=== PATIENT | male | born 1945 | race Caucasian/White ===

== ENCOUNTER 2023-03-12 09:55 | Outpatient (OUT) | payer MEDICARE, SELFPAY ==
--- NOTE | 2023-03-12 10:06 | US_ITS ---
The [address] [address] Patient Name: CHIKI FOLEY MRN: [id number] date: 1945 Sex: M Assigned Patient Location: US Current Patient Location: US Accession/Order Number: [id number] Exam Date: 03/12/2023 10:02 Report Date: 03/12/2023 11:59 At the request of: NICOLASA MCKEON Procedure: US renal BI Ultrasound kidneys, bilateral HISTORY: Hematuria R31.29 hematuria for 15 years. COMPARISON: None. TECHNIQUE: Transabdominal ultrasound imaging of both kidneys was performed. FINDINGS: Both kidneys demonstrate normal echotexture and echogenicity. The right kidney measures 9.6 x 4.5 x 5.3 cm. There is no hydronephrosis of right kidney. The left kidney measures 10.5 x 5.0 x 6.7 cm. An echogenic structure with twinkle artifact at the lower pole compatible with a nonobstructing stone measures 1.1 x 0.8 x 0.3 cm. No hydronephrosis of left kidney. The bladder is moderately distended with volume at 213 cc. Ureteral jets not visualized. Prominent prostate gland with large central calcification measuring 1.4 cm. US/US renal BI IMPRESSION: 1. 1.1 cm nonobstructing left lower pole renal stone. Otherwise, normal kidneys for age. Negative for hydronephrosis or structural renal lesion. 2. Normal appearance of bladder. 3. [place] calcification within a prominent prostate gland. Electronically authenticated by: JASMYN ERAZO Date: 03/12/2023 11:59
== END 2023-03-12 09:56 | disposition home or self-care (01) ==
LOC: US 09:55
PROVIDERS: PCP Family Medicine; Visit Provider Urology
DX: R31.29 Other microscopic hematuria (principal); Z85.46 Personal history of malignant neoplasm of prostate; N20.0 Calculus of kidney; N42.89 Other specified disorders of prostate
CPT/HCPCS: 76775

== ENCOUNTER 2023-03-20 12:24 | Outpatient (OUT) | payer MEDICARE, SELFPAY ==
--- NOTE | 2023-03-20 12:36 | XR_ITS ---
The [address] [address] Patient Name: CHIKI FOLEY MRN: [id number] date: 1945 Sex: M Assigned Patient Location: [facility] Current Patient Location: [facility] Accession/Order Number: [id number] Exam Date: 03/20/2023 12:44 Report Date: 03/22/2023 17:16 At the request of: NICOLASA MCKEON Procedure: XR abdomen 1V EXAM: XR abdomen 1V HISTORY: Kidney Stones N20.0 COMPARISON: None. TECHNIQUE: Abdominal X-ray, 1 view FINDINGS: Support devices: None. Bowel: Unremarkable bowel gas pattern. No bowel dilatation. Evidence of constipation. No radiographic evidence of nephrolithiasis or ureterolithiasis. Additional findings: None. XR/XR abdomen 1V IMPRESSION: No radiographic evidence of nephrolithiasis or ureterolithiasis. Evidence of constipation. Electronically authenticated by: ALLIE CLARK Date: 03/22/2023 17:16
== END 2023-03-20 12:25 | disposition home or self-care (01) ==
PROVIDERS: PCP Family Medicine; Visit Provider Urology
DX: N20.0 Calculus of kidney (principal)
CPT/HCPCS: 74018

== ENCOUNTER 2023-04-02 10:13 | Outpatient (OUT) | payer MEDICARE, SELFPAY ==
--- NOTE | 2023-04-02 10:16 | CT_ITS ---
The [address] [address] Patient Name: CHIKI FOLEY MRN: [id number] date: 1945 Sex: M Assigned Patient Location: CT Current Patient Location: CT Accession/Order Number: [id number] Exam Date: 04/02/2023 10:43 Report Date: 04/02/2023 16:16 At the request of: NICOLASA MCKEON Procedure: CT abdomen pelvis wo con CT abdomen pelvis wo con CLINICAL HISTORY: Kidney Stones COMPARISON: 05/20/2019 CT abdomen/pelvis. 03/20/2023 KUB. TECHNIQUE: No IV contrast axial CT scan from lung bases through symphysis pubis. Lack of IV contrast limits evaluation of solid organs. Oral contrast was not administered. Coronal and sagittal reconstructed images generated. Dose reduction techniques were achieved by using automated exposure control and/or adjustment of mA and/or kV according to patient size and/or use of iterative reconstruction technique. FINDINGS: CT ABDOMEN FINDINGS: Normal heart size. Pacemaker leads. Lung bases with slight chronic scarring and no acute process. Liver and spleen normal in size. Multiple tiny calcified splenic greater than hepatic granulomas. Normal-sized adrenal glands. Gallbladder and pancreas unremarkable. No renal the stones or hydronephrosis. Atherosclerotic aorta without aneurysm. Left renal vascular calcifications again seen. GI tract nondilated without obstruction. Moderate to large retained stool throughout most of the colon. No significant inflammatory changes or ascites. Ventral abdominal wall fatty hernia is measuring 7.2 cm greatest axial superiorly and 5.[address] PELVIS FINDINGS: Tiny focus of nonspecific gas in the urinary bladder. Normal-sized prostate. No free fluid in the pelvis. Tiny fatty inguinal hernias. Lumbar spondylosis without acute bony process. CT/CT abdomen pelvis wo con IMPRESSION: No renal stones or hydronephrosis. Small focus of gas in the urinary bladder is nonspecific but possibly related to recent catheterization. Significant retained stool in the colon with no obstruction or free air. Ventral abdominal wall fatty hernia is are relatively similar to prior. Electronically authenticated by: SARITA SIMMONS Date: 04/02/2023 16:16
== END 2023-04-02 10:14 | disposition home or self-care (01) ==
LOC: CT 10:13
PROVIDERS: PCP Family Medicine; Visit Provider Urology
DX: N20.0 Calculus of kidney (principal)
CPT/HCPCS: 74176

== ENCOUNTER 2023-06-09 09:17 | Outpatient (OUT) | payer MEDICARE, SELFPAY ==
--- NOTE | 2023-06-09 09:21 | CT_ITS ---
[address] [address] Patient Name: CHIKI FOLEY MRN: [id number] date: 1945 Sex: M Assigned Patient Location: CT Current Patient Location: Accession/Order Number: [id number] Exam Date: 06/09/2023 09:30 Report Date: 06/10/2023 10:42 At the request of: NON-STAFF PHYSICIAN Procedure: CT chest high res EXAMINATION: CT chest high res HISTORY: Cough, Dyspnea COMPARISON: No relevant comparison available. TECHNIQUE: Axial images were obtained at 10 mm intervals during inspiration and expiration in the supine and prone positions. No IV contrast given. Dose reduction techniques were achieved by using automated exposure control and/or adjustment of mA and/or kV according to patient size and/or use of iterative reconstruction technique. FINDINGS: LUNGS: Mild emphysematous changes and chronic scarring. No acute infiltrates, air trapping, or chronic interstitial changes. PLEURA: No mass, effusion, or pneumothorax. ALEX: Calcified right hilar lymph nodes compatible with chronic granulomatous disease. MEDIASTINUM: No mass or adenopathy. CHEST WALL: Mild bilateral gynecomastia. No axillary mass or adenopathy. LIMITED ABDOMEN: No suspicious findings. Limited images of the upper abdomen. OTHER: Negative. CT/CT chest high res IMPRESSION: 1. No air trapping, fibrosis, or significant chronic interstitial changes. 2. Mild emphysematous changes. No acute infiltrates. Electronically authenticated by: SHAY BERNSTEIN Date: 06/10/2023 10:42
== END 2023-06-09 09:18 | disposition home or self-care (01) ==
LOC: CT 09:17
PROVIDERS: PCP Family Medicine
DX: R06.00 Dyspnea, unspecified (principal); R05.9 Cough, unspecified
CPT/HCPCS: 71250

== ENCOUNTER 2023-07-28 10:17 | Outpatient (OUT) | payer MEDICARE, SELFPAY | END 2023-07-28 10:18 | disposition home or self-care (01) | LOC: LAB 10:19 | PROVIDERS: PCP Family Medicine; Visit Provider Internal Medicine Interventional Cardiology | DX: R06.09 Other forms of dyspnea (principal) | CPT/HCPCS: 36415; 83880 ==

== ENCOUNTER 2023-08-06 10:04 | Outpatient (OUT) | payer MEDICARE, SELFPAY ==
--- OUTSIDE RECORDS SUMMARY | 2023-08-06 10:40 | XMS_ITS | CCD ---
Author Name Unknown Address [address] [facility] [address] [place] [address] Organization [facility] Care Team Providers Care Shoe Cleaner Name Role Phone CHANCECRESCENCIO Referring Unavailable WILL SHERWOOD Primary Care Unavailable MYA BHAKTA Attending Unavailable MYA BHAKTA Admitting Unavailable VT Procedure Practitioner Unavailab CONNOR Herrera Surgeon Unavailable MYA BHAKTA Surgeon Unavailable VT Procedure Practitioner Unavailab WILL Jackson Primary Care Physician Will Sherwood MD Primary Care Provider JARETT, DR WILL Del Toro Attending Unavailable JARETT, DR WILL Del Toro Admitting Unavailable SHERWOOD, DR WILL Del Toro Consulting Unavailable JARETT, DR WILL Del Toro Primary Care Unavailable SHERWOOD, DR WILL Del Toro Attending Unavailable JARETT, DR WILL Del Toro Admitting Unavailable JARETT, DR WILL Del Toro Consulting Unavailable JARETT, DR WILL Del Toro Primary Care Unavailable HAY, DR MORRISON Consulting Unavailable JESERYA Consulting Unavailable JARETT, DR WILL Del Toro Primary Care Unavailable MISC, DR HERRERA Admitting Unavailable MISC, DR HERRERA Attending Unavailable MISC, DR HERRERA Admitting Unavailable MISC, DR HERRERA Attending Unavailable JARETT, DR WILL Del Toro Primary Care Unavailable MISC, DR HERRERA Consulting Unavailable JENICRISTÓBAL Consulting Unavailable JENI, CRISTÓBAL Admitting Unavailable JENICRISTÓBAL Attending Unavailable JARETT, DR WILL Del Toro Primary Care Unavailable SHERWOOD, DR WILL Del Toro Attending Unavailable JARETT, DR WILL Del Toro Primary Care Unavailable SHERWOOD, DR WILL Del Toro Admitting Unavailable JARETT, DR WILL Del Toro Consulting Unavailable REGGIE, DR MORRISON Admitting Unavailable ZIEBER, DR SHAY Sewell Consulting Unavailable REGGIE, DR MORRISON Attending Unavailable JARETT, DR WILL Del Toro Primary Care Unavailable HAY, DR MORRISON Consulting Unavailable MOUKARBEL, DR BREWER Consulting Unavailable SHERWOOD, DR WILL Del Toro Primary Care Unavailable MOUKARBEL, DR BREWER Admitting Unavailable MOUKARBEL, DR BREWER Attending Unavailable SHERWOOD, DR WILL Del Toro Primary Care Unavailable JENI, CRISTÓBAL Consulting Unavailable JENI, CRISTÓBAL Admitting Unavailable JENI, CRISTÓBAL Attending Unavailable SHERWOOD, DR WILL Del Toro Primary Care Unavailable SHERWOOD, DR WILL Del Toro Consulting Unavailable JENI, CRISTÓBAL Admitting Unavailable JENI, CRISTÓBAL Attending Unavailable JENI, CRISTÓBAL Consulting Unavailable MOUKARBEL, DR BREWER Consulting Unavailable MOUKARBEL, DR BREWER Admitting Unavailable SHERWOOD, DR WILL Del Toro Primary Care Unavailable MOUKARBEL, DR BREWER Attending Unavailable SHERWOOD, DR WILL Del Toro Primary Care Unavailable MOUKARBEL, DR BREWER Consulting Unavailable MOUKARBEL, DR BREWER Admitting Unavailable MOUKARBEL, DR BREWER Attending Unavailable SHERWOOD, DR WILL Del Toro Attending Unavailable SHERWOOD, DR WILL Del Toro Admitting Unavailable SHERWOOD, DR WILL Del Toro Consulting Unavailable SHERWOOD, DR WILL Del Toro Primary Care Unavailable SHERWOOD, DR WILL Del Toro Primary Care Unavailable SHERWOOD, DR WILL Del Toro Consulting Unavailable SHERWOOD, DR WILL Del Toro Attending Unavailable SHERWOOD, DR WILL Del Toro Admitting Unavailable SHERWOOD, DR WILL Del Toro Primary Care Unavailable KUNTE, HOSEA Admitting Unavailable KUNTE, HOSEA Attending Unavailable ZIEBER, DR SHAY Sewell Consulting Unavailable KUNTE, HOSEA Consulting Unavailable SHERWOOD, DR WILL Del Toro Primary Care Unavailable ENGELER, DR DANIELLA Nicolas Consulting Unavailable ENGELER, DR BREWER P Admitting Unavailable ENGELER, DR BREWER P Attending Unavailable SHERWOOD, DR WILL Del Toro Primary Care Unavailable MOUKARBEL, DR DANIELLA Wang Unavailable MOUKARBEL, DR BREWER Attending Unavailable MOUKARBEL, DR BREWER Admitting Unavailable MISC, DR HERRERA Admitting Unavailable SHERWOOD, DR WILL Del Toro Primary Care Unavailable MISC, DR HERRERA Attending Unavailable MISC, DR HERRERA Admitting Unavailable SHERWOOD, DR WILL Del Toro Primary Care Unavailable MISC, DR HERRERA Attending Unavailable MISC, DR HERRERA Consulting Unavailable ZIEBER, DR SHAY Sewell Consulting Unavailable SHERWOOD, DR WILL Del Toro Primary Care Unavailable JENI, CRISTÓBAL Consulting Unavailable JENI, CRISTÓBAL Admitting Unavailable JENI, CRISTÓBAL Attending Unavailable FLOREZ, ALLAN Consulting Unavailable PITO PATTERSON Consulting Unavailable PITO PATTERSON Admitting Unavailable PITO PATTERSON Attending Unavailable SHERWOOD, DR WILL Del Toro Primary Care Unavailable Will Sherwood MD Primary Care Provider Pito Patterson. Primary Care Physician [phone] BERT ACEVEDO Attending Unavailable ANASTASIA SINHA Attending Unavailable CONNOR CARRERA Referring Unavailable ANASTASIA SINHA Attending Unavailable CONNOR CARRERA Referring Unavailable DANIELLA EASTON Attending Unavailable PITO PATTERSON Primary Care Unavailable TYLER DRAPER Attending Unavailable PITO PATTERSON Primary Care Unavailable Pito Patterson Attending Unavailable Pito Patterson Attending Unavailable Corwin, Marlys Valles Attending Unavailable MCKEON, Oni R Attending Unavailable MCKEON, Oni R Attending Unavailable MCKEON, Oni R Attending Unavailable MCKEON, Oni R Attending Unavailable MCKEON, Oni R Referring Unavailable MCKEON, Oni R Admitting Unavailable Corwin, Marlys L Attending Unavailable Corwin, Marlys L Admitting Unavailable Corwin, Marlys L Admitting Unavailable Corwin, Marlys L Attending Unavailable MCKEON, Oni R Admitting Unavailable MCKEON, Oni R Attending Unavailable Pito Patterson Attending Unavailable Pito Patterson Attending Unavailable Corwin, Marlys Valles Attending Unavailable Corwin, Marlys Valles Attending Unavailable Pito Patterson Attending Unavailable Corwin, Marlys Valles Attending Unavailable Pito Patterson Attending Unavailable Pito Patterson Attending Unavailable Allergies Allergy Classification Reported Allergen(s) Allergy Type Date of Onset Reaction(s) Facility (6 sources) Spironolactone; Translations: [SPIRONOLACTONE] Drug Allergy 09-18-2021 Other: See Comments [facility] Medications Current Medications Medication Drug Class(es) Dates Sig (Normalized) Sig (Original) Acetaminophen / Codeine (6 sources) Opioid Agonist Start: 02-24-2019 take 1 tablet by mouth every six hours acetaminophen-cod eine #3 tab(s), Oral, q6hr Start Date: 02/24/19 Status: Ordered acetaminophen-co deine (TYLENOL-COD #3) 300-30 mg per tablet acetaminophen 300 mg-codeine 30 mg tablet 0 Active Comment on above: acetaminophen 300 mg -codeine 30 mg tablet albuterol 0.83 mg/ml inhalation solution (13 sources) beta2-Adrenergic Agonist Start: 3 take 2.5 mg by inhalation every four hours albuterol 0.083% Inh Kasie 3 mL 2.5 mg, 3 mL, NEB, q4hr, 300 mL, Refill(s) 3, [facility]/pharmacy #[id number], 162, cm, 10/28/22 15:18:00 EDT, Height/Length Dosing, 99.8, kg, 10/28/22 15:18:00 EDT, Weight Dosing Start Date: 12/17/22 Status: Ordered Start: 12-17-2022 albuterol 0.08 3% Inh Kasie 3 mL See Instructions, 150 mL, Refill(s) 0, INHALE 1 VIAL VIA NEBULIZER EVERY 6 HOURS, [facility] STORE [id number], 162, cm, 10/28/22 15:18:00 EDT, Height/Length Dosing, 99.8, kg, 10/28/22 15:18:00 EDT, Weight Dosing Start Date: 12/17/22 Status: Ordered Start: 02-24-2019 take 1 dose by inhal ation every four hours albuterol (PROVENTIL) 2.5 mg /3 mL (0.083 %) nebulizer solution albuterol sulfate 2.5 mg/3 mL (0.083 %) solution for nebulization INHALE 1 VIAL VIA NEBULIZER EVERY 4 HOURS 0 02/24/2019 Active Start: 02-24-2019 take 1 mg by inhalat ion every six hours albuterol 0.083% Inh Kasie 3 mL mg, mL, NEB, q6hr Start Date: 02/24/19 Status: Ordered Start: 05-22-2016 PROAIR HFA 90 mcg/actuation inhaler Inhale 1 Puff as instructed as needed. 0 05/22/2016 Active Comment on above: Inhale 1 Puff as ins tructed as needed. albuterol sulfate 2. 5 mg/3 mL (0.083 %) solution for nebulization INHALE 1 VIAL VIA NEBULIZER EVERY 4 HOURS budesonide 0.25 mg/ml inhalation suspension (9 sources) Corticosteroid Start: 10-29-19 take 0.5 mg by inhalation twice daily budesonide 0.5 mg/2 mL Inh Susp 0.5 mg = 2 mL, NEB, BID, # 120 mL, Refills(s) 11, Pharmacy: [facility]/pharmacy #[id number], 162, cm, 10/28/22 15:18:00 EDT, Height/Length Dosing, 99.8, kg, 10/28/22 15:18:00 EDT, Weight Dosing Start Date: 10/28/22 Status: Ordered Start: 02-24-2019 take 0.5 mg by inhal ation twice daily budesonide 0.5 mg/2 mL Inh Susp 0.5 mg = 2 mL, NEB, BID, # 120 mL Start Date: 02/24/19 Status: Ordered budesonide (PULM ICORT) 0.5 mg/2 mL nebulizer solution 2 mL. 0 Active Comment on above: 2 mL. Calcium Citrate / Vitamin D (4 sources) Start: 02-24-2019 calcium-vitamin D Start Date: 02/24/19 Status: Ordered furosemide 40 mg oral tablet (8 sources) Loop Diuretic Start: 01-22-2023 take 1 tablet by mouth once daily furosemide 40 mg Tab 40 mg = 1 tab(s), Oral, Daily, Refills(s) 0 Start Date: 01/22/23 Status: Ordered Start: 06-26-2021 furosemide (LA SIX) 20 mg tablet q 24 HR. 0 06/26/2021 Active Comment on above: q 24 HR. gabapentin 300 mg oral capsule (3 sources) Anti-epileptic Agent Start: 03-09-2023 take 1 capsule by mouth once daily at bedtime gabapentin 300 mg Cap 300 mg = 1 cap(s), Oral, Once a day (at bedtime), # 30 cap(s), Refills(s) 0, Pharmacy: [facility]/pharmacy #[id number], 168, cm, 03/09/23 11:04:00 EDT, Height/Length Dosing, 103, kg, 03/09/23 11:04:00 EDT, Weight Dosing Start Date: 03/09/23 Status: Ordered Start: 01-22-2023 take 1 capsule by [facility] once daily at bedtime gabapentin 300 mg Cap 300 mg = 1 cap(s), Oral, Once a day (at bedtime), # 30 cap(s), Refills(s) 0, Pharmacy: [facility]/pharmacy #[id number], 162, cm, 01/22/23 13:19:00 EDT, Height/Length Dosing, 98.3, kg, 01/22/23 13:19:00 EDT, Weight Dosing Start Date: 01/22/23 Status: Ordered ipratropium bromide 0.042 mg/actuat metered dose nasal spray (3 sources) Anticholinergic Start: 03-13-2023 End: 03-07-2024 take 2 spray(s) nasal route twice daily, then take 2 spray(s) nasal route twice daily ipratropium Nasal 0.06% [place] 2 spray(s), Nasal, BID for 90 day(s), 45 mL, Refill(s) 3, PLACE 2 SPRAYS IN EACH NOSTRIL TWO TIMES DAILY., [facility]/pharmacy #[id number], 168, cm, 03/09/23 11:04:00 EDT, Height/Length Dosing, 103, kg, 03/09/23 11:04:00 EDT, Weight Dosing Start Date: 03/13/23 Stop Date: 03/07/24 Status: Ordered Start: 02-20-2023 take 1 dose nasal ro [place] twice daily, then take 2 spray(s) nasal route twice daily ipratropium Nasal 0.06% [place] 2 spray(s), Nasal, BID, 1 EA, Refill(s) 1, PLACE 2 SPRAYS IN EACH NOSTRIL TWO TIMES DAILY., [facility]/pharmacy #[id number], 162, cm, 01/22/23 13:19:00 EDT, Height/Length Dosing, 98.3, kg, 01/22/23 13:19:00 EDT, Weight Dosing Start Date: 02/20/23 Status: Ordered Start: 01-22-2023 take 1 dose nasal ro [place] twice daily, then take 2 spray(s) nasal route twice daily ipratropium Nasal 0.06% [place] 2 spray(s), Nasal, BID, 1 EA, Refill(s) 1, PLACE 2 SPRAYS IN EACH NOSTRIL TWO TIMES DAILY., [facility]/pharmacy #[id number], 162, cm, 01/22/23 13:19:00 EDT, Height/Length Dosing, 98.3, kg, 01/22/23 13:19:00 EDT, Weight Dosing Start Date: 01/22/23 Status: Ordered 24 hr metoprolol succinate 25 mg extended release oral tablet (8 sources) beta-Adrenergic Xochitl Start: 10-28-2022 metopr olol 25 mg ER Tab 12.5 mg = 0.5 tab(s), Oral, Daily, # 30 tab(s), Refills(s) 0 Start Date: 10/28/22 Status: Ordered take 25 mg by mouth once daily M ETOPROLOL SUCCINATE ORAL Take 25 mg by mouth once daily. 0 Active Comment on above: Take 25 mg by mouth once daily. Nebulizer accessory set (3 sources) Start: 01-22-2023 Nebulizer accessory set Nebulizer accessory set, See Instructions, 1 EA, 0, pt to use nebulizer as prescribed for COPD, [facility] Supply, 162, cm, 01/22/23 13:19:00 EDT, Height/Length Dosing, 98.3, kg, 01/22/23 13:19:00 EDT, Weight Dosing Start Date: 01/22/23 Status: Ordered salmeterol (9 sources) beta2-Adrenergic Agonist Start: 05-01-2020 Serevent Diskus 50 mcg inhalation Inhalation, BID, Refills(s) 0 Start Date: 05/01/20 Status: Ordered take 1 puff(s) by inhalation twi ce daily salmeterol (SEREVENT DISKUS) 50 mcg/dose diskus inhaler Inhale 1 Puff as instructed twice daily. 0 Active Comment on above: Inhale 1 Puff as ins tructed twice daily. spironolactone 50 mg oral tablet (6 sources) Aldosterone Antagonist Start: 019 take 1 tablet by mouth once daily spironolactone 50 mg Tab 50 mg = 1 tab(s), Oral, Daily Start Date: 02/24/19 Status: Ordered Comment on above: spironolactone 50 mg tablet vitamin B12 (4 sources) Vitamin B12 Start: 019 Vitamin B12 Start Date: 02/24/19 Status: Ordered Completed/Discontinued Medications Medication Drug Class(es) Dates Sig (Normalized) Sig (Original) albuterol 0.833 mg/ml / ipratropium bromide 0.167 mg/ml inhalation solution (5 sources) Anticholinergic, beta2-Adrenergic Agonist Start: 02-24-2019 take 1 dose by inhalation every six hours as needed ipratropium-albutero l (DUONEB) 0.5 mg-3 mg(2.5 mg base)/3 mL nebu INHALE 1 VIAL VIA NEBULIZER EVERY 6 HOURS NEEDED *DX J44.9* 4 02/24/2019 Active Comment on above: INHALE 1 VIAL VIA NE BULIZER EVERY 6 HOURS NEEDED *DX J44.9* amoxicillin 500 mg oral capsule (5 sources) Penicillin-class Antibacterial Start: 10-05-2020 amoxicillin (POLYMOX, AMOXIL) 500 mg capsule Take 500 mg by mouth. 0 10/05/2020 Active Comment on above: Take 500 mg by mouth . aspirin 81 mg delayed release oral tablet (5 sources) Platelet Aggregation Inhibitor, Nonsteroidal Anti-inflammatory Drug take 1 tablet by mouth once daily aspirin, enteric coated (ASPIRIN, ENTERIC COATED) 81 mg EC tablet Take 81 mg by mouth once daily. 0 Active Comment on above: Take 81 mg by mouth once daily. CALCIUM CITRATE-VITAMIN D3 ORAL (5 sources) CALCIUM CITRATE-VITAMIN D3 ORAL Take by mouth. 0 Active Comment on above: Take by mouth. cephalexin 500 mg oral capsule (5 sources) Cephalosporin Antibacterial Start: 10-31-2020 cephALEXin (KEFLEX) 500 mg capsule Take 500 mg by mouth. 0 10/31/2020 Active Comment on above: Take 500 mg by mouth . cholecalciferol 0.025 mg oral tablet (5 sources) Vitamin D cholecalciferol (VITAMIN D3) 1,000 unit tab tablet Take 1,000 Units by mouth. 0 Active Comment on above: Take 1,000 Units by mouth. ciprofloxacin 500 mg oral tablet (1 source) Quinolone Antimicrobial Start: 03-10-2023 take 1 tablet by mouth once daily Cipro 500 mg Tab 500 mg = 1 tab(s), Oral, Daily, Take 1 tablet the day before the procedure and 1 tablet after the procedure, # 2 tab(s), Refills(s) 0, Pharmacy: [facility]/pharmacy #[id number], 168, cm, 03/09/23 11:04:00 EDT, Height/Length Dosing, 103, kg, 03/09/23 11:04:00 EDT,... Start Date: 03/10/23 Status: Ordered cyanocobalamin, vitamin B-12, (VITAMIN B-12 ORAL) (5 sources) cyanocobalamin, vitamin B-12, (VITAMIN B-12 ORAL) Take by mouth. 0 Active Comment on above: Take by mouth. doxycycline hyclate 100 mg oral capsule (5 sources) Tetracycline-class Drug take 1 capsule by mouth once daily doxycycline hyclate (VIBRAMYCIN) 100 mg capsule Take 100 mg by mouth once daily. 0 Active Comment on above: Take 100 mg by mouth once daily. ferrous sulfate 325 mg oral tablet (5 sources) Start: 05-16-2021 ferrous sulfate 325 mg (65 mg iron) tablet indacaterol (6 sources) Start: 02-24-2019 take 1 capsule by inhalation once daily Arcapta Neohaler 75 mcg inhalation capsule 75 microgram = 1 cap(s), Inhalation, Daily Start Date: 02/24/19 Status: Ordered indacaterol (ARC APTA NEOHALER) 75 mcg CpDv Arcapta Neohaler 75 mcg capsule with inhalation device 0 Active Comment on above: Arcapta Neohaler 75 mcg capsule with inhalation device levothyroxine sodium 0.1 mg oral tablet (9 sources) l-Thyroxine Start: take 1 tablet by mouth once daily levothyroxine 100 mcg (0.1 mg) Tab 100 microgram = 1 tab(s), Oral, Daily Start Date: 02/24/19 Status: Ordered Start: 02-24-2019 take 1 tablet by noe th once daily levothyroxine 100 mcg (0.1 mg) Tab 100 microgram = 1 tab(s), Oral, Daily Start Date: 02/24/19 Status: Ordered Comment on above: Take 100 mcg by mout h daily before breakfast. polyethylene glycol 3350 63733 mg powder for oral solution (5 sources) Osmotic Laxative Start: 08-04-20 polyethylene glycol 3350 (MIRALAX, GLYCOLAX) 17 gram/dose powder MIX 1 TABLESPOONFUL DIRECTED AND DRINK EVERY DAY 3 08/04/2017 Active Comment on above: MIX 1 TABLESPOONFUL DIRECTED AND DRINK EVERY DAY potassium chloride 10 meq oral tablet (8 sources) Start: 01-23-20 take 1 tablet by mouth once daily potassium chloride 10 mEq ER Tab 10 mEq = 1 tab(s), Oral, Daily, Refills(s) 0 Start Date: 01/22/23 Status: Ordered Start: 06-26-2021 potassium chlo ride SR (MICRO-K) 10 mEq CR capsule predniSONE 10 mg oral tablet (5 sources) take 1 tablet by mouth once daily predniSONE (DELTASONE) 10 mg tablet Take 10 mg by mouth once daily. 0 Active Comment on above: Take 10 mg by mouth once daily. tiotropium 0.018 mg inhalation powder (9 sources) Anticholinergic Start: 9 Spiriva 18 mcg Cap 18 microgram = 1 cap(s), Inhalation, Daily, Using only ONE capsule, have the patient inhale twice, # 90 cap(s), Refills(s) 0 Start Date: 02/24/19 Status: Ordered Start: 02-24-2019 Spiriva 18 mcg Cap 18 microgram = 1 cap(s), Inhalation, Daily, Using only ONE capsule, have the patient inhale twice, # 90 cap(s), Refills(s) 0 Start Date: 02/24/19 Status: Ordered tiotropium (SPIR HAILEE WITH HANDIHALER) 18 mcg inhalation capsule 0 Active Problems Active Problems Problem Classification Problem Date Documented Date Episodic/Chronic Abdominal hernia (3 sources) Hernia of anterior abdominal wall 10-28-2022 Episodic Calculus of urinary tract (4 sources) Kidney stone 06-07-2019 Episodic Cancer of prostate (5 sources) Malignant tumor of prostate; Translations: [Malignant neoplasm of prostate] Onset: 01-07-2022 01-05-2020 Chronic Cancer of prostate (6 sources) Personal history of malignant neoplasm of prostate; Translations: [History of malignant neoplasm of prostate] Onset: 11-19-2021 Episodic Chronic obstructive pulmonary disease and bronchiectasis (6 sources) Asthma-chronic obstructive pulmonary disease overlap syndrome; Translations: [Chronic obstructive pulmonary disease, unspecified] Onset: 05-20-2021 02-24-2019 Chronic Conduction disorders (6 sources) Atrioventricular block, complete; Translations: [Presence of cardiac pacemaker] Onset: 05-23-2022 Chronic Congestive heart failure; nonhypertensive (8 sources) Chronic systolic (congestive) heart failure; Translations: [Heart failure, unspecified] Onset: 04-29-2021 Chronic Deficiency and other anemia (1 source) Macrocytic anemia; Translations: [Nutritional anemia, unspecified] Episodic Disorders of lipid metabolism (6 sources) Hyperlipidemia, unspecified; Translations: [Mixed hyperlipidemia] Onset: 02-10-2022 Chronic Genitourinary symptoms and ill-defined conditions (12 sources) Poor stream of urine; Translations: [Poor urinary stream] Onset: 11-19-2021 Episodic Hyperplasia of prostate (10 sources) Benign prostatic hypertrophy with outflow obstruction; Translations: [Benign prostatic hyperplasia with lower urinary tract symptoms] Onset: 04-05-2022 Chronic Immunity disorders (4 sources) Hypergammaglobulinemia , unspecified; Translations: [HYPERGAMMAGLOBULINEMI A UNSPECIFIED] Onset: 09-24-2021 Chronic Neoplasms of unspecified nature or uncertain behavior (2 sources) Monoclonal gammopathy of uncertain significance; Translations: [Monoclonal gammopathy] Chronic Non-Hodgkin`s lymphoma (7 sources) Malignant lymphoma; Translations: [Diffuse non-Hodgkin's lymphoma, large cell (clinical)] Onset: 02-21-2013 02-24-2019 Chronic Non-Hodgkin`s lymphoma (3 sources) History of B-cell lymphoma 10-28-2022 Episodic Nutritional deficiencies (1 source) Vitamin D deficiency, unspecified; Translations: [VITAMIN D DEFICIENCY UNSPECIFIED] Onset: 05-03-2021 Chronic Nutritional deficiencies (9 sources) Cobalamin deficiency; Translations: [Deficiency of other specified B group vitamins] Onset: 07-13-2017 07-13-2017 Episodic Other circulatory disease (7 sources) Personal history of transient ischemic attack (TIA), and cerebral infarction without residual deficits; Translations: [PERS HX TIA AND CI NO RESID DEFICIT] Onset: 09-06-2021 Episodic Other circulatory disease (3 sources) History of cerebrovascular disease 10-28-2022 Episodic Other eye disorders (5 sources) Anisocoria; Translations: [ANISOCORIA] Onset: 05-16-2021 Chronic Other fractures (1 source) Compression fracture of vertebral column 02-24-2019 Episodic Other fractures (3 sources) Wedge fracture of thoracic vertebra 10-28-2022 Episodic Other hereditary and degenerative nervous system conditions (3 sources) Essential tremor 10-28-2022 Chronic Other lower respiratory disease (6 sources) Other forms of dyspnea; Translations: [OTHER FORMS OF DYSPNEA] Onset: 04-16-2022 Episodic Other nervous system disorders (3 sources) 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 Other nutritional; endocrine; and metabolic disorders (1 source) Hypomagnesemia; Translations: [HYPOMAGNESEMIA] Onset: 05-03-2021 Chronic Other nutritional; endocrine; and metabolic disorders (3 sources) Obesity 01-16-2023 Chronic Other screening for suspected conditions (not mental disorders or infectious disease) (6 sources) Raised prostate specific antigen; Translations: [Abnormal findings on diagnostic imaging of heart and coronary circulation] Onset: 05-28-2021 05-23-2019 Episodic Other upper respiratory disease (3 sources) Nasal congestion 01-22-2023 Episodic Residual codes; unclassified (5 sources) Localized edema; Translations: [LOCALIZED EDEMA] Onset: 02-07-2022 Episodic Screening and history of mental health and substance abuse codes (5 sources) Ex-smoker; Translations: [Personal history of nicotine dependence] Onset: 05-28-2021 05-23-2019 Episodic Thyroid disorders (8 sources) Hypothyroidism; Translations: [Hypothyroidism, unspecified] Onset: 05-28-2021 02-24-2019 Chronic Unclassified (1 source) CONTACT W/AND (SUSP) EXPOS COVID-19; Translations: [CONTACT W/AND (SUSP) EXPOS COVID-19] Onset: 05-28-2021 Unclassified (1 source) Other ventricular tachycardia; Translations: [Other ventricular tachycardia] Onset: 11-28-2022 Past or Other Problems Problem Classification Problem Date Documented Da te Episodic/Chronic Aspiration pneumonitis; food/vomitus (1 source) Pneumonitis due to inhalation of food and vomit; Translations: [PNEUMONITIS D/T INHAL FOOD AND VOMIT] Onset: 09-11-2021 Episodic Deficiency and other anemia (5 sources) Anemia, unspecified; Translations: [ANEMIA UNSPECIFIED] Onset: 05-03-2021 Episodic Deficiency and other anemia (1 source) Iron deficiency anemia, unspecified; Translations: [IRON DEFICIENCY ANEMIA UNSPECIFIED] Onset: 05-28-2021 Episodic Fluid and electrolyte disorders (4 sources) Hyperkalemia; Translations: [HYPERKALEMIA] Onset: 05-14-2021 Episodic Immunizations and screening for infectious disease (4 sources) Encounter for immunization; Translations: [ENCOUNTER FOR IMMUNIZATION] Onset: 06-25-2021 Episodic Malaise and fatigue (1 source) Other fatigue; Translations: [OTHER FATIGUE] Onset: 06-14-2021 Episodic Other aftercare (1 source) buttermaker (current) use of aspirin; Translations: [PENITENTIARY CURRENT USE OF ASPIRIN] Onset: 05-28-2021 Episodic Other aftercare (1 source) Other rat exterminator (current) drug therapy; Translations: [OTH VEHICLE RETURN ASSOCIATE CURRENT DRUG THERAPY] Onset: 05-28-2021 Episodic Other bone disease and musculoskeletal deformities (4 sources) Osteolysis, unspecified site; Translations: [OSTEOLYSIS UNSPECIFIED SITE] Onset: 09-10-2021 Episodic Other connective tissue disease (1 source) Muscle weakness (generalized); Translations: [MUSCLE WEAKNESS GENERALIZED] Onset: 05-28-2021 Episodic Other lower respiratory disease (3 sources) Shortness of breath; Translations: [SHORTNESS OF BREATH] Onset: 05-15-2021 Episodic Other lower respiratory disease (1 source) Hypoxemia; Translations: [HYPOXEMIA] Onset: 05-28-2021 Episodic Pneumonia (except that caused by tuberculosis or sexually transmitted disease) (4 sources) Pneumonia, unspecified organism; Translations: [PNEUMONIA UNSPECIFIED ORGANISM] Onset: 09-05-2021 Episodic Unclassified (1 source) Other ventricular tachycardia; Translations: [Other ventricular tachycardia] Onset: 11-28-2022 Results Test Name Value Interpretation Reference Range Facility Consultation Noteon 08-05-20 Consultation Note [id number]#1.00TIFF [facility] Consultation Note [id number]#1.00TIFF [facility] Consultation Noteon 08-04-20 Consultation Note [id number]#1.00TIFF [facility] Physician Referralon 023 Physician Referral [id number]#1.00TIFF [facility] Ambulatory Visit Summaryon 1 10-04-2022 Ambulatory Visit Summary ALTHEAMARY CHIKI Parsons :1945 Visit Date:08/03/2023 Ambulatory Visit Instructions Your Diagnosis Compression fracture of thoracic vertebra with routine healing, unspecified thoracic vertebral level, subsequent encounter COPD with asthma Chronic diastolic heart failure Severe obesity MGUS (monoclonal gammopathy of unknown significance) BMI 33.0-33.9,adult Class 1 obesity due to excess calories in adult Former smoker Your Care Team Attending Physician - Pito Patterson MD Primary Care Physician - Pito Patterson MD This Is Your Medications List Contact prescribing physician if questions or concerns Misc Prescription (Nebulizer accessory set) albuterol (albuterol 0.083% Inh Kasie 3 mL) aspirin (aspirin 81 mg Oral EC Tab) budesonide (budesonide 0.5 mg/2 mL Inh Susp) calcium-vitamin D cyanocobalamin (Vitamin B12) furosemide (furosemide 40 mg Tab) ipratropium nasal (ipratropium Nasal 0.06% Pronghorn) levothyroxine (levothyroxine 100 mcg (0.1 mg) Tab) metoprolol (metoprolol 25 mg ER Tab) potassium chloride (potassium chloride 10 mEq ER Tab) salmeterol (Serevent Diskus 50 mcg inhalation powder) tiotropium (Spiriva 18 mcg Cap) [Image Removed: STOP]Stop taking these medications amoxicillin (amoxicillin 500 mg Cap) gabapentin (gabapentin 300 mg Cap) Procedures Performed Cardiac pacemaker (2019), Transrectal biopsy of prostate using ultrasound (US) guidance (03/10/2019), Cystourethroscopy (03/12/2010), Lymphadenectomy of sentinel lymph node (08/17/2006). Discharge Vitals Heart Rate (Peripheral) 76 Respiratory Rate 18 Blood Pressure 120/78 Height 168 cm Height 66 in Weight 95.8 kg Weight 210.76 lb BMI 33.94 What to do next Scheduled Follow-Up Appointments Thursday 10:30 AM EST With: Navarro VENTURA, Pito Davidson Where: [facility] [place] Invalid Interpretation Code [address] [place] [address]- \.br \ Thursday 11:15 AM EDT \.br\ With: MIKE VENTURA, Oni Sewell\.br\ Where: [facility] Auth for Release of Medical Recordson 08-03-2023 Auth for Release of Medical Records [id number]#1.00TIFF Normal [facility] Family Medicine Office/Clini c Noteon 08-03-2023 Family Medicine Office/Clinic Note HPI Staff Chiki is a 78 year old male presenting for follow up for a motorized wheelchair ELO was to see [facility] to find out what all insurance needs to approve this patient contacted [facility] and was told the dr has to assess him to see if he's qualified, it's a conflict of interest for them to sell it to him and determining a need for it. 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 Will see him in sep and will do the 600 foot walk on him. Dr Easton doubled his lasix for awhile and will see him back shortly to see if it helped. Having and echo this and labs in another week flu: UTD questions/concerns: really feels he's needs antibiotics, currently using ipaptropium nasal spray that Marlys gave him History of Present Illness - Please see staff HPI - Pt is having issues with ambulation. Worsening with hear issues and with COPD. Review of Systems PHQ Score Initial Depression Screen Score: 0 SCORE Physical Exam Vitals & Measurements HR: 76(Peripheral) RR: 18 BP: 120/78 SpO2: 94% HT: 66 in HT: 168 cm WT: 95.8 kg WT: 210.76 lb BMI: 33.94 General: alert, no acute distress ENMT: oral mucosa moist, Cardiovascular: regular rate and rhythm, normal peripheral perfusion Respiratory: Lungs CTA, respirations non labored Extremities: no deformity, no trauma, No pitting edema Neurological: oriented x 4, LOC appropriate for age, CN II-XII intact, motor strength equal & normal bilaterally, speech normal Abdomen: Soft, Nontender, Non-distended, + BS Assessment/Plan 1. Compression fracture of thoracic vertebra with routine healing, unspecified thoracic vertebral level, subsequent encounter (S22.000D: Wedge compression fracture of unspecified thoracic vertebra, subsequent encounter for fracture with routine healing) - Pt is not ambulating well. Only a 100 feet per patient then having to stop to rest. Partial pain and partial breathing issues. - Pt needs help. - Will do a PT evaluation for ambulation. - Pt needs to follow up in 3 weeks. Ordered: Physical Therapy Evaluation - External Facility 2. COPD with asthma (J44.9: Chronic obstructive pulmonary disease, unspecified) - Not doing well. - Needs records from Pulm. - Requested records - Pt needs to follow up. Ordered: Physical Therapy Evaluation - External Facility 3. Chronic diastolic heart failure (I50.32: Chronic diastolic (congestive) heart failure) - Some improvement - Down 10 pounds this week in fluid - Seeing cardiology - Concerned for worsening heart failure Ordered: Physical Therapy Evaluation - External Facility 4. Severe obesity (E66.01: Morbid (severe) obesity due to excess calories) - Diet and exercise if able to Ordered: Physical Therapy Evaluation - External Facility 5. MGUS (monoclonal gammopathy of unknown significance) (D47.2: Monoclonal gammopathy) - Reviewed Oncology notes - Continue to follow up Ordered: Physical Therapy Evaluation - External Facility Total time spent preparing for the encounter, evaluating and assessing the patient, documenting the visit, and ordering appropriate follow-up work was 35 minutes. Follow-up No qualifying data available Patient Education BMI for Adults Problem List/Past Medical History Ongoing B12 deficiency BPH with urinary obstruction Chronic diastolic heart failure Compression fracture of thoracic vertebra with routine healing, unspecified thoracic vertebral level, subsequent encounter COPD with asthma Essential tremor Former smoker Hearing loss History of B-cell lymphoma History of prostate cancer Hx of cerebrovascular disorder Hypothyroid MGUS (monoclonal gammopathy of unknown significance) Microscopic hematuria Nasal congestion Neuropathy, arm Obesity due to excess calories Prostate nodule Pulmonary hypertension Severe obesity Ventral hernia Historical No qualifying data Procedure/Surgical History Cardiac pacemaker (2019), Transrectal biopsy of prostate using ultrasound (US) guidance (03/10/2019), Cystourethroscopy (03/12/2010), Lymphadenectomy of sentinel lymph node (08/17/2006). Medications albuterol 0.083% Inh Kasie 3 mL, See Instructions aspirin 81 mg Oral EC Tab, 81 mg= 1 tab(s), Oral, Daily budesonide 0.5 mg/2 mL Inh Susp, 0.5 mg= 2 mL, NEB, BID, 11 refills calcium-vitamin D furosemide 40 mg Tab, 80 mg= 2 tab(s), Oral, Daily ipratropium Nasal 0.06% Pronghorn, 2 spray(s), Nasal, BID, 3 refills levothyroxine 100 mcg (0.1 mg) Tab, 100 mcg= 1 tab(s), Oral, Daily metoprolol 25 mg ER Tab, 25 mg= 1 tab(s), Oral, Daily Nebulizer accessory set, See Instructions potassium chloride 10 mEq ER Tab, 10 mEq= 1 tab(s), Oral, Daily Serevent Diskus 50 mcg inhalation powder, 50 mcg= 1 EA, Inhalation, q12hr, 3 refills Spiriva 18 mcg Cap, 18 mcg= 1 cap(s), Inhalation, Daily, 1 refills Vitamin B12 Allergies No Known Allergies Social History Alcohol 1 (more content not included)... Normal [facility] Comment on above: Result Comment: Bipin pinzonally Signed By: Navarro VENTURA, Pito Underwood.otf\Date and Time Signed: 08/03/23 14:02 EST Patient Educationon 08-03-20 Patient Education Nutrition BMI for Adults What is BMI? Body mass index (BMI) is a number that is calculated from a person's weight and height. BMI can help estimate how much of a person's weight is composed of fat. BMI does not measure body fat directly. Rather, it is an alternative to procedures that directly measure body fat, which can be difficult and expensive. BMI can help identify people who may be at higher risk for certain medical problems. What are BMI measurements used for? BMI is used as a screening tool to identify possible weight problems. It helps determine whether a person is obese, overweight, a healthy weight, or underweight. BMI is useful for: ? Identifying a weight problem that may be related to a medical condition or may increase the risk for medical problems. ? Promoting changes, such as changes in diet and exercise, to help reach a healthy weight. BMI screening can be repeated to see if these changes are working. How is BMI calculated? BMI involves measuring your weight in relation to your height. Both height and weight are measured, and the BMI is calculated from those numbers. This can be done either in [place] ([place] or metric measurements. Note that charts and online BMI calculators are available to help you find your BMI quickly and easily without having to do these calculations yourself. To calculate your BMI in [place] ([place] measurements: 1. Measure your weight in pounds (lb). 2. Multiply the number of pounds by 703. ? For example, for a person who weighs 180 lb, multiply that number by 703, which equals 126,540. 3. Measure your height in inches. Then multiply that number by itself to get a measurement called inches squared. ? For example, for a person who is 70 inches tall, the inches squared measurement is 70 inches x 70 inches, which equals 4,900 inches squared. 4. Divide the total from step 2 (number of lb x 703) by the total from step 3 (inches squared): 126,540 ? 4,900 = 25.8. This is your BMI. To calculate your BMI in metric measurements: 1. Measure your weight in kilograms (kg). 2. Measure your height in meters (m). Then multiply that number by itself to get a measurement called meters squared. ? For example, for a person who is 1.75 m tall, the meters squared measurement is 1.75 m x 1.75 m, which is equal to 3.1 meters squared. 3. Divide the number of kilograms (your weight) by the meters squared number. In this example: 70 ? 3.1 = 22.6. This is your BMI. What do the results mean? BMI charts are used to identify whether you are underweight, normal weight, overweight, or obese. The following guidelines will be used: ? Underweight: BMI less than 18.5. ? Normal weight: BMI between 18.5 and 24.9. ? Overweight: BMI between 25 and 29.9. ? Obese: BMI of 30 or above. Keep these notes in mind: ? Weight includes both fat and muscle, so someone with a muscular build, such as an athlete, may have a BMI that is higher than 24.9. In cases like these, BMI is not an accurate measure of body fat. ? To determine if excess body fat is the cause of a BMI of 25 or higher, further assessments may need to be done by a health care provider. ? BMI is usually interpreted in the same way for men and women. Where to find more information For more information about BMI, including tools to quickly calculate your BMI, go to these websites: ? Centers for Disease Control and Prevention: www.cdc.gov ? [place] Heart Association: www.heart.org ? National Heart, Lung, and Blood [place]: www.nhlbi.nih.gov Summary ? Body mass index (BMI) is a number that is calculated from a person's weight and height. ? BMI may help estimate how much of a person's weight is composed of fat. BMI can help identify those who may be at higher risk for certain medical problems. ? BMI can be measured using Camb[place]ian measurements or metric measurements. ? BMI charts are used to identify whether you are underweight, normal weight, overweight, or obese. This information is not intended to replace advice given to you by your health care provider. Make sure you discuss any questions you have with your health care provider. Document Revised: 04/25/2020 Document Reviewed: 03/02/2020 [employer] Patient Education ? 2022 [place] CNOVSPon 07-30-2023 CNOVSP Visit (SP) Office ([place]) ----- CHIKI JUAREZ ([id number]) 1945 M Date Time Provider Department 07/30/23 10:45 AM TYLER DRAPER During your visit today, we recorded the following information about you: Temperature Pulse Respiration Blood pressure 97.4 degrees 85/minute 16/minute 143/63 Weight Height 97.9 kg 1.727 m Tyler Draper MD 07/30/2023 7:39 PM Signed PATIENT NAME: Chiki Juarez DATE: 07/30/2023 PRIMARY CARE PHYSICIAN: Dr. Pito Patterson OTHER PHYSICIANS: Dr. Mayra Berg ([facility]) Portions of this encounter note have been copied from my note from 07/21/2022 and has been updated where appropriate, and reflect my current medical decision making from today. CC: This is a 78 year old male with a history of MGUS, seen for scheduled follow-up (prior patient of Dr. Herrera). INTERIM HISTORY: Since the patient's last visit here he has had no significant medical changes. 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 No new neurological symptoms. He has intermittent cough and shortness of breath from bronchitis/bronchiectasis . No fevers, night sweats, or weight loss. No unusual pain. MEDICATIONS: albuterol (PROVENTIL) 2.5 mg /3 mL (0.083 %) nebulizer solution albuterol sulfate 2.5 mg/3 mL (0.083 %) solution for nebulization INHALE 1 VIAL VIA NEBULIZER EVERY 4 HOURS amoxicillin (POLYMOX, AMOXIL) 500 mg capsule Take 500 mg by mouth. (Patient not taking: Reported on 07/31/2022) cephALEXin (KEFLEX) 500 mg capsule Take 500 mg by mouth. potassium chloride SR (MICRO-K) 10 mEq CR capsule furosemide (LASIX) 20 mg tablet q 24 HR. ferrous sulfate 325 mg (65 mg iron) tablet influenza vaccine qs 240 mcg, Patients 65 years and older,, PF, (FLUZONE HIGHDOSE QUAD 20-21 PF) 240 mcg/0.7 mL injection Fluzone High-Dose Quad 2019- (PF) 240 mcg/0.7 mL IM syringe PHARMACY ADMINISTERED cholecalciferol (VITAMIN D3) 1,000 unit tab tablet Take 1,000 Units by mouth. METOPROLOL SUCCINATE ORAL Take 25 mg by mouth once daily. doxycycline hyclate (VIBRAMYCIN) 100 mg capsule Take 100 mg by mouth once daily. salmeterol (SEREVENT DISKUS) 50 mcg/dose diskus inhaler Inhale 1 Puff as instructed twice daily. predniSONE (DELTASONE) 10 mg tablet Take 10 mg by mouth once daily. aspirin, enteric coated (ASPIRIN, ENTERIC COATED) 81 mg EC tablet Take 81 mg by mouth once daily. acetaminophen-codeine (TYLENOL-COD #3) 300-30 mg per tablet acetaminophen 300 mg-codeine 30 mg tablet budesonide (PULMICORT) 0.5 mg/2 mL nebulizer solution 2 mL. indacaterol (ARCAPTA NEOHALER) 75 mcg CpDv Arcapta Neohaler 75 mcg capsule with inhalation device ipratropium-albuterol (DUONEB) 0.5 mg-3 mg(2.5 mg base)/3 mL nebu INHALE 1 VIAL VIA NEBULIZER EVERY 6 HOURS NEEDED *DX J44.9* spironolactone (ALDACTONE) 50 mg tablet spironolactone 50 mg tablet tiotropium (SPIRIVA WITH HANDIHALER) 18 mcg inhalation capsule CALCIUM CITRATE-VITAMIN D3 ORAL Take by mouth. cyanocobalamin, vitamin B-12, (VITAMIN B-12 ORAL) Take by mouth. polyethylene glycol 3350 (MIRALAX, GLYCOLAX) 17 gram/dose powder MIX 1 TABLESPOONFUL DIRECTED AND DRINK EVERY DAY PROAIR HFA 90 mcg/actuation inhaler Inhale 1 Puff as instructed as needed. levothyroxine (SYNTHROID) 100 mcg tablet Take 100 mcg by mouth daily before breakfast. 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 HEENT: Negative for frequent or significant headaches, No changes in hearing or vision, no nose bleeds or other nasal problems RESPIRATORY: Negative for cough, wheezing or shortness of breath. CARDIOVASCULAR: Negative for chest pain, leg swelling or palpitations. GI: Negative for abdominal discomfort, blood in stools or black stools or change in bowel habits : No history of dysuria, frequency or incontinence MUSCULOSKELETAL: Negative for: joint pain or swelling, back pain and muscle pain SKIN: Negative for lesions, rash, and itching. HEMATOLOGY/LYMPHOLOGY: Negative for prolonged bleeding, bruising easily or swollen nodes. NEURO: No history of headaches, syncope, paralysis, seizures or tremors PHYSICAL EXAM: Vitals: BP 143/63 Pulse 85 Temp 36.3 ?C (97.4 ?F) (Temporal) Resp 16 Ht 172.7 cm (5' 7.99 ) Wt 97.9 kg (215 lb (more content not included)... Normal [facility] Office Visiton 07-28-2023 Follow-up visit [id number] Tremaine Juarez 1945 M Date Provider Department Center 07/28/2023 DANIELLA CARDONA [facility] Frannie [facility] Family History Problem Relation Age of Onset Stroke Father Family Status - Relation Status Age at Father Level of Service:29611 [place] OFFICE/OUTPATIENT ESTABLISHED MOD MDM 30-39 MIN Normal [facility] Basic metabolic 2000 panelon 07-23-2023 Anion gap [Moles/Vol] 10 mmol/L Normal 9-18 [facility] Comment on above: Order Comment: Speci men Type: BLOOD SPECIMEN Ordering Facility: [facility] Address: [address] [place] [address] Performed By: #### 2 4321-2 #### [facility] CLIA [id number] [address] [place] [address] Calcium [Mass/Vol] 8.4 mg/dL Low 8.5-10.2 [facility] Comment on above: Order Comment: Speci men Type: BLOOD SPECIMEN Ordering Facility: [facility] Address: [address] [place] [address] Performed By: #### 2 4321-2 #### [facility] CLIA [id number] [address] [place] [address] Chloride [Moles/Vol] 103 mmol/L Normal 97-105 [facility] Comment on above: Order Comment: Speci men Type: BLOOD SPECIMEN Ordering Facility: [facility] Address: [address] [place] [address] Performed By: #### 2 4321-2 #### [facility] CLIA [id number] [address] [place] [address] CO2 [Moles/Vol] 24 mmol/L Normal 22-30 [facility] Comment on above: Order Comment: Speci men Type: BLOOD SPECIMEN Ordering Facility: [facility] Address: [address] [place] [address] Performed By: #### 2 4321-2 #### [facility] CLIA [id number] [address] [place] [address] Creatinine [Mass/Vol] 1.33 mg/dL High 0.73-1.22 [facility] Comment on above: Order Comment: Speci men Type: BLOOD SPECIMEN Ordering Facility: [facility] Address: [address] [place] [address] Performed By: #### 2 4321-2 #### [facility] CLIA [id number] [address] [place] [address] Creatinine and Glomerular filtration rate.predicted panel (S/P/Bld) 55 mL/min/1.73m??? Low >=60 [facility] Comment on above: Order Comment: Speci men Type: BLOOD SPECIMEN Ordering Facility: [facility] Address: [facility] [place] [address] Result Comment: Ary mated Glomerular Filtration Rate (eGFR) is calculated using the 2020 CKD-EPI creatinine equation. This equation utilizes serum creatinine, sex, and age as parameters. The creatinine assay has traceable calibration to isotope dilution-mass spectrometry. Refer to KDIGO guidelines for clinical interpretation. In patients with unstable renal function, e.g. those with acute kidney injury, the eGFR may not accurately reflect actual GFR. Performed By: #### 2 4321-2 #### [facility] CLIA [id number] [address] [place] [address] Glucose [Mass/Vol] 156 mg/dL High 74-99 [facility] Comment on above: Order Comment: Liliya hadley Type: BLOOD SPECIMEN Ordering Facility: [facility] Address: [address] [place] [address] Result Comment: The [place] Diabetes Association (ADA) provides guidance for cutoff values for fasting glucose and random glucose. The ADA defines fasting as no caloric intake for at least 8 hours. Fasting plasma glucose results between 100 to 125 mg/dL indicate increased risk for diabetes (prediabetes). Fasting plasma glucose results greater than or equal to 126 mg/dL meet the criteria for diagnosis of diabetes. In the absence of unequivocal hyperglycemia, results should be confirmed by repeat testing. In a patient with classic symptoms of hyperglycemia or hyperglycemic crisis, random plasma glucose results greater than or equal to 200 mg/dL meet the criteria for diagnosis of diabetes. Reference: Standards of Medical Care in Diabetes 2016, [place] Diabetes Association. Diabetes Care. 2016.39(Suppl 1). Performed By: #### 2 4321-2 #### [facility] CLIA [id number] [address] [place] [address] Potassium [Moles/Vol] 3.7 mmol/L Normal 3.7-5.1 [facility] Comment on above: Order Comment: Liliya hadley Type: BLOOD SPECIMEN Ordering Facility: [facility] Address: [address] [place] [address] Performed By: #### 2 4321-2 #### [facility] CLIA [id number] [address] [place] [address] Sodium [Moles/Vol] 137 mmol/L Normal 136-144 [facility] Comment on above: Order Comment: Speci men Type: BLOOD SPECIMEN Ordering Facility: [facility] Address: [address] [place] [address] Performed By: #### 2 4321-2 #### [facility] CLIA [id number] [address] [place] [address] Urea nitrogen [Mass/Vol] 17 mg/dL Normal 9-24 [facility] Comment on above: Order Comment: Speci men Type: BLOOD SPECIMEN Ordering Facility: [facility] Address: [address] [place] [address] Performed By: #### 2 4321-2 #### [facility] CLIA [id number] [address] [place] [address] CBC W Auto Differential pane l (Bld)on 07-23-2023 Anisocytosis Ql (Bld) Present Normal [facility] Comment on above: Order Comment: Speci men Type: BLOOD SPECIMEN Ordering Facility: [facility] Address: [address] [place] [address] Performed By: #### 5 7021-8 #### [facility] CLIA [id number] [address] [place] [address] LAB CLIA [id number] [address] [place] [address] [place] Basophils (Bld) [#/Vol] 0.00 10*3/uL Normal <0.11 [facility] Comment on above: Order Comment: Speci men Type: BLOOD SPECIMEN Ordering Facility: [facility] Address: [address] [place] [address] Performed By: #### 5 7021-8 #### [facility] CLIA [id number] [address] [place] [address] LAB CLIA [id number] [address] [facility] [place] [address] [place] Basophils/100 WBC (Bld) 0.0 % Normal [facility] Comment on above: Order Comment: Speci men Type: BLOOD SPECIMEN Ordering Facility: [facility] Address: [address] [place] [address] Performed By: #### 5 7021-8 #### [facility] CLIA [id number] [address] [place] [address] LAB CLIA [id number] [address] [place] [address] [place] Differential cell count method Nom (Bld) Manual Normal [facility] Comment on above: Order Comment: Speci men Type: BLOOD SPECIMEN Ordering Facility: [facility] Address: [address] [place] [address] Performed By: #### 5 7021-8 #### [facility] CLIA [id number] [address] [place] [address] LAB CLIA [id number] [address] [place] [address] [place] Eosinophils (Bld) [#/Vol] 0.05 10*3/uL Normal <0.46 [facility] Comment on above: Order Comment: Speci men Type: BLOOD SPECIMEN Ordering Facility: [facility] Address: [address] [place] [address] Performed By: #### 5 7021-8 #### [facility] CLIA [id number] [address] [place] [address] LAB CLIA [id number] [address] [place] [address] [place] Eosinophils/100 WBC (Bld) 0.9 % Normal [facility] Comment on above: Order Comment: Speci men Type: BLOOD SPECIMEN Ordering Facility: [facility] Address: [address] [place] [address] Performed By: #### 5 7021-8 #### [facility] CLIA [id number] [address] [place] [address] LAB CLIA [id number] [address] [place] [address] [place] Erythrocyte distribution width (RBC) [Ratio] 15.8 % High 11.5-15.0 [facility] Comment on above: Order Comment: Speci men Type: BLOOD SPECIMEN Ordering Facility: [facility] Address: [address] [place] [address] Performed By: #### 5 7021-8 #### [facility] CLIA [id number] [address] [place] [address] LAB CLIA [id number] [address] [place] [address] [place] Hematocrit (Bld) [Volume fraction] 31.8 % Low 39.0-51.0 [facility] Comment on above: Order Comment: Speci men Type: BLOOD SPECIMEN Ordering Facility: [facility] Address: [address] [place] [address] Performed By: #### 5 7021-8 #### [facility] CLIA [id number] [address] [place] [address] LAB CLIA [id number] [address] [place] [address] [place] Hemoglobin (Bld) [Mass/Vol] 10.0 g/dL Low 13.0-17.0 [facility] Comment on above: Order Comment: Speci men Type: BLOOD SPECIMEN Ordering Facility: [facility] Address: [address] [place] [address] Performed By: #### 5 7021-8 #### [facility] CLIA [id number] [address] [place] [address] LAB CLIA [id number] [address] [place] [address] [place] Lymphocytes (Bld) [#/Vol] 1.26 10*3/uL Normal 1.00-4.00 [facility] Comment on above: Order Comment: Speci men Type: BLOOD SPECIMEN Ordering Facility: [facility] Address: [address] [place] [address] Performed By: #### 5 7021-8 #### [facility] CLIA [id number] [address] [place] [address] LAB CLIA [id number] [facility] [place] [address] [place] Lymphocytes/100 WBC (Bld) 21.9 % Normal [facility] Comment on above: Order Comment: Speci men Type: BLOOD SPECIMEN Ordering Facility: [facility] Address: [address] [place] [address] Performed By: #### 5 7021-8 #### [facility] CLIA [id number] [address] [place] [address] LAB CLIA [id number] [address] [place] [address] [place] MCH (RBC) [Entitic mass] 33.0 pg Normal 26.0-34.0 [facility] Comment on above: Order Comment: Speci men Type: BLOOD SPECIMEN Ordering Facility: [facility] Address: [address] [place] [address] Performed By: #### 5 7021-8 #### [facility] CLIA [id number] [address] [place] [address] LAB CLIA [id number] [address] [place] [address] [place] MCHC (RBC) [Mass/Vol] 31.4 g/dL Normal 30.5-36.0 [facility] Comment on above: Order Comment: Speci men Type: BLOOD SPECIMEN Ordering Facility: [facility] Address: [address] [place] [address] Performed By: #### 5 7021-8 #### [facility] CLIA [id number] [address] [place] [address] LAB CLIA [id number] [facility] [place] [address] [place] MCV (RBC) [Entitic vol] 105.0 fL High 80.0-100.0 [facility] Comment on above: Order Comment: Speci men Type: BLOOD SPECIMEN Ordering Facility: [facility] Address: [address] [place] [address] Performed By: #### 5 7021-8 #### [facility] CLIA [id number] [address] [place] [address] LAB CLIA [id number] [address] [place] [address] [place] Metamyelocytes/100 WBC (Bld) 0.9 % Normal [facility] Comment on above: Order Comment: Speci men Type: BLOOD SPECIMEN Ordering Facility: [facility] Address: [address] [place] [address] Performed By: #### 5 7021-8 #### [facility] CLIA [id number] [address] [place] [address] LAB CLIA [id number] [address] [place] [address] [place] Monocytes (Bld) [#/Vol] 2.08 10*3/uL High <0.87 [facility] Comment on above: Order Comment: Speci men Type: BLOOD SPECIMEN Ordering Facility: [facility] Address: [address] [place] [address] Performed By: #### 5 7021-8 #### [facility] CLIA [id number] [address] [place] [address] LAB CLIA [id number] [address] [place] [address] [place] Monocytes/100 WBC (Bld) 36.0 % Normal [facility] Comment on above: Order Comment: Speci men Type: BLOOD SPECIMEN Ordering Facility: [facility] Address: [address] [place] [address] Performed By: #### 5 7021-8 #### [facility] CLIA [id number] [address] [place] [address] LAB CLIA [id number] [address] [place] [address] [place] MYELO% 0.9 % Normal [facility] Comment on above: Order Comment: Speci men Type: BLOOD SPECIMEN Ordering Facility: [facility] Address: [address] [place] [address] Performed By: #### 5 7021-8 #### [facility] CLIA [id number] [address] [place] [address] LAB CLIA [id number] [address] [place] [address] [place] Neutrophils (Bld) [#/Vol] 2.27 10*3/uL Normal 1.45-7.50 [facility] Comment on above: Order Comment: Speci men Type: BLOOD SPECIMEN Ordering Facility: [facility] Address: [address] [place] [address] Performed By: #### 5 7021-8 #### [facility] CLIA [id number] [address] [place] [address] LAB CLIA [id number] [address] [place] [address] [place] Neutrophils/100 WBC (Bld) 39.4 % Normal [facility] Comment on above: Order Comment: Speci men Type: BLOOD SPECIMEN Ordering Facility: [facility] Address: [address] [place] [address] Performed By: #### 5 7021-8 #### [facility] CLIA [id number] [address] [place] [address] LAB CLIA [id number] [address] [place] [address] [place] Nucleated RBC (Bld) [#/Vol] 10*3/uL Normal <0.01 [facility] Comment on above: Order Comment: Speci men Type: BLOOD SPECIMEN Ordering Facility: [facility] Address: [address] [place] [address] Performed By: #### 5 7021-8 #### [facility] CLIA [id number] [address] [place] [address] LAB CLIA [id number] [facility] [place] [address] [place] Nucleated RBC/100 WBC (Bld) [Ratio] 0.0 /100 WBC Normal [facility] Comment on above: Order Comment: Speci men Type: BLOOD SPECIMEN Ordering Facility: [facility] Address: [address] [place] [address] Performed By: #### 5 7021-8 #### [facility] CLIA [id number] [address] [place] [address] LAB CLIA [id number] [address] [place] [address] [place] Ovalocytes LM Ql (Bld) Few Normal [facility] Comment on above: Order Comment: Speci men Type: BLOOD SPECIMEN Ordering Facility: [facility] Address: [address] [place] [address] Performed By: #### 5 7021-8 #### [facility] CLIA [id number] [address] [place] [address] LAB CLIA [id number] [address] [place] [address] [place] Platelet mean volume (Bld) [Entitic vol] 10.1 fL Normal 9.0-12.7 [facility] Comment on above: Order Comment: Speci men Type: BLOOD SPECIMEN Ordering Facility: [facility] Address: [address] [place] [address] Performed By: #### 5 7021-8 #### [facility] CLIA [id number] [address] [place] [address] LAB CLIA [id number] [address] [place] [address] [place] Platelets (Bld) [#/Vol] 179 10*3/uL Normal 150-400 [facility] Comment on above: Order Comment: Speci men Type: BLOOD SPECIMEN Ordering Facility: [facility] Address: [address] [place] [address] Performed By: #### 5 7021-8 #### [facility] CLIA [id number] [address] [place] [address] LAB CLIA [id number] [address] [place] [address] [place] Platelets Estimate (Bld) [#/Vol] Adequate Normal [facility] Comment on above: Order Comment: Speci men Type: BLOOD SPECIMEN Ordering Facility: [facility] Address: [address] [place] [address] Performed By: #### 5 7021-8 #### [facility] CLIA [id number] [address] [place] [address] LAB CLIA [id number] [address] [place] [address] [place] Polychromasia LM Ql (Bld) Slight Normal [facility] Comment on above: Order Comment: Speci men Type: BLOOD SPECIMEN Ordering Facility: [facility] Address: [address] [place] [address] Performed By: #### 5 7021-8 #### [facility] CLIA [id number] [address] [place] [address] LAB CLIA [id number] [address] [place] [address] [place] RBC (Bld) [#/Vol] 3.03 10*6/uL Low 4.20-6.00 [facility] Comment on above: Order Comment: Speci men Type: BLOOD SPECIMEN Ordering Facility: [facility] Address: [address] [place] [address] Performed By: #### 5 7021-8 #### [facility] CLIA [id number] [address] [place] [address] LAB CLIA [id number] [address] [place] [address] [place] RED CELL MORPH Reviewed: see result s of individual morphologies Normal [facility] Comment on above: Order Comment: Speci men Type: BLOOD SPECIMEN Ordering Facility: [facility] Address: [address] [place] [address] Performed By: #### 5 7021-8 #### [facility] CLIA [id number] [address] [place] [address] LAB CLIA [id number] [address] [place] [address] [place] WBC (Bld) [#/Vol] 5.77 10*3/uL Normal 3.70-11.00 [facility] Comment on above: Order Comment: Speci men Type: BLOOD SPECIMEN Ordering Facility: [facility] Address: [address] [place] [address] Performed By: #### 5 7021-8 #### [facility] CLIA [id number] [address] [place] [address] LAB CLIA [id number] [address] [place] [address] [place] WBC Left Shift Ql (Bld) Present Normal [facility] Comment on above: Order Comment: Speci men Type: BLOOD SPECIMEN Ordering Facility: [facility] Address: [address] [place] [address] Performed By: #### 5 7021-8 #### [facility] CLIA [id number] [address] [place] [address] LAB CLIA [id number] [address] [place] [address] [place] IMMUNOFIXATION SCREEN, SERUM on 07-23-2023 INTERPRETATION (MPA) Atypical restricted bands are present in the IgG and lambda regions. Consistent with IgG lambda monoclonal gammopathy. Normal [facility] Comment on above: Order Comment: Speci men Type: BLOOD SPECIMEN Ordering Facility: [facility] Address: [address] [place] [address] Performed By: #### I FESC #### [facility] CLIA [id number] [address] [place] MPA RESULT M protein is present. Abnormal No M p rotein is identified. [facility] Comment on above: Order Comment: Speci men Type: BLOOD SPECIMEN Ordering Facility: [facility] Address: [address] [place] [address] Performed By: #### I FES #### [facility] CLIA [id number] [address] [place] [address] [place] STAFF REVIEW ([facility]) Reviewed by Fran Byod MD, Ph.D ([id number]) Normal [facility] Comment on above: Order Comment: Speci men Type: BLOOD SPECIMEN Ordering Facility: [facility] Address: [address] [place] [address] Performed By: #### I FES #### [facility] CLIA [id number] [address] [place] [address] [place] IMMUNOGLOBULINS GAMon 2022 IgA [Mass/Vol] 72 mg/dL Normal 70-400 [facility] Comment on above: Order Comment: Speci men Type: BLOOD SPECIMEN Ordering Facility: [facility] Address: [address] [place] [address] Performed By: #### S ERIMM #### [facility] CLIA [id number] [address] [place] [address] [place] IgG [Mass/Vol] 777 mg/dL Normal 700-1600 [facility] Comment on above: Order Comment: Speci men Type: BLOOD SPECIMEN Ordering Facility: [facility] Address: [address] [place] [address] Performed By: #### S ERIMM #### [facility] CLIA [id number] [address] [place] [address] [place] IgM [Mass/Vol] 64 mg/dL Normal 40-230 [facility] Comment on above: Order Comment: Speci men Type: BLOOD SPECIMEN Ordering Facility: [facility] Address: [address] [place] [address] Performed By: #### S ERIMM #### [facility] CLIA [id number] [facility] [place] [address] [place] KAPPA/ARDON,FREE,SERon 2022 Immunoglobulin light chains.kappa.free (S) [Mass/Vol] 29.6 mg/L High 3.3-19.4 [facility] Comment on above: Order Comment: Speci men Type: BLOOD SPECIMEN Ordering Facility: [facility] Address: [address] [place] [address] Result Comment: Rare ly, increased serum free light chains levels may not be detected or accurately quantified due to prozone phenomenon or in high viscosity samples using this immunoturbidimetric assay. Correlation with other laboratory results and clinical findings is recommended. The Solis Free Light Chain was performed using the Binding Site Optilite immunoturbidimetric method. Result obtained with different assay methods or kits cannot be used interchangeably. Performed By: #### K LFRS #### [facility] CLIA [id number] [address] [place] [address] [place] Immunoglobulin light chains.kappa/Immunog lobulin light chains.lambda (S) [Mass ratio] 1.86 High 0.26-1.65 [facility] Comment on above: Order Comment: Speci men Type: BLOOD SPECIMEN Ordering Facility: [facility] Address: [address] [place] [address] Performed By: #### K LFRS #### [facility] CLIA [id number] [address] [place] [address] [place] Immunoglobulin light chains.lambda.free [Mass/Vol] 15.9 mg/L Normal 5.7-26.3 [facility] Comment on above: Order Comment: Speci men Type: BLOOD SPECIMEN Ordering Facility: [facility] Address: [address] [place] [address] Result Comment: Rare ly, increased serum free light chains levels may not be detected or accurately quantified due to prozone phenomenon or in high viscosity samples using this immunoturbidimetric assay. Correlation with other laboratory results and clinical findings is recommended. The Lambda Free Light Chain was performed using the Binding Site Optilite immunoturbidimetric method. Result obtained with different assay methods or kits cannot be used interchangeably. Performed By: #### K LFRS #### [facility] CLIA [id number] [address] [place] [address] [place] PROTEIN ELECTROPHORESIS SERU M WITH CARSON (P)on 07-23-2023 Albumin [Mass/Vol] 2.67 g/dL Low 3.43-5.41 [facility] Comment on above: Order Comment: Speci men Type: BLOOD SPECIMEN Ordering Facility: [facility] Address: [address] [place] [address] Performed By: #### L [id number] #### [facility] CLIA [id number] [address] [place] [address] [place] Alpha 1 globulin Elph [Mass/Vol] 0.54 g/dL High 0.18-0.43 [facility] Comment on above: Order Comment: Speci men Type: BLOOD SPECIMEN Ordering Facility: [facility] Address: [address] [place] [address] Performed By: #### L [id number] #### [facility] CLIA [id number] [address] [place] [address] [place] Alpha 2 globulin Elph [Mass/Vol] 0.94 g/dL Normal 0.42-0.98 [facility] Comment on above: Order Comment: Speci men Type: BLOOD SPECIMEN Ordering Facility: [facility] Address: [address] [place] [address] Performed By: #### L [id number] #### [facility] CLIA [id number] [address] [place] [address] [place] Beta globulin Elph [Mass/Vol] 0.65 g/dL Normal 0.61-1.17 [facility] Comment on above: Order Comment: Speci men Type: BLOOD SPECIMEN Ordering Facility: [facility] Address: [address] [place] [address] Performed By: #### L [id number] #### [facility] CLIA [id number] [address] [place] [address] [place] COMMENT (SERUM PROT ELECTRO) Monoclonal Protein analysis (immunofixation) is not indicated. Normal [facility] Comment on above: Order Comment: Speci men Type: BLOOD SPECIMEN Ordering Facility: [facility] Address: [address] [place] [address] Performed By: #### L [id number] #### [facility] CLIA [id number] [address] [place] [address] [place] Gamma globulin Elph [Mass/Vol] 0.71 g/dL Normal 0.53-1.51 [facility] Comment on above: Order Comment: Speci men Type: BLOOD SPECIMEN Ordering Facility: [facility] Address: [address] [place] [address] Performed By: #### L [id number] #### [facility] CLIA [id number] [address] [place] [address] [place] INTERPRETATION COMMENT FOR PROTEIN ELECTROPHORESIS See separate immunofixation report for characterization of monoclonal gammopathy. Normal [facility] Comment on above: Order Comment: Speci men Type: BLOOD SPECIMEN Ordering Facility: [facility] Address: [address] [place] [address] Performed By: #### L [id number] #### [facility] CLIA [id number] [address] [place] [address] [place] M-PROTEIN LOCATION Beta Fraction [facility]: Order Comment: Speci men Type: BLOOD SPECIMEN Ordering Facility: [facility] Address: [address] [place] [address] Performed By: #### L [id number] #### [facility] CLIA [id number] [address] [place] [address] [place] Protein Fractions [Interp] An M protein is identified on protein electrophoresis. Abnormal No definitive M protein is identified on protein electrophore sis. [facility] Comment on above: Order Comment: Speci men Type: BLOOD SPECIMEN Ordering Facility: [facility] Address: [address] [place] [address] Performed By: #### L [id number] #### [facility] CLIA [id number] [address] [place] [address] [place] Protein.monoclonal Elph [Mass/Vol] 0.20 g/dL High <=0.00 [facility] Comment on above: Order Comment: Speci men Type: BLOOD SPECIMEN Ordering Facility: [facility] Address: [address] [place] [address] Performed By: #### L [id number] #### [facility] CLIA [id number] [address] [place] [address] [place] SPE STAFF REVIEW Reviewed by Fran Boyd MD, Ph.D ([id number]) Normal [facility] Comment on above: Order Comment: Speci men Type: BLOOD SPECIMEN Ordering Facility: [facility] Address: [address] [place] [address] Performed By: #### L [id number] #### [facility] CLIA [id number] [address] [place] [address] [place] Prot SerPl-mCncon 07-23-2023 Protein [Mass/Vol] 5.5 g/dL Low 6.3-8.0 [facility] Comment on above: Order Comment: Speci men Type: BLOOD SPECIMEN Ordering Facility: [facility] Address: [address] [place] [address] Performed By: #### 2 885-2 #### [facility] CLIA [id number] [address] [place] [address] [place] Immunization Recordson 07-06 Immunization Records [id number]#1.00TIFF [facility] RAD - CT Reporton 06-18-2023 RAD - CT Report [id number]#1.00TIFF [facility] Reminderson 06-09-2023 Reminders - From: Solange Broussard To: EU - Recalls Mckeon; Sent: 06/09/2023 16:03:24 EDT Show up: 01/16/2024 16:03:00 EDT Subject: renal US Due Date/Time: 02/01/2024 16:03:00 EDT Reminder/Recall Patient needs renal US prior to February 2024 appt [facility] Ambulatory Visit Summaryon 1 Ambulatory Visit Summary CHIKI JUAREZ Issa :1945 Visit Date:05/28/2023 Ambulatory Visit Instructions Your Diagnosis Severe obesity Chronic diastolic heart failure Pulmonary hypertension BMI 35.0-35.9,adult Class 1 obesity due to excess calories in adult Your Care Team Attending Physician - Pito Patterson MD Primary Care Physician - Pito Patterson MD This Is Your Medications [place] [facility] [place] (Nebulizer accessory set) albuterol (albuterol 0.083% Inh Kasie 3 mL) albuterol (albuterol 0.083% Inh Kasie 3 mL) amoxicillin (amoxicillin 500 mg Cap) aspirin (aspirin 81 mg Oral EC Tab) budesonide (budesonide 0.5 mg/2 mL Inh Susp) calcium-vitamin D cyanocobalamin (Vitamin B12) furosemide (furosemide 40 mg Tab) gabapentin (gabapentin 300 mg Cap) ipratropium nasal (ipratropium Nasal 0.06% [place]) levothyroxine (levothyroxine 100 mcg (0.1 mg) Tab) metoprolol (metoprolol 25 mg ER Tab) potassium chloride (potassium chloride 10 mEq ER Tab) salmeterol (Serevent Diskus 50 mcg inhalation powder) tiotropium (Spiriva 18 mcg Cap) Procedures Performed Cardiac pacemaker (2019), Transrectal biopsy of prostate using ultrasound (US) guidance (03/10/2019), Cystourethroscopy (03/12/2010), Lymphadenectomy of sentinel lymph node (08/17/2006). Discharge Vitals Temperature (Oral) 36.4 ?C Heart Rate (Peripheral) 82 Respiratory Rate 18 Blood Pressure 128/76 Height 168 cm Height 66 in Weight 98.9 kg Weight 217.58 lb BMI 35.04 What to do next Scheduled Follow-Up Appointments Thursday 1:20 PM EST With: Pito Patterson MD Where: [facility] Invalid Interpretation Code [address] [place] [address]- \.br \ Thursday 11:15 AM EDT \.br\ With: Oni MCKEON MD\.br\ Where: [facility] Ambulatory Visit Summary ALAINA CHIKI Parsons :1945 Visit Date:05/28/2023 Ambulatory Visit Instructions Your Diagnosis Severe obesity Chronic diastolic heart failure Pulmonary hypertension BMI 35.0-35.9,adult Class 1 obesity due to excess calories in adult Your Care Team Attending Physician - Pito Patterson MD Primary Care Physician - Pito Patterson MD This Is Your Medications [place] [facility] [place] (Nebulizer accessory set) albuterol (albuterol 0.083% Inh Kasie 3 mL) albuterol (albuterol 0.083% Inh Kasie 3 mL) amoxicillin (amoxicillin 500 mg Cap) aspirin (aspirin 81 mg Oral EC Tab) budesonide (budesonide 0.5 mg/2 mL Inh Susp) calcium-vitamin D cyanocobalamin (Vitamin B12) furosemide (furosemide 40 mg Tab) gabapentin (gabapentin 300 mg Cap) ipratropium nasal (ipratropium Nasal 0.06% [place]) levothyroxine (levothyroxine 100 mcg (0.1 mg) Tab) metoprolol (metoprolol 25 mg ER Tab) potassium chloride (potassium chloride 10 mEq ER Tab) salmeterol (Serevent Diskus 50 mcg inhalation powder) tiotropium (Spiriva 18 mcg Cap) Procedures Performed Cardiac pacemaker (2019), Transrectal biopsy of prostate using ultrasound (US) guidance (03/10/2019), Cystourethroscopy (03/12/2010), Lymphadenectomy of sentinel lymph node (08/17/2006). Discharge Vitals Temperature (Oral) 36.4 ?C Heart Rate (Peripheral) 82 Respiratory Rate 18 Blood Pressure 128/76 Height 168 cm Height 66 in Weight 98.9 kg Weight 217.58 lb BMI 35.04 What to do next Scheduled Follow-Up Appointments Thursday 1:20 PM EST With: Navarro VENTURA, Pito Davidson Where: [facility] Invalid Interpretation Code [address] [place] [address]- \.br \ Thursday 11:15 AM EDT \.br\ With: Oni MCKEON MD\.br\ Where: [facility] Family Medicine Office/Clini c Noteon 05-28-2023 Family Medicine Office/Clinic Note HPI Staff Chiki is a 78 year old male presenting to discuss getting a motorized wheelchair or scooter Says he cannot breathe to walk, can't go to football games and has grandchildren in sports or the fair or shopping, if the stores have motorized carts he's okay When goes to see piping manager it's about a 1/4 mile to walk once you park and he can't do it. Even has to stop and rest walking to and from his mailbox and it's just not getting any better flu: UTD History of Present Illness Here to discuss a mobility. Wants a motorized wheelchair. States he cannot tolerate walking that far. States he cannot use O2 as its too heavy for him. He is looking for help. Review of Systems PHQ Score Initial Depression Screen Score: 0 Physical Exam Vitals & Measurements T: 36.4 ?C(Oral) HR: 82(Peripheral) RR: 18 BP: 128/76 SpO2: 90% HT: 66 in HT: 168 cm WT: 98.9 kg WT: 217.58 lb BMI: 35.04 General: alert, no acute distress ENMT: oral mucosa moist, Cardiovascular: regular rate and rhythm, normal peripheral perfusion Respiratory: Lungs CTA, respirations non labored, Diminished Extremities: no deformity, no trauma Neurological: oriented x 4, LOC appropriate for age, CN II-XII intact, motor strength equal & normal bilaterally, speech normal Abdomen: Soft, Nontender, Non-distended, + BS Assessment/Plan Pt will need to see stride right to see what is needed for his insurance. Pt will need to see me after starting with stride right. 1. Severe obesity (E66.01: Morbid (severe) obesity due to excess calories) - Contributing to not able to ambulate well. - Diet and exercise advised. Ordered: Body Mass Index (BMI) documented 3008F Current tobacco non-user 1036F Depression Screening Negative 3352F Influenza immunization administered or previously received 4274F Most recent diastolic blood pressure <80 mm Hg 3078F Patient screen for fall risk: no falls in last year or 1 fall with no injury in last year 1101F Systolic BP <130 mm Hg (Most Recent) 3074F 2. Chronic diastolic heart failure (I50.32: Chronic diastolic (congestive) heart failure) - NO HF seen today. Ordered: Body Mass Index (BMI) documented 3008F Current tobacco non-user 1036F Depression Screening Negative 3352F Influenza immunization administered or previously received 4274F Most recent diastolic blood pressure <80 mm Hg 3078F Patient screen for fall risk: no falls in last year or 1 fall with no injury in last year 1101F Systolic BP <130 mm Hg (Most Recent) 3074F 3. Pulmonary hypertension (I27.20: Pulmonary hypertension, unspecified) - Seeing Pulm - Recommend them discussing this mobility issue with Pulm as well Ordered: Body Mass Index (BMI) documented 3008F Current tobacco non-user 1036F Depression Screening Negative 3352F Influenza immunization administered or previously received 4274F Most recent diastolic blood pressure <80 mm Hg 3078F Patient screen for fall risk: no falls in last year or 1 fall with no injury in last year 1101F Systolic BP <130 mm Hg (Most Recent) 3074F 4. BMI 35.0-35.9,adult (Z68.35: Body mass index [BMI] 35.0-35.9, adult) - BMI education given Ordered: Body Mass Index (BMI) documented 3008F Current tobacco non-user 1036F Depression Screening Negative 3352F Influenza immunization administered or previously received 4274F Most recent diastolic blood pressure <80 mm Hg 3078F Patient screen for fall risk: no falls in last year or 1 fall with no injury in last year 1101F Systolic BP <130 mm Hg (Most Recent) 3074F 5. Class 1 obesity due to excess calories in adult (E66.09: Other obesity due to excess calories) - Diet and exercise advised. Ordered: Body Mass Index (BMI) documented 3008F Current tobacco non-user 1036F Depression Screening Negative 3352F Influenza immunization administered or previously received 4274F Most recent diastolic blood pressure <80 mm Hg 3078F Patient screen for fall risk: no falls in last year or 1 fall with no injury in last year 1101F Systolic BP <130 mm Hg (Most Recent) 3074F 6. Compression fracture of thoracic vertebra with routine healing, unspecified thoracic vertebral level, subsequent encounter (S22.000D: Wedge compression fracture of unspecified thoracic vertebra, subsequent encounter for fracture with routine healing) Follow-up No qualifying data available Patient Education BMI for Adults Problem List/Past Medical History Ongoing B12 deficiency BPH with urinary obstruction Chronic diastolic heart failure Compression fracture of thoracic vertebra with routine healing, unspecified thoracic vertebral level, subsequent encounter COPD with asthma Essential tremor Former smoker Hearing loss History of B-cell lymphoma History of prostate cancer Hx of cerebrovascular disorder Hypothyroid Microscopic hematuria Nasal congestion Neuropathy, arm Obesity due to excess calories Prostate nodule Pulmonary hypertension Severe o (more content not included)... Normal [facility] Comment on above: Result Comment: Elec tronically Signed By: Navarro VENTURA, Pito Davidson\.br\Date and Time Signed: 05/28/23 16:46 EDT Patient Educationon 05-28-20 Patient Education Nutrition BMI for Adults What is BMI? Body mass index (BMI) is a number that is calculated from a person's weight and height. BMI can help estimate how much of a person's weight is composed of fat. BMI does not measure body fat directly. Rather, it is an alternative to procedures that directly measure body fat, which can be difficult and expensive. BMI can help identify people who may be at higher risk for certain medical problems. What are BMI measurements used for? BMI is used as a screening tool to identify possible weight problems. It helps determine whether a person is obese, overweight, a healthy weight, or underweight. BMI is useful for: ? Identifying a weight problem that may be related to a medical condition or may increase the risk for medical problems. ? Promoting changes, such as changes in diet and exercise, to help reach a healthy weight. BMI screening can be repeated to see if these changes are working. How is BMI calculated? BMI involves measuring your weight in relation to your height. Both height and weight are measured, and the BMI is calculated from those numbers. This can be done either in [place] ([place] or metric measurements. Note that charts and online BMI calculators are available to help you find your BMI quickly and easily without having to do these calculations yourself. To calculate your BMI in [place] ([place] measurements: 1. Measure your weight in pounds (lb). 2. Multiply the number of pounds by 703. ? For example, for a person who weighs 180 lb, multiply that number by 703, which equals 126,540. 3. Measure your height in inches. Then multiply that number by itself to get a measurement called inches squared. ? For example, for a person who is 70 inches tall, the inches squared measurement is 70 inches x 70 inches, which equals 4,900 inches squared. 4. Divide the total from step 2 (number of lb x 703) by the total from step 3 (inches squared): 126,540 ? 4,900 = 25.8. This is your BMI. To calculate your BMI in metric measurements: 1. Measure your weight in kilograms (kg). 2. Measure your height in meters (m). Then multiply that number by itself to get a measurement called meters squared. ? For example, for a person who is 1.75 m tall, the meters squared measurement is 1.75 m x 1.75 m, which is equal to 3.1 meters squared. 3. Divide the number of kilograms (your weight) by the meters squared number. In this example: 70 ? 3.1 = 22.6. This is your BMI. What do the results mean? BMI charts are used to identify whether you are underweight, normal weight, overweight, or obese. The following guidelines will be used: ? Underweight: BMI less than 18.5. ? Normal weight: BMI between 18.5 and 24.9. ? Overweight: BMI between 25 and 29.9. ? Obese: BMI of 30 or above. Keep these notes in mind: ? Weight includes both fat and muscle, so someone with a muscular build, such as an athlete, may have a BMI that is higher than 24.9. In cases like these, BMI is not an accurate measure of body fat. ? To determine if excess body fat is the cause of a BMI of 25 or higher, further assessments may need to be done by a health care provider. ? BMI is usually interpreted in the same way for men and women. Where to find more information For more information about BMI, including tools to quickly calculate your BMI, go to these websites: ? Centers for Disease Control and Prevention: www.cdc.gov ? [place] [employer] Association: www.heart.org ? National Heart, Lung, and Blood [place]: www.nhlbi.nih.gov Summary ? Body mass index (BMI) is a number that is calculated from a person's weight and height. ? BMI may help estimate how much of a person's weight is composed of fat. BMI can help identify those who may be at higher risk for certain medical problems. ? BMI can be measured using [place]ian measurements or metric measurements. ? BMI charts are used to identify whether you are underweight, normal weight, overweight, or obese. This information is not intended to replace advice given to you by your health care provider. Make sure you discuss any questions you have with your health care provider. Document Revised: 04/25/2020 Document Reviewed: 03/02/2020 [employer] Patient Education ? 2022 [place]. [facility] Consultation Noteon 05-25-20 23 Consultation Note [id number]#1.00TIFF [facility] Office Visiton 05-21-2023 Follow-up visit [id number] Tremaine Juarez 1945 M Date Provider Department Center 05/21/2023 [facility] Family History Problem Relation Age of Onset Stroke Father Family Status - Relation Status Age at Father Level of Service:18720 [place] OFFICE/OUTPATIENT ESTABLISHED LOW MDM 20-29 MIN Reason for Visit and Comments: Congestive Heart Failure [127] NSVT [Other] - AV block s/p PPM [Other] Normal [facility] Auth for Release of Medical Recordson 05-12-2023 Auth for Release of Medical Records [id number]#1.00CD:12 7 Normal [facility] Consent for Flu Vaccineon Consent for Flu Vaccine [id number]#1.00CD:127 Normal [facility] Ambulatory Visit Summaryon 0 05-11-2023 Ambulatory Visit Summary CHIKI JUAREZ :1945 Visit Date:05/11/2023 Ambulatory Visit Instructions Your Diagnosis 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 B12 deficiency Hypothyroid Former smoker Neuropathy, arm BMI 35.0-35.9,adult Class 1 obesity due to excess calories in adult Encounter for immunization Your Care Team Attending Physician - Pito Patterson MD Primary Care Physician - Pito Patterson MD This Is Your Medications List amoxicillin (amoxicillin 500 mg Cap) gabapentin (gabapentin 300 mg Cap) Contact prescribing physician if questions or concerns Misc Prescription (Nebulizer accessory set) albuterol (albuterol 0.083% Inh Kasie 3 mL) albuterol (albuterol 0.083% Inh Kasie 3 mL) aspirin (aspirin 81 mg Oral EC Tab) budesonide (budesonide 0.5 mg/2 mL Inh Susp) calcium-vitamin D cyanocobalamin (Vitamin B12) furosemide (furosemide 40 mg Tab) ipratropium nasal (ipratropium Nasal 0.06% [place]) levothyroxine (levothyroxine 100 mcg (0.1 mg) Tab) metoprolol (metoprolol 25 mg ER Tab) potassium chloride (potassium chloride 10 mEq ER Tab) salmeterol (Serevent Diskus 50 mcg inhalation powder) tiotropium (Spiriva 18 mcg Cap) Procedures Performed Cardiac pacemaker (2019), Transrectal biopsy of prostate using ultrasound (US) guidance (03/10/2019), Cystourethroscopy (03/12/2010), Lymphadenectomy of sentinel lymph node (08/17/2006). Discharge Vitals Temperature (Temporal Artery) 36.7 ?C Heart Rate (Peripheral) 84 Respiratory Rate 24 Blood Pressure 100/52 Height 168 cm Height 66 in Weight 99.5 kg Weight 218.9 lb BMI 35.25 What to do next Scheduled Follow-Up Appointments Thursday 1:20 PM EST With: Navarro VENTURA, Pito Davidson Where: [facility] Invalid Interpretation Code [address] [place] [address]- \.br \ Thursday 11:15 AM EDT \.br\ With: MIKE VENTURA, Oni Sewell\.br\ Where: [facility] Auth for Release of Medical Recordson 05-11-2023 Auth for Release of Medical Records [id number]#1.00CD:12 7 Normal [facility] Family Medicine Office/Clini c Noteon 05-11-2023 Family Medicine Office/Clinic Note HPI Staff Kwaku is a 78 year old male presenting for antibiotics for sinusese Acute: has the start of a sinus infection and Dr Sherwood always put him on an antb until spring, he would rotate every other month with cephalexin 500 and amoxil 500 _Respiratory C/O: Duration: a month but not real bad yet Body aches: yes which is normal for him from his back issues Chest congestion: no Chills: no Cough: yes occasionally Ear complaints: has tinnitus always has a sound in his ears, left ear, hearing is bad will be seeing ENT in Jun for this Eye itching/watering: yes when he mows or works outside Fever: no Headache: yes from his back and neck not from sickness Nasal congestion: yes Nasal discharge: yes Poor appetite: no Reduced activity: yes due to his breathing Sinus pain/pressure: no Sneezing: no Sputum production: yes clear and not as bad as it was Wheezing: yes Ill contacts: no Remedies tried: some benadryl after mowing as eyes get itchy and watery _ flu: will take today if clears him with his illness questions/concerns: none he didn't take the cipro you rxed him at his last visit due to the insert and contraindications History of Present Illness Here for follow up. Breathing is a little worse. Needs pulm visit end of Sep. Pt needs to have Pulm take care of his meds Has a pacer for bradycardia No other issues. Gabapentin is working for his pain. Review of Systems PHQ Score Initial Depression Screen Score: 0 Physical Exam Vitals & Measurements T: 36.7 ?C(Temporal Artery) HR: 84(Peripheral) RR: 24 BP: 100/52 SpO2: 92% HT: 66 in HT: 168 cm WT: 99.5 kg WT: 218.9 lb BMI: 35.25 General: alert, no acute distress ENMT: oral mucosa moist, Cardiovascular: regular rate and rhythm, normal peripheral perfusion Respiratory: Lungs CTA, respirations non labored Extremities: no deformity, no trauma Neurological: oriented x 4, LOC appropriate for age, CN II-XII intact, motor strength equal & normal bilaterally, speech normal Abdomen: Soft, Nontender, Non-distended, + BS Assessment/Plan Total time spent preparing for the encounter, evaluating and assessing the patient, documenting the visit, and ordering appropriate follow-up work was 40 minutes. 1. 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 BPH with urinary obstruction (N40.1: Benign prostatic hyperplasia with lower urinary tract symptoms) - No issues today. - Follow up with urology 3. B12 deficiency (E53.8: Deficiency of other specified B group vitamins) - Will check at next lab drawl 4. Hypothyroid (E03.9: Hypothyroidism, unspecified) - Will order labs. - Follow up at next visit Ordered: gabapentin, 300 mg = 1 cap(s), Oral, Once a day (at bedtime), # 90 cap(s), Refills(s) 1, Pharmacy: [facility]/pharmacy #[id number], 168, cm, 05/11/23 13:29:00 EDT, Height/Length Dosing, 99.5, kg, 05/11/23 13:29:00 EDT, Weight Dosing 5. Former smoker (Z87.891: Personal history of nicotine dependence) - Please continue not to smoke 6. 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/pharmacy #[id number], 168, cm, 05/11/23 13:29:00 EDT, Height/Length Dosing, 99.5, kg, 05/11/23 13:29:00 EDT, Weight Dosing Orders: amoxicillin, 500 mg = 1 cap(s), Oral, Daily, TAKE 1 CAPSULE BY MOUTH EVERY DAY, # 30 cap(s), Refills(s) 0, Pharmacy: [facility]/pharmacy #[id number], 168, cm, 05/11/23 13:29:00 EDT, Height/Length Dosing, 99.5, kg, 05/11/23 13:29:00 EDT, Weight Dosing - Follow-up No qualifying data available Patient Education Hypothyroidism Chronic Obstructive Pulmonary Disease Problem List/Past Medical History Ongoing B12 deficiency BPH with urinary obstruction Compression fracture of thoracic vertebra with routine healing, unspecified thoracic vertebral level, subsequent encounter COPD with asthma Essential tremor Former smoker Hearing loss History of B-cell lymphoma History of prostate cancer Hx of cerebrovascular disorder Hypothyroid Microscopic hematuria Nasal congestion Neuropathy, arm Obesity due to excess calories Prostate nodule Ventral hernia Historical No qualifying data Procedure/Surgical History Cardiac pacemaker (2019), Transrectal biopsy of prostate using ultrasound (US) guidance (03/10/2019), Cystourethroscopy (03/12/2010), Lymphadenectomy of sentinel lymph node (08/17/2006). Medications albuterol 0.083% Inh Kasie 3 mL, 2.5 mg= 3 mL, NEB, q4hr, 3 refills albuterol 0.083% Inh Kasie 3 mL, See Instructions amoxicillin 500 mg Cap, 500 mg= 1 cap(s), Oral, Daily aspirin 81 mg Oral EC Tab, 81 mg= 1 tab(s), Oral, Daily budesonide 0.5 mg/2 mL Inh Susp, 0.5 mg= 2 mL, NEB (more content not included)... Normal [facility] Comment on above: Result Comment: Elec tronically Signed By: Navarro VENTURA, Pito Underwood.br\Date and Time Signed: 05/11/23 14:05 EDT Patient Educationon 05-11-20 Patient Education Endocrinology Hypothyroidism Hypothyroidism is when the thyroid gland does not make enough of certain hormones. This is called an underactive thyroid. The thyroid gland is a small gland located in the lower front part of the neck, just in front of the windpipe (trachea). This gland makes hormones that help control how the body uses food for energy (metabolism) as well as how the heart and brain function. These hormones also play a role in keeping your bones strong. When the thyroid is underactive, it produces too little of the hormones thyroxine (T4) and triiodothyronine (T3). What are the causes? This condition may be caused by: ? Alisha's disease. This is a disease in which the body's disease-fighting system (immune system) attacks the thyroid gland. This is the most common cause. ? Viral infections. ? . ? Certain medicines. ? defects. ? Problems with a gland in the center of the brain (pituitary gland). ? Lack of enough iodine in the diet. Other causes may include: ? Past radiation treatments to the head or neck for cancer. ? Past treatment with radioactive iodine. ? Past exposure to radiation in the environment. ? Past surgical removal of part or all of the thyroid. What increases the risk? You are more likely to develop this condition if: ? You are female. ? You have a family history of thyroid conditions. ? You use a medicine called lithium. ? You take medicines that affect the immune system (immunosuppressants). What are the signs or symptoms? Common symptoms of this condition include: ? Not being able to tolerate cold. ? Feeling as though you have no energy (lethargy). ? Lack of appetite. ? Constipation. ? Sadness or depression. ? Weight gain that is not explained by a change in diet or exercise habits. ? Menstrual irregularity. ? Dry skin, coarse hair, or brittle nails. Other symptoms may include: ? Muscle pain. ? Slowing of thought processes. ? Poor memory. How is this diagnosed? This condition may be diagnosed based on: ? Your symptoms, your medical history, and a physical exam. ? Blood tests. You may also have imaging tests, such as an ultrasound or MRI. How is this treated? This condition is treated with medicine that replaces the thyroid hormones that your body does not make. After you begin treatment, it may take several weeks for symptoms to go away. Follow these instructions at home: ? Take dcuo-cjv-ressqwy and prescription medicines only as told by your health care provider. ? If you start taking any new medicines, tell your health care provider. ? Keep all follow-up visits as told by your health care provider. This is important. ? As your condition improves, your dosage of thyroid hormone medicine may change. ? You will need to have blood tests regularly so that your health care provider can monitor your condition. Contact a health care provider if: ? Your symptoms do not get better with treatment. ? You are taking thyroid hormone replacement medicine and you: ? Sweat a lot. ? Have tremors. ? Feel anxious. ? Lose weight rapidly. ? Cannot tolerate heat. ? Have emotional swings. ? Have diarrhea. ? Feel weak. Get help right away if: ? You have chest pain. ? You have an irregular heartbeat. ? You have a rapid heartbeat. ? You have difficulty breathing. These symptoms may be an emergency. Get help right away. Call 911. ? Do not wait to see if the symptoms will go away. ? Do not drive yourself to the hospital. Summary ? Hypothyroidism is when the thyroid gland does not make enough of certain hormones (it is underactive). ? When the thyroid is underactive, it produces too little of the hormones thyroxine (T4) and triiodothyronine (T3). ? The most common cause is Alisha's disease, a disease in which the body's disease-fighting system (immune system) attacks the thyroid gland. The condition can also be caused by viral infections, medicine, , or past radiation treatment to the head or neck. ? Symptoms may include weight gain, dry skin, constipation, feeling as though you do not have energy, and not being able to tolerate cold. ? This condition is treated with medicine to replace the thyroid hormones that your body does not make. This information is not intended to replace advice given to you by your health care provider. Make sure you discuss any questions you have with your health care provider. Document Revised: 08/05/2022 Document Reviewed: 08/05/2022 [employer] Patient Education ? 2022 [place]. Pulmonary Medicine Chronic Obstructive Pulmonary Disease Chronic obstructive pulmonary disease (COPD) is a long-term (chronic) condition that affects the lungs. COPD is a general term that can be used to describe many different lung problems that cause lung inflammation and limit airflow, including chronic bronchitis and emphysema. If you h (more content not included)... Normal [facility] Physician Referralon 023 Physician Referral [id number]#1.00CD:1 27 [facility] RAD - CT Reporton 04-03-2023 RAD - CT Report [id number]#1.00CD:12 7 [facility] RAD - CT Report [id number]#1.00CD:12 7 [facility] Consent for Procedure/Surger yon 03-31-2023 Consent for Procedure/Surgery [id number]#1.00CD:1 27 [facility] Consent for Treatmenton 03-17 Consent for Treatment [id number]#1.00CD:12 7 [facility] IntraOperative Documentson 0 03-31-2023 IntraOperative Documents [id number]#1.00CD:1 27 [facility] Main OR Intraoperative Recor don 03-31-2023 Main OR Intraoperative Record IntraOp Document Type FTURO Summary Primary Physician: Oni MCKEON MD Finalized Date/Time: 03/31/23 11:56:20 Pt. Name: CHIKI JUAREZ/Sex: 1945 Male Med Rec #: [id number] Physician: Oni MCKEON MD Financial #: [id number] Pt. Type: O Room/Bed: / Admit/Disch: 03/31/23 10:36:36 - Institution: Case Times FTURO Entry 1 Patient Times In Room 03/31/23 11:52:00 Out Room 03/31/23 12:00:00 Procedure Times Start 03/31/23 11:53:00 Stop 03/31/23 11:56:00 Anesthesia Times Last Modified By: Niki Bradford RN 03/31/23 11:56:15 Case Attendance FTURO Entry 1 Entry 2 Entry 3 Case Attendee MIKE VENTURA, Oni Bradford RN, Niki Toney CST, Maria Elena Kemp Role Performed Surgeon - Primary Outbound Sales Executive - Primary Scrub - Primary Time In 03/31/23 11:52:00 03/31/23 11:52:00 03/31/23 11:52:00 Time Out 03/31/23 12:00:00 03/31/23 12:00:00 03/31/23 12:00:00 Procedure CYSTOSCOPY LOCAL(.) CYSTOSCOPY LOCAL(.) CYSTOSCOPY LOCAL(.) Comments Last Modified By: Niki Bradford RN, RN, Niki Campos RN 03/31/23 11:56:17 03/31/23 11:56:17 03/31/23 11:56:17 Surgical Procedures FTURO Entry 1 Procedure Description Procedure CYSTOSCOPY LOCAL Modifiers . Surgeon Description CYSTOSCOPY Primary Procedure Yes Primary Surgeon Oni MCKEON MD Start 03/31/23 11:53:00 Stop 03/31/23 11:56:00 Anesthesia Type Local Surgical Service Urology Wound Class 2 - Clean-Contaminated Last Modified By: Niki Bradford RN 03/31/23 11:56:08 General Case Data FTURO Pre-Care Text: Classifies surgical wound, implements aseptic technique, initiates traffic control Entry 1 Case Information OR URO 1 FT Case Level None Wound Class 2 - Clean-Contaminated Specialty Urology Preop Diagnosis HISTORY OF PROSTATE Postop Same As Preop No CANCER Postop Diagnosis HISTORY OF PROSTATE Outcomes Met? Yes CANCER, NORMAL CYSTOSCOPY Last Modified By: Niki Bradford RN 03/31/23 11:55:04 Post-Care Text: The patient is free from signs and symptoms of infection EU IntraOp - FTURO Pre-Care Text: Implements protective measures prior to operative or invasive procedure, confirms identity before the operative or invasive procedure, verifies operative procedure, surgical site, and laterality Entry 1 EU Perioperative Protocols Procedure(s) CYSTOSCOPY LOCAL(.) Patient Identity Birthday, ID Band Verified (select at Check, Patient least 2): Participation Consents / H and P HandP, Surgery/Procedure Operative Site N/A Verified Consent Marking Verified Surgical Site Yes Laterality Verified n/a Verified Procedure Verified Yes Correct Patient Yes Position Verified Availability Equipment, Medication Time Out Oni MCKEON MD, Verified (If Participants Niki Bradford RN, Applicable) Toney CST, Maria Elena Justo Time Out Complete 03/31/23 11:53:00 Allergies Reviewed? Yes Allergies Reviewed Self/Patient With Body Position Supine Prep Area PENIS Prep Agents Betadine Solution Skin. Condition Intact, [place], Warm, and Dry Additional None Specimens Collected Vitals - EU Blood Pressure 106/67 Pulse 77 bpm Respirations 14 br/min SPO2 90 % EBL 0 IandO - EU Total Intake 0 mL Total Output 0 mL Outcomes Met? Yes Last Modified By: Niki Bradford RN 03/31/23 11:53:50 Post-Care Text: The patient is free from signs and symptoms of injury caused by extraneous objects Sign Out FTURO Entry 1 Before Patient Leaves OR Nurse verbally Yes Nurse verbally n/a confirms with the confirms with the team the name of team that the procedure(s) instrument, sponge, recorded and needle counts are correct (or N/A) Nurse verbally n/a Nurse verbally n/a confirms with the confirms with the team how the team whether there specimen is labeled are any equipment (including patient problems to be name), if applicable addressed Sign Out Complete 03/31/23 11:56:00 Last Modified By: Niki Bradford RN 03/31/23 11:56:02 Case Comments Finalized By: Niki Bradford RN Document Signatures Signed By: Niki Bradford RN 03/31/23 11:56 Normal [facility] Main OR Preoperative Recordo n 03-31-2023 Main OR Preoperative Record Holding Area Document Type FTURO Summary Primary Physician: Oni MCKEON MD Finalized Date/Time: 03/31/23 11:20:59 Pt. Name: CHIKI JUAREZ/Sex: 1945 Male Med Rec #: [id number] Physician: Oni MCKEON MD Financial #: [id number] Pt. Type: O Room/Bed: / Admit/Disch: 03/31/23 10:36:36 - Institution: Case Times Holding FTURO Pre-Care Text: Verifies consent for planned procedure, identifies individual values and wishes concerning care, includes family members in perioperative teaching Secures patient's records' belongings, and valuables, maintains patient's dignity and privacy, and maintains patient confidentiality Entry 1 In Holding 03/31/23 11:17:00 Outcomes Met? Yes Last Modified By: SHALINI Koo RN, Ruthann 03/31/23 11:17:25 Post-Care Text: The patient participates in decisions affecting his or her perioperative plan of care The patient's right to privacy is maintained Surgery Checklist FTURO Entry 1 Patient Birthday, ID Band Procedure History and Physical, Identification: Check, Patient Verification: Surgical Consent, With Participation Patient NPO after Midnight: n/a Personal Items: Glasses, Pacemaker Personal Items clothes Complaints of Pain: n/a Comment: Skin Integrity Unable to Visualize Vitals - EU Blood Pressure 106/67 Pulse 77 bpm Respirations 16 br/min SPO2 90 % Additional None RN Reviewed Yes Specimens Collected Last Modified By: SHALINI Koo RN, Ruthann 03/31/23 11:20:57 Finalized By: SHALINI Koo RN, Ruthann Document Signatures Signed By: SHALINI Koo RN, Ruthann 03/31/23 11:20 Normal [facility] Operative Reporton Operative Report Patient: BRENDA JUAREZ Age: 78 years Sex: Male : 1945 Associated Diagnoses: None Author: Oni MCKEON MD Procedure Operative Information Details: Date/ Time: 03/31/2023 11:59:00. Pre-Op Dx: Micro Hematuria - Asymptomatic - R31.21, BPH w/ LUTS - N40.1. Post-Op Dx: Same. Anesthesia Type: Local. Procedure: Local Cystoscopy. Complications: None. Risks/Benefits/Informed Consent: Surgical risks, benefits, details of the procedure have been explained to the patient, Full informed consent has been obtained. Intraoperative Information Prepped: Patient is brought back to the endoscopy suite, Patient is placed in supine position, Patient prepped in the usual fashion with Betadine solution, 2% Xylocaine Jelly is placed per Urethra, After waiting several minutes the Cystoscope is introduced. The Urethra is: Normal. The Prostatic Urethra is: Obstructed, Short bilobar obstruction. The Bladder is: Trabeculated (Moderate (2), No bladder tumors. No stones.). The ureteral orifices: Show efflux of clear urine. Devices Implanted: None. Removal: Cystoscope is removed, The patient tolerated it well. Postoperative Information Discharge: Patient is discharged home with antibiotic coverage, Follow up arranged. Normal [facility] Comment on above: Result Comment: Elec tronically Signed By: MIKE VENTURA, Oni Cruz.otf\Date and Time Signed: 03/31/23 12:00 EDT Outpatient Surgery Discharge Instructionon 03-31-2023 Outpatient Surgery Discharge Instruction [id number]:1 27 Normal [facility] RAD - MISCon 03-30-2023 RAD - MISC [id number]#1.00CD:12 7 [facility] RAD - MISCon 03-24-2023 RAD - MISC [id number]#1.00CD:12 7 [facility] RAD - Ultrasound Reporton RAD - Ultrasound Report [id number]:12 7 [facility] RAD - Ultrasound Reporton RAD - Ultrasound Report [id number]#1.00CD:12 7 [facility] RAD - Ultrasound Report [id number]#1.00CD:12 7 [facility] Insurance Correspondenceon 03-13-2023 Insurance Correspondence [id number]:1 27 [facility] Urine Cytology ([facility])on 03-12-2023 Urine Cytology Diagnosis Info Invalid Interpretation Code [facility] Comment on above: Result Comment: A:Ur ine,Urine:Voided Interpretation - MicroScopic Description - Adequacy - Gross Description Site ID:A color V. Light Yellow fixative Alcohol Specimen designated Urine received in alcohol preservative and labeled with the patient?s name, consists of 90ml clear v. light yellow fluid. Electronically signed by : on: 03/12/2023 13:24:22 Performed By: #### 1 [id number] ####[facility] [address] [place] [address] Ambulatory Visit Summaryon 0 03-09-2023 Ambulatory Visit Summary CHIKI JUAREZ :1945 Visit Date:03/09/2023 Ambulatory Visit Instructions Your Diagnosis History of prostate cancer BPH with urinary obstruction Weak urine stream Microscopic hematuria Tests Performed Urnls Dip Stick Auto w/o Microscopy POC 56801 US Renal -- Results Pending -- Please visit your patient portal for your results or contact your primary care physician. Your Care Team Attending Physician - MIKE VENTURA, Oni Sewell Primary Care Physician - Navarro VENTURA, Pito Davidson This Is Your Medications List Contact prescribing physician if questions or concerns Misc Prescription (Nebulizer accessory set) albuterol (albuterol 0.083% Inh Kasie 3 mL) albuterol (albuterol 0.083% Inh Kasie 3 mL) budesonide (budesonide 0.5 mg/2 mL Inh Susp) calcium-vitamin D cyanocobalamin (Vitamin B12) furosemide (furosemide 40 mg Tab) gabapentin (gabapentin 300 mg Cap) ipratropium nasal (ipratropium Nasal 0.06% [place]) levothyroxine (levothyroxine 100 mcg (0.1 mg) Tab) metoprolol (metoprolol 25 mg ER Tab) potassium chloride (potassium chloride 10 mEq ER Tab) salmeterol (Serevent Diskus 50 mcg inhalation) tiotropium (Spiriva 18 mcg Cap) Procedures Performed Cardiac pacemaker (2019), Transrectal biopsy of prostate using ultrasound (US) guidance (03/10/2019), Cystourethroscopy (03/12/2010), Lymphadenectomy of sentinel lymph node (08/17/2006). Discharge Vitals Heart Rate (Peripheral) 71 Respiratory Rate 16 Blood Pressure 109/70 Height 168 cm Height 66 in Weight 103 kg Weight 226.6 lb BMI 36.49 What to do next Scheduled Follow-Up Appointments Thursday 11:00 AM EDT Where: [facility] Patient Educationon 03-09-20 23 Patient Education Urology Benign Prostatic Hyperplasia Benign prostatic hyperplasia (BPH) is an enlarged prostate gland that is caused by the normal aging process. The prostate may get bigger as a man gets older. The condition is not caused by cancer. The prostate is a walnut-sized gland that is involved in the production of semen. It is located in front of the rectum and below the bladder. The bladder stores urine. The urethra carries stored urine out of the body. An enlarged prostate can press on the urethra. This can make it harder to pass urine. The buildup of urine in the bladder can cause infection. Back pressure and infection may progress to bladder damage and kidney (renal) failure. What are the causes? This condition is part of the normal aging process. However, not all men develop problems from this condition. If the prostate enlarges away from the urethra, urine flow will not be blocked. If it enlarges toward the urethra and compresses it, there will be problems passing urine. What increases the risk? This condition is more likely to develop in men older than 50 years. What are the signs or symptoms? Symptoms of this condition include: ? Getting up often during the night to urinate. ? Needing to urinate frequently during the day. ? Difficulty starting urine flow. ? Decrease in size and strength of your urine stream. ? Leaking (dribbling) after urinating. ? Inability to pass urine. This needs immediate treatment. ? Inability to completely empty your bladder. ? Pain when you pass urine. This is more common if there is also an infection. ? Urinary tract infection (UTI). How is this diagnosed? This condition is diagnosed based on your medical history, a physical exam, and your symptoms. Tests will also be done, such as: ? A post-void bladder scan. This measures any amount of urine that may remain in your bladder after you finish urinating. ? A digital rectal exam. In a rectal exam, your health care provider checks your prostate by putting a lubricated, gloved finger into your rectum to feel the back of your prostate gland. This exam detects the size of your gland and any abnormal lumps or growths. ? An exam of your urine (urinalysis). ? A prostate specific antigen (PSA) screening. This is a blood test used to screen for prostate cancer. ? An ultrasound. This test uses sound waves to electronically produce a picture of your prostate gland. Your health care provider may refer you to a specialist in kidney and prostate diseases (urologist). How is this treated? Once symptoms begin, your health care provider will monitor your condition (active surveillance or watchful waiting). Treatment for this condition will depend on the severity of your condition. Treatment may include: ? Observation and yearly exams. This may be the only treatment needed if your condition and symptoms are mild. ? Medicines to relieve your symptoms, including: ? Medicines to shrink the prostate. ? Medicines to relax the muscle of the prostate. ? Surgery in severe cases. Surgery may include: ? Prostatectomy. In this procedure, the prostate tissue is removed completely through an open incision or with a laparoscope or robotics. ? Transurethral resection of the prostate (TURP). In this procedure, a tool is inserted through the opening at the tip of the penis (urethra). It is used to cut away tissue of the inner core of the prostate. The pieces are removed through the same opening of the penis. This removes the blockage. ? Transurethral incision (TUIP). In this procedure, small cuts are made in the prostate. This lessens the prostate's pressure on the urethra. ? Transurethral microwave thermotherapy (TUMT). This procedure uses microwaves to create heat. The heat destroys and removes a small amount of prostate tissue. ? Transurethral needle ablation (TUNA). This procedure uses radio frequencies to destroy and remove a small amount of prostate tissue. ? Interstitial laser coagulation (ILC). This procedure uses a laser to destroy and remove a small amount of prostate tissue. ? Transurethral electrovaporization (TUVP). This procedure uses electrodes to destroy and remove a small amount of prostate tissue. ? Prostatic urethral lift. This procedure inserts an implant to push the lobes of the prostate away from the urethra. Follow these instructions at home: ? Take qevx-ehm-tnrwgyb and prescription medicines only as told by your health care provider. ? Monitor your symptoms for any changes. Contact your health care provider with any changes. ? Avoid drinking large amounts of liquid before going to bed or out in public. ? Avoid or reduce how much caffeine or alcohol you drink. ? Give yourself time when you urinate. ? Keep all follow-up visits. This is important. Contact a health care provider if: ? You have unexplained back pain. ? Your symptoms do not get better with treatment. ? You develop side effects from the medicine (more content not included)... Normal [facility] Urine Cytology ([facility])on 03-09-2023 Method of Extraction Voided Normal [facility] Comment on above: Performed By: #### 1 [id number] ####[facility] [address] [place] [address] Number of Jars 1 Invalid Interpretation Code [facility] Comment on above: Performed By: #### 1 [id number] ####[facility] [address] [place] [address] Specimen Urine Normal [facility] Comment on above: Performed By: #### 1 [id number] ####[facility] [address] [place] [address] Type of Service Technical Only Normal [facility] Comment on above: Performed By: #### 1 [id number] ####[facility] [address] [place] [address] Urology Office/Clinic Noteon 03-09-2023 Urology Office/Clinic Note Chief Complaint 1 year f/u HPI Staff 1 year f/u. Previous dx of hx prostate cancer (EBRT 06/2019), BPH with urinary obstruction, microhematuria and weak stream. Current PSA done 01/26/23 is 0.3 and previous done 09/23/21 was 0.47. Dysuria: no Incomplete bladder emptying: no Hematuria: no Frequency: no Urgency: no Nocturia: pt does not always have to get up Stream: good steady no straining Leaking: no Post void dripping: no Wearing pads/ Depends: no Urge incontinence: no Stress incontinence: no Incontinence without Sensory Awareness: no Abdominal pain: no Flank pain: no Sexual complaints: no History of Present Illness Tests reviewed: reviewed UA I have reviewed the previous health record information and history for this patient from Dr. Mckeon. I have reviewed and verified the staff HPI to be accurate for this encounter. There have been no associated fever, chills, flank pain, or blood in the urine. Denies any urinary infections since last encounter. Review of Systems PHQ Score Initial Depression Screen Score: 0 ROS - Provider Constitutional: denies weight loss, denies hot flashes. Eyes: denies eye problems. Gastrointestinal: denies nausea, denies vomiting. Cardiovascular: denies chest pain or angina. Integumentary: no dryness Musculoskeletal: denies musculoskeletal symptoms. ENMT: denies otolaryngeal symptoms. Respiratory: no shortness of breath. Heme/Lymph: denies easy bleeding tendency, denies easy bruising tendency. Psychiatric: no confusion, no anxiety. Genitourinary: See HPI. Physical Exam Vitals & Measurements HR: 71(Peripheral) RR: 16 BP: 109/70 HT: 66 in HT: 168 cm WT: 103 kg WT: 226.6 lb BMI: 36.49 General Appearance: alert, no distress, well nourished, well developed male. Genitourinary: normal scrotum, normal testes, normal urethra, normal epididymis, normal vas deferens/spermatic cord. Flank Pain: none. Bladder: nonpalpable. Assessment/Plan Former Dr. Vidal pt. 1. History of prostate cancer (Z85.46: Personal history of malignant neoplasm of prostate) S/p EBRT 06/2019. Pt had a [place] of 4+3=7. Pt had radiation therapy through [facility]. Most recent PSA done 01/26/23 is 0.3, previously 09/23/21 was 0.47. Pt no longer needs to see Dr. Sousa with [facility]. Pt to follow up yearly with PSA. Follow up in 1 year with PSA or sooner if needed. All questions/concerns were discussed. Pt to call the office if he encounters any issues prior. Pt acknowledges understanding. 2. BPH with urinary obstruction (N40.1: Benign prostatic hyperplasia with lower urinary tract symptoms) Pt is not currently taking any BPH medications at this time, doing well with urination. 3. Weak urine stream (R39.12: Poor urinary stream) Intermittent. This is a chronic finding. He is able to control his void. [1] BMP done 01/26/23 showed 1.5 (normal range 0.5-1.3) Cr and 48 eGFR (normal range >=59). Advised pt to continue to monitor levels and to follow up with nephrology if levels were to worsen. 4. Microscopic hematuria (R31.29: Other microscopic hematuria) Intermittent. UA today negative for blood and infection. Will schedule cystoscopy and Renal US. The risks and benefits for cystoscopy have been discussed. The risks include bleeding, infection, and irritation of the bladder and urinary channel, among others. The patient, after being informed of procedural details and after questions have been answered, wishes to proceed. Full informed consent has been obtained. Will order Local anesthesia. Follow-up With When Contact Information MIKE VENTURA, Oni Sewell, [facility] [address], [place] [address] [phone] Additional Instructions: schedule cysto and renal US 1 yr w/ PSA Patient Education Benign Prostatic Hyperplasia INettie, personally scribed for Dr. Mckeon on 03/09/2023 12:06:57. . Documentation recorded by the scribe, Nettie Wolff, accurately reflects the services(s) I performed and decisions made by me. Authenticated by Dr. Mckeon on 03/09/2023 12:08:11. Problem List/Past Medical History Ongoing B12 deficiency BPH with urinary obstruction Compression fracture of thoracic vertebra with routine healing, unspecified thoracic vertebral level, subsequent encounter COPD with asthma Essential tremor Former smoker History of B-cell lymphoma History of prostate cancer Hx of cerebrovascular disorder Hypothyroid Hypothyroidism Kidney stone Microscopic hematuria Nasal congestion Neuropathy, arm Obesity due to excess calories Prostate nodule Ventral hernia Weak urine stream Historical No qualifying data Procedure/Surgical History Cardiac pacemaker (2019), Transrectal biopsy of prostate using ultrasound (US) guidance (03/10/2019), Cystourethroscopy (03/12/2010), Lymphadenectomy of sentinel lymph node (08/17/2006). Medications albuterol 0.083% Inh Kasie 3 mL, 2.5 mg= 3 mL, NEB, q4hr, (more content not included)... Normal [facility] Comment on above: Result Comment: Elec tronically Signed By: Oni MCKEON MD\.br\Date and Time Signed: 03/09/23 12:08 EDT\.br\Electronically Co-Signed By: Nettie Wolff\.otf\Date and Time Co-Signed: 03/09/23 12:07 EDT Retail - Clinical Noteon Retail - Clinical Note [id number]:12 7 Normal [facility] T3 Freeon 01-28-2023 Free T3 [Mass/Vol] 2.0 pg/mL Invalid Interpretation Code 2.0-4.4 [facility] Comment on above: Result Comment: Perf ormed at: [facility] [address] [id number] PhD Sahra Robledo Performed By: #### 2 [id number], [id number], [id number], [id number], 5228814, [id number], 0440572, 3976059 ####[facility] [address] [place] [address] Auto Diffon 01-26-2023 Basophils/100 WBC (Bld) 0.3 % Normal 0.0-2.0 [facility] Comment on above: Order Comment: Order Added by Discern Expert. Performed By: #### 2 [id number], [id number], [id number], 3644813, 7225038, 3242913, [id number], 0622068, 3134185 ####[facility] [address] [place] [address] Basophils/Leukocytes Auto (Bld) [Pure # fraction] 0.0 E9/L Normal 0.0-0.2 [facility] Comment on above: Order Comment: Order Added by Discern Expert. Performed By: #### 2 [id number], [id number], [id number], 1702838, 1537321, 1153819, [id number], 7321161, 0871130 ####[facility] [address] [place] [address] Eosinophils/100 WBC (Bld) 1.0 % Normal 0.0-8.0 [facility] Comment on above: Order Comment: Order Added by Discern Expert. Performed By: #### 2 [id number], [id number], [id number], 3003683, 3531622, 6303391, [id number], 9444364, 2371823 ####[facility] [address] [place] [address] Eosinophils/Leukocyt es Auto (Bld) [Pure # fraction] 0.0 E9/L Normal 0.0-0.5 [facility] Comment on above: Order Comment: Order Added by Discern Expert. Performed By: #### 2 [id number], [id number], 25115108, 4083816, 0711255, 2071997, [id number], 0249838, 8979727 ####[facility] [address] [place] [address] Lymphocytes/100 WBC (Bld) 19.4 % Normal 14.0-50.0 [facility] Comment on above: Order Comment: Order Added by Discern Expert. Performed By: #### 2 [id number], [id number], 14267322, 6318500, 2843803, 8242832, [id number], 2709178, 3094065 ####[facility] [address] [place] [address] Lymphocytes/Leukocyt es Auto (Bld) [Pure # fraction] 0.8 E9/L Low 1.0-4.0 [facility] Comment on above: Order Comment: Order Added by Discern Expert. Performed By: #### 2 [id number], [id number], 71623888, 1164105, 0783958, 8378486, [id number], 5896924, 1166212 ####[facility] [address] [place] [address] Monocytes/100 WBC (Bld) 34.7 % High 4.0-14.0 [facility] Comment on above: Order Comment: Order Added by Discern Expert. Performed By: #### 2 293913, 73724315, 20456977, 4133941, 0334730, 1928888, [id number], 4413628, 3066235 ####[facility] [address] [place] [address] Monocytes/Leukocytes Auto (Bld) [Pure # fraction] 1.4 E9/L High 0.2-1.0 [facility] Comment on above: Order Comment: Order Added by Discern Expert. Performed By: #### 2 058638, 44955653, 61841833, 3463838, 8139496, 2654414, 755817388, 9500609, 1880636 ####[facility] [address] [place] [address] Neutrophils/100 WBC (Bld) 44.6 % Normal 36.0-75.0 [facility] Comment on above: Order Comment: Order Added by Discern Expert. Performed By: #### 2 990733, 67670911, 85618492, 1965842, 7298479, 2225807, 619889710, 3772612, 4723036 ####[facility] [address] [place] [address] Neutrophils/Leukocyt es Auto (Bld) [Pure # fraction] 1.7 E9/L Low 2.0-7.5 [facility] Comment on above: Order Comment: Order Added by Discern Expert. Performed By: #### 2 651947, 81413252, 99408060, 3809019, 4968855, 9509817, 284410518, 3722392, 6072301 ####[facility] [address] [place] [address] CBC w/ Auto Diffon 3 Erythrocyte distribution width (RBC) [Ratio] 15.8 % High 10.9-14.2 [facility] Comment on above: Performed By: #### 2 471385, 06709256, 89157913, 5480963, 4128727, 3388969, 719738915, 0915090, 0220053 ####[address] [place] [address] Hematocrit (Bld) [Volume fraction] 33.9 % Low 37.7-49.0 [facility] Comment on above: Performed By: #### 2 869619, 81887393, 67716327, 3887455, 8710470, 7291185, 039388027, 0825806, 1212196 ####[facility] [address] [place] [address] Hemoglobin (Bld) [Mass/Vol] 11.1 g/dL Low 13.5-17.5 [facility] Comment on above: Performed By: #### 2 779733, 43176997, 81010037, 1399014, 2489394, 2397978, 791454589, 2801646, 0286003 ####[address] [place] [address] MCH (RBC) [Entitic mass] 33.2 pg Normal 27.0-34.0 [facility] Comment on above: Performed By: #### 2 002933, 90219866, 86727517, 2716603, 2407383, 5066976, 593968208, 3893977, 5550520 ####[facility] [address] [place] [address] MCHC (RBC) [Mass/Vol] 32.7 g/dL Normal 31.4-36.0 [facility] Comment on above: Performed By: #### 2 389316, 92688829, 45050668, 7880344, 8252695, 2663183, 017273246, 1727358, 3072329 ####[address] [place] [address] MCV (RBC) [Entitic vol] 101.5 fL High 80.0-100.0 [facility] Comment on above: Performed By: #### 2 790630, 85300012, 09934263, 4413756, 1155513, 0004425, 901932432, 3195904, 2495812 ####[facility] [address] [place] [address] Platelet mean volume (Bld) [Entitic vol] 9.2 fL Normal 6.4-10.8 [facility] Comment on above: Performed By: #### 2 306395, 55800921, 88224802, 6703195, 9440470, 0627602, 850373115, 2460431, 2566762 ####[facility] [address] [place] [address] Platelets (Bld) [#/Vol] 225.0 E9/L Normal 150.0-500.0 [facility] Comment on above: Performed By: #### 2 023484, 32827749, 41293729, 5044732, 0097653, 7502695, 411879831, 8063870, 8788115 ####[facility] [address] [place] [address] RBC (Bld) [#/Vol] 3.3 E12/L Low 4.3-5.9 [facility] Comment on above: Performed By: #### 2 129016, 22231757, 52194194, 5553637, 4763853, 8926877, 903699091, 0920003, 0884635 ####[facility] [address] [place] [address] WBC corrected for nucl RBC Auto (Bld) [#/Vol] 3.9 E9/L Low 4.0-11.0 [facility] Comment on above: Result Comment: Slid e reviewed by ts . Performed By: #### 2 958584, 92152667, 63511400, 9110033, 1022958, 9610295, 802479075, 9483355, 5084223 ####[facility] [address] [place] [address] CHEMISTRYOrdered By: SYSTEM SYSTEM on 01-26-2023 25-hydroxyvitamin D3 [Mass/Vol] 69.4 ng/mL Normal 30.0 - 100.0 ng/mL [facility] Remisol Albumin [Mass/Vol] 3.4 g/dL Normal 3.3 - 5.0 gm/dL [facility] Remisol Albumin/Globulin [Mass ratio] 0.9 {ratio} Low 1.1 - 2.2 [facility] Remisol ALP [Catalytic activity/Vol] 93 [iU]/d Normal 21 - 98 Int._Unit/L [facility] Remisol ALT No additional P-5'-P [Catalytic activity/Vol] 18 [iU]/d Normal 6 - 46 Int._Unit/L [facility] Remisol Anion gap [Moles/Vol] 12 mmol/L Normal 6 - 16 mEq/L [facility] Remisol AST [Catalytic activity/Vol] 15 [iU]/d Normal 5 - 43 Int._Unit/L [facility] Remisol Bilirubin [Mass/Vol] 0.3 mg/dL Normal 0.0 - 1 .1 mg/dL [facility] Remisol Calcium [Mass/Vol] 8.6 mg/dL Low 8.9 - 11. 1 mg/dL [facility] Chloride [Moles/Vol] 107 mmol/L Normal 101 - 1 11 mmol/L [facility] CO2 [Moles/Vol] 27 mmol/L Normal 21 - 31 mmol/L [facility] Remisol Creatinine [Mass/Vol] 1.5 mg/dL High 0.5 - 1.3 mg/dL [facility] Remisol Free T4 [Mass/Vol] 1.10 ng/dL Normal 0.58 - 1. 64 ng/dL [facility] Remisol GFR/1.73 sq M.predicted among non-blacks MDRD (S/P/Bld) [Vol rate/Area] 48 mL/min/1.73 m2 Low >=59mL/min/1 .73 m2 FT Chem S Globulin (S) [Mass/Vol] 3.7 g/dL Normal 1.4 - 4.0 gm/dL [facility] Remisol Glucose [Mass/Vol] 138 mg/dL Normal 55 - 199 mg/dL [facility] Remisol Potassium [Moles/Vol] 4.3 mmol/L Normal 3.5 - 5.3 mmol/L [facility] Remisol Prostate specific Ag [Mass/Vol] 0.3 ng/mL Normal 0.1 - 3.5 ng/mL [facility] Remisol Protein [Mass/Vol] 7.1 g/dL Normal 6.0 - 7.8 gm/dL [facility] Remisol Sodium [Moles/Vol] 142 mmol/L Normal 135 - 145 mmol/L [facility] Remisol TSH Qn 3.71 m[IU]/L Normal 0.34 - 5.60 mcIU/mL [facility] Remisol Urea nitrogen [Mass/Vol] 20 mg/dL Normal 5 - 21 mg/dL [facility] Remisol Urea nitrogen/Creatinine [Mass ratio] 13 mg/mg Normal 10 - 20 FT Remisol CMPon 01-26-2023 Albumin [Mass/Vol] 3.4 g/dL Normal 3.3-5.0 [facility] Comment on above: Performed By: #### 2 962677, 50030032, 81695209, 9453898, 6915292, 9966271, 889331413, 2859185, 0747859 ####[facility] [address] [place] [address] Albumin/Globulin (S) [Mass conc ratio] 0.9 Low 1.1-2.2 [facility] Comment on above: Performed By: #### 2 061695, 97048229, 28688148, 3384934, 5539456, 5796057, 470253376, 5455634, 4142097 ####[facility] [address] [place] [address] ALP [Catalytic activity/Vol] 93 Int._Unit/L Normal 21-98 [facility] Comment on above: Performed By: #### 2 546834, 60115987, 49480432, 9758234, 8393098, 5419678, 601954917, 6194121, 6611427 ####[facility] [address] [place] [address] ALT No additional P-5'-P [Catalytic activity/Vol] 18 Int._Unit/L Normal 6-46 [facility] Comment on above: Performed By: #### 2 489645, 68267198, 62973658, 0456389, 1219900, 6173109, 696684049, 6576082, 2476560 ####[facility] [address] [place] [address] Anion gap [Moles/Vol] 12 mmol/L Normal 6-16 [facility] Comment on above: Performed By: #### 2 554275, 45075206, 87180110, 4789186, 2998198, 2179720, 758217419, 1517354, 4789348 ####[facility] [address] [place] [address] AST [Catalytic activity/Vol] 15 Int._Unit/L Normal 5-43 [facility] Comment on above: Performed By: #### 2 860271, 09144797, 26950250, 1566785, 6298183, 3787627, 454919600, 0081604, 2021786 ####[facility] [address] [place] [address] Bilirubin [Mass/Vol] 0.3 mg/dL Normal 0.0-1.1 [facility] Comment on above: Performed By: #### 2 595473, 02867839, 35314086, 1810891, 9398573, 7185309, 277372358, 9187215, 4119399 ####[facility] [address] [place] [address] Calcium [Mass/Vol] 8.6 mg/dL Low 8.9-11.1 [facility] Comment on above: Performed By: #### 2 839511, 15597939, 44509730, 4501915, 2061975, 2276094, 097899283, 7275611, 1971568 ####[facility] [address] [place] [address] Chloride [Moles/Vol] 107 mmol/L Normal 101-111 [facility] Comment on above: Performed By: #### 2 791626, 84082760, 46512909, 5264705, 4585532, 7596028, 846373717, 7335733, 8365336 ####[facility] [address] [place] [address] CO2 [Moles/Vol] 27 mmol/L Normal 21-31 [facility] Comment on above: Performed By: #### 2 416337, 48746393, 34511189, 4989012, 6130999, 7837010, 166710854, 2288814, 0576833 ####[facility] [address] [place] [address] Creatinine [Mass/Vol] 1.5 mg/dL High 0.5-1.3 [facility] Comment on above: Performed By: #### 2 091643, 57193435, 28185635, 9827674, 0507625, 1527653, 364247094, 4921734, 1653118 ####[facility] [address] [place] [address] Globulin (S) [Mass/Vol] 3.7 g/dL Normal 1.4-4.0 [facility] Comment on above: Performed By: #### 2 712655, 88931861, 22876503, 7101678, 9711566, 9544482, 869692783, 2420322, 5969444 ####[facility] [address] [place] [address] Glucose [Mass/Vol] 138 mg/dL Normal 55-199 [facility] Comment on above: Result Comment: If t his glucose result represents a fasting glucose, interpretation should refer to the following reference range: 55-99 mg/dL Performed By: #### 2 598250, 35173112, 49196517, 6623973, 3299662, 2467331, 748868199, 7120962, 6906800 ####[facility] [address] [place] [address] Potassium [Moles/Vol] 4.3 mmol/L Normal 3.5-5.3 [facility] Comment on above: Performed By: #### 2 833901, 76258528, 36175618, 3523336, 5078680, 0711591, 042247133, 0119447, 5447421 ####[facility] [address] [place] [address] Protein [Mass/Vol] 7.1 g/dL Normal 6.0-7.8 [facility] Comment on above: Performed By: #### 2 178503, 90683689, 91791240, 0434314, 3755036, 0001392, 826194935, 2548791, 2193313 ####[facility] [address] [place] [address] Sodium [Moles/Vol] 142 mmol/L Normal 135-145 [facility] Comment on above: Performed By: #### 2 664435, 12830795, 47457780, 6749500, 8479604, 7980935, 914287380, 2659682, 6062667 ####[facility] [address] [place] [address] Urea nitrogen [Mass/Vol] 20 mg/dL Normal 5-21 [facility] Comment on above: Performed By: #### 2 604992, 93275688, 65175971, 6828612, 4743298, 2182131, 778341152, 3907465, 8304463 ####[facility] [address] [place] [address] Urea nitrogen/Creatinine [Mass ratio] 13 No Units Normal 10-20 [facility] Comment on above: Performed By: #### 2 838858, 37462021, 69570223, 0534364, 5843982, 5872302, 344287169, 8970927, 2462257 ####[facility] [address] [place] [address] Free T4on 01-26-2023 Free T4 [Mass/Vol] 1.10 ng/dL Normal 0.58-1.64 [facility] Comment on above: Performed By: #### 2 548083, 86709063, 59678985, 9283116, 8476409, 0753909, 500181868, 5737155, 7997003 ####[facility] [address] [place] [address] HEMATOLOGYOrdered By: SYSTEM SYSTEM on 01-26-2023 Basophils/100 WBC (Bld) 0.3 % Normal 0.0 - 2.0 % [facility] HemeAutoSS Basophils/Leukocytes Auto (Bld) [Pure # fraction] 0.0 E9/L Normal 0.0 - 0.2 E9/L [facility] HemeAutoSS Eosinophils/100 WBC (Bld) 1.0 % Normal 0.0 - 8.0 % [facility] HemeAutoSS Eosinophils/Leukocyt es Auto (Bld) [Pure # fraction] 0.0 E9/L Normal 0.0 - 0.5 E9/L [facility] HemeAutoSS Lymphocytes/100 WBC (Bld) 19.4 % Normal 14.0 - 50.0 % [facility] HemeAutoSS Lymphocytes/Leukocyt es Auto (Bld) [Pure # fraction] 0.8 E9/L Low 1.0 - 4.0 E9/L [facility] HemeAutoSS Monocytes/100 WBC (Bld) 34.7 % High 4.0 - 14.0 % [facility] HemeAutoSS Monocytes/Leukocytes Auto (Bld) [Pure # fraction] 1.4 E9/L High 0.2 - 1.0 E9/L [facility] HemeAutoSS Neutrophils/100 WBC (Bld) 44.6 % Normal 36.0 - 75.0 % [facility] HemeAutoSS Neutrophils/Leukocyt es Auto (Bld) [Pure # fraction] 1.7 E9/L Low 2.0 - 7.5 E9/L [facility] HemeAutoSS HEMATOLOGYOrdered By: Ning Wolfe on 01-26-2023 Erythrocyte distribution width (RBC) [Ratio] 15.8 % High 10.9 - 14.2 % [facility] HemeAutoSS Hematocrit (Bld) [Volume fraction] 33.9 % Low 37.7 - 49.0 % [facility] HemeAutoSS Hemoglobin (Bld) [Mass/Vol] 11.1 g/dL Low 13.5 - 17.5 gm/dL [facility] HemeAutoSS MCH (RBC) [Entitic mass] 33.2 pg Normal 27.0 - 34.0 pg [facility] HemeAutoSS MCHC (RBC) [Mass/Vol] 32.7 g/dL Normal 31.4 - 36.0 gm/dL [facility] HemeAutoSS MCV (RBC) [Entitic vol] 101.5 fL High 80.0 - 100.0 fL [facility] HemeAutoSS Platelet mean volume (Bld) [Entitic vol] 9.2 fL Normal 6.4 - 10.8 fL [facility] HemeAutoSS Platelets (Bld) [#/Vol] 225.0 E9/L Normal 150.0 - 500.0 E9/L [facility] HemeAutoSS RBC (Bld) [#/Vol] 3.3 E12/L Low 4.3 - 5.9 E12/L [facility] HemeAutoSS WBC corrected for nucl RBC Auto (Bld) [#/Vol] 3.9 E9/L Low 4.0 - 11.0 E9/L [facility] HemeAutoSS Comment on above: Result Comment: Slid e reviewed by ts . 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) Prostate nodule (N40.2: Nodular prostate without lower urinary tract symptoms) Medications albuterol 0.083% Inh Kasie 3 mL, 2.5 mg= 3 mL, NEB, q4hr, 3 refills albuterol 0.083% Inh Kasie 3 mL, See Instructions budesonide 0.5 mg/2 mL Inh Susp, 0.5 mg= 2 mL, NEB, BID, 11 refills calcium-vitamin D furosemide 40 mg Tab, 40 mg= 1 tab(s), Oral, Daily gabapentin 300 mg Cap, 300 mg= 1 cap(s), Oral, Once a day (at bedtime) ipratropium Nasal 0.06% [place], 2 spray(s), Nasal, BID, 1 refills levothyroxine 100 mcg (0.1 mg) Tab, 100 mcg= 1 tab(s), Oral, Daily metoprolol 25 mg ER Tab, 12.5 mg= 0.5 tab(s), Oral, Daily Nebulizer accessory set, See Instructions potassium chloride 10 mEq ER Tab, 10 mEq= 1 tab(s), Oral, Daily Serevent Diskus 50 mcg inhalation, Inhalation, BID Spiriva 18 mcg Cap, 18 mcg= 1 cap(s), Inhalation, Daily Vitamin B12 Allergies No Known Allergies Immunizations Vaccine Date Status SARSCoV2 mRNA(dzgwfnzvb-yscu-xoebv s) vac 03/11/2022 Recorded SARS-CoV-2 (COVID-19) mRNA BNT-162b2 vax 06/25/2021 Recorded influenza virus vaccine, inactivated 05/24/2021 Recorded SARS-CoV-2 (COVID-19) mRNA BNT-162b2 vax 11/13/2020 Recorded SARS-CoV-2 (COVID-19) mRNA BNT-162b2 vax 10/22/2020 Recorded zoster vaccine, inactivated 07/24/2020 Recorded zoster vaccine, inactivated 05/09/2020 Recorded diphtheria/pertussis, acel/tetanus adult 05/09/2020 Recorded influenza virus vaccine, inactivated 05/09/2020 Recorded influenza virus vaccine, inactivated 04/16/2019 Recorded pneumococcal 23-valent vaccine 05/25/2018 Recorded influenza virus vaccine, inactivated 05/25/2018 Recorded pneumococcal 23-valent vaccine 04/26/2018 Recorded influenza virus vaccine, inactivated 04/26/2018 Recorded pneumococcal 13-valent vaccine 08/04/2017 Recorded influenza virus vaccine, inactivated 08/04/2017 Recorded Normal [facility] PSA Screen, Totalon 01-27-20 Prostate specific Ag [Mass/Vol] 0.3 ng/mL Normal 0.1-3.5 [facility] Comment on above: Result Comment: The concentration of PSA determined by different manufacturers can vary due to differences in assay methods and reagent specificity. Values obtained from different assay methods cannot be used interchangeably. The methodology used for this result was chemiluminescence using [employer] Access Hybrite[employer] PSA reagent. Performed By: #### 2 042847, 26646694, 06781181, 4213167, 5051013, 8150727, 555238594, 8901965, 0634529 #### [facility] [address] [place] [address] TSHon 01-26-2023 TSH Qn 3.71 m[IU]/L Normal 0.34-5.60 [facility] Comment on above: Performed By: #### 2 006124, 48597799, 13603895, 7066369, 8096767, 0062609, 691487519, 9966775, 5106061 ####[facility] [address] [place] [address] Vitamin D 25 Hydroxyon 01-26 25-hydroxyvitamin D3 [Mass/Vol] 69.4 ng/mL Normal 30.0-100.0 [facility] Comment on above: Result Comment: Vit gordon D deficiency has been defined as a level of serum 25-OH vitamin D less than 20 ng/mL (1,2) by the [place] of [employer] and an Endocrine Society practice guideline. The Endocrine Society further defined vitamin D insufficiency as a level between 21 and 29 ng/mL (2). 1. IOM ([place] of [employer]). 2010. Dietary reference intakes for calcium and D. [place]: The National Academies Press. 2. Fuad MF, Thien MARTINO, Lisa HEIN, et al. Evaluation, treatment, and prevention of vitamin D deficiency: an Endocrine Society clinical practice guideline. JCEM. 2010; 96 (7):1911-30. Performed By: #### 2 248193, 91433136, 85014287, 8066291, 1756310, 8278054, 048875767, 9067478, 1179581 ####[facility] [address] [place] [address] eGFRon 01-26-2023 GFR/1.73 sq M.predicted among non-blacks MDRD (S/P/Bld) [Vol rate/Area] 48 mL/min/1.73 m2 Low >=59 [facility] Comment on above: Order Comment: Order added by Discern Expert. 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 Kidney failure is indicated at less than 15 mL/min/1.73m2. Performed By: #### 2 108294, 63988818, 29023481, 9907822, 7122667, 7987677, 708531037, 9992053, 2526232 ####[facility] [address] [place] [address] Family Medicine Office/Clini c Noteon 01-22-2023 Family Medicine Office/Clinic Note Chief Complaint pt herer for lab work and medication review HPI Staff Chiki is at 77 year old Male presenting today to Medication Re check, Lab work Patient is here for follow up on Thyroid Disease. Do you have any of the following symptoms? Change in energy level? no Weight change? no Heat/cold intolerance? no Hair/skin/nail changes? no Change in bowels? no Last TSH: unknown Concerns: needs new Rx for nebulizer for [place] [place] for new supplies History of Present Illness pt presents today for follow up and labs Review of Systems PHQ Score Initial Depression Screen Score: 0 ROS - Provider Constitutional: no fever, no chills, no sweats, no fatigue Respiratory: no shortness of breath, no cough, no orthopnea, no wheezing. Cardiovascular: no chest pain, no palpitations, no edema. Neurologic: no headache, no dizziness, no numbness, no weakness. EENT: nasal congestion/pressure Physical Exam Vitals & Measurements HR: 80(Peripheral) BP: 110/62 SpO2: 94% HT: 64 in HT: 162 cm WT: 98.3 kg WT: 216.26 lb BMI: 37.46 General: alert, no acute distress ENMT: oral mucosa moist, no pharyngeal erythema or exudate, nasal pressure Cardiovascular: regular rate and rhythm, normal peripheral perfusion Respiratory: Lungs CTA, respirations non labored Extremities: no deformity, no trauma Neurological: oriented x 4, LOC appropriate for age, CN II-XII intact, motor strength equal & normal bilaterally, speech normal Assessment/Plan 1. Hypothyroid (E03.9: Hypothyroidism, unspecified) pt presents today for follow up and is need to have thyroid level checked. TSH ordered in office today. Ordered: gabapentin, 300 mg = 1 cap(s), Oral, Once a day (at bedtime), # 30 cap(s), Refills(s) 0, Pharmacy: [id number], 162, cm, 01/22/23 13:19:00 EDT, Height/Length Dosing, 98.3, kg, 01/22/23 13:19:00 EDT, Weight Dosing Misc Prescription, Nebulizer accessory set, See Instructions, 1 EA, 0, pt to use nebulizer as prescribed for COPD, [facility] ([email or web address] Supply, 162, cm, 01/22/23 13:19:00 EDT, Height/Length Dosing, 98.3, kg, 01/22/23 13:19:00 EDT, Weight Dosing CBC w/ Auto Diff PSA Screen, Total 2. Prostate nodule (N40.2: Nodular prostate without lower urinary tract symptoms) psa ordered. unable to draw in office today. pt to return as a nurse visit after he rehydrates on Thursday Ordered: gabapentin, 300 mg = 1 cap(s), Oral, Once a day (at bedtime), # 30 cap(s), Refills(s) 0, Pharmacy: [id number], 162, cm, 01/22/23 13:19:00 EDT, Height/Length Dosing, 98.3, kg, 01/22/23 13:19:00 EDT, Weight Dosing Misc Prescription, Nebulizer accessory set, See Instructions, 1 EA, 0, pt to use nebulizer as prescribed for COPD, [facility] ([facility] ), Supply, 162, cm, 01/22/23 13:19:00 EDT, Height/Length Dosing, 98.3, kg, 01/22/23 13:19:00 EDT, Weight Dosing CBC w/ Auto Diff PSA Screen, Total 3. 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 pt has spinal nerve damage and was told that because of his lung disease a surgeon will not touch him. pt takes tylenol twice a day. but states the pain is really bad especially at night. will order gabapentin Ordered: gabapentin, 300 mg = 1 cap(s), Oral, Once a day (at bedtime), # 30 cap(s), Refills(s) 0, Pharmacy: [id number], 162, cm, 01/22/23 13:19:00 EDT, Height/Length Dosing, 98.3, kg, 01/22/23 13:19:00 EDT, Weight Dosing Misc Prescription, Nebulizer accessory set, See Instructions, 1 EA, 0, pt to use nebulizer as prescribed for COPD, [facility] ([facility] Supply, 162, cm, 01/22/23 13:19:00 EDT, Height/Length Dosing, 98.3, kg, 01/22/23 13:19:00 EDT, Weight Dosing 4. 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 Nasal congestion (R09.81: Nasal congestion) pt had URI during [facility] visit and was prescribed zpak. he got diarrhea from it but was able to finish it. he states he was previously prescribed a nasal spray by dr. Berg. refills of that was sent to [facility] Orders: ipratropium nasal, 2 spray(s), Nasal, BID, 1 EA, Refill(s) 1, PLACE 2 SPRAYS IN EACH NOSTRIL TWO TIMES DAILY., [id number], 162, cm, 01/22/23 13:19:00 EDT, Height/Length Dosing, 98.3, kg, 01/22/23 13:19:00 EDT, Weight Dosing Follow-up No qualifying data available Problem List/Past Medical History Ongoing B12 deficiency BPH with urinary obstruction Compression fracture of thoracic vertebra with routine healing, unspecified thoracic vertebral level, subsequent encounter COPD with asthma Essential tremor Former smoker History (more content not included)... Normal [facility] Comment on above: Result Comment: Elec tronically Signed By: Marlys Carcamo\.br\Date and Time Signed: 01/22/23 14:31 EDT Family Medicine Office/Clini c Noteon 01-19-2023 Family Medicine Office/Clinic Note Chief Complaint Subsequent Medicare Wellness Visit Review of Systems PHQ Score Initial Depression Screen Score: 0 Physical Exam Vitals & Measurements HR: 73(Peripheral) BP: 120/70 SpO2: 92% HT: 162 cm HT: 64 in WT: 100.4 kg WT: 220.88 lb BMI: 38.26 Assessment/Plan 1. Annual visit for general adult medical examination without abnormal findings (Z00.00: Encounter for general adult medical examination without abnormal findings) The patient was given a customized and personalized print out of all the current AHRQ USPSTF?s recommendations for preventative services and all current CDC recommended immunizations, relevant risk recommendations and the following patient brochures were given. Reviewed Medicare preventative services checklist. CDC-Falls Prevention and home safety screening reviewed. Patient denies any falls in last 12 months, voices no worry about falling, exhibits no problems with sitting, standing, or ambulation. Pt voices understanding with keeping walk way area free of clutter to prevent tripping and/or falling. Patient denies any problems with ADL?s and Instrumental ADL?s. Cognitive screening completed with memory and clock face drawing, no deficits noted. Immunization Record reviewed with the patient. Shingrix vaccine is up to date. COVID vaccines have been administered, with 2 boosters. Immunization record is up to date. Allergies and medications reviewed and up to date. Patient denies concerns with taking medication as prescribed, reviewed OTC medications with patient, medication list up to date. Blood tests were reviewed: Discussed what tests need to be updated. Labs were ordered, will have completed at next visit, 01/22/2023 Colonoscopy, patient does not wish to schedule at this time. Reviewed pain symptoms with patient: patient states chronic neck and back pain. Takes Tylenol and ibuprofen OTC as needed as well as heat therapy. Declines need for PT at this time. Reviewed all outside providers that patient follows. Last visit summary notes available in chart and/or have been requested. Follow up scheduled, 01/22/2023 AWV has been scheduled, 01/22/2024 Medicare provides yearly screening for alcohol and depression concerns. This is completed during our Medicare Wellness visit for those who do not have a current diagnosis of depression or concerns with alcohol use. I spent a total of 17 minutes on this date of service which included preparing to see the patient, face to face patient care, completing clinical documentation, obtaining and/or reviewing separately obtained history, counseling and educating the patient with handouts. Explanations were provided with reviewing questionnaires. AUDIT risk assessment screening completed, risk score 1 with patient denying concerns with use. Completed PHQ-2 risk assessment for depression with risk score 0, negative findings. Patient has been reminded to notify the provider if there would be a change or concerns with symptoms with fear, unable to sleep, worrying too much or feeling down and/or sad with lost of interest with daily activities. Will continue to monitor with screening yearly during Medicare wellness visits. 2. Advanced directives, counseling/discussion (Z71.89: Other specified counseling) An explanation and discussion of ADVANCED CARE PLANNING for end of life discussed. Face to face 16 minutes: discussion included if patient has a POA/LW completed, documents provided to patient. Patient will review documents and complete with family. Organ Donation status to be decided, form to be filled out and mailed to license bureau, address provided. Patient aware may have documents notarized upon completion, or 2 witnesses in office, prior to scanning to chart. 3. Obesity due to excess calories (E66.09: Other obesity due to excess calories) A combination of diet and exercise can help you lose the weight. Discussed weight loss benefits to dietary management and overall health with increased cardiovascular risks associated with waist measurement > 40 inches in males. Reminded pt importance to work on lowering current body weight with healthy dietary intake choices with understanding of portion control. Reviewed goals and patient's readiness with needing to make a healthier lifestyle change. Will work on increasing daily activity and prevent further weight gain. Will follow up with PCP during office visits for progress The standard range for ages 18 and older is >=18.5 and < 25 kg/m2. Your BMI 38.26 today, is above this range, this falls in the morbid obese category and there are medical benefits to weight loss. BMI monitoring is helpful with identifying a weight problem that may be related to a medical condition, or may increase the risk for medical problems. Your BMI and weight management will be followed at subsequent visits with your provider and monitored for progress. Patient will continue to follow with PCP as needed. 4. 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 Normal [facility] Comment on above: Result Comment: Elec tronically Signed By: Marlys Carcamo\.br\Date and Time Signed: 01/19/23 15:49 EDT\.br\Electronically Co-Signed By: Tres Queen.otf\Date and Time Co-Signed: 01/16/23 14:05 EDT [place] 01-19-2023 Screens [id number] [facility] Patient Educationon 01-17-20 23 Patient Education Caregiving Fall Prevention in the Home, Adult Falls can cause injuries and affect people of all ages. There are many simple things that you can do to make your home safe and to help prevent falls. Ask for help when making these changes, if needed. What actions can I take to prevent falls? General instructions ? Use good lighting in all rooms. Replace any light bulbs that burn out, turn on lights if it is dark, and use night-lights. ? Place frequently used items in [id number]-si-uljps places. Lower the shelves around your home if necessary. ? Set up furniture so that there are clear paths around it. Avoid moving your furniture around. ? Remove throw rugs and other tripping hazards from the floor. ? Avoid walking on wet floors. ? Fix any uneven floor surfaces. ? Add color or contrast paint or tape to grab bars and handrails in your home. Place contrasting color strips on the first and last steps of staircases. ? When you use a stepladder, make sure that it is completely opened and that the sides and supports are firmly locked. Have someone hold the ladder while you are using it. Do not climb a closed stepladder. ? Know where your pets are when moving through your home. What can I do in the bathroom? ? Keep the floor dry. Immediately clean up any water that is on the floor. ? Remove soap buildup in the tub or shower regularly. ? Use nonskid mats or decals on the floor of the tub or shower. ? Attach bath mats securely with double-sided, nonslip rug tape. ? If you need to sit down while you are in the shower, use a plastic, nonslip stool. ? Install grab bars by the toilet and in the tub and shower. Do not use towel bars as grab bars. What can I do in the bedroom? ? Make sure that a bedside light is easy to reach. ? Do not use oversized bedding that reaches the floor. ? Have a firm chair that has side arms to use for getting dressed. What can I do in the kitchen? ? Clean up any spills right away. ? If you need to reach for something above you, use a sturdy step stool that has a grab bar. ? Keep electrical cables out of the way. ? Do not use floor tajik or wax that makes floors slippery. If you must use wax, make sure that it is non-skid floor wax. What can I do with my stairs? ? Do not leave any items on the stairs. ? Make sure that you have a light switch at the top and the bottom of the stairs. Have them installed if you do not have them. ? Make sure that there are handrails on both sides of the stairs. Fix handrails that are broken or loose. Make sure that handrails are as long as the staircases. ? Install non-slip stair treads on all stairs in your home. ? Avoid having throw rugs at the top or bottom of stairs, or secure the rugs with carpet tape to prevent them from moving. ? Choose a carpet design that does not hide the edge of steps on the stairs. ? Check any carpeting to make sure that it is firmly attached to the stairs. Fix any carpet that is loose or worn. What can I do on the outside of my home? ? Use bright outdoor lighting. ? Regularly repair the edges of walkways and driveways and fix any cracks. ? Remove high doorway thresholds. ? Trim any shrubbery on the main path into your home. ? Regularly check that handrails are securely fastened and in good repair. Both sides of all steps should have handrails. ? Install guardrails along the edges of any raised decks or porches. ? Clear walkways of debris and clutter, including tools and rocks. ? Have leaves, snow, and ice cleared regularly. ? Use sand or salt on walkways during winter months. ? In the garage, clean up any spills right away, including grease or oil spills. What other actions can I take? ? Wear closed-toe shoes that fit well and support your feet. Wear shoes that have rubber soles or low heels. ? Use mobility aids as needed, such as canes, walkers, scooters, and crutches. ? Review your medicines with your health care provider. Some medicines can cause dizziness or changes in blood pressure, which increase your risk of falling. Talk with your health care provider about other ways that you can decrease your risk of falls. This may include working with a physical therapist or associate trainer to improve your strength, balance, and endurance. Where to find more information ? Centers for Disease Control and Prevention, [place]: www.cdc.gov ? National [place] on Aging: www.yasmin.nih.gov Contact a health care provider if: ? You are afraid of falling at home. ? You feel weak, drowsy, or dizzy at home. ? You fall at home. Summary ? There are many simple things that you can do to make your home safe and to help prevent falls. ? Ways to make your home safe include removing tripping hazards and installing grab bars in the bathroom. ? Ask for help when making these changes in your home. This information is not intended to replace advice given to you by your health ca (more content not included)... Normal [facility] Office Visiton 11-28-2022 Follow-up visit [id number] Tremaine Juarez [address] [facility] Provider Department Center 11/28/2022 [facility]NAST[facility] Family History Problem Relation Age of Onset Stroke Father Family Status - Relation Status Age at Father Level of Service:45674 [place] OFFICE/OUTPATIENT ESTABLISHED LOW MDM 20-29 MIN Reason for Visit and Comments: Hyperlipidemia [182] Shortness of Breath [969662] Normal [facility] Family Medicine Office/Clini c Noteon 10-29-2022 Family Medicine Office/Clinic Note Chief Complaint sinusitis HPI Staff Patient is here to establish care Establish Care: History: Any previous diagnosis: htn,thyroid History of seeing any specialist:pulmonary When was your last doctors visit: Last provider:Dr. Sherwood Any recent labs:07/17/23 in [place] Acute: Current issues/complaints: sinus infection Health Maintenance UTD: PSA:Due AMW:Due History of Present Illness Chiki is a 77-year-old male who presents today for an evaluation of sinusitis. Chiki has a history of B-cell lymphoma, hypothyroidism, asthma, COPD, vitamin B12 deficiency, tremors, stroke, and a fracture of the thoracic spine. He also has a ventral hernia with no strangulation. The patient explains that Dr. Sherwood found cancer in him twice. The patient does not have cystic fibrosis, but is symptomatic of it. He has one of the two markers for cystic fibrosis. Chiki reports that his piping manager, Dr. Berg from the [facility] told him that he is symptomatic. He has phlegm and congestion. Today, he does not have any congestion. He has really bad sinus issues and if he starts draining, he chokes and gags. Chiki reports that he gets hiccups and it seems like it pumps everything out of his lungs up to his throat. He feels like he cannot spit it out or swallow it back. He sometimes experiences heavy and sticky phlegm, but it is not constant. Chiki reports that he has had x-rays of his throat and they think it is from the damage in his throat area from the stroke. The patient did not have a speech problem before the stroke. He does not want his current sinus problems to worsen. The patient denies trying Mucinex. Chiki reports that he has a machine that he can breathe through to help bring up mucus. He can use the machine for days and no mucus will come up. The patient reports that sometimes when he is eating, he will gag a little bit and have to bring up mucus. The patient has not seen Dr. Sherwood for some time and he does not like to be here when he does not have to be. Chiki reports that his urologist, Dr. Romeo Vidal, has retired. He was supposed to see him next month for his prostate cancer. He has since made a new appointment with another provider from Dr. Romeo Vidal's office. It has been 2 years since he has seen him. The patient notes that his PSA was last approximately 0.28 ng/mL. Chiki notes that he needs a refill on his budesonide. Budesonide is not stocked at his drug store and it needs to be ordered. The patient states he has about 2 weeks left of budesonide. He usually takes a recurrent antibiotic May through December each year. Last year, the patient reports that Dr. Berg prescribed Claritin for him to take all year long. Dr. Berg believes some of his reactions are from his allergies. The patient states that he had a lump in his throat in 2006. It started out with a sore throat that he thought was just an abscess. He saw Dr. Sherwood for this and was told to go to the hospital. He was then diagnosed with lymphoma. He was told that he would live 3 to 6 months, and if he made it to 6 months, 3 months were not going to be good without treatments. The patient was also told that if the treatments work, he might make it for 30 more years. He states that it seems like the treatments worked. He reports that when his insurance changed, he ended up with 9 rescue inhalers. He notes that he has a growth on his head and fungus on his toenails. Review of Systems PHQ Score Initial Depression Screen Score: 0 Physical Exam Vitals & Measurements HR: 83(Peripheral) BP: 124/60 SpO2: 90% HT: 64 in HT: 162 cm WT: 99.8 kg WT: 219.56 lb BMI: 38.03 General: alert, no acute distress Cardiovascular: regular rate and rhythm, normal peripheral perfusion Respiratory: Diminished breath sounds but clear diffusely. Extremities: no deformity, no trauma Neurological: oriented x 4, LOC appropriate for age, CN II-XII intact, motor strength equal & normal bilaterally, speech normal Assessment/Plan 1. Acute recurrent frontal sinusitis (J01.11: Acute recurrent frontal sinusitis) Given the patient has already been on other antibiotics, we will try Cipro 500 mg twice daily. We will try to get documentation from his piping manager about this lung condition that he needs the recurrent antibiotic for during the winter. This way we can help him next year through this. Patient has been made aware and we discussed use of Mucinex to also help with the thick mucus production. Patient will follow up in a few months for Medicare wellness visit and to be seen by us again. Hopefully at that time, we can also get lab work. 2. History of prostate cancer (Z85.46: Personal history of malignant neoplasm of prostate) No issues at this time. Follows with urology. 3. History of B-cell lymphoma (Z85.72: Personal history of non-Hodgkin lymphomas) This has been many years since he has had this. No recurrence at this time. 4. Compression fracture of thoracic vertebra (more content not included)... Normal [facility] Comment on above: Result Comment: Elec tronically Signed By: Pito Patterson MD\.br\Date and Time Signed: 10/29/22 13:24 EDT\.br\Electronically Co-Signed By: Shelly Liang\Date and Time Co-Signed: 10/28/22 19:22 EDT Ambulatory Visit Summaryon 0 10-28-2022 Ambulatory Visit Summary CHIKI JUAREZ :1945 Visit Date:10/28/2022 Ambulatory Visit Instructions Your Diagnosis Acute recurrent frontal sinusitis History of prostate cancer History of B-cell lymphoma Compression fracture of thoracic vertebra with routine healing, unspecified thoracic vertebral level, subsequent encounter COPD with asthma Hypothyroid Hx of cerebrovascular disorder B12 deficiency Essential tremor Ventral hernia Your Care Team Attending Physician - Navarro VENTURA, Pito Del Toro. Primary Care Physician - JARETT VENTURA, WILL Del Toro This Is Your Medications List albuterol (albuterol 0.083% Inh Kasie 3 mL) budesonide (budesonide 0.5 mg/2 mL Inh Susp) ciprofloxacin (Cipro 500 mg Tab) Contact prescribing physician if questions or concerns amoxicillin (amoxicillin 500 mg Cap) calcium-vitamin D cephalexin (cephalexin 500 mg Cap) cyanocobalamin (Vitamin B12) doxycycline (doxycycline hyclate 100 mg Tab) indacaterol (Arcapta Neohaler 75 mcg inhalation capsule) levothyroxine (levothyroxine 100 mcg (0.1 mg) Tab) metoprolol (metoprolol 25 mg ER Tab) salmeterol (Serevent Diskus 50 mcg inhalation) spironolactone (spironolactone 50 mg Tab) tiotropium (Spiriva 18 mcg Cap) [Image Removed: STOP]Stop taking these medications acetaminophen-codeine (acetaminophen-codeine #3) Procedures Performed Transrectal biopsy of prostate using ultrasound (US) guidance (03/10/2019), Cystourethroscopy (03/12/2010), Lymphadenectomy of sentinel lymph node (08/17/2006). Discharge Vitals Heart Rate (Peripheral) 83 Blood Pressure 124/60 Height 162 cm Height 64 in Weight 99.8 kg Weight 219.56 lb BMI 38.03 What to do next Scheduled Follow-Up Appointments Thursday 9:30 AM EDT With: MIKE VENTURA, Oni Sewell Where: [facility] ----- CHIKI JUAREZ ([id number]) 1945 M Date Time Provider Department 08/05/22 LYNSEY DIAZ During your visit today, we recorded the following information about you: Lynsey Diaz RN 08/05/2022 1:45 PM Signed ----- Message from Tyler Draper MD sent at 08/04/2022 12:29 PM EST ----- Please inform the patient that his PSA is stable at 0.26. We will continue as planned. Thanks, BRM Lynsey Diaz RN 08/05/2022 1:46 PM Signed Informed pt of Dr Draper's message. Pt verbalized understanding and denies further needs at this time. Lynsey Diaz RN Allergies As of Date: 08/05/2022 Noted Allergy Reaction SPIRONOLACTONE 09/18/2021 14 - Other: See Comments Comments: Leg cramps, Hyperkalemia Date Reviewed: 07/31/2022 Reviewed by: Sanna Turner MA - Fully Assessed Reason for Visit: Results [95] Prescriptions as of 08/05/2022 - albuterol (PROVENTIL) 2.5 mg /3 mL (0.083 %) nebulizer solution albuterol sulfate 2.5 mg/3 mL (0.083 %) solution for nebulization INHALE 1 VIAL VIA NEBULIZER EVERY 4 HOURS - amoxicillin (POLYMOX, AMOXIL) 500 mg capsule Take 500 mg by mouth. - cephALEXin (KEFLEX) 500 mg capsule Take 500 mg by mouth. - potassium chloride SR (MICRO-K) 10 mEq CR capsule - furosemide (LASIX) 20 mg tablet q 24 HR. - ferrous sulfate 325 mg (65 mg iron) tablet - influenza vaccine qs 240 mcg, Patients 65 years and older,, PF, (FLUZONE HIGHDOSE QUAD - PF) 240 mcg/0.7 mL injection Fluzone High-Dose Quad 2020-21 (PF) 240 mcg/0.7 mL IM syringe PHARMACY ADMINISTERED - cholecalciferol (VITAMIN D3) 1,000 unit tab tablet Take 1,000 Units by mouth. - METOPROLOL SUCCINATE ORAL Take 25 mg by mouth once daily. - doxycycline hyclate (VIBRAMYCIN) 100 mg capsule Take 100 mg by mouth once daily. - salmeterol (SEREVENT DISKUS) 50 mcg/dose diskus inhaler Inhale 1 Puff as instructed twice daily. - predniSONE (DELTASONE) 10 mg tablet Take 10 mg by mouth once daily. - aspirin, enteric coated (ASPIRIN, ENTERIC COATED) 81 mg EC tablet Take 81 mg by mouth once daily. - acetaminophen-codeine (TYLENOL-COD #3) 300-30 mg per tablet acetaminophen 300 mg-codeine 30 mg tablet - budesonide (PULMICORT) 0.5 mg/2 mL nebulizer solution 2 mL. - indacaterol (ARCAPTA NEOHALER) 75 mcg CpDv Arcapta Neohaler 75 mcg capsule with inhalation device - ipratropium-albuterol (DUONEB) 0.5 mg-3 mg(2.5 mg base)/3 mL nebu INHALE 1 VIAL VIA NEBULIZER EVERY 6 HOURS NEEDED *DX J44.9* - spironolactone (ALDACTONE) 50 mg tablet spironolactone 50 mg tablet - tiotropium (SPIRIVA WITH HANDIHALER) 18 mcg inhalation capsule - CALCIUM CITRATE-VITAMIN D3 ORAL Take by mouth. - cyanocobalamin, vitamin B-12, (VITAMIN B-12 ORAL) Take by mouth. - polyethylene glycol 3350 (MIRALAX, GLYCOLAX) 17 gram/dose powder MIX 1 TABLESPOONFUL DIRECTED AND DRINK EVERY DAY - PROAIR HFA 90 mcg/actuation inhaler Inhale 1 Puff as instructed as needed. - levothyroxine (SYNTHROID) 100 mcg tablet Take 100 mcg by mouth daily before breakfast. 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 Trevor Nichols Calcium [Mass/Vol] 8.8 mg/dL Normal 8.5-10.1 [facility] Comment on above: Performed By: #### B MP ####[facility] [address] [place], [place] [address]Dr. Trevor Nichols Chloride [Moles/Vol] 104 mmol/L Normal 98-107 [facility] Comment on above: Performed By: #### B MP ####[facility] [address] [place], [place] [address]Dr. Trevor Nichols CO2 [Moles/Vol] 26.0 mmol/L Normal 21.0-32.0 [facility] Comment on above: Performed By: #### B MP ####[facility] [address] [place], [place] [address]Dr. Trevor Nichols Creatinine [Mass/Vol] 1.49 mg/dL Critically high 0.70-1.30 [facility] Comment on above: Performed By: #### B MP ####[facility] [address] [place], [place] [address]Dr. Trevor Nichols EGFR-AF BURMESE 56 mL/min/1.73m2 Critically low >=60 [facility] Comment on above: Performed By: #### B MP ####[facility] [address] [place], [place] [address]Dr. Trevor Nichols EGFR-NON AF BURMESE 46 mL/min/1.73m2 Critically low >=60 [facility] Comment on above: Performed By: #### B MP ####[facility] [address] [place], [place] [address]Dr. Trevor Nichols Glucose [Mass/Vol] 115 mg/dL Critically high 74-106 [facility] Comment on above: Performed By: #### B MP ####[facility] [address] [place], [place] [address]Dr. Trevor Nichols Potassium [Moles/Vol] 4.0 mmol/L Normal 3.5-5.1 [facility] Comment on above: Performed By: #### B MP ####[facility] [address] [place] [id number]. Trevor Nichols Sodium [Moles/Vol] 140 mmol/L Normal 136-145 [facility] Comment on above: Performed By: #### B MP ####[facility] [address] [place] [id number]. Trevor Nichols Urea nitrogen [Mass/Vol] 22.0 mg/dL Critically high 7.0-18.0 [facility] Comment on above: Performed By: #### B MP ####[facility] [address] [place] [address]Dr. Trevor Nichols Urea nitrogen/Creatinine [Mass ratio] 14.8 mg/mg Normal [facility] Comment on above: Performed By: #### B MP ####[facility] [address] [place] [id number]. Trevor Nichols NM STRESS/REST MULTIon 04-16 NM STRESS/REST MULTI Patient: JANNETH JUAREZ Exam Date: 04/16/2022 : 1945 Gender:M Ordering : DR DANIELLA EASTON M.D. Admission #: [id number] Family : DR WILL SHERWOOD . Order #: [id number] CLICK HERE TO VIEW EXAM RADIOLOGY REPORT PROCEDURE: RADIONUCLIDE IMAGING STRESS/REST MULTI COMPARISON: None. INDICATIONS: Dyspnea TECHNIQUE: Exam Description: Stress/Rest two day protocol gated SPECT Rest Imagin.2 mCi Tc-99m Cardiolite IV on 04/14/2022 Stress Imaging 26.9 mCi Tc-99m Cardiolite IV on 04/16/2022 Exercise Protocol: 0.4 mg Lexiscan given IV Heart Rate (bpm): Rest: 76 Max: 86 PMHR: 59 Blood Pressure: Rest: 112/66 Max: 112/66 Symptoms: Rest and peak stress ECG findings were normal and the exercise portion of the study was normal per attending physician Dr. Sherwood . For more details please see separate cardiac stress test report. FINDINGS: QUALITY OF STUDY: Good. PERFUSION DEFECT: LOCATION: Basal inferoseptal. Basal inferior. SIZE: Small (1-2 segments). SEVERITY: Mild. TYPE: Persistent. WALL MOTION: Normal. LV SIZE: Normal. mL. TID / TCD: None; LVEF: Normal. Calculated EF %. SUMMARY: Myocardial perfusion imaging study has ABNORMAL findings. CONCLUSION: 1. Small fixed defect inferior wall possibly diaphragmatic attenuation artifact 2. No reversible ischemia 3. Normal exercise test Dictated by: Aleta Beatty MD on 04/16/2022 at 10:19 Approved by: Aleta Beatty MD on 04/16/2022 at 10:23 Normal [facility] ECHOCARDIO M/2D COMPLETEon 0 02-19-2022 ECHOCARDIO M/2D COMPLETE Patient: CHIKI JUAREZ Exam Date: 02/19/2022 : 1945 Gender:M Ordering : CRISTÓBAL DouglasJeffery JENI Admission #: [id number] Family : DR WILL SHERWOOD . Order #: [id number] CLICK HERE TO VIEW EXAM ECHOCARDIOGRAM REPORT PROCEDURE: CARDIO PULMONARY ECHOCARDIO M/2D COMP INDICATIONS: Systolic heart failure, Asthma, Emphysema COMPARISON: None. DESCRIPTION: COMPLETE ECHOCARDIOGRAM Real-time transthoracic echocardiography with 2D, M-mode, spectral and color flow Doppler performed. QUALITY: Technical quality was limited because of lung artifact. 64 220# 118/58 HR 81 LEFT VENTRICLE: Normal chamber size. Mild concentric left ventricular hypertrophy. Limited acoustic windows due to significant lung interference. Global left ventricular systolic function is difficult to assess by appears preserved. Unable to rule out regional wall motion abnormality. LV EF: Left ventricular ejection fraction is estimated at 50 to 55%. DIASTOLIC: ATRIAL SEPTUM: LEFT ATRIUM: Mild dilatation. RIGHT ATRIUM: Mild dilatation. RIGHT VENTRICLE: Mild dilatation. Normal right ventricular systolic function. Pacer wire present. TRICUSPID VALVE: Normal mobility and thickness. No stenosis with trivial regurgitation. Doppler studies reveal mildly (35-45) elevated right sided pressures. RVSP 41 mmHg MITRAL VALVE: No evidence of mitral valve stenosis. Moderate mitral annular calcification. No significant mitral regurgitation noted. AORTIC VALVE: Normal trileaflet appearance. Mildly calcified aortic valve. No evidence of aortic valve stenosis. Trivial aortic regurgitation. AORTIC ROOT: Mildly dilated. Ascending aorta is mildly dilated. PULMONIC VALVE: Normal thickness and mobility. No stenosis. Trivial regurgitation. PERICARDIUM: No evidence of pericardial effusion. IVC: Collapses with inspirations. IVC is normal in size. PLEURA: CONCLUSION: 1. Left ventricular systolic function is difficult to assess but appears preserved. LVEF is estimated at 50 to 55%. 2. Mildly dilated right ventricle with normal systolic function. 3. No significant valvular dysfunction. 4. Mildly elevated right-sided pressures. 5. No pericardial effusion. Adult Echocardiography Procedure Report Left Ventricle Left Atrium Mitral Valve Right Ventricle Aorta Aortic Valve Peak Velocity (Antegrade Flow): 1.39 m/s, 1.31 m/s AoV Area (Peak Sherif): 2.25 cm2, 2.25 cm2 Peak Velocity(Antegrade Flow): 1.39 m/s Peak Gradient(Antegrade Flow): 7.74 mm[Hg] Tricuspid Valve Peak Velocity (Regurgitant Flow): 3.08 m/s Peak Velocity: 0.48 m/s, 0.48 m/s Pulmonic Valve PV Max Sherif (0.6 - 0.9 m per sec): 1.06 m/s PV Max Gradient: 4.53 mm[Hg] Right Atrium Dictated by: Daniella Easton M.D. on 02/19/2022 at 19:15 Approved by: Daniella Easton M.D. on 02/19/2022 at 19:53 Normal [facility] LIPID PROFILEon 02-10-2022 CHOL-HDL RATIO NORM SEE BELOW Normal [facility] Comment on above: Result Comment: 3.3 - 4.4 LOW RISK 4.4 - 7.1 AVERAGE RISK 7.1 - 11.0 MODERATE RISK >11.0 HIGH RISK Performed By: #### L IPID #### [facility] [address] [place] [address] Dr. Trevor Nichols Cholesterol [Mass/Vol] 171 mg/dL Normal <=200 [facility] Comment on above: Performed By: #### L IPID #### [facility] [address] [address] [address] Trevor Nichols Cholesterol in HDL [Mass/Vol] 40 mg/dL Normal 40-60 [facility] Comment on above: Performed By: #### L IPID #### [facility] [address] [address] [address] Trevor Nichols Cholesterol in LDL [Mass/Vol] 114.0 mg/dL Normal [facility] Comment on above: Performed By: #### L IPID #### [facility] [address] [place] [address] Dr. Trevor Nichols Cholesterol.total/Ch olesterol in HDL [Mass ratio] 4.3 {ratio} Normal [facility] Comment on above: Performed By: #### L IPID #### [facility] [address] [address] [address] Trevor Nichols HDL NORMAL > or = 60 mg/dl - LO W CARDIOVASCULAR RISK <40 mg/dl - HIGH CARDIOVASCULAR RISK Normal [facility] Comment on above: Performed By: #### L IPID #### [facility] [address] [place] [address] Dr. Trevor Nichols LDL CALC NORMAL SEE BELOW Normal [facility] Comment on above: Result Comment: <100 mg/dl OPTIMAL 100 - 129 mg/dl NEAR OR ABOVE OPTIMAL 130 - 159 mg/dl BORDERLINE HIGH 160 - 189 mg/dl HIGH >190 mg/dl VERY HIGH Performed By: #### L IPID #### [facility] [address] [place] [address] Dr. Trevor Nichols Triglyceride [Mass/Vol] 85 mg/dL Normal <=150 [facility] Comment on above: Performed By: #### L IPID #### [facility] [address] [place] [address] Dr. Trevor Nichols VLDL CALC 17.0 mg/dL Normal [facility] Comment on above: Performed By: #### L IPID #### [facility] [address] [place] [address] Dr. Trevor Nichols BNPon 02-05-2022 Natriuretic peptide B (Bld) [Mass/Vol] 231.0 pg/mL Normal <=900.0 [facility] Comment on above: Performed By: #### H STROPN, BNP, BMP #### [facility] [address] [place] [address] Dr. Trevor Nichols CBC W MANUAL DIFFon 02-06-20 ANISOCYTOSIS 1+ Normal [facility] Comment on above: Performed By: #### C BCNADIA #### [facility] [address] [address] [address] Trevor Nichols ATYPICAL LYMPH # Normal [facility] Comment on above: Performed By: #### C JOBY #### [facility] [address] [address] [address] Trevor Nichols ATYPICAL LYMPH % Normal [facility] Comment on above: Performed By: #### C BCNADIA #### [facility] [address] [address] [address] Trevor Nichols BAND # 0.3 103/ul Normal 0.0-0.3 [facility] Comment on above: Performed By: #### C JOBY #### [facility] [address] [place] [address] Dr. Trevor Nichols BAND % 6 % Critically high 0-5 [facility] Comment on above: Performed By: #### C JOBY #### [facility] [address] [place] [address] Dr. Trevor Nichols BASOM # 0.00 103/ul Normal 0.00-0.10 [facility] Comment on above: Performed By: #### C JOBY #### [facility] [address] [place] [address] Dr. Trevor Nichols BASOM % 0.0 % Critically low 0.2-2.0 [facility] Comment on above: Performed By: #### C JOBY #### [facility] [address] [place] [address] Dr. Trevor Nichols BLAST # Normal [facility] Comment on above: Performed By: #### C JOBY #### [facility] [address] [place] [address] Dr. Trevor Nichols BLAST % Normal [facility] Comment on above: Performed By: #### C JOBY #### [facility] [address] [place] [address] Dr. Trevor Nichols CORRECTED WBC Normal 4.0-11.0 [facility] Comment on above: Performed By: #### C JOBY #### [facility] [address] [address] [address] Trevor Nichols EOS # 0.04 103/ul Normal 0.00-0.70 [facility] Comment on above: Performed By: #### C JOBY #### [facility] [address] [place] [address] Dr. Trevor Nichols EOS% 1.0 % Normal 0.9-7.0 [facility] Comment on above: Performed By: #### C JOBY #### [facility] [address] [address] [address] Trevor Nichols HCT 36.4 % Critically low 42.0-54.0 [facility] Comment on above: Performed By: #### C OJBY #### [facility] [address] [place] [address] Dr. Trevor Nichols HGB 11.4 g/dl Critically low 14.0-18.0 [facility] Comment on above: Performed By: #### C JOBY #### [facility] [address] [place] [address] Dr. Trevor Nichols HYPOCHROMASIA SLIGHT Normal [facility] Comment on above: Performed By: #### C JOBY #### [facility] [address] [place] [address] Dr. Trevor iNchols LYMPHM # 1.19 103/ul Critically low 1.20-3.80 [facility] Comment on above: Performed By: #### C JOBY #### [facility] [address] [place] [address] Dr. Trevor Nichols LYMPHM% 27.0 % Normal 20.5-60.0 [facility] Comment on above: Performed By: #### C JOBY #### [facility] [address] [place] [address] Dr. Trevor Nichols MCH 32.5 pg Normal 25.9-34.0 [facility] Comment on above: Performed By: #### C JOBY #### [facility] [address] [place] [address] Dr. Trevor Nichols MCHC 31.3 g/dl Normal 29.9-35.2 [facility] Comment on above: Performed By: #### C JOBY #### [facility] [address] [address] [address] Trevor Nichols MCV 103.7 fL Critically high 80.0-94.0 [facility] Comment on above: Performed By: #### C JOBY #### [facility] [address] [place] [address] Dr. Trevor Nichols METAMYELOCYTE # Normal [facility] Comment on above: Performed By: #### C JOBY #### [facility] [address] [place] [address] Dr. Trevor Nichols METAMYELOCYTE % Normal [facility] Comment on above: Performed By: #### C JOBY #### [facility] [address] [place] [address] Dr. Trevor Nichols MONOM# 1.28 103/ul Critically high 0.30-0.80 [facility] Comment on above: Performed By: #### C JOBY #### [facility] [address] [place] [address] Dr. Trevor Nichols MONOM% 29.0 % Critically high 1.7-12.0 [facility] Comment on above: Performed By: #### C JOBY #### [facility] [address] [place] [address] Dr. Trevor Nichols MPV 10.5 fL Normal 9.5-13.5 [facility] Comment on above: Performed By: #### C JOBY #### [facility] [address] [place] [address] Dr. Trevor Nichols MYELOCYTE # Normal [facility] Comment on above: Performed By: #### C JOBY #### [facility] [address] [place] [address] Dr. Trevor Nichols MYELOCYTE % Normal [facility] Comment on above: Performed By: #### C JOBY #### [facility] [address] [place] [address] Dr. Trevor Nichols NRBC Normal [facility] Comment on above: Performed By: #### C JOBY #### [facility] [address] [address] [address] Trevor Nichols PLT 161 103/ul Normal 150-450 [facility] Comment on above: Performed By: #### C JOBY #### [facility] [address] [address] [address] Trevor Nichols RBC 3.51 106/ul Critically low 4.70-6.10 [facility] Comment on above: Performed By: #### C JOBY #### [facility] [address] [address] [address] Trevor Nichols RDW 16.0 % Critically high 11.0-15.0 [facility] Comment on above: Performed By: #### Brodie HEMPHILL #### [facility] [address] [address] [address] Trevor Nichols SEG # 1.63 103/ul Normal 1.40-6.50 [facility] Comment on above: Performed By: #### Brodie HEMPHILL #### [facility] [address] [address] [address] Trevor Nichols SEG % 37.0 % Critically low 43.0-75.0 [facility] Comment on above: Performed By: #### Brodie HEMPHILL #### [facility] [address] [address] [address] Trevor Nichols WBC 4.4 103/ul Normal 4.0-11.0 [facility] Comment on above: Performed By: #### Brodie HEMPHILL #### [facility] [address] [address] [address] Trevor Nichols PROF 14(COMP METB)on 022 Albumin [Mass/Vol] 3.4 g/dL Normal 3.4-5.0 [facility] Comment on above: Performed By: #### H STROPN, BNP, BMP #### [facility] [address] [address] [address] Trevor Nichols Albumin/Globulin [Mass ratio] 0.9 {ratio} Normal [facility] Comment on above: Performed By: #### H STROPN, BNP, BMP #### [facility] [address] [address] [address] Trevor Nichols ALP [Catalytic activity/Vol] 99 U/L Normal 46-116 [facility] Comment on above: Performed By: #### H STROPN, BNP, BMP #### [facility] [address] [address] [address] Trevor Nichols ALT [Catalytic activity/Vol] 18 U/L Normal 16-63 [facility] Comment on above: Performed By: #### H STROPN, BNP, BMP #### [facility] [address] [address] [address] Trevor Nichols Anion gap [Moles/Vol] 13.5 mmol/L Normal [facility] Comment on above: Performed By: #### H STROPN, BNP, BMP #### [facility] [address] [address] [address] Trevor Nichols AST [Catalytic activity/Vol] 10 U/L Critically low 15-37 [facility] Comment on above: Performed By: #### H STROPN, BNP, BMP #### [facility] [address] [address] [address] Trevor Nichols Bilirubin [Mass/Vol] 0.5 mg/dL Normal 0.2-1.0 [facility] Comment on above: Performed By: #### H STROPN, BNP, BMP #### [facility] [address] [address] [address] Trevor Nichols Calcium [Mass/Vol] 8.8 mg/dL Normal 8.5-10.1 [facility] Comment on above: Performed By: #### H STROPN, BNP, BMP #### [facility] [address] [address] [address] Trevor Nichols Chloride [Moles/Vol] 106 mmol/L Normal 98-107 [facility] Comment on above: Performed By: #### H STROPN, BNP, BMP #### [facility] [address] [address] [address] Trevor Nichols CO2 [Moles/Vol] 24.3 mmol/L Normal 21.0-32.0 [facility] Comment on above: Performed By: #### H STROPN, BNP, BMP #### [facility] [address] [address] [address] Trevor Nichols Creatinine [Mass/Vol] 1.35 mg/dL Critically high 0.70-1.30 [facility] Comment on above: Performed By: #### H STROPN, BNP, BMP #### [facility] [address] [address] [address] Trevor Nichols EGFR-AF BURMESE >60 Normal >=60 [facility] Comment on above: Performed By: #### H STROPN, BNP, BMP #### [facility] [address] [address] [address] Trevor Nichols EGFR-NON AF BURMESE 52 mL/min/1.73m2 Critically low >=60 [facility] Comment on above: Performed By: #### H STROPN, BNP, BMP #### [facility] [address] [place] [address] Dr. Trevor Nichols Globulin (S) [Mass/Vol] 3.8 g/dL Normal [facility] Comment on above: Performed By: #### H STROPN, BNP, BMP #### [facility] [address] [place] [address] Dr. Trevor Nichols Glucose [Mass/Vol] 103 mg/dL Normal 74-106 [facility] Comment on above: Performed By: #### H STROPN, BNP, BMP #### [facility] [address] [place] [address] Dr. Trevor Nichols Potassium [Moles/Vol] 3.8 mmol/L Normal 3.5-5.1 [facility] Comment on above: Performed By: #### H STROPN, BNP, BMP #### [facility] [address] [place] [address] Dr. Trevor Nichols Protein [Mass/Vol] 7.2 g/dL Normal 6.4-8.2 [facility] Comment on above: Performed By: #### H STROPN, BNP, BMP #### [facility] [address] [place] [address] Dr. Trevor Nichols Sodium [Moles/Vol] 140 mmol/L Normal 136-145 [facility] Comment on above: Performed By: #### H STROPN, BNP, BMP #### [facility] [address] [address] [address] Trevor Nichols Urea nitrogen [Mass/Vol] 22.0 mg/dL Critically high 7.0-18.0 [facility] Comment on above: Performed By: #### H STROPN, BNP, BMP #### [facility] [address] [address] [address] Trevor Nichols Urea nitrogen/Creatinine [Mass ratio] 16.3 mg/mg Normal [facility] Comment on above: Performed By: #### H STROKALEN, BNP, BMP #### [facility] [address] [place] [address] Dr. Trevor Nichols TSHon 02-05-2022 TSH 3.360 uIU/mL Normal 0.358-3.740 [facility] Comment on above: Performed By: #### H STROPN, BNP, BMP #### [facility] [address] [place] [address] Dr. Trevor Nichols XR CHEST 2 Von 02-05-2022 XR CHEST 2 V EXAM: XR CHEST 2 V HISTORY: Abnormal findings diagnostic imaging heart+coronary circulat Clinical Indication: Abnormal findings diagnostic imaging heart+coronary circulat; Comparison: September 10, 2020 FINDINGS: The cardiomediastinal silhouette is enlarged, and there is a cardiac pacemaker. No significant pleural effusions are seen. The bony structures are intact. No evidence for pneumothorax. IMPRESSION: 1. No acute cardiopulmonary disease Electronically authenticated by: ALLAN FLOREZ Date: 2022-02-05 17:03 Normal [facility] XR BONE SURVEYon 09-25-2021 XR BONE SURVEY EXAMINATION: XR BONE SURVEY HISTORY: Hypergammaglobulinemia COMPARISON: XR chest 09/10/2020, CTA chest 05/15/2021 TECHNIQUE: Two lateral projections of the skull. A lateral projection of the C-spine, T-spine and L-spine. Single view of the chest and pelvis. Single view of each humerus, forearm, femur, and tibia-fibula. FINDINGS: SKULL: No lytic lesion, periosteal reaction/thickening, fracture, or dislocation. C-SPINE: C5-6 moderate degenerative disc disease and multilevel mild degenerative facet arthropathy. No lytic lesion, periosteal reaction/thickening, fracture, or dislocation. T-SPINE: Stable T5 marked compression fracture with complete loss of vertebral body height. No lytic lesion, periosteal reaction/thickening, acute fracture, or dislocation. L-SPINE: No lytic lesion, periosteal reaction/thickening, fracture, or dislocation. CHEST: No expansile lesion, lytic lesion, or fracture. Chronic calcified granulomas within the upper lung regions. PELVIS: No lytic lesion, periosteal reaction/thickening, fracture, or dislocation. R HUMERUS: No lytic lesion, periosteal reaction/thickening, fracture, or dislocation. R FOREARM: No lytic lesion, periosteal reaction/thickening, fracture, or dislocation. L HUMERUS: No lytic lesion, periosteal reaction/thickening, fracture, or dislocation. L FOREARM: No lytic lesion, periosteal reaction/thickening, fracture, or dislocation. R FEMUR: No lytic lesion, periosteal reaction/thickening, fracture, or dislocation. R TIB/FIB: No lytic lesion, periosteal reaction/thickening, fracture, or dislocation. L FEMUR: No lytic lesion, periosteal reaction/thickening, fracture, or dislocation. L TIB/FIB: No lytic lesion, periosteal reaction/thickening, fracture, or dislocation. SOFT TISSUES: No swelling, nodules, visible mass, or radiopaque foreign body. IMPRESSION: 1. No lytic lesions suggestive of monoclonal gammopathy. Electronically authenticated by: SHAY BERNSTEIN Date: 2021-09-25 07:30 Normal [facility] PROTEIN ELECTROPHERESISon Albumin [Mass/Vol] 3.2 g/dL Normal 2.9-4.4 [facility] Comment on above: Performed By: #### P RTELEC ####[facility] [address] [address]DrJeffery Nichols Albumin/Globulin [Mass ratio] 1.1 {ratio} Normal 0.7-1.7 [facility] Comment on above: Performed By: #### P RTELEC ####[facility] [address] [address]DrJeffery Nichols Qxgcf-8-Ftcicsyz 0.3 g/dL Normal 0.0-0.4 [facility] Comment on above: Performed By: #### P RTELEC ####[facility] [address] [address]Dr. Trevor Nichols Bhdot-0-Fezmdibd 0.8 g/dL Normal 0.4-1.0 [facility] Comment on above: Performed By: #### P RTELEC ####[facility] [address] [place], [place] [address]Dr. Trevor Nichols Beta Globulin 1.0 g/dL Normal 0.7-1.3 [facility] Comment on above: Performed By: #### P RTELEC ####[facility] [address] [place], [place] [address]Dr. Trevor Nichols Gamma Globulin 0.8 g/dL Normal 0.4-1.8 [facility] Comment on above: Performed By: #### P RTELEC ####[facility] [address] [place], [place] [address]Dr. Trevor Nichols Globulin (S) [Mass/Vol] 2.9 g/dL Normal 2.2-3.9 [facility] Comment on above: Performed By: #### P RTELEC ####[facility] [address] [place], [place] [address]Dr. Trevor Nichols M-Jorge 0.1 g/dL Critically high Not Observed [facility] Comment on above: Performed By: #### P RTELEC ####[facility] [address] [place], [place] [address]DrJeffery Nichols PDF . Normal [facility] Comment on above: Performed By: #### P RTELEC ####[facility] [address] [place], [place] [address]DrJeffery Nichols Please note: Comment Normal [facility] Comment on above: Result Comment: Prot ein electrophoresis scan will follow via computer, mail, or professional shopper delivery. Performed By: #### P RTELEC ####[facility] [address] [place], [place] [address]DrJeffery Nichols Protein [Mass/Vol] 6.1 g/dL Normal 6.0-8.5 [facility] Comment on above: Performed By: #### P RTELEC ####[facility] [address] [address]Dr[address] Trevor Nichols PROF CHEM 8 (BAS METB)on Anion gap [Moles/Vol] 16.3 mmol/L Normal [facility] Comment on above: Performed By: #### H STROPN, BNP, BMP #### [facility] [address] [address] [address] Trevor Nichols Calcium [Mass/Vol] 9.1 mg/dL Normal 8.4-10.2 [facility] Comment on above: Performed By: #### H STROPN, BNP, BMP #### [facility] [address] [place] [address] Dr. Trevor Nichols Chloride [Moles/Vol] 104 mmol/L Normal 98-107 [facility] Comment on above: Performed By: #### H STROPN, BNP, BMP #### [facility] [address] [address] [address] Trevor Nichols CO2 [Moles/Vol] 23.3 mmol/L Normal 22.0-30.0 [facility] Comment on above: Performed By: #### H STROPN, BNP, BMP #### [facility] [address] [address] [address] Trevor Nichols Creatinine [Mass/Vol] 1.28 mg/dL Critically high 0.66-1.25 [facility] Comment on above: Performed By: #### H STROPN, BNP, BMP #### [facility] [address] [address] [address] Trevor Nichols EGFR-AF BURMESE >60 Normal >=60 [facility] Comment on above: Performed By: #### H STROPN, BNP, BMP #### [facility] [address] [address] [address] Trevor Nichols EGFR-NON AF BURMESE 55 mL/min/1.73m2 Critically low >=60 [facility] Comment on above: Performed By: #### H STROPN, BNP, BMP #### [facility] [address] [address] [address] Trevor Nichols Glucose [Mass/Vol] 98 mg/dL Normal 74-106 [facility] Comment on above: Performed By: #### H STROPN, BNP, BMP #### [facility] [address] [address] [address] Trevor Nichols Potassium [Moles/Vol] 3.6 mmol/L Normal 3.4-5.0 [facility] Comment on above: Performed By: #### H STROPN, BNP, BMP #### [facility] [address] [address] [address] Trevor Nichols Sodium [Moles/Vol] 140 mmol/L Normal 137-145 [facility] Comment on above: Performed By: #### H STROPN, BNP, BMP #### [facility] [address] [address] [address] Trevor Nichols Urea nitrogen [Mass/Vol] 25.0 mg/dL Critically high 9.0-20.0 [facility] Comment on above: Performed By: #### H STROPN, BNP, BMP #### [facility] [address] [address] [address] Trevor Nichols Urea nitrogen/Creatinine [Mass ratio] 19.5 mg/mg Normal [facility] Comment on above: Performed By: #### H STROPN, BNP, BMP #### [facility] [address] [address] [address] Trevor Nichols XR MODIFIED BARIUM SWALLOWon 09-05-2021 XR MODIFIED BARIUM SWALLOW EXAMINATION: XR MODIFIED BARIUM SWALLOW HISTORY: Pneumonia COMPARISON: No relevant comparison available. TECHNIQUE: A swallowing evaluation was performed with fluoroscopy in the usual manner. Standard level fluoroscopic mode of operation utilized. FINDINGS: ORAL PHASE: Normal deglutition. PHARYNGEAL PHASE: Slight spillage of solids over back of tongue during chewing. Normal swallowing of liquids. ASPIRATION: None. Mild flash penetration when swallowing thin liquid with a straw. STRUCTURE: Normal. No visible obstruction, stricture, or dilatation. OTHER: Negative. IMPRESSION: 1. Spillage of a small amount of solids over back of tongue during chewing which could lead to aspiration, however, the patient describes coughing episodes typically occur when not eating. 2. Relatively normal handling and swallowing of thin liquid except for occasional flash penetration. 3. Please see speech pathologist report for additional findings and recommendations. Electronically authenticated by: SHAY BERNSTEIN Date: 2021-09-05 10:40 Normal [facility] CULTURE SPUTUMon 08-01-2021 CULTURE SPUTUM Isolate 1 Klebsiella pneumoniae Light growth of ORGANISM 1 Klebsiella pneumoniae ANTIBIOTIC M.I.C RX STATUS Ampicillin 16 R F Ampicillin/Sulbactam 4 S F Piperacillin/Tazobactam <=4 S F Cefazolin <=4 S F Ceftazidime <=1 S F Ceftriaxone <=1 S F Ertapenem <=0.5 S F Imipenem <=0.25 S F Amikacin <=2 S F Gentamicin <=1 S F Tobramycin <=1 S F Ciprofloxacin <=0.25 S F Levofloxacin <=0.12 S F Trimethoprim/Sulfamethoxa zole <=20 S F Normal [facility] Comment on above: Performed By: #### H STROPN, BNP, BMP #### [facility] [address] [address] [address] Trevor Nichols SPUTUM GRAM STAINon 07-30-20 21 COMMENTS Normal [facility] Comment on above: Performed By: #### S PUTGS ####[facility] [address] [address]Dr. Trevor Nichols DIPHTHEROIDS Normal [facility] Comment on above: Performed By: #### S PUTGS ####[facility] [address] [address]Dr. Trevor Nichols EPITHELIALS >25 Normal [facility] Comment on above: Performed By: #### S PUTGS ####[facility] [address] [address]Dr. Trevor Nichols FUNGAL ELEMENTS Normal [facility] Comment on above: Performed By: #### S PUTGS ####[facility] [address] [id number]. Trevor Nichols GRAM NEG BACILLI RARE Normal [facility] Comment on above: Performed By: #### S PUTGS ####[facility] [address] [place], [place] [address]Kg. Trevor Nichols GRAM NEG DIPPLOCOCCI Normal [facility] Comment on above: Performed By: #### S PUTGS ####[facility] [address] [place], [place] [address]Ar. Trevor Nichols GRAM POS BACILLI MANY Normal [facility] Comment on above: Performed By: #### S PUTGS ####[facility] [address] [id number]. Trevor Simone GRAM POSITIVE COCCI MANY Normal [facility] Comment on above: Performed By: #### S PUTGS ####[facility] [address] [id number]. Trevor Simone WBC (Bld) [#/Vol] 10*3/uL Normal [facility] Comment on above: Performed By: #### S PUTGS ####[facility] [address] [id number]. Trevor Nichols ECHOCARDIO M/2D COMPLETEon 1 09-24-2020 ECHOCARDIO M/2D COMPLETE Patient: CHIKI JUAREZ Exam Date: 07/24/2021 : 1945 Gender:M Ordering : [employer] Admission #: [id number] Family : DR WILL SHERWOOD . Order #: [id number] CLICK HERE TO VIEW EXAM ECHOCARDIOGRAM REPORT PROCEDURE: CARDIO PULMONARY ECHOCARDIO M/2D COMP INDICATIONS: Dyspnea on exertion, COPD, Edema, H/O Lymphoma AND Prostate CA, H/O Radiation AND Chemo therapy COMPARISON: None. DESCRIPTION: COMPLETE ECHOCARDIOGRAM Real-time transthoracic echocardiography with 2D, M-mode, spectral and color flow Doppler performed. QUALITY: Technical quality was limited. Poor sound transmission in apical views due to lung interference. Apical views off axis. Suggest contrast agent to enhance image quality. 64 216# 118/71 HR 90 LEFT VENTRICLE: Normal chamber size. Mild concentric left ventricular hypertrophy. The interventricular septal motion is abnormal, likely due to bundle branch block. LV EF: Normal left ventricular ejection fraction, (>55%). DIASTOLIC: Grade I diastolic dysfunction. ATRIAL SEPTUM: LEFT ATRIUM: Mild dilatation. RIGHT ATRIUM: Mild dilatation. RIGHT VENTRICLE: Mild dilatation. Normal right ventricular systolic function. Pacer wire present. TRICUSPID VALVE: Normal mobility and thickness. No stenosis with mild regurgitation. Doppler studies reveal mildly (35-45) elevated right sided pressures. RVSP 37 mmHg MITRAL VALVE: Normal mobility and thickness. No evidence of mitral valve stenosis. Mild mitral annular calcification. No mitral regurgitation. AORTIC VALVE: Normal trileaflet appearance. No evidence of aortic valve stenosis. Mild focal sclerosis of the right coronary cusp. Trivial aortic regurgitation. AORTIC ROOT: The aortic root is mildly enlarged (4.0 cm). The ascending aorta is mildly enlarged (3.7 cm). The aortic arch appears normal in size. PULMONIC VALVE: Normal thickness and mobility. No stenosis. Trivial regurgitation. PERICARDIUM: No evidence of pericardial effusion. Fat pad is noted. IVC: Collapses with inspirations. IVC is normal in size. PLEURA: CONCLUSION: 1. Normal ventricular systolic function. 2. Mild diastolic dysfunction. 3. No significant valvular dysfunction. 4. Mildly elevated right sided pressures. 5. Mildly dilated aortic root and ascending aorta. 6. Technically difficult study. Dictated by: Daniella Easton M.D. on 07/24/2021 at 20:02 Approved by: Daniella Easton M.D. on 07/24/2021 at 20:08 Normal [facility] CBC W MANUAL DIFFon 10-22-20 21 ATYPICAL LYMPH # Normal [facility] Comment on above: Performed By: #### H STROPN, BNP, BMP #### [facility] [address] [place] [address] Dr. Trevor Nichols ATYPICAL LYMPH % Normal [facility] Comment on above: Performed By: #### H STROPN, BNP, BMP #### [facility] [address] [place] [address] Dr. Trevor Nichols BAND # 0.1 103/ul Normal 0.0-0.3 [facility] Comment on above: Performed By: #### H STROPN, BNP, BMP #### [facility] [address] [place] [address] Dr. Trevor Nichols BAND % 2 % Normal 0-5 [facility] Comment on above: Performed By: #### H STROPN, BNP, BMP #### [facility] [address] [place] [address] Dr. Trevor Nichols BASOM # 0.00 103/ul Normal 0.00-0.10 [facility] Comment on above: Performed By: #### H STROPN, BNP, BMP #### [facility] [address] [place] [address] Dr. Trevor Nichols BASOM % 0.0 % Critically low 0.2-2.0 [facility] Comment on above: Performed By: #### H STROPN, BNP, BMP #### [facility] [address] [place] [address] Dr. Trevor Nichols BLAST # Normal [facility] Comment on above: Performed By: #### H STROPN, BNP, BMP #### [facility] [address] [place] [address] Dr. Trevor Nichols BLAST % Normal [facility] Comment on above: Performed By: #### H STROPN, BNP, BMP #### [facility] [address] [place] [address] Dr. Trevor Nichols CORRECTED WBC Normal 4.0-11.0 [facility] Comment on above: Performed By: #### H STROPN, BNP, BMP #### [facility] [address] [place] [address] Dr. Trevor Nichols EOS # 0.06 103/ul Normal 0.00-0.70 [facility] Comment on above: Performed By: #### H STROPN, BNP, BMP #### [facility] [address] [place] [address] Dr. Trevor Nichols EOS% 1.0 % Normal 0.9-7.0 [facility] Comment on above: Performed By: #### H STROPN, BNP, BMP #### [facility] [address] [place] [address] Dr. Trevor Nichols HCT 31.6 % Critically low 42.0-54.0 [facility] Comment on above: Performed By: #### H STROPN, BNP, BMP #### [facility] [address] [place] [address] Dr. Trevor Nichols HGB 9.7 g/dl Critically low 14.0-18.0 [facility] Comment on above: Performed By: #### H STROPN, BNP, BMP #### [facility] [address] [address] [address] Trevor Nichols LYMPHM # 0.46 103/ul Critically low 1.20-3.80 [facility] Comment on above: Performed By: #### H STROPN, BNP, BMP #### [facility] [address] [address] [address] Trevor Nichols LYMPHM% 8.0 % Critically low 20.5-60.0 [facility] Comment on above: Performed By: #### H STROPN, BNP, BMP #### [facility] [address] [address] [address] Trevor Nichols MACROCYTOSIS 1+ Normal [facility] Comment on above: Performed By: #### H STROPN, BNP, BMP #### [facility] [address] [address] [address] Trevor Nichols MCH 33.6 pg Normal 25.9-34.0 [facility] Comment on above: Performed By: #### H STROPN, BNP, BMP #### [facility] [address] [address] [address] Trevor Nichols MCHC 30.7 g/dl Normal 29.9-35.2 [facility] Comment on above: Performed By: #### H STROPN, BNP, BMP #### [facility] [address] [address] [address] Trevor Nichols MCV 109.3 fL Critically high 80.0-94.0 [facility] Comment on above: Performed By: #### H STROPN, BNP, BMP #### [facility] [address] [address] [address] Trevor Nichols METAMYELOCYTE # 0.1 103/ul Normal [facility] Comment on above: Performed By: #### H STROPN, BNP, BMP #### [facility] [address] [address] [address] Trevor Nichols METAMYELOCYTE % 2 % Normal [facility] Comment on above: Performed By: #### H STROPN, BNP, BMP #### [facility] [address] [address] [address] Trevor Nichols MONOM# 2.22 103/ul Critically high 0.30-0.80 [facility] Comment on above: Performed By: #### H STROPN, BNP, BMP #### [facility] [address] [address] [address] Trevor Nichols MONOM% 39.0 % Critically high 1.7-12.0 [facility] Comment on above: Performed By: #### H STROPN, BNP, BMP #### [facility] [address] [place] [address] Dr. Trevor Nichols MPV 9.4 fL Critically low 9.5-13.5 [facility] Comment on above: Performed By: #### H STROPN, BNP, BMP #### [facility] [address] [place] [address] Dr. Trevor Nichols MYELOCYTE # 0.3 103/ul Normal [facility] Comment on above: Performed By: #### H STROPN, BNP, BMP #### [facility] [address] [place] [address] Dr. Trevor Nichols MYELOCYTE % 6 % Normal [facility] Comment on above: Performed By: #### H STROPN, BNP, BMP #### [facility] [address] [address] [address] Trevor Nichols NRBC Normal [facility] Comment on above: Performed By: #### H STROPN, BNP, BMP #### [facility] [address] [address] [address] Trevor Nichols PLT 202 103/ul Normal 150-450 [facility] Comment on above: Performed By: #### H STROPN, BNP, BMP #### [facility] [address] [place] [address] Dr. Trevor Nichols RBC 2.89 106/ul Critically low 4.70-6.10 [facility] Comment on above: Performed By: #### H STROPN, BNP, BMP #### [facility] [address] [address] [address] Trevor Nichols RDW 15.4 % Critically high 11.0-15.0 [facility] Comment on above: Performed By: #### H STROPN, BNP, BMP #### [facility] [address] [address] [address] Trevor Nichols SEG # 2.39 103/ul Normal 1.40-6.50 [facility] Comment on above: Performed By: #### H STROPN, BNP, BMP #### [facility] [address] [address] [address] Trevor Nichols SEG % 42.0 % Critically low 43.0-75.0 [facility] Comment on above: Performed By: #### H STROPN, BNP, BMP #### [facility] [address] [address] [address] Trevor Nichols WBC 5.7 103/ul Normal 4.0-11.0 [facility] Comment on above: Performed By: #### H STROPN, BNP, BMP #### [facility] [address] [address] [address] Trevor Nichols PROF CHEM 8 (BAS METB)on Anion gap [Moles/Vol] 13.1 mmol/L Normal [facility] Comment on above: Performed By: #### B MP ####[facility] [address] [address]Dr. Trevor Nichols Calcium [Mass/Vol] 8.8 mg/dL Normal 8.4-10.2 [facility] Comment on above: Performed By: #### B MP ####[facility] [address] [place] [id number]. Trevor Nichols Chloride [Moles/Vol] 104 mmol/L Normal 98-107 [facility] Comment on above: Performed By: #### B MP ####[facility] [address] [address]Dr. Trevor Nichols CO2 [Moles/Vol] 24.1 mmol/L Normal 22.0-30.0 [facility] Comment on above: Performed By: #### B MP ####[facility] [address] [place] [id number]. Trevor Nichols Creatinine [Mass/Vol] 1.26 mg/dL Critically high 0.66-1.25 [facility] Comment on above: Performed By: #### B MP ####[facility] [address] [place] [id number]. Vivifrancie Simone EGFR-AF BURMESE >60 Normal >=60 [facility] Comment on above: Performed By: #### B MP ####[facility] [address] [place] [id number]. Trevor Nichols EGFR-NON AF BURMESE 56 mL/min/1.73m2 Critically low >=60 [facility] Comment on above: Performed By: #### B MP ####[facility] [address] [place], [place] [address]Dr. Trevor Nichols Glucose [Mass/Vol] 98 mg/dL Normal 74-106 [facility] Comment on above: Performed By: #### B MP ####[facility] [address] [place] [id number]. Trevor Nichols Potassium [Moles/Vol] 4.2 mmol/L Normal 3.4-5.0 [facility] Comment on above: Performed By: #### B MP ####[facility] [address] [address]Dr. Trevor Nichols Sodium [Moles/Vol] 137 mmol/L Normal 137-145 [facility] Comment on above: Performed By: #### B MP ####[facility] [address] [place] [id number]. Trevor Nichols Urea nitrogen [Mass/Vol] 20.0 mg/dL Normal 9.0-20.0 [facility] Comment on above: Performed By: #### B MP ####[facility] [address] [place] [id number]. Trevor Nichols Urea nitrogen/Creatinine [Mass ratio] 15.9 mg/mg Normal [facility] Comment on above: Performed By: #### B MP ####[facility] [address] [address]Dr. Trevor Simone CBC AUTO DIFFon 05-16-2021 BASO # 0.0 103/ul Normal 0.0-0.1 [facility] Comment on above: Performed By: #### C BC ####[facility] [address] [place], [place] [address]Dr. Trevor Nichols Basophils/100 WBC (Bld) 0.2 % Normal 0.2-2.0 [facility] Comment on above: Performed By: #### C BC ####[facility] [address] [place], [place] [address]Dr. Trevor Nichols EO # 0.0 103/ul Normal 0.0-0.7 [facility] Comment on above: Performed By: #### C BC ####[facility] [address] [place], [place] [address]Dr. Trevor Nichols Eosinophils/100 WBC (Bld) 0.0 % Critically low 0.9-7.0 [facility] Comment on above: Performed By: #### C BC ####[facility] [address] [place], [place] [address]Dr. Trevor Nichols Erythrocyte distribution width (RBC) [Ratio] 15.1 % Critically high 11.0-15.0 [facility] Comment on above: Performed By: #### C BC ####[facility] [address] [place], [place] [address]Dr. Trevor Nichols Hematocrit (Bld) [Volume fraction] 32.9 % Critically low 42.0-54.0 [facility] Comment on above: Performed By: #### C BC ####[facility] [address] [place], [place] [address]Dr. Trevor Nichols Hemoglobin (Bld) [Mass/Vol] 10.5 g/dL Critically low 14.0-18.0 [facility] Comment on above: Performed By: #### C BC ####[facility] [address] [place], [place] [address]Dr. Trevor Nichols IG # 0.29 10e3/ul Critically high 0.00-0.03 [facility] [place] Comment on above: Performed By: #### C BC ####[facility] [address] [place] [address]Dr. Trevor Nichols IG % 6.5 % Critically high 0.0-0.5 [facility] Comment on above: Performed By: #### C BC ####[facility] [address] [place] [address]DrJeffery Nichols LYMPH # 0.2 103/ul Critically low 1.2-3.8 [facility] Comment on above: Performed By: #### C BC ####[facility] [address] [place] [address]DrJeffery Nichols Lymphocytes/100 WBC (Bld) 5.4 % Critically low 20.5-60.0 [facility] Comment on above: Performed By: #### C BC ####[facility] [address] [place] [address]Dr. Trevor Nichols MANUAL DIFF REQ NO Normal [facility] Comment on above: Performed By: #### C BC ####[facility] [address] [address]Dr. Trevor Nichols MCH (RBC) [Entitic mass] 33.8 pg Normal 25.9-34.0 [facility] Comment on above: Performed By: #### C BC ####[facility] [address] [address]Dr. Trevor Nichols MCHC (RBC) [Mass/Vol] 31.9 g/dL Normal 29.9-35.2 [facility] Comment on above: Performed By: #### C BC ####[facility] [address] [place] [address]DrJeffery Nichols MCV (RBC) [Entitic vol] 105.8 fL Critically high 80.0-94.0 [facility] Comment on above: Performed By: #### C BC ####[facility] [address] [place], [place] [address]DrJeffery Nichols MONO # 0.3 103/ul Normal 0.3-0.8 [facility] Comment on above: Performed By: #### C BC ####[facility] [address] [place] [address]Dr. Trevor Nichols Monocytes/100 WBC (Bld) 7.6 % Normal 1.7-12.0 [facility] Comment on above: Performed By: #### C BC ####[facility] [address] [place] [address]Dr. Trevor Nichols NEUT # 3.6 103/ul Normal 1.4-6.5 [facility] Comment on above: Performed By: #### C BC ####[facility] [address] [place] [address]Dr. Trevor Nichols Neutrophils/100 WBC (Bld) 80.3 % Critically high 43.0-75.0 [facility] Comment on above: Performed By: #### C BC ####[facility] [address] [place], [place] [address]Dr. Trevor Nichols Platelet mean volume (Bld) [Entitic vol] 10.2 fL Normal 9.5-13.5 [facility] Comment on above: Performed By: #### C BC ####[facility] [address] [address]Dr. Trevor Nichols PLT 192 103/ul Normal 150-450 [facility] Comment on above: Performed By: #### C BC ####[facility] [address] [place] [address]Dr. Trevor Nichols RBC 3.11 106/ul Critically low 4.70-6.10 [facility] Comment on above: Performed By: #### C BC ####[facility] [address] [place] [id number]. Trevor Nichols WBC 4.5 103/ul Normal 4.0-11.0 [facility] Comment on above: Performed By: #### C BC ####[facility] [address] [place] [id number] Trevor Nichols CT STROKE HEAD WOon 05-16-[address] STROKE HEAD WO EXAMINATION: CT STRO KE HEAD WO, 05/16/2021 2:16 PM EDT HISTORY: Anisocoria ; headache, left pupil larger than right COMPARISON: CT head 06/25/2020 TECHNIQUE: CT scan of the head was performed without IV contrast. CT dose reduction technique was used, including Automated Exposure Control. 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 No edema, hemorrhage, mass, acute infarction, or inappropriate atrophy. CSF SPACES: No hydrocephalus, subarachnoid hemorrhage, or mass. Appropriate for age. SKULL: No fracture, mass, or other significant visible lesion. SINUSES: No significant mucosal thickening or fluid on the limited views. ORBITS: No appreciable abnormality on the limited views. OTHER: Negative IMPRESSION: 1. No intracranial hemorrhage or appreciable acute abnormality. Findings discussed with Muriel in the emergency department via telephone, to be relayed to Dr. Paredes. 2. Stable old lacune infarction within the right basal ganglia. 3. Stable age-related chronic changes. Electronically authenticated by: SHAY BERNSTEIN Date: 2021-05-16 14:45 Normal [facility] CTA NECK WO W CONon 05-16-20 CTA NECK WO W CON EXAMINATION: CTA HEA D WO W CON, CTA NECK WO W CON HISTORY: Anisocoria COMPARISON: No relevant comparison available. TECHNIQUE: Axial, Coronal, and Sagittal CT images with IV contrast. Multi-planar/3-D imaging to optimize visualization of vascular anatomy. Percent stenosis is based on NASCET criteria. Dose reduction techniques were achieved by using automated exposure control and/or adjustment of mA and/or kV according to patient size and/or use of iterative reconstruction technique. FINDINGS: HEAD: VASCULATURE: Mild-moderate atherosclerotic narrowing of the suprasellar carotid arteries bilaterally. Unremarkable anterior, middle, and posterior cerebral arteries. VENTRICLES: Normal for age. No enlargement or displacement. CEREBRUM: Old lacunar infarction within the right basal ganglia.. No excessive atrophy, mass, or hemorrhage, or abnormal enhancement. CEREBELLUM: Normal for age. No excessive atrophy, mass, or hemorrhage, or abnormal enhancement. BRAINSTEM: Normal for age. No excessive atrophy, mass, or hemorrhage, or abnormal enhancement. BASAL CISTERNS: Normal. No subarachnoid hemorrhage or effacement. SKULL: Negative. NECK: RIGHT INTERNAL CAROTID: No hemodynamically significant stenosis or dissection. EXTERNAL CAROTID: No hemodynamically significant stenosis or dissection. COMMON CAROTID: No hemodynamically significant stenosis or dissection. VERTEBRAL: No hemodynamically significant stenosis or dissection. LEFT INTERNAL CAROTID: No hemodynamically significant stenosis or dissection. EXTERNAL CAROTID: No hemodynamically significant stenosis or dissection. COMMON CAROTID: No hemodynamically significant stenosis or dissection. VERTEBRAL: Mild atherosclerotic narrowing at base of skull. 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 IMPRESSION: 1. 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 No suspicious findings to account for patient's symptoms. 2. Mild atherosclerotic narrowing of the left vertebral artery. Electronically authenticated by: SHAY BERNSTEIN Date: 2021-05-16 16:53 Normal [facility] IRON AND TIBCon 05-16-2021 % SATURATION 16.2 % Normal [facility] Comment on above: Performed By: #### F ETIBC, B12FOL #### [facility] [address] [place] [address] Dr. Trevor Nichols Iron [Mass/Vol] 32.0 ug/dL Critically low 49.0-181.0 [facility] Comment on above: Performed By: #### F ETIBC, B12FOL #### [facility] [address] [place] [address] Dr. Trevor Nichols TIBC DIRECT 198.0 ug/dL Critically low 261.0-497.0 [facility] [place] Comment on above: Performed By: #### F ETIBC, B12FOL #### [facility] [address] [place] [address] Dr. Trevor Nichols PROF CHEM 8 (BAS METB)on Anion gap [Moles/Vol] 14.9 mmol/L Normal [facility] Comment on above: Performed By: #### B MP #### [facility] [address] [place] [address] Dr. Trevor Nichols Calcium [Mass/Vol] 9.2 mg/dL Normal 8.4-10.2 [facility] Comment on above: Performed By: #### B MP #### [facility] [address] [place] [address] Dr. Trevor Nichols Chloride [Moles/Vol] 105 mmol/L Normal 98-107 [facility] Comment on above: Performed By: #### B MP #### [facility] [address] [address] [address] Trevor Nichols CO2 [Moles/Vol] 21.6 mmol/L Critically low 22.0-30.0 [facility] Comment on above: Performed By: #### B MP #### [facility] [address] [address] [address] Trevor Nichols Creatinine [Mass/Vol] 1.36 mg/dL Critically high 0.66-1.25 [facility] [facility] Comment on above: Performed By: #### B MP #### [facility] [address] [place] [address] Dr. Trevor Nichols EGFR-AF BURMESE >60 Normal >=60 [facility] Comment on above: Performed By: #### B MP #### [facility] [address] [place] [address] Dr. Trevor Nichols EGFR-NON AF BURMESE 51 mL/min/1.73m2 Critically low >=60 [facility] Comment on above: Performed By: #### B MP #### [facility] [address] [place] [address] Dr. Trevor Nichols Glucose [Mass/Vol] 206 mg/dL Critically high 74-106 [facility] Comment on above: Performed By: #### B MP #### [facility] [address] [place] [address] Dr. Trevor Nichols Potassium [Moles/Vol] 4.5 mmol/L Normal 3.4-5.0 [facility] Comment on above: Performed By: #### B MP #### [facility] [address] [address] [address] Trevor Nichols Sodium [Moles/Vol] 137 mmol/L Normal 137-145 [facility] Comment on above: Performed By: #### B MP #### [facility] [address] [address] [address] Trevor Nichols Urea nitrogen [Mass/Vol] 26.0 mg/dL Critically high 9.0-20.0 [facility] Comment on above: Performed By: #### B MP #### [facility] [address] [place] [address] Dr. Trevor Nichols Urea nitrogen/Creatinine [Mass ratio] 19.1 mg/mg Normal [facility] Comment on above: Performed By: #### B MP #### [facility] [address] [place] [address] Dr. Trevor Nichols VIT B12 AND FOLATEon 021 Cobalamin (Vitamin B12) [Mass/Vol] pg/mL Critically high 239.0-931.0 [facility] Comment on above: Performed By: #### F ETIBC, B12FOL #### [facility] [address] [place] [address] Dr. Trevor Nichols FOLATE 15.40 ng/mL Normal >=2.76 [facility] Comment on above: Performed By: #### F ETIBC, B12FOL #### [facility] [address] [place] [address] Dr. Trevor Nichols BNPon 05-15-2021 Natriuretic peptide B (Bld) [Mass/Vol] 379.0 pg/mL Normal <=900.0 [facility] Comment on above: Performed By: #### H STROPN, BNP, BMP #### [facility] [address] [place] [address] Dr. Trevor Nichols CBC W MANUAL DIFFon 05-15-20 21 ATYPICAL LYMPH # Normal [facility] Comment on above: Performed By: #### H STROPN, BNP, BMP #### [facility] [address] [place] [address] Dr. Trevor Nichols ATYPICAL LYMPH % Normal [facility] Comment on above: Performed By: #### H STROPN, BNP, BMP #### [facility] [address] [place] [address] Dr. Trevor Nichols BAND # 0.0 103/ul Normal 0.0-0.3 [facility] Comment on above: Performed By: #### H STROPN, BNP, BMP #### [facility] [address] [address] [address] Trevor Nichols BAND % 1 % Normal 0-5 [facility] Comment on above: Performed By: #### H STROPN, BNP, BMP #### [facility] [address] [address] [address] Trevor Nichols BASOM # 0.00 103/ul Normal 0.00-0.10 [facility] Comment on above: Performed By: #### H STROPN, BNP, BMP #### [facility] [address] [place] [address] Dr. Trevor Nichols BASOM % 0.0 % Critically low 0.2-2.0 [facility] Comment on above: Performed By: #### H STROPN, BNP, BMP #### [facility] [address] [place] [address] Dr. Trevor Nichols BLAST # Normal [facility] Comment on above: Performed By: #### H STROPN, BNP, BMP #### [facility] [address] [place] [address] Dr. Trevor Nichols BLAST % Normal [facility] Comment on above: Performed By: #### H STROPN, BNP, BMP #### [facility] [address] [place] [address] Dr. Trevor Nichols BRENDA CELLS SLIGHT Normal [facility] Comment on above: Performed By: #### H STROPN, BNP, BMP #### [facility] [address] [place] [address] Dr. Trevor Nichols CORRECTED WBC Normal 4.0-11.0 [facility] Comment on above: Performed By: #### H STROPN, BNP, BMP #### [facility] [address] [place] [address] Dr. Trevor Nichols EOS # 0.05 103/ul Normal 0.00-0.70 [facility] Comment on above: Performed By: #### H STROPN, BNP, BMP #### [facility] [address] [place] [address] Dr. Trevor Nichols EOS% 1.0 % Normal 0.9-7.0 [facility] Comment on above: Performed By: #### H STROPN, BNP, BMP #### [facility] [address] [address] [address] Trevor Nichols HCT 32.5 % Critically low 42.0-54.0 [facility] Comment on above: Performed By: #### H STROPN, BNP, BMP #### [facility] [address] [address] [address] Trevor Nichols HGB 10.5 g/dl Critically low 14.0-18.0 [facility] Comment on above: Performed By: #### H STROPN, BNP, BMP #### [facility] [address] [address] [address] Trevor Nichols HYPOCHROMASIA 2+ Normal [facility] Comment on above: Performed By: #### H STROPN, BNP, BMP #### [facility] [address] [address] [address] Trevor Nichols LYMPHM # 1.03 103/ul Critically low 1.20-3.80 [facility] Comment on above: Performed By: #### H STROPN, BNP, BMP #### [facility] [address] [address] [address] Trevor Nichols LYMPHM% 22.0 % Normal 20.5-60.0 [facility] Comment on above: Performed By: #### H STROPN, BNP, BMP #### [facility] [address] [address] [address] Trevor Nichols MACROCYTOSIS 2+ Normal [facility] Comment on above: Performed By: #### H STROPN, BNP, BMP #### [facility] [address] [address] [address] Trevor Nichols MCH 34.5 pg Critically high 25.9-34.0 [facility] Comment on above: Performed By: #### H STROPN, BNP, BMP #### [facility] [address] [address] [address] Trevor Nichols MCHC 32.3 g/dl Normal 29.9-35.2 [facility] Comment on above: Performed By: #### H STROPN, BNP, BMP #### [facility] [address] [address] [address] Trevor Nichols MCV 106.9 fL Critically high 80.0-94.0 [facility] Comment on above: Performed By: #### H STROPN, BNP, BMP #### [facility] [address] [address] [address] Trevor Nichols METAMYELOCYTE # Normal [facility] Comment on above: Performed By: #### H STROPN, BNP, BMP #### [facility] [address] [address] [address] Trevor Nichols METAMYELOCYTE % Normal [facility] Comment on above: Performed By: #### H STROPN, BNP, BMP #### [facility] [address] [place] [address] Dr. Trevor Nichols MONOM# 1.74 103/ul Critically high 0.30-0.80 [facility] Comment on above: Performed By: #### H STROPN, BNP, BMP #### [facility] [address] [place] [address] Dr. Trevor Nichols MONOM% 37.0 % Critically high 1.7-12.0 [facility] Comment on above: Performed By: #### H STROPN, BNP, BMP #### [facility] [address] [place] [address] Dr. Trevor Nichols MPV 10.8 fL Normal 9.5-13.5 [facility] Comment on above: Performed By: #### H STROPN, BNP, BMP #### [facility] [address] [place] [address] Dr. Trevor Nichols MYELOCYTE # Normal [facility] Comment on above: Performed By: #### H STROPN, BNP, BMP #### [facility] [address] [place] [address] Dr. Trevor Nichols MYELOCYTE % Normal [facility] Comment on above: Performed By: #### H STROPN, BNP, BMP #### [facility] [address] [place] [address] Dr. Trevor Nichols NRBC Normal [facility] Comment on above: Performed By: #### H STROPN, BNP, BMP #### [facility] [address] [address] [address] Trevor Nichols PLT 222 103/ul Normal 150-450 [facility] Comment on above: Performed By: #### H STROPN, BNP, BMP #### [facility] [address] [address] [address] Trevor Nichols POIKILOCYTOSIS 2+ Normal [facility] Comment on above: Performed By: #### H STROPN, BNP, BMP #### [facility] [address] [address] [address] Trevor Nichols RBC 3.04 106/ul Critically low 4.70-6.10 [facility] Comment on above: Performed By: #### H STROPN, BNP, BMP #### [facility] [address] [place] [address] Dr. Trevor Nichols RDW 15.6 % Critically high 11.0-15.0 [facility] Comment on above: Performed By: #### H STROPN, BNP, BMP #### [facility] [address] [address] [address] Trevor Nichols SEG # 1.83 103/ul Normal 1.40-6.50 [facility] Comment on above: Performed By: #### H STROPN, BNP, BMP #### [facility] [address] [address] [address] Trevor Nichols SEG % 39.0 % Critically low 43.0-75.0 [facility] Comment on above: Performed By: #### H STROPN, BNP, BMP #### [facility] [address] [address] [address] Trevor Nichols TARGET CELLS 1+ Normal [facility] Comment on above: Performed By: #### H STROPN, BNP, BMP #### [facility] [address] [address] [address] Trevor Nichols TEAR DROP CELLS SLIGHT Normal [facility] Comment on above: Performed By: #### H STROPN, BNP, BMP #### [facility] [address] [place], [place] [address] Dr. Trevor Nichols WBC 4.7 103/ul Normal 4.0-11.0 [facility] Comment on above: Performed By: #### H STROPN, BNP, BMP #### [facility] [address] [place], [place] [address] Dr. Trevor Nichols CTA CHEST WO W CONon 021 CTA CHEST WO W CON EXAMINATION: CTA VIBHA ST WO W CON HISTORY: Chronic shortness of breath, worsening in the past 2 weeks. COMPARISON: None. TECHNIQUE: CT angiography of the pulmonary arteries following the administration of intravenous contrast. Coronal and sagittal MIP (maximum intensity projection) images were performed. Dose reduction techniques were achieved by using automated exposure control and/or adjustment of mA and/or kV according to patient size and/or use of iterative reconstruction technique. FINDINGS: The timing of bolus is acceptable. There is breathing motion artifact. There are no filling defects in the more central vessels to suggest pulmonary embolism. The smaller peripheral vessels cannot be reliably evaluated. The heart is normal in size. Central pulmonary vessels are marginally distended. Calcified and noncalcified plaque is seen in the aorta. There is no mass or pathologic adenopathy mediastinum or bar. The lungs are well-inflated and show scattered chronic fibrotic changes. There are also scattered areas of groundglass attenuation. No pleural effusions are seen. No endobronchial or endotracheal lesions are seen. Limited evaluation of the upper abdomen is unremarkable. No suspicious or destructive bone lesions are seen. IMPRESSION: No evidence of pulmonary embolism, although the smaller peripheral vessels cannot be reliably evaluated. There are chronic changes in both lungs. There is no definite evidence of an acute process in the lungs, although evaluation of lungs is limited due to breathing motion artifact. Atherosclerotic changes. Electronically authenticated by: RAY SAWANT Date: 2021-05-15 11:15 Normal [facility] CULTURE BLOODon 05-15-2021 Microscopic examination of blood, culture Culture Observations: No growth at 5 days. Normal [facility] Comment on above: Performed By: #### H STROPN, BNP, BMP #### [facility] [address] [place], [place] [address] Dr. Trevor Nichols Covid-19 PCR (CVDTBH)on 04-18 SARS-CoV-2 (COVID-19) RNA DEVIN+probe Ql (Unsp spec) Not detected Normal NOT DETECTED [facility] Comment on above: Result Comment: When diagnostic testing is negative, the possibility of a false negative should be considered in the context of a patient's recent exposures and the presence of clinical signs and symptoms consistent with SARS-CoV-2. This test is not yet approved or cleared by the [place] Food and Drug Administration (FDA). This test was developed by [employer], [place], [place]. The performance characteristics of this test were validated by [facility]. The results are not intended to be used as the sole means for clinical diagnosis or patient management decisions. [facility] is authorized under Clinical Laboratory Improvement Amendments (CLIA) to perform high- complexity testing. Performed By: #### H STROPN, BNP, BMP #### [facility] [address], [place] [address] Dr. Trevor Nichols FREE T3on 05-15-2021 FREE T3 1.66 pg/mlL Critically low 2.77-5.27 [facility] Comment on above: Performed By: #### T SH, FT3 ####[facility] [address] [address]Dr. Trevor Nichols FREE T4on 05-15-2021 Free T4 [Mass/Vol] 1.06 ng/dL Normal 0.78-2.19 [facility] Comment on above: Performed By: #### F T4 ####[facility] [address] [place], [place] [address]Dr. Trevor Nichols LACTATE/LACTIC ACIDon 2020 Lactate [Moles/Vol] 1.2 mmol/L Normal 0.7-2.0 [facility] Comment on above: Performed By: #### L ACT ####[facility] [address] [address]Dr. Trevor Nichols Lactate [Moles/Vol] 1.5 mmol/L Normal 0.7-2.0 [facility] Comment on above: Performed By: #### L ACT ####[facility] [address] [address]Dr. Trevor Nichols PROF CHEM 8 (BAS METB)on Anion gap [Moles/Vol] 12.5 mmol/L Normal [facility] Comment on above: Performed By: #### H STROPN, BNP, BMP #### [facility] [address] [address] [address] Trevor Nichols Calcium [Mass/Vol] 8.4 mg/dL Normal 8.4-10.2 [facility] Comment on above: Performed By: #### H STROPN, BNP, BMP #### [facility] [address] [address] [address] Trevor Nichols Chloride [Moles/Vol] 106 mmol/L Normal 98-107 [facility] Comment on above: Performed By: #### H STROPN, BNP, BMP #### [facility] [address] [address] [address] Trevor Nichols CO2 [Moles/Vol] 24.8 mmol/L Normal 22.0-30.0 [facility] Comment on above: Performed By: #### H STROPN, BNP, BMP #### [facility] [address] [address] [address] Trevor Nichols Creatinine [Mass/Vol] 1.37 mg/dL Critically high 0.66-1.25 [facility] Comment on above: Performed By: #### H STROPN, BNP, BMP #### [facility] [address] [address] [address] Trevor Nichols EGFR-AF BURMESE >60 Normal >=60 [facility] Comment on above: Performed By: #### H STROPN, BNP, BMP #### [facility] [address] [address] [address] Trevor Nichols EGFR-NON AF BURMESE 51 mL/min/1.73m2 Critically low >=60 [facility] Comment on above: Performed By: #### H STROPN, BNP, BMP #### [facility] [address] [address] [address] Trevor Nichols Glucose [Mass/Vol] 114 mg/dL Critically high 74-106 [facility] Comment on above: Performed By: #### H STROPN, BNP, BMP #### [facility] [address] [place] [address] Dr. Trevor Nichols Potassium [Moles/Vol] 4.4 mmol/L Normal 3.4-5.0 [facility] Comment on above: Performed By: #### H STROPN, BNP, BMP #### [facility] [address] [place] [address] Dr. Trevor Nichols Sodium [Moles/Vol] 139 mmol/L Normal 137-145 [facility] Comment on above: Performed By: #### H STROPN, BNP, BMP #### [facility] [address] [place] [address] Dr. Trevor Nichols Urea nitrogen [Mass/Vol] 20.0 mg/dL Normal 9.0-20.0 [facility] Comment on above: Performed By: #### H STROPN, BNP, BMP #### [facility] [address] [place] [address] Dr. Trevor Nichols Urea nitrogen/Creatinine [Mass ratio] 14.6 mg/mg Normal [facility] Comment on above: Performed By: #### H STROPN, BNP, BMP #### [facility] [address] [place] [address] Dr. Trevor Nichols TROPONIN, HIGH SENSITIVITYon 05-15-2021 HSTROP 7.1 pg/mL Normal 4.0-42.2 [facility] Comment on above: Result Comment: CUT- OFF POINTS HAVE BEEN ESTABLISHED BASED ON THE FOURTH UNIVERSAL DEFINITIONS OF MYOCARDIAL INFARCTION. THE UPPER REFERENCE LIMIT (URL) OF TROPONIN, DEFINED THE 99TH PERCENTILE OF cTnI DISTRIBUTION IN A REFERENCE POPULATION, HAS BEEN CONFIRMED THE DECISION THRESHOLD FOR LA DIAGNOSIS. Performed By: #### H STROPN, BNP, BMP #### [facility] [address] [place] [address] Dr. Trevor Nichols TSHon 05-15-2021 TSH 1.972 uIU/mL Normal 0.470-4.680 [facility] Comment on above: Performed By: #### T SH, FT3 ####[facility] [address] [id number] Trevor Nichols TSH RANGE SEE BELOW Normal [facility] Comment on above: Result Comment: <0.3 4 UIU/ml HYPERTHYROID 0.34-5.60 UIU/ml EUTHYROID >5.60 UIU/ml HYPOTHYROID Performed By: #### T SH, FT3 ####[facility] [address] [id number]. Trevor Nichols D-DIMERon 05-14-2021 D-DIMER 0.76 mg/L FEU Critically high 0.19-0.50 [facility] Comment on above: Performed By: #### H STROPN, BNP, BMP #### [facility] [address] [address] [address] Trevor Nichols D-DIMER COMMENTS SEE BELOW Normal [facility] Comment on above: Result Comment: Incr eases in D-Dimer concentration observed with thromboembolic events can be variable due to localization, size, and age of the thrombus. Therefore, a thromboembolic event cannot be diagnosed with certainty on the basis of the reference range. D-Dimers may also be elevated for a variety of disorders including: advanced age, , coronary disease, cancer, liver disease, infection, inflammation, hematoma, DIC, trauma, post-surgery, diabetes, thrombolytic or anticoagulant therapy, stress, and generalized hospitalization. Performed By: #### H STROPN, BNP, BMP #### [facility] [address] [address] [address] Trevor Nichols PROF CHEM 8 (BAS METB)on Anion gap [Moles/Vol] 12.0 mmol/L Normal [facility] Comment on above: Performed By: #### H STROPN, BNP, BMP #### [facility] [address] [address] [address] Trevor Nichols Calcium [Mass/Vol] 8.5 mg/dL Normal 8.4-10.2 [facility] Comment on above: Performed By: #### H STROPN, BNP, BMP #### [facility] [address] [address] [address] Trevor Nichols Chloride [Moles/Vol] 106 mmol/L Normal 98-107 [facility] Comment on above: Performed By: #### H STROPN, BNP, BMP #### [facility] [address] [address] [address] Trevor Nichols CO2 [Moles/Vol] 25.0 mmol/L Normal 22.0-30.0 [facility] Comment on above: Performed By: #### H STROPN, BNP, BMP #### [facility] [address] [address] [address] Trevor Nichols Creatinine [Mass/Vol] 1.61 mg/dL Critically high 0.66-1.25 [facility] Comment on above: Performed By: #### H STROPN, BNP, BMP #### [facility] [address] [place] [address] Dr. Trevor Nichols EGFR-AF BURMESE 51 mL/min/1.73m2 Critically low >=60 [facility] Comment on above: Performed By: #### H STROPN, BNP, BMP #### [facility] [address] [place] [address] Dr. Trevor Nichols EGFR-NON AF BURMESE 42 mL/min/1.73m2 Critically low >=60 [facility] Comment on above: Performed By: #### H STROPN, BNP, BMP #### [facility] [address] [place] [address] Dr. Trevor Nichols Glucose [Mass/Vol] 115 mg/dL Critically high 74-106 [facility] Comment on above: Performed By: #### H STROPN, BNP, BMP #### [facility] [address] [place] [address] Dr. Trevor Nichols Potassium [Moles/Vol] 4.0 mmol/L Normal 3.4-5.0 [facility] Comment on above: Performed By: #### H STROPN, BNP, BMP #### [facility] [address] [place] [address] Dr. Trevor Nichols Sodium [Moles/Vol] 139 mmol/L Normal 137-145 [facility] Comment on above: Performed By: #### H STROPN, BNP, BMP #### [facility] [address] [place], [place] [address] Dr. Trevor Nichols Urea nitrogen [Mass/Vol] 20.0 mg/dL Normal 9.0-20.0 [facility] Comment on above: Performed By: #### H STROPN, BNP, BMP #### [facility] [address] [address] [address] Trevor Nichols Urea nitrogen/Creatinine [Mass ratio] 12.4 mg/mg Normal [facility] Comment on above: Performed By: #### H STROPN, BNP, BMP #### [facility] [address] [address] [address] Trevor Nichols PROF CHEM 8 (BAS METB)on Anion gap [Moles/Vol] 19.5 mmol/L Normal [facility] Comment on above: Performed By: #### B MP ####[facility] [address] [address]Dr. Trevor Nichols Calcium [Mass/Vol] 9.1 mg/dL Normal 8.4-10.2 [facility] Comment on above: Performed By: #### B MP ####[facility] [address] [address]Dr. Trevor Nichols Chloride [Moles/Vol] 104 mmol/L Normal 98-107 [facility] Comment on above: Performed By: #### B MP ####[facility] [address] [address]Dr. Trevor Nichols CO2 [Moles/Vol] 19.6 mmol/L Critically low 22.0-30.0 [facility] Comment on above: Performed By: #### B MP ####[facility] [address] [address]DrJeffery Nichols Creatinine [Mass/Vol] 1.69 mg/dL Critically high 0.66-1.25 [facility] Comment on above: Performed By: #### B MP ####[facility] [address] [address]DrJeffery Nichols EGFR-AF BURMESE 48 mL/min/1.73m2 Critically low >=60 [facility] Comment on above: Performed By: #### B MP ####[facility] [address] [address]Dr. Trevor Nichols EGFR-NON AF BURMESE 40 mL/min/1.73m2 Critically low >=60 [facility] Comment on above: Performed By: #### B MP ####[facility] [address] [address]Dr. Trevor Nichols Glucose [Mass/Vol] 95 mg/dL Normal 74-106 [facility] Comment on above: Performed By: #### B MP ####[facility] [address] [place], [place] [address]Dr. Trevor Nichols Potassium [Moles/Vol] 5.4 mmol/L Critically high 3.4-5.0 [facility] Comment on above: Performed By: #### B MP ####[facility] [address] [place], [place] [address]Dr. Trevor Nichols Sodium [Moles/Vol] 138 mmol/L Normal 137-145 [facility] Comment on above: Performed By: #### B MP ####[facility] [address] [place], [place] [address]Dr. Trevor Nichols Urea nitrogen [Mass/Vol] 26.0 mg/dL Critically high 9.0-20.0 [facility] Comment on above: Performed By: #### B MP ####[facility] [address] [place], [place] [address]Dr. Trevor Nichols Urea nitrogen/Creatinine [Mass ratio] 15.4 mg/mg Normal [facility] Comment on above: Performed By: #### B MP ####[facility] [address] [place], [place] [address]Dr. Trevor Nichols BNPon 04-29-2021 Natriuretic peptide B (Bld) [Mass/Vol] 421.0 pg/mL Normal <=900.0 [facility] Comment on above: Performed By: #### B HEADING AND PRIMING OPERATOR, MG ####[facility] [address] [place], [place] [address]Gerken Rose Marie CBC W MANUAL DIFFon 04-29-20 21 ATYPICAL LYMPH # 0.19 103/ul Normal [facility] [place] Comment on above: Performed By: #### C JOBY ####[facility] Mmphssktud[address] [place], [place] [address]Gerken [place]#### PERSMR ####[facility] Bjhiesepyp[address] [place] [address]Dr. Yilan Nichols ATYPICAL LYMPH % 4 % Normal The [facility] Comment on above: Performed By: #### C JOBY ####[facility] Vvmj[address]cvs[address] [place] [address] Rose Marie#### PERSMR ####[facility] Vmkgivikci9[address] [place], [place] [address]Dr. Yilan Nichols BAND # 0.2 103/ul Normal 0.0-0.3 [facility] Comment on above: Performed By: #### Brodie HEMPHILL ####[facility] Cgrrubrpfu[address] [place] [address] [place] Marie#### PERSMR ####[facility] Gdfhjtlkmt340[address] [place], [place] [address]Dr. Yilan Nichols BAND % 5 % Normal 0-5 [facility] Comment on above: Performed By: #### Brodie HEMPHILL ####[facility] Nddvlertdd[address] [place] [address] Rose Marie#### PERSMR ####[facility] Dsebbmpijv5460[address] [place], [place] [address]Dr. Yilan Nichols BASOM # 0.05 103/ul Normal 0.00-0.10 [facility] Comment on above: Performed By: #### C JOBY ####[facility] Havbktkcuf[address] [place] [address] Rose Marie#### PERSMR ####[facility] Sietocwrnj857[address] [place], [place] [address]Dr. Yilan Nichols BASOM % 1.0 % Normal 0.2-2.0 [facility] Comment on above: Performed By: #### C JOBY ####[facility] Ocvoeyyfeq[address] [place] [address] Rose Marie#### PERSMR ####[facility] Arhqzcwkux25[address] [place] [id number]. Trevor Nichols BLAST # Normal [facility] Comment on above: Performed By: #### C JOBY ####[facility] Gpccibkmuy[address] [place] [address] Rose Marie#### PERSMR ####[facility] Cpaanfsqhe55[address] [place] [address]Dr. Trevor Nichols BLAST % Normal [facility] Comment on above: Performed By: #### C JOBY ####[facility] Avqcojdbpf[address] [place] [address] Rose Marie#### PERSMR ####[facility] Iothzbaegh8968[address] [place], [place] [address]Dr. Trevor Nichols CORRECTED WBC Normal 4.0-11.0 The [facility] Comment on above: Performed By: #### Brodie HEMPHILL ####[facility] Ebijhqcjbs99[address] [place] [address] Rose Marie#### PERSMR ####[facility] Forwqegsuh808[address] [place], [place] [address]Dr. Trevor Nichols EOS # 0.00 103/ul Normal 0.00-0.70 [facility] Comment on above: Performed By: #### Brodie HEMPHILL ####[facility] Liedncxuyc[address] [place] [address] Rose Marie#### PERSMR ####[facility] Wwbkfshtje[address] [place], [place] [address]Dr. Trevor Nichols EOS% 0.0 % Critically low 0.9-7.0 The [facility] Comment on above: Performed By: #### Brodie HEMPHILL ####[facility] Fpwytmnqub[address] [place] [address] Rose Marie#### PERSMR ####[facility] Kzsmcvgvsj1778[address] [place], [place] [address]Dr. Trevor Nichols HCT 35.7 % Critically low 42.0-54.0 [facility] Comment on above: Performed By: #### C JOBY ####[facility] Btnprrpiqd[address] [place] [address] Rose Marie#### PERSMR ####[facility] Raetrzplyv4587[address] [place], [place] [address]Dr. Trevor Nichols HGB 11.7 g/dl Critically low 14.0-18.0 The [facility] Comment on above: Performed By: #### Brodie HEMPHILL ####[facility] Lgejostglm[address] [place] [address] Rose Marie#### PERSMR ####[facility] Ytvdfznsom[address] [place], [place] [address]Dr. Trevor Nichols LYMPHM # 0.72 103/ul Critically low 1.20-3.80 The [facility] Comment on above: Performed By: #### Brodie HEMPHILL ####[facility] Aokxmpdmtp84[address] [place] [address] Rose Marie#### PERSMR ####[facility] Auzhlnigqx101[address] [place], [place] [address]Dr. Trevor Nichols LYMPHM% 15.0 % Critically low 20.5-60.0 The [facility] Comment on above: Performed By: #### Brodie HEMPHILL ####[facility] Cinftkbcpo[address] [place] [address] Rose Marie#### PERSMR ####[facility] Fxnedpfndm2830[address] [place], [place] [address]Dr. Trevor Nichols MCH 34.4 pg Critically high 25.9-34.0 The [facility] Comment on above: Performed By: #### Brodie HEMPHILL ####[facility] Uemqdqntoy[address] [place] [address] Rose Marie#### PERSMR ####[facility] Zfxmivknsc6704[address] [place], [place] [address]Dr. Trevor Nichols MCHC 32.8 g/dl Normal 29.9-35.2 [facility] Comment on above: Performed By: #### Brodie HEMPHILL ####[facility] Btkwsqlynf9[address] [place] [address] Rose Marie#### PERSMR ####[facility] Qdqgvihauo66[address] [place] [address]Dr. Trevor Nichols MCV 105.0 fL Critically high 80.0-94.0 The [facility] Comment on above: Performed By: #### C JOBY ####[facility] Axmuibzdh[address] [place] [address] Rose Marie#### PERSMR ####[facility] Tizhfinahf38[address] [place] [address]Dr. Trevor Nichols METAMYELOCYTE # Normal [facility] Comment on above: Performed By: #### C JOBY ####[facility] Dhtekequdn[address] [place] [address] Rose Marie#### PERSMR ####[facility] Kcthyjurue4826[address] [place], [place] [address]Dr. Trevor Nichols METAMYELOCYTE % Normal [facility] Comment on above: Performed By: #### Brodie HEMPHILL ####[facility] Odvmscntkg[address] [place] [address] Rose Marie#### PERSMR ####[facility] Lhldtiyjxr5875[address] [place], [place] [address]Dr. Trevor Nichols MONOM# 1.25 103/ul Critically high 0.30-0.80 [facility] Comment on above: Performed By: #### Brodie HEMPHILL ####[facility] Ucbugvqzif[address] [place] [address] Rose Marie#### PERSMR ####[facility] Oasjipbicl9[address] [place], [place] [address]Dr. Trevor Nichols MONOM% 26.0 % Critically high 1.7-12.0 [facility] Comment on above: Performed By: #### C JOBY ####[facility] Kdrwyostgn[address] [place] [address] Rose Marie#### PERSMR ####[facility] Ldvtwnvqgr525[address] [place], [place] [address]Dr. Trevor Nichols MPV 10.5 fL Normal 9.5-13.5 [facility] Comment on above: Performed By: #### C JOBY ####[facility] Leeflhmcri0142 [address] Rose [place]#### PERSMR ####[facility] Yxsmynqhbr1332 [place] [address]Dr. Trevor Nichols MYELOCYTE # Normal [facility] Comment on above: Performed By: #### Brodie HEMPHILL ####[facility] Kdtpvwphnn6994 [place] [address]Gerken [place] Marie#### PERSMR ####[facility] Jqgwrulmzs4884 [place] [address]Dr. Trevor Nichols MYELOCYTE % Normal [facility] Comment on above: Performed By: #### Brodie HEMPHILL ####[facility] Yqzsegzlzj8942 [address] [place]#### PERSMR ####[facility] Tomiekbuzh4[address] [place] [address]Dr. Trevor Nichols NRBC Normal [facility] Comment on above: Performed By: #### Brodie HEMPHILL ####[facility] Fhryahzzxd7274 [address] Rose Marie#### PERSMR ####[facility] Cbnkxedlln4836 [place] [address]Dr. Trevor Nichols PATH REVIEW INDICATED Normal [facility] Comment on above: Performed By: #### Brodie HEMPHILL ####[facility] Rzldajpbxm4777 [address] Rose [place]#### PERSMR ####[facility] Tzirlippom2[address] [place] [address]Dr. Trevor Nichols PLT 158 103/ul Normal 150-450 [facility] Comment on above: Performed By: #### Brodie HEMPHILL ####[facility] Ssscnhlrmj1938 [address] [place]#### PERSMR ####[facility] Spmkutxdja2255 [place] [address]Dr. Trevor Nichols RBC 3.40 106/ul Critically low 4.70-6.10 [facility] Comment on above: Performed By: #### Brodie HEMPHILL ####[facility] Fbioobcats8867 [address] [place]#### PERSMR ####[facility] Wenwrxeypy4743 [place] [address]Dr. Trevor Nichols RDW 15.6 % Critically high 11.0-15.0 [facility] Comment on above: Performed By: #### C JOBY ####[facility] Aqsuvgwbic[address] [place] [address] Rose Marie#### PERSMR ####[facility] Xohhzfyuco3212 [place] [address]Dr. Trevor Nichols SEG # 2.35 103/ul Normal 1.40-6.50 [facility] Comment on above: Performed By: #### C JOBY ####[facility] Yojlmmbbwt[address] [place] [address] Rose Marie#### PERSMR ####[facility] Wuufcdqeqr[address] [place], [place] [address]Dr. Trevor Nichols SEG % 49.0 % Normal 43.0-75.0 [facility] Comment on above: Performed By: #### C JOBY ####[facility] Mfscgwvesp[address] [place] [address] Rose Marie#### PERSMR ####[facility] Ezohsrskys84[address] [place], [place] [address]Dr. Trevor Nichols WBC 4.8 103/ul Normal 4.0-11.0 [facility] Comment on above: Performed By: #### C FAVIOMAN ####[facility] Jjdifpsswe[address] [place] [address] Rose Marie#### PERSMR ####[facility] Ybbnbnongp6185 [place] [address]Dr. Trevor Nichols MAGNESIUMon 04-29-2021 Magnesium [Mass/Vol] 2.4 mg/dL Critically high 1.6-2.3 [facility] Comment on above: Performed By: #### B HEADING AND PRIMING OPERATOR, MG ####[facility] Dwbfcoxcim70[address] [place], [place] [address]Gerken [place] Marie PERIPHERAL SMEARon Pathologist Cyto stain Nom (Cvx/Vag) [ID] DR. BHARTI PARDO Normal The [facility] Comment on above: Result Comment: Kate pheral blood smear reveals isolated monocytosis with unremarkable morphology. The neutrophils and platelets are morphologically unremarkable. No atypical lymphocytes or blasts are noted. A reactive process is favored. Clinical correlation is suggested. Dr Bharti Pardo 05/01/2021 Performed By: #### C BCMAN ####[facility] Fdqavobthi[address] [place] [address] Rose Marie#### PERSMR ####[facility] Mzeluwrueu1014 [place] [address]DrJeffery Nichols VITAMIN D 25 OHon 04-29-2021 VIT D 25-OH 71.4 ng/mL Normal [facility] Comment on above: Performed By: #### V ITAD ####[facility] [address] [place] [address] VIT D RANGES SEE BELOW Normal [facility] Comment on above: Result Comment: <20 ng/mL Vit D deficient 20 - <30 ng/mL Vit D insufficient 30 - 100 ng/mL Vit D sufficient >100 ng/mL Potential Toxicity Performed By: #### V ITAD ####[facility] Myturncado[address] [place] [address] Rose Marie POC GLUCOSE LABon 06-30-2020 Glucose [Mass/Vol] 108 mg/dL High 70-100 The [facility] Comment on above: Performed By: #### 4 1000, 90695 #### [facility] [address] [place] [address], [facility] Glucose [Mass/Vol] 165 mg/dL High 70-100 The [facility] Comment on above: Performed By: #### 4 1000, 20047 #### [facility] [address] [place] [address], [place] C REACTIVE PROTEINon 020 CRP [Mass/Vol] 27.8 mg/L High 0.0-7.0 [facility] Comment on above: Order Comment: No: D o not add to previous draw Performed By: #### 4 1000, 55285, 53580 #### [facility] [address] [place] [address], [facility] CBC COMPLETE BLOOD COUNTon 08-29-2019 Erythrocyte distribution width (RBC) [Ratio] 14.3 % Normal 11.5-15.0 The [facility] Comment on above: Order Comment: No: D o not add to previous draw Performed By: #### 4 1000, 97456 #### [facility] [address] [place] [address], [facility] Hematocrit (Bld) [Volume fraction] 34.7 % Low 39.0-50.0 The [facility] Comment on above: Order Comment: No: D o not add to previous draw Performed By: #### 4 1000, 08642 #### [facility] [address] [place] [address], [facility] Hemoglobin (Bld) [Mass/Vol] 11.6 g/dL Low 13.0-17.0 [facility] Comment on above: Order Comment: No: D o not add to previous draw Performed By: #### 4 1000, 82506 #### [facility] [address] [place] [address], [facility] MCH (RBC) [Entitic mass] 35.5 pg High 27.0-33.0 [facility] Comment on above: Order Comment: No: D o not add to previous draw Performed By: #### 4 1000, 49023 #### [facility] [address] [place] [address], [facility] MCHC (RBC) [Mass/Vol] 33.4 g/dL Normal 32.0-35.0 [facility] Comment on above: Order Comment: No: D o not add to previous draw Performed By: #### 4 1000, 57967 #### [facility] [address] [place] [address], [place] MCV (RBC) [Entitic vol] 106.1 fL High 82.0-98.0 [facility] Comment on above: Order Comment: No: D o not add to previous draw Performed By: #### 4 1000, 91333 #### [facility] [address] [place] [address], [place] Nucleated RBC/100 WBC (Bld) [Ratio] 0 % Normal 0-0 [facility] Comment on above: Order Comment: No: D o not add to previous draw Performed By: #### 4 1000, 35862 #### [facility] [address] [place] [address], [place] PLAT CNT 150 10*3/uL Normal 150-400 [facility] Comment on above: Order Comment: No: D o not add to previous draw Performed By: #### 4 1000, 72267 #### [facility] [address] [place] [address], [place] RBC (Bld) [#/Vol] 3.27 10*6/uL Low 4.20-5.70 [facility] Comment on above: Order Comment: No: D o not add to previous draw Performed By: #### 4 1000, 92051 #### [facility] [address] [place] [address], [place] WBC (Bld) [#/Vol] 5.86 10*3/uL Normal 4.00-10.60 [facility] Comment on above: Order Comment: No: D o not add to previous draw Performed By: #### 4 1000, 65466 #### [facility] [address] [place] [address], [facility] CPKon 06-29-2020 CK [Catalytic activity/Vol] 45 U/L Normal 30-223 [facility] Comment on above: Order Comment: Unkno wn Performed By: #### 9 9909, 63297, 43972, 07900 #### [facility] [address] [place] [address], [facility] CT BRAIN WO CONTRASTon 06-29 CT BRAIN WO CONTRAST [facility] Department of Radiology [address] [place] [id number] Patient Name: CHIKI JUAREZ : 1945 Sex: M Age: Race: White Pt. Location: [id number] Patient Status: I Ordered Date: 06/29/2020 9:20:00 AM Completed Date: 06/29/2020 07:10 PM Requesting Provider: MARIA ELENA LEDESMA Attending Provider: MYA BHAKTA Report Copy To: Signs & Symptoms: Stroke(CVA) History: See Comments Comments: CVA Exam: CT BRAIN WO CONTRAST CT BRAIN WO CONTRAST 06/29/2020 7:10 PM CLINICAL INDICATIONS: Stroke(CVA) TECHNOLOGIST COMMENTS: Stroke(CVA) QUESTION FOR THE RADIOLOGIST: CVA PROTOCOL: Axial CT images of the head were obtained without IV contrast. TECHNIQUE: Multidetector CT axial slices of the brain without IV contrast. Multiplanar reformats were performed and viewed on a separate workstation and reviewed to further define anatomy and possible pathology. All CT scans at this facility use dose modulation, iterative reconstruction, and/or weight based dosing when appropriate to reduce radiation dose to as low as reasonably achievable COMPARISON: None. FINDINGS: There is a wedge-shaped hypodense area in the left posterior parietal region consistent with an acute to subacute infarct. No associated hemorrhage is seen. No midline shift is demonstrated. No other areas of abnormal density are seen. 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 Electronically signed: Aleta Armas. Transcribed by: [email or web address], User Resident: Electronically Signed by: ALETA ARMAS @ 06/29/2020 07:16 PM Normal [facility] Comment on above: Order Comment: No: D o not add to previous draw D DIMER TESTon 06-29-2020 D-DIMER TEST 1.44 mcg/mL FEU High 0.27-0.49 [facility] Comment on above: Order Comment: No: D o not add to previous draw Result Comment: D-Di fide values of less than 0.50 ug/ml (FEU) are considered to be a negative predictor of thrombosis. However, the D-Dimer result should be used in conjunction with pretest probability and should not be used alone to diagnose a thrombotic event. Performed By: #### 4 1000, 46595, 11692 #### [facility] [address] [place] [address], [facility] FERRITINon 06-29-2020 Ferritin [Mass/Vol] 271 ng/mL Normal 24-336 [facility] Comment on above: Order Comment: Unkno wn Performed By: #### 9 9909, 03770, 00584, 15624 #### [facility] [address] [place] [id number], [facility] LDH BLOODon 06-29-2020 LDH 148 Units/L Normal 140-271 [facility] Comment on above: Order Comment: Unkno wn Performed By: #### 9 9909, 24644, 46083, 18254 #### [facility] [address] [place] [address], [facility] LIPID PROFILEon 06-29-2020 Cholesterol [Mass/Vol] 176 mg/dL Normal 120-200 [facility] Comment on above: Order Comment: No: D o not add to previous draw Result Comment: CHOL ESTEROL REFERENCE RANGE: 20 YEARS AND OLDER CARDIOVASCULAR RISK Less than 200 mg/dl Low Risk 200 to 239 mg/dl Borderline Risk 240 mg/dl and greater High Risk Performed By: #### 4 1000, 16950, 92800 #### [facility] [address] [place] [address], [place] Cholesterol in HDL [Mass/Vol] 39 mg/dL Normal 23-92 [facility] Comment on above: Order Comment: No: D o not add to previous draw Result Comment: Slig ht variation in normal range could be due to gender and/or age. HDL CHOLESTEROL REFERENCE RANGE: 20 years and older Cardiovascular Risk > or =60 mg/dL Desirable 40 TO 59 mg/dL Low Risk <40 mg/dL High Risk Performed By: #### 4 1000, , 79280 #### [facility] [address] [place] [address], [facility] Cholesterol in LDL [Mass/Vol] 100 mg/dL Normal 0-130 [facility] Comment on above: Order Comment: No: D o not add to previous draw Result Comment: LDL IS A CALCULATION LDL IS ONLY VALID IF THE TRIG IS LESS THAN 400. Performed By: #### 4 1000, , 62939 #### [facility] [address] [place] [address], [facility] Cholesterol.total/Ch olesterol in HDL [Mass ratio] 4.5 {ratio} Normal 0.0-4.5 [facility] Comment on above: Order Comment: No: D o not add to previous draw Performed By: #### 4 1000, , 35773 #### [facility] [address] [place] [address], [place] NON-HDL CHOLESTEROL 137 mg/dL Normal [facility] Comment on above: Order Comment: No: D o not add to previous draw Performed By: #### 4 1000, , 90148 #### [facility] [address] [place] [address], [place] Triglyceride [Mass/Vol] 187 mg/dL High 40-149 [facility] Comment on above: Order Comment: No: D o not add to previous draw Result Comment: TRIG LYCERIDE REFERENCE RANGE: 20 YEARS AND OLDER CARDIOVASCULAR RISK LESS THAN 150 mg/dl LOW RISK 150 TO 199 mg/dl BORDERLINE RISK 200 mg/dl AND GREATER HIGH RISK Performed By: #### 4 1000, , 68399 #### [facility] [address] [place] [address], [facility] VLDL CHOL 37 mg/dL Normal 0-40 [facility] Comment on above: Order Comment: No: D o not add to previous draw Performed By: #### 4 1000, 03885, 00683 #### [facility] [address] [place] [address], [place] LIVER BATTERYon 06-29-2020 Albumin [Mass/Vol] 3.4 g/dL Low 3.5-5.7 [facility] Comment on above: Order Comment: Unkno wn Performed By: #### 9 9909, 26008, 04199, 32234 #### [facility] [address] [place] [address], [facility] ALKALINE PHOSPH 60 IU/L Normal 34-104 [facility] Comment on above: Order Comment: Unkno wn Performed By: #### 9 9909, 36117, 38535, 13334 #### [facility] [address] [place] [address], [place] ALT [Catalytic activity/Vol] 8 U/L Normal 7-52 [facility] Comment on above: Order Comment: Unkno wn Performed By: #### 9 9909, 31701, 96451, 97139 #### [facility] [address] [place] [address], [place] AST [Catalytic activity/Vol] 11 U/L Low 13-39 [facility] Comment on above: Order Comment: Unkno wn Performed By: #### 9 9909, 30232, 24217, 26379 #### [facility] [address] [place] [address], [place] Bilirubin [Mass/Vol] 0.5 mg/dL Normal 0.3-1.0 [facility] Comment on above: Order Comment: Unkno wn Performed By: #### 9 9909, 80653, 16012, 65212 #### [facility] [address] [place] [address], [facility] Bilirubin.direct [Mass/Vol] 0.1 mg/dL Normal 0.0-0.2 [facility] Comment on above: Order Comment: Unkno wn Performed By: #### 9 9909, 19293, 43103, 86089 #### [facility] [address] [place] [address], [facility] Protein [Mass/Vol] 5.8 g/dL Low 6.0-8.3 [facility] Comment on above: Order Comment: Unkno wn Performed By: #### 9 9909, 11496, 07490, 75134 #### [facility] [address] [place] [address], [facility] POC GLUCOSE LABon 06-29-2020 Glucose [Mass/Vol] 112 mg/dL High 70-100 [facility] Comment on above: Performed By: #### 4 1000, 93106 #### [facility] [address] [place] [address], [facility] Glucose [Mass/Vol] 105 mg/dL High 70-100 [facility] Comment on above: Performed By: #### 4 1000, 03368 #### [facility] [address] [place] [address], [place] Glucose [Mass/Vol] 94 mg/dL Normal 70-100 [facility] Comment on above: Performed By: #### 4 1000, 54290, 55741 #### [facility] [address] [place] [address], [place] Glucose [Mass/Vol] 121 mg/dL High 70-100 [facility] Comment on above: Performed By: #### 4 1000, 69966 #### [facility] [address] [place] [address], [place] PORTABLE CHEST 1 VIEWon 06-17 PORTABLE CHEST 1 VIEW [facility] Department of Radiology [address] [place] [id number] Patient Name: CHIKI JUAREZ : 1945 Sex: M Age: Race: White Pt. Location: [id number] Patient Status: I Ordered Date: 06/29/2020 5:45:00 PM Completed Date: 06/29/2020 07:48 PM Requesting Provider: DAVIE HAMMOND Attending Provider: MYA BHAKTA Report Copy To: Signs & Symptoms: Post OP History: Comments: Check Pacemaker/AICD Lead Position Exam: PORTABLE CHEST 1 VIEW PORTABLE CHEST 1 VIEW 06/29/2020 7:48 PM CLINICAL INDICATIONS: Post OP TECHNOLOGIST COMMENTS: Post OP, Check Pacemaker QUESTION FOR THE RADIOLOGIST: Check Pacemaker/AICD Lead Position PROTOCOL: AP(PA) view was obtained. COMPARISON: 03/09/2019 FINDINGS: There has been interval placement of a dual lead cardiac pacemaker projecting from the left. Its leads appear intact in good position. No pneumothorax is seen. There is no evidence for active cardiovascular pulmonary disease. IMPRESSION: Normal chest status post uncomplicated cardiac pacemaker placement. Electronically signed: Aleta Armas. Transcribed by: [email or web address], User Resident: Electronically Signed by: ALETA ARMAS @ 06/29/2020 08:15 PM Normal [facility] Comment on above: Order Comment: No: D o not add to previous draw BASIC METABOLIC PANELon 06-17 Calcium [Mass/Vol] 8.8 mg/dL Normal 8.6-10.3 [facility] Comment on above: Order Comment: No: D o not add to previous draw Performed By: #### 4 1000, 51070, 79054 #### [facility] [address] [place] [address], [place] Chloride [Moles/Vol] 102 mmol/L Normal 98-107 [facility] Comment on above: Order Comment: No: D o not add to previous draw Performed By: #### 4 1000, 80847, 15108 #### [facility] [address] [place] [address], [place] CO2 [Moles/Vol] 24 mmol/L Normal 21-31 [facility] Comment on above: Order Comment: No: D o not add to previous draw Performed By: #### 4 1000, 04982, 81094 #### [facility] [address] [place] [address], [place] Creatinine [Mass/Vol] 1.31 mg/dL High 0.70-1.30 [facility] Comment on above: Order Comment: No: D o not add to previous draw Performed By: #### 4 1000, 77567, 73021 #### [facility] [address] [place] [address], [place] GFR/1.73 sq M predicted among blacks MDRD (S/P/Bld) [Vol rate/Area] mL/min/{1.73_m2} Normal >60 [facility] Comment on above: Order Comment: No: D o not add to previous draw Result Comment: Calc ulation may not be valid for patients over 70 years Performed By: #### 4 1000, 52170, 38543 #### [facility] [address] [place] [address], [place] GFR/1.73 sq M predicted among non-blacks MDRD (S/P/Bld) [Vol rate/Area] 54 ml/min/1.73sq m Abnormal >60 [facility] Comment on above: Order Comment: No: D o not add to previous draw Result Comment: Calc ulation may not be valid for patients over 70 years Performed By: #### 4 1000, 24748, 72983 #### [facility] [address] [place] [address], [place] Glucose [Mass/Vol] 96 mg/dL Normal 70-100 [facility] Comment on above: Order Comment: No: D o not add to previous draw Performed By: #### 4 1000, , 74360 #### [facility] [address] [place] [address], [place] Potassium [Moles/Vol] 4.3 mmol/L Normal 3.5-5.1 [facility] Comment on above: Order Comment: No: D o not add to previous draw Performed By: #### 4 1000, , 64013 #### [facility] [address] [place] [address], [place] Sodium [Moles/Vol] 133 mmol/L Low 136-145 [facility] Comment on above: Order Comment: No: D o not add to previous draw Performed By: #### 4 1000, , 57050 #### [facility] [address] [place] [address], [place] Urea nitrogen [Mass/Vol] 26 mg/dL High 7-25 [facility] Comment on above: Order Comment: No: D o not add to previous draw Performed By: #### 4 1000, , 18538 #### [facility] [address] [place] [address], [place] CBC COMPLETE BLOOD COUNTon 08-28-2019 Erythrocyte distribution width (RBC) [Ratio] 14.4 % Normal 11.5-15.0 [facility] Comment on above: Order Comment: No: D o not add to previous draw Performed By: #### 4 1000, , 90342 #### [facility] [address] [place] [address], [place] Hematocrit (Bld) [Volume fraction] 35.2 % Low 39.0-50.0 [facility] Comment on above: Order Comment: No: D o not add to previous draw Performed By: #### 4 1000, , 07476 #### [facility] [address] [facility] [place] [address], [facility] Hemoglobin (Bld) [Mass/Vol] 11.8 g/dL Low 13.0-17.0 [facility] Comment on above: Order Comment: No: D o not add to previous draw Performed By: #### 4 1000, , 86684 #### [facility] [address] [place] [address], [facility] MCH (RBC) [Entitic mass] 35.5 pg High 27.0-33.0 [facility] Comment on above: Order Comment: No: D o not add to previous draw Performed By: #### 4 1000, , #### [facility] [address] [facility] [address] MCHC (RBC) [Mass/Vol] 33.5 g/dL Normal 32.0-35.0 [facility] Comment on above: Order Comment: No: D o not add to previous draw Performed By: #### 4 999, , 25305 #### [facility] [address] [facility] [place] [address], [facility] MCV (RBC) [Entitic vol] 106.0 fL High 82.0-98.0 [facility] Comment on above: Order Comment: No: D o not add to previous draw Performed By: #### 4 1000, , 70382 #### [facility] [address] [facility]. [address] Nucleated RBC/100 WBC (Bld) [Ratio] 0 % Normal 0-0 [facility] Comment on above: Order Comment: No: D o not add to previous draw Performed By: #### 4 1000, , 42515 #### [facility] [address] [facility] [place] [address], [facility] PLAT CNT 158 10*3/uL Normal 150-400 [facility] Comment on above: Order Comment: No: D o not add to previous draw Performed By: #### 4 1000, 92824, 35445 #### [facility] [address] [facility] [place] [address], [facility] RBC (Bld) [#/Vol] 3.32 10*6/uL Low 4.20-5.70 [facility] Comment on above: Order Comment: No: D o not add to previous draw Performed By: #### 4 1000, 27994, 57937 #### [facility] [address] [place] [address], [facility] WBC (Bld) [#/Vol] 7.25 10*3/uL Normal 4.00-10.60 [facility] Comment on above: Order Comment: No: D o not add to previous draw Performed By: #### 4 1000, 84406, 03156 #### [facility] [address] Cardiovascular Lab Reporton 06-28-2020 Cardiovascular Lab Report [facility] Patient Name: Chiki Juarez [facility] MR #: [id number] Physician: Connor Carrera MD Department of Service Date: 06/28/2020 Medicine Birthdate: 1945 Division of Room #: 3CD 832221 Cardiology Adult Cardiovascular Services [place] [address] Cardiovascular Laboratory Report DUAL CHAMBER PACEMAKER IMPLANT PROCEDURE NOTE DATE OF PROCEDURE: 06/28/2020 PERFORMING PHYSICIAN: Dr. Connor Carrera CONSENT: Patient LOCATION: EP Lab PROCEDURE PERFORMED: 1. Implantation of pacemaker ([employer]) 2. Ultrasound guided venous access INDICATIONS: 1. 3rd degree AV block 2. COVID + PROCEDURAL SEDATION: Versed and Fentanyl. Moderate sedation was administered by the sedation nurse under my supervision and noted in the CVL log. Intraprocedural face to face sedation time: 70min. Monitoring: Cardiac telemetry, Blood pressure, continuous pulse oxymetry. FLUOROSCOPY TIME: 2min 15s/16mGray PREPARATION: Patient was brought to the EP lab in the post absorptive state. A procedural pause was performed identifying the patient, the procedure to be performed and the site of implant. The left chest was prepped and draped in the usual sterile fashion. Preoperative antibiotics IV Ancef was administered.. PROCEDURAL DETAILS: Patient was placed in trendelenberg position and ultrasound was used to evaluate the patency of left axillary vein and for venous access. Left axillary venous access was obtained using modified seldinger technique using a 5 Khmer micro-puncture needle on two occasions and 0.24 wires were placed. Local infiltration of 1% Lidocaine was performed, and an incision was created in the left upper chest. Dissection was then performed using cautery down to the fascial plane above the muscle. Lidocaine was injected subcutaneously, and gentle dissection was performed down to the fascial plane above the pectoralis muscle. A small pocket was made enough for the device. 6 Khmer Safesheaths were placed over the wire. An active fixation [employer] pacing lead was then delivered through the 6Fsheath to the right ventricle. After confirmation of lead position on orthogonal views (PARK and TONGAN) to confirm septal position, the screw was activated, and the lead was placed in the right ventricular mid cavity towards the septum. After confirmation of good sensing parameters, injury pattern and pacing thresholds, 10V pacing was done and no diaphragmatic stimulation was noted. It was then secured in the pocket using three 1-0 Silk sutures. Then an active fixation [employer] lead was delivered through the 6Fsheath to the right atrial appendage. After confirmation of lead position on orthogonal views (PARK and TONGAN), the screw was activated. After confirmation of good sensing parameters, injury pattern and pacing thresholds, the lead was then tested using Lambert's maneuver. 10V pacing was done and no diaphragmatic stimulation was noted. It was then secured in the pocket using three 1-0 Silk sutures. Pocket hemostasis was secured, and it was then copiously and vigorously irrigated with antibiotic solution. The leads were attached to the generator and then wrapped under the device and the device was tacked to underlying muscle and placed in the pocket. The pocket was closed in layers: subcutaneous layer using 2-0 Vicryl and skin using 3-0 absorbable monofilament suture. Glue was applied and Tegaderm dressing was placed on top. Lead parameters were then rechecked through the device as noted below. The patient was returned to the short stay room for post procedural observation. No immediate procedural complications were noted. Device info: Fondu Accolade MRI EL Model# L331 Serial# [id number] RA lead: Model# INGEVITY 7740 (45cms) Serial# [id number] Sensin.7mV Threshold: 0.9V@0.4ms Impedance: 666Ohms RV lead: Model# INGEVITY [id number](52cms) Serial# [id number] Sensin.1mV Threshold: 0.4V@0.4ms Impedance: 746Ohms POST PROCEDURE EXAM: Patient was hemodynamically stable. COMPLICATIONS: None. ESTIMATED BLOOD LOSS: 5cc IMPRESSION: 1. Successful dual chamber pacemaker with excellent pacing and sensing parameters. RECOMMENDATIONS: 1 Occlusive dressing to be removed after 2 weeks. 2. Do not wet the incision for 7 days. 3. No lifting heavy weights using arm on the same side x 3weeks 4. Do not lift elbow above the shoulder on the same side for 4-6 weeks. 5. No driving for 1 month. 6. F/u in device clinic 1 week from discharge or sooner for any concerns. Connor Carrera MD Cardiac Electrophysiology Electronically Signed by: Connor Carrera MD 06/28/2020 05:25 P Connor Carrera MD Date Dict: 06/28/2020/03:28 P/Connor Carrera MD Date Trans: 06/28/2020 03:33 P/alondra [id number] cc: Will Sherwood M.D. [address] [place] [id number] Normal [facility] MAGNESIUM BLOODon 06-28-2020 Magnesium [Mass/Vol] 2.1 mg/dL Normal 1.9-2.7 [facility] Comment on above: Order Comment: No: D o not add to previous draw Performed By: #### 4 1000, 44500, 99960 #### [facility] [address] [place] [address], [facility] PHOSPHORUS BLOODon 0 Phosphate [Mass/Vol] 3.7 mg/dL Normal 2.5-5.0 [facility] Comment on above: Order Comment: No: D o not add to previous draw Performed By: #### 4 1000, 57698, 02210 #### [facility] [address] [place] [address], [place] POC GLUCOSE LABon 06-28-2020 Glucose [Mass/Vol] 93 mg/dL Normal 70-100 [facility] Comment on above: Performed By: #### 4 1000, 40690 #### [facility] [address] [place] [address], [place] Glucose [Mass/Vol] 90 mg/dL Normal 70-100 [facility] Comment on above: Performed By: #### 4 1000, 14060 #### [facility] [address] [place] [address], [place] Glucose [Mass/Vol] 97 mg/dL Normal 70-100 [facility] Comment on above: Performed By: #### 4 1000, 49630 #### [facility] [address] [place] [address], [place] Glucose [Mass/Vol] 99 mg/dL Normal 70-100 [facility] Comment on above: Performed By: #### 4 1000, 26503 #### [facility] [address] [place] [address], [facility] APTTon 06-27-2020 aPTT Coag (Bld) [Time] 34.8 s Normal 25.0-35.0 [facility] Comment on above: Order Comment: No: D o not add to previous draw Result Comment: ALL RESULTS MUST BE INTERPRETED WITH RESPECT TO BLOOD DRAWING ARTIFACT OR DILUTION ERROR OF ANTICOAGULANT AT THE TIME OF SAMPLING. THE APTT SHOULD NOT BE USED TO MONITOR UNFRACTIONATED HEPARIN THERAPY, THIS LABORATORY NO LONGER HAS AN ESTABLISHED THERAPEUTIC RANGE BASED ON THE APTT. IT IS RECOMMENDED THAT THE [facility] - HEPARIN ASSAY (ANTI-XA ACTIVITY) BE USED FOR THIS PURPOSE. Performed By: #### 4 1000, 91175 #### [facility] [address] [place] [address], [place] BASIC METABOLIC PANELon 11-1 Calcium [Mass/Vol] 9.1 mg/dL Normal 8.6-10.3 [facility] Comment on above: Order Comment: No: D o not add to previous draw Performed By: #### 4 1000, 78122, 28941 #### [facility] [address] [place] [address], [place] Chloride [Moles/Vol] 104 mmol/L Normal 98-107 [facility] Comment on above: Order Comment: No: D o not add to previous draw Performed By: #### 4 1000, 30296, 46464 #### [facility] [address] [place] [address], [place] CO2 [Moles/Vol] 23 mmol/L Normal 21-31 [facility] Comment on above: Order Comment: No: D o not add to previous draw Performed By: #### 4 1000, 93112, 85853 #### [facility] [address] [place] [address], [place] Creatinine [Mass/Vol] 1.21 mg/dL Normal 0.70-1.30 [facility] Comment on above: Order Comment: No: D o not add to previous draw Performed By: #### 4 1000, 91538, 19709 #### [facility] [address] [place] [address], [place] GFR/1.73 sq M predicted among blacks MDRD (S/P/Bld) [Vol rate/Area] mL/min/{1.73_m2} Normal >60 [facility] Comment on above: Order Comment: No: D o not add to previous draw Result Comment: Calc ulation may not be valid for patients over 70 years Performed By: #### 4 1000, 55350, 49247 #### [facility] [address] [place] [address], [place] GFR/1.73 sq M predicted among non-blacks MDRD (S/P/Bld) [Vol rate/Area] 59 ml/min/1.73sq m Abnormal >60 [facility] Comment on above: Order Comment: No: D o not add to previous draw Result Comment: Calc ulation may not be valid for patients over 70 years Performed By: #### 4 1000, 49456, 61899 #### [facility] [address] [place] [address], [place] Glucose [Mass/Vol] 132 mg/dL High 70-100 [facility] Comment on above: Order Comment: No: D o not add to previous draw Performed By: #### 4 1000, 55862, 24390 #### [facility] [address] [place] [address], [place] Potassium [Moles/Vol] 5.2 mmol/L High 3.5-5.1 [facility] Comment on above: Order Comment: No: D o not add to previous draw Performed By: #### 4 1000, 30167, 98575 #### [facility] [address] [place] [address], [place] Sodium [Moles/Vol] 135 mmol/L Low 136-145 [facility] Comment on above: Order Comment: No: D o not add to previous draw Performed By: #### 4 1000, 87625, 61556 #### [facility] [address] [place] [address], [place] Urea nitrogen [Mass/Vol] 21 mg/dL Normal 7-25 [facility] Comment on above: Order Comment: No: D o not add to previous draw Performed By: #### 4 1000, 88395, 59792 #### [facility] [address] [place] [address], [place] C REACTIVE PROTEINon -11-2 020 CRP [Mass/Vol] 40.5 mg/L High 0.0-7.0 [facility] Comment on above: Order Comment: No: D o not add to previous draw Performed By: #### 4 1000, 77528, 29465 #### [facility] [address] [place] [address], [facility] CBC W/DIFFon 06-27-2020 ABS BASOPHILS 0.0 10*3/uL Normal 0.0-0.2 [facility] Comment on above: Order Comment: No: D o not add to previous draw Performed By: #### 4 1000, 77912 #### [facility] [address] [facility] [place] [address], [facility] ABS NEUTROPHILS 4.5 10*3/uL Normal 1.6-7.6 [facility] Comment on above: Order Comment: No: D o not add to previous draw Performed By: #### 4 1000, 61204 #### [facility] [address] [place] [address], [facility] Basophils/100 WBC (Bld) 0.0 % Normal 0.0-1.0 [facility] Comment on above: Order Comment: No: D o not add to previous draw Performed By: #### 4 1000, 89552 #### [facility] [address] [facility] [address], [facility] Eosinophils (Bld) [#/Vol] 0.0 10*3/uL Normal 0.0-0.5 [facility] Comment on above: Order Comment: No: D o not add to previous draw Performed By: #### 4 1000, 67019 #### [facility] [address] [facility] [place] [id number], [facility] Eosinophils/100 WBC (Bld) 0.0 % Normal 0.0-6.0 [facility] Comment on above: Order Comment: No: D o not add to previous draw Performed By: #### 4 1000, 94718 #### [facility] [address] [place] [address], [facility] Erythrocyte distribution width (RBC) [Ratio] 14.1 % Normal 11.5-15.0 [facility] Comment on above: Order Comment: No: D o not add to previous draw Performed By: #### 4 1000, 55691 #### [facility] [address] [place] [address], [facility] GIANT PLATELETS Present Normal [facility] Comment on above: Order Comment: No: D o not add to previous draw Performed By: #### 4 1000, 33251 #### [facility] [address] [place] [id number], [facility] Hematocrit (Bld) [Volume fraction] 36.0 % Low 39.0-50.0 [facility] Comment on above: Order Comment: No: D o not add to previous draw Performed By: #### 4 1000, 49788 #### [facility] [address] [place] [address], [facility] Hemoglobin (Bld) [Mass/Vol] 11.8 g/dL Low 13.0-17.0 [facility] Comment on above: Order Comment: No: D o not add to previous draw Performed By: #### 4 1000, 05728 #### [facility] [address] [facility] [place] [address], [facility] Lymphocytes (Bld) [#/Vol] 0.5 10*3/uL Low 1.2-4.0 [facility] Comment on above: Order Comment: No: D o not add to previous draw Performed By: #### 4 1000, 45244 #### [facility] [address] [facility] [place] [address], [facility] Lymphocytes/100 WBC (Bld) 8.2 % Low 20.0-45.0 [facility] Comment on above: Order Comment: No: D o not add to previous draw Performed By: #### 4 1000, 27693 #### [facility] [address] [place] [address], [facility] MCH (RBC) [Entitic mass] 35.2 pg High 27.0-33.0 [facility] Comment on above: Order Comment: No: D o not add to previous draw Performed By: #### 4 1000, 79701 #### [facility] [address] [place] [address], [facility] MCHC (RBC) [Mass/Vol] 32.8 g/dL Normal 32.0-35.0 [facility] Comment on above: Order Comment: No: D o not add to previous draw Performed By: #### 4 1000, 65319 #### [facility] [address] [place] [address], [facility] MCV (RBC) [Entitic vol] 107.5 fL High 82.0-98.0 [facility] Comment on above: Order Comment: No: D o not add to previous draw Performed By: #### 4 1000, 46104 #### [facility] [address] [facility]. [address] METAMYELO 3.7 % High 0.0-0.0 [facility] Comment on above: Order Comment: No: D o not add to previous draw Performed By: #### 4 1000, 07537 #### [facility] [address] [facility] [address], [facility] Monocytes (Bld) [#/Vol] 0.5 10*3/uL Normal 0.1-1.0 [facility] Comment on above: Order Comment: No: D o not add to previous draw Performed By: #### 4 1000, 24383 #### [facility] [address] [facility] [place] [address], [facility] MONOS 9.2 % Normal 5.0-12.0 [facility] Comment on above: Order Comment: No: D o not add to previous draw Performed By: #### 4 1000, 16269 #### [facility] [address] [place] [address], [facility] MYELOS 3.7 % High 0.0-0.0 [facility] Comment on above: Order Comment: No: D o not add to previous draw Performed By: #### 4 1000, 10986 #### [facility] [address] [place] [address], [place] Neutrophils/100 WBC (Bld) 75.2 % High 40.0-72.0 [facility] Comment on above: Order Comment: No: D o not add to previous draw Performed By: #### 4 1000, 76717 #### [facility] [address] [place] [address], [place] NRBC SCAN Present Normal [facility] Comment on above: Order Comment: No: D o not add to previous draw Performed By: #### 4 1000, 52276 #### [facility] [address] [place] [address], [place] Nucleated RBC/100 WBC (Bld) [Ratio] 0 % Normal 0-0 [facility] Comment on above: Order Comment: No: D o not add to previous draw Performed By: #### 4 1000, 68946 #### [facility] [address] [place] [address], [place] PLAT CNT 153 10*3/uL Normal 150-400 [facility] Comment on above: Order Comment: No: D o not add to previous draw Performed By: #### 4 1000, 81999 #### [facility] [address] [place] [address], [place] RBC (Bld) [#/Vol] 3.35 10*6/uL Low 4.20-5.70 [facility] Comment on above: Order Comment: No: D o not add to previous draw Performed By: #### 4 1000, 01403 #### [facility] [address] [place] [address], [place] WBC (Bld) [#/Vol] 5.92 10*3/uL Normal 4.00-10.60 [facility] Comment on above: Order Comment: No: D o not add to previous draw Performed By: #### 4 1000, 88654 #### [facility] [address] [facility] [place], [place] [id number] [place] [address] CPKon 06-27-2020 CK [Catalytic activity/Vol] 90 U/L Normal 30-223 [facility] Comment on above: Order Comment: No: D o not add to previous draw Performed By: #### 4 1000, 56428, 12283 #### [facility] [address] [place] [address], [facility] CTA HEADon 06-27-2020 CTA HEAD [facility] Department of Radiology [address] [place] [id number] Patient Name: CHIKI JURAEZ : 1945 Sex: M Age: Race: White Pt. Location: [id number] Patient Status: I Ordered Date: 06/27/2020 9:05:00 AM Completed Date: 06/27/2020 10:53 AM Requesting Provider: MARIA ELENA LEDESMA Attending Provider: MYA BHAKTA Report Copy To: Signs & Symptoms: Stroke(CVA) History: See Comments Comments: CVA Exam: CTA HEAD CTA HEAD 06/27/2020 10:53 AM CLINICAL INDICATIONS: Stroke(CVA) TECHNOLOGIST COMMENTS: Difficulty Swallowing QUESTION FOR RADIOLOGIST: CVA PROTOCOL: Contrast: Contrast enhanced CT of the brain obtained study reformatted into multiplanar images and maximal intensity projection images on a separate workstation. 100 mL Omnipaque 300 COMPARISON: No prior FINDINGS: Internal carotid arteries and carotid canals are normal. Intracavernous portions of both internal carotid arteries demonstrate atherosclerotic calcification but no definite focal stenosis M1 segment right middle cerebral artery and M2 and distal branches are normal. M1 segment left middle cerebral artery and M2 branches are normal. Anterior cerebral arteries are patent. Vertebral arteries patent at the skull base slightly dominant left vertebral artery. Some atherosclerotic calcification V4 segment left vertebral artery. Posterior inferior cerebellar arteries are patent. Superior cerebellar arteries are normal. Absent P1 segment of the right posterior cerebral artery. Large right posterior communicating artery supplies the right posterior cerebral artery which is widely patent there is a normal left posterior cerebral artery. No aneurysm or vascular malformation noted Oval subcutaneous low-density cyst in the posterior right neck most consistent with sebaceous cyst measuring 2.1 x 1.3 cm IMPRESSION: No focal stenosis or occlusion in the intracranial circulation. No aneurysm or vascular malformation All CT scans at this facility use dose modulation iterative reconstruction and or weight balanced dosing when appropriate to reduce radiation dose to as low as reasonably achievable Electronically signed: Ashu García. Transcribed by: [email or web address], User Resident: Electronically Signed by: ASHU GARCÍA @ 06/27/2020 01:12 PM Normal [facility] Comment on above: Order Comment: No: D o not add to previous draw CTA NECKon 06-27-2020 CTA NECK [facility] Department of Radiology [address] [place] [id number] Patient Name: CHIKI JUAREZ : 1945 Sex: M Age: Race: White Pt. Location: [id number] Patient Status: I Ordered Date: 06/27/2020 9:05:00 AM Completed Date: 06/27/2020 10:53 AM Requesting Provider: MARIA ELENA LEDESMA Attending Provider: MYA BHAKTA Report Copy To: Signs & Symptoms: Difficulty Swallowing History: See Comments Comments: Exam: CTA NECK CTA NECK 06/27/2020 10:53 AM CLINICAL INDICATIONS: Difficulty Swallowing TECHNOLOGIST COMMENTS: Difficulty Swallowing QUESTION FOR THE RADIOLOGIST: PROTOCOL: Axial CT angiography images were obtained with IV contrast. CONTRAST: Contrast: OMNIPAQUE 350 (LOCM), 100 milliliter, Intravenous TECHNIQUE: Multi-detector CT angiography axial slices of the neck were obtained during intravenous administration of IV contrast material. Sagittal, coronal, and 3-D reconstructions were performed and viewed on a separate workstation. The [place] Symptomatic Carotid Endarterectomy Trial (NASCET) method for calculating the degree of stenosis was utilized for stenosis measurements. COMPARISON: No prior studies FINDINGS: 2 vessel aortic arch with atherosclerotic calcifications. Atherosclerotic changes within the aortic arch. No aneurysmal dilatation. Common carotid arteries are patent bilaterally. Mild atherosclerotic calcification in the carotid bulbs. Proximal mid and distal portions of the internal carotid arteries are patent to the skull base. Vertebral artery origins are normal. Proximal mid and distal portions of both vertebral arteries are patent to the skull base. Centrilobular emphysematous changes in both upper lobes. No upper mediastinal adenopathy. Upper lobe scarring. No suspicious adenopathy. Degenerative changes in the lower cervical spine IMPRESSION: No significant stenosis in the carotid or vertebral circulation in the neck All CT scans at this facility use dose modulation, iterative reconstruction, and/or weight based dosing when appropriate to reduce radiation dose to as low as reasonably achievable Electronically signed: Ashu García. Transcribed by: [email or web address], User Resident: Electronically Signed by: ASHU GARCÍA @ 06/27/2020 01:08 PM Normal [facility] D DIMER TESTon 06-27-2020 D-DIMER TEST 0.39 mcg/mL FEU Normal 0.27-0.49 [facility] Comment on above: Order Comment: No: D o not add to previous draw Result Comment: D-Di fide values of less than 0.50 ug/ml (FEU) are considered to be a negative predictor of thrombosis. However, the D-Dimer result should be used in conjunction with pretest probability and should not be used alone to diagnose a thrombotic event. Performed By: #### 4 1000, [id number] #### [facility] [address] [place] [address], [facility] FERRITINon 06-27-2020 Ferritin [Mass/Vol] 250 ng/mL Normal 24-336 [facility] Comment on above: Order Comment: No: D o not add to previous draw Performed By: #### 4 1000, , [id number] #### [facility] [address] [place] [address], [facility] HEMOGLOBIN A1Con 06-27-2020 HbA1c (Bld) [Mass fraction] 134 mmol/L Normal [facility] Comment on above: Order Comment: No: D o not add to previous draw Performed By: #### 4 1000, , [id number] #### [facility] [address] [place] [address], [facility] HbA1c (Bld) [Mass fraction] 6.3 % High 4.0-6.0 [facility] Comment on above: Order Comment: No: D o not add to previous draw Performed By: #### 4 1000, , [id number] #### [facility] [address] [place] [address], [facility] LDH BLOODon 06-27-2020 LDH 213 Units/L Normal 140-271 [facility] Comment on above: Order Comment: No: D o not add to previous draw Performed By: #### 4 1000, 10705, 10852 #### [facility] [address] [place] [address], [facility] LIVER BATTERYon 06-27-2020 Albumin [Mass/Vol] 3.5 g/dL Normal 3.5-5.7 [facility] Comment on above: Order Comment: No: D o not add to previous draw Performed By: #### 4 1000, [id number], 06099 #### [facility] [address] [place] [address], [place] ALKALINE PHOSPH 62 IU/L Normal 34-104 [facility] Comment on above: Order Comment: No: D o not add to previous draw Performed By: #### 4 1000, , [id number] #### [facility] [address] [place] [address], [place] ALT [Catalytic activity/Vol] 11 U/L Normal 7-52 [facility] Comment on above: Order Comment: No: D o not add to previous draw Performed By: #### 4 1000, , [id number] #### [facility] [address] [place] [address], [place] AST [Catalytic activity/Vol] 10 U/L Low 13-39 [facility] Comment on above: Order Comment: No: D o not add to previous draw Performed By: #### 4 1000, , 22549 #### [facility] [address] [place] [address], [place] Bilirubin [Mass/Vol] 0.5 mg/dL Normal 0.3-1.0 [facility] Comment on above: Order Comment: No: D o not add to previous draw Performed By: #### 4 1000, , [id number] #### [facility] [address] [place] [address], [place] Bilirubin.direct [Mass/Vol] 0.2 mg/dL Normal 0.0-0.2 [facility] Comment on above: Order Comment: No: D o not add to previous draw Performed By: #### 4 1000, , 59713 #### [facility] [address] [place] [address], [place] Protein [Mass/Vol] 6.0 g/dL Normal 6.0-8.3 [facility] Comment on above: Order Comment: No: D o not add to previous draw Performed By: #### 4 1000, , 39812 #### [facility] [address] [place] [address], [place] MAGNESIUM BLOODon 06-27-2020 Magnesium [Mass/Vol] 2.3 mg/dL Normal 1.9-2.7 [facility] Comment on above: Order Comment: No: D o not add to previous draw Performed By: #### 4 1000, 03521, 45906 #### [facility] [address] [place] [address], [facility] POC GLUCOSE LABon 06-27-2020 Glucose [Mass/Vol] 103 mg/dL High 70-100 [facility] Comment on above: Performed By: #### 4 1000, 78544 #### [facility] [address] [place] [address], [facility] Glucose [Mass/Vol] 100 mg/dL Normal 70-100 [facility] Comment on above: Performed By: #### 4 1000, [id number] #### [facility] [address] [place] [address], [facility] POTASSIUM BLOODon 06-27-2020 Potassium [Moles/Vol] 4.5 mmol/L Normal 3.5-5.1 [facility] Comment on above: Order Comment: No: D o not add to previous draw Performed By: #### 4 1406 #### [facility] [address] [place] [address], [facility] PROTHROMBIN TIMEon 0 INR Coag (PPP) [Relative time] 1.05 {INR} Normal 0.91-1.16 [facility] Comment on above: Order Comment: No: D o not add to previous draw Result Comment: ACCC P RECOMMENDED INR FOR WARFARIN THERAPY ------- ------- CONDITION INR PROPHYLAXIS OF VENOUS THROMBOSIS 2-3 (HIGH-RISK SURGERY) TREATMENT OF VENOUS THROMBOSIS 2-3 TREATMENT OF PULMONARY EMBOLISM 2-3 PREVENTION OF SYSTEMIC EMBOLISM: 2-3 ACUTE MYOCARDIAL INFARCTION TISSUE HEART VALVES VALVULAR HEART DISEASE ATRIAL FIBRILLATION RECURRENT SYSTEMIC EMBOLISM MECHANICAL HEART VALVE 2.5-3.5 FROM: ORAL ANTICOAGULANTS. MECHANISM OF ACTION, CLINICAL EFFECTIVENESS, AND OPTIMAL THERAPEUTIC RANGE. CHEST 1995;108:231S-246S. Performed By: #### 4 1000, [id number] #### [facility] [address] PT Coag (PPP) [Time] 13.7 s Normal 12.3-14.8 [facility] Comment on above: Order Comment: No: D o not add to previous draw Result Comment: ALL RESULTS MUST BE INTERPRETED WITH RESPECT TO BLOOD DRAWING ARTIFACT OR DILUTION ERROR OF ANTICOAGULANT AT THE TIME OF SAMPLING. Performed By: #### 4 1000, 89869 #### [facility] [address] TSH3 WITH REFLEX FT4on 06-27 TSH 3RD GENERATION 0.86 uIU/mL Normal 0.34-5.60 [facility] Comment on above: Performed By: #### 4 1000, 39775, 29317 #### [facility] [address] VITAMIN B12on 06-27-2020 Cobalamin (Vitamin B12) [Mass/Vol] 3006 pg/mL High 180-914 [facility] Comment on above: Result Comment: REFE RENCE RANGES: 180-914 pg/mL Normal 145-179 pg/mL Indeterminate <145 pg/mL Deficient Performed By: #### 4 1000, 78399, 05241 #### [facility] [address] PHOSPHORUS BLOODon 0 Phosphate [Mass/Vol] 3.2 mg/dL Normal 2.5-5.0 [facility] Comment on above: Order Comment: No: D o not add to previous draw Performed By: #### 4 1000, [id number] #### [facility] [address] [place] [address], [facility] TROPONIN-Ion 06-26-2020 Troponin I.cardiac [Mass/Vol] 0.01 ng/mL Normal 0.00-0.04 [facility] Comment on above: Order Comment: No: D o not add to previous draw Result Comment: REFE RENCE RANGES: 0.00 - 0.04 ng/ml NORMAL 0.05 - 0.50 ng/ml INDETERMINATE > 0.50 ng/ml CONSISTENT WITH AN M.I. Performed By: #### 4 1000, 61144 #### [facility] [address] [employer] [address] Vital Signs Date Time Vital Sign Value Performing Clinician Facility 03-09-2023 10:50-0400 Blood Pressure Location Oni MCKEON [facility] 03-09-2023 10:50-0400 Diastolic blood pressure 70 mm[Hg] Oni MCKEON [facility] 03-09-2023 10:50-0400 Heart rate 71 /min Oni MCKEON [facility] 03-09-2023 10:50-0400 Respiratory rate 16 /min Oni MCKEON [facility] 03-09-2023 10:50-0400 Systolic blood pressure 109 mm[Hg] nOi MCKEON [facility] 01-09-2022 13:00-0400 Body height 172.7 cm Hosea Herrera MD Work Phone: [facility] 01-09-2022 13:00-0400 Body temperature 97.81 [degF] Hosea Herrera MD Work Phone: [facility] 01-09-2022 13:00-0400 Body weight 100.61 kg Hosea Herrera MD Work Phone: [facility] 01-09-2022 13:00-0400 Diastolic blood pressure 68 mm[Hg] Hosea Herrera MD Work Phone: [facility] 01-09-2022 13:00-0400 Heart rate 93 /min Hosea Herrera MD Work Phone: [facility] 01-09-2022 13:00-0400 Respiratory rate 18 /min Hosea Herrera MD Work Phone: [facility] 01-09-2022 13:00-0400 SaO2% (BldA) [Mass fraction] 93 % Hosea Herrera MD Work Phone: [facility] 01-09-2022 13:00-0400 Systolic blood pressure 95 mm[Hg] Hosea Herrera MD Work Phone: [facility] 11-19-2021 10:19-0400 Blood Pressure Location Romeo Vidal Jr. [facility] 11-19-2021 10:19-0400 Diastolic blood pressure 60 mm[Hg] Romeo Vidal Jr. [facility] 11-19-2021 10:19-0400 Heart rate 80 /min Romeo Vidal Jr. [facility] 11-19-2021 10:19-0400 Respiratory rate 16 /min Romeo Vidal Jr. [facility] 11-19-2021 10:19-0400 Systolic blood pressure 113 mm[Hg] Romeo Vidal Jr. [facility] [place] Encounters Encounter Date Encounter Type Care Provider Facility Start: 03-14-2024 ambulatory Oni Salasi ty:[facility] [place] Start: 01-22-2024 ambulatory Marlys Olivia Facility: [facility] Start: 08-24-2023 ambulatory Pito Patterson Facility :[facility] Start: 08-03-2023 End: 08-04-2023 ambulatory Pito Patterson Facility:[facility] Start: 07-30-2023 End: 07-30-2023 ambulatory PITO PATTERSON Facility:[facility] Start: 07-28-2023 End: 07-28-2023 ambulatory [facility] Start: 07-23-2023 End: 07-23-2023 ambulatory PITO PATTERSON Facility:[facility] Start: 07-16-2023 End: 07-16-2023 ambulatory BERT ACEVEDO Not Available Start: 05-28-2023 End: 05-29-2023 ambulatory Pito Patterson Facility:[facility] Start: 05-21-2023 End: 05-21-2023 ambulatory ANASTASIA [facility] Start: 05-11-2023 End: 05-12-2023 ambulatory Pito Patterson Facility:[facility] Start: 03-31-2023 End: 03-31-2023 ambulatory [facility] Start: 03-31-2023 End: 04-01-2023 ambulatory Oni MCKEON Facility:[facility] Start: 03-31-2023 End: 03-31-2023 Patient encounter procedure Oni MCKEON [facility] Start: 03-09-2023 End: 03-10-2023 ambulatory Oni MCKEON Facility:[facility] Start: 03-09-2023 End: 03-10-2023 ambulatory Oni MCKEON Facility:[facility] Start: 03-09-2023 End: 03-09-2023 Patient encounter procedure Oni MCKEON [facility] [place] Start: 01-26-2023 End: 01-27-2023 ambulatory Marlys L Corwin Facility:[facility] Start: 01-26-2023 End: 01-26-2023 Lab Drop off Marlys L Corwin [facility] Start: 01-22-2023 End: 01-23-2023 ambulatory Marlys L Corwin Facility:[facility] Start: 01-22-2023 End: 01-23-2023 ambulatory Marlys L Corwin Facility:[facility] Start: 01-16-2023 End: 01-17-2023 ambulatory Pito Patterson Facility:[facility] Start: 01-09-2023 ambulatory Oni MCKEON Facili ty: [facility] Start: 11-28-2022 End: 11-28-2022 ambulatory [facility] Start: 10-28-2022 End: 10-29-2022 ambulatory Pito Patterson Facility:[facility] [place] Start: 10-24-2022 ambulatory Pito Patterson Facility :[facility] Start: 10-14-2022 End: 10-14-2022 ambulatory [facility] Start: 08-05-2022 Telephone encounter Lynsey Diaz RN Hematology/Oncology Comment on above: Results Start: 07-24-2022 Telephone encounter Tyler cadena MD Work Phone: [facility] Comment on above: Appointment Start: 04-22-2022 End: 04-23-[address] WILL SEHRWOOD Facility:[facility] Start: 04-16-2022 End: 04-17-[address] DANIELLA EASTON Facility:[facility] Start: 04-14-2022 End: 04-15-[address] DANIELLA EASTON Facility:[facility] Start: 02-19-2022 End: 02-20-[address] WILL SHERWOOD Facility:[facility] Start: 02-10-2022 End: 02-11-[address] WILL SHERWOOD Facility:[facility] Start: 02-05-2022 End: 02-06-[address] WILL SHERWOOD Facility:[facility] Start: 01-16-2022 End: 01-16-2022 ambulatory Hosea Herrera MD Work Phone: Hematology/Oncology Comment on above: 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); Macrocytic anemia Start: 01-16-2022 End: 01-16-2022 Telemedicine consultation with patient Hosea Herrera MD Work Phone: [facility] Start: 01-09-2022 End: 01-09-2022 ambulatory Hosea Herrera MD Work Phone: Hematology/Oncology Comment on above: 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) Start: 01-09-2022 End: 01-09-2022 Patient encounter procedure Hosea Herrera MD Work Phone: [facility] Start: 01-07-2022 Telephone encounter Hosea Herrera MD Work Phone: Hematology/Oncology Comment on above: Lab Orders Start: 01-07-2022 End: 01-08-[address] WILL SHERWOOD Facility:[facility] Start: 11-19-2021 End: 11-19-2021 Patient encounter procedure Romeo Vidal Jr. [facility] Start: 09-24-2021 End: 09-25-[address] WILL SHERWOOD Facility:[facility] Start: 09-10-2021 End: 09-11-[address] WILL SHERWOOD Facility:[facility] Start: 09-09-2021 End: 09-10-[address] WILL SHERWOOD Facility:[facility] Start: 09-06-2021 End: 10-10-[address] WILL SHERWOOD Facility:[facility] Start: 09-05-2021 End: 09-06-[address] HERRERA [facility] Facility:[facility] Start: 07-30-2021 End: 07-31-[address] DOCTOR SANCHES Facility:[facility] Start: 07-30-2021 End: 08-16-[address] DOCTOR SANCHES Facility:[facility] Start: 07-24-2021 End: 07-25-2021 ambulatory CRISTÓBAL NGO Facility:[facility] Start: 06-25-2021 End: 06-26-2021 ambulatory PITO PATTERSON Facility:[facility] Start: 06-07-2021 End: 06-08-[address] WILL SHERWOOD Facility:[facility] Start: 05-16-2021 End: 05-16-[address] TAMIKO PAREDES Facility:[facility] Start: 05-15-2021 End: 05-16-[address] WILL SHERWOOD Facility:[facility] Start: 05-14-2021 End: 05-15-[address] WILL SHERWOOD Facility:[facility] Start: 04-29-2021 End: 04-30-[address] WILL SHERWOOD Facility:[facility] Start: 06-26-2020 End: 06-30-2020 Evaluation and management of inpatient CRESCENCIO FLETCHER Facility:[facility] Procedures Date Procedure Procedure Detail Performing Clinician Start: 01-09-2022 Adult depression scr eening assessment Hosea Herrera MD Work Phone: Start: 01-07-[address] WILL LINDA Comment on above: Performed By: #### P SAD ####[place] [id number] [place] [id number]. Trevor Nichols Start: 06-28-2020 INSERT PACE. DUAL CH AM IN CHEST SUBCU/FASCIA, OPEN CONNOR CARRERA Start: 06-28-2020 INSERTION OF PACEMAK ER LEAD INTO R VENTRICLE, PERC APPROACH CONNOR CARRERA Start: 06-28-2020 INSERTION OF PACEMAK ER LEAD INTO RIGHT ATRIUM, PERC APPROACH CONNOR CARRERA Start: 06-27-2020 INTRODUCTION OF OTHE R GAS INTO RESP TRACT, VIA OPENING MYA BHAKTA Start: 08-17-2019 Cardiac pacemaker, d evice (physical object) Oni MCKEON Start: 03-10-2019 Transrectal biopsy o f prostate using ultrasound guidance Romeo Vidal Jr. Start: 03-12-2010 Transurethral cystoscopy Romeo Vidal Jr. Start: 08-17-2006 Excision of sentinel lymph node Romeo Vidal Jr. Plan of Treatment Date Care Activity Detail Author Start: 07-18-2025 DIABETES SCREEN DIABETES SCREEN [facility] Start: 01-09-2025 DIABETES SCREEN DIABETES SCREEN [facility] Start: 01-09-2023 Adult depression screening assessment DEPRESSION SCREENING [facility] Start: 07-18-2022 End: 09-17-2022 CBC panel - Blood by Automated count CBC Lab Routine MGUS (monoclonal gammopathy of unknown significance) Expected: 07/18/2022 (Approximate), Expires: 09/17/2022 [facility] Work Phone: Comment on above: Expected: 07/18/2022 (Approximate), Expires: 09/17/2022 Start: 07-18-2022 End: 09-17-2022 Comprehensive metabolic 2000 panel - Serum or Plasma COMP METABOLIC PANEL Lab Routine MGUS (monoclonal gammopathy of unknown significance) Expected: 07/18/2022 (Approximate), Expires: 09/17/2022 [facility] Work Phone: Comment on above: Expected: 07/18/2022 (Approximate), Expires: 09/17/2022 Start: 07-18-2022 End: 09-17-2022 MONOCLONAL PROTEIN, SERUM (BLOOD) MONOCLONAL PROTEIN, SERUM (BLOOD) Lab Routine MGUS (monoclonal gammopathy of unknown significance) Expected: 07/18/2022 (Approximate), Expires: 09/17/2022 [facility] Work Phone: Comment on above: Expected: 07/18/2022 (Approximate), Expires: 09/17/2022 Start: 07-18-2022 End: 09-17-2022 PROTEIN ELECTROPHORESIS SERUM W/INTERP PROTEIN ELECTROPHORESIS SERUM W/INTERP Lab Routine MGUS (monoclonal gammopathy of unknown significance) Expected: 07/18/2022 (Approximate), Expires: 09/17/2022 [facility] Work Phone: Comment on above: Expected: 07/18/2022 (Approximate), Expires: 09/17/2022 Start: 05-06-2022 COVID-19 VACCINE (5 - Booster for Pfizer series) COVID-19 VACCINE (5 - Booster for Pfizer series) [facility] Start: 04-17-2022 Influenza vaccination INFLUENZA (#1) [facility] Start: 09-25-2021 COVID-19 VACCINE (4 - Booster for Pfizer series) COVID-19 VACCINE (4 - Booster for Pfizer series) [facility] Start: 08-17-2021 ADVANCE DIRECTIVE DISCUSSION ADVANCE DIRECTIVE DISCUSSION [facility] Start: 08-17-2021 DEPRESSION ASSESSMENT DEPRESSION ASS ESSMENT [facility] Start: 1997 SHINGRIX VACCINE (1 of 2) [place] GRIX VACCINE (1 of 2) [facility] Start: 1992 COLOGUARD (FIT-DNA) COLOGUARD (FIT-D NA) [facility] Start: 1992 Colonoscopy COLONOSCOPY [facility] Start: 1992 COLORECTAL CANCER SCREENING COLORECTAL CANCER SCREENING [facility] Start: [address] COLONOGRAPHY [facility] Start: 1992 FECAL OCCULT BLOOD FECAL OCCULT BLOO D [facility] Start: 1992 SIGMOIDOSCOPY SIGMOIDOSCOPY [facility] Start: 1982 LIPID SCREEN LIPID SCREEN [facility] Start: 1966 SHINGRIX VACCINE (1 of 2) [place] GRIX VACCINE (1 of 2) [facility] Start: 1966 Urine microalbumin profile DTAP,TDAP,TD (1 - Tdap) [facility] Start: 1965 HEPATITIS C SCREENING HEPATITIS C SC REENING [facility] Start: 1947 ABDOMINAL AORTIC ANE URYSM SCREENING ABDOMINAL AORTIC ANEURYSM SCREENING [facility] CBC W Auto Different ial panel - Blood CBC + DIFF Lab Routine B12 deficiency Diffuse large B-cell lymphoma, unspecified body region (HCC) 01/09/2022 1:40 PM EDT [facility] Work Phone: [facility] Immunizations Immunization Date Immunization Notes Care Provider Eric garcia 03-11-2022 SARS-CoV-2 mRNA ([id number] e) vaccine Marlys Olivia [facility] 06-25-2021 SARS-CoV-2 (COVID-19 ) mRNA BNT-162b2 vax Marlys Corwin [facility] 05-24-2021 influenza virus vacc ine, unspecified formulation Marlys Corwin [facility] 11-13-2020 COVID-19 vaccine, ag e 12+ yr (PFIZER-[facility]ION[employer] - [facility]) Hosea Herrera MD Work Phone: [facility] 10-22-2020 COVID-19 vaccine, ag e 12+ yr ([facility]-[employer] - [facility]) Hosea Herrera MD Work Phone: [facility] 07-24-2020 zoster vaccine recombinant Marlys Corwin [facility] 05-09-2020 influenza virus vacc ine, unspecified formulation Marlys Corwin [facility] 05-09-2020 tetanus toxoid, redu juvencio diphtheria toxoid, and acellular pertussis vaccine, adsorbed Marlys Corwin [facility] 05-09-2020 zoster vaccine recombinant Marlys Corwin [facility] 04-16-2019 influenza virus vacc ine, unspecified formulation Marlys Corwin [facility] 05-25-2018 influenza virus vacc ine, unspecified formulation Marlys Corwin [facility] 05-25-2018 influenza, injectabl e, quadrivalent, preservative free Hosea Herrera MD Work Phone: [facility] 05-25-2018 pneumococcal polysaccharide vaccine, 23 valent Hosea Herrera MD Work Phone: [facility] 04-26-2018 influenza virus vacc ine, unspecified formulation Malrys Corwin [facility] 04-26-2018 influenza, high dose seasonal, preservative-free Hosea Herrera MD Work Phone: [facility] 04-26-2018 pneumococcal polysaccharide vaccine, 23 valent Hosea Herrera MD Work Phone: [facility] 08-04-2017 influenza virus vacc ine, unspecified formulation Marlys Corwin [facility] 08-04-2017 influenza, high dose seasonal, preservative-free Hosea Herrera MD Work Phone: [facility] 08-04-2017 pneumococcal conjuga te vaccine, 13 valent Hosea Herrera MD Work Phone: [facility] influenza vaccine qs 240 mcg, Patients 65 years and older,, PF, (FLUZONE HIGHDOSE QUAD 20-21 PF) 240 mcg/0.7 mL injection Hosea Herrera MD Work Phone: [facility] Comment on above: Fluzone High-Dose Qu ad 2020-21 (PF) 240 mcg/0.7 mL IM syringe PHARMACY ADMINISTERED influenza vaccine qs 240 mcg, Patients 65 years and older,, PF, (FLUZONE HIGHDOSE QUAD 20-21 PF) 240 mcg/0.7 mL injection Tyler Draper MD Work Phone: [facility] Comment on above: Fluzone High-Dose Qu ad 2020-21 (PF) 240 mcg/0.7 mL IM syringe PHARMACY ADMINISTERED Payers Date Payer Category Payer Medicare [id number] 2022 Private Health Insurance [id number] 2014 Medicare AETNA MEDICARE A ETNA MEDICARE PPO [id number] 2014-Present [phone] [address] [place] [address] PPO [id number] 2014 Medicare AETNA MEDICARE A ETNA MEDICARE PPO [id number] 2014-Present [phone] [address] [place] [address] PPO [id number] 1959 Medicare [id number] 1959 Private Health Insurance [facility] [id number] 1959 Self-pay 1947 Unknown [id number] 2.16.840.1.785059.3.579.2.6 47 1947 Unknown [id number] 2.16.840.1.672532.3.579.2.5 93 1947 Unknown [id number] 2.16.840.1.924126.3.579.2.5 93 1947 Unknown [id number] 2.16.840.1.797677.3.579.2.5 93 1947 Unknown [id number] 2.16.840.1.328523.3.579.2.5 93 1947 Unknown [id number] 2.16.840.1.033572.3.579.2.5 93 1947 Unknown [id number] 2.16.840.1.352376.3.579.2.5 93 1947 Unknown [id number] 2.16.840.1.909641.3.579.2.5 93 1947 Unknown [id number] 2.16.840.1.037788.3.579.2.5 93 1947 Unknown [id number] 2.16.840.1.674259.3.579.2.5 93 1947 Unknown [id number] 2.16.840.1.225248.3.579.2.5 93 1947 Unknown [id number] 2.16.840.1.689341.3.579.2.5 93 1947 Unknown [id number] 2.16.840.1.370655.3.579.2.5 93 1947 Unknown [id number] 2.16.840.1.025247.3.579.2.5 93 1947 Unknown [id number] 2.16.840.1.884733.3.579.2.5 93 1947 Unknown [id number] 2.16.840.1.928455.3.579.2.5 93 1947 Unknown [id number] 2.16.840.1.829848.3.579.2.5 93 1947 Unknown [id number] 2.16.840.1.823084.3.579.2.5 93 1947 Unknown [id number] 2.16.840.1.803038.3.579.2.5 93 1947 Unknown [id number] 2.16.840.1.532061.3.579.2.5 93 1947 Unknown [id number] 2.16.840.1.561709.3.579.2.5 93 1947 Unknown [id number] 2.16.840.1.307207.3.579.2.1 259 1947 Unknown [id number] 2.16.840.1.216904.3.579.2.7 27 1947 Unknown [id number] 2.16.840.1.630059.3.579.2.7 27 1947 Unknown [id number] 2.16.840.1.165483.3.579.2.7 27 1947 Unknown [id number] 2.16.840.1.152481.3.579.2.7 27 1947 Unknown [id number] 2.16.840.1.170093.3.579.2.7 27 1947 Unknown [id number] 2.16.840.1.394781.3.579.2.7 27 1947 Unknown [id number] 2.16.840.1.176357.3.579.2.7 27 1947 Unknown [id number] 2.16.840.1.663380.3.579.2.7 27 1947 Unknown [id number] 2.16.840.1.073767.3.579.2.7 27 1947 Unknown [id number] 2.16.840.1.942873.3.579.2.7 27 1947 Unknown [id number] 2.16.840.1.647232.3.579.2.7 27 1947 Unknown [id number] 2.16.840.1.449193.3.579.2.7 27 1947 Unknown [id number] 2.16.840.1.292531.3.579.2.7 27 1947 Unknown [id number] 2.16.840.1.531706.3.579.2.7 27 1947 Unknown [id number] 2.16.840.1.067202.3.579.2.7 1947 Unknown [id number] 2.16.840.1.098254.3.579.2.7 27 1947 Unknown [id number] 2.16.840.1.944098.3.579.2.7 27 Unknown [id number] 2.16.840.1.333237.3.579.2.5 93 Social History Date Type Detail Facility Start: 11-19-2021 End: 01-22-2023 Tobacco smoking status Ex-smoker (finding) [facility] Sex Assigned At Male [facility] End: 09-06-1988 History of tobacco use Current smoker [facility] Start: 09-06-2012 End: 07-31-2022 Cigarettes smoked current (pack per day) - Reported 1 [facility] Start: 09-06-2012 End: 07-31-2022 Tobacco use and exposure Smokeless tobacco non-user [facility] Start: 01-09-2022 End: 07-31-2022 Alcohol intake Current drinker of alcohol (finding) [facility] Start: 04-05-2019 History SDOH Alcohol Comment rare [facility] Start: 1945 Sex Assigned At Not on file [facility] Start: 12-30-2021 End: 01-09-2022 Exposure to SARS-CoV-2 (event) Not sure [facility] End: 09-06-1988 History of tobacco use Cigarette Smoker [facility] History of tobacco use Passive smoker [facility] Functional Status Date Assessment Result Facility 03-09-2023 Functional Status N/A [facility] Clinical Notes 11-19-2021 to 07-30-2023 Telephone Encounter - Lynsey Diaz RN - 08/05/2022 1:46 PM ESTTelephone Encounter - Lynsey Diaz RN - 08/05/2022 1:45 PM ESTTelephone Encounter - Kavitha Trevino - 07/25/2022 11:25 AM EST Note Date & Type Note Facility 07-30-2023 Note HNO ID: [id number] Author: Tyelr Draper MD Service: ? Author Type: Physician Type: Progress Notes Filed: 07/30/2023 7:39 PM Note Text: PATIENT NAME: Chiki Juarez DATE: 07/30/2023 PRIMARY CARE PHYSICIAN: Dr. Pito Patterson OTHER PHYSICIANS: Dr. Mayra Berg ([facility]) Portions of this encounter note have been copied from my note from 07/21/2022 and has been updated where appropriate, and reflect my current medical decision making from today. CC: This is a 78 year old male with a history of MGUS, seen for scheduled follow-up (prior patient of Dr. Herrera). INTERIM HISTORY: Since the patient's last visit here he has had no significant medical changes. 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 No new neurological symptoms. He has intermittent cough and shortness of breath from bronchitis/bronchiectasis. No fevers, night sweats, or weight loss. No unusual pain. MEDICATIONS: albuterol (PROVENTIL) 2.5 mg /3 mL (0.083 %) nebulizer solution albuterol sulfate 2.5 mg/3 mL (0.083 %) solution for nebulization INHALE 1 VIAL VIA NEBULIZER EVERY 4 HOURS amoxicillin (POLYMOX, AMOXIL) 500 mg capsule Take 500 mg by mouth. (Patient not taking: Reported on 07/31/2022) cephALEXin (KEFLEX) 500 mg capsule Take 500 mg by mouth. potassium chloride SR (MICRO-K) 10 mEq CR capsule furosemide (LASIX) 20 mg tablet q 24 HR. ferrous sulfate 325 mg (65 mg iron) tablet influenza vaccine qs 240 mcg, Patients 65 years and older,, PF, (FLUZONE HIGHDOSE QUAD 20-21 PF) 240 mcg/0.7 mL injection Fluzone High-Dose Quad 2019-21 (PF) 240 mcg/0.7 mL IM syringe PHARMACY ADMINISTERED cholecalciferol (VITAMIN D3) 1,000 unit tab tablet Take 1,000 Units by mouth. METOPROLOL SUCCINATE ORAL Take 25 mg by mouth once daily. doxycycline hyclate (VIBRAMYCIN) 100 mg capsule Take 100 mg by mouth once daily. salmeterol (SEREVENT DISKUS) 50 mcg/dose diskus inhaler Inhale 1 Puff as instructed twice daily. predniSONE (DELTASONE) 10 mg tablet Take 10 mg by mouth once daily. aspirin, enteric coated (ASPIRIN, ENTERIC COATED) 81 mg EC tablet Take 81 mg by mouth once daily. acetaminophen-codeine (TYLENOL-COD #3) 300-30 mg per tablet acetaminophen 300 mg-codeine 30 mg tablet budesonide (PULMICORT) 0.5 mg/2 mL nebulizer solution 2 mL. indacaterol (ARCAPTA NEOHALER) 75 mcg CpDv Arcapta Neohaler 75 mcg capsule with inhalation device ipratropium-albuterol (DUONEB) 0.5 mg-3 mg(2.5 mg base)/3 mL nebu INHALE 1 VIAL VIA NEBULIZER EVERY 6 HOURS NEEDED *DX J44.9* spironolactone (ALDACTONE) 50 mg tablet spironolactone 50 mg tablet tiotropium (SPIRIVA WITH HANDIHALER) 18 mcg inhalation capsule CALCIUM CITRATE-VITAMIN D3 ORAL Take by mouth. cyanocobalamin, vitamin B-12, (VITAMIN B-12 ORAL) Take by mouth. polyethylene glycol 3350 (MIRALAX, GLYCOLAX) 17 gram/dose powder MIX 1 TABLESPOONFUL DIRECTED AND DRINK EVERY DAY PROAIR HFA 90 mcg/actuation inhaler Inhale 1 Puff as instructed as needed. levothyroxine (SYNTHROID) 100 mcg tablet Take 100 mcg by mouth daily before breakfast. 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 HEENT: Negative for frequent or significant headaches, No changes in hearing or vision, no nose bleeds or other nasal problems RESPIRATORY: Negative for cough, wheezing or shortness of breath. CARDIOVASCULAR: Negative for chest pain, leg swelling or palpitations. GI: Negative for abdominal discomfort, blood in stools or black stools or change in bowel habits : No history of dysuria, frequency or incontinence MUSCULOSKELETAL: Negative for: joint pain or swelling, back pain and muscle pain SKIN: Negative for lesions, rash, and itching. HEMATOLOGY/LYMPHOLOGY: Negative for prolonged bleeding, bruising easily or swollen nodes. NEURO: No history of headaches, syncope, paralysis, seizures or tremors PHYSICAL EXAM: Vitals: BP 143/63 Pulse 85 Temp 36.3 ?C (97.4 ?F) (Temporal) Resp 16 Ht 172.7 cm (5' 7.99 ) Wt 97.9 kg (215 lb 13.3 oz) SpO2 90% BMI 32.82 kg/m? General appearance: well appearing, alert, in no acute distress, well-hydrated, well nourished Skin: skin color, texture, turgor normal, no suspicious rashes or lesions Head: normal Eyes: Anicteric sclera. Pupils are equally round and reactive to light. Extraocul (more content not included)... [facility] 07-28-2023 Note [place] Cardiology - [facility] Subjective Chiki Issa Juarez is a 78 y.o. year old male patient being seen per Dr. Mayra Berg of pulmonary medicine at [facility] to discuss possible increase in diuretic. says his breathing has been very labored lately. He was on steroids for awhile, and those helped, but once course was finished he was very SOB again. Denies chest pain and palpitations. SOB is much worse from previous few months he says. Patient Active Problem List Diagnosis Complete AV block (CMS/HCC) History of cerebrovascular accident Cardiac pacemaker in situ Mixed hyperglyceridemia B12 deficiency Benign essential tremor Benign prostatic hyperplasia with urinary obstruction Bilateral leg edema Cerebrovascular accident (CVA) (CMS/HCC) Compression fracture of vertebra (CMS/HCC) Cough Diffuse large B cell lymphoma (CMS/HCC) Dyspnea Former smoker Hearing loss High prostate specific antigen (PSA) History of malignant neoplasm of prostate History of B-cell lymphoma Hypothyroidism COPD with asthma Kidney stone Left temporal lobe infarction (CMS/HCC) Lymphoma (CMS/HCC) Malignant neoplasm of prostate (CMS/HCC) Microscopic hematuria Nasal congestion Neuropathy, arm Severe obesity (BMI 35.0-39.9) with comorbidity (CMS/HCC) Poor urinary stream Ventral hernia Recurrent pneumonia Prostate nodule Abnormal CT scan Chronic diastolic heart failure (CMS/HCC) Chronic sinusitis Edema of both upper arms Pulmonary hypertension (CMS/HCC) 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CMS/HCC) Wheezing Family History Problem Relation Name Age of Onset Stroke Father Social History Tobacco Use Smoking status: Former Types: Cigarettes Substance Use Topics Alcohol use: Never GILDA Chiki is seen in follow-up. He is a 78-year-old man with prior history of COPD and is currently followed at [facility]. He takes multiple inhalers. In June 2020 he was admitted with COVID-19 infection and had a cerebrovascular accident with resultant difficulty speaking. At that time he was also found to have complete heart block and underwent dual-chamber pacemaker implantation. He also had COVID again in 09/2020. In January 2022 he was evaluated in our office and was instructed to increase his Lasix to twice daily for 3 days and then back to once daily. He reports that his lower extremity swelling has improved a little bit with this maneuver. Of note that his BMP was normal. I saw him on 02/10/2022. I checked an echocardiogram due to his shortness of breath. This showed mildly elevated right-sided pressures. At last visit of 04/07/2022 I checked a stress test to investigate his shortness of breath on exertion and increased his furosemide to 40 mg daily. his stress test was negative for ischemia. He does have lower extremity edema and worsening shortness of breath. He recently was seen at [facility] pulmonary and was recommended to follow-up with cardiology as a potential etiology of his shortness of breath and to possibly increase the diuretic regimen. Today he denies chest pain. He has shortness of breath on exertion, NYHA class III-IV. His lower extremity is about the same and appears that it has been chronic. Review of Systems Cardiovascular: Positive for dyspnea on exertion (worsening) and leg swelling. Respiratory: Positive for cough and shortness of breath. Hematologic/Lymphatic: Bruises/bleeds easily. Neurological: Positive for headaches and light-headedness (with coughing spells). All other systems reviewed and are negative. Objective Visit Vitals BP 116/63 (BP Location: Left arm, Patient Position: Sitting) Pulse 92 Ht 1.626 m (5' 4 ) Wt 98.4 kg (217 lb) SpO2 91% BMI 37.25 kg/m??? Smoking Status Former BSA 2.11 m??? Physical Exam Constitutional: Appearance: He is well-developed. He is obese. He is not ill-appearing. HENT: Head: Normocephalic and atraumatic. Nose: Nose normal. Eyes: General: No scleral icterus. Pupils: Pupils are equal, round, and reactive to light. Neck: Thyroid: No thyromegaly. Vascular: No JVD. Cardiovascular: Rate and Rhythm: Normal rate and regular rhythm. Heart sounds: Normal heart sounds. No murmur heard. No friction rub. No gallop. Pulmonary: Effort: Pulmonary effort is normal. No respiratory distress. Breath sounds: Normal breath sounds. Decreased air movement present. No wheezing or rales. Chest: Chest wall: No tenderness. Abdominal: General: Bowel sounds are normal. There is no distension. Palpations: Abdomen is soft. Tenderness: There is no abdominal tenderness. Musculoskeletal: General: No swelling. Cervical back: Neck supple. Right lower le+ Pitting Edema present. Left lower le+ Pitting Edema present. Skin: General: Skin is warm and dry. Neurological: General: No focal deficit present. Mental Status: He is alert and (more content not included)... [facility] 05-21-2023 Note Cardiovascular Medic [facility] SUBJECTIVE Chief Complaint Patient presents with Congestive Heart Failure NSVT AV block s/p PPM Chiki Juarez is a 78 y.o. male here for routine follow-up. HPI PMHx: NSVT, chronic diastolic heart failure, pulmonary hypertension, and complete AV block, CVA, COPD (follows with [facility]). 05/21/2023 He denies any changes since last seen. At his last visit we had increased his Torprol due to NSVT noted on his device check. He has tolerated this without issues. He gets some leg swelling during the day that improves by the AM. He denies any CP, orthopnea, PND, palpitations, dizziness/LH, syncope. Patient Active Problem List Diagnosis Complete AV block (CMS/HCC) History of cerebrovascular accident Cardiac pacemaker in situ Mixed hyperglyceridemia B12 deficiency Benign essential tremor Benign prostatic hyperplasia with urinary obstruction Bilateral leg edema Cerebrovascular accident (CVA) (CMS/HCC) Compression fracture of vertebra (CMS/HCC) Cough Diffuse large B cell lymphoma (CMS/HCC) Dyspnea Former smoker Hearing loss High prostate specific antigen (PSA) History of malignant neoplasm of prostate History of B-cell lymphoma Hypothyroidism COPD with asthma Kidney stone Left temporal lobe infarction (CMS/HCC) Lymphoma (CMS/HCC) Malignant neoplasm of prostate (CMS/HCC) Microscopic hematuria Nasal congestion Neuropathy, arm Severe obesity (BMI 35.0-39.9) with comorbidity (CMS/HCC) Poor urinary stream Ventral hernia Recurrent pneumonia Prostate nodule Past Medical History: Diagnosis Date Abnormal ECG Hyperlipidemia Stroke (CMS/HCC) Family History Problem Relation Name Age of Onset Stroke Father Social History Tobacco Use Smoking status: Former Types: Cigarettes Substance Use Topics Alcohol use: Never No Known Allergies ROS Cardiovascular: Positive for dyspnea on exertion and leg swelling (resolves by morning). Respiratory: Positive for shortness of breath. Hematologic/Lymphatic: Bruises/bleeds easily. Neurological: Positive for headaches and light-headedness (positional). All other systems reviewed and are negative. OBJECTIVE Visit Vitals BP 117/68 (BP Location: Left arm, Patient Position: Sitting) Pulse 78 Ht 1.626 m (5' 4 ) Wt 97.5 kg (215 lb) SpO2 93% BMI 36.90 kg/m??? Smoking Status Former BSA 2.1 m??? Medications: Current Outpatient Medications: albuterol 90 mcg/actuation inhaler, ProAir HFA 90 mcg/actuation aerosol inhaler Inhale 2 puffs every 4 hours by inhalation route., Disp: , Rfl: aspirin 81 mg chewable tablet, in the morning., Disp: , Rfl: budesonide (Pulmicort) 0.5 mg/2 mL nebulizer solution, budesonide 0.5 mg/2 mL suspension for nebulization, Disp: , Rfl: cholecalciferol (Vitamin D-3) 25 MCG (1000 UT) tablet, Take 1,000 Units by mouth in the morning., Disp: , Rfl: furosemide (Lasix) 40 mg tablet, Take 1 tablet (40 mg) by mouth in the morning., Disp: 90 tablet, Rfl: 3 levothyroxine (Synthroid, Levoxyl) 100 mcg tablet, Synthroid 100 mcg tablet Take 1 tablet every day by oral route., Disp: , Rfl: metoprolol succinate XL (Toprol-XL) 25 mg 24 hr tablet, Take 1 tablet (25 mg) by mouth at bedtime. Do not crush or chew., Disp: 90 tablet, Rfl: 3 potassium chloride ER (Micro-K) 10 mEq ER capsule, potassium chloride ER 10 mEq capsule,extended release TAKE 1 TABLET BY MOUTH DAILY WITH FUROSEMIDE, Disp: , Rfl: salmeterol (Serevent Diskus) 50 mcg/dose diskus inhaler, Serevent Diskus 50 mcg/dose powder for inhalation, Disp: , Rfl: tiotropium (Spiriva with HandiHaler) 18 mcg inhalation capsule, Spiriva with HandiHaler 18 mcg and inhalation capsules, Disp: , Rfl: Physical Exam Constitutional: Appearance: Normal appearance. He is obese. HENT: Head: Normocephalic and atraumatic. Right Ear: External ear normal. Left Ear: External ear normal. Eyes: Extraocular Movements: Extraocular movements intact. Pupils: Pupils are equal, round, and reactive to light. Neck: Vascular: No carotid bruit. Cardiovascular: Rate and Rhythm: Normal rate and regular rhythm. Pulses: Normal pulses. Heart sounds: Normal heart sounds. Pulmonary: Effort: Pulmonary effort is normal. Breath sounds: Normal breath sounds. Abdominal: General: Bowel sounds are normal. Palpations: Abdomen is soft. Musculoskeletal: General: Normal range of motion. Cervical back: Neck supple. Right lower leg: Edema present. Left lower leg: Edema present. Comments: Trace BLE edema Skin: General: Skin is warm and dry. Neurological: General: No focal deficit present. Mental Status: He is alert and oriented to person, place, and time. Psychiatric: Mood and Affect: Mood normal. Behavior: Behavior normal. Thought Content: Thought content normal. Judgment: Judgment normal. Labs: Blood testing 04/22/2022: Potassium 4.0, BUN 22, creatinine 1.49, EGFR 46. Legacy Enc (more content not included)... [facility] 05-21-2023 Note Patient here for 6 m o follow up NSVT, chronic diastolic heart failure, pulmonary hypertension, and complete AV block. Device was routinely interrogated in Mar 2023. Denies chest pain and palpitations. Sees Dr. Berg at [facility] for pulmonology. Doing well from cardiac standpoint. Review of Systems Cardiovascular: Positive for dyspnea on exertion and leg swelling (resolves by morning). Respiratory: Positive for shortness of breath. Hematologic/Lymphatic: Bruises/bleeds easily. Neurological: Positive for headaches and light-headedness (positional). All other systems reviewed and are negative. [facility] 03-31-2023 Note [id number] [facility] 03-31-2023 Hospital Discharge instructions Patient Education 03/31/2023 11:58:22 [facility] - Cystoscopy Discharge Instructions (CUSTOM) Cystoscopy Voiding after the procedure: there may be some pain, burning, urgency, frequency and blood tinged urine following the procedure. These symptoms usually resolve within 2-5 days. Drink the amount of fluid it takes to keep the urine pink to yellow or clear in color. Drinking enough water and fluids will help to ease any discomfort after your procedure. If you are having problems that seem out of the ordinary, please call. If unable to contact your physician and you feel it is an emergency, go to the nearest emergency room or call 911 Diet you may resume your normal diet. Activity you may resume your normal activities Call if you have a fever over 100 degrees. Follow Up Care 03/09/2023 12:24:55 With:Oni MCKEON Address: [facility] [address] [place] [address]- Business (1) When:03/31/2024 11:58:05 Comments:With a renal ultrasound [facility] 03-31-2023 Note Custom Cystoscopy ? Voiding after the procedure: there may be some pain, burning, urgency, frequency and blood tinged urine following the procedure. These symptoms usually resolve within 2-5 days. Drink the amount of fluid it takes to keep the urine pink to yellow or clear in color. Drinking enough water and fluids will help to ease any discomfort after your procedure. ? If you are having problems that seem out of the ordinary, please call. ? If unable to contact your physician and you feel it is an emergency, go to the nearest emergency room or call 911 ? Diet ? you may resume your normal diet. ? Activity ? you may resume your normal activities ? Call if you have a fever over 100 degrees. [facility] 03-09-2023 Hospital Discharge instructions Patient Education 03/09/2023 11:45:48 Benign Prostatic Hyperplasia Benign Prostatic Hyperplasia Benign prostatic hyperplasia (BPH) is an enlarged prostate gland that is caused by the normal aging process. The prostate may get bigger as a man gets older. The condition is not caused by cancer. The prostate is a walnut-sized gland that is involved in the production of semen. It is located in front of the rectum and below the bladder. The bladder stores urine. The urethra carries stored urine out of the body. An enlarged prostate can press on the urethra. This can make it harder to pass urine. The buildup of urine in the bladder can cause infection. Back pressure and infection may progress to bladder damage and kidney (renal) failure. What are the causes? This condition is part of the normal aging process. However, not all men develop problems from this condition. If the prostate enlarges away from the urethra, urine flow will not be blocked. If it enlarges toward the urethra and compresses it, there will be problems passing urine. What increases the risk? This condition is more likely to develop in men older than 50 years. What are the signs or symptoms? Symptoms of this condition include: Getting up often during the night to urinate. Needing to urinate frequently during the day. Difficulty starting urine flow. Decrease in size and strength of your urine stream. Leaking (dribbling) after urinating. Inability to pass urine. This needs immediate treatment. Inability to completely empty your bladder. Pain when you pass urine. This is more common if there is also an infection. Urinary tract infection (UTI). How is this diagnosed? This condition is diagnosed based on your medical history, a physical exam, and your symptoms. Tests will also be done, such as: A post-void bladder scan. This measures any amount of urine that may remain in your bladder after you finish urinating. A digital rectal exam. In a rectal exam, your health care provider checks your prostate by putting a lubricated, gloved finger into your rectum to feel the back of your prostate gland. This exam detects the size of your gland and any abnormal lumps or growths. An exam of your urine (urinalysis). A prostate specific antigen (PSA) screening. This is a blood test used to screen for prostate cancer. An ultrasound. This test uses sound waves to electronically produce a picture of your prostate gland. Your health care provider may refer you to a specialist in kidney and prostate diseases (urologist). How is this treated? Once symptoms begin, your health care provider will monitor your condition (active surveillance or watchful waiting). Treatment for this condition will depend on the severity of your condition. Treatment may include: Observation and yearly exams. This may be the only treatment needed if your condition and symptoms are mild. Medicines to relieve your symptoms, including: ?Medicines to shrink the prostate. ?Medicines to relax the muscle of the prostate. Surgery in severe cases. Surgery may include: ?Prostatectomy. In this procedure, the prostate tissue is removed completely through an open incision or with a laparoscope or robotics. ?Transurethral resection of the prostate (TURP). In this procedure, a tool is inserted through the opening at the tip of the penis (urethra). It is used to cut away tissue of the inner core of the prostate. The pieces are removed through the same opening of the penis. This removes the blockage. ?Transurethral incision (TUIP). In this procedure, small cuts are made in the prostate. This lessens the prostate's pressure on the urethra. ?Transurethral microwave thermotherapy (TUMT). This procedure uses microwaves to create heat. The heat destroys and removes a small amount of prostate tissue. ?Transurethral needle ablation (TUNA). This procedure uses radio frequencies to destroy and remove a small amount of prostate tissue. ?Interstitial laser coagulation (ILC). This procedure uses a laser to destroy and remove a small amount of prostate tissue. ?Transurethral electrovaporization (TUVP). This procedure uses electrodes to destroy and remove a small amount of prostate tissue. ?Prostatic urethral lift. This procedure inserts an implant to push the lobes of the prostate away from the urethra. Follow these instructions at home: Take [id number] and prescription medicines only as told by your health care provider. Monitor your symptoms for any changes. Contact your health care provider with any changes. Avoid drinking large amounts of liquid before going to bed or out in public. Avoid or reduce how much caffeine or alcohol you drink. Give yourself time when you urinate. Keep all follow-up visits. This is important. Contact a health care provider if: You have unexplained back pain. Your symptoms do not get better with treatment. You develop side effects from the medicine you are taking. Your urine becomes very dark or has a bad smell. Your lower abdomen becomes distended and you have trouble passing urine. Get help right away if: You have a fever or chills. You suddenly cannot urinate. You feel light-headed or very dizzy, or you faint. There are large amounts of blood or clots in your urine. Your urinary problems become hard to manage. You develop moderate to severe low back or flank pain. The flank is the side of your body between the ribs and the hip. These symptoms may be an emergency. Get help right away. Call 911. Do not wait to see if the symptoms will go away. Do not drive yourself to the hospital. Summary Benign prostatic hyperplasia (BPH) is an enlarged prostate that is caused by the normal aging process. It is not caused by cancer. An enlarged prostate can press on the urethra. This can make it hard to pass urine. This condition is more likely to develop in men older than 50 years. Get help right away if you suddenly cannot urinate. This information is not intended to replace advice given to you by your health care provider. Make sure you discuss any questions you have with your health care provider. Document Revised: 02/19/2022 Document Reviewed: 02/19/2022 [employer] Patient Education 2022 [place]. Follow Up Care 02/13/2023 11:39:29 With:MIKE VENTURA, Oni Sewell, URL Address: [facility] [address] [place] [id number]- [phone] When: Unknown Comments:schedule cysto and renal US1 yr w/ PSA [facility] 11-28-2022 Note Cardiovascular Medic in[facility] SUBJECTIVE Chief Complaint Patient presents with Hyperlipidemia Shortness of Breath Chiki Juarez is a 77 y.o. male here for follow-up on his pacemaker which was placed for complete heart block. HPI Last HPI per Dr. Easton: Chiki is seen in follow-up. He is a 77-year-old man with prior history of COPD and is currently followed at [facility]. He takes multiple inhalers. In June 2020 he was admitted with COVID-19 infection and had a cerebrovascular accident with resultant difficulty speaking. At that time he was also found to have complete heart block and underwent dual-chamber pacemaker implantation. He does have lower extremity edema and worsening shortness of breath. He recently was seen at [facility] pulmonary and was recommended to follow-up with cardiology as a potential etiology of his shortness of breath. He also had COVID again in 09/2020. In January 2022 he was evaluated in our office and was instructed to increase his Lasix to twice daily for 3 days and then back to once daily. He reports that his lower extremity swelling has improved a little bit with this maneuver. Of note that his BMP was normal. I saw him on 02/10/2022. I checked an echocardiogram due to his shortness of breath. At last visit of 04/07/2022 I checked a stress test to investigate his shortness of breath on exertion and increased his furosemide to 40 mg daily. Today he denies chest pain. He has shortness of breath on exertion, NYHA class II-III. His lower extremity is about the same and appears that it has been chronic. He is using compression stockings. -------- 11/28/2022 He has been feeling well overall since last seen. He has CANO which is unchanged from his last visit. LE swelling is stable. He denies any CP, orthopnea, PND, palpitations, dizziness/LH, syncope. Patient Active Problem List Diagnosis Complete AV block (CMS/HCC) History of cerebrovascular accident Cardiac pacemaker in situ Mixed hyperglyceridemia Past Medical History: Diagnosis Date Abnormal ECG Hyperlipidemia Stroke (CMS/HCC) Family History Problem Relation Name Age of Onset Stroke Father Social History Tobacco Use Smoking status: Former Types: Cigarettes Substance Use Topics Alcohol use: Never No Known Allergies ROS Cardiovascular: Positive for dyspnea on exertion. Respiratory: Positive for shortness of breath. Hematologic/Lymphatic: Bruises/bleeds easily. Neurological: Positive for headaches and light-headedness. All other systems reviewed and are negative. OBJECTIVE Visit Vitals BP 118/66 (BP Location: Right arm, Patient Position: Sitting) Pulse 84 Ht 1.626 m (5' 4 ) Wt 98.4 kg (217 lb) SpO2 95% BMI 37.25 kg/m??? Smoking Status Former BSA 2.11 m??? Medications: Current Outpatient Medications: albuterol 90 mcg/actuation inhaler, ProAir HFA 90 mcg/actuation aerosol inhaler Inhale 2 puffs every 4 hours by inhalation route., Disp: , Rfl: aspirin 81 mg chewable tablet, in the morning., Disp: , Rfl: budesonide (Pulmicort) 0.5 mg/2 mL nebulizer solution, budesonide 0.5 mg/2 mL suspension for nebulization, Disp: , Rfl: cholecalciferol (Vitamin D-3) 25 MCG (1000 UT) tablet, Take 1,000 Units by mouth in the morning., Disp: , Rfl: furosemide (Lasix) 40 mg tablet, Take 1 tablet (40 mg) by mouth in the morning., Disp: 90 tablet, Rfl: 3 levothyroxine (Synthroid, Levoxyl) 100 mcg tablet, Synthroid 100 mcg tablet Take 1 tablet every day by oral route., Disp: , Rfl: potassium chloride ER (Micro-K) 10 mEq ER capsule, potassium chloride ER 10 mEq capsule,extended release TAKE 1 TABLET BY MOUTH DAILY WITH FUROSEMIDE, Disp: , Rfl: salmeterol (Serevent Diskus) 50 mcg/dose diskus inhaler, Serevent Diskus 50 mcg/dose powder for inhalation, Disp: , Rfl: tiotropium (Spiriva with HandiHaler) 18 mcg inhalation capsule, Spiriva with HandiHaler 18 mcg and inhalation capsules, Disp: , Rfl: metoprolol succinate XL (Toprol-XL) 25 mg 24 hr tablet, Take 1 tablet (25 mg) by mouth at bedtime. Do not crush or chew., Disp: 90 tablet, Rfl: 3 Physical Exam Constitutional: Appearance: Normal appearance. He is obese. HENT: Head: Normocephalic and atraumatic. Right Ear: External ear normal. Left Ear: External ear normal. Eyes: Extraocular Movements: Extraocular movements intact. Pupils: Pupils are equal, round, and reactive to light. Neck: Vascular: No carotid bruit. Cardiovascular: Rate and Rhythm: Normal rate and regular rhythm. Pulses: Normal pulses. Heart sounds: Normal heart sounds. Pulmonary: Effort: Pulmonary effort is normal. Breath sounds: Normal breath sounds. Abdominal: General: Bowel sounds are normal. Palpations: Abdomen is soft. Musculoskeletal: General: Normal range of motion. Cervical back: Neck supple. Right lower leg: Edema present. Left low (more content not included)... [facility] 11-28-2022 Note Patient here for 6 m o follow up hyperlipidemia, CANO, and complete AV block. Denies chest pain. SOB is no more than usual. Had labs in Jul 2022. Review of Systems Cardiovascular: Positive for dyspnea on exertion. Respiratory: Positive for shortness of breath. Hematologic/Lymphatic: Bruises/bleeds easily. Neurological: Positive for headaches and light-headedness. All other systems reviewed and are negative. [facility] 08-05-2022 Miscellaneous Notes Informed pt of Dr Draper's message. Pt verbalized understanding and denies further needs at this time. Lynsey Diaz RN ----- Message from Tyler Draper MD sent at 08/04/2022 12:29 PM EST ----- Please inform the patient that his PSA is stable at 0.26. We will continue as planned. 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 Draper because there is nothing until after the first of the year. Patient came in today thought his appt was today, he is olamide with Tyler there are no openings for awhile please advise documented in this encounter [facility] 01-16-2022 History of Present illness Narrative HEMATOLOGIC ONCOLOGY FOLLOW UP TELEPHONE ENCOUNTER Elements in this clinic note that are critical to medical decision making have been carefully reviewed and included from my prior clinic note dated: September 26, 2021 January 16, 2022 PCP and other physicians involved in care: Will Sherwood (PCP), Issa Sousa DIAGNOSIS: Multiple myeloma ONCOLOGIC HISTORY AND TREATMENT DETAILS: Diagnosed with diffuse large B-cell lymphoma in 2008 (based on cervical node FNA) at the age of 73. Bone marrow biopsy negative for involvement. Cytogenetics normal male 46 XY [20]. And treated with four cycles of R-CHOP and radiation. PET scan with a complete metabolic response. January 2019 PSA 10.9 March 16, 2019 random TRUS prostate biopsies with prostate adenocarcinoma, [place] 4+3, 3 cores involved out of 9, cribriform pattern present. Bone scan with a T5 compression fracture. No evidence of other lesions on bone scan or CT abdomen. April 01, 2019 bone biopsy of T5 compression fracture negative for malignancy April 25 June 28, 2019 treated with EBRT to prostate and pelvis (Dr. Sousa); 79.2 Horan in 44 fractions; PSA yina 0.14 in December 20202020, he had multiple infections including COVID-19 x2 and pneumonia, following pulmonology team at [facility]. He has a family history significant for cystic fibrosis and is being worked up for that. There is a concern for underlying bronchiectasis. May 15, 2021 CT chest done for shortness of breath negative for pulmonary embolism; small lytic lesions noted in bilateral ribs unchanged since July 2019; diffuse osteopenia with chronic T5 compression deformity; one new and several healed bilateral rib fractures August 2021 serum immunoelectrophoresis showed an M spike of 0.1 g/dL. Given his lytic lesions, anemia and M spike, he was referred to hematology for paraproteinemia evaluation September 2021 serum immunoelectrophoresis showed an M spike of 0.1 g/dL, stable. Immunofixation showed restriction IgG lambda lanes. Hemoglobin 11.3 g/dL, stable since 2018. Creatinine 1.3, stable. Calcium 8.7 and albumin 4.1. Bone survey negative for lytic lesions December 2021, PSA 0.3, IgG lambda M protein 0.08 g/dL and hemoglobin 11.7 g/dL (stable) INTERVAL HISTORY: I spoke with Chiki regarding his lab results. He reports no new symptoms. He continues to have chronic shortness of breath secondary to his underlying lung issues. Fatigue is stable. ROS is negative except that mentioned in HPI PAST MEDICAL SURGICAL FAMILY AND SOCIAL HISTORY: He has a history of Hypothyroidism Prostate Cancer, localized, [place] 7, treated with EBRT (Dr. Sousa) in 2018 Chronic obstructive lung disease, on home oxygen Cerebrovascular accident, 2019, residual dysarthria COVID-19 in 2019, 2 episodes, on home oxygen Lymphoma, large B cell treated with R-CHOP x 4 and radiation in 2007 with PET CR ?Bronchiectasis, follows pulmonology at [facility] Possible cystic fibrosis, follows pulmonology at [facility], genetic testing pending Previous surgeries include a pacemaker in 2019. No family history of hematologic or oncologic issues but significant for cystic fibrosis in brother and nephew; granddaughter is a carrier of cystic fibrosis. Patient lives in [place], [place] with his , Nicolasa. He has 4 children. He has a [id number] smoking history and quit in 1986. 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 MEDICATIONS AND ALLERGIES: Reviewed PHYSICAL EXAM NA LABORATORY, IMAGING AND PATHOLOGY December 2021 M spike 0.08 g/dL, IgG lambda, ratio 1.6 Bone Imagin05-15-21 CT scans with lytic lesions in the ribs unchanged since 2019 04-07 bone survey negative Bone Marrow Biopsy: NA ASSESSMENT AND RECOMMENDATIONS 76 male with lytic lesions, macrocytic anemia and MGUS M spike from December 2021 measures 0.08 g/dL, that is stable. His macrocytic anemia dates back to at least 2014 and is likely as a result of previous treatments for lymphoma and prostate cancer. The lytic lesions are limited to bilateral ribs and stable since 2019 per scan reports. The T5 compression deformity is chronic and suggests an underlying diagnosis of osteoporosis. Given his significant pulmonary issues, recurrent pneumonias and bouts of coughing, the rib lesions may be traumatic in nature. The CT scans not report of any lytic lesions outside the ribs. Bone survey was unremarkable. Serum calcium and creatinine are stable. Repeat testing in 6 months. With a history of previous chemotherapy and radiation, the macrocytic anemia could be as a result of myelodysplastic syndrome. Diagnosis is typically established by bone marrow biopsy and cytogenetics. Even if this were the case, the treatment would still remain monitoring CBC every 3 to 6 months. Thus, a bone marrow biopsy would not telephone exchange operator and it is okay to hold off for now. PSA stable at 0.30. He will follow up with Dr. Sousa for his history of prostate cancer. Hosea Herrera MD I spent a total of 10 minutes on the date of the service which included preparing to see the patient, completing clinical documentation, obtaining and/or reviewing separately obtained history, counseling and educating the patient/family/caregiver, ordering medications, tests, or procedures, independently interpreting results (not separately reported) and communicating results to the patient/family/caregiver. CC: Will Sherwood documented in this encounter [facility] 01-09-2022 History of Present illness Narrative HEMATOLOGIC ONCOLOGY FOLLOW UP Elements in this clinic note that are critical to medical decision making have been carefully reviewed and included from my prior clinic note dated: September 23, 2021 September 26, 2021 PCP and other physicians involved in care: Will Sherwood (PCP), Issa Sousa DIAGNOSIS: Multiple myeloma ONCOLOGIC HISTORY AND TREATMENT DETAILS: Diagnosed with diffuse large B-cell lymphoma in 2008 (based on cervical node FNA) at the age of 73. Bone marrow biopsy negative for involvement. Cytogenetics normal male 46 XY [20]. And treated with four cycles of R-CHOP and radiation. PET scan with a complete metabolic response. January 2019 PSA 10.9 March 16, 2019 random TRUS prostate biopsies with prostate adenocarcinoma, [place] 4+3, 3 cores involved out of 9, cribriform pattern present. Bone scan with a T5 compression fracture. No evidence of other lesions on bone scan or CT abdomen. April 01, 2019 bone biopsy of T5 compression fracture negative for malignancy April 25 June 28, 2019 treated with EBRT to prostate and pelvis (Dr. Sousa); 79.2 Horan in 44 fractions; PSA yina 0.14 in December 20202020, he had multiple infections including COVID-19 x2 and pneumonia, following pulmonology team at [facility]. He has a family history significant for cystic fibrosis and is being worked up for that. There is a concern for underlying bronchiectasis. May 15, 2021 CT chest done for shortness of breath negative for pulmonary embolism; small lytic lesions noted in bilateral ribs unchanged since July 2019; diffuse osteopenia with chronic T5 compression deformity; one new and several healed bilateral rib fractures August 2021 serum immunoelectrophoresis showed an M spike of 0.1 g/dL. Given his lytic lesions, anemia and M spike, he was referred to hematology for paraproteinemia evaluation September 2021 serum immunoelectrophoresis showed an M spike of 0.1 g/dL, stable. Immunofixation showed restriction IgG lambda lanes. Hemoglobin 11.3 g/dL, stable since 2018. Creatinine 1.3, stable. Calcium 8.7 and albumin 4.1. Bone survey negative for lytic lesions December 2021, PSA 0.3, rest labs in process INTERVAL HISTORY: Since last visit, Chiki reports no new symptoms. He continues to have chronic shortness of breath secondary to his underlying lung issues. Fatigue is stable. ROS is negative except that mentioned in HPI PAST MEDICAL SURGICAL FAMILY AND SOCIAL HISTORY: He has a history of Hypothyroidism Prostate Cancer, localized, [place] 7, treated with EBRT (Dr. Sousa) in 2018 Chronic obstructive lung disease, on home oxygen Cerebrovascular accident, 2019, residual dysarthria COVID-19 in 2019, 2 episodes, on home oxygen Lymphoma, large B cell treated with R-CHOP x 4 and radiation in 2007 with PET CR ?Bronchiectasis, follows pulmonology at [facility] Possible cystic fibrosis, follows pulmonology at [facility], genetic testing pending Previous surgeries include a pacemaker in 2020. No family history of hematologic or oncologic issues but significant for cystic fibrosis in brother and nephew; granddaughter is a carrier of cystic fibrosis. Patient lives in [place], [place] with his , Nicolasa. He has 4 children. He has a [id number] smoking history and quit in 1986. 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 MEDICATIONS AND ALLERGIES: Reviewed PHYSICAL EXAM BP 95/68 Pulse 93 Temp 36.6 C (97.8 F) (Temporal) Resp 18 Ht 172.7 cm (5' 7.99 ) Wt 100.6 kg (221 lb 12.8 oz) SpO2 93% BMI 33.73 kg/m PS - 0, Head atraumatic, no pallor, icterus or lymphadenopathy, lungs clear to auscultation, heart sounds regular, abdomen soft without distension or organomegaly, neuro grossly non-focal, skin without rash, extremities without swelling LABORATORY, IMAGING AND PATHOLOGY M spike 0.1 g/dL, IgG lambda, ratio 1.64 Bone Imagin05-15-21 CT scans with lytic lesions in the ribs unchanged since 2019 2 04-07 bone survey report pending Bone Marrow Biopsy: NA ASSESSMENT AND RECOMMENDATIONS 76 male with lytic lesions, macrocytic anemia and MGUS M spike from August and September 2021 measures 0.1 g/dL that is stable. His macrocytic anemia dates back to at least 2014 and is likely as a result of previous treatments for lymphoma and prostate cancer. The lytic lesions are limited to bilateral ribs and stable since 2019 for scan reports. The T5 compression deformity is chronic and suggests an underlying diagnosis of osteoporosis. Given his significant pulmonary issues, recurrent pneumonias and bouts of coughing, the rib lesions may be traumatic in nature. The CT scans not report of any lytic lesions outside the ribs. Bone survey was unremarkable. Serum calcium and creatinine are stable. Labs from today are in process and if M protein is stable, will bring him back in 6-12 months for a recheck. With a history of previous chemotherapy and radiation, the macrocytic anemia could be as a result of myelodysplastic syndrome, Diagnosis is typically established by bone marrow biopsy and cytogenetics. Even if this were the case, the treatment would still remain monitoring CBC every 3 to 6 months. Thus, a bone marrow biopsy would not telephone exchange operator and it is okay to hold off for now. PSA stable at 0.30. He will follow up with Dr. Sousa for his history of prostate cancer. Hosea Herrera MD I spent a total of 20 minutes on the date of the service which included preparing to see the patient, [id number] patient care, completing clinical documentation, obtaining and/or reviewing separately obtained history, performing a medically appropriate examination, counseling and educating the patient/family/caregiver, ordering medications, tests, or procedures, independently interpreting results (not separately reported) and communicating results to the patient/family/caregiver. CC: Will Sherwood documented in this encounter [facility] 11-19-2021 Hospital Discharge instructions Patient Education 11/19/2021 10:56:38 Prostate Cancer Prostate Cancer The prostate is a walnut-sized gland that is involved in the production of semen. It is located below a man's bladder, in front of the rectum. Prostate cancer is the abnormal growth of cells in the prostate gland. What are the causes? The exact cause of this condition is not known. What increases the risk? This condition is more likely to develop in men who: Are older than age 65. Are -[place]. Are obese. Have a family history of prostate cancer. Have a family history of breast cancer. What are the signs or symptoms? Symptoms of this condition include: A need to urinate often. Weak or interrupted flow of urine. Trouble starting or stopping urination. Inability to urinate. Pain or burning during urination. Painful ejaculation. Blood in urine or semen. Persistent pain or discomfort in the lower back, lower abdomen, hips, or upper thighs. Trouble getting an erection. Trouble emptying the bladder all the way. How is this diagnosed? This condition can be diagnosed with: A digital rectal exam. For this exam, a health care provider inserts a gloved finger into the rectum to feel the prostate gland. A blood test called a prostate-specific antigen (PSA) test. An imaging test called transrectal ultrasonography. A procedure in which a sample of tissue is taken from the prostate and examined under a microscope (prostate biopsy). Once the condition is diagnosed, tests will be done to determine how far the cancer has spread. This is called staging the cancer. Staging may involve imaging tests, such as: A bone scan. A CT scan. A PET scan. An MRI. The stages of prostate cancer are as follows: Stage I. At this stage, the cancer is found in the prostate only. The cancer is not visible on imaging tests and it is usually found by accident, such as during a prostate surgery. Stage II. At this stage, the cancer is more advanced than it is in stage I, but the cancer has not spread outside the prostate. Stage III. At this stage, the cancer has spread beyond the outer layer of the prostate to nearby tissues. The cancer may be found in the seminal vesicles, which are near the bladder and the prostate. Stage IV. At this stage, the cancer has spread other parts of the body, such as the lymph nodes, bones, bladder, rectum, liver, or lungs. How is this treated? Treatment for this condition depends on several factors, including the stage of the cancer, your age, personal preferences, and your overall health. Talk with your health care provider about treatment options that are recommended for you. Common treatments include: Observation for early stage prostate cancer (active surveillance). This involves having exams, blood tests, and in some cases, more biopsies. For some men, this is the only treatment needed. Surgery. Types of surgeries include: ?Open surgery. In this surgery, a larger incision is made to remove the prostate. ?A laparoscopic prostatectomy. This is a surgery to remove the prostate and lymph nodes through several, small incisions. It is often referred to as a minimally invasive surgery. ?A robotic prostatectomy. This is a surgery to remove the prostate and lymph nodes with the help of a robotic arm that is controlled by a computer. ?Orchiectomy. This is a surgery to remove the testicles. ?Cryosurgery. This is a surgery to freeze and destroy cancer cells. Radiation treatment. Types of radiation treatment include: ?External beam radiation. This type aims beams of radiation from outside the body at the prostate to destroy cancerous cells. ?Brachytherapy. This type uses radioactive needles, seeds, wires, or tubes that are implanted into the prostate gland. Like external beam radiation, brachytherapy destroys cancerous cells. An advantage is that this type of radiation limits the damage to surrounding tissue and has fewer side effects. High-intensity, focused ultrasonography. This treatment destroys cancer cells by delivering high-energy ultrasound waves to the cancerous cells. Chemotherapy medicines. This treatment kills cancer cells or stops them from multiplying. Hormone treatment. This treatment involves taking medicines that act on one of the male hormones (testosterone): ?By stopping your body from producing testosterone. ?By blocking testosterone from reaching cancer cells. Follow these instructions at home: Take [id number] and prescription medicines only as told by your health care provider. Maintain a healthy diet. Get plenty of sleep. Consider joining a support group for men who have prostate cancer. Meeting with a support group may help you learn to cope with the stress of having cancer. Keep all follow-up visits as told by your health care provider. This is important. If you have to go to the hospital, notify your cancer specialist (oncologist). Treatment for prostate cancer may affect sexual function. Continue to have intimate moments with your partner. This may include touching, holding, hugging, and caressing. Contact a health care provider if: You have trouble urinating. You have blood in your urine. You have pain in your hips, back, or chest. Get help right away if: You have weakness or numbness in your legs. You cannot control urination or your bowel movements (incontinence). You have trouble breathing. You have sudden chest pain. You have chills or a fever. Summary The prostate is a walnut-sized gland that is involved in the production of semen. It is located below a man's bladder, in front of the rectum. Prostate cancer is the abnormal growth of cells in the prostate gland. Treatment for this condition depends on several factors, including the stage of the cancer, your age, personal preferences, and your overall health. Talk with your health care provider about treatment options that are recommended for you. Consider joining a support group for men who have prostate cancer. Meeting with a support group may help you learn to cope with the stress of having cancer. This information is not intended to replace advice given to you by your health care provider. Make sure you discuss any questions you have with your health care provider. Document Released: 08/03/2006 Document Revised: 07/16/2018 Document Reviewed: 04/13/2017 [employer] Patient Education 2020 [employer]. Follow Up Care 10/30/2020 10:17:46 With:Young Manriquez MD, Romeo Valles, URO Address: [facility] [address] , [place] [address]- [phone] When: Unknown [facility] Evaluation + Plan note Future Appointments Appointment Date:11/25/2022 10:15:00 AM Scheduled Provider:Romeo Vidal Jr., MD Location:[facility] Appointment Type:URO Office Visit [facility] Evaluation + Plan note Future Appointments Appointment Date:01/22/2024 11:00:00 AM Scheduled Provider: Location:[facility] Appointment Type:FM Medicare Wellness Subsequent Diagnostic Tests PendingT3 Free 01/26/23 [facility] Evaluation + Plan note Future Appointments Appointment Date:03/24/2023 10:00:00 AM Scheduled Provider: Location:[facility] Appointment Type:Urology CALL PAT FT Appointment Date:03/31/2023 11:15:00 AM Scheduled Provider: Location:[facility] Appointment Type:Urology FT Appointment Date:01/22/2024 11:00:00 AM Scheduled Provider: Location:[facility] Appointment Type:FM Medicare Wellness Subsequent Appointment Date:03/14/2024 11:15:00 AM Scheduled Provider:Oni MCKEON MD Location:[facility] Appointment Type:URO Office Visit Diagnostic Tests PendingPSA Total 03/09/23 [facility] Evaluation + Plan note Future Appointments Appointment Date:01/22/2024 11:00:00 AM Scheduled Provider: Location:[facility] Appointment Type:FM Medicare Wellness Subsequent Appointment Date:03/14/2024 11:15:00 AM Scheduled Provider:Oni MCKEON MD Location:[facility] Appointment Type:URO Office Visit [facility] Evaluation note Diagnosis MGUS (monoclonal gammopathy of unknown significance)- Primary Monoclonal paraproteinemia documented in this encounter [facility] note* Diagnosis B12 deficiency- Primary Other B-complex deficiencies Diffuse large B-cell lymphoma, unspecified body region (HCC) documented in this encounter [facility] note* Diagnosis MGUS (monoclonal gammopathy of unknown significance)- Primary Monoclonal paraproteinemia Macrocytic anemia Unspecified deficiency anemia [facility]ative No data available for this section [facility] Discharge instructions No data available for this section [facility] No data available for this section [facility] Summary Purpose Family History No Family History Records FoundNo Family History Records FoundNo Family History Records FoundNo Family History Records FoundNo Family History Records FoundNo Family History Records Found Advance Directives No Advanced Directives Records FoundNo Advanced Directives Records FoundNo Advanced Directives Records FoundNo Advanced Directives Records FoundNo Advanced Directives Records FoundNo Advanced Directives Records Found Hospital Course Note MR#: [id number] [facility] Pt. Name: Chiki Juarez Admitted: 06/26/2020 Discharged: 06/30/2020 Date of : 1945 Physician: Davie Hammond MD DISCHARGE SUMMARY PRIMARY DIAGNOSES: 1. COVID-19 infection. 2. Stroke-like symptoms including dysarthria, expressive aphasic. Underwent CTA of neck and head. No focal stenosis or occlusion noted. No aneurysm or vascular malformation. No stenosis in the carotid or vertebral circulation noted. Stroke Team evaluated the patient. They recommend to continue aspirin and Plavix. The patient could not get MRI because of the COVID-19 status. 3. Complete heart block, status post pacemaker in place by the Cardiology Team. From their standpoint, the patient is okay to discharge. CONSULTATIONS: 1. Cardiology. 2. Infectious Disease. 3. Stroke Team. HOSPITAL COURSE: The patient is a 75-year-old male with significant past medical history of asthma, lymphoma, and hypothyroidism, who transferred to [facility] for evaluation of poss (more content not included)... Additional Source Comments (unrecognized sect ion and content) No Status Records FoundNo Status Records FoundNo Status Records FoundNo Status Records FoundNo Status Records FoundNo Status Records Found INFORMATION SOURCE (unrecogn ized section and content) DATE CREATED AUTHOR 07/16/2020 [facility] DATE CREATED AUTHOR AUTHOR'S ORGANIZ ATION 04/26/2022 [facility] DATE CREATED AUTHOR AUTHOR'S ORGANIZ ATION 07/19/2023 [facility] dical [facility] DATE CREATED AUTHOR AUTHOR'S ORGANIZ ATION 07/30/2023 [facility] DATE CREATED AUTHOR AUTHOR'S ORGANIZ ATION 08/01/2023 [facility] DATE CREATED AUTHOR AUTHOR'S ORGANIZ ATION 08/06/2023 [facility] Source Comments (unrecognize d section and content) In the event this informatio n is protected by the Federal Confidentiality of Alcohol and Drug Abuse Patient Records regulations: The Federal rules restrict any use of the information to criminally investigate or prosecute any alcohol or drug abuse patient.[facility] the event this information is protected by the Federal Confidentiality of Alcohol and Drug Abuse Patient Records regulations: The Federal rules restrict any use of the information to criminally investigate or prosecute any alcohol or drug abuse patient.[facility] the event this information is protected by the Federal Confidentiality of Alcohol and Drug Abuse Patient Records regulations: The Federal rules restrict any use of the information to criminally investigate or prosecute any alcohol or drug abuse patient.[facility] the event this information is protected by the [facility] Confidentiality of Alcohol and Drug Abuse Patient Records regulations: The Federal rules restrict any use of the information to criminally investigate or prosecute any alcohol or drug abuse patient.[facility] the event this information is protected by the Federal Confidentiality of Alcohol and Drug Abuse Patient Records regulations: The Federal rules restrict any use of the information to criminally investigate or prosecute any alcohol or drug abuse patient.[facility] Reason for Visit (unrecogniz ed section and content) Reason Comments Prostate Cancer Reason Comments Lab Orders Reason Comments Results Reason Comments Appointment Care Teams (unrecognized sec tion and content) Shoe Cleaner Relationship Specialty Start Date End Date Will Sherwood MD [address] [place] [id number] PCP - General 08/01/05 Shoe Cleaner Relationship Specialty Start Date End Date Will Sherwood MD [address] [place] [address] PCP - General 08/01/05 Shoe Cleaner Relationship Specialty Start Date End Date Will Sherwood MD [address] [place] [address] PCP - General 08/01/05 Shoe Cleaner Relationship Specialty Start Date End Date Will Sherwood MD [address] [place] [address] PCP - General 08/01/05 FOR RECORDS PERTAINING TO PATIENTS WHO ARE OR HAVE BEEN ENROLLED IN A CHEMICAL DEPENDENCY/SUBSTANCEABUSE PROGRAM, SOME INFORMATION MAY BE OMITTED. This clinical summary was aggregated from multiple sources. Caution should be exercised in using it in the provision of clinical care. This summary normalizes information from multiple sources, and as a consequence, information in this document may materially change the coding, format and clinical context of patient data. In addition, data may be omitted in some cases. CLINICAL DECISIONS SHOULD BE BASED ON THE PRIMARY CLINICAL RECORDS. [facility]. provides no warranty or guarantee of the accuracy or completeness of information in this document.
--- NOTE | 2023-08-06 11:45 | CA_ITS ---
Patient Name: CHIKI FOLEY MR#: [id number] : 1945 Exam Date: 08/06/2023 Ordering Doctor: DR DANIELLA TUCKER M.D. ECHOCARDIOGRAM REPORT PROCEDURE: CA ECHO DOPPLER COMPLETE INDICATIONS: CANO COMPARISON: None. DESCRIPTION: COMPLETE ECHOCARDIOGRAM Real-time transthoracic echocardiography with 2D, M-mode, spectral and color flow Doppler performed. QUALITY: Technical quality was limited. LEFT VENTRICLE: Normal chamber size. Mild concentric left ventricular hypertrophy. LV EF: Global left ventricular systolic function is difficult to assess due to rhythm but appears preserved; visually estimated ejection fraction is 50 to 55%. Unable to assess regional wall motion abnormalities; consider contrast study for better delineation of endocardial borders. DIASTOLIC: Grade I diastolic dysfunction. ATRIAL SEPTUM: Inadequately seen. LEFT ATRIUM: Mild dilatation. RIGHT ATRIUM: Mild dilatation. RIGHT VENTRICLE: Normal chamber size. Right ventricular systolic function appears reduced. A pacer wire is seen. TRICUSPID VALVE: Normal mobility and thickness. Trivial regurgitation. Mild pulmonary hypertension. RVSP 39mmHg MITRAL VALVE: Normal mobility and thickness. No evidence of mitral valve stenosis. Mild mitral annular calcification. No mitral regurgitation. AORTIC VALVE: Normal trileaflet appearance. Mildly calcified aortic valve. Normal leaflet mobility. No evidence of aortic valve stenosis. Trivial aortic regurgitation. AORTIC ROOT: Normal diameter and appearance. PULMONIC VALVE: Normal thickness and mobility. No stenosis. Mild regurgitation. PERICARDIUM: Anterior free space; trivial effusion versus fat pad. IVC: Collapses with inspirations. Normal size. CONCLUSION: 1. Global left ventricular systolic function is difficult to assess but appears preserved; visually estimated ejection fraction is 50 to 55% 2. The right ventricle appears normal in size with reduced systolic function 3. Mildly increased left ventricular wall thickness 4. Biatrial enlargement 5. Grade 1 diastolic dysfunction 6. Mildly elevated right ventricular systolic pressure; RVSP 39 mmHg 7. Mild pulmonic regurgitation 8. Anterior free space; trivial effusion versus fat pad Adult Echocardiography Procedure Report Left Ventricle LVEDD (3.7 - 5.6 cm): 4.67 cm LVESD (2.2 - 4.0 cm): 3.51 cm LVIVS thickness (0.6 - 1.2 cm): 1.10 cm LVPW thickness (0.5 - 1.0 cm): 1.12 cm e': 0.05 m/s E - e': 12.31 LVOT Max Gradient: 2.42 mm[Hg] LVOT Area (cm2): 0.78 m/s Peak Velocity (LVOT): 0.78 m/s Mean Velocity (LVOT): 0.50 m/s LVOT Diameter 2.31 cm Left Atrium Left Atrium Systolic Dimension: 2.83 cm Mitral Valve MV E to A Ratio: 0.65 Mitral Valve A-Wave Peak Velocity: 0.92 m/s Mitral Valve E-Wave Peak Velocity: 0.60 m/s Right Ventricle RV Internal Diastolic Dimension: 3.91 cm Aorta AO Root Diam: 3.62 cm Ascending Ao Diam: 3.37 cm Aortic Valve AoV Area (Peak Sherif): 2.27 cm2, 2.27 cm2 AoV Area (VTI): 2.22 cm2, 2.22 cm2 Peak Velocity(Antegrade Flow): 1.43 m/s Peak Gradient(Antegrade Flow): 8.18 mm[Hg] Mean Velocity(Antegrade Flow): 0.94 m/s Mean Gradient(Antegrade Flow): 4.08 mm[Hg] Velocity Time Integral: 27.77 cm Tricuspid Valve Peak Velocity (Regurgitant Flow): 2.93 m/s, 2.99 m/s, 2.99 m/s Pulmonic Valve Mean Gradient: 2.51 mm[Hg], 2.71 mm[Hg] Mean Velocity: 0.73 m/s, 0.80 m/s Peak Velocity: 1.05 m/s, 1.08 m/s Peak Gradient: 4.71 mm[Hg], 4.11 mm[Hg], 4.63 mm[Hg] Right Atrium Right Atrium Systolic Pressure: 62.26 ml, 62.26 ml Dictated by: Sapna Bull M.D. on 08/07/2023 at 13:22 Approved by: Sapna Bull M.D. on 08/07/2023 at 13:29
== END 2023-08-06 10:05 | disposition home or self-care (01) ==
LOC: CARD 10:04
PROVIDERS: PCP Family Medicine; Visit Provider Internal Medicine Interventional Cardiology
DX: R06.09 Other forms of dyspnea (principal)
CPT/HCPCS: 93306

== ENCOUNTER 2023-08-13 12:09 | Outpatient (OUT) | payer MEDICARE, SELFPAY ==
--- OUTSIDE RECORDS SUMMARY | 2023-08-13 12:14 | XMS_ITS | CCD ---
Author Name Unknown Address [address] [facility] [address] [place] [address] Organization [facility] Care Team Providers Care Server Developer Name Role Phone CHANCECRESCENCIO Referring Unavailable WILL SHERWOOD Primary Care Unavailable MYA BHAKTA Attending Unavailable MYA BHAKTA Admitting Unavailable [place] Procedure Practitioner Unavailab CONNOR Herrera Surgeon Unavailable MYA BHAKTA Surgeon Unavailable [place] Procedure Practitioner Unavailab WILL Jackson Primary Care Physician [phone] Will Sherwood MD Primary Care Provider [phone] JARETT, DR WILL Del Toro Attending Unavailable JARETT, DR WILL Del Toro Admitting Unavailable SHERWOOD, DR WILL Del Toro Consulting Unavailable JARETT, DR WILL Del Toro Primary Care Unavailable SHERWOOD, DR WILL Del Toro Attending Unavailable JARETT, DR WILL Del Toro Admitting Unavailable JARETT, DR WILL Del Toro Consulting Unavailable JARETT, DR WILL Del Toro Primary Care Unavailable HAY, DR MORRISON Consulting Unavailable JESERAY Consulting Unavailable JARETT, DR WILL Del Toro Primary Care Unavailable MISC, DR HERRERA Admitting Unavailable MISC, DR HERRERA Attending Unavailable MISC, DR HERRERA Admitting Unavailable MISC, DR HERRERA Attending Unavailable JARETT, DR WILL eDl Toro Primary Care Unavailable MISC, DR HERRERA Consulting Unavailable JENICRISTÓBAL Consulting Unavailable JENI, CRISTÓBAL Admitting Unavailable JENICRISTÓBAL Attending Unavailable JARETT, DR WILL Del Toro Primary Care Unavailable SHERWOOD, DR WILL Del Toro Attending Unavailable JARETT, DR WILL Del Toro Primary Care Unavailable SHERWOOD, DR WILL Del Toro Admitting Unavailable SHERWOOD, DR WILL Del Toro Consulting Unavailable REGGIE, [...] Care Provider Pito Patterson. Primary Care Physician BERT ACEVEDO Attending Unavailable ANASTASIA SINHA Attending Unavailable CONNOR CARRERA Referring Unavailable ANASTASIA SINHA Attending Unavailable CONNOR CARRERA Referring Unavailable DANIELLA EASTON Attending Unavailable PITO PATTERSON Primary Care Unavailable TYLER DRAPER Attending Unavailable PITO PATTERSON Primary Care Unavailable Pito Patterson Attending Unavailable Pito Patterson Attending Unavailable Corwin, Marlys Valles Attending Unavailable MCKEON, Oni R Attending Unavailable MCKEON, Oni R Attending Unavailable MCKEON, Noi R Attending Unavailable MCKEON, Oni R Attending [...] [SPIRONOLACTONE] Drug Allergy 09-18-2021 Other: See Comments [facility] Medications Current Medications Medication Drug Class(es) Dates [...] mL, NEB, q4hr, 300 mL, Refill(s) 3, [facility]/pharmacy #[id number], 162, cm, 10/28/22 15:18:00 EDT, Height/Length Dosing, 99.8, kg, 10/28/22 15:18:00 EDT, Weight Dosing Start Date: 12/17/22 Status: Ordered Start: 12-17-2022 albuterol 0.08 3% Inh Kasie 3 mL See Instructions, 150 mL, Refill(s) 0, INHALE 1 VIAL VIA NEBULIZER EVERY 6 HOURS, [facility], 162, cm, 10/28/22 15:18:00 EDT, Height/Length Dosing, [...] BID, # 120 mL, Refills(s) 11, Pharmacy: [facility]/pharmacy #[id number], 162, cm, 10/28/22 15:18:00 EDT, Height/Length [...] bedtime), # 30 cap(s), Refills(s) 0, Pharmacy: [facility]/pharmacy #[id number], 168, cm, 03/09/23 11:04:00 EDT, Height/Length Dosing, 103, kg, 03/09/23 11:04:00 EDT, Weight Dosing Start Date: 03/09/23 Status: Ordered Start: 01-22-2023 take 1 capsule by [facility] once daily at bedtime gabapentin 300 mg Cap 300 mg = 1 cap(s), Oral, Once a day (at bedtime), # 30 cap(s), Refills(s) 0, Pharmacy: [facility]/pharmacy #[id number], 162, cm, 01/22/23 13:19:00 EDT, Height/Length Dosing, 98.3, kg, 01/22/23 13:19:00 EDT, Weight Dosing Start Date: 01/22/23 Status: Ordered ipratropium bromide 0.042 mg/actuat metered dose nasal spray (3 sources) Anticholinergic Start: 03-13-2023 End: 03-07-2024 take 2 spray(s) nasal route twice daily, then take 2 spray(s) nasal route twice daily ipratropium Nasal 0.06% Ohlman 2 spray(s), Nasal, BID for 90 day(s), 45 mL, Refill(s) 3, PLACE 2 SPRAYS IN EACH NOSTRIL TWO TIMES DAILY., [facility]/pharmacy #[id number], 168, cm, 03/09/23 11:04:00 EDT, Height/Length Dosing, 103, kg, 03/09/23 11:04:00 EDT, Weight Dosing Start Date: 03/13/23 Stop Date: 03/07/24 Status: Ordered Start: 02-20-2023 take 1 dose nasal ro [place] twice daily, then take 2 spray(s) nasal route twice daily ipratropium Nasal 0.06% Ohlman 2 spray(s), Nasal, BID, 1 EA, Refill(s) 1, PLACE 2 SPRAYS IN EACH NOSTRIL TWO TIMES DAILY., [facility]/pharmacy #[id number], 162, cm, 01/22/23 13:19:00 EDT, Height/Length Dosing, 98.3, kg, 01/22/23 13:19:00 EDT, Weight Dosing Start Date: 02/20/23 Status: Ordered Start: 01-22-2023 take 1 dose nasal ro [place] twice daily, then take 2 spray(s) nasal route twice daily ipratropium Nasal 0.06% Ohlman 2 spray(s), Nasal, BID, 1 EA, Refill(s) 1, PLACE 2 SPRAYS IN EACH NOSTRIL TWO TIMES DAILY., [facility]/pharmacy #[id number], 162, cm, 01/22/23 13:19:00 EDT, Height/Length [...] as prescribed for COPD, [facility] ([facility] ), Supply, 162, cm, 01/22/23 [...] procedure, # 2 tab(s), Refills(s) 0, Pharmacy: [facility]/pharmacy #[id number], 168, cm, 03/09/23 11:04:00 EDT, Height/Length [...] h daily before breakfast. 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; Translations: [OTH GUYLINE OPERATOR CURRENT DRUG THERAPY] Onset: 05-28-2021 Episodic Other [...] Range Facility Consultation Noteon 08-05-20 Consultation Note [id number]#1.00TIFF [facility] Consultation Note [id number]#1.00TIFF [facility] Consultation Noteon 08-04-20 Consultation Note [id number]#1.00TIFF [facility] Physician Referralon 023 Physician Referral [id number]#1.00TIFF [facility] Ambulatory Visit Summaryon 1 10-04-2022 Ambulatory Visit [...] mg Tab) ipratropium nasal (ipratropium Nasal 0.06% Ohlman) levothyroxine (levothyroxine 100 mcg (0.1 mg) Tab) [...] EST With: Navarro VENTURA, Pito Davidson Where: [facility] [place] Invalid Interpretation Code [address] [place] [address]- \.br \ Thursday 11:15 AM EDT \.br\ With: MIKE VENTURA, Oni Sewell\.br\ Where: [facility] Auth for Release of Medical Recordson 08-03-2023 Auth for Release of Medical Records [id number]#1.00TIFF Normal [facility] Family Medicine Office/Clini c Noteon 08-03-2023 [...] not 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 Will see him in [...] 2 tab(s), Oral, Daily ipratropium Nasal 0.06% Ohlman, 2 spray(s), Nasal, BID, 3 refills levothyroxine [...] Alcohol 1 (more content not included)... Normal [facility] Comment on above: Result Comment: Bipin [...] numbers. This can be done either in [place] or metric measurements. Note that charts and online BMI calculators are available to help you find your BMI quickly and easily without having to do these calculations yourself. To calculate your BMI in [place] ([place] measurements: 1. Measure your weight in [...] for Disease Control and Prevention: www.cdc.gov ? Canadian Heart Association: www.heart.org ? National Heart, Lung, and Blood [place]: www.nhlbi.nih.gov Summary ? Body mass index (BMI) is a number that is calculated from a person's weight and height. ? BMI may help estimate how much of a person's weight is composed of fat. BMI can help identify those who may be at higher risk for certain medical problems. ? BMI can be measured using [place]z measurements or metric measurements. ? BMI charts are used to identify whether you are underweight, normal weight, overweight, or obese. This information is not intended to replace advice given to you by your health care provider. Make sure you discuss any questions you have with your health care provider. Document Revised: 04/25/2020 Document Reviewed: 03/02/2020 [employer] Patient Education ? 2022 [employer]. [facility] CNOVSPon 07-30-2023 CNOVSP Visit (SP) Office ([place]) ----- CHIKI JUAREZ ([id number]) 1945 M Date Time Provider Department 07/30/23 [...] (215 lb (more content not included)... Normal [facility] Office Visiton 07-28-2023 Follow-up visit [id number] Tremaine Juarez 1945 M Date Provider Department Center 07/28/2023 DANIELLA CARDONA [facility] Frannie [facility] Family History Problem Relation Age of Onset Stroke Father Family Status - Relation Status Age at Father Level of Service:51237 [place] OFFICE/OUTPATIENT ESTABLISHED MOD MDM 30-39 MIN Normal [facility] Basic metabolic 2000 panelon 07-23-2023 Anion gap [Moles/Vol] 10 mmol/L Normal 9-18 [facility] Comment on above: Order Comment: Speci men Type: BLOOD SPECIMEN Ordering Facility: [facility] Address: [address] [place] [address] Performed By: #### 2 4321-2 #### [facility] CLIA [id number] [address] [place] [address] Calcium [Mass/Vol] 8.4 mg/dL Low 8.5-10.2 [facility] Comment on above: Order Comment: Speci men Type: BLOOD SPECIMEN Ordering Facility: [facility] Address: [address] [place] [address] Performed By: #### 2 4321-2 #### [facility] CLIA [id number] [address] [place] [address] Chloride [Moles/Vol] 103 mmol/L Normal 97-105 [facility] Comment on above: Order Comment: Speci men Type: BLOOD SPECIMEN Ordering Facility: [facility] Address: [address] [place] [address] Performed By: #### 2 4321-2 #### [facility] CLIA [id number] [address] [place] [address]302 CO2 [Moles/Vol] 24 mmol/L Normal 22-30 [facility] Comment on above: Order Comment: Speci men Type: BLOOD SPECIMEN Ordering Facility: [facility] Address: [address] [place] [address] Performed By: #### 2 4321-2 #### [facility] CLIA [id number] [address] [place] [address] Creatinine [Mass/Vol] 1.33 mg/dL High 0.73-1.22 [facility] Comment on above: Order Comment: Speci men Type: BLOOD SPECIMEN Ordering Facility: [facility] Address: [address] [place] [address] Performed By: #### 2 4321-2 #### [facility] CLIA [id number] [address] [place] [address] Creatinine and Glomerular filtration rate.predicted panel (S/P/Bld) 55 mL/min/1.73m??? Low >=60 [facility] Comment on above: Order Comment: Speci men Type: BLOOD SPECIMEN Ordering Facility: [facility] Address: [facility]note 3] [place] [address] Result Comment: Ary mated Glomerular Filtration Rate [...] GFR. Performed By: #### 2 4321-2 #### [facility] CLIA [id number] [address] [place] [address]07 Glucose [Mass/Vol] 156 mg/dL High 74-99 [facility] Comment on above: Order Comment: Liliya hadley Type: BLOOD SPECIMEN Ordering Facility: [facility] Address: [address] [place] [address] Result Comment: The Canadian Diabetes Association (ADA) provides guidance for cutoff [...] Standards of Medical Care in Diabetes 2016, Canadian Diabetes Association. Diabetes Care. 2016.39(Suppl 1). Performed By: #### 2 4321-2 #### [facility] CLIA [id number] [address] [place] [address] Potassium [Moles/Vol] 3.7 mmol/L Normal 3.7-5.1 [facility] Comment on above: Order Comment: Liliya hadley Type: BLOOD SPECIMEN Ordering Facility: [facility] Address: [address] [place] [address] Performed By: #### 2 4321-2 #### [facility] CLIA [id number] [address] [place] [address]37 Sodium [Moles/Vol] 137 mmol/L Normal 136-144 [facility] Comment on above: Order Comment: Speci men Type: BLOOD SPECIMEN Ordering Facility: [facility] Address: [address] [place] [address] Performed By: #### 2 4321-2 #### [facility] CLIA [id number] [address] [place] [address] Urea nitrogen [Mass/Vol] 17 mg/dL Normal 9-24 [facility] Comment on above: Order Comment: Speci men Type: BLOOD SPECIMEN Ordering Facility: [facility] Address: [address] [place] [address] Performed By: #### 2 4321-2 #### [facility] CLIA [id number] [address] [place] [address] CBC W Auto Differential pane l (Bld)on 07-23-2023 Anisocytosis Ql (Bld) Present Normal [facility] Comment on above: Order Comment: Speci men Type: BLOOD SPECIMEN Ordering Facility: [facility] Address: [address] [place] [address] Performed By: #### 5 7021-8 #### [facility] CLIA [id number] [address] [place] [address] LAB CLIA [id number] [address] [place] [address] [place] Basophils (Bld) [#/Vol] 0.00 10*3/uL Normal <0.11 [facility] Comment on above: Order Comment: Speci men Type: BLOOD SPECIMEN Ordering Facility: [facility] Address: [address] [place] [address] Performed By: #### 5 7021-8 #### [facility] CLIA [id number] [address] [place] [address] LAB CLIA [id number] [address] [facility] [place] [address] [place] Basophils/100 WBC (Bld) 0.0 % Normal [facility] Comment on above: Order Comment: Speci men Type: BLOOD SPECIMEN Ordering Facility: [facility] Address: [address] [place] [address] Performed By: #### 5 7021-8 #### ABDIRAHMAN [facility] CLIA [id number] [address] [place] [address] LAB CLIA [id number] [address] [place] [address] [place] Differential cell count method Nom (Bld) Manual Normal [facility] Comment on above: Order Comment: Speci men Type: BLOOD SPECIMEN Ordering Facility: [facility] Address: [address] [place] [address] Performed By: #### 5 7021-8 #### [facility] CLIA [id number] [address] [place] [address] LAB CLIA [id number] [address] [place] [address] [place] Eosinophils (Bld) [#/Vol] 0.05 10*3/uL Normal <0.46 [facility] Comment on above: Order Comment: Speci men Type: BLOOD SPECIMEN Ordering Facility: [facility] Address: [address] [place] [address] Performed By: #### 5 7021-8 #### MADIHAMSJOSÉ ANTONIO [facility] CLIA [id number] [address] [place] [address] LAB CLIA [id number] [address] [place] [address] [place] Eosinophils/100 WBC (Bld) 0.9 % Normal [facility] Comment on above: Order Comment: Speci men Type: BLOOD SPECIMEN Ordering Facility: [facility] Address: [address] [place] [address] Performed By: #### 5 7021-8 #### [facility] CLIA [id number] [address] [place] [address] LAB CLIA [id number] [address] [place] [address] [place] Erythrocyte distribution width (RBC) [Ratio] 15.8 % High 11.5-15.0 [facility] Comment on above: Order Comment: Speci men Type: BLOOD SPECIMEN Ordering Facility: [facility] Address: [address] [place] [address] Performed By: #### 5 7021-8 #### [facility] CLIA [id number] [address] [place] [address] LAB CLIA [id number] [address] [place] [address] [place] Hematocrit (Bld) [Volume fraction] 31.8 % Low 39.0-51.0 [facility] Comment on above: Order Comment: Speci men Type: BLOOD SPECIMEN Ordering Facility: [facility] Address: [address] [place] [address] Performed By: #### 5 7021-8 #### [facility] CLIA [id number] [address] [place] [address] LAB CLIA [id number] [address] [place] [address] [place] Hemoglobin (Bld) [Mass/Vol] 10.0 g/dL Low 13.0-17.0 [facility] Comment on above: Order Comment: Speci men Type: BLOOD SPECIMEN Ordering Facility: [facility] Address: [address] [place] [address] Performed By: #### 5 7021-8 #### [facility] CLIA [id number] [address] [place] [address] LAB CLIA [id number] [address] [place] [address] [place] Lymphocytes (Bld) [#/Vol] 1.26 10*3/uL Normal 1.00-4.00 [facility] Comment on above: Order Comment: Speci men Type: BLOOD SPECIMEN Ordering Facility: [facility] Address: [address] [place] [address] Performed By: #### 5 7021-8 #### ABDIRAHMAN [facility] CLIA [id number] [address] [place] [address] LAB CLIA [id number] [facility] [place] [address] [place] Lymphocytes/100 WBC (Bld) 21.9 % Normal [facility] Comment on above: Order Comment: Speci men Type: BLOOD SPECIMEN Ordering Facility: [facility] Address: [address] [place] [address] Performed By: #### 5 7021-8 #### ABDIRAHMAN [facility] CLIA [id number] [address] [place] [address] LAB CLIA [id number] [address] [place] [address] [place] MCH (RBC) [Entitic mass] 33.0 pg Normal 26.0-34.0 [facility] Comment on above: Order Comment: Speci men Type: BLOOD SPECIMEN Ordering Facility: [facility] Address: [address] [place] [address] Performed By: #### 5 7021-8 #### MADIHAMSJOSÉ ANTONIO [facility] CLIA [id number] [address] [place] [address] LAB CLIA [id number] [address] [place] [address] [place] MCHC (RBC) [Mass/Vol] 31.4 g/dL Normal 30.5-36.0 [facility] Comment on above: Order Comment: Speci men Type: BLOOD SPECIMEN Ordering Facility: [facility] Address: [address] [place] [address] Performed By: #### 5 7021-8 #### MADIHAMSJOSÉ ANTONIO [facility] CLIA [id number] [address] [place] [address] LAB CLIA [id number] [facility] [place] [address] [place] MCV (RBC) [Entitic vol] 105.0 fL High 80.0-100.0 [facility] Comment on above: Order Comment: Speci men Type: BLOOD SPECIMEN Ordering Facility: [facility] Address: [address] [place] [address] Performed By: #### 5 7021-8 #### [facility] CLIA [id number] [address] [place] [address] LAB CLIA [id number] [address] [place] [address] [place] Metamyelocytes/100 WBC (Bld) 0.9 % Normal [facility] Comment on above: Order Comment: Speci men Type: BLOOD SPECIMEN Ordering Facility: [facility] Address: [address] [place] [address] Performed By: #### 5 7021-8 #### [facility] CLIA [id number] [address] [place] [address] LAB CLIA [id number] [address] [place] [address] [place] Monocytes (Bld) [#/Vol] 2.08 10*3/uL High <0.87 [facility] Comment on above: Order Comment: Speci men Type: BLOOD SPECIMEN Ordering Facility: [facility] Address: [address] [place] [address] Performed By: #### 5 7021-8 #### [facility] CLIA [id number] [address] [place] [address] LAB CLIA [id number] [address] [place] [address] [place] Monocytes/100 WBC (Bld) 36.0 % Normal [facility] Comment on above: Order Comment: Speci men Type: BLOOD SPECIMEN Ordering Facility: [facility] Address: [address] [place] [address] Performed By: #### 5 7021-8 #### ABDIRAHMAN [facility] CLIA [id number] [address] [place] [address] LAB CLIA [id number] [address] [place] [address] [place] MYELO% 0.9 % Normal [facility] Comment on above: Order Comment: Speci men Type: BLOOD SPECIMEN Ordering Facility: [facility] Address: [address] [place] [address] Performed By: #### 5 7021-8 #### [facility] CLIA [id number] [address] [place] [address] LAB CLIA [id number] [address] [place] [address] [place] Neutrophils (Bld) [#/Vol] 2.27 10*3/uL Normal 1.45-7.50 [facility] Comment on above: Order Comment: Speci men Type: BLOOD SPECIMEN Ordering Facility: [facility] Address: [address] [place] [address] Performed By: #### 5 7021-8 #### [facility] CLIA [id number] [address] [place] [address] LAB CLIA [id number] [address] [place] [address] [place] Neutrophils/100 WBC (Bld) 39.4 % Normal [facility] Comment on above: Order Comment: Speci men Type: BLOOD SPECIMEN Ordering Facility: [facility] Address: [address] [place] [address] Performed By: #### 5 7021-8 #### [facility] CLIA [id number] [address] [place] [address] LAB CLIA [id number] [address] [place] [address] [place] Nucleated RBC (Bld) [#/Vol] 10*3/uL Normal <0.01 [facility] Comment on above: Order Comment: Speci men Type: BLOOD SPECIMEN Ordering Facility: [facility] Address: [address] [place] [address] Performed By: #### 5 7021-8 #### ABDIRAHMAN [facility] CLIA [id number] [address] [place] [address] LAB CLIA [id number] [facility] [place] [address] [place] Nucleated RBC/100 WBC (Bld) [Ratio] 0.0 /100 WBC Normal [facility] Comment on above: Order Comment: Speci men Type: BLOOD SPECIMEN Ordering Facility: [facility] Address: [address] [place] [address] Performed By: #### 5 7021-8 #### [facility] CLIA [id number] [address] [place] [address] LAB CLIA [id number] [address] [place] [address] [place] Ovalocytes LM Ql (Bld) Few Normal [facility] Comment on above: Order Comment: Speci men Type: BLOOD SPECIMEN Ordering Facility: [facility] Address: [address] [place] [address] Performed By: #### 5 7021-8 #### [facility]AMSJ[facility]É ANTONIO [facility] CLIA [id number] [address] [place] [address] LAB CLIA [id number] [address] [place] [address] [place] Platelet mean volume (Bld) [Entitic vol] 10.1 fL Normal 9.0-12.7 [facility] Comment on above: Order Comment: Speci men Type: BLOOD SPECIMEN Ordering Facility: [facility] Address: [address] [place] [address] Performed By: #### 5 7021-8 #### [facility] CLIA [id number] [address] [place] [address] LAB CLIA [id number] [address] [place] [address] [place] Platelets (Bld) [#/Vol] 179 10*3/uL Normal 150-400 [facility] Comment on above: Order Comment: Speci men Type: BLOOD SPECIMEN Ordering Facility: [facility] Address: [address] [place] [address] Performed By: #### 5 7021-8 #### [facility] CLIA [id number] [address] [place] [address] LAB CLIA [id number] [address] [place] [address] [place] Platelets Estimate (Bld) [#/Vol] Adequate Normal [facility] Comment on above: Order Comment: Speci men Type: BLOOD SPECIMEN Ordering Facility: [facility] Address: [address] [place] [address] Performed By: #### 5 7021-8 #### [facility] CLIA [id number] [address] [place] [address] LAB CLIA [id number] [address] [place] [address] [place] Polychromasia LM Ql (Bld) Slight Normal [facility] Comment on above: Order Comment: Speci men Type: BLOOD SPECIMEN Ordering Facility: [facility] Address: [address] [place] [address] Performed By: #### 5 7021-8 #### [facility] CLIA [id number] [address] [place] [address] LAB CLIA [id number] [address] [place] [address] [place] RBC (Bld) [#/Vol] 3.03 10*6/uL Low 4.20-6.00 [facility] Comment on above: Order Comment: Speci men Type: BLOOD SPECIMEN Ordering Facility: [facility] Address: [address] [place] [address] Performed By: #### 5 7021-8 #### [facility] CLIA [id number] [address] [place] [address] LAB CLIA [id number] [address] [place] [address] [place] RED CELL MORPH Reviewed: see result s of individual morphologies Normal [facility] Comment on above: Order Comment: Speci men Type: BLOOD SPECIMEN Ordering Facility: [facility] Address: [address] [place] [address] Performed By: #### 5 7021-8 #### [facility] CLIA [id number] [address] [place] [address] LAB CLIA [id number] [address] [place] [address] [place] WBC (Bld) [#/Vol] 5.77 10*3/uL Normal 3.70-11.00 [facility] Comment on above: Order Comment: Speci men Type: BLOOD SPECIMEN Ordering Facility: [facility] Address: [address] [place] [address] Performed By: #### 5 7021-8 #### [facility] CLIA [id number] [address] [place] [address] LAB CLIA [id number] [address] [place] [address] [place] WBC Left Shift Ql (Bld) Present Normal [facility] Comment on above: Order Comment: Speci men Type: BLOOD SPECIMEN Ordering Facility: [facility] Address: [address] [place] [address] Performed By: #### 5 7021-8 #### [facility] CLIA [id number] [address] [place] [address] LAB CLIA [id number] [address] [place] [address] [place] IMMUNOFIXATION SCREEN, SERUM on 07-23-2023 INTERPRETATION (MPA) Atypical restricted bands are present in the IgG and lambda regions. Consistent with IgG lambda monoclonal gammopathy. Normal [facility] Comment on above: Order Comment: Speci men Type: BLOOD SPECIMEN Ordering Facility: [facility] Address: [address] [place] [address] Performed By: #### I FESC #### [facility] CLIA [id number] [address] [place] MPA RESULT M protein is present. Abnormal No M p rotein is identified. [facility] Comment on above: Order Comment: Speci men Type: BLOOD SPECIMEN Ordering Facility: [facility] Address: [address] [place] [address] Performed By: #### I FES #### [facility] CLIA [id number] [address] [place] [address] [place] STAFF REVIEW ([facility]) Reviewed by Fran Boyd MD, Ph.D ([id number]) Normal [facility] Comment on above: Order Comment: Speci men Type: BLOOD SPECIMEN Ordering Facility: [facility] Address: [address] [place] [address] Performed By: #### I FES #### [facility] CLIA [id number] [address] [place] [address] [place] IMMUNOGLOBULINS GAMon 2022 IgA [Mass/Vol] 72 mg/dL Normal 70-400 [facility] Comment on above: Order Comment: Speci men Type: BLOOD SPECIMEN Ordering Facility: [facility] Address: [address] [place] [address] Performed By: #### S ERIMM #### [facility] CLIA [id number] [address] [place] [address] [place] IgG [Mass/Vol] 777 mg/dL Normal 700-1600 [facility] Comment on above: Order Comment: Speci men Type: BLOOD SPECIMEN Ordering Facility: [facility] Address: [address] [place] [address] Performed By: #### S ERIMM #### [facility] CLIA [id number] [address] [place] [address] [place] IgM [Mass/Vol] 64 mg/dL Normal 40-230 [facility] Comment on above: Order Comment: Speci men Type: BLOOD SPECIMEN Ordering Facility: [facility] Address: [address] [place] [address] Performed By: #### S ERIMM #### [facility] CLIA [id number] [facility] [place] [address] [place] KAPPA/ARDON,FREE,SERon 2022 Immunoglobulin light chains.kappa.free (S) [Mass/Vol] 29.6 mg/L High 3.3-19.4 [facility] Comment on above: Order Comment: Speci men Type: BLOOD SPECIMEN Ordering Facility: [facility] Address: [address] [place] [address] Result Comment: Rare ly, increased serum free light chains levels may not be detected or accurately quantified due to prozone phenomenon or in high viscosity samples using this immunoturbidimetric assay. Correlation with other laboratory results and clinical findings is recommended. The Triana Free Light Chain was performed using the Binding Site Optilite immunoturbidimetric method. Result obtained with different assay methods or kits cannot be used interchangeably. Performed By: #### K LFRS #### [facility] CLIA [id number] [address] [place] [address] [place] Immunoglobulin light chains.kappa/Immunog lobulin light chains.lambda (S) [Mass ratio] 1.86 High 0.26-1.65 [facility] Comment on above: Order Comment: Speci men Type: BLOOD SPECIMEN Ordering Facility: [facility] Address: [address] [place] [address] Performed By: #### K LFRS #### [facility] CLIA [id number] [address] [place] [address] [place] Immunoglobulin light chains.lambda.free [Mass/Vol] 15.9 mg/L Normal 5.7-26.3 [facility] Comment on above: Order Comment: Speci men Type: BLOOD SPECIMEN Ordering Facility: [facility] Address: [address] [place] [address] Result Comment: Rare ly, increased serum free [...] interchangeably. Performed By: #### K LFRS #### [facility] CLIA [id number] [address] [place] [address] [place] PROTEIN ELECTROPHORESIS SERU M WITH CARSON (P)on 07-23-2023 Albumin [Mass/Vol] 2.67 g/dL Low 3.43-5.41 [facility] Comment on above: Order Comment: Speci men Type: BLOOD SPECIMEN Ordering Facility: [facility] Address: [address] [place] [address] Performed By: #### L [id number] #### [facility] CLIA [id number] [address] [place] [address] [place] Alpha 1 globulin Elph [Mass/Vol] 0.54 g/dL High 0.18-0.43 [facility] Comment on above: Order Comment: Speci men Type: BLOOD SPECIMEN Ordering Facility: [facility] Address: [address] [place] [address] Performed By: #### L [id number] #### [facility] CLIA [id number] [address] [place] [address] [place] Alpha 2 globulin Elph [Mass/Vol] 0.94 g/dL Normal 0.42-0.98 [facility] Comment on above: Order Comment: Speci men Type: BLOOD SPECIMEN Ordering Facility: [facility] Address: [address] [place] [address] Performed By: #### L [id number] #### [facility] CLIA [id number] [address] [place] [address] [place] Beta globulin Elph [Mass/Vol] 0.65 g/dL Normal 0.61-1.17 [facility] Comment on above: Order Comment: Speci men Type: BLOOD SPECIMEN Ordering Facility: [facility] Address: [address] [place] [address] Performed By: #### L [id number] #### [facility] CLIA [id number] [address] [place] [address] [place] COMMENT (SERUM PROT ELECTRO) Monoclonal Protein analysis (immunofixation) is not indicated. Normal [facility] Comment on above: Order Comment: Speci men Type: BLOOD SPECIMEN Ordering Facility: [facility] Address: [address] [place] [address] Performed By: #### L [id number] #### [facility] CLIA [id number] [address] [place] [address] [place] Gamma globulin Elph [Mass/Vol] 0.71 g/dL Normal 0.53-1.51 [facility] Comment on above: Order Comment: Speci men Type: BLOOD SPECIMEN Ordering Facility: [facility] Address: [address] [place] [address] Performed By: #### L [id number] #### [facility] CLIA [id number] [address] [place] [address] [place] INTERPRETATION COMMENT FOR PROTEIN ELECTROPHORESIS See separate immunofixation report for characterization of monoclonal gammopathy. Normal [facility] Comment on above: Order Comment: Speci men Type: BLOOD SPECIMEN Ordering Facility: [facility] Address: [address] [place] [address] Performed By: #### L [id number] #### [facility] CLIA [id number] [address] [place] [address] [place] M-PROTEIN LOCATION Beta Fraction 1 Normal C levelPending sale to [facility] Comment on above: Order Comment: Speci men Type: BLOOD SPECIMEN Ordering Facility: [facility] Address: [address] [place] [address] Performed By: #### L [id number] #### [facility] CLIA [id number] [address] [place] [address] [place] Protein Fractions [Interp] An M protein is identified on protein electrophoresis. Abnormal No definitive M protein is identified on protein electrophore sis. [facility] Comment on above: Order Comment: Speci men Type: BLOOD SPECIMEN Ordering Facility: [facility] Address: [address] [place] [address] Performed By: #### L [id number] #### [facility] CLIA [id number] [address] [place] [address] [place] Protein.monoclonal Elph [Mass/Vol] 0.20 g/dL High <=0.00 [facility] Comment on above: Order Comment: Speci men Type: BLOOD SPECIMEN Ordering Facility: [facility] Address: [address] [place] [address] Performed By: #### L [id number] #### [facility] CLIA [id number] [address] [place] [address] [place] SPE STAFF REVIEW Reviewed by Fran Boyd MD, Ph.D ([id number]) Normal [facility] Comment on above: Order Comment: Speci men Type: BLOOD SPECIMEN Ordering Facility: [facility] Address: [address] [place] [address] Performed By: #### L [id number] #### [facility] CLIA [id number] [address] [place] [address] [place] Prot SerPl-mCncon 07-23-2023 Protein [Mass/Vol] 5.5 g/dL Low 6.3-8.0 [facility] Comment on above: Order Comment: Speci men Type: BLOOD SPECIMEN Ordering Facility: [facility] Address: [address] [place] [address] Performed By: #### 2 885-2 #### [facility] CLIA [id number] [address] [place] [address] [place] Immunization Recordson 07-06 Immunization Records [id number]#1.00TIFF [facility] RAD - CT Reporton 06-18-[address] RAD - CT Report [id number]#1.00TIFF [facility] Reminderson 06-09-2023 Reminders - From: Solange Broussard To: EU - Recalls Mckeon; Sent: 06/09/2023 16:03:24 EDT Show up: 01/16/2024 16:03:00 EDT Subject: renal US Due Date/Time: 02/01/2024 16:03:00 EDT Reminder/Recall Patient needs renal US prior to February 2024 appt [facility] Ambulatory Visit Summaryon 1 Ambulatory Visit Summary CHIKI JUAREZ Issa :1945 Visit Date:05/28/2023 Ambulatory Visit Instructions Your Diagnosis Severe obesity Chronic diastolic heart failure Pulmonary hypertension BMI 35.0-35.9,adult Class 1 obesity due to excess calories in adult Your Care Team Attending Physician - Pito Patterson MD Primary Care Physician - Pito Patterson MD This Is Your Medications List [facility] Prescription (Nebulizer accessory set) albuterol (albuterol 0.083% Inh Kasie 3 mL) albuterol (albuterol 0.083% Inh Kasie 3 mL) amoxicillin (amoxicillin 500 mg Cap) aspirin (aspirin 81 mg Oral EC Tab) budesonide (budesonide 0.5 mg/2 mL Inh Susp) calcium-vitamin D cyanocobalamin (Vitamin B12) furosemide (furosemide 40 mg Tab) gabapentin (gabapentin 300 mg Cap) ipratropium nasal (ipratropium Nasal 0.06% Ohlman) levothyroxine (levothyroxine 100 mcg (0.1 mg) Tab) [...] PM EST With: Pito Patterson MD Where: [facility] Invalid Interpretation Code [address] [place] [address]- \.br \ Thursday 11:15 AM EDT \.br\ With: Oni MCKEON MD\.br\ Where: [facility] Ambulatory Visit Summary ALAINA CHIKI Parsons :1945 Visit Date:05/28/2023 Ambulatory Visit Instructions Your Diagnosis Severe obesity Chronic diastolic heart failure Pulmonary hypertension BMI 35.0-35.9,adult Class 1 obesity due to excess calories in adult Your Care Team Attending Physician - Pito Patterson MD Primary Care Physician - Pito Patterson MD This Is Your Medications List [facility] Prescription (Nebulizer accessory set) albuterol (albuterol 0.083% Inh Kasie 3 mL) albuterol (albuterol 0.083% Inh Kasie 3 mL) amoxicillin (amoxicillin 500 mg Cap) aspirin (aspirin 81 mg Oral EC Tab) budesonide (budesonide 0.5 mg/2 mL Inh Susp) calcium-vitamin D cyanocobalamin (Vitamin B12) furosemide (furosemide 40 mg Tab) gabapentin (gabapentin 300 mg Cap) ipratropium nasal (ipratropium Nasal 0.06% Ohlman) levothyroxine (levothyroxine 100 mcg (0.1 mg) Tab) [...] EST With: Navarro VENTURA, Pito Davidson Where: [facility] Invalid Interpretation Code [address] [place] [address]- \.br \ Thursday 11:15 AM EDT \.br\ With: Oni MCKEON MD\.br\ Where: [facility] Family Medicine Office/Clini c Noteon 05-28-2023 Family Medicine Office/Clinic Note HPI Staff Chiki is a 78 year old male presenting to discuss getting a motorized wheelchair or scooter Says he cannot breathe to walk, can't go to football games and has grandchildren in sports or the fair or shopping, if the stores have motorized carts he's okay When goes to see director of sports performance it'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 Normal [facility] Comment on above: Result Comment: Elec [...] numbers. This can be done either in [place] or metric measurements. Note that charts and online BMI calculators are available to help you find your BMI quickly and easily without having to do these calculations yourself. To calculate your BMI in [place] measurements: 1. Measure your weight in [...] for Disease Control and Prevention: www.cdc.gov ? Canadian Heart Association: www.heart.org ? National Heart, Lung, and Blood [place]: www.nhlbi.nih.gov Summary ? Body mass index (BMI) is a number that is calculated from a person's weight and height. ? BMI may help estimate how much of a person's weight is composed of fat. BMI can help identify those who may be at higher risk for certain medical problems. ? BMI can be measured using [place]z measurements or metric measurements. ? BMI charts are used to identify whether you are underweight, normal weight, overweight, or obese. This information is not intended to replace advice given to you by your health care provider. Make sure you discuss any questions you have with your health care provider. Document Revised: 04/25/2020 Document Reviewed: 03/02/2020 [employer] Patient Education ? 2022 [employer]. [facility] Consultation Noteon 05-25-20 23 Consultation Note [id number]#1.00TIFF [facility] Office Visiton 05-21-2023 Follow-up visit [id number] Tremaine Juarez 1945 M Date Provider Department Center 05/21/2023 [facility] Family History Problem Relation Age of Onset Stroke Father Family Status - Relation Status Age at Father Level of Service:61759 [place] OFFICE/OUTPATIENT ESTABLISHED LOW MDM 20-29 MIN Reason for Visit and Comments: Congestive Heart Failure [127] NSVT [Other] - AV block s/p PPM [Other] Normal [facility] Auth for Release of Medical Recordson 05-12-2023 Auth for Release of Medical Records [id number]#1.00CD:12 7 Normal [facility] Consent for Flu Vaccineon Consent for Flu Vaccine [id number]#1.00CD:127 Normal [facility] Ambulatory Visit Summaryon 0 05-11-2023 Ambulatory [...] mg Tab) ipratropium nasal (ipratropium Nasal 0.06% Ohlman) levothyroxine (levothyroxine 100 mcg (0.1 mg) Tab) [...] EST With: Navarro VENTURA, Pito Davidson Where: [facility] Invalid Interpretation Code [address] [place] [address]- \.br \ Thursday 11:15 AM EDT \.br\ With: MIKE VENTURA, Oni Sewell\.br\ Where: [facility] Auth for Release of Medical Recordson 05-11-2023 Auth for Release of Medical Records [id number]#1.00CD:12 7 Normal [facility] Family Medicine Office/Clini c Noteon 05-11-2023 [...] bedtime), # 90 cap(s), Refills(s) 1, Pharmacy: [facility]/pharmacy #[id number], 168, cm, 05/11/23 13:29:00 EDT, Height/Length [...] bedtime), # 90 cap(s), Refills(s) 1, Pharmacy: [facility]/pharmacy #[id number], 168, cm, 05/11/23 13:29:00 EDT, Height/Length Dosing, 99.5, kg, 05/11/23 13:29:00 EDT, Weight Dosing Orders: amoxicillin, 500 mg = 1 cap(s), Oral, Daily, TAKE 1 CAPSULE BY MOUTH EVERY DAY, # 30 cap(s), Refills(s) 0, Pharmacy: [facility]/pharmacy #[id number], 168, cm, 05/11/23 13:29:00 EDT, Height/Length [...] mL, NEB (more content not included)... Normal [facility] Comment on above: Result Comment: Elec [...] Follow these instructions at home: ? Take wrsp-suy-zwseciz and prescription medicines only as told by [...] provider. Document Revised: 08/05/2022 Document Reviewed: 08/05/2022 [employer] Patient Education ? 2022 [employer]. Pulmonary Medicine Chronic Obstructive Pulmonary Disease Chronic obstructive pulmonary disease (COPD) is a long-term (chronic) condition that affects the lungs. COPD is a general term that can be used to describe many different lung problems that cause lung inflammation and limit airflow, including chronic bronchitis and emphysema. If you h (more content not included)... Normal [facility] Physician Referralon 023 Physician Referral [id number]#1.00CD:1 27 [facility] RAD - CT Reporton 04-03-2023 RAD - CT Report [id number]#1.00CD:12 7 [facility] RAD - CT Report [id number]#1.00CD:12 7 [facility] Consent for Procedure/Surger yon 03-31-2023 Consent for Procedure/Surgery [id number]#1.00CD:1 27 [facility] Consent for Treatmenton 03-17 Consent for Treatment [id number]#1.00CD:12 7 [facility] IntraOperative Documentson 0 03-31-2023 IntraOperative Documents [id number]#1.00CD:1 27 [facility] Main OR Intraoperative Recor don 03-31-2023 Main OR Intraoperative Record IntraOp Document Type FTURO Summary Primary Physician: Oni MCKEON MD Finalized Date/Time: 03/31/23 11:56:20 Pt. Name: CHIKI JUAREZ/Sex: 1945 Male Med Rec #: [id number] Physician: Oni MCKEON MD Financial #: [id number] Pt. Type: O Room/Bed: / Admit/Disch: 03/31/23 [...] Elena Kemp Role Performed Surgeon - Primary Mixer Tender - Primary Scrub - Primary Time In [...] Prep Agents Betadine Solution Skin. Condition Intact, Tula, Warm, and Dry Additional None Specimens Collected [...] By: Niki Bradford RN 03/31/23 11:56 Normal [facility] Main OR Preoperative Recordo n 03-31-2023 Main OR Preoperative Record Holding Area Document Type FTURO Summary Primary Physician: Oni MCKEON MD Finalized Date/Time: 03/31/23 11:20:59 Pt. Name: CHIKI JUAREZ/Sex: 1945 Male Med Rec #: [id number] Physician: Oni MCKEON MD Financial #: [id number] Pt. Type: O Room/Bed: / Admit/Disch: 03/31/23 [...] SHALINI Koo RN, Ruthann 03/31/23 11:20 Normal [facility] Operative Reporton Operative Report Patient: BRENDA [...] with antibiotic coverage, Follow up arranged. Normal [facility] Comment on above: Result Comment: Elec tronically Signed By: MIKE VENTURA, Oni Cruz.otf\Date and Time Signed: 03/31/23 12:00 EDT Outpatient Surgery Discharge Instructionon 03-31-2023 Outpatient Surgery Discharge Instruction [id number]#1.00CD:1 27 Normal [facility] RAD - MISCon 03-30-2023 RAD - MISC [id number]#1.00CD:12 7 [facility] RAD - MISCon 03-24-2023 RAD - MISC [id number]#1.00CD:12 7 [facility] RAD - Ultrasound Reporton RAD - Ultrasound Report [id number]#1.00CD:12 7 [facility] RAD - Ultrasound Reporton RAD - Ultrasound Report [id number]#1.00CD:12 7 [facility] RAD - Ultrasound Report [id number]#1.00CD:12 7 [facility] Insurance Correspondenceon 03-13-2023 Insurance Correspondence [id number]#1.00CD:1 27 [facility] Urine Cytology ([facility])on 03-12-2023 Urine Cytology Diagnosis Info Invalid Interpretation Code [facility] Comment on above: Result Comment: A:Ur ine,Urine:Voided Interpretation - MicroScopic Description - Adequacy - Gross Description Site ID:A color V. Light Yellow fixative Alcohol Specimen designated Urine received in alcohol preservative and labeled with the patient?s name, consists of 90ml clear v. light yellow fluid. Electronically signed by : on: 03/12/2023 13:24:22 Performed By: #### 1 [id number] ####[facility] [id number] [place] [address] Ambulatory Visit Summaryon 0 03-09-2023 Ambulatory Visit Summary CHIKI JUAREZ :1945 Visit Date:03/09/2023 Ambulatory Visit Instructions Your Diagnosis History of prostate cancer BPH with urinary obstruction Weak urine stream Microscopic hematuria Tests Performed Urnls Dip Stick Auto w/o Microscopy POC 58549 US Renal -- Results Pending -- Please [...] mg Cap) ipratropium nasal (ipratropium Nasal 0.06% Ohlman) levothyroxine (levothyroxine 100 mcg (0.1 mg) Tab) [...] Follow-Up Appointments Thursday 11:00 AM EDT Where: [facility] Patient Educationon 03-09-20 23 Patient Education [...] Follow these instructions at home: ? Take eeyh-uao-sdxojso and prescription medicines only as told by [...] the medicine (more content not included)... Normal [facility] Urine Cytology ([facility])on 03-09-2023 Method of Extraction Voided Normal [facility] Comment on above: Performed By: #### 1 [id number] ####[facility] [id number] [place] [address] Number of Jars 1 Invalid Interpretation Code [facility] Comment on above: Performed By: #### 1 [id number] ####[facility] [address] [place] [address] Specimen Urine Normal [facility] Comment on above: Performed By: #### 1 [id number] ####[facility] [address] [place] [address] Type of Service Technical Only Normal Fi [facility] Comment on above: Performed By: #### 1 [id number] ####[facility] [address] [place] [address] Urology Office/Clinic Noteon 03-09-2023 Urology Office/Clinic Note [...] prostate) S/p EBRT 06/2019. Pt had a Sutton of 4+3=7. Pt had radiation therapy through [...] [facility] [address], [place] [phone] Additional Instructions: schedule cysto and renal US [...] NEB, q4hr, (more content not included)... Normal [facility] Comment on above: Result Comment: Elec tronically Signed By: Oni MCKEON MD\.br\Date and Time Signed: 03/09/23 12:08 EDT\.br\Electronically Co-Signed By: Nettie Wolff\.otf\Date and Time Co-Signed: 03/09/23 12:07 EDT Retail - Clinical Noteon Retail - Clinical Note [id number]:12 7 Normal [facility] T3 Freeon 01-28-2023 Free T3 [Mass/Vol] 2.0 pg/mL Invalid Interpretation Code 2.0-4.4 [facility] Comment on above: Result Comment: Perf ormed at: [facility] [address] [id number] PhD Sahra Robledo Performed By: #### 2 819664, 17332938, 44223876, 4069790, 7862899, 6634918, 111543114, 5001414, 2804219 ####[facility] [address] [place] [address] Auto Diffon 01-26-2023 Basophils/100 WBC (Bld) 0.3 % Normal 0.0-2.0 [facility] Comment on above: Order Comment: Order Added by Discern Expert. Performed By: #### 2 131877, 48400533, 69544475, 4417878, 9789768, 2528640, 864183206, 2321438, 2879305 ####[facility] [address] [place] [address] Basophils/Leukocytes Auto (Bld) [Pure # fraction] 0.0 E9/L Normal 0.0-0.2 [facility] Comment on above: Order Comment: Order Added by Discern Expert. Performed By: #### 2 947590, 73516008, 47815561, 9756916, 3166821, 5453962, 963508914, 4763596, 6797269 ####[facility] [address] [place] [address] Eosinophils/100 WBC (Bld) 1.0 % Normal 0.0-8.0 [facility] Comment on above: Order Comment: Order Added by Discern Expert. Performed By: #### 2 511322, 44779620, 06802457, 4607551, 9838783, 6683497, 216545833, 6431419, 8488054 ####[facility] [address] [place] [address] Eosinophils/Leukocyt es Auto (Bld) [Pure # fraction] 0.0 E9/L Normal 0.0-0.5 [facility] Comment on above: Order Comment: Order Added by Discern Expert. Performed By: #### 2 772604, 96370265, 07793985, 0385080, 2691152, 8133324, 639546473, 9318261, 3258003 ####[facility] [address] [place] [address] Lymphocytes/100 WBC (Bld) 19.4 % Normal 14.0-50.0 [facility] Comment on above: Order Comment: Order Added by Discern Expert. Performed By: #### 2 053174, 25816080, 16461567, 7738139, 2555742, 8625034, 580906714, 6060424, 2542297 ####[facility] [address] [place] [address] Lymphocytes/Leukocyt es Auto (Bld) [Pure # fraction] 0.8 E9/L Low 1.0-4.0 [facility] Comment on above: Order Comment: Order Added by Discern Expert. Performed By: #### 2 621359, 86289254, 06269719, 5074075, 4407417, 0315536, 164515694, 1118394, 3901390 ####[facility] [address] [place] [address] Monocytes/100 WBC (Bld) 34.7 % High 4.0-14.0 [facility] Comment on above: Order Comment: Order Added by Discern Expert. Performed By: #### 2 462155, 09603744, 96775470, 8447091, 8958514, 7019314, 157254151, 4308630, 5787606 ####[facility] [address] [place] [address] Monocytes/Leukocytes Auto (Bld) [Pure # fraction] 1.4 E9/L High 0.2-1.0 [facility] Comment on above: Order Comment: Order Added by Discern Expert. Performed By: #### 2 323113, 76611904, 55603782, 1963197, 2005299, 2773099, 564795425, 8524625, 1736701 ####[facility] [address] [place] [address] Neutrophils/100 WBC (Bld) 44.6 % Normal 36.0-75.0 [facility] Comment on above: Order Comment: Order Added by Discern Expert. Performed By: #### 2 749669, 46625789, 28561316, 0804110, 7808534, 8029579, 134614249, 8594541, 3116525 ####[facility] [address] [place] [address] Neutrophils/Leukocyt es Auto (Bld) [Pure # fraction] 1.7 E9/L Low 2.0-7.5 [facility] Comment on above: Order Comment: Order Added by Discern Expert. Performed By: #### 2 141608, 54498658, 39260951, 3751415, 5357493, 8400878, 694443431, 9363420, 8322052 ####[facility] [address] [place] [address] CBC w/ Auto Diffon 3 Erythrocyte distribution width (RBC) [Ratio] 15.8 % High 10.9-14.2 [facility] Comment on above: Performed By: #### 2 137469, 71988666, 18110773, 6211393, 3397398, 5511895, 234896712, 6656652, 1963364 ####[address] [place] [address] Hematocrit (Bld) [Volume fraction] 33.9 % Low 37.7-49.0 [facility] Comment on above: Performed By: #### 2 466176, 52114377, 83497680, 1429106, 1269842, 4719082, 084255346, 8850812, 7321785 ####[facility] [address] [place] [address] Hemoglobin (Bld) [Mass/Vol] 11.1 g/dL Low 13.5-17.5 [facility] Comment on above: Performed By: #### 2 719839, 43608708, 35773242, 2237656, 3840117, 6035102, 926825246, 8979968, 1845859 ####[address] [place] [address] MCH (RBC) [Entitic mass] 33.2 pg Normal 27.0-34.0 [facility] Comment on above: Performed By: #### 2 204821, 62873759, 70103843, 0927513, 7207799, 1608966, 856192333, 6075328, 3890936 ####[facility] [address] [place] [address] MCHC (RBC) [Mass/Vol] 32.7 g/dL Normal 31.4-36.0 [facility] Comment on above: Performed By: #### 2 392673, 27433141, 22543831, 6788277, 3187078, 4075827, 114709532, 3740817, 4676892 ####[address] [place] [address] MCV (RBC) [Entitic vol] 101.5 fL High 80.0-100.0 [facility] Comment on above: Performed By: #### 2 108978, 65447689, 02686841, 0111648, 1122349, 1072219, 582647072, 9792206, 2597695 ####[facility] [address] [place] [address] Platelet mean volume (Bld) [Entitic vol] 9.2 fL Normal 6.4-10.8 [facility] Comment on above: Performed By: #### 2 170991, 96390595, 09447998, 6974700, 1250876, 7885304, 333524874, 2616008, 1509735 ####[facility] [address] [place] [address] Platelets (Bld) [#/Vol] 225.0 E9/L Normal 150.0-500.0 [facility] Comment on above: Performed By: #### 2 774995, 11065672, 40995558, 9116281, 4449907, 4862869, 725433307, 3745170, 2725462 ####[facility] [address] [place] [address] RBC (Bld) [#/Vol] 3.3 E12/L Low 4.3-5.9 [facility] Comment on above: Performed By: #### 2 919641, 26008237, 05221164, 3489926, 1214164, 6057850, 667251977, 5702771, 6486228 ####[facility] [address] [place] [address] WBC corrected for nucl RBC Auto (Bld) [#/Vol] 3.9 E9/L Low 4.0-11.0 [facility] Comment on above: Result Comment: Slid e reviewed by ts . Performed By: #### 2 247155, 61507793, 09316856, 5855217, 3850790, 4645847, 395068098, 5060291, 6397780 ####[facility] [address] [place] [address] CHEMISTRYOrdered By: SYSTEM SYSTEM on 01-26-2023 25-hydroxyvitamin [...] 142 mmol/L Normal 135 - 145 mmol/L [facility] Remisol TSH Qn 3.71 m[IU]/L Normal 0.34 - 5.60 mcIU/mL FT Remisol Urea nitrogen [Mass/Vol] 20 mg/dL Normal 5 - 21 mg/dL [facility] Remisol Urea nitrogen/Creatinine [Mass ratio] 13 mg/mg Normal 10 - 20 FT Remisol CMPon 01-26-2023 Albumin [Mass/Vol] 3.4 g/dL Normal 3.3-5.0 [facility] Comment on above: Performed By: #### 2 478372, 21401723, 74215509, 3082470, 2545286, 3996228, 832080394, 4802855, 3225624 ####[facility] [address] [place] [address] Albumin/Globulin (S) [Mass conc ratio] 0.9 Low 1.1-2.2 [facility] Comment on above: Performed By: #### 2 032605, 38462014, 56603205, 8841829, 3706715, 1132351, 853070920, 7821204, 1628469 ####[facility] [address] [place] [address] ALP [Catalytic activity/Vol] 93 Int._Unit/L Normal 21-98 [facility] Comment on above: Performed By: #### 2 174773, 15575918, 50337055, 7317449, 0557392, 1372849, 668889632, 2699209, 3697935 ####[facility] [address] [place] [address] ALT No additional P-5'-P [Catalytic activity/Vol] 18 Int._Unit/L Normal 6-46 [facility] Comment on above: Performed By: #### 2 778988, 57909872, 81952900, 9648523, 5715584, 2577412, 220408015, 2087843, 1086583 ####[facility] [address] [place] [address] Anion gap [Moles/Vol] 12 mmol/L Normal 6-16 [facility] Comment on above: Performed By: #### 2 570624, 05200472, 71198597, 5309980, 4996657, 9014885, 682655615, 8742125, 2783273 ####[facility] [address] [place] [address] AST [Catalytic activity/Vol] 15 Int._Unit/L Normal 5-43 [facility] Comment on above: Performed By: #### 2 841549, 81578886, 93103310, 2992534, 1380725, 0450330, 398848411, 6096957, 2705930 ####[facility] [address] [place] [address] Bilirubin [Mass/Vol] 0.3 mg/dL Normal 0.0-1.1 [facility] Comment on above: Performed By: #### 2 110573, 38781577, 81215803, 2254412, 3242991, 4930631, 848103146, 3367890, 7829082 ####[facility] [address] [place] [address] Calcium [Mass/Vol] 8.6 mg/dL Low 8.9-11.1 [facility] Comment on above: Performed By: #### 2 315590, 95893607, 83673071, 5663517, 4822492, 6059583, 669083377, 5033340, 6778205 ####[facility] [address] [place] [address] Chloride [Moles/Vol] 107 mmol/L Normal 101-111 [facility] Comment on above: Performed By: #### 2 769896, 17583683, 30560173, 6166837, 2992272, 8476362, 345338042, 6553070, 0974116 ####[facility] [address] [place] [address] CO2 [Moles/Vol] 27 mmol/L Normal 21-31 [facility] Comment on above: Performed By: #### 2 842588, 83978195, 69415604, 8753187, 2773926, 2690642, 285694077, 4916375, 1002835 ####[facility] [address] [place] [address] Creatinine [Mass/Vol] 1.5 mg/dL High 0.5-1.3 [facility] Comment on above: Performed By: #### 2 615820, 33250021, 03140917, 0799142, 5162807, 9588226, 922719900, 9785160, 5177198 ####[facility] [address] [place] [address] Globulin (S) [Mass/Vol] 3.7 g/dL Normal 1.4-4.0 [facility] Comment on above: Performed By: #### 2 426379, 58300443, 79967488, 2610160, 5235680, 8057424, 459631825, 0691522, 7188195 ####[facility] [address] [place] [address] Glucose [Mass/Vol] 138 mg/dL Normal 55-199 [facility] Comment on above: Result Comment: If t his glucose result represents a fasting glucose, interpretation should refer to the following reference range: 55-99 mg/dL Performed By: #### 2 800226, 50454498, 89560596, 7641644, 7076962, 8657772, 680207063, 1342996, 7910374 ####[facility] [address] [place] [address] Potassium [Moles/Vol] 4.3 mmol/L Normal 3.5-5.3 [facility] Comment on above: Performed By: #### 2 946502, 50510499, 34550616, 1014457, 9417433, 1644890, 643247499, 0213743, 9863648 ####[facility] [address] [place] [address] Protein [Mass/Vol] 7.1 g/dL Normal 6.0-7.8 [facility] Comment on above: Performed By: #### 2 143069, 38974188, 59041113, 6176377, 8217891, 8502632, 311879787, 2758191, 6075750 ####[facility] [address] [place] [address] Sodium [Moles/Vol] 142 mmol/L Normal 135-145 [facility] Comment on above: Performed By: #### 2 046032, 08380049, 57233292, 2461951, 6944226, 6927549, 528391775, 2347399, 0597077 ####[facility] [address] [place] [address] Urea nitrogen [Mass/Vol] 20 mg/dL Normal 5-21 [facility] Comment on above: Performed By: #### 2 341668, 00668354, 63706806, 3641663, 3088638, 4224586, 424894797, 1403779, 9206919 ####[facility] [address] [place] [address] Urea nitrogen/Creatinine [Mass ratio] 13 No Units Normal 10-20 [facility] Comment on above: Performed By: #### 2 092852, 36189753, 52912698, 7739863, 0397265, 3454485, 390421319, 7433658, 7238250 ####[facility] [address] [place] [address] Free T4on 01-26-2023 Free T4 [Mass/Vol] 1.10 ng/dL Normal 0.58-1.64 [facility] Comment on above: Performed By: #### 2 502561, 78309455, 94566771, 6092385, 3219212, 5915946, 137327267, 1071445, 3897590 ####[facility] [address] [place] [address] HEMATOLOGYOrdered By: SYSTEM SYSTEM on 01-26-2023 Basophils/100 [...] a day (at bedtime) ipratropium Nasal 0.06% [place], 2 spray(s), Nasal, BID, 1 refills levothyroxine [...] Known Allergies Immunizations Vaccine Date Status SARSCoV2 mRNA(pntcjzwlz-fpxs-qjuun s) vac 03/11/2022 Recorded SARS-CoV-2 (COVID-19) mRNA [...] influenza virus vaccine, inactivated 08/04/2017 Recorded Normal [facility] PSA Screen, Totalon 01-27-20 Prostate specific Ag [Mass/Vol] 0.3 ng/mL Normal 0.1-3.5 [facility] Comment on above: Result Comment: The concentration of PSA determined by different manufacturers can vary due to differences in assay methods and reagent specificity. Values obtained from different assay methods cannot be used interchangeably. The methodology used for this result was chemiluminescence using [employer]'s Access Hybritech PSA reagent. Performed By: #### 2 142373, 67796943, 11674416, 5686483, 3537825, 7754000, 902709633, 9901118, 7824648 #### [facility] [address] [place] [address] TSHon 01-26-2023 TSH Qn 3.71 m[IU]/L Normal 0.34-5.60 [facility] Comment on above: Performed By: #### 2 696545, 35244219, 27281886, 5015093, 8154099, 7143401, 722939316, 5680905, 5774108 ####[facility] [address] [place] [address] Vitamin D 25 Hydroxyon 01-26 25-hydroxyvitamin D3 [Mass/Vol] 69.4 ng/mL Normal 30.0-100.0 [facility] Comment on above: Result Comment: Vit gordon D deficiency has been defined as a level of serum 25-OH vitamin D less than 20 ng/mL (1,2) by the [place] of [employer] and an Endocrine Society practice guideline. The Endocrine Society further defined vitamin D insufficiency as a level between 21 and 29 ng/mL (2). 1. IOM ([place] of [employer]). 2010. Dietary reference intakes for calcium and D. [place]: The National Academies Press. 2. Fuad MF, Thien MARTINO, Lisa HEIN, et al. Evaluation, treatment, and prevention of vitamin D deficiency: an Endocrine Society clinical practice guideline. JCEM. 2010; 96 (7):1911-30. Performed By: #### 2 712695, 10911511, 32915298, 2253992, 4135998, 9163304, 077587182, 8030533, 0317161 ####[facility] [address] [place] [address] eGFRon 01-26-2023 GFR/1.73 sq M.predicted among non-blacks MDRD (S/P/Bld) [Vol rate/Area] 48 mL/min/1.73 m2 Low >=59 [facility] Comment on above: Order Comment: Order added by Discern Expert. Result Comment: Medical Technical Writer monica kidney disease could be indicated at eGFR's of less than 60 mL/min/1.73m2. Kidney failure is indicated at less than 15 mL/min/1.73m2. Performed By: #### 2 445999, 88494607, 43236242, 8331237, 3914255, 0879183, 167079735, 1179975, 4145204 ####[facility] [address] [place] [address] Family Medicine Office/Clini c Noteon 01-22-2023 Family [...] as prescribed for COPD, [facility] ([facility] Supply, 162, cm, 01/22/23 [...] bedtime), # 30 cap(s), Refills(s) 0, Pharmacy: [facility]/pharmacy #[id number], 162, cm, 01/22/23 13:19:00 EDT, Height/Length Dosing, 98.3, kg, 01/22/23 13:19:00 EDT, Weight Dosing Misc Prescription, Nebulizer accessory set, See Instructions, 1 EA, 0, pt to use nebulizer as prescribed for COPD, [facility] ([facility] ), Supply, 162, cm, 01/22/23 [...] bedtime), # 30 cap(s), Refills(s) 0, Pharmacy: [facility]/pharmacy #[id number], 162, cm, 01/22/23 13:19:00 EDT, Height/Length Dosing, 98.3, kg, 01/22/23 13:19:00 EDT, Weight Dosing Misc Prescription, Nebulizer accessory set, See Instructions, 1 EA, 0, pt to use nebulizer as prescribed for COPD, [facility] ([facility] ), Supply, 162, cm, 01/22/23 13:19:00 EDT, Height/Length Dosing, 98.3, kg, 01/22/23 13:19:00 EDT, Weight Dosing 4. 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 Nasal congestion (R09.81: Nasal congestion) pt had URI during [facility] visit and was prescribed zpak. he got diarrhea from it but was able to finish it. he states he was previously prescribed a nasal spray by dr. Berg. refills of that was sent to [facility] Orders: ipratropium nasal, 2 spray(s), Nasal, BID, 1 EA, Refill(s) 1, PLACE 2 SPRAYS IN EACH NOSTRIL TWO TIMES DAILY., [facility]/pharmacy #[id number], 162, cm, 01/22/23 13:19:00 EDT, Height/Length Dosing, 98.3, kg, 01/22/23 13:19:00 EDT, Weight Dosing Follow-up No qualifying data available Problem List/Past Medical History Ongoing B12 deficiency BPH with urinary obstruction Compression fracture of thoracic vertebra with routine healing, unspecified thoracic vertebral level, subsequent encounter COPD with asthma Essential tremor Former smoker History (more content not included)... Normal [facility] Comment on above: Result Comment: Elec [...] disease, unspecified (more content not included)... Normal [facility] Comment on above: Result Comment: Elec tronically Signed By: Marlys Carcamo\.br\Date and Time Signed: 01/19/23 15:49 EDT\.br\Electronically Co-Signed By: Tres Queen.otf\Date and Time Co-Signed: 01/16/23 14:05 EDT [place] 01-19-2023 Screens [id number]:12 7 Normal [facility] Patient Educationon 01-17-20 23 Patient Education Caregiving [...] night-lights. ? Place frequently used items in infn-cm-klqct places. Lower the shelves around your home [...] the way. ? Do not use floor italian or wax that makes floors slippery. If [...] include working with a physical therapist or service dog trainer to improve your strength, balance, and endurance. Where to find more information ? Centers for Disease Control and Prevention, [place]: www.cdc.gov ? National [place] on Aging: www.yasmin.nih.gov Contact a health care [...] health ca (more content not included)... Normal [facility] Office Visiton 11-28-2022 Follow-up visit [id number] Tremaine Juarez 1945 [facility] Provider Department Center 11/28/2022 [facility]NAST[facility]IA [facility] Family History Problem Relation Age of Onset Stroke Father Family Status - Relation Status Age at Father Level of Service:14990 [place] OFFICE/OUTPATIENT ESTABLISHED LOW MDM 20-29 MIN Reason for Visit and Comments: Hyperlipidemia [182] Shortness of Breath [187329] Normal [facility] Family Medicine Office/Clini c Noteon 10-29-2022 Family Medicine Office/Clinic Note Chief Complaint sinusitis HPI Staff Patient is here to establish care Establish Care: History: Any previous diagnosis: htn,thyroid History of seeing any specialist:pulmonary When was your last doctors visit: Last provider:Dr. Sherwood Any recent labs:07/17/23 in [place] Acute: Current issues/complaints: sinus infection Health Maintenance [...] for cystic fibrosis. Chiki reports that his director of sports performance, Dr. Berg from the [facility] told him that he is symptomatic. [...] will try to get documentation from his director of sports performance about this lung condition that he needs [...] thoracic vertebra (more content not included)... Normal [facility] Comment on above: Result Comment: Elec [...] VENTURA, Oni Sewell Where: [facility] ----- CHIKI JUAREZ ([id number]) 1945 M Date Time Provider Department 08/05/22 [...] Status:Closed by LYNSEY DIAZ on 08/05/22 Normal [facility] PROF CHEM 8 (BAS METB)on Anion gap [Moles/Vol] 14.0 mmol/L Normal [facility] Comment on above: Performed By: #### B MP ####[facility] [address] [place], [place] [address]Dr. Trevor Nichols Calcium [Mass/Vol] 8.8 mg/dL Normal 8.5-10.1 [facility] Comment on above: Performed By: #### B MP ####[facility] [address] [place], [place] [address]Dr. Trevor Nichols Chloride [Moles/Vol] 104 mmol/L Normal 98-107 [facility] Comment on above: Performed By: #### B MP ####[facility] [address] [place], [place] [address]Dr. Trevor Nichols CO2 [Moles/Vol] 26.0 mmol/L Normal 21.0-32.0 [facility] Comment on above: Performed By: #### B MP ####[facility] [address] [place], [place] [address]Dr. Trevor Nichols Creatinine [Mass/Vol] 1.49 mg/dL Critically high 0.70-1.30 [facility] Comment on above: Performed By: #### B MP ####[facility] [address] [place], [place] [address]Dr. Trevor Nichols EGFR-AF LIBERIAN 56 mL/min/1.73m2 Critically low >=60 [facility] Comment on above: Performed By: #### B MP ####[facility] [address] [place], [place] [address]Dr. Trevor Nichols EGFR-NON AF LIBERIAN 46 mL/min/1.73m2 Critically low >=60 [facility] Comment on above: Performed By: #### B MP ####[facility] [address] [place], [place] [address]Dr. Trevor Nichols Glucose [Mass/Vol] 115 mg/dL Critically high 74-106 [facility] Comment on above: Performed By: #### B MP ####[facility] [address] [place], [place] [address]Dr. Trevor Nichols Potassium [Moles/Vol] 4.0 mmol/L Normal 3.5-5.1 [facility] Comment on above: Performed By: #### B MP ####[facility] [address] [place] [address]Dr. Trevor Nichols Sodium [Moles/Vol] 140 mmol/L Normal 136-145 [facility] Comment on above: Performed By: #### B MP ####[facility] [address] [place] [address]Dr. Trevor Nichols Urea nitrogen [Mass/Vol] 22.0 mg/dL Critically high 7.0-18.0 [facility] Comment on above: Performed By: #### B MP ####[facility] [address] [place] [address]Dr. Trevor Nichols Urea nitrogen/Creatinine [Mass ratio] 14.8 mg/mg Normal [facility] Comment on above: Performed By: #### B MP ####[facility] [address] [place] [address]Dr. Trevor Nichols NM STRESS/REST MULTIon 04-16 NM STRESS/REST MULTI Patient: JANNETH JUAREZ Exam Date: 04/16/2022 : 1945 Gender:M Ordering : DR DANIELLA EASTON M.D. Admission #: [id number] Family : DR WILL SHERWOOD . Order #: [id number] CLICK HERE TO VIEW EXAM RADIOLOGY REPORT [...] Beatty MD on 04/16/2022 at 10:23 Normal [facility] ECHOCARDIO M/2D COMPLETEon 0 02-19-2022 ECHOCARDIO M/2D COMPLETE Patient: CHIKI JUAREZ Exam Date: 02/19/2022 : 1945 Gender:M Ordering : CRISTÓBAL DouglasJeffery JENI Admission #: [id number] Family : DR WILL SHERWOOD . Order #: [id number] CLICK HERE TO VIEW EXAM ECHOCARDIOGRAM REPORT [...] Easton M.D. on 02/19/2022 at 19:53 Normal [facility] LIPID PROFILEon 02-10-2022 CHOL-HDL RATIO NORM SEE BELOW Normal [facility] Comment on above: Result Comment: 3.3 - 4.4 LOW RISK 4.4 - 7.1 AVERAGE RISK 7.1 - 11.0 MODERATE RISK >11.0 HIGH RISK Performed By: #### L IPID #### [facility] [address] [place] [address] Dr. Trevor Nichols Cholesterol [Mass/Vol] 171 mg/dL Normal <=200 [facility] Comment on above: Performed By: #### L IPID #### [facility] [address] [address] [address] Trevor Nichols Cholesterol in HDL [Mass/Vol] 40 mg/dL Normal 40-60 [facility] [place] [facility] Comment on above: Performed By: #### L IPID #### [facility] [address] [address] [address] rTevor Nichols Cholesterol in LDL [Mass/Vol] 114.0 mg/dL Normal [facility] [place] [facility] Comment on above: Performed By: #### L IPID #### [facility] [address] [place] [address] Dr. Trevor Nichols Cholesterol.total/Ch olesterol in HDL [Mass ratio] 4.3 {ratio} Normal [facility] [place] [facility] Comment on above: Performed By: #### L IPID #### [facility] [address] [address] [address] Trevor Nichlos HDL NORMAL > or = 60 mg/dl - LO W CARDIOVASCULAR RISK <40 mg/dl - HIGH CARDIOVASCULAR RISK Normal [facility] [place] [facility] Comment on above: Performed By: #### L IPID #### [facility] [address] [place] [address] Dr. Trevor Nichols LDL CALC NORMAL SEE BELOW Normal [facility] Comment on above: Result Comment: <100 mg/dl OPTIMAL 100 - 129 mg/dl NEAR OR ABOVE OPTIMAL 130 - 159 mg/dl BORDERLINE HIGH 160 - 189 mg/dl HIGH >190 mg/dl VERY HIGH Performed By: #### L IPID #### [facility] [address] [place] [address] Dr. Trevor Nichols Triglyceride [Mass/Vol] 85 mg/dL Normal <=150 [facility] [place] [facility] Comment on above: Performed By: #### L IPID #### [facility] [address] [place] [address] Dr. Trevor Nichols VLDL CALC 17.0 mg/dL Normal [facility] [place] [facility] Comment on above: Performed By: #### L IPID #### [facility] [address] [place] [address] Dr. Trevor Nichols BNPon 02-05-2022 Natriuretic peptide B (Bld) [Mass/Vol] 231.0 pg/mL Normal <=900.0 [facility] [place] [facility] Comment on above: Performed By: #### H STROPN, BNP, BMP #### [facility] [address] [place] [address] Dr. Trevor Nichols CBC W MANUAL DIFFon 02-06-20 ANISOCYTOSIS 1+ Normal [facility] [place] [facility] Comment on above: Performed By: #### C BCNADIA #### [facility] [address] [address] [address] Trevor Nichols ATYPICAL LYMPH # Normal [facility] Comment on above: Performed By: #### C JOBY #### [facility] [address] [address] [address] Trevor Nichols ATYPICAL LYMPH % Normal [facility] Comment on above: Performed By: #### C BCNADIA #### [facility] [address] [address] [address] Trevor Nichols BAND # 0.3 103/ul Normal 0.0-0.3 [facility] [place] [facility] Comment on above: Performed By: #### C JOBY #### [facility] [address] [place] [address] Dr. Trevor Nichols BAND % 6 % Critically high 0-5 [facility] Comment on above: Performed By: #### C JOBY #### [facility] [address] [place] [address] Dr. Trevor Nichols BASOM # 0.00 103/ul Normal 0.00-0.10 [facility] [place] [facility] Comment on above: Performed By: #### C JOBY #### [facility] [address] [place] [address] Dr. Trevor Nichols BASOM % 0.0 % Critically low 0.2-2.0 [facility] Comment on above: Performed By: #### C JOBY #### [facility] [address] [place] [address] Dr. Trevor Nichols BLAST # Normal [facility] [place] [facility] Comment on above: Performed By: #### C JOBY #### [facility] [address] [place] [address] Dr. Trevor Nichols BLAST % Normal [facility] [place] [facility] Comment on above: Performed By: #### C JOBY #### [facility] [address] [place] [address] Dr. Trevor Nichols CORRECTED WBC Normal 4.0-11.0 [facility] Comment on above: Performed By: #### C JOBY #### [facility] [address] [address] [address] Trevor Nichols EOS # 0.04 103/ul Normal 0.00-0.70 [facility] [place] [facility] Comment on above: Performed By: #### C JOBY #### [facility] [address] [place] [address] Dr. Trevor Nichols EOS% 1.0 % Normal 0.9-7.0 [facility] [place] [facility] Comment on above: Performed By: #### C JOBY #### [facility] [address] [address] [address] Trevor Nichols HCT 36.4 % Critically low 42.0-54.0 [facility] Comment on above: Performed By: #### C JOBY #### [facility] [address] [place] [address] Dr. Trevor Nichols HGB 11.4 g/dl Critically low 14.0-18.0 [facility] Comment on above: Performed By: #### C JOBY #### [facility] [address] [place] [address] Dr. Trevor Nichols HYPOCHROMASIA SLIGHT Normal [facility] Comment on above: Performed By: #### C JOBY #### [facility] [address] [place] [address] Dr. Trevor Nichols LYMPHM # 1.19 103/ul Critically low 1.20-3.80 [facility] Comment on above: Performed By: #### C JOBY #### [facility] [address] [place] [address] Dr. Trevor Nichols LYMPHM% 27.0 % Normal 20.5-60.0 [facility] Comment on above: Performed By: #### C JOBY #### [facility] [address] [place] [address] Dr. Trevor Nichols MCH 32.5 pg Normal 25.9-34.0 [facility] Comment on above: Performed By: #### C JOBY #### [facility] [address] [place] [address] Dr. Trevor Nichols MCHC 31.3 g/dl Normal 29.9-35.2 [facility] Comment on above: Performed By: #### C JOBY #### [facility] [address] [address] [address] Trevor Nichols MCV 103.7 fL Critically high 80.0-94.0 [facility] Comment on above: Performed By: #### C JOBY #### [facility] [address] [place] [address] Dr. Trevor Nichols METAMYELOCYTE # Normal [facility] Comment on above: Performed By: #### C JOBY #### [facility] [address] [place] [address] Dr. Trevor Nichols METAMYELOCYTE % Normal [facility] Comment on above: Performed By: #### C JOBY #### [facility] [address] [place] [address] Dr. Trevor Nichols MONOM# 1.28 103/ul Critically high 0.30-0.80 [facility] Comment on above: Performed By: #### C JOBY #### [facility] [address] [place] [address] Dr. Trevor Nichols MONOM% 29.0 % Critically high 1.7-12.0 [facility] Comment on above: Performed By: #### C JOBY #### [facility] [address] [place] [address] Dr. Trevor Nichols MPV 10.5 fL Normal 9.5-13.5 [facility] [place] [facility] Comment on above: Performed By: #### C JOBY #### [facility] [address] [place] [address] Dr. Trevor Nichols MYELOCYTE # Normal [facility] Comment on above: Performed By: #### C JOBY #### [facility] [address] [place] [address] Dr. Trevor Nichols MYELOCYTE % Normal [facility] Comment on above: Performed By: #### C JOBY #### [facility] [address] [place] [address] Dr. Trevor Nichols NRBC Normal [facility] Comment on above: Performed By: #### C JOBY #### [facility] [address] [address] [address] Trevor Nichols PLT 161 103/ul Normal 150-450 [facility] Comment on above: Performed By: #### C JOBY #### [facility] [address] [address] [address] Trevor Nichols RBC 3.51 106/ul Critically low 4.70-6.10 [facility] Comment on above: Performed By: #### C JOBY #### [facility] [address] [address] [address] Trevor Nichols RDW 16.0 % Critically high 11.0-15.0 [facility] Comment on above: Performed By: #### Brodie HEMPHILL #### [facility] [address] [address] [address] Trevor Nichols SEG # 1.63 103/ul Normal 1.40-6.50 [facility] [place] [facility] Comment on above: Performed By: #### Brodie HEMPHILL #### [facility] [address] [address] [address] Trevor Nichols SEG % 37.0 % Critically low 43.0-75.0 [facility] Comment on above: Performed By: #### Brodie HEMPHILL #### [facility] [address] [address] [address] Trevor Nichols WBC 4.4 103/ul Normal 4.0-11.0 [facility] [place] [facility] Comment on above: Performed By: #### Brodie HEMPHILL #### [facility] [address] [address] [address] Trevor Nichols PROF 14(COMP METB)on 022 Albumin [Mass/Vol] 3.4 g/dL Normal 3.4-5.0 [facility] Comment on above: Performed By: #### H STROPN, BNP, BMP #### [facility] [address] [address] [address] Trevor Nichols Albumin/Globulin [Mass ratio] 0.9 {ratio} Normal [facility] [place] [facility] Comment on above: Performed By: #### H STROPN, BNP, BMP #### [facility] [address] [address] [address] Trevor Nichols ALP [Catalytic activity/Vol] 99 U/L Normal 46-116 [facility] [place] [facility] Comment on above: Performed By: #### H STROPN, BNP, BMP #### [facility] [address] [address] [address] Trevor Nichols ALT [Catalytic activity/Vol] 18 U/L Normal 16-63 [facility] Comment on above: Performed By: #### H STROPN, BNP, BMP #### [facility] [address] [address] [address] Trevor Nichols Anion gap [Moles/Vol] 13.5 mmol/L Normal [facility] [place] [facility] Comment on above: Performed By: #### H STROPN, BNP, BMP #### [facility] [address] [address] [address] Trevor Nichols AST [Catalytic activity/Vol] 10 U/L Critically low 15-37 [facility] [place] [facility] Comment on above: Performed By: #### H STROPN, BNP, BMP #### [facility] [address] [address] [address] Trevor Nichols Bilirubin [Mass/Vol] 0.5 mg/dL Normal 0.2-1.0 [facility] [place] [facility] Comment on above: Performed By: #### H STROPN, BNP, BMP #### [facility] [address] [address] [address] Trevor Nichols Calcium [Mass/Vol] 8.8 mg/dL Normal 8.5-10.1 [facility] Comment on above: Performed By: #### H STROPN, BNP, BMP #### [facility] [address] [address] [address] Trevor Nichols Chloride [Moles/Vol] 106 mmol/L Normal 98-107 [facility] [place] [facility] Comment on above: Performed By: #### H STROPN, BNP, BMP #### [facility] [address] [address] [address] Trevor Nichols CO2 [Moles/Vol] 24.3 mmol/L Normal 21.0-32.0 [facility] Comment on above: Performed By: #### H STROPN, BNP, BMP #### [facility] [address] [address] [address] Trevor Nichols Creatinine [Mass/Vol] 1.35 mg/dL Critically high 0.70-1.30 [facility] [place] [facility] Comment on above: Performed By: #### H STROPN, BNP, BMP #### [facility] [address] [address] [address] Trevor Nichols EGFR-AF LIBERIAN >60 Normal >=60 [facility] Comment on above: Performed By: #### H STROPN, BNP, BMP #### [facility] [address] [address] [address] Trevor Nichols EGFR-NON AF LIBERIAN 52 mL/min/1.73m2 Critically low >=60 [facility] [place] [facility] Comment on above: Performed By: #### H STROPN, BNP, BMP #### [facility] [address] [place] [address] Dr. Trevor Nichols Globulin (S) [Mass/Vol] 3.8 g/dL Normal [facility] [place] [facility] Comment on above: Performed By: #### H STROPN, BNP, BMP #### [facility] [address] [place] [address] Dr. Trevor Nichols Glucose [Mass/Vol] 103 mg/dL Normal 74-106 [facility] Comment on above: Performed By: #### H STROPN, BNP, BMP #### [facility] [address] [place] [address] Dr. Trevor Nichols Potassium [Moles/Vol] 3.8 mmol/L Normal 3.5-5.1 [facility] Comment on above: Performed By: #### H STROPN, BNP, BMP #### [facility] [address] [place] [address] Dr. Trevor Nichols Protein [Mass/Vol] 7.2 g/dL Normal 6.4-8.2 [facility] Comment on above: Performed By: #### H STROPN, BNP, BMP #### [facility] [address] [place] [address] Dr. Trevor Nichols Sodium [Moles/Vol] 140 mmol/L Normal 136-145 [facility] Comment on above: Performed By: #### H STROPN, BNP, BMP #### [facility] [address] [address] [address] Trevor Nichols Urea nitrogen [Mass/Vol] 22.0 mg/dL Critically high 7.0-18.0 [facility] [place] [facility] Comment on above: Performed By: #### H STROPN, BNP, BMP #### [facility] [address] [address] [address] Trevor Nichols Urea nitrogen/Creatinine [Mass ratio] 16.3 mg/mg Normal [facility] [place] [facility] Comment on above: Performed By: #### H STROKALEN, BNP, BMP #### [facility] [address] [place] [address] Dr. Trevor Nichols TSHon 02-05-2022 TSH 3.360 uIU/mL Normal 0.358-3.740 [facility] Comment on above: Performed By: #### H STROPN, BNP, BMP #### [facility] [address] [place] [address] Dr. Trevor Nichols XR CHEST 2 Von [...] by: ALLAN FLOREZ Date: 2022-02-05 17:03 Normal [facility] [place] [facility] XR BONE SURVEYon 09-25-2021 XR BONE SURVEY [...] SHAY BERNSTEIN Date: 2021-09-25 07:30 Normal [facility] PROTEIN ELECTROPHERESISon Albumin [Mass/Vol] 3.2 g/dL Normal 2.9-4.4 [facility] Comment on above: Performed By: #### P RTELEC ####[facility] [address] [address]DrJeffery Nichols Albumin/Globulin [Mass ratio] 1.1 {ratio} Normal 0.7-1.7 [facility] [place] [facility] Comment on above: Performed By: #### P RTELEC ####[facility] [address] [address]DrJeffery Nichols Wavrm-4-Hkmfwkgr 0.3 g/dL Normal 0.0-0.4 [facility] Comment on above: Performed By: #### P RTELEC ####[facility] [address] [address]Dr. Trevor Nichols Yhket-6-Lhpipybw 0.8 g/dL Normal 0.4-1.0 [facility] Comment on above: Performed By: #### P RTELEC ####[facility] [address] [place], [place] [address]Dr. Trevor Nichols Beta Globulin 1.0 g/dL Normal 0.7-1.3 [facility] Comment on above: Performed By: #### P RTELEC ####[facility] [address] [place], [place] [address]Dr. Trevor Nichols Gamma Globulin 0.8 g/dL Normal 0.4-1.8 [facility] Comment on above: Performed By: #### P RTELEC ####[facility] [address] [place], [place] [address]Dr. Trevor Nichols Globulin (S) [Mass/Vol] 2.9 g/dL Normal 2.2-3.9 [facility] Comment on above: Performed By: #### P RTELEC ####[facility] [address] [place], [place] [address]Dr. Trevor Nichols M-Jorge 0.1 g/dL Critically high Not Observed [facility] Comment on above: Performed By: #### P RTELEC ####[facility] [address] [place], [place] [address]DrJeffery Nichols PDF . Normal [facility] Comment on above: Performed By: #### P RTELEC ####[facility] [address] [place], [place] [address]DrJeffery Nichols Please note: Comment Normal [facility] [place] [facility] Comment on above: Result Comment: Prot ein electrophoresis scan will follow via computer, mail, or electrophysiologist delivery. Performed By: #### P RTELEC ####[facility] [address] [place], [place] [address]DrJeffery Nichols Protein [Mass/Vol] 6.1 g/dL Normal 6.0-8.5 [facility] Comment on above: Performed By: #### P RTELEC ####[facility] [address] [address]Dr. Trevor Nichols PROF CHEM 8 (BAS METB)on Anion gap [Moles/Vol] 16.3 mmol/L Normal [facility] Comment on above: Performed By: #### H STROPN, BNP, BMP #### [facility] [address] [address] [address] Trevor Nichols Calcium [Mass/Vol] 9.1 mg/dL Normal 8.4-10.2 [facility] Comment on above: Performed By: #### H STROPN, BNP, BMP #### [facility] [address] [place] [address] Dr. Trevor Nichols Chloride [Moles/Vol] 104 mmol/L Normal 98-107 [facility] Comment on above: Performed By: #### H STROPN, BNP, BMP #### [facility] [address] [address] [address] Trevor Nichols CO2 [Moles/Vol] 23.3 mmol/L Normal 22.0-30.0 [facility] Comment on above: Performed By: #### H STROPN, BNP, BMP #### [facility] [address] [address] [address] Trevor Nichols Creatinine [Mass/Vol] 1.28 mg/dL Critically high 0.66-1.25 [facility] Comment on above: Performed By: #### H STROPN, BNP, BMP #### [facility] [address] [address] [address] Trevor Nichols EGFR-AF LIBERIAN >60 Normal >=60 [facility] Comment on above: Performed By: #### H STROPN, BNP, BMP #### [facility] [address] [address] [address] Trevor Nichols EGFR-NON AF LIBERIAN 55 mL/min/1.73m2 Critically low >=60 [facility] Comment on above: Performed By: #### H STROPN, BNP, BMP #### [facility] [address] [address] [address] Trevor Nichols Glucose [Mass/Vol] 98 mg/dL Normal 74-106 [facility] Comment on above: Performed By: #### H STROPN, BNP, BMP #### [facility] [address] [address] [address] Trevor Nichols Potassium [Moles/Vol] 3.6 mmol/L Normal 3.4-5.0 [facility] Comment on above: Performed By: #### H STROPN, BNP, BMP #### [facility] [address] [address] [address] Trevor Nichols Sodium [Moles/Vol] 140 mmol/L Normal 137-145 [facility] Comment on above: Performed By: #### H STROPN, BNP, BMP #### [facility] [address] [address] [address] Trevor iNchols Urea nitrogen [Mass/Vol] 25.0 mg/dL Critically high 9.0-20.0 [facility] Comment on above: Performed By: #### H STROPN, BNP, BMP #### [facility] [address] [address] [address] Trevor Nichols Urea nitrogen/Creatinine [Mass ratio] 19.5 mg/mg Normal [facility] Comment on above: Performed By: #### H STROPN, BNP, BMP #### [facility] [address] [address] [address] Trevor Nichols XR MODIFIED BARIUM SWALLOWon [...] by: SHAY BERNSTEIN Date: 2021-09-05 10:40 Normal [facility] CULTURE SPUTUMon 08-01-2021 CULTURE SPUTUM Isolate 1 [...] F Trimethoprim/Sulfamethoxa zole <=20 S F Normal [facility] Comment on above: Performed By: #### H STROPN, BNP, BMP #### [facility] [address] [address] [address] Trevor Nichols SPUTUM GRAM STAINon 07-30-20 21 COMMENTS Normal [facility] Comment on above: Performed By: #### S PUTGS ####[facility] [address] [address]Dr[address] Trevor Nichols DIPHTHEROIDS Normal [facility] Comment on above: Performed By: #### S PUTGS ####[facility] [address] [address]Dr. Trevor Nichols EPITHELIALS >25 Normal [facility] Comment on above: Performed By: #### S PUTGS ####[facility] [address] [address]Dr. Trevor Nichols FUNGAL ELEMENTS Normal [facility] Comment on above: Performed By: #### S PUTGS ####[facility] [address] [id number][address] Trevor Nichols GRAM NEG BACILLI RARE Normal [facility] Comment on above: Performed By: #### S PUTGS ####[facility] [address] [place], [place] [address]Zd. Trevor Nichols GRAM NEG DIPPLOCOCCI Normal [facility] Comment on above: Performed By: #### S PUTGS ####[facility] [address] [place], [place] [address]Rm. Trevor Nichols GRAM POS BACILLI MANY Normal [facility] Comment on above: Performed By: #### S PUTGS ####[facility] [address] [id number]. Trevor Simone GRAM POSITIVE COCCI MANY Normal [facility] Comment on above: Performed By: #### S PUTGS ####[facility] [address] [address]Dr[address] Trevor Simone WBC (Bld) [#/Vol] 10*3/uL Normal [facility] Comment on above: Performed By: #### S PUTGS ####[facility] [address] [address]Dr[address] Trevor Nichols ECHOCARDIO M/2D COMPLETEon 1 09-24-2020 ECHOCARDIO M/2D COMPLETE Patient: CHIKI JUAREZ Exam Date: 07/24/2021 : 1945 Gender:M Ordering : [employer] Admission #: [id number] Family : DR WILL SHERWOOD . Order #: [id number] CLICK HERE TO VIEW EXAM ECHOCARDIOGRAM REPORT [...] M.D. on 07/24/2021 at 20:08 Normal [facility] CBC W MANUAL DIFFon 10-22-20 21 ATYPICAL LYMPH # Normal [facility] Comment on above: Performed By: #### H STROPN, BNP, BMP #### [facility] [address] [place] [address] Dr. Trevor Nichols ATYPICAL LYMPH % Normal [facility] Comment on above: Performed By: #### H STROPN, BNP, BMP #### [facility] [address] [place] [address] Dr. Trevor Nichols BAND # 0.1 103/ul Normal 0.0-0.3 [facility] Comment on above: Performed By: #### H STROPN, BNP, BMP #### [facility] [address] [place] [address] Dr. Trevor Nichols BAND % 2 % Normal 0-5 [facility] Comment on above: Performed By: #### H STROPN, BNP, BMP #### [facility] [address] [place] [address] Dr. Trevor Nichols BASOM # 0.00 103/ul Normal 0.00-0.10 [facility] [place] [facility] Comment on above: Performed By: #### H STROPN, BNP, BMP #### [facility] [address] [place] [address] Dr. Trevor Nichols BASOM % 0.0 % Critically low 0.2-2.0 [facility] Comment on above: Performed By: #### H STROPN, BNP, BMP #### [facility] [address] [place] [address] Dr. Trevor Nichols BLAST # Normal [facility] [place] [facility] Comment on above: Performed By: #### H STROPN, BNP, BMP #### [facility] [facility] [address] [place] [address] Dr. Trevor Nichols BLAST % Normal [facility] Comment on above: Performed By: #### H STROPN, BNP, BMP #### [facility] [address] [place] [address] Dr. Trevor Nichols CORRECTED WBC Normal 4.0-11.0 [facility] Comment on above: Performed By: #### H STROPN, BNP, BMP #### [facility] [address] [place] [address] Dr. Trevor Nichols EOS # 0.06 103/ul Normal 0.00-0.70 [facility] Comment on above: Performed By: #### H STROPN, BNP, BMP #### [facility] [address] [place] [address] Dr. Trevor Nichols EOS% 1.0 % Normal 0.9-7.0 [facility] Comment on above: Performed By: #### H STROPN, BNP, BMP #### [facility] [address] [place] [address] Dr. Trevor Nichols HCT 31.6 % Critically low 42.0-54.0 [facility] Comment on above: Performed By: #### H STROPN, BNP, BMP #### [facility] [address] [place] [address] Dr. Trevor Nichols HGB 9.7 g/dl Critically low 14.0-18.0 [facility] Comment on above: Performed By: #### H STROPN, BNP, BMP #### [facility] [address] [address] [address] Trevor Nichols LYMPHM # 0.46 103/ul Critically low 1.20-3.80 [facility] Comment on above: Performed By: #### H STROPN, BNP, BMP #### [facility] [address] [address] [address] Trevor Nichols LYMPHM% 8.0 % Critically low 20.5-60.0 [facility] Comment on above: Performed By: #### H STROPN, BNP, BMP #### [facility] [address] [address] [address] Trevor Nichols MACROCYTOSIS 1+ Normal [facility] Comment on above: Performed By: #### H STROPN, BNP, BMP #### [facility] [address] [address] [address] Trevor Nichols MCH 33.6 pg Normal 25.9-34.0 [facility] Comment on above: Performed By: #### H STROPN, BNP, BMP #### [facility] [address] [address] [address] Trevor Nichols MCHC 30.7 g/dl Normal 29.9-35.2 [facility] Comment on above: Performed By: #### H STROPN, BNP, BMP #### [facility] [address] [address] [address] Trevor Nichols MCV 109.3 fL Critically high 80.0-94.0 [facility] Comment on above: Performed By: #### H STROPN, BNP, BMP #### [facility] [address] [address] [address] Trevor Nichols METAMYELOCYTE # 0.1 103/ul Normal [facility] Comment on above: Performed By: #### H STROPN, BNP, BMP #### [facility] [address] [address] [address] Trevor Nichols METAMYELOCYTE % 2 % Normal [facility] Comment on above: Performed By: #### H STROPN, BNP, BMP #### [facility] [address] [address] [address] Trevor Nichols MONOM# 2.22 103/ul Critically high 0.30-0.80 [facility] Comment on above: Performed By: #### H STROPN, BNP, BMP #### [facility] [address] [address] [address] Trevor Nichols MONOM% 39.0 % Critically high 1.7-12.0 [facility] Comment on above: Performed By: #### H STROPN, BNP, BMP #### [facility] [address] [place] [address] Dr. Trevor Nichols MPV 9.4 fL Critically low 9.5-13.5 [facility] Comment on above: Performed By: #### H STROPN, BNP, BMP #### [facility] [address] [place] [address] Dr. Trevor Nichols MYELOCYTE # 0.3 103/ul Normal [facility] Comment on above: Performed By: #### H STROPN, BNP, BMP #### [facility] [address] [place] [address] Dr. Trevor Nichols MYELOCYTE % 6 % Normal [facility] Comment on above: Performed By: #### H STROPN, BNP, BMP #### [facility] [address] [address] [address] Trevor Nichols NRBC Normal [facility] Comment on above: Performed By: #### H STROPN, BNP, BMP #### [facility] [address] [address] [address] Trevor Nichols PLT 202 103/ul Normal 150-450 [facility] Comment on above: Performed By: #### H STROPN, BNP, BMP #### [facility] [address] [place] [address] Dr. Trevor Nichols RBC 2.89 106/ul Critically low 4.70-6.10 [facility] Comment on above: Performed By: #### H STROPN, BNP, BMP #### [facility] [address] [address] [address] Trevor Nichols RDW 15.4 % Critically high 11.0-15.0 [facility] Comment on above: Performed By: #### H STROPN, BNP, BMP #### [facility] [address] [address] [address] Trevor Nichols SEG # 2.39 103/ul Normal 1.40-6.50 [facility] Comment on above: Performed By: #### H STROPN, BNP, BMP #### [facility] [address] [address] [address] Trevor Nichols SEG % 42.0 % Critically low 43.0-75.0 [facility] Comment on above: Performed By: #### H STROPN, BNP, BMP #### [facility] [address] [address] [address] Trevor Nichols WBC 5.7 103/ul Normal 4.0-11.0 [facility] Comment on above: Performed By: #### H STROPN, BNP, BMP #### [facility] [address] [address] [address] Trevor Nichols PROF CHEM 8 (BAS METB)on Anion gap [Moles/Vol] 13.1 mmol/L Normal [facility] Comment on above: Performed By: #### B MP ####[facility] [address] [address]Dr. Trevor Nichols Calcium [Mass/Vol] 8.8 mg/dL Normal 8.4-10.2 [facility] Comment on above: Performed By: #### B MP ####[facility] [address] [address]Dr. Trevor Nichols Chloride [Moles/Vol] 104 mmol/L Normal 98-107 [facility] Comment on above: Performed By: #### B MP ####[facility] [address] [address]Dr. Trevor Nichols CO2 [Moles/Vol] 24.1 mmol/L Normal 22.0-30.0 [facility] Comment on above: Performed By: #### B MP ####[facility] [address] [address]Dr. Trevor Nichols Creatinine [Mass/Vol] 1.26 mg/dL Critically high 0.66-1.25 [facility] Comment on above: Performed By: #### B MP ####[facility] [address] [address]Dr. Vivifrancie Simone EGFR-AF LIBERIAN >60 Normal >=60 [facility] Comment on above: Performed By: #### B MP ####[facility] [address] [address]Dr. Trevor Nichols EGFR-NON AF LIBERIAN 56 mL/min/1.73m2 Critically low >=60 [facility] Comment on above: Performed By: #### B MP ####[facility] [address] [place], [place] [address]Dr. Trevor Nichols Glucose [Mass/Vol] 98 mg/dL Normal 74-106 [facility] Comment on above: Performed By: #### B MP ####[facility] [address] [address]Dr. Trevor Nichols Potassium [Moles/Vol] 4.2 mmol/L Normal 3.4-5.0 [facility] Comment on above: Performed By: #### B MP ####[facility] [address] [address]Dr. Trevor Nichols Sodium [Moles/Vol] 137 mmol/L Normal 137-145 [facility] Comment on above: Performed By: #### B MP ####[facility] [address] [address]Dr. Trevor Nichols Urea nitrogen [Mass/Vol] 20.0 mg/dL Normal 9.0-20.0 [facility] Comment on above: Performed By: #### B MP ####[facility] [address] [address]Dr. Trevor Nichols Urea nitrogen/Creatinine [Mass ratio] 15.9 mg/mg Normal [facility] Comment on above: Performed By: #### B MP ####[facility] [address] [address]Dr. Trevor Simone CBC AUTO DIFFon 05-16-2021 BASO # 0.0 103/ul Normal 0.0-0.1 [facility] Comment on above: Performed By: #### C BC ####[facility] [address] [place], [place] [address]Dr. Trevor Nichols Basophils/100 WBC (Bld) 0.2 % Normal 0.2-2.0 [facility] Comment on above: Performed By: #### C BC ####[facility] [address] [place], [place] [address]Dr. Trevor Nichols EO # 0.0 103/ul Normal 0.0-0.7 [facility] Comment on above: Performed By: #### C BC ####[facility] [address] [place], [place] [address]Dr. Trevor Nichols Eosinophils/100 WBC (Bld) 0.0 % Critically low 0.9-7.0 [facility] Comment on above: Performed By: #### C BC ####[facility] [address] [place], [place] [address]Dr. Trevor Nichols Erythrocyte distribution width (RBC) [Ratio] 15.1 % Critically high 11.0-15.0 [facility] Comment on above: Performed By: #### C BC ####[facility] [address] [place], [place] [address]Dr. Trevor Nichols Hematocrit (Bld) [Volume fraction] 32.9 % Critically low 42.0-54.0 [facility] Comment on above: Performed By: #### C BC ####[facility] [address] [place], [place] [address]Dr. Trevor Nichols Hemoglobin (Bld) [Mass/Vol] 10.5 g/dL Critically low 14.0-18.0 [facility] Comment on above: Performed By: #### C BC ####[facility] [address] [place], [place] [address]Dr. Trevor Nichols IG # 0.29 10e3/ul Critically high 0.00-0.03 [facility] Comment on above: Performed By: #### C BC ####[facility] [address] [address]Dr. Trevor Nichols IG % 6.5 % Critically high 0.0-0.5 [facility] Comment on above: Performed By: #### C BC ####[facility] [address] [address]DrJeffery Nichols LYMPH # 0.2 103/ul Critically low 1.2-3.8 [facility] Comment on above: Performed By: #### C BC ####[facility] [address] [address]DrJeffery Nichols Lymphocytes/100 WBC (Bld) 5.4 % Critically low 20.5-60.0 [facility] Comment on above: Performed By: #### C BC ####[facility] [address] [address]Dr. Trevor Nichols MANUAL DIFF REQ NO Normal [facility] Comment on above: Performed By: #### C BC ####[facility] [address] [address]Dr. Trevor Nichols MCH (RBC) [Entitic mass] 33.8 pg Normal 25.9-34.0 [facility] Comment on above: Performed By: #### C BC ####[facility] [address] [address]Dr. Trevor Nichols MCHC (RBC) [Mass/Vol] 31.9 g/dL Normal 29.9-35.2 [facility] Comment on above: Performed By: #### C BC ####[facility] [address] [address]DrJeffery Nichols MCV (RBC) [Entitic vol] 105.8 fL Critically high 80.0-94.0 [facility] Comment on above: Performed By: #### C BC ####[facility] [address] [place], [place] [address]DrJeffery Nichols MONO # 0.3 103/ul Normal 0.3-0.8 [facility] Comment on above: Performed By: #### C BC ####[facility] [address] [address]Dr. Trevor Nichols Monocytes/100 WBC (Bld) 7.6 % Normal 1.7-12.0 [facility] Comment on above: Performed By: #### C BC ####[facility] [address] [address]Dr. Trevor Nichols NEUT # 3.6 103/ul Normal 1.4-6.5 [facility] Comment on above: Performed By: #### C BC ####[facility] [address] [address]Dr. Trevor Nichols Neutrophils/100 WBC (Bld) 80.3 % Critically high 43.0-75.0 [facility] Comment on above: Performed By: #### C BC ####[facility] [address] [place], [place] [address]Dr. Trevor Nichols Platelet mean volume (Bld) [Entitic vol] 10.2 fL Normal 9.5-13.5 [facility] Comment on above: Performed By: #### C BC ####[facility] [address] [address]Dr. Trevor Nichols PLT 192 103/ul Normal 150-450 [facility] Comment on above: Performed By: #### C BC ####[facility] [address] [address]Dr. Trevor Nichols RBC 3.11 106/ul Critically low 4.70-6.10 [facility] Comment on above: Performed By: #### C BC ####[facility] [address] [address]Dr. Trevor Nichols WBC 4.5 103/ul Normal 4.0-11.0 [facility] Comment on above: Performed By: #### C BC ####[facility] [address] [address]Dr[address] Trevor Nichols CT STROKE HEAD WOon 05-16-20 [...] by: SHAY BERNSTEIN Date: 2021-05-16 14:45 Normal [facility] CTA NECK WO W CONon 05-16-20 CTA [...] SHAY BERNSTEIN Date: 2021-05-16 16:53 Normal [facility] IRON AND TIBCon 05-16-2021 % SATURATION 16.2 % Normal [facility] Comment on above: Performed By: #### F ETIBC, B12FOL #### [facility] [address] [place] [address] Dr. Trevor Nichols Iron [Mass/Vol] 32.0 ug/dL Critically low 49.0-181.0 [facility] Comment on above: Performed By: #### F ETIBC, B12FOL #### [facility] [address] [place] [address] Dr. Trevor Nichols TIBC DIRECT 198.0 ug/dL Critically low 261.0-497.0 [facility] Comment on above: Performed By: #### F ETIBC, B12FOL #### [facility] [address] [place] [address] Dr. Trevor Nichols PROF CHEM 8 (BAS METB)on Anion gap [Moles/Vol] 14.9 mmol/L Normal [facility] Comment on above: Performed By: #### B MP #### [facility] [address] [place] [address] Dr. Trevor Nichols Calcium [Mass/Vol] 9.2 mg/dL Normal 8.4-10.2 [facility] Comment on above: Performed By: #### B MP #### [facility] [address] [place] [address] Dr. Trevor Nichols Chloride [Moles/Vol] 105 mmol/L Normal 98-107 [facility] Comment on above: Performed By: #### B MP #### [facility] [address] [address] [address] Trevor Nichols CO2 [Moles/Vol] 21.6 mmol/L Critically low 22.0-30.0 [facility] Comment on above: Performed By: #### B MP #### [facility] [address] [address] [address] Trevor Nichols Creatinine [Mass/Vol] 1.36 mg/dL Critically high 0.66-1.25 [facility] Comment on above: Performed By: #### B MP #### [facility] [address] [place] [address] Dr. Trevor Nichols EGFR-AF LIBERIAN >60 Normal >=60 [facility] Comment on above: Performed By: #### B MP #### [facility] [address] [place] [address] Dr. Trevor Nichols EGFR-NON AF LIBERIAN 51 mL/min/1.73m2 Critically low >=60 [facility] Comment on above: Performed By: #### B MP #### [facility] [address] [place] [address] Dr. Trevor Nichols Glucose [Mass/Vol] 206 mg/dL Critically high 74-106 [facility] Comment on above: Performed By: #### B MP #### [facility] [address] [place] [address] Dr. Trevor Nichols Potassium [Moles/Vol] 4.5 mmol/L Normal 3.4-5.0 [facility] Comment on above: Performed By: #### B MP #### [facility] [address] [address] [address] Trevor Nichols Sodium [Moles/Vol] 137 mmol/L Normal 137-145 [facility] Comment on above: Performed By: #### B MP #### [facility] [address] [address] [address] Trevor Nichols Urea nitrogen [Mass/Vol] 26.0 mg/dL Critically high 9.0-20.0 [facility] Comment on above: Performed By: #### B MP #### [facility] [address] [place] [address] Dr. Trevor Nichols Urea nitrogen/Creatinine [Mass ratio] 19.1 mg/mg Normal [facility] Comment on above: Performed By: #### B MP #### [facility] [address] [place] [address] Dr. Trevor Nichols VIT B12 AND FOLATEon 021 Cobalamin (Vitamin B12) [Mass/Vol] pg/mL Critically high 239.0-931.0 [facility] Comment on above: Performed By: #### F ETIBC, B12FOL #### [facility] [address] [place] [address] Dr. Trevor Nichols FOLATE 15.40 ng/mL Normal >=2.76 [facility] Comment on above: Performed By: #### F ETIBC, B12FOL #### [facility] [address] [place] [address] Dr. Trevor Nichols BNPon 05-15-2021 Natriuretic peptide B (Bld) [Mass/Vol] 379.0 pg/mL Normal <=900.0 [facility] Comment on above: Performed By: #### H STROPN, BNP, BMP #### [facility] [address] [place] [address] Dr. Trevor Nichols CBC W MANUAL DIFFon 05-15-20 21 ATYPICAL LYMPH # Normal [facility] Comment on above: Performed By: #### H STROPN, BNP, BMP #### [facility] [address] [place] [address] Dr. Trevor Nichols ATYPICAL LYMPH % Normal [facility] Comment on above: Performed By: #### H STROPN, BNP, BMP #### [facility] [address] [place] [address] Dr. Trevor Nichols BAND # 0.0 103/ul Normal 0.0-0.3 [facility] Comment on above: Performed By: #### H STROPN, BNP, BMP #### [facility] [address] [address] [address] Trevor Nichols BAND % 1 % Normal 0-5 [facility] Comment on above: Performed By: #### H STROPN, BNP, BMP #### [facility] [address] [address] [address] Trevor Nichols BASOM # 0.00 103/ul Normal 0.00-0.10 [facility] Comment on above: Performed By: #### H STROPN, BNP, BMP #### [facility] [address] [place] [address] Dr. Trevor Nichols BASOM % 0.0 % Critically low 0.2-2.0 [facility] Comment on above: Performed By: #### H STROPN, BNP, BMP #### [facility] [address] [place] [address] Dr. Trevor Nichols BLAST # Normal [facility] Comment on above: Performed By: #### H STROPN, BNP, BMP #### [facility] [address] [place] [address] Dr. Trevor Nichols BLAST % Normal [facility] Comment on above: Performed By: #### H STROPN, BNP, BMP #### [facility] [address] [place] [address] Dr. Trevor Nichols BRENDA CELLS SLIGHT Normal [facility] Comment on above: Performed By: #### H STROPN, BNP, BMP #### [facility] [address] [place] [address] Dr. Trevor Nichols CORRECTED WBC Normal 4.0-11.0 [facility] Comment on above: Performed By: #### H STROPN, BNP, BMP #### [facility] [address] [place] [address] Dr. Trevor Nichols EOS # 0.05 103/ul Normal 0.00-0.70 [facility] Comment on above: Performed By: #### H STROPN, BNP, BMP #### [facility] [address] [place] [address] Dr. Trevor Nichols EOS% 1.0 % Normal 0.9-7.0 [facility] Comment on above: Performed By: #### H STROPN, BNP, BMP #### [facility] [address] [address] [address] Trevor Nichols HCT 32.5 % Critically low 42.0-54.0 [facility] Comment on above: Performed By: #### H STROPN, BNP, BMP #### [facility] [address] [address] [address] Trevor Nichols HGB 10.5 g/dl Critically low 14.0-18.0 [facility] Comment on above: Performed By: #### H STROPN, BNP, BMP #### [facility] [address] [address] [address] Trevor Nichols HYPOCHROMASIA 2+ Normal [facility] Comment on above: Performed By: #### H STROPN, BNP, BMP #### [facility] [address] [address] [address] Trevor Nichols LYMPHM # 1.03 103/ul Critically low 1.20-3.80 [facility] Comment on above: Performed By: #### H STROPN, BNP, BMP #### [facility] [address] [address] [address] Trevor Nichols LYMPHM% 22.0 % Normal 20.5-60.0 [facility] Comment on above: Performed By: #### H STROPN, BNP, BMP #### [facility] [address] [address] [address] Trevor Nichols MACROCYTOSIS 2+ Normal [facility] Comment on above: Performed By: #### H STROPN, BNP, BMP #### [facility] [address] [address] [address] Trevor Nichols MCH 34.5 pg Critically high 25.9-34.0 [facility] Comment on above: Performed By: #### H STROPN, BNP, BMP #### [facility] [address] [address] [address] Trevor Nichols MCHC 32.3 g/dl Normal 29.9-35.2 [facility] Comment on above: Performed By: #### H STROPN, BNP, BMP #### [facility] [address] [address] [address] Trevor Nichols MCV 106.9 fL Critically high 80.0-94.0 [facility] Comment on above: Performed By: #### H STROPN, BNP, BMP #### [facility] [address] [address] [address] Trevor Nichols METAMYELOCYTE # Normal [facility] Comment on above: Performed By: #### H STROPN, BNP, BMP #### [facility] [address] [address] [address] Trevor Nichols METAMYELOCYTE % Normal [facility] Comment on above: Performed By: #### H STROPN, BNP, BMP #### [facility] [address] [place] [address] Dr. Trevor Nichols MONOM# 1.74 103/ul Critically high 0.30-0.80 [facility] Comment on above: Performed By: #### H STROPN, BNP, BMP #### [facility] [address] [place] [address] Dr. Trevor Nichols MONOM% 37.0 % Critically high 1.7-12.0 [facility] Comment on above: Performed By: #### H STROPN, BNP, BMP #### [facility] [address] [place] [address] Dr. Trevor Nichols MPV 10.8 fL Normal 9.5-13.5 [facility] Comment on above: Performed By: #### H STROPN, BNP, BMP #### [facility] [address] [place] [address] Dr. Trevor Nichols MYELOCYTE # Normal [facility] Comment on above: Performed By: #### H STROPN, BNP, BMP #### [facility] [facility] [address] [place] [address] Dr. Trevor Nichols MYELOCYTE % Normal [facility] Comment on above: Performed By: #### H STROPN, BNP, BMP #### [facility] [address] [place] [address] Dr. Trevor Nichols NRBC Normal [facility] [place] [facility] Comment on above: Performed By: #### H STROPN, BNP, BMP #### [facility] [address] [address] [address] Trevor Nichols PLT 222 103/ul Normal 150-450 [facility] [place] [facility] Comment on above: Performed By: #### H STROPN, BNP, BMP #### [facility] [address] [address] [address] Trevor Nichols POIKILOCYTOSIS 2+ Normal [facility] Comment on above: Performed By: #### H STROPN, BNP, BMP #### [facility] [address] [address] [address] Trevor Nichols RBC 3.04 106/ul Critically low 4.70-6.10 [facility] Comment on above: Performed By: #### H STROPN, BNP, BMP #### [facility] [address] [place] [address] Dr. Trevor Nichols RDW 15.6 % Critically high 11.0-15.0 [facility] Comment on above: Performed By: #### H STROPN, BNP, BMP #### [facility] [address] [address] [address] Trevor Nichols SEG # 1.83 103/ul Normal 1.40-6.50 [facility] [place] [facility] Comment on above: Performed By: #### H STROPN, BNP, BMP #### [facility] [address] [address] [address] Trevor Nichols SEG % 39.0 % Critically low 43.0-75.0 [facility] Comment on above: Performed By: #### H STROPN, BNP, BMP #### [facility] [address] [address] [address] Trevor Nichols TARGET CELLS 1+ Normal [facility] [place] [facility] Comment on above: Performed By: #### H STROPN, BNP, BMP #### [facility] [address] [address] [address] Trevor Nichols TEAR DROP CELLS SLIGHT Normal [facility] Comment on above: Performed By: #### H STROPN, BNP, BMP #### [facility] [address] [place], [place] [address] Dr. Trevor Nichols WBC 4.7 103/ul Normal 4.0-11.0 [facility] [place] [facility] Comment on above: Performed By: #### H STROPN, BNP, BMP #### [facility] [address] [place], [place] [address] Dr. Trevor Nichols CTA CHEST WO W [...] RAY SAWANT Date: 2021-05-15 11:15 Normal [facility] CULTURE BLOODon 05-15-2021 Microscopic examination of blood, culture Culture Observations: No growth at 5 days. Normal [facility] [place] [facility] Comment on above: Performed By: #### H STROPN, BNP, BMP #### [facility] [address] [place], [place] [address] Dr. Trevor Nichols Covid-19 PCR (CVDTBH)on 04-18 SARS-CoV-2 (COVID-19) RNA DEVIN+probe Ql (Unsp spec) Not detected Normal NOT DETECTED [facility] Comment on above: Result Comment: When diagnostic testing is negative, the possibility of a false negative should be considered in the context of a patient's recent exposures and the presence of clinical signs and symptoms consistent with SARS-CoV-2. This test is not yet approved or cleared by the [place] Food and Drug Administration (FDA). This test was developed by [employer], [place], [place]. The performance characteristics of this test were validated by [facility]. The results are not intended to be used as the sole means for clinical diagnosis or patient management decisions. [facility] is authorized under Clinical Laboratory Improvement Amendments (CLIA) to perform high- complexity testing. Performed By: #### H STROPN, BNP, BMP #### [facility] [address] [place], [place] [address] Dr. Trevor Nichols FREE T3on 05-15-2021 FREE T3 1.66 pg/mlL Critically low 2.77-5.27 [facility] Comment on above: Performed By: #### T SH, FT3 ####[facility] [address] [address]Dr. Trevor Nichols FREE T4on 05-15-2021 Free T4 [Mass/Vol] 1.06 ng/dL Normal 0.78-2.19 [facility] Comment on above: Performed By: #### F T4 ####[facility] [address] [place], [place] [address]Dr. Trevor Nichols LACTATE/LACTIC ACIDon 2020 Lactate [Moles/Vol] 1.2 mmol/L Normal 0.7-2.0 [facility] Comment on above: Performed By: #### L ACT ####[facility] [address] [address]Dr. Trevor Nichols Lactate [Moles/Vol] 1.5 mmol/L Normal 0.7-2.0 [facility] Comment on above: Performed By: #### L ACT ####[facility] [address] [address]Dr. Trevor Nichols PROF CHEM 8 (BAS METB)on Anion gap [Moles/Vol] 12.5 mmol/L Normal [facility] [place] [facility] Comment on above: Performed By: #### H STROPN, BNP, BMP #### [facility] [address] [address] [address] Trevor Nichols Calcium [Mass/Vol] 8.4 mg/dL Normal 8.4-10.2 [facility] Comment on above: Performed By: #### H STROPN, BNP, BMP #### [facility] [address] [address] [address] Trevor Nichols Chloride [Moles/Vol] 106 mmol/L Normal 98-107 [facility] [place] [facility] Comment on above: Performed By: #### H STROPN, BNP, BMP #### [facility] [address] [address] [address] Trevor Nichols CO2 [Moles/Vol] 24.8 mmol/L Normal 22.0-30.0 [facility] Comment on above: Performed By: #### H STROPN, BNP, BMP #### [facility] [address] [address] [address] Trevor Nichols Creatinine [Mass/Vol] 1.37 mg/dL Critically high 0.66-1.25 [facility] [place] [facility] Comment on above: Performed By: #### H STROPN, BNP, BMP #### [facility] [address] [address] [address] Trevor Nichols EGFR-AF LIBERIAN >60 Normal >=60 [facility] Comment on above: Performed By: #### H STROPN, BNP, BMP #### [facility] [address] [address] [address] Trevor Nichols EGFR-NON AF LIBERIAN 51 mL/min/1.73m2 Critically low >=60 [facility] [place] [facility] Comment on above: Performed By: #### H STROPN, BNP, BMP #### [facility] [address] [address] [address] Trevor Nichols Glucose [Mass/Vol] 114 mg/dL Critically high 74-106 T [facility] Comment on above: Performed By: #### H STROPN, BNP, BMP #### [facility] [address] [place] [address] Dr. Trevor Nichols Potassium [Moles/Vol] 4.4 mmol/L Normal 3.4-5.0 [facility] [place] [facility] Comment on above: Performed By: #### H STROPN, BNP, BMP #### [facility] [address] [place] [address] Dr. Trevor Nichols Sodium [Moles/Vol] 139 mmol/L Normal 137-145 [facility] Comment on above: Performed By: #### H STROPN, BNP, BMP #### [facility] [address] [place] [address] Dr. Trevor Nichols Urea nitrogen [Mass/Vol] 20.0 mg/dL Normal 9.0-20.0 [facility] [place] [facility] Comment on above: Performed By: #### H STROPN, BNP, BMP #### [facility] [address] [place] [address] Dr. Trevor Nichols Urea nitrogen/Creatinine [Mass ratio] 14.6 mg/mg Normal [facility] [place] [facility] Comment on above: Performed By: #### H STROPN, BNP, BMP #### [facility] [address] [place] [address] Dr. Trevor Nichols TROPONIN, HIGH SENSITIVITYon 05-15-2021 HSTROP 7.1 pg/mL Normal 4.0-42.2 [facility] [place] [facility] Comment on above: Result Comment: CUT- OFF POINTS HAVE BEEN ESTABLISHED BASED ON THE FOURTH UNIVERSAL DEFINITIONS OF MYOCARDIAL INFARCTION. THE UPPER REFERENCE LIMIT (URL) OF TROPONIN, DEFINED THE 99TH PERCENTILE OF cTnI DISTRIBUTION IN A REFERENCE POPULATION, HAS BEEN CONFIRMED THE DECISION THRESHOLD FOR ID DIAGNOSIS. Performed By: #### H STROPN, BNP, BMP #### [facility] [address] [place] [address] Dr. Trevor Nichols TSHon 05-15-2021 TSH 1.972 uIU/mL Normal 0.470-4.680 [facility] Comment on above: Performed By: #### T SH, FT3 ####[facility] [address] [address]Dr. Trevor Nichols TSH RANGE SEE BELOW Normal [facility] Comment on above: Result Comment: <0.3 4 UIU/ml HYPERTHYROID 0.34-5.60 UIU/ml EUTHYROID >5.60 UIU/ml HYPOTHYROID Performed By: #### T SH, FT3 ####[facility] [address] [address]Dr. Trevor Nichols D-DIMERon 05-14-2021 D-DIMER 0.76 mg/L FEU Critically high 0.19-0.50 [facility] Comment on above: Performed By: #### H STROPN, BNP, BMP #### [facility] [address] [address] [address] Trevor Nichols D-DIMER COMMENTS SEE BELOW Normal [facility] Comment on above: Result Comment: Incr [...] By: #### H STROPN, BNP, BMP #### [facility] [address] [address] [address] Trevor Nichols PROF CHEM 8 (BAS METB)on Anion gap [Moles/Vol] 12.0 mmol/L Normal [facility] [place] [facility] Comment on above: Performed By: #### H STROPN, BNP, BMP #### [facility] [address] [address] [address] Trevor Nichols Calcium [Mass/Vol] 8.5 mg/dL Normal 8.4-10.2 [facility] Comment on above: Performed By: #### H STROPN, BNP, BMP #### [facility] [address] [address] [address] Trevor Nichols Chloride [Moles/Vol] 106 mmol/L Normal 98-107 [facility] [place] [facility] Comment on above: Performed By: #### H STROPN, BNP, BMP #### [facility] [address] [address] [address] Trevor Nichols CO2 [Moles/Vol] 25.0 mmol/L Normal 22.0-30.0 [facility] Comment on above: Performed By: #### H STROPN, BNP, BMP #### [facility] [address] [address] [address] Trevor Nichols Creatinine [Mass/Vol] 1.61 mg/dL Critically high 0.66-1.25 [facility] [place] [facility] Comment on above: Performed By: #### H STROPN, BNP, BMP #### [facility] [address] [place] [address] Dr. Trevor Nichols EGFR-AF LIBERIAN 51 mL/min/1.73m2 Critically low >=60 [facility] [place] [facility] Comment on above: Performed By: #### H STROPN, BNP, BMP #### [facility] [address] [place] [address] Dr. Trevor Nichols EGFR-NON AF LIBERIAN 42 mL/min/1.73m2 Critically low >=60 [facility] [place] [facility] Comment on above: Performed By: #### H STROPN, BNP, BMP #### [facility] [address] [place] [address] Dr. Trevor Nichols Glucose [Mass/Vol] 115 mg/dL Critically high 74-106 [facility] Comment on above: Performed By: #### H STROPN, BNP, BMP #### [facility] [address] [place] [address] Dr. Trevor Nichols Potassium [Moles/Vol] 4.0 mmol/L Normal 3.4-5.0 [facility] [place] [facility] Comment on above: Performed By: #### H STROPN, BNP, BMP #### [facility] [address] [place] [address] Dr. Trevor Nichols Sodium [Moles/Vol] 139 mmol/L Normal 137-145 [facility] Comment on above: Performed By: #### H STROPN, BNP, BMP #### [facility] [address] [place], [place] [address] Dr[address] Trevor Nichols Urea nitrogen [Mass/Vol] 20.0 mg/dL Normal 9.0-20.0 [facility] [place] [facility] Comment on above: Performed By: #### H STROPN, BNP, BMP #### [facility] [address] [address] [address] Trevor Nichols Urea nitrogen/Creatinine [Mass ratio] 12.4 mg/mg Normal [facility] [place] [facility] Comment on above: Performed By: #### H STROPN, BNP, BMP #### [facility] [address] [address] [address] Trevor Nichols PROF CHEM 8 (BAS METB)on Anion gap [Moles/Vol] 19.5 mmol/L Normal [facility] [place] [facility] Comment on above: Performed By: #### B MP ####[facility] [address] [address]Dr. Trevor Nichols Calcium [Mass/Vol] 9.1 mg/dL Normal 8.4-10.2 [facility] Comment on above: Performed By: #### B MP ####[facility] [address] [address]Dr. Trevor Nichols Chloride [Moles/Vol] 104 mmol/L Normal 98-107 [facility] [place] [facility] Comment on above: Performed By: #### B MP ####[facility] [address] [address]Dr. Trevor Nichols CO2 [Moles/Vol] 19.6 mmol/L Critically low 22.0-30.0 [facility] Comment on above: Performed By: #### B MP ####[facility] [address] [address]DrJeffery Nichols Creatinine [Mass/Vol] 1.69 mg/dL Critically high 0.66-1.25 [facility] [place] [facility] Comment on above: Performed By: #### B MP ####[facility] [address] [address]DrJeffery Nichols EGFR-AF LIBERIAN 48 mL/min/1.73m2 Critically low >=60 [facility] [place] [facility] Comment on above: Performed By: #### B MP ####[facility] [address] [address]Dr. Trevor Nichols EGFR-NON AF LIBERIAN 40 mL/min/1.73m2 Critically low >=60 [facility] [place] [facility] Comment on above: Performed By: #### B MP ####[facility] [address] [address]Dr. Trevor Nichols Glucose [Mass/Vol] 95 mg/dL Normal 74-106 [facility] Comment on above: Performed By: #### B MP ####[facility] [address] [place], [place] [address]Dr. Trevor Nichols Potassium [Moles/Vol] 5.4 mmol/L Critically high 3.4-5.0 [facility] [place] [facility] Comment on above: Performed By: #### B MP ####[facility] [address] [place], [place] [address]Dr. Trevor Nichols Sodium [Moles/Vol] 138 mmol/L Normal 137-145 [facility] Comment on above: Performed By: #### B MP ####[facility] [address] [place], [place] [address]Dr. Trevor Nichols Urea nitrogen [Mass/Vol] 26.0 mg/dL Critically high 9.0-20.0 [facility] [place] [facility] Comment on above: Performed By: #### B MP ####[facility] [address] [place], [place] [address]Dr. Trevor Nichols Urea nitrogen/Creatinine [Mass ratio] 15.4 mg/mg Normal [facility] [place] [facility] Comment on above: Performed By: #### B MP ####[facility] [address] [place], [place] [address]Dr. Trevor Nichols BNPon 04-29-2021 Natriuretic peptide B (Bld) [Mass/Vol] 421.0 pg/mL Normal <=900.0 [facility] [place] [facility] Comment on above: Performed By: #### B FLEET MANAGER/DISPATCH, MG ####[facility] [address] [place], [place] [address]Gerken Rose Marie CBC W MANUAL DIFFon 04-29-20 21 ATYPICAL LYMPH # 0.19 103/ul Normal [facility] Comment on above: Performed By: #### C JOBY ####[facility] [address] [place], [place] [address]Gerken Rose Marie#### PERSMR ####[facility] [address] [address]Dr. Yilan Nichols ATYPICAL LYMPH % 4 % Normal [facility] Comment on above: Performed By: #### C JOBY ####[facility] [address] [place] [address] Rose Marie#### PERSMR ####[facility] [address] [place], [place] [address]Dr. Yilan Nichols BAND # 0.2 103/ul Normal 0.0-0.3 [facility] Comment on above: Performed By: #### Brodie HEMPHILL ####[facility] [address] [place] [address] Rose [place]#### PERSMR ####[facility] [address] [place], [place] [address]Dr. Yilan Nichols BAND % 5 % Normal 0-5 [facility] Comment on above: Performed By: #### Brodie HEMPHILL ####[facility] [address] [place] [address] Rose [place]#### PERSMR ####[facility] [address] [place], [place] [address]Dr. Yilan Nichols BASOM # 0.05 103/ul Normal 0.00-0.10 [facility] Comment on above: Performed By: #### C JOBY ####[facility] [address] [place] [address] Rose Marie#### PERSMR ####[facility] [address] [place], [place] [address]Dr. Yilan Nichols BASOM % 1.0 % Normal 0.2-2.0 [facility] Comment on above: Performed By: #### C JOBY ####[facility] [address] [place] [address] Rose [place]#### PERSMR ####[facility] [address] [address]Dr. Trevor Nichols BLAST # Normal [facility] Comment on above: Performed By: #### C JOBY ####[facility] [address] [place] [address] Rose Marie#### PERSMR ####[facility] [address] [address]Dr. Tervor Nichols BLAST % Normal [facility] Comment on above: Performed By: #### C JOBY ####[facility] [address] [place] [address] Rose Marie#### PERSMR ####[facility] Y[address] [place], [place] [address]Dr. Trevor Nichols CORRECTED WBC Normal 4.0-11.0 [facility] Comment on above: Performed By: #### Brodie HEMPHILL ####[facility] [address] [place] [address] Rose Marie#### PERSMR ####[facility] [address] [place], [place] [address]Dr. Trevor Nichols EOS # 0.00 103/ul Normal 0.00-0.70 [facility] [place] [facility] Comment on above: Performed By: #### Brodie HEMPHILL ####[facility] [address] [place] [address] [place]#### PERSMR ####[facility] U[address] [place], [place] [address]Dr. Trevor Nichols EOS% 0.0 % Critically low 0.9-7.0 [facility] Comment on above: Performed By: #### Brodie HEMPHILL ####[facility] [address] [place] [address] Rose Marie#### PERSMR ####[facility] Anyvsaz[address] [place], [place] [address]Dr. Trevor Nichols HCT 35.7 % Critically low 42.0-54.0 [facility] Comment on above: Performed By: #### C JOBY ####[facility] [address] [place] [address] [place]#### PERSMR ####[facility] [address] [place], [place] [address]Dr. Trevor Nichols HGB 11.7 g/dl Critically low 14.0-18.0 [facility] Comment on above: Performed By: #### Brodie HEMPHILL ####[facility] [address] [place] [address] [place]#### PERSMR ####[facility] [address] [place], [place] [address]Dr. Trevor Nichols LYMPHM # 0.72 103/ul Critically low 1.20-3.80 [facility] Comment on above: Performed By: #### Brodie HEMPHILL ####[facility] [address] [place] [address] Rose Marie#### PERSMR ####[facility] [address] [place], [place] [address]Dr. Trevor Nichols LYMPHM% 15.0 % Critically low 20.5-60.0 [facility] Comment on above: Performed By: #### Brodie HEMPHILL ####[facility] [address] [place] [address] Rose Marie#### PERSMR ####[facility] [address]tr[address] [place], [place] [address]Dr. Trevor Nichols MCH 34.4 pg Critically high 25.9-34.0 [facility] Comment on above: Performed By: #### Brodie HEMPHILL ####[facility] [address] [place] [address] [place] Marie#### PERSMR ####[facility] Emb[address]bs[address] [place], [place] [address]Dr. Trevor Nichols MCHC 32.8 g/dl Normal 29.9-35.2 [facility] Comment on above: Performed By: #### Brodie HEMPHILL ####[facility] [address] [place] [address] [place]#### PERSMR ####[facility] [address] [address]Dr. Trevor Nichols MCV 105.0 fL Critically high 80.0-94.0 [facility] Comment on above: Performed By: #### C JOBY ####[facility] [address] [place] [address] Rose Marie#### PERSMR ####[facility] [address] [address]Dr. Trevor Nichols METAMYELOCYTE # Normal [facility] Comment on above: Performed By: #### C JOBY ####[facility] [address] [place] [address] Rose Marie#### PERSMR ####[facility] C[address] [place], [place] [address]Dr. Trevor Nichols METAMYELOCYTE % Normal [facility] Comment on above: Performed By: #### Brodie HEMPHILL ####[facility] [address] [place] [address] Rose Marie#### PERSMR ####[facility] E[address]yesjt[address] [place], [place] [address]Dr. Trevor Nichols MONOM# 1.25 103/ul Critically high 0.30-0.80 [facility] Comment on above: Performed By: #### Brodie HEMPHILL ####[facility] [address] [place] [address] Rose Marie#### PERSMR ####[facility] [address] [place], [place] [address]Dr. Trevor Nichols MONOM% 26.0 % Critically high 1.7-12.0 [facility] Comment on above: Performed By: #### C JOBY ####[facility] [address] [place] [address] Rose Marie#### PERSMR ####[facility] [address]ax[address]pi[address] [place], [place] [address]Dr. Trevor Nichols MPV 10.5 fL Normal 9.5-13.5 [facility] Comment on above: Performed By: #### C JOBY ####[facility] J[address]oy[address] [place]#### PERSMR ####[facility] [address] [address]Dr. Trevor Nichols MYELOCYTE # Normal [facility] Comment on above: Performed By: #### Brodie HEMPHILL ####[facility] [address] [address]Gerken [place]#### PERSMR ####[facility] [address] [address]Dr. Trevor Nichols MYELOCYTE % Normal [facility] Comment on above: Performed By: #### Brodie HEMPHILL ####[facility] J[address]wrxah[address] [place]#### PERSMR ####[facility] [address] [address]Dr. Trevor Nichols NRBC Normal [facility] Comment on above: Performed By: #### Brodie HEMPHILL ####[facility] Cmfeff[address]fr[address] [place]#### PERSMR ####[facility] [address] [address]Dr. Trevor Nichols PATH REVIEW INDICATED Normal [facility] [place] [facility] Comment on above: Performed By: #### Brodie HEMPHILL ####[facility] Jffqsdkghv[address] [place]#### PERSMR ####[facility] Ednfdemhdz7140 [place] [address]Dr. Trevor Nichols PLT 158 103/ul Normal 150-450 [facility] Comment on above: Performed By: #### Brodie HEMPHILL ####[facility] Ppywwpvypv9091 [address] [place]#### PERSMR ####[facility] Jmvcdoigvi2849 [place] [address]Dr. Trevor Nichols RBC 3.40 106/ul Critically low 4.70-6.10 The [facility] Comment on above: Performed By: #### Brodie HEMPHILL ####[facility] Rwqrzkqigc6435 [address] [place]#### PERSMR ####[facility] Ypqlavtbcj9355 [place] [id number]. Trevor Nichols RDW 15.6 % Critically high 11.0-15.0 The [facility] Comment on above: Performed By: #### C JOBY ####[facility] [address] [place] [address] [place]#### PERSMR ####[facility] Yqzffikqot1992 [place] [address]Dr. Trevor Nichols SEG # 2.35 103/ul Normal 1.40-6.50 [facility] Comment on above: Performed By: #### C JOBY ####[facility] Paaveisunq[address] [place] [address] [place]#### PERSMR ####[facility] [address] [place], [place] [id number]. Trevor Nichols SEG % 49.0 % Normal 43.0-75.0 [facility] Comment on above: Performed By: #### C JOBY ####[facility] [address] [place] [address] [place]#### PERSMR ####[facility] Ifvkaycpty[address] [place], [place] [address]Dr. Trevor Nichols WBC 4.8 103/ul Normal 4.0-11.0 [facility] Comment on above: Performed By: #### C FAVIOMAN ####[facility] [address] [place] [address] [place]#### PERSMR ####[facility] Emxzynpwqm5208 [place] [address]Dr. Trevor Nichols MAGNESIUMon 04-29-2021 Magnesium [Mass/Vol] 2.4 mg/dL Critically high 1.6-2.3 [facility] Comment on above: Performed By: #### B FLEET MANAGER/DISPATCH, MG ####[facility] [address] [place], [place] [address]Gerken [place] PERIPHERAL SMEARon Pathologist Cyto stain Nom (Cvx/Vag) [ID] DR. BHARTI PARDO Normal [facility] Comment on above: Result Comment: Kate pheral blood smear reveals isolated monocytosis with unremarkable morphology. The neutrophils and platelets are morphologically unremarkable. No atypical lymphocytes or blasts are noted. A reactive process is favored. Clinical correlation is suggested. Dr Bharti Pardo 05/01/2021 Performed By: #### C BCMAN ####[facility] A[address] [place] [address] [place]#### PERSMR ####[facility] Yjheipxidd5758 [place] [address]DrJeffery Nichols VITAMIN D 25 OHon 04-29-2021 VIT D 25-OH 71.4 ng/mL Normal [facility] Comment on above: Performed By: #### V ITAD ####[facility] [address] [place] [address] VIT D RANGES SEE BELOW Normal [facility] Comment on above: Result Comment: <20 ng/mL Vit D deficient 20 - <30 ng/mL Vit D insufficient 30 - 100 ng/mL Vit D sufficient >100 ng/mL Potential Toxicity Performed By: #### V ITAD ####[facility] [address] [place] [address] [place] POC GLUCOSE LABon 06-30-2020 Glucose [Mass/Vol] 108 mg/dL High 70-100 The [facility] Comment on above: Performed By: #### 4 1000, 79650 #### [facility] [address] [facility] [place] [address], [facility] Glucose [Mass/Vol] 165 mg/dL High 70-100 [facility] Comment on above: Performed By: #### 4 1000, 32519 #### [facility] [address] [facility] [place] [address], [place] C REACTIVE PROTEINon 020 CRP [Mass/Vol] 27.8 mg/L High 0.0-7.0 [facility] Comment on above: Order Comment: No: D o not add to previous draw Performed By: #### 4 1000, 19273, 50347 #### [facility] [address] [place] [address], [facility] CBC COMPLETE BLOOD COUNTon 08-29-2019 Erythrocyte distribution width (RBC) [Ratio] 14.3 % Normal 11.5-15.0 [facility] Comment on above: Order Comment: No: D o not add to previous draw Performed By: #### 4 1000, 20584 #### [facility] [address] [place] [id number], [facility] Hematocrit (Bld) [Volume fraction] 34.7 % Low 39.0-50.0 [facility] Comment on above: Order Comment: No: D o not add to previous draw Performed By: #### 4 1000, 97555 #### [facility] [address] [place] [address], [facility] Hemoglobin (Bld) [Mass/Vol] 11.6 g/dL Low 13.0-17.0 [facility] Comment on above: Order Comment: No: D o not add to previous draw Performed By: #### 4 1000, 11784 #### [facility] [address] [facility] [place] [address], [facility] MCH (RBC) [Entitic mass] 35.5 pg High 27.0-33.0 [facility] Comment on above: Order Comment: No: D o not add to previous draw Performed By: #### 4 1000, 09581 #### [facility] [address] [place] [address], [facility] MCHC (RBC) [Mass/Vol] 33.4 g/dL Normal 32.0-35.0 [facility] Comment on above: Order Comment: No: D o not add to previous draw Performed By: #### 4 1000, 53786 #### [facility] [address] [place] [address], [place] MCV (RBC) [Entitic vol] 106.1 fL High 82.0-98.0 [facility] Comment on above: Order Comment: No: D o not add to previous draw Performed By: #### 4 1000, 09215 #### [facility] [address] [place] [address], [place] Nucleated RBC/100 WBC (Bld) [Ratio] 0 % Normal 0-0 [facility] Comment on above: Order Comment: No: D o not add to previous draw Performed By: #### 4 1000, 29555 #### [facility] [address] [place] [address], [place] PLAT CNT 150 10*3/uL Normal 150-400 [facility] Comment on above: Order Comment: No: D o not add to previous draw Performed By: #### 4 1000, 63372 #### [facility] [address] [place] [address], [place] RBC (Bld) [#/Vol] 3.27 10*6/uL Low 4.20-5.70 [facility] Comment on above: Order Comment: No: D o not add to previous draw Performed By: #### 4 1000, 75368 #### [facility] [address] [place] [address], [place] WBC (Bld) [#/Vol] 5.86 10*3/uL Normal 4.00-10.60 [facility] Comment on above: Order Comment: No: D o not add to previous draw Performed By: #### 4 1000, 54384 #### [facility] [address] [place] [address], [facility] CPKon 06-29-2020 CK [Catalytic activity/Vol] 45 U/L Normal 30-223 [facility] Comment on above: Order Comment: Unkno wn Performed By: #### 9 9909, 67821, 18534, 08699 #### [facility] [address] [place] [address], [facility] CT BRAIN WO CONTRASTon 06-29 CT BRAIN WO CONTRAST [facility] Department of Radiology [address] [place] [id number] Patient Name: CHIKI JUAREZ : 1945 Sex: M Age: Race: White Pt. Location: [id number] Patient Status: I Ordered Date: 06/29/2020 9:20:00 [...] region. Electronically signed: Aleta Armas. Transcribed by: [email or web address], User Resident: Electronically Signed by: ALETA ARMAS @ 06/29/2020 07:16 PM Normal [facility] Comment on above: Order Comment: No: D o not add to previous draw D DIMER TESTon 06-29-2020 D-DIMER TEST 1.44 mcg/mL FEU High 0.27-0.49 [facility] Comment on above: Order Comment: No: D o not add to previous draw Result Comment: D-Di fide values of less than 0.50 ug/ml (FEU) are considered to be a negative predictor of thrombosis. However, the D-Dimer result should be used in conjunction with pretest probability and should not be used alone to diagnose a thrombotic event. Performed By: #### 4 1000, 85371, 14501 #### [facility] [address] [place] [address], [facility] FERRITINon 06-29-2020 Ferritin [Mass/Vol] 271 ng/mL Normal 24-336 [facility] Comment on above: Order Comment: Unkno wn Performed By: #### 9 9909, 84611, 18808, 75189 #### [facility] [address] [place] [id number], [facility] LDH BLOODon 06-29-2020 LDH 148 Units/L Normal 140-271 [facility] Comment on above: Order Comment: Unkno wn Performed By: #### 9 9909, 35178, 28495, 51100 #### [facility] [address] [place] [address], [facility] LIPID PROFILEon 06-29-2020 Cholesterol [Mass/Vol] 176 mg/dL Normal 120-200 [facility] Comment on above: Order Comment: No: D o not add to previous draw Result Comment: CHOL ESTEROL REFERENCE RANGE: 20 YEARS AND OLDER CARDIOVASCULAR RISK Less than 200 mg/dl Low Risk 200 to 239 mg/dl Borderline Risk 240 mg/dl and greater High Risk Performed By: #### 4 1000, 54482, 86631 #### [facility] [address] [place] [address], [place] Cholesterol in HDL [Mass/Vol] 39 mg/dL Normal 23-92 [facility] Comment on above: Order Comment: No: D o not add to previous draw Result Comment: Slig ht variation in normal range could be due to gender and/or age. HDL CHOLESTEROL REFERENCE RANGE: 20 years and older Cardiovascular Risk > or =60 mg/dL Desirable 40 TO 59 mg/dL Low Risk <40 mg/dL High Risk Performed By: #### 4 1000, , 52764 #### [facility] [address] [place] [address], [facility] Cholesterol in LDL [Mass/Vol] 100 mg/dL Normal 0-130 [facility] Comment on above: Order Comment: No: D o not add to previous draw Result Comment: LDL IS A CALCULATION LDL IS ONLY VALID IF THE TRIG IS LESS THAN 400. Performed By: #### 4 1000, , 43591 #### [facility] [address] [place] [address], [facility] Cholesterol.total/Ch olesterol in HDL [Mass ratio] 4.5 {ratio} Normal 0.0-4.5 [facility] Comment on above: Order Comment: No: D o not add to previous draw Performed By: #### 4 1000, , 97966 #### [facility] [address] [place] [address], [place] NON-HDL CHOLESTEROL 137 mg/dL Normal [facility] Comment on above: Order Comment: No: D o not add to previous draw Performed By: #### 4 1000, , 02683 #### [facility] [address] [place] [address], [place] Triglyceride [Mass/Vol] 187 mg/dL High 40-149 [facility] Comment on above: Order Comment: No: D o not add to previous draw Result Comment: TRIG LYCERIDE REFERENCE RANGE: 20 YEARS AND OLDER CARDIOVASCULAR RISK LESS THAN 150 mg/dl LOW RISK 150 TO 199 mg/dl BORDERLINE RISK 200 mg/dl AND GREATER HIGH RISK Performed By: #### 4 1000, , 42836 #### [facility] [address] [place] [address], [facility] VLDL CHOL 37 mg/dL Normal 0-40 [facility] Comment on above: Order Comment: No: D o not add to previous draw Performed By: #### 4 1000, 26461, 24186 #### [facility] [address] [place] [address], [place] LIVER BATTERYon 06-29-2020 Albumin [Mass/Vol] 3.4 g/dL Low 3.5-5.7 [facility] Comment on above: Order Comment: Unkno wn Performed By: #### 9 9909, 56950, 77755, 12517 #### [facility] [address] [place] [address], [facility] ALKALINE PHOSPH 60 IU/L Normal 34-104 [facility] Comment on above: Order Comment: Unkno wn Performed By: #### 9 9909, 20864, 43090, 06208 #### [facility] [address] [place] [address], [place] ALT [Catalytic activity/Vol] 8 U/L Normal 7-52 [facility] Comment on above: Order Comment: Unkno wn Performed By: #### 9 9909, 06530, 80676, 03348 #### [facility] [address] [place] [address], [place] AST [Catalytic activity/Vol] 11 U/L Low 13-39 [facility] Comment on above: Order Comment: Unkno wn Performed By: #### 9 9909, 56940, 19637, 36272 #### [facility] [address] [place] [address], [place] Bilirubin [Mass/Vol] 0.5 mg/dL Normal 0.3-1.0 [facility] Comment on above: Order Comment: Unkno wn Performed By: #### 9 9909, 93340, 07425, 61343 #### [facility] [address] [place] [address], [facility] Bilirubin.direct [Mass/Vol] 0.1 mg/dL Normal 0.0-0.2 [facility] Comment on above: Order Comment: Unkno wn Performed By: #### 9 9909, 92975, 41824, 67446 #### [facility] [address] [facility] [place] [address], [facility] Protein [Mass/Vol] 5.8 g/dL Low 6.0-8.3 [facility] Comment on above: Order Comment: Unkno wn Performed By: #### 9 9909, 46055, 06820, 49892 #### [facility] [address] [facility] [place] [address], [facility] POC GLUCOSE LABon 06-29-2020 Glucose [Mass/Vol] 112 mg/dL High 70-100 [facility] Comment on above: Performed By: #### 4 1000, 62072 #### [facility] [address] [facility] [place] [address], [facility] Glucose [Mass/Vol] 105 mg/dL High 70-100 [facility] Comment on above: Performed By: #### 4 1000, 72180 #### [facility] [address] [facility] [place] [address], [place] Glucose [Mass/Vol] 94 mg/dL Normal 70-100 [facility] Comment on above: Performed By: #### 4 1000, 05111, 56731 #### [facility] [address] [place] [address], [place] Glucose [Mass/Vol] 121 mg/dL High 70-100 [facility] Comment on above: Performed By: #### 4 1000, 95430 #### [facility] [address] [facility] [place] [address], [place] PORTABLE CHEST 1 VIEWon 06-17 PORTABLE CHEST 1 VIEW [facility] Department of Radiology [address] [place] [id number] Patient Name: CHIKI JUAREZ : 1945 Sex: M Age: Race: White Pt. Location: [id number] Patient Status: I Ordered Date: 06/29/2020 5:45:00 [...] placement. Electronically signed: Aleta Armas. Transcribed by: [email or web address], User Resident: Electronically Signed by: ALETA ARMAS @ 06/29/2020 08:15 PM Normal [facility] Comment on above: Order Comment: No: D o not add to previous draw BASIC METABOLIC PANELon 06-17 Calcium [Mass/Vol] 8.8 mg/dL Normal 8.6-10.3 [facility] Comment on above: Order Comment: No: D o not add to previous draw Performed By: #### 4 1000, 56360, 21135 #### [facility] [address] [place] [address], [place] Chloride [Moles/Vol] 102 mmol/L Normal 98-107 [facility] Comment on above: Order Comment: No: D o not add to previous draw Performed By: #### 4 1000, 43813, 19319 #### [facility] [address] [place] [address], [place] CO2 [Moles/Vol] 24 mmol/L Normal 21-31 [facility] Comment on above: Order Comment: No: D o not add to previous draw Performed By: #### 4 1000, 86289, 86315 #### [facility] [address] [place] [address], [place] Creatinine [Mass/Vol] 1.31 mg/dL High 0.70-1.30 [facility] Comment on above: Order Comment: No: D o not add to previous draw Performed By: #### 4 1000, 21804, 62261 #### [facility] [address] [place] [address], [place] GFR/1.73 sq M predicted among blacks MDRD (S/P/Bld) [Vol rate/Area] mL/min/{1.73_m2} Normal >60 [facility] Comment on above: Order Comment: No: D o not add to previous draw Result Comment: Calc ulation may not be valid for patients over 70 years Performed By: #### 4 1000, 42102, 16409 #### [facility] [address] [place] [address], [place] GFR/1.73 sq M predicted among non-blacks MDRD (S/P/Bld) [Vol rate/Area] 54 ml/min/1.73sq m Abnormal >60 [facility] Comment on above: Order Comment: No: D o not add to previous draw Result Comment: Calc ulation may not be valid for patients over 70 years Performed By: #### 4 1000, 51622, 80307 #### [facility] [address] [place] [address], [place] Glucose [Mass/Vol] 96 mg/dL Normal 70-100 [facility] Comment on above: Order Comment: No: D o not add to previous draw Performed By: #### 4 1000, , 27143 #### [facility] [address] [place] [address], [place] Potassium [Moles/Vol] 4.3 mmol/L Normal 3.5-5.1 [facility] Comment on above: Order Comment: No: D o not add to previous draw Performed By: #### 4 1000, , 10800 #### [facility] [address] [place] [address], [place] Sodium [Moles/Vol] 133 mmol/L Low 136-145 [facility] Comment on above: Order Comment: No: D o not add to previous draw Performed By: #### 4 1000, , 25764 #### [facility] [address] [place] [address], [place] Urea nitrogen [Mass/Vol] 26 mg/dL High 7-25 [facility] Comment on above: Order Comment: No: D o not add to previous draw Performed By: #### 4 1000, , 29342 #### [facility] [address] [place] [address], [place] CBC COMPLETE BLOOD COUNTon 08-28-2019 Erythrocyte distribution width (RBC) [Ratio] 14.4 % Normal 11.5-15.0 [facility] Comment on above: Order Comment: No: D o not add to previous draw Performed By: #### 4 1000, , 88821 #### [facility] [address] [place] [address], [place] Hematocrit (Bld) [Volume fraction] 35.2 % Low 39.0-50.0 [facility] Comment on above: Order Comment: No: D o not add to previous draw Performed By: #### 4 1000, , 66557 #### [facility] [address] [facility] [place] [address], [facility] Hemoglobin (Bld) [Mass/Vol] 11.8 g/dL Low 13.0-17.0 [facility] Comment on above: Order Comment: No: D o not add to previous draw Performed By: #### 4 1000, , 65652 #### [facility] [address] [place] [address], [facility] MCH (RBC) [Entitic mass] 35.5 pg High 27.0-33.0 [facility] Comment on above: Order Comment: No: D o not add to previous draw Performed By: #### 4 1000, , #### [facility] [address] [facility] [address] MCHC (RBC) [Mass/Vol] 33.5 g/dL Normal 32.0-35.0 [facility] Comment on above: Order Comment: No: D o not add to previous draw Performed By: #### 4 999, , 23210 #### [facility] [address] [facility] [place] [address], [facility] MCV (RBC) [Entitic vol] 106.0 fL High 82.0-98.0 [facility] Comment on above: Order Comment: No: D o not add to previous draw Performed By: #### 4 1000, , 30734 #### [facility] [address] [facility]. [address] Nucleated RBC/100 WBC (Bld) [Ratio] 0 % Normal 0-0 [facility] Comment on above: Order Comment: No: D o not add to previous draw Performed By: #### 4 1000, , 54286 #### [facility] [address] [facility] [place] [address], [facility] PLAT CNT 158 10*3/uL Normal 150-400 [facility] Comment on above: Order Comment: No: D o not add to previous draw Performed By: #### 4 1000, 55186, 34106 #### [facility] [address] [facility] [place] [address], [facility] RBC (Bld) [#/Vol] 3.32 10*6/uL Low 4.20-5.70 [facility] Comment on above: Order Comment: No: D o not add to previous draw Performed By: #### 4 1000, 86839, 28871 #### [facility] [address] [facility] [place] [address], [facility] WBC (Bld) [#/Vol] 7.25 10*3/uL Normal 4.00-10.60 [facility] Comment on above: Order Comment: No: D o not add to previous draw Performed By: #### 4 1000, 73021, 85039 #### [facility] [address] Cardiovascular Lab Reporton 06-28-2020 Cardiovascular Lab Report [facility] Patient Name: Chiki Ju[facility] MR #: [id number] Physician: Connor Carrera MD Department of Service Date: 06/28/2020 Medicine Birthdate: 1945 Division of Room #: 3CD 657486 Cardiology Adult Cardiovascular Services [place] [address] Cardiovascular Laboratory Report DUAL CHAMBER PACEMAKER IMPLANT PROCEDURE NOTE DATE OF PROCEDURE: 06/28/2020 PERFORMING PHYSICIAN: Dr. Connor Carrera CONSENT: Patient LOCATION: EP Lab PROCEDURE PERFORMED: 1. Implantation of pacemaker ([employer]) 2. Ultrasound guided venous access INDICATIONS: [...] using modified seldinger technique using a 5 Arabic micro-puncture needle on two occasions and 0.24 [...] was made enough for the device. 6 Arabic Safesheaths were placed over the wire. An active fixation [employer] pacing lead was then delivered through the 6Fsheath to the right ventricle. After confirmation of lead position on orthogonal views (PARK and LITHUANIAN) to confirm septal position, the screw was activated, and the lead was placed in the right ventricular mid cavity towards the septum. After confirmation of good sensing parameters, injury pattern and pacing thresholds, 10V pacing was done and no diaphragmatic stimulation was noted. It was then secured in the pocket using three 1-0 Silk sutures. Then an active fixation [employer] lead was delivered through the 6Fsheath to the right atrial appendage. After confirmation of lead position on orthogonal views (PARK and LITHUANIAN), the screw was activated. After confirmation of [...] immediate procedural complications were noted. Device info: [employer] Accolade MRI EL Model# L331 Serial# [id number] RA lead: Model# INGEVITY 7740 (45cms) Serial# [id number] Sensin.7mV Threshold: 0.9V@0.4ms Impedance: 666Ohms RV lead: Model# INGEVITY [id number](52cms) Serial# [id number] Sensin.1mV Threshold: 0.4V@0.4ms Impedance: 746Ohms POST PROCEDURE [...] Carrera MD Date Trans: 06/28/2020 03:33 P/alondra [id number] cc: Will Sherwood M.D. [address] [place] [phone] Normal [facility] MAGNESIUM BLOODon 06-28-2020 Magnesium [Mass/Vol] 2.1 mg/dL Normal 1.9-2.7 [facility] Comment on above: Order Comment: No: D o not add to previous draw Performed By: #### 4 1000, 95707, 86692 #### [facility] [address] [place] [address], [facility] PHOSPHORUS BLOODon 0 Phosphate [Mass/Vol] 3.7 mg/dL Normal 2.5-5.0 [facility] Comment on above: Order Comment: No: D o not add to previous draw Performed By: #### 4 1000, 71456, 70619 #### [facility] [address] [place] [address], [place] POC GLUCOSE LABon 06-28-2020 Glucose [Mass/Vol] 93 mg/dL Normal 70-100 [facility] Comment on above: Performed By: #### 4 1000, 46541 #### [facility] [address] [place] [address], [place] Glucose [Mass/Vol] 90 mg/dL Normal 70-100 [facility] Comment on above: Performed By: #### 4 1000, 57190 #### [facility] [address] [place] [address], [place] Glucose [Mass/Vol] 97 mg/dL Normal 70-100 [facility] Comment on above: Performed By: #### 4 1000, 86010 #### [facility] [address] [place] [address], [place] Glucose [Mass/Vol] 99 mg/dL Normal 70-100 [facility] Comment on above: Performed By: #### 4 1000, 12946 #### [facility] [address] [place] [address], [facility] APTTon 06-27-2020 aPTT Coag (Bld) [Time] 34.8 s Normal 25.0-35.0 [facility] Comment on above: Order Comment: No: D [...] THIS PURPOSE. Performed By: #### 4 1000, 60807 #### [facility] [address] [place] [address], [place] BASIC METABOLIC PANELon 11-1 Calcium [Mass/Vol] 9.1 mg/dL Normal 8.6-10.3 [facility] Comment on above: Order Comment: No: D o not add to previous draw Performed By: #### 4 1000, 43864, 61882 #### [facility] [address] [place] [address], [place] Chloride [Moles/Vol] 104 mmol/L Normal 98-107 [facility] Comment on above: Order Comment: No: D o not add to previous draw Performed By: #### 4 1000, 13716, 02579 #### [facility] [address] [place] [address], [place] CO2 [Moles/Vol] 23 mmol/L Normal 21-31 [facility] Comment on above: Order Comment: No: D o not add to previous draw Performed By: #### 4 1000, 97136, 86295 #### [facility] [address] [place] [address], [place] Creatinine [Mass/Vol] 1.21 mg/dL Normal 0.70-1.30 [facility] Comment on above: Order Comment: No: D o not add to previous draw Performed By: #### 4 1000, 41508, 46272 #### [facility] [address] [place] [address], [place] GFR/1.73 sq M predicted among blacks MDRD (S/P/Bld) [Vol rate/Area] mL/min/{1.73_m2} Normal >60 [facility] Comment on above: Order Comment: No: D o not add to previous draw Result Comment: Calc ulation may not be valid for patients over 70 years Performed By: #### 4 1000, 33773, 94706 #### [facility] [address] [place] [address], [place] GFR/1.73 sq M predicted among non-blacks MDRD (S/P/Bld) [Vol rate/Area] 59 ml/min/1.73sq m Abnormal >60 [facility] Comment on above: Order Comment: No: D o not add to previous draw Result Comment: Calc ulation may not be valid for patients over 70 years Performed By: #### 4 1000, 67672, 05422 #### [facility] [address] [place] [address], [place] Glucose [Mass/Vol] 132 mg/dL High 70-100 [facility] Comment on above: Order Comment: No: D o not add to previous draw Performed By: #### 4 1000, 65860, 89350 #### [facility] [address] [place] [address], [place] Potassium [Moles/Vol] 5.2 mmol/L High 3.5-5.1 [facility] Comment on above: Order Comment: No: D o not add to previous draw Performed By: #### 4 1000, 40773, 65236 #### [facility] [address] [place] [address], [place] Sodium [Moles/Vol] 135 mmol/L Low 136-145 [facility] Comment on above: Order Comment: No: D o not add to previous draw Performed By: #### 4 1000, 85955, 69934 #### [facility] [address] [place] [address], [place] Urea nitrogen [Mass/Vol] 21 mg/dL Normal 7-25 [facility] Comment on above: Order Comment: No: D o not add to previous draw Performed By: #### 4 1000, 64437, 87402 #### [facility] [address] [place] [address], [place] C REACTIVE PROTEINon -11-2 020 CRP [Mass/Vol] 40.5 mg/L High 0.0-7.0 [facility] Comment on above: Order Comment: No: D o not add to previous draw Performed By: #### 4 1000, 22849, 51970 #### [facility] [address] [place] [address], [facility] CBC W/DIFFon 06-27-2020 ABS BASOPHILS 0.0 10*3/uL Normal 0.0-0.2 [facility] Comment on above: Order Comment: No: D o not add to previous draw Performed By: #### 4 1000, 29764 #### [facility] [address] [facility] [place] [address], [facility] ABS NEUTROPHILS 4.5 10*3/uL Normal 1.6-7.6 [facility] Comment on above: Order Comment: No: D o not add to previous draw Performed By: #### 4 1000, 00486 #### [facility] [address] [place] [address], [facility] Basophils/100 WBC (Bld) 0.0 % Normal 0.0-1.0 [facility] Comment on above: Order Comment: No: D o not add to previous draw Performed By: #### 4 1000, 31707 #### [facility] [address] [facility] [place] [address], [facility] Eosinophils (Bld) [#/Vol] 0.0 10*3/uL Normal 0.0-0.5 [facility] Comment on above: Order Comment: No: D o not add to previous draw Performed By: #### 4 1000, 54116 #### [facility] [address] [facility] [address] [address] [place] [id number], [facility] Eosinophils/100 WBC (Bld) 0.0 % Normal 0.0-6.0 [facility] Comment on above: Order Comment: No: D o not add to previous draw Performed By: #### 4 1000, 90346 #### [facility] [address] [place] [address], [facility] Erythrocyte distribution width (RBC) [Ratio] 14.1 % Normal 11.5-15.0 [facility] Comment on above: Order Comment: No: D o not add to previous draw Performed By: #### 4 1000, 35028 #### [facility] [address] [place] [address], [facility] GIANT PLATELETS Present Normal [facility] Comment on above: Order Comment: No: D o not add to previous draw Performed By: #### 4 1000, 36954 #### [facility] [address] [place] [id number], [facility] Hematocrit (Bld) [Volume fraction] 36.0 % Low 39.0-50.0 [facility] Comment on above: Order Comment: No: D o not add to previous draw Performed By: #### 4 1000, 27745 #### [facility] [address] [place] [address], [facility] Hemoglobin (Bld) [Mass/Vol] 11.8 g/dL Low 13.0-17.0 [facility] Comment on above: Order Comment: No: D o not add to previous draw Performed By: #### 4 1000, 43433 #### [facility] [address] [facility] [place] [address], [facility] Lymphocytes (Bld) [#/Vol] 0.5 10*3/uL Low 1.2-4.0 [facility] Comment on above: Order Comment: No: D o not add to previous draw Performed By: #### 4 1000, 34400 #### [facility] [address] [facility] [place] [address], [facility] Lymphocytes/100 WBC (Bld) 8.2 % Low 20.0-45.0 [facility] Comment on above: Order Comment: No: D o not add to previous draw Performed By: #### 4 1000, 40496 #### [facility] [address] [place] [address], [facility] MCH (RBC) [Entitic mass] 35.2 pg High 27.0-33.0 [facility] Comment on above: Order Comment: No: D o not add to previous draw Performed By: #### 4 1000, 71046 #### [facility] [address] [place] [address], [facility] MCHC (RBC) [Mass/Vol] 32.8 g/dL Normal 32.0-35.0 [facility] Comment on above: Order Comment: No: D o not add to previous draw Performed By: #### 4 1000, 84518 #### [facility] [address] [place] [address], [facility] MCV (RBC) [Entitic vol] 107.5 fL High 82.0-98.0 [facility] Comment on above: Order Comment: No: D o not add to previous draw Performed By: #### 4 1000, 15295 #### [facility] [address] [facility]. [address] METAMYELO 3.7 % High 0.0-0.0 [facility] Comment on above: Order Comment: No: D o not add to previous draw Performed By: #### 4 1000, 53725 #### [facility] [address] [facility] [place] [address], [facility] Monocytes (Bld) [#/Vol] 0.5 10*3/uL Normal 0.1-1.0 [facility] Comment on above: Order Comment: No: D o not add to previous draw Performed By: #### 4 1000, 84558 #### [facility] [address] [facility] [place] [address], [facility] MONOS 9.2 % Normal 5.0-12.0 [facility] Comment on above: Order Comment: No: D o not add to previous draw Performed By: #### 4 1000, 72420 #### [facility] [address] [place] [address], [facility] MYELOS 3.7 % High 0.0-0.0 [facility] Comment on above: Order Comment: No: D o not add to previous draw Performed By: #### 4 1000, 41602 #### [facility] [address] [place] [address], [place] Neutrophils/100 WBC (Bld) 75.2 % High 40.0-72.0 [facility] Comment on above: Order Comment: No: D o not add to previous draw Performed By: #### 4 1000, 59974 #### [facility] [address] [place] [address], [place] NRBC SCAN Present Normal [facility] Comment on above: Order Comment: No: D o not add to previous draw Performed By: #### 4 1000, 24290 #### [facility] [address] [place] [address], [place] Nucleated RBC/100 WBC (Bld) [Ratio] 0 % Normal 0-0 [facility] Comment on above: Order Comment: No: D o not add to previous draw Performed By: #### 4 1000, 38863 #### [facility] [address] [place] [address], [place] PLAT CNT 153 10*3/uL Normal 150-400 [facility] Comment on above: Order Comment: No: D o not add to previous draw Performed By: #### 4 1000, 76974 #### [facility] [address] [place] [address], [place] RBC (Bld) [#/Vol] 3.35 10*6/uL Low 4.20-5.70 [facility] Comment on above: Order Comment: No: D o not add to previous draw Performed By: #### 4 1000, 72537 #### [facility] [address] [place] [address], [place] WBC (Bld) [#/Vol] 5.92 10*3/uL Normal 4.00-10.60 [facility] Comment on above: Order Comment: No: D o not add to previous draw Performed By: #### 4 1000, 00919 #### [facility] [address] [facility] [place], [place] [id number] [place] [address] CPKon 06-27-2020 CK [Catalytic activity/Vol] 90 U/L Normal 30-223 [facility] Comment on above: Order Comment: No: D o not add to previous draw Performed By: #### 4 1000, 02425, 68752 #### [facility] [address] [facility] [place] [address], [facility] CTA HEADon 06-27-2020 CTA HEAD [facility] of Radiology [address] [place] [id number] Patient Name: CHIKI JUAREZ : 1945 Sex: M Age: Race: White Pt. Location: [id number] Patient Status: I Ordered Date: 06/27/2020 9:05:00 [...] achievable Electronically signed: Ashu García. Transcribed by: [email or web address], User Resident: Electronically Signed by: ASHU GARCÍA @ 06/27/2020 01:12 PM Normal [facility] Comment on above: Order Comment: No: D o not add to previous draw CTA NECKon 06-27-2020 CTA NECK [facility] Department of Radiology [address] [place] [id number] Patient Name: CHIKI JUAREZ : 1945 Sex: M Age: Race: White Pt. Location: [id number] Patient Status: I Ordered Date: 06/27/2020 9:05:00 [...] viewed on a separate workstation. The [place] Symptomatic Carotid Endarterectomy Trial (NASCET) method for [...] achievable Electronically signed: Ashu García. Transcribed by: [email or web address], User Resident: Electronically Signed by: ASHU GARCÍA @ 06/27/2020 01:08 PM Normal [facility] D DIMER TESTon 06-27-2020 D-DIMER TEST 0.39 mcg/mL FEU Normal 0.27-0.49 [facility] Comment on above: Order Comment: No: D o not add to previous draw Result Comment: D-Di fide values of less than 0.50 ug/ml (FEU) are considered to be a negative predictor of thrombosis. However, the D-Dimer result should be used in conjunction with pretest probability and should not be used alone to diagnose a thrombotic event. Performed By: #### 4 1000, 72415 #### [facility] [address] [place] [address], [facility] FERRITINon 06-27-2020 Ferritin [Mass/Vol] 250 ng/mL Normal 24-336 [facility] Comment on above: Order Comment: No: D o not add to previous draw Performed By: #### 4 1000, , 75661 #### [facility] [address] [place] [address], [facility] HEMOGLOBIN A1Con 06-27-2020 HbA1c (Bld) [Mass fraction] 134 mmol/L Normal [facility] Comment on above: Order Comment: No: D o not add to previous draw Performed By: #### 4 1000, , 22229 #### [facility] [address] [place] [address], [facility] HbA1c (Bld) [Mass fraction] 6.3 % High 4.0-6.0 [facility] Comment on above: Order Comment: No: D o not add to previous draw Performed By: #### 4 1000, , 34479 #### [facility] [address] [place] [address], [facility] LDH BLOODon 06-27-2020 LDH 213 Units/L Normal 140-271 [facility] Comment on above: Order Comment: No: D o not add to previous draw Performed By: #### 4 1000, 14300, 41006 #### [facility] [address] [place] [address], [facility] LIVER BATTERYon 06-27-2020 Albumin [Mass/Vol] 3.5 g/dL Normal 3.5-5.7 [facility] Comment on above: Order Comment: No: D o not add to previous draw Performed By: #### 4 1000, 74835, 62371 #### [facility] [address] [place] [address], [place] ALKALINE PHOSPH 62 IU/L Normal 34-104 [facility] Comment on above: Order Comment: No: D o not add to previous draw Performed By: #### 4 1000, , 67521 #### [facility] [address] [place] [address], [place] ALT [Catalytic activity/Vol] 11 U/L Normal 7-52 [facility] Comment on above: Order Comment: No: D o not add to previous draw Performed By: #### 4 1000, , 50649 #### [facility] [address] [place] [address], [place] AST [Catalytic activity/Vol] 10 U/L Low 13-39 [facility] Comment on above: Order Comment: No: D o not add to previous draw Performed By: #### 4 1000, , 93757 #### [facility] [address] [place] [address], [place] Bilirubin [Mass/Vol] 0.5 mg/dL Normal 0.3-1.0 [facility] Comment on above: Order Comment: No: D o not add to previous draw Performed By: #### 4 1000, , 03958 #### [facility] [address] [place] [address], [place] Bilirubin.direct [Mass/Vol] 0.2 mg/dL Normal 0.0-0.2 [facility] Comment on above: Order Comment: No: D o not add to previous draw Performed By: #### 4 1000, , 77432 #### [facility] [address] [place] [address], [place] Protein [Mass/Vol] 6.0 g/dL Normal 6.0-8.3 [facility] Comment on above: Order Comment: No: D o not add to previous draw Performed By: #### 4 1000, , 14963 #### [facility] [address] [place] [address], [place] MAGNESIUM BLOODon 06-27-2020 Magnesium [Mass/Vol] 2.3 mg/dL Normal 1.9-2.7 [facility] Comment on above: Order Comment: No: D o not add to previous draw Performed By: #### 4 1000, 42382, 06610 #### [facility] [address] [place] [address], [facility] POC GLUCOSE LABon 06-27-2020 Glucose [Mass/Vol] 103 mg/dL High 70-100 [facility] Comment on above: Performed By: #### 4 1000, 25406 #### [facility] [address] [place] [address], [facility] Glucose [Mass/Vol] 100 mg/dL Normal 70-100 [facility] Comment on above: Performed By: #### 4 1000, 06963 #### [facility] [address] [place] [address], [facility] POTASSIUM BLOODon 06-27-2020 Potassium [Moles/Vol] 4.5 mmol/L Normal 3.5-5.1 [facility] Comment on above: Order Comment: No: D o not add to previous draw Performed By: #### 4 1406 #### [facility] [address] [place] [address], [facility] PROTHROMBIN TIMEon 0 INR Coag (PPP) [Relative time] 1.05 {INR} Normal 0.91-1.16 [facility] Comment on above: Order Comment: No: D [...] CHEST 1995;[id number]. Performed By: #### 4 1000, 74532 #### [facility] [address] PT Coag (PPP) [Time] 13.7 s Normal 12.3-14.8 [facility] Comment on above: Order Comment: No: D o not add to previous draw Result Comment: ALL RESULTS MUST BE INTERPRETED WITH RESPECT TO BLOOD DRAWING ARTIFACT OR DILUTION ERROR OF ANTICOAGULANT AT THE TIME OF SAMPLING. Performed By: #### 4 1000, 17883 #### [facility] [address] TSH3 WITH REFLEX FT4on 06-27 TSH 3RD GENERATION 0.86 uIU/mL Normal 0.34-5.60 [facility] Comment on above: Performed By: #### 4 1000, 99502, 21340 #### [facility] [address] VITAMIN B12on 06-27-2020 Cobalamin (Vitamin B12) [Mass/Vol] 3006 pg/mL High 180-914 [facility] Comment on above: Result Comment: REFE RENCE RANGES: 180-914 pg/mL Normal 145-179 pg/mL Indeterminate <145 pg/mL Deficient Performed By: #### 4 1000, 89749, 64370 #### [facility] [address] PHOSPHORUS BLOODon 0 Phosphate [Mass/Vol] 3.2 mg/dL Normal 2.5-5.0 [facility] Comment on above: Order Comment: No: D o not add to previous draw Performed By: #### 4 1000, 18150 #### [facility] [address] [place] [address], [facility] TROPONIN-Ion 06-26-2020 Troponin I.cardiac [Mass/Vol] 0.01 ng/mL Normal 0.00-0.04 [facility] Comment on above: Order Comment: No: D o not add to previous draw Result Comment: REFE RENCE RANGES: 0.00 - 0.04 ng/ml NORMAL 0.05 - 0.50 ng/ml INDETERMINATE > 0.50 ng/ml CONSISTENT WITH AN M.I. Performed By: #### 4 1000, 00374 #### [facility] [address] Vital Signs Date Time Vital Sign Value Performing Clinician Facility 03-09-2023 10:50-0400 Blood Pressure Location Oni MCKEON [facility] 03-09-2023 10:50-0400 Diastolic blood pressure 70 mm[Hg] Oni MCKEON [facility] 03-09-2023 10:50-0400 Heart rate 71 /min Oni MCKEON [facility] 03-09-2023 10:50-0400 Respiratory rate 16 /min Oni MCKEON [facility] 03-09-2023 10:50-0400 Systolic blood pressure 109 mm[Hg] Oni MCKEON [facility] 01-09-2022 13:00-0400 Body height 172.7 cm Hosea Herrera MD Work Phone: [facility] 01-09-2022 13:00-0400 Body temperature 97.81 [degF] Hosea Herrera MD Work Phone: [facility] 01-09-2022 13:00-0400 Body weight 100.61 kg Hosea Herrera MD Work Phone: [facility] 01-09-2022 13:00-0400 Diastolic blood pressure 68 mm[Hg] Hosea Herrera MD Work Phone: [facility] 01-09-2022 13:00-0400 Heart rate 93 /min Hosea Herrera MD Work Phone: [facility] 01-09-2022 13:00-0400 Respiratory rate 18 /min Hosea Herrera MD Work Phone: [facility] 01-09-2022 13:00-0400 SaO2% (BldA) [Mass fraction] 93 % Hosea Herrera MD Work Phone: [facility] 01-09-2022 13:00-0400 Systolic blood pressure 95 mm[Hg] Hosea Herrera MD Work Phone: [facility] 11-19-2021 10:19-0400 Blood Pressure Location Romeo Vidal Jr. [facility] 11-19-2021 10:19-0400 Diastolic blood pressure 60 mm[Hg] Romeo Vidal Jr. [facility] 11-19-2021 10:19-0400 Heart rate 80 /min Romeo Vidal Jr. [facility] 11-19-2021 10:19-0400 Respiratory rate 16 /min Romeo Vidal Jr. [facility] 11-19-2021 10:19-0400 Systolic blood pressure 113 mm[Hg] Romeo Vidal Jr. [facility] [place] Encounters Encounter Date Encounter Type Care Provider Facility Start: 03-14-2024 ambulatory Oni Salasi ty:[facility] [place] Start: 01-22-2024 ambulatory Marlys Olivia Facility: [facility] Start: 08-24-2023 ambulatory Pito Patterson Facility :[facility] Start: 08-03-2023 End: 08-04-2023 ambulatory Pito Patterson Facility:[facility] Start: 07-30-2023 End: 07-30-2023 ambulatory PITO PATTERSON Facility:[facility] Start: 07-28-2023 End: 07-28-[address] [facility] Start: 07-23-2023 End: 07-23-2023 ambulatory PITO PATTERSON Facility:[facility] Start: 07-16-2023 End: 07-16-2023 ambulatory BERT ACEVEDO Not Available Start: 05-28-2023 End: 05-29-2023 ambulatory Pito Patterson Facility:[facility] Start: 05-21-2023 End: 05-21-2023 ambulatory ANASTASIA [facility] Start: 05-11-2023 End: 05-12-2023 ambulatory Pito Patterson Facility:[facility] Start: 03-31-2023 End: 03-31-2023 ambulatory [facility] Start: 03-31-2023 End: 04-01-2023 ambulatory Oni MCKEON Facility:[facility] Start: 03-31-2023 End: 03-31-2023 Patient encounter procedure Oni MCKEON [facility] Start: 03-09-2023 End: 03-10-2023 ambulatory Oni MCKEON Facility:[facility] Start: 03-09-2023 End: 03-10-2023 ambulatory Oni MCKEON Facility:[facility] Start: 03-09-2023 End: 03-09-2023 Patient encounter procedure Oni MCKEON [facility] [place] Start: 01-26-2023 End: 01-27-2023 ambulatory Marlys L Corwin Facility:[facility] Start: 01-26-2023 End: 01-26-2023 Lab Drop off Marlys L Corwin [facility] Start: 01-22-2023 End: 01-23-2023 ambulatory Marlys L Corwin Facility:[facility] Start: 01-22-2023 End: 01-23-2023 ambulatory Marlys L Corwin Facility:[facility] Start: 01-16-2023 End: 01-17-2023 ambulatory Pito Patterson Facility:[facility] Start: 01-09-2023 ambulatory Oni MCKEON Facili ty: [facility] Start: 11-28-2022 End: 11-28-2022 ambulatory [facility] Start: 10-28-2022 End: 10-29-2022 ambulatory Pito Patterson Facility:[facility] [place] Start: 10-24-2022 ambulatory [facility] Start: 10-14-2022 End: 10-14-2022 ambulatory [facility] Start: 08-05-2022 Telephone encounter Lynsey Diaz RN Hematology/Oncology Comment on above: Results Start: 07-24-2022 Telephone encounter Tyler cadena MD Work Phone: [facility] Comment on above: Appointment Start: 04-22-2022 End: 04-23-[address] WILL SHERWOOD Facility:[facility] Start: 04-16-2022 End: 04-17-[address] [...] procedure Romeo Vidal Jr. [facility] Start: 09-24-2021 End: 09-25-[address] WILL SHERWOOD Facility:[facility] Start: 09-10-2021 End: 09-11-[address] WILL SHERWOOD Facility:[facility] Start: 09-09-2021 End: 09-10-[address] WILL SHERWOOD Facility:[facility] Start: 09-06-2021 End: 10-10-[address] WILL SHERWOOD Facility:[facility] Start: 09-05-2021 End: 09-06-[address] [facility] Facility:[facility] Start: 07-30-2021 End: 07-31-[address] [...] Evaluation and management of inpatient CRESCENCIO FLETCHER Facility:[facility] Procedures Date Procedure Procedure Detail Performing Clinician Start: 01-09-2022 Adult depression scr eening assessment Hosea Herrera MD Work Phone: Start: 01-07-[address] WILL LINDA Comment on above: Performed By: #### P SAD ####[place] [id number] [place] [id number]. Trevor Nichols Start: 06-28-2020 INSERT PACE. DUAL [...] Author Start: 07-18-2025 DIABETES SCREEN DIABETES SCREEN [facility] Start: 01-09-2025 DIABETES SCREEN DIABETES SCREEN [facility] Start: 01-09-2023 Adult depression screening assessment DEPRESSION SCREENING [facility] Start: 07-18-2022 End: 09-17-2022 CBC panel - Blood by Automated count CBC Lab Routine MGUS (monoclonal gammopathy of unknown significance) Expected: 07/18/2022 (Approximate), Expires: 09/17/2022 [facility] Work Phone: Comment on above: Expected: 07/18/2022 (Approximate), Expires: 09/17/2022 Start: 07-18-2022 End: 09-17-2022 Comprehensive metabolic 2000 panel - Serum or Plasma COMP METABOLIC PANEL Lab Routine MGUS (monoclonal gammopathy of unknown significance) Expected: 07/18/2022 (Approximate), Expires: 09/17/2022 [facility] Work Phone: Comment on above: Expected: 07/18/2022 (Approximate), Expires: 09/17/2022 Start: 07-18-2022 End: 09-17-2022 MONOCLONAL PROTEIN, SERUM (BLOOD) MONOCLONAL PROTEIN, SERUM (BLOOD) Lab Routine MGUS (monoclonal gammopathy of unknown significance) Expected: 07/18/2022 (Approximate), Expires: 09/17/2022 [facility] Work Phone: Comment on above: Expected: 07/18/2022 (Approximate), Expires: 09/17/2022 Start: 07-18-2022 End: 09-17-2022 PROTEIN ELECTROPHORESIS SERUM W/INTERP PROTEIN ELECTROPHORESIS SERUM W/INTERP Lab Routine MGUS (monoclonal gammopathy of unknown significance) Expected: 07/18/2022 (Approximate), Expires: 09/17/2022 [facility] Work Phone: Comment on above: Expected: 07/18/2022 (Approximate), Expires: 09/17/2022 Start: 05-06-2022 COVID-19 VACCINE (5 - Booster for Pfizer series) COVID-19 VACCINE (5 - Booster for Pfizer series) [facility] Start: 04-17-2022 Influenza vaccination INFLUENZA (#1) [facility] Start: 09-25-2021 COVID-19 VACCINE (4 - Booster for Pfizer series) COVID-19 VACCINE (4 - Booster for Pfizer series) [facility] Start: 08-17-2021 ADVANCE DIRECTIVE DISCUSSION ADVANCE DIRECTIVE DISCUSSION [facility] Start: 08-17-2021 DEPRESSION ASSESSMENT DEPRESSION ASS ESSMENT [facility] Start: 1997 SHINGRIX VACCINE (1 of 2) [place] GRIX VACCINE (1 of 2) [facility] Start: 1992 COLOGUARD (FIT-DNA) COLOGUARD (FIT-D NA) [facility] Start: 1992 Colonoscopy COLONOSCOPY [facility] Start: 1992 COLORECTAL CANCER SCREENING COLORECTAL CANCER SCREENING [facility] Start: [address] COLONOGRAPHY [facility] Start: 1992 FECAL OCCULT BLOOD FECAL OCCULT BLOO D [facility] Start: 1992 SIGMOIDOSCOPY SIGMOIDOSCOPY [facility] Start: 1982 LIPID SCREEN LIPID SCREEN [facility] Start: 1966 SHINGRIX VACCINE (1 of 2) [place] GRIX VACCINE (1 of 2) [facility] Start: 1966 Urine microalbumin profile DTAP,TDAP,TD (1 - Tdap) [facility] Start: 1965 HEPATITIS C SCREENING HEPATITIS C SC REENING [facility] Start: 1947 ABDOMINAL AORTIC ANE URYSM SCREENING ABDOMINAL AORTIC ANEURYSM SCREENING [facility] CBC W Auto Different ial panel - Blood CBC + DIFF Lab Routine B12 deficiency Diffuse large B-cell lymphoma, unspecified body region (HCC) 01/09/2022 1:40 PM EDT [facility] Work Phone: [facility] Immunizations Immunization Date Immunization Notes Care Provider Eric garcia 03-11-2022 SARS-CoV-2 mRNA (pottrfykzjb-wwcy-fbdxdd e) vaccine Marlys Olivia [facility] 06-25-2021 SARS-CoV-2 (COVID-19 ) mRNA BNT-162b2 vax Marlys Corwin [facility] 05-24-2021 influenza virus vacc ine, unspecified formulation Marlys Corwin [facility] 11-13-2020 COVID-19 vaccine, ag e 12+ yr ([facility] - [facility]) Hosea Herrera MD Work Phone: [facility] 10-22-2020 COVID-19 vaccine, ag e 12+ yr ([facility] - [facility]) Hosea Herrera MD Work Phone: [facility] 07-24-2020 zoster vaccine recombinant Marlys Corwin [facility] 05-09-2020 influenza virus vacc ine, unspecified formulation Marlys Corwin [facility] 05-09-2020 tetanus toxoid, redu juvencio diphtheria toxoid, and acellular pertussis vaccine, adsorbed Marlys Corwin [facility] 05-09-2020 zoster vaccine recombinant Marlys Corwin [facility] 04-16-2019 influenza virus vacc ine, unspecified formulation Marlys Corwin [facility] 05-25-2018 influenza virus vacc ine, unspecified formulation Marlys Corwin [facility] 05-25-2018 influenza, injectabl e, quadrivalent, preservative free Hosea Herrera MD Work Phone: [facility] 05-25-2018 pneumococcal polysaccharide vaccine, 23 valent Hosea Herrera MD Work Phone: [facility] 04-26-2018 influenza virus vacc ine, unspecified formulation Marlys Corwin [facility] 04-26-2018 influenza, high dose seasonal, preservative-free Hosea Herrera MD Work Phone: [facility] 04-26-2018 pneumococcal polysaccharide vaccine, 23 valent Hosea Herrera MD Work Phone: [facility] 08-04-2017 influenza virus vacc ine, unspecified formulation Marlys Corwin [facility] 08-04-2017 influenza, high dose seasonal, preservative-free Hosea Herrera MD Work Phone: [facility] 08-04-2017 pneumococcal conjuga te vaccine, 13 valent Hosea Herrera MD Work Phone: [facility] influenza vaccine qs 240 mcg, Patients 65 years and older,, PF, (FLUZONE HIGHDOSE QUAD 20-21 PF) 240 mcg/0.7 mL injection Hosea Herrera MD Work Phone: [facility] Comment on above: Fluzone High-Dose Qu ad 2020-21 (PF) 240 mcg/0.7 mL IM syringe PHARMACY ADMINISTERED influenza vaccine qs 240 mcg, Patients 65 years and older,, PF, (FLUZONE HIGHDOSE QUAD 20-21 PF) 240 mcg/0.7 mL injection Tyler Draper MD Work Phone: [facility] Comment on above: Fluzone High-Dose Qu ad 2020-21 (PF) 240 mcg/0.7 mL IM syringe PHARMACY ADMINISTERED Payers Date Payer Category Payer Medicare [id number] 2022 Private Health Insurance [id number] 2014 Medicare AETNA MEDICARE A ETNA MEDICARE PPO [id number] 2014-Present [phone] [address] [place] [address] PPO [id number] 2014 Medicare AETNA MEDICARE A ETNA MEDICARE PPO [id number] 2014-Present [phone] [address] [place] [address] PPO [id number] 1959 Medicare [id number] 1959 Private Health Insurance [facility] [id number] 1959 Self-pay 1947 Unknown [id number] 2.16.840.1.868432.3.579.2.6 47 1947 Unknown [id number] 2.16.840.1.278339.3.579.2.5 93 1947 Unknown [id number] 2.16.840.1.270062.3.579.2.5 93 1947 Unknown [id number] 2.16.840.1.527695.3.579.2.5 93 1947 Unknown [id number] 2.16.840.1.190870.3.579.2.5 93 1947 Unknown [id number] 2.16.840.1.825078.3.579.2.5 93 1947 Unknown [id number] 2.16.840.1.532026.3.579.2.5 93 1947 Unknown [id number] 2.16.840.1.614729.3.579.2.5 93 1947 Unknown [id number] 2.16.840.1.200990.3.579.2.5 93 1947 Unknown [id number] 2.16.840.1.337815.3.579.2.5 93 1947 Unknown [id number] 2.16.840.1.116950.3.579.2.5 93 1947 Unknown [id number] 2.16.840.1.364948.3.579.2.5 93 1947 Unknown [id number] 2.16.840.1.228398.3.579.2.5 93 1947 Unknown [id number] 2.16.840.1.961402.3.579.2.5 93 1947 Unknown [id number] 2.16.840.1.780285.3.579.2.5 93 1947 Unknown [id number] 2.16.840.1.587980.3.579.2.5 93 1947 Unknown [id number] 2.16.840.1.230025.3.579.2.5 93 1947 Unknown [id number] 2.16.840.1.827068.3.579.2.5 93 1947 Unknown [id number] 2.16.840.1.054467.3.579.2.5 93 1947 Unknown [id number] 2.16.840.1.384149.3.579.2.5 93 1947 Unknown [id number] 2.16.840.1.987374.3.579.2.5 93 1947 Unknown [id number] 2.16.840.1.007728.3.579.2.1 259 1947 Unknown [id number] 2.16.840.1.109860.3.579.2.7 27 1947 Unknown [id number] 2.16.840.1.757843.3.579.2.7 27 1947 Unknown [id number] 2.16.840.1.206880.3.579.2.7 27 1947 Unknown [id number] 2.16.840.1.237367.3.579.2.7 27 1947 Unknown [id number] 2.16.840.1.160229.3.579.2.7 27 1947 Unknown [id number] 2.16.840.1.172867.3.579.2.7 27 1947 Unknown [id number] 2.16.840.1.650123.3.579.2.7 27 1947 Unknown [id number] 2.16.840.1.433502.3.579.2.7 27 1947 Unknown [id number] 2.16.840.1.097283.3.579.2.7 27 1947 Unknown [id number] 2.16.840.1.611282.3.579.2.7 27 1947 Unknown [id number] 2.16.840.1.757617.3.579.2.7 27 1947 Unknown [id number] 2.16.840.1.116806.3.579.2.7 27 1947 Unknown [id number] 2.16.840.1.399278.3.579.2.7 27 1947 Unknown [id number] 2.16.840.1.805956.3.579.2.7 27 1947 Unknown [id number] 2.16.840.1.252819.3.579.2.7 1947 Unknown [id number] 2.16.840.1.983578.3.579.2.7 27 1947 Unknown [id number] 2.16.840.1.718929.3.579.2.7 27 Unknown [id number] 2.16.840.1.401050.3.579.2.5 93 Social History Date Type Detail Facility Start: 11-19-2021 End: 01-22-2023 Tobacco smoking status Ex-smoker (finding) [facility] Sex Assigned At Male [facility] End: 09-06-1988 History of tobacco use Current smoker [facility] Start: 09-06-2012 End: 07-31-2022 Cigarettes smoked current (pack per day) - Reported 1 [facility] Start: 09-06-2012 End: 07-31-2022 Tobacco use and exposure Smokeless tobacco non-user [facility] Start: 01-09-2022 End: 07-31-2022 Alcohol intake Current drinker of alcohol (finding) [facility] Start: 04-05-2019 History SDOH Alcohol Comment rare [facility] Start: 1945 Sex Assigned At Not on file C [facility] Start: 12-30-2021 End: 01-09-2022 Exposure to SARS-CoV-2 (event) Not sure [facility] End: 09-06-1988 History of tobacco use Cigarette Smoker [facility] History of tobacco use Passive smoker [facility] Functional Status Date Assessment Result Facility 03-09-2023 Functional Status N/A [facility] Clinical Notes 11-19-2021 to 07-30-2023 Telephone Encounter - Lynsey Diaz RN - 08/05/2022 1:46 PM ESTTelephone Encounter - Lynsey Diaz RN - 08/05/2022 1:45 PM ESTTelephone Encounter - Kavitha Trevino - 07/25/2022 11:25 AM EST Note Date & Type Note Facility 07-30-2023 Note HNO ID: [id number] Author: Tyler Draper MD Service: ? Author Type: Physician [...] to light. Extraocul (more content not included)... [facility] 07-28-2023 Note [place] [facility] Subjective Chiki Issa Juarez is a 78 y.o. year old male patient being seen per Dr. Mayra Berg of pulmonary medicine at [facility] to discuss possible increase in diuretic. says [...] of COPD and is currently followed at [facility]. He takes multiple inhalers. In June 2020 [...] of breath. He recently was seen at [facility] pulmonary and was recommended to follow-up with [...] is alert and (more content not included)... [facility] 05-21-2023 Note Cardiovascular Medic [facility] SUBJECTIVE Chief Complaint Patient presents with [...] 46. [employer] (more content not included)... [facility] 05-21-2023 Note Patient here for 6 m o follow up NSVT, chronic diastolic heart failure, pulmonary hypertension, and complete AV block. Device was routinely interrogated in Mar 2023. Denies chest pain and palpitations. Sees Dr. Berg at [facility] for pulmonology. Doing well from cardiac standpoint. Review of Systems Cardiovascular: Positive for dyspnea on exertion and leg swelling (resolves by morning). Respiratory: Positive for shortness of breath. Hematologic/Lymphatic: Bruises/bleeds easily. Neurological: Positive for headaches and light-headedness (positional). All other systems reviewed and are negative. [facility] 03-31-2023 Note [id number] [facility] 03-31-2023 Hospital Discharge instructions Patient Education [...] Address: [facility] [address] [place] [address]- Business (1) When:03/31/2024 11:58:05 Comments:With a renal ultrasound [facility] 03-31-2023 Note Custom Cystoscopy ? Voiding after [...] you have a fever over 100 degrees. [facility] 03-09-2023 Hospital Discharge instructions Patient Education [...] urethra. Follow these instructions at home: Take tqdx-gzf-eljhyjf and prescription medicines only as told by [...] provider. Document Revised: 02/19/2022 Document Reviewed: 02/19/2022 [employer] Patient Education 2022 [employer]. Follow Up Care 02/13/2023 11:39:29 With:MIKE VENTURA, Oni Sewell, URL Address: [facility] [address] [place] [address]- [phone] When: Unknown Comments:schedule cysto and renal US1 yr w/ PSA [facility] 11-28-2022 Note Cardiovascular Medic [facility] SUBJECTIVE Chief Complaint Patient presents with Hyperlipidemia Shortness of Breath Chiki Juarez is a 77 y.o. male here for follow-up on his pacemaker which was placed for complete heart block. HPI Last HPI per Dr. Easton: Chiki is seen in follow-up. He is a 77-year-old man with prior history of COPD and is currently followed at [facility]. He takes multiple inhalers. In June 2020 he was admitted with COVID-19 infection and had a cerebrovascular accident with resultant difficulty speaking. At that time he was also found to have complete heart block and underwent dual-chamber pacemaker implantation. He does have lower extremity edema and worsening shortness of breath. He recently was seen at [facility] pulmonary and was recommended to follow-up with [...] present. Left low (more content not included)... [facility] 11-28-2022 Note Patient here for 6 m o follow up hyperlipidemia, CANO, and complete AV block. Denies chest pain. SOB is no more than usual. Had labs in Jul 2022. Review of Systems Cardiovascular: Positive for dyspnea on exertion. Respiratory: Positive for shortness of breath. Hematologic/Lymphatic: Bruises/bleeds easily. Neurological: Positive for headaches and light-headedness. All other systems reviewed and are negative. [facility] 08-05-2022 Miscellaneous Notes Informed pt of Dr Draper's message. Pt verbalized understanding and denies further needs at this time. Lynsey Diaz RN ----- Message from Tyler Draper MD sent at 08/04/2022 12:29 PM EST ----- Please inform the patient that his PSA is stable at 0.26. We will continue as planned. 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 He has a family history significant for [...] a history of Hypothyroidism Prostate Cancer, localized, Sutton 7, treated with EBRT (Dr. 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 No family history of hematologic or oncologic issues but significant for cystic fibrosis in brother and nephew; granddaughter is a carrier of cystic fibrosis. Patient lives in [place], [place] with his , Nicolasa. He has 4 children. He has a 20-xqoz-yetd smoking history and quit in 1986. 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 He has a family history significant for [...] with PET CR ?Bronchiectasis, follows pulmonology at [facility] Possible cystic fibrosis, follows pulmonology at [facility], genetic testing pending Previous surgeries include a pacemaker in 2020. No family history of hematologic or oncologic issues but significant for cystic fibrosis in brother and nephew; granddaughter is a carrier of cystic fibrosis. Patient lives in [place] with his , Nicolasa. He has 4 children. He has a 22-knbw-yfxx smoking history and quit in 1986. He [...] Thus, a bone marrow biopsy would not global director air and climate change and it is okay to hold off for now. PSA stable at 0.30. He will follow up with Dr. Sousa for his history of prostate cancer. Hosea Herrera MD I spent a total of 20 minutes on the date of the service which included preparing to see the patient, pklo-tk-lgxi patient care, completing clinical documentation, obtaining and/or reviewing separately obtained history, performing a medically appropriate examination, counseling and educating the patient/family/caregiver, ordering medications, tests, or procedures, independently interpreting results (not separately reported) and communicating results to the patient/family/caregiver. CC: Will Sherwood documented in this encounter [facility] 11-19-2021 Hospital Discharge instructions Patient Education 11/19/2021 [...] who: Are older than age 65. Are -Canadian. Are obese. Have a family history of [...] cells. Follow these instructions at home: Take xnoh-xhj-dgskcyg and prescription medicines only as told by [...] 08/03/2006 Document Revised: 07/16/2018 Document Reviewed: 04/13/2017 [employer] Patient Education 2020 [employer]. Follow Up Care 10/30/2020 10:17:46 With:Young Manriquez MD, Romeo Valles, URO Address: [facility] [address] [place] [address]- [phone] When: Unknown [facility] Evaluation + Plan note Future Appointments Appointment Date:11/25/2022 10:15:00 AM Scheduled Provider:Romeo Vidal Jr., MD Location:[facility] Appointment Type:URO Office Visit [facility] Evaluation + Plan note Future Appointments Appointment Date:01/22/2024 11:00:00 AM Scheduled Provider: Location:[facility] Appointment Type:FM Medicare Wellness Subsequent Diagnostic Tests PendingT3 Free 01/26/23 [facility] Evaluation + Plan note Future Appointments Appointment Date:03/24/2023 10:00:00 AM Scheduled Provider: Location:[facility] Appointment Type:Urology CALL PAT FT Appointment Date:03/31/2023 11:15:00 AM Scheduled Provider: Location:[facility] Appointment Type:Urology FT Appointment Date:01/22/2024 11:00:00 AM Scheduled Provider: Location:[facility] Appointment Type:FM Medicare Wellness Subsequent Appointment Date:03/14/2024 11:15:00 AM Scheduled Provider:Oni MCKEON MD Location:[facility] Appointment Type:URO Office Visit Diagnostic Tests PendingPSA Total 03/09/[address] [facility] Evaluation + Plan note Future Appointments Appointment Date:01/22/2024 11:00:00 AM Scheduled Provider: Location:[facility] Appointment Type:FM Medicare Wellness Subsequent Appointment Date:03/14/2024 11:15:00 AM Scheduled Provider:Oni MCKEON MD Location:[facility] Appointment Type:URO Office Visit [facility] Evaluation note Diagnosis MGUS (monoclonal gammopathy of unknown significance)- Primary Monoclonal paraproteinemia documented in this encounter [facility] note* Diagnosis B12 deficiency- Primary Other B-complex deficiencies Diffuse large B-cell lymphoma, unspecified body region (HCC) documented in this encounter [facility] note* Diagnosis MGUS (monoclonal gammopathy of unknown significance)- Primary Monoclonal paraproteinemia Macrocytic anemia Unspecified deficiency anemia [facility] Narrative No data available for this section [facility] [place] [facility] Discharge instructions No data available for this section [facility] No data available for this section [facility] Summary Purpose Family History No Family History Records FoundNo Family History Records FoundNo Family History Records FoundNo Family History Records FoundNo Family History Records FoundNo Family History Records Found Advance Directives No Advanced Directives Records FoundNo Advanced Directives Records FoundNo Advanced Directives Records FoundNo Advanced Directives Records FoundNo Advanced Directives Records FoundNo Advanced Directives Records Found Hospital Course Note MR#: [id number] I [facility] Pt. Name: Chiki Juarez Admitted: 06/26/2020 [...] asthma, lymphoma, and hypothyroidism, who transferred to [facility] for evaluation of poss (more content not included)... Additional Source Comments (unrecognized sect ion and content) No Status Records FoundNo Status Records FoundNo Status Records FoundNo Status Records FoundNo Status Records FoundNo Status Records Found INFORMATION SOURCE (unrecogn ized section and content) DATE CREATED AUTHOR 07/16/2020 [facility] DATE CREATED AUTHOR AUTHOR'S ORGANIZ ATION 04/26/2022 [facility] DATE CREATED AUTHOR AUTHOR'S ORGANIZ ATION 07/19/2023 [facility] DATE CREATED AUTHOR AUTHOR'S ORGANIZ ATION 07/30/2023 [facility] DATE CREATED AUTHOR AUTHOR'S ORGANIZ ATION 08/01/2023 [facility] DATE CREATED AUTHOR AUTHOR'S ORGANIZ ATION 08/06/2023 [facility] Source Comments (unrecognize d section and content) In the event this informatio n is protected by the Federal Confidentiality of Alcohol and Drug Abuse Patient Records regulations: The Federal rules restrict any use of the information to criminally investigate or prosecute any alcohol or drug abuse patient.[facility] the event this information is protected by the Federal Confidentiality of Alcohol and Drug Abuse Patient Records regulations: The Federal rules restrict any use of the information to criminally investigate or prosecute any alcohol or drug abuse patient.[facility] the event this information is protected by the Federal Confidentiality of Alcohol and Drug Abuse Patient Records regulations: The Federal rules restrict any use of the information to criminally investigate or prosecute any alcohol or drug abuse patient.[facility] Hospital[facility] the event this information is protected by the [facility] Confidentiality of Alcohol and Drug Abuse Patient Records regulations: The Federal rules restrict any use of the information to criminally investigate or prosecute any alcohol or drug abuse patient.[facility] the event this information is protected by the Federal Confidentiality of Alcohol and Drug Abuse Patient Records regulations: The Federal rules restrict any use of the information to criminally investigate or prosecute any alcohol or drug abuse patient.[facility] Reason for Visit (unrecogniz ed section and content) Reason Comments Prostate Cancer Reason Comments Lab Orders Reason Comments Results Reason Comments Appointment Care Teams (unrecognized sec tion and content) Server Developer Relationship Specialty Start Date End Date Will Sherwood MD [address] [place] [id number] PCP - General 08/01/05 Server Developer Relationship Specialty Start Date End Date Will Sherwood MD [address] [place] [address] PCP - General 08/01/05 Server Developer Relationship Specialty Start Date End Date Will Sherwood MD [address] [place] [address] PCP - General 08/01/05 Server Developer Relationship Specialty Start Date End Date Will Sherwood MD [address] [place] [address] PCP - General 08/01/05 FOR RECORDS PERTAINING [...] BE BASED ON THE PRIMARY CLINICAL RECORDS. [facility] [employer] [facility]. provides no warranty or guarantee of the accuracy or completeness of information in this document.
[2023-08-13 12:53] LABS: Anion Gap 15.1; BUN Creatinine Ratio 13.7; Carbon Dioxide 28.5 mmol/L (21.0-32.0); Chloride 103 mmol/L (98-107); Estimated GFR (African America 54 (>=60); Estimated GFR (Non-African Ame 44 (>=60); Glucose 157 mg/dL (74-106); Potassium 3.6 mmol/L (3.5-5.1); Sodium 143 mmol/L (136-145)
== END 2023-08-13 12:10 | disposition home or self-care (01) ==
LOC: LAB 12:10
PROVIDERS: PCP Family Medicine; Visit Provider Internal Medicine Interventional Cardiology
DX: R06.09 Other forms of dyspnea (principal)
CPT/HCPCS: 36415; 80048

== ENCOUNTER 2023-09-14 13:07 | Outpatient (OUT) | payer MEDICARE, SELFPAY ==
--- OUTSIDE RECORDS SUMMARY | 2023-09-14 13:12 | XMS_ITS | CCD ---
Author Name Unknown Address [address] [place] [address] Organization [facility] Care Team Providers Care Decorator Mannequin Name Role Phone CHANCE CRESCENCIO Referring Unavailable WILL SHERWOOD Primary Care Unavailable MYA BHAKTA Attending Unavailable MYA BHAKAT Admitting Unavailable OK Procedure Practitioner Unavailab CONNOR Herrera Surgeon Unavailable MYA BHAKTA Surgeon Unavailable OK Procedure Practitioner Unavailab WILL Jackson Primary Care [...] MISC, DR HERRERA Admitting Unavailable MISC, DR HRERERA Attending Unavailable MISC, DR HERRERA Admitting Unavailable MISC, DR HERRERA Attending Unavailable JARETT, DR WILL Del Toro Primary Care Unavailable MISC, DR HERRERA Consulting Unavailable JENICRISTÓBAL Consulting Unavailable JENICRISTÓBAL Admitting Unavailable JENICRISTÓBAL Attending Unavailable JARETT, DR WILL Del Toro Primary Care Unavailable SHERWOOD, DR WILL Del Toro Attending Unavailable JARETT, DR WILL Del Toro Primary Care Unavailable JARETT, DR WILL Del Toro Admitting Unavailable JARETT, DR WILL Del Toro Consulting Unavailable REGGIE, DR MORRISON Admitting Unavailable ZIEBER, DR SHAY Sewell Consulting Unavailable REGGIE, DR MORRISON Attending Unavailable JARETT, DR WILL Del Toro Primary Care Unavailable HAY, DR MORRISON Consulting Unavailable MOUKARBEL, DR BREWER Consulting Unavailable JARETT, DR WILL Del Toro [...] Primary Care Physician BERT ACEVEDO Attending Unavailable PITO PATTERSON Primary Care Unavailable TYLER DRAPER Attending Unavailable PITO PATTERSON Primary Care Unavailable Pito Patterson Attending Unavailable Pito Patterson Attending Unavailable MCKEON, Oni R Attending Unavailable MCKEON, Oni R Attending Unavailable MCKEON, Oni R Attending Unavailable MCKEON, Oni R Attending Unavailable MCKEON, Oni R Referring Unavailable MCKEON, Oni R Admitting Unavailable MCKEON, Oni R Admitting Unavailable MCKEON, Oni R Attending Unavailable Corwin, Marlys Valles Attending Unavailable Corwin, Marlys L Admitting Unavailable Corwin, Marlys L Admitting Unavailable Corwin, Marlys Valles Attending Unavailable Pito Patterson Attending Unavailable Corwin, Marlys Valles Attending Unavailable Corwin, Marlys Valles Attending Unavailable Pito Patterson Attending Unavailable Corwin, Marlys Valles Attending Unavailable Pito Patterson Attending Unavailable Pito Patterson Attending Unavailable Pito Patterson Attending Unavailable Pito Patterson Attending Unavailable Corwin, Marlys Valles Attending Unavailable CONNOR CARRERA Referring Unavailable ANASTASIA SINHA Attending Unavailable CONNOR CARRERA Referring Unavailable DANIELLA EASTON Attending Unavailable DANIELLA EASTON Attending Unavailable ANASTASIA SINHA Attending Unavailable Allergies Allergy Classification Reported Allergen(s) Allergy Type Date of Onset Reaction(s) Facility (6 sources) Spironolactone; Translations: [SPIRONOLACTONE] Drug Allergy 09-18-2021 Other: See Comments [facility] Medications Current Medications Medication Drug [...] q4hr, 300 mL, Refill(s) 3, [facility]/pharmacy #[id number], 162, cm, 10/28/22 15:18:00 EDT, Height/Length Dosing, 99.8, kg, 10/28/22 15:18:00 EDT, Weight Dosing Start Date: 12/17/22 Status: Ordered Start: 12-17-2022 albuterol 0.08 3% Inh Kasie 3 mL See Instructions, 150 mL, Refill(s) 0, INHALE 1 VIAL VIA NEBULIZER EVERY 6 HOURS, [facility] STORE [id number], 162, cm, 10/28/22 15:18:00 EDT, Height/Length Dosing, [...] 120 mL, Refills(s) 11, Pharmacy: [facility]/pharmacy #[id number], 162, cm, 10/28/22 15:18:00 EDT, Height/Length [...] 30 cap(s), Refills(s) 0, Pharmacy: [facility]/pharmacy #[id number], 168, cm, 03/09/23 11:04:00 EDT, Height/Length Dosing, 103, kg, 03/09/23 11:04:00 EDT, Weight Dosing Start Date: 03/09/23 Status: Ordered Start: 01-22-2023 take 1 capsule by [facility] once daily at bedtime gabapentin 300 mg Cap 300 mg = 1 cap(s), Oral, Once a day (at bedtime), # 30 cap(s), Refills(s) 0, Pharmacy: [facility]/pharmacy #[id number], 162, cm, 01/22/23 13:19:00 EDT, Height/Length Dosing, 98.3, kg, 01/22/23 13:19:00 EDT, Weight Dosing Start Date: 01/22/23 Status: Ordered ipratropium bromide 0.042 mg/actuat metered dose nasal spray (3 sources) Anticholinergic Start: 03-13-2023 End: 03-07-2024 take 2 spray(s) nasal route twice daily, then take 2 spray(s) nasal route twice daily ipratropium Nasal 0.06% [place] 2 spray(s), Nasal, BID for 90 day(s), 45 mL, Refill(s) 3, PLACE 2 SPRAYS IN EACH NOSTRIL TWO TIMES DAILY., [facility]/pharmacy #[id number], 168, cm, 03/09/23 11:04:00 EDT, Height/Length Dosing, 103, kg, 03/09/23 11:04:00 EDT, Weight Dosing Start Date: 03/13/23 Stop Date: 03/07/24 Status: Ordered Start: 02-20-2023 take 1 dose nasal ro kathryn twice daily, then take 2 spray(s) nasal route twice daily ipratropium Nasal 0.06% [place] 2 spray(s), Nasal, BID, 1 EA, Refill(s) 1, PLACE 2 SPRAYS IN EACH NOSTRIL TWO TIMES DAILY., [facility]/pharmacy #[id number], 162, cm, 01/22/23 13:19:00 EDT, Height/Length Dosing, 98.3, kg, 01/22/23 13:19:00 EDT, Weight Dosing Start Date: 02/20/23 Status: Ordered Start: 01-22-2023 take 1 dose nasal ro kathryn twice daily, then take 2 spray(s) nasal route twice daily ipratropium Nasal 0.06% [place] 2 spray(s), Nasal, BID, 1 EA, Refill(s) 1, PLACE 2 SPRAYS IN EACH NOSTRIL TWO TIMES DAILY., [facility]/pharmacy #[id number], 162, cm, 01/22/23 13:19:00 EDT, Height/Length [...] as prescribed for COPD, [facility] Supply, 162, cm, 01/22/23 [...] 2 tab(s), Refills(s) 0, Pharmacy: [facility]/pharmacy #[id number], 168, cm, 03/09/23 11:04:00 EDT, Height/Length [...] h daily before breakfast. 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 CURRENT USE OF ASPIRIN] Onset: 05-28-2021 Episodic Other aftercare (1 source) 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; Translations: [OTH EXECUTIVE DIRECTOR GLOBAL BRAND MARKETING CURRENT DRUG THERAPY] Onset: 05-28-2021 Episodic Other [...] Test Name Value Interpretation Reference Range Facility Office Visiton 09-09-2023 Follow-up visit [id number] Tremaine Juarez 1945 M Date Provider Department Center 09/09/2023 DANIELLA CARDONA [facility] Family History Problem Relation Age of Onset Stroke Father Family Status - Relation Status Age at Father Level of Service:70581 OK OFFICE/OUTPATIENT ESTABLISHED MOD MDM 30 MIN Normal [facility] Ambulatory Visit Summaryon 0 08-24-2023 Ambulatory Visit Summary CHIKI JUAREZ :1945 Visit Date:08/24/2023 Ambulatory Visit Instructions Your Diagnosis Class 1 obesity due to excess calories in adult Former smoker Chronic diastolic heart failure Pulmonary hypertension Severe obesity MGUS (monoclonal gammopathy of unknown significance) COPD with asthma BMI 34.0-34.9,adult Your Care Team Attending Physician - Pito Patterson MD Primary Care Physician - Pito Patterson MD This Is Your Medications List Misc Prescription (Nebulizer accessory set) albuterol (albuterol 0.083% Inh Kasie 3 mL) aspirin (aspirin 81 mg Oral EC Tab) budesonide (budesonide 0.5 mg/2 mL Inh Susp) calcium-vitamin D cyanocobalamin (Vitamin B12) furosemide (furosemide 40 mg Tab) ipratropium nasal (ipratropium Nasal 0.06% [place]) levothyroxine (levothyroxine 100 mcg (0.1 mg) Tab) metoprolol (metoprolol 25 mg ER Tab) potassium chloride (potassium chloride 10 mEq ER Tab) salmeterol (Serevent Diskus 50 mcg inhalation powder) tiotropium (Spiriva 18 mcg Cap) Procedures Performed Cardiac pacemaker (2019), Transrectal biopsy of prostate using ultrasound (US) guidance (03/10/2019), Cystourethroscopy (03/12/2010), Lymphadenectomy of sentinel lymph node (08/17/2006). Discharge Vitals Temperature (Temporal Artery) 36.4 ?C Heart Rate (Peripheral) 92 Respiratory Rate 22 Blood Pressure 136/84 Height 168 cm Height 66 in Weight 97.4 kg Weight 214.28 lb BMI 34.51 What to do next Scheduled Follow-Up Appointments Thursday 8:00 AM EST With: Yesenia VENTURA, Pito Davidson Where: [facility] [place] Invalid Interpretation Code [address] [place] [address]- \.br \ Thursday 11:15 AM EDT \.br\ With: Oni MCKEON MD\.br\ Where: [facility] Family Medicine Office/Clini c Noteon 08-24-2023 Family Medicine Office/Clinic Note HPI Staff Chiki is a 78 year old male presenting for follow up for motorized wheelchair ELO to do PT eval for ambulation. Patient says he was never contacted for the PT evaluation, order was sent 08/03/23. Seems like he's getting pushed away from getting this done Some days he has trouble going from bedroom to the bathroom and has to stop and rest. Says it's about 50-55 steps from his bedroom to the bathroom. Today it's not too bad of a day. Has a hospital bed in his living room which has become his formal bedroom as he cannot sleep upstairs and can't lie flat to sleep questions/concerns: needs his K+ refilled to [facility]. Then he needs his nebulizer supplies and cpap supplies [facility] in [place] will need printed and faxed to [phone] History of Present Illness Chiki Juarez, a 78-year-old male, is here for a three-week follow-up evaluation. He reports that he has not been contacted by the physical therapy department and would like to reissue the referral for physical therapy. The patient requests a refill of his CPAP supplies, which are typically replaced every 3 months. The original prescription was issued by either Dr. Sherwood or Dr. Gibbons. He has a scheduled appointment with his harpsichord maker on 10/04/2023. He also has an upcoming appointment with his cognos tm1 developer on either 09/08/2023 or 09/09/2023. He is under the care of Dr. Draper for his [facility] and had a consultation with Dr. Draper 2 weeks ago. He reports increased difficulty with his speech, which he believes is a consequence of his stroke. He notes that his speech, swallowing, and possibly his left ear function have been affected. He had no pre-existing swallowing issues prior to the stroke. A swallow study was conducted, and he was informed that both sides were pooling. His ability to spit has been compromised since the stroke, and he occasionally experiences abnormal sensations on the right side of his lip. His speech was relatively clear yesterday. He reports a deterioration in his breathing but denies any congestion. He believes that the nasal spray is effectively managing his sinus condition. He typically contracts an infection around this time in winter. The patient also requests a refill of his potassium supplement. Review of Systems PHQ Score Initial Depression Screen Score: 0 SCORE Physical Exam Vitals & Measurements T: 36.4 ?C(Temporal Artery) HR: 92(Peripheral) RR: 22 BP: 136/84 SpO2: 94% HT: 66 in HT: 168 cm WT: 97.4 kg WT: 214.28 lb BMI: 34.51 General: alert, no acute distress ENMT: oral mucosa moist, no pharyngeal erythema or exudate Cardiovascular: regular rate and rhythm, normal peripheral perfusion Respiratory: diminished breath sounds Extremities: no deformity, no trauma Neurological: difficulty with ambulation; however, patient is not using any ambulation assistance. Assessment/Plan 1. Decreased ambulation status (Z74.09: Other reduced mobility) Patient is going to get referred again to another PT since he did not get called from them the first time that has been placed and we will continue to monitor. 2. Chronic diastolic heart failure (I50.32: Chronic diastolic (congestive) heart failure) Patient is seeing cardiology later this month. No concerns at this time. 3. Pulmonary hypertension (I27.20: Pulmonary hypertension, unspecified) Patient is being seen by pulmonary in [place]. We will continue to monitor. We will reach out to his DME supplier to see which supplies he needs and we will write that prescription. 4. Severe obesity (E66.01: Morbid (severe) obesity due to excess calories) 5. MGUS (monoclonal gammopathy of unknown significance) (D47.2: Monoclonal gammopathy) Patient is seen by Dr. Draper. We will continue to monitor. Reviewed oncology notes. 6. 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 We will continue to monitor. We will call in a COPD rescue pack as needed. 7. BMI 34.0-34.9,adult (Z68.34: Body mass index [BMI] 34.0-34.9, adult) BMI education given. 8. Class 1 obesity due to excess calories in adult (E66.09: Other obesity due to excess calories) Diet and exercise advised. 9. Former smoker (Z87.891: Personal history of nicotine dependence) I encouraged the patient to continue not to smoke. Portions of this record may have been created with voice recognition artificial intelligence software, specifically [employer], [employer] and or [employer]. Substitutions may have occurred due to the inherent limitations of voice recognition and artificial intelligence software. ATTESTATION: Documentation services were performed after patient or guardian consented to allow [employer] to record this visit. JASMINA intranet specialist and provider reviewed before signing. JASMINA: Prachi Mesa. Follow-up No qualifying (more content not included)... Normal [facility] Comment on above: Result Comment: Elec tronically Signed By: Pito Patterson MD\.br\Date and Time Signed: 08/24/23 18:07 EST\.br\Electronically Co-Signed By: Prachi Mesa H\.br\Date and Time Co-Signed: 08/24/23 13:25 EST Physician Orderon 08-24-2023 Physician Order [id number]#1.00TIFF [facility] Echocardiographyon Echocardiography [id number]#1.00TIF F [facility] Consultation Noteon 08-05-20 Consultation Note [id number]#1.00TIF F [facility] Consultation Note [id number]#1.00TIF F [facility] Consultation Noteon 08-04-20 Consultation Note [id number]#1.00TIF F [facility] Physician Referralon 023 Physician Referral [id number]#1.00TI FF [facility] Ambulatory Visit Summaryon 1 10-04-2022 Ambulatory Visit Summary CHIKI JUAREZ Issa :1945 Visit Date:08/03/2023 Ambulatory Visit Instructions Your [...] mg Tab) ipratropium nasal (ipratropium Nasal 0.06% [place]) levothyroxine (levothyroxine 100 mcg (0.1 mg) Tab) [...] Follow-Up Appointments Thursday 10:30 AM EST With: Yesenia VENTURA, Pito Davidson Where: [facility] Invalid Interpretation Code [address] [place] [address]- \.br \ Thursday 11:15 AM EDT \.br\ With: MIKE VENTURA, Oni Sewell\.br\ Where: [facility] Auth for Release of Medical Recordson 08-03-2023 Auth for Release of Medical Records [id number]#1.00TIF F Normal [facility] Family Medicine Office/Clini c Noteon 08-03-2023 [...] not any of his specialists so his harpsichord maker can't do it. Will see him in sep and will do the 600 [address] walk on him. Dr Moukarbel doubled his lasix for awhile and will [...] 2 tab(s), Oral, Daily ipratropium Nasal 0.06% [place], 2 spray(s), Nasal, BID, 3 refills levothyroxine [...] Alcohol 1 (more content not included)... Normal [facility] Comment on above: Result Comment: Elec tronically Signed By: Yesenia VENTURA, Pito Underwood.br\Date and Time Signed: 08/03/23 14:02 EST Patient Educationon 08-03-20 23 Patient Education Nutrition BMI for Adults What [...] numbers. This can be done either in [place] or metric measurements. Note that charts and online BMI calculators are available to help you find your BMI quickly and easily without having to do these calculations yourself. To calculate your BMI in [place] ([place] measurements: 1. Measure your weight in [...] for Disease Control and Prevention: www.cdc.gov ? [place] Heart Association: www.heart.org ? National Heart, Lung, and Blood [place]: www.nhlbi.nih.gov Summary ? Body mass index (BMI) is a number that is calculated from a person's weight and height. ? BMI may help estimate how much of a person's weight is composed of fat. BMI can help identify those who may be at higher risk for certain medical problems. ? BMI can be measured using [place] measurements or metric measurements. ? BMI charts are used to identify whether you are underweight, normal weight, overweight, or obese. This information is not intended to replace advice given to you by your health care provider. Make sure you discuss any questions you have with your health care provider. Document Revised: 04/25/2020 Document Reviewed: 03/02/2020 Playroom Patient Education ? 2022 [employer]. [facility] CNOVSPon 07-30-2023 CNOVSP Visit (SP) Office ([facility]) -------- CHIKI JUAREZ ([id number]) 1945 M Date Time Provider Department 07/30/23 [...] intermittent cough and shortness of breath from bronchitis/bronchiectasi s. No fevers, night sweats, or weight loss. [...] (215 lb (more content not included)... Normal [facility] Office Visiton 07-28-2023 Follow-up visit [id number] Tremaine Juarez 1945 M Date Provider Department Center 07/28/2023 DANIELLA CARDONA [facility] [place] Family History Problem Relation Age of Onset Stroke Father Family Status - Relation Status Age at Father Level of Service:47026 OK OFFICE/OUTPATIENT ESTABLISHED MOD MDM 30-39 MIN Normal [facility] Basic metabolic 2000 panelon 07-23-2023 Anion gap [Moles/Vol] 10 mmol/L Normal 9-18 [facility] Comment on above: Order Comment: Speci men Type: BLOOD SPECIMEN Ordering Facility: [facility] Address: [address] [place] [address] Performed By: #### 2 4321-2 #### [facility] CLIA [id number] [address] [place] [address] Calcium [Mass/Vol] 8.4 mg/dL Low 8.5-10.[address] [facility] Comment on above: Order Comment: Speci men Type: BLOOD SPECIMEN Ordering Facility: [facility] Address: [address] [place] [address] Performed By: #### 2 4321-2 #### [facility] CLIA [id number] [address] [place] [address] Chloride [Moles/Vol] 103 mmol/L Normal 97-105 [facility] Comment on above: Order Comment: Speci men Type: BLOOD SPECIMEN Ordering Facility: [facility] Address: [address] [place] [address] Performed By: #### 2 4321-2 #### [facility] CLIA [id number] [address] [place] [address] CO2 [Moles/Vol] 24 mmol/L Normal 22-30 [facility] Comment on above: Order Comment: Speci men Type: BLOOD SPECIMEN Ordering Facility: [facility] Address: [address] [place] [address] Performed By: #### 2 4321-2 #### [facility] CLIA [id number] [address] [place] [address]51 Creatinine [Mass/Vol] 1.33 mg/dL High 0.73-1.22 [facility] Comment on above: Order Comment: Speci men Type: BLOOD SPECIMEN Ordering Facility: [facility] Address: [address] [place] [address] Performed By: #### 2 4321-2 #### [facility] CLIA [id number] [address] [place] [address] Creatinine and Glomerular filtration rate.predicted panel (S/P/Bld) 55 mL/min/1.73m??? Low >=60 [facility] Comment on above: Order Comment: Speci men Type: BLOOD SPECIMEN Ordering Facility: [facility] Address: [address] [place] [address] Result Comment: Ary mated Glomerular Filtration Rate [...] GFR. Performed By: #### 2 4321-2 #### [facility] CLIA [id number] [address] [place] [address] Glucose [Mass/Vol] 156 mg/dL High 74-[address] [facility] Comment on above: Order Comment: Speceugenia men Type: BLOOD SPECIMEN Ordering Facility: [facility] Address: [address] [place] [address] Result Comment: The [place] Diabetes Association (ADA) provides guidance for cutoff [...] Standards of Medical Care in Diabetes 2016, [place] Diabetes Association. Diabetes Care. 2016.39(Suppl 1). Performed By: #### 2 4321-2 #### [facility] CLIA [id number] [address] [place] [address]191 Potassium [Moles/Vol] 3.7 mmol/L Normal 3.7-5.1 [facility] Comment on above: Order Comment: Liliya hadley Type: BLOOD SPECIMEN Ordering Facility: [facility] Address: [address] [place] [address] Performed By: #### 2 4321-2 #### [facility] CLIA [id number] [address] [place] [address]74 Sodium [Moles/Vol] 137 mmol/L Normal 136-[address] [facility] Comment on above: Order Comment: Liliya hadley Type: BLOOD SPECIMEN Ordering Facility: [facility] Address: [address] [place] [address] Performed By: #### 2 4321-2 #### [facility] CLIA [id number] [address] [place], [place] [address] Urea nitrogen [Mass/Vol] 17 mg/dL Normal 9-24 [facility] Comment on above: Order Comment: Speci men Type: BLOOD SPECIMEN Ordering Facility: [facility] Address: [address] [place] [address] Performed By: #### 2 4321-2 #### [facility] CLIA [id number] [address] [place], [place] [address] CBC W Auto Differential pane l (Bld)on 07-23-2023 Anisocytosis Ql (Bld) Present Normal [facility] Comment on above: Order Comment: Speci men Type: BLOOD SPECIMEN Ordering Facility: [facility] Address: [address] [place] [address] Performed By: #### 5 7021-8 #### [facility] CLIA [id number] [address] [place] [address] LAB CLIA [id number] [address] [place] [address] [place] Basophils (Bld) [#/Vol] 0.00 10*3/uL Normal <0.11 [facility] Comment on above: Order Comment: Speci men Type: BLOOD SPECIMEN Ordering Facility: [facility] Address: [address] [place] [address] Performed By: #### 5 7021-8 #### [facility] CLIA [id number] [address] [place] [address] LAB CLIA [id number] [address] [place] [address] [place] Basophils/100 WBC (Bld) 0.0 % Normal [facility] Comment on above: Order Comment: Speci men Type: BLOOD SPECIMEN Ordering Facility: [facility] Address: [address] [place] [address] Performed By: #### 5 7021-8 #### [facility] CLIA [id number] [address] [place] [address] LAB CLIA [id number] [address] [place] [address] [place] Differential cell count method Nom (Bld) Manual Normal [facility] Comment on above: Order Comment: Speci men Type: BLOOD SPECIMEN Ordering Facility: [facility] Address: [address] [place] [address] Performed By: #### 5 7021-8 #### [facility] CLIA [id number] [address] [place] [address] LAB CLIA [id number] [address] [place] [address] [place] Eosinophils (Bld) [#/Vol] 0.05 10*3/uL Normal <0.46 [facility] Comment on above: Order Comment: Speci men Type: BLOOD SPECIMEN Ordering Facility: [facility] Address: [address] [place] [address] Performed By: #### 5 7021-8 #### [facility] CLIA [id number] [address] [place] [address] LAB CLIA [id number] [address] [place] [address] [place] Eosinophils/100 WBC (Bld) 0.9 % Normal [facility] Comment on above: Order Comment: Speci men Type: BLOOD SPECIMEN Ordering Facility: [facility] Address: [address] [place] [address] Performed By: #### 5 7021-8 #### [facility] CLIA [id number] [address] [place] [address] LAB CLIA [id number] [address] [place] [address] [place] Erythrocyte distribution width (RBC) [Ratio] 15.8 % High 11.5-15.0 [facility] Comment on above: Order Comment: Speci men Type: BLOOD SPECIMEN Ordering Facility: [facility] Address: [address] [place] [address] Performed By: #### 5 7021-8 #### [facility] CLIA [id number] [address] [place] [address] LAB CLIA [id number] [address] [place] [address] [place] Hematocrit (Bld) [Volume fraction] 31.8 % Low 39.0-51.0 [facility] Comment on above: Order Comment: Speci men Type: BLOOD SPECIMEN Ordering Facility: [facility] Address: [address] [place] [address] Performed By: #### 5 7021-8 #### [facility] CLIA [id number] [address] [place] [address] LAB CLIA [id number] [address] [place] [address] [place] Hemoglobin (Bld) [Mass/Vol] 10.0 g/dL Low 13.0-17.0 [facility] Comment on above: Order Comment: Speci men Type: BLOOD SPECIMEN Ordering Facility: [facility] Address: [address] [place] [address] Performed By: #### 5 7021-8 #### [facility] CLIA [id number] [address] [place] [address] LAB CLIA [id number] [address] [place] [address] [place] Lymphocytes (Bld) [#/Vol] 1.26 10*3/uL Normal 1.00-4.00 [facility] Comment on above: Order Comment: Speci men Type: BLOOD SPECIMEN Ordering Facility: [facility] Address: [address] [place] [address] Performed By: #### 5 7021-8 #### [facility] CLIA [id number] [address] LAB CLIA [id number] [address] [place] [address] [place] Lymphocytes/100 WBC (Bld) 21.9 % Normal [facility] Comment on above: Order Comment: Speci men Type: BLOOD SPECIMEN Ordering Facility: [facility] Address: [address] [place] [address] Performed By: #### 5 7021-8 #### [facility] CLIA [id number] [address] [place] [address] LAB CLIA [id number] [address] [place] [address] [place] MCH (RBC) [Entitic mass] 33.0 pg Normal 26.0-34.0 [facility] Comment on above: Order Comment: Speci men Type: BLOOD SPECIMEN Ordering Facility: [facility] Address: [address] [place] [address] Performed By: #### 5 7021-8 #### [facility] CLIA [id number] [address] [place] [address] LAB CLIA [id number] [address] [place] [address] [place] MCHC (RBC) [Mass/Vol] 31.4 g/dL Normal 30.5-36.0 [facility] Comment on above: Order Comment: Speci men Type: BLOOD SPECIMEN Ordering Facility: [facility] Address: [address] [place] [address] Performed By: #### 5 7021-8 #### [facility] CLIA [id number] [address] [place] [address] LAB CLIA [id number] [address] [place] [address] [place] MCV (RBC) [Entitic vol] 105.0 fL High 80.0-100.0 [facility] Comment on above: Order Comment: Speci men Type: BLOOD SPECIMEN Ordering Facility: [facility] Address: [address] [place], [place] [address] [place] [id number] Performed By: #### 5 7021-8 #### [facility] CLIA [id number] [address] [place] [address] LAB CLIA [id number] [facility] [place] [id number] [place] Metamyelocytes/100 WBC (Bld) 0.9 % Normal [facility] Comment on above: Order Comment: Speci men Type: BLOOD SPECIMEN Ordering Facility: [facility] Address: [address] [place] [address] Performed By: #### 5 7021-8 #### [facility] CLIA [id number] [address] [place] [address] LAB CLIA [id number] [address] [place] [address] [place] Monocytes (Bld) [#/Vol] 2.08 10*3/uL High <0.87 [facility] Comment on above: Order Comment: Speci men Type: BLOOD SPECIMEN Ordering Facility: [facility] Address: [address] [place] [address] Performed By: #### 5 7021-8 #### [facility] CLIA [id number] [address] [place] [address] LAB CLIA [id number] [address] [place], [place] [address] [place] Monocytes/100 WBC (Bld) 36.0 % Normal [facility] Comment on above: Order Comment: Speci men Type: BLOOD SPECIMEN Ordering Facility: [facility] Address: [address] [place] [address] Performed By: #### 5 7021-8 #### [facility] CLIA [id number] [address] [place] [address] LAB CLIA [id number] [address] [place], [place] [address] [place] MYELO% 0.9 % Normal [facility] Comment on above: Order Comment: Speci men Type: BLOOD SPECIMEN Ordering Facility: [facility] Address: [address] [place] [address] Performed By: #### 5 7021-8 #### [facility]BDIRAHMAN [facility] CLIA [id number] [address] [place] [address] LAB CLIA [id number] [address] [place] [address] [place] Neutrophils (Bld) [#/Vol] 2.27 10*3/uL Normal 1.45-7.50 [facility] Comment on above: Order Comment: Speci men Type: BLOOD SPECIMEN Ordering Facility: [facility] Address: [address] [place] [address] Performed By: #### 5 7021-8 #### [facility] CLIA [id number] [address] [place] [address] LAB CLIA [id number] [address] [place] [address] [place] Neutrophils/100 WBC (Bld) 39.4 % Normal [facility] Comment on above: Order Comment: Speci men Type: BLOOD SPECIMEN Ordering Facility: [facility] Address: [address] [place] [address] Performed By: #### 5 7021-8 #### [facility] CLIA [id number] [address] [place] [address] LAB CLIA [id number] [address] [place] [address] [place] Nucleated RBC (Bld) [#/Vol] 10*3/uL Normal <0.01 [facility] Comment on above: Order Comment: Speci men Type: BLOOD SPECIMEN Ordering Facility: [facility] Address: [address] [place] [address] Performed By: #### 5 7021-8 #### [facility] CLIA [id number] [address] [place] [address] LAB CLIA [id number] [address] [place] [address] [place] Nucleated RBC/100 WBC (Bld) [Ratio] 0.0 /100 WBC Normal [facility] Comment on above: Order Comment: Speci men Type: BLOOD SPECIMEN Ordering Facility: [facility] Address: [address] [place] [address] Performed By: #### 5 7021-8 #### [facility] CLIA [id number] [address] [place] [address] LAB CLIA [id number] [address] [place] [address] [place] Ovalocytes LM Ql (Bld) Few Normal [facility] Comment on above: Order Comment: Speci men Type: BLOOD SPECIMEN Ordering Facility: [facility] Address: [address] [place] [address] Performed By: #### 5 7021-8 #### [facility] CLIA [id number] [address] [place] [address] LAB CLIA [id number] [address] [place] [address] [place] Platelet mean volume (Bld) [Entitic vol] 10.1 fL Normal 9.0-12.7 [facility] Comment on above: Order Comment: Speci men Type: BLOOD SPECIMEN Ordering Facility: [facility] Address: [address] [place] [address] Performed By: #### 5 7021-8 #### [facility] CLIA [id number] [address] [place] [address] LAB CLIA [id number] [address] [place] [address] [place] Platelets (Bld) [#/Vol] 179 10*3/uL Normal 150-400 [facility] Comment on above: Order Comment: Speci men Type: BLOOD SPECIMEN Ordering Facility: [facility] Address: [address] [place] [address] Performed By: #### 5 7021-8 #### [facility] CLIA [id number] [address] [place] [address] LAB CLIA [id number] [address] [place] [address] [place] Platelets Estimate (Bld) [#/Vol] Adequate Normal [facility] Comment on above: Order Comment: Speci men Type: BLOOD SPECIMEN Ordering Facility: [facility] Address: [address] [place] [address] Performed By: #### 5 7021-8 #### [facility] CLIA [id number] [address] [place] [address] LAB CLIA [id number] [address] [place] [address] [place] Polychromasia LM Ql (Bld) Slight Normal [facility] Comment on above: Order Comment: Speci men Type: BLOOD SPECIMEN Ordering Facility: [facility] Address: [address] [place] [address] Performed By: #### 5 7021-8 #### [facility] CLIA [id number] [address] [place] [address] LAB CLIA [id number] [address] [place] [address] [place] RBC (Bld) [#/Vol] 3.03 10*6/uL Low 4.20-6.00 [facility] Comment on above: Order Comment: Speci men Type: BLOOD SPECIMEN Ordering Facility: [facility] Address: [address] [place] [address] Performed By: #### 5 7021-8 #### [facility] CLIA [id number] [address] [place] [address] LAB CLIA [id number] [address] [place] [address] [place] RED CELL MORPH Reviewed: see result s of individual morphologies Normal [facility] Comment on above: Order Comment: Speci men Type: BLOOD SPECIMEN Ordering Facility: [facility] Address: [address] [place] [address] Performed By: #### 5 7021-8 #### [facility] CLIA [id number] [address] [place] [address] LAB CLIA [id number] [address] [place] [address] [place] WBC (Bld) [#/Vol] 5.77 10*3/uL Normal 3.70-11.00 [facility] Comment on above: Order Comment: Speci men Type: BLOOD SPECIMEN Ordering Facility: [facility] Address: [address] [place] [address] Performed By: #### 5 7021-8 #### [facility] CLIA [id number] [address] [place] [address] LAB CLIA [id number] [address] [place] [address] [place] WBC Left Shift Ql (Bld) Present Normal [facility] Comment on above: Order Comment: Speci men Type: BLOOD SPECIMEN Ordering Facility: [facility] Address: [address] [place] [address] Performed By: #### 5 7021-8 #### [facility] CLIA [id number] [address] [place] [address] LAB CLIA [id number] [address] [place] [address] [place] IMMUNOFIXATION SCREEN, SERUM on 07-23-2023 INTERPRETATION (MPA) Atypical restricted bands are present in the IgG and lambda regions. Consistent with IgG lambda monoclonal gammopathy. Normal [facility] Comment on above: Order Comment: Speci men Type: BLOOD SPECIMEN Ordering Facility: [facility] Address: [address] [place] [address] Performed By: #### I [facility] #### [facility] CLIA [id number] [address] [place] [address] [place] MPA RESULT M protein is present. Abnormal No M p rotein is identified. [facility] Comment on above: Order Comment: Speci men Type: BLOOD SPECIMEN Ordering Facility: [facility] Address: [address] [place] [address] Performed By: #### I FESC #### [facility] CLIA [id number] [facility] [address] [place] STAFF REVIEW (MPA) Reviewed by Fran Boyd MD, Ph.D ([id number]) Normal [facility] Comment on above: Order Comment: Speci men Type: BLOOD SPECIMEN Ordering Facility: [facility] Address: [address] [place] [address] Performed By: #### I FESC #### [facility] CLIA [id number] [address] [place] [address] [place] IMMUNOGLOBULINS GAMon 2022 IgA [Mass/Vol] 72 mg/dL Normal 70-400 [facility] Comment on above: Order Comment: Speci men Type: BLOOD SPECIMEN Ordering Facility: [facility] Address: [address] [place] [address] Performed By: #### S ERIMM #### [facility] CLIA [id number] [address] [place] [address] [place] IgG [Mass/Vol] 777 mg/dL Normal 700-1600 [facility] Comment on above: Order Comment: Speci men Type: BLOOD SPECIMEN Ordering Facility: [facility] Address: [address] [place] [address] Performed By: #### S ERIMM #### [facility] CLIA [id number] [address] [place] [address] [place] IgM [Mass/Vol] 64 mg/dL Normal 40-230 [facility] Comment on above: Order Comment: Speci men Type: BLOOD SPECIMEN Ordering Facility: [facility] Address: [address] [place] [address] Performed By: #### S ERIMM #### [facility] CLIA [id number] [address] [place] [address] [place] KAPPA/ARDON,FREE,SERon 2022 Immunoglobulin light chains.kappa.free (S) [Mass/Vol] 29.6 mg/L High 3.3-19.4 [facility] Comment on above: Order Comment: [facility] Type: BLOOD SPECIMEN Ordering Facility: [facility] Address: [address] [place] [address] Result Comment: Rare ly, increased serum free light chains levels may not be detected or accurately quantified due to prozone phenomenon or in high viscosity samples using this immunoturbidimetric assay. Correlation with other laboratory results and clinical findings is recommended. The [place] Free Light Chain was performed using the Binding Site Optilite immunoturbidimetric method. Result obtained with different assay methods or kits cannot be used interchangeably. Performed By: #### K LFRS #### [facility] CLIA [id number] [address] [place] [address] [place] Immunoglobulin light chains.kappa/Immunogl obulin light chains.lambda (S) [Mass ratio] 1.86 High 0.26-1.65 [facility] Comment on above: Order Comment: Speci men Type: BLOOD SPECIMEN Ordering Facility: [facility] Address: [address] [place] [address] Performed By: #### K LFRS #### [facility] CLIA [id number] [address] [place] [address] [place] Immunoglobulin light chains.lambda.free [Mass/Vol] 15.9 mg/L Normal 5.7-26.3 [facility] Comment on above: Order Comment: Speci men Type: BLOOD SPECIMEN Ordering Facility: [facility] Address: [address] [place] [address] Result Comment: Rare ly, increased serum free [...] interchangeably. Performed By: #### K LFRS #### [facility] CLIA [id number] [facility] [place] [address] [place] PROTEIN ELECTROPHORESIS SERU M WITH CARSON (P)on 07-23-2023 Albumin [Mass/Vol] 2.67 g/dL Low 3.43-5.[address] [facility] Comment on above: Order Comment: Speci men Type: BLOOD SPECIMEN Ordering Facility: [facility] Address: [address] [place] [address] Performed By: #### L [id number] #### [facility] CLIA [id number] [address] [place] [address] [place] Alpha 1 globulin Elph [Mass/Vol] 0.54 g/dL High 0.18-0.43 [facility] Comment on above: Order Comment: Speci men Type: BLOOD SPECIMEN Ordering Facility: [facility] Address: [address] [place] [address] Performed By: #### L [id number] #### [facility] CLIA [id number] [address] [place] [address] [place] Alpha 2 globulin Elph [Mass/Vol] 0.94 g/dL Normal 0.42-0.98 [facility] Comment on above: Order Comment: Speci men Type: BLOOD SPECIMEN Ordering Facility: [facility] Address: [address] [place] [address] Performed By: #### L [id number] #### [facility] CLIA [id number] [address] [place] [address] [place] Beta globulin Elph [Mass/Vol] 0.65 g/dL Normal 0.61-1.17 [facility] Comment on above: Order Comment: Speci men Type: BLOOD SPECIMEN Ordering Facility: [facility] Address: [address] [place] [address] Performed By: #### L [id number] #### [facility] CLIA [id number] [facility] [place] [address] [place] COMMENT (SERUM PROT ELECTRO) Monoclonal Protein analysis (immunofixation) is not indicated. Normal [facility] Comment on above: Order Comment: Speci men Type: BLOOD SPECIMEN Ordering Facility: [facility] Address: [address] [place] [address] Performed By: #### L [id number] #### [facility] CLIA [id number] [address] [place] [address] [place] Gamma globulin Elph [Mass/Vol] 0.71 g/dL Normal 0.53-1.51 [facility] Comment on above: Order Comment: Speci men Type: BLOOD SPECIMEN Ordering Facility: [facility] Address: [address] [place] [address] Performed By: #### L [id number] #### [facility] CLIA [id number] [address] [place] [address] [place] INTERPRETATION COMMENT FOR PROTEIN ELECTROPHORESIS See separate immunofixation report for characterization of monoclonal gammopathy. Normal [facility] Comment on above: Order Comment: Speci men Type: BLOOD SPECIMEN Ordering Facility: [facility] Address: [address] [place] [address] Performed By: #### L [id number] #### [facility] CLIA [id number] [facility] [place] [address] [place] M-PROTEIN LOCATION Beta Fraction 1 [facility] Comment on above: Order Comment: Speci men Type: BLOOD SPECIMEN Ordering Facility: [facility] Address: [address] [place] [address] Performed By: #### L [id number] #### [facility] CLIA [id number] [address] [place] [address] [place] Protein Fractions [Interp] An M protein is identified on protein electrophoresis. Abnormal No definitive M protein is identified on protein electrophore sis. [facility] Comment on above: Order Comment: Speci men Type: BLOOD SPECIMEN Ordering Facility: [facility] Address: [address] [place] [address] Performed By: #### L [id number] #### [facility] CLIA [id number] [address] [place] [address] [place] Protein.monoclonal Elph [Mass/Vol] 0.20 g/dL High <=0.00 [facility] Comment on above: Order Comment: Speci men Type: BLOOD SPECIMEN Ordering Facility: [facility] Address: [address] [place] [address] Performed By: #### L [id number] #### [facility] CLIA [id number] [address] [place] [address] [place] SPE STAFF REVIEW Reviewed by Fran Boyd MD, Ph.D ([id number]) Normal [facility] Comment on above: Order Comment: Speci men Type: BLOOD SPECIMEN Ordering Facility: [facility] Address: [address] [place] [address] Performed By: #### L [id number] #### [facility] CLIA [id number] [address] [place] [address] [place] Prot SerPl-mCncon 07-23-2023 Protein [Mass/Vol] 5.5 g/dL Low 6.3-8.[address] [facility] Comment on above: Order Comment: Speci men Type: BLOOD SPECIMEN Ordering Facility: [facility] Address: [address] [place] [address] Performed By: #### 2 885-2 #### [facility] CLIA [id number] [address] [place] [address] [place] Immunization Recordson 07-06 Immunization Records [id number] [facility] RAD - CT Reporton 06-18-2023 RAD - CT Report [id number]#[id number] F Normal [facility] Reminderson 06-09-2023 Reminders - From: Solange Broussard To: EU - Recalls Mckeon; Sent: 06/09/2023 16:03:24 EDT Show up: 01/16/2024 16:03:00 EDT Subject: renal US Due Date/Time: 02/01/2024 16:03:00 EDT Reminder/Recall Patient needs renal US prior to February 2024 appt [facility] Ambulatory Visit Summaryon 1 Ambulatory Visit Summary ALAINA CHIKI Parsons :1945 Visit Date:05/28/2023 Ambulatory Visit Instructions Your Diagnosis Severe obesity Chronic diastolic heart failure Pulmonary hypertension BMI 35.0-35.9,adult Class 1 obesity due to excess calories in adult Your Care Team Attending Physician - Pito Patterson MD. Primary Care Physician - Pito Patterson MD. This Is Your Medications List Misc Prescription (Nebulizer accessory set) albuterol (albuterol 0.083% Inh Kasie 3 mL) albuterol (albuterol 0.083% Inh Kasie 3 mL) amoxicillin (amoxicillin 500 mg Cap) aspirin (aspirin 81 mg Oral EC Tab) budesonide (budesonide 0.5 mg/2 mL Inh Susp) calcium-vitamin D cyanocobalamin (Vitamin B12) furosemide (furosemide 40 mg Tab) gabapentin (gabapentin 300 mg Cap) ipratropium nasal (ipratropium Nasal 0.06% [place]) levothyroxine (levothyroxine 100 mcg (0.1 mg) Tab) [...] PM EST With: Pito Patterson MD Where: [facility] Invalid Interpretation Code [address] [place] [address]- \.br \ Thursday 11:15 AM EDT \.br\ With: Oni MCKEON MD\.br\ Where: [facility] Ambulatory Visit Summary ALAINA CHIKI Parsons :1945 Visit Date:05/28/2023 Ambulatory Visit Instructions Your Diagnosis Severe obesity Chronic diastolic heart failure Pulmonary hypertension BMI 35.0-35.9,adult Class 1 obesity due to excess calories in adult Your Care Team Attending Physician - Pito Patterson MD Primary Care Physician - Pito Patterson MD This Is Your Medications List [facility] Prescription (Nebulizer accessory set) albuterol (albuterol 0.083% Inh Kasie 3 mL) albuterol (albuterol 0.083% Inh Kasie 3 mL) amoxicillin (amoxicillin 500 mg Cap) aspirin (aspirin 81 mg Oral EC Tab) budesonide (budesonide 0.5 mg/2 mL Inh Susp) calcium-vitamin D cyanocobalamin (Vitamin B12) furosemide (furosemide 40 mg Tab) gabapentin (gabapentin 300 mg Cap) ipratropium nasal (ipratropium Nasal 0.06% [place]) levothyroxine (levothyroxine 100 mcg (0.1 mg) Tab) [...] Follow-Up Appointments Thursday 1:20 PM EST With: Yesenia VENTURA, Pito Davidson Where: [facility] Invalid Interpretation Code [address] [place] [address]- \.br \ Thursday 11:15 AM EDT \.br\ With: Oni MCKEON MD\.br\ Where: [facility] Medicine Office/Clini c Noteon 05-28-2023 Family Medicine Office/Clinic Note HPI Staff Chiki is a 78 year old male presenting to discuss getting a motorized wheelchair or scooter Says he cannot breathe to walk, can't go to football games and has grandchildren in sports or the fair or shopping, if the stores have motorized carts he's okay 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 Normal [facility] Comment on above: Result Comment: Elec tronically Signed By: Yesenia VENTURA, Pito Davidson\.br\Date and Time Signed: 05/28/23 [...] numbers. This can be done either in [place] or metric measurements. Note that charts and online BMI calculators are available to help you find your BMI quickly and easily without having to do these calculations yourself. To calculate your BMI in [place] measurements: 1. Measure your weight in [...] for Disease Control and Prevention: www.cdc.gov ? [place] Heart Association: www.heart.org ? National Heart, Lung, and Blood [place]: www.nhlbi.nih.gov Summary ? Body mass index (BMI) is a number that is calculated from a person's weight and height. ? BMI may help estimate how much of a person's weight is composed of fat. BMI can help identify those who may be at higher risk for certain medical problems. ? BMI can be measured using [place] measurements or metric measurements. ? BMI charts are used to identify whether you are underweight, normal weight, overweight, or obese. This information is not intended to replace advice given to you by your health care provider. Make sure you discuss any questions you have with your health care provider. Document Revised: 04/25/2020 Document Reviewed: 03/02/2020 [employer] Patient Education ? 2022 [employer]. [facility] Consultation Noteon 05-25-20 23 Consultation Note [id number] FF [facility] Office Visiton 05-21-2023 Follow-up visit [id number] Tremaine Juarez 1945 M Date Provider Department Center 05/21/2023 [facility] Family History Problem Relation Age of Onset Stroke Father Family Status - Relation Status Age at Father Level of Service:40684 OK OFFICE/OUTPATIENT ESTABLISHED LOW MDM 20-29 MIN Reason for Visit and Comments: Congestive Heart Failure [127] NSVT [Other] - AV block s/p PPM [Other] Normal [facility] Auth for Release of Medical Recordson 05-12-2023 Auth for Release of Medical Records [id number]#1.00CD: 127 Normal [facility] Consent for Flu Vaccineon Consent for Flu Vaccine [id number]#1.00CD:1 27 Normal [facility] Ambulatory Visit Summaryon 0 05-11-2023 Ambulatory [...] mg Tab) ipratropium nasal (ipratropium Nasal 0.06% [place]) levothyroxine (levothyroxine 100 mcg (0.1 mg) Tab) [...] Follow-Up Appointments Thursday 1:20 PM EST With: Yesenia VENTURA, Pito Davidson Where: [facility] Invalid Interpretation Code [address] [place] [address]- \.br \ Thursday 11:15 AM EDT \.br\ With: MIKE VENTURA, Oni Sewell\.br\ Where: [facility] Auth for Release of Medical Recordson 05-11-2023 Auth for Release of Medical Records [id number]#1.00CD: 127 Normal [facility] Medicine Office/Clini c Noteon 05-11-2023 Family Medicine [...] is bad will be seeing ENT in [facility] for this Eye itching/watering: yes when he [...] 90 cap(s), Refills(s) 1, Pharmacy: [facility]/pharmacy #[id number], 168, cm, 05/11/23 13:29:00 EDT, Height/Length [...] 90 cap(s), Refills(s) 1, Pharmacy: [facility]/pharmacy #[id number], 168, cm, 05/11/23 13:29:00 EDT, Height/Length Dosing, 99.5, kg, 05/11/23 13:29:00 EDT, Weight Dosing Orders: amoxicillin, 500 mg = 1 cap(s), Oral, Daily, TAKE 1 CAPSULE BY MOUTH EVERY DAY, # 30 cap(s), Refills(s) 0, Pharmacy: [facility]/pharmacy #[id number], 168, cm, 05/11/23 13:29:00 EDT, Height/Length [...] mL, NEB (more content not included)... Normal [facility] Comment on above: Result Comment: Elec tronically Signed By: Yesenia VENTURA, Pito Davidson\.br\Date and Time Signed: 05/11/23 14:05 EDT Patient [...] Follow these instructions at home: ? Take crnu-mpu-midgfau and prescription medicines only as told by [...] provider. Document Revised: 08/05/2022 Document Reviewed: 08/05/2022 [employer] Patient Education ? 2022 [employer] Pulmonary Medicine Chronic Obstructive Pulmonary Disease Chronic obstructive pulmonary disease (COPD) is a long-term (chronic) condition that affects the lungs. COPD is a general term that can be used to describe many different lung problems that cause lung inflammation and limit airflow, including chronic bronchitis and emphysema. If you h (more content not included)... [facility] Physician Referralon 023 Physician Referral [id number]#1.00CD :127 [facility] RAD - CT Reporton 04-03-[address] RAD - CT Report [id number]#1.00CD: 127 [facility] RAD - CT Report [id number]#1.00CD: 127 [facility] Consent for Procedure/Surger yon 03-31-2023 Consent for Procedure/Surgery [id number] :127 [facility] Consent for Treatmenton 03-17 Consent for Treatment [id number]#1.00CD: 127 [facility] IntraOperative Documentson 0 03-31-2023 IntraOperative Documents [id number]#1.00CD :127 [facility] Main OR Intraoperative Recor don 03-31-2023 Main OR Intraoperative Record IntraOp Document Type FTURO Summary Primary Physician: Oni MCKEON MD Finalized Date/Time: 03/31/23 11:56:20 Pt. Name: CHIKI JUAREZ/Sex: 1945 Male Med Rec #: [id number] Physician: Oni MCKEON MD Financial #: [id number] Pt. Type: O Room/Bed: / Admit/Disch: 03/31/23 10:36:36 - Institution: Case Times FTURO Entry 1 Patient Times In Room 03/31/23 11:52:00 Out Room 03/31/23 12:00:00 Procedure Times Start 03/31/23 11:53:00 Stop 03/31/23 11:56:00 Anesthesia Times Last Modified By: Sanchez HANCOCK, Niki Monk 03/31/23 11:56:15 Case Attendance FTURO Entry 1 Entry 2 Entry 3 Case Attendee MIKE VENTURA, Oni Bradford RN, Niki Toney CST, Maria Elena Kemp Role Performed Surgeon - Primary Helmet Hat Sweatband Puncher - Primary Scrub - Primary Time In 03/31/23 11:52:00 03/31/23 11:52:00 03/31/23 11:52:00 Time Out 03/31/23 12:00:00 03/31/23 12:00:00 03/31/23 12:00:00 Procedure CYSTOSCOPY LOCAL(.) CYSTOSCOPY LOCAL(.) CYSTOSCOPY LOCAL(.) Comments Last Modified By: Sanchez HANCOCK, Niki Bradford RN, Niki Bradford RN, Niki Monk 03/31/23 11:56:17 03/31/23 11:56:17 03/31/23 11:56:17 Surgical [...] (If Participants Niki Bradford RN, Applicable) Toney JOHNNYMaria Elena Time Out Complete 03/31/23 11:53:00 Allergies Reviewed? Yes Allergies Reviewed Self/Patient With Body Position Supine Prep Area PENIS Prep Agents Betadine Solution Skin. Condition Intact, Ocean, Warm, and Dry Additional None Specimens Collected [...] By: Niki Bradford RN 03/31/23 11:56 Normal [facility] Main OR Preoperative Recordo n 03-31-2023 Main OR Preoperative Record Holding Area Document Type FTURO Summary Primary Physician: Oni MCKEON MD Finalized Date/Time: 03/31/23 11:20:59 Pt. Name: CHIKI JUAREZ/Sex: 1945 Male Med Rec #: [id number] Physician: Oni MCKEON MD Financial #: [id number] Pt. Type: O Room/Bed: / Admit/Disch: 03/31/23 [...] SHALINI Koo RN, Ruthann 03/31/23 11:20 Normal [facility] Operative Reporton Operative Report Patient: BRENDA [...] with antibiotic coverage, Follow up arranged. Normal [facility] Comment on above: Result Comment: Elec tronically Signed By: MIKE VENTURA, Oni HdezDate and Time Signed: 03/31/23 12:00 EDT Outpatient Surgery Discharge Instructionon 03-31-2023 Outpatient Surgery Discharge Instruction [id number]#1.00CD :127 Normal [facility] RAD - MISCon 03-30-2023 RAD - MISC [id number]#1.00CD: 127 Normal [facility] RAD - MISCon 03-24-2023 RAD - MISC [id number]: 127 Normal [facility] RAD - Ultrasound Reporton RAD - Ultrasound Report [id number]#1.00CD: 127 [facility] RAD - Ultrasound Reporton RAD - Ultrasound Report [id number]#1.00CD: 127 [facility] RAD - Ultrasound Report [id number]: 127 Normal [facility] Insurance Correspondenceon 0 03-13-2023 Insurance Correspondence [id number] :127 [facility] Urine Cytology ([facility])on 03-12-2023 Urine Cytology Diagnosis Info Invalid Interpretation Code [facility] Comment on above: Result Comment: A:Ur ine,Urine:Voided Interpretation - MicroScopic Description - Adequacy - Gross Description Site ID:A color V. Light Yellow fixative Alcohol Specimen designated Urine received in alcohol preservative and labeled with the patient?s name, consists of 90ml clear v. light yellow fluid. Electronically signed by : on: 03/12/2023 13:24:22 Performed By: #### 1 [id number] ####[facility] [address] [place] [address] Ambulatory Visit Summaryon 0 03-09-2023 Ambulatory Visit Summary CHIKI JUAREZ :1945 Visit Date:03/09/2023 Ambulatory Visit Instructions Your Diagnosis History of prostate cancer BPH with urinary obstruction Weak urine stream Microscopic hematuria Tests Performed Urnls Dip Stick Auto w/o Microscopy POC 86750 US Renal -- Results Pending -- Please visit your patient portal for your results or contact your primary care physician. Your Care Team Attending Physician - MIKE VENTURA, Oni Sewell Primary Care Physician - Yesenia VENTURA, Pito Davidson This Is Your Medications List Contact prescribing physician if questions or concerns Misc Prescription (Nebulizer accessory set) albuterol (albuterol 0.083% Inh Kasie 3 mL) albuterol (albuterol 0.083% Inh Kasie 3 mL) budesonide (budesonide 0.5 mg/2 mL Inh Susp) calcium-vitamin D cyanocobalamin (Vitamin B12) furosemide (furosemide 40 mg Tab) gabapentin (gabapentin 300 mg Cap) ipratropium nasal (ipratropium Nasal 0.06% [place]) levothyroxine (levothyroxine 100 mcg (0.1 mg) Tab) [...] Follow-Up Appointments Thursday 11:00 AM EDT Where: [facility] Patient Educationon 03-09-20 23 Patient Education Urology [...] Follow these instructions at home: ? Take xbpp-gyw-fdjrljk and prescription medicines only as told by [...] the medicine (more content not included)... Normal [facility] Urine Cytology ([facility])on 0 03-09-2023 Method of Extraction Voided Normal [facility] Comment on above: Performed By: #### 1 [id number] ####[facility] [address] [place] [address] Number of Jars 1 Invalid Interpretation Code [facility] Comment on above: Performed By: #### 1 [id number] ####[facility] [address] [place] [address] Specimen Urine Normal [facility] Comment on above: Performed By: #### 1 [id number] ####[facility] [address] [place] [address] Type of Service Technical Only Normal Fi [facility] Comment on above: Performed By: #### 1 [id number] ####[facility] [address] [place] [address] Urology Office/Clinic Noteon 03-09-2023 Urology Office/Clinic Note [...] prostate) S/p EBRT 06/2019. Pt had a [place] of 4+3=7. Pt had radiation therapy through [...] Local anesthesia. Follow-up With When Contact Information Oni MCKEON MD, URL [facility] [address], [place] [address]- [phone] Additional Instructions: schedule cysto and renal US 1 yr w/ PSA Patient Education Benign Prostatic Hyperplasia I, Nettie Wolff, personally scribed for Dr. Mckeon on 03/09/2023 12:06:57. . Documentation recorded by the scribe, Nettie oWlff, accurately reflects the services(s) I performed and [...] NEB, q4hr, (more content not included)... Normal [facility] Comment on above: Result Comment: Elec tronically Signed By: Oni MCKEON MD\.br\Date and Time Signed: 03/09/23 12:08 EDT\.br\Electronically Co-Signed By: Nettie Wolff\.br\Date and Time Co-Signed: 03/09/23 12:07 EDT Retail - Clinical Noteon Retail - Clinical Note [id number]: 127 Normal [facility] T3 Freeon 01-28-2023 Free T3 [Mass/Vol] 2.0 pg/mL Invalid Interpretation Code 2.0-4.4 [facility] Comment on above: Result Comment: Perf ormed at: [facility] [address] [id number] PhD Sahra Robledo Performed By: #### 2 780729, 02319968, 87550940, 5275895, 7943458, 4492001, 077083427, 5597493, 3731422 ####[facility] [address] [place] [address] Auto Diffon 01-26-2023 Basophils/100 WBC (Bld) 0.3 % Normal 0.0-2.0 [facility] Comment on above: Order Comment: Order Added by Discern Expert. Performed By: #### 2 375391, 79147859, 26794560, 2880748, 4183266, 8800652, 405814086, 1262543, 6554144 ####[facility] [address] [place] [address] Basophils/Leukocytes Auto (Bld) [Pure # fraction] 0.0 E9/L Normal 0.0-0.2 [facility] Comment on above: Order Comment: Order Added by Discern Expert. Performed By: #### 2 179338, 12618791, 32350310, 5207954, 7045180, 7966454, 784730862, 4812077, 4550593 ####[facility] [address] [place] [address] Eosinophils/100 WBC (Bld) 1.0 % Normal 0.0-8.0 [facility] Comment on above: Order Comment: Order Added by Discern Expert. Performed By: #### 2 662206, 69172125, 22335113, 9626728, 3799067, 3241447, 415934541, 0174149, 8594301 ####[facility] [address] [place] [address] Eosinophils/Leukocyte s Auto (Bld) [Pure # fraction] 0.0 E9/L Normal 0.0-0.5 [facility] Comment on above: Order Comment: Order Added by Discern Expert. Performed By: #### 2 047990, 17602895, 22093777, 2802466, 5748148, 4344510, 851515809, 4500074, 6704940 ####[address] [place] [address] Lymphocytes/100 WBC (Bld) 19.4 % Normal 14.0-50.0 [facility] Comment on above: Order Comment: Order Added by Discern Expert. Performed By: #### 2 573308, 31010125, 62453430, 6370420, 5530560, 7779343, 559357478, 0541201, 4916784 ####[address] [place] [address] Lymphocytes/Leukocyte s Auto (Bld) [Pure # fraction] 0.8 E9/L Low 1.0-4.0 [facility] Comment on above: Order Comment: Order Added by Discern Expert. Performed By: #### 2 901204, 30792036, 80632368, 6959084, 8123590, 2780602, 847932078, 9340478, 2546770 ####[address] [place] [address] Monocytes/100 WBC (Bld) 34.7 % High 4.0-14.0 [facility] Comment on above: Order Comment: Order Added by Discern Expert. Performed By: #### 2 964803, 99108563, 62696073, 9423688, 1195450, 4172492, 375087548, 1334369, 8591240 ####[address] [place] [address] Monocytes/Leukocytes Auto (Bld) [Pure # fraction] 1.4 E9/L High 0.2-1.0 [facility] Comment on above: Order Comment: Order Added by Discern Expert. Performed By: #### 2 350547, 54755879, 96259420, 0387661, 1680924, 0341951, 179726060, 7095495, 3746545 ####[facility] [address] [place] [address] Neutrophils/100 WBC (Bld) 44.6 % Normal 36.0-75.0 [facility] Comment on above: Order Comment: Order Added by Discern Expert. Performed By: #### 2 099666, 68575873, 98310630, 2865126, 4441654, 0153004, 438966804, 3473424, 8672781 ####[facility] [address] [place] [address] Neutrophils/Leukocyte s Auto (Bld) [Pure # fraction] 1.7 E9/L Low 2.0-7.5 [facility] Comment on above: Order Comment: Order Added by Discern Expert. Performed By: #### 2 046287, 58985682, 90946493, 9322897, 4160795, 8732867, 364267023, 0838791, 9646858 ####[address] [place] [address] CBC w/ Auto Diffon 3 Erythrocyte distribution width (RBC) [Ratio] 15.8 % High 10.9-14.2 [facility] Comment on above: Performed By: #### 2 042335, 23365357, 33046929, 3366714, 7680810, 4469129, 708342663, 1506277, 6383354 ####[facility] [address] [place] [address] Hematocrit (Bld) [Volume fraction] 33.9 % Low 37.7-49.0 [facility] Comment on above: Performed By: #### 2 536441, 20847083, 88855960, 0392650, 0895251, 1039183, 612680377, 2749793, 3978957 ####[facility] [address] [place] [address] Hemoglobin (Bld) [Mass/Vol] 11.1 g/dL Low 13.5-17.5 [facility] Comment on above: Performed By: #### 2 126663, 26634248, 91265394, 7130885, 9843766, 3640662, 105115907, 3962431, 8842139 ####[facility] [address] [place] [address] MCH (RBC) [Entitic mass] 33.2 pg Normal 27.0-34.0 [facility] Comment on above: Performed By: #### 2 486424, 71304648, 18339030, 6799509, 6786154, 4462635, 094497774, 2446102, 9850274 ####[address] [address] MCHC (RBC) [Mass/Vol] 32.7 g/dL Normal 31.4-36.0 [facility] Comment on above: Performed By: #### 2 357773, 09589382, 55658470, 0281382, 7479947, 8659333, 359391291, 7377971, 5506581 ####[address] [place] [address] MCV (RBC) [Entitic vol] 101.5 fL High 80.0-100.0 [facility] Comment on above: Performed By: #### 2 019815, 64467093, 59855750, 2694583, 1856301, 3398025, 729533770, 1062199, 0596288 ####[address] [place] [address] Platelet mean volume (Bld) [Entitic vol] 9.2 fL Normal 6.4-10.8 [facility] Comment on above: Performed By: #### 2 696630, 22100237, 07453180, 1028860, 7670599, 0572550, 233903563, 9090416, 0614745 ####[facility] [address] [place] [address] Platelets (Bld) [#/Vol] 225.0 E9/L Normal 150.0-500.0 [facility] Comment on above: Performed By: #### 2 062363, 90035482, 33516171, 0924302, 4319541, 1435771, 098525548, 8363258, 0796880 ####[facility] [address] [place] [address] RBC (Bld) [#/Vol] 3.3 E12/L Low 4.3-5.9 [facility] Comment on above: Performed By: #### 2 955388, 45482206, 08160773, 0293373, 1298269, 8879231, 132086018, 2376383, 1371819 ####[facility] [address] [place] [address] WBC corrected for nucl RBC Auto (Bld) [#/Vol] 3.9 E9/L Low 4.0-11.0 [facility] Comment on above: Result Comment: Slid e reviewed by ts . Performed By: #### 2 548122, 04550284, 54115046, 3937745, 1015903, 1972966, 926456768, 1192369, 8248692 ####[facility] [address] [place] [address] CHEMISTRYOrdered By: SYSTEM SYSTEM on 01-26-2023 25-hydroxyvitamin [...] 12 mmol/L Normal 6 - 16 mEq/L [facility] Remisol AST [Catalytic activity/Vol] 15 [iU]/d Normal [...] 48 mL/min/1.73 m2 Low >=59mL/min/1 .73 m2 [facility] Chem S Globulin (S) [Mass/Vol] 3.7 g/dL [...] 142 mmol/L Normal 135 - 145 mmol/L [facility] Remisol TSH Qn 3.71 m[IU]/L Normal 0.34 - 5.60 mcIU/mL [facility] Remisol Urea nitrogen [Mass/Vol] 20 mg/dL Normal 5 - 21 mg/dL [facility] Remisol Urea nitrogen/Creatinine [Mass ratio] 13 mg/mg Normal 10 - 20 [facility] Remisol CMPon 01-26-2023 Albumin [Mass/Vol] 3.4 g/dL Normal 3.3-5.0 [facility] Comment on above: Performed By: #### 2 120592, 24092946, 08427077, 3375194, 8622440, 5414156, 704923448, 0163473, 9308974 ####[facility] [address] [place] [address] Albumin/Globulin (S) [Mass conc ratio] 0.9 Low 1.1-2.2 [facility] Comment on above: Performed By: #### 2 508436, 30769776, 25230124, 0115665, 6261834, 8625785, 788103563, 7173021, 9974798 ####[facility] [address] [place] [address] ALP [Catalytic activity/Vol] 93 Int._Unit/L Normal 21-98 [facility] Comment on above: Performed By: #### 2 931307, 91115962, 14035874, 6633872, 6115623, 8131550, 507091515, 5355070, 1215425 ####[facility] [address] [place] [address] ALT No additional P-5'-P [Catalytic activity/Vol] 18 Int._Unit/L Normal 6-46 [facility] Comment on above: Performed By: #### 2 326171, 22891256, 28239968, 0603376, 2306655, 7018939, 728814866, 0163522, 2519188 ####[facility] [address] [place] [address] Anion gap [Moles/Vol] 12 mmol/L Normal 6-16 [facility] Comment on above: Performed By: #### 2 517534, 95813209, 44027378, 9170623, 2797959, 5945799, 666911361, 8346050, 4565771 ####[facility] [address] [place] [address] AST [Catalytic activity/Vol] 15 Int._Unit/L Normal 5-43 [facility] Comment on above: Performed By: #### 2 648036, 70842260, 86346315, 3052168, 6705108, 3681693, 983996316, 9079381, 2589381 ####[facility] [address] [place] [address] Bilirubin [Mass/Vol] 0.3 mg/dL Normal 0.0-1.1 [facility] Comment on above: Performed By: #### 2 340661, 13288533, 99251600, 8905879, 0098622, 0751680, 970643789, 1020098, 0556495 ####[facility] [address] [place] [address] Calcium [Mass/Vol] 8.6 mg/dL Low 8.9-11.1 [facility] Comment on above: Performed By: #### 2 350963, 28378142, 11326654, 8658385, 3329416, 7253017, 630147443, 7345226, 2965532 ####[facility] [address] [place] [address] Chloride [Moles/Vol] 107 mmol/L Normal 101-111 [facility] Comment on above: Performed By: #### 2 228874, 42943684, 03147465, 5564203, 4541378, 2473514, 299289470, 0452941, 5730865 ####[facility] [address] [place] [address] CO2 [Moles/Vol] 27 mmol/L Normal 21-31 [facility] Comment on above: Performed By: #### 2 246981, 55576067, 67287387, 9883530, 4770993, 9588107, 632054114, 5171483, 3054268 ####[facility] [address] [place] [address] Creatinine [Mass/Vol] 1.5 mg/dL High 0.5-1.3 [facility] Comment on above: Performed By: #### 2 365995, 39616925, 54648099, 5549474, 8307450, 2929226, 011029622, 6924703, 8908790 ####[facility] [address] [place] [address] Globulin (S) [Mass/Vol] 3.7 g/dL Normal 1.4-4.0 [facility] Comment on above: Performed By: #### 2 418523, [id number], 73185208, 7020472, 3557102, 1077958, 493959058, 5409300, 1481157 ####[facility] [address] [place] [address] Glucose [Mass/Vol] 138 mg/dL Normal 55-199 [facility] Comment on above: Result Comment: If t his glucose result represents a fasting glucose, interpretation should refer to the following reference range: 55-99 mg/dL Performed By: #### 2 414760, 61071015, 02517380, 9195612, 0082059, 3462629, 396133673, 1722702, 0218804 ####[facility] [address] [place] [address] Potassium [Moles/Vol] 4.3 mmol/L Normal 3.5-5.3 [facility] Comment on above: Performed By: #### 2 530264, 22971207, 69826852, 4165760, 8036025, 6880727, 667550282, 3050143, 9475230 ####[facility] [address] [place] [address] Protein [Mass/Vol] 7.1 g/dL Normal 6.0-7.8 [facility] Comment on above: Performed By: #### 2 712524, 96512197, 88978013, 3541895, 9952307, 2652306, 291256146, 4156668, 7085033 ####[facility] [address] [place] [address] Sodium [Moles/Vol] 142 mmol/L Normal 135-145 [facility] Comment on above: Performed By: #### 2 965047, 20735659, 56341035, 3613224, 1909394, 5552430, 178934861, 0547603, 1756990 ####[facility] [address] [place] [address] Urea nitrogen [Mass/Vol] 20 mg/dL Normal 5-21 [facility] Comment on above: Performed By: #### 2 553243, 43172390, 29212934, 8682468, 4834867, 4816076, 517536660, 1253448, 4743984 ####[facility] [address] [place] [address] Urea nitrogen/Creatinine [Mass ratio] 13 No Units Normal 10-20 [facility] Comment on above: Performed By: #### 2 994736, 87086131, 40000105, 2263770, 3849108, 1155245, 368254550, 1985208, 5973224 ####[facility] [address] [place] [address] Free T4on 01-26-2023 Free T4 [Mass/Vol] 1.10 ng/dL Normal 0.58-1.64 [facility] Comment on above: Performed By: #### 2 256552, 06148841, 94791165, 6990376, 8543523, 4325995, 992822710, 9721139, 3132313 ####[facility] [address] [place] [address] HEMATOLOGYOrdered By: SYSTEM SYSTEM on 01-26-2023 Basophils/100 WBC (Bld) 0.3 % Normal 0.0 - 2.0 % [facility] Basophils/Leukocytes Auto (Bld) [Pure # fraction] 0.0 E9/L Normal 0.0 - 0.2 E9/L [facility] Eosinophils/100 WBC (Bld) 1.0 % Normal 0.0 - 8.0 % [facility] Eosinophils/Leukocyte s Auto (Bld) [Pure # fraction] 0.0 E9/L Normal 0.0 - 0.5 E9/L [facility] Lymphocytes/100 WBC (Bld) 19.4 % Normal 14.0 - 50.0 % [facility] Lymphocytes/Leukocyte s Auto (Bld) [Pure # fraction] 0.8 E9/L Low 1.0 - 4.0 E9/L [facility] Monocytes/100 WBC (Bld) 34.7 % High 4.0 - 14.0 % [facility] Monocytes/Leukocytes Auto (Bld) [Pure # fraction] 1.4 E9/L High 0.2 - 1.0 E9/L [facility] Neutrophils/100 WBC (Bld) 44.6 % Normal 36.0 - 75.0 % [facility] Neutrophils/Leukocyte s Auto (Bld) [Pure # fraction] 1.7 E9/L [...] 9.2 fL Normal 6.4 - 10.8 fL [facility] Platelets (Bld) [#/Vol] 225.0 E9/L Normal 150.0 - 500.0 E9/L [facility] RBC (Bld) [#/Vol] 3.3 E12/L Low 4.3 - 5.9 E12/L [facility] WBC corrected for nucl RBC Auto (Bld) [#/Vol] 3.9 E9/L Low 4.0 - 11.0 E9/L [facility] Comment on above: Result Comment: Casandra e reviewed by ts . Nurse Consultation [...] a day (at bedtime) ipratropium Nasal 0.06% [place], 2 spray(s), Nasal, BID, 1 refills levothyroxine [...] Known Allergies Immunizations Vaccine Date Status SARSCoV2 mRNA(ettcgyevz-xodj-uhfw os) vac 03/11/2022 Recorded SARS-CoV-2 (COVID-19) mRNA BNT-162b2 [...] influenza virus vaccine, inactivated 08/04/2017 Recorded Normal [facility] PSA Screen, Total01-27-20 Prostate specific Ag [Mass/Vol] 0.3 ng/mL Normal 0.1-3.5 [facility] Comment on above: Result Comment: The concentration of PSA determined by different manufacturers can vary due to differences in assay methods and reagent specificity. Values obtained from different assay methods cannot be used interchangeably. The methodology used for this result was chemiluminescence using [employer] Access Hybritech PSA reagent. Performed By: #### 2 797682, 26057747, 51611361, 5766091, 4699665, 9685442, 759396987, 5403705, 4366973 #### [facility] [address] [place] [address] TSHon 01-26-2023 TSH Qn 3.71 m[IU]/L Normal 0.34-5.60 [facility] Comment on above: Performed By: #### 2 201930, 28132760, 40837304, 9362461, 6254928, 9489594, 582615012, 2981945, 2134812 ####[facility] [address] [place] [address] Vitamin D 25 Hydroxyon 01-26 25-hydroxyvitamin D3 [Mass/Vol] 69.4 ng/mL Normal 30.0-100.0 [facility] Comment on above: Result Comment: Vit gordon D deficiency has been defined as a level of serum 25-OH vitamin D less than 20 ng/mL (1,2) by the [place] of Medicine and an Endocrine Society practice guideline. The Endocrine Society further defined vitamin D insufficiency as a level between 21 and 29 ng/mL (2). 1. IOM ([place] of Medicine). 2010. Dietary reference intakes for calcium and D. [place]: The National Academies Press. 2. Fuad MF, Thien MARTINO, Lisa HEIN, et al. Evaluation, treatment, and prevention of vitamin D deficiency: an Endocrine Society clinical practice guideline. JCEM. 2010; 96 (7):1911-30. Performed By: #### 2 902748, 58198681, 48635855, 5420874, 7919150, 0640445, 528251267, 3926099, 9906042 ####[facility] [address] [place] [address] eGFRon 01-26-2023 GFR/1.73 sq M.predicted among non-blacks MDRD (S/P/Bld) [Vol rate/Area] 48 mL/min/1.73 m2 Low >=59 [facility] Comment on above: Order Comment: Order added by Discern Expert. Result Comment: [place] monica kidney disease could be indicated at eGFR's of less than 60 mL/min/1.73m2. Kidney failure is indicated at less than 15 mL/min/1.73m2. Performed By: #### 2 284860, 17170741, 45287896, 5418599, 9552750, 6016135, 411087165, 0607198, 1047605 ####[facility] [address] [place] [address] Family Medicine Office/Clini c Noteon 01-22-2023 Family [...] 30 cap(s), Refills(s) 0, Pharmacy: [facility]/pharmacy #[id number], 162, cm, 01/22/23 13:19:00 EDT, Height/Length Dosing, 98.3, kg, 01/22/23 13:19:00 EDT, Weight Dosing Misc Prescription, Nebulizer accessory set, See Instructions, 1 EA, 0, pt to use nebulizer as prescribed for COPD, [facility] ([facility] Supply, 162, cm, 01/22/23 [...] 30 cap(s), Refills(s) 0, Pharmacy: [facility]/pharmacy #[id number], 162, cm, 01/22/23 13:19:00 EDT, Height/Length Dosing, 98.3, kg, 01/22/23 13:19:00 EDT, Weight Dosing Misc Prescription, Nebulizer accessory set, See Instructions, 1 EA, 0, pt to use nebulizer as prescribed for COPD, [facility] ([facility] ), Supply, 162, cm, 01/22/23 [...] 30 cap(s), Refills(s) 0, Pharmacy: [facility]/pharmacy #[id number], 162, cm, 01/22/23 13:19:00 EDT, Height/Length Dosing, 98.3, kg, 01/22/23 13:19:00 EDT, Weight Dosing Misc Prescription, Nebulizer accessory set, See Instructions, 1 EA, 0, pt to use nebulizer as prescribed for COPD, [facility] ([facility] ), Supply, 162, cm, 01/22/23 13:19:00 EDT, Height/Length Dosing, 98.3, kg, 01/22/23 13:19:00 EDT, Weight Dosing 4. 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 Orders: ipratropium nasal, 2 spray(s), Nasal, BID, 1 EA, Refill(s) 1, PLACE 2 SPRAYS IN EACH NOSTRIL TWO TIMES DAILY., [facility]/pharmacy #[id number], 162, cm, 01/22/23 13:19:00 EDT, Height/Length Dosing, 98.3, kg, 01/22/23 13:19:00 EDT, Weight Dosing Follow-up No qualifying data available Problem List/Past Medical History Ongoing B12 deficiency BPH with urinary obstruction Compression fracture of thoracic vertebra with routine healing, unspecified thoracic vertebral level, subsequent encounter COPD with asthma Essential tremor Former smoker History (more content not included)... Normal [facility] Comment on above: Result Comment: Elec [...] pulmonary disease, unspecified (more content not included)... [facility] Comment on above: Result Comment: Elec tronically Signed By: Marlys Carcamo\.br\Date and Time Signed: 01/19/23 15:49 EDT\.br\Electronically Co-Signed By: Tres Queen\.br\Date and Time Co-Signed: 01/16/23 14:05 EDT [place] 01-19-2023 Screens [id number]: 127 [facility] Patient Educationon 01-17-20 Patient Education Caregiving Fall Prevention in the [...] night-lights. ? Place frequently used items in uxhn-yg-studz places. Lower the shelves around your home [...] the way. ? Do not use floor romanian or wax that makes floors slippery. If [...] include working with a physical therapist or pet trainer to improve your strength, balance, and endurance. Where to find more information ? Centers for Disease Control and Prevention, [place]: www.cdc.gov ? National [place] on Aging: www.yasmin.nih.gov Contact a health care [...] health ca (more content not included)... Normal [facility] Office Visiton 11-28-2022 Follow-up visit [id number] Tremaine Juarez 1945 M Date Provider Department Center 11/28/2022 ANASTASIA LOVE Family History Problem Relation Age of Onset Stroke Father Family Status - Relation Status Age at Father Level of Service:06026 OK OFFICE/OUTPATIENT ESTABLISHED LOW MDM 20-29 MIN Reason for Visit and Comments: Hyperlipidemia [182] Shortness of Breath [142810] Normal [facility] Family Medicine Office/Clini c Noteon 10-29-2022 Family Medicine Office/Clinic Note Chief Complaint sinusitis HPI Staff Patient is here to establish care Establish Care: History: Any previous diagnosis: htn,thyroid History of seeing any specialist:pulmonary When was your last doctors visit: Last provider:Dr. Sherwood Any recent labs:07/17/23 in [place] Acute: Current issues/complaints: sinus infection Health Maintenance [...] for cystic fibrosis. Chiki reports that his harpsichord maker, Dr. Berg from the [facility] told him that he is [...] will try to get documentation from his harpsichord maker about this lung condition that he needs [...] thoracic vertebra (more content not included)... Normal [facility] Comment on above: Result Comment: Elec tronically Signed By: Pito Patterson MD\.br\Date and Time Signed: 10/29/22 13:24 EDT\.br\Electronically Co-Signed By: Shelly Liang.br\Date and Time Co-Signed: 10/28/22 19:22 EDT Ambulatory [...] hernia Your Care Team Attending Physician - Yesenia VENTURA, Pito Davidson Primary Care Physician - JARETT VENTURA, WILL Del Troo This Is Your Medications List albuterol (albuterol [...] VENTURA, Oni Sewell Where: [facility]-05-[facility]22 RAINA Telephone ([employer]exus) -------- ALTHEACHIKI HERNANDEZ ([id number]) 1945 M Date Time Provider Department 08/05/22 [...] 240 mcg/0.7 mL injection Fluzone High-Dose Quad (PF) 240 mcg/0.7 mL IM syringe PHARMACY [...] Status:Closed by LYNSEY DIAZ on 08/05/22 Normal [facility] PROF CHEM 8 (BAS METB)on Anion gap [Moles/Vol] 14.0 mmol/L Normal [facility] Comment on above: Performed By: #### B ####[facility] [address] [place] [address]DrJeffery Nichols Calcium [Mass/Vol] 8.8 mg/dL Normal 8.5-10.1 [facility] Comment on above: Performed By: #### B MP ####[facility] [address] [place] [address]Dr. Trevor Simone Chloride [Moles/Vol] 104 mmol/L Normal 98-107 [facility] Comment on above: Performed By: #### B MP ####[facility] [address] [place] [address]Dr. iVvifrancie Simone CO2 [Moles/Vol] 26.0 mmol/L Normal 21.0-32.0 [facility] Comment on above: Performed By: #### B MP ####[facility] [address] [place], [place] [address]Dr. Trevor Simone Creatinine [Mass/Vol] 1.49 mg/dL Critically high 0.70-1.30 [facility] Comment on above: Performed By: #### B MP ####[facility] [address] [place], [place] [address]Dr. Vivifrancie Simone EGFR-AF DJIBOUTIAN 56 mL/min/1.73m2 Critically low >=60 [facility] Comment on above: Performed By: #### B MP ####[facility] [address] [place], [place] [address]Dr. Vivifrancie Simone EGFR-NON AF DJIBOUTIAN 46 mL/min/1.73m2 Critically low >=60 [facility] Comment on above: Performed By: #### B MP ####[facility] [address] [place], [place] [address]Dr. Vivifrancie Simone Glucose [Mass/Vol] 115 mg/dL Critically high 74-106 [facility] Comment on above: Performed By: #### B MP ####[facility] [address] [place], [place] [address]Dr. Trevor Nichols Potassium [Moles/Vol] 4.0 mmol/L Normal 3.5-5.1 [facility] Comment on above: Performed By: #### B MP ####[facility] [address] [place], [place] [address]Dr. Trevor Nichols Sodium [Moles/Vol] 140 mmol/L Normal 136-145 [facility] Comment on above: Performed By: #### B MP ####[facility] [address] [place], [place] [address]Rh. Trevor Nichols Urea nitrogen [Mass/Vol] 22.0 mg/dL Critically high 7.0-18.0 [facility] Comment on above: Performed By: #### B MP ####[facility] [address] [place], [place] [address]Rn. Trevor Nichols Urea nitrogen/Creatinine [Mass ratio] 14.8 mg/mg Normal [facility] Comment on above: Performed By: #### B MP ####[facility] [address] [place], [place] [address]Pl. Trevor Nichols NM STRESS/REST MULTIon 04-16 NM STRESS/REST MULTI Patient: JANNETH JUAREZ Exam Date: 04/16/2022 : 1945 Gender:M Ordering : DR DANIELLA EASTON M.D. Admission #: [id number] Family : DR WILL SHERWOOD . Order #: [id number] CLICK HERE TO VIEW EXAM RADIOLOGY REPORT [...] Beatty MD on 04/16/2022 at 10:23 Normal [facility] ECHOCARDIO M/2D COMPLETEon 0 02-19-2022 ECHOCARDIO M/2D COMPLETE Patient: CHIKI JUAREZ Exam Date: 02/19/2022 : 1945 Gender:M Ordering : CRISTÓBAL StellaJeffery JENI Admission #: [id number] Family : DR WILL SHERWOOD . Order #: [id number] CLICK HERE TO VIEW EXAM ECHOCARDIOGRAM REPORT [...] Easton M.D. on 02/19/2022 at 19:53 Normal [facility] LIPID PROFILEon 02-10-2022 CHOL-HDL RATIO NORM SEE BELOW Normal [facility] Comment on above: Result Comment: 3.3 - 4.4 LOW RISK 4.4 - 7.1 AVERAGE RISK 7.1 - 11.0 MODERATE RISK >11.0 HIGH RISK Performed By: #### L IPID #### [facility] [address] [place] [address] Dr. Trevor Nichols Cholesterol [Mass/Vol] 171 mg/dL Normal <=200 [facility] Comment on above: Performed By: #### L IPID #### [facility] [address] [address] [address] Trevor Nichols Cholesterol in HDL [Mass/Vol] 40 mg/dL Normal 40-60 [facility] Comment on above: Performed By: #### L IPID #### [facility] [address] [address] [address] Trevor Nichols Cholesterol in LDL [Mass/Vol] 114.0 mg/dL Normal [facility] Comment on above: Performed By: #### L IPID #### [facility] [address] [address] [address] Trevor Nichols Cholesterol.total/Cho lesterol in HDL [Mass ratio] 4.3 {ratio} Normal [facility] Comment on above: Performed By: #### L IPID #### [facility] [address] [address] [address] Trevor Nichols HDL NORMAL > or = 60 mg/dl - LO W CARDIOVASCULAR RISK <40 mg/dl - HIGH CARDIOVASCULAR RISK Normal [facility] Comment on above: Performed By: #### L IPID #### [facility] [address] [address] [address] Trevor Nichols LDL CALC NORMAL SEE BELOW Normal [facility] Comment on above: Result Comment: <100 mg/dl OPTIMAL 100 - 129 mg/dl NEAR OR ABOVE OPTIMAL 130 - 159 mg/dl BORDERLINE HIGH 160 - 189 mg/dl HIGH >190 mg/dl VERY HIGH Performed By: #### L IPID #### [facility] [address] [place] [address] Dr. Trevor Nichols Triglyceride [Mass/Vol] 85 mg/dL Normal <=150 [facility] Comment on above: Performed By: #### L IPID #### [facility] [address] [place] [address] Dr. Trevor Nichols VLDL CALC 17.0 mg/dL Normal [facility] Comment on above: Performed By: #### L IPID #### [facility] [address] [place] [address] Dr. Trevor Nichols BNPon 02-05-2022 Natriuretic peptide B (Bld) [Mass/Vol] 231.0 pg/mL Normal <=900.0 [facility] Comment on above: Performed By: #### H STROPN, BNP, BMP #### [facility] [address] [place] [address] Dr. Trevor Nichols CBC W MANUAL DIFFon 02-06-20 ANISOCYTOSIS 1+ Normal [facility] Comment on above: Performed By: #### C BCMAN #### [facility] [address] [place] [address] Dr. Trevor Nichols ATYPICAL LYMPH # Normal [facility] Comment on above: Performed By: #### C JOBY #### [facility] [address] [place] [address] Dr. Trevor Nichols ATYPICAL LYMPH % Normal [facility] Comment on above: Performed By: #### C BCMAN #### [facility] [address] [place] [address] Dr. Trevor Nichols BAND # 0.3 103/ul Normal 0.0-0.3 [facility] Comment on above: Performed By: #### C BCMAN #### [facility] [address] [place] [address] Dr. Trevor Nichols BAND % 6 % Critically high 0-5 [facility] Comment on above: Performed By: #### C BCMAN #### [facility] [address] [place] [address] Dr. Trevor Nichols BASOM # 0.00 103/ul Normal 0.00-0.10 [facility] Comment on above: Performed By: #### C BCMAN #### [facility] [address] [place] [address] Dr. Trevor Nichols BASOM % 0.0 % Critically low 0.2-2.0 [facility] Comment on above: Performed By: #### C BCMAN #### [facility] [address] [place] [address] Dr. Trevor Nichols BLAST # Normal [facility] Comment on above: Performed By: #### C BCNADIA #### [facility] [address] [place] [address] Dr. Trevor Nichols BLAST % Normal [facility] Comment on above: Performed By: #### C BCMAN #### [facility] [address] [place] [address] Dr. Trevor Nichols CORRECTED WBC Normal 4.0-11.0 [facility] Comment on above: Performed By: #### C BCMAN #### [facility] [address] [place] [address] Dr. Trevor Nichols EOS # 0.04 103/ul Normal 0.00-0.70 [facility] Comment on above: Performed By: #### C BCMAN #### [facility] [address] [place] [address] Dr. Trevor Nichols EOS% 1.0 % Normal 0.9-7.0 [facility] Comment on above: Performed By: #### C JOBY #### [facility] [address] [place] [address] Dr. Trevor Nichols HCT 36.4 % Critically low 42.0-54.0 [facility] Comment on above: Performed By: #### C JOBY #### [facility] [address] [address] [address] Trevor Nichols HGB 11.4 g/dl Critically low 14.0-18.0 [facility] Comment on above: Performed By: #### C JOBY #### [facility] [address] [place] [address] Dr. Trevor Nichols HYPOCHROMASIA SLIGHT Normal [facility] Comment on above: Performed By: #### C JOBY #### [facility] [address] [place] [address] Dr. Trevor Nichols LYMPHM # 1.19 103/ul Critically low 1.20-3.80 [facility] Comment on above: Performed By: #### C JOBY #### [facility] [address] [place] [address] Dr. Trevor Nichols LYMPHM% 27.0 % Normal 20.5-60.0 [facility] Comment on above: Performed By: #### C JOBY #### [facility] [address] [place] [address] Dr. Trevor Nichols MCH 32.5 pg Normal 25.9-34.0 [facility] Comment on above: Performed By: #### C JOBY #### [facility] [address] [place] [address] Dr. Trevor Nichols MCHC 31.3 g/dl Normal 29.9-35.2 [facility] Comment on above: Performed By: #### C JOBY #### [facility] [address] [place] [address] Dr. Trevor Nichols MCV 103.7 fL Critically high 80.0-94.0 [facility] Comment on above: Performed By: #### C JOBY #### [facility] [address] [place] [address] Dr. Trevor Nichols METAMYELOCYTE # Normal [facility] Comment on above: Performed By: #### C JOBY #### [facility] [address] [place] [address] Dr. Trevor Nichols METAMYELOCYTE % Normal [facility] Comment on above: Performed By: #### C JOBY #### [facility] [address] [address] [address] Trevor Nichols MONOM# 1.28 103/ul Critically high 0.30-0.80 [facility] Comment on above: Performed By: #### C JOBY #### [facility] [address] [place] [address] Dr. Trevor Nichols MONOM% 29.0 % Critically high 1.7-12.0 [facility] Comment on above: Performed By: #### C JOBY #### [facility] [address] [place] [address] Dr. Trevor iNchols MPV 10.5 fL Normal 9.5-13.5 [facility] Comment on above: Performed By: #### Brodie HEMPHILL #### [facility] [address] [place] [address] Dr. Trevor Nichols MYELOCYTE # Normal [facility] Comment on above: Performed By: #### C JOBY #### [facility] [address] [place] [address] Dr. Trevor Nichols MYELOCYTE % Normal [facility] Comment on above: Performed By: #### C JOBY #### [facility] [address] [place] [address] Dr. Trevor Nichols NRBC Normal [facility] Comment on above: Performed By: #### C JOBY #### [facility] [address] [place] [address] Dr. Trevor Nichols PLT 161 103/ul Normal 150-450 [facility] Comment on above: Performed By: #### C JOBY #### [facility] [address] [place] [address] Dr. Trevor Nichols RBC 3.51 106/ul Critically low 4.70-6.10 [facility] Comment on above: Performed By: #### C JOBY #### [facility] [address] [place] [address] Dr. Trevor Nichols RDW 16.0 % Critically high 11.0-15.0 [facility] Comment on above: Performed By: #### Brodie HEMPHILL #### [facility] [address] [address] [address] Trevor Nichols SEG # 1.63 103/ul Normal 1.40-6.50 [facility] Comment on above: Performed By: #### C JOBY #### [facility] [address] [place] [address] Dr. Trevor Nichols SEG % 37.0 % Critically low 43.0-75.0 [facility] Comment on above: Performed By: #### Brodie HEMPHILL #### [facility] [address] [place] [address] Dr. Trevor Nichols WBC 4.4 103/ul Normal 4.0-11.0 [facility] Comment on above: Performed By: #### Brodie HEMPHILL #### [facility] [address] [place] [address] Dr. Trevor Nichols PROF 14(COMP METB)on 022 Albumin [Mass/Vol] 3.4 g/dL Normal 3.4-5.0 [facility] Comment on above: Performed By: #### H STROPN, BNP, BMP #### [facility] [address] [place] [address] Dr. Trevor Nichols Albumin/Globulin [Mass ratio] 0.9 {ratio} Normal [facility] Comment on above: Performed By: #### H STROPN, BNP, BMP #### [facility] [address] [place] [address] Dr. Trevor Nichols ALP [Catalytic activity/Vol] 99 U/L Normal 46-116 [facility] Comment on above: Performed By: #### H STROPN, BNP, BMP #### [facility] [address] [address] [address] Trevor Nichols ALT [Catalytic activity/Vol] 18 U/L Normal 16-63 [facility] Comment on above: Performed By: #### H STROPN, BNP, BMP #### [facility] [address] [place] [address] Dr. Trevor Nichols Anion gap [Moles/Vol] 13.5 mmol/L Normal [facility] Comment on above: Performed By: #### H STROPN, BNP, BMP #### [facility] [address] [place] [address] Dr. Trevor Nichols AST [Catalytic activity/Vol] 10 U/L Critically low 15-37 [facility] Comment on above: Performed By: #### H STROPN, BNP, BMP #### [facility] [address] [place] [address] Dr. Trevor Nichols Bilirubin [Mass/Vol] 0.5 mg/dL Normal 0.2-1.0 [facility] Comment on above: Performed By: #### H STROPN, BNP, BMP #### [facility] [address] [place] [address] Dr. Trevor Nichols Calcium [Mass/Vol] 8.8 mg/dL Normal 8.5-10.1 [facility] Comment on above: Performed By: #### H STROPN, BNP, BMP #### [facility] [address] [place] [address] Dr. Trevor Nichols Chloride [Moles/Vol] 106 mmol/L Normal 98-107 [facility] Comment on above: Performed By: #### H STROPN, BNP, BMP #### [facility] [address] [place] [address] Dr. Trevor Nichols CO2 [Moles/Vol] 24.3 mmol/L Normal 21.0-32.0 [facility] Comment on above: Performed By: #### H STROPN, BNP, BMP #### [facility] [address] [place] [address] Dr. Trevor Nichols Creatinine [Mass/Vol] 1.35 mg/dL Critically high 0.70-1.30 [facility] Comment on above: Performed By: #### H STROPN, BNP, BMP #### [facility] [address] [address] [address] Trevor Nichols EGFR-AF DJIBOUTIAN >60 Normal >=60 [facility] Comment on above: Performed By: #### H STROPN, BNP, BMP #### [facility] [address] [place] [address] Dr. Trevor Nichols EGFR-NON AF DJIBOUTIAN 52 mL/min/1.73m2 Critically low >=60 [facility] Comment on above: Performed By: #### H STROPN, BNP, BMP #### [facility] [address] [address] [address] Trevor Nichols Globulin (S) [Mass/Vol] 3.8 g/dL Normal [facility] Comment on above: Performed By: #### H STROPN, BNP, BMP #### [facility] [address] [place] [address] Dr. Trevor Nichols Glucose [Mass/Vol] 103 mg/dL Normal 74-106 [facility] Comment on above: Performed By: #### H STROPN, BNP, BMP #### [facility] [address] [address] [address] Trevor Nichols Potassium [Moles/Vol] 3.8 mmol/L Normal 3.5-5.1 [facility] Comment on above: Performed By: #### H STROPN, BNP, BMP #### [facility] [address] [place] [address] Dr. Trevor Nichols Protein [Mass/Vol] 7.2 g/dL Normal 6.4-8.2 [facility] Comment on above: Performed By: #### H STROPN, BNP, BMP #### [facility] [address] [place] [address] Dr. Trevor Nichols Sodium [Moles/Vol] 140 mmol/L Normal 136-145 [facility] Comment on above: Performed By: #### H STROPN, BNP, BMP #### [facility] [address] [place] [address] Dr. Trevor Nichols Urea nitrogen [Mass/Vol] 22.0 mg/dL Critically high 7.0-18.0 [facility] Comment on above: Performed By: #### H STROPN, BNP, BMP #### [facility] [address] [address] [address] Trevor Nichols Urea nitrogen/Creatinine [Mass ratio] 16.3 mg/mg Normal [facility] Comment on above: Performed By: #### H STROPN, BNP, BMP #### [facility] [address] [address] [address] Trevor Nichols TSHon 02-05-2022 TSH 3.360 uIU/mL Normal 0.358-3.740 [facility] Comment on above: Performed By: #### H STROPN, BNP, BMP #### [facility] [address] [address] [address] Trevor Nichols XR CHEST 2 Von [...] by: ALLAN FLOREZ Date: 2022-02-05 17:03 Normal [facility] XR BONE SURVEYon 09-25-2021 XR BONE [...] suggestive of monoclonal gammopathy. Electronically authenticated by: HSAY BERNSTEIN Date: 2021-09-25 07:30 Normal [facility] PROTEIN ELECTROPHERESISon Albumin [Mass/Vol] 3.2 g/dL Normal 2.9-4.4 [facility] Comment on above: Performed By: #### P RTELEC ####[facility] [address] [address]Dr. Trevor Nichols Albumin/Globulin [Mass ratio] 1.1 {ratio} Normal 0.7-1.7 [facility] Comment on above: Performed By: #### P RTELEC ####[facility] [address] [address]Dr. Trevor Nichols Uybdp-0-Rqidotfh 0.3 g/dL Normal 0.0-0.4 [facility] Comment on above: Performed By: #### P RTELEC ####[facility] [address] [address]Dr. Trevor Nichols Tvhmk-7-Giebasjp 0.8 g/dL Normal 0.4-1.0 [facility] Comment on above: Performed By: #### P RTELEC ####[facility] [address] [address]Dr. Trevor Nichols Beta Globulin 1.0 g/dL Normal 0.7-1.3 [facility] Comment on above: Performed By: #### P RTELEC ####[facility] [address] [address]Dr. Trevor Nichols Gamma Globulin 0.8 g/dL Normal 0.4-1.8 [facility] Comment on above: Performed By: #### P RTELEC ####[facility] [address] [address]Dr. Trevor Nichols Globulin (S) [Mass/Vol] 2.9 g/dL Normal 2.2-3.9 [facility] Comment on above: Performed By: #### P RTELEC ####[facility] [address] [place], [place] [address]Dr. Trevor Nichols M-Jorge 0.1 g/dL Critically high Not Observed [facility] Comment on above: Performed By: #### P RTELEC ####[facility] [address] [address]Dr. Trevor Nichols PDF . Normal [facility] Comment on above: Performed By: #### P RTELEC ####[facility] [address] [place], [place] [address]Dr. Trevor Nichols Please note: Comment Normal [facility] Comment on above: Result Comment: Prot ein electrophoresis scan will follow via computer, mail, or job recruiter delivery. Performed By: #### P RTELEC ####[facility] [address] [address]Dr. Trevor Nichols Protein [Mass/Vol] 6.1 g/dL Normal 6.0-8.5 [facility] Comment on above: Performed By: #### P RTELEC ####[facility] [address] [address]Dr. Trevor Nichols PROF CHEM 8 (BAS METB)on Anion gap [Moles/Vol] 16.3 mmol/L Normal [facility] Comment on above: Performed By: #### H STROPN, BNP, BMP #### [facility] [address] [address] [address] Trevor Nichols Calcium [Mass/Vol] 9.1 mg/dL Normal 8.4-10.2 [facility] Comment on above: Performed By: #### H STROPN, BNP, BMP #### [facility] [address] [address] [address] Trevor Nichols Chloride [Moles/Vol] 104 mmol/L Normal 98-107 [facility] Comment on above: Performed By: #### H STROPN, BNP, BMP #### [facility] [address] [address] [address] Trevor Nichols CO2 [Moles/Vol] 23.3 mmol/L Normal 22.0-30.0 [facility] Comment on above: Performed By: #### H STROPN, BNP, BMP #### [facility] [address] [place] [address] Dr. Trevor Nichols Creatinine [Mass/Vol] 1.28 mg/dL Critically high 0.66-1.25 [facility] Comment on above: Performed By: #### H STROPN, BNP, BMP #### [facility] [address] [place] [address] Dr. Trevor Nichols EGFR-AF DJIBOUTIAN >60 Normal >=60 [facility] Comment on above: Performed By: #### H STROPN, BNP, BMP #### [facility] [address] [place] [address] Dr. Trevor Nichols EGFR-NON AF DJIBOUTIAN 55 mL/min/1.73m2 Critically low >=60 [facility] Comment on above: Performed By: #### H STROPN, BNP, BMP #### [facility] [address] [place] [address] Dr. Trevor Nichols Glucose [Mass/Vol] 98 mg/dL Normal 74-106 [facility] Comment on above: Performed By: #### H STROPN, BNP, BMP #### [facility] [address] [address] [address] Trevor Nichols Potassium [Moles/Vol] 3.6 mmol/L Normal 3.4-5.0 [facility] Comment on above: Performed By: #### H STROPN, BNP, BMP #### [facility] [address] [place], [place] [address] Dr. Trevor Nichols Sodium [Moles/Vol] 140 mmol/L Normal 137-145 [facility] Comment on above: Performed By: #### H STROPN, BNP, BMP #### [facility] [address] [address] [address] Trevor Nichols Urea nitrogen [Mass/Vol] 25.0 mg/dL Critically high 9.0-20.0 [facility] Comment on above: Performed By: #### H STROPN, BNP, BMP #### [facility] [address] [address] [address] Trevor Nichols Urea nitrogen/Creatinine [Mass ratio] 19.5 mg/mg Normal [facility] Comment on above: Performed By: #### H STROPN, BNP, BMP #### [facility] [address] [address] [address] Trevor Nichols XR MODIFIED BARIUM SWALLOWon [...] by: SHAY BERNSTEIN Date: 2021-09-05 10:40 Normal [facility] CULTURE SPUTUMon 08-01-2021 CULTURE SPUTUM Isolate [...] <=0.25 S F Levofloxacin <=0.12 S F Trimethoprim/Sulfamethox azole <=20 S F Normal [facility] Comment on above: Performed By: #### H STROPN, BNP, BMP #### [facility] [address] [address] [address] Trevor Nichols SPUTUM GRAM STAINon 07-30-20 COMMENTS Normal [facility] Comment on above: Performed By: #### S PUTGS ####[facility] [address] [address]Dr. Trevor Nichols DIPHTHEROIDS Normal [facility] Comment on above: Performed By: #### S PUTGS ####[facility] [address] [address]Dr. Trevor Nichols EPITHELIALS >25 Normal [facility] Comment on above: Performed By: #### S PUTGS ####[facility] [address] [address]Dr. Trevor Nichols FUNGAL ELEMENTS Normal [facility] Comment on above: Performed By: #### S PUTGS ####[facility] [address] [address]Dr. Trevor Nichols GRAM NEG BACILLI RARE Normal [facility] Comment on above: Performed By: #### S PUTGS ####[facility] [address] [address]Dr. Trevor Nichols GRAM NEG DIPPLOCOCCI Normal [facility] Comment on above: Performed By: #### S PUTGS ####[facility] [address] [address]Dr. Trevor Nichols GRAM POS BACILLI MANY Normal [facility] Comment on above: Performed By: #### S PUTGS ####[facility] [address] [place], [place] [address]Ia. Trevor Nichols GRAM POSITIVE COCCI MANY Normal [facility] Comment on above: Performed By: #### S PUTGS ####[facility] [address] [place], [place] [address]Ur. Trevor Nichols WBC (Bld) [#/Vol] 10*3/uL Normal [facility] Comment on above: Performed By: #### S PUTGS ####[facility] [address] [place], [place] [address]Ua. Trevor Nichols ECHOCARDIO M/2D COMPLETEon 1 09-24-2020 ECHOCARDIO M/2D COMPLETE Patient: CHIKI JUAREZ Exam Date: 07/24/2021 : 1945 Gender:M Ordering : [employer] Admission #: [id number] Family : DR WILL SHERWOOD . Order #: [id number] CLICK HERE TO VIEW EXAM ECHOCARDIOGRAM REPORT [...] M.D. on 07/24/2021 at 20:08 Normal [facility] CBC W MANUAL DIFFon 10-22-20 21 ATYPICAL LYMPH # Normal [facility] Comment on above: Performed By: #### H STROPN, BNP, BMP #### [facility] [address] [place] [address] Dr. Trevor Nichols ATYPICAL LYMPH % Normal [facility] Comment on above: Performed By: #### H STROPN, BNP, BMP #### [facility] [address] [place] [address] Dr. Trevor Nichols BAND # 0.1 103/ul Normal 0.0-0.3 [facility] Comment on above: Performed By: #### H STROPN, BNP, BMP #### [facility] [address] [place] [address] Dr. Trevor Nichols BAND % 2 % Normal 0-5 [facility] Comment on above: Performed By: #### H STROPN, BNP, BMP #### [facility] [address] [place] [address] Dr. Trevor Nichols BASOM # 0.00 103/ul Normal 0.00-0.10 [facility] Comment on above: Performed By: #### H STROPN, BNP, BMP #### [facility] [address] [place] [address] Dr. Trevor Nichols BASOM % 0.0 % Critically low 0.2-2.0 [facility] Comment on above: Performed By: #### H STROPN, BNP, BMP #### [facility] [address] [address] [address] Trevor Nichols BLAST # Normal [facility] Comment on above: Performed By: #### H STROPN, BNP, BMP #### [facility] [address] [address] [address] Trevor Nichols BLAST % Normal [facility] Comment on above: Performed By: #### H STROPN, BNP, BMP #### [facility] [address] [address] [address] Trevor Nichols CORRECTED WBC Normal 4.0-11.0 [facility] Comment on above: Performed By: #### H STROPN, BNP, BMP #### [facility] [address] [address] [address] Trevor Nichols EOS # 0.06 103/ul Normal 0.00-0.70 [facility] Comment on above: Performed By: #### H STROPN, BNP, BMP #### [facility] [address] [address] [address] Trevor Nichols EOS% 1.0 % Normal 0.9-7.0 [facility] Comment on above: Performed By: #### H STROPN, BNP, BMP #### [facility] [address] [address] [address] Trevor Nichols HCT 31.6 % Critically low 42.0-54.0 [facility] Comment on above: Performed By: #### H STROPN, BNP, BMP #### [facility] [address] [address] [address] Trevor Nichols HGB 9.7 g/dl Critically low 14.0-18.0 [facility] Comment on above: Performed By: #### H STROPN, BNP, BMP #### [facility] [address] [address] [address] Trevor Nichols LYMPHM # 0.46 103/ul Critically low 1.20-3.80 [facility] Comment on above: Performed By: #### H STROPN, BNP, BMP #### [facility] [address] [address] [address] Trevor Nichols LYMPHM% 8.0 % Critically low 20.5-60.0 [facility] Comment on above: Performed By: #### H STROPN, BNP, BMP #### [facility] [address] [address] [address] Trevor Nichols MACROCYTOSIS 1+ Normal [facility] Comment on above: Performed By: #### H STROPN, BNP, BMP #### [facility] [address] [address] [address] Trevor Nichols MCH 33.6 pg Normal 25.9-34.0 [facility] Comment on above: Performed By: #### H STROPN, BNP, BMP #### [facility] [address] [address] [address] Trevor Nichols MCHC 30.7 g/dl Normal 29.9-35.2 [facility] Comment on above: Performed By: #### H STROPN, BNP, BMP #### [facility] [address] [address] [address] Trevor Nichols MCV 109.3 fL Critically high 80.0-94.0 [facility] Comment on above: Performed By: #### H STROPN, BNP, BMP #### [facility] [address] [address] [address] Trevor Nichols METAMYELOCYTE # 0.1 103/ul Normal [facility] Comment on above: Performed By: #### H STROPN, BNP, BMP #### [facility] [address] [address] [address] Trevor Nichols METAMYELOCYTE % 2 % Normal [facility] Comment on above: Performed By: #### H STROPN, BNP, BMP #### [facility] [address] [address] [address] Trevor Nichols MONOM# 2.22 103/ul Critically high 0.30-0.80 [facility] Comment on above: Performed By: #### H STROPN, BNP, BMP #### [facility] [address] [address] [address] Trevor Nichols MONOM% 39.0 % Critically high 1.7-12.0 [facility] Comment on above: Performed By: #### H STROPN, BNP, BMP #### [facility] [address] [address] [address] Trevor Nichols MPV 9.4 fL Critically low 9.5-13.5 [facility] Comment on above: Performed By: #### H STROPN, BNP, BMP #### [facility] [address] [address] [address] Trevor Nichols MYELOCYTE # 0.3 103/ul Normal [facility] Comment on above: Performed By: #### H STROPN, BNP, BMP #### [facility] [address] [address] [address] Trevor Nichols MYELOCYTE % 6 % Normal [facility] Comment on above: Performed By: #### H STROPN, BNP, BMP #### [facility] [address] [address] [address] Trevor Nichols NRBC Normal [facility] Comment on above: Performed By: #### H STROPN, BNP, BMP #### [facility] [address] [address] [address] Trevor Nichols PLT 202 103/ul Normal 150-450 [facility] Comment on above: Performed By: #### H STROPN, BNP, BMP #### [facility] [address] [address] [address] Trevor Nichols RBC 2.89 106/ul Critically low 4.70-6.10 [facility] Comment on above: Performed By: #### H STROPN, BNP, BMP #### [facility] [address] [address] [address] Trevor Nichols RDW 15.4 % Critically high 11.0-15.0 [facility] Comment on above: Performed By: #### H STROPN, BNP, BMP #### [facility] [address] [address] [address] Trevor Nichols SEG # 2.39 103/ul Normal 1.40-6.50 [facility] Comment on above: Performed By: #### H STROPN, BNP, BMP #### [facility] [address] [address] [address] Trevor Nichols SEG % 42.0 % Critically low 43.0-75.0 [facility] Comment on above: Performed By: #### H STROPN, BNP, BMP #### [facility] [address] [address] [address] Trevor Nichols WBC 5.7 103/ul Normal 4.0-11.0 [facility] Comment on above: Performed By: #### H STROKALEN, BNP, BMP #### [facility] [address] [address] [address] Trevor Nichols PROF CHEM 8 (BAS METB)on Anion gap [Moles/Vol] 13.1 mmol/L Normal [facility] Comment on above: Performed By: #### B MP ####[facility] [address] [address]DrJeffery Nichols Calcium [Mass/Vol] 8.8 mg/dL Normal 8.4-10.2 [facility] Comment on above: Performed By: #### B MP ####[facility] [address] [address]DrJeffery Nichols Chloride [Moles/Vol] 104 mmol/L Normal 98-107 [facility] Comment on above: Performed By: #### B MP ####[facility] [address] [address]DrJeffery Nichols CO2 [Moles/Vol] 24.1 mmol/L Normal 22.0-30.0 [facility] Comment on above: Performed By: #### B MP ####[facility] [address] [address]DrJeffery Nichols Creatinine [Mass/Vol] 1.26 mg/dL Critically high 0.66-1.25 [facility] Comment on above: Performed By: #### B MP ####[facility] [address] [address]Dr. Vivifrancie Simone EGFR-AF DJIBOUTIAN >60 Normal >=60 [facility] Comment on above: Performed By: #### B MP ####[facility] [address] [address]Dr. Trevor Nichols EGFR-NON AF DJIBOUTIAN 56 mL/min/1.73m2 Critically low >=60 [facility] Comment on above: Performed By: #### B MP ####[facility] [address] [address]Dr. Trevor Nichols Glucose [Mass/Vol] 98 mg/dL Normal 74-106 [facility] Comment on above: Performed By: #### B MP ####[facility] [address] [place], [place] [address]Dr. Trevor Nichols Potassium [Moles/Vol] 4.2 mmol/L Normal 3.4-5.0 [facility] Comment on above: Performed By: #### B MP ####[facility] [address] [place], [place] [address]Dr. Trevor Nichols Sodium [Moles/Vol] 137 mmol/L Normal 137-145 [facility] Comment on above: Performed By: #### B MP ####[facility] [address] [place], [place] [address]Dr. Trevor Nichols Urea nitrogen [Mass/Vol] 20.0 mg/dL Normal 9.0-20.0 [facility] Comment on above: Performed By: #### B MP ####[facility] [address] [place], [place] [address]Dr. Trevor Nichols Urea nitrogen/Creatinine [Mass ratio] 15.9 mg/mg Normal [facility] Comment on above: Performed By: #### B MP ####[facility] [address] [place], [place] [address]Dr. Trevor Nichols CBC AUTO DIFFon 05-16-2021 BASO # 0.0 103/ul Normal 0.0-0.1 [facility] Comment on above: Performed By: #### C BC ####[facility] [address] [address]Dr. Trevor Nichols Basophils/100 WBC (Bld) 0.2 % Normal 0.2-2.0 [facility] Comment on above: Performed By: #### C BC ####[facility] [address] [address]Dr. Trevor Nichols EO # 0.0 103/ul Normal 0.0-0.7 [facility] Comment on above: Performed By: #### C BC ####[facility] [address] [address]Dr. Trevor Nichols Eosinophils/100 WBC (Bld) 0.0 % Critically low 0.9-7.0 [facility] Comment on above: Performed By: #### C BC ####[facility] [address] [place], [place] [address]Dr. Trevor Ncihols Erythrocyte distribution width (RBC) [Ratio] 15.1 % Critically high 11.0-15.0 [facility] Comment on above: Performed By: #### C BC ####[facility] [address] [place], [place] [address]Dr. Trevor Nichols Hematocrit (Bld) [Volume fraction] 32.9 % Critically low 42.0-54.0 [facility] Comment on above: Performed By: #### C BC ####[facility] [address] [place], [place] [address]Dr. Trevor Nichols Hemoglobin (Bld) [Mass/Vol] 10.5 g/dL Critically low 14.0-18.0 [facility] Comment on above: Performed By: #### C BC ####[facility] [address] [place], [place] [address]Dr. Trevor Nichols IG # 0.29 10e3/ul Critically high 0.00-0.03 [facility] Comment on above: Performed By: #### C BC ####[facility] [address] [place], [place] [id number]. Trevor Nichols IG % 6.5 % Critically high 0.0-0.5 [facility] Comment on above: Performed By: #### C BC ####[facility] [address] [address]DrJeffery Nichols LYMPH # 0.2 103/ul Critically low 1.2-3.8 [facility] Comment on above: Performed By: #### C BC ####[facility] [address] [id number] Nichols Lymphocytes/100 WBC (Bld) 5.4 % Critically low 20.5-60.0 [facility] Comment on above: Performed By: #### C BC ####[facility] [address] [place] [address]DrJeffery Nichols MANUAL DIFF REQ NO Normal [facility] Comment on above: Performed By: #### C BC ####[facility] [address] [place] [address]DrJeffery Nichols MCH (RBC) [Entitic mass] 33.8 pg Normal 25.9-34.0 [facility] Comment on above: Performed By: #### C BC ####[facility] [address] [place] [address]Dr. Trevor Nichols MCHC (RBC) [Mass/Vol] 31.9 g/dL Normal 29.9-35.2 [facility] Comment on above: Performed By: #### C BC ####[facility] [address]fr[address]ps[address] [place] [address]DrJeffery Nichols MCV (RBC) [Entitic vol] 105.8 fL Critically high 80.0-94.0 [facility] Comment on above: Performed By: #### C BC ####[facility] [address] [place] [address]DrJeffery Nichols MONO # 0.3 103/ul Normal 0.3-0.8 [facility] Comment on above: Performed By: #### C BC ####[facility] [address] [place] [id number] Nichols Monocytes/100 WBC (Bld) 7.6 % Normal 1.7-12.0 [facility] Comment on above: Performed By: #### C BC ####[facility] [address] [place] [id number]. Trevor Nichols NEUT # 3.6 103/ul Normal 1.4-6.5 [facility] Comment on above: Performed By: #### C BC ####[facility] [address] [place] [id number]. Trevor Nichols Neutrophils/100 WBC (Bld) 80.3 % Critically high 43.0-75.0 [facility] Comment on above: Performed By: #### C BC ####[facility] [address] [place] [address]Dr. Trevor Nichols Platelet mean volume (Bld) [Entitic vol] 10.2 fL Normal 9.5-13.5 [facility] Comment on above: Performed By: #### C BC ####[facility] [address] [place] [address]Dr. Trevor Nichols PLT 192 103/ul Normal 150-450 [facility] Comment on above: Performed By: #### C BC ####[facility] [address] [place] [id number]. Trevor Nichols RBC 3.11 106/ul Critically low 4.70-6.10 [facility] Comment on above: Performed By: #### C BC ####[facility] [address] [place] [id number]. Trevor Nichols WBC 4.5 103/ul Normal 4.0-11.0 [facility] Comment on above: Performed By: #### C BC ####[facility] [address] [place] [id number]. Trevor Nichols CT STROKE HEAD WOon 05-16-20 CT STROKE HEAD WO EXAMINATION: CT STRO [...] by: SHAY BERNSTEIN Date: 2021-05-16 14:45 Normal [facility] CTA NECK WO W CONon 05-16-20 21 CTA NECK WO W CON EXAMINATION: CTA [...] SHAY BERNSTEIN Date: 2021-05-16 16:53 Normal [facility] IRON AND TIBCon 05-16-2021 % SATURATION 16.2 % Normal [facility] Comment on above: Performed By: #### F ETIBC, B12FOL #### [facility] [address] [place] [address] Dr. Trevor Nichols Iron [Mass/Vol] 32.0 ug/dL Critically low 49.0-181.0 [facility] Comment on above: Performed By: #### F ETIBC, B12FOL #### [facility] [address] [place] [address] Dr. Trevor Nichols TIBC DIRECT 198.0 ug/dL Critically low 261.0-497.0 [facility] Comment on above: Performed By: #### F ETIBC, B12FOL #### [facility] [address] [place] [address] Dr. Trevor Nichols PROF CHEM 8 (BAS METB)on Anion gap [Moles/Vol] 14.9 mmol/L Normal [facility] Comment on above: Performed By: #### B MP #### [facility] [address] [place] [address] Dr. Trevor Nichols Calcium [Mass/Vol] 9.2 mg/dL Normal 8.4-10.2 [facility] Comment on above: Performed By: #### B MP #### [facility] [address] [place] [address] Dr. Trevor Nichols Chloride [Moles/Vol] 105 mmol/L Normal 98-107 [facility] Comment on above: Performed By: #### B MP #### [facility] [address] [place] [address] Dr. Trevor Nichols CO2 [Moles/Vol] 21.6 mmol/L Critically low 22.0-30.0 [facility] Comment on above: Performed By: #### B MP #### [facility] [address] [place] [address] [address] Trevor Nichols Creatinine [Mass/Vol] 1.36 mg/dL Critically high 0.66-1.25 [facility] Comment on above: Performed By: #### B MP #### [facility] [address] [place] [address] [address] Trevor Nichols EGFR-AF DJIBOUTIAN >60 Normal >=60 [facility] Comment on above: Performed By: #### B MP #### [facility] [address] [place] [address] [address] Trevor Nichols EGFR-NON AF DJIBOUTIAN 51 mL/min/1.73m2 Critically low >=60 [facility] Comment on above: Performed By: #### B MP #### [facility] [address] [place] [address] [address] Trevor Nichols Glucose [Mass/Vol] 206 mg/dL Critically high 74-106 [facility] Comment on above: Performed By: #### B MP #### [facility] [address] [place] [address] [address] Trevor Nichols Potassium [Moles/Vol] 4.5 mmol/L Normal 3.4-5.0 [facility] Comment on above: Performed By: #### B MP #### [facility] [address] [place] [address] [address] Trevor Nichols Sodium [Moles/Vol] 137 mmol/L Normal 137-145 [facility] Comment on above: Performed By: #### B MP #### [facility] [address] [place] [address] [address] Trevor Nichols Urea nitrogen [Mass/Vol] 26.0 mg/dL Critically high 9.0-20.0 [facility] Comment on above: Performed By: #### B MP #### [facility] [address] [place] [address] [address] Trevor Nichols Urea nitrogen/Creatinine [Mass ratio] 19.1 mg/mg Normal [facility] Comment on above: Performed By: #### B MP #### [facility] [address] [place] [address] Dr. Trevor Nichols VIT B12 AND FOLATEon 021 Cobalamin (Vitamin B12) [Mass/Vol] pg/mL Critically high 239.0-931.0 [facility] Comment on above: Performed By: #### F ETIBC, B12FOL #### [facility] [address] [place] [address] Dr. Trevor Nichols FOLATE 15.40 ng/mL Normal >=2.76 [facility] Comment on above: Performed By: #### F ETIBC, B12FOL #### [facility] [address] [place] [address] Dr. Trevor Nichols BNPon 05-15-2021 Natriuretic peptide B (Bld) [Mass/Vol] 379.0 pg/mL Normal <=900.0 [facility] Comment on above: Performed By: #### H STROPN, BNP, BMP #### [facility] [address] [place] [address] Dr. Trevor Nichols CBC W MANUAL DIFFon 05-15-20 21 ATYPICAL LYMPH # Normal [facility] Comment on above: Performed By: #### H STROPN, BNP, BMP #### [facility] [address] [place] [address] Dr. Trevor Nichols ATYPICAL LYMPH % Normal [facility] Comment on above: Performed By: #### H STROPN, BNP, BMP #### [facility] [address] [place] [address] Dr. Trevor Nichols BAND # 0.0 103/ul Normal 0.0-0.3 [facility] Comment on above: Performed By: #### H STROPN, BNP, BMP #### [facility] [address] [place] [address] Dr. Trevor Nichols BAND % 1 % Normal 0-5 [facility] Comment on above: Performed By: #### H STROPN, BNP, BMP #### [facility] [address] [place] [address] Dr. Trevor Nichols BASOM # 0.00 103/ul Normal 0.00-0.10 [facility] Comment on above: Performed By: #### H STROPN, BNP, BMP #### [facility] [address] [place] [address] [address] Trevor Nichols BASOM % 0.0 % Critically low 0.2-2.0 [facility] Comment on above: Performed By: #### H STROPN, BNP, BMP #### [facility] [address] [place] [address] [address] Trevor Nichols BLAST # Normal [facility] Comment on above: Performed By: #### H STROPN, BNP, BMP #### [facility] [address] [place] [address] Dr. Trevor Nichols BLAST % Normal [facility] Comment on above: Performed By: #### H STROPN, BNP, BMP #### [facility] [address] [place] [address] Dr. Trevor Nichols BRENDA CELLS SLIGHT Normal [facility] Comment on above: Performed By: #### H STROPN, BNP, BMP #### [facility] [address] [place] [address] Dr. Trevor Nichols CORRECTED WBC Normal 4.0-11.0 [facility] Comment on above: Performed By: #### H STROPN, BNP, BMP #### [facility] [address] [place] [address] Dr. Trevor Nichols EOS # 0.05 103/ul Normal 0.00-0.70 [facility] Comment on above: Performed By: #### H STROPN, BNP, BMP #### [facility] [address] [place] [address] Dr. Trevor Nichols EOS% 1.0 % Normal 0.9-7.0 [facility] Comment on above: Performed By: #### H STROPN, BNP, BMP #### [facility] [address] [place] [address] [address] Trevor Nichols HCT 32.5 % Critically low 42.0-54.0 [facility] Comment on above: Performed By: #### H STROPN, BNP, BMP #### [facility] [address] [place] [address] [address] Trevor Nichols HGB 10.5 g/dl Critically low 14.0-18.0 [facility] Comment on above: Performed By: #### H STROPN, BNP, BMP #### [facility] [address] [place] [address] [address] Trevor Nichols HYPOCHROMASIA 2+ Normal [facility] Comment on above: Performed By: #### H STROPN, BNP, BMP #### [facility] [address] [place] [address] [address] Trevor Nichols LYMPHM # 1.03 103/ul Critically low 1.20-3.80 [facility] Comment on above: Performed By: #### H STROPN, BNP, BMP #### [facility] [address] [place] [address] Dr. Trevor Nichols LYMPHM% 22.0 % Normal 20.5-60.0 [facility] Comment on above: Performed By: #### H STROPN, BNP, BMP #### [facility] [address] [place] [address] [address] Trevor Nichols MACROCYTOSIS 2+ Normal [facility] Comment on above: Performed By: #### H STROPN, BNP, BMP #### [facility] [address] [place] [address] [address] Trevor Nichols MCH 34.5 pg Critically high 25.9-34.0 [facility] Comment on above: Performed By: #### H STROPN, BNP, BMP #### [facility] [address] [place] [address] [address] Trevor Nichols MCHC 32.3 g/dl Normal 29.9-35.2 [facility] Comment on above: Performed By: #### H STROPN, BNP, BMP #### [facility] [address] [place] [address] [address] Trevor Nichols MCV 106.9 fL Critically high 80.0-94.0 [facility] Comment on above: Performed By: #### H STROPN, BNP, BMP #### [facility] [address] [place] [address] [address] Trevor Nichols METAMYELOCYTE # Normal [facility] Comment on above: Performed By: #### H STROPN, BNP, BMP #### [facility] [address] [place] [address] [address] Trevor Nichols METAMYELOCYTE % Normal [facility] Comment on above: Performed By: #### H STROPN, BNP, BMP #### [facility] [address] [place] [address] [address] Trevor Nichols MONOM# 1.74 103/ul Critically high 0.30-0.80 [facility] Comment on above: Performed By: #### H STROPN, BNP, BMP #### [facility] [address] [place] [address] Dr. Trevor Nichols MONOM% 37.0 % Critically high 1.7-12.0 [facility] Comment on above: Performed By: #### H STROPN, BNP, BMP #### [facility] [address] [place] [address] [address] Trevor Nichols MPV 10.8 fL Normal 9.5-13.5 [facility] Comment on above: Performed By: #### H STROPN, BNP, BMP #### [facility] [address] [place] [address] Dr. Trevor Nichols MYELOCYTE # Normal [facility] Comment on above: Performed By: #### H STROPN, BNP, BMP #### [facility] [address] [place] [address] [address] Trevor Nichols MYELOCYTE % Normal [facility] Comment on above: Performed By: #### H STROPN, BNP, BMP #### [facility] [address] [place] [address] [address] Trevor Nichols NRBC Normal [facility] Comment on above: Performed By: #### H STROPN, BNP, BMP #### [facility] [address] [place] [address] [address] Trevor Nichols PLT 222 103/ul Normal 150-450 [facility] Comment on above: Performed By: #### H STROPN, BNP, BMP #### [facility] [address] [place] [address] [address] Trevor Nichols POIKILOCYTOSIS 2+ Normal [facility] Comment on above: Performed By: #### H STROPN, BNP, BMP #### [facility] [address] [place] [address] [address] Trevor Nichols RBC 3.04 106/ul Critically low 4.70-6.10 [facility] Comment on above: Performed By: #### H STROPN, BNP, BMP #### [facility] [address] [place] [address] [address] Trevor Nichols RDW 15.6 % Critically high 11.0-15.0 [facility] Comment on above: Performed By: #### H STROPN, BNP, BMP #### [facility] [address] [place] [address] [address] Trevor Nichols SEG # 1.83 103/ul Normal 1.40-6.50 [facility] Comment on above: Performed By: #### H STROPN, BNP, BMP #### [facility] [address] [place] [address] [address] Trevor Nichols SEG % 39.0 % Critically low 43.0-75.0 [facility] Comment on above: Performed By: #### H STROPN, BNP, BMP #### [facility] [address] [place] [address] [address] Trevor Nichols TARGET CELLS 1+ Normal [facility] Comment on above: Performed By: #### H STROPN, BNP, BMP #### [facility] [address] [place] [address] [address] Trevor Nichols TEAR DROP CELLS SLIGHT Normal [facility] Comment on above: Performed By: #### H STROPN, BNP, BMP #### [facility] [address] [place] [address] [address] Trevor Nichols WBC 4.7 103/ul Normal 4.0-11.0 [facility] Comment on above: Performed By: #### H STROPN, BNP, BMP #### [facility] [address] [place], [place] [address] Dr. Trevor Nichols CTA CHEST WO W [...] RAY SAWANT Date: 2021-05-15 11:15 Normal [facility] CULTURE BLOODon 05-15-2021 Microscopic examination of blood, culture Culture Observations: No growth at 5 days. Normal [facility] Comment on above: Performed By: #### H STROPN, BNP, BMP #### [facility] [address] [place], [place] [address] Dr. Trevor Nichols [facility]-18 SARS-CoV-2 (COVID-19) RNA DEVIN+probe Ql (Unsp spec) Not detected Normal NOT DETECTED [facility] Comment on above: Result Comment: When diagnostic testing is negative, the possibility of a false negative should be considered in the context of a patient's recent exposures and the presence of clinical signs and symptoms consistent with SARS-CoV-2. This test is not yet approved or cleared by the [place] Food and Drug Administration (FDA). This test was developed by [employer], [place], [place]. The performance characteristics of this test were validated by [facility]. The results are not intended to be used as the sole means for clinical diagnosis or patient management decisions. [facility] is authorized under Clinical Laboratory Improvement Amendments (CLIA) to perform high- complexity testing. Performed By: #### H STROPN, BNP, BMP #### [facility] [address] [place] [address] [address] Trevor Nichols FREE T3on 05-15-2021 FREE T3 1.66 pg/mlL Critically low 2.77-5.27 [facility] Comment on above: Performed By: #### T SH, FT3 ####[facility] [address] [place] [address]DrJeffery Nichols FREE T4on 05-15-2021 Free T4 [Mass/Vol] 1.06 ng/dL Normal 0.78-2.19 [facility] Comment on above: Performed By: #### F T4 ####[facility] [address] [place] [address]DrJeffery Nichols LACTATE/LACTIC ACIDon 2020 Lactate [Moles/Vol] 1.2 mmol/L Normal 0.7-2.0 [facility] Comment on above: Performed By: #### L ACT ####[facility] [address] [place] [address]DrJeffery Nichols Lactate [Moles/Vol] 1.5 mmol/L Normal 0.7-2.0 [facility] Comment on above: Performed By: #### L ACT ####[facility] [address] [place] [address]DrJeffery Nichols PROF CHEM 8 (BAS METB)on Anion gap [Moles/Vol] 12.5 mmol/L Normal [facility] Comment on above: Performed By: #### H STROPN, BNP, BMP #### [facility] [address] [place] [address] [address] Trevor Nichols Calcium [Mass/Vol] 8.4 mg/dL Normal 8.4-10.2 [facility] Comment on above: Performed By: #### H STROPN, BNP, BMP #### [facility] [address] [place] [address] [address] Trevor Nichols Chloride [Moles/Vol] 106 mmol/L Normal 98-107 [facility] Comment on above: Performed By: #### H STROPN, BNP, BMP #### [facility] [address] [place] [address] [address] Trevor Nichols CO2 [Moles/Vol] 24.8 mmol/L Normal 22.0-30.0 [facility] Comment on above: Performed By: #### H STROPN, BNP, BMP #### [facility] [address] [place] [address] Dr. Trevor Nichols Creatinine [Mass/Vol] 1.37 mg/dL Critically high 0.66-1.25 [facility] Comment on above: Performed By: #### H STROPN, BNP, BMP #### [facility] [address] [place] [address] [address] Trevor Nichols EGFR-AF DJIBOUTIAN >60 Normal >=60 [facility] Comment on above: Performed By: #### H STROPN, BNP, BMP #### [facility] [address] [place] [address] [address] Trevor Nichols EGFR-NON AF DJIBOUTIAN 51 mL/min/1.73m2 Critically low >=60 [facility] Comment on above: Performed By: #### H STROPN, BNP, BMP #### [facility] [address] [place] [address] [address] Trevor Nichols Glucose [Mass/Vol] 114 mg/dL Critically high 74-106 [facility] Comment on above: Performed By: #### H STROPN, BNP, BMP #### [facility] [address] [place] [address] [address] Trevor Nichols Potassium [Moles/Vol] 4.4 mmol/L Normal 3.4-5.0 [facility] Comment on above: Performed By: #### H STROPN, BNP, BMP #### [facility] [address] [place] [address] [address] Trevor Nichols Sodium [Moles/Vol] 139 mmol/L Normal 137-145 [facility] Comment on above: Performed By: #### H STROPN, BNP, BMP #### [facility] [address] [place] [address] [address] Trevor Nichols Urea nitrogen [Mass/Vol] 20.0 mg/dL Normal 9.0-20.0 [facility] Comment on above: Performed By: #### H STROPN, BNP, BMP #### [facility] [address] [place] [address] [address] Trevor Nichols Urea nitrogen/Creatinine [Mass ratio] 14.6 mg/mg Normal [facility] Comment on above: Performed By: #### H STROPN, BNP, BMP #### [facility] [address] [place] [address] [address] Trevor Nichols TROPONIN, HIGH SENSITIVITYon 05-15-2021 HSTROP 7.1 pg/mL Normal 4.0-42.2 [facility] Comment on above: Result Comment: CUT- OFF POINTS HAVE BEEN ESTABLISHED BASED ON THE FOURTH UNIVERSAL DEFINITIONS OF MYOCARDIAL INFARCTION. THE UPPER REFERENCE LIMIT (URL) OF TROPONIN, DEFINED THE 99TH PERCENTILE OF cTnI DISTRIBUTION IN A REFERENCE POPULATION, HAS BEEN CONFIRMED THE DECISION THRESHOLD FOR [place] DIAGNOSIS. Performed By: #### H STROPN, BNP, BMP #### [facility] [address] [address] [address] Trevor Nichols TSHon 05-15-2021 TSH 1.972 uIU/mL Normal 0.470-4.680 [facility] Comment on above: Performed By: #### T SH, FT3 ####[facility] [address] [place] [address]Dr. Trevor Nichols TSH RANGE SEE BELOW Normal [facility] Comment on above: Result Comment: <0.3 4 UIU/ml HYPERTHYROID 0.34-5.60 UIU/ml EUTHYROID >5.60 UIU/ml HYPOTHYROID Performed By: #### T SH, FT3 ####[facility] [address] [place] [address]Dr. Trevor Nichols D-DIMERon 05-14-2021 D-DIMER 0.76 mg/L FEU Critically high 0.19-0.50 [facility] Comment on above: Performed By: #### H STROPN, BNP, BMP #### [facility] [address] [place] [address] [address] Trevor Nichols D-DIMER COMMENTS SEE BELOW Normal [facility] Comment on above: Result Comment: Incr eases [...] By: #### H STROPN, BNP, BMP #### [facility] [address] [place] [address] Dr. Trevor Nichols PROF CHEM 8 (BAS METB)on Anion gap [Moles/Vol] 12.0 mmol/L Normal [facility] Comment on above: Performed By: #### H STROPN, BNP, BMP #### [facility] [address] [place] [address] [address] Trevor Nichols Calcium [Mass/Vol] 8.5 mg/dL Normal 8.4-10.2 [facility] Comment on above: Performed By: #### H STROPN, BNP, BMP #### [facility] [address] [place] [address] [address] Trevor Nichols Chloride [Moles/Vol] 106 mmol/L Normal 98-107 [facility] Comment on above: Performed By: #### H STROPN, BNP, BMP #### [facility] [address] [place] [address] [address] Trevor Nichols CO2 [Moles/Vol] 25.0 mmol/L Normal 22.0-30.0 [facility] Comment on above: Performed By: #### H STROPN, BNP, BMP #### [facility] [address] [place] [address] Dr. Trevor Nichols Creatinine [Mass/Vol] 1.61 mg/dL Critically high 0.66-1.25 [facility] Comment on above: Performed By: #### H STROPN, BNP, BMP #### [facility] [address] [place] [address] Dr. Trevor Nichols EGFR-AF DJIBOUTIAN 51 mL/min/1.73m2 Critically low >=60 [facility] Comment on above: Performed By: #### H STROPN, BNP, BMP #### [facility] [address] [place] [address] Dr. Trevor Nichols EGFR-NON AF DJIBOUTIAN 42 mL/min/1.73m2 Critically low >=60 [facility] Comment on above: Performed By: #### H STROPN, BNP, BMP #### [facility] [address] [place] [address] Dr. Trevor Nichols Glucose [Mass/Vol] 115 mg/dL Critically high 74-106 [facility] Comment on above: Performed By: #### H STROPN, BNP, BMP #### [facility] [address] [place] [address] Dr. Trevor Nichols Potassium [Moles/Vol] 4.0 mmol/L Normal 3.4-5.0 [facility] Comment on above: Performed By: #### H STROPN, BNP, BMP #### [facility] [address] [place] [address] Dr. Trevor Nichols Sodium [Moles/Vol] 139 mmol/L Normal 137-145 [facility] Comment on above: Performed By: #### H STROPN, BNP, BMP #### [facility] [address] [place] [address] Dr. Trevor Nichols Urea nitrogen [Mass/Vol] 20.0 mg/dL Normal 9.0-20.0 [facility] Comment on above: Performed By: #### H STROPN, BNP, BMP #### [facility] [address] [place], [place] [address] Dr. Trevor Nichols Urea nitrogen/Creatinine [Mass ratio] 12.4 mg/mg Normal [facility] Comment on above: Performed By: #### H STROPN, BNP, BMP #### [facility] [address] [place], [place] [address] Dr. Trevor Nichols PROF CHEM 8 (BAS METB)on Anion gap [Moles/Vol] 19.5 mmol/L Normal [facility] Comment on above: Performed By: #### B MP ####[facility] [address] [place] [address]Dr. Trevor Nichols Calcium [Mass/Vol] 9.1 mg/dL Normal 8.4-10.2 [facility] Comment on above: Performed By: #### B MP ####[facility] [address] [place] [address]Dr. Trevor Nichols Chloride [Moles/Vol] 104 mmol/L Normal 98-107 [facility] Comment on above: Performed By: #### B MP ####[facility] Qvfjingvdx1382 [place] [id number]. Trevor Nichols CO2 [Moles/Vol] 19.6 mmol/L Critically low 22.0-30.0 [facility] Comment on above: Performed By: #### B MP ####[facility] Nhszjtgxab1317 [place] [address]DrJeffery Nichols Creatinine [Mass/Vol] 1.69 mg/dL Critically high 0.66-1.25 [facility] Comment on above: Performed By: #### B MP ####[facility] Hekyuhiasy7472 [place] [address]DrJeffery Nichols EGFR-AF DJIBOUTIAN 48 mL/min/1.73m2 Critically low >=60 [facility] Comment on above: Performed By: #### B MP ####[facility] Nynaueimze2651 [place] [address]DrJeffery Nichols EGFR-NON AF DJIBOUTIAN 40 mL/min/1.73m2 Critically low >=60 [facility] Comment on above: Performed By: #### B MP ####[facility] Gnljjklinp1459 [place] [address]Dr. Trevor Nichols Glucose [Mass/Vol] 95 mg/dL Normal 74-106 [facility] Comment on above: Performed By: #### B MP ####[facility] Zqxbgfygij5205 [place] [address]Dr. Trevor Nichols Potassium [Moles/Vol] 5.4 mmol/L Critically high 3.4-5.0 [facility] Comment on above: Performed By: #### B MP ####[facility] Hlauzfgvps5613 [place] [address]Dr. Trevor Nichols Sodium [Moles/Vol] 138 mmol/L Normal 137-145 [facility] Comment on above: Performed By: #### B MP ####[facility] Yaijiojxdj5763 [place] [address]Dr. Trevor Nichols Urea nitrogen [Mass/Vol] 26.0 mg/dL Critically high 9.0-20.0 [facility] Comment on above: Performed By: #### B MP ####[facility] Wqgviwcgeb[address] [place], [place] [address]Dr. Trevor Nichols Urea nitrogen/Creatinine [Mass ratio] 15.4 mg/mg Normal [facility] Comment on above: Performed By: #### B MP ####[facility] Apbosigeck38[address] [place], [place] [address]Dr. Trevor Nichols BNPon 04-29-2021 Natriuretic peptide B (Bld) [Mass/Vol] 421.0 pg/mL Normal <=900.0 [facility] Comment on above: Performed By: #### B ORTHOPHOTO TECH/DRAFTSMAN, MG ####[facility] Njxywlyquq[address] [place], [place] [address]elzbieta Trotter CBC W MANUAL DIFFon 04-29-20 21 ATYPICAL LYMPH # 0.19 103/ul Normal [facility] Comment on above: Performed By: #### C JOBY ####[facility] Wugsattmvh[address] [place], [place] [address]Dick Trotter#### PERSMR ####[facility] Quzvcirowr2716 [place] [address]Dr. Yilan Nichols ATYPICAL LYMPH % 4 % Normal [facility] Comment on above: Performed By: #### C JOBY ####[facility] Gmboynqjtn2299 [place] [address]Gerken [place]#### PERSMR ####[facility] Stcihyesta6463 [place] [address]Dr. Yilan Nichols BAND # 0.2 103/ul Normal 0.0-0.3 [facility] Comment on above: Performed By: #### C JOBY ####[facility] [address]msrs[address] [place] [address] [place]#### PERSMR ####[facility] Qffexldeyf387[address] [place], [place] [address]Dr. Yilan Nichols BAND % 5 % Normal 0-5 [facility] Comment on above: Performed By: #### C JOBY ####[facility] Hwlusaacsv[address] [place] [address] [place]#### PERSMR ####[facility] Nnheklwnkq8[address] [place], [place] [address]Dr. Yilan Nichols BASOM # 0.05 103/ul Normal 0.00-0.10 [facility] Comment on above: Performed By: #### Brodie HEMPHILL ####[facility] [address]vzfhutisw[address] [place] [address] Rose Marei#### PERSMR ####[facility] Oqgvmdttrd9[address] [place], [place] [address]Dr. Yilan Nichols BASOM % 1.0 % Normal 0.2-2.0 [facility] Comment on above: Performed By: #### C JOBY ####[facility] Cudlmcnejm[address] [place] [address] [place]#### PERSMR ####[facility] Vxioztfysv32[address] [place], [place] [address]Dr. Yilan Nichols BLAST # Normal [facility] Comment on above: Performed By: #### C JOBY ####[facility] Rwudwczsqi7443 [address] [place]#### PERSMR ####[facility] Liamvzxvia9438 [place] [address]Dr. Trevor Nichols BLAST % Normal [facility] Comment on above: Performed By: #### C JOYB ####[facility] Nlxssqmsnv8153 [place] [address]Gerken [place]#### PERSMR ####[facility] Ftepvysvaw0276 [place] [address]Dr. Trevor Nichols CORRECTED WBC Normal 4.0-11.0 [facility] Comment on above: Performed By: #### C JOBY ####[facility] [address]szvzyblrf[address] [place] [address] [place]#### PERSMR ####[facility] Bckovyoqrw904[address] [place], [place] [address]Dr. Trevor Nichols EOS # 0.00 103/ul Normal 0.00-0.70 [facility] Comment on above: Performed By: #### Brodie HEMPHILL ####[facility] Gyycnmppzq[address] [place] [address] [place]#### PERSMR ####[facility] Ssoujcdglj516[address] [place], [place] [address]Dr. Trevor Nichols EOS% 0.0 % Critically low 0.9-7.0 [facility] Comment on above: Performed By: #### Brodie HEMPHILL ####[facility] Ufnokykqvn762[address] [place] [address] [place]#### PERSMR ####[facility] Tfhnoeampc0745 [place] [address]Dr. Trevor Nichols HCT 35.7 % Critically low 42.0-54.0 [facility] Comment on above: Performed By: #### C JOBY ####[facility] Fjhawyumnf00[address] [place] [address] [place]#### PERSMR ####[facility] Jhwffdtiaz25[address] [place], [place] [address]Dr. Trevor Nichols HGB 11.7 g/dl Critically low 14.0-18.0 [facility] Comment on above: Performed By: #### Brodie HEMPHILL ####[facility] Oemwgyyzza8738 [address] [place]#### PERSMR ####[facility] Noxucrokvd7566 [place] [address]Dr. Trevor Nichols LYMPHM # 0.72 103/ul Critically low 1.20-3.80 [facility] Comment on above: Performed By: #### C JOBY ####[facility] Fftzfeqaxa9[address] [place] [address] [place]#### PERSMR ####[facility] Txcloalzdd3625[address] [place], [place] [address]Dr. Trevor Nichols LYMPHM% 15.0 % Critically low 20.5-60.0 [facility] Comment on above: Performed By: #### Brodie HEMPHILL ####[facility] Cmsdfnjigo16[address] [place] [address] [place]#### PERSMR ####[facility] Vkmrqfounh8[address] [place], [place] [address]Dr. Trevor Nichols MCH 34.4 pg Critically high 25.9-34.0 [facility] Comment on above: Performed By: #### Brodie EHMPHILL ####[facility] Fsdpjxkzvd[address] [place] [address] [place]#### PERSMR ####[facility] Mcuheuyczy737[address] [place], [place] [address]Dr. Trevor Nichols MCHC 32.8 g/dl Normal 29.9-35.2 [facility] Comment on above: Performed By: #### C JOBY ####[facility] Rthqjbcaxh8[address] [place] [address] [place]#### PERSMR ####[facility] Jemsjralto29[address] [place], [place] [address]Dr. Trevor Nichols MCV 105.0 fL Critically high 80.0-94.0 [facility] Comment on above: Performed By: #### Brodie HEMPHILL ####[facility] Ctmfjaevjc4270 [place] [address]Gerken [place]#### PERSMR ####[facility] Xbnuordeow0678 [place] [address]Dr. Trevor Nichols METAMYELOCYTE # Normal [facility] Comment on above: Performed By: #### Brodie HEMPHILL ####[facility] Rjlpmqejhk1185 [place] [address]Gerken [place]#### PERSMR ####[facility] Ujcryrvnry1411 [place] [address]Dr. Trevor Nichols METAMYELOCYTE % Normal [facility] Comment on above: Performed By: #### Brodie HEMPHILL ####[facility] Wzutqpweur[address] [place] [address] [place]#### PERSMR ####[facility] Ffdnxaacsq2224[address] [place], [place] [address]Dr. Trevor Nichols MONOM# 1.25 103/ul Critically high 0.30-0.80 [facility] Comment on above: Performed By: #### Brodie HEMPHILL ####[facility] Lkbeuvxnlj45[address] [place] [address] [place]#### PERSMR ####[facility] Iiznxddkft148[address] [place], [place] [address]Dr. Trevor Nichols MONOM% 26.0 % Critically high 1.7-12.0 [facility] Comment on above: Performed By: #### Brodie HEMPHILL ####[facility] Znytftiofd9932[address] [place] [address] [place]#### PERSMR ####[facility] Uqxcomuqft46[address] [place], [place] [address]Dr. Trevor Nichols MPV 10.5 fL Normal 9.5-13.5 [facility] Comment on above: Performed By: #### Brodie HEMPHILL ####[facility] Azunyknmyt4237 [address] [place]#### PERSMR ####[facility] Uoihwgafkj1020[address] [place], [place] [address]Dr. Trevor Nichols MYELOCYTE # Normal [facility] Comment on above: Performed By: #### Brodie HEMPHILL ####[facility] Bsvykccchj5488 [address] [place]#### PERSMR ####[facility] Drpkafoweb0750 [place] [address]Dr. Trevor Nichols MYELOCYTE % Normal [facility] Comment on above: Performed By: #### Brodie HEMPHILL ####[facility] Defsrnjmvi4874 [address] [place]#### PERSMR ####[facility] Ethvbsghum9823 [place] [address]Dr. Trevor Nichols NRBC Normal [facility] Comment on above: Performed By: #### C JOBY ####[facility] Sfsuwopwyb7116 [address] [place]#### PERSMR ####[facility] Uwvoudzubk345[address] [place], [place] [address]Dr. Trevor Nichols PATH REVIEW INDICATED Normal [facility] Comment on above: Performed By: #### Brodie HEMPHILL ####[facility] Vzbbrzvwph[address] [place] [address] [place]#### PERSMR ####[facility] Xqedmmnsna6[address] [place], [place] [address]Dr. Trevor Nichols PLT 158 103/ul Normal 150-450 [facility] Comment on above: Performed By: #### Brodie HEMPHLIL ####[facility] Qaaspunidv1788 [address] [place]#### PERSMR ####[facility] Odyotqoiyq3941 [place] [address]Dr. Trevor Nichols RBC 3.40 106/ul Critically low 4.70-6.10 [facility] Comment on above: Performed By: #### Brodie HEMPHILL ####[facility] Xyutomzmnf3551 [address] [place]#### PERSMR ####[facility] Nxxlazxjyf2856 [place] [address]Dr. Trevor Nichols RDW 15.6 % Critically high 11.0-15.0 [facility] Comment on above: Performed By: #### C JOBY ####[facility] Auspfzfhcd88[address] [place] [address] [place]#### PERSMR ####[facility] Muqxdthpxj9965 [place] [address]Dr. Trevor Nichols SEG # 2.35 103/ul Normal 1.40-6.50 [facility] Comment on above: Performed By: #### C JOBY ####[facility] Ocfrbilkev2[address] [place] [address] [place]#### PERSMR ####[facility] Qoawsqccnt13[address] [place], [place] [address]Dr. Trevor Nichols SEG % 49.0 % Normal 43.0-75.0 [facility] Comment on above: Performed By: #### C JOBY ####[facility] Wqlbfzgqqm65[address] [place] [address] [place]#### PERSMR ####[facility] Qvadhylapn55[address] [place], [place] [address]Dr. Trevor Nichols WBC 4.8 103/ul Normal 4.0-11.0 [facility] Comment on above: Performed By: #### Brodie HEMPHILL ####[facility] Ftalgmiydt19[address] [place] [address] [place]#### PERSMR ####[facility] Scjlemfoee5[address] [place], [place] [address]Dr. Trevor Nichols MAGNESIUMon 04-29-2021 Magnesium [Mass/Vol] 2.4 mg/dL Critically high 1.6-2.3 [facility] Comment on above: Performed By: #### B ORTHOPHOTO TECH/DRAFTSMAN, MG ####[facility] Xhejsqlaoe54[address] [place] [address] [place] PERIPHERAL SMEARon Pathologist Cyto stain Nom (Cvx/Vag) [ID] DR. BHARTI PARDO Normal [facility] Comment on above: Result Comment: Kate pheral blood smear reveals isolated monocytosis with unremarkable morphology. The neutrophils and platelets are morphologically unremarkable. No atypical lymphocytes or blasts are noted. A reactive process is favored. Clinical correlation is suggested. Dr Bharti Pardo 05/01/2021 Performed By: #### Brodie HEMPHILL ####[facility] Gvfuysymdn1258 [address] [place]#### PERSMR ####[facility] Khphdhdntm0385 [place], [place] [address]OfJeffery Nichols VITAMIN D 25 OHon 04-29-2021 VIT D 25-OH 71.4 ng/mL Normal [facility] Comment on above: Performed By: #### V ITAD ####[facility] Fpnqreibjd6625 [place] [address]Gerken [place] VIT D RANGES SEE BELOW Normal [facility] Comment on above: Result Comment: <20 ng/mL Vit D deficient 20 - <30 ng/mL Vit D insufficient 30 - 100 ng/mL Vit D sufficient >100 ng/mL Potential Toxicity Performed By: #### V ITAD ####[facility] Czqgllvevc4373 [address] [place] POC GLUCOSE LABon 06-30-2020 Glucose [Mass/Vol] 108 mg/dL High 70-100 [facility] Comment on above: Performed By: #### 4 1000, 81377 #### [facility] [address] [facility] [place] [address], [facility] Glucose [Mass/Vol] 165 mg/dL High 70-100 [facility] Comment on above: Performed By: #### 4 1000, 81349 #### [facility] [address] [facility] [place] [address], [facility] C REACTIVE PROTEINon 020 CRP [Mass/Vol] 27.8 mg/L High 0.0-7.0 [facility] Comment on above: Order Comment: No: D o not add to previous draw Performed By: #### 4 1000, 24509, 45414 #### [facility] [address] [place] [address], [facility] CBC COMPLETE BLOOD COUNTon 08-29-2019 Erythrocyte distribution width (RBC) [Ratio] 14.3 % Normal 11.5-15.0 [facility] Comment on above: Order Comment: No: D o not add to previous draw Performed By: #### 4 1000, 49858 #### [facility] [address] [place] [id number], [facility] Hematocrit (Bld) [Volume fraction] 34.7 % Low 39.0-50.0 [facility] Comment on above: Order Comment: No: D o not add to previous draw Performed By: #### 4 1000, 32799 #### [facility] [address] [place] [address], [facility] Hemoglobin (Bld) [Mass/Vol] 11.6 g/dL Low 13.0-17.0 [facility] Comment on above: Order Comment: No: D o not add to previous draw Performed By: #### 4 1000, 42302 #### [facility] [address] [place] [address], [facility] MCH (RBC) [Entitic mass] 35.5 pg High 27.0-33.0 [facility] Comment on above: Order Comment: No: D o not add to previous draw Performed By: #### 4 1000, 32936 #### [facility] [address] [facility] [place] [id number], [facility] MCHC (RBC) [Mass/Vol] 33.4 g/dL Normal 32.0-35.0 [facility] Comment on above: Order Comment: No: D o not add to previous draw Performed By: #### 4 1000, 60742 #### [facility] [address] [place] [address], [facility] MCV (RBC) [Entitic vol] 106.1 fL High 82.0-98.0 [facility] Comment on above: Order Comment: No: D o not add to previous draw Performed By: #### 4 1000, 05947 #### [facility] [address] [place] [address], [facility] Nucleated RBC/100 WBC (Bld) [Ratio] 0 % Normal 0-0 [facility] Comment on above: Order Comment: No: D o not add to previous draw Performed By: #### 4 1000, 10254 #### [facility] [address] [facility] [place] [address], [facility] PLAT CNT 150 10*3/uL Normal 150-400 [facility] Comment on above: Order Comment: No: D o not add to previous draw Performed By: #### 4 1000, 44828 #### [facility] [address] [facility] [place] [address], [facility] RBC (Bld) [#/Vol] 3.27 10*6/uL Low 4.20-5.70 [facility] Comment on above: Order Comment: No: D o not add to previous draw Performed By: #### 4 1000, 99019 #### [facility] [address] [facility] [place] [address], [facility] WBC (Bld) [#/Vol] 5.86 10*3/uL Normal 4.00-10.60 [facility] Comment on above: Order Comment: No: D o not add to previous draw Performed By: #### 4 1000, 98867 #### [facility] [address] [facility] [place] [address], [facility] CPKon 06-29-2020 CK [Catalytic activity/Vol] 45 U/L Normal 30-223 [facility] Comment on above: Order Comment: Unkno wn Performed By: #### 9 9909, 50923, 82552, 82983 #### [facility] [address] BRAIN WO CONTRASTon 06-29 CT BRAIN WO CONTRAST [facility] Department of Radiology [address] [place] [id number] == Patient Name: CHIKI JUAREZ : 1945 Sex: M Age: Race: White Pt. Location: [id number] Patient Status: I Ordered Date: 06/29/2020 9:20:00 AM Completed Date: 06/29/2020 07:10 PM Requesting Provider: MARIA ELENA LEDESMA Attending Provider: MYA BHAKTA Report Copy To: Signs & Symptoms: Stroke(CVA) History: See Comments Comments: CVA Exam: CT BRAIN WO CONTRAST == CT BRAIN WO CONTRAST 06/29/2020 7:10 PM [...] region. Electronically signed: Aleta Armas. Transcribed by: [id number], User Resident: Electronically Signed by: ALETA ARMAS @ 06/29/2020 07:16 PM Normal [facility] Comment on above: Order Comment: No: D o not add to previous draw D DIMER TESTon 06-29-2020 D-DIMER TEST 1.44 mcg/mL FEU High 0.27-0.49 [facility] Comment on above: Order Comment: No: D o not add to previous draw Result Comment: D-Di fide values of less than 0.50 ug/ml (FEU) are considered to be a negative predictor of thrombosis. However, the D-Dimer result should be used in conjunction with pretest probability and should not be used alone to diagnose a thrombotic event. Performed By: #### 4 1000, 66157, 16069 #### [facility] [address] [place] [address], [facility] FERRITINon 06-29-2020 Ferritin [Mass/Vol] 271 ng/mL Normal 24-336 [facility] Comment on above: Order Comment: Unkno wn Performed By: #### 9 9909, 95361, 35209, 94872 #### [facility] [address] [place] [address], [facility] LDH BLOODon 06-29-2020 LDH 148 Units/L Normal 140-271 [facility] Comment on above: Order Comment: Unkno wn Performed By: #### 9 9909, 61782, 74479, 59441 #### [facility] [address] [place] [address], [facility] LIPID PROFILEon 06-29-2020 Cholesterol [Mass/Vol] 176 mg/dL Normal 120-200 [facility] Comment on above: Order Comment: No: D o not add to previous draw Result Comment: CHOL ESTEROL REFERENCE RANGE: 20 YEARS AND OLDER CARDIOVASCULAR RISK Less than 200 mg/dl Low Risk 200 to 239 mg/dl Borderline Risk 240 mg/dl and greater High Risk Performed By: #### 4 1000, 97011, 51850 #### [facility] [address] [place] [address], [facility] Cholesterol in HDL [Mass/Vol] 39 mg/dL Normal 23-92 [facility] Comment on above: Order Comment: No: D o not add to previous draw Result Comment: Slig ht variation in normal range could be due to gender and/or age. HDL CHOLESTEROL REFERENCE RANGE: 20 years and older Cardiovascular Risk > or =60 mg/dL Desirable 40 TO 59 mg/dL Low Risk <40 mg/dL High Risk Performed By: #### 4 1000, , 86165 #### [facility] [address] [place] [address], [facility] Cholesterol in LDL [Mass/Vol] 100 mg/dL Normal 0-130 [facility] Comment on above: Order Comment: No: D o not add to previous draw Result Comment: LDL IS A CALCULATION LDL IS ONLY VALID IF THE TRIG IS LESS THAN 400. Performed By: #### 4 1000, , 19613 #### [facility] [address] [place] [address], [facility] Cholesterol.total/Cho lesterol in HDL [Mass ratio] 4.5 {ratio} Normal 0.0-4.5 [facility] Comment on above: Order Comment: No: D o not add to previous draw Performed By: #### 4 1000, , 89820 #### [facility] [address] [place] [address], [facility] NON-HDL CHOLESTEROL 137 mg/dL Normal [facility] Comment on above: Order Comment: No: D o not add to previous draw Performed By: #### 4 1000, , 28192 #### [facility] [address] [place] [address], [facility] Triglyceride [Mass/Vol] 187 mg/dL High 40-149 [facility] Comment on above: Order Comment: No: D o not add to previous draw Result Comment: TRIG LYCERIDE REFERENCE RANGE: 20 YEARS AND OLDER CARDIOVASCULAR RISK LESS THAN 150 mg/dl LOW RISK 150 TO 199 mg/dl BORDERLINE RISK 200 mg/dl AND GREATER HIGH RISK Performed By: #### 4 1000, , 77584 #### [facility] [address] [place] [address], [place] VLDL CHOL 37 mg/dL Normal 0-40 [facility] Comment on above: Order Comment: No: D o not add to previous draw Performed By: #### 4 1000, , 55667 #### [facility] [address] [place] [address], [facility] LIVER BATTERYon 06-29-2020 Albumin [Mass/Vol] 3.4 g/dL Low 3.5-5.7 [facility] Comment on above: Order Comment: Unkno wn Performed By: #### 9 9909, 88946, 41988, 17752 #### [facility] [address] [place] [address], [facility] ALKALINE PHOSPH 60 IU/L Normal 34-104 [facility] Comment on above: Order Comment: Unkno wn Performed By: #### 9 9909, 13512, 01100, 14770 #### [facility] [address] [place] [address], [facility] ALT [Catalytic activity/Vol] 8 U/L Normal 7-52 [facility] Comment on above: Order Comment: Unkno wn Performed By: #### 9 9909, 54442, 34072, 88790 #### [facility] [address] [place] [address], [facility] AST [Catalytic activity/Vol] 11 U/L Low 13-39 [facility] Comment on above: Order Comment: Unkno wn Performed By: #### 9 9909, 96603, 54356, 80671 #### [facility] [address] [place] [address], [place] Bilirubin [Mass/Vol] 0.5 mg/dL Normal 0.3-1.0 [facility] Comment on above: Order Comment: Unkno wn Performed By: #### 9 9909, 53168, 12357, 10314 #### [facility] [address] [place] [address], [place] Bilirubin.direct [Mass/Vol] 0.1 mg/dL Normal 0.0-0.2 [facility] Comment on above: Order Comment: Unkno wn Performed By: #### 9 9909, 83399, 33940, 03028 #### [facility] [address] [facility] [place] [address], [facility] Protein [Mass/Vol] 5.8 g/dL Low 6.0-8.3 [facility] Comment on above: Order Comment: Unkno wn Performed By: #### 9 9909, 77262, 42531, 89267 #### [facility] [address] [facility] [address], [place] POC GLUCOSE LABon 06-29-2020 Glucose [Mass/Vol] 112 mg/dL High 70-100 [facility] Comment on above: Performed By: #### 4 1000, 68911 #### [facility] [address] [facility] [place] [address], [place] Glucose [Mass/Vol] 105 mg/dL High 70-100 [facility] Comment on above: Performed By: #### 4 1000, 81954 #### [facility] [address] [facility] [place] [address], [facility] Glucose [Mass/Vol] 94 mg/dL Normal 70-100 [facility] Comment on above: Performed By: #### 4 1000, 12669, 16678 #### [facility] [address] [facility] [place] [address], [place] Glucose [Mass/Vol] 121 mg/dL High 70-100 [facility] Comment on above: Performed By: #### 4 1000, [id number] #### [facility] [address] [facility] [place] [address], [facility] PORTABLE CHEST 1 VIEWon 06-17 PORTABLE CHEST 1 VIEW [facility] Department of Radiology [address] [place] [address] == Patient Name: CHIKI JUAREZ : 1945 Sex: M Age: Race: White Pt. Location: [id number] Patient Status: I Ordered Date: 06/29/2020 5:45:00 PM Completed Date: 06/29/2020 07:48 PM Requesting Provider: DAVIE HAMMOND Attending Provider: MYA BHAKTA Report Copy To: Signs & Symptoms: Post OP History: Comments: Check Pacemaker/AICD Lead Position Exam: PORTABLE CHEST 1 VIEW == PORTABLE CHEST 1 VIEW 06/29/2020 7:48 PM [...] placement. Electronically signed: Aleta Armas. Transcribed by: [email or web address], User Resident: Electronically Signed by: ALETA ARMAS @ 06/29/2020 08:15 PM Normal [facility] Comment on above: Order Comment: No: D o not add to previous draw BASIC METABOLIC PANELon 06-17 Calcium [Mass/Vol] 8.8 mg/dL Normal 8.6-10.3 [facility] Comment on above: Order Comment: No: D o not add to previous draw Performed By: #### 4 1000, 28675, 85964 #### [facility] [address] [place] [address], [facility] Chloride [Moles/Vol] 102 mmol/L Normal 98-107 [facility] Comment on above: Order Comment: No: D o not add to previous draw Performed By: #### 4 1000, 21790, 28021 #### [facility] [address] [place] [address], [place] CO2 [Moles/Vol] 24 mmol/L Normal 21-31 [facility] Comment on above: Order Comment: No: D o not add to previous draw Performed By: #### 4 1000, , 34370 #### [facility] [address] [place] [address], [place] Creatinine [Mass/Vol] 1.31 mg/dL High 0.70-1.30 [facility] Comment on above: Order Comment: No: D o not add to previous draw Performed By: #### 4 1000, , 32691 #### [facility] [address] [place] [address], [place] GFR/1.73 sq M predicted among blacks MDRD (S/P/Bld) [Vol rate/Area] mL/min/{1.73_m2} Normal >60 [facility] Comment on above: Order Comment: No: D o not add to previous draw Result Comment: Calc ulation may not be valid for patients over 70 years Performed By: #### 4 1000, , 95523 #### [facility] [address] [place] [address], [place] GFR/1.73 sq M predicted among non-blacks MDRD (S/P/Bld) [Vol rate/Area] 54 ml/min/1.73sq m Abnormal >60 [facility] Comment on above: Order Comment: No: D o not add to previous draw Result Comment: Calc ulation may not be valid for patients over 70 years Performed By: #### 4 1000, , 81543 #### [facility] [address] [place] [address], [place] Glucose [Mass/Vol] 96 mg/dL Normal 70-100 [facility] Comment on above: Order Comment: No: D o not add to previous draw Performed By: #### 4 1000, , 29997 #### [facility] [address] [place] [address], [place] Potassium [Moles/Vol] 4.3 mmol/L Normal 3.5-5.1 [facility] Comment on above: Order Comment: No: D o not add to previous draw Performed By: #### 4 1000, , 03970 #### [facility] [address] [place] [address], [place] Sodium [Moles/Vol] 133 mmol/L Low 136-145 [facility] Comment on above: Order Comment: No: D o not add to previous draw Performed By: #### 4 1000, , #### [facility] [address] [place] [address], [place] Urea nitrogen [Mass/Vol] 26 mg/dL High 7-25 [facility] Comment on above: Order Comment: No: D o not add to previous draw Performed By: #### 4 1000, , 87175 #### [facility] [address] [place] [id number], [facility] CBC COMPLETE BLOOD COUNTon 08-28-2019 Erythrocyte distribution width (RBC) [Ratio] 14.4 % Normal 11.5-15.0 [facility] Comment on above: Order Comment: No: D o not add to previous draw Performed By: #### 4 1000, , 90051 #### [facility] [address] [place] [address], [place] Hematocrit (Bld) [Volume fraction] 35.2 % Low 39.0-50.0 [facility] Comment on above: Order Comment: No: D o not add to previous draw Performed By: #### 4 1000, , 05059 #### [facility] [address] [place] [address], [place] Hemoglobin (Bld) [Mass/Vol] 11.8 g/dL Low 13.0-17.0 [facility] Comment on above: Order Comment: No: D o not add to previous draw Performed By: #### 4 1000, , 80458 #### [facility] [address] [facility]. [address] MCH (RBC) [Entitic mass] 35.5 pg High 27.0-33.0 [facility] Comment on above: Order Comment: No: D o not add to previous draw Performed By: #### 4 1000, , 32187 #### [facility] [address] [facility] [place] [address], [facility] MCHC (RBC) [Mass/Vol] 33.5 g/dL Normal 32.0-35.0 [facility] Comment on above: Order Comment: No: D o not add to previous draw Performed By: #### 4 1000, , #### [facility] [address] [facility]. [address] MCV (RBC) [Entitic vol] 106.0 fL High 82.0-98.0 [facility] Comment on above: Order Comment: No: D o not add to previous draw Performed By: #### 4 999, , 00211 #### [facility] [address] [facility]. [address] Nucleated RBC/100 WBC (Bld) [Ratio] 0 % Normal 0-0 [facility] Comment on above: Order Comment: No: D o not add to previous draw Performed By: #### 4 1000, , 26587 #### [facility] [address] [facility] [place] [address], [facility] PLAT CNT 158 10*3/uL Normal 150-400 [facility] Comment on above: Order Comment: No: D o not add to previous draw Performed By: #### 4 1000, , 92350 #### [facility] [address] [facility] [place] [address], [place] RBC (Bld) [#/Vol] 3.32 10*6/uL Low 4.20-5.70 [facility] Comment on above: Order Comment: No: D o not add to previous draw Performed By: #### 4 1000, 88464, 35524 #### [facility] [address] [place] [address], [facility] WBC (Bld) [#/Vol] 7.25 10*3/uL Normal 4.00-10.60 [facility] Comment on above: Order Comment: No: D o not add to previous draw Performed By: #### 4 1000, 91996, 18774 #### [facility] [address] [place], [place] [id number] [place] [address] Cardiovascular Lab Reporton 06-28-2020 Cardiovascular Lab Report [facility] Patient Name: Chiki Juarez [facility] MR #: [id number] Physician: Connor Carrera MD Department of Service Date: 06/28/2020 Medicine Birthdate: 1945 Division of Room #: 3CD 189837 Cardiology Adult Cardiovascular Services [place] [address] Cardiovascular Laboratory Report DUAL CHAMBER PACEMAKER IMPLANT PROCEDURE NOTE DATE OF PROCEDURE: 06/28/2020 PERFORMING PHYSICIAN: Dr. Connor Carrera CONSENT: Patient LOCATION: EP Lab PROCEDURE PERFORMED: 1. Implantation of pacemaker ([employer]) 2. Ultrasound guided venous access INDICATIONS: [...] using modified seldinger technique using a 5 Ghanaian micro-puncture needle on two occasions and 0.24 [...] was made enough for the device. 6 [place]ian Safesheaths were placed over the wire. An active fixation [employer] pacing lead was then delivered through the 6Fsheath to the right ventricle. After confirmation of lead position on orthogonal views (PARK and PARAGUAYAN) to confirm septal position, the screw was activated, and the lead was placed in the right ventricular mid cavity towards the septum. After confirmation of good sensing parameters, injury pattern and pacing thresholds, 10V pacing was done and no diaphragmatic stimulation was noted. It was then secured in the pocket using three 1-0 Silk sutures. Then an active fixation [employer] lead was delivered through the 6Fsheath to the right atrial appendage. After confirmation of lead position on orthogonal views (PARK and PARAGUAYAN), the screw was activated. After confirmation of [...] immediate procedural complications were noted. Device info: [employer] Accolade MRI EL Model# L331 Serial# [id number] RA lead: Model# [id number] (45cms) Serial# [id number] Sensin.7mV Threshold: 0.9V@0.4ms Impedance: 666Ohms RV lead: Model# [id number](52cms) Serial# [id number] Sensin.1mV Threshold: 0.4V@0.4ms Impedance: 746Ohms POST PROCEDURE [...] Carrera MD Date Trans: 06/28/2020 03:33 P/alondra [id number] cc: Will Sherwood M.D. [address] [place] [id number] Normal [facility] MAGNESIUM BLOODon 06-28-2020 Magnesium [Mass/Vol] 2.1 mg/dL Normal 1.9-2.7 [facility] Comment on above: Order Comment: No: D o not add to previous draw Performed By: #### 4 1000, 92724, 13262 #### [facility] [address] PHOSPHORUS BLOODon 0 Phosphate [Mass/Vol] 3.7 mg/dL Normal 2.5-5.0 [facility] Comment on above: Order Comment: No: D o not add to previous draw Performed By: #### 4 1000, 13414, 90371 #### [facility] [address] [place] [address], [facility] POC GLUCOSE LABon 06-28-2020 Glucose [Mass/Vol] 93 mg/dL Normal 70-100 [facility] Comment on above: Performed By: #### 4 1000, 09264 #### [facility] [address] [place] [address], [facility] Glucose [Mass/Vol] 90 mg/dL Normal 70-100 [facility] Comment on above: Performed By: #### 4 1000, 36598 #### [facility] [address] [place] [address], [place] Glucose [Mass/Vol] 97 mg/dL Normal 70-100 [facility] Comment on above: Performed By: #### 4 1000, 19651 #### [facility] [address] [place] [address], [facility] Glucose [Mass/Vol] 99 mg/dL Normal 70-100 [facility] Comment on above: Performed By: #### 4 1000, 36408 #### [facility] [address] [facility] [place] [address], [facility] APTTon 06-27-2020 aPTT Coag (Bld) [Time] 34.8 s Normal 25.0-35.0 [facility] Comment on above: Order Comment: No: D [...] THIS PURPOSE. Performed By: #### 4 1000, 49844 #### [facility] [address] [place] [address], [facility] BASIC METABOLIC PANELon 06-17 Calcium [Mass/Vol] 9.1 mg/dL Normal 8.6-10.3 [facility] Comment on above: Order Comment: No: D o not add to previous draw Performed By: #### 4 1000, 67945, 61030 #### [facility] [address] [place] [address], [place] Chloride [Moles/Vol] 104 mmol/L Normal 98-107 [facility] Comment on above: Order Comment: No: D o not add to previous draw Performed By: #### 4 1000, 62633, 69578 #### [facility] [address] [place] [address], [place] CO2 [Moles/Vol] 23 mmol/L Normal 21-31 [facility] Comment on above: Order Comment: No: D o not add to previous draw Performed By: #### 4 1000, 06389, 47711 #### [facility] [address] [place] [address], [place] Creatinine [Mass/Vol] 1.21 mg/dL Normal 0.70-1.30 [facility] Comment on above: Order Comment: No: D o not add to previous draw Performed By: #### 4 1000, 00134, 18489 #### [facility] [address] [place] [address], [place] GFR/1.73 sq M predicted among blacks MDRD (S/P/Bld) [Vol rate/Area] mL/min/{1.73_m2} Normal >60 [facility] Comment on above: Order Comment: No: D o not add to previous draw Result Comment: Calc ulation may not be valid for patients over 70 years Performed By: #### 4 1000, 47708, 30410 #### [facility] [address] [place] [address], [place] GFR/1.73 sq M predicted among non-blacks MDRD (S/P/Bld) [Vol rate/Area] 59 ml/min/1.73sq m Abnormal >60 [facility] Comment on above: Order Comment: No: D o not add to previous draw Result Comment: Calc ulation may not be valid for patients over 70 years Performed By: #### 4 1000, , 14183 #### [facility] [address] [place] [address], [facility] Glucose [Mass/Vol] 132 mg/dL High 70-100 [facility] Comment on above: Order Comment: No: D o not add to previous draw Performed By: #### 4 1000, , 23009 #### [facility] [address] [place] [address], [facility] Potassium [Moles/Vol] 5.2 mmol/L High 3.5-5.1 [facility] Comment on above: Order Comment: No: D o not add to previous draw Performed By: #### 4 1000, , 31753 #### [facility] [address] [place] [address], [facility] Sodium [Moles/Vol] 135 mmol/L Low 136-145 [facility] Comment on above: Order Comment: No: D o not add to previous draw Performed By: #### 4 1000, , 31186 #### [facility] [address] [facility] [place] [address], [facility] Urea nitrogen [Mass/Vol] 21 mg/dL Normal 7-25 [facility] Comment on above: Order Comment: No: D o not add to previous draw Performed By: #### 4 1000, , 83535 #### [facility] [address] C REACTIVE PROTEINon 020 CRP [Mass/Vol] 40.5 mg/L High 0.0-7.0 [facility] Comment on above: Order Comment: No: D o not add to previous draw Performed By: #### 4 1000, , 31022 #### [facility] [address] [place] [address], [facility] CBC W/DIFFon 06-27-2020 ABS BASOPHILS 0.0 10*3/uL Normal 0.0-0.2 [facility] Comment on above: Order Comment: No: D o not add to previous draw Performed By: #### 4 1000, 65204 #### [facility] [address] [place] [address], [place] ABS NEUTROPHILS 4.5 10*3/uL Normal 1.6-7.6 [facility] Comment on above: Order Comment: No: D o not add to previous draw Performed By: #### 4 1000, 46325 #### [facility] [address] [place] [address], [place] Basophils/100 WBC (Bld) 0.0 % Normal 0.0-1.0 [facility] Comment on above: Order Comment: No: D o not add to previous draw Performed By: #### 4 1000, 31631 #### [facility] [address] [place] [address], [place] Eosinophils (Bld) [#/Vol] 0.0 10*3/uL Normal 0.0-0.5 [facility] Comment on above: Order Comment: No: D o not add to previous draw Performed By: #### 4 1000, 80475 #### [facility] [address] [place] [address], [place] Eosinophils/100 WBC (Bld) 0.0 % Normal 0.0-6.0 [facility] Comment on above: Order Comment: No: D o not add to previous draw Performed By: #### 4 1000, 62790 #### [facility] [address] [place] [address], [place] Erythrocyte distribution width (RBC) [Ratio] 14.1 % Normal 11.5-15.0 [facility] Comment on above: Order Comment: No: D o not add to previous draw Performed By: #### 4 1000, 54692 #### [facility] [address] [place] [address], [place] GIANT PLATELETS Present Normal [facility] Comment on above: Order Comment: No: D o not add to previous draw Performed By: #### 4 1000, 69362 #### [facility] [address] [place] [id number], [facility] Hematocrit (Bld) [Volume fraction] 36.0 % Low 39.0-50.0 [facility] Comment on above: Order Comment: No: D o not add to previous draw Performed By: #### 4 1000, 35105 #### [facility] [address] [place] [address], [facility] Hemoglobin (Bld) [Mass/Vol] 11.8 g/dL Low 13.0-17.0 [facility] Comment on above: Order Comment: No: D o not add to previous draw Performed By: #### 4 1000, 77026 #### [facility] [address] [place] [address], [facility] Lymphocytes (Bld) [#/Vol] 0.5 10*3/uL Low 1.2-4.0 [facility] Comment on above: Order Comment: No: D o not add to previous draw Performed By: #### 4 1000, 35216 #### [facility] [address] [facility] [place] [address], [facility] Lymphocytes/100 WBC (Bld) 8.2 % Low 20.0-45.0 [facility] Comment on above: Order Comment: No: D o not add to previous draw Performed By: #### 4 1000, 71732 #### [facility] [address] [place] [address], [place] MCH (RBC) [Entitic mass] 35.2 pg High 27.0-33.0 [facility] Comment on above: Order Comment: No: D o not add to previous draw Performed By: #### 4 1000, 35258 #### [facility] [address] [place] [address], [place] MCHC (RBC) [Mass/Vol] 32.8 g/dL Normal 32.0-35.0 [facility] Comment on above: Order Comment: No: D o not add to previous draw Performed By: #### 4 1000, 84309 #### [facility] [address] [place] [address], [facility] MCV (RBC) [Entitic vol] 107.5 fL High 82.0-98.0 [facility] Comment on above: Order Comment: No: D o not add to previous draw Performed By: #### 4 1000, 43275 #### [facility] [address] [place] [address], [facility] METAMYELO 3.7 % High 0.0-0.0 [facility] Comment on above: Order Comment: No: D o not add to previous draw Performed By: #### 4 1000, 45500 #### [facility] [address] [facility] [place] [address], [facility] Monocytes (Bld) [#/Vol] 0.5 10*3/uL Normal 0.1-1.0 [facility] Comment on above: Order Comment: No: D o not add to previous draw Performed By: #### 4 1000, 50305 #### [facility] [address] [facility] [place] [address], [facility] MONOS 9.2 % Normal 5.0-12.0 [facility] Comment on above: Order Comment: No: D o not add to previous draw Performed By: #### 4 1000, 15884 #### [facility] [address] [facility] [place] [address], [facility] MYELOS 3.7 % High 0.0-0.0 [facility] Comment on above: Order Comment: No: D o not add to previous draw Performed By: #### 4 1000, 07150 #### [facility] [address] [place] [address], [facility] Neutrophils/100 WBC (Bld) 75.2 % High 40.0-72.0 [facility] Comment on above: Order Comment: No: D o not add to previous draw Performed By: #### 4 1000, 85191 #### [facility] [address] [place] [address], [facility] NRBC SCAN Present Normal [facility] Comment on above: Order Comment: No: D o not add to previous draw Performed By: #### 4 1000, 91243 #### [facility] [address] [place] [address], [facility] Nucleated RBC/100 WBC (Bld) [Ratio] 0 % Normal 0-0 [facility] Comment on above: Order Comment: No: D o not add to previous draw Performed By: #### 4 1000, 05748 #### [facility] [address] [place] [id number], [facility] PLAT CNT 153 10*3/uL Normal 150-400 [facility] Comment on above: Order Comment: No: D o not add to previous draw Performed By: #### 4 1000, 07025 #### [facility] [address] [place] [address], [facility] RBC (Bld) [#/Vol] 3.35 10*6/uL Low 4.20-5.70 [facility] Comment on above: Order Comment: No: D o not add to previous draw Performed By: #### 4 1000, 10516 #### [facility] [address] [place] [id number], [facility] WBC (Bld) [#/Vol] 5.92 10*3/uL Normal 4.00-10.60 [facility] Comment on above: Order Comment: No: D o not add to previous draw Performed By: #### 4 1000, 04194 #### [facility] [address] [place] [id number], [facility] CPKon 06-27-2020 CK [Catalytic activity/Vol] 90 U/L Normal 30-223 [facility] Comment on above: Order Comment: No: D o not add to previous draw Performed By: #### 4 1000, 34576, 19772 #### [address] CTA HEADon 06-27-2020 CTA HEAD [facility] Department of Radiology [address] [place] [address] == Patient Name: CHIKI JUAREZ : 1945 Sex: M Age: Race: White Pt. Location: [id number] Patient Status: I Ordered Date: 06/27/2020 9:05:00 AM Completed Date: 06/27/2020 10:53 AM Requesting Provider: MARIA ELENA LEDESMA Attending Provider: MYA BHAKTA Report Copy To: Signs & Symptoms: Stroke(CVA) History: See Comments Comments: CVA Exam: CTA HEAD == CTA HEAD 06/27/2020 10:53 AM CLINICAL INDICATIONS: [...] achievable Electronically signed: Ashu García. Transcribed by: [email or web address], User Resident: Electronically Signed by: ASHU GARCÍA @ 06/27/2020 01:12 PM Normal [facility] Comment on above: Order Comment: No: D o not add to previous draw CTA NECKon 06-27-2020 CTA NECK [facility] Department of Radiology [address] [place] [id number] == Patient Name: CHIKI JUAREZ : 1945 Sex: M Age: Race: White Pt. Location: [id number] Patient Status: I Ordered Date: 06/27/2020 9:05:00 AM Completed Date: 06/27/2020 10:53 AM Requesting Provider: MARIA ELENA LEDESMA Attending Provider: MYA BHAKTA Report Copy To: Signs & Symptoms: Difficulty Swallowing History: See Comments Comments: Exam: CTA NECK == CTA NECK 06/27/2020 10:53 AM CLINICAL INDICATIONS: [...] viewed on a separate workstation. The [place] Symptomatic Carotid Endarterectomy Trial (NASCET) method for [...] achievable Electronically signed: Ashu García. Transcribed by: [email or web address], User Resident: Electronically Signed by: ASHU GARCÍA @ 06/27/2020 01:08 PM Normal [facility] D DIMER TESTon 06-27-2020 D-DIMER TEST 0.39 mcg/mL FEU Normal 0.27-0.49 [facility] Comment on above: Order Comment: No: D o not add to previous draw Result Comment: D-Di fide values of less than 0.50 ug/ml (FEU) are considered to be a negative predictor of thrombosis. However, the D-Dimer result should be used in conjunction with pretest probability and should not be used alone to diagnose a thrombotic event. Performed By: #### 4 1000, 13469 #### [facility] [address] [place] [address], [facility] FERRITINon 06-27-2020 Ferritin [Mass/Vol] 250 ng/mL Normal 24-336 [facility] Comment on above: Order Comment: No: D o not add to previous draw Performed By: #### 4 1000, , 30953 #### [facility] [address] [place] [address], [facility] HEMOGLOBIN A1Con 06-27-2020 HbA1c (Bld) [Mass fraction] 134 mmol/L Normal [facility] Comment on above: Order Comment: No: D o not add to previous draw Performed By: #### 4 1000, , 91845 #### [facility] [address] [place] [address], [facility] HbA1c (Bld) [Mass fraction] 6.3 % High 4.0-6.0 [facility] Comment on above: Order Comment: No: D o not add to previous draw Performed By: #### 4 1000, , 81167 #### [facility] [address] [place] [address], [facility] LDH BLOODon 06-27-2020 LDH 213 Units/L Normal 140-271 [facility] Comment on above: Order Comment: No: D o not add to previous draw Performed By: #### 4 1000, , 87115 #### [facility] [address] [place] [address], [facility] LIVER BATTERYon 06-27-2020 Albumin [Mass/Vol] 3.5 g/dL Normal 3.5-5.7 [facility] Comment on above: Order Comment: No: D o not add to previous draw Performed By: #### 4 1000, , 61500 #### [facility] [address] [place] [address], [facility] ALKALINE PHOSPH 62 IU/L Normal 34-104 [facility] Comment on above: Order Comment: No: D o not add to previous draw Performed By: #### 4 1000, , [id number] #### [facility] [address] [place] [address], [facility] ALT [Catalytic activity/Vol] 11 U/L Normal 7-52 [facility] Comment on above: Order Comment: No: D o not add to previous draw Performed By: #### 4 1000, , [id number] #### [facility] [address] [place] [address], [place] AST [Catalytic activity/Vol] 10 U/L Low 13-39 [facility] Comment on above: Order Comment: No: D o not add to previous draw Performed By: #### 4 1000, , [id number] #### [facility] [address] [place] [address], [place] Bilirubin [Mass/Vol] 0.5 mg/dL Normal 0.3-1.0 [facility] Comment on above: Order Comment: No: D o not add to previous draw Performed By: #### 4 1000, , [id number] #### [facility] [address] [place] [id number], [place] Bilirubin.direct [Mass/Vol] 0.2 mg/dL Normal 0.0-0.2 [facility] Comment on above: Order Comment: No: D o not add to previous draw Performed By: #### 4 1000, , 89515 #### [facility] [address] [place] [address], [place] Protein [Mass/Vol] 6.0 g/dL Normal 6.0-8.3 [facility] Comment on above: Order Comment: No: D o not add to previous draw Performed By: #### 4 1000, , 99399 #### [facility] [address] [place] [address], [place] MAGNESIUM BLOODon 06-27-2020 Magnesium [Mass/Vol] 2.3 mg/dL Normal 1.9-2.7 [facility] Comment on above: Order Comment: No: D o not add to previous draw Performed By: #### 4 1000, , [id number] #### [facility] [address] [place] [address], [facility] POC GLUCOSE LABon 06-27-2020 Glucose [Mass/Vol] 103 mg/dL High 70-100 [facility] Comment on above: Performed By: #### 4 1000, 90680 #### [facility] [address] [place] [address], [facility] Glucose [Mass/Vol] 100 mg/dL Normal 70-100 [facility] Comment on above: Performed By: #### 4 1000, [id number] #### [facility] [address] [place] [address], [facility] POTASSIUM BLOODon 06-27-2020 Potassium [Moles/Vol] 4.5 mmol/L Normal 3.5-5.1 [facility] Comment on above: Order Comment: No: D o not add to previous draw Performed By: #### 4 1406 #### [facility] [address] [facility] [place] [address], [facility] PROTHROMBIN TIMEon 0 INR Coag (PPP) [Relative time] 1.05 {INR} Normal 0.91-1.16 [facility] Comment on above: Order Comment: No: D o not add to previous draw Result Comment: ACCC P RECOMMENDED INR FOR WARFARIN THERAPY -------- ------- CONDITION INR PROPHYLAXIS OF VENOUS THROMBOSIS 2-3 (HIGH-RISK SURGERY) TREATMENT OF VENOUS THROMBOSIS 2-3 TREATMENT OF PULMONARY EMBOLISM 2-3 PREVENTION OF SYSTEMIC EMBOLISM: 2-3 ACUTE MYOCARDIAL INFARCTION TISSUE HEART VALVES VALVULAR HEART DISEASE ATRIAL FIBRILLATION RECURRENT SYSTEMIC EMBOLISM MECHANICAL HEART VALVE 2.5-3.5 FROM: ORAL ANTICOAGULANTS. MECHANISM OF ACTION, CLINICAL EFFECTIVENESS, AND OPTIMAL THERAPEUTIC RANGE. CHEST 1995;108:231S-246S. Performed By: #### 4 1000, [id number] #### [facility] [address] [facility]. [address] PT Coag (PPP) [Time] 13.7 s Normal 12.3-14.8 [facility] Comment on above: Order Comment: No: D o not add to previous draw Result Comment: ALL RESULTS MUST BE INTERPRETED WITH RESPECT TO BLOOD DRAWING ARTIFACT OR DILUTION ERROR OF ANTICOAGULANT AT THE TIME OF SAMPLING. Performed By: #### 4 1000, 55734 #### [facility] [address] TSH3 WITH REFLEX FT4on 06-27 TSH 3RD GENERATION 0.86 uIU/mL Normal 0.34-5.60 [facility] Comment on above: Performed By: #### 4 1000, 16911, 30628 #### [facility] [address] VITAMIN B12on 06-27-2020 Cobalamin (Vitamin B12) [Mass/Vol] 3006 pg/mL High 180-914 [facility] Comment on above: Result Comment: REFE RENCE RANGES: 180-914 pg/mL Normal 145-179 pg/mL Indeterminate <145 pg/mL Deficient Performed By: #### 4 1000, 24651, 72740 #### [facility] [address] [facility]. [address] PHOSPHORUS BLOODon 0 Phosphate [Mass/Vol] 3.2 mg/dL Normal 2.5-5.0 [facility] Comment on above: Order Comment: No: D o not add to previous draw Performed By: #### 4 1000, 71686 #### [facility] [address] [place] [address], [facility] TROPONIN-Ion 06-26-2020 Troponin I.cardiac [Mass/Vol] 0.01 ng/mL Normal 0.00-0.04 [facility] Comment on above: Order Comment: No: D o not add to previous draw Result Comment: FABBY MILLER RANGES: 0.00 - 0.04 ng/ml NORMAL 0.05 - 0.50 ng/ml INDETERMINATE > 0.50 ng/ml CONSISTENT WITH AN M.I. Performed By: #### 4 1000, 04999 #### [facility] [address] Vital Signs Date Time Vital Sign Value Performing Clinician Facility 03-09-2023 10:50-0400 Blood Pressure Location Oni MCKEON [facility] 03-09-2023 10:50-0400 Diastolic blood pressure 70 mm[Hg] Oni MCKEON [facility] 03-09-2023 10:50-0400 Heart rate 71 /min Oni MCKEON [facility] 03-09-2023 10:50-0400 Respiratory rate 16 /min Oni MCKEON [facility] 03-09-2023 10:50-0400 Systolic blood pressure 109 mm[Hg] Oni MCKEON [facility] 01-09-2022 13:00-0400 Body height 172.7 cm Hosea Herrera MD Work Phone: [facility] 01-09-2022 13:00-0400 Body temperature 97.81 [degF] Hosea Herrera MD Work Phone: [facility] 01-09-2022 13:00-0400 Body weight 100.61 kg Hosea Herrera MD Work Phone: [facility] 01-09-2022 13:00-0400 Diastolic blood pressure 68 mm[Hg] Hosea Herrera MD Work Phone: [facility] 01-09-2022 13:00-0400 Heart rate 93 /min Hosea Herrera MD Work Phone: [facility] 01-09-2022 13:00-0400 Respiratory rate 18 /min Hosea Herrera MD Work Phone: [facility] 01-09-2022 13:00-0400 SaO2% (BldA) [Mass fraction] 93 % Hosea Herrera MD Work Phone: [facility] 01-09-2022 13:00-0400 Systolic blood pressure 95 mm[Hg] Hosea Herrera MD Work Phone: [facility] 11-19-2021 10:19-0400 Blood Pressure Location Romeo Vidal Jr. [facility] 11-19-2021 10:19-0400 Diastolic blood pressure 60 mm[Hg] Romeo Vidal Jr. [facility] 11-19-2021 10:19-0400 Heart rate 80 /min Romeo Vidal Jr. [facility] 11-19-2021 10:19-0400 Respiratory rate 16 /min Romeo Vidal Jr. [facility] 11-19-2021 10:19-0400 Systolic blood pressure 113 mm[Hg] Romeo Vidal Jr. [facility] Encounters Encounter Date Encounter Type Care Provider Facility Start: 03-14-2024 ambulatory Oni Victor ty:NILDA Kathleen Start: 01-22-2024 ambulatory Marlys Olivia Facility: [facility] Start: 10-19-2023 ambulatory Pito Patterson Facility :[facility] [place] Start: 09-09-2023 End: 09-09-2023 ambulatory [facility] Start: 08-24-2023 End: 08-25-2023 ambulatory Pito Patterson Facility:[facility] [place] Start: 08-03-2023 End: 08-04-2023 ambulatory Pito Patterson Facility:[facility] [place] Start: 07-30-2023 End: 07-30-2023 ambulatory PITO PATTERSON Facility:[facility] Start: 07-28-2023 End: 07-28-2023 ambulatory [facility] Start: 07-23-2023 End: 07-23-2023 ambulatory PITO PATTERSON Facility:[facility] Start: 07-16-2023 End: 07-16-2023 ambulatory BERT ACEVEDO Not Available Start: 05-28-2023 End: 05-29-2023 ambulatory Pito Patterson Facility:[facility] [place] Start: 05-21-2023 End: 05-21-2023 ambulatory [facility] Start: 05-11-2023 End: 05-12-2023 ambulatory Pito Patterson Facility:[facility] [place] Start: 03-31-2023 End: 03-31-2023 ambulatory [facility] Start: 03-31-2023 End: 04-01-2023 ambulatory Oni MCKEON Facility:[facility] Start: 03-31-2023 End: 03-31-2023 Patient encounter procedure Oni MCKEON [facility] Start: 03-09-2023 End: 03-10-2023 ambulatory Oni MCKEON Facility:[facility] Start: 03-09-2023 End: 03-10-2023 ambulatory Oni MCKEON Facility:[facility] Start: 03-09-2023 End: 03-09-2023 Patient encounter procedure Oni MCKEON [facility] [place] Start: 01-26-2023 End: 01-27-2023 ambulatory Marlys L Corwin Facility:[facility] Start: 01-26-2023 End: 01-26-2023 Lab Drop off Marlys L Corwin [facility] Start: 01-22-2023 End: 01-23-2023 ambulatory Marlys L Corwin Facility:[facility] Start: 01-22-2023 End: 01-23-2023 ambulatory [facility]s L Corwin [facility] Start: 01-16-2023 End: 01-17-2023 ambulatory Pito Patterson Facility:[facility] [place] Start: 01-09-2023 ambulatory Oni Victor ty:[facility] Start: 11-28-2022 End: 11-28-2022 ambulatory [facility] Start: 10-28-2022 End: 10-29-2022 ambulatory Pito Patterson Facility:[facility] [place] Start: 10-24-2022 ambulatory [facility] Start: 10-14-2022 End: 10-14-2022 ambulatory [facility] Start: 08-05-2022 Telephone encounter Lynsey Diaz RN Hematology/Oncology Comment on above: Results Start: 07-24-2022 Telephone encounter Tyler cadena MD Work Phone: [facility] Comment on above: Appointment Start: 04-22-2022 End: [...] procedure Romeo Vidal Jr. [facility] Start: 09-24-2021 End: 09-25-[address] WILL SHERWOOD Facility:[facility] Start: 09-10-2021 End: 09-11-[address] WILL SHERWOOD Facility:[facility] Start: 09-09-2021 End: 09-10-[address] WILL SHERWOOD Facility:[facility] Start: 09-06-2021 End: 10-10-[address] WILL SHERWOOD Facility:[facility] Start: 09-05-2021 End: 09-06-[address] DOCTOR SANCHES Facility:[facility] Start: 07-30-2021 End: 07-31-[address] DOCTOR SANCHES Facility:[facility] Start: 07-30-2021 End: 08-16-[address] DOCTOR SANCHES Facility:[facility] Start: 07-24-2021 End: 07-25-2021 ambulatory CRISTÓBAL NGO Facility:[facility] Start: 06-25-2021 End: 06-26-2021 ambulatory PITO REEDER YESENIA Facility:[facility] Start: 06-07-2021 End: 06-08-[address] WILL SHERWOOD Facility:[facility] Start: 05-16-2021 End: 05-16-[address] TAMIKO PAREDES Facility:[facility] Start: 05-15-2021 End: 05-16-[address] WILL SHERWOOD Facility:[facility] Start: 05-14-2021 End: 05-15-[address] WILL SHERWOOD Facility:[facility] Start: 04-29-2021 End: 04-30-[address] WILL SHERWOOD Facility:[facility] Start: 06-26-2020 End: 06-30-2020 Evaluation and management of inpatient CRESCENCIO FLETCHER Facility:[facility] Procedures Date Procedure Procedure Detail Performing Clinician Start: 01-09-2022 Adult depression scr eening assessment Hosea Herrera MD Work Phone: Start: 01-07-[address] WILL LINDA Comment on above: Performed By: #### P SAD ####[facility] [id number] [place] [address]DrJeffery Nichols Start: 06-28-2020 INSERT PACE. DUAL CH AM IN CHEST SUBCU/FASCIA, OPEN CONNOR CARRERA Start: 06-28-2020 INSERTION OF PACEMAK ER LEAD INTO R VENTRICLE, PERC APPROACH CONNOR CARRERA Start: 06-28-2020 INSERTION OF PACEMAK ER LEAD INTO RIGHT ATRIUM, PERC APPROACH CONNOR CARRERA Start: 06-27-2020 INTRODUCTION OF OTHE R GAS INTO RESP TRACT, VIA OPENING MYA MATTHEWSUR Start: 08-17-2019 Cardiac pacemaker, stacy booker (physical object) Oni MCKEON Start: 03-10-2019 Transrectal biopsy o f prostate using ultrasound guidance Romeo Vidal Jr. Start: 03-12-2010 Transurethral cystoscopy Romeo Vidal Jr. Start: 08-17-2006 Excision of sentinel lymph node Romeo Young Manriquez Plan of Treatment Date Care Activity Detail Author Start: 07-18-2025 DIABETES SCREEN DIABETES SCREEN [facility] Start: 01-09-2025 DIABETES SCREEN DIABETES SCREEN [facility] Start: 01-09-2023 Adult depression screening assessment DEPRESSION SCREENING [facility] Start: 07-18-2022 End: 09-17-2022 CBC panel - Blood by Automated count CBC Lab Routine MGUS (monoclonal gammopathy of unknown significance) Expected: 07/18/2022 (Approximate), Expires: 09/17/2022 [facility] Work Phone: Comment on above: Expected: 07/18/2022 (Approximate), Expires: 09/17/2022 Start: 07-18-2022 End: 09-17-2022 Comprehensive metabolic 2000 panel - Serum or Plasma COMP METABOLIC PANEL Lab Routine MGUS (monoclonal gammopathy of unknown significance) Expected: 07/18/2022 (Approximate), Expires: 09/17/2022 [facility] Work Phone: Comment on above: Expected: 07/18/2022 (Approximate), Expires: 09/17/2022 Start: 07-18-2022 End: 09-17-2022 MONOCLONAL PROTEIN, SERUM (BLOOD) MONOCLONAL PROTEIN, SERUM (BLOOD) Lab Routine MGUS (monoclonal gammopathy of unknown significance) Expected: 07/18/2022 (Approximate), Expires: 09/17/2022 [facility] Work Phone: Comment on above: Expected: 07/18/2022 (Approximate), Expires: 09/17/2022 Start: 07-18-2022 End: 09-17-2022 PROTEIN ELECTROPHORESIS SERUM W/INTERP PROTEIN ELECTROPHORESIS SERUM W/INTERP Lab Routine MGUS (monoclonal gammopathy of unknown significance) Expected: 07/18/2022 (Approximate), Expires: 09/17/2022 [facility] Work Phone: Comment on above: Expected: 07/18/2022 (Approximate), Expires: 09/17/2022 Start: 05-06-2022 COVID-19 VACCINE (5 - Booster for Pfizer series) COVID-19 VACCINE (5 - Booster for Pfizer series) [facility] Start: 04-17-2022 Influenza vaccination INFLUENZA (#1) [facility] Start: 09-25-2021 COVID-19 VACCINE (4 - Booster for Pfizer series) COVID-19 VACCINE (4 - Booster for Pfizer series) [facility] Start: 08-17-2021 ADVANCE DIRECTIVE DISCUSSION ADVANCE DIRECTIVE DISCUSSION [facility] Start: 08-17-2021 DEPRESSION ASSESSMENT DEPRESSION ASS ESSMENT [facility] Start: 1997 SHINGRIX VACCINE (1 of 2) [place] GRIX VACCINE (1 of 2) [facility] Start: 1992 COLOGUARD (FIT-DNA) COLOGUARD (FIT-D NA) [facility] Start: 1992 Colonoscopy COLONOSCOPY [facility] Start: 1992 COLORECTAL CANCER SCREENING COLORECTAL CANCER SCREENING [facility] Start: [address] COLONOGRAPHY [facility] Start: 1992 FECAL OCCULT BLOOD FECAL OCCULT BLOO D [facility] Start: [address] [facility] Start: 1982 LIPID SCREEN LIPID SCREEN [facility] Start: 1966 SHINGRIX VACCINE (1 of 2) [place] GRIX VACCINE (1 of 2) [facility] Start: 1966 Urine microalbumin profile DTAP,TDAP,TD (1 - Tdap) [facility] Start: 1965 HEPATITIS C SCREENING HEPATITIS C SC REENING [facility] Start: 1947 ABDOMINAL AORTIC ANE URYSM SCREENING ABDOMINAL AORTIC ANEURYSM SCREENING [facility] CBC W Auto Different ial panel - Blood CBC + DIFF Lab Routine B12 deficiency Diffuse large B-cell lymphoma, unspecified body region (HCC) 01/09/2022 1:40 PM EDT [facility] Work Phone: [facility] Immunizations Immunization Date Immunization Notes Care Provider Eric garcia 03-11-2022 SARS-CoV-2 mRNA (zxalqnaskte-qhxp-kofnhs e) vaccine Marlys Olivia [facility] 06-25-2021 SARS-CoV-2 (COVID-19 ) mRNA BNT-162b2 vax Marlys Corwin [facility] 05-24-2021 influenza virus vacc ine, unspecified formulation Marlys Corwin [facility] 11-13-2020 COVID-19 vaccine, ag e 12+ yr (PFIZER-BIONTECH - [facility]) Hosea Herrera MD Work Phone: [facility] 10-22-2020 COVID-19 vaccine, ag e 12+ yr (PFIZER-BIONTECH - PURPLE TOP) Hosea Herrera MD Work Phone: [facility] 07-24-2020 zoster vaccine recombinant Marlys Corwin [facility] 05-09-2020 influenza virus vacc ine, unspecified formulation Marlys Corwin [facility] 05-09-2020 tetanus toxoid, redu juvencio diphtheria toxoid, and acellular pertussis vaccine, adsorbed Marlys Corwin [facility] 05-09-2020 zoster vaccine recombinant Marlys Corwin [facility] 04-16-2019 influenza virus vacc ine, unspecified formulation Marlys Corwin [facility] 05-25-2018 influenza virus vacc ine, unspecified formulation Marlys Corwin [facility] 05-25-2018 influenza, injectabl e, quadrivalent, preservative free Hosea Herrera MD Work Phone: [facility] 05-25-2018 pneumococcal polysaccharide vaccine, 23 valent Hosea Herrera MD Work Phone: [facility] 04-26-2018 influenza virus vacc ine, unspecified formulation Marlys Corwin [facility] 04-26-2018 influenza, high dose seasonal, preservative-free Hosea Herrera MD Work Phone: [facility] 04-26-2018 pneumococcal polysaccharide vaccine, 23 valdmitriy Herrera MD Work Phone: [facility] 08-04-2017 influenza virus vacc ine, unspecified formulation Marlys Olivia [facility] 08-04-2017 influenza, high dose seasonal, preservative-free Hosea Herrera MD Work Phone: [facility] 08-04-2017 pneumococcal conjuga te vaccine, 13 valent Hosea Herrera MD Work Phone: [facility] influenza vaccine qs 240 mcg, Patients 65 years and older,, PF, (FLUZONE HIGHDOSE QUAD 20-21 PF) 240 mcg/0.7 mL injection Hosea Herrera MD Work Phone: [facility] Comment on above: Fluzone High-Dose Qu ad 2020-21 (PF) 240 mcg/0.7 mL IM syringe PHARMACY ADMINISTERED influenza vaccine qs 240 mcg, Patients 65 years and older,, PF, (FLUZONE HIGHDOSE QUAD 20-21 PF) 240 mcg/0.7 mL injection Tyler Draper MD Work Phone: [facility] Comment on above: Fluzone High-Dose Qu ad 2020-21 (PF) 240 mcg/0.7 mL IM syringe PHARMACY ADMINISTERED Payers Date Payer Category Payer Medicare [id number] 2022 Private Health Insurance [id number] 2014 Medicare AETNA MEDICARE A ETNA MEDICARE PPO [id number] 2014-Present [phone] [address] [place] [address] O [id number] 2014 Medicare AETNA MEDICARE A ETNA MEDICARE PPO [id number] 2014-Present [phone] [address] [place] [address] PPO [id number] 1959 Medicare [id number] 1959 Private Health Insurance [facility] [id number] Self-pay 1947 Unknown [id number] 2.16.840.1.281693.3.579.2.6 47 1947 Unknown [id number] 2.16.840.1.909339.3.579.2.5 93 1947 Unknown [id number] 2.16.840.1.616343.3.579.2.5 93 1947 Unknown [id number] 2.16.840.1.049877.3.579.2.5 93 1947 Unknown [id number] 2.16.840.1.880057.3.579.2.5 93 1947 Unknown [id number] 2.16.840.1.719040.3.579.2.5 93 1947 Unknown [id number] 2.16.840.1.202055.3.579.2.5 93 1947 Unknown [id number] 2.16.840.1.817846.3.579.2.5 93 1947 Unknown [id number] 2.16.840.1.030605.3.579.2.5 93 1947 Unknown [id number] 2.16.840.1.744323.3.579.2.5 93 1947 Unknown [id number] 2.16.840.1.930527.3.579.2.5 93 1947 Unknown [id number] 2.16.840.1.080042.3.579.2.5 93 1947 Unknown [id number] 2.16.840.1.524330.3.579.2.5 93 1947 Unknown [id number] 2.16.840.1.984101.3.579.2.5 93 1947 Unknown [id number] 2.16.840.1.882316.3.579.2.5 93 1947 Unknown [id number] 2.16.840.1.002146.3.579.2.5 93 1947 Unknown [id number] 2.16.840.1.841981.3.579.2.5 93 1947 Unknown [id number] 2.16.840.1.865924.3.579.2.5 93 1947 Unknown [id number] 2.16.840.1.348619.3.579.2.5 93 1947 Unknown [id number] 2.16.840.1.591121.3.579.2.5 93 1947 Unknown [id number] 2.16.840.1.530086.3.579.2.5 93 1947 Unknown [id number] 2.16.840.1.914583.3.579.2.1 259 1947 Unknown [id number] 2.16.840.1.352578.3.579.2.7 27 1947 Unknown [id number] 2.16.840.1.191165.3.579.2.7 27 1947 Unknown [id number] 2.16.840.1.745601.3.579.2.7 27 1947 Unknown [id number] 2.16.840.1.308583.3.579.2.7 27 1947 Unknown [id number] 2.16.840.1.667342.3.579.2.7 27 1947 Unknown [id number] 2.16.840.1.156285.3.579.2.7 27 1947 Unknown [id number] 2.16.840.1.775586.3.579.2.7 27 1947 Unknown [id number] 2.16.840.1.563260.3.579.2.7 27 1947 Unknown [id number] 2.16.840.1.788525.3.579.2.7 1947 Unknown [id number] 2.16.840.1.067719.3.579.2.7 27 1947 Unknown [id number] 2.16.840.1.106107.3.579.2.7 1947 Unknown [id number] 2.16.840.1.921842.3.579.2.7 27 1947 Unknown [id number] 2.16.840.1.179491.3.579.2.7 1947 Unknown [id number] 2.16.840.1.037598.3.579.2.7 1947 Unknown [id number] 2.16.840.1.980385.3.579.2.7 1947 Unknown [id number] 2.16.840.1.464373.3.579.2.7 1947 Unknown [id number] 2.16.840.1.918424.3.579.2.7 1947 Unknown [id number] 2.16.840.1.935205.3.579.2.7 Unknown [id number] 2.16.840.1.178229.3.579.2.5 93 Social History Date Type Detail Facility Start: 11-19-2021 End: 01-22-2023 Tobacco smoking status Ex-smoker (finding) [facility] Sex Assigned At Male [facility] End: 09-06-1988 History of tobacco use Current smoker [facility] Start: 09-06-2012 End: 07-31-2022 Cigarettes smoked current (pack per day) - Reported 1 [facility] Start: 09-06-2012 End: 07-31-2022 Tobacco use and exposure Smokeless tobacco non-user [facility] Start: 01-09-2022 End: 07-31-2022 Alcohol intake Current drinker of alcohol (finding) [facility] Start: 04-05-2019 History SDOH Alcohol Comment rare [facility] Start: 1945 Sex Assigned At Not on file [facility] Start: 12-30-2021 End: 01-09-2022 Exposure to SARS-CoV-2 (event) Not sure [facility] End: 09-06-1988 History of tobacco use Cigarette Smoker [facility] History of tobacco use Passive smoker [facility] Functional Status Date Assessment Result Facility 03-09-2023 Functional Status N/A [facility] Clinical Notes 11-19-2021 to 09-09-2023 Telephone Encounter - Lynsey Diaz RN - 08/05/2022 1:46 PM ESTTelephone Encounter - Lynsey Diaz RN - 08/05/2022 1:45 PM ESTTelephone Encounter - Kavitha Trevino - 07/25/2022 11:25 AM EST Note Date & Type Note Facility 09-09-2023 Note [place] [facility] Subjective Chiki Juarez is a 78 y.o. year old male patient being seen for labs and echo done last month. Patient Active Problem List Diagnosis Complete AV [...] (CMS/HCC) 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CMS/HCC) Wheezing Decreased ambulation status MGUS (monoclonal gammopathy of unknown significance) Family History Problem Relation Name Age of Onset Stroke Father Social History Tobacco Use Smoking status: Former Types: Cigarettes Substance Use Topics Alcohol use: Never GILDA Chiki is seen in follow-up. He is a 78-year-old man with prior history of COPD and is currently followed at [facility]. He takes multiple inhalers. In June [...] breath. He recently was seen at [facility] pulmonary and was recommended to follow-up with cardiology as a potential etiology of his shortness of breath and to possibly increase the diuretic regimen. After last visit of 08/05/2023 I increased his Lasix to 40 mg twice daily. I also checked his BNP which was within normal limits and an echocardiogram that showed mild elevation of right-sided pressures with an RVSP of 39 mmHg. A follow-up BMP showed that the kidney function is right around baseline. Today he reports that increasing the Lasix helped with lower extremity edema but his shortness of breath is still the same and has not responded. He denies chest pain. He is in NYHA class III-IV symptoms. Review of Systems Cardiovascular: Positive for dyspnea on exertion and leg swelling. Respiratory: Positive for cough and shortness of breath. Hematologic/Lymphatic: Bruises/bleeds easily. Neurological: Positive for headaches and light-headedness (with coughing spells). All other systems reviewed and are negative. Objective Visit Vitals BP 104/66 (BP Location: Left arm, Patient Position: Sitting) Pulse 81 Ht 1.626 m (5' 4 ) Wt 98.4 kg (217 lb) SpO2 93% BMI 37.25 kg/m??? Smoking Status Former BSA [...] Pitting Edema present. Skin: General: Skin is w (more content not included)... [facility] 07-30-2023 Note HNO ID: [id number] Author: Tyler Draper MD Service: ? Author [...] to light. Extraocul (more content not included)... [facility] 07-28-2023 Note [place] [facility] - [facility] Subjective Chiki Juarez is a 78 y.o. year old male patient being seen per Dr. Mayra Berg of pulmonary medicine at [facility] to discuss possible increase in diuretic. [...] Cigarettes Substance Use Topics Alcohol use: Never HPI Chiki is seen in follow-up. He is a 78-year-old man with prior history of COPD and is currently followed at [facility]. He takes multiple inhalers. In June [...] breath. He recently was seen at [facility] pulmonary and was recommended to follow-up [...] is alert and (more content not included)... [facility] 05-21-2023 Note Cardiovascular Medic [facility] SUBJECTIVE Chief Complaint Patient presents [...] 46. Legacy Enc (more content not included)... [facility] 05-21-2023 Note Patient here for 6 m o follow up NSVT, chronic diastolic heart failure, pulmonary hypertension, and complete AV block. Device was routinely interrogated in Mar 2023. Denies chest pain and palpitations. Sees Dr. Berg at [facility] for pulmonology. Doing well from cardiac standpoint. Review of Systems Cardiovascular: Positive for dyspnea on exertion and leg swelling (resolves by morning). Respiratory: Positive for shortness of breath. Hematologic/Lymphatic: Bruises/bleeds easily. Neurological: Positive for headaches and light-headedness (positional). All other systems reviewed and are negative. [facility] 03-31-2023 Note [id number] [facility] 03-31-2023 Hospital Discharge instructions Patient Education [...] With:Oni MCKEON Address: [facility] [address] [place] [address]- Business (1) When:03/31/2024 11:58:05 Comments:With a renal ultrasound [facility] 03-31-2023 Note Custom Cystoscopy ? [...] you have a fever over 100 degrees. [facility] 03-09-2023 Hospital Discharge instructions Patient Education [...] urethra. Follow these instructions at home: Take rmab-gat-gcaihnd and prescription medicines only as told by [...] provider. Document Revised: 02/19/2022 Document Reviewed: 02/19/2022 Playroom Patient Education 2022 [employer]. Follow Up Care 02/13/2023 11:39:29 With:MIKE VENTURA, Oni Sewell, URL Address: [facility] [address], [place] [address]- [phone] When: Unknown Comments:schedule cysto and renal US1 yr w/ PSA [facility] 11-28-2022 Note Cardiovascular Medic [facility] SUBJECTIVE Chief Complaint Patient presents with Hyperlipidemia Shortness of Breath Chiki Juarez is a 77 y.o. male here for follow-up on his pacemaker which was placed for complete heart block. HPI Last HPI per Dr. Easton: Chiki is seen in follow-up. He is a 77-year-old man with prior history of COPD and is currently followed at [facility]. He takes multiple inhalers. In June 2020 he was admitted with COVID-19 infection and had a cerebrovascular accident with resultant difficulty speaking. At that time he was also found to have complete heart block and underwent dual-chamber pacemaker implantation. He does have lower extremity edema and worsening shortness of breath. He recently was seen at [facility] pulmonary and was recommended to follow-up [...] present. Left low (more content not included)... [facility] 11-28-2022 Note Patient here for 6 m o follow up hyperlipidemia, CANO, and complete AV block. Denies chest pain. SOB is no more than usual. Had labs in Jul 2022. Review of Systems Cardiovascular: Positive for dyspnea on exertion. Respiratory: Positive for shortness of breath. Hematologic/Lymphatic: Bruises/bleeds easily. Neurological: Positive for headaches and light-headedness. All other systems reviewed and are negative. [facility] 08-05-2022 Miscellaneous Notes Informed pt of Dr Draper's message. Pt verbalized understanding and denies further needs at this time. Lynsey Diaz RN ----- Message from Tyler Draper MD sent at 08/04/2022 12:29 PM EST ----- Please inform the patient that his PSA is stable at 0.26. We will continue as planned. Thanks, BRM documented in this encounter [facility] 07-25-2022 Miscellaneous Notes Spoke to [...] awhile please advise documented in this encounter [facility] 01-16-2022 History of Present illness [...] random TRUS prostate biopsies with prostate adenocarcinoma, [place] 4+3, 3 cores involved out of 9, [...] and pneumonia, following pulmonology team at [facility]. He has a family history significant [...] with R-CHOP x 4 and radiation in 2008 with PET CR ?Bronchiectasis, follows pulmonology at [facility] Possible cystic fibrosis, follows pulmonology at [facility], genetic testing pending Previous surgeries include a pacemaker in 2019. No family history of hematologic or oncologic issues but significant for cystic fibrosis in brother and nephew; granddaughter is a carrier of cystic fibrosis. Patient lives in [place], [place] with his , Nicolasa. He has 4 children. He has a 92-gvlm-bsuj smoking history and quit in 1986. 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 MEDICATIONS AND ALLERGIES: Reviewed PHYSICAL EXAM NA LABORATORY, IMAGING AND PATHOLOGY December 2021 M spike 0.08 g/dL, IgG lambda, ratio 1.6 Bone Imagin05-15-21 CT scans with lytic lesions in the ribs unchanged since 04-07 bone survey negative Bone Marrow Biopsy: [...] Thus, a bone marrow biopsy would not business change manager and it is okay to hold off [...] CC: Will Sherwood documented in this encounter [facility] 01-09-2022 History of Present illness [...] random TRUS prostate biopsies with prostate adenocarcinoma, [place] 4+3, 3 cores involved out of 9, [...] and pneumonia, following pulmonology team at [facility]. He has a family history significant [...] lambda lanes. Hemoglobin 11.3 g/dL, stable since 2019. Creatinine 1.3, stable. Calcium 8.7 and albumin [...] a history of Hypothyroidism Prostate Cancer, localized, [place] 7, treated with EBRT (Dr. Sousa) in 2018 Chronic obstructive lung disease, on home oxygen Cerebrovascular accident, 2020, residual dysarthria COVID-19 in 2020, 2 episodes, on home oxygen Lymphoma, large B cell treated with R-CHOP x 4 and radiation in 2007 with PET CR ?Bronchiectasis, follows pulmonology at [facility] Possible cystic fibrosis, follows pulmonology at [facility], genetic testing pending Previous surgeries include a pacemaker in 2020. No family history of hematologic or oncologic issues but significant for cystic fibrosis in brother and nephew; granddaughter is a carrier of cystic fibrosis. Patient lives in [place], [place] with his , Nicolasa. He has 4 children. He has a 08-gqlj-tquz smoking history and quit in 1986. He [...] ribs unchanged since 2019 04-07 bone survey report pending Bone Marrow Biopsy: NA ASSESSMENT AND RECOMMENDATIONS 76 male with lytic lesions, macrocytic anemia and MGUS M spike from August and September 2021 measures 0.1 g/dL that is stable. His macrocytic anemia dates back to at least 2015 and is likely as a result of [...] Thus, a bone marrow biopsy would not business change manager and it is okay to hold off for now. PSA stable at 0.30. He will follow up with Dr. Sousa for his history of prostate cancer. Hosea Herrera MD I spent a total of 20 minutes on the date of the service which included preparing to see the patient, gnzi-ys-kcuy patient care, completing clinical documentation, obtaining and/or reviewing separately obtained history, performing a medically appropriate examination, counseling and educating the patient/family/caregiver, ordering medications, tests, or procedures, independently interpreting results (not separately reported) and communicating results to the patient/family/caregiver. CC: Will Sherwood documented in this encounter [facility] 11-19-2021 Hospital Discharge instructions Patient [...] who: Are older than age 65. Are -Filipino. Are obese. Have a family history of [...] cells. Follow these instructions at home: Take rscj-zgw-qnzdnap and prescription medicines only as told by [...] 08/03/2006 Document Revised: 07/16/2018 Document Reviewed: 04/13/2017 Playroom Patient Education 2020 [employer]. Follow Up Care 10/30/2020 10:17:46 With:Romeo Vidal Jr., MD, URO Address: [facility] [address] [place] [address]- [phone] When: Unknown [facility] Evaluation + Plan note Future Appointments Appointment Date:11/25/2022 10:15:00 AM Scheduled Provider:Romeo Vidal Jr., MD Location:[facility] Appointment Type:URO Office Visit [facility] Evaluation + Plan note Future Appointments Appointment Date:01/22/2024 11:00:00 AM Scheduled Provider: [facility] Type:FM Medicare Wellness Subsequent Diagnostic Tests PendingT3 Free 01/26/23 [facility] Evaluation + Plan note Future Appointments Appointment Date:03/24/2023 10:00:00 AM Scheduled Provider: Location:[facility] Surgical Services Appointment Type:Urology CALL PAT FT Appointment Date:03/31/2023 11:15:00 AM Scheduled Provider: Location:[facility] Services Appointment Type:Urology FT Appointment Date:01/22/2024 11:00:00 AM Scheduled Provider: [facility] Appointment Type:FM Medicare Wellness Subsequent Appointment Date:03/14/2024 11:15:00 AM Scheduled Provider:Oni [facility]KEON MD [facility] Type:[facility]O Office Visit Diagnostic Tests PendingPSA Total 03/09/23 [facility] Evaluation + Plan note Future Appointments Appointment Date:01/22/2024 11:00:00 AM Scheduled Provider: Location:[facility] [place] Appointment Type:FM Medicare Wellness Subsequent Appointment Date:03/14/2024 11:15:00 AM Scheduled Provider:Oni MCKEON MD [facility] Appoint[facility] Type:URO Office Visit [facility] Evaluation note Diagnosis MGUS (monoclonal gammopathy of unknown significance)- Primary Monoclonal paraproteinemia [facility] B12 deficiency- Primary Other B-complex deficiencies Diffuse large B-cell lymphoma, unspecified body region (HCC) [facility] Diagnosis MGUS (monoclonal gammopathy of unknown significance)- Primary Monoclonal paraproteinemia Macrocytic anemia Unspecified deficiency anemia documented in this encounter [facility] course Narrative No data available for this section [facility] [place] [facility] Discharge instructions No data available for this section [facility] No data available for this section [facility] Summary Purpose Family History No Family History Records FoundNo Family History Records FoundNo Family History Records FoundNo Family History Records FoundNo Family History Records FoundNo Family History Records Found Advance Directives No Advanced Directives Records FoundNo Advanced Directives Records FoundNo Advanced Directives Records FoundNo Advanced Directives Records FoundNo Advanced Directives Records FoundNo Advanced Directives Records Found Hospital Course Note MR#: [id number] [facility] Pt. Name: Chiki Juarez Admitted: 06/26/2020 Discharged: [...] asthma, lymphoma, and hypothyroidism, who transferred to [facility] for evaluation of poss (more content not included)... Additional Source Comments (unrecognized sect ion and content) No Status Records FoundNo Status Records FoundNo Status Records FoundNo Status Records FoundNo Status Records FoundNo Status Records Found INFORMATION SOURCE (unrecogn ized section and content) DATE CREATED AUTHOR 07/16/2020 [facility] DATE CREATED AUTHOR AUTHOR'S ORGANIZ ATION 04/26/2022 [facility] [facility] DATE CREATED AUTHOR AUTHOR'S ORGANIZ ATION 07/19/2023 [facility] DATE CREATED AUTHOR AUTHOR'S ORGANIZ ATION 08/01/2023 [facility] DATE CREATED AUTHOR AUTHOR'S ORGANIZ ATION 08/25/2023 [facility] DATE CREATED AUTHOR AUTHOR'S ORGANIZ ATION 09/10/2023 [facility] Source Comments (unrecognize d section and content) In the event this informatio n is protected by the Federal Confidentiality of Alcohol and Drug Abuse Patient Records regulations: The Federal rules restrict any use of the information to criminally investigate or prosecute any alcohol or drug abuse patient.[facility] the event this information is protected by the Federal Confidentiality of Alcohol and Drug Abuse Patient Records regulations: The Federal rules restrict any use of the information to criminally investigate or prosecute any alcohol or drug abuse patient.[facility] the event this information is protected by the Federal Confidentiality of Alcohol and Drug Abuse Patient Records regulations: The Federal rules restrict any use of the information to criminally investigate or prosecute any alcohol or drug abuse patient.[facility] the event this information is protected by the Federal Confidentiality of Alcohol and Drug Abuse Patient Records regulations: The Federal rules restrict any use of the information to criminally investigate or prosecute any alcohol or drug abuse patient.[facility] the event this information is protected by the Federal Confidentiality of Alcohol and Drug Abuse Patient Records regulations: The Federal rules restrict any use of the information to criminally investigate or prosecute any alcohol or drug abuse patient.[facility] Reason for Visit (unrecogniz ed section and content) Reason Comments Prostate Cancer Reason Comments Lab Orders Reason Comments Results Reason Comments Appointment Care Teams (unrecognized sec tion and content) Decorator Mannequin Relationship Specialty Start Date End Date Will Sherwood MD [address] [place] [address] PCP - General 08/01/05 Decorator Mannequin Relationship Specialty Start Date End Date Will Sherwood MD [address] [place] [address] PCP - General 08/01/05 Decorator Mannequin Relationship Specialty Start Date End Date Will Sherwood MD [address] [place] [address] PCP - General 08/01/05 Decorator Mannequin Relationship Specialty Start Date End Date Will Sherwood MD [address] [place] [address] PCP - General 08/01/05 FOR RECORDS PERTAINING [...] BE BASED ON THE PRIMARY CLINICAL RECORDS. [facility]. provides no warranty or guarantee of the accuracy or completeness of information in this document.
[2023-09-14 13:46] LABS: Hematocrit 37.8 % (42.0-54.0); Hemoglobin 11.8 g/dL (14.0-18.0); Mean Corpuscular HGB Conc 31.2 g/dL (29.9-35.2); Mean Corpuscular Hemoglobin 33.4 pg (25.9-34.0); Mean Corpuscular Volume 107.1 fL (80.0-94.0); Mean Platelet Volume 10.7 fL (9.5-13.5); Platelet Count 148 10^3/uL (150-450); Red Blood Count 3.53 10^6/uL (4.70-6.10); Red Cell Distribution Width 15.6 % (11.0-15.0); White Blood Count 5.3 10^3/uL (4.0-11.0)
[2023-09-14 14:32] LABS: Anion Gap 14.4; Calcium 8.4 mg/dL (8.5-10.1); Carbon Dioxide 27.5 mmol/L (21.0-32.0); Chloride 104 mmol/L (98-107); Estimated GFR (African America 49 (>=60); Estimated GFR (Non-African Ame 40 (>=60); Glucose 111 mg/dL (74-106); Potassium 3.9 mmol/L (3.5-5.1); Sodium 142 mmol/L (136-145)
[2023-09-14 14:46] LABS: Band Neutrophils Absolute 0.3 10^3/uL (0.0-0.3); Lymphocytes Absolute Manual 2.27 10^3/uL (1.20-3.80); Monocytes Absolute Manual 0.79 10^3/uL (0.30-0.80)
== END 2023-09-14 13:08 | disposition home or self-care (01) ==
LOC: LAB 13:08
PROVIDERS: PCP Family Medicine; Visit Provider Internal Medicine Interventional Cardiology
DX: R06.09 Other forms of dyspnea (principal); I27.20 Pulmonary hypertension, unspecified
CPT/HCPCS: 36415; 80048; 85007; 85027

== ENCOUNTER 2024-03-03 08:56 | Outpatient (OUT) | payer MEDICARE, SELFPAY ==
--- NOTE | 2024-03-03 08:59 | US_ITS ---
The [address] [address] Patient Name: CHIKI FOLEY MRN: [id number] date: 1945 Sex: M Assigned Patient Location: US Current Patient Location: US Accession/Order Number: [id number] Exam Date: 03/03/2024 09:00 Report Date: 03/03/2024 11:15 At the request of: NICOLASA MCKEON Procedure: US renal BI EXAMINATION: US renal BI HISTORY: Microscopic Hematuria R31.29 COMPARISON: Ultrasound renal bilateral 03/12/2023 TECHNIQUE: Ultrasound examination was performed of the kidneys and urinary bladder. FINDINGS: RIGHT KIDNEY: No evidence of pelvocaliectasis, mass, or calculi. Slight cortical thinning. Normal renal cortical parenchymal echogenicity. Color Doppler demonstrates blood flow within the kidney. Kidney: 8.2 x 5.9 x 6.4 cm LEFT KIDNEY: No evidence of pelvocaliectasis, mass, or calculi. Slight cortical thinning. Normal renal cortical parenchymal echogenicity. Color Doppler demonstrates blood flow within the kidney. Kidney: 9.6 x 5.6 x 5.3 cm BLADDER: No visible wall thickening, mass, or calculi. US/US renal BI IMPRESSION: 1. No suspicious findings to account for patient's symptoms. Electronically authenticated by: SHAY BERNSTEIN Date: 03/03/2024 11:15
--- OUTSIDE RECORDS SUMMARY | 2024-03-03 09:06 | XMS_ITS | CCD ---
Author Organization [facility] Inform ion Partnership [facility] Care Team Providers Care 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 Name Role Phone CRESCENCIO FLETCHER Referring WILL Aguilar Primary Care Unavailable MYA BHAKTA Attending Unavailable MYA BHAKTA Admitting Unavailable ME Procedure Practitioner Unavailab CONNOR Herrera Surgeon Unavailable MYA BHAKTA Surgeon Unavailable ME Procedure Practitioner Unavailab WILL Jackson Primary Care Physician Will Sherwood MD Primary Care Provider JARETT, DR WILL Del Toro Attending Unavailable SHERWOOD, [...] Care Unavailable MISC, DR HERRERA Consulting Unavailable JENINANDINI Consulting Unavailable JENI, NANDINI Admitting Unavailable JENI, NANDINI Attending Unavailable JARETT, DR WILL Del Toro Primary Care Unavailable JARETT, DR WILL Del Toro Attending Unavailable SHERWOOD, DR WILL Del Toro Primary Care Unavailable JARETT, DR WILL Del Toro Admitting Unavailable JARETT, DR WILL Del Toro Consulting Unavailable REGGIE, DR MORRISON Admitting Unavailable ZIEBER, DR SHAY Sewell Consulting Unavailable HAY, DR MORRISON Attending Unavailable SHERWOOD, DR WILL Del Toro Primary Care Unavailable HAY, DR MORRISON Consulting Unavailable MOUKARBEL, DR BREWER Consulting Unavailable JARETT, DR WILL Del Toro Primary Care Unavailable MOUKARBEL, DR BREWER Admitting Unavailable MOUKARBEL, DR BREWER Attending Unavailable SHERWOOD, DR WILL Del Toro Primary Care Unavailable JENI, NANDINI Consulting Unavailable JENI, NANDINI Admitting Unavailable JENI, NANDINI Attending Unavailable SHERWOOD, DR WILL Del Toro Primary Care Unavailable SHERWOOD, DR WILL Del Toro Consulting Unavailable JENI, NANDINI Admitting Unavailable JENI, NANDINI Attending Unavailable JENI, NANDINI Consulting Unavailable MOUKARBEL, DR BREWER Consulting Unavailable [...] DR DANIELLA Nicolas Consulting Unavailable ENGELER, DR DANIELLA Nicolas Admitting Unavailable ENGELER, DR DANIELLA Nicolas Attending Unavailable SHERWOOD, DR WILL Del Toro Primary Care Unavailable MOUKARBEL, DR BREWER Consulting Unavailable MOUKARBEL, DR BREWER Attending Unavailable MOUKARBEL, [...] WILL Del Toro Primary Care Unavailable JENI, NANDINI Consulting Unavailable JENI, NANDINI Admitting Unavailable JENI, NANDINI Attending Unavailable FLOREZ, ALLAN Consulting Unavailable PITO PATTERSON Consulting Unavailable PITO PATTERSON Admitting Unavailable PITO PATTERSON Attending Unavailable SHERWOOD, DR WILL Del Toro Primary Care Unavailable Will Sherwood MD Primary Care Provider Pito Patterson. Primary Care Physician BERT ACEVEDO Attending Unavailable MOUKARBEL, DANIELLA Attending Unavailable DANIELLA EASTON Attending Unavailable ANASTASIA SINHA Attending Unavailable DANIELLA EASTON Admitting Unavailable DANIELLA EASTON Attending Unavailable CONNOR CARRERA Referring Unavailable ANASTASIA SINHA Attending Unavailable DANIELLA EASTON Attending Unavailable Pito Patterson MD Primary Care Provider PITO PATTERSON Primary Care Unavailable PITO PATTERSON Primary Care Unavailable TYLER DRAPER Attending Unavailable PITO PATTERSON Primary Care Unavailable Pito Patterson Attending Unavailable Pito Patterson Attending Unavailable Pito Patterson Attending Unavailable Pito Patterson Attending Unavailable Pito Patterson Attending Unavailable Marlys Olivia Attending Unavailable Oni MCKEON Attending Unavailable Oni MCKEON Attending Unavailable Oni MCKEON Admitting Unavailable Oni MCKEON Attending Unavailable Oni MCKEON Referring Unavailable Oni MCKEON Admitting Unavailable Oni MCKEON Attending Unavailable Pito Patterson Admitting Unavailable Pito Patterson Attending Unavailable Pito Patterson Attending Unavailable Pito Patterson Attending Unavailable Pito Patterson Attending Unavailable Pito Patterson Attending Unavailable Allergies Allergy Classification Reported Allergen(s) Allergy Type Date of Onset Reaction(s) Facility (7 sources) Spironolactone; Translations: [SPIRONOLACTONE] Drug Allergy 09-18-2021 Other: See Comments [facility] Medications Current Medications Medication Drug Class(es) Dates Sig (Normalized) Sig (Original) Acetaminophen / Codeine (7 sources) Opioid Agonist Start: 02-24-2019 take 1 tablet by mouth every six hours acetaminophen-cod eine #3 tab(s), Oral, q6hr Start Date: 02/24/19 Status: Ordered acetaminophen-co deine (TYLENOL-COD #3) 300-30 mg per tablet acetaminophen 300 mg-codeine 30 mg tablet 0 Active Comment on above: acetaminophen 300 mg -codeine 30 mg tablet albuterol 0.833 mg/ml / ipratropium bromide 0.167 mg/ml inhalation solution (6 sources) Anticholinergic, beta2-Adrenergic Agonist Start: 02-25-20 19 take 1 dose by inhalation every six hours as needed ipratropium-albute rol (DUONEB) 0.5 mg-3 mg(2.5 mg base)/3 mL nebu INHALE 1 VIAL VIA NEBULIZER EVERY 6 HOURS NEEDED *DX J44.9* 4 02/24/2019 Active Comment on above: INHALE 1 VIAL VIA NE BULIZER EVERY 6 HOURS NEEDED *DX J44.9* amoxicillin 500 mg oral capsule (6 sources) Penicillin-class Antibacterial Start: 10-05-19 amoxicillin (POLYMOX, AMOXIL) 500 mg capsule Take 500 mg by mouth. 0 10/05/2020 Active Comment on above: Take 500 mg by mouth . aspirin 81 mg delayed release oral tablet (7 sources) Platelet Aggregation Inhibitor, Nonsteroidal Anti-inflammatory Drug Start: 05-11-20 take 1 tablet by mouth once daily aspirin 81 mg Oral EC Tab 81 mg = 1 tab(s), Oral, Daily, Refills(s) 0 Start Date: 05/11/23 Status: Ordered Comment on above: Take 81 mg by mouth once daily. budesonide 0.25 mg/ml inhalation suspension (11 sources) Corticosteroid Start: 09-30-19 24 take 0.5 mg by inhalation twice daily budesonide 0.5 mg/2 mL Inh Susp 0.5 mg = 2 mL, NEB, BID, # 120 mL, Refills(s) 11, Pharmacy: [facility], 168, cm, 08/24/23 10:28:00 EST, Height/Length Dosing, 97.4, kg, 08/24/23 10:28:00 EST, Weight Dosing Start Date: 09/30/23 Status: Ordered Start: 10-28-2022 take 0.5 mg by inhal ation twice daily budesonide 0.5 mg/2 mL Inh Susp 0.5 mg = 2 mL, NEB, BID, # 120 mL, Refills(s) 11, Pharmacy: [facility]/pharmacy #[id number], 162, cm, 10/28/22 15:18:00 EDT, [...] 2 mL. Calcium Citrate / Vitamin D (5 sources) Start: 019 calcium-vitamin D Start Date: 02/24/19 Status: Ordered CALCIUM CITRATE-VITAMIN D3 ORAL (6 sources) CALCIUM CITRATE-VITAMIN D3 ORAL Take by mouth. 0 Active Comment on above: Take by mouth. cephalexin 500 mg oral capsule (6 sources) Cephalosporin Antibacterial Start: 021 cephALEXin (KEFLEX) 500 mg capsule Take 500 mg by mouth. 0 10/31/2020 Active Comment on above: Take 500 mg by mouth . cholecalciferol 0.025 mg oral tablet (6 sources) Vitamin D cholecalciferol (VITAMIN D3) 1,000 unit tab tablet Take 1,000 Units by mouth. 0 Active Comment on above: Take 1,000 Units by mouth. cyanocobalamin, vitamin B-12, (VITAMIN B-12 ORAL) (6 sources) cyanocobalamin, vitamin B-12, (VITAMIN B-12 ORAL) Take by mouth. 0 Active Comment on above: Take by mouth. doxycycline hyclate 100 mg oral capsule (6 sources) Tetracycline-class Drug take 1 capsule by mouth once daily doxycycline hyclate (VIBRAMYCIN) 100 mg capsule Take 100 mg by mouth once daily. 0 Active Comment on above: Take 100 mg by mouth once daily. ferrous sulfate 325 mg oral tablet (6 sources) Start: 021 ferrous sulfate 325 mg (65 mg iron) tablet furosemide 40 mg oral tablet (10 sources) Loop Diuretic Start: 023 take 1 tablet by mouth once daily furosemide 40 mg Tab 40 mg = 1 tab(s), Oral, Daily, Refills(s) 0 Start Date: 01/22/23 Status: Ordered Start: 06-26-2021 furosemide (LA SIX) 20 mg tablet q 24 HR. 0 06/26/2021 Active Comment on above: q 24 HR. gabapentin 300 mg oral capsule (4 sources) Anti-epileptic Agent Start: 10-19-2023 take 1 capsule by mouth once daily gabapentin 300 mg Cap 300 mg = 1 cap(s), Oral, Daily, Refills(s) 0 Start Date: 10/19/23 Status: Ordered Start: 03-09-2023 take 1 capsule by [facility] once daily at bedtime gabapentin 300 mg Cap 300 mg = 1 cap(s), Oral, Once a day (at bedtime), # 30 cap(s), Refills(s) 0, Pharmacy: [facility]/pharmacy #[id number], 168, cm, 03/09/23 11:04:00 EDT, Height/Length Dosing, 103, kg, 03/09/23 11:04:00 EDT, Weight Dosing Start Date: 03/09/23 Status: Ordered Start: 01-22-2023 take 1 capsule by [facility] once daily at bedtime gabapentin 300 mg Cap 300 mg = 1 cap(s), Oral, Once a day (at bedtime), # 30 cap(s), Refills(s) 0, Pharmacy: [facility]/pharmacy #[id number], 162, cm, 01/22/23 13:19:00 EDT, Height/Length Dosing, 98.3, kg, 01/22/23 13:19:00 EDT, Weight Dosing Start Date: 01/22/23 Status: Ordered Handicap Placard, 5 years. (1 source) Start: 10-19-[address], 5 years. Handicap Placard, 5 years., See Instructions, 1 EA, 0, Handicap Placard, 5 years., Supply Start Date: 10/19/23 Status: Ordered ipratropium bromide 0.042 mg/actuat metered dose nasal spray (4 sources) Anticholinergic Start: 03-13-2023 End: 03-07-2024 take 2 spray(s) nasal route twice daily, then take 2 spray(s) nasal route twice daily ipratropium Nasal 0.06% [place] 2 spray(s), Nasal, BID for 90 day(s), 45 mL, Refill(s) 3, PLACE 2 SPRAYS IN EACH NOSTRIL TWO TIMES DAILY., [facility]/pharmacy #[id number], 168, cm, 03/09/23 11:04:00 EDT, Height/Length Dosing, 103, kg, 03/09/23 11:04:00 EDT, Weight Dosing Start Date: 03/13/23 Stop Date: 03/07/24 Status: Ordered Start: 02-20-2023 take 1 dose nasal ro kathryn twice daily, then take 2 spray(s) nasal route twice daily ipratropium Nasal 0.06% [place] 2 spray(s), Nasal, BID, 1 EA, Refill(s) 1, PLACE 2 SPRAYS IN EACH NOSTRIL TWO TIMES DAILY., [facility]/pharmacy #[id number], 162, cm, 01/22/23 13:19:00 EDT, Height/Length Dosing, 98.3, kg, 01/22/23 13:19:00 EDT, Weight Dosing Start Date: 02/20/23 Status: Ordered Start: 01-22-2023 take 1 dose nasal ro kathryn twice daily, then take 2 spray(s) nasal route twice daily ipratropium Nasal 0.06% [place] 2 spray(s), Nasal, BID, 1 EA, Refill(s) 1, PLACE 2 SPRAYS IN EACH NOSTRIL TWO TIMES DAILY., [facility]/pharmacy #[id number], 162, cm, 01/22/23 13:19:00 EDT, Height/Length Dosing, 98.3, kg, 01/22/23 13:19:00 EDT, Weight Dosing Start Date: 01/22/23 Status: Ordered levothyroxine sodium 0.1 mg oral tablet (11 sources) l-Thyroxine Start: 10-19-2023 take 1 tablet by mouth once daily levothyroxine 100 mcg (0.1 mg) Tab 100 mcg = 1 tab(s), Oral, Daily, # 90 tab(s), Refills(s) 0, [id number], cm, 10/19/23 8:08:00 EST, Height/Length Dosing, 101.5, kg, 10/19/23 8:08:00 EST, Weight Dosing Start Date: 10/19/23 Status: Ordered Start: 02-24-2019 take 1 tablet [...] mcg by mout h daily before breakfast. 24 hr metoprolol succinate 25 mg extended release oral tablet (10 sources) beta-Adrenergic Xochitl Start: 10-28-2022 take 1 tablet by mouth once daily metoprolol 25 mg ER Tab 25 mg = 1 tab(s), Oral, Daily, # 30 tab(s), Refills(s) 0 Start Date: 10/28/22 Status: Ordered Start: 10-28-2022 metoprolol 25 mg ER Tab 12.5 mg = 0.5 tab(s), Oral, Daily, # 30 tab(s), Refills(s) 0 Start Date: 10/28/22 Status: Ordered take 25 mg by mouth once daily M ETOPROLOL SUCCINATE ORAL Take 25 mg by mouth once daily. 0 Active Comment on above: Take 25 mg by mouth once daily. Nebulizer accessory set (4 sources) Start: 01-23-20 Nebulizer accessory set Nebulizer accessory set, See Instructions, 1 EA, 0, pt to use nebulizer as prescribed for COPD, [facility] ([facility] Supply, 162, cm, 01/22/23 13:19:00 EDT, Height/Length Dosing, 98.3, kg, 01/22/23 13:19:00 EDT, Weight Dosing Start Date: 01/22/23 Status: Ordered polyethylene glycol 3350 80368 mg powder for oral solution (6 sources) Osmotic Laxative Start: 08-04-20 polyethylene glycol 3350 (MIRALAX, GLYCOLAX) 17 gram/dose powder MIX 1 TABLESPOONFUL DIRECTED AND DRINK EVERY DAY 3 08/04/2017 Active Comment on above: MIX 1 TABLESPOONFUL DIRECTED AND DRINK EVERY DAY predniSONE 10 mg oral tablet (6 sources) take 1 tablet by mouth once daily predniSONE (DELTASONE) 10 mg tablet Take 10 mg by mouth once daily. 0 Active Comment on above: Take 10 mg by mouth once daily. salmeterol (11 sources) beta2-Adrenergic Agonist Start: 04-17-20 Serevent Diskus 50 mcg inhalation powder 50 mcg, 1 EA, Inhalation, q12hr, 3 EA, Refill(s) 3, [facility] ([facility]), 168, cm, 03/09/23 11:04:00 EDT, Height/Length Dosing, 103, kg, 03/09/23 11:04:00 EDT, Weight Dosing Start Date: 04/17/23 Status: Ordered Start: 05-01-2020 Serevent Disku s 50 mcg inhalation Inhalation, BID, Refills(s) 0 Start Date: 05/01/20 Status: Ordered take 1 puff(s) by in halation twice daily salmeterol (SEREVENT DISKUS) 50 mcg/dose diskus inhaler Inhale 1 Puff as instructed twice daily. 0 Active Comment on above: Inhale 1 Puff as ins tructed twice daily. spironolactone 50 mg oral tablet (7 sources) Aldosterone Antagonist Start: take 1 tablet by mouth once daily spironolactone 50 mg Tab 50 mg = 1 tab(s), Oral, Daily Start Date: 02/24/19 Status: Ordered Comment on above: spironolactone 50 mg tablet vitamin B12 (5 sources) Vitamin B12 Start: Vitamin B12 Start Date: 02/24/19 Status: Ordered Completed/Discontinued Medications Medication Drug Class(es) Dates Sig (Normalized) Sig (Original) albuterol 0.83 mg/ml inhalation solution (16 sources) beta2-Adrenergic Agonist Start: 10-19-2023 take 1 dose by inhalation every four hours albuterol 0.083% Inh Kasie 3 mL See Instructions, 300 mL, Refill(s) 3, INHALE 1 VIAL VIA NEBULIZER EVERY 4 HOURS, [facility]/pharmacy #[id number], 168, cm, 10/19/23 8:08:00 EST, Height/Length Dosing, 101.5, kg, 10/19/23 8:08:00 EST, Weight Dosing Start Date: 10/19/23 Status: Ordered Start: 12-17-2022 take 2.5 mg by inhal ation every four hours albuterol 0.083% Inh Kasie 3 mL 2.5 mg, 3 mL, NEB, q4hr, 300 mL, Refill(s) 3, [id number], 162, cm, 10/28/22 15:18:00 EDT, Height/Length Dosing, 99.8, kg, 10/28/22 15:18:00 EDT, Weight Dosing Start Date: 12/17/22 Status: Ordered Start: 12-17-2022 albuterol 0.08 3% Inh Kasie 3 mL See Instructions, 150 mL, Refill(s) 0, INHALE 1 VIAL VIA NEBULIZER EVERY 6 HOURS, [id number], 162, cm, 10/28/22 15:18:00 EDT, Height/Length Dosing, [...] 1 VIAL VIA NEBULIZER EVERY 4 HOURS ciprofloxacin 500 mg oral tablet (1 source) Quinolone Antimicrobial Start: 03-10-20 take 1 tablet by mouth once daily Cipro 500 mg Tab 500 mg = 1 tab(s), Oral, Daily, Take 1 tablet the day before the procedure and 1 tablet after the procedure, # 2 tab(s), Refills(s) 0, Pharmacy: [facility]/pharmacy #[id number], 168, cm, 03/09/23 11:04:00 EDT, Height/Length Dosing, 103, kg, 03/09/23 11:04:00 EDT,... Start Date: 03/10/23 Status: Ordered Electric scooter (1 source) Start: 09-03-19 Electric scooter Electric scooter, See Instructions, 1 EA, 0, Pt would like an electric scooter, Supply Start Date: 09/03/23 Status: Ordered indacaterol (7 sources) Start: 02-25-20 take 1 capsule by inhalation once daily Arcapta Neohaler 75 mcg inhalation capsule 75 microgram = 1 cap(s), Inhalation, Daily Start Date: 02/24/19 Status: Ordered indacaterol (ARC APTA NEOHALER) 75 mcg CpDv Arcapta Neohaler 75 mcg capsule with inhalation device 0 Active Comment on above: Arcapta Neohaler 75 mcg capsule with inhalation device potassium chloride 10 meq oral tablet (10 sources) Start: 08-24-2023 take 1 tablet by mouth once daily potassium chloride 10 mEq ER Tab 10 mEq = 1 tab(s), Oral, Daily, # 90 tab(s), Refills(s) 1, Pharmacy: [facility], 168, cm, 08/24/23 10:28:00 EST, Height/Length Dosing, 97.4, kg, 08/24/23 10:28:00 EST, Weight Dosing Start Date: 08/24/23 Status: Ordered Start: 01-22-2023 take 1 tablet by noe th once daily potassium chloride 10 mEq ER Tab 10 mEq = 1 tab(s), Oral, Daily, Refills(s) 0 Start Date: 01/22/23 Status: Ordered Start: 06-26-2021 potassium chlo ride SR (MICRO-K) 10 mEq CR capsule tiotropium 0.018 mg inhalation powder (11 sources) Anticholinergic Start: 06-01-2023 Spiriva 18 mcg Cap 18 mcg = 1 cap(s), Inhalation, Daily, Using only ONE capsule, have the patient inhale twice, # 90 cap(s), Refills(s) 1, Pharmacy: [facility], 168, cm, 05/28/23 15:16:00 EDT, Height/Length Dosing, 98.9, kg, 05/28/23 15:24:00 EDT, Weight Dosing Start Date: 06/01/23 Status: Ordered Start: 02-24-2019 Spiriva 18 mcg [...] Problem Date Documented Date Episodic/Chronic Abdominal hernia (4 sources) Hernia of anterior abdominal wall 10-28-2022 Episodic Calculus of urinary tract (4 sources) Kidney stone 06-07-2019 Episodic Cancer of prostate (5 sources) Malignant tumor of prostate; Translations: [Malignant neoplasm of prostate] Onset: 01-07-2022 01-05-2020 Chronic Cancer of prostate (7 sources) Personal history of malignant neoplasm of prostate; Translations: [History of malignant neoplasm of prostate] Onset: 11-19-2021 Episodic Chronic kidney disease (1 source) Chronic kidney disease stage 3A 10-19-2023 Chronic Chronic obstructive pulmonary disease and bronchiectasis (7 sources) Asthma-chronic obstructive pulmonary disease overlap syndrome; Translations: [Chronic obstructive pulmonary disease, unspecified] Onset: 05-20-2021 02-24-2019 Chronic Conduction disorders (7 sources) Atrioventricular block, complete; Translations: [Presence of cardiac pacemaker] Onset: 05-23-2022 Chronic Comment on above: noted in 07/28/2023 Cardiology Consult Note page 1. added per OP [facility] policy. Congestive heart failure; nonhypertensive (9 sources) Chronic systolic (congestive) heart failure; Translations: [Heart failure, unspecified] Onset: 04-29-2021 Chronic Comment on above: Noted in 05/21/2023 U T page 1, added per outpatient [facility]I policy. Deficiency and other anemia (2 sources) Macrocytic anemia; Translations: [Nutritional anemia, unspecified] Episodic Comment on above: noted in 07/21/2023 Cardiology Consult Note page 4. added per OP [facility] policy. Disorders of lipid metabolism (6 sources) Hyperlipidemia, unspecified; Translations: [Mixed hyperlipidemia] Onset: 02-10-2022 Chronic Genitourinary symptoms and ill-defined conditions (12 sources) Poor stream of urine; Translations: [Poor urinary stream] Onset: 11-19-2021 Episodic Hyperplasia of prostate (12 sources) Benign prostatic hypertrophy with outflow obstruction; Translations: [Benign prostatic hyperplasia with lower urinary tract symptoms] Onset: 11-19-2021 Chronic Immunity disorders (4 sources) Hypergammaglobulinemia , unspecified; Translations: [HYPERGAMMAGLOBULINEMI A UNSPECIFIED] Onset: 09-24-2021 Chronic Neoplasms of unspecified nature or uncertain behavior (3 sources) Monoclonal gammopathy of uncertain significance; Translations: [Monoclonal gammopathy] Chronic Non-Hodgkin`s lymphoma (8 sources) Malignant lymphoma; Translations: [Diffuse non-Hodgkin's lymphoma, large cell (clinical)] Onset: 02-21-2013 02-24-2019 Chronic Non-Hodgkin`s lymphoma (4 sources) History of B-cell lymphoma 10-28-2022 Episodic Nutritional deficiencies (1 source) Vitamin D deficiency, unspecified; Translations: [VITAMIN D DEFICIENCY UNSPECIFIED] Onset: 05-03-2021 Chronic Other circulatory disease (7 sources) Personal history of transient ischemic attack (TIA), and cerebral infarction without residual deficits; Translations: [PERS HX TIA AND CI NO RESID DEFICIT] Onset: 09-06-2021 Episodic Other circulatory disease (4 sources) History of cerebrovascular disease 10-28-2022 Episodic Other ear and sense organ disorders (1 source) Hearing loss 04-07-2023 Chronic Other eye disorders (5 sources) Anisocoria; Translations: [ANISOCORIA] Onset: 05-16-2021 Chronic Other fractures (1 source) Compression fracture of vertebral column 02-24-2019 Episodic Other fractures (4 sources) Wedge fracture of thoracic vertebra 10-28-2022 Episodic Other hereditary and degenerative nervous system conditions (4 sources) Essential tremor 10-28-2022 Chronic Other lower respiratory disease (6 sources) Other forms of dyspnea; Translations: [OTHER FORMS OF DYSPNEA] Onset: 04-16-2022 Episodic Other nervous system disorders (4 sources) 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 Other nervous system disorders (1 source) Walking disability 08-24-2023 Chronic Other nutritional; endocrine; and metabolic disorders (1 source) Hypomagnesemia; Translations: [HYPOMAGNESEMIA] Onset: 05-03-2021 Chronic Other nutritional; endocrine; and metabolic disorders (3 sources) Obesity 01-16-2023 Chronic Other nutritional; endocrine; and metabolic disorders (1 source) Obesity caused by energy imbalance 10-16-2023 Chronic Other nutritional; endocrine; and metabolic disorders (1 source) Severe obesity 05-27-2023 Chronic Comment on above: Noted in 05/21/2023 U T page 1 note, added per outpatient [facility] policy. Other screening for suspected conditions (not mental disorders or infectious disease) (6 sources) Raised prostate specific antigen; Translations: [Abnormal findings on diagnostic imaging of heart and coronary circulation] Onset: 05-28-2021 05-23-2019 Episodic Other upper respiratory disease (3 sources) Nasal congestion 01-22-2023 Episodic Pulmonary heart disease (3 sources) Pulmonary hypertension, unspecified; Translations: [Pulmonary hypertension] Onset: 09-09-2023 Chronic Comment on above: Noted in 05/21/2023 U T page 1, added per outpatient [facility]I policy. Residual codes; unclassified (1 source) Obstructive sleep apnea syndrome 10-16-2023 Chronic Residual codes; unclassified (5 sources) Localized edema; Translations: [LOCALIZED EDEMA] Onset: 02-07-2022 Episodic Respiratory failure; insufficiency; arrest (adult) (1 source) Chronic hypoxemic respiratory failure 10-19-2023 Chronic Screening and history of mental health and substance abuse codes (6 sources) Ex-smoker; Translations: [Personal history of nicotine dependence] Onset: 05-28-2021 05-23-2019 Episodic Thyroid disorders (9 sources) Hypothyroidism; Translations: [Hypothyroidism, unspecified] Onset: 05-28-2021 02-24-2019 Chronic Unclassified (1 source) CONTACT W/AND (SUSP) EXPOS COVID-19; Translations: [CONTACT W/AND (SUSP) EXPOS COVID-19] Onset: 05-28-2021 Unclassified (1 source) Other ventricular tachycardia; Translations: [Other ventricular tachycardia] Onset: 09-09-2023 Past or Other Problems Problem Classification Problem [...] fatigue; Translations: [OTHER FATIGUE] Onset: 06-14-2021 Episodic Nutritional deficiencies (11 sources) Cobalamin deficiency; Translations: [Deficiency of other specified B group vitamins] Onset: 07-13-2017 07-13-2017 Episodic Other aftercare (1 source) 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; Translations: [MANUFACTURING AREA MANAGER CURRENT USE OF ASPIRIN] Onset: 05-28-2021 Episodic Other aftercare (1 source) Other prison (current) drug therapy; Translations: [OTH MANUFACTURING AREA MANAGER CURRENT DRUG THERAPY] Onset: 05-28-2021 Episodic Other [...] ventricular tachycardia; Translations: [Other ventricular tachycardia] Onset: 09-09-2023 Results Test Name Value Interpretation Reference Range Facility [facility]inderson 02-26-2024 Reminders Reminders From: Solange Broussard To: EU - Recalls Mike; Sent: 06/09/2023 16:03:24 EDT Show up: 01/16/2024 16:03:00 EDT Subject: renal US Due Date/Time: 02/01/2024 16:03:00 EDT Reminder/Recall Patient needs renal US prior to February 2024 appt f/u scheduled 03/14/24 LM on pt's VM notifying him that order for ZAMZAM has been faxed to [facility]. They should be reaching out to get him scheduled. If he does not hear from them w/in 1wk he is to call our office. F/U schedule dw/PRW 03/14/24 to review results. ZAMZAM scheduled 03/03/24. F/U schedule dw/PRW 03/14/24 to review results. Normal [facility] Ambulatory Visit Summaryon 0 02-15-2024 Ambulatory Visit Summary Ambulatory Visit Summary CHIKI JUAREZ :1945 Visit Date:02/15/2024 Ambulatory Visit Instructions Your Diagnosis COPD with asthma Chronic diastolic heart failure Chronic hypoxic respiratory failure Chronic kidney disease, stage 3a BMI 36.0-36.9,adult Class 1 obesity due to excess calories in adult Former smoker JUANA (obstructive sleep apnea) Neuropathy, arm Mass of leg Back pain Your Care Team Attending Physician - Pito Patterson MD Primary Care Physician - Pito Patterson MD. This Is Your Medications List acetaminophen-codeine (Tylenol with Codeine #3 oral tablet) Contact prescribing physician if questions or concerns Misc Prescription (Electric scooter) Misc Prescription (Lissa Macias, 5 years.) Misc Prescription (Nebulizer accessory set) Oxygen (Oxygen - for Home) albuterol (albuterol 0.083% Inh Kasie 3 mL) aspirin (aspirin 81 mg Oral EC Tab) budesonide (budesonide 0.5 mg/2 mL Inh Susp) calcium-vitamin D cyanocobalamin (Vitamin B12) furosemide (furosemide 40 mg Tab) gabapentin (gabapentin 300 mg Cap) ipratropium nasal (ipratropium Nasal 0.06% [place]) levothyroxine (levothyroxine 100 mcg (0.1 mg) Tab) metoprolol (metoprolol 25 mg ER Tab) potassium chloride (potassium chloride 10 mEq ER Tab) salmeterol (Serevent Diskus 50 mcg inhalation powder) sodium chloride (Hyper-Flaco 3.5% inhalation solution) tezepelumab (Tezspire Pre-filled Pen 210 mg/1.91 mL subcutaneous solution) tiotropium (tiotropium 18 mcg Inh Cap) Procedures Performed Cardiac pacemaker (2019), Transrectal biopsy of prostate using ultrasound (US) guidance (03/10/2019), Cystourethroscopy (03/12/2010), Lymphadenectomy of sentinel lymph node (08/17/2006). What to do next Scheduled Follow-Up Appointments Thursday 11:15 AM EDT With: MIKE VENTURA, Oni Sewell Where: [facility] Invalid Interpretation Code [address] [place] [address]- \.br \ Thursday 8:00 AM EDT \.br\ With:\.br\ Where: [facility] Medicine Office/Clini c Noteon 02-15-2024 Family Medicine Office/Clinic Note Family Medicine Office/Clinic Note HPI Staff Chiki is a 78 year old male presenting for 3 month follow up chronic conditions COPD, chf, hypoxic respiratory failure, CKD Patient is here for follow up on COPD: Feeling controlled on medication: as much as he can be Need medication refilled: Do you use O2? yes increased to 4 liters questions/concerns: cpap, nebulizer and oxygen concentrator and portable concentrator all needs refilled to [facility]. ( [facility]) Needs his gabapentin refilled to [facility] History of Present Illness - Pt here for follow up. - Reviewed records from pulm - Pt states he wants a script for Tylenol 3 as he works hard. This causes his back pain to flare up. Physical Exam General: alert, no acute distress ENMT: oral mucosa moist, Cardiovascular: regular rate and rhythm, normal peripheral perfusion, Respiratory: Lungs CTA, respirations non labored, Minimally Diminished Extremities: no deformity, no trauma, Trace pitting edema Neurological: oriented x 4, LOC appropriate for age, CN II-XII intact, motor strength equal & normal bilaterally, speech normal Abdomen: Soft, Nontender, Non-distended, + BS Assessment/Plan 1. 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 - I have never seen him on O2. - Pt states he wears it at night Ordered: Medicare Subsequent Visit G0439 2. Chronic diastolic heart failure (I50.32: Chronic diastolic (congestive) heart failure) - Sees Cardiology. Ordered: Medicare Subsequent Visit G043 3. Chronic hypoxic respiratory failure (J96.11: Chronic respiratory failure with hypoxia) - Per number 1. Ordered: Medicare Subsequent Visit G0439 4. Chronic kidney disease, stage 3a (N18.31: Chronic kidney disease, stage 3a) - Stable - Reviewed labs Ordered: Medicare Subsequent Visit G043 5. BMI 36.0-36.9,adult (Z68.36: Body mass index [BMI] 36.0-36.9, adult) - BMI education added 6. Class 1 obesity due to excess calories in adult (E66.09: Other obesity due to excess calories) - Diet and exercise advised 7. Former smoker (Z87.891: Personal history of nicotine dependence) - Please continue to not smoke. Ordered: Medicare Subsequent Visit G043 8. JUANA (obstructive sleep apnea) (G47.33: Obstructive sleep apnea (adult) (pediatric)) - Uses the CPAP everyday - Bleeds in Oxygen - This helps control his symptoms Ordered: Medicare Subsequent Visit G0439 9. 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 10. Mass of leg (R22.40: Localized swelling, mass and lump, unspecified lower limb) - Will try and get records from [facility] - Will work up base off imaging. 11. Back pain (M54.9: Dorsalgia, unspecified) Will do Tylenol three and patient states he barely uses them. Ordered: acetaminophen-codeine, 1 tab(s), Oral, q4hr for pain for 7 day(s), 20 tab(s), Refill(s) 0, [id number], 161, cm, 02/15/24 10:32:00 EDT, Height/Length Dosing, 102, kg, 02/15/24 10:32:00 EDT, Weight Dosing Orders: 1126F Pain severity quantified; no pain present Advance care planning discussion documented in the medical record 1158F Annual alcohol misuse screening, 15 min G0442 Annual Depression Screening 15 min G0444 Body Mass Index (BMI) documented 3008F Current tobacco non-user 1036F Depression Screening Negative 3352F Functional status assessed 1170F Influenza immunization administered or previously received 4274F Medication list documented in medical record 1159F Most recent diastolic blood pressure <80 mm Hg 3078F Patient screen for fall risk: no falls in last year or 1 fall with no injury in last year 1101F Pneumonia Vax administered or previously received 4040F Review of all meds by a prescribing practitioner or clinical pharmacist documented in EHR 1160F Systolic BP <130 mm Hg (Most Recent) 3074F Follow-up No qualifying data available Problem List/Past Medical History Ongoing B12 deficiency BPH with urinary obstruction Cardiac pacemaker in situ Chronic diastolic heart failure Chronic hypoxic respiratory failure Chronic kidney disease, stage 3a Compression fracture of thoracic vertebra with routine healing, unspecified thoracic vertebral level, subsequent encounter COPD with asthma Decreased ambulation status Essential tremor Former smoker Hearing loss History of B-cell lymphoma History of prostate cancer Hx of cerebrovascular disorder Hypothyroid Macrocytic anemia Mass of leg MGUS (monoclonal gammopathy of unknown significance) Neuropathy, arm Obesity due to excess calories JUANA (obstructive sleep apnea) Prostate nodule Pulmonary hypertension Severe obesity Ventral hernia Historical No qualifying data Procedure/Surgical History Cardiac pacemaker (2019), Transr (more content not included)... Normal [facility] Comment on above: Result Comment: Elec tronically Signed By: Navarro VENTURA, Pito Davidson\.br\Date and Time Signed: 02/15/24 12:59 EDT Physician Orderon 02-09-2024 Physician Order [id number] [facility] Oswaldo 02-02-2024 LIDAN Telephone (DONITA) -- CHIKI JUAREZ ([id number]) 1945 M Date Time Provider Department 02/02/24 VALERIE MAYES During your visit today, we recorded the following information about you: Valerie Mayes RN 02/02/2024 10:27 AM Signed ----- Message from Tyler Draper MD sent at 02/02/2024 8:08 AM EDT ----- Please inform the patient that his labs are stable. We will continue observation and see him back as scheduled. Valerie Mayes RN 02/02/2024 10:28 AM Signed Pt informed of BRM message and denies any questions, needs or concerns at this time. Appointment verified. Valerie Mayes RN Allergies As of Date: 02/02/2024 Noted Allergy Reaction SPIRONOLACTONE 09/18/2021 14 - Other: See Comments Comments: Leg cramps, Hyperkalemia Date Reviewed: 07/31/2022 Reviewed by: Sanna Turner MA - Fully Assessed Reason for Visit: Results [95] Prescriptions as of 02/02/2024 - albuterol (PROVENTIL) 2.5 mg /3 mL [...] before breakfast. 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] 02/21/2013 B12 deficiency [E53.8] 07/13/2017 Encounter Status:Closed by VALERIE MAYES on 02/02/24 Normal [facility] Basic metabolic 2000 panelon 01-21-2024 Anion gap [Moles/Vol] 7 mmol/L Low 8-15 [facility] Comment on above: Order Comment: Speci men Type: BLOOD SPECIMEN Ordering Facility: [facility] Address: [address] [place] [address] Performed By: #### 5 7021-8 #### [facility] CLIA [id number] [address] [address] Calcium [Mass/Vol] 9.3 mg/dL Normal 8.5-10.2 [facility] Comment on above: Order Comment: Speci men Type: BLOOD SPECIMEN Ordering Facility: [facility] Address: [address] [place] [id number] Performed By: #### 5 7021-8 #### [facility] CLIA [id number] [address] [place] [address] Chloride [Moles/Vol] 109 mmol/L High 98-107 [facility] Comment on above: Order Comment: Speci men Type: BLOOD SPECIMEN Ordering Facility: [facility] Address: [address] [place] [address] Performed By: #### 5 7021-8 #### [facility] CLIA [id number] [address] [address] 13660 CO2 [Moles/Vol] 26 mmol/L Normal 22-30 [facility] Comment on above: Order Comment: Speci men Type: BLOOD SPECIMEN Ordering Facility: [facility] Address: [address] [place] [address] Performed By: #### 5 7021-8 #### [facility] CLIA [id number] [address] [address] Creatinine [Mass/Vol] 1.31 mg/dL High 0.73-1.22 [facility] Comment on above: Order Comment: Speci men Type: BLOOD SPECIMEN Ordering Facility: [facility] Address: [address] [place] [address] Performed By: #### 5 7021-8 #### [facility] CLIA [id number] [address] [address] Creatinine and Glomerular filtration rate.predicted panel (S/P/Bld) 56 mL/min/1.73m??? Low >=60 [facility] Comment on above: Order Comment: Speci men Type: BLOOD SPECIMEN Ordering Facility: [facility] Address: [address] [place], [place] [id number] Result Comment: Ary mated Glomerular Filtration Rate [...] accurately reflect actual GFR. Performed By: #### 5 7021-8 #### [facility] CLIA [id number] [address] [place] [address] Glucose [Mass/Vol] 121 mg/dL High 74-99 [facility] Comment on above: Order Comment: Speci men Type: BLOOD SPECIMEN Ordering Facility: [facility] Address: [address] [place] [address] Result Comment: The [place] Diabetes Association (ADA) provides guidance for cutoff [...] Standards of Medical Care in Diabetes 2016, [place] Diabetes Association. Diabetes Care. 2016.39(Suppl 1). Performed By: #### 5 7021-8 #### [facility] CLIA [id number] [address] [address]13 Potassium [Moles/Vol] 4.1 mmol/L Normal 3.7-5.1 [facility] Comment on above: Order Comment: Sonyi jomar Type: BLOOD SPECIMEN Ordering Facility: [facility] Address: [address] [place] [address] Performed By: #### 5 7021-8 #### [facility] CLIA [id number] [address] [place] [address] Sodium [Moles/Vol] 142 mmol/L Normal 136-144 [facility] Comment on above: Order Comment: Speci men Type: BLOOD SPECIMEN Ordering Facility: [facility] Address: [address] [place] [id number] Performed By: #### 5 7021-8 #### [facility] CLIA [id number] [address] [address] Urea nitrogen [Mass/Vol] 17 mg/dL Normal 9-24 [facility] Comment on above: Order Comment: Speci men Type: BLOOD SPECIMEN Ordering Facility: [facility] Address: [address] [place] [address] Performed By: #### 5 7021-8 #### [facility] CLIA [id number] [address] [address] 73873 CBC W Auto Differential pane l (Bld)on 01-21-2024 Basophils (Bld) [#/Vol] 10*3/uL Normal <0.11 [facility] Comment on above: Order Comment: Speci men Type: BLOOD SPECIMEN Ordering Facility: [facility] Address: [address] [place] [address] Performed By: #### 5 7021-8 #### [facility] CLIA [id number] [address] [address]40 Basophils/100 WBC (Bld) 0.3 % Normal [facility] Comment on above: Order Comment: Speci men Type: BLOOD SPECIMEN Ordering Facility: [facility] Address: [address] [place] [address] Performed By: #### 5 7021-8 #### [facility] CLIA [id number] [address] [address] 31215 Differential cell count method Nom (Bld) Auto Normal [facility] Comment on above: Order Comment: Speci men Type: BLOOD SPECIMEN Ordering Facility: [facility] Address: [address] [place] [address] Performed By: #### 5 7021-8 #### [facility] CLIA [id number] [address] [address]69 Eosinophils (Bld) [#/Vol] 10*3/uL Normal <0.46 [facility] Comment on above: Order Comment: Speci men Type: BLOOD SPECIMEN Ordering Facility: [facility] Address: [address] [place] [address] Performed By: #### 5 7021-8 #### [facility] CLIA [id number] [address] [place] [address] Eosinophils/100 WBC (Bld) 0.3 % Normal [facility] Comment on above: Order Comment: Speci men Type: BLOOD SPECIMEN Ordering Facility: [facility] Address: [address] [place] [address] Performed By: #### 5 7021-8 #### [facility] CLIA [id number] [address] [address]24 Erythrocyte distribution width (RBC) [Ratio] 14.6 % Normal 11.5-15.0 [facility] Comment on above: Order Comment: Speci men Type: BLOOD SPECIMEN Ordering Facility: [facility] Address: [address] [place] [address] Performed By: #### 5 7021-8 #### [facility] CLIA [id number] [address] [address] Hematocrit (Bld) [Volume fraction] 35.7 % Low 39.0-51.0 [facility] Comment on above: Order Comment: Speci men Type: BLOOD SPECIMEN Ordering Facility: [facility] Address: [address] [place] [address] Performed By: #### 5 7021-8 #### [facility] CLIA [id number] [address] [address] Hemoglobin (Bld) [Mass/Vol] 11.4 g/dL Low 13.0-17.0 [facility] Comment on above: Order Comment: Speci men Type: BLOOD SPECIMEN Ordering Facility: [facility] Address: [address] [place] [address] Performed By: #### 5 7021-8 #### [facility] CLIA [id number] [address] [place] [address] Immature granulocytes (Bld) [#/Vol] 0.08 10*3/uL Normal <0.10 [facility] Comment on above: Order Comment: Speci men Type: BLOOD SPECIMEN Ordering Facility: [facility] Address: [address] [place] [address] Performed By: #### 5 7021-8 #### [facility] CLIA [id number] [address] [address]226 Immature granulocytes/100 WBC (Bld) 2.2 % Normal [facility] Comment on above: Order Comment: Speci men Type: BLOOD SPECIMEN Ordering Facility: [facility] Address: [address] [place] [address] Performed By: #### 5 7021-8 #### [facility] CLIA [id number] [address] [address] 68568 Lymphocytes (Bld) [#/Vol] 0.92 10*3/uL Low 1.00-4.00 [facility] Comment on above: Order Comment: Speci men Type: BLOOD SPECIMEN Ordering Facility: [facility] Address: [address] [place] [address] Performed By: #### 5 7021-8 #### [facility] CLIA [id number] [address] [address] 8[address]59 Lymphocytes/100 WBC (Bld) 25.2 % Normal [facility] Comment on above: Order Comment: Speci men Type: BLOOD SPECIMEN Ordering Facility: [facility] Address: [address] [place] [address] Performed By: #### 5 7021-8 #### [facility] CLIA [id number] [address] [address] 62471 MCH (RBC) [Entitic mass] 33.8 pg Normal 26.0-34.0 [facility] Comment on above: Order Comment: Speci men Type: BLOOD SPECIMEN Ordering Facility: [facility] Address: [address] [place] [address] Performed By: #### 5 7021-8 #### [facility] CLIA [id number] [address] [place] [address] MCHC (RBC) [Mass/Vol] 31.9 g/dL Normal 30.5-36.0 [facility] Comment on above: Order Comment: Speci men Type: BLOOD SPECIMEN Ordering Facility: [facility] Address: [address] [place] [address] Performed By: #### 5 7021-8 #### [facility] CLIA [id number] [address] [address] 26894 MCV (RBC) [Entitic vol] 105.9 fL High 80.0-100.0 [facility] Comment on above: Order Comment: Speci men Type: BLOOD SPECIMEN Ordering Facility: [facility] Address: [address] [place] [address] Performed By: #### 5 7021-8 #### [facility] CLIA [id number] [address] [address]23 Monocytes (Bld) [#/Vol] 1.38 10*3/uL High <0.87 [facility] Comment on above: Order Comment: Speci men Type: BLOOD SPECIMEN Ordering Facility: [facility] Address: [address] [place] [address] Performed By: #### 5 7021-8 #### [facility] CLIA [id number] [address] [address] 29780 Monocytes/100 WBC (Bld) 37.8 % Normal [facility] Comment on above: Order Comment: Speci men Type: BLOOD SPECIMEN Ordering Facility: [facility] Address: [address] [place] [address] Performed By: #### 5 7021-8 #### [facility] CLIA [id number] [address] [address] 96720 Neutrophils (Bld) [#/Vol] 1.25 10*3/uL Low 1.45-7.50 [facility] Comment on above: Order Comment: Speci men Type: BLOOD SPECIMEN Ordering Facility: [facility] Address: [address] [place] [address] Performed By: #### 5 7021-8 #### [facility] CLIA [id number] [address] [address] 9[address]99 Neutrophils/100 WBC (Bld) 34.2 % Normal [facility] Comment on above: Order Comment: Speci men Type: BLOOD SPECIMEN Ordering Facility: [facility] Address: [address] [place] [address] Performed By: #### 5 7021-8 #### [facility] CLIA [id number] [address] [address] 99119 Nucleated RBC (Bld) [#/Vol] 10*3/uL Normal <0.01 [facility] Comment on above: Order Comment: Speci men Type: BLOOD SPECIMEN Ordering Facility: [facility] Address: [address] [place] [address] Performed By: #### 5 7021-8 #### [facility] CLIA [id number] [address] [address] 10332 Nucleated RBC/100 WBC (Bld) [Ratio] 0.0 /100 WBC Normal [facility] Comment on above: Order Comment: Speci men Type: BLOOD SPECIMEN Ordering Facility: [facility] Address: [address] [place] [address] Performed By: #### 5 7021-8 #### [facility] CLIA [id number] [address] [address] 6[address]31 Platelet mean volume (Bld) [Entitic vol] 9.6 fL Normal 9.0-12.7 [facility] Comment on above: Order Comment: Speci men Type: BLOOD SPECIMEN Ordering Facility: [facility] Address: [address] [place] [address] Performed By: #### 5 7021-8 #### [facility] CLIA [id number] [address] [address] 42790 Platelets (Bld) [#/Vol] 151 10*3/uL Normal 150-400 [facility] Comment on above: Order Comment: Speci men Type: BLOOD SPECIMEN Ordering Facility: [facility] Address: [address] [place] [address] Performed By: #### 5 7021-8 #### [facility] CLIA [id number] [address] [address] 23367 RBC (Bld) [#/Vol] 3.37 10*6/uL Low 4.20-6.00 [facility] Comment on above: Order Comment: Speci men Type: BLOOD SPECIMEN Ordering Facility: [facility] Address: [address] [place] [address] Performed By: #### 5 7021-8 #### [facility] CLIA [id number] [address] [address] 52363 WBC (Bld) [#/Vol] 3.65 10*3/uL Low 3.70-11.00 [facility] Comment on above: Order Comment: Speci men Type: BLOOD SPECIMEN Ordering Facility: [facility] Address: [address] [place] [address] Performed By: #### 5 7021-8 #### [facility] CLIA [id number] [address] [place] [address] 29518 IMMUNOFIXATION SCREEN, SERUM on 01-21-2024 INTERPRETATION (MPA) Atypical restricted band is present in the lambda region. Consistent with lambda containing monoclonal gammopathy. IgD and IgE negative by immunofixation. Performed at [facility], [place], [place]. Normal [facility] Comment on above: Order Comment: Speci men Type: BLOOD SPECIMEN Ordering Facility: [facility] Address: [address] [place] [address] Performed By: #### 5 7021-8 #### [facility] CLIA [id number] [address] [address] 94099 MPA RESULT M protein is present. Abnormal No M p rotein is identified. [facility] Comment on above: Order Comment: Speci men Type: BLOOD SPECIMEN Ordering Facility: [facility] Address: [address] [place] [address] Performed By: #### 5 7021-8 #### [facility] CLIA [id number] [address] [address]162 STAFF REVIEW ([facility]) Reviewed by Dr. Rowan Ibarra MD [facility] Comment on above: Order Comment: Speci men Type: BLOOD SPECIMEN Ordering Facility: [facility] Address: [address] [place] [address] Performed By: #### 5 7021-8 #### [facility] CLIA [id number] [address] [address] 58247 IMMUNOGLOBULINS,IGG,IGA,IGMo n 01-21-2024 IgA [Mass/Vol] 110 mg/dL Normal 70-400 [facility] Comment on above: Order Comment: Speci men Type: BLOOD SPECIMEN Ordering Facility: [facility] Address: [address] [place] [address] Performed By: #### S ERIMM #### [facility] CLIA [id number] [address] [place] [address] [place] IgG [Mass/Vol] 1011 mg/dL Normal 700-1600 [facility] Comment on above: Order Comment: Speci men Type: BLOOD SPECIMEN Ordering Facility: [facility] Address: [address] [place] [address] Performed By: #### S ERIMM #### [facility] CLIA [id number] [address] [place] [address] [place] IgM [Mass/Vol] 64 mg/dL Normal 40-230 [facility] Comment on above: Order Comment: Speci men Type: BLOOD SPECIMEN Ordering Facility: [facility] Address: [address] [place] [address] Performed By: #### S ERIMM #### [facility] CLIA [id number] [address] [place] [address] [place] KAPPA/ARDON,FREE,SERon 2023 Immunoglobulin light chains.kappa.free (S) [Mass/Vol] 30.8 mg/L High 3.3-19.4 [facility] Comment on above: Order Comment: Speci men Type: BLOOD SPECIMEN Ordering Facility: [facility] Address: [address] [place] [address] Result Comment: Rare ly, increased serum free light chains levels may not be detected or accurately quantified due to prozone phenomenon or in high viscosity samples using this immunoturbidimetric assay. Correlation with other laboratory results and clinical findings is recommended. The [place] Free Light Chain was performed using the Binding Site Optilite immunoturbidimetric method. Result obtained with different assay methods or kits cannot be used interchangeably. Performed By: #### K LFRS #### [facility] CLIA [id number] [address] [place] [address] [place] [place] Immunoglobulin light chains.kappa/Immunog lobulin light chains.lambda (S) [Mass ratio] 1.77 High 0.26-1.65 [facility] Comment on above: Order Comment: Speci men Type: BLOOD SPECIMEN Ordering Facility: [facility] Address: [address] [place] [address] Performed By: #### K LFRS #### [facility] CLIA [id number] [address] [place] [address] [place] Immunoglobulin light chains.lambda.free [Mass/Vol] 17.4 mg/L Normal 5.7-26.3 [facility] Comment on above: Order Comment: Speci men Type: BLOOD SPECIMEN Ordering Facility: [facility] Address: [address] [place] [address] Result Comment: Rare ly, increased serum free [...] interchangeably. Performed By: #### K LFRS #### [facility] CLIA [id number] [address] [place] [address] [place] PROTEIN ELECTROPHORESIS SERU M WITH CARSON (P)on 01-21-2024 Albumin [Mass/Vol] 3.53 g/dL Normal 3.43-5.41 [facility] Comment on above: Order Comment: Speci men Type: BLOOD SPECIMEN Ordering Facility: [facility] Address: [address] [place] [address] Performed By: #### L [id number] #### [facility] CLIA [id number] [address] [place] [address] [place] Alpha 1 globulin Elph [Mass/Vol] 0.36 g/dL Normal 0.18-0.43 [facility] Comment on above: Order Comment: Speci men Type: BLOOD SPECIMEN Ordering Facility: [facility] Address: [address] [place] [address] Performed By: #### L [id number] #### [facility] CLIA [id number] [address] [place] [address] [place] Alpha 2 globulin Elph [Mass/Vol] 0.73 g/dL Normal 0.42-0.98 [facility] Comment on above: Order Comment: Speci men Type: BLOOD SPECIMEN Ordering Facility: [facility] Address: [address] [place] [address] Performed By: #### L [id number] #### [facility] CLIA [id number] [address] [place] [address] [place] Beta globulin Elph [Mass/Vol] 0.74 g/dL Normal 0.61-1.17 [facility] Comment on above: Order Comment: Speci men Type: BLOOD SPECIMEN Ordering Facility: [facility] Address: [address] [place] [address] Performed By: #### L [id number] #### [facility] CLIA [id number] [address] [place] [address] [place] COMMENT (SERUM PROT ELECTRO) Monoclonal Protein analysis (immunofixation) is not indicated. Normal [facility] Comment on above: Order Comment: Speci men Type: BLOOD SPECIMEN Ordering Facility: [facility] Address: [address] [place] [address] Performed By: #### L [id number] #### [facility] CLIA [id number] [address] [place] [address] [place] Gamma globulin Elph [Mass/Vol] 0.84 g/dL Normal 0.53-1.51 [facility] Comment on above: Order Comment: Speci men Type: BLOOD SPECIMEN Ordering Facility: [facility] Address: [address] [place] [address] Performed By: #### L [id number] #### [facility] CLIA [id number] [address] [place] [address] [place] INTERPRETATION COMMENT FOR PROTEIN ELECTROPHORESIS See separate immunofixation report for characterization of monoclonal gammopathy. Normal [facility] Comment on above: Order Comment: Speci men Type: BLOOD SPECIMEN Ordering Facility: [facility] Address: [address] [place] [address] Performed By: #### L [id number] #### [facility] CLIA [id number] [address] [place] [address] [place] M-PROTEIN LOCATION Gamma Fraction 1 Normal [facility] Comment on above: Order Comment: Speci men Type: BLOOD SPECIMEN Ordering Facility: [facility] Address: [address] [place] [address] Performed By: #### L [id number] #### [facility] CLIA [id number] [address] [place] [address] [place] Protein Fractions [Interp] An M protein is identified on protein electrophoresis. Abnormal No definitive M protein is identified on protein electrophore sis. [facility] Comment on above: Order Comment: Speci men Type: BLOOD SPECIMEN Ordering Facility: [facility] Address: [address] [place] [address] Performed By: #### L [id number] #### [facility] CLIA [id number] [address] [place] [address] [place] Protein.monoclonal Elph [Mass/Vol] 0.10 g/dL High <=0.00 [facility] Comment on above: Order Comment: Speci men Type: BLOOD SPECIMEN Ordering Facility: [facility] Address: [address] [place] [address] Performed By: #### L [id number] #### [facility] CLIA [id number] [address] [place] [address] [place] SPE STAFF REVIEW Reviewed by Fran Boyd MD, Ph.D ([id number]) Normal [facility] Comment on above: Order Comment: Speci men Type: BLOOD SPECIMEN Ordering Facility: [facility] Address: [address] [place] [address] Performed By: #### L [id number] #### [facility] CLIA [id number] [address] [place] [address] [place] PSA SerPl-mCncon 01-21-2024 Prostate specific Ag [Mass/Vol] 0.23 ng/mL Normal <2.60 [facility] Comment on above: Order Comment: Speci men Type: BLOOD SPECIMEN Ordering Facility: [facility] Address: [address] [place] [address] Result Comment: Tota l PSA test methodology used is the Electrochemiluminescence Immunoassay by [employer]. Total PSA values by differing methodologies cannot be interchanged. Performed By: #### 2 [id number] #### [facility] CLIA [id number] [address] [place] [address] [place] Prot SerPl-mCncon 01-21-2024 Protein [Mass/Vol] 6.2 g/dL Low 6.3-8.0 [facility] Comment on above: Order Comment: Speci men Type: BLOOD SPECIMEN Ordering Facility: [facility] Address: [address] [place] [address] Performed By: #### 5 [id number] #### [facility] CLIA [id number] [address] [place] [address] Retail - Clinical Noteon Retail - Clinical Note [id number]#1.00TIFF Normal [facility] Consultation Noteon 01-12-20 Consultation Note [id number]#1.00TIFF Normal [facility] Consultation Noteon 01-06-20 Consultation Note [id number]#1.00TIFF Normal [facility] Retail - Clinical Noteon Retail - Clinical Note [id number]#1.00TIFF Normal [facility] Family Medicine Office/Clini c Noteon 12-01-2023 Family Medicine Office/Clinic Note HPI Staff Chiki is a 78 year old male presenting to discuss Stride right mobility and necessity for a motorized wheelchair questions/concerns: History of Present Illness Patient presents again to discuss a motorized wheelchair. Discussed with the patient that my concern is that he only would qualify for decreased mobility secondary to his oxygen saturations. Patient satting at room air at 92%. Patient states he has oxygen at home but he cannot carry it is too much. Patient does not ambulate with a walker or with a cane. Patient states that his only need for the motorized wheelchair is because of the pulmonary status. Patient's defensive line coach has not written for any mobility devices. I understand the base of the patient's request is to be around his family and feel better. Explained to the patient that weight loss is significant to him feeling better and to be more active. Discussed how having the oxygen will allow him to be able to move and breathe better. But again patient states he is unable to carry 5 pounds at all. Discussed having him use a carrier and wheeling it around and patient states he has done that in the past. Review of Systems PHQ Score Initial Depression Screen Score: 0 SCORE Physical Exam Vitals & Measurements T: 36.5 ?C(Temporal Artery) HR: 84(Peripheral) RR: 20 BP: 116/68 SpO2: 92% HT: 66 in HT: 168 cm WT: 103 kg WT: 226.6 lb BMI: 36.49 General: alert, no acute distress ENMT: oral mucosa moist, Cardiovascular: regular rate and rhythm, normal peripheral perfusion, Very diminished breath sounds. Respiratory: Lungs CTA, respirations non labored Extremities: no deformity, no trauma Neurological: oriented x 4, LOC appropriate for age, CN II-XII intact, motor strength equal & normal bilaterally, speech normal Abdomen: Soft, Nontender, Non-distended, + BS Assessment/Plan 1. Chronic hypoxic respiratory failure (J96.11: Chronic respiratory failure with hypoxia) I again explained to the patient that I do not see how his insurance will pay for a stride right given his hypoxia is the reason for his need for a motorized wheelchair. Patient can reach out to his insurance company to find out more but patient should be using his oxygen. Patient is not using his oxygen today not using a walker or a wheelchair. Patient states that he can go up to 50 yards without having to stop to be short of breath. Encouraged the patient to look for a second opinion if he still believes that he qualifies or have his defensive line coach help get this accomplished. We will see the patient after he sees his defensive line coach at the end of January 2. Compression fracture of thoracic vertebra with routine healing, unspecified thoracic vertebral level, subsequent encounter (S22.000D: Wedge compression fracture of unspecified thoracic vertebra, subsequent encounter for fracture with routine healing) Patient states that he is having issues with holding his oxygen tank secondary to the compression fraction of the thoracic vertebrae. Encouraged the patient to find ways to have his oxygen ready for his use. 3. BMI 36.0-36.9,adult (Z68.36: Body mass index [BMI] 36.0-36.9, adult) BMI education uploaded to the chart. Ordered: Body Mass Index (BMI) documented 3008F Current tobacco non-user 1036F Depression Screening Negative 3352F Influenza immunization administered or previously received 4274F Most recent diastolic blood pressure <80 mm Hg 3078F Patient screen for fall risk: no falls in last year or 1 fall with no injury in last year 1101F Systolic BP <130 mm Hg (Most Recent) 3074F 4. Class 1 obesity due to excess calories in adult (E66.09: Other obesity due to excess calories) Diet and exercise advised. Discussed in detail with the patient that losing weight is the only way that he will feel better substantially. Patient does not believe this is an attainable goal. Ordered: Body Mass Index (BMI) documented 3008F Current tobacco non-user 1036F Depression Screening Negative 3352F Influenza immunization administered or previously received 4274F Most recent diastolic blood pressure <80 mm Hg 3078F Patient screen for fall risk: no falls in last year or 1 fall with no injury in last year 1101F Systolic BP <130 mm Hg (Most Recent) 3074F 5. Former smoker (Z87.891: Personal history of nicotine dependence) Please continue not smoke. Ordered: Body Mass Index (BMI) documented 3008F Current tobacco non-user 1036F Depression Screening Negative 3352F Influenza immunization administered or previously received 4274F Most recent diastolic blood pressure <80 mm Hg 3078F Patient screen for fall risk: no falls in last year or 1 fall with no injury in last year 1101F Systolic BP <130 mm Hg (Most Recent) 3074F Total time spent preparing for the encounter, evaluating and assessing the patient, documenting the visit, and ordering appropriate follow-up work was 40 minutes. Follow-up No qualifying data available Problem List/Past Medical History (more content not included)... Normal [facility] Comment on above: Result Comment: Elec tronically Signed By: Navarro VENTURA, Pito Davidson\.br\Date and Time Signed: 12/01/23 14:50 EDT Family Medicine Office/Clini c Noteon 10-20-2023 Family Medicine Office/Clinic Note HPI Staff Chiki is a 78 year old male presenting for follow up after seeing defensive line coach Had appt @ [facility] w/ defensive line coach and had walking test w/ pulse ox brought results w/ him hoping this helps with getting the power scooter Patient is here for follow up on COPD: Feeling controlled on medication: he's the same as he has been, some days hard to breathe, other days a little better Need medication refilled: yes albuterol Do you use O2? yes 2L uses to sleep and then as needed during the day if he needs it flu: UTD 05/11/23 questions/concerns: Needs his abuterol solution refilled and a rx for a handicapp placard History of Present Illness Chiki Juarez is a 78-year-old male who presents for recheck after seeing defensive line coach. The patient consulted with his defensive line coach at the [facility]. He is awaiting approval from his insurance for a new medication. Additionally, he is having trouble obtaining another medication through [facility], although they are expected to have it available on 10/19/2023, or 10/20/2023. His treatment plan includes azelastine, prednisone, and sodium chloride. He is scheduled for a spirometry test on 11/07/2023. The patient's oxygenation results indicate that he is stable at rest, but his oxygen saturation levels decrease when engaged in physical activity. He requires supplemental oxygen when sleeping, typically 2 liters, which he also uses during the day as needed. Upon assessment, he was advised to evaluate his capabilities in a manual wheelchair, which he finds too physically demanding. His oxygen levels decrease significantly when he attempts to walk or run, necessitating a slowdown to prevent a further drop in oxygenation. His home layout, with the front room converted into a bedroom and the bathroom situated on the opposite side of the house, involves navigating 53 to 54 steps, which sometimes requires him to pause and catch his breath before continuing. At other times, he manages to walk without difficulty. His window shade estimator, Dr. Easton, has concluded that his symptoms are not indicative of cardiac issues but rather related to his respiratory system. Blood work was not conducted during his last visit to [place], and he has an appointment with Dr. Easton, later today. Review of Systems PHQ Score Initial Depression Screen Score: 0 SCORE Physical Exam Vitals & Measurements T: 36.3 ?C(Temporal Artery) HR: 68(Peripheral) RR: 20 BP: 128/66 SpO2: 98% HT: 66 in HT: 168 cm WT: 101.50 kg WT: 223.3 lb BMI: 35.96 General: alert, no acute distress ENMT: oral mucosa moist, no pharyngeal erythema or exudate Cardiovascular: regular rate and rhythm, normal peripheral perfusion Respiratory: Diminished breath sounds in the anterior lung arredondo, better in the posterior. The patient does have some crackles at the bases of both lungs. 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 His condition is identified as hypoxia, accompanied by symptoms of anxiety. The result of a 6-minute walk test is being scanned into the chart. I advised the patient to utilize oxygen not only during rest but also during any physical activity to manage his condition effectively. 2. Pulmonary hypertension (I27.20: Pulmonary hypertension, unspecified) As per # 1. 3. Macrocytic anemia (D53.9: Nutritional anemia, unspecified) The patient has been diagnosed with MGUS and is currently under the care of Dr. Draper. To monitor the patient's condition and ensure that there is no further deterioration in her anemia, we will conduct a CBC, CMP, and TSH today. 4. Cardiac pacemaker in situ (Z95.0: Presence of cardiac pacemaker) No issues today. 5. Chronic hypoxic respiratory failure (J96.11: Chronic respiratory failure with hypoxia) The patient has been newly diagnosed with this, a condition characterized by a decrease in oxygen levels during physical activity, necessitating the use of 4 liters of supplemental oxygen. We will maintain ongoing surveillance of this condition. 6. Hypothyroid (E03.9: Hypothyroidism, unspecified) I will check the patient's TSH levels today. 7. Decreased ambulation status (Z74.09: Other reduced mobility) The patient is scheduled for a follow-up visit in 1 month, during which we will assess the necessity for a motorized wheelchair. 8. BMI 35.0-35.9,adult (Z68.35: Body mass index [BMI] 35.0-35.9, adult) BMI education has been added to the patient's medical record. 9. Class 1 obesity due to excess calories in adult (E66.09: Other obesity due to excess calories) Recommended dietary modification and physical have been provided. 10. Former smoker (Z87.891: Personal history of nicotine dependence) I encouraged the patient to maintain abstinence fro (more content not included)... Normal [facility] Comment on above: Result Comment: Elec tronically Signed By: Pito Patterson MD\.br\Date and Time Signed: 10/20/23 18:17 EST\.br\Electronically Co-Signed By: Prachi Mesa\.br\Date and Time Co-Signed: 10/19/23 10:11 EST Ambulatory Visit Summaryon 0 10-19-2023 Ambulatory Visit Summary CHIKI JUAREZ :1945 Visit Date:10/19/2023 Ambulatory Visit Instructions Your Diagnosis COPD with asthma Pulmonary hypertension Macrocytic anemia Cardiac pacemaker in situ Chronic hypoxic respiratory failure Hypothyroid Decreased ambulation status BMI 35.0-35.9,adult Class 1 obesity due to excess calories in adult Former smoker Your Care Team Attending Physician - Pito Patterson MD Primary Care Physician - Pito Patterson MD This Is Your Medications List albuterol (albuterol 0.083% Inh Kasie 3 mL) levothyroxine (levothyroxine 100 mcg (0.1 mg) Tab) Contact prescribing physician if questions or concerns Misc Prescription (Electric scooter) Misc Prescription (Nebulizer accessory set) aspirin (aspirin 81 mg Oral EC Tab) budesonide (budesonide 0.5 mg/2 mL Inh Susp) calcium-vitamin D cyanocobalamin (Vitamin B12) furosemide (furosemide 40 mg Tab) gabapentin (gabapentin 300 mg Cap) ipratropium nasal (ipratropium Nasal 0.06% [place]) metoprolol (metoprolol 25 mg ER Tab) potassium chloride (potassium chloride 10 mEq ER Tab) salmeterol (Serevent Diskus 50 mcg inhalation powder) tiotropium (Spiriva 18 mcg Cap) Procedures Performed Cardiac pacemaker (2019), Transrectal biopsy of prostate using ultrasound (US) guidance (03/10/2019), Cystourethroscopy (03/12/2010), Lymphadenectomy of sentinel lymph node (08/17/2006). Discharge Vitals Temperature (Temporal Artery) 36.3 ?C Heart Rate (Peripheral) 68 Respiratory Rate 20 Blood Pressure 128/66 Height 168 cm Height 66 in Weight 101.50 kg Weight 223.3 lb BMI 35.96 What to do next Scheduled Follow-Up Appointments Thursday 1:00 PM EDT With: Pito Patterson MD Where: [facility] Invalid Interpretation Code [address] [id number] \.br \ Thursday 11:00 AM EDT \.br\ With:\.br\ Where: [facility] CBC w/ Auto Diffon 4 Basophils/100 WBC (Bld) 0.4 % Normal 0.0-2.0 [facility] Comment on above: Performed By: #### 1 [id number], [id number], 1102287, [id number] ####[address] [address] Basophils/Leukocytes Auto (Bld) [Pure # fraction] 0.0 E9/L Normal 0.0-0.2 [facility] Comment on above: Performed By: #### 1 [id number], 02291877, 6103983, 5441914 ####[address] [address] Eosinophils (Bld) [#/Vol] 0.0 E9/L Normal 0.0-0.5 [facility] Comment on above: Performed By: #### 1 7251691, 53107844, 4278870, 1645484 ####[address] [address] Eosinophils/100 WBC (Bld) 0.3 % Normal 0.0-8.0 [facility] Comment on above: Performed By: #### 1 3187785, 99971676, 3923218, 7451222 ####[address] [address] Erythrocyte distribution width (RBC) [Ratio] 17.1 % High 10.9-14.2 [facility] Comment on above: Performed By: #### 1 4651738, 93717643, 1195176, 1402543 ####[address] [address] Hematocrit (Bld) [Volume fraction] 37.0 % Low 37.7-49.0 [facility] Comment on above: Performed By: #### 1 8907275, 21121349, 4441678, 7262619 ####[address] [address] Hemoglobin (Bld) [Mass/Vol] 11.8 g/dL Low 13.5-17.5 [facility] Comment on above: Performed By: #### 1 0330880, 49009215, 7388868, 4305854 ####[place] [id number] Lymphocytes (Bld) [#/Vol] 0.8 E9/L Low 1.0-4.0 [facility] Comment on above: Performed By: #### 1 7223297, 97993611, 9116152, 4671189 ####[place] [address] Lymphocytes/100 WBC (Bld) 14.1 % Normal 14.0-50.0 [facility] Comment on above: Performed By: #### 1 7952928, 21320677, 0929764, 1046238 ####[place] [address]457 MCH (RBC) [Entitic mass] 33.6 pg Normal 27.0-34.0 [facility] Comment on above: Performed By: #### 1 7033077, 76554857, 8997937, 2503002 ####[place] [address]457 MCHC (RBC) [Mass/Vol] 32.0 g/dL Normal 31.4-36.0 [facility] Comment on above: Performed By: #### 1 3349418, 74016237, 8971936, 7762010 ####[address] [address] MCV (RBC) [Entitic vol] 105.2 fL High 80.0-100.0 [facility] Comment on above: Performed By: #### 1 5041722, 03423291, 8663054, 0897224 ####[facility] [address] [place] [address] Monocytes (Bld) [#/Vol] 1.9 E9/L High 0.2-1.0 [facility] Comment on above: Performed By: #### 1 7427536, 57828199, 0157560, 3993062 ####[address] [address] Neutrophils (Bld) [#/Vol] 3.3 E9/L Normal 2.0-7.5 [facility] Comment on above: Performed By: #### 1 0912933, 09373165, 3203262, 1289124 ####[address] [address] Neutrophils/100 WBC (Bld) 54.2 % Normal 36.0-75.0 [facility] Comment on above: Performed By: #### 1 5363092, 74040132, 7048020, 6236358 ####[address] [address] Platelet mean volume (Bld) [Entitic vol] 9.5 fL Normal 6.4-10.8 [facility] Comment on above: Performed By: #### 1 5126920, 58283903, 0959461, 6333472 ####[address] [address] Platelets (Bld) [#/Vol] 131.0 E9/L Low 150.0-500.0 [facility] Comment on above: Performed By: #### 1 8628761, 07935860, 5243717, 2458437 ####[address] [address] RBC (Bld) [#/Vol] 3.5 E12/L Low 4.3-5.9 [facility] Comment on above: Performed By: #### 1 8948006, 07930552, 8285095, 8286983 ####[address] [address] WBC corrected for nucl RBC Auto (Bld) [#/Vol] 6.0 E9/L Normal 4.0-11.0 [facility] Comment on above: Performed By: #### 1 1742461, 00751936, 3954008, 3946483 ####[facility] [address] [place] [address] CHEMISTRYOrdered By: SYSTEM SYSTEM on 10-19-2023 Albumin [Mass/Vol] 3.8 g/dL Normal 3.3 - 5.0 gm/dL Rem[facility] Chem Albumin/Globulin [Mass ratio] 1.7 {ratio} Normal 1.1 - 2.2 [facility] ALP [Catalytic activity/Vol] 67 [iU]/d Normal 21 - 98 Int._Unit/L [facility] ALT No additional P-5'-P [Catalytic activity/Vol] 11 [iU]/d Normal 6 - 46 Int._Unit/L [facility] Anion gap [Moles/Vol] 15 mmol/L Normal 6 - 16 mEq/L [facility] AST [Catalytic activity/Vol] 13 [iU]/d Normal 5 - 43 Int._Unit/L [facility] Bilirubin [Mass/Vol] 0.5 mg/dL Normal 0.0 - 1 .1 mg/dL [facility] Calcium [Mass/Vol] 9.3 mg/dL Normal 8.9 - 11. 1 mg/dL [facility] Chloride [Moles/Vol] 103 mmol/L Normal 101 - 1 11 mmol/L [facility] CO2 [Moles/Vol] 26 mmol/L Normal 21 - 31 mmol/L [facility] Creatinine [Mass/Vol] 1.4 mg/dL High 0.5 - 1.3 mg/dL [facility] eGFR 52 mL/min/1.73 m2 Low >=59mL/min /1 .73 m2 [facility] Globulin (S) [Mass/Vol] 2.3 g/dL Normal 1.4 - 4.0 gm/dL [facility] Glucose [Mass/Vol] 136 mg/dL Normal 55 - 199 mg/dL [facility] Potassium [Moles/Vol] 4.2 mmol/L Normal 3.5 - 5.3 mmol/L [facility] Protein [Mass/Vol] 6.1 g/dL Normal 6.0 - 7.8 gm/dL [facility] Sodium [Moles/Vol] 140 mmol/L Normal 135 - 145 mmol/L [facility] TSH Qn 4.77 m[IU]/L Normal 0.34 - 5.60 mcIU/mL [facility] Urea nitrogen [Mass/Vol] 35 mg/dL High 5 - 21 mg/dL [facility] Urea nitrogen/Creatinine [Mass ratio] 25 mg/mg High 10 - 20 [facility] CMPon 10-19-2023 Albumin [Mass/Vol] 3.8 g/dL Normal 3.3-5.0 [facility] Comment on above: Performed By: #### 1 [id number], 84706536, 6085133, 6807048 ####[facility] [address] [place] [address] Albumin/Globulin (S) [Mass conc ratio] 1.7 Normal 1.1-2.2 [facility] Comment on above: Performed By: #### 1 8433075, 85236902, 0249409, 7213473 ####[facility] [address] [place] [address] ALP [Catalytic activity/Vol] 67 Int._Unit/L Normal 21-98 [facility] Comment on above: Performed By: #### 1 4291091, 76136072, 1122984, 5289725 ####[facility] [address] [place] [address] ALT No additional P-5'-P [Catalytic activity/Vol] 11 Int._Unit/L Normal 6-46 [facility] Comment on above: Performed By: #### 1 8576358, 71294014, 7550305, 9295014 ####[facility] [address] [place] [address] Anion gap [Moles/Vol] 15 mmol/L Normal 6-16 [facility] Comment on above: Performed By: #### 1 3205421, 77249771, 5912361, 1042764 ####[facility] [address] [place] [address] AST [Catalytic activity/Vol] 13 Int._Unit/L Normal 5-43 [facility] Comment on above: Performed By: #### 1 3766115, 16481641, 2877306, 5580473 ####[facility] [address] [place] [address] Bilirubin [Mass/Vol] 0.5 mg/dL Normal 0.0-1.1 [facility] Comment on above: Performed By: #### 1 7915701, 23361019, 4418855, 9968818 ####[facility] [address] [place] [address] Calcium [Mass/Vol] 9.3 mg/dL Normal 8.9-11.1 [facility] Comment on above: Performed By: #### 1 8811097, 79288133, 6365752, 6973098 ####[address] [place] [address] Chloride [Moles/Vol] 103 mmol/L Normal 101-111 [facility] Comment on above: Performed By: #### 1 2767987, 44247176, 1206832, 9154128 ####[address] [place] [address] CO2 [Moles/Vol] 26 mmol/L Normal 21-31 [facility] Comment on above: Performed By: #### 1 6290094, 09254428, 8410579, 7685473 ####[facility] [address] [place] [address] Creatinine [Mass/Vol] 1.4 mg/dL High 0.5-1.3 [facility] Comment on above: Performed By: #### 1 1666564, 16165167, 7397340, 2419738 ####[address] [place] [address] Globulin (S) [Mass/Vol] 2.3 g/dL Normal 1.4-4.0 [facility] Comment on above: Performed By: #### 1 6903430, 96885966, 8579724, 0706823 ####[facility] [address] [place] [address] Glucose [Mass/Vol] 136 mg/dL Normal 55-199 [facility] Comment on above: Performed By: #### 1 1137091, 88906885, 6187715, 5495849 ####[facility] [address] [place] [address] Potassium [Moles/Vol] 4.2 mmol/L Normal 3.5-5.3 [facility] Comment on above: Performed By: #### 1 4863619, 08135785, 2038831, 9594129 ####[address] [address] Protein [Mass/Vol] 6.1 g/dL Normal 6.0-7.8 [facility] Comment on above: Performed By: #### 1 2982283, 07227851, 0801083, 9846738 ####[address] [address] Sodium [Moles/Vol] 140 mmol/L Normal 135-145 [facility] Comment on above: Performed By: #### 1 1303042, 88816908, 4380426, 1162665 ####[address] [address] Urea nitrogen [Mass/Vol] 35 mg/dL High 5-21 [facility] Comment on above: Performed By: #### 1 9063549, 61342169, 1274097, 1078909 ####[address] [place] [address] Urea nitrogen/Creatinine [Mass ratio] 25 No Units High 10-20 [facility] Comment on above: Performed By: #### 1 4370384, 16642346, 7300931, 3328185 ####[address] [address] HEMATOLOGYOrdered By: SYSTEM SYSTEM on 10-19-2023 Basophils/100 WBC (Bld) 0.4 % Normal 0.0 - 2.0 % [facility] Basophils/Leukocytes Auto (Bld) [Pure # fraction] 0.0 E9/L Normal 0.0 - 0.2 E9/L [facility] Eosinophils (Bld) [#/Vol] 0.0 E9/L Normal 0.0 - 0.5 E9/L [facility] Eosinophils/100 WBC (Bld) 0.3 % Normal 0.0 - 8.0 % [facility] Erythrocyte distribution width (RBC) [Ratio] 17.1 % High 10.9 - 14.2 % [facility] Hematocrit (Bld) [Volume fraction] 37.0 % Low 37.7 - 49.0 % [facility] Hemoglobin (Bld) [Mass/Vol] 11.8 g/dL Low 13.5 - 17.5 gm/dL [facility] Lymphocytes (Bld) [#/Vol] 0.8 E9/L Low 1.0 - 4.0 E9/L [facility] Lymphocytes/100 WBC (Bld) 14.1 % Normal 14.0 - 50.0 % [facility] MCH (RBC) [Entitic mass] 33.6 pg Normal 27.0 - 34.0 pg [facility] MCHC (RBC) [Mass/Vol] 32.0 g/dL Normal 31.4 - 36.0 gm/dL [facility] MCV (RBC) [Entitic vol] 105.2 fL High 80.0 - 100.0 fL [facility] Monocytes (Bld) [#/Vol] 1.9 E9/L High 0.2 - 1.0 E9/L [facility] Monocytes/100 WBC (Bld) 31.0 % High 4.0 - 14.0 % [facility] Neutrophils (Bld) [#/Vol] 3.3 E9/L Normal 2.0 - 7.5 E9/L [facility] Neutrophils/100 WBC (Bld) 54.2 % Normal 36.0 - 75.0 % [facility] Platelet mean volume (Bld) [Entitic vol] 9.5 fL Normal 6.4 - 10.8 fL [facility] Platelets (Bld) [#/Vol] 131.0 E9/L Low 150.0 - 500.0 E9/L [facility] RBC (Bld) [#/Vol] 3.5 E12/L Low 4.3 - 5.9 E12/L [facility] WBC corrected for nucl RBC Auto (Bld) [#/Vol] 6.0 E9/L Normal 4.0 - 11.0 E9/L [facility] Office Visiton 10-19-2023 Follow-up visit [id number] Tremaine Juarez 1945 M Date Provider Department Center 10/19/2023 LauraHectorDANIELLA EASTON CARD [facility] Family History Problem Relation Age of Onset Stroke Father Family Status - Relation Status Age at Father Level of Service:92698 ME OFFICE/OUTPATIENT ESTABLISHED LOW MDM 20 MIN Normal [facility] Patient Educationon 10-19-19 Patient Education Nutrition BMI for Adults What [...] numbers. This can be done either in Vincentian (U.S.) or metric measurements. Note that charts and online BMI calculators are available to help you find your BMI quickly and easily without having to do these calculations yourself. To calculate your BMI in Vincentian ([place].S.) measurements: 1. Measure your weight in [...] for Disease Control and Prevention: www.cdc.gov ? [place] Heart Association: www.heart.org ? National Heart, Lung, and Blood Presto: www.nhlbi.nih.gov Summary ? Body mass index (BMI) is a number that is calculated from a person's weight and height. ? BMI may help estimate how much of a person's weight is composed of fat. BMI can help identify those who may be at higher risk for certain medical problems. ? BMI can be measured using Vincentian measurements or metric measurements. ? BMI charts are used to identify whether you are underweight, normal weight, overweight, or obese. This information is not intended to replace advice given to you by your health care provider. Make sure you discuss any questions you have with your health care provider. Document Revised: 04/25/2020 Document Reviewed: 03/02/2020 [employer] Patient Education ? 2022 Yhat. [facility] Patient Logson 10-19-2023 Patient Logs [id number]#1.00TIFF [facility] Pre-Visit Planningon 024 Pre-Visit Planning - From: Nandini Romero To: Pito Patterson MD; Sent: 10/16/2023 12:58:06 EST Subject: Pre-Visit Planning Due Date/Time: 10/16/2023 12:58:00 EST Caller Name: CHIKI JUAREZ; Caller Number: H , Mt Dr. Patterson. During a pre-visit planning chart review, I noted the following documentation in the medical record: ? Glomerular filtration rate (GFR): =55 on 07/23/2023, =46 on 04/22/2022, and=59 on 02/09/2019. Based on your medical judgment, can you please clarify which, if any, of the following conditions are present? I can update the Chronic Problem List with your response if you would like. -Chronic Kidney Disease Stage 3a (GFR 45-59) -Chronic Kidney Disease Stage 3, unspecified (GFR 30-59) -Other (please specify): In responding to this request, please exercise your independent professional judgment. The fact that a question is asked does not imply that any particular answer is desired or expected. If you have any questions, please feel free to contact me at extension [phone]. Thank you! Nandini Romero LPN From: Pito Patterson MD To: Nandini Romero; Sent: 10/19/2023 13:10:52 EST Subject: RE: Pre-Visit Planning Caller Name: CHIKI JUAREZ; Caller Number: Tyler , M -Chronic Kidney Disease Stage 3a (GFR 45-59) Normal [address] [place] [address] Pre-Visit Planning - From: Nandini Romero To: Pito Patterson MD; Sent: 10/16/2023 12:38:28 EST Subject: Pre-Visit Planning Due Date/Time: 10/16/2023 12:38:00 EST Caller Name: CHIKI JUAREZ; Caller Number: Tyler , Romie Mt Dr. Patterson. During a pre-visit planning chart review, I noted the following documentation in the medical record: Current Problem List: COPD with asthma, Pulmonary hypertension, Chronic diastolic heart failure, Decreased ambulation status, Former smoker, JUANA, and Severe obesity. Current Medication List: albuterol, aspirin, budesonide, furosemide, ipratropium nasal, metoprolol, salmeterol, and tiotropium. 10/08/2023 Pulmonology Consult Note (page 1): Based on your medical judgment, can you please clarify which, if any, of the following conditions are present? I can update the Chronic Problem List with your response if you would like. -Chronic respiratory failure with hypoxia -Chronic respiratory failure with hypercapnia -Chronic respiratory failure unspecified -Other (please specify): In responding to this request, please exercise your independent professional judgment. The fact that a question is asked does not imply that any particular answer is desired or expected. If you have any questions, please feel free to contact me at extension [phone]. Thank you! Nandini Romero LPN From: Pito Patterson MD To: Nandini Romero; Sent: 10/19/2023 13:10:24 EST Subject: RE: Pre-Visit Planning Caller Name: CHIKI JUAREZ; Caller Number: H , M I saw this after. Please remind me again at his next visit. I diagnosed with his Chronic Respiratory Failure. Normal [address] [facility] TSH With T4fr Reflexon 10-18 TSH Qn 4.77 m[IU]/L Normal 0.34-5.60 [facility] Comment on above: Performed By: #### 1 8947147, 57749819, 5268442, 0275174 #### [facility] [address] [place] [address] eGFRon 10-19-2023 eGFR 52 mL/min/1.73 m2 Low >=59 [facility] Comment on above: Order Comment: Order added by Discern Expert. Performed By: #### 1 4781567, 53509547, 1409731, 4632689 ####[facility] [address] [place] [address] Consultation Noteon 10-15-19 Consultation Note [id number]#1.00TIFF Normal [facility] Cardiac Catherterization-Taylor gnosticon 09-23-2023 Cardiac Catherterization-Taylor gnostic [id number]#1.00TIFF Normal [facility] HPon 09-17-2023 H&P reviewed. The pa tient was examined and there are no changes to the H&P. Patient is undergoing RHC in setting of elevated RVSP and worsening SOB. [facility] NURSNOTEon 09-17-2023 NURSNOTE RN educated pt on d/ c instructions. RN encouraged pt to voice any questions or concerns. Pt verbalizes no questions or concerns at this time. Pt was wheeled off of unit with all of belongings. [facility] HPon 09-09-2023 [facility] Cardiology - [facility] Subjective Chiki Juarez is a 78 y.o. [...] Substance Use Topics Alcohol use: Never GILDA Alarcon is seen in follow-up. He is a 78-year-old man with prior history of COPD and is currently followed at [facility]. He takes multiple inhalers. In June [...] of breath. He recently was seen at [facility] pulmonary and was recommended to follow-up [...] Skin is w (more content not included)... Normal [facility] Office Visiton 09-09-2023 Follow-up visit [id number] Tremaine Juarez 1945 M Date Provider Department Center 09/09/2023 DANIELLA CARDONA KRISTEN [facility] Family History Problem Relation Age of Onset Stroke Father Family Status - Relation Status Age at Father Level of Service:17232 ME OFFICE/OUTPATIENT ESTABLISHED MOD MDM 30 MIN Normal [facility] Retail - Clinical Noteon Retail - Clinical Note [id number]#1.00TIFF Normal [facility] Ambulatory Visit Summaryon 0 08-24-2023 Ambulatory Visit Summary CHIKI JUAREZ :1945 Visit Date:08/24/2023 Ambulatory Visit Instructions Your Diagnosis Class 1 obesity due to excess calories in adult Former smoker Chronic diastolic heart failure Pulmonary hypertension Severe obesity 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 Primary Care Physician - Pito Patterson MD This Is Your Medications List [facility] Prescription (Nebulizer accessory set) albuterol (albuterol 0.083% Inh Kasie 3 mL) aspirin (aspirin 81 mg Oral EC Tab) budesonide (budesonide 0.5 mg/2 mL Inh Susp) calcium-vitamin D cyanocobalamin (Vitamin B12) furosemide (furosemide 40 mg Tab) ipratropium nasal (ipratropium Nasal 0.06% [place]) levothyroxine (levothyroxine 100 mcg (0.1 mg) Tab) [...] Follow-Up Appointments Thursday 8:00 AM EST With: Navarro VENTURA, Pito Davidson Where: [facility] Invalid Interpretation Code [address] [place] [address]- \.br \ Thursday 11:15 AM EDT \.br\ With: Oni MCKEON MD\.br\ Where: [facility] Family Medicine Office/Clini c Noteon 08-24-2023 Family [...] supplies ref[facility] in [place] will need printed and faxed to [phone] History of Present Illness Chiki Juarez, a [...] 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 He is under the care of Dr. Draper for his MGUS and had a consultation with Dr. Draper [...] Patient is being seen by pulmonary in [place]. We will continue to monitor. We will [...] with voice recognition artificial intelligence software, specifically [employer], [employer] and or [employer]. Substitutions may have occurred due to the inherent limitations of voice recognition and artificial intelligence software. ATTESTATION: Documentation services were performed after patient or guardian consented to allow [employer] to record this visit. JASMINA intranet specialist and provider reviewed before signing. JASMINA: Prachi Mesa. Follow-up No qualifying (more content not included)... [facility] Comment on above: Result Comment: Elec tronically Signed By: Pito Patterson MD\.br\Date and Time Signed: 08/24/23 18:07 EST\.br\Electronically Co-Signed By: Prachi Mesa\.br\Date and Time Co-Signed: 08/24/23 13:25 EST Physician Orderon 08-24-2023 Physician Order [id number]#1.00TIFF [facility] Echocardiographyon Echocardiography [id number]#1.00TIFF [facility] Consultation Noteon 08-05-20 Consultation Note [id number]#1.00TIFF [facility] Consultation Note [id number]#1.00TIFF [facility] Consultation Noteon 08-04-20 Consultation Note [id number]#1.00TIFF Normal [facility] Physician Referralon 023 Physician Referral [id number]#1.00TIFF Normal [facility] Ambulatory Visit Summaryon 1 10-04-2022 Ambulatory Visit Summary CHIKI JUAREZ :1945 Visit Date:08/03/2023 Ambulatory Visit Instructions Your [...] mg Tab) ipratropium nasal (ipratropium Nasal 0.06% [place]) levothyroxine (levothyroxine 100 mcg (0.1 mg) Tab) [...] EST With: Navarro VENTURA, Pito Davidson Where: [facility] Invalid Interpretation Code [address] [place] [address]- \.br \ Thursday 11:15 AM EDT \.br\ With: Oni MCKEON MD\.br\ Where: [facility] Auth for Release of Medical Recordson 08-03-2023 Auth for Release of Medical Records [id number]#1.00TIFF Normal [facility] Family Medicine Office/Clini c Noteon 08-03-2023 [...] not any of his specialists so his defensive line coach can't do it. Will see him in [...] 2 tab(s), Oral, Daily ipratropium Nasal 0.06% [place], 2 spray(s), Nasal, BID, 3 refills levothyroxine [...] Alcohol 1 (more content not included)... Normal [facility] Comment on above: Result Comment: Elec tronically Signed By: Navarro VENTURA, Pito Davidson\.br\Date and Time Signed: 08/03/23 14:02 EST Patient [...] numbers. This can be done either in Vincentian (U.S.) or metric measurements. Note that charts and online BMI calculators are available to help you find your BMI quickly and easily without having to do these calculations yourself. To calculate your BMI in Vincentian (U.S.) measurements: 1. Measure your weight in [...] for Disease Control and Prevention: www.cdc.gov ? [place] Heart Association: www.heart.org ? National Heart, Lung, and Blood Presto: www.nhlbi.nih.gov Summary ? Body mass index (BMI) is a number that is calculated from a person's weight and height. ? BMI may help estimate how much of a person's weight is composed of fat. BMI can help identify those who may be at higher risk for certain medical problems. ? BMI can be measured using Vincentian measurements or metric measurements. ? BMI charts are used to identify whether you are underweight, normal weight, overweight, or obese. This information is not intended to replace advice given to you by your health care provider. Make sure you discuss any questions you have with your health care provider. Document Revised: 04/25/2020 Document Reviewed: 03/02/2020 [employer] Patient Education ? 2022 Yhat. [facility] CNOVSPon 07-30-2023 CNOVSP Visit (SP) Office (H EMASA) -- CHIKI JUAREZ Issa ([id number]) 1945 M Date Time Provider Department 07/30/23 [...] (215 lb (more content not included)... Normal [facility] Office Visiton 07-28-2023 Follow-up visit [id number] Tremaine Juarez 1945 M Date Provider Department Center 07/28/2023 DANIELLA CARDONA KRISTEN [facility] Family History Problem Relation Age of Onset Stroke Father Family Status - Relation Status Age at Father Level of Service:07667 ME OFFICE/OUTPATIENT ESTABLISHED MOD MDM 30-39 MIN Normal [facility] Basic metabolic 2000 panelon 07-23-2023 Anion gap [Moles/Vol] 10 mmol/L Normal 9-18 [facility] Comment on above: Order Comment: Speci men Type: BLOOD SPECIMEN Ordering Facility: [facility] Address: [address] [place] [address] Performed By: #### 2 4321-2 #### [facility] CLIA [id number] [address] [address] Calcium [Mass/Vol] 8.4 mg/dL Low 8.5-10.2 [facility] Comment on above: Order Comment: Speci men Type: BLOOD SPECIMEN Ordering Facility: [facility] Address: [address] [place] [address] Performed By: #### 2 4321-2 #### [facility] CLIA [id number] [address] [address] Chloride [Moles/Vol] 103 mmol/L Normal 97-105 [facility] Comment on above: Order Comment: Speci men Type: BLOOD SPECIMEN Ordering Facility: [facility] Address: [address] [place] [address] Performed By: #### 2 4321-2 #### [facility] CLIA [id number] [address] [address] CO2 [Moles/Vol] 24 mmol/L Normal 22-30 [facility] Comment on above: Order Comment: Speci men Type: BLOOD SPECIMEN Ordering Facility: [facility] Address: [address] [place] [address] Performed By: #### 2 4321-2 #### [facility] CLIA [id number] [address] [address] Creatinine [Mass/Vol] 1.33 mg/dL High 0.73-1.22 [facility] Comment on above: Order Comment: Liliya men Type: BLOOD SPECIMEN Ordering Facility: [facility] Address: [address] [place] [address] Performed By: #### 2 4321-2 #### [facility] CLIA [id number] [address] [address] Creatinine and Glomerular filtration rate.predicted panel (S/P/Bld) 55 mL/min/1.73m??? Low >=60 [facility] Comment on above: Order Comment: Liliya jomar Type: BLOOD SPECIMEN Ordering Facility: [facility] Address: [address] [place] [address] Result Comment: Ary mated Glomerular Filtration Rate [...] GFR. Performed By: #### 2 4321-2 #### [facility] CLIA [id number] [address] [address] Glucose [Mass/Vol] 156 mg/dL High 74-99 [facility] Comment on above: Order Comment: Liliya jomar Type: BLOOD SPECIMEN Ordering Facility: [facility] Address: [address] [place] [address] Result Comment: The [place] Diabetes Association (ADA) provides guidance for cutoff [...] Standards of Medical Care in Diabetes 2016, [place] Diabetes Association. Diabetes Care. 2016.39(Suppl 1). Performed By: #### 2 4321-2 #### [facility] CLIA [id number] [address] [address] Potassium [Moles/Vol] 3.7 mmol/L Normal 3.7-5.1 [facility] Comment on above: Order Comment: Speci men Type: BLOOD SPECIMEN Ordering Facility: [facility] Address: [address] [place] [address] Performed By: #### 2 4321-2 #### [facility] CLIA [id number] [address] [address] Sodium [Moles/Vol] 137 mmol/L Normal 136-144 [facility] Comment on above: Order Comment: Speci men Type: BLOOD SPECIMEN Ordering Facility: [facility] Address: [address] [place] [address] Performed By: #### 2 4321-2 #### [facility] CLIA [id number] [address] [address] Urea nitrogen [Mass/Vol] 17 mg/dL Normal 9-24 [facility] Comment on above: Order Comment: Speci men Type: BLOOD SPECIMEN Ordering Facility: [facility] Address: [address] [place] [address] Performed By: #### 2 4321-2 #### [facility] CLIA [id number] [address] [address] CBC W Auto Differential pane l (Bld)on 07-23-2023 Anisocytosis Ql (Bld) Present Normal [facility] Comment on above: Order Comment: Speci men Type: BLOOD SPECIMEN Ordering Facility: [facility] Address: [address] [place] [address] Performed By: #### 5 7021-8 #### [facility] CLIA [id number] [address] [address] Basophils (Bld) [#/Vol] 0.00 10*3/uL Normal <0.11 [facility] Comment on above: Order Comment: Speci men Type: BLOOD SPECIMEN Ordering Facility: [facility] Address: [address] [place] [address] Performed By: #### 5 7021-8 #### [facility] CLIA [id number] [address] [address] Basophils/100 WBC (Bld) 0.0 % Normal [facility] Comment on above: Order Comment: Speci men Type: BLOOD SPECIMEN Ordering Facility: [facility] Address: [address] [place] [address] Performed By: #### 5 7021-8 #### [facility] CLIA [id number] [address] [address]25 Differential cell count method Nom (Bld) Manual Normal [facility] Comment on above: Order Comment: Speci men Type: BLOOD SPECIMEN Ordering Facility: [facility] Address: [address] [place] [address] Performed By: #### 5 7021-8 #### [facility] CLIA [id number] [address] [address] [address] Eosinophils (Bld) [#/Vol] 0.05 10*3/uL Normal <0.46 [facility] Comment on above: Order Comment: Speci men Type: BLOOD SPECIMEN Ordering Facility: [facility] Address: [address] [place] [address] Performed By: #### 5 7021-8 #### [facility] CLIA [id number] [address] [address] 58038 Eosinophils/100 WBC (Bld) 0.9 % Normal [facility] Comment on above: Order Comment: Speci men Type: BLOOD SPECIMEN Ordering Facility: [facility] Address: [address] [place] [address] Performed By: #### 5 7021-8 #### [facility] CLIA [id number] [address] [address] 82322 Erythrocyte distribution width (RBC) [Ratio] 15.8 % High 11.5-15.0 [facility] Comment on above: Order Comment: Speci men Type: BLOOD SPECIMEN Ordering Facility: [facility] Address: [address] [place] [address] Performed By: #### 5 7021-8 #### [facility] CLIA [id number] [address] [address] 70721 Hematocrit (Bld) [Volume fraction] 31.8 % Low 39.0-51.0 [facility] Comment on above: Order Comment: Speci men Type: BLOOD SPECIMEN Ordering Facility: [facility] Address: [address] [place] [address] Performed By: #### 5 7021-8 #### [facility] CLIA [id number] [address] [address] 59362 Hemoglobin (Bld) [Mass/Vol] 10.0 g/dL Low 13.0-17.0 [facility] Comment on above: Order Comment: Speci men Type: BLOOD SPECIMEN Ordering Facility: [facility] Address: [address] [place] [address] Performed By: #### 5 7021-8 #### [facility] CLIA [id number] [address] [place] [address] 32495 Lymphocytes (Bld) [#/Vol] 1.26 10*3/uL Normal 1.00-4.00 [facility] Comment on above: Order Comment: Speci men Type: BLOOD SPECIMEN Ordering Facility: [facility] Address: [address] [place] [address] Performed By: #### 5 7021-8 #### [facility] CLIA [id number] [address] [address] 23391 Lymphocytes/100 WBC (Bld) 21.9 % Normal [facility] Comment on above: Order Comment: Speci men Type: BLOOD SPECIMEN Ordering Facility: [facility] Address: [address] [place] [address] Performed By: #### 5 7021-8 #### [facility] CLIA [id number] [address] [address] 49587 MCH (RBC) [Entitic mass] 33.0 pg Normal 26.0-34.0 [facility] Comment on above: Order Comment: Speci men Type: BLOOD SPECIMEN Ordering Facility: [facility] Address: [address] [place] [address]41 Performed By: #### 5 7021-8 #### [facility] CLIA [id number] [address] [address] 67755 MCHC (RBC) [Mass/Vol] 31.4 g/dL Normal 30.5-36.0 [facility] Comment on above: Order Comment: Speci men Type: BLOOD SPECIMEN Ordering Facility: [facility] Address: [address] [place] [address] 60568 Performed By: #### 5 7021-8 #### [facility] CLIA [id number] [address] [address] 48769 MCV (RBC) [Entitic vol] 105.0 fL High 80.0-100.0 [facility] Comment on above: Order Comment: Speci men Type: BLOOD SPECIMEN Ordering Facility: [facility] Address: [address] [place] [address] Performed By: #### 5 7021-8 #### [facility] CLIA [id number] [address] [address] 66741 Metamyelocytes/100 WBC (Bld) 0.9 % Normal [facility] Comment on above: Order Comment: Speci men Type: BLOOD SPECIMEN Ordering Facility: [facility] Address: [address] [place] [address] 89246 Performed By: #### 5 7021-8 #### [facility] CLIA [id number] [address] [address] 93419 Monocytes (Bld) [#/Vol] 2.08 10*3/uL High <0.87 [facility] Comment on above: Order Comment: Speci men Type: BLOOD SPECIMEN Ordering Facility: [facility] Address: [address] [place] [address] Performed By: #### 5 7021-8 #### [facility] CLIA [id number] [address] [address] 96699 Monocytes/100 WBC (Bld) 36.0 % Normal [facility] Comment on above: Order Comment: Speci men Type: BLOOD SPECIMEN Ordering Facility: [facility] Address: [address] [place] [address] Performed By: #### 5 7021-8 #### [facility] CLIA [id number] [address] [address] 28911 MYELO% 0.9 % Normal [facility] Comment on above: Order Comment: Speci men Type: BLOOD SPECIMEN Ordering Facility: [facility] Address: [address] [place] [address] Performed By: #### 5 7021-8 #### [facility] CLIA [id number] [address] [address] 77784 Neutrophils (Bld) [#/Vol] 2.27 10*3/uL Normal 1.45-7.50 [facility] Comment on above: Order Comment: Speci men Type: BLOOD SPECIMEN Ordering Facility: [facility] Address: [address] [place], [place] [address] Performed By: #### 5 7021-8 #### [facility] CLIA [id number] [address] [address] 04999 Neutrophils/100 WBC (Bld) 39.4 % Normal [facility] Comment on above: Order Comment: Speci men Type: BLOOD SPECIMEN Ordering Facility: [facility] Address: [address] [place] [address] Performed By: #### 5 7021-8 #### [facility] CLIA [id number] [address] [place] [address] Nucleated RBC (Bld) [#/Vol] 10*3/uL Normal <0.01 [facility] Comment on above: Order Comment: Speci men Type: BLOOD SPECIMEN Ordering Facility: [facility] Address: [address] [place] [address] Performed By: #### 5 7021-8 #### [facility] CLIA [id number] [address] [place] [address] Nucleated RBC/100 WBC (Bld) [Ratio] 0.0 /100 WBC Normal [facility] Comment on above: Order Comment: Speci men Type: BLOOD SPECIMEN Ordering Facility: [facility] Address: [address] [place] [address] Performed By: #### 5 7021-8 #### [facility] CLIA [id number] [address] [address] 54684 Ovalocytes LM Ql (Bld) Few Normal [facility] Comment on above: Order Comment: Speci men Type: BLOOD SPECIMEN Ordering Facility: [facility] Address: [address] [place] [address] Performed By: #### 5 7021-8 #### [facility] CLIA [id number] [address] [address] 01693 Platelet mean volume (Bld) [Entitic vol] 10.1 fL Normal 9.0-12.7 [facility] Comment on above: Order Comment: Speci men Type: BLOOD SPECIMEN Ordering Facility: [facility] Address: [address] [place] [address] Performed By: #### 5 7021-8 #### [facility] CLIA [id number] [address] [address] 26628 Platelets (Bld) [#/Vol] 179 10*3/uL Normal 150-400 [facility] Comment on above: Order Comment: Speci men Type: BLOOD SPECIMEN Ordering Facility: [facility] Address: [address] [place] [address] Performed By: #### 5 7021-8 #### [facility] CLIA [id number] [address] [place] [address] Platelets Estimate (Bld) [#/Vol] Adequate Normal [facility] Comment on above: Order Comment: Speci men Type: BLOOD SPECIMEN Ordering Facility: [facility] Address: [address] [place] [address] Performed By: #### 5 7021-8 #### [facility] CLIA [id number] [address] [address] 45426 Polychromasia LM Ql (Bld) Slight Normal [facility] Comment on above: Order Comment: Speci men Type: BLOOD SPECIMEN Ordering Facility: [facility] Address: [address] [place] [address] Performed By: #### 5 7021-8 #### [facility] CLIA [id number] [address] [address] 41094 RBC (Bld) [#/Vol] 3.03 10*6/uL Low 4.20-6.00 [facility] Comment on above: Order Comment: Speci men Type: BLOOD SPECIMEN Ordering Facility: [facility] Address: [address] [place] [address] Performed By: #### 5 7021-8 #### [facility] CLIA [id number] [address] [address] 62708 RED CELL MORPH Reviewed: see result s of individual morphologies Normal [facility] Comment on above: Order Comment: Speci men Type: BLOOD SPECIMEN Ordering Facility: [facility] Address: [address] [place] [address] Performed By: #### 5 7021-8 #### [facility] CLIA [id number] [address] [address] 45075 WBC (Bld) [#/Vol] 5.77 10*3/uL Normal 3.70-11.00 [facility] Comment on above: Order Comment: Speci men Type: BLOOD SPECIMEN Ordering Facility: [facility] Address: [address] [place], [place] [address] Performed By: #### 5 7021-8 #### [facility] CLIA [id number] [address] [address] 60142 WBC Left Shift Ql (Bld) Present Normal [facility] Comment on above: Order Comment: Speci men Type: BLOOD SPECIMEN Ordering Facility: [facility] Address: [address] [place] [address] Performed By: #### 5 7021-8 #### [facility] CLIA [id number] [address] [address] 50110 IMMUNOFIXATION SCREEN, SERUM on 07-23-2023 INTERPRETATION (MPA) Atypical restricted bands are present in the IgG and lambda regions. Consistent with IgG lambda monoclonal gammopathy. Normal [facility] Comment on above: Order Comment: Speci men Type: BLOOD SPECIMEN Ordering Facility: [facility] Address: [address] [place] [address] Performed By: #### 5 7021-8 #### [facility] CLIA [id number] [address] [address] 00002 MPA RESULT M protein is present. Abnormal No M p rotein is identified. [facility] Comment on above: Order Comment: Speci men Type: BLOOD SPECIMEN Ordering Facility: [facility] Address: [address] [place] [address] Performed By: #### 5 7021-8 #### [facility] CLIA [id number] [address] [address] 37751 STAFF REVIEW (MPA) Reviewed by Fran Boyd MD, Ph.D ([id number]) Normal [facility] Comment on above: Order Comment: Speci men Type: BLOOD SPECIMEN Ordering Facility: [facility] Address: [address] [place], [place] [address] Performed By: #### 5 7021-8 #### [facility] CLIA [id number] [address] [place] [address] IMMUNOGLOBULINS GAMon 2022 IgA [Mass/Vol] 72 mg/dL Normal 70-400 [facility] Comment on above: Order Comment: Speci men Type: BLOOD SPECIMEN Ordering Facility: [facility] Address: [address] [place] [id number] Performed By: #### 5 7021-8 #### [facility] CLIA [id number] [address] [place] [address] IgG [Mass/Vol] 777 mg/dL Normal 700-1600 [facility] Comment on above: Order Comment: Speci men Type: BLOOD SPECIMEN Ordering Facility: [facility] Address: [address] [place] [address] Performed By: #### 5 7021-8 #### [facility] CLIA [id number] [address] [place] [address] IgM [Mass/Vol] 64 mg/dL Normal 40-230 [facility] Comment on above: Order Comment: Speci men Type: BLOOD SPECIMEN Ordering Facility: [facility] Address: [address] [place] [address] Performed By: #### 5 7021-8 #### [facility] CLIA [id number] [address] [place] [address] KAPPA/ARDON,FREE,SERon 2022 Immunoglobulin light chains.kappa.free (S) [Mass/Vol] 29.6 mg/L High 3.3-19.4 [facility] Comment on above: Order Comment: Speci men Type: BLOOD SPECIMEN Ordering Facility: [facility] Address: [address] [place] [id number] Result Comment: Rare ly, increased serum free light chains levels may not be detected or accurately quantified due to prozone phenomenon or in high viscosity samples using this immunoturbidimetric assay. Correlation with other laboratory results and clinical findings is recommended. The [place] Free Light Chain was performed using the Binding Site Optilite immunoturbidimetric method. Result obtained with different assay methods or kits cannot be used interchangeably. Performed By: #### K LFRS #### [facility] CLIA [id number] [address] [place] [address] [place] Immunoglobulin light chains.kappa/Immunog lobulin light chains.lambda (S) [Mass ratio] 1.86 High 0.26-1.65 [facility] Comment on above: Order Comment: Speci men Type: BLOOD SPECIMEN Ordering Facility: [facility] Address: [address] [place] [address] Performed By: #### K LFRS #### [facility] CLIA [id number] [address] [place] [address] [place] Immunoglobulin light chains.lambda.free [Mass/Vol] 15.9 mg/L Normal 5.7-26.3 [facility] Comment on above: Order Comment: Speci men Type: BLOOD SPECIMEN Ordering Facility: [facility] Address: [address] [place] [address] Result Comment: Rare ly, increased serum free [...] interchangeably. Performed By: #### K LFRS #### [facility] CLIA [id number] [address] [place] [address] [place] PROTEIN ELECTROPHORESIS SERU M WITH CARSON (P)on 07-23-2023 Albumin [Mass/Vol] 2.67 g/dL Low 3.43-5.41 [facility] Comment on above: Order Comment: Speci men Type: BLOOD SPECIMEN Ordering Facility: [facility] Address: [address] [place] [address] Performed By: #### L [id number] #### [facility] CLIA [id number] [address] [place] [address] [place] Alpha 1 globulin Elph [Mass/Vol] 0.54 g/dL High 0.18-0.43 [facility] Comment on above: Order Comment: Speci men Type: BLOOD SPECIMEN Ordering Facility: [facility] Address: [address] [place] [address] Performed By: #### L [id number] #### [facility] CLIA [id number] [address] [place] [address] [place] Alpha 2 globulin Elph [Mass/Vol] 0.94 g/dL Normal 0.42-0.98 [facility] Comment on above: Order Comment: Speci men Type: BLOOD SPECIMEN Ordering Facility: [facility] Address: [address] [place] [address] Performed By: #### L [id number] #### [facility] CLIA [id number] [address] [place] [address] [place] Beta globulin Elph [Mass/Vol] 0.65 g/dL Normal 0.61-1.17 [facility] Comment on above: Order Comment: Speci men Type: BLOOD SPECIMEN Ordering Facility: [facility] Address: [address] [place] [address] Performed By: #### L [id number] #### [facility] CLIA [id number] [address] [place] [address] [place] COMMENT (SERUM PROT ELECTRO) Monoclonal Protein analysis (immunofixation) is not indicated. Normal [facility] Comment on above: Order Comment: Speci men Type: BLOOD SPECIMEN Ordering Facility: [facility] Address: [address] [place] [address] Performed By: #### L [id number] #### [facility] CLIA [id number] [address] [place] [address] [place] Gamma globulin Elph [Mass/Vol] 0.71 g/dL Normal 0.53-1.51 [facility] Comment on above: Order Comment: Speci men Type: BLOOD SPECIMEN Ordering Facility: [facility] Address: [address] [place] [address] Performed By: #### L [id number] #### [facility] CLIA [id number] [facility] [place] [address] [place] INTERPRETATION COMMENT FOR PROTEIN ELECTROPHORESIS See separate immunofixation report for characterization of monoclonal gammopathy. Normal [facility] Comment on above: Order Comment: Speci men Type: BLOOD SPECIMEN Ordering Facility: [facility] Address: [address] [place] [address] Performed By: #### L [id number] #### [facility] CLIA [id number] [address] [place] [address] [place] M-PROTEIN LOCATION Beta Fraction [facility] on above: Order Comment: Speci men Type: BLOOD SPECIMEN Ordering Facility: [facility] Address: [address] [place] [address] Performed By: #### L [id number] #### [facility] CLIA [id number] [address] [place] [address] [place] Protein Fractions [Interp] An M protein is identified on protein electrophoresis. Abnormal No definitive M protein is identified on protein electrophore sis. [facility] Comment on above: Order Comment: Speci men Type: BLOOD SPECIMEN Ordering Facility: [facility] Address: [address] [place] [address] Performed By: #### L [id number] #### [facility] CLIA [id number] [address] [place] [address] [place] Protein.monoclonal Elph [Mass/Vol] 0.20 g/dL High <=0.00 [facility] Comment on above: Order Comment: Speci men Type: BLOOD SPECIMEN Ordering Facility: [facility] Address: [address] [place] [address] Performed By: #### L [id number] #### [facility] CLIA [id number] [address] [place] [address] [place] SPE STAFF REVIEW Reviewed by Fran Boyd MD, Ph.D ([id number]) Normal [facility] Comment on above: Order Comment: Speci men Type: BLOOD SPECIMEN Ordering Facility: [facility] Address: [address] [place] [address] Performed By: #### L [id number] #### [facility] CLIA [id number] [address] [facility] [place] [address] [place] Prot SerPl-mCncon 07-23-2023 Protein [Mass/Vol] 5.5 g/dL Low 6.3-8.0 [facility] Comment on above: Order Comment: Speci men Type: BLOOD SPECIMEN Ordering Facility: [facility] Address: [address] [place] [address] Performed By: #### 2 885-2 #### [facility] CLIA [id number] [address] [place] [address] [place] Immunization Recordson 07-06 Immunization Records [id number]#1.00TIFF Normal [facility] RAD - CT Reporton 06-18-[address] RAD - CT Report [id number]#1.00TIFF Normal [facility] Ambulatory Visit Summaryon 1 Ambulatory Visit Summary CHIKI JUAREZ :1945 Visit Date:05/28/2023 Ambulatory Visit Instructions Your Diagnosis Severe obesity Chronic diastolic heart failure Pulmonary hypertension BMI 35.0-35.9,adult Class 1 obesity due to excess calories in adult Your Care Team Attending Physician - Pito Patterson MD Primary Care Physician - Pito Patterson MD This Is Your Medications List [facility] [place] Prescription (Nebulizer accessory set) albuterol (albuterol 0.083% Inh Kasie 3 mL) albuterol (albuterol 0.083% Inh Kasie 3 mL) amoxicillin (amoxicillin 500 mg Cap) aspirin (aspirin 81 mg Oral EC Tab) budesonide (budesonide 0.5 mg/2 mL Inh Susp) calcium-vitamin D cyanocobalamin (Vitamin B12) furosemide (furosemide 40 mg Tab) gabapentin (gabapentin 300 mg Cap) ipratropium nasal (ipratropium Nasal 0.06% [place]) levothyroxine (levothyroxine 100 mcg (0.1 mg) Tab) [...] PM EST With: Pito Patterson MD Where: [facility] Invalid Interpretation Code [address] [place] [address]- \.br \ Thursday 11:15 AM EDT \.br\ With: Oni MCKEON MD\.br\ Where: [facility] Ambulatory Visit Summary CHIKI JUAREZ :1945 Visit Date:05/28/2023 Ambulatory Visit Instructions Your Diagnosis Severe obesity Chronic diastolic heart failure Pulmonary hypertension BMI 35.0-35.9,adult Class 1 obesity due to excess calories in adult Your Care Team Attending Physician - Pito Patterson MD Primary Care Physician - Pito Patterson MD This Is Your Medications List [facility] [place] Prescription (Nebulizer accessory set) albuterol (albuterol 0.083% Inh Kasie 3 mL) albuterol (albuterol 0.083% Inh Kasie 3 mL) amoxicillin (amoxicillin 500 mg Cap) aspirin (aspirin 81 mg Oral EC Tab) budesonide (budesonide 0.5 mg/2 mL Inh Susp) calcium-vitamin D cyanocobalamin (Vitamin B12) furosemide (furosemide 40 mg Tab) gabapentin (gabapentin 300 mg Cap) ipratropium nasal (ipratropium Nasal 0.06% [place]) levothyroxine (levothyroxine 100 mcg (0.1 mg) Tab) [...] EST With: Navarro VENTURA, Pito Davidson Where: [facility] Invalid Interpretation Code [address] [place] [address]- \.br \ Thursday 11:15 AM EDT \.br\ With: Oni MCKEON MD\.br\ Where: [facility] Medicine Office/Clini c Noteon 05-28-2023 Family Medicine Office/Clinic Note HPI Staff Chiki is a 78 year old male presenting to discuss getting a motorized wheelchair or scooter Says he cannot breathe to walk, can't go to football games and has grandchildren in sports or the fair or shopping, if the stores have motorized carts he's okay 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 Normal [facility] Comment on above: Result Comment: Elec [...] numbers. This can be done either in [place]ian ([place] or metric measurements. Note that charts and online BMI calculators are available to help you find your BMI quickly and easily without having to do these calculations yourself. To calculate your BMI in [place]ian [place] measurements: 1. Measure your weight in [...] for Disease Control and Prevention: www.cdc.gov ? [place] Heart Association: www.heart.org ? National Heart, Lung, and Blood Presto: www.nhlbi.nih.gov Summary ? Body mass index (BMI) is a number that is calculated from a person's weight and height. ? BMI may help estimate how much of a person's weight is composed of fat. BMI can help identify those who may be at higher risk for certain medical problems. ? BMI can be measured using Vincentian measurements or metric measurements. ? BMI charts are used to identify whether you are underweight, normal weight, overweight, or obese. This information is not intended to replace advice given to you by your health care provider. Make sure you discuss any questions you have with your health care provider. Document Revised: 04/25/2020 Document Reviewed: 03/02/2020 [employer] Patient Education ? 2022 [place]. [facility] Consultation Noteon 05-25-20 23 Consultation Note [id number]#[id number] [facility] Office Visiton 05-21-2023 Follow-up visit [id number] Tremaine Juarez 1945 M Date Provider Department Center 05/21/2023 Osmel-ANASTASIA SINHA [facility] Family History Problem Relation Age of Onset Stroke Father Family Status - Relation Status Age at Father Level of Service:02945 ME OFFICE/OUTPATIENT ESTABLISHED LOW MDM 20-29 MIN Reason for Visit and Comments: Congestive Heart Failure [127] NSVT [Other] - AV block s/p PPM [Other] Normal [facility] Auth for Release of Medical Recordson 05-12-2023 Auth for Release of Medical Records [id number]#1.00CD:127 Normal [facility] Consent for Flu Vaccineon Consent for Flu Vaccine [id number]#1.00CD:127 Normal [facility] Ambulatory Visit Summaryon 0 05-11-2023 Ambulatory Visit Summary ALTHEACHIKI HERNANDEZ :1945 Visit Date:05/11/2023 Ambulatory Visit Instructions Your [...] mg Tab) ipratropium nasal (ipratropium Nasal 0.06% [place]) levothyroxine (levothyroxine 100 mcg (0.1 mg) Tab) [...] EST With: Navarro VENTURA, Pito Davidson Where: [facility] Invalid Interpretation Code [address] [place] [address]- \.br \ Thursday 11:15 AM EDT \.br\ With: MIKE VENTURA, Oni Sewell\.br\ Where: [facility] Auth for Release of Medical Recordson 05-11-2023 Auth for Release of Medical Records [id number]#1.00CD:127 Normal [facility] Family Medicine Office/Clini c Noteon 05-11-2023 [...] bedtime), # 90 cap(s), Refills(s) 1, Pharmacy: [id number], 168, cm, 05/11/23 13:29:00 EDT, Height/Length Dosing, [...] bedtime), # 90 cap(s), Refills(s) 1, [id number] 168, cm, 05/11/23 13:29:00 EDT, Height/Length Dosing, 99.5, kg, 05/11/23 13:29:00 EDT, Weight Dosing Orders: amoxicillin, 500 mg = 1 cap(s), Oral, Daily, TAKE 1 CAPSULE BY MOUTH EVERY DAY, # 30 cap(s), Refills(s) 0, [id number] 168, cm, 05/11/23 13:29:00 EDT, Height/Length [...] mL, NEB (more content not included)... Normal [facility] Comment on above: Result Comment: Elec [...] Follow these instructions at home: ? Take hbie-pdy-tviqqxw and prescription medicines only as told by [...] provider. Document Revised: 08/05/2022 Document Reviewed: 08/05/2022 [employer] Patient Education ? 2022 Yhat. Pulmonary Medicine Chronic Obstructive Pulmonary Disease Chronic obstructive pulmonary disease (COPD) is a long-term (chronic) condition that affects the lungs. COPD is a general term that can be used to describe many different lung problems that cause lung inflammation and limit airflow, including chronic bronchitis and emphysema. If you h (more content not included)... Normal [facility] Physician Referralon 023 Physician Referral [id number]#1.00CD:127 [facility] RAD - CT Reporton 04-03-2023 RAD - CT Report [id number]#1.00CD:127 [facility] RAD - CT Report [id number]#1.00CD:127 [facility] Consent for Procedure/Surger yon 03-31-2023 Consent for Procedure/Surgery [id number]#1.00CD:127 [facility] Consent for Treatmenton 03-17 Consent for Treatment [id number]#1.00CD:127 [facility] IntraOperative Documentson 0 03-31-2023 IntraOperative Documents [id number]#1.00CD:127 [facility] Main OR Intraoperative Recor don 03-31-2023 Main OR Intraoperative Record IntraOp Document Type FTURO Summary Primary Physician: Oni MCKEON MD Finalized Date/Time: 03/31/23 11:56:20 Pt. Name: CHIKI JUAREZ/Sex: 1945 Male Med Rec #: [id number] Physician: Oni MCKEON MD Financial #: [id number] Pt. Type: O Room/Bed: / Admit/Disch: 03/31/23 [...] Elena Kemp Role Performed Surgeon - Primary Room Service Bell[place] - Primary Scrub - Primary Time In [...] Verified (If Participants Niki Bradford RN, Applicable) Maria Elena Toney CST Time Out Complete 03/31/23 11:53:00 Allergies Reviewed? Yes Allergies Reviewed Self/Patient With Body Position Supine Prep Area PENIS Prep Agents Betadine Solution Skin. Condition Intact, [place], Warm, and Dry Additional None Specimens Collected [...] By: Niki Bradford RN 03/31/23 11:56 Normal [facility] Main OR Preoperative Recordo n 03-31-2023 Main OR Preoperative Record Holding Area Document Type FTURO Summary Primary Physician: Oin MCKEON MD Finalized Date/Time: 03/31/23 11:20:59 Pt. Name: CHIKI JUAREZ /Sex: 1945 Male Med Rec #: [id number] Physician: Oni MCKEON MD Financial #: [id number] Pt. Type: O Room/Bed: / Admit/Disch: 03/31/23 [...] SHALINI Koo RN, Ruthann 03/31/23 11:20 Normal [facility] Operative Reporton Operative Report Patient: BRENDA [...] home with antibiotic coverage, Follow up arranged. [facility] Comment on above: Result Comment: Elec tronically Signed By: MIKE VENTURA, Oni Cruz.br\Date and Time Signed: 03/31/23 12:00 EDT Outpatient Surgery Discharge Instructionon 03-31-2023 Outpatient Surgery Discharge Instruction [id number]#1.00CD:127 [facility] RAD - MISCon 03-29-2023 RAD - MISC [id number]#1.00CD:127 [facility] RAD - MISCon 03-24-2023 RAD - MISC [id number]#1.00CD:127 [facility] RAD - Ultrasound Reporton RAD - Ultrasound Report [id number]#1.00CD:127 [facility] RAD - Ultrasound Reporton RAD - Ultrasound Report [id number]#1.00CD:127 [facility] RAD - Ultrasound Reporton RAD - Ultrasound Report [id number]#1.00CD:127 [facility] Insurance Correspondenceon 0 2023 Insurance Correspondence [id number]#1.00CD:127 Normal [facility] Urine Cytology ([facility])on 03-12-2023 Urine Cytology Diagnosis Info Invalid Interpretation Code [facility] Comment on above: Result Comment: A:Ur ine,Urine:Voided Interpretation - MicroScopic Description - Adequacy - Gross Description Site ID:A color V. Light Yellow fixative Alcohol Specimen designated Urine received in alcohol preservative and labeled with the patient?s name, consists of 90ml clear v. light yellow fluid. Electronically signed by : on: 03/12/2023 13:24:22 Performed By: #### 1 [id number] ####[facility] [address] [place] [address] Ambulatory Visit Summaryon 0 03-09-2023 Ambulatory Visit Summary CHIKI JUAREZ :1945 Visit Date:03/09/2023 Ambulatory Visit Instructions Your Diagnosis History of prostate cancer BPH with urinary obstruction Weak urine stream Microscopic hematuria Tests Performed Urnls Dip Stick Auto w/o Microscopy POC 00951 US Renal -- Results Pending -- Please [...] mg Cap) ipratropium nasal (ipratropium Nasal 0.06% [place]) levothyroxine (levothyroxine 100 mcg (0.1 mg) Tab) [...] Follow-Up Appointments Thursday 11:00 AM EDT Where: [facility] Patient Educationon 03-09-20 Patient Education Urology Benign Prostatic Hyperplasia Benign [...] Follow these instructions at home: ? Take figf-ehw-tvoxwtt and prescription medicines only as told by [...] the medicine (more content not included)... Normal [facility] Urine Cytology ([facility])on 03-09-2023 Method of Extraction Voided Normal [facility] Comment on above: Performed By: #### 1 [id number] ####[facility] [address] [place] [address] Number of Jars 1 Invalid Interpretation Code [facility] Comment on above: Performed By: #### 1 [id number] ####[facility] [address] [place] [address] Specimen Urine Normal [facility] Comment on above: Performed By: #### 1 [id number] ####[facility] [address] [place] [address] Type of Service Technical Only Normal [facility] Comment on above: Performed By: #### 1 [id number] ####[facility] [address] [facility] [address] Urology Office/Clinic Noteon 03-09-2023 Urology Office/Clinic Note [...] prostate) S/p EBRT 06/2019. Pt had a Aquiles of 4+3=7. Pt had radiation therapy through [facility]. Most recent PSA done 01/26/23 is 0.3, previously 09/23/21 was 0.47. Pt no longer needs to see Dr. oSusa with [facility]. Pt to follow up yearly [...] When Contact Information MIKE VENTURA, Oni Sewell, PENDING SALE TO [facility] [address], [place] [address] [phone] Additional Instructions: schedule cysto and renal US 1 yr w/ PSA Patient Education Benign Prostatic Hyperplasia Nettie Murphy, personally scribed for Dr. Mckeon on 03/09/2023 12:06:57. . Documentation recorded by the scribeNettie, accurately reflects the services(s) I performed and [...] NEB, q4hr, (more content not included)... Normal [facility] Comment on above: Result Comment: Elec tronically Signed By: Oni MCKEON MD\.br\Date and Time Signed: 03/09/23 12:08 EDT\.br\Electronically Co-Signed By: Nettie Wolff\.br\Date and Time Co-Signed: 03/09/23 12:07 EDT CHEMISTRYOrdered By: SYSTEM SYSTEM on 01-26-2023 25-hydroxyvitamin [...] ratio] 13 mg/mg Normal 10 - 20 [facility] Remisol HEMATOLOGYOrdered By: SYSTEM SYSTEM on 01-26-2023 Basophils/100 [...] 3.3 E12/L Low 4.3 - 5.9 E12/L [facility] HemeAutoSS WBC corrected for nucl RBC Auto (Bld) [#/Vol] 3.9 E9/L Low 4.0 - 11.0 E9/L [facility] HemeAutoSS Comment on above: Result Comment: Casandra del toro reviewed by ts . Office Visiton 11-28-2022 Follow-up visit [id number] Tremaine Juarez 1945 M Date Provider Department Center 11/28/2022 ANASTASIA LOVE [facility] Family History Problem Relation Age of Onset Stroke Father Family Status - Relation Status Age at Father Level of Service:44762 ME OFFICE/OUTPATIENT ESTABLISHED LOW MDM 20-29 MIN Reason for Visit and Comments: Hyperlipidemia [182] Shortness of Breath [] Normal [facility] PROF CHEM 8 (BAS METB)on Anion gap [Moles/Vol] 14.0 mmol/L Normal [facility] Comment on above: Performed By: #### B MP ####[facility] [address] [address]Dr. Trevor Nichols Calcium [Mass/Vol] 8.8 mg/dL Normal 8.5-10.1 [facility] Comment on above: Performed By: #### B MP ####[facility] [address] [place], [place] [address]Dr. Trevor Nichols Chloride [Moles/Vol] 104 mmol/L Normal 98-107 [facility] Comment on above: Performed By: #### B MP ####[facility] [address] [place], [place] [address]Dr. Trevor Nichols CO2 [Moles/Vol] 26.0 mmol/L Normal 21.0-32.0 [facility] Comment on above: Performed By: #### B MP ####[facility] [address] [place], [place] [address]Dr. Trevor Nichols Creatinine [Mass/Vol] 1.49 mg/dL Critically high 0.70-1.30 [facility] Comment on above: Performed By: #### B MP ####[facility] [address] [place], [place] [address]Dr. Trevor Nichols EGFR-AF FIJIAN 56 mL/min/1.73m2 Critically low >=60 [facility] Comment on above: Performed By: #### B MP ####[facility] [address] [place], [place] [address]Dr. Trevor Nichols EGFR-NON AF FIJIAN 46 mL/min/1.73m2 Critically low >=60 [facility] Comment on above: Performed By: #### B MP ####[facility] [address] [place], [place] [address]Dr. Trevor Nichols Glucose [Mass/Vol] 115 mg/dL Critically high 74-106 [facility] Comment on above: Performed By: #### B MP ####[facility] [address] [address]Dr. Trevor Nichols Potassium [Moles/Vol] 4.0 mmol/L Normal 3.5-5.1 [facility] Comment on above: Performed By: #### B MP ####[facility] [address] [address]Dr. Vivifrancie Simone Sodium [Moles/Vol] 140 mmol/L Normal 136-145 [facility] Comment on above: Performed By: #### B MP ####[facility] [address] [place] [address]Dr. Trevor Nichols Urea nitrogen [Mass/Vol] 22.0 mg/dL Critically high 7.0-18.0 [facility] Comment on above: Performed By: #### B MP ####[facility] [address] [place], [place] [address]Dr. Vivifrancie Simone Urea nitrogen/Creatinine [Mass ratio] 14.8 mg/mg Normal [facility] Comment on above: Performed By: #### B MP ####[facility] [address] [place], [place] [address]Dr. Vivifrancie Simone NM STRESS/REST MULTIon 04-16 NM STRESS/REST MULTI Patient: JANNETH JUAREZ Exam Date: 04/16/2022 : 1945 Gender:M Ordering : DR DANIELLA EASTON M.D. Admission #: [id number] Family : DR WILL SHERWOOD . Order #: [id number] CLICK HERE TO VIEW EXAM RADIOLOGY REPORT [...] Beatty MD on 04/16/2022 at 10:23 Normal [facility] ECHOCARDIO M/2D COMPLETEon 0 02-19-2022 ECHOCARDIO M/2D COMPLETE Patient: CHIKI JUAREZ Exam Date: 02/19/2022 : 1945 Gender:M Ordering : NANDINI [employer] Admission #: [id number] Family : DR WILL SHERWOOD . Order #: [id number] CLICK HERE TO VIEW EXAM ECHOCARDIOGRAM REPORT [...] Easton M.D. on 02/19/2022 at 19:53 Normal [facility] LIPID PROFILEon 02-10-2022 CHOL-HDL RATIO NORM SEE BELOW Normal [facility] Comment on above: Result Comment: 3.3 - 4.4 LOW RISK 4.4 - 7.1 AVERAGE RISK 7.1 - 11.0 MODERATE RISK >11.0 HIGH RISK Performed By: #### L IPID #### [facility] [address] [place] [address] Dr. Trevor Nichols Cholesterol [Mass/Vol] 171 mg/dL Normal <=200 [facility] Comment on above: Performed By: #### L IPID #### [facility] [address] [address] [address] Trevor Nichols Cholesterol in HDL [Mass/Vol] 40 mg/dL Normal 40-60 [facility] Comment on above: Performed By: #### L IPID #### [facility] [address] [address] [address] Trevor Nichols Cholesterol in LDL [Mass/Vol] 114.0 mg/dL Normal [facility] Comment on above: Performed By: #### L IPID #### [facility] [address] [address] [address] Trevor Nichols Cholesterol.total/Ch olesterol in HDL [Mass ratio] 4.3 {ratio} Normal [facility] Comment on above: Performed By: #### L IPID #### [facility] [address] [address] [address] Trevor Nichols HDL NORMAL > or = 60 mg/dl - LO W CARDIOVASCULAR RISK <40 mg/dl - HIGH CARDIOVASCULAR RISK Normal [facility] Comment on above: Performed By: #### L IPID #### [facility] [address] [address] [address] Trevor Nichols LDL CALC NORMAL SEE BELOW Normal [facility] Comment on above: Result Comment: <100 mg/dl OPTIMAL 100 - 129 mg/dl NEAR OR ABOVE OPTIMAL 130 - 159 mg/dl BORDERLINE HIGH 160 - 189 mg/dl HIGH >190 mg/dl VERY HIGH Performed By: #### L IPID #### [facility] [address] [address] [address] Trevor Nichols Triglyceride [Mass/Vol] 85 mg/dL Normal <=150 [facility] Comment on above: Performed By: #### L IPID #### [facility] [address] [address] [address] Trevor Nichols VLDL CALC 17.0 mg/dL Normal [facility] Comment on above: Performed By: #### L IPID #### [facility] [address] [address] [address] Trevor Nichols BNPon 02-05-2022 Natriuretic peptide B (Bld) [Mass/Vol] 231.0 pg/mL Normal <=900.0 [facility] Comment on above: Performed By: #### H STROPN, BNP, BMP #### [facility] [address] [place] [address] Dr. Trevor Nichols CBC W MANUAL DIFFon 02-06-20 22 ANISOCYTOSIS 1+ Normal [facility] Comment on above: Performed By: #### C JOBY #### [facility] [address] [place] [address] Dr. Trevor Nichols ATYPICAL LYMPH # Normal [facility] Comment on above: Performed By: #### C BCNADIA #### [facility] [address] [place] [address] Dr. Trevor Nichols ATYPICAL LYMPH % Normal [facility] Comment on above: Performed By: #### C JOBY #### [facility] [address] [place] [address] Dr. Trevor Nichols BAND # 0.3 103/ul Normal 0.0-0.3 [facility] Comment on above: Performed By: #### C JOBY #### [facility] [address] [place] [address] Dr. Trevor Nichols BAND % 6 % Critically high 0-5 [facility] Comment on above: Performed By: #### C JOBY #### [facility] [address] [place] [address] Dr. Trevor Nichols BASOM # 0.00 103/ul Normal 0.00-0.10 [facility] Comment on above: Performed By: #### C JOBY #### [facility] [address] [place] [address] Dr. Trevor Nichols BASOM % 0.0 % Critically low 0.2-2.0 [facility] Comment on above: Performed By: #### C JOYB #### [facility] [address] [place] [address] Dr. Trevor Nichols BLAST # Normal [facility] Comment on above: Performed By: #### C JOBY #### [facility] [address] [place] [address] Dr. Trevor Nichols BLAST % Normal [facility] Comment on above: Performed By: #### C JOBY #### [facility] [address] [place] [address] Dr. Trevor Nichols CORRECTED WBC Normal 4.0-11.0 [facility] Comment on above: Performed By: #### C JOBY #### [facility] [address] [place] [address] Dr. Trevor Nichols EOS # 0.04 103/ul Normal 0.00-0.70 [facility] Comment on above: Performed By: #### C JOBY #### [facility] [address] [place] [address] Dr. Trevor Nichols EOS% 1.0 % Normal 0.9-7.0 [facility] Comment on above: Performed By: #### C JOBY #### [facility] [address] [place] [address] Dr. Trevor Nichols HCT 36.4 % Critically low 42.0-54.0 [facility] Comment on above: Performed By: #### C JOBY #### [facility] [address] [place] [address] Dr. Trevor Nichols HGB 11.4 g/dl Critically low 14.0-18.0 [facility] Comment on above: Performed By: #### C JOBY #### [facility] [address] [place] [address] Dr. Trevor Nichols HYPOCHROMASIA SLIGHT Normal [facility] Comment on above: Performed By: #### C JOBY #### [facility] [address] [place] [address] Dr. Trevor Nichols LYMPHM # 1.19 103/ul Critically low 1.20-3.80 [facility] Comment on above: Performed By: #### C JOBY #### [facility] [address] [place] [address] Dr. Trevor Nichols LYMPHM% 27.0 % Normal 20.5-60.0 [facility] Comment on above: Performed By: #### C JOBY #### [facility] [address] [place] [address] Dr. Trevor Nichols MCH 32.5 pg Normal 25.9-34.0 [facility] Comment on above: Performed By: #### C JOBY #### [facility] [address] [address] [address] Trevor Nichols MCHC 31.3 g/dl Normal 29.9-35.2 [facility] Comment on above: Performed By: #### C JOBY #### [facility] [address] [address] [address] Trevor Nichols MCV 103.7 fL Critically high 80.0-94.0 [facility] Comment on above: Performed By: #### C BCNADIA #### [facility] [address] [place] [address] Dr. Trevor Nichols METAMYELOCYTE # Normal [facility] Comment on above: Performed By: #### C JOBY #### [facility] [address] [place] [address] Dr. Trevor Nichols METAMYELOCYTE % Normal [facility] Comment on above: Performed By: #### C JOBY #### [facility] [address] [place] [address] Dr. Trevor Nichols MONOM# 1.28 103/ul Critically high 0.30-0.80 [facility] Comment on above: Performed By: #### C JOBY #### [facility] [address] [place] [address] Dr. Trevor Nichols MONOM% 29.0 % Critically high 1.7-12.0 [facility] Comment on above: Performed By: #### C JBOY #### [facility] [address] [place] [address] Dr. Trevor Nichols MPV 10.5 fL Normal 9.5-13.5 [facility] Comment on above: Performed By: #### C JOBY #### [facility] [address] [place] [address] Dr. Trevor Nichols MYELOCYTE # Normal [facility] Comment on above: Performed By: #### C JOBY #### [facility] [address] [place] [address] Dr. Trevor Nichols MYELOCYTE % Normal [facility] Comment on above: Performed By: #### C JOBY #### [facility] [address] [address] [address] Trevor Nichols NR Normal [facility] Comment on above: Performed By: #### C JOBY #### [facility] [address] [address] [address] Trevor Nichols PLT 161 103/ul Normal 150-450 [facility] Comment on above: Performed By: #### C JOBY #### [facility] [address] [place] [address] Dr. Trevor Nichols RBC 3.51 106/ul Critically low 4.70-6.10 [facility] Comment on above: Performed By: #### C JOBY #### [facility] [address] [place] [address] Dr. Trevor Nichols RDW 16.0 % Critically high 11.0-15.0 [facility] Comment on above: Performed By: #### Brodie HEMPHILL #### [facility] [address] [place] [address] Dr. Trevor Nichols SEG # 1.63 103/ul Normal 1.40-6.50 [facility] Comment on above: Performed By: #### Brodie HEMPHILL #### [facility] [address] [place] [address] Dr. Trevor Nichols SEG % 37.0 % Critically low 43.0-75.0 [facility] Comment on above: Performed By: #### Brodie HEMPHILL #### [facility] [address] [place] [address] Dr. Trevor Nichols WBC 4.4 103/ul Normal 4.0-11.0 [facility] Comment on above: Performed By: #### Brodie HEMPHILL #### [facility] [address] [place] [address] Dr. Trevor Nichols PROF 14(COMP METB)on 022 Albumin [Mass/Vol] 3.4 g/dL Normal 3.4-5.0 [facility] Comment on above: Performed By: #### H STROPN, BNP, BMP #### [facility] [address] [address] [address] Trevor Nichols Albumin/Globulin [Mass ratio] 0.9 {ratio} Normal [facility] Comment on above: Performed By: #### H STROPN, BNP, BMP #### [facility] [address] [address] [address] Trevor Nichols ALP [Catalytic activity/Vol] 99 U/L Normal 46-116 [facility] Comment on above: Performed By: #### H STROPN, BNP, BMP #### [facility] [address] [address] [address] Trevor Nichols ALT [Catalytic activity/Vol] 18 U/L Normal 16-63 [facility] Comment on above: Performed By: #### H STROPN, BNP, BMP #### [facility] [address] [address] [address] Trevor Nichols Anion gap [Moles/Vol] 13.5 mmol/L Normal [facility] Comment on above: Performed By: #### H STROPN, BNP, BMP #### [facility] [address] [address] [address] Trevor Nichols AST [Catalytic activity/Vol] 10 U/L Critically low 15-37 [facility] Comment on above: Performed By: #### H STROPN, BNP, BMP #### [facility] [address] [place] [address] Dr. Trevor Nichols Bilirubin [Mass/Vol] 0.5 mg/dL Normal 0.2-1.0 [facility] Comment on above: Performed By: #### H STROPN, BNP, BMP #### [facility] [address] [address] [address] Trevor Nichols Calcium [Mass/Vol] 8.8 mg/dL Normal 8.5-10.1 [facility] Comment on above: Performed By: #### H STROPN, BNP, BMP #### [facility] [address] [address] [address] Trevor Nichols Chloride [Moles/Vol] 106 mmol/L Normal 98-107 [facility] Comment on above: Performed By: #### H STROPN, BNP, BMP #### [facility] [address] [address] [address] Trevor Nichols CO2 [Moles/Vol] 24.3 mmol/L Normal 21.0-32.0 [facility] Comment on above: Performed By: #### H STROPN, BNP, BMP #### [facility] [address] [address] [address] Trevor Nichols Creatinine [Mass/Vol] 1.35 mg/dL Critically high 0.70-1.30 [facility] Comment on above: Performed By: #### H STROPN, BNP, BMP #### [facility] [address] [address] [address] Trevor Nichols EGFR-AF FIJIAN >60 Normal >=60 [facility] Comment on above: Performed By: #### H STROPN, BNP, BMP #### [facility] [address] [place] [address] Dr. Trevor Nichols EGFR-NON AF FIJIAN 52 mL/min/1.73m2 Critically low >=60 [facility] Comment on above: Performed By: #### H STROPN, BNP, BMP #### [facility] [address] [address] [address] Trevor Nichols Globulin (S) [Mass/Vol] 3.8 g/dL Normal [facility] Comment on above: Performed By: #### H STROPN, BNP, BMP #### [facility] [address] [address] [address] Trevor Nichols Glucose [Mass/Vol] 103 mg/dL Normal 74-106 [facility] Comment on above: Performed By: #### H STROPN, BNP, BMP #### [facility] [address] [address] [address] Trevor Nichols Potassium [Moles/Vol] 3.8 mmol/L Normal 3.5-5.1 [facility] Comment on above: Performed By: #### H STROPN, BNP, BMP #### [facility] [address] [address] [address] Trevor Nichols Protein [Mass/Vol] 7.2 g/dL Normal 6.4-8.2 [facility] Comment on above: Performed By: #### H STROPN, BNP, BMP #### [facility] [address] [address] [address] Trevor Nichols Sodium [Moles/Vol] 140 mmol/L Normal 136-145 [facility] Comment on above: Performed By: #### H STROPN, BNP, BMP #### [facility] [address] [address] [address] Trevor Nichols Urea nitrogen [Mass/Vol] 22.0 mg/dL Critically high 7.0-18.0 [facility] Comment on above: Performed By: #### H STROPN, BNP, BMP #### [facility] [address] [place] [address] Dr. Trevor Nichols Urea nitrogen/Creatinine [Mass ratio] 16.3 mg/mg Normal [facility] Comment on above: Performed By: #### H STROPN, BNP, BMP #### [facility] [address] [place] [address] Dr. Trevor Nichols TSHon 02-05-2022 TSH 3.360 uIU/mL Normal 0.358-3.740 [facility] Comment on above: Performed By: #### H STROPN, BNP, BMP #### [facility] [address] [place] [address] Dr. Trevor Nichols XR CHEST 2 Von [...] by: ALLAN FLOREZ Date: 2022-02-05 17:03 Normal [facility] XR BONE SURVEYon 09-25-2021 XR BONE [...] SHAY BERNSTEIN Date: 2021-09-25 07:30 Normal [facility] PROTEIN ELECTROPHERESISon Albumin [Mass/Vol] 3.2 g/dL Normal 2.9-4.4 [facility] Comment on above: Performed By: #### P RTELEC ####[facility] [address] [place], [place] [address]KsJeffery Trevor Simone Albumin/Globulin [Mass ratio] 1.1 {ratio} Normal 0.7-1.7 [facility] Comment on above: Performed By: #### P RTELEC ####[facility] [address] [address]Dr. Trevor Simone Isoif-2-Epqinbds 0.3 g/dL Normal 0.0-0.4 [facility] Comment on above: Performed By: #### P RTELEC ####[facility] [address] [place], [place] [address]Dr. Vivifrancie Nichols Gtkvx-4-Elmzarek 0.8 g/dL Normal 0.4-1.0 [facility] Comment on above: Performed By: #### P RTELEC ####[facility] [address] [place], [place] [address]Dr. Vivifrancie Nichols Beta Globulin 1.0 g/dL Normal 0.7-1.3 [facility] Comment on above: Performed By: #### P RTELEC ####[facility] [address] [place], [place] [address]Dr. Trevor Nichols Gamma Globulin 0.8 g/dL Normal 0.4-1.8 [facility] Comment on above: Performed By: #### P RTELEC ####[facility] [address] [place], [place] [address]Dr. Vivifrancie Nichols Globulin (S) [Mass/Vol] 2.9 g/dL Normal 2.2-3.9 [facility] Comment on above: Performed By: #### P RTELEC ####[facility] [address] [place], [place] [address]Dr. Trevor Nichols M-Jorge 0.1 g/dL Critically high Not Observed [facility] Comment on above: Performed By: #### P RTELEC ####[facility] [address] [place], [place] [address]Dr. Trevor Nichols PDF . Normal [facility] Comment on above: Performed By: #### P RTELEC ####[facility] [address] [place], [place] [address]Dr. Trevor Nichols Please note: Comment Normal [facility] Comment on above: Result Comment: Prot ein electrophoresis scan will follow via computer, mail, or weight count operator delivery. Performed By: #### P RTELEC ####[facility] [address] [address]Dr. Trevor Nichols Protein [Mass/Vol] 6.1 g/dL Normal 6.0-8.5 [facility] Comment on above: Performed By: #### P RTELEC ####[facility] [address] [address]Dr. Trevor Nichols PROF CHEM 8 (BAS METB)on Anion gap [Moles/Vol] 16.3 mmol/L Normal [facility] Comment on above: Performed By: #### H STROPN, BNP, BMP #### [facility] [address] [address] [address] Trevor Nichols Calcium [Mass/Vol] 9.1 mg/dL Normal 8.4-10.2 [facility] Comment on above: Performed By: #### H STROPN, BNP, BMP #### [facility] [address] [address] [address] Trevor Nichols Chloride [Moles/Vol] 104 mmol/L Normal 98-107 [facility] Comment on above: Performed By: #### H STROPN, BNP, BMP #### [facility] [address] [address] [address] Trevor Nichols CO2 [Moles/Vol] 23.3 mmol/L Normal 22.0-30.0 [facility] Comment on above: Performed By: #### H STROPN, BNP, BMP #### [facility] [address] [address] [address] Trevor Nichols Creatinine [Mass/Vol] 1.28 mg/dL Critically high 0.66-1.25 [facility] Comment on above: Performed By: #### H STROPN, BNP, BMP #### [facility] [address] [address] [address] Trevor Nichols EGFR-AF FIJIAN >60 Normal >=60 [facility] Comment on above: Performed By: #### H STROPN, BNP, BMP #### [facility] [address] [address] [address] Trevor Nichols EGFR-NON AF FIJIAN 55 mL/min/1.73m2 Critically low >=60 [facility] Comment on above: Performed By: #### H STROPN, BNP, BMP #### [facility] [address] [address] [address] Trevor Nichols Glucose [Mass/Vol] 98 mg/dL Normal 74-106 [facility] Comment on above: Performed By: #### H STROPN, BNP, BMP #### [facility] [address] [address] [address] Trevor Nichols Potassium [Moles/Vol] 3.6 mmol/L Normal 3.4-5.0 [facility] Comment on above: Performed By: #### H STROPN, BNP, BMP #### [facility] [address] [place] [address] Dr. Trevor Nichols Sodium [Moles/Vol] 140 mmol/L Normal 137-145 [facility] Comment on above: Performed By: #### H STROPN, BNP, BMP #### [facility] [address] [place] [address] Dr. Trevor Nichols Urea nitrogen [Mass/Vol] 25.0 mg/dL Critically high 9.0-20.0 [facility] Comment on above: Performed By: #### H STROPN, BNP, BMP #### [facility] [address] [place] [address] Dr. Trevor Nichols Urea nitrogen/Creatinine [Mass ratio] 19.5 mg/mg Normal [facility] Comment on above: Performed By: #### H STROPN, BNP, BMP #### [facility] [address] [place] [address] Dr. Trevor Nichols XR MODIFIED BARIUM SWALLOWon [...] by: SHAY BERNSTEIN Date: 2021-09-05 10:40 Normal [facility] CULTURE SPUTUMon 08-01-2021 CULTURE SPUTUM Isolate [...] <=0.25 S F Levofloxacin <=0.12 S F Trimethoprim/Sulfamethoxaz ole <=20 S F Normal [facility] Comment on above: Performed By: #### H STROPN, BNP, BMP #### [facility] [address] [address] [address] Trevor Nichols SPUTUM GRAM STAINon 07-30-20 21 COMMENTS Normal [facility] Comment on above: Performed By: #### S PUTGS ####[facility] [address] [address]Dr. Trevor Nichols DIPHTHEROIDS Normal [facility] Comment on above: Performed By: #### S PUTGS ####[facility] [address] [address]Dr. Trevor Nichols EPITHELIALS >25 Normal [facility] Comment on above: Performed By: #### S PUTGS ####[facility] [address] [address]Dr. Trevor Nichols FUNGAL ELEMENTS Normal [facility] Comment on above: Performed By: #### S PUTGS ####[facility] [address] [address]. Trevor Nichols GRAM NEG BACILLI RARE Normal [facility] Comment on above: Performed By: #### S PUTGS ####[facility] [address] [address]Dr. Trevor Nichols GRAM NEG DIPPLOCOCCI Normal [facility] Comment on above: Performed By: #### S PUTGS ####[facility] [address] [address]Dr. Trevor Nichols GRAM POS BACILLI MANY Normal [facility] Comment on above: Performed By: #### S PUTGS ####[facility] [address] [address]Dr. Trevor Nichols GRAM POSITIVE COCCI MANY Normal [facility] Comment on above: Performed By: #### S PUTGS ####[facility] [address] [address]Dr. Trevor Nichols WBC (Bld) [#/Vol] 10*3/uL Normal [facility] Comment on above: Performed By: #### S PUTGS ####[facility] [address] [address]. Trevor Nichols ECHOCARDIO M/2D COMPLETEon 1 09-24-2020 ECHOCARDIO M/2D COMPLETE Patient: CHIKI JUAREZ Exam Date: 07/24/2021 : 1945 Gender:M Ordering : NANDINI NGO Admission #: [id number] Family : DR WILL SHERWOOD . Order #: [id number] CLICK HERE TO VIEW EXAM ECHOCARDIOGRAM REPORT [...] Easton M.D. on 07/24/2021 at 20:08 Normal [facility] CBC W MANUAL DIFFon 10-22-20 21 ATYPICAL LYMPH # Normal [facility] Comment on above: Performed By: #### H STROPN, BNP, BMP #### [facility] [address] [place] [address] Dr. Trevor Nichols ATYPICAL LYMPH % Normal [facility] Comment on above: Performed By: #### H STROPN, BNP, BMP #### [facility] [address] [address] [address] Trevor Nichols BAND # 0.1 103/ul Normal 0.0-0.3 [facility] Comment on above: Performed By: #### H STROPN, BNP, BMP #### [facility] [address] [address] [address] Trevor Nichols BAND % 2 % Normal 0-5 [facility] Comment on above: Performed By: #### H STROPN, BNP, BMP #### [facility] [address] [place] [address] Dr. Trevor Nichols BASOM # 0.00 103/ul Normal 0.00-0.10 [facility] Comment on above: Performed By: #### H STROPN, BNP, BMP #### [facility] [address] [place] [address] Dr. Trevor Nichols BASOM % 0.0 % Critically low 0.2-2.0 [facility] Comment on above: Performed By: #### H STROPN, BNP, BMP #### [facility] [address] [place] [address] Dr. Trevor Nichols BLAST # Normal [facility] Comment on above: Performed By: #### H STROPN, BNP, BMP #### [facility] [address] [place] [address] Dr. Trevor Nichols BLAST % Normal [facility] Comment on above: Performed By: #### H STROPN, BNP, BMP #### [facility] [address] [place] [address] Dr. Trevor Nichols CORRECTED WBC Normal 4.0-11.0 [facility] Comment on above: Performed By: #### H STROPN, BNP, BMP #### [facility] [address] [place] [address] Dr. Trevor Nichols EOS # 0.06 103/ul Normal 0.00-0.70 [facility] Comment on above: Performed By: #### H STROPN, BNP, BMP #### [facility] [address] [place] [address] Dr. Trevor Nichols EOS% 1.0 % Normal 0.9-7.0 [facility] Comment on above: Performed By: #### H STROPN, BNP, BMP #### [facility] [address] [place] [address] Dr. Trevor Nichols HCT 31.6 % Critically low 42.0-54.0 [facility] Comment on above: Performed By: #### H STROPN, BNP, BMP #### [facility] [address] [address] [address] Trevor Nichols HGB 9.7 g/dl Critically low 14.0-18.0 [facility] Comment on above: Performed By: #### H STROPN, BNP, BMP #### [facility] [address] [address] [address] Trevor Nichols LYMPHM # 0.46 103/ul Critically low 1.20-3.80 [facility] Comment on above: Performed By: #### H STROPN, BNP, BMP #### [facility] [address] [address] [address] Trevor Nichols LYMPHM% 8.0 % Critically low 20.5-60.0 [facility] Comment on above: Performed By: #### H STROPN, BNP, BMP #### [facility] [address] [place] [address] Dr. Trevor Nichols MACROCYTOSIS 1+ Normal [facility] Comment on above: Performed By: #### H STROPN, BNP, BMP #### [facility] [address] [address] [address] Trevor Nichols MCH 33.6 pg Normal 25.9-34.0 [facility] Comment on above: Performed By: #### H STROPN, BNP, BMP #### [facility] [address] [address] [address] Trevor Nichols MCHC 30.7 g/dl Normal 29.9-35.2 [facility] Comment on above: Performed By: #### H STROPN, BNP, BMP #### [facility] [address] [address] [address] Trevor Nichols MCV 109.3 fL Critically high 80.0-94.0 [facility] Comment on above: Performed By: #### H STROPN, BNP, BMP #### [facility] [address] [address] [address] Trevor Nichols METAMYELOCYTE # 0.1 103/ul Normal [facility] Comment on above: Performed By: #### H STROPN, BNP, BMP #### [facility] [address] [address] [address] Trevor Nichols METAMYELOCYTE % 2 % Normal [facility] Comment on above: Performed By: #### H STROPN, BNP, BMP #### [facility] [address] [address] [address] Trevor Nichols MONOM# 2.22 103/ul Critically high 0.30-0.80 [facility] Comment on above: Performed By: #### H STROPN, BNP, BMP #### [facility] [address] [address] [address] Trevor Nichols MONOM% 39.0 % Critically high 1.7-12.0 [facility] Comment on above: Performed By: #### H STROPN, BNP, BMP #### [facility] [address] [place] [address] Dr. Trevor Nichols MPV 9.4 fL Critically low 9.5-13.5 [facility] Comment on above: Performed By: #### H STROPN, BNP, BMP #### [facility] [address] [address] [address] Trevor Nichols MYELOCYTE # 0.3 103/ul Normal [facility] Comment on above: Performed By: #### H STROPN, BNP, BMP #### [facility] [address] [address] [address] Trevor Nichols MYELOCYTE % 6 % Normal [facility] Comment on above: Performed By: #### H STROPN, BNP, BMP #### [facility] [address] [address] [address] Trevor Nichols NRBC Normal [facility] Comment on above: Performed By: #### H STROPN, BNP, BMP #### [facility] [address] [place] [address] Dr. Trevor Nichols PLT 202 103/ul Normal 150-450 [facility] Comment on above: Performed By: #### H STROPN, BNP, BMP #### [facility] [address] [address] [address] Trevor Nichols RBC 2.89 106/ul Critically low 4.70-6.10 [facility] Comment on above: Performed By: #### H STROPN, BNP, BMP #### [facility] [address] [address] [address] Trevor Nichols RDW 15.4 % Critically high 11.0-15.0 [facility] Comment on above: Performed By: #### H STROPN, BNP, BMP #### [facility] [address] [address] [address] Trevor Nichols SEG # 2.39 103/ul Normal 1.40-6.50 [facility] Comment on above: Performed By: #### H STROPN, BNP, BMP #### [facility] [address] [place] [address] Dr. Trevor Nichols SEG % 42.0 % Critically low 43.0-75.0 [facility] Comment on above: Performed By: #### H STROPN, BNP, BMP #### [facility] [address] [address] [address] Trevor Nichols WBC 5.7 103/ul Normal 4.0-11.0 [facility] Comment on above: Performed By: #### H STROPN, BNP, BMP #### [facility] [address] [place] [address] Dr. Trevor Nichols PROF CHEM 8 (BAS METB)on Anion gap [Moles/Vol] 13.1 mmol/L Normal [facility] Comment on above: Performed By: #### B MP ####[facility] [address] [address]Dr. Trevor Nichols Calcium [Mass/Vol] 8.8 mg/dL Normal 8.4-10.2 [facility] Comment on above: Performed By: #### B MP ####[facility] [address] [address]Dr. Trevor Nichols Chloride [Moles/Vol] 104 mmol/L Normal 98-107 [facility] Comment on above: Performed By: #### B MP ####[facility] [address] [address]Dr. Trevor Nichols CO2 [Moles/Vol] 24.1 mmol/L Normal 22.0-30.0 [facility] Comment on above: Performed By: #### B MP ####[facility] [address] [address]Dr. Trevor Nichols Creatinine [Mass/Vol] 1.26 mg/dL Critically high 0.66-1.25 [facility] Comment on above: Performed By: #### B MP ####[facility] [address] [place], [place] [address]Dr. Trevor Nichols EGFR-AF FIJIAN >60 Normal >=60 [facility] Comment on above: Performed By: #### B MP ####[facility] [address] [place], [place] [address]Dr. Trevor Nichols EGFR-NON AF FIJIAN 56 mL/min/1.73m2 Critically low >=60 [facility] Comment on above: Performed By: #### B MP ####[facility] [address] [place], [place] [address]Dr. Trevor Nichols Glucose [Mass/Vol] 98 mg/dL Normal 74-106 [facility] Comment on above: Performed By: #### B MP ####[facility] [address] [place], [place] [address]Dr. Trevor Nichols Potassium [Moles/Vol] 4.2 mmol/L Normal 3.4-5.0 [facility] Comment on above: Performed By: #### B MP ####[facility] [address] [place], [place] [address]Dr. Trevor Nichols Sodium [Moles/Vol] 137 mmol/L Normal 137-145 [facility] Comment on above: Performed By: #### B MP ####[facility] [address] [place], [place] [address]Dr. Trevor Nichols Urea nitrogen [Mass/Vol] 20.0 mg/dL Normal 9.0-20.0 [facility] Comment on above: Performed By: #### B MP ####[facility] [address] [place], [place] [address]Dr. Trevor Nichols Urea nitrogen/Creatinine [Mass ratio] 15.9 mg/mg Normal [facility] Comment on above: Performed By: #### B MP ####[facility] [address] [place], [place] [address]Dr. Trevor Nichols CBC AUTO DIFFon 05-16-2021 BASO # 0.0 103/ul Normal 0.0-0.1 [facility] Comment on above: Performed By: #### C BC ####[facility] [address] [place], [place] [address]Dr. Trevor Nichols Basophils/100 WBC (Bld) 0.2 % Normal 0.2-2.0 [facility] Comment on above: Performed By: #### C BC ####[facility] [address] [place], [place] [address]Dr. Trevor Nichols EO # 0.0 103/ul Normal 0.0-0.7 [facility] Comment on above: Performed By: #### C BC ####[facility] [address] [place], [place] [address]Dr. Trevor Nichols Eosinophils/100 WBC (Bld) 0.0 % Critically low 0.9-7.0 [facility] Comment on above: Performed By: #### C BC ####[facility] [address] [place], [place] [address]Dr. Trevor Nichols Erythrocyte distribution width (RBC) [Ratio] 15.1 % Critically high 11.0-15.0 [facility] Comment on above: Performed By: #### C BC ####[facility] [address] [place], [place] [address]Dr. Trevor Nichols Hematocrit (Bld) [Volume fraction] 32.9 % Critically low 42.0-54.0 [facility] Comment on above: Performed By: #### C BC ####[facility] [address] [place], [place] [address]Dr. Trevor Nichols Hemoglobin (Bld) [Mass/Vol] 10.5 g/dL Critically low 14.0-18.0 [facility] Comment on above: Performed By: #### C BC ####[facility] [address] [id number]. Trevor Nichols IG # 0.29 10e3/ul Critically high 0.00-0.03 [facility] Comment on above: Performed By: #### C BC ####[facility] [address] [address]Dr. Trevor Nichols IG % 6.5 % Critically high 0.0-0.5 [facility] Comment on above: Performed By: #### C BC ####[facility] [address] [address]Dr. Trevor Nichols LYMPH # 0.2 103/ul Critically low 1.2-3.8 [facility] Comment on above: Performed By: #### C BC ####[facility] [address] [address]Dr. Trevor Nichols Lymphocytes/100 WBC (Bld) 5.4 % Critically low 20.5-60.0 [facility] Comment on above: Performed By: #### C BC ####[facility] [address] [place], [place] [address]Dr. Vivifrancie Nichols MANUAL DIFF REQ NO Normal [facility] Comment on above: Performed By: #### C BC ####[facility] [address] [address]Dr. Vivifrancie Nichols MCH (RBC) [Entitic mass] 33.8 pg Normal 25.9-34.0 [facility] Comment on above: Performed By: #### C BC ####[facility] [address] [address]Dr. Trevor Simone MCHC (RBC) [Mass/Vol] 31.9 g/dL Normal 29.9-35.2 [facility] Comment on above: Performed By: #### C BC ####[facility] [address] [address]Dr. Vivifrancie Nichols MCV (RBC) [Entitic vol] 105.8 fL Critically high 80.0-94.0 [facility] Comment on above: Performed By: #### C BC ####[facility] [address] [id number]. Trevor Nichols MONO # 0.3 103/ul Normal 0.3-0.8 [facility] Comment on above: Performed By: #### C BC ####[facility] [address] [id number]. Trevor Nichols Monocytes/100 WBC (Bld) 7.6 % Normal 1.7-12.0 [facility] Comment on above: Performed By: #### C BC ####[facility] [address] [id number]. Trevor Nichols NEUT # 3.6 103/ul Normal 1.4-6.5 [facility] Comment on above: Performed By: #### C BC ####[facility] [facility] [id number] [place] [id number]. Trevor Nichols Neutrophils/100 WBC (Bld) 80.3 % Critically high 43.0-75.0 [facility] Comment on above: Performed By: #### C BC ####[facility] [address] [place] [id number]. Trevor Nichols Platelet mean volume (Bld) [Entitic vol] 10.2 fL Normal 9.5-13.5 [facility] Comment on above: Performed By: #### C BC ####[facility] [address] [place] [id number]. Trevor Nichols PLT 192 103/ul Normal 150-450 [facility] Comment on above: Performed By: #### C BC ####[facility] [address] [place] [id number]. Trevor Nichols RBC 3.11 106/ul Critically low 4.70-6.10 [facility] Comment on above: Performed By: #### C BC ####[facility] [address] [place] [id number]. Trevor Nichols WBC 4.5 103/ul Normal 4.0-11.0 [facility] Comment on above: Performed By: #### C BC ####[facility] [address] [place] [id number]. Vivifrancie Nichols CT STROKE HEAD WOon 05-16-20 21 [...] by: SHAY BERNSTEIN Date: 2021-05-16 14:45 Normal [facility] CTA NECK WO W CONon 05-16-20 [...] SHAY BERNSTEIN Date: 2021-05-16 16:53 Normal [facility] IRON AND TIBCon 05-16-2021 % SATURATION 16.2 % Normal [facility] Comment on above: Performed By: #### F ETIBC, B12FOL #### [facility] [address] [place] [address] Dr. Trevor Nichols Iron [Mass/Vol] 32.0 ug/dL Critically low 49.0-181.0 [facility] Comment on above: Performed By: #### F ETIBC, B12FOL #### [facility] [address] [place] [address] Dr. Trevor Nichols TIBC DIRECT 198.0 ug/dL Critically low 261.0-497.0 [facility] Comment on above: Performed By: #### F ETIBC, B12FOL #### [facility] [address] [place] [address] Dr. Trevor Nichols PROF CHEM 8 (BAS METB)on Anion gap [Moles/Vol] 14.9 mmol/L Normal [facility] Comment on above: Performed By: #### B MP #### [facility] [address] [place] [address] Dr. Trevor Nichols Calcium [Mass/Vol] 9.2 mg/dL Normal 8.4-10.2 [facility] Comment on above: Performed By: #### B MP #### [facility] [address] [address] [address] Trevor Nichols Chloride [Moles/Vol] 105 mmol/L Normal 98-107 [facility] Comment on above: Performed By: #### B MP #### [facility] [address] [address] [address] Trevor Nichols CO2 [Moles/Vol] 21.6 mmol/L Critically low 22.0-30.0 [facility] Comment on above: Performed By: #### B MP #### [facility] [address] [address] [address] Trevor Nichols Creatinine [Mass/Vol] 1.36 mg/dL Critically high 0.66-1.25 [facility] Comment on above: Performed By: #### B MP #### [facility] [address] [place] [address] Dr. Trevor Nichols EGFR-AF FIJIAN >60 Normal >=60 [facility] Comment on above: Performed By: #### B MP #### [facility] [address] [place] [address] Dr. Trevor Nichols EGFR-NON AF FIJIAN 51 mL/min/1.73m2 Critically low >=60 [facility] Comment on above: Performed By: #### B MP #### [facility] [address] [place] [address] Dr. Trevor Nichols Glucose [Mass/Vol] 206 mg/dL Critically high 74-106 [facility] Comment on above: Performed By: #### B MP #### [facility] [address] [place] [address] Dr. Trevor Nichols Potassium [Moles/Vol] 4.5 mmol/L Normal 3.4-5.0 [facility] Comment on above: Performed By: #### B MP #### [facility] [address] [place] [address] Dr. Trevor Nichols Sodium [Moles/Vol] 137 mmol/L Normal 137-145 [facility] Comment on above: Performed By: #### B MP #### [facility] [address] [place] [address] Dr. Trevor Nichols Urea nitrogen [Mass/Vol] 26.0 mg/dL Critically high 9.0-20.0 [facility] Comment on above: Performed By: #### B MP #### [facility] [address] [place] [address] Dr. Trevor Nichols Urea nitrogen/Creatinine [Mass ratio] 19.1 mg/mg Normal [facility] Comment on above: Performed By: #### B MP #### [facility] [address] [place] [address] Dr. Trevor Nichols VIT B12 AND FOLATEon 021 Cobalamin (Vitamin B12) [Mass/Vol] pg/mL Critically high 239.0-931.0 [facility] Comment on above: Performed By: #### F ETIBC, B12FOL #### [facility] [address] [place] [address] Dr. Trevor Nichols FOLATE 15.40 ng/mL Normal >=2.76 [facility] Comment on above: Performed By: #### F ETIBC, B12FOL #### [facility] [address] [place] [address] Dr. Trevor Nichols BNPon 05-15-2021 Natriuretic peptide B (Bld) [Mass/Vol] 379.0 pg/mL Normal <=900.0 [facility] Comment on above: Performed By: #### H STROPN, BNP, BMP #### [facility] [address] [place] [address] Dr. Trevor Nichols CBC W MANUAL DIFFon 05-15-20 21 ATYPICAL LYMPH # Normal [facility] Comment on above: Performed By: #### H STROPN, BNP, BMP #### [facility] [address] [place] [address] Dr. Trevor Nichols ATYPICAL LYMPH % Normal [facility] Comment on above: Performed By: #### H STROPN, BNP, BMP #### [facility] [address] [place] [address] Dr. Trevor Nichols BAND # 0.0 103/ul Normal 0.0-0.3 [facility] Comment on above: Performed By: #### H STROPN, BNP, BMP #### [facility] [address] [address] [address] Trevor Nichols BAND % 1 % Normal 0-5 [facility] Comment on above: Performed By: #### H STROPN, BNP, BMP #### [facility] [address] [address] [address] Trevor Nichols BASOM # 0.00 103/ul Normal 0.00-0.10 [facility] Comment on above: Performed By: #### H STROPN, BNP, BMP #### [facility] [address] [address] [address] Trevor Nichols BASOM % 0.0 % Critically low 0.2-2.0 [facility] Comment on above: Performed By: #### H STROPN, BNP, BMP #### [facility] [address] [place] [address] Dr. Trevor Nichols BLAST # Normal [facility] Comment on above: Performed By: #### H STROPN, BNP, BMP #### [facility] [address] [place] [address] Dr. Trevor Nichols BLAST % Normal [facility] Comment on above: Performed By: #### H STROPN, BNP, BMP #### [facility] [address] [place] [address] Dr. Trevor Nichols BRENDA CELLS SLIGHT Normal [facility] Comment on above: Performed By: #### H STROPN, BNP, BMP #### [facility] [address] [place] [address] Dr. Trevor Nichols CORRECTED WBC Normal 4.0-11.0 [facility] Comment on above: Performed By: #### H STROPN, BNP, BMP #### [facility] [address] [place] [address] Dr. Trevor Nichols EOS # 0.05 103/ul Normal 0.00-0.70 [facility] Comment on above: Performed By: #### H STROPN, BNP, BMP #### [facility] [address] [address] [address] Trevor Nichols EOS% 1.0 % Normal 0.9-7.0 [facility] Comment on above: Performed By: #### H STROPN, BNP, BMP #### [facility] [address] [address] [address] Trevor Nichols HCT 32.5 % Critically low 42.0-54.0 [facility] Comment on above: Performed By: #### H STROPN, BNP, BMP #### [facility] [address] [address] [address] Trevor Nichols HGB 10.5 g/dl Critically low 14.0-18.0 [facility] Comment on above: Performed By: #### H STROPN, BNP, BMP #### [facility] [address] [place] [address] Dr. Trevor Nichols HYPOCHROMASIA 2+ Normal [facility] Comment on above: Performed By: #### H STROPN, BNP, BMP #### [facility] [address] [place] [address] Dr. Trevor Nichols LYMPHM # 1.03 103/ul Critically low 1.20-3.80 [facility] Comment on above: Performed By: #### H STROPN, BNP, BMP #### [facility] [address] [place] [address] Dr. Trevor Nichols LYMPHM% 22.0 % Normal 20.5-60.0 [facility] Comment on above: Performed By: #### H STROPN, BNP, BMP #### [facility] [address] [place] [address] Dr. Trevro Nichols MACROCYTOSIS 2+ Normal [facility] Comment on above: Performed By: #### H STROPN, BNP, BMP #### [facility] [address] [address] [address] Trevor Nichols MCH 34.5 pg Critically high 25.9-34.0 [facility] Comment on above: Performed By: #### H STROPN, BNP, BMP #### [facility] [address] [address] [address] Trevor Nichols MCHC 32.3 g/dl Normal 29.9-35.2 [facility] Comment on above: Performed By: #### H STROPN, BNP, BMP #### [facility] [address] [address] [address] Trevor Nichols MCV 106.9 fL Critically high 80.0-94.0 [facility] Comment on above: Performed By: #### H STROPN, BNP, BMP #### [facility] [address] [address] [address] Trevor Nichols METAMYELOCYTE # Normal [facility] Comment on above: Performed By: #### H STROPN, BNP, BMP #### [facility] [address] [address] [address] Trevor Nichols METAMYELOCYTE % Normal [facility] Comment on above: Performed By: #### H STROPN, BNP, BMP #### [facility] [address] [place] [address] Dr. Trevor Nichols MONOM# 1.74 103/ul Critically high 0.30-0.80 [facility] Comment on above: Performed By: #### H STROPN, BNP, BMP #### [facility] [address] [place] [address] Dr. Trevor Nichols MONOM% 37.0 % Critically high 1.7-12.0 [facility] Comment on above: Performed By: #### H STROPN, BNP, BMP #### [facility] [address] [place] [address] Dr. Trevor Nichols MPV 10.8 fL Normal 9.5-13.5 [facility] Comment on above: Performed By: #### H STROPN, BNP, BMP #### [facility] [address] [place] [address] Dr. Trevor Nichols MYELOCYTE # Normal [facility] Comment on above: Performed By: #### H STROPN, BNP, BMP #### [facility] [address] [place] [address] Dr. Trevor Nichols MYELOCYTE % Normal [facility] Comment on above: Performed By: #### H STROPN, BNP, BMP #### [facility] [address] [place] [address] Dr. Trevor Nichols NRBC Normal [facility] Comment on above: Performed By: #### H STROPN, BNP, BMP #### [facility] [address] [place] [address] Dr. Trevor Nichols PLT 222 103/ul Normal 150-450 [facility] Comment on above: Performed By: #### H STROPN, BNP, BMP #### [facility] [address] [place] [address] Dr. Trevor Nichols POIKILOCYTOSIS 2+ Normal [facility] Comment on above: Performed By: #### H STROPN, BNP, BMP #### [facility] [address] [place] [address] Dr. Trevor Nichols RBC 3.04 106/ul Critically low 4.70-6.10 [facility] Comment on above: Performed By: #### H STROPN, BNP, BMP #### [facility] [address] [place] [address] Dr. Trevor Nichols RDW 15.6 % Critically high 11.0-15.0 [facility] Comment on above: Performed By: #### H STROPN, BNP, BMP #### [facility] [address] [place] [address] Dr. Trevor Nichols SEG # 1.83 103/ul Normal 1.40-6.50 [facility] Comment on above: Performed By: #### H STROPN, BNP, BMP #### [facility] [address] [place] [address] Dr. Trevor Nichols SEG % 39.0 % Critically low 43.0-75.0 [facility] Comment on above: Performed By: #### H STROPN, BNP, BMP #### [facility] [address] [place] [address] Dr. Trevor Nichols TARGET CELLS 1+ Normal [facility] Comment on above: Performed By: #### H STROPN, BNP, BMP #### [facility] [address] [place] [address] Dr. Trevor Nichols TEAR DROP CELLS SLIGHT Normal [facility] Comment on above: Performed By: #### H STROPN, BNP, BMP #### [facility] [address] [place], [place] [address] Dr. Trevor Nichols WBC 4.7 103/ul Normal 4.0-11.0 [facility] Comment on above: Performed By: #### H STROPN, BNP, BMP #### [facility] [address], [place] [address] Dr. Trevor Nichols CTA CHEST WO W [...] RAY SAWANT Date: 2021-05-15 11:15 Normal [facility] CULTURE BLOODon 05-15-2021 Microscopic examination of blood, culture Culture Observations: No growth at 5 days. Normal [facility] Comment on above: Performed By: #### H STROPN, BNP, BMP #### [facility] [address] [place], [place] [address] Dr. Trevor Nichols Covid-19 PCR (CVDTBH)on 04-18 SARS-CoV-2 (COVID-19) RNA DEVIN+probe Ql (Unsp spec) Not detected Normal NOT DETECTED [facility] Comment on above: Result Comment: When diagnostic testing is negative, the possibility of a false negative should be considered in the context of a patient's recent exposures and the presence of clinical signs and symptoms consistent with SARS-CoV-2. This test is not yet approved or cleared by the [place] Food and Drug Administration (FDA). This test was developed by [employer], [place], [place]. The performance characteristics of this test were validated by [facility]. The results are not intended to be used as the sole means for clinical diagnosis or patient management decisions. [facility] is authorized under Clinical Laboratory Improvement Amendments (CLIA) to perform high- complexity testing. Performed By: #### H STROPN, BNP, BMP #### [facility] [address] [address] [address] Trevor Nichols FREE T3on 05-15-2021 FREE T3 1.66 pg/mlL Critically low 2.77-5.27 [facility] Comment on above: Performed By: #### T SH, FT3 ####[facility] [address] [place], [place] [address]Dr. Trevor Nichols FREE T4on 05-15-2021 Free T4 [Mass/Vol] 1.06 ng/dL Normal 0.78-2.19 [facility] Comment on above: Performed By: #### F T4 ####[facility] [address] [place], [place] [address]Dr. Trevor Nichols LACTATE/LACTIC ACIDon 2020 Lactate [Moles/Vol] 1.2 mmol/L Normal 0.7-2.0 [facility] Comment on above: Performed By: #### L ACT ####[facility] [address] [place], [place] [address]Dr. Trevor Nichols Lactate [Moles/Vol] 1.5 mmol/L Normal 0.7-2.0 [facility] Comment on above: Performed By: #### L ACT ####[facility] [address] [place], [place] [id number]. Trevor Nichols PROF CHEM 8 (BAS METB)on Anion gap [Moles/Vol] 12.5 mmol/L Normal [facility] Comment on above: Performed By: #### H STROPN, BNP, BMP #### [facility] [address] [address] [address] Trevor Nichols Calcium [Mass/Vol] 8.4 mg/dL Normal 8.4-10.2 [facility] Comment on above: Performed By: #### H STROPN, BNP, BMP #### [facility] [address] [address] [address] Trevor Nichols Chloride [Moles/Vol] 106 mmol/L Normal 98-107 [facility] Comment on above: Performed By: #### H STROPN, BNP, BMP #### [facility] [address] [place] [address] Dr. Trevor Nichols CO2 [Moles/Vol] 24.8 mmol/L Normal 22.0-30.0 [facility] Comment on above: Performed By: #### H STROPN, BNP, BMP #### [facility] [address] [address] [address] Trevor Nichols Creatinine [Mass/Vol] 1.37 mg/dL Critically high 0.66-1.25 [facility] Comment on above: Performed By: #### H STROPN, BNP, BMP #### [facility] [address] [address] [address] Trevor Nichols EGFR-AF FIJIAN >60 Normal >=60 [facility] Comment on above: Performed By: #### H STROPN, BNP, BMP #### [facility] [address] [address] [address] Trevor Nichols EGFR-NON AF FIJIAN 51 mL/min/1.73m2 Critically low >=60 [facility] Comment on above: Performed By: #### H STROPN, BNP, BMP #### [facility] [address] [address] [address] Trevor Nichols Glucose [Mass/Vol] 114 mg/dL Critically high 74-106 [facility] Comment on above: Performed By: #### H STROPN, BNP, BMP #### [facility] [address] [address] [address] Trevor Nichols Potassium [Moles/Vol] 4.4 mmol/L Normal 3.4-5.0 [facility] Comment on above: Performed By: #### H STROPN, BNP, BMP #### [facility] [address] [address] [address] Trevor Nichols Sodium [Moles/Vol] 139 mmol/L Normal 137-145 [facility] Comment on above: Performed By: #### H STROPN, BNP, BMP #### [facility] [address] [place] [address] Dr. Trevor Nichols Urea nitrogen [Mass/Vol] 20.0 mg/dL Normal 9.0-20.0 [facility] Comment on above: Performed By: #### H STROPN, BNP, BMP #### [facility] [address] [place] [address] Dr. Trevor Nichols Urea nitrogen/Creatinine [Mass ratio] 14.6 mg/mg Normal [facility] Comment on above: Performed By: #### H STROPN, BNP, BMP #### [facility] [address] [place] [address] Dr. Trevor Nichols TROPONIN, HIGH SENSITIVITYon 05-15-2021 HSTROP 7.1 pg/mL Normal 4.0-42.2 [facility] Comment on above: Result Comment: CUT- OFF POINTS HAVE BEEN ESTABLISHED BASED ON THE FOURTH UNIVERSAL DEFINITIONS OF MYOCARDIAL INFARCTION. THE UPPER REFERENCE LIMIT (URL) OF TROPONIN, DEFINED THE 99TH PERCENTILE OF cTnI DISTRIBUTION IN A REFERENCE POPULATION, HAS BEEN CONFIRMED THE DECISION THRESHOLD FOR ID DIAGNOSIS. Performed By: #### H STROPN, BNP, BMP #### [facility] [address] [place] [address] Dr. Trevor Nichols TSHon 05-15-2021 TSH 1.972 uIU/mL Normal 0.470-4.680 [facility] Comment on above: Performed By: #### T SH, FT3 ####[facility] [address] [place] [id number]. Trevor Nichols TSH RANGE SEE BELOW Normal [facility] Comment on above: Result Comment: <0.3 4 UIU/ml HYPERTHYROID 0.34-5.60 UIU/ml EUTHYROID >5.60 UIU/ml HYPOTHYROID Performed By: #### T SH, FT3 ####[facility] [address] [place], [place] [address]Dr. Trevor Nichols D-DIMERon 05-14-2021 D-DIMER 0.76 mg/L FEU Critically high 0.19-0.50 [facility] Comment on above: Performed By: #### H STROPN, BNP, BMP #### [facility] [address] [address] [address] Trevor Nichols D-DIMER COMMENTS SEE BELOW Normal [facility] Comment on above: Result Comment: Incr [...] By: #### H STROPN, BNP, BMP #### [facility] [address] [address] [address] Trevor Nichols PROF CHEM 8 (BAS METB)on Anion gap [Moles/Vol] 12.0 mmol/L Normal [facility] Comment on above: Performed By: #### H STROPN, BNP, BMP #### [facility] [address] [address] [address] Trevor Nichols Calcium [Mass/Vol] 8.5 mg/dL Normal 8.4-10.2 [facility] Comment on above: Performed By: #### H STROPN, BNP, BMP #### [facility] [address] [place] [address] [address] Trevor Nichols Chloride [Moles/Vol] 106 mmol/L Normal 98-107 [facility] Comment on above: Performed By: #### H STROPN, BNP, BMP #### [facility] [address] [place] [address] Dr. Trevor Nichols CO2 [Moles/Vol] 25.0 mmol/L Normal 22.0-30.0 [facility] Comment on above: Performed By: #### H STROPN, BNP, BMP #### [facility] [address] [place] [address] Dr. Trevor Nichols Creatinine [Mass/Vol] 1.61 mg/dL Critically high 0.66-1.25 [facility] Comment on above: Performed By: #### H STROPN, BNP, BMP #### [facility] [address] [place] [address] Dr. Trevor Nichols EGFR-AF FIJIAN 51 mL/min/1.73m2 Critically low >=60 [facility] Comment on above: Performed By: #### H STROPN, BNP, BMP #### [facility] [address] [place] [address] Dr. Trevor Nichols EGFR-NON AF FIJIAN 42 mL/min/1.73m2 Critically low >=60 [facility] Comment on above: Performed By: #### H STROPN, BNP, BMP #### [facility] [address] [place] [address] Dr. Trevor Nichols Glucose [Mass/Vol] 115 mg/dL Critically high 74-106 [facility] Comment on above: Performed By: #### H STROPN, BNP, BMP #### [facility] [address] [place] [address] Dr. Trevor Nichols Potassium [Moles/Vol] 4.0 mmol/L Normal 3.4-5.0 [facility] Comment on above: Performed By: #### H STROPN, BNP, BMP #### [facility] [address] [place] [address] Dr. Trevor Nichols Sodium [Moles/Vol] 139 mmol/L Normal 137-145 [facility] Comment on above: Performed By: #### H STROPN, BNP, BMP #### [facility] [address] [address] [address] Trevor Nichols Urea nitrogen [Mass/Vol] 20.0 mg/dL Normal 9.0-20.0 [facility] Comment on above: Performed By: #### H STROPN, BNP, BMP #### [facility] [address] [place] [address] [address] Trevor Nichols Urea nitrogen/Creatinine [Mass ratio] 12.4 mg/mg Normal [facility] Comment on above: Performed By: #### H STROKALEN, BNP, BMP #### [facility] [address] [address] [address] Trevor Nichols PROF CHEM 8 (BAS METB)on Anion gap [Moles/Vol] 19.5 mmol/L Normal [facility] Comment on above: Performed By: #### B MP ####[facility] [address] [place] [address]Dr. Trevor Nichols Calcium [Mass/Vol] 9.1 mg/dL Normal 8.4-10.2 [facility] Comment on above: Performed By: #### B MP ####[facility] [address] [place] [address]Dr. Trevor Nichols Chloride [Moles/Vol] 104 mmol/L Normal 98-107 [facility] Comment on above: Performed By: #### B MP ####[facility] [address] [place] [address]Dr. Trevor Nichols CO2 [Moles/Vol] 19.6 mmol/L Critically low 22.0-30.0 [facility] Comment on above: Performed By: #### B MP ####[facility] [address] [place] [address]DrJeffery Nichols Creatinine [Mass/Vol] 1.69 mg/dL Critically high 0.66-1.25 [facility] Comment on above: Performed By: #### B MP ####[facility] [address] [place] [address]DrJeffery Nichols EGFR-AF FIJIAN 48 mL/min/1.73m2 Critically low >=60 [facility] Comment on above: Performed By: #### B MP ####[facility] Hhanqqvkfj[address] [place] [id number]. Trevor Nichols EGFR-NON AF FIJIAN 40 mL/min/1.73m2 Critically low >=60 [facility] Comment on above: Performed By: #### B MP ####[facility] Lbmyqfouut[address] [place] [phone]. Trevor Nichols Glucose [Mass/Vol] 95 mg/dL Normal 74-106 [facility] Comment on above: Performed By: #### B MP ####[facility] Hqjkjgurrk[address] [place] [address]Dr. Trevor Nichols Potassium [Moles/Vol] 5.4 mmol/L Critically high 3.4-5.0 [facility] Comment on above: Performed By: #### B MP ####[facility] Cyuzconolz[address] [place] [address]Dr. Trevor Nichols Sodium [Moles/Vol] 138 mmol/L Normal 137-145 [facility] Comment on above: Performed By: #### B MP ####[facility] Jnxnxrfltv9[address] [place] [address]Dr. Trevor Nichols Urea nitrogen [Mass/Vol] 26.0 mg/dL Critically high 9.0-20.0 [facility] Comment on above: Performed By: #### B MP ####[facility] Zruzhvblyo34[address] [place] [address]Dr. Trevor Nichols Urea nitrogen/Creatinine [Mass ratio] 15.4 mg/mg Normal [facility] Comment on above: Performed By: #### B MP ####[facility] Izbmylmdrf[address] [place] [address]Dr. Trevor Nichols BNPon 04-29-2021 Natriuretic peptide B (Bld) [Mass/Vol] 421.0 pg/mL Normal <=900.0 [facility] Comment on above: Performed By: #### B PACKAGING LINE ATTENDANT, MG ####[facility] Oithouzbdr9[address] [place] [phone] Trotter CBC W MANUAL DIFFon 09-13-20 21 ATYPICAL LYMPH # 0.19 103/ul Normal [facility] Comment on above: Performed By: #### Brodie HEMPHILL ####[facility] X[address] [place] [address] [place]#### PERSMR ####[facility] Lywxcdfbtf[address] [place], [place] [address]Dr. Yifrancie Nichols ATYPICAL LYMPH % 4 % Normal [facility] Comment on above: Performed By: #### C JOBY ####[facility] Fcmsxywooq[address] [place] [address] [place]#### PERSMR ####[facility] Chfdtghder[address] [place], [place] [address]Dr. Yilan Nichols BAND # 0.2 103/ul Normal 0.0-0.3 [facility] Comment on above: Performed By: #### C JOBY ####[facility] Ldehvkevsv[address] [place] [address] [place]#### PERSMR ####[facility] Zptjomqwrq[address] [place], [place] [address]Dr. Yilan Nichols BAND % 5 % Normal 0-5 [facility] Comment on above: Performed By: #### Brodie HEMPHILL ####[facility] Ckmlxejuqo[address] [place] [address] [place]#### PERSMR ####[facility] Mdetvqbcdq[address] [place], [place] [address]Dr. Yilan Nichols BASOM # 0.05 103/ul Normal 0.00-0.10 [facility] Comment on above: Performed By: #### Brodie HEMPHILL ####[facility] Cwgmdubyvf[address] [place] [address] [place]#### PERSMR ####[facility] Ryagsfrlom[address] [place], [place] [address]Dr. Yilan Nichols BASOM % 1.0 % Normal 0.2-2.0 [facility] Comment on above: Performed By: #### Brodie HEMPHILL ####[facility] Uzehrkzvak[address] [place] [address] [place]#### PERSMR ####[facility] Ynejyqmguo30[address] [place] [address]Dr. Trevor Nichols BLAST # Normal [facility] Comment on above: Performed By: #### C FAVIOMAN ####[facility] Jwaxsalcrg[address] [place], [place] [address]Gerken [place]#### PERSMR ####[facility] Mirtweqjsv5[address] [place] [address]Dr. Trevor Nichols BLAST % Normal [facility] Comment on above: Performed By: #### C JOBY ####[facility] Zzzyordyub[address] [place] [address] [place]#### PERSMR ####[facility] Zshldopdyq50[address] [place], [place] [address]Dr. Trevor Nichols CORRECTED WBC Normal 4.0-11.0 [facility] Comment on above: Performed By: #### C JOBY ####[facility] Stimlrjxjp[address] [place] [address] [place]#### PERSMR ####[facility] Axxxkhszgy47[address] [place], [place] [address]Dr. Trevor Nichols EOS # 0.00 103/ul Normal 0.00-0.70 [facility] Comment on above: Performed By: #### C JOBY ####[facility] Pcmyhhztxn[address] [place] [address] [place]#### PERSMR ####[facility] Gppkpryrua[address] [place], [place] [address]Dr. Trevor Nichols EOS% 0.0 % Critically low 0.9-7.0 [facility] Comment on above: Performed By: #### C JOBY ####[facility] Zhtsrsajxp[address] [place] [address] [place]#### PERSMR ####[facility] Xridmlfkjt[address] [place], [place] [address]Dr. Trevor Nichols HCT 35.7 % Critically low 42.0-54.0 [facility] Comment on above: Performed By: #### C JOBY ####[facility] Ecovlqoeho4508 [address] [place]#### PERSMR ####[facility] Yhsmvtzrpd7890 [place] [phone]. Tervor Nichols HGB 11.7 g/dl Critically low 14.0-18.0 [facility] Comment on above: Performed By: #### Brodie HEMPHILL ####[facility] Lhcmgkuxzq[address] [place] [address] [place]#### PERSMR ####[facility] Nctdufxwwd80[address] [place] [phone]. Trevor Nichols LYMPHM # 0.72 103/ul Critically low 1.20-3.80 [facility] Comment on above: Performed By: #### Brodie HEMPHILL ####[facility] Gofsradlzo[address] [place] [address] [place]#### PERSMR ####[facility] Umovxogjbw5[address] [place], [place] [address]Dr. Trevor Nichols LYMPHM% 15.0 % Critically low 20.5-60.0 [facility] Comment on above: Performed By: #### Brodie HEMPHILL ####[facility] Vvhxqnzzou[address] [place] [address] [place]#### PERSMR ####[facility] Qmhcymzjvz56[address] [place], [place] [address]Dr. Trevor Nichols MCH 34.4 pg Critically high 25.9-34.0 [facility] Comment on above: Performed By: #### Brodie HEMPHILL ####[facility] Zuiblfiljz[address] [place] [address] [place]#### PERSMR ####[facility] Agpwfxzwtl7104 [place] [address]Dr. Trevor Nichols MCHC 32.8 g/dl Normal 29.9-35.2 [facility] Comment on above: Performed By: #### Brodie HEMPHILL ####[facility] Ppidyixjav[address] [place] [address] [place]#### PERSMR ####[facility] Gejskxgmpe[address] [place], [place] [address]Dr. Trevor Nichols MCV 105.0 fL Critically high 80.0-94.0 [facility] Comment on above: Performed By: #### Brodie HEMPHILL ####[facility] Ibcbgtubrv[address] [place] [address] [place]#### PERSMR ####[facility] Dneisvkuoi4[address] [place] [address]Dr. Trevor Nichols METAMYELOCYTE # Normal [facility] Comment on above: Performed By: #### Brodie HEMPHILL ####[facility] Tpyaqxzewk[address] [place] [address] [place]#### PERSMR ####[facility] Unfxfiqvpk[address] [place], [place] [address]Dr. Trevor Nichols METAMYELOCYTE % Normal [facility] Comment on above: Performed By: #### Brodie HEMPHILL ####[facility] Wbnwzevieu[address] [place] [address] [place]#### PERSMR ####[facility] Rnqzxrgheb3[address] [place], [place] [address]Dr. Trevor Nichols MONOM# 1.25 103/ul Critically high 0.30-0.80 [facility] Comment on above: Performed By: #### Brodie HEMPHILL ####[facility] Lhondozgga[address] [place] [address] [place]#### PERSMR ####[facility] Sxwatpffyn[address] [place], [place] [address]Dr. Trevor Nichols MONOM% 26.0 % Critically high 1.7-12.0 [facility] Comment on above: Performed By: #### Brodie HEMPHILL ####[facility] Mfxfrhxxco[address] [place] [address] [place]#### PERSMR ####[facility] Mqzwvtgvea0[address] [place], [place] [address]Dr. Trevor Nichols MPV 10.5 fL Normal 9.5-13.5 [facility] Comment on above: Performed By: #### Brodie HEMPHILL ####[facility] Krqejulmsm[address] [place] [address] [place]#### PERSMR ####[facility] Yxqrahvuuc4464 [place], [place] [address]Mm. Trevor Nichols MYELOCYTE # Normal [facility] Comment on above: Performed By: #### Brodie HEMPHILL ####[facility] Zcxbqowewm76[address] [place] [address]Gerken [place]#### PERSMR ####[facility] Mufxbfzaaz8179 [place] [phone]. Trevor Nichols MYELOCYTE % Normal [facility] Comment on above: Performed By: #### Brodie HEMPHILL ####[facility] Hxumrgswae2164 [address] [place]#### PERSMR ####[facility] Cpzsaevtmx9949 [place] [phone]. Trevor Nichols NRBC Normal [facility] Comment on above: Performed By: #### Brodie HEMPHILL ####[facility] Jshjluenwe0550 [address] [place]#### PERSMR ####[facility] Wxzvadrbhz1347 [place] [phone]. Trevor Nichols PATH REVIEW INDICATED Normal [facility] Comment on above: Performed By: #### Brodie HEMPHILL ####[facility] Yoblqoxplf8397 [address] [place]#### PERSMR ####[facility] Cdwzonfbso7364 [place] [phone]. Trevro Nichols PLT 158 103/ul Normal 150-450 [facility] Comment on above: Performed By: #### Brodie HEMPHILL ####[facility] Tpyeliiork8146 [place] [address]Gerken [place]#### PERSMR ####[facility] Skpainlcnk6[address] [place] [address]Dr. Trevor Nichols RBC 3.40 106/ul Critically low 4.70-6.10 [facility] Comment on above: Performed By: #### Brodie HEMPHILL ####[facility] Jgwarhpdnw0069 [place] [address]Gerken [place]#### PERSMR ####[facility] Tyeddqyvxa6546 [place] [phone]. Trevor Nichols RDW 15.6 % Critically high 11.0-15.0 [facility] Comment on above: Performed By: #### C FAVIOMAN ####[facility] Nwonzkcbxn1466 [address] [place]#### PERSMR ####[facility] Vntdmpdygg8541 [place] [address]Dr. Trevor Nichols SEG # 2.35 103/ul Normal 1.40-6.50 [facility] Comment on above: Performed By: #### C JOBY ####[facility] Ommtdpcrq[address] [place] [address] [place]#### PERSMR ####[facility] Aekiucrxiq[address] [place], [place] [address]Dr. Trevor Nichols SEG % 49.0 % Normal 43.0-75.0 [facility] Comment on above: Performed By: #### C BCMAN ####[facility] Fxjxyhvcws[address] [place] [address] [place]#### PERSMR ####[facility] Mjbjdscgwc[address] [place], [place] [address]Dr. Trevor Nichols WBC 4.8 103/ul Normal 4.0-11.0 [facility] Comment on above: Performed By: #### C FAVIOMAN ####[facility] Abutmfepdz[address] [place] [address] [place]#### PERSMR ####[facility] Boeukniqia44[address] [place], [place] [address]Dr. Trevor Nichols MAGNESIUMon 04-29-2021 Magnesium [Mass/Vol] 2.4 mg/dL Critically high 1.6-2.3 [facility] Comment on above: Performed By: #### B PACKAGING LINE ATTENDANT, MG ####[facility] Aypuqylegj[address] [place] [address] [place] PERIPHERAL SMEARon Pathologist Cyto stain Nom (Cvx/Vag) [ID] DR. BHARTI PARDO [place] [facility] Comment on above: Result Comment: Kate pheral blood smear reveals isolated monocytosis with unremarkable morphology. The neutrophils and platelets are morphologically unremarkable. No atypical lymphocytes or blasts are noted. A reactive process is favored. Clinical correlation is suggested. Dr Bharti Pardo 05/01/2021 Performed By: #### Brodie HEMPHILL ####[facility] Ocrbislzay2439 [address] [place]#### PERSMR ####[facility] Qhdevrmdnc1609 [place] [address]DrJeffery Nichols VITAMIN D 25 OHon 04-29-2021 VIT D 25-OH 71.4 ng/mL Normal [facility] Comment on above: Performed By: #### V ITAD ####[facility] Knrmxrknkf[address] [place] [address] [place] VIT D RANGES SEE BELOW Normal [facility] Comment on above: Result Comment: <20 ng/mL Vit D deficient 20 - <30 ng/mL Vit D insufficient 30 - 100 ng/mL Vit D sufficient >100 ng/mL Potential Toxicity Performed By: #### V ITAD ####[facility] Tfnagbsujy[address] [place] [address] [place] POC GLUCOSE LABon 06-30-2020 Glucose [Mass/Vol] 108 mg/dL High 70-100 [facility] Comment on above: Performed By: #### 4 1000, 21123 #### [facility] [address] [facility] [place] [address], [facility] Glucose [Mass/Vol] 165 mg/dL High 70-100 [facility] Comment on above: Performed By: #### 4 1000, 15620 #### [facility] [address] [place] [address], [place] C REACTIVE PROTEINon 020 CRP [Mass/Vol] 27.8 mg/L High 0.0-7.0 [facility] Comment on above: Order Comment: No: D o not add to previous draw Performed By: #### 4 1000, 19976, 99557 #### [facility] [address] [facility]. [address] CBC COMPLETE BLOOD COUNTon 08-29-2019 Erythrocyte distribution width (RBC) [Ratio] 14.3 % Normal 11.5-15.0 [facility] Comment on above: Order Comment: No: D o not add to previous draw Performed By: #### 4 1000, 19005 #### [facility] [address] [facility] [place] [address], [facility] Hematocrit (Bld) [Volume fraction] 34.7 % Low 39.0-50.0 [facility] Comment on above: Order Comment: No: D o not add to previous draw Performed By: #### 4 1000, 86113 #### [facility] [address] [place] [address], [facility] Hemoglobin (Bld) [Mass/Vol] 11.6 g/dL Low 13.0-17.0 [facility] Comment on above: Order Comment: No: D o not add to previous draw Performed By: #### 4 1000, 01454 #### [facility] [address] [facility] [place] [place] [address], [facility] MCH (RBC) [Entitic mass] 35.5 pg High 27.0-33.0 [facility] Comment on above: Order Comment: No: D o not add to previous draw Performed By: #### 4 1000, 05686 #### [facility] [address] [facility] [place] [address], [facility] MCHC (RBC) [Mass/Vol] 33.4 g/dL Normal 32.0-35.0 [facility] Comment on above: Order Comment: No: D o not add to previous draw Performed By: #### 4 1000, 99444 #### [facility] [address] [facility] [place] [place] [address], [facility] MCV (RBC) [Entitic vol] 106.1 fL High 82.0-98.0 [facility] Comment on above: Order Comment: No: D o not add to previous draw Performed By: #### 4 1000, 27222 #### [facility] [address] [facility] [place] [address], [facility] Nucleated RBC/100 WBC (Bld) [Ratio] 0 % Normal 0-0 [facility] Comment on above: Order Comment: No: D o not add to previous draw Performed By: #### 4 1000, 05840 #### [facility] [address] [facility] [place] [address], [facility] PLAT CNT 150 10*3/uL Normal 150-400 [facility] Comment on above: Order Comment: No: D o not add to previous draw Performed By: #### 4 1000, 65452 #### [facility] [address] [place] [address], [facility] RBC (Bld) [#/Vol] 3.27 10*6/uL Low 4.20-5.70 [facility] Comment on above: Order Comment: No: D o not add to previous draw Performed By: #### 4 1000, 31421 #### [facility] [address] [facility] [place] [address], [facility] WBC (Bld) [#/Vol] 5.86 10*3/uL Normal 4.00-10.60 [facility] Comment on above: Order Comment: No: D o not add to previous draw Performed By: #### 4 1000, 58245 #### [facility] [address] [place] [address], [facility] CPKon 06-29-2020 CK [Catalytic activity/Vol] 45 U/L Normal 30-223 [facility] Comment on above: Order Comment: Unkno wn Performed By: #### 9 9909, 48872, 81637, 79592 #### [facility] [address] [place] [address], [facility] CT BRAIN WO CONTRASTon 06-29 CT BRAIN WO CONTRAST [facility] Department of Radiology [address] [place] [address] [phone] Patient Name: CHIKI JUAREZ : 1945 Sex: M Age: Race: White Pt. Location: [id number] Patient Status: I Ordered Date: 06/29/2020 9:20:00 [...] region. Electronically signed: Aleta Armas. Transcribed by: [email or web address], User Resident: Electronically Signed by: ALETA ARMAS @ 06/29/2020 07:16 PM Normal [facility] Comment on above: Order Comment: No: D o not add to previous draw D DIMER TESTon 06-29-2020 D-DIMER TEST 1.44 mcg/mL FEU High 0.27-0.49 [facility] Comment on above: Order Comment: No: D o not add to previous draw Result Comment: D-Di fide values of less than 0.50 ug/ml (FEU) are considered to be a negative predictor of thrombosis. However, the D-Dimer result should be used in conjunction with pretest probability and should not be used alone to diagnose a thrombotic event. Performed By: #### 4 1000, 24229, 68381 #### [facility] [address] [place] [address], [facility] FERRITINon 06-29-2020 Ferritin [Mass/Vol] 271 ng/mL Normal 24-336 [facility] Comment on above: Order Comment: Unkno wn Performed By: #### 9 9909, 61324, 49633, 98590 #### [facility] [address] [place] [address], [facility] LDH BLOODon 06-29-2020 LDH 148 Units/L Normal 140-271 [facility] Comment on above: Order Comment: Unkno wn Performed By: #### 9 9909, 91936, 21146, 31656 #### [facility] [address] [place] [address], [facility] LIPID PROFILEon 06-29-2020 Cholesterol [Mass/Vol] 176 mg/dL Normal 120-200 [facility] Comment on above: Order Comment: No: D o not add to previous draw Result Comment: CHOL ESTEROL REFERENCE RANGE: 20 YEARS AND OLDER CARDIOVASCULAR RISK Less than 200 mg/dl Low Risk 200 to 239 mg/dl Borderline Risk 240 mg/dl and greater High Risk Performed By: #### 4 1000, 89944, 87996 #### [facility] [address] [place] [address], [facility] Cholesterol in HDL [Mass/Vol] 39 mg/dL Normal 23-92 [facility] Comment on above: Order Comment: No: D o not add to previous draw Result Comment: Slig ht variation in normal range could be due to gender and/or age. HDL CHOLESTEROL REFERENCE RANGE: 20 years and older Cardiovascular Risk > or =60 mg/dL Desirable 40 TO 59 mg/dL Low Risk <40 mg/dL High Risk Performed By: #### 4 1000, 50075, 43988 #### [facility] [address] [place] [address], [facility] Cholesterol in LDL [Mass/Vol] 100 mg/dL Normal 0-130 [facility] Comment on above: Order Comment: No: D o not add to previous draw Result Comment: LDL IS A CALCULATION LDL IS ONLY VALID IF THE TRIG IS LESS THAN 400. Performed By: #### 4 1000, , 37751 #### [facility] [address] [place] [address], [facility] Cholesterol.total/Ch olesterol in HDL [Mass ratio] 4.5 {ratio} Normal 0.0-4.5 [facility] Comment on above: Order Comment: No: D o not add to previous draw Performed By: #### 4 1000, , 70741 #### [facility] [address] [facility] [place] [address], [facility] NON-HDL CHOLESTEROL 137 mg/dL Normal [facility] Comment on above: Order Comment: No: D o not add to previous draw Performed By: #### 4 1000, , 35408 #### [facility] [address] [place] [address], [facility] Triglyceride [Mass/Vol] 187 mg/dL High 40-149 [facility] Comment on above: Order Comment: No: D o not add to previous draw Result Comment: TRIG LYCERIDE REFERENCE RANGE: 20 YEARS AND OLDER CARDIOVASCULAR RISK LESS THAN 150 mg/dl LOW RISK 150 TO 199 mg/dl BORDERLINE RISK 200 mg/dl AND GREATER HIGH RISK Performed By: #### 4 1000, 25638, 43206 #### [facility] [address] [place] [address], [place] VLDL CHOL 37 mg/dL Normal 0-40 [facility] Comment on above: Order Comment: No: D o not add to previous draw Performed By: #### 4 1000, 45683, 43045 #### [facility] [address] [place] [address], [place] LIVER BATTERYon 06-29-2020 Albumin [Mass/Vol] 3.4 g/dL Low 3.5-5.7 [facility] Comment on above: Order Comment: Unkno wn Performed By: #### 9 9909, 38990, 10683, 21691 #### [facility] [address] [place] [address], [facility] ALKALINE PHOSPH 60 IU/L Normal 34-104 [facility] Comment on above: Order Comment: Unkno wn Performed By: #### 9 9909, 18813, 26932, 72961 #### [facility] [address] [place] [address], [facility] ALT [Catalytic activity/Vol] 8 U/L Normal 7-52 [facility] Comment on above: Order Comment: Unkno wn Performed By: #### 9 9909, 43075, 44854, 06149 #### [facility] [address] [place] [address], [place] AST [Catalytic activity/Vol] 11 U/L Low 13-39 [facility] Comment on above: Order Comment: Unkno wn Performed By: #### 9 9909, 97034, 51780, 73869 #### [facility] [address] [place] [address], [place] Bilirubin [Mass/Vol] 0.5 mg/dL Normal 0.3-1.0 [facility] Comment on above: Order Comment: Unkno wn Performed By: #### 9 9909, 50266, 20126, 23879 #### [facility] [address] [place] [address], [place] Bilirubin.direct [Mass/Vol] 0.1 mg/dL Normal 0.0-0.2 [facility] Comment on above: Order Comment: Unkno wn Performed By: #### 9 9909, 65671, 47165, 43574 #### [facility] [address] [facility] [place] [address], [facility] Protein [Mass/Vol] 5.8 g/dL Low 6.0-8.3 [facility] Comment on above: Order Comment: Unkno wn Performed By: #### 9 9909, 00493, 09764, 82836 #### [facility] [address] [facility] [place] [address], [place] POC GLUCOSE LABon 06-29-2020 Glucose [Mass/Vol] 112 mg/dL High 70-100 [facility] Comment on above: Performed By: #### 4 1000, 18690 #### [facility] [address] [facility] [place] [address], [place] Glucose [Mass/Vol] 105 mg/dL High 70-100 [facility] Comment on above: Performed By: #### 4 1000, 48729 #### [facility] [address] [facility] [place] [place] [address], [place] Glucose [Mass/Vol] 94 mg/dL Normal 70-100 [facility] Comment on above: Performed By: #### 4 1000, 94005, 34334 #### [facility] [address] [facility] [place] [address], [place] Glucose [Mass/Vol] 121 mg/dL High 70-100 [facility] Comment on above: Performed By: #### 4 1000, 16733 #### [facility] [address] [facility] [place] [place] [address], [place] PORTABLE CHEST 1 VIEWon 06-17 PORTABLE CHEST 1 VIEW [facility] Department of Radiology [address] [place] [phone] Patient Name: CHIKI JUAREZ : 1945 Sex: M Age: Race: White Pt. Location: [id number] Patient Status: I Ordered Date: 06/29/2020 5:45:00 [...] placement. Electronically signed: Aleta Armas. Transcribed by: [id number], User Resident: Electronically Signed by: ALETA ARMAS @ 06/29/2020 08:15 PM Normal [facility] Comment on above: Order Comment: No: D o not add to previous draw BASIC METABOLIC PANELon 06-17 Calcium [Mass/Vol] 8.8 mg/dL Normal 8.6-10.3 [facility] Comment on above: Order Comment: No: D o not add to previous draw Performed By: #### 4 1000, 69924, 91310 #### [facility] [address] [place] [address], [place] Chloride [Moles/Vol] 102 mmol/L Normal 98-107 [facility] Comment on above: Order Comment: No: D o not add to previous draw Performed By: #### 4 1000, 68467, 72087 #### [facility] [address] [place] [address], [place] CO2 [Moles/Vol] 24 mmol/L Normal 21-31 [facility] Comment on above: Order Comment: No: D o not add to previous draw Performed By: #### 4 1000, 94547, 26374 #### [facility] [address] [place] [address], [place] Creatinine [Mass/Vol] 1.31 mg/dL High 0.70-1.30 [facility] Comment on above: Order Comment: No: D o not add to previous draw Performed By: #### 4 1000, , 56671 #### [facility] [address] [place] [address], [place] GFR/1.73 sq M predicted among blacks MDRD (S/P/Bld) [Vol rate/Area] mL/min/{1.73_m2} Normal >60 [facility] Comment on above: Order Comment: No: D o not add to previous draw Result Comment: Calc ulation may not be valid for patients over 70 years Performed By: #### 4 1000, , 33653 #### [facility] [address] [place] [address], [place] GFR/1.73 sq M predicted among non-blacks MDRD (S/P/Bld) [Vol rate/Area] 54 ml/min/1.73sq m Abnormal >60 [facility] Comment on above: Order Comment: No: D o not add to previous draw Result Comment: Calc ulation may not be valid for patients over 70 years Performed By: #### 4 1000, , 91354 #### [facility] [address] [place] [id number], [facility] Glucose [Mass/Vol] 96 mg/dL Normal 70-100 [facility] Comment on above: Order Comment: No: D o not add to previous draw Performed By: #### 4 1000, , 32791 #### [facility] [address] [place] [address], [facility] Potassium [Moles/Vol] 4.3 mmol/L Normal 3.5-5.1 [facility] Comment on above: Order Comment: No: D o not add to previous draw Performed By: #### 4 1000, , 83130 #### [facility] [address] [place] [address], [facility] Sodium [Moles/Vol] 133 mmol/L Low 136-145 [facility] Comment on above: Order Comment: No: D o not add to previous draw Performed By: #### 4 1000, , 12657 #### [facility] [address] [place] [address], [facility] Urea nitrogen [Mass/Vol] 26 mg/dL High 7-25 [facility] Comment on above: Order Comment: No: D o not add to previous draw Performed By: #### 4 1000, , 85435 #### [facility] [address] [facility] [place] [address], [facility] CBC COMPLETE BLOOD COUNT08-28-2019 Erythrocyte distribution width (RBC) [Ratio] 14.4 % Normal 11.5-15.0 [facility] Comment on above: Order Comment: No: D o not add to previous draw Performed By: #### 4 1000, , 69055 #### [facility] [address] [place] [address], [facility] Hematocrit (Bld) [Volume fraction] 35.2 % Low 39.0-50.0 [facility] Comment on above: Order Comment: No: D o not add to previous draw Performed By: #### 4 1000, , 56991 #### [facility] [address] [facility] [place] [address], [facility] Hemoglobin (Bld) [Mass/Vol] 11.8 g/dL Low 13.0-17.0 [facility] Comment on above: Order Comment: No: D o not add to previous draw Performed By: #### 4 1000, , 29461 #### [facility] [address] [facility] [place] [address], [facility] MCH (RBC) [Entitic mass] 35.5 pg High 27.0-33.0 [facility] Comment on above: Order Comment: No: D o not add to previous draw Performed By: #### 4 1000, , 50923 #### [facility] [address] [facility] [address] MCHC (RBC) [Mass/Vol] 33.5 g/dL Normal 32.0-35.0 [facility] Comment on above: Order Comment: No: D o not add to previous draw Performed By: #### 4 999, , 28454 #### [facility] [address] [facility]. [address] MCV (RBC) [Entitic vol] 106.0 fL High 82.0-98.0 [facility] Comment on above: Order Comment: No: D o not add to previous draw Performed By: #### 4 999, , 20581 #### [facility] [address] [facility]. [address] Nucleated RBC/100 WBC (Bld) [Ratio] 0 % Normal 0-0 [facility] Comment on above: Order Comment: No: D o not add to previous draw Performed By: #### 4 1000, , 82986 #### [facility] [address] [facility] [place] [address], [facility] PLAT CNT 158 10*3/uL Normal 150-400 [facility] Comment on above: Order Comment: No: D o not add to previous draw Performed By: #### 4 1000, 20627, 48699 #### [facility] [address] [facility] [place] [address], [facility] RBC (Bld) [#/Vol] 3.32 10*6/uL Low 4.20-5.70 [facility] Comment on above: Order Comment: No: D o not add to previous draw Performed By: #### 4 1000, 62572, 66605 #### [facility] [address] [facility] [place] [address], [facility] WBC (Bld) [#/Vol] 7.25 10*3/uL Normal 4.00-10.60 [facility] Comment on above: Order Comment: No: D o not add to previous draw Performed By: #### 4 1000, 59172, 07568 #### [facility] [address] Cardiovascular Lab Reporton 06-28-2020 Cardiovascular Lab Report [facility] Patient Name: Chiki Juarez [facility] MR #: [id number] Physician: Connor Carrera MD Department of Service Date: 06/28/2020 Medicine Birthdate: 1945 Division of Room #: 3CD 253468 Cardiology Adult Cardiovascular Services [place] [address] Cardiovascular Laboratory Report DUAL CHAMBER PACEMAKER IMPLANT PROCEDURE NOTE DATE OF PROCEDURE: 06/28/2020 PERFORMING PHYSICIAN: Dr. Cnonor Carrera CONSENT: Patient LOCATION: EP Lab PROCEDURE PERFORMED: 1. Implantation of pacemaker ([employer]) 2. Ultrasound guided venous access INDICATIONS: [...] using modified seldinger technique using a 5 English micro-puncture needle on two occasions and 0.24 [...] was made enough for the device. 6 English Safesheaths were placed over the wire. An active fixation [employer] pacing lead was then delivered through the 6Fsheath to the right ventricle. After confirmation of lead position on orthogonal views (PARK and BAHAMIAN) to confirm septal position, the screw was activated, and the lead was placed in the right ventricular mid cavity towards the septum. After confirmation of good sensing parameters, injury pattern and pacing thresholds, 10V pacing was done and no diaphragmatic stimulation was noted. It was then secured in the pocket using three 1-0 Silk sutures. Then an active fixation [employer] lead was delivered through the 6Fsheath to the right atrial appendage. After confirmation of lead position on orthogonal views (PARK and BAHAMIAN), the screw was activated. After confirmation of [...] immediate procedural complications were noted. Device info: [employer] Accolade MRI EL Model# L331 Serial# [id number] RA lead: Model# INGLISSETTEITY 7740 (45cms) Serial# [id number] Sensin.7mV Threshold: 0.9V@0.4ms Impedance: 666Ohms RV lead: Model# INGLISSETTEITY 7841(52cms) Serial# [id number] Sensin.1mV Threshold: 0.4V@0.4ms Impedance: 746Ohms POST PROCEDURE [...] Carrera MD Date Trans: 06/28/2020 03:33 P/alondra [id number] cc: Will Sherwood M.D. [address] [place] [phone] Normal [facility] MAGNESIUM BLOODon 06-28-2020 Magnesium [Mass/Vol] 2.1 mg/dL Normal 1.9-2.7 [facility] Comment on above: Order Comment: No: D o not add to previous draw Performed By: #### 4 1000, 72730, 78897 #### [facility] [address] [address], [facility] PHOSPHORUS BLOODon 0 Phosphate [Mass/Vol] 3.7 mg/dL Normal 2.5-5.0 [facility] Comment on above: Order Comment: No: D o not add to previous draw Performed By: #### 4 1000, 62140, 81795 #### [facility] [address] [place] [address], [facility] POC GLUCOSE LABon 06-28-2020 Glucose [Mass/Vol] 93 mg/dL Normal 70-100 [facility] Comment on above: Performed By: #### 4 1000, 33080 #### [facility] [address] [place] [address], [place] Glucose [Mass/Vol] 90 mg/dL Normal 70-100 [facility] Comment on above: Performed By: #### 4 1000, 47712 #### [facility] [address] [place] [address], [place] Glucose [Mass/Vol] 97 mg/dL Normal 70-100 [facility] Comment on above: Performed By: #### 4 1000, 89453 #### [facility] [address] [place] [address], [place] Glucose [Mass/Vol] 99 mg/dL Normal 70-100 [facility] Comment on above: Performed By: #### 4 1000, 80876 #### [facility] [address] [place] [address], [facility] APTTon 06-27-2020 aPTT Coag (Bld) [Time] 34.8 s Normal 25.0-35.0 [facility] Comment on above: Order Comment: No: [...] THIS PURPOSE. Performed By: #### 4 1000, 89985 #### [facility] [address] [place] [address], [facility] BASIC METABOLIC PANELon 11- Calcium [Mass/Vol] 9.1 mg/dL Normal 8.6-10.3 [facility] Comment on above: Order Comment: No: D o not add to previous draw Performed By: #### 4 1000, 99266, 30312 #### [facility] [address] [place] [address], [place] Chloride [Moles/Vol] 104 mmol/L Normal 98-107 [facility] Comment on above: Order Comment: No: D o not add to previous draw Performed By: #### 4 1000, 33098, 64210 #### [facility] [address] [place] [address], [place] CO2 [Moles/Vol] 23 mmol/L Normal 21-31 [facility] Comment on above: Order Comment: No: D o not add to previous draw Performed By: #### 4 1000, 49339, 53230 #### [facility] [address] [place] [address], [place] Creatinine [Mass/Vol] 1.21 mg/dL Normal 0.70-1.30 [facility] Comment on above: Order Comment: No: D o not add to previous draw Performed By: #### 4 1000, 30550, 76486 #### [facility] [address] [place] [address], [place] GFR/1.73 sq M predicted among blacks MDRD (S/P/Bld) [Vol rate/Area] mL/min/{1.73_m2} Normal >60 [facility] Comment on above: Order Comment: No: D o not add to previous draw Result Comment: Calc ulation may not be valid for patients over 70 years Performed By: #### 4 1000, 59392, 31996 #### [facility] [address] [place] [address], [place] GFR/1.73 sq M predicted among non-blacks MDRD (S/P/Bld) [Vol rate/Area] 59 ml/min/1.73sq m Abnormal >60 [facility] Comment on above: Order Comment: No: D o not add to previous draw Result Comment: Calc ulation may not be valid for patients over 70 years Performed By: #### 4 1000, , 01810 #### [facility] [address] [place] [address], [place] Glucose [Mass/Vol] 132 mg/dL High 70-100 [facility] Comment on above: Order Comment: No: D o not add to previous draw Performed By: #### 4 1000, , 62459 #### [facility] [address] [place] [address], [place] Potassium [Moles/Vol] 5.2 mmol/L High 3.5-5.1 [facility] Comment on above: Order Comment: No: D o not add to previous draw Performed By: #### 4 1000, , 34667 #### [facility] [address] [place] [address], [place] Sodium [Moles/Vol] 135 mmol/L Low 136-145 [facility] Comment on above: Order Comment: No: D o not add to previous draw Performed By: #### 4 1000, , 38602 #### [facility] [address] [place] [address], [place] Urea nitrogen [Mass/Vol] 21 mg/dL Normal 7-25 [facility] Comment on above: Order Comment: No: D o not add to previous draw Performed By: #### 4 1000, , 66902 #### [facility] [address] [place] [address], [place] C REACTIVE PROTEINon 11-11-2 020 CRP [Mass/Vol] 40.5 mg/L High 0.0-7.0 [facility] Comment on above: Order Comment: No: D o not add to previous draw Performed By: #### 4 1000, , 73576 #### [facility] [address] CBC W/DIFFon 06-27-2020 ABS BASOPHILS 0.0 10*3/uL Normal 0.0-0.2 [facility] Comment on above: Order Comment: No: D o not add to previous draw Performed By: #### 4 1000, 30487 #### [facility] [address] [place] [address], [facility] ABS NEUTROPHILS 4.5 10*3/uL Normal 1.6-7.6 [facility] Comment on above: Order Comment: No: D o not add to previous draw Performed By: #### 4 1000, 76870 #### [facility] [address] [place] [address], [facility] Basophils/100 WBC (Bld) 0.0 % Normal 0.0-1.0 [facility] Comment on above: Order Comment: No: D o not add to previous draw Performed By: #### 4 1000, 26005 #### [facility] [address] [place] [address], [facility] Eosinophils (Bld) [#/Vol] 0.0 10*3/uL Normal 0.0-0.5 [facility] Comment on above: Order Comment: No: D o not add to previous draw Performed By: #### 4 1000, 09248 #### [facility] [address] [place] [address], [facility] Eosinophils/100 WBC (Bld) 0.0 % Normal 0.0-6.0 [facility] Comment on above: Order Comment: No: D o not add to previous draw Performed By: #### 4 1000, 92769 #### [facility] [address] [place] [address], [facility] Erythrocyte distribution width (RBC) [Ratio] 14.1 % Normal 11.5-15.0 [facility] Comment on above: Order Comment: No: D o not add to previous draw Performed By: #### 4 1000, 92446 #### [facility] [address] [place] [address], [facility] GIANT PLATELETS Present Normal [facility] Comment on above: Order Comment: No: D o not add to previous draw Performed By: #### 4 1000, 65623 #### [facility] [address] [place] [address], [place] Hematocrit (Bld) [Volume fraction] 36.0 % Low 39.0-50.0 [facility] Comment on above: Order Comment: No: D o not add to previous draw Performed By: #### 4 1000, 42182 #### [facility] [address] [place] [address], [place] Hemoglobin (Bld) [Mass/Vol] 11.8 g/dL Low 13.0-17.0 [facility] Comment on above: Order Comment: No: D o not add to previous draw Performed By: #### 4 1000, 10990 #### [facility] [address] [place] [address], [facility] Lymphocytes (Bld) [#/Vol] 0.5 10*3/uL Low 1.2-4.0 [facility] Comment on above: Order Comment: No: D o not add to previous draw Performed By: #### 4 1000, 34350 #### [facility] [address] [place] [address], [place] Lymphocytes/100 WBC (Bld) 8.2 % Low 20.0-45.0 [facility] Comment on above: Order Comment: No: D o not add to previous draw Performed By: #### 4 1000, 75576 #### [facility] [address] [place] [address], [place] MCH (RBC) [Entitic mass] 35.2 pg High 27.0-33.0 [facility] Comment on above: Order Comment: No: D o not add to previous draw Performed By: #### 4 1000, 79377 #### [facility] [address] MCHC (RBC) [Mass/Vol] 32.8 g/dL Normal 32.0-35.0 [facility] Comment on above: Order Comment: No: D o not add to previous draw Performed By: #### 4 1000, 73586 #### [facility] [address] [place] [address], [facility] MCV (RBC) [Entitic vol] 107.5 fL High 82.0-98.0 [facility] Comment on above: Order Comment: No: D o not add to previous draw Performed By: #### 4 1000, 89852 #### [facility] [address] [facility]. [address] METAMYELO 3.7 % High 0.0-0.0 [facility] Comment on above: Order Comment: No: D o not add to previous draw Performed By: #### 4 1000, 38230 #### [facility] [address] [facility] [place] [address], [facility] Monocytes (Bld) [#/Vol] 0.5 10*3/uL Normal 0.1-1.0 [facility] Comment on above: Order Comment: No: D o not add to previous draw Performed By: #### 4 1000, 43073 #### [facility] [address] [facility] [place] [address], [facility] MONOS 9.2 % Normal 5.0-12.0 [facility] Comment on above: Order Comment: No: D o not add to previous draw Performed By: #### 4 1000, 15306 #### [facility] [address] [facility] [place] [address], [facility] MYELOS 3.7 % High 0.0-0.0 [facility] Comment on above: Order Comment: No: D o not add to previous draw Performed By: #### 4 1000, 26952 #### [facility] [address] [facility] [place] [address], [facility] Neutrophils/100 WBC (Bld) 75.2 % High 40.0-72.0 [facility] Comment on above: Order Comment: No: D o not add to previous draw Performed By: #### 4 1000, 21871 #### [facility] [address] [place] [address], [place] NRBC SCAN Present Normal [facility] Comment on above: Order Comment: No: D o not add to previous draw Performed By: #### 4 1000, 24510 #### [facility] [address] [place] [address], [facility] Nucleated RBC/100 WBC (Bld) [Ratio] 0 % Normal 0-0 [facility] Comment on above: Order Comment: No: D o not add to previous draw Performed By: #### 4 1000, 32229 #### [facility] [address] [place] [address], [place] PLAT CNT 153 10*3/uL Normal 150-400 [facility] Comment on above: Order Comment: No: D o not add to previous draw Performed By: #### 4 1000, 58167 #### [facility] [address] [place] [address], [place] RBC (Bld) [#/Vol] 3.35 10*6/uL Low 4.20-5.70 [facility] Comment on above: Order Comment: No: D o not add to previous draw Performed By: #### 4 1000, 47000 #### [facility] [address] [place] [address], [place] WBC (Bld) [#/Vol] 5.92 10*3/uL Normal 4.00-10.60 [facility] Comment on above: Order Comment: No: D o not add to previous draw Performed By: #### 4 1000, 45457 #### [facility] [address] [place] [address], [place] CPKon 06-27-2020 CK [Catalytic activity/Vol] 90 U/L Normal 30-223 [facility] Comment on above: Order Comment: No: D o not add to previous draw Performed By: #### 4 1000, 50599, 19678 #### [address] [address], [facility] CTA HEADon 06-27-2020 CTA HEAD [facility] Department of Radiology [address] [place] [phone] Patient Name: CHIKI JUAREZ : 1945 Sex: M Age: Race: White Pt. Location: [id number] Patient Status: I Ordered Date: 06/27/2020 9:05:00 [...] achievable Electronically signed: Ashu García. Transcribed by: [email or web address], User Resident: Electronically Signed by: ASHU GARCÍA @ 06/27/2020 01:12 PM Normal [facility] Comment on above: Order Comment: No: D o not add to previous draw CTA NECKon 06-27-2020 CTA NECK [facility] Department of Radiology [address] [place] [id number] Patient Name: CHIKI JUAREZ : 1945 Sex: M Age: Race: White Pt. Location: [id number] Patient Status: I Ordered Date: 06/27/2020 9:05:00 [...] viewed on a separate workstation. The [place] Symptomatic Carotid Endarterectomy Trial (NASCET) method for [...] achievable Electronically signed: Ashu García. Transcribed by: [email or web address], User Resident: Electronically Signed by: ASHU GARCÍA @ 06/27/2020 01:08 PM Normal [facility] D DIMER TESTon 06-27-2020 D-DIMER TEST 0.39 mcg/mL FEU Normal 0.27-0.49 [facility] Comment on above: Order Comment: No: D o not add to previous draw Result Comment: D-Di fide values of less than 0.50 ug/ml (FEU) are considered to be a negative predictor of thrombosis. However, the D-Dimer result should be used in conjunction with pretest probability and should not be used alone to diagnose a thrombotic event. Performed By: #### 4 1000, 40000 #### [facility] [address] [place] [address], [facility] FERRITINon 06-27-2020 Ferritin [Mass/Vol] 250 ng/mL Normal 24-336 [facility] Comment on above: Order Comment: No: D o not add to previous draw Performed By: #### 4 1000, , 96246 #### [facility] [address] [place] [address], [facility] HEMOGLOBIN A1Con 06-27-2020 HbA1c (Bld) [Mass fraction] 134 mmol/L Normal [facility] Comment on above: Order Comment: No: D o not add to previous draw Performed By: #### 4 1000, , 39502 #### [facility] [address] [place] [address], [facility] HbA1c (Bld) [Mass fraction] 6.3 % High 4.0-6.0 [facility] Comment on above: Order Comment: No: D o not add to previous draw Performed By: #### 4 1000, , 70778 #### [facility] [address] [place] [address], [facility] LDH BLOODon 06-27-2020 LDH 213 Units/L Normal 140-271 [facility] Comment on above: Order Comment: No: D o not add to previous draw Performed By: #### 4 1000, , 82545 #### [facility] [address] [place] [address], [facility] LIVER BATTERYon 06-27-2020 Albumin [Mass/Vol] 3.5 g/dL Normal 3.5-5.7 [facility] Comment on above: Order Comment: No: D o not add to previous draw Performed By: #### 4 1000, 62809, 41672 #### [facility] [address] [place] [address], [place] ALKALINE PHOSPH 62 IU/L Normal 34-104 [facility] Comment on above: Order Comment: No: D o not add to previous draw Performed By: #### 4 1000, , 97784 #### [facility] [address] [place] [address], [place] ALT [Catalytic activity/Vol] 11 U/L Normal 7-52 [facility] Comment on above: Order Comment: No: D o not add to previous draw Performed By: #### 4 1000, , 27140 #### [facility] [address] [place] [address], [place] AST [Catalytic activity/Vol] 10 U/L Low 13-39 [facility] Comment on above: Order Comment: No: D o not add to previous draw Performed By: #### 4 1000, , 70549 #### [facility] [address] [place] [address], [place] Bilirubin [Mass/Vol] 0.5 mg/dL Normal 0.3-1.0 [facility] Comment on above: Order Comment: No: D o not add to previous draw Performed By: #### 4 1000, , 11402 #### [facility] [address] [place] [address], [place] Bilirubin.direct [Mass/Vol] 0.2 mg/dL Normal 0.0-0.2 [facility] Comment on above: Order Comment: No: D o not add to previous draw Performed By: #### 4 1000, , 82962 #### [facility] [address] [place] [address], [place] Protein [Mass/Vol] 6.0 g/dL Normal 6.0-8.3 [facility] Comment on above: Order Comment: No: D o not add to previous draw Performed By: #### 4 1000, , 28267 #### [facility] [address] [place] [address], [place] MAGNESIUM BLOODon 06-27-2020 Magnesium [Mass/Vol] 2.3 mg/dL Normal 1.9-2.7 [facility] Comment on above: Order Comment: No: D o not add to previous draw Performed By: #### 4 1000, 12662, 51043 #### [facility] [address] [place] [address], [facility] POC GLUCOSE LABon 06-27-2020 Glucose [Mass/Vol] 103 mg/dL High 70-100 [facility] Comment on above: Performed By: #### 4 1000, 75552 #### [facility] [address] [place] [address], [facility] Glucose [Mass/Vol] 100 mg/dL Normal 70-100 [facility] Comment on above: Performed By: #### 4 1000, [id number] #### [facility] [address] [place] [address], [facility] POTASSIUM BLOODon 06-27-2020 Potassium [Moles/Vol] 4.5 mmol/L Normal 3.5-5.1 [facility] Comment on above: Order Comment: No: D o not add to previous draw Performed By: #### 4 1406 #### [facility] [address] [place] [address], [facility] PROTHROMBIN TIMEon 0 INR Coag (PPP) [Relative time] 1.05 {INR} Normal 0.91-1.16 [facility] Comment on above: Order Comment: No: [...] CHEST 1995;108:[id number]. Performed By: #### 4 1000, [id number] #### [facility] [address] [facility]. [address] PT Coag (PPP) [Time] 13.7 s Normal 12.3-14.8 [facility] Comment on above: Order Comment: No: D o not add to previous draw Result Comment: ALL RESULTS MUST BE INTERPRETED WITH RESPECT TO BLOOD DRAWING ARTIFACT OR DILUTION ERROR OF ANTICOAGULANT AT THE TIME OF SAMPLING. Performed By: #### 4 1000, [id number] #### [facility] [address] [facility]. [address] TSH3 WITH REFLEX FT4on 06-27 TSH 3RD GENERATION 0.86 uIU/mL Normal 0.34-5.60 [facility] Comment on above: Performed By: #### 4 1000, [id number], [id number] #### [facility] [address] [facility]. [address] VITAMIN B12on 06-27-2020 Cobalamin (Vitamin B12) [Mass/Vol] 3006 pg/mL High 180-914 [facility] Comment on above: Result Comment: REFE RENCE RANGES: 180-914 pg/mL Normal 145-179 pg/mL Indeterminate <145 pg/mL Deficient Performed By: #### 4 1000, [id number], [id number] #### [facility] [address] [facility]. [address] PHOSPHORUS BLOODon 0 Phosphate [Mass/Vol] 3.2 mg/dL Normal 2.5-5.0 [facility] Comment on above: Order Comment: No: D o not add to previous draw Performed By: #### 4 1000, [id number] #### [facility] [address] [place] [address], [facility] TROPONIN-Ion 06-26-2020 Troponin I.cardiac [Mass/Vol] 0.01 ng/mL Normal 0.00-0.04 [facility] Comment on above: Order Comment: No: D o not add to previous draw Result Comment: REFE RENCE RANGES: 0.00 - 0.04 ng/ml NORMAL 0.05 - 0.50 ng/ml INDETERMINATE > 0.50 ng/ml CONSISTENT WITH AN M.I. Performed By: #### 4 1000, [id number] #### [facility] [address] [place] [address], [facility] Vital Signs Date Time Vital Sign Value Performing Clinician Facility 03-09-2023 10:50-0400 Blood Pressure Location Oni MCKEON [facility] 03-09-2023 10:50-0400 Diastolic blood pressure 70 mm[Hg] Oni MCKEON [facility] 03-09-2023 10:50-0400 Heart rate 71 /min Oni MCKEON [facility] 03-09-2023 10:50-0400 Respiratory rate 16 /min Oni MCKEON [facility] 03-09-2023 10:50-0400 Systolic blood pressure 109 mm[Hg] Oni MCKEON [facility] 01-09-2022 13:00-0400 Body height 172.7 cm Hosea Herrera MD Work Phone: [facility] 01-09-2022 13:00-0400 Body temperature 97.81 [degF] Hosea Herrera MD Work Phone: [facility] 01-09-2022 13:00-0400 Body weight 100.61 kg Hosea Herrera MD Work Phone: [facility] 01-09-2022 13:00-0400 Diastolic blood pressure 68 mm[Hg] Hosea Herrera MD Work Phone: [facility] 01-09-2022 13:00-0400 Heart rate 93 /min Hosea Herrera MD Work Phone: [facility] 01-09-2022 13:00-0400 Respiratory rate 18 /min Hosea Herrera MD Work Phone: [facility] 01-09-2022 13:00-0400 SaO2% (BldA) [Mass fraction] 93 % Hosea Herrera MD Work Phone: [facility] 01-09-2022 13:00-0400 Systolic blood pressure 95 mm[Hg] Hosea Herrera MD Work Phone: [facility] 11-19-2021 10:19-0400 Blood Pressure Location Romeo Vidal Jr. [facility] 11-19-2021 10:19-0400 Diastolic blood pressure 60 mm[Hg] Romeo Vidal Jr. [facility] 11-19-2021 10:19-0400 Heart rate 80 /min Romeo Vidal Jr. [facility] 11-19-2021 10:19-0400 Respiratory rate 16 /min Romeo Vidal Jr. [facility] 11-19-2021 10:19-0400 Systolic blood pressure 113 mm[Hg] Romeo Vidal Jr. [facility] Encounters Encounter Date Encounter Type Care Provider Facility Start: 02-14-2025 ambulatory Pito Patterson Facility :[facility] Start: 05-17-2024 ambulatory Pito Patterson Facility :[facility] Start: 03-14-2024 ambulatory Oni Sewell MIKE Victor ty: Frannie Start: 02-15-2024 End: 02-15-2024 ambulatory [facility] Start: 02-02-2024 Telephone encounter Valerie Wallace Hematology/Oncology Comment on above: Results Start: 01-21-2024 End: 01-21-2024 ambulatory PITO PATTERSON Facility:[facility] Start: 12-01-2023 End: 12-01-2023 ambulatory Pito Patterson Facility:[facility] Start: 10-19-2023 End: 10-19-2023 ambulatory [facility] Start: 10-19-2023 End: 10-19-2023 Lab Drop off Pito Patterson [facility] Start: 10-19-2023 End: 10-19-2023 ambulatory Pito Patterson Facility:[facility] Start: 09-17-2023 End: 09-17-2023 ambulatory [facility] Start: 09-09-2023 End: 09-09-2023 ambulatory [facility] Start: 08-24-2023 End: 08-24-2023 ambulatory Pito Patterson Facility:[facility] Start: 08-03-2023 End: 08-03-2023 ambulatory Pito Patterson Facility:[facility] Start: 07-30-2023 End: 07-30-2023 ambulatory PITO PATTERSON Facility:[facility] Start: 07-28-2023 End: 07-28-2023 ambulatory [facility] Start: 07-23-2023 End: 07-23-2023 ambulatory PITO PATTERSON Facility:[facility] Start: 07-16-2023 End: 07-16-2023 ambulatory BERT ACEVEDO Not Available Start: 05-28-2023 End: 05-28-2023 ambulatory Pito Patterson Facility:[facility] Start: 05-21-2023 End: 05-21-2023 ambulatory [facility] Start: 05-11-2023 End: 05-11-2023 ambulatory Pito Patterson Facility:[facility] Start: 03-31-2023 End: 03-31-2023 ambulatory [facility] Start: 03-31-2023 End: 03-31-2023 ambulatory Oni MCKEON Facility:[facility] Start: 03-31-2023 End: 03-31-2023 Patient encounter procedure Oni MCKE[facility] Start: 03-09-2023 End: 03-09-2023 ambulatory Oni MCKEON Facility:[facility] Start: 03-09-2023 End: 03-09-2023 ambulatory Oni CMKEON Facility:[facility] Start: 03-09-2023 End: 03-09-2023 Patient encounter procedure Oni MCKEON [facility] Start: 01-26-2023 End: 01-26-2023 Lab Drop off [facility] Start: 11-28-2022 End: 11-28-2022 ambulatory [facility] Start: 08-05-2022 Telephone encounter Aby Hernandez RN Hematology/Oncology Comment on above: Results Start: 07-24-2022 Telephone encounter Tyler cadena MD Work Phone: [facility] Comment on above: Appointment Start: 04-22-2022 End: 04-23-[address] WILL SHERWOOD Facility: Start: 04-16-2022 End: 04-17-[address] DANIELLA [...] procedure Romeo Vidal Jr. [facility] Start: 09-24-2021 End: 09-25-[address] WILL SHERWOOD Facility:[facility] Start: 09-10-2021 End: 09-11-[address] WILL SHERWOOD Facility:[facility] Start: 09-09-2021 End: 01-25-[address] WILL SHERWOOD Facility:[facility] Start: 09-06-2021 End: 10-10-[address] WILL SHERWOOD Facility:[facility] Start: 09-05-2021 End: 09-06-[address] DOCTOR SANCHES Facility:[facility] Start: 07-30-2021 End: 07-31-[address] DOCTOR SANCHES Facility:[facility] Start: 07-30-2021 End: 08-16-[address] DOCTOR SANCHES Facility:[facility] Start: 07-24-2021 End: 07-25-2021 ambulatory NANDINI NGO Facility:[facility] Start: 06-25-2021 End: 06-26-2021 ambulatory PITO LILLI PATTERSON Facility:[facility] Start: 06-07-2021 End: 06-08-[address] WILL SHERWOOD Facility:[facility] Start: 05-16-2021 End: 05-16-[address] TAMIKO PAREDES Facility:[facility] Start: 05-15-2021 End: 05-16-[address] WILL SHERWOOD Facility:[facility] Start: 05-14-2021 End: 05-15-[address] WILL SHERWOOD Facility:[facility] Start: 04-29-2021 End: 04-30-[address] WILL SHERWOOD Facility:[facility] Start: 06-26-2020 End: 06-30-2020 Evaluation and management of inpatient CRESCENCIO FLETCHER Facility:[facility] Procedures Date Procedure Procedure Detail Performing Clinician Start: 01-09-2022 Adult depression scr eening assessment Hosea Herrera MD Work Phone: Start: 01-07-[address] WILL LINDA Comment on above: Performed By: #### P SAD ####[id number] [place], [place] [address]YcJeffery Nichols Start: 06-28-2020 INSERT PACE. DUAL CH [...] Treatment Date Care Activity Detail Author Start: 05-09-2030 Urine microalbumin profile DTaP,Tdap,Td Vaccine (2 - Td or Tdap) [facility] Start: 01-20-2027 Diabetes Screening Diabetes Screenin g [facility] Start: 07-18-2025 DIABETES SCREEN DIABETES SCREEN [facility] Start: 01-09-2025 DIABETES SCREEN DIABETES SCREEN [facility] Start: 04-19-2024 End: 04-19-2024 ambulatory 04/19/2024 2:30 PM EDT Visit (SP) Office Hematology/Oncology [address] [place] [address] Tyler Draper MD [address] [place] [address] 6 month lab Hematology/Oncology Comment on above: 6 month lab Start: 04-19-2024 End: 04-19-2024 Patient encounter procedure 04/19/2024 2:15 PM EDT Office Visit [facility] [address] [place] [address] 6 month lab [facility] Comment on above: 6 month lab Start: 08-27-2023 Covid-19 Vaccine () Covid-19 Vaccine () [facility] Start: 08-17-2023 Advance Directive Discussion Advance Directive Discussion [facility] Start: 08-17-2023 Behavioral Health Screening Behavioral Health Screening [facility] Start: 01-09-2023 Adult depression screening assessment DEPRESSION SCREENING [facility] Start: 07-18-2022 End: 09-17-2022 CBC panel - Blood by Automated count CBC Lab Routine MGUS (monoclonal gammopathy of unknown significance) Expected: 07/18/2022 (Approximate), Expires: 09/17/2022 [facility] Work Phone: Comment on above: Expected: 07/18/2022 (Approximate), Expires: 09/17/2022 Start: 07-18-2022 End: 09-17-2022 Comprehensive metabolic 2000 panel - Serum or Plasma COMP METABOLIC PANEL Lab Routine MGUS (monoclonal gammopathy of unknown significance) Expected: 07/18/2022 (Approximate), Expires: 09/17/2022 [facility] Work Phone: Comment on above: Expected: 07/18/2022 (Approximate), Expires: 09/17/2022 Start: 07-18-2022 End: 09-17-2022 MONOCLONAL PROTEIN, SERUM (BLOOD) MONOCLONAL PROTEIN, SERUM (BLOOD) Lab Routine MGUS (monoclonal gammopathy of unknown significance) Expected: 07/18/2022 (Approximate), Expires: 09/17/2022 [facility] Work Phone: Comment on above: Expected: 07/18/2022 (Approximate), Expires: 09/17/2022 Start: 07-18-2022 End: 09-17-2022 PROTEIN ELECTROPHORESIS SERUM W/INTERP PROTEIN ELECTROPHORESIS SERUM W/INTERP Lab Routine MGUS (monoclonal gammopathy of unknown significance) Expected: 07/18/2022 (Approximate), Expires: 09/17/2022 [facility] Work Phone: Comment on above: Expected: 07/18/2022 (Approximate), Expires: 09/17/2022 Start: 05-06-2022 COVID-19 VACCINE (5 - Booster for Pfizer series) COVID-19 VACCINE (5 - Booster for Pfizer series) [facility] Start: 04-17-2022 Influenza vaccination INFLUENZA (#1) [facility] Start: 09-25-2021 COVID-19 VACCINE (4 - Booster for Pfizer series) COVID-19 VACCINE (4 - Booster for Pfizer series) [facility] Start: 08-17-2021 ADVANCE DIRECTIVE DISCUSSION ADVANCE DIRECTIVE DISCUSSION [facility] Start: 08-17-2021 DEPRESSION ASSESSMENT DEPRESSION ASS ESSMENT [facility] Start: 2007 RSV Vaccine (1 - 1-d ose 60+ series) RSV Vaccine (1 - 1-dose 60+ series) [facility] Start: 1997 SHINGRIX VACCINE (1 of 2) [place] GRIX VACCINE (1 of 2) [facility] Start: 1992 COLOGUARD (FIT-DNA) COLOGUARD (FIT-D NA) [facility] Start: 1992 Colonoscopy COLONOSCOPY [facility] Start: 1992 COLORECTAL CANCER SCREENING COLORECTAL CANCER SCREENING [facility] Start: [address] COLONOGRAPHY [facility] Start: 1992 FECAL OCCULT BLOOD FECAL OCCULT BLOO D [facility] Start: 1992 SIGMOIDOSCOPY SIGMOIDOSCOPY [facility] Start: 1982 LIPID SCREEN LIPID SCREEN [facility] Start: 1966 SHINGRIX VACCINE (1 of 2) [place] GRIX VACCINE (1 of 2) [facility] Start: 1966 Urine microalbumin profile DTAP,TDAP,TD (1 - Tdap) [facility] Start: 1965 HEPATITIS C SCREENING HEPATITIS C [facility] Start: 1965 Hepatitis C screening Hepatitis C [facility] Start: 1947 ABDOMINAL AORTIC ANE URYSM SCREENING ABDOMINAL AORTIC ANEURYSM SCREENING [facility] CBC W Auto Different ial panel - Blood CBC + DIFF Lab Routine B12 deficiency Diffuse large B-cell lymphoma, unspecified body region (HCC) 01/09/2022 1:[address] [facility] Work Phone: [facility] Immunizations Immunization Date Immunization Notes Care Provider Fa jose 07-02-2023 SARS-CoV-2 mRNA (tozinameran 5y-11y) vaccine Pito Patterson [facility] Comment on above: Result Comment: covi d 19 eneida sucrose pfizer 05-11-2023 influenza, high dose seasonal, preservative-free Pito Patterson [facility] 03-11-2022 SARS-CoV-2 mRNA (imvmbkccnvb-blip-brzfho e) vaccine Marlys Corwin [facility] 06-25-2021 SARS-CoV-2 (COVID-19 ) mRNA BNT-162b2 vax Marlys Corwin [facility] 05-24-2021 influenza virus vacc ine, unspecified formulation Marlys Corwin [facility] 11-13-2020 COVID-19 vaccine, ag e 12+ yr (PFIZER-BIONTECH - PURPLE TOP) Hosea Herrera MD Work Phone: [facility] 10-22-2020 COVID-19 vaccine, ag e 12+ yr (PFIZER-BIONTECH - PURPLE TOP) Hosea Herrera MD Work Phone: [facility] 07-24-2020 zoster vaccine recombinant Marlys Corwin [facility] 05-09-2020 influenza virus vacc ine, unspecified formulation Mralys Corwin [facility] 05-09-2020 tetanus toxoid, redu juvencio diphtheria toxoid, and acellular pertussis vaccine, adsorbed Marlys Corwin [facility] 05-09-2020 zoster vaccine recombinant Marlys Corwin [facility] 04-16-2019 influenza virus vacc ine, unspecified formulation Marlys Corwin [facility] 05-25-2018 influenza virus vacc ine, unspecified formulation Marlys Corwin [facility] 05-25-2018 influenza, injectabl e, quadrivalent, preservative free Hosea Herrear MD Work Phone: [facility] 05-25-2018 pneumococcal polysaccharide vaccine, 23 valent Hosea Herrera MD Work Phone: [facility] 04-26-2018 influenza virus vacc ine, unspecified formulation Marlys Corwin [facility] 04-26-2018 influenza, high dose seasonal, preservative-free Hosea Herrera MD Work Phone: [facility] 04-26-2018 pneumococcal polysaccharide vaccine, 23 valent Hosea Herrera MD Work Phone: [facility] 08-04-2017 influenza virus vacc ine, unspecified formulation Marlys Corwin [facility] 08-04-2017 influenza, high dose seasonal, preservative-free Hosea Herrera MD Work Phone: [facility] 08-04-2017 pneumococcal conjuga te vaccine, 13 valent Hosea Herrera MD Work Phone: [facility] influenza vaccine qs 240 mcg, Patients 65 years and older,, PF, (FLUZONE HIGHDOSE QUAD 20-21 PF) 240 mcg/0.7 mL injection Hosea Herrera MD Work Phone: [facility] Comment on above: Fluzone High-Dose Qu ad 2020-21 (PF) 240 mcg/0.7 mL IM syringe PHARMACY ADMINISTERED influenza vaccine qs 240 mcg, Patients 65 years and older,, PF, (FLUZONE HIGHDOSE QUAD 20-21 PF) 240 mcg/0.7 mL injection Tyler Draper MD Work Phone: [facility] Comment on above: Fluzone High-Dose Qu ad 2020-21 (PF) 240 mcg/0.7 mL IM syringe PHARMACY ADMINISTERED influenza vaccine qs 240 mcg, Patients 65 years and older,, PF, (FLUZONE HIGHDOSE QUAD 20-21 PF) 240 mcg/0.7 mL injection Valerie Mayes RN [facility] Payers Date Payer Category Payer Medicare [id number] 2014 Medicare AETNA MEDICARE A ETNA MEDICARE PPO [id number] 2014-Present [phone] [facility] [id number] [place] [address] [facility] [id number] 2014 Medicare [id number] 1959 Medicare [id number] 1959 Private Health Insurance [facility] [id number] Self-pay 1947 Unknown [id number] 2.16.840.1.150351.3.579.2.6 47 1947 Unknown [id number] 2.16.840.1.908597.3.579.2.5 93 1947 Unknown [id number] 2.16.840.1.138113.3.579.2.5 93 1947 Unknown [id number] 2.16.840.1.872038.3.579.2.5 93 1947 Unknown [id number] 2.16.840.1.132963.3.579.2.5 93 1947 Unknown [id number] 2.16.840.1.150655.3.579.2.5 93 1947 Unknown [id number] 2.16.840.1.627745.3.579.2.5 93 1947 Unknown [id number] 2.16.840.1.204739.3.579.2.5 93 1947 Unknown [id number] 2.16.840.1.368830.3.579.2.5 93 1947 Unknown [id number] 2.16.840.1.617421.3.579.2.5 93 1947 Unknown [id number] 2.16.840.1.673647.3.579.2.5 93 1947 Unknown [id number] 2.16.840.1.029949.3.579.2.5 93 1947 Unknown [id number] 2.16.840.1.492451.3.579.2.5 93 1947 Unknown [id number] 2.16.840.1.569009.3.579.2.5 93 1947 Unknown [id number] 2.16.840.1.323706.3.579.2.5 93 1947 Unknown [id number] 2.16.840.1.777345.3.579.2.5 93 1947 Unknown [id number] 2.16.840.1.074100.3.579.2.5 93 1947 Unknown [id number] 2.16.840.1.489833.3.579.2.5 93 1947 Unknown [id number] 2.16.840.1.644281.3.579.2.5 93 1947 Unknown [id number] 2.16.840.1.630190.3.579.2.5 93 1947 Unknown [id number] 2.16.840.1.915611.3.579.2.5 93 1947 Unknown [id number] 2.16.840.1.007739.3.579.2.1 259 1947 Unknown [id number] 2.16.840.1.509301.3.579.2.7 27 1947 Unknown [id number] 2.16.840.1.193133.3.579.2.7 27 1947 Unknown [id number] 2.16.840.1.279644.3.579.2.7 27 1947 Unknown [id number] 2.16.840.1.233286.3.579.2.7 27 1947 Unknown [id number] 2.16.840.1.006509.3.579.2.7 27 1947 Unknown [id number] 2.16.840.1.694485.3.579.2.7 27 1947 Unknown [id number] 2.16.840.1.678554.3.579.2.7 27 1947 Unknown [id number] 2.16.840.1.016594.3.579.2.7 27 1947 Unknown [id number] 2.16.840.1.894646.3.579.2.7 27 1947 Unknown [id number] 2.16.840.1.567962.3.579.2.7 27 1947 Unknown [id number] 2.16.840.1.630216.3.579.2.7 27 1947 Unknown [id number] 2.16.840.1.670169.3.579.2.7 27 1947 Unknown [id number] 2.16.840.1.722596.3.579.2.7 27 1947 Unknown [id number] 2.16.840.1.858349.3.579.2.7 27 1947 Unknown [id number] 2.16.840.1.275434.3.579.2.7 27 Unknown [id number] 2.16.840.1.802480.3.579.2.5 93 Social History Date Type Detail Facility Start: 11-19-2021 End: 07-31-2022 Tobacco smoking status Ex-smoker (finding) [facility] Start: 07-22-2020 End: 07-30-2023 Sex Assigned At Male [facility] End: 09-06-1988 History of tobacco use Current smoker [facility] Start: 09-06-2012 End: 07-22-2020 Cigarettes smoked current (pack per day) - Reported 1 [facility] Start: 09-06-2012 End: 07-31-2022 Tobacco use and exposure Smokeless tobacco non-user [facility] Start: 01-09-2022 End: 07-30-2023 Alcohol intake Current drinker of alcohol (finding) [facility] Start: 04-05-2019 History SDOH Alcohol Comment rare [facility] Start: 1945 Sex Assigned At Not on file C [facility] Start: 12-30-2021 End: 01-09-2022 Exposure to SARS-CoV-2 (event) Not sure [facility] End: 09-06-1988 History of tobacco use Cigarette Smoker [facility] History of tobacco use Passive smoker [facility] Tobacco smoking status Never [facility] Functional Status Date Assessment Result Facility 03-09-2023 Functional Status N/A [facility] Clinical Notes 11-19-2021 to 02-15-2024 Telephone Encounter - Valerie Mayes RN - 02/02/2024 10:28 AM EDTTelephone Encounter - Valerie Mayes RN - 02/02/2024 10:28 AM EDTTelephone Encounter - Aby Hernandez RN - 08/05/2022 1:46 PM EST Note Date & Type Note Facility 02-15-2024 Note Patient Education Nephrology Food Basics for Chronic Kidney Disease Chronic kidney disease (CKD) is when your kidneys are not working well. They cannot remove waste, fluids, and other substances from your blood the way they should. These substances can build up, which can worsen kidney damage and affect how your body works. Eating certain foods can lead to a buildup of these substances. Changing your diet can help prevent more kidney damage. Diet changes may also delay dialysis or even keep you from needing it. What nutrients should I limit? Work with your treatment team and a food expert (dietitian) to make a meal plan that's right for you. Foods you can eat and foods you should limit or avoid will depend on the stage of your kidney disease and any other health conditions you have. The items listed below are not a complete list. Talk with your dietitian to learn what is best for you. Potassium Potassium affects how steadily your heart beats. Too much potassium in your blood can cause an irregular heartbeat or even a heart attack. You may need to limit foods that are high in potassium, such as: ? Liquid milk and soy milk. ? Salt substitutes that contain potassium. ? Fruits like bananas, apricots, nectarines, melon, prunes, raisins, kiwi, and oranges. ? Vegetables, such as potatoes, sweet potatoes, yams, tomatoes, leafy greens, beets, avocado, pumpkin, and winter squash. ? Beans, like montanez beans. ? Nuts. Phosphorus Phosphorus is a mineral found in your bones. You need a balance between calcium and phosphorus to build and maintain healthy bones. Too much added phosphorus from the foods you eat can pull calcium from your bones. Losing calcium can make your bones weak and more likely to break. Too much phosphorus can also make your skin itch. You may need to limit foods that are high in phosphorus or that have added phosphorus, such as: ? Liquid milk and dairy products. ? Dark-colored sodas or soft drinks. ? Bran cereals and oatmeal. Protein Protein helps you make and keep muscle. Protein also helps to repair your body's cells and tissues. One of the natural breakdown products of protein is a waste product called urea. When your kidneys are not working well, they cannot remove types of waste like urea. Reducing protein in your diet can help keep urea from building up in your blood. Depending on your stage of kidney disease, you may need to eat smaller portions of foods that are high in protein. Sources of animal protein include: ? Meat (all types). ? Fish and seafood. ? Poultry. ? Eggs. ? Dairy. Other protein foods include: ? Beans and legumes. ? Nuts and nut butter. ? Soy, like tofu. Sodium Salt (sodium) helps to keep a healthy balance of fluids in your body. Too much salt can increase your blood pressure, which can harm your heart and lungs. Extra salt can also cause your body to keep too much fluid, making your kidneys work harder. You may need to limit or avoid foods that are high in salt, such as: ? Salt seasonings. ? Soy and teriyaki sauce. ? Packaged, precooked, cured, or processed meats, such as sausages or meat loaves. Sardines. ? Salted crackers and snack foods. ? Fast food. ? Canned soups and most canned foods. ? Pickled foods. ? Vegetable juice. ? Boxed mixes or gvjmr-ju-ery boxed meals and side dishes. ? Bottled dressings, sauces, and marinades. Talk with your dietitian about how much potassium, phosphorus, protein, and salt you may have each day. Helpful tips Read food labels ? Check the amount of salt in foods. Limit foods that have salt or sodium listed among the first five ingredients. Try to eat low-salt foods. ? Check the ingredient list for added phosphorus or potassium. Phos in an ingredient is a sign that phosphorus has been added. ? Do not buy foods that are calcium-enriched or that have calcium added to them (are fortified). ? Buy canned vegetables and beans that say no salt added and rinse them before eating. Lifestyle ? Limit the amount of protein you eat from animal sources each day. Focus on protein from plant sources, like tofu and dried beans, peas, and lentils. ? Do not add salt to food when cooking or before eating. ? Do not eat star fruit. It can be toxic for people with kidney problems. ? Talk with your health care provider before taking any vitamin or mineral supplements. ? If told by your health care provider, track how much liquid you drink so you can avoid drinking too much. You may need to include foods you eat that are made mostly from water, like gelatin, ice cream, soups, and juicy fruits and vegetables. If you have diabetes: If you have diabetes (diabetes mellitus) and CKD, you need to keep your blood sugar (glucose) in the target range recommended by your health care provider. Follow your diabetes management plan. This may include: ? Checking your blood glucose regula (more content not included)... [facility] 02-02-2024 Telephone encounter Note Pt informed of BRM message and denies any questions, needs or concerns at this time. Appointment verified. Valerie Mayes RN [facility] 02-02-2024 Miscellaneous Notes Pt informed of BRM message and denies any questions, needs or concerns at this time. Appointment verified. Valerie Mayes RN ----- Message from Tyler Draper MD sent at 02/02/2024 8:08 AM EDT ----- Please inform the patient that his labs are stable. We will continue observation and see him back as scheduled. documented in this encounter [facility] 02-02-2024 Telephone encounter Note ----- Message from Tyler Draper MD sent at 02/02/2024 8:08 AM EDT ----- Please inform the patient that his labs are stable. We will continue observation and see him back as scheduled. [facility] 10-19-2023 Note [place] [facility] Subjective Chiki Juarez is a 78 y.o. year old male patient being seen for follow up right heart cath performed on 09/17/2023. He's taking lasix once daily and says his LE edema is better. [facility]. Denies chest pain, palpitations, and lightheadedness. Patient Active Problem List Diagnosis Complete AV [...] of COPD and is currently followed at [facility]. He takes multiple inhalers. In June [...] of breath. He recently was seen at [facility] pulmonary and was recommended to follow-up with cardiology as a potential etiology of his shortness of breath and to possibly increase the diuretic regimen. After visit of 08/05/2023 I increased his Lasix to 40 mg twice daily. I also checked his BNP which was within normal limits and an echocardiogram that showed mild elevation of right-sided pressures with an RVSP of 39 mmHg. A follow-up BMP showed that the kidney function is right around baseline. After last visit with me of 09/09/2023 I proceeded with right heart catheterization on 09/17/2023 to further investigate his shortness of breath and mildly elevated right-sided pressures on echocardiography. This showed low normal left filling pressures and normal pulmonary arterial pressures. His furosemide was reduced to once daily. He was seen by cardiology at [facility] who also agreed that the shortness of breath is not of a cardiac etiology. 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 He also underwent walk test in September 2023 during which his oxygen dropped significantly. Today he reports that decreasing the Lasix helped with his dry mouth. He denies chest pain. He is in NYHA class III-IV symptoms. He has mild leg edema. This is improving. Review of Systems Cardiovascular: Positive for dyspnea on exertion and leg swelling (improving). Respiratory: Positive for cough and shortness of breath. Hematologic/Lymphatic: Bruises/bleeds easily. Neurological: Positive for headaches. All other systems reviewed and are negative. Objective Visit Vitals BP 122/62 (BP Location: Right arm, Patient Position: Sitting) Pulse 60 Ht 1.626 m (5' 4 ) Wt 97.1 kg (214 lb) SpO2 92% BMI 36.73 kg/m??? Smoking Status Former BSA 2.09 m??? Physical Exam Constitutional: Appearance: He is well-developed. He is obese. He is not ill-appearing. HENT: Head: Normocephalic and atraumatic. Nose: Nose normal. Eyes: General: No scleral icterus. Pupils: Pupils are equal, round, and reactive to light. Neck: Thyroid: (more content not included)... [facility] 09-17-2023 Note Patient: Chiki Whyte iger Procedure Information Date/Time: 09/17/23 1100 Procedure: Right heart cath Location: [facility] IMPLEMENTATION ANALYST 2 BIPLANE / [facility] (Cath) Providers: Daniella Easton MD Clinical information reviewed: Allergies Meds Physical Exam Airway Mallampati: III Neck ROM: full Cardiovascular Rhythm: regular Rate: normal Dental Pulmonary - normal exam Abdominal - normal exam Abdomen: soft Anesthesia Plan ASA 3 other (Conscious sedation) Anesthetic plan and risks discussed with patient. Use of blood products discussed with patient who consented to blood products. Plan discussed with fellow. Additional Equipment Requests [facility] 09-09-2023 Note [place] [facility] Subjective Chiki Juarez is a [...] of COPD and is currently followed at [facility]. He takes multiple inhalers. In June [...] of breath. He recently was seen at [facility] pulmonary and was recommended to follow-up [...] Skin is w (more content not included)... [facility] 07-30-2023 Note HNO ID: [id number] Author: Tyler Draper MD Service: ? Author [...] to light. Extraocul (more content not included)... [facility] 07-28-2023 Note [place] [facility] Subjective Chiki Juarez is a 78 y.o. year old male patient being seen per Dr. Mayra Berg of pulmonary medicine at [facility] to discuss possible increase in diuretic. [...] of COPD and is currently followed at [facility]. He takes multiple inhalers. In June [...] of breath. He recently was seen at [facility] pulmonary and was recommended to follow-up [...] is alert and (more content not included)... [facility] 05-21-2023 Note Cardiovascular Medic [facility] SUBJECTIVE Chief Complaint Patient presents with [...] 46. Legacy Enc (more content not included)... [facility] 05-21-2023 Note Patient here for 6 m o follow up NSVT, chronic diastolic heart failure, pulmonary hypertension, and complete AV block. Device was routinely interrogated in Mar 2023. Denies chest pain and palpitations. Sees Dr. Berg at [facility] for pulmonology. Doing well from cardiac standpoint. Review of Systems Cardiovascular: Positive for dyspnea on exertion and leg swelling (resolves by morning). Respiratory: Positive for shortness of breath. Hematologic/Lymphatic: Bruises/bleeds easily. Neurological: Positive for headaches and light-headedness (positional). All other systems reviewed and are negative. [facility] 03-31-2023 Hospital Discharge instructions Patient Education [...] MCKEON Address: [facility] [address] [place] [address]- Business (1) When:03/31/2024 11:58:05 Comments:With a renal ultrasound [facility] 03-31-2023 Note [id number]:[id number] [facility] 03-31-2023 Note Custom Cystoscopy ? Voiding [...] you have a fever over 100 degrees. [facility] 03-09-2023 Hospital Discharge instructions Patient Education [...] urethra. Follow these instructions at home: Take rrft-ggm-vgdmdwe and prescription medicines only as told by [...] provider. Document Revised: 02/19/2022 Document Reviewed: 02/19/2022 [employer] Patient Education 2022 Yhat. Follow Up Care 02/13/2023 11:39:29 With:MIKE VENTURA, Oni Sewell, URL Address: [facility] [address] , [place] [address]- [phone] When: Unknown Comments:schedule cysto and renal US1 yr w/ PSA [facility] 11-28-2022 Note Patient here for 6 m o follow up hyperlipidemia, CANO, and complete AV block. Denies chest pain. SOB is no more than usual. Had labs in Jul 2022. Review of Systems Cardiovascular: Positive for dyspnea on exertion. Respiratory: Positive for shortness of breath. Hematologic/Lymphatic: Bruises/bleeds easily. Neurological: Positive for headaches and light-headedness. All other systems reviewed and are negative. [facility] 11-28-2022 Note Cardiovascular Medic [facility] SUBJECTIVE Chief Complaint Patient presents with Hyperlipidemia Shortness of Breath Chiki Juarez is a 77 y.o. male here for follow-up on his pacemaker which was placed for complete heart block. HPI Last HPI per Dr. Easton: Chiki is seen in follow-up. He is a 77-year-old man with prior history of COPD and is currently followed at [facility]. He takes multiple inhalers. In June 2020 he was admitted with COVID-19 infection and had a cerebrovascular accident with resultant difficulty speaking. At that time he was also found to have complete heart block and underwent dual-chamber pacemaker implantation. He does have lower extremity edema and worsening shortness of breath. He recently was seen at [facility] pulmonary and was recommended to follow-up [...] present. Left low (more content not included)... [facility] 08-05-2022 Miscellaneous Notes Informed pt of Dr Draper's message. Pt verbalized understanding and denies further needs at this time. Aby Hernandez RN ----- Message from Tyler Draper MD sent at 08/04/2022 12:29 PM EST ----- Please inform the patient that his PSA is stable at 0.26. We will continue as planned. Alysha, BRRomie documented in this encounter [facility] 07-25-2022 Miscellaneous Notes Spoke to patient [...] awhile please advise documented in this encounter [facility] 01-16-2022 History of Present illness Narrative HEMATOLOGIC ONCOLOGY FOLLOW UP TELEPHONE ENCOUNTER Elements in this clinic note that are critical to medical decision making have been carefully reviewed and included from my prior clinic note dated: September 26, 2021 January 16, 2022 PCP and other physicians involved in care: Will Sherwood (PCP)Issa DIAGNOSIS: Multiple myeloma ONCOLOGIC HISTORY AND TREATMENT [...] random TRUS prostate biopsies with prostate adenocarcinoma, [place] 4+3, 3 cores involved out of 9, [...] x2 and pneumonia, following pulmonology team at [facility]. He has a family history significant [...] with PET CR ?Bronchiectasis, follows pulmonology at [facility] Possible cystic fibrosis, follows pulmonology at [facility], genetic testing pending Previous surgeries include a pacemaker in 2020. No family history of hematologic or oncologic issues but significant for cystic fibrosis in brother and nephew; granddaughter is a carrier of cystic fibrosis. Patient lives in [place], [place] with his , Nicolasa. He has 4 children. He has a 70-ddsw-lvyc smoking history and quit in 1986. He [...] Thus, a bone marrow biopsy would not slip box changer and it is okay to hold off [...] CC: Will Sherwood documented in this encounter [facility] 01-09-2022 History of Present illness Narrative [...] random TRUS prostate biopsies with prostate adenocarcinoma, [place] 4+3, 3 cores involved out of 9, cribriform pattern present. Bone scan with a T5 compression fracture. No evidence of other lesions on bone scan or CT abdomen. April 01, 2019 bone biopsy of T5 compression fracture negative for malignancy April 25 June 28, 2019 treated with EBRT to prostate and pelvis (Dr. Sosua); 79.2 Horan in 44 fractions; PSA yina 0.14 in December 20202020, he had multiple infections including COVID-19 x2 and pneumonia, following pulmonology team at [facility]. He has a family history significant [...] 7, treated with EBRT (Dr. 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 No family history of hematologic or oncologic issues but significant for cystic fibrosis in brother and nephew; granddaughter is a carrier of cystic fibrosis. Patient lives in [place], [place] with his , Nicolasa. He has 4 children. He has a 11-xhkn-hxwy smoking history and quit in 1986. He [...] Thus, a bone marrow biopsy would not slip box changer and it is okay to hold off for now. PSA stable at 0.30. He will follow up with Dr. Sousa for his history of prostate cancer. Hosea Herrera MD I spent a total of 20 minutes on the date of the service which included preparing to see the patient, pyfm-is-mntp patient care, completing clinical documentation, obtaining and/or reviewing separately obtained history, performing a medically appropriate examination, counseling and educating the patient/family/caregiver, ordering medications, tests, or procedures, independently interpreting results (not separately reported) and communicating results to the patient/family/caregiver. CC: Will Sherwood documented in this encounter [facility] 11-19-2021 Hospital Discharge instructions Patient Education [...] who: Are older than age 65. Are -Norwegian. Are obese. Have a family history of [...] cells. Follow these instructions at home: Take ixew-ytj-gmwxlqt and prescription medicines only as told by [...] 08/03/2006 Document Revised: 07/16/2018 Document Reviewed: 04/13/2017 [employer] Patient Education 2020 Yhat. Follow Up Care 10/30/2020 10:17:46 With:Young Manriquez MD, Romeo Valles, URO Address: [facility] [address], [place] [address]- [phone] When: Unknown [facility] Evaluation + Plan note Future Appointments Appointment Date:11/25/2022 10:15:00 AM Scheduled Provider:Romeo Vidal Jr., MD Location:[facility] Appointment Type:URO Office Visit [facility] Evaluation + Plan note Future Appointments Appointment Date:01/22/2024 11:00:00 AM Scheduled Provider: Location:[facility] Appointment Type:FM Medicare Wellness Subsequent Diagnostic Tests PendingT3 Free 01/26/23 [facility] Evaluation + Plan note Future Appointments Appointment Date:03/24/2023 10:00:00 AM Scheduled Provider: Location:[facility] Appointment Type:Urology CALL PAT FT Appointment Date:03/31/2023 11:15:00 AM Scheduled Provider: Location:[facility] Appointment Type:Urology FT Appointment Date:01/22/2024 11:00:00 AM Scheduled Provider: Location:[facility] Appointment Type:FM Medicare Wellness Subsequent Appointment Date:03/14/2024 11:15:00 AM Scheduled Provider:Oni MCKEON MD Location:[facility] Appointment Type:URO Office Visit Diagnostic Tests PendingPSA Total 03/09/23 [facility] Evaluation + Plan note Future Appointments Appointment Date:01/22/2024 11:00:00 AM Scheduled Provider: Location:[facility] Appointment Type:FM Medicare Wellness Subsequent Appointment Date:03/14/2024 11:15:00 AM Scheduled Provider:Oni [facility]KEON MD [facility] Evaluation + Plan note Future Appointments Appointment Date:12/02/2023 01:00:00 PM Scheduled Provider:Pito Patterson MD [facility] Type:FM Open Appointment Date:01/18/2024 01:00:00 PM Scheduled Provider:Pito Patterson MD [facility] Appoint[facility] Type:FM Open Appointment Date:01/22/2024 11:00:00 AM Scheduled Provider: [facility] Appoint[facility] Type:FM Medicare Wellness Subsequent Appointment Date:03/14/2024 11:15:00 AM Scheduled Provider:Oni MCKEON MD [facility] Type:URO [facility] Evaluation note Diagnosis MGUS (monoclonal gammopathy of unknown significance)- Primary Monoclonal paraproteinemia [facility] Diagnosis B12 deficiency- Primary Other B-complex deficiencies Diffuse large B-cell lymphoma, unspecified body region (HCC) [facility] Diagnosis MGUS (monoclonal gammopathy of unknown significance)- Primary Monoclonal paraproteinemia Macrocytic anemia Unspecified deficiency anemia [facility] in [facility] Narrative No data available for this section [facility] Hospital Discharge instructions No data available for this section [facility] No data available for this section [facility] Summary Purpose Family History No Family History Records FoundNo Family History Records FoundNo Family History Records FoundNo Family History Records Found No data available for this section No Family History Records FoundNo Family History Records Found Advance Directives No Advanced Directives Records FoundNo Advanced Directives Records FoundNo Advanced Directives Records FoundNo Advanced Directives Records FoundNo Advanced Directives Records FoundNo Advanced Directives Records Found Hospital Course Note MR#: [id number] [facility] Pt. Name: Chiki Juarez Admitted: 06/26/2020 Discharged: [...] asthma, lymphoma, and hypothyroidism, who transferred to [facility] for evaluation of poss (more content not included)... Additional Source Comments (unrecognized sect ion and content) No Status Records FoundNo Status Records FoundNo Status Records FoundNo Status Records FoundNo Status Records FoundNo Status Records Found INFORMATION SOURCE (unrecogn ized section and content) DATE CREATED AUTHOR 07/16/2020 [facility] DATE CREATED AUTHOR AUTHOR'S ORGANIZ ATION 04/26/2022 [facility] DATE CREATED AUTHOR AUTHOR'S ORGANIZ ATION 07/19/2023 [facility] DATE CREATED AUTHOR AUTHOR'S ORGANIZ ATION 10/19/2023 [facility] DATE CREATED AUTHOR AUTHOR'S ORGANIZ ATION 02/03/2024 [facility] DATE CREATED AUTHOR AUTHOR'S ORGANIZ ATION 03/02/2024 [facility] Source Comments (unrecognize d section and content) In the event this informatio n is protected by the Federal Confidentiality of Alcohol and Drug Abuse Patient Records regulations: The Federal rules restrict any use of the information to criminally investigate or prosecute any alcohol or drug abuse patient.[facility] the event this information is protected by the Federal Confidentiality of Alcohol and Drug Abuse Patient Records regulations: The Federal rules restrict any use of the information to criminally investigate or prosecute any alcohol or drug abuse patient.[facility] the event this information is protected by the Federal Confidentiality of Alcohol and Drug Abuse Patient Records regulations: The Federal rules restrict any use of the information to criminally investigate or prosecute any alcohol or drug abuse patient.[facility] the event this information is protected by the Federal Confidentiality of Alcohol and Drug Abuse Patient Records regulations: The Federal rules restrict any use of the information to criminally investigate or prosecute any alcohol or drug abuse patient.[facility] the event this information is protected by the Federal Confidentiality of Alcohol and Drug Abuse Patient Records regulations: The Federal rules restrict any use of the information to criminally investigate or prosecute any alcohol or drug abuse patient.[facility] the event this information is protected by the Federal Confidentiality of Alcohol and Drug Abuse Patient Records regulations: The Federal rules restrict any use of the information to criminally investigate or prosecute any alcohol or drug abuse patient.[facility] Reason for Visit (unrecogniz ed section and content) Reason Comments Prostate Cancer Reason Comments Lab Orders Reason Comments Results Reason Comments Appointment Care Teams (unrecognized sec tion and content) 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 Relationship Specialty Start Date End Date Will Sherwood MD [address] [place], [place] [id number] PCP - General 08/01/05 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 [facility] [employer] [facility] provides no warranty or guarantee of the accuracy or completeness of information in this document.
[2024-03-03 11:33] LABS: Prostate Specific Antigen Dx 0.33 ng/mL (<=4.00)
== END 2024-03-03 08:57 | disposition home or self-care (01) ==
LOC: US 08:56
PROVIDERS: PCP Family Medicine; Visit Provider Urology
DX: R31.29 Other microscopic hematuria (principal); Z85.46 Personal history of malignant neoplasm of prostate
CPT/HCPCS: 36415; 76775; 84153

== ENCOUNTER 2024-05-04 06:56 | Outpatient (RCR) | payer MEDICARE, SELFPAY ==
--- NOTE | 2024-01-13 15:40 | CR1_ITS ---
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
--- NOTE | 2024-01-15 | CR1_ITS ---
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
--- NOTE | 2024-02-12 07:26 | CR1_ITS ---
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
--- NOTE | 2024-02-24 11:18 | PC.NURSE ---
patient has been absent from cardiac rehab. called to outreach patient. patient plans to come on thursday
--- NOTE | 2024-03-11 08:47 | CR1_ITS ---
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
--- NOTE | 2024-04-13 08:00 | CR1_ITS ---
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
--- NOTE | 2024-05-04 11:27 | CR1_ITS ---
The 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
== END 2024-05-04 11:28 | disposition home or self-care (01) ==
LOC: CR 06:56
PROVIDERS: PCP Family Medicine; Visit Provider Obstetrics & Gynecology Gynecologic Oncology
DX: J44.89 Other specified chronic obstructive pulmonary disease (principal)
CPT/HCPCS: 93798; 94625

== ENCOUNTER 2024-10-11 10:02 | Inpatient (IN) | payer MEDICARE, SELFPAY ==
[2024-10-11] VITALS (106 sets, daily range): BP systolic 105–183; BP diastolic 49–88; PULSE 76–125; RESP 12; TEMP 37.1–37.7; O2SAT 85–97; BMI 38.6
--- NOTE | 2024-10-11 10:17 | ECG_ITS ---
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
[2024-10-11 10:29] LABS: Hemoglobin 13.1 g/dL (14.0-18.0); Mean Corpuscular HGB Conc 32.8 g/dL (29.9-35.2); Mean Corpuscular Hemoglobin 34.6 pg (25.9-34.0); Mean Corpuscular Volume 105.5 fL (80.0-94.0); Mean Platelet Volume 11.1 fL (9.5-13.5); Platelet Count 125 10^3/uL (150-450); Red Blood Count 3.79 10^6/uL (4.70-6.10); Red Cell Distribution Width 15.6 % (11.0-15.0); White Blood Count 6.7 10^3/uL (4.0-11.0)
--- OUTSIDE RECORDS SUMMARY | 2024-10-11 10:31 | XMS_ITS | CCD ---
Author Organization [facility] Inform ion Partnership [facility] Care Team Providers Care Mis Specialist Name Role Phone CHANCECRESCENCIO Referring Unavailable WILL SHERWOOD Primary Care Unavailable MYA BHAKTA Attending Unavailable MYA BHAKTA Admitting Unavailable [place] Procedure Practitioner Unavailab CONNOR Herrera Surgeon Unavailable MYA BHAKTA Surgeon Unavailable [place] Procedure Practitioner Unavailab WILL Jackson Primary Care [...] Care Unavailable HAY, DR MORRISON Consulting Unavailable MOUKARBLEONARD, DR BREWER Consulting Unavailable JARETT, DR WILL [...] DR BREWER P Admitting Unavailable ENGELER, DR DANIELLA Nicolas Attending [...] Care Provider Pito Patterson. Primary Care Physician [phone] Pito Patterson MD Primary Care Provider DANIELLA EASTON Attending Unavailable ANASTASIA SINHA Attending Unavailable DANIELLA EATSON Attending Unavailable DANIELLA EASTON Admitting Unavailable DANIELLA EASTON Attending Unavailable CONNOR CARRERA Referring Unavailable DANIELLA EASTON Attending Unavailable DANIELLA EASTON Attending Unavailable Unallocated Mohit VENTURA Provider Primary Care Provi preet [facility], Crys Unavailable [phone] Connor Crawley DO Unavailable [phone] Pito Patterson MD Primary Care Provider DO Connor Crawley Attending Provider MD Pito Patterson Primary Care Provider [phone] KAYLA PATTERSONUEL E Primary Care Unavailable ROSS, PITO E Primary Care Unavailable TYLER DRAPER Attending Unavailable ROSS, PITO E Primary Care Unavailable ROSS, PITO E Primary Care Unavailable TYLER DRAPER Attending Unavailable TYLER DRAPER Referring Unavailable ROSS, PITO E Primary Care Unavailable TYLER DRAPER Referring Unavailable ROSS, PITO E Primary Care Unavailable TYLER DRAPER Referring Unavailable ROSS, PITO E Primary Care Unavailable TYLER DRAPER Attending Unavailable TYLER DRAPER Referring Unavailable ROSS, PITO E Primary Care Unavailable Cononr Crawley Attending Unavailable Connor Crawley Admitting Unavailable Ross, Pito E Primary Care Unavailable Unallocated Mohit VENTURA Provider Primary Care Provi preet CRYS TAYLOR Attending Unavailable TYLER DRAPER Referring Unavailable CONNOR CRAWLEY S Attending Unavailable CRYS TAYLOR Referring Unavailable CONNOR CRAWLEY S Attending Unavailable CONNOR CRAWLEY S Attending Unavailable CRYS TAYLOR Attending Unavailable Pito Patterson E. Attending Unavailable Pito Patterson E. Attending Unavailable Pito Patterson E. Attending Unavailable Pito Patterson E. Attending Unavailable Pito Patterson E. Attending Unavailable MARKUS CERNA Attending Unavailable Marlys Oliiva Attending Unavailable Pito Patterson E. Attending Unavailable Pito Patterson E. Attending Unavailable Oni MCKEON Attending Unavailable MCKEON, Oni R Attending Unavailable Pito Patterson Admitting Unavailable Pito Patterson Attending Unavailable Allergies Allergy Classification Reported Allergen(s) Allergy Type Date of Onset Reaction(s) Facility (12 sources) Spironolactone; Translations: [SPIRONOLACTONE] Drug Allergy 09-18-2021 Other: See Comments [facility] Medications Current Medications Medication Drug Class(es) Dates Sig (Normalized) Sig (Original) 1.91 ML tezepelumab-ekko 110 MG/ML Auto-Injector [Tezspire] (1 source) Start: 02-15-2024 Tezspire Pre-filled Pen 210 mg/1.91 mL subcutaneous solution 210 mg, SubCutaneous, q4wk, patient not sure of dose, Refills(s) 0 Start Date: 02/15/24 Status: Ordered Acetaminophen / Codeine (20 sources) Opioid Agonist Start: 02-24-2019 take 1 tablet by mouth every six hours acetaminophen-codei ne #3 tab(s), Oral, q6hr Start Date: 02/24/19 Status: Ordered acetaminophen-co deine (Tylenol w/ Codeine #3) 300-30 MG tablet acetaminophen 300 mg-codeine 30 mg tablet Active Comment on above: acetaminophen 300 mg -codeine 30 mg tablet albuterol 0.83 mg/ml inhalation solution (20 sources) beta2-Adrenergic Agonist Start: 06-01-20 take 2.5 mg by inhalation four times daily Albuterol Sulfate Active 2.5 MG INHALATION Four times daily June 01, 2024 12:00am Start: 02-22-2024 albuterol 0.08 3% Inh Kasie 3 mL See Instructions, 300 mL, Refill(s) 3, INHALE 1 VIAL VIA NEBULIZER EVERY 4 HOURS, [id number], 161, cm, 02/15/24 10:32:00 EDT, Height/Length Dosing, 102, kg, 02/15/24 10:32:00 EDT, Weight Dosing Start Date: 02/22/24 Status: Ordered Start: 10-19-2023 take 1 dose by inhal ation every four hours albuterol 0.083% Inh Kasie 3 mL See Instructions, 300 mL, Refill(s) 3, INHALE 1 VIAL VIA NEBULIZER EVERY 4 HOURS, [facility]/pharmacy #[id number], 168, cm, 10/19/23 8:08:00 EST, Height/Length Dosing, 101.5, kg, 10/19/23 8:08:00 EST, Weight Dosing Start Date: 10/19/23 Status: Ordered Start: 10-08-2023 take 2 puff(s) by in halation once daily as needed albuterol HFA 90 mcg/act inhaler Inhale 2 puffs Daily as needed 10/08/2023 Active Start: 12-17-2022 take 2.5 mg by inhal ation every four hours albuterol 0.083% Inh Kasie 3 mL 2.5 mg, 3 mL, NEB, q4hr, 300 mL, Refill(s) 3, [facility]/pharmacy #[id number], 162, cm, 10/28/22 15:18:00 EDT, Height/Length Dosing, 99.8, kg, 10/28/22 15:18:00 EDT, Weight Dosing Start Date: 12/17/22 Status: Ordered Start: 12-17-2022 albuterol 0.08 3% Inh Kasie 3 mL See Instructions, 150 mL, Refill(s) 0, INHALE 1 VIAL VIA NEBULIZER EVERY 6 HOURS, [id number], 162, cm, 10/28/22 15:18:00 EDT, Height/Length Dosing, 99.8, kg, 10/28/22 15:18:00 EDT, Weight Dosing Start Date: 12/17/22 Status: Ordered Start: 02-24-2019 take 1 dose by inhal ation every four hours albuterol (PROVENTIL) 2.5 mg /3 mL (0.083 %) nebulizer solution albuterol sulfate 2.5 mg/3 mL (0.083 %) solution for nebulization INHALE 1 VIAL VIA NEBULIZER EVERY 4 HOURS 02/24/2019 Active Start: 02-24-2019 take 1 mg by inhalat ion every six hours albuterol 0.083% Inh Kasie 3 mL mg, mL, NEB, q6hr Start Date: 02/24/19 Status: Ordered Start: 05-22-2016 PROAIR HFA 90 mcg/actuation inhaler Inhale 1 Puff as instructed as needed. 05/22/2016 Active Comment on above: Inhale 1 Puff as ins tructed as needed. albuterol sulfate 2. 5 mg/3 mL (0.083 %) solution for nebulization INHALE 1 VIAL VIA NEBULIZER EVERY 4 HOURS albuterol 0.833 mg/ml / ipratropium bromide 0.167 mg/ml inhalation solution (20 sources) Anticholinergic, beta2-Adrenergic Agonist Start: 02-25-20 19 take 1 dose by inhalation every six hours as needed ipratropium-albute rol (DUONEB) 0.5 mg-3 mg(2.5 mg base)/3 mL nebu INHALE 1 VIAL VIA NEBULIZER EVERY 6 HOURS NEEDED *DX J44.9* 4 02/24/2019 Active Comment on above: INHALE 1 VIAL VIA NE BULIZER EVERY 6 HOURS NEEDED *DX J44.9* aspirin 81 mg delayed release oral tablet (20 sources) Platelet Aggregation Inhibitor, Nonsteroidal Anti-inflammatory Drug Start: 05-11-20 take 1 tablet by mouth once daily aspirin 81 mg Oral EC Tab 81 mg = 1 tab(s), Oral, Daily, Refills(s) 0 Start Date: 05/11/23 Status: Ordered Comment on above: Take 81 mg by mouth once daily. azelastine hydrochloride 0.137 mg/actuat metered dose nasal spray (14 sources) Histamine-1 Receptor Antagonist Start: 06-01-20 Azelastine Active 1 SPRAY INTRANASAL Twice daily June 01, 2024 12:00am Start: 04-21-2024 take 1 spray(s) nasa l route in the morning azelastine (Astelin) 0.1 % nasal spray Administer 1 spray into affected nostril(s) in the morning and 1 spray in the evening. 04/21/2024 Active budesonide 0.5 mg/ml inhalation suspension (20 sources) Corticosteroid Start: 12-31-2023 budesonide (Pu lmicort) 1 MG/2ML nebulizer solution 2 mL 12/31/2023 Active Start: 10-26-2023 take 0.5 mg by inhal ation twice daily budesonide 0.5 mg/2 mL Inh Susp 0.5 mg = 2 mL, NEB, BID, # 120 mL, Refills(s) 11, Pharmacy: [facility]/pharmacy #[id number], 168, cm, 10/19/23 8:08:00 EST, Height/Length Dosing, 101.5, kg, 10/19/23 8:08:00 EST, Weight Dosing Start Date: 10/26/23 Status: Ordered Start: 09-30-2023 take 0.5 mg by inhal ation twice [...] BID, # 120 mL, Refills(s) 11, Pharmacy: [facility]/pharmacy #[id number], 162, cm, 10/28/22 15:18:00 EDT, Height/Length Dosing, 99.8, kg, 10/28/22 15:18:00 EDT, Weight Dosing Start Date: 10/28/22 Status: Ordered Start: 02-24-2019 take 0.5 mg by inhal ation twice daily budesonide 0.5 mg/2 mL Inh Susp 0.5 mg = 2 mL, NEB, BID, # 120 mL Start Date: 02/24/19 Status: Ordered budesonide (Pulm icort) 0.5 MG/2ML nebulizer solution USE 1 VIAL VIA NEBULIZER TWICE A DAY Active budesonide (PULM ICORT) 0.5 mg/2 mL nebulizer solution 2 mL. 0 Active Comment on above: 2 mL. calcium carbonate 1500 mg or al tablet (13 sources) calcium carbonat e 1500 (600 Ca) MG tablet every 12 (twelve) hours Active Calcium Citrate / Vitamin D (6 sources) Start: 02-24-2019 calcium-vitami n D Start Date: 02/24/19 Status: Ordered CALCIUM CITRATE-VITAMIN D3 ORAL (11 sources) CALCIUM CITRATE- VITAMIN D3 ORAL Take by mouth. Active CALCIUM CITRATE- VITAMIN D3 ORAL Take by mouth. 0 Active Comment on above: Take by mouth. cefadroxil 500 mg oral capsule (2 sources) Cephalosporin Antibacterial Start: 10- End: take 1 capsule by mouth in the morning, then take 1 capsule by mouth in the evening, then take 1 capsule by mouth at bedtime cefadroxil (Duricef) 500 MG capsule Indications: Squamous cell carcinoma of scalp Take 1 capsule (500 mg) by mouth in the morning and 1 capsule (500 mg) in the evening and 1 capsule (500 mg) before bedtime. Do all this for 10 days. 30 capsule 06/09/2024 06/19/2024 Active cholecalciferol 0.025 mg oral tablet (20 sources) Vitamin D cholecalciferol (Vitamin D-[address]) 25 MCG (1000 UT) tablet Take 1,000 Units by mouth Active cholecalciferol (VITAMIN D3) 1,000 unit tab tablet Take 1,000 Units by mouth. Active Comment on above: Take 1,000 Units by mouth. cyanocobalamin, vitamin B-12, (VITAMIN B-12 ORAL) (11 sources) cyanocobalamin, vitamin B-12, (VITAMIN B-12 ORAL) Take by mouth. Active cyanocobalamin, vitamin B-12, (VITAMIN B-12 ORAL) Take by mouth. 0 Active Comment on above: Take by mouth. doxycycline hyclate 100 mg oral capsule (20 sources) Tetracycline-class Drug take 1 capsule by mouth in the morning doxycycline (Vibramycin) 100 MG capsule Take 100 mg by mouth in the morning. Active Comment on above: Take 100 mg by mouth once daily. ferrous sulfate 325 mg oral tablet (11 sources) Start: 05-16-2021 ferrous sulfate 325 mg (65 mg iron) tablet 05/16/2021 Active furosemide 40 mg oral tablet (20 sources) Loop Diuretic Start: 01-22-2023 take 40 mg by mouth once daily Furosemide Active 40 MG PO Daily June 01, 2024 12:00am Start: 06-26-2021 furosemide (LA SIX) 20 mg tablet q 24 HR. 06/26/2021 Active Comment on above: q 24 HR. gabapentin 300 mg oral capsule (18 sources) Anti-epileptic Agent Start: 05-11-2023 take 1 capsule by mouth at bedtime gabapentin (Neurontin) 300 MG capsule Take 300 mg by mouth at bedtime 05/11/2023 Active Start: 03-09-2023 take 1 capsule by tn ut once daily at bedtime gabapentin 300 mg Cap 300 mg = 1 cap(s), Oral, Once a day (at bedtime), # 30 cap(s), Refills(s) 0, [id number] 168, cm, 03/09/23 11:04:00 EDT, Height/Length Dosing, 103, kg, 03/09/23 11:04:00 EDT, Weight Dosing Start Date: 03/09/23 Status: Ordered Start: 01-22-2023 take 1 capsule by [facility] once daily at bedtime gabapentin 300 mg Cap 300 mg = 1 cap(s), Oral, Once a day (at bedtime), # 30 cap(s), Refills(s) 0, Pharmacy: [facility]/pharmacy #[id number], 162, cm, 01/22/23 13:19:00 EDT, Height/Length Dosing, 98.3, kg, 01/22/23 13:19:00 EDT, Weight Dosing Start Date: 01/22/23 Status: Ordered Handicap Placard, 5 years. (2 sources) Start: 10-19-[address], 5 years. Handicap Placard, 5 years., See Instructions, 1 EA, 0, Handicap Placard, 5 years., Supply Start Date: 10/19/23 Status: Ordered ipratropium bromide 0.042 mg/actuat metered dose nasal spray (17 sources) Anticholinergic Start: 04-21-2024 take 2 spray(s) nasal route in the morning ipratropium (Atrovent) 0.06 % nasal spray Administer 2 sprays into affected nostril(s) in the morning and 2 sprays in the evening. 04/21/2024 Active Start: 03-13-2023 End: 03-07-2024 take 2 spray(s) nasal route twice daily, then take 2 spray(s) nasal route twice daily ipratropium Nasal 0.06% Baggs 2 spray(s), Nasal, BID for 90 day(s), 45 mL, Refill(s) 3, PLACE 2 SPRAYS IN EACH NOSTRIL TWO TIMES DAILY., [facility]/pharmacy #[id number], 168, cm, 03/09/23 11:04:00 EDT, Height/Length Dosing, 103, kg, 03/09/23 11:04:00 EDT, Weight Dosing Start Date: 03/13/23 Stop Date: 03/07/24 Status: Ordered Start: 02-20-2023 take 1 dose nasal ro pamunkey twice daily, then take 2 spray(s) nasal route twice daily ipratropium Nasal 0.06% Baggs 2 spray(s), Nasal, BID, 1 EA, Refill(s) 1, PLACE 2 SPRAYS IN EACH NOSTRIL TWO TIMES DAILY., [facility]/pharmacy #[id number], 162, cm, 01/22/23 13:19:00 EDT, Height/Length Dosing, 98.3, kg, 01/22/23 13:19:00 EDT, Weight Dosing Start Date: 02/20/23 Status: Ordered Start: 01-22-2023 take 1 dose nasal ro pamunkey twice daily, then take 2 spray(s) nasal route twice daily ipratropium Nasal 0.06% Baggs 2 spray(s), Nasal, BID, 1 EA, Refill(s) 1, PLACE 2 SPRAYS IN EACH NOSTRIL TWO TIMES DAILY., [facility]/pharmacy #[id number], 162, cm, 01/22/23 13:19:00 EDT, Height/Length Dosing, 98.3, kg, 01/22/23 13:19:00 EDT, Weight Dosing Start Date: 01/22/23 Status: Ordered levothyroxine sodium 0.1 mg oral tablet (20 sources) l-Thyroxine Start: 04-22-2024 take 1 tablet by mouth once daily levothyroxine 100 mcg (0.1 mg) Tab See Instructions, TAKE 1 TABLET BY MOUTH EVERY DAY, # 90 tab(s), Refills(s) 0, Pharmacy: [id number], 161, cm, 02/15/24 10:32:00 EDT, Height/Length Dosing, 102, kg, 02/15/24 10:32:00 EDT, Weight Dosing Start Date: 04/22/24 Status: Ordered Start: 10-19-2023 take 1 tablet by noe th once daily levothyroxine 100 mcg (0.1 mg) Tab 100 mcg = 1 tab(s), Oral, Daily, # 90 tab(s), Refills(s) 0, Pharmacy: [facility]/pharmacy #[id number], 168, cm, 10/19/23 8:08:00 EST, Height/Length Dosing, 101.5, kg, 10/19/23 8:08:00 EST, Weight Dosing Start Date: 10/19/23 Status: Ordered Start: 02-24-2019 take 100 ug by mouth once daily Levothyroxine Active 100 MCG PO Daily June 01, 2024 12:00am Start: 02-24-2019 take 1 tablet by noe th once daily levothyroxine 100 mcg (0.1 mg) Tab 100 microgram = 1 tab(s), Oral, Daily Start Date: 02/24/19 Status: Ordered Comment on above: Take 100 mcg by mout h daily before breakfast. loratadine 10 mg oral tablet (13 sources) take 1 tablet by mouth once daily loratadine (Claritin) 10 MG tablet Take 1 tablet by mouth Daily Active 24 hr metoprolol succinate 25 mg extended release oral tablet (20 sources) beta-Adrenergic Xochitl Start: 06-01-2024 take 25 mg by mouth once daily Metoprolol Succinate Active 25 MG PO Daily June 01, 2024 12:00am Start: 07-28-2023 End: 07-27-2024 take 1 tablet by mouth every twenty-four hours at bedtime metoprolol succinate XL (Toprol-XL) 25 MG 24 hr tablet Take 25 mg by mouth at bedtime 07/28/2023 Active Start: 10-28-2022 take 1 tablet by mouth once da adal metoprolol 25 mg ER Tab 25 mg [...] Take 25 mg by mouth once daily. Active Comment on above: Take 25 mg by mouth once daily. montelukast 10 mg oral tablet (15 sources) Leukotriene Receptor Antagonist Start: 04-22-20 take 10 mg by mouth once daily Montelukast Active 10 MG PO Daily June 01, 2024 12:00am Nebulizer accessory set (5 sources) Start: 01-23-20 Nebulizer accessory set Nebulizer accessory set, See Instructions, 1 EA, 0, pt to use nebulizer as prescribed for COPD, [facility] ([facility] Supply, 162, cm, 01/22/23 13:19:00 EDT, Height/Length Dosing, 98.3, kg, 01/22/23 13:19:00 EDT, Weight Dosing Start Date: 01/22/23 Status: Ordered Oxygen - for Home (1 source) Start: 02-15-20 Oxygen - for Home 4 L/min, Daily, Refill(s) 0, Oxygen - patient states his shot polisher just increased this to 4LPM Start Date: 02/15/24 Status: Ordered polyethylene glycol 3350 75223 mg powder for oral solution (11 sources) Osmotic Laxative Start: 08-04-20 polyethylene glycol 3350 (MIRALAX, GLYCOLAX) 17 gram/dose powder MIX 1 TABLESPOONFUL DIRECTED AND DRINK EVERY DAY 3 08/04/2017 Active Comment on above: MIX 1 TABLESPOONFUL DIRECTED AND DRINK EVERY DAY potassium chloride 10 meq extended release oral capsule (20 sources) Start: 08-24-19 take 1 tablet by mouth once daily [...] Status: Ordered Start: 06-26-2021 potassium chlo ride ER (Micro-K) 10 MEQ ER capsule Take 10 mEq by mouth 07/28/2023 Active predniSONE 10 mg oral tablet (20 sources) take 1 tablet by mouth in the morning predniSONE (Deltasone) 10 MG tablet Take 10 mg by mouth in the morning. Active Comment on above: Take 10 mg by mouth once daily. Salmeterol (20 sources) beta2-Adrenergic Agonist Start: 4 take 50 ug by inhalation twice daily Salmeterol (Serevent Diskus) 50 mcg/dose blister with device Active 2 INH INHALATION Twice daily June 01, 2024 12:00am Start: 01-27-2024 Serevent Disku s 50 mcg inhalation powder 50 mcg, 1 EA, Inhalation, q12hr, 3 EA, Refill(s) 3, [facility], 168, cm, 12/01/23 14:24:00 EDT, Height/Length Dosing, 103, kg, 12/01/23 14:24:00 EDT, Weight Dosing Start Date: 01/27/24 Status: Ordered Start: 04-17-2023 Serevent Disku s 50 mcg inhalation powder 50 mcg, 1 EA, Inhalation, q12hr, 3 EA, Refill(s) 3, [facility] ([email or web address]), 168, cm, 03/09/23 11:04:00 EDT, Height/Length Dosing, 103, kg, 03/09/23 11:04:00 EDT, Weight Dosing Start Date: 04/17/23 Status: Ordered Start: 05-01-2020 Serevent Disku s 50 mcg inhalation Inhalation, BID, Refills(s) 0 Start Date: 05/01/20 Status: Ordered take 1 puff(s) by in halation in the morning Serevent Diskus 50 MCG/ACT aerosol powder Inhale 1 puff in the morning and 1 puff in the evening. Active take 1 puff(s) by in halation twice daily salmeterol (SEREVENT DISKUS) 50 mcg/dose diskus inhaler Inhale 1 Puff as instructed twice daily. Active Comment on above: Inhale 1 Puff as ins tructed twice daily. salmon calcitonin 200 unt/actuat nasal spray (13 sources) Calcitonin calcitonin, salmon, (Miacalcin) 200 UNIT/ACT nasal spray 1 spray 1 (one) time each day at the same time Active sodium chloride 35 mg/ml inhalation solution (20 sources) Start: 4 take 4 mL by inhalation in the morning HyperSal 3.5 % nebulizer solution nebulizer solution Inhale 4 mL in the morning and 4 mL in the evening. 04/21/2024 Active Start: 02-15-2024 Hyper-Flaco 3.5% inhalation solution See Instructions, Refill(s) 0, per neulizer BID, skip one dose with increased swelling in feet- per patient Start Date: 02/15/24 Status: Ordered Start: 11-17-2023 take 4 mL by inhalat ion twice daily sodium chloride 7 % nebulizer solution nebulizer solution INHALE 4 ML VIA NEBULIZER TWO TIMES DAILY 11/17/2023 Active spironolactone 50 mg oral tablet (20 sources) Aldosterone Antagonist Start: 02-24-2019 take 1 tablet by mouth once daily spironolactone 50 mg Tab 50 mg = 1 tab(s), Oral, Daily Start Date: 02/24/19 Status: Ordered Comment on above: spironolactone 50 mg tablet Tezepelumab-Ekko (1 source) Start: 06-01-2024 Tezepelumab-Ekko (Tezspire) 210 mg/1.91 mL (110 mg/mL) pen injector Active 210 MG SUBCUT .monthly June 01, 2024 12:00am Tezepelumab-ekko (Tezspire) 210 MG/1.91ML solution auto-injector (13 sources) Start: 11-09-2023 End: 02-01-2025 Tezepelumab-ekko (Tezspire) 210 MG/1.91ML solution auto-injector Inject 210 mg under the skin every 28 (twenty-eight) days 11/09/2023 02/01/2025 Active TEZSPIRE 210 mg/1.91 mL (110 mg/mL) injection (5 sources) Start: 04-05-2024 TEZSPIRE 210 mg/1.91 mL (110 mg/mL) injection 04/05/2024 Active Tezspire 210 MG/1.91ML solution auto-injector (13 sources) Start: 04-05-2024 Tezspire 210 MG/1.91ML solution auto-injector 04/05/2024 Active tiotropium (20 sources) Anticholinergic Start: 06-01-2024 take 1 capsule by inhalation once daily Tiotropium [place] Active 1 CAP INHALATION Daily June 01, 2024 12:00am Start: 11-16-2023 tiotropium 18 mcg Inh Cap See Instructions, INHALE 2 INHALATIONS FROM THE CONTENTS OF 1 CAPSULE BY MOUTH VIA INHALATION DEVICE ONCE DAILY, # 90 cap(s), Refills(s) 3, Pharmacy: [facility], 168, cm, 10/19/23 8:08:00 EST, Height/Length Dosing, 101.5, kg, 10/19/23 8:08:00 EST, Weight Dosing Start Date: 11/16/23 Status: Ordered Start: 06-01-2023 Spiriva 18 mcg Cap 18 [...] Refills(s) 0 Start Date: 02/24/19 Status: Ordered Spiriva HandiHal er 18 MCG inhalation capsule Active vitamin B12 (20 sources) Vitamin B12 Start: 02-24-[address] art Date: 02/24/19 Status: Ordered Cyanocobalamin ( Vitamin B 12) 100 MCG lozenge Active take 1 tablet by mouth in the mo rning cyanocobalamin (Vitamin B-12) 1000 MCG tablet Take 1,000 mcg by mouth in the morning. Active Completed/Discontinued Medications Medication Drug Class(es) Dates Sig (Normalized) Sig (Original) amoxicillin 500 mg oral capsule (7 sources) Penicillin-class Antibacterial Start: 10-05-2020 End: 04-19-2024 amoxicillin (POLYMOX, AMOXIL) 500 mg capsule Take 500 mg by mouth. 10/05/2020 04/19/2024 Discontinued (Course of therapy completed) Comment on above: Take 500 mg by mouth . cephalexin 500 mg oral capsule (7 sources) Cephalosporin Antibacterial Start: 10-31-2020 End: 04-19-2024 cephALEXin (KEFLEX) 500 mg capsule Take 500 mg by mouth. 10/31/2020 04/19/2024 Discontinued (Course of therapy completed) Comment on above: Take 500 mg by mouth . ciprofloxacin 500 mg oral tablet (1 source) Quinolone Antimicrobial Start: 03-10-2023 take 1 tablet by mouth once daily Cipro 500 mg Tab 500 mg = 1 tab(s), Oral, Daily, Take 1 tablet the day before the procedure and 1 tablet after the procedure, # 2 tab(s), Refills(s) 0, Pharmacy: [facility]/pharmacy #[id number], 168, cm, 03/09/23 11:04:00 EDT, Height/Length Dosing, 103, kg, 03/09/23 11:04:00 EDT,... Start Date: 03/10/23 Status: Ordered Electric scooter (2 sources) Start: 09-03-2023 Electric scooter Electric scooter, See Instructions, 1 EA, 0, Pt would like an electric scooter, Supply Start Date: 09/03/23 Status: Ordered indacaterol (8 sources) Start: 02-24-2019 take 1 capsule by inhalation once daily Arcapta Neohaler 75 mcg inhalation capsule 75 microgram = 1 cap(s), Inhalation, Daily Start Date: 02/24/19 Status: Ordered End: 04-19-2024 indacaterol (ARCAPTA NEOHALE R) 75 mcg CpDv Arcapta Neohaler 75 mcg capsule with inhalation device 04/19/2024 Discontinued (Discontinued by another Health Care Provider) Comment on above: Arcapta Neohaler 75 mcg capsule with inhalation device iv contrast (will be provided with radiology test) (1 source) Start: 06-10-2024 End: 06-11-2024 iv contrast (will be provided with radiology test) CT Chest W -Inject, intravenously, once for 1 dose.No IV access, insert saline lock prior to the beginning of sedation, infusion, injection of imaging exam. Discontinue saline lock post exam. If Pt. has a central line or IVAD, may access for administration according to line specific nursing protocol. Once exam is complete flush line and de-access according to line specific nursing protocol in the CT contrast administration guidelines link. 1 Each 06/10/2024 06/11/2024 Problems Active Problems Problem Classification Problem Date Documented Date Episodic/Chronic Chronic kidney disease (12 sources) Chronic kidney disease stage 3A ; Translations: [Chronic kidney disease, stage 3a (HCC)] Onset: 04-15-2024 Resolved: 05-31-2024 10-19-2023 Chronic Chronic obstructive pulmonary disease and bronchiectasis (18 sources) Asthma-chronic obstructive pulmonary disease overlap syndrome; Translations: [Chronic obstructive pulmonary disease, unspecified] Onset: 05-20-2021 Resolved: 05-31-2024 02-24-2019 Chronic Congestive heart failure; nonhypertensive (20 sources) Chronic systolic (congestive) heart failure; Translations: [Heart failure, unspecified] Onset: 04-29-2021 Resolved: 05-31-2024 Chronic Comment on above: Noted in 05/21/2023 U T page 1, added per outpatient CDI policy. Immunity disorders (4 sources) Hypergammaglobulinemi a, unspecified; Translations: [HYPERGAMMAGLOBULINEM IA UNSPECIFIED] Onset: 09-24-2021 Chronic Lymphadenitis (3 sources) Lymphadenopathy; Translations: [Enlarged lymph nodes, unspecified] 04-19-2024 Episodic Neoplasms of unspecified nature or uncertain behavior (2 sources) Neoplastic disease; Translations: [Neoplasm of unspecified behavior of bone, soft tissue, and skin] 05-03-2024 Episodic Nutritional deficiencies (1 source) Vitamin D deficiency, unspecified; Translations: [VITAMIN D DEFICIENCY UNSPECIFIED] Onset: 05-03-2021 Chronic Other and unspecified benign neoplasm (2 sources) Hemangioma of skin and subcutaneous tissue; Translations: [Hemangioma of skin and subcutaneous tissue] 05-03-2024 Episodic Other and unspecified benign neoplasm (2 sources) Melanocytic nevus of trunk; Translations: [Melanocytic nevi of trunk] 08-04-2024 Episodic Other circulatory disease (5 sources) History of cerebrovascular disease 10-28-2022 Episodic Other circulatory disease (2 sources) Spider nevus; Translations: [Nevus, non-neoplastic] 08-04-2024 Episodic Other eye disorders (5 sources) Anisocoria; Translations: [ANISOCORIA] Onset: 05-16-2021 Chronic Other fractures (1 source) Compression fracture of vertebral column 02-24-2019 Episodic Other fractures (5 sources) Wedge fracture of thoracic vertebra 10-28-2022 Episodic Other injuries and conditions due to external causes (4 sources) Local infection of wound; Translations: [Other injury of unspecified body region, initial encounter] 06-09-2024 Episodic Other lower respiratory disease (6 sources) Other forms of dyspnea; Translations: [OTHER FORMS OF DYSPNEA] Onset: 04-16-2022 Episodic Other nervous system disorders (2 sources) Walking disability 08-24-2023 Chronic Other nervous system disorders (10 sources) Chronic pain; Translations: [Other chronic pain] Onset: 05-31-2024 Resolved: 05-31-2024 05-31-2024 Chronic Other non-epithelial cancer of skin (11 sources) 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; Translations: [Squamous cell carcinoma of skin of other parts of face] Onset: 06-01-2024 05-31-2024 Episodic Other nutritional; endocrine; and metabolic disorders (1 source) Hypomagnesemia; Translations: [HYPOMAGNESEMIA] Onset: 05-03-2021 Chronic Other nutritional; endocrine; and metabolic disorders (3 sources) Obesity 01-16-2023 Chronic Other skin disorders (2 sources) Lesion of skin of face; Translations: [Disorder of the skin and subcutaneous tissue, unspecified] 04-19-2024 Episodic Other skin disorders (4 sources) Seborrheic keratosis; Translations: [Other seborrheic keratosis] 05-03-2024 Episodic Other skin disorders (4 sources) Actinic keratosis; Translations: [Actinic keratosis] 05-03-2024 Episodic Other skin disorders (2 sources) Lentigo simplex; Translations: [Other melanin hyperpigmentation] 08-04-2024 Episodic Other upper respiratory infections (10 sources) Chronic sinusitis; Translations: [Chronic sinusitis, unspecified] Onset: 07-02-2023 Resolved: 05-31-2024 05-31-2024 Chronic Residual codes; unclassified (5 sources) Localized edema; Translations: [LOCALIZED EDEMA] Onset: 02-07-2022 Episodic Respiratory failure; insufficiency; arrest (adult) (12 sources) Chronic hypoxemic respiratory failure; Translations: [Chronic respiratory failure with hypoxia] Onset: 04-15-2024 Resolved: 05-31-2024 10-19-2023 Chronic Unclassified (1 source) CONTACT W/AND (SUSP) EXPOS COVID-19; Translations: [CONTACT W/AND (SUSP) EXPOS COVID-19] Onset: 05-28-2021 Unclassified (1 source) Asymptomatic microscopic hematuria 04-22-2024 Unclassified (1 source) Other ventricular tachycardia; Translations: [Other ventricular tachycardia] Onset: 07-28-2023 Past or Other Problems Problem Classification Problem Date Documented Date Episodic/Chronic Abdominal hernia (15 sources) Hernia of anterior abdominal wall; Translations: [Ventral hernia without obstruction or gangrene] Onset: 05-21-2023 Resolved: 05-31-2024 10-28-2022 Episodic Acute cerebrovascular disease (20 sources) Cerebrovascular accident; Translations: [Cerebral infarction, unspecified] Onset: 08-03-2020 Resolved: 05-31-2024 05-31-2024 Chronic Administrative/social admission (10 sources) Walking disability; Translations: [Other reduced mobility] Onset: 09-09-2023 Resolved: 05-31-2024 05-31-2024 Episodic Aspiration pneumonitis; food/vomitus (1 source) Pneumonitis due to inhalation of food and vomit; Translations: [PNEUMONITIS D/T INHAL FOOD AND VOMIT] Onset: 09-11-2021 Episodic Asthma (10 sources) Uncomplicated moderate persistent asthma; Translations: [Moderate persistent asthma, uncomplicated] Onset: 05-31-2024 Resolved: 05-31-2024 05-31-2024 Chronic Calculus of urinary tract (14 sources) Kidney stone; Translations: [Calculus of kidney] Onset: 05-21-2023 Resolved: 05-31-2024 06-07-2019 Episodic Cancer of prostate (15 sources) Malignant tumor of prostate; Translations: [Malignant neoplasm of prostate] Onset: 01-07-2022 Resolved: 05-31-2024 01-05-2020 Chronic Cancer of prostate (20 sources) Personal history of malignant neoplasm of prostate; Translations: [History of malignant neoplasm of prostate] Onset: 11-19-2021 Resolved: 05-31-2024 Episodic Conduction disorders (20 sources) Cardiac pacemaker in situ; Translations: [Encounter for adjustment and management of automatic implantable cardiac defibrillator] Onset: 08-03-2020 Resolved: 05-31-2024 10-16-2023 Chronic Comment on above: noted in 07/28/2023 Cardiology Consult Note page 1. added per OP [facility] policy. Deficiency and other anemia (13 sources) Macrocytic anemia; Translations: [Nutritional anemia, unspecified] Onset: 05-31-2024 Resolved: 05-31-2024 Episodic Comment on above: noted in 07/21/2023 Cardiology Consult Note page 4. added per OP [facility] policy. Deficiency and other anemia (5 sources) Anemia, unspecified; Translations: [ANEMIA UNSPECIFIED] Onset: 05-03-2021 Episodic Deficiency and other anemia (1 source) Iron deficiency anemia, unspecified; Translations: [IRON DEFICIENCY ANEMIA UNSPECIFIED] Onset: 05-28-2021 Episodic Diabetes mellitus without complication (10 sources) Hyperglycemia; Translations: [Hyperglycemia, unspecified] Onset: 05-31-2024 Resolved: 05-31-2024 05-31-2024 Episodic Disorders of lipid metabolism (16 sources) Hyperlipidemia, unspecified; Translations: [Mixed hyperlipidemia] Onset: 02-10-2022 Resolved: 05-31-2024 Chronic Fluid and electrolyte disorders (4 sources) Hyperkalemia; Translations: [HYPERKALEMIA] Onset: 05-14-2021 Episodic Genitourinary symptoms and ill-defined conditions (20 sources) Poor stream of urine; Translations: [Poor urinary stream] Onset: 11-19-2021 Resolved: 05-31-2024 Episodic Hyperplasia of prostate (20 sources) Benign prostatic hypertrophy with outflow obstruction; Translations: [Benign prostatic hyperplasia with lower urinary tract symptoms] Onset: 11-19-2021 Resolved: 05-31-2024 Chronic Immunizations and screening for infectious disease (4 sources) Encounter for immunization; Translations: [ENCOUNTER FOR IMMUNIZATION] Onset: 06-25-2021 Episodic Lung disease due to external agents (10 sources) 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; Translations: [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] Onset: 07-02-2023 Resolved: 05-31-2024 05-31-2024 Chronic Malaise and fatigue (1 source) Other fatigue; Translations: [OTHER FATIGUE] Onset: 06-14-2021 Episodic Neoplasms of unspecified nature or uncertain behavior (17 sources) Monoclonal gammopathy of uncertain significance; Translations: [Monoclonal gammopathy] Onset: 09-09-2023 Resolved: 05-31-2024 Chronic Non-Hodgkin`s lymphoma (20 sources) Malignant lymphoma; Translations: [Diffuse non-Hodgkin's lymphoma, large cell (clinical)] Onset: 02-21-2013 Resolved: 05-31-2024 02-24-2019 Chronic Non-Hodgkin`s lymphoma (20 sources) History of B-cell lymphoma; Translations: [History of malignant lymphoma] Onset: 05-21-2023 Resolved: 05-31-2024 10-28-2022 Episodic Nutritional deficiencies (20 sources) Cobalamin deficiency; Translations: [Deficiency of other specified B group vitamins] Onset: 07-13-2017 Resolved: 05-31-2024 07-13-2017 Episodic Other aftercare (1 source) 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; Translations: [M[facility] CURRENT USE OF ASPIRIN] Onset: 05-28-2021 Episodic Other aftercare (1 source) Other supervisor long goods (current) drug therapy; Translations: [OTH [facility] CURRENT DRUG THERAPY] Onset: 05-28-2021 Episodic Other bone disease and musculoskeletal deformities (4 sources) Osteolysis, unspecified site; Translations: [OSTEOLYSIS UNSPECIFIED SITE] Onset: 09-10-2021 Episodic Other circulatory disease (7 sources) Personal history of transient ischemic attack (TIA), and cerebral infarction without residual deficits; Translations: [PERS HX TIA AND CI NO RESID DEFICIT] Onset: 09-06-2021 Episodic Other circulatory disease (10 sources) History of cerebrovascular accident; Translations: [Personal history of transient ischemic attack (TIA), and cerebral infarction without residual deficits] Onset: 05-23-2022 Resolved: 05-31-2024 05-31-2024 Episodic Other connective tissue disease (1 source) Muscle weakness (generalized); Translations: [MUSCLE WEAKNESS GENERALIZED] Onset: 05-28-2021 Episodic Other ear and sense organ disorders (12 sources) Hearing loss; Translations: [Unspecified hearing loss, unspecified ear] Onset: 05-21-2023 Resolved: 05-31-2024 04-07-2023 Chronic Other fractures (10 sources) Compression fracture of thoracic spine; Translations: [Wedge compression fracture of unspecified thoracic vertebra, subsequent encounter for fracture with routine healing] Onset: 05-31-2024 Resolved: 05-31-2024 05-31-2024 Episodic Other hereditary and degenerative nervous system conditions (15 sources) Essential tremor; Translations: [Essential tremor] Onset: 07-31-2021 Resolved: 05-31-2024 10-28-2022 Chronic Other lower respiratory disease (3 sources) Shortness of breath; Translations: [SHORTNESS OF BREATH] Onset: 05-15-2021 Episodic Other lower respiratory disease (1 source) Hypoxemia; Translations: [HYPOXEMIA] Onset: 05-28-2021 Episodic Other lower respiratory disease (10 sources) Cough; Translations: [Cough] Onset: 07-17-2021 Resolved: 05-31-2024 05-31-2024 Episodic Other lower respiratory disease (10 sources) Dyspnea; Translations: [Dyspnea, unspecified] Onset: 07-17-2021 Resolved: 05-31-2024 05-31-2024 Episodic Other lower respiratory disease (10 sources) Hypoxia; Translations: [Hypoxemia] Onset: 11-23-2018 Resolved: 05-31-2024 05-31-2024 Episodic Other lower respiratory disease (10 sources) Wheezing; Translations: [Wheezing] Onset: 07-02-2023 Resolved: 05-31-2024 05-31-2024 Episodic Other nervous system disorders (15 sources) Neuropathy of upper limb; Translations: [Unspecified mononeuropathy of unspecified upper limb] Onset: 05-21-2023 Resolved: 05-31-2024 01-22-2023 Chronic Other nutritional; endocrine; and metabolic disorders (12 sources) Obesity caused by energy imbalance; Translations: [Other obesity due to excess calories] Onset: 05-31-2024 Resolved: 05-31-2024 10-16-2023 Chronic Other nutritional; endocrine; and metabolic disorders (12 sources) Severe obesity; Translations: [Morbid (severe) obesity due to excess calories] Onset: 08-03-2020 Resolved: 05-31-2024 05-27-2023 Chronic Comment on above: Noted in 05/21/2023 U T page 1 note, added per outpatient CDI policy. Other screening for suspected conditions (not mental disorders or infectious disease) (10 sources) Computed tomography result abnormal; Translations: [Abnormal findings on diagnostic imaging of other specified body structures] Onset: 07-02-2023 Resolved: 05-31-2024 05-31-2024 Chronic Other screening for suspected conditions (not mental disorders or infectious disease) (16 sources) Raised prostate specific antigen; Translations: [Abnormal findings on diagnostic imaging of heart and coronary circulation] Onset: 05-28-2021 Resolved: 05-31-2024 05-23-2019 Episodic Other skin disorders (11 sources) Mass of lower limb; Translations: [Localized swelling, mass and lump, unspecified lower limb] Onset: 04-15-2024 Resolved: 05-31-2024 02-15-2024 Episodic Other upper respiratory disease (13 sources) Nasal congestion; Translations: [Nasal congestion] Onset: 05-21-2023 Resolved: 05-31-2024 01-22-2023 Episodic Pneumonia (except that caused by tuberculosis or sexually transmitted disease) (14 sources) Pneumonia, unspecified organism; Translations: [Recurrent pneumonia] Onset: 07-17-2021 Resolved: 05-31-2024 Episodic Pulmonary heart disease (14 sources) Pulmonary hypertension; Translations: [Pulmonary hypertension, unspecified] Onset: 07-02-2023 Resolved: 05-31-2024 05-27-2023 Chronic Comment on above: Noted in 05/21/2023 U T page 1, added per outpatient CDI policy. Residual codes; unclassified (12 sources) Obstructive sleep apnea syndrome; Translations: [Obstructive sleep apnea (adult) (pediatric)] Onset: 04-15-2024 Resolved: 05-31-2024 10-16-2023 Chronic Residual codes; unclassified (10 sources) Bilateral lower limb edema; Translations: [Localized edema] Onset: 08-06-2022 Resolved: 05-31-2024 05-31-2024 Episodic Residual codes; unclassified (10 sources) Bilateral upper arm edema; Translations: [Localized edema] Onset: 07-02-2023 Resolved: 05-31-2024 05-31-2024 Episodic Screening and history of mental health and substance abuse codes (17 sources) Ex-smoker; Translations: [Personal history of nicotine dependence] Onset: 05-28-2021 Resolved: 05-31-2024 05-23-2019 Episodic Thyroid disorders (20 sources) Hypothyroidism; Translations: [Hypothyroidism, unspecified] Onset: 11-23-2018 Resolved: 05-31-2024 02-24-2019 Chronic Unclassified (1 source) Other ventricular tachycardia; Translations: [Other ventricular tachycardia] Onset: 07-28-2023 Results Test Name Value Interpretation Reference Range Facil ity Ambulatory Visit Summaryon 0 08-25-2024 Ambulatory Visit Summary Ambulatory Visit Summary CHIKI JUAREZ :1945 Visit Date:08/25/2024 Ambulatory Visit Instructions Your Diagnosis BMI 35.0-35.9,adult Obesity (BMI 35.0-39.9 without comorbidity) COPD with asthma Chronic diastolic heart failure Chronic hypoxic respiratory failure Chronic kidney disease, stage 3a Former smoker Your Care Team Attending Physician - Pito Patterson MD Primary Care Physician - Pito Patterson MD This Is Your Medications List Misc Prescription (Electric scooter) Misc Prescription (Lissa Macias, 5 years.) Misc Prescription (Nebulizer accessory set) Oxygen (Oxygen - for Home) albuterol (albuterol 0.083% Inh Kasie 3 mL) aspirin (aspirin 81 mg Oral EC Tab) budesonide (budesonide 0.5 mg/2 mL Inh Susp) calcium-vitamin D cyanocobalamin (Vitamin B12) furosemide (furosemide 40 mg Tab) levothyroxine (levothyroxine 100 mcg (0.1 mg) Tab) metoprolol (metoprolol 25 mg ER Tab) montelukast (montelukast 10 mg Tab) potassium chloride (potassium chloride 10 mEq Cap-ER) sodium chloride (Hyper-Flaco 3.5% inhalation solution) tezepelumab (Tezspire Pre-filled Pen 210 mg/1.91 mL subcutaneous solution) tiotropium (tiotropium 18 mcg Inh Cap) Procedures Performed Cystoscopy (03/31/2023), Cardiac pacemaker (2019), Transrectal biopsy of prostate using ultrasound (US) guidance (03/10/2019), Cystourethroscopy (03/12/2010), Lymphadenectomy of sentinel lymph node (08/17/2006), Cancer of skin, Skin cancer. Discharge Vitals Heart Rate (Peripheral) 60 Respiratory Rate 18 Blood Pressure 138/82 Height 168 cm Height 66 in Weight 101.3 kg Weight 223.328 lb BMI 35.89 What to do next Scheduled Follow-Up Appointments 2024 1:15 PM EDT With: Navarro VENTURA, Pito Davidson Where: [address] [address]- Thursday 8:00 AM EDT With: Where: [address] [address]- Thursday 9:45 AM EDT With: MIKE VENTURA, Oni Sewell Where: [facility] [address] [place] [address]- Medications What How Much When Why Instructions Unchanged albuterol (albuterol 0.083% Inh Kasie 3 mL) See instructions INHALE 1 VIAL VIA NEBULIZER EVERY 4 HOURS Unchanged aspirin (aspirin 81 mg Oral EC Tab) 1 Tablets By Mouth Every day Unchanged budesonide (budesonide 0.5 mg/ 2 mL Inh Susp) See instructions USE 1 VIAL VIA NEBULIZER TWICE A DAY Unchanged calcium-vitamin D Unchanged cyanocobalamin (Vitamin B12) Unchanged furosemide (furosemide 40 mg Tab) 1 Tablets By Mouth Every day Unchanged levothyroxine (levothyroxine 100 mcg (0.1 mg) Tab) See instructions TAKE 1 TABLET BY MOUTH EVERY DAY Unchanged metoprolol (metoprolol 25 mg ER Tab) 1 Tablets By Mouth Every day Unchanged Misc Prescription (Electric scooter) See instructions Hearing loss For Debility Unchanged Misc Prescription (Handicap Gilberto, 5 years.) See instructions COPD with asthma Pulmonary hypertension Macrocytic anemia Cardiac pacemaker in situ Chronic hypoxic respiratory failure Hypothyroid Decreased ambulation status BMI 35.0-35.9,adult Class 1 obesity due to excess calories in adult Former smoker Handicap Gilberto, 5 years. Unchanged Misc Prescription (Nebulizer accessory set) See instructions Hypothyroid Prostate nodule Neuropathy, arm COPD with asthma pt to use nebulizer as prescribed for COPD Unchanged montelukast (montelukast 10 mg Tab) Unchanged Oxygen (Oxygen - for Home) 4 Liter/minute Every day Oxygen - patient states his shot polisher just increased this to 4LPM Unchanged potassium chloride (potassium chloride 10 mEq Cap-ER) 1 Capsules By Mouth Every day Unchanged sodium chloride (Hyper-Flaco 3.5% inhalation solution) See instructions per neulizer BID, skip one dose with increased swelling in feet- per patient Unchanged tezepelumab (Tezspire Pre-filled Pen 210 mg/ 1.91 mL subcutaneous solution) 210 Milligram Subcutaneous Every 4 weeks patient not sure of dose Unchanged tiotropium (tiotropium 18 mcg Inh Cap) See instructions INHALE 2 INHALATIONS FROM THE CONTENTS OF 1 CAPSULE BY MOUTH VIA INHALATION DEVICE ONCE DAILY Allergies No Known Allergies Problems Ongoing - Any problem that you are currently receiving treatment for. Asymptomatic microscopic hematuria B12 deficiency BMI 35.0-35.9,adult BPH with urinary obstruction Cardiac pacemaker in situ Chronic diastolic heart failure Chronic hypoxic respiratory failure Chronic kidney disease, stage 3a Compression fracture of thoracic vertebra with routine healing, unspecified thoracic vertebral level, subsequent encounter COPD with asthma Decreased ambulation status Essential tremor Former smoker Hearing loss History of B-cell lymphoma History of prostate cance (more content not included)... Normal [facility] Family Medicine Office/Clini c Noteon 08-25-2024 Family Medicine Office/Clinic Note Family Medicine Office/Clinic Note Chief Complaint 3m follow up Congestion not fully resolved with current treatment regimen. HPI Staff 3m med follow up to CHF, COPD, CKD & hypoxic resp failure Patient is here for follow up on COPD: Feeling controlled on medication: yes Need medication refilled: no Do you use O2? yes 4L per minute eGFR: 52 mL/min/1.73 m2 Low (10/19/23 08:50:00) Creatinine: 1.4 mg/dL High (10/19/23 08:50:00) Concerns: Sinus Congestion History of Present Illness The patient is a 79-year-old male presenting with respiratory symptoms, primarily congestion, which has fluctuated in severity. The patient reports that treatment with antibiotics and choroxetan initially alleviated these symptoms, though the congestion returned in a less severe form. No chronic regimen of Zyrtec has been administered previously, and the patient is open to trialing Zyrtec for congestion relief. The shot polisher, overseeing ongoing respiratory management, is scheduled for a follow-up visit next week. The patient has a history of COPD with asthma, exacerbated in colder months, traditionally treated with antibiotics. However, concerns were raised about antibiotic resistance and the standard of care. Chronic diastolic heart failure, chronic hypoxic respiratory failure, chronic kidney disease stage 3a, and obesity with a BMI of 35.0-35.9, contribute to the complexity of the patient's care. The patient also has a history of monoclonal gammopathy of undetermined significance (MGUS) and past B-cell lymphoma, currently not requiring active oncology follow-up. Former smoking history was noted. Blood sugars were checked approximately three to four months ago, with recorded hemoglobin A1c at 6.1%. Review of Systems PHQ Score Initial Depression Screen Score: 1 SCORE Physical Exam Vitals & Measurements HR: 60(Peripheral) RR: 18 BP: 138/82 SpO2: 98% HT: 66 in HT: 168 cm WT: 101.3 kg WT: 223.328 lb BMI: 35.89 General: alert, no acute distress ENMT: oral mucosa moist Cardiovascular: Regular rate and rhythm, normal peripheral perfusion Respiratory: Lungs clear to auscultation, respirations non labored Extremities: no deformity, no trauma Neurological: oriented x 4, level of consciousness appropriate for age, CN II-XII intact, motor strength equal & normal bilaterally, speech normal Abdomen: Soft, Non-tender, Non-distended, + Bowel sounds Assessment/Plan 1. BMI 35.0-35.9,adult (Z68.35: Body mass index [BMI] 35.0-35.9, adult) BMI education added 2. Obesity (BMI 35.0-39.9 without comorbidity) (E66.9: Obesity, unspecified) Address weight management per current guidelines. 3. COPD with asthma (J44.9: Chronic obstructive pulmonary disease, unspecified) Monitor exacerbation pattern and consult shot polisher regarding chronic antibiotic therapy approval. Explore potential for chronic Zyrtec use for congestion relief upon shot polisher's input. 4. Chronic diastolic heart failure (I50.32: Chronic diastolic (congestive) heart failure) Continue with current management; stable noted. 5. Chronic hypoxic respiratory failure (J96.11: Chronic respiratory failure with hypoxia) Maintain current respiratory support measures, acknowledging complexity with COPD and asthma. 6. Chronic kidney disease, stage 3a (N18.31: Chronic kidney disease, stage 3a) Continue monitoring renal function; maintain treatment regimen addressing co-existing conditions. 7. Former smoker (Z87.891: Personal history of nicotine dependence) Please continue to not smoke. 8. Nasal congestion (R09.81) Initiate trial of Zyrtec for symptomatic relief. Monitor symptom progress and consider consultation based on response. 9. Personal history of non-Hodgkin lymphomas (Z85.72) No active oncology follow-up indicated currently. 10. Monoclonal gammopathy (D47.2) Follow-up scheduled for November with hematology review underway. Orders: cetirizine, 10 mg = 1 tab(s), Oral, Daily, # 90 tab(s), Refills(s) 0, Pharmacy: [facility], 168, cm, 08/25/24 11:21:00 EST, Height/Length Dosing, 101.3, kg, 08/25/24 11:21:00 EST, Weight Dosing salmeterol, 50 mcg, 1 EA, Inhalation, q12hr, 3 EA, Refill(s) 3, [facility], 168, cm, 12/01/23 14:24:00 EDT, Height/Length Dosing, 103, kg, 12/01/23 14:24:00 EDT, Weight Dosing 79-year-old male with a history of COPD with asthma, chronic diastolic heart failure, chronic hypoxic respiratory failure, and obesity, presenting with nasal congestion. The respiratory symptoms have been inconsistently managed with current treatment but overall clinical stability is noted. The chronicity and complexity of existing conditions are acknowledged, and potential alterations in management were discussed, notably the consideration of Zyrtec to relieve nasal symptoms. Follow-up No qualifying data available Problem List/Past Medical History Ongoing Asymptomatic microscopic hematuria B12 deficiency BMI 35.0-35.9,adult BPH with urinary obstruction Card (more content not included)... Normal [facility] Comment on above: Result Comment: Elec tronically Signed By: Navarro VENTURA, Pito Underwood.br\Date and Time Signed: 08/25/24 12:44 EST No Panel InformationOrdered By: Malou Wynne on 08-04-[address] [facility] Ambulatory Visit Summaryon 1 09-12-2023 Ambulatory Visit Summary Ambulatory Visit Summary CHIKI JUAREZ :1945 Visit Date:07/13/2024 Ambulatory Visit Instructions Your Diagnosis Sinus complaint BMI 36.0-36.9,adult Exogenous obesity Former smoker Your Care Team Attending Physician - MARKUS CERNA CNP Primary Care Physician - Pito Patterson MD This Is Your Medications List Misc Prescription (Electric scooter) Misc Prescription (Lissa Macias, 5 years.) Misc Prescription (Nebulizer accessory set) Oxygen (Oxygen - for Home) albuterol (albuterol 0.083% Inh Kasie 3 mL) aspirin (aspirin 81 mg Oral EC Tab) budesonide (budesonide 0.5 mg/2 mL Inh Susp) calcium-vitamin D cyanocobalamin (Vitamin B12) furosemide (furosemide 40 mg Tab) levothyroxine (levothyroxine 100 mcg (0.1 mg) Tab) metoprolol (metoprolol 25 mg ER Tab) montelukast (montelukast 10 mg Tab) potassium chloride (potassium chloride 10 mEq Cap-ER) salmeterol (Serevent Diskus 50 mcg inhalation powder) sodium chloride (Hyper-Flaco 3.5% inhalation solution) tezepelumab (Tezspire Pre-filled Pen 210 mg/1.91 mL subcutaneous solution) tiotropium (tiotropium 18 mcg Inh Cap) Procedures Performed Cystoscopy (03/31/2023), Cardiac pacemaker (2019), Transrectal biopsy of prostate using ultrasound (US) guidance (03/10/2019), Cystourethroscopy (03/12/2010), Lymphadenectomy of sentinel lymph node (08/17/2006), Cancer of skin. Discharge Vitals Temperature (Oral) 36.4 ???C Heart Rate (Peripheral) 68 Respiratory Rate 20 Blood Pressure 116/70 Height 168 cm Height 66 in Weight 101.9 kg Weight 224.651 lb BMI 36.1 What to do next Scheduled Follow-Up Appointments Thursday 1:00 PM EST With: Pito Patterson MD Where: [address] [phone]- Thursday 8:00 AM EDT With: Where: [address] [address]- Thursday 9:45 AM EDT With: MIKE VENTURA, Oni Sewell Where: [facility] [address] [address]- Medications What How Much When Why Instructions Unchanged albuterol (albuterol 0.083% Inh Kasie 3 mL) See instructions INHALE 1 VIAL VIA NEBULIZER EVERY 4 HOURS Unchanged aspirin (aspirin 81 mg Oral EC Tab) 1 Tablets By Mouth Every day Unchanged budesonide (budesonide 0.5 mg/ 2 mL Inh Susp) See instructions USE 1 VIAL VIA NEBULIZER TWICE A DAY Unchanged calcium-vitamin D Unchanged cyanocobalamin (Vitamin B12) Unchanged furosemide (furosemide 40 mg Tab) 1 Tablets By Mouth Every day Unchanged levothyroxine (levothyroxine 100 mcg (0.1 mg) Tab) See instructions TAKE 1 TABLET BY MOUTH EVERY DAY Unchanged metoprolol (metoprolol 25 mg ER Tab) 1 Tablets By Mouth Every day Unchanged Misc Prescription (Electric scooter) See instructions Hearing loss For Debility Unchanged Misc Prescription (Handicap Gilberto, 5 years.) See instructions COPD with asthma Pulmonary hypertension Macrocytic anemia Cardiac pacemaker in situ Chronic hypoxic respiratory failure Hypothyroid Decreased ambulation status BMI 35.0-35.9,adult Class 1 obesity due to excess calories in adult Former smoker Handicap Gilberto, 5 years. Unchanged Misc Prescription (Nebulizer accessory set) See instructions Hypothyroid Prostate nodule Neuropathy, arm COPD with asthma pt to use nebulizer as prescribed for COPD Unchanged montelukast (montelukast 10 mg Tab) Unchanged Oxygen (Oxygen - for Home) 4 Liter/minute Every day Oxygen - patient states his shot polisher just increased this to 4LPM Unchanged potassium chloride (potassium chloride 10 mEq Cap-ER) 1 Capsules By Mouth Every day Unchanged salmeterol (Serevent Diskus 50 mcg inhalation powder) 1 Each Inhalation Every 12 hours Unchanged sodium chloride (Hyper-Flaco 3.5% inhalation solution) See instructions per neulizer BID, skip one dose with increased swelling in feet- per patient Unchanged tezepelumab (Tezspire Pre-filled Pen 210 mg/ 1.91 mL subcutaneous solution) 210 Milligram Subcutaneous Every 4 weeks patient not sure of dose Unchanged tiotropium (tiotropium 18 mcg Inh Cap) See instructions INHALE 2 INHALATIONS FROM THE CONTENTS OF 1 CAPSULE BY MOUTH VIA INHALATION DEVICE ONCE DAILY Allergies No Known Allergies Problems Ongoing - Any problem that you are currently receiving treatment for. Asymptomatic microscopic hematuria B12 deficiency BPH with urinary obstruction Cardiac pacemaker in situ Chronic diastolic heart failure Chronic hypoxic respiratory failure Chronic kidney disease, stage 3a Compression fracture of thoracic vertebra with routine healing, unspecified thoracic vertebral level, subsequent encounter COPD with asthma Decreased ambulation status Essential tremor Former smoker Hearing loss History of B-cell lymphoma Histor (more content not included)... Normal [facility] Family Medicine Office/Clini c Noteon 07-13-2024 Family Medicine Office/Clinic Note Family Medicine Office/Clinic Note HPI Staff Chiki is a 79 year old female presenting with possible sinus infection Onset: yesterday morning Headache- yes Earache- no Sinus Congestion- yes very bad Rhinorrhea- yes mostly clear Sore Throat- no Cough- yes but has this all the time wheezing- no Dyspnea on exertion- yes but normal for him with his health issues ( Has O2 at home) Orthopnea- Trouble laying flat/breathing through nose: yes Lung Hx (asthma, recurring bronchitis/chest colds, COPD)- no Fevers/chills- no GI symptoms- no Has tried coricidin [facility] I have reviewed and verified the staff HPI to be accurate for this encounter. History of Present Illness 79 [address] patient of Dr. Patterson presents today for evaluation of sinus pressure. He has a hx of COPD & CKD.He reports his symptoms started yesterday. He reports a headache , sinus pain & pressure, and some slight shortness of breath. He reports he took some OTC coricidin with no improvement. He reports the last time he had these symptoms, he ended up with pneumonia and does not want to have this happen again. Review of Systems PHQ Score Initial Depression Screen Score: 0 SCORE Constitutional: no fever, no chills, no sweats, no weakness Skin: no Jaundice, no rash, no lesions, nopetechiae ENMT: no ear pain, no sore throat, no congestion, no hoarseness Respiratory: no shortness of breath, no cough, no orthopnea, no wheezing Cardiovascular: no chest pain, no palpitations, no edema Musculoskeletal: no back pain, no trauma Neurologic: no headache, no dizziness, no numbness, no weakness Psychiatric: no sleeping problems, no irritability, no mood swings/depression. Additional ROS info: Except as noted in the above Review of Systems and in the History of Present Illness all other systems have been reviewed and are negative or noncontributory. Physical Exam Vitals & Measurements T: 36.4 ???C(Oral) HR: 68(Peripheral) RR: 20 BP: 116/70 SpO2: 96% HT: 66 in HT: 168 cm WT: 101.9 kg WT: 224.651 lb BMI: 36.1 General: alert, no acute distress ENMT: TM's clear, oral mucosa moist, yes pharyngeal erythema or exudate; uvula edematous; positive maxillary tenderness Cardiovascular: regular rate and rhythm, normal peripheral perfusion Respiratory: Lungs CTA, respirations non labored Extremities: no deformity, no trauma Neurological: oriented x 4, LOC appropriate for age speech normal Assessment/Plan 1. Sinus complaint (R09.89: Other specified symptoms and signs involving the circulatory and respiratory systems) Ordered: azithromycin, = 1 packet(s), Oral, As Directed, as directed on package labeling, X 5 day(s), # 6 tab(s), Refills(s) 0, Pharmacy: [facility]/pharmacy #[id number], 168, cm, 07/13/24 10:34:00 EST, Height/Length Dosing, 101.9, kg, 07/13/24 10:34:00 EST, Weight Dosing methylPREDNISolone, = 1 packet(s), Oral, As Directed, as directed on package labeling, X 6 day(s), # 21 tab(s), Refills(s) 0, Pharmacy: [facility]/pharmacy #[id number], 168, cm, 07/13/24 10:34:00 EST, Height/Length Dosing, 101.9, kg, 07/13/24 10:34:00 EST, Weight Dosing 2. BMI 36.0-36.9,adult (Z68.36: Body mass index [BMI] 36.0-36.9, adult) The standard range for ages 18 and older is >=18.5 and < 25 kg/m2. Your BMI today was above this range, this falls in the overweight to obese category and there are medical benefits to weight loss. We can offer counselling, referral, and/or medical support in addressing this problem. Your BMI and weight management will be followed at subsequent visits. 3. Exogenous obesity (E66.09: Other obesity due to excess calories) The standard range for ages 18 and older is >=18.5 and < 25 kg/m2. Your BMI today was above this range, this falls in the overweight to obese category and there are medical benefits to weight loss. We can offer counselling, referral, and/or medical support in addressing this problem. Your BMI and weight management will be followed at subsequent visits. 4. Former smoker (Z87.891: Personal history of nicotine dependence) Encouraged to continue is a non-smoker Follow-up No qualifying data available Problem List/Past Medical History Ongoing Asymptomatic microscopic hematuria B12 deficiency BPH with urinary obstruction Cardiac pacemaker in situ Chronic diastolic heart failure Chronic hypoxic respiratory failure Chronic kidney disease, stage 3a Compression fracture of thoracic vertebra with routine healing, unspecified thoracic vertebral level, subsequent encounter COPD with asthma Decreased ambulation status Essential tremor Former smoker Hearing loss History of B-cell lymphoma History of prostate cancer Hx of cerebrovascular disorder Hyperglycemia Hypothyroid Macrocytic anemia Mass of leg MGUS (monoclonal gammopathy of unknown significance) Neuropathy, arm Obesity due to excess calories JUANA (obstructive sleep apnea) Prostate nodule Pulmonary hypertension Severe obesity Ventral hernia Historical No qual (more content not included)... Normal [facility] Comment on above: Result Comment: Elec tronically Signed By: MARKUS CERNA CNP\.otf\Date and Time Signed: 07/13/24 10:55 EST Oswaldo 06-10-2024 RAINA Telephone (DONITA) CHIKI JUAREZ ([id number]) 1945 M Date Time Provider Department 06/10/24 VALERIE MAYES During your visit today, we recorded the following information about you: Valerie Mayes, SANTI 06/10/2024 8:[address] Mayra Berg, [facility] called and spoke with [facility]M yesterday with concerns of PET results: CHEST: * AP window/left hilar mildly avid 0.7 cm lymph node is favored to be reactive, lymphomatous involvement less likely, not entirely excluded. No prior study available for comparison. BRM reviewed and will repeat CT Chest in 6 months. Called and spoke with Dr Berg's office and they will update. Call back number provided with any additional needs or concerns. BRM CT Chest pended for review and sign PSS: Please call to schedule prior to return visit 11/21/24 SANTI Rojas, [facility] 06/10/2024 10:55 AM Signed A voicemail was left on Chiki's phone to return our call to schedule a CT for November. Shea Kolb PSS Valerie Mayes RN 06/13/2024 9:36 AM Signed notified and transferred to PSS to schedule CT as recommended prior to return visit with BRM. SANTI Rojas, [facility] 06/13/2024 10:38 AM Signed Patient is scheduled 11/15/24 at 1:30 PM Shea Kolb PSS Allergies As of Date: 06/10/2024 Noted Allergy Reaction SPIRONOLACTONE 09/18/2021 14 - Other: See Comments Comments: Leg cramps, Hyperkalemia Date Reviewed: 06/06/2024 Reviewed by: Jodi Montague MA - Fully Assessed Reason for Visit: Pet results [Other] Primary Visit Diagnosis:Localized enlarged lymph nodes [R59.0] Order(s):CT CHEST W IVCON [[id number]] Order #: [id number] FUTURE [] iv contrast (will be provided with radiology test)CT Chest W -Inject, intravenously, once for 1 dose.No IV access, insert saline lock prior to the beginning of sedation, infusion, injection of imaging exam. Discontinue saline lock post exam. If Pt. has a central line or IVAD, may access for administration according to line specific nursing protocol. Once exam is complete flush line and de-access according to line specific nursing protocol in the CT contrast administration guidelines link.Disp: 1 EachRfl: 0 Prescriptions as of 06/13/2024 - TEZSPIRE 210 mg/1.91 mL (110 mg/mL) injection - albuterol (PROVENTIL) 2.5 mg /3 mL (0.083 %) nebulizer solution albuterol sulfate 2.5 mg/3 mL (0.083 %) solution for nebulization INHALE 1 VIAL VIA NEBULIZER EVERY 4 HOURS - potassium chloride SR (MICRO-K) 10 mEq [...] mg-codeine 30 mg tablet - budesonide (PULMICORT) 1 mg/2 mL nebulizer solution 2 mL. - ipratropium-albuterol (DUONEB) 0.5 mg-3 mg(2.5 mg [...] before breakfast. Problem List As Of Date 06/10/2024 Noted Resolved Diffuse large B cell lymphoma [C83.30] 02/21/2013 B12 deficiency [E53.8] 07/13/2017 Prescriptions ordered this encounter Disp Refills Start End IV CONTRAST (RADIOLOGY PROCEDURE) 1 Ea* 0 06/10/2024 06/11/2024 Class: In Office Sig: CT Chest W -Inject, intravenously, once for 1 dose.No IV access, insert saline lock prior to the beginning of sedation, infusion, injection of imaging exam. Discontinue saline lock post exam. If Pt. has a central line or IVAD, may access for administration according to line specific nursing protocol. Once exam is complete flush line and de-access according to line spec (more content not included)... Normal [facility] CNOVSPon 06-06-2024 CNOVSP Visit (SP) Office (HEMAS[place]) CHIKI JUAREZ ([id number]) 1945 M Date Time Provider Department 06/06/24 1:45 PM TYLER DRAPER During your visit today, we recorded the following information about you: Temperature Pulse Respiration Blood pressure 97 degrees 74/minute 18/minute 109/59 Weight 100.9 kg Tyler Draper MD 06/08/2024 5:29 AM Addendum PATIENT NAME: Chiki Juarez DATE: 06/06/2024 PRIMARY CARE PHYSICIAN: Dr. Pito Patterson OTHER PHYSICIANS: Dr. Mayra Berg (Pulmonary [facility]), Dr. Crawley Portions of this encounter note have been copied from my note from 04/19/2024 and has been updated where appropriate, and reflect my current medical decision making from today. 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 Herrera). INTERIM HISTORY: At the patient's last visit here he had recent radiographic evidence of possible inguinal lymphadenopathy contributing to leg swelling. For this reason a PET scan was done which showed no pathologic lymphadenopathy or other evidence of lymphoma. At his last visit he complained of a skin lesion over his left cheek and was referred to dermatology. 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 He underwent surgical resection per ENT on 06/01/2024. He has had no other significant medical changes. Other than the above he feels well. MEDICATIONS: TEZSPIRE 210 mg/1.91 mL (110 mg/mL) injection albuterol (PROVENTIL) 2.5 mg /3 mL (0.083 %) nebulizer solution albuterol sulfate 2.5 mg/3 mL (0.083 %) solution for nebulization INHALE 1 VIAL VIA NEBULIZER EVERY 4 HOURS potassium chloride SR (MICRO-K) 10 mEq CR [...] 300 mg-codeine 30 mg tablet budesonide (PULMICORT) 1 mg/2 mL nebulizer solution 2 mL. ipratropium-albuterol (DUONEB) 0.5 mg-3 mg(2.5 mg base)/3 [...] intracerebral hemorrhage Hypothyroidism Hypoxemia Multiple myeloma (HCC) Pulmonary edema Stroke (HCC) Thyroid disease aquired due to [...] seizures or tremors PHYSICAL EXAM: Vitals: BP 109/59 Pulse 74 Temp 3 (more content not included)... Normal [facility] 06-01-2024 L Specimen: [id number] Received: 06/01/24 Status: GABBY Giron Num: [id number] Spec Type: Surgical Subm Dr: Connor Crawley,DO Tissues: A Skin-Other than Cyst, tag, debridement or plastic repair (L CHEEK LESION) B Skin-Other than Cyst, tag, debridement or plastic repair (SCALP LESION) Procedures: HE/8, Gross/Micro L4/2, FS HE/8 Age/ Patient Sex Location Account Attending Physician Chiki Juarez 79/M [place] [id number] Connor Crawley, SPEC NUM: [id number] RECD: 06/01/24 STATUS: GABBY GIRON NUM: [id number] MARIAN: 06/01/[address] [facility] [address]: Connor Crawley DO ENTERED: 06/01/[address] [facility] DR: JOSE TYPE: Surgical DEPT: S ENTERED BY: [id number] RECV BY: [id number] ORDERED: HE/8, Gross/Micro L4/2, FS HE/8 ORDERED: HE/8, Gross/Micro L4/2, FS HE/8 Pathological Diagnosis A. Skin lesion from left cheek: Recent biopsy site with scarring chronic inflammation and fibrosis with focal intraepidermal squamous dysplasia. All margins are free. B. Skin lesion from scalp: Squamous cell carcinoma. Surgical margins are free. Clinical Information Skin cancer Gross Description Part a received fresh in container for frozen with the correct patient's name and left cheek lesion and consists of an oriented marlow-pink ellipse of skin measuring 2.6 cm from the 12:00 to 6:00, 1.2 cm from the 3:00 to 9:00, and excised to a depth of 0.5 cm. The specimen is oriented with 2 black sutures designated as short 12:00, long 3:00. The specimen is inked 12:00 to 3:00 blue, 3:00 to 6:00 orange, 6:00 to 9:00 green, 9:00 to 12:00 red, and the deep is inked black. The specimen is serially sectioned from the 12:00 to the 6:00 into 7 sections. The specimen is entirely submitted for frozen in cassettes A1-A2. A1 tips trisected A2 mid sections Part B received fresh in container for frozen with the correct patient's name and scalp Specimen: [id number] Received: 06/01/24 Status: GABBY Giron Num: [id number] Spec Type: Surgical Subm Dr: Connor Crawley DO Tissues: A Skin-Other than Cyst, tag, debridement or plastic repair (L CHEEK LESION) B Skin-Other than Cyst, tag, debridement or plastic repair (SCALP LESION) Procedures: HE/8, Gross/Micro L4/2, FS Patient: BerylstefanoChiki [id number] (Continued) Specimen: [id number] Received: 06/01/24 (Continued) Gross Description (Continued) Signed (signature on file) Randy Tillman MD 06/03/24 1151 Specimen: [id number] Received: 06/01/24 Status: GABBY Giron Num: [id number] Spec Type: Surgical Subm Dr: Connor Crawley DO Tissues: A Skin-Other than Cyst, tag, debridement or plastic repair (L CHEEK LESION) B Skin-Other than Cyst, tag, debridement or plastic repair (SCALP LESION) Procedures: HE, Gross/Micro L4/2, FS Patient: AnnChiki [id number] (Continued) Specimen: [id number] Received: 06/01/24-4265 (Continued) Gross Description (Continued) lesion and consists of a oriented marlow-pink skin excision measuring 2.0 cm from the 3:00 tip to the 9:00 tip, 1.0 cm from the 12:00 to the 6:00, and excised to a depth of 0.5 cm. The specimen is oriented with 2 black sutures designated as short 12:00, long 9:00. The specimen is inked 12:00 to 3:00 blue, 3:00 to 6:00 orange, 6:00 to 9:00 green,9:00 to 12:00 red, and the deep is inked black. The skin surface is marlow-pink with a centrally located lesion measuring 0.6 x 0.5 cm. The specimen is serially sectioned from the 3:00 tip to the 9:00 tip into 6 sections. The specimen is entirely submitted for frozen in cassettes B1-B2. B1 tips bisected B2 mid sections Intraoperative Diagnosis A. Skin lesion from left cheek: ; Biopsy site with marked chronic inflammation and intraepidermal focal dysplasia. Surgical margins are free . B. Skin lesion from scalp: Squamous cell carcinoma surgical margins are free. Frozen section performed by Dr. Nichols CPT Codes 88 305 x 2 [phone] x 2 Specimen: [id number] Received: 06/01/24 Status: GABBY Katerine Num: [id number] Spec Type: Surgical Subm Dr: Connor Crawley, Tissues: A Skin-Other than Cyst, tag, debridement or plastic repair (L CHEEK L (more content not included)... Normal [facility] Provider Letteron 06-01-2024 Provider Letter Provider Letter June 01, 2024 CHIKI JUAREZ [address] [place] [id number] : 1945 Dear Kwaku, We have been trying to reach you with no success. It is important that you return our call regarding your mobility scooter upon receiving this letter. Also, at the time of your call, please provide us with your current information. Thank you for your prompt attention to this matter. 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 Localized enlarged lymph nodes Personal history of non-Hodgkin lymphomas Hearing loss Your Care Team Attending Physician - Pito Patterson MD Primary Care Physician - Pito Patterson MD This Is Your Medications List Misc Prescription (Electric scooter) Contact prescribing physician if questions or concerns Misc Prescription (Handpham Macias, 5 years.) Misc Prescription (Nebulizer accessory set) Oxygen (Oxygen - for Home) albuterol (albuterol 0.083% Inh Kasie 3 mL) aspirin (aspirin 81 mg Oral EC Tab) budesonide (budesonide 0.5 mg/2 mL Inh Susp) calcium-vitamin D cyanocobalamin (Vitamin B12) furosemide (furosemide 40 mg Tab) levothyroxine (levothyroxine 100 mcg (0.1 mg) Tab) metoprolol (metoprolol 25 mg ER Tab) montelukast (montelukast 10 mg Tab) potassium chloride (potassium chloride 10 mEq Cap-ER) salmeterol (Serevent Diskus 50 mcg inhalation powder) sodium chloride (Hyper-Flaco 3.5% inhalation solution) tezepelumab (Tezspire Pre-filled Pen 210 mg/1.91 mL subcutaneous solution) tiotropium (tiotropium 18 mcg Inh Cap) [Image Removed: STOP]Stop taking these medications gabapentin (gabapentin 300 mg Cap) Procedures Performed Cystoscopy (03/31/2023), Cardiac pacemaker (2019), Transrectal biopsy of prostate using ultrasound (US) guidance (03/10/2019), Cystourethroscopy (03/12/2010), Lymphadenectomy of sentinel lymph node (08/17/2006). Discharge Vitals Temperature (Oral) 36.6 ?C Heart Rate (Peripheral) 76 Respiratory Rate 20 Blood Pressure 102/60 Height 168 cm Height 66 in Weight 100.0 kg Weight 220 lb BMI 35.43 What to do next Scheduled Follow-Up Appointments Thursday 1:00 PM EST With: Pito Patterson MD Where: [address] [address]- Thursday 8:00 AM EDT With: Where: [address] [address]- Thursday 9:45 AM EDT With: MIKE VENTURA, Oni Sewell Where: [facility] [address] [place] [address]- Medications What How Much When Why Instructions Changed Misc Prescription (Electric scooter) See instructions Hearing loss For Debility Printed Prescription Unchanged albuterol (albuterol 0.083% Inh Kasie 3 mL) See instructions INHALE 1 VIAL VIA NEBULIZER EVERY 4 HOURS Contact prescribing physician if questions or concerns Unchanged aspirin (aspirin 81 mg Oral EC Tab) 1 Tablets By Mouth Every day Contact prescribing physician if questions or concerns Unchanged budesonide (budesonide 0.5 mg/ 2 mL Inh Susp) See instructions USE 1 VIAL VIA NEBULIZER TWICE A DAY Contact prescribing physician if questions or concerns Unchanged calcium-vitamin D Contact prescribing physician if questions or concerns Unchanged cyanocobalamin (Vitamin B12) Contact prescribing physician if questions or concerns Unchanged furosemide (furosemide 40 mg Tab) 1 Tablets By Mouth Every day Contact prescribing physician if questions or concerns Unchanged levothyroxine (levothyroxine 100 mcg (0.1 mg) Tab) See instructions TAKE 1 TABLET BY MOUTH EVERY DAY Contact prescribing physician if questions or concerns Unchanged metoprolol (metoprolol 25 mg ER Tab) 1 Tablets By Mouth Every day Contact prescribing physician if questions or concerns Unchanged Misc Prescription (Handicap Placard, 5 years.) See instructions COPD with asthma Pulmonary hypertension Macrocytic anemia Cardiac pacemaker in situ Chronic hypoxic respiratory failure Hypothyroid Decreased ambulation status BMI 35.0-35.9,adult Class 1 obesity due to excess calories in adult Former smoker Handicap Placard, 5 years. Contact prescribing physician if questions or concerns Unchanged Misc Prescription (Nebulizer accessory set) See instructions Hypothyroid Prostate nodule Neuropathy, arm COPD with asthma pt to use nebulizer as prescribed for COPD Contact prescribing physician if questions or concerns Unchanged montelukast (montelukast 10 mg Tab) Contact prescribing physician if questions or concerns Unchanged Oxygen (Oxygen - for Home) 4 Liter/minute Every day Oxygen - patient states his shot polisher just increased this to 4LPM Contact prescribing physician if questions or concerns Unchanged potassium chloride (potassium chl (more content not included)... Normal [facility] Medicine Office/Clini c Noteon 05-17-2024 Family Medicine Office/Clinic Note Family Medicine Office/Clinic Note Chief Complaint Management of breathing difficulties, heart issues, and skin lesions. HPI Staff Chiki is a 79 year old male presenting for 3 month follow up copd, heart failure, CKD, and hypoxic resp failure Patient is here for follow up on COPD: Feeling controlled on medication: better than it has been but was told he'll be on them lifetime and can have some good life with the meds Need medication refilled: no Do you use O2? yes 4Liters flu: done @ [facility] 05/12/24 questions/concerns: saw dampener recently has at least 2 skin cancers ( head and cheek) and will be checked for more. c/o of a little bit of sinus congestions Some inconsistencies in his lab work meliza has on her phone but not a copy paper and they weren't sent here but should have been Had a PET scan done mid apr. no results here ( lump in groin) doesn't understand why we aren't getting results History of Present Illness The patient is a 79-year-old male presenting with concerns regarding multiple chronic conditions. The primary issues involve respiratory, cardiac, renal, and dermatological health. The patient has a history of Chronic Obstructive Pulmonary Disease (COPD), significantly impacting his airway functions, exacerbated by asthma and pulmonary hypertension. Pulmonary rehabilitation was completed recently, with modest improvement noted in breathing tests from prior evaluations. He experiences frequent dyspnea, exacerbated by physical exertion and deconditioning. The patient has chronic diastolic heart failure, requiring annual cardiologic review, with recent assurance of stable condition from the automatic driller and reamer. Chronic kidney disease stage 3a is managed concurrently, with past labs indicating renal function variability. Obstructive Sleep Apnea (JUANA) is actively managed, and there is a history of former nicotine dependence. 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 Contributing to the difficulty in breathing are repeated historical instances of pneumonia. Dermatologically, the patient is undergoing evaluation for a suspected skin cancer lesion on the head, with planned Mohs procedure pending. A past mass in the groin region suggests possible lymph node involvement, currently investigated with PET scan, with results pending. There is no mention of melanoma concerns. Additionally, there has been hyperglycemia reported, with associated minor wounds on the legs showing delayed healing. Historical treatments have included varied medications and interventions, with documented variability in lab parameters such as hemoglobin post-chemotherapy and creatinine, indicating active chronic disease management. Lifestyle factors include a history of excess caloric consumption leading to Class 1 obesity. The patient maintains adherence to therapeutic regimens, including the timely execution of breathing treatments. His active use of oxygen therapy at 4 liters reflects severe and ongoing respiratory insufficiency, yet insurance limitations complicate extended pulmonary rehab access. Review of Systems PHQ Score Initial Depression Screen Score: 0 SCORE Physical Exam Vitals & Measurements T: 36.6 ?C(Oral) HR: 76(Peripheral) RR: 20 BP: 102/60 SpO2: 95% HT: 66 in HT: 168 cm WT: 100.0 kg WT: 220 lb BMI: 35.43 General: alert, no acute distress ENMT: oral mucosa moist Cardiovascular: Regular rate and rhythm, normal peripheral perfusion Respiratory: Lungs with diminished breath sounds and crackles, respirations non labored Extremities: no deformity, no trauma, blood flow good, presence of black eschar on legs Neurological: oriented x 4, level of consciousness appropriate for age, CN II-XII intact, motor strength equal & normal bilaterally, speech normal Abdomen: Soft, Non-tender, Non-distended, + Bowel sounds Assessment/Plan 1. Chronic diastolic heart failure (I50.32: Chronic diastolic (congestive) heart failure) Annual cardiology evaluations are advised, with medication adjustments as needed based on longitudinal heart function studies. Monitoring and management of fluid status and medication adherence is essential. Ordered: Body Mass Index (BMI) documented 3008F Current tobacco non-user 1036F Depression Screening Negative 3352F Influenza immunization administered or previously received 4274F Most recent diastolic blood pressure <80 mm Hg 3078F Patient screen for fall risk: no falls in last year or 1 fall with no injury in last year 1101F Systolic BP <130 mm Hg (Most Recent) 3074F 2. Chronic hypoxic respiratory failure (J96.11: Chronic respiratory failure with hypoxia) Patient follows with Dr. Berg. Will put in a order for motorized scooter. Unsure if this will be qualified by insurance but will try. Ordered: Body Mass Index (BMI) documented 3008F Current tobacco non-user 1036F Depression Screening Negative 3352F Influ (more content not included)... Normal [facility] [place] Comment on above: Result Comment: Elec tronically Signed By: Navarro VENTURA, Pito Davidson\.otf\Date and Time Signed: 05/17/24 11:03 EDT Office Visiton 05-13-2024 Follow-up visit [id number] Tremaine Juarez 1945 M Date Provider Department Center 05/13/2024 DANIELLA CARDONA CARD [facility] Family History Problem Relation Age of Onset Stroke Father Family Status - Relation Status Age at Father Level of Service:85674 [place] OFFICE/OUTPATIENT ESTABLISHED LOW MDM 20 MIN Normal [facility] No Panel Informationon 05-03 [facility] Healthcare Type of biopsy: tangential Informed consent: discussed and consent obtained Informed consent comment: The risks and benefits of the biopsy were discussed. Risks include but are not limited to bleeding, infection, scarring, pain, and nerve damage. An opportunity to ask questions prior to the procedure was permitted and all questions were answered. Patient was prepped and draped in usual sterile fashion: area cleansed with alcohol. Anesthesia: the lesion was anesthetized in a standard fashion Anesthetic: 1% lidocaine w/ epinephrine 1-100,000 buffered w/ 8.4% NaHCO3 Instrument used: DermaBlade Hemostasis achieved with: electrodesiccation Outcome: patient tolerated procedure well Outcome comment: The specimen was placed in a prelabeled formalin container to be sent for pathology Post-procedure details: sterile dressing applied and wound care instructions given Post-procedure details comment: Emphasized need to contact clinic for any signs of infection, uncontrollable bleeding, or complications. Dressing type: bandage Additional details: Photo taken Amount of lidocaine used: 1.0 cc [facility] Type of biopsy: tangential Informed consent: discussed and consent obtained Informed consent comment: The risks and benefits of the biopsy were discussed. Risks include but are not limited to bleeding, infection, scarring, pain, and nerve damage. An opportunity to ask questions prior to the procedure was permitted and all questions were answered. Patient was prepped and draped in usual sterile fashion: area cleansed with alcohol. Anesthesia: the lesion was anesthetized in a standard fashion Anesthetic: 1% lidocaine w/ epinephrine 1-100,000 buffered w/ 8.4% NaHCO3 Instrument used: DermaBlade Hemostasis achieved with: electrodesiccation Outcome: patient tolerated procedure well Outcome comment: The specimen was placed in a prelabeled formalin container to be sent for pathology Post-procedure details: sterile dressing applied and wound care instructions given Post-procedure details comment: Emphasized need to contact clinic for any signs of infection, uncontrollable bleeding, or complications. Dressing type: bandage Additional details: Photo taken Amount of lidocaine used: 1.0 cc [email or web address] Type of biopsy: tangential Informed consent: discussed and consent obtained Informed consent comment: The risks and benefits of the biopsy were discussed. Risks include but are not limited to bleeding, infection, scarring, pain, and nerve damage. An opportunity to ask questions prior to the procedure was permitted and all questions were answered. Patient was prepped and draped in usual sterile fashion: area cleansed with alcohol. Anesthesia: the lesion was anesthetized in a standard fashion Anesthetic: 1% lidocaine w/ epinephrine 1-100,000 buffered w/ 8.4% NaHCO3 Instrument used: DermaBlade Hemostasis achieved with: electrodesiccation Outcome: patient tolerated procedure well Outcome comment: The specimen was placed in a prelabeled formalin container to be sent for pathology Post-procedure details: sterile dressing applied and wound care instructions given Post-procedure details comment: Emphasized need to contact clinic for any signs of infection, uncontrollable bleeding, or complications. Dressing type: bandage Additional details: Photo taken Amount of lidocaine used: 2.0 cc [employer] GLUCOSE, BLOOD (POC)on 04-29 Glucose [Mass/Vol] 98 mg/dL 74 - 99 mg/dL [facility] Comment on above: Location:[facility], [address] [place] [address] , [place], [place], [address] The Accu-Chek Inform II glucose meter has not been approved for testing on patients receiving intensive medical intervention or therapy and results from this point of care glucose test should not be used for patient management decisions in these cases. Inaccurate results may also occur from other interfering factors, such as N-acetylcysteine (blood concentrations of greater than 5mg/dL), galactose, extremes of hematocrit (<10 or >65), or high doses of ascorbic acid (vitamin C) greater than 3mg/dL. Consider alternate testing mechanisms (e.g. core lab, blood gas instrument) in the above situations. [facility] PET/CT SKULL-THIGH SUBQon 04-29-2024 FL PET/CT SKULL-THIGH SUBQ * * *Final Report* * * DATE OF EXAM: Apr 29 2024 3:28PM NRN [id number] - FL PET/CT SKULL-THIGH SUBQ / PROCEDURE REASON: multiple diagnoses * * * * Physician Interpretation * * * * RESULT: EXAMINATION: BODY FDG PET-CT CLINICAL HISTORY: MGUS. DLBCL s/p R-CHOP x 4 and radiation therapy (2008), prostrate cancer s/p radiation therapy (2019). EXAM CATEGORY: Subsequent treatment strategy. TECHNIQUE: Radiopharmaceutical was administered intravenously followed by PET imaging from the eyes to thighs. Free breathing, low dose CT of the same body region was acquired without IV contrast for attenuation correction and anatomic localization. Unenhanced imaging is limited for the evaluation of some pathology and the acquired CT was not designed to produce diagnostic CT scan quality. Physiologic/non-patholo gic uptake in some body regions could confound or obscure some pathology. * CT Dose-Length Product (DLP): 280 mGy*cm * CT Dose Reduction Employed: Yes * Blood glucose: 98 mg/dL * Injected activity: 14.0 mCi * Uptake Time: 45 minutes * Radiopharmaceutical: M68-Dtlyfytwanegtrhuqt (FDG) COMPARISON: No previous FDG PET/CT available CORRELATION: 05/15/[address] RESULT: REFERENCES: FDG uptake is used as a surrogate marker for glucose metabolism. All reported standardized uptake values represent maximum SUV (SUVmax) per body weight, unless otherwise specified. SUV reference values, as follows: * Blood Pool (Descending Aorta): SUVmax 2.9 * Background Liver: SUVmax 3.6; SUVmean 2.6 Localizer Images: No additional findings. HEAD AND NECK: Head: No radiotracer avid lesion or mass effect in the imaged intracranial compartment. Aerodigestive Tract: No radiotracer avid lesion. Lymph Nodes: No radiotracer avid lymphadenopathy. Neck Soft Tissues: Left cheek approximately 1.0 cm uptake with max SUV 2.8, 7:29, with mild underlying skin thickening. Diffuse bilateral thyroid uptake, max SUV 6.0. CHEST: Lungs and Pleura: Similar morphologic appearance of the pulmonary parenchyma compared to prior chest CT, given the differences in technique, no definite focal abnormal uptake. No pleural effusion. Lymph Nodes: No radiotracer avid lymphadenopathy. Mediastinum: Left hilar/AP window uptake, max SUV 2.9, approximately 0.7 cm short axis, 7:92. Cardiovascular: Left upper chest pacemaker/AICD. Blood pool activity. No pericardial effusion. Normal heart size. Chest Wall: No radiotracer avid soft tissue lesion. ABDOMEN AND PELVIS: Hepatobiliary: No radiotracer avid lesion. No measurable mass. Spleen: No radiotracer avid lesion. No splenomegaly. Calcified granulomata. Pancreas: No radiotracer avid lesion. Adrenals: No radiotracer avid nodule. Urinary Tract: Physiologic radiotracer excretion in the renal collecting systems and urinary bladder. No hydronephrosis. GI Tract: No radiotracer avid lesion. No bowel dilation. Peritoneum: No radiotracer avid lesion. No ascites. Lymph Nodes: No radiotracer avid lymphadenopathy. Vasculature: Blood pool activity. Vascular calcifications without an abdominal aortic aneurysm. Pelvic Organs: No radiotracer avid lesion. MUSCULOSKELETAL: Bones: No radiotracer avid lesion. Lucent appearance of the osseous structures may be secondary to demineralization and/or small lytic lesions. Soft Tissues: Fat-containing inguinal hernia, approximately 4.0 cm, no abnormal uptake.. IMPRESSION: HEAD/NECK: * Left cheek slight skin thickening and uptake. Recommend correlation with clinical exam findings. * Diffuse thyroid uptake, often secondary to thyroiditis. Serologic evaluation, as indicated. CHEST: * AP window/left hilar mildly avid 0.7 cm lymph node is favored to be reactive, lymphomatous involvement less likely, not entirely excluded. No prior study available for comparison. ABDOMEN/PELVIS: * No metabolically active disease or splenomegaly. MUSCULOSKELETAL: * No metabolically active disease. Deauville score: X/4 (AP window/left hilar) - score 1 : no uptake - score 2 : uptake <= mediastinum - score 3 : uptake > mediastinum, but <= liver - score 4 : uptake moderately higher than liver - score 5 : uptake markedly higher than liver and/or new lesions - score X : new areas of uptake unlikely to be related to lymphoma Transcribe Date/Time: May 01 2024 1:17P Dictated by: FRANCESCO MCCARTHY MD This examination was interpreted and the report reviewed and electronically signed by: FRANCESCO MCCARTHY MD on May 01 2024 8:49PM EST Thank you for allowing us to participate in the care of your patient. Should there be any questions regarding this interpretation, please call [phone]. If you are unable to reach us at the number above, please feel free to contact [facility] at [phone]. [id number] Normal [facility] Urology Office/Clinic Noteon 04-22-2024 Urology Office/Clinic Note Urology Office/Clinic Note Chief Complaint hx of prostate cancer HPI Staff 1 year f/u w/ PSA. Previous dx: hx prostate cancer (EBRT 06/2019), BPH with urinary obstruction, microhematuria and weak stream. *No urologic meds S/p Cysto 03/31/23. Neg CT AP wo con 04/02/23 [facility]. PSA 01/26/23 - 0.3 03/03/24 - 0.[address] Draper 04/19/24. Dysuria: denies Incomplete bladder emptying: denies Hematuria: denies Frequency: denies Urgency: denies Nocturia: 0-1x Wearing pads/ Depends: denies Urge incontinence: denies Stress incontinence: denies Incontinence without Sensory Awareness: denies Abdominal pain: denies Flank pain: denies Sexual complaints: denies History of Present Illness Tests reviewed: reviewed UA, PSA, operative report, CT scan, ZAMZAM I have reviewed the previous health record information and history for this patient from Dr. Draper and Dr. Mckeon. I have reviewed and verified the staff HPI to be accurate for this encounter. Review of Systems PHQ Score Initial Depression Screen Score: 0 SCORE ROS - Provider Constitutional: denies weight loss, denies hot flashes. Eyes: denies eye problems. Gastrointestinal: denies nausea, denies vomiting. Cardiovascular: denies chest pain or angina. Integumentary: no dryness Musculoskeletal: denies musculoskeletal symptoms. ENMT: denies otolaryngeal symptoms. Respiratory: no shortness of breath. Heme/Lymph: denies easy bleeding tendency, denies easy bruising tendency. Psychiatric: no confusion, no anxiety. Genitourinary: See HPI. Physical Exam Vitals & Measurements T: 37 ?C(Temporal Artery) HR: 59(Peripheral) RR: 16 BP: 102/52 HT: 66 in HT: 168 cm WT: 101.4 kg WT: 223.08 lb BMI: 35.93 General Appearance: alert, no distress, well nourished, well developed male. Assessment/Plan 1. History of prostate cancer (Z85.46: Personal history of malignant neoplasm of prostate) [place] 7 (4+3) S/p EBRT 06/2019. PSA 09/23/21 - 0.47 01/26/23 - 0.3 03/03/24 - 0.33 PSA remains stable. Shares he has not seen oncology in 2 yrs. Advised pt there is no indication for this given stability. -PSA in 1 year 2. 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 Moderate bladder trabeculations. Not taking any BPH meds. Feels he empties. Denies pain/burning with urination. No bother with urination at this time. -Cont sx monitoring 3. Asymptomatic microscopic hematuria (R31.21: Asymptomatic microscopic hematuria) Neg cytology 03/09/23. S/p Cysto 03/31/23 - No bladder tumors or stones. CT AP wo con 04/02/23 [facility] - No renal stones or hydro. ZAMZAM 03/03/24 [facility] - No stones or masses. Intermittent. UA today trace-intact blood, neg on prior UA. Denies gross hematuria. -Cont routine UAs and sx monitoring. Pt knows to notify the office if he were to experience gross hematuria or clots. Follow-up With When Contact Information MIKE VENTURA, Oni Sewell, [facility] [address] , [place] [address]- [phone] Additional Instructions: 1 yr w/ PSA Patient Education Prostate Cancer Screening I, Nettie Wolff, personally scribed for Dr. Mckeon on 04/22/2024 10:36:14. . Documentation recorded by the scribe, Nettie Wolff, accurately reflects the services(s) I performed and decisions made by me. Authenticated by Dr. Mckeon on 04/22/2024 10:37:41. Problem List/Past Medical History Ongoing Asymptomatic microscopic hematuria B12 deficiency BPH with urinary obstruction Cardiac [...] hernia Historical No qualifying data Procedure/Surgical History Cystoscopy (03/31/2023), Cardiac pacemaker (2019), Transrectal biopsy of prostate using ultrasound (US) guidance (03/10/2019), Cystourethroscopy (03/12/2010), Lymphadenectomy of sentinel lymph node (08/17/2006). Medications albuterol 0.083% Inh Kasie 3 mL, See Instructions aspirin 81 mg Oral EC Tab, 81 mg= 1 tab(s), Oral, Daily budesonide 0.5 mg/2 mL Inh Susp, 0.5 mg= 2 mL, NEB, BID, 11 refills calcium-vitamin D Electric scooter, See Instructions, Not taking: doesn't have this yet furosemide 40 mg Tab, 40 mg= 1 tab(s), Oral, Daily gabapentin 300 mg Cap, 300 (more content not included)... Normal [facility] [place] Comment on above: Result Comment: Elec tronically Signed By: Oni MCKEON MD\.br\Date and Time Signed: 04/22/24 10:37 EDT\.br\Electronically Co-Signed By: Nettie Wolff.br\Date and Time Co-Signed: 04/22/24 10:36 EDT CBC W Auto Differential pane l (Bld)on 04-20-2024 Anisocytosis Ql (Bld) Present [facility] Basophils (Bld) [#/Vol] 0.00 10*3/uL [facility] Basophils/100 WBC (Bld) 0.0 % [facility] Differential cell count method Nom (Bld) Manual [facility] Eosinophils (Bld) [#/Vol] 0.00 10*3/uL [facility] Eosinophils/100 WBC (Bld) 0.0 % [facility] Erythrocyte distribution width (RBC) [Ratio] 15.2 % High 11.5 - 15.0 % [facility] Hematocrit (Bld) [Volume fraction] 37.6 % Low 39.0 - 51.0 % [facility] Hemoglobin (Bld) [Mass/Vol] 12.3 g/dL Low 13.0 - 17.0 g/dL [facility] Interpretation and review of laboratory results Abnormal [facility] Lymphocytes (Bld) [#/Vol] 0.75 10*3/uL Low [facility] Lymphocytes/100 WBC (Bld) 17.0 % [facility] MCH (RBC) [Entitic mass] 34.2 pg High 26.0 - 34.0 pg [facility] MCHC (RBC) [Mass/Vol] 32.7 g/dL 30.5 - 36.0 g/dL [facility] MCV (RBC) [Entitic vol] 104.4 fL High 80.0 - 100.0 fL [facility] Story % 1.0 % [facility] Monocytes (Bld) [#/Vol] 1.73 10*3/uL High [facility] Monocytes/100 WBC (Bld) 39.0 % [facility] Neutrophils (Bld) [#/Vol] 1.91 10*3/uL [facility] Neutrophils/100 WBC (Bld) 43.0 % [facility] Nucleated RBC (Bld) [#/Vol] [facility] Nucleated RBC/100 WBC (Bld) [Ratio] 0.0 % /100 WBC [facility] Ovalocytes LM Ql (Bld) Few [facility] Platelet mean volume (Bld) [Entitic vol] 10.0 fL 9.0 - 12.7 fL [facility] Platelets (Bld) [#/Vol] 136 10*3/uL Low [facility] Platelets Estimate (Bld) [#/Vol] Adequate [facility] Polychromasia LM Ql (Bld) Slight [facility] RBC (Bld) [#/Vol] 3.60 10*6/uL Low 4.20 - 6.00 m/uL [facility] Red Cell Morph Reviewed: see result s of individual morphologies [facility] WBC (Bld) [#/Vol] 4.44 10*3/uL [facility] WBC Left Shift Ql (Bld) Present [facility] ANC=1.55 The followi ng results were reported as preliminary values due to instrument flagging. Interpret with caution. Final results may vary.Results requested and read back by: [email or web address] @[id number] ' GAY This is an appended report. These results have been appended to a previously verified report. [facility] Basic metabolic 2000 panelon 04-19-2024 Anion gap [Moles/Vol] 15 mmol/L 8 - 15 mmol/L [facility] Calcium [Mass/Vol] 9.2 mg/dL 8.5 - 10.2 mg/dL [facility] Comment on above: Corrected result: Pr eviously reported as 9.6 mg/dL on 04/19/2024 at 2:41 PM EDT. Chloride [Moles/Vol] 105 mmol/L 98 - 107 mmol/L [facility] CO2 [Moles/Vol] 25 mmol/L 22 - 30 mmol/L [facility] Comment on above: Corrected result: Pr eviously reported as 27 mmol/L on 04/19/2024 at 2:41 PM EDT. Creatinine [Mass/Vol] 1.37 mg/dL High 0.73 - 1.22 mg/dL [facility] Comment on above: Corrected result: Pr eviously reported as 1.36 mg/dL on 04/19/2024 at 2:41 PM EDT. GFR/1.73 sq M.predicted among non-blacks MDRD (S/P/Bld) [Vol rate/Area] 53 mL/min/{1.73_m2} Low - PINF [facility] Comment on above: Estimated Glomerular Filtration Rate (eGFR) is calculated using the 2020 CKD-EPI creatinine equation. This equation utilizes serum creatinine, sex, and age as parameters. The creatinine assay has traceable calibration to isotope dilution-mass spectrometry. Refer to KDIGO guidelines for clinical interpretation. In patients with unstable renal function, e.g. those with acute kidney injury, the eGFR may not accurately reflect actual GFR. Corrected result: Previously reported as 54 mL/min/1.73m on 04/19/2024 at 2:41 PM EDT. Glucose [Mass/Vol] 120 mg/dL High 74 - 99 mg/dL [facility] Comment on above: The [place] Diab[employer] Association (ADA) provides guidance for cutoff values [...] Standards of Medical Care in Diabetes 2016, [place] Diabetes Association. Diabetes Care. 2016.39(Suppl 1). Corrected result: Previously reported as 126 mg/dL on 04/19/2024 at 2:41 PM EDT. Interpretation and review of laboratory results Abnormal [facility] Potassium [Moles/Vol] 4.4 mmol/L 3.7 - 5.1 mmol/L [facility] Sodium [Moles/Vol] 145 mmol/L High 136 - 144 mmol/L [facility] Urea nitrogen [Mass/Vol] 20 mg/dL 9 - 24 mg/dL [facility] Comment on above: Corrected result: Pr eviously reported as 21 mg/dL on 04/19/2024 at 2:41 PM EDT. [facility] Anion gap [Moles/Vol] 15 mmol/L Normal 8-15 [facility] Comment on above: Order Comment: Speci men Type: BLOOD SPECIMENOrdering Facility: [facility] Address: [address] [place] [address] Performed By: #### 2 4321-2 ####[facility] LABCLIA [id number] [facility] [id number] [id number] [place] Calcium [Mass/Vol] 9.2 mg/dL Normal 8.5-10.2 [facility] Comment on above: Order Comment: Speci men Type: BLOOD SPECIMENOrdering Facility: [facility] Address: [address] [place] [address] Result Comment: Enmanuel ected result: Previously reported as 9.6 mg/dL on 04/19/2024 at 2:41 PM EDT. Performed By: #### 2 4321-2 ####[facility] LABCLIA [id number] [place] [address] [place] Chloride [Moles/Vol] 105 mmol/L Normal 98-107 [facility] Comment on above: Order Comment: Speci men Type: BLOOD SPECIMENOrdering Facility: [facility] Address: [address] [place] [address] Performed By: #### 2 4321-2 ####[facility] LABCLIA [id number] [place] [address] [place] CO2 [Moles/Vol] 25 mmol/L Normal 22-30 [facility] Comment on above: Order Comment: Speci men Type: BLOOD SPECIMENOrdering Facility: [facility] Address: [address] [place] [address] Result Comment: Enmanuel ected result: Previously reported as 27 mmol/L on 04/19/2024 at 2:41 PM EDT. Performed By: #### 2 4321-2 ####[facility] LABCLIA [id number] [place] [address] [place] Creatinine [Mass/Vol] 1.37 mg/dL High 0.73-1.22 [facility] Comment on above: Order Comment: Speci men Type: BLOOD SPECIMENOrdering Facility: [facility] Address: [address] [place] [address] Result Comment: Enmanuel ected result: Previously reported as 1.36 mg/dL on 04/19/2024 at 2:41 PM EDT. Performed By: #### 2 4321-2 ####[facility] LABCLIA [id number] [place] [address] [place] Creatinine and Glomerular filtration rate.predicted panel (S/P/Bld) 53 mL/min/1.73m??? Low >=60 [facility] Comment on above: Order Comment: Speci men Type: BLOOD SPECIMENOrdering Facility: [facility] Address: [address] [place] [address] Result Comment: Ary mated Glomerular Filtration Rate (eGFR) is calculated using the 2020 CKD-EPI creatinine equation. This equation utilizes serum creatinine, sex, and age as parameters. The creatinine assay has traceable calibration to isotope dilution-mass spectrometry. Refer to KDIGO guidelines for clinical interpretation. In patients with unstable renal function, e.g. those with acute kidney injury, the eGFR may not accurately reflect actual GFR. Corrected result: Previously reported as 54 mL/min/1.73m??? on 04/19/2024 at 2:41 PM EDT. Performed By: #### 2 4321-2 ####[facility] LABCLIA [id number] [place] [address] [place] Glucose [Mass/Vol] 120 mg/dL High 74-99 [facility] Comment on above: Order Comment: Liliya hadley Type: BLOOD SPECIMENOrdering Facility: [facility] Address: [address] [place] [address] Result Comment: The [place] Diabetes Association (ADA) provides guidance for cutoff [...] Standards of Medical Care in Diabetes 2016, [place] Diabetes Association. Diabetes Care. 2016.39(Suppl 1). Corrected result: Previously reported as 126 mg/dL on 04/19/2024 at 2:41 PM EDT. Performed By: #### 2 4321-2 ####[facility] LABCLIA [id number] [place] [address] [place] Potassium [Moles/Vol] 4.4 mmol/L Normal 3.7-5.1 [facility] Comment on above: Order Comment: Speci men Type: BLOOD SPECIMENOrdering Facility: [facility] Address: [address] [place] [address] Performed By: #### 2 4321-2 ####[facility] LABCLIA [id number] [place] [address] [place] Sodium [Moles/Vol] 145 mmol/L High 136-144 [facility] Comment on above: Order Comment: Speci men Type: BLOOD SPECIMENOrdering Facility: [facility] Address: [address] [place] [address] Performed By: #### 2 4321-2 ####[facility] LABCLIA [id number] [place] [address] [place] Urea nitrogen [Mass/Vol] 20 mg/dL Normal 9-24 [facility] Comment on above: Order Comment: Speci men Type: BLOOD SPECIMENOrdering Facility: [facility] Address: [address] [place] [address] Result Comment: Enmanuel ected result: Previously reported as 21 mg/dL on 04/19/2024 at 2:41 PM EDT. Performed By: #### 2 4321-2 ####[facility] LABCLIA [id number] [place] [address] [place] CBC W Auto Differential pane l (Bld)on 04-19-2024 Anisocytosis Ql (Bld) Present Normal [facility] Comment on above: Order Comment: Speci men Type: BLOOD SPECIMENOrdering Facility: [facility] Address: [address] [place] [address] Performed By: #### 5 7021-8 ####[facility] LABCLIA [id number] [place] [id number] LABCLIA [id number] [place] [address] [place] Basophils (Bld) [#/Vol] 0.00 10*3/uL Normal <0.11 [facility] Comment on above: Order Comment: Speci men Type: BLOOD SPECIMENOrdering Facility: [facility] Address: [address] [place] [address] Performed By: #### 5 7021-8 ####[facility] LABCLIA [id number] [address] LABCLIA [id number] [place] [address] [place] Basophils/100 WBC (Bld) 0.0 % Normal [facility] Comment on above: Order Comment: Speci men Type: BLOOD SPECIMENOrdering Facility: [facility] Address: [address] [place] [address] Performed By: #### 5 7021-8 ####[facility] LABCLIA [id number] [address] LABCLIA [id number] [place] [address] [place] Differential cell count method Nom (Bld) Manual Normal [facility] Comment on above: Order Comment: Speci men Type: BLOOD SPECIMENOrdering Facility: [facility] Address: [address] [place] [address] Performed By: #### 5 7021-8 ####[facility] LABCLIA [id number] [address] LABCLIA [id number] [place] [address] [place] Eosinophils (Bld) [#/Vol] 0.00 10*3/uL Normal <0.46 [facility] Comment on above: Order Comment: Speci men Type: BLOOD SPECIMENOrdering Facility: [facility] Address: [address] [place] [address] Performed By: #### 5 7021-8 ####[facility] LABCLIA [id number] [address] LABCLIA [id number] [place] [address] [place] Eosinophils/100 WBC (Bld) 0.0 % Normal [facility] Comment on above: Order Comment: Speci men Type: BLOOD SPECIMENOrdering Facility: [facility] Address: [address] [place] [address] Performed By: #### 5 7021-8 ####[facility] LABCLIA [id number] [address] LABCLIA [id number] [place] [address] [place] Erythrocyte distribution width (RBC) [Ratio] 15.2 % High 11.5-15.0 [facility] Comment on above: Order Comment: Speci men Type: BLOOD SPECIMENOrdering Facility: [facility] Address: [address] [place] [address] Performed By: #### 5 7021-8 ####[facility] LABCLIA [id number] [address] LABCLIA [id number] [place] [address] [place] Hematocrit (Bld) [Volume fraction] 37.6 % Low 39.0-51.0 [facility] Comment on above: Order Comment: Speci men Type: BLOOD SPECIMENOrdering Facility: [facility] Address: [address] [place] [address] Performed By: #### 5 7021-8 ####[facility] LABCLIA [id number] [address] LABCLIA [id number] [place] [address] [place] Hemoglobin (Bld) [Mass/Vol] 12.3 g/dL Low 13.0-17.0 [facility] Comment on above: Order Comment: Speci men Type: BLOOD SPECIMENOrdering Facility: [facility] Address: [address] [place] [address] Performed By: #### 5 7021-8 ####[facility] LABCLIA [id number] [address] LABCLIA [id number] [place] [address] [place] Lymphocytes (Bld) [#/Vol] 0.75 10*3/uL Low 1.00-4.00 [facility] Comment on above: Order Comment: Speci men Type: BLOOD SPECIMENOrdering Facility: [facility] Address: [address] [place] [address] Performed By: #### 5 7021-8 ####[facility] LABCLIA [id number] [address] LABCLIA [id number] [place] [address] [place] Lymphocytes/100 WBC (Bld) 17.0 % Normal [facility] Comment on above: Order Comment: Speci men Type: BLOOD SPECIMENOrdering Facility: [facility] Address: [address] [place] [address] Performed By: #### 5 7021-8 ####[facility] LABCLIA [id number] [address] LABCLIA [id number] [place] [address] [place] MCH (RBC) [Entitic mass] 34.2 pg High 26.0-34.0 [facility] Comment on above: Order Comment: Speci men Type: BLOOD SPECIMENOrdering Facility: [facility] Address: [address] [place] [address] Performed By: #### 5 7021-8 ####[facility] LABCLIA [id number] [address] LABCLIA [id number] [place] [address] [place] MCHC (RBC) [Mass/Vol] 32.7 g/dL Normal 30.5-36.0 [facility] Comment on above: Order Comment: Speci men Type: BLOOD SPECIMENOrdering Facility: [facility] Address: [address] [place] [address] Performed By: #### 5 7021-8 ####[facility] LABCLIA [id number] [address] LABCLIA [id number] [place] [address] [place] MCV (RBC) [Entitic vol] 104.4 fL High 80.0-100.0 [facility] Comment on above: Order Comment: Speci men Type: BLOOD SPECIMENOrdering Facility: [facility] Address: [address] [place] [address] Performed By: #### 5 7021-8 ####[facility] LABCLIA [id number] [address] LABCLIA [id number] [place] [address] [place] Metamyelocytes/100 WBC (Bld) 1.0 % Normal [facility] Comment on above: Order Comment: Speci men Type: BLOOD SPECIMENOrdering Facility: [facility] Address: [address] [place] [address] Performed By: #### 5 7021-8 ####[facility] LABCLIA [id number] [address] LABCLIA [id number] [place] [address] [place] Monocytes (Bld) [#/Vol] 1.73 10*3/uL High <0.87 [facility] Comment on above: Order Comment: Speci men Type: BLOOD SPECIMENOrdering Facility: [facility] Address: [address] [place] [address] Performed By: #### 5 7021-8 ####[facility] LABCLIA [id number] [place] [id number] LABCLIA [id number] [place] [address] [place] Monocytes/100 WBC (Bld) 39.0 % Normal [facility] Comment on above: Order Comment: Speci men Type: BLOOD SPECIMENOrdering Facility: [facility] Address: [address] [place] [address] Performed By: #### 5 7021-8 ####[facility] LABCLIA [id number] [address] LABCLIA [id number] [place] [address] [place] Neutrophils (Bld) [#/Vol] 1.91 10*3/uL Normal 1.45-7.50 [facility] Comment on above: Order Comment: Speci men Type: BLOOD SPECIMENOrdering Facility: [facility] Address: [address] [place] [address] Performed By: #### 5 7021-8 ####[facility] LABCLIA [id number] [address] LABCLIA [id number] [place] [address] [place] Neutrophils/100 WBC (Bld) 43.0 % Normal [facility] Comment on above: Order Comment: Speci men Type: BLOOD SPECIMENOrdering Facility: [facility] Address: [address] [place] [address] Performed By: #### 5 7021-8 ####[facility] LABCLIA [id number] [address] LABCLIA [id number] [place] [address] [place] Nucleated RBC (Bld) [#/Vol] 10*3/uL Normal <0.01 [facility] Comment on above: Order Comment: Speci men Type: BLOOD SPECIMENOrdering Facility: [facility] Address: [address] [place] [address] Performed By: #### 5 7021-8 ####[facility] LABCLIA [id number] [address] LABCLIA [id number] [place] [address] [place] Nucleated RBC/100 WBC (Bld) [Ratio] 0.0 /100 WBC Normal [facility] Comment on above: Order Comment: Speci men Type: BLOOD SPECIMENOrdering Facility: [facility] Address: [address] [place] [address] Performed By: #### 5 7021-8 ####[facility] LABCLIA [id number] [address] LABCLIA [id number] [place] [address] [place] Ovalocytes LM Ql (Bld) Few Normal [facility] Comment on above: Order Comment: Speci men Type: BLOOD SPECIMENOrdering Facility: [facility] Address: [address] [place] [address] Performed By: #### 5 7021-8 ####[facility] LABCLIA [id number] [address] LABCLIA [id number] [place] [address] [place] Platelet mean volume (Bld) [Entitic vol] 10.0 fL Normal 9.0-12.7 [facility] Comment on above: Order Comment: Speci men Type: BLOOD SPECIMENOrdering Facility: [facility] Address: [address] [place] [address] Performed By: #### 5 7021-8 ####[facility] LABCLIA [id number] [place] [id number] LABCLIA [id number] [place] [address] [place] Platelets (Bld) [#/Vol] 136 10*3/uL Low 150-400 [facility] Comment on above: Order Comment: Speci men Type: BLOOD SPECIMENOrdering Facility: [facility] Address: [address] [place] [address] Performed By: #### 5 7021-8 ####[facility] LABCLIA [id number] [address] LABCLIA [id number] [place] [address] [place] Platelets Estimate (Bld) [#/Vol] Adequate Normal [facility] Comment on above: Order Comment: Speci men Type: BLOOD SPECIMENOrdering Facility: [facility] Address: [address] [place] [address] Performed By: #### 5 7021-8 ####[facility] LABCLIA [id number] [address] LABCLIA [id number] [place] [address] [place] Polychromasia LM Ql (Bld) Slight Normal [facility] Comment on above: Order Comment: Speci men Type: BLOOD SPECIMENOrdering Facility: [facility] Address: [address] [place] [address] Performed By: #### 5 7021-8 ####[facility] LABCLIA [id number] [address] LABCLIA [id number] [place] [address] [place] RBC (Bld) [#/Vol] 3.60 10*6/uL Low 4.20-6.00 [facility] Comment on above: Order Comment: Speci men Type: BLOOD SPECIMENOrdering Facility: [facility] Address: [address] [place] [address] Performed By: #### 5 7021-8 ####[facility] LABCLIA [id number] [place] [id number] LABCLIA [id number] [place] [address] [place] RED CELL MORPH Reviewed: see result s of individual morphologies Normal [facility] Comment on above: Order Comment: Speci men Type: BLOOD SPECIMENOrdering Facility: [facility] Address: [address] [place] [address] Performed By: #### 5 7021-8 ####[facility] LABCLIA [id number] [address] LABCLIA [id number] [place] [address] [place] WBC (Bld) [#/Vol] 4.44 10*3/uL Normal 3.70-11.00 [facility] Comment on above: Order Comment: Speci men Type: BLOOD SPECIMENOrdering Facility: [facility] Address: [address] [place] [address] Performed By: #### 5 7021-8 ####[facility] LABCLIA [id number] [place] [id number] LABCLIA [id number] [place] [address] [place] WBC Left Shift Ql (Bld) Present Normal [facility] Comment on above: Order Comment: Speci men Type: BLOOD SPECIMENOrdering Facility: [facility] Address: [address] [place] [address] Performed By: #### 5 7021-8 ####[facility] LABCLIA [id number] [place] [id number] LABCLIA [id number] [address] [place] [address] [place] CNOVSPon 04-19-2024 CNOVSP Visit (SP) Office ([facility]) CHIKI JUAREZ ([id number]) 1945 M Date Time Provider Department 04/19/24 2:30 PM TYLER DRAPER During your visit today, we recorded the following information about you: Temperature Pulse Respiration Blood pressure 96.8 degrees 85/minute 20/minute 120/66 Weight Height 98.9 kg 1.727 m Tyler Draper MD 04/20/2024 9:45 AM Signed PATIENT NAME: Chiki Juarez DATE: 04/19/2024 PRIMARY CARE PHYSICIAN: Dr. Pito Patterson OTHER PHYSICIANS: Dr. Mayra Berg (Pulmonary [facility]) Portions of this encounter note have been copied from my note from 07/30/2023 and has been updated where appropriate, and reflect my current medical decision making from today. CC: This is a 78 year old male with a history of MGUS, seen for scheduled follow-up (prior patient of Dr. Herrera). INTERIM HISTORY: Since the patient's last visit here he followed up with his shot polisher at [facility] for 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 For evaluation of chronic leg swelling he underwent bilateral lower extremity Doppler scans on 02/01/2024 which revealed no evidence of DVT, but non-vascularized masses in both inguinal areas (suspected lymph nodes). With supportive measures his leg swelling has improved slightly. He denies any pain in the area or evidence of recent infection. His only other complaint today is a nonhealing ulcer over his left cheek area. He believes he may have cut the area while shaving but it has not healed over the past several months. He has not been evaluated by dermatology. Otherwise no significant clinical changes. No recent fevers, night sweats or weight loss. MEDICATIONS: albuterol (PROVENTIL) 2.5 mg /3 mL [...] Spironolactone PAST MEDICAL HISTORY: PAST MEDICAL HISTORY No date: Acute maxillary sinusitis No date: Cancer (HCC) Comment: Lymphoma No date: Chronic bronchitis with emphysema No date: COPD (chronic obstructive pulmonary disease) ([facility]) No date: COVID No date: Cystic fibrosis gene carrier No date: Dysarthria following nontraumatic intracerebral hemorrhage No date: Hypothyroidism No date: Hypoxemia No date: Multiple myeloma (HCC) No date: Pulmonary edema No date: Stroke ([facility]) No date: 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 HEENT: Negative for frequent or significant headaches, No changes in hearing or vision, no nose bleeds or other nasal problems RESPIRATORY: Negative for cough, wheezing or shortness of breath. CARDIOVASCULAR: Negative for chest pain, leg swelling or palpitati (more content not included)... Normal [facility] 04-19-2024 [facility] Telephone ([facility]) CHIKI JUAREZ ([id number]) 1945 Date Time Provider Department 04/19/24 TYLER DRAPER During your visit today, we recorded the following information about you: Mechelle Allred 04/19/2024 3:08 PM Signed Please ref patient to [facility]. Dx Skin Lesion blaise facial area. Their office to call the patient to schedule/ Rhona, Please fax records Julius, Please follow up on this appt. Jennie Ye 04/20/2024 9:34 AM Signed Rhona: Information ready for you. Jennie Flores Su L 04/20/2024 10:41 AM Signed Records faxed to [facility]. Alhajilourdes FloresSu Aurelia 04/26/2024 10:35 AM Signed Patient is scheduled with MARY Simmons on 05/03/24 @ 11:00. Allergies As of Date: 04/19/2024 Noted Allergy Reaction SPIRONOLACTONE 09/18/2021 14 - Other: See Comments Comments: Leg cramps, Hyperkalemia Date Reviewed: 04/19/2024 Reviewed by: Jenna Vidal, MA - Fully Assessed Reason for Visit: Future Appointment [256] Prescriptions as of 04/26/2024 - TEZSPIRE 210 mg/1.91 mL (110 mg/mL) injection - albuterol (PROVENTIL) 2.5 mg /3 mL (0.083 %) nebulizer solution albuterol sulfate 2.5 mg/3 mL (0.083 %) solution for nebulization INHALE 1 VIAL VIA NEBULIZER EVERY 4 HOURS - potassium chloride SR (MICRO-K) 10 mEq [...] mg-codeine 30 mg tablet - budesonide (PULMICORT) 1 mg/2 mL nebulizer solution 2 mL. - ipratropium-albuterol (DUONEB) 0.5 mg-3 mg(2.5 mg [...] before breakfast. 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 Consistent with IgG lambda monoclonal gammopathy. Normal [facility] Comment on above: Order Comment: Speci men Type: BLOOD SPECIMENOrdering Facility: [facility] Address: [address] [place] [address] Performed By: #### I FESC ####[facility] LABCLIA [id number] [place] [address] [place] MPA RESULT M protein is present. Abnormal No M p rotein is identified. [facility] Comment on above: Order Comment: Speci men Type: BLOOD SPECIMENOrdering Facility: [facility] Address: [address] [place] [address] Performed By: #### I FESC ####[facility] LABCLIA [id number] [place] [address] [place] STAFF REVIEW (MPA) Reviewed by Alison Langford MD Normal [facility] Comment on above: Order Comment: Speci men Type: BLOOD SPECIMENOrdering Facility: [facility] Address: [address] [place] [address] Performed By: #### I FES ####[facility] LABIA [id number] [place] [address] [place] IMMUNOGLOBULINS,IGG,IGA,IGMo n 04-19-2024 IgA [Mass/Vol] 124 mg/dL Normal 70-400 [facility] Comment on above: Order Comment: Speci men Type: BLOOD SPECIMENOrdering Facility: [facility] Address: [address] [place] [address] Performed By: #### S ERIMM ####[facility] [id number] [place] [address] [place] IgG [Mass/Vol] 1147 mg/dL Normal 700-1600 [facility] Comment on above: Order Comment: Speci men Type: BLOOD SPECIMENOrdering Facility: [facility] Address: [address] [place] [address] Performed By: #### S ERIMM ####[facility] [id number] [place] [address] [place] IgM [Mass/Vol] 75 mg/dL Normal 40-230 [facility] Comment on above: Order Comment: Speci men Type: BLOOD SPECIMENOrdering Facility: [facility] Address: [address] [place] [address] Performed By: #### S ERIMM ####[facility] LABIA [id number] [place] [address] [place] KAPPA/ARDON,FREE,SERon 2023 Immunoglobulin light chains.kappa.free (S) [Mass/Vol] 34.6 mg/L High 3.3-19.4 [facility] Comment on above: Order Comment: Speci men Type: BLOOD SPECIMEN Ordering Facility: [facility] Address: [address] [place] [address] Result Comment: Rare ly, increased serum free light chains levels may not be detected or accurately quantified due to prozone phenomenon or in high viscosity samples using this immunoturbidimetric assay. Correlation with other laboratory results and clinical findings is recommended. The [place] Free Light Chain was performed using the Binding Site Optilite immunoturbidimetric method. Result obtained with different assay methods or kits cannot be used interchangeably. Performed By: #### S ERIMM #### [facility] CLIA [id number] [address] [place] [address] [place] Immunoglobulin light chains.kappa/Immuno globulin light chains.lambda (S) [Mass ratio] 1.90 High 0.26-1.65 [facility] Comment on above: Order Comment: Speci jomar Type: BLOOD SPECIMEN Ordering Facility: [facility] Address: [address] [place] [address] Performed By: #### S ERIMM #### [facility] CLIA [id number] [address] [place] [address] [place] Immunoglobulin light chains.lambda.free [Mass/Vol] 18.2 mg/L Normal 5.7-26.3 [facility] Comment on above: Order Comment: Speci jomar Type: BLOOD SPECIMEN Ordering Facility: [facility] Address: [address] [place] [address] Result Comment: Rare ly, increased serum free [...] cannot be used interchangeably. Performed By: #### S ERIMM #### [facility] CLIA [id number] [address] [place] [address] [place] PROTEIN ELECTROPHORESIS SERU M WITH CARSON (P)on 04-19-2024 Albumin [Mass/Vol] 3.82 g/dL Normal 3.43-5.41 [facility] Comment on above: Order Comment: Speci men Type: BLOOD SPECIMEN [facility] Facility: [facility] Address: [address] [place] [address] Performed By: #### S ERIMM #### [facility] CLIA [id number] [address] [place] [address] [place] Alpha 1 globulin Elph [Mass/Vol] 0.33 g/dL Normal 0.18-0.43 [facility] Comment on above: Order Comment: Speci men Type: BLOOD SPECIMEN [facility]ing Facility: [facility] Address: [address] [place] [address] Performed By: #### S ERIMM #### [facility] CLIA [id number] [address] [place] [address] [place] Alpha 2 globulin Elph [Mass/Vol] 0.69 g/dL Normal 0.42-0.98 [facility] Comment on above: Order Comment: Speci men Type: BLOOD SPECIMEN Ordering Facility: [facility] Address: [address] [place] [address] Performed By: #### S ERIMM #### [facility] CLIA [id number] [address] [place] [address] [place] Beta globulin Elph [Mass/Vol] 0.80 g/dL Normal 0.61-1.17 [facility] Comment on above: Order Comment: Speci men Type: BLOOD SPECIMEN [facility]ing Facility: [facility] Address: [address] [place] [address] Performed By: #### S ERIMM #### [facility] CLIA [id number] [address] [place] [address] [place] COMMENT (SERUM PROT ELECTRO) Monoclonal Protein analysis (immunofixation) is not indicated. Normal [facility] Comment on above: Order Comment: Speci men Type: BLOOD SPECIMEN [facility] Address: [address] [place] [address] Performed By: #### S ERIMM #### [facility] CLIA [id number] [address] [place] [address] [place] Gamma globulin Elph [Mass/Vol] 0.95 g/dL Normal 0.53-1.51 [facility] Comment on above: Order Comment: Speci men Type: BLOOD SPECIMEN [facility] Address: [address] [place] [address] Performed By: #### S ERIMM #### [facility] CLIA [id number] [address] [place] [address] [place] INTERPRETATION COMMENT FOR PROTEIN ELECTROPHORESIS The atypical region is relatively poorly defined and may represent an unusual presentation of polyclonal immunoglobulins, but cannot rule out the presence of a low level M protein. If clinically indicated, monoclonal protein analysis and serum free light chain analysis are suggested to evaluate further for monoclonal gammopathy. Normal [facility] Comment on above: Order Comment: Speci men Type: BLOOD SPECIMEN [facility]: [facility] Address: [address] [place] [address] Performed By: #### S ERIMM #### [facility] CLIA [id number] [address] [place] [address] [place] M-PROTEIN LOCATION Normal [facility] Comment on above: Order Comment: Speci men Type: BLOOD SPECIMEN [facility] Facility[facility] Address: [address] [place] [address] Result Comment: Not Applicable. Performed By: #### S ERIMM #### [facility] CLIA [id number] [address] [place] [address] [place] Protein Fractions [Interp] An atypical region of restricted mobility is identified on protein electrophoresis. Abnormal No definitive M protein is identified on protein electrophoresis. [facility] Comment on above: Order Comment: Speci men Type: BLOOD SPECIMEN [facility] Address: [address] [place] [address] Performed By: #### S ERIMM #### [facility] CLIA [id number] [address] [place] [address] [place] Protein.monoclonal Elph [Mass/Vol] 0.00 g/dL Normal <=0.00 [facility] Comment on above: Order Comment: Speci men Type: BLOOD SPECIMEN [facility] Address: [address] [place] [address] Performed By: #### S ERIMM #### [facility] CLIA [id number] [address] [place] [address] [place] SPE STAFF REVIEW Reviewed by Alison Langford MD [facility] Comment on above: Order Comment: Speci men Type: BLOOD SPECIMEN [facility] Facility[facility] Address: [address] [place] [address] Performed By: #### S ERIMM #### [facility] CLIA [id number] [address] [place] [address] [place] Prot SerPl-mCncon 04-19-2024 Protein [Mass/Vol] 6.6 g/dL Normal 6.3-8.0 [facility] Comment on above: Order Comment: Speci men Type: BLOOD SPECIMENOrdering Facility: [facility] Address: [address] [place] [address] Performed By: #### 2 [id number] ####[facility] LABCLIA [id number] [place] [address] [place] Family Medicine Office/Clini c Noteon 03-06-2024 Family Medicine Office/Clinic Note Family Medicine Office/Clinic Note Chief Complaint Medicare Wellness Visit Subsequent History of Present Illness Covid-19, MERS, Ebola Screen *Contact With Person With Highly Contagious Disease Like Ebola/MERS/COVID-19 AND Have One or More of the Symptoms Below : No *Travel to a Country With Wide-Spread Ebola/MERS/COVID-19 in the Past 21 Days AND Have One or More of the Symptoms Below : No Patient Reported Covid-19 Testing : No *Verify Droplet, Contact Precautions for Ebola (Reference for CDC) : N/A *Verify Airborne, Droplet Precautions for MERS/COVID-19 : N/A Nisha Ellis LPN - 02/15/2024 9:23 EDT Medicare/Medicaid Summary Systolic Blood Pressure : 118 mmHg Diastolic Blood Pressure : 58 mmHg (LOW) Peripheral Pulse Rate : 75 bpm Respiratory Rate : 20 br/min SpO2 : 91 % Numeric Rating Pain Score : 6 Nisha Ellis LPN - 02/15/2024 10:13 EDT Height/Length Measured : 161 cm(Converted to: 5 ft 3 in, 63.39 in) Weight Measured : 102 kg(Converted to: 224 lb 14 Ounces, 224.872 lb) Body Mass Index Measured : 39.35 kg/m2 Height in Inches : 63 in Weight in Pounds : 224.4 lb Nisha Ellis LPN - 02/15/2024 9:32 EDT Chief Complaint : Medicare Wellness Visit Subsequent Patient Counseled : Nutrition, Physical activity, Elevated BMI Blood Pressure Location : Right arm Blood Pressure Position : Sitting O2 Sat Resting/Exertion Alpha : Resting Pain Present : No actual or suspected pain Nisha Ellis LPN 02/15/2024 9:23 EDT Hearing and Vision Screening FT Vision Screen Comments : Wears corrective lenses, sees [facility] for eye exams. FT Whisper Test Comments : No deficits noted. 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 Patient Wishes to Receive Further Information on Advance Directives : No Organ Donation Consent : Yes Advance Directive : Yes Nisha Ellis LPN Hector 02/15/2024 9:32 EDT Procedures / Surgeries FT - Procedure History (As Of: 02/15/2024 10:32:11 EDT) Procedure Dt/Tm: 03/12/2010 ; Provider: Young Manriquez MD, Romeo Valles; Anesthesia Minutes: 0 ; Procedure Name: Cystourethroscopy ; Procedure Minutes: 0 ; Last Reviewed Dt/Tm: 02/15/2024 09:49:59 EDT Procedure Dt/Tm: 08/17/2006 ; Anesthesia Minutes: 0 ; Procedure Name: Lymphadenectomy of sentinel lymph node ; Procedure Minutes: 0 ; Last Reviewed Dt/Tm: 02/15/2024 09:49:59 EDT Procedure Dt/Tm: 03/10/2019 ; Provider: Romeo Vidal Jr., MD; Anesthesia Minutes: 0 ; Procedure Name: Transrectal biopsy of prostate using ultrasound (US) guidance ; Procedure Minutes: 0 ; Last Reviewed Dt/Tm: 02/15/2024 09:49:59 EDT Procedure Dt/Tm: 2019 ; Anesthesia Minutes: 0 ; Procedure Name: Cardiac pacemaker ; Procedure Minutes: 0 ; Last Reviewed Dt/Tm: 02/15/2024 09:49:59 EDT Family History Family History (As Of: 02/15/2024 10:32:11 EDT) Father: Relation: Father ; Gender: Male ; Nomenclature: Stroke ; Value: Positive Medicare/Medicaid Social History FT Social History (As Of: 02/15/2024 10:32:11 EDT) Alcohol: Low Risk Current, Beer, 1-2 times per year, 1 drinks/episode average. 1.00 drinks/episode maximum. Alcohol use interferes with work or home: No. Drinks more than intended: No. Others hurt by drinking: No. Ready to change: No. Household alcohol concerns: No. Comments: 02/15/2024 9:50 - Nisha Ellis LPN: Patient states he drinks 1 beer once or twice a year. (Last Updated: 02/15/2024 09:50:26 EDT by Nisha Ellis LPN) Tobacco: Denies Tobacco Use Former smoker, quit more than 30 days ago Tobacco Use:. Never Smokeless Tobacco Use:. Cigarettes, 1 per day. 20 year(s). Total pack years: 1. Started age 20.0 Years. Stopped age 42 Years. Household tobacco concerns: No. Comments: 02/15/2024 9:51 - Nisha Ellis LPN: Patient states he smoked cigarettes, 1 PPD from about 22 years old until about 42 years old. (Last Updated: 02/15/2024 09:51:10 EDT by Nisha Ellis LPN) Substance Abuse: Denies Substance Abuse (Last Updated: 02/15/2024 09:50:30 EDT by Nisha Ellis LPN ) Health Risk Assessment FT Primary Pain Location : Back Numeric Rating Pain Scale : 6 Numeric Rating Pain Score : 6 Overall mood for past four weeks : Pretty well General health rating : Fair Someone avail. to help if needed? : Yes, quite a bit Phys. & emotional health limit social act? : Slightly Nisha Ellis LPN - 02/15/2024 10:13 EDT Misc Health Risks Grid Sexual problems : Always Trouble eating well : Never Teeth or denture problems : Never Problems using the telephone : Never Nisha Ellis LPN - 02/15/2024 10:13 EDT Confident you control health problems : Somewhat confident Difficulties driving your car? : No Seatbelts : I always fasten my seat belt Nisha Ellis LPN - 02/15/2024 10:13 EDT HRA little interest or pleasure? : No HRA down, depressed, or hopeless? : No Hazards in your house? : No Fall Risk Past Year : No Worrie (more content not included)... Normal [facility] Comment on above: Result Comment: Elec tronically Signed By: Pito Patterson MD\.br\Date and Time Signed: 03/06/24 13:48 EDT\.br\Electronically Co-Signed By: Nisha Ellis LPN\.br\Date and Time Co-Signed: 02/15/24 10:48 EDT Reminderson 03-03-2024 Reminders Reminders From: Solange Broussard To: EU - Recalls Mike; Sent: 06/09/2023 16:03:24 EDT Show up: 01/16/2024 16:03:00 EDT Subject: renal US Due Date/Time: 02/01/2024 16:03:00 EDT Reminder/Recall Patient needs renal US prior to February 2024 appt f/u scheduled 03/14/24 LM on pt's VM notifying him that order for ZAMZAM has been faxed to [facility]. They should be reaching out to get him scheduled. If he does not hear from them w/in 1wk he is to call our office. F/U schedule dw/PRW 03/14/24 to review results. ZAMZAM scheduled 03/03/24. F/U schedule dw/PRW 03/14/24 to review results. Completed Normal [facility] Ambulatory Visit Summaryon 0 02-15-2024 Ambulatory Visit Summary Ambulatory Visit Summary CHIKI JUAERZ :1945 Visit Date:02/15/2024 Ambulatory Visit Instructions Your [...] Patterson MD This Is Your Medications List acetaminophen-codeine (Tylenol [...] mg Cap) ipratropium nasal (ipratropium Nasal 0.06% Baggs) levothyroxine (levothyroxine 100 mcg (0.1 mg) Tab) [...] Follow-Up Appointments Thursday 11:15 AM EDT With: Oni MCKEON MD Where: [facility] Invalid Interpretation Code [address] [place] [address]- \.br\ Thursday 8:00 AM EDT \.br\ With:\.br\ Where: [facility] Ambulatory Visit Summary Ambulatory Visit Summary CHIKI JUAREZ :1945 Visit Date:02/15/2024 Ambulatory Visit Instructions Your Diagnosis Annual visit for general adult medical examination without abnormal findings COPD with asthma Chronic hypoxic respiratory failure JUANA (obstructive sleep apnea) Chronic diastolic heart failure Pulmonary hypertension Chronic kidney disease, stage 3a Severe obesity Hypothyroid Former smoker Screening for hepatitis C declined Your Care Team Attending Physician - Marlys Carcamo Primary Care Physician - Pito Patterson MD This Is Your Medications List Misc Prescription (Electric scooter) Misc Prescription (Lissa Macias, 5 years.) Misc Prescription (Nebulizer accessory set) Oxygen (Oxygen - for Home) albuterol (albuterol 0.083% Inh Kasei 3 mL) aspirin (aspirin 81 mg Oral EC Tab) budesonide (budesonide 0.5 mg/2 mL Inh Susp) calcium-vitamin D cyanocobalamin (Vitamin B12) furosemide (furosemide 40 mg Tab) gabapentin (gabapentin 300 mg Cap) ipratropium nasal (ipratropium Nasal 0.06% Baggs) levothyroxine (levothyroxine 100 mcg (0.1 mg) Tab) [...] node (08/17/2006). Discharge Vitals Heart Rate (Peripheral) 75 Respiratory Rate 20 Blood Pressure 118/58 Height 161 cm Height 63 in Weight 102 kg Weight 224.4 lb BMI 39.35 What to do next Scheduled Follow-Up Appointments Thursday 11:15 AM EDT With: MIKE VENTURA, Oni Sewell Where: [facility] [place] [id number] \.br\ Medications\.br\ What How Much When Why Instructions\.br\ Unchanged albuterol (albuterol 0.083% Inh Kasie 3 mL) See instructions INHALE 1 VIAL VIA NEBULIZER EVERY 4 HOURS \.br\ Unchanged aspirin (aspirin 81 mg Oral EC Tab) 1 Tablets By Mouth Every day\.br\ Unchanged budesonide (budesonide 0.5 mg/ 2 mL Inh Susp) 2 Milliliter Nebulized inhalation (aerosol) 2 times a day\.br\ Unchanged calcium-vitamin D\.br\ Unchanged cyanocobalamin (Vitamin B12)\.br\ Unchanged furosemide (furosemide 40 mg Tab) 1 Tablets By Mouth Every day\.br\ Unchanged gabapentin (gabapentin 300 mg Cap) 1 Capsules By Mouth Every day\.br\ Unchanged ipratropium nasal (ipratropium Nasal 0.06% Baggs) 2 Sprays Nasal Inhalation 2 times a day Duration: [address] 2 SPRAYS IN EACH NOSTRIL TWO TIMES DAILY. \.br\ Unchanged levothyroxine (levothyroxine 100 mcg (0.1 mg) Tab) See instructions TAKE 1 TABLET BY MOUTH EVERY DAY \.br\ Unchanged metoprolol (metoprolol 25 mg ER Tab) 1 Tablets By Mouth Every day\.br\ Unchanged Misc Prescription (Electric scooter) See instructions Hearing loss Pt would like an electric scooter \.br\ Unchanged Misc Prescription (Handicap Placard, 5 years.) See instructions COPD with asthma Pulmonary hypertension Macrocytic anemia Cardiac pacemaker in situ Chronic hypoxic respiratory failure Hypothyroid Decreased ambulation status BMI 35.0-35.9,adult Class 1 obesity due to excess calories in adult Former smoker Handicap Placard, 5 years. 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 \.br\ Unchanged potassium chloride (potassium chloride 10 mEq ER Tab) 1 Tablets By Mouth Every day\.br\ Unchanged salmeterol (Serevent Diskus 50 mcg inhalation powder) 1 Each Inhalation Every 12 hours\.br\ Unchanged sodium chloride (Hyper-Flaco 3.5% inhalation solution) See instructions per neulizer BID, skip one dose with increased swelling in feet- per patient \.br\ Unchanged tezepelumab (Tezspire Pre-filled Pen 210 mg/ 1.91 mL subcutaneous solution) 210 Milligram Subcutaneous Every 4 weeks patient not sure of dose \.br\ Unchanged tiotropium (tiotropium 18 mcg Inh Cap) See instructions INHALE 2 INHALATIONS FROM THE CONTENTS OF 1 CAPSULE BY MOUTH VIA INHALATION DEVICE ONCE DAILY \.br\ Allergies\.br\ No Known Allergies\.br\ Problems\.br\ Ongoing - Any problem that you are currently receiving treatment for.\.br\ B12 deficiency\.br\ BPH with urinary obstruction\.br\ Cardiac pacemaker in situ\.br\ Chronic diastolic heart failure\.br\ Chronic hypoxic respiratory failure\.br\ Chronic kidney disease, stage 3a\.br\ Compression fracture of thoracic vertebra with routine healing, unspecified thoracic vertebral level, subsequent encounter\.br\ COPD with asthma\.br\ Decreased ambulation status\.br\ Essential tremor\.br\ Former smoker\.br\ Hearing loss\.br\ History of B-cell lymphoma\.br\ History of prostate cancer\.br\ Hx of cerebrovascular disorder\.br\ Hypothyroid\.br\ Macrocytic anemia\.br\ MGUS (monoclonal gammopathy of unknown significance)\.br \ Neuropathy, arm\.br\ Obesity due to excess calories\.br\ JUANA (obstructive sleep apnea)\.br\ Prostate nodule\.br\ Pulmonary hypertension\.br\ Severe obesity\.br\ Ventral hernia\.br\ Patient Survey\.br\ You may receive a survey via text or e-mail asking about your office visit. Please share your experience with us by completing your survey. We appreciate your feedback and thank you for choosing us for your care.\.br\ Education Materials\.br\ Preventive Care 65 Years and Older, Male\.br\ Preventive care refers to lifestyle choices and visits with your health care provider that can promote health and wellness. Preventive care visits are also called wellness exams.\.br\ What can I expect for my preventive care visit?\.br\ Counseling\.br\ During your preventive care visit, your health care provider may ask about your:\.br\ ? \.br\ Medical history, including:\.br\ ? \.br\ Past medical problems.\.br\ ? \.br\ Family medical history.\.br\ ? \.br\ History of falls.\.br\ ? \.br\ Current health, including:\.br\ ? \.br\ Emotional well-being.\.br\ ? \.br\ Home life and relationship well-being.\.br\ ? \.br\ Sexual activity.\.br\ ? \.br\ Memory and ability to understand (cognition).\.br\ ? \.br\ Lifestyle, including:\.br\ ? \.br\ Alcohol, nicotine or tobacco, and drug use.\.br\ ? \.br\ Access to firearms.\.br\ ? \.br\ Diet, exercise, and sleep habits.\.br\ ? \.br\ Work and work environment.\.br\ ? \.br\ Sunscreen use.\.br\ ? \.br\ Safety issues such as seatbelt and bike helmet use.\.br\ Physical exam\.br\ Your health care provider will check your:\.br\ ? \.br\ Height and weight. These may be used to calculate your BMI (body mass index). BMI is a measurement that tells if you are at a healthy weight.\.br\ ? \.br\ Waist circumference. This measures the distance around your waistline. This measurement also tells if you are at a healthy weight and may help predict your risk of certain diseases, such as type 2 diabetes and high blood pressure.\.br\ ? \.br\ Heart rate and blood pressure.\.br\ ? \.br\ Body temperature.\.br\ ? \.br\ Skin for abnormal spots.\.br\ What immunizations do I need?\.br\ \.br\ Vaccines are usually given at various ages, according to a schedule. Your health care provider will recommend vaccines for you based on your age, medical history, and lifestyle or other factors, such as travel or where you work.\.br\ What tests do I need?\.br\ Screening\.br\ Your health care provider may recommend screening tests for certain conditions. This may include:\.br\ ? \.br\ Lipid and cholesterol levels.\.br\ ? \.br\ Diabetes screening. This is done by checking your blood sugar (glucose) after you have not eaten for a while (fasting).\.br\ ? \.br\ Hepatitis C test.\.br\ ? \.br\ Hepatitis B test.\.br\ ? \.br\ HIV (human immunodeficiency virus) test.\.br\ ? \.br\ STI (sexually transmitted infection) testing, if you are at risk.\.br\ ? \.br\ Lung cancer screening.\.br\ ? \.br\ Colorectal cancer screening.\.br\ ? \.br\ Prostate cancer screening.\.br\ ? \.br\ Abdominal aortic aneurysm (AAA) screening. You may need this if you are a current or former smoker.\.br\ Talk with your health care provider about your test results, treatment options, and if necessary, the need for more tests.\.br\ Follow these instructions at home:\.br\ Eating and drinking\.br\ \.br\ ? \.br\ Eat a diet that includes fresh fruits and vegetables, whole grains, lean protein, and low-fat dairy products. Limit your intake of foods with high amounts of sugar, saturated fats, and salt.\.br\ ? \.br\ Take vitamin and mineral supplements as recommended by your health care provider.\.br\ ? \.br\ Do not drink alcohol if your health care provider tells you not to drink.\.br\ ? \.br\ If you drink alcohol:\.br\ ? \.br\ Limit how much you have to 0?2 drinks a day.\.br\ ? \.br\ Know how much alcohol is in your drink. In the [place] one drink equals one 12 oz bottle of beer (355 mL), one 5 oz glass of wine (148 mL), or one 1? Castellanos [facility] Family Medicine Office/Clini c Noteon 02-15-2024 [...] refilled to [facility]. ( [facility]) [facility] [...] - Sees Cardiology. Ordered: Medicare Subsequent Visit G0439 3. Chronic hypoxic respiratory failure (J96.11: Chronic respiratory failure with hypoxia) - Per number 1. Ordered: Medicare Subsequent Visit G0439 4. Chronic kidney disease, stage 3a (N18.31: Chronic kidney disease, stage 3a) - Stable - Reviewed labs Ordered: Medicare Subsequent Visit G0439 5. BMI 36.0-36.9,adult (Z68.36: Body mass index [BMI] 36.0-36.9, adult) - BMI education added 6. Class 1 obesity due to excess calories in adult (E66.09: Other obesity due to excess calories) - Diet and exercise advised 7. Former smoker (Z87.891: Personal history of nicotine dependence) - Please continue to not smoke. Ordered: Medicare Subsequent Visit G0439 8. JUANA (obstructive sleep apnea) (G47.33: Obstructive [...] - Will try and get records from [facility] - Will work up base off [...] (2019), Transr (more content not included)... Normal [facility] Comment on above: Result Comment: Elec tronically Signed By: Navarro VENTURA, Pito Davidson\.br\Date and Time Signed: 02/15/24 12:59 EDT Physician Orderon 02-09-2024 Physician Order [id number] FF [facility] CNPShantel 02-02-2024 CNPN Telephone (HEMASA) CHIKI JUAREZ ([id number]) 1945 M Date Time Provider Department 02/02/24 VALERIE MAYES HEMASA During your visit today, we recorded the [...] Status:Closed by VALERIE MAYES on 02/02/24 Normal [facility] Basic metabolic 2000 panelon 01-21-2024 Anion gap [Moles/Vol] 7 mmol/L Low 8-15 [facility] Comment on above: Order Comment: Speci men Type: BLOOD SPECIMENOrdering Facility: [facility] Address: [address] [place] [address] Performed By: #### 2 4321-2 ####[facility] LABCLIA [id number] [place] [address] Calcium [Mass/Vol] 9.3 mg/dL Normal 8.5-10.2 [facility] Comment on above: Order Comment: Speci men Type: BLOOD SPECIMENOrdering Facility: [facility] Address: [address] [place] [address] Performed By: #### 2 4321-2 ####[facility] LABCLIA [id number] [place] [address] Chloride [Moles/Vol] 109 mmol/L High 98-107 [facility] Comment on above: Order Comment: Speci men Type: BLOOD SPECIMENOrdering Facility: [facility] Address: [address] [place] [address] Performed By: #### 2 4321-2 ####[facility] LABCLIA [id number] [place] [address] CO2 [Moles/Vol] 26 mmol/L Normal 22-30 [facility] Comment on above: Order Comment: Speci men Type: BLOOD SPECIMENOrdering Facility: [facility] Address: [address] [place] [address] Performed By: #### 2 4321-2 ####[facility] LABCLIA [id number] [place] [address] Creatinine [Mass/Vol] 1.31 mg/dL High 0.73-1.22 [facility] Comment on above: Order Comment: Speci men Type: BLOOD SPECIMENOrdering Facility: [facility] Address: [address] [place] [address] Performed By: #### 2 4321-2 ####[facility] LABCLIA [id number] [place] [address] Creatinine and Glomerular filtration rate.predicted panel (S/P/Bld) 56 mL/min/1.73m??? Low >=60 [facility] Comment on above: Order Comment: Speci men Type: BLOOD SPECIMENOrdering Facility: [facility] Address: [address] [place] [address] Result Comment: Ary mated Glomerular Filtration Rate [...] actual GFR. Performed By: #### 2 4321-2 ####[facility] LABCLIA [id number] [place] [address] Glucose [Mass/Vol] 121 mg/dL High 74-99 [facility] Comment on above: Order Comment: Speci men Type: BLOOD SPECIMENOrdering Facility: [facility] Address: [address] [place] [id number] Result Comment: The [place] Diabetes Association (ADA) provides guidance for cutoff [...] Standards of Medical Care in Diabetes 2016, [place] [employer]. Diabetes Care. 2016.39(Suppl 1). Performed By: #### 2 4321-2 ####[facility] LABCLIA [id number] [place] [address] Potassium [Moles/Vol] 4.1 mmol/L Normal 3.7-5.1 [facility] Comment on above: Order Comment: Josei men Type: BLOOD SPECIMENOrdering Facility: [facility] Address: [address] [place], [place] [address] Performed By: #### 2 4321-2 ####[facility] LABCLIA [id number] [place] [address] Sodium [Moles/Vol] 142 mmol/L Normal 136-144 [facility] Comment on above: Order Comment: Speci men Type: BLOOD SPECIMENOrdering Facility: [facility] Address: [address] [place] [address] Performed By: #### 2 4321-2 ####[facility] LABCLIA [id number] [place] [address] Urea nitrogen [Mass/Vol] 17 mg/dL Normal 9-24 [facility] Comment on above: Order Comment: Speci men Type: BLOOD SPECIMENOrdering Facility: [facility] Address: [address] [place] [address] Performed By: #### 2 4321-2 ####[facility] LABCLIA [id number] [place] [address] CBC W Auto Differential pane l (Bld)on 01-21-2024 Basophils (Bld) [#/Vol] 10*3/uL Normal <0.11 [facility] Comment on above: Order Comment: Speci men Type: BLOOD SPECIMENOrdering Facility: [facility] Address: [address] [place] [address] Performed By: #### 5 7021-8 ####[facility] LABCLIA [id number] [place] [address] Basophils/100 WBC (Bld) 0.3 % Normal [facility] Comment on above: Order Comment: Speci men Type: BLOOD SPECIMENOrdering Facility: [facility] Address: [address] [place] [address] Performed By: #### 5 7021-8 ####[facility] LABCLIA [id number] [place] [address] Differential cell count method Nom (Bld) Auto Normal [facility] Comment on above: Order Comment: Speci men Type: BLOOD SPECIMENOrdering Facility: [facility] Address: [address] [place] [address] Performed By: #### 5 7021-8 ####[facility] LABCLIA [id number] [place] [address] Eosinophils (Bld) [#/Vol] 10*3/uL Normal <0.46 [facility] Comment on above: Order Comment: Speci men Type: BLOOD SPECIMENOrdering Facility: [facility] Address: [address] [place] [address] Performed By: #### 5 7021-8 ####[facility] LABCLIA [id number] [place] [address] Eosinophils/100 WBC (Bld) 0.3 % Normal [facility] Comment on above: Order Comment: Speci men Type: BLOOD SPECIMENOrdering Facility: [facility] Address: [address] [place] [address] Performed By: #### 5 7021-8 ####[facility] LABCLIA [id number] [place] [address] Erythrocyte distribution width (RBC) [Ratio] 14.6 % Normal 11.5-15.0 [facility] Comment on above: Order Comment: Speci men Type: BLOOD SPECIMENOrdering Facility: [facility] Address: [address] [place] [address] Performed By: #### 5 7021-8 ####[facility] LABCLIA [id number] [place] [address] Hematocrit (Bld) [Volume fraction] 35.7 % Low 39.0-51.0 [facility] Comment on above: Order Comment: Speci men Type: BLOOD SPECIMENOrdering Facility: [facility] Address: [address] [place] [address] Performed By: #### 5 7021-8 ####[facility] LABCLIA [id number] [place] [address] Hemoglobin (Bld) [Mass/Vol] 11.4 g/dL Low 13.0-17.0 [facility] Comment on above: Order Comment: Speci men Type: BLOOD SPECIMENOrdering Facility: [facility] Address: [address] [place] [address] Performed By: #### 5 7021-8 ####[facility] LABCLIA [id number] [place] [address] Immature granulocytes (Bld) [#/Vol] 0.08 10*3/uL Normal <0.10 [facility] Comment on above: Order Comment: Speci men Type: BLOOD SPECIMENOrdering Facility: [facility] Address: [address] [place] [address] Performed By: #### 5 7021-8 ####[facility] LABCLIA [id number] [place] [address] Immature granulocytes/100 WBC (Bld) 2.2 % Normal [facility] Comment on above: Order Comment: Speci men Type: BLOOD SPECIMENOrdering Facility: [facility] Address: [address] [place] [address] Performed By: #### 5 7021-8 ####[facility] LABCLIA [id number] [place] [address] Lymphocytes (Bld) [#/Vol] 0.92 10*3/uL Low 1.00-4.00 [facility] Comment on above: Order Comment: Speci men Type: BLOOD SPECIMENOrdering Facility: [facility] Address: [address] [place] [address] Performed By: #### 5 7021-8 ####[facility] LABCLIA [id number] [place] [address] Lymphocytes/100 WBC (Bld) 25.2 % Normal [facility] Comment on above: Order Comment: Speci men Type: BLOOD SPECIMENOrdering Facility: [facility] Address: [address] [place] [address] Performed By: #### 5 7021-8 ####[facility] LABCLIA [id number] [place] [address] MCH (RBC) [Entitic mass] 33.8 pg Normal 26.0-34.0 [facility] Comment on above: Order Comment: Speci men Type: BLOOD SPECIMENOrdering Facility: [facility] Address: [address] [place] [address] Performed By: #### 5 7021-8 ####[facility] LABIA [id number] [place] [address] MCHC (RBC) [Mass/Vol] 31.9 g/dL Normal 30.5-36.0 [facility] Comment on above: Order Comment: Speci men Type: BLOOD SPECIMENOrdering Facility: [facility] Address: [address] [place] [address] Performed By: #### 5 7021-8 ####[facility] LABCLIA [id number] [place] [address] MCV (RBC) [Entitic vol] 105.9 fL High 80.0-100.0 [facility] Comment on above: Order Comment: Speci men Type: BLOOD SPECIMENOrdering Facility: [facility] Address: [address] [place] [address] Performed By: #### 5 7021-8 ####[facility] LABCLIA [id number] [place] [address] Monocytes (Bld) [#/Vol] 1.38 10*3/uL High <0.87 [facility] Comment on above: Order Comment: Speci men Type: BLOOD SPECIMENOrdering Facility: [facility] Address: [address] [place] [address] Performed By: #### 5 7021-8 ####[facility] LABCLIA [id number] [place] [address] Monocytes/100 WBC (Bld) 37.8 % Normal [facility] Comment on above: Order Comment: Speci men Type: BLOOD SPECIMENOrdering Facility: [facility] Address: [address] [place] [address] Performed By: #### 5 7021-8 ####[facility] LABCLIA [id number] [place] [address] Neutrophils (Bld) [#/Vol] 1.25 10*3/uL Low 1.45-7.50 [facility] Comment on above: Order Comment: Speci men Type: BLOOD SPECIMENOrdering Facility: [facility] Address: [address] [place] [address] Performed By: #### 5 7021-8 ####[facility] LABCLIA [id number] [place] [address] Neutrophils/100 WBC (Bld) 34.2 % Normal [facility] Comment on above: Order Comment: Speci men Type: BLOOD SPECIMENOrdering Facility: [facility] Address: [address] [place] [address] Performed By: #### 5 7021-8 ####[facility] LABCLIA [id number] [place] [address] Nucleated RBC (Bld) [#/Vol] 10*3/uL Normal <0.01 [facility] Comment on above: Order Comment: Speci men Type: BLOOD SPECIMENOrdering Facility: [facility] Address: [address] [place] [address] Performed By: #### 5 7021-8 ####[facility] LABCLIA [id number] [place] [address] Nucleated RBC/100 WBC (Bld) [Ratio] 0.0 /100 WBC Normal [facility] Comment on above: Order Comment: Speci men Type: BLOOD SPECIMENOrdering Facility: [facility] Address: [address] [place] [address] Performed By: #### 5 7021-8 ####[facility] LABCLIA [id number] [place] [address] Platelet mean volume (Bld) [Entitic vol] 9.6 fL Normal 9.0-12.7 [facility] Comment on above: Order Comment: Speci men Type: BLOOD SPECIMENOrdering Facility: [facility] Address: [address] [place] [address] Performed By: #### 5 7021-8 ####[facility] LABIA [id number] [place] [address] Platelets (Bld) [#/Vol] 151 10*3/uL Normal 150-400 [facility] Comment on above: Order Comment: Speci men Type: BLOOD SPECIMENOrdering Facility: [facility] Address: [address] [place] [address] Performed By: #### 5 7021-8 ####[facility] LABCLIA [id number] [place] [address] RBC (Bld) [#/Vol] 3.37 10*6/uL Low 4.20-6.00 [facility] Comment on above: Order Comment: Speci men Type: BLOOD SPECIMENOrdering Facility: [facility] Address: [address] [place] [address] Performed By: #### 5 7021-8 ####[facility] LABCLIA [id number] [place] [address] WBC (Bld) [#/Vol] 3.65 10*3/uL Low 3.70-11.00 [facility] Comment on above: Order Comment: Speci men Type: BLOOD SPECIMENOrdering Facility: [facility] Address: [address] [place] [address] Performed By: #### 5 7021-8 ####[facility] LABCLIA [id number] [place] [address] IMMUNOFIXATION SCREEN, SERUM on 01-21-2024 INTERPRETATION (MPA) Atypical restricted band is present in the lambda region. Consistent with lambda containing monoclonal gammopathy. IgD and IgE negative by immunofixation. Performed at [facility], [place], [place]. Normal [facility] Comment on above: Order Comment: Speci men Type: BLOOD SPECIMEN [facility] Address: [address] [place] [address] Performed By: #### S ERIMM #### [facility] CLIA [id number] [address] [place] [address] [place] [address] [place] MPA RESULT M protein is present. Abnormal No M p rotein is identified. [facility] Comment on above: Order Comment: Speci men Type: BLOOD SPECIMEN [facility] Address: [address] [place] [address] Performed By: #### S ERIMM #### [facility] CLIA [id number] [address] [place] [address] [place] STAFF REVIEW (MPA) Reviewed by Dr. Rowan Ibarra MD [facility] Comment on above: Order Comment: Speci men Type: BLOOD SPECIMEN [facility] Address: [address] [place] [address] Performed By: #### S ERIMM #### [facility] CLIA [id number] [address] [place] [address] [place] IMMUNOGLOBULINS,IGG,IGA,IGMo n 01-21-2024 IgA [Mass/Vol] 110 mg/dL Normal 70-400 [facility] Comment on above: Order Comment: Speci men Type: BLOOD SPECIMEN [facility] Address: [address] [place] [address] Performed By: #### S ERIMM #### [facility] CLIA [id number] [address] [place] [address] [place] IgG [Mass/Vol] 1011 mg/dL Normal 700-1600 [facility] Comment on above: Order Comment: Speci men Type: BLOOD SPECIMEN [facility] Address: [address] [place] [address] Performed By: #### S ERIMM #### [facility] IA [id number] [address] [place] [address] [place] IgM [Mass/Vol] 64 mg/dL Normal 40-230 [facility] Comment on above: Order Comment: Speci men Type: BLOOD SPECIMEN [facility] Address: [address] [place] [address] Performed By: #### S ERIMM #### [facility] CLIA [id number] [address] [place] [address] [place] KAPPA/ARDON,FREE,SERon 2023 Immunoglobulin light chains.kappa.free (S) [Mass/Vol] 30.8 mg/L High 3.3-19.4 [facility] Comment on above: Order Comment: Speci men Type: BLOOD SPECIMEN [facility] Address: [address] [place] [address] Result Comment: Rare ly, increased serum free light chains levels may not be detected or accurately quantified due to prozone phenomenon or in high viscosity samples using this immunoturbidimetric assay. Correlation with other laboratory results and clinical findings is recommended. The [place] Free Light Chain was performed using the Binding Site Optilite immunoturbidimetric method. Result obtained with different assay methods or kits cannot be used interchangeably. Performed By: #### S ERIMM #### [facility] CLIA [id number] [address] [place] [address] [place] Immunoglobulin light chains.kappa/Immuno globulin light chains.lambda (S) [Mass ratio] 1.77 High 0.26-1.65 [facility] Comment on above: Order Comment: Speci jomar Type: BLOOD SPECIMEN [facility] Address: [address] [place] [address] Performed By: #### S ERIMM #### [facility] CLIA [id number] [address] [place] [address] [place] Immunoglobulin light chains.lambda.free [Mass/Vol] 17.4 mg/L Normal 5.7-26.3 [facility] Comment on above: Order Comment: Speci jomar Type: BLOOD SPECIMEN [facility] Address: [address] [place] [address] Result Comment: Rare ly, increased serum free [...] cannot be used interchangeably. Performed By: #### S ERIMM #### [facility] CLIA [id number] [address] [place] [address] [place] PROTEIN ELECTROPHORESIS SERU M WITH CARSON (P)on 01-21-2024 Albumin [Mass/Vol] 3.53 g/dL Normal 3.43-5.41 [facility] Comment on above: Order Comment: Speci men Type: BLOOD SPECIMENOrdering Facility: [facility] Address: [address] [place] [address] Performed By: #### L [id number] ####[facility] LABIA [id number] [place] [address] [place] Alpha 1 globulin Elph [Mass/Vol] 0.36 g/dL Normal 0.18-0.43 [facility] Comment on above: Order Comment: Speci men Type: BLOOD SPECIMENOrdering Facility: [facility] Address: [address] [place] [address] Performed By: #### L [id number] ####[facility] [id number] [address] [place] Alpha 2 globulin Elph [Mass/Vol] 0.73 g/dL Normal 0.42-0.98 [facility] Comment on above: Order Comment: Speci men Type: BLOOD SPECIMENOrdering Facility: [facility] Address: [address] [place] [address] Performed By: #### L [id number] ####[facility] [id number] [place] [address] [place] Beta globulin Elph [Mass/Vol] 0.74 g/dL Normal 0.61-1.17 [facility] Comment on above: Order Comment: Speci men Type: BLOOD SPECIMENOrdering Facility: [facility] Address: [address] [place] [address] Performed By: #### L [id number] ####[facility] LABIA [id number] [place] [address] [place] COMMENT (SERUM PROT ELECTRO) Monoclonal Protein analysis (immunofixation) is not indicated. Normal [facility] Comment on above: Order Comment: Speci men Type: BLOOD SPECIMENOrdering Facility: [facility] Address: [address] [place] [address] Performed By: #### L [id number] ####[facility] LABCLIA [id number] [address] [address] [place] Gamma globulin Elph [Mass/Vol] 0.84 g/dL Normal 0.53-1.51 [facility] Comment on above: Order Comment: Speci men Type: BLOOD SPECIMENOrdering Facility: [facility] Address: [address] [place] [address] Performed By: #### L [id number] ####[facility] LABIA [id number] [place] [address] [place] INTERPRETATION COMMENT FOR PROTEIN ELECTROPHORESIS See separate immunofixation report for characterization of monoclonal gammopathy. Normal [facility] Comment on above: Order Comment: Speci men Type: BLOOD SPECIMENOrdering Facility: [facility] Address: [address] [place] [address] Performed By: #### L [id number] ####[facility] LABIA [id number] [address] [place] M-PROTEIN LOCATION Gamma Fraction 1 Normal [facility] Comment on above: Order Comment: Speci men Type: BLOOD SPECIMENOrdering Facility: [facility] Address: [address] [place] [address] Performed By: #### L [id number] ####[facility] LABCLIA [id number] [place] [id number] [place] Protein Fractions [Interp] An M protein is identified on protein electrophoresis. Abnormal No definitive M protein is identified on protein electrophoresis. [facility] Comment on above: Order Comment: Speci men Type: BLOOD SPECIMENOrdering Facility: [facility] Address: [address] [place], [place] [address] Performed By: #### L [id number] ####[facility] [id number] [place] [address] [place] Protein.monoclonal Elph [Mass/Vol] 0.10 g/dL High <=0.00 [facility] Comment on above: Order Comment: Speci men Type: BLOOD SPECIMENOrdering Facility: [facility] Address: [address] [place] [address] Performed By: #### L [id number] ####[facility] [id number] [place] [address] [place] SPE STAFF REVIEW Reviewed by Fran Boyd MD, Ph.D ([id number]) Normal [facility] Comment on above: Order Comment: Speci men Type: BLOOD SPECIMENOrdering Facility: [facility] Address: [address] [place] [address] Performed By: #### L [id number] ####[facility] [id number] [place] [address] [place] PSA SerPl-mCncon 01-21-2024 Prostate specific Ag [Mass/Vol] 0.23 ng/mL Normal <2.60 [facility] Comment on above: Order Comment: Speci men Type: BLOOD SPECIMENOrdering Facility: [facility] Address: [address] [place] [address] Result Comment: Tota l PSA test methodology used is the Electrochemiluminescence Immunoassay by [employer]. Total PSA values by differing methodologies cannot be interchanged. Performed By: #### 2 857-1 ####[facility] [id number] [place] [address] [place] Prot SerPl-mCncon 01-21-2024 Protein [Mass/Vol] 6.2 g/dL Low 6.3-8.0 [facility] Comment on above: Order Comment: Speci men Type: BLOOD SPECIMEN [facility] Address: [address] [place] [address] Performed By: #### S ERIMM #### [facility] CLIA [id number] [address] [place] [address] [place] Retail - Clinical Noteon Retail - Clinical Note [id number]#1.00T IFF Normal [facility] Consultation Noteon 01-12-20 Consultation Note [id number]#1.00T IFF Normal [facility] Consultation Noteon 01-06-20 Consultation Note [id number]#1.00TI FF Normal [facility] Retail - Clinical Noteon Retail - Clinical Note [id number]#1.00T IFF Normal [facility] Family Medicine Office/Clini c Noteon 12-01-2023 Family [...] is because of the pulmonary status. Patient's shot polisher has not written for any mobility devices. [...] believes that he qualifies or have his shot polisher help get this accomplished. We will see the patient after he sees his shot polisher at the end of January 2. Compression [...] Medical History (more content not included)... Normal [facility] Comment on above: Result Comment: Elec tronically Signed By: Navarro VENTURA, Pito Davidson\.br\Date and Time Signed: 12/01/23 14:50 EDT Family Medicine Office/Clini c Noteon 10-20-2023 Family Medicine Office/Clinic Note HPI Staff Chiki is a 78 year old male presenting for follow up after seeing shot polisher Had appt @ [facility] w/ shot polisher and had walking test w/ pulse ox [...] male who presents for recheck after seeing shot polisher. The patient consulted with his shot polisher at the [facility]. He is awaiting approval from his insurance [...] he manages to walk without difficulty. His automatic driller and reamer, Dr. Easton, has concluded that his symptoms are not indicative of cardiac issues but rather related to his respiratory system. Blood work was not conducted during his last visit to [place], and he has an appointment with Dr. [...] abstinence fro (more content not included)... Normal [facility] Comment on above: Result Comment: Elec tronically Signed By: Navarro VENTURA, Pito Davidson\.br\Date and Time Signed: 10/20/23 18:17 EST\.br\Electronically Co-Signed [...] mg Cap) ipratropium nasal (ipratropium Nasal 0.06% Baggs) metoprolol (metoprolol 25 mg ER Tab) potassium [...] PM EDT With: Pito Patterson MD [facility] [facility] Invalid Interpretation Code [address] [place] [address]- \.br\ Thursday 11:00 AM EDT \.br\ With:\.br\ Where: [facility] CBC w/ Auto Diffon 4 Basophils/100 WBC (Bld) 0.4 % Normal 0.0-2.0 [facility] Comment on above: Performed By: #### 1 [id number], 69384997, 8569269, 8149852 ####[address] [address] Basophils/Leukocyte s Auto (Bld) [Pure # fraction] 0.0 E9/L Normal 0.0-0.2 [facility] Comment on above: Performed By: #### 1 4371304, 51151554, 2098771, 6899975 ####[place] [address]557 Eosinophils (Bld) [#/Vol] 0.0 E9/L Normal 0.0-0.5 [facility] Comment on above: Performed By: #### 1 4460351, 95043367, 1611031, 1033235 ####[address] [address] Eosinophils/100 WBC (Bld) 0.3 % Normal 0.0-8.0 [facility] Comment on above: Performed By: #### 1 3540667, 06049594, 7000090, 2028454 ####[place] [address]557 Erythrocyte distribution width (RBC) [Ratio] 17.1 % High 10.9-14.2 [facility] Comment on above: Performed By: #### 1 8397249, 77148201, 8130272, 8354020 ####[address] [address] Hematocrit (Bld) [Volume fraction] 37.0 % Low 37.7-49.0 [facility] Comment on above: Performed By: #### 1 1498733, 10631456, 0138216, 9637739 ####[facility] [address] [place] [address] Hemoglobin (Bld) [Mass/Vol] 11.8 g/dL Low 13.5-17.5 [facility] Comment on above: Performed By: #### 1 0907914, 46391752, 3191910, 6933169 ####[address] [address] Lymphocytes (Bld) [#/Vol] 0.8 E9/L Low 1.0-4.0 [facility] Comment on above: Performed By: #### 1 8816147, 08561039, 5922937, 2479892 ####[address] [address] Lymphocytes/100 WBC (Bld) 14.1 % Normal 14.0-50.0 [facility] Comment on above: Performed By: #### 1 6048895, 67583990, 1572679, 0206356 ####[address] [address] MCH (RBC) [Entitic mass] 33.6 pg Normal 27.0-34.0 [facility] Comment on above: Performed By: #### 1 1028398, 57812241, 4997944, 3946932 ####[address] [address] MCHC (RBC) [Mass/Vol] 32.0 g/dL Normal 31.4-36.0 [facility] Comment on above: Performed By: #### 1 9226319, 28551128, 8278826, 2951483 ####[address] [address] MCV (RBC) [Entitic vol] 105.2 fL High 80.0-100.0 [facility] Comment on above: Performed By: #### 1 4877810, 05193459, 7339033, 8660593 ####[address] [address] Monocytes (Bld) [#/Vol] 1.9 E9/L High 0.2-1.0 [facility] Comment on above: Performed By: #### 1 3931760, 81056809, 9774402, 2686417 ####[facility] [address] [place] [address] Neutrophils (Bld) [#/Vol] 3.3 E9/L Normal 2.0-7.5 [facility] Comment on above: Performed By: #### 1 5889138, 56018506, 1448677, 5995536 ####[address] [address] Neutrophils/100 WBC (Bld) 54.2 % Normal 36.0-75.0 [facility] Comment on above: Performed By: #### 1 4504421, 10186442, 0424181, 0799303 ####[address] [address] Platelet mean volume (Bld) [Entitic vol] 9.5 fL Normal 6.4-10.8 [facility] Comment on above: Performed By: #### 1 0543843, 36515074, 6436202, 6832250 ####[address] [address] Platelets (Bld) [#/Vol] 131.0 E9/L Low 150.0-500.0 [facility] Comment on above: Performed By: #### 1 8809607, 60847978, 5257385, 5199405 ####[address] [address] RBC (Bld) [#/Vol] 3.5 E12/L Low 4.3-5.9 [facility] Comment on above: Performed By: #### 1 6787055, 53968581, 4906789, 3028670 ####[address] [address] WBC corrected for nucl RBC Auto (Bld) [#/Vol] 6.0 E9/L Normal 4.0-11.0 [facility] Comment on above: Performed By: #### 1 5416360, 45998596, 1757252, 6910048 ####[facility] [address] [place] [address] CHEMISTRYOrdered By: SYSTEM SYSTEM on 10-19-2023 Albumin [Mass/Vol] 3.8 g/dL Normal 3.3 - 5.0 gm/dL R emisol Chem Albumin/Globulin [Mass ratio] 1.7 {ratio} Normal [...] Bilirubin [Mass/Vol] 0.5 mg/dL Normal 0.0 - 1.1 mg/dL Remisol Chem Calcium [Mass/Vol] 9.3 mg/dL Normal 8.9 - 11.1 mg/dL Remisol Chem Chloride [Moles/Vol] 103 mmol/L Normal 101 - 111 mmol/L Remisol Chem CO2 [Moles/Vol] 26 mmol/L Normal 21 - 31 mmol/L Remis ol Chem Creatinine [Mass/Vol] 1.4 mg/dL High 0.5 - 1.3 mg/dL Remisol Chem eGFR 52 mL/min/1.73 m2 Low >=59mL/min /1.73 m2 Remisol Chem Globulin (S) [Mass/Vol] 2.3 g/dL Normal 1.4 - 4.0 gm/dL Remisol Chem Glucose [Mass/Vol] 136 mg/dL Normal 55 - 199 mg/dL Re misol Chem Potassium [Moles/Vol] 4.2 mmol/L Normal 3.5 - 5.3 mmol/L Remisol Chem Protein [Mass/Vol] 6.1 g/dL Normal 6.0 - 7.8 gm/dL R emisol Chem Sodium [Moles/Vol] 140 mmol/L Normal 135 - 145 mmol/L Remisol Chem TSH Qn 4.77 m[IU]/L Normal 0.34 - 5.60 mcIU/mL Remisol Chem Urea nitrogen [Mass/Vol] 35 mg/dL High 5 - 21 mg/dL Remisol Chem Urea nitrogen/Creatinine [Mass ratio] 25 mg/mg High 10 - 20 Remisol Chem CMPon 10-19-2023 Albumin [Mass/Vol] 3.8 g/dL Normal 3.3-5.0 [facility] Comment on above: Performed By: #### 1 3161118, 30262972, 9570267, 9431062 ####[facility] [address] [place] [address] Albumin/Globulin (S) [Mass conc ratio] 1.7 Normal 1.1-2.2 [facility] Comment on above: Performed By: #### 1 0074505, 74752904, 9428319, 4159342 ####[facility] [address] [place] [address] ALP [Catalytic activity/Vol] 67 Int._Unit/L Normal 21-98 [facility] Comment on above: Performed By: #### 1 8614631, 35791955, 9873451, 5404454 ####[facility] [address] [place] [address] ALT No additional P-5'-P [Catalytic activity/Vol] 11 Int._Unit/L Normal 6-46 [facility] Comment on above: Performed By: #### 1 8222838, 00733127, 9997220, 0769691 ####[facility] [address] [place] [address] Anion gap [Moles/Vol] 15 mmol/L Normal 6-16 [facility] Comment on above: Performed By: #### 1 4167213, 36724336, 9076762, 3170565 ####[facility] [address] [place] [address] AST [Catalytic activity/Vol] 13 Int._Unit/L Normal 5-43 [facility] Comment on above: Performed By: #### 1 6574329, 90559287, 0029497, 3744567 ####[facility] [address] [place] [address] Bilirubin [Mass/Vol] 0.5 mg/dL Normal 0.0-1.1 [facility] Comment on above: Performed By: #### 1 7772694, 74552932, 5474691, 3135069 ####[facility] [address] [place] [address] Calcium [Mass/Vol] 9.3 mg/dL Normal 8.9-11.1 [facility] Comment on above: Performed By: #### 1 1461972, 20926810, 8329262, 8051869 ####[facility] [address] [place] [address] Chloride [Moles/Vol] 103 mmol/L Normal 101-111 [facility] Comment on above: Performed By: #### 1 6519420, 63923310, 3525006, 8928299 ####[facility] [address] [place] [address] CO2 [Moles/Vol] 26 mmol/L Normal 21-31 [facility] Comment on above: Performed By: #### 1 7225718, 44504999, 5625099, 1111016 ####[facility] [address] [place] [address] Creatinine [Mass/Vol] 1.4 mg/dL High 0.5-1.3 [facility] Comment on above: Performed By: #### 1 1143926, 87213758, 7560156, 8937472 ####[facility] [address] [place] [address] Globulin (S) [Mass/Vol] 2.3 g/dL Normal 1.4-4.0 [facility] Comment on above: Performed By: #### 1 6347706, 86362486, 1322070, 7106194 ####[facility] [address] [place] [address] Glucose [Mass/Vol] 136 mg/dL Normal 55-199 [facility] Comment on above: Performed By: #### 1 9012464, 03643238, 1421953, 9996323 ####[facility] [address] [place] [address] Potassium [Moles/Vol] 4.2 mmol/L Normal 3.5-5.3 [facility] Comment on above: Performed By: #### 1 6734245, 69843457, 0516560, 1726016 ####[facility] [address] [place] [address] Protein [Mass/Vol] 6.1 g/dL Normal 6.0-7.8 [facility] Comment on above: Performed By: #### 1 8114970, 27941475, 0100161, 6208448 ####[address] [address] Sodium [Moles/Vol] 140 mmol/L Normal 135-145 [facility] Comment on above: Performed By: #### 1 9794221, 84511991, 8408944, 3573854 ####[facility] [address] [place] [address] Urea nitrogen [Mass/Vol] 35 mg/dL High 5-21 [facility] Comment on above: Performed By: #### 1 1049245, 89384241, 2202748, 1812138 ####[facility] [address] [place] [address] Urea nitrogen/Creatinine [Mass ratio] 25 No Units High 10-20 [facility] Comment on above: Performed By: #### 1 4585611, 88754101, 3883602, 2632436 ####[facility] [address] [place] [address] HEMATOLOGYOrdered By: SYSTEM SYSTEM on 10-19-2023 Basophils/100 WBC (Bld) 0.4 % Normal 0.0 - 2.0 % Remisol Heme Basophils/Leukocyte s Auto (Bld) [Pure # fraction] 0.0 [...] 3.5 E12/L Low 4.3 - 5.9 E12/L Re misol Heme WBC corrected for nucl RBC Auto (Bld) [#/Vol] 6.0 E9/L Normal 4.0 - 11.0 E9/L Remisol Heme Office Visiton 03-04-2024 Follow-up visit [id number] Tremaine Juarez 1945 M Date Provider Department Center 10/19/2023 DANIELLA CARDONA KRISTEN [facility] Family History Problem Relation Age of Onset Stroke Father Family Status - Relation Status Age at Father Level of Service:[address] [place] OFFICE/OUTPATIENT ESTABLISHED LOW MDM 20 MIN Normal [facility] Patient Educationon 10-19-19 Patient Education Nutrition [...] for Disease Control and Prevention: www.cdc.gov ? [place] Heart Association: www.heart.org ? National Heart, Lung, and Blood [place]: www.nhlbi.nih.gov Summary ? Body mass index (BMI) [...] provider. Document Revised: 04/25/2020 Document Reviewed: 03/02/2020 [employer] Patient Education ? 2022 [employer]Line. [facility] Patient Logson 10-19-2023 Patient Logs [id number]#1.00T IFF [facility] Pre-Visit Planningon 024 Pre-Visit Planning - From: Nandini Romero To: Pito Patterson MD; Sent: 10/16/2023 12:58:06 EST Subject: Pre-Visit Planning Due Date/Time: 10/16/2023 12:58:00 EST Caller Name: CHIKI JUAREZ; Caller Number: H , M Mo Dr. Patterson. During a pre-visit planning chart [...] feel free to contact me at extension [phone]. Thank you! Nandini Romero LPN From: Pito Patterson MD To: Nandini Romero; Sent: 10/19/2023 13:10:52 EST Subject: RE: Pre-Visit Planning Caller Name: CHIKI JUAREZ; Caller Number: Tyler , M -Chronic Kidney Disease Stage 3a (GFR 45-59) Normal 272 [facility] Pre-Visit Planning - From: Nandini Romero To: Pito Patterson MD; Sent: 10/16/2023 12:38:28 EST Subject: Pre-Visit Planning Due Date/Time: 10/16/2023 12:38:00 EST Caller Name: CHIKI JUAREZ; Caller Number: Tyler , M Mo Dr. Patterson. During a pre-visit planning chart [...] feel free to contact me at extension [phone]. Thank you! Nandini Romero LPN From: Pito Patterson MD To: Nandini Romero; Sent: 10/19/2023 13:10:24 EST Subject: RE: Pre-Visit Planning Caller Name: CHIKI JUAREZ; Caller Number: H , M I saw this after. Please remind me again at his next visit. I diagnosed with his Chronic Respiratory Failure. Normal [address] [facility] TSH With T4fr Reflexon 10-18 TSH Qn 4.77 m[IU]/L Normal 0.34-5.60 [facility] Comment on above: Performed By: #### 1 8285652, 40922663, 3360316, 9786159 ####[facility] [address] [place] [address] eGFRon 10-19-2023 eGFR 52 mL/min/1.73 m2 Low >=59 [facility] Comment on above: Order Comment: Order added by Discern Expert. Performed By: #### 1 1908993, 58483719, 1925204, 8875274 ####[facility] [address] [place] [address] Consultation Noteon 10-15-19 Consultation Note [id number]#1.00T IFF Normal [facility] Cardiac Catherterization-Taylor gnosticon 09-23-2023 Cardiac Catherterization-Di agnostic [id number]#1.00T IFF Normal [facility] HPon 09-17-2023 H&P reviewed. The patient was examined and there are no changes to the H&P. Patient is undergoing RHC in setting of elevated RVSP and worsening SOB. [facility] NURSNOTEon 09-17-2023 NURSNOTE RN educated pt on d/ c instructions. RN encouraged pt to voice any questions or concerns. Pt verbalizes no questions or concerns at this time. Pt was wheeled off of unit with all of belongings. [facility] HPon 09-09-2023 [facility] Cardiology - [facility] Subjective Chiki Juarez is a 78 [...] of COPD and is currently followed at [facility]. He takes multiple inhalers. In June [...] of breath. He recently was seen at [facility] pulmonary and was recommended to follow-up [...] is w (more content not included)... Normal [facility] Office Visiton 09-09-2023 Follow-up visit [id number] Tremaine Juarez 1945 M Date Provider Department Center 09/09/[address] [facility] Family History Problem Relation Age of Onset Stroke Father Family Status - Relation Status Age at Father Level of Service:90429 [place] OFFICE/OUTPATIENT ESTABLISHED MOD MDM 30 MIN Normal [facility] CNOVSPon 07-30-2023 CNOVSP Visit (SP) Office ([facility]) CHIKI JUAREZ ([id number]) 1945 M Date Time Provider Department 07/30/23 [...] intermittent cough and shortness of breath from bronchitis/bronchiectas is. No fevers, night sweats, or weight loss. [...] (215 lb (more content not included)... Normal [facility] Office Visiton 07-28-2023 Follow-up visit [id number] Tremaine Juarez 1945 M Date Provider Department Center 07/28/2023 DANIELLA CARDONA KRISTEN [place] Family History Problem Relation Age of Onset Stroke Father Family Status - Relation Status Age at Father Level of Service:86744 [place] OFFICE/OUTPATIENT ESTABLISHED MOD MDM 30-39 MIN Normal [facility] Basic metabolic 2000 panelon 07-23-2023 Anion gap [Moles/Vol] 10 mmol/L Normal 9-18 [facility] Comment on above: Order Comment: Speci men Type: BLOOD SPECIMENOrdering Facility: [facility] Address: [address] [place] [address] Performed By: #### 2 4321-2 ####[facility] LABCLIA [id number] [place] [address] Calcium [Mass/Vol] 8.4 mg/dL Low 8.5-10.2 [facility] Comment on above: Order Comment: Speci men Type: BLOOD SPECIMENOrdering Facility: [facility] Address: [address] [place] [address] Performed By: #### 2 4321-2 ####[facility] LABCLIA [id number] [place] [address] Chloride [Moles/Vol] 103 mmol/L Normal 97-105 [facility] Comment on above: Order Comment: Speci men Type: BLOOD SPECIMENOrdering Facility: [facility] Address: [address] [place] [address] Performed By: #### 2 4321-2 ####[facility] LABCLIA [id number] [place] [address] CO2 [Moles/Vol] 24 mmol/L Normal 22-30 [facility] Comment on above: Order Comment: Speci men Type: BLOOD SPECIMENOrdering Facility: [facility] Address: [address] [place] [address] Performed By: #### 2 4321-2 ####[facility] LABCLIA [id number] [place] [address] Creatinine [Mass/Vol] 1.33 mg/dL High 0.73-1.22 [facility] Comment on above: Order Comment: Speci men Type: BLOOD SPECIMENOrdering Facility: [facility] Address: [address] [place] [address] Performed By: #### 2 4321-2 ####[facility] LABIA [id number] [place] [address] Creatinine and Glomerular filtration rate.predicted panel (S/P/Bld) 55 mL/min/1.73m??? Low >=60 [facility] Comment on above: Order Comment: Speci men Type: BLOOD SPECIMENOrdering Facility: [facility] Address: [facility] [place] [address] Result Comment: Ary mated Glomerular Filtration Rate [...] actual GFR. Performed By: #### 2 4321-2 ####[facility] LABCLIA [id number] [place] [address] Glucose [Mass/Vol] 156 mg/dL High 74-99 [facility] Comment on above: Order Comment: Liliya hadley Type: BLOOD SPECIMENOrdering Facility: [facility] Address: [address] [place] [address] Result Comment: The [place] Diabetes Association (ADA) provides guidance for cutoff [...] Standards of Medical Care in Diabetes 2016, [place] Diabetes Association. Diabetes Care. 2016.39(Suppl 1). Performed By: #### 2 4321-2 ####[facility] LABCLIA [id number] [place] [address] Potassium [Moles/Vol] 3.7 mmol/L Normal 3.7-5.1 [facility] Comment on above: Order Comment: Liliya hadley Type: BLOOD SPECIMENOrdering Facility: [facility] Address: [address] [place] [address] Performed By: #### 2 4321-2 ####[facility] LABCLIA [id number] [place] [address] Sodium [Moles/Vol] 137 mmol/L Normal 136-144 [facility] Comment on above: Order Comment: Speci men Type: BLOOD SPECIMENOrdering Facility: [facility] Address: [address] [place] [address] Performed By: #### 2 4321-2 ####[facility] LABCLIA [id number] [place] [id number] Urea nitrogen [Mass/Vol] 17 mg/dL Normal 9-24 [facility] Comment on above: Order Comment: Speci men Type: BLOOD SPECIMENOrdering Facility: [facility] Address: [address] [place] [address] Performed By: #### 2 4321-2 ####[facility] LABCLIA [id number] [place] [address] CBC W Auto Differential pane l (Bld)on 07-23-2023 Anisocytosis Ql (Bld) Present Normal [facility] Comment on above: Order Comment: Speci men Type: BLOOD SPECIMEN [facility]ing Facility: [facility] Address: [address] [place] [address] Performed By: #### S ERIMM #### [facility] CLIA [id number] [address] [place] [address] [place] Basophils (Bld) [#/Vol] 0.00 10*3/uL Normal <0.11 [facility] Comment on above: Order Comment: Speci men Type: BLOOD SPECIMEN Ordering Facility: [facility] Address: [address] [place] [address] Performed By: #### S ERIMM #### [facility] CLIA [id number] [address] [place] [address] [place] Basophils/100 WBC (Bld) 0.0 % Normal [facility] Comment on above: Order Comment: Speci men Type: BLOOD SPECIMEN [facility]ing Facility: [facility] Address: [address] [place] [address] Performed By: #### S ERIMM #### [facility] CLIA [id number] [address] [place] [address] [place] Differential cell count method Nom (Bld) Manual Normal [facility] Comment on above: Order Comment: Speci men Type: BLOOD SPECIMEN Ordering Facility: [facility] Address: [address] [place] [address] Performed By: #### S ERIMM #### [facility] CLIA [id number] [address] [place] [address] [place] Eosinophils (Bld) [#/Vol] 0.05 10*3/uL Normal <0.46 [facility] Comment on above: Order Comment: Speci men Type: BLOOD SPECIMEN [facility] Facility: [facility] Address: [address] [place] [address] Performed By: #### S ERIMM #### [facility] CLIA [id number] [address] [place] [address] [place] Eosinophils/100 WBC (Bld) 0.9 % Normal [facility] Comment on above: Order Comment: Speci men Type: BLOOD SPECIMEN [facility] Address: [address] [place] [address] Performed By: #### S ERIMM #### [facility] CLIA [id number] [address] [place] [address] [place] Erythrocyte distribution width (RBC) [Ratio] 15.8 % High 11.5-15.0 [facility] Comment on above: Order Comment: Speci men Type: BLOOD SPECIMEN [facility] Facility[facility] Address: [address] [place] [address] Performed By: #### S ERIMM #### [facility] CLIA [id number] [address] [place] [address] [place] Hematocrit (Bld) [Volume fraction] 31.8 % Low 39.0-51.0 [facility] Comment on above: Order Comment: Speci men Type: BLOOD SPECIMEN [facility] Facility: [facility] Address: [address] [place] [address] Performed By: #### S ERIMM #### [facility] CLIA [id number] [address] [place] [address] [place] Hemoglobin (Bld) [Mass/Vol] 10.0 g/dL Low 13.0-17.0 [facility] Comment on above: Order Comment: Speci men Type: BLOOD SPECIMEN [facility] Address: [address] [place] [address] Performed By: #### S ERIMM #### [facility] CLIA [id number] [address] [place] [address] [place] Lymphocytes (Bld) [#/Vol] 1.26 10*3/uL Normal 1.00-4.00 [facility] Comment on above: Order Comment: Speci men Type: BLOOD SPECIMEN [facility] Address: [address] [place] [address] Performed By: #### S ERIMM #### [facility] CLIA [id number] [address] [place] [address] [place] Lymphocytes/100 WBC (Bld) 21.9 % Normal [facility] Comment on above: Order Comment: Speci men Type: BLOOD SPECIMEN [facility] Address: [address] [place] [address] Performed By: #### S ERIMM #### [facility] CLIA [id number] [address] [place] [address] [place] MCH (RBC) [Entitic mass] 33.0 pg Normal 26.0-34.0 [facility] Comment on above: Order Comment: Speci men Type: BLOOD SPECIMEN [facility] Facility: [facility] Address: [address] [place] [address] Performed By: #### S ERIMM #### [facility] CLIA [id number] [address] [place] [address] [place] MCHC (RBC) [Mass/Vol] 31.4 g/dL Normal 30.5-36.0 [facility] Comment on above: Order Comment: Speci men Type: BLOOD SPECIMEN [facility] Address: [address] [place] [address] Performed By: #### S ERIMM #### [facility] CLIA [id number] [address] [place] [address] [place] [place] MCV (RBC) [Entitic vol] 105.0 fL High 80.0-100.0 [facility] Comment on above: Order Comment: Speci men Type: BLOOD SPECIMEN Ordering Facility: [facility] Address: [address] [place] [address] Performed By: #### S ERIMM #### [facility] CLIA [id number] [address] [place] [address] [place] Metamyelocytes/100 WBC (Bld) 0.9 % Normal [facility] Comment on above: Order Comment: Speci men Type: BLOOD SPECIMEN Ordering Facility: [facility] Address: [address] [place] [address] Performed By: #### S ERIMM #### [facility] CLIA [id number] [address] [place] [address] [place] Monocytes (Bld) [#/Vol] 2.08 10*3/uL High <0.87 [facility] Comment on above: Order Comment: Speci men Type: BLOOD SPECIMEN Ordering Facility: [facility] Address: [address] [place] [address] Performed By: #### S ERIMM #### [facility] CLIA [id number] [address] [place] [address] [place] Monocytes/100 WBC (Bld) 36.0 % Normal [facility] Comment on above: Order Comment: Speci men Type: BLOOD SPECIMEN Ordering Facility: [facility] Address: [address] [place] [address] Performed By: #### S ERIMM #### [facility] CLIA [id number] [address] [place] [address] [place] MYELO% 0.9 % Normal [facility] Comment on above: Order Comment: Speci men Type: BLOOD SPECIMEN Ordering Facility: [facility] Address: [address] [place] [address] Performed By: #### S ERIMM #### [facility] CLIA [id number] [address] [place] [address] [place] Neutrophils (Bld) [#/Vol] 2.27 10*3/uL Normal 1.45-7.50 [facility] Comment on above: Order Comment: Speci men Type: BLOOD SPECIMEN Ordering Facility: [facility] Address: [address] [place] [address] Performed By: #### S ERIMM #### [facility] CLIA [id number] [address] [place] [address] [place] Neutrophils/100 WBC (Bld) 39.4 % Normal [facility] Comment on above: Order Comment: Speci men Type: BLOOD SPECIMEN Ordering Facility: [facility] Address: [address] [place] [address] Performed By: #### S ERIMM #### [facility] CLIA [id number] [address] [place] [address] [place] Nucleated RBC (Bld) [#/Vol] 10*3/uL Normal <0.01 [facility] Comment on above: Order Comment: Speci men Type: BLOOD SPECIMEN Ordering Facility: [facility] Address: [address] [place] [address] Performed By: #### S ERIMM #### [facility] CLIA [id number] [address] [place] [address] [place] Nucleated RBC/100 WBC (Bld) [Ratio] 0.0 /100 WBC Normal [facility] Comment on above: Order Comment: Speci men Type: BLOOD SPECIMEN Ordering Facility: [facility] Address: [address] [place] [address] Performed By: #### S ERIMM #### [facility] CLIA [id number] [address] [place] [address] [place] Ovalocytes LM Ql (Bld) Few Normal [facility] Comment on above: Order Comment: Speci men Type: BLOOD SPECIMEN Ordering Facility: [facility] Address: [address] [place] [address] Performed By: #### S ERIMM #### [facility] CLIA [id number] [address] [place] [address] [place] Platelet mean volume (Bld) [Entitic vol] 10.1 fL Normal 9.0-12.7 [facility] Comment on above: Order Comment: Speci men Type: BLOOD SPECIMEN Ordering Facility: [facility] Address: [address] [place] [address] Performed By: #### S ERIMM #### [facility] CLIA [id number] [address] [place] [address] [place] Platelets (Bld) [#/Vol] 179 10*3/uL Normal 150-400 [facility] Comment on above: Order Comment: Speci men Type: BLOOD SPECIMEN Ordering Facility: [facility] Address: [address] [place] [address] Performed By: #### S ERIMM #### [facility] CLIA [id number] [address] [place] [address] [place] Platelets Estimate (Bld) [#/Vol] Adequate Normal [facility] Comment on above: Order Comment: Speci men Type: BLOOD SPECIMEN Ordering Facility: [facility] Address: [address] [place] [address] Performed By: #### S ERIMM #### [facility] CLIA [id number] [address] [place] [address] [place] Polychromasia LM Ql (Bld) Slight Normal [facility] Comment on above: Order Comment: Speci men Type: BLOOD SPECIMEN Ordering Facility: [facility] Address: [address] [place] [address] Performed By: #### S ERIMM #### [facility] CLIA [id number] [address] [place] [address] [place] RBC (Bld) [#/Vol] 3.03 10*6/uL Low 4.20-6.00 [facility] Comment on above: Order Comment: Speci men Type: BLOOD SPECIMEN Ordering Facility: [facility] Address: [address] [place] [address] Performed By: #### S ERIMM #### [facility] CLIA [id number] [address] [place] [address] [place] RED CELL MORPH Reviewed: see result s of individual morphologies Normal [facility] Comment on above: Order Comment: Speci men Type: BLOOD SPECIMEN Ordering Facility: [facility] Address: [address] [place] [address] Performed By: #### S ERIMM #### [facility] CLIA [id number] [address] [place] [address] [place] WBC (Bld) [#/Vol] 5.77 10*3/uL Normal 3.70-11.00 [facility] Comment on above: Order Comment: Speci men Type: BLOOD SPECIMEN Ordering Facility: [facility] Address: [address] [place] [address] Performed By: #### S ERIMM #### [facility] CLIA [id number] [address] [place] [address] [place] WBC Left Shift Ql (Bld) Present Normal [facility] Comment on above: Order Comment: Speci men Type: BLOOD SPECIMEN Ordering Facility: [facility] Address: [address] [place] [address] Performed By: #### S ERIMM #### [facility] CLIA [id number] [address] [place] [address] [place] IMMUNOFIXATION SCREEN, SERUM on 07-23-2023 INTERPRETATION (MPA) Atypical restricted bands are present in the IgG and lambda regions. Consistent with IgG lambda monoclonal gammopathy. Normal [facility] Comment on above: Order Comment: Speci men Type: BLOOD SPECIMENOrdering Facility: [facility] Address: [address] [place] [address] Performed By: #### I FESC ####[facility] [id number] [place] [address] [place] MPA RESULT M protein is present. Abnormal No M p rotein is identified. [facility] Comment on above: Order Comment: Speci men Type: BLOOD SPECIMENOrdering Facility: [facility] Address: [address] [place] [address] Performed By: #### I FESC ####[facility] [id number] [place] [address] [place] STAFF REVIEW ([facility]) Reviewed by Fran Boyd MD, Ph.D ([id number]) Normal [facility] Comment on above: Order Comment: Speci men Type: BLOOD SPECIMENOrdering Facility: [facility] Address: [address] [place] [address] Performed By: #### I FESC ####[facility] [id number] [place] [address] [place] IMMUNOGLOBULINS GAMon 2022 IgA [Mass/Vol] 72 mg/dL Normal 70-400 [facility] Comment on above: Order Comment: Speci men Type: BLOOD SPECIMEN Ordering Facility: [facility] Address: [address] [place] [address] Performed By: #### S ERIMM #### [facility] CLIA [id number] [address] [place] [address] [place] IgG [Mass/Vol] 777 mg/dL Normal 700-1600 [facility] Comment on above: Order Comment: Speci men Type: BLOOD SPECIMEN Ordering Facility: [facility] Address: [address] [place] [address] Performed By: #### S ERIMM #### [facility] CLIA [id number] [address] [place] [address] [place] IgM [Mass/Vol] 64 mg/dL Normal 40-230 [facility] Comment on above: Order Comment: Speci men Type: BLOOD SPECIMEN Ordering Facility: [facility] Address: [address] [place] [address] Performed By: #### S ERIMM #### [facility] CLIA [id number] [address] [place] [address] [place] KAPPA/ARDON,FREE,SERon 2022 Immunoglobulin light chains.kappa.free (S) [Mass/Vol] 29.6 mg/L High 3.3-19.4 [facility] Comment on above: Order Comment: Speci men Type: BLOOD SPECIMENOrdering Facility: [facility] Address: [address] [place] [address] Result Comment: Rare ly, increased serum free light chains levels may not be detected or accurately quantified due to prozone phenomenon or in high viscosity samples using this immunoturbidimetric assay. Correlation with other laboratory results and clinical findings is recommended. The [place] Free Light Chain was performed using the Binding Site Optilite immunoturbidimetric method. Result obtained with different assay methods or kits cannot be used interchangeably. Performed By: #### K LFRS ####[facility] [id number] [place] [address] [place] Immunoglobulin light chains.kappa/Immuno globulin light chains.lambda (S) [Mass ratio] 1.86 High 0.26-1.65 [facility] Comment on above: Order Comment: Speci men Type: BLOOD SPECIMENOrdering Facility: [facility] Address: [address] [place] [address] Performed By: #### K LFRS ####[facility] [id number] [place] [address] [place] Immunoglobulin light chains.lambda.free [Mass/Vol] 15.9 mg/L Normal 5.7-26.3 [facility] Comment on above: Order Comment: Speci men Type: BLOOD SPECIMENOrdering Facility: [facility] Address: [address] [place] [address] Result Comment: Rare ly, increased serum free [...] used interchangeably. Performed By: #### K LFRS ####[facility] [id number] [place] [address] [place] PROTEIN ELECTROPHORESIS SERU M WITH CARSON (P)on 07-23-2023 Albumin [Mass/Vol] 2.67 g/dL Low 3.43-5.41 [facility] Comment on above: Order Comment: Speci men Type: BLOOD SPECIMENOrdering Facility: [facility] Address: [address] [place] [address] Performed By: #### L [id number] ####[facility] [id number] [place] [address] [place] Alpha 1 globulin Elph [Mass/Vol] 0.54 g/dL High 0.18-0.43 [facility] Comment on above: Order Comment: Speci men Type: BLOOD SPECIMENOrdering Facility: [facility] Address: [address] [place] [address] Performed By: #### L [id number] ####[facility] [id number] [place] [address] [place] Alpha 2 globulin Elph [Mass/Vol] 0.94 g/dL Normal 0.42-0.98 [facility] Comment on above: Order Comment: Speci men Type: BLOOD SPECIMENOrdering Facility: [facility] Address: [address] [place] [address] Performed By: #### L [id number] ####[facility]IA [id number] [place] [address] [place] Beta globulin Elph [Mass/Vol] 0.65 g/dL Normal 0.61-1.17 [facility] Comment on above: Order Comment: Speci men Type: BLOOD SPECIMENOrdering Facility: [facility] Address: [address] [place] [address] Performed By: #### L [id number] ####[facility] [id number] [place] [address] [place] COMMENT (SERUM PROT ELECTRO) Monoclonal Protein analysis (immunofixation) is not indicated. Normal [facility] Comment on above: Order Comment: Speci men Type: BLOOD SPECIMENOrdering Facility: [facility] Address: [address] [place] [address] Performed By: #### L [id number] ####[facility] [id number] [place] [address] [place] Gamma globulin Elph [Mass/Vol] 0.71 g/dL Normal 0.53-1.51 [facility] Comment on above: Order Comment: Speci men Type: BLOOD SPECIMENOrdering Facility: [facility] Address: [address] [place] [address] Performed By: #### L [id number] ####[facility] [id number] [address] [place] INTERPRETATION COMMENT FOR PROTEIN ELECTROPHORESIS See separate immunofixation report for characterization of monoclonal gammopathy. Normal [facility] Comment on above: Order Comment: Speci men Type: BLOOD SPECIMENOrdering Facility: [facility] Address: [address] [place] [address] Performed By: #### L [id number] ####[facility]IA [id number] [address] [place] M-PROTEIN LOCATION Beta Fraction 1 [facility] Comment on above: Order Comment: Speci men Type: BLOOD SPECIMENOrdering Facility: [facility] Address: [address] [place] [address] Performed By: #### L [id number] ####[facility]IA [id number] [address] [place] Protein Fractions [Interp] An M protein is identified on protein electrophoresis. Abnormal No definitive M protein is identified on protein electrophoresis. [facility] Comment on above: Order Comment: Speci men Type: BLOOD SPECIMENOrdering Facility: [facility] Address: [address] [place] [address] Performed By: #### L [id number] ####[facility] [id number] [address] [place] Protein.monoclonal Elph [Mass/Vol] 0.20 g/dL High <=0.00 [facility] Comment on above: Order Comment: Speci men Type: BLOOD SPECIMENOrdering Facility: [facility] Address: [address] [place] [address] Performed By: #### L [id number] ####[facility]IA [id number] [place] [address] [place] SPE STAFF REVIEW Reviewed by Fran Boyd MD, Ph.D ([id number]) Normal [facility] Comment on above: Order Comment: Speci men Type: BLOOD SPECIMENOrdering Facility: [facility] Address: [address] [place] [address] Performed By: #### L [id number] ####[facility]IA [id number] [facility] [place] [address] [place] Prot SerPl-mCncon 07-23-2023 Protein [Mass/Vol] 5.5 g/dL Low 6.3-8.0 [facility] Comment on above: Order Comment: Speci men Type: BLOOD SPECIMEN Ordering Facility: [facility] Address: [address] [place] [address] Performed By: #### S ERIMM #### [facility] CLIA [id number] [address] [place] [address] [place] Office Visiton 05-21-2023 Follow-up visit [id number] Tremaine Juarez 1945 M Date Provider Department Center 05/21/2023 ANASTASIA LOVE Family History Problem Relation Age of Onset Stroke Father Family Status - Relation Status Age at Father Level of Service:93386 [place] OFFICE/OUTPATIENT ESTABLISHED LOW MDM 20-29 MIN Reason for Visit and Comments: Congestive Heart Failure [127] NSVT [Other] - AV block s/p PPM [Other] Normal [facility] CHEMISTRYOrdered By: SYSTEM SYSTEM on 01-26-2023 25-hydroxyvitamin D3 [Mass/Vol] 69.4 ng/mL Normal 30.0 - 100.0 ng/mL [facility] Remisol Albumin [Mass/Vol] 3.4 g/dL Normal 3.3 - 5.0 gm/dL [facility] Remisol Albumin/Globulin [Mass ratio] 0.9 {ratio} Low [...] Bilirubin [Mass/Vol] 0.3 mg/dL Normal 0.0 - 1.1 mg/dL [facility] Remisol Calcium [Mass/Vol] 8.6 mg/dL Low 8.9 - 11.1 mg/dL [facility] Chloride [Moles/Vol] 107 mmol/L Normal 101 - 111 mmol/L [facility] Remisol CO2 [Moles/Vol] 27 mmol/L Normal 21 - 31 mmol/L [facility] Remisol Creatinine [Mass/Vol] 1.5 mg/dL High 0.5 - 1.3 mg/dL [facility] Remisol Free T4 [Mass/Vol] 1.10 ng/dL Normal 0.58 - 1.64 ng/dL [facility] Remisol GFR/1.73 sq M.predicted among non-blacks MDRD (S/P/Bld) [Vol rate/Area] 48 mL/min/1.73 m2 Low >=59mL/min/1.73 m2 [facility] Chem S Globulin (S) [Mass/Vol] 3.7 g/dL Normal 1.4 - 4.0 gm/dL [facility] Remisol Glucose [Mass/Vol] 138 mg/dL Normal 55 - 199 mg/dL [facility] Potassium [Moles/Vol] 4.3 mmol/L Normal 3.5 - 5.3 mmol/L [facility] Remisol Prostate specific Ag [Mass/Vol] 0.3 ng/mL Normal 0.1 - 3.5 ng/mL [facility] Remisol Protein [Mass/Vol] 7.1 g/dL Normal 6.0 - 7.8 gm/dL [facility] Remisol Sodium [Moles/Vol] 142 mmol/L Normal 135 [...] Normal 0.0 - 2.0 % [facility] HemeAutoSS Basophils/Leukocyte s Auto (Bld) [Pure # fraction] 0.0 E9/L Normal 0.0 - 0.2 E9/L [facility] HemeAutoSS Eosinophils/100 WBC (Bld) 1.0 % Normal 0.0 - 8.0 % [facility] HemeAutoSS Eosinophils/Leukocy [place] Auto (Bld) [Pure # fraction] 0.0 E9/L Normal 0.0 - 0.5 E9/L [facility] HemeAutoSS Lymphocytes/100 WBC (Bld) 19.4 % Normal 14.0 - 50.0 % [facility] HemeAutoSS Lymphocytes/Leukocy [place] Auto (Bld) [Pure # fraction] 0.8 E9/L Low 1.0 - 4.0 E9/L [facility] HemeAutoSS Monocytes/100 WBC (Bld) 34.7 % High 4.0 - 14.0 % [facility] HemeAutoSS Monocytes/Leukocyte s Auto (Bld) [Pure # fraction] 1.4 E9/L High 0.2 - 1.0 E9/L [facility] HemeAutoSS Neutrophils/100 WBC (Bld) 44.6 % Normal 36.0 - 75.0 % [facility] HemeAutoSS Neutrophils/Leukocy [place] Auto (Bld) [Pure # fraction] 1.7 E9/L [...] 9.2 fL Normal 6.4 - 10.8 fL [facility] HemeAutoSS Platelets (Bld) [#/Vol] 225.0 E9/L Normal 150.0 - 500.0 E9/L [facility] HemeAutoSS RBC (Bld) [#/Vol] 3.3 E12/L Low 4.3 - 5.9 E12/L [facility] HemeAutoSS WBC corrected for nucl RBC Auto (Bld) [#/Vol] 3.9 E9/L Low 4.0 - 11.0 E9/L [facility] Comment on above: Result Comment: Slid e reviewed by ts . PROF CHEM 8 ([facility] MET)on Anion gap [Moles/Vol] 14.0 mmol/L Normal [facility] Comment on above: Performed By: #### B MP ####[facility] [address] [place], [place] [address]Dr. Trevor Nichols Calcium [Mass/Vol] 8.8 mg/dL Normal 8.5-10.1 [facility] Comment on above: Performed By: #### B MP ####[facility] [address] [place] [address]Dr. Trevor Nichols Chloride [Moles/Vol] 104 mmol/L Normal 98-107 [facility] Comment on above: Performed By: #### B MP ####[facility] [address] [place], [place] [address]Dr. Trevor Nichols CO2 [Moles/Vol] 26.0 mmol/L Normal 21.0-32.0 [facility] Comment on above: Performed By: #### B MP ####[facility] [address] [place], [place] [address]Dr. Trevor Nichols Creatinine [Mass/Vol] 1.49 mg/dL Critically high 0.70-1.30 [facility] Comment on above: Performed By: #### B MP ####[facility] [address] [place], [place] [address]Dr. Trevor Nichols EGFR-AF YEMENI 56 mL/min/1.73m2 Critically low >=60 [facility] Comment on above: Performed By: #### B MP ####[facility] [address] [place] [id number]. Trevor Nichols EGFR-NON AF YEMENI 46 mL/min/1.73m2 Critically low >=60 [facility] Comment on above: Performed By: #### B MP ####[facility] [address] [place] [id number]. Trevor Nichols Glucose [Mass/Vol] 115 mg/dL Critically high 74-106 [facility] Comment on above: Performed By: #### B MP ####[facility] [address] [place] [id number]. Trevor Nichols Potassium [Moles/Vol] 4.0 mmol/L Normal 3.5-5.1 [facility] Comment on above: Performed By: #### B MP ####[facility] [address] [place] [address]Dr. Trevor Nichols Sodium [Moles/Vol] 140 mmol/L Normal 136-145 [facility] Comment on above: Performed By: #### B MP ####[facility] [address] [place] [id number]. Vivifrancie Nichols Urea nitrogen [Mass/Vol] 22.0 mg/dL Critically high 7.0-18.0 [facility] Comment on above: Performed By: #### B MP ####[facility] [address] [place] [address]Dr. Trevor Nichols Urea nitrogen/Creatinine [Mass ratio] 14.8 mg/mg Normal [facility] Comment on above: Performed By: #### B MP ####[facility] [address] [place] [id number]. Trevor Nichols NM STRESS/REST MULTIon 04-16 NM STRESS/REST MULTI Patient: CHIKI JUAREZ Exam Date: 04/16/2022 : 1945 Gender:M Ordering : DR DANIELLA EASTON M.D. Admission #: [id number] Family : DR WILL SHERWOOD . Order #: [id number] CLICK HERE TO VIEW EXAM RADIOLOGY REPORT [...] Beatty MD on 04/16/2022 at 10:23 Normal [facility] ECHOCARDIO M/2D COMPLETEon 0 02-19-2022 ECHOCARDIO M/2D COMPLETE Patient: CHIKI JUAREZ Exam Date: 02/19/2022 : 1945 Gender:M Ordering : NANDINI NGO Admission #: [id number] Family : DR WILL SHERWOOD . Order #: [id number] CLICK HERE TO VIEW EXAM ECHOCARDIOGRAM REPORT [...] Easton M.D. on 02/19/2022 at 19:53 Normal [facility] LIPID PROFILEon 02-10-2022 CHOL-HDL RATIO NORM SEE BELOW Normal [facility] Comment on above: Result Comment: 3.3 - 4.4 LOW RISK 4.4 - 7.1 AVERAGE RISK 7.1 - 11.0 MODERATE RISK >11.0 HIGH RISK Performed By: #### L IPID #### [facility] [address] [place] [address] [address] Trevor Nichols Cholesterol [Mass/Vol] 171 mg/dL Normal <=200 [facility] Comment on above: Performed By: #### L IPID #### [facility] [address] [place], [place] [address] Dr. Trevor Nichols Cholesterol in HDL [Mass/Vol] 40 mg/dL Normal 40-60 [facility] Comment on above: Performed By: #### L IPID #### [facility] [address] [place] [address] [address] Trevor Nichols Cholesterol in LDL [Mass/Vol] 114.0 mg/dL Normal [facility] Comment on above: Performed By: #### L IPID #### [facility] [address] [place] [address] [address] Trevor Nichols Cholesterol.total/C holesterol in HDL [Mass ratio] 4.3 {ratio} Normal [facility] Comment on above: Performed By: #### L IPID #### [facility] [address] [place] [address] [address] Trevor Nichols HDL NORMAL > or = 60 mg/dl - LO W CARDIOVASCULAR RISK <40 mg/dl - HIGH CARDIOVASCULAR RISK Normal [facility] Comment on above: Performed By: #### L IPID #### [facility] [address] [place] [address] [address] Trevor Nichols LDL CALC NORMAL SEE BELOW Normal [facility] Comment on above: Result Comment: <100 mg/dl OPTIMAL 100 - 129 mg/dl NEAR OR ABOVE OPTIMAL 130 - 159 mg/dl BORDERLINE HIGH 160 - 189 mg/dl HIGH >190 mg/dl VERY HIGH Performed By: #### L IPID #### [facility] [address] [place] [address] [address] Trevor Nichols Triglyceride [Mass/Vol] 85 mg/dL Normal <=150 [facility] Comment on above: Performed By: #### L IPID #### [facility] [address] [place] [address] [address] Trevor Nichols VLDL CALC 17.0 mg/dL Normal [facility] Comment on above: Performed By: #### L IPID #### [facility] [address] [place] [address] Dr. Trevor Nichols BNPon 02-05-2022 Natriuretic peptide B (Bld) [Mass/Vol] 231.0 pg/mL Normal <=900.0 [facility] Comment on above: Performed By: #### H STROPN, BNP, BMP #### [facility] [address] [place] [address] Dr. Trevor Nichols CBC W MANUAL DIFFon 02-06-20 ANISOCYTOSIS 1+ Normal [facility] Comment on above: Performed By: #### C JOBY #### [facility] [address] [place] [address] Dr. Trevor Nichols ATYPICAL LYMPH # Normal [facility] Comment on above: Performed By: #### C JOBY #### [facility] [address] [place] [address] Dr. Trevor Nichols ATYPICAL LYMPH % Normal [facility] Comment on above: Performed By: #### C JOBY #### [facility] [address] [place] [address] Dr. Trevor Nichols BAND # 0.3 103/ul Normal 0.0-0.3 [facility] Comment on above: Performed By: #### C JOBY #### [facility] [address] [place] [address] Dr. Trevor Nichols BAND % 6 % Critically high 0-5 [facility] Comment on above: Performed By: #### C JOBY #### [facility] [address] [place] [address] Dr. Trevor Nichols BASOM # 0.00 103/ul Normal 0.00-0.10 [facility] Comment on above: Performed By: #### C JOBY #### [facility] [address] [place] [address] Dr. Trevor Nichols BASOM % 0.0 % Critically low 0.2-2.0 [facility] Comment on above: Performed By: #### C JOBY #### [facility] [address] [place], [place] [id number] Dr. Trevor Nichols BLAST # Normal [facility] Comment on above: Performed By: #### C JOBY #### [facility] [address] [place] [address] Dr. Trevor Nichols BLAST % Normal [facility] Comment on above: Performed By: #### C BCNADIA #### [facility] [address] [place] [address] Dr. Trevor Nichols CORRECTED WBC Normal 4.0-11.0 [facility] Comment on above: Performed By: #### C BCNADIA #### [facility] [address] [place] [address] Dr. Trevor Nichols EOS # 0.04 103/ul Normal 0.00-0.70 [facility] Comment on above: Performed By: #### C JOBY #### [facility] [address] [place] [address] Dr. Trevor Nichols EOS% 1.0 % Normal 0.9-7.0 [facility] Comment on above: Performed By: #### C JOBY #### [facility] [address] [place] [address] Dr. Trevor Nichols HCT 36.4 % Critically low 42.0-54.0 [facility] Comment on above: Performed By: #### C JOBY #### [facility] [address] [place] [address] Dr. Trevor Nichols HGB 11.4 g/dl Critically low 14.0-18.0 [facility] Comment on above: Performed By: #### C BCNADIA #### [facility] [address] [place] [address] Dr. Trevor Nichols HYPOCHROMASIA SLIGHT Normal [facility] Comment on above: Performed By: #### C BCNADIA #### [facility] [address] [place] [address] Dr. Trevor Nichols LYMPHM # 1.19 103/ul Critically low 1.20-3.80 [facility] Comment on above: Performed By: #### C JOBY #### [facility] [address] [place] [address] Dr. Trevor Nichols LYMPHM% 27.0 % Normal 20.5-60.0 [facility] Comment on above: Performed By: #### C JOBY #### [facility] [address] [address] [address] Trevor Nichols MCH 32.5 pg Normal 25.9-34.0 [facility] Comment on above: Performed By: #### C JOBY #### [facility] [address] [place] [address] Dr. Trevor Nichols MCHC 31.3 g/dl Normal 29.9-35.2 [facility] Comment on above: Performed By: #### C JOBY #### [facility] [address] [place] [address] Dr. Trevor Nichols MCV 103.7 fL Critically high 80.0-94.0 [facility] Comment on above: Performed By: #### C JOBY #### [facility] [address] [place] [address] Dr. Trevor Nichols METAMYELOCYTE # Normal [facility] Comment on above: Performed By: #### C JOBY #### [facility] [address] [place] [address] Dr. Trevor Nichols METAMYELOCYTE % Normal [facility] Comment on above: Performed By: #### C JOBY #### [facility] [address] [place] [address] Dr. Trevor Nichols MONOM# 1.28 103/ul Critically high 0.30-0.80 [facility] Comment on above: Performed By: #### C JOBY #### [facility] [address] [place] [address] Dr. Trevor Nichols MONOM% 29.0 % Critically high 1.7-12.0 [facility] Comment on above: Performed By: #### C JOBY #### [facility] [address] [place] [address] Dr. Trevor Nichols MPV 10.5 fL Normal 9.5-13.5 [facility] Comment on above: Performed By: #### C JOBY #### [facility] [address] [address] [address] Trevor Nichols MYELOCYTE # Normal [facility] Comment on above: Performed By: #### C BCNADIA #### [facility] [address] [address] [address] Trevor Nichols MYELOCYTE % Normal [facility] Comment on above: Performed By: #### C JOBY #### [facility] [address] [place] [address] Dr. Trevor Nichols NRBC Normal [facility] Comment on above: Performed By: #### C JOBY #### [facility] [address] [place] [address] Dr. Trevor Nichols PLT 161 103/ul Normal 150-450 [facility] Comment on above: Performed By: #### C JOBY #### [facility] [address] [place] [address] Dr. Trevor Nichols RBC 3.51 106/ul Critically low 4.70-6.10 [facility] Comment on above: Performed By: #### C JOBY #### [facility] [address] [place] [address] Dr. Trevor Nichols RDW 16.0 % Critically high 11.0-15.0 [facility] Comment on above: Performed By: #### C JOBY #### [facility] [address] [place] [address] Dr. Trevor Nichols SEG # 1.63 103/ul Normal 1.40-6.50 [facility] Comment on above: Performed By: #### C BCNADIA #### [facility] [address] [place] [address] Dr. Trevor Nichols SEG % 37.0 % Critically low 43.0-75.0 [facility] Comment on above: Performed By: #### C JOBY #### [facility] [address] [place] [address] Dr. Trevor Nichols WBC 4.4 103/ul Normal 4.0-11.0 [facility] Comment on above: Performed By: #### C BCNADIA #### [facility] [address] [address] [address] Trevor Nichols PROF 14(COMP METB)on 022 Albumin [Mass/Vol] 3.4 g/dL Normal 3.4-5.0 [facility] Comment on above: Performed By: #### H STROPN, BNP, BMP #### [facility] [address] [address] [address] Trevor Nichols Albumin/Globulin [Mass ratio] 0.9 {ratio} Normal [facility] Comment on above: Performed By: #### H STROPN, BNP, BMP #### [facility] [address] [address] [address] Trevor Nichols ALP [Catalytic activity/Vol] 99 U/L Normal 46-116 [facility] Comment on above: Performed By: #### H STROPN, BNP, BMP #### [facility] [address] [place] [address] Dr. Trevor Nichols ALT [Catalytic activity/Vol] 18 U/L Normal 16-63 [facility] Comment on above: Performed By: #### H STROPN, BNP, BMP #### [facility] [address] [address] [address] Trevor Nichols Anion gap [Moles/Vol] 13.5 mmol/L Normal [facility] Comment on above: Performed By: #### H STROPN, BNP, BMP #### [facility] [address] [place] [address] Dr. Trevor Nichols AST [Catalytic activity/Vol] 10 U/L Critically low 15-37 [facility] Comment on above: Performed By: #### H STROPN, BNP, BMP #### [facility] [address] [address] [address] Trevor Nichols Bilirubin [Mass/Vol] 0.5 mg/dL Normal 0.2-1.0 [facility] Comment on above: Performed By: #### H STROPN, BNP, BMP #### [facility] [address] [address] [address] Trevor Nichols Calcium [Mass/Vol] 8.8 mg/dL Normal 8.5-10.1 [facility] Comment on above: Performed By: #### H STROPN, BNP, BMP #### [facility] [address] [address] [address] Trevor Nichols Chloride [Moles/Vol] 106 mmol/L Normal 98-107 [facility] Comment on above: Performed By: #### H STROPN, BNP, BMP #### [facility] [address] [place] [address] Dr. Trevor Nichols CO2 [Moles/Vol] 24.3 mmol/L Normal 21.0-32.0 [facility] Comment on above: Performed By: #### H STROPN, BNP, BMP #### [facility] [address] [place] [address] Dr. Trevor Nichols Creatinine [Mass/Vol] 1.35 mg/dL Critically high 0.70-1.30 [facility] Comment on above: Performed By: #### H STROPN, BNP, BMP #### [facility] [address] [place] [address] Dr. Trevor Nichols EGFR-AF YEMENI >60 Normal >=60 [facility] Comment on above: Performed By: #### H STROPN, BNP, BMP #### [facility] [address] [place] [address] Dr. Trevor Nichols EGFR-NON AF YEMENI 52 mL/min/1.73m2 Critically low >=60 [facility] Comment on above: Performed By: #### H STROPN, BNP, BMP #### [facility] [address] [place] [address] Dr. Trevor Nichols Globulin (S) [Mass/Vol] 3.8 g/dL Normal [facility] Comment on above: Performed By: #### H STROPN, BNP, BMP #### [facility] [address] [place] [address] Dr. Trevor Nichols Glucose [Mass/Vol] 103 mg/dL Normal 74-106 [facility] Comment on above: Performed By: #### H STROPN, BNP, BMP #### [facility] [address] [place] [address] Dr. Trevor Nichols Potassium [Moles/Vol] 3.8 mmol/L Normal 3.5-5.1 [facility] Comment on above: Performed By: #### H STROPN, BNP, BMP #### [facility] [address] [address] [address] Trevor Nichols Protein [Mass/Vol] 7.2 g/dL Normal 6.4-8.2 [facility] Comment on above: Performed By: #### H STROPN, BNP, BMP #### [facility] [address] [address] [address] Trevor Nichols Sodium [Moles/Vol] 140 mmol/L Normal 136-145 [facility] Comment on above: Performed By: #### H STROPN, BNP, BMP #### [facility] [address] [place] [address] Dr. Trevor Nichols Urea nitrogen [Mass/Vol] 22.0 mg/dL Critically high 7.0-18.0 [facility] Comment on above: Performed By: #### H STROPN, BNP, BMP #### [facility] [address] [place] [address] Dr. Trevor Nichols Urea nitrogen/Creatinine [Mass ratio] 16.3 mg/mg Normal [facility] Comment on above: Performed By: #### H STROKALEN, BNP, BMP #### [facility] [address] [place] [address] Dr. Trevor Nichols TSHon 02-05-2022 TSH 3.360 uIU/mL Normal 0.358-3.740 [facility] Comment on above: Performed By: #### H STROPN, BNP, BMP #### [facility] [address] [place] [address] Dr. Trevor Nichols XR CHEST 2 Von [...] by: ALLAN FLOREZ Date: 2022-02-05 17:03 Normal [facility] XR BONE SURVEYon 09-25-2021 XR BONE [...] by: SHAY BERNSTEIN Date: 2021-09-25 07:30 Normal [facility] PROTEIN ELECTROPHERESISon Albumin [Mass/Vol] 3.2 g/dL Normal 2.9-4.4 [facility] Comment on above: Performed By: #### P RTELEC ####[facility] [address] [place], [place] [address]Dr. Trevor Nichols Albumin/Globulin [Mass ratio] 1.1 {ratio} Normal 0.7-1.7 [facility] Comment on above: Performed By: #### P RTELEC ####[facility] [address] [place], [place] [address]Dr. Trevor Nichols Xrtkm-4-Qrlaniui 0.3 g/dL Normal 0.0-0.4 [facility] Comment on above: Performed By: #### P RTELEC ####[facility] [address] [place], [place] [address]Dr. Trevor Nichols Kyats-4-Jlgrxvmk 0.8 g/dL Normal 0.4-1.0 [facility] Comment on above: Performed By: #### P RTELEC ####[facility] [address] [place], [place] [address]Dr. Trevor Nichols Beta Globulin 1.0 g/dL Normal 0.7-1.3 [facility] Comment on above: Performed By: #### P RTELEC ####[facility] [address] [place], [place] [address]Dr. Trevor Nichols Gamma Globulin 0.8 g/dL Normal 0.4-1.8 [facility] Comment on above: Performed By: #### P RTELEC ####[facility] [address] [place], [place] [address]Dr. Trevor Nichols Globulin (S) [Mass/Vol] 2.9 g/dL Normal 2.2-3.9 [facility] Comment on above: Performed By: #### P RTELEC ####[facility] [address] [place], [place] [address]Dr. Trevor Nichols M-Jorge 0.1 g/dL Critically high Not Observed [facility] Comment on above: Performed By: #### P RTELEC ####[facility] [address] [place], [place] [address]Dr. Trevor Nichols PDF . Normal [facility] Comment on above: Performed By: #### P RTELEC ####[facility] [address] [address]Dr. Trevor Nichols Please note: Comment Normal [facility] Comment on above: Result Comment: Prot ein electrophoresis scan will follow via computer, mail, or packaging assembler delivery. Performed By: #### P RTELEC ####[facility] [address] [address]Dr. Trevor Nichols Protein [Mass/Vol] 6.1 g/dL Normal 6.0-8.5 [facility] Comment on above: Performed By: #### P RTELEC ####[facility] [address] [address]Dr. Trevor Nichols PROF CHEM 8 (BAS METB)on Anion gap [Moles/Vol] 16.3 mmol/L Normal [facility] Comment on above: Performed By: #### H STROPN, BNP, BMP #### [facility] [address] [address] [address] Trevor Nichols Calcium [Mass/Vol] 9.1 mg/dL Normal 8.4-10.2 [facility] Comment on above: Performed By: #### H STROPN, BNP, BMP #### [facility] [address] [place] [address] Dr. Trevor Nichols Chloride [Moles/Vol] 104 mmol/L Normal 98-107 [facility] Comment on above: Performed By: #### H STROPN, BNP, BMP #### [facility] [address] [address] [address] Trevor Nichols CO2 [Moles/Vol] 23.3 mmol/L Normal 22.0-30.0 [facility] Comment on above: Performed By: #### H STROPN, BNP, BMP #### [facility] [address] [address] [address] Trevor Nichols Creatinine [Mass/Vol] 1.28 mg/dL Critically high 0.66-1.25 [facility] Comment on above: Performed By: #### H STROPN, BNP, BMP #### [facility] [address] [address] [address] Trevor Nichols EGFR-AF YEMENI >60 Normal >=60 [facility] Comment on above: Performed By: #### H STROPN, BNP, BMP #### [facility] [address] [address] [address] Trevor Nichols EGFR-NON AF YEMENI 55 mL/min/1.73m2 Critically low >=60 [facility] Comment on above: Performed By: #### H STROPN, BNP, BMP #### [facility] [address] [address] [address] Trevor Nichols Glucose [Mass/Vol] 98 mg/dL Normal 74-106 [facility] Comment on above: Performed By: #### H STROPN, BNP, BMP #### [facility] [address] [address] [address] Trevor Nichols Potassium [Moles/Vol] 3.6 mmol/L Normal 3.4-5.0 [facility] Comment on above: Performed By: #### H STROPN, BNP, BMP #### [facility] [address] [address] [address] Trevor Nichols Sodium [Moles/Vol] 140 mmol/L Normal 137-145 [facility] Comment on above: Performed By: #### H STROPN, BNP, BMP #### [facility] [address] [place] [address] Dr. Trevor Nichols Urea nitrogen [Mass/Vol] 25.0 mg/dL Critically high 9.0-20.0 [facility] Comment on above: Performed By: #### H STROPN, BNP, BMP #### [facility] [address] [place] [address] Dr. Trevor Nichols Urea nitrogen/Creatinine [Mass ratio] 19.5 mg/mg Normal [facility] Comment on above: Performed By: #### H STROPN, BNP, BMP #### [facility] [address] [address] [address] Trevor Nichols XR MODIFIED BARIUM SWALLOWon [...] by: SHAY BERNSTEIN Date: 2021-09-05 10:40 Normal [facility] CULTURE SPUTUMon 08-01-2021 CULTURE SPUTUM Isolate [...] <=0.25 S F Levofloxacin <=0.12 S F Trimethoprim/Sulfametho xazole <=20 S F Normal [facility] Comment on above: Performed By: #### H STROPN, BNP, BMP #### [facility] [address] [address] [address] Trevor Nichols SPUTUM GRAM STAINon 07-30-20 21 COMMENTS Normal [facility] Comment on above: Performed By: #### S PUTGS ####[facility] [address] [address]DrJeffery Nichols DIPHTHEROIDS Normal [facility] Comment on above: Performed By: #### S PUTGS ####[facility] [address] [address]DrJeffery Nichols EPITHELIALS >25 Normal [facility] Comment on above: Performed By: #### S PUTGS ####[facility] [address] [address]Dr. Trevor Nichols FUNGAL ELEMENTS Normal [facility] Comment on above: Performed By: #### S PUTGS ####[facility] [address] [address]Dr. Trevor Nichols GRAM NEG BACILLI RARE Normal [facility] Comment on above: Performed By: #### S PUTGS ####[facility] [address] [address]Dr. Trevor Nichols GRAM NEG DIPPLOCOCCI Normal [facility] Comment on above: Performed By: #### S PUTGS ####[facility] [address] [place], [place] [address]Dr. Trevor Nichols GRAM POS BACILLI MANY Normal [facility] Comment on above: Performed By: #### S PUTGS ####[facility] [address] [address]Dr. Trevor Nichols GRAM POSITIVE COCCI MANY Normal [facility] Comment on above: Performed By: #### S PUTGS ####[facility] [address] [place], [place] [address]Dr. Trevor Nichols WBC (Bld) [#/Vol] 10*3/uL Normal [facility] Comment on above: Performed By: #### S PUTGS ####[facility] [address] [place], [place] [address]Dr. Trevor Nichols ECHOCARDIO M/2D COMPLETEon 1 09-24-2020 ECHOCARDIO M/2D COMPLETE Patient: CHIKI JUAREZ Exam Date: 07/24/2021 : 1945 Gender:M Ordering : NANDINI [employer] Admission #: [id number] Family : DR WILL SHERWOOD . Order #: [id number] CLICK HERE TO VIEW EXAM ECHOCARDIOGRAM REPORT [...] M.D. on 07/24/2021 at 20:08 Normal [facility] CBC W MANUAL DIFFon 10-22-20 21 ATYPICAL LYMPH # Normal [facility] Comment on above: Performed By: #### H STROPN, BNP, BMP #### [facility] [address] [address] [address] Trevor Nichols ATYPICAL LYMPH % Normal [facility] Comment on above: Performed By: #### H STROPN, BNP, BMP #### [facility] [address] [address] [address] Trevor Nichols BAND # 0.1 103/ul Normal 0.0-0.3 [facility] Comment on above: Performed By: #### H STROPN, BNP, BMP #### [facility] [address] [place] [address] Dr. Trevor Nichols BAND % 2 % Normal 0-5 [facility] Comment on above: Performed By: #### H STROPN, BNP, BMP #### [facility] [address] [place] [address] Dr. Trevor Nichols BASOM # 0.00 103/ul Normal 0.00-0.10 [facility] Comment on above: Performed By: #### H STROPN, BNP, BMP #### [facility] [address] [place] [address] Dr. Trevor Nichols BASOM % 0.0 % Critically low 0.2-2.0 [facility] Comment on above: Performed By: #### H STROPN, BNP, BMP #### [facility] [address] [place] [address] Dr. Trevor Nichols BLAST # Normal [facility] Comment on above: Performed By: #### H STROPN, BNP, BMP #### [facility] [address] [place] [address] Dr. Trevor Nichols BLAST % Normal [facility] Comment on above: Performed By: #### H STROPN, BNP, BMP #### [facility] [address] [place] [address] Dr. Trevor Nichols CORRECTED WBC Normal 4.0-11.0 [facility] Comment on above: Performed By: #### H STROPN, BNP, BMP #### [facility] [address] [place] [address] Dr. Trevor Nichols EOS # 0.06 103/ul Normal 0.00-0.70 [facility] Comment on above: Performed By: #### H STROPN, BNP, BMP #### [facility] [address] [place] [address] Dr. Trevor Nichols EOS% 1.0 % Normal 0.9-7.0 [facility] Comment on above: Performed By: #### H STROPN, BNP, BMP #### [facility] [address] [address] [address] Trevor Nichols HCT 31.6 % Critically low 42.0-54.0 [facility] Comment on above: Performed By: #### H STROPN, BNP, BMP #### [facility] [address] [address] [address] Trevor Nichols HGB 9.7 g/dl Critically low 14.0-18.0 [facility] Comment on above: Performed By: #### H STROPN, BNP, BMP #### [facility] [address] [address] [address] Trevor Nichols LYMPHM # 0.46 103/ul Critically low 1.20-3.80 [facility] Comment on above: Performed By: #### H STROPN, BNP, BMP #### [facility] [address] [address] [address] Trevor Nichols LYMPHM% 8.0 % Critically low 20.5-60.0 [facility] Comment on above: Performed By: #### H STROPN, BNP, BMP #### [facility] [address] [address] [address] Trevor Nichols MACROCYTOSIS 1+ Normal [facility] Comment on above: Performed By: #### H STROPN, BNP, BMP #### [facility] [address] [address] [address] Trevor Nichols MCH 33.6 pg Normal 25.9-34.0 [facility] Comment on above: Performed By: #### H STROPN, BNP, BMP #### [facility] [address] [address] [address] Trevor Nichols MCHC 30.7 g/dl Normal 29.9-35.2 [facility] Comment on above: Performed By: #### H STROPN, BNP, BMP #### [facility] [address] [address] [address] Trevor Nichols MCV 109.3 fL Critically high 80.0-94.0 [facility] Comment on above: Performed By: #### H STROPN, BNP, BMP #### [facility] [address] [address] [address] Trevor Nichols METAMYELOCYTE # 0.1 103/ul Normal [facility] Comment on above: Performed By: #### H STROPN, BNP, BMP #### [facility] [address] [address] [address] Trevor Nichols METAMYELOCYTE % 2 % Normal [facility] Comment on above: Performed By: #### H STROPN, BNP, BMP #### [facility] [address] [address] [address] Trevor Nichols MONOM# 2.22 103/ul Critically high 0.30-0.80 [facility] Comment on above: Performed By: #### H STROPN, BNP, BMP #### [facility] [address] [address] [address] Trevor Nichols MONOM% 39.0 % Critically high 1.7-12.0 [facility] Comment on above: Performed By: #### H STROPN, BNP, BMP #### [facility] [address] [address] [address] Trevor Nichols MPV 9.4 fL Critically low 9.5-13.5 [facility] Comment on above: Performed By: #### H STROPN, BNP, BMP #### [facility] [address] [address] [address] Trevor Nichols MYELOCYTE # 0.3 103/ul Normal [facility] Comment on above: Performed By: #### H STROPN, BNP, BMP #### [facility] [address] [address] [address] Trevor Nichols MYELOCYTE % 6 % Normal [facility] Comment on above: Performed By: #### H STROPN, BNP, BMP #### [facility] [address] [address] [address] Trevor Nichols NRBC Normal [facility] Comment on above: Performed By: #### H STROPN, BNP, BMP #### [facility] [address] [address] [address] Trevor Nichols PLT 202 103/ul Normal 150-450 [facility] Comment on above: Performed By: #### H STROPN, BNP, BMP #### [facility] [address] [address] [address] Trevor Nichols RBC 2.89 106/ul Critically low 4.70-6.10 [facility] Comment on above: Performed By: #### H STROPN, BNP, BMP #### [facility] [address] [address] [address] Trevor Nichols RDW 15.4 % Critically high 11.0-15.0 [facility] Comment on above: Performed By: #### H STROPN, BNP, BMP #### [facility] [address] [address] [address] Trevor Nichols SEG # 2.39 103/ul Normal 1.40-6.50 [facility] Comment on above: Performed By: #### H STROPN, BNP, BMP #### [facility] [address] [address] [address] Trevor Nichols SEG % 42.0 % Critically low 43.0-75.0 [facility] Comment on above: Performed By: #### H STROPN, BNP, BMP #### [facility] [address] [address] [address] Trevor Nichols WBC 5.7 103/ul Normal 4.0-11.0 [facility] Comment on above: Performed By: #### H STROPN, BNP, BMP #### [facility] [address] [address] [address] Trevor Nichols PROF CHEM 8 (BAS METB)on Anion gap [Moles/Vol] 13.1 mmol/L Normal [facility] Comment on above: Performed By: #### B MP ####[facility] [address] [address]Dr. Trevor Nichols Calcium [Mass/Vol] 8.8 mg/dL Normal 8.4-10.2 [facility] Comment on above: Performed By: #### B MP ####[facility] [address] [id number]. Trevor Nichols Chloride [Moles/Vol] 104 mmol/L Normal 98-107 [facility] Comment on above: Performed By: #### B MP ####[facility] [address] [id number]. Trevor Nichols CO2 [Moles/Vol] 24.1 mmol/L Normal 22.0-30.0 [facility] Comment on above: Performed By: #### B MP ####[facility] [address] [id number]. Trevor Nichols Creatinine [Mass/Vol] 1.26 mg/dL Critically high 0.66-1.25 [facility] Comment on above: Performed By: #### B MP ####[facility] [address] [address]Dr. Trevor Simone EGFR-AF YEMENI >60 Normal >=60 [facility] Comment on above: Performed By: #### B MP ####[facility] [address] [place], [place] [id number]. Trevor Nichols EGFR-NON AF YEMENI 56 mL/min/1.73m2 Critically low >=60 [facility] Comment on above: Performed By: #### B MP ####[facility] [address] [place], [place] [address]Dr. Trevor Nichols Glucose [Mass/Vol] 98 mg/dL Normal 74-106 [facility] Comment on above: Performed By: #### B MP ####[facility] [address] [place], [place] [address]Dr. Trevor Nichols Potassium [Moles/Vol] 4.2 mmol/L Normal 3.4-5.0 [facility] Comment on above: Performed By: #### B MP ####[facility] [address] [place], [place] [address]Dr. Trevor Nichols Sodium [Moles/Vol] 137 mmol/L Normal 137-145 [facility] Comment on above: Performed By: #### B MP ####[facility] [address] [address]Dr. Trevor Nichols Urea nitrogen [Mass/Vol] 20.0 mg/dL Normal 9.0-20.0 [facility] Comment on above: Performed By: #### B MP ####[facility] [address] [place], [place] [address]Dr. Trevor Nichols Urea nitrogen/Creatinine [Mass ratio] 15.9 mg/mg Normal [facility] Comment on above: Performed By: #### B MP ####[facility] [address] [place], [place] [address]Dr. Trevor Nichols CBC AUTO DIFFon 05-16-2021 BASO # 0.0 103/ul Normal 0.0-0.1 [facility] Comment on above: Performed By: #### C BC ####[facility] [address] [place], [place] [address]Dr. Trevor Simone Basophils/100 WBC (Bld) 0.2 % Normal 0.2-2.0 [facility] Comment on above: Performed By: #### C BC ####[facility] [address] [place], [place] [address]Dr. Trevor Nichols EO # 0.0 103/ul Normal 0.0-0.7 [facility] Comment on above: Performed By: #### C BC ####[facility] [address] [place], [place] [address]Dr. Trevor Simone Eosinophils/100 WBC (Bld) 0.0 % Critically low 0.9-7.0 [facility] Comment on above: Performed By: #### C BC ####[facility] [address] [place], [place] [address]Dr. Trevor Nichols Erythrocyte distribution width (RBC) [Ratio] 15.1 % Critically high 11.0-15.0 [facility] Comment on above: Performed By: #### C BC ####[facility] [address] [place], [place] [address]Dr. Trevor Nichols Hematocrit (Bld) [Volume fraction] 32.9 % Critically low 42.0-54.0 [facility] Comment on above: Performed By: #### C BC ####[facility] [address] [address]Dr. Trevor Nichols Hemoglobin (Bld) [Mass/Vol] 10.5 g/dL Critically low 14.0-18.0 [facility] Comment on above: Performed By: #### C BC ####[facility] [address] [address]Dr. Trevor Nichols IG # 0.29 10e3/ul Critically high 0.00-0.03 [facility] Comment on above: Performed By: #### C BC ####[facility] [address] [address]Dr. Trevor Nichols IG % 6.5 % Critically high 0.0-0.5 [facility] Comment on above: Performed By: #### C BC ####[facility] [address] [place], [place] [address]Dr. Trevor Nichols LYMPH # 0.2 103/ul Critically low 1.2-3.8 [facility] Comment on above: Performed By: #### C BC ####[facility] [address] [address]Dr. Trevor Nichols Lymphocytes/100 WBC (Bld) 5.4 % Critically low 20.5-60.0 [facility] Comment on above: Performed By: #### C BC ####[facility] [address] [address]Dr. Trevor Nichols MANUAL DIFF REQ NO Normal [facility] Comment on above: Performed By: #### C BC ####[facility] [address] [place], [place] [address]Dr. Trevor Nichols MCH (RBC) [Entitic mass] 33.8 pg Normal 25.9-34.0 [facility] Comment on above: Performed By: #### C BC ####[facility] [address] [place], [place] [address]Dr. Trevor Nichols MCHC (RBC) [Mass/Vol] 31.9 g/dL Normal 29.9-35.2 [facility] Comment on above: Performed By: #### C BC ####[facility] [address] [id number]. Trevor Nichols MCV (RBC) [Entitic vol] 105.8 fL Critically high 80.0-94.0 [facility] Comment on above: Performed By: #### C BC ####[facility] [address] [id number]. Trevor Nichols MONO # 0.3 103/ul Normal 0.3-0.8 [facility] Comment on above: Performed By: #### C BC ####[facility] [address] [place], [place] [address]Dr. Trevor Nichols Monocytes/100 WBC (Bld) 7.6 % Normal 1.7-12.0 [facility] Comment on above: Performed By: #### C BC ####[facility] [address] [place], [place] [address]Dr. Trevor Nichols NEUT # 3.6 103/ul Normal 1.4-6.5 [facility] Comment on above: Performed By: #### C BC ####[facility] [address] [place], [place] [address]Dr. Trevor Nichols Neutrophils/100 WBC (Bld) 80.3 % Critically high 43.0-75.0 [facility] Comment on above: Performed By: #### C BC ####[facility] [address] [place], [place] [address]Dr. Trevor Nichols Platelet mean volume (Bld) [Entitic vol] 10.2 fL Normal 9.5-13.5 [facility] Comment on above: Performed By: #### C BC ####[facility] [address] [place], [place] [address]Dr. Trevor Nichols PLT 192 103/ul Normal 150-450 [facility] Comment on above: Performed By: #### C BC ####[facility] [address] [place], [place] [id number]. Trevor Nichols RBC 3.11 106/ul Critically low 4.70-6.10 [facility] Comment on above: Performed By: #### C BC ####[facility] [address] [place], [place] [address]JaJeffery Nichols WBC 4.5 103/ul Normal 4.0-11.0 [facility] Comment on above: Performed By: #### C ####[facility] [address] [place], [place] [address] STROKE HEAD WOon 05-16-20 21 [...] SHAY BERNSTEIN Date: 2021-05-16 14:45 Normal [facility] CTA NECK WO W CONon 05-16-20 21 [...] SHAY BERNSTEIN Date: 2021-05-16 16:53 Normal [facility] IRON AND TIBCon 05-16-2021 % SATURATION 16.2 % Normal [facility] Comment on above: Performed By: #### F ETIBC, B12FOL #### [facility] [address] [address] [address] Trevor Nichols Iron [Mass/Vol] 32.0 ug/dL Critically low 49.0-181.0 [facility] Comment on above: Performed By: #### F ETIBC, B12FOL #### [facility] [address] [address] [address] Trevor Nichols TIBC DIRECT 198.0 ug/dL Critically low 261.0-497.0 [facility] Comment on above: Performed By: #### F [place], B12FOL #### [facility] [address] [address] [address] Trevor Nichols PROF CHEM 8 (BAS METB)on Anion gap [Moles/Vol] 14.9 mmol/L Normal [facility] Comment on above: Performed By: #### B MP #### [facility] [address] [address] [address] Trevor Nichols Calcium [Mass/Vol] 9.2 mg/dL Normal 8.4-10.2 [facility] Comment on above: Performed By: #### B MP #### [facility] [address] [address] [address] Trevor Nichols Chloride [Moles/Vol] 105 mmol/L Normal 98-107 [facility] Comment on above: Performed By: #### B MP #### [facility] [address] [address] [address] Trevor Nichols CO2 [Moles/Vol] 21.6 mmol/L Critically low 22.0-30.0 [facility] Comment on above: Performed By: #### B MP #### [facility] [address] [address] [address] Trevor Nichols Creatinine [Mass/Vol] 1.36 mg/dL Critically high 0.66-1.25 [facility] Comment on above: Performed By: #### B MP #### [facility] [address] [address] [address] Trevor Nichols EGFR-AF YEMENI >60 Normal >=60 [facility] Comment on above: Performed By: #### B MP #### [facility] [address] [address] [address] Trevor Nichols EGFR-NON AF YEMENI 51 mL/min/1.73m2 Critically low >=60 [facility] Comment on above: Performed By: #### B MP #### [facility] [address] [address] [address] Trevor Nichols Glucose [Mass/Vol] 206 mg/dL Critically high 74-106 [facility] Comment on above: Performed By: #### B MP #### [facility] [address] [address] [address] Trevor Nichols Potassium [Moles/Vol] 4.5 mmol/L Normal 3.4-5.0 [facility] Comment on above: Performed By: #### B MP #### [facility] [address] [address] [address] Trevor Nichols Sodium [Moles/Vol] 137 mmol/L Normal 137-145 [facility] Comment on above: Performed By: #### B MP #### [facility] [address] [place] [address] Dr. Trevor Nichols Urea nitrogen [Mass/Vol] 26.0 mg/dL Critically high 9.0-20.0 [facility] Comment on above: Performed By: #### B MP #### [facility] [address] [place] [address] Dr. Trevor Nichols Urea nitrogen/Creatinine [Mass ratio] 19.1 mg/mg Normal [facility] Comment on above: Performed By: #### B MP #### [facility] [address] [place] [address] Dr. Trevor Nichols VIT B12 AND FOLATEon 021 Cobalamin (Vitamin B12) [Mass/Vol] pg/mL Critically high 239.0-931.0 [facility] Comment on above: Performed By: #### F ETIBC, B12FOL #### [facility] [address] [place] [address] Dr. Trevor Nichols FOLATE 15.40 ng/mL Normal >=2.76 [facility] Comment on above: Performed By: #### F ETIBC, B12FOL #### [facility] [address] [place] [address] Dr. Trevor Nichols BNPon 05-15-2021 Natriuretic peptide B (Bld) [Mass/Vol] 379.0 pg/mL Normal <=900.0 [facility] Comment on above: Performed By: #### H STROPN, BNP, BMP #### [facility] [address] [place] [address] Dr. Trevro Nichols CBC W MANUAL DIFFon 05-15-20 21 ATYPICAL LYMPH # Normal [facility] Comment on above: Performed By: #### H STROPN, BNP, BMP #### [facility] [address] [place] [address] Dr. Trevor Nichols ATYPICAL LYMPH % Normal [facility] Comment on above: Performed By: #### H STROPN, BNP, BMP #### [facility] [address] [address] [address] Trevor Nichols BAND # 0.0 103/ul Normal 0.0-0.3 [facility] Comment on above: Performed By: #### H STROPN, BNP, BMP #### [facility] [address] [address] [address] Trevor Nichols BAND % 1 % Normal 0-5 [facility] Comment on above: Performed By: #### H STROPN, BNP, BMP #### [facility] [address] [address] [address] Trevor Nichols BASOM # 0.00 103/ul Normal 0.00-0.10 [facility] Comment on above: Performed By: #### H STROPN, BNP, BMP #### [facility] [address] [place] [address] Dr. Trevor Nichols BASOM % 0.0 % Critically low 0.2-2.0 [facility] Comment on above: Performed By: #### H STROPN, BNP, BMP #### [facility] [address] [address] [address] Trevor Nichols BLAST # Normal [facility] Comment on above: Performed By: #### H STROPN, BNP, BMP #### [facility] [address] [place] [address] Dr. Trevor Nichols BLAST % Normal [facility] Comment on above: Performed By: #### H STROPN, BNP, BMP #### [facility] [address] [place] [address] Dr. Trevor Nichols BRENDA CELLS SLIGHT Normal [facility] Comment on above: Performed By: #### H STROPN, BNP, BMP #### [facility] [address] [place] [address] Dr. Trevor Nichols CORRECTED WBC Normal 4.0-11.0 [facility] Comment on above: Performed By: #### H STROPN, BNP, BMP #### [facility] [address] [place] [address] Dr. Trevor Nichols EOS # 0.05 103/ul Normal 0.00-0.70 [facility] Comment on above: Performed By: #### H STROPN, BNP, BMP #### [facility] [address] [address] [address] Trevor Nichols EOS% 1.0 % Normal 0.9-7.0 [facility] Comment on above: Performed By: #### H STROPN, BNP, BMP #### [facility] [address] [address] [address] Trevor Nichols HCT 32.5 % Critically low 42.0-54.0 [facility] Comment on above: Performed By: #### H STROPN, BNP, BMP #### [facility] [address] [address] [address] Trevor Nichols HGB 10.5 g/dl Critically low 14.0-18.0 [facility] Comment on above: Performed By: #### H STROPN, BNP, BMP #### [facility] [address] [place] [address] Dr. Trevor Nichols HYPOCHROMASIA 2+ Normal [facility] Comment on above: Performed By: #### H STROPN, BNP, BMP #### [facility] [address] [address] [address] Trevor Nichols LYMPHM # 1.03 103/ul Critically low 1.20-3.80 [facility] Comment on above: Performed By: #### H STROPN, BNP, BMP #### [facility] [address] [address] [address] Trevor Nichols LYMPHM% 22.0 % Normal 20.5-60.0 [facility] Comment on above: Performed By: #### H STROPN, BNP, BMP #### [facility] [address] [place] [address] Dr. Trevor Nichols MACROCYTOSIS 2+ Normal [facility] Comment on above: Performed By: #### H STROPN, BNP, BMP #### [facility] [address] [place] [address] Dr. Trevor Nichols MCH 34.5 pg Critically high 25.9-34.0 [facility] Comment on above: Performed By: #### H STROPN, BNP, BMP #### [facility] [address] [address] [address] Trevor Nichols MCHC 32.3 g/dl Normal 29.9-35.2 [facility] Comment on above: Performed By: #### H STROPN, BNP, BMP #### [facility] [address] [address] [address] Trevor Nichols MCV 106.9 fL Critically high 80.0-94.0 [facility] Comment on above: Performed By: #### H STROPN, BNP, BMP #### [facility] [address] [place] [address] Dr. Trevor Nichols METAMYELOCYTE # Normal [facility] Comment on above: Performed By: #### H STROPN, BNP, BMP #### [facility] [address] [place] [address] Dr. Trevor Nichols METAMYELOCYTE % Normal [facility] Comment on above: Performed By: #### H STROPN, BNP, BMP #### [facility] [address] [place] [address] Dr. Trevor Nichols MONOM# 1.74 103/ul Critically high 0.30-0.80 [facility] Comment on above: Performed By: #### H STROPN, BNP, BMP #### [facility] [address] [place] [address] Dr. Trevor Nichols MONOM% 37.0 % Critically high 1.7-12.0 [facility] Comment on above: Performed By: #### H STROPN, BNP, BMP #### [facility] [address] [place] [address] Dr. Trevor Nichols MPV 10.8 fL Normal 9.5-13.5 [facility] Comment on above: Performed By: #### H STROPN, BNP, BMP #### [facility] [address] [place] [address] Dr. Trevor Nichols MYELOCYTE # Normal [facility] Comment on above: Performed By: #### H STROPN, BNP, BMP #### [facility] [address] [address] [address] Trevor Nichols MYELOCYTE % Normal [facility] Comment on above: Performed By: #### H STROPN, BNP, BMP #### [facility] [address] [address] [address] Trevor Nichols NRBC Normal [facility] Comment on above: Performed By: #### H STROPN, BNP, BMP #### [facility] [address] [address] [address] Trevor Nichols PLT 222 103/ul Normal 150-450 [facility] Comment on above: Performed By: #### H STROPN, BNP, BMP #### [facility] [address] [place] [address] Dr. Trevor Nichols POIKILOCYTOSIS 2+ Normal [facility] Comment on above: Performed By: #### H STROPN, BNP, BMP #### [facility] [address] [address] [address] Trevor Nichols RBC 3.04 106/ul Critically low 4.70-6.10 [facility] Comment on above: Performed By: #### H STROPN, BNP, BMP #### [facility] [address] [place] [address] Dr. Trevor Nichols RDW 15.6 % Critically high 11.0-15.0 [facility] Comment on above: Performed By: #### H STROPN, BNP, BMP #### [facility] [address] [place] [address] Dr. Trevor Nichols SEG # 1.83 103/ul Normal 1.40-6.50 [facility] Comment on above: Performed By: #### H STROPN, BNP, BMP #### [facility] [address] [place] [address] Dr. Trevor Nichols SEG % 39.0 % Critically low 43.0-75.0 [facility] Comment on above: Performed By: #### H STROPN, BNP, BMP #### [facility] [address] [place] [address] Dr. Trevor Nichols TARGET CELLS 1+ Normal [facility] Comment on above: Performed By: #### H STROPN, BNP, BMP #### [facility] [address] [address] [address] Trevor Nichols TEAR DROP CELLS SLIGHT Normal [facility] Comment on above: Performed By: #### H STROPN, BNP, BMP #### [facility] [address] [address] [address] Trevor Nichols WBC 4.7 103/ul Normal 4.0-11.0 [facility] Comment on above: Performed By: #### H STROPN, BNP, BMP #### [facility] [address] [address] [address] Trevor Nichols CTA CHEST WO W [...] RAY SAWANT Date: 2021-05-15 11:15 Normal [facility] CULTURE BLOODon 05-15-2021 Microscopic examination of blood, culture Culture Observations: No growth at 5 days. Normal [facility] Comment on above: Performed By: #### H CHASITY BNP, BMP #### [facility] [address] [address] [address] Trevor Nichols Covid-19 PCR (CVDTB)on 04-18 SARS-CoV-2 (COVID-19) RNA DEVIN+probe Ql (Unsp spec) Not detected Normal NOT DETECTED [facility] Comment on above: Result Comment: When diagnostic testing is negative, the possibility of a false negative should be considered in the context of a patient's recent exposures and the presence of clinical signs and symptoms consistent with SARS-CoV-2. This test is not yet approved or cleared by the [place] Food and Drug Administration (FDA). This test was developed by [employer], [place], [place]. The performance characteristics of this test were validated by The [facility]. The results are not intended to be used as the sole means for clinical diagnosis or patient management decisions. The [facility] is authorized under Clinical Laboratory Improvement Amendments (CLIA) to perform high- complexity testing. Performed By: #### H CHASITY BNP, BMP #### [facility] [address] [place] [address] Dr. Trevor Nichols FREE T3on 05-15-2021 FREE T3 1.66 pg/mlL Critically low 2.77-5.27 [facility] Comment on above: Performed By: #### T SH, FT3 ####[facility] [address] [address]Dr. Trevor Nichols FREE T4on 05-15-2021 Free T4 [Mass/Vol] 1.06 ng/dL Normal 0.78-2.19 [facility] Comment on above: Performed By: #### F T4 ####[facility] [address] [address]DrJeffery Nichols LACTATE/LACTIC ACIDon 2020 Lactate [Moles/Vol] 1.2 mmol/L Normal 0.7-2.0 [facility] Comment on above: Performed By: #### L ACT ####[facility] [address] [address]Dr. Trevor Nichols Lactate [Moles/Vol] 1.5 mmol/L Normal 0.7-2.0 [facility] Comment on above: Performed By: #### L ACT ####[facility] [address] [address]Dr. Trevor Nichols PROF CHEM 8 (BAS METB)on Anion gap [Moles/Vol] 12.5 mmol/L Normal [facility] Comment on above: Performed By: #### H STROPN, BNP, BMP #### [facility] [address] [address] [address] Trevor Nichols Calcium [Mass/Vol] 8.4 mg/dL Normal 8.4-10.2 [facility] Comment on above: Performed By: #### H STROPN, BNP, BMP #### [facility] [address] [address] [address] rTevor Nichols Chloride [Moles/Vol] 106 mmol/L Normal 98-107 [facility] Comment on above: Performed By: #### H STROPN, BNP, BMP #### [facility] [address] [address] [address] Trevor Nichols CO2 [Moles/Vol] 24.8 mmol/L Normal 22.0-30.0 [facility] Comment on above: Performed By: #### H STROPN, BNP, BMP #### [facility] [address] [address] [address] Trevor Nichols Creatinine [Mass/Vol] 1.37 mg/dL Critically high 0.66-1.25 [facility] Comment on above: Performed By: #### H STROPN, BNP, BMP #### [facility] [address] [address] [address] Trevor Nichols EGFR-AF YEMENI >60 Normal >=60 [facility] Comment on above: Performed By: #### H STROPN, BNP, BMP #### [facility] [address] [address] [address] Trevor Nichols EGFR-NON AF YEMENI 51 mL/min/1.73m2 Critically low >=60 [facility] Comment on above: Performed By: #### H STROPN, BNP, BMP #### [facility] [address] [place] [address] Dr. Trevor Nichols Glucose [Mass/Vol] 114 mg/dL Critically high 74-106 [facility] Comment on above: Performed By: #### H STROPN, BNP, BMP #### [facility] [address] [address] [address] Trevor Nichols Potassium [Moles/Vol] 4.4 mmol/L Normal 3.4-5.0 [facility] Comment on above: Performed By: #### H STROPN, BNP, BMP #### [facility] [address] [place] [address] Dr. Trevor Nichols Sodium [Moles/Vol] 139 mmol/L Normal 137-145 [facility] Comment on above: Performed By: #### H STROPN, BNP, BMP #### [facility] [address] [place] [address] Dr. Trevor Nichols Urea nitrogen [Mass/Vol] 20.0 mg/dL Normal 9.0-20.0 [facility] Comment on above: Performed By: #### H STROPN, BNP, BMP #### [facility] [address] [place] [address] Dr. Trevor Nichols Urea nitrogen/Creatinine [Mass ratio] 14.6 mg/mg Normal [facility] Comment on above: Performed By: #### H STROPN, BNP, BMP #### [facility] [address] [place] [address] Dr. Trevor Nichols TROPONIN, HIGH SENSITIVITYon 05-15-2021 HSTROP 7.1 pg/mL Normal 4.0-42.2 [facility] Comment on above: Result Comment: CUT- OFF POINTS HAVE BEEN ESTABLISHED BASED ON THE FOURTH UNIVERSAL DEFINITIONS OF MYOCARDIAL INFARCTION. THE UPPER REFERENCE LIMIT (URL) OF TROPONIN, DEFINED THE 99TH PERCENTILE OF cTnI DISTRIBUTION IN A REFERENCE POPULATION, HAS BEEN CONFIRMED THE DECISION THRESHOLD FOR [place] DIAGNOSIS. Performed By: #### H STROPN, BNP, BMP #### [facility] [address] [address] [address] Trevor Nichols TSHon 05-15-2021 TSH 1.972 uIU/mL Normal 0.470-4.680 [facility] Comment on above: Performed By: #### T SH, FT3 ####[facility] [address] [id number]. Trevor Nichols TSH RANGE SEE BELOW Normal [facility] Comment on above: Result Comment: <0.3 4 UIU/ml HYPERTHYROID 0.34-5.60 UIU/ml EUTHYROID >5.60 UIU/ml HYPOTHYROID Performed By: #### T SH, FT3 ####[facility] [address] [address]Dr. Trevor Nichols D-DIMERon 05-14-2021 D-DIMER 0.76 mg/L FEU Critically high 0.19-0.50 [facility] Comment on above: Performed By: #### H STROPN, BNP, BMP #### [facility] [address] [place] [address] Dr. Trevor Nichols D-DIMER COMMENTS SEE BELOW Normal [facility] Comment on above: Result Comment: Incr eases [...] By: #### H STROPN, BNP, BMP #### [facility] [address] [address] [address] Trevor Nichols PROF CHEM 8 (BAS METB)on Anion gap [Moles/Vol] 12.0 mmol/L Normal [facility] Comment on above: Performed By: #### H STROPN, BNP, BMP #### [facility] [address] [place] [address] Dr. Trevor Nichols Calcium [Mass/Vol] 8.5 mg/dL Normal 8.4-10.2 [facility] Comment on above: Performed By: #### H STROPN, BNP, BMP #### [facility] [address] [address] [address] Trevor Nichols Chloride [Moles/Vol] 106 mmol/L Normal 98-107 [facility] Comment on above: Performed By: #### H STROPN, BNP, BMP #### [facility] [address] [address] [address] Trevor Nichols CO2 [Moles/Vol] 25.0 mmol/L Normal 22.0-30.0 [facility] Comment on above: Performed By: #### H STROPN, BNP, BMP #### [facility] [address] [place] [address] Dr. Trevor Nichols Creatinine [Mass/Vol] 1.61 mg/dL Critically high 0.66-1.25 [facility] Comment on above: Performed By: #### H STROPN, BNP, BMP #### [facility] [address] [place] [address] Dr. Trevor Nichols EGFR-AF YEMENI 51 mL/min/1.73m2 Critically low >=60 [facility] Comment on above: Performed By: #### H STROPN, BNP, BMP #### [facility] [address] [place] [address] Dr. Trevor Nichols EGFR-NON AF YEMENI 42 mL/min/1.73m2 Critically low >=60 [facility] Comment on above: Performed By: #### H STROPN, BNP, BMP #### [facility] [address] [place] [address] Dr. Trevor Nichols Glucose [Mass/Vol] 115 mg/dL Critically high 74-106 [facility] Comment on above: Performed By: #### H STROPN, BNP, BMP #### [facility] [address] [place] [address] Dr. Trevor Nichols Potassium [Moles/Vol] 4.0 mmol/L Normal 3.4-5.0 [facility] Comment on above: Performed By: #### H STROPN, BNP, BMP #### [facility] [address] [address] [address] Trevor Nichols Sodium [Moles/Vol] 139 mmol/L Normal 137-145 [facility] Comment on above: Performed By: #### H STROPN, BNP, BMP #### [facility] [address] [address] [address] Trevor Nichols Urea nitrogen [Mass/Vol] 20.0 mg/dL Normal 9.0-20.0 [facility] Comment on above: Performed By: #### H STROPN, BNP, BMP #### [facility] [address] [address] [address] Trevor Nichols Urea nitrogen/Creatinine [Mass ratio] 12.4 mg/mg Normal [facility] Comment on above: Performed By: #### H STROPN, BNP, BMP #### [facility] [address] [address] [address] Trevor Nichols PROF CHEM 8 (BAS METB)on Anion gap [Moles/Vol] 19.5 mmol/L Normal [facility] Comment on above: Performed By: #### B MP ####[facility] [address] [address]Dr. Trevor Nichols Calcium [Mass/Vol] 9.1 mg/dL Normal 8.4-10.2 [facility] Comment on above: Performed By: #### B MP ####[facility] [address] [address]DrJeffery Nichols Chloride [Moles/Vol] 104 mmol/L Normal 98-107 [facility] Comment on above: Performed By: #### B MP ####[facility] [address] [id number]. Trevor Nichols CO2 [Moles/Vol] 19.6 mmol/L Critically low 22.0-30.0 [facility] Comment on above: Performed By: #### B MP ####[facility] [address] [address]DrJeffery Nichols Creatinine [Mass/Vol] 1.69 mg/dL Critically high 0.66-1.25 [facility] Comment on above: Performed By: #### B MP ####[facility] [address] [address]Dr. Trevor Nichols EGFR-AF YEMENI 48 mL/min/1.73m2 Critically low >=60 [facility] Comment on above: Performed By: #### B MP ####[facility] [address] [place], [place] [address]Dr. Trevor Nichols EGFR-NON AF YEMENI 40 mL/min/1.73m2 Critically low >=60 [facility] Comment on above: Performed By: #### B MP ####[facility] [address] [place], [place] [address]Dr. Trevor Nichols Glucose [Mass/Vol] 95 mg/dL Normal 74-106 [facility] Comment on above: Performed By: #### B MP ####[facility] [address] [place], [place] [address]Dr. Trevor Nichols Potassium [Moles/Vol] 5.4 mmol/L Critically high 3.4-5.0 [facility] Comment on above: Performed By: #### B MP ####[facility] [address] [place], [place] [address]Dr. Trevor Nichols Sodium [Moles/Vol] 138 mmol/L Normal 137-145 [facility] Comment on above: Performed By: #### B MP ####[facility] [address] [place], [place] [address]Dr. Trevor Nichols Urea nitrogen [Mass/Vol] 26.0 mg/dL Critically high 9.0-20.0 [facility] Comment on above: Performed By: #### B MP ####[facility] [address] [place], [place] [address]Dr. Trevor Nichols Urea nitrogen/Creatinine [Mass ratio] 15.4 mg/mg Normal [facility] Comment on above: Performed By: #### B MP ####[facility] [address] [place], [place] [address]Dr. Trevor Nichols BNPon 09-13-2021 Natriuretic peptide B (Bld) [Mass/Vol] 421.0 pg/mL Normal <=900.0 [facility] Comment on above: Performed By: #### B ROLLED HAM LACER, MG ####[facility] [address] [place] [address] Rose Marie CBC W MANUAL DIFFon 04-29-20 21 ATYPICAL LYMPH # 0.19 103/ul Normal [facility] Comment on above: Performed By: #### Brodie HEMPHILL ####[facility] [address] [place] [address] Rose Marie#### PERSMR ####[facility] [address] [place], [place] [address]Dr. Yilan Nichols ATYPICAL LYMPH % 4 % Normal [facility] Comment on above: Performed By: #### Brodie HEMPHILL ####[facility] X[address] [place] [address] Rose Marie#### PERSMR ####[facility] [address] [place], [place] [address]Dr. Yilan Nichols BAND # 0.2 103/ul Normal 0.0-0.3 [facility] Comment on above: Performed By: #### Brodie HEMPHILL ####[facility] [address] [place] [address] Rose Marie#### PERSMR ####[facility] [address] [place], [place] [address]Dr. Yilan Nichols BAND % 5 % Normal 0-5 [facility] Comment on above: Performed By: #### Brodie HEMPHILL ####[facility] [address] [place] [address] Rose Marie#### PERSMR ####[facility] R[address] [place], [place] [address]Dr. Yilan Nichols BASOM # 0.05 103/ul Normal 0.00-0.10 [facility] Comment on above: Performed By: #### Brodie HEMPHILL ####[facility] [address] [place] [address] Rose Marie#### PERSMR ####[facility] [address] [address]Dr. Trevor Nichols BASOM % 1.0 % Normal 0.2-2.0 [facility] Comment on above: Performed By: #### C JOBY ####[facility] [address] [place] [address] Rose Marie#### PERSMR ####[facility] [address] [place], [place] [address]Dr. Trevor Nichols BLAST # Normal [facility] Comment on above: Performed By: #### C JOBY ####[facility] [address] [place] [address] Rose Marie#### PERSMR ####[facility] Jrqbfmsubt[address] [place], [place] [address]Dr. Trevor Nichols BLAST % Normal [facility] Comment on above: Performed By: #### Brodie HEMPHILL ####[facility] [address] [place] [address] Rose Marie#### PERSMR ####[facility] [address]zed[address]scx[address] [place], [place] [address]Dr. Trevor Nichols CORRECTED WBC Normal 4.0-11.0 [facility] Comment on above: Performed By: #### Brodie HEMPHILL ####[facility] [address] [place] [address] Rose Marie#### PERSMR ####[facility] [address] [place], [place] [address]Dr. Trevor Nichols EOS # 0.00 103/ul Normal 0.00-0.70 [facility] Comment on above: Performed By: #### C JOBY ####[facility] [address] [place] [address] Rose Marie#### PERSMR ####[facility] [address]su[address]edr[address] [place], [place] [address]Dr. Trevor Nichols EOS% 0.0 % Critically low 0.9-7.0 [facility] Comment on above: Performed By: #### Brodie HEMPHILL ####[facility] [address] [place] [address] Rose Marie#### PERSMR ####[facility] [address] [id number]. Trevor Nichols HCT 35.7 % Critically low 42.0-54.0 [facility] Comment on above: Performed By: #### Brodie HEMPHILL ####[facility] [address] [address]Gerken Rose Marie#### PERSMR ####[facility] [address] [id number]. Trevor Nichols HGB 11.7 g/dl Critically low 14.0-18.0 [facility] Comment on above: Performed By: #### Brodie HEMPHILL ####[facility] [address] [place] [address] Rose Marie#### PERSMR ####[facility] [address] [place], [place] [address]Dr. Trevor Nichols LYMPHM # 0.72 103/ul Critically low 1.20-3.80 [facility] Comment on above: Performed By: #### Brodie HEMPHILL ####[facility] Or[address] [place] [address] Rose Marie#### PERSMR ####[facility] [address] [place], [place] [address]Dr. Trevor Nichols LYMPHM% 15.0 % Critically low 20.5-60.0 [facility] Comment on above: Performed By: #### Brodie HEMPHILL ####[facility] [address]uns[address]cp[address] [place] [address] Rose Marie#### PERSMR ####[facility] [address] [place], [place] [address]Dr. Trevor Nichols MCH 34.4 pg Critically high 25.9-34.0 [facility] Comment on above: Performed By: #### C JOBY ####[facility] [address] [place], [place] [address] Rose Marie#### PERSMR ####[facility] [address]be[address] [place], [place] [address]Dr. Trevor Nichols MCHC 32.8 g/dl Normal 29.9-35.2 [facility] Comment on above: Performed By: #### Brodie HEMPHILL ####[facility] [address] [place] [address] Rose Marie#### PERSMR ####[facility] [address] [address]Dr. Trevor Nichols MCV 105.0 fL Critically high 80.0-94.0 [facility] Comment on above: Performed By: #### Brodie HEMPHILL ####[facility] [address] [place] [address] Rose Marie#### PERSMR ####[facility] [address] [place], [place] [address]Dr. Trevor Nichols METAMYELOCYTE # Normal [facility] Comment on above: Performed By: #### Brodie HEMPHILL ####[facility] Rd[address]clum[address] [place] [address] Rose Marie#### PERSMR ####[facility] [address] [place], [place] [address]Dr. Trevor Nichols METAMYELOCYTE % Normal [facility] Comment on above: Performed By: #### Brodie HEMPHILL ####[facility] [address] [place] [address] Rose Marie#### PERSMR ####[facility] [address] [place], [place] [address]Dr. Trevor Nichols MONOM# 1.25 103/ul Critically high 0.30-0.80 [facility] Comment on above: Performed By: #### Brodie HEMPHILL ####[facility] [address] [place] [address] Rose Marie#### PERSMR ####[facility] [address] [place], [place] [address]Dr. Trevor Nichols MONOM% 26.0 % Critically high 1.7-12.0 [facility] Comment on above: Performed By: #### Brodie HEMPHILL ####[facility] [address]xy[address] [place] [address] Rose Marie#### PERSMR ####[facility] [address] [id number]. Trevor Nichols MPV 10.5 fL Normal 9.5-13.5 [facility] Comment on above: Performed By: #### Brodie HEMPHILL ####[facility] [address] [address]Gerken Rose Marie#### PERSMR ####[facility] [address] [id number]. Trevor Nichols MYELOCYTE # Normal [facility] Comment on above: Performed By: #### Brodie HEMPHILL ####[facility] Cjaztlwkqa80[address] [place] [address]Gerken [place]#### PERSMR ####[facility] Qqvnorzvrv[address] [place], [place] [id number]. Trevor Nichols MYELOCYTE % Normal [facility] Comment on above: Performed By: #### Brodie HEMPHILL ####[facility] Nygjhhwxkb9442 [address] [place]#### PERSMR ####[facility] Hxwhpsbodh[address] [place], [place] [id number]. Trevor Nichols NRBC Normal [facility] Comment on above: Performed By: #### Brodie HEMPHILL ####[facility] Xsktqymfjc9353 [address] [place]#### PERSMR ####[facility] Vplzytwzkv8913 [place] [id number]. Trevor Nichols PATH REVIEW INDICATED Normal [facility] Comment on above: Performed By: #### Brodie HEMPHILL ####[facility] Strjhyoziq68[address] [place] [address]Gerken [place]#### PERSMR ####[facility] Uwatyiemwx5602 [place] [address]Dr. Trevor Nichols PLT 158 103/ul Normal 150-450 [facility] Comment on above: Performed By: #### Brodie HEMPHILL ####[facility] Cnmxlhmaqw5605 [place] [address]Gerken [place]#### PERSMR ####[facility] Nhnxcvugls1681 [place] [address]Dr. Trevor Nichols RBC 3.40 106/ul Critically low 4.70-6.10 [facility] Comment on above: Performed By: #### Brodie HEMPHILL ####[facility] Qhgrzhsoiv14[address] [place]#### PERSMR ####[facility] Fwpkvrbkxg0680 [place] [address]Dr. Trevor Nichols RDW 15.6 % Critically high 11.0-15.0 [facility] Comment on above: Performed By: #### C JOBY ####[facility] Thjefq[address] [place] [address] [place]#### PERSMR ####[facility] Nehwncdvpg[address] [place], [place] [address]Dr. Trevor Nichols SEG # 2.35 103/ul Normal 1.40-6.50 [facility] Comment on above: Performed By: #### Brodie HEMPHILL ####[facility] Ydxocswsmz[address] [place] [address] [place]#### PERSMR ####[facility] Sachgziyrx[address] [place], [place] [address]Dr. Trevor Nichols SEG % 49.0 % Normal 43.0-75.0 [facility] Comment on above: Performed By: #### Brodie HEMPHILL ####[facility] X[address]ebet[address] [place] [address] [place]#### PERSMR ####[facility] Yyfupawsqn[address] [place], [place] [address]Dr. Trevor Nichols WBC 4.8 103/ul Normal 4.0-11.0 [facility] Comment on above: Performed By: #### C JOBY ####[facility] Zlph[address]dlc[address] [place] [address] [place]#### PERSMR ####[facility] Z[address]ch[address] [place], [place] [address]Dr. Trevor Nichols MAGNESIUMon 04-29-2021 Magnesium [Mass/Vol] 2.4 mg/dL Critically high 1.6-2.3 [facility] Comment on above: Performed By: #### B ROLLED HAM LACER, MG ####[facility] Drnieullxl5703 [address] [place] PERIPHERAL SMEARon Pathologist Cyto stain Nom (Cvx/Vag) [ID] DR. BHARTI PARDO Normal [facility] Comment on above: Result Comment: Kate pheral blood smear reveals isolated monocytosis with unremarkable morphology. The neutrophils and platelets are morphologically unremarkable. No atypical lymphocytes or blasts are noted. A reactive process is favored. Clinical correlation is suggested. Dr Bharti Pardo 05/01/2021 Performed By: #### C JOBY ####[facility] Ok[address] [place] [address] [place]#### PERSMR ####[facility] Qybnqhv[address] [place], [place] [address]DrJeffery Nichols VITAMIN D 25 OHon 04-29-2021 VIT D 25-OH 71.4 ng/mL Normal [facility] Comment on above: Performed By: #### V ITAD ####[facility] D[address] [place] [address] [place] VIT D RANGES SEE BELOW Normal [facility] Comment on above: Result Comment: <20 ng/mL Vit D deficient 20 - <30 ng/mL Vit D insufficient 30 - 100 ng/mL Vit D sufficient >100 ng/mL Potential Toxicity Performed By: #### V ITAD ####[facility] Zyq[address] [place] [address] [place] POC GLUCOSE LABon 06-30-2020 Glucose [Mass/Vol] 108 mg/dL High 70-100 The [facility] Comment on above: Performed By: #### 4 1000, 26650 #### [facility] [address] [place] [address], [place] Glucose [Mass/Vol] 165 mg/dL High 70-100 The [facility] Comment on above: Performed By: #### 4 1000, 34649 #### [facility] [address] [place] [address], [place] C REACTIVE PROTEINon 020 CRP [Mass/Vol] 27.8 mg/L High 0.0-7.0 The [facility] Comment on above: Order Comment: No: D o not add to previous draw Performed By: #### 4 1000, 42339, 91175 #### [facility] [address] CBC COMPLETE BLOOD COUNTon 08-29-2019 Erythrocyte distribution width (RBC) [Ratio] 14.3 % Normal 11.5-15.0 The [facility] Comment on above: Order Comment: No: D o not add to previous draw Performed By: #### 4 1000, 85371 #### [facility] [address] [place] [address], [facility] Hematocrit (Bld) [Volume fraction] 34.7 % Low 39.0-50.0 The [facility] Comment on above: Order Comment: No: D o not add to previous draw Performed By: #### 4 1000, 45532 #### [facility] [address] [place] [address], [facility] Hemoglobin (Bld) [Mass/Vol] 11.6 g/dL Low 13.0-17.0 The [facility] Comment on above: Order Comment: No: D o not add to previous draw Performed By: #### 4 1000, 82546 #### [facility] [address] [place] [address], [facility] MCH (RBC) [Entitic mass] 35.5 pg High 27.0-33.0 The [facility] Comment on above: Order Comment: No: D o not add to previous draw Performed By: #### 4 1000, 13407 #### [facility] [address] [place] [address], [facility] MCHC (RBC) [Mass/Vol] 33.4 g/dL Normal 32.0-35.0 The [facility] Comment on above: Order Comment: No: D o not add to previous draw Performed By: #### 4 1000, 65461 #### [facility] [address] [place] [address], [facility] MCV (RBC) [Entitic vol] 106.1 fL High 82.0-98.0 The [facility] Comment on above: Order Comment: No: D o not add to previous draw Performed By: #### 4 1000, 35604 #### [facility] [address] [place] [address], [facility] Nucleated RBC/100 WBC (Bld) [Ratio] 0 % Normal 0-0 The [facility] Comment on above: Order Comment: No: D o not add to previous draw Performed By: #### 4 1000, 36327 #### [facility] [address] [facility] [address], [facility] PLAT CNT 150 10*3/uL Normal 150-400 The [facility] Comment on above: Order Comment: No: D o not add to previous draw Performed By: #### 4 1000, 01457 #### [facility] [address] [facility] [address], [facility] RBC (Bld) [#/Vol] 3.27 10*6/uL Low 4.20-5.70 The [facility] Comment on above: Order Comment: No: D o not add to previous draw Performed By: #### 4 1000, 26888 #### [facility] [address] [place] [address], [facility] WBC (Bld) [#/Vol] 5.86 10*3/uL Normal 4.00-10.60 The [facility] Comment on above: Order Comment: No: D o not add to previous draw Performed By: #### 4 1000, 96081 #### [facility] [address] [facility]. [address] CPKon 06-29-2020 CK [Catalytic activity/Vol] 45 U/L Normal 30-223 The [facility] Comment on above: Order Comment: Unkno wn Performed By: #### 9 9909, 07517, 42897, 54842 #### [place] [address], [facility] CT BRAIN WO CONTRASTon 06-29 CT BRAIN WO CONTRAST [facility] Department of Radiology [address] [place] [id number] ===== Patient Name: CHIKI JUAREZ : 1945 Sex: M Age: Race: White Pt. Location: [id number] Patient Status: I Ordered Date: 06/29/2020 9:20:00 AM Completed Date: 06/29/2020 07:10 PM Requesting Provider: RAYSA LEDESMA Attending Provider: MYA BHAKTA Report Copy To: Signs & Symptoms: Stroke(CVA) History: See Comments Comments: CVA Exam: CT BRAIN WO CONTRAST ===== CT BRAIN WO CONTRAST 06/29/2020 7:10 PM [...] region. Electronically signed: Aleta Armas. Transcribed by: [email or web address], User Resident: Electronically Signed by: ALETA ARMAS @ 06/29/2020 07:16 PM Normal [facility] Comment on above: Order Comment: No: D o not add to previous draw D DIMER TESTon 06-29-2020 D-DIMER TEST 1.44 mcg/mL FEU High 0.27-0.49 The [facility] Comment on above: Order Comment: No: D o not add to previous draw Result Comment: D-Di fide values of less than 0.50 ug/ml (FEU) are considered to be a negative predictor of thrombosis. However, the D-Dimer result should be used in conjunction with pretest probability and should not be used alone to diagnose a thrombotic event. Performed By: #### 4 1000, 24407, 43309 #### [facility] [address] FERRITINon 06-29-2020 Ferritin [Mass/Vol] 271 ng/mL Normal 24-336 The [facility] Comment on above: Order Comment: Unkno wn Performed By: #### 9 9909, 23263, 30803, 45834 #### [facility] [address] [place] [address], [facility] LDH BLOODon 06-29-2020 LDH 148 Units/L Normal 140-271 The [facility] Comment on above: Order Comment: Unkno wn Performed By: #### 9 9909, 29679, 43896, 25268 #### [facility] [address] [facility]. [address] LIPID PROFILEon 06-29-2020 Cholesterol [Mass/Vol] 176 mg/dL Normal 120-200 The [facility] Comment on above: Order Comment: No: D o not add to previous draw Result Comment: CHOL ESTEROL REFERENCE RANGE: 20 YEARS AND OLDER CARDIOVASCULAR RISK Less than 200 mg/dl Low Risk 200 to 239 mg/dl Borderline Risk 240 mg/dl and greater High Risk Performed By: #### 4 1000, 89157, 96575 #### [facility] [address] [place] [address], [facility] Cholesterol in HDL [Mass/Vol] 39 mg/dL Normal 23-92 The [facility] Comment on above: Order Comment: No: D o not add to previous draw Result Comment: Slig ht variation in normal range could be due to gender and/or age. HDL CHOLESTEROL REFERENCE RANGE: 20 years and older Cardiovascular Risk > or =60 mg/dL Desirable 40 TO 59 mg/dL Low Risk <40 mg/dL High Risk Performed By: #### 4 1000, 47698, 64456 #### [facility] [address] [place] [address], [facility] Cholesterol in LDL [Mass/Vol] 100 mg/dL Normal 0-130 The [facility] Comment on above: Order Comment: No: D o not add to previous draw Result Comment: LDL IS A CALCULATION LDL IS ONLY VALID IF THE TRIG IS LESS THAN 400. Performed By: #### 4 1000, 24093, 53965 #### [facility] [address] [place] [address], [facility] Cholesterol.total/C holesterol in HDL [Mass ratio] 4.5 {ratio} Normal 0.0-4.5 The [facility] Comment on above: Order Comment: No: D o not add to previous draw Performed By: #### 4 1000, 98938, 72281 #### [facility] [address] [facility] [place] [address], [facility] NON-HDL CHOLESTEROL 137 mg/dL Normal The [facility] Comment on above: Order Comment: No: D o not add to previous draw Performed By: #### 4 1000, 75602, 13792 #### [facility] [address] [place] [address], [place] Triglyceride [Mass/Vol] 187 mg/dL High 40-149 The [facility] Comment on above: Order Comment: No: D o not add to previous draw Result Comment: TRIG LYCERIDE REFERENCE RANGE: 20 YEARS AND OLDER CARDIOVASCULAR RISK LESS THAN 150 mg/dl LOW RISK 150 TO 199 mg/dl BORDERLINE RISK 200 mg/dl AND GREATER HIGH RISK Performed By: #### 4 1000, 06212, 17458 #### [facility] [address] [place] [address], [facility] VLDL CHOL 37 mg/dL Normal 0-40 The [facility] Comment on above: Order Comment: No: D o not add to previous draw Performed By: #### 4 1000, 91719, 82015 #### [facility] [address] [place] [address], [facility] LIVER BATTERYon 06-29-2020 Albumin [Mass/Vol] 3.4 g/dL Low 3.5-5.7 The [facility] Comment on above: Order Comment: Unkno wn Performed By: #### 9 9909, 47486, 31662, 22735 #### [facility] [address] [facility] [place] [address], [facility] ALKALINE PHOSPH 60 IU/L Normal 34-104 The [facility] Comment on above: Order Comment: Unkno wn Performed By: #### 9 9909, 85869, 21589, 39143 #### [facility] [address] [place] [address], [facility] ALT [Catalytic activity/Vol] 8 U/L Normal 7-52 The [facility] Comment on above: Order Comment: Unkno wn Performed By: #### 9 9909, 72549, 94561, 42974 #### [facility] [address] [place] [address], [place] AST [Catalytic activity/Vol] 11 U/L Low 13-39 The [facility] Comment on above: Order Comment: Unkno wn Performed By: #### 9 9909, 41002, 49005, 56140 #### [facility] [address] [place] [address], [place] Bilirubin [Mass/Vol] 0.5 mg/dL Normal 0.3-1.0 The [facility] Comment on above: Order Comment: Unkno wn Performed By: #### 9 9909, 67227, 99988, 14228 #### [facility] [address] [place] [address], [place] Bilirubin.direct [Mass/Vol] 0.1 mg/dL Normal 0.0-0.2 The [facility] Comment on above: Order Comment: Unkno wn Performed By: #### 9 9909, 33978, 39626, 74258 #### [facility] [address] [place] [address], [place] Protein [Mass/Vol] 5.8 g/dL Low 6.0-8.3 The [facility] Comment on above: Order Comment: Unkno wn Performed By: #### 9 9909, 99725, 12004, 26064 #### [facility] [address] [place] [address], [place] POC GLUCOSE LABon 06-29-2020 Glucose [Mass/Vol] 112 mg/dL High 70-100 The [facility] Comment on above: Performed By: #### 4 1000, 26397 #### [facility] [address] [place] [address], [place] Glucose [Mass/Vol] 105 mg/dL High 70-100 The [facility] Comment on above: Performed By: #### 4 1000, 15593 #### [facility] [address] [place] [address], [place] Glucose [Mass/Vol] 94 mg/dL Normal 70-100 The [facility] Comment on above: Performed By: #### 4 1000, 55137, 29492 #### [facility] [address] [place] [address], [place] Glucose [Mass/Vol] 121 mg/dL High 70-100 The [facility] Comment on above: Performed By: #### 4 1000, 84392 #### [facility] [address] PORTABLE CHEST 1 VIEWon 06-17 PORTABLE CHEST 1 VIEW [facility] Department of Radiology [address] [place] [address] ===== Patient Name: CHIKI JUAREZ : 1945 Sex: M Age: Race: White Pt. Location: [id number] Patient Status: I Ordered Date: 06/29/2020 5:45:00 PM Completed Date: 06/29/2020 07:48 PM Requesting Provider: DAVIE HAMMOND Attending Provider: MYA BHAKTA Report Copy To: Signs & Symptoms: Post OP History: Comments: Check Pacemaker/AICD Lead Position Exam: PORTABLE CHEST 1 VIEW ===== PORTABLE CHEST 1 VIEW 06/29/2020 7:48 PM [...] placement. Electronically signed: Aleta Armas. Transcribed by: [email or web address], User Resident: Electronically Signed by: ALETA ARMAS @ 06/29/2020 08:15 PM Normal The [facility] Comment on above: Order Comment: No: D o not add to previous draw BASIC METABOLIC PANELon 11- Calcium [Mass/Vol] 8.8 mg/dL Normal 8.6-10.3 The [facility] Comment on above: Order Comment: No: D o not add to previous draw Performed By: #### 4 1000, 67880, 55036 #### [facility] [address] [place] [address], [place] Chloride [Moles/Vol] 102 mmol/L Normal 98-107 The [facility] Comment on above: Order Comment: No: D o not add to previous draw Performed By: #### 4 1000, 83979, 53668 #### [facility] [address] [place] [address], [place] CO2 [Moles/Vol] 24 mmol/L Normal 21-31 The [facility] Comment on above: Order Comment: No: D o not add to previous draw Performed By: #### 4 1000, , 82447 #### [facility] [address] [place] [address], [place] Creatinine [Mass/Vol] 1.31 mg/dL High 0.70-1.30 The [facility] Comment on above: Order Comment: No: D o not add to previous draw Performed By: #### 4 1000, 02726, 80923 #### [facility] [address] [place] [address], [place] GFR/1.73 sq M predicted among blacks MDRD (S/P/Bld) [Vol rate/Area] mL/min/{1.73_m2} Normal >60 The [facility] Comment on above: Order Comment: No: D o not add to previous draw Result Comment: Calc ulation may not be valid for patients over 70 years Performed By: #### 4 1000, 01228, 45354 #### [facility] [address] [place] [address], [place] GFR/1.73 sq M predicted among non-blacks MDRD (S/P/Bld) [Vol rate/Area] 54 ml/min/1.73sq m Abnormal >60 The [facility] Comment on above: Order Comment: No: D o not add to previous draw Result Comment: Calc ulation may not be valid for patients over 70 years Performed By: #### 4 1000, , 60648 #### [facility] [address] [place] [address], [place] Glucose [Mass/Vol] 96 mg/dL Normal 70-100 The [facility] Comment on above: Order Comment: No: D o not add to previous draw Performed By: #### 4 1000, , 08977 #### [facility] [address] [place] [address], [place] Potassium [Moles/Vol] 4.3 mmol/L Normal 3.5-5.1 The [facility] Comment on above: Order Comment: No: D o not add to previous draw Performed By: #### 4 1000, , 40838 #### [facility] [address] [place] [address], [place] Sodium [Moles/Vol] 133 mmol/L Low 136-145 The [facility] Comment on above: Order Comment: No: D o not add to previous draw Performed By: #### 4 1000, , 31093 #### [facility] [address] [place] [address], [place] Urea nitrogen [Mass/Vol] 26 mg/dL High 7-25 The [facility] Comment on above: Order Comment: No: D o not add to previous draw Performed By: #### 4 1000, , 81804 #### [facility] [address] [place] [address], [place] CBC COMPLETE BLOOD COUNTon 08-28-2019 Erythrocyte distribution width (RBC) [Ratio] 14.4 % Normal 11.5-15.0 The [facility] Comment on above: Order Comment: No: D o not add to previous draw Performed By: #### 4 1000, , 09584 #### [facility] [address] [place] [address], [place] Hematocrit (Bld) [Volume fraction] 35.2 % Low 39.0-50.0 The [facility] Comment on above: Order Comment: No: D o not add to previous draw Performed By: #### 4 1000, , 81470 #### [facility] [address] [place] [address], [facility] Hemoglobin (Bld) [Mass/Vol] 11.8 g/dL Low 13.0-17.0 The [facility] Comment on above: Order Comment: No: D o not add to previous draw Performed By: #### 4 1000, , 06681 #### [facility] [address] [place] [address], [facility] MCH (RBC) [Entitic mass] 35.5 pg High 27.0-33.0 The [facility] Comment on above: Order Comment: No: D o not add to previous draw Performed By: #### 4 1000, , 59351 #### [facility] [address] [facility] [place] [address], [facility] MCHC (RBC) [Mass/Vol] 33.5 g/dL Normal 32.0-35.0 The [facility] Comment on above: Order Comment: No: D o not add to previous draw Performed By: #### 4 1000, , 08835 #### [facility] [address] [facility] [facility] [place] [address], [facility] MCV (RBC) [Entitic vol] 106.0 fL High 82.0-98.0 The [facility] Comment on above: Order Comment: No: D o not add to previous draw Performed By: #### 4 1000, , 61581 #### [facility] [address] [place] [address], [facility] Nucleated RBC/100 WBC (Bld) [Ratio] 0 % Normal 0-0 The [facility] Comment on above: Order Comment: No: D o not add to previous draw Performed By: #### 4 1000, 43604, 55413 #### [facility] [address] [facility] [place] [address], [facility] PLAT CNT 158 10*3/uL Normal 150-400 The [facility] Comment on above: Order Comment: No: D o not add to previous draw Performed By: #### 4 1000, 52135, 03060 #### [facility] [address] [facility] [facility] [place] [address], [facility] RBC (Bld) [#/Vol] 3.32 10*6/uL Low 4.20-5.70 The [facility] Comment on above: Order Comment: No: D o not add to previous draw Performed By: #### 4 1000, 02334, 37204 #### [facility] [address] [facility] [place] [address], [facility] WBC (Bld) [#/Vol] 7.25 10*3/uL Normal 4.00-10.60 The [facility] Comment on above: Order Comment: No: D o not add to previous draw Performed By: #### 4 1000, 49323, 63647 #### [facility] [address] [facility] Cardiovascular Lab Reporton 06-28-2020 Cardiovascular Lab Report [facility] Patient Name: Chiki Juarez [facility] MR #: [id number] Physician: Connor Carrera MD Department of Service Date: 06/28/2020 Medicine Birthdate: 1945 Division of Room #: 3CD 820029 Cardiology Adult Cardiovascular Services [place] [address] Cardiovascular Laboratory Report DUAL CHAMBER PACEMAKER IMPLANT PROCEDURE NOTE DATE OF PROCEDURE: 06/28/2020 PERFORMING PHYSICIAN: Dr. Connor Carrera CONSENT: Patient LOCATION: EP Lab PROCEDURE PERFORMED: 1. Implantation of pacemaker ([employer]) 2. Ultrasound guided venous access INDICATIONS: [...] using modified seldinger technique using a 5 Finnish micro-puncture needle on two occasions and 0.24 [...] was made enough for the device. 6 [place] Safesheaths were placed over the wire. An active fixation [employer] pacing lead was then delivered through the 6Fsheath to the right ventricle. After confirmation of lead position on orthogonal views (PARK and AZERBAIJANI) to confirm septal position, the screw was activated, and the lead was placed in the right ventricular mid cavity towards the septum. After confirmation of good sensing parameters, injury pattern and pacing thresholds, 10V pacing was done and no diaphragmatic stimulation was noted. It was then secured in the pocket using three 1-0 Silk sutures. Then an active fixation [employer] lead was delivered through the 6Fsheath to the right atrial appendage. After confirmation of lead position on orthogonal views (PARK and AZERBAIJANI), the screw was activated. After confirmation of [...] immediate procedural complications were noted. Device info: Volusion Accolade MRI EL Model# L331 Serial# [id number] RA lead: Model# INGEVITY 7740 (45cms) Serial# [id number] Sensin.7mV Threshold: 0.9V@0.4ms Impedance: 666Ohms RV lead: Model# INGEVITY 7841(52cms) Serial# [id number] Sensin.1mV Threshold: 0.4V@0.4ms Impedance: 746Ohms POST PROCEDURE [...] Carrera MD Date Trans: 06/28/2020 03:33 P/alondra [id number] cc: Will Sherwood M.D. [address] [place] [id number] Normal [facility] MAGNESIUM BLOODon 06-28-2020 Magnesium [Mass/Vol] 2.1 mg/dL Normal 1.9-2.7 [facility] Comment on above: Order Comment: No: D o not add to previous draw Performed By: #### 4 1000, 44860, 93136 #### [facility] [address] [place] [address], [place] PHOSPHORUS BLOODon 0 Phosphate [Mass/Vol] 3.7 mg/dL Normal 2.5-5.0 [facility] Comment on above: Order Comment: No: D o not add to previous draw Performed By: #### 4 1000, 07590, 79156 #### [facility] [address] [place] [address], [place] POC GLUCOSE LABon 06-28-2020 Glucose [Mass/Vol] 93 mg/dL Normal 70-100 [facility] Comment on above: Performed By: #### 4 1000, 72603 #### [facility] [address] [place] [address], [place] Glucose [Mass/Vol] 90 mg/dL Normal 70-100 [facility] Comment on above: Performed By: #### 4 1000, 01735 #### [facility] [address] [place] [address], [place] Glucose [Mass/Vol] 97 mg/dL Normal 70-100 [facility] Comment on above: Performed By: #### 4 1000, 48790 #### [facility] [address] [place] [address], [place] Glucose [Mass/Vol] 99 mg/dL Normal 70-100 [facility] Comment on above: Performed By: #### 4 1000, 91707 #### [facility] [address] [place] [address], [place] APTTon 06-27-2020 aPTT Coag (Bld) [Time] 34.8 s Normal 25.0-35.0 [facility] Comment on above: Order Comment: No: [...] THIS PURPOSE. Performed By: #### 4 1000, 44504 #### [facility] [address] [place] [address], [facility] BASIC METABOLIC PANELon 11-1 Calcium [Mass/Vol] 9.1 mg/dL Normal 8.6-10.3 [facility] Comment on above: Order Comment: No: D o not add to previous draw Performed By: #### 4 1000, 59143, 88828 #### [facility] [address] [place] [id number], [facility] Chloride [Moles/Vol] 104 mmol/L Normal 98-107 [facility] Comment on above: Order Comment: No: D o not add to previous draw Performed By: #### 4 1000, 61873, 44236 #### [facility] [address] [place] [address], [facility] CO2 [Moles/Vol] 23 mmol/L Normal 21-31 [facility] Comment on above: Order Comment: No: D o not add to previous draw Performed By: #### 4 1000, 52968, 70102 #### [facility] [address] [place] [address], [facility] Creatinine [Mass/Vol] 1.21 mg/dL Normal 0.70-1.30 [facility] Comment on above: Order Comment: No: D o not add to previous draw Performed By: #### 4 1000, 97204, 97736 #### [facility] [address] [place] [address], [facility] GFR/1.73 sq M predicted among blacks MDRD (S/P/Bld) [Vol rate/Area] mL/min/{1.73_m2} Normal >60 [facility] Comment on above: Order Comment: No: D o not add to previous draw Result Comment: Calc ulation may not be valid for patients over 70 years Performed By: #### 4 1000, , 24080 #### [facility] [address] [place] [address], [place] GFR/1.73 sq M predicted among non-blacks MDRD (S/P/Bld) [Vol rate/Area] 59 ml/min/1.73sq m Abnormal >60 [facility] Comment on above: Order Comment: No: D o not add to previous draw Result Comment: Calc ulation may not be valid for patients over 70 years Performed By: #### 4 1000, , 66579 #### [facility] [address] [place] [address], [place] Glucose [Mass/Vol] 132 mg/dL High 70-100 [facility] Comment on above: Order Comment: No: D o not add to previous draw Performed By: #### 4 1000, , 08624 #### [facility] [address] [place] [address], [place] Potassium [Moles/Vol] 5.2 mmol/L High 3.5-5.1 [facility] Comment on above: Order Comment: No: D o not add to previous draw Performed By: #### 4 1000, , 38487 #### [facility] [address] [place] [address], [place] Sodium [Moles/Vol] 135 mmol/L Low 136-145 [facility] Comment on above: Order Comment: No: D o not add to previous draw Performed By: #### 4 1000, , 43008 #### [facility] [address] [place] [address], [place] Urea nitrogen [Mass/Vol] 21 mg/dL Normal 7-25 [facility] Comment on above: Order Comment: No: D o not add to previous draw Performed By: #### 4 1000, , 03335 #### [facility] [address] [place] [address], [place] C REACTIVE PROTEINon 020 CRP [Mass/Vol] 40.5 mg/L High 0.0-7.0 [facility] Comment on above: Order Comment: No: D o not add to previous draw Performed By: #### 4 1000, 43435, 93139 #### [facility] [address] [facility] [facility] [place] [address], [facility] CBC W/DIFFon 06-27-2020 ABS BASOPHILS 0.0 10*3/uL Normal 0.0-0.2 [facility] Comment on above: Order Comment: No: D o not add to previous draw Performed By: #### 4 1000, 34885 #### [facility] [address] [place] [address], [facility] ABS NEUTROPHILS 4.5 10*3/uL Normal 1.6-7.6 [facility] Comment on above: Order Comment: No: D o not add to previous draw Performed By: #### 4 1000, 05114 #### [facility] [address] [facility] [facility] [place] [address], [facility] Basophils/100 WBC (Bld) 0.0 % Normal 0.0-1.0 [facility] Comment on above: Order Comment: No: D o not add to previous draw Performed By: #### 4 1000, 64180 #### [facility] [address] [facility] [facility] [place] [address], [facility] Eosinophils (Bld) [#/Vol] 0.0 10*3/uL Normal 0.0-0.5 [facility] Comment on above: Order Comment: No: D o not add to previous draw Performed By: #### 4 1000, 45236 #### [facility] [address] [facility] [facility] [place] [address], [facility] Eosinophils/100 WBC (Bld) 0.0 % Normal 0.0-6.0 [facility] Comment on above: Order Comment: No: D o not add to previous draw Performed By: #### 4 1000, 15540 #### [facility] [address] [place] [address], [facility] Erythrocyte distribution width (RBC) [Ratio] 14.1 % Normal 11.5-15.0 [facility] Comment on above: Order Comment: No: D o not add to previous draw Performed By: #### 4 1000, 76825 #### [facility] [address] [place] [address], [facility] GIANT PLATELETS Present Normal [facility] Comment on above: Order Comment: No: D o not add to previous draw Performed By: #### 4 1000, 37443 #### [facility] [address] [place] [address], [facility] Hematocrit (Bld) [Volume fraction] 36.0 % Low 39.0-50.0 [facility] Comment on above: Order Comment: No: D o not add to previous draw Performed By: #### 4 1000, 62771 #### [facility] [address] [place] [id number], [facility] Hemoglobin (Bld) [Mass/Vol] 11.8 g/dL Low 13.0-17.0 [facility] Comment on above: Order Comment: No: D o not add to previous draw Performed By: #### 4 1000, 32193 #### [facility] [address] [place] [address], [facility] Lymphocytes (Bld) [#/Vol] 0.5 10*3/uL Low 1.2-4.0 [facility] Comment on above: Order Comment: No: D o not add to previous draw Performed By: #### 4 1000, 07115 #### [facility] [address] [place] [address], [facility] Lymphocytes/100 WBC (Bld) 8.2 % Low 20.0-45.0 [facility] Comment on above: Order Comment: No: D o not add to previous draw Performed By: #### 4 1000, 78962 #### [facility] [address] [place] [address], [facility] MCH (RBC) [Entitic mass] 35.2 pg High 27.0-33.0 [facility] Comment on above: Order Comment: No: D o not add to previous draw Performed By: #### 4 1000, 45591 #### [facility] [address] [place] [address], [facility] MCHC (RBC) [Mass/Vol] 32.8 g/dL Normal 32.0-35.0 [facility] Comment on above: Order Comment: No: D o not add to previous draw Performed By: #### 4 1000, 21180 #### [facility] [address] [facility] [facility] [place] [address], [facility] MCV (RBC) [Entitic vol] 107.5 fL High 82.0-98.0 [facility] Comment on above: Order Comment: No: D o not add to previous draw Performed By: #### 4 1000, 47888 #### [facility] [address] [facility] [facility] [place] [address], [facility] METAMYELO 3.7 % High 0.0-0.0 [facility] Comment on above: Order Comment: No: D o not add to previous draw Performed By: #### 4 1000, 06344 #### [facility] [address] [facility] [facility] [place] [address], [facility] Monocytes (Bld) [#/Vol] 0.5 10*3/uL Normal 0.1-1.0 [facility] Comment on above: Order Comment: No: D o not add to previous draw Performed By: #### 4 1000, 76692 #### [facility] [address] [facility] [place] [id number], [facility] MONOS 9.2 % Normal 5.0-12.0 [facility] Comment on above: Order Comment: No: D o not add to previous draw Performed By: #### 4 1000, 58082 #### [facility] [address] [facility] [facility] [place] [id number], [facility] MYELOS 3.7 % High 0.0-0.0 [facility] Comment on above: Order Comment: No: D o not add to previous draw Performed By: #### 4 1000, 52900 #### [facility] [address] [place] [address], [place] Neutrophils/100 WBC (Bld) 75.2 % High 40.0-72.0 [facility] Comment on above: Order Comment: No: D o not add to previous draw Performed By: #### 4 1000, 58344 #### [facility] [address] [place] [address], [place] NRBC SCAN Present Normal [facility] Comment on above: Order Comment: No: D o not add to previous draw Performed By: #### 4 1000, 10430 #### [facility] [address] [place] [address], [place] Nucleated RBC/100 WBC (Bld) [Ratio] 0 % Normal 0-0 [facility] Comment on above: Order Comment: No: D o not add to previous draw Performed By: #### 4 1000, 88687 #### [facility] [address] [place] [address], [place] PLAT CNT 153 10*3/uL Normal 150-400 [facility] Comment on above: Order Comment: No: D o not add to previous draw Performed By: #### 4 1000, 40545 #### [facility] [address] [place] [address], [place] RBC (Bld) [#/Vol] 3.35 10*6/uL Low 4.20-5.70 [facility] Comment on above: Order Comment: No: D o not add to previous draw Performed By: #### 4 1000, 05703 #### [facility] [address] [place] [address], [place] WBC (Bld) [#/Vol] 5.92 10*3/uL Normal 4.00-10.60 [facility] Comment on above: Order Comment: No: D o not add to previous draw Performed By: #### 4 1000, 89214 #### [facility] [address] [place] [address], [facility] CPKon 06-27-2020 CK [Catalytic activity/Vol] 90 U/L Normal 30-223 [facility] Comment on above: Order Comment: No: D o not add to previous draw Performed By: #### 4 1000, 07784, 97263 #### [facility] [address] [place] [address], [facility] CTA HEADon 06-27-2020 CTA HEAD [facility] Department of Radiology [address] [place], [place] [id number] ===== Patient Name: CHIKI JUAREZ : 1945 Sex: M Age: Race: White Pt. Location: [id number] Patient Status: I Ordered Date: 06/27/2020 9:05:00 AM Completed Date: 06/27/2020 10:53 AM Requesting Provider: RAYSA LEDESMA Attending Provider: MYA BHAKTA Report Copy To: Signs & Symptoms: Stroke(CVA) History: See Comments Comments: CVA Exam: CTA HEAD ===== CTA HEAD 06/27/2020 10:53 AM CLINICAL INDICATIONS: [...] achievable Electronically signed: Ashu García. Transcribed by: [email or web address], User Resident: Electronically Signed by: ASHU GARCÍA @ 06/27/2020 01:12 PM Normal [facility] Comment on above: Order Comment: No: D o not add to previous draw CTA NECKon 06-27-2020 CTA NECK [facility] Department of Radiology [address] [place] [id number] ===== Patient Name: CHIKI JUAREZ : 1945 Sex: M Age: Race: White Pt. Location: [id number] Patient Status: I Ordered Date: 06/27/2020 9:05:00 AM Completed Date: 06/27/2020 10:53 AM Requesting Provider: RAYSA LEDESMA Attending Provider: MYA BHAKTA Report Copy To: Signs & Symptoms: Difficulty Swallowing History: See Comments Comments: Exam: CTA NECK ===== CTA NECK 06/27/2020 10:53 AM CLINICAL INDICATIONS: [...] viewed on a separate workstation. The [place] Symptomatic Carotid Endarterectomy Trial (NASCET) method for [...] achievable Electronically signed: Ashu García. Transcribed by: [email or web address], User Resident: Electronically Signed by: ASHU GARCÍA @ 06/27/2020 01:08 PM Normal [facility] D DIMER TESTon 06-27-2020 D-DIMER TEST 0.39 mcg/mL FEU Normal 0.27-0.49 [facility] Comment on above: Order Comment: No: D o not add to previous draw Result Comment: D-Di fide values of less than 0.50 ug/ml (FEU) are considered to be a negative predictor of thrombosis. However, the D-Dimer result should be used in conjunction with pretest probability and should not be used alone to diagnose a thrombotic event. Performed By: #### 4 1000, 61009 #### [facility] [address] [place] [address], [facility] FERRITINon 06-27-2020 Ferritin [Mass/Vol] 250 ng/mL Normal 24-336 [facility] Comment on above: Order Comment: No: D o not add to previous draw Performed By: #### 4 1000, 29687, 66332 #### [facility] [address] [facility] [place] [address], [facility] HEMOGLOBIN A1Con 06-27-2020 HbA1c (Bld) [Mass fraction] 134 mmol/L Normal [facility] Comment on above: Order Comment: No: D o not add to previous draw Performed By: #### 4 1000, 61749, 51873 #### [facility] [address] [facility] HbA1c (Bld) [Mass fraction] 6.3 % High 4.0-6.0 [facility] Comment on above: Order Comment: No: D o not add to previous draw Performed By: #### 4 1000, 75016, 71254 #### [facility] [address] [facility] [place] [address], [facility] LDH BLOODon 06-27-2020 LDH 213 Units/L Normal 140-271 [facility] Comment on above: Order Comment: No: D o not add to previous draw Performed By: #### 4 1000, 44948, 33732 #### [facility] [address] [place] [address], [facility] LIVER BATTERYon 06-27-2020 Albumin [Mass/Vol] 3.5 g/dL Normal 3.5-5.7 [facility] Comment on above: Order Comment: No: D o not add to previous draw Performed By: #### 4 1000, 04733, 76283 #### [facility] [address] [place] [address], [place] ALKALINE PHOSPH 62 IU/L Normal 34-104 [facility] Comment on above: Order Comment: No: D o not add to previous draw Performed By: #### 4 1000, , 47951 #### [facility] [address] [place] [address], [place] ALT [Catalytic activity/Vol] 11 U/L Normal 7-52 [facility] Comment on above: Order Comment: No: D o not add to previous draw Performed By: #### 4 1000, , 83823 #### [facility] [address] [place] [address], [place] AST [Catalytic activity/Vol] 10 U/L Low 13-39 [facility] Comment on above: Order Comment: No: D o not add to previous draw Performed By: #### 4 1000, , 83680 #### [facility] [address] [place] [address], [place] Bilirubin [Mass/Vol] 0.5 mg/dL Normal 0.3-1.0 [facility] Comment on above: Order Comment: No: D o not add to previous draw Performed By: #### 4 1000, , 56149 #### [facility] [address] [place] [address], [place] Bilirubin.direct [Mass/Vol] 0.2 mg/dL Normal 0.0-0.2 [facility] Comment on above: Order Comment: No: D o not add to previous draw Performed By: #### 4 1000, 13831, 16040 #### [facility] [address] [place] [address], [place] Protein [Mass/Vol] 6.0 g/dL Normal 6.0-8.3 [facility] Comment on above: Order Comment: No: D o not add to previous draw Performed By: #### 4 1000, 04810, 63889 #### [facility] [address] [place] [address], [facility] MAGNESIUM BLOODon 06-27-2020 Magnesium [Mass/Vol] 2.3 mg/dL Normal 1.9-2.7 [facility] Comment on above: Order Comment: No: D o not add to previous draw Performed By: #### 4 1000, 01742, 72927 #### [facility] [address] [place] [address], [facility] POC GLUCOSE LABon 06-27-2020 Glucose [Mass/Vol] 103 mg/dL High 70-100 [facility] Comment on above: Performed By: #### 4 1000, 38582 #### [facility] [address] [place] [address], [facility] Glucose [Mass/Vol] 100 mg/dL Normal 70-100 [facility] Comment on above: Performed By: #### 4 1000, 06419 #### [facility] [address] [place] [address], [facility] POTASSIUM BLOODon 06-27-2020 Potassium [Moles/Vol] 4.5 mmol/L Normal 3.5-5.1 [facility] Comment on above: Order Comment: No: D o not add to previous draw Performed By: #### 4 1406 #### [facility] [address] [facility] [place] [address], [facility] PROTHROMBIN TIMEon 0 INR Coag (PPP) [Relative time] 1.05 {INR} Normal 0.91-1.16 [facility] Comment on above: Order Comment: No: D o not add to previous draw Result Comment: ACCC P RECOMMENDED INR FOR WARFARIN THERAPY ------ ------- CONDITION INR PROPHYLAXIS OF VENOUS THROMBOSIS 2-3 (HIGH-RISK SURGERY) TREATMENT OF VENOUS THROMBOSIS 2-3 TREATMENT OF PULMONARY EMBOLISM 2-3 PREVENTION OF SYSTEMIC EMBOLISM: 2-3 ACUTE MYOCARDIAL INFARCTION TISSUE HEART VALVES VALVULAR HEART DISEASE ATRIAL FIBRILLATION RECURRENT SYSTEMIC EMBOLISM MECHANICAL HEART VALVE 2.5-3.5 FROM: ORAL ANTICOAGULANTS. MECHANISM OF ACTION, CLINICAL EFFECTIVENESS, AND OPTIMAL THERAPEUTIC RANGE. CHEST 1995;108:231S-246S. Performed By: #### 4 1000, 16523 #### [facility] [address] PT Coag (PPP) [Time] 13.7 s Normal 12.3-14.8 [facility] Comment on above: Order Comment: No: D o not add to previous draw Result Comment: ALL RESULTS MUST BE INTERPRETED WITH RESPECT TO BLOOD DRAWING ARTIFACT OR DILUTION ERROR OF ANTICOAGULANT AT THE TIME OF SAMPLING. Performed By: #### 4 1000, 65319 #### [facility] [address] TSH3 WITH REFLEX FT4on 06-27 TSH 3RD GENERATION 0.86 uIU/mL Normal 0.34-5.60 [facility] Comment on above: Performed By: #### 4 1000, 04451, 08325 #### [facility] [address] VITAMIN B12on 06-27-2020 Cobalamin (Vitamin B12) [Mass/Vol] 3006 pg/mL High 180-914 [facility] Comment on above: Result Comment: REFE RENCE RANGES: 180-914 pg/mL Normal 145-179 pg/mL Indeterminate <145 pg/mL Deficient Performed By: #### 4 1000, 75822, 20949 #### [facility] [address] PHOSPHORUS BLOODon 0 Phosphate [Mass/Vol] 3.2 mg/dL Normal 2.5-5.0 [facility] Comment on above: Order Comment: No: D o not add to previous draw Performed By: #### 4 1000, 43717 #### [facility] [address] TROPONIN-Ion 06-26-2020 Troponin I.cardiac [Mass/Vol] 0.01 ng/mL Normal 0.00-0.04 [facility] Comment on above: Order Comment: No: D o not add to previous draw Result Comment: REFE RENCE RANGES: 0.00 - 0.04 ng/ml NORMAL 0.05 - 0.50 ng/ml INDETERMINATE > 0.50 ng/ml CONSISTENT WITH AN M.I. Performed By: #### 4 1000, 41807 #### [facility] [address] [facility] Vital Signs Date Time Vital Sign Value Performing Clinician Facility 06-20-2024 08:42-0500 Body height 162.6 cm The [employer] DO Work Phone: [facility] 06-20-2024 08:42-0500 Body mass index (BMI) [Ratio] 37.76 kg/m2 The [employer] DO Work Phone: [facility] 06-20-2024 08:42-0500 Body weight 99.79 kg The [employer] DO Work Phone: [facility] 06-09-2024 09:43-0400 Body height 162.6 cm [employer] DO Work Phone: [facility] 06-09-2024 09:43-0400 Body mass index (BMI) [Ratio] 37.76 kg/m2 [employer] DO Work Phone: [facility] 06-09-2024 09:43-0400 Body weight 99.79 kg [employer] DO Work Phone: [facility] 06-06-2024 13:36-0400 Body mass index (BMI) [Ratio] 33.83 kg/m2 Tyler Draper MD Work Phone: [facility] 06-06-2024 13:36-0400 Body temperature 97 [degF] Tyler Draper MD Work Phone: [facility] 06-06-2024 13:36-0400 Body weight 100.9 kg Tyler Draper MD Work Phone: [facility] 06-06-2024 13:36-0400 Diastolic blood pressure 59 mm[Hg] Tyler Draper MD Work Phone: [facility] 06-06-2024 13:36-0400 Heart rate 74 /min Tyler Draper MD Work Phone: [facility] 06-06-2024 13:36-0400 Respiratory rate 18 /min Tyler Draper MD Work Phone: [facility] 06-06-2024 13:36-0400 SaO2% (BldA) [Mass fraction] 90 % Tyler Draper MD Work Phone: [facility] 06-06-2024 13:36-0400 Systolic blood pressure 109 mm[Hg] Tyler Draper MD Work Phone: [facility] 06-01-2024 16:00-0400 Diastolic blood pressure 64 mm[Hg] MD Pito Patterson Work Phone: [facility] 06-01-2024 16:00-0400 Heart rate 75 /min MD Pito Patterson Work Phone: [facility] 06-01-2024 16:00-0400 Inhaled oxygen concentration 4 % MD Pito Patterson Work Phone: [facility] 06-01-2024 16:00-0400 Respiratory rate 20 /min MD Pito Patterson Work Phone: [facility] 06-01-2024 16:00-0400 SaO2% (BldA) [Mass fraction] 99 % MD Pito Patterson Work Phone: [facility] 06-01-2024 16:00-0400 Systolic blood pressure 121 mm[Hg] MD Pito Patterson Work Phone: [facility] 06-01-2024 13:16-0400 Inhaled oxygen flow rate 4 L/min MD Pito Pattersno Work Phone: [facility] 06-01-2024 13:02-0400 Body height 162.56 cm MD Pito Patterson Work Phone: [facility] 06-01-2024 13:02-0400 Body temperature 97.5 [degF] MD Pito Patterson Work Phone: [facility] 06-01-2024 13:02-0400 Body weight 98.88 kg MD Pito Patterson Work Phone: [facility] 05-31-2024 14:31-0400 Body height 162.6 cm Connor Crawley DO Work Phone: [facility] 05-31-2024 14:31-0400 Body mass index (BMI) [Ratio] 37.76 kg/m2 Connor Walkerjoni DO Work Phone: [facility] 05-31-2024 14:31-0400 Body weight 99.79 kg Connor Walkerjoni DO Work Phone: [facility] 04-22-2024 09:41-0400 Blood Pressure Location Oni MCKEON [facility] 04-22-2024 09:41-0400 Body temperature 98.6 [degF] Oni MCKEON [facility] 04-22-2024 09:41-0400 Diastolic blood pressure 52 mm[Hg] Oni MCKEON [facility] 04-22-2024 09:41-0400 Heart rate 59 /min Oni MCKEON [facility] 04-22-2024 09:41-0400 Respiratory rate 16 /min Oni MCKEON [facility] 04-22-2024 09:41-0400 Systolic blood pressure 102 mm[Hg] Oni MCKEON [facility] 04-19-2024 14:18-0400 Body height 172.7 cm Tyler Draper MD Work Phone: [facility] 04-19-2024 14:18-0400 Body mass index (BMI) [Ratio] 33.16 kg/m2 Tyler Draper MD Work Phone: [facility] 04-19-2024 14:18-0400 Body temperature 96.8 [degF] Tyler Draper MD Work Phone: [facility] 04-19-2024 14:18-0400 Body weight 98.9 kg Tyler Draper MD Work Phone: [facility] 04-19-2024 14:18-0400 Diastolic blood pressure 66 mm[Hg] Tyler Draper MD Work Phone: [facility] 04-19-2024 14:18-0400 Heart rate 85 /min Tyler Draper MD Work Phone: [facility] 04-19-2024 14:18-0400 Respiratory rate 20 /min Tyler Draper MD Work Phone: [facility] 04-19-2024 14:18-0400 SaO2% (BldA) [Mass fraction] 92 % Tyler Draper MD Work Phone: [facility] 04-19-2024 14:18-0400 Systolic blood pressure 120 mm[Hg] Tyler Draper MD Work Phone: [facility] 03-09-2023 10:50-0400 Blood Pressure Location Oni MCKEON [facility] 03-09-2023 10:50-0400 Diastolic blood pressure 70 mm[Hg] Oni MCKEON [facility] 03-09-2023 10:50-0400 Heart rate 71 /min Oni MCKEON [facility] 03-09-2023 10:50-0400 Respiratory rate 16 /min Oni MCKEON [facility] 03-09-2023 10:50-0400 Systolic blood pressure 109 mm[Hg] Oni MCKEON [facility] 01-09-2022 13:00-0400 Body height 172.7 cm Hosea Herrera MD Work Phone: [facility] 01-09-2022 13:00-0400 Body temperature 97.81 [degF] Hosea Herrera MD Work Phone: [facility] 01-09-2022 13:00-0400 Body weight 100.61 kg Hosea Herrera MD Work Phone: [facility] 01-09-2022 13:00-0400 Diastolic blood pressure 68 mm[Hg] Hosea Herrera MD Work Phone: [facility] 01-09-2022 13:00-0400 Heart rate 93 /min Hosea Herrera MD Work Phone: [facility] 01-09-2022 13:00-0400 Respiratory rate 18 /min Hosea Herrera MD Work Phone: [facility] 01-09-2022 13:00-0400 SaO2% (BldA) [Mass fraction] 93 % Hosea Herrera MD Work Phone: [facility] 01-09-2022 13:00-0400 Systolic blood pressure 95 mm[Hg] Hosea Herrera MD Work Phone: [facility] 11-19-2021 10:19-0400 Blood Pressure Location Romeo Vidal Jr. [facility] 11-19-2021 10:19-0400 Diastolic blood pressure 60 mm[Hg] Romeo Vidal Jr. [facility] 11-19-2021 10:19-0400 Heart rate 80 /min Romeo Vidal Jr. [facility] 11-19-2021 10:19-0400 Respiratory rate 16 /min Romeo Vidal Jr. [facility] 11-19-2021 10:19-0400 Systolic blood pressure 113 mm[Hg] Romeo Vidal Jr. [facility] Encounters Encounter Date Encounter Type Care Provider Facility Start: 04-24-2025 ambulatory Oni Victor ty:[facility] Start: 02-14-2025 ambulatory Pito Patterson Facility :[facility] Frannie Start: 11-24-2024 ambulatory Pito Patterson Facility :[facility] Bonnie Start: 08-25-2024 End: 08-25-2024 ambulatory [facility]ito [facility] Start: 08-04-2024 End: 08-04-2024 ambulatory CRYS TAYLOR Not Available Start: 08-04-2024 End: 08-04-2024 Office outpatient visit 15 minutes Crys HERNANDEZ Work Phone: [facility] Comment on above: Capillary angioma (P rimary Dx); Melanocytic nevus of trunk; Seborrheic keratosis; Actinic keratosis; History of SCC (squamous cell carcinoma) of skin; Lentigo simplex Start: 07-13-2024 End: 07-13-2024 ambulatory MARKUS CERNA Facility:[facility] Frannie Start: 06-20-2024 End: 06-20-2024 Bamboo flowsheet Connor Crawley DO Work Phone: [facility] [place] Start: 06-20-2024 End: 06-20-2024 Bamboo flowsheet Connor Crawley DO Work Phone: [facility] [place] Start: 06-20-2024 End: 06-20-2024 Office outpatient visit 15 minutes Connor Crawley DO Work Phone: [facility] [place] Comment on above: 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); Wound infection; Thyroid nodule (CMS/HCC) Start: 06-20-2024 End: 06-20-2024 ambulatory CONNOR CRAWLEY Not Available Start: 06-10-2024 End: 06-13-2024 Telephone encounter Valerie Mayes RN Hematology/Oncology Comment on above: Pet results Start: 06-09-2024 End: 06-09-2024 Bamboo flowsheet Connor Crawley DO Work Phone: [facility] [place] Start: 06-09-2024 End: 06-09-2024 Bamboo flowsheet Connor Crawley DO Work Phone: [facility] [place] Start: 06-09-2024 End: 06-09-2024 Postop follow up visit related to original px Connor Crawley DO Work Phone: [facility] [place] Comment on above: Wound infection (Lydia apurva Dx); Squamous cell carcinoma of scalp Start: 06-09-2024 End: 06-09-2024 ambulatory CONNOR CRAWLEY Not Available Start: 06-06-2024 End: 06-06-2024 Patient encounter procedure Tyler Draper MD Work Phone: Hematology/Oncology Start: 06-06-2024 End: 06-06-2024 ambulatory Tyler Draper MD Work Phone: Hematology/Oncology Comment on above: 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); History of lymphoma; History of prostate cancer; Skin lesion of face Start: 06-01-2024 End: 06-01-2024 Admission to same day surgery center MD Pito Patterson Work Phone: [facility] Start: 06-01-2024 End: 06-01-2024 ambulatory MD Pito Patterson Work Phone: [facility] Work Phone: Start: 05-31-2024 End: 05-31-2024 Office outpatient new 60 minutes Connor Crawley DO [facility] Comment on above: 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); 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 Start: 05-31-2024 End: 05-31-2024 ambulatory CONNOR CRAWLEY Not Available Start: 05-31-2024 End: 05-31-2024 Bamboo flowsheet Connor Crawley DO Work Phone: [facility] NICA CURRAN Start: 05-31-2024 End: 05-31-2024 Bamboo flowsheet Connor Crawley DO Work Phone: [facility] NICA CURRAN Start: 05-17-2024 End: 05-17-2024 ambulatory Pito Patterson Facility:[facility] Start: 05-13-2024 End: 05-13-2024 ambulatory [facility] Start: 05-03-2024 End: 05-03-2024 Bamboo flowsheet Crys Vivar PA Work Phone: [facility] Start: 05-03-2024 End: 05-03-2024 Bamboo flowsheet [facility] Work Phone: [facility] Start: 05-03-2024 End: 05-03-2024 Office outpatient new 20 minutes Crys Northosiris PA Work Phone: [facility] Comment on above: Hemangioma of skin a nd subcutaneous tissue (Primary Dx); Neoplasm of unspecified behavior of bone, soft tissue, and skin; Seborrheic keratosis; Actinic keratosis Start: 05-03-2024 End: 05-03-2024 ambulatory CRYS TAYLOR Not Available Start: 04-29-2024 End: 04-29-2024 ambulatory TYLER DRAPER Facility:[facility] Start: 04-29-2024 End: 04-29-2024 Subsequent hospital visit by physician Arrival Time Radiology Work Phone: Radiology Pet CT Comment on above: History of lymphoma [Z85.72] Start: 04-26-2024 End: 04-26-2024 ambulatory CONNOR DEBI [facility] Start: 04-22-2024 End: 04-22-2024 ambulatory Oni MCKEON Facility:[facility] Start: 04-22-2024 End: 04-22-2024 Patient encounter procedure Oni MCKEON [facility] Start: 04-19-2024 End: 04-19-2024 Patient encounter procedure Tyler Draper MD Work Phone: Hematology/Oncology Start: 04-19-2024 End: 04-19-2024 ambulatory Tyler Draper MD Work Phone: Hematology/Oncology Comment on above: 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); History of lymphoma; Lymph node enlargement; Skin lesion of face Start: 04-19-2024 End: 04-26-2024 Telephone encounter Tyler Draper MD Work Phone: [facility] Comment on above: Future Appointment Start: 02-15-2024 End: 02-15-2024 ambulatory Pito Patterson Facility:[facility] Start: 02-02-2024 Telephone encounter Valerie Wallace Hematology/Oncology Comment on above: Results Start: 01-21-2024 End: 01-21-2024 ambulatory PITO PATTERSON Facility:[facility] Start: 12-01-2023 End: 12-01-2023 ambulatory Pito Patterson Facility:[facility] Start: 10-19-2023 End: 10-19-2023 ambulatory [facility] Start: 10-19-2023 End: 10-19-2023 Lab Drop off Pito Patterson [facility] Start: 10-19-2023 End: 10-19-2023 ambulatory Pito Patterson Facility:[facility] Start: 09-17-2023 End: 09-17-2023 ambulatory [facility] Start: 09-09-2023 End: 09-09-2023 ambulatory [facility] Start: 07-30-2023 End: 07-30-2023 ambulatory TYLER DRAPER Facility:[facility] Start: 07-28-2023 End: 07-28-2023 ambulatory [facility] Start: 07-23-2023 End: 07-23-2023 ambulatory PITO PATTERSON Facility:[facility] Start: 05-21-2023 End: 05-21-2023 [facility] Start: 03-31-2023 End: 03-31-2023 Patient encounter procedure Oni MCKEON [facility] Start: 03-09-2023 End: 03-09-2023 Patient encounter procedure Oni MCKEON [facility] Frannie Start: 01-26-2023 End: 01-26-2023 Lab Drop off Marlys Olivia [facility] Start: 08-05-2022 Telephone encounter Aby Hernandez RN Hematology/Oncology Comment on above: Results Start: 07-24-2022 Telephone encounter Tyler cadena MD Work Phone: [facility] Comment on above: Appointment Start: 04-22-2022 End: [...] procedure Romeo Vidal Jr. [facility] Start: 09-24-2021 End: 09-25-[address] WILL [...] 06-30-2020 Evaluation and management of inpatient CRESCENCIO CHANCE Facility:[facility] Procedures Date Procedure Procedure Detail Performing Clinician Start: 08-04-2024 CRYOTHERAPY SKIN LESION Crys Claudia HERNANDEZ Work Phone: Start: 06-01-2024 Excision of lesion of cheek MD Pito Patterson Work Phone: Start: 05-03-2024 CRYOTHERAPY SKIN LESION [employer] Gonzalezosiris HERNANDEZ Work Phone: Start: 05-03-2024 End: 05-03-2024 SKIN / NAIL BIOPSY Crys HERNANDEZ Work Phone: Start: 04-29-2024 Gluc bld gluc mntr d ev cleared fda spec home use [facility] Provider Start: 03-31-2023 Cystoscopy Oni DURAN Start: 01-09-2022 Adult depression scr eening assessment Hosea Herrera MD Work Phone: Start: 01-07-[address] WILL BOLDEN IGHT Comment on above: Performed By: #### P SAD ####[facility] [id number] [place] [id number]. Trevor Simone Start: 06-28-2020 INSERT PACE. DUAL CH AM IN CHEST SUBCU/FASCIA, OPEN CONNOR CARRERA Start: 06-28-2020 INSERTION OF PACEMAK ER LEAD INTO R VENTRICLE, PERC APPROACH CONNOR CARRERA Start: 06-28-2020 INSERTION OF PACEMAK ER LEAD INTO RIGHT ATRIUM, PERC APPROACH CONNOR CARRERA Start: 06-27-2020 INTRODUCTION OF OTHE R GAS INTO RESP TRACT, VIA OPENING MYA LIVIA Start: 08-17-2019 Cardiac pacemaker, d evice (physical object) Oni MIKE Start: 03-10-2019 Transrectal biopsy o f prostate using ultrasound guidance Romeo Vidal Jr. Start: 03-12-2010 Transurethral cystoscopy Romeo Vidal Jr. Start: 08-17-2006 Excision of sentinel lymph node Romeo Vidal Jr. Plan of Treatment Date Care Activity Detail Author Start: 05-09-2030 Urine microalbumin profile DTaP,Tdap,Td Vaccine (2 - Td or Tdap) [facility] Start: 04-19-2027 Diabetes Screening Diabetes Screening [facility] Start: 01-20-2027 Diabetes Screening Diabetes Screening [facility] Start: 07-18-2025 DIABETES SCREEN DIABETES SCREEN [facility] Start: 02-02-2025 End: 02-02-2025 Patient encounter procedure 02/02/2025 1:10 PM EDT Office Visit [facility] [address] [place] [address] Crys Taylor PA [address] [place] [address] [facility] Start: 01-09-2025 DIABETES SCREEN DIABETES SCREEN [facility] Start: 11-21-2024 End: 11-21-2024 Follow-up encounter 11/21/2024 3:20 PM EDT Visit (SP) Office Hematology/Oncology [address] [place] [address] Tyler Draper MD [address] [place] [address] 6 Month follow up with lab Hematology/Oncology Comment on above: 6 Month follow up with lab Start: 11-21-2024 End: 11-21-2024 Patient encounter procedure 11/21/2024 3:00 PM EDT Office Visit [facility] [address] [place] [address] 6 Month follow up with lab [facility] Comment on above: 6 Month follow up with lab Start: 11-15-2024 End: 07-10-2025 CT Chest W contrast IV CT CHEST W IVCON Radiology Routine Localized enlarged lymph nodes Expected: 11/15/2024, Expires: 07/10/2025 [facility] Work Phone: Comment on above: Expected: 11/15/2024, Expires: Start: 11-15-2024 End: 11-15-2024 Patient encounter procedure 11/15/2024 1:15 PM EDT Appointment Radiology Pet CT [address] [place] [address] CT Chest with IVC Radiology Pet CT Comment on above: CT Chest with IVC Start: 08-04-2024 End: 08-04-2024 Patient encounter procedure 08/04/2024 1:00 PM EST Office Visit [facility] [address] [place] [address] Crys Taylor PA [address] [place] [address] [facility] Start: 07-07-2024 Covid-19 Vaccine ( season) Covid-19 Vaccine ( season) [facility] Start: 06-28-2024 End: 06-28-2024 Patient encounter procedure 06/28/2024 1:00 PM EST Office Visit [facility] [address] [place] [address] Chiki Malone MD [address] [place] [address] [facility] Start: 06-20-2024 End: 06-20-2024 Patient encounter procedure 06/20/2024 8:45 AM EST Office Visit [facility] [place] [address] [place] [id number] Connor Crawley DO [address] [place] [address] Arrived [facility] [place] Comment on above: Arrived Start: 06-17-2024 End: 06-17-2024 Patient encounter procedure 06/17/2024 1:15 PM EDT Office Visit [facility] [place] [address] [place] [id number] Connor Crawley DO [address] [place] [address] [facility] [place] Start: 06-09-2024 End: 06-09-2024 Patient encounter procedure [facility] [place] Comment on above: Arrived Start: 06-06-2024 End: 06-06-2024 Follow-up encounter 06/06/2024 1:45 PM EDT Visit (SP) Office Hematology/Oncology [address] [place] [address] Tyler Draper MD [address] [place] [address] 6 week follow up Hematology/Oncology Comment on above: 6 week follow up Start: 06-06-2024 End: 06-06-2024 Patient encounter procedure 06/06/2024 1:30 PM EDT Office Visit [facility] [address] [address] 6 week follow up [facility] Comment on above: 6 week follow up Start: 06-01-2024 [facility] Start: 05-31-2024 End: 05-31-2024 Patient encounter procedure 05/31/2024 2:30 PM EDT Office Visit [facility] [address] [place] [address] Connor Crawley, DO [address] [place] [address] 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 [facility] Comment on above: Squamous cell cancer of skin of left vibha ek Start: 05-03-2024 End: 05-03-2024 Patient encounter procedure 05/03/2024 11:00 AM EDT Office Visit [facility] [address] [place] [address] Crys Taylor PA [address] [place] [address] Arrived [facility] Comment on above: Arrived Start: 04-29-2024 End: 04-29-2024 Patient encounter procedure 04/29/2024 1:30 PM EDT Appointment Radiology Pet CT [address] [place] [address] Comment on above: Pet scan Start: 04-19-2024 End: 04-19-2024 ambulatory 04/19/2024 2:30 PM EDT Visit (SP) Office Hematology/Oncology [address] [place] [address] Tyler Draper MD [address] [place] [address] 6 month lab Hematology/Oncology Comment on above: 6 month lab Start: 04-19-2024 End: 04-19-2024 Patient encounter procedure 04/19/2024 2:15 PM EDT Office Visit [facility] [address] [place] [address] 6 month lab [facility] Comment on above: 6 month lab Start: 04-19-2024 End: 07-19-2024 MONOCLONAL PROTEIN, SERUM (BLOOD) [facility] Comment on above: Expected: 04/19/2024, Expires: Start: 04-19-2024 End: 07-19-2024 PROT ELECT SERUM WITH CARSON AND INTERP [facility] Work Phone: Comment on above: Expected: 04/19/2024, Expires: Start: 04-17-2024 Covid-19 Vaccine ( season) Covid-19 Vaccine () [facility] Start: 04-17-2024 Influenza vaccination Influenza Vaccine (#1) [facility] Start: 08-27-2023 Covid-19 Vaccine ( season) Covid-19 Vaccine ( season) [facility] Start: 08-17-2023 Advance Directive Discussion Advance Directive Discussion [facility] Start: 08-17-2023 Behavioral Health Screening Behavioral Health Screening [facility] Start: 01-09-2023 Adult depression screening assessment DEPRESSION SCREENING [facility] Start: 07-18-2022 End: 09-17-2022 CBC panel - Blood by Automated count CBC Lab Routine MGUS (monoclonal gammopathy of unknown significance) Expected: 07/18/2022 (Approximate), Expires: 09/17/2022 [facility] Work Phone: Comment on above: Expected: 07/18/2022 (Approximate), Expi res: 09/17/2022 Start: 07-18-2022 End: 09-17-2022 Comprehensive metabolic 2000 panel - Serum or Plasma COMP METABOLIC PANEL Lab Routine MGUS (monoclonal gammopathy of unknown significance) Expected: 07/18/2022 (Approximate), Expires: 09/17/2022 [facility] Work Phone: Comment on above: Expected: 07/18/2022 (Approximate), Expi res: 09/17/2022 Start: 07-18-2022 End: 09-17-2022 MONOCLONAL PROTEIN, SERUM (BLOOD) MONOCLONAL PROTEIN, SERUM (BLOOD) Lab Routine MGUS (monoclonal gammopathy of unknown significance) Expected: 07/18/2022 (Approximate), Expires: 09/17/2022 [facility] Work Phone: Comment on above: Expected: 07/18/2022 (Approximate), Expi res: 09/17/2022 Start: 07-18-2022 End: 09-17-2022 PROTEIN ELECTROPHORESIS SERUM W/INTERP PROTEIN ELECTROPHORESIS SERUM W/INTERP Lab Routine MGUS (monoclonal gammopathy of unknown significance) Expected: 07/18/2022 (Approximate), Expires: 09/17/2022 [facility] Work Phone: Comment on above: Expected: 07/18/2022 (Approximate), Expi res: 09/17/2022 Start: 05-06-2022 COVID-19 VACCINE (5 - Booster for Pfizer series) COVID-19 VACCINE (5 - Booster for Pfizer series) [facility] Start: 04-17-2022 Influenza vaccination INFLUENZA (#1) [facility] Start: 09-25-2021 COVID-19 VACCINE (4 - Booster for Pfizer series) COVID-19 VACCINE (4 - Booster for Pfizer series) [facility] Start: 08-17-2021 ADVANCE DIRECTIVE DISCUSSION ADVANCE DIRECTIVE DISCUSSION [facility] Start: 08-17-2021 DEPRESSION ASSESSMENT DEPRESSION ASSESSMENT [facility] Start: 2007 RSV Vaccine (1 - 1-dose 60+ series) RSV Vaccine (1 - 1-dose 60+ series) [facility] Start: 1997 SHINGRIX VACCINE (1 of 2) SHINGRIX VACCINE (1 of 2) [facility] Start: 1992 COLOGUARD (FIT-DNA) COLOGUARD (FIT-DNA) [facility] Start: 1992 Colonoscopy COLONOSCOPY [facility] Start: 1992 COLORECTAL CANCER SCREENING COLORECTAL CANCER SCREENING [facility] Start: [address] COLONOGRAPHY [facility] Start: 1992 FECAL OCCULT BLOOD FECAL OCCULT BLOOD [facility] Start: 1992 SIGMOIDOSCOPY SIGMOIDOSCOPY [facility] Start: 1982 LIPID SCREEN LIPID SCREEN [facility] Start: 1966 SHINGRIX VACCINE (1 of 2) SHINGRIX VACCINE (1 of 2) [facility] Start: 1966 Urine microalbumin profile DTAP,TDAP,TD (1 - Tdap) [facility] Start: 1965 Anxiety Screening Anxiety Screening [facility] [facility] Start: 1965 Depression Screening Depression Screening [facility] Start: 1965 HEPATITIS C SCREENING HEPATITIS C SCREENING [facility] Start: 1965 Hepatitis C screening Hepatitis C Screening [facility] Start: 1945 ABDOMINAL AORTIC ANEURYSM SCREENING ABDOMINAL AORTIC ANEURYSM SCREENING [facility] Start: 1945 Medicare Annual Wellness (AWV) Medicare Annual Wellness (AWV) [facility] CBC W Auto Different ial panel - Blood CBC + DIFF Lab Routine B12 deficiency Diffuse large B-cell lymphoma, unspecified body region (HCC) 01/09/2022 1:40 PM EDT [facility] Work Phone: Dermatopathology exam Dermatopat hology exam Pathology and Cytology Timed Neoplasm of unspecified behavior of bone, soft tissue, and skin Release Upon Ordering for 1 Occurrences starting 05/03/2024 [employer] Work Phone: Comment on above: Release Upon Ordering for 1 Occurrences starting 05/03/2024 Patient Education Know your Meds [facility] Work Phone: Patient referral [facility] Work Phone: End: 05-19-2025 PET+CT Guidance for localization of tumor of Skull base to mid-thigh-- W 18F-FDG IV NM PET/CT SKULL-THIGH SUBSEQUENT Radiology Routine History of lymphoma Lymph node enlargement 1 Occurrences starting 04/19/2024 until 05/19/2025 [facility] Comment on above: 1 Occurrences starting 04/19/2024 until 05/19/2025 PET+CT Guidance for localization of tumor of Skull base to mid-thigh-- W 18F-FDG IV NM PET/CT SKULL-THIGH SUBSEQUENT Radiology Routine History of lymphoma Lymph node enlargement 04/29/2024 3:28 PM EDT [facility] Work Phone: [facility] Immunizations Immunization Date Immunization Notes Care Provider Fa cili 05-12-2024 influenza, high dose seasonal, preservative-free Connor Crawley DO Work Phone: [facility] 05-12-2024 influenza virus vaccine, unspecified formulation Connor Crawley DO Work Phone: [facility] 03-21-2024 canakinumab Oni MCKEON [facility] Comment on above: Result Comment: RSV 03-21-2024 respiratory syncytia l virus (RSV) vaccine, adjuvanted (AREXVY) Tyler Draper MD Work Phone: [facility] 07-02-2023 SARS-CoV-2 mRNA (tozinameran 5y-11y) vaccine Pito Patterson [facility] Comment on above: Result Comment: covi d 19 eneida sucrose pfizer 05-11-2023 influenza, high dose seasonal, preservative-free Pito Patterson [facility] 05-11-2023 influenza virus vaccine, unspecified formulation Tyler Draper MD Work Phone: [facility] 03-11-2022 SARS-CoV-2 mRNA (xhhlczjgydr-hppb-tfjqs se) vaccine Marlys Olivia [facility] 06-25-2021 SARS-CoV-2 (COVID-19 ) mRNA BNT-162b2 vax Marlys Corwin [facility] 05-24-2021 influenza (HD-IIV4) vaccine, age 65+ yr, high dose, quadrivalent, PF (FLUZONE HIGH-DOSE) Tyler Draper MD Work Phone: [facility] 05-24-2021 influenza virus vaccine, unspecified formulation Marlys Corwin [facility] 11-13-2020 COVID-19 vaccine, ag e 12+ yr (PFIZER-BIONTECH - PURPLE TOP) Hosea Herrera MD Work Phone: [facility] 10-22-2020 COVID-19 vaccine, ag e 12+ yr (PFIZER-BIONTECH - PURPLE TOP) Hosea Herrera MD Work Phone: [facility] 07-24-2020 zoster vaccine recombinant Marlys Corwin [facility] 07-22-2020 zoster vaccine recombinant Tyler Draper MD Work Phone: [facility] 05-09-2020 influenza (HD-IIV4) vaccine, age 65+ yr, high dose, quadrivalent, PF (FLUZONE HIGH-DOSE) Tyler Draper MD Work Phone: [facility] 05-09-2020 influenza virus vaccine, unspecified formulation Marlys Corwin [facility] 05-09-2020 tetanus toxoid, redu juvencio diphtheria toxoid, and acellular pertussis vaccine, adsorbed Marlys Corwin [facility] 05-09-2020 zoster vaccine recombinant Marlys Corwin [facility] 04-16-2019 influenza virus vaccine, unspecified formulation Marlys Corwin [facility] 04-16-2019 Seasonal trivalent influenza vaccine, adjuvanted, preservative free Tyler Draper MD Work Phone: [facility] 05-25-2018 influenza nasal, unspecified formulation Tyler Draper MD Work Phone: [facility] 05-25-2018 influenza virus vaccine, unspecified formulation Marlys Corwin [facility] 05-25-2018 influenza, injectabl e, quadrivalent, preservative free Hosea Herrera MD Work Phone: [facility] 05-25-2018 pneumococcal polysaccharide vaccine, 23 valent Hosea Herrera MD Work Phone: [facility] 04-26-2018 influenza nasal, unspecified formulation Tyler Draper MD Work Phone: [facility] 04-26-2018 influenza virus vaccine, unspecified formulation Marlys Corwin [facility] 04-26-2018 influenza, high dose seasonal, preservative-free Hosea Herrera MD Work Phone: [facility] 04-26-2018 pneumococcal polysaccharide vaccine, 23 valent Hosea Herrera MD Work Phone: [facility] 08-04-2017 influenza nasal, unspecified formulation Tyler Draper MD Work Phone: [facility] 08-04-2017 influenza virus vaccine, unspecified formulation Marlys Corwin [facility] 08-04-2017 influenza, high dose seasonal, preservative-free Hosea Herrera MD Work Phone: [facility] 08-04-2017 pneumococcal conjuga te vaccine, 13 valent Hosea Herrera MD Work Phone: [facility] influenza vaccine qs 240 mcg, Patients 65 years and older,, PF, (FLUZONE HIGHDOSE QUAD 20-21 PF) 240 mcg/0.7 mL injection Hosea Herrera MD Work Phone: [facility] Comment on above: Fluzone High-Dose Qu ad 2020-21 (PF) 240 mcg/0.7 mL IM syringe PHARMACY ADMINISTERED influenza vaccine qs 240 mcg, Patients 65 years and older,, PF, (FLUZONE HIGHDOSE QUAD 20-21 PF) 240 mcg/0.7 mL injection Tyler Draper MD Work Phone: [facility] Comment on above: Fluzone High-Dose Qu ad 2020-21 (PF) 240 mcg/0.7 mL IM syringe PHARMACY ADMINISTERED influenza vaccine qs 240 mcg, Patients 65 years and older,, PF, (FLUZONE HIGHDOSE QUAD 20-21 PF) 240 mcg/0.7 mL injection Valerie Mayes RN [facility] influenza vaccine qs 240 mcg, Patients 65 years and older,, PF, (FLUZONE HIGHDOSE QUAD 20-21 PF) 240 mcg/0.7 mL injection Tyler Draper MD Work Phone: [facility] influenza vaccine qs 240 mcg, Patients 65 years and older,, PF, (FLUZONE HIGHDOSE QUAD 20-21 PF) 240 mcg/0.7 mL injection Tyler Draper MD Work Phone: [facility] Payers Date Payer Category Payer Medicare (Managed Care) [facility] MEDIC[facility] [id number] 2022 Medicare [id number] 2014 Medicare [employer] MEDICARE A ETNA MEDICARE PPO [id number] 2014-Present [phone] [address] [place] [address] PPO [id number] 2012 Medicare [id number] 2012 Medicare [id number] 1959 Medicare [id number] 1959 Private Health Insurance [facility] [id number] 1959 Self-pay 1945 Unknown [id number] 2.16.840.1.027769.3.579.2. 647 1947 Unknown [id number] 2.16.840.1.165203.3.579.2. 593 1947 Unknown [id number] 2.16.840.1.635435.3.579.2. 593 1947 Unknown [id number] 2.16.840.1.345768.3.579.2. 593 1947 Unknown [id number] 2.16840.1.472086.3.579.2. 593 1947 Unknown [id number] 2.16.840.1.615909.3.579.2. 593 1947 Unknown [id number] 2.16.840.1.279201.3.579.2. 593 1947 Unknown [id number] 2.16840.1.867199.3.579.2. 593 1947 Unknown [id number] 2.16.840.1.912930.3.579.2. 593 1947 Unknown [id number] 2.16.840.1.970485.3.579.2. 593 1947 Unknown [id number] 2.16.840.1.107679.3.579.2. 593 1947 Unknown [id number] 2.16.840.1.337006.3.579.2. 593 1947 Unknown [id number] 2.16.840.1.390201.3.579.2. 593 1947 Unknown [id number] 2.16.840.1.252049.3.579.2. 593 1947 Unknown [id number] 2.16.840.1.595610.3.579.2. 593 1947 Unknown [id number] 2.16840.1.543168.3.579.2. 593 1947 Unknown [id number] 2.840.1.485053.3.579.2. 593 1947 Unknown [id number] 2.840.1.994605.3.579.2. 593 1947 Unknown [id number] 2.840.1.326627.3.579.2. 593 1947 Unknown [id number] 2.840.1.698945.3.579.2. 593 1947 Unknown [id number] 2.840.1.237489.3.579.2. 593 1947 Unknown [id number] .840.1.581629.3.579.2. 1259 1947 Unknown [id number] .840.1.446727.3.579.2. 1259 1947 Unknown [id number] .840.1.449786.3.579.2. 1259 1947 Unknown [id number] .840.1.937553.3.579.2. 1259 1947 Unknown [id number] .840.1.400032.3.579.2. 1259 1947 Unknown [id number] 2.840.1.107421.3.579.2. 727 1947 Unknown [id number] 2.840.1.634073.3.579.2. 727 1947 Unknown [id number] 2.16.840.1.630932.3.579.2. 727 1947 Unknown [id number] 2.16.840.1.020535.3.579.2. 727 1947 Unknown [id number] 2.16.840.1.668955.3.579.2. 72 1947 Unknown [id number] 2.16.840.1.718422.3.579.2. 72 1947 Unknown [id number] 2.16.840.1.028565.3.579.2. 1947 Unknown [id number] 2.16.840.1.904424.3.579.2. 7 1947 Unknown [id number] 2.16.840.1.522698.3.579.2. 1947 Unknown [id number] 2.16.840.1.585212.3.579.2. 72 1947 Unknown [id number] 2.16.840.1.865314.3.579.2. 72 1947 Unknown [id number] 2.16.840.1.880744.3.579.2. 727 Medicare Medicare Outpatient [id number] [id number] Unknown [id number] 2.16840.1.688583.3.579.2. 593 Unknown [place] BC/BS [id number] Unknown [id number] 2.16840.1.535859.3.579.2. 531 Social History Date Type Detail Facility Start: 11-19-2021 End: 05-03-2024 Tobacco smoking status Ex-smoker (finding) [facility] Comment on above: Patient states he sm oked cigarettes, 1 PPD from about 22 years old until about 42 years old. Start: 07-30-2023 End: 08-04-2024 Sex Assigned At Male [facility] Start: 09-06-1968 End: 09-06-1988 History of tobacco use Current smoker [facility] Start: 09-06-2012 End: 08-04-2024 Cigarettes smoked current (pack per day) - Reported 1 [facility] Start: 09-06-2012 End: 05-03-2024 Tobacco use and exposure Smokeless tobacco non-user [facility] Start: 01-09-2022 End: 06-06-2024 Alcohol intake Current drinker of alcohol (finding) [facility] Start: 04-05-2019 History SDOH Alcohol Comment rare [facility] Start: 1945 Sex Assigned At Not on file [facility] Start: 12-30-2021 End: 01-09-2022 Exposure to SARS-CoV-2 (event) Not sure [facility] Start: 09-06-1968 End: 09-06-1988 History of tobacco use Cigarette Smoker [facility] History of tobacco use Passive smoker [facility] Tobacco smoking status Never [facility] Comment on above: Patient states he sm oked cigarettes, 1 PPD from about 22 years old until about 42 years old. Start: 05-03-2024 End: 08-04-2024 Alcoholic beverage intake Defer [facility] Start: 1945 Sex Assigned At Male F [facility] Tobacco smoking status NHIS Tobacco smoking consumption unknown [facility] NEGATED: Highlighted rowStart: NINF History of tobacco use Passive smoker [facility] Goals Date Patient Goal Desired Activity /State Functional Status Date Assessment Result Facility 04-22-2024 Functional Status N/A [facility] 03-09-2023 Functional Status N/A [facility] Clinical Notes 11-19-2021 to 08-04-2024 MARY Simmons - 08/04/2024 1:00 PM Ericka Crawley DO - 06/20/2024 8:45 AM ESTTelephone Encounter - Shea Kolb - 06/13/2024 10:37 AM EDTPauaurelia Ernie Crawley DO - 06/09/2024 9:45 AM EDT Note Date & Type Note Facility 08-04-2024 History of Present illness Narrative Skin Check Location: Patient requests a skin examination from the waist up Dermatologic history: history of Actinic Keratosis, history of Squamous Cell Carcinoma Last visit: 05/03/2024 Established patient All pertinent medical history, medications, and allergies were reviewed. General Exam: alert, oriented to person, place, and time, normal affect, well appearing Accompanied by spouse A complete skin exam was offered, pt declined. Areas not examined despite medical recommendation: From the waist down Scalp, Examined , exam limited by hair Head, Face Examined , Exam limited by peres and mustache Neck Examined Chest Examined Back Examined Abdomen Examined Right arm Examined Left arm Examined Hands Examined Digits,nails: Examined Lymphatics: Not examined 1. Capillary angioma Trunk Scattered karimi-red papule(s). The patient was informed that angiomas are benign growths on the the skin. No treatment is necessary. 2. Melanocytic nevus of trunk Trunk Scattered benign appearing, regular brown to light brown melanocytic papules and macules with similar morphology Counseled regarding these benign growths. Rarely, a nevus can develop into malignant melanoma, so any changing nevi should be promptly re-evaluated. 3. Seborrheic keratosis Scalp Stuck on verrucous, marlow-brown papules and plaques. Patient was counseled regarding these benign growths. Removal is normally not necessary, but they may be removed if they are symptomatic or for cosmetic reasons. 4. Actinic keratosis (13) Mid Frontal Scalp, Mid Parietal Scalp (11), Right Forearm - Anterior Erythematous scaly papules Patient was counseled regarding these sun-induced growths that can develop into squamous cell carcinoma if left untreated. Discussed treatment with cryotherapy. It was emphasized that any treated lesions that fail to resolve should be re-evaluated. Cryotherapy performed today; see procedure note Diagnosis: Actinic keratosis Indication: Precancerous Location: see skin exam Consent: Verbal consent was obtained and risks were discussed, including, but not limited to risks of scarring, darker or global president pigmentary changes, recurrence, incomplete removal and infection. Method: Liquid nitrogen was used to treat the lesion(s) with two 5-10 second freeze-thaw cycles. Number of lesions treated: 13 Post-procedure instructions: Instructions were given orally and in writing. The office will be contacted if the lesion fails to resolve despite treatment, or if a side effect develops such as abnormal crusting, scabbing, redness or tenderness Cryotherapy, skin lesion - Mid Frontal Scalp, Mid Parietal Scalp (11), Right Forearm - Anterior 5. History of SCC (squamous cell carcinoma) of skin (2) Left Cheek, Right Frontal Scalp No evidence of recurrence at SCC scar. The patient was counseled that scars from excisional sites of nonmelanoma skin cancers should be monitored closely for recurrence. The patient was instructed to contact the office for any new, changing, or symptomatic moles. The patient was also instructed to contact the office for any new lesions that develop within or around the previous surgery scar. 6. Lentigo simplex (2) Left Shoulder - Anterior, Right Shoulder - Anterior Scattered marlow macules in sun-exposed areas. The patient was informed that lentigines are benign pigmented lesions that occur on sun-exposed and sun-damaged skin. No treatment is necessary. Recommended regular use of broad spectrum sunscreen SPF 30 or higher Next Visit: 6 months, skin check documented in this encounter [facility] 06-20-2024 History of Present illness Narrative Subjective Patient ID: Chiki Juarez is a 79 y.o. male who presents for Post-op HPI This patient presents for recheck of wound infection of the left cheek. Does describe interval improvement of his condition. No longer having any drainage from this region. Patient has undergone prior PET scan revealing evidence of increased activity in the area of his thyroid gland. Review of Systems Patient does describe some induration of the left cheek with no pain or drainage at this time. He is currently finishing off a course of antibiotic. Does continue using topical antibiotic ointment. With voice or swallow. The rest of his review of systems is negative Allergies as of 06/20/2024 (No Known Allergies) Past Medical History: Diagnosis Date Abnormal CT scan 07/02/2023 Asthma-chronic obstructive pulmonary disease overlap syndrome (CMS/HCC) 05/21/2023 B-cell lymphoma (CMS/HCC) 11/23/2018 B12 deficiency 07/13/2017 Benign essential tremor 07/31/2021 Benign prostatic hyperplasia with urinary obstruction 05/21/2023 Bilateral leg edema 08/06/2022 Cancer (CMS/HCC) Cardiac pacemaker in situ 05/23/2022 noted in 07/28/2023 Cardiology Consult Note page 1. added per OP CDI policy. Cerebrovascular accident (CVA) (CMS/HCC) 08/03/2020 Chronic diastolic heart failure (CMS/HCC) 07/28/2023 Noted in 05/21/2023 [place] page 1, added per outpatient CDI policy. Chronic hypoxic respiratory failure (CMS/HCC) 04/15/2024 Chronic kidney disease, stage 3a (HCC) (CMS/HCC) 04/15/2024 Chronic sinusitis 07/02/2023 Complete atrioventricular block (CMS/HCC) 08/03/2020 Compression fracture of thoracic vertebra with routine healing 05/31/2024 Cough 07/17/2021 Decreased ambulation status 09/09/2023 Diffuse large B cell lymphoma (CMS/HCC) 02/21/2013 Dyspnea 07/17/2021 Edema of both upper arms 07/02/2023 Former smoker 05/21/2023 Hearing loss 05/21/2023 High prostate specific antigen (PSA) 05/21/2023 History of B-cell lymphoma 05/21/2023 History of cerebrovascular accident 05/23/2022 History of lymphoma 05/31/2024 History of malignant neoplasm of prostate 05/21/2023 Hyperglycemia 05/31/2024 Hypothyroidism (CMS/HCC) 11/23/2018 Hypoxia 11/23/2018 Kidney stone 05/21/2023 Left temporal lobe infarction (CMS/HCC) 08/03/2020 Lymphoma (CMS/HCC) 05/21/2023 Macrocytic anemia 05/31/2024 noted in 07/21/2023 Cardiology Consult Note page 4. added per OP CDI policy. Malignant neoplasm of prostate (CMS/HCC) 05/21/2023 Mass of leg 04/15/2024 MGUS (monoclonal gammopathy of unknown significance) 09/09/2023 Microscopic hematuria 05/21/2023 Mixed hyperglyceridemia (CMS/HCC) 05/23/2022 Moderate persistent asthma without complication (CMS/HCC) 05/31/2024 Nasal congestion 05/21/2023 Neuropathy, arm 05/21/2023 Obesity due to excess calories 05/31/2024 JUANA (obstructive sleep apnea) 04/15/2024 Other chronic pain 05/31/2024 Poor urinary stream 05/21/2023 Prostate nodule 05/21/2023 Pulmonary hypertension ([facility]) 07/02/2023 Noted in 05/21/2023 [place] page 1, added per outpatient CDI policy. 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[facility]) 07/02/2023 Recurrent pneumonia 07/17/2021 Severe obesity (BMI 35.0-39.9) with comorbidity ([facility]) 08/03/2020 Ventral hernia 05/21/2023 Wheezing 07/02/2023 Current Outpatient Medications: acetaminophen-codeine (Tylenol w/ Codeine #3) 300-30 MG tablet, acetaminophen 300 mg-codeine 30 mg tablet, Disp: , Rfl: albuterol (2.5 MG/3ML) 0.083% nebulizer solution, INHALE 1 VIAL VIA NEBULIZER EVERY 4 HOURS, Disp: , Rfl: albuterol HFA 90 mcg/act inhaler, Inhale 2 puffs Daily as needed, Disp: , Rfl: aspirin 81 MG EC tablet, Take 81 mg by mouth in the morning., Disp: , Rfl: azelastine (Astelin) 0.1 % nasal spray, Administer 1 spray into affected nostril(s) in the morning and 1 spray in the evening., Disp: , Rfl: budesonide (Pulmicort) 0.5 MG/2ML nebulizer solution, USE 1 VIAL VIA NEBULIZER TWICE A DAY, Disp: , Rfl: budesonide (Pulmicort) 1 MG/2ML nebulizer solution, 2 mL, Disp: , Rfl: calcitonin, salmon, (Miacalcin) 200 UNIT/ACT nasal spray, 1 spray 1 (one) time each day at the same time, Disp: , Rfl: calcium carbonate 1500 (600 Ca) MG tablet, every 12 (twelve) hours, Disp: , Rfl: cholecalciferol (Vitamin D-[address]) 25 MCG (1000 UT) tablet, Take 1,000 Units by mouth, Disp: , Rfl: Cyanocobalamin (Vitamin B 12) 100 MCG lozenge, , Disp: , Rfl: cyanocobalamin (Vitamin B-12) 1000 MCG tablet, Take 1,000 mcg by mouth in the morning., Disp: , Rfl: doxycycline (Vibramycin) 100 MG capsule, Take 100 mg by mouth in the morning., Disp: , Rfl: furosemide (Lasix) 40 MG tablet, Take 1 tablet by mouth Daily, Disp: , Rfl: gabapentin (Neurontin) 300 MG capsule, Take 300 mg by mouth at bedtime, Disp: , Rfl: HyperSal 3.5 % nebulizer solution nebulizer solution, Inhale 4 mL in the morning and 4 mL in the evening., Disp: , Rfl: ipratropium (Atrovent) 0.06 % nasal spray, Administer 2 sprays into affected nostril(s) in the morning and 2 sprays in the evening., Disp: , Rfl: ipratropium-albuterol (Duo-Neb) 0.5-2.5 mg/3 mL nebulizer solution, every 6 (six) hours, Disp: , Rfl: levothyroxine (Synthroid, Levoxyl) 100 MCG tablet, Take 100 mcg by mouth Daily, Disp: , Rfl: loratadine (Claritin) 10 MG tablet, Take 1 tablet by mouth Daily, Disp: , Rfl: metoprolol succinate XL (Toprol-XL) 25 MG 24 hr tablet, Take 25 mg by mouth at bedtime, Disp: , Rfl: montelukast (Singulair) 10 MG tablet, Take 10 mg by mouth Daily, Disp: , Rfl: potassium chloride ER (Micro-K) 10 MEQ ER capsule, Take 10 mEq by mouth, Disp: , Rfl: predniSONE (Deltasone) 10 MG tablet, Take 10 mg by mouth in the morning., Disp: , Rfl: Serevent Diskus 50 MCG/ACT aerosol powder , Inhale 1 puff in the morning and 1 puff in the evening., Disp: , Rfl: sodium chloride 7 % nebulizer solution nebulizer solution, INHALE 4 ML VIA NEBULIZER TWO TIMES DAILY, Disp: , Rfl: Spiriva HandiHaler 18 MCG inhalation capsule, , Disp: , Rfl: spironolactone (Aldactone) 50 MG tablet, spironolactone 50 mg tablet, Disp: , Rfl: Tezepelumab-ekko (Tezspire) 210 MG/1.91ML solution auto-injector, Inject 210 mg under the skin every 28 (twenty-eight) days, Disp: , Rfl: Tezspire 210 MG/1.91ML solution auto-injector, , Disp: , Rfl: Past Surgical History: Procedure Laterality Date CT ANGIO HEAD 06/27/[address] ANGIOGRAM NECK 06/27/[address] GUIDED PERCUTANEOUS BIOPSY BONE DEEP 04/01/2019 CT GUIDED PERCUTANEOUS BIOPSY BONE DEEP Social History Socioeconomic History Marital status: Spouse name: Not on file Number of children: Not on file Years of education: Not on file Highest education level: Not on file Occupational History Not on file Tobacco Use Smoking status: Former Types: Cigarettes Passive exposure: Never Smokeless tobacco: Never Vaping Use Vaping status: Never Used Substance and Sexual Activity Alcohol use: Defer Drug use: Defer Sexual activity: Defer Other Topics Concern Not on file Social History Narrative Not on file Social Drivers of Health Financial Resource Strain: Not on file Food Insecurity: Not on file Transportation Needs: Not on file Physical Activity: Not on file Stress: Not on file Social Connections: Not on file Intimate Partner Violence: Unknown (10/08/2023) Received from [facility] [place] Safety & Environment Fear of Current or Ex-Partner: Not on file Emotionally Abused: Not on file Physically Abused: Not on file Sexually Abused: Not on file Physically or Sexually Abused: Not on file Housing Stability: Not on file Objective ENT Physical Exam General Examination: General overview: Normal, age-appropriate, no evidence of distress Head: Normocephalic, area scalp resection healing very nicely. The left cheek is healing well. Residual sutures removed. No evidence of drainage. Eyes: Pupils are equally round and reactive to light and accommodation, extraocular muscles are intact Ears: External ear architecture within normal limits, ear canals are patent, tympanic membranes are intact. Nose: External nose unremarkable, nares patent, septum intact, no evidence of congestion. Oral cavity: Mucosa moist, no evidence of ulcer, mass, or lesion Throat: Clear Neck/thyroid: Neck supple, full range of motion, no cervical lymphadenopathy, no evidence of thyromegaly Thyroid ultrasound: Indication: Thyroid goiter /thyroid nodule(s) Consent: Proper consent is obtained. The procedure risks are explained in detail. Questions were encouraged and answered Anesthesia: No anesthesia given Preparation: The patient was placed in proper position. Patient is prepped in standard fashion. Findings: Ultrasound is completed of the thyroid gland. Gross examination of the thyroid gland reveals no obvious evidence of dominant nodule. Mild thickening of the isthmus. Significant extension to the area below the clavicles is noted. Disposition: The patient tolerated the procedure extremely well. Patient is fully instructed on postprocedure care and follow-up in this office. Lymph nodes: No cervical lymphadenopathy Skin: Warm and dry, no evidence of suspicious lesions, no rash Heart: No jugular venous distention, point of maximal impulse normal Lungs: Good air movement, no audible wheezing, no shortness of breath Chest: Normal shape and expansion Abdomen: Normal, soft, nontender, nondistended Musculoskeletal: Cervical spine normal, full range of motion Extremities: No clubbing, cyanosis, or edema Peripheral pulses: 2+ radial, 2+ carotid Neurologic: Alert and oriented, cranial nerves 2-12 are grossly intact Psych: Alert and oriented, normal affect, no evidence of distress Assessment/Plan documented in this encounter [facility] 06-13-2024 Telephone encounter Note Patient is scheduled 11/15/24 at 1:30 PM Shea Kolb PSS [facility] 06-13-2024 Miscellaneous Notes Patient is scheduled 11/15/24 at 1:30 PM Shea Kolb PSS notified and transferred to [facility] to schedule CT as recommended prior to return visit with [facility]M. Valerie Mayes RN A voicemail was left on Chiki's phone to return our call to schedule a CT for November. Shea Kolb PSS Dr Mayra Berg [facility] called and spoke with BRM yesterday with concerns of PET results: CHEST: * AP window/left hilar mildly avid 0.7 cm lymph node is favored to be reactive, lymphomatous involvement less likely, not entirely excluded. No prior study available for comparison. BRM reviewed and will repeat CT Chest in 6 months. Called and spoke with Dr Berg's office and they will update. Call back number provided with any additional needs or concerns. BRM CT Chest pended for review and sign PSS: Please call to schedule prior to return visit 11/21/24 Valerie Mayes RN documented in this encounter [facility] 06-13-2024 Telephone encounter Note notified and transferred to PSS to schedule CT as recommended prior to return visit with BRM. Valerie Mayes RN [facility] 06-10-2024 Telephone encounter Note A voicemail was left on Chiki's phone to return our call to schedule a CT for November. Shea Kolb PSS [facility] 06-10-[address] Mayra Berg, [facility] called and spoke with BRM yesterday with concerns of PET results: CHEST: * AP window/left hilar mildly avid 0.7 cm lymph node is favored to be reactive, lymphomatous involvement less likely, not entirely excluded. No prior study available for comparison. BRM reviewed and will repeat CT Chest in 6 months. Called and spoke with Dr Berg's office and they will update. Call back number provided with any additional needs or concerns. BRM CT Chest pended for review and sign PSS: Please call to schedule prior to return visit 11/21/24 Valerie Mayes RN [facility] 10-24-2024 History of Present illness Narrative Subjective Patient ID: Chiki Juarez is a 79 y.o. male who presents for Post-op (Post op exc SCC scalp) HPI This patient presents postop excision of scalp lesion and left cheek lesion. Believes his left cheek wound has become infected with purulent drainage and discomfort. Review of Systems Patient has not noticed any fever. Does noticed mild tenderness and drainage from the left cheek wound. Not currently taking any antibiotic. No difficulties from the scalp. Objective ENT Physical Exam The scalp incision is healing quite nicely. Sutures are removed without difficulty. The left cheek does show evidence of significant hyperemia and some mild drainage. The lateral aspect sutures are removed. Assessment/Plan Diagnoses and all orders for this visit: Wound infection Comments: Will start this patient on oral antibiotics. Will continue topical antibiotics. We will see him back in 7-10 days Squamous cell carcinoma of scalp Comments: Healing well, we will see this back as needed Orders: - cefadroxil (Duricef) 500 MG capsule; Take 1 capsule (500 mg) by mouth in the morning and 1 capsule (500 mg) in the evening and 1 capsule (500 mg) before bedtime. Do all this for 10 days. documented in this encounter [facility] 06-05-2024 Note HNO ID: [id number] Author: TYLER DRAPER MD Service: ? Author Type: Physician Type: Progress Notes Filed: 06/08/2024 05:29 Note Text: PATIENT NAME: Chiki Juarez DATE: 06/06/2024 PRIMARY CARE PHYSICIAN: Dr. Pito Patterson OTHER PHYSICIANS: Dr. Mayra Berg ([facility]), Dr. Crawley Portions of this encounter note have been copied from my note from 04/19/2024 and has been updated where appropriate, and reflect my current medical decision making from today. 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 Herrera). INTERIM HISTORY: At the patient's last visit here he had recent radiographic evidence of possible inguinal lymphadenopathy contributing to leg swelling. For this reason a PET scan was done which showed no pathologic lymphadenopathy or other evidence of lymphoma. At his last visit he complained of a skin lesion over his left cheek and was referred to dermatology. 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 He underwent surgical resection per ENT on 06/01/2024. He has had no other significant medical changes. Other than the above he feels well. MEDICATIONS: TEZSPIRE 210 mg/1.91 mL (110 mg/mL) injection albuterol (PROVENTIL) 2.5 mg /3 mL (0.083 %) nebulizer solution albuterol sulfate 2.5 mg/3 mL (0.083 %) solution for nebulization INHALE 1 VIAL VIA NEBULIZER EVERY 4 HOURS potassium chloride SR (MICRO-K) 10 mEq CR [...] 300 mg-codeine 30 mg tablet budesonide (PULMICORT) 1 mg/2 mL nebulizer solution 2 mL. ipratropium-albuterol (DUONEB) 0.5 mg-3 mg(2.5 mg base)/3 [...] intracerebral hemorrhage Hypothyroidism Hypoxemia Multiple myeloma (HCC) Pulmonary edema Stroke (HCC) Thyroid disease aquired due to [...] seizures or tremors PHYSICAL EXAM: Vitals: BP 109/59 Pulse 74 Temp 36.1 ?C (97 ?F) (Temporal) Resp 18 Wt 100.9 kg (222 lb 7.1 oz) SpO2 90% BMI 33.83 kg/m? General appearance: well appearing, alert, in no acute distress, well-hydrated, well nourished Skin: 0.5 cm crusted skin lesion over the left facial area. No evidence of surrounding infection Head: normal (more content not included)... [facility] 06-05-2024 History of Present illness Narrative PATIENT NAME: Chiki Juarez DATE: 06/06/2024 PRIMARY CARE PHYSICIAN: Dr. Pito Patterson OTHER PHYSICIANS: Dr. Mayra Berg ([facility]), Dr. Crawley Portions of this encounter note have been copied from my note from 04/19/2024 and has been updated where appropriate, and reflect my current medical decision making from today. 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 Herrera). INTERIM HISTORY: At the patient's last visit here he had recent radiographic evidence of possible inguinal lymphadenopathy contributing to leg swelling. For this reason a PET scan was done which showed no pathologic lymphadenopathy or other evidence of lymphoma. At his last visit he complained of a skin lesion over his left cheek and was referred to dermatology. 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 He underwent surgical resection per ENT on 06/01/2024. He has had no other significant medical changes. Other than the above he feels well. MEDICATIONS: TEZSPIRE 210 mg/1.91 mL (110 mg/mL) injection albuterol (PROVENTIL) 2.5 mg /3 mL (0.083 %) nebulizer solution albuterol sulfate 2.5 mg/3 mL (0.083 %) solution for nebulization INHALE 1 VIAL VIA NEBULIZER EVERY 4 HOURS potassium chloride SR (MICRO-K) 10 mEq CR [...] 300 mg-codeine 30 mg tablet budesonide (PULMICORT) 1 mg/2 mL nebulizer solution 2 mL. ipratropium-albuterol (DUONEB) 0.5 mg-3 mg(2.5 mg base)/3 [...] intracerebral hemorrhage Hypothyroidism Hypoxemia Multiple myeloma (HCC) Pulmonary edema Stroke (HCC) Thyroid disease aquired due to [...] seizures or tremors PHYSICAL EXAM: Vitals: BP 109/59 Pulse 74 Temp 36.1 C (97 F) (Temporal) Resp 18 Wt 100.9 kg (222 lb 7.1 oz) SpO2 90% BMI 33.83 kg/m General appearance: well appearing, alert, in no acute distress, well-hydrated, well nourished Skin: 0.5 cm crusted skin lesion over the left facial area. No evidence of surrounding infection Head: normal Eyes: Anicteric sclera. Pupils are equally round and reactive to light. Extraocular movements are intact. Ears: negative findings: external ears normal to inspection and palpation Oropharynx: negative Neck: Supple, no adenopathy; thyroid symmetric, normal size Lymph Nodes: No Submandibular, cervical, supraclavicular, axillary, or inguinal lymphadenopathy present Breast: NL Symmetry, No Masses/Tenderness/Discharge, No Skin Changes Back: no tenderness to palpation Lungs: clear to auscultation, no wheezing or rhonchi Heart: Negative. RRR without murmur, gallop, or rubs. No ectopy. Abdomen: Normal abdominal exam, Abdomen soft, non-tender. Bowel sounds normal. No masses, organomegaly Rectal: Not done Extremities: Extremities normal. No deformities, edema, or skin discoloration. Good capillary refill. Musculoskeletal: No joint swelling, deformity, or tenderness. Peripheral pulses: Normal Lymph nodes: No palpable nodes in the supra regular, axillary, or inguinal regions. LABORATORY DATA: Hemoglobin (g/dL) Date Value 04/19/2024 12.3 09/23/2021 11.3 Hematocrit (%) Date Value 04/19/2024 37.6 09/23/2021 36.2 WBC (k/uL) Date Value 04/19/2024 4.44 09/23/2021 3.99 Platelet Count (k/uL) Date Value 04/19/2024 136 09/23/2021 184 RADIOLOGY/OTHER STUDIES: 04/29/2024 PET scan IMPRESSION: HEAD/NECK: * Left cheek slight skin thickening and uptake. Recommend correlation with clinical exam findings. * Diffuse thyroid uptake, often secondary to thyroiditis. Serologic evaluation, as indicated. CHEST: * AP window/left hilar mildly avid 0.7 cm lymph node is favored to be reactive, lymphomatous involvement less likely, not entirely excluded. No prior study available for comparison. ABDOMEN/PELVIS: * No metabolically active disease or splenomegaly. MUSCULOSKELETAL: * No metabolically active disease. 02/01/2024 Bilateral lower extremity Doppscan ([facility]) The RIGHT lower extremity was imaged, assessed by Doppler, and appears patent with no evidence of DVT within the imaged veins. There is evidence of a non-vascularized mass located in the right groin area, measurin.9 cm AP x 3.18 cm Trans x 2.46 cm Sagittal. The LEFT lower extremity was imaged, assessed by Doppler, and appears patent with no evidence of DVT within the imaged veins. There is evidence of a non-vascularized mass located in the left groin area, measurin.9 cm AP x 3 cm Trans x 2.56 cm Sagittal. 12/31/2023 CXR ([facility]) IMPRESSION: 1. No significant interval change and no new or worsening airspace disease. No pleural effusion or pneumothorax. 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 2. Stable cardiomediastinal silhouette. 3. Left chest wall CIED with leads in the right atrium and right ventricle. 4. Unchanged compression deformity in the mid thoracic spine. 09/24/2021 Skeletal bone survey ([facility]) No lytic lesions suggestive of multiple myeloma ASSESSMENT/PLAN: 1. MGUS (monoclonal gammopathy of unknown significance) - ICD9: 273.1, ICD10: D47.2 (primary diagnosis) April 2021 the patient underwent a chest CT for evaluation of shortness of breath, and the scan revealed a T5 compression deformity plus other bony abnormalities suspicious for lytic lesions. For evaluation of myeloma the patient underwent SPEP August 2021 which revealed a low level IgG lambda monoclonal protein. The patient was seen in September 2021 for hematologic evaluation. 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 Repeat SPEP 07/18/2022 revealed resolution of the M protein. Most recent SPEP 04/19/2024 stable with an M protein of 0.00. At this time will continue routine observation. Return in 6 months with repeat labs. Will further evaluate (bone marrow biopsy) as indicated if labs worsen. 2. Macrocytic anemia - ICD9: 281.9, ICD10: D53.9 Since completing chemotherapy for lymphoma the patient has had mild macrocytic anemia and intermittent thrombocytopenia. Differential diagnosis includes prolonged effect of chemotherapy versus MDS versus other systemic disorder. Bone marrow biopsy was considered but the patient declined. Will monitor CBC and further evaluate as indicated if labs worsen. 3. History of malignant neoplasm of prostate (HCC) - ICD9: 185, ICD10: C61 Presenting PSA January 2019 elevated at 10.9. March 16, 2019 random TRUS prostate biopsies with prostate adenocarcinoma, [place] 4+3, 3 cores involved out of 9, cribriform pattern present. Bone scan with a T5 compression fracture. No evidence of other lesions on bone scan or CT abdomen. April 01, 2019 bone biopsy of T5 compression fracture negative for malignancy, April 25-June 28, 2019 treated with EBRT to prostate and pelvis (Dr. Sousa); 79.2 Horan in 44 fractions; PSA yina 0.14 in December 2020. At this time the patient has no evidence of disease. Will monitor PSA and evaluate as indicated if any signs of recurrence. 4. History of diffuse large B-cell lymphoma (HCC) - ICD9: 202.80, ICD10: C83.30 Diagnosed with diffuse large B-cell lymphoma in 2008 (based on cervical node FNA) at the age of 73. Bone marrow biopsy negative for involvement. Cytogenetics normal male 46 XY [20]. The patient received treatment with four cycles of R-CHOP followed by involved field radiation. End of treatment PET scan consistent with complete metabolic response. Due to the suspicion of pathologic inguinal lymphadenopathy the patient underwent a PET scan on 04/29/2024 which was essentially negative. Currently no evidence of disease. Will continue to monitor clinically and restage as indicated if suspicious signs or symptoms develop. 5. COPD, suspected bronchiectasis The patient has a long history of pulmonary symptoms from COPD and possible bronchiectasis. Continue management per PCP and pulmonary (Dr. Mayra Berg at [facility]). 6. History of hypothyroidism Continue management per PCP. 7. Cerebrovascular disease Status post CVA 2019. The patient has residual dysarthria. Continue management per PCP/neurology. 8. Squamous cell skin cancer April 2024 the patient presented with a nonhealing ulcer over the left cheek area. Diagnosed squamous cell skin cancer per dermatology. Status post surgical resection 06/01/2024 per ENT. Currently no evidence of disease. Continue management per dermatology/ENT. Tyler Draper MD CC: Dr. Mayra Berg, Critical Care Rn at [facility] documented in this encounter [facility] 05-31-2024 History of Present illness Narrative Subjective Patient ID: Chiki Juarez is a 79 y.o. male who presents for Suspicious Skin Lesion (New patient : SCC left cheek / right scalp) HPI 79-year-old white male presents today for consultation regarding resection repair of squamous cell carcinoma of the right scalp and left cheek. Tangential biopsies completed confirming squamous cell carcinoma with positive margin. Some discomfort in the area of the right scalp. Review of Systems Patient denies any active bleeding from either area. Does describe some discomfort of the right scalp. Denies any associated fever. Does have a significant history of very poor pulmonary condition. The rest of his review of systems is negative Allergies as of 05/31/2024 (No Known Allergies) Past Medical History: Diagnosis Date Abnormal CT scan 07/02/2023 Asthma-chronic obstructive pulmonary disease overlap syndrome (CMS/HCC) 05/21/2023 B-cell lymphoma (CMS/HCC) 11/23/2018 B12 deficiency 07/13/2017 Benign essential tremor 07/31/2021 Benign prostatic hyperplasia with urinary obstruction 05/21/2023 Bilateral leg edema 08/06/2022 Cancer (CMS/HCC) Cardiac pacemaker in situ 05/23/2022 noted in 07/28/2023 Cardiology Consult Note page 1. added per OP CDI policy. Cerebrovascular accident (CVA) (CMS/HCC) 08/03/2020 Chronic diastolic heart failure (CMS/HCC) 07/28/2023 Noted in 05/21/2023 [place] page 1, added per outpatient CDI policy. Chronic hypoxic respiratory failure (CMS/HCC) 04/15/2024 Chronic kidney disease, stage 3a (HCC) (CMS/HCC) 04/15/2024 Chronic sinusitis 07/02/2023 Complete atrioventricular block (CMS/HCC) 08/03/2020 Compression fracture of thoracic vertebra with routine healing 05/31/2024 Cough 07/17/2021 Decreased ambulation status 09/09/2023 Diffuse large B cell lymphoma (CMS/HCC) 02/21/2013 Dyspnea 07/17/2021 Edema of both upper arms 07/02/2023 Former smoker 05/21/2023 Hearing loss 05/21/2023 High prostate specific antigen (PSA) 05/21/2023 History of B-cell lymphoma 05/21/2023 History of cerebrovascular accident 05/23/2022 History of lymphoma 05/31/2024 History of malignant neoplasm of prostate 05/21/2023 Hyperglycemia 05/31/2024 Hypothyroidism (CMS/HCC) 11/23/2018 Hypoxia 11/23/2018 Kidney stone 05/21/2023 Left temporal lobe infarction (CMS/HCC) 08/03/2020 Lymphoma (CMS/HCC) 05/21/2023 Macrocytic anemia 05/31/2024 noted in 07/21/2023 Cardiology Consult Note page 4. added per OP CDI policy. Malignant neoplasm of prostate (CMS/HCC) 05/21/2023 Mass of leg 04/15/2024 MGUS (monoclonal gammopathy of unknown significance) 09/09/2023 Microscopic hematuria 05/21/2023 Mixed hyperglyceridemia (CMS/HCC) 05/23/2022 Moderate persistent asthma without complication (CMS/HCC) 05/31/2024 Nasal congestion 05/21/2023 Neuropathy, arm 05/21/2023 Obesity due to excess calories 05/31/2024 JUANA (obstructive sleep apnea) 04/15/2024 Other chronic pain 05/31/2024 Poor urinary stream 05/21/2023 Prostate nodule 05/21/2023 Pulmonary hypertension (CMS/HCC) 07/02/2023 Noted in 05/21/2023 [place] page 1, added per outpatient CDI policy. 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CMS/HCC) 07/02/2023 Recurrent pneumonia 07/17/2021 Severe obesity (BMI 35.0-39.9) with comorbidity ([facility]/HCC) 08/03/2020 Ventral hernia 05/21/2023 Wheezing 07/02/2023 Current Outpatient Medications: acetaminophen-codeine (Tylenol w/ Codeine #3) 300-30 MG tablet, acetaminophen 300 mg-codeine 30 mg tablet, Disp: , Rfl: albuterol (2.5 MG/3ML) 0.083% nebulizer solution, INHALE 1 VIAL VIA NEBULIZER EVERY 4 HOURS, Disp: , Rfl: albuterol HFA 90 mcg/act inhaler, Inhale 2 puffs Daily as needed, Disp: , Rfl: aspirin 81 MG EC tablet, Take 81 mg by mouth in the morning., Disp: , Rfl: azelastine (Astelin) 0.1 % nasal spray, Administer 1 spray into affected nostril(s) in the morning and 1 spray in the evening., Disp: , Rfl: budesonide (Pulmicort) 0.5 MG/2ML nebulizer solution, USE 1 VIAL VIA NEBULIZER TWICE A DAY, Disp: , Rfl: budesonide (Pulmicort) 1 MG/2ML nebulizer solution, 2 mL, Disp: , Rfl: calcitonin, salmon, (Miacalcin) 200 UNIT/ACT nasal spray, 1 spray 1 (one) time each day at the same time, Disp: , Rfl: calcium carbonate 1500 (600 Ca) MG tablet, every 12 (twelve) hours, Disp: , Rfl: cholecalciferol (Vitamin D-[address]) 25 MCG (1000 UT) tablet, Take 1,000 Units by mouth, Disp: , Rfl: Cyanocobalamin (Vitamin B 12) 100 MCG lozenge, , Disp: , Rfl: cyanocobalamin (Vitamin B-12) 1000 MCG tablet, Take 1,000 mcg by mouth in the morning., Disp: , Rfl: doxycycline (Vibramycin) 100 MG capsule, Take 100 mg by mouth in the morning., Disp: , Rfl: furosemide (Lasix) 40 MG tablet, Take 1 tablet by mouth Daily, Disp: , Rfl: gabapentin (Neurontin) 300 MG capsule, Take 300 mg by mouth at bedtime, Disp: , Rfl: HyperSal 3.5 % nebulizer solution nebulizer solution, Inhale 4 mL in the morning and 4 mL in the evening., Disp: , Rfl: ipratropium (Atrovent) 0.06 % nasal spray, Administer 2 sprays into affected nostril(s) in the morning and 2 sprays in the evening., Disp: , Rfl: ipratropium-albuterol (Duo-Neb) 0.5-2.5 mg/3 mL nebulizer solution, every 6 (six) hours, Disp: , Rfl: levothyroxine (Synthroid, Levoxyl) 100 MCG tablet, Take 100 mcg by mouth Daily, Disp: , Rfl: loratadine (Claritin) 10 MG tablet, Take 1 tablet by mouth Daily, Disp: , Rfl: metoprolol succinate XL (Toprol-XL) 25 MG 24 hr tablet, Take 25 mg by mouth at bedtime, Disp: , Rfl: montelukast (Singulair) 10 MG tablet, Take 10 mg by mouth Daily, Disp: , Rfl: potassium chloride ER (Micro-K) 10 MEQ ER capsule, Take 10 mEq by mouth, Disp: , Rfl: predniSONE (Deltasone) 10 MG tablet, Take 10 mg by mouth in the morning., Disp: , Rfl: Serevent Diskus 50 MCG/ACT aerosol powder , Inhale 1 puff in the morning and 1 puff in the evening., Disp: , Rfl: sodium chloride 7 % nebulizer solution nebulizer solution, INHALE 4 ML VIA NEBULIZER TWO TIMES DAILY, Disp: , Rfl: Spiriva HandiHaler 18 MCG inhalation capsule, , Disp: , Rfl: spironolactone (Aldactone) 50 MG tablet, spironolactone 50 mg tablet, Disp: , Rfl: Tezepelumab-ekko (Tezspire) 210 MG/1.91ML solution auto-injector, Inject 210 mg under the skin every 28 (twenty-eight) days, Disp: , Rfl: Tezspire 210 MG/1.91ML solution auto-injector, , Disp: , Rfl: Past Surgical History: Procedure Laterality Date CT ANGIO HEAD 06/27/[address] ANGIOGRAM NECK 06/27/[address] GUIDED PERCUTANEOUS BIOPSY BONE DEEP 04/01/2019 CT GUIDED PERCUTANEOUS BIOPSY BONE DEEP Social History Socioeconomic History Marital status: Spouse name: Not on file Number of children: Not on file Years of education: Not on file Highest education level: Not on file Occupational History Not on file Tobacco Use Smoking status: Former Types: Cigarettes Passive exposure: Never Smokeless tobacco: Never Vaping Use Vaping status: Never Used Substance and Sexual Activity Alcohol use: Defer Drug use: Defer Sexual activity: Defer Other Topics Concern Not on file Social History Narrative Not on file Social Drivers of Health Financial Resource Strain: Not on file Food Insecurity: Not on file Transportation Needs: Not on file Physical Activity: Not on file Stress: Not on file Social Connections: Not on file Intimate Partner Violence: Unknown (10/08/2023) Received from [facility] Safety & Environment Fear of Current or Ex-Partner: Not on file Emotionally Abused: Not on file Physically Abused: Not on file Sexually Abused: Not on file Physically or Sexually Abused: Not on file Housing Stability: Not on file Objective ENT Physical Exam General Examination: General overview: Normal, age-appropriate, no evidence of distress, overweight Head: Normocephalic, obvious evidence of biopsy in the region of the right scalp. Biopsy site of the left cheek is also noted. Right scalp measuring 1.5 cm. Left cheek measuring 3 cm in greatest dimension. Eyes: Pupils are equally round and reactive to light and accommodation, extraocular muscles are intact Ears: External ear architecture within normal limits, ear canals are patent, tympanic membranes are intact. Nose: External nose unremarkable, nares patent, septum intact, no evidence of congestion. Oral cavity: Mucosa moist, no evidence of ulcer, mass, or lesion Throat: Clear Neck/thyroid: Neck supple, full range of motion, no cervical lymphadenopathy, no evidence of thyromegaly Lymph nodes: No cervical lymphadenopathy Skin: Warm and dry, evidence of recent biopsy in the region of the right scalp and left cheek Heart: No jugular venous distention, point of maximal impulse normal Lungs: Good air movement, no audible wheezing, no shortness of breath Chest: Normal shape and expansion Abdomen: Normal, soft, nontender, nondistended Musculoskeletal: Cervical spine normal, full range of motion Extremities: No clubbing, cyanosis, or edema Peripheral pulses: 2+ radial, 2+ carotid Neurologic: Alert and oriented, cranial nerves 2-12 are grossly intact Psych: Alert and oriented, normal affect, no evidence of distress Assessment/Plan Diagnoses and all orders for this visit: Squamous cell carcinoma of scalp Comments: Recommend wide excision with frozen section and flap reconstruction 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 Comments: Recommend wide excision with frozen section and complex repair, possible flap Orders: - Ambulatory referral to ENT At this time, I do recommend wide excision of lesions with frozen section and with reconstruction utilizing flap and/or skin graft methods. All of the options, risks, and aspects are discussed in depth. The risks include but are not limited to bleeding, infection, poor wound healing, need for further surgery, nerve injury, serous disability, and Surgery to be completed under local anesthetic as result of his very poor pulmonary status. Patient is at a higher rate of potential for complications as result of his poor medical condition. He fully understands. documented in this encounter [facility] 05-17-2024 Note Patient Education Nutrition BMI for Adults Body mass index (BMI) is a number found using a person's weight and height. BMI can help tell how much of a person's weight is made up of fat. BMI does not measure body fat directly. It is used instead of tests that directly measure body fat, which can be difficult and expensive. What are BMI measurements used for? BMI is useful to: ? Find out if your weight puts you at higher risk for medical problems. ? Help recommend changes, such as in diet and exercise. This can help you reach a healthy weight. BMI screening can be done again to see if these changes are working. How is BMI calculated? Your height and weight are measured. The BMI is found from those numbers. This can be done with U.S. or metric measurements. Note that charts and online BMI calculators are available to help you find your BMI quickly and easily without doing these calculations. To calculate your BMI in U.S. measurements: 1. Measure your weight in pounds (lb). 2. Multiply the number of pounds by 703. ? So, for an adult who weighs 150 lb, multiply that number by 703: 150 x 703, which equals 105,450. 3. Measure your height in inches. Then multiply that number by itself to get a measurement called inches squared. ? So, for an adult who is 70 inches tall, the inches squared measurement is 70 inches x 70 inches, which equals 4,900 inches squared. 4. Divide the total from step 2 (number of lb x 703) by the total from step 3 (inches squared): 105,450 ? 4,900 = 21.5. This is your BMI. To calculate your BMI in metric measurements: 1. Measure your weight in kilograms (kg). ? For this example, the weight is 70 kg. 2. Measure your height in meters (m). Then multiply that number by itself to get a measurement called meters squared. ? So, for an adult who is 1.75 m tall, the meters squared measurement is 1.75 m x 1.75 m, which equals 3.1 meters squared. 3. Divide the number of kilograms (your weight) by the meters squared number. In this example: 70 ? 3.1 = 22.6. This is your BMI. What do the results mean? BMI charts are used to see if you are underweight, normal weight, overweight, or obese. The following guidelines will be used: ? Underweight: BMI less than 18.5. ? Normal weight: BMI between 18.5 and 24.9. ? Overweight: BMI between 25 and 29.9. ? Obese: BMI of 30 or above. BMI is a tool and cannot diagnose a condition. Talk with your health care provider about what your BMI means for you. Keep these notes in mind: ? Weight includes fat and muscle. Someone with a muscular build, such as an athlete, may have a BMI that is higher than 24.9. In cases like these, BMI is not a correct measure of body fat. ? If you have a BMI of 25 or higher, your provider may need to do more testing to find out if excess body fat is the cause. ? BMI is measured the same way for males and females. Females usually have more body fat than males of the same height and weight. Where to find more information For more information about BMI, including tools to quickly find your BMI, go to: ? Centers for Disease Control and Prevention: cdc.gov ? [place] Heart Association: heart.org ? National Heart, Lung, and Blood [place]: nhlbi.nih.gov This information is not intended to replace advice given to you by your health care provider. Make sure you discuss any questions you have with your health care provider. Document Revised: 04/23/2023 Document Reviewed: 04/16/2023 [employer] Patient Education ? 2023 vLine. [facility] 05-13-2024 Note [place] [facility] - [facility] Subjective Chiki Juarez is a 79 y.o. year old male patient being seen for 6 mo follow up c,CANO, hyperlipidemia, and complete AV block s/p PPM. His device was interrogated a few weeks ago in the office. He has completed pulmonary rehab. Says his SOB has slightly improved since last visit in October 2023. His shot polisher at [facility] told him his PFT's had slightly improved also. Patient Active Problem List Diagnosis Complete AV [...] of B-cell lymphoma Hypothyroidism COPD with asthma (CMS/HCC) Kidney stone Left temporal lobe infarction (CMS/HCC) [...] status MGUS (monoclonal gammopathy of unknown significance) Chronic hypoxic respiratory failure (CMS/HCC) Chronic kidney disease, stage 3a (CMS/HCC) Macrocytic anemia Mass of leg JUANA (obstructive sleep apnea) Family History Problem Relation Name Age of Onset Stroke Father Social History Tobacco Use Smoking status: Former Types: Cigarettes Substance Use Topics Alcohol use: Never GILDA Chiki is seen in follow-up. He is a 79-year-old man with prior history of COPD and is currently followed at [facility]. He takes multiple inhalers. In June [...] of breath. He recently was seen at [facility] pulmonary and was recommended to follow-up [...] daily. He was seen by cardiology at [facility] who also agreed that the shortness of breath is not of a cardiac etiology. His shot polisher was treating him with steroids. He also underwent walk test in September 2023 during which his oxygen dropped significantly. He recently underwent further evaluation at [facility] pulmonology and his follow-up PFTs showed improvement. He also had upper and lower extremity duplex venous ultrasounds and VQ scan of the lungs in January 2024 which were negative. Today he reports that he is about the same. He denies chest pain. He is in NYHA class III-IV symptoms. He has mild leg edema. This is improving. Review of Systems Cardiovascular: Positive for dyspnea on exertion and leg swelling (improving). Respiratory: Positive for cough and shortness of breath. Hematologic/Lymphatic: Bruises/bleeds easily. Neurological: Positive for headaches. All other systems reviewed and are negative. Objective Visit Vitals (more content not included)... [facility] 05-03-2024 History of Present illness Narrative Images from the original note were not included. Lesions: Location: Left cheek Duration: 2-3 months Quality: Tender, feels pokey , vega Modifying factors: Non-healing. Does shave the area with a peres juliann. States it looked like an ingrown hair initially, and now looks like this. Never came to a head. History of Lymphoma. Has had radiation on the jaw in the past Associated symptoms: Rough, red bump Treatments: Neosporin, ATB given for another condition- neither helped lesion resolve New patient, referred by Dr. Tyler Draper MD All pertinent medical history, medications, and allergies were reviewed. General Exam: alert , oriented to person, place, and time , normal affect, well appearing, Accompanied by spouse , slightly SOB A focused exam completed based on patient reported problems, see below: 1. Seborrheic keratosis Scalp Stuck on verrucous, marlow-brown papules and plaques. Patient was counseled regarding these benign growths. Removal is normally not necessary, but they may be removed if they are symptomatic or for cosmetic reasons. 2. Neoplasm of unspecified behavior of bone, soft tissue, and skin (3) Left Cheek Erythematous, crusted papule Lesion biopsy Type of biopsy: tangential Informed consent: discussed and consent obtained Informed consent comment: The risks and benefits of the biopsy were discussed. Risks include but are not limited to bleeding, infection, scarring, pain, and nerve damage. An opportunity to ask questions prior to the procedure was permitted and all questions were answered. Patient was prepped and draped in usual sterile fashion: area cleansed with alcohol. Anesthesia: the lesion was anesthetized in a standard fashion Anesthetic: 1% lidocaine w/ epinephrine 1-100,000 buffered w/ 8.4% NaHCO3 Instrument used: DermaBlade Hemostasis achieved with: electrodesiccation Outcome: patient tolerated procedure well Outcome comment: The specimen was placed in a prelabeled formalin container to be sent for pathology Post-procedure details: sterile dressing applied and wound care instructions given Post-procedure details comment: Emphasized need to contact clinic for any signs of infection, uncontrollable bleeding, or complications. Dressing type: bandage Additional details: Photo taken Amount of lidocaine used: 2.0 cc Specimen A - Dermatopathology exam Differential Diagnosis: SCC vs. BCC Check Margins: No Size of lesion: 1.5 x 1.1 cm Right frontal scalp Erythematous papule Lesion biopsy Type of biopsy: tangential Informed consent: discussed and consent obtained Informed consent comment: The risks and benefits of the biopsy were discussed. Risks include but are not limited to bleeding, infection, scarring, pain, and nerve damage. An opportunity to ask questions prior to the procedure was permitted and all questions were answered. Patient was prepped and draped in usual sterile fashion: area cleansed with alcohol. Anesthesia: the lesion was anesthetized in a standard fashion Anesthetic: 1% lidocaine w/ epinephrine 1-100,000 buffered w/ 8.4% NaHCO3 Instrument used: DermaBlade Hemostasis achieved with: electrodesiccation Outcome: patient tolerated procedure well Outcome comment: The specimen was placed in a prelabeled formalin container to be sent for pathology Post-procedure details: sterile dressing applied and wound care instructions given Post-procedure details comment: Emphasized need to contact clinic for any signs of infection, uncontrollable bleeding, or complications. Dressing type: bandage Additional details: Photo taken Amount of lidocaine used: 1.0 cc Specimen B - Dermatopathology exam Differential Diagnosis: BCC vs. SCC Check Margins: No Size of lesion: 1.0 x 1.0 cm Left parietal scalp Heavily pigmented papule Lesion biopsy Type of biopsy: tangential Informed consent: discussed and consent obtained Informed consent comment: The risks and benefits of the biopsy were discussed. Risks include but are not limited to bleeding, infection, scarring, pain, and nerve damage. An opportunity to ask questions prior to the procedure was permitted and all questions were answered. Patient was prepped and draped in usual sterile fashion: area cleansed with alcohol. Anesthesia: the lesion was anesthetized in a standard fashion Anesthetic: 1% lidocaine w/ epinephrine 1-100,000 buffered w/ 8.4% NaHCO3 Instrument used: DermaBlade Hemostasis achieved with: electrodesiccation Outcome: patient tolerated procedure well Outcome comment: The specimen was placed in a prelabeled formalin container to be sent for pathology Post-procedure details: sterile dressing applied and wound care instructions given Post-procedure details comment: Emphasized need to contact clinic for any signs of infection, uncontrollable bleeding, or complications. Dressing type: bandage Additional details: Photo taken Amount of lidocaine used: 1.0 cc Specimen C - Dermatopathology exam Differential Diagnosis: Melanoma vs. Atypical nevus Check Margins: No Size of lesion: 0.3 x 0.3 cm Biopsy today, see procedure note. 3. Hemangioma of skin and subcutaneous tissue Left Lower Vermilion Lip Violaceous papule(s). The patient was informed that angiomas are benign growths on the the skin. No treatment is necessary. 4. Actinic keratosis (3) Mid Parietal Scalp (3) Erythematous scaly papules Patient was counseled regarding these sun-induced growths that can develop into squamous cell carcinoma if left untreated. Discussed treatment with cryotherapy. It was emphasized that any treated lesions that fail to resolve should be re-evaluated. Cryotherapy performed today; see procedure note Diagnosis: Actinic keratosis Indication: Precancerous Location: see skin exam Consent: Verbal consent was obtained and risks were discussed, including, but not limited to risks of scarring, darker or global president pigmentary changes, recurrence, incomplete removal and infection. Method: Liquid nitrogen was used to treat the lesion(s) with two 5-10 second freeze-thaw cycles. Number of lesions treated: 3 Post-procedure instructions: Instructions were given orally and in writing. The office will be contacted if the lesion fails to resolve despite treatment, or if a side effect develops such as abnormal crusting, scabbing, redness or tenderness Cryotherapy, skin lesion - Mid Parietal Scalp (3) Next Visit: pending biopsy results, 2-3 mo th FBSE documented in this encounter [facility] 04-29-2024 History of Present illness Narrative Radiology Service Progress Note DATE OF SERVICE: April 29, 2024 TIME: 1:35 PM PATIENT IDENTITY VERIFICATION COMPLETED USING TWO (2) STANDARD IDENTIFIERS: Name and Date of confirmed by patient verbally. FALL SCREENING: Has the patient had 2 falls in the last year or 1 fall with injury or currently using an Ambulatory Assistive Device (Walker, Cane, Wheelchair, Crutches, etc.)? No PATIENT GENDER DATA: Male EXAM: CT -CONTRAST INDUCED NEPHROPATHY RISK FACTORS: Not applicable CREATININE: Creatinine Date Value Ref Range Status 04/19/2024 1.37 (H) 0.73 - 1.22 mg/dL Final Comment: Corrected result: Previously reported as 1.36 mg/dL on 04/19/2024 at 2:41 PM EDT. 01/21/2024 1.31 (H) 0.73 - 1.22 mg/dL Final 07/23/2023 1.33 (H) 0.73 - 1.22 mg/dL Final Estimated Glomerular Filtration Rate Date Value Ref Range Status 04/19/2024 53 (L) >=60 mL/min/1.73m Final Comment: Estimated Glomerular Filtration Rate (eGFR) is calculated using the 2020 CKD-EPI creatinine equation. This equation utilizes serum creatinine, sex, and age as parameters. The creatinine assay has traceable calibration to isotope dilution-mass spectrometry. Refer to KDIGO guidelines for clinical interpretation. In patients with unstable renal function, e.g. those with acute kidney injury, the eGFR may not accurately reflect actual GFR. Corrected result: Previously reported as 54 mL/min/1.73m on 04/19/2024 at 2:41 PM EDT. eGFR- Date Value Ref Range Status 09/23/2021 >60 Final P.O.C.T. RESULTS: N/A April 29, 2024 TREATMENT: N/A IV SITE: Ambulatory: A peripheral IV was started in the Left antecubital site with a Angio cath: 22 gauge. IV SITE APPEARANCE: Clean,Dry and Intact SIGNATURE: Gloria Weinberg RN PATIENT NAME: Chiki Juarez DATE: April 29, 2024 TIME: 1:35 PM RADIOLOGY SERVICE PROGRESS NOTE SERVICE DATE: 04/29/2024 SERVICE TIME: 1:44 PM PATIENT IDENTITY VERIFICATION COMPLETED USING TWO (2) STANDARD IDENTIFIERS: Name and Date of confirmed by patient verbally POST EXAM PIV STATUS: Discontinued PROCEDURE TYPE: NM INJECT: PET/CT BODY SCAN. 14.0 mCi F18 FDG. No other medications given.. ADMINISTRATION TIME: 1333 PATIENT DISCHARGED TO: Ambulatory patient, left [place] department area. A Diagnostic radioactive procedure has taken place, with no further precautions necessary other than routine body substance precautions. More information regarding radiation safety can be found using this link: [email or web address] [email or web address] [email or web address] SIGNATURE: RT Sonya(Melodie) PATIENT NAME: Chiki Juarez DATE: April 29, 2024 TIME: 1:44 PM PAGER/CONTACT #: documented in this encounter [facility] 04-29-2024 Note HNO ID: [id number] Author: GLORIA WEINBERG RN Service: ? Author Type: Registered Nurse Type: Progress Notes Filed: 04/29/2024 13:35 Note Text: Radiology Service Progress Note DATE OF SERVICE: April 29, 2024 TIME: 1:35 PM PATIENT IDENTITY VERIFICATION COMPLETED USING TWO (2) STANDARD IDENTIFIERS: Name and Date of confirmed by patient verbally. FALL SCREENING: Has the patient had 2 falls in the last year or 1 fall with injury or currently using an Ambulatory Assistive Device (Walker, Cane, Wheelchair, Crutches, etc.)? No PATIENT GENDER DATA: Male EXAM: CT -CONTRAST INDUCED NEPHROPATHY RISK FACTORS: Not applicable CREATININE: Creatinine Date Value Ref Range Status 04/19/2024 1.37 (H) 0.73 - 1.22 mg/dL Final Comment: Corrected result: Previously reported as 1.36 mg/dL on 04/19/2024 at 2:41 PM EDT. 01/21/2024 1.31 (H) 0.73 - 1.22 mg/dL Final 07/23/2023 1.33 (H) 0.73 - 1.22 mg/dL Final Estimated Glomerular Filtration Rate Date Value Ref Range Status 04/19/2024 53 (L) >=60 mL/min/1.73m? Final Comment: Estimated Glomerular Filtration Rate (eGFR) is calculated using the 2020 CKD-EPI creatinine equation. This equation utilizes serum creatinine, sex, and age as parameters. The creatinine assay has traceable calibration to isotope dilution-mass spectrometry. Refer to KDIGO guidelines for clinical interpretation. In patients with unstable renal function, e.g. those with acute kidney injury, the eGFR may not accurately reflect actual GFR. Corrected result: Previously reported as 54 mL/min/1.73m? on 04/19/2024 at 2:41 PM EDT. eGFR- Date Value Ref Range Status 09/23/2021 >60 Final P.O.C.T. RESULTS: N/A April 29, 2024 TREATMENT: N/A IV SITE: Ambulatory: A peripheral IV was started in the Left antecubital site with a Angio cath: 22 gauge. IV SITE APPEARANCE: Clean,Dry and Intact SIGNATURE: Gloria Weinberg RN PATIENT NAME: Chiki Juarez DATE: April 29, 2024 TIME: 1:35 PM [facility] 04-29-2024 Note HNO ID: [id number] Author: COREY DONALDSON RT(R) Service: ? Author Type: Technologist Type: Progress Notes Filed: 04/29/2024 13:44 Note Text: RADIOLOGY SERVICE PROGRESS NOTE SERVICE DATE: 04/29/2024 SERVICE TIME: 1:44 PM PATIENT IDENTITY VERIFICATION COMPLETED USING TWO (2) STANDARD IDENTIFIERS: Name and Date of confirmed by patient verbally POST EXAM PIV STATUS: Discontinued PROCEDURE TYPE: NM INJECT: PET/CT BODY SCAN. 14.0 mCi F18 FDG. No other medications given.. ADMINISTRATION TIME: 1333 PATIENT DISCHARGED TO: Ambulatory patient, left [place] department area. A Diagnostic radioactive procedure has taken place, with no further precautions necessary other than routine body substance precautions. More information regarding radiation safety can be found using this link: [email or web address] [email or web address] 20Diagnostic%20Nuclear%[email or web address] [email or web address] SIGNATURE: RT Sonya(R) PATIENT NAME: Chiki Juarez DATE: April 29, 2024 TIME: 1:44 PM PAGER/CONTACT #: [facility] 04-26-2024 Telephone encounter Note Patient is scheduled with MARY Simmons on 05/03/24 @ 11:00. [facility] 04-26-2024 Miscellaneous Notes Patient is scheduled with MARY Simmons on 05/03/24 @ 11:00. Records faxed to [facility] D[facility]. Rhona: Information ready for you. Jennie Velasquez Please ref patient to [facility]. Dx Skin Lesion blaise facial area. Their office to call the patient to schedule/ Rhona, Please fax records Julius, Please follow up on this appt. documented in this encounter [facility] 04-22-2024 Hospital Discharge instructions Patient Education 04/22/2024 10:35:50 Prostate Cancer Screening Prostate Cancer Screening Prostate cancer screening is testing that is done to check for the presence of prostate cancer in men. The prostate gland is a walnut-sized gland that is located below the bladder and in front of the rectum in males. The function of the prostate is to add fluid to semen during ejaculation. Prostate cancer is one of the most common types of cancer in men. Who should have prostate cancer screening? Screening recommendations vary based on age and other risk factors, as well as between the professional organizations who make the recommendations. In general, screening is recommended if: You are age 50 to 70 and have an average risk for prostate cancer. You should talk with your health care provider about your need for screening and how often screening should be done. Because most prostate cancers are slow growing and will not cause , screening in this age group is generally reserved for men who have a 10- to 15-year life expectancy. You are younger than age 50, and you have these risk factors: ?Having a father, brother, or uncle who has been diagnosed with prostate cancer. The risk is higher if your family member's cancer occurred at an early age or if you have multiple family members with prostate cancer at an early age. ?Being a male who is Black or is of [place] or sub-Saharan descent. In general, screening is not recommended if: You are younger than age 40. You are between the ages of 40 and 49 and you have no risk factors. You are 70 years of age or older. At this age, the risks that screening can cause are greater than the benefits that it may provide. If you are at high risk for prostate cancer, your health care provider may recommend that you have screenings more often or that you start screening at a younger age. How is screening for prostate cancer done? The recommended prostate cancer screening test is a blood test called the prostate-specific antigen (PSA) test. PSA is a protein that is made in the prostate. As you age, your prostate naturally produces more PSA. Abnormally high PSA levels may be caused by: Prostate cancer. An enlarged prostate that is not caused by cancer (benign prostatic hyperplasia, or BPH). This condition is very common in older men. A prostate gland infection (prostatitis) or urinary tract infection. Certain medicines such as male hormones (like testosterone) or other medicines that raise testosterone levels. A rectal exam may be done as part of prostate cancer screening to help provide information about the size of your prostate gland. When a rectal exam is performed, it should be done after the PSA level is drawn to avoid any effect on the results. Depending on the PSA results, you may need more tests, such as: A physical exam to check the size of your prostate gland, if not done as part of screening. Blood and imaging tests. A procedure to remove tissue samples from your prostate gland for testing (biopsy). This is the only way to know for certain if you have prostate cancer. What are the benefits of prostate cancer screening? Screening can help to identify cancer at an early stage, before symptoms start and when the cancer can be treated more easily. There is a small chance that screening may lower your risk of dying from prostate cancer. The chance is small because prostate cancer is a slow-growing cancer, and most men with prostate cancer from a different cause. What are the risks of prostate cancer screening? The main risk of prostate cancer screening is diagnosing and treating prostate cancer that would never have caused any symptoms or problems. This is called overdiagnosisand overtreatment. PSA screening cannot tell you if your PSA is high due to cancer or a different cause. A prostate biopsy is the only procedure to diagnose prostate cancer. Even the results of a biopsy may not tell you if your cancer needs to be treated. Slow-growing prostate cancer may not need any treatment other than monitoring, so diagnosing and treating it may cause unnecessary stress or other side effects. Questions to ask your health care provider When should I start prostate cancer screening? What is my risk for prostate cancer? How often do I need screening? What type of screening tests do I need? How do I get my test results? What do my results mean? Do I need treatment? Where to find more information The [place] [employer]: www.cancer.org [place] [employer]: www.auanet.org Contact a health care provider if: You have difficulty urinating. You have pain when you urinate or ejaculate. You have blood in your urine or semen. You have pain in your back or in the area of your prostate. Summary Prostate cancer is a common type of cancer in men. The prostate gland is located below the bladder and in front of the rectum. This gland adds fluid to semen during ejaculation. Prostate cancer screening may identify cancer at an early stage, when the cancer can be treated more easily and is less likely to have spread to other areas of the body. The prostate-specific antigen (PSA) test is the recommended screening test for prostate cancer, but it has associated risks. Discuss the risks and benefits of prostate cancer screening with your health care provider. If you are age 70 or older, the risks that screening can cause are greater than the benefits that it may provide. This information is not intended to replace advice given to you by your health care provider. Make sure you discuss any questions you have with your health care provider. Document Revised: 01/27/2022 Document Reviewed: 01/27/2022 [employer] Patient Education 2023 vLine. Follow Up Care 03/09/2023 12:17:11 With:MIKE VENTURA, Oni Sewell, URL Address: [facility] [address] [place] [address]- [phone] When: Unknown [facility] 04-22-2024 Note Patient Education Oncology Prostate Cancer Screening Prostate cancer screening is testing that is done to check for the presence of prostate cancer in men. The prostate gland is a walnut-sized gland that is located below the bladder and in front of the rectum in males. The function of the prostate is to add fluid to semen during ejaculation. Prostate cancer is one of the most common types of cancer in men. Who should have prostate cancer screening? Screening recommendations vary based on age and other risk factors, as well as between the professional organizations who make the recommendations. In general, screening is recommended if: ? You are age 50 to 70 and have an average risk for prostate cancer. You should talk with your health care provider about your need for screening and how often screening should be done. Because most prostate cancers are slow growing and will not cause , screening in this age group is generally reserved for men who have a 10- to 15-year life expectancy. ? You are younger than age 50, and you have these risk factors: ? Having a father, brother, or uncle who has been diagnosed with prostate cancer. The risk is higher if your family member's cancer occurred at an early age or if you have multiple family members with prostate cancer at an early age. ? Being a male who is Black or is of [place] or sub-Saharan descent. In general, screening is not recommended if: ? You are younger than age 40. ? You are between the ages of 40 and 49 and you have no risk factors. ? You are 70 years of age or older. At this age, the risks that screening can cause are greater than the benefits that it may provide. If you are at high risk for prostate cancer, your health care provider may recommend that you have screenings more often or that you start screening at a younger age. How is screening for prostate cancer done? The recommended prostate cancer screening test is a blood test called the prostate-specific antigen (PSA) test. PSA is a protein that is made in the prostate. As you age, your prostate naturally produces more PSA. Abnormally high PSA levels may be caused by: ? Prostate cancer. ? An enlarged prostate that is not caused by cancer (benign prostatic hyperplasia, or BPH). This condition is very common in older men. ? A prostate gland infection (prostatitis) or urinary tract infection. ? Certain medicines such as male hormones (like testosterone) or other medicines that raise testosterone levels. A rectal exam may be done as part of prostate cancer screening to help provide information about the size of your prostate gland. When a rectal exam is performed, it should be done after the PSA level is drawn to avoid any effect on the results. Depending on the PSA results, you may need more tests, such as: ? A physical exam to check the size of your prostate gland, if not done as part of screening. ? Blood and imaging tests. ? A procedure to remove tissue samples from your prostate gland for testing (biopsy). This is the only way to know for certain if you have prostate cancer. What are the benefits of prostate cancer screening? ? Screening can help to identify cancer at an early stage, before symptoms start and when the cancer can be treated more easily. ? There is a small chance that screening may lower your risk of dying from prostate cancer. The chance is small because prostate cancer is a slow-growing cancer, and most men with prostate cancer from a different cause. What are the risks of prostate cancer screening? The main risk of prostate cancer screening is diagnosing and treating prostate cancer that would never have caused any symptoms or problems. This is called overdiagnosisand overtreatment. PSA screening cannot tell you if your PSA is high due to cancer or a different cause. A prostate biopsy is the only procedure to diagnose prostate cancer. Even the results of a biopsy may not tell you if your cancer needs to be treated. Slow-growing prostate cancer may not need any treatment other than monitoring, so diagnosing and treating it may cause unnecessary stress or other side effects. Questions to ask your health care provider ? When should I start prostate cancer screening? ? What is my risk for prostate cancer? ? How often do I need screening? ? What type of screening tests do I need? ? How do I get my test results? ? What do my results mean? ? Do I need treatment? Where to find more information ? The [place] Cancer Society: www.cancer.org ? [place] [employer]: www.auanet.org Contact a health care provider if: ? You have difficulty urinating. ? You have pain when you urinate or ejaculate. ? You have blood in your urine or semen. ? You have pain in your back or in the area of your prostate. Summary ? Prostate cancer is a common type of cancer in men. The prostate gland is located below the bladder and in front of the rectum. (more content not included)... [facility] 04-20-2024 Telephone encounter Note Records faxed to [facility] Dermatology. [facility] 04-20-2024 Telephone encounter Note Rhona: Information ready for you. Jennie Velasquez [facility] 04-19-2024 Telephone encounter Note Please ref patient to [facility] Dermatology. Dx Skin Lesion blaise facial area. Their office to call the patient to schedule/ Rhona, Please fax records Julius, Please follow up on this appt. [facility] 04-18-2024 Note HNO ID: [id number] Author: TYLER DRAPER MD Service: ? Author Type: Physician Type: Progress Notes Filed: 04/20/2024 09:45 Note Text: PATIENT NAME: Chiki Juarez DATE: 04/19/2024 PRIMARY CARE PHYSICIAN: Dr. Pito Patterson OTHER PHYSICIANS: Dr. Mayra Berg ([facility]) Portions of this encounter note have been copied from my note from 07/30/2023 and has been updated where appropriate, and reflect my current medical decision making from today. CC: This is a 78 year old male with a history of MGUS, seen for scheduled follow-up (prior patient of Dr. Herrera). INTERIM HISTORY: Since the patient's last visit here he followed up with his shot polisher at [facility] for 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 For evaluation of chronic leg swelling he underwent bilateral lower extremity Doppler scans on 02/01/2024 which revealed no evidence of DVT, but non-vascularized masses in both inguinal areas (suspected lymph nodes). With supportive measures his leg swelling has improved slightly. He denies any pain in the area or evidence of recent infection. His only other complaint today is a nonhealing ulcer over his left cheek area. He believes he may have cut the area while shaving but it has not healed over the past several months. He has not been evaluated by dermatology. Otherwise no significant clinical changes. No recent fevers, night sweats or weight loss. 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 HEMATOLOGY/LYMPHOLOGY: Neg (more content not included)... [facility] 04-18-2024 History of Present illness Narrative PATIENT NAME: Chiki Juarez DATE: 04/19/2024 PRIMARY CARE PHYSICIAN: Dr. Pito Patterson OTHER PHYSICIANS: Dr. Mayra Berg ([facility]) Portions of this encounter note have been copied from my note from 07/30/2023 and has been updated where appropriate, and reflect my current medical decision making from today. CC: This is a 78 year old male with a history of MGUS, seen for scheduled follow-up (prior patient of Dr. Herrera). INTERIM HISTORY: Since the patient's last visit here he followed up with his shot polisher at [facility] for 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 For evaluation of chronic leg swelling he underwent bilateral lower extremity Doppler scans on 02/01/2024 which revealed no evidence of DVT, but non-vascularized masses in both inguinal areas (suspected lymph nodes). With supportive measures his leg swelling has improved slightly. He denies any pain in the area or evidence of recent infection. His only other complaint today is a nonhealing ulcer over his left cheek area. He believes he may have cut the area while shaving but it has not healed over the past several months. He has not been evaluated by dermatology. Otherwise no significant clinical changes. No recent fevers, night sweats or weight loss. MEDICATIONS: albuterol (PROVENTIL) 2.5 mg /3 mL [...] Spironolactone PAST MEDICAL HISTORY: PAST MEDICAL HISTORY No date: Acute maxillary sinusitis No date: Cancer ([facility]) Comment: Lymphoma No date: Chronic bronchitis with emphysema No date: COPD (chronic obstructive pulmonary disease) ([facility]) No date: COVID No date: Cystic fibrosis gene carrier No date: Dysarthria following nontraumatic intracerebral hemorrhage No date: Hypothyroidism No date: Hypoxemia No date: Multiple myeloma ([facility]) No date: Pulmonary edema No date: Stroke ([facility]) No date: Thyroid disease 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 No evidence of surrounding infection Head: normal Eyes: Anicteric sclera. Pupils are equally round and reactive to light. Extraocular movements are intact. Ears: negative findings: external ears normal to inspection and palpation Oropharynx: negative Neck: Supple, no adenopathy; thyroid symmetric, normal size Lymph Nodes: No Submandibular, cervical, supraclavicular, axillary, or inguinal lymphadenopathy present Breast: NL Symmetry, No Masses/Tenderness/Discharge, No Skin Changes Back: no tenderness to palpation Lungs: clear to auscultation, no wheezing or rhonchi Heart: Negative. RRR without murmur, gallop, or rubs. No ectopy. Abdomen: Normal abdominal exam, Abdomen soft, non-tender. Bowel sounds normal. No masses, organomegaly Rectal: Not done Extremities: Extremities normal. No deformities, edema, or skin discoloration. Good capillary refill. Musculoskeletal: No joint swelling, deformity, or tenderness. Peripheral pulses: Normal Lymph nodes: No palpable nodes in the supra regular, axillary, or inguinal regions. LABORATORY DATA: Hemoglobin (g/dL) Date Value 01/21/2024 11.4 09/23/2021 11.3 Hematocrit (%) Date Value 01/21/2024 35.7 09/23/2021 36.2 WBC (k/uL) Date Value 01/21/2024 3.65 09/23/2021 3.99 Platelet Count (k/uL) Date Value 01/21/2024 151 09/23/2021 184 RADIOLOGY/OTHER STUDIES: 02/01/2024 Bilateral lower extremity Doppscan ([facility]) The RIGHT lower extremity was imaged, assessed by Doppler, and appears patent with no evidence of DVT within the imaged veins. There is evidence of a non-vascularized mass located in the right groin area, measurin.9 cm AP x 3.18 cm Trans x 2.46 cm Sagittal. The LEFT lower extremity was imaged, assessed by Doppler, and appears patent with no evidence of DVT within the imaged veins. There is evidence of a non-vascularized mass located in the left groin area, measurin.9 cm AP x 3 cm Trans x 2.56 cm Sagittal. 12/31/2023 CXR ([facility]) IMPRESSION: 1. No significant interval change and no new or worsening airspace disease. No pleural effusion or pneumothorax. 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 2. Stable cardiomediastinal silhouette. 3. Left chest wall CIED with leads in the right atrium and right ventricle. 4. Unchanged compression deformity in the mid thoracic spine. 09/24/2021 Skeletal bone survey ([facility]) No lytic lesions suggestive of multiple myeloma ASSESSMENT/PLAN: 1. MGUS (monoclonal gammopathy of unknown significance) - ICD9: 273.1, ICD10: D47.2 (primary diagnosis) April 2021 the patient underwent a chest CT for evaluation of shortness of breath, and the scan revealed a T5 compression deformity plus other bony abnormalities suspicious for lytic lesions. For evaluation of myeloma the patient underwent SPEP August 2021 which revealed a low level IgG lambda monoclonal protein. The patient was seen in September 2021 for hematologic evaluation. 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 Repeat SPEP 07/18/2022 revealed resolution of the M protein. Most recent SPEP 01/21/2024 revealed a low level M protein at 0.10. Currently the patient is clinically stable. Given his relatively stable SPEP we will continue observation. Repeat labs today. Will further evaluate (bone marrow biopsy) as indicated if labs worsen. 2. Macrocytic anemia - ICD9: 281.9, ICD10: D53.9 Since completing chemotherapy for lymphoma the patient has had mild macrocytic anemia and intermittent thrombocytopenia. Differential diagnosis includes prolonged effect of chemotherapy versus MDS versus other systemic disorder. Bone marrow biopsy was considered but the patient declined. Will monitor CBC and further evaluate as indicated if labs worsen. 3. History of malignant neoplasm of prostate (HCC) - ICD9: 185, ICD10: C61 Presenting PSA January 2019 elevated at 10.9. March 16, 2019 random TRUS prostate biopsies with prostate adenocarcinoma, Aquiles 4+3, 3 cores involved out of 9, cribriform pattern present. Bone scan with a T5 compression fracture. No evidence of other lesions on bone scan or CT abdomen. April 01, 2019 bone biopsy of T5 compression fracture negative for malignancy, April 25-June 28, 2019 treated with EBRT to prostate and pelvis (Dr. Sousa); 79.2 Horan in 44 fractions; PSA yina 0.14 in December 2020. At this time the patient has no evidence of disease. Will monitor PSA, and evaluate as indicated if any signs of recurrence. 4. History of diffuse large B-cell lymphoma (HCC) - ICD9: 202.80, ICD10: C83.30 Diagnosed with diffuse large B-cell lymphoma in 2007 (based on cervical node FNA) at the age of 73. Bone marrow biopsy negative for involvement. Cytogenetics normal male 46 XY [20]. The patient received treatment with four cycles of R-CHOP followed by involved field radiation. End of treatment PET scan consistent with complete metabolic response. Will monitor clinically, and evaluate as indicated if suspicious signs or symptoms develop. 5. COPD, suspected bronchiectasis The patient has a long history of pulmonary symptoms from COPD and possible bronchiectasis. Continue management per PCP and pulmonary (Dr. Mayra Berg at [facility]). 6. History of hypothyroidism Continue management per PCP. 7. Cerebrovascular disease Status post CVA 2019. The patient has residual dysarthria. Continue management per PCP/neurology. 8. Skin lesion on face Nonhealing ulcer over the left cheek area. Differential diagnosis includes low-grade skin cancer. Will refer to dermatology for evaluation and management. 9. Lymphadenopathy For evaluation of chronic leg swelling the patient underwent bilateral lower extremity Doppler scans on 02/01/2024 which revealed no evidence of DVT, but non-vascularized masses in both inguinal areas (suspected lymph nodes). Given the patient's history of lymphoma and prostate cancer differential diagnosis includes recurrent lymphoma metastatic carcinoma, and reactive lymphadenopathy. Will further evaluate with a PET scan. Temporary return visit here in 6 weeks for follow-up and continue management. Tyler Draper MD CC: Dr. Mayra Berg, Critical Care Rn at [facility] documented in this encounter [facility] 02-15-2024 Note Patient Education Nephrology Food Basics [...] ? Vegetable juice. ? Boxed mixes or [id number] boxed meals and side dishes. ? Bottled [...] blood glucose regula (more content not included)... [facility] 02-02-2024 Telephone encounter Note Pt informed of BRM message and denies any questions, needs or concerns at this time. Appointment verified. Valerie Mayes RN [facility] 02-02-2024 Miscellaneous Notes Pt informed of BRM message and denies any questions, needs or concerns at this time. Appointment verified. Valerie Mayes RN ----- Message from Tyler Draper MD sent at 02/02/2024 8:08 AM EDT ----- Please inform the patient that his labs are stable. We will continue observation and see him back as scheduled. documented in this encounter [facility] 02-02-2024 Telephone encounter Note ----- Message from Tyler Draper MD sent at 02/02/2024 8:08 AM EDT ----- Please inform the patient that his labs are stable. We will continue observation and see him back as scheduled. [facility] 10-19-2023 Note [facility] Subjective Chiki Juarez is a 78 y.o. year old male patient being seen for follow up right heart cath performed on 09/17/2023. He's taking lasix once daily and says his LE edema is better. Saw cardiology at [facility] shortly after [facility]. Denies chest pain, palpitations, [...] of COPD and is currently followed at [facility]. He takes multiple inhalers. In June [...] of breath. He recently was seen at [facility] pulmonary and was recommended to follow-up [...] daily. He was seen by cardiology at [facility] who also agreed that the shortness of breath is not of a cardiac etiology. His shot polisher is currently treating him with steroids. He [...] light. Neck: Thyroid: (more content not included)... [facility] 09-17-2023 Note Patient: Chiki Whyte iger Procedure Information Date/Time: 09/17/23 1100 Procedure: Right heart cath Location: [facility]EIGN L[facility]U[employer] STENOGRAPHER 2 BIPLANE / [facility] (Cath) Providers: Daniella Easton MD [...] Plan discussed with fellow. Additional Equipment Requests [facility] 09-09-2023 Note [facility] Subjective Chiki Juarez is a [...] of COPD and is currently followed at [facility]. He takes multiple inhalers. In June [...] of breath. He recently was seen at [facility] pulmonary and was recommended to follow-up [...] Skin is w (more content not included)... [facility] 07-30-2023 Note HNO ID: [id number] Author: Tyler Draper MD Service: ? Author [...] to light. Extraocul (more content not included)... [facility] 07-28-2023 Note [place] [facility] Subjective Chiki Juarez is a 78 y.o. year old male patient being seen per Dr. Mayra Berg of pulmonary medicine at [facility] to discuss possible increase in diuretic. [...] of COPD and is currently followed at [facility]. He takes multiple inhalers. In June [...] of breath. He recently was seen at [facility] pulmonary and was recommended to follow-up [...] is alert and (more content not included)... [facility] 05-21-2023 Note Cardiovascular Medic [facility] SUBJECTIVE Chief Complaint Patient presents [...] 46. [employer] (more content not included)... [facility] 05-21-2023 Note Patient here for 6 m o follow up NSVT, chronic diastolic heart failure, pulmonary hypertension, and complete AV block. Device was routinely interrogated in Mar 2023. Denies chest pain and palpitations. Sees Dr. Berg at [facility] for pulmonology. Doing well from cardiac standpoint. Review of Systems Cardiovascular: Positive for dyspnea on exertion and leg swelling (resolves by morning). Respiratory: Positive for shortness of breath. Hematologic/Lymphatic: Bruises/bleeds easily. Neurological: Positive for headaches and light-headedness (positional). All other systems reviewed and are negative. [facility] 03-31-2023 Hospital Discharge instructions Patient Education [...] With:Oni MCKEON Address: [facility] [address] [place] [address] Business (1) When:03/31/2024 11:58:05 Comments:With a renal ultrasound [facility] 03-09-2023 Hospital Discharge instructions Patient Education 03/09/2023 [...] urethra. Follow these instructions at home: Take rokw-tax-nuvnzjs and prescription medicines only as told by [...] provider. Document Revised: 02/19/2022 Document Reviewed: 02/19/2022 [employer] Patient Education 2022 vLine. Follow Up Care 02/13/2023 11:39:29 With:MIKE VENTURA, Oni Sewell, URL Address: [facility] [address], [place] [phone] When: Unknown Comments:schedule cysto and renal US1 yr w/ PSA [facility] 08-05-2022 Miscellaneous Notes Informed pt of Dr Draper's message. Pt verbalized understanding and denies further needs at this time. Aby Hernandez RN ----- Message from Tyler Draper MD sent at 08/04/2022 12:29 PM EST ----- Please inform the patient that his PSA is stable at 0.26. We will continue as planned. ORESTES Encarnacion documented in this encounter [facility] 07-25-2022 Miscellaneous Notes Spoke to patient [...] awhile please advise documented in this encounter [facility] 01-16-2022 History of Present illness Narrative [...] x2 and pneumonia, following pulmonology team at [facility]. He has a family history significant [...] Cerebrovascular accident, 2019, residual dysarthria COVID-19 in 2020, 2 episodes, on home oxygen Lymphoma, large B cell treated with R-CHOP x 4 and radiation in 2007 with PET CR ?Bronchiectasis, follows pulmonology at [facility] Possible cystic fibrosis, follows pulmonology at [facility], genetic testing pending Previous surgeries include a pacemaker in 2019. No family history of hematologic or oncologic issues but significant for cystic fibrosis in brother and nephew; granddaughter is a carrier of cystic fibrosis. Patient lives in [place], [place] with his , Nicolasa. He has 4 children. He has a 52-vhmq-izwj smoking history and quit in 1986. 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 MEDICATIONS AND ALLERGIES: Reviewed PHYSICAL EXAM NA LABORATORY, IMAGING AND PATHOLOGY December 2021 M spike 0.08 g/dL, IgG lambda, ratio 1.6 Bone Imagin05-15-21 CT scans with lytic lesions in the ribs unchanged since 2018 2 04-07 bone survey negative Bone Marrow Biopsy: [...] Thus, a bone marrow biopsy would not cell changer and it is okay to hold [...] CC: Will Sherwood documented in this encounter [facility] 01-09-2022 History of Present illness Narrative [...] x2 and pneumonia, following pulmonology team at [facility]. He has a family history significant [...] with PET CR ?Bronchiectasis, follows pulmonology at [facility] Possible cystic fibrosis, follows pulmonology at [facility], genetic testing pending Previous surgeries include a pacemaker in 2019. No family history of hematologic or oncologic issues but significant for cystic fibrosis in brother and nephew; granddaughter is a carrier of cystic fibrosis. Patient lives in [place], [place] with his , Nicolasa. He has 4 children. He has a 46-keat-njyz smoking history and quit in 1986. He [...] the ribs unchanged since 04-07 bone survey report pending Bone Marrow [...] Thus, a bone marrow biopsy would not cell changer and it is okay to hold off for now. PSA stable at 0.30. He will follow up with Dr. Sousa for his history of prostate cancer. Hosea Herrera MD I spent a total of 20 minutes on the date of the service which included preparing to see the patient, tpwl-kq-hhry patient care, completing clinical documentation, obtaining and/or reviewing separately obtained history, performing a medically appropriate examination, counseling and educating the patient/family/caregiver, ordering medications, tests, or procedures, independently interpreting results (not separately reported) and communicating results to the patient/family/caregiver. CC: Will Sherwood documented in this encounter [facility] 11-19-2021 Hospital Discharge instructions Patient Education [...] who: Are older than age 65. Are -Niuean. Are obese. Have a family history of [...] cells. Follow these instructions at home: Take gkay-vnx-taggqlq and prescription medicines only as told by [...] 08/03/2006 Document Revised: 07/16/2018 Document Reviewed: 04/13/2017 [employer] Patient Education 2020 vLine. Follow Up Care 10/30/2020 10:17:46 With:Young Manriquez MD, Romeo Valles, URO Address: [facility] [address], [place] [phone] When: Unknown [facility] Evaluation + Plan note Future Appointments Appointment Date:11/25/2022 10:15:00 AM Scheduled Provider:Romeo Vidal Jr., MD Location:[place] Appointment Type:URO Office Visit [facility] Evaluation + Plan note Future Appointments Appointment Date:01/22/2024 11:00:00 AM Scheduled Provider: Location:[facility] Appointment Type: Medicare Wellness Subsequent Diagnostic Tests PendingT3 Free 01/26/23 [facility] Evaluation + Plan note Future Appointments Appointment Date:03/24/2023 10:00:00 AM Scheduled Provider: Location:[facility] Appointment Type:Urology CALL PAT FT Appointment Date:03/31/2023 11:15:00 AM Scheduled Provider: Location:[facility] Appointment Type:Urology FT Appointment Date:01/22/2024 11:00:00 AM Scheduled Provider: [facility] Appointment Type: Medicare Wellness Subsequent Appointment Date:03/14/2024 11:15:00 AM Scheduled Provider:Oni MCKEON MD Location:[facility] [place] Appointment Type:URO Office Visit Diagnostic Tests PendingPSA Total 03/09/23 [facility] Evaluation + Plan note Future Appointments Appointment Date:01/22/2024 11:00:00 AM Scheduled Provider: Location:[facility] [place] Appointment Type: Medicare Wellness Subsequent Appointment Date:03/14/2024 11:15:00 AM Scheduled Provider:Oni MCKEON MD [facility] Appointment Type:URO Office Visit [facility] Evaluation + Plan note Future Appointments Appointment Date:12/02/2023 01:00:00 PM Scheduled Provider:Pito Patterson MD [facility] Appointment Type: Open Appointment Date:01/18/2024 01:00:00 PM Scheduled Provider:Pito Patterson MD [facility] Appointment Type: Open Appointment Date:01/22/2024 11:00:00 AM Scheduled Provider: [facility] Appointment Type: Medicare Wellness Subsequent Appointment Date:03/14/2024 11:15:00 AM Scheduled Provider:Oni MCKEON MD Location:[facility] [place] Appointment Type:URO Office Visit [facility] Evaluation + Plan note Future Appointments Appointment Date:05/17/2024 10:00:00 AM Scheduled Provider:Pito Patterson MD [facility] Appointment Type:FM Open Appointment Date:02/14/2025 08:00:00 AM Scheduled Provider: [facility] Appointment Type: Medicare Wellness Subsequent Appointment Date:04/24/2025 09:45:00 AM Scheduled Provider:Oni MCKEON MD Location:[facility] [place] Appointment Type:URO Office Visit Diagnostic Tests PendingPSA Total 04/22/24 [facility] [place] Evaluation note Diagnosis MGUS (monoclonal gammopathy of unknown significance)- Primary Monoclonal paraproteinemia [facility] B12 deficiency- Primary Other B-complex deficiencies Diffuse large B-cell lymphoma, unspecified body region (HCC) [facility] Diagnosis MGUS (monoclonal gammopathy of unknown significance)- Primary Monoclonal paraproteinemia Macrocytic anemia Unspecified deficiency anemia [facility] Diagnosis MGUS (monoclonal gammopathy of unknown significance)- Primary Monoclonal paraproteinemia History of lymphoma Personal history of other lymphatic and hematopoietic neoplasm Lymph node enlargement Enlargement of lymph nodes Skin lesion of face Unspecified disorder of skin and subcutaneous tissue [facility] History of lymphoma Personal history of other lymphatic and hematopoietic neoplasm Lymph node enlargement Enlargement of lymph nodes [facility] Diagnosis Squamous cell carcinoma of scalp- Primary Other malignant neoplasm of scalp and skin of neck 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 [facility] Work Phone: Evaluation note* Diagnosis MGUS (monoclonal gammopathy of unknown significance)- Primary Monoclonal paraproteinemia History of lymphoma Personal history of other lymphatic and hematopoietic neoplasm History of prostate cancer Personal history of malignant neoplasm of prostate Skin lesion of face Unspecified disorder of skin and subcutaneous tissue [facility] Diagnosis Wound infection- Primary Posttraumatic wound infection not elsewhere classified Squamous cell carcinoma of scalp Other malignant neoplasm of scalp and skin of neck [facility] Diagnosis Localized enlarged lymph nodes- Primary Enlargement of lymph nodes [facility] Diagnosis Squamous cell carcinoma of scalp- Primary Other malignant neoplasm of scalp and skin of neck Wound infection Posttraumatic wound infection not elsewhere classified Thyroid nodule (CMS/HCC) Nontoxic uninodular goiter documented in this encounter [facility] HealthcareEvaluation note* Diagnosis Hemangioma of skin and subcutaneous tissue- Primary Neoplasm of unspecified behavior of bone, soft tissue, and skin Seborrheic keratosis Actinic keratosis documented in this encounter [facility] HealthcareEvaluation note* Diagnosis Capillary angioma- Primary Nevus, non-neoplastic Melanocytic nevus of trunk Benign neoplasm of skin of trunk, except scrotum Seborrheic keratosis Actinic keratosis History of SCC (squamous cell carcinoma) of skin Personal history of other malignant neoplasm of skin Lentigo simplex Other dyschromia documented in this encounter [facility] HealthcareHospital course Narrative No data available for this section [facility] Hospital Discharge instructions No data available for this section [facility] Additional Instructions No exertional activity Antibiotic ointment to wound 3 times per day Alternate Tylenol and Motrin for pain, call the office if not helping May shower in 24 hours, blot the wounds dry and apply antibiotic ointment Apply ice to incisions for 20-minute intervals for pain and swelling. Call the office for any questions or concerns Follow-up in the office [facility] Work Phone: Progress note No data available for this section [facility] Summary Purpose Family History No Family History Records Found Relationship Condition Age at Onset Recorded Date/T ruma mother Malignant neoplasm of lung Unknown Unknown Advance Directives No Advanced Directives Records Found Advance Directive Response Recorded Date/ Time Advance Directives No June 01, 2024 10:37am Hospital Course Note MR#: [id number] [facility] Pt. Name: Chiki Juarez Admitted: 06/26/2020 [...] asthma, lymphoma, and hypothyroidism, who transferred to [facility] for evaluation of poss (more content not included)... Reason for Referral Specialty Diagnoses / Procedures Referred By Chelsie simon Referred To Contact CT IMAGING Diagnoses Localized enlarged lymph nodes Procedures CT CHEST W IVCON DIAGNOSTIC COMPUTED TOMOGRAPHY THORAX W/CONTRAST Tyler Draper MD [address] [place] [address] [place] [address] Ct [facility] [place] [address] Referral ID Status Reason Start Date Expiration Date Visits Requested Visits Authorized [id number] Authorized Auto-Generat ed Referral 11/15/2024 07/10/2025 1 1 Specialty Diagnoses / Procedures Referred By Chelsie simon Referred To Contact Dermatology Diagnoses Skin lesion of face Procedures CONSULT TO DERMATOLOGY OFFICE/OUTPATIENT [facility] 60 MINUTES Tyler Draper MD [address] [place] [address] [place] [address] Referral ID Status Reason Start Date Expiration Date Visits Requested Visits Authorized [id number] Authorized PCP Requested Referral 04/19/2024 04/19/2025 1 1 Specialty Diagnoses / Procedures Referred By Chelsie simon Referred To Contact MOLECULAR & FUNCTIONAL IMAGING Diagnoses History of lymphoma Lymph node enlargement Procedures NM PET/CT SKULL-THIGH SUBSEQUENT PET IMAGING CT ATTENUATION SKULL BASE MID-THIGH Tyler Draper MD [address] [place] [address] [place] [address] Molecular & Functional Imaging [address] [place] [address] Referral ID Status Reason Start Date Expiration Date Visits Requested Visits Authorized [id number] Authorized Auto-Generat ed Referral 04/19/2024 05/19/2025 1 1 Chief Complaint and Reason for Visit Chief Complaint Skin cancer Additional Source Comments (unrecognized sect ion and content) No Status Records FoundNo Status Records FoundNo Status Records FoundNo Status Records FoundNo Status Records FoundNo Status Records FoundNo Status Records Found INFORMATION SOURCE (unrecogn ized section and content) DATE CREATED AUTHOR 07/16/2020 [facility] DATE CREATED AUTHOR AUTHOR'S ORGANIZ ATION 04/26/2022 [facility] [place] [facility] DATE CREATED AUTHOR AUTHOR'S ORGANIZ ATION 05/14/2024 [facility] DATE CREATED AUTHOR AUTHOR'S ORGANIZ ATION 06/13/2024 [facility] DATE CREATED AUTHOR AUTHOR'S ORGANIZ ATION 06/16/2024 [facility] DATE CREATED AUTHOR AUTHOR'S ORGANIZ ATION 08/07/2024 [facility] dical [facility] DATE CREATED AUTHOR AUTHOR'S ORGANIZ ATION 08/31/2024 [facility] Source Comments (unrecognize d section and content) In the event this informatio n is protected by the Federal Confidentiality of Alcohol and Drug Abuse Patient Records regulations: The Federal rules restrict any use of the information to criminally investigate or prosecute any alcohol or drug abuse patient.[facility] the event this information is protected by the Federal Confidentiality of Alcohol and Drug Abuse Patient Records regulations: The Federal rules restrict any use of the information to criminally investigate or prosecute any alcohol or drug abuse patient.[facility] the event this information is protected by the Federal Confidentiality of Alcohol and Drug Abuse Patient Records regulations: The Federal rules restrict any use of the information to criminally investigate or prosecute any alcohol or drug abuse patient.[facility] the event this information is protected by the Federal Confidentiality of Alcohol and Drug Abuse Patient Records regulations: The Federal rules restrict any use of the information to criminally investigate or prosecute any alcohol or drug abuse patient.[facility] the event this information is protected by the Federal Confidentiality of Alcohol and Drug Abuse Patient Records regulations: The Federal rules restrict any use of the information to criminally investigate or prosecute any alcohol or drug abuse patient.[facility] the event this information is protected by the Federal Confidentiality of Alcohol and Drug Abuse Patient Records regulations: The Federal rules restrict any use of the information to criminally investigate or prosecute any alcohol or drug abuse patient.[facility] the event this information is protected by the Federal Confidentiality of Alcohol and Drug Abuse Patient Records regulations: The Federal rules restrict any use of the information to criminally investigate or prosecute any alcohol or drug abuse patient.[facility] the event this information is protected by the Federal Confidentiality of Alcohol and Drug Abuse Patient Records regulations: The Federal rules restrict any use of the information to criminally investigate or prosecute any alcohol or drug abuse patient.[facility] the event this information is protected by the Federal Confidentiality of Alcohol and Drug Abuse Patient Records regulations: The Federal rules restrict any use of the information to criminally investigate or prosecute any alcohol or drug abuse patient.[facility] the event this information is protected by the Federal Confidentiality of Alcohol and Drug Abuse Patient Records regulations: The Federal rules restrict any use of the information to criminally investigate or prosecute any alcohol or drug abuse patient.[facility] the event this information is protected by the Federal Confidentiality of Alcohol and Drug Abuse Patient Records regulations: The Federal rules restrict any use of the information to criminally investigate or prosecute any alcohol or drug abuse patient.[facility] Reason for Visit (unrecogniz ed section and content) Reason Comments Prostate Cancer Reason Comments Lab Orders Reason Comments Results Reason Comments Appointment Reason Comments MGUS Follow up Reason Comments Future Appointment Reason Comments Radiology NM Specialty Diagnoses / Procedures Referred By Chelsie simon Referred To Contact MOLECULAR & FUNCTIONAL IMAGING Diagnoses History of lymphoma Lymph node enlargement Procedures NM PET/CT SKULL-THIGH SUBSEQUENT PET IMAGING CT ATTENUATION SKULL BASE MID-THIGH Tyler Draper MD [address] [place] [address] [place] [address] Molecular & Functional Imaging [address] [place] [address] Referral ID Status Reason Start Date Expiration Date V isits Requested Visits Authorized [id number] Closed Auto-Generate d Referral 04/19/2024 05/19/2025 1 1 Reason Comments Suspicious Skin Lesion New patient : SCC left cheek / right scalp Specialty Diagnoses / Procedures Referred By Chelsie simon Referred To Contact Otolaryngology Diagnoses 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 Procedures [place] OFFICE/OUTPATIENT NEW HIGH MDM 60 MINUTES Crys Taylor PA [address] [place] [address] Phone: tel: fax: Connor Crawley, DO [address] [facility] [place] [address] Phone: tel: fax: Referral ID Status Reason Start Date Expiration Date V isits Requested Visits Authorized [id number] Closed Specialty Services Required 05/09/2024 11/05/2024 1 1 Reason Comments 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) Reason Comments Post-op Post op exc SCC scal p Reason Comments Pet results Reason Comments Post-op Specialty Diagnoses / Procedures Referred By Contac t Referred To Contact Dermatology Diagnoses skin lesion of face Procedures office visit Tyler Draper MD [address] [place] [address] [place] [address] Lucie Tompkins MD [address] [address] Referral ID Status Reason Start Date Expiration Date Visits Re quested Visits Authorized [id number] Closed 04/21/2024 10/18/2024 1 1 Reason Comments Skin Check Care Teams (unrecognized sec tion and content) Mis Specialist Relationship Specialty Start Date End Date Will Sherwood MD [address] [place] [address] PCP - General 08/01/05 Mis Specialist Relationship Specialty Start Date End Date Will Sherwood MD [address] [place] [address] PCP - General 08/01/05 Mis Specialist Relationship Specialty Start Date End Date Will Sherwood MD [address] [place] [address] PCP - General 08/01/05 Mis Specialist Relationship Specialty Start Date End Date Will Sherwood MD [address] [place] [address] PCP - General 08/01/05 Mis Specialist Relationship Specialty Start Date End Date Pito Patterson MD [address] [place] [id number] PCP - General Family Medicine 07/23/23 Mis Specialist Relationship Specialty Start Date End Date Pito Patterson MD [address] [place] [id number] PCP - General Family Medicine 07/23/23 Mis Specialist Relationship Specialty Start Date End Date Pito Patterson MD [address] [place], [place] [id number] PCP - General Family Medicine 07/23/23 Mis Specialist Relationship Specialty Start Date End Date Pito Patterson MD [address] [place], [place] [id number] PCP - General Family Medicine 07/23/23 Mis Specialist Relationship Specialty Start Date End Date Unallocated, Noms Provider, [address] [place], [place] [id number] PCP - General Family Medicine 04/08/23 Crys Taylor PA [address] [place] [address] Physician Charm Filter Operator Helper Dermatology 05/31/24 Connor Crawley, [address] [place] [address] Otolaryngology 05/31/24 Mis Specialist Relationship Specialty Start Date End Date Pito Patterson MD [address] [place] [address] PCP - General Family Medicine 05/31/24 Crys Taylor PA [address] [place] [address] Physician Charm Filter Operator Helper Dermatology 05/31/24 Connor Crawley, [address] [place] [address] Otolaryngology 05/31/24 Team Status: Active Member Role Status Dates Pito Patterson MD Primary Care Provider Active Team Status: Inactive Member Role Status Dates Connor Crawley DO Attending Provider Active S tart: June 01, 2024 End: June 01, 2024 Pito Patterson MD Primary Care Provider Active Start: June 01, 2024 End: June 01, 2024 Mis Specialist Relationship Specialty Start Date End Date Pito Patterson MD [address] [place] [address] PCP - General Family Medicine 05/31/24 Crys Taylor PA [address] [place] [address] Physician Charm Filter Operator Helper Dermatology 05/31/24 Connor Crawley DO [address] [place] [address] Otolaryngology 05/31/24 Mis Specialist Relationship Specialty Start Date End Date Pito Patterson MD [address] [place] [address] PCP - General Family Medicine 07/23/23 Mis Specialist Relationship Specialty Start Date End Date Pito Patterson MD [address] [place] [phone] PCP - General Family Medicine 05/31/24 Crys Taylor PA [address] [place] [address] Physician Charm Filter Operator Helper Dermatology 05/31/24 Connor Crawley DO [address] [place] [address] Otolaryngology 05/31/24 Mis Specialist Relationship Specialty Start Date End Date Unallocated, Mohit Galvan MD [address] [place] [address] PCP - General Family Medicine 04/08/23 Mis Specialist Relationship Specialty Start Date End Date Unallocated, Noms MD Cole [address] [place] [address] PCP - General Family Medicine 04/08/23 Mis Specialist Relationship Specialty Start Date End Date Pito Patterson MD [address] [place] [address] PCP - General Family Medicine 05/31/24 Crys Taylor PA [address] [place] [address] Physician Charm Filter Operator Helper Dermatology 05/31/24 Connor Crawley DO [address] [place] [address] Otolaryngology 05/31/24 FOR RECORDS PERTAINING TO PATIENTS WHO ARE [...] PRIMARY CLINICAL RECORDS. [facility] [employer] provides no warranty or guarantee of the accuracy or completeness of information in this document.
[2024-10-11 10:41] LABS: Influenza Virus A Antigen Positive; Influenza Virus B Antigen Negative; Internal Control Within Normal Limits; SARS-CoV-2 Ag NEGATIVE (NEGATIVE)
[2024-10-11] MEDS: METHYLPREDNISOLONE SOD SUCC PF 125 MG/2 ML VIAL IVP (10:46)
[2024-10-11 10:47] LABS: INR 1.06; Prothrombin Time 11.2 sec (9.0-11.6)
[2024-10-11] MEDS: IPRATROPIUM/ALBUTEROL SULFATE 3 ML AMPUL.NEB IH ×3 (10:51→16:53)
[2024-10-11 10:53] LABS: Lymphocytes Absolute Manual 1.27 10^3/uL (1.20-3.80); Monocytes Absolute Manual 4.48 10^3/uL (0.30-0.80)
[2024-10-11 10:54] LABS: Basophils Abs Manual 0.06 10^3/uL (0.00-0.10); Eosinophils Absolute Manual 0.06 10^3/uL (0.00-0.70); Macrocytosis 1+
[2024-10-11 10:56] LABS: Alanine Aminotransferase 17 U/L (16-63); Albumin Globulin Ratio 0.9; Albumin Level 3.4 g/dL (3.4-5.0); Alkaline Phosphatase 96 U/L (46-116); Aspartate Amino Transferase 17 U/L (15-37); BUN Creatinine Ratio 10.9; Bilirubin Total 0.8 mg/dL (0.2-1.0); Calcium 8.3 mg/dL (8.5-10.1); Carbon Dioxide 23.9 mmol/L (21.0-32.0); Chloride 104 mmol/L (98-107); Estimated GFR (African America 43 (>=60 mL/min/1.73m^2); Estimated GFR (Non-African Ame 36 (>=60 mL/min/1.73m^2); Globulin 3.8 g/dL; Glucose 114 mg/dL (74-106); Potassium 3.9 mmol/L (3.5-5.1); Sodium 139 mmol/L (136-145); Total Protein 7.2 g/dL (6.4-8.2); Troponin I High Sensitivity 11.7 pg/mL (4.0-76.1)
[2024-10-11 12:15] LABS: ABG PCO2 33.6 mmHg (35.0-45.0); Allen Test POSITIVE (POSITIVE); Base Excess ABG -1.6 mmol/L (-2.0-2.0); Fractionated Inspired Oxygen 35 %; HCO3 ABG 22.6 mmol/L (22.0-26.0); O2 Mode BIPAP; Oxygen Saturation ABG 95.5 %; PO2 ABG 78.5 mmHg (80.0-100.0); Puncture Site L RAD; Vent Mode ST; pH ABG 7.436 (7.350-7.450)
[2024-10-11 12:16] LABS: Pressure Support 6; Rate 12
--- NOTE | 2024-10-11 12:25 | ECG_ITS ---
[facility] Test Date: 2024-10-11 Pat Name: CHIKI FOLEY Department: Room: [facility] Gender: Male Professor Of Voice: : 1945 Requested By: PITO PATTERSON Order Number: [id number] Reading MD: KENDALL JORDAN Measurements Intervals Dickens Rate: 103 P: -18 ND: 248 QRS: 256 QRSD: 130 T: 90 QT: 386 QTc: 446 Interpretive Statements 1108 Marked sinus arrhythmia 1120 Sinus tachycardia 3234 Anteroseptal myocardial infarction, age undetermined 9150 abnormal ECG Electronically Signed On 10-11-2024 19:53:47 EST by KENDALL JORDAN
[2024-10-11] MEDS: AZITHROMYCIN 500 MG in 0.9 % SODIUM CHLORIDE 250 ML 250 MG IV (13:17)
--- NOTE | 2024-10-11 13:26 | ED_ITS ---
HPI - SOB/Dyspnea General Chief Complaint: Shortness of Breath/Dyspnea Stated Complaint: SOB Time Seen by Provider: 10/11/24 10:17 Source: patient Mode of arrival: Wheelchair Limitations: no limitations History of Present Illness HPI Narrative: Patient have history of COPD he does not use any oxygen at home but he does use CPAP, coming to the ER after he has been having 3 to 4 days history of cough associated shortness of breath and decreased p.o. intake, also associated with diarrhea The patient woke up this morning with more shortness of breath and he was brought to us because of that, upon arrival the patient is speaking in one-word sentences and he is tachypneic and wheezing audibly Related Data Home Medications ?Medication ?Instructions ?Recorded ?Confirmed albuterol sulfate 2.5 mg/3 mL 2.5 mg inhalation Q4H PRN 10/11/24 10/11/24 (0.083 %) solution for nebulization shortness of breath or wheezing amoxicillin 500 mg capsule 500 mg PO DAILY 10/11/24 10/11/24 aspirin 81 mg capsule 81 mg PO DAILY 10/11/24 10/11/24 azelastine 137 mcg (0.1 %) nasal 1 spray intranasal Q12H 10/11/24 10/11/24 spray budesonide 0.5 mg/2 mL suspension 0.5 mg inhalation Q12H 10/11/24 10/11/24 for nebulization calcium 1,200 mg PO DAILY 10/11/24 10/11/24 cholecalciferol (vitamin D3) 25 25 mcg PO DAILY 10/11/24 10/11/24 mcg (1,000 unit) capsule (Vitamin D3) cyanocobalamin (vitamin B-12) 5,000 mcg sublingual DAILY 10/11/24 10/11/24 5,000 mcg sublingual tablet (Vitamin B-12) fluticasone 500 mcg-salmeterol 50 1 inh inhalation BID 10/11/24 10/11/24 mcg/dose blistr powdr for inhalation (Advair Diskus) furosemide 20 mg tablet 20 mg PO DAILY 10/11/24 10/11/24 levothyroxine 100 mcg tablet 100 mcg PO DAILY 10/11/24 10/11/24 potassium chloride 10 mEq 10 meq PO DAILY 10/11/24 10/11/24 tablet,extended release (Klor-Con) sodium chloride 3.5 % for 4 ml inhalation BID 10/11/24 10/11/24 nebulization (Hyper-Flaco) Allergies Allergy/AdvReac Type Severity Reaction Status Date / Time No Known Drug Allergies Allergy Verified 10/11/24 10:13 Review of Systems ROS Status of ROS 10 or more systems reviewed and unremark able except as noted in history and below PFSH PFSH Social History Little interest or pleasure in doing things: not at all Feeling down, depressed, or hopeless: not at all Exam Narrative Exam Narrative: Nurses notes and vital signs reviewed and patient is not hypoxic. General: Well-appearing and in no apparent distress. Skin: Warm, dry, no pallor noted. No rash. Head: Normocephalic, atraumatic. Neck: Supple, non-tender. Eye: Pupils are equal, round and EOMI. No scleral icterus. Ears, Nose, Mouth, and Throat: TM are clear, no nasal mucosal hypertrophy. Oral mucosa is moist, no posterior oropharynx erythema, uvula is mid-line Cardiovascular: Regular Rate and Rhythm without murmur, gallop or rub. Respiratory: The patient is sitting up using accessory muscle his tachypneic and speaking 1 word sentence with audible wheezing bilaterally Musculoskeletal: normal ROM, no calf or popliteal tenderness, no lower extremity edema/swelling GI: Abdomen is soft, non-distended. Normal bowel sounds. No masses appreciated. No tenderness to palpation. No rebound, guarding, or rigidity noted. Neurological: A&O x4. No cranial nerve dysfunction observed. No truncal ataxia. Moves all extremities. Sensation intact. Psychiatric: Cooperative and interactive. Normal mood and affect. Constitutional Vital Signs, click to edit/add: Last Vital Signs Temp 99.8 F 10/11/24 10:08 Pulse 108 H 10/11/24 12:50 Resp 28 H 10/11/24 11:10 BP 119/51 10/11/24 11:00 Pulse Ox 93 L 10/11/24 12:50 O2 Del Method Nasal Cannula 10/11/24 12:50 O2 Flow Rate 4 10/11/24 12:50 FiO2 35 10/11/24 11:45 Course Vital Signs Vital signs: Vital Signs Temperature 99.8 F 10/11/24 10:08 Pulse Rate 125 H 10/11/24 10:08 Respiratory Rate 32 H 10/11/24 10:08 Blood Pressure 183/88 H 10/11/24 10:08 Pulse Oximetry 92 L 10/11/24 10:08 Oxygen Delivery Method Nasal Cannula 10/11/24 10:08 Oxygen Delivery Flow Rate 4 10/11/24 10:08 Temperature 99.8 F 10/11/24 10:08 Pulse Rate 108 H 10/11/24 12:50 Respiratory Rate 28 H 10/11/24 11:10 Blood Pressure 119/51 10/11/24 11:00 Pulse Oximetry 93 L 10/11/24 12:50 Oxygen Delivery Method Nasal Cannula 10/11/24 12:50 Oxygen Delivery Flow Rate 4 10/11/24 12:50 Fraction of Inspired Oxygen 35 10/11/24 11:45 MDM - SOB/Dyspnea MDM Narrative Medical decision making narrative: The patient presented to us with a mostly viral illness causing him to have COPD exacerbation upon arrival the patient was placed on the BiPAP machine, It was noted that the patient was tachycardic with multiple PVCs and it was read as A-fib but it is mostly only sinus arrhythmia The patient also provided with breathing treatment at least twice and methylprednisone CBC shows no leukocytosis the chemistry showing no acute pathology Flu test is positive for influenza A The patient had ABGs also do showing hypoxemia with no CO2 tension and the BiPAP was replaced by nasal cannula at 4 L and the patient is saturating 92% The patient was admitted for COPD exacerbation and hypoxemia mostly secondary to influenza he also was treated with azithromycin Patient case was discussed with Dr. Yap and she agreed with above-mentioned plan Lab Data Labs: Lab Results 10/11/24 10/11/24 10/11/24 Range/Units 10:17 10:20 12:08 WBC 6.7 (4.0-11.0) 10^3/uL RBC 3.79 L (4.70-6.10) 10^6/uL Hgb 13.1 L (14.0-18.0) g/dL Hct 40.0 L (42.0-54.0) % MCV 105.5 H (80.0-94.0) fL MCH 34.6 H (25.9-34.0) pg MCHC 32.8 (29.9-35.2) g/dL RDW 15.6 H (11.0-15.0) % Plt Count 125 L (150-450) 10^3/uL MPV 11.1 (9.5-13.5) fL Seg Neuts % (Manual) 12.0 L (43.0-75.0) Lymphocytes % (Manual) 19.0 L (20.5-60.0) % Monocytes % (Manual) 67.0 H (1.7-12.0) % Eosinophils % (Manual) 1.0 (0.9-7.0) % Basophils % (Manual) 1.0 (0.2-2.0) % Neutrophils # (Manual) 0.80 L (1.4-6.5) 10^3/uL Lymphocytes # (Manual) 1.27 (1.20-3.80) 10^3/uL Monocytes # (Manual) 4.48 H (0.30-0.80) 10^3/uL Eosinophils # (Manual) 0.06 (0.00-0.70) 10^3/uL Basophils # (Manual) 0.06 (0.00-0.10) 10^3/uL Macrocytosis 1+ PT 11.2 (9.0-11.6) sec INR 1.06 Puncture Site L rad ABG pH 7.436 (7.350-7.450) ABG pCO2 33.6 L (35.0-45.0) mmHg ABG pO2 78.5 L (80.0-100.0) mmHg ABG HCO3 22.6 (22.0-26.0) mmol/L ABG O2 Saturation 95.5 % ABG Base Excess -1.6 (-2.0-2.0) mmol/L Gomez Test Positive (POSITIVE) Vent Mode St FiO2 35 % Pressure Support 6 BiPAP 12/6 Sodium 139 (136-145) mmol/L Potassium 3.9 (3.5-5.1) mmol/L Chloride 104 (98-107) mmol/L Carbon Dioxide 23.9 (21.0-32.0) mmol/L Anion Gap 15.0 BUN 20.0 H (7.0-18.0) mg/dL Creatinine 1.84 H (0.70-1.30) mg/dL Est GFR ( Amer) 43 L (>=60 mL/min/1.73m^2) Est GFR (Non-Af Amer) 36 L (>=60 mL/min/1.73m^2) BUN/Creatinine Ratio 10.9 Glucose 114 H (74-106) mg/dL Calcium 8.3 L (8.5-10.1) mg/dL Total Bilirubin 0.8 (0.2-1.0) mg/dL AST 17 (15-37) U/L ALT 17 (16-63) U/L Alkaline Phosphatase 96 (46-116) U/L Troponin I High Sens 11.7 (4.0-76.1) pg/mL NT-Pro-B Natriuret Pep 836.0 (<=1800.0) pg/mL Total Protein 7.2 (6.4-8.2) g/dL Albumin 3.4 (3.4-5.0) g/dL Globulin 3.8 g/dL Albumin/Globulin Ratio 0.9 Influenza Type A Ag Positive A Influenza Type B Ag Negative SARS-CoV-2 Ag (CV2AG) Negative (NEGATIVE) Discharge Plan Discharge Chief Complaint: Shortness of Breath/Dyspnea Clinical Impression: Asthma exacerbation in COPD, Hypoxemia, Flu Patient Disposition: Admitted As Inpatient Time of Disposition Decision: 13:25 Condition: Good
--- NOTE | 2024-10-11 14:37 | PC.NURSE ---
admitted to icu from er. bedside report obtained. ambulated to chair from stretcher with steady gait. sob with activity. pt wears cpap at home with 4lnc bleed in. pt chio, stutters, stated this is from his stroke in 2019. oriented to room and call light.
--- NOTE | 2024-10-11 15:23 | PM.HP ---
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 According to who is at bedside, He started feeling bad on thursday. He has tried to wait through it but without improvement, shortness of breath became worse today. In the ER oxygen saturations were 80's and patient was placed on BIPAP and then transitioned to 4L NC. Patient wears a CPAP at night time with 4L oxygen but nothing during the day. 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 Patient tested positive for Influenza A and was admitted for acute respiratory failure, Copd exacerbation. There was question that his EKG showed Afib, but i do see P waves, Dr. [place] or cardiology also reviewed and agrees this was not afib. Opioid HPI Opioid Management Most Recent Pain and Opioid Data: Last Pain Assessment 10/11/24 15:59 Last ORT Total Score 0 10/11/24 14:11 10/11/24 Last ORT Risk Category Low Risk 10/11/24 14:11 10/11/24 Review of Systems ROS Narrative ROS: a complete review of systems were reviewed with patient and are positive as below or listed in History of Chief Complaint. General: fever, chills, night sweats Head: no headache, trauma, visual changes, nausea or vomiting Skin: no reported rashes, itching or sores Eyes: no blurriness of vision Ears: no reported hearing loss, vertigo, earache, or tinnitus Throat: no sore throat, hoarseness, swelling of neck, or tongue pain Heart: no chest pain Lungs: shortness of breath and cough GI: diarrhea and vomiting/nausea Urinary: no urinary urgency, frequency or pain Neuro: no numbness or tingling HEM: no bleeding issues or bruising ENDO: thyroid problems Psych: no anxiety or depression PFSH PFS Medical History (Updated 10/11/24 @ 17:18 by Erin Yap DO) Hypothyroidism (acquired) ?E03.9 - Hypothyroidism, unspecified (ICD-10) Sleep apnea treated with continuous positive airway pressure (CPAP) ?G47.30 - Sleep apnea, unspecified (ICD-10) Lymphoma ?C85.90 - Non-Hodgkin lymphoma, unspecified, unspecified site (ICD-10) Pacemaker ?Z95.0 - Presence of cardiac pacemaker (ICD-10) CVA (cerebral vascular accident) ?I63.9 - Cerebral infarction, unspecified (ICD-10) Social History Within the past year, how often did you have a drink containing alcohol: never Score interpretation: A score less than 4 is consistent with normal alcohol consumption. Smoking status: Former smoker Highest level of school completed/degree received: 12th grade, no diploma Little interest or pleasure in doing things: not at all Feeling down, depressed, or hopeless: not at all Meds Home Medications and Allergies Home Medications ?Medication ?Instructions ?Recorded ?Confirmed ?Type albuterol sulfate 2.5 mg/3 mL 2.5 mg inhalation Q4H PRN 10/11/24 10/11/24 History (0.083 %) solution for nebulization shortness of breath or wheezing amoxicillin 500 mg capsule 500 mg PO DAILY 10/11/24 10/11/24 History aspirin 81 mg capsule 81 mg PO DAILY 10/11/24 10/11/24 History azelastine 137 mcg (0.1 %) nasal 1 spray intranasal Q12H 10/11/24 10/11/24 History spray budesonide 0.5 mg/2 mL suspension 0.5 mg inhalation Q12H 10/11/24 10/11/24 History for nebulization calcium 1,200 mg PO DAILY 10/11/24 10/11/24 History cholecalciferol (vitamin D3) 25 25 mcg PO DAILY 10/11/24 10/11/24 History mcg (1,000 unit) capsule (Vitamin D3) cyanocobalamin (vitamin B-12) 5,000 mcg sublingual DAILY 10/11/24 10/11/24 History 5,000 mcg sublingual tablet (Vitamin B-12) fluticasone 500 mcg-salmeterol 50 1 inh inhalation BID 10/11/24 10/11/24 History mcg/dose blistr powdr for inhalation (Advair Diskus) furosemide 20 mg tablet 20 mg PO DAILY 10/11/24 10/11/24 History levothyroxine 100 mcg tablet 100 mcg PO DAILY 10/11/24 10/11/24 History potassium chloride 10 mEq 10 meq PO DAILY 10/11/24 10/11/24 History tablet,extended release (Klor-Con) sodium chloride 3.5 % for 4 ml inhalation BID 10/11/24 10/11/24 History nebulization (Hyper-Flaco) Allergies Allergy/AdvReac Type Severity Reaction Status Date / Time No Known Drug Allergies Allergy Verified 10/11/24 10:13 Exam Narrative Exam Narrative: General: Patient is alert, and oriented to person, place and time with normal affect, proper hygiene, short of breath with conversing Skin: no visible rashes, or ulcers Head: atraumatic, acephalic Eyes: PERRLA, no nystagmus present, conjunctiva clear, no scleral icterus Ears: normal gross auditory acuity Heart: Normal rate and rhythm, no murmurs/rubs/gallops Lungs: audible wheezes, rhales and diminished breath sounds all lung arredondo Abdomen: Normal audible bowel sounds, no distension, No palpable masses, no organomegaly, no rebound/guarding/ or rigidity Musculoskeletal: muscle atrophy noted, ROM is limited due to being in hospital bed, no swelling bilateral lower extremities Neuro: CN II-X grossly intact, normal sensation upper and lower extremities Constitutional Vital Signs, click to edit/add: Last Vital Signs Temp 99.8 F 10/11/24 10:08 Pulse 80 10/11/24 14:10 Resp 31 H 10/11/24 14:10 BP 115/70 10/11/24 14:09 Pulse Ox 91 L 10/11/24 13:45 O2 Del Method Nasal Cannula 10/11/24 14:11 O2 Flow Rate 4 10/11/24 14:11 FiO2 35 10/11/24 11:45 Results Labs Labs: Short CBC 10/11/24 Range/Units 10:20 WBC 6.7 (4.0-11.0) 10^3/uL Hgb 13.1 L (14.0-18.0) g/dL Hct 40.0 L (42.0-54.0) % Plt Count 125 L (150-450) 10^3/uL BMP 10/11/24 10:20 Sodium 139 Potassium 3.9 Chloride 104 Carbon Dioxide 23.9 BUN 20.0 H Creatinine 1.84 H Glucose 114 H Calcium 8.3 L Liver Function 10/11/24 Range/Units 10:20 Total Bilirubin 0.8 (0.2-1.0) mg/dL AST 17 (15-37) U/L ALT 17 (16-63) U/L Alkaline Phosphatase 96 (46-116) U/L Albumin 3.4 (3.4-5.0) g/dL ABG ABG results: 10/11/24 12:08 ABG pH 7.436 ABG pCO2 33.6 L ABG pO2 78.5 L ABG HCO3 22.6 ABG O2 Saturation 95.5 ABG Base Excess -1.6 Assessment and Plan Assessment and Plan (1) COPD with acute exacerbation: Assessment and Plan: start Solumedrol, opep, doxycycline IV daily, and rocephin, duonebs and PRN albuterol and pulmicort. will get Pulmonary consult. (2) Acute respiratory failure with hypoxia: Assessment and Plan: Patient required BIPAP, ABG's showed normal PH but PO2 of 78. Currently on 4 L of NC oxygen but possibility of rapid decompensation, will monitor closely in the ICU. (3) Sepsis: Assessment and Plan: continue doxycycline and rocephin, Gentle hydration, Tachycardia, Tachypnea, hypoxia with OMAR and acute respiratory failure. Qualifiers: Acute respiratory failure type: with hypoxia Sepsis acute organ dysfunction status: with acute organ dysfunction Sepsis type: sepsis due to unspecified organism Severe sepsis acute organ dysfunction type: acute respiratory failure Severe sepsis shock status: without septic shock Qualified Code(s): A41.9 - Sepsis, unspecified organism; R65.20 - Severe sepsis without septic shock; J96.01 - Acute respiratory failure with hypoxia (4) Influenza A: Assessment and Plan: start Tamiflu 30mg BID x 5 days (5) OMAR (acute kidney injury): Assessment and Plan: likely secondary to dehydration, will given gentle hydration with LR a 50cc/hr (6) Sleep apnea treated with continuous positive airway pressure (CPAP): Assessment and Plan: may wear home CPAP once respiratory status improves (7) Hypothyroidism (acquired): Assessment and Plan: continue levothyroxine (8) Pacemaker: Assessment and Plan: continue aspirin and lasix (9) Pulmonary hypertension: (10) PVCs (premature ventricular contractions): Assessment and Plan: as seen on EKG and telemetry, given home Metoprolol now. Cardiology consult in the morning. Plan Patient is a full code Continue Heparin for DVT prophylaxis patient in inpatient status and expected to cross 2 midnights for treatment of his Acute influenza/copd and sepsis
[2024-10-11] MEDS: HEPARIN SODIUM (PORCINE) 5,000 UNIT/ML VIAL 5000 UNIT SUBQ (17:05)
[2024-10-11] MEDS: METHYLPREDNISOLONE SOD SUCC PF 40 MG/ML VIAL IVP (17:05)
[2024-10-11] MEDS: LACTATED RINGER'S SOLUTION 1,000 ML 50 ML IV (17:05)
[2024-10-11] MEDS: OSELTAMIVIR PHOSPHATE 30 MG CAPSULE PO (17:08)
[2024-10-11] MEDS: DOXYCYCLINE HYCLATE 100 MG in 0.9 % SODIUM CHLORIDE 100 ML IV (17:18)
[2024-10-11] MEDS: AZELASTINE HCL 0.1% NASAL SPRAY 1 SPRAY NS (17:18)
[2024-10-11] MEDS: METOPROLOL SUCCINATE 25 MG TAB.ER.24H PO (17:21)
[2024-10-11] MEDS: CEFTRIAXONE 1,000 MG in 0.9 % SODIUM CHLORIDE 50 ML 100 MG IV (21:06)
[2024-10-11] MEDS: MONTELUKAST SODIUM 10 MG TABLET PO (21:06)
[2024-10-11] MEDS: BUDESONIDE 0.5 MG/2 ML AMPULE NEB IH (22:42)
[2024-10-11] MEDS: SODIUM CHLORIDE 3% INHALATION 15 ML NEB 4 ML IH (22:43)
[2024-10-11] MEDS: ALBUTEROL SULFATE 2.5 MG/3 ML VIAL NEB IH (22:43)
--- NOTE | 2024-10-11 23:24 | PC.NURSE ---
Pt up to the bathroom to void. Pt very short of breath with exertion. Sats on 4L 85-86%. Pt returns to bed and after resting for a few minutes, resp less labored and sat slowly increases to 94% RT in to place pt on bipap
[2024-10-12] VITALS (155 sets, daily range): BP systolic 102–130; BP diastolic 59–77; PULSE 77–102; TEMP 36.4–36.9; O2SAT 89–97
[2024-10-12] MEDS: METHYLPREDNISOLONE SOD SUCC PF 40 MG/ML VIAL IVP ×3 (01:39→17:21)
[2024-10-12] MEDS: ALBUTEROL SULFATE 2.5 MG/3 ML VIAL NEB IH ×4 (05:01→20:25)
[2024-10-12 05:26] LABS: Hematocrit 35.7 % (42.0-54.0); Hemoglobin 11.7 g/dL (14.0-18.0); Mean Corpuscular HGB Conc 32.8 g/dL (29.9-35.2); Mean Corpuscular Volume 103.8 fL (80.0-94.0); Mean Platelet Volume 11.5 fL (9.5-13.5); Platelet Count 103 10^3/uL (150-450); Red Blood Count 3.44 10^6/uL (4.70-6.10); Red Cell Distribution Width 15.2 % (11.0-15.0); White Blood Count 10.8 10^3/uL (4.0-11.0)
[2024-10-12 05:44] LABS: Alanine Aminotransferase 12 U/L (16-63); Albumin Globulin Ratio 0.7; Albumin Level 2.8 g/dL (3.4-5.0); Alkaline Phosphatase 78 U/L (46-116); Anion Gap 14.5; Aspartate Amino Transferase 20 U/L (15-37); BUN Creatinine Ratio 15.6; Bilirubin Total 0.5 mg/dL (0.2-1.0); Calcium 8.1 mg/dL (8.5-10.1); Carbon Dioxide 21.6 mmol/L (21.0-32.0); Chloride 104 mmol/L (98-107); Estimated GFR (African America 56 (>=60 mL/min/1.73m^2); Estimated GFR (Non-African Ame 46 (>=60 mL/min/1.73m^2); Globulin 3.8 g/dL; Glucose 187 mg/dL (74-106); Magnesium 2.3 mg/dL (1.8-2.4); Potassium 4.1 mmol/L (3.5-5.1); Sodium 136 mmol/L (136-145); Total Protein 6.6 g/dL (6.4-8.2)
[2024-10-12] MEDS: HEPARIN SODIUM (PORCINE) 5,000 UNIT/ML VIAL 5000 UNIT SUBQ ×2 (06:01→17:21)
[2024-10-12] MEDS: LEVOTHYROXINE SODIUM 100 MCG TABLET PO (06:02)
[2024-10-12] MEDS: DOXYCYCLINE HYCLATE 100 MG in 0.9 % SODIUM CHLORIDE 100 ML IV ×2 (06:05→17:21)
[2024-10-12] MEDS: AZELASTINE HCL 0.1% NASAL SPRAY 1 SPRAY NS ×2 (06:08→18:11)
[2024-10-12] MEDS: OSELTAMIVIR PHOSPHATE 30 MG CAPSULE PO (08:05)
[2024-10-12] MEDS: ASPIRIN 81 MG TAB.CHEW PO (08:05)
[2024-10-12] MEDS: CHOLECALCIFEROL (VITAMIN D3) 25 MCG/1,000 UNITS TABLET PO (08:05)
[2024-10-12] MEDS: METOPROLOL SUCCINATE 25 MG TAB.ER.24H PO (08:05)
[2024-10-12] MEDS: POTASSIUM CHLORIDE 10 MEQ ER TABLET PO (08:05)
[2024-10-12] MEDS: CALCIUM CARBONATE 600 MG TABLET 1200 MG PO (08:05)
[2024-10-12] MEDS: FUROSEMIDE 20 MG TABLET PO (08:05)
[2024-10-12] MEDS: CYANOCOBALAMIN 5000 MCG SL (08:08)
[2024-10-12] MEDS: [UNRECOGNIZED DRUG - OTHER] SL (08:08)
--- NOTE | 2024-10-12 08:09 | CM.NOTE ---
Important Message From Medicare discussed with pt, pt verbalizes understanding and signs paper. Original given to pt and copy placed on pt's chart.
--- NOTE | 2024-10-12 08:11 | CM.NOTE ---
Talked with pt regarding underlying COPD and preventative care. Pt does have cloth printing inspector, Dr. Berg. Pt very compliant with visits. Pt has done pulmonary rehab and cardiac rehab, insurance at this time will not cover anymore visits. Pt does wear 4L NC home oxygen for the past 5 years. Pt denies any needs for HH services. PT will evaluate pt. Pt also active with [facility] cardiology at this time.
--- NOTE | 2024-10-12 09:00 | CM.NOTE ---
Rounds made with Dr. Yap, pt continues with oxygen @4L NC. Pt also having increased work of breathing but verbalizes he is better than yesterday. No discharge today. PT and OT will evaluate pt today for discharge planning.
--- NOTE | 2024-10-12 09:03 | PM.PN ---
Progress Note: Subjective Subjective Interval history: Patient is sitting up in chair, Still short of breath with conversing and productive cough but appears more comfortable than on admission. He denies any fevers or chills. I discussed findings of chest X-ray from the ER that showed bibasilar infiltrates and started doxycycline and rocephin in the setting of superimposed bacterial pneumonia from his Influenza A. He has history of prolonged QT so avoiding prolonging agents. He had some issues with our CPAP mask fitting appropriately last night but finally worked he said about 5:30am. No other issues or complaints. He is currently on 4L NC oxygen. Exam Narrative Exam Narrative: General: Patient is alert, and oriented to person, place and time with normal affect, proper hygiene, short of breath with conversing Skin: no visible rashes, or ulcers but multiple ecchymosis over bilateral forearms Head: atraumatic, acephalic Eyes: PERRLA, no nystagmus present, conjunctiva clear, no scleral icterus Ears: normal gross auditory acuity Heart: Normal rate and rhythm, no murmurs/rubs/gallops Lungs: audible wheezes, rhales and diminished breath sounds all lung arredondo Abdomen: Normal audible bowel sounds, no distension, No palpable masses, no organomegaly, no rebound/guarding/ or rigidity Musculoskeletal: muscle atrophy noted, ROM is limited due to being in hospital bed, no swelling bilateral lower extremities Neuro: CN II-X grossly intact, normal sensation upper and lower extremities Constitutional Vital Signs, click to edit/add: Last Vital Signs Temp 97.8 F 10/12/24 07:36 Pulse 88 10/12/24 07:30 Resp 18 10/12/24 07:30 BP 103/69 10/12/24 07:13 Pulse Ox 91 L 10/12/24 07:30 O2 Del Method CPAP 10/12/24 05:01 O2 Flow Rate 4 10/12/24 07:36 FiO2 35 10/12/24 05:11 Progress Note: Objective Labs Labs: Short CBC 10/11/24 10/12/24 Range/Units 10:20 05:07 WBC 6.7 10.8 (4.0-11.0) 10^3/uL Hgb 13.1 L 11.7 L (14.0-18.0) g/dL Hct 40.0 L 35.7 L (42.0-54.0) % Plt Count 125 L 103 L (150-450) 10^3/uL BMP 10/11/24 10/12/24 10:20 05:07 Sodium 139 136 Potassium 3.9 4.1 Chloride 104 104 Carbon Dioxide 23.9 21.6 BUN 20.0 H 23.0 H Creatinine 1.84 H 1.47 H Glucose 114 H 187 H Calcium 8.3 L 8.1 L Liver Function 10/11/24 10/12/24 Range/Units 10:20 05:07 Total Bilirubin 0.8 0.5 (0.2-1.0) mg/dL AST 17 20 (15-37) U/L ALT 17 12 L (16-63) U/L Alkaline Phosphatase 96 78 (46-116) U/L Albumin 3.4 2.8 L (3.4-5.0) g/dL Progress Note: A&P Assessment and Plan (1) COPD with acute exacerbation: Assessment and Plan: Solu-medrol, opep, doxycycline IV daily, and rocephin, duonebs and PRN albuterol and pulmicort. will get Pulmonary consult. continue home neb regimen (2) Acute respiratory failure with hypoxia: Assessment and Plan: Patient required BIPAP in the ER, ABG's showed normal PH but PO2 of 78. Currently on 4 L of NC oxygen but possibility of rapid decompensation, will continue to monitor closely in the ICU. (3) Sepsis: Assessment and Plan: continue doxycycline and rocephin, Gentle hydration, Tachycardia, Tachypnea, hypoxia with OMAR and acute respiratory failure. Qualifiers: Acute respiratory failure type: with hypoxia Sepsis acute organ dysfunction status: with acute organ dysfunction Sepsis type: sepsis due to unspecified organism Severe sepsis acute organ dysfunction type: acute respiratory failure Severe sepsis shock status: without septic shock Qualified Code(s): A41.9 - Sepsis, unspecified organism; R65.20 - Severe sepsis without septic shock; J96.01 - Acute respiratory failure with hypoxia (4) Influenza A: Assessment and Plan: Tamiflu 30mg BID x 5 days (5) OMAR (acute kidney injury): Assessment and Plan: likely secondary to dehydration, stop fluids, Cr 1.47 (6) Sleep apnea treated with continuous positive airway pressure (CPAP): Assessment and Plan: continue home CPAP at night time or while sleeping (7) Hypothyroidism (acquired): Assessment and Plan: continue levothyroxine (8) Pacemaker: Assessment and Plan: continue aspirin and lasix (9) Pulmonary hypertension: (10) PVCs (premature ventricular contractions): Assessment and Plan: improved with home metoprolol, monitor electrolytes Plan Patient is a full code Continue Heparin for DVT prophylaxis
--- NOTE | 2024-10-12 10:02 | SWNOTE1 ---
SW called [employer] [facility] and pt's most script for home oxygen is 4 liters nasal canula with exertion. SW notified case management and nurse.
--- NOTE | 2024-10-12 10:06 | SWNOTE1 ---
02 prescription was from October of 20[address] Mayra Berg.
[2024-10-12] MEDS: SODIUM CHLORIDE 3% INHALATION 15 ML NEB 4 ML IH ×2 (10:35→23:18)
[2024-10-12] MEDS: BUDESONIDE 0.5 MG/2 ML AMPULE NEB IH ×2 (10:36→20:25)
[2024-10-12] MEDS: [UNRECOGNIZED DRUG - MIXTURE] 1 EACH IH ×2 (10:59→20:32)
[2024-10-12] MEDS: Tiotropium Bromide [Spiriva Respimat] 2.5 mcg/actuation mist 2 EACH IH (11:00)
[2024-10-12] MEDS: LACTATED RINGER'S SOLUTION 1,000 ML 50 ML IV (11:13)
--- NOTE | 2024-10-12 14:53 | SWNOTE1 ---
SW reviewed PT note and no skilled needs identified.
--- NOTE | 2024-10-12 17:13 | P.PLCN_ITS ---
History of Present Illness History of Present Illness Consult date: 10/12/24 Requesting physician: Erin Yap Chief complaint: SOB, COPD EXACERBATION, HYPOXEMIA Narrative: 79yo male presented to [facility] with dyspnea. Was found to have influenza A. In distress on presentation, but now improved. @ baseline O2 flow @ 4L/min. Has JUANA, on CPAP with O2 bleed-in. 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 Mayra Berg, previously saw Dr. Gibbons locally. Also has albuterol & Pulmicort nebs, Serevent, Spiriva HandiHaler, and Tezspire. Additionally on 3% saline nebs - previously on 7%, but it caused hypernatremia adverse effects (e.g. edema). Review of Systems ROS Narrative Feels better today than on presentation. Overall pulmonary status declining. Has daily thick sputum, difficulty expectorating. Status of ROS 10 or more systems reviewed and unremark able except as noted in history and below [facility] Medical History (Updated 10/11/24 @ 17:18 by Erin Yap, DO) Hypothyroidism (acquired) ?E03.9 - Hypothyroidism, unspecified (ICD-10) Sleep apnea treated with continuous positive airway pressure (CPAP) ?G47.30 - Sleep apnea, unspecified (ICD-10) Lymphoma ?C85.90 - Non-Hodgkin lymphoma, unspecified, unspecified site (ICD-10) Pacemaker ?Z95.0 - Presence of cardiac pacemaker (ICD-10) CVA (cerebral vascular accident) ?I63.9 - Cerebral infarction, unspecified (ICD-10) Social History (Updated 10/11/24 @ 20:29 by Lidya Mars) Within the past year, how often did you have a drink containing alcohol: never Score interpretation: A score less than 4 is consistent with normal alcohol consumption. Smoking status: Former smoker Non-prescribed substance use: denies use Highest level of school completed/degree received: 12th grade, no diploma Little interest or pleasure in doing things: not at all Feeling down, depressed, or hopeless: not at all Meds Home Medications and Allergies Home Medications ?Medication ?Instructions ?Recorded ?Confirmed ?Type albuterol sulfate 2.5 mg/3 mL 2.5 mg inhalation Q4H PRN 10/11/24 10/11/24 History (0.083 %) solution for nebulization shortness of breath or wheezing amoxicillin 500 mg capsule 500 mg PO DAILY 10/11/24 10/11/24 History aspirin 81 mg capsule 81 mg PO DAILY 10/11/24 10/11/24 History azelastine 137 mcg (0.1 %) nasal 1 spray intranasal Q12H 10/11/24 10/11/24 History spray budesonide 0.5 mg/2 mL suspension 0.5 mg inhalation Q12H 10/11/24 10/11/24 History for nebulization calcium 1,200 mg PO DAILY 10/11/24 10/11/24 History cholecalciferol (vitamin D3) 25 25 mcg PO DAILY 10/11/24 10/11/24 History mcg (1,000 unit) capsule (Vitamin D3) cyanocobalamin (vitamin B-12) 5,000 mcg sublingual DAILY 10/11/24 10/11/24 History 5,000 mcg sublingual tablet (Vitamin B-12) fluticasone 500 mcg-salmeterol 50 1 inh inhalation BID 10/11/24 10/11/24 History mcg/dose blistr powdr for inhalation (Advair Diskus) furosemide 20 mg tablet 20 mg PO DAILY 10/11/24 10/11/24 History levothyroxine 100 mcg tablet 100 mcg PO DAILY 10/11/24 10/11/24 History potassium chloride 10 mEq 10 meq PO DAILY 10/11/24 10/11/24 History tablet,extended release (Klor-Con) salmeterol 50 mcg/dose blister 1 inh inhalation BID 10/11/24 10/11/24 History powder for inhalation (Serevent Diskus) sodium chloride 3.5 % for 4 ml inhalation BID 10/11/24 10/11/24 History nebulization (Hyper-Flaco) tiotropium bromide 2.5 2 inh inhalation DAILY 10/11/24 10/11/24 History mcg/actuation mist for inhalation (Spiriva Respimat) Allergies Allergy/AdvReac Type Severity Reaction Status Date / Time No Known Drug Allergies Allergy Verified 10/11/24 10:13 Exam Constitutional Vital Signs, click to edit/add: Last Vital Signs Temp 97.8 F 10/12/24 07:36 Pulse 85 10/12/24 16:30 Resp 2 L 10/12/24 16:30 BP 102/61 10/12/24 16:42 Pulse Ox 91 L 10/12/24 16:50 O2 Del Method Nasal Cannula 10/12/24 10:42 O2 Flow Rate 4 10/12/24 10:42 FiO2 35 10/12/24 05:11 Documenting provider has reviewed patient's vital signs: yes Common normals: no apparent distress General appearance: cooperative HENMT Other: Wearing nasal cannula Respiratory Other: Very diminished breath sounds, a few scattered fine crackles, faint expiratory wheezes in bases. Cardio Other: RRR Extremity Other: Trace BLE edema Neuro Other: No fasciculations Psych Attitude: calm and engaged Results Laboratory Findings ABG, PT/INR, D-dimer: ABG ABG pH 7.436 (7.350-7.450) 10/11/24 12:08 ABG pCO2 33.6 mmHg (35.0-45.0) L 10/11/24 12:08 ABG pO2 78.5 mmHg (80.0-100.0) L 10/11/24 12:08 ABG O2 Saturation 95.5 % 10/11/24 12:08 PT/INR, D-dimer PT 11.2 sec (9.0-11.6) 10/11/24 10:20 INR 1.06 10/11/24 10:20 Abnormal lab findings: Abnormal Labs 10/11/24 10/11/24 10/11/24 10:17 10:20 12:08 RBC 3.79 L Hgb 13.1 L Hct 40.0 L MCV 105.5 H MCH 34.6 H RDW 15.6 H Plt Count 125 L Seg Neuts % (Manual) 12.0 L Lymphocytes % (Manual) 19.0 L Monocytes % (Manual) 67.0 H Neutrophils # (Manual) 0.80 L Monocytes # (Manual) 4.48 H ABG pCO2 33.6 L ABG pO2 78.5 L BUN 20.0 H Creatinine 1.84 H Est GFR ( Amer) 43 L Est GFR (Non-Af Amer) 36 L Glucose 114 H Calcium 8.3 L ALT Albumin Influenza Type A Ag Positive A 10/12/24 05:07 RBC 3.44 L Hgb 11.7 L Hct 35.7 L MCV 103.8 H MCH RDW 15.2 H Plt Count 103 L Seg Neuts % (Manual) Lymphocytes % (Manual) Monocytes % (Manual) Neutrophils # (Manual) Monocytes # (Manual) ABG pCO2 ABG pO2 BUN 23.0 H Creatinine 1.47 H Est GFR ( Amer) 56 L Est GFR (Non-Af Amer) 46 L Glucose 187 H Calcium 8.1 L ALT 12 L Albumin 2.8 L Influenza Type A Ag Assessment and Plan Assessment and Plan (1) Influenza A: Assessment and Plan: 1. Acute viral pneumonia secondary to influenza A. Cannot R/O secondary bacterial infection (though no neutrophilia on differential). He is currently on Tamiflu for influenza, and Rocephin + doxycycline for presumptive secondary bacterial pneumonia. He seems to be improving, so I would continue current treatment plan. 2. Acute exacerbation of severe persistent asthma. On Tezspire @ home. Continue inhaled bronchodilators, Pulmicort, SoluMedrol. 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 Now having clinical manifestations with daily cough of thick, tenacious secretions. Continue with hypertonic saline, PEP. Discussed pulmonary toilet. Recommended using saline nebs prior to other inhaled treatment to facilitate cough and prevent inhaled medications from adhering to mucus which would be then coughed out subsequent to saline nebs. 4. Centrilobular emphysema. Noted on HRCT on record here @ [facility]. History of tobacco abuse. 5. Chronic hypoxic respiratory failure. Baseline flow is 4L/min ATC. 6. JUANA. Continue using CPAP with O2 bleed-in. 7. Obesity. BMI 38.9. Weight loss recommended.
[2024-10-12] MEDS: MONTELUKAST SODIUM 10 MG TABLET PO (21:06)
[2024-10-12] MEDS: CEFTRIAXONE 1,000 MG in 0.9 % SODIUM CHLORIDE 50 ML 100 MG IV (21:06)
[2024-10-13] VITALS (66 sets, daily range): BP systolic 112–167; BP diastolic 63–80; PULSE 71–104; TEMP 36.4–37.1; O2SAT 91–97
[2024-10-13] MEDS: ACETAMINOPHEN 325 MG TABLET 650 MG PO (00:58)
[2024-10-13] MEDS: METHYLPREDNISOLONE SOD SUCC PF 125 MG/2 ML VIAL 40 MG IVP ×3 (02:23→18:07)
[2024-10-13] MEDS: ALBUTEROL SULFATE 2.5 MG/3 ML VIAL NEB IH ×4 (04:18→20:46)
[2024-10-13 05:12] LABS: Mean Corpuscular HGB Conc 32.4 g/dL (29.9-35.2); Mean Corpuscular Hemoglobin 34.3 pg (25.9-34.0); Mean Corpuscular Volume 105.7 fL (80.0-94.0); Mean Platelet Volume 11.6 fL (9.5-13.5); Platelet Count 110 10^3/uL (150-450); Red Cell Distribution Width 15.2 % (11.0-15.0); White Blood Count 15.5 10^3/uL (4.0-11.0)
[2024-10-13 05:28] LABS: Alanine Aminotransferase 19 U/L (16-63); Albumin Globulin Ratio 0.8; Albumin Level 2.8 g/dL (3.4-5.0); Alkaline Phosphatase 81 U/L (46-116); Anion Gap 14.4; Aspartate Amino Transferase 32 U/L (15-37); BUN Creatinine Ratio 17.3; Bilirubin Total 0.2 mg/dL (0.2-1.0); Carbon Dioxide 25.6 mmol/L (21.0-32.0); Chloride 105 mmol/L (98-107); Estimated GFR (African America 53 (>=60 mL/min/1.73m^2); Estimated GFR (Non-African Ame 43 (>=60 mL/min/1.73m^2); Globulin 3.7 g/dL; Glucose 184 mg/dL (74-106); Sodium 140 mmol/L (136-145); Total Protein 6.5 g/dL (6.4-8.2)
[2024-10-13] MEDS: HEPARIN SODIUM (PORCINE) 5,000 UNIT/ML VIAL 5000 UNIT SUBQ ×2 (06:19→18:07)
[2024-10-13] MEDS: LEVOTHYROXINE SODIUM 100 MCG TABLET PO (06:19)
[2024-10-13] MEDS: DOXYCYCLINE HYCLATE 100 MG in 0.9 % SODIUM CHLORIDE 100 ML IV ×2 (06:19→18:06)
[2024-10-13] MEDS: AZELASTINE HCL 0.1% NASAL SPRAY 1 SPRAY NS ×2 (06:20→18:07)
[2024-10-13 06:42] LABS: Band Neutrophils Absolute 1.4 10^3/uL (0.0-0.3); Lymphocytes Absolute Manual 0.62 10^3/uL (1.20-3.80); Monocytes Absolute Manual 3.72 10^3/uL (0.30-0.80); Segmented Neut Absolute Manual 9.76 10^3/uL (1.4-6.5)
[2024-10-13 06:43] LABS: Anisocytosis 1+; Macrocytosis 1+
--- NOTE | 2024-10-13 07:16 | PM.PLPN ---
Progress Note: A&P Assessment and Plan (1) Influenza A: Assessment and Plan: 1. Acute viral pneumonia secondary to influenza A. Cannot R/O secondary bacterial infection. Continue current treatment plan. 2. Acute exacerbation of severe persistent asthma. Continue current treatment plan. 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 Pulmonary toilet. 4. Centrilobular emphysema. Asthma-COPD overlap. 5. Chronic hypoxic respiratory failure. @ baseline 4L/min ATC. 6. JUANA. CPAP with O2 bleed-in @ HS & naps. 7. Obesity. BMI 38.9. Weight loss recommended. Plan Patient seems to be slowly improving. Baseline pulmonary status is poor. Patient voiced he wishes to establish with me for local pulmonary care, while still seeing [facility] Dr. Mayra Berg for the cystic fibrosis carrier management - I am okay with this. He may F/U with me outpatient in 1-2 months to establish outpatient care. Subjective Subjective Interval history: Patient states he is doing about the same this morning - not any worse, perhaps slightly better. Denies any new pulmonary complaints. Still feels weak. No new culture results, etc. Exam Constitutional Vital Signs, click to edit/add: Last Vital Signs Temp 97.7 F 10/12/24 23:45 Pulse 77 10/13/24 06:00 Resp 18 10/13/24 04:30 BP 126/70 10/12/24 23:45 Pulse Ox 96 10/13/24 04:30 O2 Del Method CPAP 10/13/24 04:30 O2 Flow Rate 4 10/13/24 04:00 FiO2 35 10/13/24 04:30 Documenting provider has reviewed patient's vital signs: yes Common normals: no apparent distress General appearance: cooperative HENMT Other: Wearing nasal cannula No oral candidiasis Respiratory Other: Continues to have very diminished breath sounds. Mild wheezes, R > L in bases Cardio Other: RRR Extremity Other: Trace BLE edema Neuro Other: No fasciculations Psych Activity/motor behavior: appropriate eye contact
--- NOTE | 2024-10-13 07:44 | PM.PN ---
Progress Note: Subjective Subjective Interval history: Patient is sitting up in chair, Still short of breath with conversing and productive cough. He denies any fevers or chills. No other issues or complaints. He is currently on 4L NC oxygen which is his baseline. Patient is making progress but slowly, not surprising given his poor lung reserve. Exam Narrative Exam Narrative: General: Patient is alert, and oriented to person, place and time with normal affect, proper hygiene, short of breath with conversing, but less than yesterday Skin: no visible rashes, or ulcers but multiple ecchymosis over bilateral forearms Head: atraumatic, acephalic Eyes: PERRLA, no nystagmus present, conjunctiva clear, no scleral icterus Ears: normal gross auditory acuity Heart: Normal rate and rhythm, no murmurs/rubs/gallops Lungs: audible wheezes, rales and diminished breath sounds all lung arredondo Abdomen: Normal audible bowel sounds, no distension, No palpable masses, no organomegaly, no rebound/guarding/ or rigidity Musculoskeletal: muscle atrophy noted, ROM is limited due to being in hospital bed, no swelling bilateral lower extremities Neuro: CN II-X grossly intact, normal sensation upper and lower extremities Constitutional Vital Signs, click to edit/add: Last Vital Signs Temp 97.7 F 10/12/24 23:45 Pulse 77 10/13/24 06:00 Resp 18 10/13/24 04:30 BP 126/70 10/12/24 23:45 Pulse Ox 96 10/13/24 04:30 O2 Del Method CPAP 10/13/24 04:30 O2 Flow Rate 4 10/13/24 04:00 FiO2 35 10/13/24 04:30 Progress Note: Objective Labs Labs: Short CBC 10/13/24 Range/Units 04:50 WBC 15.5 H (4.0-11.0) 10^3/uL Hgb 12.0 L (14.0-18.0) g/dL Hct 37.0 L (42.0-54.0) % Plt Count 110 L (150-450) 10^3/uL BMP 10/13/24 04:50 Sodium 140 Potassium 5.0 Chloride 105 Carbon Dioxide 25.6 BUN 27.0 H Creatinine 1.56 H Glucose 184 H Calcium 9.0 Liver Function 10/13/24 Range/Units 04:50 Total Bilirubin 0.2 (0.2-1.0) mg/dL AST 32 (15-37) U/L ALT 19 (16-63) U/L Alkaline Phosphatase 81 (46-116) U/L Albumin 2.8 L (3.4-5.0) g/dL Progress Note: A&P Assessment and Plan (1) COPD with acute exacerbation: Assessment and Plan: continue Solu-medrol, opep, doxycycline IV daily, and rocephin, duonebs and PRN albuterol and pulmicort. continue home neb regimen (2) Asthma exacerbation in COPD: Assessment and Plan: see #1 (3) Influenza A: Assessment and Plan: continue Tamiflu (4) Acute respiratory failure with hypoxia: Assessment and Plan: Currently on 4 L of NC oxygen but possibility of rapid decompensation, monitor closely (5) Bacterial pneumonia: Assessment and Plan: treating for superimposed bacterial pneumonia based on bilateral lower lobe infiltrates seen on Chest X-ray, continue Doxy and Rocephin. Cultures still pending. (6) Pulmonary hypertension: Assessment and Plan: continue home meds (7) Hypothyroidism (acquired): Assessment and Plan: continue levothyroxine (8) Pacemaker: Assessment and Plan: continue aspirin and lasix (9) CVA (cerebral vascular accident): Assessment and Plan: chronic, continue aspirin Qualifiers: CVA mechanism: unspecified Qualified Code(s): I63.9 - Cerebral infarction, unspecified (10) Sleep apnea treated with continuous positive airway pressure (CPAP): Assessment and Plan: wearing home CPAP Plan Patient is a full code Continue Heparin for DVT prophylaxis I have reviewed Pulmonary note and appreciate the input, Patient is improving, slowly, Hopeful discharge home tomorrow with appropriate follow up's
[2024-10-13] MEDS: CHOLECALCIFEROL (VITAMIN D3) 25 MCG/1,000 UNITS TABLET PO (08:56)
[2024-10-13] MEDS: METOPROLOL SUCCINATE 25 MG TAB.ER.24H PO (08:57)
[2024-10-13] MEDS: CYANOCOBALAMIN 5000 MCG SL (08:57)
[2024-10-13] MEDS: ASPIRIN 81 MG TAB.CHEW PO (08:57)
[2024-10-13] MEDS: [UNRECOGNIZED DRUG - OTHER] SL (08:57)
[2024-10-13] MEDS: OSELTAMIVIR PHOSPHATE 30 MG CAPSULE PO (08:57)
[2024-10-13] MEDS: CALCIUM CARBONATE 600 MG TABLET 1200 MG PO (08:57)
[2024-10-13] MEDS: FUROSEMIDE 20 MG TABLET PO (08:57)
[2024-10-13] MEDS: SODIUM CHLORIDE 3% INHALATION 15 ML NEB 4 ML IH ×2 (10:28→23:10)
[2024-10-13] MEDS: BUDESONIDE 0.5 MG/2 ML AMPULE NEB IH ×2 (10:28→20:46)
[2024-10-13] MEDS: [UNRECOGNIZED DRUG - MIXTURE] 1 EACH IH ×2 (10:36→20:49)
[2024-10-13] MEDS: Tiotropium Bromide [Spiriva Respimat] 2.5 mcg/actuation mist 2 EACH IH (10:37)
--- NOTE | 2024-10-13 11:49 | CM.NOTE ---
Rounds made with Dr. Yap. Dr. Yap reviews plan of care with Mr. Juarez. No plan for discharge today.
--- NOTE | 2024-10-13 14:40 | PC.NURSE ---
taken to room 229 via wheelchair. belongings and meds sent with pt and . report given to rosanna jamil
[2024-10-13] MEDS: 0.9 % SODIUM CHLORIDE 250 ML 10 ML IV (18:07)
[2024-10-13] MEDS: CEFTRIAXONE 1,000 MG in 0.9 % SODIUM CHLORIDE 50 ML 100 MG IV (21:47)
[2024-10-13] MEDS: MONTELUKAST SODIUM 10 MG TABLET PO (21:48)
[2024-10-13] MEDS: TRAZODONE HCL 50 MG TABLET 25 MG PO (23:21)
--- NOTE | 2024-10-13 23:37 | RESP.RT ---
Pt placed on CPAP 15 for the night.
[2024-10-14 02:00] VITALS: PULSE 78
[2024-10-14] MEDS: METHYLPREDNISOLONE SOD SUCC PF 125 MG/2 ML VIAL 40 MG IVP (02:55)
[2024-10-14 03:56] VITALS: PULSE 77
--- NOTE | 2024-10-14 04:55 | PC.NURSE ---
Family called and spoke with this nurse, about pt's son. Son is in ICU at another hospital and is going to pass away. Family asked if they could come to see pt. Family and this nurse into room to explain to pt siltation and options. Pt would like to leave to go and see his son before leaving. This nurse contacted BEVERAGE DIST[employer]ER Nanette Bradford about siltation. BEVERAGE [employer]ER stated to this nurse that pt would need to sign out AMA and come back and be readmitted. Nurse into room to explain to family and pt options. Pt signs AMA forms. This nurse assist pt in getting ready for discharge. Home medications given to family. Pt is taken via wheelchair to car with family. [employer]ER notified
--- NOTE | 2024-10-14 09:13 | CM.NOTE ---
Pt returned hospital oxygen tank from discharge.
--- NOTE | 2024-10-14 09:44 | P.DS_ITS ---
DS: Providers Provider Date of admission: 10/11/24 14:00 Primary care physician: PITO PATTERSON Attending physician on admission: Erin Yap Consults: 10/11/24 Consult to Cardiology Routine Reason for consultation: hx pacemaker, poss afib Has provider been notified: Yes 10/11/24 17:06 Consult to Pulmonology Routine Consulting Provider: Chester Ferro Reason for consultation: COPD/Asthma exacerbation and influenza Has provider been notified: Yes 10/12/24 Occupational Therapy Eval and Treat Routine Reason for consultation: weakness Physical Therapy Eval and Treat Routine Reason for consultation: weakness Discharging clinician: Erin Yap DS: Diagnosis Discharge Diagnosis (1) COPD with acute exacerbation: (2) Asthma exacerbation in COPD: (3) Influenza A: (4) Acute respiratory failure with hypoxia: (5) Bacterial pneumonia: (6) Pulmonary hypertension: (7) Hypothyroidism (acquired): (8) Pacemaker: (9) CVA (cerebral vascular accident): Qualifiers: CVA mechanism: unspecified Qualified Code(s): I63.9 - Cerebral infarction, unspecified (10) Sleep apnea treated with continuous positive airway pressure (CPAP): DS: Summary Hospital Course Hospital Course: Patient had to leave abruptly last night as his son at another local hospital. I have spoke with patient and family this morning. I have sent medications to [facility] to include doxycycline 100mg BID x 10 days, prednisone 40mg daily x 7 days, Tamiflu 30mg daily x 5 days. He will resume his home respiratory regimen and other home medications. He is on his home 4L NC oxygen continuous and this is set up at home. He has close follow up with Dr. Ferro and Dr. Vitale. He will return to the ER with any worsening signs or symptoms. Patient prefers to go home due to the recent passing of their son. Status at Discharge Functional status at discharge: independent ambulation Overall status at discharge: patient is progressing back to baseline Time Spent with Patient Time attestation: Total time spent providing and/or coordinating discharge services: Time spent: greater than 30 minutes Exam Narrative Exam Narrative: Patient left prior to exam being able to be performed. Constitutional Vital Signs, click to edit/add: Last Vital Signs Temp 97.7 F 10/13/24 23:29 Pulse 77 10/14/24 03:56 Resp 20 10/13/24 23:31 BP 147/80 H 10/13/24 23:29 Pulse Ox 97 10/13/24 23:35 O2 Del Method Nasal Cannula 10/13/24 23:25 O2 Flow Rate 4 10/13/24 23:29 FiO2 35 10/13/24 23:35 Discharge Plan Discharge Disposition: Home, Self-Care Condition: Good Discharge Medications: New dextromethorphan-guaifenesin 10-100 mg/5 mL Syrup 10 ml PO Q6H PRN (Reason: Cough) 7 Days Qty: 240 0RF metoprolol succinate 25 mg Tablet Extended Release 24 Hr 25 mg PO QD Qty: 30 0RF oseltamivir 30 mg Capsule 30 mg PO QD 5 Days Qty: 5 0RF prednisone 20 mg tablet 20 mg PO BID 7 Days Qty: 14 0RF doxycycline hyclate 100 mg tablet 100 mg PO BID 10 Days Qty: 20 0RF Continued albuterol sulfate 2.5 mg /3 mL (0.083 %) solution for nebulization 2.5 mg inhalation Q4H PRN (Reason: shortness of breath or wheezing) budesonide 0.5 mg/2 mL suspension for nebulization 0.5 mg inhalation Q12H fluticasone propion-salmeterol [Advair Diskus] 500-50 mcg/dose blister with device 1 inh inhalation BID furosemide 20 mg tablet 20 mg PO DAILY potassium chloride [Klor-Con 10] 10 mEq tablet extended release 10 meq PO DAILY levothyroxine 100 mcg tablet 100 mcg PO DAILY calcium tablet 1,200 mg PO DAILY cyanocobalamin (vitamin B-12) [Vitamin B-12] 5,000 mcg tablet, sublingual 5,000 mcg sublingual DAILY cholecalciferol (vitamin D3) [Vitamin D3] 25 mcg (1,000 unit) capsule 25 mcg PO DAILY aspirin 81 mg capsule 81 mg PO DAILY azelastine 137 mcg (0.1 %) spray,non-aerosol 1 spray INTRANASAL Q12H Hyper-Flaco 3.5 % solution for nebulization 4 ml INHALATION BID Spiriva Respimat 2.5 mcg/actuation mist 2 inh inhalation DAILY Serevent Diskus 50 mcg/dose blister with device 1 inh inhalation BID Discontinued amoxicillin 500 mg capsule 500 mg PO DAILY Activity: increase activity as tolerated and wear oxygen at all times Activity Detail: 4L NC continuous Diet: advance to your usual diet Print Language: Georgian Follow Up Appointments: Dr Easton, [facility] cardiology [place] Office, October 21, 2024 at 11:15, Dr Ferro, Saturday November 02, 2024 at 2:00, Discharge Date/Time: 10/14/24 04:50 Discharge location: Home
--- NOTE | 2024-10-17 13:38 | CM.DCFOLLOWU ---
1st attempt 10/17/24, no answer
--- NOTE | 2024-10-19 14:42 | CM.DCFOLLOWU ---
3rd attempt 10/19/24, no answer
== END 2024-10-14 04:50 | disposition home or self-care (01) | DRG 871 ==
LOC: ER 13:25 → ICU 14:07 → MS 10-13 14:37
PROVIDERS: Admitting Provider Family Medicine; Emergency Provider Emergency Medicine; PCP Family Medicine; Visit Provider Family Medicine
DX: A41.9 Sepsis, unspecified organism (principal); J10.08 Influenza due to other identified influenza virus with other specified pneumonia; J96.21 Acute and chronic respiratory failure with hypoxia; J15.9 Unspecified bacterial pneumonia; C85.90 Non-Hodgkin lymphoma, unspecified, unspecified site; N17.9 Acute kidney failure, unspecified; J45.51 Severe persistent asthma with (acute) exacerbation; R65.20 Severe sepsis without septic shock; Z14.1 Cystic fibrosis carrier; J43.2 Centrilobular emphysema; Z87.891 Personal history of nicotine dependence; G47.33 Obstructive sleep apnea (adult) (pediatric); Z68.38 Body mass index [BMI] 38.0-38.9, adult; E03.9 Hypothyroidism, unspecified; Z79.899 Other long term (current) drug therapy; Z79.82 Long term (current) use of aspirin; Z79.890 Hormone replacement therapy; Z95.0 Presence of cardiac pacemaker; Z86.73 Personal history of transient ischemic attack (TIA), and cerebral infarction without residual deficits; I27.20 Pulmonary hypertension, unspecified; E86.0 Dehydration; I49.3 Ventricular premature depolarization; Z99.81 Dependence on supplemental oxygen; Z53.29 Procedure and treatment not carried out because of patient's decision for other reasons; E66.9 Obesity, unspecified
CPT/HCPCS: 36415; 36600; 71045; 80053; 82805; 83735; 83880; 84484; 85007; 85025; 85027; 85610; 87804; 87811; 93005; 94640; 94660; 94667; 94668; 94761; 96365; 96375; 99291; 99292; J0456; J0696; J1644; J2919

== ENCOUNTER 2024-11-04 09:57 | Outpatient (OUT) | payer MEDICARE, SELFPAY ==
--- NOTE | 2024-11-04 10:00 | CA_ITS ---
Patient Name: CHIKI FOLEY MR#: [id number] : 1945 Exam Date: 11/04/2024 Ordering Doctor: DR DANIELLA EASTON M.D. ECHOCARDIOGRAM REPORT PROCEDURE: CA ECHO DOPPLER COMPLETE INDICATIONS: Dyspnea, pacemaker COMPARISON: None. DESCRIPTION: COMPLETE ECHOCARDIOGRAM Real-time transthoracic echocardiography with 2D, M-mode, spectral and color flow Doppler performed. QUALITY: Technically difficult due to patients condition. LEFT VENTRICLE: Normal chamber size. Mild concentric left ventricular hypertrophy. Systolic function is at the lower limits of normal. Unable to assess regional wall motion abnormalities; consider contrast study for better delineation of endocardial borders. LV EF: Lower limits of normal left ventricular ejection fraction, (50-55%). DIASTOLIC: ATRIAL SEPTUM: Visually appears intact. LEFT ATRIUM: Mild dilatation. RIGHT ATRIUM: Mild dilatation. RIGHT VENTRICLE: Normal chamber size. Normal systolic function. Pacer wire present. TRICUSPID VALVE: Normal mobility and thickness. No stenosis with mild regurgitation. Doppler studies reveal mildly (35-45) elevated right sided pressures. RVSP 44 mmHg MITRAL VALVE: Mildly thickened with normal mobility. No evidence of mitral valve stenosis. There is no mitral annular calcification. No mitral regurgitation. AORTIC VALVE: Normal trileaflet appearance. Mildly calcified aortic valve. Mildly diminished mobility. No evidence of aortic valve stenosis. Mild aortic regurgitation. AORTIC ROOT: Normal diameter and appearance. Ascending aorta is normal in size. PULMONIC VALVE: Normal thickness and mobility. No stenosis. Mild to moderate regurgitation. PERICARDIUM: No evidence of pericardial effusion. IVC: IVC is normal in size, does not collapse. PLEURA: CONCLUSION: 1. Mild concentric low ventricular hypertrophy with low normal systolic function. LVEF is estimated at 50 to 55%. 2. Normal right ventricular size and systolic function. 3. Mild biatrial dilatation. 4. Mild aortic and tricuspid regurgitation. 5. Mild to moderate pulmonic regurgitation. 6. Mildly elevated right-sided pressures. RVSP is 44 mmHg. Adult Echocardiography Procedure Report Left Ventricle LVEDD (3.7 - 5.6 cm): 4.23 cm LVESD (2.2 - 4.0 cm): 3.10 cm LVIVS thickness (0.6 - 1.2 cm): 1.23 cm LVPW thickness (0.5 - 1.0 cm): 1.29 cm e': 0.08 m/s E - e': 4.52 LVOT Max Gradient: 2.02 mm[Hg] LVOT Area (cm2): 0.71 m/s Peak Velocity (LVOT): 0.71 m/s Mean Velocity (LVOT): 0.48 m/s LVOT Diameter 2.52 cm Left Atrium Left Atrium Systolic Dimension: 3.71 cm Mitral Valve MV E to A Ratio: 0.51 Mitral Valve A-Wave Peak Velocity: 0.67 m/s Mitral Valve E-Wave Peak Velocity: 0.34 m/s Right Ventricle Aorta AO Root Diam: 3.46 cm Ascending Ao Diam: 3.11 cm Aortic Valve AoV Area (Peak Sherif): 3.04 cm2, 3.04 cm2 AoV Area (VTI): 2.99 cm2, 2.99 cm2 Peak Velocity(Antegrade Flow): 1.16 m/s Peak Gradient(Antegrade Flow): 5.42 mm[Hg] Mean Velocity(Antegrade Flow): 0.75 m/s Mean Gradient(Antegrade Flow): 2.62 mm[Hg] Velocity Time Integral: 25.54 cm Tricuspid Valve Peak Velocity (Regurgitant Flow): 2.60 m/s, 3.02 m/s Pulmonic Valve Mean Gradient: 1.95 mm[Hg] Mean Velocity: 0.65 m/s Peak Velocity: 1.02 m/s, 0.90 m/s Peak Gradient: 3.21 mm[Hg], 4.20 mm[Hg] Right Atrium Right Atrium Systolic Pressure: 62.53 ml, 62.53 ml Dictated by: Daniella Easton M.D. on 11/05/2024 at 14:18 Approved by: Daniella Easton M.D. on 11/05/2024 at 14:22
== END 2024-11-04 09:58 | disposition home or self-care (01) ==
LOC: CARD 09:58
PROVIDERS: PCP Family Medicine; Visit Provider Internal Medicine Interventional Cardiology
DX: R06.09 Other forms of dyspnea (principal)
CPT/HCPCS: 93306

== ENCOUNTER 2025-03-02 12:50 | Inpatient (IN) | payer MEDICARE, SELFPAY ==
--- OUTSIDE RECORDS SUMMARY | 2024-10-13 07:44 | XMS_ITS ---
Author Organization [facility] [place] Address [address] [place] [address] Care Team Providers Care Display Carver Name Role Phone Marshall Briceño MD Primary Care Provider Chester Bañuelos [phone] REASON FOR VISIT [id number] F/U Encounters Encounter Location Date Provider Diagnosis Pulmonary Medicine [place] [address] [place] [address] 10/13/2024 Chester Ferro Plan Of Treatment No Information Progress Notes * Dorian JUAREZ GDOB:[birth year] (79 yo M)Acc No.[id number]:10/13/2024 Patient: Ernie Dorain EVANS :1945 A ge:79 Y S ex:Male Address:[address] [place] [address], [id number] * true * Date: Generated for Brandon escobar/Loren/eTransmitting on: 0 03/06/2025 06:52 AM EDT
--- OUTSIDE RECORDS SUMMARY | 2024-10-13 07:44 | XMS_ITS ---
Author Organization [facility] in [place] Address [address] [place] [address] Care Team Providers Care Wood Turner Name Role Phone Marshall Briceño MD Primary Care Provider Chester Bañuelos [phone] REASON FOR VISIT [id number] F/U Encounters Encounter Location Date Provider Diagnosis Pulmonary Medicine [place] [address] [place] [address] 10/13/2024 Chester Ferro Plan Of Treatment No Information Progress Notes * Dorian JUAREZ GDOB:[birth year] (79 yo M)Acc No.[id number]:10/13/2024 Patient: Ernie Dorian EVANS :1945 A ge:79 Y S ex:Male Address:[address] [place] [address], [id number] * true * Date: Generated for Brandon escobar/Loren/eTransmitting on: 0 03/03/2025 06:39 AM EDT
--- OUTSIDE RECORDS SUMMARY | 2024-11-02 10:00 | XMS_ITS ---
Author Organization [facility] in [place] Address [address] [place] [address] Care Team Providers Care Hotel Attendant Name Role Phone Marshall Briceño MD Primary Care Provider Chester Bañuelos [phone] Allergies Allergen (clinical drug ingredient) Drug/Non Drug Allergy documented on EMR Reaction Allergy Type Onset Date Status Latex Latex (uncoded) rash Allergy Acti ve REASON FOR VISIT HOSP F/U-[facility] [facility] Medications Medication SIG (Take, Route, Frequency, Duration) Notes Start Date End Date Status Fluticasone-Salmeterol 500-50 MCG/ACT 1 puff Inhalation Twice a day Not-Taking Tezspire 210 MG/1.91ML as directed Subcutaneous Active Spiriva Respimat 2.5 MCG/ACT 2 puffs Inhalation Once a day 11/02/2024 Active Serevent Diskus 50 MCG/ACT 1 puff Inhalation Twice a day Active Potassium Chloride ER 10 MEQ 1 tablet with food Orally Twice a day Active Budesonide 0.5 MG/2ML USE 1 VIAL VIA NEBULIZER TWICE A DAY Inhalation for 90 Days Active Furosemide 20 MG 1 tablet Orally Once a day for 30 day(s) 11/02/2024 Active HyperSal 3.5 % INHALE 4 ML VIA NEBULIZER TWO TIMES DAILY. Inhalation for 30 Days Active Levothyroxine Sodium 100 MCG TAKE 1 TABLET BY MOUTH EVERY DAY Oral for 90 Days Active Montelukast Sodium 10 MG TAKE 1 TABLET B Y MOUTH EVERY DAY Oral for 90 Days Active Albuterol Sulfate (2.5 MG/3ML) 0.083% INHALE 1 VIAL VIA NEBULIZER EVERY 4 HOURS Inhalation for 17 Days Active Aspirin 81 MG 1 tablet Orally Once a day for 30 day(s) 11/02/2024 Active Azelastine HCl 137 MCG/SPRAY SPRAY 1 SPRAY INTO EACH NOSTRIL TWICE A DAY Nasal for 50 Days Active Social History Tobacco Use: Social History Observation Description Date Details (start date - stop date) Former Smoker NA - NA Tobacco Control (Standard) Question Answer Notes Tobacco use: Former smoker How long has it been since y ou last smoked? 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) Active confirmed Problem Prolonged QT interval (712431549) Prolonged QT interval (R94.31) Active confirmed Problem 689445350 nursing home (current) use of inhaled steroids (Z79.51) Active confirmed Problem Obesity (460601910) Obesity (E66.9) Active confirmed Problem Chronic respiratory failure (95192276) Chronic respiratory failure with hypoxia (J96.11) Active confirmed Problem 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) Active confirmed Problem Uncomplicated severe persistent asthma (202274912) Severe persistent asthma, uncomplicated (J45.50) Active confirmed Problem Obstructive sleep apnea syndrome (40110202) JUANA (obstructive sleep apnea) (G47.33) Active confirmed Vital Signs Weight 216.0 lbs 11/02/2024 Height 63 in 11/02/2024 Blood pressure systolic 114 mm Hg 11/03/19 25 Blood pressure diastolic 71 mm Hg 025 Temperature 97.1 degrees Fahrenheit 11/03/19 25 Heart Rate 88 /min 11/02/2024 BMI 38.26 kg/m2 11/02/2024 Oximetry 93 % 11/02/2024 Encounters Encounter Location Date Provider Diagnosis Pulmonary Medicine [place] [address] [place] [address] 11/02/2024 Chester Ferro Severe persistent asthma, uncomplicated J45.50 ; Centrilobular emphysema J43.2 ; Chronic respiratory failure with hypoxia J96.11 ; JUANA (obstructive sleep apnea) G47.33 ; Cystic fibrosis carrier Z14.1 ; Prolonged QT interval R94.31 ; Radiation fibrosis of lung J70.1 ; Other secondary pulmonary hypertension I27.29 ; History of tobacco abuse Z87.891 ; 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 Remains symptomatic at baseline. Has multiple co-morbid conditions contributing to dyspnea. Explained options are somewhat limited - changing triple inhaled therapy around would simply be a lateral move - he does not complain of difficult with inspiration (i.e. decreased NIF). Has not tried theophylline. Avoiding chronic systemic steroid therapy. Already on biologic (Tezspire); does not appear to have T2 inflammation, so other biologics less likely to be effective. Explained to patient that I do not have full records and I don't want to reinvent the wheel by reordering tests, etc. Additionally, he is already being managed by Dr. Berg and his control seems to be decent. Discussed the option of adding Ohtuvayre (ensifentine), the new PDE3/PDE4 inhibitor, but that is currently approved only for COPD (which could be prescribed for him given emphysematous changes noted on chest CT imaging). As he is recovering from influenza/hospital ization, will see how he does over the next several months. He is scheduled to see Dr. Berg before then. 11/02/2024 Centrilobular emphysema (ICD-10 - J43.2) Asthma-COPD overlap Patient is unsure if he were tested for alpha-1 antitrypsin (AAT) deficiency. Seeing he had multiple genetic tests for questionable cystic fibrosis gene, I assume he was tested for this as well. I did not perform any testing at this time for AAT deficiency. Patient's HCO3- on admission 10/12/2024 was 21.6. There is no evidence for metabolic compensation of respiratory acidosis. 11/02/2024 Chronic respiratory failure with hypoxia (ICD-10 - J96.11) Qozu-cp-fksz encounter performed with the patient to document continued need for supplemental oxygen (O2). -Flow & directions: 4L/min ATC, including bleed-in to CPAP -Patient voices adherence to recommended usage: Yes -Symptom control on O2: Improvement of dyspnea -Counseled patient not begin, restart, or continue smoking, around the O2 due to risk of fire which could result in damage to the O2 tanks & lines, smoke inhalation and flame damage to the airway, significant vega, potential , property damage, and potential harm & to bystanders. Additionally, counseled it is not yung to begin, restart, or continue smoking given the underlying pulmonary disease that led to the point of requiring O2. -Recommendations: Continue O2 as prescribed 11/02/2024 JUANA (obstructive sleep apnea) (ICD-10 - G47.33) Zkvv-td-hzcm encounter performed with the patient to document continued need for PAP therapy. -Current DME: [facility] -PS12/14/2018; Initial AHI: 59 (3% criteria), 45 (4% criteria) -Last PAP titration: 12/28/2018 @ [facility] -CPAP set-up: 01/11/2019 -No compliance available -Mask/harness fitting: No issues -Sleep quality: I can't sleep without it! I won't nap without wearing it. -Daytime hypersomnolence: Improved with CPAP use -Recommendations: I do not have any compliance data. His CPAP is nearly 6 years old and is unable to transmit data via 5G network. He states it is making sounds and he believes it is not functioning appropriately. He states he has no one to write orders for his CPAP and supplies. I can assume management of the CPAP and certify his use. He needs a new CPAP, so I will prescribe one (along with supplies). Resting HCO3- is not elevated - I do not see any evidence to suggest underlying hypercapnia, so it is unlikely he has obesity-hypoventil ation syndrome (OHS) and I do not feel he requires a repeat PAP titration at this point. I explained to him Medicare can be finicky and may demand he has a sleep study or split-night at a minimum to recertify. He voiced understanding. If/when he gets the new CPAP, explained he will need to be seen within 30-90 days to document compliance. In the meantime, he was reminded to continue to wear the PAP @ bedtime and with any naps. -Note: This trdn-yf-qygd visit comes with my authorization that the patient's DME may request to renew, reorder, and/or replace tubing, supplies, mask, and/or PAP device (if applicable). 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 Mayra Berg. Continue pulmonary toilet (hypertonic saline ~3%, PEP). Hypertonic saline 7% resulted in hypernatremia contributing to edema. Patient is asking me to prescribe him cyclical antibiotics during the winter. I do not see any history of bronchiectasis or airway colonization (e.g. Pseudomonas). He does not know if he has had an immunodeficiency w/up nor evaluation for chronic sinusitis. I explained that I do not prescribe long-term antibiotics without some other supporting diagnosis. 11/02/2024 Prolonged QT interval (ICD-10 - R94.31) He has history of prolonged QT. Because of this, chronic azithromycin therapy (for anti-inflammatory properties, not for antibiotic use) for suppression of asthma/COPD exacerbations is not recommended. Patient does not recall discussing Daliresp as an option. 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 11/02/2024 Other secondary pulmonary hypertension (ICD-10 - I27.29) Reviewed [facility] notes - felt predominantly group 2 (cardiac), with likely contribution from COPD/hypoxia (group 3). Unclear exactly if he has rheumatoid arthritis or elevated rheumatoid factor with questionable connective-tissue disease associated fibrosis? V/Q did not show any evidence of peripheral emboli to suggest chronic thromboembolic pulmonary hypertension (CTEPH - Group 4 pulmonary hypertension). Treatment in this case is typically treating the underlying disorder(s). 11/02/2024 History of tobacco abuse (ICD-10 - Z87.891) 1ppd x 15 years, quit ~1987 This patient does not meet current LDCT criteria (e.g. age, time from cessation, # pack-years). 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 11/02/2024 Obesity (ICD-10 - E66.9) Patient's weight is inducing a restrictive pulmonary physiology. Weight loss indicated: Decrease calories, increase activity. Plan Of Treatment Treatment Notes Assessment Notes Severe persistent asthma, uncomplicated Prior treatment: Tezspire; Budesonide 0.5 nebs + Spiriva 2.5 + Serevent Diskus Moderate obstruction based off most recent spirometry 04/21/2024 @ [facility], on triple inhaled therapy + Tezspire. Remains symptomatic at baseline. Has multiple co-morbid conditions contributing to dyspnea. Explained options are somewhat limited - changing triple inhaled therapy around would simply be a lateral move - he does not complain of difficult with inspiration (i.e. decreased NIF). Has not tried theophylline. Avoiding chronic systemic steroid therapy. Already on biologic (Tezspire); does not appear to have T2 inflammation, so other biologics less likely to be effective. Explained to patient that I do not have full records and I don't want to reinvent the wheel by reordering tests, etc. Additionally, he is already being managed by Dr. Berg and his control seems to be decent. Discussed the option of adding Ohtuvayre (ensifentine), the new PDE3/PDE4 inhibitor, but that is currently approved only for COPD (which could be prescribed for him given emphysematous changes noted on chest CT imaging). As he is recovering from influenza/hospitalization, will see how he does over the next several months. He is scheduled to see Dr. Berg before then. Centrilobular emphysema Asthma-COPD overlap Patient is unsure if he were tested for alpha-1 antitrypsin (AAT) deficiency. Seeing he had multiple genetic tests for questionable cystic fibrosis gene, I assume he was tested for this as well. I did not perform any testing at this time for AAT deficiency. Patient's HCO3- on admission 10/12/2024 was 21.6. There is no evidence for metabolic compensation of respiratory acidosis. Chronic respiratory failure with hypoxia Xfmy-yz-jzza encounter performed with the patient to document continued need for supplemental oxygen (O2). -Flow & directions: 4L/min ATC, including bleed-in to CPAP -Patient voices adherence to recommended usage: Yes -Symptom control on O2: Improvement of dyspnea -Counseled patient not begin, restart, or continue smoking, around the O2 due to risk of fire which could result in damage to the O2 tanks & lines, smoke inhalation and flame damage to the airway, significant vega, potential , property damage, and potential harm & to bystanders. Additionally, counseled it is not yung to begin, restart, or continue smoking given the underlying pulmonary disease that led to the point of requiring O2. -Recommendations: Continue O2 as prescribed JUANA (obstructive sleep apnea) Viuv-mh-tdaa encounter performed with the patient to document continued need for PAP therapy. -Current DME: [facility] -PS12/14/2018; Initial AHI: 59 (3% criteria), 45 (4% criteria) -Last PAP titration: 12/28/2018 @ 01[facility] -CPAP set-up: 01/11/2019 -No compliance available -Mask/harness fitting: No issues -Sleep quality: I can't sleep without it! I won't nap without wearing it. -Daytime hypersomnolence: Improved with CPAP use -Recommendations: I do not have any compliance data. His CPAP is nearly 6 years old and is unable to transmit data via 5G network. He states it is making sounds and he believes it is not functioning appropriately. He states he has no one to write orders for his CPAP and supplies. I can assume management of the CPAP and certify his use. He needs a new CPAP, so I will prescribe one (along with supplies). Resting HCO3- is not elevated - I do not see any evidence to suggest underlying hypercapnia, so it is unlikely he has obesity-hypoventilation syndrome (OHS) and I do not feel he requires a repeat PAP titration at this point. I explained to him Medicare can be finicky and may demand he has a sleep study or split-night at a minimum to recertify. He voiced understanding. If/when he gets the new CPAP, explained he will need to be seen within 30-90 days to document compliance. In the meantime, he was reminded to continue to wear the PAP @ bedtime and with any naps. -Note: This rnmj-ql-eilq visit comes with my authorization that the patient's DME may request to renew, reorder, and/or replace tubing, supplies, mask, and/or PAP device (if applicable). Cystic fibrosis carrier Evaluted at [facility] under Dr. Mayra Berg. Continue pulmonary toilet (hypertonic saline ~3%, PEP). Hypertonic saline 7% resulted in hypernatremia contributing to edema. Patient is asking me to prescribe him cyclical antibiotics during the winter. I do not see any history of bronchiectasis or airway colonization (e.g. Pseudomonas). He does not know if he has had an immunodeficiency w/up nor evaluation for chronic sinusitis. I explained that I do not prescribe long-term antibiotics without some other supporting diagnosis. Prolonged QT interval He has history of prolonged QT. Because of this, chronic azithromycin therapy (for anti-inflammatory properties, not for antibiotic use) for suppression of asthma/COPD exacerbations is not recommended. Patient does not recall discussing Daliresp as an option. 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 Other secondary pulmonary hypertension Reviewed [facility] notes - felt predominantly group 2 (cardiac), with likely contribution from COPD/hypoxia (group 3). Unclear exactly if he has rheumatoid arthritis or elevated rheumatoid factor with questionable connective-tissue disease associated fibrosis? V/Q did not show any evidence of peripheral emboli to suggest chronic thromboembolic pulmonary hypertension (CTEPH - Group 4 pulmonary hypertension). Treatment in this case is typically treating the underlying disorder(s). History of tobacco abuse 1ppd x 15 years, quit ~1987 This patient does not meet current LDCT criteria (e.g. age, time from cessation, # pack-years). nursing home (current) use of i nhaled steroids Patient was counseled to rinse & gargle with water after inhaled corticosteroid use. Obesity Patient's weight is inducing a restrictive pulmonary physiology. Weight loss indicated: Decrease calories, increase activity. Next Appt Details Follow Up: 3 Months, Reason: PAP compliance Procedure Notes * Category Sub-Category Detail Notes PFT Data: [facility]1/FVC: 62%-FEV1: 54%-FVC: 67%-HIJ44-61%: 32%-No lung volumes performed-DLCO: 56% Progress Notes * Dorian JUAREZ GDOB:[birth year] (79 yo M)Acc No.[id number]:11/02/2024 Progress Note Patient: S Dorian EVANS G Provider: Rodrigo Ferro DO :1945 A ge:79 Y S ex:Male Date:11/02/2024 Address:[address] [place], [place] [address] Pcp:Marshall Briceño MD Check In:02:01 PM ESTCheck O ut:03:25 PM EST Subjective: * Chief Complaints: * H OSP F/U-[facility] * HPI: G eneral: HOSPITAL F/U Patient was seen by me during hospital admission to [facility] on 10/12/2024. He was admitted for acute viral pneumonia secondary to influenza A contributing to an a cute exacerbation of asthma. He states he is feeling better than at discharge, with the acute cough slowly improving - sputum is clear. He has a very complicated pulmonary history. He previously was established with Dr. Gibbons and subsequently referred to [facility] pulmonary program who have been treating him as a presumptive cystic fibrosis carrier. He is currently under Dr. Mayra Berg's care there.? He has a pulmonary toilet including hypertonic saline and PEP device. He is also being treated for asthma-COPD overlap, currrently on nebulized budesonide, Spiriva, and Serevent Diskus.? He also has been on Tezspire with documented improvement. He complains of ongoing dyspnea and wants to know why? I reviewed that he has multiple medical conditions that are contributing to dyspnea. I reviewed notes from Dr. Gibbons from [address] Berg from most recent visit 04/21/2024. He is asking about starting cyclical antibiotics for chronic sinusitis? I asked if he was evaluated by ENT or had an immunodeficiency w/up? - He did not recall being seen by ENT or had those specific labs drawn. Reviewed JUANA. He has a CPAP he received from [facility] with setup date 01/11/2019. Current CPAP settings are [id number] with 4L/min O2 bleed-in. MA Intake Comments:. Patient presents for a follow-up after a recent hospitalization. Patient complains of SOB & Cough. Patient reports back & rib pain from the coughing. Patient reports his cough to be productive with clear mucus. Patient is currently on 4L O2 at home. DME: [facility]. Patient states his breathing slowly improved. Patient is under the care of [facility], [facility] & Dr.Sarah Berg (Pulmonary). Patient requested to establish with local Pulmonary due to distance. Patient will continue to follow up with . * ROS: G eneral/Constitutional: Fever or sweats d enies. C hange of appetite d enies. C hills d enies. W eight Change d enies. H EENT: Dry mouth d enies. S ore throat d enies. O ral Ulcers d enies. P ost Nasal Drip D enies. C ongestion c hronic sinusitis. H oarseness D enies. C ardiovascular: Tachycardia d enies. E alyssa a dmits. C hest pain d enies. P alpitations d enies. R espiratory: Chest tightness d enies. P leurisy D enies. D yspnea a dmits. C ough c hronic. H emoptysis d enies. W heezing d enies. G astrointestinal: Acid Reflux/GERD/Heartburn d enies. D ysphagia e sophageal dysmotility. M usculoskeletal: Arthralgias/joint pain D enies. S kin: Easy bruising d enies. R redd d enies. ? N eurologic: Seizures d enies. S troke l ingering dysarthria. T remor d enies. H ematology: Abnormal Bleeding d enies. P sychiatric: Anxiety d enies. 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, uncomplicated Modified On:11/02/2024/U Status:confirmed J96.11 Chronic respiratory failure with hypoxia Modified On:11/02/2024/U Status:confirmed Z14.1 Cystic fibrosis patiño ier Modified On:11/02/2024/U Status:confirmed E66.9 Obesity Modified On:11/02/2024/U Status:confirmed G47.33 JUANA (obstructive sle ep apnea) Modified On:11/02/2024/U Status:confirmed Z87.891 History of tobacco a buse Modified On:11/02/2024/U Status:confirmed J70.1 Radiation fibrosis o f lung Modified On:11/02/2024/U Status:confirmed R94.31 Prolonged QT interva l Modified On:11/02/2024U Status:confirmed I27.29 Other secondary pulm onary hypertension Modified On:11/02/2024U Status:confirmed J43.2 Centrilobular emphys vihs Modified On:10/13/2024/U Status:confirmed Z79.51 nursing home (current) use of inhaled steroids Modified On:11/02/2024/U Status:confirmed * Medical History: * Surgical History: m elanoma excision lymph node resection Cardiac Catheterization cardiac pacemeker * Hospitalization/Major Diagno stic Procedure: C OPD Exacerbation-TBH 10/11/2024 * Family History: F ather: black lung, stroke. M other: Lung cancer, diagnosed with Unspecified heart disease. B gildardo(s): Cystic Fibrosis, COPD, diagnosed with Colon cancer. S esther(s): diagnosed with Unspecified heart disease. * Social History: T obacco Use: T obacco Control (Standard) T obacco use: F ormer smoker H ow long has it been since you last smoked??Greater than 10 years A dditional Findings: Tobacco non-user E x-moderate cigarette smoker (10-19/day) Electronic Cigarette use C urrent user N o LM: Additional Tobacco Questions N umber of Years Pt Smoked: 1 5 N umber of Packs per Day: 1 When did you stop smokin years ago.. M iscellaneous: O ccupation O ccupation: R etired Maintenance Pets: none. D rugs/Alcohol: D rugs H ave you used drugs other than those for medical reasons in the past 12 months? N o D oes the Patient have a History of Drug Abuse in the Past? N o Caffeine I ntake: 1 -2 cups per day Coffee Do you drink alcohol?: Yes, Socially. Do you smoke marijuana?: Denies. * Medications: T akingAlbuterol Sulfate (2.5 MG/3ML) 0.083% Nebulization Solution INHALE 1 VIAL VIA NEBULIZER EVERY 4 HOURS Inhalation Aspirin 81 MG Tablet Delayed Release 1 tablet Orally Once a day Azelastine HCl 137 MCG/SPRAY Solution SPRAY 1 SPRAY INTO EACH NOSTRIL TWICE A DAY Nasal Budesonide 0.5 MG/2ML Suspension USE 1 VIAL VIA NEBULIZER TWICE A DAY Inhalation Furosemide 20 MG Tablet 1 tablet Orally Once a day HyperSal(Sodium Chloride) 3.5 % Nebulization Solution INHALE 4 ML VIA NEBULIZER TWO TIMES DAILY. Inhalation Levothyroxine Sodium 100 MCG Tablet TAKE 1 TABLET BY MOUTH EVERY DAY Oral Montelukast Sodium 10 MG Tablet TAKE 1 TABLET BY MOUTH EVERY DAY Oral Potassium Chloride ER 10 MEQ Tablet Extended Release 1 tablet with food Orally Twice a day Serevent Diskus(Salmeterol Xinafoate) 50 MCG/ACT Aerosol Powder Breath Activated 1 puff Inhalation Twice a day Spiriva Respimat(Tiotropium Shannon Monohydrate) 2.5 MCG/ACT Aerosol Solution 2 puffs Inhalation Once a day Tezspire(Tezepelumab-ekko) 210 MG/1.91ML Solution Auto-injector as directed Subcutaneous Taking Albuterol Sulfate (2.5 MG/3ML) 0.083% Nebulization Solution INHALE 1 VIAL VIA NEBULIZER EVERY 4 HOURS Inhalation Taking Aspirin 81 MG Tablet Delayed Release 1 tablet Orally Once a day Taking Azelastine HCl 137 MCG/SPRAY Solution SPRAY 1 SPRAY INTO EACH NOSTRIL TWICE A DAY Nasal Taking Budesonide 0.5 MG/2ML Suspension USE 1 VIAL VIA NEBULIZER TWICE A DAY Inhalation Taking Furosemide 20 MG Tablet 1 tablet Orally Once a day Taking HyperSal(Sodium Chloride) 3.5 % Nebulization Solution INHALE 4 ML VIA NEBULIZER TWO TIMES DAILY. Inhalation Taking Levothyroxine Sodium 100 MCG Tablet TAKE 1 TABLET BY MOUTH EVERY DAY Oral Taking Montelukast Sodium 10 MG Tablet TAKE 1 TABLET BY MOUTH EVERY DAY Oral Taking Potassium Chloride ER 10 MEQ Tablet Extended Release 1 tablet with food Orally Twice a day Taking Serevent Diskus(Salmeterol Xinafoate) 50 MCG/ACT Aerosol Powder Breath Activated 1 puff Inhalation Twice a day Taking Spiriva Respimat(Tiotropium [place] Monohydrate) 2.5 MCG/ACT Aerosol Solution 2 puffs Inhalation Once a day Taking Tezspire(Tezepelumab-ekko) 210 MG/1.91ML Solution Auto-injector as directed Subcutaneous Not-Taking/PRNFluticasone-Salmeterol 500-50 MCG/ACT Aerosol Powder Breath Activated 1 puff Inhalation Twice a day Medication List reviewed and reconciled with the patientNot-Taking/PRN Fluticasone-Salmeterol 500-50 MCG/ACT Aerosol Powder Breath Activated 1 puff Inhalation Twice a day Medication List reviewed and reconciled with the patient * Allergies: L atex: rash - Allergyno[Allergies Verified] Objective: * Vitals: W t:216.0lbs, Ht:63in, BP:sittin/71mm Hg, Temp:Forehead:97.1F, HR: 90 /min,88/min, BMI:38.26Index, Oxygen sat %: Oxygen 2l:88 %,Oxygen 4l:93%, Ht-cm: 160.02 cm, Wt-k.98 kg. * Examination: E xam: GENERAL APPEARANCE: A ppears stated age. Skin N ormal. Nose W earing nasal cannula. Mouth P ink and moist. Oropharynx M allampati Class III. Trachea M idline. Chest N ormal. Respiratory Normal M ovements, E ffort N ormal. Auscultation D iminished breath sounds. No expiratory wheezes. Mildly coarse in bases. Cardiac R egular rate and rhythm. Gastrointestinal N ormal. Vascular T race lower extremity edema. Musculoskeletal N ormal posture. Neurological M ild slurring/stuttering of speech. Psychiatric A lert and oriented x3. Mentation/Cognition N ormal. Assessment: * Assessment: 1. S evere persistent asthma, uncomplicated - J45.50 (Primary) 2 . C entrilobular emphysema - J43.2 3 . C hronic respiratory failure with hypoxia - J96.11? 4. O SA (obstructive sleep apnea) - G47.33 5 . C ystic fibrosis carrier - Z14.1 6 . 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 O ther secondary pulmonary hypertension - I27.29 9 . H istory of tobacco abuse - Z87.891 1 0. L madelaine term (current) use of inhaled steroids - Z79.51 1 1. O besity - E66.9 ? Plan: * Treatment: 2. C entrilobular emphysema Notes: Asthma-COPD overlap Patient is unsure if he were tested for alpha-1 antitrypsin (AAT) deficiency. Seeing he had multiple genetic tests for questionable cystic fibrosis gene, I assume he was tested for this as well. I did not perform any testing at this time for AAT deficiency. Patient's HCO3- on admission 10/12/2024 was 21.6. There is no evidence for metabolic compensation of respiratory acidosis. 3. C hronic respiratory failure with hypoxia Notes: Fejp-mu-zxjy encounter performed with the patient to document continued need for supplemental oxygen (O2). -Flow & directions: 4L/min ATC, including bleed-in to CPAP -Patient voices adherence to recommended usage: Yes -Symptom control on O2: Improvement of dyspnea -Counseled patient not begin, restart, or continue smoking, around the O2 due to risk of fire which could result in damage to the O2 tanks & lines, smoke inhalation and flame damage to the airway, significant vega, potential , property damage, and potential harm & to bystanders. Additionally, counseled it is not yung to begin, restart, or continue smoking given the underlying pulmonary disease that led to the point of requiring O2. -Recommendations: Continue O2 as prescribed 4. O SA (obstructive sleep apnea) Notes: Chkh-on-qtas encounter performed with the patient to document continued need for PAP therapy. -Current DME: [facility] -PS12/14/2018; Initial AHI: 59 (3% criteria), 45 (4% criteria) -Last PAP titration: 12/28/2018 @ [id number] -CPAP set-up: 01/11/2019 -No compliance available -Mask/harness fitting: No issues -Sleep quality: I can't sleep without it! I won't nap without wearing it. -Daytime hypersomnolence: Improved with CPAP use -Recommendations: I do not have any compliance data. His CPAP is nearly 6 years old and is unable to transmit data via 5G network. He states it is making sounds and he believes it is not functioning appropriately. He states he has no one to write orders for his CPAP and supplies. I can assume management of the CPAP and certify his use. He needs a new CPAP, so I will prescribe one (along with supplies). Resting HCO3- is not elevated - I do not see any evidence to suggest underlying hypercapnia, so it is unlikely he has obesity-hypoventilation syndrome (OHS) and I do not feel he requires a repeat PAP titration at this point. I explained to him Medicare can be finicky and may demand he has a sleep study or split-night at a minimum to recertify. He voiced understanding. If/when he gets the new CPAP, explained he will need to be seen within 30-90 days to document compliance. In the meantime, he was reminded to continue to wear the PAP @ bedtime and with any naps. -Note: This kkio-ol-goyn visit comes with my authorization that the patient's DME may request to renew, reorder, and/or replace tubing, supplies, mask, and/or PAP device (if applicable). 5. C ystic fibrosis carrier Notes: Evaluted at [facility] under Dr. Mayra Berg. Continue pulmonary toilet (hypertonic saline ~3%, PEP). Hypertonic saline 7% resulted in hypernatremia contributing to edema. Patient is asking me to prescribe him cyclical antibiotics during the winter. I do not see any history of bronchiectasis or airway colonization (e.g. Pseudomonas). He does not know if he has had an immunodeficiency w/up nor evaluation for chronic sinusitis. I explained that I do not prescribe long-term antibiotics without some other supporting diagnosis. 6. P rolonged QT interval Notes: He has history of prolonged QT. Because of this, chronic azithromycin therapy (for anti-inflammatory properties,notfor antibiotic use) for suppression of asthma/COPD exacerbations is not recommended. Patient does not recall discussing Daliresp as an option. 7. 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 8. O ther secondary pulmonary hypertension Notes: Reviewed [facility] notes - felt predominantly group 2 (cardiac), with likely contribution from COPD/hypoxia (group 3). Unclear exactly if he has rheumatoid arthritis or elevated rheumatoid factor with questionable connective-tissue disease associated fibrosis? V/Q did not show any evidence of peripheral emboli to suggest chronic thromboembolic pulmonary hypertension (CTEPH - Group 4 pulmonary hypertension). Treatment in this case is typically treating the underlying disorder(s). 9. H istory of tobacco abuse Notes: 1ppd x 15 years, quit ~1987 This patient does not meet current LDCT criteria (e.g. age, time from cessation, # pack-years).? 10. L madelaine term (current) use of inhaled steroids Notes: Patient was counseled to rinse & gargle with water after inhaled corticosteroid use. 11. O besity Notes: Patient's weight is inducing a restrictive pulmonary physiology. Weight loss indicated: Decrease calories, increase activity. * Procedures: P FT: Data: - [facility] -FEV1/FVC: 62% -FEV1: 54% -FVC: 67% -WVC56-42%: 32% -No lung volumes performed -DLCO: 56%. * Procedure Codes: * Preventive Medicine: COVID Vaccination: H as patient had COVID Vaccination? COVID Vaccination Y es 05/12/2024 Immunization Status: P neumovacc p neumovacc 23-05/25/2018. I nfluenza 0 05/12/2024. Z ostivax 1 09/24/2019. B oostrix 0 05/09/2020. Screenings/Counseling: F ALL RISK SCREENING Fall Risk Assessment: N o falls in the past year Are you afraid of falling? N o T [place] ACTION PLAN Patient counselled on the dangers of tobacco use and urged to quit. 0 11/02/2024 Former Education on smoking effects provided?11/02/2024 Former B [place] ACTION PLAN Above Normal BMI Follow-up D ietary management education, guidance, and counseling * Disposition & Communication: A ttestation: Over 40 minutes spent with patient today reviewing multiple complex pulmonary issues. * Follow Up: 3 Months (Reason: PAP compliance) * * Sign off status: Completed Visit Status: C HK (Check Out) true * Provider: Rodrigo Ferro DO Date: 11/02/2024 Generated for Brandon escobar/Loren/Travitting on: 0 03/03/2025 06:39 AM EDT History and Physical Notes * HPI (History of Present Illness) Category Sub-Category Detail Notes Category Not es General Patient present s for a follow-up after a recent hospitalization. Patient complains of SOB & Cough. Patient reports back & rib pain from the coughing. Patient reports his cough to be productive with clear mucus. Patient is currently on 4L O2 at home. DME: [facility]. Patient states his breathing slowly improved. Patient is under the care of [facility], [facility] Card[facility] & Dr.Sarah Berg (Pulmonary). Patient requested to establish with local Pulmonary due to distance. Patient will continue to follow up with . Examination Category Sub-Category Detail Notes Category Not es Exam GENERAL APPEARANCE: Appears stated age Skin Normal Eyes Ears Nose Wearing nasal cannul a Mouth [place] and moist Trachea Midline Chest Normal Respiratory Normal Movements, Ef fort Normal Auscultation Diminished breath so unds. No expiratory wheezes. Mildly coarse in bases Cardiac Regular rate and rhy thm Gastrointestinal Normal Vascular Trace lower extremit y edema Musculoskeletal Normal posture Neurological Mild slurring/stutte ring of speech Psychiatric Alert and oriented x 3 Mentation/Cognition Normal Oropharynx Mallampati Class III
--- OUTSIDE RECORDS SUMMARY | 2024-11-02 10:00 | XMS_ITS ---
Author Organization [facility] in [place] Address [address] [place] [address] Care Team Providers Care Senior Account Manager Name Role Phone Marshall Briceño MD Primary Care Provider Chester Bañuelos [phone] Allergies Allergen (clinical drug ingredient) Drug/Non Drug Allergy documented on EMR Reaction Allergy Type Onset Date Status Latex Latex (uncoded) rash Allergy Acti ve REASON FOR VISIT HOSP F/U-[facility] Medications Medication SIG (Take, Route, Frequency, [...] Problem Status W/U Status Risk Notes Problem Obstructive sleep apnea syndrome (28590846) JUANA (obstructive sleep apnea) (G47.33) Active confirmed Problem Uncomplicated severe persistent asthma (289202171) Severe persistent asthma, uncomplicated (J45.50) Active confirmed Problem Carrier of cystic fibrosis gene mutation (851302086) Cystic fibrosis carrier (Z14.1) Active confirmed Problem Chronic respiratory failure (62373282) Chronic respiratory failure with hypoxia (J96.11) Active confirmed Problem Obesity (203050841) Obesity (E66.9) Active confirmed Problem 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77572254) 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) Active confirmed Problem Secondary pulmonary hypertension (54952300) Other secondary pulmonary hypertension (I27.29) Active confirmed Problem Ex-tobacco user (finding) (522917807) History of tobacco abuse (Z87.891) Active confirmed Problem 227533049 detention (current) use of inhaled steroids (Z79.51) Active confirmed Problem Prolonged QT interval (825285286) Prolonged QT interval (R94.31) Active confirmed Vital Signs Weight 216.0 lbs 11/02/2024 Height 63 in 11/02/2024 Blood pressure systolic 114 mm Hg 11/03/19 25 Blood pressure diastolic 71 mm Hg 025 Temperature 97.1 degrees Fahrenheit 11/03/19 25 Heart Rate 88 /min 11/02/2024 BMI 38.26 kg/m2 11/02/2024 Oximetry 93 % 11/02/2024 Encounters Encounter Location Date Provider Diagnosis Pulmonary Medicine [place] [address] [place] [address] 11/02/2024 Chester Ferro Severe persistent asthma, uncomplicated J45.50 ; Centrilobular emphysema J43.2 ; Chronic respiratory failure with hypoxia J96.11 ; JUANA (obstructive sleep apnea) G47.33 ; Cystic fibrosis carrier Z14.1 ; Prolonged QT interval R94.31 ; Radiation fibrosis of lung J70.1 ; Other secondary pulmonary hypertension I27.29 ; History of tobacco abuse Z87.891 ; 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 -Current DME: [facility] -PS12/14/2018; Initial AHI: 59 (3% criteria), 45 (4% criteria) -Last PAP titration: 12/28/2018 @ [id number] -CPAP set-up: 01/11/2019 -No compliance available -Mask/harness [...] bedtime and with any naps. -Note: This erwk-ts-yawd visit comes with my authorization that the patient's DME may request to renew, reorder, and/or replace tubing, supplies, mask, and/or PAP device (if applicable). 11/02/2024 Cystic fibrosis carrier (ICD-10 - Z14.1) [facility]. Continue pulmonary toilet [...] secondary pulmonary hypertension (ICD-10 - I27.29) [facility]ed [facility] - felt predominantly group 2 (cardiac), [...] age, time from cessation, # pack-years). 11/02/2024 terminal clerk (current) use of inhaled steroids (ICD-10 - [...] respiratory acidosis. Chronic respiratory failure with hypoxia Zisg-vu-cjpv encounter performed with the patient to document [...] O2 as prescribed JUANA (obstructive sleep apnea) Pwvc-wd-oobe encounter performed with the patient to document continued need for PAP therapy. -Current DME: [facility] -PS12/14/2018; Initial AHI: 59 (3% criteria), 45 (4% criteria) -Last PAP titration: 12/28/2018 @ [id number] -CPAP set-up: 01/11/2019 -No compliance available -Mask/harness [...] bedtime and with any naps. -Note: This mwsu-vh-oyld visit comes with my authorization that the patient's DME may request to renew, reorder, and/or replace tubing, supplies, mask, and/or PAP device (if applicable). Cystic fibrosis carrier [facility] Mayra Berg. Continue pulmonary toilet [...] non-Hodgkin lymphoma. Other secondary pulmonary hypertension Reviewed [facility] - felt predominantly group 2 (cardiac), [...] (e.g. age, time from cessation, # pack-years). detention (current) use of i nhaled steroids Patient was counseled to rinse & gargle with water after inhaled corticosteroid use. Obesity Patient's weight is inducing a restrictive pulmonary physiology. Weight loss indicated: Decrease calories, increase activity. Next Appt Details Follow Up: 3 Months, Reason: PAP compliance Procedure Notes * Category Sub-Category Detail Notes PFT Data: 04/21/2024 - [facility] [facility]FEV1/FVC: 62%-FEV1: 54%-FVC: 67%-RSB63-39%: 32%-No lung volumes performed-DLCO: 56% Progress Notes * Dorian JUAREZ GDOB:[birth year] (79 yo M)Acc No.[id number]:11/02/2024 Progress Note Patient: S Dorian EVANS G Provider: Rodrigo Ferro DO :1945 A ge:79 Y S ex:Male Date:11/02/2024 Address:[address] [place], [place] [id number] Pcp:Marshall Briceño MD Check In:02:01 PM ESTCheck O ut:03:25 PM EST Subjective: * Chief Complaints: * H OSP F/U-[facility] * HPI: G eneral: HOSPITAL F/U Patient was seen by me during hospital admission to [facility] on 10/12/2024. He was admitted for acute viral pneumonia secondary to influenza A contributing to an a cute exacerbation of asthma. He states he is feeling better than at discharge, with the acute cough slowly improving - sputum is clear. He has a very complicated pulmonary history. He previously was established with Dr. Gibbons and subsequently referred to [facility] pulmonary program who have been treating [...] He has a CPAP he received from [facility] with setup date 01/11/2019. Current CPAP settings are [id number] with 4L/min O2 bleed-in. MA Intake Comments:. Patient presents for a follow-up after a recent hospitalization. Patient complains of SOB & Cough. Patient reports back & rib pain from the coughing. Patient reports his cough to be productive with clear mucus. Patient is currently on 4L O2 at home. DME: [facility]. Patient states his breathing slowly improved. [facility], [facility] Cardiology & Dr.Sarah Berg (Pulmonary). Patient requested [...] hypertension Modified On:11/02/2024U Status:confirmed J43.2 Centrilobular emphys vish Modified On:10/13/2024/U Status:confirmed Z79.51 detention (current) use of inhaled steroids Modified On:11/02/2024/U [...] puff Inhalation Twice a day Spiriva Respimat(Tiotropium [place] Monohydrate) 2.5 MCG/ACT Aerosol Solution 2 puffs [...] Inhalation Twice a day Taking Spiriva Respimat(Tiotropium [place] Monohydrate) 2.5 MCG/ACT Aerosol Solution 2 puffs [...] C hronic respiratory failure with hypoxia Notes: Axxn-av-vwyg encounter performed with the patient to document [...] 4. O SA (obstructive sleep apnea) Notes: Miha-rb-zjqm encounter performed with the patient to document continued need for PAP therapy. -Current DME: [facility] -PS12/14/2018; Initial AHI: 59 (3% criteria), 45 (4% criteria) -Last PAP titration: 12/28/2018 @ 56hsQ4K -CPAP set-up: 01/11/2019 -No compliance available -Mask/harness [...] bedtime and with any naps. -Note: This rndl-xo-sfqq visit comes with my authorization that the patient's DME may request to renew, reorder, and/or replace tubing, supplies, mask, and/or PAP device (if applicable). 5. C ystic fibrosis carrier Notes: [facility] Mayra Berg. Continue pulmonary toilet [...] O ther secondary pulmonary hypertension Notes: Reviewed [facility] - felt predominantly group 2 (cardiac), [...] activity. * Procedures: P FT: Data: - [facility] -FEV1/FVC: 62% -FEV1: 54% -FVC: 67% -OFD95-01%: 32% -No lung volumes performed -DLCO: 56%. [...] Education on smoking effects provided?11/02/2024 Former B [place] [employer] [place]AN Above Normal BMI Follow-up D [...] 11/02/2024 Generated for Brandon escobar/Loren/Travitting on: 0 03/06/2025 06:52 AM EDT History and Physical Notes * [...] is under the care of [facility], [facility] Cardiology & Dr.Sarah Berg (Pulmonary). Patient requested to establish with local Pulmonary due to distance. Patient will continue to follow up with . Examination Category Sub-Category Detail Notes Category Not es Exam GENERAL APPEARANCE: Appears stated age Skin Normal Eyes Ears Nose Wearing nasal cannul a Mouth [place] and moist Trachea Midline Chest Normal Respiratory [...]
--- OUTSIDE RECORDS SUMMARY | 2025-02-01 11:30 | XMS_ITS ---
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 Inhalation for 30 Days Active Levothyroxine Sodium 100 MCG TAKE 1 TABLET BY MOUTH EVERY DAY Oral for 90 Days Active Montelukast Sodium 10 MG TAKE 1 TABLET B Y MOUTH EVERY DAY Oral for 90 Days Active Potassium Chloride ER 10 MEQ 1 tablet with food Orally Twice a day Active Serevent Diskus 50 MCG/ACT 1 puff Inhalation Twice a day Active Furosemide 20 MG 1 tablet Orally Once a day for 30 day(s) 11/02/2024 Active Albuterol Sulfate (2.5 MG/3ML) 0.083% INHALE 1 VIAL VIA NEBULIZER EVERY 4 HOURS Inhalation for 17 Days Active Aspirin 81 MG 1 tablet Orally Once a day for 30 day(s) 11/02/2024 Active Azelastine HCl 137 MCG/SPRAY SPRAY 1 SPRAY INTO EACH NOSTRIL TWICE A DAY Nasal for 50 Days Active Budesonide 0.5 MG/2ML USE 1 VIAL VIA NEBULIZER TWICE A DAY Inhalation for 90 Days Active Spiriva Respimat 2.5 MCG/ACT 2 puffs Inhalation Once a day 11/02/2024 Active Tezspire 210 MG/1.91ML as directed Subcutaneous Active Fluticasone-Salmeterol 500-50 MCG/ACT 1 puff Inhalation Twice a day Not-Taking Social History Tobacco Use: Social History Observation Description Date Details (start date - stop date) Former Smoker NA - NA Tobacco Control (Standard) Question Answer Notes Tobacco use: Former smoker How long has it been since y ou last smoked? Greater than 10 years Additional Findings: Tobacco non-user Ex -moderate cigarette smoker (10-19/day) Vital Signs Weight 217.2 lbs 02/01/2025 Height 63 in 02/01/2025 Blood pressure systolic 138 mm Hg 02/02/20 25 Blood pressure diastolic 68 mm Hg 025 Temperature 97.0 degrees Fahrenheit 02/02/20 25 Heart Rate 81 /min 02/01/2025 Respiratory Rate 20 /min 02/01/2025 BMI 38.47 kg/m2 02/01/2025 Oximetry 92 % 02/01/2025 RA Activity/Resting Encounters Encounter Location Date Provider Diagnosis Pulmonary Medicine [address] [address] 02/01/2025 Chester Ferro Severe persistent asthma, uncomplicated J45.50 ; Centrilobular emphysema J43.2 ; Chronic respiratory failure with hypoxia J96.11 ; JUANA (obstructive sleep apnea) G47.33 ; 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 1% placebo in package insert. I personally have not encountered this side effect in the other patients I have on it. He states it was quite severe. He states it is aggravated during the times he uses Tezspire. Would expect a new medication to cause or contribute to a side effect opposed to one he has been on for years. He finally admitted some benefit with Ohtuvayre. At this point, patient needs to pick his poison : continue with Othvayre and deal with potential ongoing back pain while having improved breathing, or stop Ohtuvayre and see if the back pain goes away while risking worsening dyspnea. Patient elected to stop Ohtuvayre beginning with tonights dose. He will see if back pain improves and monitor his breathing. He said he has an appointment with Dr. Berg next month. 02/01/2025 Centrilobular emphysema (ICD-10 - J43.2) Asthma-COPD overlap 02/01/2025 Chronic respiratory failure with hypoxia (ICD-10 - J96.11) Glcx-bb-gliy encounter performed with the patient to document continued need for supplemental oxygen (O2). -Flow & directions: 4L/min ATC, including bleed-in to CPAP -Patient voices adherence to recommended usage: NO -Symptom control on O2: Improvement of dyspnea [...] to the point of requiring O2. -Recommendations: He brought his O2 into the office, but is not wearing it - consequentially, his SpO2 was 82% on RA. I pointed out his O2 is on the floor and not running. He left the office without wearing the O2 either. Continue O2 as prescribed 02/01/2025 JUANA (obstructive sleep apnea) (ICD-10 - G47.33) Mdnj-we-tujc encounter performed with the patient to document continued need for PAP therapy. -Current DME: [facility] -PS12/14/2018; Initial AHI: 59 (3% criteria), 45 (4% criteria) -Last PAP titration: 12/28/2018 @ [id number] -Compliance reviewed 01/02/2025 - 01/31/2025 -Overall use: 30/30 (100%) days ->4 hour use: 29/30 (97%) days -Settings: AirSense 11 AutoSet CPAP [id number] -Residual AHI: 2.3 -Air leak (median): 15.7L/min -Mask/harness fitting: Leak present but more tolerable than tightening the straps -Sleep quality: Once again explains I can't sleep without it! -Daytime hypersomnolence: Improved with CPAP use -Recommendations: He is doing well with the new machine; settings have not changed. He is doing well without any voiced issues. Continue to wear the PAP @ bedtime and with any naps. -Note: This dbht-nx-tmjo visit comes with my authorization that the patient's DME may request to renew, reorder, and/or replace tubing, supplies, mask, and/or PAP device (if applicable). 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 Mayra Berg. Continue pulmonary toilet (hypertonic saline ~3%, PEP). Hypertonic saline 7% resulted in hypernatremia contributing to edema. Continue F/U with Dr. Berg. 02/01/2025 Prolonged QT interval (ICD-10 - R94.31) He has history of prolonged QT. Because of this, chronic azithromycin therapy (for anti-inflammatory properties, not for antibiotic use) for suppression of asthma/COPD exacerbations is not recommended. Patient does not recall discussing Daliresp as an option. 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 02/01/2025 Other secondary pulmonary hypertension (ICD-10 - I27.29) Reviewed U notes - felt predominantly group 2 (cardiac), with likely contribution from COPD/hypoxia (group 3). Unclear exactly if he has rheumatoid arthritis or elevated rheumatoid factor with questionable connective-tissue disease associated fibrosis? V/Q did not show any evidence of peripheral emboli to suggest chronic thromboembolic pulmonary hypertension (CTEPH - Group 4 pulmonary hypertension). Treatment in this case is typically treating the underlying disorder(s). 02/01/2025 History of tobacco abuse (ICD-10 - Z87.891) 1ppd x 15 years, quit ~1987 This patient does not meet current LDCT criteria (e.g. age, time from cessation, # pack-years). 02/01/2025 assisted (current) use of inhaled steroids (ICD-10 - Z79.51) Patient was counseled to rinse & gargle with water after inhaled corticosteroid use. 02/01/2025 Obesity (ICD-10 - E66.9) Patient's weight is inducing a restrictive pulmonary physiology. Weight loss indicated: Decrease calories, increase activity. Plan Of Treatment Treatment Notes Assessment Notes Severe persistent asthma, uncomplicated Prior treatment: Tezspire; Budesonide 0.5 nebs + Spiriva 2.5 + Serevent Diskus Ohtuvaytre added on top of his regimen and now is complaining of back pain, listed 1.8% incidence vs. 1% placebo in package insert. I personally have not encountered this side effect in the other patients I have on it. He states it was quite severe. He states it is aggravated during the times he uses Tezspire. Would expect a new medication to cause or contribute to a side effect opposed to one he has been on for years. He finally admitted some benefit with Ohtuvayre. At this point, patient needs to pick his poison : continue with Othvayre and deal with potential ongoing back pain while having improved breathing, or stop Ohtuvayre and see if the back pain goes away while risking worsening dyspnea. Patient elected to stop Ohtuvayre beginning with tonights dose. He will see if back pain improves and monitor his breathing. He said he has an appointment with Dr. Berg next month. Centrilobular emphysema Asthma-COPD overlap Chronic respiratory failure with hypoxia Bjkd-ic-qfxm encounter performed with the patient to document continued need for supplemental oxygen (O2). -Flow & directions: 4L/min ATC, including bleed-in to CPAP -Patient voices adherence to recommended usage: NO -Symptom control on O2: Improvement of dyspnea [...] to the point of requiring O2. -Recommendations: He brought his O2 into the office, but is not wearing it - consequentially, his SpO2 was 82% on RA. I pointed out his O2 is on the floor and not running. He left the office without wearing the O2 either. Continue O2 as prescribed JUANA (obstructive sleep apnea) Ztef-dw-eowe encounter performed with the patient to document continued need for PAP therapy. -Current DME: [facility] -PS12/14/2018; Initial AHI: 59 (3% criteria), 45 (4% criteria) -Last PAP titration: 12/28/2018 @ [id number] -Compliance reviewed 01/02/2025 - 01/31/2025 -Overall use: 30/30 (100%) days ->4 hour use: 29/30 (97%) days -Settings: AirSense 11 AutoSet CPAP [id number] -Residual AHI: 2.3 -Air leak (median): 15.7L/min -Mask/harness fitting: Leak present but more tolerable than tightening the straps -Sleep quality: Once again explains I can't sleep without it! -Daytime hypersomnolence: Improved with CPAP use -Recommendations: He is doing well with the new machine; settings have not changed. He is doing well without any voiced issues. Continue to wear the PAP @ bedtime and with any naps. -Note: This lyjv-on-xbal visit comes with my authorization that the patient's DME may request to renew, reorder, and/or replace tubing, supplies, mask, and/or PAP device (if applicable). Cystic fibrosis carrier Evaluted at [facility] under Dr. Mayra Berg. Continue pulmonary toilet (hypertonic saline ~3%, PEP). Hypertonic saline 7% resulted in hypernatremia contributing to edema. Continue F/U with Dr. Berg. Prolonged QT interval He has history of prolonged QT. Because of this, chronic azithromycin therapy (for anti-inflammatory properties, not for antibiotic use) for suppression of asthma/COPD exacerbations is not recommended. Patient does not recall discussing Daliresp as an option. 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 Other secondary pulmonary hypertension Reviewed U notes - felt predominantly group 2 (cardiac), [...] (e.g. age, time from cessation, # pack-years). watermaster (current) use of i nhaled steroids Patient was counseled to rinse & gargle with water after inhaled corticosteroid use. Obesity Patient's weight is inducing a restrictive pulmonary physiology. Weight loss indicated: Decrease calories, increase activity. Next Appt Details Follow Up: 6 Months, Reason: Asthma, JUANA Procedure Notes * Category Sub-Category Detail Notes PFT Data: 04/21/2024 - Unive rsity of [place]-FEV1/FVC: 62%-FEV1: 54%-FVC: 67%-OOL31-39%: 32%-No lung volumes performed-DLCO: 56% Progress Notes * Dorian JUAREZ GDOB:[birth year] (79 yo M)Acc No.[id number]:02/01/2025 Follow Up Patient: Dorian HOGUE Provider: Rodrigo Ferro DO :1945 A ge:79 Y S ex:Male Date:02/01/2025 Address:[address] [place], [place] [id number] Pcp:Marshall Briceño MD Check In:03:19 PM ESTCheck O ut:03:54 PM EST Subjective: * Chief Complaints: * 3 m F/U - Asthma/COPD, JUANA * HPI: G eneral: Patient got a new CPAP. He is doing well with it, has excellent compliance. It was set up with same settings as before. Mild leak, but he said he tolerates that better than tightening the straps. He was started on Ohtuvayre through Dr. Berg. States he now has low back pain, worse with Tezspire, but never had that before. Unspecified back pain is listed as a side effect with Ohtuvayre 1.8% patients in package insert vs. 1% on placebo - I personally have not encountered anyone with this specific complaint. Asked him several times if Ohtuvayre were helping - initially he was unclear but then he said he believed it was having improvement. He entered and left the office carrying his O2, not wearing it. SpO2 was 82% on initial check on RA. MA Intake Comments:. Patient presents for a follow-up for Asthma/JUANA. Patient is currently under the care of in [place] (Pulmonary). Patient wears 4L O2/PAP Therapy at home. DME:[facility]. Patient is not wearing his O2 today. Patient states his breathing is unchanged since his last visit with our office. Patient denies any complaints or concerns with his new PAP machine. Patient states he received his new machine 2 months ago. Patient is under the care of [facility] oncology. E pworth Sleepiness Scale: [place] Sleepiness Scale C rell of dozing while sitting and reading:?1 - Slight Chance C rell of dozing while watching TV: 1 - Slight Chance C rell of dozing while sitting in a public place: 0 - Never C rell of dozing as a passenger in a car for an hour without a break: 0 - Never C rell of dozing while lying down in the afternoon to rest: 1 - Slight Chance C rell of dozing while sitting and talking to someone: 0 - Never C rell of dozing while sitting quietly after lunch: 0 - Never C rell of dozing in a stopped car for a few minutes in traffic: 0 - Never T OTAL SCORE: 2 * ROS: G eneral/Constitutional: Fever or sweats [...] J45.50 Severe persistent as thma, uncomplicated Modified On:11/02/2024U Status:confirmed J96.11 Chronic respiratory failure with hypoxia Modified On:11/02/2024 Status:confirmed Z14.1 Cystic fibrosis patiño ier Modified On:11/02/2024 Status:confirmed G47.33 JUANA (obstructive sle ep apnea) Modified On:11/02/2024 Status:confirmed Z87.891 History of tobacco a buse Modified On:11/02/2024 Status:confirmed J70.1 Radiation fibrosis o f lung Modified On:11/02/2024 Status:confirmed R94.31 Prolonged QT interva l Modified On:11/02/2024 Status:confirmed I27.29 Other secondary pulm onary hypertension Modified On:11/02/2024 Status:confirmed E66.9 Obesity Modified On:11/02/2024 Status:confirmed J43.2 Centrilobular emphys vish Modified On:10/13/2024 Status:confirmed Z79.51 assisted (current) use of inhaled steroids Modified On:11/02/2024U Status:confirmed G47.30 Sleep apnea Modified On:11/22/2024 Status:confirmed E03.9 Hypothyroidism Modified On:11/22/2024 Status:confirmed I27.20 Pulmonary hypertensi on Modified On:11/22/2024 Status:confirmed * Medical History: * Surgical History: m elanoma excision lymph node resection Cardiac Catheterization cardiac pacemeker * Hospitalization/Major Diagno stic Procedure: C OPD Exacerbation-TBH 10/11/2024 * Family History: F ather: black lung, stroke. M other: Lung cancer, diagnosed with Unspecified heart disease. B rother(s): Cystic Fibrosis, COPD, diagnosed with Colon cancer. S ister(s): diagnosed with Unspecified heart disease. * Social [...] puff Inhalation Twice a day Spiriva Respimat(Tiotropium Earth Monohydrate) 2.5 MCG/ACT Aerosol Solution 2 puffs [...] Inhalation Twice a day Taking Spiriva Respimat(Tiotropium Earth Monohydrate) 2.5 MCG/ACT Aerosol Solution 2 puffs [...] - Allergyno[Allergies Verified] Objective: * Vitals: W t:217.2lbs, Ht: 63 in, BP:sittin/68mm Hg, Temp:Forehead:97.0F, HR: 86 /min,81/min, RR:20/min, BMI:38.47Index, Oxygen sat %: Room Air:82 %,Room Air:92%, Ht-cm: 160.02 cm, Wt-k.52 kg. RA Activity/Resting. * Examination: E xam: GENERAL APPEARANCE: A ppears stated age. Skin N ormal. Nose N ot wearing nasal cannula today. Mouth P ink and moist. Oropharynx M allampati Class III. Trachea M idline. Chest N ormal. Respiratory Normal M ovements, E ffort N ormal. Auscultation C ontinues to have diminished breath sounds, coarse in the bases. Cardiac R egular rate and rhythm. [...] 2. C entrilobular emphysema Notes: Asthma-COPD overlap 3. C hronic respiratory failure with hypoxia Notes: Zbrp-dl-vqoe encounter performed with the patient to document continued need for supplemental oxygen (O2). -Flow & directions: 4L/min ATC, including bleed-in to CPAP -Patient voices adherence to recommended usage:NO -Symptom control on O2: Improvement of dyspnea [...] to the point of requiring O2. -Recommendations: He brought his O2 into the office, but is not wearing it - consequentially, his SpO2 was 82% on RA. I pointed out his O2 is on the floor and not running. He left the office without wearing the O2 either. Continue O2 as prescribed 4. O SA (obstructive sleep apnea) Notes: Cixe-gn-uexn encounter performed with the patient to document continued need for PAP therapy. -Current DME: [facility] -PS12/14/2018; Initial AHI: 59 (3% criteria), 45 (4% criteria) -Last PAP titration: 12/28/2018 @ [id number] -Compliance reviewed 01/02/2025 - 01/31/2025 -Overall use: 30/30 (100%) days ->4 hour use: 29/30 (97%) days -Settings: AirSense 11 AutoSet CPAP [id number] -Residual AHI: 2.3 -Air leak (median): 15.7L/min -Mask/harness fitting: Leak present but more tolerable than tightening the straps -Sleep quality: Once again explains I can't sleep without it! -Daytime hypersomnolence: Improved with CPAP use -Recommendations: He is doing well with the new machine; settings have not changed. He is doing well without any voiced issues. Continue to wear the PAP @ bedtime and with any naps. -Note: This pjdu-iy-aqeo visit comes with my authorization that the patient's DME may request to renew, reorder, and/or replace tubing, supplies, mask, and/or PAP device (if applicable). 5. C ystic fibrosis carrier Notes: Evaluted at [facility] under Dr. Mayra Berg. Continue pulmonary toilet (hypertonic saline ~3%, PEP). Hypertonic saline 7% resulted in hypernatremia contributing to edema. Continue F/U with Dr. Berg. ? 6. P rolonged QT interval Notes: He has history of prolonged QT. Because of this, chronic azithromycin therapy (for anti-inflammatory properties,notfor antibiotic use) for suppression of asthma/COPD exacerbations is not recommended. Patient does not recall discussing Daliresp as an option. 7. 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 8. O ther secondary pulmonary hypertension Notes: Reviewed U notes - felt predominantly group 2 (cardiac), [...] activity. * Procedures: P FT: Data: - [facility] -FEV1/FVC: 62% -FEV1: 54% -FVC: 67% -BDZ49-40%: 32% -No lung volumes performed -DLCO: 56%. [...] tobacco use and urged to quit. 0 02/01/2025 Former Education on smoking effects provided?02/01/2025 Former B NM ACTION PLAN Above Normal BMI Follow-up D ietary management education, guidance, and counseling * Follow Up: 6 Months (Reason: Asthma, JUANA) * * Sign off status: Completed Visit Status: C HK (Check Out) true * Provider: Rodrigo Ferro DO Date: 0 02/01/2025 Generated for Brandon escobar/Loren/Travitting on: 0 03/03/2025 06:39 AM EDT History and Physical Notes * HPI (History of Present Illness) Category Sub-Category Detail Notes Category Not es General Patient present s for a follow-up for Asthma/JUANA. Patient is currently under the care of in [place] (Pulmonary). Patient wears 4L O2/PAP Therapy at home. DME:[facility]. Patient is not wearing his O2 today. Patient states his breathing is unchanged since his last visit with our office. Patient denies any complaints or concerns with his new PAP machine. Patient states he received his new machine 2 months ago. Patient is under the care of [facility] oncology. [place] Sleepiness Scale [place] Sleepiness Scale Chance of dozing while sitting and reading:: 1 - Slight Chance Chance of dozing while watching TV:: 1 - Slight Chance Chance of dozing while sitting in a publ ic place:: 0 - Never Chance of dozing as a passen stefano in a car for an hour without a break:: 0 - Never Chance of dozing while lying down in the afternoon to rest:: 1 - Slight Chance Chance of dozing while sitting and talki ng to someone:: 0 - Never Chance of dozing while sitting quietly a fter lunch:: 0 - Never Chance of dozing in a stopped car for a few minutes in traffic:: 0 - Never TOTAL SCORE:: 2 Examination Category Sub-Category Detail Notes Category Not es Exam GENERAL APPEARANCE: Appears stated age Skin Normal Eyes Ears Nose Not wearing nasal ca nnula today Mouth [place] and moist Trachea Midline Chest Normal Respiratory Normal Movements, Ef fort Normal Auscultation Continues to have di minished breath sounds, coarse in the bases Cardiac Regular rate and rhy thm Gastrointestinal Normal Vascular Trace lower extremit y edema Musculoskeletal Normal posture Neurological Mild slurring/stutte ring of speech Psychiatric Alert and oriented x 3 Mentation/Cognition Normal Oropharynx Mallampati Class III
--- OUTSIDE RECORDS SUMMARY | 2025-02-01 11:30 | XMS_ITS ---
Author Organization 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 -Current DME: [facility] -PS12/14/2018; Initial AHI: 59 (3% criteria), 45 (4% criteria) -Last PAP titration: 12/28/2018 @ [id number] -Compliance reviewed 01/02/2025 - 01/31/2025 -Overall use: 30/30 (100%) days ->4 hour use: 29/30 (97%) days -Settings: AirSense 11 AutoSet CPAP [id number] -Residual AHI: 2.3 -Air leak (median): 15.7L/min [...] bedtime and with any naps. -Note: This ghrc-eb-rleu visit comes with my authorization that the patient's DME may request to renew, reorder, and/or replace tubing, supplies, mask, and/or PAP device (if applicable). 02/01/2025 Cystic fibrosis carrier (ICD-10 - Z14.1) Evaluted at [facility] under Dr. Mayra Berg. Continue pulmonary [...] age, time from cessation, # pack-years). 02/01/2025 snf (current) use of inhaled steroids (ICD-10 - [...] Asthma-COPD overlap Chronic respiratory failure with hypoxia Lxkt-in-pcal encounter performed with the patient to document [...] O2 as prescribed JUANA (obstructive sleep apnea) Lods-wh-ejxk encounter performed with the patient to document continued need for PAP therapy. -Current DME: [facility] -PS12/14/2018; Initial AHI: 59 (3% criteria), 45 (4% criteria) -Last PAP titration: 12/28/2018 @ [id number] -Compliance reviewed 01/02/2025 - 01/31/2025 -Overall use: 30/30 (100%) days ->4 hour use: 29/30 (97%) days -Settings: AirSense 11 AutoSet CPAP [id number] -Residual AHI: 2.3 -Air leak (median): 15.7L/min [...] bedtime and with any naps. -Note: This xssj-jv-kvlh visit comes with my authorization that the patient's DME may request to renew, reorder, and/or replace tubing, supplies, mask, and/or PAP device (if applicable). Cystic fibrosis carrier Evaluted at [facility] under Dr. Mayra Berg. Continue pulmonary [...] (e.g. age, time from cessation, # pack-years). manager long term care (current) use of i nhaled steroids Patient was counseled to rinse & gargle with water after inhaled corticosteroid use. Obesity Patient's weight is inducing a restrictive pulmonary physiology. Weight loss indicated: Decrease calories, increase activity. Next Appt Details Follow Up: 6 Months, Reason: Asthma, JUANA Procedure Notes * Category Sub-Category Detail Notes PFT Data: 04/21/2024 - Unive rsity of [place]-FEV1/FVC: 62%-FEV1: 54%-FVC: 67%-HFJ29-42%: 32%-No lung volumes performed-DLCO: 56% Progress Notes * Dorian JUAREZ GDOB:[birth year] (79 yo M)Acc No.[id number]:02/01/2025 Follow Up Patient: Dorian HOGUE Provider: Rodrigo Ferro DO :1945 A ge:79 Y S ex:Male Date:02/01/2025 Address:[address] [place], [place] [id number] Pcp:Marshall Briceño MD Check In:03:19 PM ESTCheck [...] is currently under the care of in [place] (Pulmonary). Patient wears 4L O2/PAP Therapy at home. DME:[facility]. Patient is not wearing his O2 today. Patient states his breathing is unchanged since his last visit with our office. Patient denies any complaints or concerns with his new PAP machine. Patient states he received his new machine 2 months ago. Patient is under the care of [facility] oncology. E pworth Sleepiness Scale: Dawson Sleepiness Scale C rell of dozing while [...] Centrilobular emphys vish Modified On:10/13/2024 Status:confirmed Z79.51 snf (current) use of inhaled steroids Modified On:11/02/2024U [...] puff Inhalation Twice a day Spiriva Respimat(Tiotropium [place] Monohydrate) 2.5 MCG/ACT Aerosol Solution 2 puffs [...] Inhalation Twice a day Taking Spiriva Respimat(Tiotropium [place] Monohydrate) 2.5 MCG/ACT Aerosol Solution 2 puffs [...] C hronic respiratory failure with hypoxia Notes: Qdet-tb-ulte encounter performed with the patient to document [...] 4. O SA (obstructive sleep apnea) Notes: Nzfj-bw-dasb encounter performed with the patient to document continued need for PAP therapy. -Current DME: [facility] -PS12/14/2018; Initial AHI: 59 (3% criteria), 45 (4% criteria) -Last PAP titration: 12/28/2018 @ [id number] -Compliance reviewed 01/02/2025 - 01/31/2025 -Overall use: 30/30 (100%) days ->4 hour use: 29/30 (97%) days -Settings: AirSense 11 AutoSet CPAP [id number] -Residual AHI: 2.3 -Air leak (median): 15.7L/min [...] bedtime and with any naps. -Note: This rkwt-wq-xtpf visit comes with my authorization that the patient's DME may request to renew, reorder, and/or replace tubing, supplies, mask, and/or PAP device (if applicable). 5. C ystic fibrosis carrier Notes: Evaluted at [facility] under Dr. Mayra Berg. Continue pulmonary [...] activity. * Procedures: P FT: Data: - [facility] -FEV1/FVC: 62% -FEV1: 54% -FVC: 67% -ECE57-58%: 32% -No lung volumes performed -DLCO: 56%. [...] Education on smoking effects provided?02/01/2025 Former B [employer] Above Normal BMI Follow-up D ietary management education, guidance, and counseling * Follow Up: 6 Months (Reason: Asthma, JUANA) * * Sign off status: Completed Visit Status: C HK (Check Out) true * Provider: Rodrigo Ferro DO Date: 0 02/01/2025 Generated for Brandon escobar/Loren/Travitting on: 0 03/06/2025 06:54 AM EDT History and Physical Notes * HPI (History of Present Illness) Category Sub-Category Detail Notes Category Not es General Patient present s for a follow-up for Asthma/JUANA. Patient is currently under the care of in [place] (Pulmonary). Patient wears 4L O2/PAP Therapy at home. DME:[facility]. Patient is not wearing his O2 today. Patient states his breathing is unchanged since his last visit with our office. Patient denies any complaints or concerns with his new PAP machine. Patient states he received his new machine 2 months ago. Patient is under the care of [facility] oncology. Dawson Sleepiness Scale Dawson Sleepiness Scale Chance of dozing while sitting [...] Not wearing nasal ca nnula today [place] and moist Trachea Midline Chest Normal Respiratory [...]
--- OUTSIDE RECORDS SUMMARY | 2025-02-15 23:59 | XMS_ITS | Continuity of Care Document ---
Author Organization [facility] Address [address] [place] [address] Care Team Providers [facility] Manager Name Role Phone Marlys Olivia Primary Care Physician [phone] Encounter FT_[email or web address] [id number] Date(s): 02/15/25 - 02/15/[address] [address]- Encounter Diagnosis Chronic kidney disease, stage 3a(Discharge Diagnosis) - 02/15/25 COPD with asthma(Discharge Diagnosis) - 02/15/25 Chronic diastolic heart failure(Discharge Diagnosis) - 02/15/25 Encounter for hepatitis C screening test for low risk patient(Discharge Diagnosis) - 02/15/25 Screening for ischemic heart disease (IHD)(Discharge Diagnosis) - 02/15/25 Hypothyroid(Discharge Diagnosis) - 02/15/25 Obesity due to excess calories(Discharge Diagnosis) - 02/15/25 Hyperglycemia(Discharge Diagnosis) - 02/15/25 Diabetes mellitus screening(Discharge Diagnosis) - 02/15/25 Pulmonary hypertension(Discharge Diagnosis) - 02/15/25 Encounter for Medicare annual examination with abnormal findings(Discharge Diagnosis) - 02/15/25 Chronic hypoxic respiratory failure(Discharge Diagnosis) - 02/15/25 Discharge Disposition: Home (Routine DC) Attending Physician: Marshall Briceño MD Encounter Type: Clinic Allergies, Adverse Reactions, Alerts No Known Allergies Assessment and Plan Future Appointments Appointment Date:02/16/2025 11:00:00 AM Scheduled Provider: Location:[facility] Appointment Type: Lab Draw Appointment Date:04/24/2025 09:45:00 AM Scheduled Provider:Oni MCKEON MD Location:[facility] [place] Appointment Type:URO Office Visit Appointment Date:02/15/2026 09:30:00 AM Scheduled Provider: Location:[facility] Appointment Type: Medicare Wellness Subsequent Future Scheduled Tests Laboratory* HgbA1c 02/15/25 * HCV Antibody RFX to Quant PCR 02/15/25 * Comprehensive Metabolic Panel 02/15/25 * Lipid Panel 02/15/25 * Thyroid Stimulating Hormone 02/15/25 Immunizations Given and Recorded Vaccine Date Status Refusal Reason SARS-CoV-2 mRNA (tozinameran 5y-11y) vac 1 05/12/24 Recorded SARS-CoV-2 mRNA (tozinameran 5y-11y) vac 2 07/02/23 Recorded influenza virus vaccine, inactivated 05/12/24 Ranjit rded influenza virus vaccine, inactivated 05/11/23 Give n influenza virus vaccine, inactivated 05/11/23 Give n influenza virus vaccine, inactivated 05/24/21 Ranjit rded influenza virus vaccine, inactivated 05/09/20 Ranjit rded influenza virus vaccine, inactivated 04/16/19 Ranjit rded influenza virus vaccine, inactivated 05/25/18 Ranjit rded influenza virus vaccine, inactivated 04/26/18 Ranjit rded influenza virus vaccine, inactivated 08/04/17 Ranjit rded canakinumab 3 03/21/24 Recorded RSV vaccine preF3, recombinant 03/21/24 Recorded SARSCoV2 mRNA(qcjotkrwq-zfro-bcolqc) vac 03/11/22 Recorded SARS-CoV-2 (COVID-19) mRNA BNT-162b2 vax 06/25/21 Recorded SARS-CoV-2 (COVID-19) mRNA BNT-162b2 vax 11/13/20 Recorded SARS-CoV-2 (COVID-19) mRNA BNT-162b2 vax 10/22/20 Recorded zoster vaccine, inactivated 07/24/20 Recorded zoster vaccine, inactivated 05/09/20 Recorded diphtheria/pertussis, acel/tetanus adult 05/09/20 Recorded pneumococcal 23-valent vaccine 05/25/18 Recorded pneumococcal 23-valent vaccine 04/26/18 Recorded pneumococcal 13-valent vaccine 08/04/17 Recorded 1Result Comment: COvid 19 mRNA, [address]-S pfizer trus sucrose 2Result Comment: covid 19 eneida sucrose pfizer 3Result Comment: RSV Medications albuterol 0.083% Inh Kasie 3 mL See Instructions, 300 mL, Refill(s) 3, INHALE 1 VIAL VIA NEBULIZER EVERY 4 HOURS, [id number], 168, cm, 08/25/24 11:21:00 EST, Height/Length Dosing, 101.3, kg, 08/25/24 11:21:00 EST, Weight Dosing Start Date: 11/01/24 Status: Ordered Quantity: 300.0 Unit: mL Repeat number: 1 aspirin 81 mg Oral EC Tab 81 mg = 1 tab(s), Oral, Daily, Refills(s) 0 Start Date: 05/11/23 Status: Ordered Repeat number: 1 budesonide 0.5 mg/2 mL Inh Susp See Instructions, USE 1 VIAL VIA NEBULIZER TWICE A DAY, # 360 mL, Refills(s) 3, Pharmacy: [id number], 168, cm, 04/22/24 10:00:00 EDT, Height/Length Dosing, 101.4, kg, 04/22/24 10:00:00 EDT, Weight Dosing Start Date: 04/29/24 Status: Ordered Quantity: 360.0 Unit: mL Repeat number: 1 calcium-vitamin D Start Date: 02/24/19 Status: Ordered Repeat number: 1 cetirizine 10 mg Tab 10 mg = 1 tab(s), Oral, Daily, # 90 tab(s), Refills(s) 0, Pharmacy: [facility], 168, cm, 11/24/24 13:08:00 EDT, Height/Length Dosing, 100.3, kg, 11/24/24 13:08:00 EDT, Weight Dosing Start Date: 11/24/24 Status: Ordered Quantity: 90.0 Unit: tab(s) Repeat number: 1 Electric scooter Electric scooter, See Instructions, 1 EA, 0, For Debility, Supply Start Date: 05/17/24 Status: Ordered Quantity: 1.0 Unit: EA Repeat number: 1 Indications: Unspecified hearing loss, unspecified ear; furosemide 40 mg Tab 40 mg = 1 tab(s), Oral, Daily, Refills(s) 0 Start Date: 01/22/23 Status: Ordered Repeat number: 1 Handicap Placard, 5 years. Handicap Placard, 5 years., See Instructions, 1 EA, 0, Handicap Placard, 5 years., Supply Start Date: 10/19/23 Status: Ordered Quantity: 1.0 Unit: EA Repeat number: 1 Indications: Nutritional anemia, unspecified; Pulmonary hypertension, unspecified; Other reduced mobility; Personal history of nicotine dependence; Hypothyroidism, unspecified; Chronic obstructive pulmonary disease, unspecified; Chronic respiratory failure with hypoxia; Other obesity due to excess calories; Presence of cardiac pacemaker; Body mass index [BMI] 35.0-35.9, adult; Hyper-Flaco 3.5% inhalation solution See Instructions, Refill(s) 0, per neulizer BID, skip one dose with increased swelling in feet- perpatient Start Date: 02/15/24 Status: Ordered Repeat number: 1 levothyroxine 100 mcg (0.1 mg) Tab See Instructions, TAKE 1 TABLET BY MOUTH EVERY DAY, # 90 tab(s), Refills(s) 0, Pharmacy: [id number], 168, cm, 11/24/24 13:08:00 EDT, Height/Length Dosing, 100.3, kg, 11/24/24 13:08:00 EDT, Weight Dosing Start Date: 01/31/25 Status: Ordered Quantity: 90.0 Unit: tab(s) Repeat number: 1 metoprolol 25 mg ER Tab 25 mg = 1 tab(s), Oral, Daily, # 30 tab(s), Refills(s) 0 Start Date: 10/28/22 Status: Ordered Quantity: 30.0 Unit: tab(s) Repeat number: 1 montelukast 10 mg Tab Refills(s) 0 Start Date: 04/22/24 Status: Ordered Repeat number: 1 Nebulizer accessory set Nebulizer accessory set, See Instructions, 1 EA, 0, pt to use nebulizer as prescribed for COPD, [facility] ([facility] Supply, 162, cm, 01/22/23 13:19:00 EDT, Height/Length Dosing, 98.3, kg, 01/22/23 13:19:00 EDT, Weight Dosing Start Date: 01/22/23 Status: Ordered Quantity: 1.0 Unit: EA Repeat number: 1 Indications: Unspecified mononeuropathy of unspecified upper limb; Nodular prostate without lower urinary tract symptoms; Chronic obstructive pulmonary disease, unspecified; Hypothyroidism, unspecified; Oxygen - for Home 4 L/min, Daily, Refill(s) 0, Oxygen - patient states his laser beam cutter just increased this to 4LPM Start Date: 02/15/24 Status: Ordered Repeat number: 1 potassium chloride 10 mEq Cap-ER 10 mEq = 1 cap(s), Oral, Daily, # 90 cap(s), Refills(s) 4, Pharmacy: [facility], 168, cm, 04/22/24 10:00:00 EDT, Height/Length Dosing, 101.4, kg, 04/22/24 10:00:00 EDT, Weight Dosing Start Date: 05/02/24 Status: Ordered Quantity: 90.0 Unit: cap(s) Repeat number: 5 Tezspire Pre-filled Pen 210 mg/1.91 mL subcutaneous solution 210 mg, SubCutaneous, q4wk, patient not sure of dose, Refills(s) 0 Start Date: 02/15/24 Status: Ordered Repeat number: 1 tiotropium 18 mcg Inh Cap See Instructions, INHALE 2 INHALATIONS FROM THE CONTENTS OF 1 CAPSULE BY MOUTH VIA INHALATION DEVICE ONCE DAILY, # 90 cap(s), Refills(s) 3, Pharmacy: [facility], 168, cm, 08/25/24 11:21:00 EST, Height/Length Dosing, 101.3, kg, 08/25/24 11:21:00 EST, Weight Dosing Start Date: 10/27/24 Status: Ordered Quantity: 90.0 Unit: cap(s) Repeat number: 1 Vitamin B12 Start Date: 02/24/19 Status: Ordered Repeat number: 1 Problem List Condition Confirmation Course Effective Dates Status Health Status Informant COPD with asthma Confirmed Active Asymptomatic microscopic hematuria Confirmed Active Back pain Confirmed Active BPH with urinary obstruction Confirmed Active BMI 34.0-34.9,adult Confirmed Active Cardiac pacemaker in situ 1 Confirmed Active Chronic diastolic heart failure 2 Confirmed Active Chronic hypoxic respiratory failure Confirmed Active Chronic kidney disease, stage 3a Confirmed Active B12 deficiency Confirmed Active Essential tremor Confirmed Active Former smoker Confirmed Active Hearing loss Confirmed Active Ventral hernia Confirmed Active History of B-cell lymphoma Confirmed Active Hx of cerebrovascular disorder Confirmed Active History of prostate cancer Confirmed Active Hyperglycemia Confirmed Active Hypothyroid Confirmed Active Macrocytic anemia 3 Confirmed Active Mass of leg Confirmed Active MGUS (monoclonal gammopathy of unknown significance) Confirmed Active Neuropathy, arm Confirmed Active JUANA (obstructive sleep apnea) Confirmed Active Prostate nodule Confirmed Active Pulmonary hypertension 4 Confirmed Active Severe obesity 5 Confirmed Resolved Decreased ambulation status Confirmed Active Compression fracture of thoracic vertebra with routine healing, unspecified thoracic vertebral level, subsequent encounter Confirmed Active 1noted in 07/28/2023 Cardiology Consult Note page 1. added per OP [facility] policy. 2Noted in 05/21/2023 [place] page 1, added per outpatient CDI policy. 3noted in 07/21/2023 Cardiology Consult Note page 4. added per OP [facility]I policy. 4Noted in 05/21/2023 [place] page 1, added per outpatient CDI policy. 5Noted in 05/21/2023 [place] page 1 note, added per outpatient CDI policy. Procedures Procedure Date Related Diagnosis Body Site Status Cystoscopy 03/31/23 Completed Cardiac pacemaker 2019 Complet ed Transrectal biopsy of prosta te using ultrasound (US) guidance 03/10/19 Complet ed Cystourethroscopy 03/12/10 Complet ed Lymphadenectomy of sentinel lymph node 08/17/06 Completed Cancer of skin, head and left cheek Completed Skin cancer Completed Social History Social History Type Response Smoking Status Former smoker, quit more than 30 days ago;Never; Concerns about tobacco use in household: No; Smoking Cessation Yes 1, 2 entered on: 02/15/25 Sex Male Sex Representation Male (finding) 1denies use. Former smoker. Quit 1987. 2Patient states he smoked cigarettes, 1 PPD from about 22 years old until about 42 years old. Hospital Discharge Instructions Patient Education 02/15/2025 11:31:16 BMI for Adults BMI for Adults Body mass index (BMI) [...] measurements used for? BMI is useful to: ??? Find out if your weight puts you at higher risk for medical problems. ??? Help recommend changes, such as in diet and exercise. This can help you reach a healthy weight.BMI screening can be done again to see if these changes are working. How is BMI calculated? Your height and weight are measured. The BMI is found from those numbers. This can be done with U.S. or metric measurements. Note that charts and online BMI calculators are available to help you findyour BMI quickly and easily without doing these calculations. To calculate your BMI in U.S. measurements: 1. Measure your weight in pounds (lb). 2. Multiply the number of pounds by 703. ??? So, for an adult who weighs 150 lb, multiply that number by 703: 150 x 703, which equals 105,450. 3. Measure your height in inches. Then multiply that number by itself to get a measurement called inches squared. ??? So, for an adult who is 70 inches tall, the inches squared measurement is 70 inches x 70 inches, which equals 4,900 inches squared. 4. Divide the total from step 2 (number of lb x 703) by the total from step 3 (inches squared): 105,450 ?? 4,900 = 21.5. This is your BMI. To calculate your BMI in metric measurements: 1. Measure your weight in kilograms (kg). ??? For this example, the weight is 70 kg. 2. Measure your height in meters (m). Then multiply that number by itself to get a measurement called meters squared. ??? So, for an adult who is 1.75 m tall, the meters squared measurement is 1.75 m x 1.75 m, whichequals 3.1 meters squared. 3. Divide the number of kilograms (your weight) by the meters squared number. In this example: 70 ?? 3.1 = 22.6. This is your BMI. What do the results mean? BMI charts are used to see if you are underweight, normal weight, overweight, or obese. The following guidelines will be used: ??? Underweight: BMI less than 18.5. ??? Normal weight: BMI between 18.5 and 24.9. ??? Overweight: BMI between 25 and 29.9. ??? Obese: BMI of 30 or above. BMI is a tool and cannot diagnose a condition. Talk with your health care provider about what your BMI means for you. Keep these notes in mind: ??? Weight includes fat and muscle. Someone with a muscular build, such as an athlete, may have a BMI that is higher than 24.9. In cases like these, BMI is not a correct measure of body fat. ??? If you have a BMI of 25 or higher, your provider may need to do more testing to find out if excess body fat is the cause. ??? BMI is measured the same way for males and females. Females usually have more body fat than males of the same height and weight. Where to find more information For more information about BMI, including tools to quickly find your BMI, go to: ??? Centers for Disease Control and Prevention: cdc.gov ??? [place] Heart Association: heart.org ??? National Heart, Lung, and Blood [place]: nhlbi.nih.gov This information is not intended to replace advice given to you by your health care provider. Make sure you discuss any questions you have with your health care provider. Document Revised: 04/23/2023 Document Reviewed: 04/16/2023 [place] Patient Education ?? 2023 [employer]. 02/15/2025 11:30:50 Hypothyroidism Hypothyroidism Hypothyroidism is when the thyroid gland does not make enough of certain hormones. This is called an underactive thyroid. The thyroid gland is a small gland located in the lower front part of the neck, just in front of the windpipe (trachea). This gland makes hormones that help control how the bodyuses food for energy (metabolism) as well as how the heart and brain function. These hormones also play a role in keeping your bones strong. When the thyroid is underactive, it produces too little ofthe hormones thyroxine (T4) and triiodothyronine (T3). What are the causes? This condition may be caused by: ??? Alisha's disease. This is a disease in which the body's disease-fighting system (immune system) attacks the thyroid gland. This is the most common cause. ??? Viral infections. ??? . ??? Certain medicines. ??? defects. ??? Problems with a gland in the center of the brain (pituitary gland). ??? Lack of enough iodine in the diet. Other causes may include: ??? Past radiation treatments to the head or neck for cancer. ??? Past treatment with radioactive iodine. ??? Past exposure to radiation in the environment. ??? Past surgical removal of part or all of the thyroid. What increases the risk? You are more likely to develop this condition if: ??? You are female. ??? You have a family history of thyroid conditions. ??? You use a medicine called lithium. ??? You take medicines that affect the immune system (immunosuppressants). What are the signs or symptoms? Common symptoms of this condition include: ??? Not being able to tolerate cold. ??? Feeling as though you have no energy (lethargy). ??? Lack of appetite. ??? Constipation. ??? Sadness or depression. ??? Weight gain that is not explained by a change in diet or exercise habits. ??? Menstrual irregularity. ??? Dry skin, coarse hair, or brittle nails. Other symptoms may include: ??? Muscle pain. ??? Slowing of thought processes. ??? Poor memory. How is this diagnosed? This condition may be diagnosed based on: ??? Your symptoms, your medical history, and a physical exam. ??? Blood tests. You may also have imaging tests, such as an ultrasound or MRI. How is this treated? This condition is treated with medicine that replaces the thyroid hormones that your body does not make. After you begin treatment, it may take several weeks for symptoms to go away. Follow these instructions at home: ??? Take cedi-mqb-jgcyiym and prescription medicines only as told by your health care provider. ??? If you start taking any new medicines, tell your health care provider. ??? Keep all follow-up visits as told by your health care provider. This is important. ??? As your condition improves, your dosage of thyroid hormone medicine may change. ??? You will need to have blood tests regularly so that your health care provider can monitor your condition. Contact a health care provider if: ??? Your symptoms do not get better with treatment. ??? You are taking thyroid hormone replacement medicine and you: ??? Sweat a lot. ??? Have tremors. ??? Feel anxious. ??? Lose weight rapidly. ??? Cannot tolerate heat. ??? Have emotional swings. ??? Have diarrhea. ??? Feel weak. Get help right away if: ??? You have chest pain. ??? You have an irregular heartbeat. ??? You have a rapid heartbeat. ??? You have difficulty breathing. These symptoms may be an emergency. Get help right away. Call 911. ??? Do not wait to see if the symptoms will go away. ??? Do not drive yourself to the hospital. Summary ??? Hypothyroidism is when the thyroid gland does not make enough of certain hormones (it is underactive). ??? When the thyroid is underactive, it produces too little of the hormones thyroxine (T4) and triiodothyronine (T3). ??? The most common cause is Alisha's disease, a disease in which the body's disease-fighting system (immune system) attacks the thyroid gland. The condition can also be caused by viral infections, medicine, , or past radiation treatment to the head or neck. ??? Symptoms may include weight gain, dry skin, constipation, feeling as though you do not have energy, and not being able to tolerate cold. ??? This condition is treated with medicine to replace the thyroid hormones that your body does notmake. This information is not intended to replace advice given to you by your health care provider. Make sure you discuss any questions you have with your health care provider. Document Revised: 08/05/2022 Document Reviewed: 08/05/2022 [place] Patient Education ?? 2023 [employer]. 02/15/2025 11:30:40 Screening for Type 2 Diabetes Screening for Type 2 Diabetes A screening test for type 2 diabetes (type 2 diabetes mellitus) is a blood test to measure your blood sugar (glucose) level. This test is done to check for early signs of diabetes, before you developsymptoms. Type 2 diabetes is a long-term (chronic) disease. In type 2 diabetes, one or both of these problemsmay be present: ??? The pancreas does not make enough of a hormone called insulin. ??? Cells in the body do not respond properly to insulin that the body makes (insulin resistance). Normally, insulin allows blood sugar (glucose) to enter cells in the body. The cells use glucose for energy. Insulin resistance or lack of insulin causes excess glucose to build up in the blood instead of going into cells. This results in high blood glucose levels (hyperglycemia), which can cause many complications. You may be screened for type 2 diabetes as part of your regular health care, especially if you havea high risk for diabetes. Screening can help to identify type 2 diabetes at its early stage (prediabetes). Identifying and treating prediabetes may delay or prevent the development of type 2 diabetes. Tell a health care provider about: ??? All medicines you are taking, including vitamins, herbs, eye drops, creams, and pfud-tzh-gmdxapr medicines. ??? Any bleeding problems you have. ??? Any medical conditions you have. ??? Whether you are or may be . Who should be screened for type 2 diabetes? Adults ??? Adults age 35 and older. These adults should be screened once every three years. ??? Adults who are any age, are overweight, and have one other risk factor. These adults should be screened once every three years. ??? Adults who have normal blood glucose levels and two or more risk factors. These adults may be screened once every year (annually). ??? Women who have had gestational diabetes in the past. These women should be screened once every three years. ??? women who have risk factors. These women should be screened at their first visit and again between weeks 24 and 28 of . Children and adolescents ??? Children and adolescents should be screened for type 2 diabetes if they are overweight and haveany of the following risk factors: ??? A family history of type 2 diabetes. ??? Being a member of a high-risk ethnic group. ??? Signs of insulin resistance or conditions that are associated with insulin resistance. ??? A mother who had gestational diabetes while . ??? Screening should be done at least once every three years, starting at age 10 or at the onset ofpuberty, whichever comes first. Your health care provider or your child's health care provider may recommend having a screening more or less often. What are the risk factors for type 2 diabetes? The following are factors that may make you more likely to develop type 2 diabetes and can be modified: ??? Not getting enough exercise. ??? Having high blood pressure. ??? Having low levels of good cholesterol (HDL-C) or high levels of blood fats (triglycerides). ??? Having high blood glucose in a previous blood test. ??? Being overweight or obese. The following are factors that may make you more likely to develop type 2 diabetes and can not be modified: ??? Having a parent or sibling (first-degree relative) who has diabetes. ??? Being of [place], [place], /, , or descent. ??? Being older than age 45. ??? Having a history of diabetes during (gestational diabetes). ??? Having certain diseases or conditions that may be caused by insulin resistance, including: ??? Acanthosis nigricans. This is a condition that causes dark skin on the neck, armpits, and groin. ??? Polycystic ovary syndrome (PCOS). ??? Cardiovascular heart disease. What happens during screening? During screening, your health care provider may ask questions about: ??? Your health and your risk factors, including your activity level and any medical conditions that you have. ??? The health of your first-degree relatives. ??? Past pregnancies, if this applies. Your health care provider will also do a physical exam, including a blood pressure measurement and blood tests. There are four blood tests that can be used to screen for type 2 diabetes. You may haveone or more of the following: ??? A fasting blood glucose (FBG) test. You will not be allowed to eat (you will fast) for 8 hours or more before a blood sample is taken. ??? A random blood glucose test. This test checks your blood glucose at any time of the day regardless of when you ate. ??? An oral glucose tolerance test (OGTT). This test measures your blood glucose at two times: ??? After you have not eaten (have fasted) overnight. This is your baseline glucose level. ??? Two hours after you drink a glucose-containing beverage. ??? An A1C (hemoglobin A1C) blood test. This test provides information about blood glucose control over the previous 2???3 months. What do the results mean? Your test results are a measurement of how much glucose is in your blood. Normal blood glucose levels mean that you do not have diabetes or prediabetes. High blood glucose levels may mean that you have prediabetes or diabetes. Depending on the results, other tests may be needed to confirm the diagnosis. You may be diagnosed with type 2 diabetes if: ??? Your FBG level is 126 mg/dL (7.0 mmol/L) or higher. ??? Your random blood glucose level is 200 mg/dL (11.1 mmol/L) or higher. ??? Your A1C level is 6.5% or higher. ??? Your OGTT result is higher than 200 mg/dL (11.1 mmol/L). These blood tests may be repeated to confirm your diagnosis. Talk with your health care provider about what your results mean. Summary ??? A screening test for type 2 diabetes (type 2 diabetes mellitus) is a blood test to measure yourblood sugar (glucose) level. ??? Know what your risk factors are for developing type 2 diabetes. ??? If you are at risk, get screening tests as often as told by your health care provider. ??? Screening may help you identify type 2 diabetes at its early stage (prediabetes). Identifying and treating prediabetes may delay or prevent the development of type 2 diabetes. This information is not intended to replace advice given to you by your health care provider. Make sure you discuss any questions you have with your health care provider. Document Revised: 10/28/2021 Document Reviewed: 10/28/2021 [place] Patient Education ?? 2023 [employer]. 02/15/2025 11:30:19 Living With COPD Living with COPD Being diagnosed with chronic obstructive pulmonary disease (COPD) changes your life physically and emotionally. Having COPD can affect your ability to work and do things you enjoy. COPD is not the same for everyone, and it may private branch exchange operator time. Your health care providers can helpyou come up with the COPD management plan that works best for you. How to manage lifestyle changes Treatment plan ??? Work closely with your health care providers. ??? Follow your COPD management plan. This plan includes: ??? Instructions about activities, exercises, diet, medicines, what to do when COPD flares up, and when to call your health care provider. ??? A pulmonary rehabilitation program. In pulmonary rehab, you will learn about COPD, do exercisesfor fitness and breathing, and get support from health care providers and other people who have COPD. Managing emotions and stress Living with a chronic disease means you may also struggle with stressful emotions, such as sadness,fear, and worry. Here are some ways to manage these emotions: ??? Talk to someone about your fear, anxiety, depression, or stress. ??? Learn strategies to avoid or reduce stress and ask for help if you are struggling with depression or anxiety. ??? Consider joining a COPD support group, online or in person. Adjusting to changes COPD may limit the things you can do, but you can make certain changes to help you cope with the diagnosis. ??? Ask for help when you need it. Getting support from friends, family, and your health care team is an important part of managing the condition. ??? Try to get regular exercise as prescribed by a health care provider or pulmonary rehab team. Exercising can help COPD, even if you are a bit short of breath. ??? Take steps to prevent infection and protect your lungs: ??? Wash your hands often and avoid being in crowds. ??? Stay away from friends and family members who are sick. ??? Check your local air quality each day, and stay out of areas where air pollution is likely. How to recognize changes in your condition Recognizing changes in your COPD COPD is a progressive disease. It is important to let the health care team know if your COPD is getting worse. Your treatment plan may need to change. Watch for: ??? Increased shortness of breath, wheezing, cough, or fatigue. ??? Loss of ability to exercise or perform daily activities, like climbing stairs. ??? More frequent symptom flares. ??? Signs of depression or anxiety. Recognizing stress It is normal to have additional stress when you have COPD. However, prolonged stress and anxiety can make COPD worse and lead to depression. Recognize the warning signs, which include: ??? Feeling sad or worried more often or most of the time. ??? Having less energy and losing interest in pleasurable activities. ??? Changes in your appetite or sleeping patterns. ??? Being easily angered or irritated. ??? Having unexplained aches and pains, digestive problems, or headaches. Follow these instructions at home: Eating and drinking ??? Eat foods that are high in fiber, such as fresh fruits and vegetables, whole grains, and beans.Limit foods that are high in fat and processed sugars, such as fried or sweet foods. ??? Follow a balanced diet and maintain a healthy weight. Being overweight or underweight can make COPD worse. You may work with a dietitian as part of your pulmonary rehab program. ??? Drink enough fluid to keep your urine pale yellow. ??? If you drink alcohol: ??? Limit how much you have to: ??? 0???1 drink a day for women who are not . ??? 0???2 drinks a day for men. ??? Know how much alcohol is in your drink. In the [place] one drink equals one 12 oz bottle of beer (355 mL), one 5 oz glass of wine (148 mL), or one 1?? oz glass of hard liquor (44 mL). Lifestyle ??? If you smoke, the most important thing that you can do is to stop smoking. Continuing to smoke will cause the disease to progress faster. ??? Do not use any products that contain nicotine or tobacco. These products include cigarettes, chewing tobacco, and vaping devices, such as e-cigarettes. If you need help quitting, ask your health care provider. ??? Avoid exposure to things that irritate your lungs, such as smoke, chemicals, and fumes. Activity ??? Balance exercise and rest. Take short walks every 1???2 hours. This is important to improve blood flow and breathing. Ask for help if you feel weak or unsteady. ??? Do exercises that include controlled breathing with body movement, such as abbie chi. General instructions ??? Take rgdv-yia-makfzsz and prescription medicines only as told by your health care provider. ??? Take vitamin and protein supplements as told by your health care provider or dietitian. ??? Practice good oral hygiene and see your dental care provider regularly. An oral infection can also spread to your lungs. ??? Make sure you receive all the vaccines that your health care provider recommends. ??? Keep all follow-up visits. This is important. Contact a health care provider if you: ??? Are struggling to manage your COPD. ??? Have emotional stress that interferes with your ability to cope with COPD. Get help right away if you: ??? Have thoughts of suicide, , or hurting yourself or others. If you ever feel like you may hurt yourself or others, or have thoughts about taking your own life,get help right away. Go to your nearest emergency department or: ??? Call your local emergency services (691 in the [place] ??? Call a suicide crisis helpline, such as the National Suicide Prevention Lifeline at or 628 in the [place] This is open 24 hours a day in the [place] ??? Text the Crisis Text Line at 346321 (in the [place] Summary ??? Being diagnosed with chronic obstructive pulmonary disease (COPD) changes your life physically and emotionally. ??? Work with your health care providers and follow your COPD management plan. ??? A pulmonary rehabilitation program is an important part of COPD management. ??? Prolonged stress, anxiety, and depression can make COPD worse. ??? Let your health care provider know if emotional stress interferes with your ability to cope with and manage COPD. This information is not intended to replace advice given to you by your health care provider. Make sure you discuss any questions you have with your health care provider. Document Revised: 02/26/2022 Document Reviewed: 08/21/2021 [place] Patient Education ?? 2023 [employer]. 02/15/2025 11:29:45 Pulmonary Hypertension Pulmonary Hypertension Pulmonary hypertension is a long-term (chronic) condition in which there is high blood pressure in the blood vessels of the lungs (pulmonary arteries). This condition occurs when pulmonary arteries become narrow and tight, making it harder for blood to flow through the lungs. This in turn makes theheart work harder to pump blood through the lungs, making it harder for you to breathe. Over time, pulmonary hypertension can weaken and damage the heart muscle, specifically the right side of the heart. Pulmonary hypertension is a serious condition that can be life-threatening. What are the causes? This condition may be caused by different medical conditions. It can be categorized by cause into five groups: ??? Group 1: Pulmonary hypertension that is caused when the arteries in the lungs become narrowed, thickened, or stiff (pulmonary arterial hypertension). This may happen with no known cause, or it may be: ??? Passed from parent to child (hereditary). ??? Caused by another disease, such as a connective tissue disease (including lupus or scleroderma), congenital heart disease, liver disease, or HIV (human immunodeficiency virus). ??? Caused by certain medicines or poisons. ??? Group 2: Pulmonary hypertension that is caused by weakness of the left chamber of the heart (left ventricle) or heart valve disease. ??? Group 3: Pulmonary hypertension that is caused by chronic lung disease or low oxygen levels. Causes in this group include: ??? Emphysema or chronic obstructive pulmonary disease (COPD). ??? Untreated sleep apnea. ??? Pulmonary fibrosis. ??? Long-term exposure to high altitudes in certain people who may already be at higher risk for pulmonary hypertension. ??? Group 4: Pulmonary hypertension that is caused by blood clots in the lungs. ??? Group 5: Other causes of pulmonary hypertension, such as sickle cell anemia, sarcoidosis, abnormal growths of tissue (tumors) pressing on the pulmonary arteries, and various other diseases. What are the signs or symptoms? Symptoms of this condition include: ??? Shortness of breath. You may notice shortness of breath with: ??? Activity, such as walking. ??? Minimal activity, such as getting dressed. ??? No activity, like when you are sitting still. ??? A cough. Sometimes, bloody mucus from the lungs may be coughed up. ??? Tiredness. ??? Dizziness, light-headedness, or fainting, especially with physical activity. ??? Rapid heartbeat, or feeling your heart flutter or skip a beat (palpitations). ??? Veins in the neck getting larger. ??? Swelling of the lower legs, abdomen, or both. ??? Bluish color of the lips and fingertips. ??? Chest pain or tightness. ??? Abdominal pain, especially in the upper abdomen. How is this diagnosed? This condition may be diagnosed based on one or more of the following tests: ??? Blood tests. ??? Imaging tests, such as: ??? Chest X-ray. ??? CT scan. ??? Echocardiogram. This test uses sound waves (ultrasound) to produce an image of the heart. ??? Ventilation???perfusion scan. This test uses radioactive material to test how well air moves and blood flows in and out of the lungs. ??? Pulmonary function test. This test measures how much air your lungs can hold. It also tests howwell air moves in and out of your lungs. ??? 6-minute walk test. This tests how severe your condition is in relation to your activity levels. ??? ECG (electrocardiogram). This test records the electrical impulses of the heart. ??? Cardiac catheterization. This is a procedure in which a thin tube (catheter) is passed into thepulmonary artery and used to test the pressure in your pulmonary artery and the right side of your heart. ??? Lung biopsy. This involves having a procedure to remove a small sample of lung tissue for testing. This may help determine an underlying cause of your pulmonary hypertension. How is this treated? There is no cure for this condition, but treatment can help to relieve symptoms and slow the progress of the condition. Treatment may include: ??? Cardiac rehabilitation. This is a treatment program that includes exercise training, education,and counseling to help you get stronger and return to an active lifestyle. ??? Oxygen therapy. ??? Medicines that: ??? Lower blood pressure. ??? Relax (dilate) the pulmonary blood vessels. ??? Help the heart beat more efficiently and pump more blood. ??? Help the body get rid of extra fluid. ??? Thin the blood in order to prevent blood clots in the lungs. ??? Lung surgery to relieve pressure on the heart. This may be needed for severe cases that do not respond to medical treatment. ??? Heart???lung transplant, or lung transplant. This may be done in very severe cases. Follow these instructions at home: Eating and drinking ??? Eat a healthy diet that includes plenty of fresh fruits and vegetables, whole grains, and beans. ??? Limit your salt (sodium) intake to less than 2,300 mg a day. Activity ??? Get plenty of rest. ??? Exercise as directed. Talk with your health care provider about what type of exercise is safe for you. ??? Avoid sitting in hot tubs or saunas for long periods of time. ??? Avoid high altitudes. Lifestyle ??? Do not use any products that contain nicotine or tobacco. These products include cigarettes, chewing tobacco, and vaping devices, such as e-cigarettes. If you need help quitting, ask your health care provider. ??? Avoid secondhand smoke. General instructions ??? Take cpdn-tbp-dpvuwmc and prescription medicines only as told by your health care provider. Do not change or stop medicines without checking with your health care provider. ??? Stay up to date on your vaccines, especially yearly flu (influenza) and pneumonia vaccines. ??? If you are a woman of child-bearing age, avoid becoming . Talk with your health care provider about control. ??? Consider ways to get support for the anxiety and stress of living with pulmonary hypertension. Talk with your health care provider about support groups and online resources. ??? Use oxygen therapy at home as directed. ??? Keep track of your weight. Weight gain could be a sign that your condition is getting worse. ??? Keep all follow-up visits. This is important. Contact a health care provider if: ??? Your cough gets worse. ??? You have more shortness of breath than usual, or you start to have trouble doing activities that you could do before. ??? You need to use medicines or oxygen more frequently or in higher dosages than usual. Get help right away if: ??? You have severe shortness of breath. ??? You have chest pain or pressure. ??? You cough up blood. ??? You have swelling of your feet or legs that gets worse. ??? You have rapid weight gain over a period of 1???2 days. ??? Your medicines or oxygen do not provide relief. These symptoms may represent a serious problem that is an emergency. Do not wait to see if the symptoms will go away. Get medical help right away. Call your local emergency services (911 in the [place] Do not drive yourself to the hospital. Summary ??? Pulmonary hypertension is a long-term (chronic) condition in which there is high blood pressurein the blood vessels of the lungs (pulmonary arteries). ??? Pulmonary hypertension is a serious condition that can be life-threatening. It can be caused bya variety of illnesses. ??? Treatment may involve taking medicines and using oxygen therapy. Severe cases may require surgery or a transplant. This information is not intended to replace advice given to you by your health care provider. Make sure you discuss any questions you have with your health care provider. Document Revised: 06/17/2021 Document Reviewed: 06/17/2021 [employer] Patient Education ?? 2023 [employer]. Patient Care team information Care Team Personnel Name: Tres Queen Position: FT Burning Machine Operator - Self Assign Member Role: Ends Breakage Clerk Name: Marlys Carcamo Position: FT Ambulatory - Primary Care - HEIDI Member Role: Primary Care Physician Address: [address] [place] [address]- Telecom: Care Team Related Persons Name: FRANSISCO FOLEY Name: FRANSISCO FOLEY Insurance Providers Guarantor name: CHIKI Parsons [facility] [employer] Plan Information #: 1 Payer: [place] Payer Identifier: [id number] Member Number: [id number] Group Number: [id number] Subscriber Identifier: [id number] Relationship to Subscriber: Self Coverage Type: MEDICARE Coverage Verification Date: 25 Telecom: CHIOMA Address: NA
--- OUTSIDE RECORDS SUMMARY | 2025-02-16 23:59 | XMS_ITS | Continuity of Care Document ---
Author Organization [facility] Address [address] [place] [address] Care Team Providers Care Store Operations Manager Name Role Phone Marlys Olivia Primary Care Physician Encounter FT_GONZALO [id number] Date(s): 02/16/25 - 02/16/25 [facility] [address] [place] [id number]- Discharge Disposition: Home (Routine DC) Attending Physician: Marlys Carcamo Encounter Type: Clinic Allergies, Adverse Reactions, Alerts No Known Allergies Assessment and Plan Future Appointments Appointment Date:04/24/2025 09:45:00 AM Scheduled Provider:Oni MCKEON MD Location:[facility] Appointment Type:URO Office Visit Appointment Date:02/15/2026 09:30:00 AM Scheduled Provider: Location:[facility] Appointment Type:FM Medicare Wellness Subsequent Immunizations Given and Recorded Vaccine Date Status [...] RSV vaccine preF3, recombinant 03/21/24 Recorded SARSCoV2 mRNA(xkziyzhzs-whed-hrcfcz) vac 03/11/22 Recorded SARS-CoV-2 (COVID-19) mRNA BNT-162b2 [...] 1 VIAL VIA NEBULIZER EVERY 4 HOURS, [id number], 168, cm, 08/25/24 11:21:00 EST, Height/Length Dosing, [...] DAY, # 360 mL, Refills(s) 3, Pharmacy: [facility] [id number], 168, cm, 04/22/24 10:00:00 EDT, Height/Length Dosing, [...] DAY, # 90 tab(s), Refills(s) 0, Pharmacy: [id number], 168, cm, 11/24/24 13:08:00 EDT, Height/Length Dosing, [...] to use nebulizer as prescribed for COPD, [facility] ([facility] ), Supply, 162, cm, [...] Refill(s) 0, Oxygen - 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 Patient Care team information Care Team Personnel Name: Tres Queen Position: FT Manager Bar - Self Assign Member Role: Assistant Professor Of Psychology Name: Marlys Carcamo Position: FT Ambulatory - Primary Care - HEIDI Member Role: Primary Care Physician Address: [address] [place] [address]- Telecom: Care Team Related Persons Name: FRANSISCO FOLEY Name: FRANSISCO FOLEY Insurance Providers Guarantor name: [facility]IKI Parsons [facility] [employer] Plan Information #: 1 Payer: NA Payer Identifier: [id number] Member Number: [id number] Group Number: [id number] Subscriber Identifier: [id number] Relationship to Subscriber: Self Coverage Type: MEDICARE Coverage Verification Date: 25 Telecom: CHIOMA Address:
--- OUTSIDE RECORDS SUMMARY | 2025-02-16 23:59 | XMS_ITS | Continuity of Care Document ---
Author Organization [facility] Address Unknown Care Team Providers Care Computer Network Engineer Name Role Phone Marlys Olivia Primary Care Physician [phone] Encounter FT_[facility] [id number] Date(s): 02/16/25 - 02/16/[address] [address]- Discharge Disposition: Home (Routine DC) Attending Physician: Marlys Carcamo Admitting Physician: Marlys Carcamo Encounter Type: Lab Drop off Allergies, Adverse Reactions, Alerts No Known Allergies Assessment and Plan Future Appointments Appointment Date:04/24/2025 09:45:00 AM Scheduled Provider:Oni MCKEON MD Location:[facility] Appointment Type:URO Office Visit Appointment Date:02/15/2026 09:30:00 AM Scheduled Provider: Location:[facility] Appointment Type:FM Medicare Wellness Subsequent Diagnostic Tests Pending * HCV Antibody RFX to Quant PCR 02/16/25 Immunizations Given and Recorded Vaccine Date Status [...] RSV vaccine preF3, recombinant 03/21/24 Recorded SARSCoV2 mRNA(gnqpidkyy-guar-xzsgnd) vac 03/11/22 Recorded SARS-CoV-2 (COVID-19) mRNA BNT-162b2 [...] 1 VIAL VIA NEBULIZER EVERY 4 HOURS, [facility] 565[facility], 168, cm, 08/25/24 11:21:00 EST, Height/Length Dosing, [...] DAY, # 360 mL, Refills(s) 3, Pharmacy: [facility] [id number], 168, cm, 04/22/24 10:00:00 EDT, Height/Length Dosing, [...] DAY, # 90 tab(s), Refills(s) 0, Pharmacy: [facility] 538[facility], 168, cm, 11/24/24 13:08:00 EDT, Height/Length Dosing, [...] to use nebulizer as prescribed for COPD, [facility] ([facility] ), Supply, 162, cm, 01/22/23 [...] Refill(s) 0, 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 - 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 Start Date: 02/15/24 Status: Ordered Repeat number: 1 potassium chloride 10 mEq Cap-ER 10 mEq = 1 cap(s), Oral, Daily, # 90 cap(s), Refills(s) 4, Pharmacy: [facility], 168, cm, 04/22/24 10:00:00 EDT, [...] and left cheek Completed Skin cancer Completed Results Laboratory List Name Date Comprehensive Metabolic Panel (CMP) HgbA1c (Hemoglobin A1c) 02/16/25 Lipid Panel 02/16/25 Thyroid Stimulating Hormone (TSH) 02/16/25 eGFR 02/16/25 Most recent to oldest [Reference Range]: 1 A/G Ratio [1.1-2.2] 1.5 (02/16/25 11:18 AM) BUN/Creat Ratio [10-20] 17 (02/16/25 11:18 AM) AGAP [6-16 mEq/L] 11 mEq/L (02/16/25 11:18 AM) Albumin Lvl [3.3-5.0 gm/dL] 3.8 gm/dL (02/16/25 11:18 AM) Alk Phos [21-98 Int._Unit/L] 81 Int._Uni t/L (02/16/25 11:18 AM) ALT [6-46 Int._Unit/L] 8 Int._Unit/L (02/16/25 11:18 AM) AST [5-43 Int._Unit/L] 11 Int._Unit/L (02/16/25 11:18 AM) Bili Total [0.0-1.1 mg/dL] 0.5 mg/dL (02/16/25 11:18 AM) Chol [120-200 mg/dL] 166 mg/dL (02/16/25 11:18 AM) CO2 [21-31 mmol/L] 26 mmol/L (02/16/25 11:18 AM) Glucose Lvl [55-199 mg/dL] 104 mg/dL (02/16/25 11:18 AM) HDL 35 mg/dL 1 *NA* (02/16/25 11:18 AM) Sodium Lvl [135-145 mmol/L] 137 mmol/L (02/16/25 11:18 AM) Total Protein [6.0-7.8 gm/dL] 6.4 gm/dL (02/16/25 11:18 AM) Trig [<=149 mg/dL] 119 mg/dL (02/16/25 11:18 AM) TSH [0.34-5.60 mcIU/mL] 9.04 mcIU/mL *HI* (02/16/25 11:18 AM) BUN [5-21 mg/dL] 20 mg/dL (02/16/25 11:18 AM) Calcium Lvl [8.9-11.1 mg/dL] 8.8 mg/dL *LOW* (02/16/25 11:18 AM) Potassium Lvl [3.5-5.3 mmol/L] 4.2 mmol/ L (02/16/25 11:18 AM) LDL Direct [<=129 mg/dL] 113 mg/dL (02/16/25 11:18 AM) Chloride [101-111 mmol/L] 104 mmol/L (02/16/25 11:18 AM) eGFR [>=59 mL/min/1.73 m2] 62 mL/min/1.7 3 m2 (02/16/25 11:18 AM) Hgb A1C % [<=5.9 %] 6.0 % *HI* (02/16/25 11:18 AM) Globulin [1.4-4.0 gm/dL] 2.6 gm/dL (02/16/25 11:18 AM) VLDL [7-40 mg/dL] 24 mg/dL (02/16/25 11:18 AM) Creatinine [0.5-1.3 mg/dL] 1.2 mg/dL (02/16/25 11:18 AM) 1Result Comment: '>= 60 LOW RISK' '<= 40 HIGH RISK' Social History Social History Type Response Smoking [...] Team Personnel Name: Tres Queen Position: FT Rest Room Maid - Self Assign Member Role: Pitch Gatherer Name: Marlys Carcamo Position: FT Ambulatory - Primary Care - HEIDI Member Role: Primary Care Physician Address: [address] [place] [id number]- Telecom: Care Team Related Persons Name: FRANSISCO FOLEY Name: FRANSISCO FOLEY Insurance Providers Guarantor name: CHIKI Parsons [employer] Plan Information #: 1 Payer: NA Payer Identifier: [id number] Member Number: [id number] Group Number: [id number] Subscriber Identifier: [id number] Relationship to Subscriber: Self Coverage Type: MEDICARE Coverage Verification Date: [place] Telecom: [employer]IOMA Address: NA
[2025-03-02] VITALS (23 sets, daily range): BP systolic 105–136; BP diastolic 52–90; PULSE 80–95; TEMP 36.6–37; O2SAT 92–95; BMI 38.3; BMI 36.9
--- OUTSIDE RECORDS SUMMARY | 2025-03-02 13:01 | XMS_ITS | Clinical Summary ---
Author Organization [facility] Address [address] [place] [address] Care Team Providers Care Cement Tile Maker Name Role Phone Marshall Briceño MD Primary Care Provider [phone] Allergies Active Allergy Reactions Criticality Noted Date Comments Spironolactone Other: See Comments 09/18/2021 Leg cramps, Hyperkalemia Medications levothyroxine (SYNTHROID) 100 mcg tablet Take 100 mcg by mouth daily before breakfast. Active PROAIR HFA 90 mcg/actuation inhaler Inhale 1 Puff as instructed as needed. 6 Active polyethylene glycol 3350 (MIRALAX, GLYCOLAX) 17 gram/dose powder MIX 1 TABLESPOONFUL DIRECTED AND DRINK EVERY DAY 3 7 Active acetaminophen- codeine (TYLENOL-COD #3) 300-30 mg per tablet acetaminophen 300 mg-codeine 30 mg tablet Active budesonide (PULMICORT) 1 mg/2 mL nebulizer solution 2 mL. Active ipratropium-al buterol (DUONEB) 0.5 mg-3 mg(2.5 mg base)/3 mL nebu INHALE 1 VIAL VIA NEBULIZER EVERY 6 HOURS NEEDED *DX J44.9* 4 9 Active spironolactone (ALDACTONE) 50 mg tablet spironolactone 50 mg tablet Active tiotropium (SPIRIVA WITH HANDIHALER) 18 mcg inhalation capsule Active CALCIUM CITRATE-VITAMI N D3 ORAL Take by mouth. Activ e cyanocobalamin , vitamin B-12, (VITAMIN B-12 ORAL) Take by mouth. Active potassium chloride SR (MICRO-K) 10 mEq CR capsule 1 Active furosemide (LASIX) 20 mg tablet q 24 HR. 1 Active ferrous sulfate 325 mg (65 mg iron) tablet 1 Active influenza vaccine qs 240 mcg, Patients 65 years and older,, PF, (FLUZONE HIGHDOSE QUAD - PF) 240 mcg/0.7 mL injection Fluzone High-Dose Quad (PF) 240 mcg/0.7 mL IM syringe PHARMACY ADMINISTERED Active cholecalcifero l (VITAMIN D3) 1,000 unit tab tablet Take 1,000 Units by mouth. Active METOPROLOL SUCCINATE ORAL Take 25 mg by mouth once daily. Active doxycycline hyclate (VIBRAMYCIN) 100 mg capsule Take 100 mg by mouth once daily. Active salmeterol (SEREVENT DISKUS) 50 mcg/dose diskus inhaler Inhale 1 Puff as instructed twice daily. Active predniSONE (DELTASONE) 10 mg tablet Take 10 mg by mouth once daily. Active aspirin, enteric coated (ASPIRIN, ENTERIC COATED) 81 mg EC tablet Take 81 mg by mouth once daily. Active albuterol (PROVENTIL) 2.5 mg /3 mL (0.083 %) nebulizer solution albuterol sulfate 2.5 mg/3 mL (0.083 %) solution for nebulization INHALE 1 VIAL VIA NEBULIZER EVERY 4 HOURS 9 Active TEZSPIRE 210 mg/1.91 mL (110 mg/mL) injection 4 Active Active Problems Problem Noted Date Diagnosed Date B12 deficiency 07/13/2017 Diffuse large B cell lymphoma 02/21/2013 Immunizations Immunization Administration Dates Next Due COVID-19 original vaccine, a ge 12+ yr, monovalent (AT Internet - PURPLE TOP) 11/13/2020,10/22/2020 influenza (HD-IIV3) vaccine, age 65+ yr, high dose, trivalent, PF (FLUZONE HIGH-DOSE) 05/11/2023,04/26/2018,08/04/2017 influenza (HD-IIV4) vaccine, age 65+ yr, high dose, quadrivalent, PF (FLUZONE HIGH-DOSE) 05/24/2021,05/09/2020 influenza (IIV4) vaccine, ag e 6 mo - 64 yr, quadrivalent, PF (AFLURIA, FLUARIX, FLULAVAL, FLUZONE) 05/25/2018 influenza (LAIV) vaccine, na rickey, unspecified formulation 05/25/2018,04/26/2018,08/04/2017 influenza (aIIV3) vaccine, a ge 65+ yr, trivalent, PF (FLUAD) 04/16/2019 pneumococcal conjugate (PCV1 3) vaccine, 13 valent (PREVNAR 13) 08/04/2017 pneumococcal polysaccharide (PPV23) vaccine, 23 valent (PNEUMOVAX 23) 05/25/2018,04/26/2018 respiratory syncytial virus (RSV) vaccine, adjuvanted (AREXVY) 03/21/2024 tetanus diphtheria pertussis (Tdap) vaccine, age 7+ yr (ADACEL, BOOSTRIX) 05/09/2020 zoster (RZV) vaccine, recomb inant (SHINGRIX) 07/24/2020,07/22/2020,05/09/2020 Family History Medical History Relation Comments Cystic Fibrosis Brother Cancer Mother Relation Status Comments Brother Mother Social History Tobacco Use Types Packs/Day Years Used Date Smoking Tobacco: Former Cigarettes 1 20 0 09/06/1968 - 09/06/1988 Passive Smoke Exposure: Past Smokeless Tobacco: Never Tobacco Cessation:Counseling Given: Not Answered Alcohol Use Standard Drinks/Week Comments Yes 0 (1 standard drink = 0.6 oz pur e alcohol) rare PHQ-2 Answer Date Recorded PHQ-2 score 0 04/19/2024 Area Deprivation Index Answer Date Ranjit rded National Score (1-100), lower number is lower ri sk 87 06/06/2024 State Score (1-10), lower number is lower risk 8 06/06/2024 Data from: https://www.neighborhoodatlas.medicine.[facility].edu/. Last address used for calculation [address] [place] [address] [address] 06/06/2024 Sex and Gender Information Value Date Recorded Sex Assigned at Not on file Legal Sex Male 7:34 AM EST Gender Identity Not on file Sexual Orientation Not on file Last Filed Vital Signs Vital Sign Reading Time Taken Comments Blood Pressure 122/65 11/21/2024 3:05 PM EDT Pulse 83 11/21/2024 3:05 PM EDT Temperature 36.5 C (97.7 F) 11/21/2024 3:05 PM EDT Respiratory Rate 24 11/21/2024 3:05 PM EDT Oxygen Saturation 90% 11/21/2024 3:05 PM EDT Inhaled Oxygen Concentration - - Weight 97 kg (213 lb 13.5 oz) 11/21/2024 3:05 PM EDT Height 172.7 cm (5' 7.99 ) 04/19/2024 2:18 PM ED T Body Mass Index 32.52 04/19/2024 2:18 PM EDT Plan of Treatment Upcoming Encounters Date Type Department Care Team (Latest Contact Info) Description 05/22/2025 3:30 PM EDT Office Visit [facility] [address] [place] [address] [place] [address] 6 month lab 05/26/2025 3:00 PM EDT Visit (SP) Office Hematology/Oncology [address] [place] [address] [place] [address] Ginger Bean, ART INSTALLER.HAND SPLITTER [address] [place] [address] 6 month follow up / BRM pt Health Maintenance Due Date Last Done Comments Anxiety Screening 1963 Depression Screening 1963 Hepatitis C Screening 1963 Advance Directive Discussion 08/17/2024 Medicare Advantage Annual We llness Visit 08/17/2024 Covid-19 Vaccine (7 - Pfizer risk 2023- season) 2024 05/12/2024, 07/02/2023, 06/09/2023, Additional history exists Influenza Vaccine (#1) 2025 , 05/11/2023, 05/24/2021, Additional history exists Diabetes Screening 11/16/2027 11/15/2024, 0 04/19/2024, 01/21/2024, Additional history exists DTaP,Tdap,Td Vaccine (2 - Td or Tdap) 05/09/2030 05/09/2020 Pneumococcal Vaccine: 50+ Completed 2017, 04/26/2018, 08/04/2017 Shingrix Vaccine Completed 07/24/2020, 01/2020, 05/09/2020 RSV Vaccine Completed 03/21/2024 Procedures Procedure Name Priority Date/Time Associated Diagnosis Comments COMPREHENSIVE METABOLIC PANEL Routine 11/15/2024 1:39 PM EDT Diffuse large B-cell lymphoma, unspecified body region (HCC) from Last 3 Months or Most Recently Relevant to Health Maintenance Results * (ABNORMAL) COMPREHENSIVE METABOLIC PANEL (11/15/2024 1:39 PM EDT) Pathologist [facility] Protein, Total 6.8 6.3 - 8.0 g/dL 11/15/2024 2:43 PM EDT [facility] Albumin 3.8(L) 3.9 - 4.9 g/dL 11/15/2024 2:43 PM EDT [facility] Calcium, Total 9.3 8.5 - 10.2 mg/dL 11/15/2024 2:43 PM EDT [facility] Bilirubin, Total 0.4 0.2 - 1.3 mg/dL 11/15/2024 2:43 PM EDT [facility] Alkaline Phosphatase 83 38 - 113 U/L 11/15/2024 2:43 PM EDT [facility] AST 14 14 - 40 U/L 11/15/2024 2:43 PM EDT [facility] ALT 9(L) 10 - 54 U/L 11/15/2024 2:43 PM EDT [facility] Glucose 110(H) 74 - 99 mg/dL 11/15/2024 2:43 PM EDT [facility] Comment: The [place] Diabetes Association (ADA) provides guidance for cutoff [...] Standards of Medical Care in Diabetes 2016, [place] [employer] Association. Diabetes Care. 2016.39(Suppl 1). BUN 21 9 - 24 mg/dL 11/15/2024 2:43 PM EDT [facility] Creatinine 1.27(H) 0.73 - 1.22 mg/dL 11/15/2024 2:43 PM EDT [facility] Sodium 140 136 - 144 mmol/L 11/15/2024 2:43 PM EDT [facility] Potassium 4.0 3.7 - 5.1 mmol/L 11/15/2024 2:43 PM EDT [facility] Chloride 104 98 - 107 mmol/L 11/15/2024 2:43 PM EDT [facility] CO2 24 22 - 30 mmol/L 11/15/2024 2:43 PM EDT [facility] Anion Gap 12 8 - 15 mmol/L 11/15/2024 2:43 PM EDT [facility] Estimated Glomerular Filtration Rate 58(L) >=60 mL/min/1. 73m 11/15/2024 2:43 PM EDT [facility] Comment:Estimated Glomerular Filtration Rate (eGFR) is calculated using the 2020 CKD-EPI creatinine equation. This equation utilizes serum creatinine, sex, and age as parameters. The creatinine assay has traceable calibration to isotope dilution- mass spectrometry. Refer to KDIGO guidelines for clinical interpretation. In patients with unstable renal function, e.g. those with acute kidney injury, the eGFR may not accurately reflect actual GFR. Blood BLOOD SPECIMEN / Unknown Venipuncture / Unknown 11/15/2024 1:39 PM EDT 11/15/2024 1:58 PM EDT us Arabella Gayle ART INSTALLER.HAND SPLITTER LABORATORY Final Resul t [facility] [address] [place] [address] from Last 3 Months or Most Recently Relevant to Health Maintenance Insurance [facility] MEDICARE ADVANTAGE PPO Member Subscriber Plan / Payer (Ef fective 2023-Present) Name:Dorian Juarez Relation to Subscriber:Self Name:Dorian Juarez Payer ID:[id number] (NAIC) Type:PPO Address: [place] [id number] Care Teams Cement Tile Maker Relationship Specialty Start Date End Date Marshall Briceño MD [address] [place] [address] PCP - General Family Medicine 07/23/23
--- OUTSIDE RECORDS SUMMARY | 2025-03-02 13:01 | XMS_ITS | Clinical Summary ---
Author Organization [facility] Address [id number] [address] [place] [address] Care Team Providers Care Screw Driver Operator Name Role Phone Nanette Sherwood MD Primary Care Provider [phone] Allergies No known active allergies Medications CALCIUM CITRATE-VITAMIN D3 ORAL Take by mouth. Activ e cyanocobalamin, vitamin B-12, 1,000 mcg/mL drops Take by mouth. Activ e acetaminophen-c odeine (TYLENOL #3) 300-30 mg per tablet as needed. Active albuterol (PROVENTIL,VENT MARIA T) 2.5 mg /3 mL (0.083 %) nebulizer solution INHALE 1 VIAL VIA NEBULIZER EVERY 4 HOURS 06/18/20 20 Active albuterol (PROVENTIL,VENT MRAIA T) 2.5 mg /3 mL (0.083 %) nebulizer solution albuterol sulfate 2.5 mg/3 mL (0.083 %) solution for nebulization Active albuterol (PROAIR HFA) 90 mcg/actuation inhaler every 4 (four) hours. Active calcitonin, salmon, (MIACALCIN) 200 unit/actuation nasal spray as needed. Active budesonide (PULMICORT) 0.5 mg/2 mL nebulizer solution budesonide 0.5 mg/2 mL suspension for nebulization Active levoFLOXacin (LEVAQUIN) 500 mg tablet Take 500 mg by mouth daily with breakfast. 06/08/20 20 Active salmeteroL (SEREVENT) 50 mcg/dose diskus inhaler Inhale 1 puff 2 (two) times a day. Active tiotropium (SPIRIVA WITH HANDIHALER) 18 mcg per inhalation capsule Place 1 capsule into inhaler and inhale once daily. Active spironolactone (ALDACTONE) 50 mg tablet spironolactone 50 mg tablet TAKE 1 TABLET BY MOUTH DAILY WITH BREAKFAST AND 1 TABLET DAILY WITH LUNCH Active aspirin 81 mgIndications:C erebrovascular accident (CVA), unspecified mechanism (CMS-HCC) Take 1 tablet (81 mg total) by mouth daily. 30 tablet 5 08/03/20 Active amoxicillin (AMOXIL) 500 mg capsule Take 500 mg by mouth daily. 10/05/19 Active azithromycin (ZITHROMAX) 250 mg tablet Take 500 mg by mouth daily. 09/11/19 Active CEPHalexin (KEFLEX) 500 mg capsule Take 500 mg by mouth daily. 11/01/19 Active dexAMETHasone (DECADRON) 6 mg tablet Take 6 mg by mouth daily. 08/29/19 Active SYNTHROID 100 mcg tablet Take 100 mcg by mouth daily. 11/11/19 Active calcium carbonate (OS-RENETTA) 500 mg calcium (1,250 mg) tablet Take 1,250 mg by mouth daily. Active cholecalciferol (VITAMIN D3) 1,000 units tablet Take 1,000 Units by mouth daily. Active ferrous sulfate 325 (65 FE) mg tablet 05/16/20 Active furosemide (LASIX) 20 mg tablet daily. 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 complete 08/03/2020 Pulmonary emphysema 08/03/2020 Severe obesity (BMI 35.0-39.9) with comorbidity 08/03/2020 Family History Medical History Relation Name Comments Stroke Father Cancer Mother Relation Name Status Comments Father Mother Social History Tobacco Use Types Packs/Day Years Used Date Smoking Tobacco: Former Cigarettes Q uit: 07/17/1988 Smokeless Tobacco: Never Alcohol Use Standard Drinks/Week Comments Not Currently 0 (1 standard drink = 0.6 oz pur e alcohol) PHQ-2 Answer Date Recorded Total Score 3 08/03/2020 Childcare Answer Date Recorded Childcare Unknown 10/06/2019 Employment Answer Date Recorded Employment Unknown 10/06/2019 Purpose - Life Answer Date Recorded Purpose and direction in life Unknown Sex and Gender Information Value Date Recorded Sex Assigned at Not on file Legal Sex Male 8:14 AM EST Gender Identity Not on file Sexual Orientation Not on file Last Filed Vital Signs Vital Sign Reading Time Taken Comments Blood Pressure 136/60 07/31/2021 1:59 PM EST Pulse 81 07/31/2021 1:59 PM EST Temperature - - Respiratory Rate - - Oxygen Saturation - - Inhaled Oxygen Concentration - - Weight 98.4 kg (217 lb) 07/31/2021 1:59 PM EST Height 162.6 cm (5' 4 ) 07/31/2021 1:59 PM EST Body Mass Index 37.25 07/31/2021 1:59 PM EST Plan of Treatment Health Maintenance Due Date Last Done Comments Depression Screening 1957 Tobacco Screening 1957 Abdominal Aortic Aneurysm (A AA) Screen 2012 Fall Risk Screening 2012 COVID-19 Vaccine (2023-2 5 season) 2024 06/25/2021, 11/13/2020, 10/22/2020 Influenza Vaccine 04/17/2025 05/24/2021, , 04/16/2019, Additional history exists DTaP,Tdap and Td Vaccines (2 - Td or Tdap) 05/09/2030 05/09/2020 Zoster (Shingles) Vaccine Completed 07/24/2020, Medical Devices Not on file Insurance [employer] MEDICARE Care Teams Screw Driver Operator Relationship Specialty Start Date End Date Nanette Sherwood MD PCP - General Family Medicine 10/06/19
--- OUTSIDE RECORDS SUMMARY | 2025-03-02 13:01 | XMS_ITS ---
Author Organization [facility] Address [address] [place], [place] [id number] Care Team Providers Care Microfilm Operator Name Role Phone Marshall Briceño MD Primary Care Provider [phone] Active Problems Problem Noted Date Diagnosed Date B12 deficiency 07/13/2017 Diffuse large B cell lymphoma 02/21/2013 Current Treatment and Therapy Plans No current plan information found. Past Treatment and Therapy Plans
--- OUTSIDE RECORDS SUMMARY | 2025-03-02 13:02 | XMS_ITS | Encounter Summary ---
Author Organization [facility] Address [address] [place] [id number] Care Team Providers Care Sanitation Truck Cleaner Name Role Phone Nanette Sherwood MD Primary Care Provider [phone] Marshall Briceño MD Primary Care Provider [phone] Source Comments In the event this information is protected by the Federal Confidentiality of Alcohol and Drug AbusePatient Records regulations: The Federal rules restrict any use of the information to criminally investigate or prosecute any alcohol or drug abuse patient.[facility] Encounter Details Date Type Department Care Team (Latest Contact Info) Description 03/10/2019 H&P External-NonCCF Provider, External, JAY Do not enter address information under generic External Provider. Social History Tobacco Use Types Packs/Day Years Used Date Smoking Tobacco: Former Cigarettes Q uit: 09/06/1988 Smokeless Tobacco: Never Alcohol Use Standard Drinks/Week Comments No 0 (1 standard drink = 0.6 oz pur e alcohol) Sex and Gender Information Value Date Recorded Sex Assigned at Not on file Legal Sex Male 7:34 AM EST Gender Identity Not on file Sexual Orientation Not on file documented as of this encounter Functional Status * Are you deaf or do you have serious difficulty hearing? Answer Date of Assessment Author No 02/19/2015 11:13 AM Diae * Are you blind or do you have serious difficulty seeing, even when wearing glasses? Answer Date of Assessment Author No 02/19/2015 11:13 AM EDT Love * Do you have serious difficulty walking or climbing stairs? Answer Date of Assessment Author No 02/19/2015 11:13 AM EDT Love * Do you have difficulty dressing or bathing? Answer Date of Assessment Author Yes 02/19/2015 11:13 AM EDT Love * Because of a physical, mental, or emotional condition, do you have difficulty doing errands alone such as visiting a doctor's office or shopping? Answer Date of Assessment Author No 02/20/2014 11:24 AM Reynolds documented as of this encounter Mental Status * Because of a physical, mental, or emotional condition, do you have serious difficulty concentrating, remembering, or making decisions? Answer Entry Date Author No 02/19/2015 11:13 AM Reynolds documented in this encounter Plan of Treatment Upcoming Encounters Date Type Department Care Team (Latest Contact Info) Description 05/22/2025 3:30 PM EDT Office Visit [facility] [address] [place] [address] 6 month lab 05/26/2025 3:00 PM EDT Visit (SP) Office Hematology/Oncology [address] [place] [address] Ginger Bean APRN.CLINICAL LABORATORY TECHNOLOGIST [address] [place] [address] 6 month follow up / BRM pt documented as of this encounter Visit Diagnoses Not on filedocumented in this encounter Care Teams Sanitation Truck Cleaner Relationship Specialty Start Date End Date Nanette Sherwood MD [address] [place] [address] PCP - General 08/01/05 07/22/23 Marshall Briceño MD [address] [place] [address] PCP - General Family Medicine 07/23/23 documented as of this encounter
--- OUTSIDE RECORDS SUMMARY | 2025-03-02 13:02 | XMS_ITS | Clinical Summary ---
Author Organization [facility] Address [address] [place] [address] Care Team Providers Care Blanker Press Operator Name Role Phone Edwige Taylor PA Unavailable [phone] Connor Muñoz DO Unavailable [phone] Marshall Briceño MD Primary Care Provider [phone] Allergies Active Allergy Reactions Criticality Noted Date Comments Latex Rash Low 02/02/2025 Medications Spiriva HandiHaler 18 MCG inhalation capsule Active Tezspire 210 MG/1.91ML solution auto-injector 4 Active spironolactone (Aldactone) 50 MG tablet Active sodium chloride 7 % nebulizer solution nebulizer solution 4 Active HyperSal 3.5 % nebulizer solution nebulizer solution Inhale 4 mL in the morning and 4 mL in the evening. 4 Active Serevent Diskus 50 MCG/ACT aerosol powder Inhale 1 puff in the morning and 1 puff in the evening. Active predniSONE (Deltasone) 10 MG tablet Take 10 mg by mouth in the morning. Active potassium chloride ER (Micro-K) 10 MEQ ER capsule Take 10 mEq by mouth 3 Active montelukast (Singulair) 10 MG tablet Take 10 mg by mouth Daily Active metoprolol succinate XL (Toprol-XL) 25 MG 24 hr tablet Take 25 mg by mouth at bedtime 3 Active loratadine (Claritin) 10 MG tablet Take 1 tablet by mouth Daily Active levothyroxine (Synthroid, Levoxyl) 100 MCG tablet Take 100 mcg by mouth Daily Active ipratropium-alb uterol (Duo-Neb) 0.5-2.5 mg/3 mL nebulizer solution every 6 (six) hours Active ipratropium (Atrovent) 0.06 % nasal spray Administer 2 sprays into affected nostril(s) in the morning and 2 sprays in the evening. 4 Active gabapentin (Neurontin) 300 MG capsule Take 300 mg by mouth at bedtime 3 Active furosemide (Lasix) 40 MG tablet Take 1 tablet by mouth Daily Active doxycycline (Vibramycin) 100 MG capsule Take 100 mg by mouth in the morning. Active Cyanocobalamin (Vitamin B 12) 100 MCG lozenge Acti ve cyanocobalamin (Vitamin B-12) 1000 MCG tablet Take 1,000 mcg by mouth in the morning. Active cholecalciferol (Vitamin D-[address]) 25 MCG (1000 UT) tablet Take 1,000 Units by mouth Active calcium carbonate 1500 (600 Ca) MG tablet every 12 (twelve) hours Active calcitonin, salmon, (Miacalcin) 200 UNIT/ACT nasal spray 1 spray 1 (one) time each day at the same time Active budesonide (Pulmicort) 0.5 MG/2ML nebulizer solution Active budesonide (Pulmicort) 1 MG/2ML nebulizer solution 2 mL 4 Active azelastine (Astelin) 0.1 % nasal spray Administer 1 spray into affected nostril(s) in the morning and 1 spray in the evening. 4 Active aspirin 81 MG EC tablet Take 81 mg by mouth in the morning. Active albuterol HFA 90 mcg/act inhaler Inhale 2 puffs Daily as needed 4 Active albuterol (2.5 MG/3ML) 0.083% nebulizer solution Active acetaminophen-c odeine (Tylenol w/ Codeine #3) 300-30 MG tablet Active Fluticasone-Flaco meterol 500-50 MCG/ACT aerosol powder 1 puff every 12 (twelve) hours Active Ciclopirox 1 % shampooIndicati ons:Other seborrheic dermatitis Lather on wet hair, leave on 5 min, rinse 2-3 x week, 30 day supply 120 mL 11 5 Active Tezepelumab-ekk o (Tezspire) 210 MG/1.91ML solution auto-injector Inject 210 mg under the skin every 28 (twenty-eight) days 4 02/02/20 25 Active Problems No known active problems Resolved Problems Problem Noted Date Diagnosed Date Resolved Date History of lymphoma 05/31/2024 05/31/20 24 Hyperglycemia 05/31/2024 05/31/2024 Macrocytic anemia 05/31/2024 05/31/2024 Overview (05/31/2024): noted in 07/21/2023 Cardiology Consult Note page 4. added per OP CDI policy. Moderate persistent asthma w ithout complication 05/31/2024 05/31/2024 Other chronic pain 05/31/2024 Compression fracture of thor acic vertebra with routine healing 05/31/2024 05/31/2024 Obesity due to excess calories 05/31/2024 05/31/2024 Chronic hypoxic respiratory failure 04/15/2024 05/31/2024 Chronic kidney disease, stage 3a 04/15/2024 05/31/2024 Mass of leg 04/15/2024 05/31/2024 JUANA (obstructive sleep apnea) 04/15/2024 05/31/2024 Decreased ambulation status 09/09/2023 05/31/2024 MGUS (monoclonal gammopathy of unknown significance) 09/09/2023 05/31/2024 Chronic diastolic heart failure 07/28/2023 05/31/2024 Overview (05/31/2024): Noted in 05/21/2023 UT page 1, added per outpatient CDI policy. Abnormal CT scan 07/02/2023 05/31/2024 Chronic sinusitis 07/02/2023 05/31/2024 Edema of both upper arms 07/02/2023 Pulmonary hypertension 07/02/202305/31 Overview (05/31/2024): Noted in 05/21/2023 UT page 1, added per outpatient CDI policy. 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 05/21/2023 05/31/2024 Benign prostatic hyperplasia with urinary obstruction 05/21/2023 05/31/2024 Former smoker 05/21/2023 05/31/2024 Hearing loss 05/21/2023 05/31/2024 High prostate specific antigen (PSA) 05/21/2023 05/31/2024 History of B-cell lymphoma 05/21/2023 1 History of malignant neoplasm of prostate 05/21/2023 05/31/2024 Kidney stone 05/21/2023 05/31/2024 Lymphoma 05/21/2023 05/31/2024 Malignant neoplasm of prostate 05/21/2023 05/31/2024 Microscopic hematuria 05/21/20232023 Nasal congestion 05/21/2023 05/31/2024 Neuropathy, arm 05/21/2023 05/31/2024 Poor urinary stream 05/21/2023 05/31/20 Prostate nodule 05/21/2023 05/31/2024 Ventral hernia 05/21/2023 05/31/2024 Bilateral leg edema 08/06/2022 05/31/20 24 Cardiac pacemaker in situ 05/23/2022 Overview (05/31/2024): noted in 07/28/2023 Cardiology Consult Note page 1. added per OP CDI policy. History of cerebrovascular accident 05/23/2022 05/31/2024 Mixed hyperglyceridemia 05/23/202205/17 Benign essential tremor 07/31/202105/17 Cough 07/17/2021 05/31/2024 Dyspnea 07/17/2021 05/31/2024 Recurrent pneumonia 07/17/2021 05/31/20 24 Cerebrovascular accident (CVA) 08/03/2020 05/31/2024 Complete atrioventricular block 08/03/2020 05/31/2024 Left temporal lobe infarction 08/03/2020 05/31/2024 Severe obesity (BMI 35.0-39. 9) with comorbidity 08/03/2020 05/31/2024 B-cell lymphoma 11/23/2018 05/31/2024 Hypoxia 11/23/2018 05/31/2024 Hypothyroidism 11/23/2018 05/31/2024 B12 deficiency 07/13/2017 05/31/2024 Diffuse large B cell lymphoma 02/21/2013 05/31/2024 Encounters Date Type Department Care Team Description 02/02/2025 1:20 PM EDT Office Visit [facility] [address] [place] [address] Edwige Taylor PA Melanocytic nevus of trunk (Primary Dx); History of SCC (squamous cell carcinoma) of skin; Seborrheic keratosis; Actinic keratosis; Cárdenas angioma; Other seborrheic dermatitis 02/02/2025 Bamboo flowsheet [facility] [address] [place] [address] Edwige Taylor PA 02/02/2025 Travel from Last 3 Months Immunizations Immunization Administration Dates Next Due Influenza, High Dose Seasona l, Preservative Free 05/12/2024,05/11/2023,04/26/2018 Influenza, High-dose Seasona l, Quadrivalent, Preservative Free 05/24/2021,05/09/2020 Influenza, Unspecified 08/04/2017 Influenza, injectable, quadr ivalent, preservative free 05/25/2018 Influenza, trivalent, adjuvanted 04/16/2019 Pneumococcal Conjugate PCV 13 08/04/2017 Pneumococcal Polysaccharide PPSV23 05/25/2018, RSV, recombinant, protein fountain bunit RSVpreF, adjuvant reconstitu, 120mcg/0.5mL, PF (Arexvy) 03/21/2024 Tdap 05/09/2020 Zoster, Recombinant 07/24/2020,07/22/2020,2019 Social History Tobacco Use Types Packs/Day Years Used Date Smoking Tobacco: Former Cigarettes Passive Smoke Exposure: Never Smokeless Tobacco: Never Tobacco Cessation:Counseling Given: Not Answered Alcohol Use Standard Drinks/Week Comments Defer 0 (1 standard drink = 0.6 oz pur e alcohol) Sex and Gender Information Value Date Recorded Sex Assigned at Not on file Legal Sex Male 8:35 PM EDT Gender Identity Not on file Sexual Orientation Not on file Last Filed Vital Signs Vital Sign Reading Time Taken Comments Blood Pressure 162/70 09/09/2018 12:00 PM EST Pulse - - Temperature - - Respiratory Rate - - Oxygen Saturation - - Inhaled Oxygen Concentration - - Weight 99.8 kg (220 lb) 06/20/2024 8:42 AM EST Height 162.6 cm (5' 4 ) 06/20/2024 8:42 AM EST Body Mass Index 37.76 06/20/2024 8:42 AM EST Plan of Treatment Upcoming Encounters Date Type Department Care Team (Late st Contact Info) Description 08/03/2025 1:10 PM EST Office Visit [facility] [address] [place] [address] Edwige Taylor PA [address] [place] [address] Health Maintenance Due Date Last Done Comments Influenza Vaccine (#1) 2025 , 05/11/2023, 05/24/2021, Additional history exists Pneumococcal Vaccine: 65+ Years Completed 05/25/2018, 04/26/2018, 08/04/2017 Procedures Procedure Name Priority Date/Time Associated Diagnosis Comments CRYOTHERAPY SKIN LESION Routine 02/02/2025 1:49 P M EDT Actinic keratosis from Last 3 Months Results * Cryotherapy, skin lesion (02/02/2025 1:49 PM EDT) [facility] PROCEDURE ORDERABLES Soledad l Result from Last [address] [place] [address] [employer] MED[employer]ARE Care Teams Blanker Press Operator Relationship Specialty Start Date End Date Marshall Briceño MD [address] [place] [address] PCP - General Family Medicine 05/31/24 Edwige Taylor PA [address] [id number] Physician Flame Degreaser Dermatology 05/31/24 Connor Muñoz DO [address] [place] [address] Otolaryngology 05/31/24
--- OUTSIDE RECORDS SUMMARY | 2025-03-02 13:02 | XMS_ITS | Encounter Summary ---
Author Organization [facility] Address [address] [place] [address] Care Team Providers Care Senior Ux Developer Name Role Phone Marshall Briceño MD Primary Care Provider Encounter Details Date Type Department Care Team (Late st Contact Info) Description 01/28/2025 Orders Only [facility] [address] [place] [address] Connor Roberts MD [address] [place] [address] Social History Tobacco Use Types Packs/Day Years Used Date Smoking Tobacco: Former Cigarettes Alcohol Use Standard Drinks/Week Comments Never 0 (1 standard drink = 0.6 oz pur e alcohol) [place] Safety & Environment Answer Date Rec orded Fear of Current or Ex-Partner Not on file Emotionally Abused Not on file 10/08/2023 Physically Abused Not on file 10/08/2023 Sexually Abused Not on file 10/08/2023 Physically or Sexually Abused Not on file Sex and Gender Information Value Date Recorded Sex Assigned at Not on file Legal Sex Male 11:54 PM EDT Gender Identity Not on file Sexual Orientation Not on file documented as of this encounter Plan of Treatment Not on file documented as of this encounter Procedures Procedure Name Priority Date/Time Associated Diagnosis Comments CARDIAC DEVICE CHECK - REMOTE - PACEMAKER Routine 01/28/2025 12:00 AM EDT documented in this encounter Results * Cardiac device check - Remote pacemaker (01/28/2025 12:00 AM EDT) Anatomical Region Laterality Modality Other 01/28/2025 Connor Roberts MD CV IMPLANTABLE CARDIAC DEVICE [place] OCEDURES Final Result documented in this encounter Visit Diagnoses Not on filedocumented in this encounter Care Teams Senior Ux Developer Relationship Specialty Start Date End Date Marshall Briceño MD [address] [place] [address] PCP - General Family Medicine 05/21/23 documented as of this encounter
--- OUTSIDE RECORDS SUMMARY | 2025-03-02 13:02 | XMS_ITS | Encounter Summary ---
Author Organization [facility] Address [address] [place] [address] Care Team Providers Care Food Service Tray Attendant Name Role Phone Nanette Sherwood MD Primary Care Provider [phone] Marshall Briceño MD Primary Care Provider [phone] Source Comments In the event this information is protected by the Federal Confidentiality of Alcohol and Drug AbusePatient Records regulations: The Federal rules restrict any use of the information to criminally investigate or prosecute any alcohol or drug abuse patient.[facility] Encounter Details Date Type Department Care Team (Latest Contact Info) Description 09/17/2021 H&P External-NonCCF Provider, External, PAHectorC Do not enter address information under generic External Provider. Social History Tobacco Use Types Packs/Day Years Used Date Smoking Tobacco: Former Cigarettes 1 20 0 09/06/1968 - 09/06/1988 Smokeless Tobacco: Never Alcohol Use Standard Drinks/Week Comments Yes 0 (1 standard drink = 0.6 oz pur e alcohol) rare PHQ-2 Answer Date Recorded PHQ-2 score 0 01/31/2020 Area Deprivation Index Answer Date Ranjit rded National Score (1-100), lower number is lower ri sk Not on file 07/22/2020 State Score (1-10), lower number is lower risk N ot on file 07/22/2020 Data from: https://www.neighborhoodatlas.[facility]/. Last address used for calculation Not on file 07/22/2020 Sex and Gender Information Value Date Recorded Sex Assigned at Not on file Legal Sex Male 7:34 AM EST Gender Identity Not on file Sexual Orientation Not on file documented as of this encounter Functional Status * Are you deaf or do you have serious difficulty hearing? Answer Date of Assessment Author No 02/19/2015 11:13 AM Reynolds * Are you blind or do you have serious difficulty seeing, even when wearing glasses? Answer Date of Assessment Author No 02/19/2015 11:13 AM BENNYT Love * Do you have serious difficulty walking or climbing stairs? Answer Date of Assessment Author No 02/19/2015 11:13 AM Reynolds * Do you have difficulty dressing or bathing? Answer Date of Assessment Author Yes 02/19/2015 11:13 AM BENNYT Love * Because of a physical, mental, [...] Description 05/22/2025 3:30 PM EDT Office Visit [facility] [address] [place] [address] 6 month lab 05/26/2025 3:00 PM EDT Visit (SP) Office Hematology/Oncology [address] [place] [address] Ginger Bean APRN.SUPERVISOR [employer] [address] [place] [address] 6 month follow up / BRM pt documented as of this encounter Visit Diagnoses Not on filedocumented in this encounter Care Teams Food Service Tray Attendant Relationship Specialty Start Date End Date Nanette Sherwood MD [address] [place] [address] PCP - General 08/01/05 07/22/23 Marshall Briceño MD [address] [place] [address] PCP - General Family Medicine 07/23/23 documented as of this encounter
--- OUTSIDE RECORDS SUMMARY | 2025-03-02 13:02 | XMS_ITS | Clinical Summary ---
Author Organization [facility] Address [address] [place] [address] Phone Care Team Providers Care Sheet Rock Installation Helper Name Role Phone Unavailable Primary Care Provider Unavailabl e Social History Tobacco Use Types Packs/Day Years Used Date Smoking Tobacco: Never Assessed Sex and Gender Information Value Date Recorded Sex Assigned at Not on file Legal Sex Male 3:56 PM EST Gender Identity Not on file Sexual Orientation Not on file Plan of Treatment Not on file
--- OUTSIDE RECORDS SUMMARY | 2025-03-02 13:02 | XMS_ITS ---
Author Organization [facility] Address [address] [place] [address] Care Team Providers Care Undertaker Assistant Name Role Phone Marshall Briceño MD Primary Care Provider [phone] Active Problems Problem Noted Date Diagnosed Date Hyperglycemia 10/21/2024 Chronic hypoxic respiratory failure 04/15/2024 Chronic kidney disease, stage 3a 04/15/2024 Macrocytic anemia 04/15/2024 Overview (04/15/2024): noted in 07/21/2023 Cardiology Consult Note page 4. added per OP CDI policy. Mass of leg 04/15/2024 JUANA (obstructive sleep apnea) 04/15/2024 Decreased ambulation status 09/09/202308/18 MGUS (monoclonal gammopathy of unknown significa nce) 09/09/2023 09/09/2023 Chronic diastolic heart failure 07/28/2023 07/28/2023 Overview (07/28/2023): Noted in 05/21/2023 UT page 1, added per outpatient CDI policy. Abnormal CT scan 07/02/2023 07/28/2023 Chronic sinusitis 07/02/2023 07/28/2023 Edema of both upper arms 07/02/2023 023 Pulmonary hypertension 07/02/2023 Overview (07/28/2023): Noted in 05/21/2023 UT page 1, added per outpatient CDI policy. Radiation fibrosis of lung 07/02/202307/28 Wheezing 07/02/2023 07/28/2023 Benign prostatic hyperplasia with urinary obstru ction 05/21/2023 05/21/2023 Compression fracture of vertebra 05/21/2023 05/21/2023 Former smoker 05/21/2023 05/21/2023 Hearing loss 05/21/2023 05/21/2023 High prostate specific antigen (PSA) 05/21/2023 05/21/2023 History of malignant neoplasm of prostate 202205/21/2023 History of B-cell lymphoma 05/21/202305/21 COPD with asthma 05/21/2023 05/21/2023 Kidney stone 05/21/2023 05/21/2023 Lymphoma 05/21/2023 05/21/2023 Malignant neoplasm of prostate 05/21/2023 1 Microscopic hematuria 05/21/2023 05/21/2023 Nasal congestion 05/21/2023 05/21/2023 Neuropathy, arm 05/21/2023 05/21/2023 Poor urinary stream 05/21/2023 05/21/2023 Ventral hernia 05/21/2023 05/21/2023 Prostate nodule 05/21/2023 05/21/2023 Bilateral leg edema 08/06/2022 05/21/[address] block 05/23/2022 History of cerebrovascular accident 05/23/2022 Cardiac pacemaker in situ 05/23/2022 Mixed hyperglyceridemia 05/23/2022 Benign essential tremor 07/31/2021 05/21/20 23 Cough 07/17/2021 05/21/2023 Dyspnea 07/17/2021 Recurrent pneumonia 07/17/2021 05/21/2023 Cerebrovascular accident (CVA) 08/03/2020 1 Left temporal lobe infarction 08/03/2020 Severe obesity (BMI 35.0-39.9) with comorbidity 08/03/2020 05/21/2023 Hypothyroidism 11/23/2018 05/21/2023 B12 deficiency 07/13/2017 05/21/2023 Diffuse large B cell lymphoma 02/21/2013 Current Treatment and Therapy Plans No current plan information found. Past Treatment and Therapy Plans No past plan information found. Lifetime Dose Tracking * Chemical Lifetime Dose Automatic Entry Manual Entr y Fluoro Time 2 minutes 0 minutes 2 minutes Air Kerma 15 mGy 0 mGy 15 mGy
--- OUTSIDE RECORDS SUMMARY | 2025-03-02 13:02 | XMS_ITS | Clinical Summary ---
Author Organization [facility] Address [address] [address] Care Team Providers Care Remote Encoding Center Manager Name Role Phone Marshall Briceño MD Primary Care Provider [phone] Allergies No known active allergies Medications aspirin 81 mg chewable tablet in the morning. Active budesonide (Pulmicort) 0.5 mg/2 mL nebulizer solution budesonide 0.5 mg/2 mL suspension for nebulization 9 Active cholecalciferol (Vitamin D-3) 25 MCG (1000 UT) tablet Take 1,000 Units by mouth in the morning. Active levothyroxine (Synthroid, Levoxyl) 100 mcg tablet Synthroid 100 mcg tablet Take 1 tablet every day by oral route. 9 Active tiotropium (Spiriva with HandiHaler) 18 mcg inhalation capsule Spiriva with HandiHaler 18 mcg and inhalation capsules 9 Active salmeterol (Serevent Diskus) 50 mcg/dose diskus inhaler Serevent Diskus 50 mcg/dose powder for inhalation 1 Active albuterol 90 mcg/actuation inhaler ProAir HFA 90 mcg/actuation aerosol inhaler Inhale 2 puffs every 4 hours by inhalation route. 6 Active gabapentin (Neurontin) 300 mg capsule Take 300 mg by mouth at bedtime. 3 Active montelukast (Singulair) 10 mg tablet Take 10 mg by mouth in the morning. 3 Active potassium chloride ER (Micro-K) 10 mEq ER capsuleIndicati ons:NSVT (nonsustained ventricular tachycardia) (CMS/HCC) Take 1 capsule (10 mEq) by mouth once daily as directed. Do not crush or chew. 90 capsule 3 12/12/202 3 Active metoprolol succinate XL (Toprol-XL) 25 mg 24 hr tabletIndicatio ns:NSVT (nonsustained ventricular tachycardia) (CMS/HCC) TAKE 1 TABLET BY MOUTH AT BEDTIME (DO NOT CRUSH OR CHEW) 90 tablet 3 4 Active furosemide (Lasix) 40 mg tabletIndicatio ns:Dyspnea on exertion Take 1 tablet (40 mg) by mouth in the morning. 90 tablet 3 4 06/30/20 Active Active Problems Problem Noted Date Diagnosed [...] 05/21/2023 Diffuse large B cell lymphoma 02/21/2013 Encounters Date Type Department Care Team Description 01/30/2025 10:35 AM EDT Ancillary Procedure [facility] [address] [place] [address] Adjustment and management of cardiac pacemaker 01/28/2025 Orders Only [facility] [address] [place] [address] Connor Roberts MD from Last 3 Months Family History Medical History Relation Name Comments Stroke Father Relation Name Status Comments Father Social History Tobacco Use Types Packs/Day Years Used Date Smoking Tobacco: Former Cigarettes Tobacco Cessation:Counseling Given: Not Answered Alcohol Use Standard Drinks/Week Comments Never 0 [...] Sign Reading Time Taken Comments Blood Pressure 136/74 10/21/2024 11:49 AM EST Pulse 79 10/21/2024 11:49 AM EST Temperature - - Respiratory Rate 17 09/17/2023 11:45 AM EST Oxygen Saturation 94% 10/21/2024 11:49 AM EST on 4L O2 Inhaled Oxygen Concentration - - Weight 97.1 kg (214 lb) 10/21/2024 11:49 AM EST Height 162.6 cm (5' 4 ) 10/21/2024 11:49 AM EST Body Mass Index 36.73 10/21/2024 11:49 AM EST Plan of Treatment Health Maintenance Due Date Last Done Comments Medicare Annual Wellness (AWV) 1945 Depression Screening 1959 Fall Risk Screening 2012 COVID-19 Vaccine ( season) 2024 05/12/2024, 05/12/2024, 07/02/2023, Additional history exists Influenza Vaccine (#1) 2025 , 05/11/2023, 05/24/2021, Additional history exists Adult Tetanus 05/09/2030 05/09/2020 Pneumococcal Vaccine: 50+ Years Completed 05/25/2018, 04/26/2018, 08/04/2017 Zoster Vaccines Completed 07/24/2020, 01/2020, 05/09/2020 HIB Vaccines Aged Out No longer eligi ble based on patient's age to complete this topic HPV Vaccines Aged Out No longer eligi ble based on patient's age to complete this topic IPV Vaccines Aged Out No longer eligi ble based on patient's age to complete this topic Meningococcal B Vaccine Aged Out No l onger eligible based on patient's age to complete this topic Meningococcal Vaccine Aged Out No tay stefano eligible based on patient's age to complete this topic Rotavirus Vaccines Aged Out No longer eligible based on patient's age to complete this topic Procedures Procedure Name Priority Date/Time Associated Diagnosis Comments CARDIAC DEVICE CHECK CHECK - REMOTE Routine 02/27/2025 1:40 PM EDT Adjustment and management of cardiac pacemaker CARDIAC DEVICE CHECK - REMOTE - PACEMAKER Routine 01/28/2025 12:00 AM EDT CARDIAC DEVICE CHECK CHECK - REMOTE Routine 12/21/2024 12:20 PM EDT Adjustment and management of cardiac pacemaker from Last 3 Months Results * CARDIAC DEVICE CHECK - REMOTE - PACEMAKER (02/27/2025 1:40 PM EDT) Only the most recent of2 resultswithin the time period is included. Connor Roberts MD CV IMPLANTABLE CARDIAC DEVICE MS OCEDURES Final Result CPACS * Cardiac device check - Remote pacemaker (01/28/2025 12:00 AM EDT) Anatomical Region Laterality Modality Other 01/28/2025 Connor Rboerts MD CV IMPLANTABLE CARDIAC DEVICE [place] OCEDURES Final Result from Last [address] [place] [id number] [employer] MEDICARE Care Teams Remote Encoding Center Manager Relationship Specialty Start Date End Date Marshall Briceño MD [address] [place] [phone] PCP - General Family Medicine 05/21/23
--- NOTE | 2025-03-02 13:03 | ECG_ITS ---
[facility] Test Date: 2025-03-02 Pat Name: CHIKI FOLEY Department: Room: - Gender: Male Rouge Miller: : 1945 Requested By: [id number] Order Number: [id number] Reading MD: BENJAMIN LEROY Measurements Intervals [place] Rate: 86 P: 64 MD: 164 QRS: -49 QRSD: 144 T: 66 QT: 432 QTc: 476 Interpretive Statements 1100 Sinus rhythm 1973 with frequent ectopic premature complexes ANTEROSEPTAL INFARCT, AGE INDETERMINATE 2330 Nonspecific intraventricular conduction block 7200 Abnormal left axis deviation 9150 abnormal ECG Compared to ECG 10/11/2024 12:24:12 Left-axis deviation now present Sinus arrhythmia no longer present Sinus tachycardia no longer present Electronically Signed On 03-03-2025 10:01:34 EDT by BENJAMIN LEROY
--- NOTE | 2025-03-02 13:04 | XR_ITS ---
[place] [id number] Patient Name: CHIKI FOLEY MRN: [id number] date: 1945 Sex: M Assigned Patient Location: ED.MAIN Current Patient Location: ED.MAIN Accession/Order Number: [id number] Exam Date: 03/02/2025 13:49 Report Date: 03/02/2025 13:52 At the request of: NIURKA PULIDO NP Procedure: XR chest 1V Plain film chest Single view HISTORY: Increasing shortness of breath COMPARISON: 10/11/2024 FINDINGS: SUPPORT DEVICES: None POSTSURGICAL CHANGES: Cardiac device remains intact HEART: Similar cardiomegaly PULMONARY ALEX: Similar hilar congestion MEDIASTINUM: Unremarkable LUNGS AND PLEURA: No acute lung process, pleural effusion or pneumothorax identified. Mild interstitial changes BONY STRUCTURES: Intact ADDITIONAL FINDINGS None XR/XR chest 1V IMPRESSION: Mild CHF findings Impression dictated by: Farshad Sands M.D. 03/02/2025 1:52 PM Dictation Location: [place] [address] Electronically authenticated by: [id number] Y Date: 03/02/2025 13:52
--- NOTE | 2025-03-02 13:06 | ED.GENADUL1 ---
HPI HPI - General Adult General Chief complaint: Back Pain/Injury Stated complaint: SOB, FEVER Time Seen by Provider: 03/02/25 12:56 History of Present Illness HPI narrative: The patient is a 79-year-old male who presents to the emergency room today for evaluation concerns for shortness of breath. Patient with significant medical history of adult onset cystic fibrosis, COPD, chronic hypoxic respiratory failure on 4 LNC, and CHF who endorses over the past 2 days he has had worsening shortness of breath. He is concerned he may have fevers as he did have an episode of feeling diaphoretic overnight. He denies any chest pain. No abdominal pain or nausea/vomiting. He took a DuoNeb an hour prior to arrival and states this did help some. He endorses 2 days ago he took an extra dose of Lasix due to some increased swelling in his left arm and leg. He feels that extra dose of Lasix did help with this. PMH per chart review: COPD/ Asthma, radiation fibrosis, CF (follows with [facility]), chronic hypoxic respiratory failure on NC, CHF, nonhodgkins lymphoma (follows [facility]), s/p PPM, TIA Related Data Home Medications ?Medication ?Instructions ?Recorded ?Confirmed albuterol sulfate 2.5 mg/3 mL 2.5 mg inhalation Q4H PRN 10/11/24 03/02/25 (0.083 %) solution for nebulization shortness of breath or wheezing aspirin 81 mg capsule 81 mg PO DAILY 10/11/24 03/02/25 budesonide 0.5 mg/2 mL suspension 0.5 mg inhalation Q12H 10/11/24 03/02/25 for nebulization calcium 1,200 mg PO DAILY 10/11/24 03/02/25 cholecalciferol (vitamin D3) 25 25 mcg PO DAILY 10/11/24 03/02/25 mcg (1,000 unit) capsule (Vitamin D3) cyanocobalamin (vitamin B-12) 5,000 mcg sublingual DAILY 10/11/24 03/02/25 5,000 mcg sublingual tablet (Vitamin B-12) fluticasone 500 mcg-salmeterol 50 1 inh inhalation BID 10/11/24 03/02/25 mcg/dose blistr powdr for inhalation (Advair Diskus) furosemide 20 mg tablet 20 mg PO DAILY 10/11/24 03/02/25 levothyroxine 100 mcg tablet 112 mcg PO DAILY 10/11/24 03/02/25 potassium chloride 10 mEq 10 meq PO DAILY 10/11/24 03/02/25 tablet,extended release (Klor-Con) salmeterol 50 mcg/dose blister 1 inh inhalation BID 10/11/24 03/02/25 powder for inhalation (Serevent Diskus) sodium chloride 3.5 % for 4 ml inhalation BID 10/11/24 03/02/25 nebulization (Hyper-Flaco) tiotropium bromide 2.5 2 inh inhalation DAILY 10/11/24 03/02/25 mcg/actuation mist for inhalation (Spiriva Respimat) ensifentrine 3 mg/2.5 mL 3 mg inhalation BID 03/02/25 03/02/25 suspension for nebulization (Ohtuvayre) Held on 03/02/25. Instructions: Doctor's Order montelukast 10 mg tablet 10 mg PO DAILY 03/02/25 03/02/25 tezepelumab-ekko 210 mg/1.91 mL 210 mg subcut .qmonthly 03/02/25 03/02/25 (110 mg/mL) subcutaneous pen injector (Tezspire) tiotropium bromide 18 mcg capsule 1 cap inhalation DAILY 03/02/25 03/02/25 with inhalation device Previous Rx's ?Medication ?Instructions ?Recorded metoprolol succinate 25 mg 25 mg PO QD #30 tabs 10/14/24 tablet,extended release 24 hr Allergies Allergy/AdvReac Type Severity Reaction Status Date / Time No Known Drug Allergies Allergy Verified 03/02/25 13:07 Opioid HPI Opioid Management Most Recent Opioid Data: Last Pain Scale 7 Today, 13:07 Last ORT Total Score 0 10/11/24, 14:11 Last ORT Risk Category Low Risk 10/11/24, 14:11 Review of Systems ROS Status of ROS 10 or more systems reviewed and unremarkable except as noted in history and below [facility] Medical History (Updated 03/02/25 @ 15:04 by Cici Mcgill NP) Hypothyroidism (acquired) ?E03.9 - Hypothyroidism, unspecified (ICD-10) Sleep apnea treated with continuous positive airway pressure (CPAP) ?G47.30 - Sleep apnea, unspecified (ICD-10) Lymphoma ?C85.90 - Non-Hodgkin lymphoma, unspecified, unspecified site (ICD-10) Pacemaker ?Z95.0 - Presence of cardiac pacemaker (ICD-10) CVA (cerebral vascular accident) ?I63.9 - Cerebral infarction, unspecified (ICD-10) Social History (Updated 10/11/24 @ 20:29 by Lidya Mars) Within the past year, how often did you have a drink containing alcohol: never Score interpretation: A score less than 4 is consistent with normal alcohol consumption. Smoking status: Former smoker Non-prescribed substance use: denies use Highest level of school completed/degree received: 12th grade, no diploma Little interest or pleasure in doing things: not at all Feeling down, depressed, or hopeless: not at all Exam Narrative Exam Narrative: Constituational: Awake/ alert, +short of breath with single sentences, + obese HENMT: normocephalic, external ears normal, moist oral mucous membranes and oropharynx normal Eyes: EOMI and conjunctivae normal Neck: ROM intact Chest: inspection of chest normal Respiratory: clear to auscultation bilaterally with good/fair aeration throughout, + tachypnea RR 22, mild pursed lip breathing Cardio: regular rate and regular rhythm GI: soft to palpation and non-tender Back: nontender MSK: +2edema b/l LE, ROM intact, +NVI Skin: no rashes or petechiae Neuro: no focal deficits Psych: mental status grossly normal Constitutional Vital Signs, click to edit/add: Last Vital Signs Temp 98.6 F 03/02/25 13:07 Pulse 81 03/02/25 14:40 Resp 27 H 03/02/25 14:40 BP 105/84 03/02/25 14:00 Pulse Ox 94 L 03/02/25 14:40 O2 Del Method Nasal Cannula 03/02/25 13:43 O2 Flow Rate 4 03/02/25 13:43 Course Vital Signs Vital signs: Vital Signs Temperature 98.6 F 03/02/25 13:07 Pulse Rate 89 03/02/25 13:07 Respiratory Rate 22 H 03/02/25 13:07 Blood Pressure 130/90 03/02/25 13:07 Pulse Oximetry 95 03/02/25 13:07 Oxygen Delivery Method Nasal Cannula 03/02/25 13:07 Oxygen Delivery Flow Rate 4 03/02/25 13:07 Temperature 98.6 F 03/02/25 13:07 Pulse Rate 81 03/02/25 14:40 Respiratory Rate 27 H 03/02/25 14:40 Blood Pressure 105/84 03/02/25 14:00 Pulse Oximetry 94 L 03/02/25 14:40 Oxygen Delivery Method Nasal Cannula 03/02/25 13:43 Oxygen Delivery Flow Rate 4 03/02/25 13:43 Medical Decision Making [facility] Narrative Medical decision making narrative: The patient is a chronically ill-appearing 79-year-old male who presented to the emergency department today for evaluation of concerns for worsening shortness of breath with symptoms of orthopnea and reported peripheral edema. Initial examination patient noted to be mildly tachypneic however is on his baseline oxygen use of 4 L nasal cannula. He is not in any significant respiratory distress however he is short of breath conversationally. Volume status is somewhat difficult to appreciate due to body habitus he does appear somewhat volume expanded as evidenced by peripheral edema. Historically patient has endorsed some acute on chronic pain to his lower back and has been taking NSAIDs over the past few days including Aleve and ibuprofen. Historically he endorsed taking an extra dose of Lasix 2 days ago due to peripheral edema however stopped due to concerns for hypokalemia. He otherwise does not appear to be exhibiting any ischemic symptoms. There was some concern for possible infectious etiology as there were concerns for tactile temperatures by the family and patient did have an episode of nocturnal diaphoresis. Patient does have a history of adult onset cystic fibrosis and thought the symptoms may be related to that. Lactic was 1.6. Viral testing is negative for influenza and COVID. Chest x-ray without evidence of pneumonia however does show some mild pulmonary vascular congestion. BNP is slightly up trended at 1100 from prior. Negative x 1 and EKG is without acute changes. Patient did receive supportive measures of a single dose of IVP Lasix 40 mg. Otherwise showed no significant leukocytosis, anemia, thrombocytopenia. Electrolytes including hepatic function stable. Creatinine is noted elevated at 1.6 however this is overall stable per prior trends. UA is neg for UTI, however he was noted to have some occult blood present. Patient and his family did mention he has some acute on chronic back pain. Low clinical suspicion for kidney stones as this is over the para vertebral region of the lower lumbar spine. He has no CVA discomfort and no acute abdominal findings or colicky pain in addition to complaints of nausea or vomiting. He was offered medication for his back pain however declined this. Patient endorses he has degenerative changes in mostly his upper and thoracic back and family is requesting imaging of his low back due to reported acute on chronic pain to the lumbar region. He has no concerning neurovascular or motor findings on exam. CT imaging ordered of the back however patient is unsure if he would be able to lay flat due to orthopnea in addition pain. Clinical impression CHF exacerbation. Did discuss patient's condition, labs, image results, treatments provided by the emergency department with the hospitalist Dr. Riya Goelp-> the patient is excepted for admission. Discussed the above findings and recommendations with the patient and the family who was present at the bedside. All agreeable to plan to be mated for further care of the above. Medical Records Medical records reviewed: Yes I reviewed the patient's medical records Lab Data Lab results reviewed: Yes I reviewed the patient's lab results Labs: Lab Results 03/02/25 03/02/25 03/02/25 Range/Units 13:25 14:04 14:14 WBC 12.9 H (4.0-11.0) 10^3/uL RBC 3.09 L (4.70-6.10) 10^6/uL Hgb 10.6 L (14.0-18.0) g/dL Hct 32.8 L (42.0-54.0) % MCV 106.1 H (80.0-94.0) fL MCH 34.3 H (25.9-34.0) pg MCHC 32.3 (29.9-35.2) g/dL RDW 15.8 H (11.0-15.0) % Plt Count 125 L (150-450) 10^3/uL MPV 11.8 (9.5-13.5) fL Seg Neuts % (Manual) 64.0 (43.0-75.0) Band Neutrophils % 4.0 (0-5) % Lymphocytes % (Manual) 8.0 L (20.5-60.0) % Monocytes % (Manual) 24.0 H (1.7-12.0) % Eosinophils % (Manual) 0.0 L (0.9-7.0) % Basophils % (Manual) 0.0 L (0.2-2.0) % Neutrophils # (Manual) 8.25 H (1.4-6.5) 10^3/uL Band Neutrophils # 0.5 H (0.0-0.3) 10^3/uL Lymphocytes # (Manual) 1.03 L (1.20-3.80) 10^3/uL Monocytes # (Manual) 3.09 H (0.30-0.80) 10^3/uL Eosinophils # (Manual) 0.00 (0.00-0.70) 10^3/uL Basophils # (Manual) 0.00 (0.00-0.10) 10^3/uL Anisocytosis 1+ Macrocytosis 1+ Sodium 142 (136-145) mmol/L Potassium 3.8 (3.5-5.1) mmol/L Chloride 108 H (98-107) mmol/L Carbon Dioxide 26.1 (21.0-32.0) mmol/L Anion Gap 11.7 BUN 23.0 H (7.0-18.0) mg/dL Creatinine 1.66 H (0.70-1.30) mg/dL Est GFR ( Amer) 49 L (>=60 mL/min/1.73m^2) Est GFR (Non-Af Amer) 40 L (>=60 mL/min/1.73m^2) BUN/Creatinine Ratio 13.9 Glucose 115 H (74-106) mg/dL Lactate 1.6 (0.4-2.0) mmol/L Calcium 8.8 (8.5-10.1) mg/dL Total Bilirubin 0.6 (0.2-1.0) mg/dL AST 22 (15-37) U/L ALT 23 (16-63) U/L Alkaline Phosphatase 132 H (46-116) U/L Troponin I High Sens 10.2 (4.0-76.1) pg/mL NT-Pro-B Natriuret Pep 1124.0 (<=1800.0) pg/mL Total Protein 6.8 (6.4-8.2) g/dL Albumin 2.8 L (3.4-5.0) g/dL Globulin 4.0 g/dL Albumin/Globulin Ratio 0.7 Urine Color Lt. yellow (YELLOW) Urine Clarity Clear (CLEAR) Urine pH 6.0 (5.0-9.0) Ur Specific [place] 1.010 (1.005-1.025) Urine Protein Negative (NEG/TRACE) mg/dL Urine Glucose (UA) Negative (NEGATIVE) mg/dL Urine Ketones Negative (NEGATIVE) mg/dL Urine Occult Blood Small A (NEGATIVE) Urine Nitrite Negative (NEGATIVE) Urine Bilirubin Negative (NEGATIVE) Urine Urobilinogen 0.2 (0.2-1.0) EU/dL Ur Leukocyte Esterase Negative (NEGATIVE) Urine RBC 2-5 A (0-2) #/HPF Urine WBC None seen (NONE SEEN) #/HPF Ur Squamous Epith Cells Rare (NONE/RARE) #/LPF Urine Crystals None seen (None Seen) #/HPF Urine Bacteria Trace A (NONE SEEN) #/HPF Urine Casts None seen (NONE SEEN) #/LPF Urine Mucus None seen (NONE SEEN) Ur Culture Indicated? No Influenza Type A Ag Negative Influenza Type B Ag Negative SARS-CoV-2 Ag (CV2AG) Negative (NEGATIVE) Imaging Data Chest x-ray: Attestation: I have reviewed the pertinent imaging results. Radiologist's impression: ITS Impressions Chest X-Ray 03/02/25 13:04 IMPRESSION: Mild CHF findings Impression dictated by: Farshad Sands M.D. 03/02/2025 1:52 PM Dictation Location: [place] [address] Electronically authenticated by: [id number] Y Date: 03/02/2025 13:52 ECG Data Attestation: I personally reviewed and interpreted this ECG as follows: (SR with HR 86, occasional paced beats ) Discharge Plan Discharge Patient Disposition: Still a Patient
[2025-03-02 14:01] LABS: Hematocrit 32.8 % (42.0-54.0); Hemoglobin 10.6 g/dL (14.0-18.0); Mean Corpuscular HGB Conc 32.3 g/dL (29.9-35.2); Mean Corpuscular Hemoglobin 34.3 pg (25.9-34.0); Mean Corpuscular Volume 106.1 fL (80.0-94.0); Platelet Count 125 10^3/uL (150-450); Red Blood Count 3.09 10^6/uL (4.70-6.10); White Blood Count 12.9 10^3/uL (4.0-11.0)
[2025-03-02 14:17] LABS: Alanine Aminotransferase 23 U/L (16-63); Albumin Globulin Ratio 0.7; Albumin Level 2.8 g/dL (3.4-5.0); Alkaline Phosphatase 132 U/L (46-116); Anion Gap 11.7; Aspartate Amino Transferase 22 U/L (15-37); Blood Urea Nitrogen 23.0 mg/dL (7.0-18.0); Calcium 8.8 mg/dL (8.5-10.1); Carbon Dioxide 26.1 mmol/L (21.0-32.0); Chloride 108 mmol/L (98-107); Estimated GFR (African America 49 (>=60 mL/min/1.73m^2); Estimated GFR (Non-African Ame 40 (>=60 mL/min/1.73m^2); Globulin 4.0 g/dL; Glucose 115 mg/dL (74-106); Potassium 3.8 mmol/L (3.5-5.1); Sodium 142 mmol/L (136-145); Total Protein 6.8 g/dL (6.4-8.2)
[2025-03-02 14:20] LABS: Lactate/Lactic Acid 1.6 mmol/L (0.4-2.0)
[2025-03-02 14:21] LABS: Band Neutrophils Absolute 0.5 10^3/uL (0.0-0.3); Lymphocytes Absolute Manual 1.03 10^3/uL (1.20-3.80); Lymphocytes Percent Manual 8.0 % (20.5-60.0); Monocytes Absolute Manual 3.09 10^3/uL (0.30-0.80); Monocytes Percent Manual 24.0 % (1.7-12.0); Segmented Neut Absolute Manual 8.25 10^3/uL (1.4-6.5); Segmented Neutrophils % Manual 64.0 (43.0-75.0)
[2025-03-02 14:22] LABS: Basophils Abs Manual 0.00 10^3/uL (0.00-0.10); Basophils Percent Manual 0.0 % (0.2-2.0); Eosinophils Absolute Manual 0.00 10^3/uL (0.00-0.70); Eosinophils Percent Manual 0.0 % (0.9-7.0)
[2025-03-02 14:23] LABS: Anisocytosis 1+; Macrocytosis 1+
[2025-03-02 14:28] LABS: SARS-CoV-2 Ag NEGATIVE (NEGATIVE)
[2025-03-02 14:30] LABS: Glucose Urine UA NEGATIVE (NEGATIVE)
[2025-03-02 14:34] LABS: NT Pro B Type Natriuretic Pept 1124.0 pg/mL (<=1800.0)
[2025-03-02 14:40] LABS: Cast Seen? NONE SEEN #/LPF (NONE SEEN); Crystals Seen? None Seen #/HPF (None Seen); Urine Culture Indicated NO
--- NOTE | 2025-03-02 14:57 | CT_ITS ---
The [address] [address] Patient Name: CHIKI FOLEY MRN: [id number] date: 1945 Sex: M Assigned Patient Location: ED.MAIN Current Patient Location: MS Accession/Order Number: [id number] Exam Date: 03/02/2025 16:25 Report Date: 03/02/2025 16:30 At the request of: NIURKA PULIDO NP Procedure: CT lumbar spine wo con CT lumbar spine wo con 03/02/2025 3:30 PM History:Low back pain, shortness of breath TECHNIQUE: Multi detector CT axial slices of the lumbar spine were obtained without IV contrast. Volumetric acquisition sagittal, coronal, and 3-D reconstructions were performed and reviewed on a separate workstation. CT was performed with one or more of the following dose reduction techniques: Automated exposure control, adjustment of the mA and/or kV according to patient size, or use of iterative reconstruction technique. COMPARISON: 04/02/2023 FINDINGS: There is a compression fracture involving the L3 vertebral body which is new when compared to the 2022 exam. There is 50% loss of vertebral body height. No significant retropulsion into the spinal canal. There is a compression deformity of the inferior endplate of the L1 vertebral body which is also new when compared to the 2022 exam. There is 30% loss of vertebral body height without retropulsion into the spinal canal. There is mild vertebral disc height loss at L4-L5. Mild facet degenerative changes are present throughout. Degenerative changes are noted in the sacroiliac joints. The alignment of the lumbar spine is normal. The paraspinous soft tissues are within normal limits. Airspace opacities are noted in the right lung base. These are only partly visualized. Atherosclerotic changes are noted in the abdominal aorta and its branches. CT/CT lumbar spine wo con IMPRESSION: There is a compression fracture involving the L3 vertebral body which is new when compared to the 2022 exam. There is 50% loss of vertebral body height. No significant retropulsion into the spinal canal. There is a compression deformity of the inferior endplate of the L1 vertebral body which is also new when compared to the 2022 exam. There is 30% loss of vertebral body height without retropulsion into the spinal canal. Additional degenerative changes are noted as above. Airspace opacities are noted in the right lung base. These are only partly visualized. Impression dictated by: Mani Ag M.D. 03/02/2025 4:30 PM Dictation Location: [place] [address] Electronically authenticated by: [id number] Y Date: 03/02/2025 16:30
[2025-03-02] MEDS: FUROSEMIDE 40 MG/4 ML VIAL IVP (15:40)
--- NOTE | 2025-03-02 16:24 | CT_ITS ---
The [address] [address] Patient Name: CHIKI FOLEY MRN: [id number] date: 1945 Sex: M Assigned Patient Location: MS Current Patient Location: Accession/Order Number: [id number] Exam Date: 03/02/2025 18:19 Report Date: 03/02/2025 18:28 At the request of: RAJANI AGUIRRE MD Procedure: CT chest wo con CT chest wo con 03/02/2025 5:09 PM SIGN AND SYMPTOMS: Increasing shortness of breath, congestive heart failure TECHNIQUE: Multidetector CT axial slices of the chest were obtained without IV contrast. Multiplanar reformats were performed and viewed on a separate workstation and reviewed to further define anatomy and possible pathology. CT was performed with one or more of the following dose reduction techniques: Automated exposure control, adjustment of the mA and/or kV according to patient size, or use of iterative reconstruction technique. COMPARISON: 1020 11/24/2022.. FINDINGS: Lower neck: Thyroid gland within normal limits, no supraclavicle adenopathy. Vessels: Atherosclerotic changes are noted in the thoracic aorta, origins of the great vessels, and within the coronary arteries. Mediastinum and [place]: Within normal limits. Heart: Normal size. No pericardial effusion. Airways: Within normal limits Lungs: There is scarring in the right upper lobe with dependent airspace opacity in the right lower lobe. There is chronic-appearing interstitial prominence. There is an 8 mm calcified granuloma anteriorly in the right upper lobe. Pleura: There is a small right-sided pleural effusion. Chest Wall: Within normal limits. Upper Abdomen: Calcified granulomas are noted in the spleen. Bones: Degenerative changes are noted in the thoracic spine. There is a compression deformity of the T5 vertebral body with complete loss of vertebral body height. CT/CT chest wo con IMPRESSION: Scarring is noted in the lung apex with focal consolidation in the right lower lobe possibly representing atelectasis or pneumonia. There is a small right-sided pleural effusion. Impression dictated by: Mani Ag M.D. 03/02/2025 6:28 PM Dictation Location: [place] [address] Electronically authenticated by: [id number] Y Date: 03/02/2025 18:28
[2025-03-02] MEDS: ACETAMINOPHEN 325 MG TABLET 650 MG PO ×2 (17:36→21:04)
[2025-03-02] MEDS: DEXAMETHASONE SOD PHOS 10 MG/ML VIAL IV (17:36)
[2025-03-02] MEDS: IPRATROPIUM/ALBUTEROL SULFATE 3 ML AMPUL.NEB IH (19:07)
[2025-03-02] MEDS: BUDESONIDE 0.5 MG/2 ML AMPULE NEB IH (19:07)
[2025-03-02] MEDS: ENOXAPARIN SODIUM 40 MG/0.4 ML SYRINGE SUBQ (21:03)
[2025-03-02] MEDS: DOXYCYCLINE HYCLATE 100 MG in 0.9 % SODIUM CHLORIDE 100 ML IV (21:04)
[2025-03-03] VITALS (22 sets, daily range): BP systolic 108–170; BP diastolic 43–88; PULSE 83–105; TEMP 36.4–36.7; O2SAT 91–94
[2025-03-03] MEDS: LEVOTHYROXINE SODIUM 100 MCG TABLET 112 MCG PO (05:55)
[2025-03-03 06:07] LABS: Hematocrit 32.1 % (42.0-54.0); Hemoglobin 10.2 g/dL (14.0-18.0); Mean Corpuscular HGB Conc 31.8 g/dL (29.9-35.2); Mean Corpuscular Hemoglobin 33.7 pg (25.9-34.0); Mean Corpuscular Volume 105.9 fL (80.0-94.0); Platelet Count 123 10^3/uL (150-450); Red Blood Count 3.03 10^6/uL (4.70-6.10); White Blood Count 7.6 10^3/uL (4.0-11.0)
[2025-03-03 06:16] LABS: Alanine Aminotransferase 20 U/L (16-63); Albumin Globulin Ratio 0.7; Albumin Level 2.7 g/dL (3.4-5.0); Alkaline Phosphatase 121 U/L (46-116); Anion Gap 17.4; Aspartate Amino Transferase 14 U/L (15-37); Blood Urea Nitrogen 30.0 mg/dL (7.0-18.0); Calcium 8.7 mg/dL (8.5-10.1); Carbon Dioxide 23.8 mmol/L (21.0-32.0); Chloride 108 mmol/L (98-107); Cholesterol 128 mg/dL (<=200); Estimated GFR (African America 48 (>=60 mL/min/1.73m^2); Estimated GFR (Non-African Ame 40 (>=60 mL/min/1.73m^2); Globulin 3.8 g/dL; Glucose 157 mg/dL (74-106); HDL Cholesterol 38 mg/dL (40-60); Magnesium 2.3 mg/dL (1.8-2.4); Potassium 4.2 mmol/L (3.5-5.1); Sodium 145 mmol/L (136-145); Total Protein 6.5 g/dL (6.4-8.2); Triglycerides 84 mg/dL (<=150); VLDL CHOLESTEROL 16.8 mg/dL
[2025-03-03 06:39] LABS: Band Neutrophils Absolute 0.6 10^3/uL (0.0-0.3); Basophils Abs Manual 0.00 10^3/uL (0.00-0.10); Basophils Percent Manual 0.0 % (0.2-2.0); Eosinophils Absolute Manual 0.00 10^3/uL (0.00-0.70); Eosinophils Percent Manual 0.0 % (0.9-7.0); Lymphocytes Absolute Manual 0.45 10^3/uL (1.20-3.80); Lymphocytes Percent Manual 6.0 % (20.5-60.0); Metamyelocytes Absolute Manual 0.15; Monocytes Absolute Manual 0.45 10^3/uL (0.30-0.80); Monocytes Percent Manual 6.0 % (1.7-12.0); Segmented Neut Absolute Manual 5.92 10^3/uL (1.4-6.5); Segmented Neutrophils % Manual 78.0 (43.0-75.0)
--- OUTSIDE RECORDS SUMMARY | 2025-03-03 06:39 | XMS_ITS ---
Author Organization [facility] Address [address] [place] [address] Care Team Providers Care Therapeutic Dietitian Name Role Phone Marshall Briceño MD Primary Care Provider [phone] Active Problems Problem Noted Date Diagnosed Date [...]
--- OUTSIDE RECORDS SUMMARY | 2025-03-03 06:39 | XMS_ITS | Clinical Summary ---
Author Organization [facility] Address [address] [place] [address] Care Team Providers Care Clothing Supervisor Name Role Phone Marshall Briceño MD Primary Care Provider [phone] Allergies Active Allergy Reactions Criticality Noted Date [...] original vaccine, a ge 12+ yr, monovalent ([employer] - PURPLE TOP) 11/13/2020,10/22/2020 influenza (HD-IIV3) vaccine, [...] is lower risk 8 06/06/2024 Data from: https://www.neighborhoodatlas.medicine.[facility].edu/. Last address used for calculation [address] [place] [address] [address] 06/06/2024 Sex and Gender Information [...] Description 05/22/2025 3:30 PM EDT Office Visit [facility] [address] [place] [address] [place] [address] 6 month lab 05/26/2025 3:00 PM EDT Visit (SP) Office Hematology/Oncology [address] [place] [address] [place] [address] Ginger Bean, [employer] [address] [place] [address] 6 month follow up / BRM pt [...] - 8.0 g/dL 11/15/2024 2:43 PM EDT [facility] Albumin 3.8(L) 3.9 - 4.9 g/dL 11/15/2024 2:43 PM EDT [facility] Calcium, Total 9.3 8.5 - 10.2 mg/dL 11/15/2024 2:43 PM EDT [facility] Bilirubin, Total 0.4 0.2 - 1.3 mg/dL 11/15/2024 2:43 PM EDT [facility] Alkaline Phosphatase 83 38 - 113 U/L 11/15/2024 2:43 PM EDT [facility] AST 14 14 - 40 U/L 11/15/2024 2:43 PM EDT [facility] ALT 9(L) 10 - 54 U/L 11/15/2024 2:43 PM EDT [facility] Glucose 110(H) 74 - 99 mg/dL 11/15/2024 2:43 PM EDT [facility] Comment: The [place] Diabetes [employer] (ADA) provides guidance for cutoff [...] Standards of Medical Care in Diabetes 2016, [place] [employer]. Diabetes Care. 2016.39(Suppl 1). BUN 21 9 - 24 mg/dL 11/15/2024 2:43 PM EDT [facility] Creatinine 1.27(H) 0.73 - 1.22 mg/dL 11/15/2024 2:43 PM EDT [facility] Sodium 140 136 - 144 mmol/L 11/15/2024 2:43 PM EDT [facility] Potassium 4.0 3.7 - 5.1 mmol/L 11/15/2024 2:43 PM EDT [facility] Chloride 104 98 - 107 mmol/L 11/15/2024 2:43 PM EDT [facility] CO2 24 22 - 30 mmol/L 11/15/2024 2:43 PM EDT [facility] Anion Gap 12 8 - 15 mmol/L 11/15/2024 2:43 PM EDT [facility] Estimated Glomerular Filtration Rate 58(L) >=60 mL/min/1. 73m 11/15/2024 2:43 PM EDT [facility] Comment:Estimated Glomerular Filtration Rate (eGFR) is [...] 11/15/2024 1:58 PM EDT us Arabella Gayle [employer] LABORATORY Final Resul t [facility] [address] [place] [address] from Last 3 Months or Most Recently Relevant to Health Maintenance Insurance [facility] MEDICARE ADVANTAGE PPO Member Subscriber Plan / Payer (Ef fective 2023-Present) Name:Dorian Juarez Relation to Subscriber:Self Name:Dorian Juarez Payer ID:[id number] (NAIC) Type:PPO Address: [place] [id number] Care Teams Clothing Supervisor Relationship Specialty Start Date End Date Marshall Briceño MD [address] [place] [address] PCP - General Family Medicine 07/23/23
--- OUTSIDE RECORDS SUMMARY | 2025-03-03 06:39 | XMS_ITS | Encounter Summary ---
Author Organization [facility] Address [address] [place] [address] Care Team Providers Care Access Rn Name Role Phone Marshall Briceño MD Primary Care Provider [phone] Encounter Details Date Type Department Care Team (Late st Contact Info) Description 01/28/2025 Orders Only [facility] [address] [place] [address] Connor Roberts MD [address] [place] [address] Social History Tobacco Use Types [...] Connor Roberts MD CV IMPLANTABLE CARDIAC DEVICE IA OCEDURES Final Result documented in this encounter Visit Diagnoses Not on filedocumented in this encounter Care Teams Access Rn Relationship Specialty Start Date End Date Marshall Briceño MD [address] [place] [address] PCP - General Family Medicine 05/21/23 documented as of this encounter
--- OUTSIDE RECORDS SUMMARY | 2025-03-03 06:39 | XMS_ITS | Encounter Summary ---
Author Organization [facility] Address [address] [place] [address] Care Team Providers Care Printed Circuit Boards Pinner Name Role Phone Nanette Sherwood MD Primary Care Provider [phone] Marshall Briceño MD Primary Care Provider [phone] Source Comments In the event this information is protected by the Federal Confidentiality of Alcohol and Drug AbusePatient Records regulations: The Federal rules restrict any use of the information to criminally investigate or prosecute any alcohol or drug abuse patient.[facility] Encounter Details Date Type Department Care Team [...] N ot on file 07/22/2020 Data from: [email or web address] Last address used for calculation Not on [...] 3:30 PM EDT Office Visit [facility] [address] [address] 6 month lab 05/26/2025 3:00 PM EDT Visit (SP) Office Hematology/Oncology [address] [place] [address] Ginger Bean APRN.RAND BUTTING MACHINE OPERATOR [address] [place] [address] 6 month follow up / BRM pt documented as of this encounter Visit Diagnoses Not on filedocumented in this encounter Care Teams Printed Circuit Boards Pinner Relationship Specialty Start Date End Date Nanette Sherwood MD [address] [place] [address] PCP - General 08/01/05 07/22/23 Marshall Briceño MD [address] [place] [address] PCP - General Family Medicine 07/23/23 documented as of this encounter
--- OUTSIDE RECORDS SUMMARY | 2025-03-03 06:39 | XMS_ITS | Clinical Summary ---
Author Organization [facility] Address [address] [address] Care Team Providers Care Warp Tying Machine Knotter Name Role Phone Marshall Briceño MD Primary Care Provider [phone] Allergies No known active allergies Medications aspirin [...] Description 01/30/2025 10:35 AM EDT Ancillary Procedure [facility] [address] [place] [address] Adjustment and management of cardiac pacemaker 01/28/2025 Orders Only [facility] [address] [place] [address] Connor Roberts MD from Last 3 Months [...] Connor Roberts MD CV IMPLANTABLE CARDIAC DEVICE AK OCEDURES Final Result CPACS * Cardiac device check - Remote pacemaker (01/28/2025 12:00 AM EDT) Anatomical Region Laterality Modality Other 01/28/2025 Connor Roberts MD CV IMPLANTABLE CARDIAC DEVICE AK OCEDURES Final Result from Last [address] [place] [id number] [employer] MEDICARE Care Teams Warp Tying Machine Knotter Relationship Specialty Start Date End Date Marshall Briceño MD [address] [place] [address] PCP - General Family Medicine 05/21/23
--- OUTSIDE RECORDS SUMMARY | 2025-03-03 06:39 | XMS_ITS | Clinical Summary ---
Author Organization [facility] Address [id number] [address] [place] [address] Care Team Providers Care Correctional Case Records Supervisor Name Role Phone Nanette Sherwood MD Primary Care Provider [phone] Allergies No known active allergies Medications CALCIUM CITRATE-VITAMIN D3 ORAL Take by mouth. Activ e cyanocobalamin, vitamin B-12, 1,000 mcg/mL drops Take by mouth. Activ e acetaminophen-c odeine (TYLENOL #3) 300-30 mg per tablet as needed. Active albuterol (PROVENTIL,VENT MARIA T) 2.5 mg /3 mL (0.083 %) nebulizer solution INHALE 1 VIAL VIA NEBULIZER EVERY 4 HOURS 06/18/20 20 Active albuterol (PROVENTIL,VENT MARIA T) 2.5 mg [...] on file Insurance [employer] MEDICARE Care Teams Correctional Case Records Supervisor Relationship Specialty Start Date End Date Nanette Sherwood MD PCP - General Family Medicine 10/06/19
--- OUTSIDE RECORDS SUMMARY | 2025-03-03 06:39 | XMS_ITS ---
Author Organization [facility] Address [address] [place], [place] [id number] Care Team Providers Care Master Coastal Waters Name Role Phone Marshall Briceño MD Primary Care Provider [phone] Active Problems Problem Noted Date Diagnosed Date B12 deficiency 07/13/2017 Diffuse large B cell lymphoma 02/21/2013 Current Treatment and Therapy Plans No current plan information found. Past Treatment and Therapy Plans
--- OUTSIDE RECORDS SUMMARY | 2025-03-03 06:40 | XMS_ITS | Clinical Summary ---
Author Organization [facility] Address [address] [place] [address] Care Team Providers Care Application Security Specialist Name Role Phone Edwige Tyalor PA Unavailable [phone] Connor Muñoz DO Unavailable [phone] Marshall Briceño MD Primary Care Provider [phone] Allergies Active Allergy Reactions Criticality Noted Date [...] outpatient CDI policy. 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[facility]) 07/02/2023 05/31/2024 Wheezing 07/02/2023 05/31/2024 Asthma-chronic obstructive [...] 02/02/2025 1:20 PM EDT Office Visit [facility] [address] [place] [address] Edwige Taylor PA Melanocytic nevus of trunk (Primary Dx); History of SCC (squamous cell carcinoma) of skin; Seborrheic keratosis; Actinic keratosis; Cárdenas angioma; Other seborrheic dermatitis 02/02/2025 Bamboo flowsheet [facility] [address] [place] [address] Edwige Taylor PA 02/02/2025 Travel from Last [...] [facility] [address] [place] [address] Edwige Taylor PA [address] [place] [address] Health Maintenance Due Date Last [...] from Last [address] [place] [address] [place] [address] Care Teams Application Security Specialist Relationship Specialty Start Date End Date Marshall Briceño MD [address] [place] [address] PCP - General Family Medicine 05/31/24 Edwige Taylor PA [address] [id number] Physician Bindery Machine Tender Dermatology 05/31/24 Connor Muñoz DO [address] [place] [address] Otolaryngology 05/31/24
--- OUTSIDE RECORDS SUMMARY | 2025-03-03 06:40 | XMS_ITS | Encounter Summary ---
Author Organization [facility] Address [address] [place] [address] Care Team Providers Care Front End Technician Name Role Phone Nanette Sherwood MD Primary Care Provider [phone] Marshall Briceño MD Primary Care Provider [phone] Source Comments In the event this information is protected by the Federal Confidentiality of Alcohol and Drug AbusePatient Records regulations: The Federal rules restrict any use of the information to criminally investigate or prosecute any alcohol or drug abuse patient.[facility] Encounter Details Date Type Department Care [...] Description 05/22/2025 3:30 PM EDT Office Visit [facility] [address] [place] [address] 6 month lab 05/26/2025 3:00 PM EDT Visit (SP) Office Hematology/Oncology [address] [place] [address] Ginger Bean APRN.DREDGE WORKER [address] [place] [address] 6 month follow up / BRM pt documented as of this encounter Visit Diagnoses Not on filedocumented in this encounter Care Teams Front End Technician Relationship Specialty Start Date End Date Nanette Sherwood MD [address] [place] [address] PCP - General 08/01/05 07/22/23 Marshall Briceño MD [address] [place] [address] PCP - General Family Medicine 07/23/23 documented as of this encounter
--- OUTSIDE RECORDS SUMMARY | 2025-03-03 06:40 | XMS_ITS | Clinical Summary ---
Author Organization [facility] Address [address] [place] [address] Phone Care Team Providers Care Highway Design Engineer Name Role Phone Unavailable Primary Care Provider [...]
--- OUTSIDE RECORDS SUMMARY | 2025-03-03 06:40 | XMS_ITS | Patient Health Record ---
Author Organization [facility] Address [address] [place] [address] Care Team Providers Care Mounter Sousaphones Name Role Phone Marshall Briceño MD Primary Care Provider Chester Bañuelos [phone] Allergies Allergen (clinical drug ingredient) Drug/Non Drug Allergy documented on EMR Reaction Allergy Type Onset Date Status Latex Latex (uncoded) rash Allergy Acti ve Reason For Referral No Information Medications Medication SIG (Take, Route, Frequency, Duration) Notes Start Date End Date Status Azelastine HCl 137 MCG/SPRAY SPRAY 1 SPRAY [...] 1 puff Inhalation Twice a day Active Spiriva Respimat 2.5 MCG/ACT 2 puffs Inhalation Once a day 11/02/2024 Active Albuterol Sulfate (2.5 MG/3ML) 0.083% INHALE 1 VIAL VIA NEBULIZER EVERY 4 HOURS Inhalation for 17 Days Active Tezspire 210 MG/1.91ML as directed Subcutaneous Active Aspirin 81 MG 1 tablet Orally Once a day for 30 day(s) 11/02/2024 Active Fluticasone-Salmeterol 500-50 MCG/ACT 1 puff Inhalation Twice a day Not-Taking Immunizations Vaccine Route Administration Date Status Comme nts Arexvy Unknown 03/21/2024 Administered Comirnatalexandr Sol Voltaics Syringe Pre -Filled 30 mcg/0.3 mL Unknown 05/12/2024 Administered Flu, Fluad (42354) 65 yrs + High Dose Seasonal (6609-1828) Unknown 05/12/2024 Administered Pneumococcal (Pneumovax 23) Unknown 05/25/2018 Administ ered Tdap (Boostrix) Unknown 05/09/2020 Administered ZOSTER (SHINGLES) VACCINE (HZV) Unknown 07/24/2020 Admi nistered Social History Tobacco Use: Social History Observation [...] Problem Status W/U Status Risk Notes Problem 31920645 Centrilobular emphysema (J43.2) Active confirmed Problem Uncomplicated severe persistent asthma (728337692) Severe persistent asthma, uncomplicated (J45.50) Active confirmed Problem Chronic respiratory failure (98852684) Chronic respiratory failure with hypoxia (J96.11) Active confirmed Problem 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 Problem 207877301 retirement (current) use of inhaled steroids (Z79.51) Active confirmed Problem Hypothyroidism (35399046) Hypothyroidism (E03.9) Active confirmed Problem Obesity (187841442) Obesity (E66.9) Active confirmed Problem Sleep apnea (54146154) Sleep apnea (G47.30) Active confirmed Problem Obstructive sleep apnea syndrome (48588741) JUANA (obstructive sleep apnea) (G47.33) Active confirmed Problem Ex-tobacco user (finding) (116237727) History of tobacco abuse (Z87.891) Active confirmed Problem 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33186050) 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) Active confirmed Problem Prolonged QT interval (984705901) Prolonged QT interval (R94.31) Active confirmed Problem Secondary pulmonary hypertension (42209806) Other secondary pulmonary hypertension (I27.29) Active confirmed Problem Pulmonary hypertension (83572608) Pulmonary hypertension (I27.20) Active confirmed Vital Signs Heart Rate 81 /min 02/01/2025 RA Activity/Res ting Temperature 97.0 degrees Fahrenheit 02/01/2025 RA A ctivity/Resting Respiratory Rate 20 /min 02/01/2025 RA Activity /Resting Blood pressure diastolic 68 mm Hg 02/01/2025 RA Activity/Resting Oximetry 92 % 02/01/2025 RA Activity/Res ting Height 63 in 02/01/2025 RA Activity/Res ting Blood pressure systolic 138 mm Hg 02/01/2025 RA A ctivity/Resting Weight 217.2 lbs 02/01/2025 RA Activity/Res ting BMI 38.47 kg/m2 02/01/2025 RA Activity/Res ting Encounters Encounter Location Date Provider Diagnosis [facility] [place] [address] [place] [address] 10/13/2024 [facility] [place] [address] [place] [address] 02/01/2025 [facility] Severe persistent asthma, uncomplicated J45.50 ; Centrilobular emphysema J43.2 ; Chronic respiratory failure with hypoxia J96.11 ; JUANA (obstructive sleep apnea) G47.33 ; Cystic fibrosis carrier Z14.1 ; Prolonged QT interval R94.31 ; Radiation fibrosis of lung J70.1 ; Other secondary pulmonary hypertension I27.29 ; History of tobacco abuse Z87.891 ; long term care administrator (current) use of inhaled steroids Z79.51 and Obesity E66.9 [facility] [place] [address] [place] [address] 11/02/2024 [facility] Severe persistent asthma, uncomplicated J45.50 ; Centrilobular emphysema J43.2 ; Chronic respiratory failure with hypoxia J96.11 ; JUANA (obstructive sleep apnea) G47.33 ; Cystic fibrosis carrier Z14.1 ; Prolonged QT interval R94.31 ; Radiation fibrosis of lung J70.1 ; Other secondary pulmonary hypertension I27.29 ; History of tobacco abuse Z87.891 ; retirement (current) use of inhaled steroids Z79.51 and [...] evidence for metabolic compensation of respiratory acidosis. 02/01/2025 Severe persistent asthma, uncomplicated (ICD-10 - [...] Centrilobular emphysema (ICD-10 - J43.2) Asthma-COPD overlap 11/02/2024 Chronic respiratory failure with hypoxia (ICD-10 - J96.11) Phdw-mh-fucb encounter performed with the patient to document [...] JUANA (obstructive sleep apnea) (ICD-10 - G47.33) Zvso-ji-ypwz encounter performed with the patient to document continued need for PAP therapy. -Current DME: B[facility] -PS12/14/2018; Initial AHI: 59 (3% criteria), 45 (4% criteria) -Last PAP titration: 12/28/2018 @ [id number] -CPAP set-up: 01/11/2019 -No compliance available -Mask/harness [...] bedtime and with any naps. -Note: This xjzx-ym-zjxf visit comes with my authorization that the patient's DME may request to renew, reorder, and/or replace tubing, supplies, mask, and/or PAP device (if applicable). 02/01/2025 Chronic respiratory failure with hypoxia (ICD-10 - J96.11) Vlam-ez-qpih encounter performed with the patient to document [...] JUANA (obstructive sleep apnea) (ICD-10 - G47.33) Xvzn-lp-btna encounter performed with the patient to document continued need for PAP therapy. -Current DME: [facility] -PS12/14/2018; Initial AHI: 59 (3% criteria), 45 (4% criteria) -Last PAP titration: 12/28/2018 @ [id number] -Compliance reviewed 01/02/2025 - 01/31/2025 -Overall use: 30/30 (100%) days ->4 hour use: 29/30 (97%) days -Settings: AirSense 11 AutoSet CPAP [id number] -Residual AHI: 2.3 -Air leak (median): 15.7L/min [...] bedtime and with any naps. -Note: This upaq-qr-wwim visit comes with my authorization that the patient's DME may request to renew, reorder, and/or replace tubing, supplies, mask, and/or PAP device (if applicable). 11/02/2024 Cystic fibrosis carrier (ICD-10 - Z14.1) Evaluted at [facility] under Dr. Mayra Berg. Continue pulmonary toilet [...] recall discussing Daliresp as an option. 02/01/2025 Cystic fibrosis carrier (ICD-10 - Z14.1) Evaluted [facility] under [facility] Mayra Berg. Continue pulmonary toilet [...] is typically treating the underlying disorder(s). 02/01/2025 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ICD-10 - [...] age, time from cessation, # pack-years). 11/02/2024 long term care administrator (current) use of inhaled steroids (ICD-10 - Z79.51) Patient was counseled to rinse & gargle with water after inhaled corticosteroid use. 02/01/2025 History of tobacco abuse (ICD-10 - Z87.891) 1ppd x 15 years, quit ~1987 This patient does not meet current LDCT criteria (e.g. age, time from cessation, # pack-years). 02/01/2025 retirement (current) use of inhaled steroids (ICD-10 - Z79.51) Patient was counseled to rinse & gargle with water after inhaled corticosteroid use. 11/02/2024 Obesity (ICD-10 - E66.9) Patient's weight is inducing a restrictive pulmonary physiology. Weight loss indicated: Decrease calories, increase activity. 02/01/2025 Obesity (ICD-10 - E66.9) Patient's weight is inducing a restrictive pulmonary physiology. Weight loss indicated: Decrease calories, increase activity. Plan Of Treatment No Information Insurance Providers Payer Name Payer Address Payer Phone Subscriber Number Group Number Insured Name Patient Relationship to Insured Coverage Start Date Coverage End Date [facility] [employer] [address] [address] [place] [address] [id number] Berylstefano Dorian Self - patient is the insured Medical (General) History Medical History History ICD Code JUANA (obstructive sleep apnea) G47.33 Severe persistent asthma, uncomplicated J45.50 Centrilobular emphysema J43.2 Cystic fibrosis carrier Z14.1 Chronic respiratory failure with hypoxia J96.11 Obesity E66.9 Non-Hodgkin lymphoma C85.90 Hypothyroidism E03.9 Radiation fibrosis of lung J70.1 Esophageal dysmotility K22.4 Other secondary pulmonary hypertension I 27.29 Chronic sinusitis J32.9 Prolonged QT interval R94.31 History of stroke Z86.73 History of prostate cancer Z85.46 History of tobacco abuse Z87.891 Surgical History Surgery Date(Month/Year) cardiac pacemeker Cardiac Catheterization lymph node resection melanoma excision Hospitalization History Reason Date(Month/Year) COPD Exacerbation-[facility] 10/11/2024
--- OUTSIDE RECORDS SUMMARY | 2025-03-03 06:41 | XMS_ITS | CCD ---
Author Organization [facility] Care Team Providers Care Chief Informatics Officer Name Role Phone CHANCECRESCENCIO Referring WILL Aguilar Primary Care Unavailable MYA BHAKTA Attending Unavailable MYA BHAKTA Admitting Unavailable CT Procedure Practitioner Unavailab CONNOR Herrera Surgeon Unavailable MYA BHAKTA Surgeon Unavailable CT Procedure Practitioner Unavailab WILL Jackson Primary Care Physician [phone] Will Sherwood MD Primary Care Provider JARETT, [...] JENICRISTÓBAL Consulting Unavailable JENI, CRISTÓBAL Admitting Unavailable JENI, CRISTÓBAL Attending Unavailable JARETT, DR WILL Del Toro [...] Care Provider Pito Patterson. Primary Care Physician Pito Patterosn MD Primary Care Provider [phone] Unallocated Mohit VENTURA Provider Primary Care Provi preet Crys Liu Unavailable Connor Crawley DO Unavailable [phone] Pito Patterson MD Primary Care Provider [phone] DO Connor Crawley Attending Provider MD Pito Patterson Primary Care Provider Unallocated Mohit VENTURA Provider Primary Care Provi preet Connor Crawley Admitting Unavailable Connor Crawley Attending Unavailable Ross, Pito E Primary Care Unavailable TYLER DRAPER Referring [...] Unavailable ROSS, PITO E Primary Care Unavailable GEOFF TAYLORE Attending Unavailable CRYS TAYLOR Attending Unavailable TYLER DRAPER Referring Unavailable CONNOR CRAWLEY Attending Unavailable CRYS TAYLOR Referring Unavailable CONNOR CRAWLEY Attending Unavailable CONNOR CRAWLEY Attending Unavailable CRYS TAYLOR Attending Unavailable Marlys Olivia Primary Care Physician Marlys Olivia Admitting Unavailable CorwinMarlys Attending Unavailable Pito Patterson Attending Unavailable CorwinMarlys Attending Unavailable CorwinMarlys Attending Unavailable CorwinMarlys Attending Unavailable Pito Patterson EJeffery Attending Unavailable Navarro, Pito EJeffery Attending Unavailable Navarro, Pito E. Attending Unavailable Oni MCKEON Attending Unavailable Oni MCKEON Attending Unavailable CorwinMarlys min Admitting Unavailable CorwinMarlys Attending Unavailable CorwinMarlys Admitting Unavailable Corwin Marlys L Attending Unavailable Pito Patterson Admitting Unavailable MARKUS CERNA Attending Unavailable Pito Patterson Attending Unavailable DANIELLA EASTON Attending Unavailable DANIELLA EASTON Attending Unavailable CONNOR CARRERA Referring Unavailable CONNOR CARRERA Referring Unavailable CONNOR CARRERA Referring Unavailable Allergies Allergy Classification Reported Allergen(s) Allergy Type Date of Onset Reaction(s) Facility (16 sources) Spironolactone; Translations: [SPIRONOLACTONE ] Drug Allergy 2 Other: See Comments [facility] (2 sources) Latex Propensity to adverse reactions 5 Rash [facility] Medications Current Medications Medication Drug Class(es) Dates Sig (Normalized) Sig (Original) 1.91 ML tezepelumab-ekko 110 MG/ML Auto-Injector [Tezspire] (2 sources) Start: 02-15-2024 Tezspire Pre-filled Pen 210 mg/1.91 mL subcutaneous solution 210 mg, SubCutaneous, q4wk, patient not sure of dose, Refills(s) 0 Start Date: 02/15/24 Status: Ordered Repeat number: 1 Start: 02-15-2024 Tezspire Pre-f illed Pen 210 mg/1.91 mL subcutaneous solution 210 mg, SubCutaneous, q4wk, patient not sure of dose, Refills(s) 0 Start Date: 02/15/24 Status: Ordered Acetaminophen / Codeine (20 sources) Opioid Agonist Start: 02-24-2019 take 1 tablet by mouth every six hours acetaminophen-codeine #3 tab(s), Oral, q6hr Start Date: 02/24/19 Status: Ordered acetaminophen-co deine (Tylenol w/ Codeine #3) 300-30 MG tablet Active Comment on above: acetaminophen 300 mg -codeine 30 mg tablet albuterol 0.83 mg/ml inhalation solution (20 sources) beta2-Adrenergic Agonist Start: 11-01-2024 albuterol 0.083% Inh Kasie 3 mL See Instructions, 300 mL, Refill(s) 3, INHALE 1 VIAL VIA NEBULIZER EVERY 4 HOURS, [id number], 168, cm, 08/25/24 11:21:00 EST, Height/Length Dosing, 101.3, kg, 08/25/24 11:21:00 EST, Weight Dosing Start Date: 11/01/24 Status: Ordered Quantity: 300.0 Unit: mL Repeat number: 1 Start: 06-01-2024 take 2.5 mg by inhal ation four times daily Albuterol Sulfate Active 2.5 MG INHALATION Four times daily June 01, 2024 12:00am Start: 02-22-2024 albuterol 0.08 3% Inh Kasie 3 mL See Instructions, 300 mL, Refill(s) 3, INHALE 1 VIAL VIA NEBULIZER EVERY 4 HOURS, [id number], 161, cm, 02/15/24 10:32:00 EDT, Height/Length Dosing, 102, kg, 02/15/24 10:32:00 EDT, Weight Dosing Start Date: 02/22/24 Status: Ordered Start: 10-19-2023 take 1 dose by inhal ation every four hours albuterol 0.083% Inh Kasie 3 mL See Instructions, 300 mL, Refill(s) 3, INHALE 1 VIAL VIA NEBULIZER EVERY 4 HOURS, [facility]/pharmacy #[id number], 168, cm, 10/19/23 8:08:00 EST, Height/Length [...] 1 VIAL VIA NEBULIZER EVERY 6 HOURS, [id number], 162, cm, 10/28/22 15:18:00 EDT, Height/Length Dosing, [...] (20 sources) Anticholinergic, beta2-Adrenergic Agonist Start: 02-25-20 take 1 dose by inhalation every six [...] Date: 05/11/23 Status: Ordered Repeat number: 1 Comment on above: Take 81 mg by mouth once daily. azelastine hydrochloride 0.137 mg/actuat metered dose nasal spray (17 sources) Histamine-1 Receptor Antagonist Start: 06-01-20 Azelastine Active 1 SPRAY INTRANASAL Twice daily June 01, 2024 12:00am Start: 04-21-2024 take 1 spray(s) nasa l route in the morning azelastine (Astelin) 0.1 % nasal spray Administer 1 spray into affected nostril(s) in the morning and 1 spray in the evening. 04/21/2024 Active budesonide 0.25 mg/ml inhalation suspension (20 sources) Corticosteroid Start: 04-29-2024 take 1 dose by inhalation twice daily budesonide 0.5 mg/2 mL Inh Susp See Instructions, USE 1 VIAL VIA NEBULIZER TWICE A DAY, # 360 mL, Refills(s) 3, Pharmacy: [id number], 168, cm, 04/22/24 10:00:00 EDT, Height/Length Dosing, 101.4, kg, 04/22/24 10:00:00 EDT, Weight Dosing Start Date: 04/29/24 Status: Ordered Quantity: 360.0 Unit: mL Repeat number: 1 Start: 12-31-2023 budesonide (Pu lmicort) 1 MG/2ML nebulizer solution 2 mL 12/31/2023 Active Start: 10-26-2023 take 0.5 mg by inhal ation twice daily budesonide 0.5 mg/2 mL Inh Susp 0.5 mg = 2 mL, NEB, BID, # 120 mL, Refills(s) 11, Pharmacy: [facility]/pharmacy #[id number], 168, cm, 10/19/23 8:08:00 EST, Height/Length [...] BID, # 120 mL, Refills(s) 11, Pharmacy: [facility]/pharmacy #[id number], 162, cm, 10/28/22 15:18:00 EDT, Height/Length Dosing, 99.8, kg, 10/28/22 15:18:00 EDT, Weight Dosing Start Date: 10/28/22 Status: Ordered Start: 02-24-2019 take 0.5 mg by inhal ation twice daily budesonide 0.5 mg/2 mL Inh Susp 0.5 mg = 2 mL, NEB, BID, # 120 mL Start Date: 02/24/19 Status: Ordered budesonide (Pulm icort) 0.5 MG/2ML nebulizer solution Active budesonide (Pulm icort) 0.5 MG/2ML nebulizer solution USE 1 VIAL VIA NEBULIZER TWICE A DAY Active Comment on above: 2 mL. calcium carbonate 1500 mg or al tablet (16 sources) calcium carbonat e 1500 (600 Ca) MG tablet every 12 (twelve) hours Active Calcium Citrate / Vitamin D (7 sources) Start: 02-24-2019 calcium-vitami n D Start Date: 02/24/19 Status: Ordered Repeat number: 1 Start: 02-24-2019 calcium-vitami n D Start Date: 02/24/19 Status: Ordered CALCIUM CITRATE-VITAMIN D3 O RAL (15 sources) CALCIUM CITRATE- VITAMIN D3 ORAL Take by mouth. Active CALCIUM CITRATE- VITAMIN D3 ORAL Take by mouth. 0 Active Comment on above: Take by mouth. cefadroxil 500 mg oral capsule (2 sources) Cephalosporin Antibacterial Start: End: take 1 capsule by mouth in [...] 10 days. 30 capsule 06/09/2024 06/19/2024 Active cetirizine hydrochloride 10 mg oral tablet (1 source) Histamine-1 Receptor Antagonist Start: take 1 tablet by mouth once daily cetirizine 10 mg Tab 10 mg = 1 tab(s), Oral, Daily, # 90 tab(s), Refills(s) 0, Pharmacy: [facility], 168, cm, 11/24/24 13:08:00 EDT, Height/Length Dosing, 100.3, kg, 11/24/24 13:08:00 EDT, Weight Dosing Start Date: 11/24/24 Status: Ordered Quantity: 90.0 Unit: tab(s) Repeat number: 1 cholecalciferol 0.025 mg oral tablet (20 sources) Vitamin D cholecalciferol (Vitamin D-[address]) 25 MCG (1000 UT) tablet Take 1,000 Units by mouth Active cholecalciferol (VITAMIN D3) 1,000 unit tab tablet Take 1,000 Units by mouth. Active Comment on above: Take 1,000 Units by mouth. ciclopirox 10 mg/ml medicated shampoo (2 sources) Start: 02-02-2025 Ciclopirox 1 % shampoo Indications: Other seborrheic dermatitis Lather on wet hair, leave on 5 min, rinse 2-3 x week, 30 day supply 120 mL 02/02/2025 Active cyanocobalamin, vitamin B-12, (VITAMIN B-12 ORAL) (15 sources) cyanocobalamin, vitamin B-12, (VITAMIN B-12 ORAL) Take by mouth. Active cyanocobalamin, vitamin B-12, (VITAMIN B-12 ORAL) Take by mouth. 0 Active Comment on above: Take by mouth. doxycycline hyclate 100 mg oral capsule (20 sources) Tetracycline-cla ss Drug take 1 capsule by mouth in the morning doxycycline (Vibramycin) 100 MG capsule Take 100 mg by mouth in the morning. Active Comment on above: Take 100 mg by mouth once daily. Electric scooter (3 sources) Start: 05-17-2024 Electric scooter Electric scooter, See Instructions, 1 EA, 0, For Debility, Supply Start Date: 05/17/24 Status: Ordered Quantity: 1.0 Unit: EA Repeat number: 1 Indications: Unspecified hearing loss, unspecified ear; Start: 09-03-2023 Electric scoot er Electric scooter, See Instructions, 1 EA, 0, Pt would like an electric scooter, Supply Start Date: 09/03/23 Status: Ordered ferrous sulfate 325 mg oral tablet (15 sources) Start: 05-16-2021 ferrous sulfat e 325 mg (65 mg iron) tablet 05/16/2021 Active 60 actuat fluticasone propionate 0.5 mg/actuat / salmeterol 0.05 mg/actuat dry powder inhaler (2 sources) Corticosteroid, beta2-Adrenergic Agonist Fluticasone-Salmet rowan 500-50 MCG/ACT aerosol powder 1 puff every 12 (twelve) hours Active furosemide 40 mg oral tablet (20 sources) Loop Diuretic Start: 01-22-2023 take 1 tablet by mouth once daily furosemide 40 mg Tab 40 mg = 1 tab(s), Oral, Daily, Refills(s) 0 Start Date: 01/22/23 Status: Ordered Repeat number: 1 Start: 06-26-2021 furosemide (LA SIX) 20 mg tablet q 24 HR. 06/26/2021 Active Comment on above: q 24 HR. gabapentin 300 mg oral capsule (20 sources) Anti-epileptic Agent Start: 05-11-2023 take 1 capsule by mouth at bedtime gabapentin (Neurontin) 300 MG capsule Take 300 mg by mouth at bedtime 05/11/2023 Active Start: 03-09-2023 take 1 capsule by [facility] once daily at bedtime gabapentin 300 mg Cap 300 mg = 1 cap(s), Oral, Once a day (at bedtime), # 30 cap(s), Refills(s) 0, Pharmacy: [facility]/pharmacy #[id number], 168, cm, 03/09/23 11:04:00 EDT, Height/Length Dosing, 103, kg, 03/09/23 11:04:00 EDT, Weight Dosing Start Date: 03/09/23 Status: Ordered Start: 01-22-2023 take 1 capsule by [facility] once daily at bedtime gabapentin 300 mg Cap 300 mg = 1 cap(s), Oral, Once a day (at bedtime), # 30 cap(s), Refills(s) 0, Pharmacy: [facility]/pharmacy #[id number], 162, cm, 01/22/23 13:19:00 EDT, Height/Length Dosing, 98.3, kg, 01/22/23 13:19:00 EDT, Weight Dosing Start Date: 01/22/23 Status: Ordered Handicap Placard, 5 years. (3 sources) Start: 10-19-[address], 5 [...] pacemaker; Body mass index [BMI] 35.0-35.9, adult; Start: 10-19-[address], 5 years. Handicap Placard, 5 years., See Instructions, 1 EA, 0, Handicap Placard, 5 years., Supply Start Date: 10/19/23 Status: Ordered ipratropium bromide 0.042 mg/actuat metered dose nasal spray (20 sources) Anticholinergic Start: 04-21-2024 take 2 spray(s) nasal route in the morning ipratropium (Atrovent) 0.06 % nasal spray Administer 2 sprays into affected nostril(s) in the morning and 2 sprays in the evening. 04/21/2024 Active Start: 03-13-2023 End: 03-07-2024 take 2 spray(s) nasal route twice daily, then take 2 spray(s) nasal route twice daily ipratropium Nasal 0.06% [place] 2 spray(s), Nasal, BID for 90 day(s), 45 mL, Refill(s) 3, PLACE 2 SPRAYS IN EACH NOSTRIL TWO TIMES DAILY., [facility]/pharmacy #[id number], 168, cm, 03/09/23 11:04:00 EDT, Height/Length Dosing, 103, kg, 03/09/23 11:04:00 EDT, Weight Dosing Start Date: 03/13/23 Stop Date: 03/07/24 Status: Ordered Start: 02-20-2023 take 1 dose nasal ro peoria twice daily, then take 2 spray(s) nasal route twice daily ipratropium Nasal 0.06% [place] 2 spray(s), Nasal, BID, 1 EA, Refill(s) 1, PLACE 2 SPRAYS IN EACH NOSTRIL TWO TIMES DAILY., [facility]/pharmacy #[id number], 162, cm, 01/22/23 13:19:00 EDT, Height/Length Dosing, 98.3, kg, 01/22/23 13:19:00 EDT, Weight Dosing Start Date: 02/20/23 Status: Ordered Start: 01-22-2023 take 1 dose nasal ro peoria twice daily, then take 2 spray(s) nasal route twice daily ipratropium Nasal 0.06% [place] 2 spray(s), Nasal, BID, 1 EA, Refill(s) 1, PLACE 2 SPRAYS IN EACH NOSTRIL TWO TIMES DAILY., [id number], [facility], 01/22/23 13:19:00 EDT, Height/Length Dosing, 98.3, kg, 01/22/23 13:19:00 EDT, Weight Dosing Start Date: 01/22/23 Status: Ordered levothyroxine sodium 0.1 mg oral tablet (20 sources) l-Thyroxine Start: 01-31-2025 take 1 tablet by mouth once daily levothyroxine 100 mcg (0.1 mg) Tab See Instructions, TAKE 1 TABLET BY MOUTH EVERY DAY, # 90 tab(s), Refills(s) 0, Pharmacy: [id number], 168, cm, 11/24/24 13:08:00 EDT, Height/Length Dosing, 100.3, kg, 11/24/24 13:08:00 EDT, Weight Dosing Start Date: 01/31/25 Status: Ordered Quantity: 90.0 Unit: tab(s) Repeat number: 1 Start: 04-22-2024 take 1 tablet by noe th once daily levothyroxine 100 mcg (0.1 mg) Tab See Instructions, TAKE 1 TABLET BY MOUTH EVERY DAY, # 90 tab(s), Refills(s) 0, Pharmacy: [id number], 161, cm, 02/15/24 10:32:00 EDT, Height/Length Dosing, 102, kg, 02/15/24 10:32:00 EDT, Weight Dosing Start Date: 04/22/24 Status: Ordered Start: 10-19-2023 take 1 tablet by noe th once daily levothyroxine 100 mcg (0.1 mg) Tab 100 mcg = 1 tab(s), Oral, Daily, # 90 tab(s), Refills(s) 0, Pharmacy: [facility]/pharmacy #[id number], 168, cm, 10/19/23 8:08:00 EST, Height/Length [...] before breakfast. loratadine 10 mg oral tablet (16 sources) take 1 tablet by mouth once daily loratadine (Claritin) 10 MG tablet Take 1 tablet by mouth Daily Active 24 hr metoprolol succinate 25 mg extended release oral tablet (20 sources) beta-Adrenergic Xochitl Start: 07-28-2023 End: 07-27-2024 take 1 tablet by mouth every twenty-four hours at bedtime metoprolol succinate XL (Toprol-XL) 25 MG 24 hr tablet Take 25 mg by mouth at bedtime 07/28/2023 Active Start: 10-28-2022 take 25 mg by mouth once daily Metoprolol Succinate Active 25 MG PO Daily June 01, 2024 12:00am Start: 10-28-2022 metoprolol 25 mg ER Tab 12.5 mg = 0.5 tab(s), Oral, Daily, # 30 tab(s), Refills(s) 0 Start Date: 10/28/22 Status: Ordered take 25 mg by mouth once daily M ETOPROLOL SUCCINATE ORAL Take 25 mg by mouth once daily. Active Comment on above: Take 25 mg by mouth once daily. montelukast 10 mg oral tablet (19 sources) Leukotriene Receptor Antagonist Start: 04-22-2024 montelukast 10 mg Tab Refills(s) 0 Start Date: 04/22/24 Status: Ordered Repeat number: 1 Nebulizer accessory set (6 sources) Start: 01-22-2023 Nebulizer accessory set Nebulizer [...] Chronic obstructive pulmonary disease, unspecified; Hypothyroidism, unspecified; Start: 01-22-2023 Nebulizer acce ssory set Nebulizer accessory set, See Instructions, 1 EA, 0, pt to use nebulizer as prescribed for COPD, [facility] ([facility] Supply, 162, cm, 01/22/23 13:19:00 EDT, Height/Length Dosing, 98.3, kg, 01/22/23 13:19:00 EDT, Weight Dosing Start Date: 01/22/23 Status: Ordered Oxygen - for Home (2 sources) Start: 02-15-2024 Oxygen - for H ome 4 L/min, Daily, Refill(s) 0, Oxygen - patient states his drop tester just increased this to 4LPM Start Date: 02/15/24 Status: Ordered Repeat number: 1 Start: 02-15-2024 Oxygen - for H ome 4 L/min, Daily, Refill(s) 0, Oxygen - patient states his drop tester just increased this to 4LPM Start Date: 02/15/24 Status: Ordered polyethylene glycol 3350 51580 mg powder for oral solution (15 sources) Osmotic Laxative Start: 08-04-2017 polyethylene glycol 3350 (MIRALAX, GLYCOLAX) 17 gram/dose powder MIX 1 TABLESPOONFUL DIRECTED AND DRINK EVERY DAY 3 08/04/2017 Active Comment on above: MIX 1 TABLESPOONFUL DIRECTED AND DRINK EVERY DAY predniSONE 10 mg oral tablet (20 sources) take 1 tablet by mouth in the morning predniSONE (Deltasone) 10 MG tablet Take 10 mg by mouth in the morning. Active Comment on above: Take 10 mg by mouth once daily. Salmeterol (20 sources) beta2-Adrenergic Agonist Start: 06-01-2024 take 50 ug by inhalation twice daily [...] 3 EA, Refill(s) 3, [facility] ([facility]), 168, cm, 03/09/23 11:04:00 EDT, [...] daily. salmon calcitonin 200 unt/actuat nasal spray (16 sources) Calcitonin calcitonin, salmon, (Miacalcin) 200 UNIT/ACT nasal spray 1 spray 1 (one) time each day at the same time Active sodium chloride 35 mg/ml inhalation solution (20 sources) Start: take 4 mL by inhalation in the morning HyperSal 3.5 % nebulizer solution nebulizer solution Inhale 4 mL in the morning and 4 mL in the evening. 04/21/2024 Active Start: 02-15-2024 Hyper-Flaco 3.5% inhalation solution See Instructions, Refill(s) 0, per neulizer BID, skip one dose with increased swelling in feet- per patient Start Date: 02/15/24 Status: Ordered Repeat number: 1 Start: 11-17-2023 sodium chlorid e 7 % nebulizer solution nebulizer solution 11/17/2023 Active Start: 11-17-2023 take 4 mL by inhalat [...] TEZSPIRE 210 mg/1.91 mL (110 mg/mL) injection (9 sources) Start: 04-05-2024 TEZSPIRE 210 mg/1.91 mL (110 mg/mL) injection 04/05/2024 Active Tezspire 210 MG/1.91ML solution auto-injector (16 sources) Start: 04-05-2024 Tezspire 210 MG/1.91ML solution auto-injector 04/05/2024 Active tiotropium 0.018 mg inhalation powder (20 sources) Anticholinergic Start: 10-27-2024 tiotropium 18 mcg Inh Cap See Instructions, INHALE 2 INHALATIONS FROM THE CONTENTS OF 1 CAPSULE BY MOUTH VIA INHALATION DEVICE ONCE DAILY, # 90 cap(s), Refills(s) 3, Pharmacy: [facility], 168, cm, 08/25/24 11:21:00 EST, Height/Length Dosing, 101.3, kg, 08/25/24 11:21:00 EST, Weight Dosing Start Date: 10/27/24 Status: Ordered Quantity: 90.0 Unit: cap(s) Repeat number: 1 Start: 06-01-2024 take 1 capsule by in halation once daily Tiotropium Nuevo Active 1 CAP INHALATION Daily June 01, [...] B12 St art Date: 02/24/19 Status: Ordered Repeat number: 1 Start: 02-24-[address] art Date: 02/24/19 Status: Ordered Cyanocobalamin ( Vitamin B 12) 100 MCG lozenge Active take 1 tablet by noe th in the morning cyanocobalamin (Vitamin B-12) 1000 MCG tablet Take [...] procedure, # 2 tab(s), Refills(s) 0, Pharmacy: [facility]/pharmacy #[id number], 168, cm, 03/09/23 11:04:00 EDT, Height/Length Dosing, 103, kg, 03/09/23 11:04:00 EDT,... Start Date: 03/10/23 Status: Ordered indacaterol (8 sources) Start: 02-24-2019 [...] provided with radiology test) (1 source) Start: End: iv contrast (will be provided with radiology [...] administration guidelines link. 1 Each 06/10/2024 06/11/2024 potassium chloride 10 meq extended release oral capsule (20 sources) Start: 4 take 1 tablet by mouth once daily potassium chloride 10 mEq ER Tab 10 mEq = 1 tab(s), Oral, Daily, # 90 tab(s), Refills(s) 1, Pharmacy: [facility], 168, cm, 08/24/23 10:28:00 EST, Height/Length Dosing, 97.4, kg, 08/24/23 10:28:00 EST, Weight Dosing Start Date: 08/24/23 Status: Ordered Start: 01-22-2023 take 1 tablet by [facility] once daily potassium chloride 10 mEq ER Tab 10 mEq = 1 tab(s), Oral, Daily, Refills(s) 0 Start Date: 01/22/23 Status: Ordered Start: 06-26-2021 take 1 capsule by [facility] once daily potassium chloride 10 mEq Cap-ER 10 mEq = 1 cap(s), Oral, Daily, # 90 cap(s), Refills(s) 4, Pharmacy: [facility], 168, cm, 04/22/24 10:00:00 EDT, Height/Length Dosing, 101.4, kg, 04/22/24 10:00:00 EDT, Weight Dosing Start Date: 05/02/24 Status: Ordered Quantity: 90.0 Unit: cap(s) Repeat number: 5 Problems Active Problems Problem Classification Problem Date Documented Date Episodic/Chronic Abdominal hernia (19 sources) Hernia of anterior abdominal wall; Translations: [Ventral hernia without obstruction or gangrene] Onset: 05-21-2023 Resolved: 05-31-2024 10-28-2022 Episodic Cancer of prostate (20 sources) Personal history of malignant neoplasm of prostate; Translations: [History of malignant neoplasm of prostate] Onset: 11-19-2021 Resolved: 05-31-2024 Episodic Chronic kidney disease (16 sources) Chronic kidney disease stage 3A ; Translations: [Chronic kidney disease, stage 3a (HCC)] Onset: 04-15-2024 Resolved: 05-31-2024 10-19-2023 Chronic Chronic obstructive pulmonary disease and bronchiectasis (20 sources) Asthma-chronic obstructive pulmonary disease overlap syndrome; Translations: [Chronic obstructive pulmonary disease, unspecified] Onset: 05-20-2021 Resolved: 05-31-2024 02-24-2019 Chronic Conduction disorders (20 sources) Cardiac pacemaker in situ; Translations: [Presence of cardiac pacemaker] Onset: 08-03-2020 Resolved: 05-31-2024 10-16-2023 Chronic Comment on above: noted in 07/28/2023 Cardiology Consult Note page 1. added per [facility]I policy. Congestive heart failure; nonhypertensive (20 sources) Chronic systolic (congestive) heart failure; Translations: [Heart failure, unspecified] Onset: 04-29-2021 Resolved: 05-31-2024 Chronic Comment on above: Noted in 05/21/2023 U T page 1, added per outpatient CDI policy. Deficiency and other anemia (17 sources) Macrocytic anemia; Translations: [Nutritional anemia, unspecified] Onset: 05-31-2024 Resolved: 05-31-2024 Episodic Comment on above: noted in 07/21/2023 Cardiology Consult Note page 4. added per [facility]I policy. Diabetes mellitus without complication (14 sources) Hyperglycemia; Translations: [Hyperglycemia, unspecified] Onset: 05-31-2024 Resolved: 05-31-2024 05-31-2024 Episodic Disorders of lipid metabolism (19 sources) Hyperlipidemia, unspecified; Translations: [Hypertriglyceridemia ] Onset: 02-10-2022 Resolved: 05-31-2024 Chronic Hyperplasia of prostate (20 sources) Benign prostatic hypertrophy with outflow obstruction; Translations: [Benign prostatic hyperplasia with lower urinary tract symptoms] Onset: 11-19-2021 Resolved: 05-31-2024 Chronic Immunity disorders (4 sources) Hypergammaglobulinemi a, unspecified; Translations: [HYPERGAMMAGLOBULINEM IA UNSPECIFIED] Onset: 09-24-2021 Chronic Lymphadenitis (6 sources) Lymphadenopathy; Translations: [Enlarged lymph nodes, unspecified] Onset: 11-15-2024 04-19-2024 Episodic Neoplasms of unspecified nature or uncertain behavior (20 sources) Monoclonal gammopathy of uncertain significance; Translations: [Monoclonal gammopathy] Onset: 09-09-2023 Resolved: 05-31-2024 Chronic Neoplasms of unspecified nature or uncertain behavior (2 sources) Neoplastic disease; Translations: [Neoplasm of unspecified behavior of bone, soft tissue, and skin] 05-03-2024 Episodic Non-Hodgkin`s lymphoma (20 sources) History of B-cell lymphoma; Translations: [History of malignant lymphoma] Onset: 05-21-2023 Resolved: 05-31-2024 10-28-2022 Episodic Nutritional deficiencies (1 source) Vitamin D deficiency, unspecified; Translations: [VITAMIN D DEFICIENCY UNSPECIFIED] Onset: 05-03-2021 Chronic Nutritional deficiencies (20 sources) Cobalamin deficiency; Translations: [Deficiency of other specified B group vitamins] Onset: 07-13-2017 Resolved: 05-31-2024 07-13-2017 Episodic Other and unspecified benign neoplasm (2 sources) Hemangioma of skin and subcutaneous tissue; Translations: [Hemangioma of skin and subcutaneous tissue] 05-03-2024 Episodic Other and unspecified benign neoplasm (4 sources) Melanocytic nevus of trunk; Translations: [Melanocytic nevi of trunk] 08-04-2024 Episodic Other and unspecified benign neoplasm (2 sources) Senile angioma; Translations: [Hemangioma of skin and subcutaneous tissue] 02-02-2025 Episodic Other circulatory disease (6 sources) History of cerebrovascular disease 10-28-2022 Episodic Other circulatory disease (2 sources) Spider nevus; Translations: [Nevus, non-neoplastic] 08-04-2024 Episodic Other ear and sense organ disorders (16 sources) Hearing loss; Translations: [Unspecified hearing loss, unspecified ear] Onset: 05-21-2023 Resolved: 05-31-2024 04-07-2023 Chronic Other eye disorders (5 sources) Anisocoria; Translations: [ANISOCORIA] Onset: 05-16-2021 Chronic Other fractures (1 source) Compression fracture of vertebral column 02-24-2019 Episodic Other fractures (6 sources) Wedge fracture of thoracic vertebra 10-28-2022 Episodic Other hereditary and degenerative nervous system conditions (19 sources) Essential tremor; Translations: [Essential tremor] Onset: 07-31-2021 Resolved: 05-31-2024 10-28-2022 Chronic Other inflammatory condition of skin (2 sources) Seborrheic dermatitis; Translations: [Other seborrheic dermatitis] 02-02-2025 Episodic Other injuries and conditions due to external causes (4 sources) Local infection of wound; Translations: [Other injury of unspecified body region, initial encounter] 06-09-2024 Episodic Other nervous system disorders (19 sources) Neuropathy of upper limb; Translations: [Unspecified mononeuropathy of unspecified upper limb] Onset: 05-21-2023 Resolved: 05-31-2024 01-22-2023 Chronic Other nervous system disorders (3 sources) Walking disability 08-24-2023 Chronic Other nervous system disorders (13 sources) Chronic pain; Translations: [Other chronic pain] Onset: 05-31-2024 Resolved: 05-31-2024 05-31-2024 Chronic Other non-epithelial cancer of skin (13 sources) 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; Translations: [Squamous cell carcinoma of skin of other parts of face] Onset: 06-01-2024 05-31-2024 Episodic Other nutritional; endocrine; and metabolic disorders (1 source) Hypomagnesemia; Translations: [HYPOMAGNESEMIA] Onset: 05-03-2021 Chronic Other nutritional; endocrine; and metabolic disorders (3 sources) Obesity 01-16-2023 Chronic Other nutritional; endocrine; and metabolic disorders (16 sources) Severe obesity; Translations: [Morbid (severe) obesity due to excess calories] Onset: 08-03-2020 Resolved: 05-31-2024 05-27-2023 Chronic Comment on above: Noted in 05/21/2023 U T page 1 note, added per outpatient [facility] policy. Other nutritional; endocrine; and metabolic disorders (1 source) Body mass index 30+ - obesity 02-15-2025 Chronic Other skin disorders (2 sources) Lesion of skin of face; Translations: [Disorder of the skin and subcutaneous tissue, unspecified] 04-19-2024 Episodic Other skin disorders (15 sources) Mass of lower limb; Translations: [Localized swelling, mass and lump, unspecified lower limb] Onset: 04-15-2024 Resolved: 05-31-2024 02-15-2024 Episodic Other skin disorders (6 sources) Seborrheic keratosis; Translations: [Other seborrheic keratosis] 05-03-2024 Episodic Other skin disorders (6 sources) Actinic keratosis; Translations: [Actinic keratosis] 05-03-2024 Episodic Other skin disorders (2 sources) Lentigo simplex; Translations: [Other melanin hyperpigmentation] 08-04-2024 Episodic Other upper respiratory infections (13 sources) Chronic sinusitis; Translations: [Chronic sinusitis, unspecified] Onset: 07-02-2023 Resolved: 05-31-2024 05-31-2024 Chronic Pulmonary heart disease (16 sources) Pulmonary hypertension; Translations: [Pulmonary hypertension, unspecified] Onset: 07-02-2023 Resolved: 05-31-2024 05-27-2023 Chronic Comment on above: Noted in 05/21/2023 U T page 1, added per outpatient [facility]I policy. Residual codes; unclassified (16 sources) Obstructive sleep apnea syndrome; Translations: [Obstructive sleep apnea (adult) (pediatric)] Onset: 04-15-2024 Resolved: 05-31-2024 10-16-2023 Chronic Residual codes; unclassified (5 sources) Localized edema; Translations: [LOCALIZED EDEMA] Onset: 02-07-2022 Episodic Respiratory failure; insufficiency; arrest (adult) (16 sources) Chronic hypoxemic respiratory failure; Translations: [Chronic respiratory failure with hypoxia] Onset: 04-15-2024 Resolved: 05-31-2024 10-19-2023 Chronic Screening and history of mental health and substance abuse codes (20 sources) Ex-smoker; Translations: [Personal history of nicotine dependence] Onset: 05-28-2021 Resolved: 05-31-2024 05-23-2019 Episodic Spondylosis; intervertebral disc disorders; other back problems (1 source) Backache 02-15-2025 Episodic Thyroid disorders (20 sources) Hypothyroidism; Translations: [Hypothyroidism, unspecified] Onset: 11-23-2018 Resolved: 05-31-2024 02-24-2019 Chronic Unclassified (1 source) CONTACT W/AND (SUSP) EXPOS COVID-19; Translations: [CONTACT W/AND (SUSP) EXPOS COVID-19] Onset: 05-28-2021 Unclassified (2 sources) Asymptomatic microscopic hematuria 04-22-2024 Past or Other Problems Problem Classification Problem Date Documented Date Episodic/Chronic Acute cerebrovascular disease (20 sources) Cerebrovascular accident; Translations: [Cerebral infarction, unspecified] Onset: 08-03-2020 Resolved: 05-31-2024 05-31-2024 Chronic Administrative/social admission (13 sources) Walking disability; Translations: [Other reduced mobility] Onset: 09-09-2023 Resolved: 05-31-2024 05-31-2024 Episodic Aspiration pneumonitis; food/vomitus (1 source) Pneumonitis due to inhalation of food and vomit; Translations: [PNEUMONITIS D/T INHAL FOOD AND VOMIT] Onset: 09-11-2021 Episodic Asthma (13 sources) Uncomplicated moderate persistent asthma; Translations: [Moderate persistent asthma, uncomplicated] Onset: 05-31-2024 Resolved: 05-31-2024 05-31-2024 Chronic Calculus of urinary tract (17 sources) Kidney stone; Translations: [Calculus of kidney] Onset: 05-21-2023 Resolved: 05-31-2024 06-07-2019 Episodic Cancer of prostate (18 sources) Malignant tumor of prostate; Translations: [Malignant neoplasm of prostate] Onset: 01-07-2022 Resolved: 05-31-2024 01-05-2020 Chronic Deficiency and other anemia (5 sources) Anemia, [...] urinary stream] Onset: 11-19-2021 Resolved: 05-31-2024 Episodic Immunizations and screening for infectious disease (4 sources) Encounter for immunization; Translations: [ENCOUNTER FOR IMMUNIZATION] Onset: 06-25-2021 Episodic Lung disease due to external agents (13 sources) 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; Translations: [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] Onset: 07-02-2023 Resolved: 05-31-2024 05-31-2024 Chronic Malaise and fatigue (1 source) Other fatigue; Translations: [OTHER FATIGUE] Onset: 06-14-2021 Episodic Non-Hodgkin`s lymphoma (20 sources) Malignant lymphoma; Translations: [Diffuse non-Hodgkin's lymphoma, large cell (clinical)] Onset: 02-21-2013 Resolved: 05-31-2024 02-24-2019 Chronic Other aftercare (1 source) 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; Translations: [SENIOR CARE CURRENT USE OF ASPIRIN] Onset: 05-28-2021 Episodic Other aftercare (1 source) 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; Translations: [OTH CHEMIST BIOLOGICAL CURRENT DRUG THERAPY] Onset: 05-28-2021 Episodic Other bone disease and musculoskeletal deformities (4 sources) Osteolysis, unspecified site; Translations: [OSTEOLYSIS UNSPECIFIED SITE] Onset: 09-10-2021 Episodic Other circulatory disease (7 sources) Personal history of transient ischemic attack (TIA), and cerebral infarction without residual deficits; Translations: [PERS HX TIA AND CI NO RESID DEFICIT] Onset: 09-06-2021 Episodic Other circulatory disease (13 sources) History of cerebrovascular accident; Translations: [Personal history of transient ischemic attack (TIA), and cerebral infarction without residual deficits] Onset: 05-23-2022 Resolved: 05-31-2024 05-31-2024 Episodic Other connective tissue disease (1 source) Muscle weakness (generalized); Translations: [MUSCLE WEAKNESS GENERALIZED] Onset: 05-28-2021 Episodic Other fractures (13 sources) Compression fracture of thoracic spine; Translations: [Wedge compression fracture of unspecified thoracic vertebra, subsequent encounter for fracture with routine healing] Onset: 05-31-2024 Resolved: 05-31-2024 05-31-2024 Episodic Other lower respiratory disease (6 sources) Other forms of dyspnea; Translations: [OTHER FORMS OF DYSPNEA] Onset: 04-16-2022 Episodic Other lower respiratory disease (3 sources) Shortness of breath; Translations: [SHORTNESS OF BREATH] Onset: 05-15-2021 Episodic Other lower respiratory disease (1 source) Hypoxemia; Translations: [HYPOXEMIA] Onset: 05-28-2021 Episodic Other lower respiratory disease (13 sources) Cough; Translations: [Cough] Onset: 07-17-2021 Resolved: 05-31-2024 05-31-2024 Episodic Other lower respiratory disease (13 sources) Dyspnea; Translations: [Dyspnea, unspecified] Onset: 07-17-2021 Resolved: 05-31-2024 05-31-2024 Episodic Other lower respiratory disease (13 sources) Hypoxia; Translations: [Hypoxemia] Onset: 11-23-2018 Resolved: 05-31-2024 05-31-2024 Episodic Other lower respiratory disease (13 sources) Wheezing; Translations: [Wheezing] Onset: 07-02-2023 Resolved: 05-31-2024 05-31-2024 Episodic Other nutritional; endocrine; and metabolic disorders (15 sources) Obesity caused by energy imbalance; Translations: [Other obesity due to excess calories] Onset: 05-31-2024 Resolved: 05-31-2024 10-16-2023 Chronic Other screening for suspected conditions (not mental disorders or infectious disease) (13 sources) Computed tomography result abnormal; Translations: [Abnormal findings on diagnostic imaging of other specified body structures] Onset: 07-02-2023 Resolved: 05-31-2024 05-31-2024 Chronic Other screening for suspected conditions (not mental disorders or infectious disease) (19 sources) Raised prostate specific antigen; Translations: [Abnormal findings on diagnostic imaging of heart and coronary circulation] Onset: 05-28-2021 Resolved: 05-31-2024 05-23-2019 Episodic Other upper respiratory disease (16 sources) Nasal congestion; Translations: [Nasal congestion] Onset: 05-21-2023 Resolved: 05-31-2024 01-22-2023 Episodic Pneumonia (except that caused by tuberculosis or sexually transmitted disease) (17 sources) Pneumonia, unspecified organism; Translations: [Recurrent pneumonia] Onset: 07-17-2021 Resolved: 05-31-2024 Episodic Residual codes; unclassified (13 sources) Bilateral lower limb edema; Translations: [Localized edema] Onset: 08-06-2022 Resolved: 05-31-2024 05-31-2024 Episodic Residual codes; unclassified (13 sources) Bilateral upper arm edema; Translations: [Localized edema] Onset: 07-02-2023 Resolved: 05-31-2024 05-31-2024 Episodic Results Test Name Value Interpretation Reference Range Facility Reminderson 02-23-2025 Reminders Reminders From: Marlys Carcamo To: B - Clinical; Sent: 02/20/2025 17:37:17 EDT Show up: 02/20/2025 17:36:00 EDT Subject: Ambulatory Reminder Due Date/Time: 02/21/2025 17:35:00 EDT His TSh is elevated. I need to adjust his dose of synthroid. will need to recheck that lab in 6-8 weeks. Also his HGBA1C (diabetes screen) results is 6. this is considered pre diabetes. he should make dietary changes. decrease foods and drinks with high sugar. also limit breads, pastas, starches. we will recheck that lab in 3 months. schedule both lab draws as nurse visits please Results: Date Result Name Ind Value Ref Range 02/16/2025 11:18 Glucose Lvl 104 mg/dL (55 - 199) 02/16/2025 11:18 BUN 20 mg/dL (5 - 21) 02/16/2025 11:18 Creatinine 1.2 mg/dL (0.5 - 1.3) 02/16/2025 11:18 eGFR 62 mL/min/1.73 m2 (>=59 - ) 02/16/2025 11:18 BUN/Creat Ratio 17 (10 - 20) 02/16/2025 11:18 Sodium Lvl 137 mmol/L (135 - 145) 02/16/2025 11:18 Potassium Lvl 4.2 mmol/L (3.5 - 5.3) 02/16/2025 11:18 Chloride 104 mmol/L (101 - 111) 02/16/2025 11:18 CO2 26 mmol/L (21 - 31) 02/16/2025 11:18 AGAP 11 mEq/L (6 - 16) 02/16/2025 11:18 Calcium Lvl (L) 8.8 mg/dL (8.9 - 11.1) 02/16/2025 11:18 Alk Phos 81 Int._Unit/L (21 - 98) 02/16/2025 11:18 ALT 8 Int._Unit/L (6 - 46) 02/16/2025 11:18 AST 11 Int._Unit/L (5 - 43) 02/16/2025 11:18 Total Protein 6.4 gm/dL (6.0 - 7.8) 02/16/2025 11:18 Albumin Lvl 3.8 gm/dL (3.3 - 5.0) 02/16/2025 11:18 Globulin 2.6 gm/dL (1.4 - 4.0) 02/16/2025 11:18 A/G Ratio 1.5 (1.1 - 2.2) 02/16/2025 11:18 Bili Total 0.5 mg/dL (0.0 - 1.1) 02/16/2025 11:18 Hgb A1C % (H) 6.0 % ( - <=5.9) 02/16/2025 11:18 Chol 166 mg/dL (120 - 200) 02/16/2025 11:18 Trig 119 mg/dL ( - <=149) 02/16/2025 11:18 HDL 35 mg/dL 02/16/2025 11:18 LDL Direct 113 mg/dL ( - <=129) 02/16/2025 11:18 VLDL 24 mg/dL (7 - 40) 02/16/2025 11:18 TSH (H) 9.04 mcIU/mL (0.34 - 5.60) 02/16/2025 11:18 HCV Ab Non Reactive (Non Reactive - ) 02/16/2025 11:18 Interpretation: Comment LM on VM requesting pt call back for below results. pt notified. Send rx to [facility] From: Rose Marie Sauceda ([facility] - Clinical) To: Marlys Carcamo; Sent: 02/23/2025 14:49:36 EDT Show up: 02/23/2025 14:49:00 EDT Subject: RE: Ambulatory Reminder Normal [facility] .Interpretation:on Interpretation: Comment Invalid Interpretation Code [facility] Comment on above: Result Comment: Not infected with HCV unless early or acute infection is suspected (which may be delayed in an immunocompromised individual), or other evidence exists to indicate HCV infection. Performed at: [facility] [id number] PhD Sahra Robledo Performed By: #### 2 [id number] #### [facility] [address] [place] [address] HCV Antibody RFX to Quant PC Mac 02-19-2025 HCV Ab Non-Reactive Invalid Interpretation Code Non Reactive [facility] Comment on above: Result Comment: Perf ormed at: [facility] [id number] PhD Sahra Robledo Performed By: #### 2 [id number] #### [facility] [address] [place] [address] CHEMISTRYOrdered By: SYSTEM SYSTEM on 02-16-2025 Albumin [Mass/Vol] 3.8 g/dL Normal 3.3 - 5.0 gm/dL Remisol Chem Albumin/Globulin [Mass ratio] 1.5 {ratio} Normal 1.1 - 2.2 Remisol Chem ALP [Catalytic activity/Vol] 81 [iU]/d Normal 21 - 98 Int._Unit/L Remisol Chem ALT No additional P-5'-P [Catalytic activity/Vol] 8 [iU]/d Normal 6 - 46 Int._Unit/L Remisol Chem Anion gap [Moles/Vol] 11 mmol/L Normal 6 - 16 mEq/L [facility] AST [Catalytic activity/Vol] 11 [iU]/d Normal 5 - 43 Int._Unit/L [facility] Bilirubin [Mass/Vol] 0.5 mg/dL Normal 0.0 - 1 .1 mg/dL [facility] Calcium [Mass/Vol] 8.8 mg/dL Low 8.9 - 11. 1 mg/dL [facility] Chloride [Moles/Vol] 104 mmol/L Normal 101 - 1 11 mmol/L [facility] Cholesterol [Mass/Vol] 166 mg/dL Normal 120 - 200 mg/dL [facility] Cholesterol in HDL [Mass/Vol] 35 mg/dL Invalid Interpretation Code [facility] Comment on above: Result Comment: '>= 60 LOW RISK' '<= 40 HIGH RISK' Cholesterol in LDL [Mass/Vol] 113 mg/dL Normal <=129mg/dL Rem[facility] Chem Cholesterol in VLDL [Mass/Vol] 24 mg/dL Normal 7 - 40 mg/dL [facility] CO2 [Moles/Vol] 26 mmol/L Normal 21 - 31 mmol/L [facility] Creatinine [Mass/Vol] 1.2 mg/dL Normal 0.5 - 1.3 mg/dL Rem[facility] Chem GFR/1.73 sq M.predicted MDRD (S/P/Bld) [Vol rate/Area] 62 mL/min/1.73 m2 Normal >=59mL/min/1 .73 m2 Rem[facility] Globulin (S) [Mass/Vol] 2.6 g/dL Normal 1.4 - 4.0 gm/dL [facility] Glucose [Mass/Vol] 104 mg/dL Normal 55 - 199 mg/dL [facility] Potassium [Moles/Vol] 4.2 mmol/L Normal 3.5 - 5.3 mmol/L Rem[facility] Protein [Mass/Vol] 6.4 g/dL Normal 6.0 - 7.8 gm/dL [facility] Sodium [Moles/Vol] 137 mmol/L Normal 135 - 145 mmol/L [facility] Triglyceride [Mass/Vol] 119 mg/dL Normal <=149mg/dL [facility] Chem TSH Qn 9.04 m[IU]/L High 0.34 - 5.60 mcIU/mL Rem[facility] Urea nitrogen [Mass/Vol] 20 mg/dL Normal 5 - 21 mg/dL Remisol Chem Urea nitrogen/Creatinine [Mass ratio] 17 mg/mg Normal 10 - 20 [facility] CHEMISTRYOrdered By: Daniela Luna on 02-16-2025 HbA1c (Bld) [Mass fraction] 6.0 % High <=5.9% [facility] [place] ChemAuto[place] CMPon 02-16-2025 Albumin [Mass/Vol] 3.8 g/dL Normal 3.3-5.0 [facility] Comment on above: Performed By: #### 2 [id number] #### [facility] [address] [place] [address] Albumin/Globulin [Mass ratio] 1.5 {ratio} Normal 1.1-2.2 [facility] Comment on above: Performed By: #### 2 [id number] #### [facility] [address] [place] [address] Alk Phos 81 Int._Unit/L Normal 21-98 [facility] Comment on above: Performed By: #### 2 [id number] #### [facility] [address] [place] [address] ALT 8 Int._Unit/L Normal 6-46 [facility] Comment on above: Performed By: #### 2 [id number] #### [facility] [address] [place] [address] Anion gap [Moles/Vol] 11 mmol/L Normal 6-16 [facility] Comment on above: Performed By: #### 2 [id number] #### [facility] [address] [place] [address] AST 11 Int._Unit/L Normal 5-43 [facility] Comment on above: Performed By: #### 2 [id number] #### [facility] [address] [place] [address] Bili Total 0.5 mg/dL Normal 0.0-1.1 [facility] Comment on above: Performed By: #### 2 [id number] #### [facility] [address] [place] [address] BUN/Creat Ratio 17 No Units Normal 10-20 [facility] Comment on above: Performed By: #### 2 [id number] #### [facility] [address] [place] [address] Calcium [Mass/Vol] 8.8 mg/dL Low 8.9-11.1 [facility] Comment on above: Performed By: #### 2 [id number] #### [facility] [address] [place] [address] Chloride [Moles/Vol] 104 mmol/L Normal 101-111 [facility] Comment on above: Performed By: #### 2 [id number] #### [facility] [address] [place] [address] CO2 [Moles/Vol] 26 mmol/L Normal 21-31 [facility] Comment on above: Performed By: #### 2 [id number] #### [facility] [address] [place] [address] Creatinine [Mass/Vol] 1.2 mg/dL Normal 0.5-1.3 [facility] Comment on above: Performed By: #### 2 [id number] #### [facility] [address] [place] [address] Globulin (S) [Mass/Vol] 2.6 g/dL Normal 1.4-4.0 [facility] Comment on above: Performed By: #### 2 [id number] #### [facility] [address] [place] [address] Glucose [Mass/Vol] 104 mg/dL Normal 55-199 [facility] Comment on above: Performed By: #### 2 [id number] #### [facility] [address] [place] [address] Potassium [Moles/Vol] 4.2 mmol/L Normal 3.5-5.3 [facility] Comment on above: Performed By: #### 2 [id number] #### [facility] [address] [place] [address] Protein [Mass/Vol] 6.4 g/dL Normal 6.0-7.8 [facility] Comment on above: Performed By: #### 2 [id number] #### [facility] [address] [place] [address] Sodium [Moles/Vol] 137 mmol/L Normal 135-145 [facility] Comment on above: Performed By: #### 2 [id number] #### [facility] [address] [place] [address] Urea nitrogen [Mass/Vol] 20 mg/dL Normal 5-21 [facility] Comment on above: Performed By: #### 2 [id number] #### [facility] [address] [place] [address] [id number] 02-16-2025 HbA1c (Bld) [Mass fraction] 6.0 % High <=5.9 [facility] Comment on above: Performed By: #### [id number] #### [facility] [address] [place] [address] Lipid Panelon 02-16-2025 Cholesterol [Mass/Vol] 166 mg/dL Normal 120-200 [facility] Comment on above: Performed By: #### 2 [id number] #### [facility] [address] [place] [address] Cholesterol in HDL [Mass/Vol] 35 mg/dL Invalid Interpretation Code [facility] Comment on above: Result Comment: '>= 60 LOW RISK' '<= 40 HIGH RISK' Performed By: #### 2 [id number] #### [facility] [address] [place] [address] Cholesterol in LDL [Mass/Vol] 113 mg/dL Normal <=129 [facility] Comment on above: Performed By: #### 2 [id number] #### [facility] [address] [place] [address] Cholesterol in VLDL [Mass/Vol] 24 mg/dL Normal 7-40 [facility] Comment on above: Performed By: #### 2 [id number] #### [facility] [address] [place] [address] Triglyceride [Mass/Vol] 119 mg/dL Normal <=149 [facility] Comment on above: Performed By: #### 2 [id number] #### [facility] [address] [place] [address] TSHon 02-16-2025 TSH Qn 9.04 m[IU]/L High 0.34-5.60 [facility] Comment on above: Performed By: #### 2 [id number] #### [facility] [address] [place] [address] eGFRon 02-16-2025 eGFR 62 mL/min/1.73 m2 Normal >=59 [facility] Comment on above: Performed By: #### 1 [id number] #### [facility] [address] [place] [address] Ambulatory Visit Summaryon 0 02-15-2025 Ambulatory Visit Summary Ambulatory Visit Summary CHIKI JUAREZ :1945 Visit Date:02/15/2025 Ambulatory Visit Instructions Your Diagnosis Encounter for Medicare annual examination with abnormal findings Pulmonary hypertension COPD with asthma Chronic diastolic heart failure Chronic hypoxic respiratory failure Chronic kidney disease, stage 3a Encounter for hepatitis C screening test for low risk patient Screening for ischemic heart disease (IHD) Diabetes mellitus screening Hyperglycemia Hypothyroid Obesity due to excess calories Your Care Team Attending Physician - Navarro VENTURA, Pito Davidson Primary Care Physician - Marlys Carcamo This Is Your Medications List Misc Prescription (Electric scooter) Misc Prescription (Lissa Macias, 5 years.) Misc Prescription (Nebulizer accessory set) Oxygen (Oxygen - for Home) albuterol (albuterol 0.083% Inh Kasie 3 mL) aspirin (aspirin 81 mg Oral EC Tab) budesonide (budesonide 0.5 mg/2 mL Inh Susp) calcium-vitamin D cetirizine (cetirizine 10 mg Tab) cyanocobalamin (Vitamin B12) furosemide (furosemide 40 mg [...] Skin cancer. Discharge Vitals Heart Rate (Peripheral) 76 Respiratory Rate 18 Blood Pressure 140/60 Height 168 cm Height 66 in Weight 98.2 kg Weight 216.494 lb BMI 34.79 What to do next Scheduled Follow-Up Appointments 2024 11:00 AM EDT With: Where: [address] [address]- Thursday 9:45 AM EDT With: MIKE VENTURA, Oni Sewell Where: [facility] [address] [place] [address]- 2025 9:30 AM EDT With: Where: [address] [address]- You Need to Complete the Following Comprehensive Metabolic Panel, Blood, Routine collect, 02/15/25, Order for future visit, Lab Collect, Other obesity due to excess calories, Print Label By Order Location HCV Antibody RFX to Quant PCR, Blood, Routine collect, 02/15/25, Order for future visit, Lab Collect, Other obesity due to excess calories, Print Label By Order Location HgbA1c, Blood, Routine collect, 02/15/25, Order for future visit, Lab Collect, Other obesity due to excess calories, Print Label By Order Location Lipid Panel, Blood, Routine collect, 02/15/25, Order for future visit, Lab Collect, Other obesity due to excess calories, Print Label By Order Location Thyroid Stimulating Hormone, Blood, Routine collect, 02/15/25, Order for future visit, Lab Collect, Other obesity due to excess calories, Print Label By Order Location Medications What How Much When Why Instructions Unchanged albuterol (albuterol 0.083% Inh Kasie 3 mL) See instructions INHALE 1 VIAL VIA NEBULIZER EVERY 4 HOURS Unchanged aspirin (aspirin 81 mg Oral EC Tab) 1 Tablets By Mouth Every day Unchanged budesonide (budesonide 0.5 mg/ 2 mL Inh Susp) See instructions USE 1 VIAL VIA NEBULIZER TWICE A DAY Unchanged calcium-vitamin D Unchanged cetirizine (cetirizine 10 mg Tab) 1 Tablets By Mouth Every day Unchanged cyanocobalamin (Vitamin B12) Unchanged furosemide (furosemide 40 mg Tab) 1 Tablets By Mouth Every day Unchanged levothyroxine (levothyroxine 100 mcg (0.1 mg) Tab) See instructions TAKE 1 TABLET BY MOUTH EVERY DAY Unchanged metoprolol (metoprolol 25 mg ER Tab) 1 Tablets By Mouth Every day Unchanged Misc Prescription (Electric scooter) See instructions Hearing loss For Debility Unchanged Misc Prescription (Handicap Placard, 5 years.) See instructions COPD with asthma Pulmonary hypertension Macrocytic anemia Cardiac pacemaker in situ Chronic hypoxic respiratory failure Hypothyroid Decreased ambulation status BMI 35.0-35.9,adult Class 1 obesity due to excess calories in adult Former smoker Handicap Placard, 5 years. Unchanged Misc Prescription (Nebulizer accessory set) See instructions Hypothyroid Prostate nodule Neuropathy, arm COPD with asthma pt to use nebulizer as prescribed for COPD Unchanged montelukast (montelukast 10 mg Tab) Unchanged Oxygen (Oxygen - for Home) 4 Liter/minute Every day Oxygen - patient states his drop tester just increased this to 4LPM Unchanged potassium chloride (potassium chloride 10 (more content not included)... Normal [facility] Ambulatory Visit Summary Ambulatory Visit Summary CHIKI JUAREZ :1945 Visit Date:02/15/2025 Ambulatory Visit Instructions Your Diagnosis Former smoker BMI 34.0-34.9,adult, Body mass index [BMI] 34.0-34.9, adult Class 1 obesity due to excess calories with body mass index (BMI) of 34.0 to 34.9 in adult Other obesity due to excess calories Your Care Team Attending Physician - Marlys Carcamo Primary Care Physician - Marlys Carcamo This Is Your Medications List Misc Prescription (Electric scooter) Misc Prescription (Handicap Placard, 5 years.) Misc Prescription (Nebulizer accessory set) Oxygen (Oxygen - for Home) albuterol (albuterol 0.083% Inh Kasie 3 mL) aspirin (aspirin 81 mg Oral EC Tab) budesonide (budesonide 0.5 mg/2 mL Inh Susp) calcium-vitamin D cetirizine (cetirizine 10 mg Tab) cyanocobalamin (Vitamin B12) furosemide (furosemide 40 mg [...] Skin cancer. Discharge Vitals Heart Rate (Peripheral) 76 Respiratory Rate 18 Blood Pressure 138/82 Height 168 cm Height 66 in Weight 98.2 kg Weight 216.494 lb BMI 34.79 What to do next Scheduled Follow-Up Appointments 2024 11:00 AM EDT With: Where: [address] [address]- Thursday 9:45 AM EDT With: MIKE VENTURA, Oni Sewell Where: [facility] [address] [place], [place] [id number]- 2025 9:30 AM EDT With: Where: [address] [address]- You Need to Complete the Following Comprehensive Metabolic Panel, Blood, Routine collect, 02/15/25, Order for future visit, Lab Collect, Other obesity due to excess calories, Print Label By Order Location HCV Antibody RFX to Quant PCR, Blood, Routine collect, 02/15/25, Order for future visit, Lab Collect, Other obesity due to excess calories, Print Label By Order Location HgbA1c, Blood, Routine collect, 02/15/25, Order for future visit, Lab Collect, Other obesity due to excess calories, Print Label By Order Location Lipid Panel, Blood, Routine collect, 02/15/25, Order for future visit, Lab Collect, Other obesity due to excess calories, Print Label By Order Location Thyroid Stimulating Hormone, Blood, Routine collect, 02/15/25, Order for future visit, Lab Collect, Other obesity due to excess calories, Print Label By Order Location Medications What How Much When Why Instructions Unchanged albuterol (albuterol 0.083% Inh Kasie 3 mL) See instructions INHALE 1 VIAL VIA NEBULIZER EVERY 4 HOURS Unchanged aspirin (aspirin 81 mg Oral EC Tab) 1 Tablets By Mouth Every day Unchanged budesonide (budesonide 0.5 mg/ 2 mL Inh Susp) See instructions USE 1 VIAL VIA NEBULIZER TWICE A DAY Unchanged calcium-vitamin D Unchanged cetirizine (cetirizine 10 mg Tab) 1 Tablets By Mouth Every day Unchanged cyanocobalamin (Vitamin B12) Unchanged furosemide (furosemide 40 mg Tab) 1 Tablets By Mouth Every day Unchanged levothyroxine (levothyroxine 100 mcg (0.1 mg) Tab) See instructions TAKE 1 TABLET BY MOUTH EVERY DAY Unchanged metoprolol (metoprolol 25 mg ER Tab) 1 Tablets By Mouth Every day Unchanged Misc Prescription (Electric scooter) See instructions Hearing loss For Debility Unchanged Misc Prescription (Handicap Placard, 5 years.) See instructions COPD with asthma Pulmonary hypertension Macrocytic anemia Cardiac pacemaker in situ Chronic hypoxic respiratory failure Hypothyroid Decreased ambulation status BMI 35.0-35.9,adult Class 1 obesity due to excess calories in adult Former smoker Handicap Placard, 5 years. Unchanged Misc Prescription (Nebulizer accessory set) See instructions Hypothyroid Prostate nodule Neuropathy, arm COPD with asthma pt to use nebulizer as prescribed for COPD Unchanged montelukast (montelukast 10 mg Tab) Unchanged Oxygen (Oxygen - for Home) 4 Liter/minute Every day Oxygen - patient states his drop tester just increased this to 4LPM Unchanged potassium chloride (potassium chloride 10 mEq Cap-ER) 1 Capsules By Mouth Every day Unchanged sodium chloride (Hyper-Flaco 3.5% inhalation solution) See instructions per neulizer BID, skip one dose with increased swelling in feet- per patient Unchan (more content not included)... Normal [facility] Family Medicine Office/Clini c Noteon 02-15-2025 Family Medicine Office/Clinic Note Family Medicine Office/Clinic Note Chief Complaint Subsequent Medicare Wellness Review of Systems PHQ Score Initial Depression Screen Score: 0 SCORE Physical Exam Vitals & Measurements HR: 76(Peripheral) RR: 18 BP: 140/60 SpO2: 90% HT: 168 cm HT: 66 in WT: 98.2 kg WT: 216.494 lb BMI: 34.79 Assessment/Plan 1. Encounter for Medicare annual examination with abnormal findings (Z00.01: Encounter for general adult medical examination with abnormal findings) Patient in office today for his Medicare Wellness Visit. A customized and personalized print out of all the current AHRQ USPSTF???s recommendations for preventative services and all current CDC recommended immunizations, relevant risk recommendations and the following patient brochures were given. Reviewed What can I expect during my Medicare preventative care visit CDC-Falls Prevention and home safety screening reviewed. Patient denies any falls in last 12 months, voices no worry about falling, exhibits no problems with sitting and standing. Pt voices understanding with keeping walk way area free of clutter to prevent tripping and/or falling. [place] Advance Directives reviewed, at home. Patient encouraged to bring in to have scanned into chart. Patient denies any problems with ADL???s and Instrumental ADL???s. Cognitive screening completed with memory and clock face drawing. Immunization Record reviewed with the patient. 2 COVID vaccines and 4 boosters have been administered. Immunization record is up to date. Allergies and medications reviewed and up to date. Patient denies concerns with taking medication as prescribed, reviewed OTC medications with patient with medication list up to date. Blood tests were reviewed: Discussed what tests need to be updated. Labs were ordered per patient requests, [place] [facility] next [place]CP visit. Colonoscopy screenings no longer performed due to age. Reviewed concerns with bladder control over past 6 months with no concerns. Reviewed pain symptoms with patient: 6/10 back pain. Reviewed all outside providers that patient follows. Last visit summary notes available in chart and/or have been requested. Follow up scheduled: Today after AWV. AWV has been scheduled: 02/15/2026. Abnormal Blood Pressure reading at today's visit: 140/60. Second reading to be done with pcp appointment after AWV. Abnormal Pulse Ox reading at today's visit: 90. Second reading to be done with pcp appointment after AWV. Medicare provides yearly screening for alcohol and depression concerns. This is completed during our Medicare wellness visit for those who do not have a current diagnosis of depression or concerns with alcohol use. I spent a total of( 12) minutes on this date of service which included preparing to see the patient, face to face patient care, completing clinical documentation, obtaining and/or reviewing separately obtained history, counseling and educating the patient with handouts. Explanations were provided with reviewing questionnaires. AUDIT risk assessment screening completed, risk score(1) with patient denying concerns with use. Completed PHQ-2 risk assessment for depression with risk score(0), negative findings. Patient has been reminded to notify the provider if there would be a change or concerns with symptoms with fear, unable to sleep, worrying too much or feeling down and/or sad with lost of interest with daily activities. Will continue to monitor with screening yearly during Medicare wellness visits. 2. Pulmonary hypertension (I27.20: Pulmonary hypertension, unspecified) Patient is taking metoprolol daily as directed. Does not monitor BP pressure at home. HTN stoplight reviewed with BP goal to be <140/90. Reviewed different factors that can alter blood pressure readings. Education handout provided with s/s to monitor for and report to provider. Patient is encouraged to increase portions of fruit, vegetables, fiber and increase exercise as much as tolerable. Reviewed importance with monitoring foods high in salt content and encouraged to limit intake, if unsure encouraged to discuss with their PCP. Encouraged to eat more chicken, fish and lean white meats and limits red meats in diet. Discussed importance with keeping BP under good control to reduce CVA risk factors. Will continue to f/u with PCP and Cardiology during office visits and as needed. CMP ordered. 3. COPD with asthma (J44.9: Chronic obstructive pulmonary disease, unspecified) Patient using inhalers daily as directed with effectiveness and PRN albuterol solution for nebulizer with relief with SOB after exertion. Follows with PCP as directed. Encouraged to remain active, reviewed Pulmonary nutritional recommendations handout during visit. Will continue to monitor for changes and/or concerns with office visits. Pulse ox today was 90% on room air. Patient did not wear oxygen into office reporting that oxygen concentrator runs out very quickly on 4 liters. Patient follows pcp and pulmono (more content not included)... Normal [facility] Comment on above: Result Comment: Elec tronically Signed By: Marlys Carcamo\.br\Date and Time Signed: 02/15/25 16:49 EDT\.br\Electronically Co-Signed By: Mary Espinoza\.br\Date and Time Co-Signed: 02/15/25 11:33 EDT Family Medicine Office/Clinic Note Family Medicine Office/Clinic Note HPI Staff Chiki is a 79 year old male presenting with *Ross patient* Patient is here for follow up on Thyroid Disease. Do you have any of the following symptoms? Change in energy level? this is down Weight change? lost a little bit Heat/cold intolerance? always cold Hair/skin/nail changes? cancer removed from check and forehead 2, precancer on left ear and back of head Change in bowels? no these are the same Last TSH: TSH: 4.77 mcIU/mL (10/19/23 08:50:00) Pulmonology for COPD- ELO was 11/21/24 Oncology for CKD Stage 3- ELO 11/21/24 Is on 4 liters of Oxygen, elevated B/p for Medicare with Mary refills needed for Spiriva, and Tylenol History of Present Illness pt presents today for follow up Review of Systems PHQ Score Initial Depression Screen Score: 0 SCORE Physical Exam Vitals & Measurements HR: 76(Peripheral) RR: 18 BP: 138/82 SpO2: 94% HT: 66 in HT: 168 cm WT: 216.494 lb WT: 98.2 kg BMI: 34.79 General: alert, no acute distress ENMT: oral mucosa moist, no pharyngeal erythema or exudate Cardiovascular: regular rate and rhythm, normal peripheral perfusion Respiratory: Lungs CTA, respirations non labored Extremities: no deformity, no trauma Neurological: oriented x 4, LOC appropriate for age, CN II-XII intact, motor strength equal & normal bilaterally, speech normal Assessment/Plan 1. COPD with asthma (J44.9: Chronic obstructive pulmonary disease, unspecified) needs refill on Spiriva. sees Dr. Ferro and a drop tester in [place] as well. on 4 Liter O2. annual labs ordered. he has not had any water today so he will return for nurse visit. RTC 3 months Ordered: E&M of Est. Patient Low 20-29 Min 51489 2. Back pain (M54.9: Dorsalgia, unspecified) c/o worsening back pain. spine surgeon is not willing to do surgery due to lung condition. will send refill on T3 Ordered: E&M of Est. Patient Low 20-29 Min 42057 3. Former smoker (Z87.891: Personal history of nicotine dependence) continue not smoking Ordered: E&M of Est. Patient Low 20-29 Min 03971 4. BMI 34.0-34.9,adult, (Z68.34: Body mass index [BMI] 34.0-34.9, adult)Body mass index [BMI] 34.0-34.9, adult BMI education Ordered: E&M of Est. Patient Low 20-29 Min 39728 5. Class 1 obesity due to excess calories with body mass index (BMI) of 34.0 to 34.9 in adult (E66.811: Obesity, class 1) see above Ordered: E&M of Est. Patient Low 20-29 Min 36429 Orders: 1125F Pain severity quantified; pain present ADM OF SOC DTR G0136 Advance Care Planning discussed and documented 1123F Annual alcohol misuse screening, 15 min G0442 Annual Depression Screening 15 min G0444 Body Mass Index (BMI) documented 3008F Comprehensive Metabolic Panel Current tobacco non-user 1036F Depression Screening Negative 3352F Functional status assessed 1170F HCV Antibody RFX to Quant PCR HgbA1c Influenza immunization status assessed 1030F Lipid Panel Medicare Subsequent Visit G0439 Medication list documented in medical record 1159F Most recent diastolic blood pressure <80 mm Hg 3078F Most recent systolic blood pressure >= 140 mm Hg 3077F Patient screen for fall risk: no falls in last year or 1 fall with no injury in last year 1101F Pneumococcus immunization status assessed 1022F Review of all meds by a prescribing practitioner or clinical pharmacist documented in EHR 1160F Thyroid Stimulating Hormone Follow-up No qualifying data available Problem List/Past Medical History Ongoing Asymptomatic microscopic hematuria B12 deficiency Back pain BMI 34.0-34.9,adult BPH with urinary obstruction Cardiac pacemaker in [...] (monoclonal gammopathy of unknown significance) Neuropathy, arm JUANA (obstructive sleep apnea) Prostate nodule Pulmonary hypertension Ventral hernia Historical Severe obesity Procedure/Surgical History Cystoscopy (03/31/2023), Cardiac pacemaker (2019), Transrectal biopsy of prostate using ultrasound (US) guidance (03/10/2019), Cystourethroscopy (03/12/2010), Lymphadenectomy of sentinel lymph node (08/17/2006), Cancer of skin, Skin cancer. Medications albuterol 0.083% Inh Kasie 3 mL, See Instructions aspirin 81 mg Oral EC Tab, 81 mg= 1 tab(s), Oral, Daily budesonide 0.5 mg/2 mL Inh Susp, See Instructions calcium-vitamin D cetirizine 10 mg Tab, 10 mg= 1 tab(s), Oral, Daily Electric scooter, See Instructions furosemide 40 mg Tab, 40 mg= 1 tab(s), Oral, Daily Handicap Placard, (more content not included)... Normal [facility] Comment on above: Result Comment: Elec tronically Signed By: Marlys Carcamo\.br\Date and Time Signed: 02/15/25 11:36 EDT No Panel Informationon 02-02 [facility] Ambulatory Visit Summaryon 0 11-24-2024 Ambulatory Visit Summary Ambulatory Visit Summary CHIKI JUAREZ :1945 Visit Date:11/24/2024 Ambulatory Visit Instructions Your Diagnosis Chronic diastolic heart failure Chronic hypoxic respiratory failure Chronic kidney disease, stage 3a COPD with asthma Hyperglycemia Hypothyroid Severe obesity History of B-cell lymphoma Former smoker BMI 35.0-35.9,adult Your Care Team Attending Physician - Pito Patterson MD Primary Care Physician - Pito Patterson MD This Is Your Medications List cetirizine (cetirizine 10 mg Tab) Contact prescribing physician if questions or concerns Misc Prescription (Electric scooter) Misc Prescription (Handicap Placard, 5 years.) Misc Prescription (Nebulizer accessory set) [...] Skin cancer. Discharge Vitals Heart Rate (Peripheral) 102 Respiratory Rate 22 Blood Pressure 136/84 Height 168 cm Height 66 in Weight 100.3 kg Weight 221.123 lb BMI 35.54 What to do next Scheduled Follow-Up Appointments Thursday 8:00 AM EDT With: Where: [address] [address]- Thursday 9:00 AM EDT With: Pito Patterson MD Where: [address] [phone]- Thursday 9:45 AM EDT With: Oni MCKEON MD Where: [facility] [address] [place] [address]- Medications What How Much When Why Instructions Unchanged cetirizine (cetirizine 10 mg Tab) 1 Tablets By Mouth Every day Pickup at [facility] Unchanged albuterol (albuterol 0.083% Inh Kasie 3 [...] if questions or concerns Unchanged Misc Prescription (Electric scooter) See instructions Hearing loss For Debility Contact prescribing physician if questions or concerns Unchanged Misc Prescription (Handicap Gilberto, 5 years.) See instructions COPD with asthma Pulmonary hypertension Macrocytic anemia Cardiac pacemaker in situ Chronic hypoxic respiratory failure Hypothyroid Decreased ambulation status BMI 35.0-35.9,adult Class 1 obesity due to excess calories in adult Former smoker Handicap Gilberto, 5 years. Contact prescribing physician if questions [...] Every day Oxygen - patient states his drop tester just increased this to 4LPM Contact prescribing physician if questions or concerns Unchanged potassium chloride (potassium chloride 10 mEq Cap-ER) 1 Capsules By Mouth Every day Contact prescribing physician if questions or concerns Unchanged sodium chloride (Hyper-Flaco 3.5% inhalation solution) See instructions per nirav BID, skip one dose wi (more content not included)... Normal [facility] Family Medicine Office/Clini c Noteon 11-24-2024 Family Medicine Office/Clinic Note Family Medicine Office/Clinic Note Chief Complaint 3m follow up Concerns about thyroid function and energy levels. HPI Staff 3m follow up to COPD, CHF, Kidney Disease. Last pulmonology consult in chart from 11/16/24. Zyrtec daily started @ time of ELO for nasal congestion. Patient is here for follow up on COPD: Feeling controlled on medication: Need medication refilled: Do you use O2? yes History of Present Illness The patient is a 79-year-old male presenting primarily to discuss thyroid function concerns, specifically hypothyroidism, and its effects on energy levels. He has not had recent thyroid function tests and correlates his decreased energy with potential thyroid issues. He was able to have these concerns addressed with recent lab work. The patient is also maintaining follow-ups with a drop tester for pulmonary hypertension and noted no new concerns with his condition. B-cell lymphoma is also under routine monitoring, with no new issues anticipated before a planned follow-up in six months. Significant bereavement stress is noted after the recent of his son on October 14, impacting his ability to sleep. He reports having family support during this challenging time. Additionally, there was a prescription-related issue where the patient's seasonal allergy medication, Zyrtec, was initially unavailable but has now been resolved through another pharmacy. The patient is receiving ongoing assessments from his chronic care team, with updates on oxygen therapy equipment as needed. - Recent thyroid function evaluation conducted. - Scheduled follow-up with drop tester for pulmonary hypertension. - Upcoming re-evaluation for B-cell lymphoma in six months. - Prescription of Zyrtec for seasonal allergies. - Assessment and adjustment of oxygen therapy equipment. - Support for bereavement with family assistance. Review of Systems PHQ Score Initial Depression Screen Score: 0 SCORE Physical Exam Vitals & Measurements HR: 102(Peripheral) RR: 22 BP: 136/84 SpO2: 97% HT: 66 in HT: 168 cm WT: 221.123 lb WT: 100.3 kg BMI: 35.54 General: alert, no acute distress ENMT: oral mucosa moist Cardiovascular: Regular rate and rhythm, heart rate slightly elevated, normal peripheral perfusion Respiratory: Lungs clear to auscultation, respirations non labored, oxygen saturation 97% Extremities: no deformity, no trauma Neurological: oriented x 4, level of consciousness appropriate for age, CN II-XII intact, motor strength equal & normal bilaterally, speech normal Abdomen: Soft, Non-tender, Non-distended, + Bowel sounds Assessment/Plan 1. Chronic diastolic heart failure (I50.32: Chronic diastolic (congestive) heart failure) Ordered: Body Mass Index (BMI) documented 3008F Current tobacco non-user 1036F Depression Screening Negative 3352F Discharge medications reconciled with current medications in outpatient record 1111F Influenza immunization status assessed 1030F Medication list documented in medical record 1159F Most recent diastolic blood pressure 80-89 mm Hg 3079F Patient screen for fall risk: no falls in last year or 1 fall with no injury in last year 1101F Review of all meds by a prescribing practitioner or clinical pharmacist documented in EHR 1160F Systolic BP 130-139 mm Hg (Most Recent) 3075F 2. Chronic hypoxic respiratory failure (J96.11: Chronic respiratory failure with hypoxia) Continue on 4 L per pulm. 3. Chronic kidney disease, stage 3a (N18.31: Chronic kidney disease, stage 3a) Patient just had labs with oncology. CKD labs were not done. Will see the patient back in 3 months and repeat labs at that time. 4. COPD with asthma (J44.9: Chronic obstructive pulmonary disease, unspecified) Patient continues to see pulm. 5. Hyperglycemia (R73.9: Hyperglycemia, unspecified) Will check at next visit. 6. Hypothyroid (E03.9: Hypothyroidism, unspecified) Recent thyroid testing was performed to evaluate current function and potential adjustments of treatment based on outcomes. 7. Severe obesity (E66.01: Morbid (severe) obesity due to excess calories) Diet and exercise advised 8. History of B-cell lymphoma (Z85.72: Personal history of non-Hodgkin lymphomas) Continue to see oncology. 9. Former smoker (Z87.891: Personal history of nicotine dependence) Please continue not to smoke. 10. BMI 35.0-35.9,adult (Z68.35: Body mass index [BMI] 35.0-35.9, adult) BMI education added. Orders: cetirizine, 10 mg = 1 tab(s), Oral, Daily, # 90 tab(s), Refills(s) 0, Pharmacy: [facility], 168, cm, 11/24/24 13:08:00 EDT, Height/Length Dosing, 100.3, kg, 11/24/24 13:08:00 EDT, Weight Dosing 79-year-old male with a history of hypothyroidism presenting with concerns regarding energy levels potentially due to thyroid issues. Recently evaluated thyroid function tests are pending. Pulmonary hypertension remains stable per routine drop tester follow-ups. B-cell lymphoma continues to be ma (more content not included)... Normal [facility] Comment on above: Result Comment: Elec tronically Signed By: Navarro VENTURA, Pito Davidson\.br\Date and Time Signed: 11/24/24 13:39 EDT No Panel Informationon 11-22 [facility] PROSTATE-SPECIFIC ANTIGEN DI AGNOSTICon 11-22-2024 Prostate specific Ag [Mass/Vol] 0.24 ng/mL NINF - 2.60 ng/mL [facility] Comment on above: Total PSA test metho dology used is the Electrochemiluminescence Immunoassay by [employer]. Total PSA values by differing methodologies cannot be interchanged. Prostate specific Ag [Mass/V ol]on 11-22-2024 Interpretation and review of laboratory results Normal [facility] T4/FTI/T4Uon 11-22-2024 FTI 7 ug/dL 5.3 - 10.8 ug/dL [facility] Interpretation and review of laboratory results Abnormal [facility] T4 [Mass/Vol] 6.1 ug/dL 5.5 - 10.2 ug/dL [facility] T4 uptake [Mass/Vol] 0.87 Low 0.91 - 1.19 [facility] THYROID STIMULATING HORMONEo n 11-22-2024 TSH Qn 2.01 m[IU]/L [facility] TSH Qnon 11-22-2024 Interpretation and review of laboratory results Normal [facility] CNOVSPon 11-21-2024 CNOVS Visit (SP) Office (H EMASA) -- CHIKI JUAREZ ([id number]) 1945 M Date Time Provider Department 11/21/24 3:20 PM [facility]APER During your visit today, we recorded the following information about you: Temperature Pulse Respiration Blood pressure 97.7 degrees 83/minute 24/minute 122/65 Weight 97 kg Tyler Draper MD 11/23/2024 9:37 AM Signed PATIENT NAME: Chiki Juarez DATE: 11/21/2024 PRIMARY CARE PHYSICIAN: Dr. Pito Patterson OTHER PHYSICIANS: Dr. Mayra Berg (Pulmonary [facility]), Dr. Crawley, Dr. Sousa Portions of this encounter note have been copied from my note from 06/06/2024 and has been updated where appropriate, and reflect my current medical decision making from today. 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 Herrera). INTERIM HISTORY: Since the patient's last visit here he developed a severe influenza A infection and was hospitalized at [facility]. Apparently his symptoms were severe enough that he was in the ICU. He was discharged after 4 days. Although he had not completely recovered, his 57-year-old son unexpectedly which prompted the urgent discharge. Fortunately he has since recovered, and currently feels back to baseline. Chronic shortness of breath persists, not severe. No hemoptysis or other pulmonary symptoms. Denies any bone pain or other systemic problems. MEDICATIONS: TEZSPIRE 210 mg/1.91 mL (110 mg/mL) [...] Hypothyroidism Hypoxemia Multiple myeloma (HCC) Pulmonary edema (HCC) Stroke (HCC) Thyroid disease aquired due [...] seizures or tremors PHYSICAL EXAM: Vitals: BP 122/65 Pulse 83 Temp 36.5 ?C (97.7 ?F) (Temporal) Resp 24 (more content not included)... Normal [facility] PSA SerPl-mCncon 11-21-2024 Prostate specific Ag [Mass/Vol] 0.24 ng/mL Normal <2.60 [facility] Comment on above: Order Comment: Speci men Type: BLOOD SPECIMENOrdering Facility: [facility] Address: [address] [place] [address] Result Comment: Tota l PSA test methodology used is the Electrochemiluminescence Immunoassay by [employer]. Total PSA values by differing methodologies cannot be interchanged. Performed By: #### 2 [id number] ####[facility] [id number] [place] [address] [place] T4/FTI/T4Uon 11-21-2024 FTI 7.0 ug/dL Normal 5.3-10.8 [facility] Comment on above: Order Comment: Speci men Type: BLOOD SPECIMEN [facility] Address: [address] [place] [address] Performed By: #### I FESC #### [facility] CLIA [id number] [address] [place] [address] [place] T4 [Mass/Vol] 6.1 ug/dL Normal 5.5-10.2 [facility] Comment on above: Order Comment: Speci men Type: BLOOD SPECIMEN [facility] Address: [address] [place] [address] Performed By: #### I FESC #### [facility] CLIA [id number] [address] [place] [address] [place] T4 uptake [Mass/Vol] 0.87 Low 0.91-1.19 [facility] Comment on above: Order Comment: Speci men Type: BLOOD SPECIMEN [facility] Address: [address] [place] [address] Performed By: #### I FESC #### [facility] CLIA [id number] [address] [place] [address] [place] TSH SerPl-aCncon 11-21-2024 TSH Qn 2.010 m[IU]/L Normal 0.270-4.200 [facility] Comment on above: Order Comment: Speci men Type: BLOOD SPECIMEN [facility] Address: [address] [place] [address] Performed By: #### I FESC #### [facility] CLIA [id number] [address] [place] [address] [place] CBC W Auto Differential pane l (Bld)on 11-16-2024 Anisocytosis Ql (Bld) Present [facility] Basophils (Bld) [#/Vol] 0.05 10*3/uL NINF [facility] Basophils/100 WBC (Bld) 0.9 % [facility] Differential cell count method Nom (Bld) Manual [facility] Eosinophils (Bld) [#/Vol] 0.05 10*3/uL [facility] Eosinophils/100 WBC (Bld) 0.9 % [facility] Erythrocyte distribution width (RBC) [Ratio] 16.2 % High 11.5 - 15.0 % [facility] Hematocrit (Bld) [Volume fraction] 35.7 % Low 39.0 - 51.0 % [facility] Hemoglobin (Bld) [Mass/Vol] 11.5 g/dL Low 13.0 - 17.0 g/dL [facility] Interpretation and review of laboratory results Abnormal [facility] Lymphocytes (Bld) [#/Vol] 1.14 10*3/uL [facility] Lymphocytes/100 WBC (Bld) 20.5 % [facility] MCH (RBC) [Entitic mass] 34.4 pg High 26.0 - 34.0 pg [facility] MCHC (RBC) [Mass/Vol] 32.2 g/dL 30.5 - 36.0 g/dL [facility] MCV (RBC) [Entitic vol] 106.9 fL High 80.0 - 100.0 fL [facility] [place] % 2.6 % [facility] Monocytes (Bld) [#/Vol] 1.85 10*3/uL High NINF [facility] Monocytes/100 WBC (Bld) 33.3 % [facility] Myelo % 6.8 % [facility] Neutrophils (Bld) [#/Vol] 1.94 10*3/uL [facility] Neutrophils/100 WBC (Bld) 35 % [facility] Nucleated RBC (Bld) [#/Vol] NINF [facility] Nucleated RBC/100 WBC (Bld) [Ratio] 0 % /100 WBC [facility] Ovalocytes LM Ql (Bld) Few [facility] Platelet mean volume (Bld) [Entitic vol] 10.9 fL 9.0 - 12.7 fL [facility] Platelets (Bld) [#/Vol] 186 10*3/uL [facility] Platelets Estimate (Bld) [#/Vol] Adequate [facility] Polychromasia LM Ql (Bld) Slight [facility] RBC (Bld) [#/Vol] 3.34 10*6/uL Low 4.20 - 6.0 0 m/uL [facility] Red Cell Morph Reviewed: see result s of individual morphologies [facility] WBC (Bld) [#/Vol] 5.55 10*3/uL [facility] WBC Left Shift Ql (Bld) Present [facility] This is an appended report. These results have been appended to a previously verified report. [facility] PROTEIN, TOTALon 11-16-2024 Protein [Mass/Vol] 6.8 g/dL 6.3 - 8.0 g/dL [facility] Protein [Mass/Vol]on Interpretation and review of laboratory results Normal [facility] CBC W Auto Differential pane l (Bld)on 11-15-2024 Anisocytosis Ql (Bld) Present Normal [facility] Comment on above: Order Comment: Speci men Type: BLOOD SPECIMEN [facility] Address: [address] [place] [address] [place] [id number] Performed By: #### I FESC #### [facility] CLIA [id number] [address] [place] [address] [place] Basophils (Bld) [#/Vol] 0.05 10*3/uL Normal <0.11 [facility] Comment on above: Order Comment: Speci men Type: BLOOD SPECIMEN [facility] Address: [address] [place] [address] Performed By: #### I FESC #### [facility] CLIA [id number] [address] [place] [address] [place] Basophils/100 WBC (Bld) 0.9 % Normal [facility] Comment on above: Order Comment: Speci men Type: BLOOD SPECIMEN [facility] Address: [address] [place] [address] Performed By: #### I FESC #### [facility] CLIA [id number] [address] [place] [address] [place] Differential cell count method Nom (Bld) Manual Normal [facility] Comment on above: Order Comment: Speci men Type: BLOOD SPECIMEN [facility] Address: [address] [place] [address] Performed By: #### I FESC #### [facility] CLIA [id number] [address] [place] [address] [place] Eosinophils (Bld) [#/Vol] 0.05 10*3/uL Normal <0.46 [facility] Comment on above: Order Comment: Speci men Type: BLOOD SPECIMEN [facility] Address: [address] [place] [address] Performed By: #### I FESC #### [facility] CLIA [id number] [address] [place] [address] [place] Eosinophils/100 WBC (Bld) 0.9 % Normal [facility] Comment on above: Order Comment: Speci men Type: BLOOD SPECIMEN [facility] Address: [address] [place] [address] Performed By: #### I FESC #### [facility] CLIA [id number] [address] [place] [address] [place] Erythrocyte distribution width (RBC) [Ratio] 16.2 % High 11.5-15.0 [facility] Comment on above: Order Comment: Speci men Type: BLOOD SPECIMEN [facility] Address: [address] [place] [address] Performed By: #### I FESC #### [facility] CLIA [id number] [address] [place] [address] [place] Hematocrit (Bld) [Volume fraction] 35.7 % Low 39.0-51.0 [facility] Comment on above: Order Comment: Speci men Type: BLOOD SPECIMEN [facility] Address: [address] [place] [address] Performed By: #### I FESC #### [facility] CLIA [id number] [address] [place] [address] [place] Hemoglobin (Bld) [Mass/Vol] 11.5 g/dL Low 13.0-17.0 [facility] Comment on above: Order Comment: Speci men Type: BLOOD SPECIMEN [facility] Address: [address] [place] [address] Performed By: #### I FESC #### [facility] CLIA [id number] [address] [place] [address] [place] Lymphocytes (Bld) [#/Vol] 1.14 10*3/uL Normal 1.00-4.00 [facility] Comment on above: Order Comment: Speci men Type: BLOOD SPECIMEN [facility] Address: [address] [place] [address] Performed By: #### I FESC #### [facility] CLIA [id number] [address] [place] [address] [place] Lymphocytes/100 WBC (Bld) 20.5 % Normal [facility] Comment on above: Order Comment: Speci men Type: BLOOD SPECIMEN [facility] Address: [address] [place] [address] Performed By: #### I FESC #### [facility] CLIA [id number] [address] [place] [address] [place] MCH (RBC) [Entitic mass] 34.4 pg High 26.0-34.0 [facility] Comment on above: Order Comment: Speci men Type: BLOOD SPECIMEN [facility] Address: [address] [place] [address] Performed By: #### I FESC #### [facility] CLIA [id number] [address] [place] [address] [place] MCHC (RBC) [Mass/Vol] 32.2 g/dL Normal 30.5-36.0 [facility] Comment on above: Order Comment: Speci men Type: BLOOD SPECIMEN [facility] Address: [address] [place] [address] Performed By: #### I FESC #### [facility] CLIA [id number] [address] [place] [address] [place] MCV (RBC) [Entitic vol] 106.9 fL High 80.0-100.0 [facility] Comment on above: Order Comment: Speci men Type: BLOOD SPECIMEN [facility] Address: [address] [place] [address] Performed By: #### I FESC #### [facility] CLIA [id number] [address] [place] [address] [place] Metamyelocytes/100 WBC (Bld) 2.6 % Normal [facility] Comment on above: Order Comment: Speci men Type: BLOOD SPECIMEN [facility] Address: [address] [place] [id number] Performed By: #### I FESC #### [facility] CLIA [id number] [address] [place] [address] [place] Monocytes (Bld) [#/Vol] 1.85 10*3/uL High <0.87 [facility] Comment on above: Order Comment: Speci men Type: BLOOD SPECIMEN [facility] Address: [address] [place] [address] Performed By: #### I FESC #### [facility] CLIA [id number] [address] [place] [address] [place] Monocytes/100 WBC (Bld) 33.3 % Normal [facility] Comment on above: Order Comment: Speci men Type: BLOOD SPECIMEN [facility] Address: [address] [place] [address] Performed By: #### I FESC #### [facility] CLIA [id number] [address] [place] [address] [place] MYELO% 6.8 % Normal [facility] Comment on above: Order Comment: Speci men Type: BLOOD SPECIMEN [facility] Address: [address] [place] [address] Performed By: #### I FESC #### [facility] CLIA [id number] [address] [place] [address] [place] Neutrophils (Bld) [#/Vol] 1.94 10*3/uL Normal 1.45-7.50 [facility] Comment on above: Order Comment: Speci men Type: BLOOD SPECIMEN [facility] Address: [address] [place] [address] Performed By: #### I FESC #### [facility] CLIA [id number] [address] [place] [address] [place] Neutrophils/100 WBC (Bld) 35.0 % Normal [facility] Comment on above: Order Comment: Speci men Type: BLOOD SPECIMEN [facility] Address: [address] [place] [address] Performed By: #### I FESC #### [facility] CLIA [id number] [address] [place] [address] [place] Nucleated RBC (Bld) [#/Vol] 10*3/uL Normal <0.01 [facility] Comment on above: Order Comment: Speci men Type: BLOOD SPECIMEN [facility] Address: [address] [place] [address] Performed By: #### I FESC #### [facility] CLIA [id number] [address] [place] [address] [place] Nucleated RBC/100 WBC (Bld) [Ratio] 0.0 /100 WBC Normal [facility] Comment on above: Order Comment: Speci men Type: BLOOD SPECIMEN [facility] Address: [address] [place] [address] Performed By: #### I FESC #### [facility] CLIA [id number] [address] [place] [address] [place] Ovalocytes LM Ql (Bld) Few Normal [facility] Comment on above: Order Comment: Speci men Type: BLOOD SPECIMEN [facility] Address: [address] [place] [address] Performed By: #### I FESC #### [facility] CLIA [id number] [address] [place] [address] [place] Platelet mean volume (Bld) [Entitic vol] 10.9 fL Normal 9.0-12.7 [facility] Comment on above: Order Comment: Speci men Type: BLOOD SPECIMEN [facility] Address: [address] [place] [address] Performed By: #### I FESC #### [facility] CLIA [id number] [address] [place] [address] [place] Platelets (Bld) [#/Vol] 186 10*3/uL Normal 150-400 [facility] Comment on above: Order Comment: Speci men Type: BLOOD SPECIMEN [facility] Address: [address] [place] [address] Performed By: #### I FESC #### [facility] CLIA [id number] [facility] [place] [address] [place] Platelets Estimate (Bld) [#/Vol] Adequate Normal [facility] Comment on above: Order Comment: Speci men Type: BLOOD SPECIMEN [facility] Address: [address] [place] [address] Performed By: #### I FESC #### [facility] CLIA [id number] [address] [place] [address] [place] Polychromasia LM Ql (Bld) Slight Normal [facility] Comment on above: Order Comment: Speci men Type: BLOOD SPECIMEN [facility] Address: [address] [place] [address] Performed By: #### I FESC #### [facility] CLIA [id number] [address] [place] [address] [place] RBC (Bld) [#/Vol] 3.34 10*6/uL Low 4.20-6.00 [facility] Comment on above: Order Comment: Speci men Type: BLOOD SPECIMEN [facility] Address: [address] [place] [address] Performed By: #### I FESC #### [facility] CLIA [id number] [address] [place] [address] [place] RED CELL MORPH Reviewed: see result s of individual morphologies Normal [facility] Comment on above: Order Comment: Speci men Type: BLOOD SPECIMEN [facility] Address: [address] [place] [address] Performed By: #### I FESC #### [facility] CLIA [id number] [address] [place] [address] [place] WBC (Bld) [#/Vol] 5.55 10*3/uL Normal 3.70-11.00 [facility] Comment on above: Order Comment: Speci men Type: BLOOD SPECIMEN [facility] Address: [address] [place] [address] Performed By: #### I FESC #### [facility] CLIA [id number] [address] [place] [address] [place] WBC Left Shift Ql (Bld) Present Normal [facility] Comment on above: Order Comment: Speci men Type: BLOOD SPECIMEN [facility] Address: [address] [place] [address] Performed By: #### I FESC #### [facility] CLIA [id number] [address] [place] [address] [place] [address] CHEST W IVCONon 5 CT CHEST W IVCON * * *Final Report* * * DATE OF EXAM: Nov 15 2024 3:21PM [facility] 0539 - CT CHEST W IVCON / PROCEDURE REASON: Localized enlarged lymph nodes * * * * Physician Interpretation * * * * RESULT: EXAMINATION: CHEST CT WITH CONTRAST CLINICAL HISTORY: Localized enlarged lymph nodes Technique: Spiral CT acquisition of the chest from the thoracic inlet to the upper abdomen following IV contrast. MQ: CTCWR_5 Contrast: 50 mL Omnipaque [address] Dose-Length Product: 328 mGy*cm CT Dose Reduction Employed: Automated exposure control (AEC) Comparison: PET/CT 04/29/2024, outside hospital chest CT 05/15/[address] 10/13/2016 RESULT: Lines, tubes, and devices: Left-sided cardiac device is noted. Lung parenchyma and airways: Trachea and central airways are patent. Biapical pleuroparenchymal scarring. Scattered calcified granulomas. Paramediastinal radiation fibrosis. Linear bands of scarring within the lower lobes right greater than left. Pleural space: No pleural effusion or pneumothorax. Lower neck, lymph nodes, and mediastinum: No axillary, supraclavicular, mediastinal or hilar lymphadenopathy by CT size criteria. Heart, pericardium, and thoracic vessels: The heart is normal in size. No pericardial effusion. The thoracic aorta and main pulmonary artery are normal in caliber. Atherosclerotic calcifications of the thoracic aorta and coronary arteries. Bones/Soft Tissues: T5 compression fracture with vertebral plana deformity. Upper abdomen: Visualized upper abdomen is grossly unremarkable. Parking Attendant (topogram) images: Unremarkable. IMPRESSION: No lymphadenopathy in the chest by size criteria. Transcribe Date/Time: Nov 15 2024 3:21P Dictated by: STEPHON NINA MD This examination was interpreted and the report reviewed and electronically signed by: STEPHON NINA MD on Nov 15 2024 3:45PM EST Thank you for allowing us to participate in the care of your patient. Should there be any questions regarding this interpretation, please call [phone]. If you are unable to reach us at the number above, please feel free to contact [facility] at [phone]. [id number] Normal [facility] CT Chest W contrast Shantel IMPRESSION: No lymphadenopathy in the chest by size criteria. Transcribe Date/Time: Nov 15 2024 3:21P Dictated by: STEPHON NINA MD This examination was interpreted and the report reviewed and electronically signed by: STEPHON NINA MD on Nov 15 2024 3:45PM EST Thank you for allowing us to participate in the care of your patient. Should there be any questions regarding this interpretation, please call [phone]. If you are unable to reach us at the number above, please feel free to contact [facility] at [phone]. DIVISION OF RADIOLOGY * * *Final Report* * * DATE OF EXAM: Nov 15 2024 3:21PM [facility] 0539 - CT CHEST W IVCON / PROCEDURE REASON: Localized enlarged lymph nodes * * * * Physician Interpretation * * * * RESULT: EXAMINATION: CHEST CT WITH CONTRAST CLINICAL HISTORY: Localized enlarged lymph nodes Technique: Spiral CT acquisition of the chest from the thoracic inlet to the upper abdomen following IV contrast. MQ: CTCWR_5 Contrast: 50 mL Omnipaque [address] Dose-Length Product: 328 mGy*cm CT Dose Reduction Employed: Automated exposure control (AEC) Comparison: PET/CT 04/29/2024, outside hospital chest CT 05/15/[address] 10/13/2016 RESULT: Lines, tubes, and devices: Left-sided cardiac device is noted. Lung parenchyma and airways: Trachea and central airways are patent. Biapical pleuroparenchymal scarring. Scattered calcified granulomas. Paramediastinal radiation fibrosis. Linear bands of scarring within the lower lobes right greater than left. Pleural space: No pleural effusion or pneumothorax. Lower neck, lymph nodes, and mediastinum: No axillary, supraclavicular, mediastinal or hilar lymphadenopathy by CT size criteria. Heart, pericardium, and thoracic vessels: The heart is normal in size. No pericardial effusion. The thoracic aorta and main pulmonary artery are normal in caliber. Atherosclerotic calcifications of the thoracic aorta and coronary arteries. Bones/Soft Tissues: T5 compression fracture with vertebral plana deformity. Upper abdomen: Visualized upper abdomen is grossly unremarkable. Parking Attendant (topogram) images: Unremarkable. DIVISION OF RADIOLOGY Provider, [facility] - 11/15/2024 * * *Final Report* * * DATE OF EXAM: Nov 15 2024 3:21PM [facility] 0539 - CT CHEST W IVCON / PROCEDURE REASON: Localized enlarged lymph nodes * * * * Physician Interpretation * * * * RESULT: EXAMINATION: CHEST CT WITH CONTRAST CLINICAL HISTORY: Localized enlarged lymph nodes Technique: Spiral CT acquisition of the chest from the thoracic inlet to the upper abdomen following IV contrast. MQ: CTCWR_5 Contrast: 50 mL Omnipaque [address] Dose-Length Product: 328 mGy*cm CT Dose Reduction Employed: Automated exposure control (AEC) Comparison: PET/CT 04/29/2024, outside hospital chest CT 05/15/[address] 10/13/2016 RESULT: Lines, tubes, and devices: Left-sided cardiac device is noted. Lung parenchyma and airways: Trachea and central airways are patent. Biapical pleuroparenchymal scarring. Scattered calcified granulomas. Paramediastinal radiation fibrosis. Linear bands of scarring within the lower lobes right greater than left. Pleural space: No pleural effusion or pneumothorax. Lower neck, lymph nodes, and mediastinum: No axillary, supraclavicular, mediastinal or hilar lymphadenopathy by CT size criteria. Heart, pericardium, and thoracic vessels: The heart is normal in size. No pericardial effusion. The thoracic aorta and main pulmonary artery are normal in caliber. Atherosclerotic calcifications of the thoracic aorta and coronary arteries. Bones/Soft Tissues: T5 compression fracture with vertebral plana deformity. Upper abdomen: Visualized upper abdomen is grossly unremarkable. Parking Attendant (topogram) images: Unremarkable. IMPRESSION IMPRESSION: No lymphadenopathy in the chest by size criteria. Transcribe Date/Time: Nov 15 2024 3:21P Dictated by: STEPHON NINA MD This examination was interpreted and the report reviewed and electronically signed by: STEPHON NINA MD on Nov 15 2024 3:45PM EST Thank you for allowing us to participate in the care of your patient. Should there be any questions regarding this interpretation, please call [phone]. If you are unable to reach us at the number above, please feel free to contact [facility] eRadiology at [phone]. [facility] Radiology Study observation (narrative) [facility] CT Chest W contrast IVOrdere d By: Ccf Provider on 11-15-2024 [facility] Comp Metab 2000 Pnl SerPlon 11-15-2024 Protein [Mass/Vol] 6.8 g/dL Normal 6.3-8.0 [facility] Comment on above: Order Comment: Speci jomar Type: BLOOD SPECIMEN Ordering Facility: [facility] Address: [address] [place] [address] Performed By: #### I [facility] #### [facility] CLIA [id number] [address] [place], [place] [address] [address] [place] Order Comment: Speci men Type: BLOOD SPECIMENOrdering Facility: [facility] Address: [address] [place] [address] Performed By: #### 2 885-2 ####[facility] LABCLIA [id number] [place] [id number] [facility] [place] Comprehensive metabolic 2000 panelOrdered By: Niki Lynn on 11-15-2024 Albumin [Mass/Vol] 3.8 g/dL Low 3.9 - 4.9 g/dL [facility] ALP [Catalytic activity/Vol] 83 U/L 38 - 113 U/L [facility] ALT [Catalytic activity/Vol] 9 U/L Low 10 - 54 U/L [facility] Anion gap [Moles/Vol] 12 mmol/L 8 - 15 mmol/L [facility] AST [Catalytic activity/Vol] 14 U/L 14 - 40 U/L [facility] Bilirubin [Mass/Vol] 0.4 mg/dL 0.2 - 1 .3 mg/dL [facility] Calcium [Mass/Vol] 9.3 mg/dL 8.5 - 10. 2 mg/dL [facility] Chloride [Moles/Vol] 104 mmol/L 98 - 10 7 mmol/L [facility] CO2 [Moles/Vol] 24 mmol/L 22 - 30 mmol/L [facility] Creatinine [Mass/Vol] 1.27 mg/dL High 0.73 - 1.22 mg/dL [facility] GFR/1.73 sq M.predicted among non-blacks MDRD (S/P/Bld) [Vol rate/Area] 58 mL/min/{1.73_m2} Low - PINF [facility] Comment on above: Estimated Glomerular Filtration [...] eGFR may not accurately reflect actual GFR. Glucose [Mass/Vol] 110 mg/dL High 74 - 99 mg/dL [facility] Comment on above: The [place] Diabete s Association (ADA) provides guidance for [...] Standards of Medical Care in Diabetes 2016, [place] Diabetes Association. Diabetes Care. 2016.39(Suppl 1). Interpretation and review of laboratory results Abnormal [facility] Potassium [Moles/Vol] 4 mmol/L 3.7 - 5.1 mmol/L [facility] Protein [Mass/Vol] 6.8 g/dL 6.3 - 8.0 g/dL [facility] Sodium [Moles/Vol] 140 mmol/L 136 - 144 mmol/L [facility] Urea nitrogen [Mass/Vol] 21 mg/dL 9 - 24 mg/dL [facility] Comprehensive metabolic 2000 panelon 11-15-2024 Albumin [Mass/Vol] 3.8 g/dL Low 3.9-4.9 [facility] Comment on above: Order Comment: Liliya hadley Type: BLOOD SPECIMEN Ordering Facility: [facility] Address: [address] [place] [address] Performed By: #### I [facility] #### [facility] CLIA [id number] [address] [place] [address] [place] ALP [Catalytic activity/Vol] 83 U/L Normal 38-113 [facility] Comment on above: Order Comment: Liliya hadley Type: BLOOD SPECIMEN Ordering Facility: [facility] Address: [address] [place] [address] Performed By: #### I FESC #### [facility] CLIA [id number] [address] [place] [address] [place] ALT [Catalytic activity/Vol] 9 U/L Low 10-54 [facility] Comment on above: Order Comment: Liliya hadley Type: BLOOD SPECIMEN Ordering Facility: [facility] Address: [address] [place] [address] Performed By: #### I FESC #### [facility] CLIA [id number] [address] [place] [address] [place] Anion gap [Moles/Vol] 12 mmol/L Normal 8-15 [facility] Comment on above: Order Comment: Speci men Type: BLOOD SPECIMEN Ordering Facility: [facility] Address: [address] [place] [address] Performed By: #### I FESC #### [facility] CLIA [id number] [address] [place] [address] [place] AST [Catalytic activity/Vol] 14 U/L Normal 14-40 [facility] Comment on above: Order Comment: Speci men Type: BLOOD SPECIMEN Ordering Facility: [facility] Address: [address] [place] [address] Performed By: #### I FESC #### [facility] CLIA [id number] [address] [place] [address] [place] Bilirubin [Mass/Vol] 0.4 mg/dL Normal 0.2-1.3 [facility] Comment on above: Order Comment: Speci men Type: BLOOD SPECIMEN Ordering Facility: [facility] Address: [address] [place] [address] Performed By: #### I FESC #### [facility] CLIA [id number] [address] [place] [address] [place] Calcium [Mass/Vol] 9.3 mg/dL Normal 8.5-10.2 [facility] Comment on above: Order Comment: Speci men Type: BLOOD SPECIMEN Ordering Facility: [facility] Address: [address] [place] [address] Performed By: #### I FESC #### [facility] CLIA [id number] [address] [place] [address] [place] Chloride [Moles/Vol] 104 mmol/L Normal 98-107 [facility] Comment on above: Order Comment: Speci men Type: BLOOD SPECIMEN Ordering Facility: [facility] Address: [address] [place] [address] Performed By: #### I FESC #### [facility] CLIA [id number] [address] [place] [address] [place] CO2 [Moles/Vol] 24 mmol/L Normal 22-30 [facility] Comment on above: Order Comment: Speci men Type: BLOOD SPECIMEN Ordering Facility: [facility] Address: [address] [place] [address] Performed By: #### I FESC #### [facility] CLIA [id number] [address] [place] [address] [place] Creatinine [Mass/Vol] 1.27 mg/dL High 0.73-1.22 [facility] Comment on above: Order Comment: Speci men Type: BLOOD SPECIMEN Ordering Facility: [facility] Address: [address] [place] [address] Performed By: #### I FESC #### [facility] CLIA [id number] [address] [place] [address] [place] Creatinine and Glomerular filtration rate.predicted panel (S/P/Bld) 58 mL/min/1.73m??? Low >=60 [facility] Comment on above: Order Comment: Speci men Type: BLOOD SPECIMEN Ordering Facility: [facility] Address: [address] [place] [address] Result Comment: Ary mated Glomerular Filtration Rate [...] accurately reflect actual GFR. Performed By: #### I FES[facility] #### [facility] CLIA [id number] [address] [place] [address] [place] Glucose [Mass/Vol] 110 mg/dL High 74-99 [facility] Comment on above: Order Comment: Speci men Type: BLOOD SPECIMEN Ordering Facility: [facility] Address: [address] [place] [address] Result Comment: The [place] Diabetes Association (ADA) provides guidance for cutoff [...] Standards of Medical Care in Diabetes 2016, [place] Diabetes Association. Diabetes Care. 2016.39(Suppl 1). Performed By: #### I FESC #### [facility] CLIA [id number] [address] [place] [address] [place] Potassium [Moles/Vol] 4.0 mmol/L Normal 3.7-5.1 [facility] Comment on above: Order Comment: Liliya hadley Type: BLOOD SPECIMEN Order[facility] Facility: [facility] Address: [address] [place] [address] Performed By: #### I FES[facility] #### [facility] CLIA [id number] [address] [place] [address] [place] Sodium [Moles/Vol] 140 mmol/L Normal 136-144 [facility] Comment on above: Order Comment: Liliya hadley Type: BLOOD SPECIMEN Ordering Facility: [facility] Address: [address] [place] [address] Performed By: #### I FESC #### [facility] CLIA [id number] [address] [place] [address] [place] Urea nitrogen [Mass/Vol] 21 mg/dL Normal 9-24 [facility] Comment on above: Order Comment: Liliya hadley Type: BLOOD SPECIMEN Ordering Facility: [facility] Address: [address] [place] [address] Performed By: #### I [facility] #### [facility] CLIA [id number] [address] IMMUNOFIXATION SCREEN, SERUM on 11-15-2024 MPA RESULT No M protein is identified. Normal No M protein is identified. [facility] Comment on above: Order Comment: Speci men Type: BLOOD SPECIMENOrdering Facility: [facility] Address: [address] [place] [address] Performed By: #### I FESC ####[facility] LABCLIA [id number] [address] OF [facility] STAFF REVIEW (MPA) Reviewed by Xiomara powell M.D. Normal [facility] Comment on above: Order Comment: Speci men Type: BLOOD SPECIMENOrdering Facility: [facility] Address: [address] [place] [address] Performed By: #### I FESC ####[facility] LABCLIA [id number] [place] [id number] [place] IMMUNOGLOBULINS,IGG,IGA,IGMo n 11-15-2024 IgA [Mass/Vol] 127 mg/dL Normal 70-400 [facility] Comment on above: Order Comment: Speci men Type: BLOOD SPECIMENOrdering Facility: [facility] Address: [address] [place] [address] Performed By: #### S ERIMM ####[facility] LABCLIA [id number] [address], [facility]95 [place] IgG [Mass/Vol] 1016 mg/dL Normal 700-1600 [facility] Comment on above: Order Comment: Speci men Type: BLOOD SPECIMENOrdering Facility: [facility] Address: [address] [place] [address] Performed By: #### S ERIMM ####[facility] LABIA [id number] [place] [id number] [place] IgM [Mass/Vol] 109 mg/dL Normal 40-230 [facility] Comment on above: Order Comment: Speci men Type: BLOOD SPECIMENOrdering Facility: [facility] Address: [address] [place] [address] Performed By: #### S GIANLUCA ####[facility] LABCLIA [id number] [place] [address] [place] KAPPA/ARDON,FREE,SERon 2024 Immunoglobulin light chains.kappa.free (S) [Mass/Vol] 27.0 mg/L High 3.3-19.4 [facility] Comment on above: Order Comment: Speci men Type: BLOOD SPECIMEN Order[facility] Facility: [facility] Address: [address] [place] [address] Result Comment: Rare ly, increased serum free light chains levels may not be detected or accurately quantified due to prozone phenomenon or in high viscosity samples using this immunoturbidimetric assay. Correlation with other laboratory results and clinical findings is recommended. The [place] Free Light Chain was performed using the Binding Site Optilite immunoturbidimetric method. Result obtained with different assay methods or kits cannot be used interchangeably. Performed By: #### I FESC #### [facility] CLIA [id number] [address] [place] [address] [place] Immunoglobulin light chains.kappa/Immunog lobulin light chains.lambda (S) [Mass ratio] 1.66 High 0.26-1.65 [facility] Comment on above: Order Comment: Speci men Type: BLOOD SPECIMEN Order[facility] Facility: [facility] Address: [address] [place] [address] Performed By: #### I FESC #### [facility] CLIA [id number] [address] [place] [address] [place] Immunoglobulin light chains.lambda.free [Mass/Vol] 16.3 mg/L Normal 5.7-26.3 [facility] Comment on above: Order Comment: Speci men Type: BLOOD SPECIMEN Order[facility] Facility: [facility] Address: [address] [place] [address] Result Comment: Rare ly, increased serum free [...] cannot be used interchangeably. Performed By: #### I FES #### [facility] CLIA [id number] [address] [place] [address] [place] PROTEIN ELECTROPHORESIS SERU M (P)on 11-15-2024 Albumin [Mass/Vol] 3.85 g/dL Normal 3.43-5.41 [facility] Comment on above: Order Comment: Speci men Type: BLOOD SPECIMENOrdering Facility: [facility] Address: [address] [place] [address] Performed By: #### L [id number] ####[facility] LABCLIA [id number] [place] [address] [place] Alpha 1 globulin Elph [Mass/Vol] 0.40 g/dL Normal 0.18-0.43 [facility] Comment on above: Order Comment: Speci men Type: BLOOD SPECIMENOrdering Facility: [facility] Address: [address] [place] [address] Performed By: #### L [id number] ####[facility] LABCLIA [id number] [place] [address] [place] Alpha 2 globulin Elph [Mass/Vol] 0.80 g/dL Normal 0.42-0.98 [facility] Comment on above: Order Comment: Speci men Type: BLOOD SPECIMENOrdering Facility: [facility] Address: [address] [place] [address] Performed By: #### L [id number] ####[facility] LABCLIA [id number] [place] [id number] [place] Beta globulin Elph [Mass/Vol] 0.82 g/dL Normal 0.61-1.17 [facility] Comment on above: Order Comment: Speci men Type: BLOOD SPECIMENOrdering Facility: [facility] Address: [address] [place] [address] Performed By: #### L [id number] ####[facility] LABCLIA [id number] [place] [address] [place] Gamma globulin Elph [Mass/Vol] 0.93 g/dL Normal 0.53-1.51 [facility] Comment on above: Order Comment: Speci men Type: BLOOD SPECIMENOrdering Facility: [facility] Address: [address] [place] [address] Performed By: #### L [id number] ####[facility] LABCLIA [id number] [place] [address] [place] M-PROTEIN LOCATION Normal [facility] Comment on above: Order Comment: Speci men Type: BLOOD SPECIMENOrdering Facility: [facility] Address: [address] [place] [address] Result Comment: Not Applicable. Performed By: #### L [id number] ####[facility] LABCLIA [id number] [place] [address] [place] Protein Fractions [Interp] No definitive M protein is identified on protein electrophoresis. Normal No definitive M protein is identified on protein electrophore sis. [facility] Comment on above: Order Comment: Speci men Type: BLOOD SPECIMENOrdering Facility: [facility] Address: [address] [place], [place] [address] Performed By: #### L [id number] ####[facility] LABCLIA [id number] [place] [id number] [place] Protein.monoclonal Elph [Mass/Vol] 0.00 g/dL Normal <=0.00 [facility] Comment on above: Order Comment: Speci men Type: BLOOD SPECIMENOrdering Facility: [facility] Address: [address] [place] [address] Performed By: #### L [id number] ####[facility] LABCLIA [id number] [address] SPE STAFF REVIEW Reviewed by Xiomara powell M.D. [facility] Comment on above: Order Comment: Speci men Type: BLOOD SPECIMENOrdering Facility: [facility] Address: [address] [place] [address] Performed By: #### L [id number] ####[facility] LABCLIA [id number] [place] [id number] [facility] 36on 11-07-2024 36 Regarding echo resul t from 11/04/2024: MD Mayra Wellington MA His echocardiogram shows stable findings. Follow-up as planned. Patient made aware. 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 Gloria Weinberg RN Allergies As of Date: 10/14/2024 Noted Allergy Reaction SPIRONOLACTONE 09/18/2021 14 - Other: See Comments Comments: Leg cramps, Hyperkalemia Date Reviewed: 06/06/2024 Reviewed by: Yolanda Montague MA - Fully Assessed Reason for Visit: Orders [681] Primary Visit Diagnosis:Diffuse large B-cell lymphoma, unspecified body region (HCC) [C83.30] Order(s):COMPREHENSIVE METABOLIC PANEL [SQCMP] Order #: [id number] FUTURE COMPLETE BLOOD COUNT AND DIFFERENTIAL [SQCBCDIF] Order #: [id number] FUTURE PROTEIN ELECTROPHORESIS SERUM W/INTERP [SQSEPG] Order #: [id number] FUTURE MONOCLONAL PROTEIN, SERUM (BLOOD) [SQSERMPA] Order #: [id number] FUTURE Prescriptions as of 10/14/2024 - TEZSPIRE 210 mg/1.91 mL (110 mg/mL) [...] before breakfast. Problem List As Of Date 10/14/2024 Noted Resolved Diffuse large B cell lymphoma [C83.30] 02/21/2013 B12 deficiency [E53.8] 07/13/2017 Encounter Status:Closed by ARABELLA MANDUJANO on 10/14/24 [facility] Ambulatory Visit Summaryon 0 08-25-2024 Ambulatory Visit [...] Misc Prescription (Electric scooter) Misc Prescription (Lissa Macisa, 5 years.) Misc Prescription (Nebulizer accessory set) [...] EDT With: Navarro VENTURA, Pito Davidson Where: [address] [address]- Thursday 8:00 AM EDT With: Where: [address] [id number]- Thursday 9:45 AM EDT With: MIKE VENTURA, Oni Sewell Where: [facility] [address] [place] [address]- Medications What How Much When Why Instructions [...] loss For Debility Unchanged Misc Prescription (Handicap Placsorin, 5 years.) See instructions COPD with asthma Pulmonary hypertension Macrocytic anemia Cardiac pacemaker in situ Chronic hypoxic respiratory failure Hypothyroid Decreased ambulation status BMI 35.0-35.9,adult Class 1 obesity due to excess calories in adult Former smoker Handicap Placsorin, 5 years. Unchanged Misc Prescription (Nebulizer accessory set) See instructions Hypothyroid Prostate nodule Neuropathy, arm COPD with asthma pt to use nebulizer as prescribed for COPD Unchanged montelukast (montelukast 10 mg Tab) Unchanged Oxygen (Oxygen - for Home) 4 Liter/minute Every day Oxygen - patient states his drop tester just increased this to 4LPM Unchanged potassium [...] prostate cance (more content not included)... Normal [facility] Family Medicine Office/Clini c Noteon 08-25-2024 Family [...] to trialing Zyrtec for congestion relief. The drop tester, overseeing ongoing respiratory management, is scheduled for [...] disease, unspecified) Monitor exacerbation pattern and consult drop tester regarding chronic antibiotic therapy approval. Explore potential for chronic Zyrtec use for congestion relief upon drop tester's input. 4. Chronic diastolic heart failure (I50.32: [...] obstruction Card (more content not included)... Normal [facility] Comment on above: Result Comment: Elec tronically Signed By: Navarro VENTURA, Pito Davidson\.br\Date and Time Signed: 08/25/24 12:44 EST No Panel InformationOrdered By: Malou Wynne on 08-04-2024 [facility] Ambulatory Visit Summaryon 1 09-12-2023 Ambulatory Visit Summary Ambulatory Visit Summary CHIKI JUAREZ :1945 Visit Date:07/13/2024 Ambulatory Visit Instructions Your Diagnosis Sinus complaint BMI 36.0-36.9,adult Exogenous obesity Former smoker Your Care Team Attending Physician - MARKUS CERNA CNP Primary Care Physician - Pito Patterson MD. This Is Your Medications List Misc Prescription (Electric scooter) Misc Prescription (Quinnp Gilberto, 5 years.) Misc Prescription (Nebulizer accessory set) [...] Follow-Up Appointments Thursday 1:00 PM EST With: Navarro VENTURA, Pito Davidson Where: [address] [address]- Thursday 8:00 AM EDT With: Where: [address] [id number]- Thursday 9:45 AM EDT With: MIKE VENTURA, Oni Sewell Where: [facility] [address] [place] [address]- Medications What How Much When Why Instructions [...] loss For Debility Unchanged Misc Prescription (Handicap Placsorin, 5 years.) See instructions COPD with asthma Pulmonary hypertension Macrocytic anemia Cardiac pacemaker in situ Chronic hypoxic respiratory failure Hypothyroid Decreased ambulation status BMI 35.0-35.9,adult Class 1 obesity due to excess calories in adult Former smoker Handicap Placsorin, 5 years. Unchanged Misc Prescription (Nebulizer accessory set) See instructions Hypothyroid Prostate nodule Neuropathy, arm COPD with asthma pt to use nebulizer as prescribed for COPD Unchanged montelukast (montelukast 10 mg Tab) Unchanged Oxygen (Oxygen - for Home) 4 Liter/minute Every day Oxygen - patient states his drop tester just increased this to 4LPM Unchanged potassium [...] lymphoma Histor (more content not included)... Normal [facility] Family Medicine Office/Clini c Noteon 07-13-2024 Family [...] day(s), # 6 tab(s), Refills(s) 0, Pharmacy: [facility]/pharmacy #[id number], 168, cm, 07/13/24 10:34:00 EST, Height/Length Dosing, 101.9, kg, 07/13/24 10:34:00 EST, Weight Dosing methylPREDNISolone, = 1 packet(s), Oral, As Directed, as directed on package labeling, X 6 day(s), # 21 tab(s), Refills(s) 0, Pharmacy: [facility]/pharmacy #[id number], 168, cm, 07/13/24 10:34:00 EST, Height/Length [...] No qual (more content not included)... Normal [facility] Comment on above: Result Comment: Elec tronically Signed By: MARKUS CRENA CNP.otf\Date and Time Signed: 07/13/24 10:55 EST Oswaldo 06-10-2024 LIDAN Telephone (HEMASA) -- CHIKI JUAREZ ([id number]) 1945 M Date Time Provider Department 06/10/24 VALERIE MAYES During your visit today, we recorded the following information about you: Valerie Mayes RN 06/10/2024 8:[address] Mayra Berg, [facility] called and spoke with [facility] yesterday with [...] schedule prior to return visit 11/21/24 SANTI Rojas Shea 06/10/2024 10:55 AM Signed A voicemail was left on Chiki's phone to return our call to schedule a CT for November. Shea Kolb [facility] Valerie Mayes RN 06/13/2024 9:36 AM Signed notified and transferred to [facility] to schedule CT as recommended prior to return visit with [facility]. SANTI Rojas Trisha 06/13/2024 10:38 AM Signed Patient is scheduled 11/15/24 at 1:30 PM Shea Kolb [facility] Allergies As of Date: 06/10/2024 Noted Allergy Reaction SPIRONOLACTONE 09/18/2021 14 - Other: See Comments Comments: Leg cramps, Hyperkalemia Date Reviewed: 06/06/2024 Reviewed by: Yolanda Montague MA - Fully Assessed Reason for Visit: Pet results [Other] Primary Visit Diagnosis:Localized enlarged lymph nodes [R59.0] Order(s):CT CHEST W IVCON [[id number]] Order #: [id number] FUTURE [] iv contrast (will be provided [...] line spec (more content not included)... 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 Pito Ptaterson OTHER PHYSICIANS: Dr. Mayra Berg (Pulmonary [facility]), [...] Temp 3 (more content not included)... Normal [facility] 06-01-2024 L Specimen: [id number] Received: 06/01/24 Status: GABBY Giron Num: [id number] Spec Type: Surgical Subm Dr: Connor Crawley DO Tissues: A Skin-Other than Cyst, tag, debridement or plastic repair (L CHEEK LESION) B Skin-Other than Cyst, tag, debridement or plastic repair (SCALP LESION) Procedures: HE/8, Gross/Micro L4/2, FS HE/8 Age/ Patient Sex Location Account Attending Physician Chiki Juarez 79/M [place] [id number] Connor Crawley DO SPEC NUM: [id number] RECD: 06/01/24 STATUS: GABBY GIRON NUM: [id number] MARIAN: 06/01/[address]: Connor Crawley DO ENTERED: 06/01/[address] [facility] [address]: SPEC TYPE: Surgical DEPT: S ENTERED BY: [id number] RECV BY: [id number] ORDERED: HE/8, Gross/Micro L4/2, FS HE/8 ORDERED: [...] the correct patient's name and scalp Specimen: [id number] Received: 06/01/24 Status: GABBY Giron Num: [id number] Spec Type: Surgical Subm Dr: Connor Crawley DO Tissues: A Skin-Other than Cyst, tag, debridement or plastic repair (L CHEEK LESION) B Skin-Other than Cyst, tag, debridement or plastic repair (SCALP LESION) Procedures: HE/8, Gross/Micro L4/2, FS 8 Patient: Chiki Juarez [id number] (Continued) Specimen: [id number] Received: 06/01/24 (Continued) Gross Description (Continued) Signed (signature on file) Randy Tillman MD 06/03/24 1151 Specimen: [id number] Received: 06/01/24 Status: GABBY Giron Num: [id number] Spec Type: Surgical Subm Dr: Connor Crawley DO Tissues: A Skin-Other than Cyst, tag, debridement or plastic repair (L CHEEK LESION) B Skin-Other than Cyst, tag, debridement or plastic repair (SCALP LESION) Procedures: DHARA/, Gross/Micro L4/2, FS Patient: Chiki Juarez [id number] (Continued) Specimen: [id number] Received: 06/01/24 (Continued) Gross Description (Continued) lesion and consists [...] Nichols CPT Codes 88 305 x 2 47868 x 2 Specimen: [id number] Received: 06/01/24 Status: GABBY Giron Num: [id number] Spec Type: Surgical Subm Dr: Connor Crawley,DO Tissues: A Skin-Other than Cyst, tag, debridement or plastic repair (L CHEEK L (more content not included)... Normal [facility] Provider Letteron 06-01-2024 Provider Letter Provider Letter June 01, 2024 CH[address]I [address]Z [address] [place] [phone] : 1945 Dear Kwaku, We have been trying to reach you with no success. It is important that you return our call regarding your mobility scooter upon receiving this letter. Also, at the time of your call, please provide us with your current information. Thank you for your prompt attention to this matter. Sincerely, Family Medicine [place] [phone] ext [phone] [facility] Ambulatory Visit Summaryon 1 Ambulatory Visit [...] physician if questions or concerns Misc Prescription (Lissa Macias, 5 years.) Misc [...] Follow-Up Appointments Thursday 1:00 PM EST With: Navarro VENTURA, Pito Davidson Where: [address] [address]- Thursday 8:00 AM EDT With: Where: [address] [address]- Thursday 9:45 AM EDT With: Oni MCKEON MD Where: [facility] [address] Suite [place], [place] [id number]- Medications What How Much When Why Instructions [...] Every day Oxygen - patient states his drop tester just increased this to 4LPM Contact prescribing physician if questions or concerns Unchanged potassium chloride (potassium chl (more content not included)... Normal [facility] Family Medicine Office/Clini c Noteon 05-17-2024 Family Medicine [...] flu: done @ [facility] 05/12/24 questions/concerns: saw parent coach recently has at least 2 skin cancers [...] recent assurance of stable condition from the site surveyor. Chronic kidney disease stage 3a is managed [...] 3352F Influ (more content not included)... Normal [facility] Comment on above: Result Comment: Elec tronically Signed By: Navarro VENTURA, Pito Davidson\.br\Date and Time Signed: 05/17/24 11:03 EDT Office Visiton 05-13-2024 Follow-up visit [id number] Tremaine Juarez 1945 M Date Provider Department Center 05/13/2024 DANIELLA CARDONA KRISTEN [facility] Family History Problem Relation Age of Onset Stroke Father Family Status - Relation Status Age at Father Level of Service:00183 CT OFFICE/OUTPATIENT ESTABLISHED LOW MDM 20 MIN Normal [facility] No Panel Informationon 05-03 [facility] Type of biopsy: abernathy ential Informed consent: discussed and consent obtained Informed [...] taken Amount of lidocaine used: 1.0 cc Airstone Type of biopsy: abernathy ential Informed consent: discussed and consent obtained Informed [...] taken Amount of lidocaine used: 1.0 cc Airstone Type of biopsy: abernathy ential Informed consent: discussed and consent obtained Informed [...] taken Amount of lidocaine used: 2.0 cc UpCloo Zuki [facility] Zuki GLUCOSE, BLOOD (POC)on 04-29 Glucose [Mass/Vol] 98 mg/dL 74 - 99 mg/dL [facility] Comment on above: Location:[facility], [address] [place] [address] , [place], [place], [facility] The Accu-Chek Inform II glucose meter has [...] blood gas instrument) in the above situations. [facility] NM PET/CT SKULL-THIGH SUBQon 04-29-2024 NM PET/CT SKULL-THIGH SUBQ * * *Final Report* * * DATE OF EXAM: Apr 29 2024 3:28PM NRN 0063 - [place] PET/CT SKULL-THIGH SUBQ / PROCEDURE REASON: multiple [...] designed to produce diagnostic CT scan quality. Physiologic/non-pathologic uptake in some body regions could confound or obscure some pathology. * CT Dose-Length Product (DLP): 280 mGy*cm * CT Dose Reduction Employed: Yes * Blood glucose: 98 mg/dL * Injected activity: 14.0 mCi * Uptake Time: 45 minutes * Radiopharmaceutical: G51-Iofbdywadgrohtjlxe (FDG) COMPARISON: No previous FDG PET/CT available [...] any questions regarding this interpretation, please call [phone]. If you are unable to reach us at the number above, please feel free to contact [facility] eRadiology at [phone]. [id number] Normal [facility] Urology Office/Clinic Noteon 04-22-2024 Urology Office/Clinic [...] Personal history of malignant neoplasm of prostate) Aquiles 7 (4+3) S/p EBRT 06/2019. PSA 09/23/21 [...] URL [facility] [address], [place] [address] [phone] Additional Instructions: 1 yr w/ PSA Patient [...] Cap, 300 (more content not included)... Normal [facility] Comment on above: Result Comment: Elec tronically Signed By: Oni MCKEON MD\.br\Date and Time Signed: 04/22/24 10:37 EDT\.br\Electronically Co-Signed By: Nettie Wolff\.br\Date and Time Co-Signed: 04/22/24 10:36 EDT CBC W Auto Differential pane l (Bld)on 04-20-2024 Anisocytosis Ql (Bld) Present [facility] Basophils (Bld) [#/Vol] 0.00 10*3/uL NINF [facility] Basophils/100 WBC (Bld) 0.0 % [facility] Differential cell count method Nom (Bld) Manual [facility] Eosinophils (Bld) [#/Vol] 0.00 10*3/uL [facility] Eosinophils/100 WBC (Bld) 0.0 % [facility] Erythrocyte distribution width (RBC) [Ratio] 15.2 % High 11.5 - 15.0 % [facility] Hematocrit (Bld) [Volume fraction] 37.6 % Low 39.0 - 51.0 % [facility] Hemoglobin (Bld) [Mass/Vol] 12.3 g/dL Low 13.0 - 17.0 g/dL [facility] Interpretation and review of laboratory results Abnormal [facility] Lymphocytes (Bld) [#/Vol] 0.75 10*3/uL Low [facility] Lymphocytes/100 WBC (Bld) 17.0 % [facility] MCH (RBC) [Entitic mass] 34.2 pg High 26.0 - 34.0 pg [facility] MCHC (RBC) [Mass/Vol] 32.7 g/dL 30.5 - 36.0 g/dL [facility] MCV (RBC) [Entitic vol] 104.4 fL High 80.0 - 100.0 fL [facility] [place] % 1.0 % [facility] Monocytes (Bld) [#/Vol] 1.73 10*3/uL High NINF [facility] Monocytes/100 WBC (Bld) 39.0 % [facility] Neutrophils (Bld) [#/Vol] 1.91 10*3/uL [facility] Neutrophils/100 WBC (Bld) 43.0 % [facility] Nucleated RBC (Bld) [#/Vol] NINF [facility] Nucleated RBC/100 WBC (Bld) [Ratio] 0.0 % /100 WBC [facility] Ovalocytes LM Ql (Bld) Few [facility] Platelet mean volume (Bld) [Entitic vol] 10.0 fL 9.0 - 12.7 fL [facility] Platelets (Bld) [#/Vol] 136 10*3/uL Low [facility] Platelets Estimate (Bld) [#/Vol] Adequate [facility] Polychromasia LM Ql (Bld) Slight [facility] RBC (Bld) [#/Vol] 3.60 10*6/uL Low 4.20 - 6.0 0 m/uL [facility] Red Cell Morph Reviewed: see result s of individual morphologies [facility] WBC (Bld) [#/Vol] 4.44 10*3/uL [facility] WBC Left Shift Ql (Bld) Present [facility] ANC=1.55 The followi ng results were reported as preliminary values due to instrument flagging. Interpret with caution. Final results may vary.Results requested and read back by: [email or web address] @1418 9'3'24 GAY This is an appended report. These results have been appended to a previously verified report. [facility] Basic metabolic 2000 panelon 04-19-2024 Anion gap [Moles/Vol] 15 mmol/L 8 - 15 mmol/L [facility] Calcium [Mass/Vol] 9.2 mg/dL 8.5 - 10. 2 mg/dL [facility] Comment on above: Corrected result: Pr eviously reported as 9.6 mg/dL on 04/19/2024 at 2:41 PM EDT. Chloride [Moles/Vol] 105 mmol/L 98 - 10 7 mmol/L [facility] CO2 [Moles/Vol] 25 mmol/L 22 - 30 mmol/L [facility] Comment on above: Corrected result: Pr eviously reported as 27 mmol/L on 04/19/2024 at 2:41 PM EDT. Creatinine [Mass/Vol] 1.37 mg/dL High 0.73 - 1.22 mg/dL [facility] Comment on above: Corrected result: Pr eviously reported as 1.36 mg/dL on 04/19/2024 at 2:41 PM EDT. GFR/1.73 sq M.predicted among non-blacks MDRD (S/P/Bld) [Vol rate/Area] 53 mL/min/{1.73_m2} Low - PINF [facility] Comment on above: Estimated Glomerular Filtration [...] 120 mg/dL High 74 - 99 mg/dL [facility] Comment on above: The [place] Diabete s Association (ADA) provides guidance for [...] Standards of Medical Care in Diabetes 2016, [place] Diabetes Association. Diabetes Care. 2016.39(Suppl 1). Corrected result: Previously reported as 126 mg/dL on 04/19/2024 at 2:41 PM EDT. Interpretation and review of laboratory results Abnormal [facility] Potassium [Moles/Vol] 4.4 mmol/L 3.7 - 5.1 mmol/L [facility] Sodium [Moles/Vol] 145 mmol/L High 136 - 144 mmol/L [facility] Urea nitrogen [Mass/Vol] 20 mg/dL 9 - 24 mg/dL [facility] Comment on above: Corrected result: Pr eviously reported as 21 mg/dL on 04/19/2024 at 2:41 PM EDT. [facility] Anion gap [Moles/Vol] 15 mmol/L Normal 8-15 [facility] Comment on above: Order Comment: Speci men Type: BLOOD SPECIMENOrdering Facility: [facility] Address: [address] [place] [address] Performed By: #### 2 4321-2 ####[facility] LABIA [id number] [place] [address] [place] Calcium [Mass/Vol] 9.2 mg/dL Normal 8.5-10.2 [facility] Comment on above: Order Comment: Speci men Type: BLOOD SPECIMENOrdering Facility: [facility] Address: [address] [place] [address] Result Comment: Enmanuel ected result: Previously reported as 9.6 mg/dL on 04/19/2024 at 2:41 PM EDT. Performed By: #### 2 4321-2 ####[facility] LABCLIA [id number] [place] [address] [place] Chloride [Moles/Vol] 105 mmol/L Normal 98-107 [facility] Comment on above: Order Comment: Speci men Type: BLOOD SPECIMENOrdering Facility: [facility] Address: [address] [place] [address] Performed By: #### 2 4321-2 ####[facility] LABIA [id number] [place] [address] [place] CO2 [Moles/Vol] 25 mmol/L Normal 22-30 [facility] Comment on above: Order Comment: Speci men Type: BLOOD SPECIMENOrdering Facility: [facility] Address: [address] [place] [address] Result Comment: Enmanuel ected result: Previously reported as 27 mmol/L on 04/19/2024 at 2:41 PM EDT. Performed By: #### 2 4321-2 ####[facility] LABCLIA [id number] [place] [address] [place] Creatinine [Mass/Vol] 1.37 mg/dL High 0.73-1.22 [facility] Comment on above: Order Comment: Speci men Type: BLOOD SPECIMENOrdering Facility: [facility] Address: [address] [place] [address] Result Comment: Enmanuel ected result: Previously reported as 1.36 mg/dL on 04/19/2024 at 2:41 PM EDT. Performed By: #### 2 4321-2 ####[facility] LABIA [id number] [place] [address] [place] Creatinine and Glomerular filtration rate.predicted panel (S/P/Bld) 53 mL/min/1.73m??? Low >=60 [facility] Comment on above: Order Comment: Speci men Type: BLOOD SPECIMENOrdering Facility: [facility] Address: [address] [place] [address] Result Comment: Ary mated Glomerular Filtration Rate [...] PM EDT. Performed By: #### 2 4321-2 ####[facility] LABIA [id number] [place] [address] [place] Glucose [Mass/Vol] 120 mg/dL High 74-99 [facility] Comment on above: Order Comment: Speci men Type: BLOOD SPECIMENOrdering Facility: [facility] Address: [address] [place] [address] Result Comment: The [place] Diabetes Association (ADA) provides guidance for cutoff [...] Standards of Medical Care in Diabetes 2016, [place] Diabetes Association. Diabetes Care. 2016.39(Suppl 1). Corrected result: Previously reported as 126 mg/dL on 04/19/2024 at 2:41 PM EDT. Performed By: #### 2 4321-2 ####[facility] LABIA [id number] [place] [address] [place] Potassium [Moles/Vol] 4.4 mmol/L Normal 3.7-5.1 [facility] Comment on above: Order Comment: Speci men Type: BLOOD SPECIMENOrdering Facility: [facility] Address: [address] [place] [address] Performed By: #### 2 4321-2 ####[facility] LABIA [id number] [place] [address] [place] Sodium [Moles/Vol] 145 mmol/L High 136-144 [facility] Comment on above: Order Comment: Speci men Type: BLOOD SPECIMENOrdering Facility: [facility] Address: [address] [place] [address] Performed By: #### 2 4321-2 ####[facility] LABIA [id number] [place] [address] [place] Urea nitrogen [Mass/Vol] 20 mg/dL Normal 9-24 [facility] Comment on above: Order Comment: Speci men Type: BLOOD SPECIMENOrdering Facility: [facility] Address: [address] [place] [address] Result Comment: Enmanuel ected result: Previously reported as 21 mg/dL on 04/19/2024 at 2:41 PM EDT. Performed By: #### 2 4321-2 ####[facility] LABCLIA [id number] [place] [address] [place] CBC W Auto Differential pane l (Bld)on 04-19-2024 Anisocytosis Ql (Bld) Present Normal [facility] Comment on above: Order Comment: Speci men Type: BLOOD SPECIMENOrdering Facility: [facility] Address: [address] [place] [address] Performed By: #### 5 7021-8 ####[facility] LABCLIA [id number] [address] LABCLIA [id number] [place] [address] [place] Basophils (Bld) [#/Vol] 0.00 10*3/uL Normal <0.11 [facility] Comment on above: Order Comment: Speci men Type: BLOOD SPECIMENOrdering Facility: [facility] Address: [address] [place] [address] Performed By: #### 5 7021-8 ####[facility] LABCLIA [id number] [address] LABCLIA [id number] [place] [address] [place] Basophils/100 WBC (Bld) 0.0 % Normal [facility] Comment on above: Order Comment: Speci men Type: BLOOD SPECIMENOrdering Facility: [facility] Address: [address] [place] [address] Performed By: #### 5 7021-8 ####[facility] LABCLIA [id number] [address] LABCLIA [id number] [place] [address] [place] Differential cell count method Nom (Bld) Manual Normal [facility] Comment on above: Order Comment: Speci men Type: BLOOD SPECIMENOrdering Facility: [facility] Address: [address] [place] [address] Performed By: #### 5 7021-8 ####[facility] LABCLIA [id number] [address] LABCLIA [id number] [place] [address] [place] Eosinophils (Bld) [#/Vol] 0.00 10*3/uL Normal <0.46 [facility] Comment on above: Order Comment: Speci men Type: BLOOD SPECIMENOrdering Facility: [facility] Address: [address] [place] [address] Performed By: #### 5 7021-8 ####[facility] LABCLIA [id number] [address] LABCLIA [id number] [place] [address] [place] Eosinophils/100 WBC (Bld) 0.0 % Normal [facility] Comment on above: Order Comment: Speci men Type: BLOOD SPECIMENOrdering Facility: [facility] Address: [address] [place] [address] Performed By: #### 5 7021-8 ####[facility] LABCLIA [id number] [address] LABCLIA [id number] [place] [address] [place] Erythrocyte distribution width (RBC) [Ratio] 15.2 % High 11.5-15.0 [facility] Comment on above: Order Comment: Speci men Type: BLOOD SPECIMENOrdering Facility: [facility] Address: [address] [place] [address] Performed By: #### 5 7021-8 ####[facility] LABCLIA [id number] [place] [id number] LABCLIA [id number] [place] [address] [place] Hematocrit (Bld) [Volume fraction] 37.6 % Low 39.0-51.0 [facility] Comment on above: Order Comment: Speci men Type: BLOOD SPECIMENOrdering Facility: [facility] Address: [address] [place] [address] Performed By: #### 5 7021-8 ####[facility] LABCLIA [id number] [address] LABCLIA [id number] [place] [address] [place] Hemoglobin (Bld) [Mass/Vol] 12.3 g/dL Low 13.0-17.0 [facility] Comment on above: Order Comment: Speci men Type: BLOOD SPECIMENOrdering Facility: [facility] Address: [address] [place] [address] Performed By: #### 5 7021-8 ####[facility] LABCLIA [id number] [address] LABCLIA [id number] [place] [address] [place] Lymphocytes (Bld) [#/Vol] 0.75 10*3/uL Low 1.00-4.00 [facility] Comment on above: Order Comment: Speci men Type: BLOOD SPECIMENOrdering Facility: [facility] Address: [address] [place] [address] Performed By: #### 5 7021-8 ####[facility] LABCLIA [id number] [address] LABCLIA [id number] [place] [address] [place] Lymphocytes/100 WBC (Bld) 17.0 % Normal [facility] Comment on above: Order Comment: Speci men Type: BLOOD SPECIMENOrdering Facility: [facility] Address: [address] [place] [address] Performed By: #### 5 7021-8 ####[facility] LABCLIA [id number] [address] LABCLIA [id number] [place] [address] [place] MCH (RBC) [Entitic mass] 34.2 pg High 26.0-34.0 [facility] Comment on above: Order Comment: Speci men Type: BLOOD SPECIMENOrdering Facility: [facility] Address: [address] [place] [address] Performed By: #### 5 7021-8 ####[facility] LABCLIA [id number] [address] LABCLIA [id number] [place] [address] [place] MCHC (RBC) [Mass/Vol] 32.7 g/dL Normal 30.5-36.0 [facility] Comment on above: Order Comment: Speci men Type: BLOOD SPECIMENOrdering Facility: [facility] Address: [address] [place] [address] Performed By: #### 5 7021-8 ####[facility] LABCLIA [id number] [address] LABCLIA [id number] [place] [address] [place] MCV (RBC) [Entitic vol] 104.4 fL High 80.0-100.0 [facility] Comment on above: Order Comment: Speci men Type: BLOOD SPECIMENOrdering Facility: [facility] Address: [address] [place] [address] Performed By: #### 5 7021-8 ####[facility] LABCLIA [id number] [place] [id number] LABCLIA [id number] [place] [address] [place] Metamyelocytes/100 WBC (Bld) 1.0 % Normal [facility] Comment on above: Order Comment: Speci men Type: BLOOD SPECIMENOrdering Facility: [facility] Address: [address] [place] [address] Performed By: #### 5 7021-8 ####[facility] LABCLIA [id number] [address] LABCLIA [id number] [place] [address] [place] Monocytes (Bld) [#/Vol] 1.73 10*3/uL High <0.87 [facility] Comment on above: Order Comment: Speci men Type: BLOOD SPECIMENOrdering Facility: [facility] Address: [address] [place] [address] Performed By: #### 5 7021-8 ####[facility] LABCLIA [id number] [address] LABCLIA [id number] [place] [address] [place] Monocytes/100 WBC (Bld) 39.0 % Normal [facility] Comment on above: Order Comment: Speci men Type: BLOOD SPECIMENOrdering Facility: [facility] Address: [address] [place] [address] Performed By: #### 5 7021-8 ####[facility] LABCLIA [id number] [address] LABCLIA [id number] [place] [address] [place] Neutrophils (Bld) [#/Vol] 1.91 10*3/uL Normal 1.45-7.50 [facility] Comment on above: Order Comment: Speci men Type: BLOOD SPECIMENOrdering Facility: [facility] Address: [address] [place] [address] Performed By: #### 5 7021-8 ####[facility] LABCLIA [id number] [address] LABCLIA [id number] [place] [address] [place] Neutrophils/100 WBC (Bld) 43.0 % Normal [facility] Comment on above: Order Comment: Speci men Type: BLOOD SPECIMENOrdering Facility: [facility] Address: [address] [place] [address] Performed By: #### 5 7021-8 ####[facility] LABCLIA [id number] [address] LABCLIA [id number] [place] [address] [place] Nucleated RBC (Bld) [#/Vol] 10*3/uL Normal <0.01 [facility] Comment on above: Order Comment: Speci men Type: BLOOD SPECIMENOrdering Facility: [facility] Address: [address] [place] [address] Performed By: #### 5 7021-8 ####[facility]TON[facility] LABCLIA [id number] [address] LABCLIA [id number] [place] [address] [place] Nucleated RBC/100 WBC (Bld) [Ratio] 0.0 /100 WBC Normal [facility] Comment on above: Order Comment: Speci men Type: BLOOD SPECIMENOrdering Facility: [facility] Address: [address] [place] [address] Performed By: #### 5 7021-8 ####[facility] CENTERJOSÉ ANTONIO [facility] LABCLIA [id number] [address] LABCLIA [id number] [place] [id number] [place] Ovalocytes LM Ql (Bld) Few Normal [facility] Comment on above: Order Comment: Speci men Type: BLOOD SPECIMENOrdering Facility: [facility] Address: [address] [place] [address] Performed By: #### 5 7021-8 ####[facility] LABCLIA [id number] [address] LABCLIA [id number] [place] [address] [place] Platelet mean volume (Bld) [Entitic vol] 10.0 fL Normal 9.0-12.7 [facility] Comment on above: Order Comment: Speci men Type: BLOOD SPECIMENOrdering Facility: [facility] Address: [address] [place] [address] Performed By: #### 5 7021-8 ####[facility] LABCLIA [id number] [address] LABCLIA [id number] [place] [address] [place] Platelets (Bld) [#/Vol] 136 10*3/uL Low 150-400 [facility] Comment on above: Order Comment: Speci men Type: BLOOD SPECIMENOrdering Facility: [facility] Address: [address] [place] [address] Performed By: #### 5 7021-8 ####[facility] LABCLIA [id number] [address] LABCLIA [id number] [place] [address] [place] Platelets Estimate (Bld) [#/Vol] Adequate Normal [facility] Comment on above: Order Comment: Speci men Type: BLOOD SPECIMENOrdering Facility: [facility] Address: [address] [place], [place] [address] Performed By: #### 5 7021-8 ####[facility] LABCLIA [id number] [address] LABCLIA [id number] [place] [address] [place] Polychromasia LM Ql (Bld) Slight Normal [facility] Comment on above: Order Comment: Speci men Type: BLOOD SPECIMENOrdering Facility: [facility] Address: [address] [place] [address] Performed By: #### 5 7021-8 ####[facility] LABCLIA [id number] [address] LABCLIA [id number] [place] [address] [place] RBC (Bld) [#/Vol] 3.60 10*6/uL Low 4.20-6.00 [facility] Comment on above: Order Comment: Speci men Type: BLOOD SPECIMENOrdering Facility: [facility] Address: [address] [place] [address] Performed By: #### 5 7021-8 ####[facility] LABCLIA [id number] [address] LABCLIA [id number] [place] [address] [place] RED CELL MORPH Reviewed: see result s of individual morphologies Normal [facility] Comment on above: Order Comment: Speci men Type: BLOOD SPECIMENOrdering Facility: [facility] Address: [address] [place] [address] Performed By: #### 5 7021-8 ####[facility] LABCLIA [id number] [address] LABCLIA [id number] [place] [address] [place] WBC (Bld) [#/Vol] 4.44 10*3/uL Normal 3.70-11.00 [facility] Comment on above: Order Comment: Speci men Type: BLOOD SPECIMENOrdering Facility: [facility] Address: [address] [place] [address] Performed By: #### 5 7021-8 ####[facility] LABCLIA [id number] [address] LABIA [id number] [place] [address] [place] WBC Left Shift Ql (Bld) Present Normal [facility] Comment on above: Order Comment: Speci men Type: BLOOD SPECIMENOrdering Facility: [facility] Address: [address] [place] [address] Performed By: #### 5 7021-8 ####[facility] LABCLIA [id number] [address] LABCLIA [id number] [address] [place] CNOVSPon 04-19-2024 CNOVSP Visit (SP) Office (H EMASA) -- CHIKI JUAREZ ([id number]) 1945 M Date Time Provider Department 04/19/24 [...] visit here he followed up with his drop tester at [facility] for 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 Normal [facility] CHIKI JUAREZ ([id number]) 1945 M Date Time Provider Department 04/19/24 [facility] During your visit today, we recorded the following information about you: Mechelle Allred 04/19/2024 3:08 PM Signed Please ref patient to [facility] Dermatology. Dx Skin Lesion blaise facial area. Their office to call the patient to schedule/ Rhona, Please fax records Julius, Please follow up on this appt. Jennie Ye 04/20/2024 9:34 AM Signed Rhona: Information ready for you. Su Hodges 04/20/2024 10:41 AM Signed Records faxed to [facility] Dermatology. Su Pickett 04/26/2024 10:35 AM Signed Patient is scheduled with MARY Simmons on 05/03/24 @ 11:00. Allergies As of Date: 04/19/2024 Noted Allergy Reaction SPIRONOLACTONE 09/18/2021 14 - Other: See Comments Comments: Leg cramps, Hyperkalemia Date Reviewed: 04/19/2024 Reviewed by: Jenna Vidal MA - Fully Assessed Reason for Visit: [...] 240 mcg/0.7 mL injection Fluzone High-Dose Quad 2020- (PF) 240 mcg/0.7 mL IM syringe PHARMACY [...] Status:Closed by SHERON METCALF on 04/26/24 Normal [facility] IMMUNOFIXATION SCREEN, SERUM on 04-19-2024 INTERPRETATION (MPA) Atypical restricted bands are present in the IgG and lambda regions. Consistent with IgG lambda monoclonal gammopathy. Normal [facility] Comment on above: Order Comment: Speci men Type: BLOOD SPECIMENOrdering Facility: [facility] Address: [address] [place] [address] Performed By: #### I FESC ####[facility] LABIA [id number] [address] [place] MPA RESULT M protein is present. Abnormal No M p rotein is identified. [facility] Comment on above: Order Comment: Speci men Type: BLOOD SPECIMENOrdering Facility: [facility] Address: [address] [place] [address] Performed By: #### I FESC ####[facility] LABIA [id number] [address] [place] STAFF REVIEW ([facility]) Reviewed by Alison Langford MD Normal [facility] Comment on above: Order Comment: Speci men Type: BLOOD SPECIMENOrdering Facility: [facility] Address: [address] [place] [address] Performed By: #### I FESC ####[facility] LABCLIA [id number] [place] [id number] [place] IMMUNOGLOBULINS,IGG,IGA,IGMo n 04-19-2024 IgA [Mass/Vol] 124 mg/dL Normal 70-400 [facility] Comment on above: Order Comment: Sonyi men Type: BLOOD SPECIMENOrdering Facility: [facility] Address: [address] [place] [address] Performed By: #### S ERIMM ####[facility] LABCLIA [id number] [place] [address] [place] IgG [Mass/Vol] 1147 mg/dL Normal 700-1600 [facility] Comment on above: Order Comment: Speci men Type: BLOOD SPECIMENOrdering Facility: [facility] Address: [address] [place] [address] Performed By: #### S ERIMM ####[facility] LABCLIA [id number] [place] [address] [place] IgM [Mass/Vol] 75 mg/dL Normal 40-230 [facility] Comment on above: Order Comment: Speci men Type: BLOOD SPECIMENOrdering Facility: [facility] Address: [address] [place] [address] Performed By: #### S ERIMM ####[facility] LABCLIA [id number] [place] [address] [place] KAPPA/ARDON,FREE,SERon 2023 Immunoglobulin light chains.kappa.free (S) [Mass/Vol] 34.6 mg/L High 3.3-19.4 [facility] Comment on above: Order Comment: Speci men Type: BLOOD SPECIMEN [facility] Address: [address] [place] [address] Result Comment: Rare ly, increased serum free light chains levels may not be detected or accurately quantified due to prozone phenomenon or in high viscosity samples using this immunoturbidimetric assay. Correlation with other laboratory results and clinical findings is recommended. The [place] Free Light Chain was performed using the Binding Site Optilite immunoturbidimetric method. Result obtained with different assay methods or kits cannot be used interchangeably. Performed By: #### I FESC #### [facility] LAB CLIA [id number] [address] [place] [address] [place] Immunoglobulin light chains.kappa/Immunog lobulin light chains.lambda (S) [Mass ratio] 1.90 High 0.26-1.65 [facility] Comment on above: Order Comment: Speci men Type: BLOOD SPECIMEN [facility] Address: [address] [place] [address] Performed By: #### I FESC #### [facility] CLIA [id number] [address] [place] [address] [place] Immunoglobulin light chains.lambda.free [Mass/Vol] 18.2 mg/L Normal 5.7-26.3 [facility] Comment on above: Order Comment: Speci men Type: BLOOD SPECIMEN [facility] Address: [address] [place] [address] Result Comment: Rare ly, increased serum free [...] cannot be used interchangeably. Performed By: #### I FES #### [facility] LAB CLIA [id number] [address] [place] [address] [place] PROTEIN ELECTROPHORESIS SERU M WITH CARSON (P)on 04-19-2024 Albumin [Mass/Vol] 3.82 g/dL Normal 3.43-5.41 [facility] Comment on above: Order Comment: Speci men Type: BLOOD SPECIMENOrdering Facility: [facility] Address: [address] [place] [address] Performed By: #### L [id number] ####[facility] LABCLIA [id number] [place] [address] [place] Alpha 1 globulin Elph [Mass/Vol] 0.33 g/dL Normal 0.18-0.43 [facility] Comment on above: Order Comment: Speci men Type: BLOOD SPECIMENOrdering Facility: [facility] Address: [address] [place] [address] Performed By: #### L [id number] ####[facility] LABCLIA [id number] [address] [place] Alpha 2 globulin Elph [Mass/Vol] 0.69 g/dL Normal 0.42-0.98 [facility] Comment on above: Order Comment: Speci men Type: BLOOD SPECIMENOrdering Facility: [facility] Address: [address] [place] [address] Performed By: #### L [id number] ####[facility] LABCLIA [id number] [address] [place] Beta globulin Elph [Mass/Vol] 0.80 g/dL Normal 0.61-1.17 [facility] Comment on above: Order Comment: Speci men Type: BLOOD SPECIMENOrdering Facility: [facility] Address: [address] [place] [address] Performed By: #### L [id number] ####[facility] LABIA [id number] [address] STATES OF [facility] COMMENT (SERUM PROT ELECTRO) Monoclonal Protein analysis (immunofixation) is not indicated. Normal [facility] Comment on above: Order Comment: Speci men Type: BLOOD SPECIMENOrdering Facility: [facility] Address: [address] [place] [address] Performed By: #### L [id number] ####[facility] LABCLIA [id number] [address] [place] Gamma globulin Elph [Mass/Vol] 0.95 g/dL Normal 0.53-1.51 [facility] Comment on above: Order Comment: Speci men Type: BLOOD SPECIMENOrdering Facility: [facility] Address: [address] [place] [address] Performed By: #### L [id number] ####[facility] LABCLIA [id number] [address] [place] INTERPRETATION COMMENT FOR PROTEIN ELECTROPHORESIS The atypical region is relatively poorly defined and may represent an unusual presentation of polyclonal immunoglobulins, but cannot rule out the presence of a low level M protein. If clinically indicated, monoclonal protein analysis and serum free light chain analysis are suggested to evaluate further for monoclonal gammopathy. Normal [facility] Comment on above: Order Comment: Speci men Type: BLOOD SPECIMENOrdering Facility: [facility] Address: [address] [place] [address] Performed By: #### L [id number] ####[facility] LABCLIA [id number] [place] [address] [place] M-PROTEIN LOCATION Normal [facility] Comment on above: Order Comment: Speci men Type: BLOOD SPECIMENOrdering Facility: [facility] Address: [address] [place] [address] Result Comment: Not Applicable. Performed By: #### L [id number] ####[facility] LABCLIA [id number] [place] [address] [place] Protein Fractions [Interp] An atypical region of restricted mobility is identified on protein electrophoresis. Abnormal No definitive M protein is identified on protein electrophore sis. [facility] Comment on above: Order Comment: Speci men Type: BLOOD SPECIMENOrdering Facility: [facility] Address: [address] [place] [address] Performed By: #### L [id number] ####[facility] LABCLIA [id number] [place] [id number] [place] Protein.monoclonal Elph [Mass/Vol] 0.00 g/dL Normal <=0.00 [facility] Comment on above: Order Comment: Speci men Type: BLOOD SPECIMENOrdering Facility: [facility] Address: [address] [place], [place] [address] Performed By: #### L [id number] ####[facility] LABCLIA [id number] [place] [id number] [place] SPE STAFF REVIEW Reviewed by Alison Langford MD Normal [facility] Comment on above: Order Comment: Speci men Type: BLOOD SPECIMENOrdering Facility: [facility] Address: [address] [place] [address] Performed By: #### L [id number] ####[facility] LABCLIA [id number] [place] [address] [place] Prot SerPl-mCncon 04-19-2024 Protein [Mass/Vol] 6.6 g/dL Normal 6.3-8.0 [facility] Comment on above: Order Comment: Speci men Type: BLOOD SPECIMENOrdering Facility: [facility] Address: [address] [place] [address] Performed By: #### 2 885-2 ####[facility] LABCLIA [id number] [place] [address] [place] Reminderson 03-03-2024 Reminders Reminders From: Solange Broussard To: EU - Recalls Mckeon; Sent: 06/09/2023 16:03:24 EDT Show up: 01/16/2024 16:03:00 EDT Subject: renal US Due Date/Time: 02/01/2024 16:03:00 EDT Reminder/Recall Patient needs renal US prior to February 2024 appt f/u scheduled 03/14/24 LM on pt's VM notifying him that order for ZAMZAM has been faxed to [facility]. They should be reaching out to get him scheduled. If he does not hear from them w/in 1wk he is to call our office. F/U schedule dw/PRW 03/14/24 to review results. ZAMZAM scheduled 03/03/24. F/U schedule dw/PRW 03/14/24 to review results. Completed Normal [facility] Oswaldo 02-02-2024 RAINA Telephone (DONITA) -- ALTHEACHIKI HERNANDEZ ([id number]) 1945 M Date Time Provider Department 02/02/24 [...] 02/02/2024 10:28 AM Signed Pt informed of BR message and denies any questions, needs or [...] Status:Closed by VALERIE MAYES on 02/02/24 Normal [facility] Basic metabolic 2000 panelon 01-21-2024 Anion gap [Moles/Vol] 7 mmol/L Low 8-15 [facility] Comment on above: Order Comment: Speci men Type: BLOOD SPECIMENOrdering Facility: [facility] Address: [address] [place] [address] [place] [address] Performed By: #### 2 4321-2 ####[facility] LABCLIA [id number] [place] [address] Calcium [Mass/Vol] 9.3 mg/dL Normal 8.5-10.2 [facility] Comment on above: Order Comment: Speci men Type: BLOOD SPECIMENOrdering Facility: [facility] Address: [address] [place] [address] Performed By: #### 2 4321-2 ####[facility] LABCLIA [id number] [place] [address] Chloride [Moles/Vol] 109 mmol/L High 98-107 [facility] Comment on above: Order Comment: Speci men Type: BLOOD SPECIMENOrdering Facility: [facility] Address: [address] [place] [address] Performed By: #### 2 4321-2 ####[facility] LABCLIA [id number] [place] [address] CO2 [Moles/Vol] 26 mmol/L Normal 22-30 [facility] Comment on above: Order Comment: Speci men Type: BLOOD SPECIMENOrdering Facility: [facility] Address: [address] [place] [address] Performed By: #### 2 4321-2 ####[facility] LABCLIA [id number] [place] [address] Creatinine [Mass/Vol] 1.31 mg/dL High 0.73-1.22 [facility] Comment on above: Order Comment: Speci men Type: BLOOD SPECIMENOrdering Facility: [facility] Address: [address] [place] [address] Performed By: #### 2 4321-2 ####[facility] LABCLIA [id number] [place] [address] Creatinine and Glomerular filtration rate.predicted panel (S/P/Bld) 56 mL/min/1.73m??? Low >=60 [facility] Comment on above: Order Comment: Speci men Type: BLOOD SPECIMENOrdering Facility: [facility] Address: [address] [place] [id number] Result Comment: Ary mated Glomerular Filtration Rate [...] actual GFR. Performed By: #### 2 4321-2 ####ABDIRAHMAN [facility] LABCLIA [id number] [place] [address] Glucose [Mass/Vol] 121 mg/dL High 74-99 [facility] Comment on above: Order Comment: Liliya hadley Type: BLOOD SPECIMENOrdering Facility: [facility] Address: [address] [place] [address] Result Comment: The [place] Diabetes Association (ADA) provides guidance for cutoff [...] Standards of Medical Care in Diabetes 2016, [place] Diabetes Association. Diabetes Care. 2016.39(Suppl 1). Performed By: #### 2 4321-2 ####[facility] LABCLIA [id number] [place] [address] Potassium [Moles/Vol] 4.1 mmol/L Normal 3.7-5.1 [facility] Comment on above: Order Comment: Liliya hadley Type: BLOOD SPECIMENOrdering Facility: [facility] Address: [address] [place] [id number] Performed By: #### 2 4321-2 ####[facility] LABCLIA [id number] [place] [address] Sodium [Moles/Vol] 142 mmol/L Normal 136-144 [facility] Comment on above: Order Comment: Speci men Type: BLOOD SPECIMENOrdering Facility: [facility] Address: [address] [place] [address] Performed By: #### 2 4321-2 ####[facility] LABCLIA [id number] [place] [address] Urea nitrogen [Mass/Vol] 17 mg/dL Normal 9-24 [facility] Comment on above: Order Comment: Speci men Type: BLOOD SPECIMENOrdering Facility: [facility] Address: [address] [place] [address] Performed By: #### 2 4321-2 ####[facility] LABCLIA [id number] [place] [address] CBC W Auto Differential pane l (Bld)on 01-21-2024 Basophils (Bld) [#/Vol] 10*3/uL Normal <0.11 [facility] Comment on above: Order Comment: Speci men Type: BLOOD SPECIMENOrdering Facility: [facility] Address: [address] [place] [address] Performed By: #### 5 7021-8 ####[facility] LABCLIA [id number] [place] [address] Basophils/100 WBC (Bld) 0.3 % Normal [facility] Comment on above: Order Comment: Speci men Type: BLOOD SPECIMENOrdering Facility: [facility] Address: [address] [place] [address] Performed By: #### 5 7021-8 ####[facility] LABCLIA [id number] [place] [address] Differential cell count method Nom (Bld) Auto Normal [facility] Comment on above: Order Comment: Speci men Type: BLOOD SPECIMENOrdering Facility: [facility] Address: [address] [place] [address] Performed By: #### 5 7021-8 ####[facility] LABCLIA [id number] [place] [address] Eosinophils (Bld) [#/Vol] 10*3/uL Normal <0.46 [facility] Comment on above: Order Comment: Speci men Type: BLOOD SPECIMENOrdering Facility: [facility] Address: [address] [place] [address] Performed By: #### 5 7021-8 ####[facility] LABCLIA [id number] [place] [address] Eosinophils/100 WBC (Bld) 0.3 % Normal [facility] Comment on above: Order Comment: Speci men Type: BLOOD SPECIMENOrdering Facility: [facility] Address: [address] [place] [address] Performed By: #### 5 7021-8 ####[facility] LABCLIA [id number] [place] [address] Erythrocyte distribution width (RBC) [Ratio] 14.6 % Normal 11.5-15.0 [facility] Comment on above: Order Comment: Speci men Type: BLOOD SPECIMENOrdering Facility: [facility] Address: [address] [place] [address] Performed By: #### 5 7021-8 ####[facility] LABCLIA [id number] [place] [address] Hematocrit (Bld) [Volume fraction] 35.7 % Low 39.0-51.0 [facility] Comment on above: Order Comment: Speci men Type: BLOOD SPECIMENOrdering Facility: [facility] Address: [address] [place] [address] Performed By: #### 5 7021-8 ####[facility] LABCLIA [id number] [place] [address] Hemoglobin (Bld) [Mass/Vol] 11.4 g/dL Low 13.0-17.0 [facility] Comment on above: Order Comment: Speci men Type: BLOOD SPECIMENOrdering Facility: [facility] Address: [address] [place], [place] [address] Performed By: #### 5 7021-8 ####[facility] LABCLIA [id number] [place] [address] Immature granulocytes (Bld) [#/Vol] 0.08 10*3/uL Normal <0.10 [facility] Comment on above: Order Comment: Speci men Type: BLOOD SPECIMENOrdering Facility: [facility] Address: [address] [place] [address] Performed By: #### 5 7021-8 ####[facility] LABCLIA [id number] [place] [address] Immature granulocytes/100 WBC (Bld) 2.2 % Normal [facility] Comment on above: Order Comment: Speci men Type: BLOOD SPECIMENOrdering Facility: [facility] Address: [address] [place] [address] Performed By: #### 5 7021-8 ####[facility] LABCLIA [id number] [place] [address] Lymphocytes (Bld) [#/Vol] 0.92 10*3/uL Low 1.00-4.00 [facility] Comment on above: Order Comment: Speci men Type: BLOOD SPECIMENOrdering Facility: [facility] Address: [address] [place] [address] Performed By: #### 5 7021-8 ####[facility] LABCLIA [id number] [place] [address] Lymphocytes/100 WBC (Bld) 25.2 % Normal [facility] Comment on above: Order Comment: Speci men Type: BLOOD SPECIMENOrdering Facility: [facility] Address: [address] [place] [address] Performed By: #### 5 7021-8 ####[facility] LABCLIA [id number] [place] [address] MCH (RBC) [Entitic mass] 33.8 pg Normal 26.0-34.0 [facility] Comment on above: Order Comment: Speci men Type: BLOOD SPECIMENOrdering Facility: [facility] Address: [address] [place] [address] Performed By: #### 5 7021-8 ####[facility] LABCLIA [id number] [place] [address] MCHC (RBC) [Mass/Vol] 31.9 g/dL Normal 30.5-36.0 [facility] Comment on above: Order Comment: Speci men Type: BLOOD SPECIMENOrdering Facility: [facility] Address: [address] [place] [address] Performed By: #### 5 7021-8 ####[facility] LABCLIA [id number] [place] [address] MCV (RBC) [Entitic vol] 105.9 fL High 80.0-100.0 [facility] Comment on above: Order Comment: Speci men Type: BLOOD SPECIMENOrdering Facility: [facility] Address: [address] [place] [address] Performed By: #### 5 7021-8 ####[facility] LABCLIA [id number] [place] [address] Monocytes (Bld) [#/Vol] 1.38 10*3/uL High <0.87 [facility] Comment on above: Order Comment: Speci men Type: BLOOD SPECIMENOrdering Facility: [facility] Address: [address] [place] [address] Performed By: #### 5 7021-8 ####[facility] LABCLIA [id number] [place] [address] Monocytes/100 WBC (Bld) 37.8 % Normal [facility] Comment on above: Order Comment: Speci men Type: BLOOD SPECIMENOrdering Facility: [facility] Address: [address] [place] [address] Performed By: #### 5 7021-8 ####[facility] LABCLIA [id number] [place] [address] Neutrophils (Bld) [#/Vol] 1.25 10*3/uL Low 1.45-7.50 [facility] Comment on above: Order Comment: Speci men Type: BLOOD SPECIMENOrdering Facility: [facility] Address: [address] [place] [address] Performed By: #### 5 7021-8 ####[facility] LABCLIA [id number] [place] [address] Neutrophils/100 WBC (Bld) 34.2 % Normal [facility] Comment on above: Order Comment: Speci men Type: BLOOD SPECIMENOrdering Facility: [facility] Address: [address] [place] [address] Performed By: #### 5 7021-8 ####[facility] LABCLIA [id number] [place] [address] Nucleated RBC (Bld) [#/Vol] 10*3/uL Normal <0.01 [facility] Comment on above: Order Comment: Speci men Type: BLOOD SPECIMENOrdering Facility: [facility] Address: [address] [place] [address] Performed By: #### 5 7021-8 ####[facility] LABCLIA [id number] [place] [address] Nucleated RBC/100 WBC (Bld) [Ratio] 0.0 /100 WBC Normal [facility] Comment on above: Order Comment: Speci men Type: BLOOD SPECIMENOrdering Facility: [facility] Address: [address] [place] [address] Performed By: #### 5 7021-8 ####[facility] LABCLIA [id number] [place] [address] Platelet mean volume (Bld) [Entitic vol] 9.6 fL Normal 9.0-12.7 [facility] Comment on above: Order Comment: Speci men Type: BLOOD SPECIMENOrdering Facility: [facility] Address: [address] [place] [address] Performed By: #### 5 7021-8 ####[facility] LABCLIA [id number] [place] [address] Platelets (Bld) [#/Vol] 151 10*3/uL Normal 150-400 [facility] Comment on above: Order Comment: Speci men Type: BLOOD SPECIMENOrdering Facility: [facility] Address: [address] [place] [address] Performed By: #### 5 7021-8 ####[facility] LABIA [id number] [place] [address] RBC (Bld) [#/Vol] 3.37 10*6/uL Low 4.20-6.00 [facility] Comment on above: Order Comment: Speci men Type: BLOOD SPECIMENOrdering Facility: [facility] Address: [address] [place] [address] Performed By: #### 5 7021-8 ####[facility] LABIA [id number] [place] [address] WBC (Bld) [#/Vol] 3.65 10*3/uL Low 3.70-11.00 [facility] Comment on above: Order Comment: Speci men Type: BLOOD SPECIMENOrdering Facility: [facility] Address: [address] [place] [address] Performed By: #### 5 7021-8 ####[facility] LABIA [id number] [place] [address] IMMUNOFIXATION SCREEN, SERUM on 01-21-2024 INTERPRETATION (MPA) Atypical restricted band is present in the lambda region. Consistent with lambda containing monoclonal gammopathy. IgD and IgE negative by immunofixation. [place]formed [place] Normal [facility] Comment on above: Order Comment: Speci men Type: BLOOD SPECIMEN [facility] Address: [address] [place] [address] Performed By: #### I FESC #### [facility] CLIA [id number] [address] [place] [address] [place] MPA RESULT M protein is present. Abnormal No M p rotein is identified. [facility] Comment on above: Order Comment: Speci men Type: BLOOD SPECIMEN [facility] Address: [address] [place] [address] Performed By: #### I FESC #### [facility] CLIA [id number] [address] [place] [address] OF [place] STAFF REVIEW (MPA) Reviewed by Dr. Rowan Ibarra MD [facility] Comment on above: Order Comment: Speci men Type: BLOOD SPECIMEN [facility] Address: [address] [place] [address] Performed By: #### I FESC #### [facility] CLIA [id number] [address] [place] [address] [place] IMMUNOGLOBULINS,IGG,IGA,IGMo n 01-21-2024 IgA [Mass/Vol] 110 mg/dL Normal 70-400 [facility] Comment on above: Order Comment: Speci men Type: BLOOD SPECIMEN [facility] Address: [address] [place] [address] Performed By: #### I FESC #### [facility] CLIA [id number] [address] [place] [address] [place] IgG [Mass/Vol] 1011 mg/dL Normal 700-1600 [facility] Comment on above: Order Comment: Speci men Type: BLOOD SPECIMEN [facility] Address: [address] [place] [address] Performed By: #### I FESC #### [facility] CLIA [id number] [address] [place] [address] [place] IgM [Mass/Vol] 64 mg/dL Normal 40-230 [facility] Comment on above: Order Comment: Speci men Type: BLOOD SPECIMEN [facility] Address: [address] [place] [address] Performed By: #### I FES #### [facility] CLIA [id number] [address] [place] [address] [place] KAPPA/ARDON,FREE,SERon 2023 Immunoglobulin light chains.kappa.free (S) [Mass/Vol] 30.8 mg/L High 3.3-19.4 [facility] Comment on above: Order Comment: Speci men Type: BLOOD SPECIMEN [facility] Address: [address] [place] [address] Result Comment: Rare ly, increased serum free light chains levels may not be detected or accurately quantified due to prozone phenomenon or in high viscosity samples using this immunoturbidimetric assay. Correlation with other laboratory results and clinical findings is recommended. The [place] Free Light Chain was performed using the Binding Site Optilite immunoturbidimetric method. Result obtained with different assay methods or kits cannot be used interchangeably. Performed By: #### K LFRS #### [facility] CLIA [id number] [address] [place] [address] [place] Immunoglobulin light chains.kappa/Immunog lobulin light chains.lambda (S) [Mass ratio] 1.77 High 0.26-1.65 [facility] Comment on above: Order Comment: Speci men Type: BLOOD SPECIMEN [facility] Address: [address] [place] [address] Performed By: #### K LFRS #### [facility] CLIA [id number] [address] [place] [address] [place] Immunoglobulin light chains.lambda.free [Mass/Vol] 17.4 mg/L Normal 5.7-26.3 [facility] Comment on above: Order Comment: Speci men Type: BLOOD SPECIMEN [facility] Address: [address] [place] [address] Result Comment: Rare ly, increased serum free [...] interchangeably. Performed By: #### K LFRS #### [facility] CLIA [id number] [address] [place] [address] [place] PROTEIN ELECTROPHORESIS SERU M WITH CARSON (P)on 01-21-2024 Albumin [Mass/Vol] 3.53 g/dL Normal 3.43-5.41 [facility] Comment on above: Order Comment: Speci men Type: BLOOD SPECIMENOrdering Facility: [facility] Address: [address] [place] [address] Performed By: #### L [id number] ####[facility] LABCLIA [id number] [place] [address] [place] Alpha 1 globulin Elph [Mass/Vol] 0.36 g/dL Normal 0.18-0.43 [facility] Comment on above: Order Comment: Speci men Type: BLOOD SPECIMENOrdering Facility: [facility] Address: [address] [place] [address] Performed By: #### L [id number] ####[facility] LABCLIA [id number] [place] [address] [place] Alpha 2 globulin Elph [Mass/Vol] 0.73 g/dL Normal 0.42-0.98 [facility] Comment on above: Order Comment: Speci men Type: BLOOD SPECIMENOrdering Facility: [facility] Address: [address] [place] [address] Performed By: #### L [id number] ####[facility] LABCLIA [id number] [place] [address] [place] Beta globulin Elph [Mass/Vol] 0.74 g/dL Normal 0.61-1.17 [facility] Comment on above: Order Comment: Speci men Type: BLOOD SPECIMENOrdering Facility: [facility] Address: [address] [place] [address] Performed By: #### L [id number] ####[facility] LABIA [id number] [place] [address] [place] COMMENT (SERUM PROT ELECTRO) Monoclonal Protein analysis (immunofixation) is not indicated. Normal [facility] Comment on above: Order Comment: Speci men Type: BLOOD SPECIMENOrdering Facility: [facility] Address: [address] [place] [address] Performed By: #### L [id number] ####[facility] OHIOIA [id number] [place] [address] [place] Gamma globulin Elph [Mass/Vol] 0.84 g/dL Normal 0.53-1.51 [facility] Comment on above: Order Comment: Speci men Type: BLOOD SPECIMENOrdering Facility: [facility] Address: [address] [place] [address] Performed By: #### L [id number] ####[facility] LABIA [id number] [place] [address] [place] INTERPRETATION COMMENT FOR PROTEIN ELECTROPHORESIS See separate immunofixation report for characterization of monoclonal gammopathy. Normal [facility] Comment on above: Order Comment: Speci men Type: BLOOD SPECIMENOrdering Facility: [facility] Address: [address] [place] [address] Performed By: #### L [id number] ####[facility] LABIA [id number] [place] [address] [place] M-PROTEIN LOCATION Gamma Fraction 1 Normal [facility] Comment on above: Order Comment: Speci men Type: BLOOD SPECIMENOrdering Facility: [facility] Address: [address] [place] [address] Performed By: #### L [id number] ####[facility] LABCLIA [id number] [place] [address] [place] Protein Fractions [Interp] An M protein is identified on protein electrophoresis. Abnormal No definitive M protein is identified on protein electrophore sis. [facility] Comment on above: Order Comment: Speci men Type: BLOOD SPECIMENOrdering Facility: [facility] Address: [address] [place] [address] Performed By: #### L [id number] ####[facility] LABIA [id number] [place] [address] [place] Protein.monoclonal Elph [Mass/Vol] 0.10 g/dL High <=0.00 [facility] Comment on above: Order Comment: Speci men Type: BLOOD SPECIMENOrdering Facility: [facility] Address: [address] [place] [address] Performed By: #### L [id number] ####[facility] LABIA [id number] [place] [address] [place] SPE STAFF REVIEW Reviewed by Fran Boyd MD, Ph.D ([id number]) Normal [facility] Comment on above: Order Comment: Speci men Type: BLOOD SPECIMENOrdering Facility: [facility] Address: [address] [place] [address] Performed By: #### L [id number] ####[facility] LABIA [id number] [place] [address] [place] [facility] Prostate specific Ag [Mass/Vol] 0.23 ng/mL Normal <2.60 [facility] Comment on above: Order Comment: Speci men Type: BLOOD SPECIMENOrdering Facility: [facility] Address: [address] [place] [address] Result Comment: Tota l PSA test methodology used is the Electrochemiluminescence Immunoassay by [employer]. Total PSA values by differing methodologies cannot be interchanged. Performed By: #### 2 857-1 ####[facility] LABCLIA [id number] [facility] [place] [address] [place] Prot SerPl-mCncon 01-21-2024 Protein [Mass/Vol] 6.2 g/dL Low 6.3-8.0 [facility] Comment on above: Order Comment: Speci men Type: BLOOD SPECIMEN [facility] Address: [address] [place] [address] Performed By: #### I [facility] #### [facility] CLIA [id number] [address] [place], [place] [address] [address] [place] CHEMISTRYOrdered By: SYSTEM SYSTEM on 10-19-2023 Albumin [...] mg/mg High 10 - 20 [facility] Chem HEMATOLOGYOrdered By: SYSTEM SYSTEM on 10-19-2023 Basophils/100 [...] Normal 4.0 - 11.0 E9/L Rem[facility] Heme CHEMISTRYOrdered By: SYSTEM SYSTEM on 01-26-2023 25-hydroxyvitamin [...] 7.5 E9/L [facility] HemeAutoSS HEMATOLOGYOrdered By: Ning Wofle on 01-26-2023 Erythrocyte distribution width (RBC) [Ratio] [...] 101.5 fL High 80.0 - 100.0 fL [facility] HemeAutoSS Platelet mean volume (Bld) [Entitic vol] [...] Comment: Casandra e reviewed by ts . PROF CHEM 8 ([facility])on Anion gap [Moles/Vol] 14.0 mmol/L Normal [facility] Comment on above: Performed By: #### B MP ####[facility] [address] [place] [address]Dr. Trevor Nichols Calcium [Mass/Vol] 8.8 mg/dL Normal 8.5-10.1 [facility] Comment on above: Performed By: #### B MP ####[facility] [address] [place] [address]Dr. Trevor Nichols Chloride [Moles/Vol] 104 mmol/L Normal 98-107 [facility] Comment on above: Performed By: #### B MP ####[facility] [address] [place] [address]Dr. Trevor Nichols CO2 [Moles/Vol] 26.0 mmol/L Normal 21.0-32.0 [facility] Comment on above: Performed By: #### B MP ####[facility] [address] [place] [address]Dr. Trevor Nichols Creatinine [Mass/Vol] 1.49 mg/dL Critically high 0.70-1.30 [facility] Comment on above: Performed By: #### B MP ####[facility] [address] [place] [address]Dr. Trevor Nichols EGFR-AF CHINESE 56 mL/min/1.73m2 Critically low >=60 [facility] Comment on above: Performed By: #### B MP ####[facility] [address] [place] [address]Dr. Trevor Nichols EGFR-NON AF CHINESE 46 mL/min/1.73m2 Critically low >=60 [facility] Comment on above: Performed By: #### B MP ####[facility] [address] [place] [address]Dr. Trevor Nichols Glucose [Mass/Vol] 115 mg/dL Critically high 74-106 [facility] Comment on above: Performed By: #### B MP ####[facility] [address] [place] [address]Dr. Trevor Nichols Potassium [Moles/Vol] 4.0 mmol/L Normal 3.5-5.1 [facility] Comment on above: Performed By: #### B MP ####[facility] [address] [place] [address]Dr. Trevor Nichols Sodium [Moles/Vol] 140 mmol/L Normal 136-145 [facility] Comment on above: Performed By: #### B MP ####[facility] [address] [place] [address]Dr. Trevor Nichols Urea nitrogen [Mass/Vol] 22.0 mg/dL Critically high 7.0-18.0 [facility] Comment on above: Performed By: #### B MP ####[facility] [address] [place] [address]Dr. Trevor Nichols Urea nitrogen/Creatinine [Mass ratio] 14.8 mg/mg Normal [facility] Comment on above: Performed By: #### B MP ####[facility] [address] [place] [address]Dr. Trevor Nichols NM STRESS/REST MULTIon 04-16 NM STRESS/REST MULTI Patient: JANNETH JUAREZ Exam Date: 04/16/2022 : 1945 Gender:M Ordering : DR DANIELLA EASTON M.D. Admission #: [id number] Family : DR WILL SHERWOOD . Order #: [id number] CLICK HERE TO VIEW EXAM RADIOLOGY REPORT [...] Beatty MD on 04/16/2022 at 10:23 Normal [facility] ECHOCARDIO M/2D COMPLETEon 0 02-19-2022 ECHOCARDIO M/2D COMPLETE Patient: CHIKI JUAREZ Exam Date: 02/19/2022 : 1945 Gender:M Ordering : [employer] Admission #: [id number] Family : DR WILL SHERWOOD . Order #: [id number] CLICK HERE TO VIEW EXAM ECHOCARDIOGRAM REPORT [...] Easton M.D. on 02/19/2022 at 19:53 Normal [facility] LIPID PROFILEon 02-10-2022 CHOL-HDL RATIO NORM SEE BELOW Normal [facility] Comment on above: Result Comment: 3.3 - 4.4 LOW RISK 4.4 - 7.1 AVERAGE RISK 7.1 - 11.0 MODERATE RISK >11.0 HIGH RISK Performed By: #### L IPID #### [facility] [address] [place] [address] Dr. Trevor Nichols Cholesterol [Mass/Vol] 171 mg/dL Normal <=200 [facility] Comment on above: Performed By: #### L IPID #### [facility] [address] [place] [address] Dr. Trevor Nichols Cholesterol in HDL [Mass/Vol] 40 mg/dL Normal 40-60 [facility] Comment on above: Performed By: #### L IPID #### [facility] [address] [place] [address] Dr. Trevor Nichols Cholesterol in LDL [Mass/Vol] 114.0 mg/dL Normal [facility] Comment on above: Performed By: #### L IPID #### [facility] [address] [place] [address] Dr. rTevor Nichols Cholesterol.total/Ch olesterol in HDL [Mass ratio] 4.3 {ratio} Normal [facility] Comment on above: Performed By: #### L IPID #### [facility] [address] [place] [address] Dr. Trevor Nichols HDL NORMAL > or = 60 mg/dl - LO W CARDIOVASCULAR RISK <40 mg/dl - HIGH CARDIOVASCULAR RISK Normal [facility] Comment on above: Performed By: #### L IPID #### [facility] [address] [place] [address] Dr. Trevor Nichols LDL CALC NORMAL SEE BELOW Normal [facility] Comment on above: Result Comment: <100 mg/dl OPTIMAL 100 - 129 mg/dl NEAR OR ABOVE OPTIMAL 130 - 159 mg/dl BORDERLINE HIGH 160 - 189 mg/dl HIGH >190 mg/dl VERY HIGH Performed By: #### L IPID #### [facility] [address] [place] [address] Dr. Trevor Nichols Triglyceride [Mass/Vol] 85 mg/dL Normal <=150 [facility] Comment on above: Performed By: #### L IPID #### [facility] [address] [place] [address] Dr. Trevor Nichols VLDL CALC 17.0 mg/dL Normal [facility] Comment on above: Performed By: #### L IPID #### [facility] [address] [place] [address] Dr. Trevor Nichols BNPon 02-05-2022 Natriuretic peptide B (Bld) [Mass/Vol] 231.0 pg/mL Normal <=900.0 [facility] Comment on above: Performed By: #### H STROPN, BNP, BMP #### [facility] [address] [place] [address] Dr. Trevor Nichols CBC W MANUAL DIFFon 02-06-20 ANISOCYTOSIS 1+ Normal [facility] Comment on above: Performed By: #### C JOBY #### [facility] [address] [place] [address] Dr. Trevor Nichols ATYPICAL LYMPH # Normal [facility] Comment on above: Performed By: #### C JOBY #### [facility] [address] [place] [address] Dr. Trevor Nichols ATYPICAL LYMPH % Normal [facility] Comment on above: Performed By: #### C JOBY #### [facility] [address] [place] [address] Dr. Trevor Nichols BAND # 0.3 103/ul Normal 0.0-0.3 [facility] Comment on above: Performed By: #### C JOBY #### [facility] [address] [place] [address] Dr. Trevor Nichols BAND % 6 % Critically high 0-5 [facility] Comment on above: Performed By: #### C JOBY #### [facility] [address] [place] [address] Dr. Trevor Nichols BASOM # 0.00 103/ul Normal 0.00-0.10 [facility] Comment on above: Performed By: #### C JOBY #### [facility] [address] [place] [address] Dr. Trevor Nichols BASOM % 0.0 % Critically low 0.2-2.0 [facility] Comment on above: Performed By: #### C JOBY #### [facility] [address] [place] [address] Dr. Trevor Nichols BLAST # Normal [facility] Comment on above: Performed By: #### C BCNADIA #### [facility] [address] [place] [address] Dr. Trevor Nichols BLAST % Normal [facility] Comment on above: Performed By: #### C BCNADIA #### [facility] [address] [place] [address] Dr. Trevor Nichols CORRECTED WBC Normal 4.0-11.0 [facility] Comment on above: Performed By: #### C JOBY #### [facility] [address] [place] [address] Dr. Trevor Nichols EOS # 0.04 103/ul Normal 0.00-0.70 [facility] Comment on above: Performed By: #### C JOBY #### [facility] [address] [place] [address] Dr. Trevor Nichols EOS% 1.0 % Normal 0.9-7.0 [facility] Comment on above: Performed By: #### C JOBY #### [facility] [address] [place] [address] Dr. Trevor Nichols HCT 36.4 % Critically low 42.0-54.0 [facility] Comment on above: Performed By: #### C JOBY #### [facility] [address] [place] [address] Dr. Trevor Nichols HGB 11.4 g/dl Critically low 14.0-18.0 [facility] Comment on above: Performed By: #### C JOBY #### [facility] [address] [place] [address] Dr. Trevor Nichols HYPOCHROMASIA SLIGHT Normal [facility] Comment on above: Performed By: #### C JOBY #### [facility] [address] [place] [address] Dr. Trevor Nichols LYMPHM # 1.19 103/ul Critically low 1.20-3.80 [facility] Comment on above: Performed By: #### C JOBY #### [facility] [address] [address] [address] Trevor Nichols LYMPHM% 27.0 % Normal 20.5-60.0 [facility] Comment on above: Performed By: #### C JOBY #### [facility] [address] [place] [address] Dr. Trevor Nichols MCH 32.5 pg Normal 25.9-34.0 [facility] Comment on above: Performed By: #### C JOBY #### [facility] [address] [address] [address] Trevor Nichols MCHC 31.3 g/dl Normal 29.9-35.2 [facility] Comment on above: Performed By: #### C JOBY #### [facility] [address] [place] [address] Dr. Trevor Nichols MCV 103.7 fL Critically high 80.0-94.0 [facility] Comment on above: Performed By: #### C JOBY #### [facility] [address] [place] [address] Dr. Trevor Nichols METAMYELOCYTE # Normal [facility] Comment on above: Performed By: #### C JOBY #### [facility] [address] [place] [address] Dr. Trevor Nichols METAMYELOCYTE % Normal [facility] Comment on above: Performed By: #### C JOBY #### [facility] [address] [place] [address] Dr. Trevor Nichols MONOM# 1.28 103/ul Critically high 0.30-0.80 [facility] Comment on above: Performed By: #### C JOBY #### [facility] [address] [place] [address] Dr. Trevor Nichols MONOM% 29.0 % Critically high 1.7-12.0 [facility] Comment on above: Performed By: #### C JOBY #### [facility] [address] [place] [address] Dr. Trevor Nichols MPV 10.5 fL Normal 9.5-13.5 [facility] Comment on above: Performed By: #### C BCMAN #### [facility] [address] [address] [address] Trevor Nichols MYELOCYTE # Normal [facility] Comment on above: Performed By: #### C BCNADIA #### [facility] [address] [place] [address] Dr. Trevor Nichols MYELOCYTE % Normal [facility] Comment on above: Performed By: #### C BCNADIA #### [facility] [address] [place] [address] Dr. Trevor Nichols NRBC Normal [facility] Comment on above: Performed By: #### C JOBY #### [facility] [address] [place] [address] Dr. Trevor Nichols PLT 161 103/ul Normal 150-450 [facility] Comment on above: Performed By: #### C JOBY #### [facility] [address] [place] [address] Dr. Trevor Nichols RBC 3.51 106/ul Critically low 4.70-6.10 [facility] Comment on above: Performed By: #### C JOBY #### [facility] [address] [place] [address] Dr. Trevor Nichols RDW 16.0 % Critically high 11.0-15.0 [facility] Comment on above: Performed By: #### C BCNADIA #### [facility] [address] [place] [address] Dr. Trevor Nichols SEG # 1.63 103/ul Normal 1.40-6.50 [facility] Comment on above: Performed By: #### C BCNADIA #### [facility] [address] [place] [address] Dr. Trevor Nichols SEG % 37.0 % Critically low 43.0-75.0 [facility] Comment on above: Performed By: #### C BCNADIA #### [facility] [address] [place] [address] Dr. Trevor Nichols WBC 4.4 103/ul Normal 4.0-11.0 [facility] Comment on above: Performed By: #### C BCMAN #### [facility] [address] [address] [address] Trevor Nichols PROF 14(COMP METB)on 022 Albumin [Mass/Vol] 3.4 g/dL Normal 3.4-5.0 [facility] Comment on above: Performed By: #### H STROPN, BNP, BMP #### [facility] [address] [address] [address] Trevor Nichols Albumin/Globulin [Mass ratio] 0.9 {ratio} Normal [facility] Comment on above: Performed By: #### H STROPN, BNP, BMP #### [facility] [address] [place] [address] Dr. Trevor Nichols ALP [Catalytic activity/Vol] 99 U/L Normal 46-116 [facility] Comment on above: Performed By: #### H STROPN, BNP, BMP #### [facility] [address] [address] [address] Trevor Nichols ALT [Catalytic activity/Vol] 18 U/L Normal 16-63 [facility] Comment on above: Performed By: #### H STROPN, BNP, BMP #### [facility] [address] [place] [address] Dr. Trevor Nichols Anion gap [Moles/Vol] 13.5 mmol/L Normal [facility] Comment on above: Performed By: #### H STROPN, BNP, BMP #### [facility] [address] [address] [address] Trevor Nichols AST [Catalytic activity/Vol] 10 U/L Critically low 15-37 [facility] Comment on above: Performed By: #### H STROPN, BNP, BMP #### [facility] [address] [place] [address] Dr. Trevor Nichols Bilirubin [Mass/Vol] 0.5 mg/dL Normal 0.2-1.0 [facility] Comment on above: Performed By: #### H STROPN, BNP, BMP #### [facility] [address] [place] [address] Dr. Trevor Nichols Calcium [Mass/Vol] 8.8 mg/dL Normal 8.5-10.1 [facility] Comment on above: Performed By: #### H STROPN, BNP, BMP #### [facility] [address] [address] [address] Trevor Nichols Chloride [Moles/Vol] 106 mmol/L Normal 98-107 [facility] Comment on above: Performed By: #### H STROPN, BNP, BMP #### [facility] [address] [address] [address] Trevor Nichols CO2 [Moles/Vol] 24.3 mmol/L Normal 21.0-32.0 [facility] Comment on above: Performed By: #### H STROPN, BNP, BMP #### [facility] [address] [place] [address] Dr. Trevor Nichols Creatinine [Mass/Vol] 1.35 mg/dL Critically high 0.70-1.30 [facility] Comment on above: Performed By: #### H STROPN, BNP, BMP #### [facility] [address] [place] [address] Dr. Trevor Nichols EGFR-AF CHINESE >60 Normal >=60 [facility] Comment on above: Performed By: #### H STROPN, BNP, BMP #### [facility] [address] [place] [address] Dr. Trevor Nichols EGFR-NON AF CHINESE 52 mL/min/1.73m2 Critically low >=60 [facility] Comment on above: Performed By: #### H STROPN, BNP, BMP #### [facility] [address] [address] [address] Trevor Nichols Globulin (S) [Mass/Vol] 3.8 g/dL Normal [facility] Comment on above: Performed By: #### H STROPN, BNP, BMP #### [facility] [address] [address] [address] Trevor Nichols Glucose [Mass/Vol] 103 mg/dL Normal 74-106 [facility] Comment on above: Performed By: #### H STROPN, BNP, BMP #### [facility] [address] [address] [address] Trevor Nichols Potassium [Moles/Vol] 3.8 mmol/L Normal 3.5-5.1 [facility] Comment on above: Performed By: #### H STROPN, BNP, BMP #### [facility] [address] [place] [address] Dr. Trevor Nichols Protein [Mass/Vol] 7.2 g/dL Normal 6.4-8.2 [facility] Comment on above: Performed By: #### H STROPN, BNP, BMP #### [facility] [address] [place] [address] Dr. Trevor Nichols Sodium [Moles/Vol] 140 mmol/L Normal 136-145 [facility] Comment on above: Performed By: #### H STROPN, BNP, BMP #### [facility] [address] [place] [address] Dr. Trevor Nichols Urea nitrogen [Mass/Vol] 22.0 mg/dL Critically high 7.0-18.0 [facility] Comment on above: Performed By: #### H STROPN, BNP, BMP #### [facility] [address] [place] [address] Dr. Trevor Nichols Urea nitrogen/Creatinine [Mass ratio] 16.3 mg/mg Normal [facility] Comment on above: Performed By: #### H STROPN, BNP, BMP #### [facility] [address] [place] [address] Dr. Trevor Nichols TSHon 02-05-2022 TSH 3.360 uIU/mL Normal 0.358-3.740 [facility] Comment on above: Performed By: #### H STROPN, BNP, BMP #### [facility] [address] [place] [address] Dr. Trevor Nichols XR CHEST 2 Von [...] by: ALLAN FLOREZ Date: 2022-02-05 17:03 Normal [facility] XR BONE SURVEYon 09-25-2021 XR BONE [...] by: SHAY BERNSTEIN Date: 2021-09-25 07:30 Normal [facility] PROTEIN ELECTROPHERESISon Albumin [Mass/Vol] 3.2 g/dL Normal 2.9-4.4 [facility] Comment on above: Performed By: #### P RTELEC ####[facility] [address] [address]Dr. Trevor Nichols Albumin/Globulin [Mass ratio] 1.1 {ratio} Normal 0.7-1.7 [facility] Comment on above: Performed By: #### P RTELEC ####[facility] [address] [address]Dr. Trevor Nichols Yflkk-2-Bmeuaeig 0.3 g/dL Normal 0.0-0.4 [facility] Comment on above: Performed By: #### P RTELEC ####[facility] [address] [place], [place] [address]Dr. Trevor Nichols Axaut-8-Zsmdfiqh 0.8 g/dL Normal 0.4-1.0 [facility] Comment on above: Performed By: #### P RTELEC ####[facility] [address] [place], [place] [address]Dr. Trevor Nichols Beta Globulin 1.0 g/dL Normal 0.7-1.3 [facility] Comment on above: Performed By: #### P RTELEC ####[facility] [address] [place], [place] [address]Dr. Trevor Nichols Gamma Globulin 0.8 g/dL Normal 0.4-1.8 [facility] Comment on above: Performed By: #### P RTELEC ####[facility] [address] [address]Dr. Vivilan Nichols Globulin (S) [Mass/Vol] 2.9 g/dL Normal 2.2-3.9 [facility] Comment on above: Performed By: #### P RTELEC ####[facility] [address] [address]Dr. Vivilan Nichols M-Jorge 0.1 g/dL Critically high Not Observed [facility] Comment on above: Performed By: #### P RTELEC ####[facility] [address] [address]DrJeffery Nichols PDF . Normal [facility] Comment on above: Performed By: #### P RTELEC ####[facility] [address] [address]Dr. Trevor Nichols Please note: Comment Normal [facility] Comment on above: Result Comment: Prot ein electrophoresis scan will follow via computer, mail, or manager enrollment delivery. Performed By: #### P RTELEC ####[facility] [address] [address]Dr. Trevor Nichols Protein [Mass/Vol] 6.1 g/dL Normal 6.0-8.5 [facility] Comment on above: Performed By: #### P RTELEC ####[facility] [address] [address]DrJeffery Nichols PROF CHEM 8 (BAS METB)on Anion gap [Moles/Vol] 16.3 mmol/L Normal [facility] Comment on above: Performed By: #### H STROPN, BNP, BMP #### [facility] [address] [address] [address] Trevor Nichols Calcium [Mass/Vol] 9.1 mg/dL Normal 8.4-10.2 [facility] Comment on above: Performed By: #### H STROPN, BNP, BMP #### [facility] [address] [address] [address] Trevor Nichols Chloride [Moles/Vol] 104 mmol/L Normal 98-107 [facility] Comment on above: Performed By: #### H STROPN, BNP, BMP #### [facility] [address] [address] [address] Trevor Nichols CO2 [Moles/Vol] 23.3 mmol/L Normal 22.0-30.0 [facility] Comment on above: Performed By: #### H STROPN, BNP, BMP #### [facility] [address] [address] [address] Trevor Nichols Creatinine [Mass/Vol] 1.28 mg/dL Critically high 0.66-1.25 [facility] Comment on above: Performed By: #### H STROPN, BNP, BMP #### [facility] [address] [address] [address] Trevor Nichols EGFR-AF CHINESE >60 Normal >=60 [facility] Comment on above: Performed By: #### H STROPN, BNP, BMP #### [facility] [address] [place] [address] Dr. Trevor Nichols EGFR-NON AF CHINESE 55 mL/min/1.73m2 Critically low >=60 [facility] Comment on above: Performed By: #### H STROPN, BNP, BMP #### [facility] [address] [place] [address] Dr. Trevor Nichols Glucose [Mass/Vol] 98 mg/dL Normal 74-106 [facility] Comment on above: Performed By: #### H STROPN, BNP, BMP #### [facility] [address] [place] [address] Dr. Trevor Nichols Potassium [Moles/Vol] 3.6 mmol/L Normal 3.4-5.0 [facility] Comment on above: Performed By: #### H STROPN, BNP, BMP #### [facility] [address] [place] [address] Dr. Trevor Nichols Sodium [Moles/Vol] 140 mmol/L Normal 137-145 [facility] Comment on above: Performed By: #### H STROPN, BNP, BMP #### [facility] [address] [place] [address] Dr. Trevor Nichols Urea nitrogen [Mass/Vol] 25.0 mg/dL Critically high 9.0-20.0 [facility] Comment on above: Performed By: #### H STROPN, BNP, BMP #### [facility] [address] [place] [address] Dr. Trevor Nichols Urea nitrogen/Creatinine [Mass ratio] 19.5 mg/mg Normal [facility] Comment on above: Performed By: #### H STROPN, BNP, BMP #### [facility] [address] [place] [address] Dr. Trevor Nichols XR MODIFIED BARIUM SWALLOWon [...] by: SHAY BERNSTEIN Date: 2021-09-05 10:40 Normal [facility] CULTURE SPUTUMon 08-01-2021 CULTURE SPUTUM Isolate [...] Trimethoprim/Sulfamethoxaz ole <=20 S F Normal [facility] Comment on above: Performed By: #### H STROPN, BNP, BMP #### [facility] [address] [place], [place] [address] Dr. Trevor Nichols SPUTUM GRAM STAINon 07-30-20 21 COMMENTS Normal [facility] Comment on above: Performed By: #### S PUTGS ####[facility] [address] [place], [place] [address]MwDr. Trevor Nichols DIPHTHEROIDS Normal [facility] Comment on above: Performed By: #### S PUTGS ####[facility] [address] [address]Dr. Trevor Nichols EPITHELIALS >25 Normal [facility] Comment on above: Performed By: #### S PUTGS ####[facility] [address] [address]Dr. Trevor Nichols FUNGAL ELEMENTS Normal [facility] Comment on above: Performed By: #### S PUTGS ####[facility] [address] [address]Dr. Trevor Nichols GRAM NEG BACILLI RARE Normal [facility] Comment on above: Performed By: #### S PUTGS ####[facility] [address] [place], [place] [address]Dr. Trevor Nichols GRAM NEG DIPPLOCOCCI Normal [facility] Comment on above: Performed By: #### S PUTGS ####[facility] [address] [place], [place] [address]Dr. Trevor Nichols GRAM POS BACILLI MANY Normal [facility] Comment on above: Performed By: #### S PUTGS ####[facility] [address] [place], [place] [address]Dr. Trevor Nichols GRAM POSITIVE COCCI MANY Normal [facility] Comment on above: Performed By: #### S PUTGS ####[facility] [address] [place], [place] [address]Dr. Trevor Nichols WBC (Bld) [#/Vol] 10*3/uL Normal [facility] Comment on above: Performed By: #### S PUTGS ####[facility] [address] [place], [place] [address]Dr. Trevor Nichols ECHOCARDIO M/2D COMPLETEon 1 09-24-2020 ECHOCARDIO M/2D COMPLETE Patient: CHIKI JUAREZ Exam Date: 07/24/2021 : 1945 Gender:M Ordering : [employer] Admission #: [id number] Family : DR WILL SHERWOOD . Order #: [id number] CLICK HERE TO VIEW EXAM ECHOCARDIOGRAM REPORT [...] M.D. on 07/24/2021 at 20:08 Normal [facility] CBC W MANUAL DIFFon -22-20 21 ATYPICAL LYMPH # Normal [facility] Comment on above: Performed By: #### H STROPN, BNP, BMP #### [facility] [address] [place] [address] Dr. Trevor Nichols ATYPICAL LYMPH % Normal [facility] Comment on above: Performed By: #### H STROPN, BNP, BMP #### [facility] [address] [place] [address] Dr. Trevor Nichols BAND # 0.1 103/ul Normal 0.0-0.3 [facility] Comment on above: Performed By: #### H STROPN, BNP, BMP #### [facility] [address] [place] [address] Dr. Trevor Nichols BAND % 2 % Normal 0-5 [facility] Comment on above: Performed By: #### H STROPN, BNP, BMP #### [facility] [address] [place] [address] Dr. Trevor Nichols BASOM # 0.00 103/ul Normal 0.00-0.10 [facility] Comment on above: Performed By: #### H STROPN, BNP, BMP #### [facility] [address] [place] [address] Dr. Trevor Nichols BASOM % 0.0 % Critically low 0.2-2.0 [facility] Comment on above: Performed By: #### H STROPN, BNP, BMP #### [facility] [address] [place] [address] Dr. Trevor Nichols BLAST # Normal [facility] Comment on above: Performed By: #### H STROPN, BNP, BMP #### [facility] [address] [place] [address] Dr. Trevor Nichols BLAST % Normal [facility] Comment on above: Performed By: #### H STROPN, BNP, BMP #### [facility] [address] [place] [address] Dr. Trevor Nichols CORRECTED WBC Normal 4.0-11.0 [facility] Comment on above: Performed By: #### H STROPN, BNP, BMP #### [facility] [address] [place] [address] Dr. Trevor Nichols EOS # 0.06 103/ul Normal 0.00-0.70 [facility] Comment on above: Performed By: #### H STROPN, BNP, BMP #### [facility] [address] [place], [place] [id number] Dr. Trevor Nichols EOS% 1.0 % Normal 0.9-7.0 [facility] Comment on above: Performed By: #### H STROPN, BNP, BMP #### [facility] [address] [address] [address] Trevor Nichols HCT 31.6 % Critically low 42.0-54.0 [facility] Comment on above: Performed By: #### H STROPN, BNP, BMP #### [facility] [address] [address] [address] Trevor Nichols HGB 9.7 g/dl Critically low 14.0-18.0 [facility] Comment on above: Performed By: #### H STROPN, BNP, BMP #### [facility] [address] [place] [address] Dr. Trevor Nichols LYMPHM # 0.46 103/ul Critically low 1.20-3.80 [facility] Comment on above: Performed By: #### H STROPN, BNP, BMP #### [facility] [address] [place] [address] Dr. Trevor Nichols LYMPHM% 8.0 % Critically low 20.5-60.0 [facility] Comment on above: Performed By: #### H STROPN, BNP, BMP #### [facility] [address] [place] [address] Dr. Trevor Nichols MACROCYTOSIS 1+ Normal [facility] Comment on above: Performed By: #### H STROPN, BNP, BMP #### [facility] [address] [place] [address] Dr. Trevor Nichols MCH 33.6 pg Normal 25.9-34.0 [facility] Comment on above: Performed By: #### H STROPN, BNP, BMP #### [facility] [address] [place] [address] Dr. Trevor Nichols MCHC 30.7 g/dl Normal 29.9-35.2 [facility] Comment on above: Performed By: #### H STROPN, BNP, BMP #### [facility] [address] [place] [address] Dr. Trevor Nichols MCV 109.3 fL Critically high 80.0-94.0 [facility] Comment on above: Performed By: #### H STROPN, BNP, BMP #### [facility] [address] [address] [address] Trevor Nichols METAMYELOCYTE # 0.1 103/ul Normal [facility] Comment on above: Performed By: #### H STROPN, BNP, BMP #### [facility] [address] [address] [address] Trevor Nichols METAMYELOCYTE % 2 % Normal [facility] Comment on above: Performed By: #### H STROPN, BNP, BMP #### [facility] [address] [place] [address] Dr. Trevor Nichols MONOM# 2.22 103/ul Critically high 0.30-0.80 [facility] Comment on above: Performed By: #### H STROPN, BNP, BMP #### [facility] [address] [place] [address] Dr. Trevor Nichols MONOM% 39.0 % Critically high 1.7-12.0 [facility] Comment on above: Performed By: #### H STROPN, BNP, BMP #### [facility] [address] [place] [address] Dr. Trevor Nichols MPV 9.4 fL Critically low 9.5-13.5 [facility] Comment on above: Performed By: #### H STROPN, BNP, BMP #### [facility] [address] [place] [address] Dr. Trevor Nichols MYELOCYTE # 0.3 103/ul Normal [facility] Comment on above: Performed By: #### H STROPN, BNP, BMP #### [facility] [address] [place] [address] Dr. Trevor Nichols MYELOCYTE % 6 % Normal [facility] Comment on above: Performed By: #### H STROPN, BNP, BMP #### [facility] [address] [place] [address] Dr. Trevor Nichols NRBC Normal [facility] Comment on above: Performed By: #### H STROPN, BNP, BMP #### [facility] [address] [address] [address] Trevor Nichols PLT 202 103/ul Normal 150-450 [facility] Comment on above: Performed By: #### H STROPN, BNP, BMP #### [facility] [address] [place], [place] [address] Dr. Trevor Nichols RBC 2.89 106/ul Critically low 4.70-6.10 [facility] Comment on above: Performed By: #### H STROPN, BNP, BMP #### [facility] [address] [address] [address] Trevor Nichols RDW 15.4 % Critically high 11.0-15.0 [facility] Comment on above: Performed By: #### H STROPN, BNP, BMP #### [facility] [address] [address] [address] Trevor Nichols SEG # 2.39 103/ul Normal 1.40-6.50 [facility] Comment on above: Performed By: #### H STROPN, BNP, BMP #### [facility] [address] [address] [address] Trevor Nichols SEG % 42.0 % Critically low 43.0-75.0 [facility] Comment on above: Performed By: #### H STROPN, BNP, BMP #### [facility] [address] [address] [address] Trevor Nichols WBC 5.7 103/ul Normal 4.0-11.0 [facility] Comment on above: Performed By: #### H STROPN, BNP, BMP #### [facility] [address] [address] [address] Trevor Nichols PROF CHEM 8 (BAS METB)on Anion gap [Moles/Vol] 13.1 mmol/L Normal [facility] Comment on above: Performed By: #### B MP ####[facility] [address] [address]Dr. Trevor Nichols Calcium [Mass/Vol] 8.8 mg/dL Normal 8.4-10.2 [facility] Comment on above: Performed By: #### B MP ####[facility] [address] [address]Dr. Trevor Simone Chloride [Moles/Vol] 104 mmol/L Normal 98-107 [facility] Comment on above: Performed By: #### B MP ####[facility] [address] [address]Dr. Vivifrancie Simone CO2 [Moles/Vol] 24.1 mmol/L Normal 22.0-30.0 [facility] Comment on above: Performed By: #### B MP ####[facility] [address] [place], [place] [address]Dr. Vivifrancie Simone Creatinine [Mass/Vol] 1.26 mg/dL Critically high 0.66-1.25 [facility] Comment on above: Performed By: #### B MP ####[facility] [address] [place], [place] [address]Dr. Vivifrancie Simone EGFR-AF CHINESE >60 Normal >=60 [facility] Comment on above: Performed By: #### B MP ####[facility] Ib[address]elf[address] [place], [place] [address]Dr. Vivifrancie Simone EGFR-NON AF CHINESE 56 mL/min/1.73m2 Critically low >=60 [facility] Comment on above: Performed By: #### B MP ####[facility] [address] [place], [place] [address]Dr. Trevor Nichols Glucose [Mass/Vol] 98 mg/dL Normal 74-106 [facility] Comment on above: Performed By: #### B MP ####[facility] [address] [place], [place] [address]Dr. Trevor Nichols Potassium [Moles/Vol] 4.2 mmol/L Normal 3.4-5.0 [facility] Comment on above: Performed By: #### B MP ####[facility] [address] [place], [place] [address]Dr. Trevor Nichols Sodium [Moles/Vol] 137 mmol/L Normal 137-145 [facility] Comment on above: Performed By: #### B MP ####[facility] [address] [address]Dr. Trevor Simone Urea nitrogen [Mass/Vol] 20.0 mg/dL Normal 9.0-20.0 [facility] Comment on above: Performed By: #### B MP ####[facility] Qtbereubyi[address] [place], [place] [address]Dr. Trevor Nichols Urea nitrogen/Creatinine [Mass ratio] 15.9 mg/mg Normal [facility] Comment on above: Performed By: #### B MP ####[facility] [address] [place], [place] [address]Dr. Vivifrancie Nichols CBC AUTO DIFFon 05-16-2021 BASO # 0.0 103/ul Normal 0.0-0.1 [facility] Comment on above: Performed By: #### C BC ####[facility] Q[address]py[address] [place], [place] [address]Dr. Trevor Nichols Basophils/100 WBC (Bld) 0.2 % Normal 0.2-2.0 [facility] Comment on above: Performed By: #### C BC ####[facility] E[address]ekaueg[address] [place], [place] [address]Dr. Trevor Nichols EO # 0.0 103/ul Normal 0.0-0.7 [facility] Comment on above: Performed By: #### C BC ####[facility] Igthjyjiol[address] [place], [place] [address]Dr. Trevor Nichols Eosinophils/100 WBC (Bld) 0.0 % Critically low 0.9-7.0 [facility] Comment on above: Performed By: #### C BC ####[facility] [address] [place], [place] [address]Dr. Trevor Nichols Erythrocyte distribution width (RBC) [Ratio] 15.1 % Critically high 11.0-15.0 [facility] Comment on above: Performed By: #### C BC ####[facility] K[address]qran[address] [place], [place] [address]Dr. Trevor Nichols Hematocrit (Bld) [Volume fraction] 32.9 % Critically low 42.0-54.0 [facility] Comment on above: Performed By: #### C BC ####[facility] [address] [address]DrJeffery Nichols Hemoglobin (Bld) [Mass/Vol] 10.5 g/dL Critically low 14.0-18.0 [facility] Comment on above: Performed By: #### C BC ####[facility] [address] [place], [place] [address]DrJeffery Nichols IG # 0.29 10e3/ul Critically high 0.00-0.03 [facility] Comment on above: Performed By: #### C BC ####[facility] [address] [place], [place] [address]DrJeffery Nichols IG % 6.5 % Critically high 0.0-0.5 [facility] Comment on above: Performed By: #### C BC ####[facility] [address] [place], [place] [address]DrJeffery Nichols LYMPH # 0.2 103/ul Critically low 1.2-3.8 [facility] Comment on above: Performed By: #### C BC ####[facility] [address] [place], [place] [address]DrJeffery Nichols Lymphocytes/100 WBC (Bld) 5.4 % Critically low 20.5-60.0 [facility] Comment on above: Performed By: #### C BC ####[facility] [address]ub[address]uy[address] [place], [place] [address]DrJeffery Nichols MANUAL DIFF REQ NO Normal [facility] Comment on above: Performed By: #### C BC ####[facility] [address] [place], [place] [address]DrJeffery Nichols MCH (RBC) [Entitic mass] 33.8 pg Normal 25.9-34.0 [facility] Comment on above: Performed By: #### C BC ####[facility] [address] [place], [place] [address]DrJeffery Nichols MCHC (RBC) [Mass/Vol] 31.9 g/dL Normal 29.9-35.2 [facility] Comment on above: Performed By: #### C BC ####[facility] [address] [address]DrJeffery Nichols MCV (RBC) [Entitic vol] 105.8 fL Critically high 80.0-94.0 [facility] Comment on above: Performed By: #### C BC ####[facility] [address] [place], [place] [address]DrJeffery Nichols MONO # 0.3 103/ul Normal 0.3-0.8 [facility] Comment on above: Performed By: #### C BC ####[facility] [address] [place], [place] [address]DrJeffery Nichols Monocytes/100 WBC (Bld) 7.6 % Normal 1.7-12.0 [facility] Comment on above: Performed By: #### C BC ####[facility] [address] [place], [place] [address]DrJeffery Nichols NEUT # 3.6 103/ul Normal 1.4-6.5 [facility] Comment on above: Performed By: #### C BC ####[facility] [address] [place], [place] [address]DrJeffery Nichols Neutrophils/100 WBC (Bld) 80.3 % Critically high 43.0-75.0 [facility] Comment on above: Performed By: #### C BC ####[facility] [address] [place], [place] [address]DrJeffery Nichols Platelet mean volume (Bld) [Entitic vol] 10.2 fL Normal 9.5-13.5 [facility] Comment on above: Performed By: #### C BC ####[facility] [address] [place], [place] [address]DrJeffery Nichols PLT 192 103/ul Normal 150-450 [facility] Comment on above: Performed By: #### C BC ####[facility] [address] [place], [place] [address]DrJeffery Nichols RBC 3.11 106/ul Critically low 4.70-6.10 [facility] Comment on above: Performed By: #### C BC ####[facility] [address] [place], [place] [address]EqJeffery Nichols WBC 4.5 103/ul Normal 4.0-11.0 [facility] Comment on above: Performed By: #### C BC ####[facility] [address] [place], [place] [address] STROKE HEAD WOon 05-16-20 21 [...] SHAY BERNSTEIN Date: 2021-05-16 14:45 Normal [facility] CTA NECK WO W CONon 05-16-20 [...] SHAY BERNSTEIN Date: 2021-05-16 16:53 Normal [facility] IRON AND TIBCon 05-16-2021 % SATURATION 16.2 % Normal [facility] Comment on above: Performed By: #### F ETIBC, B12FOL #### [facility] [address] [address] [address] Trevor Nichols Iron [Mass/Vol] 32.0 ug/dL Critically low 49.0-181.0 [facility] Comment on above: Performed By: #### F ETIBC, B12FOL #### [facility] [address] [address] [address] Trevor Nichols TIBC DIRECT 198.0 ug/dL Critically low 261.0-497.0 [facility] Comment on above: Performed By: #### F ETIBC, B12FOL #### [facility] [address] [address] [address] Trevor Nichols PROF CHEM 8 (BAS METB)on Anion gap [Moles/Vol] 14.9 mmol/L Normal [facility] Comment on above: Performed By: #### B MP #### [facility] [address] [address] [address] Trevor Nichols Calcium [Mass/Vol] 9.2 mg/dL Normal 8.4-10.2 [facility] Comment on above: Performed By: #### B MP #### [facility] [address] [address] [address] Trevor Nichols Chloride [Moles/Vol] 105 mmol/L Normal 98-107 [facility] Comment on above: Performed By: #### B MP #### [facility] [address] [place] [address] Dr. Trevor Nichols CO2 [Moles/Vol] 21.6 mmol/L Critically low 22.0-30.0 [facility] Comment on above: Performed By: #### B MP #### [facility] [address] [place] [address] Dr. Trevor Nichols Creatinine [Mass/Vol] 1.36 mg/dL Critically high 0.66-1.25 [facility] Comment on above: Performed By: #### B MP #### [facility] [address] [place] [address] Dr. Trevor Nichols EGFR-AF CHINESE >60 Normal >=60 [facility] Comment on above: Performed By: #### B MP #### [facility] [address] [place] [address] Dr. Trevor Nichols EGFR-NON AF CHINESE 51 mL/min/1.73m2 Critically low >=60 [facility] Comment on above: Performed By: #### B MP #### [facility] [address] [address] [address] Trevor Nichols Glucose [Mass/Vol] 206 mg/dL Critically high 74-106 [facility] Comment on above: Performed By: #### B MP #### [facility] [address] [place] [address] Dr. Trevor Nichols Potassium [Moles/Vol] 4.5 mmol/L Normal 3.4-5.0 [facility] Comment on above: Performed By: #### B MP #### [facility] [address] [place] [address] Dr. Trevor Nichols Sodium [Moles/Vol] 137 mmol/L Normal 137-145 [facility] Comment on above: Performed By: #### B MP #### [facility] [address] [place] [address] Dr. Trevor Nichols Urea nitrogen [Mass/Vol] 26.0 mg/dL Critically high 9.0-20.0 [facility] Comment on above: Performed By: #### B MP #### [facility] [address] [place] [address] Dr. Trevor Nichols Urea nitrogen/Creatinine [Mass ratio] 19.1 mg/mg Normal [facility] Comment on above: Performed By: #### B MP #### [facility] [address] [place] [address] Dr. Trevor Nichols VIT B12 AND FOLATEon 021 Cobalamin (Vitamin B12) [Mass/Vol] pg/mL Critically high 239.0-931.0 [facility] Comment on above: Performed By: #### F ETIBC, B12FOL #### [facility] [address] [place] [address] Dr. Trevor Nichols FOLATE 15.40 ng/mL Normal >=2.76 [facility] Comment on above: Performed By: #### F ETIBC, B12FOL #### [facility] [address] [place] [address] Dr. Trevor Nichols BNPon 05-15-2021 Natriuretic peptide B (Bld) [Mass/Vol] 379.0 pg/mL Normal <=900.0 [facility] Comment on above: Performed By: #### H STROPN, BNP, BMP #### [facility] [address] [place] [address] Dr. Trevor Nichols CBC W MANUAL DIFFon 05-15-20 21 ATYPICAL LYMPH # Normal [facility] Comment on above: Performed By: #### H STROPN, BNP, BMP #### [facility] [address] [place] [address] Dr. Trevor Nichols ATYPICAL LYMPH % Normal [facility] Comment on above: Performed By: #### H STROPN, BNP, BMP #### [facility] [address] [address] [address] Trevor Nichols BAND # 0.0 103/ul Normal 0.0-0.3 [facility] Comment on above: Performed By: #### H STROPN, BNP, BMP #### [facility] [address] [address] [address] Trevor Nichols BAND % 1 % Normal 0-5 [facility] Comment on above: Performed By: #### H STROPN, BNP, BMP #### [facility] [address] [place] [address] Dr. Trevor Nichols BASOM # 0.00 103/ul Normal 0.00-0.10 [facility] Comment on above: Performed By: #### H STROPN, BNP, BMP #### [facility] [address] [place] [address] Dr. Trevor Nichols BASOM % 0.0 % Critically low 0.2-2.0 [facility] Comment on above: Performed By: #### H STROPN, BNP, BMP #### [facility] [address] [place] [address] Dr. Trevor Nichols BLAST # Normal [facility] Comment on above: Performed By: #### H STROPN, BNP, BMP #### [facility] [address] [place] [address] Dr. Trevor Nichols BLAST % Normal [facility] Comment on above: Performed By: #### H STROPN, BNP, BMP #### [facility] [address] [place] [address] Dr. Trevor Nichols BRENDA CELLS SLIGHT Normal [facility] Comment on above: Performed By: #### H STROPN, BNP, BMP #### [facility] [address] [place] [address] Dr. Trevor Nichols CORRECTED WBC Normal 4.0-11.0 [facility] Comment on above: Performed By: #### H STROPN, BNP, BMP #### [facility] [address] [address] [address] Trevor Nichols EOS # 0.05 103/ul Normal 0.00-0.70 [facility] Comment on above: Performed By: #### H STROPN, BNP, BMP #### [facility] [address] [address] [address] Trevor Nichols EOS% 1.0 % Normal 0.9-7.0 [facility] Comment on above: Performed By: #### H STROPN, BNP, BMP #### [facility] [address] [address] [address] Trevor Nichols HCT 32.5 % Critically low 42.0-54.0 [facility] Comment on above: Performed By: #### H STROPN, BNP, BMP #### [facility] [address] [address] [address] Trevor Nichols HGB 10.5 g/dl Critically low 14.0-18.0 [facility] Comment on above: Performed By: #### H STROPN, BNP, BMP #### [facility] [address] [address] [address] Trevor Nichols HYPOCHROMASIA 2+ Normal [facility] Comment on above: Performed By: #### H STROPN, BNP, BMP #### [facility] [address] [address] [address] Trevor Nichols LYMPHM # 1.03 103/ul Critically low 1.20-3.80 [facility] Comment on above: Performed By: #### H STROPN, BNP, BMP #### [facility] [address] [address] [address] Trevor Nichols LYMPHM% 22.0 % Normal 20.5-60.0 [facility] Comment on above: Performed By: #### H STROPN, BNP, BMP #### [facility] [address] [address] [address] Trevor Nichols MACROCYTOSIS 2+ Normal [facility] Comment on above: Performed By: #### H STROPN, BNP, BMP #### [facility] [address] [address] [address] Trevor Nichols MCH 34.5 pg Critically high 25.9-34.0 [facility] Comment on above: Performed By: #### H STROPN, BNP, BMP #### [facility] [address] [address] [address] Trevor Nichols MCHC 32.3 g/dl Normal 29.9-35.2 [facility] Comment on above: Performed By: #### H STROPN, BNP, BMP #### [facility] [address] [address] [address] Trevor Nichols MCV 106.9 fL Critically high 80.0-94.0 [facility] Comment on above: Performed By: #### H STROPN, BNP, BMP #### [facility] [address] [address] [address] Trevor Nichols METAMYELOCYTE # Normal [facility] Comment on above: Performed By: #### H STROPN, BNP, BMP #### [facility] [address] [address] [address] Trevor Nichols METAMYELOCYTE % Normal [facility] Comment on above: Performed By: #### H STROPN, BNP, BMP #### [facility] [address] [address] [address] Trevor Nichols MONOM# 1.74 103/ul Critically high 0.30-0.80 [facility] Comment on above: Performed By: #### H STROPN, BNP, BMP #### [facility] [address] [address] [address] Trevor Nichols MONOM% 37.0 % Critically high 1.7-12.0 [facility] Comment on above: Performed By: #### H STROPN, BNP, BMP #### [facility] [address] [address] [address] Trevor Nichols MPV 10.8 fL Normal 9.5-13.5 [facility] Comment on above: Performed By: #### H STROPN, BNP, BMP #### [facility] [address] [address] [address] Trevor Nichols MYELOCYTE # Normal [facility] Comment on above: Performed By: #### H STROPN, BNP, BMP #### [facility] [address] [address] [address] Trevor Nichols MYELOCYTE % Normal [facility] Comment on above: Performed By: #### H STROPN, BNP, BMP #### [facility] [address] [address] [address] Trevor Nichols NRBC Normal [facility] Comment on above: Performed By: #### H STROPN, BNP, BMP #### [facility] [address] [address] [address] Trevor Nichols PLT 222 103/ul Normal 150-450 [facility] Comment on above: Performed By: #### H STROPN, BNP, BMP #### [facility] [address] [place] [address] Dr. Trevor Nichols POIKILOCYTOSIS 2+ Normal [facility] Comment on above: Performed By: #### H STROPN, BNP, BMP #### [facility] [address] [place] [address] Dr. Trevor Nichols RBC 3.04 106/ul Critically low 4.70-6.10 [facility] Comment on above: Performed By: #### H STROPN, BNP, BMP #### [facility] [address] [place] [address] Dr. Trevor Nichols RDW 15.6 % Critically high 11.0-15.0 [facility] Comment on above: Performed By: #### H STROPN, BNP, BMP #### [facility] [address] [place] [address] Dr. Trevor Nichols SEG # 1.83 103/ul Normal 1.40-6.50 [facility] Comment on above: Performed By: #### H STROPN, BNP, BMP #### [facility] [address] [address] [address] Trevor Nichols SEG % 39.0 % Critically low 43.0-75.0 [facility] Comment on above: Performed By: #### H STROPN, BNP, BMP #### [facility] [address] [address] [address] Trevor Nichols TARGET CELLS 1+ Normal [facility] Comment on above: Performed By: #### H STROPN, BNP, BMP #### [facility] [address] [address] [address] Trevor Nichols TEAR DROP CELLS SLIGHT Normal [facility] Comment on above: Performed By: #### H STROPN, BNP, BMP #### [facility] [address] [address] [address] Trevor Nichols WBC 4.7 103/ul Normal 4.0-11.0 [facility] Comment on above: Performed By: #### H STROPN, BNP, BMP #### [facility] [address] [address] [address] Trevor Nichols CTA CHEST WO W CONon 29-2 021 CTA CHEST WO W CON EXAMINATION: [...] RAY SAWANT Date: 2021-05-15 11:15 Normal [facility] CULTURE BLOODon 05-15-2021 Microscopic examination of blood, culture Culture Observations: No growth at 5 days. Normal [facility] Comment on above: Performed By: #### H CHASITY BNP, BMP #### [facility] [address] [address] [address] Trevor Nichols Covid-19 PCR (CVDTB)on 04-18 SARS-CoV-2 (COVID-19) RNA DEVIN+probe Ql (Unsp spec) Not detected Normal NOT DETECTED [facility] Comment on above: Result Comment: When diagnostic testing is negative, the possibility of a false negative should be considered in the context of a patient's recent exposures and the presence of clinical signs and symptoms consistent with SARS-CoV-2. This test is not yet approved or cleared by the [place] Food and Drug Administration (FDA). This test was developed by [employer], [place], [place]. The performance characteristics of this test were validated by [facility]. The results are not intended to be used as the sole means for clinical diagnosis or patient management decisions. [facility] is authorized under Clinical Laboratory Improvement Amendments (CLIA) to perform high- complexity testing. Performed By: #### H CHASITY BNP, BMP #### [facility] [address] [address] [address] Trevor Nichols FREE T3on 05-15-2021 FREE T3 1.66 pg/mlL Critically low 2.77-5.27 [facility] Comment on above: Performed By: #### T SH, FT3 ####[facility] [address] [address]DrJeffery Nichols FREE T4on 05-15-2021 Free T4 [Mass/Vol] 1.06 ng/dL Normal 0.78-2.19 [facility] Comment on above: Performed By: #### F T4 ####[facility] [address] [address]DrJeffery Nichols LACTATE/LACTIC ACIDon 2020 Lactate [Moles/Vol] 1.2 mmol/L Normal 0.7-2.0 [facility] Comment on above: Performed By: #### L ACT ####[facility] [address] [address]Dr. Trevor Nichols Lactate [Moles/Vol] 1.5 mmol/L Normal 0.7-2.0 [facility] Comment on above: Performed By: #### L ACT ####[facility] [address] [address]Dr. Trevor Nichols PROF CHEM 8 (BAS METB)on Anion gap [Moles/Vol] 12.5 mmol/L Normal [facility] Comment on above: Performed By: #### H STROPN, BNP, BMP #### [facility] [address] [address] [address] Trevor Nichols Calcium [Mass/Vol] 8.4 mg/dL Normal 8.4-10.2 [facility] Comment on above: Performed By: #### H STROPN, BNP, BMP #### [facility] [address] [address] [address] Trevor Nichols Chloride [Moles/Vol] 106 mmol/L Normal 98-107 [facility] Comment on above: Performed By: #### H STROPN, BNP, BMP #### [facility] [address] [address] [address] Trevor Nichols CO2 [Moles/Vol] 24.8 mmol/L Normal 22.0-30.0 [facility] Comment on above: Performed By: #### H STROPN, BNP, BMP #### [facility] [address] [address] [address] Trevor Nichols Creatinine [Mass/Vol] 1.37 mg/dL Critically high 0.66-1.25 [facility] Comment on above: Performed By: #### H STROPN, BNP, BMP #### [facility] [address] [address] [address] Trevor Nichols EGFR-AF CHINESE >60 Normal >=60 [facility] Comment on above: Performed By: #### H STROPN, BNP, BMP #### [facility] [address] [address] [address] Trevor Nichols EGFR-NON AF CHINESE 51 mL/min/1.73m2 Critically low >=60 [facility] Comment on above: Performed By: #### H STROPN, BNP, BMP #### [facility] [address] [address] [address] Trevor Nichols Glucose [Mass/Vol] 114 mg/dL Critically high 74-106 [facility] Comment on above: Performed By: #### H STROPN, BNP, BMP #### [facility] [address] [address] [address] Trevor Nichols Potassium [Moles/Vol] 4.4 mmol/L Normal 3.4-5.0 [facility] Comment on above: Performed By: #### H STROPN, BNP, BMP #### [facility] [address] [address] [address] Trevor Nichols Sodium [Moles/Vol] 139 mmol/L Normal 137-145 [facility] Comment on above: Performed By: #### H STROPN, BNP, BMP #### [facility] [address] [address] [address] Trevor Nichols Urea nitrogen [Mass/Vol] 20.0 mg/dL Normal 9.0-20.0 [facility] Comment on above: Performed By: #### H STROPN, BNP, BMP #### [facility] [address] [address] [address] Trevor Nichols Urea nitrogen/Creatinine [Mass ratio] 14.6 mg/mg Normal [facility] Comment on above: Performed By: #### H STROPN, BNP, BMP #### [facility] [address] [address] [address] Trevor Nichols TROPONIN, HIGH SENSITIVITYon 05-15-2021 HSTROP 7.1 pg/mL Normal 4.0-42.2 [facility] Comment on above: Result Comment: CUT- OFF POINTS HAVE BEEN ESTABLISHED BASED ON THE FOURTH UNIVERSAL DEFINITIONS OF MYOCARDIAL INFARCTION. THE UPPER REFERENCE LIMIT (URL) OF TROPONIN, DEFINED THE 99TH PERCENTILE OF cTnI DISTRIBUTION IN A REFERENCE POPULATION, HAS BEEN CONFIRMED THE DECISION THRESHOLD FOR ME DIAGNOSIS. Performed By: #### H STROPN, BNP, BMP #### [facility] [address] [address] [address] Trevor Nichols TSHon 05-15-2021 TSH 1.972 uIU/mL Normal 0.470-4.680 [facility] Comment on above: Performed By: #### T SH, FT3 ####[facility] [address] [id number]. Trevor Nichols TSH RANGE SEE BELOW Normal [facility] Comment on above: Result Comment: <0.3 4 UIU/ml HYPERTHYROID 0.34-5.60 UIU/ml EUTHYROID >5.60 UIU/ml HYPOTHYROID Performed By: #### T SH, FT3 ####[facility] [address] [address]Dr. Trevor Nichols D-DIMERon 05-14-2021 D-DIMER 0.76 mg/L FEU Critically high 0.19-0.50 [facility] Comment on above: Performed By: #### H STROPN, BNP, BMP #### [facility] [address] [address] [address] Trevor Nichols D-DIMER COMMENTS SEE BELOW Normal [facility] Comment on above: Result Comment: Incr [...] By: #### H STROPN, BNP, BMP #### [facility] [address] [address] [address] Trevor Nichols PROF CHEM 8 (BAS METB)on Anion gap [Moles/Vol] 12.0 mmol/L Normal [facility] Comment on above: Performed By: #### H STROPN, BNP, BMP #### [facility] [address] [address] [address] Trevor Nichols Calcium [Mass/Vol] 8.5 mg/dL Normal 8.4-10.2 [facility] Comment on above: Performed By: #### H STROPN, BNP, BMP #### [facility] [address] [address] [address] Trevor Nichols Chloride [Moles/Vol] 106 mmol/L Normal 98-107 [facility] Comment on above: Performed By: #### H STROPN, BNP, BMP #### [facility] [address] [place] [address] Dr. Trevor Nichols CO2 [Moles/Vol] 25.0 mmol/L Normal 22.0-30.0 [facility] Comment on above: Performed By: #### H STROPN, BNP, BMP #### [facility] [address] [place] [address] Dr. Trevor Nichols Creatinine [Mass/Vol] 1.61 mg/dL Critically high 0.66-1.25 [facility] Comment on above: Performed By: #### H STROPN, BNP, BMP #### [facility] [address] [place] [address] Dr. Trevor Nichols EGFR-AF CHINESE 51 mL/min/1.73m2 Critically low >=60 [facility] Comment on above: Performed By: #### H STROPN, BNP, BMP #### [facility] [address] [place] [address] Dr. Trevor Nichols EGFR-NON AF CHINESE 42 mL/min/1.73m2 Critically low >=60 [facility] Comment on above: Performed By: #### H STROPN, BNP, BMP #### [facility] [address] [address] [address] Trevor Nichols Glucose [Mass/Vol] 115 mg/dL Critically high 74-106 [facility] Comment on above: Performed By: #### H STROPN, BNP, BMP #### [facility] [address] [address] [address] Trevor Nichols Potassium [Moles/Vol] 4.0 mmol/L Normal 3.4-5.0 [facility] Comment on above: Performed By: #### H STROPN, BNP, BMP #### [facility] [address] [address] [address] Trevor Nichols Sodium [Moles/Vol] 139 mmol/L Normal 137-145 [facility] Comment on above: Performed By: #### H STROPN, BNP, BMP #### [facility] [address] [address] [address] Trevor Nichols Urea nitrogen [Mass/Vol] 20.0 mg/dL Normal 9.0-20.0 [facility] Comment on above: Performed By: #### H STROPN, BNP, BMP #### [facility] [address] [address] [address] Trevor Nichols Urea nitrogen/Creatinine [Mass ratio] 12.4 mg/mg Normal [facility] Comment on above: Performed By: #### H CHASITY, BNP, BMP #### [facility] [address] [address] [address] Trevor Nichols PROF CHEM 8 (BAS METB)on Anion gap [Moles/Vol] 19.5 mmol/L Normal [facility] Comment on above: Performed By: #### B MP ####[facility] [address] [address]DrJeffery Nichols Calcium [Mass/Vol] 9.1 mg/dL Normal 8.4-10.2 [facility] Comment on above: Performed By: #### B MP ####[facility] [address] [address]Dr. Trevor Nichols Chloride [Moles/Vol] 104 mmol/L Normal 98-107 [facility] Comment on above: Performed By: #### B MP ####[facility] [address] [address]DrJeffery Nichols CO2 [Moles/Vol] 19.6 mmol/L Critically low 22.0-30.0 [facility] Comment on above: Performed By: #### B MP ####[facility] [address] [id number]. Trevor Nichols Creatinine [Mass/Vol] 1.69 mg/dL Critically high 0.66-1.25 [facility] Comment on above: Performed By: #### B MP ####[facility] [address] [id number]. Trevor Nichols EGFR-AF CHINESE 48 mL/min/1.73m2 Critically low >=60 [facility] Comment on above: Performed By: #### B MP ####[facility] [address] [address]Dr. Trevor Nichols EGFR-NON AF CHINESE 40 mL/min/1.73m2 Critically low >=60 [facility] Comment on above: Performed By: #### B MP ####[facility] [address] [place], [place] [address]Dr. Trevor Nichols Glucose [Mass/Vol] 95 mg/dL Normal 74-106 [facility] Comment on above: Performed By: #### B MP ####[facility] [address] [id number]. Trevor Nichols Potassium [Moles/Vol] 5.4 mmol/L Critically high 3.4-5.0 [facility] Comment on above: Performed By: #### B MP ####[facility] [address] [place], [place] [address]Dr. Trevor Nichols Sodium [Moles/Vol] 138 mmol/L Normal 137-145 [facility] Comment on above: Performed By: #### B MP ####[facility] [address] [id number]. Trevor Nichols Urea nitrogen [Mass/Vol] 26.0 mg/dL Critically high 9.0-20.0 [facility] Comment on above: Performed By: #### B MP ####[facility] [address] [place], [place] [address]Dr. Trevor Simone Urea nitrogen/Creatinine [Mass ratio] 15.4 mg/mg Normal [facility] Comment on above: Performed By: #### B MP ####[facility] [address] [place], [place] [address]Dr. Trevor Nichols BNPon 04-29-2021 Natriuretic peptide B (Bld) [Mass/Vol] 421.0 pg/mL Normal <=900.0 [facility] Comment on above: Performed By: #### B SALES MERCHANDISING SPECIALIST, MG ####[facility] Cf[address]ase[address] [place] [address] [place] CBC W MANUAL DIFFon 04-29-20 21 ATYPICAL LYMPH # 0.19 103/ul Normal [facility] Comment on above: Performed By: #### C JOBY ####[facility] [address] [place] [address] [place]#### PERSMR ####[facility] Fmye[address]clap[address] [place], [place] [address]Dr. Trevor Nichols ATYPICAL LYMPH % 4 % Normal [facility] Comment on above: Performed By: #### C JOBY ####[facility] [address] [place] [address] [place]#### PERSMR ####[facility] Ubsph[address]cmx[address] [place], [place] [address]Dr. Trevor Nichols BAND # 0.2 103/ul Normal 0.0-0.3 [facility] Comment on above: Performed By: #### C JOBY ####[facility] [address] [place] [address] [place]#### PERSMR ####[facility] I[address]owvgoal[address] [place], [place] [address]Dr. Yilan Nichols BAND % 5 % Normal 0-5 [facility] Comment on above: Performed By: #### C JOBY ####[facility] [address] [place] [address] [place]#### PERSMR ####[facility] Bwpx[address] [place], [place] [address]Dr. Trevor Nichols BASOM # 0.05 103/ul Normal 0.00-0.10 [facility] Comment on above: Performed By: #### C JOBY ####[facility] C[address]re[address] [place], [place] [address] [place]#### PERSMR ####[facility] [address] [address]Dr. Trevor Nichols BASOM % 1.0 % Normal 0.2-2.0 [facility] Comment on above: Performed By: #### C JOBY ####[facility] [address] [place] [address] [place]#### PERSMR ####[facility] [address] [address]Dr. Trevor Nichols BLAST # Normal [facility] Comment on above: Performed By: #### C JOBY ####[facility] [address] [place] [address] [place]#### PERSMR ####[facility] Hvhcvqwotv[address] [place], [place] [address]Dr. Trevor Nichols BLAST % Normal [facility] Comment on above: Performed By: #### C JOBY ####[facility] [address] [place] [address] [place]#### PERSMR ####[facility] Ojum[address]akwks[address] [place], [place] [address]Dr. Trevor Nichols CORRECTED WBC Normal 4.0-11.0 [facility] Comment on above: Performed By: #### C JOBY ####[facility] [address]swxisixx[address] [place] [address] [place]#### PERSMR ####[facility] Dciybtcbvi[address] [place], [place] [address]Dr. Trevor Nichols EOS # 0.00 103/ul Normal 0.00-0.70 [facility] Comment on above: Performed By: #### C JOBY ####[facility] Rdwufrksnn[address] [place] [address] [place]#### PERSMR ####[facility] Qecmhnrfry[address] [place], [place] [address]Dr. Trevor Nichols EOS% 0.0 % Critically low 0.9-7.0 [facility] Comment on above: Performed By: #### C JOBY ####[facility] [address] [place] [address] [place]#### PERSMR ####[facility] P[address]zs[address] [place], [place] [address]Dr. Trevor Nichols HCT 35.7 % Critically low 42.0-54.0 [facility] Comment on above: Performed By: #### C JOBY ####[facility] [address] [place] [address] [place]#### PERSMR ####[facility] H[address]hw[address]fksg[address] [place], [place] [address]Dr. Trevor Nichols HGB 11.7 g/dl Critically low 14.0-18.0 [facility] Comment on above: Performed By: #### Brodie HEMPHILL ####[facility] [address] [place] [address] [place]#### PERSMR ####[facility] Vduls[address] [place], [place] [address]Dr. Trevor Nichols LYMPHM # 0.72 103/ul Critically low 1.20-3.80 [facility] Comment on above: Performed By: #### Brodie HEMPHILL ####[facility] Oteqczygpf[address] [place] [address] [place]#### PERSMR ####[facility] Xyiuxkcj[address] [place], [place] [address]Dr. Trevor Nichols LYMPHM% 15.0 % Critically low 20.5-60.0 [facility] Comment on above: Performed By: #### Brodie HEMPHILL ####[facility] [address]raywepu[address] [place] [address] [place]#### PERSMR ####[facility] Xwznssbfpa[address] [place], [place] [address]Dr. Trevor Nichols MCH 34.4 pg Critically high 25.9-34.0 [facility] Comment on above: Performed By: #### C JOBY ####[facility] I[address]rg[address] [place] [address] [place]#### PERSMR ####[facility] [address]clc[address] [address]Dr. Trevor Nichols MCHC 32.8 g/dl Normal 29.9-35.2 [facility] Comment on above: Performed By: #### C JOBY ####[facility] I[address]by[address] [place] [address] [place]#### PERSMR ####[facility] Uztxhxrzft[address] [place], [place] [address]Dr. Trevor Nichols MCV 105.0 fL Critically high 80.0-94.0 [facility] Comment on above: Performed By: #### C JOBY ####[facility] Ptucopjjua[address] [place] [address] [place]#### PERSMR ####[facility] Lehzdolxvh[address] [place], [place] [address]Dr. Trevor Nichols METAMYELOCYTE # Normal [facility] Comment on above: Performed By: #### C JOBY ####[facility] [address]lds[address] [place] [address] [place]#### PERSMR ####[facility] Jsjtwstehy[address] [place], [place] [address]Dr. Trevor Nichols METAMYELOCYTE % Normal [facility] Comment on above: Performed By: #### C JOBY ####[facility] T[address]vvkkuk[address] [place] [address] [place]#### PERSMR ####[facility] Tdqvvcowxd[address] [place], [place] [address]Dr. Trevor Nichols MONOM# 1.25 103/ul Critically high 0.30-0.80 [facility] Comment on above: Performed By: #### C JOBY ####[facility] Hgfejppfyu[address] [place] [address] [place]#### PERSMR ####[facility] A[address]dceefcf[address] [place], [place] [address]Dr. Trevor Nichols MONOM% 26.0 % Critically high 1.7-12.0 [facility] Comment on above: Performed By: #### C JOBY ####[facility] [address] [address]Gerken [place]#### PERSMR ####[facility] [address] [id number]. Trevor Nichols MPV 10.5 fL Normal 9.5-13.5 [facility] Comment on above: Performed By: #### Brodie HEMPHILL ####[facility] [address]idz[address] [address]Gerken [place]#### PERSMR ####[facility] [address] [address]Dr. Trevor Nichols MYELOCYTE # Normal [facility] Comment on above: Performed By: #### Brodie HEMPHILL ####[facility] Bywbuhiubs[address] [place] [address] [place]#### PERSMR ####[facility] [address] [address]Dr. Trevor Nichols MYELOCYTE % Normal [facility] Comment on above: Performed By: #### Brodie HEMPHILL ####[facility] Yeecwnxk[address] [place] [address] [place]#### PERSMR ####[facility] Ivvtpxzymo[address] [place], [place] [address]Dr. Trevor Nichols NRBC Normal [facility] Comment on above: Performed By: #### Brodie HEMPHILL ####[facility] [address]zeuawrye[address] [place], [place] [address]Gerken [place]#### PERSMR ####[facility] Nlgidydtef[address] [place], [place] [address]Dr. Trevor Nichols PATH REVIEW INDICATED Normal [facility] Comment on above: Performed By: #### Brodie HEMPHILL ####[facility] Ptv[address] [place] [address] [place]#### PERSMR ####[facility] H[address]ux[address]xwd[address] [place], [place] [address]Dr. Trevor Nichols PLT 158 103/ul Normal 150-450 [facility] Comment on above: Performed By: #### Brodie HEMPHILL ####[facility] N[address] [place]#### PERSMR ####[facility] [address]ct[address] [id number]. Trevor Nichols RBC 3.40 106/ul Critically low 4.70-6.10 [facility] Comment on above: Performed By: #### Brodie HEMPHILL ####[facility] Uwpfqkbaoi[address] [place]#### PERSMR ####[facility] [address] [address]Dr. Trevor Nichols RDW 15.6 % Critically high 11.0-15.0 [facility] Comment on above: Performed By: #### Brodie HEMPHILL ####[facility] Wqotmjtuxu[address] [place]#### PERSMR ####[facility] [address]rkz[address] [address]Dr. Trevor Nichols SEG # 2.35 103/ul Normal 1.40-6.50 [facility] Comment on above: Performed By: #### Brodie HEMPHILL ####[facility] Xpckahzzrl[address] [place] [address] [place]#### PERSMR ####[facility] [address] [address]Dr. Trevor Nichols SEG % 49.0 % Normal 43.0-75.0 [facility] Comment on above: Performed By: #### Brodie HEMPHILL ####[facility] Mjejgdjvrx[address] [place]#### PERSMR ####[facility] [address] [address]Dr. Trevor Nichols WBC 4.8 103/ul Normal 4.0-11.0 [facility] Comment on above: Performed By: #### C JOBY ####[facility] [address] [place] [address] [place]#### PERSMR ####[facility] [address] [address]Dr. Trevor Nichols MAGNESIUMon 04-29-2021 Magnesium [Mass/Vol] 2.4 mg/dL Critically high 1.6-2.3 [facility] Comment on above: Performed By: #### B SALES MERCHANDISING SPECIALIST, MG ####[facility] Vgeripxbqu[address] [place] PERIPHERAL SMEARon Pathologist Cyto stain Nom (Cvx/Vag) [ID] DR. BHARTI PARDO Normal [facility] Comment on above: Result Comment: Kate pheral blood smear reveals isolated monocytosis with unremarkable morphology. The neutrophils and platelets are morphologically unremarkable. No atypical lymphocytes or blasts are noted. A reactive process is favored. Clinical correlation is suggested. Dr Bharti Pardo 05/01/2021 Performed By: #### C JOBY ####[facility] [address] [place] [address] [place]#### PERSMR ####[facility] [address]ch[address]nz[address] [place], [place] [address]DrJeffery Nichols VITAMIN D 25 OHon 04-29-2021 VIT D 25-OH 71.4 ng/mL Normal [facility] Comment on above: Performed By: #### V ITAD ####[facility] [address] [place] [address] [place] Marie VIT D RANGES SEE BELOW Normal [facility] Comment on above: Result Comment: <20 ng/mL Vit D deficient 20 - <30 ng/mL Vit D insufficient 30 - 100 ng/mL Vit D sufficient >100 ng/mL Potential Toxicity Performed By: #### V ITAD ####[facility] [address] [place] [address] Rose Marie POC GLUCOSE LABon 06-30-2020 Glucose [Mass/Vol] 108 mg/dL High 70-100 [facility] Comment on above: Performed By: #### 4 1000, [id number] #### [facility] [address] [facility] [facility] [place] [address], [facility] Glucose [Mass/Vol] 165 mg/dL High 70-100 [facility] Comment on above: Performed By: #### 4 1000, [id number] #### [facility] [address] C REACTIVE PROTEINon 020 CRP [Mass/Vol] 27.8 mg/L High 0.0-7.0 [facility] Comment on above: Order Comment: No: D o not add to previous draw Performed By: #### 4 1000, [id number], [id number] #### [facility] [address] [place] [address], [facility] CBC COMPLETE BLOOD COUNTon 08-29-2019 Erythrocyte distribution width (RBC) [Ratio] 14.3 % Normal 11.5-15.0 The [facility] Comment on above: Order Comment: No: D o not add to previous draw Performed By: #### 4 1000, 24951 #### [facility] [address] [place] [address], [facility] Hematocrit (Bld) [Volume fraction] 34.7 % Low 39.0-50.0 [facility] Comment on above: Order Comment: No: D o not add to previous draw Performed By: #### 4 1000, 47653 #### [facility] [address] [facility] [address], [facility] Hemoglobin (Bld) [Mass/Vol] 11.6 g/dL Low 13.0-17.0 [facility] Comment on above: Order Comment: No: D o not add to previous draw Performed By: #### 4 1000, 94873 #### [facility] [address] [place] [address], [facility] MCH (RBC) [Entitic mass] 35.5 pg High 27.0-33.0 [facility] Comment on above: Order Comment: No: D o not add to previous draw Performed By: #### 4 1000, 58845 #### [facility] [address] [place] [address], [facility] MCHC (RBC) [Mass/Vol] 33.4 g/dL Normal 32.0-35.0 [facility] Comment on above: Order Comment: No: D o not add to previous draw Performed By: #### 4 1000, 83941 #### [facility] [address] [place] [address], [facility] MCV (RBC) [Entitic vol] 106.1 fL High 82.0-98.0 [facility] Comment on above: Order Comment: No: D o not add to previous draw Performed By: #### 4 1000, 94721 #### [facility] [address] [place] [address], [facility] Nucleated RBC/100 WBC (Bld) [Ratio] 0 % Normal 0-0 [facility] Comment on above: Order Comment: No: D o not add to previous draw Performed By: #### 4 1000, 02163 #### [facility] [address] [facility] [place] [place] [address], [facility] PLAT CNT 150 10*3/uL Normal 150-400 [facility] Comment on above: Order Comment: No: D o not add to previous draw Performed By: #### 4 1000, 15807 #### [facility] [address] [facility] [place] [place] [address], [facility] RBC (Bld) [#/Vol] 3.27 10*6/uL Low 4.20-5.70 [facility] Comment on above: Order Comment: No: D o not add to previous draw Performed By: #### 4 1000, 26977 #### [facility] [address] [place] [place] [address], [facility] WBC (Bld) [#/Vol] 5.86 10*3/uL Normal 4.00-10.60 [facility] Comment on above: Order Comment: No: D o not add to previous draw Performed By: #### 4 1000, 89042 #### [facility] [address] CPKon 06-29-2020 CK [Catalytic activity/Vol] 45 U/L Normal 30-223 [facility] Comment on above: Order Comment: Unkno wn Performed By: #### 9 9909, 99489, 65422, 62160 #### [address] BRAIN WO CONTRASTon 06-29 CT BRAIN WO CONTRAST [facility] Department of Radiology [address] [place] [address] Patient Name: CHIKI JUAREZ : 1945 Sex: M Age: Race: White Pt. Location: [id number] Patient Status: I Ordered Date: 06/29/2020 9:20:00 [...] region. Electronically signed: Aleta Armas. Transcribed by: [email or web address], User Resident: Electronically Signed by: ALETA ARMAS @ 06/29/2020 07:16 PM Normal [facility] Comment on above: Order Comment: No: D o not add to previous draw D DIMER TESTon 06-29-2020 D-DIMER TEST 1.44 mcg/mL FEU High 0.27-0.49 [facility] Comment on above: Order Comment: No: D o not add to previous draw Result Comment: D-Di fide values of less than 0.50 ug/ml (FEU) are considered to be a negative predictor of thrombosis. However, the D-Dimer result should be used in conjunction with pretest probability and should not be used alone to diagnose a thrombotic event. Performed By: #### 4 1000, 49596, 57701 #### [facility] [address] [facility]. [address] FERRITINon 06-29-2020 Ferritin [Mass/Vol] 271 ng/mL Normal 24-336 [facility] Comment on above: Order Comment: Unkno wn Performed By: #### 9 9909, 80582, 31764, 40463 #### [facility] [address] [facility] [address] LDH BLOODon 06-29-2020 LDH 148 Units/L Normal 140-271 [facility] Comment on above: Order Comment: Unkno wn Performed By: #### 9 9909, 09938, 62965, 36331 #### [facility] [address] [facility]. [address] LIPID PROFILEon 06-29-2020 Cholesterol [Mass/Vol] 176 mg/dL Normal 120-200 [facility] Comment on above: Order Comment: No: D o not add to previous draw Result Comment: CHOL ESTEROL REFERENCE RANGE: 20 YEARS AND OLDER CARDIOVASCULAR RISK Less than 200 mg/dl Low Risk 200 to 239 mg/dl Borderline Risk 240 mg/dl and greater High Risk Performed By: #### 4 1000, , 88561 #### [facility] [address] [place] [address], [place] Cholesterol in HDL [Mass/Vol] 39 mg/dL Normal 23-92 [facility] Comment on above: Order Comment: No: D o not add to previous draw Result Comment: Slig ht variation in normal range could be due to gender and/or age. HDL CHOLESTEROL REFERENCE RANGE: 20 years and older Cardiovascular Risk > or =60 mg/dL Desirable 40 TO 59 mg/dL Low Risk <40 mg/dL High Risk Performed By: #### 4 1000, , 49705 #### [facility] [address] [place] [address], [place] Cholesterol in LDL [Mass/Vol] 100 mg/dL Normal 0-130 [facility] Comment on above: Order Comment: No: D o not add to previous draw Result Comment: LDL IS A CALCULATION LDL IS ONLY VALID IF THE TRIG IS LESS THAN 400. Performed By: #### 4 1000, , 54807 #### [facility] [address] [facility] [place] [address], [place] Cholesterol.total/Ch olesterol in HDL [Mass ratio] 4.5 {ratio} Normal 0.0-4.5 [facility] Comment on above: Order Comment: No: D o not add to previous draw Performed By: #### 4 1000, , 97423 #### [facility] [address] [place] [address], [place] NON-HDL CHOLESTEROL 137 mg/dL Normal [facility] Comment on above: Order Comment: No: D o not add to previous draw Performed By: #### 4 1000, , 72298 #### [facility] [address] [place] [address], [place] Triglyceride [Mass/Vol] 187 mg/dL High 40-149 [facility] Comment on above: Order Comment: No: D o not add to previous draw Result Comment: TRIG LYCERIDE REFERENCE RANGE: 20 YEARS AND OLDER CARDIOVASCULAR RISK LESS THAN 150 mg/dl LOW RISK 150 TO 199 mg/dl BORDERLINE RISK 200 mg/dl AND GREATER HIGH RISK Performed By: #### 4 1000, 08855, 22067 #### [facility] [address] [place] [address], [facility] VLDL CHOL 37 mg/dL Normal 0-40 [facility] Comment on above: Order Comment: No: D o not add to previous draw Performed By: #### 4 1000, 96808, 81129 #### [facility] [address] [place] [address], [facility] LIVER BATTERYon 06-29-2020 Albumin [Mass/Vol] 3.4 g/dL Low 3.5-5.7 [facility] Comment on above: Order Comment: Unkno wn Performed By: #### 9 9909, 49314, 90963, 30099 #### [facility] [address] [place] [address], [place] ALKALINE PHOSPH 60 IU/L Normal 34-104 [facility] Comment on above: Order Comment: Unkno wn Performed By: #### 9 9909, 32879, 76245, 13436 #### [facility] [address] [place] [address], [place] ALT [Catalytic activity/Vol] 8 U/L Normal 7-52 [facility] Comment on above: Order Comment: Unkno wn Performed By: #### 9 9909, 13532, 47460, 27127 #### [facility] [address] [place] [address], [place] AST [Catalytic activity/Vol] 11 U/L Low 13-39 [facility] Comment on above: Order Comment: Unkno wn Performed By: #### 9 9909, 99730, 50015, 33946 #### [facility] [address] [place] [address], [place] Bilirubin [Mass/Vol] 0.5 mg/dL Normal 0.3-1.0 [facility] Comment on above: Order Comment: Unkno wn Performed By: #### 9 9909, 50076, 80252, 03053 #### [facility] [address] [place] [address], [place] Bilirubin.direct [Mass/Vol] 0.1 mg/dL Normal 0.0-0.2 [facility] Comment on above: Order Comment: Unkno wn Performed By: #### 9 9909, 33738, 65292, 46144 #### [facility] [address] [place] [address], [place] Protein [Mass/Vol] 5.8 g/dL Low 6.0-8.3 [facility] Comment on above: Order Comment: Unkno wn Performed By: #### 9 9909, 71711, 72710, 97414 #### [facility] [address] [place] [address], [place] POC GLUCOSE LABon 06-29-2020 Glucose [Mass/Vol] 112 mg/dL High 70-100 [facility] Comment on above: Performed By: #### 4 1000, 51712 #### [facility] [address] [place] [address], [place] Glucose [Mass/Vol] 105 mg/dL High 70-100 [facility] Comment on above: Performed By: #### 4 1000, 52689 #### [facility] [address] [place] [address], [place] Glucose [Mass/Vol] 94 mg/dL Normal 70-100 [facility] Comment on above: Performed By: #### 4 1000, 58885, 67492 #### [facility] [address] [place] [address], [place] Glucose [Mass/Vol] 121 mg/dL High 70-100 [facility] Comment on above: Performed By: #### 4 1000, 91646 #### [address] PORTABLE CHEST 1 VIEWon 06-17 PORTABLE CHEST 1 VIEW [facility] Department of Radiology [address] [place] [id number] Patient Name: CHIKI JUAREZ : 1945 Sex: M Age: Race: White Pt. Location: [id number] Patient Status: I Ordered Date: 06/29/2020 5:45:00 [...] placement. Electronically signed: Aleta Armas. Transcribed by: [email or web address], User Resident: Electronically Signed by: ALETA ARMAS @ 06/29/2020 08:15 PM Normal [facility] Comment on above: Order Comment: No: D o not add to previous draw BASIC METABOLIC PANELon 11 Calcium [Mass/Vol] 8.8 mg/dL Normal 8.6-10.3 [facility] Comment on above: Order Comment: No: D o not add to previous draw Performed By: #### 4 1000, 12123, 78335 #### [facility] [address] [place] [address], [place] Chloride [Moles/Vol] 102 mmol/L Normal 98-107 [facility] Comment on above: Order Comment: No: D o not add to previous draw Performed By: #### 4 1000, 59047, 21495 #### [facility] [address] [place] [address], [place] CO2 [Moles/Vol] 24 mmol/L Normal 21-31 [facility] Comment on above: Order Comment: No: D o not add to previous draw Performed By: #### 4 1000, 64651, 32867 #### [facility] [address] [place] [address], [place] Creatinine [Mass/Vol] 1.31 mg/dL High 0.70-1.30 [facility] Comment on above: Order Comment: No: D o not add to previous draw Performed By: #### 4 1000, 83892, 51961 #### [facility] [address] [place] [address], [place] GFR/1.73 sq M predicted among blacks MDRD (S/P/Bld) [Vol rate/Area] mL/min/{1.73_m2} Normal >60 [facility] Comment on above: Order Comment: No: D o not add to previous draw Result Comment: Calc ulation may not be valid for patients over 70 years Performed By: #### 4 1000, 10231, 41410 #### [facility] [address] [place] [address], [place] GFR/1.73 sq M predicted among non-blacks MDRD (S/P/Bld) [Vol rate/Area] 54 ml/min/1.73sq m Abnormal >60 [facility] Comment on above: Order Comment: No: D o not add to previous draw Result Comment: Calc ulation may not be valid for patients over 70 years Performed By: #### 4 1000, 08579, 64635 #### [facility] [address] [place] [address], [place] Glucose [Mass/Vol] 96 mg/dL Normal 70-100 [facility] Comment on above: Order Comment: No: D o not add to previous draw Performed By: #### 4 1000, 16765, 52237 #### [facility] [address] [place] [address], [place] Potassium [Moles/Vol] 4.3 mmol/L Normal 3.5-5.1 [facility] Comment on above: Order Comment: No: D o not add to previous draw Performed By: #### 4 1000, 81988, 60755 #### [facility] [address] [place] [address], [place] Sodium [Moles/Vol] 133 mmol/L Low 136-145 [facility] Comment on above: Order Comment: No: D o not add to previous draw Performed By: #### 4 1000, 25916, 26981 #### [facility] [address] [place] [address], [place] Urea nitrogen [Mass/Vol] 26 mg/dL High 7-25 [facility] Comment on above: Order Comment: No: D o not add to previous draw Performed By: #### 4 1000, 29194, 59151 #### [facility] [address] [place] [address], [place] CBC COMPLETE BLOOD COUNTon 08-28-2019 Erythrocyte distribution width (RBC) [Ratio] 14.4 % Normal 11.5-15.0 [facility] Comment on above: Order Comment: No: D o not add to previous draw Performed By: #### 4 1000, , 81658 #### [facility] [address] [place] [address], [facility] Hematocrit (Bld) [Volume fraction] 35.2 % Low 39.0-50.0 [facility] Comment on above: Order Comment: No: D o not add to previous draw Performed By: #### 4 1000, , 14914 #### [facility] [address] [place] [id number], [facility] Hemoglobin (Bld) [Mass/Vol] 11.8 g/dL Low 13.0-17.0 [facility] Comment on above: Order Comment: No: D o not add to previous draw Performed By: #### 4 1000, , #### [facility] [address] [place] [id number], [facility] MCH (RBC) [Entitic mass] 35.5 pg High 27.0-33.0 [facility] Comment on above: Order Comment: No: D o not add to previous draw Performed By: #### 4 1000, , #### [facility] [address] [place] [address], [facility] MCHC (RBC) [Mass/Vol] 33.5 g/dL Normal 32.0-35.0 [facility] Comment on above: Order Comment: No: D o not add to previous draw Performed By: #### 4 1000, , 68052 #### [facility] [address] [place] [id number], [facility] MCV (RBC) [Entitic vol] 106.0 fL High 82.0-98.0 [facility] Comment on above: Order Comment: No: D o not add to previous draw Performed By: #### 4 1000, , 34710 #### [facility] [address] [place] [id number], [facility] Nucleated RBC/100 WBC (Bld) [Ratio] 0 % Normal 0-0 [facility] Comment on above: Order Comment: No: D o not add to previous draw Performed By: #### 4 1000, 41167, 30774 #### [facility] [address] [facility] [place] [address], [facility] PLAT CNT 158 10*3/uL Normal 150-400 [facility] Comment on above: Order Comment: No: D o not add to previous draw Performed By: #### 4 1000, 21897, 38901 #### [facility] [address] [facility] [place] [address], [facility] RBC (Bld) [#/Vol] 3.32 10*6/uL Low 4.20-5.70 [facility] Comment on above: Order Comment: No: D o not add to previous draw Performed By: #### 4 1000, 89715, 68161 #### [facility] [address] [facility] [place] [address], [facility] WBC (Bld) [#/Vol] 7.25 10*3/uL Normal 4.00-10.60 [facility] Comment on above: Order Comment: No: D o not add to previous draw Performed By: #### 4 1000, , 40806 #### [facility] [address] Cardiovascular Lab Reporton 06-28-2020 Cardiovascular Lab Report [facility] Patient Name: Chiki Juarez [facility] MR #: [id number] Physician: Connor Carrera MD Department of Service Date: 06/28/2020 Medicine Birthdate: 1945 Division of Room #: [id number] Cardiology Adult Cardiovascular Services [facility] [address] [place] [address] Cardiovascular Laboratory Report DUAL CHAMBER PACEMAKER IMPLANT PROCEDURE NOTE DATE OF PROCEDURE: 06/28/2020 PERFORMING PHYSICIAN: Dr. Connor Carrera CONSENT: Patient LOCATION: EP Lab PROCEDURE PERFORMED: 1. Implantation of pacemaker ([employer]) 2. Ultrasound guided venous access INDICATIONS: [...] using modified seldinger technique using a 5 [place] micro-puncture needle on two occasions and 0.24 [...] was made enough for the device. 6 [place] Safesheaths were placed over the wire. An active fixation [place] [employer] pacing lead was then delivered through the 6Fsheath to the right ventricle. After confirmation of lead position on orthogonal views ([employer] and [place]) to confirm septal position, the screw was activated, and the lead was placed in the right ventricular mid cavity towards the septum. After confirmation of good sensing parameters, injury pattern and pacing thresholds, 10V pacing was done and no diaphragmatic stimulation was noted. It was then secured in the pocket using three 1-0 Silk sutures. Then an active fixation [employer] lead was delivered through the 6Fsheath to the right atrial appendage. After confirmation of lead position on orthogonal views ([place] and [place]), the screw was activated. After confirmation of [...] immediate procedural complications were noted. Device info: Foodlve Accolade MRI EL Model# L331 Serial# [id number] RA lead: Model# INGEVITY 7740 (45cms) Serial# [id number] Sensin.7mV Threshold: 0.9V@0.4ms Impedance: 666Ohms RV lead: Model# INGEVITY [id number](52cms) Serial# [id number] Sensin.1mV Threshold: 0.4V@0.4ms Impedance: 746Ohms POST PROCEDURE [...] Carrera MD Date Trans: 06/28/2020 03:33 P/alondra [id number] cc: Will Sherwood M.D. [address] [place] [phone] Normal [facility] MAGNESIUM BLOODon 06-28-2020 Magnesium [Mass/Vol] 2.1 mg/dL Normal 1.9-2.7 [facility] Comment on above: Order Comment: No: D o not add to previous draw Performed By: #### 4 1000, 77667, 44574 #### [facility] [address] [place] [address], [place] PHOSPHORUS BLOODon 0 Phosphate [Mass/Vol] 3.7 mg/dL Normal 2.5-5.0 [facility] Comment on above: Order Comment: No: D o not add to previous draw Performed By: #### 4 1000, 51997, 39800 #### [facility] [address] [place] [address], [place] POC GLUCOSE LABon 06-28-2020 Glucose [Mass/Vol] 93 mg/dL Normal 70-100 [facility] Comment on above: Performed By: #### 4 1000, 87494 #### [facility] [address] [place] [address], [place] Glucose [Mass/Vol] 90 mg/dL Normal 70-100 [facility] Comment on above: Performed By: #### 4 1000, 23146 #### [facility] [address] [place] [address], [place] Glucose [Mass/Vol] 97 mg/dL Normal 70-100 [facility] Comment on above: Performed By: #### 4 1000, 84816 #### [facility] [address] [place] [address], [place] Glucose [Mass/Vol] 99 mg/dL Normal 70-100 [facility] Comment on above: Performed By: #### 4 1000, 12825 #### [facility] [address] [place] [address], [place] APTTon 06-27-2020 aPTT Coag (Bld) [Time] 34.8 s Normal 25.0-35.0 [facility] Comment on above: Order Comment: [...] THIS PURPOSE. Performed By: #### 4 1000, 77245 #### [facility] [address] BASIC METABOLIC PANELon 11-1 Calcium [Mass/Vol] 9.1 mg/dL Normal 8.6-10.3 [facility] Comment on above: Order Comment: No: D o not add to previous draw Performed By: #### 4 1000, 47201, 41803 #### [facility] [address] [place] [address], [facility] Chloride [Moles/Vol] 104 mmol/L Normal 98-107 [facility] Comment on above: Order Comment: No: D o not add to previous draw Performed By: #### 4 1000, 84791, 39776 #### [facility] [address] [place] [address], [facility] CO2 [Moles/Vol] 23 mmol/L Normal 21-31 [facility] Comment on above: Order Comment: No: D o not add to previous draw Performed By: #### 4 1000, 82523, 49772 #### [facility] [address] [place] [address], [facility] Creatinine [Mass/Vol] 1.21 mg/dL Normal 0.70-1.30 [facility] Comment on above: Order Comment: No: D o not add to previous draw Performed By: #### 4 1000, 99261, 71536 #### [facility] [address] [place] [address], [facility] GFR/1.73 sq M predicted among blacks MDRD (S/P/Bld) [Vol rate/Area] mL/min/{1.73_m2} Normal >60 [facility] Comment on above: Order Comment: No: D o not add to previous draw Result Comment: Calc ulation may not be valid for patients over 70 years Performed By: #### 4 1000, , 87140 #### [facility] [address] [place] [address], [place] GFR/1.73 sq M predicted among non-blacks MDRD (S/P/Bld) [Vol rate/Area] 59 ml/min/1.73sq m Abnormal >60 [facility] Comment on above: Order Comment: No: D o not add to previous draw Result Comment: Calc ulation may not be valid for patients over 70 years Performed By: #### 4 1000, , 20180 #### [facility] [address] [place] [address], [place] Glucose [Mass/Vol] 132 mg/dL High 70-100 [facility] Comment on above: Order Comment: No: D o not add to previous draw Performed By: #### 4 1000, , 74701 #### [facility] [address] [place] [address], [place] Potassium [Moles/Vol] 5.2 mmol/L High 3.5-5.1 [facility] Comment on above: Order Comment: No: D o not add to previous draw Performed By: #### 4 1000, , 98317 #### [facility] [address] [place] [address], [place] Sodium [Moles/Vol] 135 mmol/L Low 136-145 [facility] Comment on above: Order Comment: No: D o not add to previous draw Performed By: #### 4 1000, , 57381 #### [facility] [address] [place] [address], [place] Urea nitrogen [Mass/Vol] 21 mg/dL Normal 7-25 [facility] Comment on above: Order Comment: No: D o not add to previous draw Performed By: #### 4 1000, , 92278 #### [facility] [address] [place] [address], [facility] C REACTIVE PROTEINon 020 CRP [Mass/Vol] 40.5 mg/L High 0.0-7.0 [facility] Comment on above: Order Comment: No: D o not add to previous draw Performed By: #### 4 1000, 67019, 43881 #### [facility] [address] [place] [address], [facility] CBC W/DIFFon 06-27-2020 ABS BASOPHILS 0.0 10*3/uL Normal 0.0-0.2 [facility] Comment on above: Order Comment: No: D o not add to previous draw Performed By: #### 4 1000, 58561 #### [facility] [address] [place] [address], [facility] ABS NEUTROPHILS 4.5 10*3/uL Normal 1.6-7.6 [facility] Comment on above: Order Comment: No: D o not add to previous draw Performed By: #### 4 1000, 75038 #### [facility] [address] [facility] [place] [address], [facility] Basophils/100 WBC (Bld) 0.0 % Normal 0.0-1.0 [facility] Comment on above: Order Comment: No: D o not add to previous draw Performed By: #### 4 1000, 94022 #### [facility] [address] [facility] [place] [address], [facility] Eosinophils (Bld) [#/Vol] 0.0 10*3/uL Normal 0.0-0.5 [facility] Comment on above: Order Comment: No: D o not add to previous draw Performed By: #### 4 1000, [id number] #### [facility] [address] [place] [address], [facility] Eosinophils/100 WBC (Bld) 0.0 % Normal 0.0-6.0 [facility] Comment on above: Order Comment: No: D o not add to previous draw Performed By: #### 4 1000, 92576 #### [facility] [address] [place] [address], [facility] Erythrocyte distribution width (RBC) [Ratio] 14.1 % Normal 11.5-15.0 [facility] Comment on above: Order Comment: No: D o not add to previous draw Performed By: #### 4 1000, 79223 #### [facility] [address] [place] [address], [facility] GIANT PLATELETS Present Normal [facility] Comment on above: Order Comment: No: D o not add to previous draw Performed By: #### 4 1000, 91278 #### [facility] [address] [place] [address], [facility] Hematocrit (Bld) [Volume fraction] 36.0 % Low 39.0-50.0 [facility] Comment on above: Order Comment: No: D o not add to previous draw Performed By: #### 4 1000, 57496 #### [facility] [address] [place] [address], [facility] Hemoglobin (Bld) [Mass/Vol] 11.8 g/dL Low 13.0-17.0 [facility] Comment on above: Order Comment: No: D o not add to previous draw Performed By: #### 4 1000, 36531 #### [facility] [address] [facility] [place] [address], [facility] Lymphocytes (Bld) [#/Vol] 0.5 10*3/uL Low 1.2-4.0 [facility] Comment on above: Order Comment: No: D o not add to previous draw Performed By: #### 4 1000, 25701 #### [facility] [address] [place] [id number], [facility] Lymphocytes/100 WBC (Bld) 8.2 % Low 20.0-45.0 [facility] Comment on above: Order Comment: No: D o not add to previous draw Performed By: #### 4 1000, 65661 #### [facility] [address] [place] [address], [facility] MCH (RBC) [Entitic mass] 35.2 pg High 27.0-33.0 [facility] Comment on above: Order Comment: No: D o not add to previous draw Performed By: #### 4 1000, 93232 #### [facility] [address] [place] [address], [facility] MCHC (RBC) [Mass/Vol] 32.8 g/dL Normal 32.0-35.0 [facility] Comment on above: Order Comment: No: D o not add to previous draw Performed By: #### 4 1000, 46120 #### [facility] [address] [place] [address], [facility] MCV (RBC) [Entitic vol] 107.5 fL High 82.0-98.0 [facility] Comment on above: Order Comment: No: D o not add to previous draw Performed By: #### 4 1000, 61958 #### [facility] [address] [facility] [place] [address], [facility] METAMYELO 3.7 % High 0.0-0.0 [facility] Comment on above: Order Comment: No: D o not add to previous draw Performed By: #### 4 1000, 20919 #### [facility] [address] [facility] [place] [address], [facility] Monocytes (Bld) [#/Vol] 0.5 10*3/uL Normal 0.1-1.0 [facility] Comment on above: Order Comment: No: D o not add to previous draw Performed By: #### 4 1000, 79171 #### [facility] [address] [place] [address], [facility] MONOS 9.2 % Normal 5.0-12.0 [facility] Comment on above: Order Comment: No: D o not add to previous draw Performed By: #### 4 1000, 58816 #### [facility] [address] [place] [address], [facility] MYELOS 3.7 % High 0.0-0.0 [facility] Comment on above: Order Comment: No: D o not add to previous draw Performed By: #### 4 1000, 38380 #### [facility] [address] [place] [address], [place] Neutrophils/100 WBC (Bld) 75.2 % High 40.0-72.0 [facility] Comment on above: Order Comment: No: D o not add to previous draw Performed By: #### 4 1000, 49027 #### [facility] [address] [place] [address], [place] NRBC SCAN Present Normal [facility] Comment on above: Order Comment: No: D o not add to previous draw Performed By: #### 4 1000, 11787 #### [facility] [address] [place] [address], [place] Nucleated RBC/100 WBC (Bld) [Ratio] 0 % Normal 0-0 [facility] Comment on above: Order Comment: No: D o not add to previous draw Performed By: #### 4 1000, 43736 #### [facility] [address] [place] [address], [place] PLAT CNT 153 10*3/uL Normal 150-400 [facility] Comment on above: Order Comment: No: D o not add to previous draw Performed By: #### 4 1000, 66145 #### [facility] [address] [place] [address], [place] RBC (Bld) [#/Vol] 3.35 10*6/uL Low 4.20-5.70 [facility] Comment on above: Order Comment: No: D o not add to previous draw Performed By: #### 4 1000, 56887 #### [facility] [address] [place] [address], [place] WBC (Bld) [#/Vol] 5.92 10*3/uL Normal 4.00-10.60 [facility] Comment on above: Order Comment: No: D o not add to previous draw Performed By: #### 4 1000, 88307 #### [facility] [address] [place] [address], [facility] CPKon 06-27-2020 CK [Catalytic activity/Vol] 90 U/L Normal 30-223 [facility] Comment on above: Order Comment: No: D o not add to previous draw Performed By: #### 4 1000, 38843, 80907 #### [facility] [address] [place] [address], [facility] CTA HEADon 06-27-2020 CTA HEAD [facility] Department of Radiology [address] [place] [id number] Patient Name: CHIKI JUAREZ : 1945 Sex: M Age: Race: White Pt. Location: [id number] Patient Status: I Ordered Date: 06/27/2020 9:05:00 [...] achievable Electronically signed: Ashu García. Transcribed by: [email or web address], User Resident: Electronically Signed by: ASHU GARCÍA @ 06/27/2020 01:12 PM Normal [facility] Comment on above: Order Comment: No: D o not add to previous draw CTA NECKon 06-27-2020 CTA NECK [facility] Department of Radiology [address] [place] [id number] Patient Name: CHIKI JUAREZ : 1945 Sex: M Age: Race: White Pt. Location: [id number] Patient Status: I Ordered Date: 06/27/2020 9:05:00 [...] viewed on a separate workstation. The [place] Symptomatic Carotid Endarterectomy Trial (NASCET) method for [...] achievable Electronically signed: Ashu García. Transcribed by: [email or web address], User Resident: Electronically Signed by: ASHU GARCÍA @ 06/27/2020 01:08 PM Normal [facility] D DIMER TESTon 06-27-2020 D-DIMER TEST 0.39 mcg/mL FEU Normal 0.27-0.49 [facility] Comment on above: Order Comment: No: D o not add to previous draw Result Comment: D-Di fide values of less than 0.50 ug/ml (FEU) are considered to be a negative predictor of thrombosis. However, the D-Dimer result should be used in conjunction with pretest probability and should not be used alone to diagnose a thrombotic event. Performed By: #### 4 1000, 43702 #### [facility] [address] [place] [address], [facility] FERRITINon 06-27-2020 Ferritin [Mass/Vol] 250 ng/mL Normal 24-336 [facility] Comment on above: Order Comment: No: D o not add to previous draw Performed By: #### 4 1000, 42354, 63655 #### [facility] [address] HEMOGLOBIN A1Con 06-27-2020 HbA1c (Bld) [Mass fraction] 134 mmol/L Normal [facility] Comment on above: Order Comment: No: D o not add to previous draw Performed By: #### 4 1000, 81111, 89687 #### [facility] [address] [place] [address], [facility] HbA1c (Bld) [Mass fraction] 6.3 % High 4.0-6.0 [facility] Comment on above: Order Comment: No: D o not add to previous draw Performed By: #### 4 1000, 32819, 74807 #### [facility] [address] [place] [address], [facility] LDH BLOODon 06-27-2020 LDH 213 Units/L Normal 140-271 [facility] Comment on above: Order Comment: No: D o not add to previous draw Performed By: #### 4 1000, , 06839 #### [facility] [address] [place] [address], [facility] LIVER BATTERYon 06-27-2020 Albumin [Mass/Vol] 3.5 g/dL Normal 3.5-5.7 [facility] Comment on above: Order Comment: No: D o not add to previous draw Performed By: #### 4 1000, , 88907 #### [facility] [address] [place] [address], [place] ALKALINE PHOSPH 62 IU/L Normal 34-104 [facility] Comment on above: Order Comment: No: D o not add to previous draw Performed By: #### 4 1000, , 16815 #### [facility] [address] [place] [address], [place] ALT [Catalytic activity/Vol] 11 U/L Normal 7-52 [facility] Comment on above: Order Comment: No: D o not add to previous draw Performed By: #### 4 1000, , 22474 #### [facility] [address] [place] [address], [place] AST [Catalytic activity/Vol] 10 U/L Low 13-39 [facility] Comment on above: Order Comment: No: D o not add to previous draw Performed By: #### 4 1000, , 81537 #### [facility] [address] [place] [address], [place] Bilirubin [Mass/Vol] 0.5 mg/dL Normal 0.3-1.0 [facility] Comment on above: Order Comment: No: D o not add to previous draw Performed By: #### 4 1000, , 80521 #### [facility] [address] [place] [address], [place] Bilirubin.direct [Mass/Vol] 0.2 mg/dL Normal 0.0-0.2 [facility] Comment on above: Order Comment: No: D o not add to previous draw Performed By: #### 4 1000, , 93938 #### [facility] [address] [place] [address], [place] Protein [Mass/Vol] 6.0 g/dL Normal 6.0-8.3 [facility] Comment on above: Order Comment: No: D o not add to previous draw Performed By: #### 4 1000, 21226, 37700 #### [facility] [address] [place] [address], [facility] MAGNESIUM BLOODon 06-27-2020 Magnesium [Mass/Vol] 2.3 mg/dL Normal 1.9-2.7 [facility] Comment on above: Order Comment: No: D o not add to previous draw Performed By: #### 4 1000, 01004, 58318 #### [facility] [address] [place] [address], [facility] POC GLUCOSE LABon 06-27-2020 Glucose [Mass/Vol] 103 mg/dL High 70-100 [facility] Comment on above: Performed By: #### 4 1000, 98204 #### [facility] [address] [place] [address], [facility] Glucose [Mass/Vol] 100 mg/dL Normal 70-100 [facility] Comment on above: Performed By: #### 4 1000, 00029 #### [facility] [address] [place] [address], [facility] POTASSIUM BLOODon 06-27-2020 Potassium [Moles/Vol] 4.5 mmol/L Normal 3.5-5.1 [facility] Comment on above: Order Comment: No: D o not add to previous draw Performed By: #### 4 1406 #### [facility] [address] [place] [address], [facility] PROTHROMBIN TIMEon 0 INR Coag (PPP) [Relative time] 1.05 {INR} Normal 0.91-1.16 [facility] Comment on above: Order Comment: [...] CHEST 1995;[id number]. Performed By: #### 4 1000, 08709 #### [facility] [address] PT Coag (PPP) [Time] 13.7 s Normal 12.3-14.8 [facility] Comment on above: Order Comment: No: D o not add to previous draw Result Comment: ALL RESULTS MUST BE INTERPRETED WITH RESPECT TO BLOOD DRAWING ARTIFACT OR DILUTION ERROR OF ANTICOAGULANT AT THE TIME OF SAMPLING. Performed By: #### 4 1000, 22753 #### [facility] [address] TSH3 WITH REFLEX FT4on 06-27 TSH 3RD GENERATION 0.86 uIU/mL Normal 0.34-5.60 [facility] Comment on above: Performed By: #### 4 1000, 34129, 20414 #### [facility] [address] [facility]. [address] VITAMIN B12on 06-27-2020 Cobalamin (Vitamin B12) [Mass/Vol] 3006 pg/mL High 180-914 [facility] Comment on above: Result Comment: REFE RENCE RANGES: 180-914 pg/mL Normal 145-179 pg/mL Indeterminate <145 pg/mL Deficient Performed By: #### 4 1000, 65859, 32141 #### [facility] [address] [facility] [place] [address], [facility] PHOSPHORUS BLOODon 0 Phosphate [Mass/Vol] 3.2 mg/dL Normal 2.5-5.0 [facility] Comment on above: Order Comment: No: D o not add to previous draw Performed By: #### 4 1000, 86271 #### [facility] [address] [facility] [place] [address], [facility] TROPONIN-Ion 06-26-2020 Troponin I.cardiac [Mass/Vol] 0.01 ng/mL Normal 0.00-0.04 [facility] Comment on above: Order Comment: No: D o not add to previous draw Result Comment: REFE RENCE RANGES: 0.00 - 0.04 ng/ml NORMAL 0.05 - 0.50 ng/ml INDETERMINATE > 0.50 ng/ml CONSISTENT WITH AN M.I. Performed By: #### 4 1000, 52164 #### [facility] [address] Vital Signs Date Time Vital Sign Value Performing Clinician Facility 11-21-2024 15:05-0400 Body mass index (BMI) [Ratio] 32.52 kg/m2 Tyler Draper MD Work Phone: [facility] 11-21-2024 15:05-0400 Body temperature 97.7 [degF] Tyler Draper MD Work Phone: [facility] 11-21-2024 15:05-0400 Body weight 97 kg Tyler Draper MD Work Phone: [facility] 11-21-2024 15:05-0400 Diastolic blood pressure 65 mm[Hg] Tyler Draper MD Work Phone: [facility] 11-21-2024 15:05-0400 Heart rate 83 /min Tyler Draper MD Work Phone: [facility] 11-21-2024 15:05-0400 Respiratory rate 24 /min Tyler Draper MD Work Phone: [facility] 11-21-2024 15:05-0400 SaO2% (BldA) [Mass fraction] 90 % Tyler Draper MD Work Phone: [facility] 11-21-2024 15:05-0400 Systolic blood pressure 122 mm[Hg] Tyler Draper MD Work Phone: [facility] 06-20-2024 08:42-0500 Body height 162.6 cm Connor Biedenbach DO Work Phone: [facility] 06-20-2024 08:42-0500 Body mass index (BMI) [Ratio] 37.76 kg/m2 Connor Biedenbach DO Work Phone: [facility] 06-20-2024 08:42-0500 Body weight 99.79 kg Connor Biedenbach DO Work Phone: [facility] 06-09-2024 09:43-0400 Body height 162.6 cm Connor Biedenbach DO Work Phone: [facility] 06-09-2024 09:43-0400 Body mass index (BMI) [Ratio] 37.76 kg/m2 Connor Biedenbach DO Work Phone: [facility] 06-09-2024 09:43-0400 Body weight 99.79 kg Connor Biedenbach DO Work Phone: [facility] 06-06-2024 13:36-0400 Body mass index (BMI) [Ratio] 33.83 kg/m2 Tyler Draper MD Work Phone: [facility] 06-06-2024 13:36-0400 Body temperature 97 [degF] Tyler Draper MD Work Phone: [facility] 06-06-2024 13:36-0400 Body weight 100.9 kg Tyler Draper MD Work Phone: [facility] 06-06-2024 13:36-0400 Diastolic blood pressure 59 mm[Hg] Tyler Draper MD Work Phone: [facility] 06-06-2024 13:36-0400 Heart rate 74 /min Tyler Draper MD Work Phone: [facility] 06-06-2024 13:36-0400 Respiratory rate 18 /min Tyler Draper MD Work Phone: [facility] 06-06-2024 13:36-0400 SaO2% (BldA) [Mass fraction] 90 % Tyler Draper MD Work Phone: [facility] 06-06-2024 13:36-0400 Systolic blood pressure 109 mm[Hg] Tyler Draper MD Work Phone: [facility] 06-01-2024 16:00-0400 Diastolic blood pressure 64 mm[Hg] MD Pito Patterson Work Phone: [facility] 06-01-2024 16:00-0400 Heart rate 75 /min MD Pito Patterson Work Phone: [facility] 06-01-2024 16:00-0400 Inhaled oxygen concentration 4 % MD Pito Patterson Work Phone: [facility] 06-01-2024 16:00-0400 Respiratory rate 20 /min MD Pito Patterson Work Phone: [facility] 06-01-2024 16:00-0400 SaO2% (BldA) [Mass fraction] 99 % MD Pito Patterson Work Phone: [facility] 06-01-2024 16:00-0400 Systolic blood pressure 121 mm[Hg] MD Pito Patterson Work Phone: [facility] 06-01-2024 13:16-0400 Inhaled oxygen flow rate 4 L/min MD Pito Patterson Work Phone: [facility] 06-01-2024 13:02-0400 Body height 162.56 cm MD Pito Patterson Work Phone: [facility] 06-01-2024 13:02-0400 Body temperature 97.5 [degF] MD Pito Patterson Work Phone: [facility] 06-01-2024 13:02-0400 Body weight 98.88 kg MD Pito Patterson Work Phone: [facility] 05-31-2024 14:31-0400 Body height 162.6 cm Connor Crawley DO Work Phone: [facility] 05-31-2024 14:31-0400 Body mass index (BMI) [Ratio] 37.76 kg/m2 Connor Bourgeoisencherri DO Work Phone: [facility] 05-31-2024 14:31-0400 Body weight 99.79 kg Connor Crawley DO Work Phone: [facility] 04-22-2024 09:41-0400 Blood Pressure Location Oni MCKEON [facility] 04-22-2024 09:41-0400 Body temperature 98.6 [degF] Oni MCKEON [facility] 04-22-2024 09:41-0400 Diastolic blood pressure 52 mm[Hg] Oni MCKEON [facility] 04-22-2024 09:41-0400 Heart rate 59 /min Oni MCKEON [facility] 04-22-2024 09:41-0400 Respiratory rate 16 /min Oni MCKEON [facility] 04-22-2024 09:41-0400 Systolic blood pressure 102 mm[Hg] Oni MCKEON [facility] 04-19-2024 14:18-0400 Body height 172.7 cm Tyler Draper MD Work Phone: [facility] 04-19-2024 14:18-0400 Body mass index (BMI) [Ratio] 33.16 kg/m2 Tyler Draper MD Work Phone: [facility] 04-19-2024 14:18-0400 Body temperature 96.8 [degF] Tyler Draper MD Work Phone: [facility] 04-19-2024 14:18-0400 Body weight 98.9 kg Tyler Draper MD Work Phone: [facility] 04-19-2024 14:18-0400 Diastolic blood pressure 66 mm[Hg] Tyler Draper MD Work Phone: [facility] 04-19-2024 14:18-0400 Heart rate 85 /min Tyler Draper MD Work Phone: [facility] 04-19-2024 14:18-0400 Respiratory rate 20 /min Tyler Draper MD Work Phone: [facility] 04-19-2024 14:18-0400 SaO2% (BldA) [Mass fraction] 92 % Tyler Draper MD Work Phone: [facility] 04-19-2024 14:18-0400 Systolic blood pressure 120 mm[Hg] Tyler Draper MD Work Phone: [facility] 03-09-2023 10:50-0400 Blood Pressure Location Oni MCKEON [facility] 03-09-2023 10:50-0400 Diastolic blood pressure 70 mm[Hg] Oni MCKEON [facility] 03-09-2023 10:50-0400 Heart rate 71 /min Oni MCKEON [facility] 03-09-2023 10:50-0400 Respiratory rate 16 /min Oni MCKEON [facility] 03-09-2023 10:50-0400 Systolic blood pressure 109 mm[Hg] Oni MCKEON [facility] 01-09-2022 13:00-0400 Body height 172.7 cm Hosea Herrera MD Work Phone: [facility] 01-09-2022 13:00-0400 Body temperature 97.81 [degF] Hosea Herrera MD Work Phone: [facility] 01-09-2022 13:00-0400 Body weight 100.61 kg Hosea Herrera MD Work Phone: [facility] 01-09-2022 13:00-0400 Diastolic blood pressure 68 mm[Hg] Hosea Herrera MD Work Phone: [facility] 01-09-2022 13:00-0400 Heart rate 93 /min Hosea Herrera MD Work Phone: [facility] 01-09-2022 13:00-0400 Respiratory rate 18 /min Hosea Herrera MD Work Phone: [facility] 01-09-2022 13:00-0400 SaO2% (BldA) [Mass fraction] 93 % Hosea Herrera MD Work Phone: [facility] 01-09-2022 13:00-0400 Systolic blood pressure 95 mm[Hg] Hosea Herrera MD Work Phone: [facility] 11-19-2021 10:19-0400 Blood Pressure Location Romeo Vidal Jr. [facility] 11-19-2021 10:19-0400 Diastolic blood pressure 60 mm[Hg] Romeo Vidal Jr. [facility] 11-19-2021 10:19-0400 Heart rate 80 /min Romeo Vidal Jr. [facility] 11-19-2021 10:19-0400 Respiratory rate 16 /min Romeo Vidal Jr. [facility] 11-19-2021 10:19-0400 Systolic blood pressure 113 mm[Hg] Romeo Vidal Jr. [facility] Encounters Encounter Date Encounter Type Care Provider Facility Start: 02-15-2026 ambulatory Marlys L Corwin Facility: [facility] Start: 04-24-2025 ambulatory Oni Victor ty:[facility] Start: 02-27-2025 ambulatory [facility] Start: 02-16-2025 End: 02-16-2025 Lab Drop off Marlys L Corwin [facility] Start: 02-16-2025 End: 02-16-2025 ambulatory Marlys L Corwin [facility] Start: 02-15-2025 End: 02-15-2025 ambulatory Marlys L Corwin Facility:[facility] Start: 02-14-2025 ambulatory Pito Patterson Facility :[facility] Start: 02-02-2025 End: 02-02-2025 Bamboo flowsheet Crys [facility] PA Work Phone: [facility] Start: 02-02-2025 End: 02-02-2025 [facility] Work [facility]: [facility] Start: 02-02-2025 End: 02-02-2025 Office outpatient visit 25 minutes Crys HERNANDEZ Work Phone: [facility] Comment on above: Melanocytic nevus of trunk (Primary Dx); History of SCC (squamous cell carcinoma) of skin; Seborrheic keratosis; Actinic keratosis; Ayala angioma; Other seborrheic dermatitis Start: 02-02-2025 End: 02-02-2025 ambulatory CRYS NORTHEIM Not Available Start: 12-21-2024 ambulatory CONNOR [facility] Start: 11-24-2024 End: 11-24-2024 Follow-up encounter Tyler Draper MD Work Phone: Hematology/Oncology Comment on above: TSH results Start: 11-24-2024 End: 11-24-2024 ambulatory Pito Patterson Facility:[facility] Katerina Start: 11-21-2024 End: 11-21-2024 ambulatory TYLER DRAPER Facility:[facility] Start: 11-21-2024 End: 11-21-2024 Office outpatient visit 25 minutes Tyler Draper MD Work Phone: Hematology/Oncology Comment on above: 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); History of prostate cancer; Acquired hypothyroidism Start: 11-15-2024 End: 11-15-2024 ambulatory TYLER DRAPER Facility:[facility] Start: 11-15-2024 End: 11-15-2024 Subsequent hospital visit by physician Arrival Time Radiology Work Phone: Radiology Pet CT Comment on above: Localized enlarged l ymph nodes [R59.0] Start: 10-21-2024 End: 10-21-2024 ambulatory [facility] Start: 10-17-2024 End: 10-28-2024 ambulatory Pito Patterson Facility:CD:[id number] Start: 10-14-2024 End: 10-14-2024 Telephone encounter Tyler Draper MD Work Phone: Hematology/Oncology Comment on above: Orders Start: 08-25-2024 End: 08-25-2024 ambulatory Pito Patterson Facility:[facility] Katerina Start: 08-04-2024 End: 08-04-2024 ambulatory CRYS NORTHEIM Not Available Start: 08-04-2024 End: 08-04-2024 Office outpatient visit 15 minutes Crys Taylor PA Work Phone: [facility] Comment on above: Capillary angioma (P rimary Dx); Melanocytic nevus of trunk; Seborrheic keratosis; Actinic keratosis; History of SCC (squamous cell carcinoma) of skin; Lentigo simplex Start: 07-13-2024 End: 07-13-2024 ambulatory MARKUS CERNA Facility:[facility] Start: 06-20-2024 End: 06-20-2024 Bamboo flowsheet Connor Crawley DO Work Phone: [facility] [place] Start: 06-20-2024 End: 06-20-2024 Bamboo flowsheet Connor [...] surgery center MD Pito Patterson Work Phone: [facility] Start: 06-01-2024 End: 06-01-2024 ambulatory MD Pito Patterson Work Phone: [facility] Work Phone: Start: 05-31-2024 End: 05-31-2024 Office outpatient new 60 minutes Connor Crawley DO Work Phone: [facility] Comment on above: 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); 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 Start: 05-31-2024 End: 05-31-2024 ambulatory CONNOR CRAWLEY Not Available Start: 05-31-2024 End: 05-31-2024 Bamboo flowsheet Connor Crawley DO Work Phone: [facility] Start: 05-31-2024 End: 05-31-2024 Bamboo flowsheet Connor Crawley DO Work Phone: [facility] Start: 05-17-2024 End: 05-17-2024 ambulatory Pito Patterson Facility:[facility] Start: 05-13-2024 End: 05-13-2024 ambulatory [facility] Start: 05-03-2024 End: 05-03-2024 Bamboo flowsheet Crys HERNANDEZ Work Phone: [facility] Start: 05-03-2024 End: 05-03-2024 Bamboo flowsheet Crys Taylor PA Work Phone: [facility] Start: 05-03-2024 End: 05-03-2024 Office outpatient new 20 minutes Crys Taylor PA Work Phone: [facility] Comment on above: Hemangioma of skin a nd subcutaneous tissue (Primary Dx); Neoplasm of unspecified behavior of bone, soft tissue, and skin; Seborrheic keratosis; Actinic keratosis Start: 05-03-2024 End: 05-03-2024 ambulatory CRYS TAYLOR Not Available Start: 04-29-2024 End: 04-29-2024 ambulatory TYLER DRAPER Facility:[facility] Start: 04-29-2024 End: 04-29-2024 Subsequent hospital visit by physician Arrival Time Radiology Work Phone: Radiology Pet CT Comment on above: History of lymphoma [Z85.72] Start: 04-26-2024 End: 04-26-2024 ambulatory CONNOR [facility] Start: 04-22-2024 End: 04-22-2024 ambulatory Oni MCKEON Facility:[facility] Start: 04-22-2024 End: 04-22-2024 Patient encounter procedure Oni MCKEON [facility] Start: 04-19-2024 End: 04-19-2024 Patient encounter procedure Tyler Draper MD Work Phone: Hematology/Oncology Start: 04-19-2024 End: 04-19-2024 ambulatory Tyler Draper MD Work Phone: Hematology/Oncology Comment on above: 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); History of lymphoma; Lymph node enlargement; Skin lesion of face Start: 04-19-2024 End: 04-26-2024 Telephone encounter Tyler Draper MD [facility] Phone: [facility] Comment on above: Future Appointment Start: 02-02-2024 Telephone encounter Valerie Wallace Hematology/Oncology Comment on above: Results Start: 01-21-2024 End: 01-21-2024 ambulatory PITO PATTERSON Facility:[facility] Start: 10-19-2023 End: 10-19-2023 Lab Drop off Pito Patterson [facility] Start: 03-31-2023 End: 03-31-2023 Patient encounter procedure Oni MCKEON [facility] Start: 03-09-2023 End: 03-09-2023 Patient encounter procedure Oni MCKEON [facility] Start: 01-26-2023 End: 01-26-2023 Lab Drop off Marlys Olivia [facility] Start: 08-05-2022 Telephone encounter Aby Hernandez RN Hematology/Oncology Comment on above: Results Start: 07-24-2022 Telephone encounter Tyler cadena MD Work Phone: [facility] Comment on above: Appointment Start: 04-22-2022 [...] procedure Romeo Vidal Jr. 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.[employer] Work Phone: Start: 08-04-2024 CRYOTHERAPY SKIN LESION Crys Taylor PA Work Phone: Start: 06-01-2024 Excision of lesion of cheek MD Pito Patterson Work Phone: Start: 05-03-2024 CRYOTHERAPY SKIN LESION Crys Taylor PA Work Phone: Start: 05-03-2024 End: 05-03-2024 SKIN / NAIL BIOPSY Crys Taylor PA Work Phone: Start: 04-29-2024 Gluc bld gluc mntr d ev cleared fda spec home use [facility] Provider Start: 03-31-2023 Cystoscopy Oni DURAN Start: 01-09-2022 Adult depression scr eening assessment Hosea Herrera MD Work Phone: Start: 01-07-[address] WILL LINDA Comment on above: Performed By: #### P SAD ####[facility] [id number] [place], [place] [address]Kr. Trevor Nichols Start: 06-28-2020 INSERT PACE. DUAL CH AM IN CHEST SUBCU/FASCIA, OPEN CONNOR CARRERA Start: 06-28-2020 INSERTION OF PACEMAK ER LEAD INTO R VENTRICLE, PERC APPROACH CONNOR DEBI Start: 06-28-2020 INSERTION OF PACEMAK ER LEAD [...] of sentinel lymph node Romeo Vidal Jr. Malignant neoplasm o f skin (disorder) Marlys Olivia Malignant neoplasm o f skin (disorder) Marlys Olivia Plan of Treatment Date Care Activity Detail Author Start: 05-09-2030 Urine microalbumin profile DTaP,Tdap,Td Vaccine (2 - Td or Tdap) [facility] Start: 11-16-2027 Diabetes Screening Diabetes Screening [facility] Start: 04-19-2027 Diabetes Screening Diabetes Screening [facility] Start: 01-20-2027 Diabetes Screening Diabetes Screening [facility] Start: 08-03-2025 End: 08-03-2025 Patient encounter procedure 08/03/2025 1:10 PM EST Office Visit [facility] [address] [place] [address] Crys Taylor PA [address] [place] [address] [facility] Start: 07-18-2025 DIABETES SCREEN DIABETES SCREEN [facility] Start: 05-29-2025 End: 05-29-2025 Follow-up encounter 05/29/2025 3:00 PM EDT Visit (SP) Office Hematology/Oncology [address] [place] [address] Ginger Bean APRN.[employer] [address] [place] [address] 6 month follow up / BRM pt Hematology/Oncology Comment on above: 6 month follow up / BRM pt Start: 05-22-2025 End: 05-22-2025 Patient encounter procedure 05/22/2025 3:30 PM EDT Office Visit [facility] [address] [place] [address] 6 month lab [facility] Comment on above: 6 month lab Start: 02-02-2025 End: 02-02-2025 Patient encounter procedure [facility] Comment on above: Arrived Start: 01-09-2025 DIABETES SCREEN DIABETES SCREEN [facility] Start: 11-21-2024 End: 11-21-2024 Follow-up encounter 11/21/2024 3:20 PM EDT Visit (SP) Office Hematology/Oncology [address] [place] [address] Tyler Draper MD [address] [place] [address] 6 Month follow up with lab Hematology/Oncology Comment on above: 6 Month follow up with lab Start: 11-21-2024 End: 11-21-2024 Patient encounter procedure 11/21/2024 3:00 PM EDT Office Visit [facility] [address] [place] [address] 6 Month follow up with lab [facility] Comment on above: 6 Month follow up with lab Start: 11-15-2024 End: 02-14-2025 CBC W Auto Differential panel - Blood COMPLETE BLOOD COUNT AND DIFFERENTIAL Lab Routine Diffuse large B-cell lymphoma, unspecified body region (HCC) Expected: 11/15/2024 (Approximate), Expires: 02/14/2025 [facility] Comment on above: Expected: 11/15/2024 (Approximate), Expi res: 02/14/2025 Start: 11-15-2024 End: 02-14-2025 Comprehensive metabolic 2000 panel - Serum or Plasma COMPREHENSIVE METABOLIC PANEL Lab Routine Diffuse large B-cell lymphoma, unspecified body region (HCC) Expected: 11/15/2024 (Approximate), Expires: 02/14/2025 [facility] Work Phone: Comment on above: Expected: 11/15/2024 (Approximate), Expi res: 02/14/2025 Start: 11-15-2024 End: 07-10-2025 CT Chest W contrast IV CT CHEST W IVCON Radiology Routine Localized enlarged lymph nodes Expected: 11/15/2024, Expires: 07/10/2025 [facility] Work Phone: Comment on above: Expected: 11/15/2024, Expires: Start: 11-15-2024 End: 02-14-2025 MONOCLONAL PROTEIN, SERUM (BLOOD) [facility] Comment on above: Expected: 11/15/2024 (Approximate), Expi res: 02/14/2025 Start: 11-15-2024 End: 02-14-2025 PROTEIN ELECTROPHORESIS SERUM W/INTERP [facility] Comment on above: Expected: 11/15/2024 (Approximate), Expi res: 02/14/2025 Start: 11-15-2024 End: 11-15-2024 Patient encounter procedure Radiology Pet CT Comment on above: CT Chest with IVC Start: 11-09-2024 Covid-19 Vaccine (7 - Pfizer risk season) Covid-19 Vaccine (7 - Pfizer risk season) [facility] Start: 08-17-2024 Advance Directive Discussion Advance Directive Discussion [facility] Start: 08-04-2024 End: 08-04-2024 Patient encounter procedure 08/04/2024 1:00 PM EST Office Visit [facility] [address] [place] [address] Crys Taylor PA [address] [place] [address] [facility] Start: 07-07-2024 Covid-19 Vaccine ( season) Covid-19 Vaccine ( season) [facility] Start: 06-28-2024 End: 06-28-2024 Patient encounter procedure 06/28/2024 1:00 PM EST Office Visit [facility] [address] [place] [phone] Chiki Malone MD [address] [place] [address] [facility] Start: 06-20-2024 End: 06-20-2024 Patient encounter procedure 06/20/2024 8:45 AM EST Office Visit [facility] [place] [address] [place] [phone] Connor Crawley DO [address] [place] [address] Arrived [facility] [place] Comment on above: Arrived Start: 06-17-2024 End: 06-17-2024 Patient encounter procedure 06/17/2024 1:15 PM EDT Office Visit [facility] [place] [address] [place] [phone] Connor Crawley DO [address] [place] [address] [facility] [place] Start: 06-09-2024 End: 06-09-2024 Patient encounter procedure [facility] [place] Comment on above: Arrived Start: 06-06-2024 End: 06-06-2024 Follow-up encounter 06/06/2024 1:45 PM EDT Visit (SP) Office Hematology/Oncology [address] [place] [address] [place] [address] Tyler Draper MD [address] [place] [address] 6 week follow up Hematology/Oncology Comment on above: 6 week follow up Start: 06-06-2024 End: 06-06-2024 Patient encounter procedure 06/06/2024 1:30 PM EDT Office Visit [facility] [address] [place] [address] 6 week follow up [facility] Comment on above: 6 week follow up Start: 06-01-2024 [facility] Start: 05-31-2024 End: 05-31-2024 Patient encounter procedure 05/31/2024 2:30 PM EDT Office Visit [facility] [address] [place] [phone] Connor Crawley S, DO [address] [place] [address] 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 [facility] Comment on above: Squamous cell cancer of skin of left vibha ek Start: 05-03-2024 End: 05-03-2024 Patient encounter procedure 05/03/2024 11:00 AM EDT Office Visit [facility] [address] [place] [address] Crys Taylor PA [address] [place] [address] Arrived [facility] Comment on above: Arrived Start: 04-29-2024 End: 04-29-2024 Patient encounter procedure 04/29/2024 1:30 PM EDT Appointment Radiology Pet CT [address] [place] [address] Comment on above: Pet scan Start: 04-19-2024 End: 04-19-2024 ambulatory 04/19/2024 2:30 PM EDT Visit (SP) Office Hematology/Oncology [address] [place] [address] Tyler Draper MD [address] [place] [place] [address] 6 month lab Hematology/Oncology Comment on above: 6 month lab Start: 04-19-2024 End: 04-19-2024 Patient encounter procedure 04/19/2024 2:15 PM EDT Office Visit [facility] [address] [place] [address] 6 month lab [facility] Comment on above: 6 month lab Start: 04-19-2024 End: 07-19-2024 MONOCLONAL PROTEIN, SERUM (BLOOD) [facility] Comment on above: Expected: 04/19/2024, Expires: Start: 04-19-2024 End: 07-19-2024 PROT ELECT SERUM WITH CARSON AND INTERP [facility] Work Phone: Comment on above: Expected: 04/19/2024, Expires: Start: 04-17-2024 Covid-19 Vaccine ( season) Covid-19 Vaccine ( season) [facility] Start: 04-17-2024 Influenza vaccination Influenza Vaccine (#1) [facility] Start: 08-27-2023 Covid-19 Vaccine ( season) Covid-19 Vaccine ( season) [facility] Start: 08-17-2023 Advance Directive Discussion Advance Directive Discussion [facility] Start: 08-17-2023 Behavioral Health Screening Behavioral Health Screening [facility] Start: 01-09-2023 Adult depression screening assessment DEPRESSION SCREENING [facility] Start: 07-18-2022 End: 09-17-2022 CBC panel - Blood by Automated count CBC Lab Routine MGUS (monoclonal gammopathy of unknown significance) Expected: 07/18/2022 (Approximate), Expires: 09/17/2022 [facility] Work Phone: Comment on above: Expected: 07/18/2022 (Approximate), Expi res: 09/17/2022 Start: 07-18-2022 End: 09-17-2022 Comprehensive metabolic 2000 panel - Serum or Plasma COMP METABOLIC PANEL Lab Routine MGUS (monoclonal gammopathy of unknown significance) Expected: 07/18/2022 (Approximate), Expires: 09/17/2022 [facility] Work Phone: Comment on above: Expected: 07/18/2022 (Approximate), Expi res: 09/17/2022 Start: 07-18-2022 End: 09-17-2022 MONOCLONAL PROTEIN, SERUM (BLOOD) MONOCLONAL PROTEIN, SERUM (BLOOD) Lab Routine MGUS (monoclonal gammopathy of unknown significance) Expected: 07/18/2022 (Approximate), Expires: 09/17/2022 [facility] Work Phone: Comment on above: Expected: 07/18/2022 (Approximate), Expi res: 09/17/2022 Start: 07-18-2022 End: 09-17-2022 PROTEIN ELECTROPHORESIS SERUM W/INTERP PROTEIN ELECTROPHORESIS SERUM W/INTERP Lab Routine MGUS (monoclonal gammopathy of unknown significance) Expected: 07/18/2022 (Approximate), Expires: 09/17/2022 [facility] Work Phone: Comment on above: Expected: 07/18/2022 (Approximate), Expi res: 09/17/2022 Start: 05-06-2022 COVID-19 VACCINE (5 - Booster for Pfizer series) COVID-19 VACCINE (5 - Booster for Pfizer series) [facility] Start: 04-17-2022 Influenza vaccination INFLUENZA (#1) [facility] Start: 09-25-2021 COVID-19 VACCINE (4 - Booster for Pfizer series) COVID-19 VACCINE (4 - Booster for Pfizer series) [facility] Start: 08-17-2021 ADVANCE DIRECTIVE DISCUSSION ADVANCE DIRECTIVE DISCUSSION [facility] Start: 08-17-2021 DEPRESSION ASSESSMENT DEPRESSION ASSESSMENT [facility] Start: 2007 RSV Vaccine (1 - 1-dose 60+ series) RSV Vaccine (1 - 1-dose 60+ series) [facility] Start: 1997 SHINGRIX VACCINE (1 of 2) SHINGRIX VACCINE (1 of 2) [facility] Start: 1992 COLOGUARD (FIT-DNA) COLOGUARD (FIT-DNA) [facility] Start: 1992 Colonoscopy COLONOSCOPY [facility] Start: 1992 COLORECTAL CANCER SCREENING COLORECTAL CANCER SCREENING [facility] Start: [address] COLONOGRAPHY [facility] Start: 1992 FECAL OCCULT BLOOD FECAL OCCULT BLOOD [facility] Start: 1992 SIGMOIDOSCOPY SIGMOIDOSCOPY [facility] Start: 1982 LIPID SCREEN LIPID SCREEN [facility] Start: 1966 SHINGRIX VACCINE (1 of 2) SHINGRIX VACCINE (1 of 2) [facility] Start: 1966 Urine microalbumin profile DTAP,TDAP,TD (1 - Tdap) [facility] Start: 1965 Anxiety Screening Anxiety Screening [facility] Start: 1965 Depression Screening Depression Screening [facility] Start: 1965 HEPATITIS C SCREENING HEPATITIS C SCREENING [facility] Start: 1965 Hepatitis C screening Hepatitis C Screening [facility] Start: 1947 ABDOMINAL AORTIC ANEURYSM SCREENING ABDOMINAL AORTIC ANEURYSM SCREENING [facility] Start: 1947 Medicare Annual Wellness (AWV) Medicare Annual Wellness (AWV) [facility] CBC W Auto Different ial panel - Blood CBC + DIFF Lab Routine B12 deficiency Diffuse large B-cell lymphoma, unspecified body region (HCC) 01/09/2022 1:40 PM EDT [facility] Work Phone: Dermatopathology exam Dermatopat hology exam Pathology and Cytology Timed Neoplasm of unspecified behavior of bone, soft tissue, and skin Release Upon Ordering for 1 Occurrences starting 05/03/2024 [facility] Work Phone: Comment on above: Release Upon Ordering for 1 Occurrences starting 05/03/2024 End: 11-15-2024 IMMUNOFIXATION SCREEN, SERUM [facility] Comment on above: Once for 1 Occurrences starting 11/16/19 until 11/15/2024 End: 11-15-2024 IMMUNOGLOBULINS,IGG,IGA,I GM [facility] Comment on above: Once for 1 Occurrences starting 11/16/19 until 11/15/2024 End: 11-15-2024 KAPPA/ARDON,FREE,SER [facility] Comment on above: Once for 1 Occurrences starting 11/16/19 until 11/15/2024 Patient Education Know your Meds [facility] Work Phone: Patient referral [facility] Work Phone: End: 05-19-2025 PET+CT Guidance for localization of tumor of Skull base to mid-thigh-- W 18F-FDG IV NM PET/CT SKULL-THIGH SUBSEQUENT Radiology Routine History of lymphoma Lymph node enlargement 1 Occurrences starting 04/19/2024 until 05/19/2025 [facility] Comment on above: 1 Occurrences starting 04/19/2024 until 05/19/2025 PET+CT Guidance for localization of tumor of Skull base to mid-thigh-- W 18F-FDG IV NM PET/CT SKULL-THIGH SUBSEQUENT Radiology Routine History of lymphoma Lymph node enlargement 04/29/2024 3:28 PM EDT [facility] Work Phone: End: 11-15-2024 PROTEIN ELECTROPHORESIS SERUM (P) [facility] Work Phone: Comment on above: Once for 1 Occurrences starting 11/16/19 until 11/15/2024 [facility] Immunizations Immunization Date Immunization Notes Care Provider [facility] 05-12-2024 influenza, high dose seasonal, preservative-free Connor Crawley DO Work Phone: [facility] 05-12-2024 SARS-CoV-2 mRNA (tozinameran 5y-11y) vaccine Marlys Olivia [facility] Comment on above: Result Comment: COvi d 19 mRNA, LN-S pfizer trus sucrose 05-12-2024 influenza virus vaccine, unspecified formulation Connor Crawley DO Work Phone: [facility] 03-21-2024 canakinumab Oni MCKEON [facility] Comment on above: Result Comment: RSV 03-21-2024 respiratory syncytia l virus (RSV) vaccine, adjuvanted (AREXVY) Tyler Draper MD Work Phone: [facility] 03-21-2024 RSV vaccine preF3, recombinant Marlys Corwin [facility] 07-02-2023 SARS-CoV-2 mRNA (tozinameran 5y-11y) vaccine Pito Patterson [facility] Comment on above: Result Comment: covi d 19 eneida sucrose [facility] 05-11-2023 influenza, high dose seasonal, preservative-free Pito Patterson [facility] 05-11-2023 influenza virus vaccine, unspecified formulation Tyler Draper MD Work Phone: [facility] 03-11-2022 SARS-CoV-2 mRNA (vqkwvuxcykg-kowu-erpmm se) vaccine Marlys [facility] 06-25-2021 SARS-CoV-2 (COVID-19 ) mRNA BNT-162b2 vax Marlys [facility] 05-24-2021 influenza (HD-IIV4) vaccine, age 65+ yr, high dose, quadrivalent, PF (FLUZONE HIGH-DOSE) Tyler Draper MD Work Phone: [facility] 05-24-2021 influenza virus vaccine, unspecified formulation Marlys Corwin [facility] 11-13-2020 COVID-19 vaccine, ag e 12+ yr (PFIZER-BIONTECH - PURPLE TOP) Hosea Herrera MD Work Phone: [facility] 10-22-2020 COVID-19 vaccine, ag e 12+ yr (PFIZER-BIONTECH - PURPLE TOP) Hosea Herrera MD Work Phone: [facility] 07-24-2020 zoster vaccine recombinant Marlys [facility] 07-22-2020 zoster vaccine recombinant Tyler Draper MD Work Phone: [facility] 05-09-2020 influenza (HD-IIV4) vaccine, age 65+ yr, high dose, quadrivalent, PF (FLUZONE HIGH-DOSE) Tyler Draper MD Work Phone: [facility] 05-09-2020 influenza virus vaccine, unspecified formulation Marlys Corwin [facility] 05-09-2020 tetanus toxoid, redu juvencio diphtheria toxoid, and acellular pertussis vaccine, adsorbed Marlys Corwin [facility] 05-09-2020 zoster vaccine recombinant Marlys [facility] 04-16-2019 influenza virus vaccine, unspecified formulation Marlys Corwin [facility] 04-16-2019 Seasonal trivalent influenza vaccine, adjuvanted, preservative free Tyler Draper MD Work Phone: [facility] 05-25-2018 influenza nasal, unspecified formulation Tyler Draper MD Work Phone: [facility] 05-25-2018 influenza virus vaccine, unspecified formulation Marlys Corwin [facility] 05-25-2018 influenza, injectabl e, quadrivalent, preservative free Hosea Herrera MD Work Phone: [facility] 05-25-2018 pneumococcal polysaccharide vaccine, 23 valent Hosea Herrera MD Work Phone: [facility] 04-26-2018 influenza nasal, unspecified formulation Tyler Draper MD Work Phone: [facility] 04-26-2018 influenza virus vaccine, unspecified formulation Marlys [facility]win [facility] 04-26-2018 influenza, high dose seasonal, preservative-free Hosea Herrera MD Work Phone: [facility] 04-26-2018 pneumococcal polysaccharide vaccine, 23 valent Hosea Herrera MD Work Phone: [facility] 08-04-2017 influenza nasal, unspecified formulation Tyler Draper MD Work Phone: [facility] 08-04-2017 influenza virus vaccine, unspecified formulation Marlys [facility] 08-04-2017 influenza, high dose seasonal, preservative-free Hosea Herrera MD Work Phone: [facility] 08-04-2017 pneumococcal conjuga te vaccine, 13 valent Hosea Herrera MD Work Phone: [facility] influenza vaccine qs 240 mcg, Patients 65 years and older,, PF, (FLUZONE HIGHDOSE QUAD 20-21 PF) 240 mcg/0.7 mL injection Hosea Herrera MD Work Phone: [facility] Comment on above: Fluzone High-Dose Qu ad 2020-21 (PF) 240 mcg/0.7 mL IM syringe PHARMACY ADMINISTERED influenza vaccine qs 240 mcg, Patients 65 years and older,, PF, (FLUZONE HIGHDOSE QUAD 20-21 PF) 240 mcg/0.7 mL injection Tyler Draper MD Work Phone: [facility] Comment on above: Fluzone High-Dose Qu ad 2020-21 (PF) 240 mcg/0.7 mL IM syringe PHARMACY ADMINISTERED influenza vaccine qs 240 mcg, Patients 65 years and older,, PF, (FLUZONE HIGHDOSE QUAD 20-21 PF) 240 mcg/0.7 mL injection Valerie Mayes RN [facility] influenza vaccine qs 240 mcg, Patients 65 years and older,, PF, (FLUZONE HIGHDOSE QUAD 20-21 PF) 240 mcg/0.7 mL injection Tyler Draper MD Work Phone: [facility] influenza vaccine qs 240 mcg, Patients 65 years and older,, PF, (FLUZONE HIGHDOSE QUAD 20-21 PF) 240 mcg/0.7 mL injection Tyler Draper MD Work Phone: [facility] influenza vaccine qs 240 mcg, Patients 65 years and older,, PF, (FLUZONE HIGHDOSE QUAD 20-21 PF) 240 mcg/0.7 mL injection Arrival Radiology Work Phone: [facility] Payers Date Payer Category Payer Medicare (Managed Care) 1.2. [id number] 2022 Private Health Insurance [id number] 2014 Medicare AETNA MEDICARE A ETNA MEDICARE PPO [id number] 2014-Present [phone] [address] [place] [address] PPO [id number] 2012 Medicare [id number]. [id number] 2012 Medicare [id number] 1959 Medicare [id number] 1959 Private Health Insurance [id number] Self-pay 1947 Unknown [id number] 2.16.840.1.689333.3.579.2. 647 1947 Unknown [id number] 2.16.840.1.124929.3.579.2. 593 1947 Unknown [id number] 2.16.840.1.606905.3.579.2. 593 1947 Unknown [id number] 2.16.840.1.732488.3.579.2. 593 1947 Unknown [id number] 2.16.840.1.339996.3.579.2. 593 1947 Unknown [id number] 2.16.840.1.327044.3.579.2. 593 1947 Unknown [id number] 2.16.840.1.673379.3.579.2. 593 1947 Unknown [id number] 2.16.840.1.217529.3.579.2. 593 1947 Unknown [id number] 2.16.840.1.035537.3.579.2. 593 1947 Unknown [id number] 2.16.840.1.081795.3.579.2. 593 1947 Unknown [id number] 2.16.840.1.615315.3.579.2. 593 1947 Unknown [id number] 2.840.1.931607.3.579.2. 593 1947 Unknown [id number] 2.16840.1.396126.3.579.2. 593 1947 Unknown [id number] 2.16.840.1.430754.3.579.2. 593 1947 Unknown [id number] 2.16840.1.236886.3.579.2. 593 1947 Unknown [id number] 2.840.1.973152.3.579.2. 593 1947 Unknown [id number] 2.16.840.1.771352.3.579.2. 593 1947 Unknown [id number] 2.16.840.1.660640.3.579.2. 593 1947 Unknown [id number] 2.16.840.1.748020.3.579.2. 593 1947 Unknown [id number] 2.16.840.1.090851.3.579.2. 593 1947 Unknown [id number] 2.16.840.1.571637.3.579.2. 593 1947 Unknown [id number] 2.16.840.1.312290.3.579.2. 1259 1947 Unknown [id number] 2.16.840.1.055445.3.579.2. 1259 1947 Unknown [id number] 2.16.840.1.917128.3.579.2. 125 1947 Unknown [id number] 2.16.840.1.785586.3.579.2. 125 1947 Unknown [id number] 2.16.840.1.913974.3.579.2. 125 1947 Unknown [id number] 2.16.840.1.885890.3.579.2. 1258 1947 Unknown [id number] 2.840.1.468222.3.579.2. 1947 Unknown [id number] 2.16.840.1.667161.3.579.2. 1947 Unknown [id number] 2.16.840.1.839937.3.579.2. 1947 Unknown [id number] 2.16840.1.773894.3.579.2. 72 1947 Unknown [id number] 2.16840.1.024105.3.579.2. 72 1947 Unknown [id number] 2.16.840.1.559477.3.579.2. 72 1947 Unknown [id number] 2.16.840.1.019884.3.579.2. 1947 Unknown [id number] 2.16.840.1.867536.3.579.2. 72 1947 Unknown [id number] 2.16840.1.709848.3.579.2. 727 1947 Unknown [id number] 2.16.840.1.769781.3.579.2. 727 1947 Unknown [id number] 2.16.840.1.251960.3.579.2. 727 1947 Unknown [id number] 2.16.840.1.692643.3.579.2. 727 1947 Unknown [id number] 2.16.840.1.724198.3.579.2. 72 Medicare Medicare Outpatient [id number] Unknown [id number] 2.16.840.1.300862.3.579.2. 593 Unknown Karl BC/BS [id number] Unknown [id number] 2.16.840.1.043290.3.579.2. 531 Social History Date Type Detail Facility Start: 11-19-2021 End: 02-15-2025 Tobacco smoking status Ex-smoker (finding) [facility] Comment on above: Patient states he sm oked cigarettes, 1 PPD from about 22 years old until about 42 years old. denies use. Former s moker. Quit 1987. Start: 07-30-2023 End: 08-04-2024 Sex Assigned At Male [facility] Start: 09-06-1968 End: 09-06-1988 History of tobacco use Current smoker [facility] Start: 09-06-2012 End: 08-04-2024 Cigarettes smoked current (pack per day) - Reported 1 [facility] Start: 09-06-2012 End: 05-03-2024 Tobacco use and exposure Smokeless tobacco non-user [facility] Start: 01-09-2022 End: 11-21-2024 Alcohol intake Current drinker of alcohol (finding) [facility] Start: 04-05-2019 History SDOH Alcohol Comment rare [facility] Start: 1945 Sex Assigned At Not on file [facility] Start: 12-30-2021 End: 01-09-2022 Exposure to SARS-CoV-2 (event) Not sure [facility] Start: 09-06-1968 End: 09-06-1988 History of tobacco use Cigarette Smoker [facility] History of tobacco use Passive smoker [facility] Tobacco smoking status Never [facility] Comment on above: Patient states he sm oked cigarettes, 1 PPD from about 22 years old until about 42 years old. denies use. Former s moker. Quit 1987. Start: 05-03-2024 End: 02-02-2025 Alcoholic beverage intake Defer [facility] Start: 1945 Sex Assigned At Male F [facility] smoking consumption unknown [facility] Sexual Orientation [facility] Start: 11-01-2016 Sex Male (finding) [facility] NEGATED: Highlighted rowStart: NINF History of tobacco use Passive smoker [facility] Goals Date Patient Goal Desired Activity /State Functional Status Date Assessment Result Facility 04-22-2024 Functional Status N/A [facility] 03-09-2023 Functional Status N/A [facility] 02-19-2015 Are you deaf, or do you have serious difficulty hearing No 02/19/2015 11:13 AM Otilia Mejía No [facility] 02-19-2015 Are you blind, or do you have serious difficulty seeing, even when wearing glasses No 02/19/2015 11:13 AM Otilia Mejía No [facility] 02-19-2015 Do you have serious difficulty walking or climbing stairs No 02/19/2015 11:13 AM Otilia Mejía No [facility] 02-19-2015 Do you have difficul ty dressing or bathing Yes 02/19/2015 11:13 AM Otilia Mejía Yes [facility] 02-20-2014 Because of a physica l, mental, or emotional condition, do you have difficulty doing errands alone such as visiting a physician's office or shopping No 02/20/2014 11:24 AM EDT Mario Otilia No [facility] Mental Status Date Assessment Result Facility 02-19-2015 Because of a physica l, mental, or emotional condition, do you have serious difficulty concentrating, remembering, or making decisions No 02/19/2015 11:13 AM EDT Mario Otilia No [facility] Clinical Notes 11-19-2021 to 02-15-2025 MARY Simmons - 02/02/2025 1:20 PM EDTTelephone Encounter - Valerie Mayes RN - 11/24/2024 11:51 AM EDTTelephone Encounter - Valerie Mayes RN - 11/24/2024 11:51 AM EDT Note Date & Type Note Facility 02-15-2025 Note Patient Education Endocrinology Hypothyroidism Hypothyroidism is when [...] Follow these instructions at home: ??? Take [id number] and prescription medicines only as told by [...] provider. Document Revised: 08/05/2022 Document Reviewed: 08/05/2022 [employer] Patient Education ? 2023 [employer]. Screening for Type 2 Diabetes A screening test for type 2 diabetes (type 2 diabetes mellitus) is a blood test to measure your blood sugar (glucose) level. This test is done to check for early signs of diabetes, before you develop symptoms (more content not included)... [facility] 02-02-2025 History of Present illness Narrative Skin Check Location: Patient requests a skin examination from the waist up, A full body skin exam was offered, patient declined Dermatologic history: history of Actinic Keratosis, history of Squamous Cell Carcinoma Last visit: 6 months ago Established patient of Crys Taylor PA-C Other Problem: itching Location: scalp Duration: months Current treatment: head and shoulders All pertinent medical history, medications, and allergies were reviewed. General Exam: alert, oriented to person, place, and time, normal affect, well appearing Unaccompanied A complete skin exam was offered, pt declined. Areas not examined despite medical recommendation: From the waist down Scalp, Examined Head, Face Examined Neck Examined Chest Examined Back Examined Abdomen Examined Right arm Examined Left arm Examined Hands Examined Digits,nails: Examined Lymphatics: Skin Exam 1. SEBORRHEIC KERATOSIS (3) Arms, Head - Anterior (Face), Trunk Stuck on verrucous, variably pigmented papules and plaques. Patient was counseled regarding these benign growths. Removal is normally not necessary, but they may be removed if they are symptomatic or for cosmetic reasons. 2. HISTORY OF SCC (SQUAMOUS CELL CARCINOMA) OF SKIN (2) Left Cheek, Right Frontal Scalp No [...] within or around the previous surgery scar. 3. MELANOCYTIC NEVUS OF TRUNK Trunk Scattered benign appearing, regular brown to light brown melanocytic papules and macules with similar morphology Counseled regarding these benign growths. Rarely, a nevus can develop into malignant melanoma, so any changing nevi should be promptly re-evaluated. 4. ACTINIC KERATOSIS (6) Left Antihelix, Mid Parietal Scalp (5) Erythematous scaly papules Patient was counseled regarding [...] limited to risks of scarring, darker or rn gyn pigmentary changes, recurrence, incomplete removal and infection. Method: Liquid nitrogen was used to treat the lesion(s) with two 5-10 second freeze-thaw cycles. Eyes were shielded using cotton pad during procedure Number of lesions treated: 6 Post-procedure instructions: Instructions were given orally and in writing. The office will be contacted if the lesion fails to resolve despite treatment, or if a side effect develops such as abnormal crusting, scabbing, redness or tenderness Cryotherapy, skin lesion - Left Antihelix, Mid Parietal Scalp (5) 5. AYALA ANGIOMA Abdomen (Lower Torso, Anterior) Scattered ayala-red papule(s). The patient was informed that angiomas are benign growths on the the skin. No treatment is necessary. 6. OTHER SEBORRHEIC DERMATITIS Scalp Erythema and scale. Flaring today Discussed that seborrheic dermatitis is a chronic condition that can be controlled but not cured. Start ciclopirox shampoo 2-3 times weekly, leave on 5-10 min, then rinse. Notify office if flaring despite treatment. Ciclopirox 1 % shampoo - Scalp Lather on wet hair, leave on 5 min, rinse 2-3 x week, 30 day supply Next Visit: 6 months documented in this encounter [facility] 11-24-2024 Telephone encounter Note Pt notified of BRM message below. She is agreeable to follow up with PCP, to discuss US. She denies any questions, needs or concerns at this time. Labs faxed to PCP, Dr Navarro Mayes RN [facility] 11-24-2024 Miscellaneous Notes Pt notified of BRM message below. She is agreeable to follow up with PCP, to discuss US. She denies any questions, needs or concerns at this time. Labs faxed to PCP, Dr Navarro Mayes, RN documented in this encounter [facility] 11-21-2024 Note HNO ID: [id number] Author: YOLANDA MONTAGUE MA Service: ? Author Type: Cow Washer Type: Progress Notes Filed: 11/23/2024 09:37 Note Text: Pt very short of breath. Has oxygen at home. But declined using our oxygen.Yolanda Montague MA [facility] 11-21-2024 History of Present illness Narrative Pt very short of breath. Has oxygen at home. But declined using our oxygen.Yolanda Montague MA PATIENT NAME: Chiki FERNANDON: [id number] DATE: 11/21/2024 PRIMARY CARE PHYSICIAN: Dr. Pito Patterson OTHER PHYSICIANS: Dr. Mayra Berg ([facility]), Dr. Crawley, Dr. Sousa Portions of this encounter note have been copied from my note from 06/06/2024 and has been updated where appropriate, and reflect my current medical decision making from today. 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 Herrera). INTERIM HISTORY: Since the patient's last visit here he developed a severe influenza A infection and was hospitalized at [facility]. Apparently his symptoms were severe enough that he was in the ICU. He was discharged after 4 days. Although he had not completely recovered, his 57-year-old son unexpectedly which prompted the urgent discharge. Fortunately he has since recovered, and currently feels back to baseline. Chronic shortness of breath persists, not severe. No hemoptysis or other pulmonary symptoms. Denies any bone pain or other systemic problems. MEDICATIONS: TEZSPIRE 210 mg/1.91 mL (110 mg/mL) [...] Hypothyroidism Hypoxemia Multiple myeloma (HCC) Pulmonary edema (HCC) Stroke (HCC) Thyroid disease aquired due [...] seizures or tremors PHYSICAL EXAM: Vitals: BP 122/65 Pulse 83 Temp 36.5 C (97.7 F) (Temporal) Resp 24 Wt 97 kg (213 lb 13.5 oz) SpO2 90% BMI 32.52 kg/m General appearance: well appearing, alert, in no acute distress, well-hydrated, well nourished Head: normal Eyes: Anicteric sclera. Pupils are [...] the supra regular, axillary, or inguinal regions. PATHOLOGY: 06/01/2024 Skin resection ([facility]) A. Skin lesion from left cheek: Recent biopsy site with scarring and chronic inflammation with fibrosis. Intradermal squamous dysplasia. All margins are free. B. Skin lesion from scalp: Squamous cell carcinoma. Surgical margins are free. LABORATORY DATA: Hemoglobin (g/dL) Date Value 11/15/2024 11.5 09/23/2021 11.3 Hematocrit (%) Date Value 11/15/2024 35.7 09/23/2021 36.2 WBC (k/uL) Date Value 11/15/2024 5.55 09/23/2021 3.99 Platelet Count (k/uL) Date Value 11/15/2024 186 09/23/2021 184 RADIOLOGY/OTHER STUDIES: 11/15/2024 CT chest IMPRESSION: No lymphadenopathy in the chest by size criteria. 04/29/2024 PET scan IMPRESSION: HEAD/NECK: * Left [...] active disease. 02/01/2024 Bilateral lower extremity Doppscan ([facility]) The RIGHT lower extremity was imaged, assessed [...] Trans x 2.56 cm Sagittal. 12/31/2023 CXR ([facility]) IMPRESSION: 1. No significant interval change and no new or worsening airspace disease. No pleural effusion or pneumothorax. 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 2. Stable cardiomediastinal silhouette. 3. Left chest wall CIED with leads in the right atrium and right ventricle. 4. Unchanged compression deformity in the mid thoracic spine. 09/24/2021 Skeletal bone survey ([facility]) No lytic lesions suggestive of multiple myeloma [...] a low level IgG lambda monoclonal protein. He was seen September 2021 for hematologic evaluation. 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 Repeat SPEP 07/18/2022 revealed resolution of the M protein. Most recent SPEP 11/15/2024 stable (M protein 0.00). At this time will continue routine observation. Return in 6 months with repeat labs. Will further evaluate (bone marrow biopsy) if labs worsen. 2. Macrocytic anemia - ICD9: 281.9, ICD10: D53.9 Since completing chemotherapy for lymphoma the patient has had mild macrocytic anemia and intermittent thrombocytopenia. Differential diagnosis includes prolonged effect of chemotherapy versus MDS versus other systemic disorder. Bone marrow biopsy was considered but the patient declined. Will monitor CBC and further evaluate if labs worsen. 3. History of malignant neoplasm of prostate (HCC) - ICD9: 185, ICD10: C61 Presenting PSA January 2019 elevated at 10.9. March 16, 2019 random TRUS prostate biopsies with prostate adenocarcinoma, [place] 4+3, 3 cores involved out of 9, [...] of pathologic inguinal lymphadenopathy the patient underwent PET scan 04/29/2024 which was essentially negative. However, mention made of an AP window/left hilar mildly avid 0.7 cm lymph node favored to be reactive, lymphomatous involvement less likely. Follow-up chest CT/08/2024 negative. Currently no evidence of disease. Will continue to monitor clinically and restage as indicated if suspicious signs or symptoms develop. 5. COPD, suspected bronchiectasis The patient has a long history of pulmonary symptoms from COPD and possible bronchiectasis. Continue management per PCP and pulmonary (Dr. Mayra Berg at [facility]). 6. History of hypothyroidism The patient has a long history of hypothyroidism, currently on Synthroid. PET scan April 2024 revealed diffuse thyroid uptake, most likely secondary to thyroiditis. Will check TFTs today. If within normal limit the patient will follow-up with PCP for further evaluation, most likely to include thyroid ultrasound. 7. Cerebrovascular disease Status post CVA 2019. The patient has residual dysarthria. Continue management per PCP/neurology. 8. Squamous cell skin cancer April 2024 the patient presented with a nonhealing ulcer over the left cheek area. Diagnosed squamous cell skin cancer per dermatology. Status post surgical resection 06/01/2024 per ENT. Currently no evidence of disease. Continue management per dermatology/ENT. Tyler Draper MD CC: Dr. Jb Patterson, PCP Dr. Mayra Berg, Tent[employer]arer at [facility] documented in this encounter [facility] 11-19-2024 Note HNO ID: [id number] Author: TYLER DRAPER MD Service: ? Author Type: Physician Type: Progress Notes Filed: 11/23/2024 09:37 Note Text: PATIENT NAME: Chiki Juarez DATE: 11/21/2024 PRIMARY CARE PHYSICIAN: Dr. Pito Patterson OTHER PHYSICIANS: Dr. Mayra Berg ([facility]), Dr. Crawley, Dr. Sousa Portions of this encounter note have been copied from my note from 06/06/2024 and has been updated where appropriate, and reflect my current medical decision making from today. 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 Herrera). INTERIM HISTORY: Since the patient's last visit here he developed a severe influenza A infection and was hospitalized at [facility]. Apparently his symptoms were severe enough that he was in the ICU. He was discharged after 4 days. Although he had not completely recovered, his 57-year-old son unexpectedly which prompted the urgent discharge. Fortunately he has since recovered, and currently feels back to baseline. Chronic shortness of breath persists, not severe. No hemoptysis or other pulmonary symptoms. Denies any bone pain or other systemic problems. MEDICATIONS: TEZSPIRE 210 mg/1.91 mL (110 mg/mL) [...] Hypothyroidism Hypoxemia Multiple myeloma (HCC) Pulmonary edema (HCC) Stroke (HCC) Thyroid disease aquired due [...] seizures or tremors PHYSICAL EXAM: Vitals: BP 122/65 Pulse 83 Temp 36.5 ?C (97.7 ?F) (Temporal) Resp 24 Wt 97 kg (213 lb 13.5 oz) SpO2 90% BMI 32.52 kg/m? General appearance: well appearing, alert, in no acute distress, well-hydrated, well nourished Head: normal Eyes: Anicteric sclera. Pupils are equally round and reactive to light. Extraocular movements are intact. Ears: negative findings (more content not included)... [facility] 11-15-2024 History of Present illness Narrative Radiology Service Progress Note DATE OF SERVICE: November 15, 2024 TIME: 2:32 PM PATIENT WEIGHT: 211LBS PATIENT IDENTITY VERIFICATION COMPLETED USING TWO (2) STANDARD IDENTIFIERS: Name and Date of confirmed by patient verbally. FALL SCREENING: Has the patient had 2 falls in the last year or 1 fall with injury or currently using an Ambulatory Assistive Device (Walker, Cane, Wheelchair, Crutches, etc.)? No PATIENT GENDER DATA: Assigned male at ALLERGIES: Reviewed and unchanged CONTRAST ALLERGY: No EXAM: CT -CONTRAST INDUCED NEPHROPATHY RISK FACTORS: Patient age > 60 years and Congestive Heart Failure (CHF) CREATININE: Creatinine Date Value Ref Range Status [...] Range Status 09/23/2021 >60 Final P.O.C.T. RESULTS: Outside Creatinine: 1.56 mg/dl, Calculated GFR 53, Date 10/13/24 November 15, 2024 TREATMENT: No Hydration needed. IV SITE: Ambulatory: A peripheral IV was started in the Right hand with a Angio cath: 22 gauge. IV SITE APPEARANCE: Clean,Dry and Intact SIGNATURE: Meg Mcfalrand RN PATIENT NAME: Chiki Juarez DATE: November 15, 2024 TIME: 2:32 PM Radiology Service Progress Note PATIENT NAME: Chiki Juarez DATE OF SERVICE: November 15, 2024 TIME: 3:18 PM PATIENT IDENTITY VERIFICATION COMPLETED USING TWO (2) IDENTIFIERS: Name and Date of confirmed by patient verbally. FALL SCREENING: Has the patient had 2 falls in the last year or 1 fall with injury or currently using an Ambulatory Assistive Device (Walker, Cane, Wheelchair, Crutches, etc.)? No PATIENT GENDER DATA: Assigned male at PATIENT RELEVANT IMPLANT DATA REVIEWED: Not Applicable PATIENT PRESENTS WITH AN IMPLANTABLE OR ATTACHED CHIEF STATION ENGINEER: No RADIOLOGY DEPARTMENT: CT; Exam(s) Completed: Chest PERIPHERAL IV DATA: Site assessment: Clean,Dry and Intact, Site disposition Discontinued SIGNED BY: RT Sonya(R) November 15, 2024 3:18 PM documented in this encounter [facility] 11-15-2024 Note HNO ID: [id number] Author: BROOK DONALDSON RT(R) Service: ? Author Type: Technologist Type: Progress Notes Filed: 11/15/2024 15:18 Note Text: Radiology Service Progress Note PATIENT NAME: Chiki Juarez DATE OF SERVICE: November 15, 2024 TIME: 3:18 PM PATIENT IDENTITY VERIFICATION COMPLETED USING TWO (2) IDENTIFIERS: Name and Date of confirmed by patient verbally. FALL SCREENING: Has the patient had 2 falls in the last year or 1 fall with injury or currently using an Ambulatory Assistive Device (Walker, Cane, Wheelchair, Crutches, etc.)? No PATIENT GENDER DATA: Assigned male at PATIENT RELEVANT IMPLANT DATA REVIEWED: Not Applicable PATIENT PRESENTS WITH AN IMPLANTABLE OR ATTACHED CHIEF STATION ENGINEER: No RADIOLOGY DEPARTMENT: CT; Exam(s) Completed: Chest PERIPHERAL IV DATA: Site assessment: Clean,Dry and Intact, Site disposition Discontinued SIGNED BY: RT Sonya(Melodie) November 15, 2024 3:18 PM [facility] 11-15-2024 Note HNO ID: [id number] Author: MEG MCFARLAND RN Service: ? Author Type: Registered Nurse Type: Progress Notes Filed: 11/15/2024 14:33 Note Text: Radiology Service Progress Note DATE OF SERVICE: November 15, 2024 TIME: 2:32 PM PATIENT WEIGHT: 211LBS PATIENT IDENTITY VERIFICATION COMPLETED USING TWO (2) STANDARD IDENTIFIERS: Name and Date of confirmed by patient verbally. FALL SCREENING: Has the patient had 2 falls in the last year or 1 fall with injury or currently using an Ambulatory Assistive Device (Walker, Cane, Wheelchair, Crutches, etc.)? No PATIENT GENDER DATA: Assigned male at ALLERGIES: Reviewed and unchanged CONTRAST ALLERGY: No EXAM: CT -CONTRAST INDUCED NEPHROPATHY RISK FACTORS: Patient age > 60 years and Congestive Heart Failure (CHF) CREATININE: Creatinine Date Value Ref Range Status [...] Range Status 09/23/2021 >60 Final P.O.C.T. RESULTS: Outside Creatinine: 1.56 mg/dl, Calculated GFR 53, Date 10/13/24 November 15, 2024 TREATMENT: No Hydration needed. IV SITE: Ambulatory: A peripheral IV was started in the Right hand with a Angio cath: 22 gauge. IV SITE APPEARANCE: Clean,Dry and Intact SIGNATURE: Meg Mcfarland RN PATIENT NAME: Chiki Juarez DATE: November 15, 2024 TIME: 2:32 PM [facility] 10-21-2024 Note [place] Cardiology - [facility] Subjective Chiki Juarez is a 79 y.o. year old male patient being seen for follow up [facility]. EKG from the ED was questionable for afib, but Dr. Carrera ruled that out. He says his SOB is improving but still not great. Device interrogation done today in the office. Patient Active Problem List Diagnosis Complete AV [...] Pulmonary hypertension (CMS/HCC) Radiation fibrosis of lung Wheezing Decreased ambulation status MGUS (monoclonal gammopathy of unknown significance) Chronic hypoxic respiratory failure (CMS/HCC) Chronic kidney disease, stage 3a (CMS/HCC) Macrocytic anemia Mass of leg JUANA (obstructive sleep apnea) Hyperglycemia Family History Problem Relation Name Age of Onset Stroke Father Social History Tobacco Use Smoking status: Former Types: Cigarettes Substance Use Topics Alcohol use: Never GILDA Chiki is seen in follow-up. He is a 79-year-old man with prior history of COPD and is currently followed at [facility]. He takes multiple inhalers. In June [...] breath. He recently was seen at [facility] pulmonary and was recommended to follow-up [...] daily. He was seen by cardiology at [facility] who also agreed that the shortness of breath is not of a cardiac etiology. His drop tester was treating him with steroids. He also underwent walk test in September 2023 during which his oxygen dropped significantly. He previously underwent further evaluation at [facility] pulmonology and his follow-up PFTs showed improvement. He also had upper and lower extremity duplex venous ultrasounds and VQ scan of the lungs in January 2024 which were negative. He was admitted to the hospital at [place] on 10/11/2024 due to COPD exacerbation and influenza A. Today he reports that he has been improving after the recent hospitalization. He continues to have shortness of breath on exertion NYHA class III-IV symptoms but this is slightly improving since the hospitalization. He does have lower extremity edema. He is taking furosemide and potassium. He has no chest pain and no palpitations. Review of Systems Cardiovascular: Positive for dyspnea on exertion and leg swelling. Respiratory: Positive for cough and shortnes (more content not included)... [facility] 10-14-2024 Telephone encounter Note Please sign pended labs for 6 month f/u if agreeable-will draw with CT 1 week prior Thank You! Gloria Weinberg, RN [facility] 10-14-2024 Miscellaneous Notes Please sign pended labs for 6 month f/u if agreeable-will draw with CT 1 week prior Thank You! Gloria Weinberg RN documented in this encounter [facility] 08-04-2024 History of Present illness Narrative Skin [...] Not examined 1. Capillary angioma Trunk Scattered ayala-red papule(s). The patient was informed that angiomas [...] limited to risks of scarring, darker or rn gyn pigmentary changes, recurrence, incomplete removal and infection. [...] months, skin check documented in this encounter [facility] 06-20-2024 History of Present illness Narrative Subjective [...] OP CDI policy. Malignant neoplasm of prostate (CMS/[facility]) 05/21/2023 Mass of leg 04/15/2024 MGUS (monoclonal gammopathy of unknown significance) 09/09/2023 Microscopic hematuria 05/21/2023 Mixed hyperglyceridemia ([facility]) 05/23/2022 Moderate persistent asthma without complication ([facility]) 05/31/2024 Nasal congestion 05/21/2023 Neuropathy, arm 05/21/2023 Obesity due to excess calories 05/31/2024 JUANA (obstructive sleep apnea) 04/15/2024 Other chronic pain 05/31/2024 Poor urinary stream 05/21/2023 Prostate nodule 05/21/2023 Pulmonary hypertension ([facility]) 07/02/2023 Noted in 05/21/2023 [place] page 1, added per outpatient CDI policy. 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[facility]) 07/02/2023 Recurrent pneumonia 07/17/2021 Severe obesity (BMI 35.0-39.9) with comorbidity ([facility]) 08/03/2020 Ventral hernia 05/21/2023 Wheezing 07/02/2023 Current [...] Partner Violence: Unknown (10/08/2023) Received from [facility] [place] [facility] Fear of Current [...] of distress Assessment/Plan documented in this encounter [facility] 06-13-2024 Telephone encounter Note Patient is scheduled 11/15/24 at 1:30 PM Shea Kolb PSS [facility] 06-13-2024 Miscellaneous Notes Patient is scheduled 11/15/24 at 1:30 PM Shea Kolb PSS notified and transferred to [facility] to schedule CT as recommended prior to return visit with BRM. Valerie Mayes RN A voicemail was left on Chiki's phone to return our call to schedule a CT for November. Shea Kolb PSS Dr Mayra Berg, [facility] called and spoke with BRM yesterday with [...] Valerie Mayes RN documented in this encounter [facility] 06-13-2024 Telephone encounter Note notified and transferred to PSS to schedule CT as recommended prior to return visit with BRM. Valerie Mayes RN [facility] 06-10-2024 Telephone encounter Note A voicemail was left on Chiki's phone to return our call to schedule a CT for November. Shea Kolb PSS [facility] 06-10-[address] Mayra Berg, [facility] called and spoke with BRM yesterday with [...] to return visit 11/21/24 Valerie Mayes RN [facility] 06-09-2024 History of Present illness Narrative Subjective Patient [...] for 10 days. documented in this encounter [facility] 06-05-2024 Note HNO ID: [id number] Author: TYLER DRAPER MD Service: ? Author [...] infection Head: normal (more content not included)... [facility] 06-05-2024 History of Present illness Narrative [...] active disease. 02/01/2024 Bilateral lower extremity Doppscan ([facility]) The RIGHT lower extremity was imaged, assessed [...] Trans x 2.56 cm Sagittal. 12/31/2023 CXR ([facility]) IMPRESSION: 1. No significant interval change and no new or worsening airspace disease. No pleural effusion or pneumothorax. 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 2. Stable cardiomediastinal silhouette. 3. Left chest wall CIED with leads in the right atrium and right ventricle. 4. Unchanged compression deformity in the mid thoracic spine. 09/24/2021 Skeletal bone survey ([facility]) No lytic lesions suggestive of multiple myeloma [...] random TRUS prostate biopsies with prostate adenocarcinoma, [place] 4+3, 3 cores involved out of 9, [...] PCP and pulmonary (Dr. Mayra Berg at [facility]). 6. History of hypothyroidism Continue management per [...] Tyler Draper MD CC: Dr. Mayra Berg, Tentering Machine Off Bearer at [facility] documented in this encounter [facility] 05-31-2024 History of Present illness Narrative [...] 07/17/2021 Severe obesity (BMI 35.0-39.9) with comorbidity (CMS/HCC) 08/03/2020 Ventral hernia 05/21/2023 Wheezing 07/02/2023 Current [...] Partner Violence: Unknown (10/08/2023) Re[facility] from [facility] Safety & Environment Fear of Current or [...] He fully understands. documented in this encounter [facility] 05-17-2024 Note Patient Education Nutrition BMI for [...] for Disease Control and Prevention: cdc.gov ? [place] Heart Association: heart.org ? National Heart, Lung, and Blood [place]: nhlbi.nih.gov This information is not intended to replace advice given to you by your health care provider. Make sure you discuss any questions you have with your health care provider. Document Revised: 04/23/2023 Document Reviewed: 04/16/2023 [employer] Patient Education ? 2023 [employer]. [facility] 05-13-2024 Note [place] Cardiology - [facility] Subjective Chiki Juarez is a 79 y.o. year old male patient being seen for 6 mo follow up c,CANO, hyperlipidemia, and complete AV block s/p PPM. His device was interrogated a few weeks ago in the office. He has completed pulmonary rehab. Says his SOB has slightly improved since last visit in October 2023. His drop tester at [facility] told him his PFT's had [...] COPD and is currently followed at [facility]. He takes multiple inhalers. In June [...] breath. He recently was seen at [facility] pulmonary and was recommended to follow-up [...] daily. He was seen by cardiology at [facility] who also agreed that the shortness of breath is not of a cardiac etiology. His drop tester was treating him with steroids. He also underwent walk test in September 2023 during which his oxygen dropped significantly. He recently underwent further evaluation at [facility] pulmonology and his follow-up PFTs showed improvement. [...] Objective Visit Vitals (more content not included)... [facility] 05-03-2024 History of Present illness Narrative Images [...] limited to risks of scarring, darker or rn gyn pigmentary changes, recurrence, incomplete removal and infection. [...] mo th FBSE documented in this encounter [facility] 04-29-2024 History of Present illness Narrative Radiology [...] 1333 PATIENT DISCHARGED TO: Ambulatory patient, left [place] department area. A Diagnostic radioactive procedure has taken place, with no further precautions necessary other than routine body substance precautions. More information regarding radiation safety can be found using this link: [email or web address] [email or web address]%20Nuclear%20 [email or web address] SIGNATURE: RT Sonya(R) PATIENT NAME: Chiki Juarez DATE: April 29, 2024 TIME: 1:44 PM PAGER/CONTACT #: documented in this encounter [facility] 04-29-2024 Note HNO ID: [id number] Author: GLORIA WEINBERG RN Service: ? Author [...] DATE: April 29, 2024 TIME: 1:35 PM [facility] 04-29-2024 Note HNO ID: [id number] Author: BROOK DONALDSON RT(R) Service: ? Author Type: Technologist [...] safety can be found using this link: [email or web address] [email or web address] 20Diagnostic%20Nuclear%20Medicine%2 0Procedures.[email or web address] SIGNATURE: RT Sonya(R) PATIENT NAME: Chiki Juarez DATE: April 29, 2024 TIME: 1:44 PM PAGER/CONTACT #: [facility] 04-26-2024 Telephone encounter Note Patient is scheduled with MARY Simmons on 05/03/24 @ 11:00. [facility] 04-26-2024 Miscellaneous Notes Patient is scheduled with MARY Simmons on 05/03/24 @ 11:00. Records faxed to [facility]. Rhona: Information ready for you. Jennie Velasquez Please ref patient to [facility]. Dx Skin Lesion blaise facial area. Their office to call the patient to schedule/ Rhona, Please fax records Julius, Please follow up on this appt. documented in this encounter [facility] 04-22-2024 Hospital Discharge instructions Patient Education [...] treatment? Where to find more information The [place] Cancer Society: www.cancer.org Scottish Urological Association: www.auanet.org Contact a health care [...] provider. Document Revised: 01/27/2022 Document Reviewed: 01/27/2022 [employer] Patient Education 2023 [employer]. Follow Up Care 03/09/2023 12:17:11 With:MIKE VENTURA, Oni Sewell, URL Address: [facility] [address] [place] [address]- [phone] When: Unknown [facility] 04-22-2024 Note Patient Education Oncology Prostate Cancer [...] Where to find more information ? The [place] Cancer Society: www.cancer.org ? [employer] Urological Association: www.auanet.org Contact a health care [...] of the rectum. (more content not included)... [facility] 04-20-2024 Telephone encounter Note Records faxed to [facility]. [facility] 04-20-2024 Telephone encounter Note Rhona: Information ready for you. Jennie Velasquez [facility] 04-19-2024 Telephone encounter Note Please ref patient to [facility]. Dx Skin Lesion blaise facial area. Their office to call the patient to schedule/ Rhona, Please fax records Julius, Please follow up on this appt. [facility] 04-18-2024 Note HNO ID: [id number] Author: TYLER DRAPER MD Service: ? Author [...] visit here he followed up with his drop tester at [facility] for 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 For evaluation [...] years and older,, PF, (FLUZONE HIGHDOSE QUAD 20- PF) 240 mcg/0.7 mL injection Fluzone High-Dose [...] No date: COPD (chronic obstructive pulmonary disease) ([facility]) No date: COVID No date: Cystic fibrosis [...] itching. HEMATOLOGY/LYMPHOLOGY: Neg (more content not included)... [facility] 04-18-2024 History of Present illness Narrative PATIENT NAME: Chiki Juarez DATE: 04/19/2024 PRIMARY CARE PHYSICIAN: Dr. Pito Patterosn OTHER PHYSICIANS: Dr. Mayra Berg ([facility]) [...] visit here he followed up with his drop tester at [facility] for 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 For evaluation [...] date: Acute maxillary sinusitis No date: Cancer ([facility]) Comment: Lymphoma No date: Chronic bronchitis with emphysema No date: COPD (chronic obstructive pulmonary disease) ([facility]) No date: COVID No date: Cystic fibrosis gene carrier No date: Dysarthria following nontraumatic intracerebral hemorrhage No date: Hypothyroidism No date: Hypoxemia No date: Multiple myeloma ([facility]) No date: Pulmonary edema No date: Stroke ([facility]) No date: Thyroid disease Comment: aquired due [...] RADIOLOGY/OTHER STUDIES: 02/01/2024 Bilateral lower extremity Doppscan ([facility]) The RIGHT lower extremity was imaged, assessed [...] Trans x 2.56 cm Sagittal. 12/31/2023 CXR ([facility]) IMPRESSION: 1. No significant interval change and no new or worsening airspace disease. No pleural effusion or pneumothorax. 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 2. Stable cardiomediastinal silhouette. 3. Left chest wall CIED with leads in the right atrium and right ventricle. 4. Unchanged compression deformity in the mid thoracic spine. 09/24/2021 Skeletal bone survey ([facility]) No lytic lesions suggestive of multiple myeloma [...] random TRUS prostate biopsies with prostate adenocarcinoma, [place] 4+3, 3 cores involved out of 9, [...] PCP and pulmonary (Dr. Mayra Berg at [facility]). 6. History of hypothyroidism Continue management per [...] Tyler Draper MD CC: Dr. Mayra Berg, Tentering Machine Off Bearer at [facility] documented in this encounter [facility] 02-02-2024 Telephone encounter Note Pt informed of [employer] message and denies any questions, needs or concerns at this time. Appointment verified. Valerie Mayes RN [facility] 02-02-2024 Miscellaneous Notes Pt informed of BRM message and denies any questions, needs or concerns at this time. Appointment verified. Valerie Mayes RN ----- Message from Tyler Draper MD sent at 02/02/2024 8:08 AM EDT ----- Please inform the patient that his labs are stable. We will continue observation and see him back as scheduled. documented in this encounter [facility] 02-02-2024 Telephone encounter Note ----- Message from Tyler Draper MD sent at 02/02/2024 8:08 AM EDT ----- Please inform the patient that his labs are stable. We will continue observation and see him back as scheduled. [facility] 03-31-2023 Hospital Discharge instructions Patient Education [...] MCKEON Address: [facility] [address] [place] [address]- Business (1) When:03/31/2024 11:58:05 Comments:With a renal ultrasound [facility] 03-09-2023 Hospital Discharge instructions Patient Education 03/09/2023 [...] urethra. Follow these instructions at home: Take vvig-vzx-atrnvpl and prescription medicines only as told by [...] provider. Document Revised: 02/19/2022 Document Reviewed: 02/19/2022 [employer] Patient Education 2022 [employer]. Follow Up Care 02/13/2023 11:39:29 With:MIKE VENTURA, Oni Sewell, URL Address: [facility] [address] [place] [address]- [phone] When: Unknown Comments:schedule cysto and renal US1 yr w/ PSA [facility] [place] 08-05-2022 Miscellaneous Notes Informed pt of Dr Draper's message. Pt verbalized understanding and denies further needs at this time. Aby Hernandez RN ----- Message from Tyler Draper MD sent at 08/04/2022 12:29 PM EST ----- Please inform the patient that his PSA is stable at 0.26. We will continue as planned. Thanks, BRM documented in this encounter [facility] 07-25-2022 Miscellaneous Notes Spoke to patient [...] awhile please advise documented in this encounter [facility] 01-16-2022 History of Present illness Narrative [...] random TRUS prostate biopsies with prostate adenocarcinoma, [place] 4+3, 3 cores involved out of 9, [...] and pneumonia, following pulmonology team at [facility]. He has a family history significant [...] PET CR ?Bronchiectasis, follows pulmonology at [facility] Possible cystic fibrosis, follows pulmonology at [facility], genetic testing pending Previous surgeries include a pacemaker in 2019. No family history of hematologic or oncologic issues but significant for cystic fibrosis in brother and nephew; granddaughter is a carrier of cystic fibrosis. Patient lives in [place], [place] with his , Nicolasa. He has 4 children. He has a 45-bxwc-xfph smoking history and quit in 1986. He [...] Thus, a bone marrow biopsy would not acid changer and it is okay to hold [...] CC: Will Sherwood documented in this encounter [facility] 01-09-2022 History of Present illness Narrative [...] random TRUS prostate biopsies with prostate adenocarcinoma, [place] 4+3, 3 cores involved out of 9, [...] and pneumonia, following pulmonology team at [facility]. He has a family history significant [...] PET CR ?Bronchiectasis, follows pulmonology at [facility] Possible cystic fibrosis, follows pulmonology at [facility], genetic testing pending Previous surgeries include a pacemaker in 2020. No family history of hematologic or oncologic issues but significant for cystic fibrosis in brother and nephew; granddaughter is a carrier of cystic fibrosis. Patient lives in [place], [place] with his , Nicolasa. He has 4 children. He has a 51-enwl-edtk smoking history and quit in 1986. He [...] Thus, a bone marrow biopsy would not acid changer and it is okay to hold off for now. PSA stable at 0.30. He will follow up with Dr. Sousa for his history of prostate cancer. Hosea Herrera MD I spent a total of 20 minutes on the date of the service which included preparing to see the patient, slsx-cs-efwy patient care, completing clinical documentation, obtaining and/or reviewing separately obtained history, performing a medically appropriate examination, counseling and educating the patient/family/caregiver, ordering medications, tests, or procedures, independently interpreting results (not separately reported) and communicating results to the patient/family/caregiver. CC: Will Sherwood documented in this encounter [facility] 11-19-2021 Hospital Discharge instructions Patient Education [...] who: Are older than age 65. Are -Scottish. Are obese. Have a family history of [...] cells. Follow these instructions at home: Take hovv-rmz-wkkhuut and prescription medicines only as told by [...] 08/03/2006 Document Revised: 07/16/2018 Document Reviewed: 04/13/2017 [employer] Patient Education 2020 [employer]. Follow Up Care 10/30/2020 10:17:46 With:Young Manriquez MD, Romeo Valles, URO Address: [facility] [address] [place] [address]- [phone] When: Unknown [facility] Evaluation + Plan note Future Appointments Appointment Date:11/25/2022 10:15:00 AM Scheduled Provider:Romeo Vidal Jr., MD Location:[facility] Appointment Type:URO Office Visit [facility] Evaluation + Plan note Future Appointments Appointment Date:01/22/2024 11:00:00 AM Scheduled Provider: [facility] Type:FM Medicare Wellness Subsequent Diagnostic Tests PendingT3 Free 01/26/23 [facility] Evaluation + Plan note Future Appointments Appointment Date:03/24/2023 10:00:00 AM Scheduled Provider: Location:[facility] Appointment Type:Urology CALL PAT FT Appointment Date:03/31/2023 11:15:00 AM Scheduled Provider: Location:[facility] Appointment Type:Urology FT Appointment Date:01/22/2024 11:00:00 AM Scheduled Provider: Location:[facility] Appointment Type:FM Medicare Wellness Subsequent Appointment Date:03/14/2024 11:15:00 AM Scheduled Provider:Oni MCKEON MD [facility] App[facility] Type:URO Office Visit Diagnostic Tests PendingPSA Total 03/09/23 [facility] Evaluation + Plan note Future Appointments Appointment Date:01/22/2024 11:00:00 AM Scheduled Provider: [facility] Appoint[facility] Type:FM Medicare Wellness Subsequent Appointment Date:03/14/2024 11:15:00 AM Scheduled Provider:Oni MCKEON MD [facility] Appointment Type:URO Office Visit [facility] Evaluation + Plan note Future Appointments Appointment Date:12/02/2023 01:00:00 PM Scheduled Provider:Pito Patterson MD Location:[facility] Appointment Type:FM Open Appointment Date:01/18/2024 01:00:00 PM Scheduled Provider:Pito Patterson MD Location:[facility] Appointment Type:FM Open Appointment Date:01/22/2024 11:00:00 AM Scheduled Provider: Location:[facility] Appointment Type: Medicare Wellness Subsequent Appointment Date:03/14/2024 11:15:00 AM Scheduled Provider:Oni MCKEON MD Location:[facility] Appointment Type:URO Office Visit [facility] Evaluation + Plan note Future Appointments Appointment Date:05/17/2024 10:00:00 AM Scheduled Provider:Pito Patterson MD Location:[facility] Appointment Type: Open Appointment Date:02/14/2025 08:00:00 AM Scheduled Provider: Location:[facility] Appointment Type: Medicare Wellness Subsequent Appointment Date:04/24/2025 09:45:00 AM Scheduled Provider:Oni MCKEON MD Location:[facility] Appointment Type:URO Office Visit Diagnostic Tests PendingPSA Total 04/22/24 [facility] Evaluation + Plan note Future Appointments Appointment Date:04/24/2025 09:45:00 AM Scheduled Provider:Oni MCKEON MD Location:[facility] Appointment Type:URO Office Visit Appointment Date:02/15/2026 09:30:00 AM Scheduled Provider: Location:[facility] Appointment Type: Medicare Wellness Subsequent Diagnostic Tests PendingHCV Antibody RFX to Quant PCR 02/16/25 [facility] Evaluation note Diagnosis MGUS (monoclonal gammopathy of unknown significance)- Primary Monoclonal paraproteinemia [facility] Diagnosis B12 deficiency- Primary Other B-complex deficiencies Diffuse large B-cell lymphoma, unspecified body region (HCC) [facility] Diagnosis MGUS (monoclonal gammopathy of unknown significance)- Primary Monoclonal paraproteinemia Macrocytic anemia Unspecified deficiency anemia [facility] Diagnosis MGUS (monoclonal gammopathy of unknown significance)- Primary Monoclonal paraproteinemia History of lymphoma Personal history of other lymphatic and hematopoietic neoplasm Lymph node enlargement Enlargement of lymph nodes Skin lesion of face Unspecified disorder of skin and subcutaneous tissue [facility] History of lymphoma Personal history of other lymphatic and hematopoietic neoplasm Lymph node enlargement Enlargement of lymph nodes [facility] Diagnosis Squamous cell carcinoma of scalp- Primary Other malignant neoplasm of scalp and skin of neck 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 documented in this encounter [facility] HealthcareEvaluation noteNo assessment information availableSum[facility] Work Phone: Evaluation note* Diagnosis MGUS (monoclonal gammopathy of unknown significance)- Primary Monoclonal paraproteinemia History of lymphoma Personal history of other lymphatic and hematopoietic neoplasm History of prostate cancer Personal history of malignant neoplasm of prostate Skin lesion of face Unspecified disorder of skin and subcutaneous tissue [facility] Diagnosis Wound infection- Primary Posttraumatic wound infection not elsewhere classified Squamous cell carcinoma of scalp Other malignant neoplasm of scalp and skin of neck [facility] Diagnosis Localized enlarged lymph nodes- Primary Enlargement of lymph nodes [facility] Diagnosis Squamous cell carcinoma of scalp- Primary Other malignant neoplasm of scalp and skin of neck Wound infection Posttraumatic wound infection not elsewhere classified Thyroid nodule (CMS/HCC) Nontoxic uninodular goiter [facility] Diagnosis Hemangioma of skin and subcutaneous tissue- Primary Neoplasm of unspecified behavior of bone, soft tissue, and skin Seborrheic keratosis Actinic keratosis documented in this encounter [facility] HealthcareEvaluation note* Diagnosis Capillary angioma- Primary Nevus, non-neoplastic Melanocytic nevus of trunk Benign neoplasm of skin of trunk, except scrotum Seborrheic keratosis Actinic keratosis History of SCC (squamous cell carcinoma) of skin Personal history of other malignant neoplasm of skin Lentigo simplex Other dyschromia [facility] Diagnosis Diffuse large B-cell lymphoma, unspecified body region (HCC)- Primary [facility] Diagnosis Localized enlarged lymph nodes Enlargement of lymph nodes Diffuse large B-cell lymphoma, unspecified body region (HCC) [facility] Diagnosis MGUS (monoclonal gammopathy of unknown significance)- Primary Monoclonal paraproteinemia History of prostate cancer Personal history of malignant neoplasm of prostate Acquired hypothyroidism Unspecified hypothyroidism [facility]* Diagnosis Melanocytic nevus of trunk- Primary Benign neoplasm of skin of trunk, except scrotum History of SCC (squamous cell carcinoma) of skin Personal history of other malignant neoplasm of skin Seborrheic keratosis Actinic keratosis Ayala angioma Other seborrheic dermatitis documented in this encounter [facility] HealthcareHospital course Narrative No data available for this section [facility] Hospital Discharge instructions No data available for this section [facility] Additional Instructions No exertional activity [...] or concerns Follow-up in the office as [facility] Work Phone: Progress note No data available for this section [facility] Summary Purpose Family History No Family History Records Found Relationship Condition Age at Onset Recorded Date/T ruma mother Malignant neoplasm of lung Unknown Unknown Advance Directives No Advanced Directives Records Found Advance Directive Response Recorded Date/ Time Advance Directives No June 01, 2024 10:37am Hospital Course Note MR#: [id number] [facility] Pt. Name: Chiki Juarez Admitted: 06/26/2020 Discharged: [...] asthma, lymphoma, and hypothyroidism, who transferred to [facility] for evaluation of poss (more content not included)... Reason for Referral Specialty Diagnoses / Procedures Referred By Chelsie t Referred To Contact CT IMAGING Diagnoses Localized enlarged lymph nodes Procedures CT CHEST W IVCON DIAGNOSTIC COMPUTED TOMOGRAPHY THORAX W/CONTRAST Tyler Draper MD [address] [place] [address] [place] [address] Ct [facility] [place] [address] Referral ID Status Reason Start Date Expiration Date Visits Requested Visits Authorized [id number] Authorized Auto-Generat ed Referral 11/15/2024 07/10/2025 1 1 Specialty Diagnoses / Procedures Referred By Chelsie t Referred To Contact Dermatology Diagnoses Skin lesion of face Procedures CONSULT TO DERMATOLOGY OFFICE/OUTPATIENT [facility] 60 MINUTES Tyler Draper MD [address] [place] [address] [place] [address] Referral ID Status Reason Start Date Expiration Date Visits Requested Visits Authorized [id number] Authorized PCP Requested Referral 04/19/2024 04/19/2025 1 1 Specialty Diagnoses / Procedures Referred By Chelsie simon Referred To Contact MOLECULAR & FUNCTIONAL IMAGING Diagnoses History of lymphoma Lymph node enlargement Procedures NM PET/CT SKULL-THIGH SUBSEQUENT PET IMAGING CT ATTENUATION SKULL BASE MID-THIGH Tyler Draper MD [address] [place] [address] [place] [address] Molecular & Functional Imaging [address] [place] [address] Referral ID Status Reason Start Date Expiration Date Visits Requested Visits Authorized [id number] Authorized Auto-Generat ed Referral 04/19/2024 05/19/2025 1 [...] and content) DATE CREATED AUTHOR 07/16/2020 [facility] DATE CREATED AUTHOR AUTHOR'S ORGANIZ ATION 04/26/2022 [facility] DATE CREATED AUTHOR AUTHOR'S ORGANIZ ATION 10/16/2024 [facility] DATE CREATED AUTHOR AUTHOR'S ORGANIZ ATION 11/24/2024 [facility] DATE CREATED AUTHOR AUTHOR'S ORGANIZ ATION 02/05/2025 [facility] DATE CREATED AUTHOR AUTHOR'S ORGANIZ ATION 02/19/2025 [facility] DATE CREATED AUTHOR AUTHOR'S ORGANIZ ATION 02/22/2025 [facility] DATE CREATED AUTHOR AUTHOR'S ORGANIZ ATION 02/27/2025 [facility] DATE CREATED AUTHOR AUTHOR'S ORGANIZ ATION 03/03/[address] [facility] Source Comments (unrecognize d section and content) In the event this informatio n is protected by the Federal Confidentiality of Alcohol and Drug Abuse Patient Records regulations: The Federal rules restrict any use of the information to criminally investigate or prosecute any alcohol or drug abuse patient.[facility] the event this information is protected by the Federal Confidentiality of Alcohol and Drug Abuse Patient Records regulations: The Federal rules restrict any use of the information to criminally investigate or prosecute any alcohol or drug abuse patient.[facility] Hospital[facility] the event this information is protected by the Federal Confidentiality of Alcohol and Drug Abuse Patient Records regulations: The Federal rules restrict any use of the information to criminally investigate or prosecute any alcohol or drug abuse patient.[facility] HospitalIn the event this information is protected by the Federal Confidentiality of Alcohol and Drug Abuse Patient Records regulations: The Federal rules restrict any use of the information to criminally investigate or prosecute any alcohol or drug abuse patient.[facility] Hospital[facility] the event this information is protected by the Federal Confidentiality of Alcohol and Drug Abuse Patient Records regulations: The Federal rules restrict any use of the information to criminally investigate or prosecute any alcohol or drug abuse patient.[facility] Hospital[facility] the event this information is protected by the Federal Confidentiality of Alcohol and Drug Abuse Patient Records regulations: The Federal rules restrict any use of the information to criminally investigate or prosecute any alcohol or drug abuse patient.[facility] Hospital[facility] the event this information is protected by the Federal Confidentiality of Alcohol and Drug Abuse Patient Records regulations: The Federal rules restrict any use of the information to criminally investigate or prosecute any alcohol or drug abuse patient.[facility] HospitalIn the event this information is protected by the Federal Confidentiality of Alcohol and Drug Abuse Patient Records regulations: The Federal rules restrict any use of the information to criminally investigate or prosecute any alcohol or drug abuse patient.[facility] HospitalIn the event this information is protected by the Federal Confidentiality of Alcohol and Drug Abuse Patient Records regulations: The Federal rules restrict any use of the information to criminally investigate or prosecute any alcohol or drug abuse patient.[facility] HospitalIn the event this information is protected by the Federal Confidentiality of Alcohol and Drug Abuse Patient Records regulations: The Federal rules restrict any use of the information to criminally investigate or prosecute any alcohol or drug abuse patient.[facility] HospitalIn the event this information is protected by the Federal Confidentiality of Alcohol and Drug Abuse Patient Records regulations: The Federal rules restrict any use of the information to criminally investigate or prosecute any alcohol or drug abuse patient.[facility] HospitalIn the event this information is protected by the Federal Confidentiality of Alcohol and Drug Abuse Patient Records regulations: The Federal rules restrict any use of the information to criminally investigate or prosecute any alcohol or drug abuse patient.[facility] HospitalIn the event this information is protected by the Federal Confidentiality of Alcohol and Drug Abuse Patient Records regulations: The Federal rules restrict any use of the information to criminally investigate or prosecute any alcohol or drug abuse patient.[facility] Hospital[facility] the event this information is protected by the Federal Confidentiality of Alcohol and Drug Abuse Patient Records regulations: The Federal rules restrict any use of the information to criminally investigate or prosecute any alcohol or drug abuse patient.[facility] HospitalIn the event this information is protected by the Federal Confidentiality of Alcohol and Drug Abuse Patient Records regulations: The Federal rules restrict any use of the information to criminally investigate or prosecute any alcohol or drug abuse patient.[facility] Reason for Visit (unrecogniz ed section [...] ATTENUATION SKULL BASE MID-THIGH Tyler Draper MD [address] [place] [address] [place] [address] Molecular & Functional Imaging [address] [place] [address] Referral ID Status Reason Start Date Expiration Date V isits Requested Visits Authorized [id number] Closed Auto-Generate d Referral 04/19/2024 05/19/2025 1 1 Reason Comments Suspicious Skin Lesion New patient : SCC left cheek / right scalp Specialty Diagnoses / Procedures Referred By Chelsie simon Referred To Contact Otolaryngology Diagnoses 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 Procedures CT OFFICE/OUTPATIENT NEW HIGH MDM 60 MINUTES Crys Taylor PA [address] [place] [address] Phone: tel: fax: Connor Crawley, DO [address] [place] [address] Phone: tel: fax: Referral ID Status Reason Start Date Expiration Date V isits Requested Visits Authorized [id number] Closed Specialty Services Required 05/09/2024 11/05/2024 1 1 Reason Comments 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) Reason Comments Post-op Post op exc SCC scal p Reason Comments Pet results Reason Comments Post-op Specialty Diagnoses / Procedures Referred By Contac t Referred To Contact Dermatology Diagnoses skin lesion of face Procedures office visit Tyler Draper MD [address] [place] [address] Lucie Tompkins MD [address] [facility] [address] [place] [address] Referral ID Status Reason Start Date Expiration Date Visits Re quested Visits Authorized [id number] Closed 04/21/2024 10/18/2024 1 1 Reason Comments Skin Check Reason Comments Orders Reason Comments Radiology CT Specialty Diagnoses / Procedures Referred By Contac t Referred To Contact CT IMAGING Diagnoses Localized enlarged lymph nodes Procedures CT CHEST W IVCON DIAGNOSTIC COMPUTED TOMOGRAPHY THORAX W/CONTRAST Tyler Draper MD [address] [place] [address] Phone: tel: fax: [place] [address] Referral ID Status Reason Start Date Expiration Date V isits Requested Visits Authorized [id number] Closed Auto-Generate d Referral 11/15/2024 07/10/2025 1 1 Reason Comments MGUS Reason Onset Date Comments TSH results 11/24/2024 Care Teams (unrecognized sec tion and content) Chief Informatics Officer Relationship Specialty Start Date End Date Will Sherwood MD [address] [place] [address] PCP - General 08/01/05 Chief Informatics Officer Relationship Specialty Start Date End Date Will Sherwood MD [address] [place] [address] PCP - General 08/01/05 Chief Informatics Officer Relationship Specialty Start Date End Date Will Sherwood MD [address] [place] [address] PCP - General 08/01/05 Chief Informatics Officer Relationship Specialty Start Date End Date Will Sherwood MD [address] [place] [address] PCP - General 08/01/05 Chief Informatics Officer Relationship Specialty Start Date End Date Pito Patterson MD [address] [place] [address] PCP - General Family Medicine 07/23/23 Chief Informatics Officer Relationship Specialty Start Date End Date Pito Patterson MD [address] [place] [address] PCP - General Family Medicine 07/23/23 Chief Informatics Officer Relationship Specialty Start Date End Date Pito Patterson MD [address] [place] [address] PCP - General Family Medicine 07/23/23 Chief Informatics Officer Relationship Specialty Start Date End Date Pito Patterson MD [address] [place] [address] PCP - General Family Medicine 07/23/23 Chief Informatics Officer Relationship Specialty Start Date End Date Unallocated, Noms MD [address] [place] [address] PCP - General Family Medicine 04/08/23 Crys Taylor PA [address] [place] [address] Physician Automated [facility] 05/31/24 Connro Crawley DO [address] [place] [address] Otolaryngology 05/31/24 Chief Informatics Officer Relationship Specialty Start Date End Date Pito Patterson MD [address] [place] [address] PCP - General Family Medicine 05/31/24 Crys Taylor PA [address] [place] [address] Physician [facility]ated [facility] 05/31/24 Connor Crawley DO [address] [place] [address] Otolaryngology 05/31/24 Team Status: Active Member Role Status Dates Pito Patterson MD Primary Care Provider Active Team Status: Inactive Member Role Status Dates Connor Crawley DO Attending Provider Active S tart: June 01, 2024 End: June 01, 2024 Pito Patterson MD Primary Care Provider Active Start: June 01, 2024 End: June 01, 2024 Chief Informatics Officer Relationship Specialty Start Date End Date Pito Patterson MD [address] [place] [address] PCP - General Family Medicine 05/31/24 Crys Taylor PA [address] [place] [address] Physician Automated [facility] 05/31/24 Connor Crawley DO [address] [place] [address] Otolaryngology 05/31/24 Chief Informatics Officer Relationship Specialty Start Date End Date Pito Patterson MD [address] [place] [address] PCP - General Family Medicine 07/23/23 Chief Informatics Officer Relationship Specialty Start Date End Date Pito Patterson MD [address] [place] [address] PCP - General Family Medicine 05/31/24 Crys Taylor PA [address] [place] [address] Physician Automated [facility] 05/31/24 Connor Crawley DO [address] [address] Otolaryngology 05/31/24 Chief Informatics Officer Relationship Specialty Start Date End Date Unallocated, Mohit Galvan MD [address] [place] [address] PCP - General Family Medicine 04/08/23 Chief Informatics Officer Relationship Specialty Start Date End Date Unallocated, Mohit Galvan MD [address] [facility] [address] PCP - General Family Medicine 04/08/23 Chief Informatics Officer Relationship Specialty Start Date End Date Pito Patterson MD [address] [place] [phone] PCP - General Family Medicine 05/31/24 Crys Taylor PA [address] [place] [address] Physician Automated [facility] 05/31/24 Connor Crawley DO [address] [place] [address] Otolaryngology 05/31/24 Chief Informatics Officer Relationship Specialty Start Date End Date Pito Patterson MD [address] [place] [address] PCP - General Family Medicine 07/23/23 Chief Informatics Officer Relationship Specialty Start Date End Date Pito Patterson MD [address] [place] [address] PCP - General Family Medicine 07/23/23 Chief Informatics Officer Relationship Specialty Start Date End Date Pito Patterson MD [address] [place] [address] PCP - General Family Medicine 07/23/23 Chief Informatics Officer Relationship Specialty Start Date End Date Pito Patterson MD [address] [place] [address] PCP - General Family Medicine 07/23/23 Chief Informatics Officer Relationship Specialty Start Date End Date Pito Patterson MD [address] [place] [address] PCP - General Family Medicine 05/31/24 Crys Taylor PA [address] [place] [address] Physician Automated [facility] 05/31/24 Connor Crawley DO [address] [place] [address] Otolaryngology 05/31/24 Chief Informatics Officer Relationship Specialty Start Date End Date Pito Patterson MD [address] [place] [address] PCP - General Family Medicine 05/31/24 Crys Taylor PA [address] [place] [address] Physician Automated [facility] 05/31/24 Connor Crawley DO [address] [place] [address] Otolaryngology 05/31/24 FOR RECORDS PERTAINING TO PATIENTS [...] BE BASED ON THE PRIMARY CLINICAL RECORDS. [facility]. provides no warranty or guarantee of the accuracy or completeness of information in this document.
--- NOTE | 2025-03-03 08:00 | ECG_ITS ---
[facility] Test Date: 2025-03-03 Pat Name: CHIKI FOLEY Department: Room: [facility] Gender: Male Ict Teacher: : 1945 Requested By: [id number] Order Number: [id number] [place] MD: BENJAMIN LEROY Measurements Intervals [place] Rate: 85 P: 85 DC: 167 QRS: -71 QRSD: 150 T: 55 QT: 430 QTc: 513 Interpretive Statements ELECTRONIC VENTRICULAR PACEMAKER ABNORMAL RHYTHM ECG Compared to ECG 03/02/2025 13:08:39 Sinus rhythm no longer present Myocardial infarct finding no longer present Left-axis deviation no longer present Electronically Signed On 03-03-2025 10:07:08 EDT by BENJAMIN LEROY
[2025-03-03] MEDS: MONTELUKAST SODIUM 10 MG TABLET PO (08:36)
[2025-03-03] MEDS: ASPIRIN 81 MG TAB.CHEW PO (08:36)
[2025-03-03] MEDS: DOXYCYCLINE MONOHYDRATE 100 MG CAPSULE PO ×2 (08:36→21:01)
[2025-03-03] MEDS: ENOXAPARIN SODIUM 40 MG/0.4 ML SYRINGE SUBQ (08:36)
--- NOTE | 2025-03-03 09:20 | CM.NOTE ---
Rounds made with Dr. Ritter, discussed with pt diagnosis and plan of care. Pt in OBS status discussed with Dr. Ritter, pt will be changed to inpatient status.
[2025-03-03] MEDS: IPRATROPIUM/ALBUTEROL SULFATE 3 ML AMPUL.NEB IH ×3 (09:49→20:39)
[2025-03-03] MEDS: BUDESONIDE 0.5 MG/2 ML AMPULE NEB IH ×2 (09:49→20:39)
--- NOTE | 2025-03-03 11:16 | PM.HP ---
HPI H&P: HPI History of Present Illness Chief complaint: CHF EXACERBATION Narrative: Mr. Juarez is a 79-year-old gentleman with a known diagnosis of chronic hypoxic respiratory failure for which he is on 4 L. Questionable cystic fibrosis versus COPD versus, remission. Patient also is known to have heart disease. Cardiac dysrhythmia status post pacemaker. Patient came in with worsening shortness of breath, cough productive to yellowish sputum. No fever or chills. No chest pain or palpitation. No abdominal pain, nausea or vomiting. Chronic and progressive low back pain. No focal weakness or numbness. No sudden or acute weakness or numbness. Opioid HPI Opioid Management Most Recent Pain and Opioid Data: Last Pain Scale 0 Today, 06:10 Last Pain Assessment 03/02/25, 16:10 Last MAR Pain Assessment 03/02/25, 17:36 Last ORT Total Score 3 03/02/25, 16:10 Last ORT Risk Category Low Risk 03/02/25, 16:10 Review of Systems ROS Status of ROS 10 or more systems reviewed and unremarkable except as noted in history and below [facility] Medical History (Updated 03/03/25 @ 11:18 by Patrick Ritter MD) Lymphoma ?C85.90 - Non-Hodgkin lymphoma, unspecified, unspecified site (ICD-10) Pacemaker ?Z95.0 - Presence of cardiac pacemaker (ICD-10) Family History (Updated 03/02/25 @ 17:00 by Mayra Ríos) Brother Family history of cancer Social History (Updated 03/02/25 @ 17:02 by Mayra Ríos) Within the past year, how often did you have a drink containing alcohol: never Within the past year, how often did you have six or more drinks on one occasion: never Score interpretation: A score less than 4 is consistent with normal alcohol consumption. 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 Known occupational exposures/hazards: No Highest level of school completed/degree received: high school graduate Do you want help with school or training: No Are you now , , , , never or living with a partner: In a typical week, how many times do you talk on the telephone with family, friends, or neighbors: 3 or more times per week How often do you get together with friends or relatives: 3 or more times per week How often do you attend rastafarian or sabianist services: never Do you belong to any clubs or organizations such as rastafarian groups unions, fraternal or athletic groups, or school groups: no Total score: 2 Score interpretation: A score of greater than or equal to 2 indicates the lowest level of social isolation. Little interest or pleasure in doing things: not at all Feeling down, depressed, or hopeless: not at all Feel stressed/tense/nervous/anxious/difficulty sleeping: not at all Due to disability, difficulty making decisions: No Do you think of yourself as: straight/heterosexual Gender Identity: male Meds Home Medications and Allergies Home Medications ?Medication ?Instructions ?Recorded ?Confirmed ?Type albuterol sulfate 2.5 mg/3 mL 2.5 mg inhalation Q4H PRN 10/11/24 03/02/25 History (0.083 %) solution for nebulization shortness of breath or wheezing aspirin 81 mg capsule 81 mg PO DAILY 10/11/24 03/02/25 History calcium 1,200 mg PO DAILY 10/11/24 03/02/25 History cholecalciferol (vitamin D3) 25 25 mcg PO DAILY 10/11/24 03/02/25 History mcg (1,000 unit) capsule (Vitamin D3) cyanocobalamin (vitamin B-12) 5,000 mcg sublingual DAILY 10/11/24 03/02/25 History 5,000 mcg sublingual tablet (Vitamin B-12) salmeterol 50 mcg/dose blister 1 inh inhalation BID 10/11/24 03/02/25 History powder for inhalation (Serevent Diskus) sodium chloride 3.5 % for 4 ml inhalation BID 10/11/24 03/02/25 History nebulization (Hyper-Flaco) metoprolol succinate 25 mg 25 mg PO QD #30 tabs 10/14/24 03/02/25 Rx tablet,extended release 24 hr montelukast 10 mg tablet 10 mg PO DAILY 03/02/25 03/02/25 History tezepelumab-ekko 210 mg/1.91 mL 210 mg subcut .qmonthly 03/02/25 03/02/25 History (110 mg/mL) subcutaneous pen injector (Tezspire) tiotropium bromide 18 mcg capsule 1 cap inhalation DAILY 03/02/25 03/02/25 History with inhalation device budesonide 1 mg/2 mL suspension 1 mg inhalation Q12H 03/03/25 03/03/25 History for nebulization furosemide 40 mg tablet 40 mg PO DAILY 03/03/25 03/03/25 History levothyroxine 112 mcg tablet 112 mcg PO .acb 03/03/25 03/03/25 History potassium chloride 10 mEq 10 meq PO DAILY 03/03/25 03/03/25 History capsule,extended release Allergies Allergy/AdvReac Type Severity Reaction Status Date / Time No Known Drug Allergies Allergy Verified 03/02/25 13:07 Exam Narrative Exam Narrative: Patient is sitting in bed. Tachypneic. Respirate is about 24. Unable to complete sentences. Neck is supple. No JVD. Chest exam revealed fine crackles, expiratory wheezing. Heart is regular. Pacemaker felt in the left upper quadrant of the chest. Abdomen soft, nontender. Lower extremities no edema. Functional impairment. Please refer to physical Occupational Therapy team note for details on his functional status and treatment plan Constitutional Vital Signs, click to edit/add: Last Vital Signs Temp 97.5 F L 03/03/25 08:22 Pulse 99 H 03/03/25 10:00 Resp 16 03/03/25 08:22 BP 108/43 L 03/03/25 08:22 Pulse Ox 94 L 03/03/25 09:56 O2 Del Method Nasal Cannula 03/03/25 09:56 O2 Flow Rate 4 03/03/25 09:56 Results Labs Labs: Short CBC 03/02/25 03/03/25 Range/Units 13:25 05:48 WBC 12.9 H 7.6 (4.0-11.0) 10^3/uL Hgb 10.6 L 10.2 L (14.0-18.0) g/dL Hct 32.8 L 32.1 L (42.0-54.0) % Plt Count 125 L 123 L (150-450) 10^3/uL BMP 03/02/25 03/03/25 13:25 05:48 Sodium 142 145 Potassium 3.8 4.2 Chloride 108 H 108 H Carbon Dioxide 26.1 23.8 BUN 23.0 H 30.0 H Creatinine 1.66 H 1.69 H Glucose 115 H 157 H Calcium 8.8 8.7 Liver Function 03/02/25 03/03/25 Range/Units 13:25 05:48 Total Bilirubin 0.6 0.5 (0.2-1.0) mg/dL AST 22 14 L (15-37) U/L ALT 23 20 (16-63) U/L Alkaline Phosphatase 132 H 121 H (46-116) U/L Albumin 2.8 L 2.7 L (3.4-5.0) g/dL Urine 03/02/25 Range/Units 14:14 Urine Color Lt. yellow (YELLOW) Urine Clarity Clear (CLEAR) Urine pH 6.0 (5.0-9.0) Ur Specific [place] 1.010 (1.005-1.025) Urine Protein Negative (NEG/TRACE) mg/dL Urine Glucose (UA) Negative (NEGATIVE) mg/dL Assessment and Plan Assessment and Plan (1) Bacterial pneumonia: (2) Pulmonary hypertension: (3) COPD with acute exacerbation: (4) CKD (chronic kidney disease): (5) Chronic hypoxic respiratory failure: (6) Scarring of lung: (7) Multifactorial functional impairment: (8) Lumbar compression fracture: Plan Acute shortness of breath, acute on chronic hypoxic respiratory failure. Patient is on 4 L at home Likely multifactorial secondary to developing pneumonia in the right upper lobe (haziness seen on CT chest ) Underlying parenchymal lung disease. Probable COPD versus pulmonary fibrosis versus others. (Patient stated that his service observer mentioned cystic fibrosis ?? ) Pulmonary hypertension Status post radiation and treatment of the lymph node in the chest for lymphoma many years ago. I started the patient on intravenous ceftriaxone and doxycycline. Influenza, RSV and COVID are negative Corticosteroid Albuterol, Atrovent. The patient euvolemic state Patient is to follow-up with his service observer postdischarge Diastolic heart failure, history of cardiac dysrhythmia status post pacemaker Patient is in a near euvolemic state. Continue maintenance Lasix 40 mg daily Continue small dose beta-luis eduardo Patient is not on anticoagulation. He is only on aspirin. CKD stage III, near baseline. Continue maintenance diuretics to keep him in a euvolemic state L1 and L3 compression fracture Unknown duration, probable subacute I suspect the patient has osteoporosis. Recommend DEXA scan in the outpatient setting and initiation of bisphosphonate treatment Check vitamin D level to rule out vitamin D deficiency Anemia, no evidence of acute blood loss. Patient will likely require to have anemia workup to be done in the outpatient setting to be handled by PCP in collaboration with other needed outpatient providers. This may include but not limited to EGD, colonoscopy, referral to see hematology and other needed age-appropriate cancer screening. History of lymphoma status postradiation treatment, history of CVA with residual dysarthria, weakness and functional decline Continue aspirin. PT OT eval and treatment. Chronic medical conditions not listed above, incidental findings seen on labs and imaging. Patient has multi system involvement complexity and follows up with cardiology, pulmonary, medical policy specialist in [place] and in [place]. These would need to be addressed. Could be addressed when time and condition are appropriate. Could be addressed in the outpatient setting by PCP collaboration with other needed outpatient providers.
[2025-03-03] MEDS: METHYLPREDNISOLONE SOD SUCC PF 40 MG/ML VIAL IVP ×2 (11:54→22:39)
[2025-03-03] MEDS: 0.9 % SODIUM CHLORIDE 250 ML 10 ML IV (13:22)
--- NOTE | 2025-03-03 15:21 | SWNOTE1 ---
Important Message from Medicare discussed with pt. Pt verbalized understanding and signed form. Copy placed in pt's chart and original given to pt.
[2025-03-03] MEDS: CODEINE 10 MG/GUAIFENESIN 100 MG 5 ML ORAL SYRINGE 10 ML PO (21:59)
[2025-03-04] VITALS (19 sets, daily range): BP systolic 111–154; BP diastolic 57–81; PULSE 18–93; TEMP 36.5–36.7; O2SAT 91–95
[2025-03-04] MEDS: CODEINE 10 MG/GUAIFENESIN 100 MG 5 ML ORAL SYRINGE 10 ML PO ×3 (05:33→20:28)
[2025-03-04] MEDS: LEVOTHYROXINE SODIUM 112 MCG TABLET PO (05:33)
[2025-03-04 06:13] LABS: Hematocrit 32.1 % (42.0-54.0); Hemoglobin 10.3 g/dL (14.0-18.0); Mean Corpuscular HGB Conc 32.1 g/dL (29.9-35.2); Mean Corpuscular Hemoglobin 34.0 pg (25.9-34.0); Mean Corpuscular Volume 105.9 fL (80.0-94.0); Platelet Count 142 10^3/uL (150-450); White Blood Count 8.6 10^3/uL (4.0-11.0)
[2025-03-04 06:47] LABS: Red Blood Count 3.03 10^6/uL (4.70-6.10)
[2025-03-04 06:48] LABS: Anion Gap 17.0; Blood Urea Nitrogen 39.0 mg/dL (7.0-18.0); Calcium 8.8 mg/dL (8.5-10.1); Carbon Dioxide 25.4 mmol/L (21.0-32.0); Chloride 106 mmol/L (98-107); Estimated GFR (African America 54 (>=60 mL/min/1.73m^2); Estimated GFR (Non-African Ame 45 (>=60 mL/min/1.73m^2); Glucose 169 mg/dL (74-106); Potassium 4.4 mmol/L (3.5-5.1); Sodium 144 mmol/L (136-145); Thyroid Stimulating Hormone 1.965 uIU/mL (0.358-3.740)
[2025-03-04] MEDS: ENOXAPARIN SODIUM 40 MG/0.4 ML SYRINGE SUBQ (09:01)
[2025-03-04] MEDS: METOPROLOL SUCCINATE 25 MG TAB.ER.24H PO (09:01)
[2025-03-04] MEDS: MONTELUKAST SODIUM 10 MG TABLET PO (09:01)
[2025-03-04] MEDS: FUROSEMIDE 40 MG TABLET PO (09:01)
[2025-03-04] MEDS: SENNOSIDES/DOCUSATE SODIUM 1 TAB TABLET PO (09:01)
[2025-03-04] MEDS: DOCUSATE SODIUM 100 MG CAPSULE PO (09:01)
[2025-03-04] MEDS: ASPIRIN 81 MG TAB.CHEW PO (09:01)
[2025-03-04] MEDS: DOXYCYCLINE MONOHYDRATE 100 MG CAPSULE PO ×2 (09:01→20:27)
[2025-03-04] MEDS: IPRATROPIUM/ALBUTEROL SULFATE 3 ML AMPUL.NEB IH ×3 (10:00→20:28)
[2025-03-04] MEDS: BUDESONIDE 0.5 MG/2 ML AMPULE NEB IH ×2 (10:00→20:28)
--- NOTE | 2025-03-04 10:01 | PM.PN ---
Progress Note: Subjective Subjective Interval history: Patient is feeling better. Less cough and congestion. Less shortness of breath. No chest pain. No abdominal pain. Exam Narrative Exam Narrative: Patient is sitting in bed. Tachypneic. Respirate is about 24. Unable to complete sentences. Neck is supple. No JVD. Chest exam revealed fine crackles, expiratory wheezing. Heart is regular. Pacemaker felt in the left upper quadrant of the chest. Abdomen soft, nontender. Lower extremities no edema. Functional impairment. Please refer to physical Occupational Therapy team note for details on his functional status and treatment plan Constitutional Vital Signs, click to edit/add: Last Vital Signs Temp 97.8 F 03/04/25 07:46 Pulse 75 03/04/25 07:55 Resp 18 03/04/25 07:46 BP 138/60 03/04/25 07:46 Pulse Ox 93 L 03/04/25 07:46 O2 Del Method Nasal Cannula 03/04/25 07:46 O2 Flow Rate 4 03/04/25 07:46 Progress Note: Objective Labs Labs: Short CBC 03/04/25 Range/Units 05:45 WBC 8.6 (4.0-11.0) 10^3/uL Hgb 10.3 L (14.0-18.0) g/dL Hct 32.1 L (42.0-54.0) % Plt Count 142 L (150-450) 10^3/uL BMP 03/04/25 05:45 Sodium 144 Potassium 4.4 Chloride 106 Carbon Dioxide 25.4 BUN 39.0 H Creatinine 1.52 H Glucose 169 H Calcium 8.8 Progress Note: A&P Assessment and Plan (1) Bacterial pneumonia: (2) Pulmonary hypertension: (3) COPD with acute exacerbation: (4) CKD (chronic kidney disease): (5) Chronic hypoxic respiratory failure: (6) Scarring of lung: (7) Multifactorial functional impairment: (8) Lumbar compression fracture: Plan Acute shortness of breath, acute on chronic hypoxic respiratory failure. Patient is on 4 L at home Likely multifactorial secondary to developing pneumonia in the right upper lobe (haziness seen on CT chest ), probable right lower lobe Underlying parenchymal lung disease. Probable COPD versus pulmonary fibrosis versus others. (Patient stated that his supervisor mixing mentioned cystic fibrosis ?? ) Pulmonary hypertension Status post radiation and treatment of the lymph node in the chest for lymphoma many years ago. I started the patient on intravenous ceftriaxone and doxycycline. Influenza, RSV and COVID are negative Corticosteroid Albuterol, Atrovent. The patient euvolemic state Patient is feeling better. Continue current treatment plan Patient is to follow-up with his supervisor mixing postdischarge Diastolic heart failure, history of cardiac dysrhythmia status post pacemaker Patient is in a near euvolemic state. Continue maintenance Lasix 40 mg daily Continue small dose beta-luis eduardo Patient is not on anticoagulation. He is only on aspirin. CKD stage III, near baseline. Continue maintenance diuretics to keep him in a euvolemic state L1 and L3 compression fracture Unknown duration, probable subacute I suspect the patient has osteoporosis. Recommend DEXA scan in the outpatient setting and initiation of bisphosphonate treatment Check vitamin D level to rule out vitamin D deficiency Anemia, no evidence of acute blood loss. Patient will likely require to have anemia workup to be done in the outpatient setting to be handled by PCP in collaboration with other needed outpatient providers. This may include but not limited to EGD, colonoscopy, referral to see hematology and other needed age-appropriate cancer screening. History of lymphoma status postradiation treatment, history of CVA with residual dysarthria, weakness and functional decline Continue aspirin. PT OT eval and treatment. Chronic medical conditions not listed above, incidental findings seen on labs and imaging. Patient has multi system involvement complexity and follows up with cardiology, pulmonary, head golf coach in [place] and in [place]. These would need to be addressed. Could be addressed when time and condition are appropriate. Could be addressed in the outpatient setting by PCP collaboration with other needed outpatient providers.
--- NOTE | 2025-03-04 10:52 | PT.DAILY ---
Physical Therapy Daily Note PT Daily Note/Assess Start: 03/03/25 16:43 Freq: Status: Active Protocol: Document 03/04/25 09:35 ALLYN (Rec: 03/04/25 10:52 ALLYN [id number]) Physical Therapy Daily Note/Assessment Time In/Time Out Time In 09:35 Time Out 10:00 Subjective Subjective Patient reports back pain is feeling much better this morning. Agrees to PT RX. Therapeutic Activity Time Therapeutic Activity 25 Minutes (minutes) Therapeutic Activity 2 Units Therapeutic Activity Treatment Bed Mobility Ability Standby Assistance Chair Transfer Modified Independent Ability Therapeutic Activity Patient has hospital bed at home. Education on log Comments rolling techniques and then patient able to demonstrate correct techniques both in and out of bed without increase in pain. Gait 30' without AD supervision. Patient did request to ambulate without AD due to decreased back pain today, distance of ambulation was limited more due to breathing. Patient was on 4 LO2. Total Physical Therapy Time Total Therapy 25 Minutes Total Physical 2 Therapy Units Summary Daily Note Summary Patient demonstrates Ind. with log rolling and safe back techniques with transfers and gait today. Able to ambulate 30' without AD which is improvement from previous date. Overall pain is decreased today allowing improved mobility. Patient is more limited due to poor endurance from breathing. Patient is up in chair with alarm placed, call light in reach and all needs met.
[2025-03-04] MEDS: METHYLPREDNISOLONE SOD SUCC PF 40 MG/ML VIAL IVP ×2 (11:03→23:11)
[2025-03-04] MEDS: 0.9 % SODIUM CHLORIDE 250 ML 10 ML IV (13:26)
[2025-03-05] VITALS (21 sets, daily range): BP systolic 107–132; BP diastolic 63–74; PULSE 70–87; TEMP 36.3–36.8; O2SAT 90–94
[2025-03-05] MEDS: LEVOTHYROXINE SODIUM 112 MCG TABLET PO (05:57)
[2025-03-05] MEDS: CODEINE 10 MG/GUAIFENESIN 100 MG 5 ML ORAL SYRINGE 10 ML PO ×2 (08:04→18:10)
[2025-03-05] MEDS: ENOXAPARIN SODIUM 40 MG/0.4 ML SYRINGE SUBQ (08:36)
[2025-03-05] MEDS: DOXYCYCLINE MONOHYDRATE 100 MG CAPSULE PO ×2 (08:37→22:09)
[2025-03-05] MEDS: MONTELUKAST SODIUM 10 MG TABLET PO (08:37)
[2025-03-05] MEDS: DOCUSATE SODIUM 100 MG CAPSULE PO (08:37)
[2025-03-05] MEDS: FUROSEMIDE 40 MG TABLET PO (08:37)
[2025-03-05] MEDS: SENNOSIDES/DOCUSATE SODIUM 1 TAB TABLET PO (08:37)
[2025-03-05] MEDS: ASPIRIN 81 MG TAB.CHEW PO (08:37)
[2025-03-05] MEDS: METOPROLOL SUCCINATE 25 MG TAB.ER.24H PO (08:37)
--- NOTE | 2025-03-05 09:19 | PM.PN ---
Progress Note: Subjective Subjective Interval history: Patient is feeling better. Less cough and congestion. Less shortness of breath. No chest pain. No abdominal pain. Patient is able to ambulate to the bathroom without significant dyspnea sensation of shortness of breath Exam Narrative Exam Narrative: Patient is sitting in bed. Tachypneic. Respirate is about 24. Unable to complete sentences. Neck is supple. No JVD. Chest exam revealed improvement in the resolution of fine crackles, expiratory wheezing. Heart is regular. Pacemaker felt in the left upper quadrant of the chest. Abdomen soft, nontender. Lower extremities no edema. Functional impairment. Please refer to physical Occupational Therapy team note for details on his functional status and treatment plan Constitutional Vital Signs, click to edit/add: Last Vital Signs Temp 97.7 F 03/05/25 07:56 Pulse 79 03/05/25 08:00 Resp 22 H 03/05/25 07:56 BP 129/74 03/05/25 07:56 Pulse Ox 91 L 03/05/25 07:56 O2 Del Method Nasal Cannula 03/05/25 07:56 O2 Flow Rate 4 03/05/25 07:56 Progress Note: A&P Assessment and Plan (1) Bacterial pneumonia: (2) Pulmonary hypertension: (3) COPD with acute exacerbation: (4) CKD (chronic kidney disease): (5) Chronic hypoxic respiratory failure: (6) Scarring of lung: (7) Multifactorial functional impairment: (8) Lumbar compression fracture: Plan Acute shortness of breath, acute on chronic hypoxic respiratory failure. Patient is on 4 L at home Likely multifactorial secondary to developing pneumonia in the right upper lobe (haziness seen on CT chest ), probable right lower lobe infiltration. Underlying parenchymal lung disease. Probable COPD versus pulmonary fibrosis versus others. (Patient stated that his short story writer mentioned cystic fibrosis ?? ) Pulmonary hypertension Status post radiation and treatment of the lymph node in the chest for lymphoma many years ago. Continue intravenous ceftriaxone and doxycycline. Influenza, RSV and COVID are negative Corticosteroid Albuterol, Atrovent. The patient euvolemic state Patient is feeling better. Continue current treatment plan Patient is to follow-up with his short story writer postdischarge Diastolic heart failure, history of cardiac dysrhythmia status post pacemaker Patient is in a near euvolemic state. Continue maintenance Lasix 40 mg daily Continue small dose beta-luis eduardo Patient is not on anticoagulation. He is only on aspirin. CKD stage III, near baseline. Continue maintenance diuretics to keep him in a euvolemic state L1 and L3 compression fracture Unknown duration, probable subacute I suspect the patient has osteoporosis. Recommend DEXA scan in the outpatient setting and initiation of bisphosphonate treatment Check vitamin D level to rule out vitamin D deficiency Anemia, no evidence of acute blood loss. Patient will likely require to have anemia workup to be done in the outpatient setting to be handled by PCP in collaboration with other needed outpatient providers. This may include but not limited to EGD, colonoscopy, referral to see hematology and other needed age-appropriate cancer screening. History of lymphoma status postradiation treatment, history of CVA with residual dysarthria, weakness and functional decline Continue aspirin. PT OT eval and treatment. Chronic medical conditions not listed above, incidental findings seen on labs and imaging. Patient has multi system involvement complexity and follows up with cardiology, pulmonary, hydraulic lift operator in [place] and in [place]. These would need to be addressed. Could be addressed when time and condition are appropriate. Could be addressed in the outpatient setting by PCP collaboration with other needed outpatient providers.
[2025-03-05] MEDS: BUDESONIDE 0.5 MG/2 ML AMPULE NEB IH ×2 (10:24→21:46)
[2025-03-05] MEDS: ALBUTEROL SULFATE 2.5 MG/3 ML VIAL NEB IH ×2 (10:27→15:26)
[2025-03-05] MEDS: METHYLPREDNISOLONE SOD SUCC PF 40 MG/ML VIAL IVP ×2 (11:01→22:09)
[2025-03-05] MEDS: ACETAMINOPHEN 325 MG TABLET 650 MG PO (18:10)
[2025-03-05] MEDS: IPRATROPIUM/ALBUTEROL SULFATE 3 ML AMPUL.NEB IH (21:46)
[2025-03-06] VITALS (12 sets, daily range): BP systolic 132–155; BP diastolic 53–80; PULSE 67–88; TEMP 36.4–36.6; O2SAT 91–93
[2025-03-06] MEDS: LEVOTHYROXINE SODIUM 112 MCG TABLET PO (05:41)
[2025-03-06 05:49] LABS: Hematocrit 33.0 % (42.0-54.0); Hemoglobin 10.5 g/dL (14.0-18.0); Mean Corpuscular HGB Conc 31.8 g/dL (29.9-35.2); Mean Corpuscular Hemoglobin 33.9 pg (25.9-34.0); Mean Corpuscular Volume 106.5 fL (80.0-94.0); Platelet Count 148 10^3/uL (150-450); Red Blood Count 3.10 10^6/uL (4.70-6.10); White Blood Count 5.7 10^3/uL (4.0-11.0)
[2025-03-06 05:59] LABS: Anion Gap 11.3; Blood Urea Nitrogen 48.0 mg/dL (7.0-18.0); Calcium 8.8 mg/dL (8.5-10.1); Carbon Dioxide 29.3 mmol/L (21.0-32.0); Chloride 106 mmol/L (98-107); Estimated GFR (African America 51 (>=60 mL/min/1.73m^2); Estimated GFR (Non-African Ame 42 (>=60 mL/min/1.73m^2); Glucose 176 mg/dL (74-106); Potassium 4.6 mmol/L (3.5-5.1); Sodium 142 mmol/L (136-145)
--- OUTSIDE RECORDS SUMMARY | 2025-03-06 06:52 | XMS_ITS | Encounter Summary ---
Author Organization [facility] Address [address] [place] [id number] Care Team Providers Care Countersinker Balance Screw Hole Name Role Phone Nanette Sherwood MD Primary Care Provider [phone] Marshall Briceño MD Primary Care Provider [phone] Source Comments In the event this information is protected by the Federal Confidentiality of Alcohol and Drug AbusePatient Records regulations: The Federal rules restrict any use of the information to criminally investigate or prosecute any alcohol or drug abuse patient.[facility] Encounter Details Date Type Department Care Team [...] Description 05/22/2025 3:30 PM EDT Office Visit [facility] [address] [address] 6 month lab 05/26/2025 3:00 PM EDT Visit (SP) Office Hematology/Oncology [address] [place] [address] Ginger Bean APRN.TELECOMMUNICATIONS ADMINISTRATOR [address] [place] [address] 6 month follow up / BRM pt documented as of this encounter Visit Diagnoses Not on filedocumented in this encounter Care Teams Countersinker Balance Screw Hole Relationship Specialty Start Date End Date Nanette Sherwood MD [address] [place] [address] PCP - General 08/01/05 07/22/23 Marshall Briceño MD [address] [place] [address] PCP - General Family Medicine 07/23/23 documented as of this encounter
--- OUTSIDE RECORDS SUMMARY | 2025-03-06 06:52 | XMS_ITS | Clinical Summary ---
Author Organization [employer] tem Address [id number] [address] [place] [address] Care Team Providers Care Social Work Assistant Name Role Phone Nanette Sherwood MD Primary Care Provider [phone] Allergies No known active allergies Medications CALCIUM [...] on file Insurance [employer] MEDICARE Care Teams Social Work Assistant Relationship Specialty Start Date End Date Nanette Sherwood MD PCP - General Family Medicine 10/06/19
--- OUTSIDE RECORDS SUMMARY | 2025-03-06 06:52 | XMS_ITS | Clinical Summary ---
Author Organization [facility] Address [address] [place] [address] Care Team Providers Care Computer Programming Professor Name Role Phone Marshall Briceño MD Primary Care Provider [phone] Allergies No known active allergies Medications aspirin [...] Description 01/30/2025 10:35 AM EDT Ancillary Procedure [facility] [address] [place] [address] Adjustment and management of cardiac pacemaker 01/28/2025 Orders Only [facility] [address] [place] [address] Connor Roberts MD from Last 3 Months [...] Connor Roberts MD CV IMPLANTABLE CARDIAC DEVICE WA OCEDURES Final Result CPACS * Cardiac device check - Remote pacemaker (01/28/2025 12:00 AM EDT) Anatomical Region Laterality Modality Other 01/28/2025 Connor Roberts MD CV IMPLANTABLE CARDIAC DEVICE WA OCEDURES Final Result from Last [address] [place] [id number] [employer] MEDICARE Care Teams Computer Programming Professor Relationship Specialty Start Date End Date Marshall Briceño MD [address] [place] [id number] PCP - General Family Medicine 05/21/23
--- OUTSIDE RECORDS SUMMARY | 2025-03-06 06:52 | XMS_ITS | Encounter Summary ---
Author Organization [facility] Address [address] [address] Care Team Providers Care Metal Engineering Process Worker Name Role Phone Marshall Briceño MD Primary Care Provider Encounter Details Date Type Department Care Team (Late st Contact Info) Description 01/28/2025 Orders Only [facility] [address] [place] [address] Connor Roberts MD [address] [place] [address] Social History Tobacco Use Types [...] Connor Roberts MD CV IMPLANTABLE CARDIAC DEVICE DC OCEDURES Final Result documented in this encounter Visit Diagnoses Not on filedocumented in this encounter Care Teams Metal Engineering Process Worker Relationship Specialty Start Date End Date Marshall Briceño MD [address] [place] [id number] PCP - General Family Medicine 05/21/23 documented as of this encounter
--- OUTSIDE RECORDS SUMMARY | 2025-03-06 06:52 | XMS_ITS | Clinical Summary ---
Author Organization [facility] Address [address] [place] [address] Care Team Providers Care Micro Paleontologist Name Role Phone Marshall Briceño MD Primary Care Provider [phone] Allergies Active Allergy Reactions Criticality Noted Date [...] original vaccine, a ge 12+ yr, monovalent ([employer] - PURPLE TOP) 11/13/2020,10/22/2020 influenza (HD-IIV3) vaccine, [...] is lower risk 8 06/06/2024 Data from: https://www.neighborhoodatlas.medicine.[facility].edu/. Last address used for calculation [address] [place] [address] [address] 06/06/2024 Sex and Gender Information [...] Description 05/22/2025 3:30 PM EDT Office Visit [facility] [address] [place] [address] [place] [address] 6 month lab 05/26/2025 3:00 PM EDT Visit (SP) Office Hematology/Oncology [address] [place] [address] [place] [address] Ginger Bean, BODY TECHNICIAN.MEDICAL SCIENTIST [address] [place] [address] 6 month follow up / BRM pt [...] METABOLIC PANEL (11/15/2024 1:39 PM EDT) Pathologist [facility] Protein, Total 6.8 6.3 - 8.0 g/dL 11/15/2024 2:43 PM EDT [facility] Albumin 3.8(L) 3.9 - 4.9 g/dL 11/15/2024 2:43 PM EDT [facility] Calcium, Total 9.3 8.5 - 10.2 mg/dL 11/15/2024 2:43 PM EDT [facility] Bilirubin, Total 0.4 0.2 - 1.3 mg/dL 11/15/2024 2:43 PM EDT [facility] Alkaline Phosphatase 83 38 - 113 U/L 11/15/2024 2:43 PM EDT [facility] AST 14 14 - 40 U/L 11/15/2024 2:43 PM EDT [facility] ALT 9(L) 10 - 54 U/L 11/15/2024 2:43 PM EDT [facility] Glucose 110(H) 74 - 99 mg/dL 11/15/2024 2:43 PM EDT [facility] Comment: The [place] [employer] (ADA) provides guidance for cutoff [...] Standards of Medical Care in Diabetes 2016, [place] [employer]. Diabetes Care. 2016.39(Suppl 1). BUN 21 9 - 24 mg/dL 11/15/2024 2:43 PM EDT [facility] Creatinine 1.27(H) 0.73 - 1.22 mg/dL 11/15/2024 2:43 PM EDT [facility] Sodium 140 136 - 144 mmol/L 11/15/2024 2:43 PM EDT [facility] Potassium 4.0 3.7 - 5.1 mmol/L 11/15/2024 2:43 PM EDT [facility] Chloride 104 98 - 107 mmol/L 11/15/2024 2:43 PM EDT [facility] CO2 24 22 - 30 mmol/L 11/15/2024 2:43 PM EDT [facility] Anion Gap 12 8 - 15 mmol/L 11/15/2024 2:43 PM EDT [facility] Estimated Glomerular Filtration Rate 58(L) >=60 mL/min/1. 73m 11/15/2024 2:43 PM EDT [facility] Comment:Estimated Glomerular Filtration Rate (eGFR) [...] 11/15/2024 1:58 PM EDT us Arabella Gayle BODY TECHNICIAN.MEDICAL SCIENTIST LABORATORY Final Resul t [facility] [address] [place] [address] from Last 3 Months or Most Recently Relevant to Health Maintenance Insurance [facility] [employer] [employer] PPO Member Subscriber Plan / Payer (Ef fective 2023-Present) Name:Dorian Juarez Relation to Subscriber:Self Name:Dorian Juarez Payer ID:[id number] (NAIC) Type:PPO Address: [place] [id number] Care Teams Micro Paleontologist Relationship Specialty Start Date End Date Marshall Briceño MD [address] [place] [address] PCP - General Family Medicine 07/23/23
--- OUTSIDE RECORDS SUMMARY | 2025-03-06 06:52 | XMS_ITS ---
Author Organization [facility] Address [address] [place], [place] [address] Care Team Providers Care Recreation Leader Name Role Phone Marshall Briceño MD Primary Care Provider [phone] Active Problems Problem Noted Date Diagnosed Date B12 deficiency 07/13/2017 Diffuse large B cell lymphoma 02/21/2013 Current Treatment and Therapy Plans No current plan information found. Past Treatment and Therapy Plans
--- OUTSIDE RECORDS SUMMARY | 2025-03-06 06:52 | XMS_ITS | Encounter Summary ---
Author Organization [facility] Address [address] [place] [address] Care Team Providers Care Blade Boner Name Role Phone Nanette [place]wood MD Primary Care Provider [phone] Marshall Briceño MD Primary Care Provider [phone] Source Comments In the event this information is protected by the Federal Confidentiality of Alcohol and Drug AbusePatient Records regulations: The Federal rules restrict any use of the information to criminally investigate or prosecute any alcohol or drug abuse patient.[facility] Encounter Details Date Type Department [...] N ot on file 07/22/2020 Data from: https://www.neighborhoodatlas.[facility]/. Last address used for calculation Not on [...] Description 05/22/2025 3:30 PM EDT Office Visit [facility] [address] [place] [address] 6 month lab 05/26/2025 3:00 PM EDT Visit (SP) Office Hematology/Oncology [address] [place] [address] Ginger Bean APRN.CASTING PLUG ASSEMBLER [address] [place] [address] 6 month follow up / BRM pt documented as of this encounter Visit Diagnoses Not on filedocumented in this encounter Care Teams Blade Boner Relationship Specialty Start Date End Date Nanette [place] MD [address] [place] [address] PCP - General 08/01/05 07/22/23 Marshall Briceño MD [address] [place] [address] PCP - General Family Medicine 07/23/23 documented as of this encounter
--- OUTSIDE RECORDS SUMMARY | 2025-03-06 06:52 | XMS_ITS | Clinical Summary ---
Author Organization [facility] Address [address] [place] [address] Care Team Providers Care Sales Technician Name Role Phone Marshall Briceño MD Primary Care Provider [phone] Deven Alves MD Unavailable [phone] Tyler Draper MD Unavailable [phone] Allergies Active Allergy Reactions Criticality Noted Date Comments Spironolactone Other (See Comments) 09/18/2021 Leg cramps, Hyperkalemia Medications furosemide (LASIX) 20 mg tablet Take 40 mg by mouth once daily as needed. 1 Active potassium chloride (MICRO-K) 10 mEq CR capsule Take 10 mEq by mouth once daily as needed. Takes when takes lasix 1 Active levothyroxine 100 mcg tablet Take 100 mcg by mouth once daily before a meal. 1 Active cyanocobalamin (VITAMIN B-12) 1,000 mcg tablet Take 1,000 mcg by mouth once daily. Active aspirin (ECOTRIN LOW STRENGTH) 81 mg delayed release tablet Take 81 mg by mouth once daily before a meal. 0 Active calcium carbonate 1,250 mg (500 mg calcium) tablet Take 1,250 mg by mouth once daily. Active cholecalciferol (VITAMIN D3) 25 mcg (1,000 unit) tablet Take 1,000 units by mouth once daily. Active albuterol 90 mcg/actuation HFA inhaler Inhale 2 puffs by mouth as needed. Active calcium carb/vit D3/minerals (CALCIUM-VITAMIN D ORAL) 9 Active METOPROLOL SUCCINATE ORAL Take 25 mg by mouth in the morning. Active cyanocobalamin (vitamin B-12) 1,000 mcg tablet Take 1,000 mcg by mouth once daily. 9 Active ipratropium 42 mcg (0.06 %) nasal spray Place 2 sprays in each nostril two times daily. 15 mL 3 4 Active azelastine 137 mcg (0.1 %) nasal spray Place 1 spray in each nostril two times daily. 30 mL 6 4 Active montelukast 10 mg tablet Take 1 tablet (10 mg) by mouth once daily. 90 tablet 4 5 02/10/20 26 Active SPIRIVA WITH HANDIHALER 18 mcg capsule for inhaler Inhale the contents of 1 capsule (18 mcg) via inhaler once daily. 90 capsule 4 5 Active salmeteroL (SEREVENT DISKUS) 50 mcg/dose disk inhaler Inhale 1 puff by mouth two times daily. 3 each 4 5 Active tezepelumab-ekko (TEZSPIRE PEN) 210 mg/1.91 mL (110 mg/mL) injection pen Inject 210 mg into the skin every four weeks. 1.91 mL 16 5 02/10/20 26 Active sodium chloride (Hyper-Enrique) 3.5 % NEB solution Inhale 4 mL via nebulizer two times daily. 240 mL 5 Active albuterol 2.5 mg/3 mL (0.083 %) NEB solution Inhale 3 mL (2.5 mg) via nebulizer once daily. 270 mL 5 02/10/20 26 Active budesonide (PULMICORT RESPULES) 1 mg/2 mL NEB solution Inhale 2 mL (1 mg) via nebulizer two times daily. 360 mL 5 02/10/20 26 Active ensifentrine (OHTUVAYRE) 3 mg/2.5 mL Suspension for NebulizationIndic ations:Asthma-MATRIX REPAIRER D overlap syndrome (CMS/HCC),Dyspnea , unspecified type,COPD exacerbation (CMS/HCC) Inhale 3 mg via nebulizer two times daily. 150 mL 12 5 Active ensifentrine 3 mg/2.5 mL Suspension for NebulizationIndic ations:Asthma-MATRIX REPAIRER D overlap syndrome (CMS/HCC) Inhale 3 mg by mouth two times daily. 150 mL 12 5 Active Hospital, Clinic, or Other Facility Administered Medication Ordered Dose Route Frequency Start Date End Date Status albuterol (PROAIR HFA) inhaler 4 puffIndications:Asthma-COPD overlap syndrome (CMS/HCC) 4 puff Inhl PRN 10/08/2023 Active Active Problems Patient Care Coordination No te Formatting of this note migh t be different from the original. PCP Marshall Briceño M.D. ph. [phone]. 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 Pulmonary hypertension 07/02/[address] scan 07/02/2023 Edema of both upper arms 07/02/2023 Chronic sinusitis 07/02/2023 Bilateral leg edema 08/06/2022 Cough 07/17/2021 Recurrent pneumonia 07/17/2021 Dyspnea 07/17/2021 Family History Medical History Relation Name Comments Cystic fibrosis Brother Cancer Mother Relation Name Status Comments Brother Mother Social History Tobacco Use Types Packs/Day Years Used Date Smoking Tobacco: Never Smokeless Tobacco: Never Tobacco Cessation:Counseling Given: Not Answered Alcohol Use Standard Drinks/Week Comments Not Currently 1 (1 standard drink = 0.6 oz pur e alcohol) Depression (PHQ-9) Answer Date Recorded Last PHQ-9 Score 4 07/02/2023 Depression Symptoms Severity Score: 4 07/02/2023 Sex and Gender Information Value Date Recorded Sex Assigned at Not on file Legal Sex Male 10:10 AM EDT Gender Identity Not on file Sexual Orientation Not on file Last Filed Vital Signs Vital Sign Reading Time Taken Comments Blood Pressure 113/56 11/16/2024 9:27 AM EDT Pulse 87 11/16/2024 9:27 AM EDT Temperature 36.6 C (97.8 F) 11/16/2024 9:27 AM EDT Respiratory Rate 16 11/16/2024 9:27 AM EDT Oxygen Saturation 91% 11/16/2024 9:27 AM EDT Inhaled Oxygen Concentration - - Weight 95.3 kg (210 lb 1.6 oz) 11/16/2024 9:27 A M EDT Height 161 cm (5' 3.4 ) 11/16/2024 9:27 AM EDT Body Mass Index 36.75 11/16/2024 9:27 AM EDT Plan of Treatment Upcoming Encounters Date Type Department Care Team (Late st Contact Info) Description 03/09/2025 12:30 PM EDT Appointment [facility] Pulmonary Function Lab [facility] Floor [address] [place] [address] 03/09/2025 1:00 PM EDT Office Visit [facility] Pulmonary Clinic [facility] Floor [address] [place] [address] Mayra Berg MD [address] [place] [address] [address] [facility] Floor [address] [place] [address] Health Maintenance Due Date Last Done Comments Hepatitis C Screening 1945 Respiratory Syncytial Virus (RSV) or ages 60 years and older (1 - 1-dose 75+ series) 2022 COVID-19 Vaccine ( - 2023- season) 2024 05/12/2024, 07/02/2023, 06/25/2021, Additional history exists Influenza Vaccine (#1) 2025 4, 05/12/2024, 05/11/2023, Additional history exists DTaP,Tdap,and Td Vaccines (2 - Td or Tdap) 05/09/2030 05/09/2020 Pneumococcal Vaccines 50years + Completed 05/25/2018, 04/26/2018, 08/04/2017 Zoster Recombinant Vaccines Completed 03/2020, 07/22/2020, 05/09/2020 Respiratory Syncytial Virus (RSV) ages 0 thru 19 months Aged Out No longer el igible based on patient's age to complete this topic Additional Health Concerns Infection Onset Date Last Indicated CF or CRMS 02/21/2025 02/21/2025 Insurance [facility] MEDICARE PPO Care Teams Sales Technician Relationship Specialty Start Date End Date Marshall Briceño MD [address] [place] [address] PCP - General Family Medicine 09/25/23 Deven Alves MD [address] [place] [address] [address] [place] [address] Catalyst Operator Cardiology 10/21/23 Tyler Draper MD [address] [place] [address] [address] [place] [phone] Internal Medicine 02/08/24
--- OUTSIDE RECORDS SUMMARY | 2025-03-06 06:53 | XMS_ITS | Clinical Summary ---
Author Organization [facility] Address [address] [place] [address] Phone Care Team Providers Care Beater Out Name Role Phone Unavailable Primary Care Provider [...]
--- OUTSIDE RECORDS SUMMARY | 2025-03-06 06:53 | XMS_ITS | Patient Health Record ---
Author Organization [facility] [place] Address [address] [place] [address] Care Team Providers Care Cops Name Role Phone Marshall Briceño MD Primary Care Provider Chester Bañuelos [phone] Allergies Allergen (clinical drug ingredient) Drug/Non Drug [...] Comme nts Arexvy Unknown 03/21/2024 Administered Comirnatalexandr [employer] Syringe Pre -Filled 30 mcg/0.3 mL Unknown 05/12/2024 Administered Flu, Fluad (55039) 65 yrs + High Dose Seasonal (9078-6579) Unknown 05/12/2024 Administered Pneumococcal (Pneumovax 23) Unknown [...] Problem Status W/U Status Risk Notes Problem 19150277 Centrilobular emphysema (J43.2) Active confirmed Problem Uncomplicated severe persistent asthma (846957296) Severe persistent asthma, uncomplicated (J45.50) Active confirmed Problem Chronic respiratory failure (17335194) Chronic respiratory failure with hypoxia (J96.11) Active confirmed Problem 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 Problem 158223495 half-way (current) use of inhaled steroids (Z79.51) Active confirmed Problem Hypothyroidism (34403875) Hypothyroidism (E03.9) Active confirmed Problem Obesity (679065484) Obesity (E66.9) Active confirmed Problem Sleep apnea (12967764) Sleep apnea (G47.30) Active confirmed Problem Obstructive sleep apnea syndrome (13481605) JUANA (obstructive sleep apnea) (G47.33) Active confirmed Problem Ex-tobacco user (finding) (694387831) History of tobacco abuse (Z87.891) Active confirmed Problem 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39307738) 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) Active confirmed Problem Prolonged QT interval (950284768) Prolonged QT interval (R94.31) Active confirmed Problem Secondary pulmonary hypertension (59663664) Other secondary pulmonary hypertension (I27.29) Active confirmed Problem Pulmonary hypertension (59883867) Pulmonary hypertension (I27.20) Active confirmed Vital Signs Heart Rate 81 /min 02/01/2025 RA Activity/Res ting Temperature 97.0 degrees Fahrenheit 02/01/2025 RA A ctivity/Resting Respiratory Rate 20 /min 02/01/2025 RA Activity /Resting Oximetry 92 % 02/01/2025 RA Activity/Res ting Blood pressure diastolic 68 mm Hg 02/01/2025 RA Activity/Resting Height 63 in 02/01/2025 RA Activity/Res ting Blood pressure systolic 138 mm Hg 02/01/2025 RA A ctivity/Resting Weight 217.2 lbs 02/01/2025 RA Activity/Res ting BMI 38.47 kg/m2 02/01/2025 RA Activity/Res ting Encounters Encounter Location Date Provider Diagnosis Pulmonary Medicine [place] [address] [place] [address] 10/13/2024 [facility] Pulmonary Medicine [place] [address] [place] [address] 02/01/2025 [facility] Severe persistent asthma, uncomplicated J45.50 ; Centrilobular emphysema J43.2 ; Chronic respiratory failure with hypoxia J96.11 ; JUANA (obstructive sleep apnea) G47.33 ; Cystic fibrosis carrier Z14.1 ; Prolonged QT interval R94.31 ; Radiation fibrosis of lung J70.1 ; Other secondary pulmonary hypertension I27.29 ; History of tobacco abuse Z87.891 ; 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 and Obesity E66.9 [facility] [place] [address] [place] [address] 11/02/2024 [facility] Severe persistent asthma, uncomplicated J45.50 ; Centrilobular emphysema J43.2 ; Chronic respiratory failure with hypoxia J96.11 ; JUANA (obstructive sleep apnea) G47.33 ; Cystic fibrosis carrier Z14.1 ; Prolonged QT interval R94.31 ; Radiation fibrosis of lung J70.1 ; Other secondary pulmonary hypertension I27.29 ; History of tobacco abuse Z87.891 ; half-way (current) use of inhaled steroids Z79.51 and [...] respiratory failure with hypoxia (ICD-10 - J96.11) Ytst-vd-tidv encounter performed with the patient to document [...] JUANA (obstructive sleep apnea) (ICD-10 - G47.33) Odto-wx-dgaf encounter performed with the patient to document continued need for PAP therapy. -Current DME: BEN -PS12/14/2018; Initial AHI: 59 (3% criteria), 45 (4% criteria) -Last PAP titration: 12/28/2018 @ 61ygC2H -CPAP set-up: 01/11/2019 -No compliance available -Mask/harness [...] bedtime and with any naps. -Note: This dxyc-wa-reuz visit comes with my authorization that the patient's DME may request to renew, reorder, and/or replace tubing, supplies, mask, and/or PAP device (if applicable). 02/01/2025 Chronic respiratory failure with hypoxia (ICD-10 - J96.11) Lroj-aa-fhos encounter performed with the patient to document [...] JUANA (obstructive sleep apnea) (ICD-10 - G47.33) Ighm-pk-lexj encounter performed with the patient to document continued need for PAP therapy. -Current DME: BEN -PS12/14/2018; Initial AHI: 59 (3% criteria), 45 (4% criteria) -Last PAP titration: 12/28/2018 @ 38mrD0T -Compliance reviewed 01/02/2025 - 01/31/2025 -Overall use: 30/30 (100%) days ->4 hour use: 29/30 (97%) days -Settings: AirSense 11 AutoSet CPAP [id number] -Residual AHI: 2.3 -Air leak (median): 15.7L/min [...] bedtime and with any naps. -Note: This jwgx-bu-imwq visit comes with my authorization that the patient's DME may request to renew, reorder, and/or replace tubing, supplies, mask, and/or PAP device (if applicable). 11/02/2024 Cystic fibrosis carrier (ICD-10 - Z14.1) Evaluted at [facility] under Dr. Mayra Berg. Continue pulmonary [...] age, time from cessation, # pack-years). 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 02/01/2025 History of tobacco abuse (ICD-10 - Z87.891) 1ppd x 15 years, quit ~1987 This patient does not meet current LDCT criteria (e.g. age, time from cessation, # pack-years). 02/01/2025 half-way (current) use of inhaled steroids (ICD-10 - [...] Insured Coverage Start Date Coverage End Date [facility] [employer] [address] [address] [place] [address] [id number] Berylstefano Dorian Self - patient is the [...] tobacco abuse Z87.891 Surgical History Surgery Date(Month/Year) melanoma excision lymph node resection Cardiac Catheterization cardiac pacemeker Hospitalization History Reason Date(Month/Year) COPD Exacerbation-TB 10/11/2024
--- OUTSIDE RECORDS SUMMARY | 2025-03-06 06:53 | XMS_ITS | CCD ---
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 Primary Care Physician Pito Patterson MD Primary Care Provider [phone] Unallocated Mohit VENTURA Provider Primary Care Provi preet Crys Liu Unavailable Connor Crawley DO Unavailable [phone] Pito Patterson MD Primary Care Provider DO Connor Crawley Attending Provider MD Pito Patterson Primary Care Provider [phone] Unallocated Mohit VENTURA Provider Primary Care Provi [...] ] Drug Allergy 2 Other: See Comments [facility] (2 sources) Latex Propensity to adverse reactions [...] 1 VIAL VIA NEBULIZER EVERY 4 HOURS, [facility], 168, cm, 08/25/24 11:21:00 EST, Height/Length Dosing, [...] 1 VIAL VIA NEBULIZER EVERY 4 HOURS, [facility] [address], 161, cm, 02/15/24 10:32:00 EDT, Height/Length Dosing, 102, kg, 02/15/24 10:32:00 EDT, Weight Dosing Start Date: 02/22/24 Status: Ordered Start: 10-19-2023 take 1 dose by inhal ation every four hours albuterol 0.083% Inh Kasie 3 mL See Instructions, 300 mL, Refill(s) 3, INHALE 1 VIAL VIA NEBULIZER EVERY 4 HOURS, [id number], 168, cm, 10/19/23 8:08:00 EST, Height/Length [...] 1 VIAL VIA NEBULIZER EVERY 6 HOURS, [facility], 162, cm, 10/28/22 15:18:00 EDT, Height/Length Dosing, [...] DAY, # 360 mL, Refills(s) 3, Pharmacy: [facility] STORE [facility]001, 168, cm, 04/22/24 10:00:00 EDT, Height/Length Dosing, [id number] 168, cm, 10/19/23 8:08:00 EST, [...] Start: 03-09-2023 take 1 capsule by [facility] once daily at bedtime gabapentin 300 mg Cap 300 mg = 1 cap(s), Oral, Once a day (at bedtime), # 30 cap(s), Refills(s) 0, Pharmacy: [facility]/pharmacy #[id number], 168, cm, 03/09/23 11:04:00 EDT, Height/Length Dosing, 103, kg, 03/09/23 11:04:00 EDT, Weight Dosing Start Date: 03/09/23 Status: Ordered Start: 01-22-2023 take 1 capsule by [facility] once daily at bedtime gabapentin 300 mg [...] nasal route twice daily ipratropium Nasal 0.06% Umapine 2 spray(s), Nasal, BID for 90 day(s), 45 mL, Refill(s) 3, PLACE 2 SPRAYS IN EACH NOSTRIL TWO TIMES DAILY., [facility]/pharmacy #[id number], 168, cm, 03/09/23 11:04:00 EDT, Height/Length Dosing, 103, kg, 03/09/23 11:04:00 EDT, Weight Dosing Start Date: 03/13/23 Stop Date: 03/07/24 Status: Ordered Start: 02-20-2023 take 1 dose nasal ro sen[place]-c[place] twice daily, then take 2 spray(s) nasal route twice daily ipratropium Nasal 0.06% Umapine 2 spray(s), Nasal, BID, 1 EA, Refill(s) 1, PLACE 2 SPRAYS IN EACH NOSTRIL TWO TIMES DAILY., [facility]/pharmacy #[id number], 162, cm, 01/22/23 13:19:00 EDT, Height/Length Dosing, 98.3, kg, 01/22/23 13:19:00 EDT, Weight Dosing Start Date: 02/20/23 Status: Ordered Start: 01-22-2023 take 1 dose nasal ro [place]-c[place] twice daily, then take 2 spray(s) nasal route twice daily ipratropium Nasal 0.06% Umapine 2 spray(s), Nasal, BID, 1 EA, Refill(s) 1, PLACE 2 SPRAYS IN EACH NOSTRIL TWO TIMES DAILY., [id number], cm, 01/22/23 13:19:00 EDT, Height/Length Dosing, 98.3, kg, 01/22/23 13:19:00 EDT, Weight Dosing Start Date: 01/22/23 Status: Ordered levothyroxine sodium 0.1 mg oral tablet (20 sources) l-Thyroxine Start: 01-31-2025 take 1 tablet by mouth once daily levothyroxine 100 mcg (0.1 mg) Tab See Instructions, TAKE 1 TABLET BY MOUTH EVERY DAY, # 90 tab(s), Refills(s) 0, Pharmacy: [id number], 168, cm, 11/24/24 13:08:00 EDT, Height/Length Dosing, 100.3, kg, 11/24/24 13:08:00 EDT, Weight Dosing Start Date: 01/31/25 Status: Ordered Quantity: 90.0 Unit: tab(s) Repeat number: 1 Start: 04-22-2024 take 1 tablet by noe th once daily levothyroxine 100 mcg (0.1 mg) Tab See Instructions, TAKE 1 TABLET BY MOUTH EVERY DAY, # 90 tab(s), Refills(s) 0, Pharmacy: [id number], 161, cm, 02/15/24 10:32:00 EDT, Height/Length Dosing, 102, kg, 02/15/24 10:32:00 EDT, Weight Dosing Start Date: 04/22/24 Status: Ordered Start: 10-19-2023 take 1 tablet by noe th once daily levothyroxine 100 mcg (0.1 mg) Tab 100 mcg = 1 tab(s), Oral, Daily, # 90 tab(s), Refills(s) 0, Pharmacy: [facility]/pharmacy #[id number], 168, cm, 10/19/23 8:08:00 EST, [...] Refill(s) 0, Oxygen - patient states his checker just increased this to 4LPM Start Date: 02/15/24 Status: Ordered Repeat number: 1 Start: 02-15-2024 Oxygen - for H ome 4 L/min, Daily, Refill(s) 0, Oxygen - patient states his checker just increased this to 4LPM Start Date: 02/15/24 Status: Ordered polyethylene glycol 3350 62136 mg powder for oral solution (15 sources) [...] 3 EA, Refill(s) 3, [facility]), 168, cm, 03/09/23 11:04:00 EDT, [...] capsule by in halation once daily Tiotropium [place] Active 1 CAP INHALATION Daily June 01, [...] Ordered Start: 01-22-2023 take 1 tablet by [facility] once daily potassium chloride 10 mEq ER Tab 10 mEq = 1 tab(s), Oral, Daily, Refills(s) 0 Start Date: 01/22/23 Status: Ordered Start: 06-26-2021 take 1 capsule by [facility] once daily potassium chloride 10 mEq Cap-ER [...] 05-31-2024 02-24-2019 Chronic Other aftercare (1 source) 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 pt notified. Send rx to [facility] From: Rose Marie Sauceda ([facility] - Clinical) To: Marlys Carcamo; Sent: 02/23/2025 14:49:36 EDT Show up: 02/23/2025 14:49:00 EDT Subject: RE: Ambulatory Reminder Normal [facility] .Interpretation:on Interpretation: Comment Invalid Interpretation Code [facility] Comment on above: Result Comment: Not infected with HCV unless early or acute infection is suspected (which may be delayed in an immunocompromised individual), or other evidence exists to indicate HCV infection. Performed at: [facility] [id number] PhD Sahra Robledo Performed By: #### 2 [id number] #### [facility] [address] [place] [address] HCV Antibody RFX to Quant PC Mac 02-19-2025 HCV Ab Non-Reactive Invalid Interpretation Code Non Reactive [facility] Comment on above: Result Comment: Perf ormed at: [facility] [id number] PhD Sahra Robledo Performed By: #### 2 [id number] #### [facility] [address] [place] [address] CHEMISTRYOrdered By: SYSTEM SYSTEM on 02-16-2025 Albumin [...] (Bld) [Mass fraction] 6.0 % High <=5.9% [facility] ChemAutoSS CMPon 02-16-2025 Albumin [Mass/Vol] 3.8 g/dL Normal 3.3-5.0 [facility] Comment on above: Performed By: #### 2 [id number] #### [facility] [address] [place] [address] Albumin/Globulin [Mass ratio] 1.5 {ratio} Normal 1.1-2.2 [facility] Comment on above: Performed By: #### 2 [id number] #### [facility] [address] [place] [address] Alk Phos 81 Int._Unit/L Normal 21-98 [facility] Comment on above: Performed By: #### 2 [id number] #### [facility] [address] [place] [address] ALT 8 Int._Unit/L Normal 6-46 [facility] Comment on above: Performed By: #### 2 [id number] #### [facility] [address] [place] [address] Anion gap [Moles/Vol] 11 mmol/L Normal 6-16 [facility] Comment on above: Performed By: #### 2 [id number] #### [facility] [address] [place] [address] AST 11 Int._Unit/L Normal 5-43 [facility] Comment on above: Performed By: #### 2 [id number] #### [facility] [address] [place] [address] Bili Total 0.5 mg/dL Normal 0.0-1.1 [facility] Comment on above: Performed By: #### 2 [id number] #### [facility] [address] [place] [address] BUN/Creat Ratio 17 No Units Normal 10-20 [facility] Comment on above: Performed By: #### 2 [id number] #### [facility] [address] [place] [address] Calcium [Mass/Vol] 8.8 mg/dL Low 8.9-11.1 [facility] Comment on above: Performed By: #### 2 [id number] #### [facility] [address] [place] [address] Chloride [Moles/Vol] 104 mmol/L Normal 101-111 [facility] Comment on above: Performed By: #### 2 [id number] #### [facility] [address] [place] [address] CO2 [Moles/Vol] 26 mmol/L Normal 21-31 [facility] Comment on above: Performed By: #### 2 905338 #### [facility] [address] [place] [address] Creatinine [Mass/Vol] 1.2 mg/dL Normal 0.5-1.3 [facility] Comment on above: Performed By: #### 2 [id number] #### [facility] [address] [place] [address] Globulin (S) [Mass/Vol] 2.6 g/dL Normal 1.4-4.0 [facility] Comment on above: Performed By: #### 2 [id number] #### [facility] [address] [place] [address] Glucose [Mass/Vol] 104 mg/dL Normal 55-199 [facility] Comment on above: Performed By: #### 2 [id number] #### [facility] [address] [place] [address] Potassium [Moles/Vol] 4.2 mmol/L Normal 3.5-5.3 [facility] Comment on above: Performed By: #### 2 [id number] #### [facility] [address] [place] [address] Protein [Mass/Vol] 6.4 g/dL Normal 6.0-7.8 [facility] Comment on above: Performed By: #### 2 815249 #### [facility] [address] [place] [address] Sodium [Moles/Vol] 137 mmol/L Normal 135-145 [facility] Comment on above: Performed By: #### 2 936346 #### [facility] [address] [place] [address] Urea nitrogen [Mass/Vol] 20 mg/dL Normal 5-21 [facility] Comment on above: Performed By: #### 2 [id number] #### [facility] [address] [place] [address] [id number] 02-16-2025 HbA1c (Bld) [Mass fraction] 6.0 % High <=5.9 [facility] Comment on above: Performed By: #### 7 [id number] #### [facility] [address] [place] [address] Lipid Panelon 02-16-2025 Cholesterol [Mass/Vol] 166 mg/dL Normal 120-200 [facility] Comment on above: Performed By: #### 2 [id number] #### [facility] [address] [place] [address] Cholesterol in HDL [Mass/Vol] 35 mg/dL Invalid Interpretation Code [facility] Comment on above: Result Comment: '>= 60 LOW RISK' '<= 40 HIGH RISK' Performed By: #### 2 [id number] #### [facility] [address] [place] [address] Cholesterol in LDL [Mass/Vol] 113 mg/dL Normal <=129 [facility] Comment on above: Performed By: #### 2 [id number] #### [facility] [address] [place] [address] Cholesterol in VLDL [Mass/Vol] 24 mg/dL Normal 7-40 [facility] Comment on above: Performed By: #### 2 [id number] #### [facility] [address] [place] [address] Triglyceride [Mass/Vol] 119 mg/dL Normal <=149 [facility] Comment on above: Performed By: #### 2 [id number] #### [facility] [address] [place] [address] TSHon 02-16-2025 TSH Qn 9.04 m[IU]/L High 0.34-5.60 [facility] Comment on above: Performed By: #### 2 [id number] #### [facility] [address] [place] [address] eGFRon 02-16-2025 eGFR 62 mL/min/1.73 m2 Normal >=59 [facility] Comment on above: Performed By: #### 1 [id number] #### [facility] [address] [place] [address] Ambulatory Visit Summaryon 0 02-15-2025 Ambulatory Visit [...] (potassium chloride 10 mEq Cap-ER) sodium chloride (Hyper-Falco 3.5% inhalation solution) tezepelumab (Tezspire Pre-filled Pen [...] Appointments 2024 11:00 AM EDT With: Where: [address] [address]- Thursday 9:45 AM EDT With: MIKE VENTURA, nOi Sewell Where: [facility] [address] [address]- 2025 9:30 AM EDT With: Where: [address] [address]- You Need to Complete the Following Comprehensive [...] Every day Oxygen - patient states his checker just increased this to 4LPM Unchanged potassium chloride (potassium chloride 10 (more content not included)... Normal [facility] Ambulatory Visit Summary Ambulatory Visit Summary [...] Appointments 2024 11:00 AM EDT With: Where: [address] [address]- Thursday 9:45 AM EDT With: MIKE VENTURA, Oni Sewell Where: [facility] [address] [place], [place] [id number]- 2025 9:30 AM EDT With: Where: [address] [address]- You Need to Complete the [...] Every day Oxygen - patient states his checker just increased this to 4LPM Unchanged potassium chloride (potassium chloride 10 mEq Cap-ER) 1 Capsules By Mouth Every day Unchanged sodium chloride (Hyper-Flaco 3.5% inhalation solution) See instructions per neulizer BID, skip one dose with increased swelling in feet- per patient Unchan (more content not included)... Normal [facility] Family Medicine Office/Clini c Noteon 02-15-2025 Family [...] of clutter to prevent tripping and/or falling. [place] Advance Directives reviewed, at home. Patient encouraged [...] patient requests, he will have completed at [facility] prior to next PCP visit. Colonoscopy screenings [...] and pulmono (more content not included)... Normal [facility] Comment on above: Result Comment: Elec [...] on Spiriva. sees Dr. Ferro and a checker in [place] as well. on 4 Liter O2. annual labs ordered. he has not had any water today so he will return for nurse visit. RTC 3 months Ordered: E&M of Est. Patient Low 20-29 Min 64242 2. Back pain (M54.9: Dorsalgia, unspecified) c/o worsening back pain. spine surgeon is not willing to do surgery due to lung condition. will send refill on T3 Ordered: E&M of Est. Patient Low 20-29 Min 87682 3. Former smoker (Z87.891: Personal history of nicotine dependence) continue not smoking Ordered: E&M of Est. Patient Low 20-29 Min 43109 4. BMI 34.0-34.9,adult, (Z68.34: Body mass index [BMI] 34.0-34.9, adult)Body mass index [BMI] 34.0-34.9, adult BMI education Ordered: E&M of Est. Patient Low 20-29 Min 58244 5. Class 1 obesity due to excess calories with body mass index (BMI) of 34.0 to 34.9 in adult (E66.811: Obesity, class 1) see above Ordered: E&M of Est. Patient Low 20-29 Min 50500 Orders: 1125F Pain severity quantified; pain present [...] Handicap Placard, (more content not included)... Normal [facility] Comment on above: Result Comment: Elec tronically Signed By: Marlys Carcamo\.br\Date and Time Signed: 02/15/25 11:36 EDT No Panel Informationon 02-02 [facility] Ambulatory Visit Summaryon 0 11-24-2024 Ambulatory Visit [...] Appointments Thursday 8:00 AM EDT With: Where: [address] [address]- Thursday 9:00 AM EDT With: Pito Patterson MD Where: [address] [id number]- Thursday 9:45 AM EDT With: Oni MCKEON MD Where: [facility] [address] [place] [address]- Medications What How Much When Why Instructions [...] Every day Oxygen - patient states his checker just increased this to 4LPM Contact prescribing physician if questions or concerns Unchanged potassium chloride (potassium chloride 10 mEq Cap-ER) 1 Capsules By Mouth Every day Contact prescribing physician if questions or concerns Unchanged sodium chloride (Hyper-Flaco 3.5% inhalation solution) See instructions per nirav BID, skip one dose wi (more content not included)... Normal [facility] Family Medicine Office/Clini c Noteon 11-24-2024 [...] patient is also maintaining follow-ups with a checker for pulmonary hypertension and noted no new [...] function evaluation conducted. - Scheduled follow-up with checker for pulmonary hypertension. - Upcoming re-evaluation for [...] pending. Pulmonary hypertension remains stable per routine checker follow-ups. B-cell lymphoma continues to be ma (more content not included)... Normal [facility] Comment on above: Result Comment: Elec tronically Signed By: Navarro VENTURA, Pito Davidson\.br\Date and Time Signed: 11/24/24 13:39 EDT No Panel Informationon 11-22 [facility] PROSTATE-SPECIFIC ANTIGEN DI AGNOSTICon 11-22-2024 Prostate specific Ag [Mass/Vol] 0.24 ng/mL NINF - 2.60 ng/mL [facility] Comment on above: Total PSA test metho dology used is the Electrochemiluminescence Immunoassay by [employer]. Total PSA values by differing methodologies cannot be interchanged. Prostate specific Ag [Mass/V ol]on 11-22-2024 Interpretation and review of laboratory results Normal [facility] T4/FTI/T4Uon 11-22-2024 FTI 7 ug/dL 5.3 - 10.8 ug/dL [facility] Interpretation and review of laboratory results Abnormal [facility] T4 [Mass/Vol] 6.1 ug/dL 5.5 - 10.2 ug/dL [facility] T4 uptake [Mass/Vol] 0.87 Low 0.91 - 1.[address] [facility] THYROID STIMULATING HORMONEo n 11-22-2024 TSH Qn 2.01 m[IU]/L [facility] TSH Qnon 11-22-2024 Interpretation and review of laboratory results Normal [facility] CNOVSPon 11-21-2024 CNOVS Visit (SP) Office (H EMASA) -- CHIKI JUAREZ ([id number]) 1945 M Date Time Provider Department 11/21/24 [...] influenza A infection and was hospitalized at [facility]. Apparently his symptoms were severe enough [...] Resp 24 (more content not included)... Normal [facility] PSA SerPl-mCncon 11-21-2024 Prostate specific Ag [Mass/Vol] 0.24 ng/mL Normal <2.60 [facility] Comment on above: Order Comment: Speci men Type: BLOOD SPECIMENOrdering Facility: [facility] Address: [address] [place] [address] Result Comment: Tota l PSA test methodology used is the Electrochemiluminescence Immunoassay by [employer]. Total PSA values by differing methodologies cannot be interchanged. Performed By: #### 2 [id number] ####[facility] [id number] [place] [address] [place] T4/FTI/T4Uon 11-21-2024 FTI 7.0 ug/dL Normal 5.3-10.8 [facility] Comment on above: Order Comment: Speci men Type: BLOOD SPECIMEN Ordering Facility: [facility] Address: [address] [place] [address] Performed By: #### I FESC #### [facility] CLIA [id number] [address] [place] [address] [place] T4 [Mass/Vol] 6.1 ug/dL Normal 5.5-10.2 [facility] Comment on above: Order Comment: Speci men Type: BLOOD SPECIMEN Ordering Facility: [facility] Address: [address] [place] [address] Performed By: #### I FESC #### [facility] CLIA [id number] [address] [place] [address] [place] T4 uptake [Mass/Vol] 0.87 Low 0.91-1.19 [facility] Comment on above: Order Comment: Speci men Type: BLOOD SPECIMEN Ordering Facility: [facility] Address: [address] [place] [address] Performed By: #### I FESC #### [facility] CLIA [id number] [address] [place] [address] [place] TSH SerPl-aCncon 11-21-2024 TSH Qn 2.010 m[IU]/L Normal 0.270-4.200 [facility] Comment on above: Order Comment: Speci men Type: BLOOD SPECIMEN Ordering Facility: [facility] Address: [address] [place] [address] Performed By: #### I FESC #### [facility] CLIA [id number] [address] [place] [address] [place] CBC W Auto Differential pane l (Bld)on 11-16-2024 Anisocytosis Ql (Bld) Present [facility] Basophils (Bld) [#/Vol] 0.05 10*3/uL NINF [facility] Basophils/100 WBC (Bld) 0.9 % [facility] Differential cell count method Nom (Bld) Manual [facility] Eosinophils (Bld) [#/Vol] 0.05 10*3/uL [facility] Eosinophils/100 WBC (Bld) 0.9 % [facility] Erythrocyte distribution width (RBC) [Ratio] 16.2 % High 11.5 - 15.0 % [facility] Hematocrit (Bld) [Volume fraction] 35.7 % Low 39.0 - 51.0 % [facility] Hemoglobin (Bld) [Mass/Vol] 11.5 g/dL Low 13.0 - 17.0 g/dL [facility] Interpretation and review of laboratory results Abnormal [facility] Lymphocytes (Bld) [#/Vol] 1.14 10*3/uL [facility] Lymphocytes/100 WBC (Bld) 20.5 % [facility] MCH (RBC) [Entitic mass] 34.4 pg High 26.0 - 34.0 pg [facility] MCHC (RBC) [Mass/Vol] 32.2 g/dL 30.5 - 36.0 g/dL [facility] MCV (RBC) [Entitic vol] 106.9 fL High 80.0 - 100.0 fL [facility] [place] % 2.6 % [facility] Monocytes (Bld) [#/Vol] 1.85 10*3/uL High NINF [facility] Monocytes/100 WBC (Bld) 33.3 % [facility] Myelo % 6.8 % [facility] Neutrophils (Bld) [#/Vol] 1.94 10*3/uL [facility] Neutrophils/100 WBC (Bld) 35 % [facility] Nucleated RBC (Bld) [#/Vol] NINF [facility] Nucleated RBC/100 WBC (Bld) [Ratio] 0 % /100 WBC [facility] Ovalocytes LM Ql (Bld) Few [facility] Platelet mean volume (Bld) [Entitic vol] 10.9 fL 9.0 - 12.7 fL [facility] Platelets (Bld) [#/Vol] 186 10*3/uL [facility] Platelets Estimate (Bld) [#/Vol] Adequate [facility] Polychromasia LM Ql (Bld) Slight [facility] RBC (Bld) [#/Vol] 3.34 10*6/uL Low 4.20 - 6.0 0 m/uL [facility] Red Cell Morph Reviewed: see result s of individual morphologies [facility] WBC (Bld) [#/Vol] 5.55 10*3/uL [facility] WBC Left Shift Ql (Bld) Present [facility] This is an appended report. These results have been appended to a previously verified report. [facility] PROTEIN, TOTALon 11-16-2024 Protein [Mass/Vol] 6.8 g/dL 6.3 - 8.0 g/dL [facility] Protein [Mass/Vol]on Interpretation and review of laboratory results Normal [facility] CBC W Auto Differential pane l (Bld)on 11-15-2024 Anisocytosis Ql (Bld) Present Normal [facility] Comment on above: Order Comment: Speci men Type: BLOOD SPECIMEN Ordering Facility: [facility] Address: [address] [place] [address] [place] [id number] Performed By: #### I FESC #### [facility] CLIA [id number] [address] [place] [address] [place] Basophils (Bld) [#/Vol] 0.05 10*3/uL Normal <0.11 [facility] Comment on above: Order Comment: Speci men Type: BLOOD SPECIMEN Ordering Facility: [facility] Address: [address] [place] [address] Performed By: #### I FESC #### [facility] CLIA [id number] [address] [place] [address] [place] Basophils/100 WBC (Bld) 0.9 % Normal [facility] Comment on above: Order Comment: Speci men Type: BLOOD SPECIMEN Ordering Facility: [facility] Address: [address] [place] [address] Performed By: #### I FESC #### [facility] CLIA [id number] [address] [place] [address] [place] Differential cell count method Nom (Bld) Manual Normal [facility] Comment on above: Order Comment: Speci men Type: BLOOD SPECIMEN Ordering Facility: [facility] Address: [address] [place] [address] Performed By: #### I FESC #### [facility] CLIA [id number] [address] [place] [address] [place] Eosinophils (Bld) [#/Vol] 0.05 10*3/uL Normal <0.46 [facility] Comment on above: Order Comment: Speci men Type: BLOOD SPECIMEN Ordering Facility: [facility] Address: [address] [place] [address] Performed By: #### I FESC #### [facility] CLIA [id number] [address] [place] [address] [place] Eosinophils/100 WBC (Bld) 0.9 % Normal [facility] Comment on above: Order Comment: Speci men Type: BLOOD SPECIMEN Ordering Facility: [facility] Address: [address] [place] [address] Performed By: #### I FESC #### [facility] CLIA [id number] [address] [place] [address] [place] Erythrocyte distribution width (RBC) [Ratio] 16.2 % High 11.5-15.0 [facility] Comment on above: Order Comment: Speci men Type: BLOOD SPECIMEN Ordering Facility: [facility] Address: [address] [place] [address] Performed By: #### I FESC #### [facility] CLIA [id number] [address] [place] [address] [place] Hematocrit (Bld) [Volume fraction] 35.7 % Low 39.0-51.0 [facility] Comment on above: Order Comment: Speci men Type: BLOOD SPECIMEN Ordering Facility: [facility] Address: [address] [place] [address] Performed By: #### I FESC #### [facility] CLIA [id number] [address] [place] [address] [place] Hemoglobin (Bld) [Mass/Vol] 11.5 g/dL Low 13.0-17.0 [facility] Comment on above: Order Comment: Speci men Type: BLOOD SPECIMEN Ordering Facility: [facility] Address: [address] [place] [address] Performed By: #### I FESC #### [facility] CLIA [id number] [address] [place] [address] [place] Lymphocytes (Bld) [#/Vol] 1.14 10*3/uL Normal 1.00-4.00 [facility] Comment on above: Order Comment: Speci men Type: BLOOD SPECIMEN Ordering Facility: [facility] Address: [address] [place] [address] Performed By: #### I FESC #### [facility] CLIA [id number] [address] [place] [address] [place] Lymphocytes/100 WBC (Bld) 20.5 % Normal [facility] Comment on above: Order Comment: Speci men Type: BLOOD SPECIMEN Ordering Facility: [facility] Address: [address] [place] [address] Performed By: #### I FESC #### [facility] CLIA [id number] [address] [place] [address] [place] MCH (RBC) [Entitic mass] 34.4 pg High 26.0-34.0 [facility] Comment on above: Order Comment: Speci men Type: BLOOD SPECIMEN Ordering Facility: [facility] Address: [address] [place] [address] Performed By: #### I FESC #### [facility] CLIA [id number] [address] [place] [address] [place] MCHC (RBC) [Mass/Vol] 32.2 g/dL Normal 30.5-36.0 [facility] Comment on above: Order Comment: Speci men Type: BLOOD SPECIMEN Ordering Facility: [facility] Address: [address] [place] [address] Performed By: #### I FESC #### [facility] CLIA [id number] [address] [place] [address] [place] MCV (RBC) [Entitic vol] 106.9 fL High 80.0-100.0 [facility] Comment on above: Order Comment: Speci men Type: BLOOD SPECIMEN Ordering Facility: [facility] Address: [address] [place] [address] Performed By: #### I FESC #### [facility] CLIA [id number] [address] [place] [address] [place] Metamyelocytes/100 WBC (Bld) 2.6 % Normal [facility] Comment on above: Order Comment: Speci men Type: BLOOD SPECIMEN Ordering Facility: [facility] Address: [address] [place] [id number] Performed By: #### I FESC #### [facility] CLIA [id number] [address] [place] [address] [place] Monocytes (Bld) [#/Vol] 1.85 10*3/uL High <0.87 [facility] Comment on above: Order Comment: Speci men Type: BLOOD SPECIMEN Ordering Facility: [facility] Address: [address] [place] [address] Performed By: #### I FESC #### [facility] CLIA [id number] [address] [place] [address] [place] Monocytes/100 WBC (Bld) 33.3 % Normal [facility] Comment on above: Order Comment: Speci men Type: BLOOD SPECIMEN Ordering Facility: [facility] Address: [address] [place] [address] Performed By: #### I FESC #### [facility] CLIA [id number] [address] [place] [address] [place] MYELO% 6.8 % Normal [facility] Comment on above: Order Comment: Speci men Type: BLOOD SPECIMEN Ordering Facility: [facility] Address: [address] [place] [address] Performed By: #### I FESC #### [facility] CLIA [id number] [address] [place] [address] [place] Neutrophils (Bld) [#/Vol] 1.94 10*3/uL Normal 1.45-7.50 [facility] Comment on above: Order Comment: Speci men Type: BLOOD SPECIMEN Ordering Facility: [facility] Address: [address] [place] [address] Performed By: #### I FESC #### [facility] CLIA [id number] [address] [id number] [address] [place] Neutrophils/100 WBC (Bld) 35.0 % Normal [facility] Comment on above: Order Comment: Speci men Type: BLOOD SPECIMEN Ordering Facility: [facility] Address: [address] [place] [address] Performed By: #### I FESC #### [facility] CLIA [id number] [address] [place] [address] [place] Nucleated RBC (Bld) [#/Vol] 10*3/uL Normal <0.01 [facility] Comment on above: Order Comment: Speci men Type: BLOOD SPECIMEN Ordering Facility: [facility] Address: [address] [place] [address] Performed By: #### I FESC #### [facility] CLIA [id number] [address] [place] [address] [place] Nucleated RBC/100 WBC (Bld) [Ratio] 0.0 /100 WBC Normal [facility] Comment on above: Order Comment: Speci men Type: BLOOD SPECIMEN Ordering Facility: [facility] Address: [address] [place] [address] Performed By: #### I FESC #### [facility] CLIA [id number] [address] [place] [address] [place] Ovalocytes LM Ql (Bld) Few Normal [facility] Comment on above: Order Comment: Speci men Type: BLOOD SPECIMEN Ordering Facility: [facility] Address: [address] [place] [address] Performed By: #### I FESC #### [facility] CLIA [id number] [address] [place] [address] [place] Platelet mean volume (Bld) [Entitic vol] 10.9 fL Normal 9.0-12.7 [facility] Comment on above: Order Comment: Speci men Type: BLOOD SPECIMEN Ordering Facility: [facility] Address: [address] [place] [address] Performed By: #### I FESC #### [facility] CLIA [id number] [address] [place] [address] [place] Platelets (Bld) [#/Vol] 186 10*3/uL Normal 150-400 [facility] Comment on above: Order Comment: Speci men Type: BLOOD SPECIMEN Ordering Facility: [facility] Address: [address] [place] [address] Performed By: #### I FESC #### [facility] CLIA [id number] [facility] [place] [address] [place] Platelets Estimate (Bld) [#/Vol] Adequate Normal [facility] Comment on above: Order Comment: Speci men Type: BLOOD SPECIMEN Ordering Facility: [facility] Address: [address] [place] [address] Performed By: #### I FESC #### [facility] CLIA [id number] [address] [place] [address] [place] Polychromasia LM Ql (Bld) Slight Normal [facility] Comment on above: Order Comment: Speci men Type: BLOOD SPECIMEN Ordering Facility: [facility] Address: [address] [place] [address] Performed By: #### I FESC #### [facility] CLIA [id number] [address] [place] [address] [place] RBC (Bld) [#/Vol] 3.34 10*6/uL Low 4.20-6.00 [facility] Comment on above: Order Comment: Speci men Type: BLOOD SPECIMEN Ordering Facility: [facility] Address: [address] [place] [address] Performed By: #### I FESC #### [facility] CLIA [id number] [address] [place] [address] [place] RED CELL MORPH Reviewed: see result s of individual morphologies Normal [facility] Comment on above: Order Comment: Speci men Type: BLOOD SPECIMEN Ordering Facility: [facility] Address: [address] [place] [address] Performed By: #### I FESC #### [facility] CLIA [id number] [address] [place] [address] [place] WBC (Bld) [#/Vol] 5.55 10*3/uL Normal 3.70-11.00 [facility] Comment on above: Order Comment: Speci men Type: BLOOD SPECIMEN Ordering Facility: [facility] Address: [address] [place] [address] Performed By: #### I FESC #### [facility] CLIA [id number] [address] [place] [address] [place] WBC Left Shift Ql (Bld) Present Normal [facility] Comment on above: Order Comment: Speci men Type: BLOOD SPECIMEN Ordering Facility: [facility] Address: [address] [place] [address] Performed By: #### I FESC #### [facility] CLIA [id number] [address] [place] [address] [place] CT CHEST W IVCONon 5 CT CHEST W IVCON * * *Final Report* * * DATE OF EXAM: Nov 15 2024 3:21PM [facility] 0539 - CT CHEST W [...] abdomen: Visualized upper abdomen is grossly unremarkable. [employer] (topogram) images: Unremarkable. IMPRESSION: No lymphadenopathy in [...] any questions regarding this interpretation, please call [phone]. If you are unable to reach us at the number above, please feel free to contact [facility] eRadiology at [phone]. [id number] Normal [facility] CT Chest W contrast Shantel IMPRESSION: No [...] any questions regarding this interpretation, please call [phone]. If you are unable to reach us at the number above, please feel free to contact [facility]Radiology at [phone]. DIVISION OF RADIOLOGY * * *Final Report* * * DATE OF EXAM: Nov 15 2024 3:21PM [facility] 0539 - CT CHEST W [...] abdomen: Visualized upper abdomen is grossly unremarkable. [employer] (topogram) images: Unremarkable. DIVISION OF RADIOLOGY Provider, [facility] - 11/15/2024 * * *Final Report* * * DATE OF EXAM: Nov 15 2024 3:21PM [facility] 0539 - CT CHEST W [...] abdomen: Visualized upper abdomen is grossly unremarkable. [employer] (topogram) images: Unremarkable. IMPRESSION IMPRESSION: No lymphadenopathy [...] any questions regarding this interpretation, please call [phone]. If you are unable to reach us at the number above, please feel free to contact [facility] eRadiology at [phone]. [facility] Radiology Study observation (narrative) [facility] CT Chest W contrast IVOrdere d By: [facility] Provider on 11-15-2024 [facility] Comp Metab 2000 Pnl SerPlon 11-15-2024 Protein [Mass/Vol] 6.8 g/dL Normal 6.3-8.0 [facility] Comment on above: Order Comment: Speci jomar Type: BLOOD SPECIMEN Ordering Facility: [facility] Address: [address] [place] [address] Performed By: #### I [facility] #### [facility] CLIA [id number] [address] [place], [place] [address] [place] [address] [place] Order Comment: Speci men Type: BLOOD SPECIMENOrdering Facility: [facility] Address: [address] [place] [address] Performed By: #### 2 885-2 ####[facility] [id number] [place] [id number] [place] [facility] [place] Comprehensive metabolic 2000 panelOrdered By: Niki Lynn on 11-15-2024 Albumin [Mass/Vol] 3.8 g/dL Low 3.9 - 4.9 g/dL [facility] ALP [Catalytic activity/Vol] 83 U/L 38 - 113 U[facility] ALT [Catalytic activity/Vol] 9 U/L Low 10 - 54 U[facility] Anion gap [Moles/Vol] 12 mmol/L 8 - 15 mmol/L [facility] AST [Catalytic activity/Vol] 14 U/L 14 - 40 U/L [facility] Bilirubin [Mass/Vol] 0.4 mg/dL 0.2 - 1 .3 mg/dL [facility] Calcium [Mass/Vol] 9.3 mg/dL 8.5 - 10. 2 mg/dL [facility] Chloride [Moles/Vol] 104 mmol/L 98 - 10 7 mmol/L [facility] CO2 [Moles/Vol] 24 mmol/L 22 - 30 mmol/L [facility] Creatinine [Mass/Vol] 1.27 mg/dL High 0.73 - 1.22 mg/dL [facility] GFR/1.73 sq M.predicted among non-blacks MDRD (S/P/Bld) [Vol rate/Area] 58 mL/min/{1.73_m2} Low - PINF [facility] Comment on above: Estimated Glomerular Filtration Rate [...] 110 mg/dL High 74 - 99 mg/dL [facility] Comment on above: The [place] Diab[employer] Association (ADA) provides guidance for [...] Standards of Medical Care in Diabetes 2016, [place] [employer]. Diabetes Care. 2016.39(Suppl 1). Interpretation and review of laboratory results Abnormal [facility] Potassium [Moles/Vol] 4 mmol/L 3.7 - 5.1 mmol/L [facility] Protein [Mass/Vol] 6.8 g/dL 6.3 - 8.0 g/dL [facility] Sodium [Moles/Vol] 140 mmol/L 136 - 144 mmol/L [facility] Urea nitrogen [Mass/Vol] 21 mg/dL 9 - 24 mg/dL [facility] Comprehensive metabolic 2000 panelon 11-15-2024 Albumin [Mass/Vol] 3.8 g/dL Low 3.9-4.9 [facility] Comment on above: Order Comment: Liliya hadley Type: BLOOD SPECIMEN Ordering Facility: [facility] Address: [address] [place] [address] Performed By: #### I FESC #### [facility] CLIA [id number] [address] [place] [address] [place] ALP [Catalytic activity/Vol] 83 U/L Normal 38-113 [facility] Comment on above: Order Comment: Liliya hadley Type: BLOOD SPECIMEN Ordering Facility: [facility] Address: [address] [place] [address] Performed By: #### I FESC #### [facility] CLIA [id number] [address] [place] [address] [place] ALT [Catalytic activity/Vol] 9 U/L Low 10-54 [facility] Comment on above: Order Comment: Liliya hadley Type: BLOOD SPECIMEN Ordering Facility: [facility] Address: [address] [place] [address] Performed By: #### I FESC #### [facility] CLIA [id number] [address] [place] [address] [place] Anion gap [Moles/Vol] 12 mmol/L Normal 8-15 [facility] Comment on above: Order Comment: Speci men Type: BLOOD SPECIMEN Ordering Facility: [facility] Address: [address] [place] [address] Performed By: #### I FESC #### [facility] CLIA [id number] [address] [place] [address] [place] AST [Catalytic activity/Vol] 14 U/L Normal 14-40 [facility] Comment on above: Order Comment: Speci men Type: BLOOD SPECIMEN Ordering Facility: [facility] Address: [address] [place] [address] Performed By: #### I FESC #### [facility] CLIA [id number] [address] [place] [address] [place] Bilirubin [Mass/Vol] 0.4 mg/dL Normal 0.2-1.3 [facility] Comment on above: Order Comment: Speci men Type: BLOOD SPECIMEN Ordering Facility: [facility] Address: [address] [place] [address] Performed By: #### I FESC #### [facility] CLIA [id number] [address] [place] [address] [place] Calcium [Mass/Vol] 9.3 mg/dL Normal 8.5-10.2 [facility] Comment on above: Order Comment: Speci men Type: BLOOD SPECIMEN Ordering Facility: [facility] Address: [address] [place] [address] Performed By: #### I FESC #### [facility] CLIA [id number] [address] [place] [address] [place] Chloride [Moles/Vol] 104 mmol/L Normal 98-107 [facility] Comment on above: Order Comment: Speci men Type: BLOOD SPECIMEN Ordering Facility: [facility] Address: [address] [place] [address] Performed By: #### I FESC #### [facility] CLIA [id number] [address] [place] [address] [place] CO2 [Moles/Vol] 24 mmol/L Normal 22-30 [facility] Comment on above: Order Comment: Speci men Type: BLOOD SPECIMEN Ordering Facility: [facility] Address: [address] [place] [address] Performed By: #### I FESC #### [facility] CLIA [id number] [address] [place] [address] [place] Creatinine [Mass/Vol] 1.27 mg/dL High 0.73-1.22 [facility] Comment on above: Order Comment: Speci men Type: BLOOD SPECIMEN Ordering Facility: [facility] Address: [address] [place] [address] Performed By: #### I FESC #### [facility] CLIA [id number] [address] [place] [address] [place] Creatinine and Glomerular filtration rate.predicted panel (S/P/Bld) 58 mL/min/1.73m??? Low >=60 [facility] Comment on above: Order Comment: Speci men Type: BLOOD SPECIMEN Ordering Facility: [facility] Address: [address] [place] [address] Result Comment: Ary mated Glomerular Filtration Rate [...] GFR. Performed By: #### I FESC #### [facility] CLIA [id number] [address] [place] [address] [place] Glucose [Mass/Vol] 110 mg/dL High 74-99 [facility] Comment on above: Order Comment: Speci men Type: BLOOD SPECIMEN Ordering Facility: [facility] Address: [address] [place] [address] Result Comment: The [place] Diabetes Association (ADA) provides guidance for cutoff [...] Standards of Medical Care in Diabetes 2016, [place] [employer]. Diabetes Care. 2016.39(Suppl 1). Performed By: #### I FESC #### [facility] CLIA [id number] [address] [place] [address] [place] Potassium [Moles/Vol] 4.0 mmol/L Normal 3.7-5.1 [facility] Comment on above: Order Comment: Liliya hadley Type: BLOOD SPECIMEN Ordering Facility: [facility] Address: [address] [place] [address] Performed By: #### I FESC #### [facility] CLIA [id number] [address] [place] [address] [place] Sodium [Moles/Vol] 140 mmol/L Normal 136-144 [facility] Comment on above: Order Comment: Liliya hadley Type: BLOOD SPECIMEN Ordering Facility: [facility] Address: [address] [place] [address] Performed By: #### I FESC #### [facility] CLIA [id number] [address] [place] [address] [place] Urea nitrogen [Mass/Vol] 21 mg/dL Normal 9-24 [facility] Comment on above: Order Comment: Liliya hadley Type: BLOOD SPECIMEN Ordering Facility: [facility] Address: [address] [place] [address] Performed By: #### I FESC #### [facility] CLIA [id number] [address] IMMUNOFIXATION SCREEN, SERUM on 11-15-2024 MPA RESULT No M protein is identified. Normal No M protein is identified. [facility] Comment on above: Order Comment: Speci men Type: BLOOD SPECIMENOrdering Facility: [facility] Address: [address] [place] [address] Performed By: #### I FESC ####[facility] [id number] [address] OF [facility] STAFF REVIEW (MPA) Reviewed by Xiomara powell M.D. Normal [facility] Comment on above: Order Comment: Speci men Type: BLOOD SPECIMENOrdering Facility: [facility] Address: [address] [place] [address] Performed By: #### I FESC ####[facility] [id number] [place] [id number] [place] IMMUNOGLOBULINS,IGG,IGA,IGMo n 11-15-2024 IgA [Mass/Vol] 127 mg/dL Normal 70-400 [facility] Comment on above: Order Comment: Speci men Type: BLOOD SPECIMENOrdering Facility: [facility] Address: [address] [place] [address] Performed By: #### S ERIMM ####[facility] [id number] [address], [facility] [place] IgG [Mass/Vol] 1016 mg/dL Normal 700-1600 [facility] Comment on above: Order Comment: Speci men Type: BLOOD SPECIMENOrdering Facility: [facility] Address: [address] [place] [address] Performed By: #### S ERIMM ####[facility] [id number] [place] [id number] [place] IgM [Mass/Vol] 109 mg/dL Normal 40-230 [facility] Comment on above: Order Comment: Speci men Type: BLOOD SPECIMENOrdering Facility: [facility] Address: [address] [place] [address] Performed By: #### S GIANLUCA ####[facility] [id number] [place] [address] [place] KAPPA/ARDON,FREE,SERon 2024 Immunoglobulin light chains.kappa.free (S) [Mass/Vol] 27.0 mg/L High 3.3-19.4 [facility] Comment on above: Order Comment: Speci men Type: BLOOD SPECIMEN Ordering Facility: [facility] Address: [address] [place] [address] Result Comment: Rare ly, increased serum free light chains levels may not be detected or accurately quantified due to prozone phenomenon or in high viscosity samples using this immunoturbidimetric assay. Correlation with other laboratory results and clinical findings is recommended. The [place] Free Light Chain was performed using the Binding Site Optilite immunoturbidimetric method. Result obtained with different assay methods or kits cannot be used interchangeably. Performed By: #### I FESC #### [facility] CLIA [id number] [address] [place] [address] [place] Immunoglobulin light chains.kappa/Immunog lobulin light chains.lambda (S) [Mass ratio] 1.66 High 0.26-1.65 [facility] Comment on above: Order Comment: Speci men Type: BLOOD SPECIMEN Ordering Facility: [facility] Address: [address] [place] [address] Performed By: #### I FESC #### [facility] CLIA [id number] [address] [place] [address] [place] Immunoglobulin light chains.lambda.free [Mass/Vol] 16.3 mg/L Normal 5.7-26.3 [facility] Comment on above: Order Comment: Speci men Type: BLOOD SPECIMEN Ordering Facility: [facility] Address: [address] [place] [address] Result Comment: Rare ly, increased serum free [...] interchangeably. Performed By: #### I FES #### [facility] CLIA [id number] [address] [place] [address] [place] PROTEIN ELECTROPHORESIS SERU M (P)on 11-15-2024 Albumin [Mass/Vol] 3.85 g/dL Normal 3.43-5.41 [facility] Comment on above: Order Comment: Speci men Type: BLOOD SPECIMENOrdering Facility: [facility] Address: [address] [place] [address] Performed By: #### L [id number] ####[facility] [id number] [place] [address] [place] Alpha 1 globulin Elph [Mass/Vol] 0.40 g/dL Normal 0.18-0.43 [facility] Comment on above: Order Comment: Speci men Type: BLOOD SPECIMENOrdering Facility: [facility] Address: [address] [place] [address] Performed By: #### L [id number] ####[facility] [id number] [place] [address] [place] Alpha 2 globulin Elph [Mass/Vol] 0.80 g/dL Normal 0.42-0.98 [facility] Comment on above: Order Comment: Speci men Type: BLOOD SPECIMENOrdering Facility: [facility] Address: [address] [place] [address] Performed By: #### L [id number] ####[facility] [id number] [place] [id number] [place] Beta globulin Elph [Mass/Vol] 0.82 g/dL Normal 0.61-1.17 [facility] Comment on above: Order Comment: Speci men Type: BLOOD SPECIMENOrdering Facility: [facility] Address: [address] [place] [address] Performed By: #### L [id number] ####[facility] [id number] [place] [address] [place] Gamma globulin Elph [Mass/Vol] 0.93 g/dL Normal 0.53-1.51 [facility] Comment on above: Order Comment: Speci men Type: BLOOD SPECIMENOrdering Facility: [facility] Address: [address] [place] [address] Performed By: #### L [id number] ####[facility] [id number] [place] [address] [place] M-PROTEIN LOCATION Normal [facility] Comment on above: Order Comment: Speci men Type: BLOOD SPECIMENOrdering Facility: [facility] Address: [address] [place] [address] Result Comment: Not Applicable. Performed By: #### L [id number] ####[facility] [id number] [place] [address] [place] Protein Fractions [Interp] No definitive M protein is identified on protein electrophoresis. Normal No definitive M protein is identified on protein electrophore sis. [facility] Comment on above: Order Comment: Speci men Type: BLOOD SPECIMENOrdering Facility: [facility] Address: [address] [place], [place] [address] Performed By: #### L [id number] ####[facility] [id number] [place] [id number] [place] Protein.monoclonal Elph [Mass/Vol] 0.00 g/dL Normal <=0.00 [facility] Comment on above: Order Comment: Speci men Type: BLOOD SPECIMENOrdering Facility: [facility] Address: [address] [place] [address] Performed By: #### L [id number] ####[facility] [id number] [address] SPE STAFF REVIEW Reviewed by Xiomara powell M.D. [facility] Comment on above: Order Comment: Speci men Type: BLOOD SPECIMENOrdering Facility: [facility] Address: [address] [place] [address] Performed By: #### L [id number] ####[facility]IA [id number] [place] [id number] [facility] 36on 11-07-2024 36 Regarding echo resul t from 11/04/2024: MD Mayra Wellington MA His echocardiogram shows stable findings. Follow-up as planned. Patient made aware. [facility] Office Visiton 10-21-2024 Follow-up visit [id number] Tremaine Juarez 1945 M Date Provider Department Center 10/21/2024 Laura-DANIELLA EASTON KRISTEN Pulido Family History Problem Relation Age of Onset Stroke Father Family Status - Relation Status Age at Father Level of Service:62614 CT OFFICE/OUTPATIENT ESTABLISHED LOW MDM 20 MIN [facility] Oswaldo 10-14-2024 LIDAN Telephone (CHERRY) -- CHIKI JUAREZ ([id number]) 1945 M Date Time Provider Department 10/14/24 [...] [C83.30] Order(s):COMPREHENSIVE METABOLIC PANEL [SQCMP] Order #: [id number] FUTURE COMPLETE BLOOD COUNT AND DIFFERENTIAL [SQCBCDIF] Order #: [id number] FUTURE PROTEIN ELECTROPHORESIS SERUM W/INTERP [SQSEPG] Order #: [id number] FUTURE MONOCLONAL PROTEIN, SERUM (BLOOD) [SQSERMPA] Order #: [id number] FUTURE Prescriptions as of 10/14/2024 - TEZSPIRE [...] Encounter Status:Closed by ARABELLA MANDUJANO on 10/14/24 [facility] Ambulatory Visit Summaryon 0 08-25-2024 Ambulatory Visit [...] EDT With: Navarro VENTURA, Pito Davidson Where: [address] [address]- Thursday 8:00 AM EDT With: Where: [address] [phone]- Thursday 9:45 AM EDT With: MIKE VENTURA, Oni Sewell Where: [facility] [address] [place] [address]- Medications What How Much When Why Instructions [...] Every day Oxygen - patient states his checker just increased this to 4LPM Unchanged potassium [...] prostate cance (more content not included)... Normal [facility] Medicine Office/Clini c Noteon 08-25-2024 [...] to trialing Zyrtec for congestion relief. The checker, overseeing ongoing respiratory management, is scheduled for [...] disease, unspecified) Monitor exacerbation pattern and consult checker regarding chronic antibiotic therapy approval. Explore potential for chronic Zyrtec use for congestion relief upon checker's input. 4. Chronic diastolic heart failure (I50.32: [...] obstruction Card (more content not included)... Normal [facility] Comment on above: Result Comment: Elec tronically Signed By: Navarro VENTURA, Pito Davidson\.br\Date and Time Signed: 08/25/24 12:44 EST No Panel InformationOrdered By: Malou Wynne on 08-04-2024 [facility] Ambulatory Visit Summaryon 1 09-12-2023 Ambulatory Visit [...] EST With: Navarro VENTURA, Pito Davidson Where: [address] [address]- Thursday 8:00 AM EDT With: Where: [address] [id number]- Thursday 9:45 AM EDT With: MIKE VENTURA, Oni Sewell Where: [facility] [address] [place] [address]- Medications What How Much When Why Instructions [...] Every day Oxygen - patient states his checker just increased this to 4LPM Unchanged potassium [...] lymphoma Histor (more content not included)... Normal [facility] Family Medicine Office/Clini c Noteon 07-13-2024 [...] day(s), # 6 tab(s), Refills(s) 0, Pharmacy: [facility]/pharmacy #[id number], 168, cm, 07/13/24 10:34:00 EST, Height/Length Dosing, 101.9, kg, 07/13/24 10:34:00 EST, Weight Dosing methylPREDNISolone, = 1 packet(s), Oral, As Directed, as directed on package labeling, X 6 day(s), # 21 tab(s), Refills(s) 0, Pharmacy: [facility]/pharmacy #[id number], 168, cm, 07/13/24 10:34:00 EST, [...] qual (more content not included)... Normal [facility] Comment on above: Result Comment: Elec tronically Signed By: MARKUS CERNA CNP.otf\Date and Time Signed: 07/13/24 10:55 EST Oswaldo 06-10-2024 LIDAN Telephone (HEMASA) -- CHIKI JUAREZ ([id number]) 1945 M Date Time Provider Department 06/10/24 VALERIE MAYES During your visit today, we recorded the following information about you: Valerie Mayes RN 06/10/2024 8:[address] Mayra Berg, [facility] called and spoke with BRM yesterday [...] schedule a CT for November. Shea Kolb [facility] Valerie Mayes RN 06/13/2024 9:36 AM Signed notified and transferred to [facility] to schedule CT as recommended prior to return visit with BRM. SANTI Rojas Trisha 06/13/2024 10:38 AM Signed Patient is scheduled 11/15/24 at 1:30 PM Shea Kolb [facility] Allergies As of Date: 06/10/2024 Noted Allergy Reaction SPIRONOLACTONE 09/18/2021 14 - Other: See Comments Comments: Leg cramps, Hyperkalemia Date Reviewed: 06/06/2024 Reviewed by: Yolanda Montague MA - Fully Assessed Reason for Visit: Pet results [Other] Primary Visit Diagnosis:Localized enlarged lymph nodes [R59.0] Order(s):CT CHEST W IVCON [[id number]] Order #: [id number] FUTURE [] iv contrast (will be provided [...] line spec (more content not included)... Normal [facility] CNOVSPon 06-06-2024 CNOVSP Visit (SP) Office (H EMASA) -- CHIKI JUAREZ ([id number]) 1945 M Date Time Provider Department 06/06/24 [...] Temp 3 (more content not included)... Normal [facility] 06-01-2024 L Specimen: [id number] Received: 06/01/24 Status: GABBY Giron Num: [id number] Spec Type: Surgical Subm Dr: Connor Crawley DO Tissues: A Skin-Other than Cyst, tag, debridement or plastic repair (L CHEEK LESION) B Skin-Other than Cyst, tag, debridement or plastic repair (SCALP LESION) Procedures: HE/8, Gross/Micro L4/2, FS HE/8 Age/ Patient Sex Location Account Attending Physician Chiki Juarez 79/M [place] [id number] Connor Crawley DO SPEC NUM: [id number] RECD: 06/01/24 STATUS: GABBY GIRON NUM: [id number] MARIAN: 06/01/[address]: Connor Crawley DO ENTERED: 06/01/[address] [facility] [address]: SPEC TYPE: Surgical DEPT: S ENTERED BY: [id number] RECV BY: [id number] ORDERED: HE/8, Gross/Micro L4/2, FS HE/8 ORDERED: [...] the correct patient's name and scalp Specimen: [id number] Received: 06/01/24 Status: GABBY Giron Num: [id number] Spec Type: Surgical Subm Dr: Connor Crawley DO Tissues: A Skin-Other than Cyst, tag, debridement or plastic repair (L CHEEK LESION) B Skin-Other than Cyst, tag, debridement or plastic repair (SCALP LESION) Procedures: HE/8, Gross/Micro L4/2, FS 8 Patient: Chiki Juarez [id number] (Continued) Specimen: [id number] Received: 06/01/24 (Continued) Gross Description (Continued) Signed (signature on file) Randy Tillman MD 06/03/24 1151 Specimen: [id number] Received: 06/01/24 Status: GABBY Giron Num: [id number] Spec Type: Surgical Subm Dr: Connor Crawley DO Tissues: A Skin-Other than Cyst, tag, debridement or plastic repair (L CHEEK LESION) B Skin-Other than Cyst, tag, debridement or plastic repair (SCALP LESION) Procedures: DHARA/, Gross/Micro L4/2, FS Patient: Chiki Juarez [id number] (Continued) Specimen: [id number] Received: 06/01/24 (Continued) Gross Description (Continued) lesion [...] Nichols CPT Codes 88 305 x 2 92899 x 2 Specimen: [id number] Received: 06/01/24 Status: GABBY Giron Num: [id number] Spec Type: Surgical Subm Dr: Connor Crawley,DO Tissues: A Skin-Other than Cyst, tag, debridement or plastic repair (L CHEEK L (more content not included)... Normal [facility] Provider Letteron 06-01-2024 Provider Letter Provider Letter June 01, 2024 CHIKI JUAREZ [address] [place] [id number] : 1945 Dear Kwaku, We have been trying to reach you with no success. It is important that you return our call regarding your mobility scooter upon receiving this letter. Also, at the time of your call, please provide us with your current information. Thank you for your prompt attention to this matter. Sincerely, Family Medicine [place] [phone] ext [phone] [facility] Ambulatory Visit Summaryon 1 Ambulatory Visit [...] EST With: Navarro VENTURA, Pito Davidson Where: [address] [address]- Thursday 8:00 AM EDT With: Where: [address] [address]- Thursday 9:45 AM EDT With: Oni MCKEON MD Where: [facility] [address] [place], [place] [id number]- Medications What How Much When Why Instructions [...] Every day Oxygen - patient states his checker just increased this to 4LPM Contact prescribing physician if questions or concerns Unchanged potassium chloride (potassium chl (more content not included)... 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 Chronic kidney disease stage 3a is managed [...] 3352F Influ (more content not included)... Normal [facility] Comment on above: Result Comment: Elec tronically Signed By: Navarro VENTURA, Pito Davidson\.br\Date and Time Signed: 05/17/24 11:03 EDT Office Visiton 05-13-2024 Follow-up visit [id number] Tremaine Juarez 1945 M Date Provider Department Center 05/13/2024 DANIELLA CARDONA KRISTEN [facility] Family History Problem Relation Age of Onset Stroke Father Family Status - Relation Status Age at Father Level of Service:12654 CT OFFICE/OUTPATIENT ESTABLISHED LOW MDM 20 MIN Normal [facility] No Panel Informationon 05-03 [facility] Type of biopsy: abernathy ential [...] taken Amount of lidocaine used: 1.0 cc [employer] Type of biopsy: abernathy ential Informed consent: [...] taken Amount of lidocaine used: 1.0 cc [employer] Type of biopsy: abernathy ential Informed consent: [...] taken Amount of lidocaine used: 2.0 cc [employer] [facility] [employer] GLUCOSE, BLOOD (POC)on 04-29 Glucose [Mass/Vol] 98 mg/dL 74 - 99 mg/dL [facility] Comment on above: Location:[facility], [address] [place] [address] , [place], [place], [facility] The Accu-Chek Inform II glucose meter has [...] blood gas instrument) in the above situations. [facility] NM PET/CT SKULL-THIGH SUBQon 04-29-2024 NM PET/CT SKULL-THIGH SUBQ * * *Final Report* * * DATE OF EXAM: Apr 29 2024 3:28PM NRN 0063 - UT PET/CT SKULL-THIGH SUBQ / PROCEDURE REASON: multiple [...] * Uptake Time: 45 minutes * Radiopharmaceutical: V24-Djdkbexdzpfqovmqrf (FDG) COMPARISON: No previous FDG PET/CT available [...] any questions regarding this interpretation, please call [phone]. If you are unable to reach us at the number above, please feel free to contact [facility] eRadiology at [phone]. [id number] Normal [facility] Urology Office/Clinic Noteon 04-22-2024 Urology Office/Clinic Note [...] [facility] [address], [place] [address] [phone] Additional Instructions: 1 yr w/ PSA Patient [...] Cap, 300 (more content not included)... Normal [facility] Comment on above: Result Comment: Elec tronically Signed By: Oni MCKEON MD\.br\Date and Time Signed: 04/22/24 10:37 EDT\.br\Electronically Co-Signed By: Nettie Wolff\.br\Date and Time Co-Signed: 04/22/24 10:36 EDT CBC W Auto Differential pane l (Bld)on 04-20-2024 Anisocytosis Ql (Bld) Present [facility] Basophils (Bld) [#/Vol] 0.00 10*3/uL NINF [facility] Basophils/100 WBC (Bld) 0.0 % [facility] Differential cell count method Nom (Bld) Manual [facility] Eosinophils (Bld) [#/Vol] 0.00 10*3/uL [facility] Eosinophils/100 WBC (Bld) 0.0 % [facility] Erythrocyte distribution width (RBC) [Ratio] 15.2 % High 11.5 - 15.0 % [facility] Hematocrit (Bld) [Volume fraction] 37.6 % Low 39.0 - 51.0 % [facility] Hemoglobin (Bld) [Mass/Vol] 12.3 g/dL Low 13.0 - 17.0 g/dL [facility] Interpretation and review of laboratory results Abnormal [facility] Lymphocytes (Bld) [#/Vol] 0.75 10*3/uL Low [facility] Lymphocytes/100 WBC (Bld) 17.0 % [facility] MCH (RBC) [Entitic mass] 34.2 pg High 26.0 - 34.0 pg [facility] MCHC (RBC) [Mass/Vol] 32.7 g/dL 30.5 - 36.0 g/dL [facility] MCV (RBC) [Entitic vol] 104.4 fL High 80.0 - 100.0 fL [facility] [place] % 1.0 % [facility] Monocytes (Bld) [#/Vol] 1.73 10*3/uL High NINF [facility] Monocytes/100 WBC (Bld) 39.0 % [facility] Neutrophils (Bld) [#/Vol] 1.91 10*3/uL [facility] Neutrophils/100 WBC (Bld) 43.0 % [facility] Nucleated RBC (Bld) [#/Vol] NINF [facility] Nucleated RBC/100 WBC (Bld) [Ratio] 0.0 % /100 WBC [facility] Ovalocytes LM Ql (Bld) Few [facility] Platelet mean volume (Bld) [Entitic vol] 10.0 fL 9.0 - 12.7 fL [facility] Platelets (Bld) [#/Vol] 136 10*3/uL Low [facility] Platelets Estimate (Bld) [#/Vol] Adequate [facility] Polychromasia LM Ql (Bld) Slight [facility] RBC (Bld) [#/Vol] 3.60 10*6/uL Low 4.20 - 6.0 0 m/uL [facility] Red Cell Morph Reviewed: see result s of individual morphologies [facility] WBC (Bld) [#/Vol] 4.44 10*3/uL [facility] WBC Left Shift Ql (Bld) Present [facility] ANC=1.55 The followi ng results were reported as preliminary values due to instrument flagging. Interpret with caution. Final results may vary.Results requested and read back by: [email or web address] @1418 9'3'24 GAY This is an appended report. These results have been appended to a previously verified report. [facility] Basic metabolic 2000 panelon 04-19-2024 Anion gap [Moles/Vol] 15 mmol/L 8 - 15 mmol/L [facility] Calcium [Mass/Vol] 9.2 mg/dL 8.5 - 10. 2 mg/dL [facility] Comment on above: Corrected result: Pr eviously reported as 9.6 mg/dL on 04/19/2024 at 2:41 PM EDT. Chloride [Moles/Vol] 105 mmol/L 98 - 10 7 mmol/L [facility] CO2 [Moles/Vol] 25 mmol/L 22 - 30 mmol/L [facility] Comment on above: Corrected result: Pr eviously reported as 27 mmol/L on 04/19/2024 at 2:41 PM EDT. Creatinine [Mass/Vol] 1.37 mg/dL High 0.73 - 1.22 mg/dL [facility] Comment on above: Corrected result: Pr eviously reported as 1.36 mg/dL on 04/19/2024 at 2:41 PM EDT. GFR/1.73 sq M.predicted among non-blacks MDRD (S/P/Bld) [Vol rate/Area] 53 mL/min/{1.73_m2} Low - PINF [facility] Comment on above: Estimated Glomerular Filtration Rate [...] 120 mg/dL High 74 - 99 mg/dL [facility] Comment on above: The [place] Diab[employer] s Association (ADA) provides guidance for [...] Standards of Medical Care in Diabetes 2016, [place] [employer]. Diabetes Care. 2016.39(Suppl 1). Corrected result: Previously reported as 126 mg/dL on 04/19/2024 at 2:41 PM EDT. Interpretation and review of laboratory results Abnormal [facility] Potassium [Moles/Vol] 4.4 mmol/L 3.7 - 5.1 mmol/L [facility] Sodium [Moles/Vol] 145 mmol/L High 136 - 144 mmol/L [facility] Urea nitrogen [Mass/Vol] 20 mg/dL 9 - 24 mg/dL [facility] Comment on above: Corrected result: Pr eviously reported as 21 mg/dL on 04/19/2024 at 2:41 PM EDT. [facility] Anion gap [Moles/Vol] 15 mmol/L Normal 8-15 [facility] Comment on above: Order Comment: Speci men Type: BLOOD SPECIMENOrdering Facility: [facility] Address: [address] [place] [address] Performed By: #### 2 4321-2 ####[facility] [id number] [place] [address] [place] Calcium [Mass/Vol] 9.2 mg/dL Normal 8.5-10.2 [facility] Comment on above: Order Comment: Speci men Type: BLOOD SPECIMENOrdering Facility: [facility] Address: [address] [place] [address] Result Comment: Enmanuel ected result: Previously reported as 9.6 mg/dL on 04/19/2024 at 2:41 PM EDT. Performed By: #### 2 4321-2 ####[facility]IA [id number] [place] [address] [place] Chloride [Moles/Vol] 105 mmol/L Normal 98-107 [facility] Comment on above: Order Comment: Speci men Type: BLOOD SPECIMENOrdering Facility: [facility] Address: [address] [place] [address] Performed By: #### 2 4321-2 ####[facility] [id number] [place] [address] [place] CO2 [Moles/Vol] 25 mmol/L Normal 22-30 [facility] Comment on above: Order Comment: Speci men Type: BLOOD SPECIMENOrdering Facility: [facility] Address: [address] [place] [address] Result Comment: Enmanuel ected result: Previously reported as 27 mmol/L on 04/19/2024 at 2:41 PM EDT. Performed By: #### 2 4321-2 ####[facility] [id number] [place] [address] [place] Creatinine [Mass/Vol] 1.37 mg/dL High 0.73-1.22 [facility] Comment on above: Order Comment: Speci men Type: BLOOD SPECIMENOrdering Facility: [facility] Address: [address] [place] [address] Result Comment: Enmanuel ected result: Previously reported as 1.36 mg/dL on 04/19/2024 at 2:41 PM EDT. Performed By: #### 2 4321-2 ####[facility] [id number] [place] [address] [place] Creatinine and Glomerular filtration rate.predicted panel (S/P/Bld) 53 mL/min/1.73m??? Low >=60 [facility] Comment on above: Order Comment: Speci men Type: BLOOD SPECIMENOrdering Facility: [facility] Address: [address] [place] [address] Result Comment: Ary mated Glomerular Filtration Rate [...] PM EDT. Performed By: #### 2 4321-2 ####[facility] [id number] [place] [address] [place] Glucose [Mass/Vol] 120 mg/dL High 74-99 [facility] Comment on above: Order Comment: Speci men Type: BLOOD SPECIMENOrdering Facility: [facility] Address: [address] [place] [address] Result Comment: The [place] Diabetes Association (ADA) provides guidance for cutoff [...] Standards of Medical Care in Diabetes 2016, [place] Diabetes Association. Diabetes Care. 2016.39(Suppl 1). Corrected result: Previously reported as 126 mg/dL on 04/19/2024 at 2:41 PM EDT. Performed By: #### 2 4321-2 ####[facility] [id number] [place] [address] [place] Potassium [Moles/Vol] 4.4 mmol/L Normal 3.7-5.1 [facility] Comment on above: Order Comment: Speci men Type: BLOOD SPECIMENOrdering Facility: [facility] Address: [address] [place] [address] Performed By: #### 2 4321-2 ####[facility] LABIA [id number] [place] [address] [place] Sodium [Moles/Vol] 145 mmol/L High 136-144 [facility] Comment on above: Order Comment: Speci men Type: BLOOD SPECIMENOrdering Facility: [facility] Address: [address] [place] [address] Performed By: #### 2 4321-2 ####[facility] LABIA [id number] [place] [address] [place] Urea nitrogen [Mass/Vol] 20 mg/dL Normal 9-24 [facility] Comment on above: Order Comment: Speci men Type: BLOOD SPECIMENOrdering Facility: [facility] Address: [address] [place] [address] Result Comment: Enmanuel ected result: Previously reported as 21 mg/dL on 04/19/2024 at 2:41 PM EDT. Performed By: #### 2 4321-2 ####[facility] LABCLIA [id number] [place] [address] [place] CBC W Auto Differential pane l (Bld)on 04-19-2024 Anisocytosis Ql (Bld) Present Normal [facility] Comment on above: Order Comment: Speci men Type: BLOOD SPECIMENOrdering Facility: [facility] Address: [address] [place] [address] Performed By: #### 5 7021-8 ####[facility] LABCLIA [id number] [address] LABCLIA [id number] [place] [address] [place] Basophils (Bld) [#/Vol] 0.00 10*3/uL Normal <0.11 [facility] Comment on above: Order Comment: Speci men Type: BLOOD SPECIMENOrdering Facility: [facility] Address: [address] [place] [address] Performed By: #### 5 7021-8 ####[facility] LABCLIA [id number] [address] LABCLIA [id number] [place] [address] [place] Basophils/100 WBC (Bld) 0.0 % Normal [facility] Comment on above: Order Comment: Speci men Type: BLOOD SPECIMENOrdering Facility: [facility] Address: [address] [place] [address] Performed By: #### 5 7021-8 ####[facility] LABCLIA [id number] [address] LABCLIA [id number] [place] [address] [place] Differential cell count method Nom (Bld) Manual Normal [facility] Comment on above: Order Comment: Speci men Type: BLOOD SPECIMENOrdering Facility: [facility] Address: [address] [place] [address] Performed By: #### 5 7021-8 ####[facility] LABCLIA [id number] [address] LABCLIA [id number] [place] [address] [place] Eosinophils (Bld) [#/Vol] 0.00 10*3/uL Normal <0.46 [facility] Comment on above: Order Comment: Speci men Type: BLOOD SPECIMENOrdering Facility: [facility] Address: [address] [place] [address] Performed By: #### 5 7021-8 ####[facility] LABCLIA [id number] [address] LABCLIA [id number] [place] [address] [place] Eosinophils/100 WBC (Bld) 0.0 % Normal [facility] Comment on above: Order Comment: Speci men Type: BLOOD SPECIMENOrdering Facility: [facility] Address: [address] [place] [address] Performed By: #### 5 7021-8 ####[facility] LABCLIA [id number] [address] LABCLIA [id number] [place] [address] [place] Erythrocyte distribution width (RBC) [Ratio] 15.2 % High 11.5-15.0 [facility] Comment on above: Order Comment: Speci men Type: BLOOD SPECIMENOrdering Facility: [facility] Address: [address] [place] [address] Performed By: #### 5 7021-8 ####[facility] LABCLIA [id number] [place] [id number] LABCLIA [id number] [place] [address] [place] Hematocrit (Bld) [Volume fraction] 37.6 % Low 39.0-51.0 [facility] Comment on above: Order Comment: Speci men Type: BLOOD SPECIMENOrdering Facility: [facility] Address: [address] [place] [address] Performed By: #### 5 7021-8 ####[facility] LABCLIA [id number] [address] LABCLIA [id number] [place] [address] [place] Hemoglobin (Bld) [Mass/Vol] 12.3 g/dL Low 13.0-17.0 [facility] Comment on above: Order Comment: Speci men Type: BLOOD SPECIMENOrdering Facility: [facility] Address: [address] [place] [address] Performed By: #### 5 7021-8 ####[facility] LABCLIA [id number] [address] LABCLIA [id number] [place] [address] [place] Lymphocytes (Bld) [#/Vol] 0.75 10*3/uL Low 1.00-4.00 [facility] Comment on above: Order Comment: Speci men Type: BLOOD SPECIMENOrdering Facility: [facility] Address: [address] [place] [address] Performed By: #### 5 7021-8 ####[facility] LABCLIA [id number] [address] LABCLIA [id number] [place] [address] [place] Lymphocytes/100 WBC (Bld) 17.0 % Normal [facility] Comment on above: Order Comment: Speci men Type: BLOOD SPECIMENOrdering Facility: [facility] Address: [address] [place] [address] Performed By: #### 5 7021-8 ####[facility] LABCLIA [id number] [address] LABCLIA [id number] [place] [address] [place] MCH (RBC) [Entitic mass] 34.2 pg High 26.0-34.0 [facility] Comment on above: Order Comment: Speci men Type: BLOOD SPECIMENOrdering Facility: [facility] Address: [address] [place] [address] Performed By: #### 5 7021-8 ####[facility] LABCLIA [id number] [address] LABCLIA [id number] [place] [address] [place] MCHC (RBC) [Mass/Vol] 32.7 g/dL Normal 30.5-36.0 [facility] Comment on above: Order Comment: Speci men Type: BLOOD SPECIMENOrdering Facility: [facility] Address: [address] [place] [address] Performed By: #### 5 7021-8 ####[facility] LABCLIA [id number] [address] LABCLIA [id number] [place] [address] [place] MCV (RBC) [Entitic vol] 104.4 fL High 80.0-100.0 [facility] Comment on above: Order Comment: Speci men Type: BLOOD SPECIMENOrdering Facility: [facility] Address: [address] [place] [address] Performed By: #### 5 7021-8 ####[facility] LABCLIA [id number] [place] [id number] LABCLIA [id number] [place] [address] [place] Metamyelocytes/100 WBC (Bld) 1.0 % Normal [facility] Comment on above: Order Comment: Speci men Type: BLOOD SPECIMENOrdering Facility: [facility] Address: [address] [place] [address] Performed By: #### 5 7021-8 ####[facility] LABCLIA [id number] [address] LABCLIA [id number] [place] [address] [place] Monocytes (Bld) [#/Vol] 1.73 10*3/uL High <0.87 [facility] Comment on above: Order Comment: Speci men Type: BLOOD SPECIMENOrdering Facility: [facility] Address: [address] [place] [address] Performed By: #### 5 7021-8 ####[facility] LABCLIA [id number] [address] LABCLIA [id number] [place] [address] [place] Monocytes/100 WBC (Bld) 39.0 % Normal [facility] Comment on above: Order Comment: Speci men Type: BLOOD SPECIMENOrdering Facility: [facility] Address: [address] [place] [address] Performed By: #### 5 7021-8 ####[facility] LABCLIA [id number] [address] LABCLIA [id number] [place] [address] [place] Neutrophils (Bld) [#/Vol] 1.91 10*3/uL Normal 1.45-7.50 [facility] Comment on above: Order Comment: Speci men Type: BLOOD SPECIMENOrdering Facility: [facility] Address: [address] [place] [address] Performed By: #### 5 7021-8 ####ABDIRAHMAN [facility] LABCLIA [id number] [address] LABCLIA [id number] [place] [address] [place] Neutrophils/100 WBC (Bld) 43.0 % Normal [facility] Comment on above: Order Comment: Speci men Type: BLOOD SPECIMENOrdering Facility: [facility] Address: [address] [place] [address] Performed By: #### 5 7021-8 ####SEATTLESOURAV [facility] LABCLIA [id number] [address] LABCLIA [id number] [place] [address] [place] Nucleated RBC (Bld) [#/Vol] 10*3/uL Normal <0.01 [facility] Comment on above: Order Comment: Speci men Type: BLOOD SPECIMENOrdering Facility: [facility] Address: [address] [place] [address] Performed By: #### 5 7021-8 ####[facility]ITAL[facility]TONIO [facility] LABCLIA [id number] [address] LABCLIA [id number] [place] [address] [place] Nucleated RBC/100 WBC (Bld) [Ratio] 0.0 /100 WBC Normal [facility] Comment on above: Order Comment: Speci men Type: BLOOD SPECIMENOrdering Facility: [facility] Address: [address] [place] [address] Performed By: #### 5 7021-8 ####[facility]ITAL[facility]TON[facility] LABCLIA [id number] [address] LABCLIA [id number] [place] [id number] [place] Ovalocytes LM Ql (Bld) Few Normal [facility] Comment on above: Order Comment: Speci men Type: BLOOD SPECIMENOrdering Facility: [facility] Address: [address] [place] [address] Performed By: #### 5 7021-8 ####[facility] LABCLIA [id number] [address] LABCLIA [id number] [place] [address] [place] Platelet mean volume (Bld) [Entitic vol] 10.0 fL Normal 9.0-12.7 [facility] Comment on above: Order Comment: Speci men Type: BLOOD SPECIMENOrdering Facility: [facility] Address: [address] [place] [address] Performed By: #### 5 7021-8 ####[facility] LABCLIA [id number] [address] LABCLIA [id number] [place] [address] [place] Platelets (Bld) [#/Vol] 136 10*3/uL Low 150-400 [facility] Comment on above: Order Comment: Speci men Type: BLOOD SPECIMENOrdering Facility: [facility] Address: [address] [place] [address] Performed By: #### 5 7021-8 ####[facility] LABCLIA [id number] [address] LABCLIA [id number] [place] [address] [place] Platelets Estimate (Bld) [#/Vol] Adequate Normal [facility] Comment on above: Order Comment: Speci men Type: BLOOD SPECIMENOrdering Facility: [facility] Address: [address] [place], [place] [address] Performed By: #### 5 7021-8 ####[facility] LABCLIA [id number] [address] LABCLIA [id number] [place] [address] [place] Polychromasia LM Ql (Bld) Slight Normal [facility] Comment on above: Order Comment: Speci men Type: BLOOD SPECIMENOrdering Facility: [facility] Address: [address] [place] [address] Performed By: #### 5 7021-8 ####[facility] LABCLIA [id number] [address] LABCLIA [id number] [place] [address] [place] RBC (Bld) [#/Vol] 3.60 10*6/uL Low 4.20-6.00 [facility] Comment on above: Order Comment: Speci men Type: BLOOD SPECIMENOrdering Facility: [facility] Address: [address] [place] [address] Performed By: #### 5 7021-8 ####[facility] LABCLIA [id number] [address] LABCLIA [id number] [place] [address] [place] RED CELL MORPH Reviewed: see result s of individual morphologies Normal [facility] Comment on above: Order Comment: Speci men Type: BLOOD SPECIMENOrdering Facility: [facility] Address: [address] [place] [address] Performed By: #### 5 7021-8 ####[facility] LABCLIA [id number] [address] LABCLIA [id number] [place] [address] [place] WBC (Bld) [#/Vol] 4.44 10*3/uL Normal 3.70-11.00 [facility] Comment on above: Order Comment: Speci men Type: BLOOD SPECIMENOrdering Facility: [facility] Address: [address] [place] [address] Performed By: #### 5 7021-8 ####[facility] LABCLIA [id number] [address] LABIA [id number] [place] [address] [place] WBC Left Shift Ql (Bld) Present Normal [facility] Comment on above: Order Comment: Speci men Type: BLOOD SPECIMENOrdering Facility: [facility] Address: [address] [place] [address] Performed By: #### 5 7021-8 ####[facility] LABCLIA [id number] [address] LABCLIA [id number] [address] [place] CNOVSPon 04-19-2024 CNOVSP Visit (SP) Office (H EMASA) -- CHIKI JUAREZ ([id number]) 1945 M Date Time Provider Department 04/19/24 [...] visit here he followed up with his checker at [facility] for 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 For [...] date: Acute maxillary sinusitis No date: Cancer (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) No date: COVID No date: Cystic fibrosis gene carrier No date: Dysarthria following nontraumatic intracerebral hemorrhage No date: Hypothyroidism No date: Hypoxemia No date: Multiple myeloma ([facility]) No date: Pulmonary edema No date: Stroke ([facility]) No date: Thyroid disease Comment: aquired due [...] or palpitati (more content not included)... Normal [facility]Non [facility]20[facility] CHIKI JUAREZ ([id number]) 1945 M Date Time Provider Department 04/19/24 [facility] During your visit today, we recorded the following information about you: Mechelle Allred 04/19/2024 3:08 PM Signed Please ref patient to [facility] Dermatology. Dx Skin Lesion blaise facial area. Their office to call the patient to schedule/ Rhona, Please fax records Julius, Please follow up on this appt. Jennie Ye 04/20/2024 9:34 AM Signed Rhona: Information ready for you. Su Hodges 04/20/2024 10:41 AM Signed Records faxed to [facility] Dermatology. Su Pickett 04/26/2024 10:35 AM Signed [...] Status:Closed by SHERON METCALF on 04/26/24 Normal [facility] IMMUNOFIXATION SCREEN, SERUM on 04-19-2024 INTERPRETATION (MPA) Atypical restricted bands are present in the IgG and lambda regions. Consistent with IgG lambda monoclonal gammopathy. Normal [facility] Comment on above: Order Comment: Speci men Type: BLOOD SPECIMENOrdering Facility: [facility] Address: [address] [place] [address] Performed By: #### I FESC ####[facility] LABIA [id number] [address] [place] MPA RESULT M protein is present. Abnormal No M p rotein is identified. [facility] Comment on above: Order Comment: Speci men Type: BLOOD SPECIMENOrdering Facility: [facility] Address: [address] [place] [address] Performed By: #### I FESC ####[facility] LABIA [id number] [address] [place] STAFF [place]VIEW ([facility]) Reviewed by Alison Langford MD Normal [facility] Comment on above: Order Comment: Speci men Type: BLOOD SPECIMENOrdering Facility: [facility] Address: [address] [place] [address] Performed By: #### I FESC ####[facility] LABCLIA [id number] [place] [id number] [place] IMMUNOGLOBULINS,IGG,IGA,IGMo n 04-19-2024 IgA [Mass/Vol] 124 mg/dL Normal 70-400 [facility] Comment on above: Order Comment: Sonyi men Type: BLOOD SPECIMENOrdering Facility: [facility] Address: [address] [place] [address] Performed By: #### S ERIMM ####[facility] LABCLIA [id number] [place] [address] [place] IgG [Mass/Vol] 1147 mg/dL Normal 700-1600 [facility] Comment on above: Order Comment: Speci men Type: BLOOD SPECIMENOrdering Facility: [facility] Address: [address] [place] [address] Performed By: #### S ERIMM ####[facility] LABCLIA [id number] [place] [address] [place] IgM [Mass/Vol] 75 mg/dL Normal 40-230 [facility] Comment on above: Order Comment: Speci men Type: BLOOD SPECIMENOrdering Facility: [facility] Address: [address] [place] [address] Performed By: #### S ERIMM ####[facility] LABCLIA [id number] [place] [address] [place] KAPPA/ARDON,FREE,SERon 2023 Immunoglobulin light chains.kappa.free (S) [Mass/Vol] 34.6 mg/L High 3.3-19.4 [facility] Comment on above: Order Comment: Speci men Type: BLOOD SPECIMEN [facility]ing [facility]: [facility] Address: [address] [place] [address] Result Comment: Rare ly, increased serum free light chains levels may not be detected or accurately quantified due to prozone phenomenon or in high viscosity samples using this immunoturbidimetric assay. Correlation with other laboratory results and clinical findings is recommended. The [place] Free Light Chain was performed using the Binding Site Optilite immunoturbidimetric method. Result obtained with different assay methods or kits cannot be used interchangeably. Performed By: #### I FESC #### [facility] CLIA [id number] [address] [place] [address] [place] Immunoglobulin light chains.kappa/Immunog lobulin light chains.lambda (S) [Mass ratio] 1.90 High 0.26-1.65 [facility] Comment on above: Order Comment: Speci men Type: BLOOD SPECIMEN [facility] Address: [address] [place] [address] Performed By: #### I FESC #### [facility] CLIA [id number] [address] [place] [address] [place] Immunoglobulin light chains.lambda.free [Mass/Vol] 18.2 mg/L Normal 5.7-26.3 [facility] Comment on above: Order Comment: Speci men Type: BLOOD SPECIMEN Ordering Facility: [facility] Address: [address] [place] [address] Result Comment: Rare ly, increased serum free [...] interchangeably. Performed By: #### I FES #### [facility] CLIA [id number] [address] [place] [address] [place] PROTEIN ELECTROPHORESIS SERU M WITH CARSON (P)on 04-19-2024 Albumin [Mass/Vol] 3.82 g/dL Normal 3.43-5.41 [facility] Comment on above: Order Comment: Speci men Type: BLOOD SPECIMENOrdering Facility: [facility] Address: [address] [place] [address] Performed By: #### L [id number] ####[facility] LABCLIA [id number] [place] [address] [place] Alpha 1 globulin Elph [Mass/Vol] 0.33 g/dL Normal 0.18-0.43 [facility] Comment on above: Order Comment: Speci men Type: BLOOD SPECIMENOrdering Facility: [facility] Address: [address] [place] [address] Performed By: #### L [id number] ####[facility] LABCLIA [id number] [address] [place] Alpha 2 globulin Elph [Mass/Vol] 0.69 g/dL Normal 0.42-0.98 [facility] Comment on above: Order Comment: Speci men Type: BLOOD SPECIMENOrdering Facility: [facility] Address: [address] [place] [address] Performed By: #### L [id number] ####[facility] LABCLIA [id number] [address] [place] Beta globulin Elph [Mass/Vol] 0.80 g/dL Normal 0.61-1.17 [facility] Comment on above: Order Comment: Speci men Type: BLOOD SPECIMENOrdering Facility: [facility] Address: [address] [place] [address] Performed By: #### L [id number] ####[facility] LABIA [id number] [address] STATES OF [facility] COMMENT (SERUM PROT ELECTRO) Monoclonal Protein analysis (immunofixation) is not indicated. Normal [facility] Comment on above: Order Comment: Speci men Type: BLOOD SPECIMENOrdering Facility: [facility] Address: [address] [place] [address] Performed By: #### L [id number] ####[facility] LABCLIA [id number] [address] [place] Gamma globulin Elph [Mass/Vol] 0.95 g/dL Normal 0.53-1.51 [facility] Comment on above: Order Comment: Speci men Type: BLOOD SPECIMENOrdering Facility: [facility] Address: [address] [place] [address] Performed By: #### L [id number] ####[facility] LABCLIA [id number] [address] [place] INTERPRETATION COMMENT FOR PROTEIN ELECTROPHORESIS The atypical region is relatively poorly defined and may represent an unusual presentation of polyclonal immunoglobulins, but cannot rule out the presence of a low level M protein. If clinically indicated, monoclonal protein analysis and serum free light chain analysis are suggested to evaluate further for monoclonal gammopathy. Normal [facility] Comment on above: Order Comment: Speci men Type: BLOOD SPECIMENOrdering Facility: [facility] Address: [address] [place] [address] Performed By: #### L [id number] ####[facility] LABCLIA [id number] [place] [address] [place] M-PROTEIN LOCATION Normal [facility] Comment on above: Order Comment: Speci men Type: BLOOD SPECIMENOrdering Facility: [facility] Address: [address] [place] [address] Result Comment: Not Applicable. Performed By: #### L [id number] ####[facility] LABCLIA [id number] [place] [address] [place] Protein Fractions [Interp] An atypical region of restricted mobility is identified on protein electrophoresis. Abnormal No definitive M protein is identified on protein electrophore sis. [facility] Comment on above: Order Comment: Speci men Type: BLOOD SPECIMENOrdering Facility: [facility] Address: [address] [place] [address] Performed By: #### L [id number] ####[facility] LABCLIA [id number] [place] [id number] [place] Protein.monoclonal Elph [Mass/Vol] 0.00 g/dL Normal <=0.00 [facility] Comment on above: Order Comment: Speci men Type: BLOOD SPECIMENOrdering Facility: [facility] Address: [address] [place], [place] [address] Performed By: #### L [id number] ####[facility] LABCLIA [id number] [place] [id number] [place] SPE STAFF REVIEW Reviewed by Alison Langford MD Normal [facility] Comment on above: Order Comment: Speci men Type: BLOOD SPECIMENOrdering Facility: [facility] Address: [address] [place] [address] Performed By: #### L [id number] ####[facility] LABCLIA [id number] [place] [address] [place] Prot SerPl-mCncon 04-19-2024 Protein [Mass/Vol] 6.6 g/dL Normal 6.3-8.0 [facility] Comment on above: Order Comment: Speci men Type: BLOOD SPECIMENOrdering Facility: [facility] Address: [address] [place] [address] Performed By: #### 2 885-2 ####[facility] LABCLIA [id number] [place] [address] [place] Reminderson 03-03-2024 Reminders Reminders From: Solange Broussard To: [place] - Recalls Mckeon; Sent: 06/09/2023 16:03:24 EDT Show up: 01/16/2024 16:03:00 EDT Subject: renal US Due Date/Time: 02/01/2024 16:03:00 EDT Reminder/Recall Patient needs renal US prior to February 2024 appt f/u scheduled 03/14/24 LM on pt's VM notifying him that order for ZAMZAM has been faxed to [facility]. They should be reaching out to get him scheduled. If he does not hear from them w/in 1wk he is to call our office. F/U schedule dw/PRW 03/14/24 to review results. ZAMZAM scheduled 03/03/24. F/U schedule dw/PRW 03/14/24 to review results. Completed Normal [facility]ell[facility] Oswaldo 02-02-2024 RAINA Telephone (DONITA) -- ALTHEACHIKI HERNANDEZ ([id number]) 1945 M Date Time Provider Department 02/02/24 [...] Status:Closed by VALERIE MAYES on 02/02/24 Normal [facility] Basic metabolic 2000 panelon 01-21-2024 Anion gap [Moles/Vol] 7 mmol/L Low 8-15 [facility] Comment on above: Order Comment: Speci men Type: BLOOD SPECIMENOrdering Facility: [facility] Address: [address] [place] [address] [place] [address] Performed By: #### 2 4321-2 ####[facility] LABCLIA [id number] [place] [address] Calcium [Mass/Vol] 9.3 mg/dL Normal 8.5-10.2 [facility] Comment on above: Order Comment: Speci men Type: BLOOD SPECIMENOrdering Facility: [facility] Address: [address] [place] [address] Performed By: #### 2 4321-2 ####[facility] LABCLIA [id number] [place] [address] Chloride [Moles/Vol] 109 mmol/L High 98-107 [facility] Comment on above: Order Comment: Speci men Type: BLOOD SPECIMENOrdering Facility: [facility] Address: [address] [place] [address] Performed By: #### 2 4321-2 ####[facility] LABCLIA [id number] [place] [address] CO2 [Moles/Vol] 26 mmol/L Normal 22-30 [facility] Comment on above: Order Comment: Speci men Type: BLOOD SPECIMENOrdering Facility: [facility] Address: [address] [place] [address] Performed By: #### 2 4321-2 ####[facility] LABCLIA [id number] [place] [address] Creatinine [Mass/Vol] 1.31 mg/dL High 0.73-1.22 [facility] Comment on above: Order Comment: Speci men Type: BLOOD SPECIMENOrdering Facility: [facility] Address: [address] [place] [address] Performed By: #### 2 4321-2 ####[facility] LABCLIA [id number] [place] [address] Creatinine and Glomerular filtration rate.predicted panel (S/P/Bld) 56 mL/min/1.73m??? Low >=60 [facility] Comment on above: Order Comment: Speci men Type: BLOOD SPECIMENOrdering Facility: [facility] Address: [address] [place] [id number] Result Comment: Ary mated Glomerular Filtration Rate [...] GFR. Performed By: #### 2 4321-2 ####[facility] LABCLIA [id number] [place] [address] Glucose [Mass/Vol] 121 mg/dL High 74-99 [facility] Comment on above: Order Comment: Liliya hadley Type: BLOOD SPECIMENOrdering Facility: [facility] Address: [address] [place] [address] Result Comment: The [place] Diabetes [employer] (ADA) provides guidance for cutoff [...] Standards of Medical Care in Diabetes 2016, [place] [employer]. Diabetes Care. 2016.39(Suppl 1). Performed By: #### 2 4321-2 ####[facility] LABCLIA [id number] [place] [address] Potassium [Moles/Vol] 4.1 mmol/L Normal 3.7-5.1 [facility] Comment on above: Order Comment: Liliya hadley Type: BLOOD SPECIMENOrdering Facility: [facility] Address: [address] [place] [id number] Performed By: #### 2 4321-2 ####[facility] LABCLIA [id number] [place] [address] Sodium [Moles/Vol] 142 mmol/L Normal 136-144 [facility] Comment on above: Order Comment: Speci men Type: BLOOD SPECIMENOrdering Facility: [facility] Address: [address] [place] [address] Performed By: #### 2 4321-2 ####[facility] LABCLIA [id number] [place] [address] Urea nitrogen [Mass/Vol] 17 mg/dL Normal 9-24 [facility] Comment on above: Order Comment: Speci men Type: BLOOD SPECIMENOrdering Facility: [facility] Address: [address] [place] [address] Performed By: #### 2 4321-2 ####[facility] LABCLIA [id number] [place] [address] CBC W Auto Differential pane l (Bld)on 01-21-2024 Basophils (Bld) [#/Vol] 10*3/uL Normal <0.11 [facility] Comment on above: Order Comment: Speci men Type: BLOOD SPECIMENOrdering Facility: [facility] Address: [address] [place] [address] Performed By: #### 5 7021-8 ####[facility] LABCLIA [id number] [place] [address] Basophils/100 WBC (Bld) 0.3 % Normal [facility] Comment on above: Order Comment: Speci men Type: BLOOD SPECIMENOrdering Facility: [facility] Address: [address] [place] [address] Performed By: #### 5 7021-8 ####[facility] LABCLIA [id number] [place] [address] Differential cell count method Nom (Bld) Auto Normal [facility] Comment on above: Order Comment: Speci men Type: BLOOD SPECIMENOrdering Facility: [facility] Address: [address] [place] [address] Performed By: #### 5 7021-8 ####[facility] LABCLIA [id number] [place] [address] Eosinophils (Bld) [#/Vol] 10*3/uL Normal <0.46 [facility] Comment on above: Order Comment: Speci men Type: BLOOD SPECIMENOrdering Facility: [facility] Address: [address] [place] [address] Performed By: #### 5 7021-8 ####[facility] LABCLIA [id number] [place] [address] Eosinophils/100 WBC (Bld) 0.3 % Normal [facility] Comment on above: Order Comment: Speci men Type: BLOOD SPECIMENOrdering Facility: [facility] Address: [address] [place] [address] Performed By: #### 5 7021-8 ####[facility] LABCLIA [id number] [place] [address] Erythrocyte distribution width (RBC) [Ratio] 14.6 % Normal 11.5-15.0 [facility] Comment on above: Order Comment: Speci men Type: BLOOD SPECIMENOrdering Facility: [facility] Address: [address] [place] [address] Performed By: #### 5 7021-8 ####[facility] LABCLIA [id number] [place] [address] Hematocrit (Bld) [Volume fraction] 35.7 % Low 39.0-51.0 [facility] Comment on above: Order Comment: Speci men Type: BLOOD SPECIMENOrdering Facility: [facility] Address: [address] [place] [address] Performed By: #### 5 7021-8 ####[facility] LABCLIA [id number] [place] [address] Hemoglobin (Bld) [Mass/Vol] 11.4 g/dL Low 13.0-17.0 [facility] Comment on above: Order Comment: Speci men Type: BLOOD SPECIMENOrdering Facility: [facility] Address: [address] [place] [address] Performed By: #### 5 7021-8 ####[facility] LABCLIA [id number] [place] [address] Immature granulocytes (Bld) [#/Vol] 0.08 10*3/uL Normal <0.10 [facility] Comment on above: Order Comment: Speci men Type: BLOOD SPECIMENOrdering Facility: [facility] Address: [address] [place] [address] Performed By: #### 5 7021-8 ####[facility] LABCLIA [id number] [place] [address] Immature granulocytes/100 WBC (Bld) 2.2 % Normal [facility] Comment on above: Order Comment: Speci men Type: BLOOD SPECIMENOrdering Facility: [facility] Address: [address] [place] [address] Performed By: #### 5 7021-8 ####[facility] LABCLIA [id number] [place] [address] Lymphocytes (Bld) [#/Vol] 0.92 10*3/uL Low 1.00-4.00 [facility] Comment on above: Order Comment: Speci men Type: BLOOD SPECIMENOrdering Facility: [facility] Address: [address] [place] [address] Performed By: #### 5 7021-8 ####[facility] LABCLIA [id number] [place] [address] Lymphocytes/100 WBC (Bld) 25.2 % Normal [facility] Comment on above: Order Comment: Speci men Type: BLOOD SPECIMENOrdering Facility: [facility] Address: [address] [place] [address] Performed By: #### 5 7021-8 ####[facility] LABCLIA [id number] [place] [address] MCH (RBC) [Entitic mass] 33.8 pg Normal 26.0-34.0 [facility] Comment on above: Order Comment: Speci men Type: BLOOD SPECIMENOrdering Facility: [facility] Address: [address] [place] [address] Performed By: #### 5 7021-8 ####[facility] LABCLIA [id number] [place] [address] MCHC (RBC) [Mass/Vol] 31.9 g/dL Normal 30.5-36.0 [facility] Comment on above: Order Comment: Speci men Type: BLOOD SPECIMENOrdering Facility: [facility] Address: [address] [place] [address] Performed By: #### 5 7021-8 ####[facility] LABCLIA [id number] [place] [address] MCV (RBC) [Entitic vol] 105.9 fL High 80.0-100.0 [facility] Comment on above: Order Comment: Speci men Type: BLOOD SPECIMENOrdering Facility: [facility] Address: [address] [place] [address] Performed By: #### 5 7021-8 ####[facility] LABCLIA [id number] [place] [address] Monocytes (Bld) [#/Vol] 1.38 10*3/uL High <0.87 [facility] Comment on above: Order Comment: Speci men Type: BLOOD SPECIMENOrdering Facility: [facility] Address: [address] [place] [address] Performed By: #### 5 7021-8 ####[facility] LABCLIA [id number] [place] [address] Monocytes/100 WBC (Bld) 37.8 % Normal [facility] Comment on above: Order Comment: Speci men Type: BLOOD SPECIMENOrdering Facility: [facility] Address: [address] [place] [address] Performed By: #### 5 7021-8 ####[facility] LABCLIA [id number] [place] [address] Neutrophils (Bld) [#/Vol] 1.25 10*3/uL Low 1.45-7.50 [facility] Comment on above: Order Comment: Speci men Type: BLOOD SPECIMENOrdering Facility: [facility] Address: [address] [place] [address] Performed By: #### 5 7021-8 ####[facility] LABCLIA [id number] [place] [address] Neutrophils/100 WBC (Bld) 34.2 % Normal [facility] Comment on above: Order Comment: Speci men Type: BLOOD SPECIMENOrdering Facility: [facility] Address: [address] [place] [address] Performed By: #### 5 7021-8 ####[facility] LABCLIA [id number] [place] [address] Nucleated RBC (Bld) [#/Vol] 10*3/uL Normal <0.01 [facility] Comment on above: Order Comment: Speci men Type: BLOOD SPECIMENOrdering Facility: [facility] Address: [address] [place] [address] Performed By: #### 5 7021-8 ####[facility] LABCLIA [id number] [place] [address] Nucleated RBC/100 WBC (Bld) [Ratio] 0.0 /100 WBC Normal [facility] Comment on above: Order Comment: Speci men Type: BLOOD SPECIMENOrdering Facility: [facility] Address: [address] [place] [address] Performed By: #### 5 7021-8 ####[facility] LABCLIA [id number] [place] [address] Platelet mean volume (Bld) [Entitic vol] 9.6 fL Normal 9.0-12.7 [facility] Comment on above: Order Comment: Speci men Type: BLOOD SPECIMENOrdering Facility: [facility] Address: [address] [place] [address] Performed By: #### 5 7021-8 ####[facility] LABCLIA [id number] [place] [address] Platelets (Bld) [#/Vol] 151 10*3/uL Normal 150-400 [facility] Comment on above: Order Comment: Speci men Type: BLOOD SPECIMENOrdering Facility: [facility] Address: [address] [place] [address] Performed By: #### 5 7021-8 ####[facility] LABIA [id number] [place] [address] RBC (Bld) [#/Vol] 3.37 10*6/uL Low 4.20-6.00 [facility] Comment on above: Order Comment: Speci men Type: BLOOD SPECIMENOrdering Facility: [facility] Address: [address] [place] [address] Performed By: #### 5 7021-8 ####[facility] LABIA [id number] [place] [address] WBC (Bld) [#/Vol] 3.65 10*3/uL Low 3.70-11.00 [facility] Comment on above: Order Comment: Speci men Type: BLOOD SPECIMENOrdering Facility: [facility] Address: [address] [place] [address] Performed By: #### 5 7021-8 ####[facility] LABIA [id number] [place] [address] IMMUNOFIXATION SCREEN, SERUM on 01-21-2024 INTERPRETATION (MPA) Atypical restricted band is present in the lambda region. Consistent with lambda containing monoclonal gammopathy. IgD and IgE negative by immunofixation. [place]formed [place] Normal [facility] Comment on above: Order Comment: Speci men Type: BLOOD SPECIMEN [facility] Address: [address] [place] [address] Performed By: #### I FESC #### [facility] CLIA [id number] [address] [place] [address] [place] MPA RESULT M protein is present. Abnormal No M p rotein is identified. [facility] Comment on above: Order Comment: Speci men Type: BLOOD SPECIMEN [facility] Address: [address] [place] [address] Performed By: #### I FESC #### [facility] CLIA [id number] [address] [place] [address] OF [place] STAFF REVIEW (MPA) Reviewed by Dr. Rowan Ibarra MD [facility] Comment on above: Order Comment: Speci men Type: BLOOD SPECIMEN [facility] Address: [address] [place] [address] Performed By: #### I FESC #### [facility] CLIA [id number] [address] [place] [address] [place] IMMUNOGLOBULINS,IGG,IGA,IGMo n 01-21-2024 IgA [Mass/Vol] 110 mg/dL Normal 70-400 [facility] Comment on above: Order Comment: Speci men Type: BLOOD SPECIMEN [facility] Address: [address] [place] [address] Performed By: #### I FESC #### [facility] CLIA [id number] [address] [place] [address] [place] IgG [Mass/Vol] 1011 mg/dL Normal 700-1600 [facility] Comment on above: Order Comment: Speci men Type: BLOOD SPECIMEN [facility] Address: [address] [place] [address] Performed By: #### I FESC #### [facility] CLIA [id number] [address] [place] [address] [place] IgM [Mass/Vol] 64 mg/dL Normal 40-230 [facility] Comment on above: Order Comment: Speci men Type: BLOOD SPECIMEN [facility] Address: [address] [place] [address] Performed By: #### I FES #### [facility] CLIA [id number] [address] [place] [address] [place] KAPPA/ARDON,FREE,SERon 2023 Immunoglobulin light chains.kappa.free (S) [Mass/Vol] 30.8 mg/L High 3.3-19.4 [facility] Comment on above: Order Comment: Speci men Type: BLOOD SPECIMEN [facility] Address: [address] [place] [address] Result Comment: Rare ly, increased serum free light chains levels may not be detected or accurately quantified due to prozone phenomenon or in high viscosity samples using this immunoturbidimetric assay. Correlation with other laboratory results and clinical findings is recommended. The [place] Free Light Chain was performed using the Binding Site Optilite immunoturbidimetric method. Result obtained with different assay methods or kits cannot be used interchangeably. Performed By: #### K LFRS #### [facility] CLIA [id number] [address] [place] [address] [place] Immunoglobulin light chains.kappa/Immunog lobulin light chains.lambda (S) [Mass ratio] 1.77 High 0.26-1.65 [facility] Comment on above: Order Comment: Speci men Type: BLOOD SPECIMEN [facility] Address: [address] [place] [address] Performed By: #### K LFRS #### [facility] CLIA [id number] [address] [place] [address] [place] Immunoglobulin light chains.lambda.free [Mass/Vol] 17.4 mg/L Normal 5.7-26.3 [facility] Comment on above: Order Comment: Speci men Type: BLOOD SPECIMEN [facility] Address: [address] [place] [address] Result Comment: Rare ly, increased serum free [...] interchangeably. Performed By: #### K LFRS #### [facility] CLIA [id number] [address] [place] [address] [place] PROTEIN ELECTROPHORESIS SERU M WITH CARSON (P)on 01-21-2024 Albumin [Mass/Vol] 3.53 g/dL Normal 3.43-5.41 [facility] Comment on above: Order Comment: Speci men Type: BLOOD SPECIMENOrdering Facility: [facility] Address: [address] [place] [address] Performed By: #### L [id number] ####[facility] LABCLIA [id number] [place] [address] [place] Alpha 1 globulin Elph [Mass/Vol] 0.36 g/dL Normal 0.18-0.43 [facility] Comment on above: Order Comment: Speci men Type: BLOOD SPECIMENOrdering Facility: [facility] Address: [address] [place] [address] Performed By: #### L [id number] ####[facility] LABCLIA [id number] [place] [address] [place] Alpha 2 globulin Elph [Mass/Vol] 0.73 g/dL Normal 0.42-0.98 [facility] Comment on above: Order Comment: Speci men Type: BLOOD SPECIMENOrdering Facility: [facility] Address: [address] [place] [address] Performed By: #### L [id number] ####[facility] LABCLIA [id number] [place] [address] [place] Beta globulin Elph [Mass/Vol] 0.74 g/dL Normal 0.61-1.17 [facility] Comment on above: Order Comment: Speci men Type: BLOOD SPECIMENOrdering Facility: [facility] Address: [address] [place] [address] Performed By: #### L [id number] ####[facility] LABIA [id number] [place] [address] [place] COMMENT (SERUM PROT ELECTRO) Monoclonal Protein analysis (immunofixation) is not indicated. Normal [facility] Comment on above: Order Comment: Speci men Type: BLOOD SPECIMENOrdering Facility: [facility] Address: [address] [place] [address] Performed By: #### L [id number] ####[facility] [id number] [place] [address] [place] Gamma globulin Elph [Mass/Vol] 0.84 g/dL Normal 0.53-1.51 [facility] Comment on above: Order Comment: Speci men Type: BLOOD SPECIMENOrdering Facility: [facility] Address: [address] [place] [address] Performed By: #### L [id number] ####[facility] LABIA [id number] [place] [address] [place] INTERPRETATION COMMENT FOR PROTEIN ELECTROPHORESIS See separate immunofixation report for characterization of monoclonal gammopathy. Normal [facility] Comment on above: Order Comment: Speci men Type: BLOOD SPECIMENOrdering Facility: [facility] Address: [address] [place] [address] Performed By: #### L [id number] ####[facility] LABIA [id number] [place] [address] [place] M-PROTEIN LOCATION Gamma Fraction 1 Normal [facility] Comment on above: Order Comment: Speci men Type: BLOOD SPECIMENOrdering Facility: [facility] Address: [address] [place] [address] Performed By: #### L [id number] ####[facility] LABCLIA [id number] [place] [address] [place] Protein Fractions [Interp] An M protein is identified on protein electrophoresis. Abnormal No definitive M protein is identified on protein electrophore sis. [facility] Comment on above: Order Comment: Speci men Type: BLOOD SPECIMENOrdering Facility: [facility] Address: [address] [place] [address] Performed By: #### L [id number] ####[facility] LABIA [id number] [place] [address] [place] Protein.monoclonal Elph [Mass/Vol] 0.10 g/dL High <=0.00 [facility] Comment on above: Order Comment: Speci men Type: BLOOD SPECIMENOrdering Facility: [facility] Address: [address] [place] [address] Performed By: #### L [id number] ####[facility] LABIA [id number] [place] [address] [place] SPE STAFF REVIEW Reviewed by Fran Boyd MD, Ph.D ([id number]) Normal [facility] Comment on above: Order Comment: Speci men Type: BLOOD SPECIMENOrdering Facility: [facility] Address: [address] [place] [address] Performed By: #### L [id number] ####[facility] LABIA [id number] [place] [address] [place] [facility] Prostate specific Ag [Mass/Vol] 0.23 ng/mL Normal <2.60 [facility] Comment on above: Order Comment: Speci men Type: BLOOD SPECIMENOrdering Facility: [facility] Address: [address] [place] [address] Result Comment: Tota l PSA test methodology used is the Electrochemiluminescence Immunoassay by [employer]. Total PSA values by differing methodologies cannot be interchanged. Performed By: #### 2 857-1 ####[facility]CLIA [id number] [facility] [place] [address] [place] Prot SerPl-mCncon 01-21-2024 Protein [Mass/Vol] 6.2 g/dL Low 6.3-8.0 [facility] Comment on above: Order Comment: Speci men Type: BLOOD SPECIMEN Ordering Facility: [facility] Address: [address] [place] [address] Performed By: #### I [facility] #### [facility] CLIA [id number] [address] [place], [place] [address] [address] [place] CHEMISTRYOrdered By: SYSTEM [...] reviewed by ts . PROF CHEM 8 ([facility])on Anion gap [Moles/Vol] 14.0 mmol/L Normal [facility] Comment on above: Performed By: #### B MP ####[facility] [address] [place] [address]Dr. Trevor Nichols Calcium [Mass/Vol] 8.8 mg/dL Normal 8.5-10.1 [facility] Comment on above: Performed By: #### B MP ####[facility] [address] [place] [address]Dr. Trevor Nichols Chloride [Moles/Vol] 104 mmol/L Normal 98-107 [facility] Comment on above: Performed By: #### B MP ####[facility] [address] [place] [address]Dr. Trevor Nichols CO2 [Moles/Vol] 26.0 mmol/L Normal 21.0-32.0 [facility] Comment on above: Performed By: #### B MP ####[facility] [address] [place] [address]Dr. Trevor Nichols Creatinine [Mass/Vol] 1.49 mg/dL Critically high 0.70-1.30 [facility] Comment on above: Performed By: #### B MP ####[facility] [address] [place] [address]Dr. Trevor Nichols EGFR-AF BENINESE 56 mL/min/1.73m2 Critically low >=60 [facility] Comment on above: Performed By: #### B MP ####[facility] [address] [place] [address]Dr. Trevor Nichols EGFR-NON AF BENINESE 46 mL/min/1.73m2 Critically low >=60 [facility] Comment on above: Performed By: #### B MP ####[facility] [address] [place] [address]Dr. Trevor Nichols Glucose [Mass/Vol] 115 mg/dL Critically high 74-106 [facility] Comment on above: Performed By: #### B MP ####[facility] [address] [place] [address]Dr. Trevor Nichols Potassium [Moles/Vol] 4.0 mmol/L Normal 3.5-5.1 [facility] Comment on above: Performed By: #### B MP ####[facility] [address] [place] [address]Dr. Trevor Nichols Sodium [Moles/Vol] 140 mmol/L Normal 136-145 [facility] Comment on above: Performed By: #### B MP ####[facility] [address] [place] [address]Dr. Trevor Nichols Urea nitrogen [Mass/Vol] 22.0 mg/dL Critically high 7.0-18.0 [facility] Comment on above: Performed By: #### B MP ####[facility] [address] [place] [address]Dr. Trevor Nichols Urea nitrogen/Creatinine [Mass ratio] 14.8 mg/mg Normal [facility] Comment on above: Performed By: #### B MP ####[facility] [address] [place] [address]Dr. Trevor Nichols NM STRESS/REST MULTIon 04-16 NM STRESS/REST MULTI Patient: JANNETH JUAREZ Exam Date: 04/16/2022 : 1945 Gender:M Ordering : DR DANIELLA EASTON M.D. Admission #: [id number] Family : DR WILL SHERWOOD . Order #: [id number] CLICK HERE TO VIEW EXAM RADIOLOGY REPORT [...] Beatty MD on 04/16/2022 at 10:23 Normal [facility] ECHOCARDIO M/2D COMPLETEon 0 02-19-2022 ECHOCARDIO M/2D COMPLETE Patient: CHIKI JUAREZ Exam Date: 02/19/2022 : 1945 Gender:M Ordering : [employer] Admission #: [id number] Family : DR WILL SHERWOOD . Order #: [id number] CLICK HERE TO VIEW EXAM ECHOCARDIOGRAM REPORT [...] M.D. on 02/19/2022 at 19:53 Normal [facility] LIPID PROFILEon 02-10-2022 CHOL-HDL RATIO NORM SEE BELOW Normal [facility] Comment on above: Result Comment: 3.3 - 4.4 LOW RISK 4.4 - 7.1 AVERAGE RISK 7.1 - 11.0 MODERATE RISK >11.0 HIGH RISK Performed By: #### L IPID #### [facility] [address] [place] [address] Dr. Trevor Nichols Cholesterol [Mass/Vol] 171 mg/dL Normal <=200 [facility] Comment on above: Performed By: #### L IPID #### [facility] [address] [place] [address] Dr. Trevor Nichols Cholesterol in HDL [Mass/Vol] 40 mg/dL Normal 40-60 [facility] Comment on above: Performed By: #### L IPID #### [facility] [address] [place] [address] Dr. Trevor Nichols Cholesterol in LDL [Mass/Vol] 114.0 mg/dL Normal [facility] Comment on above: Performed By: #### L IPID #### [facility] [address] [place] [address] Dr. Trevor Nichols Cholesterol.total/Ch olesterol in HDL [Mass ratio] 4.3 {ratio} Normal [facility] Comment on above: Performed By: #### L IPID #### [facility] [address] [place] [address] Dr. Trevor Nichols HDL NORMAL > or = 60 mg/dl - LO W CARDIOVASCULAR RISK <40 mg/dl - HIGH CARDIOVASCULAR RISK Normal [facility] Comment on above: Performed By: #### L IPID #### [facility] [address] [place] [address] Dr. Trevor Nichols LDL CALC NORMAL SEE BELOW Normal [facility] Comment on above: Result Comment: <100 mg/dl OPTIMAL 100 - 129 mg/dl NEAR OR ABOVE OPTIMAL 130 - 159 mg/dl BORDERLINE HIGH 160 - 189 mg/dl HIGH >190 mg/dl VERY HIGH Performed By: #### L IPID #### [facility] [address] [place] [address] Dr. Trevor Nichols Triglyceride [Mass/Vol] 85 mg/dL Normal <=150 [facility] Comment on above: Performed By: #### L IPID #### [facility] [address] [place] [address] Dr. Trevor Nichols VLDL CALC 17.0 mg/dL Normal [facility] Comment on above: Performed By: #### L IPID #### [facility] [address] [place] [address] Dr. Trevor Nichols BNPon 02-05-2022 Natriuretic peptide B (Bld) [Mass/Vol] 231.0 pg/mL Normal <=900.0 [facility] Comment on above: Performed By: #### H STROPN, BNP, BMP #### [facility] [address] [place] [address] Dr. Trevor Nichols CBC W MANUAL DIFFon 02-06-20 ANISOCYTOSIS 1+ Normal [facility] Comment on above: Performed By: #### C JOBY #### [facility] [address] [place] [address] Dr. Trevor Nichols ATYPICAL LYMPH # Normal [facility] Comment on above: Performed By: #### C JOBY #### [facility] [address] [place] [address] Dr. Trevor Nichols ATYPICAL LYMPH % Normal [facility] Comment on above: Performed By: #### C JOBY #### [facility] [address] [place] [address] Dr. Trevor Nichols BAND # 0.3 103/ul Normal 0.0-0.3 [facility] Comment on above: Performed By: #### C JOBY #### [facility] [address] [place] [address] Dr. Trevor Nichols BAND % 6 % Critically high 0-5 [facility] Comment on above: Performed By: #### C JOBY #### [facility] [address] [place] [address] Dr. Trevor Nichols BASOM # 0.00 103/ul Normal 0.00-0.10 [facility] Comment on above: Performed By: #### C JOBY #### [facility] [address] [place] [address] Dr. Trevor Nichols BASOM % 0.0 % Critically low 0.2-2.0 [facility] Comment on above: Performed By: #### C JOBY #### [facility] [address] [place] [address] Dr. Trevor Nichols BLAST # Normal [facility] Comment on above: Performed By: #### C BCNADIA #### [facility] [address] [place] [address] Dr. Trevor Nichols BLAST % Normal [facility] Comment on above: Performed By: #### C BCNADIA #### [facility] [address] [place] [address] Dr. Trevor Nichols CORRECTED WBC Normal 4.0-11.0 [facility] Comment on above: Performed By: #### C JOBY #### [facility] [address] [place] [address] Dr. Trevor Nichols EOS # 0.04 103/ul Normal 0.00-0.70 [facility] Comment on above: Performed By: #### C JOBY #### [facility] [address] [place] [address] Dr. Trevor Nichols EOS% 1.0 % Normal 0.9-7.0 [facility] Comment on above: Performed By: #### C JOBY #### [facility] [address] [place] [address] Dr. Trevor Nichols HCT 36.4 % Critically low 42.0-54.0 [facility] Comment on above: Performed By: #### C JOBY #### [facility] [address] [place] [address] Dr. Trevor Nichols HGB 11.4 g/dl Critically low 14.0-18.0 [facility] Comment on above: Performed By: #### C JOBY #### [facility] [address] [place] [address] Dr. Trevor Nichols HYPOCHROMASIA SLIGHT Normal [facility] Comment on above: Performed By: #### C JOBY #### [facility] [address] [place] [address] Dr. Trevor Nichols LYMPHM # 1.19 103/ul Critically low 1.20-3.80 [facility] Comment on above: Performed By: #### C JOBY #### [facility] [address] [address] [address] Trevor Nichols LYMPHM% 27.0 % Normal 20.5-60.0 [facility] Comment on above: Performed By: #### C JOBY #### [facility] [address] [place] [address] Dr. Trevor Nichols MCH 32.5 pg Normal 25.9-34.0 [facility] Comment on above: Performed By: #### C JOBY #### [facility] [address] [address] [address] Trevor Nichols MCHC 31.3 g/dl Normal 29.9-35.2 [facility] Comment on above: Performed By: #### C JOBY #### [facility] [address] [place] [address] Dr. Trevor Nichols MCV 103.7 fL Critically high 80.0-94.0 [facility] Comment on above: Performed By: #### C JOBY #### [facility] [address] [place] [address] Dr. Trevor Nichols METAMYELOCYTE # Normal [facility] Comment on above: Performed By: #### C JOBY #### [facility] [address] [place] [address] Dr. Trevor Nichols METAMYELOCYTE % Normal [facility] Comment on above: Performed By: #### C JOBY #### [facility] [address] [place] [address] Dr. Trevor Nichols MONOM# 1.28 103/ul Critically high 0.30-0.80 [facility] Comment on above: Performed By: #### C JOBY #### [facility] [address] [place] [address] Dr. Trevor Nichols MONOM% 29.0 % Critically high 1.7-12.0 [facility] Comment on above: Performed By: #### C JOBY #### [facility] [address] [place] [address] Dr. Trevor iNchols MPV 10.5 fL Normal 9.5-13.5 [facility] Comment on above: Performed By: #### C BCMAN #### [facility] [address] [address] [address] Trevor Nichols MYELOCYTE # Normal [facility] Comment on above: Performed By: #### C BCNADIA #### [facility] [address] [place] [address] Dr. Trevor Nichols MYELOCYTE % Normal [facility] Comment on above: Performed By: #### C BCNADIA #### [facility] [address] [place] [address] Dr. Trevor Nichols NRBC Normal [facility] Comment on above: Performed By: #### C JOBY #### [facility] [address] [place] [address] Dr. Trevor Nichols PLT 161 103/ul Normal 150-450 [facility] Comment on above: Performed By: #### C JOBY #### [facility] [address] [place] [address] Dr. Trevor Nichols RBC 3.51 106/ul Critically low 4.70-6.10 [facility] Comment on above: Performed By: #### C JOBY #### [facility] [address] [place] [address] Dr. Trevor Nichols RDW 16.0 % Critically high 11.0-15.0 [facility] Comment on above: Performed By: #### C BCNADIA #### [facility] [address] [place] [address] Dr. Trevor Nichols SEG # 1.63 103/ul Normal 1.40-6.50 [facility] Comment on above: Performed By: #### C BCNADIA #### [facility] [address] [place] [address] Dr. Trevor Nichols SEG % 37.0 % Critically low 43.0-75.0 [facility] Comment on above: Performed By: #### C BCNADIA #### [facility] [address] [place] [address] Dr. Trevor Nichols WBC 4.4 103/ul Normal 4.0-11.0 [facility] Comment on above: Performed By: #### C BCMAN #### [facility] [address] [address] [address] Trevor Nichols PROF 14(COMP METB)on 022 Albumin [Mass/Vol] 3.4 g/dL Normal 3.4-5.0 [facility] Comment on above: Performed By: #### H STROPN, BNP, BMP #### [facility] [address] [address] [address] Trevor Nichols Albumin/Globulin [Mass ratio] 0.9 {ratio} Normal [facility] Comment on above: Performed By: #### H STROPN, BNP, BMP #### [facility] [address] [place] [address] Dr. Trevor Nichols ALP [Catalytic activity/Vol] 99 U/L Normal 46-116 [facility] Comment on above: Performed By: #### H STROPN, BNP, BMP #### [facility] [address] [address] [address] Trevor Nichols ALT [Catalytic activity/Vol] 18 U/L Normal 16-63 [facility] Comment on above: Performed By: #### H STROPN, BNP, BMP #### [facility] [address] [place] [address] Dr. Trevor Nichols Anion gap [Moles/Vol] 13.5 mmol/L Normal [facility] Comment on above: Performed By: #### H STROPN, BNP, BMP #### [facility] [address] [address] [address] Trevor Nichols AST [Catalytic activity/Vol] 10 U/L Critically low 15-37 [facility] Comment on above: Performed By: #### H STROPN, BNP, BMP #### [facility] [address] [place] [address] Dr. Trevor Nichols Bilirubin [Mass/Vol] 0.5 mg/dL Normal 0.2-1.0 [facility] Comment on above: Performed By: #### H STROPN, BNP, BMP #### [facility] [address] [place] [address] Dr. Trevor Nichols Calcium [Mass/Vol] 8.8 mg/dL Normal 8.5-10.1 [facility] Comment on above: Performed By: #### H STROPN, BNP, BMP #### [facility] [address] [address] [address] Trevor Nichols Chloride [Moles/Vol] 106 mmol/L Normal 98-107 [facility] Comment on above: Performed By: #### H STROPN, BNP, BMP #### [facility] [address] [address] [address] Trevor Nichols CO2 [Moles/Vol] 24.3 mmol/L Normal 21.0-32.0 [facility] Comment on above: Performed By: #### H STROPN, BNP, BMP #### [facility] [address] [place] [address] Dr. Trevor Nichols Creatinine [Mass/Vol] 1.35 mg/dL Critically high 0.70-1.30 [facility] Comment on above: Performed By: #### H STROPN, BNP, BMP #### [facility] [address] [place] [address] Dr. Trevor Nichols EGFR-AF BENINESE >60 Normal >=60 [facility] Comment on above: Performed By: #### H STROPN, BNP, BMP #### [facility] [address] [place] [address] Dr. Trevor Nichols EGFR-NON AF BENINESE 52 mL/min/1.73m2 Critically low >=60 [facility] Comment on above: Performed By: #### H STROPN, BNP, BMP #### [facility] [address] [address] [address] Trevor Nichols Globulin (S) [Mass/Vol] 3.8 g/dL Normal [facility] Comment on above: Performed By: #### H STROPN, BNP, BMP #### [facility] [address] [address] [address] Trevor Nichols Glucose [Mass/Vol] 103 mg/dL Normal 74-106 [facility] Comment on above: Performed By: #### H STROPN, BNP, BMP #### [facility] [address] [address] [address] Trevor Nichols Potassium [Moles/Vol] 3.8 mmol/L Normal 3.5-5.1 [facility] Comment on above: Performed By: #### H STROPN, BNP, BMP #### [facility] [address] [place] [address] Dr. Trevor Nichols Protein [Mass/Vol] 7.2 g/dL Normal 6.4-8.2 [facility] Comment on above: Performed By: #### H STROPN, BNP, BMP #### [facility] [address] [place] [address] Dr. Trevor Nichols Sodium [Moles/Vol] 140 mmol/L Normal 136-145 [facility] Comment on above: Performed By: #### H STROPN, BNP, BMP #### [facility] [address] [place] [address] Dr. Trevor Nichols Urea nitrogen [Mass/Vol] 22.0 mg/dL Critically high 7.0-18.0 [facility] Comment on above: Performed By: #### H STROPN, BNP, BMP #### [facility] [address] [place] [address] Dr. Trevor Nichols Urea nitrogen/Creatinine [Mass ratio] 16.3 mg/mg Normal [facility] Comment on above: Performed By: #### H STROPN, BNP, BMP #### [facility] [address] [place] [address] Dr. Trevor Nichols TSHon 02-05-2022 TSH 3.360 uIU/mL Normal 0.358-3.740 [facility] Comment on above: Performed By: #### H STROPN, BNP, BMP #### [facility] [address] [place] [address] Dr. Trevor Nichols XR CHEST 2 Von [...] by: ALLAN FLOREZ Date: 2022-02-05 17:03 Normal [facility] XR BONE SURVEYon 09-25-2021 XR BONE [...] by: SHAY BERNSTEIN Date: 2021-09-25 07:30 Normal [facility] PROTEIN ELECTROPHERESISon Albumin [Mass/Vol] 3.2 g/dL Normal 2.9-4.4 [facility] Comment on above: Performed By: #### P RTELEC ####[facility] [address] [place] [address]Dr. Trevor Nichols Albumin/Globulin [Mass ratio] 1.1 {ratio} Normal 0.7-1.7 [facility] Comment on above: Performed By: #### P RTELEC ####[facility] [address] [place] [address]Dr. Trevor Nichols Zxbtk-0-Hxkmwefo 0.3 g/dL Normal 0.0-0.4 [facility] Comment on above: Performed By: #### P RTELEC ####[facility] [address] [place], [place] [address]Dr. Trevor Nichols Avbgh-6-Hptiolxz 0.8 g/dL Normal 0.4-1.0 [facility] Comment on above: Performed By: #### P RTELEC ####[facility] [address] [place], [place] [address]Dr. Trevor Nichols Beta Globulin 1.0 g/dL Normal 0.7-1.3 [facility] Comment on above: Performed By: #### P RTELEC ####[facility] [address] [place], [place] [address]Dr. Trevor Nichols Gamma Globulin 0.8 g/dL Normal 0.4-1.8 [facility] Comment on above: Performed By: #### P RTELEC ####[facility] [address] [place] [address]Dr. Vivilan Nichols Globulin (S) [Mass/Vol] 2.9 g/dL Normal 2.2-3.9 [facility] Comment on above: Performed By: #### P RTELEC ####[facility] [address] [place] [address]Dr. Vivilan Nichols M-Jorge 0.1 g/dL Critically high Not Observed [facility] Comment on above: Performed By: #### P RTELEC ####[facility] [address] [place] [address]DrJeffery Nichols PDF . Normal [facility] Comment on above: Performed By: #### P RTELEC ####[facility] [address] [place] [address]Dr. Trevor Nichols Please note: Comment Normal [facility] Comment on above: Result Comment: Prot ein electrophoresis scan will follow via computer, mail, or show jumping instructor delivery. Performed By: #### P RTELEC ####[facility] [address] [place] [address]Dr. Trevor Nichols Protein [Mass/Vol] 6.1 g/dL Normal 6.0-8.5 [facility] Comment on above: Performed By: #### P RTELEC ####[facility] [address] [place] [address]DrJeffery Nichols PROF CHEM 8 (BAS METB)on Anion gap [Moles/Vol] 16.3 mmol/L Normal [facility] Comment on above: Performed By: #### H STROPN, BNP, BMP #### [facility] [address] [address] [address] Trevor Nichols Calcium [Mass/Vol] 9.1 mg/dL Normal 8.4-10.2 [facility] Comment on above: Performed By: #### H STROPN, BNP, BMP #### [facility] [address] [address] [address] Trevor Nichols Chloride [Moles/Vol] 104 mmol/L Normal 98-107 [facility] Comment on above: Performed By: #### H STROPN, BNP, BMP #### [facility] [address] [address] [address] Trevor Nichols CO2 [Moles/Vol] 23.3 mmol/L Normal 22.0-30.0 [facility] Comment on above: Performed By: #### H STROPN, BNP, BMP #### [facility] [address] [address] [address] Trevor Nichols Creatinine [Mass/Vol] 1.28 mg/dL Critically high 0.66-1.25 [facility] Comment on above: Performed By: #### H STROPN, BNP, BMP #### [facility] [address] [address] [address] Trevor Nichols EGFR-AF BENINESE >60 Normal >=60 [facility] Comment on above: Performed By: #### H STROPN, BNP, BMP #### [facility] [address] [place] [address] Dr. Trevor Nichols EGFR-NON AF BENINESE 55 mL/min/1.73m2 Critically low >=60 [facility] Comment on above: Performed By: #### H STROPN, BNP, BMP #### [facility] [address] [place] [address] Dr. Trevor Nichols Glucose [Mass/Vol] 98 mg/dL Normal 74-106 [facility] Comment on above: Performed By: #### H STROPN, BNP, BMP #### [facility] [address] [place] [address] Dr. Trevor Nichols Potassium [Moles/Vol] 3.6 mmol/L Normal 3.4-5.0 [facility] Comment on above: Performed By: #### H STROPN, BNP, BMP #### [facility] [address] [place] [address] Dr. Trevor Nichols Sodium [Moles/Vol] 140 mmol/L Normal 137-145 [facility] Comment on above: Performed By: #### H STROPN, BNP, BMP #### [facility] [address] [place] [address] Dr. Trevor Nichols Urea nitrogen [Mass/Vol] 25.0 mg/dL Critically high 9.0-20.0 [facility] Comment on above: Performed By: #### H STROPN, BNP, BMP #### [facility] [address] [place] [address] Dr. Trevor Nichols Urea nitrogen/Creatinine [Mass ratio] 19.5 mg/mg Normal [facility] Comment on above: Performed By: #### H STROPN, BNP, BMP #### [facility] [address] [place] [address] Dr. Trevor Nichols XR MODIFIED BARIUM SWALLOWon [...] by: SHAY BERNSTEIN Date: 2021-09-05 10:40 Normal [facility] CULTURE SPUTUMon 08-01-2021 CULTURE SPUTUM Isolate [...] Trimethoprim/Sulfamethoxaz ole <=20 S F Normal [facility] Comment on above: Performed By: #### H STROPN, BNP, BMP #### [facility] [address] [place], [place] [address] Dr. Trevor Nichols SPUTUM GRAM STAINon 07-30-20 21 COMMENTS Normal [facility] Comment on above: Performed By: #### S PUTGS ####[facility] [address] [place], [place] [address]Dr. Trevor Nichols DIPHTHEROIDS Normal [facility] Comment on above: Performed By: #### S PUTGS ####[facility] [address] [address]Dr. Trevor Nichols EPITHELIALS >25 Normal [facility] Comment on above: Performed By: #### S PUTGS ####[facility] [address] [address]Dr. Trevor Nichols FUNGAL ELEMENTS Normal [facility] Comment on above: Performed By: #### S PUTGS ####[facility] [address] [address]Dr. Trevor Nichols GRAM NEG BACILLI RARE Normal [facility] Comment on above: Performed By: #### S PUTGS ####[facility] [address] [place], [place] [address]Dr. Trevor Nichols GRAM NEG DIPPLOCOCCI Normal [facility] Comment on above: Performed By: #### S PUTGS ####[facility] [address] [place], [place] [address]Dr. Trevor Nichols GRAM POS BACILLI MANY Normal [facility] Comment on above: Performed By: #### S PUTGS ####[facility] [address] [place], [place] [address]Dr. Trevor Nichols GRAM POSITIVE COCCI MANY Normal [facility] Comment on above: Performed By: #### S PUTGS ####[facility] [address] [place], [place] [address]Dr. Trevor Nichols WBC (Bld) [#/Vol] 10*3/uL Normal [facility] Comment on above: Performed By: #### S PUTGS ####[facility] [address] [place], [place] [address]Dr. Trevor Nichols ECHOCARDIO M/2D COMPLETEon 1 09-24-2020 ECHOCARDIO M/2D COMPLETE Patient: CHIKI JUAREZ Exam Date: 07/24/2021 : 1945 Gender:M Ordering : [employer] Admission #: [id number] Family : DR WILL SHERWOOD . Order #: [id number] CLICK HERE TO VIEW EXAM ECHOCARDIOGRAM REPORT [...] M.D. on 07/24/2021 at 20:08 Normal [facility] CBC W MANUAL DIFFon -22-20 21 ATYPICAL LYMPH # Normal [facility] Comment on above: Performed By: #### H STROPN, BNP, BMP #### [facility] [address] [place] [address] Dr. Trevor Nichols ATYPICAL LYMPH % Normal [facility] Comment on above: Performed By: #### H STROPN, BNP, BMP #### [facility] [address] [place] [address] Dr. Trevor Nichols BAND # 0.1 103/ul Normal 0.0-0.3 [facility] Comment on above: Performed By: #### H STROPN, BNP, BMP #### [facility] [address] [place] [address] Dr. Trevor Nichols BAND % 2 % Normal 0-5 [facility] Comment on above: Performed By: #### H STROPN, BNP, BMP #### [facility] [address] [place] [address] Dr. Trevor Nichols BASOM # 0.00 103/ul Normal 0.00-0.10 [facility] Comment on above: Performed By: #### H STROPN, BNP, BMP #### [facility] [address] [place] [address] Dr. Trevro Nichols BASOM % 0.0 % Critically low 0.2-2.0 [facility] Comment on above: Performed By: #### H STROPN, BNP, BMP #### [facility] [address] [place] [address] Dr. Trevor Nichols BLAST # Normal [facility] Comment on above: Performed By: #### H STROPN, BNP, BMP #### [facility] [address] [place] [address] Dr. Trevor Nichols BLAST % Normal [facility] Comment on above: Performed By: #### H STROPN, BNP, BMP #### [facility] [address] [place] [address] Dr. Trevor Nichols CORRECTED WBC Normal 4.0-11.0 [facility] Comment on above: Performed By: #### H STROPN, BNP, BMP #### [facility] [address] [place] [address] Dr. Trevor Nichols EOS # 0.06 103/ul Normal 0.00-0.70 [facility] Comment on above: Performed By: #### H STROPN, BNP, BMP #### [facility] [address] [place], [place] [id number] Dr. Trevor Nichols EOS% 1.0 % Normal 0.9-7.0 [facility] Comment on above: Performed By: #### H STROPN, BNP, BMP #### [facility] [address] [address] [address] Trevor Nichols HCT 31.6 % Critically low 42.0-54.0 [facility] Comment on above: Performed By: #### H STROPN, BNP, BMP #### [facility] [address] [address] [address] Trevor Nichols HGB 9.7 g/dl Critically low 14.0-18.0 [facility] Comment on above: Performed By: #### H STROPN, BNP, BMP #### [facility] [address] [place] [address] Dr. Trevor Nichols LYMPHM # 0.46 103/ul Critically low 1.20-3.80 [facility] Comment on above: Performed By: #### H STROPN, BNP, BMP #### [facility] [address] [place] [address] Dr. Trevor Nichols LYMPHM% 8.0 % Critically low 20.5-60.0 [facility] Comment on above: Performed By: #### H STROPN, BNP, BMP #### [facility] [address] [place] [address] Dr. Trevor Nichols MACROCYTOSIS 1+ Normal [facility] Comment on above: Performed By: #### H STROPN, BNP, BMP #### [facility] [address] [place] [address] Dr. Trevor Nichols MCH 33.6 pg Normal 25.9-34.0 [facility] Comment on above: Performed By: #### H STROPN, BNP, BMP #### [facility] [address] [place] [address] Dr. Trevor Nichols MCHC 30.7 g/dl Normal 29.9-35.2 [facility] Comment on above: Performed By: #### H STROPN, BNP, BMP #### [facility] [address] [place] [address] Dr. Trevor Nichols MCV 109.3 fL Critically high 80.0-94.0 [facility] Comment on above: Performed By: #### H STROPN, BNP, BMP #### [facility] [address] [address] [address] Trevor Nichols METAMYELOCYTE # 0.1 103/ul Normal [facility] Comment on above: Performed By: #### H STROPN, BNP, BMP #### [facility] [address] [address] [address] Trevor Nichols METAMYELOCYTE % 2 % Normal [facility] Comment on above: Performed By: #### H STROPN, BNP, BMP #### [facility] [address] [place] [address] Dr. Trevor Nichols MONOM# 2.22 103/ul Critically high 0.30-0.80 [facility] Comment on above: Performed By: #### H STROPN, BNP, BMP #### [facility] [address] [place] [address] Dr. Trevor Nichols MONOM% 39.0 % Critically high 1.7-12.0 [facility] Comment on above: Performed By: #### H STROPN, BNP, BMP #### [facility] [address] [place] [address] Dr. Trevor Nichols MPV 9.4 fL Critically low 9.5-13.5 [facility] Comment on above: Performed By: #### H STROPN, BNP, BMP #### [facility] [address] [place] [address] Dr. Trevor Nichols MYELOCYTE # 0.3 103/ul Normal [facility] Comment on above: Performed By: #### H STROPN, BNP, BMP #### [facility] [address] [place] [address] Dr. Trevor Nichols MYELOCYTE % 6 % Normal [facility] Comment on above: Performed By: #### H STROPN, BNP, BMP #### [facility] [address] [place] [address] Dr. Trevor Nichols NRBC Normal [facility] Comment on above: Performed By: #### H STROPN, BNP, BMP #### [facility] [address] [address] [address] Trevor Nichols PLT 202 103/ul Normal 150-450 [facility] Comment on above: Performed By: #### H STROPN, BNP, BMP #### [facility] [address] [place], [place] [address] Dr. Trevor Nichols RBC 2.89 106/ul Critically low 4.70-6.10 [facility] Comment on above: Performed By: #### H STROPN, BNP, BMP #### [facility] [address] [address] [address] Trevor Nichols RDW 15.4 % Critically high 11.0-15.0 [facility] Comment on above: Performed By: #### H STROPN, BNP, BMP #### [facility] [address] [address] [address] Trevor Nichols SEG # 2.39 103/ul Normal 1.40-6.50 [facility] Comment on above: Performed By: #### H STROPN, BNP, BMP #### [facility] [address] [address] [address] Trevor Nichols SEG % 42.0 % Critically low 43.0-75.0 [facility] Comment on above: Performed By: #### H STROPN, BNP, BMP #### [facility] [address] [address] [address] Trevor Nichols WBC 5.7 103/ul Normal 4.0-11.0 [facility] Comment on above: Performed By: #### H STROPN, BNP, BMP #### [facility] [address] [address] [address] Trevor Nichols PROF CHEM 8 (BAS METB)on Anion gap [Moles/Vol] 13.1 mmol/L Normal [facility] Comment on above: Performed By: #### B MP ####[facility] [address] [address]Dr. Trevor Nichols Calcium [Mass/Vol] 8.8 mg/dL Normal 8.4-10.2 [facility] Comment on above: Performed By: #### B MP ####[facility] [address] [address]Dr. Trevor Simoen Chloride [Moles/Vol] 104 mmol/L Normal 98-107 [facility] Comment on above: Performed By: #### B MP ####[facility] [address] [address]Dr. Vivifrancie Simone CO2 [Moles/Vol] 24.1 mmol/L Normal 22.0-30.0 [facility] Comment on above: Performed By: #### B MP ####[facility] [address] [place], [place] [address]Dr. Vivifrancie Simone Creatinine [Mass/Vol] 1.26 mg/dL Critically high 0.66-1.25 [facility] Comment on above: Performed By: #### B MP ####[facility] [address] [place], [place] [address]Dr. Vivifrancie Simone EGFR-AF BENINESE >60 Normal >=60 [facility] Comment on above: Performed By: #### B MP ####[facility] [address] [place], [place] [address]Dr. Vivifrancie Simone EGFR-NON AF BENINESE 56 mL/min/1.73m2 Critically low >=60 [facility] Comment on above: Performed By: #### B MP ####[facility] [address] [place], [place] [address]Dr. Trevor Nichols Glucose [Mass/Vol] 98 mg/dL Normal 74-106 [facility] Comment on above: Performed By: #### B MP ####[facility] [address] [place], [place] [address]Dr. Trevor Nichols Potassium [Moles/Vol] 4.2 mmol/L Normal 3.4-5.0 [facility] Comment on above: Performed By: #### B MP ####[facility] [address] [place], [place] [address]Dr. Trevor Nichols Sodium [Moles/Vol] 137 mmol/L Normal 137-145 [facility] Comment on above: Performed By: #### B MP ####[facility] [address] [address]Dr. Trevor Simone Urea nitrogen [Mass/Vol] 20.0 mg/dL Normal 9.0-20.0 [facility] Comment on above: Performed By: #### B MP ####[facility] [address] [place], [place] [address]Dr. Trevor Nichols Urea nitrogen/Creatinine [Mass ratio] 15.9 mg/mg Normal [facility] Comment on above: Performed By: #### B MP ####[facility] [address] [place], [place] [address]Dr. Vivifrancie Nichols CBC AUTO DIFFon 05-16-2021 BASO # 0.0 103/ul Normal 0.0-0.1 [facility] Comment on above: Performed By: #### C BC ####[facility] [address] [place], [place] [address]Dr. Trevor Nichols Basophils/100 WBC (Bld) 0.2 % Normal 0.2-2.0 [facility] Comment on above: Performed By: #### C BC ####[facility] [address] [place], [place] [address]Dr. Trevor Nichols EO # 0.0 103/ul Normal 0.0-0.7 [facility] Comment on above: Performed By: #### C BC ####[facility] [address] [place], [place] [address]Dr. Trevor Nichols Eosinophils/100 WBC (Bld) 0.0 % Critically low 0.9-7.0 [facility] Comment on above: Performed By: #### C BC ####[facility] [address] [place], [place] [address]Dr. Trevor Nichols Erythrocyte distribution width (RBC) [Ratio] 15.1 % Critically high 11.0-15.0 [facility] Comment on above: Performed By: #### C BC ####[facility] [address] [place], [place] [address]Dr. Trevor Nichols Hematocrit (Bld) [Volume fraction] 32.9 % Critically low 42.0-54.0 [facility] Comment on above: Performed By: #### C BC ####[facility] [address] [address]DrJeffery Nichols Hemoglobin (Bld) [Mass/Vol] 10.5 g/dL Critically low 14.0-18.0 [facility] Comment on above: Performed By: #### C BC ####[facility] [address] [place], [place] [address]DrJeffery Nichols IG # 0.29 10e3/ul Critically high 0.00-0.03 [facility] Comment on above: Performed By: #### C BC ####[facility] [address] [place], [place] [address]DrJeffery Nichols IG % 6.5 % Critically high 0.0-0.5 [facility] Comment on above: Performed By: #### C BC ####[facility] [address] [place], [place] [address]DrJeffery Nichols LYMPH # 0.2 103/ul Critically low 1.2-3.8 [facility] Comment on above: Performed By: #### C BC ####[facility] [address] [place], [place] [address]DrJeffery Nichols Lymphocytes/100 WBC (Bld) 5.4 % Critically low 20.5-60.0 [facility] Comment on above: Performed By: #### C BC ####[facility] [address] [place], [place] [address]DrJeffery Nichols MANUAL DIFF REQ NO Normal [facility] Comment on above: Performed By: #### C BC ####[facility] [address] [place], [place] [address]DrJeffery Nichols MCH (RBC) [Entitic mass] 33.8 pg Normal 25.9-34.0 [facility] Comment on above: Performed By: #### C BC ####[facility] [address] [place], [place] [address]DrJeffery Nichols MCHC (RBC) [Mass/Vol] 31.9 g/dL Normal 29.9-35.2 [facility] Comment on above: Performed By: #### C BC ####[facility] [address] [address]DrJeffery Nichols MCV (RBC) [Entitic vol] 105.8 fL Critically high 80.0-94.0 [facility] Comment on above: Performed By: #### C BC ####[facility] [address] [place], [place] [address]DrJeffery Nichols MONO # 0.3 103/ul Normal 0.3-0.8 [facility] Comment on above: Performed By: #### C BC ####[facility] [address] [place], [place] [address]DrJeffery Nichols Monocytes/100 WBC (Bld) 7.6 % Normal 1.7-12.0 [facility] Comment on above: Performed By: #### C BC ####[facility] [address] [place], [place] [address]DrJeffery Nichols NEUT # 3.6 103/ul Normal 1.4-6.5 [facility] Comment on above: Performed By: #### C BC ####[facility] [address] [place], [place] [address]DrJeffery Nichols Neutrophils/100 WBC (Bld) 80.3 % Critically high 43.0-75.0 [facility] Comment on above: Performed By: #### C BC ####[facility] [address] [place], [place] [address]DrJeffery Nichols Platelet mean volume (Bld) [Entitic vol] 10.2 fL Normal 9.5-13.5 [facility] Comment on above: Performed By: #### C BC ####[facility] [address] [place], [place] [address]DrJeffery Nichols PLT 192 103/ul Normal 150-450 [facility] Comment on above: Performed By: #### C BC ####[facility] [address] [place], [place] [address]DrJeffery Nichols RBC 3.11 106/ul Critically low 4.70-6.10 [facility] Comment on above: Performed By: #### C BC ####[facility] [address] [place], [place] [address]MaJeffery Nichols WBC 4.5 103/ul Normal 4.0-11.0 [facility] Comment on above: Performed By: #### C BC ####[facility] [address] [place], [place] [address] STROKE HEAD WOon 05-16-20 21 [...] SHAY BERNSTEIN Date: 2021-05-16 14:45 Normal [facility] CTA NECK WO W CONon [...] SHAY BERNSTEIN Date: 2021-05-16 16:53 Normal [facility] IRON AND TIBCon 05-16-2021 % SATURATION 16.2 % Normal [facility] Comment on above: Performed By: #### F ETIBC, B12FOL #### [facility] [address] [address] [address] Trevor Nichols Iron [Mass/Vol] 32.0 ug/dL Critically low 49.0-181.0 [facility] Comment on above: Performed By: #### F ETIBC, B12FOL #### [facility] [address] [address] [address] Trevor Nichols TIBC DIRECT 198.0 ug/dL Critically low 261.0-497.0 [facility] Comment on above: Performed By: #### F ETIBC, B12FOL #### [facility] [address] [address] [address] Trevor Nichols PROF CHEM 8 (BAS METB)on Anion gap [Moles/Vol] 14.9 mmol/L Normal [facility] Comment on above: Performed By: #### B MP #### [facility] [address] [address] [address] Trevor Nichols Calcium [Mass/Vol] 9.2 mg/dL Normal 8.4-10.2 [facility] Comment on above: Performed By: #### B MP #### [facility] [address] [address] [address] Trevor Nichols Chloride [Moles/Vol] 105 mmol/L Normal 98-107 [facility] Comment on above: Performed By: #### B MP #### [facility] [address] [place] [address] Dr. Trevor Nichols CO2 [Moles/Vol] 21.6 mmol/L Critically low 22.0-30.0 [facility] Comment on above: Performed By: #### B MP #### [facility] [address] [place] [address] Dr. Trevor Nichols Creatinine [Mass/Vol] 1.36 mg/dL Critically high 0.66-1.25 [facility] Comment on above: Performed By: #### B MP #### [facility] [address] [place] [address] Dr. Trevor Nichols EGFR-AF BENINESE >60 Normal >=60 [facility] Comment on above: Performed By: #### B MP #### [facility] [address] [place] [address] Dr. Trevor Nichols EGFR-NON AF BENINESE 51 mL/min/1.73m2 Critically low >=60 [facility] Comment on above: Performed By: #### B MP #### [facility] [address] [address] [address] Trevor Nichols Glucose [Mass/Vol] 206 mg/dL Critically high 74-106 [facility] Comment on above: Performed By: #### B MP #### [facility] [address] [place] [address] Dr. Trevor Nichols Potassium [Moles/Vol] 4.5 mmol/L Normal 3.4-5.0 [facility] Comment on above: Performed By: #### B MP #### [facility] [address] [place] [address] Dr. Trevor Nichols Sodium [Moles/Vol] 137 mmol/L Normal 137-145 [facility] Comment on above: Performed By: #### B MP #### [facility] [address] [place] [address] Dr. Trevor Nichols Urea nitrogen [Mass/Vol] 26.0 mg/dL Critically high 9.0-20.0 [facility] Comment on above: Performed By: #### B MP #### [facility] [address] [place] [address] Dr. Trevor Nichols Urea nitrogen/Creatinine [Mass ratio] 19.1 mg/mg Normal [facility] Comment on above: Performed By: #### B MP #### [facility] [address] [place] [address] Dr. Trevor Nichols VIT B12 AND FOLATEon 021 Cobalamin (Vitamin B12) [Mass/Vol] pg/mL Critically high 239.0-931.0 [facility] Comment on above: Performed By: #### F ETIBC, B12FOL #### [facility] [address] [place] [address] Dr. Trevor Nichols FOLATE 15.40 ng/mL Normal >=2.76 [facility] Comment on above: Performed By: #### F ETIBC, B12FOL #### [facility] [address] [place] [address] Dr. Trevor Nichols BNPon 05-15-2021 Natriuretic peptide B (Bld) [Mass/Vol] 379.0 pg/mL Normal <=900.0 [facility] Comment on above: Performed By: #### H STROPN, BNP, BMP #### [facility] [address] [place] [address] Dr. Trevor Nichols CBC W MANUAL DIFFon 05-15-20 21 ATYPICAL LYMPH # Normal [facility] Comment on above: Performed By: #### H STROPN, BNP, BMP #### [facility] [address] [place] [address] Dr. Trevor Nichols ATYPICAL LYMPH % Normal [facility] Comment on above: Performed By: #### H STROPN, BNP, BMP #### [facility] [address] [address] [address] Trevor Nichols BAND # 0.0 103/ul Normal 0.0-0.3 [facility] Comment on above: Performed By: #### H STROPN, BNP, BMP #### [facility] [address] [address] [address] Trevor Nichols BAND % 1 % Normal 0-5 [facility] Comment on above: Performed By: #### H STROPN, BNP, BMP #### [facility] [address] [place] [address] Dr. Trevor Nichols BASOM # 0.00 103/ul Normal 0.00-0.10 [facility] Comment on above: Performed By: #### H STROPN, BNP, BMP #### [facility] [address] [place] [address] Dr. Trevor Nichols BASOM % 0.0 % Critically low 0.2-2.0 [facility] Comment on above: Performed By: #### H STROPN, BNP, BMP #### [facility] [address] [place] [address] Dr. Trevor Nichols BLAST # Normal [facility] Comment on above: Performed By: #### H STROPN, BNP, BMP #### [facility] [address] [place] [address] Dr. Trevor Nichols BLAST % Normal [facility] Comment on above: Performed By: #### H STROPN, BNP, BMP #### [facility] [address] [place] [address] Dr. Trevor Nichols BRENDA CELLS SLIGHT Normal [facility] Comment on above: Performed By: #### H STROPN, BNP, BMP #### [facility] [address] [place] [address] Dr. Trevor Nichols CORRECTED WBC Normal 4.0-11.0 [facility] Comment on above: Performed By: #### H STROPN, BNP, BMP #### [facility] [address] [address] [address] Trevor Nichols EOS # 0.05 103/ul Normal 0.00-0.70 [facility] Comment on above: Performed By: #### H STROPN, BNP, BMP #### [facility] [address] [address] [address] Trevor Nichols EOS% 1.0 % Normal 0.9-7.0 [facility] Comment on above: Performed By: #### H STROPN, BNP, BMP #### [facility] [address] [address] [address] Trevor Nichols HCT 32.5 % Critically low 42.0-54.0 [facility] Comment on above: Performed By: #### H STROPN, BNP, BMP #### [facility] [address] [address] [address] Trevor Nichols HGB 10.5 g/dl Critically low 14.0-18.0 [facility] Comment on above: Performed By: #### H STROPN, BNP, BMP #### [facility] [address] [address] [address] Trevor Nichols HYPOCHROMASIA 2+ Normal [facility] Comment on above: Performed By: #### H STROPN, BNP, BMP #### [facility] [address] [address] [address] Trevor Nichols LYMPHM # 1.03 103/ul Critically low 1.20-3.80 [facility] Comment on above: Performed By: #### H STROPN, BNP, BMP #### [facility] [address] [address] [address] Trevor Nichols LYMPHM% 22.0 % Normal 20.5-60.0 [facility] Comment on above: Performed By: #### H STROPN, BNP, BMP #### [facility] [address] [address] [address] Trevor Nichols MACROCYTOSIS 2+ Normal [facility] Comment on above: Performed By: #### H STROPN, BNP, BMP #### [facility] [address] [address] [address] Trevor Nichols MCH 34.5 pg Critically high 25.9-34.0 [facility] Comment on above: Performed By: #### H STROPN, BNP, BMP #### [facility] [address] [address] [address] Trevor Nichols MCHC 32.3 g/dl Normal 29.9-35.2 [facility] Comment on above: Performed By: #### H STROPN, BNP, BMP #### [facility] [address] [address] [address] Trevor Nichols MCV 106.9 fL Critically high 80.0-94.0 [facility] Comment on above: Performed By: #### H STROPN, BNP, BMP #### [facility] [address] [address] [address] Trevor Nichols METAMYELOCYTE # Normal [facility] Comment on above: Performed By: #### H STROPN, BNP, BMP #### [facility] [address] [address] [address] Trevor Nichols METAMYELOCYTE % Normal [facility] Comment on above: Performed By: #### H STROPN, BNP, BMP #### [facility] [address] [address] [address] Trevor Nichols MONOM# 1.74 103/ul Critically high 0.30-0.80 [facility] Comment on above: Performed By: #### H STROPN, BNP, BMP #### [facility] [address] [address] [address] Trevor Nichols MONOM% 37.0 % Critically high 1.7-12.0 [facility] Comment on above: Performed By: #### H STROPN, BNP, BMP #### [facility] [address] [address] [address] Trevor Nichols MPV 10.8 fL Normal 9.5-13.5 [facility] Comment on above: Performed By: #### H STROPN, BNP, BMP #### [facility] [address] [address] [address] Trevor Nichols MYELOCYTE # Normal [facility] Comment on above: Performed By: #### H STROPN, BNP, BMP #### [facility] [address] [address] [address] Trevor Nichols MYELOCYTE % Normal [facility] Comment on above: Performed By: #### H STROPN, BNP, BMP #### [facility] [address] [address] [address] Trevor Nichols NRBC Normal [facility] Comment on above: Performed By: #### H STROPN, BNP, BMP #### [facility] [address] [address] [address] Trevor Nichols PLT 222 103/ul Normal 150-450 [facility] Comment on above: Performed By: #### H STROPN, BNP, BMP #### [facility] [address] [place] [address] Dr. Trevor Nichols POIKILOCYTOSIS 2+ Normal [facility] Comment on above: Performed By: #### H STROPN, BNP, BMP #### [facility] [address] [place] [address] Dr. Trevor Nichols RBC 3.04 106/ul Critically low 4.70-6.10 [facility] Comment on above: Performed By: #### H STROPN, BNP, BMP #### [facility] [address] [place] [address] Dr. Trevor Nichols RDW 15.6 % Critically high 11.0-15.0 [facility] Comment on above: Performed By: #### H STROPN, BNP, BMP #### [facility] [address] [place] [address] Dr. Trevor Nichols SEG # 1.83 103/ul Normal 1.40-6.50 [facility] Comment on above: Performed By: #### H STROPN, BNP, BMP #### [facility] [address] [address] [address] Trevor Nichols SEG % 39.0 % Critically low 43.0-75.0 [facility] Comment on above: Performed By: #### H STROPN, BNP, BMP #### [facility] [address] [address] [address] Trevor Nichols TARGET CELLS 1+ Normal [facility] Comment on above: Performed By: #### H STROPN, BNP, BMP #### [facility] [address] [address] [address] Trevor Nichols TEAR DROP CELLS SLIGHT Normal [facility] Comment on above: Performed By: #### H STROPN, BNP, BMP #### [facility] [address] [address] [address] Trevor Nichols WBC 4.7 103/ul Normal 4.0-11.0 [facility] Comment on above: Performed By: #### H STROPN, BNP, BMP #### [facility] [address] [address] [address] Trevor Nichols CTA CHEST WO W [...] RAY SAWANT Date: 2021-05-15 11:15 Normal [facility] CULTURE BLOODon 05-15-2021 Microscopic examination of blood, culture Culture Observations: No growth at 5 days. Normal [facility] [facility] Comment [facility]: Performed By: #### H CHASITY BNP, BMP #### [facility] [address] [address] [address] Trevor Nichols Covid-19 PCR (CVDTB)on 04-18 SARS-CoV-2 (COVID-19) RNA DEVIN+probe Ql (Unsp spec) Not detected Normal NOT DETECTED [facility] Comment on above: Result Comment: When diagnostic testing is negative, the possibility of a false negative should be considered in the context of a patient's recent exposures and the presence of clinical signs and symptoms consistent with SARS-CoV-2. This test is not yet approved or cleared by the [place] Food and Drug Administration (FDA). This test was developed by [employer], [place], [place]. The performance characteristics of this test were validated by [facility]. The results are not intended to be used as the sole means for clinical diagnosis or patient management decisions. [facility] is authorized under Clinical Laboratory Improvement Amendments (CLIA) to perform high- complexity testing. Performed By: #### H CHASITY BNP, BMP #### [facility] [address] [address] [address] Trevor Nichols FREE T3on 05-15-2021 FREE T3 1.66 pg/mlL Critically low 2.77-5.27 [facility] Comment on above: Performed By: #### T SH, FT3 ####[facility] [address] [address]DrJeffery Nichols FREE T4on 05-15-2021 Free T4 [Mass/Vol] 1.06 ng/dL Normal 0.78-2.19 [facility] Comment on above: Performed By: #### F T4 ####[facility] [address] [address]DrJeffery Nichols LACTATE/LACTIC ACIDon 2020 Lactate [Moles/Vol] 1.2 mmol/L Normal 0.7-2.0 [facility] Comment on above: Performed By: #### L ACT ####[facility] [address] [address]Dr. Trevor Nichols Lactate [Moles/Vol] 1.5 mmol/L Normal 0.7-2.0 [facility] Comment on above: Performed By: #### L ACT ####[facility] [address] [address]Dr. Trevor Nichols PROF CHEM 8 (BAS METB)on Anion gap [Moles/Vol] 12.5 mmol/L Normal [facility] Comment on above: Performed By: #### H STROPN, BNP, BMP #### [facility] [address] [address] [address] Trevor Nichols Calcium [Mass/Vol] 8.4 mg/dL Normal 8.4-10.2 [facility] Comment on above: Performed By: #### H STROPN, BNP, BMP #### [facility] [address] [address] [address] Trevor Nichols Chloride [Moles/Vol] 106 mmol/L Normal 98-107 [facility] Comment on above: Performed By: #### H STROPN, BNP, BMP #### [facility] [address] [address] [address] Trevor Nichols CO2 [Moles/Vol] 24.8 mmol/L Normal 22.0-30.0 [facility] Comment on above: Performed By: #### H STROPN, BNP, BMP #### [facility] [address] [address] [address] Trevor Nichols Creatinine [Mass/Vol] 1.37 mg/dL Critically high 0.66-1.25 [facility] Comment on above: Performed By: #### H STROPN, BNP, BMP #### [facility] [address] [address] [address] Trevor Nichols EGFR-AF BENINESE >60 Normal >=60 [facility] Comment on above: Performed By: #### H STROPN, BNP, BMP #### [facility] [address] [address] [address] Trevor Nichols EGFR-NON AF BENINESE 51 mL/min/1.73m2 Critically low >=60 [facility] Comment on above: Performed By: #### H STROPN, BNP, BMP #### [facility] [address] [address] [address] Trevor Nichols Glucose [Mass/Vol] 114 mg/dL Critically high 74-106 [facility] Comment on above: Performed By: #### H STROPN, BNP, BMP #### [facility] [address] [address] [address] Trevor Nichols Potassium [Moles/Vol] 4.4 mmol/L Normal 3.4-5.0 [facility] Comment on above: Performed By: #### H STROPN, BNP, BMP #### [facility] [address] [address] [address] Trevor Nichols Sodium [Moles/Vol] 139 mmol/L Normal 137-145 [facility] Comment on above: Performed By: #### H STROPN, BNP, BMP #### [facility] [address] [address] [address] Trevor Nichols Urea nitrogen [Mass/Vol] 20.0 mg/dL Normal 9.0-20.0 [facility] Comment on above: Performed By: #### H STROPN, BNP, BMP #### [facility] [address] [address] [address] Trevor Nichols Urea nitrogen/Creatinine [Mass ratio] 14.6 mg/mg Normal [facility] Comment on above: Performed By: #### H STROPN, BNP, BMP #### [facility] [address] [address] [address] Trevor Nichols TROPONIN, HIGH SENSITIVITYon 05-15-2021 HSTROP 7.1 pg/mL Normal 4.0-42.2 [facility] Comment on above: Result Comment: CUT- OFF POINTS HAVE BEEN ESTABLISHED BASED ON THE FOURTH UNIVERSAL DEFINITIONS OF MYOCARDIAL INFARCTION. THE UPPER REFERENCE LIMIT (URL) OF TROPONIN, DEFINED THE 99TH PERCENTILE OF cTnI DISTRIBUTION IN A REFERENCE POPULATION, HAS BEEN CONFIRMED THE DECISION THRESHOLD FOR [place] DIAGNOSIS. Performed By: #### H STROPN, BNP, BMP #### [facility] [address] [address] [address] Trevor Nichols TSHon 05-15-2021 TSH 1.972 uIU/mL Normal 0.470-4.680 [facility] Comment on above: Performed By: #### T SH, FT3 ####[facility] [address] [id number]. Trevor Nichols TSH RANGE SEE BELOW Normal [facility] Comment on above: Result Comment: <0.3 4 UIU/ml HYPERTHYROID 0.34-5.60 UIU/ml EUTHYROID >5.60 UIU/ml HYPOTHYROID Performed By: #### T SH, FT3 ####[facility] [address] [address]Dr. Trevor Nichols D-DIMERon 05-14-2021 D-DIMER 0.76 mg/L FEU Critically high 0.19-0.50 [facility] Comment on above: Performed By: #### H STROPN, BNP, BMP #### [facility] [address] [address] [address] Trevor Nichols D-DIMER COMMENTS SEE BELOW Normal [facility] Comment on above: Result Comment: Incr [...] By: #### H STROPN, BNP, BMP #### [facility] [address] [address] [address] Trevor Nichols PROF CHEM 8 (BAS METB)on Anion gap [Moles/Vol] 12.0 mmol/L Normal [facility] Comment on above: Performed By: #### H STROPN, BNP, BMP #### [facility] [address] [address] [address] Trevor Nichols Calcium [Mass/Vol] 8.5 mg/dL Normal 8.4-10.2 [facility] Comment on above: Performed By: #### H STROPN, BNP, BMP #### [facility] [address] [address] [address] Trevor Nichols Chloride [Moles/Vol] 106 mmol/L Normal 98-107 [facility] Comment on above: Performed By: #### H STROPN, BNP, BMP #### [facility] [address] [place] [address] Dr. Trevor Nichols CO2 [Moles/Vol] 25.0 mmol/L Normal 22.0-30.0 [facility] Comment on above: Performed By: #### H STROPN, BNP, BMP #### [facility] [address] [place] [address] Dr. Trevor Nichols Creatinine [Mass/Vol] 1.61 mg/dL Critically high 0.66-1.25 [facility] Comment on above: Performed By: #### H STROPN, BNP, BMP #### [facility] [address] [place] [address] Dr. Trevor Nichols EGFR-AF BENINESE 51 mL/min/1.73m2 Critically low >=60 [facility] Comment on above: Performed By: #### H STROPN, BNP, BMP #### [facility] [address] [place] [address] Dr. Trevor Nichols EGFR-NON AF BENINESE 42 mL/min/1.73m2 Critically low >=60 [facility] Comment on above: Performed By: #### H STROPN, BNP, BMP #### [facility] [address] [address] [address] Trevor Nichols Glucose [Mass/Vol] 115 mg/dL Critically high 74-106 [facility] Comment on above: Performed By: #### H STROPN, BNP, BMP #### [facility] [address] [address] [address] Trevor Nichols Potassium [Moles/Vol] 4.0 mmol/L Normal 3.4-5.0 [facility] Comment on above: Performed By: #### H STROPN, BNP, BMP #### [facility] [address] [address] [address] Trevor Nichols Sodium [Moles/Vol] 139 mmol/L Normal 137-145 [facility] Comment on above: Performed By: #### H STROPN, BNP, BMP #### [facility] [address] [address] [address] Trevor Nichols Urea nitrogen [Mass/Vol] 20.0 mg/dL Normal 9.0-20.0 [facility] Comment on above: Performed By: #### H STROPN, BNP, BMP #### [facility] [address] [address] [address] Trevor Nichols Urea nitrogen/Creatinine [Mass ratio] 12.4 mg/mg Normal [facility] Comment on above: Performed By: #### H CHASITY, BNP, BMP #### [facility] [address] [address] [address] Trevor Nichols PROF CHEM 8 (BAS METB)on Anion gap [Moles/Vol] 19.5 mmol/L Normal [facility] Comment on above: Performed By: #### B MP ####[facility] [address] [address]DrJeffery Nichols Calcium [Mass/Vol] 9.1 mg/dL Normal 8.4-10.2 [facility] Comment on above: Performed By: #### B MP ####[facility] [address] [address]Dr. Trevor Nichols Chloride [Moles/Vol] 104 mmol/L Normal 98-107 [facility] Comment on above: Performed By: #### B MP ####[facility] [address] [address]DrJeffery Nichols CO2 [Moles/Vol] 19.6 mmol/L Critically low 22.0-30.0 [facility] Comment on above: Performed By: #### B MP ####[facility] [address] [id number]. Trevor Nichols Creatinine [Mass/Vol] 1.69 mg/dL Critically high 0.66-1.25 [facility] Comment on above: Performed By: #### B MP ####[facility] [address] [address]Dr. Trevor Nichols EGFR-AF BENINESE 48 mL/min/1.73m2 Critically low >=60 [facility] Comment on above: Performed By: #### B MP ####[facility] [address] [address]Dr. Trevor Nichols EGFR-NON AF BENINESE 40 mL/min/1.73m2 Critically low >=60 [facility] Comment on above: Performed By: #### B MP ####[facility] [address] [place], [place] [address]Dr. Trevor Nichols Glucose [Mass/Vol] 95 mg/dL Normal 74-106 [facility] Comment on above: Performed By: #### B MP ####[facility] [address] [id number]. Trevor Nichols Potassium [Moles/Vol] 5.4 mmol/L Critically high 3.4-5.0 [facility] Comment on above: Performed By: #### B MP ####[facility] [address] [place], [place] [address]Dr. Trevor Nichols Sodium [Moles/Vol] 138 mmol/L Normal 137-145 [facility] Comment on above: Performed By: #### B MP ####[facility] [address] [id number]. Trevor Nichols Urea nitrogen [Mass/Vol] 26.0 mg/dL Critically high 9.0-20.0 [facility] Comment on above: Performed By: #### B MP ####[facility] Ent[address] [place], [place] [address]Dr. Trevor Simone Urea nitrogen/Creatinine [Mass ratio] 15.4 mg/mg Normal [facility] Comment on above: Performed By: #### B MP ####[facility] [address]ks[address] [place], [place] [address]Dr. Trevor Nichols BNPon 04-29-2021 Natriuretic peptide B (Bld) [Mass/Vol] 421.0 pg/mL Normal <=900.0 [facility] Comment on above: Performed By: #### B BANQUET SERVER, MG ####[facility] [address] [place] [address] [place] CBC W MANUAL DIFFon 04-29-20 21 ATYPICAL LYMPH # 0.19 103/ul Normal [facility] Comment on above: Performed By: #### C JOBY ####[facility] By[address] [place] [address] [place]#### PERSMR ####[facility] Abjjagxdiz[address] [place], [place] [address]Dr. Trevor Nichols ATYPICAL LYMPH % 4 % Normal [facility] Comment on above: Performed By: #### C JOBY ####[facility] Aqufjhrl[address] [place] [address] [place]#### PERSMR ####[facility] Vateqlruaq[address] [place], [place] [address]Dr. Trevor Nichols BAND # 0.2 103/ul Normal 0.0-0.3 [facility] Comment on above: Performed By: #### C JOBY ####[facility] [address] [place] [address] [place]#### PERSMR ####[facility] Cvbskpmsnr[address] [place], [place] [address]Dr. Yilan Nichols BAND % 5 % Normal 0-5 [facility] Comment on above: Performed By: #### C JOBY ####[facility] [address]fuj[address] [place] [address] [place]#### PERSMR ####[facility] Wixqpekvjq[address] [place], [place] [address]Dr. Trevor Nichols BASOM # 0.05 103/ul Normal 0.00-0.10 [facility] Comment on above: Performed By: #### C JOBY ####[facility] [address] [place], [place] [address] [place]#### PERSMR ####[facility] [address] [address]Dr. Trevor Nichols BASOM % 1.0 % Normal 0.2-2.0 [facility] Comment on above: Performed By: #### C JOBY ####[facility] [address] [place] [address] [place]#### PERSMR ####[facility] [address] [address]Dr. Trevor Nichols BLAST # Normal [facility] Comment on above: Performed By: #### C JOBY ####[facility] V[address] [place] [address] [place]#### PERSMR ####[facility] Wvhdgiiwce[address] [place], [place] [address]Dr. Trevor Nichols BLAST % Normal [facility] Comment on above: Performed By: #### C JOBY ####[facility] [address]dr[address] [place] [address] [place]#### PERSMR ####[facility] T[address]ksvcveq[address] [place], [place] [address]Dr. Trevor Nichols CORRECTED WBC Normal 4.0-11.0 [facility] Comment on above: Performed By: #### C JOBY ####[facility] [address]iilfdag[address] [place] [address] [place]#### PERSMR ####[facility] Y[address]qbvlpoc[address] [place], [place] [address]Dr. Trevor Nichols EOS # 0.00 103/ul Normal 0.00-0.70 [facility] Comment on above: Performed By: #### C JOBY ####[facility] N[address] [place] [address] [place]#### PERSMR ####[facility] Dqsivurdjv[address] [place], [place] [address]Dr. Trevor Nichols EOS% 0.0 % Critically low 0.9-7.0 [facility] Comment on above: Performed By: #### C JOBY ####[facility] [address]ksr[address] [place] [address] [place]#### PERSMR ####[facility] Wcxkbjchah[address] [place], [place] [address]Dr. Trevor Nichols HCT 35.7 % Critically low 42.0-54.0 [facility] Comment on above: Performed By: #### C JOBY ####[facility] [address]sezcaso[address] [place] [address] [place]#### PERSMR ####[facility] K[address]plq[address] [place], [place] [address]Dr. Trevor Nichols HGB 11.7 g/dl Critically low 14.0-18.0 [facility] Comment on above: Performed By: #### Brodie HEMPHILL ####[facility] [address] [place] [address] [place]#### PERSMR ####[facility] R[address]dzspphb[address] [place], [place] [address]Dr. Trevor Nichols LYMPHM # 0.72 103/ul Critically low 1.20-3.80 [facility] Comment on above: Performed By: #### Brodie HEMPHILL ####[facility] Dwcgjnzyjg[address] [place] [address] [place]#### PERSMR ####[facility] Aabhhxpjrk[address] [place], [place] [address]Dr. Trevor Nichols LYMPHM% 15.0 % Critically low 20.5-60.0 [facility] Comment on above: Performed By: #### Brodie HEMPHILL ####[facility] Eklydyphli[address] [place] [address] [place]#### PERSMR ####[facility] Ukssmqzxsp7[address] [place], [place] [address]Dr. Trevor Nichols MCH 34.4 pg Critically high 25.9-34.0 [facility] Comment on above: Performed By: #### C JOBY ####[facility] Oitvfpfvax[address] [place] [address] [place]#### PERSMR ####[facility] [address]rx[address] [address]Dr. Trevor Nichols MCHC 32.8 g/dl Normal 29.9-35.2 [facility] Comment on above: Performed By: #### C JOBY ####[facility] G[address]fyimpvp[address] [place] [address] [place]#### PERSMR ####[facility] Rydlnwumev[address] [place], [place] [address]Dr. Trevor Nichols MCV 105.0 fL Critically high 80.0-94.0 [facility] Comment on above: Performed By: #### C JOBY ####[facility] M[address]kw[address]qpip[address] [place] [address] [place]#### PERSMR ####[facility] Vzmbxowmqc[address] [place], [place] [address]Dr. Trevor Nichols METAMYELOCYTE # Normal [facility] Comment on above: Performed By: #### C JOBY ####[facility] [address]suhd[address] [place] [address] [place]#### PERSMR ####[facility] Ypoaawocxj[address] [place], [place] [address]Dr. Trevor Nichols METAMYELOCYTE % Normal [facility] Comment on above: Performed By: #### C JOBY ####[facility] Sngrsxawar[address] [place] [address] [place]#### PERSMR ####[facility] Tgmuvvljbi[address] [place], [place] [address]Dr. Trevor Nichols MONOM# 1.25 103/ul Critically high 0.30-0.80 [facility] Comment on above: Performed By: #### C JOBY ####[facility] S[address]aytng[address] [place] [address] [place]#### PERSMR ####[facility] Vwlfsuvlod[address] [place], [place] [address]Dr. Trevor Nichols MONOM% 26.0 % Critically high 1.7-12.0 [facility] Comment on above: Performed By: #### C JOBY ####[facility] [address] [address]Gerken [place]#### PERSMR ####[facility] [address]ur[address] [address]Dr. Trevor Nichols MPV 10.5 fL Normal 9.5-13.5 [facility] Comment on above: Performed By: #### Brodie HEMPHILL ####[facility] [address] [address]Gerken [place]#### PERSMR ####[facility] Dr[address]pr[address]fer[address] [id number]. Trevor Nichols MYELOCYTE # Normal [facility] Comment on above: Performed By: #### Brodie HEMPHILL ####[facility] [address] [place] [address] [place]#### PERSMR ####[facility] [address] [address]Dr. Trevor Nichols MYELOCYTE % Normal [facility] Comment on above: Performed By: #### Brodie HEMPHILL ####[facility] F[address]vonjhlez[address] [place] [address] [place]#### PERSMR ####[facility] Tognxrdysl[address] [place], [place] [address]Dr. Trevor Nichols NRBC Normal [facility] Comment on above: Performed By: #### Brodie HEMPHILL ####[facility] Vintq[address]vicf[address] [place], [place] [address]Gerken [place]#### PERSMR ####[facility] Ehffxmqflc[address] [place], [place] [address]Dr. Trevor Nichols PATH REVIEW INDICATED Normal [facility] Comment on above: Performed By: #### Brodie HEMPHILL ####[facility] F[address]nrzzlr[address] [place] [address] [place]#### PERSMR ####[facility] Pr[address]qrsvei[address] [place], [place] [address]Dr. Trevor Nichols PLT 158 103/ul Normal 150-450 [facility] Comment on above: Performed By: #### Brodie HEMPHILL ####[facility] Ulpdnakunn[address] [place]#### PERSMR ####[facility] [address] [id number]. Trevor Nichols RBC 3.40 106/ul Critically low 4.70-6.10 [facility] Comment on above: Performed By: #### Brodie HEMPHILL ####[facility] Oxobiulcpa5003 [address] [place]#### PERSMR ####[facility] [address] [address]Dr. Trevor Nichols RDW 15.6 % Critically high 11.0-15.0 [facility] Comment on above: Performed By: #### Brodie HEMPHILL ####[facility] Kjqqlzfvty4855 [address] [place]#### PERSMR ####[facility] [address] [address]Dr. Trevor Nichols SEG # 2.35 103/ul Normal 1.40-6.50 [facility] Comment on above: Performed By: #### Brodie HEMPHILL ####[facility] Y[address]fafis[address] [place] [address] [place]#### PERSMR ####[facility] [address] [address]Dr. Trevor Nichols SEG % 49.0 % Normal 43.0-75.0 [facility] Comment on above: Performed By: #### Brodei HEMPHILL ####[facility] Usiggaudjf5146 [address] [place]#### PERSMR ####[facility] [address] [address]Dr. Trevor Nichols WBC 4.8 103/ul Normal 4.0-11.0 [facility] Comment on above: Performed By: #### C JOBY ####[facility] X[address]cezu[address] [place] [address] [place]#### PERSMR ####[facility] [address] [address]Dr. Trevor Nichols MAGNESIUMon 04-29-2021 Magnesium [Mass/Vol] 2.4 mg/dL Critically high 1.6-2.3 [facility] Comment on above: Performed By: #### B BANQUET SERVER, MG ####[facility] Uvzezgaech[address]47 [address] [place] PERIPHERAL SMEARon Pathologist Cyto stain Nom (Cvx/Vag) [ID] DR. BHARTI PARDO Normal [facility] Comment on above: Result Comment: Kate pheral blood smear reveals isolated monocytosis with unremarkable morphology. The neutrophils and platelets are morphologically unremarkable. No atypical lymphocytes or blasts are noted. A reactive process is favored. Clinical correlation is suggested. Dr Bharti Pardo 05/01/2021 Performed By: #### C JOBY ####[facility] [address] [place] [address] [place]#### PERSMR ####[facility] Sc[address]gopiwe[address] [place], [place] [address]DrJeffery Nichols VITAMIN D 25 OHon 04-29-2021 VIT D 25-OH 71.4 ng/mL Normal [facility] Comment on above: Performed By: #### V ITAD ####[facility] [address] [place] [address] [place] VIT D RANGES SEE BELOW Normal [facility] Comment on above: Result Comment: <20 ng/mL Vit D deficient 20 - <30 ng/mL Vit D insufficient 30 - 100 ng/mL Vit D sufficient >100 ng/mL Potential Toxicity Performed By: #### V ITAD ####[facility] Xfs[address] [place] [address] [place] POC GLUCOSE LABon 06-30-2020 Glucose [Mass/Vol] 108 mg/dL High 70-100 [facility] Comment on above: Performed By: #### 4 1000, [id number] #### [facility] [address] [facility] [place] [address], [facility] Glucose [Mass/Vol] 165 mg/dL High 70-100 [facility] Comment on above: Performed By: #### 4 1000, [id number] #### [facility] [address] C REACTIVE PROTEINon 020 CRP [Mass/Vol] 27.8 mg/L High 0.0-7.0 [facility] Comment on above: Order Comment: No: D o not add to previous draw Performed By: #### 4 1000, [id number], 01278 #### [facility] [address] [place] [address], [facility] CBC COMPLETE BLOOD COUNTon 08-29-2019 Erythrocyte distribution width (RBC) [Ratio] 14.3 % Normal 11.5-15.0 [facility] Comment on above: Order Comment: No: D o not add to previous draw Performed By: #### 4 1000, [id number] #### [facility] [address] [place] [address], [facility] Hematocrit (Bld) [Volume fraction] 34.7 % Low 39.0-50.0 [facility] Comment on above: Order Comment: No: D o not add to previous draw Performed By: #### 4 1000, [id number] #### [facility] [address] [address], [facility] Hemoglobin (Bld) [Mass/Vol] 11.6 g/dL Low 13.0-17.0 [facility] Comment on above: Order Comment: No: D o not add to previous draw Performed By: #### 4 1000, [id number] #### [facility] [address] [place] [address], [facility] MCH (RBC) [Entitic mass] 35.5 pg High 27.0-33.0 [facility] Comment on above: Order Comment: No: D o not add to previous draw Performed By: #### 4 1000, 81503 #### [facility] [address] [place] [address], [facility] MCHC (RBC) [Mass/Vol] 33.4 g/dL Normal 32.0-35.0 [facility] Comment on above: Order Comment: No: D o not add to previous draw Performed By: #### 4 1000, 04508 #### [facility] [address] [place] [address], [facility] MCV (RBC) [Entitic vol] 106.1 fL High 82.0-98.0 [facility] Comment on above: Order Comment: No: D o not add to previous draw Performed By: #### 4 1000, 19199 #### [facility] [address] [place] [address], [facility] Nucleated RBC/100 WBC (Bld) [Ratio] 0 % Normal 0-0 [facility] Comment on above: Order Comment: No: D o not add to previous draw Performed By: #### 4 1000, 69177 #### [facility] [address] [address], [facility] PLAT CNT 150 10*3/uL Normal 150-400 [facility] Comment on above: Order Comment: No: D o not add to previous draw Performed By: #### 4 1000, 32943 #### [facility] [address] [address], [facility] RBC (Bld) [#/Vol] 3.27 10*6/uL Low 4.20-5.70 [facility] Comment on above: Order Comment: No: D o not add to previous draw Performed By: #### 4 1000, 72885 #### [facility] [address] [address], [facility] WBC (Bld) [#/Vol] 5.86 10*3/uL Normal 4.00-10.60 [facility] Comment on above: Order Comment: No: D o not add to previous draw Performed By: #### 4 1000, 74560 #### [facility] [address] CPKon 06-29-2020 CK [Catalytic activity/Vol] 45 U/L Normal 30-223 [facility] Comment on above: Order Comment: Unkno wn Performed By: #### 9 9909, 15957, 41339, 16119 #### [address] BRAIN WO CONTRASTon 06-29 CT BRAIN WO CONTRAST [facility] Department of Radiology [address] [place] [address] Patient Name: CHIKI JUAREZ : 1945 Sex: M Age: Race: White Pt. Location: [id number] Patient Status: I Ordered Date: 06/29/2020 9:20:00 [...] region. Electronically signed: Aleta Armas. Transcribed by: [email or web address], User Resident: Electronically Signed by: ALETA ARMAS @ 06/29/2020 07:16 PM Normal [facility] Comment on above: Order Comment: No: D o not add to previous draw D DIMER TESTon 06-29-2020 D-DIMER TEST 1.44 mcg/mL FEU High 0.27-0.49 [facility] Comment on above: Order Comment: No: D o not add to previous draw Result Comment: D-Di fide values of less than 0.50 ug/ml (FEU) are considered to be a negative predictor of thrombosis. However, the D-Dimer result should be used in conjunction with pretest probability and should not be used alone to diagnose a thrombotic event. Performed By: #### 4 1000, 21114, 74570 #### [facility] [address] [facility]. [address] FERRITINon 06-29-2020 Ferritin [Mass/Vol] 271 ng/mL Normal 24-336 [facility] Comment on above: Order Comment: Unkno wn Performed By: #### 9 9909, 47042, 21714, 01691 #### [facility] [address] [facility] [address] LDH BLOODon 06-29-2020 LDH 148 Units/L Normal 140-271 [facility] Comment on above: Order Comment: Unkno wn Performed By: #### 9 9909, 53763, 65170, 50394 #### [facility] [address] [facility]. [address] LIPID PROFILEon 06-29-2020 Cholesterol [Mass/Vol] 176 mg/dL Normal 120-200 [facility] Comment on above: Order Comment: No: D o not add to previous draw Result Comment: CHOL ESTEROL REFERENCE RANGE: 20 YEARS AND OLDER CARDIOVASCULAR RISK Less than 200 mg/dl Low Risk 200 to 239 mg/dl Borderline Risk 240 mg/dl and greater High Risk Performed By: #### 4 1000, , 05263 #### [facility] [address] [place] [address], [place] Cholesterol in HDL [Mass/Vol] 39 mg/dL Normal 23-92 [facility] Comment on above: Order Comment: No: D o not add to previous draw Result Comment: Slig ht variation in normal range could be due to gender and/or age. HDL CHOLESTEROL REFERENCE RANGE: 20 years and older Cardiovascular Risk > or =60 mg/dL Desirable 40 TO 59 mg/dL Low Risk <40 mg/dL High Risk Performed By: #### 4 1000, , 38187 #### [facility] [address] [place] [address], [place] Cholesterol in LDL [Mass/Vol] 100 mg/dL Normal 0-130 [facility] Comment on above: Order Comment: No: D o not add to previous draw Result Comment: LDL IS A CALCULATION LDL IS ONLY VALID IF THE TRIG IS LESS THAN 400. Performed By: #### 4 1000, , 31612 #### [facility] [address] [facility] [place] [address], [place] Cholesterol.total/Ch olesterol in HDL [Mass ratio] 4.5 {ratio} Normal 0.0-4.5 [facility] Comment on above: Order Comment: No: D o not add to previous draw Performed By: #### 4 1000, , 84351 #### [facility] [address] [place] [address], [place] NON-HDL CHOLESTEROL 137 mg/dL Normal [facility] Comment on above: Order Comment: No: D o not add to previous draw Performed By: #### 4 1000, , 50293 #### [facility] [address] [place] [address], [place] Triglyceride [Mass/Vol] 187 mg/dL High 40-149 [facility] Comment on above: Order Comment: No: D o not add to previous draw Result Comment: TRIG LYCERIDE REFERENCE RANGE: 20 YEARS AND OLDER CARDIOVASCULAR RISK LESS THAN 150 mg/dl LOW RISK 150 TO 199 mg/dl BORDERLINE RISK 200 mg/dl AND GREATER HIGH RISK Performed By: #### 4 1000, 91805, 44040 #### [facility] [address] [place] [address], [facility] VLDL CHOL 37 mg/dL Normal 0-40 [facility] Comment on above: Order Comment: No: D o not add to previous draw Performed By: #### 4 1000, 24495, 12103 #### [facility] [address] [place] [address], [facility] LIVER BATTERYon 06-29-2020 Albumin [Mass/Vol] 3.4 g/dL Low 3.5-5.7 [facility] Comment on above: Order Comment: Unkno wn Performed By: #### 9 9909, 66446, 07649, 36409 #### [facility] [address] [place] [address], [place] ALKALINE PHOSPH 60 IU/L Normal 34-104 [facility] Comment on above: Order Comment: Unkno wn Performed By: #### 9 9909, 07904, 37189, 70438 #### [facility] [address] [place] [address], [place] ALT [Catalytic activity/Vol] 8 U/L Normal 7-52 [facility] Comment on above: Order Comment: Unkno wn Performed By: #### 9 9909, 12638, 38911, 57867 #### [facility] [address] [place] [address], [place] AST [Catalytic activity/Vol] 11 U/L Low 13-39 [facility] Comment on above: Order Comment: Unkno wn Performed By: #### 9 9909, 04820, 35082, 69858 #### [facility] [address] [place] [address], [place] Bilirubin [Mass/Vol] 0.5 mg/dL Normal 0.3-1.0 [facility] Comment on above: Order Comment: Unkno wn Performed By: #### 9 9909, 08633, 25808, 38655 #### [facility] [address] [place] [address], [place] Bilirubin.direct [Mass/Vol] 0.1 mg/dL Normal 0.0-0.2 [facility] Comment on above: Order Comment: Unkno wn Performed By: #### 9 9909, 74030, 20477, 24676 #### [facility] [address] [place] [address], [place] Protein [Mass/Vol] 5.8 g/dL Low 6.0-8.3 [facility] Comment on above: Order Comment: Unkno wn Performed By: #### 9 9909, 66278, 21399, 64096 #### [facility] [address] [place] [address], [place] POC GLUCOSE LABon 06-29-2020 Glucose [Mass/Vol] 112 mg/dL High 70-100 [facility] Comment on above: Performed By: #### 4 1000, 92220 #### [facility] [address] [place] [address], [place] Glucose [Mass/Vol] 105 mg/dL High 70-100 [facility] Comment on above: Performed By: #### 4 1000, 73051 #### [facility] [address] [place] [address], [place] Glucose [Mass/Vol] 94 mg/dL Normal 70-100 [facility] Comment on above: Performed By: #### 4 1000, 80471, 51976 #### [facility] [address] [place] [address], [place] Glucose [Mass/Vol] 121 mg/dL High 70-100 [facility] Comment on above: Performed By: #### 4 1000, 66376 #### [address] PORTABLE CHEST 1 VIEWon 06-17 PORTABLE CHEST 1 VIEW [facility] Department of Radiology [address] [place] [id number] Patient Name: CHIKI JUAREZ : 1945 Sex: M Age: Race: White Pt. Location: [id number] Patient Status: I Ordered Date: 06/29/2020 5:45:00 [...] placement. Electronically signed: Aleta Armas. Transcribed by: [email or web address], User Resident: Electronically Signed by: ALETA ARMAS @ 06/29/2020 08:15 PM Normal [facility] Comment on above: Order Comment: No: D o not add to previous draw BASIC METABOLIC PANELon 11 Calcium [Mass/Vol] 8.8 mg/dL Normal 8.6-10.3 [facility] Comment on above: Order Comment: No: D o not add to previous draw Performed By: #### 4 1000, 58570, 56013 #### [facility] [address] [place] [address], [place] Chloride [Moles/Vol] 102 mmol/L Normal 98-107 [facility] Comment on above: Order Comment: No: D o not add to previous draw Performed By: #### 4 1000, 31864, 26098 #### [facility] [address] [place] [address], [place] CO2 [Moles/Vol] 24 mmol/L Normal 21-31 [facility] Comment on above: Order Comment: No: D o not add to previous draw Performed By: #### 4 1000, 00231, 03872 #### [facility] [address] [place] [address], [place] Creatinine [Mass/Vol] 1.31 mg/dL High 0.70-1.30 [facility] Comment on above: Order Comment: No: D o not add to previous draw Performed By: #### 4 1000, 93695, 91796 #### [facility] [address] [place] [address], [place] GFR/1.73 sq M predicted among blacks MDRD (S/P/Bld) [Vol rate/Area] mL/min/{1.73_m2} Normal >60 [facility] Comment on above: Order Comment: No: D o not add to previous draw Result Comment: Calc ulation may not be valid for patients over 70 years Performed By: #### 4 1000, 65797, 66058 #### [facility] [address] [place] [address], [place] GFR/1.73 sq M predicted among non-blacks MDRD (S/P/Bld) [Vol rate/Area] 54 ml/min/1.73sq m Abnormal >60 [facility] Comment on above: Order Comment: No: D o not add to previous draw Result Comment: Calc ulation may not be valid for patients over 70 years Performed By: #### 4 1000, 90574, 75046 #### [facility] [address] [place] [address], [place] Glucose [Mass/Vol] 96 mg/dL Normal 70-100 [facility] Comment on above: Order Comment: No: D o not add to previous draw Performed By: #### 4 1000, 57453, 22108 #### [facility] [address] [place] [address], [place] Potassium [Moles/Vol] 4.3 mmol/L Normal 3.5-5.1 [facility] Comment on above: Order Comment: No: D o not add to previous draw Performed By: #### 4 1000, 03200, 70832 #### [facility] [address] [place] [address], [place] Sodium [Moles/Vol] 133 mmol/L Low 136-145 [facility] Comment on above: Order Comment: No: D o not add to previous draw Performed By: #### 4 1000, 90178, 59995 #### [facility] [address] [place] [address], [place] Urea nitrogen [Mass/Vol] 26 mg/dL High 7-25 [facility] Comment on above: Order Comment: No: D o not add to previous draw Performed By: #### 4 1000, 79799, 09488 #### [facility] [address] [place] [address], [place] CBC COMPLETE BLOOD COUNTon 08-28-2019 Erythrocyte distribution width (RBC) [Ratio] 14.4 % Normal 11.5-15.0 [facility] Comment on above: Order Comment: No: D o not add to previous draw Performed By: #### 4 1000, , 05949 #### [facility] [address] [place] [address], [facility] Hematocrit (Bld) [Volume fraction] 35.2 % Low 39.0-50.0 [facility] Comment on above: Order Comment: No: D o not add to previous draw Performed By: #### 4 1000, , 13163 #### [facility] [address] [place] [address], [facility] Hemoglobin (Bld) [Mass/Vol] 11.8 g/dL Low 13.0-17.0 [facility] Comment on above: Order Comment: No: D o not add to previous draw Performed By: #### 4 1000, , #### [facility] [address] [place] [address], [facility] MCH (RBC) [Entitic mass] 35.5 pg High 27.0-33.0 [facility] Comment on above: Order Comment: No: D o not add to previous draw Performed By: #### 4 1000, , #### [facility] [address] [place] [address], [facility] MCHC (RBC) [Mass/Vol] 33.5 g/dL Normal 32.0-35.0 [facility] Comment on above: Order Comment: No: D o not add to previous draw Performed By: #### 4 1000, , 11674 #### [facility] [address] [place] [address], [facility] MCV (RBC) [Entitic vol] 106.0 fL High 82.0-98.0 [facility] Comment on above: Order Comment: No: D o not add to previous draw Performed By: #### 4 1000, , 74511 #### [facility] [address] [place] [address], [facility] Nucleated RBC/100 WBC (Bld) [Ratio] 0 % Normal 0-0 [facility] Comment on above: Order Comment: No: D o not add to previous draw Performed By: #### 4 1000, 35543, 79965 #### [facility] [address] [facility] [address], [facility] PLAT CNT 158 10*3/uL Normal 150-400 [facility] Comment on above: Order Comment: No: D o not add to previous draw Performed By: #### 4 1000, 73078, 84276 #### [facility] [address] [place] [address], [facility] RBC (Bld) [#/Vol] 3.32 10*6/uL Low 4.20-5.70 [facility] Comment on above: Order Comment: No: D o not add to previous draw Performed By: #### 4 1000, 91793, 39267 #### [facility] [address] [place] [address], [facility] WBC (Bld) [#/Vol] 7.25 10*3/uL Normal 4.00-10.60 [facility] Comment on above: Order Comment: No: D o not add to previous draw Performed By: #### 4 1000, , 03605 #### [facility] [address] Cardiovascular Lab Reporton 06-28-2020 Cardiovascular Lab Report [facility] Patient Name: Chiki Juarez [facility] MR #: [id number] Physician: Connor Carrera MD Department of Service Date: 06/28/2020 Medicine Birthdate: 1945 Division of Room #: 3CD 510648 Cardiology Adult Cardiovascular Services [facility] [address] [place] [address] Cardiovascular Laboratory Report DUAL CHAMBER PACEMAKER IMPLANT PROCEDURE NOTE DATE OF PROCEDURE: 06/28/2020 PERFORMING PHYSICIAN: Dr. Connor Carrera CONSENT: Patient LOCATION: EP Lab PROCEDURE PERFORMED: 1. Implantation of pacemaker ([employer]) 2. Ultrasound guided venous access INDICATIONS: [...] using modified seldinger technique using a 5 Togolese micro-puncture needle on two occasions and 0.24 [...] was made enough for the device. 6 [place] Safesheaths were placed over the wire. An active fixation [employer] pacing lead was then delivered through the 6Fsheath to the right ventricle. After confirmation of lead position on orthogonal views (PARK and CYMRO) to confirm septal position, the screw was activated, and the lead was placed in the right ventricular mid cavity towards the septum. After confirmation of good sensing parameters, injury pattern and pacing thresholds, 10V pacing was done and no diaphragmatic stimulation was noted. It was then secured in the pocket using three 1-0 Silk sutures. Then an active fixation [employer] lead was delivered through the 6Fsheath to the right atrial appendage. After confirmation of lead position on orthogonal views (PARK and CYMRO), the screw was activated. After confirmation of [...] immediate procedural complications were noted. Device info: [employer] Accolade MRI EL Model# L331 Serial# [id number] RA lead: Model# INGEVITY 7740 (45cms) Serial# [id number] Sensin.7mV Threshold: 0.9V@0.4ms Impedance: 666Ohms RV lead: Model# INGEVITY [id number](52cms) Serial# [id number] Sensin.1mV Threshold: 0.4V@0.4ms Impedance: 746Ohms POST PROCEDURE [...] Carrera MD Date Trans: 06/28/2020 03:33 P/alondra [id number] cc: Will Sherwood M.D. [address] [place] [phone] Normal [facility] MAGNESIUM BLOODon 06-28-2020 Magnesium [Mass/Vol] 2.1 mg/dL Normal 1.9-2.7 [facility] Comment on above: Order Comment: No: D o not add to previous draw Performed By: #### 4 1000, 42468, 19477 #### [facility] [address] [place] [address], [place] PHOSPHORUS BLOODon 0 Phosphate [Mass/Vol] 3.7 mg/dL Normal 2.5-5.0 [facility] Comment on above: Order Comment: No: D o not add to previous draw Performed By: #### 4 1000, 55443, 46381 #### [facility] [address] [place] [address], [place] POC GLUCOSE LABon 06-28-2020 Glucose [Mass/Vol] 93 mg/dL Normal 70-100 [facility] Comment on above: Performed By: #### 4 1000, 36040 #### [facility] [address] [place] [address], [place] Glucose [Mass/Vol] 90 mg/dL Normal 70-100 [facility] Comment on above: Performed By: #### 4 1000, 79263 #### [facility] [address] [place] [address], [place] Glucose [Mass/Vol] 97 mg/dL Normal 70-100 [facility] Comment on above: Performed By: #### 4 1000, 09420 #### [facility] [address] [place] [address], [place] Glucose [Mass/Vol] 99 mg/dL Normal 70-100 [facility] Comment on above: Performed By: #### 4 1000, 50245 #### [facility] [address] [place] [address], [place] APTTon 06-27-2020 aPTT Coag (Bld) [Time] 34.8 s Normal 25.0-35.0 [facility] Comment on above: Order Comment: No: [...] THIS PURPOSE. Performed By: #### 4 1000, 09113 #### [facility] [address] BASIC METABOLIC PANELon 11-1 Calcium [Mass/Vol] 9.1 mg/dL Normal 8.6-10.3 [facility] Comment on above: Order Comment: No: D o not add to previous draw Performed By: #### 4 1000, 90374, 57651 #### [facility] [address] [place] [address], [facility] Chloride [Moles/Vol] 104 mmol/L Normal 98-107 [facility] Comment on above: Order Comment: No: D o not add to previous draw Performed By: #### 4 1000, 28271, 66880 #### [facility] [address] [place] [address], [facility] CO2 [Moles/Vol] 23 mmol/L Normal 21-31 [facility] Comment on above: Order Comment: No: D o not add to previous draw Performed By: #### 4 1000, 11518, 71951 #### [facility] [address] [place] [address], [facility] Creatinine [Mass/Vol] 1.21 mg/dL Normal 0.70-1.30 [facility] Comment on above: Order Comment: No: D o not add to previous draw Performed By: #### 4 1000, 46222, 01318 #### [facility] [address] [place] [address], [facility] GFR/1.73 sq M predicted among blacks MDRD (S/P/Bld) [Vol rate/Area] mL/min/{1.73_m2} Normal >60 [facility] Comment on above: Order Comment: No: D o not add to previous draw Result Comment: Calc ulation may not be valid for patients over 70 years Performed By: #### 4 1000, , 27216 #### [facility] [address] [place] [address], [place] GFR/1.73 sq M predicted among non-blacks MDRD (S/P/Bld) [Vol rate/Area] 59 ml/min/1.73sq m Abnormal >60 [facility] Comment on above: Order Comment: No: D o not add to previous draw Result Comment: Calc ulation may not be valid for patients over 70 years Performed By: #### 4 1000, , 78941 #### [facility] [address] [place] [address], [place] Glucose [Mass/Vol] 132 mg/dL High 70-100 [facility] Comment on above: Order Comment: No: D o not add to previous draw Performed By: #### 4 1000, , 46891 #### [facility] [address] [place] [address], [place] Potassium [Moles/Vol] 5.2 mmol/L High 3.5-5.1 [facility] Comment on above: Order Comment: No: D o not add to previous draw Performed By: #### 4 1000, , 74469 #### [facility] [address] [place] [address], [place] Sodium [Moles/Vol] 135 mmol/L Low 136-145 [facility] Comment on above: Order Comment: No: D o not add to previous draw Performed By: #### 4 1000, , 52565 #### [facility] [address] [place] [address], [place] Urea nitrogen [Mass/Vol] 21 mg/dL Normal 7-25 [facility] Comment on above: Order Comment: No: D o not add to previous draw Performed By: #### 4 1000, , 60399 #### [facility] [address] [place] [address], [facility] C REACTIVE PROTEINon 020 CRP [Mass/Vol] 40.5 mg/L High 0.0-7.0 [facility] Comment on above: Order Comment: No: D o not add to previous draw Performed By: #### 4 1000, 72068, 85951 #### [facility] [address] [place] [address], [facility] CBC W/DIFFon 06-27-2020 ABS BASOPHILS 0.0 10*3/uL Normal 0.0-0.2 [facility] Comment on above: Order Comment: No: D o not add to previous draw Performed By: #### 4 1000, 36407 #### [facility] [address] [place] [address], [facility] ABS NEUTROPHILS 4.5 10*3/uL Normal 1.6-7.6 [facility] Comment on above: Order Comment: No: D o not add to previous draw Performed By: #### 4 1000, 21939 #### [facility] [address] [facility] [place] [address], [facility] Basophils/100 WBC (Bld) 0.0 % Normal 0.0-1.0 [facility] Comment on above: Order Comment: No: D o not add to previous draw Performed By: #### 4 1000, 95797 #### [facility] [address] [facility] [place] [address], [facility] Eosinophils (Bld) [#/Vol] 0.0 10*3/uL Normal 0.0-0.5 [facility] Comment on above: Order Comment: No: D o not add to previous draw Performed By: #### 4 1000, 05744 #### [facility] [address] [place] [address], [facility] Eosinophils/100 WBC (Bld) 0.0 % Normal 0.0-6.0 [facility] Comment on above: Order Comment: No: D o not add to previous draw Performed By: #### 4 1000, 43447 #### [facility] [address] [place] [address], [facility] Erythrocyte distribution width (RBC) [Ratio] 14.1 % Normal 11.5-15.0 [facility] Comment on above: Order Comment: No: D o not add to previous draw Performed By: #### 4 1000, 89123 #### [facility] [address] [place] [address], [facility] GIANT PLATELETS Present Normal [facility] Comment on above: Order Comment: No: D o not add to previous draw Performed By: #### 4 1000, 14749 #### [facility] [address] [place] [address], [facility] Hematocrit (Bld) [Volume fraction] 36.0 % Low 39.0-50.0 [facility] Comment on above: Order Comment: No: D o not add to previous draw Performed By: #### 4 1000, 30741 #### [facility] [address] [place] [address], [facility] Hemoglobin (Bld) [Mass/Vol] 11.8 g/dL Low 13.0-17.0 [facility] Comment on above: Order Comment: No: D o not add to previous draw Performed By: #### 4 1000, 63035 #### [facility] [address] [facility] [place] [address], [facility] Lymphocytes (Bld) [#/Vol] 0.5 10*3/uL Low 1.2-4.0 [facility] Comment on above: Order Comment: No: D o not add to previous draw Performed By: #### 4 1000, 70645 #### [facility] [address] [place] [id number], [facility] Lymphocytes/100 WBC (Bld) 8.2 % Low 20.0-45.0 [facility] Comment on above: Order Comment: No: D o not add to previous draw Performed By: #### 4 1000, 44089 #### [facility] [address] [place] [address], [facility] MCH (RBC) [Entitic mass] 35.2 pg High 27.0-33.0 [facility] Comment on above: Order Comment: No: D o not add to previous draw Performed By: #### 4 1000, 23724 #### [facility] [address] [place] [address], [facility] MCHC (RBC) [Mass/Vol] 32.8 g/dL Normal 32.0-35.0 [facility] Comment on above: Order Comment: No: D o not add to previous draw Performed By: #### 4 1000, 38195 #### [facility] [address] [place] [address], [facility] MCV (RBC) [Entitic vol] 107.5 fL High 82.0-98.0 [facility] Comment on above: Order Comment: No: D o not add to previous draw Performed By: #### 4 1000, 78693 #### [facility] [address] [facility] [place] [address], [facility] METAMYELO 3.7 % High 0.0-0.0 [facility] Comment on above: Order Comment: No: D o not add to previous draw Performed By: #### 4 1000, [id number] #### [facility] [address] [address], [facility] Monocytes (Bld) [#/Vol] 0.5 10*3/uL Normal 0.1-1.0 [facility] Comment on above: Order Comment: No: D o not add to previous draw Performed By: #### 4 1000, [id number] #### [facility] [address] [place] [address], [facility] MONOS 9.2 % Normal 5.0-12.0 [facility] Comment on above: Order Comment: No: D o not add to previous draw Performed By: #### 4 1000, [id number] #### [facility] [address] [place] [address], [facility] MYELOS 3.7 % High 0.0-0.0 [facility] Comment on above: Order Comment: No: D o not add to previous draw Performed By: #### 4 1000, 06295 #### [facility] [address] [place] [address], [place] Neutrophils/100 WBC (Bld) 75.2 % High 40.0-72.0 [facility] Comment on above: Order Comment: No: D o not add to previous draw Performed By: #### 4 1000, [id number] #### [facility] [address] [place] [address], [place] NRBC SCAN Present Normal [facility] Comment on above: Order Comment: No: D o not add to previous draw Performed By: #### 4 1000, [id number] #### [facility] [address] [place] [address], [place] Nucleated RBC/100 WBC (Bld) [Ratio] 0 % Normal 0-0 [facility] Comment on above: Order Comment: No: D o not add to previous draw Performed By: #### 4 1000, [id number] #### [facility] [address] [place] [address], [place] PLAT CNT 153 10*3/uL Normal 150-400 [facility] Comment on above: Order Comment: No: D o not add to previous draw Performed By: #### 4 1000, 46644 #### [facility] [address] [place] [address], [place] RBC (Bld) [#/Vol] 3.35 10*6/uL Low 4.20-5.70 [facility] Comment on above: Order Comment: No: D o not add to previous draw Performed By: #### 4 1000, 16850 #### [facility] [address] [place] [address], [place] WBC (Bld) [#/Vol] 5.92 10*3/uL Normal 4.00-10.60 [facility] Comment on above: Order Comment: No: D o not add to previous draw Performed By: #### 4 1000, 02210 #### [facility] [address] [place] [address], [facility] CPKon 06-27-2020 CK [Catalytic activity/Vol] 90 U/L Normal 30-223 [facility] Comment on above: Order Comment: No: D o not add to previous draw Performed By: #### 4 1000, 04165, 93048 #### [facility] [address] [place] [address], [facility] CTA HEADon 06-27-2020 CTA HEAD [facility] Department of Radiology [address] [place] [id number] Patient Name: CHIKI JUAREZ : 1945 Sex: M Age: Race: White Pt. Location: [id number] Patient Status: I Ordered Date: 06/27/2020 9:05:00 [...] achievable Electronically signed: Ashu García. Transcribed by: [email or web address], User Resident: Electronically Signed by: ASHU GARCÍA @ 06/27/2020 01:12 PM Normal [facility] Comment on above: Order Comment: No: D o not add to previous draw CTA NECKon 06-27-2020 CTA NECK [facility] Department of Radiology [address] [place] [id number] Patient Name: CHIKI JUAREZ : 1945 Sex: M Age: Race: White Pt. Location: [id number] Patient Status: I Ordered Date: 06/27/2020 9:05:00 [...] viewed on a separate workstation. The [place] Symptomatic Carotid Endarterectomy Trial (NASCET) method for [...] achievable Electronically signed: Ashu García. Transcribed by: [email or web address], User Resident: Electronically Signed by: ASHU GARCÍA @ 06/27/2020 01:08 PM Normal [facility] D DIMER TESTon 06-27-2020 D-DIMER TEST 0.39 mcg/mL FEU Normal 0.27-0.49 [facility] Comment on above: Order Comment: No: D o not add to previous draw Result Comment: D-Di fide values of less than 0.50 ug/ml (FEU) are considered to be a negative predictor of thrombosis. However, the D-Dimer result should be used in conjunction with pretest probability and should not be used alone to diagnose a thrombotic event. Performed By: #### 4 1000, [id number] #### [facility] [address] [place] [address], [facility] FERRITINon 06-27-2020 Ferritin [Mass/Vol] 250 ng/mL Normal 24-336 [facility] Comment on above: Order Comment: No: D o not add to previous draw Performed By: #### 4 1000, 16675, 10378 #### [facility] [address] HEMOGLOBIN A1Con 06-27-2020 HbA1c (Bld) [Mass fraction] 134 mmol/L Normal [facility] Comment on above: Order Comment: No: D o not add to previous draw Performed By: #### 4 1000, 55190, 31363 #### [facility] [address] [place] [address], [facility] HbA1c (Bld) [Mass fraction] 6.3 % High 4.0-6.0 [facility] Comment on above: Order Comment: No: D o not add to previous draw Performed By: #### 4 1000, 59922, 44359 #### [facility] [address] [place] [address], [facility] LDH BLOODon 06-27-2020 LDH 213 Units/L Normal 140-271 [facility] Comment on above: Order Comment: No: D o not add to previous draw Performed By: #### 4 1000, , 22781 #### [facility] [address] [place] [address], [facility] LIVER BATTERYon 06-27-2020 Albumin [Mass/Vol] 3.5 g/dL Normal 3.5-5.7 [facility] Comment on above: Order Comment: No: D o not add to previous draw Performed By: #### 4 1000, , [id number] #### [facility] [address] [place] [address], [place] ALKALINE PHOSPH 62 IU/L Normal 34-104 [facility] Comment on above: Order Comment: No: D o not add to previous draw Performed By: #### 4 1000, , 28005 #### [facility] [address] [place] [address], [place] ALT [Catalytic activity/Vol] 11 U/L Normal 7-52 [facility] Comment on above: Order Comment: No: D o not add to previous draw Performed By: #### 4 1000, , 19616 #### [facility] [address] [place] [address], [place] AST [Catalytic activity/Vol] 10 U/L Low 13-39 [facility] Comment on above: Order Comment: No: D o not add to previous draw Performed By: #### 4 1000, , 16227 #### [facility] [address] [place] [address], [place] Bilirubin [Mass/Vol] 0.5 mg/dL Normal 0.3-1.0 [facility] Comment on above: Order Comment: No: D o not add to previous draw Performed By: #### 4 1000, , 34213 #### [facility] [address] [place] [address], [place] Bilirubin.direct [Mass/Vol] 0.2 mg/dL Normal 0.0-0.2 [facility] Comment on above: Order Comment: No: D o not add to previous draw Performed By: #### 4 1000, , 12564 #### [facility] [address] [place] [address], [place] Protein [Mass/Vol] 6.0 g/dL Normal 6.0-8.3 [facility] Comment on above: Order Comment: No: D o not add to previous draw Performed By: #### 4 1000, 78881, 28076 #### [facility] [address] [place] [address], [facility] MAGNESIUM BLOODon 06-27-2020 Magnesium [Mass/Vol] 2.3 mg/dL Normal 1.9-2.7 [facility] Comment on above: Order Comment: No: D o not add to previous draw Performed By: #### 4 1000, 89568, 90413 #### [facility] [address] [place] [address], [facility] POC GLUCOSE LABon 06-27-2020 Glucose [Mass/Vol] 103 mg/dL High 70-100 [facility] Comment on above: Performed By: #### 4 1000, 76482 #### [facility] [address] [place] [address], [facility] Glucose [Mass/Vol] 100 mg/dL Normal 70-100 [facility] Comment on above: Performed By: #### 4 1000, 17032 #### [facility] [address] [place] [address], [facility] POTASSIUM BLOODon 06-27-2020 Potassium [Moles/Vol] 4.5 mmol/L Normal 3.5-5.1 [facility] Comment on above: Order Comment: No: D o not add to previous draw Performed By: #### 4 1406 #### [facility] [address] [place] [address], [facility] PROTHROMBIN TIMEon 0 INR Coag (PPP) [Relative time] 1.05 {INR} Normal 0.91-1.16 [facility] Comment on above: Order Comment: No: [...] CHEST 1995;108:[id number]. Performed By: #### 4 1000, 68351 #### [facility] [address] PT Coag (PPP) [Time] 13.7 s Normal 12.3-14.8 [facility] Comment on above: Order Comment: No: D o not add to previous draw Result Comment: ALL RESULTS MUST BE INTERPRETED WITH RESPECT TO BLOOD DRAWING ARTIFACT OR DILUTION ERROR OF ANTICOAGULANT AT THE TIME OF SAMPLING. Performed By: #### 4 1000, 15200 #### [facility] [address] TSH3 WITH REFLEX FT4on 06-27 TSH 3RD GENERATION 0.86 uIU/mL Normal 0.34-5.60 [facility] Comment on above: Performed By: #### 4 1000, 24415, 76904 #### [facility] [address] [facility] VITAMIN B12on 06-27-2020 Cobalamin (Vitamin B12) [Mass/Vol] 3006 pg/mL High 180-914 [facility] Comment on above: Result Comment: REFE RENCE RANGES: 180-914 pg/mL Normal 145-179 pg/mL Indeterminate <145 pg/mL Deficient Performed By: #### 4 1000, 36605, 29747 #### [facility] [address] [place] [address], [facility] PHOSPHORUS BLOODon 0 Phosphate [Mass/Vol] 3.2 mg/dL Normal 2.5-5.0 [facility] Comment on above: Order Comment: No: D o not add to previous draw Performed By: #### 4 1000, 79731 #### [facility] [address] [facility] [place] [address], [facility] TROPONIN-Ion 06-26-2020 Troponin I.cardiac [Mass/Vol] 0.01 ng/mL Normal 0.00-0.04 [facility] Comment on above: Order Comment: No: D o not add to previous draw Result Comment: REFE RENCE RANGES: 0.00 - 0.04 ng/ml NORMAL 0.05 - 0.50 ng/ml INDETERMINATE > 0.50 ng/ml CONSISTENT WITH AN M.I. Performed By: #### 4 1000, 64346 #### [facility] [address] Vital Signs Date Time Vital Sign Value Performing Clinician Facility 11-21-2024 15:05-0400 Body mass index (BMI) [Ratio] 32.52 kg/m2 Tyler Draper MD Work Phone: [facility] 11-21-2024 15:05-0400 Body temperature 97.7 [degF] Tyler Draper MD Work Phone: [facility] 11-21-2024 15:05-0400 Body weight 97 kg Tyler Draper MD Work Phone: [facility] 11-21-2024 15:05-0400 Diastolic blood pressure 65 mm[Hg] Tyler Draper MD Work Phone: [facility] 11-21-2024 15:05-0400 Heart rate 83 /min Tyler Draper MD Work Phone: [facility] 11-21-2024 15:05-0400 Respiratory rate 24 /min Tyler Draper MD Work Phone: [facility] 11-21-2024 15:05-0400 SaO2% (BldA) [Mass fraction] 90 % Tyler Draper MD Work Phone: [facility] 11-21-2024 15:05-0400 Systolic blood pressure 122 mm[Hg] Tyler Draper MD Work Phone: [facility] 06-20-2024 08:42-0500 Body height 162.6 cm Connor Biedenbach DO Work Phone: [facility] 06-20-2024 08:42-0500 Body mass index (BMI) [Ratio] 37.76 kg/m2 Connor Biedenbach DO Work Phone: [facility] 06-20-2024 08:42-0500 Body weight 99.79 kg Connor Biedenbach DO Work Phone: [facility] 06-09-2024 09:43-0400 Body height 162.6 cm Connor Biedenbach DO Work Phone: [facility] 06-09-2024 09:43-0400 Body mass index (BMI) [Ratio] 37.76 kg/m2 Connor Biedenbach DO Work Phone: [facility] 06-09-2024 09:43-0400 Body weight 99.79 kg Connor Biedenbach DO Work Phone: [facility] 06-06-2024 13:36-0400 Body mass index (BMI) [Ratio] 33.83 kg/m2 Tyler Draper MD Work Phone: [facility] 06-06-2024 13:36-0400 Body temperature 97 [degF] Tyler Draper MD Work Phone: [facility] 06-06-2024 13:36-0400 Body weight 100.9 kg Tyler Draper MD Work Phone: [facility] 06-06-2024 13:36-0400 Diastolic blood pressure 59 mm[Hg] Tyler Draper MD Work Phone: [facility] 06-06-2024 13:36-0400 Heart rate 74 /min Tyler Draper MD Work Phone: [facility] 06-06-2024 13:36-0400 Respiratory rate 18 /min Tyler Draper MD Work Phone: [facility] 06-06-2024 13:36-0400 SaO2% (BldA) [Mass fraction] 90 % Tyler Draper MD Work Phone: [facility] 06-06-2024 13:36-0400 Systolic blood pressure 109 mm[Hg] Tyler Draper MD Work Phone: [facility] 06-01-2024 16:00-0400 Diastolic blood pressure 64 mm[Hg] MD Pito Patterson Work Phone: [facility] 06-01-2024 16:00-0400 Heart rate 75 /min MD Pito Patterson Work Phone: [facility] 06-01-2024 16:00-0400 Inhaled oxygen concentration 4 % MD Pito Patterson Work Phone: [facility] 06-01-2024 16:00-0400 Respiratory rate 20 /min MD Pito Patterson Work Phone: [facility] 06-01-2024 16:00-0400 SaO2% (BldA) [Mass fraction] 99 % MD Pito Patterson Work Phone: [facility] 06-01-2024 16:00-0400 Systolic blood pressure 121 mm[Hg] MD Pito Patetrson Work Phone: [facility] 06-01-2024 13:16-0400 Inhaled oxygen flow rate 4 L/min MD Pito Patterson Work Phone: [facility] 06-01-2024 13:02-0400 Body height 162.56 cm MD Pito Patterson Work Phone: [facility] 06-01-2024 13:02-0400 Body temperature 97.5 [degF] MD Pito Patterson Work Phone: [facility] 06-01-2024 13:02-0400 Body weight 98.88 kg MD Pito Patterson Work Phone: [facility] 05-31-2024 14:31-0400 Body height 162.6 cm Connor Crawley DO Work Phone: [facility] 05-31-2024 14:31-0400 Body mass index (BMI) [Ratio] 37.76 kg/m2 Connor Bourgeoisencherri DO Work Phone: [facility] 05-31-2024 14:31-0400 Body weight 99.79 kg Connor Crawley DO Work Phone: [facility] 04-22-2024 09:41-0400 Blood Pressure Location Oni MCKEON [facility] 04-22-2024 09:41-0400 Body temperature 98.6 [degF] Oni MCKEON [facility] 04-22-2024 09:41-0400 Diastolic blood pressure 52 mm[Hg] Oni MCKEON [facility] 04-22-2024 09:41-0400 Heart rate 59 /min Oni MCKEON [facility] 04-22-2024 09:41-0400 Respiratory rate 16 /min Oni MCKEON [facility] 04-22-2024 09:41-0400 Systolic blood pressure 102 mm[Hg] Oni MCKEON [facility] 04-19-2024 14:18-0400 Body height 172.7 cm Tyler Draper MD Work Phone: [facility] 04-19-2024 14:18-0400 Body mass index (BMI) [Ratio] 33.16 kg/m2 Tyler Draper MD Work Phone: [facility] 04-19-2024 14:18-0400 Body temperature 96.8 [degF] Tyler Draper MD Work Phone: [facility] 04-19-2024 14:18-0400 Body weight 98.9 kg Tyler Draper MD Work Phone: [facility] 04-19-2024 14:18-0400 Diastolic blood pressure 66 mm[Hg] Tyler Draper MD Work Phone: [facility] 04-19-2024 14:18-0400 Heart rate 85 /min Tyler Draper MD Work Phone: [facility] 04-19-2024 14:18-0400 Respiratory rate 20 /min Tyler Draper MD Work Phone: [facility] 04-19-2024 14:18-0400 SaO2% (BldA) [Mass fraction] 92 % Tyler Draper MD Work Phone: [facility] 04-19-2024 14:18-0400 Systolic blood pressure 120 mm[Hg] Tyler Draper MD Work Phone: [facility] 03-09-2023 10:50-0400 Blood Pressure Location Oni MCKEON [facility] 03-09-2023 10:50-0400 Diastolic blood pressure 70 mm[Hg] Oni MCKEON [facility] 03-09-2023 10:50-0400 Heart rate 71 /min Oni MCKEON [facility] 03-09-2023 10:50-0400 Respiratory rate 16 /min Oni MCKEON [facility] 03-09-2023 10:50-0400 Systolic blood pressure 109 mm[Hg] Oni MCKEON [facility] 01-09-2022 13:00-0400 Body height 172.7 cm Hosea Herrera MD Work Phone: [facility] 01-09-2022 13:00-0400 Body temperature 97.81 [degF] Hosea Herrera MD Work Phone: [facility] 01-09-2022 13:00-0400 Body weight 100.61 kg Hosea Herrera MD Work Phone: [facility] 01-09-2022 13:00-0400 Diastolic blood pressure 68 mm[Hg] Hosea Herrera MD Work Phone: [facility] 01-09-2022 13:00-0400 Heart rate 93 /min Hosea Herrera MD Work Phone: [facility] 01-09-2022 13:00-0400 Respiratory rate 18 /min Hosea Herrera MD Work Phone: [facility] 01-09-2022 13:00-0400 SaO2% (BldA) [Mass fraction] 93 % Hosea Herrera MD Work Phone: [facility] 01-09-2022 13:00-0400 Systolic blood pressure 95 mm[Hg] Hosea Herrera MD Work Phone: [facility] 11-19-2021 10:19-0400 Blood Pressure Location Romeo Vidal Jr. [facility] 11-19-2021 10:19-0400 Diastolic blood pressure 60 mm[Hg] Romeo Vidal Jr. [facility] 11-19-2021 10:19-0400 Heart rate 80 /min Romeo Vidal Jr. [facility] 11-19-2021 10:19-0400 Respiratory rate 16 /min Romeo Vidal Jr. [facility] 11-19-2021 10:19-0400 Systolic blood pressure 113 mm[Hg] Romeo Vidal Jr. [facility] Encounters Encounter Date Encounter Type Care Provider Facility Start: 02-15-2026 ambulatory Marlys L Corwin Facility: [facility] Start: 04-24-2025 ambulatory Oni Victor ty:[facility] Start: 02-27-2025 ambulatory [facility] Start: 02-16-2025 End: 02-16-2025 Lab Drop off Marlys L Corwin [facility] Start: 02-16-2025 End: 02-16-2025 ambulatory Marlys L Corwin Facility:[facility] Start: 02-15-2025 End: 02-15-2025 ambulatory Marlys L Corwin Facility:[facility] Start: 02-14-2025 ambulatory Pito Patterson Facility :[facility] Start: 02-02-2025 End: 02-02-2025 Bamboo flowsheet Crys [facility] PA Work Phone: [facility] Start: 02-02-2025 End: 02-02-2025 Bamboo [facility] Work Phone: [facility] Start: 02-02-2025 End: 02-02-2025 Office outpatient visit 25 minutes Crys HERNANDEZ Work Phone: [facility] Comment on above: Melanocytic nevus of trunk (Primary Dx); History of SCC (squamous cell carcinoma) of skin; Seborrheic keratosis; Actinic keratosis; Ayala angioma; Other seborrheic dermatitis Start: 02-02-2025 End: 02-02-2025 ambulatory CRYS NORTHEIM Not Available Start: 12-21-2024 ambulatory CONNOR [facility] Start: 11-24-2024 End: 11-24-2024 Follow-up encounter Tyler Draper MD Work Phone: Hematology/Oncology Comment on above: TSH results Start: 11-24-2024 End: 11-24-2024 ambulatory Pito Patterson Facility:[facility] Start: 11-21-2024 End: 11-21-2024 ambulatory TYLER DRAPER Facility:[facility] Start: 11-21-2024 End: 11-21-2024 Office outpatient visit 25 minutes Tyler Draper MD Work Phone: Hematology/Oncology Comment on above: 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); History of prostate cancer; Acquired hypothyroidism Start: 11-15-2024 End: 11-15-2024 ambulatory TYLER DRAPER Facility:[facility] Start: 11-15-2024 End: 11-15-2024 Subsequent hospital visit by physician Arrival Time Radiology Work Phone: [facility]iology [facility] Comment on above: Localized enlarged l ymph nodes [R59.0] Start: 10-21-2024 End: 10-21-2024 ambulatory [facility] Start: 10-17-2024 End: 10-28-2024 ambulatory Pito Patterson Facility:[id number] Start: 10-14-2024 End: 10-14-2024 Telephone encounter Tyler Draper MD Work Phone: Hematology/Oncology Comment on above: Orders Start: 08-25-2024 End: 08-25-2024 ambulatory Pito Patterson Facility:[facility] Katerina Start: 08-04-2024 End: 08-04-2024 ambulatory CRYS NORTHEIM Not Available Start: 08-04-2024 End: 08-04-2024 Office outpatient visit 15 minutes Crys Taylor PA Work Phone: [facility] Comment on above: Capillary angioma (P rimary Dx); Melanocytic nevus of trunk; Seborrheic keratosis; Actinic keratosis; History of SCC (squamous cell carcinoma) of skin; Lentigo simplex Start: 07-13-2024 End: 07-13-2024 ambulatory MARKUS CERNA Facility:[facility] Start: 06-20-2024 End: 06-20-2024 Bamboo flowsheet Connor [...] flowsheet Connor Crawley DO Work Phone: [facility] Start: 06-09-2024 End: 06-09-2024 Postop follow up [...] surgery center MD Pito Patterson Work Phone: [facility] [place] Start: 06-01-2024 End: 06-01-2024 ambulatory MD Pito Patterson Work Phone: [facility] Work Phone: Start: 05-31-2024 End: 05-31-2024 Office [...] Start: 05-17-2024 End: 05-17-2024 ambulatory Pito Patterson Facility:[facility] Start: 05-13-2024 End: 05-13-2024 ambulatory [facility] Start: 05-03-2024 End: 05-03-2024 Bamboo flowsheet [...] Start: 04-29-2024 End: 04-29-2024 ambulatory TYLER DRAPER Facility:[facility] Start: 04-29-2024 End: 04-29-2024 Subsequent hospital visit by physician Arrival Time Radiology Work Phone: [facility]iology [facility] Comment on above: History of lymphoma [Z85.72] Start: 04-26-2024 End: 04-26-2024 ambulatory CONNOR [facility] Start: 04-22-2024 End: 04-22-2024 ambulatory Oni MCKEON Facility:[facility] Start: 04-22-2024 End: 04-22-2024 Patient encounter procedure Oni MCKEON [facility] Start: 04-19-2024 End: 04-19-2024 Patient encounter procedure Tyler Draper MD Work Phone: Hematology/Oncology Start: 04-19-2024 End: 04-19-2024 ambulatory Tyler Draper MD Work Phone: Hematology/Oncology Comment on above: 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); History of lymphoma; Lymph node enlargement; Skin lesion of face Start: 04-19-2024 End: 04-26-2024 Telephone encounter [facility] Comment on above: Future Appointment Start: 02-02-2024 Telephone encounter Valerie Wallace Hematology/Oncology Comment on above: Results Start: 01-21-2024 End: 01-21-2024 ambulatory PITO PATTERSON Facility:[facility] Start: 10-19-2023 End: 10-19-2023 Lab Drop off Pito Patterson [facility] Start: 03-31-2023 End: 03-31-2023 Patient encounter procedure Oni MCKEON [facility] Start: 03-09-2023 End: 03-09-2023 Patient encounter procedure Oni MCKEON [facility] Start: 01-26-2023 End: 01-26-2023 Lab Drop off Marlys Olivia [facility] Start: 08-05-2022 Telephone encounter Aby Hernandez RN Hematology/Oncology Comment on above: Results Start: 07-24-2022 Telephone encounter Tyler cadena MD Work Phone: [facility] Comment on above: Appointment Start: [...] procedure Romeo Vidal Jr. [facility] [facility] Start: 09-24-2021 End: 09-25-2021 ambulatory [...] Evaluation and management of inpatient CRESCENCIO FLETCHER Facility:[facility] Procedures Date Procedure Procedure Detail Performing Clinician Start: 02-02-2025 CRYOTHERAPY SKIN LESION Crys Taylor PA Work Phone: Start: 11-15-2024 Ct thorax w/contrast material Tyler Draper MD Work Phone: Start: 11-15-2024 Blood count complete auto&auto difrntl wbc Arabella Nalini ARRANGER ASSEMBLER.ACCOUNT RESOLUTION SPECIALIST Work Phone: Start: 08-04-2024 CRYOTHERAPY SKIN LESION [...] on above: Performed By: #### P SAD ####[facility] [id number] [place], [place] [address]Mm. Trevor Nichols Start: 06-28-2020 INSERT PACE. DUAL [...] DTaP,Tdap,Td Vaccine (2 - Td or Tdap) [facility] Start: 11-16-2027 Diabetes Screening Diabetes Screening [facility] Start: 04-19-2027 Diabetes Screening Diabetes Screening [facility] Start: 01-20-2027 Diabetes Screening Diabetes Screening [facility] Start: 08-03-2025 End: 08-03-2025 Patient encounter procedure 08/03/2025 1:10 PM EST Office Visit [facility] [address] [place] [address] Crys Taylor PA [address] [place] [address] [facility] Start: 07-18-2025 DIABETES SCREEN DIABETES SCREEN [facility] Start: 05-29-2025 End: 05-29-2025 Follow-up encounter 05/29/2025 3:00 PM EDT Visit (SP) Office Hematology/Oncology [address] [place] [address] Ginger Bean APRN.ACCOUNT RESOLUTION SPECIALIST [address] [place] [address] 6 month follow up / BRM pt Hematology/Oncology Comment on above: 6 month follow up / BRM pt Start: 05-22-2025 End: 05-22-2025 Patient encounter procedure 05/22/2025 3:30 PM EDT Office Visit [facility] [address] [place] [address] 6 month lab [facility] Comment on above: 6 month lab Start: 02-02-2025 End: 02-02-2025 Patient encounter procedure [facility] Comment on above: Arrived Start: 01-09-2025 DIABETES SCREEN DIABETES SCREEN [facility] Start: 11-21-2024 End: 11-21-2024 Follow-up encounter 11/21/2024 3:20 PM EDT Visit (SP) Office Hematology/Oncology [address] [place] [address] Tyler Draper MD [address] [place] [address] 6 Month follow up with lab Hematology/Oncology Comment on above: 6 Month follow up with lab Start: 11-21-2024 End: 11-21-2024 Patient encounter procedure 11/21/2024 3:00 PM EDT Office Visit [facility] [address] [place] [address] 6 Month follow up with lab [facility] Comment on above: 6 Month follow up with lab Start: 11-15-2024 End: 02-14-2025 CBC W Auto Differential panel - Blood COMPLETE BLOOD COUNT AND DIFFERENTIAL Lab Routine Diffuse large B-cell lymphoma, unspecified body region (HCC) Expected: 11/15/2024 (Approximate), Expires: 02/14/2025 [facility] Comment on above: Expected: 11/15/2024 (Approximate), Expi res: 02/14/2025 Start: 11-15-2024 End: 02-14-2025 Comprehensive metabolic 2000 panel - Serum or Plasma COMPREHENSIVE METABOLIC PANEL Lab Routine Diffuse large B-cell lymphoma, unspecified body region (HCC) Expected: 11/15/2024 (Approximate), Expires: 02/14/2025 [facility] Work Phone: Comment on above: Expected: 11/15/2024 (Approximate), Expi res: 02/14/2025 Start: 11-15-2024 End: 07-10-2025 CT Chest W contrast IV CT CHEST W IVCON Radiology Routine Localized enlarged lymph nodes Expected: 11/15/2024, Expires: 07/10/2025 [facility] Work Phone: Comment on above: Expected: 11/15/2024, Expires: Start: 11-15-2024 End: 02-14-2025 MONOCLONAL PROTEIN, SERUM (BLOOD) [facility] Comment on above: Expected: 11/15/2024 (Approximate), Expi res: 02/14/2025 Start: 11-15-2024 End: 02-14-2025 PROTEIN ELECTROPHORESIS SERUM W/INTERP [facility] Comment on above: Expected: 11/15/2024 (Approximate), Expi res: 02/14/2025 Start: 11-15-2024 End: 11-15-2024 Patient encounter procedure Radiology Pet CT Comment on above: CT Chest with IVC Start: 11-09-2024 Covid-19 Vaccine (7 - Pfizer risk season) Covid-19 Vaccine (7 - Pfizer risk season) [facility] Start: 08-17-2024 Advance Directive Discussion Advance Directive Discussion [facility] Start: 08-04-2024 End: 08-04-2024 Patient encounter procedure 08/04/2024 1:00 PM EST Office Visit [facility] [address] [place] [address] Crys Taylor PA [address] [place] [address] [facility] Start: 07-07-2024 Covid-19 Vaccine ( season) Covid-19 Vaccine ( season) [facility] Start: 06-28-2024 End: 06-28-2024 Patient encounter procedure 06/28/2024 1:00 PM EST Office Visit [facility] [address] [place] [address] Chiki Malone MD [address] [place] [address] [facility] Start: 06-20-2024 End: 06-20-2024 Patient encounter procedure 06/20/2024 8:45 AM EST Office Visit [facility] [place] [address] [place] [phone] Connor Crawley DO [address] [place] [address] Arrived [facility] [place] Comment on above: Arrived Start: 06-17-2024 End: 06-17-2024 Patient encounter procedure 06/17/2024 1:15 PM EDT Office Visit [facility] [place] [address] [place] [phone] Connor Crawley DO [address] [place] [address] [facility] [place] Start: 06-09-2024 End: 06-09-2024 Patient encounter procedure [facility] [place] Comment on above: Arrived Start: 06-06-2024 End: 06-06-2024 Follow-up encounter 06/06/2024 1:45 PM EDT Visit (SP) Office Hematology/Oncology [address] [place] [address] [place] [address] Tyler Draper MD [address] [place] [address] 6 week follow up Hematology/Oncology Comment on above: 6 week follow up Start: 06-06-2024 End: 06-06-2024 Patient encounter procedure 06/06/2024 1:30 PM EDT Office Visit [facility] [address] [place] [address] 6 week follow up [facility] Comment on above: 6 week follow up Start: 06-01-2024 [facility] Start: 05-31-2024 End: 05-31-2024 Patient encounter procedure 05/31/2024 2:30 PM EDT Office Visit [facility] [address] [place] [phone] Connor Crawley S, DO [address] [place] [address] 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 [facility] Comment on above: Squamous cell cancer of skin of left vibha ek Start: 05-03-2024 End: 05-03-2024 Patient encounter procedure 05/03/2024 11:00 AM EDT Office Visit [facility] [address] [place] [address] Crys Taylor PA [address] [place] [address] Arrived [facility] Comment on above: Arrived Start: 04-29-2024 End: 04-29-2024 Patient encounter procedure 04/29/2024 1:30 PM EDT Appointment Radiology Pet CT [address] [place] [address] Comment on above: Pet scan Start: 04-19-2024 End: 04-19-2024 ambulatory 04/19/2024 2:30 PM EDT Visit (SP) Office Hematology/Oncology [address] [place] [address] Tyler Draper MD [address] [place] [address] 6 month lab Hematology/Oncology Comment on above: 6 month lab Start: 04-19-2024 End: 04-19-2024 Patient encounter procedure 04/19/2024 2:15 PM EDT Office Visit [facility] [address] [place] [address] 6 month lab [facility] Comment on above: 6 month lab Start: 04-19-2024 End: 07-19-2024 MONOCLONAL PROTEIN, SERUM (BLOOD) [facility] Comment on above: Expected: 04/19/2024, Expires: Start: 04-19-2024 End: 07-19-2024 PROT ELECT SERUM WITH CARSON AND INTERP [facility] Work Phone: Comment on above: Expected: 04/19/2024, Expires: Start: 04-17-2024 Covid-19 Vaccine ( season) Covid-19 Vaccine ( season) [facility] Start: 04-17-2024 Influenza vaccination Influenza Vaccine (#1) [facility] Start: 08-27-2023 Covid-19 Vaccine ( season) Covid-19 Vaccine ( season) [facility] Start: 08-17-2023 Advance Directive Discussion Advance Directive Discussion [facility] Start: 08-17-2023 Behavioral Health Screening Behavioral Health Screening [facility] Start: 01-09-2023 Adult depression screening assessment DEPRESSION SCREENING [facility] Start: 07-18-2022 End: 09-17-2022 CBC panel - Blood by Automated count CBC Lab Routine MGUS (monoclonal gammopathy of unknown significance) Expected: 07/18/2022 (Approximate), Expires: 09/17/2022 [facility] Work Phone: Comment on above: Expected: 07/18/2022 (Approximate), Expi res: 09/17/2022 Start: 07-18-2022 End: 09-17-2022 Comprehensive metabolic 2000 panel - Serum or Plasma COMP METABOLIC PANEL Lab Routine MGUS (monoclonal gammopathy of unknown significance) Expected: 07/18/2022 (Approximate), Expires: 09/17/2022 [facility] Work Phone: Comment on above: Expected: 07/18/2022 (Approximate), Expi res: 09/17/2022 Start: 07-18-2022 End: 09-17-2022 MONOCLONAL PROTEIN, SERUM (BLOOD) MONOCLONAL PROTEIN, SERUM (BLOOD) Lab Routine MGUS (monoclonal gammopathy of unknown significance) Expected: 07/18/2022 (Approximate), Expires: 09/17/2022 [facility] Work Phone: Comment on above: Expected: 07/18/2022 (Approximate), Expi res: 09/17/2022 Start: 07-18-2022 End: 09-17-2022 PROTEIN ELECTROPHORESIS SERUM W/INTERP PROTEIN ELECTROPHORESIS SERUM W/INTERP Lab Routine MGUS (monoclonal gammopathy of unknown significance) Expected: 07/18/2022 (Approximate), Expires: 09/17/2022 [facility] Work Phone: Comment on above: Expected: 07/18/2022 (Approximate), Expi res: 09/17/2022 Start: 05-06-2022 COVID-19 VACCINE (5 - Booster for Pfizer series) COVID-19 VACCINE (5 - Booster for Pfizer series) [facility] Start: 04-17-2022 Influenza vaccination INFLUENZA (#1) [facility] Start: 09-25-2021 COVID-19 VACCINE (4 - Booster for Pfizer series) COVID-19 VACCINE (4 - Booster for Pfizer series) [facility] Start: 08-17-2021 ADVANCE DIRECTIVE DISCUSSION ADVANCE DIRECTIVE DISCUSSION [facility] Start: 08-17-2021 DEPRESSION ASSESSMENT DEPRESSION ASSESSMENT [facility] Start: 2007 RSV Vaccine (1 - 1-dose 60+ series) RSV Vaccine (1 - 1-dose 60+ series) [facility] Start: 1997 SHINGRIX VACCINE (1 of 2) SHINGRIX VACCINE (1 of 2) [facility] Start: 1992 COLOGUARD (FIT-DNA) COLOGUARD (FIT-DNA) [facility] Start: 1992 Colonoscopy COLONOSCOPY [facility] Start: 1992 COLORECTAL CANCER SCREENING COLORECTAL CANCER SCREENING [facility] Start: [address] COLONOGRAPHY [facility] Start: 1992 FECAL OCCULT BLOOD FECAL OCCULT BLOOD [facility] Start: 1992 SIGMOIDOSCOPY SIGMOIDOSCOPY [facility] Start: 1982 LIPID SCREEN LIPID SCREEN [facility] Start: 1966 SHINGRIX VACCINE (1 of 2) SHINGRIX VACCINE (1 of 2) [facility] Start: 1966 Urine microalbumin profile DTAP,TDAP,TD (1 - Tdap) [facility] Start: 1965 Anxiety Screening Anxiety Screening [facility] Start: 1965 Depression Screening Depression Screening [facility] Start: 1965 HEPATITIS C SCREENING HEPATITIS C SCREENING [facility] Start: 1965 Hepatitis C screening Hepatitis C Screening [facility] Start: 1947 ABDOMINAL AORTIC ANEURYSM SCREENING ABDOMINAL AORTIC ANEURYSM SCREENING [facility] Start: 1947 Medicare Annual Wellness (AWV) Medicare Annual Wellness (AWV) [facility] CBC W Auto Different ial panel - Blood CBC + DIFF Lab Routine B12 deficiency Diffuse large B-cell lymphoma, unspecified body region (HCC) 01/09/2022 1:40 PM EDT [facility] Work Phone: Dermatopathology exam Dermatopat hology exam Pathology and Cytology Timed Neoplasm of unspecified behavior of bone, soft tissue, and skin Release Upon Ordering for 1 Occurrences starting 05/03/2024 [facility] Work Phone: Comment on above: Release Upon Ordering for 1 Occurrences starting 05/03/2024 End: 11-15-2024 IMMUNOFIXATION SCREEN, SERUM [facility] Comment on above: Once for 1 Occurrences starting 11/16/19 until 11/15/2024 End: 11-15-2024 IMMUNOGLOBULINS,IGG,IGA,I GM [facility] Comment on above: Once for 1 Occurrences starting 11/16/19 until 11/15/2024 End: 11-15-2024 KAPPA/ARDON,FREE,SER [facility] Comment on above: Once for 1 Occurrences starting 11/16/19 until 11/15/2024 Patient Education Know your Meds [facility] Work Phone: Patient referral [facility] Work Phone: End: 05-19-2025 PET+CT Guidance for localization of tumor of Skull base to mid-thigh-- W 18F-FDG IV NM PET/CT SKULL-THIGH SUBSEQUENT Radiology Routine History of lymphoma Lymph node enlargement 1 Occurrences starting 04/19/2024 until 05/19/2025 [facility] Comment on above: 1 Occurrences starting 04/19/2024 until 05/19/2025 PET+CT Guidance for localization of tumor of Skull base to mid-thigh-- W 18F-FDG IV NM PET/CT SKULL-THIGH SUBSEQUENT Radiology Routine History of lymphoma Lymph node enlargement 04/29/2024 3:28 PM EDT [facility] Work Phone: End: 11-15-2024 PROTEIN ELECTROPHORESIS SERUM (P) [facility] Work Phone: Comment on above: Once for 1 Occurrences starting 11/16/19 until 11/15/2024 [facility] Immunizations Immunization Date Immunization Notes Care Provider [facility] 05-12-2024 influenza, high dose seasonal, preservative-free Connor Crawley DO Work Phone: [facility] 05-12-2024 SARS-CoV-2 mRNA (tozinameran 5y-11y) vaccine Marlys Olivia [facility] Comment on above: Result Comment: COvi d 19 mRNA, LN-S pfizer trus sucrose 05-12-2024 influenza virus vaccine, unspecified formulation Connor Crawley DO Work Phone: [facility] 03-21-2024 canakinumab Oni MCKEON [facility] Comment on above: Result Comment: RSV 03-21-2024 respiratory syncytia l virus (RSV) vaccine, adjuvanted (AREXVY) Tyler Draper MD Work Phone: [facility] 03-21-2024 RSV vaccine preF3, recombinant Marlys Corwin [facility] 07-02-2023 SARS-CoV-2 mRNA (tozinameran 5y-11y) vaccine Pito Patterson [facility] Comment on above: Result Comment: covi d 19 eneida sucrose [facility] 05-11-2023 influenza, high dose seasonal, preservative-free Pito Patterson [facility] 05-11-2023 influenza virus vaccine, unspecified formulation Tyler Draper MD Work Phone: [facility] 03-11-2022 SARS-CoV-2 mRNA (imlqwcesqyd-dosi-archa se) vaccine Marlys Corwin [facility] 06-25-2021 SARS-CoV-2 (COVID-19 ) mRNA BNT-162b2 vax Marlys Corwin [facility] 05-24-2021 influenza (HD-IIV4) vaccine, age 65+ yr, high dose, quadrivalent, PF (FLUZONE HIGH-DOSE) Tyler Draper MD Work Phone: [facility] 05-24-2021 influenza virus vaccine, unspecified formulation Marlys Corwin [facility] 11-13-2020 COVID-19 vaccine, ag e 12+ yr (PFIZER-BIONTECH - PURPLE TOP) Hosea Herrera MD Work Phone: [facility] 10-22-2020 COVID-19 vaccine, ag e 12+ yr (PFIZER-BIONTECH - PURPLE TOP) Hosea Herrera MD Work Phone: [facility] 07-24-2020 zoster vaccine recombinant Marlys Corwin [facility] 07-22-2020 zoster vaccine recombinant Tyler Draper MD Work Phone: [facility] 05-09-2020 influenza (HD-IIV4) vaccine, age 65+ yr, high dose, quadrivalent, PF (FLUZONE HIGH-DOSE) Tyler Draper MD Work Phone: [facility] 05-09-2020 influenza virus vaccine, unspecified formulation Marlys Corwin [facility] 05-09-2020 tetanus toxoid, redu juvencio diphtheria toxoid, and acellular pertussis vaccine, adsorbed Marlys Corwin [facility] 05-09-2020 zoster vaccine recombinant Marlys Corwin [facility] 04-16-2019 influenza virus vaccine, unspecified formulation Marlys Corwin [facility] 04-16-2019 Seasonal trivalent influenza vaccine, adjuvanted, preservative free Tyler Draper MD Work Phone: [facility] 05-25-2018 influenza nasal, unspecified formulation Tyler Draper MD Work Phone: [facility] 05-25-2018 influenza virus vaccine, unspecified formulation Marlys Corwin [facility] 05-25-2018 influenza, injectabl e, quadrivalent, preservative free Hosea Herrera MD Work Phone: [facility] 05-25-2018 pneumococcal polysaccharide vaccine, 23 valent Hosea Herrera MD Work Phone: [facility] 04-26-2018 influenza nasal, unspecified formulation Tyler Draper MD Work Phone: [facility] 04-26-2018 influenza virus vaccine, unspecified formulation Marlys Corwin [facility] 04-26-2018 influenza, high dose seasonal, preservative-free Hosea Herrera MD Work Phone: [facility] 04-26-2018 pneumococcal polysaccharide vaccine, 23 valent Hosea Herrera MD Work Phone: [facility] 08-04-2017 influenza nasal, unspecified formulation Tyler Draper MD Work Phone: [facility] 08-04-2017 influenza virus vaccine, unspecified formulation Marlys Appiahab [facility] 08-04-2017 influenza, high dose seasonal, preservative-free Hosea Herrera MD Work Phone: [facility] 08-04-2017 pneumococcal conjuga te vaccine, 13 valent Hosea Herrera MD Work Phone: [facility] influenza vaccine qs 240 mcg, Patients 65 years and older,, PF, (FLUZONE HIGHDOSE QUAD 20-21 PF) 240 mcg/0.7 mL injection Hosea Herrera MD Work Phone: [facility] Comment on above: Fluzone High-Dose Qu ad 2020-21 (PF) 240 mcg/0.7 mL IM syringe PHARMACY ADMINISTERED influenza vaccine qs 240 mcg, Patients 65 years and older,, PF, (FLUZONE HIGHDOSE QUAD 20-21 PF) 240 mcg/0.7 mL injection Tyler Draper MD Work Phone: [facility] Comment on above: Fluzone High-Dose Qu ad 2020-21 (PF) 240 mcg/0.7 mL IM syringe PHARMACY ADMINISTERED influenza vaccine qs 240 mcg, Patients 65 years and older,, PF, (FLUZONE HIGHDOSE QUAD 20-21 PF) 240 mcg/0.7 mL injection Valerie Mayes RN [facility] influenza vaccine qs 240 mcg, Patients 65 years and older,, PF, (FLUZONE HIGHDOSE QUAD 20-21 PF) 240 mcg/0.7 mL injection Tyler Draper MD Work Phone: [facility] influenza vaccine qs 240 mcg, Patients 65 years and older,, PF, (FLUZONE HIGHDOSE QUAD 20-21 PF) 240 mcg/0.7 mL injection Tyler Draper MD Work Phone: [facility] influenza vaccine qs 240 mcg, Patients 65 years and older,, PF, (FLUZONE HIGHDOSE QUAD 20-21 PF) 240 mcg/0.7 mL injection Arrival Radiology Work Phone: [facility] Payers Date Payer Category Payer Medicare (Managed Care) 1.2. [id number] 2022 Private Health Insurance [id number] 2014 Medicare AETNA MEDICARE A ETNA MEDICARE PPO [id number] 2014-Present [phone] [address] [place] [address] PPO [id number] 2012 Medicare [id number]. [id number] 2012 Medicare [id number] 1959 Medicare [id number] 1959 Private Health Insurance [id number] Self-pay 1947 Unknown [id number] 2.16.840.1.594736.3.579.2. 647 1947 Unknown [id number] 2.16.840.1.944253.3.579.2. 593 1947 Unknown [id number] 2.16.840.1.488431.3.579.2. 593 1947 Unknown [id number] 2.16.840.1.287694.3.579.2. 593 1947 Unknown [id number] 2.16.840.1.439533.3.579.2. 593 1947 Unknown [id number] 2.16.840.1.228220.3.579.2. 593 1947 Unknown [id number] 2.16.840.1.505539.3.579.2. 593 1947 Unknown [id number] 2.16.840.1.501134.3.579.2. 593 1947 Unknown [id number] 2.16.840.1.382758.3.579.2. 593 1947 Unknown [id number] 2.16.840.1.930834.3.579.2. 593 1947 Unknown [id number] 2.16.840.1.203829.3.579.2. 593 1947 Unknown [id number] 2.840.1.399747.3.579.2. 593 1947 Unknown [id number] 2.16840.1.982864.3.579.2. 593 1947 Unknown [id number] 2.16.840.1.086896.3.579.2. 593 1947 Unknown [id number] 2.16840.1.940016.3.579.2. 593 1947 Unknown [id number] 2.840.1.500130.3.579.2. 593 1947 Unknown [id number] 2.16.840.1.664886.3.579.2. 593 1947 Unknown [id number] 2.16.840.1.413472.3.579.2. 593 1947 Unknown [id number] 2.16.840.1.235890.3.579.2. 593 1947 Unknown [id number] 2.16.840.1.331456.3.579.2. 593 1947 Unknown [id number] 2.16.840.1.474879.3.579.2. 593 1947 Unknown [id number] 2.16.840.1.170546.3.579.2. 1259 1947 Unknown [id number] 2.16.840.1.958205.3.579.2. 1259 1947 Unknown [id number] 2.16.840.1.950644.3.579.2. 125 1947 Unknown [id number] 2.16.840.1.719399.3.579.2. 125 1947 Unknown [id number] 2.16.840.1.356551.3.579.2. 125 1947 Unknown [id number] 2.16.840.1.599112.3.579.2. 1258 1947 Unknown [id number] 2.840.1.739276.3.579.2. 1947 Unknown [id number] 2.16.840.1.042559.3.579.2. 1947 Unknown [id number] 2.16.840.1.308250.3.579.2. 1947 Unknown [id number] 2.16840.1.376231.3.579.2. 72 1947 Unknown [id number] 2.16840.1.759624.3.579.2. 72 1947 Unknown [id number] 2.16.840.1.246284.3.579.2. 72 1947 Unknown [id number] 2.16.840.1.845780.3.579.2. 1947 Unknown [id number] 2.16.840.1.582226.3.579.2. 72 1947 Unknown [id number] 2.16840.1.324294.3.579.2. 727 1947 Unknown [id number] 2.16.840.1.027988.3.579.2. 727 1947 Unknown [id number] 2.16.840.1.591820.3.579.2. 727 1947 Unknown [id number] 2.16.840.1.649681.3.579.2. 727 1947 Unknown [id number] 2.16.840.1.474347.3.579.2. 72 Medicare Medicare Outpatient [id number] Unknown [id number] 2.16.840.1.796356.3.579.2. 593 Unknown Karl BC/BS [id number] Unknown [id number] 2.16.840.1.455316.3.579.2. 531 Social History Date Type Detail Facility Start: 11-19-2021 End: 02-15-2025 Tobacco smoking status Ex-smoker (finding) [facility] Comment on above: Patient states he sm oked cigarettes, 1 PPD from about 22 years old until about 42 years old. denies use. Former s moker. Quit 1987. Start: 07-30-2023 End: 08-04-2024 Sex Assigned At Male [facility] Start: 09-06-1968 End: 09-06-1988 History of tobacco use Current smoker [facility] Start: 09-06-2012 End: 08-04-2024 Cigarettes smoked current (pack per day) - Reported 1 [facility] Start: 09-06-2012 End: 05-03-2024 Tobacco use and exposure Smokeless tobacco non-user [facility] Start: 01-09-2022 End: 11-21-2024 Alcohol intake Current drinker of alcohol (finding) [facility] Start: 04-05-2019 History SDOH Alcohol Comment rare [facility] Start: 1945 Sex Assigned At Not on file [facility] Start: 12-30-2021 End: 01-09-2022 Exposure to SARS-CoV-2 (event) Not sure [facility] Start: 09-06-1968 End: 09-06-1988 History of tobacco use Cigarette Smoker [facility] History of tobacco use Passive smoker [facility] Tobacco smoking status Never [facility] [place] Comment on above: Patient states he sm oked cigarettes, 1 PPD from about 22 years old until about 42 years old. denies use. Former s moker. Quit 1987. Start: 05-03-2024 End: 02-02-2025 Alcoholic beverage intake Defer [facility] Start: 1945 Sex Assigned At Male F [facility] consumption unknown [facility] Sexual Orientation [facility] Start: 11-01-2016 Sex Male (finding) [facility] NEGATED: Highlighted rowStart: NINF History of tobacco use Passive smoker [facility] Goals Date Patient Goal Desired Activity /State Functional Status Date Assessment Result Facility 04-22-2024 Functional Status N/A [facility] 03-09-2023 Functional Status N/A [facility] 02-19-2015 Are you deaf, or do you have serious difficulty hearing No 02/19/2015 11:13 AM Otilia Mejía No [facility] 02-19-2015 Are you blind, or do you have serious difficulty seeing, even when wearing glasses No 02/19/2015 11:13 AM Otilia Mejía No [facility] 02-19-2015 Do you have serious difficulty walking or climbing stairs No 02/19/2015 11:13 AM Otilia Mejía No [facility] 02-19-2015 Do you have difficul ty dressing or bathing Yes 02/19/2015 11:13 AM Otilia Mejía Yes [facility] 02-20-2014 Because of a physica l, mental, or emotional condition, do you have difficulty doing errands alone such as visiting a physician's office or shopping No 02/20/2014 11:24 AM EDT Mario Otilia No [facility] Mental Status Date Assessment Result Facility 02-19-2015 Because of a physica l, mental, or emotional condition, do you have serious difficulty concentrating, remembering, or making decisions No 02/19/2015 11:13 AM EDT Mario Otilia No [facility] Clinical Notes 11-19-2021 to 02-15-2025 MARY Simmons [...] Follow these instructions at home: ??? Take mduh-vdu-xjrnzra and prescription medicines only as told by [...] provider. Document Revised: 08/05/2022 Document Reviewed: 08/05/2022 College [employer] Patient Education ? 2023 [employer]. Screening for Type 2 Diabetes A screening test for type 2 diabetes (type 2 diabetes mellitus) is a blood test to measure your blood sugar (glucose) level. This test is done to check for early signs of diabetes, before you develop symptoms (more content not included)... [facility] 02-02-2025 History of Present illness Narrative [...] limited to risks of scarring, darker or oil field tester pigmentary changes, recurrence, incomplete removal and infection. [...] Visit: 6 months documented in this encounter [facility] 11-24-2024 Telephone encounter Note Pt notified of BRM message below. She is agreeable to follow up with PCP, to discuss US. She denies any questions, needs or concerns at this time. Labs faxed to PCP, Dr Navarro Mayes RN [facility] 11-24-2024 Miscellaneous Notes Pt notified of BRM message below. She is agreeable to follow up with PCP, to discuss US. She denies any questions, needs or concerns at this time. Labs faxed to PCP, Dr Navarro Mayes, RN documented in this encounter [facility] 11-21-2024 Note HNO ID: [id number] Author: YOLANDA MONTAGUE MA Service: ? Author Type: Advertising Rep Type: Progress Notes Filed: 11/23/2024 09:37 Note Text: Pt very short of breath. Has oxygen at home. But declined using our oxygen.Yolanda Montague MA [facility] 11-21-2024 History of Present illness Narrative Pt very short of breath. Has oxygen at home. But declined using our oxygen.Yolanda Montague MA PATIENT NAME: Chiki FERNANDON: [id number] DATE: 11/21/2024 PRIMARY CARE PHYSICIAN: Dr. Pito [...] influenza A infection and was hospitalized at [facility]. Apparently his symptoms were severe enough [...] or inguinal regions. PATHOLOGY: 06/01/2024 Skin [place] A. Skin lesion from left cheek: Recent [...] active disease. 02/01/2024 Bilateral lower extremity Doppscan ([facility]) The RIGHT lower extremity was imaged, [...] Trans x 2.56 cm Sagittal. 12/31/2023 CXR ([facility]) IMPRESSION: 1. No significant interval change and no new or worsening airspace disease. No pleural effusion or pneumothorax. 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 2. Stable cardiomediastinal silhouette. 3. Left chest wall CIED with leads in the right atrium and right ventricle. 4. Unchanged compression deformity in the mid thoracic spine. 09/24/2021 Skeletal bone survey ([facility]) No lytic lesions suggestive of multiple [...] random TRUS prostate biopsies with prostate adenocarcinoma, [place] 4+3, 3 cores involved out of 9, [...] PCP and pulmonary (Dr. Mayra Berg at [facility]). 6. History of hypothyroidism The patient [...] Dr. Jb Patterson, PCP Dr. Mayra Berg, Delivery Architect at [facility] documented in this encounter [facility] 11-19-2024 Note HNO ID: [id number] Author: TYLER DRAPER MD Service: ? Author [...] influenza A infection and was hospitalized at [facility]. Apparently his symptoms were severe enough [...] Ears: negative findings (more content not included)... [facility] 11-15-2024 History of Present illness Narrative Radiology [...] PATIENT PRESENTS WITH AN IMPLANTABLE OR ATTACHED WEBMETHODS ARCHITECT: No RADIOLOGY DEPARTMENT: CT; Exam(s) Completed: Chest PERIPHERAL IV DATA: Site assessment: Clean,Dry and Intact, Site disposition Discontinued SIGNED BY: RT Sonya(R) November 15, 2024 3:18 PM documented in this encounter [facility] 11-15-2024 Note HNO ID: [id number] Author: BROOK DONALDSON RT(R) Service: ? Author [...] PATIENT PRESENTS WITH AN IMPLANTABLE OR ATTACHED WEBMETHODS ARCHITECT: No RADIOLOGY DEPARTMENT: CT; Exam(s) Completed: Chest PERIPHERAL IV DATA: Site assessment: Clean,Dry and Intact, Site disposition Discontinued SIGNED BY: RT Sonya(Melodie) November 15, 2024 3:18 PM [facility] 11-15-2024 Note HNO ID: [id number] Author: MEG MCFARLAND RN Service: ? Author [...] DATE: November 15, 2024 TIME: 2:32 PM [facility] 10-21-[address] Cardiology - [facility] Subjective Chiki Juarez is a 79 y.o. year old male patient being seen for follow up [facility]. EKG from the ED was [...] of COPD and is currently followed at [facility]. He takes multiple inhalers. In June [...] of breath. He recently was seen at [facility] pulmonary and was recommended to follow-up [...] daily. He was seen by cardiology at [facility] who also agreed that the shortness of breath is not of a cardiac etiology. His checker was treating him with steroids. He also underwent walk test in September 2023 during which his oxygen dropped significantly. He previously underwent further evaluation at [facility] pulmonology and his follow-up PFTs showed improvement. He also had upper and lower extremity duplex venous ultrasounds and VQ scan of the lungs in January 2024 which were negative. He was admitted to the hospital at [place] on 10/11/2024 due to COPD exacerbation and [...] cough and shortnes (more content not included)... [facility] 10-14-2024 Telephone encounter Note Please sign pended labs for 6 month f/u if agreeable-will draw with CT 1 week prior Thank You! Gloria Weinberg, RN [facility] 10-14-2024 Miscellaneous Notes Please sign pended labs for 6 month f/u if agreeable-will draw with CT 1 week prior Thank You! Gloria Weinberg RN documented in this encounter [facility] 08-04-2024 History of Present illness Narrative Skin [...] limited to risks of scarring, darker or oil field tester pigmentary changes, recurrence, incomplete removal and infection. [...] months, skin check documented in this encounter [facility] 06-20-2024 History of Present illness Narrative Subjective [...] OP CDI policy. Malignant neoplasm of prostate ([facility]) 05/21/2023 Mass of leg 04/15/2024 MGUS (monoclonal gammopathy of unknown significance) 09/09/2023 Microscopic hematuria 05/21/2023 Mixed hyperglyceridemia ([facility]) 05/23/2022 Moderate persistent asthma without complication ([facility]) 05/31/2024 Nasal congestion 05/21/2023 Neuropathy, arm 05/21/2023 Obesity due to excess calories 05/31/2024 JUANA (obstructive sleep apnea) 04/15/2024 Other chronic pain 05/31/2024 Poor urinary stream 05/21/2023 Prostate nodule 05/21/2023 Pulmonary hypertension ([facility]) 07/02/2023 Noted in 05/21/2023 [place] page 1, added per outpatient CDI policy. 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[facility]) 07/02/2023 Recurrent pneumonia 07/17/2021 Severe obesity (BMI 35.0-39.9) with comorbidity ([facility]) 08/03/2020 Ventral hernia 05/21/2023 Wheezing 07/02/2023 Current [...] Partner Violence: Unknown (10/08/2023) Received from [facility] [place] [facility] Fear of Current [...] of distress Assessment/Plan documented in this encounter [facility] 06-13-2024 Telephone encounter Note Patient is scheduled 11/15/24 at 1:30 PM Shea Kolb PSS [facility] 06-13-2024 Miscellaneous Notes Patient is scheduled 11/15/24 at 1:30 PM Shea Kolb PSS notified and transferred to [facility] to schedule CT as recommended prior to return visit with BRM. Valerie Mayes RN A voicemail was left on Chiki's phone to return our call to schedule a CT for November. Shea Kolb PSS Dr Mayra Berg, [facility] called and spoke with BRM yesterday [...] Valerie Mayes RN documented in this encounter [facility] 06-13-2024 Telephone encounter Note notified and transferred to PSS to schedule CT as recommended prior to return visit with BRM. Valerie Mayes RN [facility] 06-10-2024 Telephone encounter Note A voicemail was left on Chiki's phone to return our call to schedule a CT for November. Shea Kolb PSS [facility] 06-10-[address] Mayra Berg, [facility] called and spoke with BRM yesterday [...] to return visit 11/21/24 Valerie Mayes RN [facility] 06-09-2024 History of Present illness Narrative Subjective [...] for 10 days. documented in this encounter [facility] 06-05-2024 Note HNO ID: [id number] Author: TYLER DRAPER MD Service: ? Author [...] infection Head: normal (more content not included)... [facility] 06-05-2024 History of Present illness Narrative PATIENT [...] active disease. 02/01/2024 Bilateral lower extremity Doppscan ([facility]) The RIGHT lower extremity was imaged, [...] Trans x 2.56 cm Sagittal. 12/31/2023 CXR ([facility]) IMPRESSION: 1. No significant interval change and no new or worsening airspace disease. No pleural effusion or pneumothorax. 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 2. Stable cardiomediastinal silhouette. 3. Left chest wall CIED with leads in the right atrium and right ventricle. 4. Unchanged compression deformity in the mid thoracic spine. 09/24/2021 Skeletal bone survey ([facility]) No lytic lesions suggestive of multiple [...] random TRUS prostate biopsies with prostate adenocarcinoma, [place] 4+3, 3 cores involved out of 9, [...] PCP and pulmonary (Dr. Mayra Berg at [facility]). 6. History of hypothyroidism Continue management [...] Tyler Draper MD CC: Dr. Mayra Berg, Delivery Architect at [facility] documented in this encounter [facility] 05-31-2024 History of Present illness Narrative Subjective [...] Partner Violence: Unknown (10/08/2023) Received from [facility] Safety & Environment Fear of Current or [...] He fully understands. documented in this encounter [facility] 05-17-2024 Note Patient Education Nutrition BMI for [...] for Disease Control and Prevention: cdc.gov ? [place] [employer]: heart.org ? National Heart, Lung, and Blood [place]: nhlbi.nih.gov This information is not intended to replace advice given to you by your health care provider. Make sure you discuss any questions you have with your health care provider. Document Revised: 04/23/2023 Document Reviewed: 04/16/2023 College Snack Attack Patient Education ? 2023 [employer]. [facility] 05-13-[address] Cardiology - [facility] Subjective Chiki Juarez is a 79 y.o. year old male patient being seen for 6 mo follow up c,CANO, hyperlipidemia, and complete AV block s/p PPM. His device was interrogated a few weeks ago in the office. He has completed pulmonary rehab. Says his SOB has slightly improved since last visit in October 2023. His checker at [facility] told him his PFT's [...] of COPD and is currently followed at [facility]. He takes multiple inhalers. In June [...] of breath. He recently was seen at [facility] pulmonary and was recommended to follow-up [...] daily. He was seen by cardiology at [facility] who also agreed that the shortness of breath is not of a cardiac etiology. His checker was treating him with steroids. He also underwent walk test in September 2023 during which his oxygen dropped significantly. He recently underwent further evaluation at [facility] pulmonology and his follow-up PFTs showed [...] Objective Visit Vitals (more content not included)... [facility] 05-03-2024 History of Present illness Narrative Images [...] limited to risks of scarring, darker or oil field tester pigmentary changes, recurrence, incomplete removal and infection. [...] mo th FBSE documented in this encounter [facility] 04-29-2024 History of Present illness Narrative Radiology [...] 1333 PATIENT DISCHARGED TO: Ambulatory patient, left [place] department area. A Diagnostic radioactive procedure has taken place, with no further precautions necessary other than routine body substance precautions. More information regarding radiation safety can be found using this link: [email or web address] [email or web address] [email or web address] SIGNATURE: RT Sonya(R) PATIENT NAME: Chiki Juarez DATE: April 29, 2024 TIME: 1:44 PM PAGER/CONTACT #: documented in this encounter [facility] 04-29-2024 Note HNO ID: [id number] Author: GLORIA WEINBERG RN Service: ? Author [...] DATE: April 29, 2024 TIME: 1:35 PM [facility] 04-29-2024 Note HNO ID: [id number] Author: BROOK DONALDSON RT(R) Service: ? Author [...] 29, 2024 TIME: 1:44 PM PAGER/CONTACT #: [facility] 04-26-2024 Telephone encounter Note Patient is scheduled with MARY Simmons on 05/03/24 @ 11:00. [facility] 04-26-2024 Miscellaneous Notes Patient is scheduled with MARY Simmons on 05/03/24 @ 11:00. Records faxed to [facility]. Rhona: Information ready for you. Jennie Velasquez Please ref patient to [facility]. Dx Skin Lesion blaise facial area. Their office to call the patient to schedule/ Rhona, Please fax records Julius, Please follow up on this appt. documented in this encounter [facility] 04-22-2024 Hospital Discharge instructions Patient Education 04/22/2024 [...] treatment? Where to find more information The [place] [employer]: www.cancer.org [place] [employer]: www.auanet.org Contact a health care [...] provider. Document Revised: 01/27/2022 Document Reviewed: 01/27/2022 College Snack Attack Patient Education 2023 Be-Bound. Follow Up Care 03/09/2023 12:17:11 With:MIKE VENTURA, Oni Sewell, URL Address: [facility] [address] [place] [phone] When: Unknown [facility] 04-22-2024 Note Patient Education Oncology Prostate Cancer [...] Where to find more information ? The [place] [employer]: www.cancer.org ? [place] [employer]: www.auanet.org Contact a health care [...] of the rectum. (more content not included)... [facility] 04-20-2024 Telephone encounter Note Records faxed to [facility]. [facility] 04-20-2024 Telephone encounter Note Rhona: Information ready for you. Jennie Velasquez [facility] 04-19-2024 Telephone encounter Note Please ref patient to [facility]. Dx Skin Lesion blaise facial area. Their office to call the patient to schedule/ Rhona, Please fax records Julius, Please follow up on this appt. [facility] 04-18-2024 Note HNO ID: [id number] Author: TYLER DRAPER MD Service: ? Author [...] visit here he followed up with his checker at [facility] for 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 For [...] No date: COPD (chronic obstructive pulmonary disease) ([facility]) No date: COVID No date: Cystic fibrosis [...] itching. HEMATOLOGY/LYMPHOLOGY: Neg (more content not included)... [facility] 04-18-2024 History of Present illness Narrative PATIENT [...] visit here he followed up with his checker at [facility] for 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 For [...] date: Acute maxillary sinusitis No date: Cancer (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) No date: COVID No date: Cystic fibrosis gene carrier No date: Dysarthria following nontraumatic intracerebral hemorrhage No date: Hypothyroidism No date: Hypoxemia No date: Multiple myeloma ([facility]) No date: Pulmonary edema No date: Stroke ([facility]) No date: Thyroid disease Comment: aquired due [...] RADIOLOGY/OTHER STUDIES: 02/01/2024 Bilateral lower extremity Doppscan ([facility]) The RIGHT lower extremity was imaged, [...] Trans x 2.56 cm Sagittal. 12/31/2023 CXR ([facility]) IMPRESSION: 1. No significant interval change and no new or worsening airspace disease. No pleural effusion or pneumothorax. 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 2. Stable cardiomediastinal silhouette. 3. Left chest wall CIED with leads in the right atrium and right ventricle. 4. Unchanged compression deformity in the mid thoracic spine. 09/24/2021 Skeletal bone survey ([facility]) No lytic lesions suggestive of multiple [...] random TRUS prostate biopsies with prostate adenocarcinoma, [place] 4+3, 3 cores involved out of 9, [...] PCP and pulmonary (Dr. Mayra Berg at [facility]). 6. History of hypothyroidism Continue management [...] Tyler Draper MD CC: Dr. Mayra Berg, Delivery Architect at [facility] documented in this encounter [facility] 02-02-2024 Telephone encounter Note Pt informed of BRShopetti message and denies any questions, needs or concerns at this time. Appointment verified. Valerie Mayes RN [facility] 02-02-2024 Miscellaneous Notes Pt informed of BRM message and denies any questions, needs or concerns at this time. Appointment verified. Valerie Mayes RN ----- Message from Tyler Draper MD sent at 02/02/2024 8:08 AM EDT ----- Please inform the patient that his labs are stable. We will continue observation and see him back as scheduled. documented in this encounter [facility] 02-02-2024 Telephone encounter Note ----- Message from Tyler Draper MD sent at 02/02/2024 8:08 AM EDT ----- Please inform the patient that his labs are stable. We will continue observation and see him back as scheduled. [facility] 03-31-2023 Hospital Discharge instructions Patient Education 03/31/2023 [...] [facility] [address] [place] [address]- Business (1) When:03/31/2024 11:58:05 Comments:With a renal ultrasound [facility] 03-09-2023 Hospital Discharge instructions Patient Education [...] urethra. Follow these instructions at home: Take hidt-oap-wpjrdnd and prescription medicines only as told by [...] provider. Document Revised: 02/19/2022 Document Reviewed: 02/19/2022 College Snack [employer] Patient Education 2022 [employer]. Follow Up Care 02/13/2023 11:39:29 With:MIKE VENTURA, Oni Sewell, URL Address: [facility] [address] [place] [address]- [phone] When: Unknown Comments:schedule cysto and renal US1 yr w/ PSA [facility] [place] 08-05-2022 Miscellaneous Notes Informed pt of Dr Draper's message. Pt verbalized understanding and denies further needs at this time. Aby Hernandez RN ----- Message from Tyler Draper MD sent at 08/04/2022 12:29 PM EST ----- Please inform the patient that his PSA is stable at 0.26. We will continue as planned. Thanks, BRM documented in this encounter [facility] 07-25-2022 Miscellaneous Notes Spoke to [...] awhile please advise documented in this encounter [facility] 01-16-2022 History of Present illness [...] random TRUS prostate biopsies with prostate adenocarcinoma, [place] 4+3, 3 cores involved out of 9, [...] x2 and pneumonia, following pulmonology team at [facility]. He has a family history significant [...] with PET CR ?Bronchiectasis, follows pulmonology at [facility] Possible cystic fibrosis, follows pulmonology at [facility], genetic testing pending Previous surgeries include a pacemaker in 2019. No family history of hematologic or oncologic issues but significant for cystic fibrosis in brother and nephew; granddaughter is a carrier of cystic fibrosis. Patient lives in [place], [place] with his , Nicolasa. He has 4 children. He has a 10-dpan-pywf smoking history and quit in 1986. He [...] Thus, a bone marrow biopsy would not microsoft exchange administrator and it is okay to hold off [...] CC: Will Sherwood documented in this encounter [facility] 01-09-2022 History of Present illness [...] random TRUS prostate biopsies with prostate adenocarcinoma, [place] 4+3, 3 cores involved out of 9, [...] x2 and pneumonia, following pulmonology team at [facility]. He has a family history significant [...] with PET CR ?Bronchiectasis, follows pulmonology at [facility] Possible cystic fibrosis, follows pulmonology at [facility], genetic testing pending Previous surgeries include a pacemaker in 2020. No family history of hematologic or oncologic issues but significant for cystic fibrosis in brother and nephew; granddaughter is a carrier of cystic fibrosis. Patient lives in [place], [place] with his , Nicolasa. He has 4 children. He has a 18-mjzd-hagg smoking history and quit in 1986. He [...] Thus, a bone marrow biopsy would not microsoft exchange administrator and it is okay to hold off for now. PSA stable at 0.30. He will follow up with Dr. Sousa for his history of prostate cancer. Hosea Herrera MD I spent a total of 20 minutes on the date of the service which included preparing to see the patient, ynog-gn-xrzo patient care, completing clinical documentation, obtaining and/or reviewing separately obtained history, performing a medically appropriate examination, counseling and educating the patient/family/caregiver, ordering medications, tests, or procedures, independently interpreting results (not separately reported) and communicating results to the patient/family/caregiver. CC: Will Sherwood documented in this encounter [facility] 11-19-2021 Hospital Discharge instructions Patient [...] who: Are older than age 65. Are -[place]. Are obese. Have a family history of [...] cells. Follow these instructions at home: Take svwg-pao-svxjrxf and prescription medicines only as told by [...] 08/03/2006 Document Revised: 07/16/2018 Document Reviewed: 04/13/2017 [employer] Patient Education 2020 [employer]. Follow Up Care 10/30/2020 10:17:46 With:Young Manriquez MD, Romeo Valles, URO Address: [facility] [address], [place] [address]- [phone] When: Unknown [facility] Evaluation + Plan note Future Appointments Appointment Date:11/25/2022 10:15:00 AM Scheduled Provider:Romeo Vidal Jr., MD Location:[facility] Appointment Type:URO Office Visit [facility] Evaluation + Plan note Future Appointments Appointment Date:01/22/2024 11:00:00 AM Scheduled Provider: [facility] Type:FM Medicare Wellness Subsequent Diagnostic Tests PendingT3 Free 01/26/23 [facility] Evaluation + Plan note Future Appointments Appointment Date:03/24/2023 10:00:00 AM Scheduled Provider: Location:[facility] Appointment Type:Urology CALL PAT FT Appointment Date:03/31/2023 11:15:00 AM Scheduled Provider: Location:[facility] Appointment Type:Urology FT Appointment Date:01/22/2024 11:00:00 AM Scheduled Provider: Location:[facility] Appointment Type:FM Medicare Wellness Subsequent Appointment Date:03/14/2024 11:15:00 AM Scheduled Provider:Oni MCKEON MD [facility] Type:[facility]O Office Visit Diagnostic Tests PendingPSA Total 03/09/23 [facility] Evaluation + Plan note Future Appointments Appointment Date:01/22/2024 11:00:00 AM Scheduled Provider: [facility] Type:FM Medicare Wellness Subsequent Appointment Date:03/14/2024 11:15:00 AM Scheduled Provider:Oni MCKEON MD [facility] App[facility] Type:URO Office Visit [facility] Evaluation + Plan note Future Appointments Appointment Date:12/02/2023 01:00:00 PM Scheduled Provider:Pito Patterson MD Location:[facility] Appointment Type:FM Open Appointment Date:01/18/2024 01:00:00 PM Scheduled Provider:Pito Patterson MD Location:[facility] Appointment Type:FM Open Appointment Date:01/22/2024 11:00:00 AM Scheduled Provider: Location:[facility] Appointment Type: Medicare Wellness Subsequent Appointment Date:03/14/2024 11:15:00 AM Scheduled Provider:Oni MCKEON MD Location:[facility] Appointment Type:URO Office Visit [facility] Evaluation + Plan note Future Appointments Appointment Date:05/17/2024 10:00:00 AM Scheduled Provider:Pito Patterson MD Location:[facility] Appointment Type: Open Appointment Date:02/14/2025 08:00:00 AM Scheduled Provider: Location:[facility] Appointment Type: Medicare Wellness Subsequent Appointment Date:04/24/2025 09:45:00 AM Scheduled Provider:Oni MCKEON MD Location:[facility] Appointment Type:URO Office Visit Diagnostic Tests PendingPSA Total 04/22/24 [facility] Evaluation + Plan note Future Appointments Appointment Date:04/24/2025 09:45:00 AM Scheduled Provider:Oni MCKEON MD Location:[facility] Appointment Type:URO Office Visit Appointment Date:02/15/2026 09:30:00 AM Scheduled Provider: Location:[facility] Appointment Type: Medicare Wellness Subsequent Diagnostic Tests PendingHCV Antibody RFX to Quant PCR 02/16/25 [facility] Evaluation note Diagnosis MGUS (monoclonal gammopathy of unknown significance)- Primary Monoclonal paraproteinemia [facility] Diagnosis B12 deficiency- Primary Other B-complex deficiencies Diffuse large B-cell lymphoma, unspecified body region (HCC) documented [facility] Diagnosis MGUS (monoclonal gammopathy of unknown significance)- Primary Monoclonal paraproteinemia Macrocytic anemia Unspecified deficiency anemia [facility] Diagnosis MGUS (monoclonal gammopathy of unknown significance)- Primary Monoclonal paraproteinemia History of lymphoma Personal history of other lymphatic and hematopoietic neoplasm Lymph node enlargement Enlargement of lymph nodes Skin lesion of face Unspecified disorder of skin and subcutaneous tissue [facility] Diagnosis History of lymphoma Personal history of other lymphatic and hematopoietic neoplasm Lymph node enlargement Enlargement of lymph nodes [facility]* Diagnosis Squamous cell carcinoma of scalp- Primary Other malignant neoplasm of scalp and skin of neck 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 documented in this encounter [facility] HealthcareEvaluation noteNo assessment information availableUc Health Work Phone: Evaluation note* Diagnosis MGUS (monoclonal gammopathy of unknown significance)- Primary Monoclonal paraproteinemia History of lymphoma Personal history of other lymphatic and hematopoietic neoplasm History of prostate cancer Personal history of malignant neoplasm of prostate Skin lesion of face Unspecified disorder of skin and subcutaneous tissue [facility] Diagnosis Wound infection- Primary Posttraumatic wound infection not elsewhere classified Squamous cell carcinoma of scalp Other malignant neoplasm of scalp and skin of neck [facility] Diagnosis Localized enlarged lymph nodes- Primary Enlargement of lymph nodes documented [facility]* Diagnosis Squamous cell carcinoma of scalp- Primary Other malignant neoplasm of scalp and skin of neck Wound infection Posttraumatic wound infection not elsewhere classified Thyroid nodule (CMS/HCC) Nontoxic uninodular goiter [facility] Diagnosis Hemangioma of skin and subcutaneous tissue- Primary Neoplasm of unspecified behavior of bone, soft tissue, and skin Seborrheic keratosis Actinic keratosis documented in this encounter [facility] HealthcareEvaluation note* Diagnosis Capillary angioma- Primary Nevus, non-neoplastic Melanocytic nevus of trunk Benign neoplasm of skin of trunk, except scrotum Seborrheic keratosis Actinic keratosis History of SCC (squamous cell carcinoma) of skin Personal history of other malignant neoplasm of skin Lentigo simplex Other dyschromia [facility] Diagnosis Diffuse large B-cell lymphoma, unspecified body region (HCC)- Primary [facility] Diagnosis Localized enlarged lymph nodes Enlargement of lymph nodes Diffuse large B-cell lymphoma, unspecified body region (HCC) documented [facility] Diagnosis MGUS (monoclonal gammopathy of unknown significance)- Primary Monoclonal paraproteinemia History of prostate cancer Personal history of malignant neoplasm of prostate Acquired hypothyroidism Unspecified hypothyroidism documented [facility] this [facility] Diagnosis Melanocytic nevus of trunk- Primary Benign neoplasm of skin of trunk, except scrotum History of SCC (squamous cell carcinoma) of skin Personal history of other malignant neoplasm of skin Seborrheic keratosis Actinic keratosis Ayala angioma Other seborrheic dermatitis documented in this encounter [facility] HealthcareHospital course Narrative No data available for this section [facility] Hospital Discharge instructions No data available for this section [facility] Additional Instructions No exertional activity [...] or concerns Follow-up in the office as scheduledUc Health Work Phone: Progress note No data available for this section [facility] Summary Purpose Family History No Family History Records Found Relationship Condition Age at Onset Recorded Date/T ruma mother Malignant neoplasm of lung Unknown Unknown Advance Directives No Advanced Directives Records Found Advance Directive Response Recorded Date/ Time Advance Directives No June 01, 2024 10:37am Hospital Course Note MR#: [id number] [facility] Pt. Name: Chiki Juarez Admitted: 06/26/2020 Discharged: [...] asthma, lymphoma, and hypothyroidism, who transferred to [facility] for evaluation of poss (more content not included)... Reason for Referral Specialty Diagnoses / Procedures Referred By Chelsie t Referred To Contact CT IMAGING Diagnoses Localized enlarged lymph nodes Procedures CT CHEST W IVCON DIAGNOSTIC COMPUTED TOMOGRAPHY THORAX W/CONTRAST Tyler Draper MD [address] [place] [address] [place] [address] Ct Imaging [place] [address] Referral ID Status Reason Start Date Expiration Date Visits Requested Visits Authorized [id number] Authorized Auto-Generat ed Referral 11/15/2024 07/10/2025 1 1 Specialty Diagnoses / Procedures Referred By Chelsie t Referred To Contact Dermatology Diagnoses Skin lesion of face Procedures CONSULT TO DERMATOLOGY OFFICE/OUTPATIENT [facility] 60 MINUTES Tyler Draper MD [address] [place] [address] [place] [address] Referral ID Status Reason Start Date Expiration Date Visits Requested Visits Authorized [id number] Authorized PCP Requested Referral 04/19/2024 04/19/2025 1 1 Specialty Diagnoses / Procedures Referred By Chelsie simon Referred To Contact MOLECULAR & FUNCTIONAL IMAGING Diagnoses History of lymphoma Lymph node enlargement Procedures NM PET/CT SKULL-THIGH SUBSEQUENT PET IMAGING CT ATTENUATION SKULL BASE MID-THIGH Tyler Draper MD [address] [place] [address] [place] [address] Molecular & Functional Imaging [address] [place] [address] Referral ID Status Reason Start Date Expiration Date Visits Requested Visits Authorized [id number] Authorized Auto-Generat ed Referral 04/19/2024 05/19/2025 1 [...] and content) DATE CREATED AUTHOR 07/16/2020 [facility] DATE CREATED AUTHOR AUTHOR'S ORGANIZ ATION 04/26/2022 [facility] DATE CREATED AUTHOR AUTHOR'S ORGANIZ ATION 10/16/2024 [facility] DATE CREATED AUTHOR AUTHOR'S ORGANIZ ATION 11/24/2024 [facility] DATE CREATED AUTHOR AUTHOR'S ORGANIZ ATION 02/05/2025 [facility] EPIC DATE CREATED AUTHOR AUTHOR'S ORGANIZ ATION 02/19/2025 [facility] DATE CREATED AUTHOR AUTHOR'S ORGANIZ ATION 02/22/2025 [facility] DATE CREATED AUTHOR AUTHOR'S ORGANIZ ATION 02/27/2025 [facility] DATE CREATED AUTHOR AUTHOR'S ORGANIZ ATION 03/03/2025 [facility] Source Comments (unrecognize d section and content) In the event this informatio n is protected by the Federal Confidentiality of Alcohol and Drug Abuse Patient Records regulations: The Federal rules restrict any use of the information to criminally investigate or prosecute any alcohol or drug abuse patient.[facility] the event this information is protected by the Federal Confidentiality of Alcohol and Drug Abuse Patient Records regulations: The Federal rules restrict any use of the information to criminally investigate or prosecute any alcohol or drug abuse patient.[facility] the event this information is protected by the Federal Confidentiality of Alcohol and Drug Abuse Patient Records regulations: The Federal rules restrict any use of the information to criminally investigate or prosecute any alcohol or drug abuse patient.[facility] Center[facility] the event this information is protected by the Federal Confidentiality of Alcohol and Drug Abuse Patient Records regulations: The Federal rules restrict any use of the information to criminally investigate or prosecute any alcohol or drug abuse patient.[facility] Center[facility] the event this information is protected by the Federal Confidentiality of Alcohol and Drug Abuse Patient Records regulations: The Federal rules restrict any use of the information to criminally investigate or prosecute any alcohol or drug abuse patient.[facility] Center[facility] the event this information is protected by the Federal Confidentiality of Alcohol and Drug Abuse Patient Records regulations: The Federal rules restrict any use of the information to criminally investigate or prosecute any alcohol or drug abuse patient.[facility] Center[facility] the event this information is protected by the Federal Confidentiality of Alcohol and Drug Abuse Patient Records regulations: The Federal rules restrict any use of the information to criminally investigate or prosecute any alcohol or drug abuse patient.[facility] Center[facility] the event this information is protected by the Federal Confidentiality of Alcohol and Drug Abuse Patient Records regulations: The Federal rules restrict any use of the information to criminally investigate or prosecute any alcohol or drug abuse patient.[facility] Center[facility] the event this information is protected by the Federal Confidentiality of Alcohol and Drug Abuse Patient Records regulations: The Federal rules restrict any use of the information to criminally investigate or prosecute any alcohol or drug abuse patient.[facility] Center[facility] the event this information is protected by the Federal Confidentiality of Alcohol and Drug Abuse Patient Records regulations: The Federal rules restrict any use of the information to criminally investigate or prosecute any alcohol or drug abuse patient.[facility] Center[facility] the event this information is protected by the Federal Confidentiality of Alcohol and Drug Abuse Patient Records regulations: The Federal rules restrict any use of the information to criminally investigate or prosecute any alcohol or drug abuse patient.[facility] Center[facility] the event this information is protected by the Federal Confidentiality of Alcohol and Drug Abuse Patient Records regulations: The Federal rules restrict any use of the information to criminally investigate or prosecute any alcohol or drug abuse patient.[facility] Center[facility] the event this information is protected by the Federal Confidentiality of Alcohol and Drug Abuse Patient Records regulations: The Federal rules restrict any use of the information to criminally investigate or prosecute any alcohol or drug abuse patient.[facility] Center[facility] the event this information is protected by the Federal Confidentiality of Alcohol and Drug Abuse Patient Records regulations: The Federal rules restrict any use of the information to criminally investigate or prosecute any alcohol or drug abuse patient.[facility] Center[facility] the event this information is protected by the Federal Confidentiality of Alcohol and Drug Abuse Patient Records regulations: The Federal rules restrict any use of the information to criminally investigate or prosecute any alcohol or drug abuse patient.[facility] Reason for Visit (unrecogniz ed [...] ATTENUATION SKULL BASE MID-THIGH Tyler Draper MD [address] [place] [address] [place] [address] Molecular & Functional Imaging [address] [place] [address] Referral ID Status Reason Start Date Expiration Date V isits Requested Visits Authorized [id number] Closed Auto-Generate d Referral 04/19/2024 05/19/2025 1 1 Reason Comments Suspicious Skin Lesion New patient : SCC left cheek / right scalp Specialty Diagnoses / Procedures Referred By Chelsie simon Referred To Contact Otolaryngology Diagnoses 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 Procedures CT OFFICE/OUTPATIENT NEW HIGH MDM 60 MINUTES Crys Taylor PA [address] [place] [address] Phone: tel: fax: Connor Crawley, DO [address] [place] [address] Phone: tel: fax: Referral ID Status Reason Start Date Expiration Date V isits Requested Visits Authorized [id number] Closed Specialty Services Required 05/09/2024 11/05/2024 1 1 Reason Comments 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) Reason Comments Post-op Post op exc SCC scal p Reason Comments Pet results Reason Comments Post-op Specialty Diagnoses / Procedures Referred By Contac t Referred To Contact Dermatology Diagnoses skin lesion of face Procedures office visit Tyler Draper MD [address] [place] [address] Lucie Tompkins MD [address] [facility] [address] [place] [address] Referral ID Status Reason Start Date Expiration Date Visits Re quested Visits Authorized [id number] Closed 04/21/2024 10/18/2024 1 1 Reason Comments Skin Check Reason Comments Orders Reason Comments Radiology CT Specialty Diagnoses / Procedures Referred By Contac t Referred To Contact CT IMAGING Diagnoses Localized enlarged lymph nodes Procedures CT CHEST W IVCON DIAGNOSTIC COMPUTED TOMOGRAPHY THORAX W/CONTRAST Tyler Draper MD [address] [place] [address] Phone: tel: fax: [place] [address] Referral ID Status Reason Start Date Expiration Date V isits Requested Visits Authorized [id number] Closed Auto-Generate d Referral 11/15/2024 07/10/2025 1 1 Reason Comments MGUS Reason Onset Date Comments TSH results 11/24/2024 Care Teams (unrecognized sec tion and content) Pomology Teacher Relationship Specialty Start Date End Date Will Sherwood MD [address] [place] [address] PCP - General 08/01/05 Pomology Teacher Relationship Specialty Start Date End Date Will Sherwood MD [address] [place] [address] PCP - General 08/01/05 Pomology Teacher Relationship Specialty Start Date End Date Will Sherwood MD [address] [place] [address] PCP - General 08/01/05 Pomology Teacher Relationship Specialty Start Date End Date Will Sherwood MD [address] [place] [address] PCP - General 08/01/05 Pomology Teacher Relationship Specialty Start Date End Date Pito Patterson MD [address] [place] [address] PCP - General Family Medicine 07/23/23 Pomology Teacher Relationship Specialty Start Date End Date Pito Patterson MD [address] [facility] [place] [address] PCP - General Family Medicine 07/23/23 Pomology Teacher Relationship Specialty Start Date End Date Pito Patterson MD [address] [place] [address] PCP - General Family Medicine 07/23/23 Pomology Teacher Relationship Specialty Start Date End Date Pito Patterson MD [address] [facility] [place] [place] [address] PCP - General Family Medicine 07/23/23 Pomology Teacher Relationship Specialty Start Date End Date Unallocated, Noms MD Cole [address] [place] [address] PCP - General Family Medicine 04/08/23 Crys Taylor PA [address] [place] [id number] Physician [employer] Dermatology 05/31/24 Connor Crawley DO [address] [place] [address] Otolaryngology 05/31/24 Pomology Teacher Relationship Specialty Start Date End Date Pito Patterson MD [address] [place] [address] PCP - General Family Medicine 05/31/24 Crys Taylor PA [address] [place] [address] Physician [employer] Dermatology 05/31/24 Connor Crawley DO [address] [place] [address] Otolaryngology 05/31/24 Team Status: Active Member Role Status Dates Pito Patterson MD Primary Care Provider Active Team Status: Inactive Member Role Status Dates Connor Crawley DO Attending Provider Active S tart: June 01, 2024 End: June 01, 2024 Pito Patterson MD Primary Care Provider Active Start: June 01, 2024 End: June 01, 2024 Pomology Teacher Relationship Specialty Start Date End Date Pito Patterson MD [address] [place] [phone] PCP - General Family Medicine 05/31/24 Crys Taylor PA [address] [place] [address] Physician [employer] Dermatology 05/31/24 Connor Crawley DO [address] [place] [place] [address] Otolaryngology 05/31/24 Pomology Teacher Relationship Specialty Start Date End Date Pito Patterson MD [address] [place] [address] PCP - General Family Medicine 07/23/23 Pomology Teacher Relationship Specialty Start Date End Date Pito Patterson MD [address] [place] [address] PCP - General Family Medicine 05/31/24 Crys Taylor PA [address] [place] [address] Physician [employer] Dermatology 05/31/24 Connor Crawley DO [address] [place] [address] Otolaryngology 05/31/24 Pomology Teacher Relationship Specialty Start Date End Date Unallocated, Mohit Galvan MD [address] [place] [address] PCP - General Family Medicine 04/08/23 Pomology Teacher Relationship Specialty Start Date End Date Unallocated, Mohit Galvan MD [address] [facility] [place] [address] PCP - General Family Medicine 04/08/23 Pomology Teacher Relationship Specialty Start Date End Date Pito Patterson MD [address] [place] [phone] PCP - General Family Medicine 05/31/24 Crys Taylor PA [address] [place] [address] Physician [employer] Dermatology 05/31/24 Connor Crawley DO [address] [place] [address] Otolaryngology 05/31/24 Pomology Teacher Relationship Specialty Start Date End Date Pito Patterson MD [address] [place] [address] PCP - General Family Medicine 07/23/23 Pomology Teacher Relationship Specialty Start Date End Date Pito Patterson MD [address] [place] [address] PCP - General Family Medicine 07/23/23 Pomology Teacher Relationship Specialty Start Date End Date Pito Patterson MD [address] [place] [address] PCP - General Family Medicine 07/23/23 Pomology Teacher Relationship Specialty Start Date End Date Pito Patterson MD [address] [place] [address] PCP - General Family Medicine 07/23/23 Pomology Teacher Relationship Specialty Start Date End Date Pito Patterson MD [address] [place] [address] PCP - General Family Medicine 05/31/24 Crys Taylor PA [address] [place] [address] Physician [employer] D[employer] 05/31/24 Connor Crawley DO [address] [place] [address] Otolaryngology 05/31/24 Pomology Teacher Relationship Specialty Start Date End Date Pito Patterson MD [address] [place] [address] PCP - General Family Medicine 05/31/24 Crys Taylor PA [address] [place] [id number] Physician [employer] D[employer]at[employer] 05/31/24 Connor Crawley DO [address] [place] [address] Otolaryngology 05/31/24 FOR RECORDS PERTAINING TO PATIENTS [...] BE BASED ON THE PRIMARY CLINICAL RECORDS. [employer] [facility]. provides no warranty or guarantee of the accuracy or completeness of information in this document.
--- OUTSIDE RECORDS SUMMARY | 2025-03-06 06:53 | XMS_ITS ---
Author Organization [facility] Address [address] [place] [address] Care Team Providers Care Ground Crew Chief Name Role Phone Marshall Briceño MD Primary Care Provider [phone] Active Problems Problem Noted Date Diagnosed Date [...]
--- OUTSIDE RECORDS SUMMARY | 2025-03-06 06:56 | XMS_ITS | CCD ---
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 Primary Care Physician [phone] Pito Patterson MD Primary Care Provider [phone] Unallocated Mohit VENTURA Provider Primary Care Provi preet Crys Liu Unavailable Connor Crawley DO Unavailable Pito Patterson MD Primary Care Provider [phone] DO Connor Crawley Attending Provider MD Pito [...] ] Drug Allergy 2 Other: See Comments [facility] (2 sources) Latex Propensity to adverse [...] 1 VIAL VIA NEBULIZER EVERY 4 HOURS, [facility], 168, cm, 08/25/24 11:21:00 EST, Height/Length Dosing, [...] 1 VIAL VIA NEBULIZER EVERY 4 HOURS, [facility] ST[facility]8883, 161, cm, 02/15/24 10:32:00 EDT, Height/Length Dosing, 102, kg, 02/15/24 10:32:00 EDT, Weight Dosing Start Date: 02/22/24 Status: Ordered Start: 10-19-2023 take 1 dose by inhal ation every four hours albuterol 0.083% Inh Kasie 3 mL See Instructions, 300 mL, Refill(s) 3, INHALE 1 VIAL VIA NEBULIZER EVERY 4 HOURS, [facility]/pharmacy #[id number], 168, cm, 10/19/23 8:08:00 EST, Height/Length [...] 1 VIAL VIA NEBULIZER EVERY 6 HOURS, [facility] 14913, 162, cm, 10/28/22 15:18:00 EDT, Height/Length Dosing, [...] DAY, # 360 mL, Refills(s) 3, Pharmacy: [facility] STORE [id number], 168, cm, 04/22/24 10:00:00 EDT, Height/Length Dosing, [...] BID, # 120 mL, Refills(s) 11, Pharmacy: [facility]/pharmacy #[id number], 168, cm, 10/19/23 8:08:00 EST, Height/Length [...] BID, # 120 mL, Refills(s) 11, Pharmacy: [facility]/pharmacy #[id number], 162, cm, 10/28/22 15:18:00 EDT, Height/Length [...] Active Start: 03-09-2023 take 1 capsule by [facility] once daily at bedtime gabapentin 300 mg Cap 300 mg = 1 cap(s), Oral, Once a day (at bedtime), # 30 cap(s), Refills(s) 0, Pharmacy: [facility]/pharmacy #[id number], 168, cm, 03/09/23 11:04:00 EDT, Height/Length Dosing, 103, kg, 03/09/23 11:04:00 EDT, Weight Dosing Start Date: 03/09/23 Status: Ordered Start: 01-22-2023 take 1 capsule by [facility] once daily at bedtime gabapentin 300 mg Cap 300 mg = 1 cap(s), Oral, Once a day (at bedtime), # 30 cap(s), Refills(s) 0, Pharmacy: [facility]/pharmacy #[id number], 162, cm, 01/22/23 13:19:00 EDT, Height/Length [...] nasal route twice daily ipratropium Nasal 0.06% [place] 2 spray(s), Nasal, BID for 90 day(s), 45 mL, Refill(s) 3, PLACE 2 SPRAYS IN EACH NOSTRIL TWO TIMES DAILY., [facility]/pharmacy #[id number], 168, cm, 03/09/23 11:04:00 EDT, Height/Length Dosing, 103, kg, 03/09/23 11:04:00 EDT, Weight Dosing Start Date: 03/13/23 Stop Date: 03/07/24 Status: Ordered Start: 02-20-2023 take 1 dose nasal ro [place] twice daily, then take 2 spray(s) nasal route twice daily ipratropium Nasal 0.06% [place] 2 spray(s), Nasal, BID, 1 EA, Refill(s) 1, PLACE 2 SPRAYS IN EACH NOSTRIL TWO TIMES DAILY., [facility]/pharmacy #[id number], 162, cm, 01/22/23 13:19:00 EDT, Height/Length Dosing, 98.3, kg, 01/22/23 13:19:00 EDT, Weight Dosing Start Date: 02/20/23 Status: Ordered Start: 01-22-2023 take 1 dose nasal ro [place] twice daily, then take 2 spray(s) nasal route twice daily ipratropium Nasal 0.06% [place] 2 spray(s), Nasal, BID, 1 EA, Refill(s) [...] DAY, # 90 tab(s), Refills(s) 0, Pharmacy: [facility] [place] [id number], 168, cm, 11/24/24 13:08:00 EDT, Height/Length Dosing, 100.3, kg, 11/24/24 13:08:00 EDT, Weight Dosing Start Date: 01/31/25 Status: Ordered Quantity: 90.0 Unit: tab(s) Repeat number: 1 Start: 04-22-2024 take 1 tablet by noe th once daily levothyroxine 100 mcg (0.1 mg) Tab See Instructions, TAKE 1 TABLET BY MOUTH EVERY DAY, # 90 tab(s), Refills(s) 0, Pharmacy: [facility] [id number], 161, cm, 02/15/24 10:32:00 EDT, Height/Length Dosing, 102, kg, 02/15/24 10:32:00 EDT, Weight Dosing Start Date: 04/22/24 Status: Ordered Start: 10-19-2023 take 1 tablet by noe th once daily levothyroxine 100 mcg (0.1 mg) Tab 100 mcg = 1 tab(s), Oral, Daily, # 90 tab(s), Refills(s) 0, Pharmacy: [facility]/pharmacy #[id number], 168, cm, 10/19/23 8:08:00 EST, Height/Length [...] Refill(s) 0, Oxygen - patient states his health consultant just increased this to 4LPM Start Date: 02/15/24 Status: Ordered Repeat number: 1 Start: 02-15-2024 Oxygen - for H ome 4 L/min, Daily, Refill(s) 0, Oxygen - patient states his health consultant just increased this to 4LPM Start Date: 02/15/24 Status: Ordered polyethylene glycol 3350 46808 mg powder for oral solution (15 sources) [...] 3 EA, Refill(s) 3, [facility] ([facility]), 168, cm, 03/09/23 11:04:00 EDT, [...] capsule by in halation once daily Tiotropium [place] Active 1 CAP INHALATION Daily June 01, [...] procedure, # 2 tab(s), Refills(s) 0, Pharmacy: [facility]/pharmacy #[id number], 168, cm, 03/09/23 11:04:00 EDT, Height/Length [...] Ordered Start: 01-22-2023 take 1 tablet by [facility] once daily potassium chloride 10 mEq ER Tab 10 mEq = 1 tab(s), Oral, Daily, Refills(s) 0 Start Date: 01/22/23 Status: Ordered Start: 06-26-2021 take 1 capsule by mo [facility] once daily potassium chloride 10 mEq Cap-ER [...] 05-31-2024 02-24-2019 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 pt notified. Send rx to [facility] From: Rose Marie Sauceda ([facility] - Clinical) To: Marlys Carcamo; Sent: 02/23/2025 14:49:36 EDT Show up: 02/23/2025 14:49:00 EDT Subject: RE: Ambulatory Reminder Normal [facility] .Interpretation:on Interpretation: Comment Invalid Interpretation Code [facility] Comment on above: Result Comment: Not infected with HCV unless early or acute infection is suspected (which may be delayed in an immunocompromised individual), or other evidence exists to indicate HCV infection. Performed at: [facility] [id number] PhD Sahra Robledo Performed By: #### 2 [id number] #### [facility] [address] [place] [address] HCV Antibody RFX to Quant PC Mac 02-19-2025 HCV Ab Non-Reactive Invalid Interpretation Code Non Reactive [facility] Comment on above: Result Comment: Perf ormed at: [facility] [id number] PhD Sahra Robledo Performed By: #### 2 [id number] #### [facility] [address] [place] [address] CHEMISTRYOrdered By: SYSTEM SYSTEM on 02-16-2025 Albumin [...] (Bld) [Mass fraction] 6.0 % High <=5.9% [facility] ChemAutoSS CMPon 02-16-2025 Albumin [Mass/Vol] 3.8 g/dL Normal 3.3-5.0 [facility] Comment on above: Performed By: #### 2 [id number] #### [facility] [address] [place] [address] Albumin/Globulin [Mass ratio] 1.5 {ratio} Normal 1.1-2.2 [facility] Comment on above: Performed By: #### 2 [id number] #### [facility] [address] [place] [address] Alk Phos 81 Int._Unit/L Normal 21-98 [facility] Comment on above: Performed By: #### 2 [id number] #### [facility] [address] [place] [address] ALT 8 Int._Unit/L Normal 6-46 [facility] Comment on above: Performed By: #### 2 [id number] #### [facility] [address] [place] [address] Anion gap [Moles/Vol] 11 mmol/L Normal 6-16 [facility] Comment on above: Performed By: #### 2 [id number] #### [facility] [address] [place] [address] AST 11 Int._Unit/L Normal 5-43 [facility] Comment on above: Performed By: #### 2 [id number] #### [facility] [address] [place] [address] Bili Total 0.5 mg/dL Normal 0.0-1.1 [facility] Comment on above: Performed By: #### 2 [id number] #### [facility] [address] [place] [address] BUN/Creat Ratio 17 No Units Normal 10-20 [facility] Comment on above: Performed By: #### 2 [id number] #### [facility] [address] [place] [address] Calcium [Mass/Vol] 8.8 mg/dL Low 8.9-11.1 [facility] Comment on above: Performed By: #### 2 [id number] #### [facility] [address] [place] [address] Chloride [Moles/Vol] 104 mmol/L Normal 101-111 [facility] Comment on above: Performed By: #### 2 [id number] #### [facility] [address] [place] [address] CO2 [Moles/Vol] 26 mmol/L Normal 21-31 [facility] Comment on above: Performed By: #### 2 [id number] #### [facility] [address] [place] [address] Creatinine [Mass/Vol] 1.2 mg/dL Normal 0.5-1.3 [facility] Comment on above: Performed By: #### 2 [id number] #### [facility] [address] [place] [address] Globulin (S) [Mass/Vol] 2.6 g/dL Normal 1.4-4.0 [facility] Comment on above: Performed By: #### 2 [id number] #### [facility] [address] [place] [address] Glucose [Mass/Vol] 104 mg/dL Normal 55-199 [facility] Comment on above: Performed By: #### 2 [id number] #### [facility] [address] [place] [address] Potassium [Moles/Vol] 4.2 mmol/L Normal 3.5-5.3 [facility] Comment on above: Performed By: #### 2 [id number] #### [facility] [address] [place] [address] Protein [Mass/Vol] 6.4 g/dL Normal 6.0-7.8 [facility] Comment on above: Performed By: #### 2 [id number] #### [facility] [address] [place] [address] Sodium [Moles/Vol] 137 mmol/L Normal 135-145 [facility] Comment on above: Performed By: #### 2 [id number] #### [facility] [address] [place] [address] Urea nitrogen [Mass/Vol] 20 mg/dL Normal 5-21 [facility] Comment on above: Performed By: #### 2 [id number] #### [facility] [address] [place] [address] [id number] 02-16-2025 HbA1c (Bld) [Mass fraction] 6.0 % High <=5.9 [facility] Comment on above: Performed By: #### 7 [id number] #### [facility] [address] [place] [address] Lipid Panelon 02-16-2025 Cholesterol [Mass/Vol] 166 mg/dL Normal 120-200 [facility] Comment on above: Performed By: #### 2 [id number] #### [facility] [address] [place] [address] Cholesterol in HDL [Mass/Vol] 35 mg/dL Invalid Interpretation Code [facility] Comment on above: Result Comment: '>= 60 LOW RISK' '<= 40 HIGH RISK' Performed By: #### 2 [id number] #### [facility] [address] [place] [address] Cholesterol in LDL [Mass/Vol] 113 mg/dL Normal <=129 [facility] Comment on above: Performed By: #### 2 [id number] #### [facility] [address] [place] [address] Cholesterol in VLDL [Mass/Vol] 24 mg/dL Normal 7-40 [facility] Comment on above: Performed By: #### 2 [id number] #### [facility] [address] [place] [address] Triglyceride [Mass/Vol] 119 mg/dL Normal <=149 [facility] Comment on above: Performed By: #### 2 [id number] #### [facility] [address] [place] [address] TSHon 02-16-2025 TSH Qn 9.04 m[IU]/L High 0.34-5.60 [facility] Comment on above: Performed By: #### 2 [id number] #### [facility] [address] [place] [address] eGFRon 02-16-2025 eGFR 62 mL/min/1.73 m2 Normal >=59 [facility] Comment on above: Performed By: #### 1 [id number] #### [facility] [address] [place] [address] Ambulatory Visit Summaryon 0 02-15-2025 Ambulatory Visit [...] Appointments 2024 11:00 AM EDT With: Where: [address] [address]- Thursday 9:45 AM EDT With: MIKE VENTURA, Oni Sewell Where: [facility] [address] [address]- 2025 9:30 AM EDT With: Where: [address] [address]- You Need to Complete the Following Comprehensive [...] Every day Oxygen - patient states his health consultant just increased this to 4LPM Unchanged potassium chloride (potassium chloride 10 (more content not included)... Normal [facility] Ambulatory Visit Summary Ambulatory Visit [...] Appointments 2024 11:00 AM EDT With: Where: [address] [address]- Thursday 9:45 AM EDT With: MIKE VENTURA, Oni Sewell Where: [facility] [address] [place], [place] [address]- 2025 9:30 AM EDT With: Where: [address] [address]- You Need to Complete the [...] Every day Oxygen - patient states his health consultant just increased this to 4LPM Unchanged potassium chloride (potassium chloride 10 mEq Cap-ER) 1 Capsules By Mouth Every day Unchanged sodium chloride (Hyper-Flaco 3.5% inhalation solution) See instructions per neulizer BID, skip one dose with increased swelling in feet- per patient Unchan (more content not included)... Normal [facility] Family Medicine Office/Clini c Noteon 02-15-2025 [...] of clutter to prevent tripping and/or falling. [place] Advance Directives reviewed, at home. Patient encouraged [...] patient requests, he will have completed at [facility] prior to next PCP visit. Colonoscopy screenings [...] and pulmono (more content not included)... Normal [facility] Comment on above: Result Comment: [...] on Spiriva. sees Dr. Ferro and a health consultant in [place] as well. on 4 Liter O2. annual labs ordered. he has not had any water today so he will return for nurse visit. RTC 3 months Ordered: E&M of Est. Patient Low 20-29 Min 26432 2. Back pain (M54.9: Dorsalgia, unspecified) c/o worsening back pain. spine surgeon is not willing to do surgery due to lung condition. will send refill on T3 Ordered: E&M of Est. Patient Low 20-29 Min 36867 3. Former smoker (Z87.891: Personal history of nicotine dependence) continue not smoking Ordered: E&M of Est. Patient Low 20-29 Min 98013 4. BMI 34.0-34.9,adult, (Z68.34: Body mass index [BMI] 34.0-34.9, adult)Body mass index [BMI] 34.0-34.9, adult BMI education Ordered: E&M of Est. Patient Low 20-29 Min 24473 5. Class 1 obesity due to excess calories with body mass index (BMI) of 34.0 to 34.9 in adult (E66.811: Obesity, class 1) see above Ordered: E&M of Est. Patient Low 20-29 Min 65822 Orders: 1125F Pain severity quantified; pain present [...] Handicap Placard, (more content not included)... Normal [facility] Comment on above: Result Comment: Elec tronically Signed By: Marlys Carcamo\.br\Date and Time Signed: 02/15/25 11:36 EDT No Panel Informationon 02-02 [facility] Ambulatory Visit Summaryon 0 11-24-2024 Ambulatory [...] Appointments Thursday 8:00 AM EDT With: Where: [address] [address]- Thursday 9:00 AM EDT With: Pito Patterson MD Where: [address] [id number]- Thursday 9:45 AM EDT With: Oni MCKEON MD Where: [facility] [address] [place] [address]- Medications What How Much When Why Instructions [...] Every day Oxygen - patient states his health consultant just increased this to 4LPM Contact prescribing physician if questions or concerns Unchanged potassium chloride (potassium chloride 10 mEq Cap-ER) 1 Capsules By Mouth Every day Contact prescribing physician if questions or concerns Unchanged sodium chloride (Hyper-Flaco 3.5% inhalation solution) See instructions per nirav BID, skip one dose wi (more content not included)... Normal [facility] Family Medicine Office/Clini c Noteon 11-24-2024 Family [...] patient is also maintaining follow-ups with a health consultant for pulmonary hypertension and noted no new [...] function evaluation conducted. - Scheduled follow-up with health consultant for pulmonary hypertension. - Upcoming re-evaluation for [...] pending. Pulmonary hypertension remains stable per routine health consultant follow-ups. B-cell lymphoma continues to be ma (more content not included)... Normal [facility] Comment on above: Result Comment: Elec tronically Signed By: Navarro VENTURA, Pito Davidson\.br\Date and Time Signed: 11/24/24 13:39 EDT No Panel Informationon 11-22 [facility] PROSTATE-SPECIFIC ANTIGEN DI AGNOSTICon 11-22-2024 Prostate specific Ag [Mass/Vol] 0.24 ng/mL NINF - 2.60 ng/mL [facility] Comment on above: Total PSA test metho dology used is the Electrochemiluminescence Immunoassay by [employer]. Total PSA values by differing methodologies cannot be interchanged. Prostate specific Ag [Mass/V ol]on 11-22-2024 Interpretation and review of laboratory results Normal [facility] T4/FTI/T4Uon 11-22-2024 FTI 7 ug/dL 5.3 - 10.8 ug/dL [facility] Interpretation and review of laboratory results Abnormal [facility] T4 [Mass/Vol] 6.1 ug/dL 5.5 - 10.2 ug/dL [facility] T4 uptake [Mass/Vol] 0.87 Low 0.91 - 1.19 [facility] THYROID STIMULATING HORMONEo n 11-22-2024 TSH Qn 2.01 m[IU]/L [facility] TSH Qnon 11-22-2024 Interpretation and review of laboratory results Normal [facility] CNOVSPon 11-21-2024 CNOVS Visit (SP) Office (H EMASA) -- CHIKI JUAREZ ([id number]) 1945 M Date Time Provider Department 11/21/24 [...] influenza A infection and was hospitalized at [facility]. Apparently his symptoms were severe enough [...] Resp 24 (more content not included)... Normal [facility] PSA SerPl-mCncon 11-21-2024 Prostate specific Ag [Mass/Vol] 0.24 ng/mL Normal <2.60 [facility] Comment on above: Order Comment: Speci men Type: BLOOD SPECIMENOrdering Facility: [facility] Address: [address] [place] [address] Result Comment: Tota l PSA test methodology used is the Electrochemiluminescence Immunoassay by [employer]. Total PSA values by differing methodologies cannot be interchanged. Performed By: #### 2 [id number] ####[facility] [id number] [place] [address] [place] T4/FTI/T4Uon 11-21-2024 FTI 7.0 ug/dL Normal 5.3-10.8 [facility] Comment on above: Order Comment: Speci men Type: BLOOD SPECIMEN Ordering Facility: [facility] Address: [address] [place] [address] Performed By: #### I FESC #### [facility] CLIA [id number] [address] [place] [address] [place] T4 [Mass/Vol] 6.1 ug/dL Normal 5.5-10.2 [facility] Comment on above: Order Comment: Speci men Type: BLOOD SPECIMEN Ordering Facility: [facility] Address: [address] [place] [address] Performed By: #### I FESC #### [facility] CLIA [id number] [address] [place] [address] [place] T4 uptake [Mass/Vol] 0.87 Low 0.91-1.19 [facility] Comment on above: Order Comment: Speci men Type: BLOOD SPECIMEN Ordering Facility: [facility] Address: [address] [place] [address] Performed By: #### I FESC #### [facility] CLIA [id number] [address] [place] [address] [place] TSH SerPl-aCncon 11-21-2024 TSH Qn 2.010 m[IU]/L Normal 0.270-4.200 [facility] Comment on above: Order Comment: Speci men Type: BLOOD SPECIMEN Ordering Facility: [facility] Address: [address] [place] [address] Performed By: #### I FESC #### [facility] CLIA [id number] [address] [place] [address] [place] CBC W Auto Differential pane l (Bld)on 11-16-2024 Anisocytosis Ql (Bld) Present [facility] Basophils (Bld) [#/Vol] 0.05 10*3/uL NINF [facility] Basophils/100 WBC (Bld) 0.9 % [facility] Differential cell count method Nom (Bld) Manual [facility] Eosinophils (Bld) [#/Vol] 0.05 10*3/uL [facility] Eosinophils/100 WBC (Bld) 0.9 % [facility] Erythrocyte distribution width (RBC) [Ratio] 16.2 % High 11.5 - 15.0 % [facility] Hematocrit (Bld) [Volume fraction] 35.7 % Low 39.0 - 51.0 % [facility] Hemoglobin (Bld) [Mass/Vol] 11.5 g/dL Low 13.0 - 17.0 g/dL [facility] Interpretation and review of laboratory results Abnormal [facility] Lymphocytes (Bld) [#/Vol] 1.14 10*3/uL [facility] Lymphocytes/100 WBC (Bld) 20.5 % [facility] MCH (RBC) [Entitic mass] 34.4 pg High 26.0 - 34.0 pg [facility] MCHC (RBC) [Mass/Vol] 32.2 g/dL 30.5 - 36.0 g/dL [facility] MCV (RBC) [Entitic vol] 106.9 fL High 80.0 - 100.0 fL [facility] Diver[place] % 2.6 % [facility] Monocytes (Bld) [#/Vol] 1.85 10*3/uL High NINF [facility] Monocytes/100 WBC (Bld) 33.3 % [facility] Myelo % 6.8 % [facility] Neutrophils (Bld) [#/Vol] 1.94 10*3/uL [facility] Neutrophils/100 WBC (Bld) 35 % [facility] Nucleated RBC (Bld) [#/Vol] NINF [facility] Nucleated RBC/100 WBC (Bld) [Ratio] 0 % /100 WBC [facility] Ovalocytes LM Ql (Bld) Few [facility] Platelet mean volume (Bld) [Entitic vol] 10.9 fL 9.0 - 12.7 fL [facility] Platelets (Bld) [#/Vol] 186 10*3/uL [facility] Platelets Estimate (Bld) [#/Vol] Adequate [facility] Polychromasia LM Ql (Bld) Slight [facility] RBC (Bld) [#/Vol] 3.34 10*6/uL Low 4.20 - 6.0 0 m/uL [facility] Red Cell Morph Reviewed: see result s of individual morphologies [facility] WBC (Bld) [#/Vol] 5.55 10*3/uL [facility] WBC Left Shift Ql (Bld) Present [facility] This is an appended report. These results have been appended to a previously verified report. [facility] PROTEIN, TOTALon 11-16-2024 Protein [Mass/Vol] 6.8 g/dL 6.3 - 8.0 g/dL [facility] Protein [Mass/Vol]on Interpretation and review of laboratory results Normal [facility] CBC W Auto Differential pane l (Bld)on 11-15-2024 Anisocytosis Ql (Bld) Present Normal [facility] Comment on above: Order Comment: Speci men Type: BLOOD SPECIMEN Ordering Facility: [facility] Address: [address] [place] [address] [place] [id number] Performed By: #### I FESC #### [facility] CLIA [id number] [address] [place] [address] [place] Basophils (Bld) [#/Vol] 0.05 10*3/uL Normal <0.11 [facility] Comment on above: Order Comment: Speci men Type: BLOOD SPECIMEN Ordering Facility: [facility] Address: [address] [place] [address] Performed By: #### I FESC #### [facility] CLIA [id number] [address] [place] [address] [place] Basophils/100 WBC (Bld) 0.9 % Normal [facility] Comment on above: Order Comment: Speci men Type: BLOOD SPECIMEN Ordering Facility: [facility] Address: [address] [place] [address] Performed By: #### I FESC #### [facility] CLIA [id number] [address] [place] [address] [place] Differential cell count method Nom (Bld) Manual Normal [facility] Comment on above: Order Comment: Speci men Type: BLOOD SPECIMEN Ordering Facility: [facility] Address: [address] [place] [address] Performed By: #### I FESC #### [facility] CLIA [id number] [address] [place] [address] [place] Eosinophils (Bld) [#/Vol] 0.05 10*3/uL Normal <0.46 [facility] Comment on above: Order Comment: Speci men Type: BLOOD SPECIMEN Ordering Facility: [facility] Address: [address] [place] [address] Performed By: #### I FESC #### [facility] CLIA [id number] [address] [place] [address] [place] Eosinophils/100 WBC (Bld) 0.9 % Normal [facility] Comment on above: Order Comment: Speci men Type: BLOOD SPECIMEN Ordering Facility: [facility] Address: [address] [place] [address] Performed By: #### I FESC #### [facility] CLIA [id number] [address] [place] [address] [place] Erythrocyte distribution width (RBC) [Ratio] 16.2 % High 11.5-15.0 [facility] Comment on above: Order Comment: Speci men Type: BLOOD SPECIMEN Ordering Facility: [facility] Address: [address] [place] [address] Performed By: #### I FESC #### [facility] CLIA [id number] [address] [place] [address] [place] Hematocrit (Bld) [Volume fraction] 35.7 % Low 39.0-51.0 [facility] Comment on above: Order Comment: Speci men Type: BLOOD SPECIMEN Ordering Facility: [facility] Address: [address] [place] [address] Performed By: #### I FESC #### [facility] CLIA [id number] [address] [place] [address] [place] Hemoglobin (Bld) [Mass/Vol] 11.5 g/dL Low 13.0-17.0 [facility] Comment on above: Order Comment: Speci men Type: BLOOD SPECIMEN Ordering Facility: [facility] Address: [address] [place] [address] Performed By: #### I FESC #### [facility] CLIA [id number] [address] [place] [address] [place] Lymphocytes (Bld) [#/Vol] 1.14 10*3/uL Normal 1.00-4.00 [facility] Comment on above: Order Comment: Speci men Type: BLOOD SPECIMEN Ordering Facility: [facility] Address: [address] [place] [address] Performed By: #### I FESC #### [facility] CLIA [id number] [address] [place] [address] [place] Lymphocytes/100 WBC (Bld) 20.5 % Normal [facility] Comment on above: Order Comment: Speci men Type: BLOOD SPECIMEN Ordering Facility: [facility] Address: [address] [place] [address] Performed By: #### I FESC #### [facility] CLIA [id number] [address] [place] [address] [place] MCH (RBC) [Entitic mass] 34.4 pg High 26.0-34.0 [facility] Comment on above: Order Comment: Speci men Type: BLOOD SPECIMEN Ordering Facility: [facility] Address: [address] [place] [address] Performed By: #### I FESC #### [facility] CLIA [id number] [address] [place] [address] [place] MCHC (RBC) [Mass/Vol] 32.2 g/dL Normal 30.5-36.0 [facility] Comment on above: Order Comment: Speci men Type: BLOOD SPECIMEN Ordering Facility: [facility] Address: [address] [place] [address] Performed By: #### I FESC #### [facility] CLIA [id number] [address] [place] [address] [place] MCV (RBC) [Entitic vol] 106.9 fL High 80.0-100.0 [facility] Comment on above: Order Comment: Speci men Type: BLOOD SPECIMEN Ordering Facility: [facility] Address: [address] [place] [address] Performed By: #### I FESC #### [facility] CLIA [id number] [address] [place] [address] [place] Metamyelocytes/100 WBC (Bld) 2.6 % Normal [facility] Comment on above: Order Comment: Speci men Type: BLOOD SPECIMEN Ordering Facility: [facility] Address: [address] [place] [id number] Performed By: #### I FESC #### [facility] CLIA [id number] [address] [place] [address] [place] Monocytes (Bld) [#/Vol] 1.85 10*3/uL High <0.87 [facility] Comment on above: Order Comment: Speci men Type: BLOOD SPECIMEN Ordering Facility: [facility] Address: [address] [place] [address] Performed By: #### I FESC #### [facility] CLIA [id number] [address] [place] [address] [place] Monocytes/100 WBC (Bld) 33.3 % Normal [facility] Comment on above: Order Comment: Speci men Type: BLOOD SPECIMEN Ordering Facility: [facility] Address: [address] [place] [address] Performed By: #### I FESC #### [facility] CLIA [id number] [address] [place] [address] [place] MYELO% 6.8 % Normal [facility] Comment on above: Order Comment: Speci men Type: BLOOD SPECIMEN Ordering Facility: [facility] Address: [address] [place] [address] Performed By: #### I FESC #### [facility] CLIA [id number] [address] [place] [address] [place] Neutrophils (Bld) [#/Vol] 1.94 10*3/uL Normal 1.45-7.50 [facility] Comment on above: Order Comment: Speci men Type: BLOOD SPECIMEN Ordering Facility: [facility] Address: [address] [place] [address] Performed By: #### I FESC #### [facility] CLIA [id number] [address] [id number] [address] [place] Neutrophils/100 WBC (Bld) 35.0 % Normal [facility] Comment on above: Order Comment: Speci men Type: BLOOD SPECIMEN Ordering Facility: [facility] Address: [address] [place] [address] Performed By: #### I FESC #### [facility] CLIA [id number] [address] [place] [address] [place] Nucleated RBC (Bld) [#/Vol] 10*3/uL Normal <0.01 [facility] Comment on above: Order Comment: Speci men Type: BLOOD SPECIMEN Ordering Facility: [facility] Address: [address] [place] [address] Performed By: #### I FESC #### [facility] CLIA [id number] [address] [place] [address] [place] Nucleated RBC/100 WBC (Bld) [Ratio] 0.0 /100 WBC Normal [facility] Comment on above: Order Comment: Speci men Type: BLOOD SPECIMEN Ordering Facility: [facility] Address: [address] [place] [address] Performed By: #### I FESC #### [facility] CLIA [id number] [address] [place] [address] [place] Ovalocytes LM Ql (Bld) Few Normal [facility] Comment on above: Order Comment: Speci men Type: BLOOD SPECIMEN Ordering Facility: [facility] Address: [address] [place] [address] Performed By: #### I FESC #### [facility] CLIA [id number] [address] [place] [address] [place] Platelet mean volume (Bld) [Entitic vol] 10.9 fL Normal 9.0-12.7 [facility] Comment on above: Order Comment: Speci men Type: BLOOD SPECIMEN Ordering Facility: [facility] Address: [address] [place] [address] Performed By: #### I FESC #### [facility] CLIA [id number] [address] [place] [address] [place] Platelets (Bld) [#/Vol] 186 10*3/uL Normal 150-400 [facility] Comment on above: Order Comment: Speci men Type: BLOOD SPECIMEN Ordering Facility: [facility] Address: [address] [place] [address] Performed By: #### I FESC #### [facility] CLIA [id number] [facility] [place] [address] [place] Platelets Estimate (Bld) [#/Vol] Adequate Normal [facility] Comment on above: Order Comment: Speci men Type: BLOOD SPECIMEN Ordering Facility: [facility] Address: [address] [place] [address] Performed By: #### I FESC #### [facility] CLIA [id number] [address] [place] [address] [place] Polychromasia LM Ql (Bld) Slight Normal [facility] Comment on above: Order Comment: Speci men Type: BLOOD SPECIMEN Ordering Facility: [facility] Address: [address] [place] [address] Performed By: #### I FESC #### [facility] CLIA [id number] [address] [place] [address] [place] RBC (Bld) [#/Vol] 3.34 10*6/uL Low 4.20-6.00 [facility] Comment on above: Order Comment: Speci men Type: BLOOD SPECIMEN Ordering Facility: [facility] Address: [address] [place] [address] Performed By: #### I FESC #### [facility] CLIA [id number] [address] [place] [address] [place] RED CELL MORPH Reviewed: see result s of individual morphologies Normal [facility] Comment on above: Order Comment: Speci men Type: BLOOD SPECIMEN Ordering Facility: [facility] Address: [address] [place] [address] Performed By: #### I FESC #### [facility] CLIA [id number] [address] [place] [address] [place] WBC (Bld) [#/Vol] 5.55 10*3/uL Normal 3.70-11.00 [facility] Comment on above: Order Comment: Speci men Type: BLOOD SPECIMEN Ordering Facility: [facility] Address: [address] [place] [address] Performed By: #### I FESC #### [facility] CLIA [id number] [address] [place] [address] [place] WBC Left Shift Ql (Bld) Present Normal [facility] Comment on above: Order Comment: Speci men Type: BLOOD SPECIMEN Ordering Facility: [facility] Address: [address] [place] [address] Performed By: #### I FESC #### [facility] CLIA [id number] [address] [place] [address] [place] CHEST W IVCONon 5 CT CHEST W IVCON * * *Final Report* * * DATE OF EXAM: Nov 15 2024 3:21PM [facility] 0539 - CT CHEST W IVCON [...] abdomen: Visualized upper abdomen is grossly unremarkable. Mine Superintendent (topogram) images: Unremarkable. IMPRESSION: No lymphadenopathy in [...] any questions regarding this interpretation, please call [phone]. If you are unable to reach us at the number above, please feel free to contact [facility] at [phone]. [id number] Normal [facility] CT Chest W contrast Shantel IMPRESSION: No [...] any questions regarding this interpretation, please call [phone]. If you are unable to reach us at the number above, please feel free to contact [facility] at [phone]. DIVISION OF RADIOLOGY * * *Final Report* * * DATE OF EXAM: Nov 15 2024 3:21PM [facility] 0539 - CT CHEST W IVCON [...] abdomen: Visualized upper abdomen is grossly unremarkable. Mine Superintendent (topogram) images: Unremarkable. DIVISION OF RADIOLOGY Provider, [facility] - 11/15/2024 * * *Final Report* * * DATE OF EXAM: Nov 15 2024 3:21PM [facility] 0539 - CT CHEST W IVCON [...] abdomen: Visualized upper abdomen is grossly unremarkable. Mine Superintendent (topogram) images: Unremarkable. IMPRESSION IMPRESSION: No lymphadenopathy [...] any questions regarding this interpretation, please call [phone]. If you are unable to reach us at the number above, please feel free to contact [facility] at [phone]. [facility] Radiology Study observation (narrative) [facility] CT Chest W contrast IVOrdere d By: [facility] Provider on 11-15-2024 [facility] Comp Metab 2000 Pnl SerPlon 11-15-2024 Protein [Mass/Vol] 6.8 g/dL Normal 6.3-8.0 [facility] Comment on above: Order Comment: Speci jomar Type: BLOOD SPECIMEN Ordering Facility: [facility] Address: [address] [place] [address] Performed By: #### I [facility] #### [facility] CLIA [id number] [address] [place], [place] [address] [place] [address] [place] Order Comment: Speci men Type: BLOOD SPECIMENOrdering Facility: [facility] Address: [address] [place] [address] Performed By: #### 2 885-2 ####[facility] [id number] [place] [id number] [facility] [place] Comprehensive metabolic 2000 panelOrdered By: Niki Lynn on 11-15-2024 Albumin [Mass/Vol] 3.8 g/dL Low 3.9 - 4.9 g/dL [facility] ALP [Catalytic activity/Vol] 83 U/L 38 - 113 U/L [facility] ALT [Catalytic activity/Vol] 9 U/L Low 10 - 54 U/L [facility] Anion gap [Moles/Vol] 12 mmol/L 8 - 15 mmol/L [facility] AST [Catalytic activity/Vol] 14 U/L 14 - 40 U/L [facility] Bilirubin [Mass/Vol] 0.4 mg/dL 0.2 - 1 .3 mg/dL [facility] Calcium [Mass/Vol] 9.3 mg/dL 8.5 - 10. 2 mg/dL [facility] Chloride [Moles/Vol] 104 mmol/L 98 - 10 7 mmol/L [facility] CO2 [Moles/Vol] 24 mmol/L 22 - 30 mmol/L [facility] Creatinine [Mass/Vol] 1.27 mg/dL High 0.73 - 1.22 mg/dL [facility] GFR/1.73 sq M.predicted among non-blacks MDRD (S/P/Bld) [Vol rate/Area] 58 mL/min/{1.73_m2} Low - PINF [facility] Comment on above: Estimated Glomerular Filtration [...] 110 mg/dL High 74 - 99 mg/dL [facility] Comment on above: The [place] Di[employer] Association (ADA) provides guidance for [...] Standards of Medical Care in Diabetes 2016, [place] [employer]. Diabetes Care. 2016.39(Suppl 1). Interpretation and review of laboratory results Abnormal [facility] Potassium [Moles/Vol] 4 mmol/L 3.7 - 5.1 mmol/L [facility] Protein [Mass/Vol] 6.8 g/dL 6.3 - 8.0 g/dL [facility] Sodium [Moles/Vol] 140 mmol/L 136 - 144 mmol/L [facility] Urea nitrogen [Mass/Vol] 21 mg/dL 9 - 24 mg/dL [facility] Comprehensive metabolic 2000 panelon 11-15-2024 Albumin [Mass/Vol] 3.8 g/dL Low 3.9-4.9 [facility] Comment on above: Order Comment: Liliya hadley Type: BLOOD SPECIMEN Ordering Facility: [facility] Address: [address] [place] [address] Performed By: #### I FESC #### [facility] CLIA [id number] [address] [place] [address] [place] ALP [Catalytic activity/Vol] 83 U/L Normal 38-113 [facility] Comment on above: Order Comment: Liliya hadley Type: BLOOD SPECIMEN Ordering Facility: [facility] Address: [address] [place] [address] Performed By: #### I FESC #### [facility] CLIA [id number] [address] [place] [address] [place] ALT [Catalytic activity/Vol] 9 U/L Low 10-54 [facility] Comment on above: Order Comment: Liliya hadley Type: BLOOD SPECIMEN Ordering Facility: [facility] Address: [address] [place] [address] Performed By: #### I FESC #### [facility] CLIA [id number] [address] [place] [address] [place] Anion gap [Moles/Vol] 12 mmol/L Normal 8-15 [facility] Comment on above: Order Comment: Speci men Type: BLOOD SPECIMEN Ordering Facility: [facility] Address: [address] [place] [address] Performed By: #### I FESC #### [facility] CLIA [id number] [address] [place] [address] [place] AST [Catalytic activity/Vol] 14 U/L Normal 14-40 [facility] Comment on above: Order Comment: Speci men Type: BLOOD SPECIMEN Ordering Facility: [facility] Address: [address] [place] [address] Performed By: #### I FESC #### [facility] CLIA [id number] [address] [place] [address] [place] Bilirubin [Mass/Vol] 0.4 mg/dL Normal 0.2-1.3 [facility] Comment on above: Order Comment: Speci men Type: BLOOD SPECIMEN Ordering Facility: [facility] Address: [address] [place] [address] Performed By: #### I FESC #### [facility] CLIA [id number] [address] [place] [address] [place] Calcium [Mass/Vol] 9.3 mg/dL Normal 8.5-10.2 [facility] Comment on above: Order Comment: Speci men Type: BLOOD SPECIMEN Ordering Facility: [facility] Address: [address] [place] [address] Performed By: #### I FESC #### [facility] CLIA [id number] [address] [place] [address] [place] Chloride [Moles/Vol] 104 mmol/L Normal 98-107 [facility] Comment on above: Order Comment: Speci men Type: BLOOD SPECIMEN Ordering Facility: [facility] Address: [address] [place] [address] Performed By: #### I FESC #### [facility] CLIA [id number] [address] [place] [address] [place] CO2 [Moles/Vol] 24 mmol/L Normal 22-30 [facility] Comment on above: Order Comment: Speci men Type: BLOOD SPECIMEN Ordering Facility: [facility] Address: [address] [place] [address] Performed By: #### I FESC #### [facility] CLIA [id number] [address] [place] [address] [place] Creatinine [Mass/Vol] 1.27 mg/dL High 0.73-1.22 [facility] Comment on above: Order Comment: Speci men Type: BLOOD SPECIMEN Ordering Facility: [facility] Address: [address] [place] [address] Performed By: #### I FESC #### [facility] CLIA [id number] [address] [place] [address] [place] Creatinine and Glomerular filtration rate.predicted panel (S/P/Bld) 58 mL/min/1.73m??? Low >=60 [facility] Comment on above: Order Comment: Speci men Type: BLOOD SPECIMEN Ordering Facility: [facility] Address: [address] [place] [address] Result Comment: Ary mated Glomerular Filtration Rate [...] GFR. Performed By: #### I FESC #### [facility] CLIA [id number] [address] [place] [address] [place] Glucose [Mass/Vol] 110 mg/dL High 74-99 [facility] Comment on above: Order Comment: Speci men Type: BLOOD SPECIMEN Ordering Facility: [facility] Address: [address] [place] [address] Result Comment: The [place] Diabetes Association (ADA) provides guidance for cutoff [...] Standards of Medical Care in Diabetes 2016, [place] [employer]. Diabetes Care. 2016.39(Suppl 1). Performed By: #### I FESC #### [facility] CLIA [id number] [address] [place] [address] [place] Potassium [Moles/Vol] 4.0 mmol/L Normal 3.7-5.1 [facility] Comment on above: Order Comment: Liliya hadley Type: BLOOD SPECIMEN Ordering Facility: [facility] Address: [address] [place] [address] Performed By: #### I FESC #### [facility] CLIA [id number] [address] [place] [address] [place] Sodium [Moles/Vol] 140 mmol/L Normal 136-144 [facility] Comment on above: Order Comment: Liliya hadley Type: BLOOD SPECIMEN Ordering Facility: [facility] Address: [address] [place] [address] Performed By: #### I FESC #### [facility] CLIA [id number] [address] [place] [address] [place] Urea nitrogen [Mass/Vol] 21 mg/dL Normal 9-24 [facility] Comment on above: Order Comment: Liliya hadley Type: BLOOD SPECIMEN Ordering Facility: [facility] Address: [address] [place] [address] Performed By: #### I FESC #### [facility] CLIA [id number] [address] IMMUNOFIXATION SCREEN, SERUM on 11-15-2024 MPA RESULT No M protein is identified. Normal No M protein is identified. [facility] Comment on above: Order Comment: Speci men Type: BLOOD SPECIMENOrdering Facility: [facility] Address: [address] [place] [address] Performed By: #### I FESC ####[facility] [id number] [address] OF [facility] STAFF REVIEW (MPA) Reviewed by Xiomara powell M.D. Normal [facility] Comment on above: Order Comment: Speci men Type: BLOOD SPECIMENOrdering Facility: [facility] Address: [address] [place] [address] Performed By: #### I FESC ####[facility] [id number] [place] [id number] [place] IMMUNOGLOBULINS,IGG,IGA,IGMo n 11-15-2024 IgA [Mass/Vol] 127 mg/dL Normal 70-400 [facility] Comment on above: Order Comment: Speci men Type: BLOOD SPECIMENOrdering Facility: [facility] Address: [address] [place] [address] Performed By: #### S ERIMM ####[facility] LABCLIA [id number] [address], [facility]95 [place] IgG [Mass/Vol] 1016 mg/dL Normal 700-1600 [facility] Comment on above: Order Comment: Speci men Type: BLOOD SPECIMENOrdering Facility: [facility] Address: [address] [place] [address] Performed By: #### S ERIMM ####[facility] LABIA [id number] [place] [id number] [place] IgM [Mass/Vol] 109 mg/dL Normal 40-230 [facility] Comment on above: Order Comment: Speci men Type: BLOOD SPECIMENOrdering Facility: [facility] Address: [address] [place] [address] Performed By: #### S GIANLUCA ####[facility] LABCLIA [id number] [place] [address] [place] KAPPA/ARDON,FREE,SERon 2024 Immunoglobulin light chains.kappa.free (S) [Mass/Vol] 27.0 mg/L High 3.3-19.4 [facility] Comment on above: Order Comment: Speci men Type: BLOOD SPECIMEN Ordering Facility: [facility] Address: [address] [place] [address] Result Comment: Rare ly, increased serum free light chains levels may not be detected or accurately quantified due to prozone phenomenon or in high viscosity samples using this immunoturbidimetric assay. Correlation with other laboratory results and clinical findings is recommended. The [place] Free Light Chain was performed using the Binding Site Optilite immunoturbidimetric method. Result obtained with different assay methods or kits cannot be used interchangeably. Performed By: #### I FESC #### [facility] CLIA [id number] [address] [place] [address] [place] Immunoglobulin light chains.kappa/Immunog lobulin light chains.lambda (S) [Mass ratio] 1.66 High 0.26-1.65 [facility] Comment on above: Order Comment: Speci men Type: BLOOD SPECIMEN Ordering Facility: [facility] Address: [address] [place] [address] Performed By: #### I FESC #### [facility] CLIA [id number] [address] [place] [address] [place] Immunoglobulin light chains.lambda.free [Mass/Vol] 16.3 mg/L Normal 5.7-26.3 [facility] Comment on above: Order Comment: Speci men Type: BLOOD SPECIMEN Ordering Facility: [facility] Address: [address] [place] [address] Result Comment: Rare ly, increased serum free [...] interchangeably. Performed By: #### I FES #### [facility] CLIA [id number] [address] [place] [address] [place] PROTEIN ELECTROPHORESIS SERU M (P)on 11-15-2024 Albumin [Mass/Vol] 3.85 g/dL Normal 3.43-5.41 [facility] Comment on above: Order Comment: Speci men Type: BLOOD SPECIMENOrdering Facility: [facility] Address: [address] [place] [address] Performed By: #### L [id number] ####[facility] LABCLIA [id number] [place] [address] [place] Alpha 1 globulin Elph [Mass/Vol] 0.40 g/dL Normal 0.18-0.43 [facility] Comment on above: Order Comment: Speci men Type: BLOOD SPECIMENOrdering Facility: [facility] Address: [address] [place] [address] Performed By: #### L [id number] ####[facility] LABCLIA [id number] [place] [address] [place] Alpha 2 globulin Elph [Mass/Vol] 0.80 g/dL Normal 0.42-0.98 [facility] Comment on above: Order Comment: Speci men Type: BLOOD SPECIMENOrdering Facility: [facility] Address: [address] [place] [address] Performed By: #### L [id number] ####[facility] LABCLIA [id number] [place] [id number] [place] Beta globulin Elph [Mass/Vol] 0.82 g/dL Normal 0.61-1.17 [facility] Comment on above: Order Comment: Speci men Type: BLOOD SPECIMENOrdering Facility: [facility] Address: [address] [place] [address] Performed By: #### L [id number] ####[facility] LABCLIA [id number] [place] [address] [place] Gamma globulin Elph [Mass/Vol] 0.93 g/dL Normal 0.53-1.51 [facility] Comment on above: Order Comment: Speci men Type: BLOOD SPECIMENOrdering Facility: [facility] Address: [address] [place] [address] Performed By: #### L [id number] ####[facility] LABCLIA [id number] [place] [address] [place] M-PROTEIN LOCATION Normal [facility] Comment on above: Order Comment: Speci men Type: BLOOD SPECIMENOrdering Facility: [facility] Address: [address] [place] [address] Result Comment: Not Applicable. Performed By: #### L [id number] ####[facility] LABCLIA [id number] [place] [address] [place] Protein Fractions [Interp] No definitive M protein is identified on protein electrophoresis. Normal No definitive M protein is identified on protein electrophore sis. [facility] Comment on above: Order Comment: Speci men Type: BLOOD SPECIMENOrdering Facility: [facility] Address: [address] [place], [place] [address] Performed By: #### L [id number] ####[facility] LABCLIA [id number] [place] [address] [place] Protein.monoclonal Elph [Mass/Vol] 0.00 g/dL Normal <=0.00 [facility] Comment on above: Order Comment: Speci men Type: BLOOD SPECIMENOrdering Facility: [facility] Address: [address] [place] [address] Performed By: #### L [id number] ####[facility] LABCLIA [id number] [address] SPE STAFF REVIEW Reviewed by Xiomara powell M.D. [facility] Comment on above: Order Comment: Speci men Type: BLOOD SPECIMENOrdering Facility: [facility] Address: [address] [place] [address] Performed By: #### L [id number] ####[facility] LABCLIA [id number] [place] [id number] [facility] 36on 11-07-2024 36 Regarding echo resul t from 11/04/2024: MD Mayra Wellington MA His echocardiogram shows stable findings. Follow-up as planned. Patient made aware. [facility] Office Visiton 10-21-2024 Follow-up visit [id number] Tremaine Juarez 1945 M Date Provider Department Center 10/21/2024 Laura-DANIELLA EASTON KRISTEN Pulido Family History Problem Relation Age of Onset Stroke Father Family Status - Relation Status Age at Father Level of Service:[address] [place] OFFICE/OUTPATIENT ESTABLISHED LOW MDM 20 MIN [facility] Oswaldo 10-14-2024 LIDAN Telephone (CHERRY) -- CHIKI JUAREZ ([id number]) 1945 M Date Time Provider Department 10/14/24 [...] [C83.30] Order(s):COMPREHENSIVE METABOLIC PANEL [SQCMP] Order #: [id number] FUTURE COMPLETE BLOOD COUNT AND DIFFERENTIAL [SQCBCDIF] Order #: [id number] FUTURE PROTEIN ELECTROPHORESIS SERUM W/INTERP [SQSEPG] Order #: [id number] FUTURE MONOCLONAL PROTEIN, SERUM (BLOOD) [SQSERMPA] Order #: [id number] FUTURE Prescriptions as of 10/14/2024 - TEZSPIRE [...] Encounter Status:Closed by ARABELLA MANDUJANO on 10/14/24 [facility] Ambulatory Visit Summaryon 0 08-25-2024 Ambulatory [...] EDT With: Navarro VENTURA, Pito Davidson Where: [address] [address]- Thursday 8:00 AM EDT With: Where: [address] [phone]- Thursday 9:45 AM EDT With: MIKE VENTURA, Oni Sewell Where: [facility] [address] [place] [address]- Medications What How Much When Why Instructions [...] Every day Oxygen - patient states his health consultant just increased this to 4LPM Unchanged potassium [...] prostate cance (more content not included)... Normal [facility] Family Medicine Office/Clini c Noteon 08-25-2024 Family [...] to trialing Zyrtec for congestion relief. The health consultant, overseeing ongoing respiratory management, is scheduled for [...] disease, unspecified) Monitor exacerbation pattern and consult health consultant regarding chronic antibiotic therapy approval. Explore potential for chronic Zyrtec use for congestion relief upon health consultant's input. 4. Chronic diastolic heart failure (I50.32: [...] obstruction Card (more content not included)... Normal [facility] Comment on above: Result Comment: Elec tronically Signed By: Navarro VENTURA, Pito Davidson\.br\Date and Time Signed: 08/25/24 12:44 EST No Panel InformationOrdered By: Malou Wynne on 08-04-2024 [facility] Ambulatory Visit Summaryon 1 09-12-2023 Ambulatory [...] EST With: Navarro VENTURA, Pito Davidson Where: [address] [address]- Thursday 8:00 AM EDT With: Where: [address] [id number]- Thursday 9:45 AM EDT With: MIKE VENTURA, Oni Sewell Where: [facility] [address] [place] [address]- Medications What How Much When Why Instructions [...] Every day Oxygen - patient states his health consultant just increased this to 4LPM Unchanged potassium [...] lymphoma Histor (more content not included)... Normal [facility] Family Medicine Office/Clini c Noteon 07-13-2024 Family [...] day(s), # 6 tab(s), Refills(s) 0, Pharmacy: [facility]/pharmacy #[id number], 168, cm, 07/13/24 10:34:00 EST, Height/Length Dosing, 101.9, kg, 07/13/24 10:34:00 EST, Weight Dosing methylPREDNISolone, = 1 packet(s), Oral, As Directed, as directed on package labeling, X 6 day(s), # 21 tab(s), Refills(s) 0, Pharmacy: [facility]/pharmacy #[id number], 168, cm, 07/13/24 10:34:00 EST, Height/Length [...] qual (more content not included)... Normal [facility] Comment on above: Result Comment: Elec tronically Signed By: MARKUS CERNA CNP.otf\Date and Time Signed: 07/13/24 10:55 EST Oswaldo 06-10-2024 LIDAN Telephone (HEMASA) -- CHIKI JUAREZ ([id number]) 1945 M Date Time Provider Department 06/10/24 VALERIE MAYES During your visit today, we recorded the following information about you: Valerie Mayes RN 06/10/2024 8:[address] Mayra Berg, [facility] called and spoke with BRM yesterday [...] schedule a CT for November. Shea Kolb [facility] Valerie Mayes RN 06/13/2024 9:36 AM Signed notified and transferred to [facility] to schedule CT as recommended prior to return visit with [facility]. SANTI Rojas Trisha 06/13/2024 10:38 AM Signed Patient is scheduled 11/15/24 at 1:30 PM Shea Kolb [facility] Allergies As of Date: 06/10/2024 Noted Allergy Reaction SPIRONOLACTONE 09/18/2021 14 - Other: See Comments Comments: Leg cramps, Hyperkalemia Date Reviewed: 06/06/2024 Reviewed by: Yolanda Montague MA - Fully Assessed Reason for Visit: Pet results [Other] Primary Visit Diagnosis:Localized enlarged lymph nodes [R59.0] Order(s):CT CHEST W IVCON [9651319] Order #: [id number] FUTURE [] iv contrast (will be provided [...] line spec (more content not included)... Normal [facility] CNOVSPon 06-06-2024 CNOVSP Visit (SP) Office (H EMASA) -- CHIKI JUAREZ ([id number]) 1945 M Date Time Provider Department 06/06/24 [...] Temp 3 (more content not included)... Normal [facility] 06-01-2024 L Specimen: [id number] Received: 06/01/24 Status: GABBY Giron Num: [id number] Spec Type: Surgical Subm Dr: Connor Crawley DO Tissues: A Skin-Other than Cyst, tag, debridement or plastic repair (L CHEEK LESION) B Skin-Other than Cyst, tag, debridement or plastic repair (SCALP LESION) Procedures: HE/8, Gross/Micro L4/2, FS HE/8 Age/ Patient Sex Location Account Attending Physician Chiki Juarez 79/M [place] [id number] Connor Crawley DO SPEC NUM: [id number] RECD: 06/01/24 STATUS: GABBY GIRON NUM: [id number] MARIAN: 06/01/[address]: Connor Crawley DO ENTERED: 06/01/24 [facility] DR: SPEC TYPE: Surgical DEPT: S ENTERED BY: [id number] RECV BY: [id number] ORDERED: HE/8, Gross/Micro L4/2, FS HE/8 ORDERED: [...] the correct patient's name and scalp Specimen: [id number] Received: 06/01/24 Status: GABBY Giron Num: [id number] Spec Type: Surgical Subm Dr: Connor Crawley DO Tissues: A Skin-Other than Cyst, tag, debridement or plastic repair (L CHEEK LESION) B Skin-Other than Cyst, tag, debridement or plastic repair (SCALP LESION) Procedures: HE/8, Gross/Micro L4/2, FS 8 Patient: Chiki Juarez [id number] (Continued) Specimen: [id number] Received: 06/01/24 (Continued) Gross Description (Continued) Signed (signature on file) Randy Tillman MD 06/03/24 1151 Specimen: [id number] Received: 06/01/24 Status: GABBY Giron Num: [id number] Spec Type: Surgical Subm Dr: Connor Crawley DO Tissues: A Skin-Other than Cyst, tag, debridement or plastic repair (L CHEEK LESION) B Skin-Other than Cyst, tag, debridement or plastic repair (SCALP LESION) Procedures: DHARA/, Gross/Micro L4/2, FS Patient: Chiki Juarez [id number] (Continued) Specimen: [id number] Received: 06/01/24 (Continued) Gross Description (Continued) lesion [...] Nichols CPT Codes 88 305 x 2 92618 x 2 Specimen: [id number] Received: 06/01/24 Status: GABBY Giron Num: [id number] Spec Type: Surgical Subm Dr: Connor Crawley,DO Tissues: A Skin-Other than Cyst, tag, debridement or plastic repair (L CHEEK L (more content not included)... Normal [facility] Provider Letteron 06-01-2024 Provider Letter Provider Letter June 01, 2024 CHIKI JUAREZ [address] [place] [id number] : 1945 Dear Kwaku, We have been trying to reach you with no success. It is important that you return our call regarding your mobility scooter upon receiving this letter. Also, at the time of your call, please provide us with your current information. Thank you for your prompt attention to this matter. Sincerely, Family Medicine [place] [phone] ext [phone] [facility] Ambulatory Visit Summaryon 1 Ambulatory [...] EST With: Navarro VENTURA, Pito Davidson Where: [address] [address]- Thursday 8:00 AM EDT With: Where: [address] [address]- Thursday 9:45 AM EDT With: Oni MCKEON MD Where: [facility] [address] Suite [place], [place] [id number]- Medications What How Much When Why Instructions [...] Every day Oxygen - patient states his health consultant just increased this to 4LPM Contact prescribing physician if questions or concerns Unchanged potassium chloride (potassium chl (more content not included)... 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 Chronic kidney disease stage 3a is managed [...] 3352F Influ (more content not included)... Normal [facility] Comment on above: Result Comment: Elec tronically Signed By: Navarro VENTURA, Pito Davidson\.br\Date and Time Signed: 05/17/24 11:03 EDT Office Visiton 05-13-2024 Follow-up visit [id number] Tremaine Juarez 1945 M Date Provider Department Center 05/13/2024 DANIELLA CARDONA KRISTEN [facility] Family History Problem Relation Age of Onset Stroke Father Family Status - Relation Status Age at Father Level of Service:16570 [place] OFFICE/OUTPATIENT ESTABLISHED LOW MDM 20 MIN Normal [facility] No Panel Informationon 05-03 [facility] Type of biopsy: abernathy ential [...] taken Amount of lidocaine used: 1.0 cc [employer]Pointe Type of biopsy: abernathy ential Informed consent: [...] taken Amount of lidocaine used: 1.0 cc [employer] Type of biopsy: abernathy ential Informed consent: [...] taken Amount of lidocaine used: 2.0 cc [employer] Powered Tyrogenex [facility] Tyrogenex GLUCOSE, BLOOD (POC)on 04-29 Glucose [Mass/Vol] 98 mg/dL 74 - 99 mg/dL [facility] Comment on above: Location:[facility], [address] [place] [address] , [place], [place], [facility] The Accu-Chek Inform II glucose meter has [...] blood gas instrument) in the above situations. [facility] NM PET/CT SKULL-THIGH SUBQon 04-29-2024 NM PET/CT SKULL-THIGH SUBQ * * *Final Report* * * DATE OF EXAM: Apr 29 2024 3:28PM NRN 0063 - VA PET/CT SKULL-THIGH SUBQ / PROCEDURE REASON: multiple [...] * Uptake Time: 45 minutes * Radiopharmaceutical: W68-Urjzcwzbxvkmuvchoy (FDG) COMPARISON: No previous FDG PET/CT available [...] any questions regarding this interpretation, please call [phone]. If you are unable to reach us at the number above, please feel free to contact [facility] eRadiology at [phone]. [id number] Normal [facility] Urology Office/Clinic Noteon 04-22-2024 Urology Office/Clinic Note [...] [facility] [address], [place] [phone] Additional Instructions: 1 yr w/ PSA Patient [...] Cap, 300 (more content not included)... Normal [facility] Comment on above: Result Comment: Elec tronically Signed By: Oni MCKEON MD\.br\Date and Time Signed: 04/22/24 10:37 EDT\.br\Electronically Co-Signed By: Nettie Wolff\.br\Date and Time Co-Signed: 04/22/24 10:36 EDT CBC W Auto Differential pane l (Bld)on 04-20-2024 Anisocytosis Ql (Bld) Present [facility] Basophils (Bld) [#/Vol] 0.00 10*3/uL NINF [facility] Basophils/100 WBC (Bld) 0.0 % [facility] Differential cell count method Nom (Bld) Manual [facility] Eosinophils (Bld) [#/Vol] 0.00 10*3/uL [facility] Eosinophils/100 WBC (Bld) 0.0 % [facility] Erythrocyte distribution width (RBC) [Ratio] 15.2 % High 11.5 - 15.0 % [facility] Hematocrit (Bld) [Volume fraction] 37.6 % Low 39.0 - 51.0 % [facility] Hemoglobin (Bld) [Mass/Vol] 12.3 g/dL Low 13.0 - 17.0 g/dL [facility] Interpretation and review of laboratory results Abnormal [facility] Lymphocytes (Bld) [#/Vol] 0.75 10*3/uL Low [facility] Lymphocytes/100 WBC (Bld) 17.0 % [facility] MCH (RBC) [Entitic mass] 34.2 pg High 26.0 - 34.0 pg [facility] MCHC (RBC) [Mass/Vol] 32.7 g/dL 30.5 - 36.0 g/dL [facility] MCV (RBC) [Entitic vol] 104.4 fL High 80.0 - 100.0 fL [facility] [place] % 1.0 % [facility] Monocytes (Bld) [#/Vol] 1.73 10*3/uL High NINF [facility] Monocytes/100 WBC (Bld) 39.0 % [facility] Neutrophils (Bld) [#/Vol] 1.91 10*3/uL [facility] Neutrophils/100 WBC (Bld) 43.0 % [facility] Nucleated RBC (Bld) [#/Vol] NINF [facility] Nucleated RBC/100 WBC (Bld) [Ratio] 0.0 % /100 WBC [facility] Ovalocytes LM Ql (Bld) Few [facility] Platelet mean volume (Bld) [Entitic vol] 10.0 fL 9.0 - 12.7 fL [facility] Platelets (Bld) [#/Vol] 136 10*3/uL Low [facility] Platelets Estimate (Bld) [#/Vol] Adequate [facility] Polychromasia LM Ql (Bld) Slight [facility] RBC (Bld) [#/Vol] 3.60 10*6/uL Low 4.20 - 6.0 0 m/uL [facility] Red Cell Morph Reviewed: see result s of individual morphologies [facility] WBC (Bld) [#/Vol] 4.44 10*3/uL [facility] WBC Left Shift Ql (Bld) Present [facility] ANC=1.55 The followi ng results were reported as preliminary values due to instrument flagging. Interpret with caution. Final results may vary.Results requested and read back by: [email or web address] @1418 9'3'24 GAY This is an appended report. These results have been appended to a previously verified report. [facility] Basic metabolic 2000 panelon 04-19-2024 Anion gap [Moles/Vol] 15 mmol/L 8 - 15 mmol/L [facility] Calcium [Mass/Vol] 9.2 mg/dL 8.5 - 10. 2 mg/dL [facility] Comment on above: Corrected result: Pr eviously reported as 9.6 mg/dL on 04/19/2024 at 2:41 PM EDT. Chloride [Moles/Vol] 105 mmol/L 98 - 10 7 mmol/L [facility] CO2 [Moles/Vol] 25 mmol/L 22 - 30 mmol/L [facility] Comment on above: Corrected result: Pr eviously reported as 27 mmol/L on 04/19/2024 at 2:41 PM EDT. Creatinine [Mass/Vol] 1.37 mg/dL High 0.73 - 1.22 mg/dL [facility] Comment on above: Corrected result: Pr eviously reported as 1.36 mg/dL on 04/19/2024 at 2:41 PM EDT. GFR/1.73 sq M.predicted among non-blacks MDRD (S/P/Bld) [Vol rate/Area] 53 mL/min/{1.73_m2} Low - PINF [facility] Comment on above: Estimated Glomerular Filtration [...] 120 mg/dL High 74 - 99 mg/dL [facility] Comment on above: The [place] Diab[employer] Association (ADA) provides guidance for [...] Standards of Medical Care in Diabetes 2016, [place] [employer]. Diabetes Care. 2016.39(Suppl 1). Corrected result: Previously reported as 126 mg/dL on 04/19/2024 at 2:41 PM EDT. Interpretation and review of laboratory results Abnormal [facility] Potassium [Moles/Vol] 4.4 mmol/L 3.7 - 5.1 mmol/L [facility] Sodium [Moles/Vol] 145 mmol/L High 136 - 144 mmol/L [facility] Urea nitrogen [Mass/Vol] 20 mg/dL 9 - 24 mg/dL [facility] Comment on above: Corrected result: Pr eviously reported as 21 mg/dL on 04/19/2024 at 2:41 PM EDT. [facility] Anion gap [Moles/Vol] 15 mmol/L Normal 8-15 [facility] Comment on above: Order Comment: Speci men Type: BLOOD SPECIMENOrdering Facility: [facility] Address: [address] [place] [address] Performed By: #### 2 4321-2 ####[facility] LABIA [id number] [place] [address] [place] Calcium [Mass/Vol] 9.2 mg/dL Normal 8.5-10.2 [facility] Comment on above: Order Comment: Speci men Type: BLOOD SPECIMENOrdering Facility: [facility] Address: [address] [place] [address] Result Comment: Enmanuel ected result: Previously reported as 9.6 mg/dL on 04/19/2024 at 2:41 PM EDT. Performed By: #### 2 4321-2 ####[facility] LABCLIA [id number] [place] [address] [place] Chloride [Moles/Vol] 105 mmol/L Normal 98-107 [facility] Comment on above: Order Comment: Speci men Type: BLOOD SPECIMENOrdering Facility: [facility] Address: [address] [place] [address] Performed By: #### 2 4321-2 ####[facility] LABIA [id number] [place] [address] [place] CO2 [Moles/Vol] 25 mmol/L Normal 22-30 [facility] Comment on above: Order Comment: Speci men Type: BLOOD SPECIMENOrdering Facility: [facility] Address: [address] [place] [address] Result Comment: Enmanuel ected result: Previously reported as 27 mmol/L on 04/19/2024 at 2:41 PM EDT. Performed By: #### 2 4321-2 ####[facility] LABCLIA [id number] [place] [address] [place] Creatinine [Mass/Vol] 1.37 mg/dL High 0.73-1.22 [facility] Comment on above: Order Comment: Speci men Type: BLOOD SPECIMENOrdering Facility: [facility] Address: [address] [place] [address] Result Comment: Enmanuel ected result: Previously reported as 1.36 mg/dL on 04/19/2024 at 2:41 PM EDT. Performed By: #### 2 4321-2 ####[facility] LABIA [id number] [place] [address] [place] Creatinine and Glomerular filtration rate.predicted panel (S/P/Bld) 53 mL/min/1.73m??? Low >=60 [facility] Comment on above: Order Comment: Speci men Type: BLOOD SPECIMENOrdering Facility: [facility] Address: [address] [place] [address] Result Comment: Ary mated Glomerular Filtration Rate [...] PM EDT. Performed By: #### 2 4321-2 ####[facility] LABIA [id number] [place] [address] [place] Glucose [Mass/Vol] 120 mg/dL High 74-99 [facility] Comment on above: Order Comment: Speci men Type: BLOOD SPECIMENOrdering Facility: [facility] Address: [address] [place] [address] Result Comment: The [place] Diabetes Association (ADA) provides guidance for cutoff [...] Standards of Medical Care in Diabetes 2016, [place] [employer]. Diabetes Care. 2016.39(Suppl 1). Corrected result: Previously reported as 126 mg/dL on 04/19/2024 at 2:41 PM EDT. Performed By: #### 2 4321-2 ####[facility] LABIA [id number] [place] [address] [place] Potassium [Moles/Vol] 4.4 mmol/L Normal 3.7-5.1 [facility] Comment on above: Order Comment: Speci men Type: BLOOD SPECIMENOrdering Facility: [facility] Address: [address] [place] [address] Performed By: #### 2 4321-2 ####[facility] LABIA [id number] [place] [address] [place] Sodium [Moles/Vol] 145 mmol/L High 136-144 [facility] Comment on above: Order Comment: Speci men Type: BLOOD SPECIMENOrdering Facility: [facility] Address: [address] [place] [address] Performed By: #### 2 4321-2 ####[facility] LABIA [id number] [place] [address] [place] Urea nitrogen [Mass/Vol] 20 mg/dL Normal 9-24 [facility] Comment on above: Order Comment: Speci men Type: BLOOD SPECIMENOrdering Facility: [facility] Address: [address] [place] [address] Result Comment: Enmanuel ected result: Previously reported as 21 mg/dL on 04/19/2024 at 2:41 PM EDT. Performed By: #### 2 4321-2 ####[facility] LABCLIA [id number] [place] [address] [place] CBC W Auto Differential pane l (Bld)on 04-19-2024 Anisocytosis Ql (Bld) Present Normal [facility] Comment on above: Order Comment: Speci men Type: BLOOD SPECIMENOrdering Facility: [facility] Address: [address] [place] [address] Performed By: #### 5 7021-8 ####[facility] LABCLIA [id number] [address] LABCLIA [id number] [place] [address] [place] Basophils (Bld) [#/Vol] 0.00 10*3/uL Normal <0.11 [facility] Comment on above: Order Comment: Speci men Type: BLOOD SPECIMENOrdering Facility: [facility] Address: [address] [place] [address] Performed By: #### 5 7021-8 ####[facility] LABCLIA [id number] [address] LABCLIA [id number] [place] [address] [place] Basophils/100 WBC (Bld) 0.0 % Normal [facility] Comment on above: Order Comment: Speci men Type: BLOOD SPECIMENOrdering Facility: [facility] Address: [address] [place] [address] Performed By: #### 5 7021-8 ####[facility] LABCLIA [id number] [address] LABCLIA [id number] [place] [address] [place] Differential cell count method Nom (Bld) Manual Normal [facility] Comment on above: Order Comment: Speci men Type: BLOOD SPECIMENOrdering Facility: [facility] Address: [address] [place] [address] Performed By: #### 5 7021-8 ####[facility] LABCLIA [id number] [address] LABCLIA [id number] [place] [address] [place] Eosinophils (Bld) [#/Vol] 0.00 10*3/uL Normal <0.46 [facility] Comment on above: Order Comment: Speci men Type: BLOOD SPECIMENOrdering Facility: [facility] Address: [address] [place] [address] Performed By: #### 5 7021-8 ####[facility] LABCLIA [id number] [address] LABCLIA [id number] [place] [address] [place] Eosinophils/100 WBC (Bld) 0.0 % Normal [facility] Comment on above: Order Comment: Speci men Type: BLOOD SPECIMENOrdering Facility: [facility] Address: [address] [place] [address] Performed By: #### 5 7021-8 ####[facility] LABCLIA [id number] [address] LABCLIA [id number] [place] [address] [place] Erythrocyte distribution width (RBC) [Ratio] 15.2 % High 11.5-15.0 [facility] Comment on above: Order Comment: Speci men Type: BLOOD SPECIMENOrdering Facility: [facility] Address: [address] [place] [address] Performed By: #### 5 7021-8 ####[facility] LABCLIA [id number] [place] [id number] LABCLIA [id number] [place] [address] [place] Hematocrit (Bld) [Volume fraction] 37.6 % Low 39.0-51.0 [facility] Comment on above: Order Comment: Speci men Type: BLOOD SPECIMENOrdering Facility: [facility] Address: [address] [place] [address] Performed By: #### 5 7021-8 ####[facility] LABCLIA [id number] [address] LABCLIA [id number] [place] [address] [place] Hemoglobin (Bld) [Mass/Vol] 12.3 g/dL Low 13.0-17.0 [facility] Comment on above: Order Comment: Speci men Type: BLOOD SPECIMENOrdering Facility: [facility] Address: [address] [place] [address] Performed By: #### 5 7021-8 ####[facility] LABCLIA [id number] [address] LABCLIA [id number] [place] [address] [place] Lymphocytes (Bld) [#/Vol] 0.75 10*3/uL Low 1.00-4.00 [facility] Comment on above: Order Comment: Speci men Type: BLOOD SPECIMENOrdering Facility: [facility] Address: [address] [place] [address] Performed By: #### 5 7021-8 ####[facility] LABCLIA [id number] [address] LABCLIA [id number] [place] [address] [place] Lymphocytes/100 WBC (Bld) 17.0 % Normal [facility] Comment on above: Order Comment: Speci men Type: BLOOD SPECIMENOrdering Facility: [facility] Address: [address] [place] [address] Performed By: #### 5 7021-8 ####[facility] LABCLIA [id number] [address] LABCLIA [id number] [place] [address] [place] MCH (RBC) [Entitic mass] 34.2 pg High 26.0-34.0 [facility] Comment on above: Order Comment: Speci men Type: BLOOD SPECIMENOrdering Facility: [facility] Address: [address] [place] [address] Performed By: #### 5 7021-8 ####[facility] LABCLIA [id number] [address] LABCLIA [id number] [place] [address] [place] MCHC (RBC) [Mass/Vol] 32.7 g/dL Normal 30.5-36.0 [facility] Comment on above: Order Comment: Speci men Type: BLOOD SPECIMENOrdering Facility: [facility] Address: [address] [place] [address] Performed By: #### 5 7021-8 ####[facility] LABCLIA [id number] [address] LABCLIA [id number] [place] [address] [place] MCV (RBC) [Entitic vol] 104.4 fL High 80.0-100.0 [facility] Comment on above: Order Comment: Speci men Type: BLOOD SPECIMENOrdering Facility: [facility] Address: [address] [place] [address] Performed By: #### 5 7021-8 ####[facility] LABCLIA [id number] [place] [id number] LABCLIA [id number] [place] [address] [place] Metamyelocytes/100 WBC (Bld) 1.0 % Normal [facility] Comment on above: Order Comment: Speci men Type: BLOOD SPECIMENOrdering Facility: [facility] Address: [address] [place] [address] Performed By: #### 5 7021-8 ####[facility] LABCLIA [id number] [address] LABCLIA [id number] [place] [address] [place] Monocytes (Bld) [#/Vol] 1.73 10*3/uL High <0.87 [facility] Comment on above: Order Comment: Speci men Type: BLOOD SPECIMENOrdering Facility: [facility] Address: [address] [place] [address] Performed By: #### 5 7021-8 ####[facility] LABCLIA [id number] [address] LABCLIA [id number] [place] [address] [place] Monocytes/100 WBC (Bld) 39.0 % Normal [facility] Comment on above: Order Comment: Speci men Type: BLOOD SPECIMENOrdering Facility: [facility] Address: [address] [place] [address] Performed By: #### 5 7021-8 ####[facility] LABCLIA [id number] [address] LABCLIA [id number] [place] [address] [place] Neutrophils (Bld) [#/Vol] 1.91 10*3/uL Normal 1.45-7.50 [facility] Comment on above: Order Comment: Speci men Type: BLOOD SPECIMENOrdering Facility: [facility] Address: [address] [place] [address] Performed By: #### 5 7021-8 ####ABDIRAHMAN [facility] LABCLIA [id number] [address] LABCLIA [id number] [place] [address] [place] Neutrophils/100 WBC (Bld) 43.0 % Normal [facility] Comment on above: Order Comment: Speci men Type: BLOOD SPECIMENOrdering Facility: [facility] Address: [address] [place] [address] Performed By: #### 5 7021-8 ####VARNEYSOURAV [facility] LABCLIA [id number] [address] LABCLIA [id number] [place] [address] [place] Nucleated RBC (Bld) [#/Vol] 10*3/uL Normal <0.01 [facility] Comment on above: Order Comment: Speci men Type: BLOOD SPECIMENOrdering Facility: [facility] Address: [address] [place] [address] Performed By: #### 5 7021-8 ####[facility] LABCLIA [id number] [address] LABCLIA [id number] [place] [address] [place] Nucleated RBC/100 WBC (Bld) [Ratio] 0.0 /100 WBC Normal [facility] Comment on above: Order Comment: Speci men Type: BLOOD SPECIMENOrdering Facility: [facility] Address: [address] [place] [address] Performed By: #### 5 7021-8 ####[facility] LABCLIA [id number] [address] LABCLIA [id number] [place] [id number] [place] Ovalocytes LM Ql (Bld) Few Normal [facility] Comment on above: Order Comment: Speci men Type: BLOOD SPECIMENOrdering Facility: [facility] Address: [address] [place] [address] Performed By: #### 5 7021-8 ####[facility] LABCLIA [id number] [address] LABCLIA [id number] [place] [address] [place] Platelet mean volume (Bld) [Entitic vol] 10.0 fL Normal 9.0-12.7 [facility] Comment on above: Order Comment: Speci men Type: BLOOD SPECIMENOrdering Facility: [facility] Address: [address] [place] [address] Performed By: #### 5 7021-8 ####[facility] LABCLIA [id number] [address] LABCLIA [id number] [place] [address] [place] Platelets (Bld) [#/Vol] 136 10*3/uL Low 150-400 [facility] Comment on above: Order Comment: Speci men Type: BLOOD SPECIMENOrdering Facility: [facility] Address: [address] [place] [address] Performed By: #### 5 7021-8 ####[facility] LABCLIA [id number] [address] LABCLIA [id number] [place] [address] [place] Platelets Estimate (Bld) [#/Vol] Adequate Normal [facility] Comment on above: Order Comment: Speci men Type: BLOOD SPECIMENOrdering Facility: [facility] Address: [address] [place], [place] [address] Performed By: #### 5 7021-8 ####[facility] LABCLIA [id number] [address] LABCLIA [id number] [place] [address] [place] Polychromasia LM Ql (Bld) Slight Normal [facility] Comment on above: Order Comment: Speci men Type: BLOOD SPECIMENOrdering Facility: [facility] Address: [address] [place] [address] Performed By: #### 5 7021-8 ####[facility] LABCLIA [id number] [address] LABCLIA [id number] [place] [address] [place] RBC (Bld) [#/Vol] 3.60 10*6/uL Low 4.20-6.00 [facility] Comment on above: Order Comment: Speci men Type: BLOOD SPECIMENOrdering Facility: [facility] Address: [address] [place] [address] Performed By: #### 5 7021-8 ####[facility] LABCLIA [id number] [address] LABCLIA [id number] [place] [address] [place] RED CELL MORPH Reviewed: see result s of individual morphologies Normal [facility] Comment on above: Order Comment: Speci men Type: BLOOD SPECIMENOrdering Facility: [facility] Address: [address] [place] [address] Performed By: #### 5 7021-8 ####[facility] LABCLIA [id number] [address] LABCLIA [id number] [place] [address] [place] WBC (Bld) [#/Vol] 4.44 10*3/uL Normal 3.70-11.00 [facility] Comment on above: Order Comment: Speci men Type: BLOOD SPECIMENOrdering Facility: [facility] Address: [address] [place] [address] Performed By: #### 5 7021-8 ####[facility] LABCLIA [id number] [address] LABIA [id number] [place] [address] [place] WBC Left Shift Ql (Bld) Present Normal [facility] Comment on above: Order Comment: Speci men Type: BLOOD SPECIMENOrdering Facility: [facility] Address: [address] [place] [address] Performed By: #### 5 7021-8 ####[facility] LABCLIA [id number] [address] LABCLIA [id number] [address] [place] CNOVSPon 04-19-2024 CNOVSP Visit (SP) Office (H EMASA) -- CHIKI JUAREZ ([id number]) 1945 M Date Time Provider Department 04/19/24 [...] visit here he followed up with his health consultant at [facility] for 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 For [...] or palpitati (more content not included)... Normal [facility] CHIKI JUAREZ ([id number]) 1945 M Date Time Provider Department 04/19/24 [facility] During your visit today, we recorded the following information about you: Mechelle Allred 04/19/2024 3:08 PM Signed Please ref patient to [facility] Dermatology. Dx Skin Lesion blaise facial area. Their office to call the patient to schedule/ Rhona, Please fax records Julius, Please follow up on this appt. Jennie Ye 04/20/2024 9:34 AM Signed Rhona: Information ready for you. Su Hodges 04/20/2024 10:41 AM Signed Records faxed to [facility] Dermatology. Su Pickett 04/26/2024 10:35 AM Signed [...] Status:Closed by SHERON METCALF on 04/26/24 Normal [facility] IMMUNOFIXATION SCREEN, SERUM on 04-19-2024 INTERPRETATION (MPA) Atypical restricted bands are present in the IgG and lambda regions. Consistent with IgG lambda monoclonal gammopathy. Normal [facility] Comment on above: Order Comment: Speci men Type: BLOOD SPECIMENOrdering Facility: [facility] Address: [address] [place] [address] Performed By: #### I FESC ####[facility] LABIA [id number] [address] [place] MPA RESULT M protein is present. Abnormal No M p rotein is identified. [facility] Comment on above: Order Comment: Speci men Type: BLOOD SPECIMENOrdering Facility: [facility] Address: [address] [place] [address] Performed By: #### I FESC ####[facility] LABIA [id number] [address] [place] STAFF REVIEW ([facility]) Reviewed by Alison Langford MD Normal [facility] Comment on above: Order Comment: Speci men Type: BLOOD SPECIMENOrdering Facility: [facility] Address: [address] [place] [address] Performed By: #### I FESC ####[facility] LABCLIA [id number] [place] [id number] [place] IMMUNOGLOBULINS,IGG,IGA,IGMo n 04-19-2024 IgA [Mass/Vol] 124 mg/dL Normal 70-400 [facility] Comment on above: Order Comment: Sonyi men Type: BLOOD SPECIMENOrdering Facility: [facility] Address: [address] [place] [address] Performed By: #### S ERIMM ####[facility] LABCLIA [id number] [place] [address] [place] IgG [Mass/Vol] 1147 mg/dL Normal 700-1600 [facility] Comment on above: Order Comment: Speci men Type: BLOOD SPECIMENOrdering Facility: [facility] Address: [address] [place] [address] Performed By: #### S ERIMM ####[facility] LABCLIA [id number] [place] [address] [place] IgM [Mass/Vol] 75 mg/dL Normal 40-230 [facility] Comment on above: Order Comment: Speci men Type: BLOOD SPECIMENOrdering Facility: [facility] Address: [address] [place] [address] Performed By: #### S ERIMM ####[facility] LABCLIA [id number] [place] [address] [place] KAPPA/ARDON,FREE,SERon 2023 Immunoglobulin light chains.kappa.free (S) [Mass/Vol] 34.6 mg/L High 3.3-19.4 [facility] Comment on above: Order Comment: Speci men Type: BLOOD SPECIMEN Ordering Facility: [facility] Address: [address] [place] [address] Result Comment: Rare ly, increased serum free light chains levels may not be detected or accurately quantified due to prozone phenomenon or in high viscosity samples using this immunoturbidimetric assay. Correlation with other laboratory results and clinical findings is recommended. The [place] Free Light Chain was performed using the Binding Site Optilite immunoturbidimetric method. Result obtained with different assay methods or kits cannot be used interchangeably. Performed By: #### I FESC #### [facility] CLIA [id number] [address] [place] [address] [place] Immunoglobulin light chains.kappa/Immunog lobulin light chains.lambda (S) [Mass ratio] 1.90 High 0.26-1.65 [facility] Comment on above: Order Comment: Speci men Type: BLOOD SPECIMEN [facility]ing Facility: [facility] Address: [address] [place] [address] Performed By: #### I FESC #### [facility] CLIA [id number] [address] [place] [address] [place] Immunoglobulin light chains.lambda.free [Mass/Vol] 18.2 mg/L Normal 5.7-26.3 [facility] Comment on above: Order Comment: Speci men Type: BLOOD SPECIMEN Ordering Facility: [facility] Address: [address] [place] [address] Result Comment: Rare ly, increased serum free [...] interchangeably. Performed By: #### I FES #### [facility] CLIA [id number] [address] [place] [address] [place] PROTEIN ELECTROPHORESIS SERU M WITH CARSON (P)on 04-19-2024 Albumin [Mass/Vol] 3.82 g/dL Normal 3.43-5.41 [facility] Comment on above: Order Comment: Speci men Type: BLOOD SPECIMENOrdering Facility: [facility] Address: [address] [place] [address] Performed By: #### L [id number] ####[facility] LABCLIA [id number] [place] [address] [place] Alpha 1 globulin Elph [Mass/Vol] 0.33 g/dL Normal 0.18-0.43 [facility] Comment on above: Order Comment: Speci men Type: BLOOD SPECIMENOrdering Facility: [facility] Address: [address] [place] [address] Performed By: #### L [id number] ####[facility] LABCLIA [id number] [address] [place] Alpha 2 globulin Elph [Mass/Vol] 0.69 g/dL Normal 0.42-0.98 [facility] Comment on above: Order Comment: Speci men Type: BLOOD SPECIMENOrdering Facility: [facility] Address: [address] [place] [address] Performed By: #### L [id number] ####[facility] LABCLIA [id number] [address] [place] Beta globulin Elph [Mass/Vol] 0.80 g/dL Normal 0.61-1.17 [facility] Comment on above: Order Comment: Speci men Type: BLOOD SPECIMENOrdering Facility: [facility] Address: [address] [place] [address] Performed By: #### L [id number] ####[facility] LABIA [id number] [address] STATES OF [facility] COMMENT (SERUM PROT ELECTRO) Monoclonal Protein analysis (immunofixation) is not indicated. Normal [facility] Comment on above: Order Comment: Speci men Type: BLOOD SPECIMENOrdering Facility: [facility] Address: [address] [place] [address] Performed By: #### L [id number] ####[facility] LABCLIA [id number] [address] [place] Gamma globulin Elph [Mass/Vol] 0.95 g/dL Normal 0.53-1.51 [facility] Comment on above: Order Comment: Speci men Type: BLOOD SPECIMENOrdering Facility: [facility] Address: [address] [place] [address] Performed By: #### L [id number] ####[facility] LABCLIA [id number] [address] [place] INTERPRETATION COMMENT FOR PROTEIN ELECTROPHORESIS The atypical region is relatively poorly defined and may represent an unusual presentation of polyclonal immunoglobulins, but cannot rule out the presence of a low level M protein. If clinically indicated, monoclonal protein analysis and serum free light chain analysis are suggested to evaluate further for monoclonal gammopathy. Normal [facility] Comment on above: Order Comment: Speci men Type: BLOOD SPECIMENOrdering Facility: [facility] Address: [address] [place] [address] Performed By: #### L [id number] ####[facility] LABCLIA [id number] [place] [address] [place] M-PROTEIN LOCATION Normal [facility] Comment on above: Order Comment: Speci men Type: BLOOD SPECIMENOrdering Facility: [facility] Address: [address] [place] [address] Result Comment: Not Applicable. Performed By: #### L [id number] ####[facility] LABCLIA [id number] [place] [address] [place] Protein Fractions [Interp] An atypical region of restricted mobility is identified on protein electrophoresis. Abnormal No definitive M protein is identified on protein electrophore sis. [facility] Comment on above: Order Comment: Speci men Type: BLOOD SPECIMENOrdering Facility: [facility] Address: [address] [place] [address] Performed By: #### L [id number] ####[facility] LABCLIA [id number] [place] [id number] [place] Protein.monoclonal Elph [Mass/Vol] 0.00 g/dL Normal <=0.00 [facility] Comment on above: Order Comment: Speci men Type: BLOOD SPECIMENOrdering Facility: [facility] Address: [address] [place], [place] [address] Performed By: #### L [id number] ####[facility] LABCLIA [id number] [place] [id number] [place] SPE STAFF REVIEW Reviewed by Alison Langford MD Normal [facility] Comment on above: Order Comment: Speci men Type: BLOOD SPECIMENOrdering Facility: [facility] Address: [address] [place] [address] Performed By: #### L [id number] ####[facility] LABCLIA [id number] [place] [address] [place] Prot SerPl-mCncon 04-19-2024 Protein [Mass/Vol] 6.6 g/dL Normal 6.3-8.0 [facility] Comment on above: Order Comment: Speci men Type: BLOOD SPECIMENOrdering Facility: [facility] Address: [address] [place] [address] Performed By: #### 2 885-2 ####[facility] LABCLIA [id number] [place] [address] [place] Reminderson 03-03-2024 Reminders Reminders From: Solange Broussard To: EU - Recalls Mckeon; Sent: 06/09/2023 16:03:24 EDT Show up: 01/16/2024 16:03:00 EDT Subject: renal US Due Date/Time: 02/01/2024 16:03:00 EDT Reminder/Recall Patient needs renal US prior to February 2024 appt f/u scheduled 03/14/24 LM on pt's VM notifying him that order for ZAMZAM has been faxed to [facility]. They should be reaching out to get him scheduled. If he does not hear from them w/in 1wk he is to call our office. F/U schedule dw/PRW 03/14/24 to review results. ZAMZAM scheduled 03/03/24. F/U schedule dw/PRW 03/14/24 to review results. Completed Normal [facility] Oswaldo 02-02-2024 RAINA Telephone (DONITA) -- ALTHEACHIKI HERNANDEZ ([id number]) 1945 M Date Time Provider Department 02/02/24 [...] Status:Closed by VALERIE MAYES on 02/02/24 Normal [facility] Basic metabolic 2000 panelon 01-21-2024 Anion gap [Moles/Vol] 7 mmol/L Low 8-15 [facility] Comment on above: Order Comment: Speci men Type: BLOOD SPECIMENOrdering Facility: [facility] Address: [address] [place] [address] [place] [address] Performed By: #### 2 4321-2 ####[facility] LABCLIA [id number] [place] [address] Calcium [Mass/Vol] 9.3 mg/dL Normal 8.5-10.2 [facility] Comment on above: Order Comment: Speci men Type: BLOOD SPECIMENOrdering Facility: [facility] Address: [address] [place] [address] Performed By: #### 2 4321-2 ####[facility] LABCLIA [id number] [place] [address] Chloride [Moles/Vol] 109 mmol/L High 98-107 [facility] Comment on above: Order Comment: Speci men Type: BLOOD SPECIMENOrdering Facility: [facility] Address: [address] [place] [address] Performed By: #### 2 4321-2 ####[facility] LABCLIA [id number] [place] [address] CO2 [Moles/Vol] 26 mmol/L Normal 22-30 [facility] Comment on above: Order Comment: Speci men Type: BLOOD SPECIMENOrdering Facility: [facility] Address: [address] [place] [address] Performed By: #### 2 4321-2 ####[facility] LABCLIA [id number] [place] [address] Creatinine [Mass/Vol] 1.31 mg/dL High 0.73-1.22 [facility] Comment on above: Order Comment: Speci men Type: BLOOD SPECIMENOrdering Facility: [facility] Address: [address] [place] [address] Performed By: #### 2 4321-2 ####[facility] LABCLIA [id number] [place] [address] Creatinine and Glomerular filtration rate.predicted panel (S/P/Bld) 56 mL/min/1.73m??? Low >=60 [facility] Comment on above: Order Comment: Speci men Type: BLOOD SPECIMENOrdering Facility: [facility] Address: [address] [place] [id number] Result Comment: Ary mated Glomerular Filtration Rate [...] GFR. Performed By: #### 2 4321-2 ####[facility] LABCLIA [id number] [place] [address] Glucose [Mass/Vol] 121 mg/dL High 74-99 [facility] Comment on above: Order Comment: Liliya hadley Type: BLOOD SPECIMENOrdering Facility: [facility] Address: [address] [place] [address] Result Comment: The [place] Diabetes Association (ADA) provides guidance for cutoff [...] Standards of Medical Care in Diabetes 2016, [place] [employer]. Diabetes Care. 2016.39(Suppl 1). Performed By: #### 2 4321-2 ####[facility] LABCLIA [id number] [place] [address] Potassium [Moles/Vol] 4.1 mmol/L Normal 3.7-5.1 [facility] Comment on above: Order Comment: Liliya hadley Type: BLOOD SPECIMENOrdering Facility: [facility] Address: [address] [place] [id number] Performed By: #### 2 4321-2 ####[facility] LABCLIA [id number] [place] [address] Sodium [Moles/Vol] 142 mmol/L Normal 136-144 [facility] Comment on above: Order Comment: Speci men Type: BLOOD SPECIMENOrdering Facility: [facility] Address: [address] [place] [address] Performed By: #### 2 4321-2 ####[facility] LABCLIA [id number] [place] [address] Urea nitrogen [Mass/Vol] 17 mg/dL Normal 9-24 [facility] Comment on above: Order Comment: Speci men Type: BLOOD SPECIMENOrdering Facility: [facility] Address: [address] [place] [address] Performed By: #### 2 4321-2 ####[facility] LABCLIA [id number] [place] [address] CBC W Auto Differential pane l (Bld)on 01-21-2024 Basophils (Bld) [#/Vol] 10*3/uL Normal <0.11 [facility] Comment on above: Order Comment: Speci men Type: BLOOD SPECIMENOrdering Facility: [facility] Address: [address] [place] [address] Performed By: #### 5 7021-8 ####[facility] LABCLIA [id number] [place] [address] Basophils/100 WBC (Bld) 0.3 % Normal [facility] Comment on above: Order Comment: Speci men Type: BLOOD SPECIMENOrdering Facility: [facility] Address: [address] [place] [address] Performed By: #### 5 7021-8 ####[facility] LABCLIA [id number] [place] [address] Differential cell count method Nom (Bld) Auto Normal [facility] Comment on above: Order Comment: Speci men Type: BLOOD SPECIMENOrdering Facility: [facility] Address: [address] [place] [address] Performed By: #### 5 7021-8 ####[facility] LABCLIA [id number] [place] [address] Eosinophils (Bld) [#/Vol] 10*3/uL Normal <0.46 [facility] Comment on above: Order Comment: Speci men Type: BLOOD SPECIMENOrdering Facility: [facility] Address: [address] [place] [address] Performed By: #### 5 7021-8 ####[facility] LABCLIA [id number] [place] [address] Eosinophils/100 WBC (Bld) 0.3 % Normal [facility] Comment on above: Order Comment: Speci men Type: BLOOD SPECIMENOrdering Facility: [facility] Address: [address] [place] [address] Performed By: #### 5 7021-8 ####[facility] LABCLIA [id number] [place] [address] Erythrocyte distribution width (RBC) [Ratio] 14.6 % Normal 11.5-15.0 [facility] Comment on above: Order Comment: Speci men Type: BLOOD SPECIMENOrdering Facility: [facility] Address: [address] [place] [address] Performed By: #### 5 7021-8 ####[facility] LABCLIA [id number] [place] [address] Hematocrit (Bld) [Volume fraction] 35.7 % Low 39.0-51.0 [facility] Comment on above: Order Comment: Speci men Type: BLOOD SPECIMENOrdering Facility: [facility] Address: [address] [place] [address] Performed By: #### 5 7021-8 ####[facility] LABCLIA [id number] [place] [address] Hemoglobin (Bld) [Mass/Vol] 11.4 g/dL Low 13.0-17.0 [facility] Comment on above: Order Comment: Speci men Type: BLOOD SPECIMENOrdering Facility: [facility] Address: [address] [place] [address] Performed By: #### 5 7021-8 ####[facility] LABCLIA [id number] [place] [address] Immature granulocytes (Bld) [#/Vol] 0.08 10*3/uL Normal <0.10 [facility] Comment on above: Order Comment: Speci men Type: BLOOD SPECIMENOrdering Facility: [facility] Address: [address] [place] [address] Performed By: #### 5 7021-8 ####[facility] LABCLIA [id number] [place] [address] Immature granulocytes/100 WBC (Bld) 2.2 % Normal [facility] Comment on above: Order Comment: Speci men Type: BLOOD SPECIMENOrdering Facility: [facility] Address: [address] [place] [address] Performed By: #### 5 7021-8 ####[facility] LABCLIA [id number] [place] [address] Lymphocytes (Bld) [#/Vol] 0.92 10*3/uL Low 1.00-4.00 [facility] Comment on above: Order Comment: Speci men Type: BLOOD SPECIMENOrdering Facility: [facility] Address: [address] [place] [address] Performed By: #### 5 7021-8 ####[facility] LABCLIA [id number] [place] [address] Lymphocytes/100 WBC (Bld) 25.2 % Normal [facility] Comment on above: Order Comment: Speci men Type: BLOOD SPECIMENOrdering Facility: [facility] Address: [address] [place] [address] Performed By: #### 5 7021-8 ####[facility] LABCLIA [id number] [place] [address] MCH (RBC) [Entitic mass] 33.8 pg Normal 26.0-34.0 [facility] Comment on above: Order Comment: Speci men Type: BLOOD SPECIMENOrdering Facility: [facility] Address: [address] [place] [address] Performed By: #### 5 7021-8 ####[facility] LABCLIA [id number] [place] [address] MCHC (RBC) [Mass/Vol] 31.9 g/dL Normal 30.5-36.0 [facility] Comment on above: Order Comment: Speci men Type: BLOOD SPECIMENOrdering Facility: [facility] Address: [address] [place] [address] Performed By: #### 5 7021-8 ####[facility] LABCLIA [id number] [place] [address] MCV (RBC) [Entitic vol] 105.9 fL High 80.0-100.0 [facility] Comment on above: Order Comment: Speci men Type: BLOOD SPECIMENOrdering Facility: [facility] Address: [address] [place] [address] Performed By: #### 5 7021-8 ####[facility] LABCLIA [id number] [place] [address] Monocytes (Bld) [#/Vol] 1.38 10*3/uL High <0.87 [facility] Comment on above: Order Comment: Speci men Type: BLOOD SPECIMENOrdering Facility: [facility] Address: [address] [place] [address] Performed By: #### 5 7021-8 ####[facility] LABCLIA [id number] [place] [address] Monocytes/100 WBC (Bld) 37.8 % Normal [facility] Comment on above: Order Comment: Speci men Type: BLOOD SPECIMENOrdering Facility: [facility] Address: [address] [place] [address] Performed By: #### 5 7021-8 ####[facility] LABCLIA [id number] [place] [address] Neutrophils (Bld) [#/Vol] 1.25 10*3/uL Low 1.45-7.50 [facility] Comment on above: Order Comment: Speci men Type: BLOOD SPECIMENOrdering Facility: [facility] Address: [address] [place] [address] Performed By: #### 5 7021-8 ####[facility] LABCLIA [id number] [place] [address] Neutrophils/100 WBC (Bld) 34.2 % Normal [facility] Comment on above: Order Comment: Speci men Type: BLOOD SPECIMENOrdering Facility: [facility] Address: [address] [place] [address] Performed By: #### 5 7021-8 ####[facility] LABCLIA [id number] [place] [address] Nucleated RBC (Bld) [#/Vol] 10*3/uL Normal <0.01 [facility] Comment on above: Order Comment: Speci men Type: BLOOD SPECIMENOrdering Facility: [facility] Address: [address] [place] [address] Performed By: #### 5 7021-8 ####[facility] LABCLIA [id number] [place] [address] Nucleated RBC/100 WBC (Bld) [Ratio] 0.0 /100 WBC Normal [facility] Comment on above: Order Comment: Speci men Type: BLOOD SPECIMENOrdering Facility: [facility] Address: [address] [place] [address] Performed By: #### 5 7021-8 ####[facility] LABCLIA [id number] [place] [address] Platelet mean volume (Bld) [Entitic vol] 9.6 fL Normal 9.0-12.7 [facility] Comment on above: Order Comment: Speci men Type: BLOOD SPECIMENOrdering Facility: [facility] Address: [address] [place] [address] Performed By: #### 5 7021-8 ####[facility] LABCLIA [id number] [place] [address] Platelets (Bld) [#/Vol] 151 10*3/uL Normal 150-400 [facility] Comment on above: Order Comment: Speci men Type: BLOOD SPECIMENOrdering Facility: [facility] Address: [address] [place] [address] Performed By: #### 5 7021-8 ####[facility] LABIA [id number] [place] [address] RBC (Bld) [#/Vol] 3.37 10*6/uL Low 4.20-6.00 [facility] Comment on above: Order Comment: Speci men Type: BLOOD SPECIMENOrdering Facility: [facility] Address: [address] [place] [address] Performed By: #### 5 7021-8 ####[facility] LABIA [id number] [place] [address] WBC (Bld) [#/Vol] 3.65 10*3/uL Low 3.70-11.00 [facility] Comment on above: Order Comment: Speci men Type: BLOOD SPECIMENOrdering Facility: [facility] Address: [address] [place] [address] Performed By: #### 5 7021-8 ####[facility] LABIA [id number] [place] [address] IMMUNOFIXATION SCREEN, SERUM on 01-21-2024 INTERPRETATION (MPA) Atypical restricted band is present in the lambda region. Consistent with lambda containing monoclonal gammopathy. IgD and IgE negative by immunofixation. [place] Normal [facility] Comment on above: Order Comment: Speci men Type: BLOOD SPECIMEN Ordering Facility: [facility] Address: [address] [place] [address] Performed By: #### I FESC #### [facility] CLIA [id number] [address] [place] [address] [place] MPA RESULT M protein is present. Abnormal No M p rotein is identified. [facility] Comment on above: Order Comment: Speci men Type: BLOOD SPECIMEN [facility]ing Facility: [facility] Address: [address] [place] [address] Performed By: #### I FESC #### [facility] CLIA [id number] [address] [place] [address] OF [place] STAFF REVIEW (MPA) Reviewed by Dr. Rowan Ibarra MD [facility] Comment on above: Order Comment: Speci men Type: BLOOD SPECIMEN Ordering Facility: [facility] Address: [address] [place] [address] Performed By: #### I FESC #### [facility] CLIA [id number] [address] [place] [address] [place] IMMUNOGLOBULINS,IGG,IGA,IGMo n 01-21-2024 IgA [Mass/Vol] 110 mg/dL Normal 70-400 [facility] Comment on above: Order Comment: Speci men Type: BLOOD SPECIMEN [facility]ing Facility: [facility] Address: [address] [place] [address] Performed By: #### I FESC #### [facility] CLIA [id number] [address] [place] [address] [place] IgG [Mass/Vol] 1011 mg/dL Normal 700-1600 [facility] Comment on above: Order Comment: Speci men Type: BLOOD SPECIMEN [facility]ing Facility: [facility] Address: [address] [place] [address] Performed By: #### I FESC #### [facility] CLIA [id number] [address] [place] [address] [place] IgM [Mass/Vol] 64 mg/dL Normal 40-230 [facility] Comment on above: Order Comment: Speci men Type: BLOOD SPECIMEN [facility]ing Facility: [facility] Address: [address] [place] [address] Performed By: #### I FES #### [facility] CLIA [id number] [address] [place] [address] [place] KAPPA/ARDON,FREE,SERon 2023 Immunoglobulin light chains.kappa.free (S) [Mass/Vol] 30.8 mg/L High 3.3-19.4 [facility] Comment on above: Order Comment: Speci men Type: BLOOD SPECIMEN Ordering Facility: [facility] Address: [address] [place] [address] Result Comment: Rare ly, increased serum free light chains levels may not be detected or accurately quantified due to prozone phenomenon or in high viscosity samples using this immunoturbidimetric assay. Correlation with other laboratory results and clinical findings is recommended. The [place] Free Light Chain was performed using the Binding Site Optilite immunoturbidimetric method. Result obtained with different assay methods or kits cannot be used interchangeably. Performed By: #### K LFRS #### [facility] CLIA [id number] [address] [place] [address] [place] Immunoglobulin light chains.kappa/Immunog lobulin light chains.lambda (S) [Mass ratio] 1.77 High 0.26-1.65 [facility] Comment on above: Order Comment: Speci men Type: BLOOD SPECIMEN [facility]ing Facility: [facility] Address: [address] [place] [address] Performed By: #### K LFRS #### [facility] CLIA [id number] [address] [place] [address] [place] Immunoglobulin light chains.lambda.free [Mass/Vol] 17.4 mg/L Normal 5.7-26.3 [facility] Comment on above: Order Comment: Speci men Type: BLOOD SPECIMEN Ordering Facility: [facility] Address: [address] [place] [address] Result Comment: Rare ly, increased serum free [...] interchangeably. Performed By: #### K LFRS #### [facility] CLIA [id number] [address] [place] [address] [place] PROTEIN ELECTROPHORESIS SERU M WITH CARSON (P)on 01-21-2024 Albumin [Mass/Vol] 3.53 g/dL Normal 3.43-5.41 [facility] Comment on above: Order Comment: Speci men Type: BLOOD SPECIMENOrdering Facility: [facility] Address: [address] [place] [address] Performed By: #### L [id number] ####[facility] LABCLIA [id number] [place] [address] [place] Alpha 1 globulin Elph [Mass/Vol] 0.36 g/dL Normal 0.18-0.43 [facility] Comment on above: Order Comment: Speci men Type: BLOOD SPECIMENOrdering Facility: [facility] Address: [address] [place] [address] Performed By: #### L [id number] ####[facility] LABCLIA [id number] [place] [address] [place] Alpha 2 globulin Elph [Mass/Vol] 0.73 g/dL Normal 0.42-0.98 [facility] Comment on above: Order Comment: Speci men Type: BLOOD SPECIMENOrdering Facility: [facility] Address: [address] [place] [address] Performed By: #### L [id number] ####[facility] LABCLIA [id number] [place] [address] [place] Beta globulin Elph [Mass/Vol] 0.74 g/dL Normal 0.61-1.17 [facility] Comment on above: Order Comment: Speci men Type: BLOOD SPECIMENOrdering Facility: [facility] Address: [address] [place] [address] Performed By: #### L [id number] ####[facility] LABIA [id number] [place] [address] [place] COMMENT (SERUM PROT ELECTRO) Monoclonal Protein analysis (immunofixation) is not indicated. Normal [facility] Comment on above: Order Comment: Speci men Type: BLOOD SPECIMENOrdering Facility: [facility] Address: [address] [place] [address] Performed By: #### L [id number] ####[facility] [id number] [place] [address] [place] Gamma globulin Elph [Mass/Vol] 0.84 g/dL Normal 0.53-1.51 [facility] Comment on above: Order Comment: Speci men Type: BLOOD SPECIMENOrdering Facility: [facility] Address: [address] [place] [address] Performed By: #### L [id number] ####[facility] LABIA [id number] [place] [address] [place] INTERPRETATION COMMENT FOR PROTEIN ELECTROPHORESIS See separate immunofixation report for characterization of monoclonal gammopathy. Normal [facility] Comment on above: Order Comment: Speci men Type: BLOOD SPECIMENOrdering Facility: [facility] Address: [address] [place] [address] Performed By: #### L [id number] ####[facility]IA [id number] [place] [address] [place] M-PROTEIN LOCATION Gamma Fraction 1 Normal [facility] Comment on above: Order Comment: Speci men Type: BLOOD SPECIMENOrdering Facility: [facility] Address: [address] [place] [address] Performed By: #### L [id number] ####[facility] LABCLIA [id number] [place] [address] [place] Protein Fractions [Interp] An M protein is identified on protein electrophoresis. Abnormal No definitive M protein is identified on protein electrophore sis. [facility] Comment on above: Order Comment: Speci men Type: BLOOD SPECIMENOrdering Facility: [facility] Address: [address] [place] [address] Performed By: #### L [id number] ####[facility]IA [id number] [place] [address] [place] Protein.monoclonal Elph [Mass/Vol] 0.10 g/dL High <=0.00 [facility] Comment on above: Order Comment: Speci men Type: BLOOD SPECIMENOrdering Facility: [facility] Address: [address] [place] [address] Performed By: #### L [id number] ####[facility] LABIA [id number] [place] [address] [place] SPE STAFF REVIEW Reviewed by Fran Boyd MD, Ph.D ([id number]) Normal [facility] Comment on above: Order Comment: Speci men Type: BLOOD SPECIMENOrdering Facility: [facility] Address: [address] [place] [address] Performed By: #### L [id number] ####[facility] LABIA [id number] [place] [address] [place] [facility] Prostate specific Ag [Mass/Vol] 0.23 ng/mL Normal <2.60 [facility] Comment on above: Order Comment: Speci men Type: BLOOD SPECIMENOrdering Facility: [facility] Address: [address] [place] [address] Result Comment: Tota l PSA test methodology used is the Electrochemiluminescence Immunoassay by [employer]. Total PSA values by differing methodologies cannot be interchanged. Performed By: #### 2 857-1 ####[facility] LABCLIA [id number] [facility] [place] [address] [place] Prot SerPl-mCncon 01-21-2024 Protein [Mass/Vol] 6.2 g/dL Low 6.3-8.0 [facility] Comment on above: Order Comment: Speci men Type: BLOOD SPECIMEN Ordering Facility: [facility] Address: [address] [place] [address] Performed By: #### I [facility] #### [facility] CLIA [id number] [address] [place], [place] [address] [place] [address] [place] CHEMISTRYOrdered By: SYSTEM [...] reviewed by ts . PROF CHEM 8 ([facility])on Anion gap [Moles/Vol] 14.0 mmol/L Normal [facility] Comment on above: Performed By: #### B MP ####[facility] [address] [place] [address]Dr. Trevor Nichols Calcium [Mass/Vol] 8.8 mg/dL Normal 8.5-10.1 [facility] Comment on above: Performed By: #### B MP ####[facility] [address] [place] [address]Dr. Trevor Nichols Chloride [Moles/Vol] 104 mmol/L Normal 98-107 [facility] Comment on above: Performed By: #### B MP ####[facility] [address] [place] [address]Dr. Trevor Nichols CO2 [Moles/Vol] 26.0 mmol/L Normal 21.0-32.0 [facility] Comment on above: Performed By: #### B MP ####[facility] [address] [place] [address]Dr. Trevor Nichols Creatinine [Mass/Vol] 1.49 mg/dL Critically high 0.70-1.30 [facility] Comment on above: Performed By: #### B MP ####[facility] [address] [place] [address]Dr. Trevor Nichols EGFR-AF MALAGASY 56 mL/min/1.73m2 Critically low >=60 [facility] Comment on above: Performed By: #### B MP ####[facility] [address] [place] [address]Dr. Trevor Nichols EGFR-NON AF MALAGASY 46 mL/min/1.73m2 Critically low >=60 [facility] Comment on above: Performed By: #### B MP ####[facility] [address] [place] [address]Dr. Trevor Nichols Glucose [Mass/Vol] 115 mg/dL Critically high 74-106 [facility] Comment on above: Performed By: #### B MP ####[facility] [address] [place] [address]Dr. Trevor Nichols Potassium [Moles/Vol] 4.0 mmol/L Normal 3.5-5.1 [facility] Comment on above: Performed By: #### B MP ####[facility] [address] [place] [address]Dr. Trevor Nichols Sodium [Moles/Vol] 140 mmol/L Normal 136-145 [facility] Comment on above: Performed By: #### B MP ####[facility] [address] [place] [address]Dr. Trevor Nichols Urea nitrogen [Mass/Vol] 22.0 mg/dL Critically high 7.0-18.0 [facility] Comment on above: Performed By: #### B MP ####[facility] [address] [place] [address]Dr. Trevor Nichols Urea nitrogen/Creatinine [Mass ratio] 14.8 mg/mg Normal [facility] Comment on above: Performed By: #### B MP ####[facility] [address] [place] [address]Dr. Trevor Nichols NM STRESS/REST MULTIon 04-16 NM STRESS/REST MULTI Patient: JANNETH JUAREZ Exam Date: 04/16/2022 : 1945 Gender:M Ordering : DR DANIELLA EASTON M.D. Admission #: [id number] Family : DR WILL SHERWOOD . Order #: [id number] CLICK HERE TO VIEW EXAM RADIOLOGY REPORT [...] on 04/16/2022 at 10:23 Normal [facility] ECHOCARDIO M/2D COMPLETEon 0 02-19-2022 ECHOCARDIO M/2D COMPLETE Patient: CHIKI JUAREZ Exam Date: 02/19/2022 : 1945 Gender:M Ordering : [employer] Admission #: [id number] Family : DR WILL SHERWOOD . Order #: [id number] CLICK HERE TO VIEW EXAM ECHOCARDIOGRAM REPORT [...] M.D. on 02/19/2022 at 19:53 Normal [facility] LIPID PROFILEon 02-10-2022 CHOL-HDL RATIO NORM SEE BELOW Normal [facility] Comment on above: Result Comment: 3.3 - 4.4 LOW RISK 4.4 - 7.1 AVERAGE RISK 7.1 - 11.0 MODERATE RISK >11.0 HIGH RISK Performed By: #### L IPID #### [facility] [address] [place] [address] Dr. Trevor Nichols Cholesterol [Mass/Vol] 171 mg/dL Normal <=200 [facility] Comment on above: Performed By: #### L IPID #### [facility] [address] [place] [address] Dr. Trevor Nichols Cholesterol in HDL [Mass/Vol] 40 mg/dL Normal 40-60 [facility] Comment on above: Performed By: #### L IPID #### [facility] [address] [place] [address] Dr. Trevor Nichols Cholesterol in LDL [Mass/Vol] 114.0 mg/dL Normal [facility] Comment on above: Performed By: #### L IPID #### [facility] [address] [place] [address] Dr. Trevor Nichols Cholesterol.total/Ch olesterol in HDL [Mass ratio] 4.3 {ratio} Normal [facility] Comment on above: Performed By: #### L IPID #### [facility] [address] [place] [address] Dr. Trevor Nichols HDL NORMAL > or = 60 mg/dl - LO W CARDIOVASCULAR RISK <40 mg/dl - HIGH CARDIOVASCULAR RISK Normal [facility] Comment on above: Performed By: #### L IPID #### [facility] [address] [place] [address] Dr. Trevor Nichols LDL CALC NORMAL SEE BELOW Normal [facility] Comment on above: Result Comment: <100 mg/dl OPTIMAL 100 - 129 mg/dl NEAR OR ABOVE OPTIMAL 130 - 159 mg/dl BORDERLINE HIGH 160 - 189 mg/dl HIGH >190 mg/dl VERY HIGH Performed By: #### L IPID #### [facility] [address] [place] [address] Dr. Trevor Nichols Triglyceride [Mass/Vol] 85 mg/dL Normal <=150 [facility] Comment on above: Performed By: #### L IPID #### [facility] [address] [place] [address] Dr. Trevor Nichols VLDL CALC 17.0 mg/dL Normal [facility] Comment on above: Performed By: #### L IPID #### [facility] [address] [place] [address] Dr. Trevor Nichols BNPon 02-05-2022 Natriuretic peptide B (Bld) [Mass/Vol] 231.0 pg/mL Normal <=900.0 [facility] Comment on above: Performed By: #### H STROPN, BNP, BMP #### [facility] [address] [place] [address] Dr. Trevor Nichols CBC W MANUAL DIFFon 02-06-20 ANISOCYTOSIS 1+ Normal [facility] Comment on above: Performed By: #### C JOBY #### [facility] [address] [place] [address] Dr. Trevor Nichols ATYPICAL LYMPH # Normal [facility] Comment on above: Performed By: #### C JOBY #### [facility] [address] [place] [address] Dr. Trevor Nichols ATYPICAL LYMPH % Normal [facility] Comment on above: Performed By: #### C JOBY #### [facility] [address] [place] [address] Dr. Trevor Nichols BAND # 0.3 103/ul Normal 0.0-0.3 [facility] Comment on above: Performed By: #### C JOBY #### [facility] [address] [place] [address] Dr. Trevor Nichols BAND % 6 % Critically high 0-5 [facility] Comment on above: Performed By: #### C JOBY #### [facility] [address] [place] [address] Dr. Trevor Nichols BASOM # 0.00 103/ul Normal 0.00-0.10 [facility] Comment on above: Performed By: #### C JOBY #### [facility] [address] [place] [address] Dr. Trevor Nichols BASOM % 0.0 % Critically low 0.2-2.0 [facility] Comment on above: Performed By: #### C JOBY #### [facility] [address] [place] [address] Dr. Trevor Nichols BLAST # Normal [facility] Comment on above: Performed By: #### C BCNADIA #### [facility] [address] [place] [address] Dr. Trevor Nichols BLAST % Normal [facility] Comment on above: Performed By: #### C BCNADIA #### [facility] [address] [place] [address] Dr. Trevor Nichols CORRECTED WBC Normal 4.0-11.0 [facility] Comment on above: Performed By: #### C JOBY #### [facility] [address] [place] [address] Dr. Trevor Nichols EOS # 0.04 103/ul Normal 0.00-0.70 [facility] Comment on above: Performed By: #### C JOBY #### [facility] [address] [place] [address] Dr. Trevor Nichols EOS% 1.0 % Normal 0.9-7.0 [facility] Comment on above: Performed By: #### C JOBY #### [facility] [address] [place] [address] Dr. Trevor Nichols HCT 36.4 % Critically low 42.0-54.0 [facility] Comment on above: Performed By: #### C JOBY #### [facility] [address] [place] [address] Dr. Trevor Nichols HGB 11.4 g/dl Critically low 14.0-18.0 [facility] Comment on above: Performed By: #### C JOBY #### [facility] [address] [place] [address] Dr. Trevor Nichols HYPOCHROMASIA SLIGHT Normal [facility] Comment on above: Performed By: #### C JOBY #### [facility] [address] [place] [address] Dr. Trevor Nichols LYMPHM # 1.19 103/ul Critically low 1.20-3.80 [facility] Comment on above: Performed By: #### C JOBY #### [facility] [address] [address] [address] Trevor Nichols LYMPHM% 27.0 % Normal 20.5-60.0 [facility] Comment on above: Performed By: #### C JOBY #### [facility] [address] [place] [address] Dr. Trevor Nichols MCH 32.5 pg Normal 25.9-34.0 [facility] Comment on above: Performed By: #### C JOBY #### [facility] [address] [address] [address] Trevor Nichols MCHC 31.3 g/dl Normal 29.9-35.2 [facility] Comment on above: Performed By: #### C JOBY #### [facility] [address] [place] [address] Dr. Trevor Nichols MCV 103.7 fL Critically high 80.0-94.0 [facility] Comment on above: Performed By: #### C JOBY #### [facility] [address] [place] [address] Dr. Trevor Nichols METAMYELOCYTE # Normal [facility] Comment on above: Performed By: #### C JOBY #### [facility] [address] [place] [address] Dr. Trevor Nichols METAMYELOCYTE % Normal [facility] Comment on above: Performed By: #### C JOBY #### [facility] [address] [place] [address] Dr. Trevor Nichols MONOM# 1.28 103/ul Critically high 0.30-0.80 [facility] Comment on above: Performed By: #### C JOBY #### [facility] [address] [place] [address] Dr. Trevor Nichols MONOM% 29.0 % Critically high 1.7-12.0 [facility] Comment on above: Performed By: #### C JOBY #### [facility] [address] [place] [address] Dr. Trevor Nichols MPV 10.5 fL Normal 9.5-13.5 [facility] Comment on above: Performed By: #### C BCMAN #### [facility] [address] [address] [address] Trevor Nichols MYELOCYTE # Normal [facility] Comment on above: Performed By: #### C BCNADIA #### [facility] [address] [place] [address] Dr. Trevor Nichols MYELOCYTE % Normal [facility] Comment on above: Performed By: #### C BCNADIA #### [facility] [address] [place] [address] Dr. Trevor Nichols NRBC Normal [facility] Comment on above: Performed By: #### C JOBY #### [facility] [address] [place] [address] Dr. Trevor Nichols PLT 161 103/ul Normal 150-450 [facility] Comment on above: Performed By: #### C JOBY #### [facility] [address] [place] [address] Dr. Trevor Nichols RBC 3.51 106/ul Critically low 4.70-6.10 [facility] Comment on above: Performed By: #### C JOBY #### [facility] [address] [place] [address] Dr. Trevor Nichols RDW 16.0 % Critically high 11.0-15.0 [facility] Comment on above: Performed By: #### C BCNADIA #### [facility] [address] [place] [address] Dr. Trevor Nichols SEG # 1.63 103/ul Normal 1.40-6.50 [facility] Comment on above: Performed By: #### C BCNADIA #### [facility] [address] [place] [address] Dr. Trevor Nichols SEG % 37.0 % Critically low 43.0-75.0 [facility] Comment on above: Performed By: #### C BCNADIA #### [facility] [address] [place] [address] Dr. Trevor Nichols WBC 4.4 103/ul Normal 4.0-11.0 [facility] Comment on above: Performed By: #### C BCMAN #### [facility] [address] [address] [address] Trevor Nichols PROF 14(COMP METB)on 022 Albumin [Mass/Vol] 3.4 g/dL Normal 3.4-5.0 [facility] Comment on above: Performed By: #### H STROPN, BNP, BMP #### [facility] [address] [address] [address] Trevor Nichols Albumin/Globulin [Mass ratio] 0.9 {ratio} Normal [facility] Comment on above: Performed By: #### H STROPN, BNP, BMP #### [facility] [address] [place] [address] Dr. Trevor Nichols ALP [Catalytic activity/Vol] 99 U/L Normal 46-116 [facility] Comment on above: Performed By: #### H STROPN, BNP, BMP #### [facility] [address] [address] [address] Trevor Nichols ALT [Catalytic activity/Vol] 18 U/L Normal 16-63 [facility] Comment on above: Performed By: #### H STROPN, BNP, BMP #### [facility] [address] [place] [address] Dr. Trevor Nichols Anion gap [Moles/Vol] 13.5 mmol/L Normal [facility] Comment on above: Performed By: #### H STROPN, BNP, BMP #### [facility] [address] [address] [address] Trevor Nichols AST [Catalytic activity/Vol] 10 U/L Critically low 15-37 [facility] Comment on above: Performed By: #### H STROPN, BNP, BMP #### [facility] [address] [place] [address] Dr. Trevor Nichols Bilirubin [Mass/Vol] 0.5 mg/dL Normal 0.2-1.0 [facility] Comment on above: Performed By: #### H STROPN, BNP, BMP #### [facility] [address] [place] [address] Dr. Trevor Nichols Calcium [Mass/Vol] 8.8 mg/dL Normal 8.5-10.1 [facility] Comment on above: Performed By: #### H STROPN, BNP, BMP #### [facility] [address] [address] [address] Trevor Nichols Chloride [Moles/Vol] 106 mmol/L Normal 98-107 [facility] Comment on above: Performed By: #### H STROPN, BNP, BMP #### [facility] [address] [address] [address] Trevor Nichols CO2 [Moles/Vol] 24.3 mmol/L Normal 21.0-32.0 [facility] Comment on above: Performed By: #### H STROPN, BNP, BMP #### [facility] [address] [place] [address] Dr. Trevor Nichols Creatinine [Mass/Vol] 1.35 mg/dL Critically high 0.70-1.30 [facility] Comment on above: Performed By: #### H STROPN, BNP, BMP #### [facility] [address] [place] [address] Dr. Trevor Nichols EGFR-AF MALAGASY >60 Normal >=60 [facility] Comment on above: Performed By: #### H STROPN, BNP, BMP #### [facility] [address] [place] [address] Dr. Trevor Nichols EGFR-NON AF MALAGASY 52 mL/min/1.73m2 Critically low >=60 [facility] Comment on above: Performed By: #### H STROPN, BNP, BMP #### [facility] [address] [address] [address] Trevor Nichols Globulin (S) [Mass/Vol] 3.8 g/dL Normal [facility] Comment on above: Performed By: #### H STROPN, BNP, BMP #### [facility] [address] [address] [address] Trevor Nichols Glucose [Mass/Vol] 103 mg/dL Normal 74-106 [facility] Comment on above: Performed By: #### H STROPN, BNP, BMP #### [facility] [address] [address] [address] Trevor Nichols Potassium [Moles/Vol] 3.8 mmol/L Normal 3.5-5.1 [facility] Comment on above: Performed By: #### H STROPN, BNP, BMP #### [facility] [address] [place] [address] Dr. Trevor Nichols Protein [Mass/Vol] 7.2 g/dL Normal 6.4-8.2 [facility] Comment on above: Performed By: #### H STROPN, BNP, BMP #### [facility] [address] [place] [address] Dr. Trevor Nichols Sodium [Moles/Vol] 140 mmol/L Normal 136-145 [facility] Comment on above: Performed By: #### H STROPN, BNP, BMP #### [facility] [address] [place] [address] Dr. Trevor Nichols Urea nitrogen [Mass/Vol] 22.0 mg/dL Critically high 7.0-18.0 [facility] Comment on above: Performed By: #### H STROPN, BNP, BMP #### [facility] [address] [place] [address] Dr. Trevor Nichols Urea nitrogen/Creatinine [Mass ratio] 16.3 mg/mg Normal [facility] Comment on above: Performed By: #### H STROPN, BNP, BMP #### [facility] [address] [place] [address] Dr. Trevor Nichols TSHon 02-05-2022 TSH 3.360 uIU/mL Normal 0.358-3.740 [facility] Comment on above: Performed By: #### H STROPN, BNP, BMP #### [facility] [address] [place] [address] Dr. Trevor Nichols XR CHEST 2 Von [...] FLOREZ Date: 2022-02-05 17:03 Normal [facility] XR BONE SURVEYon 09-25-2021 XR BONE SURVEY [...] by: SHAY BERNSTEIN Date: 2021-09-25 07:30 Normal [facility] PROTEIN ELECTROPHERESISon Albumin [Mass/Vol] 3.2 g/dL Normal 2.9-4.4 [facility] Comment on above: Performed By: #### P RTELEC ####[facility] [address] [place] [address]Dr. Trevor Nichols Albumin/Globulin [Mass ratio] 1.1 {ratio} Normal 0.7-1.7 [facility] Comment on above: Performed By: #### P RTELEC ####[facility] [address] [place] [address]Dr. Trevor Nichols Dexcf-1-Hlzsqylz 0.3 g/dL Normal 0.0-0.4 [facility] Comment on above: Performed By: #### P RTELEC ####[facility] [address] [place], [place] [address]Dr. Trevor Nichols Isyea-0-Jvavqwet 0.8 g/dL Normal 0.4-1.0 [facility] Comment on above: Performed By: #### P RTELEC ####[facility] [address] [place], [place] [address]Dr. Trevor Nichols Beta Globulin 1.0 g/dL Normal 0.7-1.3 [facility] Comment on above: Performed By: #### P RTELEC ####[facility] [address] [place], [place] [address]Dr. Trevor Nichols Gamma Globulin 0.8 g/dL Normal 0.4-1.8 [facility] Comment on above: Performed By: #### P RTELEC ####[facility] [address] [place] [address]Dr. Vivilan Nichols Globulin (S) [Mass/Vol] 2.9 g/dL Normal 2.2-3.9 [facility] Comment on above: Performed By: #### P RTELEC ####[facility] [address] [address]Dr. Vivilan Nichols M-Jorge 0.1 g/dL Critically high Not Observed [facility] Comment on above: Performed By: #### P RTELEC ####[facility] [address] [place] [address]DrJeffery Nichols PDF . Normal [facility] Comment on above: Performed By: #### P RTELEC ####[facility] [address] [place] [address]Dr. Trevor Nichols Please note: Comment Normal [facility] Comment on above: Result Comment: Prot ein electrophoresis scan will follow via computer, mail, or handy worker delivery. Performed By: #### P RTELEC ####[facility] [address] [place] [address]Dr. Trevor Nichols Protein [Mass/Vol] 6.1 g/dL Normal 6.0-8.5 [facility] Comment on above: Performed By: #### P RTELEC ####[facility] [address] [place] [address]DrJeffery Nichols PROF CHEM 8 (BAS METB)on Anion gap [Moles/Vol] 16.3 mmol/L Normal [facility] Comment on above: Performed By: #### H STROPN, BNP, BMP #### [facility] [address] [address] [address] Trevor Nichols Calcium [Mass/Vol] 9.1 mg/dL Normal 8.4-10.2 [facility] Comment on above: Performed By: #### H STROPN, BNP, BMP #### [facility] [address] [address] [address] Trevor Nichols Chloride [Moles/Vol] 104 mmol/L Normal 98-107 [facility] Comment on above: Performed By: #### H STROPN, BNP, BMP #### [facility] [address] [address] [address] Trevor Nichols CO2 [Moles/Vol] 23.3 mmol/L Normal 22.0-30.0 [facility] Comment on above: Performed By: #### H STROPN, BNP, BMP #### [facility] [address] [address] [address] Trevor Nichols Creatinine [Mass/Vol] 1.28 mg/dL Critically high 0.66-1.25 [facility] Comment on above: Performed By: #### H STROPN, BNP, BMP #### [facility] [address] [address] [address] Trevor Nichols EGFR-AF MALAGASY >60 Normal >=60 [facility] Comment on above: Performed By: #### H STROPN, BNP, BMP #### [facility] [address] [place] [address] Dr. Trevor Nichols EGFR-NON AF MALAGASY 55 mL/min/1.73m2 Critically low >=60 [facility] Comment on above: Performed By: #### H STROPN, BNP, BMP #### [facility] [address] [place] [address] Dr. Trevor Nichols Glucose [Mass/Vol] 98 mg/dL Normal 74-106 [facility] Comment on above: Performed By: #### H STROPN, BNP, BMP #### [facility] [address] [place] [address] Dr. Trevor Nichols Potassium [Moles/Vol] 3.6 mmol/L Normal 3.4-5.0 [facility] Comment on above: Performed By: #### H STROPN, BNP, BMP #### [facility] [address] [place] [address] Dr. Trevor Nichols Sodium [Moles/Vol] 140 mmol/L Normal 137-145 [facility] Comment on above: Performed By: #### H STROPN, BNP, BMP #### [facility] [address] [place] [address] Dr. Trevor Nichols Urea nitrogen [Mass/Vol] 25.0 mg/dL Critically high 9.0-20.0 [facility] Comment on above: Performed By: #### H STROPN, BNP, BMP #### [facility] [address] [place] [address] Dr. Trevor Nichols Urea nitrogen/Creatinine [Mass ratio] 19.5 mg/mg Normal [facility] Comment on above: Performed By: #### H STROPN, BNP, BMP #### [facility] [address] [place] [address] Dr. Trevor Nichols XR MODIFIED BARIUM SWALLOWon [...] BERNSTEIN Date: 2021-09-05 10:40 Normal [facility] CULTURE SPUTUMon 08-01-2021 CULTURE SPUTUM Isolate 1 [...] Trimethoprim/Sulfamethoxaz ole <=20 S F Normal [facility] Comment on above: Performed By: #### H STROPN, BNP, BMP #### [facility] [address], [place] [address] Dr. Trevor Nichols SPUTUM GRAM STAINon 07-30-20 21 COMMENTS Normal [facility] Comment on above: Performed By: #### S PUTGS ####[facility] [address] [place], [place] [address]WvDr. Trevor Nichols DIPHTHEROIDS Normal [facility] Comment on above: Performed By: #### S PUTGS ####[facility] [address] [place] [address]Dr. Trevor Nichols EPITHELIALS >25 Normal [facility] Comment on above: Performed By: #### S PUTGS ####[facility] [address] [place] [place] [address]Dr. Trevor Nichols FUNGAL ELEMENTS Normal [facility] Comment on above: Performed By: #### S PUTGS ####[facility] [address] [place] [address]Dr. Trevor Nichols GRAM NEG BACILLI RARE Normal [facility] Comment on above: Performed By: #### S PUTGS ####[facility] [address] [place], [place] [address]Dr. Treovr Nichols GRAM NEG DIPPLOCOCCI Normal [facility] Comment on above: Performed By: #### S PUTGS ####[facility] [address] [place], [place] [address]Dr. Trevor Nichols GRAM POS BACILLI MANY Normal [facility] Comment on above: Performed By: #### S PUTGS ####[facility] Rx[address] [place], [place] [address]Dr. Trevor Nichols GRAM POSITIVE COCCI MANY Normal [facility] Comment on above: Performed By: #### S PUTGS ####[facility] [address] [place], [place] [address]Dr. Trevor Nichlos WBC (Bld) [#/Vol] 10*3/uL Normal [facility] Comment on above: Performed By: #### S PUTGS ####[facility] [address] [place], [place] [address]Dr. Trevor Nichols ECHOCARDIO M/2D COMPLETEon 1 09-24-2020 ECHOCARDIO M/2D COMPLETE Patient: CHIKI JUAREZ Exam Date: 07/24/2021 : 1945 Gender:M Ordering : [employer] Admission #: [id number] Family : DR WILL SHERWOOD . Order #: [id number] CLICK HERE TO VIEW EXAM ECHOCARDIOGRAM REPORT [...] M.D. on 07/24/2021 at 20:08 Normal [facility] CBC W MANUAL DIFFon -22-20 21 ATYPICAL LYMPH # Normal [facility] Comment on above: Performed By: #### H STROPN, BNP, BMP #### [facility] [address] [place] [address] Dr. Trevor Nichols ATYPICAL LYMPH % Normal [facility] Comment on above: Performed By: #### H STROPN, BNP, BMP #### [facility] [address] [place] [address] Dr. Trevor Nichols BAND # 0.1 103/ul Normal 0.0-0.3 [facility] Comment on above: Performed By: #### H STROPN, BNP, BMP #### [facility] [address] [place] [address] Dr. Trevor Nichols BAND % 2 % Normal 0-5 [facility] Comment on above: Performed By: #### H STROPN, BNP, BMP #### [facility] [address] [place] [address] Dr. Trevor Nichols BASOM # 0.00 103/ul Normal 0.00-0.10 [facility] Comment on above: Performed By: #### H STROPN, BNP, BMP #### [facility] [address] [place] [address] Dr. Trevor Nichols BASOM % 0.0 % Critically low 0.2-2.0 [facility] Comment on above: Performed By: #### H STROPN, BNP, BMP #### [facility] [address] [place] [address] Dr. Trevor Nichols BLAST # Normal [facility] Comment on above: Performed By: #### H STROPN, BNP, BMP #### [facility] [address] [place] [address] Dr. Trevor Nichols BLAST % Normal [facility] Comment on above: Performed By: #### H STROPN, BNP, BMP #### [facility] [address] [place] [address] Dr. Trevor Nichols CORRECTED WBC Normal 4.0-11.0 [facility] Comment on above: Performed By: #### H STROPN, BNP, BMP #### [facility] [address] [place] [address] Dr. Trevor Nichols EOS # 0.06 103/ul Normal 0.00-0.70 [facility] Comment on above: Performed By: #### H STROPN, BNP, BMP #### [facility] [address] [place], [place] [address] Dr. Trevor Nichols EOS% 1.0 % Normal 0.9-7.0 [facility] Comment on above: Performed By: #### H STROPN, BNP, BMP #### [facility] [address] [address] [address] Trevor Nichols HCT 31.6 % Critically low 42.0-54.0 [facility] Comment on above: Performed By: #### H STROPN, BNP, BMP #### [facility] [address] [address] [address] Trevor Nichols HGB 9.7 g/dl Critically low 14.0-18.0 [facility] Comment on above: Performed By: #### H STROPN, BNP, BMP #### [facility] [address] [place] [address] Dr. Trevor Nichols LYMPHM # 0.46 103/ul Critically low 1.20-3.80 [facility] Comment on above: Performed By: #### H STROPN, BNP, BMP #### [facility] [address] [place] [address] Dr. Trevor Nichols LYMPHM% 8.0 % Critically low 20.5-60.0 [facility] Comment on above: Performed By: #### H STROPN, BNP, BMP #### [facility] [address] [place] [address] Dr. Trevor Nichols MACROCYTOSIS 1+ Normal [facility] Comment on above: Performed By: #### H STROPN, BNP, BMP #### [facility] [address] [place] [address] Dr. Trevor Nichols MCH 33.6 pg Normal 25.9-34.0 [facility] Comment on above: Performed By: #### H STROPN, BNP, BMP #### [facility] [address] [place] [address] Dr. Trevor Nichols MCHC 30.7 g/dl Normal 29.9-35.2 [facility] Comment on above: Performed By: #### H STROPN, BNP, BMP #### [facility] [address] [place] [address] Dr. Trevor Nichols MCV 109.3 fL Critically high 80.0-94.0 [facility] Comment on above: Performed By: #### H STROPN, BNP, BMP #### [facility] [address] [address] [address] Trevor Nichols METAMYELOCYTE # 0.1 103/ul Normal [facility] Comment on above: Performed By: #### H STROPN, BNP, BMP #### [facility] [address] [address] [address] Trevor Nichols METAMYELOCYTE % 2 % Normal [facility] Comment on above: Performed By: #### H STROPN, BNP, BMP #### [facility] [address] [place] [address] Dr. Trevor Nichols MONOM# 2.22 103/ul Critically high 0.30-0.80 [facility] Comment on above: Performed By: #### H STROPN, BNP, BMP #### [facility] [address] [place] [address] Dr. Trevor Nichols MONOM% 39.0 % Critically high 1.7-12.0 [facility] Comment on above: Performed By: #### H STROPN, BNP, BMP #### [facility] [address] [place] [address] Dr. Trevor Nichols MPV 9.4 fL Critically low 9.5-13.5 [facility] Comment on above: Performed By: #### H STROPN, BNP, BMP #### [facility] [address] [place] [address] Dr. Trevor Nichols MYELOCYTE # 0.3 103/ul Normal [facility] Comment on above: Performed By: #### H STROPN, BNP, BMP #### [facility] [address] [place] [address] Dr. Trevor Nichols MYELOCYTE % 6 % Normal [facility] Comment on above: Performed By: #### H STROPN, BNP, BMP #### [facility] [address] [place] [address] Dr. Trevor Nichols NRBC Normal [facility] Comment on above: Performed By: #### H STROPN, BNP, BMP #### [facility] [address] [address] [address] Trevor Nichols PLT 202 103/ul Normal 150-450 [facility] Comment on above: Performed By: #### H STROPN, BNP, BMP #### [facility] [address] [place], [place] [address] Dr. Trevor Nichols RBC 2.89 106/ul Critically low 4.70-6.10 [facility] Comment on above: Performed By: #### H STROPN, BNP, BMP #### [facility] [address] [address] [address] Trevor Nichols RDW 15.4 % Critically high 11.0-15.0 [facility] Comment on above: Performed By: #### H STROPN, BNP, BMP #### [facility] [address] [address] [address] Trevor Nichols SEG # 2.39 103/ul Normal 1.40-6.50 [facility] Comment on above: Performed By: #### H STROPN, BNP, BMP #### [facility] [address] [address] [address] Trevor Nichols SEG % 42.0 % Critically low 43.0-75.0 [facility] Comment on above: Performed By: #### H STROPN, BNP, BMP #### [facility] [address] [address] [address] Trevor Nichols WBC 5.7 103/ul Normal 4.0-11.0 [facility] Comment on above: Performed By: #### H STROPN, BNP, BMP #### [facility] [address] [address] [address] Trevor Nichols PROF CHEM 8 (BAS METB)on Anion gap [Moles/Vol] 13.1 mmol/L Normal [facility] Comment on above: Performed By: #### B MP ####[facility] [address] [place] [address]Dr. Trevor Nichols Calcium [Mass/Vol] 8.8 mg/dL Normal 8.4-10.2 [facility] Comment on above: Performed By: #### B MP ####[facility] [address] [place] [address]Dr. Trevor Simone Chloride [Moles/Vol] 104 mmol/L Normal 98-107 [facility] Comment on above: Performed By: #### B MP ####[facility] [address] [place] [place] [address]Dr. Vivifrancie Simone CO2 [Moles/Vol] 24.1 mmol/L Normal 22.0-30.0 [facility] Comment on above: Performed By: #### B MP ####[facility] [address] [place], [place] [address]Dr. Vivifrancie Simone Creatinine [Mass/Vol] 1.26 mg/dL Critically high 0.66-1.25 [facility] Comment on above: Performed By: #### B MP ####[facility] [address] [place], [place] [address]Dr. Vivifrancie Simone EGFR-AF MALAGASY >60 Normal >=60 [facility] Comment on above: Performed By: #### B MP ####[facility] [address] [place], [place] [address]Dr. Vivifrancie Simone EGFR-NON AF MALAGASY 56 mL/min/1.73m2 Critically low >=60 [facility] Comment on above: Performed By: #### B MP ####[facility] [address] [place], [place] [address]Dr. Trevor Nichols Glucose [Mass/Vol] 98 mg/dL Normal 74-106 [facility] Comment on above: Performed By: #### B MP ####[facility] [address] [place], [place] [address]Dr. Trevor Nichols Potassium [Moles/Vol] 4.2 mmol/L Normal 3.4-5.0 [facility] Comment on above: Performed By: #### B MP ####[facility] [address] [place], [place] [address]Dr. Trevor Nichols Sodium [Moles/Vol] 137 mmol/L Normal 137-145 [facility] Comment on above: Performed By: #### B MP ####[facility] [address] [place] [address]Dr. Trevor Simone Urea nitrogen [Mass/Vol] 20.0 mg/dL Normal 9.0-20.0 [facility] Comment on above: Performed By: #### B MP ####[facility] [address] [place], [place] [address]Dr. Trevor Nichols Urea nitrogen/Creatinine [Mass ratio] 15.9 mg/mg Normal [facility] Comment on above: Performed By: #### B MP ####[facility] [address] [place], [place] [address]Dr. Vivifrancie Nichols CBC AUTO DIFFon 05-16-2021 BASO # 0.0 103/ul Normal 0.0-0.1 [facility] Comment on above: Performed By: #### C BC ####[facility] [address] [place], [place] [address]Dr. Trevor Nichols Basophils/100 WBC (Bld) 0.2 % Normal 0.2-2.0 [facility] Comment on above: Performed By: #### C BC ####[facility] [address] [place], [place] [address]Dr. Trevor Nichols EO # 0.0 103/ul Normal 0.0-0.7 [facility] Comment on above: Performed By: #### C BC ####[facility] [address] [place], [place] [address]Dr. Trevor Nichols Eosinophils/100 WBC (Bld) 0.0 % Critically low 0.9-7.0 [facility] Comment on above: Performed By: #### C BC ####[facility] [address] [place], [place] [address]Dr. Trevor Nichols Erythrocyte distribution width (RBC) [Ratio] 15.1 % Critically high 11.0-15.0 [facility] Comment on above: Performed By: #### C BC ####[facility] [address] [place], [place] [address]Dr. Trevor Nichols Hematocrit (Bld) [Volume fraction] 32.9 % Critically low 42.0-54.0 [facility] Comment on above: Performed By: #### C BC ####[facility] [address] [place] [address]DrJeffery Nichols Hemoglobin (Bld) [Mass/Vol] 10.5 g/dL Critically low 14.0-18.0 [facility] Comment on above: Performed By: #### C BC ####[facility] Ns[address] [place], [place] [address]DrJeffery Nichols IG # 0.29 10e3/ul Critically high 0.00-0.03 [facility] Comment on above: Performed By: #### C BC ####[facility] [address] [place], [place] [address]DrJeffery Nichols IG % 6.5 % Critically high 0.0-0.5 [facility] Comment on above: Performed By: #### C BC ####[facility] [address] [place], [place] [address]DrJeffery Nichols LYMPH # 0.2 103/ul Critically low 1.2-3.8 [facility] Comment on above: Performed By: #### C BC ####[facility] [address] [place], [place] [address]DrJeffery Nichols Lymphocytes/100 WBC (Bld) 5.4 % Critically low 20.5-60.0 [facility] Comment on above: Performed By: #### C BC ####[facility] X[address]ts[address] [place], [place] [address]DrJeffery Nichols MANUAL DIFF REQ NO Normal [facility] Comment on above: Performed By: #### C BC ####[facility] [address] [place], [place] [address]DrJeffery Nichols MCH (RBC) [Entitic mass] 33.8 pg Normal 25.9-34.0 [facility] Comment on above: Performed By: #### C BC ####[facility] [address] [place], [place] [address]DrJeffery Nichols MCHC (RBC) [Mass/Vol] 31.9 g/dL Normal 29.9-35.2 [facility] Comment on above: Performed By: #### C BC ####[facility] [address] [place] [address]DrJeffery Nichols MCV (RBC) [Entitic vol] 105.8 fL Critically high 80.0-94.0 [facility] Comment on above: Performed By: #### C BC ####[facility] [address] [place], [place] [address]DrJeffery Nichols MONO # 0.3 103/ul Normal 0.3-0.8 [facility] Comment on above: Performed By: #### C BC ####[facility] [address] [place], [place] [address]DrJeffery Nichols Monocytes/100 WBC (Bld) 7.6 % Normal 1.7-12.0 [facility] Comment on above: Performed By: #### C BC ####[facility] [address] [place], [place] [address]DrJeffery Nichols NEUT # 3.6 103/ul Normal 1.4-6.5 [facility] Comment on above: Performed By: #### C BC ####[facility] [address] [place], [place] [address]DrJeffery Nichols Neutrophils/100 WBC (Bld) 80.3 % Critically high 43.0-75.0 [facility] Comment on above: Performed By: #### C BC ####[facility] Y[address] [place], [place] [address]DrJeffery Nichols Platelet mean volume (Bld) [Entitic vol] 10.2 fL Normal 9.5-13.5 [facility] Comment on above: Performed By: #### C BC ####[facility] [address] [place], [place] [address]DrJeffery Nichols PLT 192 103/ul Normal 150-450 [facility] Comment on above: Performed By: #### C BC ####[facility] [address] [place], [place] [address]DrJeffery Nichols RBC 3.11 106/ul Critically low 4.70-6.10 [facility] Comment on above: Performed By: #### C BC ####[facility] [address] [place], [place] [address]SkJeffery Nichols WBC 4.5 103/ul Normal 4.0-11.0 [facility] Comment on above: Performed By: #### C BC ####[facility] [address] [place], [place] [address] STROKE HEAD WOon 05-16-20 21 [...] SHAY BERNSTEIN Date: 2021-05-16 14:45 Normal [facility] CTA NECK WO W CONon 05-16-20 [...] SHAY BERNSTEIN Date: 2021-05-16 16:53 Normal [facility] IRON AND TIBCon 05-16-2021 % SATURATION 16.2 % Normal [facility] Comment on above: Performed By: #### F ETIBC, B12FOL #### [facility] [address] [address] [address] Trevor Nichols Iron [Mass/Vol] 32.0 ug/dL Critically low 49.0-181.0 [facility] Comment on above: Performed By: #### F ETIBC, B12FOL #### [facility] [address] [address] [address] Trevor Nichols TIBC DIRECT 198.0 ug/dL Critically low 261.0-497.0 [facility] Comment on above: Performed By: #### F ETIBC, B12FOL #### [facility] [address] [address] [address] Trevor Nichols PROF CHEM 8 (BAS METB)on Anion gap [Moles/Vol] 14.9 mmol/L Normal [facility] Comment on above: Performed By: #### B MP #### [facility] [address] [address] [address] Trevor Nichols Calcium [Mass/Vol] 9.2 mg/dL Normal 8.4-10.2 [facility] Comment on above: Performed By: #### B MP #### [facility] [address] [address] [address] Trevor Nichols Chloride [Moles/Vol] 105 mmol/L Normal 98-107 [facility] Comment on above: Performed By: #### B MP #### [facility] [address] [place] [address] Dr. Trevor Nichols CO2 [Moles/Vol] 21.6 mmol/L Critically low 22.0-30.0 [facility] Comment on above: Performed By: #### B MP #### [facility] [address] [place] [address] Dr. Trevor Nichols Creatinine [Mass/Vol] 1.36 mg/dL Critically high 0.66-1.25 [facility] Comment on above: Performed By: #### B MP #### [facility] [address] [place] [address] Dr. Trevor Nichols EGFR-AF MALAGASY >60 Normal >=60 [facility] Comment on above: Performed By: #### B MP #### [facility] [address] [place] [address] Dr. Trevor Nichols EGFR-NON AF MALAGASY 51 mL/min/1.73m2 Critically low >=60 [facility] Comment on above: Performed By: #### B MP #### [facility] [address] [address] [address] Trevor Nichols Glucose [Mass/Vol] 206 mg/dL Critically high 74-106 [facility] Comment on above: Performed By: #### B MP #### [facility] [address] [place] [address] Dr. Trevor Nichols Potassium [Moles/Vol] 4.5 mmol/L Normal 3.4-5.0 [facility] Comment on above: Performed By: #### B MP #### [facility] [address] [place] [address] Dr. Trevor Nichols Sodium [Moles/Vol] 137 mmol/L Normal 137-145 [facility] Comment on above: Performed By: #### B MP #### [facility] [address] [place] [address] Dr. Trevor Nichols Urea nitrogen [Mass/Vol] 26.0 mg/dL Critically high 9.0-20.0 [facility] Comment on above: Performed By: #### B MP #### [facility] [address] [place] [address] Dr. Trevor Nichols Urea nitrogen/Creatinine [Mass ratio] 19.1 mg/mg Normal [facility] Comment on above: Performed By: #### B MP #### [facility] [address] [place] [address] Dr. Trevor Nichols VIT B12 AND FOLATEon 021 Cobalamin (Vitamin B12) [Mass/Vol] pg/mL Critically high 239.0-931.0 [facility] Comment on above: Performed By: #### F ETIBC, B12FOL #### [facility] [address] [place] [address] Dr. Trevor Nichols FOLATE 15.40 ng/mL Normal >=2.76 [facility] Comment on above: Performed By: #### F ETIBC, B12FOL #### [facility] [address] [place] [address] Dr. Trevor Nichols BNPon 05-15-2021 Natriuretic peptide B (Bld) [Mass/Vol] 379.0 pg/mL Normal <=900.0 [facility] Comment on above: Performed By: #### H STROPN, BNP, BMP #### [facility] [address] [place] [address] Dr. Trevor Nichols CBC W MANUAL DIFFon 05-15-20 21 ATYPICAL LYMPH # Normal [facility] Comment on above: Performed By: #### H STROPN, BNP, BMP #### [facility] [address] [place] [address] Dr. Trevor Nichols ATYPICAL LYMPH % Normal [facility] Comment on above: Performed By: #### H STROPN, BNP, BMP #### [facility] [address] [address] [address] Trevor Nichols BAND # 0.0 103/ul Normal 0.0-0.3 [facility] Comment on above: Performed By: #### H STROPN, BNP, BMP #### [facility] [address] [address] [address] Trevor Nichols BAND % 1 % Normal 0-5 [facility] Comment on above: Performed By: #### H STROPN, BNP, BMP #### [facility] [address] [place] [address] Dr. Trevor Nichols BASOM # 0.00 103/ul Normal 0.00-0.10 [facility] Comment on above: Performed By: #### H STROPN, BNP, BMP #### [facility] [address] [place] [address] Dr. Trevor Nichols BASOM % 0.0 % Critically low 0.2-2.0 [facility] Comment on above: Performed By: #### H STROPN, BNP, BMP #### [facility] [address] [place] [address] Dr. Trevor Nichols BLAST # Normal [facility] Comment on above: Performed By: #### H STROPN, BNP, BMP #### [facility] [address] [place] [address] Dr. Trevor Nichols BLAST % Normal [facility] Comment on above: Performed By: #### H STROPN, BNP, BMP #### [facility] [address] [place] [address] Dr. Trevor Nichols BRENDA CELLS SLIGHT Normal [facility] Comment on above: Performed By: #### H STROPN, BNP, BMP #### [facility] [address] [place] [address] Dr. Trevor Nichols CORRECTED WBC Normal 4.0-11.0 [facility] Comment on above: Performed By: #### H STROPN, BNP, BMP #### [facility] [address] [address] [address] Trevor Nichols EOS # 0.05 103/ul Normal 0.00-0.70 [facility] Comment on above: Performed By: #### H STROPN, BNP, BMP #### [facility] [address] [address] [address] Trevor Nichols EOS% 1.0 % Normal 0.9-7.0 [facility] Comment on above: Performed By: #### H STROPN, BNP, BMP #### [facility] [address] [address] [address] Trevor Nichols HCT 32.5 % Critically low 42.0-54.0 [facility] Comment on above: Performed By: #### H STROPN, BNP, BMP #### [facility] [address] [address] [address] Trevor Nichols HGB 10.5 g/dl Critically low 14.0-18.0 [facility] Comment on above: Performed By: #### H STROPN, BNP, BMP #### [facility] [address] [address] [address] Trevor Nichols HYPOCHROMASIA 2+ Normal [facility] Comment on above: Performed By: #### H STROPN, BNP, BMP #### [facility] [address] [address] [address] Trevor Nichols LYMPHM # 1.03 103/ul Critically low 1.20-3.80 [facility] Comment on above: Performed By: #### H STROPN, BNP, BMP #### [facility] [address] [address] [address] Trevor Nichols LYMPHM% 22.0 % Normal 20.5-60.0 [facility] Comment on above: Performed By: #### H STROPN, BNP, BMP #### [facility] [address] [address] [address] Trevor Nichols MACROCYTOSIS 2+ Normal [facility] Comment on above: Performed By: #### H STROPN, BNP, BMP #### [facility] [address] [address] [address] Trevor Nichols MCH 34.5 pg Critically high 25.9-34.0 [facility] Comment on above: Performed By: #### H STROPN, BNP, BMP #### [facility] [address] [address] [address] Trevor Nichols MCHC 32.3 g/dl Normal 29.9-35.2 [facility] Comment on above: Performed By: #### H STROPN, BNP, BMP #### [facility] [address] [address] [address] Trevor Nichols MCV 106.9 fL Critically high 80.0-94.0 [facility] Comment on above: Performed By: #### H STROPN, BNP, BMP #### [facility] [address] [address] [address] Trevor Nichols METAMYELOCYTE # Normal [facility] Comment on above: Performed By: #### H STROPN, BNP, BMP #### [facility] [address] [address] [address] Trevor Nichols METAMYELOCYTE % Normal [facility] Comment on above: Performed By: #### H STROPN, BNP, BMP #### [facility] [address] [address] [address] Trevor Nichols MONOM# 1.74 103/ul Critically high 0.30-0.80 [facility] Comment on above: Performed By: #### H STROPN, BNP, BMP #### [facility] [address] [address] [address] Trevor Nichols MONOM% 37.0 % Critically high 1.7-12.0 [facility] Comment on above: Performed By: #### H STROPN, BNP, BMP #### [facility] [address] [address] [address] Trevor Nichols MPV 10.8 fL Normal 9.5-13.5 [facility] Comment on above: Performed By: #### H STROPN, BNP, BMP #### [facility] [address] [address] [address] Trevor Nichols MYELOCYTE # Normal [facility] Comment on above: Performed By: #### H STROPN, BNP, BMP #### [facility] [address] [address] [address] Trevor Nichols MYELOCYTE % Normal [facility] Comment on above: Performed By: #### H STROPN, BNP, BMP #### [facility] [address] [address] [address] Trevor Nichols NRBC Normal [facility] Comment on above: Performed By: #### H STROPN, BNP, BMP #### [facility] [address] [address] [address] Trevor Nichols PLT 222 103/ul Normal 150-450 [facility] Comment on above: Performed By: #### H STROPN, BNP, BMP #### [facility] [address] [place] [address] Dr. Trevor Nichols POIKILOCYTOSIS 2+ Normal [facility] Comment on above: Performed By: #### H STROPN, BNP, BMP #### [facility] [address] [place] [address] Dr. Trevor Nichols RBC 3.04 106/ul Critically low 4.70-6.10 [facility] Comment on above: Performed By: #### H STROPN, BNP, BMP #### [facility] [address] [place] [address] Dr. Trevor Nichols RDW 15.6 % Critically high 11.0-15.0 [facility] Comment on above: Performed By: #### H STROPN, BNP, BMP #### [facility] [address] [place] [address] Dr. Trevor Nichols SEG # 1.83 103/ul Normal 1.40-6.50 [facility] Comment on above: Performed By: #### H STROPN, BNP, BMP #### [facility] [address] [address] [address] Trevor Nichols SEG % 39.0 % Critically low 43.0-75.0 [facility] Comment on above: Performed By: #### H STROPN, BNP, BMP #### [facility] [address] [address] [address] Trevor Nichols TARGET CELLS 1+ Normal [facility] Comment on above: Performed By: #### H STROPN, BNP, BMP #### [facility] [address] [address] [address] Trevor Nichols TEAR DROP CELLS SLIGHT Normal [facility] Comment on above: Performed By: #### H STROPN, BNP, BMP #### [facility] [address] [address] [address] Trevor Nichols WBC 4.7 103/ul Normal 4.0-11.0 [facility] Comment on above: Performed By: #### H STROPN, BNP, BMP #### [facility] [address] [address] [address] Trevor Nichols CTA CHEST WO W [...] RAY SAWANT Date: 2021-05-15 11:15 Normal [facility] CULTURE BLOODon 05-15-2021 Microscopic examination of blood, culture Culture Observations: No growth at 5 days. Normal [facility] Comment on above: Performed By: #### H CHASITY BNP, BMP #### [facility] [address] [address] [address] Trevor Nichols Covid-19 PCR (CVDTB)on 04-18 SARS-CoV-2 (COVID-19) RNA DEVIN+probe Ql (Unsp spec) Not detected Normal NOT DETECTED [facility] Comment on above: Result Comment: When diagnostic testing is negative, the possibility of a false negative should be considered in the context of a patient's recent exposures and the presence of clinical signs and symptoms consistent with SARS-CoV-2. This test is not yet approved or cleared by the [place] Food and Drug Administration (FDA). This test was developed by [employer], [place], [place]. The performance characteristics of this test were validated by [facility]. The results are not intended to be used as the sole means for clinical diagnosis or patient management decisions. [facility] is authorized under Clinical Laboratory Improvement Amendments (CLIA) to perform high- complexity testing. Performed By: #### H CHASITY BNP, BMP #### [facility] [address] [address] [address] Trevor Nichols FREE T3on 05-15-2021 FREE T3 1.66 pg/mlL Critically low 2.77-5.27 [facility] Comment on above: Performed By: #### T SH, FT3 ####[facility] [address] [address]DrJeffery Nichols FREE T4on 05-15-2021 Free T4 [Mass/Vol] 1.06 ng/dL Normal 0.78-2.19 [facility] Comment on above: Performed By: #### F T4 ####[facility] [address] [address]DrJeffery Nichols LACTATE/LACTIC ACIDon 2020 Lactate [Moles/Vol] 1.2 mmol/L Normal 0.7-2.0 [facility] Comment on above: Performed By: #### L ACT ####[facility] [address] [address] Trevor Nichols Lactate [Moles/Vol] 1.5 mmol/L Normal 0.7-2.0 [facility] Comment on above: Performed By: #### L ACT ####[facility] [address] [address] Trevor Nichols PROF CHEM 8 (BAS METB)on Anion gap [Moles/Vol] 12.5 mmol/L Normal [facility] Comment on above: Performed By: #### H STROPN, BNP, BMP #### [facility] [address] [address] [address] Trevor Nichols Calcium [Mass/Vol] 8.4 mg/dL Normal 8.4-10.2 [facility] Comment on above: Performed By: #### H STROPN, BNP, BMP #### [facility] [address] [address] [address] Trevor Nichols Chloride [Moles/Vol] 106 mmol/L Normal 98-107 [facility] Comment on above: Performed By: #### H STROPN, BNP, BMP #### [facility] [address] [address] [address] Trevor Nichols CO2 [Moles/Vol] 24.8 mmol/L Normal 22.0-30.0 [facility] Comment on above: Performed By: #### H STROPN, BNP, BMP #### [facility] [address] [address] [address] Trevor Nichols Creatinine [Mass/Vol] 1.37 mg/dL Critically high 0.66-1.25 [facility] Comment on above: Performed By: #### H STROPN, BNP, BMP #### [facility] [address] [address] [address] Trevor Nichols EGFR-AF MALAGASY >60 Normal >=60 [facility] Comment on above: Performed By: #### H STROPN, BNP, BMP #### [facility] [address] [address] [address] Trevor Nichols EGFR-NON AF MALAGASY 51 mL/min/1.73m2 Critically low >=60 [facility] Comment on above: Performed By: #### H STROPN, BNP, BMP #### [facility] [address] [address] [address] Trevor Nichols Glucose [Mass/Vol] 114 mg/dL Critically high 74-106 [facility] Comment on above: Performed By: #### H STROPN, BNP, BMP #### [facility] [address] [address] [address] Trevor Nichols Potassium [Moles/Vol] 4.4 mmol/L Normal 3.4-5.0 [facility] Comment on above: Performed By: #### H STROPN, BNP, BMP #### [facility] [address] [address] [address] Trevor Nichols Sodium [Moles/Vol] 139 mmol/L Normal 137-145 [facility] Comment on above: Performed By: #### H STROPN, BNP, BMP #### [facility] [address] [address] [address] Trevor Nichols Urea nitrogen [Mass/Vol] 20.0 mg/dL Normal 9.0-20.0 [facility] Comment on above: Performed By: #### H STROPN, BNP, BMP #### [facility] [address] [address] [address] Trevor Nichols Urea nitrogen/Creatinine [Mass ratio] 14.6 mg/mg Normal [facility] Comment on above: Performed By: #### H STROPN, BNP, BMP #### [facility] [address] [address] [address] Trevor Nichols TROPONIN, HIGH SENSITIVITYon 05-15-2021 HSTROP 7.1 pg/mL Normal 4.0-42.2 [facility] Comment on above: Result Comment: CUT- OFF POINTS HAVE BEEN ESTABLISHED BASED ON THE FOURTH UNIVERSAL DEFINITIONS OF MYOCARDIAL INFARCTION. THE UPPER REFERENCE LIMIT (URL) OF TROPONIN, DEFINED THE 99TH PERCENTILE OF cTnI DISTRIBUTION IN A REFERENCE POPULATION, HAS BEEN CONFIRMED THE DECISION THRESHOLD FOR NM DIAGNOSIS. Performed By: #### H STROPN, BNP, BMP #### [facility] [address] [address] [address] Trevor Nichols TSHon 05-15-2021 TSH 1.972 uIU/mL Normal 0.470-4.680 [facility] Comment on above: Performed By: #### T SH, FT3 ####[facility] [address] [id number] Trevor Nichols TSH RANGE SEE BELOW Normal [facility] Comment on above: Result Comment: <0.3 4 UIU/ml HYPERTHYROID 0.34-5.60 UIU/ml EUTHYROID >5.60 UIU/ml HYPOTHYROID Performed By: #### T SH, FT3 ####[facility] [address] [address] Trevor Nichols D-DIMERon 05-14-2021 D-DIMER 0.76 mg/L FEU Critically high 0.19-0.50 [facility] Comment on above: Performed By: #### H STROPN, BNP, BMP #### [facility] [address] [address] [address] Trevor Nichols D-DIMER COMMENTS SEE BELOW Normal [facility] Comment on above: Result Comment: Incr [...] By: #### H STROPN, BNP, BMP #### [facility] [address] [address] [address] Trevor Nichols PROF CHEM 8 (BAS METB)on Anion gap [Moles/Vol] 12.0 mmol/L Normal [facility] Comment on above: Performed By: #### H STROPN, BNP, BMP #### [facility] [address] [address] [address] Trevor Nichols Calcium [Mass/Vol] 8.5 mg/dL Normal 8.4-10.2 [facility] Comment on above: Performed By: #### H STROPN, BNP, BMP #### [facility] [address] [address] [address] Trevor Nichols Chloride [Moles/Vol] 106 mmol/L Normal 98-107 [facility] Comment on above: Performed By: #### H STROPN, BNP, BMP #### [facility] [address] [place] [address] Dr. Trevor Nichols CO2 [Moles/Vol] 25.0 mmol/L Normal 22.0-30.0 [facility] Comment on above: Performed By: #### H STROPN, BNP, BMP #### [facility] [address] [place] [address] Dr. Trevor Nichols Creatinine [Mass/Vol] 1.61 mg/dL Critically high 0.66-1.25 [facility] Comment on above: Performed By: #### H STROPN, BNP, BMP #### [facility] [address] [place] [address] Dr. Trevor Nichols EGFR-AF MALAGASY 51 mL/min/1.73m2 Critically low >=60 [facility] Comment on above: Performed By: #### H STROPN, BNP, BMP #### [facility] [address] [place] [address] Dr. Trevor Nichols EGFR-NON AF MALAGASY 42 mL/min/1.73m2 Critically low >=60 [facility] Comment on above: Performed By: #### H STROPN, BNP, BMP #### [facility] [address] [address] [address] Trevor Nichols Glucose [Mass/Vol] 115 mg/dL Critically high 74-106 [facility] Comment on above: Performed By: #### H STROPN, BNP, BMP #### [facility] [address] [address] [address] Trevor Nichols Potassium [Moles/Vol] 4.0 mmol/L Normal 3.4-5.0 [facility] Comment on above: Performed By: #### H STROPN, BNP, BMP #### [facility] [address] [address] [address] Trevor Nichols Sodium [Moles/Vol] 139 mmol/L Normal 137-145 [facility] Comment on above: Performed By: #### H STROPN, BNP, BMP #### [facility] [address] [address] [address] Trevor Nichols Urea nitrogen [Mass/Vol] 20.0 mg/dL Normal 9.0-20.0 [facility] Comment on above: Performed By: #### H STROPN, BNP, BMP #### [facility] [address] [address] [address] Trevor Nichols Urea nitrogen/Creatinine [Mass ratio] 12.4 mg/mg Normal [facility] Comment on above: Performed By: #### H CHASITY, BNP, BMP #### [facility] [address] [address] [address] Trevor Nichols PROF CHEM 8 (BAS METB)on Anion gap [Moles/Vol] 19.5 mmol/L Normal [facility] Comment on above: Performed By: #### B MP ####[facility] [address] [address]DrJeffery Nichols Calcium [Mass/Vol] 9.1 mg/dL Normal 8.4-10.2 [facility] Comment on above: Performed By: #### B MP ####[facility] [address] [address]Dr[address] Trevor Nichols Chloride [Moles/Vol] 104 mmol/L Normal 98-107 [facility] Comment on above: Performed By: #### B MP ####[facility] [address] [address]DrJeffery Nichols CO2 [Moles/Vol] 19.6 mmol/L Critically low 22.0-30.0 [facility] Comment on above: Performed By: #### B MP ####[facility] [address] [id number]. Trevor Nichols Creatinine [Mass/Vol] 1.69 mg/dL Critically high 0.66-1.25 [facility] Comment on above: Performed By: #### B MP ####[facility] [address] [id number]. Trevor Nichols EGFR-AF MALAGASY 48 mL/min/1.73m2 Critically low >=60 [facility] Comment on above: Performed By: #### B MP ####[facility] [address] [id number]. Trevor Nichols EGFR-NON AF MALAGASY 40 mL/min/1.73m2 Critically low >=60 [facility] Comment on above: Performed By: #### B MP ####[facility] [address] [place], [place] [id number]. Trevor Nichols Glucose [Mass/Vol] 95 mg/dL Normal 74-106 [facility] Comment on above: Performed By: #### B MP ####[facility] [address] [id number]. Trevor Nichols Potassium [Moles/Vol] 5.4 mmol/L Critically high 3.4-5.0 [facility] [facility] Comment on above: Performed By: #### B MP ####[facility] Dxipmzopvr[address] [place], [place] [id number]. Trevor Nichols Sodium [Moles/Vol] 138 mmol/L Normal 137-145 [facility] Comment on above: Performed By: #### B MP ####[facility] Xetywnnacn[address] [place] [id number]. Trevor Nichols Urea nitrogen [Mass/Vol] 26.0 mg/dL Critically high 9.0-20.0 [facility] Comment on above: Performed By: #### B MP ####[facility] Acesqcilfp[address] [place], [place] [id number]. Trevor Simone Urea nitrogen/Creatinine [Mass ratio] 15.4 mg/mg Normal [facility] Comment on above: Performed By: #### B MP ####[facility] Wilhgckyjg4[address] [place], [place] [address]Dr. Trevor Nichols BNPon 04-29-2021 Natriuretic peptide B (Bld) [Mass/Vol] 421.0 pg/mL Normal <=900.0 [facility] Comment on above: Performed By: #### B GLOBAL REGULATORY AFFAIRS MANAGER, MG ####[facility] Xohkvxiv[address] [place] [address] Rose Marie CBC W MANUAL DIFFon 04-29-20 21 ATYPICAL LYMPH # 0.19 103/ul Normal [facility] Comment on above: Performed By: #### C JOBY ####[facility] Xalrjtmnkv[address] [place] [address] [place]#### PERSMR ####[facility] Piaietilhw555[address] [place], [place] [address]Dr. Trevor Nichols ATYPICAL LYMPH % 4 % Normal [facility] Comment on above: Performed By: #### C JOBY ####[facility] Cqpwegiczr[address] [place] [address] [place]#### PERSMR ####[facility] Tklukjauzy14[address] [place], [place] [address]Dr. Trevor Nichols BAND # 0.2 103/ul Normal 0.0-0.3 [facility] Comment on above: Performed By: #### C JOBY ####[facility] Jeszmzepju[address] [place] [address] [place]#### PERSMR ####[facility] Ovxqpjhrmz858[address] [place], [place] [address]Dr. Yilan Nichols BAND % 5 % Normal 0-5 [facility] Comment on above: Performed By: #### C JOBY ####[facility] Suitgwasmv145387 [place] [address] [place]#### PERSMR ####[facility] Vtjmhjcuen9[address] [place], [place] [address]Dr. Trevor Nichols BASOM # 0.05 103/ul Normal 0.00-0.10 [facility] Comment on above: Performed By: #### C JOBY ####[facility] Ytnbbqpjkz[address] [place], [place] [address] Rose Marie#### PERSMR ####[facility] [address]hu[address]rsqm[address] [place] [address]Dr. Trevor Nichols BASOM % 1.0 % Normal 0.2-2.0 [facility] Comment on above: Performed By: #### C JOBY ####[facility] Iwyqejtumh4[address] [place] [address] Rose Marie#### PERSMR ####[facility] Uwnpltrgtn4[address] [place] [address]Dr. Trevor Nichols BLAST # Normal [facility] Comment on above: Performed By: #### C JOBY ####[facility] Vyzxiezzoa[address] [place] [address] [place] Marie#### PERSMR ####[facility] Brvsehnfts4213[address] [place], [place] [address]Dr. Trevor Nichols BLAST % Normal [facility] Comment on above: Performed By: #### C JOBY ####[facility] Kozjztaluz[address] [place] [address] [place] Marie#### PERSMR ####[facility] Ovmvknkpnz99[address] [place], [place] [address]Dr. Trevor Nichols CORRECTED WBC Normal 4.0-11.0 [facility] Comment on above: Performed By: #### C JOBY ####[facility] Xfwmdjbpqh5[address] [place] [address] Rose Marie#### PERSMR ####[facility] Ufcnpkpujf180[address] [place], [place] [address]Dr. Trevor Nichols EOS # 0.00 103/ul Normal 0.00-0.70 [facility] Comment on above: Performed By: #### C JOBY ####[facility] Naxjkvotog[address] [place] [address] Rose Marie#### PERSMR ####[facility] Sihfjtuukn[address] [place], [place] [address]Dr. Trevor Nichols EOS% 0.0 % Critically low 0.9-7.0 [facility] Comment on above: Performed By: #### C JOBY ####[facility] Phoomgcera[address] [place] [address] Rose Marie#### PERSMR ####[facility] Jbbmiwpfgq783[address] [place], [place] [address]Dr. Trevor Nichols HCT 35.7 % Critically low 42.0-54.0 [facility] Comment on above: Performed By: #### C JOBY ####[facility] Lfosemtmnk444[address] [place] [address] [place] Marie#### PERSMR ####[facility] Ieglxflhlc[address] [place], [place] [id number]. Trevor Nichols HGB 11.7 g/dl Critically low 14.0-18.0 [facility] Comment on above: Performed By: #### Brodie HEMPHILL ####[facility] Xxdfnnzwyc[address] [place] [address] [place]#### PERSMR ####[facility] Oyyldwxaiu9715[address] [place], [place] [address]Dr. Trevor Nichols LYMPHM # 0.72 103/ul Critically low 1.20-3.80 [facility] Comment on above: Performed By: #### Brodie HEMPHILL ####[facility] Janmprovnh75[address] [place] [address] [place]#### PERSMR ####[facility] Btsuuwpyom1601[address] [place], [place] [address]Dr. Trevor Nichols LYMPHM% 15.0 % Critically low 20.5-60.0 [facility] Comment on above: Performed By: #### Brodie HEMPHILL ####[facility] Ybcwyluutw[address] [place] [address] Rose Marie#### PERSMR ####[facility] Copcrofewg045[address] [place], [place] [address]Dr. Trevor Nichols MCH 34.4 pg Critically high 25.9-34.0 [facility] Comment on above: Performed By: #### C JOBY ####[facility] Dzmchecuha8[address] [place] [address] Rose Marie#### PERSMR ####[facility] Rrkvuzrnis26[address] [place] [address]Dr. Trevor Nichols MCHC 32.8 g/dl Normal 29.9-35.2 [facility] Comment on above: Performed By: #### C JOBY ####[facility] Crxfvjuwov9[address] [place] [address] Rose Marie#### PERSMR ####[facility] Bcdbpezfsy255[address] [place], [place] [address]Dr. Trevor Nichols MCV 105.0 fL Critically high 80.0-94.0 [facility] Comment on above: Performed By: #### C JOBY ####[facility] Egcxnsmzkv[address] [place] [address] [place] Marie#### PERSMR ####[facility] Nghulxrmiw686[address] [place], [place] [address]Dr. Trevor Nichols METAMYELOCYTE # Normal [facility] Comment on above: Performed By: #### C JOBY ####[facility] Xgdbjbvsrg3239[address] [place] [address] [place] Marie#### PERSMR ####[facility] Uzxobzwpoz05[address] [place], [place] [address]Dr. Trevor Nichols METAMYELOCYTE % Normal [facility] Comment on above: Performed By: #### C JOBY ####[facility] Nqqrbinlaj[address] [place] [address] Rose Marie#### PERSMR ####[facility] Cwqdcyjjas[address] [place], [place] [address]Dr. Trevor Nichols MONOM# 1.25 103/ul Critically high 0.30-0.80 [facility] Comment on above: Performed By: #### C JOBY ####[facility] Rkvjypeulf456[address] [place] [address] Rose Marie#### PERSMR ####[facility] Yhabihlxnc2185[address] [place], [place] [address]Dr. Trevor Nichols MONOM% 26.0 % Critically high 1.7-12.0 [facility] Comment on above: Performed By: #### C JOBY ####[facility] [address]ycwoztgns17[address] [place] [address] Rose Marie#### PERSMR ####[facility] Sfilnibvvs8[address] [place] [address]Dr. Trevor Nichols MPV 10.5 fL Normal 9.5-13.5 [facility] Comment on above: Performed By: #### Brodie HEMPHILL ####[facility] Uikkjctnmw9756 [place] [address] Marie#### PERSMR ####[facility] Ossfrqtvqk6[address] [place] [address]Dr. Trevor Nichols MYELOCYTE # Normal [facility] Comment on above: Performed By: #### Brodie HEMPHILL ####[facility] Sqffopksxp[address] [place] [address] Rose Marie#### PERSMR ####[facility] Retkvhbtdh4[address] [place] [address]Dr. Trevor Nichols MYELOCYTE % Normal [facility] Comment on above: Performed By: #### Brodie HEMPHILL ####[facility] Puktbndjdc[address] [place] [address] [place] Marie#### PERSMR ####[facility] Fgemejbico9526[address] [place], [place] [address]Dr. Trevor Nichols NRBC Normal [facility] Comment on above: Performed By: #### Brodie HEMPHILL ####[facility] Jymhcobswq198[address] [place], [place] [address] [place]#### PERSMR ####[facility] Ssliuqpewd429[address] [place], [place] [address]Dr. Trevor Nichols PATH REVIEW INDICATED Normal [facility] Comment on above: Performed By: #### Brodie HEMPHILL ####[facility] Oaidxdmbps[address] [place] [address] [place] Marie#### PERSMR ####[facility] Zaijzkmhzh564[address] [place], [place] [address]Dr. Trevor Nichols PLT 158 103/ul Normal 150-450 [facility] Comment on above: Performed By: #### Brodie HEMPHILL ####[facility] Kjfjmyiuxu3087 [address] [place]#### PERSMR ####[facility] Ybulidjhlj8998 [place] [address]Dr. Trevor Nichols RBC 3.40 106/ul Critically low 4.70-6.10 [facility] Comment on above: Performed By: #### Brodie HEMPHILL ####[facility] Fdirzmaynn5371 [address] [place]#### PERSMR ####[facility] Msgfhtwiku8[address] [place] [address]Dr. Trevor Nichols RDW 15.6 % Critically high 11.0-15.0 [facility] Comment on above: Performed By: #### Brodie HEMPHILL ####[facility] Prmppjpyfz1627 [address] [place]#### PERSMR ####[facility] Ptesohpyxw9[address] [place] [address]Dr. Trevor Nichols SEG # 2.35 103/ul Normal 1.40-6.50 [facility] Comment on above: Performed By: #### Brodie HEMPHILL ####[facility] Vedjetpmxa[address] [place] [address] [place]#### PERSMR ####[facility] Etlqdrkvrm[address] [place] [address]Dr. Trevor Nichols SEG % 49.0 % Normal 43.0-75.0 [facility] Comment on above: Performed By: #### Brodie HEMPHILL ####[facility] Knpjnyqjlv2033 [address] [place]#### PERSMR ####[facility] Cqagvppopk15[address] [place] [address]Dr. Trevor Nichols WBC 4.8 103/ul Normal 4.0-11.0 [facility] Comment on above: Performed By: #### C JOBY ####[facility] Jrbzxdzbcl18[address] [place] [address] Rose Marie#### PERSMR ####[facility] Jjvnxmwdou44[address] [place] [address]Dr. Trevor Nichols MAGNESIUMon 04-29-2021 Magnesium [Mass/Vol] 2.4 mg/dL Critically high 1.6-2.3 [facility] Comment on above: Performed By: #### B GLOBAL REGULATORY AFFAIRS MANAGER, MG ####[facility] Tknnfmefmj6026 [address] Rose Marie PERIPHERAL SMEARon Pathologist Cyto stain Nom (Cvx/Vag) [ID] DR. BHARTI PARDO Normal [facility] Comment on above: Result Comment: Kate pheral blood smear reveals isolated monocytosis with unremarkable morphology. The neutrophils and platelets are morphologically unremarkable. No atypical lymphocytes or blasts are noted. A reactive process is favored. Clinical correlation is suggested. Dr Bharti Pardo 05/01/2021 Performed By: #### C JOBY ####[facility] Okcosgodcn[address] [place] [address] [place] Marie#### PERSMR ####[facility] Trmffuuzff[address] [place], [place] [address]DrJeffery Nichols VITAMIN D 25 OHon 04-29-2021 VIT D 25-OH 71.4 ng/mL Normal [facility] Comment on above: Performed By: #### V ITAD ####[facility] Duzkrzcsrv[address] [place] [address] Rose Marie VIT D RANGES SEE BELOW Normal [facility] Comment on above: Result Comment: <20 ng/mL Vit D deficient 20 - <30 ng/mL Vit D insufficient 30 - 100 ng/mL Vit D sufficient >100 ng/mL Potential Toxicity Performed By: #### V ITAD ####[facility] Jlkcunznvf[address] [place] [address] Rose Marie POC GLUCOSE LABon 06-30-2020 Glucose [Mass/Vol] 108 mg/dL High 70-100 [facility] Comment on above: Performed By: #### 4 1000, 57556 #### [facility] [address] [facility] [place] [address], [facility] [[email or web address]] Glucose [Mass/Vol] 165 mg/dL High 70-100 [facility] Comment on above: Performed By: #### 4 1000, 79650 #### [facility] [address] C REACTIVE PROTEINon 020 CRP [Mass/Vol] 27.8 mg/L High 0.0-7.0 [facility] Comment on above: Order Comment: No: D o not add to previous draw Performed By: #### 4 1000, 88762, 66833 #### [facility] [address] [place] [address], [facility] [[email or web address]] CBC COMPLETE BLOOD COUNTon 08-29-2019 Erythrocyte distribution width (RBC) [Ratio] 14.3 % Normal 11.5-15.0 [facility] Comment on above: Order Comment: No: D o not add to previous draw Performed By: #### 4 1000, 03153 #### [facility] [address] [place] [address], [facility] [[email or web address]] Hematocrit (Bld) [Volume fraction] 34.7 % Low 39.0-50.0 [facility] Comment on above: Order Comment: No: D o not add to previous draw Performed By: #### 4 1000, 48673 #### [facility] [address] [address], [facility] [[email or web address]] Hemoglobin (Bld) [Mass/Vol] 11.6 g/dL Low 13.0-17.0 [facility] Comment on above: Order Comment: No: D o not add to previous draw Performed By: #### 4 1000, 39596 #### [facility] [address] [place] [address], [facility] [[email or web address]] MCH (RBC) [Entitic mass] 35.5 pg High 27.0-33.0 [facility] Comment on above: Order Comment: No: D o not add to previous draw Performed By: #### 4 1000, 29211 #### [facility] [address] [place] [address], [facility] [[email or web address]] MCHC (RBC) [Mass/Vol] 33.4 g/dL Normal 32.0-35.0 [facility] Comment on above: Order Comment: No: D o not add to previous draw Performed By: #### 4 1000, 67131 #### [facility] [address] [place] [address], [facility] [[email or web address]] MCV (RBC) [Entitic vol] 106.1 fL High 82.0-98.0 [facility] Comment on above: Order Comment: No: D o not add to previous draw Performed By: #### 4 1000, 19453 #### [facility] [address] [place] [address], [facility] [[email or web address]] Nucleated RBC/100 WBC (Bld) [Ratio] 0 % Normal 0-0 [facility] Comment on above: Order Comment: No: D o not add to previous draw Performed By: #### 4 1000, 73701 #### [facility] [address] [place] [address], [facility] [[email or web address]] PLAT CNT 150 10*3/uL Normal 150-400 [facility] Comment on above: Order Comment: No: D o not add to previous draw Performed By: #### 4 1000, 78419 #### [facility] [address] [place] [place] [address], [facility] [[email or web address]] RBC (Bld) [#/Vol] 3.27 10*6/uL Low 4.20-5.70 [facility] Comment on above: Order Comment: No: D o not add to previous draw Performed By: #### 4 1000, 48815 #### [facility] [address] [place] [address], [facility] [[email or web address]] WBC (Bld) [#/Vol] 5.86 10*3/uL Normal 4.00-10.60 [facility] Comment on above: Order Comment: No: D o not add to previous draw Performed By: #### 4 1000, 71578 #### [facility] [address] CPKon 06-29-2020 CK [Catalytic activity/Vol] 45 U/L Normal 30-223 [facility] Comment on above: Order Comment: Unkno wn Performed By: #### 9 9909, 37327, 64774, 09407 #### [address] BRAIN WO CONTRASTon 06-29 CT BRAIN WO CONTRAST [facility] Department of Radiology [address] [place] [address] Patient Name: CHIKI JUAREZ : 1945 Sex: M Age: Race: White Pt. Location: [id number] Patient Status: I Ordered Date: 06/29/2020 9:20:00 [...] region. Electronically signed: Aleta Armas. Transcribed by: [email or web address], User Resident: Electronically Signed by: ALETA ARMAS @ 06/29/2020 07:16 PM Normal [facility] Comment on above: Order Comment: No: D o not add to previous draw D DIMER TESTon 06-29-2020 D-DIMER TEST 1.44 mcg/mL FEU High 0.27-0.49 [facility] Comment on above: Order Comment: No: D o not add to previous draw Result Comment: D-Di fide values of less than 0.50 ug/ml (FEU) are considered to be a negative predictor of thrombosis. However, the D-Dimer result should be used in conjunction with pretest probability and should not be used alone to diagnose a thrombotic event. Performed By: #### 4 1000, 55353, 88736 #### [facility] [address] [facility]. [address] FERRITINon 06-29-2020 Ferritin [Mass/Vol] 271 ng/mL Normal 24-336 [facility] Comment on above: Order Comment: Unkno wn Performed By: #### 9 9909, 79687, 49678, 11299 #### [facility] [address] [facility] LDH BLOODon 06-29-2020 LDH 148 Units/L Normal 140-271 [facility] Comment on above: Order Comment: Unkno wn Performed By: #### 9 9909, 36349, 97537, 81691 #### [facility] [address] [facility]. [address] LIPID PROFILEon 06-29-2020 Cholesterol [Mass/Vol] 176 mg/dL Normal 120-200 [facility] Comment on above: Order Comment: No: D o not add to previous draw Result Comment: CHOL ESTEROL REFERENCE RANGE: 20 YEARS AND OLDER CARDIOVASCULAR RISK Less than 200 mg/dl Low Risk 200 to 239 mg/dl Borderline Risk 240 mg/dl and greater High Risk Performed By: #### 4 1000, , 74662 #### [facility] [address] [place] [address], [place] Cholesterol in HDL [Mass/Vol] 39 mg/dL Normal 23-92 [facility] Comment on above: Order Comment: No: D o not add to previous draw Result Comment: Slig ht variation in normal range could be due to gender and/or age. HDL CHOLESTEROL REFERENCE RANGE: 20 years and older Cardiovascular Risk > or =60 mg/dL Desirable 40 TO 59 mg/dL Low Risk <40 mg/dL High Risk Performed By: #### 4 1000, , 09617 #### [facility] [address] [place] [address], [place] Cholesterol in LDL [Mass/Vol] 100 mg/dL Normal 0-130 [facility] Comment on above: Order Comment: No: D o not add to previous draw Result Comment: LDL IS A CALCULATION LDL IS ONLY VALID IF THE TRIG IS LESS THAN 400. Performed By: #### 4 1000, , 28274 #### [facility] [address] [facility] [place] [address], [place] Cholesterol.total/Ch olesterol in HDL [Mass ratio] 4.5 {ratio} Normal 0.0-4.5 [facility] Comment on above: Order Comment: No: D o not add to previous draw Performed By: #### 4 1000, , 39078 #### [facility] [address] [place] [address], [place] NON-HDL CHOLESTEROL 137 mg/dL Normal [facility] Comment on above: Order Comment: No: D o not add to previous draw Performed By: #### 4 1000, , 10646 #### [facility] [address] [place] [address], [place] Triglyceride [Mass/Vol] 187 mg/dL High 40-149 [facility] Comment on above: Order Comment: No: D o not add to previous draw Result Comment: TRIG LYCERIDE REFERENCE RANGE: 20 YEARS AND OLDER CARDIOVASCULAR RISK LESS THAN 150 mg/dl LOW RISK 150 TO 199 mg/dl BORDERLINE RISK 200 mg/dl AND GREATER HIGH RISK Performed By: #### 4 1000, 18061, 89444 #### [facility] [address] [place] [address], [facility] [[email or web address]] VLDL CHOL 37 mg/dL Normal 0-40 [facility] Comment on above: Order Comment: No: D o not add to previous draw Performed By: #### 4 1000, 01265, 44949 #### [facility] [address] [place] [address], [facility] [[email or web address]] LIVER BATTERYon 06-29-2020 Albumin [Mass/Vol] 3.4 g/dL Low 3.5-5.7 [facility] Comment on above: Order Comment: Unkno wn Performed By: #### 9 9909, 14951, 69028, 16251 #### [facility] [address] [place] [address], [place] ALKALINE PHOSPH 60 IU/L Normal 34-104 [facility] Comment on above: Order Comment: Unkno wn Performed By: #### 9 9909, 24686, 54969, 50788 #### [facility] [address] [place] [address], [place] ALT [Catalytic activity/Vol] 8 U/L Normal 7-52 [facility] Comment on above: Order Comment: Unkno wn Performed By: #### 9 9909, 92857, 07748, 82740 #### [facility] [address] [place] [address], [place] AST [Catalytic activity/Vol] 11 U/L Low 13-39 [facility] Comment on above: Order Comment: Unkno wn Performed By: #### 9 9909, 12527, 65881, 26585 #### [facility] [address] [place] [address], [place] Bilirubin [Mass/Vol] 0.5 mg/dL Normal 0.3-1.0 [facility] Comment on above: Order Comment: Unkno wn Performed By: #### 9 9909, 10809, 00054, 75844 #### [facility] [address] [place] [address], [place] Bilirubin.direct [Mass/Vol] 0.1 mg/dL Normal 0.0-0.2 [facility] Comment on above: Order Comment: Unkno wn Performed By: #### 9 9909, 68691, 09408, 98743 #### [facility] [address] [place] [address], [place] Protein [Mass/Vol] 5.8 g/dL Low 6.0-8.3 [facility] Comment on above: Order Comment: Unkno wn Performed By: #### 9 9909, 53367, 71692, 08855 #### [facility] [address] [place] [address], [place] POC GLUCOSE LABon 06-29-2020 Glucose [Mass/Vol] 112 mg/dL High 70-100 [facility] Comment on above: Performed By: #### 4 1000, 64066 #### [facility] [address] [place] [address], [place] Glucose [Mass/Vol] 105 mg/dL High 70-100 [facility] Comment on above: Performed By: #### 4 1000, 04287 #### [facility] [address] [place] [address], [place] Glucose [Mass/Vol] 94 mg/dL Normal 70-100 [facility] Comment on above: Performed By: #### 4 1000, 19579, 46019 #### [facility] [address] [place] [address], [place] Glucose [Mass/Vol] 121 mg/dL High 70-100 [facility] Comment on above: Performed By: #### 4 1000, 57180 #### [address] PORTABLE CHEST 1 VIEWon 06-17 PORTABLE CHEST 1 VIEW [facility] Department of Radiology 30 [place] [id number] Patient Name: CHIKI JUAREZ : 1945 Sex: M Age: Race: White Pt. Location: [id number] Patient Status: I Ordered Date: 06/29/2020 5:45:00 [...] placement. Electronically signed: Aleta Armas. Transcribed by: [email or web address], User Resident: Electronically Signed by: ALETA ARMAS @ 06/29/2020 08:15 PM Normal [facility] Comment on above: Order Comment: No: D o not add to previous draw BASIC METABOLIC PANELon 11 Calcium [Mass/Vol] 8.8 mg/dL Normal 8.6-10.3 [facility] Comment on above: Order Comment: No: D o not add to previous draw Performed By: #### 4 1000, 89240, 79530 #### [facility] [address] [place] [address], [place] Chloride [Moles/Vol] 102 mmol/L Normal 98-107 [facility] Comment on above: Order Comment: No: D o not add to previous draw Performed By: #### 4 1000, 68478, 16120 #### [facility] [address] [place] [address], [place] CO2 [Moles/Vol] 24 mmol/L Normal 21-31 [facility] Comment on above: Order Comment: No: D o not add to previous draw Performed By: #### 4 1000, 43236, 71076 #### [facility] [address] [place] [address], [place] Creatinine [Mass/Vol] 1.31 mg/dL High 0.70-1.30 [facility] Comment on above: Order Comment: No: D o not add to previous draw Performed By: #### 4 1000, 86045, 97222 #### [facility] [address] [place] [address], [place] GFR/1.73 sq M predicted among blacks MDRD (S/P/Bld) [Vol rate/Area] mL/min/{1.73_m2} Normal >60 [facility] Comment on above: Order Comment: No: D o not add to previous draw Result Comment: Calc ulation may not be valid for patients over 70 years Performed By: #### 4 1000, 92251, 29583 #### [facility] [address] [place] [address], [place] GFR/1.73 sq M predicted among non-blacks MDRD (S/P/Bld) [Vol rate/Area] 54 ml/min/1.73sq m Abnormal >60 [facility] Comment on above: Order Comment: No: D o not add to previous draw Result Comment: Calc ulation may not be valid for patients over 70 years Performed By: #### 4 1000, 44237, 12337 #### [facility] [address] [place] [address], [place] Glucose [Mass/Vol] 96 mg/dL Normal 70-100 [facility] Comment on above: Order Comment: No: D o not add to previous draw Performed By: #### 4 1000, 55855, 20242 #### [facility] [address] [place] [address], [place] Potassium [Moles/Vol] 4.3 mmol/L Normal 3.5-5.1 [facility] Comment on above: Order Comment: No: D o not add to previous draw Performed By: #### 4 1000, 97548, 65266 #### [facility] [address] [place] [address], [place] Sodium [Moles/Vol] 133 mmol/L Low 136-145 [facility] Comment on above: Order Comment: No: D o not add to previous draw Performed By: #### 4 1000, 64178, 06070 #### [facility] [address] [place] [address], [place] Urea nitrogen [Mass/Vol] 26 mg/dL High 7-25 [facility] Comment on above: Order Comment: No: D o not add to previous draw Performed By: #### 4 1000, 75220, 75852 #### [facility] [address] [place] [address], [place] CBC COMPLETE BLOOD COUNTon 08-28-2019 Erythrocyte distribution width (RBC) [Ratio] 14.4 % Normal 11.5-15.0 [facility] Comment on above: Order Comment: No: D o not add to previous draw Performed By: #### 4 1000, , 31042 #### [facility] [address] [place] [address], [facility] [[email or web address]] Hematocrit (Bld) [Volume fraction] 35.2 % Low 39.0-50.0 [facility] Comment on above: Order Comment: No: D o not add to previous draw Performed By: #### 4 1000, , 84309 #### [facility] [address] [place] [id number], [facility] [[email or web address]] Hemoglobin (Bld) [Mass/Vol] 11.8 g/dL Low 13.0-17.0 [facility] Comment on above: Order Comment: No: D o not add to previous draw Performed By: #### 4 1000, , #### [facility] [address] [place] [id number], [facility] [[email or web address]] MCH (RBC) [Entitic mass] 35.5 pg High 27.0-33.0 [facility] Comment on above: Order Comment: No: D o not add to previous draw Performed By: #### 4 1000, , #### [facility] [address] [place] [address], [facility] [[email or web address]] MCHC (RBC) [Mass/Vol] 33.5 g/dL Normal 32.0-35.0 [facility] Comment on above: Order Comment: No: D o not add to previous draw Performed By: #### 4 1000, , 93523 #### [facility] [address] [place] [id number], [facility] [[email or web address]] MCV (RBC) [Entitic vol] 106.0 fL High 82.0-98.0 [facility] Comment on above: Order Comment: No: D o not add to previous draw Performed By: #### 4 1000, , 61701 #### [facility] [address] [place] [id number], [facility] [[email or web address]] Nucleated RBC/100 WBC (Bld) [Ratio] 0 % Normal 0-0 [facility] Comment on above: Order Comment: No: D o not add to previous draw Performed By: #### 4 1000, 83865, 75266 #### [facility] [address] [facility] [place] [address], [facility] [[email or web address]] PLAT CNT 158 10*3/uL Normal 150-400 [facility] Comment on above: Order Comment: No: D o not add to previous draw Performed By: #### 4 1000, 30990, 59633 #### [facility] [address] [facility] [place] [address], [facility] [[email or web address]] RBC (Bld) [#/Vol] 3.32 10*6/uL Low 4.20-5.70 [facility] Comment on above: Order Comment: No: D o not add to previous draw Performed By: #### 4 1000, 43481, 83494 #### [facility] [address] [facility] [place] [address], [facility] [[email or web address]] WBC (Bld) [#/Vol] 7.25 10*3/uL Normal 4.00-10.60 [facility] Comment on above: Order Comment: No: D o not add to previous draw Performed By: #### 4 1000, , 76348 #### [facility] [address] Cardiovascular Lab Reporton 06-28-2020 Cardiovascular Lab Report [facility] Patient Name: Chiki [facility] MR #: [id number] Physician: Connor Carrera MD Department of Service Date: 06/28/2020 Medicine Birthdate: 1945 Division of Room #: 3CD 764503 Cardiology Adult Cardiovascular Services [facility] [address] [place] [address] Cardiovascular Laboratory Report DUAL CHAMBER PACEMAKER IMPLANT PROCEDURE NOTE DATE OF PROCEDURE: 06/28/2020 PERFORMING PHYSICIAN: Dr. Connor Carrera CONSENT: Patient LOCATION: EP Lab PROCEDURE PERFORMED: 1. Implantation of pacemaker ([employer]) 2. Ultrasound guided venous access INDICATIONS: [...] using modified seldinger technique using a 5 Thai micro-puncture needle on two occasions and 0.24 [...] was made enough for the device. 6 Thai Safesheaths were placed over the wire. An active fixation [employer] pacing lead was then delivered through the 6Fsheath to the right ventricle. After confirmation of lead position on orthogonal views (PARK and MOZAMBICAN) to confirm septal position, the screw was activated, and the lead was placed in the right ventricular mid cavity towards the septum. After confirmation of good sensing parameters, injury pattern and pacing thresholds, 10V pacing was done and no diaphragmatic stimulation was noted. It was then secured in the pocket using three 1-0 Silk sutures. Then an active fixation [employer] lead was delivered through the 6Fsheath to the right atrial appendage. After confirmation of lead position on orthogonal views (PARK and MOZAMBICAN), the screw was activated. After confirmation of [...] immediate procedural complications were noted. Device info: The Micro Accolade MRI EL Model# L331 Serial# [id number] RA lead: Model# INGEVITY [id number] (45cms) Serial# [id number] Sensin.7mV Threshold: 0.9V@0.4ms Impedance: 666Ohms RV lead: Model# INGEVITY [id number](52cms) Serial# [id number] Sensin.1mV Threshold: 0.4V@0.4ms Impedance: 746Ohms POST PROCEDURE [...] Carrera MD Date Trans: 06/28/2020 03:33 P/alondra [id number] cc: Will Sherwood M.D. [address] [place] [phone] Normal [facility] MAGNESIUM BLOODon 06-28-2020 Magnesium [Mass/Vol] 2.1 mg/dL Normal 1.9-2.7 [facility] Comment on above: Order Comment: No: D o not add to previous draw Performed By: #### 4 1000, 62245, 67662 #### [facility] [address] [place] [address], [place] PHOSPHORUS BLOODon 0 Phosphate [Mass/Vol] 3.7 mg/dL Normal 2.5-5.0 [facility] Comment on above: Order Comment: No: D o not add to previous draw Performed By: #### 4 1000, 36078, 72687 #### [facility] [address] [place] [address], [place] POC GLUCOSE LABon 06-28-2020 Glucose [Mass/Vol] 93 mg/dL Normal 70-100 [facility] Comment on above: Performed By: #### 4 1000, 73841 #### [facility] [address] [place] [address], [place] Glucose [Mass/Vol] 90 mg/dL Normal 70-100 [facility] Comment on above: Performed By: #### 4 1000, 03302 #### [facility] [address] [place] [address], [place] Glucose [Mass/Vol] 97 mg/dL Normal 70-100 [facility] Comment on above: Performed By: #### 4 1000, 59206 #### [facility] [address] [place] [address], [place] Glucose [Mass/Vol] 99 mg/dL Normal 70-100 [facility] Comment on above: Performed By: #### 4 1000, 61959 #### [facility] [address] [place] [address], [place] APTTon 06-27-2020 aPTT Coag (Bld) [Time] 34.8 s Normal 25.0-35.0 [facility] Comment on above: Order Comment: [...] THIS PURPOSE. Performed By: #### 4 1000, 74252 #### [facility] [address] BASIC METABOLIC PANELon 11-1 Calcium [Mass/Vol] 9.1 mg/dL Normal 8.6-10.3 [facility] Comment on above: Order Comment: No: D o not add to previous draw Performed By: #### 4 1000, 60596, 04611 #### [facility] [address] [place] [address], [facility] [[email or web address]] Chloride [Moles/Vol] 104 mmol/L Normal 98-107 [facility] Comment on above: Order Comment: No: D o not add to previous draw Performed By: #### 4 1000, 73570, 23119 #### [facility] [address] [place] [address], [facility] [[email or web address]] CO2 [Moles/Vol] 23 mmol/L Normal 21-31 [facility] Comment on above: Order Comment: No: D o not add to previous draw Performed By: #### 4 1000, 08215, 00540 #### [facility] [address] [place] [address], [facility] [[email or web address]] Creatinine [Mass/Vol] 1.21 mg/dL Normal 0.70-1.30 [facility] Comment on above: Order Comment: No: D o not add to previous draw Performed By: #### 4 1000, 13469, 87588 #### [facility] [address] [place] [address], [facility] [[email or web address]] GFR/1.73 sq M predicted among blacks MDRD (S/P/Bld) [Vol rate/Area] mL/min/{1.73_m2} Normal >60 [facility] Comment on above: Order Comment: No: D o not add to previous draw Result Comment: Calc ulation may not be valid for patients over 70 years Performed By: #### 4 1000, , 79182 #### [facility] [address] [place] [address], [place] GFR/1.73 sq M predicted among non-blacks MDRD (S/P/Bld) [Vol rate/Area] 59 ml/min/1.73sq m Abnormal >60 [facility] Comment on above: Order Comment: No: D o not add to previous draw Result Comment: Calc ulation may not be valid for patients over 70 years Performed By: #### 4 1000, , 00681 #### [facility] [address] [place] [address], [place] Glucose [Mass/Vol] 132 mg/dL High 70-100 [facility] Comment on above: Order Comment: No: D o not add to previous draw Performed By: #### 4 1000, , 31703 #### [facility] [address] [place] [address], [place] Potassium [Moles/Vol] 5.2 mmol/L High 3.5-5.1 [facility] Comment on above: Order Comment: No: D o not add to previous draw Performed By: #### 4 1000, , 86485 #### [facility] [address] [place] [address], [place] Sodium [Moles/Vol] 135 mmol/L Low 136-145 [facility] Comment on above: Order Comment: No: D o not add to previous draw Performed By: #### 4 1000, , 59502 #### [facility] [address] [place] [address], [place] Urea nitrogen [Mass/Vol] 21 mg/dL Normal 7-25 [facility] Comment on above: Order Comment: No: D o not add to previous draw Performed By: #### 4 1000, , 39849 #### [facility] [address] [place] [address], [facility] [[email or web address]] C REACTIVE PROTEINon 020 CRP [Mass/Vol] 40.5 mg/L High 0.0-7.0 [facility] Comment on above: Order Comment: No: D o not add to previous draw Performed By: #### 4 1000, 98802, 09058 #### [facility] [address] [place] [address], [facility] [[email or web address]] CBC W/DIFFon 06-27-2020 ABS BASOPHILS 0.0 10*3/uL Normal 0.0-0.2 [facility] Comment on above: Order Comment: No: D o not add to previous draw Performed By: #### 4 1000, 26067 #### [facility] [address] [place] [address], [facility] [[email or web address]] ABS NEUTROPHILS 4.5 10*3/uL Normal 1.6-7.6 [facility] Comment on above: Order Comment: No: D o not add to previous draw Performed By: #### 4 1000, 48238 #### [facility] [address] [facility] [address], [facility] [[email or web address]] Basophils/100 WBC (Bld) 0.0 % Normal 0.0-1.0 [facility] Comment on above: Order Comment: No: D o not add to previous draw Performed By: #### 4 1000, 54416 #### [facility] [address] [facility] [place] [address], [facility] [[email or web address]] Eosinophils (Bld) [#/Vol] 0.0 10*3/uL Normal 0.0-0.5 [facility] Comment on above: Order Comment: No: D o not add to previous draw Performed By: #### 4 1000, 60482 #### [facility] [address] [place] [address], [facility] [[email or web address]] Eosinophils/100 WBC (Bld) 0.0 % Normal 0.0-6.0 [facility] Comment on above: Order Comment: No: D o not add to previous draw Performed By: #### 4 1000, 73243 #### [facility] [address] [place] [address], [facility] [[email or web address]] Erythrocyte distribution width (RBC) [Ratio] 14.1 % Normal 11.5-15.0 [facility] Comment on above: Order Comment: No: D o not add to previous draw Performed By: #### 4 1000, 78486 #### [facility] [address] [place] [address], [facility] [[email or web address]] GIANT PLATELETS Present Normal [facility] Comment on above: Order Comment: No: D o not add to previous draw Performed By: #### 4 1000, 00813 #### [facility] [address] [place] [address], [facility] [[email or web address]] Hematocrit (Bld) [Volume fraction] 36.0 % Low 39.0-50.0 [facility] Comment on above: Order Comment: No: D o not add to previous draw Performed By: #### 4 1000, 94188 #### [facility] [address] [place] [address], [facility] [[email or web address]] Hemoglobin (Bld) [Mass/Vol] 11.8 g/dL Low 13.0-17.0 [facility] Comment on above: Order Comment: No: D o not add to previous draw Performed By: #### 4 1000, 66515 #### [facility] [address] [address], [facility] [[email or web address]] Lymphocytes (Bld) [#/Vol] 0.5 10*3/uL Low 1.2-4.0 [facility] Comment on above: Order Comment: No: D o not add to previous draw Performed By: #### 4 1000, 44282 #### [facility] [address] [place] [id number], [facility] [[email or web address]] Lymphocytes/100 WBC (Bld) 8.2 % Low 20.0-45.0 [facility] Comment on above: Order Comment: No: D o not add to previous draw Performed By: #### 4 1000, 98559 #### [facility] [address] [place] [address], [facility] [[email or web address]] MCH (RBC) [Entitic mass] 35.2 pg High 27.0-33.0 [facility] Comment on above: Order Comment: No: D o not add to previous draw Performed By: #### 4 1000, 44432 #### [facility] [address] [place] [address], [facility] [[email or web address]] MCHC (RBC) [Mass/Vol] 32.8 g/dL Normal 32.0-35.0 [facility] Comment on above: Order Comment: No: D o not add to previous draw Performed By: #### 4 1000, 72945 #### [facility] [address] [place] [address], [facility] [[email or web address]] MCV (RBC) [Entitic vol] 107.5 fL High 82.0-98.0 [facility] Comment on above: Order Comment: No: D o not add to previous draw Performed By: #### 4 1000, 51282 #### [facility] [address] [facility] [place] [address], [facility] [[email or web address]] METAMYELO 3.7 % High 0.0-0.0 [facility] Comment on above: Order Comment: No: D o not add to previous draw Performed By: #### 4 1000, 05232 #### [facility] [address] [facility] [place] [address], [facility] [[email or web address]] Monocytes (Bld) [#/Vol] 0.5 10*3/uL Normal 0.1-1.0 [facility] Comment on above: Order Comment: No: D o not add to previous draw Performed By: #### 4 1000, 02321 #### [facility] [address] [place] [address], [facility] [[email or web address]] MONOS 9.2 % Normal 5.0-12.0 [facility] Comment on above: Order Comment: No: D o not add to previous draw Performed By: #### 4 1000, 14679 #### [facility] [address] [place] [address], [facility] [[email or web address]] MYELOS 3.7 % High 0.0-0.0 [facility] Comment on above: Order Comment: No: D o not add to previous draw Performed By: #### 4 1000, 15348 #### [facility] [address] [place] [address], [place] Neutrophils/100 WBC (Bld) 75.2 % High 40.0-72.0 [facility] Comment on above: Order Comment: No: D o not add to previous draw Performed By: #### 4 1000, 52127 #### [facility] [address] [place] [address], [place] NRBC SCAN Present Normal [facility] Comment on above: Order Comment: No: D o not add to previous draw Performed By: #### 4 1000, 88590 #### [facility] [address] [place] [address], [place] Nucleated RBC/100 WBC (Bld) [Ratio] 0 % Normal 0-0 [facility] Comment on above: Order Comment: No: D o not add to previous draw Performed By: #### 4 1000, 50406 #### [facility] [address] [place] [address], [place] PLAT CNT 153 10*3/uL Normal 150-400 [facility] Comment on above: Order Comment: No: D o not add to previous draw Performed By: #### 4 1000, 16315 #### [facility] [address] [place] [address], [place] RBC (Bld) [#/Vol] 3.35 10*6/uL Low 4.20-5.70 [facility] Comment on above: Order Comment: No: D o not add to previous draw Performed By: #### 4 1000, 11338 #### [facility] [address] [place] [address], [place] WBC (Bld) [#/Vol] 5.92 10*3/uL Normal 4.00-10.60 [facility] Comment on above: Order Comment: No: D o not add to previous draw Performed By: #### 4 1000, 60356 #### [facility] [address] [place] [address], [facility] [[email or web address]] CPKon 06-27-2020 CK [Catalytic activity/Vol] 90 U/L Normal 30-223 [facility] Comment on above: Order Comment: No: D o not add to previous draw Performed By: #### 4 1000, 10776, 70859 #### [facility] [address] [place] [address], [facility] [[email or web address]] CTA HEADon 06-27-2020 CTA HEAD [facility] Department of Radiology [address] [place] [id number] Patient Name: CHIKI JUAREZ : 1945 Sex: M Age: Race: White Pt. Location: [id number] Patient Status: I Ordered Date: 06/27/2020 9:05:00 [...] achievable Electronically signed: Ashu García. Transcribed by: [email or web address], User Resident: Electronically Signed by: ASHU GARCÍA @ 06/27/2020 01:12 PM Normal [facility] Comment on above: Order Comment: No: D o not add to previous draw CTA NECKon 06-27-2020 CTA NECK [facility] Department of Radiology [address] [place] [phone] Patient Name: CHIKI JUAREZ : 1945 Sex: M Age: Race: White Pt. Location: [id number] Patient Status: I Ordered Date: 06/27/2020 9:05:00 [...] viewed on a separate workstation. The [place] Symptomatic Carotid Endarterectomy Trial (NASCET) method for [...] achievable Electronically signed: Ashu García. Transcribed by: [email or web address], User Resident: Electronically Signed by: ASHU GARCÍA @ 06/27/2020 01:08 PM Normal [facility] D DIMER TESTon 06-27-2020 D-DIMER TEST 0.39 mcg/mL FEU Normal 0.27-0.49 [facility] Comment on above: Order Comment: No: D o not add to previous draw Result Comment: D-Di fide values of less than 0.50 ug/ml (FEU) are considered to be a negative predictor of thrombosis. However, the D-Dimer result should be used in conjunction with pretest probability and should not be used alone to diagnose a thrombotic event. Performed By: #### 4 1000, 70556 #### [facility] [address] [place] [address], [facility] [[email or web address]] FERRITINon 06-27-2020 Ferritin [Mass/Vol] 250 ng/mL Normal 24-336 [facility] Comment on above: Order Comment: No: D o not add to previous draw Performed By: #### 4 1000, 74883, 55957 #### [facility] [address] HEMOGLOBIN A1Con 06-27-2020 HbA1c (Bld) [Mass fraction] 134 mmol/L Normal [facility] Comment on above: Order Comment: No: D o not add to previous draw Performed By: #### 4 1000, 71744, 79792 #### [facility] [address] [place] [address], [facility] [[email or web address]] HbA1c (Bld) [Mass fraction] 6.3 % High 4.0-6.0 [facility] Comment on above: Order Comment: No: D o not add to previous draw Performed By: #### 4 1000, 80987, 09427 #### [facility] [address] [place] [address], [facility] [[email or web address]] LDH BLOODon 06-27-2020 LDH 213 Units/L Normal 140-271 [facility] [facility] Comment on above: Order Comment: No: D o not add to previous draw Performed By: #### 4 1000, , [id number] #### [facility] [address] [place] [address], [facility] [[email or web address]] LIVER BATTERYon 06-27-2020 Albumin [Mass/Vol] 3.5 g/dL Normal 3.5-5.7 [facility] Comment on above: Order Comment: No: D o not add to previous draw Performed By: #### 4 1000, , [id number] #### [facility] [address] [place] [address], [place] ALKALINE PHOSPH 62 IU/L Normal 34-104 [facility] Comment on above: Order Comment: No: D o not add to previous draw Performed By: #### 4 1000, , [id number] #### [facility] [address] [place] [address], [place] ALT [Catalytic activity/Vol] 11 U/L Normal 7-52 [facility] Comment on above: Order Comment: No: D o not add to previous draw Performed By: #### 4 1000, , [id number] #### [facility] [address] [place] [address], [place] AST [Catalytic activity/Vol] 10 U/L Low 13-39 [facility] Comment on above: Order Comment: No: D o not add to previous draw Performed By: #### 4 1000, , [id number] #### [facility] [address] [place] [address], [place] Bilirubin [Mass/Vol] 0.5 mg/dL Normal 0.3-1.0 [facility] Comment on above: Order Comment: No: D o not add to previous draw Performed By: #### 4 1000, , [id number] #### [facility] [address] [place] [address], [place] Bilirubin.direct [Mass/Vol] 0.2 mg/dL Normal 0.0-0.2 [facility] Comment on above: Order Comment: No: D o not add to previous draw Performed By: #### 4 1000, , [id number] #### [facility] [address] [place] [address], [place] Protein [Mass/Vol] 6.0 g/dL Normal 6.0-8.3 [facility] Comment on above: Order Comment: No: D o not add to previous draw Performed By: #### 4 1000, 51346, [id number] #### [facility] [address] [place] [address], [facility] [[email or web address]] MAGNESIUM BLOODon 06-27-2020 Magnesium [Mass/Vol] 2.3 mg/dL Normal 1.9-2.7 [facility] Comment on above: Order Comment: No: D o not add to previous draw Performed By: #### 4 1000, 40597, 81761 #### [facility] [address] [place] [address], [facility] [[email or web address]] POC GLUCOSE LABon 06-27-2020 Glucose [Mass/Vol] 103 mg/dL High 70-100 [facility] Comment on above: Performed By: #### 4 1000, [id number] #### [facility] [address] [place] [address], [facility] [[email or web address]] Glucose [Mass/Vol] 100 mg/dL Normal 70-100 [facility] Comment on above: Performed By: #### 4 1000, [id number] #### [facility] [address] [place] [address], [facility] [[email or web address]] POTASSIUM BLOODon 06-27-2020 Potassium [Moles/Vol] 4.5 mmol/L Normal 3.5-5.1 [facility] Comment on above: Order Comment: No: D o not add to previous draw Performed By: #### 4 1406 #### [facility] [address] [place] [address], [facility] [[email or web address]] PROTHROMBIN TIMEon 0 INR Coag (PPP) [Relative time] 1.05 {INR} Normal 0.91-1.16 [facility] Comment on above: Order Comment: [...] CHEST 1995;108:[id number]. Performed By: #### 4 1000, [id number] #### [facility] [address] PT Coag (PPP) [Time] 13.7 s Normal 12.3-14.8 [facility] Comment on above: Order Comment: No: D o not add to previous draw Result Comment: ALL RESULTS MUST BE INTERPRETED WITH RESPECT TO BLOOD DRAWING ARTIFACT OR DILUTION ERROR OF ANTICOAGULANT AT THE TIME OF SAMPLING. Performed By: #### 4 1000, [id number] #### [facility] [address] TSH3 WITH REFLEX FT4on 06-27 TSH 3RD GENERATION 0.86 uIU/mL Normal 0.34-5.60 [facility] Comment on above: Performed By: #### 4 1000, 83323, 32216 #### [facility] [address] [facility]. [address] VITAMIN B12on 06-27-2020 Cobalamin (Vitamin B12) [Mass/Vol] 3006 pg/mL High 180-914 [facility] Comment on above: Result Comment: REFE RENCE RANGES: 180-914 pg/mL Normal 145-179 pg/mL Indeterminate <145 pg/mL Deficient Performed By: #### 4 1000, 37299, 96315 #### [facility] [address] [facility] [place] [address], [facility] [[email or web address]] PHOSPHORUS BLOODon 0 Phosphate [Mass/Vol] 3.2 mg/dL Normal 2.5-5.0 [facility] Comment on above: Order Comment: No: D o not add to previous draw Performed By: #### 4 1000, 87520 #### [facility] [address] [facility] [place] [address], [facility] [[email or web address]] TROPONIN-Ion 06-26-2020 Troponin I.cardiac [Mass/Vol] 0.01 ng/mL Normal 0.00-0.04 [facility] Comment on above: Order Comment: No: D o not add to previous draw Result Comment: REFE RENCE RANGES: 0.00 - 0.04 ng/ml NORMAL 0.05 - 0.50 ng/ml INDETERMINATE > 0.50 ng/ml CONSISTENT WITH AN M.I. Performed By: #### 4 1000, 84055 #### [facility] [address] Vital Signs Date Time Vital Sign Value Performing Clinician Facility 11-21-2024 15:05-0400 Body mass index (BMI) [Ratio] 32.52 kg/m2 Tyler Draper MD Work Phone: [facility] 11-21-2024 15:05-0400 Body temperature 97.7 [degF] Tyler Draper MD Work Phone: [facility] 11-21-2024 15:05-0400 Body weight 97 kg Tyler Draper MD Work Phone: [facility] 11-21-2024 15:05-0400 Diastolic blood pressure 65 mm[Hg] Tyler Draper MD Work Phone: [facility] 11-21-2024 15:05-0400 Heart rate 83 /min Tyler Draper MD Work Phone: [facility] 11-21-2024 15:05-0400 Respiratory rate 24 /min Tyler Draper MD Work Phone: [facility] 11-21-2024 15:05-0400 SaO2% (BldA) [Mass fraction] 90 % Tyler Draper MD Work Phone: [facility] 11-21-2024 15:05-0400 Systolic blood pressure 122 mm[Hg] Tyler Draper MD Work Phone: [facility] 06-20-2024 08:42-0500 Body height 162.6 cm Connor Biedenbach DO Work Phone: [facility] 06-20-2024 08:42-0500 Body mass index (BMI) [Ratio] 37.76 kg/m2 Connor Biedenbach DO Work Phone: [facility] 06-20-2024 08:42-0500 Body weight 99.79 kg Connor Biedenbach DO Work Phone: [facility] 06-09-2024 09:43-0400 Body height 162.6 cm Connor Biedenbach DO Work Phone: [facility] 06-09-2024 09:43-0400 Body mass index (BMI) [Ratio] 37.76 kg/m2 Connor Biedenbach DO Work Phone: [facility] 06-09-2024 09:43-0400 Body weight 99.79 kg Connor Biedenbach DO Work Phone: [facility] 06-06-2024 13:36-0400 Body mass index (BMI) [Ratio] 33.83 kg/m2 Tyler Draper MD Work Phone: [facility] 06-06-2024 13:36-0400 Body temperature 97 [degF] Tyler Draper MD Work Phone: [facility] 06-06-2024 13:36-0400 Body weight 100.9 kg Tyler Draper MD Work Phone: [facility] 06-06-2024 13:36-0400 Diastolic blood pressure 59 mm[Hg] Tyler Draper MD Work Phone: [facility] 06-06-2024 13:36-0400 Heart rate 74 /min Tyler Draper MD Work Phone: [facility] 06-06-2024 13:36-0400 Respiratory rate 18 /min Tyler Draper MD Work Phone: [facility] 06-06-2024 13:36-0400 SaO2% (BldA) [Mass fraction] 90 % Tyler Draper MD Work Phone: [facility] 06-06-2024 13:36-0400 Systolic blood pressure 109 mm[Hg] Tyler Draper MD Work Phone: [facility] 06-01-2024 16:00-0400 Diastolic blood pressure 64 mm[Hg] MD Pito Patterson Work Phone: [facility] 06-01-2024 16:00-0400 Heart rate 75 /min MD Pito Patterson Work Phone: [facility] 06-01-2024 16:00-0400 Inhaled oxygen concentration 4 % MD Pito Patterson Work Phone: [facility] 06-01-2024 16:00-0400 Respiratory rate 20 /min MD Pito Patterson Work Phone: [facility] 06-01-2024 16:00-0400 SaO2% (BldA) [Mass fraction] 99 % MD Pito Patterson Work Phone: [facility] 06-01-2024 16:00-0400 Systolic blood pressure 121 mm[Hg] MD Pito Patterson Work Phone: [facility] 06-01-2024 13:16-0400 Inhaled oxygen flow rate 4 L/min MD Pito Patterson Work Phone: [facility] 06-01-2024 13:02-0400 Body height 162.56 cm MD Pito Patterson Work Phone: [facility] 06-01-2024 13:02-0400 Body temperature 97.5 [degF] MD Pito Patterson Work Phone: [facility] 06-01-2024 13:02-0400 Body weight 98.88 kg MD Pito Patterson Work Phone: [facility] 05-31-2024 14:31-0400 Body height 162.6 cm Connor Crawley DO Work Phone: [facility] 05-31-2024 14:31-0400 Body mass index (BMI) [Ratio] 37.76 kg/m2 Connor Bourgeoisencherri DO Work Phone: [facility] 05-31-2024 14:31-0400 Body weight 99.79 kg Connor Crawley DO Work Phone: [facility] 04-22-2024 09:41-0400 Blood Pressure Location Oni MCKEON [facility] 04-22-2024 09:41-0400 Body temperature 98.6 [degF] Oni MCKEON [facility] 04-22-2024 09:41-0400 Diastolic blood pressure 52 mm[Hg] Oni MCKEON [facility] 04-22-2024 09:41-0400 Heart rate 59 /min Oni MCKEON [facility] 04-22-2024 09:41-0400 Respiratory rate 16 /min Oni MCKEON [facility] 04-22-2024 09:41-0400 Systolic blood pressure 102 mm[Hg] Oni MCKEON [facility] 04-19-2024 14:18-0400 Body height 172.7 cm Tyler Draper MD Work Phone: [facility] 04-19-2024 14:18-0400 Body mass index (BMI) [Ratio] 33.16 kg/m2 Tyler Draper MD Work Phone: [facility] 04-19-2024 14:18-0400 Body temperature 96.8 [degF] Tyler Draper MD Work Phone: [facility] 04-19-2024 14:18-0400 Body weight 98.9 kg Tyler Draper MD Work Phone: [facility] 04-19-2024 14:18-0400 Diastolic blood pressure 66 mm[Hg] Tyler Draper MD Work Phone: [facility] 04-19-2024 14:18-0400 Heart rate 85 /min Tyler Draper MD Work Phone: [facility] 04-19-2024 14:18-0400 Respiratory rate 20 /min Tyler Draper MD Work Phone: [facility] 04-19-2024 14:18-0400 SaO2% (BldA) [Mass fraction] 92 % Tyler Draper MD Work Phone: [facility] 04-19-2024 14:18-0400 Systolic blood pressure 120 mm[Hg] Tyler Draper MD Work Phone: [facility] 03-09-2023 10:50-0400 Blood Pressure Location Oni MCKEON [facility] 03-09-2023 10:50-0400 Diastolic blood pressure 70 mm[Hg] Oni MCKEON [facility] 03-09-2023 10:50-0400 Heart rate 71 /min Oni MCKEON [facility] 03-09-2023 10:50-0400 Respiratory rate 16 /min Oni MCKEON [facility] 03-09-2023 10:50-0400 Systolic blood pressure 109 mm[Hg] Oni MCKEON [facility] 01-09-2022 13:00-0400 Body height 172.7 cm Hosea Herrera MD Work Phone: [facility] 01-09-2022 13:00-0400 Body temperature 97.81 [degF] Hosea Herrera MD Work Phone: [facility] 01-09-2022 13:00-0400 Body weight 100.61 kg Hosea Herrera MD Work Phone: [facility] 01-09-2022 13:00-0400 Diastolic blood pressure 68 mm[Hg] Hosea Herrera MD Work Phone: [facility] 01-09-2022 13:00-0400 Heart rate 93 /min Hosea Herrera MD Work Phone: [facility] 01-09-2022 13:00-0400 Respiratory rate 18 /min Hosea Herrera MD Work Phone: [facility] 01-09-2022 13:00-0400 SaO2% (BldA) [Mass fraction] 93 % Hosea Herrera MD Work Phone: [facility] 01-09-2022 13:00-0400 Systolic blood pressure 95 mm[Hg] Hosea Herrera MD Work Phone: [facility] 11-19-2021 10:19-0400 Blood Pressure Location Romeo Vidal Jr. [facility] 11-19-2021 10:19-0400 Diastolic blood pressure 60 mm[Hg] Romeo Vidal Jr. [facility] 11-19-2021 10:19-0400 Heart rate 80 /min Romeo Vidal Jr. [facility] 11-19-2021 10:19-0400 Respiratory rate 16 /min Romeo Vidal Jr. [facility] 11-19-2021 10:19-0400 Systolic blood pressure 113 mm[Hg] Romeo Vidal Jr. [facility] Encounters Encounter Date Encounter Type Care Provider Facility Start: 02-15-2026 ambulatory Marlys L Corwin Facility: [facility] Start: 04-24-2025 ambulatory Oni Victor ty:[facility] Start: 02-27-2025 ambulatory [facility] Start: 02-16-2025 End: 02-16-2025 Lab Drop off Marlys L Corwin [facility] Start: 02-16-2025 End: 02-16-2025 ambulatory Marlys L Corwin Facility:[facility] Start: 02-15-2025 End: 02-15-2025 ambulatory Marlys L Corwin Facility:[facility] Start: 02-14-2025 ambulatory Pito Patterson Facility :[facility] Start: 02-02-2025 End: 02-02-2025 Bamboo flowsheet Crys [facility] PA Work Phone: [facility] Start: 02-02-2025 End: 02-02-2025 Bamboo flowsheet [facility] Work Phone: [facility] Start: 02-02-2025 End: 02-02-2025 Office outpatient visit 25 minutes Crys HERNANDEZ Work Phone: [facility] Comment on above: Melanocytic nevus of trunk (Primary Dx); History of SCC (squamous cell carcinoma) of skin; Seborrheic keratosis; Actinic keratosis; Ayala angioma; Other seborrheic dermatitis Start: 02-02-2025 End: 02-02-2025 ambulatory CRYS NORTHEIM Not Available Start: 12-21-2024 ambulatory CONNOR [facility] Start: 11-24-2024 End: 11-24-2024 Follow-up encounter Tyler Draper MD Work Phone: Hematology/Oncology Comment on above: TSH results Start: 11-24-2024 End: 11-24-2024 ambulatory Pito Patterson Facility:[facility] Katerina Start: 11-21-2024 End: 11-21-2024 ambulatory [...] nodes [R59.0] Start: 10-21-2024 End: 10-21-2024 ambulatory [facility] Start: 10-17-2024 End: 10-28-2024 ambulatory Pito Patterson Facility:[id number] Start: 10-14-2024 End: 10-14-2024 Telephone encounter Tyler Draper MD Work Phone: Hematology/Oncology Comment on above: Orders Start: 08-25-2024 End: 08-25-2024 ambulatory Pito Patterson Facility:[facility] Katerina Start: 08-04-2024 End: 08-04-2024 ambulatory CRYS NORTHEIM Not Available Start: 08-04-2024 End: 08-04-2024 Office outpatient visit 15 minutes Crys Taylor PA Work Phone: [facility] Comment on above: Capillary angioma (P rimary Dx); Melanocytic nevus of trunk; Seborrheic keratosis; Actinic keratosis; History of SCC (squamous cell carcinoma) of skin; Lentigo simplex Start: 07-13-2024 End: 07-13-2024 ambulatory MARKUS CERNA Facility:[facility] Start: 06-20-2024 End: 06-20-2024 Bamboo flowsheet [...] surgery center MD Pito Patterson Work Phone: [facility] [place] Start: 06-01-2024 End: 06-01-2024 ambulatory MD Pito Patterson Work Phone: [facility] Work Phone: Start: 05-31-2024 End: 05-31-2024 [...] Start: 05-17-2024 End: 05-17-2024 ambulatory Pito Patterson Facility:[facility] Start: 05-13-2024 End: 05-13-2024 ambulatory [facility] Start: 05-03-2024 End: 05-03-2024 Bamboo flowsheet [...] [Z85.72] Start: 04-26-2024 End: 04-26-2024 ambulatory CONNOR [facility] Start: 04-22-2024 End: 04-22-2024 ambulatory Oni MCKEON Facility:[facility] Start: 04-22-2024 End: 04-22-2024 Patient encounter procedure Oni MCKEON [facility] Start: 04-19-2024 End: 04-19-2024 Patient encounter procedure Tyler Draper MD Work Phone: Hematology/Oncology Start: 04-19-2024 End: 04-19-2024 ambulatory Tyler Draper MD Work Phone: Hematology/Oncology Comment on above: 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); History of lymphoma; Lymph node enlargement; Skin lesion of face Start: 04-19-2024 End: 04-26-2024 Telephone encounter [facility] Comment on above: Future Appointment Start: 02-02-2024 Telephone encounter Valerie Wallace Hematology/Oncology Comment on above: Results Start: 01-21-2024 End: 01-21-2024 ambulatory PITO PATTERSON Facility:[facility] Start: 10-19-2023 End: 10-19-2023 Lab Drop off Pito Patterson [facility] Start: 03-31-2023 End: 03-31-2023 Patient encounter procedure Oni MCKEON [facility] Start: 03-09-2023 End: 03-09-2023 Patient encounter procedure Oni MCKEON [facility] Start: 01-26-2023 End: 01-26-2023 Lab Drop off Marlys Olivia [facility] Start: 08-05-2022 Telephone encounter Aby Hernandez RN Hematology/Oncology Comment on above: Results Start: 07-24-2022 Telephone encounter Tyler cadena MD Work Phone: [facility] Comment on above: Appointment Start: 04-22-2022 End: [...] procedure Romeo Vidal Jr. [facility] Start: 09-24-2021 End: 09-25-[address] [...] Evaluation and management of inpatient CRESCENCIO FLETCHER Facility:[facility] Procedures Date Procedure Procedure Detail Performing Clinician Start: 02-02-2025 CRYOTHERAPY SKIN LESION Crys Taylor PA Work Phone: Start: 11-15-2024 Ct thorax w/contrast material Tyler Draper MD Work Phone: Start: 11-15-2024 Blood count complete auto&auto difrntl wbc Arabella Nalini PILE DRIVING SUPERVISOR.STUDENT UNION CONSULTANT Work Phone: Start: 08-04-2024 CRYOTHERAPY SKIN LESION [...] on above: Performed By: #### P SAD ####[facility] [id number] [place], [place] [address]De. Trevor Nichols Start: 06-28-2020 INSERT PACE. DUAL [...] DTaP,Tdap,Td Vaccine (2 - Td or Tdap) [facility] Start: 11-16-2027 Diabetes Screening Diabetes Screening [facility] Start: 04-19-2027 Diabetes Screening Diabetes Screening [facility] Start: 01-20-2027 Diabetes Screening Diabetes Screening [facility] Start: 08-03-2025 End: 08-03-2025 Patient encounter procedure 08/03/2025 1:10 PM EST Office Visit [facility] [address] [place] [address] Crys Taylor PA [address] [place] [address] [facility] Start: 07-18-2025 DIABETES SCREEN DIABETES SCREEN [facility] Start: 05-29-2025 End: 05-29-2025 Follow-up encounter 05/29/2025 3:00 PM EDT Visit (SP) Office Hematology/Oncology [address] [place] [address] Ginger Bean APRN.STUDENT UNION CONSULTANT [address] [place] [address] 6 month follow up / BRM pt Hematology/Oncology Comment on above: 6 month follow up / BRM pt Start: 05-22-2025 End: 05-22-2025 Patient encounter procedure 05/22/2025 3:30 PM EDT Office Visit [facility] [address] [facility] [place] [address] [facility] Comment on above: 6 month lab Start: 02-02-2025 End: 02-02-2025 Patient encounter procedure [facility] Comment on above: Arrived Start: 01-09-2025 DIABETES SCREEN DIABETES SCREEN [facility] Start: 11-21-2024 End: 11-21-2024 Follow-up encounter 11/21/2024 3:20 PM EDT Visit (SP) Office Hematology/Oncology [address] [place] [address] Tyler Draper MD [address] [place] [address] 6 Month follow up with lab Hematology/Oncology Comment on above: 6 Month follow up with lab Start: 11-21-2024 End: 11-21-2024 Patient encounter procedure 11/21/2024 3:00 PM EDT Office Visit [facility] [address] [place] [address] 6 Month follow up with lab [facility] Comment on above: 6 Month follow up with lab Start: 11-15-2024 End: 02-14-2025 CBC W Auto Differential panel - Blood COMPLETE BLOOD COUNT AND DIFFERENTIAL Lab Routine Diffuse large B-cell lymphoma, unspecified body region (HCC) Expected: 11/15/2024 (Approximate), Expires: 02/14/2025 [facility] Comment on above: Expected: 11/15/2024 (Approximate), Expi res: 02/14/2025 Start: 11-15-2024 End: 02-14-2025 Comprehensive metabolic 2000 panel - Serum or Plasma COMPREHENSIVE METABOLIC PANEL Lab Routine Diffuse large B-cell lymphoma, unspecified body region (HCC) Expected: 11/15/2024 (Approximate), Expires: 02/14/2025 [facility] Work Phone: Comment on above: Expected: 11/15/2024 (Approximate), Expi res: 02/14/2025 Start: 11-15-2024 End: 07-10-2025 CT Chest W contrast IV CT CHEST W IVCON Radiology Routine Localized enlarged lymph nodes Expected: 11/15/2024, Expires: 07/10/2025 [facility] Work Phone: Comment on above: Expected: 11/15/2024, Expires: Start: 11-15-2024 End: 02-14-2025 MONOCLONAL PROTEIN, SERUM (BLOOD) [facility] Comment on above: Expected: 11/15/2024 (Approximate), Expi res: 02/14/2025 Start: 11-15-2024 End: 02-14-2025 PROTEIN ELECTROPHORESIS SERUM W/INTERP [facility] Comment on above: Expected: 11/15/2024 (Approximate), Expi res: 02/14/2025 Start: 11-15-2024 End: 11-15-2024 Patient encounter procedure Radiology Pet CT Comment on above: CT Chest with IVC Start: 11-09-2024 Covid-19 Vaccine (7 - Pfizer risk season) Covid-19 Vaccine (7 - Pfizer risk season) [facility] Start: 08-17-2024 Advance Directive Discussion Advance Directive Discussion [facility] Start: 08-04-2024 End: 08-04-2024 Patient encounter procedure 08/04/2024 1:00 PM EST Office Visit [facility] [address] [place] [address] Crys Taylor PA [address] [place] [address] [facility] Start: 07-07-2024 Covid-19 Vaccine ( season) Covid-19 Vaccine ( season) [facility] Start: 06-28-2024 End: 06-28-2024 Patient encounter procedure 06/28/2024 1:00 PM EST Office Visit [facility] [address] [place] [phone] Chiki Malone MD [address] [place] [address] [facility] Start: 06-20-2024 End: 06-20-2024 Patient encounter procedure 06/20/2024 8:45 AM EST Office Visit [facility] [place] [address] [place] [phone] Connor Crawley DO [address] [place] [address] Arrived [facility] [place] Comment on above: Arrived Start: 06-17-2024 End: 06-17-2024 Patient encounter procedure 06/17/2024 1:15 PM EDT Office Visit [facility] [place] [address] [place] [phone] Connor Crawley DO [address] [place] [address] [facility] [place] Start: 06-09-2024 End: 06-09-2024 Patient encounter procedure [facility] [place] Comment on above: Arrived Start: 06-06-2024 End: 06-06-2024 Follow-up encounter 06/06/2024 1:45 PM EDT Visit (SP) Office Hematology/Oncology [address] [place] [address] [place] [address] Tyler Draper MD [address] [place] [address] 6 week follow up Hematology/Oncology Comment on above: 6 week follow up Start: 06-06-2024 End: 06-06-2024 Patient encounter procedure 06/06/2024 1:30 PM EDT Office Visit [facility] [address] [place] [address] 6 week follow up 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 [facility] Comment on above: Squamous cell cancer of skin of left vibha ek Start: 05-03-2024 End: 05-03-2024 Patient encounter procedure 05/03/2024 11:00 AM EDT Office Visit [facility] [address] [place] [address] Crys Taylor PA [address] [place] [address] Arrived [facility] Comment on above: Arrived Start: 04-29-2024 End: 04-29-2024 Patient encounter procedure 04/29/2024 1:30 PM EDT Appointment Radiology [address] [place] [address] Comment on above: Pet scan Start: 04-19-2024 End: 04-19-2024 ambulatory 04/19/2024 2:30 PM EDT Visit (SP) Office Hematology/Oncology [address] [place] [address] Tyler Draper MD [address] [place] [address] 6 month lab Hematology/Oncology Comment on above: 6 month lab Start: 04-19-2024 End: 04-19-2024 Patient encounter procedure 04/19/2024 2:15 PM EDT Office Visit [facility] [address] [place] [address] [facility] Comment on above: 6 month lab Start: 04-19-2024 End: 07-19-2024 MONOCLONAL PROTEIN, SERUM (BLOOD) [facility] Comment on above: Expected: 04/19/2024, Expires: Start: 04-19-2024 End: 07-19-2024 PROT ELECT SERUM WITH CARSON AND INTERP [facility] Work Phone: Comment on above: Expected: 04/19/2024, Expires: Start: 04-17-2024 Covid-19 Vaccine ( season) Covid-19 Vaccine ( season) [facility] Start: 04-17-2024 Influenza vaccination Influenza Vaccine (#1) [facility] Start: 08-27-2023 Covid-19 Vaccine ( season) Covid-19 Vaccine ( season) [facility] Start: 08-17-2023 Advance Directive Discussion Advance Directive Discussion [facility] Start: 08-17-2023 Behavioral Health Screening Behavioral Health Screening [facility] Start: 01-09-2023 Adult depression screening assessment DEPRESSION SCREENING [facility] Start: 07-18-2022 End: 09-17-2022 CBC panel - Blood by Automated count CBC Lab Routine MGUS (monoclonal gammopathy of unknown significance) Expected: 07/18/2022 (Approximate), Expires: 09/17/2022 [facility] Work Phone: Comment on above: Expected: 07/18/2022 (Approximate), Expi res: 09/17/2022 Start: 07-18-2022 End: 09-17-2022 Comprehensive metabolic 2000 panel - Serum or Plasma COMP METABOLIC PANEL Lab Routine MGUS (monoclonal gammopathy of unknown significance) Expected: 07/18/2022 (Approximate), Expires: 09/17/2022 [facility] Work Phone: Comment on above: Expected: 07/18/2022 (Approximate), Expi res: 09/17/2022 Start: 07-18-2022 End: 09-17-2022 MONOCLONAL PROTEIN, SERUM (BLOOD) MONOCLONAL PROTEIN, SERUM (BLOOD) Lab Routine MGUS (monoclonal gammopathy of unknown significance) Expected: 07/18/2022 (Approximate), Expires: 09/17/2022 [facility] Work Phone: Comment on above: Expected: 07/18/2022 (Approximate), Expi res: 09/17/2022 Start: 07-18-2022 End: 09-17-2022 PROTEIN ELECTROPHORESIS SERUM W/INTERP PROTEIN ELECTROPHORESIS SERUM W/INTERP Lab Routine MGUS (monoclonal gammopathy of unknown significance) Expected: 07/18/2022 (Approximate), Expires: 09/17/2022 [facility] Work Phone: Comment on above: Expected: 07/18/2022 (Approximate), Expi res: 09/17/2022 Start: 05-06-2022 COVID-19 VACCINE (5 - Booster for Pfizer series) COVID-19 VACCINE (5 - Booster for Pfizer series) [facility] Start: 04-17-2022 Influenza vaccination INFLUENZA (#1) [facility] Start: 09-25-2021 COVID-19 VACCINE (4 - Booster for Pfizer series) COVID-19 VACCINE (4 - Booster for Pfizer series) [facility] Start: 08-17-2021 ADVANCE DIRECTIVE DISCUSSION ADVANCE DIRECTIVE DISCUSSION [facility] Start: 08-17-2021 DEPRESSION ASSESSMENT DEPRESSION ASSESSMENT [facility] Start: 2007 RSV Vaccine (1 - 1-dose 60+ series) RSV Vaccine (1 - 1-dose 60+ series) [facility] Start: 1997 SHINGRIX VACCINE (1 of 2) SHINGRIX VACCINE (1 of 2) [facility] Start: 1992 COLOGUARD (FIT-DNA) COLOGUARD (FIT-DNA) [facility] Start: 1992 Colonoscopy COLONOSCOPY [facility] Start: 1992 COLORECTAL CANCER SCREENING COLORECTAL CANCER SCREENING [facility] Start: [address] COLONOGRAPHY [facility] Start: 1992 FECAL OCCULT BLOOD FECAL OCCULT BLOOD [facility] Start: 1992 SIGMOIDOSCOPY SIGMOIDOSCOPY [facility] Start: 1982 LIPID SCREEN LIPID SCREEN [facility] Start: 1966 SHINGRIX VACCINE (1 of 2) SHINGRIX VACCINE (1 of 2) [facility] Start: 1966 Urine microalbumin profile DTAP,TDAP,TD (1 - Tdap) [facility] Start: 1965 Anxiety Screening Anxiety Screening [facility] Start: 1965 Depression Screening Depression Screening [facility] Start: 1965 HEPATITIS C SCREENING HEPATITIS C SCREENING [facility] Start: 1965 Hepatitis C screening Hepatitis C Screening [facility] Start: 1947 ABDOMINAL AORTIC ANEURYSM SCREENING ABDOMINAL AORTIC ANEURYSM SCREENING [facility] Start: 1945 Medicare Annual Wellness (AWV) Medicare Annual Wellness (AWV) [facility] CBC W Auto Different ial panel - Blood CBC + DIFF Lab Routine B12 deficiency Diffuse large B-cell lymphoma, unspecified body region (HCC) 01/09/2022 1:40 PM EDT [facility] Work Phone: Dermatopathology exam Dermatopat hology exam Pathology and Cytology Timed Neoplasm of unspecified behavior of bone, soft tissue, and skin Release Upon Ordering for 1 Occurrences starting 05/03/2024 [facility] [employer] Work Phone: Comment on above: Release Upon Ordering for 1 Occurrences starting 05/03/2024 End: 11-15-2024 IMMUNOFIXATION SCREEN, SERUM [facility] Comment on above: Once for 1 Occurrences starting 11/16/19 until 11/15/2024 End: 11-15-2024 IMMUNOGLOBULINS,IGG,IGA,I GM [facility] Comment on above: Once for 1 Occurrences starting 11/16/19 until 11/15/2024 End: 11-15-2024 KAPPA/ARDON,FREE,SER [facility] Comment on above: Once for 1 Occurrences starting 11/16/19 until 11/15/2024 Patient Education Know your Meds [facility] Work Phone: Patient referral [facility] Work Phone: End: 05-19-2025 PET+CT Guidance for localization of tumor of Skull base to mid-thigh-- W 18F-FDG IV NM PET/CT SKULL-THIGH SUBSEQUENT Radiology Routine History of lymphoma Lymph node enlargement 1 Occurrences starting 04/19/2024 until 05/19/2025 [facility] Comment on above: 1 Occurrences starting 04/19/2024 until 05/19/2025 PET+CT Guidance for localization of tumor of Skull base to mid-thigh-- W 18F-FDG IV NM PET/CT SKULL-THIGH SUBSEQUENT Radiology Routine History of lymphoma Lymph node enlargement 04/29/2024 3:28 PM EDT [facility] Work Phone: End: 11-15-2024 PROTEIN ELECTROPHORESIS SERUM (P) [facility] Work Phone: Comment on above: Once for 1 Occurrences starting 11/16/19 until 11/15/2024 [facility] Immunizations Immunization Date Immunization Notes Care Provider [facility] 05-12-2024 influenza, high dose seasonal, preservative-free Connor Crawley DO Work Phone: [facility] 05-12-2024 SARS-CoV-2 mRNA (tozinameran 5y-11y) vaccine Marlys Olivia [facility] Comment on above: Result Comment: COvi d 19 mRNA, LN-S pfizer trus sucrose 05-12-2024 influenza virus vaccine, unspecified formulation Connor Crawley DO Work Phone: [facility] 03-21-2024 canakinumab Oni MCKEON [facility] Comment on above: Result Comment: RSV 03-21-2024 respiratory syncytia l virus (RSV) vaccine, adjuvanted (AREXVY) Tyler Draper MD Work Phone: [facility] 03-21-2024 RSV vaccine preF3, recombinant Marlys Corwin [facility] 07-02-2023 SARS-CoV-2 mRNA (tozinameran 5y-11y) vaccine Pito Patterson [facility] Comment on above: Result Comment: covi d 19 eneida sucrose [facility] 05-11-2023 influenza, high dose seasonal, preservative-free Pito Patterson [facility] 05-11-2023 influenza virus vaccine, unspecified formulation Tyler Draper MD Work Phone: [facility] 03-11-2022 SARS-CoV-2 mRNA (bzudiwsoumd-pnxj-bfupe se) vaccine Marlys Corwin [facility] 06-25-2021 SARS-CoV-2 (COVID-19 ) mRNA BNT-162b2 vax Marlys Corwin [facility] 05-24-2021 influenza (HD-IIV4) vaccine, age 65+ yr, high dose, quadrivalent, PF (FLUZONE HIGH-DOSE) Tyler Draper MD Work Phone: [facility] 05-24-2021 influenza virus vaccine, unspecified formulation Marlys Corwin [facility] 11-13-2020 COVID-19 vaccine, ag e 12+ yr (PFIZER-BIONTECH - PURPLE TOP) Hosea Herrera MD Work Phone: [facility] 10-22-2020 COVID-19 vaccine, ag e 12+ yr (PFIZER-BIONTECH - PURPLE TOP) Hosea Herrera MD Work Phone: [facility] 07-24-2020 zoster vaccine recombinant Marlys Corwin [facility] 07-22-2020 zoster vaccine recombinant Tyler Draper MD Work Phone: [facility] 05-09-2020 influenza (HD-IIV4) vaccine, age 65+ yr, high dose, quadrivalent, PF (FLUZONE HIGH-DOSE) Tyler Draper MD Work Phone: [facility] 05-09-2020 influenza virus vaccine, unspecified formulation Marlys Corwin [facility] 05-09-2020 tetanus toxoid, redu juvencio diphtheria toxoid, and acellular pertussis vaccine, adsorbed Marlys Corwin [facility] 05-09-2020 zoster vaccine recombinant Marlys Corwin [facility] 04-16-2019 influenza virus vaccine, unspecified formulation Marlys Corwin [facility] 04-16-2019 Seasonal trivalent influenza vaccine, adjuvanted, preservative free Tyler Draper MD Work Phone: [facility] 05-25-2018 influenza nasal, unspecified formulation Tyler Draper MD Work Phone: [facility] 05-25-2018 influenza virus vaccine, unspecified formulation Marlys Corwin [facility] 05-25-2018 influenza, injectabl e, quadrivalent, preservative free Hosea Herrera MD Work Phone: [facility] 05-25-2018 pneumococcal polysaccharide vaccine, 23 valent Hosea Herrera MD Work Phone: [facility] 04-26-2018 influenza nasal, unspecified formulation Tyler Draper MD Work Phone: [facility] 04-26-2018 influenza virus vaccine, unspecified formulation Marlys Corwin [facility] 04-26-2018 influenza, high dose seasonal, preservative-free Hosea Herrera MD Work Phone: [facility] 04-26-2018 pneumococcal polysaccharide vaccine, 23 valent Hosea Herrera MD Work Phone: [facility] 08-04-2017 influenza nasal, unspecified formulation Tyler Draper MD Work Phone: [facility] 08-04-2017 influenza virus vaccine, unspecified formulation Marlys Appiahab [facility] 08-04-2017 influenza, high dose seasonal, preservative-free Hosea Herrera MD Work Phone: [facility] 08-04-2017 pneumococcal conjuga te vaccine, 13 valent Hosea Herrera MD Work Phone: [facility] influenza vaccine qs 240 mcg, Patients 65 years and older,, PF, (FLUZONE HIGHDOSE QUAD 20-21 PF) 240 mcg/0.7 mL injection Hosea Herrera MD Work Phone: [facility] Comment on above: Fluzone High-Dose Qu ad 2020-21 (PF) 240 mcg/0.7 mL IM syringe PHARMACY ADMINISTERED influenza vaccine qs 240 mcg, Patients 65 years and older,, PF, (FLUZONE HIGHDOSE QUAD 20-21 PF) 240 mcg/0.7 mL injection Tyler Draper MD Work Phone: [facility] Comment on above: Fluzone High-Dose Qu ad 2020-21 (PF) 240 mcg/0.7 mL IM syringe PHARMACY ADMINISTERED influenza vaccine qs 240 mcg, Patients 65 years and older,, PF, (FLUZONE HIGHDOSE QUAD 20-21 PF) 240 mcg/0.7 mL injection Valerie Mayes RN [facility] influenza vaccine qs 240 mcg, Patients 65 years and older,, PF, (FLUZONE HIGHDOSE QUAD 20-21 PF) 240 mcg/0.7 mL injection Tyler Draper MD Work Phone: [facility] influenza vaccine qs 240 mcg, Patients 65 years and older,, PF, (FLUZONE HIGHDOSE QUAD 20-21 PF) 240 mcg/0.7 mL injection Tyler Draper MD Work Phone: [facility] influenza vaccine qs 240 mcg, Patients 65 years and older,, PF, (FLUZONE HIGHDOSE QUAD 20-21 PF) 240 mcg/0.7 mL injection Arrival Radiology Work Phone: [facility] Payers Date Payer Category Payer Medicare (Managed Care) 1.2. [id number] 2022 Private Health Insurance [id number] 2014 Medicare AETNA MEDICARE A ETNA MEDICARE PPO [id number] 2014-Present [phone] [address] [place] [address] PPO [id number] 2012 Medicare [id number] 2012 Medicare [id number] 1959 Medicare [id number] 1959 Private Health Insurance [id number] [id number] Self-pay 1947 Unknown [id number] 2.16.840.1.700296.3.579.2. 647 1947 Unknown [id number] 2.16.840.1.352936.3.579.2. 593 1947 Unknown [id number] 2.16.840.1.903084.3.579.2. 593 1947 Unknown [id number] 2.16.840.1.868289.3.579.2. 593 1947 Unknown [id number] 2.16.840.1.615905.3.579.2. 593 1947 Unknown [id number] 2.16.840.1.535576.3.579.2. 593 1947 Unknown [id number] 2.16.840.1.352395.3.579.2. 593 1947 Unknown [id number] 2.16.840.1.932362.3.579.2. 593 1947 Unknown [id number] 2.16.840.1.624369.3.579.2. 593 1947 Unknown [id number] 2.16.840.1.580871.3.579.2. 593 1947 Unknown [id number] 2.16.840.1.820557.3.579.2. 593 1947 Unknown [id number] 2.840.1.137856.3.579.2. 593 1947 Unknown [id number] 2.16840.1.921063.3.579.2. 593 1947 Unknown [id number] 2.16.840.1.265279.3.579.2. 593 1947 Unknown [id number] 2.16840.1.494228.3.579.2. 593 1947 Unknown [id number] 2.840.1.798834.3.579.2. 593 1947 Unknown [id number] 2.16.840.1.934578.3.579.2. 593 1947 Unknown [id number] 2.16.840.1.675548.3.579.2. 593 1947 Unknown [id number] 2.16.840.1.947302.3.579.2. 593 1947 Unknown [id number] 2.16.840.1.466057.3.579.2. 593 1947 Unknown [id number] 2.16.840.1.745244.3.579.2. 593 1947 Unknown [id number] 2.16.840.1.512279.3.579.2. 1259 1947 Unknown [id number] 2.16.840.1.905929.3.579.2. 1259 1947 Unknown [id number] 2.16.840.1.396838.3.579.2. 125 1947 Unknown [id number] 2.16.840.1.869457.3.579.2. 125 1947 Unknown [id number] 2.16.840.1.982201.3.579.2. 125 1947 Unknown [id number] 2.16.840.1.677009.3.579.2. 1258 1947 Unknown [id number] 2.840.1.776726.3.579.2. 1947 Unknown [id number] 2.16.840.1.046559.3.579.2. 1947 Unknown [id number] 2.16.840.1.351944.3.579.2. 1947 Unknown [id number] 2.16840.1.079667.3.579.2. 72 1947 Unknown [id number] 2.16840.1.090881.3.579.2. 72 1947 Unknown [id number] 2.16.840.1.317116.3.579.2. 72 1947 Unknown [id number] 2.16.840.1.303373.3.579.2. 1947 Unknown [id number] 2.16.840.1.103044.3.579.2. 72 1947 Unknown [id number] 2.16840.1.737854.3.579.2. 727 1947 Unknown [id number] 2.16.840.1.697915.3.579.2. 727 1947 Unknown [id number] 2.16.840.1.479764.3.579.2. 727 1947 Unknown [id number] 2.16.840.1.982294.3.579.2. 727 1947 Unknown [id number] 2.16.840.1.601914.3.579.2. 72 Medicare Medicare Outpatient [id number] [id number] Unknown [id number] 2.16.840.1.708020.3.579.2. 593 Unknown Karl BC/BS [id number] Unknown [id number] 2.16.840.1.297635.3.579.2. 531 Social History Date Type Detail Facility Start: 11-19-2021 End: 02-15-2025 Tobacco smoking status Ex-smoker (finding) [facility] Comment on above: Patient states he sm oked cigarettes, 1 PPD from about 22 years old until about 42 years old. denies use. Former s moker. Quit 1987. Start: 07-30-2023 End: 08-04-2024 Sex Assigned At Male [facility] Start: 09-06-1968 End: 09-06-1988 History of tobacco use Current smoker [facility] Start: 09-06-2012 End: 08-04-2024 Cigarettes smoked current (pack per day) - Reported 1 [facility] Start: 09-06-2012 End: 05-03-2024 Tobacco use and exposure Smokeless tobacco non-user [facility] Start: 01-09-2022 End: 11-21-2024 Alcohol intake Current drinker of alcohol (finding) [facility] Start: 04-05-2019 History SDOH Alcohol Comment rare [facility] Start: 1945 Sex Assigned At Not on file C [facility] Start: 12-30-2021 End: 01-09-2022 Exposure to SARS-CoV-2 (event) Not sure [facility] Start: 09-06-1968 End: 09-06-1988 History of tobacco use Cigarette Smoker [facility] History of tobacco use Passive smoker [facility] Tobacco smoking status Never [facility] Comment on above: Patient states he sm oked cigarettes, 1 PPD from about 22 years old until about 42 years old. denies use. Former s moker. Quit 1987. Start: 05-03-2024 End: 02-02-2025 Alcoholic beverage intake Defer [facility] Start: 1945 Sex Assigned At Male [facility] consumption unknown [facility] Sexual Orientation [facility] Start: 11-01-2016 Sex Male (finding) [facility] NEGATED: Highlighted rowStart: NINF History of tobacco use Passive smoker [facility] Goals Date Patient Goal Desired Activity /State Functional Status Date Assessment Result Facility 04-22-2024 Functional Status N/A [facility] 03-09-2023 Functional Status N/A [facility] 02-19-2015 Are you deaf, or do you have serious difficulty hearing No 02/19/2015 11:13 AM Otilia Mejía No [facility] 02-19-2015 Are you blind, or do you have serious difficulty seeing, even when wearing glasses No 02/19/2015 11:13 AM Otilia Mejía No [facility] 02-19-2015 Do you have serious difficulty walking or climbing stairs No 02/19/2015 11:13 AM Otilia Mejía No [facility] 02-19-2015 Do you have difficul ty dressing or bathing Yes 02/19/2015 11:13 AM Otilia Mejía Yes [facility] 02-20-2014 Because of a physica l, mental, or emotional condition, do you have difficulty doing errands alone such as visiting a physician's office or shopping No 02/20/2014 11:24 AM EDT Mario Otilia No [facility] Mental Status Date Assessment Result Facility 02-19-2015 Because of a physica l, mental, or emotional condition, do you have serious difficulty concentrating, remembering, or making decisions No 02/19/2015 11:13 AM EDT Mario Otilia No [facility] Clinical Notes 11-19-2021 to 02-15-2025 MARY [...] Follow these instructions at home: ??? Take ylfi-mjx-tfoibzh and prescription medicines only as told by [...] provider. Document Revised: 08/05/2022 Document Reviewed: 08/05/2022 flipClass Patient Education ? 2023 [employer]. Screening for Type 2 Diabetes A screening test for type 2 diabetes (type 2 diabetes mellitus) is a blood test to measure your blood sugar (glucose) level. This test is done to check for early signs of diabetes, before you develop symptoms (more content not included)... [facility] 02-02-2025 History of Present illness Narrative Skin [...] limited to risks of scarring, darker or rotary saw operator pigmentary changes, recurrence, incomplete removal and infection. [...] Visit: 6 months documented in this encounter [facility] 11-24-2024 Telephone encounter Note Pt notified of BRM message below. She is agreeable to follow up with PCP, to discuss US. She denies any questions, needs or concerns at this time. Labs faxed to PCP, Dr Navarro Mayes RN [facility] 11-24-2024 Miscellaneous Notes Pt notified of BRM message below. She is agreeable to follow up with PCP, to discuss US. She denies any questions, needs or concerns at this time. Labs faxed to PCP, Dr Navarro Mayes, RN documented in this encounter [facility] 11-21-2024 Note HNO ID: [id number] Author: YOLANDA MONTAGUE MA Service: ? Author Type: Senior Mechanical Project Manager Type: Progress Notes Filed: 11/23/2024 09:37 Note Text: Pt very short of breath. Has oxygen at home. But declined using our oxygen.Yolanda Montague MA [facility] 11-21-2024 History of Present illness Narrative Pt very short of breath. Has oxygen at home. But declined using our oxygen.Yolanda Montague MA PATIENT NAME: Chiki FERNANDON: [id number] DATE: 11/21/2024 PRIMARY CARE PHYSICIAN: Dr. Pito [...] influenza A infection and was hospitalized at [facility]. Apparently his symptoms were severe enough [...] or inguinal regions. PATHOLOGY: 06/01/2024 Skin resection ([facility] A. Skin lesion from left cheek: Recent [...] active disease. 02/01/2024 Bilateral lower extremity Doppscan ([facility]) The RIGHT lower extremity was imaged, [...] Trans x 2.56 cm Sagittal. 12/31/2023 CXR ([facility]) IMPRESSION: 1. No significant interval change and no new or worsening airspace disease. No pleural effusion or pneumothorax. 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 2. Stable cardiomediastinal silhouette. 3. Left chest wall CIED with leads in the right atrium and right ventricle. 4. Unchanged compression deformity in the mid thoracic spine. 09/24/2021 Skeletal bone survey ([facility]) No lytic lesions suggestive of multiple [...] random TRUS prostate biopsies with prostate adenocarcinoma, [place] 4+3, 3 cores involved out of 9, [...] PCP and pulmonary (Dr. Mayra Berg at [facility]). 6. History of hypothyroidism The patient [...] Dr. Jb Patterson, PCP Dr. Mayra Berg, Agriculture Instructor at [facility] documented in this encounter [facility] 11-19-2024 Note HNO ID: [id number] Author: TYLER DRAPER MD Service: ? Author [...] influenza A infection and was hospitalized at [facility]. Apparently his symptoms were severe enough [...] Ears: negative findings (more content not included)... [facility] 11-15-2024 History of Present illness Narrative Radiology [...] PATIENT PRESENTS WITH AN IMPLANTABLE OR ATTACHED TOOL GRINDING TECHNICIAN: No RADIOLOGY DEPARTMENT: CT; Exam(s) Completed: Chest PERIPHERAL IV DATA: Site assessment: Clean,Dry and Intact, Site disposition Discontinued SIGNED BY: RT Sonya(R) November 15, 2024 3:18 PM documented in this encounter [facility] 11-15-2024 Note HNO ID: [id number] Author: BROOK DONALDSON RT(R) Service: ? Author [...] PATIENT PRESENTS WITH AN IMPLANTABLE OR ATTACHED TOOL GRINDING TECHNICIAN: No RADIOLOGY DEPARTMENT: CT; Exam(s) Completed: Chest PERIPHERAL IV DATA: Site assessment: Clean,Dry and Intact, Site disposition Discontinued SIGNED BY: RT Sonya(Melodie) November 15, 2024 3:18 PM [facility] 11-15-2024 Note HNO ID: [id number] Author: MEG MCFARLAND RN Service: ? Author [...] DATE: November 15, 2024 TIME: 2:32 PM [facility] 10-21-2024 Note ID Cardiology - [facility] Subjective Chiki Juarez is a 79 y.o. year old male patient being seen for follow up [facility]. EKG from the ED was questionable for [...] of COPD and is currently followed at [facility]. He takes multiple inhalers. In June [...] of breath. He recently was seen at [facility] pulmonary and was recommended to follow-up [...] daily. He was seen by cardiology at [facility] who also agreed that the shortness of breath is not of a cardiac etiology. His health consultant was treating him with steroids. He also underwent walk test in September 2023 during which his oxygen dropped significantly. He previously underwent further evaluation at [facility] pulmonology and his follow-up PFTs showed improvement. He also had upper and lower extremity duplex venous ultrasounds and VQ scan of the lungs in January 2024 which were negative. He was admitted to the hospital at [place] on 10/11/2024 due to COPD exacerbation and [...] cough and shortnes (more content not included)... [facility] 10-14-2024 Telephone encounter Note Please sign pended labs for 6 month f/u if agreeable-will draw with CT 1 week prior Thank You! Gloria Weinberg, RN [facility] 10-14-2024 Miscellaneous Notes Please sign pended labs for 6 month f/u if agreeable-will draw with CT 1 week prior Thank You! Gloria Weinberg RN documented in this encounter [facility] 08-04-2024 History of Present illness Narrative [...] limited to risks of scarring, darker or rotary saw operator pigmentary changes, recurrence, incomplete removal and infection. [...] months, skin check documented in this encounter [facility] 06-20-2024 History of Present illness Narrative [...] OP CDI policy. Malignant neoplasm of prostate ([facility]) 05/21/2023 Mass of leg 04/15/2024 MGUS (monoclonal gammopathy of unknown significance) 09/09/2023 Microscopic hematuria 05/21/2023 Mixed hyperglyceridemia ([facility]) 05/23/2022 Moderate persistent asthma without complication ([facility]) 05/31/2024 Nasal congestion 05/21/2023 Neuropathy, arm 05/21/2023 Obesity due to excess calories 05/31/2024 JUANA (obstructive sleep apnea) 04/15/2024 Other chronic pain 05/31/2024 Poor urinary stream 05/21/2023 Prostate nodule 05/21/2023 Pulmonary hypertension ([facility]) 07/02/2023 Noted in 05/21/2023 [place] page 1, added per outpatient CDI policy. 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[facility]) 07/02/2023 Recurrent pneumonia 07/17/2021 Severe obesity (BMI 35.0-39.9) with comorbidity ([facility]) 08/03/2020 Ventral hernia 05/21/2023 [...] Partner Violence: Unknown (10/08/2023) Received from [facility] [place] Safety & Environment Fear of [...] of distress Assessment/Plan documented in this encounter [facility] 06-13-2024 Telephone encounter Note Patient is scheduled 11/15/24 at 1:30 PM Shea Kolb PSS [facility] 06-13-2024 Miscellaneous Notes Patient is scheduled 11/15/24 at 1:30 PM Shea Kolb PSS notified and transferred to [facility] to schedule CT as recommended prior to return visit with BRM. Valerie Mayes RN A voicemail was left on Chiki's phone to return our call to schedule a CT for November. Shea Kolb PSS Dr Mayra Berg, [facility] called and spoke with BRM yesterday [...] Valerie Mayes RN documented in this encounter [facility] 06-13-2024 Telephone encounter Note notified and transferred to PSS to schedule CT as recommended prior to return visit with BRM. Valerie Mayes RN [facility] 06-10-2024 Telephone encounter Note A voicemail was left on Chiki's phone to return our call to schedule a CT for November. Shea Kolb PSS [facility] 06-10-[address] Mayra Berg, [facility] called and spoke with BRM yesterday [...] to return visit 11/21/24 Valerie Mayes RN [facility] 06-09-2024 History of Present illness Narrative [...] for 10 days. documented in this encounter [facility] 06-05-2024 Note HNO ID: [id number] Author: TYLER DRAPER MD Service: ? Author [...] infection Head: normal (more content not included)... [facility] 06-05-2024 History of Present illness Narrative PATIENT [...] active disease. 02/01/2024 Bilateral lower extremity Doppscan ([facility]) The RIGHT lower extremity was imaged, [...] Trans x 2.56 cm Sagittal. 12/31/2023 CXR ([facility]) IMPRESSION: 1. No significant interval change and no new or worsening airspace disease. No pleural effusion or pneumothorax. 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 2. Stable cardiomediastinal silhouette. 3. Left chest wall CIED with leads in the right atrium and right ventricle. 4. Unchanged compression deformity in the mid thoracic spine. 09/24/2021 Skeletal bone survey ([facility]) No lytic lesions suggestive of multiple [...] random TRUS prostate biopsies with prostate adenocarcinoma, [place] 4+3, 3 cores involved out of 9, [...] PCP and pulmonary (Dr. Mayra Berg at [facility]). 6. History of hypothyroidism Continue management [...] Tyler Draper MD CC: Dr. Mayra Berg, Agriculture Instructor at [facility] documented in this encounter [facility] 05-31-2024 History of Present illness Narrative [...] Partner Violence: Unknown (10/08/2023) Received from [facility] Safety & Environment Fear of Current or [...] He fully understands. documented in this encounter [facility] 05-17-2024 Note Patient Education Nutrition BMI [...] for Disease Control and Prevention: cdc.gov ? [place] Heart Association: heart.org ? National Heart, Lung, and Blood [place]: nhlbi.nih.gov This information is not intended to replace advice given to you by your health care provider. Make sure you discuss any questions you have with your health care provider. Document Revised: 04/23/2023 Document Reviewed: 04/16/2023 flipClass Patient Education ? 2023 COMS Interactive. [facility] 05-13-2024 Note ID Cardiology - [facility] Subjective Chiki Juraez is a 79 y.o. year old male patient being seen for 6 mo follow up c,CANO, hyperlipidemia, and complete AV block s/p PPM. His device was interrogated a few weeks ago in the office. He has completed pulmonary rehab. Says his SOB has slightly improved since last visit in October 2023. His health consultant at [facility] told him his PFT's had [...] of COPD and is currently followed at [facility]. He takes multiple inhalers. In June [...] of breath. He recently was seen at [facility] pulmonary and was recommended to follow-up [...] daily. He was seen by cardiology at [facility] who also agreed that the shortness of breath is not of a cardiac etiology. His health consultant was treating him with steroids. He also underwent walk test in September 2023 during which his oxygen dropped significantly. He recently underwent further evaluation at [facility] pulmonology and his follow-up PFTs showed [...] Objective Visit Vitals (more content not included)... [facility] 05-03-2024 History of Present illness Narrative [...] limited to risks of scarring, darker or rotary saw operator pigmentary changes, recurrence, incomplete removal and infection. [...] mo th FBSE documented in this encounter [facility] 04-29-2024 History of Present illness Narrative [...] 1333 PATIENT DISCHARGED TO: Ambulatory patient, left [facility]. A Diagnostic radioactive procedure has taken place, with no further precautions necessary other than routine body substance precautions. More information regarding radiation safety can be found using this link: [email or web address] [email or web address] [email or web address] SIGNATURE: RT Sonya(R) PATIENT NAME: Chiki Juarez DATE: April 29, 2024 TIME: 1:44 PM PAGER/CONTACT #: documented in this encounter [facility] 04-29-2024 Note HNO ID: [id number] Author: GLORIA WEINBERG RN Service: ? Author [...] DATE: April 29, 2024 TIME: 1:35 PM [facility] 04-29-2024 Note HNO ID: [id number] Author: BROOK DONALDSON RT(R) Service: ? Author [...] 29, 2024 TIME: 1:44 PM PAGER/CONTACT #: [facility] 04-26-2024 Telephone encounter Note Patient is scheduled with MARY Simmons on 05/03/24 @ 11:00. [facility] 04-26-2024 Miscellaneous Notes Patient is scheduled with MARY Simmons on 05/03/24 @ 11:00. Records faxed to [facility]. Rhona: Information ready for you. Jennie Velasquez Please ref patient to [facility]. Dx Skin Lesion blaise facial area. Their office to call the patient to schedule/ Rhona, Please fax records Julius, Please follow up on this appt. documented in this encounter [facility] 04-22-2024 Hospital Discharge instructions Patient Education [...] treatment? Where to find more information The [place] [employer]: www.cancer.org [place] [employer]: www.auanet.org Contact a health care [...] provider. Document Revised: 01/27/2022 Document Reviewed: 01/27/2022 flipClass Patient Education 2023 COMS Interactive. Follow Up Care 03/09/2023 12:17:11 With:MIKE VENTURA, Oni Sewell, URL Address: [facility] [address] [place] [address] [phone] When: Unknown [facility] 04-22-2024 Note Patient Education Oncology Prostate [...] Where to find more information ? The [place] [employer]: www.cancer.org ? [place] [employer]: www.auanet.org Contact a health care [...] of the rectum. (more content not included)... [facility] 04-20-2024 Telephone encounter Note Records faxed to [facility]. [facility] 04-20-2024 Telephone encounter Note Rhona: Information ready for you. Jennie Velasquez [facility] 04-19-2024 Telephone encounter Note Please ref patient to [facility]. Dx Skin Lesion blaise facial area. Their office to call the patient to schedule/ Rhona, Please fax records Julius, Please follow up on this appt. [facility] 04-18-2024 Note HNO ID: [id number] Author: TYLER DRAPER MD Service: ? Author [...] visit here he followed up with his health consultant at [facility] for 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 For [...] itching. HEMATOLOGY/LYMPHOLOGY: Neg (more content not included)... [facility] 04-18-2024 History of Present illness Narrative PATIENT [...] visit here he followed up with his health consultant at [facility] for 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 For [...] RADIOLOGY/OTHER STUDIES: 02/01/2024 Bilateral lower extremity Doppscan ([facility]) The RIGHT lower extremity was imaged, [...] Trans x 2.56 cm Sagittal. 12/31/2023 CXR ([facility]) IMPRESSION: 1. No significant interval change and no new or worsening airspace disease. No pleural effusion or pneumothorax. 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 2. Stable cardiomediastinal silhouette. 3. Left chest wall CIED with leads in the right atrium and right ventricle. 4. Unchanged compression deformity in the mid thoracic spine. 09/24/2021 Skeletal bone survey ([facility]) No lytic lesions suggestive of multiple [...] random TRUS prostate biopsies with prostate adenocarcinoma, [place] 4+3, 3 cores involved out of 9, [...] PCP and pulmonary (Dr. Mayra Berg at [facility]). 6. History of hypothyroidism Continue management [...] Tyler Draper MD CC: Dr. Mayra Berg, Agriculture Instructor at [facility] documented in this encounter [facility] 02-02-2024 Telephone encounter Note Pt informed of [employer] message and denies any questions, needs or concerns at this time. Appointment verified. Valerie Mayes RN [facility] 02-02-2024 Miscellaneous Notes Pt informed of BRM message and denies any questions, needs or concerns at this time. Appointment verified. Valreie Mayes RN ----- Message from Tyler Draper MD sent at 02/02/2024 8:08 AM EDT ----- Please inform the patient that his labs are stable. We will continue observation and see him back as scheduled. documented in this encounter [facility] 02-02-2024 Telephone encounter Note ----- Message from Tyler Draper MD sent at 02/02/2024 8:08 AM EDT ----- Please inform the patient that his labs are stable. We will continue observation and see him back as scheduled. [facility] 03-31-2023 Hospital Discharge instructions Patient Education [...] [facility]rology [address] [place] [address]- Business (1) When:03/31/2024 11:58:05 Comments:With a renal ultrasound [facility] 03-09-2023 Hospital Discharge instructions Patient Education [...] urethra. Follow these instructions at home: Take kyrx-ghq-chwjlxm and prescription medicines only as told by [...] provider. Document Revised: 02/19/2022 Document Reviewed: 02/19/2022 flipClass Patient Education 2022 COMS Interactive. Follow Up Care 02/13/2023 11:39:29 With:MIKE VENTURA, Oni Sewell, URL Address: [facility] [address] [place] [address]- [phone] When: Unknown Comments:schedule cysto and renal US1 yr w/ PSA [facility] [place] 08-05-2022 Miscellaneous Notes Informed pt of Dr Draper's message. Pt verbalized understanding and denies further needs at this time. Aby Hernandez RN ----- Message from Tyler Draper MD sent at 08/04/2022 12:29 PM EST ----- Please inform the patient that his PSA is stable at 0.26. We will continue as planned. Thanks, BRM documented in this encounter [facility] 07-25-2022 Miscellaneous Notes Spoke to patient [...] awhile please advise documented in this encounter [facility] 01-16-2022 History of Present illness Narrative HEMATOLOGIC ONCOLOGY FOLLOW UP TELEPHONE ENCOUNTER Elements in this clinic note that are critical to medical decision making have been carefully reviewed and included from my prior clinic note dated: September 26, 2021 January 16, 2022 PCP and other physicians involved in care: Will Sherwood (PCP), Isas Sousa DIAGNOSIS: Multiple myeloma ONCOLOGIC HISTORY AND [...] random TRUS prostate biopsies with prostate adenocarcinoma, [place] 4+3, 3 cores involved out of 9, [...] x2 and pneumonia, following pulmonology team at [facility]. He has a family history significant [...] with PET CR ?Bronchiectasis, follows pulmonology at [facility] Possible cystic fibrosis, follows pulmonology at [facility], genetic testing pending Previous surgeries include a pacemaker in 2019. No family history of hematologic or oncologic issues but significant for cystic fibrosis in brother and nephew; granddaughter is a carrier of cystic fibrosis. Patient lives in [place], [place] with his , Nicolasa. He has 4 children. He has a 72-pqsv-bssc smoking history and quit in 1986. He [...] Thus, a bone marrow biopsy would not change room attendant and it is okay to hold off [...] CC: Will Sherwood documented in this encounter [facility] 01-09-2022 History of Present illness Narrative [...] random TRUS prostate biopsies with prostate adenocarcinoma, [place] 4+3, 3 cores involved out of 9, [...] x2 and pneumonia, following pulmonology team at [facility]. He has a family history significant [...] with PET CR ?Bronchiectasis, follows pulmonology at [facility] Possible cystic fibrosis, follows pulmonology at [facility], genetic testing pending Previous surgeries include a pacemaker in 2020. No family history of hematologic or oncologic issues but significant for cystic fibrosis in brother and nephew; granddaughter is a carrier of cystic fibrosis. Patient lives in [place], [place] with his , Nicolasa. He has 4 children. He has a 85-fmko-gygz smoking history and quit in 1986. He [...] Thus, a bone marrow biopsy would not change room attendant and it is okay to hold off for now. PSA stable at 0.30. He will follow up with Dr. Sousa for his history of prostate cancer. Hosea Herrera MD I spent a total of 20 minutes on the date of the service which included preparing to see the patient, memj-aj-titj patient care, completing clinical documentation, obtaining and/or reviewing separately obtained history, performing a medically appropriate examination, counseling and educating the patient/family/caregiver, ordering medications, tests, or procedures, independently interpreting results (not separately reported) and communicating results to the patient/family/caregiver. CC: Will Sherwood documented in this encounter [facility] 11-19-2021 Hospital Discharge instructions Patient Education [...] who: Are older than age 65. Are -[place]. Are obese. Have a family history of [...] cells. Follow these instructions at home: Take blog-jhk-qptkzfb and prescription medicines only as told by [...] 08/03/2006 Document Revised: 07/16/2018 Document Reviewed: 04/13/2017 flipClass Patient Education 2020 COMS Interactive. Follow Up Care 10/30/2020 10:17:46 With:Young Manriquez MD, Romeo Valles, URO Address: [facility] [address] [place] [address]- [phone] When: Unknown [facility] Evaluation + Plan note Future Appointments Appointment Date:11/25/2022 10:15:00 AM Scheduled Provider:Romeo Vidal Jr., MD Location:[facility] Appointment Type:URO Office Visit [facility] Evaluation + Plan note Future Appointments Appointment Date:01/22/2024 11:00:00 AM Scheduled Provider: [facility] Appointment Type:FM Medicare Wellness Subsequent Diagnostic Tests PendingT3 Free 01/26/23 [facility] Evaluation + Plan note Future Appointments Appointment Date:03/24/2023 10:00:00 AM Scheduled Provider: Location:[facility] Appointment Type:Urology CALL PAT FT Appointment Date:03/31/2023 11:15:00 AM Scheduled Provider: Location:[facility] Appointment Type:Urology FT Appointment Date:01/22/2024 11:00:00 AM Scheduled Provider: Location:[facility] Appointment Type:FM Medicare Wellness Subsequent Appointment Date:03/14/2024 11:15:00 AM Scheduled Provider:Oni [facility]KEON MD [facility] Office Visit Diagnostic Tests PendingPSA Total 03/09/23 [facility] Evaluation + Plan note Future Appointments Appointment Date:01/22/2024 11:00:00 AM Scheduled Provider: Location:[facility] Appointment Type:FM Medicare Wellness Subsequent Appointment Date:03/14/2024 11:15:00 AM Scheduled Provider:Oni MCKEON MD [facility] Office Visit [facility] Evaluation + Plan note Future Appointments Appointment Date:12/02/2023 01:00:00 PM Scheduled Provider:Pito Patterson MD Location:[facility] Appointment Type:FM Open Appointment Date:01/18/2024 01:00:00 PM Scheduled Provider:Pito Patterson MD Location:[facility] Appointment Type:FM Open Appointment Date:01/22/2024 11:00:00 AM Scheduled Provider: Location:[facility] Appointment Type: Medicare Wellness Subsequent Appointment Date:03/14/2024 11:15:00 AM Scheduled Provider:Oni MCKEON MD Location:[facility] Appointment Type:URO Office Visit [facility] Evaluation + Plan note Future Appointments Appointment Date:05/17/2024 10:00:00 AM Scheduled Provider:Pito Patterson MD Location:[facility] Appointment Type: Open Appointment Date:02/14/2025 08:00:00 AM Scheduled Provider: Location:[facility] Appointment Type: Medicare Wellness Subsequent Appointment Date:04/24/2025 09:45:00 AM Scheduled Provider:Oni MCKEON MD Location:[facility] Appointment Type:URO Office Visit Diagnostic Tests PendingPSA Total 04/22/24 [facility] Evaluation + Plan note Future Appointments Appointment Date:04/24/2025 09:45:00 AM Scheduled Provider:Oni MCKEON MD Location:[facility] Appointment Type:URO Office Visit Appointment Date:02/15/2026 09:30:00 AM Scheduled Provider: Location:[facility] Appointment Type: Medicare Wellness Subsequent Diagnostic Tests PendingHCV Antibody RFX to Quant PCR 02/16/25 [facility] Evaluation note Diagnosis MGUS (monoclonal gammopathy of unknown significance)- Primary Monoclonal paraproteinemia [facility] Diagnosis B12 deficiency- Primary Other B-complex deficiencies Diffuse large B-cell lymphoma, unspecified body region (HCC) [facility] Diagnosis MGUS (monoclonal gammopathy of unknown significance)- Primary Monoclonal paraproteinemia Macrocytic anemia Unspecified deficiency anemia [facility] Diagnosis MGUS (monoclonal gammopathy of unknown significance)- Primary Monoclonal paraproteinemia History of lymphoma Personal history of other lymphatic and hematopoietic neoplasm Lymph node enlargement Enlargement of lymph nodes Skin lesion of face Unspecified disorder of skin and subcutaneous tissue [facility] History of lymphoma Personal history of other lymphatic and hematopoietic neoplasm Lymph node enlargement Enlargement of lymph nodes [facility] Diagnosis Squamous cell carcinoma of scalp- Primary Other malignant neoplasm of scalp and skin of neck 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 documented in this encounter [facility] HealthcareEvaluation noteNo assessment information availableTwin City Hospital Work Phone: Evaluation note* Diagnosis MGUS (monoclonal gammopathy of unknown significance)- Primary Monoclonal paraproteinemia History of lymphoma Personal history of other lymphatic and hematopoietic neoplasm History of prostate cancer Personal history of malignant neoplasm of prostate Skin lesion of face Unspecified disorder of skin and subcutaneous tissue [facility] Diagnosis Wound infection- Primary Posttraumatic wound infection not elsewhere classified Squamous cell carcinoma of scalp Other malignant neoplasm of scalp and skin of neck [facility] Localized enlarged lymph nodes- Primary Enlargement of lymph nodes [facility] Diagnosis Squamous cell carcinoma of scalp- Primary Other malignant neoplasm of scalp and skin of neck Wound infection Posttraumatic wound infection not elsewhere classified Thyroid nodule (CMS/HCC) Nontoxic uninodular goiter [facility] Diagnosis Hemangioma of skin and subcutaneous tissue- Primary Neoplasm of unspecified behavior of bone, soft tissue, and skin Seborrheic keratosis Actinic keratosis documented in this encounter [facility] HealthcareEvaluation note* Diagnosis Capillary angioma- Primary Nevus, non-neoplastic Melanocytic nevus of trunk Benign neoplasm of skin of trunk, except scrotum Seborrheic keratosis Actinic keratosis History of SCC (squamous cell carcinoma) of skin Personal history of other malignant neoplasm of skin Lentigo simplex Other dyschromia [facility] Diagnosis Diffuse large B-cell lymphoma, unspecified body region (HCC)- Primary [facility] Diagnosis Localized enlarged lymph nodes Enlargement of lymph nodes Diffuse large B-cell lymphoma, unspecified body region (HCC) [facility] MGUS (monoclonal gammopathy of unknown significance)- Primary Monoclonal paraproteinemia History of prostate cancer Personal history of malignant neoplasm of prostate Acquired hypothyroidism Unspecified hypothyroidism [facility] Diagnosis Melanocytic nevus of trunk- Primary Benign neoplasm of skin of trunk, except scrotum History of SCC (squamous cell carcinoma) of skin Personal history of other malignant neoplasm of skin Seborrheic keratosis Actinic keratosis Ayala angioma Other seborrheic dermatitis documented in this encounter [facility] Narrative No data available for this section [facility] Hospital Discharge instructions No data available for this section [facility] Additional Instructions No exertional [...] or concerns [facility] Progress note No data available for this section [facility] Summary Purpose Family History No Family History Records Found Relationship Condition Age at Onset Recorded Date/T ruma mother Malignant neoplasm of lung Unknown Unknown Advance Directives No Advanced Directives Records Found Advance Directive Response Recorded Date/ Time Advance Directives No June 01, 2024 10:37am Hospital Course Note MR#: [id number] [facility] Pt. Name: Chiki Juarez Admitted: 06/26/2020 Discharged: [...] asthma, lymphoma, and hypothyroidism, who transferred to [facility] for evaluation of poss (more content not included)... Reason for Referral Specialty Diagnoses / Procedures Referred By Chelsie t Referred To Contact CT IMAGING Diagnoses Localized enlarged lymph nodes Procedures CT CHEST W IVCON DIAGNOSTIC COMPUTED TOMOGRAPHY THORAX W/CONTRAST Tyler Draper MD [address] [place] [address] [place] [address] [facility] [place] [address] Referral ID Status Reason Start Date Expiration Date Visits Requested Visits Authorized [id number] Authorized Auto-Generat ed Referral 11/15/2024 07/10/2025 1 1 Specialty Diagnoses / Procedures Referred By Chelsie t Referred To Contact Dermatology Diagnoses Skin lesion of face Procedures CONSULT TO DERMATOLOGY OFFICE/OUTPATIENT [facility] 60 MINUTES Tyler Draper MD [address] [place] [address] [place] [address] Referral ID Status Reason Start Date Expiration Date Visits Requested Visits Authorized [id number] Authorized PCP Requested Referral 04/19/2024 04/19/2025 1 1 Specialty Diagnoses / Procedures Referred By Chelsie simon Referred To Contact MOLECULAR & FUNCTIONAL IMAGING Diagnoses History of lymphoma Lymph node enlargement Procedures NM PET/CT SKULL-THIGH SUBSEQUENT PET IMAGING CT ATTENUATION SKULL BASE MID-THIGH Tyler Draper MD [address] [place] [address] [place] [address] Molecular & Functional Imaging [address] [place] [address] Referral ID Status Reason Start Date Expiration Date Visits Requested Visits Authorized [id number] Authorized Auto-Generat ed Referral 04/19/2024 05/19/2025 1 [...] and content) DATE CREATED AUTHOR 07/16/2020 [facility] DATE CREATED AUTHOR AUTHOR'S ORGANIZ ATION 04/26/2022 [facility] DATE CREATED AUTHOR AUTHOR'S ORGANIZ ATION 10/16/2024 [facility] DATE CREATED AUTHOR AUTHOR'S ORGANIZ ATION 11/24/2024 [facility] DATE CREATED AUTHOR AUTHOR'S ORGANIZ ATION 02/05/2025 [facility] EPIC DATE CREATED AUTHOR AUTHOR'S ORGANIZ ATION 02/19/2025 [facility] DATE CREATED AUTHOR AUTHOR'S ORGANIZ ATION 02/22/2025 [facility] DATE CREATED AUTHOR AUTHOR'S ORGANIZ ATION 02/27/2025 [facility] DATE CREATED AUTHOR AUTHOR'S ORGANIZ ATION 03/03/2025 [facility] Source Comments (unrecognize d section and content) In the event this informatio n is protected by the Federal Confidentiality of Alcohol and Drug Abuse Patient Records regulations: The Federal rules restrict any use of the information to criminally investigate or prosecute any alcohol or drug abuse patient.[facility] the event this information is protected by the Federal Confidentiality of Alcohol and Drug Abuse Patient Records regulations: The Federal rules restrict any use of the information to criminally investigate or prosecute any alcohol or drug abuse patient.[facility] the event this information is protected by the Federal Confidentiality of Alcohol and Drug Abuse Patient Records regulations: The Federal rules restrict any use of the information to criminally investigate or prosecute any alcohol or drug abuse patient.[facility] the event this information is protected by the Federal Confidentiality of Alcohol and Drug Abuse Patient Records regulations: The Federal rules restrict any use of the information to criminally investigate or prosecute any alcohol or drug abuse patient.[facility] the event this information is protected by the Federal Confidentiality of Alcohol and Drug Abuse Patient Records regulations: The Federal rules restrict any use of the information to criminally investigate or prosecute any alcohol or drug abuse patient.[facility] the event this information is protected by the Federal Confidentiality of Alcohol and Drug Abuse Patient Records regulations: The Federal rules restrict any use of the information to criminally investigate or prosecute any alcohol or drug abuse patient.[facility] the event this information is protected by the Federal Confidentiality of Alcohol and Drug Abuse Patient Records regulations: The Federal rules restrict any use of the information to criminally investigate or prosecute any alcohol or drug abuse patient.[facility] the event this information is protected by the Federal Confidentiality of Alcohol and Drug Abuse Patient Records regulations: The Federal rules restrict any use of the information to criminally investigate or prosecute any alcohol or drug abuse patient.[facility] the event this information is protected by the Federal Confidentiality of Alcohol and Drug Abuse Patient Records regulations: The Federal rules restrict any use of the information to criminally investigate or prosecute any alcohol or drug abuse patient.[facility]In the event this information is protected by the Federal Confidentiality of Alcohol and Drug Abuse Patient Records regulations: The Federal rules restrict any use of the information to criminally investigate or prosecute any alcohol or drug abuse patient.[facility] the event this information is protected by the Federal Confidentiality of Alcohol and Drug Abuse Patient Records regulations: The Federal rules restrict any use of the information to criminally investigate or prosecute any alcohol or drug abuse patient.[facility] the event this information is protected by the Federal Confidentiality of Alcohol and Drug Abuse Patient Records regulations: The Federal rules restrict any use of the information to criminally investigate or prosecute any alcohol or drug abuse patient.[facility]In the event this information is protected by the Federal Confidentiality of Alcohol and Drug Abuse Patient Records regulations: The Federal rules restrict any use of the information to criminally investigate or prosecute any alcohol or drug abuse patient.[facility] the event this information is protected by the Federal Confidentiality of Alcohol and Drug Abuse Patient Records regulations: The Federal rules restrict any use of the information to criminally investigate or prosecute any alcohol or drug abuse patient.[facility]In the event this information is protected by the Federal Confidentiality of Alcohol and Drug Abuse Patient Records regulations: The Federal rules restrict any use of the information to criminally investigate or prosecute any alcohol or drug abuse patient.[facility] Reason for Visit (unrecogniz ed section [...] ATTENUATION SKULL BASE MID-THIGH Tyler Draper MD [address] [place] [address] [place] [address] Molecular & Functional Imaging [address] [place] [address] Referral ID Status Reason Start Date Expiration Date V isits Requested Visits Authorized [id number] Closed Auto-Generate d Referral 04/19/2024 05/19/2025 1 1 Reason Comments Suspicious Skin Lesion New patient : SCC left cheek / right scalp Specialty Diagnoses / Procedures Referred By Chelsie simon Referred To Contact Otolaryngology Diagnoses 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 Procedures [place] OFFICE/OUTPATIENT NEW HIGH MDM 60 MINUTES Crys Taylor PA [address] [place] [address] Phone: tel: fax: Connor Crawley, DO [address] [place] [address] Phone: tel: fax: Referral ID Status Reason Start Date Expiration Date V isits Requested Visits Authorized [id number] Closed Specialty Services Required 05/09/2024 11/05/2024 1 1 Reason Comments 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) Reason Comments Post-op Post op exc SCC scal p Reason Comments Pet results Reason Comments Post-op Specialty Diagnoses / Procedures Referred By Contac t Referred To Contact Dermatology Diagnoses skin lesion of face Procedures office visit Tyler Draper MD [address] [place] [address] Lucie Tompkins MD [address] [facility] [address] [place] [address] Referral ID Status Reason Start Date Expiration Date Visits Re quested Visits Authorized [id number] Closed 04/21/2024 10/18/2024 1 1 Reason Comments Skin Check Reason Comments Orders Reason Comments Radiology CT Specialty Diagnoses / Procedures Referred By Contac t Referred To Contact CT IMAGING Diagnoses Localized enlarged lymph nodes Procedures CT CHEST W IVCON DIAGNOSTIC COMPUTED TOMOGRAPHY THORAX W/CONTRAST Tyler Draper MD [address] [place] [address] Phone: tel: fax: [place] [address] Referral ID Status Reason Start Date Expiration Date V isits Requested Visits Authorized [id number] Closed Auto-Generate d Referral 11/15/2024 07/10/2025 1 1 Reason Comments MGUS Reason Onset Date Comments TSH results 11/24/2024 Care Teams (unrecognized sec tion and content) Mechanical Test Engineer Relationship Specialty Start Date End Date Will Sherwood MD [address] [place] [address] PCP - General 08/01/05 Mechanical Test Engineer Relationship Specialty Start Date End Date Will Sherwood MD [address] [facility] [place] [address] PCP - General 08/01/05 Mechanical Test Engineer Relationship Specialty Start Date End Date Will Sherwood MD [address] [place] [address] PCP - General 08/01/05 Mechanical Test Engineer Relationship Specialty Start Date End Date Will Sherwood MD [address] [place] [address] PCP - General 08/01/05 Mechanical Test Engineer Relationship Specialty Start Date End Date Pito Patterson MD [address] [place] [address] PCP - General Family Medicine 07/23/23 Mechanical Test Engineer Relationship Specialty Start Date End Date Pito Patterson MD [address] [facility] [place] [address] PCP - General Family Medicine 07/23/23 Mechanical Test Engineer Relationship Specialty Start Date End Date Pito Patterson MD [address] [place] [address] PCP - General Family Medicine 07/23/23 Mechanical Test Engineer Relationship Specialty Start Date End Date Pito Patterson MD [address] [facility] [place] [address] PCP - General Family Medicine 07/23/23 Mechanical Test Engineer Relationship Specialty Start Date End Date Unallocated, Noms MD [address] [place] [address] PCP - General Family Medicine 04/08/23 Crys Taylor PA [address] [place] [address] Physician Joy Loading Machine Operator Dermatology 05/31/24 Connor Crawley DO [address] [place] [address] Otolaryngology 05/31/24 Mechanical Test Engineer Relationship Specialty Start Date End Date Pito Patterson MD [address] [place] [address] PCP - General Family Medicine 05/31/24 Crys Taylor PA [address] [place] [address] Physician Joy Loading Machine Operator Dermatology 05/31/24 Connor Crawley DO [address] [place] [address] Otolaryngology 05/31/24 Team Status: Active Member Role Status Dates Pito Patterson MD Primary Care Provider Active Team Status: Inactive Member Role Status Dates Connor Crawley DO Attending Provider Active S tart: June 01, 2024 End: June 01, 2024 Pito Patterson MD Primary Care Provider Active Start: June 01, 2024 End: June 01, 2024 Mechanical Test Engineer Relationship Specialty Start Date End Date Pito Patterson MD [address] [place] [phone] PCP - General Family Medicine 05/31/24 Crys Taylor PA [address] [place] [address] Physician Joy Loading Machine Operator Dermatology 05/31/24 Connor Crawley DO [address] [place] [address] Otolaryngology 05/31/24 Mechanical Test Engineer Relationship Specialty Start Date End Date Pito Patterson MD [address] [place] [address] PCP - General Family Medicine 07/23/23 Mechanical Test Engineer Relationship Specialty Start Date End Date Pito Patterson MD [address] [place] [address] PCP - General Family Medicine 05/31/24 Crys Taylor PA [address] [place] [address] Physician Joy Loading Machine Operator Dermatology 05/31/24 Connor Crawley DO [address] [place] [address] Otolaryngology 05/31/24 Mechanical Test Engineer Relationship Specialty Start Date End Date Unallocated, Mohit Galvan MD [address] [place] [address] PCP - General Family Medicine 04/08/23 Mechanical Test Engineer Relationship Specialty Start Date End Date Unallocated, Mohit Galvan MD [address] [facility] [place] [address] PCP - General Family Medicine 04/08/23 Mechanical Test Engineer Relationship Specialty Start Date End Date Pito Patterson MD [address] [place] [phone] PCP - General Family Medicine 05/31/24 Crys Taylor PA [address] [place] [address] Physician Joy Loading Machine Operator Dermatology 05/31/24 Connor Crawley DO [address] [place] [address] Otolaryngology 05/31/24 Mechanical Test Engineer Relationship Specialty Start Date End Date Pito Patterson MD [address] [place] [address] PCP - General Family Medicine 07/23/23 Mechanical Test Engineer Relationship Specialty Start Date End Date Pito Patterson MD [address] [place] [address] PCP - General Family Medicine 07/23/23 Mechanical Test Engineer Relationship Specialty Start Date End Date Pito Patterson MD [address] [place] [address] PCP - General Family Medicine 07/23/23 Mechanical Test Engineer Relationship Specialty Start Date End Date Pito Patterson MD [address] [place] [address] PCP - General Family Medicine 07/23/23 Mechanical Test Engineer Relationship Specialty Start Date End Date Pito Patterson MD [address] [place] [address] PCP - General Family Medicine 05/31/24 Crys Taylor PA [address] [place] [address] Physician Joy Loading Machine Operator Dermatology 05/31/24 Connor Crawley DO [address] [place] [address] Otolaryngology 05/31/24 Mechanical Test Engineer Relationship Specialty Start Date End Date Pito Patterson MD [address] [place] [address] PCP - General Family Medicine 05/31/24 Crys Taylor PA [address] [place] [address] Physician Joy Loading Machine Operator Dermatology 05/31/24 Connor Crawley DO [address] [place] [address] Otolaryngology 05/31/24 FOR RECORDS PERTAINING TO PATIENTS [...] BE BASED ON THE PRIMARY CLINICAL RECORDS. [employer] [facility]. provides no warranty or guarantee of the accuracy or completeness of information in this document.
--- OUTSIDE RECORDS SUMMARY | 2025-03-06 06:58 | XMS_ITS | CCD ---
Author Organization [facility] Care Team Providers Care Delivery And Mail Sorter Name Role Phone CHANCECRESCENCIO Referring WILL Aguilar Primary Care Unavailable MYA BHAKTA Attending Unavailable MYA BHAKTA Admitting Unavailable [place] Procedure Practitioner Unavailab CONNOR Herrera Surgeon Unavailable MYA BHAKTA Surgeon Unavailable [place] Procedure Practitioner Unavailab WILL Jackson Primary Care [...] Unavailable Will Sherwood MD Primary Care Provider [phone] Pito Patterson. Primary Care Physician Pito Patterson MD Primary Care Provider [phone] Unallocated Mohit VENTURA Provider Primary Care Provi preet Crys Liu Unavailable Connor Crawley DO Unavailable Pito Patterson MD Primary Care Provider DO [...] Attending Unavailable TYLER DRAPER Referring Unavailable ROSS, PIOT E Primary Care Unavailable TYLER DRAPER Referring [...] ] Drug Allergy 2 Other: See Comments [facility] (2 sources) Latex Propensity to adverse [...] 1 VIAL VIA NEBULIZER EVERY 4 HOURS, [facility], 168, cm, 08/25/24 11:21:00 EST, Height/Length Dosing, [...] 1 VIAL VIA NEBULIZER EVERY 4 HOURS, [facility], 161, cm, 02/15/24 10:32:00 EDT, Height/Length Dosing, 102, kg, 02/15/24 10:32:00 EDT, Weight Dosing Start Date: 02/22/24 Status: Ordered Start: 10-19-2023 take 1 dose by inhal ation every four hours albuterol 0.083% Inh Kasie 3 mL See Instructions, 300 mL, Refill(s) 3, INHALE 1 VIAL VIA NEBULIZER EVERY 4 HOURS, [facility]pharmacy #[id number], 168, cm, 10/19/23 8:08:00 EST, Height/Length [...] 1 VIAL VIA NEBULIZER EVERY 6 HOURS, [facility], 162, cm, 10/28/22 15:18:00 EDT, Height/Length Dosing, [...] DAY, # 360 mL, Refills(s) 3, Pharmacy: [facility] STORE 47158, 168, cm, 04/22/24 10:00:00 EDT, Height/Length Dosing, [...] BID, # 120 mL, Refills(s) 11, Pharmacy: [facility]/pharmacy #[id number], 168, cm, 10/19/23 8:08:00 EST, Height/Length [...] BID, # 120 mL, Refills(s) 11, Pharmacy: [facility]/pharmacy #[id number], 162, cm, 10/28/22 15:18:00 EDT, Height/Length [...] Active Start: 03-09-2023 take 1 capsule by [facility] once daily at bedtime gabapentin 300 mg Cap 300 mg = 1 cap(s), Oral, Once a day (at bedtime), # 30 cap(s), Refills(s) 0, Pharmacy: [facility]/pharmacy #[id number], 168, cm, 03/09/23 11:04:00 EDT, Height/Length Dosing, 103, kg, 03/09/23 11:04:00 EDT, Weight Dosing Start Date: 03/09/23 Status: Ordered Start: 01-22-2023 take 1 capsule by [facility] once daily at bedtime gabapentin 300 mg Cap 300 mg = 1 cap(s), Oral, Once a day (at bedtime), # 30 cap(s), Refills(s) 0, Pharmacy: [facility]/pharmacy #[id number], 162, cm, 01/22/23 13:19:00 EDT, Height/Length [...] nasal route twice daily ipratropium Nasal 0.06% [place] 2 spray(s), Nasal, BID for 90 day(s), 45 mL, Refill(s) 3, PLACE 2 SPRAYS IN EACH NOSTRIL TWO TIMES DAILY., [facility]/pharmacy #[id number], 168, cm, 03/09/23 11:04:00 EDT, Height/Length Dosing, 103, kg, 03/09/23 11:04:00 EDT, Weight Dosing Start Date: 03/13/23 Stop Date: 03/07/24 Status: Ordered Start: 02-20-2023 take 1 dose nasal ro [place] twice daily, then take 2 spray(s) nasal route twice daily ipratropium Nasal 0.06% [place] 2 spray(s), Nasal, BID, 1 EA, Refill(s) 1, PLACE 2 SPRAYS IN EACH NOSTRIL TWO TIMES DAILY., [facility]/pharmacy #[id number], 162, cm, 01/22/23 13:19:00 EDT, Height/Length Dosing, 98.3, kg, 01/22/23 13:19:00 EDT, Weight Dosing Start Date: 02/20/23 Status: Ordered Start: 01-22-2023 take 1 dose nasal ro [place] twice daily, then take 2 spray(s) nasal route twice daily ipratropium Nasal 0.06% [place] 2 spray(s), Nasal, BID, 1 EA, Refill(s) 1, PLACE 2 SPRAYS IN EACH NOSTRIL TWO TIMES DAILY., [id number], cm, 01/22/23 13:19:00 EDT, Height/Length Dosing, 98.3, kg, 01/22/23 13:19:00 EDT, Weight Dosing Start Date: 01/22/23 Status: Ordered levothyroxine sodium 0.1 mg oral tablet (20 sources) l-Thyroxine Start: 01-31-2025 take 1 tablet by mouth once daily levothyroxine 100 mcg (0.1 mg) Tab See Instructions, TAKE 1 TABLET BY MOUTH EVERY DAY, # 90 tab(s), Refills(s) 0, Pharmacy: [id number], 168, cm, 11/24/24 13:08:00 EDT, Height/Length Dosing, 100.3, kg, 11/24/24 13:08:00 EDT, Weight Dosing Start Date: 01/31/25 Status: Ordered Quantity: 90.0 Unit: tab(s) Repeat number: 1 Start: 04-22-2024 take 1 tablet by noe th once daily levothyroxine 100 mcg (0.1 mg) Tab See Instructions, TAKE 1 TABLET BY MOUTH EVERY DAY, # 90 tab(s), Refills(s) 0, Pharmacy: [email or web address] [id number], 161, cm, 02/15/24 10:32:00 EDT, Height/Length Dosing, 102, kg, 02/15/24 10:32:00 EDT, Weight Dosing Start Date: 04/22/24 Status: Ordered Start: 10-19-2023 take 1 tablet by noe th once daily levothyroxine 100 mcg (0.1 mg) Tab 100 mcg = 1 tab(s), Oral, Daily, # 90 tab(s), Refills(s) 0, Pharmacy: [facility]/pharmacy #[id number], 168, cm, 10/19/23 8:08:00 EST, Height/Length [...] Refill(s) 0, Oxygen - 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 4LPM Start Date: 02/15/24 Status: Ordered Repeat number: 1 Start: 02-15-2024 Oxygen - for H ome 4 L/min, Daily, Refill(s) 0, Oxygen - 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 4LPM Start Date: 02/15/24 Status: Ordered polyethylene glycol 3350 20993 mg powder for oral solution (15 sources) [...] 3 EA, Refill(s) 3, [facility]), 168, cm, 03/09/23 11:04:00 EDT, [...] capsule by in halation once daily Tiotropium [place] Active 1 CAP INHALATION Daily June 01, [...] procedure, # 2 tab(s), Refills(s) 0, Pharmacy: [facility]/pharmacy #[id number], 168, cm, 03/09/23 11:04:00 EDT, Height/Length [...] Ordered Start: 01-22-2023 take 1 tablet by [facility] once daily potassium chloride 10 mEq ER Tab 10 mEq = 1 tab(s), Oral, Daily, Refills(s) 0 Start Date: 01/22/23 Status: Ordered Start: 06-26-2021 take 1 capsule by mo [facility] once daily potassium chloride 10 [...] 05-31-2024 02-24-2019 Chronic Other aftercare (1 source) 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 pt notified. Send rx to [facility] From: Rose Marie Sauceda ([facility] - Clinical) To: Marlys Carcamo; Sent: 02/23/2025 14:49:36 EDT Show up: 02/23/2025 14:49:00 EDT Subject: RE: Ambulatory Reminder Normal [facility] .Interpretation:on Interpretation: Comment Invalid Interpretation Code [facility] Comment on above: Result Comment: Not infected with HCV unless early or acute infection is suspected (which may be delayed in an immunocompromised individual), or other evidence exists to indicate HCV infection. Performed at: [facility] [id number] PhD Sahra Robledo Performed By: #### 2 [id number] #### [facility] [address] [place] [address] HCV Antibody RFX to Quant PC Mac 02-19-2025 HCV Ab Non-Reactive Invalid Interpretation Code Non Reactive [facility] Comment on above: Result Comment: Perf ormed at: [facility] [id number] PhD Sahra Robledo Performed By: #### 2 [id number] #### [facility] [address] [place] [address] CHEMISTRYOrdered By: SYSTEM SYSTEM on 02-16-2025 Albumin [...] (Bld) [Mass fraction] 6.0 % High <=5.9% [facility] ChemAutoSS CMPon 02-16-2025 Albumin [Mass/Vol] 3.8 g/dL Normal 3.3-5.0 [facility] Comment on above: Performed By: #### 2 [id number] #### [facility] [address] [place] [address] Albumin/Globulin [Mass ratio] 1.5 {ratio} Normal 1.1-2.2 [facility] Comment on above: Performed By: #### 2 [id number] #### [facility] [address] [place] [address] Alk Phos 81 Int._Unit/L Normal 21-98 [facility] Comment on above: Performed By: #### 2 [id number] #### [facility] [address] [place] [address] ALT 8 Int._Unit/L Normal 6-46 [facility] Comment on above: Performed By: #### 2 [id number] #### [facility] [address] [place] [address] Anion gap [Moles/Vol] 11 mmol/L Normal 6-16 [facility] Comment on above: Performed By: #### 2 [id number] #### [facility] [address] [place] [address] AST 11 Int._Unit/L Normal 5-43 [facility] Comment on above: Performed By: #### 2 [id number] #### [facility] [address] [place] [address] Bili Total 0.5 mg/dL Normal 0.0-1.1 [facility] Comment on above: Performed By: #### 2 [id number] #### [facility] [address] [place] [address] BUN/Creat Ratio 17 No Units Normal 10-20 [facility] Comment on above: Performed By: #### 2 [id number] #### [facility] [address] [place] [address] Calcium [Mass/Vol] 8.8 mg/dL Low 8.9-11.1 [facility] Comment on above: Performed By: #### 2 [id number] #### [facility] [address] [place] [address] Chloride [Moles/Vol] 104 mmol/L Normal 101-111 [facility] Comment on above: Performed By: #### 2 [id number] #### [facility] [address] [place] [address] CO2 [Moles/Vol] 26 mmol/L Normal 21-31 [facility] Comment on above: Performed By: #### 2 [id number] #### [facility] [address] [place] [address] Creatinine [Mass/Vol] 1.2 mg/dL Normal 0.5-1.3 [facility] Comment on above: Performed By: #### 2 [id number] #### [facility] [address] [place] [address] Globulin (S) [Mass/Vol] 2.6 g/dL Normal 1.4-4.0 [facility] Comment on above: Performed By: #### 2 [id number] #### [facility] [address] [place] [address] Glucose [Mass/Vol] 104 mg/dL Normal 55-199 [facility] Comment on above: Performed By: #### 2 [id number] #### [facility] [address] [place] [address] Potassium [Moles/Vol] 4.2 mmol/L Normal 3.5-5.3 [facility] Comment on above: Performed By: #### 2 [id number] #### [facility] [address] [place] [address] Protein [Mass/Vol] 6.4 g/dL Normal 6.0-7.8 [facility] Comment on above: Performed By: #### 2 [id number] #### [facility] [address] [place] [address] Sodium [Moles/Vol] 137 mmol/L Normal 135-145 [facility] Comment on above: Performed By: #### 2 [id number] #### [facility] [address] [place] [address] Urea nitrogen [Mass/Vol] 20 mg/dL Normal 5-21 [facility] Comment on above: Performed By: #### 2 [id number] #### [facility] [address] [place] [address] EotK1rya 02-16-2025 HbA1c (Bld) [Mass fraction] 6.0 % High <=5.9 [facility] Comment on above: Performed By: #### 7 [id number] #### [facility] [address] [place] [address] Lipid Panelon 02-16-2025 Cholesterol [Mass/Vol] 166 mg/dL Normal 120-200 [facility] Comment on above: Performed By: #### 2 [id number] #### [facility] [address] [place] [address] Cholesterol in HDL [Mass/Vol] 35 mg/dL Invalid Interpretation Code [facility] Comment on above: Result Comment: '>= 60 LOW RISK' '<= 40 HIGH RISK' Performed By: #### 2 [id number] #### [facility] [address] [place] [address] Cholesterol in LDL [Mass/Vol] 113 mg/dL Normal <=129 [facility] Comment on above: Performed By: #### 2 [id number] #### [facility] [address] [place] [address] Cholesterol in VLDL [Mass/Vol] 24 mg/dL Normal 7-40 [facility] Comment on above: Performed By: #### 2 [id number] #### [facility] [address] [place] [address] Triglyceride [Mass/Vol] 119 mg/dL Normal <=149 [facility] Comment on above: Performed By: #### 2 [id number] #### [facility] [address] [place] [address] TSHon 02-16-2025 TSH Qn 9.04 m[IU]/L High 0.34-5.60 [facility] Comment on above: Performed By: #### 2 544165 #### [facility] [address] [place] [address] eGFRon 02-16-2025 eGFR 62 mL/min/1.73 m2 Normal >=59 [facility] Comment on above: Performed By: #### 1 [id number] #### [facility] [address] [place] [address] Ambulatory Visit Summaryon 0 02-15-2025 Ambulatory Visit [...] Appointments 2024 11:00 AM EDT With: Where: [address] [address]- Thursday 9:45 AM EDT With: MIKE VENTURA, Oni Sewell Where: [facility] [address] [place] [address]- 2025 9:30 AM EDT With: Where: [address] [address]- You Need to Complete the Following Comprehensive [...] Every day Oxygen - 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 4LPM Unchanged potassium chloride (potassium chloride 10 (more content not included)... Normal [facility] Ambulatory Visit Summary Ambulatory Visit Summary CHIKI JUAREZ :1945 Visit Date:02/15/2025 Ambulatory Visit Instructions Your Diagnosis Former smoker BMI 34.0-34.9,adult, Body mass index [BMI] 34.0-34.9, adult Class 1 obesity due to excess calories with body mass index (BMI) of 34.0 to 34.9 in adult Other obesity due to excess calories Your Care Team Attending Physician - Marlys Carcmao Primary Care Physician - Marlys Carcamo This [...] Appointments 2024 11:00 AM EDT With: Where: [address] [address]- Thursday 9:45 AM EDT With: MIKE VENTURA, Oni Sewell Where: [facility] [address] [place], [place] [id number]- 2025 9:30 AM EDT With: Where: [address] [address]- You Need to Complete the [...] Every day Oxygen - 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 4LPM Unchanged potassium chloride (potassium chloride 10 mEq Cap-ER) 1 Capsules By Mouth Every day Unchanged sodium chloride (Hyper-Flaco 3.5% inhalation solution) See instructions per neulizer BID, skip one dose with increased swelling in feet- per patient Unchan (more content not included)... Normal [facility] Noteon 02-15-2025 Family [...] of clutter to prevent tripping and/or falling. [place] Advance Directives reviewed, at home. Patient encouraged [...] patient requests, he will have completed at [facility] prior to next PCP visit. Colonoscopy screenings [...] and pulmono (more content not included)... Normal [facility] Comment on above: Result Comment: [...] on Spiriva. sees Dr. Ferro and a applied marine physics professor in [place] as well. on 4 Liter O2. annual labs ordered. he has not had any water today so he will return for nurse visit. RTC 3 months Ordered: E&M of Est. Patient Low 20-29 Min 83175 2. Back pain (M54.9: Dorsalgia, unspecified) c/o worsening back pain. spine surgeon is not willing to do surgery due to lung condition. will send refill on T3 Ordered: E&M of Est. Patient Low 20-29 Min 20611 3. Former smoker (Z87.891: Personal history of nicotine dependence) continue not smoking Ordered: E&M of Est. Patient Low 20-29 Min 86543 4. BMI 34.0-34.9,adult, (Z68.34: Body mass index [BMI] 34.0-34.9, adult)Body mass index [BMI] 34.0-34.9, adult BMI education Ordered: E&M of Est. Patient Low 20-29 Min 55574 5. Class 1 obesity due to excess calories with body mass index (BMI) of 34.0 to 34.9 in adult (E66.811: Obesity, class 1) see above Ordered: E&M of Est. Patient Low 20-29 Min 65981 Orders: 1125F Pain severity quantified; pain present [...] Handicap Placard, (more content not included)... Normal [facility] Comment on above: Result Comment: Elec tronically Signed By: Marlys Carcamo\.br\Date and Time Signed: 02/15/25 11:36 EDT No Panel Informationon 02-02 [facility] Ambulatory Visit Summaryon 0 11-24-2024 Ambulatory Visit [...] Appointments Thursday 8:00 AM EDT With: Where: [address] [address]- Thursday 9:00 AM EDT With: Pito Patterson MD Where: [address] [id number]- Thursday 9:45 AM EDT With: Oni MCKEON MD Where: [facility] [address] [place] [address]- Medications What How Much When Why Instructions [...] Every day Oxygen - 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 4LPM Contact prescribing physician if questions or concerns Unchanged potassium chloride (potassium chloride 10 mEq Cap-ER) 1 Capsules By Mouth Every day Contact prescribing physician if questions or concerns Unchanged sodium chloride (Hyper-Flaco 3.5% inhalation solution) See instructions per nirav BID, skip one dose wi (more content not included)... Normal [facility] Noteon 11-24-2024 [...] patient is also maintaining follow-ups with a applied marine physics professor for pulmonary hypertension and noted no new [...] function evaluation conducted. - Scheduled follow-up with applied marine physics professor for pulmonary hypertension. - Upcoming re-evaluation for [...] pending. Pulmonary hypertension remains stable per routine applied marine physics professor follow-ups. B-cell lymphoma continues to be ma (more content not included)... Normal [facility] Comment on above: Result Comment: Elec tronically Signed By: Navarro VENTURA, Pito Davidson\.br\Date and Time Signed: 11/24/24 13:39 EDT No Panel Informationon 11-22 [facility] PROSTATE-SPECIFIC ANTIGEN DI AGNOSTICon 11-22-2024 Prostate specific Ag [Mass/Vol] 0.24 ng/mL NINF - 2.60 ng/mL [facility] Comment on above: Total PSA test metho dology used is the Electrochemiluminescence Immunoassay by [employer]. Total PSA values by differing methodologies cannot be interchanged. Prostate specific Ag [Mass/V ol]on 11-22-2024 Interpretation and review of laboratory results Normal [facility] T4/FTI/T4Uon 11-22-2024 FTI 7 ug/dL 5.3 - 10.8 ug/dL [facility] Interpretation and review of laboratory results Abnormal [facility] T4 [Mass/Vol] 6.1 ug/dL 5.5 - 10.2 ug/dL [facility] T4 uptake [Mass/Vol] 0.87 Low 0.91 - 1.19 [facility] THYROID STIMULATING HORMONEo n 11-22-2024 TSH Qn 2.01 m[IU]/L [facility] TSH Qnon 11-22-2024 Interpretation and review of laboratory results Normal [facility] CNOVSPon 11-21-2024 CNOVS Visit (SP) Office (H EMASA) -- CHIKI JUAREZ ([id number]) 1945 M Date Time Provider Department 11/21/24 [...] influenza A infection and was hospitalized at [facility]. Apparently his symptoms were severe enough [...] Resp 24 (more content not included)... Normal [facility] PSA SerPl-mCncon 11-21-2024 Prostate specific Ag [Mass/Vol] 0.24 ng/mL Normal <2.60 [facility] Comment on above: Order Comment: Speci men Type: BLOOD SPECIMENOrdering Facility: [facility] Address: [address] [place] [address] Result Comment: Tota l PSA test methodology used is the Electrochemiluminescence Immunoassay by [employer]. Total PSA values by differing methodologies cannot be interchanged. Performed By: #### 2 [id number] ####[facility] [id number] [place] [address] [place] T4/FTI/T4Uon 11-21-2024 FTI 7.0 ug/dL Normal 5.3-10.8 [facility] Comment on above: Order Comment: Speci men Type: BLOOD SPECIMEN Ordering Facility: [facility] Address: [address] [place] [address] Performed By: #### I FESC #### [facility] CLIA [id number] [address] [place] [address] [place] T4 [Mass/Vol] 6.1 ug/dL Normal 5.5-10.2 [facility] Comment on above: Order Comment: Speci men Type: BLOOD SPECIMEN Ordering Facility: [facility] Address: [address] [place] [address] Performed By: #### I FESC #### [facility] CLIA [id number] [address] [place] [address] [place] T4 uptake [Mass/Vol] 0.87 Low 0.91-1.19 [facility] Comment on above: Order Comment: Speci men Type: BLOOD SPECIMEN Ordering Facility: [facility] Address: [address] [place] [address] Performed By: #### I FESC #### [facility] CLIA [id number] [address] [place] [address] [place] TSH SerPl-aCncon 11-21-2024 TSH Qn 2.010 m[IU]/L Normal 0.270-4.200 [facility] Comment on above: Order Comment: Speci men Type: BLOOD SPECIMEN Ordering Facility: [facility] Address: [address] [place] [address] Performed By: #### I FESC #### [facility] CLIA [id number] [address] [place] [address] [place] CBC W Auto Differential pane l (Bld)on 11-16-2024 Anisocytosis Ql (Bld) Present [facility] Basophils (Bld) [#/Vol] 0.05 10*3/uL NINF [facility] Basophils/100 WBC (Bld) 0.9 % [facility] Differential cell count method Nom (Bld) Manual [facility] Eosinophils (Bld) [#/Vol] 0.05 10*3/uL [facility] Eosinophils/100 WBC (Bld) 0.9 % [facility] Erythrocyte distribution width (RBC) [Ratio] 16.2 % High 11.5 - 15.0 % [facility] Hematocrit (Bld) [Volume fraction] 35.7 % Low 39.0 - 51.0 % [facility] Hemoglobin (Bld) [Mass/Vol] 11.5 g/dL Low 13.0 - 17.0 g/dL [facility] Interpretation and review of laboratory results Abnormal [facility] Lymphocytes (Bld) [#/Vol] 1.14 10*3/uL [facility] Lymphocytes/100 WBC (Bld) 20.5 % [facility] MCH (RBC) [Entitic mass] 34.4 pg High 26.0 - 34.0 pg [facility] MCHC (RBC) [Mass/Vol] 32.2 g/dL 30.5 - 36.0 g/dL [facility] MCV (RBC) [Entitic vol] 106.9 fL High 80.0 - 100.0 fL [facility] [place] % 2.6 % [facility] Monocytes (Bld) [#/Vol] 1.85 10*3/uL High NINF [facility] Monocytes/100 WBC (Bld) 33.3 % [facility] Myelo % 6.8 % [facility] Neutrophils (Bld) [#/Vol] 1.94 10*3/uL [facility] Neutrophils/100 WBC (Bld) 35 % [facility] Nucleated RBC (Bld) [#/Vol] NINF [facility] Nucleated RBC/100 WBC (Bld) [Ratio] 0 % /100 WBC [facility] Ovalocytes LM Ql (Bld) Few [facility] Platelet mean volume (Bld) [Entitic vol] 10.9 fL 9.0 - 12.7 fL [facility] Platelets (Bld) [#/Vol] 186 10*3/uL [facility] Platelets Estimate (Bld) [#/Vol] Adequate [facility] Polychromasia LM Ql (Bld) Slight [facility] RBC (Bld) [#/Vol] 3.34 10*6/uL Low 4.20 - 6.0 0 m/uL [facility] Red Cell Morph Reviewed: see result s of individual morphologies [facility] WBC (Bld) [#/Vol] 5.55 10*3/uL [facility] WBC Left Shift Ql (Bld) Present [facility] This is an appended report. These results have been appended to a previously verified report. [facility] PROTEIN, TOTALon 11-16-2024 Protein [Mass/Vol] 6.8 g/dL 6.3 - 8.0 g/dL [facility] Protein [Mass/Vol]on Interpretation and review of laboratory results Normal [facility] CBC W Auto Differential pane l (Bld)on 11-15-2024 Anisocytosis Ql (Bld) Present Normal [facility] Comment on above: Order Comment: Speci men Type: BLOOD SPECIMEN Ordering Facility: [facility] Address: [address] [place] [address] [place] [id number] Performed By: #### I FESC #### [facility] CLIA [id number] [address] [place] [address] [place] Basophils (Bld) [#/Vol] 0.05 10*3/uL Normal <0.11 [facility] Comment on above: Order Comment: Speci men Type: BLOOD SPECIMEN Ordering Facility: [facility] Address: [address] [place], [place] [address] Performed By: #### I FESC #### [facility] CLIA [id number] [address] [place] [address] [place] Basophils/100 WBC (Bld) 0.9 % Normal [facility] Comment on above: Order Comment: Speci men Type: BLOOD SPECIMEN Ordering Facility: [facility] Address: [address] [place] [address] Performed By: #### I FESC #### [facility] CLIA [id number] [address] [place] [address] [place] Differential cell count method Nom (Bld) Manual Normal [facility] Comment on above: Order Comment: Speci men Type: BLOOD SPECIMEN Ordering Facility: [facility] Address: [address] [place] [address] Performed By: #### I FESC #### [facility] CLIA [id number] [address] [place] [address] [place] Eosinophils (Bld) [#/Vol] 0.05 10*3/uL Normal <0.46 [facility] Comment on above: Order Comment: Speci men Type: BLOOD SPECIMEN Ordering Facility: [facility] Address: [address] [place] [address] Performed By: #### I FESC #### [facility] CLIA [id number] [address] [place] [address] [place] Eosinophils/100 WBC (Bld) 0.9 % Normal [facility] Comment on above: Order Comment: Speci men Type: BLOOD SPECIMEN Ordering Facility: [facility] Address: [address] [place] [address] Performed By: #### I FESC #### [facility] CLIA [id number] [address] [place] [address] [place] Erythrocyte distribution width (RBC) [Ratio] 16.2 % High 11.5-15.0 [facility] Comment on above: Order Comment: Speci men Type: BLOOD SPECIMEN Ordering Facility: [facility] Address: [address] [place] [address] Performed By: #### I FESC #### [facility] CLIA [id number] [address] [place] [address] [place] Hematocrit (Bld) [Volume fraction] 35.7 % Low 39.0-51.0 [facility] Comment on above: Order Comment: Speci men Type: BLOOD SPECIMEN Ordering Facility: [facility] Address: [address] [place] [address] Performed By: #### I FESC #### [facility] CLIA [id number] [address] [place] [address] [place] Hemoglobin (Bld) [Mass/Vol] 11.5 g/dL Low 13.0-17.0 [facility] Comment on above: Order Comment: Speci men Type: BLOOD SPECIMEN Ordering Facility: [facility] Address: [address] [place] [address] Performed By: #### I FESC #### [facility] CLIA [id number] [address] [place] [address] [place] Lymphocytes (Bld) [#/Vol] 1.14 10*3/uL Normal 1.00-4.00 [facility] Comment on above: Order Comment: Speci men Type: BLOOD SPECIMEN Ordering Facility: [facility] Address: [address] [place] [address] Performed By: #### I FESC #### [facility] CLIA [id number] [address] [place] [address] [place] Lymphocytes/100 WBC (Bld) 20.5 % Normal [facility] Comment on above: Order Comment: Speci men Type: BLOOD SPECIMEN Ordering Facility: [facility] Address: [address] [place] [address] Performed By: #### I FESC #### [facility] CLIA [id number] [address] [place] [address] [place] MCH (RBC) [Entitic mass] 34.4 pg High 26.0-34.0 [facility] Comment on above: Order Comment: Speci men Type: BLOOD SPECIMEN Ordering Facility: [facility] Address: [address] [place] [address] Performed By: #### I FESC #### [facility] CLIA [id number] [address] [place] [address] [place] MCHC (RBC) [Mass/Vol] 32.2 g/dL Normal 30.5-36.0 [facility] Comment on above: Order Comment: Speci men Type: BLOOD SPECIMEN Ordering Facility: [facility] Address: [address] [place] [address] Performed By: #### I FESC #### [facility] CLIA [id number] [address] [place] [address] [place] MCV (RBC) [Entitic vol] 106.9 fL High 80.0-100.0 [facility] Comment on above: Order Comment: Speci men Type: BLOOD SPECIMEN Ordering Facility: [facility] Address: [address] [place] [address] Performed By: #### I FESC #### [facility] CLIA [id number] [address] [place] [address] [place] Metamyelocytes/100 WBC (Bld) 2.6 % Normal [facility] Comment on above: Order Comment: Speci men Type: BLOOD SPECIMEN Ordering Facility: [facility] Address: [address] [id number] Performed By: #### I FESC #### [facility] CLIA [id number] [address] [place] [address] [place] Monocytes (Bld) [#/Vol] 1.85 10*3/uL High <0.87 [facility] Comment on above: Order Comment: Speci men Type: BLOOD SPECIMEN Ordering Facility: [facility] Address: [address] [place] [address] Performed By: #### I FESC #### [facility] CLIA [id number] [address] [place] [address] [place] Monocytes/100 WBC (Bld) 33.3 % Normal [facility] Comment on above: Order Comment: Speci men Type: BLOOD SPECIMEN Ordering Facility: [facility] Address: [address] [place] [address] Performed By: #### I FESC #### [facility] CLIA [id number] [address] [place] [address] [place] MYELO% 6.8 % Normal [facility] Comment on above: Order Comment: Speci men Type: BLOOD SPECIMEN Ordering Facility: [facility] Address: [address] [place] [address] Performed By: #### I FESC #### [facility] CLIA [id number] [address] [place] [address] [place] Neutrophils (Bld) [#/Vol] 1.94 10*3/uL Normal 1.45-7.50 [facility] Comment on above: Order Comment: Speci men Type: BLOOD SPECIMEN Ordering Facility: [facility] Address: [address] [place] [address] Performed By: #### I FESC #### [facility] CLIA [id number] [address] [id number] [address] [place] Neutrophils/100 WBC (Bld) 35.0 % Normal [facility] Comment on above: Order Comment: Speci men Type: BLOOD SPECIMEN Ordering Facility: [facility] Address: [address] [place] [address] Performed By: #### I FESC #### [facility] CLIA [id number] [address] [place] [address] [place] Nucleated RBC (Bld) [#/Vol] 10*3/uL Normal <0.01 [facility] Comment on above: Order Comment: Speci men Type: BLOOD SPECIMEN Ordering Facility: [facility] Address: [address] [place] [address] Performed By: #### I FESC #### [facility] CLIA [id number] [address] [place] [address] [place] Nucleated RBC/100 WBC (Bld) [Ratio] 0.0 /100 WBC Normal [facility] Comment on above: Order Comment: Speci men Type: BLOOD SPECIMEN Ordering Facility: [facility] Address: [address] [place] [address] Performed By: #### I FESC #### [facility] CLIA [id number] [address] [place] [address] [place] Ovalocytes LM Ql (Bld) Few Normal [facility] Comment on above: Order Comment: Speci men Type: BLOOD SPECIMEN Ordering Facility: [facility] Address: [address] [place] [address] Performed By: #### I FESC #### [facility] CLIA [id number] [address] [place] [address] [place] Platelet mean volume (Bld) [Entitic vol] 10.9 fL Normal 9.0-12.7 [facility] Comment on above: Order Comment: Speci men Type: BLOOD SPECIMEN Ordering Facility: [facility] Address: [address] [place] [address] Performed By: #### I FESC #### [facility] CLIA [id number] [address] [place] [address] [place] Platelets (Bld) [#/Vol] 186 10*3/uL Normal 150-400 [facility] Comment on above: Order Comment: Speci men Type: BLOOD SPECIMEN Ordering Facility: [facility] Address: [address] [place] [address] Performed By: #### I FESC #### [facility] CLIA [id number] [facility] [place] [address] [place] Platelets Estimate (Bld) [#/Vol] Adequate Normal [facility] Comment on above: Order Comment: Speci men Type: BLOOD SPECIMEN Ordering Facility: [facility] Address: [address] [place] [address] Performed By: #### I FESC #### [facility] CLIA [id number] [address] [place] [address] [place] Polychromasia LM Ql (Bld) Slight Normal [facility] Comment on above: Order Comment: Speci men Type: BLOOD SPECIMEN Ordering Facility: [facility] Address: [address] [place] [address] Performed By: #### I FESC #### [facility] CLIA [id number] [address] [place] [address] [place] RBC (Bld) [#/Vol] 3.34 10*6/uL Low 4.20-6.00 [facility] Comment on above: Order Comment: Speci men Type: BLOOD SPECIMEN Ordering Facility: [facility] Address: [address] [place] [address] Performed By: #### I FESC #### [facility] CLIA [id number] [address] [place] [address] [place] RED CELL MORPH Reviewed: see result s of individual morphologies Normal [facility] Comment on above: Order Comment: Speci men Type: BLOOD SPECIMEN Ordering Facility: [facility] Address: [address] [place] [address] Performed By: #### I FESC #### [facility] CLIA [id number] [address] [place] [address] [place] WBC (Bld) [#/Vol] 5.55 10*3/uL Normal 3.70-11.00 [facility] Comment on above: Order Comment: Speci men Type: BLOOD SPECIMEN Ordering Facility: [facility] Address: [address] [place] [address] Performed By: #### I FESC #### [facility] CLIA [id number] [address] [place] [address] [place] WBC Left Shift Ql (Bld) Present Normal [facility] Comment on above: Order Comment: Speci men Type: BLOOD SPECIMEN Ordering Facility: [facility] Address: [address] [place] [address] Performed By: #### I FESC #### [facility] CLIA [id number] [address] [place] [address] [place] CHEST W [...] abdomen: Visualized upper abdomen is grossly unremarkable. Environmental Designer (topogram) images: Unremarkable. IMPRESSION: No lymphadenopathy in [...] any questions regarding this interpretation, please call [phone]. If you are unable to reach us at the number above, please feel free to contact [facility] eRadiology at [phone]. [id number] Normal [facility] CT Chest W contrast Shantel IMPRESSION: [...] any questions regarding this interpretation, please call [phone]. If you are unable to reach us at the number above, please feel free to contact [facility]Radiology at [phone]. DIVISION OF RADIOLOGY * * *Final Report* [...] abdomen: Visualized upper abdomen is grossly unremarkable. Environmental Designer (topogram) images: Unremarkable. DIVISION OF RADIOLOGY Provider, [facility] - 11/15/2024 * * *Final Report* [...] abdomen: Visualized upper abdomen is grossly unremarkable. Environmental Designer (topogram) images: Unremarkable. IMPRESSION IMPRESSION: No lymphadenopathy [...] any questions regarding this interpretation, please call [phone]. If you are unable to reach us at the number above, please feel free to contact [facility]iology at [phone]. [facility] Radiology Study observation (narrative) [facility] CT Chest W contrast IVOrdere d By: Ccf Provider on 11-15-2024 [facility] Comp Metab 2000 Pnl SerPlon 11-15-2024 Protein [Mass/Vol] 6.8 g/dL Normal 6.3-8.0 [facility] Comment on above: Order Comment: Speci jomar Type: BLOOD SPECIMEN Ordering Facility: [facility] Address: [address] [place] [address] Performed By: #### I [facility] #### [facility] CLIA [id number] [address] [place], [place] [address] [address] [place] Order Comment: Speci men Type: BLOOD SPECIMENOrdering Facility: [facility] Address: [address] [place] [address] Performed By: #### 2 885-2 ####[facility] [id number] [place] [id number] [place] [facility] [place] Comprehensive metabolic 2000 panelOrdered By: Niki Lynn on 11-15-2024 Albumin [Mass/Vol] 3.8 g/dL Low 3.9 - 4.9 g/dL [facility] ALP [Catalytic activity/Vol] 83 U/L 38 - 113 U/L [facility] ALT [Catalytic activity/Vol] 9 U/L Low 10 - 54 U/L [facility] Anion gap [Moles/Vol] 12 mmol/L 8 - 15 mmol/L [facility] AST [Catalytic activity/Vol] 14 U/L 14 - 40 U/L [facility] Bilirubin [Mass/Vol] 0.4 mg/dL 0.2 - 1 .3 mg/dL [facility] Calcium [Mass/Vol] 9.3 mg/dL 8.5 - 10. 2 mg/dL [facility] Chloride [Moles/Vol] 104 mmol/L 98 - 10 7 mmol/L [facility] CO2 [Moles/Vol] 24 mmol/L 22 - 30 mmol/L [facility] Creatinine [Mass/Vol] 1.27 mg/dL High 0.73 - 1.22 mg/dL [facility] GFR/1.73 sq M.predicted among non-blacks MDRD (S/P/Bld) [Vol rate/Area] 58 mL/min/{1.73_m2} Low - PINF [facility] Comment on above: Estimated Glomerular Filtration [...] 110 mg/dL High 74 - 99 mg/dL [facility] Comment on above: The [place] Diab[employer] s Association (ADA) provides guidance for [...] Standards of Medical Care in Diabetes 2016, [place] [employer]. Diabetes Care. 2016.39(Suppl 1). Interpretation and review of laboratory results Abnormal [facility] Potassium [Moles/Vol] 4 mmol/L 3.7 - 5.1 mmol/L [facility] Protein [Mass/Vol] 6.8 g/dL 6.3 - 8.0 g/dL [facility] Sodium [Moles/Vol] 140 mmol/L 136 - 144 mmol/L [facility] Urea nitrogen [Mass/Vol] 21 mg/dL 9 - 24 mg/dL [facility] Comprehensive metabolic 2000 panelon 11-15-2024 Albumin [Mass/Vol] 3.8 g/dL Low 3.9-4.9 [facility] Comment on above: Order Comment: Liliya hadley Type: BLOOD SPECIMEN Ordering Facility: [facility] Address: [address] [place] [address] Performed By: #### I FESC #### [facility] CLIA [id number] [address] [place] [address] [place] ALP [Catalytic activity/Vol] 83 U/L Normal 38-113 [facility] Comment on above: Order Comment: Liliya hadley Type: BLOOD SPECIMEN Ordering Facility: [facility] Address: [address] [place] [address] Performed By: #### I FESC #### [facility] CLIA [id number] [address] [place] [address] [place] ALT [Catalytic activity/Vol] 9 U/L Low 10-54 [facility] Comment on above: Order Comment: Liliya hadley Type: BLOOD SPECIMEN Ordering Facility: [facility] Address: [address] [place] [address] Performed By: #### I FESC #### [facility] CLIA [id number] [address] [place] [address] [place] Anion gap [Moles/Vol] 12 mmol/L Normal 8-15 [facility] Comment on above: Order Comment: Speci men Type: BLOOD SPECIMEN Ordering Facility: [facility] Address: [address] [place] [address] Performed By: #### I FESC #### [facility] CLIA [id number] [address] [place] [address] [place] AST [Catalytic activity/Vol] 14 U/L Normal 14-40 [facility] Comment on above: Order Comment: Speci men Type: BLOOD SPECIMEN Ordering Facility: [facility] Address: [address] [place] [address] Performed By: #### I FESC #### [facility] CLIA [id number] [address] [place] [address] [place] Bilirubin [Mass/Vol] 0.4 mg/dL Normal 0.2-1.3 [facility] Comment on above: Order Comment: Speci men Type: BLOOD SPECIMEN Ordering Facility: [facility] Address: [address] [place] [address] Performed By: #### I FESC #### [facility] CLIA [id number] [address] [place] [address] [place] Calcium [Mass/Vol] 9.3 mg/dL Normal 8.5-10.2 [facility] Comment on above: Order Comment: Speci men Type: BLOOD SPECIMEN Ordering Facility: [facility] Address: [address] [place] [address] Performed By: #### I FESC #### [facility] CLIA [id number] [address] [place] [address] [place] Chloride [Moles/Vol] 104 mmol/L Normal 98-107 [facility] Comment on above: Order Comment: Speci men Type: BLOOD SPECIMEN Ordering Facility: [facility] Address: [address] [place] [address] Performed By: #### I FESC #### [facility] CLIA [id number] [address] [place] [address] [place] CO2 [Moles/Vol] 24 mmol/L Normal 22-30 [facility] Comment on above: Order Comment: Speci men Type: BLOOD SPECIMEN Ordering Facility: [facility] Address: [address] [place] [address] Performed By: #### I FESC #### [facility] CLIA [id number] [address] [place] [address] [place] Creatinine [Mass/Vol] 1.27 mg/dL High 0.73-1.22 [facility] Comment on above: Order Comment: Speci men Type: BLOOD SPECIMEN Ordering Facility: [facility] Address: [address] [place] [address] Performed By: #### I FESC #### [facility] CLIA [id number] [address] [place] [address] [place] Creatinine and Glomerular filtration rate.predicted panel (S/P/Bld) 58 mL/min/1.73m??? Low >=60 [facility] Comment on above: Order Comment: Speci men Type: BLOOD SPECIMEN Ordering Facility: [facility] Address: [address] [place] [address] Result Comment: Ary mated Glomerular Filtration Rate [...] GFR. Performed By: #### I FESC #### [facility] CLIA [id number] [address] [place] [address] [place] Glucose [Mass/Vol] 110 mg/dL High 74-99 [facility] Comment on above: Order Comment: Speci men Type: BLOOD SPECIMEN Ordering Facility: [facility] Address: [address] [place] [address] Result Comment: The [place] Diabetes Association (ADA) provides guidance for cutoff [...] Standards of Medical Care in Diabetes 2016, [place] Diabetes Association. Diabetes Care. 2016.39(Suppl 1). Performed By: #### I FESC #### [facility] CLIA [id number] [address] [place] [address] [place] Potassium [Moles/Vol] 4.0 mmol/L Normal 3.7-5.1 [facility] Comment on above: Order Comment: Liliya hadley Type: BLOOD SPECIMEN Ordering Facility: [facility] Address: [address] [place] [address] Performed By: #### I FESC #### [facility] CLIA [id number] [address] [place] [address] [place] Sodium [Moles/Vol] 140 mmol/L Normal 136-144 [facility] Comment on above: Order Comment: Liliya hadley Type: BLOOD SPECIMEN Ordering Facility: [facility] Address: [address] [place] [address] Performed By: #### I FESC #### [facility] CLIA [id number] [address] [place] [address] [place] Urea nitrogen [Mass/Vol] 21 mg/dL Normal 9-24 [facility] Comment on above: Order Comment: Liliya hadley Type: BLOOD SPECIMEN Ordering Facility: [facility] Address: [address] [place] [address] Performed By: #### I FESC #### [facility] CLIA [id number] [address] IMMUNOFIXATION SCREEN, SERUM on 11-15-2024 MPA RESULT No M protein is identified. Normal No M protein is identified. [facility] Comment on above: Order Comment: Speci men Type: BLOOD SPECIMENOrdering Facility: [facility] Address: [address] [place] [address] Performed By: #### I FESC ####[facility] [id number] [address] OF [facility] STAFF REVIEW (MPA) Reviewed by Xiomara powell M.D. Normal [facility] Comment on above: Order Comment: Speci men Type: BLOOD SPECIMENOrdering Facility: [facility] Address: [address] [place] [address] Performed By: #### I FESC ####[facility] [id number] [place] [id number] [place] IMMUNOGLOBULINS,IGG,IGA,IGMo n 11-15-2024 IgA [Mass/Vol] 127 mg/dL Normal 70-400 [facility] Comment on above: Order Comment: Speci men Type: BLOOD SPECIMENOrdering Facility: [facility] Address: [address] [place] [address] Performed By: #### S ERIMM ####[facility] [id number] [address], [facility] [place] IgG [Mass/Vol] 1016 mg/dL Normal 700-1600 [facility] Comment on above: Order Comment: Speci men Type: BLOOD SPECIMENOrdering Facility: [facility] Address: [address] [place] [address] Performed By: #### S ERIMM ####[facility] [id number] [place] [id number] [place] IgM [Mass/Vol] 109 mg/dL Normal 40-230 [facility] Comment on above: Order Comment: Speci men Type: BLOOD SPECIMENOrdering Facility: [facility] Address: [address] [place] [address] Performed By: #### S GIANLUCA ####[facility] [id number] [place] [address] [place] KAPPA/ARDON,FREE,SERon 2024 Immunoglobulin light chains.kappa.free (S) [Mass/Vol] 27.0 mg/L High 3.3-19.4 [facility] Comment on above: Order Comment: Speci men Type: BLOOD SPECIMEN Ordering Facility: [facility] Address: [address] [place] [address] Result Comment: Rare ly, increased serum free light chains levels may not be detected or accurately quantified due to prozone phenomenon or in high viscosity samples using this immunoturbidimetric assay. Correlation with other laboratory results and clinical findings is recommended. The [place] Free Light Chain was performed using the Binding Site Optilite immunoturbidimetric method. Result obtained with different assay methods or kits cannot be used interchangeably. Performed By: #### I FESC #### [facility] CLIA [id number] [address] [place] [address] [place] Immunoglobulin light chains.kappa/Immunog lobulin light chains.lambda (S) [Mass ratio] 1.66 High 0.26-1.65 [facility] Comment on above: Order Comment: Speci men Type: BLOOD SPECIMEN Ordering Facility: [facility] Address: [address] [place] [address] Performed By: #### I FESC #### [facility] CLIA [id number] [address] [place] [address] [place] Immunoglobulin light chains.lambda.free [Mass/Vol] 16.3 mg/L Normal 5.7-26.3 [facility] Comment on above: Order Comment: Speci men Type: BLOOD SPECIMEN Ordering Facility: [facility] Address: [address] [place] [address] Result Comment: Rare ly, increased serum free [...] interchangeably. Performed By: #### I FES #### [facility] CLIA [id number] [address] [place] [address] [place] PROTEIN ELECTROPHORESIS SERU M (P)on 11-15-2024 Albumin [Mass/Vol] 3.85 g/dL Normal 3.43-5.41 [facility] Comment on above: Order Comment: Speci men Type: BLOOD SPECIMENOrdering Facility: [facility] Address: [address] [place] [address] Performed By: #### L [id number] ####[facility]IA [id number] [place] [address] [place] Alpha 1 globulin Elph [Mass/Vol] 0.40 g/dL Normal 0.18-0.43 [facility] Comment on above: Order Comment: Speci men Type: BLOOD SPECIMENOrdering Facility: [facility] Address: [address] [place] [address] Performed By: #### L [id number] ####[facility]CLIA [id number] [place] [address] [place] Alpha 2 globulin Elph [Mass/Vol] 0.80 g/dL Normal 0.42-0.98 [facility] Comment on above: Order Comment: Speci men Type: BLOOD SPECIMENOrdering Facility: [facility] Address: [address] [place] [address] Performed By: #### L [id number] ####[facility]CLIA [id number] [place] [id number] [place] Beta globulin Elph [Mass/Vol] 0.82 g/dL Normal 0.61-1.17 [facility] Comment on above: Order Comment: Speci men Type: BLOOD SPECIMENOrdering Facility: [facility] Address: [address] [place] [address] Performed By: #### L [id number] ####[facility] [id number] [place] [address] [place] Gamma globulin Elph [Mass/Vol] 0.93 g/dL Normal 0.53-1.51 [facility] Comment on above: Order Comment: Speci men Type: BLOOD SPECIMENOrdering Facility: [facility] Address: [address] [place] [address] Performed By: #### L [id number] ####[facility]CLIA [id number] [place] [address] [place] M-PROTEIN LOCATION Normal [facility] Comment on above: Order Comment: Speci men Type: BLOOD SPECIMENOrdering Facility: [facility] Address: [address] [place] [address] Result Comment: Not Applicable. Performed By: #### L [id number] ####[facility]CLIA [id number] [place] [address] [place] Protein Fractions [Interp] No definitive M protein is identified on protein electrophoresis. Normal No definitive M protein is identified on protein electrophore sis. [facility] Comment on above: Order Comment: Speci men Type: BLOOD SPECIMENOrdering Facility: [facility] Address: [address] [place], [place] [address] Performed By: #### L [id number] ####[facility]CLIA [id number] [place] [id number] [place] Protein.monoclonal Elph [Mass/Vol] 0.00 g/dL Normal <=0.00 [facility] Comment on above: Order Comment: Speci men Type: BLOOD SPECIMENOrdering Facility: [facility] Address: [address] [place] [address] Performed By: #### L [id number] ####[facility]CLIA [id number] [address] SPE STAFF REVIEW Reviewed by Xiomara powell M.D. [facility] Comment on above: Order Comment: Speci men Type: BLOOD SPECIMENOrdering Facility: [facility] Address: [address] [place] [address] Performed By: #### L [id number] ####[facility]CLIA [id number] [place] [id number] [facility] 36on 11-07-2024 36 Regarding echo resul t from 11/04/2024: MD Mayra Wellington MA His echocardiogram shows stable findings. Follow-up as planned. Patient made aware. [facility] Office Visiton 10-21-2024 Follow-up visit [id number] Tremaine Juarez 1945 M Date Provider Department Center 10/21/2024 Laura-DANIELLA EASTON KRISTEN Pulido Family History Problem Relation Age of Onset Stroke Father Family Status - Relation Status Age at Father Level of Service:27885 [place] OFFICE/OUTPATIENT ESTABLISHED LOW MDM 20 MIN [facility] Oswaldo 10-14-2024 LIDAN Telephone (CHERRY) -- CHIKI JUAREZ ([id number]) 1945 M Date Time Provider Department 10/14/24 [...] [C83.30] Order(s):COMPREHENSIVE METABOLIC PANEL [SQCMP] Order #: [id number] FUTURE COMPLETE BLOOD COUNT AND DIFFERENTIAL [SQCBCDIF] Order #: [id number] FUTURE PROTEIN ELECTROPHORESIS SERUM W/INTERP [SQSEPG] Order #: [id number] FUTURE MONOCLONAL PROTEIN, SERUM (BLOOD) [SQSERMPA] Order #: [id number] FUTURE Prescriptions as of 10/14/2024 - TEZSPIRE [...] Encounter Status:Closed by ARABELLA MANDUJANO on 10/14/24 [facility] Ambulatory Visit Summaryon 0 08-25-2024 Ambulatory [...] EDT With: Navarro VENTURA, Pito Davidson Where: [address] [address]- Thursday 8:00 AM EDT With: Where: [address] [id number]- Thursday 9:45 AM EDT With: MIKE VENTURA, Oni Sewell Where: [facility] [address] [place] [address]- Medications What How Much When Why Instructions [...] Every day Oxygen - 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 4LPM Unchanged potassium [...] prostate cance (more content not included)... Normal [facility] Office/Clini c Noteon 08-25-2024 [...] to trialing Zyrtec for congestion relief. The applied marine physics professor, overseeing ongoing respiratory management, is scheduled for [...] disease, unspecified) Monitor exacerbation pattern and consult applied marine physics professor regarding chronic antibiotic therapy approval. Explore potential for chronic Zyrtec use for congestion relief upon applied marine physics professor's input. 4. Chronic diastolic heart failure (I50.32: [...] obstruction Card (more content not included)... Normal [facility] Comment on above: Result Comment: Elec tronically Signed By: Navarro VENTURA, Pito Davidson\.br\Date and Time Signed: 08/25/24 12:44 EST No Panel InformationOrdered By: Malou Wynne on 08-04-2024 [facility] Ambulatory Visit Summaryon 1 09-12-2023 Ambulatory Visit [...] EST With: Navarro VENTURA, Pito Davidson Where: [address] [address]- Thursday 8:00 AM EDT With: Where: [address] [id number]- Thursday 9:45 AM EDT With: MIKE VENTURA, Oni Sewell Where: [facility] [address] [place] [address]- Medications What How Much When Why Instructions [...] Every day Oxygen - 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 4LPM Unchanged potassium [...] lymphoma Histor (more content not included)... Normal [facility] Office/Clini c Noteon 07-13-2024 [...] day(s), # 6 tab(s), Refills(s) 0, Pharmacy: [facility]/pharmacy #[id number], 168, cm, 07/13/24 10:34:00 EST, Height/Length Dosing, 101.9, kg, 07/13/24 10:34:00 EST, Weight Dosing methylPREDNISolone, = 1 packet(s), Oral, As Directed, as directed on package labeling, X 6 day(s), # 21 tab(s), Refills(s) 0, Pharmacy: [facility]/pharmacy #[id number], 168, cm, 07/13/24 10:34:00 EST, Height/Length [...] qual (more content not included)... Normal [facility] Comment on above: Result Comment: Elec tronically Signed By: MARKUS CERNA CNP.otf\Date and Time Signed: 07/13/24 10:55 EST Oswaldo 06-10-2024 LIDAN Telephone (HEMASA) -- CHIKI JUAREZ ([id number]) 1945 M Date Time Provider Department 06/10/24 [...] schedule a CT for November. Shea Kolb [facility] Valerie Mayes RN 06/13/2024 9:36 AM Signed notified and transferred to [facility] to schedule CT as recommended prior to return visit with [facility] SANTI Rojas Trisha 06/13/2024 10:38 AM Signed Patient is scheduled 11/15/24 at 1:30 PM Shea Kolb [facility] Allergies As of Date: 06/10/2024 Noted Allergy Reaction SPIRONOLACTONE 09/18/2021 14 - Other: See Comments Comments: Leg cramps, Hyperkalemia Date Reviewed: 06/06/2024 Reviewed by: Yolanda Montague MA - Fully Assessed Reason for Visit: Pet results [Other] Primary Visit Diagnosis:Localized enlarged lymph nodes [R59.0] Order(s):CT CHEST W IVCON [[id number]] Order #: [id number] FUTURE [] iv contrast (will be provided [...] line spec (more content not included)... Normal [facility] CNOVSPon 06-06-2024 CNOVSP Visit (SP) Office (H EMASA) -- CHIKI JUAREZ ([id number]) 1945 M Date Time Provider Department 06/06/24 [...] Temp 3 (more content not included)... Normal [facility] 06-01-2024 L Specimen: [id number] Received: 06/01/24 Status: GABBY Giron Num: [id number] Spec Type: Surgical Subm Dr: Connor Crawley DO Tissues: A Skin-Other than Cyst, tag, debridement or plastic repair (L CHEEK LESION) B Skin-Other than Cyst, tag, debridement or plastic repair (SCALP LESION) Procedures: HE/8, Gross/Micro L4/2, FS HE/8 Age/ Patient Sex Location Account Attending Physician Chiki Juarez 79/M [place] [id number] Connor Crawley DO SPEC NUM: [id number] RECD: 06/01/24 STATUS: GABBY GIRON NUM: [id number] MARIAN: 06/01/[address]: Connor Crawley DO ENTERED: 06/01/24 [facility] DR: SPEC TYPE: Surgical DEPT: S ENTERED BY: [id number] RECV BY: [id number] ORDERED: HE/8, Gross/Micro L4/2, FS HE/8 ORDERED: [...] the correct patient's name and scalp Specimen: [id number] Received: 06/01/24 Status: GABBY Giron Num: [id number] Spec Type: Surgical Subm Dr: Connor Crawley DO Tissues: A Skin-Other than Cyst, tag, debridement or plastic repair (L CHEEK LESION) B Skin-Other than Cyst, tag, debridement or plastic repair (SCALP LESION) Procedures: HE/8, Gross/Micro L4/2, FS 8 Patient: Chiki Juarez [id number] (Continued) Specimen: [id number] Received: 06/01/24 (Continued) Gross Description (Continued) Signed (signature on file) Randy Tillman MD 06/03/24 1151 Specimen: [id number] Received: 06/01/24 Status: GABBY Giron Num: [id number] Spec Type: Surgical Subm Dr: Connor Crawley DO Tissues: A Skin-Other than Cyst, tag, debridement or plastic repair (L CHEEK LESION) B Skin-Other than Cyst, tag, debridement or plastic repair (SCALP LESION) Procedures: DHARA/, Gross/Micro L4/2, FS Patient: Chiki Juarez [id number] (Continued) Specimen: [id number] Received: 06/01/24 (Continued) Gross Description (Continued) lesion [...] Nichols CPT Codes 88 305 x 2 59375 x 2 Specimen: [id number] Received: 06/01/24 Status: GABBY Giron Num: [id number] Spec Type: Surgical Subm Dr: Connor Crawley,DO Tissues: A Skin-Other than Cyst, tag, debridement or plastic repair (L CHEEK L (more content not included)... Normal [facility] Provider Letteron 06-01-2024 Provider Letter Provider Letter June 01, 2024 CHIKI JUAREZ [address] [place] [id number] : 1945 Dear Kwaku, We have been trying to reach you with no success. It is important that you return our call regarding your mobility scooter upon receiving this letter. Also, at the time of your call, please provide us with your current information. Thank you for your prompt attention to this matter. 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 Chronic kidney disease stage 3a is managed [...] 3352F Influ (more content not included)... Normal [facility] Comment on above: Result Comment: Elec tronically Signed By: Navarro VENTURA, Pito [place]\.br\Date and Time Signed: 05/17/24 11:03 EDT Office Visiton 05-13-2024 Follow-up visit [id number] Tremaine Juarez 1945 M Date Provider Department Center 05/13/2024 DANIELLA CARDONA KRISTEN [facility] Family History Problem Relation Age of Onset Stroke Father Family Status - Relation Status Age at Father Level of Service:08258 [place] OFFICE/OUTPATIENT ESTABLISHED LOW MDM 20 MIN Normal [facility] No Panel Informationon 05-03 [facility] Type of biopsy: abernathy ential [...] taken Amount of lidocaine used: 1.0 cc [place] Type of biopsy: abernathy ential Informed consent: [...] taken Amount of lidocaine used: 1.0 cc [place] Type of biopsy: abernathy ential Informed consent: [...] taken Amount of lidocaine used: 2.0 cc Nursing Home [facility] [place] [facility] [employer] GLUCOSE, BLOOD (POC)on 04-29 Glucose [Mass/Vol] 98 mg/dL 74 - 99 mg/dL [facility] Comment on above: Location:[facility], [address] [place] [address] , [place], [place], [facility] The Accu-Chek Inform II glucose meter has [...] blood gas instrument) in the above situations. [facility] NM PET/CT SKULL-THIGH SUBQon 04-29-2024 NM PET/CT SKULL-THIGH SUBQ * * *Final Report* * * DATE OF EXAM: Apr 29 2024 3:28PM NRN 0063 - ND PET/CT SKULL-THIGH SUBQ / PROCEDURE REASON: multiple [...] * Uptake Time: 45 minutes * Radiopharmaceutical: G96-Yvalziogmpdkzdinyh (FDG) COMPARISON: No previous FDG PET/CT available [...] any questions regarding this interpretation, please call [phone]. If you are unable to reach us at the number above, please feel free to contact [facility] eRadiology at [phone]. [id number] Normal [facility] Urology Office/Clinic Noteon 04-22-2024 Urology Office/Clinic [...] [facility] [address], [place] [address] [phone] Additional Instructions: 1 yr w/ PSA Patient [...] Cap, 300 (more content not included)... Normal [facility] Comment on above: Result Comment: Elec tronically Signed By: Oni MCKEON MD\.br\Date and Time Signed: 04/22/24 10:37 EDT\.br\Electronically Co-Signed By: Nettie Wolff\.br\Date and Time Co-Signed: 04/22/24 10:36 EDT CBC W Auto Differential pane l (Bld)on 04-20-2024 Anisocytosis Ql (Bld) Present [facility] Basophils (Bld) [#/Vol] 0.00 10*3/uL NINF [facility] Basophils/100 WBC (Bld) 0.0 % [facility] Differential cell count method Nom (Bld) Manual [facility] Eosinophils (Bld) [#/Vol] 0.00 10*3/uL [facility] Eosinophils/100 WBC (Bld) 0.0 % [facility] Erythrocyte distribution width (RBC) [Ratio] 15.2 % High 11.5 - 15.0 % [facility] Hematocrit (Bld) [Volume fraction] 37.6 % Low 39.0 - 51.0 % [facility] Hemoglobin (Bld) [Mass/Vol] 12.3 g/dL Low 13.0 - 17.0 g/dL [facility] Interpretation and review of laboratory results Abnormal [facility] Lymphocytes (Bld) [#/Vol] 0.75 10*3/uL Low [facility] Lymphocytes/100 WBC (Bld) 17.0 % [facility] MCH (RBC) [Entitic mass] 34.2 pg High 26.0 - 34.0 pg [facility] MCHC (RBC) [Mass/Vol] 32.7 g/dL 30.5 - 36.0 g/dL [facility] MCV (RBC) [Entitic vol] 104.4 fL High 80.0 - 100.0 fL [facility] [place] % 1.0 % [facility] Monocytes (Bld) [#/Vol] 1.73 10*3/uL High NINF [facility] Monocytes/100 WBC (Bld) 39.0 % [facility] Neutrophils (Bld) [#/Vol] 1.91 10*3/uL [facility] Neutrophils/100 WBC (Bld) 43.0 % [facility] Nucleated RBC (Bld) [#/Vol] NINF [facility] Nucleated RBC/100 WBC (Bld) [Ratio] 0.0 % /100 WBC [facility] Ovalocytes LM Ql (Bld) Few [facility] Platelet mean volume (Bld) [Entitic vol] 10.0 fL 9.0 - 12.7 fL [facility] Platelets (Bld) [#/Vol] 136 10*3/uL Low [facility] Platelets Estimate (Bld) [#/Vol] Adequate [facility] Polychromasia LM Ql (Bld) Slight [facility] RBC (Bld) [#/Vol] 3.60 10*6/uL Low 4.20 - 6.0 0 m/uL [facility] Red Cell Morph Reviewed: see result s of individual morphologies [facility] WBC (Bld) [#/Vol] 4.44 10*3/uL [facility] WBC Left Shift Ql (Bld) Present [facility] ANC=1.55 The followi ng results were reported as preliminary values due to instrument flagging. Interpret with caution. Final results may vary.Results requested and read back by: [email or web address] @1418 9'3'24 GAY This is an appended report. These results have been appended to a previously verified report. [facility] Basic metabolic 2000 panelon 04-19-2024 Anion gap [Moles/Vol] 15 mmol/L 8 - 15 mmol/L [facility] Calcium [Mass/Vol] 9.2 mg/dL 8.5 - 10. 2 mg/dL [facility] Comment on above: Corrected result: Pr eviously reported as 9.6 mg/dL on 04/19/2024 at 2:41 PM EDT. Chloride [Moles/Vol] 105 mmol/L 98 - 10 7 mmol/L [facility] CO2 [Moles/Vol] 25 mmol/L 22 - 30 mmol/L [facility] Comment on above: Corrected result: Pr eviously reported as 27 mmol/L on 04/19/2024 at 2:41 PM EDT. Creatinine [Mass/Vol] 1.37 mg/dL High 0.73 - 1.22 mg/dL [facility] Comment on above: Corrected result: Pr eviously reported as 1.36 mg/dL on 04/19/2024 at 2:41 PM EDT. GFR/1.73 sq M.predicted among non-blacks MDRD (S/P/Bld) [Vol rate/Area] 53 mL/min/{1.73_m2} Low - PINF [facility] Comment on above: Estimated Glomerular Filtration [...] 120 mg/dL High 74 - 99 mg/dL [facility] Comment on above: The [place] Diabete s Association (ADA) provides guidance for [...] Standards of Medical Care in Diabetes 2016, [place] Diabetes Association. Diabetes Care. 2016.39(Suppl 1). Corrected result: Previously reported as 126 mg/dL on 04/19/2024 at 2:41 PM EDT. Interpretation and review of laboratory results Abnormal [facility] Potassium [Moles/Vol] 4.4 mmol/L 3.7 - 5.1 mmol/L [facility] Sodium [Moles/Vol] 145 mmol/L High 136 - 144 mmol/L [facility] Urea nitrogen [Mass/Vol] 20 mg/dL 9 - 24 mg/dL [facility] Comment on above: Corrected result: Pr eviously reported as 21 mg/dL on 04/19/2024 at 2:41 PM EDT. [facility] Anion gap [Moles/Vol] 15 mmol/L Normal 8-15 [facility] Comment on above: Order Comment: Speci men Type: BLOOD SPECIMENOrdering Facility: [facility] Address: [address] [place] [address] Performed By: #### 2 4321-2 ####[facility] LABIA [id number] [place] [address] [place] Calcium [Mass/Vol] 9.2 mg/dL Normal 8.5-10.2 [facility] Comment on above: Order Comment: Speci men Type: BLOOD SPECIMENOrdering Facility: [facility] Address: [address] [place] [address] Result Comment: Enmanuel ected result: Previously reported as 9.6 mg/dL on 04/19/2024 at 2:41 PM EDT. Performed By: #### 2 4321-2 ####[facility] LABCLIA [id number] [place] [address] [place] Chloride [Moles/Vol] 105 mmol/L Normal 98-107 [facility] Comment on above: Order Comment: Speci men Type: BLOOD SPECIMENOrdering Facility: [facility] Address: [address] [place] [address] Performed By: #### 2 4321-2 ####[facility] LABIA [id number] [place] [address] [place] CO2 [Moles/Vol] 25 mmol/L Normal 22-30 [facility] Comment on above: Order Comment: Speci men Type: BLOOD SPECIMENOrdering Facility: [facility] Address: [address] [place] [address] Result Comment: Enmanuel ected result: Previously reported as 27 mmol/L on 04/19/2024 at 2:41 PM EDT. Performed By: #### 2 4321-2 ####[facility] LABCLIA [id number] [place] [address] [place] Creatinine [Mass/Vol] 1.37 mg/dL High 0.73-1.22 [facility] Comment on above: Order Comment: Speci men Type: BLOOD SPECIMENOrdering Facility: [facility] Address: [address] [place] [address] Result Comment: Enmanuel ected result: Previously reported as 1.36 mg/dL on 04/19/2024 at 2:41 PM EDT. Performed By: #### 2 4321-2 ####[facility] LABIA [id number] [place] [address] [place] Creatinine and Glomerular filtration rate.predicted panel (S/P/Bld) 53 mL/min/1.73m??? Low >=60 [facility] Comment on above: Order Comment: Speci men Type: BLOOD SPECIMENOrdering Facility: [facility] Address: [address] [place] [address] Result Comment: Ary mated Glomerular Filtration Rate [...] PM EDT. Performed By: #### 2 4321-2 ####[facility] LABIA [id number] [place] [address] [place] Glucose [Mass/Vol] 120 mg/dL High 74-99 [facility] Comment on above: Order Comment: Speci men Type: BLOOD SPECIMENOrdering Facility: [facility] Address: [address] [place] [address] Result Comment: The [place] Diabetes Association (ADA) provides guidance for cutoff [...] Standards of Medical Care in Diabetes 2016, [place] Diabetes Association. Diabetes Care. 2016.39(Suppl 1). Corrected result: Previously reported as 126 mg/dL on 04/19/2024 at 2:41 PM EDT. Performed By: #### 2 4321-2 ####[facility] LABIA [id number] [place] [address] [place] Potassium [Moles/Vol] 4.4 mmol/L Normal 3.7-5.1 [facility] Comment on above: Order Comment: Speci men Type: BLOOD SPECIMENOrdering Facility: [facility] Address: [address] [place] [address] Performed By: #### 2 4321-2 ####[facility] LABIA [id number] [place] [address] [place] Sodium [Moles/Vol] 145 mmol/L High 136-144 [facility] Comment on above: Order Comment: Speci men Type: BLOOD SPECIMENOrdering Facility: [facility] Address: [address] [place] [address] Performed By: #### 2 4321-2 ####[facility] LABIA [id number] [place] [address] [place] Urea nitrogen [Mass/Vol] 20 mg/dL Normal 9-24 [facility] Comment on above: Order Comment: Speci men Type: BLOOD SPECIMENOrdering Facility: [facility] Address: [address] [place] [address] Result Comment: Enmanuel ected result: Previously reported as 21 mg/dL on 04/19/2024 at 2:41 PM EDT. Performed By: #### 2 4321-2 ####[facility] LABCLIA [id number] [place] [address] [place] CBC W Auto Differential pane l (Bld)on 04-19-2024 Anisocytosis Ql (Bld) Present Normal [facility] Comment on above: Order Comment: Speci men Type: BLOOD SPECIMENOrdering Facility: [facility] Address: [address] [place] [address] Performed By: #### 5 7021-8 ####[facility] LABCLIA [id number] [address] LABCLIA [id number] [place] [address] [place] Basophils (Bld) [#/Vol] 0.00 10*3/uL Normal <0.11 [facility] Comment on above: Order Comment: Speci men Type: BLOOD SPECIMENOrdering Facility: [facility] Address: [address] [place] [address] Performed By: #### 5 7021-8 ####[facility] LABCLIA [id number] [address] LABCLIA [id number] [place] [address] [place] Basophils/100 WBC (Bld) 0.0 % Normal [facility] Comment on above: Order Comment: Speci men Type: BLOOD SPECIMENOrdering Facility: [facility] Address: [address] [place] [address] Performed By: #### 5 7021-8 ####[facility] LABCLIA [id number] [address] LABCLIA [id number] [place] [address] [place] Differential cell count method Nom (Bld) Manual Normal [facility] Comment on above: Order Comment: Speci men Type: BLOOD SPECIMENOrdering Facility: [facility] Address: [address] [place] [address] Performed By: #### 5 7021-8 ####[facility] LABCLIA [id number] [address] LABCLIA [id number] [place] [address] [place] Eosinophils (Bld) [#/Vol] 0.00 10*3/uL Normal <0.46 [facility] Comment on above: Order Comment: Speci men Type: BLOOD SPECIMENOrdering Facility: [facility] Address: [address] [place] [address] Performed By: #### 5 7021-8 ####[facility] LABCLIA [id number] [address] LABCLIA [id number] [place] [address] [place] Eosinophils/100 WBC (Bld) 0.0 % Normal [facility] Comment on above: Order Comment: Speci men Type: BLOOD SPECIMENOrdering Facility: [facility] Address: [address] [place] [address] Performed By: #### 5 7021-8 ####[facility] LABCLIA [id number] [address] LABCLIA [id number] [place] [address] [place] Erythrocyte distribution width (RBC) [Ratio] 15.2 % High 11.5-15.0 [facility] Comment on above: Order Comment: Speci men Type: BLOOD SPECIMENOrdering Facility: [facility] Address: [address] [place] [address] Performed By: #### 5 7021-8 ####[facility] LABCLIA [id number] [place] [id number] LABCLIA [id number] [place] [address] [place] Hematocrit (Bld) [Volume fraction] 37.6 % Low 39.0-51.0 [facility] Comment on above: Order Comment: Speci men Type: BLOOD SPECIMENOrdering Facility: [facility] Address: [address] [place] [address] Performed By: #### 5 7021-8 ####[facility] LABCLIA [id number] [address] LABCLIA [id number] [place] [address] [place] Hemoglobin (Bld) [Mass/Vol] 12.3 g/dL Low 13.0-17.0 [facility] Comment on above: Order Comment: Speci men Type: BLOOD SPECIMENOrdering Facility: [facility] Address: [address] [place] [address] Performed By: #### 5 7021-8 ####[facility] LABCLIA [id number] [address] LABCLIA [id number] [place] [address] [place] Lymphocytes (Bld) [#/Vol] 0.75 10*3/uL Low 1.00-4.00 [facility] Comment on above: Order Comment: Speci men Type: BLOOD SPECIMENOrdering Facility: [facility] Address: [address] [place] [address] Performed By: #### 5 7021-8 ####[facility] LABCLIA [id number] [address] LABCLIA [id number] [place] [address] [place] Lymphocytes/100 WBC (Bld) 17.0 % Normal [facility] Comment on above: Order Comment: Speci men Type: BLOOD SPECIMENOrdering Facility: [facility] Address: [address] [place] [address] Performed By: #### 5 7021-8 ####[facility] LABCLIA [id number] [address] LABCLIA [id number] [place] [address] [place] MCH (RBC) [Entitic mass] 34.2 pg High 26.0-34.0 [facility] Comment on above: Order Comment: Speci men Type: BLOOD SPECIMENOrdering Facility: [facility] Address: [address] [place] [address] Performed By: #### 5 7021-8 ####[facility] LABCLIA [id number] [address] LABCLIA [id number] [place] [address] [place] MCHC (RBC) [Mass/Vol] 32.7 g/dL Normal 30.5-36.0 [facility] Comment on above: Order Comment: Speci men Type: BLOOD SPECIMENOrdering Facility: [facility] Address: [address] [place] [address] Performed By: #### 5 7021-8 ####[facility] LABCLIA [id number] [address] LABCLIA [id number] [place] [address] [place] MCV (RBC) [Entitic vol] 104.4 fL High 80.0-100.0 [facility] Comment on above: Order Comment: Speci men Type: BLOOD SPECIMENOrdering Facility: [facility] Address: [address] [place] [address] Performed By: #### 5 7021-8 ####[facility] LABCLIA [id number] [place] [id number] LABCLIA [id number] [place] [address] [place] Metamyelocytes/100 WBC (Bld) 1.0 % Normal [facility] Comment on above: Order Comment: Speci men Type: BLOOD SPECIMENOrdering Facility: [facility] Address: [address] [place] [address] Performed By: #### 5 7021-8 ####[facility] LABCLIA [id number] [address] LABCLIA [id number] [place] [address] [place] Monocytes (Bld) [#/Vol] 1.73 10*3/uL High <0.87 [facility] Comment on above: Order Comment: Speci men Type: BLOOD SPECIMENOrdering Facility: [facility] Address: [address] [place] [address] Performed By: #### 5 7021-8 ####[facility] LABCLIA [id number] [address] LABCLIA [id number] [place] [address] [place] Monocytes/100 WBC (Bld) 39.0 % Normal [facility] Comment on above: Order Comment: Speci men Type: BLOOD SPECIMENOrdering Facility: [facility] Address: [address] [place] [address] Performed By: #### 5 7021-8 ####[facility] LABCLIA [id number] [address] LABCLIA [id number] [place] [address] [place] Neutrophils (Bld) [#/Vol] 1.91 10*3/uL Normal 1.45-7.50 [facility] Comment on above: Order Comment: Speci men Type: BLOOD SPECIMENOrdering Facility: [facility] Address: [address] [place] [address] Performed By: #### 5 7021-8 ####ABDIRAHMAN [facility] LABCLIA [id number] [address] LABCLIA [id number] [place] [address] [place] Neutrophils/100 WBC (Bld) 43.0 % Normal [facility] Comment on above: Order Comment: Speci men Type: BLOOD SPECIMENOrdering Facility: [facility] Address: [address] [place] [address] Performed By: #### 5 7021-8 ####OLYMPIASOURAV [facility] LABCLIA [id number] [address] LABCLIA [id number] [place] [address] [place] Nucleated RBC (Bld) [#/Vol] 10*3/uL Normal <0.01 [facility] Comment on above: Order Comment: Speci men Type: BLOOD SPECIMENOrdering Facility: [facility] Address: [address] [place] [address] Performed By: #### 5 7021-8 ####[facility]ENTER[facility]OS[facility] ANTONIO [facility] LABCLIA [id number] [address] LABCLIA [id number] [place] [address] [place] Nucleated RBC/100 WBC (Bld) [Ratio] 0.0 /100 WBC Normal [facility] Comment on above: Order Comment: Speci men Type: BLOOD SPECIMENOrdering Facility: [facility] Address: [address] [place] [address] Performed By: #### 5 7021-8 ####[facility]ENTER[facility] ANTONIO [facility] LABCLIA [id number] [address] LABCLIA [id number] [place] [id number] [place] Ovalocytes LM Ql (Bld) Few Normal [facility] Comment on above: Order Comment: Speci men Type: BLOOD SPECIMENOrdering Facility: [facility] Address: [address] [place] [address] Performed By: #### 5 7021-8 ####[facility] LABCLIA [id number] [address] LABCLIA [id number] [place] [address] [place] Platelet mean volume (Bld) [Entitic vol] 10.0 fL Normal 9.0-12.7 [facility] Comment on above: Order Comment: Speci men Type: BLOOD SPECIMENOrdering Facility: [facility] Address: [address] [place] [address] Performed By: #### 5 7021-8 ####[facility] LABCLIA [id number] [address] LABCLIA [id number] [place] [address] [place] Platelets (Bld) [#/Vol] 136 10*3/uL Low 150-400 [facility] Comment on above: Order Comment: Speci men Type: BLOOD SPECIMENOrdering Facility: [facility] Address: [address] [place] [address] Performed By: #### 5 7021-8 ####[facility] LABCLIA [id number] [address] LABCLIA [id number] [place] [address] [place] Platelets Estimate (Bld) [#/Vol] Adequate Normal [facility] Comment on above: Order Comment: Speci men Type: BLOOD SPECIMENOrdering Facility: [facility] Address: [address] [place], [place] [address] Performed By: #### 5 7021-8 ####[facility] LABCLIA [id number] [address] LABCLIA [id number] [place] [address] [place] Polychromasia LM Ql (Bld) Slight Normal [facility] Comment on above: Order Comment: Speci men Type: BLOOD SPECIMENOrdering Facility: [facility] Address: [address] [place] [address] Performed By: #### 5 7021-8 ####[facility] LABCLIA [id number] [address] LABCLIA [id number] [place] [address] [place] RBC (Bld) [#/Vol] 3.60 10*6/uL Low 4.20-6.00 [facility] Comment on above: Order Comment: Speci men Type: BLOOD SPECIMENOrdering Facility: [facility] Address: [address] [place] [address] Performed By: #### 5 7021-8 ####[facility] LABCLIA [id number] [address] LABCLIA [id number] [place] [address] [place] RED CELL MORPH Reviewed: see result s of individual morphologies Normal [facility] Comment on above: Order Comment: Speci men Type: BLOOD SPECIMENOrdering Facility: [facility] Address: [address] [place] [address] Performed By: #### 5 7021-8 ####[facility] LABCLIA [id number] [address] LABCLIA [id number] [place] [address] [place] WBC (Bld) [#/Vol] 4.44 10*3/uL Normal 3.70-11.00 [facility] Comment on above: Order Comment: Speci men Type: BLOOD SPECIMENOrdering Facility: [facility] Address: [address] [place] [address] Performed By: #### 5 7021-8 ####[facility] LABCLIA [id number] [address] LABIA [id number] [place] [address] [place] WBC Left Shift Ql (Bld) Present Normal [facility] Comment on above: Order Comment: Speci men Type: BLOOD SPECIMENOrdering Facility: [facility] Address: [address] [place] [address] Performed By: #### 5 7021-8 ####[facility] LABCLIA [id number] [address] LABCLIA [id number] [address] [place] CNOVSPon 04-19-2024 CNOVSP Visit (SP) Office (H EMASA) -- CHIKI JUAREZ ([id number]) 1945 M Date Time Provider Department 04/19/24 [...] visit here 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[facility] for his chronic [...] Acute maxillary sinusitis No date: Cancer ([facility]) Comment: Lymphoma 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 Normal [facility] CH[facility] ([id number]) 1945 M Date Time Provider Department 04/19/24 [facility] During your visit today, we recorded the following information about you: Mechelle Allred 04/19/2024 3:08 PM Signed Please ref patient to [facility] Dermatology. Dx Skin Lesion blaise facial area. Their office to call the patient to schedule/ Rhona, Please fax records Julius, Please follow up on this appt. Jennie Ye 04/20/2024 9:34 AM Signed Rhona: Information ready for you. Su Hodges 04/20/2024 10:41 AM Signed Records faxed to [facility] Dermatology. Su Pickett 04/26/2024 10:35 [...] Status:Closed by SHERON METCALF on 04/26/24 Normal [facility] IMMUNOFIXATION SCREEN, SERUM on 04-19-2024 INTERPRETATION (MPA) Atypical restricted bands are present in the IgG and lambda regions. Consistent with IgG lambda monoclonal gammopathy. Normal [facility] Comment on above: Order Comment: Speci men Type: BLOOD SPECIMENOrdering Facility: [facility] Address: [address] [place] [address] Performed By: #### I FESC ####[facility] LABIA [id number] [address] [place] MPA RESULT M protein is present. Abnormal No M p rotein is identified. [facility] Comment on above: Order Comment: Speci men Type: BLOOD SPECIMENOrdering Facility: [facility] Address: [address] [place] [address] Performed By: #### I FESC ####[facility] LABIA [id number] [address] [place] STAFF REVIEW (RUST) Reviewed by Alison Langford MD Normal [facility] Comment on above: Order Comment: Speci men Type: BLOOD SPECIMENOrdering Facility: [facility] Address: [address] [place] [address] Performed By: #### I FESC ####[facility] LABCLIA [id number] [place] [id number] [place] IMMUNOGLOBULINS,IGG,IGA,IGMo n 04-19-2024 IgA [Mass/Vol] 124 mg/dL Normal 70-400 [facility] Comment on above: Order Comment: Sonyi men Type: BLOOD SPECIMENOrdering Facility: [facility] Address: [address] [place] [address] Performed By: #### S ERIMM ####[facility] LABCLIA [id number] [place] [address] [place] IgG [Mass/Vol] 1147 mg/dL Normal 700-1600 [facility] Comment on above: Order Comment: Speci men Type: BLOOD SPECIMENOrdering Facility: [facility] Address: [address] [place] [address] Performed By: #### S ERIMM ####[facility] LABCLIA [id number] [place] [address] [place] IgM [Mass/Vol] 75 mg/dL Normal 40-230 [facility] Comment on above: Order Comment: Speci men Type: BLOOD SPECIMENOrdering Facility: [facility] Address: [address] [place] [address] Performed By: #### S ERIMM ####[facility] LABCLIA [id number] [place] [address] [place] KAPPA/ARDON,FREE,SERon 2023 Immunoglobulin light chains.kappa.free (S) [Mass/Vol] 34.6 mg/L High 3.3-19.4 [facility] Comment on above: Order Comment: Speci men Type: BLOOD SPECIMEN [facility] Address: [address] [place] [address] Result Comment: Rare ly, increased serum free light chains levels may not be detected or accurately quantified due to prozone phenomenon or in high viscosity samples using this immunoturbidimetric assay. Correlation with other laboratory results and clinical findings is recommended. The [place] Free Light Chain was performed using the Binding Site Optilite immunoturbidimetric method. Result obtained with different assay methods or kits cannot be used interchangeably. Performed By: #### I FESC #### [facility] CLIA [id number] [address] [place] [address] [place] Immunoglobulin light chains.kappa/Immunog lobulin light chains.lambda (S) [Mass ratio] 1.90 High 0.26-1.65 [facility] Comment on above: Order Comment: Speci men Type: BLOOD SPECIMEN [facility] Address: [address] [place] [address] Performed By: #### I FESC #### [facility] CLIA [id number] [address] [place] [address] [place] Immunoglobulin light chains.lambda.free [Mass/Vol] 18.2 mg/L Normal 5.7-26.3 [facility] Comment on above: Order Comment: Speci men Type: BLOOD SPECIMEN [facility] Address: [address] [place] [address] Result Comment: Rare ly, increased serum free [...] interchangeably. Performed By: #### I FES #### [facility] CLIA [id number] [address] [place] [address] [place] PROTEIN ELECTROPHORESIS SERU M WITH CARSON (P)on 04-19-2024 Albumin [Mass/Vol] 3.82 g/dL Normal 3.43-5.41 [facility] Comment on above: Order Comment: Speci men Type: BLOOD SPECIMENOrdering Facility: [facility] Address: [address] [place] [address] Performed By: #### L [id number] ####[facility] LABCLIA [id number] [place] [address] [place] Alpha 1 globulin Elph [Mass/Vol] 0.33 g/dL Normal 0.18-0.43 [facility] Comment on above: Order Comment: Speci men Type: BLOOD SPECIMENOrdering Facility: [facility] Address: [address] [place] [address] Performed By: #### L [id number] ####[facility] LABCLIA [id number] [address] [place] Alpha 2 globulin Elph [Mass/Vol] 0.69 g/dL Normal 0.42-0.98 [facility] Comment on above: Order Comment: Speci men Type: BLOOD SPECIMENOrdering Facility: [facility] Address: [address] [place] [address] Performed By: #### L [id number] ####[facility] LABCLIA [id number] [address] [place] Beta globulin Elph [Mass/Vol] 0.80 g/dL Normal 0.61-1.17 [facility] Comment on above: Order Comment: Speci men Type: BLOOD SPECIMENOrdering Facility: [facility] Address: [address] [place] [address] Performed By: #### L [id number] ####[facility] LABIA [id number] [address] STATES OF [facility] COMMENT (SERUM PROT ELECTRO) Monoclonal Protein analysis (immunofixation) is not indicated. Normal [facility] Comment on above: Order Comment: Speci men Type: BLOOD SPECIMENOrdering Facility: [facility] Address: [address] [place] [address] Performed By: #### L [id number] ####[facility] LABCLIA [id number] [address] [place] Gamma globulin Elph [Mass/Vol] 0.95 g/dL Normal 0.53-1.51 [facility] Comment on above: Order Comment: Speci men Type: BLOOD SPECIMENOrdering Facility: [facility] Address: [address] [place] [address] Performed By: #### L [id number] ####[facility] LABCLIA [id number] [address] [place] INTERPRETATION COMMENT FOR PROTEIN ELECTROPHORESIS The atypical region is relatively poorly defined and may represent an unusual presentation of polyclonal immunoglobulins, but cannot rule out the presence of a low level M protein. If clinically indicated, monoclonal protein analysis and serum free light chain analysis are suggested to evaluate further for monoclonal gammopathy. Normal [facility] Comment on above: Order Comment: Speci men Type: BLOOD SPECIMENOrdering Facility: [facility] Address: [address] [place] [address] Performed By: #### L [id number] ####[facility] LABCLIA [id number] [place] [address] [place] M-PROTEIN LOCATION Normal [facility] Comment on above: Order Comment: Speci men Type: BLOOD SPECIMENOrdering Facility: [facility] Address: [address] [place] [address] Result Comment: Not Applicable. Performed By: #### L [id number] ####[facility] LABCLIA [id number] [place] [address] [place] Protein Fractions [Interp] An atypical region of restricted mobility is identified on protein electrophoresis. Abnormal No definitive M protein is identified on protein electrophore sis. [facility] Comment on above: Order Comment: Speci men Type: BLOOD SPECIMENOrdering Facility: [facility] Address: [address] [place] [address] Performed By: #### L [id number] ####[facility] LABCLIA [id number] [place] [id number] [place] Protein.monoclonal Elph [Mass/Vol] 0.00 g/dL Normal <=0.00 [facility] Comment on above: Order Comment: Speci men Type: BLOOD SPECIMENOrdering Facility: [facility] Address: [address] [place], [place] [address] Performed By: #### L [id number] ####[facility] LABCLIA [id number] [place] [id number] [place] SPE STAFF REVIEW Reviewed by Alison Langford MD Normal [facility] Comment on above: Order Comment: Speci men Type: BLOOD SPECIMENOrdering Facility: [facility] Address: [address] [place] [address] Performed By: #### L [id number] ####[facility] LABCLIA [id number] [place] [address] [place] Prot SerPl-mCncon 04-19-2024 Protein [Mass/Vol] 6.6 g/dL Normal 6.3-8.0 [facility] Comment on above: Order Comment: Speci men Type: BLOOD SPECIMENOrdering Facility: [facility] Address: [address] [place] [address] Performed By: #### 2 885-2 ####[facility] LABCLIA [id number] [place] [address] [place] Reminderson 03-03-2024 Reminders Reminders From: Solange Broussard To: EU - Recalls Mckeon; Sent: 06/09/2023 16:03:24 EDT Show up: 01/16/2024 16:03:00 EDT Subject: renal US Due Date/Time: 02/01/2024 16:03:00 EDT Reminder/Recall Patient needs renal US prior to February 2024 appt f/u scheduled 03/14/24 LM on pt's VM notifying him that order for ZAMZAM has been faxed to [facility]. They should be reaching out to get him scheduled. If he does not hear from them w/in 1wk he is to call our office. F/U schedule dw/PRW 03/14/24 to review results. ZAMZAM scheduled 03/03/24. F/U schedule dw/PRW 03/14/24 to review results. Completed Normal [facility] Oswaldo 02-02-2024 [facility] Telephone (DONITA) -- ALTHEACHIKI HERNANDEZ ([id number]) 1945 M Date Time Provider Department 02/02/24 [...] Status:Closed by VALERIE MAYES on 02/02/24 Normal [facility] Basic metabolic 2000 panelon 01-21-2024 Anion gap [Moles/Vol] 7 mmol/L Low 8-15 [facility] Comment on above: Order Comment: Speci men Type: BLOOD SPECIMENOrdering Facility: [facility] Address: [address] [place] [address] [place] [address] Performed By: #### 2 4321-2 ####[facility] LABCLIA [id number] [place] [address] Calcium [Mass/Vol] 9.3 mg/dL Normal 8.5-10.2 [facility] Comment on above: Order Comment: Speci men Type: BLOOD SPECIMENOrdering Facility: [facility] Address: [address] [place] [address] Performed By: #### 2 4321-2 ####[facility] LABCLIA [id number] [place] [address] Chloride [Moles/Vol] 109 mmol/L High 98-107 [facility] Comment on above: Order Comment: Speci men Type: BLOOD SPECIMENOrdering Facility: [facility] Address: [address] [place] [address] Performed By: #### 2 4321-2 ####[facility] LABCLIA [id number] [place] [address] CO2 [Moles/Vol] 26 mmol/L Normal 22-30 [facility] Comment on above: Order Comment: Speci men Type: BLOOD SPECIMENOrdering Facility: [facility] Address: [address] [place] [address] Performed By: #### 2 4321-2 ####[facility] LABCLIA [id number] [place] [address] Creatinine [Mass/Vol] 1.31 mg/dL High 0.73-1.22 [facility] Comment on above: Order Comment: Speci men Type: BLOOD SPECIMENOrdering Facility: [facility] Address: [address] [place] [address] Performed By: #### 2 4321-2 ####[facility] LABCLIA [id number] [place] [address] Creatinine and Glomerular filtration rate.predicted panel (S/P/Bld) 56 mL/min/1.73m??? Low >=60 [facility] Comment on above: Order Comment: Speci men Type: BLOOD SPECIMENOrdering Facility: [facility] Address: [address] [id number] Result Comment: Ary mated Glomerular Filtration Rate [...] Performed By: #### 2 4321-2 ####[facility] LABCLIA [id number] [place] [address] Glucose [Mass/Vol] 121 mg/dL High 74-99 [facility] Comment on above: Order Comment: Liliya hadley Type: BLOOD SPECIMENOrdering Facility: [facility] Address: [address] [place] [address] Result Comment: The [place] Diabetes Association (ADA) provides guidance for cutoff [...] Standards of Medical Care in Diabetes 2016, [place] Diabetes [employer]. Diabetes Care. 2016.39(Suppl 1). Performed By: #### 2 4321-2 ####[facility] LABCLIA [id number] [place] [address] Potassium [Moles/Vol] 4.1 mmol/L Normal 3.7-5.1 [facility] Comment on above: Order Comment: Liliya hadley Type: BLOOD SPECIMENOrdering Facility: [facility] Address: [address] [id number] Performed By: #### 2 4321-2 ####[facility] LABCLIA [id number] [place] [address] Sodium [Moles/Vol] 142 mmol/L Normal 136-144 [facility] Comment on above: Order Comment: Speci men Type: BLOOD SPECIMENOrdering Facility: [facility] Address: [address] [place] [address] Performed By: #### 2 4321-2 ####[facility] LABCLIA [id number] [place] [address] Urea nitrogen [Mass/Vol] 17 mg/dL Normal 9-24 [facility] Comment on above: Order Comment: Speci men Type: BLOOD SPECIMENOrdering Facility: [facility] Address: [address] [place] [address] Performed By: #### 2 4321-2 ####[facility] LABCLIA [id number] [place] [address] CBC W Auto Differential pane l (Bld)on 01-21-2024 Basophils (Bld) [#/Vol] 10*3/uL Normal <0.11 [facility] Comment on above: Order Comment: Speci men Type: BLOOD SPECIMENOrdering Facility: [facility] Address: [address] [place] [address] Performed By: #### 5 7021-8 ####[facility] LABCLIA [id number] [place] [address] Basophils/100 WBC (Bld) 0.3 % Normal [facility] Comment on above: Order Comment: Speci men Type: BLOOD SPECIMENOrdering Facility: [facility] Address: [address] [place] [address] Performed By: #### 5 7021-8 ####[facility] LABCLIA [id number] [place] [address] Differential cell count method Nom (Bld) Auto Normal [facility] Comment on above: Order Comment: Speci men Type: BLOOD SPECIMENOrdering Facility: [facility] Address: [address] [place] [address] Performed By: #### 5 7021-8 ####[facility] LABCLIA [id number] [place] [address] Eosinophils (Bld) [#/Vol] 10*3/uL Normal <0.46 [facility] Comment on above: Order Comment: Speci men Type: BLOOD SPECIMENOrdering Facility: [facility] Address: [address] [place] [address] Performed By: #### 5 7021-8 ####[facility] LABCLIA [id number] [place] [address] Eosinophils/100 WBC (Bld) 0.3 % Normal [facility] Comment on above: Order Comment: Speci men Type: BLOOD SPECIMENOrdering Facility: [facility] Address: [address] [place] [address] Performed By: #### 5 7021-8 ####[facility] LABCLIA [id number] [place] [address] Erythrocyte distribution width (RBC) [Ratio] 14.6 % Normal 11.5-15.0 [facility] Comment on above: Order Comment: Speci men Type: BLOOD SPECIMENOrdering Facility: [facility] Address: [address] [place] [address] Performed By: #### 5 7021-8 ####[facility] LABCLIA [id number] [place] [address] Hematocrit (Bld) [Volume fraction] 35.7 % Low 39.0-51.0 [facility] Comment on above: Order Comment: Speci men Type: BLOOD SPECIMENOrdering Facility: [facility] Address: [address] [place] [address] Performed By: #### 5 7021-8 ####[facility] LABCLIA [id number] [place] [address] Hemoglobin (Bld) [Mass/Vol] 11.4 g/dL Low 13.0-17.0 [facility] Comment on above: Order Comment: Speci men Type: BLOOD SPECIMENOrdering Facility: [facility] Address: [address] [place] [address] Performed By: #### 5 7021-8 ####[facility] LABCLIA [id number] [place] [address] Immature granulocytes (Bld) [#/Vol] 0.08 10*3/uL Normal <0.10 [facility] Comment on above: Order Comment: Speci men Type: BLOOD SPECIMENOrdering Facility: [facility] Address: [address] [place] [address] Performed By: #### 5 7021-8 ####[facility] LABCLIA [id number] [place] [address] Immature granulocytes/100 WBC (Bld) 2.2 % Normal [facility] Comment on above: Order Comment: Speci men Type: BLOOD SPECIMENOrdering Facility: [facility] Address: [address] [place] [address] Performed By: #### 5 7021-8 ####[facility] LABCLIA [id number] [place] [address] Lymphocytes (Bld) [#/Vol] 0.92 10*3/uL Low 1.00-4.00 [facility] Comment on above: Order Comment: Speci men Type: BLOOD SPECIMENOrdering Facility: [facility] Address: [address] [place] [address] Performed By: #### 5 7021-8 ####[facility] LABCLIA [id number] [place] [address] Lymphocytes/100 WBC (Bld) 25.2 % Normal [facility] Comment on above: Order Comment: Speci men Type: BLOOD SPECIMENOrdering Facility: [facility] Address: [address] [place] [address] Performed By: #### 5 7021-8 ####[facility] LABCLIA [id number] [place] [address] MCH (RBC) [Entitic mass] 33.8 pg Normal 26.0-34.0 [facility] Comment on above: Order Comment: Speci men Type: BLOOD SPECIMENOrdering Facility: [facility] Address: [address] [place] [address] Performed By: #### 5 7021-8 ####[facility] LABCLIA [id number] [place] [address] MCHC (RBC) [Mass/Vol] 31.9 g/dL Normal 30.5-36.0 [facility] Comment on above: Order Comment: Speci men Type: BLOOD SPECIMENOrdering Facility: [facility] Address: [address] [place] [address] Performed By: #### 5 7021-8 ####[facility] LABCLIA [id number] [place] [address] MCV (RBC) [Entitic vol] 105.9 fL High 80.0-100.0 [facility] Comment on above: Order Comment: Speci men Type: BLOOD SPECIMENOrdering Facility: [facility] Address: [address] [place] [address] Performed By: #### 5 7021-8 ####[facility] LABCLIA [id number] [place] [address] Monocytes (Bld) [#/Vol] 1.38 10*3/uL High <0.87 [facility] Comment on above: Order Comment: Speci men Type: BLOOD SPECIMENOrdering Facility: [facility] Address: [address] [place] [address] Performed By: #### 5 7021-8 ####[facility] LABCLIA [id number] [place] [address] Monocytes/100 WBC (Bld) 37.8 % Normal [facility] Comment on above: Order Comment: Speci men Type: BLOOD SPECIMENOrdering Facility: [facility] Address: [address] [place] [address] Performed By: #### 5 7021-8 ####[facility] LABCLIA [id number] [place] [address] Neutrophils (Bld) [#/Vol] 1.25 10*3/uL Low 1.45-7.50 [facility] Comment on above: Order Comment: Speci men Type: BLOOD SPECIMENOrdering Facility: [facility] Address: [address] [place] [address] Performed By: #### 5 7021-8 ####[facility] LABCLIA [id number] [place] [address] Neutrophils/100 WBC (Bld) 34.2 % Normal [facility] Comment on above: Order Comment: Speci men Type: BLOOD SPECIMENOrdering Facility: [facility] Address: [address] [place] [address] Performed By: #### 5 7021-8 ####[facility] LABCLIA [id number] [place] [address] Nucleated RBC (Bld) [#/Vol] 10*3/uL Normal <0.01 [facility] Comment on above: Order Comment: Speci men Type: BLOOD SPECIMENOrdering Facility: [facility] Address: [address] [place] [address] Performed By: #### 5 7021-8 ####[facility] LABCLIA [id number] [place] [address] Nucleated RBC/100 WBC (Bld) [Ratio] 0.0 /100 WBC Normal [facility] Comment on above: Order Comment: Speci men Type: BLOOD SPECIMENOrdering Facility: [facility] Address: [address] [place] [address] Performed By: #### 5 7021-8 ####[facility] LABCLIA [id number] [place] [address] Platelet mean volume (Bld) [Entitic vol] 9.6 fL Normal 9.0-12.7 [facility] Comment on above: Order Comment: Speci men Type: BLOOD SPECIMENOrdering Facility: [facility] Address: [address] [place] [address] Performed By: #### 5 7021-8 ####[facility] LABCLIA [id number] [place] [address] Platelets (Bld) [#/Vol] 151 10*3/uL Normal 150-400 [facility] Comment on above: Order Comment: Speci men Type: BLOOD SPECIMENOrdering Facility: [facility] Address: [address] [place] [address] Performed By: #### 5 7021-8 ####[facility] LABIA [id number] [place] [address] RBC (Bld) [#/Vol] 3.37 10*6/uL Low 4.20-6.00 [facility] Comment on above: Order Comment: Speci men Type: BLOOD SPECIMENOrdering Facility: [facility] Address: [address] [place] [address] Performed By: #### 5 7021-8 ####[facility] LABIA [id number] [place] [address] WBC (Bld) [#/Vol] 3.65 10*3/uL Low 3.70-11.00 [facility] Comment on above: Order Comment: Speci men Type: BLOOD SPECIMENOrdering Facility: [facility] Address: [address] [place] [address] Performed By: #### 5 7021-8 ####[facility] LABIA [id number] [place] [address] IMMUNOFIXATION SCREEN, SERUM on 01-21-2024 INTERPRETATION (MPA) Atypical restricted band is present in the lambda region. Consistent with lambda containing monoclonal gammopathy. IgD and IgE negative by immunofixation. Performed at [employer] [facility] [place] Normal [facility] Comment on above: Order Comment: Speci men Type: BLOOD SPECIMEN [facility] Facility: [facility] Address: [address] [place] [address] Performed By: #### I FESC #### [facility] CLIA [id number] [address] [place] [address] [place] MPA RESULT M protein is present. Abnormal No M p rotein is identified. [facility] Comment on above: Order Comment: Speci men Type: BLOOD SPECIMEN Order[facility] Facility: [facility] Address: [address] [place] [address] Performed By: #### I FESC #### [facility] CLIA [id number] [address] [place] [address] [place] STAFF REVIEW (MPA) Reviewed by Dr. Rowan Ibarra MD [facility] Comment on above: Order Comment: Speci men Type: BLOOD SPECIMEN [facility] Facility: [facility] Address: [address] [place] [address] Performed By: #### I FESC #### [facility] CLIA [id number] [address] [place] [address] [place] IMMUNOGLOBULINS,IGG,IGA,IGMo n 01-21-2024 IgA [Mass/Vol] 110 mg/dL Normal 70-400 [facility] Comment on above: Order Comment: Speci men Type: BLOOD SPECIMEN [facility]ing Facility: [facility] Address: [address] [place] [address] Performed By: #### I FESC #### [facility] CLIA [id number] [address] [place] [address] [place] IgG [Mass/Vol] 1011 mg/dL Normal 700-1600 [facility] Comment on above: Order Comment: Speci men Type: BLOOD SPECIMEN [facility]: [facility] Address: [address] [place] [address] Performed By: #### I FESC #### [facility] CLIA [id number] [address] [place] [address] [place] IgM [Mass/Vol] 64 mg/dL Normal 40-230 [facility] Comment on above: Order Comment: Speci men Type: BLOOD SPECIMEN [facility]: [facility] Address: [address] [place] [address] Performed By: #### I FES #### [facility] CLIA [id number] [address] [place] [address] [place] KAPPA/ARDON,FREE,SERon 2023 Immunoglobulin light chains.kappa.free (S) [Mass/Vol] 30.8 mg/L High 3.3-19.4 [facility] Comment on above: Order Comment: Speci men Type: BLOOD SPECIMEN [facility]: [facility] Address: [address] [place] [address] Result Comment: Rare ly, increased serum free light chains levels may not be detected or accurately quantified due to prozone phenomenon or in high viscosity samples using this immunoturbidimetric assay. Correlation with other laboratory results and clinical findings is recommended. The [place] Free Light Chain was performed using the Binding Site Optilite immunoturbidimetric method. Result obtained with different assay methods or kits cannot be used interchangeably. Performed By: #### K LFRS #### [facility] CLIA [id number] [address] [place] [address] [place] Immunoglobulin light chains.kappa/Immunog lobulin light chains.lambda (S) [Mass ratio] 1.77 High 0.26-1.65 [facility] Comment on above: Order Comment: Speci men Type: BLOOD SPECIMEN [facility]: [facility] Address: [address] [place] [address] Performed By: #### K LFRS #### [facility] CLIA [id number] [address] [place] [address] [place] Immunoglobulin light chains.lambda.free [Mass/Vol] 17.4 mg/L Normal 5.7-26.3 [facility] Comment on above: Order Comment: Speci men Type: BLOOD SPECIMEN [facility]ing [facility]: [facility] Address: [address] [place] [address] Result Comment: Rare ly, increased serum free [...] interchangeably. Performed By: #### K LFRS #### [facility] CLIA [id number] [address] [place] [address] [place] PROTEIN ELECTROPHORESIS SERU M WITH CARSON (P)on 01-21-2024 Albumin [Mass/Vol] 3.53 g/dL Normal 3.43-5.41 [facility] Comment on above: Order Comment: Speci men Type: BLOOD SPECIMENOrdering Facility: [facility] Address: [address] [place] [address] Performed By: #### L [id number] ####[facility] LABCLIA [id number] [place] [address] [place] Alpha 1 globulin Elph [Mass/Vol] 0.36 g/dL Normal 0.18-0.43 [facility] Comment on above: Order Comment: Speci men Type: BLOOD SPECIMENOrdering Facility: [facility] Address: [address] [place] [address] Performed By: #### L [id number] ####[facility] LABCLIA [id number] [place] [address] [place] Alpha 2 globulin Elph [Mass/Vol] 0.73 g/dL Normal 0.42-0.98 [facility] Comment on above: Order Comment: Speci men Type: BLOOD SPECIMENOrdering Facility: [facility] Address: [address] [place] [address] Performed By: #### L [id number] ####[facility] LABCLIA [id number] [place] [address] [place] Beta globulin Elph [Mass/Vol] 0.74 g/dL Normal 0.61-1.17 [facility] Comment on above: Order Comment: Speci men Type: BLOOD SPECIMENOrdering Facility: [facility] Address: [address] [place] [address] Performed By: #### L [id number] ####[facility] LABIA [id number] [place] [address] [place] COMMENT (SERUM PROT ELECTRO) Monoclonal Protein analysis (immunofixation) is not indicated. Normal [facility] Comment on above: Order Comment: Speci men Type: BLOOD SPECIMENOrdering Facility: [facility] Address: [address] [place] [address] Performed By: #### L [id number] ####[facility] [id number] [place] [address] [place] Gamma globulin Elph [Mass/Vol] 0.84 g/dL Normal 0.53-1.51 [facility] Comment on above: Order Comment: Speci men Type: BLOOD SPECIMENOrdering Facility: [facility] Address: [address] [place] [address] Performed By: #### L [id number] ####[facility] LABIA [id number] [place] [address] [place] INTERPRETATION COMMENT FOR PROTEIN ELECTROPHORESIS See separate immunofixation report for characterization of monoclonal gammopathy. Normal [facility] Comment on above: Order Comment: Speci men Type: BLOOD SPECIMENOrdering Facility: [facility] Address: [address] [place] [address] Performed By: #### L [id number] ####[facility] LABIA [id number] [place] [address] [place] M-PROTEIN LOCATION Gamma Fraction 1 Normal [facility] Comment on above: Order Comment: Speci men Type: BLOOD SPECIMENOrdering Facility: [facility] Address: [address] [place] [address] Performed By: #### L [id number] ####[facility] LABCLIA [id number] [place] [address] [place] Protein Fractions [Interp] An M protein is identified on protein electrophoresis. Abnormal No definitive M protein is identified on protein electrophore sis. [facility] Comment on above: Order Comment: Speci men Type: BLOOD SPECIMENOrdering Facility: [facility] Address: [address] [place] [address] Performed By: #### L [id number] ####[facility] LABIA [id number] [place] [address] [place] Protein.monoclonal Elph [Mass/Vol] 0.10 g/dL High <=0.00 [facility] Comment on above: Order Comment: Speci men Type: BLOOD SPECIMENOrdering Facility: [facility] Address: [address] [place] [address] Performed By: #### L [id number] ####[facility] LABIA [id number] [place] [address] [place] SPE STAFF REVIEW Reviewed by Fran Boyd MD, Ph.D ([id number]) Normal [facility] Comment on above: Order Comment: Speci men Type: BLOOD SPECIMENOrdering Facility: [facility] Address: [address] [place] [address] Performed By: #### L [id number] ####[facility] LABIA [id number] [place] [address] [place] PSA [facility] 01-21-2024 Prostate specific Ag [Mass/Vol] 0.23 ng/mL Normal <2.60 [facility] Comment on above: Order Comment: Speci men Type: BLOOD SPECIMENOrdering Facility: [facility] Address: [address] [place] [address] Result Comment: Tota l PSA test methodology used is the Electrochemiluminescence Immunoassay by [employer]. Total PSA values by differing methodologies cannot be interchanged. Performed By: #### 2 857-1 ####[facility] LABCLIA [id number] [facility] [place] [address] [place] Prot SerPl-mCncon 01-21-2024 Protein [Mass/Vol] 6.2 g/dL Low 6.3-8.0 [facility] Comment on above: Order Comment: Speci men Type: BLOOD SPECIMEN Ordering Facility: [facility] Address: [address] [place] [address] Performed By: #### I [facility] #### [facility] CLIA [id number] [address] [place], [place] [address] [address] [place] CHEMISTRYOrdered By: SYSTEM [...] reviewed by ts . PROF CHEM 8 ([facility])on Anion gap [Moles/Vol] 14.0 mmol/L Normal [facility] Comment on above: Performed By: #### B MP ####[facility] [address] [address]Dr. Trevor Nichols Calcium [Mass/Vol] 8.8 mg/dL Normal 8.5-10.1 [facility] Comment on above: Performed By: #### B MP ####[facility] [address] [address]Dr. Trevor Nichols Chloride [Moles/Vol] 104 mmol/L Normal 98-107 [facility] Comment on above: Performed By: #### B MP ####[facility] [address] [address]Dr. Trevor Nichols CO2 [Moles/Vol] 26.0 mmol/L Normal 21.0-32.0 [facility] Comment on above: Performed By: #### B MP ####[facility] [address] [address]Dr. Trevor Nichols Creatinine [Mass/Vol] 1.49 mg/dL Critically high 0.70-1.30 [facility] Comment on above: Performed By: #### B MP ####[facility] [address] [address]Dr. Trevor Nichols EGFR-AF ANGOLAN 56 mL/min/1.73m2 Critically low >=60 [facility] Comment on above: Performed By: #### B MP ####[facility] [address] [address]Dr. Trevor Nichols EGFR-NON AF ANGOLAN 46 mL/min/1.73m2 Critically low >=60 [facility] Comment on above: Performed By: #### B MP ####[facility] [address] [address]Dr. Trevor Nichols Glucose [Mass/Vol] 115 mg/dL Critically high 74-106 [facility] Comment on above: Performed By: #### B MP ####[facility] [address] [address]Dr. Trevor Nichols Potassium [Moles/Vol] 4.0 mmol/L Normal 3.5-5.1 [facility] Comment on above: Performed By: #### B MP ####[facility] [address] [address]Dr. Trevor Nichols Sodium [Moles/Vol] 140 mmol/L Normal 136-145 [facility] Comment on above: Performed By: #### B MP ####[facility] [address] [address]Dr. Trevor Nichols Urea nitrogen [Mass/Vol] 22.0 mg/dL Critically high 7.0-18.0 [facility] Comment on above: Performed By: #### B MP ####[facility] [address] [address]Dr. Trevor Nichols Urea nitrogen/Creatinine [Mass ratio] 14.8 mg/mg Normal [facility] Comment on above: Performed By: #### B MP ####[facility] [facility] [id number] [place] [address]Dr. Trevor Nichols NM STRESS/REST MULTIon 04-16 NM STRESS/REST MULTI Patient: JANNETH JUAREZ Exam Date: 04/16/2022 : 1945 Gender:M Ordering : DR DANIELLA EASTON M.D. Admission #: [id number] Family : DR WILL SHERWOOD . Order #: [id number] CLICK HERE TO VIEW EXAM RADIOLOGY REPORT [...] Beatty MD on 04/16/2022 at 10:23 Normal [facility] ECHOCARDIO M/2D COMPLETEon 0 02-19-2022 ECHOCARDIO M/2D COMPLETE Patient: CHIKI JUAREZ Exam Date: 02/19/2022 : 1945 Gender:M Ordering : [employer] Admission #: [id number] Family : DR WILL SHERWOOD . Order #: [id number] CLICK HERE TO VIEW EXAM ECHOCARDIOGRAM REPORT [...] M.D. on 02/19/2022 at 19:53 Normal [facility] LIPID PROFILEon 02-10-2022 CHOL-HDL RATIO NORM SEE BELOW Normal [facility] Comment on above: Result Comment: 3.3 - 4.4 LOW RISK 4.4 - 7.1 AVERAGE RISK 7.1 - 11.0 MODERATE RISK >11.0 HIGH RISK Performed By: #### L IPID #### [facility] [address] [place] [address] Dr. Trevor Nichols Cholesterol [Mass/Vol] 171 mg/dL Normal <=200 [facility] Comment on above: Performed By: #### L IPID #### [facility] [address] [place] [address] Dr. Trevor Nichols Cholesterol in HDL [Mass/Vol] 40 mg/dL Normal 40-60 [facility] Comment on above: Performed By: #### L IPID #### [facility] [address] [place] [address] Dr. Trevor Ncihols Cholesterol in LDL [Mass/Vol] 114.0 mg/dL Normal [facility] Comment on above: Performed By: #### L IPID #### [facility] [address] [place] [address] Dr. Trevor Nichols Cholesterol.total/Ch olesterol in HDL [Mass ratio] 4.3 {ratio} Normal [facility] Comment on above: Performed By: #### L IPID #### [facility] [address] [place] [address] Dr. Trevor Nichols HDL NORMAL > or = 60 mg/dl - LO W CARDIOVASCULAR RISK <40 mg/dl - HIGH CARDIOVASCULAR RISK Normal [facility] Comment on above: Performed By: #### L IPID #### [facility] [address] [place] [address] Dr. Trevor Nichols LDL CALC NORMAL SEE BELOW Normal [facility] Comment on above: Result Comment: <100 mg/dl OPTIMAL 100 - 129 mg/dl NEAR OR ABOVE OPTIMAL 130 - 159 mg/dl BORDERLINE HIGH 160 - 189 mg/dl HIGH >190 mg/dl VERY HIGH Performed By: #### L IPID #### [facility] [address] [place] [address] Dr. Trevor Nichols Triglyceride [Mass/Vol] 85 mg/dL Normal <=150 [facility] Comment on above: Performed By: #### L IPID #### [facility] [address] [place] [address] Dr. Trevor Nichols VLDL CALC 17.0 mg/dL Normal [facility] Comment on above: Performed By: #### L IPID #### [facility] [address] [place] [address] Dr. Trevor Nichols BNPon 02-05-2022 Natriuretic peptide B (Bld) [Mass/Vol] 231.0 pg/mL Normal <=900.0 [facility] Comment on above: Performed By: #### H STROPN, BNP, BMP #### [facility] [address] [place] [address] Dr. Trevor Nichols CBC W MANUAL DIFFon 02-06-20 ANISOCYTOSIS 1+ Normal [facility] Comment on above: Performed By: #### C JOBY #### [facility] [address] [place] [address] Dr. Trevor Nichols ATYPICAL LYMPH # Normal [facility] Comment on above: Performed By: #### C JOBY #### [facility] [address] [place] [address] Dr. Trevor Nichols ATYPICAL LYMPH % Normal [facility] Comment on above: Performed By: #### C JOBY #### [facility] [address] [place] [address] Dr. Trevor Nichols BAND # 0.3 103/ul Normal 0.0-0.3 [facility] Comment on above: Performed By: #### C JOBY #### [facility] [address] [place] [address] Dr. Trevor Nichols BAND % 6 % Critically high 0-5 [facility] Comment on above: Performed By: #### C JOBY #### [facility] [address] [place] [address] Dr. Trevor Nichols BASOM # 0.00 103/ul Normal 0.00-0.10 [facility] Comment on above: Performed By: #### C JOBY #### [facility] [address] [place] [address] Dr. Trevor Nichols BASOM % 0.0 % Critically low 0.2-2.0 [facility] Comment on above: Performed By: #### C JOBY #### [facility] [address] [place] [address] Dr. Trevor Nichols BLAST # Normal [facility] Comment on above: Performed By: #### C BCNADIA #### [facility] [address] [place] [address] Dr. Trevor Nichols BLAST % Normal [facility] Comment on above: Performed By: #### C BCNADIA #### [facility] [address] [place] [address] Dr. Trevor Nichols CORRECTED WBC Normal 4.0-11.0 [facility] Comment on above: Performed By: #### C JOBY #### [facility] [address] [place] [address] Dr. Trevor Nichols EOS # 0.04 103/ul Normal 0.00-0.70 [facility] Comment on above: Performed By: #### C JOBY #### [facility] [address] [place] [address] Dr. Trevor Nichols EOS% 1.0 % Normal 0.9-7.0 [facility] Comment on above: Performed By: #### C JOBY #### [facility] [address] [place] [address] Dr. Trevor Nichols HCT 36.4 % Critically low 42.0-54.0 [facility] Comment on above: Performed By: #### C JOBY #### [facility] [address] [place] [address] Dr. Trevor Nichols HGB 11.4 g/dl Critically low 14.0-18.0 [facility] Comment on above: Performed By: #### C JOBY #### [facility] [address] [place] [address] Dr. Trevor Nichols HYPOCHROMASIA SLIGHT Normal [facility] Comment on above: Performed By: #### C JOBY #### [facility] [address] [place] [address] Dr. Trevor Nichols LYMPHM # 1.19 103/ul Critically low 1.20-3.80 [facility] Comment on above: Performed By: #### C JOBY #### [facility] [address] [address] [address] Trevor Nichols LYMPHM% 27.0 % Normal 20.5-60.0 [facility] Comment on above: Performed By: #### C JOBY #### [facility] [address] [place] [address] Dr. Trevor Nichols MCH 32.5 pg Normal 25.9-34.0 [facility] Comment on above: Performed By: #### C JOBY #### [facility] [address] [address] [address] Trevor Nichols MCHC 31.3 g/dl Normal 29.9-35.2 [facility] Comment on above: Performed By: #### C JOBY #### [facility] [address] [place] [address] Dr. Trevor Nichols MCV 103.7 fL Critically high 80.0-94.0 [facility] Comment on above: Performed By: #### C JOBY #### [facility] [address] [place] [address] Dr. Trevor Nichols METAMYELOCYTE # Normal [facility] Comment on above: Performed By: #### C JOBY #### [facility] [address] [place] [address] Dr. Trevor Nichols METAMYELOCYTE % Normal [facility] Comment on above: Performed By: #### C JOBY #### [facility] [address] [place] [address] Dr. Trevor Nichols MONOM# 1.28 103/ul Critically high 0.30-0.80 [facility] Comment on above: Performed By: #### C JOBY #### [facility] [address] [place] [address] Dr. Trevor Nichols MONOM% 29.0 % Critically high 1.7-12.0 [facility] Comment on above: Performed By: #### C JOBY #### [facility] [address] [place] [address] Dr. Trevor Nichols MPV 10.5 fL Normal 9.5-13.5 [facility] Comment on above: Performed By: #### C BCMAN #### [facility] [address] [address] [address] Trevor Nichols MYELOCYTE # Normal [facility] Comment on above: Performed By: #### C BCNADIA #### [facility] [address] [place] [address] Dr. Trevor Nichols MYELOCYTE % Normal [facility] Comment on above: Performed By: #### C BCNADIA #### [facility] [address] [place] [address] Dr. Trevor Nichols NRBC Normal [facility] Comment on above: Performed By: #### C JOBY #### [facility] [address] [place] [address] Dr. Trevor Nichols PLT 161 103/ul Normal 150-450 [facility] Comment on above: Performed By: #### C JOBY #### [facility] [address] [place] [address] Dr. Trevor Nichols RBC 3.51 106/ul Critically low 4.70-6.10 [facility] Comment on above: Performed By: #### C JOBY #### [facility] [address] [place] [address] Dr. Trevor Nichols RDW 16.0 % Critically high 11.0-15.0 [facility] Comment on above: Performed By: #### C BCNADIA #### [facility] [address] [place] [address] Dr. Trevor Nichols SEG # 1.63 103/ul Normal 1.40-6.50 [facility] Comment on above: Performed By: #### C BCNADIA #### [facility] [address] [place] [address] Dr. Trevor Nichols SEG % 37.0 % Critically low 43.0-75.0 [facility] Comment on above: Performed By: #### C BCNADIA #### [facility] [address] [place] [address] Dr. Trevor Nichols WBC 4.4 103/ul Normal 4.0-11.0 [facility] Comment on above: Performed By: #### C BCMAN #### [facility] [address] [address] [address] Trevor Nichols PROF 14(COMP METB)on 022 Albumin [Mass/Vol] 3.4 g/dL Normal 3.4-5.0 [facility] Comment on above: Performed By: #### H STROPN, BNP, BMP #### [facility] [address] [address] [address] Trevor Nichols Albumin/Globulin [Mass ratio] 0.9 {ratio} Normal [facility] Comment on above: Performed By: #### H STROPN, BNP, BMP #### [facility] [address] [place] [address] Dr. Trevor Nichols ALP [Catalytic activity/Vol] 99 U/L Normal 46-116 [facility] Comment on above: Performed By: #### H STROPN, BNP, BMP #### [facility] [address] [address] [address] Trevor iNchols ALT [Catalytic activity/Vol] 18 U/L Normal 16-63 [facility] Comment on above: Performed By: #### H STROPN, BNP, BMP #### [facility] [address] [place] [address] Dr. Trevor Nichols Anion gap [Moles/Vol] 13.5 mmol/L Normal [facility] Comment on above: Performed By: #### H STROPN, BNP, BMP #### [facility] [address] [address] [address] Trevor Nichols AST [Catalytic activity/Vol] 10 U/L Critically low 15-37 [facility] Comment on above: Performed By: #### H STROPN, BNP, BMP #### [facility] [address] [place] [address] Dr. Trevor Nichols Bilirubin [Mass/Vol] 0.5 mg/dL Normal 0.2-1.0 [facility] Comment on above: Performed By: #### H STROPN, BNP, BMP #### [facility] [address] [place] [address] Dr. Trevor Nichols Calcium [Mass/Vol] 8.8 mg/dL Normal 8.5-10.1 [facility] Comment on above: Performed By: #### H STROPN, BNP, BMP #### [facility] [address] [address] [address] Trevor Nichols Chloride [Moles/Vol] 106 mmol/L Normal 98-107 [facility] Comment on above: Performed By: #### H STROPN, BNP, BMP #### [facility] [address] [address] [address] Trevor Nichols CO2 [Moles/Vol] 24.3 mmol/L Normal 21.0-32.0 [facility] Comment on above: Performed By: #### H STROPN, BNP, BMP #### [facility] [address] [place] [address] Dr. Trevor Nichols Creatinine [Mass/Vol] 1.35 mg/dL Critically high 0.70-1.30 [facility] Comment on above: Performed By: #### H STROPN, BNP, BMP #### [facility] [address] [place] [address] Dr. Trevor Nichols EGFR-AF ANGOLAN >60 Normal >=60 [facility] Comment on above: Performed By: #### H STROPN, BNP, BMP #### [facility] [address] [place] [address] Dr. Trevor Nichols EGFR-NON AF ANGOLAN 52 mL/min/1.73m2 Critically low >=60 [facility] Comment on above: Performed By: #### H STROPN, BNP, BMP #### [facility] [address] [address] [address] Trevor Nichols Globulin (S) [Mass/Vol] 3.8 g/dL Normal [facility] Comment on above: Performed By: #### H STROPN, BNP, BMP #### [facility] [address] [address] [address] Trevor Nichols Glucose [Mass/Vol] 103 mg/dL Normal 74-106 [facility] Comment on above: Performed By: #### H STROPN, BNP, BMP #### [facility] [address] [address] [address] Trevor Nichols Potassium [Moles/Vol] 3.8 mmol/L Normal 3.5-5.1 [facility] Comment on above: Performed By: #### H STROPN, BNP, BMP #### [facility] [address] [place] [address] Dr. Trevor Nichols Protein [Mass/Vol] 7.2 g/dL Normal 6.4-8.2 [facility] Comment on above: Performed By: #### H STROPN, BNP, BMP #### [facility] [address] [place] [address] Dr. Trevor Nichols Sodium [Moles/Vol] 140 mmol/L Normal 136-145 [facility] Comment on above: Performed By: #### H STROPN, BNP, BMP #### [facility] [address] [place] [address] Dr. Trevor Nichols Urea nitrogen [Mass/Vol] 22.0 mg/dL Critically high 7.0-18.0 [facility] Comment on above: Performed By: #### H STROPN, BNP, BMP #### [facility] [address] [place] [address] Dr. Trevor Nichols Urea nitrogen/Creatinine [Mass ratio] 16.3 mg/mg Normal [facility] Comment on above: Performed By: #### H STROPN, BNP, BMP #### [facility] [address] [place] [address] Dr. Trevor Nichols TSHon 02-05-2022 TSH 3.360 uIU/mL Normal 0.358-3.740 [facility] Comment on above: Performed By: #### H STROPN, BNP, BMP #### [facility] [address] [place] [address] Dr. Trevor Nichols XR CHEST 2 Von [...] by: ALLAN FLOREZ Date: 2022-02-05 17:03 Normal [facility] XR BONE SURVEYon 09-25-2021 XR [...] by: SHAY BERNSTEIN Date: 2021-09-25 07:30 Normal [facility] PROTEIN ELECTROPHERESISon Albumin [Mass/Vol] 3.2 g/dL Normal 2.9-4.4 [facility] Comment on above: Performed By: #### P RTELEC ####[facility] [address] [place] [address]Dr. Trevor Nichols Albumin/Globulin [Mass ratio] 1.1 {ratio} Normal 0.7-1.7 [facility] Comment on above: Performed By: #### P RTELEC ####[facility] [address] [address]Dr. Trevor Nichols Yiovz-5-Layysatw 0.3 g/dL Normal 0.0-0.4 [facility] Comment on above: Performed By: #### P RTELEC ####[facility] [address] [place], [place] [address]Dr. Trevor Nichols Odngz-1-Sqxpzwky 0.8 g/dL Normal 0.4-1.0 [facility] Comment on above: Performed By: #### P RTELEC ####[facility] [address] [place], [place] [address]Dr. Trevor Nichols Beta Globulin 1.0 g/dL Normal 0.7-1.3 [facility] Comment on above: Performed By: #### P RTELEC ####[facility] [address] [place], [place] [address]Dr. Trevor Nichols Gamma Globulin 0.8 g/dL Normal 0.4-1.8 [facility] Comment on above: Performed By: #### P RTELEC ####[facility] [address] [address]Dr. Vivilan Nichols Globulin (S) [Mass/Vol] 2.9 g/dL Normal 2.2-3.9 [facility] Comment on above: Performed By: #### P RTELEC ####[facility] [address] [place] [address]Dr. Vivilan Nichols M-Jorge 0.1 g/dL Critically high Not Observed [facility] Comment on above: Performed By: #### P RTELEC ####[facility] [address] [place] [address]DrJeffery Nichols PDF . Normal [facility] Comment on above: Performed By: #### P RTELEC ####[facility] [address] [place] [address]Dr. Trevor Nichols Please note: Comment Normal [facility] Comment on above: Result Comment: Prot ein electrophoresis scan will follow via computer, mail, or door closer mechanic delivery. Performed By: #### P RTELEC ####[facility] [address] [place] [address]Dr. Trevor Nichols Protein [Mass/Vol] 6.1 g/dL Normal 6.0-8.5 [facility] Comment on above: Performed By: #### P RTELEC ####[facility] [address] [place] [address]DrJeffery Nichols PROF CHEM 8 (BAS METB)on Anion gap [Moles/Vol] 16.3 mmol/L Normal [facility] Comment on above: Performed By: #### H STROPN, BNP, BMP #### [facility] [address] [address] [address] Trevor Nichols Calcium [Mass/Vol] 9.1 mg/dL Normal 8.4-10.2 [facility] Comment on above: Performed By: #### H STROPN, BNP, BMP #### [facility] [address] [address] [address] Trevor Nichols Chloride [Moles/Vol] 104 mmol/L Normal 98-107 [facility] Comment on above: Performed By: #### H STROPN, BNP, BMP #### [facility] [address] [address] [address] Trevor Nichols CO2 [Moles/Vol] 23.3 mmol/L Normal 22.0-30.0 [facility] Comment on above: Performed By: #### H STROPN, BNP, BMP #### [facility] [address] [address] [address] Trevor Nichols Creatinine [Mass/Vol] 1.28 mg/dL Critically high 0.66-1.25 [facility] Comment on above: Performed By: #### H STROPN, BNP, BMP #### [facility] [address] [address] [address] Trevor Nichols EGFR-AF ANGOLAN >60 Normal >=60 [facility] Comment on above: Performed By: #### H STROPN, BNP, BMP #### [facility] [address] [place] [address] Dr. Trevor Nichols EGFR-NON AF ANGOLAN 55 mL/min/1.73m2 Critically low >=60 [facility] Comment on above: Performed By: #### H STROPN, BNP, BMP #### [facility] [address] [place] [address] Dr. Trevor Nichols Glucose [Mass/Vol] 98 mg/dL Normal 74-106 [facility] Comment on above: Performed By: #### H STROPN, BNP, BMP #### [facility] [address] [place] [address] Dr. Trevor Nichols Potassium [Moles/Vol] 3.6 mmol/L Normal 3.4-5.0 [facility] Comment on above: Performed By: #### H STROPN, BNP, BMP #### [facility] [address] [place] [address] Dr. Trevor Nichols Sodium [Moles/Vol] 140 mmol/L Normal 137-145 [facility] Comment on above: Performed By: #### H STROPN, BNP, BMP #### [facility] [address] [place] [address] Dr. Trevor Nichols Urea nitrogen [Mass/Vol] 25.0 mg/dL Critically high 9.0-20.0 [facility] Comment on above: Performed By: #### H STROPN, BNP, BMP #### [facility] [address] [place] [address] Dr. Trevor Nichols Urea nitrogen/Creatinine [Mass ratio] 19.5 mg/mg Normal [facility] Comment on above: Performed By: #### H STROPN, BNP, BMP #### [facility] [address] [place] [address] Dr. Trevor Nichols XR MODIFIED BARIUM SWALLOWon [...] by: SHAY BERNSTEIN Date: 2021-09-05 10:40 Normal [facility] CULTURE SPUTUMon 08-01-2021 CULTURE SPUTUM Isolate [...] Trimethoprim/Sulfamethoxaz ole <=20 S F Normal [facility] Comment on above: Performed By: #### H STROPN, BNP, BMP #### [facility] [address] [place], [place] [address] Dr. Trevor Nichols SPUTUM GRAM STAINon 07-30-20 21 COMMENTS Normal [facility] Comment on above: Performed By: #### S PUTGS ####[facility] [address] [place], [place] [address]EbDr. Trevor Nichols DIPHTHEROIDS Normal [facility] Comment on above: Performed By: #### S PUTGS ####[facility] [address] [address]Dr. Trevor Nichols EPITHELIALS >25 Normal [facility] Comment on above: Performed By: #### S PUTGS ####[facility] [address] [address]Dr. Trevor Nichols FUNGAL ELEMENTS Normal [facility] Comment on above: Performed By: #### S PUTGS ####[facility] [address] [address]Dr. Trevor Nichols GRAM NEG BACILLI RARE Normal [facility] Comment on above: Performed By: #### S PUTGS ####[facility] [address] [place], [place] [address]Dr. Trevor Nichols GRAM NEG DIPPLOCOCCI Normal [facility] Comment on above: Performed By: #### S PUTGS ####[facility] [address] [place], [place] [address]Dr. Trevor Nichols GRAM POS BACILLI MANY Normal [facility] Comment on above: Performed By: #### S PUTGS ####[facility] [address] [place], [place] [address]Dr. Trevor Nichols GRAM POSITIVE COCCI MANY Normal [facility] Comment on above: Performed By: #### S PUTGS ####[facility] [address] [place], [place] [address]Dr. Trevor Nichols WBC (Bld) [#/Vol] 10*3/uL Normal [facility] Comment on above: Performed By: #### S PUTGS ####[facility] [address] [place], [place] [address]Dr. Trevor Nichols ECHOCARDIO M/2D COMPLETEon 1 09-24-2020 ECHOCARDIO M/2D COMPLETE Patient: CHIKI JUAREZ Exam Date: 07/24/2021 : 1945 Gender:M Ordering : [employer] Admission #: [id number] Family : DR WILL SHERWOOD . Order #: [id number] CLICK HERE TO VIEW EXAM ECHOCARDIOGRAM REPORT [...] M.D. on 07/24/2021 at 20:08 Normal [facility] CBC W MANUAL DIFFon -22-20 21 ATYPICAL LYMPH # Normal [facility] Comment on above: Performed By: #### H STROPN, BNP, BMP #### [facility] [address] [place] [address] Dr. Trevor Nichols ATYPICAL LYMPH % Normal [facility] Comment on above: Performed By: #### H STROPN, BNP, BMP #### [facility] [address] [place] [address] Dr. Trevor Nichols BAND # 0.1 103/ul Normal 0.0-0.3 [facility] Comment on above: Performed By: #### H STROPN, BNP, BMP #### [facility] [address] [place] [address] Dr. Trevor Nichols BAND % 2 % Normal 0-5 [facility] Comment on above: Performed By: #### H STROPN, BNP, BMP #### [facility] [address] [place] [address] Dr. Trevor Nichols BASOM # 0.00 103/ul Normal 0.00-0.10 [facility] Comment on above: Performed By: #### H STROPN, BNP, BMP #### [facility] [address] [place] [address] Dr. Trevor Nichols BASOM % 0.0 % Critically low 0.2-2.0 [facility] Comment on above: Performed By: #### H STROPN, BNP, BMP #### [facility] [address] [place] [address] Dr. Trevor Nichols BLAST # Normal [facility] Comment on above: Performed By: #### H STROPN, BNP, BMP #### [facility] [address] [place] [address] Dr. Trevor Nichols BLAST % Normal [facility] Comment on above: Performed By: #### H STROPN, BNP, BMP #### [facility] [address] [place] [address] Dr. Trevor Nichols CORRECTED WBC Normal 4.0-11.0 [facility] Comment on above: Performed By: #### H STROPN, BNP, BMP #### [facility] [address] [place] [address] Dr. Trevor Nichols EOS # 0.06 103/ul Normal 0.00-0.70 [facility] Comment on above: Performed By: #### H STROPN, BNP, BMP #### [facility] [address] [place], [place] [id number] Dr. Trevor Nichols EOS% 1.0 % Normal 0.9-7.0 [facility] Comment on above: Performed By: #### H STROPN, BNP, BMP #### [facility] [address] [address] [address] Trevor Nichols HCT 31.6 % Critically low 42.0-54.0 [facility] Comment on above: Performed By: #### H STROPN, BNP, BMP #### [facility] [address] [address] [address] Trevor Nichols HGB 9.7 g/dl Critically low 14.0-18.0 [facility] Comment on above: Performed By: #### H STROPN, BNP, BMP #### [facility] [address] [place] [address] Dr. Trevor Nichols LYMPHM # 0.46 103/ul Critically low 1.20-3.80 [facility] Comment on above: Performed By: #### H STROPN, BNP, BMP #### [facility] [address] [place] [address] Dr. Trevor Nichols LYMPHM% 8.0 % Critically low 20.5-60.0 [facility] Comment on above: Performed By: #### H STROPN, BNP, BMP #### [facility] [address] [place] [address] Dr. Trevor Nichols MACROCYTOSIS 1+ Normal [facility] Comment on above: Performed By: #### H STROPN, BNP, BMP #### [facility] [address] [place] [address] Dr. Trevor Nichols MCH 33.6 pg Normal 25.9-34.0 [facility] Comment on above: Performed By: #### H STROPN, BNP, BMP #### [facility] [address] [place] [address] Dr. Trevor Nichols MCHC 30.7 g/dl Normal 29.9-35.2 [facility] Comment on above: Performed By: #### H STROPN, BNP, BMP #### [facility] [address] [place] [address] Dr. Trevor Nichols MCV 109.3 fL Critically high 80.0-94.0 [facility] Comment on above: Performed By: #### H STROPN, BNP, BMP #### [facility] [address] [address] [address] Trevor Nichols METAMYELOCYTE # 0.1 103/ul Normal [facility] Comment on above: Performed By: #### H STROPN, BNP, BMP #### [facility] [address] [address] [address] Trevor Nichols METAMYELOCYTE % 2 % Normal [facility] Comment on above: Performed By: #### H STROPN, BNP, BMP #### [facility] [address] [place] [address] Dr. Trevor Nichols MONOM# 2.22 103/ul Critically high 0.30-0.80 [facility] Comment on above: Performed By: #### H STROPN, BNP, BMP #### [facility] [address] [place] [address] Dr. Trevor Nichols MONOM% 39.0 % Critically high 1.7-12.0 [facility] Comment on above: Performed By: #### H STROPN, BNP, BMP #### [facility] [address] [place] [address] Dr. Trevor Nichols MPV 9.4 fL Critically low 9.5-13.5 [facility] Comment on above: Performed By: #### H STROPN, BNP, BMP #### [facility] [address] [place] [address] Dr. Trevor Nichols MYELOCYTE # 0.3 103/ul Normal [facility] Comment on above: Performed By: #### H STROPN, BNP, BMP #### [facility] [address] [place] [address] Dr. Trevor Nichols MYELOCYTE % 6 % Normal [facility] Comment on above: Performed By: #### H STROPN, BNP, BMP #### [facility] [address] [place] [address] Dr. Trevor Nichols NRBC Normal [facility] Comment on above: Performed By: #### H STROPN, BNP, BMP #### [facility] [address] [address] [address] Trevor Nichols PLT 202 103/ul Normal 150-450 [facility] Comment on above: Performed By: #### H STROPN, BNP, BMP #### [facility] [address] [place], [place] [address] Dr. Trevor Nichols RBC 2.89 106/ul Critically low 4.70-6.10 [facility] Comment on above: Performed By: #### H STROPN, BNP, BMP #### [facility] [address] [address] [address] Trevor Nichols RDW 15.4 % Critically high 11.0-15.0 [facility] Comment on above: Performed By: #### H STROPN, BNP, BMP #### [facility] [address] [address] [address] Trevor Nichols SEG # 2.39 103/ul Normal 1.40-6.50 [facility] Comment on above: Performed By: #### H STROPN, BNP, BMP #### [facility] [address] [address] [address] Trevor Nichols SEG % 42.0 % Critically low 43.0-75.0 [facility] Comment on above: Performed By: #### H STROPN, BNP, BMP #### [facility] [address] [address] [address] Trevor Nichols WBC 5.7 103/ul Normal 4.0-11.0 [facility] Comment on above: Performed By: #### H STROPN, BNP, BMP #### [facility] [address] [address] [address] Trevor Nichols PROF CHEM 8 (BAS METB)on Anion gap [Moles/Vol] 13.1 mmol/L Normal [facility] Comment on above: Performed By: #### B MP ####[facility] [address] [address]Dr. Trevor Nichols Calcium [Mass/Vol] 8.8 mg/dL Normal 8.4-10.2 [facility] Comment on above: Performed By: #### B MP ####[facility] [address] [address]. Trevor Simone Chloride [Moles/Vol] 104 mmol/L Normal 98-107 [facility] Comment on above: Performed By: #### B MP ####[facility] [address] [address]. Vivifrancie Simone CO2 [Moles/Vol] 24.1 mmol/L Normal 22.0-30.0 [facility] Comment on above: Performed By: #### B MP ####[facility] [address] [place], [place] [address]Dr. Vivifrancie Simone Creatinine [Mass/Vol] 1.26 mg/dL Critically high 0.66-1.25 [facility] Comment on above: Performed By: #### B MP ####[facility] [address] [place], [place] [address]Dr. Vivifrancie Simone EGFR-AF ANGOLAN >60 Normal >=60 [facility] Comment on above: Performed By: #### B MP ####[facility] [address] [place], [place] [address]Dr. Vivifrancie Simone EGFR-NON AF ANGOLAN 56 mL/min/1.73m2 Critically low >=60 [facility] Comment on above: Performed By: #### B MP ####[facility] [address] [place], [place] [address]Dr. Trevor Nichols Glucose [Mass/Vol] 98 mg/dL Normal 74-106 [facility] Comment on above: Performed By: #### B MP ####[facility] [address] [place], [place] [address]Dr. Trevor Nichols Potassium [Moles/Vol] 4.2 mmol/L Normal 3.4-5.0 [facility] Comment on above: Performed By: #### B MP ####[facility] [address] [place], [place] [address]Dr. Trevor Nichols Sodium [Moles/Vol] 137 mmol/L Normal 137-145 [facility] Comment on above: Performed By: #### B MP ####[facility] [address] [address]. Trevor Simone Urea nitrogen [Mass/Vol] 20.0 mg/dL Normal 9.0-20.0 [facility] Comment on above: Performed By: #### B MP ####[facility] [address] [place], [place] [address]Dr. Trevor Nichols Urea nitrogen/Creatinine [Mass ratio] 15.9 mg/mg Normal [facility] Comment on above: Performed By: #### B MP ####[facility] [address] [place], [place] [address]Dr. Vivifrancie Nichols CBC AUTO DIFFon 05-16-2021 BASO # 0.0 103/ul Normal 0.0-0.1 [facility] Comment on above: Performed By: #### C BC ####[facility] [address] [place], [place] [address]Dr. Trevor Nichols Basophils/100 WBC (Bld) 0.2 % Normal 0.2-2.0 [facility] Comment on above: Performed By: #### C BC ####[facility] [address] [place], [place] [address]Dr. Trevor Nichols EO # 0.0 103/ul Normal 0.0-0.7 [facility] Comment on above: Performed By: #### C BC ####[facility] [address] [place], [place] [address]Dr. Trevor Nichols Eosinophils/100 WBC (Bld) 0.0 % Critically low 0.9-7.0 [facility] Comment on above: Performed By: #### C BC ####[facility] [address] [place], [place] [address]Dr. Trevor Nichols Erythrocyte distribution width (RBC) [Ratio] 15.1 % Critically high 11.0-15.0 [facility] Comment on above: Performed By: #### C BC ####[facility] [address] [place], [place] [address]Dr. Trevor Nichols Hematocrit (Bld) [Volume fraction] 32.9 % Critically low 42.0-54.0 [facility] Comment on above: Performed By: #### C BC ####[facility] [address] [address]DrJeffery Nichols Hemoglobin (Bld) [Mass/Vol] 10.5 g/dL Critically low 14.0-18.0 [facility] Comment on above: Performed By: #### C BC ####[facility] [address] [place], [place] [address]DreJffery Nichols IG # 0.29 10e3/ul Critically high 0.00-0.03 [facility] Comment on above: Performed By: #### C BC ####[facility] [address] [place], [place] [address]DrJeffery Nichols IG % 6.5 % Critically high 0.0-0.5 [facility] Comment on above: Performed By: #### C BC ####[facility] [address] [place], [place] [address]DrJeffery Nichols LYMPH # 0.2 103/ul Critically low 1.2-3.8 [facility] Comment on above: Performed By: #### C BC ####[facility] [address] [place], [place] [address]DrJeffery Nichols Lymphocytes/100 WBC (Bld) 5.4 % Critically low 20.5-60.0 [facility] Comment on above: Performed By: #### C BC ####[facility] [address] [place], [place] [address]DrJeffery Nichols MANUAL DIFF REQ NO Normal [facility] Comment on above: Performed By: #### C BC ####[facility] [address] [place], [place] [address]DrJeffery Nichols MCH (RBC) [Entitic mass] 33.8 pg Normal 25.9-34.0 [facility] Comment on above: Performed By: #### C BC ####[facility] [address] [place], [place] [address]DrJeffery Nichols MCHC (RBC) [Mass/Vol] 31.9 g/dL Normal 29.9-35.2 [facility] Comment on above: Performed By: #### C BC ####[facility] [address] [address]DrJeffery Nichols MCV (RBC) [Entitic vol] 105.8 fL Critically high 80.0-94.0 [facility] Comment on above: Performed By: #### C BC ####[facility] [address] [place], [place] [address]DrJeffery Nichols MONO # 0.3 103/ul Normal 0.3-0.8 [facility] Comment on above: Performed By: #### C BC ####[facility] [address] [place], [place] [address]DrJeffery Nichols Monocytes/100 WBC (Bld) 7.6 % Normal 1.7-12.0 [facility] Comment on above: Performed By: #### C BC ####[facility] [address] [place], [place] [address]DrJeffery Nichols NEUT # 3.6 103/ul Normal 1.4-6.5 [facility] Comment on above: Performed By: #### C BC ####[facility] [address] [place], [place] [address]DrJeffery Nichols Neutrophils/100 WBC (Bld) 80.3 % Critically high 43.0-75.0 [facility] Comment on above: Performed By: #### C BC ####[facility] [address] [place], [place] [address]DrJeffery Nichols Platelet mean volume (Bld) [Entitic vol] 10.2 fL Normal 9.5-13.5 [facility] Comment on above: Performed By: #### C BC ####[facility] [address] [place], [place] [address]DrJeffery Nichols PLT 192 103/ul Normal 150-450 [facility] Comment on above: Performed By: #### C BC ####[facility] [address] [place], [place] [address]DrJeffery Nichols RBC 3.11 106/ul Critically low 4.70-6.10 [facility] Comment on above: Performed By: #### C BC ####[facility] [address] [place], [place] [address]DfJeffery Nichols WBC 4.5 103/ul Normal 4.0-11.0 [facility] Comment on above: Performed By: #### C BC ####[facility] [address] [place], [place] [address] STROKE HEAD WOon 05-16-20 21 [...] SHAY BERNSTEIN Date: 2021-05-16 14:45 Normal [facility] CTA NECK WO W CONon 05-16-20 [...] SHAY BERNSTEIN Date: 2021-05-16 16:53 Normal [facility] IRON AND TIBCon 05-16-2021 % SATURATION 16.2 % Normal [facility] Comment on above: Performed By: #### F ETIBC, B12FOL #### [facility] [address] [address] [address] Trevor Nichols Iron [Mass/Vol] 32.0 ug/dL Critically low 49.0-181.0 [facility] Comment on above: Performed By: #### F ETIBC, B12FOL #### [facility] [address] [address] [address] Trevor Nichols TIBC DIRECT 198.0 ug/dL Critically low 261.0-497.0 [facility] Comment on above: Performed By: #### F ETIBC, B12FOL #### [facility] [address] [address] [address] Trevor Nichols PROF CHEM 8 (BAS METB)on Anion gap [Moles/Vol] 14.9 mmol/L Normal [facility] Comment on above: Performed By: #### B MP #### [facility] [address] [address] [address] Trevor Nichols Calcium [Mass/Vol] 9.2 mg/dL Normal 8.4-10.2 [facility] Comment on above: Performed By: #### B MP #### [facility] [address] [address] [address] Trevor Nichols Chloride [Moles/Vol] 105 mmol/L Normal 98-107 [facility] Comment on above: Performed By: #### B MP #### [facility] [address] [place] [address] Dr. Trevor Nichols CO2 [Moles/Vol] 21.6 mmol/L Critically low 22.0-30.0 [facility] Comment on above: Performed By: #### B MP #### [facility] [address] [place] [address] Dr. Treovr Nichols Creatinine [Mass/Vol] 1.36 mg/dL Critically high 0.66-1.25 [facility] Comment on above: Performed By: #### B MP #### [facility] [address] [place] [address] Dr. Trevor Nichols EGFR-AF ANGOLAN >60 Normal >=60 [facility] Comment on above: Performed By: #### B MP #### [facility] [address] [place] [address] Dr. Trevor Nichols EGFR-NON AF ANGOLAN 51 mL/min/1.73m2 Critically low >=60 [facility] Comment on above: Performed By: #### B MP #### [facility] [address] [address] [address] Trevor Nichols Glucose [Mass/Vol] 206 mg/dL Critically high 74-106 [facility] Comment on above: Performed By: #### B MP #### [facility] [address] [place] [address] Dr. Trevor Nichols Potassium [Moles/Vol] 4.5 mmol/L Normal 3.4-5.0 [facility] Comment on above: Performed By: #### B MP #### [facility] [address] [place] [address] Dr. Trevor Nichols Sodium [Moles/Vol] 137 mmol/L Normal 137-145 [facility] Comment on above: Performed By: #### B MP #### [facility] [address] [place] [address] Dr. Trevor Nichols Urea nitrogen [Mass/Vol] 26.0 mg/dL Critically high 9.0-20.0 [facility] Comment on above: Performed By: #### B MP #### [facility] [address] [place] [address] Dr. Trevor Nichols Urea nitrogen/Creatinine [Mass ratio] 19.1 mg/mg Normal [facility] Comment on above: Performed By: #### B MP #### [facility] [address] [place] [address] Dr. Trevor Nichols VIT B12 AND FOLATEon 021 Cobalamin (Vitamin B12) [Mass/Vol] pg/mL Critically high 239.0-931.0 [facility] Comment on above: Performed By: #### F ETIBC, B12FOL #### [facility] [address] [place] [address] Dr. Trevor Nichols FOLATE 15.40 ng/mL Normal >=2.76 [facility] Comment on above: Performed By: #### F ETIBC, B12FOL #### [facility] [address] [place] [address] Dr. Trevor Nichols BNPon 05-15-2021 Natriuretic peptide B (Bld) [Mass/Vol] 379.0 pg/mL Normal <=900.0 [facility] Comment on above: Performed By: #### H STROPN, BNP, BMP #### [facility] [address] [place] [address] Dr. Trevor Nichols CBC W MANUAL DIFFon 05-15-20 21 ATYPICAL LYMPH # Normal [facility] Comment on above: Performed By: #### H STROPN, BNP, BMP #### [facility] [address] [place] [address] Dr. Trevor Nichols ATYPICAL LYMPH % Normal [facility] Comment on above: Performed By: #### H STROPN, BNP, BMP #### [facility] [address] [address] [address] Trevor Nichols BAND # 0.0 103/ul Normal 0.0-0.3 [facility] Comment on above: Performed By: #### H STROPN, BNP, BMP #### [facility] [address] [address] [address] Trevor Nichols BAND % 1 % Normal 0-5 [facility] Comment on above: Performed By: #### H STROPN, BNP, BMP #### [facility] [address] [place] [address] Dr. Trevor Nichols BASOM # 0.00 103/ul Normal 0.00-0.10 [facility] Comment on above: Performed By: #### H STROPN, BNP, BMP #### [facility] [address] [place] [address] Dr. Trevor Nichols BASOM % 0.0 % Critically low 0.2-2.0 [facility] Comment on above: Performed By: #### H STROPN, BNP, BMP #### [facility] [address] [place] [address] Dr. Trevor Nichols BLAST # Normal [facility] Comment on above: Performed By: #### H STROPN, BNP, BMP #### [facility] [address] [place] [address] Dr. Trevor Nichols BLAST % Normal [facility] Comment on above: Performed By: #### H STROPN, BNP, BMP #### [facility] [address] [place] [address] Dr. Trevor Nichols RBENDA CELLS SLIGHT Normal [facility] Comment on above: Performed By: #### H STROPN, BNP, BMP #### [facility] [address] [place] [address] Dr. Trevor Nichols CORRECTED WBC Normal 4.0-11.0 [facility] Comment on above: Performed By: #### H STROPN, BNP, BMP #### [facility] [address] [address] [address] Trevor Nichols EOS # 0.05 103/ul Normal 0.00-0.70 [facility] Comment on above: Performed By: #### H STROPN, BNP, BMP #### [facility] [address] [address] [address] Trevor Nichols EOS% 1.0 % Normal 0.9-7.0 [facility] Comment on above: Performed By: #### H STROPN, BNP, BMP #### [facility] [address] [address] [address] Trevor Nichols HCT 32.5 % Critically low 42.0-54.0 [facility] Comment on above: Performed By: #### H STROPN, BNP, BMP #### [facility] [address] [address] [address] Trevor Nichols HGB 10.5 g/dl Critically low 14.0-18.0 [facility] Comment on above: Performed By: #### H STROPN, BNP, BMP #### [facility] [address] [address] [address] Trevor Nichols HYPOCHROMASIA 2+ Normal [facility] Comment on above: Performed By: #### H STROPN, BNP, BMP #### [facility] [address] [address] [address] Trevor Nichols LYMPHM # 1.03 103/ul Critically low 1.20-3.80 [facility] Comment on above: Performed By: #### H STROPN, BNP, BMP #### [facility] [address] [address] [address] Trevor Nichols LYMPHM% 22.0 % Normal 20.5-60.0 [facility] Comment on above: Performed By: #### H STROPN, BNP, BMP #### [facility] [address] [address] [address] Trevor Nichols MACROCYTOSIS 2+ Normal [facility] Comment on above: Performed By: #### H STROPN, BNP, BMP #### [facility] [address] [address] [address] Trevor Nichols MCH 34.5 pg Critically high 25.9-34.0 [facility] Comment on above: Performed By: #### H STROPN, BNP, BMP #### [facility] [address] [address] [address] Trevor Nichols MCHC 32.3 g/dl Normal 29.9-35.2 [facility] Comment on above: Performed By: #### H STROPN, BNP, BMP #### [facility] [address] [address] [address] Trevor Nichols MCV 106.9 fL Critically high 80.0-94.0 [facility] Comment on above: Performed By: #### H STROPN, BNP, BMP #### [facility] [address] [address] [address] Trevor Nichols METAMYELOCYTE # Normal [facility] Comment on above: Performed By: #### H STROPN, BNP, BMP #### [facility] [address] [address] [address] Trevor Nichols METAMYELOCYTE % Normal [facility] Comment on above: Performed By: #### H STROPN, BNP, BMP #### [facility] [address] [address] [address] Trevor Nichols MONOM# 1.74 103/ul Critically high 0.30-0.80 [facility] Comment on above: Performed By: #### H STROPN, BNP, BMP #### [facility] [address] [address] [address] Trevor Nichols MONOM% 37.0 % Critically high 1.7-12.0 [facility] Comment on above: Performed By: #### H STROPN, BNP, BMP #### [facility] [address] [address] [address] Trevor Nichols MPV 10.8 fL Normal 9.5-13.5 [facility] Comment on above: Performed By: #### H STROPN, BNP, BMP #### [facility] [address] [address] [address] Tervor Nichols MYELOCYTE # Normal [facility] Comment on above: Performed By: #### H STROPN, BNP, BMP #### [facility] [address] [address] [address] Trevor Nichols MYELOCYTE % Normal [facility] Comment on above: Performed By: #### H STROPN, BNP, BMP #### [facility] [address] [address] [address] Trevor Nichols NRBC Normal [facility] Comment on above: Performed By: #### H STROPN, BNP, BMP #### [facility] [address] [address] [address] Trevor Nichols PLT 222 103/ul Normal 150-450 [facility] Comment on above: Performed By: #### H STROPN, BNP, BMP #### [facility] [address] [place] [address] Dr. Trevor Nichols POIKILOCYTOSIS 2+ Normal [facility] Comment on above: Performed By: #### H STROPN, BNP, BMP #### [facility] [address] [place] [address] Dr. Trevor Nichols RBC 3.04 106/ul Critically low 4.70-6.10 [facility] Comment on above: Performed By: #### H STROPN, BNP, BMP #### [facility] [address] [place] [address] Dr. Trevor Nichols RDW 15.6 % Critically high 11.0-15.0 [facility] Comment on above: Performed By: #### H STROPN, BNP, BMP #### [facility] [address] [place] [address] Dr. Trevor Nichols SEG # 1.83 103/ul Normal 1.40-6.50 [facility] Comment on above: Performed By: #### H STROPN, BNP, BMP #### [facility] [address] [address] [address] Trevor Nichols SEG % 39.0 % Critically low 43.0-75.0 [facility] Comment on above: Performed By: #### H STROPN, BNP, BMP #### [facility] [address] [address] [address] Trevor Nichols TARGET CELLS 1+ Normal [facility] Comment on above: Performed By: #### H STROPN, BNP, BMP #### [facility] [address] [address] [address] Trevor Nichols TEAR DROP CELLS SLIGHT Normal [facility] Comment on above: Performed By: #### H STROPN, BNP, BMP #### [facility] [address] [address] [address] Trevor Nichols WBC 4.7 103/ul Normal 4.0-11.0 [facility] Comment on above: Performed By: #### H STROPN, BNP, BMP #### [facility] [address] [address] [address] Trevor Nichols CTA CHEST WO W [...] RAY SAWANT Date: 2021-05-15 11:15 Normal [facility] CULTURE BLOODon 05-15-2021 Microscopic examination of blood, culture Culture Observations: No growth at 5 days. Normal [facility] Comment on above: Performed By: #### H CHASITY BNP, BMP #### [facility] [address] [address] [address] Trevor Nichols Covid-19 PCR (CVDTB)on 04-18 SARS-CoV-2 (COVID-19) RNA DEVIN+probe Ql (Unsp spec) Not detected Normal NOT DETECTED [facility] Comment on above: Result Comment: When diagnostic testing is negative, the possibility of a false negative should be considered in the context of a patient's recent exposures and the presence of clinical signs and symptoms consistent with SARS-CoV-2. This test is not yet approved or cleared by the [place] Food and Drug Administration (FDA). This test was developed by [employer], [place], [place]. The performance characteristics of this test were validated by [facility]. The results are not intended to be used as the sole means for clinical diagnosis or patient management decisions. [facility] is authorized under Clinical Laboratory Improvement Amendments (CLIA) to perform high- complexity testing. Performed By: #### H CHASITY BNP, BMP #### [facility] [address] [address] [address] Trevor Nichols FREE T3on 05-15-2021 FREE T3 1.66 pg/mlL Critically low 2.77-5.27 [facility] Comment on above: Performed By: #### T SH, FT3 ####[facility] [address] [address]DrJeffery Nichols FREE T4on 05-15-2021 Free T4 [Mass/Vol] 1.06 ng/dL Normal 0.78-2.19 [facility] Comment on above: Performed By: #### F T4 ####[facility] [address] [address]DrJeffery Nichols LACTATE/LACTIC ACIDon 2020 Lactate [Moles/Vol] 1.2 mmol/L Normal 0.7-2.0 [facility] Comment on above: Performed By: #### L ACT ####[facility] [address] [address]Dr. Trevor Nichols Lactate [Moles/Vol] 1.5 mmol/L Normal 0.7-2.0 [facility] Comment on above: Performed By: #### L ACT ####[facility] [address] [address]Dr. Trevor Nichols PROF CHEM 8 (BAS METB)on Anion gap [Moles/Vol] 12.5 mmol/L Normal [facility] Comment on above: Performed By: #### H STROPN, BNP, BMP #### [facility] [address] [address] [address] Trevor Nichols Calcium [Mass/Vol] 8.4 mg/dL Normal 8.4-10.2 [facility] Comment on above: Performed By: #### H STROPN, BNP, BMP #### [facility] [address] [address] [address] Trevor Nichols Chloride [Moles/Vol] 106 mmol/L Normal 98-107 [facility] Comment on above: Performed By: #### H STROPN, BNP, BMP #### [facility] [address] [address] [address] Trevor Nichols CO2 [Moles/Vol] 24.8 mmol/L Normal 22.0-30.0 [facility] Comment on above: Performed By: #### H STROPN, BNP, BMP #### [facility] [address] [address] [address] Trevor Nichols Creatinine [Mass/Vol] 1.37 mg/dL Critically high 0.66-1.25 [facility] Comment on above: Performed By: #### H STROPN, BNP, BMP #### [facility] [address] [address] [address] Trevor Nichols EGFR-AF ANGOLAN >60 Normal >=60 [facility] Comment on above: Performed By: #### H STROPN, BNP, BMP #### [facility] [address] [address] [address] Trevor Nichols EGFR-NON AF ANGOLAN 51 mL/min/1.73m2 Critically low >=60 [facility] Comment on above: Performed By: #### H STROPN, BNP, BMP #### [facility] [address] [address] [address] Trevor Nichols Glucose [Mass/Vol] 114 mg/dL Critically high 74-106 [facility] Comment on above: Performed By: #### H STROPN, BNP, BMP #### [facility] [address] [address] [address] Trevor Nichols Potassium [Moles/Vol] 4.4 mmol/L Normal 3.4-5.0 [facility] Comment on above: Performed By: #### H STROPN, BNP, BMP #### [facility] [address] [address] [address] Trevor Nichols Sodium [Moles/Vol] 139 mmol/L Normal 137-145 [facility] Comment on above: Performed By: #### H STROPN, BNP, BMP #### [facility] [address] [address] [address] Trevor Nichols Urea nitrogen [Mass/Vol] 20.0 mg/dL Normal 9.0-20.0 [facility] Comment on above: Performed By: #### H STROPN, BNP, BMP #### [facility] [address] [address] [address] Trevor Nichols Urea nitrogen/Creatinine [Mass ratio] 14.6 mg/mg Normal [facility] Comment on above: Performed By: #### H STROPN, BNP, BMP #### [facility] [address] [address] [address] Trevor Nichols TROPONIN, HIGH SENSITIVITYon 05-15-2021 HSTROP 7.1 pg/mL Normal 4.0-42.2 [facility] Comment on above: Result Comment: CUT- OFF POINTS HAVE BEEN ESTABLISHED BASED ON THE FOURTH UNIVERSAL DEFINITIONS OF MYOCARDIAL INFARCTION. THE UPPER REFERENCE LIMIT (URL) OF TROPONIN, DEFINED THE 99TH PERCENTILE OF cTnI DISTRIBUTION IN A REFERENCE POPULATION, HAS BEEN CONFIRMED THE DECISION THRESHOLD FOR MO DIAGNOSIS. Performed By: #### H STROPN, BNP, BMP #### [facility] [address] [address] [address] Trevor Nichols TSHon 05-15-2021 TSH 1.972 uIU/mL Normal 0.470-4.680 [facility] Comment on above: Performed By: #### T SH, FT3 ####[facility] [address] [id number]. Trevor Nichols TSH RANGE SEE BELOW Normal [facility] Comment on above: Result Comment: <0.3 4 UIU/ml HYPERTHYROID 0.34-5.60 UIU/ml EUTHYROID >5.60 UIU/ml HYPOTHYROID Performed By: #### T SH, FT3 ####[facility] [address] [address]Dr. Trevor Nichols D-DIMERon 05-14-2021 D-DIMER 0.76 mg/L FEU Critically high 0.19-0.50 [facility] Comment on above: Performed By: #### H STROPN, BNP, BMP #### [facility] [address] [address] [address] Trevor Nichols D-DIMER COMMENTS SEE BELOW Normal [facility] Comment on above: Result Comment: Incr [...] By: #### H STROPN, BNP, BMP #### [facility] [address] [address] [address] Trevor Nichols PROF CHEM 8 (BAS METB)on Anion gap [Moles/Vol] 12.0 mmol/L Normal [facility] Comment on above: Performed By: #### H STROPN, BNP, BMP #### [facility] [address] [address] [address] Trevor Nichols Calcium [Mass/Vol] 8.5 mg/dL Normal 8.4-10.2 [facility] Comment on above: Performed By: #### H STROPN, BNP, BMP #### [facility] [address] [address] [address] Trevor Nichols Chloride [Moles/Vol] 106 mmol/L Normal 98-107 [facility] Comment on above: Performed By: #### H STROPN, BNP, BMP #### [facility] [address] [place] [address] Dr. Trevor Nichols CO2 [Moles/Vol] 25.0 mmol/L Normal 22.0-30.0 [facility] Comment on above: Performed By: #### H STROPN, BNP, BMP #### [facility] [address] [place] [address] Dr. Trevor Nichols Creatinine [Mass/Vol] 1.61 mg/dL Critically high 0.66-1.25 [facility] Comment on above: Performed By: #### H STROPN, BNP, BMP #### [facility] [address] [place] [address] Dr. Trevor Nichols EGFR-AF ANGOLAN 51 mL/min/1.73m2 Critically low >=60 [facility] Comment on above: Performed By: #### H STROPN, BNP, BMP #### [facility] [address] [place] [address] Dr. Trevor Nichols EGFR-NON AF ANGOLAN 42 mL/min/1.73m2 Critically low >=60 [facility] Comment on above: Performed By: #### H STROPN, BNP, BMP #### [facility] [address] [address] [address] Trevor Nichols Glucose [Mass/Vol] 115 mg/dL Critically high 74-106 [facility] Comment on above: Performed By: #### H STROPN, BNP, BMP #### [facility] [address] [address] [address] Trevor Nichols Potassium [Moles/Vol] 4.0 mmol/L Normal 3.4-5.0 [facility] Comment on above: Performed By: #### H STROPN, BNP, BMP #### [facility] [address] [address] [address] Trevor Nichols Sodium [Moles/Vol] 139 mmol/L Normal 137-145 [facility] Comment on above: Performed By: #### H STROPN, BNP, BMP #### [facility] [address] [address] [address] Trevor Nichols Urea nitrogen [Mass/Vol] 20.0 mg/dL Normal 9.0-20.0 [facility] Comment on above: Performed By: #### H STROPN, BNP, BMP #### [facility] [address] [address] [address] Trevor Nichols Urea nitrogen/Creatinine [Mass ratio] 12.4 mg/mg Normal [facility] Comment on above: Performed By: #### H CHASITY, BNP, BMP #### [facility] [address] [address] [address] Trevor Nichols PROF CHEM 8 (BAS METB)on Anion gap [Moles/Vol] 19.5 mmol/L Normal [facility] Comment on above: Performed By: #### B MP ####[facility] [address] [address]DrJeffery Nichols Calcium [Mass/Vol] 9.1 mg/dL Normal 8.4-10.2 [facility] Comment on above: Performed By: #### B MP ####[facility] [address] [address]Dr. Trevor Nichosl Chloride [Moles/Vol] 104 mmol/L Normal 98-107 [facility] Comment on above: Performed By: #### B MP ####[facility] [address] [address]DrJeffery Nichols CO2 [Moles/Vol] 19.6 mmol/L Critically low 22.0-30.0 [facility] Comment on above: Performed By: #### B MP ####[facility] [address] [address]Dr. Trevor Nichols Creatinine [Mass/Vol] 1.69 mg/dL Critically high 0.66-1.25 [facility] Comment on above: Performed By: #### B MP ####[facility] [address] [address]Dr. Trevor Nichols EGFR-AF ANGOLAN 48 mL/min/1.73m2 Critically low >=60 [facility] Comment on above: Performed By: #### B MP ####[facility] [address] [address]Dr. Trevor Nichols EGFR-NON AF ANGOLAN 40 mL/min/1.73m2 Critically low >=60 [facility] Comment on above: Performed By: #### B MP ####[facility] [address] [place], [place] [address]Dr. Trevor Nichols Glucose [Mass/Vol] 95 mg/dL Normal 74-106 [facility] Comment on above: Performed By: #### B MP ####[facility] [address] [address]Dr. Trevor Nichols Potassium [Moles/Vol] 5.4 mmol/L Critically high 3.4-5.0 [facility] Comment on above: Performed By: #### B MP ####[facility] [address] [place], [place] [address]Dr. Trevor Nichols Sodium [Moles/Vol] 138 mmol/L Normal 137-145 [facility] Comment on above: Performed By: #### B MP ####[facility] [address] [address]Dr. Trevor Nichols Urea nitrogen [Mass/Vol] 26.0 mg/dL Critically high 9.0-20.0 [facility] Comment on above: Performed By: #### B MP ####[facility] [address] [place], [place] [address]Dr. Trevor Simone Urea nitrogen/Creatinine [Mass ratio] 15.4 mg/mg Normal [facility] Comment on above: Performed By: #### B MP ####[facility] Sm[address] [place], [place] [address]Dr. Trevor Nichols BNPon 04-29-2021 Natriuretic peptide B (Bld) [Mass/Vol] 421.0 pg/mL Normal <=900.0 [facility] Comment on above: Performed By: #### B ROTARY FURNACE TENDER, MG ####[facility] Rytt[address] [place] [address] [place] CBC W MANUAL DIFFon 04-29-20 21 ATYPICAL LYMPH # 0.19 103/ul Normal [facility] Comment on above: Performed By: #### C JOBY ####[facility] [address] [place] [address] [place]#### PERSMR ####[facility] Zowgcusbxs[address] [place], [place] [address]Dr. Trevor Nichols ATYPICAL LYMPH % 4 % Normal [facility] Comment on above: Performed By: #### C JOBY ####[facility] [address] [place] [address] [place]#### PERSMR ####[facility] [address] [place], [place] [address]Dr. Trevor Nichols BAND # 0.2 103/ul Normal 0.0-0.3 [facility] Comment on above: Performed By: #### C JOBY ####[facility] [address] [place] [address] [place]#### PERSMR ####[facility] [address] [place], [place] [address]Dr. Yilan Nichols BAND % 5 % Normal 0-5 [facility] Comment on above: Performed By: #### C JOBY ####[facility] [address]ceph[address] [place] [address] [place]#### PERSMR ####[facility] Euoqbvuelx[address] [place], [place] [address]Dr. Trevor Nichols BASOM # 0.05 103/ul Normal 0.00-0.10 [facility] Comment on above: Performed By: #### C JOBY ####[facility] [address] [place], [place] [address] [place]#### PERSMR ####[facility] [address] [address]Dr. Trevor Nichols BASOM % 1.0 % Normal 0.2-2.0 [facility] Comment on above: Performed By: #### C JOBY ####[facility] [address] [place] [address] [place]#### PERSMR ####[facility] [address] [address]Dr. Trevor Nichols BLAST # Normal [facility] Comment on above: Performed By: #### C JOBY ####[facility] [address]tsfpkiw[address] [place] [address] [place]#### PERSMR ####[facility] Pns[address]lwv[address] [place], [place] [address]Dr. Trevor Nichols BLAST % Normal [facility] Comment on above: Performed By: #### C JOBY ####[facility] [address] [place] [address] [place]#### PERSMR ####[facility] Uff[address] [place], [place] [address]Dr. Trevor Nichols CORRECTED WBC Normal 4.0-11.0 [facility] Comment on above: Performed By: #### C JOBY ####[facility] [address]vhceeav[address] [place] [address] [place]#### PERSMR ####[facility] Qzvhokysmb[address] [place], [place] [address]Dr. Trevor Nichols EOS # 0.00 103/ul Normal 0.00-0.70 [facility] Comment on above: Performed By: #### C JOBY ####[facility] Az[address] [place] [address] [place]#### PERSMR ####[facility] Tinokc[address]as[address] [place], [place] [address]Dr. Trevor Nichols EOS% 0.0 % Critically low 0.9-7.0 [facility] Comment on above: Performed By: #### C JOBY ####[facility] [address] [place] [address] [place]#### PERSMR ####[facility] Cocfzmgzrd[address] [place], [place] [address]Dr. Trevor Nichols HCT 35.7 % Critically low 42.0-54.0 [facility] Comment on above: Performed By: #### C JOBY ####[facility] Lq[address]eglx[address] [place] [address] [place]#### PERSMR ####[facility] H[address] [place], [place] [address]Dr. Trevor Nichols HGB 11.7 g/dl Critically low 14.0-18.0 [facility] Comment on above: Performed By: #### Brodie HEMPHILL ####[facility] Zfc[address]zeys[address] [place] [address] [place]#### PERSMR ####[facility] Kbuqdhlbyd[address] [place], [place] [address]Dr. Trevor Nichols LYMPHM # 0.72 103/ul Critically low 1.20-3.80 [facility] Comment on above: Performed By: #### Brodie HEMPHILL ####[facility] [address]po[address] [place] [address] [place]#### PERSMR ####[facility] U[address]unqyq[address] [place], [place] [address]Dr. Trevor Nichols LYMPHM% 15.0 % Critically low 20.5-60.0 [facility] Comment on above: Performed By: #### Brodie HEMPHILL ####[facility] Rljedutxvb[address] [place] [address] [place]#### PERSMR ####[facility] Rasbwtuucn[address] [place], [place] [address]Dr. Trevor Nichols MCH 34.4 pg Critically high 25.9-34.0 [facility] Comment on above: Performed By: #### C JOBY ####[facility] [address]whnxf[address] [place] [address] [place]#### PERSMR ####[facility] [address] [address]Dr. Trevor Nichols MCHC 32.8 g/dl Normal 29.9-35.2 [facility] Comment on above: Performed By: #### C JOBY ####[facility] Z[address] [place] [address] [place]#### PERSMR ####[facility] Bvokztkfms[address] [place], [place] [address]Dr. Trevor Nichols MCV 105.0 fL Critically high 80.0-94.0 [facility] Comment on above: Performed By: #### C JOBY ####[facility] Y[address] [place] [address] [place]#### PERSMR ####[facility] Rnnrwncf[address] [place], [place] [address]Dr. Trevor Nichols METAMYELOCYTE # Normal [facility] Comment on above: Performed By: #### C JOBY ####[facility] [address] [place] [address] [place]#### PERSMR ####[facility] F[address]vnfjcnv[address] [place], [place] [address]Dr. Trevor Nichols METAMYELOCYTE % Normal [facility] Comment on above: Performed By: #### C JOBY ####[facility] Esotjlvcrq[address] [place] [address] [place]#### PERSMR ####[facility] Mayetmefrx[address] [place], [place] [address]Dr. Trevor Nichols MONOM# 1.25 103/ul Critically high 0.30-0.80 [facility] Comment on above: Performed By: #### C JOBY ####[facility] [address]bxchlb[address] [place] [address] [place]#### PERSMR ####[facility] Retolbiymy[address] [place], [place] [address]Dr. Trevor Nichols MONOM% 26.0 % Critically high 1.7-12.0 [facility] Comment on above: Performed By: #### C JOBY ####[facility] [address] [address]Gerken [place]#### PERSMR ####[facility] [address] [address]Dr. Trevor Nichols MPV 10.5 fL Normal 9.5-13.5 [facility] Comment on above: Performed By: #### Brodie HEMPHILL ####[facility] [address] [address]Gerken [place]#### PERSMR ####[facility] [address]qopa[address] [address]Dr. Trevor Nichols MYELOCYTE # Normal [facility] Comment on above: Performed By: #### Brodie HEMPHILL ####[facility] Y[address]wquey[address] [place] [address] [place]#### PERSMR ####[facility] [address] [address]Dr. Trevor Nichols MYELOCYTE % Normal [facility] Comment on above: Performed By: #### Brdoie HEMPHILL ####[facility] K[address] [place] [address] [place]#### PERSMR ####[facility] Zquxynscrz[address] [place], [place] [address]Dr. Trevor Nichols NRBC Normal [facility] Comment on above: Performed By: #### Brodie HEMPHILL ####[facility] T[address] [place], [place] [address]Gerken [place]#### PERSMR ####[facility] N[address]xiaphj[address] [place], [place] [address]Dr. Trevor Nichols PATH REVIEW INDICATED Normal [facility] Comment on above: Performed By: #### Brodie HEMPHILL ####[facility] Opkscmfu[address] [place] [address] [place]#### PERSMR ####[facility] Tgqjalimaq[address] [place], [place] [address]Dr. Trevor Nichols PLT 158 103/ul Normal 150-450 [facility] Comment on above: Performed By: #### Brodie HEMPHILL ####[facility] [address]weswjhj[address] [place]#### PERSMR ####[facility] [address] [address]Dr. Trevor Nichols RBC 3.40 106/ul Critically low 4.70-6.10 [facility] Comment on above: Performed By: #### Brodie HEMPHILL ####[facility] K[address]woom[address] [place]#### PERSMR ####[facility] [address] [address]Dr. Trevor Nichols RDW 15.6 % Critically high 11.0-15.0 [facility] Comment on above: Performed By: #### Brodie HEMPHILL ####[facility] Laejyxdmlb[address] [place]#### PERSMR ####[facility] [address]kywf[address] [address]Dr. Trevor Nichols SEG # 2.35 103/ul Normal 1.40-6.50 [facility] Comment on above: Performed By: #### Brodie HEMPHILL ####[facility] [address]igtr[address] [place] [address] [place]#### PERSMR ####[facility] Cl[address]qiab[address] [address]Dr. Trevor Nichols SEG % 49.0 % Normal 43.0-75.0 [facility] Comment on above: Performed By: #### Brodie HEMPHILL ####[facility] Wuuodgfmvo6[address] [place]#### PERSMR ####[facility] [address] [address]Dr. Trevor Nichols WBC 4.8 103/ul Normal 4.0-11.0 [facility] Comment on above: Performed By: #### C JOBY ####[facility] [address] [place] [address] [place]#### PERSMR ####[facility] [address] [address]Dr. Trevor Nichols MAGNESIUMon 04-29-2021 Magnesium [Mass/Vol] 2.4 mg/dL Critically high 1.6-2.3 [facility] Comment on above: Performed By: #### B ROTARY FURNACE TENDER, MG ####[facility] Zufch[address]onzf[address] [place] PERIPHERAL SMEARon Pathologist Cyto stain Nom (Cvx/Vag) [ID] DR. BHARTI PARDO Normal [facility] Comment on above: Result Comment: Kate pheral blood smear reveals isolated monocytosis with unremarkable morphology. The neutrophils and platelets are morphologically unremarkable. No atypical lymphocytes or blasts are noted. A reactive process is favored. Clinical correlation is suggested. Dr Bharti Pardo 05/01/2021 Performed By: #### C JOBY ####[facility] [address] [place] [address] [place]#### PERSMR ####[facility] Kr[address]ax[address] [place], [place] [address]DrJeffery Nichols VITAMIN D 25 OHon 04-29-2021 VIT D 25-OH 71.4 ng/mL Normal [facility] Comment on above: Performed By: #### V ITAD ####[facility] [address]ub[address]raqc[address] [place] [address] [place] VIT D RANGES SEE BELOW Normal [facility] Comment on above: Result Comment: <20 ng/mL Vit D deficient 20 - <30 ng/mL Vit D insufficient 30 - 100 ng/mL Vit D sufficient >100 ng/mL Potential Toxicity Performed By: #### V ITAD ####[facility] [address] [place] [address] [place] Marie POC GLUCOSE LABon 06-30-2020 Glucose [Mass/Vol] 108 mg/dL High 70-100 [facility] Comment on above: Performed By: #### 4 1000, [id number] #### [facility] [address] [place] [address], [facility] Glucose [Mass/Vol] 165 mg/dL High 70-100 [facility] Comment on above: Performed By: #### 4 1000, [id number] #### [facility] [address] C REACTIVE PROTEINon 020 CRP [Mass/Vol] 27.8 mg/L High 0.0-7.0 [facility] Comment on above: Order Comment: No: D o not add to previous draw Performed By: #### 4 1000, 54103, 88667 #### [facility] [address] [place] [address], [facility] CBC COMPLETE BLOOD COUNTon 08-29-2019 Erythrocyte distribution width (RBC) [Ratio] 14.3 % Normal 11.5-15.0 [facility] Comment on above: Order Comment: No: D o not add to previous draw Performed By: #### 4 1000, [id number] #### [facility] [address] [place] [address], [facility] Hematocrit (Bld) [Volume fraction] 34.7 % Low 39.0-50.0 [facility] Comment on above: Order Comment: No: D o not add to previous draw Performed By: #### 4 1000, [id number] #### [facility] [address] [place] [address], [facility] Hemoglobin (Bld) [Mass/Vol] 11.6 g/dL Low 13.0-17.0 [facility] Comment on above: Order Comment: No: D o not add to previous draw Performed By: #### 4 1000, [id number] #### [facility] [address] [place] [address], [facility] MCH (RBC) [Entitic mass] 35.5 pg High 27.0-33.0 [facility] Comment on above: Order Comment: No: D o not add to previous draw Performed By: #### 4 1000, 79431 #### [facility] [address] [place] [address], [facility] MCHC (RBC) [Mass/Vol] 33.4 g/dL Normal 32.0-35.0 [facility] Comment on above: Order Comment: No: D o not add to previous draw Performed By: #### 4 1000, 28980 #### [facility] [address] [place] [address], [facility] MCV (RBC) [Entitic vol] 106.1 fL High 82.0-98.0 [facility] Comment on above: Order Comment: No: D o not add to previous draw Performed By: #### 4 1000, 15418 #### [facility] [address] [place] [address], [facility] Nucleated RBC/100 WBC (Bld) [Ratio] 0 % Normal 0-0 [facility] Comment on above: Order Comment: No: D o not add to previous draw Performed By: #### 4 1000, [id number] #### [facility] [facility] [address] [address], [facility] PLAT CNT 150 10*3/uL Normal 150-400 [facility] Comment on above: Order Comment: No: D o not add to previous draw Performed By: #### 4 1000, 46630 #### [facility] [address] [address], [facility] RBC (Bld) [#/Vol] 3.27 10*6/uL Low 4.20-5.70 [facility] Comment on above: Order Comment: No: D o not add to previous draw Performed By: #### 4 1000, 51422 #### [facility] [address] [address], [facility] WBC (Bld) [#/Vol] 5.86 10*3/uL Normal 4.00-10.60 [facility] Comment on above: Order Comment: No: D o not add to previous draw Performed By: #### 4 1000, 07038 #### [facility] [address] CPKon 06-29-2020 CK [Catalytic activity/Vol] 45 U/L Normal 30-223 [facility] Comment on above: Order Comment: Unkno wn Performed By: #### 9 9909, 90411, 01242, 04409 #### [address] BRAIN WO CONTRASTon 06-29 CT BRAIN WO CONTRAST [facility] Department of Radiology [address] [place] [address] Patient Name: CHIKI JUAREZ : 1945 Sex: M Age: Race: White Pt. Location: [id number] Patient Status: I Ordered Date: 06/29/2020 9:20:00 [...] region. Electronically signed: Aleta Armas. Transcribed by: [id number], User Resident: Electronically Signed by: ALETA ARMAS @ 06/29/2020 07:16 PM Normal [facility] Comment on above: Order Comment: No: D o not add to previous draw D DIMER TESTon 06-29-2020 D-DIMER TEST 1.44 mcg/mL FEU High 0.27-0.49 [facility] Comment on above: Order Comment: No: D o not add to previous draw Result Comment: D-Di fide values of less than 0.50 ug/ml (FEU) are considered to be a negative predictor of thrombosis. However, the D-Dimer result should be used in conjunction with pretest probability and should not be used alone to diagnose a thrombotic event. Performed By: #### 4 1000, 39237, 68739 #### [facility] 3000 [facility]. [address] FERRITINon 06-29-2020 Ferritin [Mass/Vol] 271 ng/mL Normal 24-336 [facility] Comment on above: Order Comment: Unkno wn Performed By: #### 9 9909, 25758, 05577, 88381 #### [facility] [address] [facility] [address] LDH BLOODon 06-29-2020 LDH 148 Units/L Normal 140-271 [facility] Comment on above: Order Comment: Unkno wn Performed By: #### 9 9909, 95665, 61410, 99242 #### [facility] 3000 [facility]. [address] LIPID PROFILEon 06-29-2020 Cholesterol [Mass/Vol] 176 mg/dL Normal 120-200 [facility] Comment on above: Order Comment: No: D o not add to previous draw Result Comment: CHOL ESTEROL REFERENCE RANGE: 20 YEARS AND OLDER CARDIOVASCULAR RISK Less than 200 mg/dl Low Risk 200 to 239 mg/dl Borderline Risk 240 mg/dl and greater High Risk Performed By: #### 4 1000, , 01868 #### [facility] [address] [place] [address], [place] Cholesterol in HDL [Mass/Vol] 39 mg/dL Normal 23-92 [facility] Comment on above: Order Comment: No: D o not add to previous draw Result Comment: Slig ht variation in normal range could be due to gender and/or age. HDL CHOLESTEROL REFERENCE RANGE: 20 years and older Cardiovascular Risk > or =60 mg/dL Desirable 40 TO 59 mg/dL Low Risk <40 mg/dL High Risk Performed By: #### 4 1000, , 15895 #### [facility] [address] [place] [address], [place] Cholesterol in LDL [Mass/Vol] 100 mg/dL Normal 0-130 [facility] Comment on above: Order Comment: No: D o not add to previous draw Result Comment: LDL IS A CALCULATION LDL IS ONLY VALID IF THE TRIG IS LESS THAN 400. Performed By: #### 4 1000, , 71607 #### [facility] [address] [facility] [place] [address], [place] Cholesterol.total/Ch olesterol in HDL [Mass ratio] 4.5 {ratio} Normal 0.0-4.5 [facility] Comment on above: Order Comment: No: D o not add to previous draw Performed By: #### 4 1000, , 85441 #### [facility] [address] [place] [address], [place] NON-HDL CHOLESTEROL 137 mg/dL Normal [facility] Comment on above: Order Comment: No: D o not add to previous draw Performed By: #### 4 1000, , 55451 #### [facility] [address] [place] [address], [place] Triglyceride [Mass/Vol] 187 mg/dL High 40-149 [facility] Comment on above: Order Comment: No: D o not add to previous draw Result Comment: TRIG LYCERIDE REFERENCE RANGE: 20 YEARS AND OLDER CARDIOVASCULAR RISK LESS THAN 150 mg/dl LOW RISK 150 TO 199 mg/dl BORDERLINE RISK 200 mg/dl AND GREATER HIGH RISK Performed By: #### 4 1000, 65510, 02384 #### [facility] [address] [place] [address], [facility] VLDL CHOL 37 mg/dL Normal 0-40 [facility] Comment on above: Order Comment: No: D o not add to previous draw Performed By: #### 4 1000, 95385, 81158 #### [facility] [address] [place] [address], [facility] LIVER BATTERYon 06-29-2020 Albumin [Mass/Vol] 3.4 g/dL Low 3.5-5.7 [facility] Comment on above: Order Comment: Unkno wn Performed By: #### 9 9909, 58246, 47162, 09686 #### [facility] [address] [place] [address], [place] ALKALINE PHOSPH 60 IU/L Normal 34-104 [facility] Comment on above: Order Comment: Unkno wn Performed By: #### 9 9909, 37753, 07542, 38590 #### [facility] [address] [place] [address], [place] ALT [Catalytic activity/Vol] 8 U/L Normal 7-52 [facility] Comment on above: Order Comment: Unkno wn Performed By: #### 9 9909, 58524, 53167, 42255 #### [facility] [address] [place] [address], [place] AST [Catalytic activity/Vol] 11 U/L Low 13-39 [facility] Comment on above: Order Comment: Unkno wn Performed By: #### 9 9909, 88068, 13643, 55678 #### [facility] [address] [place] [address], [place] Bilirubin [Mass/Vol] 0.5 mg/dL Normal 0.3-1.0 [facility] Comment on above: Order Comment: Unkno wn Performed By: #### 9 9909, 17373, 30065, 56981 #### [facility] [address] [place] [address], [place] Bilirubin.direct [Mass/Vol] 0.1 mg/dL Normal 0.0-0.2 [facility] Comment on above: Order Comment: Unkno wn Performed By: #### 9 9909, 00682, 96603, 42076 #### [facility] [address] [place] [address], [place] Protein [Mass/Vol] 5.8 g/dL Low 6.0-8.3 [facility] Comment on above: Order Comment: Unkno wn Performed By: #### 9 9909, 31234, 20627, 35505 #### [facility] [address] [place] [address], [place] POC GLUCOSE LABon 06-29-2020 Glucose [Mass/Vol] 112 mg/dL High 70-100 [facility] Comment on above: Performed By: #### 4 1000, 11167 #### [facility] [address] [place] [address], [place] Glucose [Mass/Vol] 105 mg/dL High 70-100 [facility] Comment on above: Performed By: #### 4 1000, 38847 #### [facility] [address] [place] [address], [place] Glucose [Mass/Vol] 94 mg/dL Normal 70-100 [facility] Comment on above: Performed By: #### 4 1000, 65924, 55412 #### [facility] [address] [place] [address], [place] Glucose [Mass/Vol] 121 mg/dL High 70-100 [facility] Comment on above: Performed By: #### 4 1000, 98552 #### [address] PORTABLE CHEST 1 VIEWon 06-17 PORTABLE CHEST 1 VIEW [facility] Department of Radiology [address] [place] [id number] Patient Name: CHIKI JUAREZ : 1945 Sex: M Age: Race: White Pt. Location: [id number] Patient Status: I Ordered Date: 06/29/2020 5:45:00 [...] placement. Electronically signed: Aleta Armas. Transcribed by: [email or web address], User Resident: Electronically Signed by: ALETA ARMAS @ 06/29/2020 08:15 PM Normal [facility] Comment on above: Order Comment: No: D o not add to previous draw BASIC METABOLIC PANELon 11 Calcium [Mass/Vol] 8.8 mg/dL Normal 8.6-10.3 [facility] Comment on above: Order Comment: No: D o not add to previous draw Performed By: #### 4 1000, 71348, 60451 #### [facility] [address] [place] [address], [place] Chloride [Moles/Vol] 102 mmol/L Normal 98-107 [facility] Comment on above: Order Comment: No: D o not add to previous draw Performed By: #### 4 1000, 70090, 60447 #### [facility] [address] [place] [address], [place] CO2 [Moles/Vol] 24 mmol/L Normal 21-31 [facility] Comment on above: Order Comment: No: D o not add to previous draw Performed By: #### 4 1000, 31203, 77948 #### [facility] [address] [place] [address], [place] Creatinine [Mass/Vol] 1.31 mg/dL High 0.70-1.30 [facility] Comment on above: Order Comment: No: D o not add to previous draw Performed By: #### 4 1000, 34399, 79678 #### [facility] [address] [place] [address], [place] GFR/1.73 sq M predicted among blacks MDRD (S/P/Bld) [Vol rate/Area] mL/min/{1.73_m2} Normal >60 [facility] Comment on above: Order Comment: No: D o not add to previous draw Result Comment: Calc ulation may not be valid for patients over 70 years Performed By: #### 4 1000, 90061, 59466 #### [facility] [address] [place] [address], [place] GFR/1.73 sq M predicted among non-blacks MDRD (S/P/Bld) [Vol rate/Area] 54 ml/min/1.73sq m Abnormal >60 [facility] Comment on above: Order Comment: No: D o not add to previous draw Result Comment: Calc ulation may not be valid for patients over 70 years Performed By: #### 4 1000, 57383, 99036 #### [facility] [address] [place] [address], [place] Glucose [Mass/Vol] 96 mg/dL Normal 70-100 [facility] Comment on above: Order Comment: No: D o not add to previous draw Performed By: #### 4 1000, 47873, 54454 #### [facility] [address] [place] [address], [place] Potassium [Moles/Vol] 4.3 mmol/L Normal 3.5-5.1 [facility] Comment on above: Order Comment: No: D o not add to previous draw Performed By: #### 4 1000, 03516, 80016 #### [facility] [address] [place] [address], [place] Sodium [Moles/Vol] 133 mmol/L Low 136-145 [facility] Comment on above: Order Comment: No: D o not add to previous draw Performed By: #### 4 1000, 70574, 48958 #### [facility] [address] [place] [address], [place] Urea nitrogen [Mass/Vol] 26 mg/dL High 7-25 [facility] Comment on above: Order Comment: No: D o not add to previous draw Performed By: #### 4 1000, 64099, 57582 #### [facility] [address] [place] [address], [place] CBC COMPLETE BLOOD COUNTon 08-28-2019 Erythrocyte distribution width (RBC) [Ratio] 14.4 % Normal 11.5-15.0 [facility] Comment on above: Order Comment: No: D o not add to previous draw Performed By: #### 4 1000, , 70424 #### [facility] [address] [place] [address], [facility] Hematocrit (Bld) [Volume fraction] 35.2 % Low 39.0-50.0 [facility] Comment on above: Order Comment: No: D o not add to previous draw Performed By: #### 4 1000, , 67296 #### [facility] [address] [place] [id number], [facility] Hemoglobin (Bld) [Mass/Vol] 11.8 g/dL Low 13.0-17.0 [facility] Comment on above: Order Comment: No: D o not add to previous draw Performed By: #### 4 1000, , #### [facility] [address] [place] [id number], [facility] MCH (RBC) [Entitic mass] 35.5 pg High 27.0-33.0 [facility] Comment on above: Order Comment: No: D o not add to previous draw Performed By: #### 4 1000, , #### [facility] [address] [place] [address], [facility] MCHC (RBC) [Mass/Vol] 33.5 g/dL Normal 32.0-35.0 [facility] Comment on above: Order Comment: No: D o not add to previous draw Performed By: #### 4 1000, , 37489 #### [facility] [address] [place] [id number], [facility] MCV (RBC) [Entitic vol] 106.0 fL High 82.0-98.0 [facility] Comment on above: Order Comment: No: D o not add to previous draw Performed By: #### 4 1000, , 46901 #### [facility] [address] [place] [id number], [facility] Nucleated RBC/100 WBC (Bld) [Ratio] 0 % Normal 0-0 [facility] Comment on above: Order Comment: No: D o not add to previous draw Performed By: #### 4 1000, 42984, 12089 #### [facility] [address] [facility] [place] [address], [facility] PLAT CNT 158 10*3/uL Normal 150-400 [facility] Comment on above: Order Comment: No: D o not add to previous draw Performed By: #### 4 1000, 54898, 58025 #### [facility] [address] [facility] [place] [address], [facility] RBC (Bld) [#/Vol] 3.32 10*6/uL Low 4.20-5.70 [facility] Comment on above: Order Comment: No: D o not add to previous draw Performed By: #### 4 1000, 85609, 13357 #### [facility] [address] [facility] [place] [address], [facility] WBC (Bld) [#/Vol] 7.25 10*3/uL Normal 4.00-10.60 [facility] Comment on above: Order Comment: No: D o not add to previous draw Performed By: #### 4 1000, , 51281 #### [facility] [address] Cardiovascular Lab Reporton 06-28-2020 Cardiovascular Lab Report [facility] Patient Name: Chiki Juarez [facility] MR #: [id number] Physician: Connor Carrera MD Department of Service Date: 06/28/2020 Medicine Birthdate: 1945 Division of Room #: [id number] 733855 Cardiology Adult Cardiovascular Services [facility] [address] [place] [address] Cardiovascular Laboratory Report DUAL CHAMBER PACEMAKER IMPLANT PROCEDURE NOTE DATE OF PROCEDURE: 06/28/2020 PERFORMING PHYSICIAN: Dr. Connor Carrera CONSENT: Patient LOCATION: EP Lab PROCEDURE PERFORMED: 1. Implantation of pacemaker ([employer]) 2. Ultrasound guided venous access INDICATIONS: [...] using modified seldinger technique using a 5 [place] micro-puncture needle on two occasions and 0.24 [...] was made enough for the device. 6 [place] Safesheaths were placed over the wire. An active fixation [employer] pacing lead was then delivered through the 6Fsheath to the right ventricle. After confirmation of lead position on orthogonal views (PARK and MARTINIQUAIS) to confirm septal position, the screw was activated, and the lead was placed in the right ventricular mid cavity towards the septum. After confirmation of good sensing parameters, injury pattern and pacing thresholds, 10V pacing was done and no diaphragmatic stimulation was noted. It was then secured in the pocket using three 1-0 Silk sutures. Then an active fixation [employer] lead was delivered through the 6Fsheath to the right atrial appendage. After confirmation of lead position on orthogonal views (PARK and MARTINIQUAIS), the screw was activated. After confirmation of [...] immediate procedural complications were noted. Device info: [employer] Accolade MRI EL Model# L331 Serial# [id number] RA lead: Model# INGEVITY [id number] (45cms) Serial# [id number] Sensin.7mV Threshold: 0.9V@0.4ms Impedance: 666Ohms RV lead: Model# [id number] [id number](52cms) Serial# [id number] Sensin.1mV Threshold: 0.4V@0.4ms Impedance: 746Ohms POST PROCEDURE [...] Carrera MD Date Trans: 06/28/2020 03:33 P/alondra [id number] cc: Will Sherwood M.D. [address] [place] [id number] Normal [facility] MAGNESIUM BLOODon 06-28-2020 Magnesium [Mass/Vol] 2.1 mg/dL Normal 1.9-2.7 [facility] Comment on above: Order Comment: No: D o not add to previous draw Performed By: #### 4 1000, 61621, 26192 #### [facility] [address] [place] [address], [place] PHOSPHORUS BLOODon 0 Phosphate [Mass/Vol] 3.7 mg/dL Normal 2.5-5.0 [facility] Comment on above: Order Comment: No: D o not add to previous draw Performed By: #### 4 1000, 82069, 28335 #### [facility] [address] [place] [address], [place] POC GLUCOSE LABon 06-28-2020 Glucose [Mass/Vol] 93 mg/dL Normal 70-100 [facility] Comment on above: Performed By: #### 4 1000, 77549 #### [facility] [address] [place] [address], [place] Glucose [Mass/Vol] 90 mg/dL Normal 70-100 [facility] Comment on above: Performed By: #### 4 1000, 47684 #### [facility] [address] [place] [address], [place] Glucose [Mass/Vol] 97 mg/dL Normal 70-100 [facility] Comment on above: Performed By: #### 4 1000, 71815 #### [facility] [address] [place] [address], [place] Glucose [Mass/Vol] 99 mg/dL Normal 70-100 [facility] Comment on above: Performed By: #### 4 1000, 05212 #### [facility] [address] [place] [address], [place] APTTon 06-27-2020 aPTT Coag (Bld) [Time] 34.8 s Normal 25.0-35.0 [facility] Comment on above: Order Comment: [...] THIS PURPOSE. Performed By: #### 4 1000, 55142 #### [facility] [address] BASIC METABOLIC PANELon 11-1 Calcium [Mass/Vol] 9.1 mg/dL Normal 8.6-10.3 [facility] Comment on above: Order Comment: No: D o not add to previous draw Performed By: #### 4 1000, 61008, 36569 #### [facility] [address] [place] [address], [facility] Chloride [Moles/Vol] 104 mmol/L Normal 98-107 [facility] Comment on above: Order Comment: No: D o not add to previous draw Performed By: #### 4 1000, 15391, 38495 #### [facility] [address] [place] [address], [facility] CO2 [Moles/Vol] 23 mmol/L Normal 21-31 [facility] Comment on above: Order Comment: No: D o not add to previous draw Performed By: #### 4 1000, 76285, 35990 #### [facility] [address] [place] [address], [facility] Creatinine [Mass/Vol] 1.21 mg/dL Normal 0.70-1.30 [facility] Comment on above: Order Comment: No: D o not add to previous draw Performed By: #### 4 1000, 67861, 49646 #### [facility] [address] [place] [address], [facility] GFR/1.73 sq M predicted among blacks MDRD (S/P/Bld) [Vol rate/Area] mL/min/{1.73_m2} Normal >60 [facility] Comment on above: Order Comment: No: D o not add to previous draw Result Comment: Calc ulation may not be valid for patients over 70 years Performed By: #### 4 1000, , 57793 #### [facility] [address] [place] [address], [place] GFR/1.73 sq M predicted among non-blacks MDRD (S/P/Bld) [Vol rate/Area] 59 ml/min/1.73sq m Abnormal >60 [facility] Comment on above: Order Comment: No: D o not add to previous draw Result Comment: Calc ulation may not be valid for patients over 70 years Performed By: #### 4 1000, , 16943 #### [facility] [address] [place] [address], [place] Glucose [Mass/Vol] 132 mg/dL High 70-100 [facility] Comment on above: Order Comment: No: D o not add to previous draw Performed By: #### 4 1000, , 08215 #### [facility] [address] [place] [address], [place] Potassium [Moles/Vol] 5.2 mmol/L High 3.5-5.1 [facility] Comment on above: Order Comment: No: D o not add to previous draw Performed By: #### 4 1000, , 56050 #### [facility] [address] [place] [address], [place] Sodium [Moles/Vol] 135 mmol/L Low 136-145 [facility] Comment on above: Order Comment: No: D o not add to previous draw Performed By: #### 4 1000, , 55958 #### [facility] [address] [place] [address], [place] Urea nitrogen [Mass/Vol] 21 mg/dL Normal 7-25 [facility] Comment on above: Order Comment: No: D o not add to previous draw Performed By: #### 4 1000, , 30643 #### [facility] [address] [place] [address], [facility] C REACTIVE PROTEINon 020 CRP [Mass/Vol] 40.5 mg/L High 0.0-7.0 [facility] Comment on above: Order Comment: No: D o not add to previous draw Performed By: #### 4 1000, 82141, 06567 #### [facility] [address] [place] [address], [facility] CBC W/DIFFon 06-27-2020 ABS BASOPHILS 0.0 10*3/uL Normal 0.0-0.2 [facility] Comment on above: Order Comment: No: D o not add to previous draw Performed By: #### 4 1000, 86697 #### [facility] [address] [place] [address], [facility] ABS NEUTROPHILS 4.5 10*3/uL Normal 1.6-7.6 [facility] Comment on above: Order Comment: No: D o not add to previous draw Performed By: #### 4 1000, 43277 #### [facility] [address] [facility] [place] [address], [facility] Basophils/100 WBC (Bld) 0.0 % Normal 0.0-1.0 [facility] Comment on above: Order Comment: No: D o not add to previous draw Performed By: #### 4 1000, 26906 #### [facility] [address] [facility] [place] [address], [facility] Eosinophils (Bld) [#/Vol] 0.0 10*3/uL Normal 0.0-0.5 [facility] Comment on above: Order Comment: No: D o not add to previous draw Performed By: #### 4 1000, [id number] #### [facility] [address] [place] [address], [facility] Eosinophils/100 WBC (Bld) 0.0 % Normal 0.0-6.0 [facility] Comment on above: Order Comment: No: D o not add to previous draw Performed By: #### 4 1000, [id number] #### [facility] [address] [place] [address], [facility] Erythrocyte distribution width (RBC) [Ratio] 14.1 % Normal 11.5-15.0 [facility] Comment on above: Order Comment: No: D o not add to previous draw Performed By: #### 4 1000, [id number] #### [facility] [address] [place] [address], [facility] GIANT PLATELETS Present Normal [facility] Comment on above: Order Comment: No: D o not add to previous draw Performed By: #### 4 1000, 58706 #### [facility] [address] [place] [address], [facility] Hematocrit (Bld) [Volume fraction] 36.0 % Low 39.0-50.0 [facility] Comment on above: Order Comment: No: D o not add to previous draw Performed By: #### 4 1000, [id number] #### [facility] [address] [place] [address], [facility] Hemoglobin (Bld) [Mass/Vol] 11.8 g/dL Low 13.0-17.0 [facility] Comment on above: Order Comment: No: D o not add to previous draw Performed By: #### 4 1000, 36697 #### [facility] [address] [place] [address], [facility] Lymphocytes (Bld) [#/Vol] 0.5 10*3/uL Low 1.2-4.0 [facility] Comment on above: Order Comment: No: D o not add to previous draw Performed By: #### 4 1000, 79466 #### [facility] [address] [place] [id number], [facility] Lymphocytes/100 WBC (Bld) 8.2 % Low 20.0-45.0 [facility] Comment on above: Order Comment: No: D o not add to previous draw Performed By: #### 4 1000, 93630 #### [facility] [address] [place] [address], [facility] MCH (RBC) [Entitic mass] 35.2 pg High 27.0-33.0 [facility] Comment on above: Order Comment: No: D o not add to previous draw Performed By: #### 4 1000, 80048 #### [facility] [address] [place] [address], [facility] MCHC (RBC) [Mass/Vol] 32.8 g/dL Normal 32.0-35.0 [facility] Comment on above: Order Comment: No: D o not add to previous draw Performed By: #### 4 1000, [id number] #### [facility] [address] [place] [address], [facility] MCV (RBC) [Entitic vol] 107.5 fL High 82.0-98.0 [facility] Comment on above: Order Comment: No: D o not add to previous draw Performed By: #### 4 1000, [id number] #### [facility] [address] [facility] [place] [address], [facility] METAMYELO 3.7 % High 0.0-0.0 [facility] Comment on above: Order Comment: No: D o not add to previous draw Performed By: #### 4 1000, [id number] #### [facility] [address] [facility] [place] [address], [facility] Monocytes (Bld) [#/Vol] 0.5 10*3/uL Normal 0.1-1.0 [facility] Comment on above: Order Comment: No: D o not add to previous draw Performed By: #### 4 1000, [id number] #### [facility] [address] [place] [address], [facility] MONOS 9.2 % Normal 5.0-12.0 [facility] Comment on above: Order Comment: No: D o not add to previous draw Performed By: #### 4 1000, 49116 #### [facility] [address] [place] [address], [facility] MYELOS 3.7 % High 0.0-0.0 [facility] Comment on above: Order Comment: No: D o not add to previous draw Performed By: #### 4 1000, 60874 #### [facility] [address] [place] [address], [place] Neutrophils/100 WBC (Bld) 75.2 % High 40.0-72.0 [facility] Comment on above: Order Comment: No: D o not add to previous draw Performed By: #### 4 1000, 78158 #### [facility] [address] [place] [address], [place] NRBC SCAN Present Normal [facility] Comment on above: Order Comment: No: D o not add to previous draw Performed By: #### 4 1000, 89868 #### [facility] [address] [place] [address], [place] Nucleated RBC/100 WBC (Bld) [Ratio] 0 % Normal 0-0 [facility] Comment on above: Order Comment: No: D o not add to previous draw Performed By: #### 4 1000, 80530 #### [facility] [address] [place] [address], [place] PLAT CNT 153 10*3/uL Normal 150-400 [facility] Comment on above: Order Comment: No: D o not add to previous draw Performed By: #### 4 1000, 17295 #### [facility] [address] [place] [address], [place] RBC (Bld) [#/Vol] 3.35 10*6/uL Low 4.20-5.70 [facility] Comment on above: Order Comment: No: D o not add to previous draw Performed By: #### 4 1000, 04569 #### [facility] [address] [place] [address], [place] WBC (Bld) [#/Vol] 5.92 10*3/uL Normal 4.00-10.60 [facility] Comment on above: Order Comment: No: D o not add to previous draw Performed By: #### 4 1000, 38152 #### [facility] [address] [place] [address], [facility] CPKon 06-27-2020 CK [Catalytic activity/Vol] 90 U/L Normal 30-223 [facility] Comment on above: Order Comment: No: D o not add to previous draw Performed By: #### 4 1000, 41321, 81077 #### [facility] [address] [place] [address], [facility] CTA HEADon 06-27-2020 CTA HEAD [facility] Department of Radiology [address] [place] [id number] Patient Name: CHIKI JUAREZ : 1945 Sex: M Age: Race: White Pt. Location: [id number] Patient Status: I Ordered Date: 06/27/2020 9:05:00 [...] achievable Electronically signed: Ashu García. Transcribed by: [email or web address], User Resident: Electronically Signed by: ASHU GARCÍA @ 06/27/2020 01:12 PM Normal [facility] Comment on above: Order Comment: No: D o not add to previous draw CTA NECKon 06-27-2020 CTA NECK [facility] Department of Radiology [address] [place] [id number] Patient Name: CHIKI JUAREZ : 1945 Sex: M Age: Race: White Pt. Location: [id number] Patient Status: I Ordered Date: 06/27/2020 9:05:00 [...] viewed on a separate workstation. The [place] Symptomatic Carotid Endarterectomy Trial (NASCET) method for [...] achievable Electronically signed: Ashu García. Transcribed by: [email or web address], User Resident: Electronically Signed by: ASHU GARCÍA @ 06/27/2020 01:08 PM Normal [facility] D DIMER TESTon 06-27-2020 D-DIMER TEST 0.39 mcg/mL FEU Normal 0.27-0.49 [facility] Comment on above: Order Comment: No: D o not add to previous draw Result Comment: D-Di fide values of less than 0.50 ug/ml (FEU) are considered to be a negative predictor of thrombosis. However, the D-Dimer result should be used in conjunction with pretest probability and should not be used alone to diagnose a thrombotic event. Performed By: #### 4 1000, 05777 #### [facility] [address] [place] [address], [facility] FERRITINon 06-27-2020 Ferritin [Mass/Vol] 250 ng/mL Normal 24-336 [facility] Comment on above: Order Comment: No: D o not add to previous draw Performed By: #### 4 1000, 00791, 20174 #### [facility] [address] HEMOGLOBIN A1Con 06-27-2020 HbA1c (Bld) [Mass fraction] 134 mmol/L Normal [facility] Comment on above: Order Comment: No: D o not add to previous draw Performed By: #### 4 1000, 44171, 26101 #### [facility] [address] [place] [address], [facility] HbA1c (Bld) [Mass fraction] 6.3 % High 4.0-6.0 [facility] Comment on above: Order Comment: No: D o not add to previous draw Performed By: #### 4 1000, 50119, 30468 #### [facility] [address] [place] [address], [facility] LDH BLOODon 06-27-2020 LDH 213 Units/L Normal 140-271 [facility] Comment on above: Order Comment: No: D o not add to previous draw Performed By: #### 4 1000, , 71790 #### [facility] [address] [place] [address], [facility] LIVER BATTERYon 06-27-2020 Albumin [Mass/Vol] 3.5 g/dL Normal 3.5-5.7 [facility] Comment on above: Order Comment: No: D o not add to previous draw Performed By: #### 4 1000, , 08300 #### [facility] [address] [place] [address], [place] ALKALINE PHOSPH 62 IU/L Normal 34-104 [facility] Comment on above: Order Comment: No: D o not add to previous draw Performed By: #### 4 1000, , 10388 #### [facility] [address] [place] [address], [place] ALT [Catalytic activity/Vol] 11 U/L Normal 7-52 [facility] Comment on above: Order Comment: No: D o not add to previous draw Performed By: #### 4 1000, , 71756 #### [facility] [address] [place] [address], [place] AST [Catalytic activity/Vol] 10 U/L Low 13-39 [facility] Comment on above: Order Comment: No: D o not add to previous draw Performed By: #### 4 1000, , 17706 #### [facility] [address] [place] [address], [place] Bilirubin [Mass/Vol] 0.5 mg/dL Normal 0.3-1.0 [facility] Comment on above: Order Comment: No: D o not add to previous draw Performed By: #### 4 1000, , 38350 #### [facility] [address] [place] [address], [place] Bilirubin.direct [Mass/Vol] 0.2 mg/dL Normal 0.0-0.2 [facility] Comment on above: Order Comment: No: D o not add to previous draw Performed By: #### 4 1000, , 62619 #### [facility] [address] [place] [address], [place] Protein [Mass/Vol] 6.0 g/dL Normal 6.0-8.3 [facility] Comment on above: Order Comment: No: D o not add to previous draw Performed By: #### 4 1000, 64828, 41170 #### [facility] [address] [place] [address], [facility] MAGNESIUM BLOODon 06-27-2020 Magnesium [Mass/Vol] 2.3 mg/dL Normal 1.9-2.7 [facility] Comment on above: Order Comment: No: D o not add to previous draw Performed By: #### 4 1000, 44891, 53085 #### [facility] [address] [place] [address], [facility] POC GLUCOSE LABon 06-27-2020 Glucose [Mass/Vol] 103 mg/dL High 70-100 [facility] Comment on above: Performed By: #### 4 1000, 42438 #### [facility] [address] [place] [address], [facility] Glucose [Mass/Vol] 100 mg/dL Normal 70-100 [facility] Comment on above: Performed By: #### 4 1000, 84731 #### [facility] [address] [place] [address], [facility] POTASSIUM BLOODon 06-27-2020 Potassium [Moles/Vol] 4.5 mmol/L Normal 3.5-5.1 [facility] Comment on above: Order Comment: No: D o not add to previous draw Performed By: #### 4 1406 #### [facility] [address] [place] [address], [facility] PROTHROMBIN TIMEon 0 INR Coag (PPP) [Relative time] 1.05 {INR} Normal 0.91-1.16 [facility] Comment on above: Order Comment: [...] CHEST 1995;[id number]. Performed By: #### 4 1000, 43986 #### [facility] [address] PT Coag (PPP) [Time] 13.7 s Normal 12.3-14.8 [facility] Comment on above: Order Comment: No: D o not add to previous draw Result Comment: ALL RESULTS MUST BE INTERPRETED WITH RESPECT TO BLOOD DRAWING ARTIFACT OR DILUTION ERROR OF ANTICOAGULANT AT THE TIME OF SAMPLING. Performed By: #### 4 1000, 40834 #### [facility] [address] TSH3 WITH REFLEX FT4on 06-27 TSH 3RD GENERATION 0.86 uIU/mL Normal 0.34-5.60 [facility] Comment on above: Performed By: #### 4 1000, 34054, 24595 #### [facility] [address] [facility]. [address] VITAMIN B12on 06-27-2020 Cobalamin (Vitamin B12) [Mass/Vol] 3006 pg/mL High 180-914 [facility] Comment on above: Result Comment: REFE RENCE RANGES: 180-914 pg/mL Normal 145-179 pg/mL Indeterminate <145 pg/mL Deficient Performed By: #### 4 1000, 61138, 48874 #### [facility] [address] [facility] [place] [address], [facility] PHOSPHORUS BLOODon 0 Phosphate [Mass/Vol] 3.2 mg/dL Normal 2.5-5.0 [facility] Comment on above: Order Comment: No: D o not add to previous draw Performed By: #### 4 1000, 45467 #### [facility] [address] [facility] [place] [address], [facility] TROPONIN-Ion 06-26-2020 Troponin I.cardiac [Mass/Vol] 0.01 ng/mL Normal 0.00-0.04 [facility] Comment on above: Order Comment: No: D o not add to previous draw Result Comment: REFE RENCE RANGES: 0.00 - 0.04 ng/ml NORMAL 0.05 - 0.50 ng/ml INDETERMINATE > 0.50 ng/ml CONSISTENT WITH AN M.I. Performed By: #### 4 1000, 74982 #### [facility] [address] Vital Signs Date Time Vital Sign Value Performing Clinician Facility 11-21-2024 15:05-0400 Body mass index (BMI) [Ratio] 32.52 kg/m2 Tyler Draper MD Work Phone: [facility] 11-21-2024 15:05-0400 Body temperature 97.7 [degF] Tyler Draper MD Work Phone: [facility] 11-21-2024 15:05-0400 Body weight 97 kg Tyler Draper MD Work Phone: [facility] 11-21-2024 15:05-0400 Diastolic blood pressure 65 mm[Hg] Tyler Draper MD Work Phone: [facility] 11-21-2024 15:05-0400 Heart rate 83 /min Tyler Draper MD Work Phone: [facility] 11-21-2024 15:05-0400 Respiratory rate 24 /min Tyler Draper MD Work Phone: [facility] 11-21-2024 15:05-0400 SaO2% (BldA) [Mass fraction] 90 % Tyler Draper MD Work Phone: [facility] 11-21-2024 15:05-0400 Systolic blood pressure 122 mm[Hg] Tyler Draper MD Work Phone: [facility] 06-20-2024 08:42-0500 Body height 162.6 cm Connor Biedenbach DO Work Phone: [facility] 06-20-2024 08:42-0500 Body mass index (BMI) [Ratio] 37.76 kg/m2 Connor Biedenbach DO Work Phone: [facility] 06-20-2024 08:42-0500 Body weight 99.79 kg Connor Biedenbach DO Work Phone: [facility] 06-09-2024 09:43-0400 Body height 162.6 cm Connor Biedenbach DO Work Phone: [facility] 06-09-2024 09:43-0400 Body mass index (BMI) [Ratio] 37.76 kg/m2 Connor Biedenbach DO Work Phone: [facility] 06-09-2024 09:43-0400 Body weight 99.79 kg Connor Biedenbach DO Work Phone: [facility] 06-06-2024 13:36-0400 Body mass index (BMI) [Ratio] 33.83 kg/m2 Tyler Draper MD Work Phone: [facility] 06-06-2024 13:36-0400 Body temperature 97 [degF] Tyler Draper MD Work Phone: [facility] 06-06-2024 13:36-0400 Body weight 100.9 kg Tyler Draper MD Work Phone: [facility] 06-06-2024 13:36-0400 Diastolic blood pressure 59 mm[Hg] Tyler Draper MD Work Phone: [facility] 06-06-2024 13:36-0400 Heart rate 74 /min Tyler Draper MD Work Phone: [facility] 06-06-2024 13:36-0400 Respiratory rate 18 /min Tyler Draper MD Work Phone: [facility] 06-06-2024 13:36-0400 SaO2% (BldA) [Mass fraction] 90 % Tyler Draper MD Work Phone: [facility] 06-06-2024 13:36-0400 Systolic blood pressure 109 mm[Hg] Tyler Draper MD Work Phone: [facility] 06-01-2024 16:00-0400 Diastolic blood pressure 64 mm[Hg] MD Pito Patterson Work Phone: [facility] 06-01-2024 16:00-0400 Heart rate 75 /min MD Pito Patterson Work Phone: [facility] 06-01-2024 16:00-0400 Inhaled oxygen concentration 4 % MD Pito Patterson Work Phone: [facility] 06-01-2024 16:00-0400 Respiratory rate 20 /min MD Pito Patterson Work Phone: [facility] 06-01-2024 16:00-0400 SaO2% (BldA) [Mass fraction] 99 % MD Pito Patterson Work Phone: [facility] 06-01-2024 16:00-0400 Systolic blood pressure 121 mm[Hg] MD Pito Patterson Work Phone: [facility] 06-01-2024 13:16-0400 Inhaled oxygen flow rate 4 L/min MD Pito Patterson Work Phone: [facility] 06-01-2024 13:02-0400 Body height 162.56 cm MD Pito Patterson Work Phone: [facility] 06-01-2024 13:02-0400 Body temperature 97.5 [degF] MD Pito Patterson Work Phone: [facility] 06-01-2024 13:02-0400 Body weight 98.88 kg MD Pito Patterson Work Phone: [facility] 05-31-2024 14:31-0400 Body height 162.6 cm Connor Crawley DO Work Phone: [facility] 05-31-2024 14:31-0400 Body mass index (BMI) [Ratio] 37.76 kg/m2 Connor Bourgeoisencherri DO Work Phone: [facility] 05-31-2024 14:31-0400 Body weight 99.79 kg Connor Crawley DO Work Phone: [facility] 04-22-2024 09:41-0400 Blood Pressure Location Oni MCKEON [facility] 04-22-2024 09:41-0400 Body temperature 98.6 [degF] Oni MCKEON [facility] 04-22-2024 09:41-0400 Diastolic blood pressure 52 mm[Hg] Oni MCKEON [facility] 04-22-2024 09:41-0400 Heart rate 59 /min Oni MCKEON [facility] 04-22-2024 09:41-0400 Respiratory rate 16 /min Oni MCKEON [facility] 04-22-2024 09:41-0400 Systolic blood pressure 102 mm[Hg] Oni MCKEON [facility] 04-19-2024 14:18-0400 Body height 172.7 cm Tyler Draper MD Work Phone: [facility] 04-19-2024 14:18-0400 Body mass index (BMI) [Ratio] 33.16 kg/m2 Tyler Draper MD Work Phone: [facility] 04-19-2024 14:18-0400 Body temperature 96.8 [degF] Tyler Draper MD Work Phone: [facility] 04-19-2024 14:18-0400 Body weight 98.9 kg Tyler Draper MD Work Phone: [facility] 04-19-2024 14:18-0400 Diastolic blood pressure 66 mm[Hg] Tyler Draper MD Work Phone: [facility] 04-19-2024 14:18-0400 Heart rate 85 /min Tyler Draper MD Work Phone: [facility] 04-19-2024 14:18-0400 Respiratory rate 20 /min Tyler Draper MD Work Phone: [facility] 04-19-2024 14:18-0400 SaO2% (BldA) [Mass fraction] 92 % Tyler Draper MD Work Phone: [facility] 04-19-2024 14:18-0400 Systolic blood pressure 120 mm[Hg] Tyler Draper MD Work Phone: [facility] 03-09-2023 10:50-0400 Blood Pressure Location Oni MCKEON [facility] 03-09-2023 10:50-0400 Diastolic blood pressure 70 mm[Hg] Oni MCKEON [facility] 03-09-2023 10:50-0400 Heart rate 71 /min Oni MCKEON [facility] 03-09-2023 10:50-0400 Respiratory rate 16 /min Oni MCKEON [facility] 03-09-2023 10:50-0400 Systolic blood pressure 109 mm[Hg] Oni MCKEON [facility] 01-09-2022 13:00-0400 Body height 172.7 cm Hosea Herrera MD Work Phone: [facility] 01-09-2022 13:00-0400 Body temperature 97.81 [degF] Hosea Herrera MD Work Phone: [facility] 01-09-2022 13:00-0400 Body weight 100.61 kg Hosea Herrera MD Work Phone: [facility] 01-09-2022 13:00-0400 Diastolic blood pressure 68 mm[Hg] Hosea Herrera MD Work Phone: [facility] 01-09-2022 13:00-0400 Heart rate 93 /min Hosea Herrera MD Work Phone: [facility] 01-09-2022 13:00-0400 Respiratory rate 18 /min Hosea Herrera MD Work Phone: [facility] 01-09-2022 13:00-0400 SaO2% (BldA) [Mass fraction] 93 % Hosea Herrera MD Work Phone: [facility] 01-09-2022 13:00-0400 Systolic blood pressure 95 mm[Hg] Hosea Herrera MD Work Phone: [facility] 11-19-2021 10:19-0400 Blood Pressure Location Romeo Vidal Jr. [facility] 11-19-2021 10:19-0400 Diastolic blood pressure 60 mm[Hg] Romeo Vidal Jr. [facility] 11-19-2021 10:19-0400 Heart rate 80 /min Romeo Vidal Jr. [facility] 11-19-2021 10:19-0400 Respiratory rate 16 /min Romeo Vidal Jr. [facility] 11-19-2021 10:19-0400 Systolic blood pressure 113 mm[Hg] Romeo Vidal Jr. [facility] Encounters Encounter Date Encounter Type Care Provider Facility Start: 02-15-2026 ambulatory Marlys L Corwin Facility: [facility] Start: 04-24-2025 ambulatory Oni Victor ty:[facility] Start: 02-27-2025 ambulatory [facility] Start: 02-16-2025 End: 02-16-2025 Lab Drop off Marlys L Corwin [facility] Start: 02-16-2025 End: 02-16-2025 ambulatory Marlys L Corwin Facility:[facility] Start: 02-15-2025 End: 02-15-2025 ambulatory Marlys L Corwin Facility:[facility] Start: 02-14-2025 ambulatory Pito Patterson Facility :[facility] Start: 02-02-2025 End: 02-02-2025 Bamboo flowsheet [facility]rys [facility] Work Phone: [facility] Start: 02-02-2025 End: 02-02-2025 [facility] Work Phone: [facility] [...] Available Start: 12-21-2024 ambulatory CONNOR [facility] Start: 11-24-2024 End: 11-24-2024 Follow-up encounter Tyler Draper MD Work Phone: Hematology/Oncology Comment on above: TSH results Start: 11-24-2024 End: 11-24-2024 ambulatory Pito Patterson Facility:[facility] Katerina Start: 11-21-2024 End: 11-21-2024 ambulatory TYLER DRAPER Facility:[facility] Start: 11-21-2024 End: 11-21-2024 Office outpatient visit 25 minutes Tyler Draper MD Work Phone: Hematology/Oncology Comment on above: 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); History of prostate cancer; Acquired hypothyroidism Start: 11-15-2024 End: 11-15-2024 ambulatory TYLER DRAPER Facility:[facility] Start: 11-15-2024 End: 11-15-2024 Subsequent hospital visit by physician Arrival Time Radiology Work Phone: Radiology Pet CT Comment on above: Localized enlarged l ymph nodes [R59.0] Start: 10-21-2024 End: 10-21-2024 ambulatory [facility] Start: 10-17-2024 End: 10-28-2024 ambulatory Pito Patterson Facility:CD:[id number] Start: 10-14-2024 End: 10-14-2024 Telephone encounter Tyler Draper MD Work Phone: Hematology/Oncology Comment on above: Orders Start: 08-25-2024 End: 08-25-2024 ambulatory Pito Patterson Facility:[facility] Katerina Start: 08-04-2024 End: 08-04-2024 ambulatory CRYS NORTHEIM Not Available Start: 08-04-2024 End: 08-04-2024 Office outpatient visit 15 minutes Crys Taylor PA Work Phone: [facility] Comment on above: Capillary angioma (P rimary Dx); Melanocytic nevus of trunk; Seborrheic keratosis; Actinic keratosis; History of SCC (squamous cell carcinoma) of skin; Lentigo simplex Start: 07-13-2024 End: 07-13-2024 ambulatory MARKUS CERNA Facility:[facility] Start: 06-20-2024 End: 06-20-2024 Bamboo flowsheet [...] center MD Pito Patterson Work Phone: [facility] [place] Start: 06-01-2024 End: 06-01-2024 ambulatory MD Pito Patterson Work Phone: [facility] Work Phone: Start: 05-31-2024 End: 05-31-2024 [...] Start: 05-17-2024 End: 05-17-2024 ambulatory Pito Patterson Facility:[facility] Start: 05-13-2024 End: 05-13-2024 ambulatory [facility] Start: 05-03-2024 End: 05-03-2024 Bamboo [...] End: 04-29-2024 ambulatory TYLER DRAPER Facility:[facility] Start: 04-29-2024 End: 04-29-2024 Subsequent hospital visit by physician Arrival Time Radiology Work Phone: Radiology Pet CT Comment on above: History of lymphoma [Z85.72] Start: 04-26-2024 End: 04-26-2024 ambulatory CONNOR [facility] Start: 04-22-2024 End: 04-22-2024 ambulatory Oni MCKEON Facility:[facility] Start: 04-22-2024 End: 04-22-2024 Patient encounter procedure Oni MCKEON [facility] Start: 04-19-2024 End: 04-19-2024 Patient encounter procedure Tyler Draper MD Work Phone: Hematology/Oncology Start: 04-19-2024 End: 04-19-2024 ambulatory Tyler Draper MD Work Phone: Hematology/Oncology Comment on above: 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); History of lymphoma; Lymph node enlargement; Skin lesion of face Start: 04-19-2024 End: 04-26-2024 Telephone encounter Tyler Draper MD [facility] Comment on above: Future Appointment Start: 02-02-2024 Telephone encounter Valerie Wallace Hematology/Oncology Comment on above: Results Start: 01-21-2024 End: 01-21-2024 ambulatory PITO PATTERSON Facility:[facility] Start: 10-19-2023 End: 10-19-2023 Lab Drop off Pito Patterson [facility] Start: 03-31-2023 End: 03-31-2023 Patient encounter procedure Oni MCKEON [facility] Start: 03-09-2023 End: 03-09-2023 Patient encounter procedure Oni MCKEON [facility] Start: 01-26-2023 End: 01-26-2023 Lab Drop off Marlys Olivia [facility] Start: 08-05-2022 Telephone encounter Aby Hernandez RN Hematology/Oncology Comment on above: Results Start: 07-24-2022 Telephone encounter Tyler cadena MD Work Phone: Cancer [facility] Comment on above: Appointment Start: 04-22-2022 End: [...] procedure Romeo Vidal Jr. [facility] Start: 09-24-2021 End: 09-25-[address] WILL [...] Evaluation and management of inpatient CRESCENCIO FLETCHER Facility:[facility] Procedures Date Procedure Procedure Detail Performing Clinician Start: 02-02-2025 CRYOTHERAPY SKIN LESION Crys Taylor PA Work Phone: Start: 11-15-2024 Ct thorax w/contrast material Tyler Draper MD Work Phone: Start: 11-15-2024 Blood count complete auto&auto difrntl wbc Arabella Nalini [employer].RECORDS MANAGEMENT MANAGER Work Phone: Start: 08-04-2024 CRYOTHERAPY SKIN LESION [...] on above: Performed By: #### P SAD ####[facility] [id number] [place], [place] [address]Qn. Trevor Nichols Start: 06-28-2020 INSERT PACE. DUAL [...] DTaP,Tdap,Td Vaccine (2 - Td or Tdap) [facility] Start: 11-16-2027 Diabetes Screening Diabetes Screening [facility] Start: 04-19-2027 Diabetes Screening Diabetes Screening [facility] Start: 01-20-2027 Diabetes Screening Diabetes Screening [facility] Start: 08-03-2025 End: 08-03-2025 Patient encounter procedure 08/03/2025 1:10 PM EST Office Visit [facility] [address] [place] [address] Crys Taylor PA [address] [place] [address] [facility] Start: 07-18-2025 DIABETES SCREEN DIABETES SCREEN [facility] Start: 05-29-2025 End: 05-29-2025 Follow-up encounter 05/29/2025 3:00 PM EDT Visit (SP) Office Hematology/Oncology [address] [place] [address] Ginger Bean APRN.RECORDS MANAGEMENT MANAGER [address] [place] [address] 6 month follow up / BRM pt Hematology/Oncology Comment on above: 6 month follow up / BRM pt Start: 05-22-2025 End: 05-22-2025 Patient encounter procedure 05/22/2025 3:30 PM EDT Office Visit [facility] [address] [place] [address] 6 month lab [facility] Comment on above: 6 month lab Start: 02-02-2025 End: 02-02-2025 Patient encounter procedure [facility] Comment on above: Arrived Start: 01-09-2025 DIABETES SCREEN DIABETES SCREEN [facility] Start: 11-21-2024 End: 11-21-2024 Follow-up encounter 11/21/2024 3:20 PM EDT Visit (SP) Office Hematology/Oncology [address] [place] [address] Tyler Draper MD [address] [place] [address] 6 Month follow up with lab Hematology/Oncology Comment on above: 6 Month follow up with lab Start: 11-21-2024 End: 11-21-2024 Patient encounter procedure 11/21/2024 3:00 PM EDT Office Visit [facility] [address] [place] [address] 6 Month follow up with lab [facility] Comment on above: 6 Month follow up with lab Start: 11-15-2024 End: 02-14-2025 CBC W Auto Differential panel - Blood COMPLETE BLOOD COUNT AND DIFFERENTIAL Lab Routine Diffuse large B-cell lymphoma, unspecified body region (HCC) Expected: 11/15/2024 (Approximate), Expires: 02/14/2025 [facility] Comment on above: Expected: 11/15/2024 (Approximate), Expi res: 02/14/2025 Start: 11-15-2024 End: 02-14-2025 Comprehensive metabolic 2000 panel - Serum or Plasma COMPREHENSIVE METABOLIC PANEL Lab Routine Diffuse large B-cell lymphoma, unspecified body region (HCC) Expected: 11/15/2024 (Approximate), Expires: 02/14/2025 [facility] Work Phone: Comment on above: Expected: 11/15/2024 (Approximate), Expi res: 02/14/2025 Start: 11-15-2024 End: 07-10-2025 CT Chest W contrast IV CT CHEST W IVCON Radiology Routine Localized enlarged lymph nodes Expected: 11/15/2024, Expires: 07/10/2025 [facility] Work Phone: Comment on above: Expected: 11/15/2024, Expires: Start: 11-15-2024 End: 02-14-2025 MONOCLONAL PROTEIN, SERUM (BLOOD) [facility] Comment on above: Expected: 11/15/2024 (Approximate), Expi res: 02/14/2025 Start: 11-15-2024 End: 02-14-2025 PROTEIN ELECTROPHORESIS SERUM W/INTERP [facility] Comment on above: Expected: 11/15/2024 (Approximate), Expi res: 02/14/2025 Start: 11-15-2024 End: 11-15-2024 Patient encounter procedure Radiology Pet CT Comment on above: CT Chest with IVC Start: 11-09-2024 Covid-19 Vaccine (7 - Pfizer risk season) Covid-19 Vaccine (7 - Pfizer risk season) [facility] Start: 08-17-2024 Advance Directive Discussion Advance Directive Discussion [facility] Start: 08-04-2024 End: 08-04-2024 Patient encounter procedure 08/04/2024 1:00 PM EST Office Visit [facility] [address] [place] [address] Crys Taylor PA [address] [place] [address] [facility] Start: 07-07-2024 Covid-19 Vaccine ( season) Covid-19 Vaccine ( season) [facility] Start: 06-28-2024 End: 06-28-2024 Patient encounter procedure 06/28/2024 1:00 PM EST Office Visit [facility] [address] [place] [address] Chiki Malone MD [address] [place] [address] [facility] Start: 06-20-2024 End: 06-20-2024 Patient encounter procedure 06/20/2024 8:45 AM EST Office Visit [facility] [place] [address] [place] [id number] Connor Crawley DO [address] [place] [address] Arrived [facility] [place] Comment on above: Arrived Start: 06-17-2024 End: 06-17-2024 Patient encounter procedure 06/17/2024 1:15 PM EDT Office Visit [facility] [place] [address] [place] [id number] Connor Crawley DO [address] [place] [address] [facility] [place] Start: 06-09-2024 End: 06-09-2024 Patient encounter procedure [facility] [place] Comment on above: Arrived Start: 06-06-2024 End: 06-06-2024 Follow-up encounter 06/06/2024 1:45 PM EDT Visit (SP) Office Hematology/Oncology [address] [place] [address] [place] [address] Tyler Draper MD [address] [place] [address] 6 week follow up Hematology/Oncology Comment on above: 6 week follow up Start: 06-06-2024 End: 06-06-2024 Patient encounter procedure 06/06/2024 1:30 PM EDT Office Visit [facility] [address] [place] [address] 6 week follow up [facility] Comment on above: 6 week follow up Start: 06-01-2024 [facility] Start: 05-31-2024 End: 05-31-2024 Patient encounter procedure 05/31/2024 2:30 PM EDT Office Visit [facility] [address] [place] [address] Connor Crawley S, DO [address] [place] [address] 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 [facility] Comment on above: Squamous cell cancer of skin of left vibha ek Start: 05-03-2024 End: 05-03-2024 Patient encounter procedure 05/03/2024 11:00 AM EDT Office Visit [facility] [address] [place] [address] Crys Taylor PA [address] [place] [address] Arrived [facility] Comment on above: Arrived Start: 04-29-2024 End: 04-29-2024 Patient encounter procedure 04/29/2024 1:30 PM EDT Appointment Radiology Pet CT [address] [place] [address] Comment on above: Pet scan Start: 04-19-2024 End: 04-19-2024 ambulatory 04/19/2024 2:30 PM EDT Visit (SP) Office Hematology/Oncology [address] [place] [address] Tyler Draper MD [address] [place] [address] 6 month lab Hematology/Oncology Comment on above: 6 month lab Start: 04-19-2024 End: 04-19-2024 Patient encounter procedure 04/19/2024 2:15 PM EDT Office Visit [facility] [address] [place] [address] 6 month lab [facility] Comment on above: 6 month lab Start: 04-19-2024 End: 07-19-2024 MONOCLONAL PROTEIN, SERUM (BLOOD) [facility] Comment on above: Expected: 04/19/2024, Expires: Start: 04-19-2024 End: 07-19-2024 PROT ELECT SERUM WITH CARSON AND INTERP [facility] Work Phone: Comment on above: Expected: 04/19/2024, Expires: Start: 04-17-2024 Covid-19 Vaccine ( season) Covid-19 Vaccine ( season) [facility] Start: 04-17-2024 Influenza vaccination Influenza Vaccine (#1) [facility] Start: 08-27-2023 Covid-19 Vaccine ( season) Covid-19 Vaccine ( season) [facility] Start: 08-17-2023 Advance Directive Discussion Advance Directive Discussion [facility] Start: 08-17-2023 Behavioral Health Screening Behavioral Health Screening [facility] Start: 01-09-2023 Adult depression screening assessment DEPRESSION SCREENING [facility] Start: 07-18-2022 End: 09-17-2022 CBC panel - Blood by Automated count CBC Lab Routine MGUS (monoclonal gammopathy of unknown significance) Expected: 07/18/2022 (Approximate), Expires: 09/17/2022 [facility] Work Phone: Comment on above: Expected: 07/18/2022 (Approximate), Expi res: 09/17/2022 Start: 07-18-2022 End: 09-17-2022 Comprehensive metabolic 2000 panel - Serum or Plasma COMP METABOLIC PANEL Lab Routine MGUS (monoclonal gammopathy of unknown significance) Expected: 07/18/2022 (Approximate), Expires: 09/17/2022 [facility] Work Phone: Comment on above: Expected: 07/18/2022 (Approximate), Expi res: 09/17/2022 Start: 07-18-2022 End: 09-17-2022 MONOCLONAL PROTEIN, SERUM (BLOOD) MONOCLONAL PROTEIN, SERUM (BLOOD) Lab Routine MGUS (monoclonal gammopathy of unknown significance) Expected: 07/18/2022 (Approximate), Expires: 09/17/2022 [facility] Work Phone: Comment on above: Expected: 07/18/2022 (Approximate), Expi res: 09/17/2022 Start: 07-18-2022 End: 09-17-2022 PROTEIN ELECTROPHORESIS SERUM W/INTERP PROTEIN ELECTROPHORESIS SERUM W/INTERP Lab Routine MGUS (monoclonal gammopathy of unknown significance) Expected: 07/18/2022 (Approximate), Expires: 09/17/2022 [facility] Work Phone: Comment on above: Expected: 07/18/2022 (Approximate), Expi res: 09/17/2022 Start: 05-06-2022 COVID-19 VACCINE (5 - Booster for Pfizer series) COVID-19 VACCINE (5 - Booster for Pfizer series) [facility] Start: 04-17-2022 Influenza vaccination INFLUENZA (#1) [facility] Start: 09-25-2021 COVID-19 VACCINE (4 - Booster for Pfizer series) COVID-19 VACCINE (4 - Booster for Pfizer series) [facility] Start: 08-17-2021 ADVANCE DIRECTIVE DISCUSSION ADVANCE DIRECTIVE DISCUSSION [facility] Start: 08-17-2021 DEPRESSION ASSESSMENT DEPRESSION ASSESSMENT [facility] Start: 2007 RSV Vaccine (1 - 1-dose 60+ series) RSV Vaccine (1 - 1-dose 60+ series) [facility] Start: 1997 SHINGRIX VACCINE (1 of 2) SHINGRIX VACCINE (1 of 2) [facility] Start: 1992 COLOGUARD (FIT-DNA) COLOGUARD (FIT-DNA) [facility] Start: 1992 Colonoscopy COLONOSCOPY [facility] Start: 1992 COLORECTAL CANCER SCREENING COLORECTAL CANCER SCREENING [facility] Start: [address] COLONOGRAPHY [facility] Start: 1992 FECAL OCCULT BLOOD FECAL OCCULT BLOOD [facility] Start: 1992 SIGMOIDOSCOPY SIGMOIDOSCOPY [facility] Start: 1982 LIPID SCREEN LIPID SCREEN [facility] Start: 1966 SHINGRIX VACCINE (1 of 2) SHINGRIX VACCINE (1 of 2) [facility] Start: 1966 Urine microalbumin profile DTAP,TDAP,TD (1 - Tdap) [facility] Start: 1965 Anxiety Screening Anxiety Screening [facility] Start: 1965 Depression Screening Depression Screening [facility] Start: 1965 HEPATITIS C SCREENING HEPATITIS C SCREENING [facility] Start: 1965 Hepatitis C screening Hepatitis C Screening [facility] Start: 1947 ABDOMINAL AORTIC ANEURYSM SCREENING ABDOMINAL AORTIC ANEURYSM SCREENING [facility] Start: 1947 Medicare Annual Wellness (AWV) Medicare Annual Wellness (AWV) [facility] CBC W Auto Different ial panel - Blood CBC + DIFF Lab Routine B12 deficiency Diffuse large B-cell lymphoma, unspecified body region (HCC) 01/09/2022 1:40 PM EDT [facility] Work Phone: Dermatopathology exam Dermatopat hology exam Pathology and Cytology Timed Neoplasm of unspecified behavior of bone, soft tissue, and skin Release Upon Ordering for 1 Occurrences starting 05/03/2024 [facility] Work Phone: Comment on above: Release Upon Ordering for 1 Occurrences starting 05/03/2024 End: 11-15-2024 IMMUNOFIXATION SCREEN, SERUM [facility] Comment on above: Once for 1 Occurrences starting 11/16/19 until 11/15/2024 End: 11-15-2024 IMMUNOGLOBULINS,IGG,IGA,I GM [facility] Comment on above: Once for 1 Occurrences starting 11/16/19 until 11/15/2024 End: 11-15-2024 KAPPA/ARDON,FREE,SER [facility] Comment on above: Once for 1 Occurrences starting 11/16/19 until 11/15/2024 Patient Education Know your Meds [facility] Work Phone: Patient referral [facility] Work Phone: End: 05-19-2025 PET+CT Guidance for localization of tumor of Skull base to mid-thigh-- W 18F-FDG IV NM PET/CT SKULL-THIGH SUBSEQUENT Radiology Routine History of lymphoma Lymph node enlargement 1 Occurrences starting 04/19/2024 until 05/19/2025 [facility] Comment on above: 1 Occurrences starting 04/19/2024 until 05/19/2025 PET+CT Guidance for localization of tumor of Skull base to mid-thigh-- W 18F-FDG IV NM PET/CT SKULL-THIGH SUBSEQUENT Radiology Routine History of lymphoma Lymph node enlargement 04/29/2024 3:28 PM EDT [facility] Work Phone: End: 11-15-2024 PROTEIN ELECTROPHORESIS SERUM (P) [facility] Work Phone: Comment on above: Once for 1 Occurrences starting 11/16/19 until 11/15/2024 [place] Immunizations Immunization Date Immunization Notes Care Provider [facility] 05-12-2024 influenza, high dose seasonal, preservative-free Connor Crawley DO Work Phone: [facility] 05-12-2024 SARS-CoV-2 mRNA (tozinameran 5y-11y) vaccine Marlys Olivia [facility] Comment on above: Result Comment: COvi d 19 mRNA, LN-S pfizer trus sucrose 05-12-2024 influenza virus vaccine, unspecified formulation Connor Crawley DO Work Phone: [facility] 03-21-2024 canakinumab Oni MCKEON [facility] Comment on above: Result Comment: RSV 03-21-2024 respiratory syncytia l virus (RSV) vaccine, adjuvanted (AREXVY) Tyler Draper MD Work Phone: [facility] 03-21-2024 RSV vaccine preF3, recombinant Marlys Corwin [facility] 07-02-2023 SARS-CoV-2 mRNA (tozinameran 5y-11y) vaccine Pito Patterson [facility] Comment on above: Result Comment: covi d 19 eneida sucrose [facility] 05-11-2023 influenza, high dose seasonal, preservative-free Pito Patterson [facility] 05-11-2023 influenza virus vaccine, unspecified formulation Tyler Draper MD Work Phone: [facility] 03-11-2022 SARS-CoV-2 mRNA (jzhjrfzmuyd-dhiy-ziphq se) vaccine Marlys Corwin [facility] 06-25-2021 SARS-CoV-2 (COVID-19 ) mRNA BNT-162b2 vax Marlys Corwin [facility] 05-24-2021 influenza (HD-IIV4) vaccine, age 65+ yr, high dose, quadrivalent, PF (FLUZONE HIGH-DOSE) Tyler Draper MD Work Phone: [facility] 05-24-2021 influenza virus vaccine, unspecified formulation Marlys Corwin [facility] 11-13-2020 COVID-19 vaccine, ag e 12+ yr (PFIZER-BIONTECH - PURPLE TOP) Hosea Herrera MD Work Phone: [facility] 10-22-2020 COVID-19 vaccine, ag e 12+ yr (PFIZER-BIONTECH - PURPLE TOP) Hosea Herrera MD Work Phone: [facility] 07-24-2020 zoster vaccine recombinant Marlys Corwin [facility] 07-22-2020 zoster vaccine recombinant Tyler Draper MD Work Phone: [facility] 05-09-2020 influenza (HD-IIV4) vaccine, age 65+ yr, high dose, quadrivalent, PF (FLUZONE HIGH-DOSE) Tyler Draper MD Work Phone: [facility] 05-09-2020 influenza virus vaccine, unspecified formulation Marlys Corwin [facility] 05-09-2020 tetanus toxoid, redu juvencio diphtheria toxoid, and acellular pertussis vaccine, adsorbed Marlys Corwin [facility] 05-09-2020 zoster vaccine recombinant Marlys Corwin [facility] 04-16-2019 influenza virus vaccine, unspecified formulation Marlys Corwin [facility] 04-16-2019 Seasonal trivalent influenza vaccine, adjuvanted, preservative free Tyler Draper MD Work Phone: [facility] 05-25-2018 influenza nasal, unspecified formulation Tyler Draper MD Work Phone: [facility] 05-25-2018 influenza virus vaccine, unspecified formulation Marlys Corwin [facility] 05-25-2018 influenza, injectabl e, quadrivalent, preservative free Hosea Herrera MD Work Phone: [facility] 05-25-2018 pneumococcal polysaccharide vaccine, 23 valent Hosea Herrera MD Work Phone: [facility] 04-26-2018 influenza nasal, unspecified formulation Tyler Draper MD Work Phone: [facility] 04-26-2018 influenza virus vaccine, unspecified formulation Marlys Corwin [facility] 04-26-2018 influenza, high dose seasonal, preservative-free Hosea Herrera MD Work Phone: [facility] 04-26-2018 pneumococcal polysaccharide vaccine, 23 valent Hosea Herrera MD Work Phone: [facility] 08-04-2017 influenza nasal, unspecified formulation Tyler Draper MD Work Phone: [facility] 08-04-2017 influenza virus vaccine, unspecified formulation Marlys Appiahab [facility] 08-04-2017 influenza, high dose seasonal, preservative-free Hosea Herrera MD Work Phone: [facility] 08-04-2017 pneumococcal conjuga te vaccine, 13 valent Hosea Herrera MD Work Phone: [facility] influenza vaccine qs 240 mcg, Patients 65 years and older,, PF, (FLUZONE HIGHDOSE QUAD 20-21 PF) 240 mcg/0.7 mL injection Hosea Herrera MD Work Phone: [facility] Comment on above: Fluzone High-Dose Qu ad 2020-21 (PF) 240 mcg/0.7 mL IM syringe PHARMACY ADMINISTERED influenza vaccine qs 240 mcg, Patients 65 years and older,, PF, (FLUZONE HIGHDOSE QUAD 20-21 PF) 240 mcg/0.7 mL injection Tyler Draper MD Work Phone: [facility] Comment on above: Fluzone High-Dose Qu ad 2020-21 (PF) 240 mcg/0.7 mL IM syringe PHARMACY ADMINISTERED influenza vaccine qs 240 mcg, Patients 65 years and older,, PF, (FLUZONE HIGHDOSE QUAD 20-21 PF) 240 mcg/0.7 mL injection Valerie Mayes RN [facility] influenza vaccine qs 240 mcg, Patients 65 years and older,, PF, (FLUZONE HIGHDOSE QUAD 20-21 PF) 240 mcg/0.7 mL injection Tyler Draper MD Work Phone: [facility] influenza vaccine qs 240 mcg, Patients 65 years and older,, PF, (FLUZONE HIGHDOSE QUAD 20-21 PF) 240 mcg/0.7 mL injection Tyler Draper MD Work Phone: [facility] influenza vaccine qs 240 mcg, Patients 65 years and older,, PF, (FLUZONE HIGHDOSE QUAD 20-21 PF) 240 mcg/0.7 mL injection Arrival Radiology Work Phone: [facility] Payers Date Payer Category Payer Medicare (Managed Care) [id number]. [id number] 2022 Private Health Insurance [id number] 2014 Medicare A[employer] MEDICARE A ETNA MEDICARE PPO [id number] 2014-Present [phone] [address] [place] [address] PPO [id number] 2012 Medicare [id number] 2012 Medicare [id number] 1959 Medicare [id number] 1959 Private Health Insurance [id number] Self-pay 1945 Unknown [id number] 1947 Unknown [id number] 1947 Unknown [id number] 1947 Unknown [id number] 1947 Unknown [id number] 2.16.840.1.728719.3.579.2. 593 1945 Unknown [id number] 2.16.840.1.260353.3.579.2. 593 1945 Unknown [id number] 2.16.840.1.028464.3.579.2. 593 1945 Unknown [id number] 2.16.840.1.492499.3.579.2. 593 1945 Unknown [id number] 2.16.840.1.228518.3.579.2. 593 1947 Unknown [id number] 2.16.840.1.710754.3.579.2. 593 1947 Unknown [id number] 2.16.840.1.026943.3.579.2. 593 1947 Unknown [id number] 2.840.1.973670.3.579.2. 593 1947 Unknown [id number] 2.16840.1.637216.3.579.2. 593 1947 Unknown [id number] 2.16.840.1.982311.3.579.2. 593 1947 Unknown [id number] 2.16840.1.207244.3.579.2. 593 1947 Unknown [id number] 2.840.1.672762.3.579.2. 593 1947 Unknown [id number] 2.16.840.1.062484.3.579.2. 593 1947 Unknown [id number] 2.16.840.1.671792.3.579.2. 593 1947 Unknown [id number] 2.16.840.1.831219.3.579.2. 593 1947 Unknown [id number] 2.16.840.1.523370.3.579.2. 593 1947 Unknown [id number] 2.16.840.1.577089.3.579.2. 593 1947 Unknown [id number] 2.16.840.1.420692.3.579.2. 1259 1947 Unknown [id number] 2.16.840.1.865508.3.579.2. 1259 1947 Unknown [id number] 2.16.840.1.245934.3.579.2. 125 1947 Unknown [id number] 2.16.840.1.629893.3.579.2. 125 1947 Unknown [id number] 2.16.840.1.969882.3.579.2. 125 1947 Unknown [id number] 2.16.840.1.790498.3.579.2. 1258 1947 Unknown [id number] 2.840.1.398507.3.579.2. 1947 Unknown [id number] 2.16.840.1.754592.3.579.2. 1947 Unknown [id number] 2.16.840.1.595402.3.579.2. 1947 Unknown [id number] 2.16840.1.453225.3.579.2. 72 1947 Unknown [id number] 2.16840.1.267258.3.579.2. 72 1947 Unknown [id number] 2.16.840.1.174343.3.579.2. 72 1947 Unknown [id number] 2.16.840.1.166820.3.579.2. 1947 Unknown [id number] 2.16.840.1.350500.3.579.2. 72 1947 Unknown [id number] 2.16840.1.396235.3.579.2. 727 1947 Unknown [id number] 2.16.840.1.127419.3.579.2. 727 1947 Unknown [id number] 2.16.840.1.698497.3.579.2. 727 1947 Unknown [id number] 2.16.840.1.384827.3.579.2. 727 1947 Unknown [id number] 2.16.840.1.507087.3.579.2. 72 Medicare Medicare Outpatient [id number] Unknown [id number] 2.16.840.1.374044.3.579.2. 593 Unknown Karl BC/BS [id number] Unknown [id number] 2.16.840.1.792900.3.579.2. 531 Social History Date Type Detail Facility Start: 11-19-2021 End: 02-15-2025 Tobacco smoking status Ex-smoker (finding) [facility] Comment on above: Patient states he sm oked cigarettes, 1 PPD from about 22 years old until about 42 years old. denies use. Former s moker. Quit 1987. Start: 07-30-2023 End: 08-04-2024 Sex Assigned At Male [facility] Start: 09-06-1968 End: 09-06-1988 History of tobacco use Current smoker [facility] Start: 09-06-2012 End: 08-04-2024 Cigarettes smoked current (pack per day) - Reported 1 [facility] Start: 09-06-2012 End: 05-03-2024 Tobacco use and exposure Smokeless tobacco non-user [facility] Start: 01-09-2022 End: 11-21-2024 Alcohol intake Current drinker of alcohol (finding) [facility] Start: 04-05-2019 History SDOH Alcohol Comment rare [facility] Start: 1945 Sex Assigned At Not on file [facility] Start: 12-30-2021 End: 01-09-2022 Exposure to SARS-CoV-2 (event) Not sure [facility] Start: 09-06-1968 End: 09-06-1988 History of tobacco use Cigarette Smoker [facility] History of tobacco use Passive smoker [facility] Tobacco smoking status Never [facility] [place] Comment on above: Patient states he sm oked cigarettes, 1 PPD from about 22 years old until about 42 years old. denies use. Former s moker. Quit 1987. Start: 05-03-2024 End: 02-02-2025 Alcoholic beverage intake Defer [facility] Start: 1945 Sex Assigned At Male [place] [facility] consumption unknown [facility] Sexual Orientation [facility] Start: 11-01-2016 Sex Male (finding) [facility] NEGATED: Highlighted rowStart: NINF History of tobacco use Passive smoker [facility] Goals Date Patient Goal Desired Activity /State Functional Status Date Assessment Result Facility 04-22-2024 Functional Status N/A [facility] 03-09-2023 Functional Status N/A [facility] 02-19-2015 Are you deaf, or do you have serious difficulty hearing No 02/19/2015 11:13 AM Otilia Mejía No [facility] 02-19-2015 Are you blind, or do you have serious difficulty seeing, even when wearing glasses No 02/19/2015 11:13 AM Otilia Mejía No [facility] 02-19-2015 Do you have serious difficulty walking or climbing stairs No 02/19/2015 11:13 AM Otilia Mejía No [facility] 02-19-2015 Do you have difficul ty dressing or bathing Yes 02/19/2015 11:13 AM tOilia Mejía Yes [facility] 02-20-2014 Because of a physica l, mental, or emotional condition, do you have difficulty doing errands alone such as visiting a physician's office or shopping No 02/20/2014 11:24 AM EDT Mario Otilia No [facility] Mental Status Date Assessment Result Facility 02-19-2015 Because of a physica l, mental, or emotional condition, do you have serious difficulty concentrating, remembering, or making decisions No 02/19/2015 11:13 AM EDT Mario Otilia No [facility] Clinical Notes 11-19-2021 to 02-15-2025 MARY [...] Follow these instructions at home: ??? Take hcgj-fiu-hsiwulp and prescription medicines only as told by [...] provider. Document Revised: 08/05/2022 Document Reviewed: 08/05/2022 [employer] Patient Education ? 2023 [employer]. Screening for Type 2 Diabetes A screening test for type 2 diabetes (type 2 diabetes mellitus) is a blood test to measure your blood sugar (glucose) level. This test is done to check for early signs of diabetes, before you develop symptoms (more content not included)... [facility] 02-02-2025 History of Present illness Narrative [...] limited to risks of scarring, darker or refresh technician pigmentary changes, recurrence, incomplete removal and infection. [...] Visit: 6 months documented in this encounter [facility] 11-24-2024 Telephone encounter Note Pt notified of BRM message below. She is agreeable to follow up with PCP, to discuss US. She denies any questions, needs or concerns at this time. Labs faxed to PCP, Dr Navarro Mayes RN [facility] 11-24-2024 Miscellaneous Notes Pt notified of BRM message below. She is agreeable to follow up with PCP, to discuss US. She denies any questions, needs or concerns at this time. Labs faxed to PCP, Dr Navarro Mayes, RN documented in this encounter [facility] 11-21-2024 Note HNO ID: [id number] Author: YOLANDA MONTAGUE MA Service: ? Author Type: Driving Instructor Type: Progress Notes Filed: 11/23/2024 09:37 Note Text: Pt very short of breath. Has oxygen at home. But declined using our oxygen.Yolanda Montague MA [facility] 11-21-2024 History of Present illness Narrative Pt very short of breath. Has oxygen at home. But declined using our oxygen.Yolanda Montague MA PATIENT NAME: Chiki FERNANDON: [id number] DATE: 11/21/2024 PRIMARY CARE PHYSICIAN: Dr. Pito [...] influenza A infection and was hospitalized at [facility]. Apparently his symptoms were severe enough [...] or inguinal regions. PATHOLOGY: 06/01/2024 Skin resection ([facility] A. Skin lesion from left cheek: [...] mid thoracic spine. 09/24/2021 Skeletal bone survey ([facility]) No lytic lesions suggestive of multiple [...] random TRUS prostate biopsies with prostate adenocarcinoma, Panora 4+3, 3 cores involved out of 9, [...] Dr. Jb Patterson, PCP Dr. Mayra Berg, Covered Buckle Assembler at [facility] documented in this encounter [facility] 11-19-2024 Note HNO ID: [id number] Author: TYLER DRAPER MD Service: ? Author [...] influenza A infection and was hospitalized at [facility]. Apparently his symptoms were severe enough [...] Ears: negative findings (more content not included)... [facility] 11-15-2024 History of Present illness Narrative [...] PATIENT PRESENTS WITH AN IMPLANTABLE OR ATTACHED PEST CONTROL TECHNICIAN: No RADIOLOGY DEPARTMENT: CT; Exam(s) Completed: Chest PERIPHERAL IV DATA: Site assessment: Clean,Dry and Intact, Site disposition Discontinued SIGNED BY: RT Sonya(R) November 15, 2024 3:18 PM documented in this encounter [facility] 11-15-2024 Note HNO ID: [id number] Author: BROOK DONALDSON RT(R) Service: ? Author [...] PATIENT PRESENTS WITH AN IMPLANTABLE OR ATTACHED PEST CONTROL TECHNICIAN: No RADIOLOGY DEPARTMENT: CT; Exam(s) Completed: Chest PERIPHERAL IV DATA: Site assessment: Clean,Dry and Intact, Site disposition Discontinued SIGNED BY: RT Sonya(Melodie) November 15, 2024 3:18 PM [facility] 11-15-2024 Note HNO ID: [id number] Author: MEG MCFARLAND RN Service: ? Author [...] DATE: November 15, 2024 TIME: 2:32 PM [facility] 10-21-2024 Note [place] [facility] Subjective Chiki Juarez is a 79 y.o. year old male patient being seen for follow up [facility]. EKG from the ED was questionable [...] is not of a cardiac etiology. His applied marine physics professor was treating him with steroids. He also [...] He was admitted to the hospital at [place] on 10/11/2024 due to COPD exacerbation and [...] cough and shortnes (more content not included)... [facility] 10-14-2024 Telephone encounter Note Please sign pended labs for 6 month f/u if agreeable-will draw with CT 1 week prior Thank You! Gloria Weinberg, RN [facility] 10-14-2024 Miscellaneous Notes Please sign pended labs for 6 month f/u if agreeable-will draw with CT 1 week prior Thank You! Gloria Weinberg RN documented in this encounter [facility] 08-04-2024 History of Present illness Narrative [...] limited to risks of scarring, darker or refresh technician pigmentary changes, recurrence, incomplete removal and infection. [...] months, skin check documented in this encounter [facility] 06-20-2024 History of Present illness Narrative Subjective [...] CDI policy. Malignant neoplasm of prostate ([facility]) 05/21/2023 Mass of leg 04/15/2024 MGUS (monoclonal gammopathy of unknown significance) 09/09/2023 Microscopic hematuria 05/21/2023 Mixed hyperglyceridemia ([facility]) 05/23/2022 Moderate persistent asthma without complication ([facility]) 05/31/2024 Nasal congestion 05/21/2023 Neuropathy, arm 05/21/2023 Obesity due to excess calories 05/31/2024 JUANA (obstructive sleep apnea) 04/15/2024 Other chronic pain 05/31/2024 Poor urinary stream 05/21/2023 Prostate nodule 05/21/2023 Pulmonary hypertension ([facility]) 07/02/2023 Noted in 05/21/2023 [place] page 1, added per outpatient CDI policy. 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[facility]) 07/02/2023 Recurrent pneumonia 07/17/2021 Severe obesity (BMI 35.0-39.9) with comorbidity ([facility]) 08/03/2020 Ventral hernia 05/21/2023 Wheezing 07/02/2023 Current [...] Partner Violence: Unknown (10/08/2023) Received from [facility] [place] [facility] Fear of Current [...] of distress Assessment/Plan documented in this encounter [facility] 06-13-2024 Telephone encounter Note Patient is scheduled 11/15/24 at 1:30 PM Shea Kolb PSS [facility] 06-13-2024 Miscellaneous Notes Patient is scheduled 11/15/24 at 1:30 PM Shea Kolb PSS notified and transferred to [facility] to schedule CT as recommended prior to return visit with BRM. Valerie Maeys RN A voicemail was left on Chiki's [...] Valerie Mayes RN documented in this encounter [facility] 06-13-2024 Telephone encounter Note notified and transferred to PSS to schedule CT as recommended prior to return visit with BRM. Valerie Mayes RN [facility] 06-10-2024 Telephone encounter Note A voicemail was left on Chiki's phone to return our call to schedule a CT for November. Shea Kolb PSS [facility] 06-10-[address] Mayra [...] to return visit 11/21/24 Valerie Mayes RN [facility] 06-09-2024 History of Present illness Narrative [...] for 10 days. documented in this encounter [facility] 06-05-2024 Note HNO ID: [id number] Author: TYLER DRAPER MD Service: ? Author [...] infection Head: normal (more content not included)... [facility] 06-05-2024 History of Present illness Narrative [...] mid thoracic spine. 09/24/2021 Skeletal bone survey ([facility]) No lytic lesions suggestive of multiple [...] random TRUS prostate biopsies with prostate adenocarcinoma, Panora 4+3, 3 cores involved out of 9, [...] Tyler Draper MD CC: Dr. Mayra Berg, Covered Buckle Assembler at [facility] documented in this encounter [facility] 05-31-2024 History of Present illness Narrative [...] Partner Violence: Unknown (10/08/2023) Received from [facility] Fear of Current [...] He fully understands. documented in this encounter [facility] 05-17-2024 Note Patient Education Nutrition BMI for [...] for Disease Control and Prevention: cdc.gov ? [place] Heart Association: heart.org ? National Heart, Lung, and Blood [place]: nhlbi.nih.gov This information is not intended to replace advice given to you by your health care provider. Make sure you discuss any questions you have with your health care provider. Document Revised: 04/23/2023 Document Reviewed: 04/16/2023 [employer] Patient Education ? 2023 [employer]. [facility] 05-13-2024 Note [place] [facility] Subjective Chiki Juarez is a 79 y.o. year old male patient being seen for 6 mo follow up c,CANO, hyperlipidemia, and complete AV block s/p PPM. His device was interrogated a few weeks ago in the office. He has completed pulmonary rehab. Says his SOB has slightly improved since last visit in October 2023. His applied marine physics professor at [employer] told him his PFT's had slightly [...] is not of a cardiac etiology. His applied marine physics professor was treating him with steroids. He also [...] Objective Visit Vitals (more content not included)... [facility] 05-03-2024 History of Present illness Narrative Images [...] limited to risks of scarring, darker or refresh technician pigmentary changes, recurrence, incomplete removal and infection. [...] mo th FBSE documented in this encounter [facility] 04-29-2024 History of Present illness Narrative Radiology [...] 1333 PATIENT DISCHARGED TO: Ambulatory patient, left [place] department area. A Diagnostic radioactive procedure has taken place, with no further precautions necessary other than routine body substance precautions. More information regarding radiation safety can be found using this link: [email or web address] [email or web address] [email or web address] SIGNATURE: RT Sonya(R) PATIENT NAME: Chiki Juarez DATE: April 29, 2024 TIME: 1:44 PM PAGER/CONTACT #: documented in this encounter [facility] 04-29-2024 Note HNO ID: [id number] Author: GLORIA WEINBERG RN Service: ? Author [...] DATE: April 29, 2024 TIME: 1:35 PM [facility] 04-29-2024 Note HNO ID: [id number] Author: BROOK DONALDSON RT(R) Service: ? Author [...] 29, 2024 TIME: 1:44 PM PAGER/CONTACT #: [facility] 04-26-2024 Telephone encounter Note Patient is scheduled with MARY Simmons on 05/03/24 @ 11:00. [facility] 04-26-2024 Miscellaneous Notes Patient is scheduled with MARY Simmons on 05/03/24 @ 11:00. Records faxed to [facility]. Rhona: Information ready for you. Jennie Velasquez Please ref patient to [facility]. Dx Skin Lesion blaise facial area. Their office to call the patient to schedule/ Rhona, Please fax records Julius, Please follow up on this appt. documented in this encounter [facility] 04-22-2024 Hospital Discharge instructions Patient Education [...] treatment? Where to find more information The [place] Cancer Society: www.cancer.org [employer] Association: www.auanet.org Contact a health care [...] provider. Document Revised: 01/27/2022 Document Reviewed: 01/27/2022 [employer] Patient Education 2023 [employer]. Follow Up Care 03/09/2023 12:17:11 With:MIKE VENTURA, Oni Sewell, URL Address: [facility] [address] [place] [address]- [phone] When: Unknown [facility] 04-22-2024 Note Patient Education Oncology Prostate Cancer [...] Where to find more information ? The [place] Cancer Society: www.cancer.org ? [employer] Association: www.auanet.org Contact a health care [...] of the rectum. (more content not included)... [facility] 04-20-2024 Telephone encounter Note Records faxed to [facility]. [facility] 04-20-2024 Telephone encounter Note Rhona: Information ready for you. Jennie Velasquez [facility] 04-19-2024 Telephone encounter Note Please ref patient to [facility]. Dx Skin Lesion blaise facial area. Their office to call the patient to schedule/ Rhona, Please fax records Julius, Please follow up on this appt. [facility] 04-18-2024 Note HNO ID: [id number] Author: TYLER DRAPER MD Service: ? Author [...] visit here 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[facility] for his chronic [...] date: COPD (chronic obstructive pulmonary disease) ([facility]) No date: COVID No date: Cystic fibrosis [...] itching. HEMATOLOGY/LYMPHOLOGY: Neg (more content not included)... [facility] 04-18-2024 History of Present illness Narrative [...] visit here 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[facility] for his chronic [...] Acute maxillary sinusitis No date: Cancer ([facility]) Comment: Lymphoma No date: Chronic bronchitis with emphysema No date: COPD (chronic obstructive pulmonary disease) ([facility]) No date: COVID No date: Cystic fibrosis gene carrier No date: Dysarthria following nontraumatic intracerebral hemorrhage No date: Hypothyroidism No date: Hypoxemia No date: Multiple myeloma ([facility]) No date: Pulmonary edema No date: Stroke ([facility]) No date: Thyroid disease Comment: aquired due [...] mid thoracic spine. 09/24/2021 Skeletal bone survey ([facility]) No lytic lesions suggestive of multiple [...] random TRUS prostate biopsies with prostate adenocarcinoma, Panora 4+3, 3 cores involved out of 9, [...] Tyler Draper MD CC: Dr. Mayra Berg, Covered Buckle Assembler at [facility] documented in this encounter [facility] 02-02-2024 Telephone encounter Note Pt informed of BRMy 1% message and denies any questions, needs or concerns at this time. Appointment verified. Valerie Mayes RN [facility] 02-02-2024 Miscellaneous Notes Pt informed of BRM message and denies any questions, needs or concerns at this time. Appointment verified. Valerie Mayes RN ----- Message from Tyler Draper MD sent at 02/02/2024 8:08 AM EDT ----- Please inform the patient that his labs are stable. We will continue observation and see him back as scheduled. documented in this encounter [facility] 02-02-2024 Telephone encounter Note ----- Message from Tyler Draper MD sent at 02/02/2024 8:08 AM EDT ----- Please inform the patient that his labs are stable. We will continue observation and see him back as scheduled. [facility] 03-31-2023 Hospital Discharge instructions Patient Education [...] [facility] [address] [place] [address]- Business (1) When:03/31/2024 11:58:05 Comments:With a renal ultrasound [facility] 03-09-2023 Hospital Discharge instructions Patient [...] urethra. Follow these instructions at home: Take kzjl-shn-hczmplt and prescription medicines only as told by [...] provider. Document Revised: 02/19/2022 Document Reviewed: 02/19/2022 [employer] Patient Education 2022 [employer]. Follow Up Care 02/13/2023 11:39:29 With:MIKE VENTURA, Oni Sewell, URL Address: [facility] [address] [place] [address]- [phone] When: Unknown Comments:schedule cysto and renal US1 yr w/ PSA [facility] [place] 08-05-2022 Miscellaneous Notes Informed pt of Dr Draper's message. Pt verbalized understanding and denies further needs at this time. Aby Hernandez RN ----- Message from Tyler Draper MD sent at 08/04/2022 12:29 PM EST ----- Please inform the patient that his PSA is stable at 0.26. We will continue as planned. Thanks, BRM documented in this encounter [facility] 07-25-2022 Miscellaneous Notes Spoke to patient [...] awhile please advise documented in this encounter [facility] 01-16-2022 History of Present illness Narrative [...] random TRUS prostate biopsies with prostate adenocarcinoma, Panora 4+3, 3 cores involved out of 9, [...] carrier of cystic fibrosis. Patient lives in [place], [place] with his , Nicolasa. He has 4 children. He has a 38-tueo-pith smoking history and quit in 1986. He [...] Thus, a bone marrow biopsy would not record changer assembler and it is okay to hold off [...] CC: Will Sherwood documented in this encounter [facility] 01-09-2022 History of Present illness Narrative [...] random TRUS prostate biopsies with prostate adenocarcinoma, Panora 4+3, 3 cores involved out of 9, [...] carrier of cystic fibrosis. Patient lives in [place], [place] with his , Nicolasa. He has 4 children. He has a 56-gyek-qlqp smoking history and quit in 1986. He [...] Thus, a bone marrow biopsy would not record changer assembler and it is okay to hold off for now. PSA stable at 0.30. He will follow up with Dr. Sousa for his history of prostate cancer. Hosea Herrera MD I spent a total of 20 minutes on the date of the service which included preparing to see the patient, xhcm-rm-wxsm patient care, completing clinical documentation, obtaining and/or reviewing separately obtained history, performing a medically appropriate examination, counseling and educating the patient/family/caregiver, ordering medications, tests, or procedures, independently interpreting results (not separately reported) and communicating results to the patient/family/caregiver. CC: Will Sherwood documented in this encounter [facility] 11-19-2021 Hospital Discharge instructions Patient Education [...] who: Are older than age 65. Are -Wel[place]. Are obese. Have a family history of [...] cells. Follow these instructions at home: Take bdsp-kfx-xzalwco and prescription medicines only as told by [...] 08/03/2006 Document Revised: 07/16/2018 Document Reviewed: 04/13/2017 [employer] Patient Education 2020 [employer]. Follow Up Care 10/30/2020 10:17:46 With:Young Manriquez MD, Romeo Valles, URO Address: [facility] [address] [place] [address]- [phone] When: Unknown [facility] Evaluation + Plan note Future Appointments Appointment Date:11/25/2022 10:15:00 AM Scheduled Provider:Romeo Vidal Jr., MD Location:[facility] Appointment Type:URO Office Visit [facility] Evaluation + Plan note Future Appointments Appointment Date:01/22/2024 11:00:00 AM Scheduled Provider: [facility] Appoint[facility] Type:FM Medicare Wellness Subsequent Diagnostic Tests PendingT3 Free 01/26/23 [facility] Evaluation + Plan note Future Appointments Appointment Date:03/24/2023 10:00:00 AM Scheduled Provider: Location:[facility] Appointment Type:Urology CALL PAT FT Appointment Date:03/31/2023 11:15:00 AM Scheduled Provider: Location:[facility] Appointment Type:Urology FT Appointment Date:01/22/2024 11:00:00 AM Scheduled Provider: Location:[facility] Appointment Type:FM Medicare Wellness Subsequent Appointment Date:03/14/2024 11:15:00 AM Scheduled Provider:Oni MCKEON MD [facility] Type:URO Office Visit Diagnostic Tests PendingPSA Total 03/09/23 [facility] Evaluation + Plan note Future Appointments Appointment Date:01/22/2024 11:00:00 AM Scheduled Provider: Location[facility] Appointment Type:FM Medicare Wellness Subsequent Appointment Date:03/14/2024 11:15:00 AM Scheduled Provider:Oni MCKEON MD [facility] App[facility] Type:URO Office Visit [facility] Evaluation + Plan note Future Appointments Appointment Date:12/02/2023 01:00:00 PM Scheduled Provider:Pito Patterson MD Location:[facility] Appointment Type:FM Open Appointment Date:01/18/2024 01:00:00 PM Scheduled Provider:Pito Patterson MD Location:[facility] Appointment Type:FM Open Appointment Date:01/22/2024 11:00:00 AM Scheduled Provider: Location:[facility] Appointment Type: Medicare Wellness Subsequent Appointment Date:03/14/2024 11:15:00 AM Scheduled Provider:Oni MCKEON MD Location:[facility] Appointment Type:URO Office Visit [facility] Evaluation + Plan note Future Appointments Appointment Date:05/17/2024 10:00:00 AM Scheduled Provider:Pito Patterson MD Location:[facility] Appointment Type: Open Appointment Date:02/14/2025 08:00:00 AM Scheduled Provider: Location:[facility] Appointment Type: Medicare Wellness Subsequent Appointment Date:04/24/2025 09:45:00 AM Scheduled Provider:Oni MCKEON MD Location:[facility] Appointment Type:URO Office Visit Diagnostic Tests PendingPSA Total 04/22/24 [facility] Evaluation + Plan note Future Appointments Appointment Date:04/24/2025 09:45:00 AM Scheduled Provider:Oni MCKEON MD Location:[facility] Appointment Type:URO Office Visit Appointment Date:02/15/2026 09:30:00 AM Scheduled Provider: Location:[facility] Appointment Type: Medicare Wellness Subsequent Diagnostic Tests PendingHCV Antibody RFX to Quant PCR 02/16/25 [facility] Evaluation note Diagnosis MGUS (monoclonal gammopathy of unknown significance)- Primary Monoclonal paraproteinemia [facility] Diagnosis B12 deficiency- Primary Other B-complex deficiencies Diffuse large B-cell lymphoma, unspecified body region (HCC) [facility]* Diagnosis MGUS (monoclonal gammopathy of unknown significance)- Primary Monoclonal paraproteinemia Macrocytic anemia Unspecified deficiency anemia [facility] Diagnosis MGUS (monoclonal gammopathy of unknown significance)- Primary Monoclonal paraproteinemia History of lymphoma Personal history of other lymphatic and hematopoietic neoplasm Lymph node enlargement Enlargement of lymph nodes Skin lesion of face Unspecified disorder of skin and subcutaneous tissue [facility] Diagnosis History of lymphoma Personal history of other lymphatic and hematopoietic neoplasm Lymph node enlargement Enlargement of lymph nodes [facility] Diagnosis Squamous cell carcinoma of scalp- Primary Other malignant neoplasm of scalp and skin of neck 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 documented in this encounter [facility] HealthcareEvaluation noteNo assessment information availableWvumedicine [facility] Work Phone: Evaluation note* Diagnosis MGUS (monoclonal gammopathy of unknown significance)- Primary Monoclonal paraproteinemia History of lymphoma Personal history of other lymphatic and hematopoietic neoplasm History of prostate cancer Personal history of malignant neoplasm of prostate Skin lesion of face Unspecified disorder of skin and subcutaneous tissue [facility] Diagnosis Wound infection- Primary Posttraumatic wound infection not elsewhere classified Squamous cell carcinoma of scalp Other malignant neoplasm of scalp and skin of neck [facility] Localized enlarged lymph nodes- Primary Enlargement of lymph nodes [facility] Diagnosis Squamous cell carcinoma of scalp- Primary Other malignant neoplasm of scalp and skin of neck Wound infection Posttraumatic wound infection not elsewhere classified Thyroid nodule (CMS/HCC) Nontoxic uninodular goiter [facility] Diagnosis Hemangioma of skin and subcutaneous tissue- Primary Neoplasm of unspecified behavior of bone, soft tissue, and skin Seborrheic keratosis Actinic keratosis documented in this encounter [facility] HealthcareEvaluation note* Diagnosis Capillary angioma- Primary Nevus, non-neoplastic Melanocytic nevus of trunk Benign neoplasm of skin of trunk, except scrotum Seborrheic keratosis Actinic keratosis History of SCC (squamous cell carcinoma) of skin Personal history of other malignant neoplasm of skin Lentigo simplex Other dyschromia [facility] Diagnosis Diffuse large B-cell lymphoma, unspecified body region (HCC)- Primary [facility]* Diagnosis Localized enlarged lymph nodes Enlargement of lymph nodes Diffuse large B-cell lymphoma, unspecified body region (HCC) [facility] Diagnosis MGUS (monoclonal gammopathy of unknown significance)- Primary Monoclonal paraproteinemia History of prostate cancer Personal history of malignant neoplasm of prostate Acquired hypothyroidism Unspecified hypothyroidism [facility]* Diagnosis Melanocytic nevus of trunk- Primary Benign neoplasm of skin of trunk, except scrotum History of SCC (squamous cell carcinoma) of skin Personal history of other malignant neoplasm of skin Seborrheic keratosis Actinic keratosis Ayala angioma Other seborrheic dermatitis documented in this encounter [facility] HealthcareHospital course Narrative No data available for this section [facility] Hospital Discharge instructions No data available for this section [facility] Additional Instructions No exertional [...] or concerns Follow-up in the office as scheduledW[facility]umed[facility] Work Phone: Progress note No data available for this section [facility] Summary Purpose Family History No Family History Records Found Relationship Condition Age at Onset Recorded Date/T ruma mother Malignant neoplasm of lung Unknown Unknown Advance Directives No Advanced Directives Records Found Advance Directive Response Recorded Date/ Time Advance Directives No June 01, 2024 10:37am Hospital Course Note MR#: [id number] [facility] Pt. Name: Chiki Juarez Admitted: [...] asthma, lymphoma, and hypothyroidism, who transferred to [facility] for evaluation of poss (more content not included)... Reason for Referral Specialty Diagnoses / Procedures Referred By Chelsie t Referred To Contact CT IMAGING Diagnoses Localized enlarged lymph nodes Procedures CT CHEST W IVCON DIAGNOSTIC COMPUTED TOMOGRAPHY THORAX W/CONTRAST Tyler Draper MD [address] [place] [address] [place] [address] Ct Imaging [place] [address] Referral ID Status Reason Start Date Expiration Date Visits Requested Visits Authorized [id number] Authorized Auto-Generat ed Referral 11/15/2024 07/10/2025 1 1 Specialty Diagnoses / Procedures Referred By Chelsie t Referred To Contact Dermatology Diagnoses Skin lesion of face Procedures CONSULT TO DERMATOLOGY OFFICE/OUTPATIENT [facility] 60 MINUTES Tyler Draper MD [address] [place] [address] [place] [address] Referral ID Status Reason Start Date Expiration Date Visits Requested Visits Authorized [id number] Authorized PCP Requested Referral 04/19/2024 04/19/2025 1 1 Specialty Diagnoses / Procedures Referred By Chelsie simon Referred To Contact MOLECULAR & FUNCTIONAL IMAGING Diagnoses History of lymphoma Lymph node enlargement Procedures NM PET/CT SKULL-THIGH SUBSEQUENT PET IMAGING CT ATTENUATION SKULL BASE MID-THIGH Tyler Draper MD [address] [place] [address] [place] [address] Molecular & Functional Imaging [address] [place] [address] Referral ID Status Reason Start Date Expiration Date Visits Requested Visits Authorized [id number] Authorized Auto-Generat ed Referral 04/19/2024 05/19/2025 1 [...] DATE CREATED AUTHOR 07/16/2020 [facility] DATE CREATED AUTHOR AUTHOR'S ORGANIZ ATION 04/26/2022 [facility] DATE CREATED AUTHOR AUTHOR'S ORGANIZ ATION 10/16/2024 [facility] DATE CREATED AUTHOR AUTHOR'S ORGANIZ ATION 11/24/2024 [facility] DATE CREATED AUTHOR AUTHOR'S ORGANIZ ATION 02/05/2025 [facility] DATE CREATED AUTHOR AUTHOR'S ORGANIZ ATION 02/19/2025 [facility] DATE CREATED AUTHOR AUTHOR'S ORGANIZ ATION 02/22/2025 [facility] DATE CREATED AUTHOR AUTHOR'S ORGANIZ ATION 02/27/2025 [facility] DATE CREATED AUTHOR AUTHOR'S ORGANIZ ATION 03/03/2025 [facility] Source Comments (unrecognize d section and content) In the event this informatio n is protected by the Federal Confidentiality of Alcohol and Drug Abuse Patient Records regulations: The Federal rules restrict any use of the information to criminally investigate or prosecute any alcohol or drug abuse patient.[facility] the event this information is protected by the Federal Confidentiality of Alcohol and Drug Abuse Patient Records regulations: The Federal rules restrict any use of the information to criminally investigate or prosecute any alcohol or drug abuse patient.[facility] Hospital[facility] the event this information is protected by the Federal Confidentiality of Alcohol and Drug Abuse Patient Records regulations: The Federal rules restrict any use of the information to criminally investigate or prosecute any alcohol or drug abuse patient.[facility] HospitalIn the event this information is protected by the Federal Confidentiality of Alcohol and Drug Abuse Patient Records regulations: The Federal rules restrict any use of the information to criminally investigate or prosecute any alcohol or drug abuse patient.[facility] HospitalIn the event this information is protected by the Federal Confidentiality of Alcohol and Drug Abuse Patient Records regulations: The Federal rules restrict any use of the information to criminally investigate or prosecute any alcohol or drug abuse patient.[facility] Hospital[facility] the event this information is protected by the Federal Confidentiality of Alcohol and Drug Abuse Patient Records regulations: The Federal rules restrict any use of the information to criminally investigate or prosecute any alcohol or drug abuse patient.[facility] HospitalIn the event this information is protected by the Federal Confidentiality of Alcohol and Drug Abuse Patient Records regulations: The Federal rules restrict any use of the information to criminally investigate or prosecute any alcohol or drug abuse patient.[facility] HospitalIn the event this information is protected by the Federal Confidentiality of Alcohol and Drug Abuse Patient Records regulations: The Federal rules restrict any use of the information to criminally investigate or prosecute any alcohol or drug abuse patient.[facility] Hospital[facility] the event this information is protected by the Federal Confidentiality of Alcohol and Drug Abuse Patient Records regulations: The Federal rules restrict any use of the information to criminally investigate or prosecute any alcohol or drug abuse patient.[facility] HospitalIn the event this information is protected by the Federal Confidentiality of Alcohol and Drug Abuse Patient Records regulations: The Federal rules restrict any use of the information to criminally investigate or prosecute any alcohol or drug abuse patient.[facility] HospitalIn the event this information is protected by the Federal Confidentiality of Alcohol and Drug Abuse Patient Records regulations: The Federal rules restrict any use of the information to criminally investigate or prosecute any alcohol or drug abuse patient.[facility] HospitalIn the event this information is protected by the Federal Confidentiality of Alcohol and Drug Abuse Patient Records regulations: The Federal rules restrict any use of the information to criminally investigate or prosecute any alcohol or drug abuse patient.[facility] HospitalIn the event this information is protected by the Federal Confidentiality of Alcohol and Drug Abuse Patient Records regulations: The Federal rules restrict any use of the information to criminally investigate or prosecute any alcohol or drug abuse patient.[facility] HospitalIn the event this information is protected by the Federal Confidentiality of Alcohol and Drug Abuse Patient Records regulations: The Federal rules restrict any use of the information to criminally investigate or prosecute any alcohol or drug abuse patient.[facility] HospitalIn the event this information is protected by the Federal Confidentiality of Alcohol and Drug Abuse Patient Records regulations: The Federal rules restrict any use of the information to criminally investigate or prosecute any alcohol or drug abuse patient.[facility] Reason for Visit (unrecogniz ed section [...] ATTENUATION SKULL BASE MID-THIGH Tyler Draper MD [address] [place] [address] [place] [address] Molecular & Functional Imaging [address] [place] [address] Referral ID Status Reason Start Date Expiration Date V isits Requested Visits Authorized [id number] Closed Auto-Generate d Referral 04/19/2024 05/19/2025 1 1 Reason Comments Suspicious Skin Lesion New patient : SCC left cheek / right scalp Specialty Diagnoses / Procedures Referred By Chelsie simon Referred To Contact Otolaryngology Diagnoses 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 Procedures TX OFFICE/OUTPATIENT NEW HIGH MDM 60 MINUTES Crys Taylor PA [address] [place] [address] Phone: tel: fax: Connor Crawley, DO [address] [place] [address] Phone: tel: fax: Referral ID Status Reason Start Date Expiration Date V isits Requested Visits Authorized [id number] Closed Specialty Services Required 05/09/2024 11/05/2024 1 1 Reason Comments 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) Reason Comments Post-op Post op exc SCC scal p Reason Comments Pet results Reason Comments Post-op Specialty Diagnoses / Procedures Referred By Contac t Referred To Contact Dermatology Diagnoses skin lesion of face Procedures office visit Tyler Draper MD [address] [place] [address] Lucie Tompkins MD [address] [facility] [address] [place] [address] Referral ID Status Reason Start Date Expiration Date Visits Re quested Visits Authorized [id number] Closed 04/21/2024 10/18/2024 1 1 Reason Comments Skin Check Reason Comments Orders Reason Comments Radiology CT Specialty Diagnoses / Procedures Referred By Contac t Referred To Contact CT IMAGING Diagnoses Localized enlarged lymph nodes Procedures CT CHEST W IVCON DIAGNOSTIC COMPUTED TOMOGRAPHY THORAX W/CONTRAST Tyler Draper MD [address] [place] [address] Phone: tel: fax: [place] [address] Referral ID Status Reason Start Date Expiration Date V isits Requested Visits Authorized [id number] Closed Auto-Generate d Referral 11/15/2024 07/10/2025 1 1 Reason Comments MGUS Reason Onset Date Comments TSH results 11/24/2024 Care Teams (unrecognized sec tion and content) Delivery And Mail Sorter Relationship Specialty Start Date End Date Will Sherwood MD [address] [place] [address] PCP - General 08/01/05 Delivery And Mail Sorter Relationship Specialty Start Date End Date Will Sherwood MD [address] [facility] [address] PCP - General 08/01/05 Delivery And Mail Sorter Relationship Specialty Start Date End Date Will Sherwood MD [address] [place] [address] PCP - General 08/01/05 Delivery And Mail Sorter Relationship Specialty Start Date End Date Will Sherwood MD [address] [place] [address] PCP - General 08/01/05 Delivery And Mail Sorter Relationship Specialty Start Date End Date Pito Patterson MD [address] [address] PCP - General Family Medicine 07/23/23 Delivery And Mail Sorter Relationship Specialty Start Date End Date Pito Patterson MD [address] [place] [address] PCP - General Family Medicine 07/23/23 Delivery And Mail Sorter Relationship Specialty Start Date End Date Pito Patterson MD [address] [place] [address] PCP - General Family Medicine 07/23/23 Delivery And Mail Sorter Relationship Specialty Start Date End Date Pito Patterson MD [address] [place] [address] PCP - General Family Medicine 07/23/23 Delivery And Mail Sorter Relationship Specialty Start Date End Date Unallocated, Noms MD [address] [place] [address] PCP - General Family Medicine 04/08/23 Crys Taylor PA [address] [place] [address] Physician Product Management Internship Dermatology 05/31/24 Connor Crawley DO [address] [place] [address] Otolaryngology 05/31/24 Delivery And Mail Sorter Relationship Specialty Start Date End Date Pito Patterson MD [address] [place] [address] PCP - General Family Medicine 05/31/24 Crys Taylor PA [address] [place] [address] Physician Product Management Internship Dermatology 05/31/24 Connor Crawley DO [address] [place] [address] Otolaryngology 05/31/24 Team Status: Active Member Role Status Dates Pito Patterson MD Primary Care Provider Active Team Status: Inactive Member Role Status Dates Connor Crawley DO Attending Provider Active S tart: June 01, 2024 End: June 01, 2024 Pito Patterson MD Primary Care Provider Active Start: June 01, 2024 End: June 01, 2024 Delivery And Mail Sorter Relationship Specialty Start Date End Date Pito Patterson MD [address] [place] [address] PCP - General Family Medicine 05/31/24 Crys Taylor PA [address] [place] [address] Physician Product Management Internship Dermatology 05/31/24 Connor Crawley DO [address] [place] [address] Otolaryngology 05/31/24 Delivery And Mail Sorter Relationship Specialty Start Date End Date Pito Patterson MD [address] [place] [address] PCP - General Family Medicine 07/23/23 Delivery And Mail Sorter Relationship Specialty Start Date End Date Pito Patterson MD [address] [place] [address] PCP - General Family Medicine 05/31/24 Crys Taylor PA [address] [place] [address] Physician Product Management Internship Dermatology 05/31/24 Connor Crawley DO [address] [place] [address] Otolaryngology 05/31/24 Delivery And Mail Sorter Relationship Specialty Start Date End Date Unallocated, Mohit Galvan MD [address] [place] [address] PCP - General Family Medicine 04/08/23 Delivery And Mail Sorter Relationship Specialty Start Date End Date Unallocated, Mohit Galvan MD [address] [facility] [place] [address] PCP - General Family Medicine 04/08/23 Delivery And Mail Sorter Relationship Specialty Start Date End Date Pito Patterson MD [address] [place] [phone] PCP - General Family Medicine 05/31/24 Crys Taylor PA [address] [place] [address] Physician Product Management Internship Dermatology 05/31/24 Connro Crawley DO [address] [place] [address] Otolaryngology 05/31/24 Delivery And Mail Sorter Relationship Specialty Start Date End Date Pito Patterson MD [address] [place] [address] PCP - General Family Medicine 07/23/23 Delivery And Mail Sorter Relationship Specialty Start Date End Date Pito Patterson MD [address] [place] [address] PCP - General Family Medicine 07/23/23 Delivery And Mail Sorter Relationship Specialty Start Date End Date Pito Patterson MD [address] [place] [address] PCP - General Family Medicine 07/23/23 Delivery And Mail Sorter Relationship Specialty Start Date End Date Pito Patterson MD [address] [place] [address] PCP - General Family Medicine 07/23/23 Delivery And Mail Sorter Relationship Specialty Start Date End Date Pito Patterson MD [address] [place] [address] PCP - General Family Medicine 05/31/24 Crys Taylor PA [address] [place] [address] Physician Product Management Internship Dermatology 05/31/24 Connor Carwley DO [address] [place] [address] Otolaryngology 05/31/24 Delivery And Mail Sorter Relationship Specialty Start Date End Date Pito Patterson MD [address] [place] [address] PCP - General Family Medicine 05/31/24 Crys Taylor PA [address] [place] [address] Physician Product Management Internship Dermatology 05/31/24 Connor Crawley DO [address] [place] [address] Otolaryngology 05/31/24 FOR RECORDS PERTAINING TO PATIENTS [...] BE BASED ON THE PRIMARY CLINICAL RECORDS. [facility]. provides no warranty or guarantee of the accuracy or completeness of information in this document.
--- OUTSIDE RECORDS SUMMARY | 2025-03-06 07:00 | XMS_ITS | CCD ---
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 (2 sources) Latex Propensity to [...] 1 VIAL VIA NEBULIZER EVERY 4 HOURS, [facility], 168, cm, 08/25/24 11:21:00 EST, Height/Length Dosing, [...] 1 VIAL VIA NEBULIZER EVERY 4 HOURS, [facility], 161, cm, 02/15/24 10:32:00 EDT, Height/Length Dosing, 102, kg, 02/15/24 10:32:00 EDT, Weight Dosing Start Date: 02/22/24 Status: Ordered Start: 10-19-2023 take 1 dose by inhal ation every four hours albuterol 0.083% Inh Kasie 3 mL See Instructions, 300 mL, Refill(s) 3, INHALE 1 VIAL VIA NEBULIZER EVERY 4 HOURS, [facility]pharmacy #[id number], 168, cm, 10/19/23 8:08:00 EST, Height/Length [...] 1 VIAL VIA NEBULIZER EVERY 6 HOURS, [facility] 84[facility], 162, cm, 10/28/22 15:18:00 EDT, Height/Length Dosing, [...] DAY, # 360 mL, Refills(s) 3, Pharmacy: [facility] STORE [id number], 168, cm, 04/22/24 10:00:00 EDT, Height/Length Dosing, [...] BID, # 120 mL, Refills(s) 11, Pharmacy: [facility]/pharmacy #[id number], 168, cm, 10/19/23 8:08:00 [...] BID, # 120 mL, Refills(s) 11, Pharmacy: [facility]/pharmacy #[id number], 162, cm, 10/28/22 15:18:00 [...] 03-09-2023 take 1 capsule by [facility] once daily at bedtime gabapentin 300 mg Cap 300 mg = 1 cap(s), Oral, Once a day (at bedtime), # 30 cap(s), Refills(s) 0, Pharmacy: [facility]/pharmacy #[id number], 168, cm, 03/09/23 11:04:00 EDT, Height/Length Dosing, 103, kg, 03/09/23 11:04:00 EDT, Weight Dosing Start Date: 03/09/23 Status: Ordered Start: 01-22-2023 take 1 capsule by [facility] once daily at bedtime gabapentin 300 mg Cap 300 mg = 1 cap(s), Oral, Once a day (at bedtime), # 30 cap(s), Refills(s) 0, Pharmacy: [facility]/pharmacy #[id number], 162, cm, 01/22/23 13:19:00 [...] nasal route twice daily ipratropium Nasal 0.06% Blakeslee 2 spray(s), Nasal, BID for 90 day(s), 45 mL, Refill(s) 3, PLACE 2 SPRAYS IN EACH NOSTRIL TWO TIMES DAILY., [facility]/pharmacy #[id number], 168, cm, 03/09/23 11:04:00 EDT, Height/Length Dosing, 103, kg, 03/09/23 11:04:00 EDT, Weight Dosing Start Date: 03/13/23 Stop Date: 03/07/24 Status: Ordered Start: 02-20-2023 take 1 dose nasal ro [place] twice daily, then take 2 spray(s) nasal route twice daily ipratropium Nasal 0.06% Blakeslee 2 spray(s), Nasal, BID, 1 EA, Refill(s) 1, PLACE 2 SPRAYS IN EACH NOSTRIL TWO TIMES DAILY., [facility]/pharmacy #[id number], 162, cm, 01/22/23 13:19:00 EDT, Height/Length Dosing, 98.3, kg, 01/22/23 13:19:00 EDT, Weight Dosing Start Date: 02/20/23 Status: Ordered Start: 01-22-2023 take 1 dose nasal ro [place] twice daily, then take 2 spray(s) nasal route twice daily ipratropium Nasal 0.06% Blakeslee 2 spray(s), Nasal, BID, 1 EA, Refill(s) 1, PLACE 2 SPRAYS IN EACH NOSTRIL TWO TIMES DAILY., [id number] 162, cm, 01/22/23 13:19:00 EDT, Height/Length Dosing, 98.3, kg, 01/22/23 13:19:00 EDT, Weight Dosing Start Date: 01/22/23 Status: Ordered levothyroxine sodium 0.1 mg oral tablet (20 sources) l-Thyroxine Start: 01-31-2025 take 1 tablet by mouth once daily levothyroxine 100 mcg (0.1 mg) Tab See Instructions, TAKE 1 TABLET BY MOUTH EVERY DAY, # 90 tab(s), Refills(s) 0, Pharmacy: [facility] [id number], 168, cm, 11/24/24 13:08:00 EDT, Height/Length Dosing, 100.3, kg, 11/24/24 13:08:00 EDT, Weight Dosing Start Date: 01/31/25 Status: Ordered Quantity: 90.0 Unit: tab(s) Repeat number: 1 Start: 04-22-2024 take 1 tablet by noe th once daily levothyroxine 100 mcg (0.1 mg) Tab See Instructions, TAKE 1 TABLET BY MOUTH EVERY DAY, # 90 tab(s), Refills(s) 0, Pharmacy: [facility] [id number], 161, cm, 02/15/24 10:32:00 EDT, Height/Length Dosing, 102, kg, 02/15/24 10:32:00 EDT, Weight Dosing Start Date: 04/22/24 Status: Ordered Start: 10-19-2023 take 1 tablet by noe th once daily levothyroxine 100 mcg (0.1 mg) Tab 100 mcg = 1 tab(s), Oral, Daily, # 90 tab(s), Refills(s) 0, Pharmacy: [facility]/pharmacy #[id number], 168, cm, 10/19/23 8:08:00 [...] Refill(s) 0, Oxygen - 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), 168, cm, 03/09/23 11:04:00 EDT, [...] capsule by in halation once daily Tiotropium Alsen Active 1 CAP INHALATION Daily June 01, [...] procedure, # 2 tab(s), Refills(s) 0, Pharmacy: [facility]/pharmacy #[id number], 168, cm, 03/09/23 11:04:00 [...] Ordered Start: 01-22-2023 take 1 tablet by [facility] once daily potassium chloride 10 mEq ER Tab 10 mEq = 1 tab(s), Oral, Daily, Refills(s) 0 Start Date: 01/22/23 Status: Ordered Start: 06-26-2021 take 1 capsule by mo [facility] once daily potassium chloride 10 mEq [...] 05-31-2024 02-24-2019 Chronic Other aftercare (1 source) 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 pt notified. Send rx to [facility] From: Rose Marie Sauceda ([facility] - Clinical) To: Marlys Carcamo; Sent: 02/23/2025 14:49:36 EDT Show up: 02/23/2025 14:49:00 EDT Subject: RE: Ambulatory Reminder Normal [facility] .Interpretation:on Interpretation: Comment Invalid Interpretation Code [facility] Comment on above: Result Comment: Not infected with HCV unless early or acute infection is suspected (which may be delayed in an immunocompromised individual), or other evidence exists to indicate HCV infection. Performed at: [address] [id number] PhD Sahra Robledo Performed By: #### 2 [id number] #### [facility] [address] [place] [address] HCV Antibody RFX to Quant PC Mac 02-19-2025 HCV Ab Non-Reactive Invalid Interpretation Code Non Reactive [facility] Comment on above: Result Comment: Perf ormed at: [facility] [id number] PhD Sahra Robledo Performed By: #### 2 [id number] #### [facility] [address] [place] [address] CHEMISTRYOrdered By: SYSTEM SYSTEM on 02-16-2025 Albumin [...] (Bld) [Mass fraction] 6.0 % High <=5.9% [facility] ChemAutoSS CMPon 02-16-2025 Albumin [Mass/Vol] 3.8 g/dL Normal 3.3-5.0 [facility] Comment on above: Performed By: #### 2 [id number] #### [facility] [address] [place] [address] Albumin/Globulin [Mass ratio] 1.5 {ratio} Normal 1.1-2.2 [facility] Comment on above: Performed By: #### 2 [id number] #### [facility] [address] [place] [address] Alk Phos 81 Int._Unit/L Normal 21-98 [facility] Comment on above: Performed By: #### 2 [id number] #### [facility] [address] [place] [address] ALT 8 Int._Unit/L Normal 6-46 [facility] Comment on above: Performed By: #### 2 [id number] #### [facility] [address] [place] [address] Anion gap [Moles/Vol] 11 mmol/L Normal 6-16 [facility] Comment on above: Performed By: #### 2 [id number] #### [facility] [address] [place] [address] AST 11 Int._Unit/L Normal 5-43 [facility] Comment on above: Performed By: #### 2 [id number] #### [facility] [address] [place] [address] Bili Total 0.5 mg/dL Normal 0.0-1.1 [facility] Comment on above: Performed By: #### 2 [id number] #### [facility] [address] [place] [address] BUN/Creat Ratio 17 No Units Normal 10-20 [facility] Comment on above: Performed By: #### 2 [id number] #### [facility] [address] [place] [address] Calcium [Mass/Vol] 8.8 mg/dL Low 8.9-11.1 [facility] Comment on above: Performed By: #### 2 [id number] #### [facility] [address] [place] [address] Chloride [Moles/Vol] 104 mmol/L Normal 101-111 [facility] Comment on above: Performed By: #### 2 [id number] #### [facility] [address] [place] [address] CO2 [Moles/Vol] 26 mmol/L Normal 21-31 [facility] Comment on above: Performed By: #### 2 705110 #### [facility] [address] [place] [address] Creatinine [Mass/Vol] 1.2 mg/dL Normal 0.5-1.3 [facility] Comment on above: Performed By: #### 2 [id number] #### [facility] [address] [place] [address] Globulin (S) [Mass/Vol] 2.6 g/dL Normal 1.4-4.0 [facility] Comment on above: Performed By: #### 2 [id number] #### [facility] [address] [place] [address] Glucose [Mass/Vol] 104 mg/dL Normal 55-199 [facility] Comment on above: Performed By: #### 2 [id number] #### [facility] [address] [place] [address] Potassium [Moles/Vol] 4.2 mmol/L Normal 3.5-5.3 [facility] Comment on above: Performed By: #### 2 [id number] #### [facility] [address] [place] [address] Protein [Mass/Vol] 6.4 g/dL Normal 6.0-7.8 [facility] Comment on above: Performed By: #### 2 [id number] #### [facility] [address] [place] [address] Sodium [Moles/Vol] 137 mmol/L Normal 135-145 [facility] Comment on above: Performed By: #### 2 [id number] #### [facility] [address] [place] [address] Urea nitrogen [Mass/Vol] 20 mg/dL Normal 5-21 [facility] Comment on above: Performed By: #### 2 [id number] #### [facility] [address] [place] [address] [id number] 02-16-2025 HbA1c (Bld) [Mass fraction] 6.0 % High <=5.9 [facility] Comment on above: Performed By: #### 7 [id number] #### [facility] [address] [place] [address] Lipid Panelon 02-16-2025 Cholesterol [Mass/Vol] 166 mg/dL Normal 120-200 [facility] Comment on above: Performed By: #### 2 [id number] #### [facility] [address] [place] [address] Cholesterol in HDL [Mass/Vol] 35 mg/dL Invalid Interpretation Code [facility] Comment on above: Result Comment: '>= 60 LOW RISK' '<= 40 HIGH RISK' Performed By: #### 2 [id number] #### [facility] [address] [place] [address] Cholesterol in LDL [Mass/Vol] 113 mg/dL Normal <=129 [facility] Comment on above: Performed By: #### 2 [id number] #### [facility] [address] [place] [address] Cholesterol in VLDL [Mass/Vol] 24 mg/dL Normal 7-40 [facility] Comment on above: Performed By: #### 2 [id number] #### [facility] [address] [place] [address] Triglyceride [Mass/Vol] 119 mg/dL Normal <=149 [facility] Comment on above: Performed By: #### 2 [id number] #### [facility] [address] [place] [address] TSHon 02-16-2025 TSH Qn 9.04 m[IU]/L High 0.34-5.60 [facility] Comment on above: Performed By: #### 2 [id number] #### [facility] [address] [place] [address] eGFRon 02-16-2025 eGFR 62 mL/min/1.73 m2 Normal >=59 [facility] Comment on above: Performed By: #### 1 [id number] #### [facility] [address] [place] [address] Ambulatory Visit Summaryon 0 02-15-2025 Ambulatory Visit [...] Appointments 2024 11:00 AM EDT With: Where: [address] [address]- Thursday 9:45 AM EDT With: MIKE VENTURA, Oni Sewell Where: [facility] [address] [place] [address]- 2025 9:30 AM EDT With: Where: [address] [address]- You Need to Complete the Following Comprehensive [...] Every day Oxygen - 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 Normal [facility] Family Medicine Office/Clini c Noteon 02-15-2025 [...] patient requests, he will have completed at [facility] prior to next PCP visit. Colonoscopy [...] and pulmono (more content not included)... Normal [facility] Comment on above: Result [...] on Spiriva. sees Dr. Ferro and a concrete vibrator operator in [place] as well. on 4 Liter O2. annual labs ordered. he has not had any water today so he will return for nurse visit. RTC 3 months Ordered: E&M of Est. Patient Low 20-29 Min 33761 2. Back pain (M54.9: Dorsalgia, unspecified) c/o worsening back pain. spine surgeon is not willing to do surgery due to lung condition. will send refill on T3 Ordered: E&M of Est. Patient Low 20-29 Min 14442 3. Former smoker (Z87.891: Personal history of nicotine dependence) continue not smoking Ordered: E&M of Est. Patient Low 20-29 Min 69588 4. BMI 34.0-34.9,adult, (Z68.34: Body mass index [BMI] 34.0-34.9, adult)Body mass index [BMI] 34.0-34.9, adult BMI education Ordered: E&M of Est. Patient Low 20-29 Min 28232 5. Class 1 obesity due to excess calories with body mass index (BMI) of 34.0 to 34.9 in adult (E66.811: Obesity, class 1) see above Ordered: E&M of Est. Patient Low 20-29 Min 69113 Orders: 1125F Pain severity quantified; pain present [...] Handicap Placard, (more content not included)... Normal [facility] Comment on above: Result Comment: Elec tronically Signed By: Marlys Carcamo\.br\Date and Time Signed: 02/15/25 11:36 EDT No Panel Informationon 02-02 [facility] Ambulatory Visit Summaryon 0 11-24-2024 Ambulatory [...] Appointments Thursday 8:00 AM EDT With: Where: [address] [address]- Thursday 9:00 AM EDT With: Pito Patterson MD Where: [address] [id number]- Thursday 9:45 AM EDT With: Oni MCKEON MD Where: [facility] [address] [place] [address]- Medications What How Much When Why Instructions [...] Every day Oxygen - 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 Normal [facility] Family Medicine Office/Clini c [...] patient is also maintaining follow-ups with a concrete vibrator operator for pulmonary hypertension and noted no new [...] function evaluation conducted. - Scheduled follow-up with concrete vibrator operator for pulmonary hypertension. - Upcoming re-evaluation for [...] pending. Pulmonary hypertension remains stable per routine concrete vibrator operator follow-ups. B-cell lymphoma continues to be ma (more content not included)... Normal [facility] Comment on above: Result Comment: Elec tronically Signed By: Navarro VENTURA, Pito Davidson\.br\Date and Time Signed: 11/24/24 13:39 EDT No Panel Informationon 11-[address] [facility] PROSTATE-SPECIFIC ANTIGEN DI AGNOSTICon 11-22-2024 Prostate specific Ag [Mass/Vol] 0.24 ng/mL NINF - 2.60 ng/mL [facility] Comment on above: Total PSA test metho dology used is the Electrochemiluminescence Immunoassay by [employer]. Total PSA values by differing methodologies cannot be interchanged. Prostate specific Ag [Mass/V ol]on 11-22-2024 Interpretation and review of laboratory results Normal [facility] T4/FTI/T4Uon 11-22-2024 FTI 7 ug/dL 5.3 - 10.8 ug/dL [facility] Interpretation and review of laboratory results Abnormal [facility] T4 [Mass/Vol] 6.1 ug/dL 5.5 - 10.2 ug/dL [facility] T4 uptake [Mass/Vol] 0.87 Low 0.91 - 1.19 [facility] THYROID STIMULATING HORMONEo n 11-22-2024 TSH Qn 2.01 m[IU]/L [facility] TSH Qnon 11-22-2024 Interpretation and review of laboratory results Normal [facility] CNOVSPon 11-21-2024 CNOVS Visit (SP) Office (H EMASA) -- CHIKI JUAREZ ([id number]) 1945 M Date Time Provider Department 11/21/24 [...] influenza A infection and was hospitalized at [facility]. Apparently his symptoms were severe enough that [...] Comment: Speci men Type: BLOOD SPECIMENOrdering Facility: [facility] Address: [address] [place] [address] Result Comment: Tota l PSA test methodology used is the Electrochemiluminescence Immunoassay by [employer]. Total PSA values by differing methodologies cannot be interchanged. Performed By: #### 2 [id number] ####[facility] [id number] [place] [address] [place] T4/FTI/T4Uon 11-21-2024 FTI 7.0 ug/dL Normal 5.3-10.8 [facility] Comment on above: Order Comment: Speci men Type: BLOOD SPECIMEN Ordering Facility: [facility] Address: [address] [place] [address] Performed By: #### I FESC #### [facility] CLIA [id number] [address] [place] [address] [place] T4 [Mass/Vol] 6.1 ug/dL Normal 5.5-10.2 [facility] Comment on above: Order Comment: Speci men Type: BLOOD SPECIMEN Ordering Facility: [facility] Address: [address] [place] [address] Performed By: #### I FESC #### [facility] CLIA [id number] [address] [place] [address] [place] T4 uptake [Mass/Vol] 0.87 Low 0.91-1.19 [facility] Comment on above: Order Comment: Speci men Type: BLOOD SPECIMEN Ordering Facility: [facility] Address: [address] [place] [address] Performed By: #### I FESC #### [facility] CLIA [id number] [address] [place] [address] [place] TSH SerPl-aCncon 11-21-2024 TSH Qn 2.010 m[IU]/L Normal 0.270-4.200 [facility] Comment on above: Order Comment: Speci men Type: BLOOD SPECIMEN Ordering Facility: [facility] Address: [address] [place] [address] Performed By: #### I FESC #### [facility] CLIA [id number] [address] [place] [address] [place] CBC W Auto Differential pane l (Bld)on 11-16-2024 Anisocytosis Ql (Bld) Present [facility] Basophils (Bld) [#/Vol] 0.05 10*3/uL NINF [facility] Basophils/100 WBC (Bld) 0.9 % [facility] Differential cell count method Nom (Bld) Manual [facility] Eosinophils (Bld) [#/Vol] 0.05 10*3/uL [facility] Eosinophils/100 WBC (Bld) 0.9 % [facility] Erythrocyte distribution width (RBC) [Ratio] 16.2 % High 11.5 - 15.0 % [facility] Hematocrit (Bld) [Volume fraction] 35.7 % Low 39.0 - 51.0 % [facility] Hemoglobin (Bld) [Mass/Vol] 11.5 g/dL Low 13.0 - 17.0 g/dL [facility] Interpretation and review of laboratory results Abnormal [facility] Lymphocytes (Bld) [#/Vol] 1.14 10*3/uL [facility] Lymphocytes/100 WBC (Bld) 20.5 % [facility] MCH (RBC) [Entitic mass] 34.4 pg High 26.0 - 34.[address] [facility] MCHC (RBC) [Mass/Vol] 32.2 g/dL 30.5 - 36.0 g/dL [facility] MCV (RBC) [Entitic vol] 106.9 fL High 80.0 - 100.[address] [facility] [place] % 2.6 % [facility] Monocytes (Bld) [#/Vol] 1.85 10*3/uL High NINF [facility] Monocytes/100 WBC (Bld) 33.3 % [facility] Myelo % 6.8 % [facility] Neutrophils (Bld) [#/Vol] 1.94 10*3/uL [facility] Neutrophils/100 WBC (Bld) 35 % [facility] Nucleated RBC (Bld) [#/Vol] NINF [facility] Nucleated RBC/100 WBC (Bld) [Ratio] 0 % /[address] [facility] Ovalocytes LM Ql (Bld) Few [facility] Platelet mean volume (Bld) [Entitic vol] 10.9 fL 9.0 - 12.[address] [facility] Platelets (Bld) [#/Vol] 186 10*3/uL [facility] Platelets Estimate (Bld) [#/Vol] Adequate [facility] Polychromasia LM Ql (Bld) Slight [facility] RBC (Bld) [#/Vol] 3.34 10*6/uL Low 4.20 - 6.0 0 m/uL [facility] Red Cell Morph Reviewed: see result s of individual morphologies [facility] WBC (Bld) [#/Vol] 5.55 10*3/uL [facility] WBC Left Shift Ql (Bld) Present [facility] This is an appended report. These results have been appended to a previously verified report. [facility] PROTEIN, TOTALon 11-16-2024 Protein [Mass/Vol] 6.8 g/dL 6.3 - 8.0 g/dL [facility] Protein [Mass/Vol]on Interpretation and review of laboratory results Normal [facility] CBC W Auto Differential pane l (Bld)on 11-15-2024 Anisocytosis Ql (Bld) Present Normal [facility] Comment on above: Order Comment: Speci men Type: BLOOD SPECIMEN Ordering Facility: [facility] Address: [address] [place] [address] [place] [id number] Performed By: #### I FESC #### [facility] CLIA [id number] [address] [place] [address] [place] Basophils (Bld) [#/Vol] 0.05 10*3/uL Normal <0.11 [facility] Comment on above: Order Comment: Speci men Type: BLOOD SPECIMEN Ordering Facility: [facility] Address: [address] [place] [address] Performed By: #### I FESC #### [facility] CLIA [id number] [address] [place] [address] [place] Basophils/100 WBC (Bld) 0.9 % Normal [facility] Comment on above: Order Comment: Speci men Type: BLOOD SPECIMEN Ordering Facility: [facility] Address: [address] [place] [address] Performed By: #### I FESC #### [facility] CLIA [id number] [address] [place] [id number] [place] Differential cell count method Nom (Bld) Manual Normal [facility] Comment on above: Order Comment: Speci men Type: BLOOD SPECIMEN Ordering Facility: [facility] Address: [address] [place] [address] Performed By: #### I FESC #### [facility] CLIA [id number] [address] [place] [address] [place] Eosinophils (Bld) [#/Vol] 0.05 10*3/uL Normal <0.46 [facility] Comment on above: Order Comment: Speci men Type: BLOOD SPECIMEN Ordering Facility: [facility] Address: [address] [place] [address] Performed By: #### I FESC #### [facility] CLIA [id number] [address] [place] [address] [place] Eosinophils/100 WBC (Bld) 0.9 % Normal [facility] Comment on above: Order Comment: Speci men Type: BLOOD SPECIMEN Ordering Facility: [facility] Address: [address] [place] [address] Performed By: #### I FESC #### [facility] CLIA [id number] [address] [place] [address] [place] Erythrocyte distribution width (RBC) [Ratio] 16.2 % High 11.5-15.0 [facility] Comment on above: Order Comment: Speci men Type: BLOOD SPECIMEN Ordering Facility: [facility] Address: [address] [place] [address] Performed By: #### I FESC #### [facility] CLIA [id number] [address] [place] [address] [place] Hematocrit (Bld) [Volume fraction] 35.7 % Low 39.0-51.0 [facility] Comment on above: Order Comment: Speci men Type: BLOOD SPECIMEN Ordering Facility: [facility] Address: [address] [place] [address] Performed By: #### I FESC #### [facility] CLIA [id number] [address] [place] [address] [place] Hemoglobin (Bld) [Mass/Vol] 11.5 g/dL Low 13.0-17.0 [facility] Comment on above: Order Comment: Speci men Type: BLOOD SPECIMEN Ordering Facility: [facility] Address: [address] [place] [address] Performed By: #### I FESC #### [facility] CLIA [id number] [address] [place] [address] [place] Lymphocytes (Bld) [#/Vol] 1.14 10*3/uL Normal 1.00-4.00 [facility] Comment on above: Order Comment: Speci men Type: BLOOD SPECIMEN Ordering Facility: [facility] Address: [address] [place] [address] Performed By: #### I FESC #### [facility] CLIA [id number] [address] [place] [address] [place] Lymphocytes/100 WBC (Bld) 20.5 % Normal [facility] Comment on above: Order Comment: Speci men Type: BLOOD SPECIMEN Ordering Facility: [facility] Address: [address] [place] [address] Performed By: #### I FESC #### [facility] CLIA [id number] [address] [place] [address] [place] MCH (RBC) [Entitic mass] 34.4 pg High 26.0-34.0 [facility] Comment on above: Order Comment: Speci men Type: BLOOD SPECIMEN Ordering Facility: [facility] Address: [address] [place] [address] Performed By: #### I FESC #### [facility] CLIA [id number] [address] [place] [address] [place] MCHC (RBC) [Mass/Vol] 32.2 g/dL Normal 30.5-36.0 [facility] Comment on above: Order Comment: Speci men Type: BLOOD SPECIMEN Ordering Facility: [facility] Address: [address] [place] [address] Performed By: #### I FESC #### [facility] CLIA [id number] [address] [place] [address] [place] MCV (RBC) [Entitic vol] 106.9 fL High 80.0-100.0 [facility] Comment on above: Order Comment: Speci men Type: BLOOD SPECIMEN Ordering Facility: [facility] Address: [address] [place] [address] Performed By: #### I FESC #### [facility] CLIA [id number] [address] [place] [address] [place] Metamyelocytes/100 WBC (Bld) 2.6 % Normal [facility] Comment on above: Order Comment: Speci men Type: BLOOD SPECIMEN Ordering Facility: [facility] Address: [address] [id number] Performed By: #### I FESC #### [facility] CLIA [id number] [address] [place] [address] [place] Monocytes (Bld) [#/Vol] 1.85 10*3/uL High <0.87 [facility] Comment on above: Order Comment: Speci men Type: BLOOD SPECIMEN Ordering Facility: [facility] Address: [address] [place] [address] Performed By: #### I FESC #### [facility] CLIA [id number] [address] [place] [address] [place] Monocytes/100 WBC (Bld) 33.3 % Normal [facility] Comment on above: Order Comment: Speci men Type: BLOOD SPECIMEN Ordering Facility: [facility] Address: [address] [place] [address] Performed By: #### I FESC #### [facility] CLIA [id number] [address] [place] [address] [place] MYELO% 6.8 % Normal [facility] Comment on above: Order Comment: Speci men Type: BLOOD SPECIMEN Ordering Facility: [facility] Address: [address] [place] [address] Performed By: #### I FESC #### [facility] CLIA [id number] [address] [place] [address] [place] Neutrophils (Bld) [#/Vol] 1.94 10*3/uL Normal 1.45-7.50 [facility] Comment on above: Order Comment: Speci men Type: BLOOD SPECIMEN Ordering Facility: [facility] Address: [address] [place] [address] Performed By: #### I FESC #### [facility] CLIA [id number] [address] [id number] [address] [place] Neutrophils/100 WBC (Bld) 35.0 % Normal [facility] Comment on above: Order Comment: Speci men Type: BLOOD SPECIMEN Ordering Facility: [facility] Address: [address] [place] [address] Performed By: #### I FESC #### [facility] CLIA [id number] [address] [place] [address] [place] Nucleated RBC (Bld) [#/Vol] 10*3/uL Normal <0.01 [facility] Comment on above: Order Comment: Speci men Type: BLOOD SPECIMEN Ordering Facility: [facility] Address: [address] [place] [address] Performed By: #### I FESC #### [facility] CLIA [id number] [address] [place] [address] [place] Nucleated RBC/100 WBC (Bld) [Ratio] 0.0 /100 WBC Normal [facility] Comment on above: Order Comment: Speci men Type: BLOOD SPECIMEN Ordering Facility: [facility] Address: [address] [place] [address] Performed By: #### I FESC #### [facility] CLIA [id number] [address] [place] [address] [place] Ovalocytes LM Ql (Bld) Few Normal [facility] Comment on above: Order Comment: Speci men Type: BLOOD SPECIMEN Ordering Facility: [facility] Address: [address] [place] [address] Performed By: #### I FESC #### [facility] CLIA [id number] [address] [place] [address] [place] Platelet mean volume (Bld) [Entitic vol] 10.9 fL Normal 9.0-12.7 [facility] Comment on above: Order Comment: Speci men Type: BLOOD SPECIMEN Ordering Facility: [facility] Address: [address] [place] [address] Performed By: #### I FESC #### [facility] CLIA [id number] [address] [place] [address] [place] Platelets (Bld) [#/Vol] 186 10*3/uL Normal 150-400 [facility] Comment on above: Order Comment: Speci men Type: BLOOD SPECIMEN Ordering Facility: [facility] Address: [address] [place] [address] Performed By: #### I FESC #### [facility] CLIA [id number] [facility] [place] [address] [place] Platelets Estimate (Bld) [#/Vol] Adequate Normal [facility] Comment on above: Order Comment: Speci men Type: BLOOD SPECIMEN Ordering Facility: [facility] Address: [address] [place] [address] Performed By: #### I FESC #### [facility] CLIA [id number] [address] [place] [address] [place] Polychromasia LM Ql (Bld) Slight Normal [facility] Comment on above: Order Comment: Speci men Type: BLOOD SPECIMEN Ordering Facility: [facility] Address: [address] [place] [address] Performed By: #### I FESC #### [facility] CLIA [id number] [address] [place] [address] [place] RBC (Bld) [#/Vol] 3.34 10*6/uL Low 4.20-6.00 [facility] Comment on above: Order Comment: Speci men Type: BLOOD SPECIMEN Ordering Facility: [facility] Address: [address] [place] [address] Performed By: #### I FESC #### [facility] CLIA [id number] [address] [place] [address] [place] RED CELL MORPH Reviewed: see result s of individual morphologies Normal [facility] Comment on above: Order Comment: Speci men Type: BLOOD SPECIMEN Ordering Facility: [facility] Address: [address] [place] [address] Performed By: #### I FESC #### [facility] CLIA [id number] [address] [place] [address] [place] WBC (Bld) [#/Vol] 5.55 10*3/uL Normal 3.70-11.00 [facility] Comment on above: Order Comment: Speci men Type: BLOOD SPECIMEN Ordering Facility: [facility] Address: [address] [place] [address] Performed By: #### I FESC #### [facility] CLIA [id number] [address] [place] [address] [place] WBC Left Shift Ql (Bld) Present Normal [facility] Comment on above: Order Comment: Speci men Type: BLOOD SPECIMEN Ordering Facility: [facility] Address: [address] [place] [address] Performed By: #### I FESC #### [facility] CLIA [id number] [address] [place] [address] [place] CT CHEST W IVCONon 5 CT CHEST W IVCON * * *Final Report* * * DATE OF EXAM: Nov 15 2024 3:21PM [facility] 0539 - CT CHEST W IVCON / [...] abdomen: Visualized upper abdomen is grossly unremarkable. Wet Machine Cutter (topogram) images: Unremarkable. IMPRESSION: No lymphadenopathy in [...] any questions regarding this interpretation, please call [phone]. If you are unable to reach us at the number above, please feel free to contact [facility] eRadiology at [phone]. [id number] Normal [facility] CT Chest [...] any questions regarding this interpretation, please call [phone]. If you are unable to reach us at the number above, please feel free to contact [facility] eRadiology at [phone]. DIVISION OF RADIOLOGY * * *Final Report* * * DATE OF EXAM: Nov 15 2024 3:21PM [facility] 0539 - CT CHEST W IVCON / [...] abdomen: Visualized upper abdomen is grossly unremarkable. Wet Machine Cutter (topogram) images: Unremarkable. DIVISION OF RADIOLOGY Provider, [facility] - 11/15/2024 * * *Final Report* * * DATE OF EXAM: Nov 15 2024 3:21PM [facility] 0539 - CT CHEST W IVCON / [...] abdomen: Visualized upper abdomen is grossly unremarkable. Wet Machine Cutter (topogram) images: Unremarkable. IMPRESSION IMPRESSION: No lymphadenopathy [...] any questions regarding this interpretation, please call [phone]. If you are unable to reach us at the number above, please feel free to contact [facility] eRadiology at [phone]. [facility] Radiology Study observation (narrative) [facility] CT Chest W contrast IVOrdere d By: [facility] Provider on 11-15-[address] [facility] Comp Metab 2000 Pnl SerPlon 11-15-2024 Protein [Mass/Vol] 6.8 g/dL Normal 6.3-8.0 [facility] Comment on above: Order Comment: Speci jomar Type: BLOOD SPECIMEN Ordering Facility: [facility] Address: [address] [place] [address] Performed By: #### I [facility] #### [facility] CLIA [id number] [address] [place], [place] [address] [place] [address] [place] Order Comment: Speci men Type: BLOOD SPECIMENOrdering Facility: [facility] Address: [address] [place] [address] Performed By: #### 2 885-2 ####[facility] [id number] [place] [id number] [facility] [place] Comprehensive metabolic 2000 panelOrdered By: Niki Lynn on 11-15-2024 Albumin [Mass/Vol] 3.8 g/dL Low 3.9 - 4.9 g/dL [facility] ALP [Catalytic activity/Vol] 83 U/L 38 - 113 [facility] ALT [Catalytic activity/Vol] 9 U/L Low 10 - 54 [facility] Anion gap [Moles/Vol] 12 mmol/L 8 - 15 mmol/L [facility] AST [Catalytic activity/Vol] 14 U/L 14 - 40 U/L [facility] Bilirubin [Mass/Vol] 0.4 mg/dL 0.2 - 1 .3 mg/dL [facility] Calcium [Mass/Vol] 9.3 mg/dL 8.5 - 10. 2 mg/dL [facility] Chloride [Moles/Vol] 104 mmol/L 98 - 10 7 mmol/L [facility] CO2 [Moles/Vol] 24 mmol/L 22 - 30 mmol/L [facility] Creatinine [Mass/Vol] 1.27 mg/dL High 0.73 - 1.22 mg/dL [facility] GFR/1.73 sq M.predicted among non-blacks MDRD (S/P/Bld) [Vol rate/Area] 58 mL/min/{1.73_m2} Low - PINF [facility] Comment on above: Estimated Glomerular [...] 110 mg/dL High 74 - 99 mg/dL [facility] Comment on above: The [place] Diabete s Association (ADA) provides guidance for [...] Standards of Medical Care in Diabetes 2016, [place] [employer]. Diabetes Care. 2016.39(Suppl 1). Interpretation and review of laboratory results Abnormal [facility] Potassium [Moles/Vol] 4 mmol/L 3.7 - 5.1 mmol/L [facility] Protein [Mass/Vol] 6.8 g/dL 6.3 - 8.0 g/dL [facility] Sodium [Moles/Vol] 140 mmol/L 136 - 144 mmol/L [facility] Urea nitrogen [Mass/Vol] 21 mg/dL 9 - 24 mg/dL [facility] Comprehensive metabolic 2000 panelon 11-15-2024 Albumin [Mass/Vol] 3.8 g/dL Low 3.9-4.9 [facility] Comment on above: Order Comment: Liliya hadley Type: BLOOD SPECIMEN Ordering Facility: [facility] Address: [address] [place] [address] Performed By: #### I FESC #### [facility] CLIA [id number] [address] [place] [address] [place] ALP [Catalytic activity/Vol] 83 U/L Normal 38-113 [facility] Comment on above: Order Comment: Liliya hadley Type: BLOOD SPECIMEN Ordering Facility: [facility] Address: [address] [place] [address] Performed By: #### I FESC #### [facility] CLIA [id number] [address] [place] [address] [place] ALT [Catalytic activity/Vol] 9 U/L Low 10-54 [facility] Comment on above: Order Comment: Liliya hadley Type: BLOOD SPECIMEN Ordering Facility: [facility] Address: [address] [place] [address] Performed By: #### I FESC #### [facility] CLIA [id number] [address] [place] [address] [place] Anion gap [Moles/Vol] 12 mmol/L Normal 8-15 [facility] Comment on above: Order Comment: Speci men Type: BLOOD SPECIMEN Ordering Facility: [facility] Address: [address] [place] [address] Performed By: #### I FESC #### [facility] CLIA [id number] [address] [place] [address] [place] AST [Catalytic activity/Vol] 14 U/L Normal 14-40 [facility] Comment on above: Order Comment: Speci men Type: BLOOD SPECIMEN Ordering Facility: [facility] Address: [address] [place] [address] Performed By: #### I FESC #### [facility] CLIA [id number] [address] [place] [address] [place] Bilirubin [Mass/Vol] 0.4 mg/dL Normal 0.2-1.3 [facility] Comment on above: Order Comment: Speci men Type: BLOOD SPECIMEN Ordering Facility: [facility] Address: [address] [place] [address] Performed By: #### I FESC #### [facility] CLIA [id number] [address] [place] [address] [place] Calcium [Mass/Vol] 9.3 mg/dL Normal 8.5-10.2 [facility] Comment on above: Order Comment: Speci men Type: BLOOD SPECIMEN Ordering Facility: [facility] Address: [address] [place] [address] Performed By: #### I FESC #### [facility] CLIA [id number] [address] [place] [address] [place] Chloride [Moles/Vol] 104 mmol/L Normal 98-107 [facility] Comment on above: Order Comment: Speci men Type: BLOOD SPECIMEN Ordering Facility: [facility] Address: [address] [place] [address] Performed By: #### I FESC #### [facility] CLIA [id number] [address] [place] [address] [place] CO2 [Moles/Vol] 24 mmol/L Normal 22-30 [facility] Comment on above: Order Comment: Speci men Type: BLOOD SPECIMEN Ordering Facility: [facility] Address: [address] [place] [address] Performed By: #### I FESC #### [facility] CLIA [id number] [address] [place] [address] [place] Creatinine [Mass/Vol] 1.27 mg/dL High 0.73-1.22 [facility] Comment on above: Order Comment: Speci men Type: BLOOD SPECIMEN Ordering Facility: [facility] Address: [address] [place] [address] Performed By: #### I FESC #### [facility] CLIA [id number] [address] [place] [address] [place] Creatinine and Glomerular filtration rate.predicted panel (S/P/Bld) 58 mL/min/1.73m??? Low >=60 [facility] Comment on above: Order Comment: Speci men Type: BLOOD SPECIMEN Ordering Facility: [facility] Address: [address] [place] [address] Result Comment: Ary mated Glomerular Filtration Rate [...] GFR. Performed By: #### I FESC #### [facility] CLIA [id number] [address] [place] [address] [place] Glucose [Mass/Vol] 110 mg/dL High 74-99 [facility] Comment on above: Order Comment: Speci men Type: BLOOD SPECIMEN Ordering Facility: [facility] Address: [address] [place] [address] Result Comment: The [place] Diabetes Association (ADA) provides guidance for cutoff [...] Standards of Medical Care in Diabetes 2016, [place] [employer]. Diabetes Care. 2016.39(Suppl 1). Performed By: #### I FESC #### [facility] CLIA [id number] [address] [place] [address] [place] Potassium [Moles/Vol] 4.0 mmol/L Normal 3.7-5.1 [facility] Comment on above: Order Comment: Liliya hadley Type: BLOOD SPECIMEN Ordering Facility: [facility] Address: [address] [place] [address] Performed By: #### I FESC #### [facility] CLIA [id number] [address] [place] [address] [place] Sodium [Moles/Vol] 140 mmol/L Normal 136-144 [facility] Comment on above: Order Comment: Liliya hadley Type: BLOOD SPECIMEN Ordering Facility: [facility] Address: [address] [place] [address] Performed By: #### I FESC #### [facility] CLIA [id number] [address] [place] [address] [place] Urea nitrogen [Mass/Vol] 21 mg/dL Normal 9-24 [facility] Comment on above: Order Comment: Liliya hadley Type: BLOOD SPECIMEN Ordering Facility: [facility] Address: [address] [place] [address] Performed By: #### I FESC #### [facility] CLIA [id number] [address] IMMUNOFIXATION SCREEN, SERUM on 11-15-2024 MPA RESULT No M protein is identified. Normal No M protein is identified. [facility] Comment on above: Order Comment: Speci men Type: BLOOD SPECIMENOrdering Facility: [facility] Address: [address] [place] [address] Performed By: #### I FESC ####[facility] [id number] [address] OF [facility] STAFF REVIEW (MPA) Reviewed by Xiomara powell M.D. Normal [facility] Comment on above: Order Comment: Speci men Type: BLOOD SPECIMENOrdering Facility: [facility] Address: [address] [place] [address] Performed By: #### I FESC ####[facility] [id number] [place] [id number] [place] IMMUNOGLOBULINS,IGG,IGA,IGMo n 11-15-2024 IgA [Mass/Vol] 127 mg/dL Normal 70-400 [facility] Comment on above: Order Comment: Speci men Type: BLOOD SPECIMENOrdering Facility: [facility] Address: [address] [place] [address] Performed By: #### S ERIMM ####[facility] [id number] [address], [facility] [place] IgG [Mass/Vol] 1016 mg/dL Normal 700-1600 [facility] Comment on above: Order Comment: Speci men Type: BLOOD SPECIMENOrdering Facility: [facility] Address: [address] [place] [address] Performed By: #### S ERIMM ####[facility] [id number] [place] [id number] [place] IgM [Mass/Vol] 109 mg/dL Normal 40-230 [facility] Comment on above: Order Comment: Speci men Type: BLOOD SPECIMENOrdering Facility: [facility] Address: [address] [place] [address] Performed By: #### S GIANLUCA ####[facility] [id number] [place] [address] [place] KAPPA/ADRON,FREE,SERon 2024 Immunoglobulin light chains.kappa.free (S) [Mass/Vol] 27.0 mg/L High 3.3-19.4 [facility] Comment on above: Order Comment: Speci men Type: BLOOD SPECIMEN Ordering Facility: [facility] Address: [address] [place] [address] Result Comment: Rare ly, increased serum free light chains levels may not be detected or accurately quantified due to prozone phenomenon or in high viscosity samples using this immunoturbidimetric assay. Correlation with other laboratory results and clinical findings is recommended. The [place] Free Light Chain was performed using the Binding Site Optilite immunoturbidimetric method. Result obtained with different assay methods or kits cannot be used interchangeably. Performed By: #### I FESC #### [facility] CLIA [id number] [address] [place] [address] [place] Immunoglobulin light chains.kappa/Immunog lobulin light chains.lambda (S) [Mass ratio] 1.66 High 0.26-1.65 [facility] Comment on above: Order Comment: Speci men Type: BLOOD SPECIMEN Ordering Facility: [facility] Address: [address] [place] [address] Performed By: #### I FESC #### [facility] CLIA [id number] [address] [place] [address] [place] Immunoglobulin light chains.lambda.free [Mass/Vol] 16.3 mg/L Normal 5.7-26.3 [facility] Comment on above: Order Comment: Speci men Type: BLOOD SPECIMEN Ordering Facility: [facility] Address: [address] [place] [address] Result Comment: Rare ly, increased serum free [...] interchangeably. Performed By: #### I FES #### [facility] CLIA [id number] [address] [place] [address] [place] PROTEIN ELECTROPHORESIS SERU M (P)on 11-15-2024 Albumin [Mass/Vol] 3.85 g/dL Normal 3.43-5.41 [facility] Comment on above: Order Comment: Speci men Type: BLOOD SPECIMENOrdering Facility: [facility] Address: [address] [place] [address] Performed By: #### L [id number] ####[facility] [id number] [place] [address] [place] Alpha 1 globulin Elph [Mass/Vol] 0.40 g/dL Normal 0.18-0.43 [facility] Comment on above: Order Comment: Speci men Type: BLOOD SPECIMENOrdering Facility: [facility] Address: [address] [place] [address] Performed By: #### L [id number] ####[facility] [id number] [place] [address] [place] Alpha 2 globulin Elph [Mass/Vol] 0.80 g/dL Normal 0.42-0.98 [facility] Comment on above: Order Comment: Speci men Type: BLOOD SPECIMENOrdering Facility: [facility] Address: [address] [place] [address] Performed By: #### L [id number] ####[facility] [id number] [place] [id number] [place] Beta globulin Elph [Mass/Vol] 0.82 g/dL Normal 0.61-1.17 [facility] Comment on above: Order Comment: Speci men Type: BLOOD SPECIMENOrdering Facility: [facility] Address: [address] [place] [address] Performed By: #### L [id number] ####[facility] [id number] [place] [address] [place] Gamma globulin Elph [Mass/Vol] 0.93 g/dL Normal 0.53-1.51 [facility] Comment on above: Order Comment: Speci men Type: BLOOD SPECIMENOrdering Facility: [facility] Address: [address] [place] [address] Performed By: #### L [id number] ####[facility] [id number] [place] [address] [place] M-PROTEIN LOCATION Normal [facility] Comment on above: Order Comment: Speci men Type: BLOOD SPECIMENOrdering Facility: [facility] Address: [address] [place] [address] Result Comment: Not Applicable. Performed By: #### L [id number] ####[facility] [id number] [place] [address] [place] Protein Fractions [Interp] No definitive M protein is identified on protein electrophoresis. Normal No definitive M protein is identified on protein electrophore sis. [facility] Comment on above: Order Comment: Speci men Type: BLOOD SPECIMENOrdering Facility: [facility] Address: [address] [place], [place] [address] Performed By: #### L [id number] ####[facility]IA [id number] [place] [id number] [place] Protein.monoclonal Elph [Mass/Vol] 0.00 g/dL Normal <=0.00 [facility] Comment on above: Order Comment: Speci men Type: BLOOD SPECIMENOrdering Facility: [facility] Address: [address] [place] [address] Performed By: #### L [id number] ####[facility]IA [id number] [address] SPE STAFF REVIEW Reviewed by Xiomara powell M.D. [facility] Comment on above: Order Comment: Speci men Type: BLOOD SPECIMENOrdering Facility: [facility] Address: [address] [place] [address] Performed By: #### L [id number] ####[facility]CLIA [id number] [place] [id number] [facility] 36on 11-07-2024 36 Regarding echo resul t from 11/04/2024: MD Mayra Wellington MA His echocardiogram shows stable findings. Follow-up as planned. Patient made aware. [facility] Office Visiton 10-21-2024 Follow-up visit [id number] Tremaine Juarez 1945 M Date Provider Department Center 10/21/2024 Laura-DANIELLA EASTON KRISTEN Pulido Family History Problem Relation Age of Onset Stroke Father Family Status - Relation Status Age at Father Level of Service:16865 ME OFFICE/OUTPATIENT ESTABLISHED LOW MDM [address] [facility] Oswaldo 10-14-2024 LIDAN Telephone (CHERRY) -- CHIKI JUAREZ ([id number]) 1945 M Date Time Provider Department 10/14/24 [...] [C83.30] Order(s):COMPREHENSIVE METABOLIC PANEL [SQCMP] Order #: [id number] FUTURE COMPLETE BLOOD COUNT AND DIFFERENTIAL [SQCBCDIF] Order #: [id number] FUTURE PROTEIN ELECTROPHORESIS SERUM W/INTERP [SQSEPG] Order #: [id number] FUTURE MONOCLONAL PROTEIN, SERUM (BLOOD) [SQSERMPA] Order #: [id number] FUTURE Prescriptions as of 10/14/2024 - TEZSPIRE [...] Encounter Status:Closed by ARABELLA MANDUJANO on 10/14/24 [facility] Ambulatory Visit Summaryon 0 08-25-2024 Ambulatory Visit [...] EDT With: Navarro VENTURA, Pito Davidson Where: [address] [address]- Thursday 8:00 AM EDT With: Where: [address] [id number]- Thursday 9:45 AM EDT With: MIKE VENTURA, Oni Sewell Where: [facility] [address] [place] [address]- Medications What How Much When Why Instructions [...] Every day Oxygen - patient states his concrete vibrator operator just increased this to 4LPM Unchanged potassium [...] prostate cance (more content not included)... Normal [facility] Medicine Office/Clini c [...] to trialing Zyrtec for congestion relief. The concrete vibrator operator, overseeing ongoing respiratory management, is scheduled for [...] disease, unspecified) Monitor exacerbation pattern and consult concrete vibrator operator regarding chronic antibiotic therapy approval. Explore potential for chronic Zyrtec use for congestion relief upon concrete vibrator operator's input. 4. Chronic diastolic heart failure (I50.32: [...] obstruction Card (more content not included)... Normal [facility] Comment on above: Result Comment: Elec tronically Signed By: Navarro VENTURA, Pito Davidson\.br\Date and Time Signed: 08/25/24 12:44 EST No Panel InformationOrdered By: Malou Wynne on 08-04-2024 [facility] Ambulatory Visit Summaryon 1 09-12-2023 Ambulatory [...] EST With: Navarro VENTURA, Pito Davidson Where: [address] [address]- Thursday 8:00 AM EDT With: Where: [address] [id number]- Thursday 9:45 AM EDT With: MIEK VENTURA, Oni Sewell Where: [facility] [address] [place] [address]- Medications What How Much When Why Instructions [...] Every day Oxygen - patient states his concrete vibrator operator just increased this to 4LPM Unchanged potassium [...] lymphoma Histor (more content not included)... Normal [facility] Family Medicine Office/Clini c [...] day(s), # 6 tab(s), Refills(s) 0, Pharmacy: [facility]/pharmacy #[id number], 168, cm, 07/13/24 10:34:00 EST, Height/Length Dosing, 101.9, kg, 07/13/24 10:34:00 EST, Weight Dosing methylPREDNISolone, = 1 packet(s), Oral, As Directed, as directed on package labeling, X 6 day(s), # 21 tab(s), Refills(s) 0, Pharmacy: [facility]/pharmacy #[id number], 168, cm, 07/13/24 10:34:00 [...] qual (more content not included)... Normal [facility] Comment on above: Result Comment: Elec tronically Signed By: MARKUS CERNA CNP.otf\Date and Time Signed: 07/13/24 10:55 EST Oswaldo 06-10-2024 LIDAN Telephone (HEMASA) -- CHIKI JUAREZ ([id number]) 1945 M Date Time Provider Department 06/10/24 VALERIE MAYES During your visit today, we recorded the following information about you: Valerie Mayes RN 06/10/2024 8:[address] Mayra Berg, [facility] called and spoke with BR[facility] yesterday [...] schedule a CT for November. Shea Kolb [facility] Valerie Mayes RN 06/13/2024 9:36 AM Signed notified and transferred to [facility] to schedule CT as recommended prior to return visit with BRM. SANTI Rojas Trisha 06/13/2024 10:38 AM Signed Patient is scheduled 11/15/24 at 1:30 PM Shea Kolb [facility] Allergies As of Date: 06/10/2024 Noted Allergy Reaction SPIRONOLACTONE 09/18/2021 14 - Other: See Comments Comments: Leg cramps, Hyperkalemia Date Reviewed: 06/06/2024 Reviewed by: Yoalnda Montague MA - Fully Assessed Reason for Visit: Pet results [Other] Primary Visit Diagnosis:Localized enlarged lymph nodes [R59.0] Order(s):CT CHEST W IVCON [6115480] Order #: [id number] FUTURE [] iv contrast (will be provided [...] (SP) Office (H EMASA) -- CHIKI JUAREZ ([id number]) 1945 M Date Time Provider Department 06/06/24 [...] Temp 3 (more content not included)... Normal [facility] 06-01-2024 L Specimen: [id number] Received: 06/01/24 Status: GABBY Giron Num: [id number] Spec Type: Surgical Subm Dr: Connor Crawley DO Tissues: A Skin-Other than Cyst, tag, debridement or plastic repair (L CHEEK LESION) B Skin-Other than Cyst, tag, debridement or plastic repair (SCALP LESION) Procedures: HE/8, Gross/Micro L4/2, FS HE/8 Age/ Patient Sex Location Account Attending Physician Chiki Juarez 79/M [place] [id number] Connor Crawley DO SPEC NUM: [id number] RECD: 06/01/24 STATUS: GABBY GIRON NUM: [id number] MARIAN: 06/01/[address]: Connor Crawley DO ENTERED: 06/01/24 [facility] DR: SPEC TYPE: Surgical DEPT: S ENTERED BY: [id number] RECV BY: [id number] ORDERED: HE/8, Gross/Micro L4/2, FS HE/8 ORDERED: [...] the correct patient's name and scalp Specimen: [id number] Received: 06/01/24 Status: GABBY Giron Num: [id number] Spec Type: Surgical Subm Dr: Connor Crawley DO Tissues: A Skin-Other than Cyst, tag, debridement or plastic repair (L CHEEK LESION) B Skin-Other than Cyst, tag, debridement or plastic repair (SCALP LESION) Procedures: HE/8, Gross/Micro L4/2, FS 8 Patient: Chiki Juarez [id number] (Continued) Specimen: [id number] Received: 06/01/24 (Continued) Gross Description (Continued) Signed (signature on file) Randy Tillman MD 06/03/24 1151 Specimen: [id number] Received: 06/01/24 Status: GABBY Giron Num: [id number] Spec Type: Surgical Subm Dr: Connor Crawley DO Tissues: A Skin-Other than Cyst, tag, debridement or plastic repair (L CHEEK LESION) B Skin-Other than Cyst, tag, debridement or plastic repair (SCALP LESION) Procedures: DHARA/, Gross/Micro L4/2, FS Patient: Chiki Juarez [id number] (Continued) Specimen: [id number] Received: 06/01/24 (Continued) Gross Description (Continued) lesion [...] Nichols CPT Codes 88 305 x 2 00818 x 2 Specimen: [id number] Received: 06/01/24 Status: GABBY Giron Num: [id number] Spec Type: Surgical Subm Dr: Connor Crawley,DO Tissues: A Skin-Other than Cyst, tag, debridement or plastic repair (L CHEEK L (more content not included)... Normal [facility] Provider Letteron 06-01-2024 Provider Letter Provider Letter June 01, 2024 CHIKI JUAREZ [address] [place] [id number] : 1945 Dear Kwaku, We have been trying to reach you with no success. It is important that you return our call regarding your mobility scooter upon receiving this letter. Also, at the time of your call, please provide us with your current information. Thank you for your prompt attention to this matter. 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 Chronic kidney disease stage 3a is managed [...] 3352F Influ (more content not included)... Normal [facility] Comment on above: Result Comment: Elec tronically Signed By: Navarro VENTURA, Pito Davidson\.br\Date and Time Signed: 05/17/24 11:03 EDT Office Visiton 05-13-2024 Follow-up visit [id number] Tremaine Juarez 1945 M Date Provider Department Center 05/13/2024 DANIELLA CARDONA KRISTEN [facility] Family History Problem Relation Age of Onset Stroke Father Family Status - Relation Status Age at Father Level of Service:43620 ME OFFICE/OUTPATIENT ESTABLISHED LOW MDM 20 MIN Normal [facility] No Panel Informationon 05-03 [facility] Type of biopsy: abernathy ential Informed [...] taken Amount of lidocaine used: 1.0 cc Believe.in Type of biopsy: abernathy ential Informed consent: [...] taken Amount of lidocaine used: 1.0 cc Believe.in Type of biopsy: abernathy ential Informed consent: [...] taken Amount of lidocaine used: 2.0 cc [employer] [facility] [employer] GLUCOSE, BLOOD (POC)on 04-29 Glucose [Mass/Vol] 98 mg/dL 74 - 99 mg/dL [facility] Comment on above: Location:[facility], [address] [place] [address] , [place], [place], [facility] The Accu-Chek Inform II glucose meter [...] blood gas instrument) in the above situations. [facility] NM PET/CT SKULL-THIGH SUBQon 04-29-2024 [...] * Uptake Time: 45 minutes * Radiopharmaceutical: I17-Cmlhrpigljyzolrxaq (FDG) COMPARISON: No previous FDG PET/CT available [...] any questions regarding this interpretation, please call [phone]. If you are unable to reach us at the number above, please feel free to contact [facility] eRadiology at [phone]. [id number] Normal [facility] Urology Office/Clinic [...] [facility] [address], [place] [address] [phone] Additional Instructions: 1 yr w/ PSA Patient [...] Cap, 300 (more content not included)... Normal [facility] Comment on above: Result Comment: Elec tronically Signed By: Oni MCKEON MD\.br\Date and Time Signed: 04/22/24 10:37 EDT\.br\Electronically Co-Signed By: Nettie Wolff\.br\Date and Time Co-Signed: 04/22/24 10:36 EDT CBC W Auto Differential pane l (Bld)on 04-20-2024 Anisocytosis Ql (Bld) Present [facility] Basophils (Bld) [#/Vol] 0.00 10*3/uL NINF [facility] Basophils/100 WBC (Bld) 0.0 % [facility] Differential cell count method Nom (Bld) Manual [facility] Eosinophils (Bld) [#/Vol] 0.00 10*3/uL [facility] Eosinophils/100 WBC (Bld) 0.0 % [facility] Erythrocyte distribution width (RBC) [Ratio] 15.2 % High 11.5 - 15.0 % [facility] Hematocrit (Bld) [Volume fraction] 37.6 % Low 39.0 - 51.0 % [facility] Hemoglobin (Bld) [Mass/Vol] 12.3 g/dL Low 13.0 - 17.0 g/dL [facility] Interpretation and review of laboratory results Abnormal [facility] Lymphocytes (Bld) [#/Vol] 0.75 10*3/uL Low [facility] Lymphocytes/100 WBC (Bld) 17.0 % [facility] MCH (RBC) [Entitic mass] 34.2 pg High 26.0 - 34.[address] [facility] MCHC (RBC) [Mass/Vol] 32.7 g/dL 30.5 - 36.0 g/dL [facility] MCV (RBC) [Entitic vol] 104.4 fL High 80.0 - 100.[address] [facility] [place] % 1.0 % [facility] Monocytes (Bld) [#/Vol] 1.73 10*3/uL High NINF [facility] Monocytes/100 WBC (Bld) 39.0 % [facility] Neutrophils (Bld) [#/Vol] 1.91 10*3/uL [facility] Neutrophils/100 WBC (Bld) 43.0 % [facility] Nucleated RBC (Bld) [#/Vol] NINF [facility] Nucleated RBC/100 WBC (Bld) [Ratio] 0.0 % /[address] [facility] Ovalocytes LM Ql (Bld) Few [facility] Platelet mean volume (Bld) [Entitic vol] 10.0 fL 9.0 - 12.[address] [facility] Platelets (Bld) [#/Vol] 136 10*3/uL Low [facility] Platelets Estimate (Bld) [#/Vol] Adequate [facility] Polychromasia LM Ql (Bld) Slight [facility] RBC (Bld) [#/Vol] 3.60 10*6/uL Low 4.20 - 6.0 0 m/uL [facility] Red Cell Morph Reviewed: see result s of individual morphologies [facility] WBC (Bld) [#/Vol] 4.44 10*3/uL [facility] WBC Left Shift Ql (Bld) Present [facility] ANC=1.55 The followi ng results were reported as preliminary values due to instrument flagging. Interpret with caution. Final results may vary.Results requested and read back by: [email or web address] @1418 9'3'24 GAY This is an appended report. These results have been appended to a previously verified report. [facility] [place] Basic metabolic 2000 panelon 04-19-2024 Anion gap [Moles/Vol] 15 mmol/L 8 - 15 mmol/L [facility] Calcium [Mass/Vol] 9.2 mg/dL 8.5 - 10. 2 mg/dL [facility] Comment on above: Corrected result: Pr eviously reported as 9.6 mg/dL on 04/19/2024 at 2:41 PM EDT. Chloride [Moles/Vol] 105 mmol/L 98 - 10 7 mmol/L [facility] CO2 [Moles/Vol] 25 mmol/L 22 - 30 mmol/L [facility] Comment on above: Corrected result: Pr eviously reported as 27 mmol/L on 04/19/2024 at 2:41 PM EDT. Creatinine [Mass/Vol] 1.37 mg/dL High 0.73 - 1.22 mg/dL [facility] Comment on above: Corrected result: Pr eviously reported as 1.36 mg/dL on 04/19/2024 at 2:41 PM EDT. GFR/1.73 sq M.predicted among non-blacks MDRD (S/P/Bld) [Vol rate/Area] 53 mL/min/{1.73_m2} Low - PINF [facility] Comment on above: Estimated Glomerular [...] 120 mg/dL High 74 - 99 mg/dL [facility] Comment on above: The [place] Diabete s Association (ADA) provides guidance for [...] Standards of Medical Care in Diabetes 2016, [place] [employer] Association. Diabetes Care. 2016.39(Suppl 1). Corrected result: Previously reported as 126 mg/dL on 04/19/2024 at 2:41 PM EDT. Interpretation and review of laboratory results Abnormal [facility] Potassium [Moles/Vol] 4.4 mmol/L 3.7 - 5.1 mmol/L [facility] Sodium [Moles/Vol] 145 mmol/L High 136 - 144 mmol/L [facility] Urea nitrogen [Mass/Vol] 20 mg/dL 9 - 24 mg/dL [facility] Comment on above: Corrected result: Pr eviously reported as 21 mg/dL on 04/19/2024 at 2:41 PM EDT. [facility] Anion gap [Moles/Vol] 15 mmol/L Normal 8-15 [facility] Comment on above: Order Comment: Speci men Type: BLOOD SPECIMENOrdering Facility: [facility] Address: [address] [place] [address] Performed By: #### 2 4321-2 ####[facility]IA [id number] [place] [address] [place] Calcium [Mass/Vol] 9.2 mg/dL Normal 8.5-10.2 [facility] Comment on above: Order Comment: Speci men Type: BLOOD SPECIMENOrdering Facility: [facility] Address: [address] [place] [address] Result Comment: Enmanuel ected result: Previously reported as 9.6 mg/dL on 04/19/2024 at 2:41 PM EDT. Performed By: #### 2 4321-2 ####[facility]CLIA [id number] [place] [address] [place] Chloride [Moles/Vol] 105 mmol/L Normal 98-107 [facility] Comment on above: Order Comment: Speci men Type: BLOOD SPECIMENOrdering Facility: [facility] Address: [address] [place] [address] Performed By: #### 2 4321-2 ####[facility]IA [id number] [place] [address] [place] CO2 [Moles/Vol] 25 mmol/L Normal 22-30 [facility] Comment on above: Order Comment: Speci men Type: BLOOD SPECIMENOrdering Facility: [facility] Address: [address] [place] [address] Result Comment: Enmanuel ected result: Previously reported as 27 mmol/L on 04/19/2024 at 2:41 PM EDT. Performed By: #### 2 4321-2 ####[facility]CLIA [id number] [place] [address] [place] Creatinine [Mass/Vol] 1.37 mg/dL High 0.73-1.22 [facility] Comment on above: Order Comment: Speci men Type: BLOOD SPECIMENOrdering Facility: [facility] Address: [address] [place] [address] Result Comment: Enmanuel ected result: Previously reported as 1.36 mg/dL on 04/19/2024 at 2:41 PM EDT. Performed By: #### 2 4321-2 ####[facility]IA [id number] [place] [address] [place] Creatinine and Glomerular filtration rate.predicted panel (S/P/Bld) 53 mL/min/1.73m??? Low >=60 [facility] Comment on above: Order Comment: Speci men Type: BLOOD SPECIMENOrdering Facility: [facility] Address: [address] [place] [address] Result Comment: Ary mated Glomerular Filtration Rate [...] PM EDT. Performed By: #### 2 4321-2 ####[facility]IA [id number] [place] [address] [place] Glucose [Mass/Vol] 120 mg/dL High 74-99 [facility] Comment on above: Order Comment: Speci men Type: BLOOD SPECIMENOrdering Facility: [facility] Address: [address] [place] [address] Result Comment: The [place] Diabetes Association (ADA) provides guidance for cutoff [...] Standards of Medical Care in Diabetes 2016, [place] [employer] Association. Diabetes Care. 2016.39(Suppl 1). Corrected result: Previously reported as 126 mg/dL on 04/19/2024 at 2:41 PM EDT. Performed By: #### 2 4321-2 ####[facility] [id number] [place] [address] [place] Potassium [Moles/Vol] 4.4 mmol/L Normal 3.7-5.1 [facility] Comment on above: Order Comment: Speci men Type: BLOOD SPECIMENOrdering Facility: [facility] Address: [address] [place] [address] Performed By: #### 2 4321-2 ####[facility] [id number] [place] [address] [place] Sodium [Moles/Vol] 145 mmol/L High 136-144 [facility] Comment on above: Order Comment: Speci men Type: BLOOD SPECIMENOrdering Facility: [facility] Address: [address] [place] [address] Performed By: #### 2 4321-2 ####[facility] [id number] [place] [address] [place] Urea nitrogen [Mass/Vol] 20 mg/dL Normal 9-24 [facility] [facility] Comment on [facility]: Order Comment: Speci men Type: BLOOD SPECIMENOrdering Facility: [facility] Address: [address] [place] [address] Result Comment: Enmanuel ected result: Previously reported as 21 mg/dL on 04/19/2024 at 2:41 PM EDT. Performed By: #### 2 4321-2 ####[facility] LABCLIA [id number] [place] [address] [place] CBC W Auto Differential pane l (Bld)on 04-19-2024 Anisocytosis Ql (Bld) Present Normal [facility] Comment on above: Order Comment: Speci men Type: BLOOD SPECIMENOrdering Facility: [facility] Address: [address] [place] [address] Performed By: #### 5 7021-8 ####[facility] LABCLIA [id number] [address] LABCLIA [id number] [place] [address] [place] Basophils (Bld) [#/Vol] 0.00 10*3/uL Normal <0.11 [facility] Comment on above: Order Comment: Speci men Type: BLOOD SPECIMENOrdering Facility: [facility] Address: [address] [place] [address] Performed By: #### 5 7021-8 ####[facility] LABCLIA [id number] [address] LABCLIA [id number] [place] [address] [place] Basophils/100 WBC (Bld) 0.0 % Normal [facility] Comment on above: Order Comment: Speci men Type: BLOOD SPECIMENOrdering Facility: [facility] Address: [address] [place] [address] Performed By: #### 5 7021-8 ####[facility] LABCLIA [id number] [address] LABCLIA [id number] [place] [address] [place] Differential cell count method Nom (Bld) Manual Normal [facility] Comment on above: Order Comment: Speci men Type: BLOOD SPECIMENOrdering Facility: [facility] Address: [address] [place] [address] Performed By: #### 5 7021-8 ####[facility] LABCLIA [id number] [address] LABCLIA [id number] [place] [address] [place] Eosinophils (Bld) [#/Vol] 0.00 10*3/uL Normal <0.46 [facility] Comment on above: Order Comment: Speci men Type: BLOOD SPECIMENOrdering Facility: [facility] Address: [address] [place] [address] Performed By: #### 5 7021-8 ####[facility] LABCLIA [id number] [address] LABCLIA [id number] [place] [address] [place] Eosinophils/100 WBC (Bld) 0.0 % Normal [facility] Comment on above: Order Comment: Speci men Type: BLOOD SPECIMENOrdering Facility: [facility] Address: [address] [place] [address] Performed By: #### 5 7021-8 ####[facility] LABCLIA [id number] [address] LABCLIA [id number] [place] [address] [place] Erythrocyte distribution width (RBC) [Ratio] 15.2 % High 11.5-15.0 [facility] Comment on above: Order Comment: Speci men Type: BLOOD SPECIMENOrdering Facility: [facility] Address: [address] [place] [address] Performed By: #### 5 7021-8 ####[facility] LABCLIA [id number] [place] [id number] LABCLIA [id number] [place] [address] [place] Hematocrit (Bld) [Volume fraction] 37.6 % Low 39.0-51.0 [facility] Comment on above: Order Comment: Speci men Type: BLOOD SPECIMENOrdering Facility: [facility] Address: [address] [place] [address] Performed By: #### 5 7021-8 ####[facility] LABCLIA [id number] [address] LABCLIA [id number] [place] [address] [place] Hemoglobin (Bld) [Mass/Vol] 12.3 g/dL Low 13.0-17.0 [facility] Comment on above: Order Comment: Speci men Type: BLOOD SPECIMENOrdering Facility: [facility] Address: [address] [place] [address] Performed By: #### 5 7021-8 ####[facility] LABCLIA [id number] [address] LABCLIA [id number] [place] [address] [place] Lymphocytes (Bld) [#/Vol] 0.75 10*3/uL Low 1.00-4.00 [facility] Comment on above: Order Comment: Speci men Type: BLOOD SPECIMENOrdering Facility: [facility] Address: [address] [place] [address] Performed By: #### 5 7021-8 ####[facility] LABCLIA [id number] [address] LABCLIA [id number] [place] [address] [place] Lymphocytes/100 WBC (Bld) 17.0 % Normal [facility] Comment on above: Order Comment: Speci men Type: BLOOD SPECIMENOrdering Facility: [facility] Address: [address] [place] [address] Performed By: #### 5 7021-8 ####[facility] LABCLIA [id number] [address] LABCLIA [id number] [place] [address] [place] MCH (RBC) [Entitic mass] 34.2 pg High 26.0-34.0 [facility] Comment on above: Order Comment: Speci men Type: BLOOD SPECIMENOrdering Facility: [facility] Address: [address] [place] [address] Performed By: #### 5 7021-8 ####[facility] LABCLIA [id number] [address] LABCLIA [id number] [place] [address] [place] MCHC (RBC) [Mass/Vol] 32.7 g/dL Normal 30.5-36.0 [facility] Comment on above: Order Comment: Speci men Type: BLOOD SPECIMENOrdering Facility: [facility] Address: [address] [place] [address] Performed By: #### 5 7021-8 ####[facility] LABCLIA [id number] [address] LABCLIA [id number] [place] [address] [place] MCV (RBC) [Entitic vol] 104.4 fL High 80.0-100.0 [facility] Comment on above: Order Comment: Speci men Type: BLOOD SPECIMENOrdering Facility: [facility] Address: [address] [place] [address] Performed By: #### 5 7021-8 ####[facility] LABCLIA [id number] [place] [address] LABCLIA [id number] [place] [address] [place] Metamyelocytes/100 WBC (Bld) 1.0 % Normal [facility] Comment on above: Order Comment: Speci men Type: BLOOD SPECIMENOrdering Facility: [facility] Address: [address] [place] [address] Performed By: #### 5 7021-8 ####[facility] LABCLIA [id number] [address] LABCLIA [id number] [place] [address] [place] Monocytes (Bld) [#/Vol] 1.73 10*3/uL High <0.87 [facility] Comment on above: Order Comment: Speci men Type: BLOOD SPECIMENOrdering Facility: [facility] Address: [address] [place] [address] Performed By: #### 5 7021-8 ####[facility] LABCLIA [id number] [address] LABCLIA [id number] [place] [address] [place] Monocytes/100 WBC (Bld) 39.0 % Normal [facility] Comment on above: Order Comment: Speci men Type: BLOOD SPECIMENOrdering Facility: [facility] Address: [address] [place] [address] Performed By: #### 5 7021-8 ####[facility] LABCLIA [id number] [address] LABCLIA [id number] [place] [address] [place] Neutrophils (Bld) [#/Vol] 1.91 10*3/uL Normal 1.45-7.50 [facility] Comment on above: Order Comment: Speci men Type: BLOOD SPECIMENOrdering Facility: [facility] Address: [address] [place] [address] Performed By: #### 5 7021-8 ####[facility] LABCLIA [id number] [address] LABCLIA [id number] [place] [address] [place] Neutrophils/100 WBC (Bld) 43.0 % Normal [facility] Comment on above: Order Comment: Speci men Type: BLOOD SPECIMENOrdering Facility: [facility] Address: [address] [place] [address] Performed By: #### 5 7021-8 ####[facility] LABCLIA [id number] [address] LABCLIA [id number] [place] [address] [place] Nucleated RBC (Bld) [#/Vol] 10*3/uL Normal <0.01 [facility] Comment on above: Order Comment: Speci men Type: BLOOD SPECIMENOrdering Facility: [facility] Address: [address] [place] [address] Performed By: #### 5 7021-8 ####[facility] LABCLIA [id number] [address] LABCLIA [id number] [place] [address] [place] Nucleated RBC/100 WBC (Bld) [Ratio] 0.0 /100 WBC Normal [facility] Comment on above: Order Comment: Speci men Type: BLOOD SPECIMENOrdering Facility: [facility] Address: [address] [place] [address] Performed By: #### 5 7021-8 ####[facility] LABCLIA [id number] [address] LABCLIA [id number] [place] [address] [place] Ovalocytes LM Ql (Bld) Few Normal [facility] Comment on above: Order Comment: Speci men Type: BLOOD SPECIMENOrdering Facility: [facility] Address: [address] [place] [address] Performed By: #### 5 7021-8 ####[facility] LABCLIA [id number] [address] LABCLIA [id number] [place] [address] [place] Platelet mean volume (Bld) [Entitic vol] 10.0 fL Normal 9.0-12.7 [facility] Comment on above: Order Comment: Speci men Type: BLOOD SPECIMENOrdering Facility: [facility] Address: [address] [place] [address] Performed By: #### 5 7021-8 ####[facility] LABCLIA [id number] [address] LABCLIA [id number] [place] [address] [place] Platelets (Bld) [#/Vol] 136 10*3/uL Low 150-400 [facility] Comment on above: Order Comment: Speci men Type: BLOOD SPECIMENOrdering Facility: [facility] Address: [address] [place] [address] Performed By: #### 5 7021-8 ####[facility] LABCLIA [id number] [address] LABCLIA [id number] [place] [address] [place] Platelets Estimate (Bld) [#/Vol] Adequate Normal [facility] Comment on above: Order Comment: Speci men Type: BLOOD SPECIMENOrdering Facility: [facility] Address: [address] [place], [place] [address] Performed By: #### 5 7021-8 ####[facility] LABCLIA [id number] [address] LABCLIA [id number] [place] [address] [place] Polychromasia LM Ql (Bld) Slight Normal [facility] Comment on above: Order Comment: Speci men Type: BLOOD SPECIMENOrdering Facility: [facility] Address: [address] [place] [address] Performed By: #### 5 7021-8 ####[facility] LABCLIA [id number] [address] LABCLIA [id number] [place] [address] [place] RBC (Bld) [#/Vol] 3.60 10*6/uL Low 4.20-6.00 [facility] Comment on above: Order Comment: Speci men Type: BLOOD SPECIMENOrdering Facility: [facility] Address: [address] [place] [address] Performed By: #### 5 7021-8 ####[facility] LABCLIA [id number] [address] LABCLIA [id number] [place] [address] [place] RED CELL MORPH Reviewed: see result s of individual morphologies Normal [facility] Comment on above: Order Comment: Speci men Type: BLOOD SPECIMENOrdering Facility: [facility] Address: [address] [place] [address] Performed By: #### 5 7021-8 ####[facility] LABCLIA [id number] [address] LABCLIA [id number] [place] [address] [place] WBC (Bld) [#/Vol] 4.44 10*3/uL Normal 3.70-11.00 [facility] Comment on above: Order Comment: Speci men Type: BLOOD SPECIMENOrdering Facility: [facility] Address: [address] [place] [address] Performed By: #### 5 7021-8 ####[facility] LABCLIA [id number] [address] LABIA [id number] [place] [address] [place] WBC Left Shift Ql (Bld) Present Normal [facility] Comment on above: Order Comment: Speci men Type: BLOOD SPECIMENOrdering Facility: [facility] Address: [address] [place] [address] Performed By: #### 5 7021-8 ####[facility] LABCLIA [id number] [address] LABCLIA [id number] [address] [place] CNOVSPon 04-19-2024 CNOVSP Visit (SP) Office (H EMASA) -- CHIKI JUAREZ ([id number]) 1945 M Date Time Provider Department 04/19/24 [...] visit here 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 For [...] included)... Normal [facility] CHIKI JUAREZ ([id number]) 1945 M Date Time Provider Department 04/19/[address] [facility] During your visit today, we recorded the following information about you: Mechelle Allred 04/19/2024 3:08 PM Signed Please ref patient to [facility] D[facility]. Dx Skin Lesion blaise facial area. Their office to call the patient to schedule/ Rhona, Please fax records Julius, Please follow up on this appt. Jennie Ye 04/20/2024 9:34 AM Signed Rhona: Information ready for you. Su Hodges 04/20/2024 10:41 AM Signed Records faxed to [facility] Derm[facility]. Su Pickett 04/26/2024 10:35 AM Signed [...] Comment: Speci men Type: BLOOD SPECIMENOrdering Facility: [facility] Address: [address] [place] [address] Performed By: #### I FESC ####[facility] LABIA [id number] [address] [place] MPA RESULT M protein is present. Abnormal No M p rotein is identified. [facility] Comment on above: Order Comment: Speci men Type: BLOOD SPECIMENOrdering Facility: [facility] Address: [address] [place] [address] Performed By: #### I FESC ####[facility] LABIA [id number] [address] [place] STAFF REVIEW ([facility]) Reviewed by Alison Langford MD Normal [facility] Comment on above: Order Comment: Speci men Type: BLOOD SPECIMENOrdering Facility: [facility] Address: [address] [place] [address] Performed By: #### I FESC ####[facility] LABCLIA [id number] [place] [id number] [place] IMMUNOGLOBULINS,IGG,IGA,IGMo n 04-19-2024 IgA [Mass/Vol] 124 mg/dL Normal 70-400 [facility] Comment on above: Order Comment: Sonyi men Type: BLOOD SPECIMENOrdering Facility: [facility] Address: [address] [place] [address] Performed By: #### S ERIMM ####[facility] LABCLIA [id number] [place] [address] [place] IgG [Mass/Vol] 1147 mg/dL Normal 700-1600 [facility] Comment on above: Order Comment: Speci men Type: BLOOD SPECIMENOrdering Facility: [facility] Address: [address] [place] [address] Performed By: #### S ERIMM ####[facility] LABCLIA [id number] [place] [address] [place] IgM [Mass/Vol] 75 mg/dL Normal 40-230 [facility] Comment on above: Order Comment: Speci men Type: BLOOD SPECIMENOrdering Facility: [facility] Address: [address] [place] [address] Performed By: #### S ERIMM ####[facility] LABCLIA [id number] [place] [address] [place] KAPPA/ARDON,FREE,SERon 2023 Immunoglobulin light chains.kappa.free (S) [Mass/Vol] 34.6 mg/L High 3.3-19.4 [facility] Comment on above: Order Comment: Speci men Type: BLOOD SPECIMEN [facility] Address: [address] [place] [address] Result Comment: Rare ly, increased serum free light chains levels may not be detected or accurately quantified due to prozone phenomenon or in high viscosity samples using this immunoturbidimetric assay. Correlation with other laboratory results and clinical findings is recommended. The Baskin Free Light Chain was performed using the Binding Site Optilite immunoturbidimetric method. Result obtained with different assay methods or kits cannot be used interchangeably. Performed By: #### I FESC #### [facility] CLIA [id number] [address] [place] [address] [place] Immunoglobulin light chains.kappa/Immunog lobulin light chains.lambda (S) [Mass ratio] 1.90 High 0.26-1.65 [facility] Comment on above: Order Comment: Speci men Type: BLOOD SPECIMEN [facility] Address: [address] [place] [address] Performed By: #### I FESC #### [facility] CLIA [id number] [address] [place] [address] [place] Immunoglobulin light chains.lambda.free [Mass/Vol] 18.2 mg/L Normal 5.7-26.3 [facility] Comment on above: Order Comment: Speci men Type: BLOOD SPECIMEN [facility] Address: [address] [place] [address] Result Comment: Rare ly, increased serum free [...] interchangeably. Performed By: #### I FES #### [facility] CLIA [id number] [address] [place] [address] [place] PROTEIN ELECTROPHORESIS SERU M WITH CARSON (P)on 04-19-2024 Albumin [Mass/Vol] 3.82 g/dL Normal 3.43-5.41 [facility] Comment on above: Order Comment: Speci men Type: BLOOD SPECIMENOrdering Facility: [facility] Address: [address] [place] [address] Performed By: #### L [id number] ####[facility] LABCLIA [id number] [place] [address] [place] Alpha 1 globulin Elph [Mass/Vol] 0.33 g/dL Normal 0.18-0.43 [facility] Comment on above: Order Comment: Speci men Type: BLOOD SPECIMENOrdering Facility: [facility] Address: [address] [place] [address] Performed By: #### L [id number] ####[facility] LABCLIA [id number] [address] [place] Alpha 2 globulin Elph [Mass/Vol] 0.69 g/dL Normal 0.42-0.98 [facility] Comment on above: Order Comment: Speci men Type: BLOOD SPECIMENOrdering Facility: [facility] Address: [address] [place] [address] Performed By: #### L [id number] ####[facility] LABCLIA [id number] [address] [place] Beta globulin Elph [Mass/Vol] 0.80 g/dL Normal 0.61-1.17 [facility] Comment on above: Order Comment: Speci men Type: BLOOD SPECIMENOrdering Facility: [facility] Address: [address] [place] [address] Performed By: #### L [id number] ####[facility] LABIA [id number] [address] [place] OF [facility] COMMENT (SERUM PROT ELECTRO) Monoclonal Protein analysis (immunofixation) is not indicated. Normal [facility] Comment on above: Order Comment: Speci men Type: BLOOD SPECIMENOrdering Facility: [facility] Address: [address] [place] [address] Performed By: #### L [id number] ####[facility] LABCLIA [id number] [address] [place] Gamma globulin Elph [Mass/Vol] 0.95 g/dL Normal 0.53-1.51 [facility] Comment on above: Order Comment: Speci men Type: BLOOD SPECIMENOrdering Facility: [facility] Address: [address] [place] [address] Performed By: #### L [id number] ####[facility] LABCLIA [id number] [address] [place] INTERPRETATION COMMENT FOR [...] Comment: Speci men Type: BLOOD SPECIMENOrdering Facility: [facility] Address: [address] [place] [address] Performed By: #### L [id number] ####[facility] LABCLIA [id number] [place] [address] [place] M-PROTEIN LOCATION Normal [facility] Comment on above: Order Comment: Speci men Type: BLOOD SPECIMENOrdering Facility: [facility] Address: [address] [place] [address] Result Comment: Not Applicable. Performed By: #### L [id number] ####[facility] LABCLIA [id number] [place] [address] [place] Protein Fractions [Interp] An atypical region of restricted mobility is identified on protein electrophoresis. Abnormal No definitive M protein is identified on protein electrophore sis. [facility] Comment on above: Order Comment: Speci men Type: BLOOD SPECIMENOrdering Facility: [facility] Address: [address] [place] [address] Performed By: #### L [id number] ####[facility] LABCLIA [id number] [place] [id number] [place] Protein.monoclonal Elph [Mass/Vol] 0.00 g/dL Normal <=0.00 [facility] Comment on above: Order Comment: Speci men Type: BLOOD SPECIMENOrdering Facility: [facility] Address: [address] [place], [place] [address] Performed By: #### L [id number] ####[facility] LABCLIA [id number] [place] [id number] [place] SPE STAFF REVIEW Reviewed by Alison Langford MD Normal [facility] Comment on above: Order Comment: Speci men Type: BLOOD SPECIMENOrdering Facility: [facility] Address: [address] [place] [address] Performed By: #### L [id number] ####[facility] LABCLIA [id number] [place] [address] [place] Prot SerPl-mCncon 04-19-2024 Protein [Mass/Vol] 6.6 g/dL Normal 6.3-8.0 [facility] Comment on above: Order Comment: Speci men Type: BLOOD SPECIMENOrdering Facility: [facility] Address: [address] [place] [address] Performed By: #### 2 885-2 ####[facility] LABCLIA [id number] [place] [address] [place] Reminderson 03-03-2024 Reminders Reminders From: Solange Broussard To: EU - Recalls Mckeon; Sent: 06/09/2023 16:03:24 EDT Show up: 01/16/2024 16:03:00 EDT Subject: renal US Due Date/Time: 02/01/2024 16:03:00 EDT Reminder/Recall Patient needs renal US prior to February 2024 appt f/u scheduled 03/14/24 LM on pt's VM notifying him that order for ZAMZAM has been faxed to [facility]. They should be reaching out to get him scheduled. If he does not hear from them w/in 1wk he is to call our office. F/U schedule dw/PRW 03/14/24 to review results. ZAMZAM scheduled 03/03/24. F/U schedule dw/PRW 03/14/24 to review results. Completed Normal [facility] Oswaldo 02-02-2024 RAINA Telephone (DONITA) -- ALTHEACHIKI HERNANDEZ ([id number]) 1945 M Date Time Provider Department 02/02/24 [...] Comment: Speci men Type: BLOOD SPECIMENOrdering Facility: [facility] Address: [address] [place] [address] [place] [address] Performed By: #### 2 4321-2 ####[facility] LABCLIA [id number] [place] [address] Calcium [Mass/Vol] 9.3 mg/dL Normal 8.5-10.2 [facility] Comment on above: Order Comment: Speci men Type: BLOOD SPECIMENOrdering Facility: [facility] Address: [address] [place] [address] Performed By: #### 2 4321-2 ####[facility] LABCLIA [id number] [place] [address] Chloride [Moles/Vol] 109 mmol/L High 98-107 [facility] Comment on above: Order Comment: Speci men Type: BLOOD SPECIMENOrdering Facility: [facility] Address: [address] [place] [address] Performed By: #### 2 4321-2 ####[facility] LABCLIA [id number] [place] [address] CO2 [Moles/Vol] 26 mmol/L Normal 22-30 [facility] Comment on above: Order Comment: Speci men Type: BLOOD SPECIMENOrdering Facility: [facility] Address: [address] [place] [address] Performed By: #### 2 4321-2 ####[facility] LABCLIA [id number] [place] [address] Creatinine [Mass/Vol] 1.31 mg/dL High 0.73-1.22 [facility] Comment on above: Order Comment: Speci men Type: BLOOD SPECIMENOrdering Facility: [facility] Address: [address] [place] [address] Performed By: #### 2 4321-2 ####[facility] LABCLIA [id number] [place] [address] Creatinine and Glomerular filtration rate.predicted panel (S/P/Bld) 56 mL/min/1.73m??? Low >=60 [facility] Comment on above: Order Comment: Speci men Type: BLOOD SPECIMENOrdering Facility: [facility] Address: [address] [id number] Result Comment: Ary mated Glomerular Filtration Rate [...] GFR. Performed By: #### 2 4321-2 ####[facility] LABCLIA [id number] [place] [address] Glucose [Mass/Vol] 121 mg/dL High 74-99 [facility] Comment on above: Order Comment: Liliya hadley Type: BLOOD SPECIMENOrdering Facility: [facility] Address: [address] [place] [address] Result Comment: The [place] [employer] (ADA) provides guidance for cutoff [...] Standards of Medical Care in Diabetes 2016, [place] [employer]. Diabetes Care. 2016.39(Suppl 1). Performed By: #### 2 4321-2 ####[facility] LABCLIA [id number] [place] [address] Potassium [Moles/Vol] 4.1 mmol/L Normal 3.7-5.1 [facility] Comment on above: Order Comment: Liliya hadley Type: BLOOD SPECIMENOrdering Facility: [facility] Address: [address] [id number] Performed By: #### 2 4321-2 ####[facility] LABCLIA [id number] [place] [address] Sodium [Moles/Vol] 142 mmol/L Normal 136-144 [facility] Comment on above: Order Comment: Speci men Type: BLOOD SPECIMENOrdering Facility: [facility] Address: [address] [place] [address] Performed By: #### 2 4321-2 ####[facility] LABCLIA [id number] [place] [address] Urea nitrogen [Mass/Vol] 17 mg/dL Normal 9-24 [facility] Comment on above: Order Comment: Speci men Type: BLOOD SPECIMENOrdering Facility: [facility] Address: [address] [place] [address] Performed By: #### 2 4321-2 ####[facility] LABCLIA [id number] [place] [address] CBC W Auto Differential pane l (Bld)on 01-21-2024 Basophils (Bld) [#/Vol] 10*3/uL Normal <0.11 [facility] Comment on above: Order Comment: Speci men Type: BLOOD SPECIMENOrdering Facility: [facility] Address: [address] [place] [address] Performed By: #### 5 7021-8 ####[facility] LABCLIA [id number] [place] [address] Basophils/100 WBC (Bld) 0.3 % Normal [facility] Comment on above: Order Comment: Speci men Type: BLOOD SPECIMENOrdering Facility: [facility] Address: [address] [place] [address] Performed By: #### 5 7021-8 ####[facility] LABCLIA [id number] [place] [address] Differential cell count method Nom (Bld) Auto Normal [facility] Comment on above: Order Comment: Speci men Type: BLOOD SPECIMENOrdering Facility: [facility] Address: [address] [place] [address] Performed By: #### 5 7021-8 ####[facility] LABCLIA [id number] [place] [address] Eosinophils (Bld) [#/Vol] 10*3/uL Normal <0.46 [facility] Comment on above: Order Comment: Speci men Type: BLOOD SPECIMENOrdering Facility: [facility] Address: [address] [place] [address] Performed By: #### 5 7021-8 ####[facility] LABCLIA [id number] [place] [address] Eosinophils/100 WBC (Bld) 0.3 % Normal [facility] Comment on above: Order Comment: Speci men Type: BLOOD SPECIMENOrdering Facility: [facility] Address: [address] [place] [address] Performed By: #### 5 7021-8 ####[facility] LABCLIA [id number] [place] [address] Erythrocyte distribution width (RBC) [Ratio] 14.6 % Normal 11.5-15.0 [facility] Comment on above: Order Comment: Speci men Type: BLOOD SPECIMENOrdering Facility: [facility] Address: [address] [place] [address] Performed By: #### 5 7021-8 ####[facility] LABCLIA [id number] [place] [address] Hematocrit (Bld) [Volume fraction] 35.7 % Low 39.0-51.0 [facility] Comment on above: Order Comment: Speci men Type: BLOOD SPECIMENOrdering Facility: [facility] Address: [address] [place] [address] Performed By: #### 5 7021-8 ####[facility] LABCLIA [id number] [place] [address] Hemoglobin (Bld) [Mass/Vol] 11.4 g/dL Low 13.0-17.0 [facility] Comment on above: Order Comment: Speci men Type: BLOOD SPECIMENOrdering Facility: [facility] Address: [address] [place] [address] Performed By: #### 5 7021-8 ####[facility] LABCLIA [id number] [place] [address] Immature granulocytes (Bld) [#/Vol] 0.08 10*3/uL Normal <0.10 [facility] Comment on above: Order Comment: Speci men Type: BLOOD SPECIMENOrdering Facility: [facility] Address: [address] [place] [address] Performed By: #### 5 7021-8 ####[facility] LABCLIA [id number] [place] [address] Immature granulocytes/100 WBC (Bld) 2.2 % Normal [facility] Comment on above: Order Comment: Speci men Type: BLOOD SPECIMENOrdering Facility: [facility] Address: [address] [place] [address] Performed By: #### 5 7021-8 ####[facility] LABCLIA [id number] [place] [address] Lymphocytes (Bld) [#/Vol] 0.92 10*3/uL Low 1.00-4.00 [facility] Comment on above: Order Comment: Speci men Type: BLOOD SPECIMENOrdering Facility: [facility] Address: [address] [place] [address] Performed By: #### 5 7021-8 ####[facility] LABCLIA [id number] [place] [address] Lymphocytes/100 WBC (Bld) 25.2 % Normal [facility] Comment on above: Order Comment: Speci men Type: BLOOD SPECIMENOrdering Facility: [facility] Address: [address] [place] [address] Performed By: #### 5 7021-8 ####[facility] LABCLIA [id number] [place] [address] MCH (RBC) [Entitic mass] 33.8 pg Normal 26.0-34.0 [facility] Comment on above: Order Comment: Speci men Type: BLOOD SPECIMENOrdering Facility: [facility] Address: [address] [place] [address] Performed By: #### 5 7021-8 ####[facility] LABCLIA [id number] [place] [address] MCHC (RBC) [Mass/Vol] 31.9 g/dL Normal 30.5-36.0 [facility] Comment on above: Order Comment: Speci men Type: BLOOD SPECIMENOrdering Facility: [facility] Address: [address] [place] [address] Performed By: #### 5 7021-8 ####[facility] LABCLIA [id number] [place] [address] MCV (RBC) [Entitic vol] 105.9 fL High 80.0-100.0 [facility] Comment on above: Order Comment: Speci men Type: BLOOD SPECIMENOrdering Facility: [facility] Address: [address] [place] [address] Performed By: #### 5 7021-8 ####[facility] LABCLIA [id number] [place] [address] Monocytes (Bld) [#/Vol] 1.38 10*3/uL High <0.87 [facility] Comment on above: Order Comment: Speci men Type: BLOOD SPECIMENOrdering Facility: [facility] Address: [address] [place] [address] Performed By: #### 5 7021-8 ####[facility] LABCLIA [id number] [place] [address] Monocytes/100 WBC (Bld) 37.8 % Normal [facility] Comment on above: Order Comment: Speci men Type: BLOOD SPECIMENOrdering Facility: [facility] Address: [address] [place] [address] Performed By: #### 5 7021-8 ####[facility] LABCLIA [id number] [place] [address] Neutrophils (Bld) [#/Vol] 1.25 10*3/uL Low 1.45-7.50 [facility] Comment on above: Order Comment: Speci men Type: BLOOD SPECIMENOrdering Facility: [facility] Address: [address] [place] [address] Performed By: #### 5 7021-8 ####[facility] LABCLIA [id number] [place] [address] Neutrophils/100 WBC (Bld) 34.2 % Normal [facility] Comment on above: Order Comment: Speci men Type: BLOOD SPECIMENOrdering Facility: [facility] Address: [address] [place] [address] Performed By: #### 5 7021-8 ####[facility] LABCLIA [id number] [place] [address] Nucleated RBC (Bld) [#/Vol] 10*3/uL Normal <0.01 [facility] Comment on above: Order Comment: Speci men Type: BLOOD SPECIMENOrdering Facility: [facility] Address: [address] [place] [address] Performed By: #### 5 7021-8 ####[facility] LABCLIA [id number] [place] [address] Nucleated RBC/100 WBC (Bld) [Ratio] 0.0 /100 WBC Normal [facility] Comment on above: Order Comment: Speci men Type: BLOOD SPECIMENOrdering Facility: [facility] Address: [address] [place] [address] Performed By: #### 5 7021-8 ####[facility] LABCLIA [id number] [place] [address] Platelet mean volume (Bld) [Entitic vol] 9.6 fL Normal 9.0-12.7 [facility] Comment on above: Order Comment: Speci men Type: BLOOD SPECIMENOrdering Facility: [facility] Address: [address] [place] [address] Performed By: #### 5 7021-8 ####[facility] LABCLIA [id number] [place] [address] Platelets (Bld) [#/Vol] 151 10*3/uL Normal 150-400 [facility] Comment on above: Order Comment: Speci men Type: BLOOD SPECIMENOrdering Facility: [facility] Address: [address] [place] [address] Performed By: #### 5 7021-8 ####[facility] LABIA [id number] [place] [address] RBC (Bld) [#/Vol] 3.37 10*6/uL Low 4.20-6.00 [facility] Comment on above: Order Comment: Speci men Type: BLOOD SPECIMENOrdering Facility: [facility] Address: [address] [place] [address] Performed By: #### 5 7021-8 ####[facility] LABIA [id number] [place] [address] WBC (Bld) [#/Vol] 3.65 10*3/uL Low 3.70-11.00 [facility] Comment on above: Order Comment: Speci men Type: BLOOD SPECIMENOrdering Facility: [facility] Address: [address] [place] [address] Performed By: #### 5 7021-8 ####[facility] LABIA [id number] [place] [address] IMMUNOFIXATION SCREEN, SERUM on 01-21-2024 INTERPRETATION (MPA) Atypical restricted band is present in the lambda region. Consistent with lambda containing monoclonal gammopathy. IgD and IgE negative by immunofixation. [place] Normal [facility] Comment on above: Order Comment: Speci men Type: BLOOD SPECIMEN [facility] Address: [address] [place] [address] Performed By: #### I FESC #### [facility] CLIA [id number] [address] [place] [address] [place] MPA RESULT M protein is present. Abnormal No M p rotein is identified. [facility] Comment on above: Order Comment: Speci men Type: BLOOD SPECIMEN [facility] Address: [address] [place] [address] Performed By: #### I FESC #### [facility] CLIA [id number] [address] [place] [address] OF [place] STAFF REVIEW (MPA) Reviewed by Dr. Rowan Ibarra MD [facility] Comment on above: Order Comment: Speci men Type: BLOOD SPECIMEN [facility] Address: [address] [place] [address] Performed By: #### I FESC #### [facility] CLIA [id number] [address] [place] [address] [place] IMMUNOGLOBULINS,IGG,IGA,IGMo n 01-21-2024 IgA [Mass/Vol] 110 mg/dL Normal 70-400 [facility] Comment on above: Order Comment: Speci men Type: BLOOD SPECIMEN [facility] Address: [address] [place] [address] Performed By: #### I FESC #### [facility] CLIA [id number] [address] [place] [address] [place] IgG [Mass/Vol] 1011 mg/dL Normal 700-1600 [facility] Comment on above: Order Comment: Speci men Type: BLOOD SPECIMEN [facility] Address: [address] [place] [address] Performed By: #### I FESC #### [facility] CLIA [id number] [address] [place] [address] [place] IgM [Mass/Vol] 64 mg/dL Normal 40-230 [facility] Comment on above: Order Comment: Speci men Type: BLOOD SPECIMEN [facility] Address: [address] [place] [address] Performed By: #### I FES #### [facility] CLIA [id number] [address] [place] [address] [place] KAPPA/ARDON,FREE,SERon 2023 Immunoglobulin light chains.kappa.free (S) [Mass/Vol] 30.8 mg/L High 3.3-19.4 [facility] Comment on above: Order Comment: Speci men Type: BLOOD SPECIMEN [facility] Address: [address] [place] [address] Result Comment: Rare ly, increased serum free light chains levels may not be detected or accurately quantified due to prozone phenomenon or in high viscosity samples using this immunoturbidimetric assay. Correlation with other laboratory results and clinical findings is recommended. The [place]askin Free Light Chain was performed using the Binding Site Optilite immunoturbidimetric method. Result obtained with different assay methods or kits cannot be used interchangeably. Performed By: #### K LFRS #### [facility] CLIA [id number] [address] [place] [address] [place] Immunoglobulin light chains.kappa/Immunog lobulin light chains.lambda (S) [Mass ratio] 1.77 High 0.26-1.65 [facility] Comment on above: Order Comment: Speci men Type: BLOOD SPECIMEN [facility] Address: [address] [place] [address] Performed By: #### K LFRS #### [facility] CLIA [id number] [address] [place] [address] [place] Immunoglobulin light chains.lambda.free [Mass/Vol] 17.4 mg/L Normal 5.7-26.3 [facility] Comment on above: Order Comment: Speci men Type: BLOOD SPECIMEN [facility] Address: [address] [place] [address] Result Comment: Rare ly, increased serum free [...] interchangeably. Performed By: #### K LFRS #### [facility] CLIA [id number] [address] [place] [address] [place] PROTEIN ELECTROPHORESIS SERU M WITH CARSON (P)on 01-21-2024 Albumin [Mass/Vol] 3.53 g/dL Normal 3.43-5.41 [facility] Comment on above: Order Comment: Speci men Type: BLOOD SPECIMENOrdering Facility: [facility] Address: [address] [place] [address] Performed By: #### L [id number] ####[facility] LABCLIA [id number] [place] [address] [place] Alpha 1 globulin Elph [Mass/Vol] 0.36 g/dL Normal 0.18-0.43 [facility] Comment on above: Order Comment: Speci men Type: BLOOD SPECIMENOrdering Facility: [facility] Address: [address] [place] [address] Performed By: #### L [id number] ####[facility] LABCLIA [id number] [place] [address] [place] Alpha 2 globulin Elph [Mass/Vol] 0.73 g/dL Normal 0.42-0.98 [facility] Comment on above: Order Comment: Speci men Type: BLOOD SPECIMENOrdering Facility: [facility] Address: [address] [place] [address] Performed By: #### L [id number] ####[facility] LABCLIA [id number] [place] [address] [place] Beta globulin Elph [Mass/Vol] 0.74 g/dL Normal 0.61-1.17 [facility] Comment on above: Order Comment: Speci men Type: BLOOD SPECIMENOrdering Facility: [facility] Address: [address] [place] [address] Performed By: #### L [id number] ####[facility] LABIA [id number] [place] [address] [place] COMMENT (SERUM PROT ELECTRO) Monoclonal Protein analysis (immunofixation) is not indicated. Normal [facility] Comment on above: Order Comment: Speci men Type: BLOOD SPECIMENOrdering Facility: [facility] Address: [address] [place] [address] Performed By: #### L [id number] ####[facility] [id number] [place] [address] [place] Gamma globulin Elph [Mass/Vol] 0.84 g/dL Normal 0.53-1.51 [facility] Comment on above: Order Comment: Speci men Type: BLOOD SPECIMENOrdering Facility: [facility] Address: [address] [place] [address] Performed By: #### L [id number] ####[facility] LABIA [id number] [place] [address] [place] INTERPRETATION COMMENT FOR PROTEIN ELECTROPHORESIS See separate immunofixation report for characterization of monoclonal gammopathy. Normal [facility] Comment on above: Order Comment: Speci men Type: BLOOD SPECIMENOrdering Facility: [facility] Address: [address] [place] [address] Performed By: #### L [id number] ####[facility] LABIA [id number] [place] [address] [place] M-PROTEIN LOCATION Gamma Fraction 1 Normal [facility] Comment on above: Order Comment: Speci men Type: BLOOD SPECIMENOrdering Facility: [facility] Address: [address] [place] [address] Performed By: #### L [id number] ####[facility] LABCLIA [id number] [place] [address] [place] Protein Fractions [Interp] An M protein is identified on protein electrophoresis. Abnormal No definitive M protein is identified on protein electrophore sis. [facility] Comment on above: Order Comment: Speci men Type: BLOOD SPECIMENOrdering Facility: [facility] Address: [address] [place] [address] Performed By: #### L [id number] ####[facility] LABIA [id number] [place] [address] [place] Protein.monoclonal Elph [Mass/Vol] 0.10 g/dL High <=0.00 [facility] Comment on above: Order Comment: Speci men Type: BLOOD SPECIMENOrdering Facility: [facility] Address: [address] [place] [address] Performed By: #### L [id number] ####[facility] LABIA [id number] [place] [address] [place] SPE STAFF REVIEW Reviewed by Fran Boyd MD, Ph.D ([id number]) Normal [facility] Comment on above: Order Comment: Speci men Type: BLOOD SPECIMENOrdering Facility: [facility] Address: [address] [place] [address] Performed By: #### L [id number] ####[facility] LABIA [id number] [place] [address] [place] [facility] Prostate specific Ag [Mass/Vol] 0.23 ng/mL Normal <2.60 [facility] Comment on above: Order Comment: Speci men Type: BLOOD SPECIMENOrdering Facility: [facility] Address: [address] [place] [address] Result Comment: Tota l PSA test methodology used is the Electrochemiluminescence Immunoassay by [employer]. Total PSA values by differing methodologies cannot be interchanged. Performed By: #### 2 857-1 ####[facility] LABCLIA [id number] [facility] [address] [place] Prot SerPl-mCncon 01-21-2024 Protein [Mass/Vol] 6.2 g/dL Low 6.3-8.0 [facility] Comment on above: Order Comment: Speci men Type: BLOOD SPECIMEN [facility] Address: [address] [place] [address] Performed By: #### I [facility] #### [facility] CLIA [id number] [address] [place], [place] [address] [address] [place] CHEMISTRYOrdered By: SYSTEM [...] reviewed by ts . PROF CHEM 8 ([facility])on Anion gap [Moles/Vol] 14.0 mmol/L Normal [facility] Comment on above: Performed By: #### B MP ####[facility] [id number] [address]Dr. Trevor Nichols Calcium [Mass/Vol] 8.8 mg/dL Normal 8.5-10.1 [facility] Comment on above: Performed By: #### B MP ####[facility] [address] [address]Dr. Trevor Nichols Chloride [Moles/Vol] 104 mmol/L Normal 98-[address] [facility] Comment on above: Performed By: #### B MP ####[facility] [address] [address]Dr. Trevor Nichols CO2 [Moles/Vol] 26.0 mmol/L Normal 21.0-32.[address] [facility] Comment on above: Performed By: #### B MP ####[facility] [address] [place] [address] [address]Dr. Trevor Nichols Creatinine [Mass/Vol] 1.49 mg/dL Critically high 0.70-1.[address] [facility] Comment on above: Performed By: #### B MP ####[facility] [address] [place] [address]Dr. Trevor Nichols EGFR-AF SPANISH 56 mL/min/1.73m2 Critically low >=60 [facility] Comment on above: Performed By: #### B MP ####[facility] [address] [place] [address]Dr. Trevor Nichols EGFR-NON AF SPANISH 46 mL/min/1.73m2 Critically low >=60 [facility] Comment on above: Performed By: #### B MP ####[facility] [address] [place] [address]Dr. Trevor Nichols Glucose [Mass/Vol] 115 mg/dL Critically high 74-106 [facility] Comment on above: Performed By: #### B MP ####[facility] [address] [place] [address]Dr. Trevor Nichols Potassium [Moles/Vol] 4.0 mmol/L Normal 3.5-5.1 [facility] Comment on above: Performed By: #### B MP ####[facility] [address] [place] [address]Dr. Trevor Nichols Sodium [Moles/Vol] 140 mmol/L Normal 136-145 [facility] Comment on above: Performed By: #### B MP ####[facility] [address] [place] [address]Dr. Trevor Nichols Urea nitrogen [Mass/Vol] 22.0 mg/dL Critically high 7.0-18.0 [facility] Comment on above: Performed By: #### B MP ####[facility] [address] [place] [address]Dr. Trevor Nichols Urea nitrogen/Creatinine [Mass ratio] 14.8 mg/mg Normal [facility] Comment on above: Performed By: #### B MP ####[facility] [address] [place] [address]Dr. Trevor Nichols NM STRESS/REST MULTIon 04-16 NM STRESS/REST MULTI Patient: JANNETH JUAREZ Exam Date: 04/16/2022 : 1945 Gender:M Ordering : DR DANIELLA EASTON M.D. Admission #: [id number] Family : DR WILL SHERWOOD . Order #: [id number] CLICK HERE TO VIEW EXAM RADIOLOGY REPORT [...] Beatty MD on 04/16/2022 at 10:23 Normal [facility] ECHOCARDIO M/2D COMPLETEon 0 02-19-2022 ECHOCARDIO M/2D COMPLETE Patient: CHIKI JUAREZ Exam Date: 02/19/2022 : 1945 Gender:M Ordering : [employer] Admission #: [id number] Family : DR WILL SHERWOOD . Order #: [id number] CLICK HERE TO VIEW EXAM ECHOCARDIOGRAM REPORT [...] M.D. on 02/19/2022 at 19:[address] [facility] LIPID PROFILEon 02-10-2022 CHOL-HDL RATIO NORM SEE BELOW Normal [facility] Comment on above: Result Comment: 3.3 - 4.4 LOW RISK 4.4 - 7.1 AVERAGE RISK 7.1 - 11.0 MODERATE RISK >11.0 HIGH RISK Performed By: #### L IPID #### [facility] [address] [place] [address] Dr. Trevor Nichols Cholesterol [Mass/Vol] 171 mg/dL Normal <=200 [facility] Comment on above: Performed By: #### L IPID #### [facility] [address] [place] [address] Dr. Trevor Nichols Cholesterol in HDL [Mass/Vol] 40 mg/dL Normal 40-60 [facility] Comment on above: Performed By: #### L IPID #### [facility] [address] [place] [address] Dr. Trevor Nichols Cholesterol in LDL [Mass/Vol] 114.0 mg/dL Normal [facility] Comment on above: Performed By: #### L IPID #### [facility] [address] [place] [address] Dr. Trevor Nichols Cholesterol.total/Ch olesterol in HDL [Mass ratio] 4.3 {ratio} Normal [facility] Comment on above: Performed By: #### L IPID #### [facility] [address] [place] [address] Dr. Trevor Nichols HDL NORMAL > or = 60 mg/dl - LO W CARDIOVASCULAR RISK <40 mg/dl - HIGH CARDIOVASCULAR RISK Normal [facility] Comment on above: Performed By: #### L IPID #### [facility] [address] [place] [address] Dr. Trevor Nichols LDL CALC NORMAL SEE BELOW Normal [facility] Comment on above: Result Comment: <100 mg/dl OPTIMAL 100 - 129 mg/dl NEAR OR ABOVE OPTIMAL 130 - 159 mg/dl BORDERLINE HIGH 160 - 189 mg/dl HIGH >190 mg/dl VERY HIGH Performed By: #### L IPID #### [facility] [address] [place] [address] Dr. Trevor Nichols Triglyceride [Mass/Vol] 85 mg/dL Normal <=150 [facility] Comment on above: Performed By: #### L IPID #### [facility] [address] [place] [address] Dr. Trevor Nichols VLDL CALC 17.0 mg/dL Normal [facility] Comment on above: Performed By: #### L IPID #### [facility] [address] [place] [address] Dr. Trevor Nichols BNPon 02-05-2022 Natriuretic peptide B (Bld) [Mass/Vol] 231.0 pg/mL Normal <=900.[address] [facility] Comment on above: Performed By: #### H STROPN, BNP, BMP #### [facility] [address] [place] [address] Dr. Trevor Nichols CBC W MANUAL DIFFon 02-06-20 ANISOCYTOSIS 1+ Normal [facility] Comment on above: Performed By: #### C JOBY #### [facility] [address] [place] [address] Dr. Trevor Nichols ATYPICAL LYMPH # Normal [facility] Comment on above: Performed By: #### C JOBY #### [facility] [address] [place] [address] Dr. Trevor Nichols ATYPICAL LYMPH % Normal [facility] Comment on above: Performed By: #### C JOBY #### [facility] [address] [place] [address] Dr. Trevor Nichols BAND # 0.3 103/ul Normal 0.0-0.3 [facility] Comment on above: Performed By: #### C JOBY #### [facility] [address] [place] [address] Dr. Trevor Nichols BAND % 6 % Critically high 0-[address] [facility] Comment on above: Performed By: #### C JOBY #### [facility] [address] [place] [address] Dr. Trevor Nichols BASOM # 0.00 103/ul Normal 0.00-0.[address] [facility] Comment on above: Performed By: #### C JOBY #### [facility] [address] [place] [address] Dr. Trevor Nichols BASOM % 0.0 % Critically low 0.2-2.[address] [facility] Comment on above: Performed By: #### C JOBY #### [facility] [address] [place] [address] Dr. Trevor Nichols BLAST # Normal [facility] Comment on above: Performed By: #### C BCNADIA #### [facility] [address] [place] [address] Dr. Trevor Nichols BLAST % Normal [facility] Comment on above: Performed By: #### C BCNADIA #### [facility] [address] [place] [address] Dr. Trevor Nichols CORRECTED WBC Normal 4.0-11.0 [facility] Comment on above: Performed By: #### C JOBY #### [facility] [address] [place] [address] Dr. Trevor Nichols EOS # 0.04 103/ul Normal 0.00-0.70 [facility] Comment on above: Performed By: #### C JOBY #### [facility] [address] [place] [address] Dr. Trevor Nichols EOS% 1.0 % Normal 0.9-7.0 [facility] Comment on above: Performed By: #### C JBOY #### [facility] [address] [place] [address] Dr. Trevor Nichols HCT 36.4 % Critically low 42.0-54.0 [facility] Comment on above: Performed By: #### C JOBY #### [facility] [address] [place] [address] Dr. Trevor Nichols HGB 11.4 g/dl Critically low 14.0-18.0 [facility] Comment on above: Performed By: #### C JOBY #### [facility] [address] [place] [address] Dr. Trevor Nichols HYPOCHROMASIA SLIGHT Normal [facility] Comment on above: Performed By: #### C JOBY #### [facility] [address] [place] [address] Dr. Trevor Nichols LYMPHM # 1.19 103/ul Critically low 1.20-3.80 [facility] Comment on above: Performed By: #### C JOBY #### [facility] [address] [address] [address] Trevor Nichols LYMPHM% 27.0 % Normal 20.5-60.0 [facility] Comment on above: Performed By: #### C JOBY #### [facility] [address] [place] [address] Dr. Trevor Nichols MCH 32.5 pg Normal 25.9-34.0 [facility] Comment on above: Performed By: #### C JOBY #### [facility] [address] [address] [address] Trevor Nichols MCHC 31.3 g/dl Normal 29.9-35.[address] [facility] Comment on above: Performed By: #### C JOBY #### [facility] [address] [place] [address] Dr. Trevor Nichols MCV 103.7 fL Critically high 80.0-94.0 [facility] Comment on above: Performed By: #### C JOBY #### [facility] [address] [place] [address] Dr. Trevor Nichols METAMYELOCYTE # Normal [facility] Comment on above: Performed By: #### C JOBY #### [facility] [address] [place] [address] Dr. Trevor Nichols METAMYELOCYTE % Normal [facility] Comment on above: Performed By: #### C JOBY #### [facility] [address] [place] [address] Dr. Trevor Nichols MONOM# 1.28 103/ul Critically high 0.30-0.80 [facility] Comment on above: Performed By: #### C JOBY #### [facility] [address] [place] [address] Dr. Trevor Nichols MONOM% 29.0 % Critically high 1.7-12.0 [facility] Comment on above: Performed By: #### C JOBY #### [facility] [address] [place] [address] Dr. Trevor Nichols MPV 10.5 fL Normal 9.5-13.5 [facility] Comment on above: Performed By: #### C BCMAN #### [facility] [address] [address] [address] Trevor Nichols MYELOCYTE # Normal [facility] Comment on above: Performed By: #### C BCNADIA #### [facility] [address] [place] [address] Dr. Trevor Nichols MYELOCYTE % Normal [facility] Comment on above: Performed By: #### C BCNADIA #### [facility] [address] [place] [address] Dr. Trevor Nichols NRBC Normal [facility] Comment on above: Performed By: #### C JOBY #### [facility] [address] [place] [address] Dr. Trevor Nichols PLT 161 103/ul Normal 150-450 [facility] Comment on above: Performed By: #### C JOBY #### [facility] [address] [place] [address] Dr. Trevor Nichols RBC 3.51 106/ul Critically low 4.70-6.10 [facility] Comment on above: Performed By: #### C JOBY #### [facility] [address] [place] [address] Dr. Trevor Nichols RDW 16.0 % Critically high 11.0-15.0 [facility] Comment on above: Performed By: #### C BCNADIA #### [facility] [address] [place] [address] Dr. Trevor Nichols SEG # 1.63 103/ul Normal 1.40-6.50 [facility] Comment on above: Performed By: #### C BCNADIA #### [facility] [address] [place] [address] Dr. Trevor Nichols SEG % 37.0 % Critically low 43.0-75.0 [facility] Comment on above: Performed By: #### C BCNADIA #### [facility] [address] [place] [address] Dr. Trevor Nichols WBC 4.4 103/ul Normal 4.0-11.0 [facility] Comment on above: Performed By: #### C BCMAN #### [facility] [address] [address] [address] Trevor Nichols PROF 14(COMP METB)on 022 Albumin [Mass/Vol] 3.4 g/dL Normal 3.4-5.0 [facility] Comment on above: Performed By: #### H STROPN, BNP, BMP #### [facility] [address] [address] [address] Trevor Nichols Albumin/Globulin [Mass ratio] 0.9 {ratio} Normal [facility] Comment on above: Performed By: #### H STROPN, BNP, BMP #### [facility] [address] [place] [address] Dr. Trevor Nichols ALP [Catalytic activity/Vol] 99 U/L Normal 46-116 [facility] Comment on above: Performed By: #### H STROPN, BNP, BMP #### [facility] [address] [address] [address] Trevor Nichols ALT [Catalytic activity/Vol] 18 U/L Normal 16-[address] [facility] Comment on above: Performed By: #### H STROPN, BNP, BMP #### [facility] [address] [place] [address] Dr. Trevor Nichols Anion gap [Moles/Vol] 13.5 mmol/L Normal [facility] Comment on above: Performed By: #### H STROPN, BNP, BMP #### [facility] [address] [address] [address] Trevor Nichols AST [Catalytic activity/Vol] 10 U/L Critically low 15-[address] [facility] Comment on above: Performed By: #### H STROPN, BNP, BMP #### [facility] [address] [place] [address] Dr. Trevor Nichols Bilirubin [Mass/Vol] 0.5 mg/dL Normal 0.2-1.0 [facility] Comment on above: Performed By: #### H STROPN, BNP, BMP #### [facility] [address] [place] [address] Dr. Trevor Nichols Calcium [Mass/Vol] 8.8 mg/dL Normal 8.5-10.[address] [facility] Comment on above: Performed By: #### H STROPN, BNP, BMP #### [facility] [address] [address] [address] Trevor Nichols Chloride [Moles/Vol] 106 mmol/L Normal 98-[address] [facility] Comment on above: Performed By: #### H STROPN, BNP, BMP #### [facility] [address] [address] [address] Trevor Nichols CO2 [Moles/Vol] 24.3 mmol/L Normal 21.0-32.[address] [facility] Comment on above: Performed By: #### H STROPN, BNP, BMP #### [facility] [address] [place] [address] Dr. Trevor Nichols Creatinine [Mass/Vol] 1.35 mg/dL Critically high 0.70-1.30 [facility] Comment on above: Performed By: #### H STROPN, BNP, BMP #### [facility] [address] [place] [address] Dr. Trevor Nichols EGFR-AF SPANISH >60 Normal >=60 [facility] Comment on above: Performed By: #### H STROPN, BNP, BMP #### [facility] [address] [place] [address] Dr. Trevor Nichols EGFR-NON AF SPANISH 52 mL/min/1.73m2 Critically low >=[address] [facility] Comment on above: Performed By: #### H STROPN, BNP, BMP #### [facility] [address] [address] [address] Trevor Nichols Globulin (S) [Mass/Vol] 3.8 g/dL Normal [facility] Comment on above: Performed By: #### H STROPN, BNP, BMP #### [facility] [address] [address] [address] Trevor Nichols Glucose [Mass/Vol] 103 mg/dL Normal 74-[address] [facility] Comment on above: Performed By: #### H STROPN, BNP, BMP #### [facility] [address] [address] [address] Trevor Nichols Potassium [Moles/Vol] 3.8 mmol/L Normal 3.5-5.1 [facility] Comment on above: Performed By: #### H STROPN, BNP, BMP #### [facility] [address] [place] [address] Dr. Trevor Nichols Protein [Mass/Vol] 7.2 g/dL Normal 6.4-8.2 [facility] Comment on above: Performed By: #### H STROPN, BNP, BMP #### [facility] [address] [place] [address] Dr. Trevor Nichols Sodium [Moles/Vol] 140 mmol/L Normal 136-145 [facility] Comment on above: Performed By: #### H STROPN, BNP, BMP #### [facility] [address] [place] [address] Dr. Trevor Nichols Urea nitrogen [Mass/Vol] 22.0 mg/dL Critically high 7.0-18.0 [facility] Comment on above: Performed By: #### H STROPN, BNP, BMP #### [facility] [address] [place] [address] Dr. Trevor Nichols Urea nitrogen/Creatinine [Mass ratio] 16.3 mg/mg Normal [facility] Comment on above: Performed By: #### H STROPN, BNP, BMP #### [facility] [address] [place] [address] Dr. Trevor Nichols TSHon 02-05-2022 TSH 3.360 uIU/mL Normal 0.358-3.740 [facility] Comment on above: Performed By: #### H STROPN, BNP, BMP #### [facility] [address] [place] [address] Dr. Trevor Nichols XR CHEST 2 Von [...] by: ALLAN FLOREZ Date: 2022-02-05 17:03 Normal [facility] XR BONE SURVEYon 09-25-2021 XR [...] by: SHAY BERNSTEIN Date: 2021-09-25 07:30 Normal [facility] PROTEIN ELECTROPHERESISon Albumin [Mass/Vol] 3.2 g/dL Normal 2.9-4.[address] [facility] Comment on above: Performed By: #### P RTELEC ####[facility] [address] [address]Dr. Trevor Nichols Albumin/Globulin [Mass ratio] 1.1 {ratio} Normal 0.7-1.[address] [facility] Comment on above: Performed By: #### P RTELEC ####[facility] [address] [address]Dr. Trevor Nichols Ojzbj-0-Xhevdvrl 0.3 g/dL Normal 0.0-0.[address] [facility] Comment on above: Performed By: #### P RTELEC ####[facility] [address] [place], [place] [address]Dr. Trevor Nichols Aoyma-8-Faqjmbxt 0.8 g/dL Normal 0.4-1.[address] [facility] Comment on above: Performed By: #### P RTELEC ####[facility] [address] [place], [place] [address]Dr. Trevor Nichols Beta Globulin 1.0 g/dL Normal 0.7-1.[address] [facility] Comment on above: Performed By: #### P RTELEC ####[facility] [address] [place], [place] [address]Dr. Trevor Nichols Gamma Globulin 0.8 g/dL Normal 0.4-1.[address] [facility] Comment on above: Performed By: #### P RTELEC ####[facility] [address] [address]Dr. Vivilan Nichols Globulin (S) [Mass/Vol] 2.9 g/dL Normal 2.2-3.[address] [facility] Comment on above: Performed By: #### P RTELEC ####[facility] [address] [address]Dr. Vivilan Nichols M-Jorge 0.1 g/dL Critically high Not Observed [facility] Comment on above: Performed By: #### P RTELEC ####[facility] [address] [address]DrJeffery Nichols PDF . Normal [facility] Comment on above: Performed By: #### P RTELEC ####[facility] [address] [address]Dr. Trevor Nichols Please note: Comment Normal [facility] Comment on above: Result Comment: Prot ein electrophoresis scan will follow via computer, mail, or valve lapper delivery. Performed By: #### P RTELEC ####[facility] [address] [address]Dr. Trevor Nichols Protein [Mass/Vol] 6.1 g/dL Normal 6.0-8.[address] [facility] Comment on above: Performed By: #### P RTELEC ####[facility] [address] [address]DrJeffery Nichols PROF CHEM 8 (BAS METB)on Anion gap [Moles/Vol] 16.3 mmol/L Normal [facility] Comment on above: Performed By: #### H STROPN, BNP, BMP #### [facility] [address] [address] [address] Trevor Nichols Calcium [Mass/Vol] 9.1 mg/dL Normal 8.4-10.[address] [facility] Comment on above: Performed By: #### H STROPN, BNP, BMP #### [facility] [address] [address] [address] Trevor Nichols Chloride [Moles/Vol] 104 mmol/L Normal 98-[address] [facility] Comment on above: Performed By: #### H STROPN, BNP, BMP #### [facility] [address] [address] [address] Trevor Nichols CO2 [Moles/Vol] 23.3 mmol/L Normal 22.0-30.[address] [facility] Comment on above: Performed By: #### H STROPN, BNP, BMP #### [facility] [address] [address] [address] Trevor Nichols Creatinine [Mass/Vol] 1.28 mg/dL Critically high 0.66-1.25 [facility] Comment on above: Performed By: #### H STROPN, BNP, BMP #### [facility] [address] [address] [address] Trevor Nichols EGFR-AF SPANISH >60 Normal >=60 [facility] Comment on above: Performed By: #### H STROPN, BNP, BMP #### [facility] [address] [place] [address] Dr. Trevor Nichols EGFR-NON AF SPANISH 55 mL/min/1.73m2 Critically low >=60 [facility] Comment on above: Performed By: #### H STROPN, BNP, BMP #### [facility] [address] [place] [address] Dr. Trevor Nichols Glucose [Mass/Vol] 98 mg/dL Normal 74-106 [facility] Comment on above: Performed By: #### H STROPN, BNP, BMP #### [facility] [address] [place] [address] Dr. Trevor Nichols Potassium [Moles/Vol] 3.6 mmol/L Normal 3.4-5.0 [facility] Comment on above: Performed By: #### H STROPN, BNP, BMP #### [facility] [address] [place] [address] Dr. Trevor Nichols Sodium [Moles/Vol] 140 mmol/L Normal 137-145 [facility] Comment on above: Performed By: #### H STROPN, BNP, BMP #### [facility] [address] [place] [address] Dr. Trevor Nichols Urea nitrogen [Mass/Vol] 25.0 mg/dL Critically high 9.0-20.0 [facility] Comment on above: Performed By: #### H STROPN, BNP, BMP #### [facility] [address] [place] [address] Dr. Trevor Nichols Urea nitrogen/Creatinine [Mass ratio] 19.5 mg/mg Normal [facility] Comment on above: Performed By: #### H STROPN, BNP, BMP #### [facility] [address] [place] [address] Dr. Trevor Nichols XR MODIFIED BARIUM SWALLOWon [...] by: SHAY BERNSTEIN Date: 2021-09-05 10:40 Normal [facility] CULTURE SPUTUMon 08-01-2021 CULTURE SPUTUM [...] Trimethoprim/Sulfamethoxaz ole <=[address] S F Normal [facility] Comment on above: Performed By: #### H STROPN, BNP, BMP #### [facility] [address] [place], [place] [address] Dr. Trevro Nichols SPUTUM GRAM STAINon 07-30-20 21 COMMENTS Normal [facility] Comment on above: Performed By: #### S PUTGS ####[facility] [address] [place], [place] [address]BcDr. Trevor Nichols DIPHTHEROIDS Normal [facility] Comment on above: Performed By: #### S PUTGS ####[facility] [address] [address]Dr. Trevor Nichols EPITHELIALS >[address] [facility] Comment on above: Performed By: #### S PUTGS ####[facility] [address] [address]Dr. Trevor Nichols FUNGAL ELEMENTS Normal [facility] Comment on above: Performed By: #### S PUTGS ####[facility] [address] [address]Dr. Trevor Nichols GRAM NEG BACILLI RARE Normal [facility] Comment on above: Performed By: #### S PUTGS ####[facility] [address] [place], [place] [address]Dr. Trevor Nichols GRAM NEG DIPPLOCOCCI Normal [facility] Comment on above: Performed By: #### S PUTGS ####[facility] [address] [place], [place] [address]Dr. Trevor Nichols GRAM POS BACILLI MANY Normal [facility] Comment on above: Performed By: #### S PUTGS ####[facility] [address] [place], [place] [address]Dr. Trevor Nichols GRAM POSITIVE COCCI MANY Normal [facility] Comment on above: Performed By: #### S PUTGS ####[facility] [address] [place], [place] [address]Dr. Trevor Nichols WBC (Bld) [#/Vol] 10*3/uL Normal [facility] Comment on above: Performed By: #### S PUTGS ####[facility] [address] [place], [place] [address]Dr. Trevor Nichols ECHOCARDIO M/2D COMPLETEon 1 09-24-2020 ECHOCARDIO M/2D COMPLETE Patient: CHIKI JUAREZ Exam Date: 07/24/2021 : 1945 Gender:M Ordering : [employer] Admission #: [id number] Family : DR WILL SHERWOOD . Order #: [id number] CLICK HERE TO VIEW EXAM ECHOCARDIOGRAM REPORT [...] M.D. on 07/24/2021 at 20:[address] [facility] CBC W MANUAL DIFFon -22-20 21 ATYPICAL LYMPH # Normal [facility] Comment on above: Performed By: #### H STROPN, BNP, BMP #### [facility] [address] [place] [address] Dr. Trevor Nichols ATYPICAL LYMPH % Normal [facility] Comment on above: Performed By: #### H STROPN, BNP, BMP #### [facility] [address] [place] [address] Dr. Trevor Nichols BAND # 0.1 103/ul Normal 0.0-0.3 [facility] Comment on above: Performed By: #### H STROPN, BNP, BMP #### [facility] [address] [place] [address] Dr. Trevor Nichols BAND % 2 % Normal 0-5 [facility] Comment on above: Performed By: #### H STROPN, BNP, BMP #### [facility] [address] [place] [address] Dr. Trevor Nichols BASOM # 0.00 103/ul Normal 0.00-0.10 [facility] Comment on above: Performed By: #### H STROPN, BNP, BMP #### [facility] [address] [place] [address] Dr. Trevor Nichols BASOM % 0.0 % Critically low 0.2-2.0 [facility] Comment on above: Performed By: #### H STROPN, BNP, BMP #### [facility] [address] [place] [address] Dr. Trevor Nichols BLAST # Normal [facility] Comment on above: Performed By: #### H STROPN, BNP, BMP #### [facility] [address] [place] [address] Dr. Trevor Nichols BLAST % Normal [facility] Comment on above: Performed By: #### H STROPN, BNP, BMP #### [facility] [address] [place] [address] Dr. Trevor Nichols CORRECTED WBC Normal 4.0-11.0 [facility] Comment on above: Performed By: #### H STROPN, BNP, BMP #### [facility] [address] [place] [address] Dr. Trevor Nichols EOS # 0.06 103/ul Normal 0.00-0.70 [facility] Comment on above: Performed By: #### H STROPN, BNP, BMP #### [facility] [address] [place], [place] [id number] Dr. Trevor Nichols EOS% 1.0 % Normal 0.9-7.0 [facility] Comment on above: Performed By: #### H STROPN, BNP, BMP #### [facility] [address] [address] [address] Trevor Nichols HCT 31.6 % Critically low 42.0-54.0 [facility] Comment on above: Performed By: #### H STROPN, BNP, BMP #### [facility] [address] [address] [address] Trevor Nichols HGB 9.7 g/dl Critically low 14.0-18.0 [facility] Comment on above: Performed By: #### H STROPN, BNP, BMP #### [facility] [address] [place] [address] Dr. Trevor Nichols LYMPHM # 0.46 103/ul Critically low 1.20-3.80 [facility] Comment on above: Performed By: #### H STROPN, BNP, BMP #### [facility] [address] [place] [address] Dr. Trevor Nichols LYMPHM% 8.0 % Critically low 20.5-60.0 [facility] Comment on above: Performed By: #### H STROPN, BNP, BMP #### [facility] [address] [place] [address] Dr. Trveor Nichols MACROCYTOSIS 1+ Normal [facility] Comment on above: Performed By: #### H STROPN, BNP, BMP #### [facility] [address] [place] [address] Dr. Trevor Nichols MCH 33.6 pg Normal 25.9-34.[address] [facility] Comment on above: Performed By: #### H STROPN, BNP, BMP #### [facility] [address] [place] [address] Dr. Trevor Nichols MCHC 30.7 g/dl Normal 29.9-35.[address] [facility] Comment on above: Performed By: #### H STROPN, BNP, BMP #### [facility] [address] [place] [address] Dr. Trevor Nichols MCV 109.3 fL Critically high 80.0-94.0 [facility] Comment on above: Performed By: #### H STROPN, BNP, BMP #### [facility] [address] [address] [address] Trevor Nichols METAMYELOCYTE # 0.1 103/ul Normal [facility] Comment on above: Performed By: #### H STROPN, BNP, BMP #### [facility] [address] [address] [address] Trevor Nichols METAMYELOCYTE % 2 % Normal [facility] Comment on above: Performed By: #### H STROPN, BNP, BMP #### [facility] [address] [place] [address] Dr. Trevor Nichols MONOM# 2.22 103/ul Critically high 0.30-0.80 [facility] Comment on above: Performed By: #### H STROPN, BNP, BMP #### [facility] [address] [place] [address] Dr. Trevor Nichols MONOM% 39.0 % Critically high 1.7-12.0 [facility] Comment on above: Performed By: #### H STROPN, BNP, BMP #### [facility] [address] [place] [address] Dr. Trevor Nichols MPV 9.4 fL Critically low 9.5-13.5 [facility] Comment on above: Performed By: #### H STROPN, BNP, BMP #### [facility] [address] [place] [address] Dr. Trevor Nichols MYELOCYTE # 0.3 103/ul Normal [facility] Comment on above: Performed By: #### H STROPN, BNP, BMP #### [facility] [address] [place] [address] Dr. Trevor Nichols MYELOCYTE % 6 % Normal [facility] Comment on above: Performed By: #### H STROPN, BNP, BMP #### [facility] [address] [place] [address] Dr. Trevor Nichols NRBC Normal [facility] Comment on above: Performed By: #### H STROPN, BNP, BMP #### [facility] [address] [address] [address] Trevor Nichols PLT 202 103/ul Normal 150-450 [facility] Comment on above: Performed By: #### H STROPN, BNP, BMP #### [facility] [address] [place], [place] [address] Dr. Trevor Nichols RBC 2.89 106/ul Critically low 4.70-6.10 [facility] Comment on above: Performed By: #### H STROPN, BNP, BMP #### [facility] [address] [address] [address] Trevor Nichols RDW 15.4 % Critically high 11.0-15.0 [facility] Comment on above: Performed By: #### H STROPN, BNP, BMP #### [facility] [address] [address] [address] Trevor Nichols SEG # 2.39 103/ul Normal 1.40-6.50 [facility] Comment on above: Performed By: #### H STROPN, BNP, BMP #### [facility] [address] [address] [address] Trevor Nichols SEG % 42.0 % Critically low 43.0-75.0 [facility] Comment on above: Performed By: #### H STROPN, BNP, BMP #### [facility] [address] [address] [address] Trevor Nichols WBC 5.7 103/ul Normal 4.0-11.0 [facility] Comment on above: Performed By: #### H STROPN, BNP, BMP #### [facility] [address] [address] [address] Trevor Nichols PROF CHEM 8 (BAS METB)on Anion gap [Moles/Vol] 13.1 mmol/L Normal [facility] Comment on above: Performed By: #### B MP ####[facility] [address] [address]Dr. Trevor Nichols Calcium [Mass/Vol] 8.8 mg/dL Normal 8.4-10.[address] [facility] Comment on above: Performed By: #### B MP ####[facility] [address] [address]Dr. Trevor Simone Chloride [Moles/Vol] 104 mmol/L Normal 98-[address] [facility] Comment on above: Performed By: #### B MP ####[facility] [address] [address]Dr. Vivifrancie Simone CO2 [Moles/Vol] 24.1 mmol/L Normal 22.0-30.[address] [facility] Comment on above: Performed By: #### B MP ####[facility] [address] [place], [place] [address]Dr. Vivifrancie Simone Creatinine [Mass/Vol] 1.26 mg/dL Critically high 0.66-1.[address] [facility] Comment on above: Performed By: #### B MP ####[facility] [address] [place], [place] [address]Dr. Vivifrancie Simone EGFR-AF SPANISH >60 Normal >=[address] [facility] Comment on above: Performed By: #### B MP ####[facility] [address] [place], [place] [address]Dr. Vivifrancie Simone EGFR-NON AF SPANISH 56 mL/min/1.73m2 Critically low >=[address] [facility] Comment on above: Performed By: #### B MP ####[facility] [address] [place], [place] [address]Dr. Trevor Nichols Glucose [Mass/Vol] 98 mg/dL Normal 74-[address] [facility] Comment on above: Performed By: #### B MP ####[facility] [address] [place], [place] [address]Dr. Trevor Nichols Potassium [Moles/Vol] 4.2 mmol/L Normal 3.4-5.[address] [facility] Comment on above: Performed By: #### B MP ####[facility] [address] [place], [place] [address]Dr. Trevor Nichols Sodium [Moles/Vol] 137 mmol/L Normal 137-[address] [facility] Comment on above: Performed By: #### B MP ####[facility] [address] [address]Dr. Trevor Simone Urea nitrogen [Mass/Vol] 20.0 mg/dL Normal 9.0-20.0 [facility] Comment on above: Performed By: #### B MP ####[facility] [address] [place], [place] [address]Dr. Trevor Nichols Urea nitrogen/Creatinine [Mass ratio] 15.9 mg/mg Normal [facility] Comment on above: Performed By: #### B MP ####[facility] [address] [place], [place] [address]Dr. Vivifrancie Nichols CBC AUTO DIFFon 05-16-2021 BASO # 0.0 103/ul Normal 0.0-0.1 [facility] Comment on above: Performed By: #### C BC ####[facility] [address] [place], [place] [address]Dr. Trevor Nichols Basophils/100 WBC (Bld) 0.2 % Normal 0.2-2.0 [facility] Comment on above: Performed By: #### C BC ####[facility] [address] [place], [place] [address]Dr. Trevor Nichols EO # 0.0 103/ul Normal 0.0-0.7 [facility] Comment on above: Performed By: #### C BC ####[facility] [address] [place], [place] [address]Dr. Trevor Nichols Eosinophils/100 WBC (Bld) 0.0 % Critically low 0.9-7.[address] [facility] Comment on above: Performed By: #### C BC ####[facility] [address] [place], [place] [address]Dr. Trevor Nichols Erythrocyte distribution width (RBC) [Ratio] 15.1 % Critically high 11.0-15.0 [facility] Comment on above: Performed By: #### C BC ####[facility] [address] [place], [place] [address]Dr. Trevor Nichols Hematocrit (Bld) [Volume fraction] 32.9 % Critically low 42.0-54.0 [facility] Comment on above: Performed By: #### C BC ####[facility] [address] [address]DrJeffery Nichols Hemoglobin (Bld) [Mass/Vol] 10.5 g/dL Critically low 14.0-18.0 [facility] Comment on above: Performed By: #### C BC ####[facility] [address] [place], [place] [address]DrJeffery Nichols IG # 0.29 10e3/ul Critically high 0.00-0.03 [facility] Comment on above: Performed By: #### C BC ####[facility] [address] [place], [place] [address]DrJeffery Nichols IG % 6.5 % Critically high 0.0-0.5 [facility] Comment on above: Performed By: #### C BC ####[facility] [address]bt[address] [place], [place] [address]DrJeffery Nichols LYMPH # 0.2 103/ul Critically low 1.2-3.8 [facility] Comment on above: Performed By: #### C BC ####[facility] [address] [place], [place] [address]DrJeffery Nichols Lymphocytes/100 WBC (Bld) 5.4 % Critically low 20.5-60.0 [facility] Comment on above: Performed By: #### C BC ####[facility] [address] [place], [place] [address]DrJeffery Nichols MANUAL DIFF REQ NO Normal [facility] Comment on above: Performed By: #### C BC ####[facility] [address] [place], [place] [address]DrJeffery Nichols MCH (RBC) [Entitic mass] 33.8 pg Normal 25.9-34.0 [facility] Comment on above: Performed By: #### C BC ####[facility] [address] [place], [place] [address]DrJeffery Nichols MCHC (RBC) [Mass/Vol] 31.9 g/dL Normal 29.9-35.2 [facility] Comment on above: Performed By: #### C BC ####[facility] [address] [address]DrJeffery Nichols MCV (RBC) [Entitic vol] 105.8 fL Critically high 80.0-94.0 [facility] Comment on above: Performed By: #### C BC ####[facility] [address] [place], [place] [address]DrJeffery Nichols MONO # 0.3 103/ul Normal 0.3-0.[address] [facility] Comment on above: Performed By: #### C BC ####[facility] [address] [place], [place] [address]DrJeffery Nichols Monocytes/100 WBC (Bld) 7.6 % Normal 1.7-12.0 [facility] Comment on above: Performed By: #### C BC ####[facility] [address] [place], [place] [address]DrJeffery Nichols NEUT # 3.6 103/ul Normal 1.4-6.[address] [facility] Comment on above: Performed By: #### C BC ####[facility] [address] [place], [place] [address]DrJeffery Nichols Neutrophils/100 WBC (Bld) 80.3 % Critically high 43.0-75.0 [facility] Comment on above: Performed By: #### C BC ####[facility] [address] [place], [place] [address]DrJeffery Nichols Platelet mean volume (Bld) [Entitic vol] 10.2 fL Normal 9.5-13.[address] [facility] Comment on above: Performed By: #### C BC ####[facility] [address] [place], [place] [address]DrJeffery Nichols PLT 192 103/ul Normal 150-[address] [facility] Comment on above: Performed By: #### C BC ####[facility] [address] [place], [place] [address]DrJeffery Nichols RBC 3.11 106/ul Critically low 4.70-6.[address] [facility] Comment on above: Performed By: #### C BC ####[facility] [address] [place], [place] [address]LfJeffery Nichols WBC 4.5 103/ul Normal 4.0-11.0 [facility] Comment on above: Performed By: #### C BC ####[facility] [address] [place], [place] [address] CT STROKE HEAD WOon 05-16-20 21 [...] SHAY BERNSTEIN Date: 2021-05-16 14:[address] [facility] CTA NECK WO W CONon 05-16-20 21 [...] left vertebral artery. Electronically authenticated by: SHAY EBRNSTEIN Date: 2021-05-16 16:[address] [facility] IRON AND TIBCon 05-16-2021 % SATURATION 16.2 % Normal [facility] Comment on above: Performed By: #### F ETIBC, B12FOL #### [facility] [address] [address] [address] Trevor Nichols Iron [Mass/Vol] 32.0 ug/dL Critically low 49.0-181.0 [facility] Comment on above: Performed By: #### F ETIBC, B12FOL #### [facility] [address] [address] [address] Trevor Nichols TIBC DIRECT 198.0 ug/dL Critically low 261.0-497.0 [facility] Comment on above: Performed By: #### F ETIBC, B12FOL #### [facility] [address] [address] [address] Trevor Nichols PROF CHEM 8 (BAS METB)on Anion gap [Moles/Vol] 14.9 mmol/L Normal [facility] Comment on above: Performed By: #### B MP #### [facility] [address] [address] [address] Trevor Nichols Calcium [Mass/Vol] 9.2 mg/dL Normal 8.4-10.2 [facility] Comment on above: Performed By: #### B MP #### [facility] [address] [address] [address] Trevor Ncihols Chloride [Moles/Vol] 105 mmol/L Normal 98-107 [facility] Comment on above: Performed By: #### B MP #### [facility] [address] [place] [address] Dr. Trevor Nichols CO2 [Moles/Vol] 21.6 mmol/L Critically low 22.0-30.0 [facility] Comment on above: Performed By: #### B MP #### [facility] [address] [place] [address] Dr. Trevor Nichols Creatinine [Mass/Vol] 1.36 mg/dL Critically high 0.66-1.25 [facility] Comment on above: Performed By: #### B MP #### [facility] [address] [place] [address] Dr. Trevor Nichols EGFR-AF SPANISH >60 Normal >=60 [facility] Comment on above: Performed By: #### B MP #### [facility] [address] [place] [address] Dr. Trevor Nichols EGFR-NON AF SPANISH 51 mL/min/1.73m2 Critically low >=60 [facility] Comment on above: Performed By: #### B MP #### [facility] [address] [address] [address] Trevor Nichols Glucose [Mass/Vol] 206 mg/dL Critically high 74-106 [facility] Comment on above: Performed By: #### B MP #### [facility] [address] [place] [address] Dr. Trevor Nichols Potassium [Moles/Vol] 4.5 mmol/L Normal 3.4-5.0 [facility] Comment on above: Performed By: #### B MP #### [facility] [address] [place] [address] Dr. Trevor Nichols Sodium [Moles/Vol] 137 mmol/L Normal 137-[address] [facility] Comment on above: Performed By: #### B MP #### [facility] [address] [place] [address] Dr. Trevor Nichols Urea nitrogen [Mass/Vol] 26.0 mg/dL Critically high 9.0-20.0 [facility] Comment on above: Performed By: #### B MP #### [facility] [address] [place] [address] Dr. Trevor Nichols Urea nitrogen/Creatinine [Mass ratio] 19.1 mg/mg Normal [facility] Comment on above: Performed By: #### B MP #### [facility] [address] [place] [address] Dr. Trevor Nichols VIT B12 AND FOLATEon 021 Cobalamin (Vitamin B12) [Mass/Vol] pg/mL Critically high 239.0-931.0 [facility] Comment on above: Performed By: #### F ETIBC, B12FOL #### [facility] [address] [place] [address] Dr. Trevor Ncihols FOLATE 15.40 ng/mL Normal >=2.76 [facility] Comment on above: Performed By: #### F ETIBC, B12FOL #### [facility] [address] [place] [address] Dr. Trevor Nichols BNPon 05-15-2021 Natriuretic peptide B (Bld) [Mass/Vol] 379.0 pg/mL Normal <=900.[address] [facility] Comment on above: Performed By: #### H STROPN, BNP, BMP #### [facility] [address] [place] [address] Dr. Trevor Nichols CBC W MANUAL DIFFon 05-15-20 21 ATYPICAL LYMPH # Normal [facility] Comment on above: Performed By: #### H STROPN, BNP, BMP #### [facility] [address] [place] [address] Dr. Trevor Nichols ATYPICAL LYMPH % Normal [facility] Comment on above: Performed By: #### H STROPN, BNP, BMP #### [facility] [address] [address] [address] Trevor Nichols BAND # 0.0 103/ul Normal 0.0-0.3 [facility] Comment on above: Performed By: #### H STROPN, BNP, BMP #### [facility] [address] [address] [address] Trevor Nichols BAND % 1 % Normal 0-5 [facility] Comment on above: Performed By: #### H STROPN, BNP, BMP #### [facility] [address] [place] [address] Dr. Trevor Nichols BASOM # 0.00 103/ul Normal 0.00-0.10 [facility] Comment on above: Performed By: #### H STROPN, BNP, BMP #### [facility] [address] [place] [address] Dr. Trevor Nichols BASOM % 0.0 % Critically low 0.2-2.0 [facility] Comment on above: Performed By: #### H STROPN, BNP, BMP #### [facility] [address] [place] [address] Dr. Trevor Nichols BLAST # Normal [facility] Comment on above: Performed By: #### H STROPN, BNP, BMP #### [facility] [address] [place] [address] Dr. Trevor Nichols BLAST % Normal [facility] Comment on above: Performed By: #### H STROPN, BNP, BMP #### [facility] [address] [place] [address] Dr. Trevor Nichols BRENDA CELLS SLIGHT Normal [facility] Comment on above: Performed By: #### H STROPN, BNP, BMP #### [facility] [address] [place] [address] Dr. Trevor Nichols CORRECTED WBC Normal 4.0-11.[address] [facility] Comment on above: Performed By: #### H STROPN, BNP, BMP #### [facility] [address] [address] [address] Trevor Nichols EOS # 0.05 103/ul Normal 0.00-0.70 [facility] Comment on above: Performed By: #### H STROPN, BNP, BMP #### [facility] [address] [address] [address] Trevor Nichols EOS% 1.0 % Normal 0.9-7.0 [facility] Comment on above: Performed By: #### H STROPN, BNP, BMP #### [facility] [address] [address] [address] Trevor Nichols HCT 32.5 % Critically low 42.0-54.0 [facility] Comment on above: Performed By: #### H STROPN, BNP, BMP #### [facility] [address] [address] [address] Trevor Nichols HGB 10.5 g/dl Critically low 14.0-18.0 [facility] Comment on above: Performed By: #### H STROPN, BNP, BMP #### [facility] [address] [address] [address] Trevor Nichols HYPOCHROMASIA 2+ Normal [facility] Comment on above: Performed By: #### H STROPN, BNP, BMP #### [facility] [address] [address] [address] Trevor Nichols LYMPHM # 1.03 103/ul Critically low 1.20-3.80 [facility] Comment on above: Performed By: #### H STROPN, BNP, BMP #### [facility] [address] [address] [address] Trevor Nichols LYMPHM% 22.0 % Normal 20.5-60.0 [facility] Comment on above: Performed By: #### H STROPN, BNP, BMP #### [facility] [address] [address] [address] Trevor Nichols MACROCYTOSIS 2+ Normal [facility] Comment on above: Performed By: #### H STROPN, BNP, BMP #### [facility] [address] [address] [address] Trevor Nichols MCH 34.5 pg Critically high 25.9-34.0 [facility] Comment on above: Performed By: #### H STROPN, BNP, BMP #### [facility] [address] [address] [address] Trevor Nichols MCHC 32.3 g/dl Normal 29.9-35.2 [facility] Comment on above: Performed By: #### H STROPN, BNP, BMP #### [facility] [address] [address] [address] Trevor Nichols MCV 106.9 fL Critically high 80.0-94.0 [facility] Comment on above: Performed By: #### H STROPN, BNP, BMP #### [facility] [address] [address] [address] Trevor Nichols METAMYELOCYTE # Normal [facility] Comment on above: Performed By: #### H STROPN, BNP, BMP #### [facility] [address] [address] [address] Trevor Nichols METAMYELOCYTE % Normal [facility] Comment on above: Performed By: #### H STROPN, BNP, BMP #### [facility] [address] [address] [address] Trevor Nichols MONOM# 1.74 103/ul Critically high 0.30-0.80 [facility] Comment on above: Performed By: #### H STROPN, BNP, BMP #### [facility] [address] [address] [address] Trevor Nichols MONOM% 37.0 % Critically high 1.7-12.0 [facility] Comment on above: Performed By: #### H STROPN, BNP, BMP #### [facility] [address] [address] [address] Trevor Nichols MPV 10.8 fL Normal 9.5-13.5 [facility] Comment on above: Performed By: #### H STROPN, BNP, BMP #### [facility] [address] [address] [address] Trevor Nichols MYELOCYTE # Normal [facility] Comment on above: Performed By: #### H STROPN, BNP, BMP #### [facility] [address] [address] [address] Trevor Nichols MYELOCYTE % Normal [facility] Comment on above: Performed By: #### H STROPN, BNP, BMP #### [facility] [address] [address] [address] Trevor Nichols NRBC Normal [facility] Comment on above: Performed By: #### H STROPN, BNP, BMP #### [facility] [address] [address] [address] Trevor Nichols PLT 222 103/ul Normal 150-450 [facility] Comment on above: Performed By: #### H STROPN, BNP, BMP #### [facility] [address] [place] [address] Dr. Trevor Nichols POIKILOCYTOSIS 2+ Normal [facility] Comment on above: Performed By: #### H STROPN, BNP, BMP #### [facility] [address] [place] [address] Dr. Trevor Nichols RBC 3.04 106/ul Critically low 4.70-6.10 [facility] Comment on above: Performed By: #### H STROPN, BNP, BMP #### [facility] [address] [place] [address] Dr. Trevor Nichols RDW 15.6 % Critically high 11.0-15.0 [facility] Comment on above: Performed By: #### H STROPN, BNP, BMP #### [facility] [address] [place] [address] Dr. Trevor Nichols SEG # 1.83 103/ul Normal 1.40-6.50 [facility] Comment on above: Performed By: #### H STROPN, BNP, BMP #### [facility] [address] [address] [address] Trevor Nichols SEG % 39.0 % Critically low 43.0-75.0 [facility] Comment on above: Performed By: #### H STROPN, BNP, BMP #### [facility] [address] [address] [address] Trevor Nichols TARGET CELLS 1+ Normal [facility] Comment on above: Performed By: #### H STROPN, BNP, BMP #### [facility] [address] [address] [address] Trevor Nichols TEAR DROP CELLS SLIGHT Normal [facility] Comment on above: Performed By: #### H STROPN, BNP, BMP #### [facility] [address] [address] [address] Trevor Nichols WBC 4.7 103/ul Normal 4.0-11.0 [facility] Comment on above: Performed By: #### H STROPN, BNP, BMP #### [facility] [address] [address] [address] Trevor Nichols CTA CHEST WO W [...] RAY SAWANT Date: 2021-05-15 11:[address] [facility] CULTURE BLOODon 05-15-2021 Microscopic examination of blood, culture Culture Observations: No growth at [address] [facility] Comment on above: Performed By: #### H CHASITY BNP, BMP #### [facility] [address] [address] [address] Trevor Nichols Covid-19 PCR (CVDTB)on 04-18 SARS-CoV-2 (COVID-19) RNA DEVIN+probe Ql (Unsp spec) Not detected Normal NOT DETECTED [facility] Comment on above: Result Comment: When diagnostic testing is negative, the possibility of a false negative should be considered in the context of a patient's recent exposures and the presence of clinical signs and symptoms consistent with SARS-CoV-2. This test is not yet approved or cleared by the [place] Food and Drug Administration (FDA). This test was developed by [employer], [place], [place]. The performance characteristics of this test were validated by [facility]. The results are not intended to be used as the sole means for clinical diagnosis or patient management decisions. The [facility] is authorized under Clinical Laboratory Improvement Amendments (CLIA) to perform high- complexity testing. Performed By: #### H CHASITY BNP, BMP #### [facility] [address] [address] [address] Trevor Nichols FREE T3on 05-15-2021 FREE T3 1.66 pg/mlL Critically low 2.77-5.[address] [facility] Comment on above: Performed By: #### T SH, FT3 ####[facility] [address] [address]DrJeffery Nichols FREE T4on 05-15-2021 Free T4 [Mass/Vol] 1.06 ng/dL Normal 0.78-2.[address] [facility] Comment on above: Performed By: #### F T4 ####[facility] [address] [address]DrJeffery Nichols LACTATE/LACTIC ACIDon 2020 Lactate [Moles/Vol] 1.2 mmol/L Normal 0.7-2.0 [facility] Comment on above: Performed By: #### L ACT ####[facility] [address] [address]Dr. Trevor Nichols Lactate [Moles/Vol] 1.5 mmol/L Normal 0.7-2.0 [facility] Comment on above: Performed By: #### L ACT ####[facility] [address] [address]Dr. Trevor Nichols PROF CHEM 8 (BAS METB)on Anion gap [Moles/Vol] 12.5 mmol/L Normal [facility] Comment on above: Performed By: #### H STROPN, BNP, BMP #### [facility] [address] [address] [address] Trevor Nichols Calcium [Mass/Vol] 8.4 mg/dL Normal 8.4-10.[address] [facility] Comment on above: Performed By: #### H STROPN, BNP, BMP #### [facility] [address] [address] [address] Trevor Nichols Chloride [Moles/Vol] 106 mmol/L Normal 98-[address] [facility] Comment on above: Performed By: #### H STROPN, BNP, BMP #### [facility] [address] [address] [address] Trevor Nichols CO2 [Moles/Vol] 24.8 mmol/L Normal 22.0-30.[address] [facility] Comment on above: Performed By: #### H STROPN, BNP, BMP #### [facility] [address] [address] [address] Trevor Nichols Creatinine [Mass/Vol] 1.37 mg/dL Critically high 0.66-1.[address] [facility] Comment on above: Performed By: #### H STROPN, BNP, BMP #### [facility] [address] [address] [address] Trevor Nichols EGFR-AF SPANISH >60 Normal >=[address] [facility] Comment on above: Performed By: #### H STROPN, BNP, BMP #### [facility] [address] [address] [address] Trevor Nichols EGFR-NON AF SPANISH 51 mL/min/1.73m2 Critically low >=60 [facility] Comment on above: Performed By: #### H STROPN, BNP, BMP #### [facility] [address] [address] [address] Trevor Nichols Glucose [Mass/Vol] 114 mg/dL Critically high 74-106 [facility] Comment on above: Performed By: #### H STROPN, BNP, BMP #### [facility] [address] [address] [address] Trevor Nichols Potassium [Moles/Vol] 4.4 mmol/L Normal 3.4-5.0 [facility] Comment on above: Performed By: #### H STROPN, BNP, BMP #### [facility] [address] [address] [address] Trevor Nichols Sodium [Moles/Vol] 139 mmol/L Normal 137-145 [facility] Comment on above: Performed By: #### H STROPN, BNP, BMP #### [facility] [address] [address] [address] Trevor Nichols Urea nitrogen [Mass/Vol] 20.0 mg/dL Normal 9.0-20.0 [facility] Comment on above: Performed By: #### H STROPN, BNP, BMP #### [facility] [address] [address] [address] Trevor Nichols Urea nitrogen/Creatinine [Mass ratio] 14.6 mg/mg Normal [facility] Comment on above: Performed By: #### H STROPN, BNP, BMP #### [facility] [address] [address] [address] Trevor Nichols TROPONIN, HIGH SENSITIVITYon 05-15-2021 HSTROP 7.1 pg/mL Normal 4.0-42.2 [facility] Comment on above: Result Comment: CUT- OFF POINTS HAVE BEEN ESTABLISHED BASED ON THE FOURTH UNIVERSAL DEFINITIONS OF MYOCARDIAL INFARCTION. THE UPPER REFERENCE LIMIT (URL) OF TROPONIN, DEFINED THE 99TH PERCENTILE OF cTnI DISTRIBUTION IN A REFERENCE POPULATION, HAS BEEN CONFIRMED THE DECISION THRESHOLD FOR MS DIAGNOSIS. Performed By: #### H STROPN, BNP, BMP #### [facility] [address] [address] [address] Trevor Nichols TSHon 05-15-2021 TSH 1.972 uIU/mL Normal 0.470-4.680 [facility] Comment on above: Performed By: #### T SH, FT3 ####[facility] [address] [id number] Trevor Nichols TSH RANGE SEE BELOW Normal [facility] Comment on above: Result Comment: <0.3 4 UIU/ml HYPERTHYROID 0.34-5.60 UIU/ml EUTHYROID >5.60 UIU/ml HYPOTHYROID Performed By: #### T SH, FT3 ####[facility] [address] [address]Dr. Trevor Nichols D-DIMERon 05-14-2021 D-DIMER 0.76 mg/L FEU Critically high 0.19-0.50 [facility] Comment on above: Performed By: #### H STROPN, BNP, BMP #### [facility] [address] [address] [address] Trevor Nichols D-DIMER COMMENTS SEE BELOW Normal [facility] Comment on above: Result Comment: Incr eases [...] By: #### H STROPN, BNP, BMP #### [facility] [address] [address] [address] Trevor Nichols PROF CHEM 8 (BAS METB)on Anion gap [Moles/Vol] 12.0 mmol/L Normal [facility] Comment on above: Performed By: #### H STROPN, BNP, BMP #### [facility] [address] [address] [address] Trevor Nichols Calcium [Mass/Vol] 8.5 mg/dL Normal 8.4-10.2 [facility] Comment on above: Performed By: #### H STROPN, BNP, BMP #### [facility] [address] [address] [address] Trevor Nichols Chloride [Moles/Vol] 106 mmol/L Normal 98-107 [facility] Comment on above: Performed By: #### H STROPN, BNP, BMP #### [facility] [address] [place] [address] Dr. Trevor Nichols CO2 [Moles/Vol] 25.0 mmol/L Normal 22.0-30.0 [facility] Comment on above: Performed By: #### H STROPN, BNP, BMP #### [facility] [address] [place] [address] Dr. Trevor Nichols Creatinine [Mass/Vol] 1.61 mg/dL Critically high 0.66-1.25 [facility] Comment on above: Performed By: #### H STROPN, BNP, BMP #### [facility] [address] [place] [address] Dr. Trevor Nichols EGFR-AF SPANISH 51 mL/min/1.73m2 Critically low >=60 [facility] Comment on above: Performed By: #### H STROPN, BNP, BMP #### [facility] [address] [place] [address] Dr. Trevor Nichols EGFR-NON AF SPANISH 42 mL/min/1.73m2 Critically low >=60 [facility] Comment on above: Performed By: #### H STROPN, BNP, BMP #### [facility] [address] [address] [address] Trevor Nichols Glucose [Mass/Vol] 115 mg/dL Critically high 74-106 [facility] Comment on above: Performed By: #### H STROPN, BNP, BMP #### [facility] [address] [address] [address] Trevor Nichols Potassium [Moles/Vol] 4.0 mmol/L Normal 3.4-5.[address] [facility] Comment on above: Performed By: #### H STROPN, BNP, BMP #### [facility] [address] [address] [address] Trevor Nichols Sodium [Moles/Vol] 139 mmol/L Normal 137-[address] [facility] Comment on above: Performed By: #### H STROPN, BNP, BMP #### [facility] [address] [address] [address] Trevor Nichols Urea nitrogen [Mass/Vol] 20.0 mg/dL Normal 9.0-20.[address] [facility] Comment on above: Performed By: #### H STROPN, BNP, BMP #### [facility] [address] [address] [address] Trevor Nichols Urea nitrogen/Creatinine [Mass ratio] 12.4 mg/mg Normal [facility] Comment on above: Performed By: #### H CHASITY, BNP, BMP #### [facility] [address] [address] [address] Trevor Nichols PROF CHEM 8 (BAS METB)on Anion gap [Moles/Vol] 19.5 mmol/L Normal [facility] Comment on above: Performed By: #### B MP ####[facility] [address] [address]DrJeffery Nichols Calcium [Mass/Vol] 9.1 mg/dL Normal 8.4-10.[address] [facility] Comment on above: Performed By: #### B MP ####[facility] [address] [address]Dr. Trevor Nichols Chloride [Moles/Vol] 104 mmol/L Normal 98-[address] [facility] Comment on above: Performed By: #### B MP ####[facility] [address] [address]DrJeffery Nichols CO2 [Moles/Vol] 19.6 mmol/L Critically low 22.0-30.[address] [facility] Comment on above: Performed By: #### B MP ####[facility] [address] [address]Dr. Trevor Nichols Creatinine [Mass/Vol] 1.69 mg/dL Critically high 0.66-1.[address] [facility] Comment on above: Performed By: #### B MP ####[facility] [address] [address]Dr. Trevor Nichols EGFR-AF SPANISH 48 mL/min/1.73m2 Critically low >=[address] [facility] Comment on above: Performed By: #### B MP ####[facility] [address] [address]Dr. Trevor Nichols EGFR-NON AF SPANISH 40 mL/min/1.73m2 Critically low >=[address] [facility] Comment on above: Performed By: #### B MP ####[facility] [address] [place], [place] [address]Dr. Trevor Nichols Glucose [Mass/Vol] 95 mg/dL Normal 74-[address] [facility] Comment on above: Performed By: #### B MP ####[facility] [address] [address]Dr. Trevor Nichols Potassium [Moles/Vol] 5.4 mmol/L Critically high 3.4-5.[address] [facility] Comment on above: Performed By: #### B MP ####[facility] [address] [place], [place] [address]Dr. Trevor Nichols Sodium [Moles/Vol] 138 mmol/L Normal 137-[address] [facility] Comment on above: Performed By: #### B MP ####[facility] [address] [address]Dr. Trevor Nichols Urea nitrogen [Mass/Vol] 26.0 mg/dL Critically high 9.0-20.[address] [facility] Comment on above: Performed By: #### B MP ####[facility] [address] [place], [place] [address]Dr. Trevor Simone Urea nitrogen/Creatinine [Mass ratio] 15.4 mg/mg Normal [facility] Comment on above: Performed By: #### B MP ####[facility] [address] [place], [place] [address]Dr. Trevor Nichols BNPon 04-29-2021 Natriuretic peptide B (Bld) [Mass/Vol] 421.0 pg/mL Normal <=900.[address] [facility] Comment on above: Performed By: #### B FLEET OPERATIONS MANAGER, MG ####[facility] [address] [place] [address] Rose Marie CBC W MANUAL DIFFon 04-29-20 21 ATYPICAL LYMPH # 0.19 103/ul Normal [facility] Comment on above: Performed By: #### C JOBY ####[facility] [address] [place] [address] Rose Marie#### PERSMR ####[facility] [address] [place], [place] [address]Dr. Trevor Nichols ATYPICAL LYMPH % 4 % Normal [facility] Comment on above: Performed By: #### C JOBY ####[facility] [address] [place] [address] Rose Marie#### PERSMR ####[facility] [address] [place], [place] [address]Dr. Trevor Nichols BAND # 0.2 103/ul Normal 0.0-0.[address] [facility] Comment on above: Performed By: #### C JOBY ####[facility] [address] [place] [address] Rose Marie#### PERSMR ####[facility] [address] [place], [place] [address]Dr. Yilan Nichols BAND % 5 % Normal 0-[address] [facility] Comment on above: Performed By: #### C JOBY ####[facility] [address] [place] [address] Rose Marie#### PERSMR ####[facility] [address] [place], [place] [address]Dr. Trevor Nichols BASOM # 0.05 103/ul Normal 0.00-0.[address] [facility] Comment on above: Performed By: #### C JOBY ####[facility] [address] [place], [place] [address] Rose Marie#### PERSMR ####[facility] [address] [address]Dr. Trevor Nichols BASOM % 1.0 % Normal 0.2-2.[address] [facility] Comment on above: Performed By: #### C JOBY ####[facility] [address] [place] [address] Rose Marie#### PERSMR ####[facility] [address] [address]Dr. Trevor Nichols BLAST # Normal [facility] Comment on above: Performed By: #### C JOBY ####[facility] [address] [place] [address] Rose Marie#### PERSMR ####[facility] [address] [place], [place] [address]Dr. Trevor Nichols BLAST % Normal [facility] Comment on above: Performed By: #### C JOBY ####[facility] [address] [place] [address] Rose Marie#### PERSMR ####[facility] [address] [place], [place] [address]Dr. Trevor Nichols CORRECTED WBC Normal 4.0-11.[address] [facility] Comment on above: Performed By: #### C JOBY ####[facility] [address] [place] [address] Rose Marie#### PERSMR ####[facility] [address] [place], [place] [address]Dr. Trevor Nichols EOS # 0.00 103/ul Normal 0.00-0.[address] [facility] Comment on above: Performed By: #### C JOBY ####[facility] [address] [place] [address] Rose Marie#### PERSMR ####[facility] [address] [place], [place] [address]Dr. Trevor Nichols EOS% 0.0 % Critically low 0.9-7.[address] [facility] Comment on above: Performed By: #### C JOBY ####[facility] [address] [place] [address] Rose Marie#### PERSMR ####[facility] [address] [place], [place] [address]Dr. Trevor Nichols HCT 35.7 % Critically low 42.0-54.0 [facility] Comment on above: Performed By: #### C JOBY ####[facility] [address] [place] [address] Rose Marie#### PERSMR ####[facility] [address] [place], [place] [address]Dr. Trevor Nichols HGB 11.7 g/dl Critically low 14.0-18.[address] [facility] Comment on above: Performed By: #### Brodie HEMPHILL ####[facility] [address] [place] [address] Rose Marie#### PERSMR ####[facility] [address] [place], [place] [address]Dr. Trevor Nichols LYMPHM # 0.72 103/ul Critically low 1.20-3.80 [facility] Comment on above: Performed By: #### Brodie HEMPHILL ####[facility] [address] [place] [address] Rose Marie#### PERSMR ####[facility] [address] [place], [place] [address]Dr. Trevor Nichols LYMPHM% 15.0 % Critically low 20.5-60.[address] [facility] Comment on above: Performed By: #### Brodie HEMPHLIL ####[facility] [address] [place] [address] Rose Marie#### PERSMR ####[facility] [address]ra[address] [place], [place] [address]Dr. Trevor Nichols MCH 34.4 pg Critically high 25.9-34.[address] [facility] Comment on above: Performed By: #### C JOBY ####[facility] [address] [place] [address] Rose Marie#### PERSMR ####[facility] [address] [address]Dr. Trevor Nichols MCHC 32.8 g/dl Normal 29.9-35.[address] [facility] Comment on above: Performed By: #### C JOBY ####[facility] J[address] [place] [address] Rose Marie#### PERSMR ####[facility] Cvyfnbyoki[address] [place], [place] [address]Dr. Trevor Nichols MCV 105.0 fL Critically high 80.0-94.[address] [facility] Comment on above: Performed By: #### C JOBY ####[facility] [address] [place] [address] [place]#### PERSMR ####[facility] Ufljszdlgt[address] [place], [place] [address]Dr. Trevor Nichols METAMYELOCYTE # Normal [facility] Comment on above: Performed By: #### C JOBY ####[facility] Ws[address]wr[address] [place] [address] [place] Marie#### PERSMR ####[facility] Gyphveatft94[address] [place], [place] [address]Dr. Trevor Nichols METAMYELOCYTE % Normal [facility] Comment on above: Performed By: #### C JOBY ####[facility] Pyendqclxs[address] [place] [address] [place] Marie#### PERSMR ####[facility] Jrgucnedym66[address] [place], [place] [address]Dr. Trevor Nichols MONOM# 1.25 103/ul Critically high 0.30-0.[address] [facility] Comment on above: Performed By: #### C JOBY ####[facility] R[address]eost[address] [place] [address] [place] Marie#### PERSMR ####[facility] Zokjfvbltk[address] [place], [place] [address]Dr. Trevor Nichols MONOM% 26.0 % Critically high 1.7-12.0 [facility] Comment on above: Performed By: #### C JOBY ####[facility] [address] [place] [address]Ger[place] Marie#### PERSMR ####[facility] Emiyvarjfz4527 [place] [id number]. Trevor Nichols MPV 10.5 fL Normal 9.5-13.5 [facility] Comment on above: Performed By: #### Brodie HEMPHILL ####[facility] Ekzcergiqp3483 [place] [address]Ger[place]#### PERSMR ####[facility] Xnxkcojulz2831 [place] [id number]. Trevor Nichols MYELOCYTE # Normal [facility] Comment on above: Performed By: #### Brodie HEMPHILL ####[facility] Xbluihsutc[address] [place] [address] [place] Marie#### PERSMR ####[facility] Ikqgvfuimb8[address] [place] [address]Dr. Trevor Nichols MYELOCYTE % Normal [facility] Comment on above: Performed By: #### Brodie HEMPHILL ####[facility] Aksdvevsjd[address] [place] [address] [place] Marie#### PERSMR ####[facility] Sghtqaeoff[address] [place], [place] [address]Dr. Trevor Nichols NRBC Normal [facility] Comment on above: Performed By: #### Brodie HEMPHILL ####[facility] Xdojvusziq[address] [place], [place] [address]Gerken [place]#### PERSMR ####[facility] Ezijeequko[address] [place], [place] [address]Dr. Trevor Nichols PATH REVIEW INDICATED Normal [facility] Comment on above: Performed By: #### Brodie HEMPHILL ####[facility] Ebtfnkzb[address] [place] [address] [place]#### PERSMR ####[facility] Nsbccyybmg[address] [place], [place] [address]Dr. Trevor Nichols PLT 158 103/ul Normal 150-[address] [facility] Comment on above: Performed By: #### Brodie HEMPHILL ####[facility] Ygqrnspbnf0853 [address] [place]#### PERSMR ####[facility] Csxyhmvoxc1438 [place] [id number]. Trevor Nichols RBC 3.40 106/ul Critically low 4.70-6.[address] [facility] Comment on above: Performed By: #### Brodie HEMPHILL ####[facility] Bggfdhlxkw1571 [address] [place]#### PERSMR ####[facility] Ghklekwkct04[address] [place] [address]Dr. Trevor Nichols RDW 15.6 % Critically high 11.0-15.[address] [facility] Comment on above: Performed By: #### Brodie HEMPHILL ####[facility] Zfocgrbskz9759 [address] [place]#### PERSMR ####[facility] Scvugnkxqz3772 [place] [address]Dr. Trevor Nichols SEG # 2.35 103/ul Normal 1.40-6.[address] [facility] Comment on above: Performed By: #### Brodie HEMPHILL ####[facility] Igktvtaubk[address] [place] [address] [place]#### PERSMR ####[facility] Uxmnzjseqk1840 [place] [address]Dr. Trevor Nichols SEG % 49.0 % Normal 43.0-75.[address] [facility] Comment on above: Performed By: #### Brodie HEMPHILL ####[facility] Pdqmliahrq4625 [address] [place]#### PERSMR ####[facility] Soaepkvcwr0147 [place] [address]Dr. Trevor Nichols WBC 4.8 103/ul Normal 4.0-11.[address] [facility] Comment on above: Performed By: #### C JOBY ####[facility] [address] [place] [address] Rose Marie#### PERSMR ####[facility] Hrimlwkipd20[address] [place] [address]Dr. Trevor Nichols MAGNESIUMon 04-29-2021 Magnesium [Mass/Vol] 2.4 mg/dL Critically high 1.6-2.[address] [facility] Comment on above: Performed By: #### B FLEET OPERATIONS MANAGER, MG ####[facility] Pqxbsiozvm0304 [address] [place] PERIPHERAL SMEARon Pathologist Cyto stain Nom (Cvx/Vag) [ID] DR. BHARTI PARDO Normal [facility] Comment on above: Result Comment: Kate pheral blood smear reveals isolated monocytosis with unremarkable morphology. The neutrophils and platelets are morphologically unremarkable. No atypical lymphocytes or blasts are noted. A reactive process is favored. Clinical correlation is suggested. Dr Bharti Pardo 05/01/2021 Performed By: #### C JOBY ####[facility] Crcjawfr[address] [place] [address] [place]#### PERSMR ####[facility] Axjkavybni[address] [place], [place] [address]DrJeffery Nichols VITAMIN D 25 OHon 04-29-2021 VIT D 25-OH 71.4 ng/mL Normal [facility] Comment on above: Performed By: #### V ITAD ####[facility] Uxhzceovpr[address] [place] [address] Rose Marie VIT D RANGES SEE BELOW Normal [facility] Comment on above: Result Comment: <20 ng/mL Vit D deficient 20 - <30 ng/mL Vit D insufficient 30 - 100 ng/mL Vit D sufficient >100 ng/mL Potential Toxicity Performed By: #### V ITAD ####[facility] Dyhzmvlckg[address] [place] [address] Rose Marie POC GLUCOSE LABon 06-30-2020 Glucose [Mass/Vol] 108 mg/dL High 70-100 [facility] Comment on above: Performed By: #### 4 1000, 81768 #### [facility] [address] [facility] [address], [facility] Glucose [Mass/Vol] 165 mg/dL High 70-100 [facility] Comment on above: Performed By: #### 4 1000, 41649 #### [facility] [address] C REACTIVE PROTEINon 020 CRP [Mass/Vol] 27.8 mg/L High 0.0-7.0 [facility] Comment on above: Order Comment: No: D o not add to previous draw Performed By: #### 4 1000, 25583, 94394 #### [facility] [address] [place] [address], [facility] CBC COMPLETE BLOOD COUNTon 08-29-2019 Erythrocyte distribution width (RBC) [Ratio] 14.3 % Normal 11.5-15.0 [facility] Comment on above: Order Comment: No: D o not add to previous draw Performed By: #### 4 1000, 35332 #### [facility] [address] [place] [address], [facility] Hematocrit (Bld) [Volume fraction] 34.7 % Low 39.0-50.0 [facility] Comment on above: Order Comment: No: D o not add to previous draw Performed By: #### 4 1000, 10652 #### [facility] [address] [facility] [place] [address], [facility] Hemoglobin (Bld) [Mass/Vol] 11.6 g/dL Low 13.0-17.0 [facility] Comment on above: Order Comment: No: D o not add to previous draw Performed By: #### 4 1000, 96304 #### [facility] [address] [place] [address], [facility] MCH (RBC) [Entitic mass] 35.5 pg High 27.0-33.0 [facility] Comment on above: Order Comment: No: D o not add to previous draw Performed By: #### 4 1000, 24037 #### [facility] [address] [place] [address], [facility] MCHC (RBC) [Mass/Vol] 33.4 g/dL Normal 32.0-35.0 [facility] Comment on above: Order Comment: No: D o not add to previous draw Performed By: #### 4 1000, 31844 #### [facility] [address] [place] [address], [facility] MCV (RBC) [Entitic vol] 106.1 fL High 82.0-98.0 [facility] Comment on above: Order Comment: No: D o not add to previous draw Performed By: #### 4 1000, 67019 #### [facility] [address] [place] [address], [facility] Nucleated RBC/100 WBC (Bld) [Ratio] 0 % Normal 0-0 [facility] Comment on above: Order Comment: No: D o not add to previous draw Performed By: #### 4 1000, 31154 #### [facility] [address] [facility] [place] [address], [facility] PLAT CNT 150 10*3/uL Normal 150-400 [facility] Comment on above: Order Comment: No: D o not add to previous draw Performed By: #### 4 1000, 68842 #### [facility] [address] [facility] [place] [address], [facility] RBC (Bld) [#/Vol] 3.27 10*6/uL Low 4.20-5.70 [facility] Comment on above: Order Comment: No: D o not add to previous draw Performed By: #### 4 1000, 79578 #### [facility] [address] [facility] [place] [address], [facility] WBC (Bld) [#/Vol] 5.86 10*3/uL Normal 4.00-10.60 [facility] Comment on above: Order Comment: No: D o not add to previous draw Performed By: #### 4 1000, 32932 #### [facility] [address] CPKon 06-29-2020 CK [Catalytic activity/Vol] 45 U/L Normal 30-223 [facility] Comment on above: Order Comment: Unkno wn Performed By: #### 9 9909, 06002, 30196, 62350 #### [address] BRAIN WO CONTRASTon 06-29 CT BRAIN WO CONTRAST [facility] Department of Radiology [address] [place] [address] Patient Name: CHIKI JUAREZ : 1945 Sex: M Age: Race: White Pt. Location: [id number] Patient Status: I Ordered Date: 06/29/2020 9:20:00 AM Completed Date: 06/29/2020 07:10 PM Requesting Provider: RYASA LEDESMA Attending Provider: MYA BHAKTA Report Copy [...] region. Electronically signed: Aleta Armas. Transcribed by: [email or web address], User Resident: Electronically Signed by: ALETA ARMAS @ 06/29/2020 07:16 PM Normal [facility] Comment on above: Order Comment: No: D o not add to previous draw D DIMER TESTon 06-29-2020 D-DIMER TEST 1.44 mcg/mL FEU High 0.27-0.49 [facility] Comment on above: Order Comment: No: D o not add to previous draw Result Comment: D-Di fide values of less than 0.50 ug/ml (FEU) are considered to be a negative predictor of thrombosis. However, the D-Dimer result should be used in conjunction with pretest probability and should not be used alone to diagnose a thrombotic event. Performed By: #### 4 1000, 66985, 12971 #### [facility] [address] [facility]. [address] FERRITINon 06-29-2020 Ferritin [Mass/Vol] 271 ng/mL Normal 24-336 [facility] Comment on above: Order Comment: Unkno wn Performed By: #### 9 9909, 98200, 89613, 68138 #### [facility] [address] [facility] [facility] LDH BLOODon 06-29-2020 LDH 148 Units/L Normal 140-271 [facility] Comment on above: Order Comment: Unkno wn Performed By: #### 9 9909, 50886, 38917, 39634 #### [facility] [address] [facility]. [address] LIPID PROFILEon 06-29-2020 Cholesterol [Mass/Vol] 176 mg/dL Normal 120-200 [facility] Comment on above: Order Comment: No: D o not add to previous draw Result Comment: CHOL ESTEROL REFERENCE RANGE: 20 YEARS AND OLDER CARDIOVASCULAR RISK Less than 200 mg/dl Low Risk 200 to 239 mg/dl Borderline Risk 240 mg/dl and greater High Risk Performed By: #### 4 1000, , 37459 #### [facility] [address] [place] [address], [place] Cholesterol in HDL [Mass/Vol] 39 mg/dL Normal 23-92 [facility] Comment on above: Order Comment: No: D o not add to previous draw Result Comment: Slig ht variation in normal range could be due to gender and/or age. HDL CHOLESTEROL REFERENCE RANGE: 20 years and older Cardiovascular Risk > or =60 mg/dL Desirable 40 TO 59 mg/dL Low Risk <40 mg/dL High Risk Performed By: #### 4 1000, , 73572 #### [facility] [address] [place] [address], [place] Cholesterol in LDL [Mass/Vol] 100 mg/dL Normal 0-130 [facility] Comment on above: Order Comment: No: D o not add to previous draw Result Comment: LDL IS A CALCULATION LDL IS ONLY VALID IF THE TRIG IS LESS THAN 400. Performed By: #### 4 1000, , 38099 #### [facility] [address] [facility] [place] [address], [place] Cholesterol.total/Ch olesterol in HDL [Mass ratio] 4.5 {ratio} Normal 0.0-4.5 [facility] Comment on above: Order Comment: No: D o not add to previous draw Performed By: #### 4 1000, , 21728 #### [facility] [address] [place] [address], [place] NON-HDL CHOLESTEROL 137 mg/dL Normal [facility] Comment on above: Order Comment: No: D o not add to previous draw Performed By: #### 4 1000, , 96449 #### [facility] [address] [place] [address], [place] Triglyceride [Mass/Vol] 187 mg/dL High 40-149 [facility] Comment on above: Order Comment: No: D o not add to previous draw Result Comment: TRIG LYCERIDE REFERENCE RANGE: 20 YEARS AND OLDER CARDIOVASCULAR RISK LESS THAN 150 mg/dl LOW RISK 150 TO 199 mg/dl BORDERLINE RISK 200 mg/dl AND GREATER HIGH RISK Performed By: #### 4 1000, 38760, 44688 #### [facility] [address] [place] [address], [facility] VLDL CHOL 37 mg/dL Normal 0-40 [facility] Comment on above: Order Comment: No: D o not add to previous draw Performed By: #### 4 1000, 29937, 65414 #### [facility] [address] [place] [address], [facility] LIVER BATTERYon 06-29-2020 Albumin [Mass/Vol] 3.4 g/dL Low 3.5-5.7 [facility] Comment on above: Order Comment: Unkno wn Performed By: #### 9 9909, 41173, 04186, 56780 #### [facility] [address] [place] [address], [place] ALKALINE PHOSPH 60 IU/L Normal 34-104 [facility] Comment on above: Order Comment: Unkno wn Performed By: #### 9 9909, 28378, 25463, 16102 #### [facility] [address] [place] [address], [place] ALT [Catalytic activity/Vol] 8 U/L Normal 7-52 [facility] Comment on above: Order Comment: Unkno wn Performed By: #### 9 9909, 70594, 78301, 91911 #### [facility] [address] [place] [address], [place] AST [Catalytic activity/Vol] 11 U/L Low 13-39 [facility] Comment on above: Order Comment: Unkno wn Performed By: #### 9 9909, 87884, 85036, 93526 #### [facility] [address] [place] [address], [place] Bilirubin [Mass/Vol] 0.5 mg/dL Normal 0.3-1.0 [facility] Comment on above: Order Comment: Unkno wn Performed By: #### 9 9909, 52482, 08512, 42642 #### [facility] [address] [place] [address], [place] Bilirubin.direct [Mass/Vol] 0.1 mg/dL Normal 0.0-0.2 [facility] Comment on above: Order Comment: Unkno wn Performed By: #### 9 9909, 07882, 13688, 06011 #### [facility] [address] [place] [address], [place] Protein [Mass/Vol] 5.8 g/dL Low 6.0-8.3 [facility] Comment on above: Order Comment: Unkno wn Performed By: #### 9 9909, 88562, 80545, 87606 #### [facility] [address] [place] [address], [place] POC GLUCOSE LABon 06-29-2020 Glucose [Mass/Vol] 112 mg/dL High 70-100 [facility] Comment on above: Performed By: #### 4 1000, 27467 #### [facility] [address] [place] [address], [place] Glucose [Mass/Vol] 105 mg/dL High 70-100 [facility] Comment on above: Performed By: #### 4 1000, 91105 #### [facility] [address] [place] [address], [place] Glucose [Mass/Vol] 94 mg/dL Normal 70-100 [facility] Comment on above: Performed By: #### 4 1000, 83487, 93354 #### [facility] [address] [place] [address], [place] Glucose [Mass/Vol] 121 mg/dL High 70-100 [facility] Comment on above: Performed By: #### 4 1000, 62674 #### [address] PORTABLE CHEST 1 VIEWon 06-17 PORTABLE CHEST 1 VIEW [facility] Department of Radiology [address] [place] [id number] Patient Name: CHIKI JUAREZ : 1945 Sex: M Age: Race: White Pt. Location: [id number] Patient Status: I Ordered Date: 06/29/2020 5:45:00 [...] placement. Electronically signed: Aleta Armas. Transcribed by: [email or web address], User Resident: Electronically Signed by: ALETA ARMAS @ 06/29/2020 08:15 PM Normal [facility] Comment on above: Order Comment: No: D o not add to previous draw BASIC METABOLIC PANELon 11 Calcium [Mass/Vol] 8.8 mg/dL Normal 8.6-10.3 [facility] Comment on above: Order Comment: No: D o not add to previous draw Performed By: #### 4 1000, 83358, 51437 #### [facility] [address] [place] [address], [place] Chloride [Moles/Vol] 102 mmol/L Normal 98-107 [facility] Comment on above: Order Comment: No: D o not add to previous draw Performed By: #### 4 1000, 91133, 96547 #### [facility] [address] [place] [address], [place] CO2 [Moles/Vol] 24 mmol/L Normal 21-31 [facility] Comment on above: Order Comment: No: D o not add to previous draw Performed By: #### 4 1000, 83101, 77971 #### [facility] [address] [place] [address], [place] Creatinine [Mass/Vol] 1.31 mg/dL High 0.70-1.30 [facility] Comment on above: Order Comment: No: D o not add to previous draw Performed By: #### 4 1000, 73243, 98766 #### [facility] [address] [place] [address], [place] GFR/1.73 sq M predicted among blacks MDRD (S/P/Bld) [Vol rate/Area] mL/min/{1.73_m2} Normal >60 [facility] Comment on above: Order Comment: No: D o not add to previous draw Result Comment: Calc ulation may not be valid for patients over 70 years Performed By: #### 4 1000, 12589, 52408 #### [facility] [address] [place] [address], [place] GFR/1.73 sq M predicted among non-blacks MDRD (S/P/Bld) [Vol rate/Area] 54 ml/min/1.73sq m Abnormal >60 [facility] Comment on above: Order Comment: No: D o not add to previous draw Result Comment: Calc ulation may not be valid for patients over 70 years Performed By: #### 4 1000, 76877, 09949 #### [facility] [address] [place] [address], [place] Glucose [Mass/Vol] 96 mg/dL Normal 70-100 [facility] Comment on above: Order Comment: No: D o not add to previous draw Performed By: #### 4 1000, 01185, 39887 #### [facility] [address] [place] [address], [place] Potassium [Moles/Vol] 4.3 mmol/L Normal 3.5-5.1 [facility] Comment on above: Order Comment: No: D o not add to previous draw Performed By: #### 4 1000, 42984, 96566 #### [facility] [address] [place] [address], [place] Sodium [Moles/Vol] 133 mmol/L Low 136-145 [facility] Comment on above: Order Comment: No: D o not add to previous draw Performed By: #### 4 1000, 04718, 12635 #### [facility] [address] [place] [address], [place] Urea nitrogen [Mass/Vol] 26 mg/dL High 7-25 [facility] Comment on above: Order Comment: No: D o not add to previous draw Performed By: #### 4 1000, 37309, 23438 #### [facility] [address] [place] [address], [place] CBC COMPLETE BLOOD COUNTon 08-28-2019 Erythrocyte distribution width (RBC) [Ratio] 14.4 % Normal 11.5-15.0 [facility] Comment on above: Order Comment: No: D o not add to previous draw Performed By: #### 4 1000, , 17405 #### [facility] [address] [place] [address], [facility] Hematocrit (Bld) [Volume fraction] 35.2 % Low 39.0-50.0 [facility] Comment on above: Order Comment: No: D o not add to previous draw Performed By: #### 4 1000, , 21026 #### [facility] [address] [place] [id number], [facility] Hemoglobin (Bld) [Mass/Vol] 11.8 g/dL Low 13.0-17.0 [facility] Comment on above: Order Comment: No: D o not add to previous draw Performed By: #### 4 1000, , #### [facility] [address] [place] [id number], [facility] MCH (RBC) [Entitic mass] 35.5 pg High 27.0-33.0 [facility] Comment on above: Order Comment: No: D o not add to previous draw Performed By: #### 4 1000, , #### [facility] [address] [place] [address], [facility] MCHC (RBC) [Mass/Vol] 33.5 g/dL Normal 32.0-35.0 [facility] Comment on above: Order Comment: No: D o not add to previous draw Performed By: #### 4 1000, , 72848 #### [facility] [address] [place] [id number], [facility] MCV (RBC) [Entitic vol] 106.0 fL High 82.0-98.0 [facility] Comment on above: Order Comment: No: D o not add to previous draw Performed By: #### 4 1000, , 81581 #### [facility] [address] [place] [id number], [facility] Nucleated RBC/100 WBC (Bld) [Ratio] 0 % Normal 0-0 [facility] Comment on above: Order Comment: No: D o not add to previous draw Performed By: #### 4 1000, 89974, 98766 #### [facility] [facility] [address] [facility] [place] [address], [facility] PLAT CNT 158 10*3/uL Normal 150-400 [facility] Comment on above: Order Comment: No: D o not add to previous draw Performed By: #### 4 1000, 82264, 89342 #### [facility] [address] [facility] [place] [address], [facility] RBC (Bld) [#/Vol] 3.32 10*6/uL Low 4.20-5.70 [facility] Comment on above: Order Comment: No: D o not add to previous draw Performed By: #### 4 1000, 73982, 73234 #### [facility] [address] [facility] [place] [address], [facility] WBC (Bld) [#/Vol] 7.25 10*3/uL Normal 4.00-10.60 [facility] Comment on above: Order Comment: No: D o not add to previous draw Performed By: #### 4 1000, , 76846 #### [facility] [address] Cardiovascular Lab Reporton 06-28-2020 Cardiovascular Lab Report [facility] Patient Name: Chiki Juarez [facility] MR #: [id number] Physician: Connor Carrera MD Department of Service Date: 06/28/2020 Medicine Birthdate: 1945 Division of Room #: 3CD 419172 Cardiology Adult Cardiovascular Services [facility] [address] [place] [address] Cardiovascular Laboratory Report DUAL CHAMBER PACEMAKER IMPLANT PROCEDURE NOTE DATE OF PROCEDURE: 06/28/2020 PERFORMING PHYSICIAN: Dr. Connor Carrera CONSENT: Patient LOCATION: EP Lab PROCEDURE PERFORMED: 1. Implantation of pacemaker ([employer]) 2. Ultrasound guided venous access INDICATIONS: [...] using modified seldinger technique using a 5 Tajik micro-puncture needle on two occasions and 0.24 [...] was made enough for the device. 6 Tajik Safesheaths were placed over the wire. An active fixation [employer] pacing lead was then delivered through the 6Fsheath to the right ventricle. After confirmation of lead position on orthogonal views (PARK and BURKINAN) to confirm septal position, the screw was activated, and the lead was placed in the right ventricular mid cavity towards the septum. After confirmation of good sensing parameters, injury pattern and pacing thresholds, 10V pacing was done and no diaphragmatic stimulation was noted. It was then secured in the pocket using three 1-0 Silk sutures. Then an active fixation [employer] lead was delivered through the 6Fsheath to the right atrial appendage. After confirmation of lead position on orthogonal views (PARK and BURKINAN), the screw was activated. After confirmation of [...] immediate procedural complications were noted. Device info: [employer] Accolade MRI EL Model# L331 Serial# [id number] RA lead: Model# INGEVITY 7740 (45cms) Serial# [id number] Sensin.7mV Threshold: 0.9V@0.4ms Impedance: 666Ohms RV lead: Model# INGEVITY [id number](52cms) Serial# [id number] Sensin.1mV Threshold: 0.4V@0.4ms Impedance: 746Ohms POST PROCEDURE [...] Carrera MD Date Trans: 06/28/2020 03:33 P/alondra [id number] cc: Will Sherwood M.D. [address] [place] [id number] Normal [facility] MAGNESIUM BLOODon 06-28-2020 Magnesium [Mass/Vol] 2.1 mg/dL Normal 1.9-2.7 [facility] Comment on above: Order Comment: No: D o not add to previous draw Performed By: #### 4 1000, 54451, 50690 #### [facility] [address] [place] [address], [place] PHOSPHORUS BLOODon 0 Phosphate [Mass/Vol] 3.7 mg/dL Normal 2.5-5.0 [facility] Comment on above: Order Comment: No: D o not add to previous draw Performed By: #### 4 1000, 79588, 78197 #### [facility] [address] [place] [address], [place] POC GLUCOSE LABon 06-28-2020 Glucose [Mass/Vol] 93 mg/dL Normal 70-100 [facility] Comment on above: Performed By: #### 4 1000, 09073 #### [facility] [address] [place] [address], [place] Glucose [Mass/Vol] 90 mg/dL Normal 70-100 [facility] Comment on above: Performed By: #### 4 1000, 00197 #### [facility] [address] [place] [address], [place] Glucose [Mass/Vol] 97 mg/dL Normal 70-100 [facility] Comment on above: Performed By: #### 4 1000, 25725 #### [facility] [address] [place] [address], [place] Glucose [Mass/Vol] 99 mg/dL Normal 70-100 [facility] Comment on above: Performed By: #### 4 1000, 69360 #### [facility] [address] [place] [address], [place] APTTon 06-27-2020 aPTT Coag (Bld) [Time] 34.8 s Normal 25.0-35.0 [facility] Comment on above: Order Comment: No: D [...] THIS PURPOSE. Performed By: #### 4 1000, 70483 #### [facility] [address] BASIC METABOLIC PANELon 11-1 Calcium [Mass/Vol] 9.1 mg/dL Normal 8.6-10.3 [facility] Comment on above: Order Comment: No: D o not add to previous draw Performed By: #### 4 1000, 27873, 93620 #### [facility] [address] [place] [address], [facility] Chloride [Moles/Vol] 104 mmol/L Normal 98-107 [facility] Comment on above: Order Comment: No: D o not add to previous draw Performed By: #### 4 1000, 62068, 78700 #### [facility] [address] [place] [address], [facility] CO2 [Moles/Vol] 23 mmol/L Normal 21-31 [facility] Comment on above: Order Comment: No: D o not add to previous draw Performed By: #### 4 1000, 07254, 37039 #### [facility] [address] [place] [address], [facility] Creatinine [Mass/Vol] 1.21 mg/dL Normal 0.70-1.30 [facility] Comment on above: Order Comment: No: D o not add to previous draw Performed By: #### 4 1000, 50562, 89292 #### [facility] [address] [place] [address], [facility] GFR/1.73 sq M predicted among blacks MDRD (S/P/Bld) [Vol rate/Area] mL/min/{1.73_m2} Normal >60 [facility] Comment on above: Order Comment: No: D o not add to previous draw Result Comment: Calc ulation may not be valid for patients over 70 years Performed By: #### 4 1000, , 69001 #### [facility] [address] [place] [address], [place] GFR/1.73 sq M predicted among non-blacks MDRD (S/P/Bld) [Vol rate/Area] 59 ml/min/1.73sq m Abnormal >60 [facility] Comment on above: Order Comment: No: D o not add to previous draw Result Comment: Calc ulation may not be valid for patients over 70 years Performed By: #### 4 1000, , 87621 #### [facility] [address] [place] [address], [place] Glucose [Mass/Vol] 132 mg/dL High 70-100 [facility] Comment on above: Order Comment: No: D o not add to previous draw Performed By: #### 4 1000, , 99372 #### [facility] [address] [place] [address], [place] Potassium [Moles/Vol] 5.2 mmol/L High 3.5-5.1 [facility] Comment on above: Order Comment: No: D o not add to previous draw Performed By: #### 4 1000, , 88530 #### [facility] [address] [place] [address], [place] Sodium [Moles/Vol] 135 mmol/L Low 136-145 [facility] Comment on above: Order Comment: No: D o not add to previous draw Performed By: #### 4 1000, , 79354 #### [facility] [address] [place] [address], [place] Urea nitrogen [Mass/Vol] 21 mg/dL Normal 7-25 [facility] Comment on above: Order Comment: No: D o not add to previous draw Performed By: #### 4 1000, , 07329 #### [facility] [address] [place] [address], [facility] C REACTIVE PROTEINon 020 CRP [Mass/Vol] 40.5 mg/L High 0.0-7.0 [facility] Comment on above: Order Comment: No: D o not add to previous draw Performed By: #### 4 1000, 08188, 03657 #### [facility] [address] [place] [address], [facility] CBC W/DIFFon 06-27-2020 ABS BASOPHILS 0.0 10*3/uL Normal 0.0-0.2 [facility] Comment on above: Order Comment: No: D o not add to previous draw Performed By: #### 4 1000, 71464 #### [facility] [address] [place] [address], [facility] ABS NEUTROPHILS 4.5 10*3/uL Normal 1.6-7.6 [facility] Comment on above: Order Comment: No: D o not add to previous draw Performed By: #### 4 1000, 28324 #### [facility] [address] [facility] [place] [address], [facility] Basophils/100 WBC (Bld) 0.0 % Normal 0.0-1.0 [facility] Comment on above: Order Comment: No: D o not add to previous draw Performed By: #### 4 1000, 05766 #### [facility] [address] [facility] [place] [address], [facility] Eosinophils (Bld) [#/Vol] 0.0 10*3/uL Normal 0.0-0.5 [facility] Comment on above: Order Comment: No: D o not add to previous draw Performed By: #### 4 1000, 79812 #### [facility] [address] [place] [address], [facility] Eosinophils/100 WBC (Bld) 0.0 % Normal 0.0-6.0 [facility] Comment on above: Order Comment: No: D o not add to previous draw Performed By: #### 4 1000, 31700 #### [facility] [address] [place] [address], [facility] Erythrocyte distribution width (RBC) [Ratio] 14.1 % Normal 11.5-15.0 [facility] Comment on above: Order Comment: No: D o not add to previous draw Performed By: #### 4 1000, 63581 #### [facility] [address] [place] [address], [facility] GIANT PLATELETS Present Normal [facility] Comment on above: Order Comment: No: D o not add to previous draw Performed By: #### 4 1000, 38771 #### [facility] [address] [place] [address], [facility] Hematocrit (Bld) [Volume fraction] 36.0 % Low 39.0-50.0 [facility] Comment on above: Order Comment: No: D o not add to previous draw Performed By: #### 4 1000, 67667 #### [facility] [address] [place] [address], [facility] Hemoglobin (Bld) [Mass/Vol] 11.8 g/dL Low 13.0-17.0 [facility] Comment on above: Order Comment: No: D o not add to previous draw Performed By: #### 4 1000, 70841 #### [facility] [address] [facility] [place] [address], [facility] Lymphocytes (Bld) [#/Vol] 0.5 10*3/uL Low 1.2-4.0 [facility] Comment on above: Order Comment: No: D o not add to previous draw Performed By: #### 4 1000, 62849 #### [facility] [address] [place] [id number], [facility] Lymphocytes/100 WBC (Bld) 8.2 % Low 20.0-45.0 [facility] Comment on above: Order Comment: No: D o not add to previous draw Performed By: #### 4 1000, 15510 #### [facility] [address] [place] [address], [facility] MCH (RBC) [Entitic mass] 35.2 pg High 27.0-33.0 [facility] Comment on above: Order Comment: No: D o not add to previous draw Performed By: #### 4 1000, 99957 #### [facility] [address] [place] [address], [facility] MCHC (RBC) [Mass/Vol] 32.8 g/dL Normal 32.0-35.0 [facility] Comment on above: Order Comment: No: D o not add to previous draw Performed By: #### 4 1000, 07341 #### [facility] [address] [place] [address], [facility] MCV (RBC) [Entitic vol] 107.5 fL High 82.0-98.0 [facility] Comment on above: Order Comment: No: D o not add to previous draw Performed By: #### 4 1000, 57230 #### [facility] [address] [facility] [place] [address], [facility] METAMYELO 3.7 % High 0.0-0.0 [facility] Comment on above: Order Comment: No: D o not add to previous draw Performed By: #### 4 1000, 13601 #### [facility] [address] [facility] [place] [address], [facility] Monocytes (Bld) [#/Vol] 0.5 10*3/uL Normal 0.1-1.0 [facility] Comment on above: Order Comment: No: D o not add to previous draw Performed By: #### 4 1000, 27698 #### [facility] [address] [place] [address], [facility] MONOS 9.2 % Normal 5.0-12.0 [facility] Comment on above: Order Comment: No: D o not add to previous draw Performed By: #### 4 1000, 72864 #### [facility] [address] [place] [address], [facility] MYELOS 3.7 % High 0.0-0.0 [facility] Comment on above: Order Comment: No: D o not add to previous draw Performed By: #### 4 1000, 39306 #### [facility] [address] [place] [address], [place] Neutrophils/100 WBC (Bld) 75.2 % High 40.0-72.0 [facility] Comment on above: Order Comment: No: D o not add to previous draw Performed By: #### 4 1000, 26332 #### [facility] [address] [place] [address], [place] NRBC SCAN Present Normal [facility] Comment on above: Order Comment: No: D o not add to previous draw Performed By: #### 4 1000, 90839 #### [facility] [address] [place] [address], [place] Nucleated RBC/100 WBC (Bld) [Ratio] 0 % Normal 0-0 [facility] Comment on above: Order Comment: No: D o not add to previous draw Performed By: #### 4 1000, 90068 #### [facility] [address] [place] [address], [place] PLAT CNT 153 10*3/uL Normal 150-400 [facility] Comment on above: Order Comment: No: D o not add to previous draw Performed By: #### 4 1000, 34175 #### [facility] [address] [place] [address], [place] RBC (Bld) [#/Vol] 3.35 10*6/uL Low 4.20-5.70 [facility] Comment on above: Order Comment: No: D o not add to previous draw Performed By: #### 4 1000, 50245 #### [facility] [address] [place] [address], [place] WBC (Bld) [#/Vol] 5.92 10*3/uL Normal 4.00-10.60 [facility] Comment on above: Order Comment: No: D o not add to previous draw Performed By: #### 4 1000, 56928 #### [facility] [address] [place] [address], [facility] CPKon 06-27-2020 CK [Catalytic activity/Vol] 90 U/L Normal 30-223 [facility] Comment on above: Order Comment: No: D o not add to previous draw Performed By: #### 4 1000, 28512, 63591 #### [facility] [address] [place] [address], [facility] CTA HEADon 06-27-2020 CTA HEAD [facility] Department of Radiology [address] [place] [id number] Patient Name: CHIKI JUAREZ : 1945 Sex: M Age: Race: White Pt. Location: [id number] Patient Status: I Ordered Date: 06/27/2020 9:05:00 [...] achievable Electronically signed: Ashu García. Transcribed by: [email or web address], User Resident: Electronically Signed by: ASHU GARCÍA @ 06/27/2020 01:12 PM Normal [facility] Comment on above: Order Comment: No: D o not add to previous draw CTA NECKon 06-27-2020 CTA NECK [facility] Department of Radiology [address] [place] [id number] Patient Name: CHIKI JUAREZ : 1945 Sex: M Age: Race: White Pt. Location: [id number] Patient Status: I Ordered Date: 06/27/2020 9:05:00 [...] viewed on a separate workstation. The [place] Symptomatic Carotid Endarterectomy Trial (NASCET) method for [...] achievable Electronically signed: Ashu García. Transcribed by: [email or web address], User Resident: Electronically Signed by: ASHU GARCÍA @ 06/27/2020 01:08 PM Normal [facility] D DIMER TESTon 06-27-2020 D-DIMER TEST 0.39 mcg/mL FEU Normal 0.27-0.49 [facility] Comment on above: Order Comment: No: D o not add to previous draw Result Comment: D-Di fide values of less than 0.50 ug/ml (FEU) are considered to be a negative predictor of thrombosis. However, the D-Dimer result should be used in conjunction with pretest probability and should not be used alone to diagnose a thrombotic event. Performed By: #### 4 1000, 41668 #### [facility] [address] [place] [address], [facility] FERRITINon 06-27-2020 Ferritin [Mass/Vol] 250 ng/mL Normal 24-336 [facility] Comment on above: Order Comment: No: D o not add to previous draw Performed By: #### 4 1000, 31629, 92439 #### [facility] [address] HEMOGLOBIN A1Con 06-27-2020 HbA1c (Bld) [Mass fraction] 134 mmol/L Normal [facility] Comment on above: Order Comment: No: D o not add to previous draw Performed By: #### 4 1000, 03382, 75425 #### [facility] [address] [place] [address], [facility] HbA1c (Bld) [Mass fraction] 6.3 % High 4.0-6.0 [facility] Comment on above: Order Comment: No: D o not add to previous draw Performed By: #### 4 1000, 26836, 87331 #### [facility] [address] [place] [address], [facility] LDH BLOODon 06-27-2020 LDH 213 Units/L Normal 140-271 [facility] Comment on above: Order Comment: No: D o not add to previous draw Performed By: #### 4 1000, , 99434 #### [facility] [address] [place] [address], [facility] LIVER BATTERYon 06-27-2020 Albumin [Mass/Vol] 3.5 g/dL Normal 3.5-5.7 [facility] Comment on above: Order Comment: No: D o not add to previous draw Performed By: #### 4 1000, , 77191 #### [facility] [address] [place] [address], [place] ALKALINE PHOSPH 62 IU/L Normal 34-104 [facility] Comment on above: Order Comment: No: D o not add to previous draw Performed By: #### 4 1000, , 01623 #### [facility] [address] [place] [address], [place] ALT [Catalytic activity/Vol] 11 U/L Normal 7-52 [facility] Comment on above: Order Comment: No: D o not add to previous draw Performed By: #### 4 1000, , 14917 #### [facility] [address] [place] [address], [place] AST [Catalytic activity/Vol] 10 U/L Low 13-39 [facility] Comment on above: Order Comment: No: D o not add to previous draw Performed By: #### 4 1000, , 75946 #### [facility] [address] [place] [address], [place] Bilirubin [Mass/Vol] 0.5 mg/dL Normal 0.3-1.0 [facility] Comment on above: Order Comment: No: D o not add to previous draw Performed By: #### 4 1000, , 32099 #### [facility] [address] [place] [address], [place] Bilirubin.direct [Mass/Vol] 0.2 mg/dL Normal 0.0-0.2 [facility] Comment on above: Order Comment: No: D o not add to previous draw Performed By: #### 4 1000, , 16195 #### [facility] [address] [place] [address], [place] Protein [Mass/Vol] 6.0 g/dL Normal 6.0-8.3 [facility] Comment on above: Order Comment: No: D o not add to previous draw Performed By: #### 4 1000, 08819, 88609 #### [facility] [address] [place] [address], [facility] MAGNESIUM BLOODon 06-27-2020 Magnesium [Mass/Vol] 2.3 mg/dL Normal 1.9-2.7 [facility] Comment on above: Order Comment: No: D o not add to previous draw Performed By: #### 4 1000, 30138, 53154 #### [facility] [address] [place] [address], [facility] POC GLUCOSE LABon 06-27-2020 Glucose [Mass/Vol] 103 mg/dL High 70-100 [facility] Comment on above: Performed By: #### 4 1000, 98772 #### [facility] [address] [place] [address], [facility] Glucose [Mass/Vol] 100 mg/dL Normal 70-100 [facility] Comment on above: Performed By: #### 4 1000, 69996 #### [facility] [address] [place] [address], [facility] POTASSIUM BLOODon 06-27-2020 Potassium [Moles/Vol] 4.5 mmol/L Normal 3.5-5.1 [facility] Comment on above: Order Comment: No: D o not add to previous draw Performed By: #### 4 1406 #### [facility] [address] [place] [address], [facility] PROTHROMBIN TIMEon 0 INR Coag (PPP) [Relative time] 1.05 {INR} Normal 0.91-1.16 [facility] Comment on above: Order Comment: No: D [...] CHEST 1995;[id number]. Performed By: #### 4 1000, 37185 #### [facility] [address] PT Coag (PPP) [Time] 13.7 s Normal 12.3-14.8 [facility] Comment on above: Order Comment: No: D o not add to previous draw Result Comment: ALL RESULTS MUST BE INTERPRETED WITH RESPECT TO BLOOD DRAWING ARTIFACT OR DILUTION ERROR OF ANTICOAGULANT AT THE TIME OF SAMPLING. Performed By: #### 4 1000, 44068 #### [facility] [address] TSH3 WITH REFLEX FT4on 06-27 TSH 3RD GENERATION 0.86 uIU/mL Normal 0.34-5.60 [facility] Comment on above: Performed By: #### 4 1000, 36193, 52910 #### [facility] [address] [facility]. [address] VITAMIN B12on 06-27-2020 Cobalamin (Vitamin B12) [Mass/Vol] 3006 pg/mL High 180-914 [facility] Comment on above: Result Comment: REFE RENCE RANGES: 180-914 pg/mL Normal 145-179 pg/mL Indeterminate <145 pg/mL Deficient Performed By: #### 4 1000, 03255, 28060 #### [facility] [address] [facility] [place] [address], [facility] PHOSPHORUS BLOODon 0 Phosphate [Mass/Vol] 3.2 mg/dL Normal 2.5-5.0 [facility] Comment on above: Order Comment: No: D o not add to previous draw Performed By: #### 4 1000, 55247 #### [facility] [address] [facility] [place] [address], [facility] TROPONIN-Ion 06-26-2020 Troponin I.cardiac [Mass/Vol] 0.01 ng/mL Normal 0.00-0.04 [facility] Comment on above: Order Comment: No: D o not add to previous draw Result Comment: REFE RENCE RANGES: 0.00 - 0.04 ng/ml NORMAL 0.05 - 0.50 ng/ml INDETERMINATE > 0.50 ng/ml CONSISTENT WITH AN M.I. Performed By: #### 4 1000, 41640 #### [facility] [address] Vital Signs Date Time Vital Sign Value Performing Clinician Facility 11-21-2024 15:05-0400 Body mass index (BMI) [Ratio] 32.52 kg/m2 Tyler Draper MD Work Phone: [facility] 11-21-2024 15:05-0400 Body temperature 97.7 [degF] Tyler Draper MD Work Phone: [facility] 11-21-2024 15:05-0400 Body weight 97 kg Tyler Draper MD Work Phone: [facility] 11-21-2024 15:05-0400 Diastolic blood pressure 65 mm[Hg] Tyler Draper MD Work Phone: [facility] 11-21-2024 15:05-0400 Heart rate 83 /min Tyler Draper MD Work Phone: [facility] 11-21-2024 15:05-0400 Respiratory rate 24 /min Tyler Draper MD Work Phone: [facility] 11-21-2024 15:05-0400 SaO2% (BldA) [Mass fraction] 90 % Tyler Draper MD Work Phone: [facility] 11-21-2024 15:05-0400 Systolic blood pressure 122 mm[Hg] Tyler Draper MD Work Phone: [facility] 06-20-2024 08:42-0500 Body height 162.6 cm Connor Biedenbach DO Work Phone: [facility] 06-20-2024 08:42-0500 Body mass index (BMI) [Ratio] 37.76 kg/m2 Connor Biedenbach DO Work Phone: [facility] 06-20-2024 08:42-0500 Body weight 99.79 kg Connor Biedenbach DO Work Phone: [facility] 06-09-2024 09:43-0400 Body height 162.6 cm Connor Biedenbach DO Work Phone: [facility] 06-09-2024 09:43-0400 Body mass index (BMI) [Ratio] 37.76 kg/m2 Connor Biedenbach DO Work Phone: [facility] 06-09-2024 09:43-0400 Body weight 99.79 kg Connor Biedenbach DO Work Phone: [facility] 06-06-2024 13:36-0400 Body mass index (BMI) [Ratio] 33.83 kg/m2 Tyler Draper MD Work Phone: [facility] 06-06-2024 13:36-0400 Body temperature 97 [degF] Tyler Draper MD Work Phone: [facility] 06-06-2024 13:36-0400 Body weight 100.9 kg Tyler Draper MD Work Phone: [facility] 06-06-2024 13:36-0400 Diastolic blood pressure 59 mm[Hg] Tyler Draper MD Work Phone: [facility] 06-06-2024 13:36-0400 Heart rate 74 /min Tyler Draper MD Work Phone: [facility] 06-06-2024 13:36-0400 Respiratory rate 18 /min Tyler Draper MD Work Phone: [facility] 06-06-2024 13:36-0400 SaO2% (BldA) [Mass fraction] 90 % Tyler Draper MD Work Phone: [facility] 06-06-2024 13:36-0400 Systolic blood pressure 109 mm[Hg] Tyler Draper MD Work Phone: [facility] 06-01-2024 16:00-0400 Diastolic blood pressure 64 mm[Hg] MD Pito Patterson Work Phone: [facility] 06-01-2024 16:00-0400 Heart rate 75 /min MD Pito Patterson Work Phone: [facility] 06-01-2024 16:00-0400 Inhaled oxygen concentration 4 % MD Pito Patterson Work Phone: [facility] 06-01-2024 16:00-0400 Respiratory rate 20 /min MD Pito Patterson Work Phone: [facility] 06-01-2024 16:00-0400 SaO2% (BldA) [Mass fraction] 99 % MD Pito Patterson Work Phone: [facility] 06-01-2024 16:00-0400 Systolic blood pressure 121 mm[Hg] MD Pito Patterson Work Phone: [facility] 06-01-2024 13:16-0400 Inhaled oxygen flow rate 4 L/min MD Pito Patterson Work Phone: [facility] 06-01-2024 13:02-0400 Body height 162.56 cm MD Pito Patterson Work Phone: [facility] 06-01-2024 13:02-0400 Body temperature 97.5 [degF] MD Pito Patterson Work Phone: [facility] 06-01-2024 13:02-0400 Body weight 98.88 kg MD Pito Patterson Work Phone: [facility] 05-31-2024 14:31-0400 Body height 162.6 cm Connor Crawley DO Work Phone: [facility] 05-31-2024 14:31-0400 Body mass index (BMI) [Ratio] 37.76 kg/m2 Connor Bourgeoisencherri DO Work Phone: [facility] 05-31-2024 14:31-0400 Body weight 99.79 kg Connor Crawley DO Work Phone: [facility] 04-22-2024 09:41-0400 Blood Pressure Location Oni MCKEON [facility] 04-22-2024 09:41-0400 Body temperature 98.6 [degF] Oni MCKEON [facility] 04-22-2024 09:41-0400 Diastolic blood pressure 52 mm[Hg] Oni MCKEON [facility] 04-22-2024 09:41-0400 Heart rate 59 /min Oni MCKEON [facility] 04-22-2024 09:41-0400 Respiratory rate 16 /min Oni MCKEON [facility] 04-22-2024 09:41-0400 Systolic blood pressure 102 mm[Hg] Oni MCKEON [facility] 04-19-2024 14:18-0400 Body height 172.7 cm Tyler Draper MD Work Phone: [facility] 04-19-2024 14:18-0400 Body mass index (BMI) [Ratio] 33.16 kg/m2 Tyler Draper MD Work Phone: [facility] 04-19-2024 14:18-0400 Body temperature 96.8 [degF] Tyler Draper MD Work Phone: [facility] 04-19-2024 14:18-0400 Body weight 98.9 kg Tyler Draper MD Work Phone: [facility] 04-19-2024 14:18-0400 Diastolic blood pressure 66 mm[Hg] Tyler Draper MD Work Phone: [facility] 04-19-2024 14:18-0400 Heart rate 85 /min Tyler Draper MD Work Phone: [facility] 04-19-2024 14:18-0400 Respiratory rate 20 /min Tyler Draper MD Work Phone: [facility] 04-19-2024 14:18-0400 SaO2% (BldA) [Mass fraction] 92 % Tyler Draper MD Work Phone: [facility] 04-19-2024 14:18-0400 Systolic blood pressure 120 mm[Hg] Tyler Draper MD Work Phone: [facility] 03-09-2023 10:50-0400 Blood Pressure Location Oni MCKEON [facility] 03-09-2023 10:50-0400 Diastolic blood pressure 70 mm[Hg] Oni MCKEON [facility] 03-09-2023 10:50-0400 Heart rate 71 /min Oni MCKEON [facility] 03-09-2023 10:50-0400 Respiratory rate 16 /min Oni MCKEON [facility] 03-09-2023 10:50-0400 Systolic blood pressure 109 mm[Hg] Oni MCKEON [facility] 01-09-2022 13:00-0400 Body height 172.7 cm Hosea Herrera MD Work Phone: [facility] 01-09-2022 13:00-0400 Body temperature 97.81 [degF] Hosea Herrera MD Work Phone: [facility] 01-09-2022 13:00-0400 Body weight 100.61 kg Hosea Herrera MD Work Phone: [facility] 01-09-2022 13:00-0400 Diastolic blood pressure 68 mm[Hg] Hosea Herrera MD Work Phone: [facility] 01-09-2022 13:00-0400 Heart rate 93 /min Hosea Herrera MD Work Phone: [facility] 01-09-2022 13:00-0400 Respiratory rate 18 /min Hosea Herrera MD Work Phone: [facility] 01-09-2022 13:00-0400 SaO2% (BldA) [Mass fraction] 93 % Hosea Herrera MD Work Phone: [facility] 01-09-2022 13:00-0400 Systolic blood pressure 95 mm[Hg] Hosea Herrera MD Work Phone: [facility] 11-19-2021 10:19-0400 Blood Pressure Location Romeo Vidal Jr. [facility] 11-19-2021 10:19-0400 Diastolic blood pressure 60 mm[Hg] Romeo Vidal Jr. [facility] 11-19-2021 10:19-0400 Heart rate 80 /min Romeo Vidal Jr. [facility] 11-19-2021 10:19-0400 Respiratory rate 16 /min Romeo Vidal Jr. [facility] 11-19-2021 10:19-0400 Systolic blood pressure 113 mm[Hg] Romeo Vidal Jr. [facility] Encounters Encounter Date Encounter Type Care Provider Facility Start: 02-15-2026 ambulatory Marlys L Corwin Facility: [facility] Start: 04-24-2025 ambulatory Oni Victor ty:[facility] Start: 02-27-2025 ambulatory [facility] Start: 02-16-2025 End: 02-16-2025 Lab Drop off Marlys L Corwin [facility] Start: 02-16-2025 End: 02-16-2025 ambulatory Marlys L Corwin Facility:[facility] Start: 02-15-2025 End: 02-15-2025 ambulatory Marlys L Corwin Facility:[facility] Start: 02-14-2025 ambulatory Pito Patterson Facility :[facility] Start: 02-02-2025 End: 02-02-2025 Bamboo flowsheet Crys [facility] PA Work Phone: [facility] Start: 02-02-2025 End: 02-02-2025 Bamboo flowsheet [facility] Work Phone: [facility] Start: 02-02-2025 End: 02-02-2025 Office outpatient visit 25 minutes Crys HERNANDEZ Work Phone: [facility] Comment on above: Melanocytic nevus of trunk (Primary Dx); History of SCC (squamous cell carcinoma) of skin; Seborrheic keratosis; Actinic keratosis; Ayala angioma; Other seborrheic dermatitis Start: 02-02-2025 End: 02-02-2025 ambulatory CRYS NORTHEIM Not Available Start: 12-21-2024 ambulatory CONNOR [facility] Start: 11-24-2024 End: 11-24-2024 Follow-up encounter Tyler Draper MD Work Phone: Hematology/Oncology Comment on above: TSH results Start: 11-24-2024 End: 11-24-2024 ambulatory Pito Pattersno Facility:[facility] Start: 11-21-2024 End: 11-21-2024 ambulatory TYLER DRAPER Facility:[facility] Start: 11-21-2024 End: 11-21-2024 Office outpatient visit 25 minutes Tyler Draper MD Work Phone: Hematology/Oncology Comment on above: 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); History of prostate cancer; Acquired hypothyroidism Start: 11-15-2024 End: 11-15-2024 ambulatory TYLER DRAPER Facility:[facility] Start: 11-15-2024 End: 11-15-2024 Subsequent hospital visit by physician Arrival Time Radiology Work Phone: Radiology [facility] Comment on above: Localized enlarged l ymph nodes [R59.0] Start: 10-21-2024 End: 10-21-2024 ambulatory [facility] Start: 10-17-2024 End: 10-28-2024 ambulatory Pito Patterson Facility:CD:[id number] Start: 10-14-2024 End: 10-14-2024 Telephone encounter Tyler Draper MD Work Phone: Hematology/Oncology Comment on above: Orders Start: 08-25-2024 End: 08-25-2024 ambulatory Pito Patterson Facility:[facility] Start: 08-04-2024 End: 08-04-2024 ambulatory CRYS NORTHEIM Not Available Start: 08-04-2024 End: 08-04-2024 Office outpatient visit 15 minutes Crys Taylor PA Work Phone: [facility] Comment on above: Capillary angioma (P rimary Dx); Melanocytic nevus of trunk; Seborrheic keratosis; Actinic keratosis; History of SCC (squamous cell carcinoma) of skin; Lentigo simplex Start: 07-13-2024 End: 07-13-2024 ambulatory MARKUS CERNA Facility:[facility] Start: 06-20-2024 End: 06-20-2024 Bamboo flowsheet [...] surgery center MD Pito Patterson Work Phone: [facility] Start: 06-01-2024 End: 06-01-2024 ambulatory MD Pito Patterson Work Phone: [facility] Work Phone: Start: 05-31-2024 End: 05-31-2024 [...] Start: 05-17-2024 End: 05-17-2024 ambulatory Pito Patterson Facility:[facility] Start: 05-13-2024 End: 05-13-2024 ambulatory [facility] Start: 05-03-2024 End: 05-03-2024 Bamboo flowsheet [...] Not Available Start: 04-29-2024 End: 04-29-2024 ambulatory YTLER DRAPER Facility:[facility] Start: 04-29-2024 End: 04-29-2024 Subsequent hospital visit by physician Arrival Time Radiology Work Phone: Radiology [facility] CT Comment on above: History of lymphoma [Z85.72] Start: 04-26-2024 End: 04-26-2024 ambulatory CONNOR [facility] Start: 04-22-2024 End: 04-22-2024 ambulatory Oni MCKEON Facility:[facility] Start: 04-22-2024 End: 04-22-2024 Patient encounter procedure Oni MCKEON [facility] Start: 04-19-2024 End: 04-19-2024 Patient encounter procedure Tyler Draper MD Work Phone: Hematology/Oncology Start: 04-19-2024 End: 04-19-2024 ambulatory Tyler Draper MD Work Phone: Hematology/Oncology Comment on above: 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); History of lymphoma; Lymph node enlargement; Skin lesion of face Start: 04-19-2024 End: 04-26-2024 Telephone encounter Tyler Draper MD [facility] Comment on above: Future Appointment Start: 02-02-2024 Telephone encounter Valerie Wallace Hematology/Oncology Comment on above: Results Start: 01-21-2024 End: 01-21-2024 ambulatory PITO PATTERSON Facility:[facility] Start: 10-19-2023 End: 10-19-2023 Lab Drop off Pito Patterson [facility] Start: 03-31-2023 End: 03-31-2023 Patient encounter procedure Oni MCKEON [facility] Start: 03-09-2023 End: 03-09-2023 Patient encounter procedure Oni MCKEON [facility] Start: 01-26-2023 End: 01-26-2023 Lab Drop off Marlys Olivia [facility] Start: 08-05-2022 Telephone encounter Aby Hernandez RN Hematology/Oncology Comment on above: Results Start: 07-24-2022 Telephone encounter Tyler cadena MD Work Phone: [facility] Comment on above: Appointment Start: 04-22-2022 End: 04-23-[address] WILL SHREWOOD Facility:[facility] Start: 04-16-2022 End: 04-17-[address] [...] Romeo Vidal Jr. [facility] Start: 09-24-2021 End: 09-25-[address] [...] Evaluation and management of inpatient CRESCENCIO FLETCHER Facility:[facility] Procedures Date Procedure Procedure Detail Performing Clinician Start: 02-02-2025 CRYOTHERAPY SKIN LESION Crys Taylor PA Work Phone: Start: 11-15-2024 Ct thorax w/contrast material Tyler Draper MD Work Phone: Start: 11-15-2024 Blood count complete auto&auto difrntl wbc Arabella Nalini RN [facility] Work Phone: Start: 08-04-2024 CRYOTHERAPY SKIN LESION [...] on above: Performed By: #### P SAD ####[facility] [id number] [place], [place] [address]Bu. Trevor Nichols Start: 06-28-2020 INSERT PACE. DUAL [...] DTaP,Tdap,Td Vaccine (2 - Td or Tdap) [facility] Start: 11-16-2027 Diabetes Screening Diabetes Screening [facility] Start: 04-19-2027 Diabetes Screening Diabetes Screening [facility] Start: 01-20-2027 Diabetes Screening Diabetes Screening [facility] Start: 08-03-2025 End: 08-03-2025 Patient encounter procedure 08/03/2025 1:10 PM EST Office Visit [facility] [address] [place] [address] Crys Taylor PA [address] [place] [address] [facility] Start: 07-18-2025 DIABETES SCREEN DIABETES SCREEN [facility] Start: 05-29-2025 End: 05-29-2025 Follow-up encounter 05/29/2025 3:00 PM EDT Visit (SP) Office Hematology/Oncology [address] [place] [address] Ginger Bean APRN.[facility] [employer] [address] [place] [address] 6 month follow up / BRM pt Hematology/Oncology Comment on above: 6 month follow up / BRM pt Start: 05-22-2025 End: 05-22-2025 Patient encounter procedure 05/22/2025 3:30 PM EDT Office Visit [facility] [address] [place] [address] 6 month lab [facility] Comment on above: 6 month lab Start: 02-02-2025 End: 02-02-2025 Patient encounter procedure [facility] Comment on above: Arrived Start: 01-09-2025 DIABETES SCREEN DIABETES SCREEN [facility] Start: 11-21-2024 End: 11-21-2024 Follow-up encounter 11/21/2024 3:20 PM EDT Visit (SP) Office Hematology/Oncology [address] [place] [address] Tyler Draper MD [address] [place] [address] 6 Month follow up with lab Hematology/Oncology Comment on above: 6 Month follow up with lab Start: 11-21-2024 End: 11-21-2024 Patient encounter procedure 11/21/2024 3:00 PM EDT Office Visit [facility] [address] [place] [address] 6 Month follow up with lab [facility] Comment on above: 6 Month follow up with lab Start: 11-15-2024 End: 02-14-2025 CBC W Auto Differential panel - Blood COMPLETE BLOOD COUNT AND DIFFERENTIAL Lab Routine Diffuse large B-cell lymphoma, unspecified body region (HCC) Expected: 11/15/2024 (Approximate), Expires: 02/14/[address] [facility] Comment on above: Expected: 11/15/2024 [...] 11-15-2024 End: 02-14-2025 MONOCLONAL PROTEIN, SERUM (BLOOD) [facility] Comment on above: Expected: 11/15/2024 (Approximate), Expi res: 02/14/2025 Start: 11-15-2024 End: 02-14-2025 PROTEIN ELECTROPHORESIS SERUM W/INTERP [facility] Comment on above: Expected: 11/15/2024 (Approximate), Expi res: 02/14/2025 Start: 11-15-2024 End: 11-15-2024 Patient encounter procedure Radiology Pet CT Comment on above: CT Chest with IVC Start: 11-09-2024 Covid-19 Vaccine (7 - Pfizer risk season) Covid-19 Vaccine (7 - Pfizer risk season) [facility] Start: 08-17-2024 Advance Directive Discussion Advance Directive Discussion [facility] Start: 08-04-2024 End: 08-04-2024 Patient encounter procedure 08/04/2024 1:00 PM EST Office Visit [facility] [address] [place] [address] Crys Taylor PA [address] [place] [address] [facility] Start: 07-07-2024 Covid-19 Vaccine ( season) Covid-19 Vaccine ( season) [facility] Start: 06-28-2024 End: 06-28-2024 Patient encounter procedure 06/28/2024 1:00 PM EST Office Visit [facility] [address] [place] [phone] Chiki Malone MD [address] [place] [address] [facility] Start: 06-20-2024 End: 06-20-2024 Patient encounter procedure 06/20/2024 8:45 AM EST Office Visit [facility] [place] [address] [place] [phone] Connor Crawley DO [address] [place] [address] Arrived [facility] [place] Comment on above: Arrived Start: 06-17-2024 End: 06-17-2024 Patient encounter procedure 06/17/2024 1:15 PM EDT Office Visit [facility] [place] [address] [place] [phone] Connor Crawley DO [address] [place] [address] [facility] [place] Start: 06-09-2024 End: 06-09-2024 Patient encounter procedure [facility] [place] Comment on above: Arrived Start: 06-06-2024 End: 06-06-2024 Follow-up encounter 06/06/2024 1:45 PM EDT Visit (SP) Office Hematology/Oncology [address] [place] [address] [place] [address] Tyler Draper MD [address] [place] [address] 6 week follow up Hematology/Oncology Comment on above: 6 week follow up Start: 06-06-2024 End: 06-06-2024 Patient encounter procedure 06/06/2024 1:30 PM EDT Office Visit [facility] [address] [place] [address] 6 week follow up [facility] Comment on above: 6 week follow up Start: 06-01-2024 [facility] Start: 05-31-2024 End: 05-31-2024 Patient encounter procedure 05/31/2024 2:30 PM EDT Office Visit [facility] [address] [place] [phone] Connor Crawley S, DO [address] [place] [address] 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 [facility] Comment on above: Squamous cell cancer of skin of left vibha ek Start: 05-03-2024 End: 05-03-2024 Patient encounter procedure 05/03/2024 11:00 AM EDT Office Visit [facility] [address] [place] [address] Crys Taylor PA [address] [place] [address] Arrived [facility] Comment on above: Arrived Start: 04-29-2024 End: 04-29-2024 Patient encounter procedure 04/29/2024 1:30 PM EDT Appointment Radiology [facility] [address] [place] [address] Comment on above: Pet scan Start: 04-19-2024 End: 04-19-2024 ambulatory 04/19/2024 2:30 PM EDT Visit (SP) Office Hematology/Oncology [address] [place] [address] Tyler Draper MD [address] [place] [address] 6 month lab Hematology/Oncology Comment on above: 6 month lab Start: 04-19-2024 End: 04-19-2024 Patient encounter procedure 04/19/2024 2:15 PM EDT Office Visit [facility] [address] [place] [address] 6 month lab [facility] Comment on above: 6 month lab Start: 04-19-2024 End: 07-19-2024 MONOCLONAL PROTEIN, SERUM (BLOOD) [facility] Comment on above: Expected: 04/19/2024, Expires: Start: 04-19-2024 End: 07-19-2024 PROT ELECT SERUM WITH CARSON AND INTERP [facility] Work Phone: Comment on above: Expected: 04/19/2024, Expires: Start: 04-17-2024 Covid-19 Vaccine ( season) Covid-19 Vaccine ( season) [facility] Start: 04-17-2024 Influenza vaccination Influenza Vaccine (#1) [facility] Start: 08-27-2023 Covid-19 Vaccine ( season) Covid-19 Vaccine ( season) [facility] Start: 08-17-2023 Advance Directive Discussion Advance Directive Discussion [facility] Start: 08-17-2023 Behavioral Health Screening Behavioral Health Screening [facility] Start: 01-09-2023 Adult depression screening assessment DEPRESSION SCREENING [facility] Start: 07-18-2022 End: 09-17-2022 CBC [...] VACCINE (5 - Booster for Pfizer series) [facility] Start: 04-17-2022 Influenza vaccination INFLUENZA (#1) [facility] Start: 09-25-2021 COVID-19 VACCINE (4 - Booster for Pfizer series) COVID-19 VACCINE (4 - Booster for Pfizer series) [facility] Start: 08-17-2021 ADVANCE DIRECTIVE DISCUSSION ADVANCE DIRECTIVE DISCUSSION [facility] Start: 08-17-2021 DEPRESSION ASSESSMENT DEPRESSION ASSESSMENT [facility] Start: 2007 RSV Vaccine (1 - 1-dose 60+ series) RSV Vaccine (1 - 1-dose 60+ series) [facility] Start: 1997 SHINGRIX VACCINE (1 of 2) SHINGRIX VACCINE (1 of 2) [facility] Start: 1992 COLOGUARD (FIT-DNA) COLOGUARD (FIT-DNA) [facility] Start: 1992 Colonoscopy COLONOSCOPY [facility] Start: 1992 COLORECTAL CANCER SCREENING COLORECTAL CANCER SCREENING [facility] Start: [address] COLONOGRAPHY [facility] Start: 1992 FECAL OCCULT BLOOD FECAL OCCULT BLOOD [facility] Start: 1992 SIGMOIDOSCOPY SIGMOIDOSCOPY [facility] Start: 1982 LIPID SCREEN LIPID SCREEN [facility] Start: 1966 SHINGRIX VACCINE (1 of 2) SHINGRIX VACCINE (1 of 2) [facility] Start: 1966 Urine microalbumin profile DTAP,TDAP,TD (1 - Tdap) [facility] Start: 1965 Anxiety Screening Anxiety Screening [facility] Start: 1965 Depression Screening Depression Screening [facility] Start: 1965 HEPATITIS C SCREENING HEPATITIS C SCREENING [facility] Start: 1965 Hepatitis C screening Hepatitis C Screening [facility] Start: 1947 ABDOMINAL AORTIC ANEURYSM SCREENING ABDOMINAL AORTIC ANEURYSM SCREENING [facility] Start: 1947 Medicare Annual Wellness (AWV) Medicare Annual Wellness (AWV) [facility] CBC W Auto Different ial panel - Blood CBC + DIFF Lab Routine B12 deficiency Diffuse large B-cell lymphoma, unspecified body region (HCC) 01/09/2022 1:40 PM EDT [facility] Work Phone: Dermatopathology exam Dermatopat hology exam Pathology and Cytology Timed Neoplasm of unspecified behavior of bone, soft tissue, and skin Release Upon Ordering for 1 Occurrences starting 05/03/2024 [facility] [employer] Work Phone: Comment on above: Release Upon Ordering for 1 Occurrences starting 05/03/2024 End: 11-15-2024 IMMUNOFIXATION SCREEN, SERUM [facility] Comment on above: Once for 1 Occurrences starting 11/16/19 until 11/15/2024 End: 11-15-2024 IMMUNOGLOBULINS,IGG,IGA,I GM [facility] Comment on above: Once for 1 Occurrences starting 11/16/19 until 11/15/2024 End: 11-15-2024 KAPPA/ARDON,FREE,SER [facility] Comment on above: Once for 1 Occurrences starting 11/16/19 until 11/15/2024 Patient Education Know your Meds [facility] Work Phone: Patient referral [facility] Work Phone: End: 05-19-2025 PET+CT Guidance for localization of tumor of Skull base to mid-thigh-- W 18F-FDG IV NM PET/CT SKULL-THIGH SUBSEQUENT Radiology Routine History of lymphoma Lymph node enlargement 1 Occurrences starting 04/19/2024 until 05/19/[address] [facility] Comment on above: 1 Occurrences [...] for 1 Occurrences starting 11/16/19 until 11/15/2024 [facility] Immunizations Immunization Date Immunization Notes Care Provider [facility] 05-12-2024 influenza, high dose seasonal, preservative-free Connor Crawley DO Work Phone: [facility] 05-12-2024 SARS-CoV-2 mRNA (tozinameran 5y-11y) vaccine Marlys Olivia [facility] Comment on above: Result Comment: COvi d 19 mRNA, LN-S pfizer trus sucrose 05-12-2024 influenza virus vaccine, unspecified formulation Connor Crawley DO Work Phone: [facility] 03-21-2024 canakinumab Oni MCKEON [facility] Comment on above: Result Comment: RSV 03-21-2024 respiratory syncytia l virus (RSV) vaccine, adjuvanted (AREXVY) Tyler Draper MD Work Phone: [facility] 03-21-2024 RSV vaccine preF3, recombinant Marlys Corwin [facility] 07-02-2023 SARS-CoV-2 mRNA (tozinameran 5y-11y) vaccine Pito Patterson [facility] Comment on above: Result Comment: covi d 19 eneida sucrose [facility] 05-11-2023 influenza, high dose seasonal, preservative-free Pito Patterson [facility] 05-11-2023 influenza virus vaccine, unspecified formulation Tyelr Draper MD Work Phone: [facility] 03-11-2022 SARS-CoV-2 mRNA (flxiexjqvnq-mxfv-gqxit se) vaccine Marlys Corwin [facility] 06-25-2021 SARS-CoV-2 (COVID-19 ) mRNA BNT-162b2 vax Marlys Corwin [facility] 05-24-2021 influenza (HD-IIV4) vaccine, age 65+ yr, high dose, quadrivalent, PF (FLUZONE HIGH-DOSE) Tyler Draper MD Work Phone: [facility] 05-24-2021 influenza virus vaccine, unspecified formulation Marlys Corwin [facility] 11-13-2020 COVID-19 vaccine, ag e 12+ yr (PFIZER-BIONTECH - PURPLE TOP) Hosea Herrera MD Work Phone: [facility] 10-22-2020 COVID-19 vaccine, ag e 12+ yr (PFIZER-BIONTECH - PURPLE TOP) Hosea Herrera MD Work Phone: [facility] 07-24-2020 zoster vaccine recombinant Marlys Corwin [facility] 07-22-2020 zoster vaccine recombinant Tyler Draper MD Work Phone: [facility] 05-09-2020 influenza (HD-IIV4) vaccine, age 65+ yr, high dose, quadrivalent, PF (FLUZONE HIGH-DOSE) Tyler Draper MD Work Phone: [facility] 05-09-2020 influenza virus vaccine, unspecified formulation Marlys Corwin [facility] 05-09-2020 tetanus toxoid, redu juvencio diphtheria toxoid, and acellular pertussis vaccine, adsorbed Marlys Corwin [facility] 05-09-2020 zoster vaccine recombinant Marlys Corwin [facility] 04-16-2019 influenza virus vaccine, unspecified formulation Marlys Corwin [facility] 04-16-2019 Seasonal trivalent influenza vaccine, adjuvanted, preservative free Tyler Draper MD Work Phone: [facility] 05-25-2018 influenza nasal, unspecified formulation Tyler Draper MD Work Phone: [facility] 05-25-2018 influenza virus vaccine, unspecified formulation Marlys Corwin [facility] 05-25-2018 influenza, injectabl e, quadrivalent, preservative free Hosea Herrera MD Work Phone: [facility] 05-25-2018 pneumococcal polysaccharide vaccine, 23 valent Hosea Herrera MD Work Phone: [facility] 04-26-2018 influenza nasal, unspecified formulation Tyler Draper MD Work Phone: [facility] 04-26-2018 influenza virus vaccine, unspecified formulation Marlys Corwin [facility] 04-26-2018 influenza, high dose seasonal, preservative-free Hosea Herrera MD Work Phone: [facility] 04-26-2018 pneumococcal polysaccharide vaccine, 23 valent Hosea Herrera MD Work Phone: [facility] 08-04-2017 influenza nasal, unspecified formulation Tyler Draper MD Work Phone: [facility] 08-04-2017 influenza virus vaccine, unspecified formulation Marlys Appiahab [facility] 08-04-2017 influenza, high dose seasonal, preservative-free Hosea Herrera MD Work Phone: [facility] 08-04-2017 pneumococcal conjuga te vaccine, 13 valent Hosea Herrera MD Work Phone: [facility] influenza vaccine qs 240 mcg, Patients 65 years and older,, PF, (FLUZONE HIGHDOSE QUAD 20-21 PF) 240 mcg/0.7 mL injection Hosea Herrera MD Work Phone: [facility] Comment on above: Fluzone High-Dose Qu ad 2020-21 (PF) 240 mcg/0.7 mL IM syringe PHARMACY ADMINISTERED influenza vaccine qs 240 mcg, Patients 65 years and older,, PF, (FLUZONE HIGHDOSE QUAD 20-21 PF) 240 mcg/0.7 mL injection Tyler Draper MD Work Phone: [facility] Comment on above: Fluzone High-Dose Qu ad 2020-21 (PF) 240 mcg/0.7 mL IM syringe PHARMACY ADMINISTERED influenza vaccine qs 240 mcg, Patients 65 years and older,, PF, (FLUZONE HIGHDOSE QUAD 20-21 PF) 240 mcg/0.7 mL injection Valerie Mayes RN [facility] influenza vaccine qs 240 mcg, Patients 65 years and older,, PF, (FLUZONE HIGHDOSE QUAD 20-21 PF) 240 mcg/0.7 mL injection Tyler Draper MD Work Phone: [facility] influenza vaccine qs 240 mcg, Patients 65 years and older,, PF, (FLUZONE HIGHDOSE QUAD 20-21 PF) 240 mcg/0.7 mL injection Tyler Draper MD Work Phone: [facility] influenza vaccine qs 240 mcg, Patients 65 years and older,, PF, (FLUZONE HIGHDOSE QUAD 20-21 PF) 240 mcg/0.7 mL injection [facility] Work Phone: [facility] Payers Date Payer Category Payer Medicare (Managed Care) 1.2. [id number] 2022 Private Health Insurance [id number] 2014 Medicare AETNA MEDICARE A ETNA MEDICARE PPO [id number] 2014-Present [phone] [address] [place] [address] PPO [id number] 2012 Medicare [id number]. [id number] 2012 Medicare [id number] 1959 Medicare [id number] 1959 Private Health Insurance [id number] [id number] Self-pay 1947 Unknown [id number] 2.16.840.1.016669.3.579.2. 647 1947 Unknown [id number] 2.16.840.1.110559.3.579.2. 593 1947 Unknown [id number] 2.16.840.1.637186.3.579.2. 593 1947 Unknown [id number] 2.16.840.1.768040.3.579.2. 593 1947 Unknown [id number] 2.16.840.1.093476.3.579.2. 593 1947 Unknown [id number] 2.16.840.1.881662.3.579.2. 593 1947 Unknown [id number] 2.16.840.1.023591.3.579.2. 593 1947 Unknown [id number] 2.16.840.1.582686.3.579.2. 593 1947 Unknown [id number] 2.16.840.1.638106.3.579.2. 593 1947 Unknown [id number] 2.16.840.1.681249.3.579.2. 593 1947 Unknown [id number] 2.16.840.1.849421.3.579.2. 593 1947 Unknown [id number] 2.840.1.942965.3.579.2. 593 1947 Unknown [id number] 2.16840.1.032270.3.579.2. 593 1947 Unknown [id number] 2.16.840.1.678955.3.579.2. 593 1947 Unknown [id number] 2.16840.1.575154.3.579.2. 593 1947 Unknown [id number] 2.840.1.622452.3.579.2. 593 1947 Unknown [id number] 2.16.840.1.693868.3.579.2. 593 1947 Unknown [id number] 2.16.840.1.041347.3.579.2. 593 1947 Unknown [id number] 2.16.840.1.236403.3.579.2. 593 1947 Unknown [id number] 2.16.840.1.485317.3.579.2. 593 1947 Unknown [id number] 2.16.840.1.254446.3.579.2. 593 1947 Unknown [id number] 2.16.840.1.648114.3.579.2. 1259 1947 Unknown [id number] 2.16.840.1.285672.3.579.2. 1259 1947 Unknown [id number] 2.16.840.1.256091.3.579.2. 125 1947 Unknown [id number] 2.16.840.1.218053.3.579.2. 125 1947 Unknown [id number] 2.16.840.1.247143.3.579.2. 125 1947 Unknown [id number] 2.16.840.1.709614.3.579.2. 1258 1947 Unknown [id number] 2.840.1.350370.3.579.2. 1947 Unknown [id number] 2.16.840.1.591924.3.579.2. 1947 Unknown [id number] 2.16.840.1.745221.3.579.2. 1947 Unknown [id number] 2.16840.1.986168.3.579.2. 72 1947 Unknown [id number] 2.16840.1.866470.3.579.2. 72 1947 Unknown [id number] 2.16.840.1.932639.3.579.2. 72 1947 Unknown [id number] 2.16.840.1.568567.3.579.2. 1947 Unknown [id number] 2.16.840.1.804218.3.579.2. 72 1947 Unknown [id number] 2.16840.1.538052.3.579.2. 727 1947 Unknown [id number] 2.16.840.1.446440.3.579.2. 727 1947 Unknown [id number] 2.16.840.1.396407.3.579.2. 727 1947 Unknown [id number] 2.16.840.1.528141.3.579.2. 727 1947 Unknown [id number] 2.16.840.1.191425.3.579.2. 72 Medicare Medicare Outpatient [id number] Unknown [id number] 2.16.840.1.590122.3.579.2. 593 Unknown Karl BC/BS [id number] Unknown [id number] 2.16.840.1.275841.3.579.2. 531 Social History Date Type Detail Facility Start: 11-19-2021 End: 02-15-2025 Tobacco smoking status Ex-smoker (finding) [facility] Comment on above: Patient states he sm oked cigarettes, 1 PPD from about 22 years old until about 42 years old. denies use. Former s moker. Quit 1987. Start: 07-30-2023 End: 08-04-2024 Sex Assigned At Male [facility] Start: 09-06-1968 End: 09-06-1988 History of tobacco use Current smoker [facility] Start: 09-06-2012 End: 08-04-2024 Cigarettes smoked current (pack per day) - Reported [address] [facility] Start: 09-06-2012 End: 05-03-2024 Tobacco use and exposure Smokeless tobacco non-user [facility] Start: 01-09-2022 End: 11-21-2024 Alcohol intake Current drinker of alcohol (finding) [facility] Start: 04-05-2019 History SDOH Alcohol Comment rare [facility] Start: 1945 Sex Assigned At Not on file C [facility] Start: 12-30-2021 End: 01-09-2022 Exposure to SARS-CoV-2 (event) Not sure [facility] Start: 09-06-1968 End: 09-06-1988 History of tobacco use Cigarette Smoker [facility] History of tobacco use Passive smoker [facility] Tobacco smoking status Never [facility] [place] Comment on above: Patient states he sm oked cigarettes, 1 PPD from about 22 years old until about 42 years old. denies use. Former s moker. Quit 1987. Start: 05-03-2024 End: 02-02-2025 Alcoholic beverage intake Defer [facility] Start: 1945 Sex Assigned At Male F [facility] smoking consumption unknown [facility] Healthcare Sexual Orientation [facility] Start: 11-01-2016 Sex Male (finding) [facility] NEGATED: Highlighted rowStart: NINF History of tobacco use Passive smoker [facility] Goals Date Patient Goal Desired Activity /State Functional Status Date Assessment Result Facility 04-22-2024 Functional Status N/A [facility] 03-09-2023 Functional Status N/A [facility] 02-19-2015 Are you deaf, or do you have serious difficulty hearing No 02/19/2015 11:13 AM Otilia Mejía No [facility] 02-19-2015 Are you blind, or do you have serious difficulty seeing, even when wearing glasses No 02/19/2015 11:13 AM Otilia Mejía No [facility] 02-19-2015 Do you have serious difficulty walking or climbing stairs No 02/19/2015 11:13 AM Otilia Mejía No [facility] 02-19-2015 Do you have difficul ty dressing or bathing Yes 02/19/2015 11:13 AM Otilia Mejía Yes [facility] 02-20-2014 Because of a physica l, mental, or emotional condition, do you have difficulty doing errands alone such as visiting a physician's office or shopping No 02/20/2014 11:24 AM EDT Mario Otilia No [facility] Mental Status Date Assessment Result Facility 02-19-2015 Because of a physica l, mental, or emotional condition, do you have serious difficulty concentrating, remembering, or making decisions No 02/19/2015 11:13 AM EDT Mario Otilia No [facility] Clinical Notes 11-19-2021 to 02-15-2025 [...] Follow these instructions at home: ??? Take [id number]-mem-xaihntn and prescription medicines only as told by [...] provider. Document Revised: 08/05/2022 Document Reviewed: 08/05/2022 [employer] Patient Education ? 2023 [employer]. Screening for Type 2 Diabetes A screening test for type 2 diabetes (type 2 diabetes mellitus) is a blood test to measure your blood sugar (glucose) level. This test is done to check for early signs of diabetes, before you develop symptoms (more content not included)... [facility] 02-02-2025 History of Present illness [...] limited to risks of scarring, darker or motorcycle repairer pigmentary changes, recurrence, incomplete removal and infection. [...] Visit: 6 months documented in this encounter [facility] 11-24-2024 Telephone encounter Note Pt notified of BRM message below. She is agreeable to follow up with PCP, to discuss US. She denies any questions, needs or concerns at this time. Labs faxed to PCP, Dr Navarro Mayes RN [facility] 11-24-2024 Miscellaneous Notes Pt notified of BRM message below. She is agreeable to follow up with PCP, to discuss US. She denies any questions, needs or concerns at this time. Labs faxed to PCP, Dr Navarro Mayes, RN documented in this encounter [facility] 11-21-2024 Note HNO ID: [id number] Author: YOLANDA MONTAGUE MA Service: ? Author Type: Assistant Designer Type: Progress Notes Filed: 11/23/2024 09:37 Note Text: Pt very short of breath. Has oxygen at home. But declined using our oxygen.Yolanda Montague MA [facility] 11-21-2024 History of Present illness Narrative Pt very short of breath. Has oxygen at home. But declined using our oxygen.Yolanda Montague MA PATIENT NAME: Chiki FERNANDON: [id number] DATE: 11/21/2024 PRIMARY CARE PHYSICIAN: Dr. Pito [...] influenza A infection and was hospitalized at [facility]. Apparently his symptoms were severe enough that [...] or inguinal regions. PATHOLOGY: 06/01/2024 Skin resection ([facility] [place] [place] A. Skin lesion from left cheek: Recent [...] active disease. 02/01/2024 Bilateral lower extremity Doppscan ([facility]) The RIGHT lower extremity was imaged, [...] Trans x 2.56 cm Sagittal. 12/31/2023 CXR ([facility]) IMPRESSION: 1. No significant interval change and no new or worsening airspace disease. No pleural effusion or pneumothorax. 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 2. Stable cardiomediastinal silhouette. 3. Left chest wall CIED with leads in the right atrium and right ventricle. 4. Unchanged compression deformity in the mid thoracic spine. 09/24/2021 Skeletal bone survey ([facility]) No lytic lesions suggestive of multiple myeloma [...] random TRUS prostate biopsies with prostate adenocarcinoma, [place] 4+3, 3 cores involved out of 9, [...] PCP and pulmonary (Dr. Mayra Berg at [facility]). 6. History of hypothyroidism The patient [...] Dr. Jb Patterson, PCP Dr. Mayra Berg, Geneticist at [facility] documented in this encounter [facility] 11-19-2024 Note HNO ID: [id number] Author: TYLER DRAPER MD Service: ? Author [...] influenza A infection and was hospitalized at [facility]. Apparently his symptoms were severe enough that [...] PATIENT PRESENTS WITH AN IMPLANTABLE OR ATTACHED FIELD SPECIALIST: No RADIOLOGY DEPARTMENT: CT; Exam(s) Completed: Chest PERIPHERAL IV DATA: Site assessment: Clean,Dry and Intact, Site disposition Discontinued SIGNED BY: RT Sonya(R) November 15, 2024 3:18 PM documented in this encounter [facility] 11-15-2024 Note HNO ID: [id number] Author: BROOK DONALDSON RT(R) Service: ? Author [...] PATIENT PRESENTS WITH AN IMPLANTABLE OR ATTACHED FIELD SPECIALIST: No RADIOLOGY DEPARTMENT: CT; Exam(s) Completed: Chest PERIPHERAL IV DATA: Site assessment: Clean,Dry and Intact, Site disposition Discontinued SIGNED BY: RT Sonya(Melodie) November 15, 2024 3:18 PM [facility] 11-15-2024 Note HNO ID: [id number] Author: MEG MCFARLAND RN Service: ? Author [...] 2:32 PM [facility] 10-21-2024 Note [place] [facility] Subjective Chiki Juarez is a 79 y.o. year old male patient being seen for follow up [facility]. EKG from the ED was questionable for [...] is not of a cardiac etiology. His concrete vibrator operator was treating him with steroids. He also underwent walk test in September 2023 during which his oxygen dropped significantly. He previously underwent further evaluation at [facility] pulmonology and his follow-up PFTs showed improvement. He also had upper and lower extremity duplex venous ultrasounds and VQ scan of the lungs in January 2024 which were negative. He was admitted to the hospital at [place] on 10/11/2024 due to COPD exacerbation and [...] cough and shortnes (more content not included)... [facility] 10-14-2024 Telephone encounter Note Please sign pended labs for 6 month f/u if agreeable-will draw with CT 1 week prior Thank You! Gloria Weinberg, RN [facility] 10-14-2024 Miscellaneous Notes Please sign pended labs for 6 month f/u if agreeable-will draw with CT 1 week prior Thank You! Gloria Weinberg RN documented in this encounter [facility] 08-04-2024 History of Present illness [...] limited to risks of scarring, darker or motorcycle repairer pigmentary changes, recurrence, incomplete removal and infection. [...] months, skin check documented in this encounter [facility] 06-20-2024 History of Present illness Narrative [...] significance) 09/09/2023 Microscopic hematuria 05/21/2023 Mixed hyperglyceridemia ([facility] 05/23/2022 Moderate persistent asthma without complication ([facility]) 05/31/2024 Nasal congestion 05/21/2023 Neuropathy, arm 05/21/2023 Obesity due to excess calories 05/31/2024 JUANA (obstructive sleep apnea) 04/15/2024 Other chronic pain 05/31/2024 Poor urinary stream 05/21/2023 Prostate nodule 05/21/2023 Pulmonary hypertension ([facility]) 07/02/2023 Noted in 05/21/2023 [place] page 1, added per outpatient CDI policy. 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[facility]) 07/02/2023 Recurrent pneumonia 07/17/2021 Severe obesity (BMI 35.0-39.9) with comorbidity ([facility]) 08/03/2020 Ventral [...] Partner Violence: Unknown (10/08/2023) Received from [facility] Fear of [...] of distress Assessment/Plan documented in this encounter [facility] 06-13-2024 Telephone encounter Note Patient is scheduled 11/15/24 at 1:30 PM Shea Kolb PSS [facility] 06-13-2024 Miscellaneous Notes Patient is scheduled 11/15/24 at 1:30 PM Shea Kolb PSS notified and transferred to [facility] to schedule CT as recommended prior to return visit with BRM. Valerie Mayes RN A voicemail was left on Chiki's phone to return our call to schedule a CT for November. Shea Kolb PSS Dr Mayra Berg, [facility] called and spoke with BRM yesterday [...] Valerie Mayes RN documented in this encounter [facility] 06-13-2024 Telephone encounter Note notified and transferred to PSS to schedule CT as recommended prior to return visit with BRM. Valerie Mayes RN [facility] 06-10-2024 Telephone encounter Note A voicemail was left on Chiki's phone to return our call to schedule a CT for November. Shea Kolb PSS [facility] 06-10-[address] Mayra Berg, [facility] called and spoke with BRM yesterday [...] to return visit 11/21/24 Valerie Mayes RN [facility] 06-09-2024 History of Present illness [...] for 10 days. documented in this encounter [facility] 06-05-2024 Note HNO ID: [id number] Author: TYLER DRAPER MD Service: ? Author [...] active disease. 02/01/2024 Bilateral lower extremity Doppscan ([facility]) The RIGHT lower extremity was imaged, [...] Trans x 2.56 cm Sagittal. 12/31/2023 CXR ([facility]) IMPRESSION: 1. No significant interval change and no new or worsening airspace disease. No pleural effusion or pneumothorax. 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 2. Stable cardiomediastinal silhouette. 3. Left chest wall CIED with leads in the right atrium and right ventricle. 4. Unchanged compression deformity in the mid thoracic spine. 09/24/2021 Skeletal bone survey ([facility]) No lytic lesions suggestive of multiple myeloma [...] random TRUS prostate biopsies with prostate adenocarcinoma, [place] 4+3, 3 cores involved out of 9, [...] PCP and pulmonary (Dr. Mayra Berg at [facility]). 6. History of hypothyroidism Continue management [...] Tyler Draper MD CC: Dr. Mayra Berg, Geneticist at [facility] documented in this encounter [facility] 05-31-2024 History of Present illness [...] Partner Violence: Unknown (10/08/2023) Received from [facility] Fear of Current or [...] He fully understands. documented in this encounter [facility] 05-17-2024 Note Patient Education Nutrition BMI [...] for Disease Control and Prevention: cdc.gov ? [place] [employer]: heart.org ? National Heart, Lung, and Blood [place]: nhlbi.nih.gov This information is not intended to replace advice given to you by your health care provider. Make sure you discuss any questions you have with your health care provider. Document Revised: 04/23/2023 Document Reviewed: 04/16/2023 [employer] Patient Education ? 2023 [employer]. [facility] 05-13-2024 Note [place] [facility] Subjective Chiki Juarez is a 79 y.o. year old male patient being seen for 6 mo follow up c,CANO, hyperlipidemia, and complete AV block s/p PPM. His device was interrogated a few weeks ago in the office. He has completed pulmonary rehab. Says his SOB has slightly improved since last visit in October 2023. His concrete vibrator operator at [facility] told him his PFT's had slightly improved [...] is not of a cardiac etiology. His concrete vibrator operator was treating him with steroids. He also underwent walk test in September 2023 during which his oxygen dropped significantly. He recently underwent further evaluation at [facility] pulmonology and his follow-up PFTs showed [...] Objective Visit Vitals (more content not included)... [facility] 05-03-2024 History of Present illness Narrative Images [...] limited to risks of scarring, darker or motorcycle repairer pigmentary changes, recurrence, incomplete removal and infection. [...] mo th FBSE documented in this encounter [facility] 04-29-2024 History of Present illness Narrative [...] PM PAGER/CONTACT #: documented in this encounter [facility] 04-29-2024 Note HNO ID: [id number] Author: GLORIA WEINBERG RN Service: ? Author [...] [facility] 04-29-2024 Note HNO ID: [id number] Author: BROOK DONALDSON RT(R) Service: ? Author [...] with MARY Simmons on 05/03/24 @ 11:00. [facility] 04-26-2024 Miscellaneous Notes Patient is scheduled with MARY Simmons on 05/03/24 @ 11:00. Records faxed to [facility] Derm[facility]ology. Rhona: Information ready for you. Jennie Velasquez Please ref patient to [facility] Dermatology. Dx Skin Lesion blaise facial area. Their office to call the patient to schedule/ Rhona, Please fax records Julius, Please follow up on this appt. documented in this encounter [facility] 04-22-2024 Hospital Discharge instructions Patient [...] treatment? Where to find more information The [place] [employer]: www.cancer.org [place] [employer]: www.auanet.org Contact a health care [...] provider. Document Revised: 01/27/2022 Document Reviewed: 01/27/2022 [employer]eno[employer] Patient Education 2023 [employer]. Follow Up Care 03/09/2023 12:17:11 With:MIKE VENTURA, Oni Sewell, URL Address: [facility] [address] [place] [address]- [phone] When: Unknown [facility] 04-22-2024 Note Patient Education Oncology Prostate [...] Where to find more information ? The [place] [employer]: www.cancer.org ? [place] [employer]: www.auanet.org Contact a health care [...] of the rectum. (more content not included)... [facility] 04-20-2024 Telephone encounter Note Records faxed to [facility]. [facility] 04-20-2024 Telephone encounter Note Rhona: Information ready for you. Jennie Velasquez [facility] 04-19-2024 Telephone encounter Note Please ref patient to [facility]. Dx Skin Lesion blaise facial area. Their office to call the patient to schedule/ Rhona, Please fax records Julius, Please follow up on this appt. [facility] 04-18-2024 Note HNO ID: [id number] Author: TYLER DRAPER MD Service: ? Author Type: Physician Type: Progress Notes Filed: 04/20/2024 09:45 Note Text: PATIENT NAME: Chiki Juarez DATE: 04/19/2024 PRIMARY CARE PHYSICIAN: Dr. Pito Patterson OTHER PHYSICIANS: Dr. Mayra eBrg ([facility]) Portions of this encounter note [...] visit here 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 For [...] visit here 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 For [...] RADIOLOGY/OTHER STUDIES: 02/01/2024 Bilateral lower extremity Doppscan ([facility]) The RIGHT lower extremity was imaged, [...] Trans x 2.56 cm Sagittal. 12/31/2023 CXR ([facility]) IMPRESSION: 1. No significant interval change and no new or worsening airspace disease. No pleural effusion or pneumothorax. 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 2. Stable cardiomediastinal silhouette. 3. Left chest wall CIED with leads in the right atrium and right ventricle. 4. Unchanged compression deformity in the mid thoracic spine. 09/24/2021 Skeletal bone survey ([facility]) No lytic lesions suggestive of multiple myeloma [...] random TRUS prostate biopsies with prostate adenocarcinoma, Charlotte 4+3, 3 cores involved out of 9, [...] PCP and pulmonary (Dr. Mayra Berg at [facility]). 6. History of hypothyroidism Continue management [...] Tyler Draper MD CC: Dr. Mayra Berg, Geneticist at [facility] documented in this encounter [facility] 02-02-2024 Telephone encounter Note Pt informed of [email or web address] Application message and denies any questions, needs or concerns at this time. Appointment verified. Valerie Mayes RN [facility] 02-02-2024 Miscellaneous Notes Pt informed of BRM message and denies any questions, needs or concerns at this time. Appointment verified. Valerie Mayes RN ----- Message from Tyler Draper MD sent at 02/02/2024 8:08 AM EDT ----- Please inform the patient that his labs are stable. We will continue observation and see him back as scheduled. documented in this encounter [facility] 02-02-2024 Telephone encounter Note ----- Message from Tyler Draper MD sent at 02/02/2024 8:08 AM EDT ----- Please inform the patient that his labs are stable. We will continue observation and see him back as scheduled. [facility] 03-31-2023 Hospital Discharge instructions Patient [...] [facility] [address] [place] [address]- Business (1) When:03/31/2024 11:58:05 Comments:With a renal ultrasound [facility] 03-09-2023 Hospital Discharge instructions Patient Education [...] urethra. Follow these instructions at home: Take hxbn-jnr-rtkqvnv and prescription medicines only as told by [...] provider. Document Revised: 02/19/2022 Document Reviewed: 02/19/2022 ZenoLink Patient Education 2022 [employer]. Follow Up Care 02/13/2023 11:39:29 With:MIKE VENTURA, Oni Sewell, URL Address: [facility] [address] [place] [address]- [phone] When: Unknown Comments:schedule cysto and renal US1 yr w/ PSA [facility] [place] 08-05-2022 Miscellaneous Notes Informed pt of Dr Draper's message. Pt verbalized understanding and denies further needs at this time. Aby Hernandez RN ----- Message from Tyler Draper MD sent at 08/04/2022 12:29 PM EST ----- Please inform the patient that his PSA is stable at 0.26. We will continue as planned. Thanks, BRM documented in this encounter [facility] 07-25-2022 Miscellaneous Notes Spoke to [...] awhile please advise documented in this encounter 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 Patient lives in [place], [place] with his , Nicolasa. He has 4 children. He has a 61-lspm-romm smoking history and quit in 1986. He [...] Thus, a bone marrow biopsy would not foreign exchange dealer and it is okay to hold off [...] CC: Will Sherwood documented in this encounter 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 Patient lives in [place], [place] with his , Nicolasa. He has 4 children. He has a 35-jiae-zsra smoking history and quit in 1986. He [...] Thus, a bone marrow biopsy would not foreign exchange dealer and it is okay to hold off for now. PSA stable at 0.30. He will follow up with Dr. Sousa for his history of prostate cancer. Hosea Herrera MD I spent a total of 20 minutes on the date of the service which included preparing to see the patient, boos-tn-ajaz patient care, completing clinical documentation, obtaining and/or reviewing separately obtained history, performing a medically appropriate examination, counseling and educating the patient/family/caregiver, ordering medications, tests, or procedures, independently interpreting results (not separately reported) and communicating results to the patient/family/caregiver. CC: Will Sherwood documented in this encounter [facility] 11-19-2021 Hospital Discharge instructions Patient [...] who: Are older than age 65. Are -[place]ian. Are obese. Have a family history of [...] cells. Follow these instructions at home: Take jidd-cpf-qehejuy and prescription medicines only as told by [...] 08/03/2006 Document Revised: 07/16/2018 Document Reviewed: 04/13/2017 ZenoLink Patient Education 2020 [employer]. Follow Up Care 10/30/2020 10:17:46 With:Young Manriquez MD, Romeo Valles, URO Address: [facility] [address] [place] [address] [phone] When: Unknown [facility] Evaluation + Plan note Future Appointments Appointment Date:11/25/2022 10:15:00 AM Scheduled Provider:Romeo Vidal Jr., MD Location:[facility] Appointment Type:URO Office Visit [facility] Evaluation + Plan note Future Appointments Appointment Date:01/22/2024 11:00:00 AM Scheduled Provider: [facility]FM Medicare Wellness Subsequent Diagnostic Tests PendingT3 Free 01/26/23 [facility] Evaluation + Plan note Future Appointments Appointment Date:03/24/2023 10:00:00 AM Scheduled Provider: Location:[facility] Appointment Type:Urology CALL PAT FT Appointment Date:03/31/2023 11:15:00 AM Scheduled Provider: Location:[facility] Appointment Type:Urology FT Appointment Date:01/22/2024 11:00:00 AM Scheduled Provider: Location:[facility] Appointment Type:FM Medicare Wellness Subsequent Appointment Date:03/14/2024 11:15:00 AM Scheduled Provider:Oni MCKEON MD [facility] Type:URO Office Visit Diagnostic Tests PendingPSA Total 03/09/23 [facility] Evaluation + Plan note Future Appointments Appointment Date:01/22/2024 11:00:00 AM Scheduled Provider: [facility] Type:FM Medicare Wellness Subsequent Appointment Date:03/14/2024 11:15:00 AM Scheduled Provider:Oni MCKEON MD [facility] App[facility] Type:URO Office Visit [facility] Evaluation + Plan note Future Appointments Appointment Date:12/02/2023 01:00:00 PM Scheduled Provider:Pito Patterson MD Location:[facility] Appointment Type:FM Open Appointment Date:01/18/2024 01:00:00 PM Scheduled Provider:Pito Patterson MD Location:[facility] Appointment Type:FM Open Appointment Date:01/22/2024 11:00:00 AM Scheduled Provider: Location:[facility] Appointment Type: Medicare Wellness Subsequent Appointment Date:03/14/2024 11:15:00 AM Scheduled Provider:Oni MCKEON MD Location:[facility] Appointment Type:URO Office Visit [facility] Evaluation + Plan note Future Appointments Appointment Date:05/17/2024 10:00:00 AM Scheduled Provider:Pito Patterson MD Location:[facility] Appointment Type: Open Appointment Date:02/14/2025 08:00:00 AM Scheduled Provider: Location:[facility] Appointment Type: Medicare Wellness Subsequent Appointment Date:04/24/2025 09:45:00 AM Scheduled Provider:Oni MCKEON MD Location:[facility] Appointment Type:URO Office Visit Diagnostic Tests PendingPSA Total 04/22/24 [facility] Evaluation + Plan note Future Appointments Appointment Date:04/24/2025 09:45:00 AM Scheduled Provider:Oni MCKEON MD Location:[facility] Appointment Type:URO Office Visit Appointment Date:02/15/2026 09:30:00 AM Scheduled Provider: Location:[facility] Appointment Type: Medicare Wellness Subsequent Diagnostic Tests PendingHCV Antibody RFX to Quant PCR 02/16/25 [facility] Evaluation note Diagnosis MGUS (monoclonal gammopathy of unknown significance)- Primary Monoclonal paraproteinemia [facility] Diagnosis B12 deficiency- Primary Other B-complex deficiencies Diffuse large B-cell lymphoma, unspecified body region (HCC) [facility] Diagnosis MGUS (monoclonal gammopathy of unknown significance)- Primary Monoclonal paraproteinemia Macrocytic anemia Unspecified deficiency anemia [facility] Diagnosis MGUS (monoclonal gammopathy of unknown significance)- Primary Monoclonal paraproteinemia History of lymphoma Personal history of other lymphatic and hematopoietic neoplasm Lymph node enlargement Enlargement of lymph nodes Skin lesion of face Unspecified disorder of skin and subcutaneous tissue [facility] Diagnosis History of lymphoma Personal history of other lymphatic and hematopoietic neoplasm Lymph node enlargement Enlargement of lymph nodes [facility] Diagnosis Squamous cell carcinoma of scalp- Primary Other malignant neoplasm of scalp and skin of neck 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 documented in this encounter [facility] HealthcareEvaluation noteNo assessment information availableOhio Valley Hospital Work Phone: Evaluation note* Diagnosis MGUS (monoclonal gammopathy of unknown significance)- Primary Monoclonal paraproteinemia History of lymphoma Personal history of other lymphatic and hematopoietic neoplasm History of prostate cancer Personal history of malignant neoplasm of prostate Skin lesion of face Unspecified disorder of skin and subcutaneous tissue [facility] Diagnosis Wound infection- Primary Posttraumatic wound infection not elsewhere classified Squamous cell carcinoma of scalp Other malignant neoplasm of scalp and skin of neck [facility] Localized enlarged lymph nodes- Primary Enlargement of lymph nodes [facility] Diagnosis Squamous cell carcinoma of scalp- Primary Other malignant neoplasm of scalp and skin of neck Wound infection Posttraumatic wound infection not elsewhere classified Thyroid nodule (CMS/HCC) Nontoxic uninodular goiter [facility] Diagnosis Hemangioma of skin and subcutaneous tissue- Primary Neoplasm of unspecified behavior of bone, soft tissue, and skin Seborrheic keratosis Actinic keratosis documented in this encounter [facility] HealthcareEvaluation note* Diagnosis Capillary angioma- Primary Nevus, non-neoplastic Melanocytic nevus of trunk Benign neoplasm of skin of trunk, except scrotum Seborrheic keratosis Actinic keratosis History of SCC (squamous cell carcinoma) of skin Personal history of other malignant neoplasm of skin Lentigo simplex Other dyschromia [facility] Diagnosis Diffuse large B-cell lymphoma, unspecified body region (HCC)- Primary [facility] Diagnosis Localized enlarged lymph nodes Enlargement of lymph nodes Diffuse large B-cell lymphoma, unspecified body region (HCC) [facility] Diagnosis MGUS (monoclonal gammopathy of unknown significance)- Primary Monoclonal paraproteinemia History of prostate cancer Personal history of malignant neoplasm of prostate Acquired hypothyroidism Unspecified hypothyroidism [facility] Diagnosis Melanocytic nevus of trunk- Primary Benign neoplasm of skin of trunk, except scrotum History of SCC (squamous cell carcinoma) of skin Personal history of other malignant neoplasm of skin Seborrheic keratosis Actinic keratosis Ayala angioma Other seborrheic dermatitis documented in this encounter [facility] HealthcareHospital course Narrative No data available for this section [facility] Hospital Discharge instructions No data available for this section [facility] Additional Instructions No exertional [...] or concerns Follow-up in the office as scheduledOhio Valley Hospital Work Phone: Progress note No data available for this section [facility] Summary Purpose Family History No Family History Records Found Relationship Condition Age at Onset Recorded Date/T ruma mother Malignant neoplasm of lung Unknown Unknown Advance Directives No Advanced Directives Records Found Advance Directive Response Recorded Date/ Time Advance Directives No June 01, 2024 10:37am Hospital Course Note MR#: [id number] [facility] Pt. Name: Chiki Juarez Admitted: 06/26/2020 [...] asthma, lymphoma, and hypothyroidism, who transferred to [facility] for evaluation of poss (more content not included)... Reason for Referral Specialty Diagnoses / Procedures Referred By Chelsie t Referred To Contact CT IMAGING Diagnoses Localized enlarged lymph nodes Procedures CT CHEST W IVCON DIAGNOSTIC COMPUTED TOMOGRAPHY THORAX W/CONTRAST Tyler Draper MD [address] [place] [address] [place] [address] Ct [facility] [place] [id number] Referral ID Status Reason Start Date Expiration Date Visits Requested Visits Authorized [id number] Authorized Auto-Generat ed Referral 11/15/2024 07/10/2025 1 1 Specialty Diagnoses / Procedures Referred By Chelsie t Referred To Contact Dermatology Diagnoses Skin lesion of face Procedures CONSULT TO DERMATOLOGY OFFICE/OUTPATIENT [facility] 60 MINUTES Tyler Draper MD [address] [place] [address] [place] [address] Referral ID Status Reason Start Date Expiration Date Visits Requested Visits Authorized [id number] Authorized PCP Requested Referral 04/19/2024 04/19/2025 1 1 Specialty Diagnoses / Procedures Referred By Chelsie simon Referred To Contact MOLECULAR & FUNCTIONAL IMAGING Diagnoses History of lymphoma Lymph node enlargement Procedures NM PET/CT SKULL-THIGH SUBSEQUENT PET IMAGING CT ATTENUATION SKULL BASE MID-THIGH Tyler Draper MD [address] [place] [address] [place] [address] Molecular & Functional Imaging [address] [place] [address] Referral ID Status Reason Start Date Expiration Date Visits Requested Visits Authorized [id number] Authorized Auto-Generat ed Referral 04/19/2024 05/19/2025 1 [...] and content) DATE CREATED AUTHOR 07/16/2020 [facility] DATE CREATED AUTHOR AUTHOR'S ORGANIZ ATION 04/26/2022 [facility] DATE CREATED AUTHOR AUTHOR'S ORGANIZ ATION 10/16/2024 [facility] DATE CREATED AUTHOR AUTHOR'S ORGANIZ ATION 11/24/2024 [facility] DATE CREATED AUTHOR AUTHOR'S ORGANIZ ATION 02/05/2025 [facility] EPIC DATE CREATED AUTHOR AUTHOR'S ORGANIZ ATION 02/19/2025 [facility] DATE CREATED AUTHOR AUTHOR'S ORGANIZ ATION 02/22/2025 [facility] DATE CREATED AUTHOR AUTHOR'S ORGANIZ ATION 02/27/2025 [facility] DATE CREATED AUTHOR AUTHOR'S ORGANIZ ATION 03/03/2025 [facility] Comments (unrecognize d section and content) In the event this informatio n is protected by the Federal Confidentiality of Alcohol and Drug Abuse Patient Records regulations: The Federal rules restrict any use of the information to criminally investigate or prosecute any alcohol or drug abuse patient.[facility] the event this information is protected by the Federal Confidentiality of Alcohol and Drug Abuse Patient Records regulations: The Federal rules restrict any use of the information to criminally investigate or prosecute any alcohol or drug abuse patient.[facility] Center[facility] the event this information is protected by the Federal Confidentiality of Alcohol and Drug Abuse Patient Records regulations: The Federal rules restrict any use of the information to criminally investigate or prosecute any alcohol or drug abuse patient.[facility] Center[facility] the event this information is protected by the Federal Confidentiality of Alcohol and Drug Abuse Patient Records regulations: The Federal rules restrict any use of the information to criminally investigate or prosecute any alcohol or drug abuse patient.[facility] Center[facility] the event this information is protected by the Federal Confidentiality of Alcohol and Drug Abuse Patient Records regulations: The Federal rules restrict any use of the information to criminally investigate or prosecute any alcohol or drug abuse patient.[facility] Center[facility] the event this information is protected by the Federal Confidentiality of Alcohol and Drug Abuse Patient Records regulations: The Federal rules restrict any use of the information to criminally investigate or prosecute any alcohol or drug abuse patient.[facility] CenterIn the event this information is protected by the Federal Confidentiality of Alcohol and Drug Abuse Patient Records regulations: The Federal rules restrict any use of the information to criminally investigate or prosecute any alcohol or drug abuse patient.[facility] Center[facility] the event this information is protected by the Federal Confidentiality of Alcohol and Drug Abuse Patient Records regulations: The Federal rules restrict any use of the information to criminally investigate or prosecute any alcohol or drug abuse patient.[facility] Center[facility] the event this information is protected by the Federal Confidentiality of Alcohol and Drug Abuse Patient Records regulations: The Federal rules restrict any use of the information to criminally investigate or prosecute any alcohol or drug abuse patient.[facility] Center[facility] the event this information is protected by the Federal Confidentiality of Alcohol and Drug Abuse Patient Records regulations: The Federal rules restrict any use of the information to criminally investigate or prosecute any alcohol or drug abuse patient.[facility] CenterIn the event this information is protected by the Federal Confidentiality of Alcohol and Drug Abuse Patient Records regulations: The Federal rules restrict any use of the information to criminally investigate or prosecute any alcohol or drug abuse patient.[facility] CenterIn the event this information is protected by the Federal Confidentiality of Alcohol and Drug Abuse Patient Records regulations: The Federal rules restrict any use of the information to criminally investigate or prosecute any alcohol or drug abuse patient.[facility] CenterIn the event this information is protected by the Federal Confidentiality of Alcohol and Drug Abuse Patient Records regulations: The Federal rules restrict any use of the information to criminally investigate or prosecute any alcohol or drug abuse patient.[facility] Center[facility] the event this information is protected by the Federal Confidentiality of Alcohol and Drug Abuse Patient Records regulations: The Federal rules restrict any use of the information to criminally investigate or prosecute any alcohol or drug abuse patient.[facility] CenterIn the event this information is protected by the Federal Confidentiality of Alcohol and Drug Abuse Patient Records regulations: The Federal rules restrict any use of the information to criminally investigate or prosecute any alcohol or drug abuse patient.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 Procedures ME OFFICE/OUTPATIENT NEW HIGH MDM 60 MINUTES Crys Taylor PA [address] [place] [address] Phone: tel: fax: Connor Crawley, DO [address] [place] [address] Phone: tel: fax: Referral ID Status Reason Start Date Expiration Date V isits Requested Visits Authorized [id number] Closed Specialty Services Required 05/09/2024 11/05/2024 1 1 Reason Comments 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 [place] [address] Lucie Tompkins MD [address] [facility] [address] [place] [address] Referral ID Status Reason Start Date Expiration Date Visits Re quested Visits Authorized [id number] Closed 04/21/2024 10/18/2024 1 1 Reason Comments Skin Check Reason Comments Orders Reason Comments Radiology CT Specialty Diagnoses / Procedures Referred By Contac t Referred To Contact CT IMAGING Diagnoses Localized enlarged lymph nodes Procedures CT CHEST W IVCON DIAGNOSTIC COMPUTED TOMOGRAPHY THORAX W/CONTRAST Tyler Draper MD [address] [place] [address] Phone: tel: fax: [place] [address] Referral ID Status Reason Start Date Expiration Date V isits Requested Visits Authorized [id number] Closed Auto-Generate d Referral 11/15/2024 07/10/2025 1 1 Reason Comments MGUS Reason Onset Date Comments TSH results 11/24/2024 Care Teams (unrecognized sec tion and content) C D Reactor Operator Relationship Specialty Start Date End Date Will Sherwood MD [address] [place] [address] PCP - General 08/01/05 C D Reactor Operator Relationship Specialty Start Date End Date Will Sherwood MD [address] [facility] [place] [address] PCP - General 08/01/05 C D Reactor Operator Relationship Specialty Start Date End Date Will Sherwood MD [address] [place] [address] PCP - General 08/01/05 C D Reactor Operator Relationship Specialty Start Date End Date Will Sherwood MD [address] [place] [address] PCP - General 08/01/05 C D Reactor Operator Relationship Specialty Start Date End Date Pito Patterson MD [address] [address] PCP - General Family Medicine 07/23/23 C D Reactor Operator Relationship Specialty Start Date End Date Pito Patterson MD [address] [place] [address] PCP - General Family Medicine 07/23/23 C D Reactor Operator Relationship Specialty Start Date End Date Pito Patterson MD [address] [place] [address] PCP - General Family Medicine 07/23/23 C D Reactor Operator Relationship Specialty Start Date End Date Pito Patterson MD [address] [place] [address] PCP - General Family Medicine 07/23/23 C D Reactor Operator Relationship Specialty Start Date End Date Unallocated, Noms MD [address] [place] [address] PCP - General Family Medicine 04/08/23 Crys Taylor PA [address] [place] [address] Physician Slug Press Operator Dermatology 05/31/24 Connor Crawley DO [address] [place] [address] Otolaryngology 05/31/24 C D Reactor Operator Relationship Specialty Start Date End Date Pito Patterson MD [address] [place] [address] PCP - General Family Medicine 05/31/24 Crys Taylor PA [address] [place] [address] Physician Slug Press Operator Dermatology 05/31/24 Connor Crawley DO [address] [place] [address] Otolaryngology 05/31/24 Team Status: Active Member Role Status Dates Pito Patterson MD Primary Care Provider Active Team Status: Inactive Member Role Status Dates Connor Crawley DO Attending Provider Active S tart: June 01, 2024 End: June 01, 2024 Pito Patterson MD Primary Care Provider Active Start: June 01, 2024 End: June 01, 2024 C D Reactor Operator Relationship Specialty Start Date End Date Pito Patterson MD [address] [place] [phone] PCP - General Family Medicine 05/31/24 Crys Taylor PA [address] [place] [address] Physician Slug Press Operator Dermatology 05/31/24 Connor Crawley DO [address] [place] [address] Otolaryngology 05/31/24 C D Reactor Operator Relationship Specialty Start Date End Date Pito Patterson MD [address] [place] [address] PCP - General Family Medicine 07/23/23 C D Reactor Operator Relationship Specialty Start Date End Date Pito Patterson MD [address] [place] [address] PCP - General Family Medicine 05/31/24 Crys Taylor PA [address] [place] [address] Physician Slug Press Operator Dermatology 05/31/24 Connor Crawley DO [address] [place] [address] Otolaryngology 05/31/24 C D Reactor Operator Relationship Specialty Start Date End Date Unallocated, Mohit Galvan MD [address] [place] [address] PCP - General Family Medicine 04/08/23 C D Reactor Operator Relationship Specialty Start Date End Date Unallocated, Mohit Galvan MD [address] [facility] [address] PCP - General Family Medicine 04/08/23 C D Reactor Operator Relationship Specialty Start Date End Date Pito Patterson MD [address] [place] [phone] PCP - General Family Medicine 05/31/24 Crys Taylor PA [address] [place] [address] Physician Slug Press Operator Dermatology 05/31/24 Connor Crawley DO [address] [place] [address] Otolaryngology 05/31/24 C D Reactor Operator Relationship Specialty Start Date End Date Pito Patterson MD [address] [place] [address] PCP - General Family Medicine 07/23/23 C D Reactor Operator Relationship Specialty Start Date End Date Pito Patterson MD [address] [place] [address] PCP - General Family Medicine 07/23/23 C D Reactor Operator Relationship Specialty Start Date End Date Pito Patterson MD [address] [place] [address] PCP - General Family Medicine 07/23/23 C D Reactor Operator Relationship Specialty Start Date End Date Pito Patterson MD [address] [place] [address] PCP - General Family Medicine 07/23/23 C D Reactor Operator Relationship Specialty Start Date End Date Pito Patterson MD [address] [place] [address] PCP - General Family Medicine 05/31/24 Crys Taylor PA [address] [place] [address] Physician Slug Press Operator Dermatology 05/31/24 Connor Crawley DO [address] [place] [address] Otolaryngology 05/31/24 C D Reactor Operator Relationship Specialty Start Date End Date Pito Patterson MD [address] [place] [address] PCP - General Family Medicine 05/31/24 Crys Taylor PA [address] [place] [address] Physician Slug Press Operator Dermatology 05/31/24 Connor Crawley DO [address] [place] [address] Otolaryngology 05/31/24 FOR RECORDS PERTAINING TO PATIENTS [...] BE BASED ON THE PRIMARY CLINICAL RECORDS. [employer] [facility]. provides no warranty or guarantee of the accuracy or completeness of information in this document.
[2025-03-06] MEDS: METOPROLOL SUCCINATE 25 MG TAB.ER.24H PO (09:03)
[2025-03-06] MEDS: FUROSEMIDE 40 MG TABLET PO (09:03)
[2025-03-06] MEDS: ACETAMINOPHEN 325 MG TABLET 650 MG PO ×2 (09:03→16:32)
[2025-03-06] MEDS: ENOXAPARIN SODIUM 40 MG/0.4 ML SYRINGE SUBQ (09:03)
[2025-03-06] MEDS: DOXYCYCLINE MONOHYDRATE 100 MG CAPSULE PO (09:03)
[2025-03-06] MEDS: DOCUSATE SODIUM 100 MG CAPSULE PO (09:03)
[2025-03-06] MEDS: SENNOSIDES/DOCUSATE SODIUM 1 TAB TABLET PO (09:03)
[2025-03-06] MEDS: ASPIRIN 81 MG TAB.CHEW PO (09:03)
[2025-03-06] MEDS: MONTELUKAST SODIUM 10 MG TABLET PO (09:04)
[2025-03-06] MEDS: BUDESONIDE 0.5 MG/2 ML AMPULE NEB IH (09:41)
[2025-03-06] MEDS: IPRATROPIUM/ALBUTEROL SULFATE 3 ML AMPUL.NEB IH (09:41)
--- NOTE | 2025-03-06 10:00 | CM.NOTE ---
Important Message From Medicare discussed with pt, pt denies questions or concerns.
--- NOTE | 2025-03-06 10:00 | CM.NOTE ---
Rounds made with Dr. Grigsby, pt will discharge to home today on steroids and antibiotics. Pt verbalizes understanding. Pt concerned about not having PCP now that Dr. Briceño has left practice. Discussed PCP options and pt would like to f/u with Dr. Wing. Med Surg traveling secretary will make f/u appt prior to pt's discharge.
--- NOTE | 2025-03-06 10:13 | PM.DS1 ---
DS: Providers Provider Date of admission: 03/06/25 07:02 Primary care physician: FRANCESCO DASH Consults: 03/03/25 Occupational Therapy Eval and Treat Routine Reason for consultation: weakness Physical Therapy Eval and Treat Routine Reason for consultation: weakness 03/04/25 10:00 Occupational Therapy Eval and Treat Routine Reason for consultation: Weakness Physical Therapy Eval and Treat Routine Reason for consultation: Weakness Discharging clinician: Nadeem Grigsby DS: Diagnosis Discharge Diagnosis (1) Bacterial pneumonia: (2) Pulmonary hypertension: (3) COPD with acute exacerbation: (4) CKD (chronic kidney disease): (5) Chronic hypoxic respiratory failure: (6) Scarring of lung: (7) Multifactorial functional impairment: (8) Lumbar compression fracture: Plan As above DS: Summary Hospital Course Hospital Course: Mr. Juarez is a 79-year-old gentleman with a known diagnosis of chronic hypoxic respiratory failure for which he is on 4 L. Questionable cystic fibrosis versus COPD versus, remission. Patient also is known to have heart disease. Cardiac dysrhythmia status post pacemaker. Patient came in with worsening shortness of breath, cough productive to yellowish sputum. No fever or chills. No chest pain or palpitation. No abdominal pain, nausea or vomiting. Chronic and progressive low back pain. No focal weakness or numbness. No sudden or acute weakness or numbness. Acute shortness of breath, acute on chronic hypoxic respiratory failure. Patient is on 4 L at home Likely multifactorial secondary to developing pneumonia in the right upper lobe (haziness seen on CT chest ), probable right lower lobe infiltration. Underlying parenchymal lung disease. Probable COPD versus pulmonary fibrosis versus others. (Patient stated that his master hearth technician mentioned cystic fibrosis ?? ) Pulmonary hypertension Status post radiation and treatment of the lymph node in the chest for lymphoma many years ago. Continue intravenous ceftriaxone and doxycycline. Influenza, RSV and COVID are negative Corticosteroid Albuterol, Atrovent. The patient euvolemic state Patient is feeling better. Continue current treatment plan Patient is to follow-up with his master hearth technician postdischarge Diastolic heart failure, history of cardiac dysrhythmia status post pacemaker Patient is in a near euvolemic state. Continue maintenance Lasix 40 mg daily Continue small dose beta-luis eduardo Patient is not on anticoagulation. He is only on aspirin. CKD stage III, near baseline. Continue maintenance diuretics to keep him in a euvolemic state L1 and L3 compression fracture Unknown duration, probable subacute I suspect the patient has osteoporosis. Recommend DEXA scan in the outpatient setting and initiation of bisphosphonate treatment Check vitamin D level to rule out vitamin D deficiency Anemia, no evidence of acute blood loss. Patient will likely require to have anemia workup to be done in the outpatient setting to be handled by PCP in collaboration with other needed outpatient providers. This may include but not limited to EGD, colonoscopy, referral to see hematology and other needed age-appropriate cancer screening. History of lymphoma status postradiation treatment, history of CVA with residual dysarthria, weakness and functional decline Continue aspirin. PT OT eval and treatment. Chronic medical conditions not listed above, incidental findings seen on labs and imaging. Patient has multi system involvement complexity and follows up with cardiology, pulmonary, joinery patternmaker in [place] and in [place]. These would need to be addressed. Could be addressed when time and condition are appropriate. Could be addressed in the outpatient setting by PCP collaboration with other needed outpatient providers. 03/06/2025 I took over this patient's care today. He is doing better he is on 2 L nasal cannula today saturate 93%. I explained to him that I would be comfortable keeping him for another day however patient stated that he is eager to leave and go home. He states that he will see his master hearth technician in 2 days in [place]. He mentions that he is on the Tespire shot for his asthma and he will follow-up with his master hearth technician on when and how soon to take it. I will send him on a course of steroids as well as another course of antibiotics until he sees his master hearth technician. I explained to him to come back to the hospital if he has an short of breath worsened than his usual as well as if he needs more oxygen or is having cough that is worse than his usual. He understands agrees assessment management he was very appreciative of our efforts. Patient will be discharged today in a stable manner. Patient seen by PT and they recommended home as disposition. PT needs a PCP to establish care with, which we will help setting him up with one on discharge today, our hospitalist nurse will take care of that Status at Discharge Overall status at discharge: patient is back to baseline Time Spent with Patient Time attestation: Total time spent providing and/or coordinating discharge services: Time spent: greater than 30 minutes Exam Narrative Exam Narrative: Constituational: Awake/ alert, patient is slightly tachypneic when he tries to speak which is around his baseline respiratory status. Not in any distress today. Very pleasant and cooperative HENMT: normocephalic, external ears normal, moist oral mucous membranes and oropharynx normal Eyes: EOMI and conjunctivae normal Neck: ROM intact Chest: inspection of chest normal Respiratory: Decreased bilateral air entry I did not hear any wheezes or crackles. He is slightly And when he tries to speak in full sentences however not using regulatory affairs specialist muscles and not using abdominal muscles with patient is near his baseline respiratory status as he mentions Cardio: regular rate and regular rhythm GI: soft to palpation and non-tender MSK: No pitting edema, intact peripheral pulses bilateral Skin: no rashes or petechiae Neuro: no focal deficits, alert oriented x 3, no focal deficits Constitutional Vital Signs, click to edit/add: Last Vital Signs Temp 97.6 F 03/06/25 08:50 Pulse 73 03/06/25 10:00 Resp 18 03/06/25 08:50 BP 152/80 H 03/06/25 08:50 Pulse Ox 93 L 03/06/25 08:50 O2 Del Method Nasal Cannula 03/06/25 09:44 O2 Flow Rate 4 03/06/25 08:50 DS: Data Data Completed and Pending Labs on day of discharge: Labs from last 24 hours 03/06/25 05:38 WBC 5.7 RBC 3.10 L Hgb 10.5 L Hct 33.0 L MCV 106.5 H MCH 33.9 MCHC 31.8 RDW 15.1 H Plt Count 148 L MPV 11.2 Sodium 142 Potassium 4.6 Chloride 106 Carbon Dioxide 29.3 Anion Gap 11.3 BUN 48.0 H Creatinine 1.61 H Est GFR ( Amer) 51 L Est GFR (Non-Af Amer) 42 L BUN/Creatinine Ratio 29.8 Glucose 176 H Calcium 8.8 Preliminary micro results at discharge 03/02/25 13:45 Blood Culture Result 2 - Preliminary Blood NO GROWTH AT 36-48 HOURS. FINAL TO FOLLOW. 03/02/25 13:38 Blood Culture Result 1 - Preliminary Blood NO GROWTH AT 36-48 HOURS. FINAL TO FOLLOW. Discharge Plan Discharge Disposition: Home, Self-Care Discharge Medications: New sennosides-docusate sodium [Senna Plus] 8.6-50 mg Tablet 1 tab PO QD PRN (Reason: Constipation) 10 Days Qty: 10 0RF doxycycline monohydrate 100 mg Capsule 100 mg PO BID 5 Days Qty: 10 0RF dextromethorphan-guaifenesin [Robitussin Max 12H Cough-Mucus] 60-1,200 mg tablet extended release 12 hr 1 tab PO BID PRN (Reason: cough) Qty: 20 0RF amoxicillin-pot clavulanate [Augmentin] 500-125 mg tablet 1 tab PO BID 5 Days Qty: 10 0RF prednisone 10 mg tablet See Rx Instructions .ROUTE .COMPLEX Qty: 42 0RF Rx Instructions: Take 60 mg (total of 6 tablets) daily for 3 days followed by 40 mg (4 tablets) daily for another 3 days followed by 20 mg (total of 2 tablets) daily fo4 another 3 days followed by 10 mg (1 tablet) daily for another 3 days followed by 5 mg (half a tablet) daily for another 3 days and you will finish this steroid taper Continued albuterol sulfate 2.5 mg /3 mL (0.083 %) solution for nebulization 2.5 mg inhalation Q4H PRN (Reason: shortness of breath or wheezing) calcium tablet 1,200 mg PO DAILY cyanocobalamin (vitamin B-12) [Vitamin B-12] 5,000 mcg tablet, sublingual 5,000 mcg sublingual DAILY cholecalciferol (vitamin D3) [Vitamin D3] 25 mcg (1,000 unit) capsule 25 mcg PO DAILY aspirin 81 mg capsule 81 mg PO DAILY Hyper-Flaco 3.5 % solution for nebulization 4 ml INHALATION BID Serevent Diskus 50 mcg/dose blister with device 1 inh inhalation BID metoprolol succinate 25 mg Tablet Extended Release 24 Hr 25 mg PO QD Qty: 30 0RF montelukast 10 mg tablet 10 mg PO DAILY tiotropium bromide 18 mcg capsule, w/inhalation device 1 cap INHALATION DAILY furosemide 40 mg tablet 40 mg PO DAILY levothyroxine 112 mcg tablet 112 mcg PO .acb budesonide 1 mg/2 mL suspension for nebulization 1 mg inhalation Q12H Held Tezspire 210 mg/1.91 mL (110 mg/mL) pen injector 210 mg SUBCUT .qmonthly Hold Instructions: hold until you call your master hearth technician office and address that Discontinued potassium chloride 10 mEq capsule, extended release 10 meq PO DAILY Print Language: Czech Patient Instructions: Heart Failure (GEN) Forms: Portal Instructions Follow Up Appointments: Keep previously scheduled appt. with Jaycee Berg (pulmonology) for this week. Dr. Wing [phone]
[2025-03-06] MEDS: METHYLPREDNISOLONE SOD SUCC PF 40 MG/ML VIAL IVP ×2 (10:43→17:53)
--- NOTE | 2025-03-06 13:43 | REH.PTDLY ---
Physical Therapy Daily Note PT Daily Note/Assess Start: 03/03/25 16:43 Freq: Status: Active Protocol: Document 03/06/25 13:39 SUZETTE (Rec: 03/06/25 13:43 SUZETTE [id number]) Visit Not Completed Visit Not Completed Other Due to: Other Reason Visit Pt standing in bathroom Ind shaving upon arrival. Pt Not Completed states he plans to shower after this and then is getting an IV antibiotic before being DC to home. Pt is up ad ebony in room walking without AD. Pt declines PT at this time, states he is doing much better. Physical Therapy Daily Note/Assessment Time In 13:35 Time Out 13:39
--- NOTE | 2025-03-07 10:15 | NUTR.NU ---
Pt w/chronic respiratory disease. PO intakes are good and appear adequate at this time. Pt denies h/o DM; high BG levels likely d/t steroid use. He is discharging today; no dietary needs identified.
--- NOTE | 2025-03-08 14:44 | CM.DCFOLLOWU ---
1st attempt 03/08/25, no answer
--- NOTE | 2025-03-09 10:51 | CM.DCFOLLOWU ---
2nd attempt 03/09/25, no answer
== END 2025-03-06 18:10 | disposition home or self-care (01) | DRG 193 ==
LOC: ER 15:40 → MS 03-06 06:24
PROVIDERS: Internal Medicine; Nurse Practitioner; Admitting Provider Student in an Organized Health Care Education/Training Program; Emergency Provider Emergency Medicine; PCP Nurse Practitioner; Visit Provider Student in an Organized Health Care Education/Training Program
DX: J15.9 Unspecified bacterial pneumonia (principal); I50.33 Acute on chronic diastolic (congestive) heart failure; J96.21 Acute and chronic respiratory failure with hypoxia; J44.0 Chronic obstructive pulmonary disease with (acute) lower respiratory infection; J44.1 Chronic obstructive pulmonary disease with (acute) exacerbation; M48.56XA Collapsed vertebra, not elsewhere classified, lumbar region, initial encounter for fracture; I27.20 Pulmonary hypertension, unspecified; Z95.0 Presence of cardiac pacemaker; N18.30 Chronic kidney disease, stage 3 unspecified; D64.9 Anemia, unspecified; Z85.72 Personal history of non-Hodgkin lymphomas; I69.922 Dysarthria following unspecified cerebrovascular disease; R53.1 Weakness; Z74.09 Other reduced mobility; Z92.3 Personal history of irradiation; Z99.81 Dependence on supplemental oxygen; Z87.891 Personal history of nicotine dependence; Z79.82 Long term (current) use of aspirin; Z79.890 Hormone replacement therapy; E03.9 Hypothyroidism, unspecified; J98.4 Other disorders of lung; M81.0 Age-related osteoporosis without current pathological fracture; J84.10 Pulmonary fibrosis, unspecified; G47.30 Sleep apnea, unspecified
CPT/HCPCS: 36415; 71045; 71250; 72131; 80048; 80053; 80061; 81001; 82306; 83605; 83735; 83880; 84443; 84484; 85007; 85027; 87040; 87420; 87804; 87811; 93005; 94640; 94761; 96365; 96372; 96375; 97161; 97165; 97530; 97535; 99285; G0378; J0696; J1100; J1650; J1938; J2919

== ENCOUNTER 2025-03-26 10:43 | Emergency (ER) | payer MEDICARE, SELFPAY ==
--- OUTSIDE RECORDS SUMMARY | 2025-03-13 06:15 | XMS_ITS ---
Author Organization [facility] in [place] Address [address] [place] [address] Care Team Providers Care Hospital Superintendent Name Role Phone Maciej Domenico Primary Care Provider [phone] Patricia Medications Medication SIG (Take, Route, Frequency, Duration) Notes Start Date End Date Status Calcitonin (Hixton) 200 UNIT/ACT 1 spray in 1 nostril, alternating nostrils daily Nasally Once a day DX M48.56XA for 90 days 03/14/2025 Active Encounters Encounter Location Date Provider Diagnosis [facility] [address] [place] [address] 03/13/2025 Domenico Maciej Plan Of Treatment Medication Medication Name Sig Start Date Stop Date Notes Calcitonin (Hixton) 200 UNIT/ACT 1 spray in 1 nostril, alternating nostrils daily Nasally Once a day DX M48.56XA for 90 days 03/14/2025 Next Appt Details Provider Name:Domenico Wing, 10:00:00 AM, [address] [place], [address], Progress Notes * Dorian JUAREZ GDOB:[birth year] (79 yo M)Acc No.[id number]:03/13/2025 Patient: Ernie Dorian EVANS :1945 A ge:79 Y S ex:Male Address:[address] [place] [address], [address] * Refills Start Calcitonin (Hixton) Solution, 200 UNIT/ACT, Nasally, 3 Each, 1 spray in 1 nostril, alternating nostrils daily, Once a day DX M48.56XA, 90 days, Refills=3 * true * Date: Generated for Brandon escobar/Loren/Travitting on: 0 03/26/2025 10:52 AM EDT
--- OUTSIDE RECORDS SUMMARY | 2025-03-22 09:30 | XMS_ITS ---
Author Organization [facility] in [place] Address [address] [place] [address] Care Team Providers Care Journalism Intern Name Role Phone Domenico Wing Primary Care Provider Allergies Allergen (clinical drug ingredient) Drug/Non Drug Allergy documented on EMR Reaction Allergy Type Onset Date Status Latex Latex (uncoded) rash Allergy Acti ve REASON FOR VISIT Coughing, Sinus Drainage, Shortness of Breath, Edema Medications Medication SIG (Take, Route, Frequency, Duration) Notes Start Date End Date Status Azelastine HCl 137 MCG/SPRAY SPRAY 1 SPRAY INTO EACH NOSTRIL TWICE A DAY Nasal for 50 Days Active Tezspire 210 MG/1.91ML as directed Subcutaneous Active Budesonide 0.5 MG/2ML USE 1 VIAL VIA NEB ULIZER TWICE A DAY Inhalation for 90 Days Active Aspirin 81 MG 1 tablet Orally Once a day for 30 day(s) 11/02/2024 Active Albuterol Sulfate (2.5 MG/3ML) 0.083% INHALE 1 VIAL VIA NEBULIZER EVERY 4 HOURS Inhalation for 17 Days Active Serevent Diskus 50 MCG/ACT 1 puff Inhala tion Twice a day Active Spiriva Respimat 2.5 MCG/ACT 2 puffs Inhalation Once a day 11/02/2024 Active Potassium Chloride ER 10 MEQ 1 tablet with food Orally Twice a day ON HOLD Active Levothyroxine Sodium 100 MCG TAKE 1 TABLET BY MOUTH EVERY DAY Oral for 90 Days Active Montelukast Sodium 10 MG TAKE 1 TABLET B Y MOUTH EVERY DAY Oral for 90 Days Active Azithromycin 250 MG 2 tabs today then 1 tab Orally daily for 5 days 03/22/2025 Active Furosemide 20 MG 1 tablet Orally Once a day for 30 day(s) 11/02/2024 Active HyperSal 3.5 % INHALE 4 ML VIA NEBULIZER TWO TIMES DAILY. Inhalation for 30 Days Active Calcitonin ([place]) 200 UNIT/ACT 1 spray in 1 nostril, alternating nostrils daily Nasally Once a day DX M48.56XA for 90 days 03/14/2025 Active Fluticasone-Salmeterol 500-50 MCG/ACT 1 puff Inhalation Twice a day Active Social History Tobacco Use: Social History Observation Description Date Details (start date - stop date) Former Smoker NA - NA Tobacco Control (Standard) Question Answer Notes Tobacco use: Former smoker How long has it been since y ou last smoked? Greater than 10 years Additional Findings: Tobacco non-user Ex -moderate cigarette smoker (10-19/day) AUDIT-C (Standard) Question Answer Notes Did you have a drink containing alcohol in the p ast year? No Points 0 Interpretation Negative Vital Signs Blood pressure systolic 112 mm Hg 03/22/20 25 Blood pressure diastolic 62 mm Hg 025 Height 63 in 03/22/2025 Weight 203 lbs 03/22/2025 BMI 35.96 kg/m2 03/22/2025 Encounters Encounter Location Date Provider Diagnosis [address] [address] 03/22/2025 Domenico Wing Acute bronchitis, unspecified organism J20.9 Assessments Encounter Date Diagnosis (ICD Code) Assessment Notes Treatment Notes Treatment Clinical Notes Section Notes 03/22/2025 Acute bronchitis, unspecified organism (ICD-10 - J20.9) Rest and drink more liquids, especially water. You may use a humidifier or vaporizer to help keep the drainage moist. Aitu-els-ddboudy Nasal Saline may help the stuffy and runny nose. Use Ibuprofen and or Tylenol as needed for fever, chills, body aches or pain. Children 5 years old should not be given vsod-mgt-ostfwkh cough and cold medications such as guaifenesin and dextromethorphan. If you're over age 5, you may try rjft-ukw-bozyftt cold medications such as guaifenesin and dextromethorphan, or multi-symptom cold reliever such as Dayquil to help reduce the symptoms. Antibiotics have been prescribed. You should take these until completed and follow the directions. Antibiotics can sometimes cause upset stomach, and in rare cases, serious allergic reactions or serious gastrointestinal problems. If you start having severe abdominal pain, severe vomiting, or bloody diarrhea, you should be reevaluated by your physician or urgent care immediately. Follow up with your Primary Care Provider or return to clinic if symptoms do not improve within 3-5 days. If you develop severe symptoms such as shortness of breath, repeated vomiting, coughing up blood, or chest pain you should go to the emergency room or call 911 Plan Of Treatment Medication Medication Name Sig Start Date Stop Date Notes Azithromycin 250 MG 2 tabs today then 1 tab Orally daily for 5 days 03/22/2025 Treatment Notes Assessment Notes Acute bronchitis, unspecified organism R est and drink more liquids, especially water. You may use a humidifier or vaporizer to help keep the drainage moist. Ivih-hcf-pegbbuw Nasal Saline may help the stuffy and runny nose. Use Ibuprofen and or Tylenol as needed for fever, chills, body aches or pain. Children 5 years old should not be given hfwy-peu-xdjdpxn cough and cold medications such as guaifenesin and dextromethorphan. If you're over age 5, you may try dwro-wmf-lydzfia cold medications such as guaifenesin and dextromethorphan, or multi-symptom cold reliever such as Dayquil to help reduce the symptoms. Antibiotics have been prescribed. You should take these until completed and follow the directions. Antibiotics can sometimes cause upset stomach, and in rare cases, serious allergic reactions or serious gastrointestinal problems. If you start having severe abdominal pain, severe vomiting, or bloody diarrhea, you should be reevaluated by your physician or urgent care immediately. Follow up with your Primary Care Provider or return to clinic if symptoms do not improve within 3-5 days. If you develop severe symptoms such as shortness of breath, repeated vomiting, coughing up blood, or chest pain you should go to the emergency room or call 911 Next Appt Details Follow Up: 3-5 days if not i mproving, Reason: Provider Name:Domenico Wing, 10:00:00 AM, [address] [facility], [place], [address], Medications Administered Medication Instructions Date of Administration Dosage Notes Dexamethasone, 4mg/mL 03/22/2025 8 mg Progress Notes * Dorian JUAREZ GDOB:[birth year] (79 yo M)Acc No.[id number]:03/22/2025 Progress Note Patient: Dorian HOGUE Provider: Stacy Wing ([facility])MD :1945 A ge:79 Y S ex:Male Date:03/22/2025 Address:[address] [place], [place] [id number] Check In:01:29 PM ESTCheck O ut:02:19 PM EST Subjective: * Chief Complaints: * C oughing, Sinus Drainage, Shortness of BreathEdema * HPI: G eneral: 3 days - cough CANO no fever - + edema - and no change in orthopnea CANO - sig - sweleing much better. B ronchitis: The patient complains of symptoms of bronchitis. The symptoms have been present for 1-2 days. The symptoms are moderate. The patient has not been exposed to sick contacts. Symptomatic treatment has included OTC medication. Associated symptoms include nasal congestion, postnasal drainage, congested ears, cough, fever, chills, body aches. * ROS: E NT: Ear pain d enies. H oarseness d enies. ? C ardiovascular: Edema d enies. P alpitations d enies. ? R espiratory: Comments S ee HPI for details. G astrointestinal: Abdominal pain d enies. D iarrhea d enies. N ausea d enies. S kin: Rash d enies. 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 Modified On:11/02/2024 Status:confirmed R94.31 Prolonged QT interva l Modified On:11/02/2024 Status:confirmed I27.29 Other secondary pulm onary hypertension Modified On:11/02/2024 Status:confirmed J43.2 Centrilobular emphys vish Modified On:10/13/2024 Status:confirmed Z79.51 USP (current) use of inhaled steroids Modified On:11/02/2024 Status:confirmed G47.30 Sleep apnea Modified On:11/22/2024 Status:confirmed E03.9 Hypothyroidism Modified On:11/22/2024 Status:confirmed I27.20 Pulmonary hypertensi on Modified On:11/22/2024 Status:confirmed E66.01 Morbid (severe) obes ity due to excess calories Modified On:03/13/2025 Status:confirmed I44.2 Atrioventricular blo ck, complete Modified On:03/13/2025 Status:confirmed Z95.0 Pacemaker Modified On:03/13/2025 Status:confirmed I63.9 CVA (cerebral vascul ar accident) Modified On:03/13/2025 Status:confirmed C85.90 Lymphoma Modified On:03/13/2025 Status:confirmed E04.1 Thyroid nodule Modified On:03/13/2025 Status:confirmed M54.14 Thoracic radiculopat hy Modified On:03/13/2025 Status:confirmed M54.16 Lumbar radiculopathy , chronic Modified On:03/13/2025 Status:confirmed M48.56XA Compression fracture of lumbar spine, non-traumatic Modified On:03/13/2025 Status:confirmed * Medical History: * Surgical History: m elanoma excision lymph node resection Cardiac Catheterization cardiac pacemeker * Hospitalization/Major Diagno stic Procedure: C OPD Exacerbation-TBH 10/11/2024Pneumonia 02/2025 * Family History: F ather: black lung, stroke. M other: Lung cancer, diagnosed with Unspecified heart disease. B rosaer(s): Cystic Fibrosis, COPD, diagnosed with Colon cancer. [...] When did you stop smokin years ago.. D rug/Alcohol: A PAOLA-C (Standard) D id you have a drink containing alcohol in the past year? N o P oints 0 I nterpretation N egative * Medications: T akingAlbuterol Sulfate (2.5 MG/3ML) 0.083% Nebulization Solution INHALE 1 VIAL VIA NEBULIZER EVERY 4 HOURS Inhalation Aspirin 81 MG Tablet Delayed Release 1 tablet Orally Once a day Azelastine HCl 137 MCG/SPRAY Solution SPRAY 1 SPRAY INTO EACH NOSTRIL TWICE A DAY Nasal Budesonide 0.5 MG/2ML Suspension USE 1 VIAL VIA NEBULIZER TWICE A DAY Inhalation Calcitonin ([place]) 200 UNIT/ACT Solution 1 spray in 1 nostril, alternating nostrils daily Nasally Once a day DX M48.56XA Fluticasone-Salmeterol 500-50 MCG/ACT Aerosol Powder Breath Activated 1 puff Inhalation Twice a day Furosemide 20 MG Tablet 1 tablet Orally [...] tablet with food Orally Twice a day , Notes to Pharmacist: ON HOLDSerevent Diskus(Salmeterol Xinafoate) 50 MCG/ACT Aerosol Powder Breath Activated 1 puff Inhalation Twice a day Spiriva Respimat(Tiotropium [place] Monohydrate) 2.5 MCG/ACT Aerosol Solution 2 puffs Inhalation Once a day Tezspire(Tezepelumab-ekko) 210 MG/1.91ML Solution Auto- injector as directed Subcutaneous Medication List reviewed and reconciled with the patientTaking Albuterol Sulfate (2.5 MG/3ML) 0.083% Nebulization Solution INHALE 1 VIAL VIA NEBULIZER EVERY 4 HOURS Inhalation Taking Aspirin 81 MG Tablet Delayed Release 1 tablet Orally Once a day Taking Azelastine HCl 137 MCG/SPRAY Solution SPRAY 1 SPRAY INTO EACH NOSTRIL TWICE A DAY Nasal Taking Budesonide 0.5 MG/2ML Suspension USE 1 VIAL VIA NEBULIZER TWICE A DAY Inhalation Taking Calcitonin ([place]) 200 UNIT/ACT Solution 1 spray in 1 nostril, alternating nostrils daily Nasally Once a day DX M48.56XA Taking Fluticasone-Salmeterol 500-50 MCG/ACT Aerosol Powder Breath Activated 1 puff Inhalation Twice a day Taking Furosemide 20 MG Tablet 1 tablet [...] tablet with food Orally Twice a day , Notes to Pharmacist: ON HOLDTaking Serevent Diskus(Salmeterol Xinafoate) 50 MCG/ACT Aerosol Powder Breath Activated 1 puff Inhalation Twice a day Taking Spiriva Respimat(Tiotropium [place] Monohydrate) 2.5 MCG/ACT Aerosol Solution 2 puffs Inhalation Once a day Taking Tezspire(Tezepelumab-ekko) 210 MG/1.91ML Solution Auto-injector as directed Subcutaneous Medication List reviewed and reconciled with the patient * Allergies: L atex: rash - Allergyno[Allergies Verified] Objective: * Vitals: W t:203lbs, Ht: 63 in, BP:112/62mm Hg, BMI:35.96Index, Ht-cm: 160.02 cm, Wt-k.08 kg. * Examination: G eneral Examination: GENERAL APPEARANCE: in no acute distress. EYES: EOMI. EARS: auditory canal clear, middle ear effusion noted.? NOSE: clear discharge, turbinates pale and swollen. ORAL CAVITY: mucosa moist. THROAT: no erythema, post-nasal drainage noted. NECK: neck supple, no thyromegaly. LYMPH NODES: n o cervical adenopathy. LUNGS: unlabored, clear to auscultation bilaterally. CARDIO: n o murmurs, regular rate and rhythm. ABDOMEN: bowel sounds present, no organomegaly . ? Assessment: * Assessment: 1. A cute bronchitis, unspecified organism - J20.9 (Primary) Plan: * Treatment: * Therapeutic Injections: Dexamethasone, 4mg/mL : 8 mg (Route: Intramuscular) given by [facility] on left deltoid (Acute bronchitis, unspecified organism) * Procedure Codes: [id number] THERAP.INJ. OF MED. INTRAMUSCULAR OR [id number] Dexamethasone, 4mg/mL, Units: 2.00 * Preventive Medicine: Screenings/Counseling: B WA ACTION PLAN Above Normal BMI Follow-up D ietary management education, guidance, and counseling * Follow Up: 3 -5 days if not improving * * Sign off status: Completed Visit Status: C HK (Check Out) true * Provider: Stacy Wing ([facility])MD Date: 03/22/2025 Generated for Brandon escobar/Loren/eTransmitting on: 03/26/2025 10:52 AM EDT History and Physical Notes * HPI (History of Present Illness) Category Sub-Category Detail Notes Category Not es General 3 days - cough CANO no fever - + edema - and no change in orthopnea CANO - sig - sweleing much better Examination Category Sub-Category Detail Notes Category Not es General Examination GENERAL APPEARANCE: in no acute di stress EYES: EOMI EARS: auditory canal clear , middle ear effusion noted NOSE: clear discharge, tur binates pale and swollen THROAT: no erythema, post-na rickey drainage noted NECK: neck supple, no thyr omegaly CARDIO: no murmurs, regular rate and rhythm LUNGS: unlabored, clear to auscultation bilaterally ABDOMEN: bowel sounds present , no organomegaly LYMPH NODES: no cervical adenopat hy ORAL CAVITY: mucosa moist
[2025-03-26] VITALS (21 sets, daily range): BP systolic 93–135; BP diastolic 52–78; PULSE 85–113; TEMP 36.4; O2SAT 92–96; BMI 35.4
--- OUTSIDE RECORDS SUMMARY | 2025-03-26 10:52 | XMS_ITS | Clinical Summary ---
Author Organization [facility] Address [id number] [address] [place] [address] Care Team Providers Care Station Tender Name Role Phone Nanette Sherwood MD Primary Care Provider [phone] Allergies No known active allergies Medications CALCIUM [...] on file Insurance [employer] MEDICARE Care Teams Station Tender Relationship Specialty Start Date End Date Nanette Sherwood MD PCP - General Family Medicine 10/06/19
--- OUTSIDE RECORDS SUMMARY | 2025-03-26 10:52 | XMS_ITS | Encounter Summary ---
Author Organization [facility] Address [address] [place] [address] Care Team Providers Care Software Sales Name Role Phone Nanette Sherwood MD Primary Care Provider [phone] Marshall Briceño MD Primary Care Provider [phone] Source Comments In the event this information is protected by the Federal Confidentiality of Alcohol and Drug AbusePatient Records regulations: The Federal rules restrict any use of the information to criminally investigate or prosecute any alcohol or drug abuse patient.[facility] Encounter Details Date Type Department Care [...] Office Visit [facility] [address] [place] [address] 6 month lab 05/26/2025 3:00 PM EDT Visit (SP) Office Hematology/Oncology [address] [place] [address] Ginger Bean APRN.ANIMAL HUSBANDRY MANAGER [address] [place] [address] 6 month follow up / BRM pt documented as of this encounter Visit Diagnoses Not on filedocumented in this encounter Care Teams Software Sales Relationship Specialty Start Date End Date Nanette Sherwood MD [address] [place] [address] PCP - General 08/01/05 07/22/23 Marshall Briceño MD [address] [place] [address] PCP - General Family Medicine 07/23/23 documented as of this encounter
--- OUTSIDE RECORDS SUMMARY | 2025-03-26 10:52 | XMS_ITS | Encounter Summary ---
Author Organization [facility] Address [address] [place] [address] Care Team Providers Care Biostatistics Director Name Role Phone Nanette Sherwood MD Primary Care Provider [phone] Marshall Briceño MD Primary Care Provider [phone] Source Comments In the event this information is protected by the Federal Confidentiality of Alcohol and Drug AbusePatient Records regulations: The Federal rules restrict any use of the information to criminally investigate or prosecute any alcohol or drug abuse patient.[facility] Encounter Details Date Type Department Care [...] N ot on file 07/22/2020 Data from: [email or web address] Last address used for calculation Not [...] Description 05/22/2025 3:30 PM EDT Office Visit [facility] [address] [place] [address] 6 month lab 05/26/2025 3:00 PM EDT Visit (SP) Office Hematology/Oncology [address] [address] Ginger Bean APRN.NURSING ASSISTANT [address] [place] [address] 6 month follow up / BRM pt documented as of this encounter Visit Diagnoses Not on filedocumented in this encounter Care Teams Biostatistics Director Relationship Specialty Start Date End Date Nanette Sherwood MD [address] [place] [address] PCP - General 08/01/05 07/22/23 Marshall Briceño MD [address] [place] [address] PCP - General Family Medicine 07/23/23 documented as of this encounter
--- OUTSIDE RECORDS SUMMARY | 2025-03-26 10:52 | XMS_ITS ---
Author Organization [facility] Address [address] [place], [place] [address] Care Team Providers Care Orchard Worker Name Role Phone Marshall Briceño MD Primary Care Provider [phone] Active Problems Problem Noted Date Diagnosed Date B12 deficiency 07/13/2017 Diffuse large B cell lymphoma 02/21/2013 Current Treatment and Therapy Plans No current plan information found. Past Treatment and Therapy Plans
--- OUTSIDE RECORDS SUMMARY | 2025-03-26 10:52 | XMS_ITS | Patient Health Record ---
Author Organization [facility] [place] Address [address] [place] [address] Care Team Providers Care Kelly Machine Operator Name Role Phone Domenico Wing Primary Care Provider [phone] JbChester Unavailable [phone] Allergies Allergen (clinical drug ingredient) Drug/Non Drug [...] A DAY Inhalation for 90 Days Active Serevent Diskus 50 MCG/ACT 1 puff Inhala tion Twice a day Active Aspirin 81 MG 1 tablet Orally Once a day for 30 day(s) 11/02/2024 Active Spiriva Respimat 2.5 MCG/ACT 2 puffs Inhalation Once a day 11/02/2024 Active Potassium Chloride ER 10 MEQ 1 tablet with food Orally Twice a day ON HOLD Active Albuterol Sulfate (2.5 MG/3ML) 0.083% INHALE 1 VIAL VIA NEBULIZER EVERY 4 HOURS Inhalation for 17 Days Active Levothyroxine Sodium 100 MCG TAKE 1 TABLET BY MOUTH EVERY DAY Oral for 90 Days Active Azithromycin 250 MG 2 tabs today then 1 tab Orally daily for 5 days 03/22/2025 Active Montelukast Sodium 10 MG TAKE 1 TABLET B Y MOUTH EVERY DAY Oral for 90 Days Active Furosemide 20 MG 1 tablet Orally Once a day for 30 day(s) 11/02/2024 Active HyperSal 3.5 % INHALE 4 ML VIA NEBULIZER TWO TIMES DAILY. Inhalation for 30 Days Active Calcitonin ([place]) 200 UNIT/ACT 1 spray in 1 nostril, alternating nostrils daily Nasally Once a day DX M48.56XA for 90 days 03/14/2025 Active Fluticasone-Salmeterol 500-50 MCG/ACT 1 puff Inhalation Twice a day Active Immunizations Vaccine Route Administration Date Status Comme nts Arexvy Unknown 03/21/2024 Administered Comirnaty Pfizer Syringe Pre -Filled 30 mcg/0.3 mL Unknown 05/12/2024 Administered Flu, Fluad (10764) 65 yrs + High Dose Seasonal (9069-8303) Unknown 05/12/2024 Administered Pneumococcal (Pneumovax 23) Unknown [...] ast year? No Points 0 Interpretation Negative Problems Problem Type SNOMED Code ICD Code Onset Dates Problem Status W/U Status Risk Notes Problem Morbid obesity (disorder) (083726013) Morbid (severe) obesity due to excess calories (E66.01) Active confirmed Problem Complete atrioventricular block (61028283) Atrioventricular block, complete (I44.2) Active confirmed Problem 40621102 Centrilobular emphysema (J43.2) Active confirmed Problem Uncomplicated severe persistent asthma (333821793) Severe persistent asthma, uncomplicated (J45.50) Active confirmed Problem Chronic respiratory failure (75783947) Chronic respiratory failure with hypoxia (J96.11) Active confirmed Problem 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 Problem 775362406 jail (current) use of inhaled steroids (Z79.51) Active confirmed Problem Hypothyroidism (51700283) Hypothyroidism (E03.9) Active confirmed Problem Obesity (299767667) Obesity (E66.9) Active conf irmed Problem Non-Hodgkin lymphoma (753270264) Lymphoma (C85.90) Active confirmed Problem Sleep apnea (60620869) Sleep apnea (G47.30) Active confirmed Problem Obstructive sleep apnea syndrome (61030336) JUAAN (obstructive sleep apnea) (G47.33) Active confirmed Problem Cardiac pacemaker in situ (274987237) Pacemaker (Z95.0) Active confirmed Problem CVA - Cerebrovascular accident (396117222) CVA (cerebral vascular accident) (I63.9) Active confirmed Problem Thyroid nodule (993837873) Thyroid nodule (E04.1) Active confirmed Problem Pathological fracture of vertebra (726692266) Compression fracture of lumbar spine, non-traumatic (M48.56XA) Active confirmed Problem Thoracic radiculopathy (68985715) Thoracic radiculopathy (M54.14) Active confirmed Problem Ex-tobacco user (finding) (883409095) History of tobacco abuse (Z87.891) Active confirmed Problem 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14347387) 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) Active confirmed Problem Lumbar radiculopathy (766567382) Lumbar radiculopathy, chronic (M54.16) Active confirmed Problem Prolonged QT interval (210347540) Prolonged QT interval (R94.31) Active confirmed Problem Secondary pulmonary hypertension (79578088) Other secondary pulmonary hypertension (I27.29) Active confirmed Problem Pulmonary hypertension (06675703) Pulmonary hypertension (I27.20) Active confirmed Vital Signs Heart Rate 81 /min 02/01/2025 RA Activity/Res ting Temperature 97.0 degrees Fahrenheit 02/01/2025 RA A ctivity/Resting Respiratory Rate 20 /min 02/01/2025 RA Activity /Resting Blood pressure diastolic 62 mm Hg 03/22/2025 Oximetry 92 % 02/01/2025 RA Activity/Res ting Height 63 in 03/22/2025 Blood pressure systolic 112 mm Hg 03/22/2025 Weight 203 lbs 03/22/2025 BMI 35.96 kg/m2 03/22/2025 Encounters Encounter Location Date Provider Diagnosis [facility] [place] [address] [place] [address] 11/02/2024 Chester Ferro Severe persistent as thma, uncomplicated J45.50 ; Centrilobular emphysema J43.2 ; Chronic respiratory failure with hypoxia J96.11 ; JUANA (obstructive sleep apnea) G47.33 ; Cystic fibrosis carrier Z14.1 ; Prolonged QT interval R94.31 ; Radiation fibrosis of lung J70.1 ; Other secondary pulmonary hypertension I27.29 ; History of tobacco abuse Z87.891 ; long term (current) use of inhaled steroids Z79.51 and Obesity E66.9 [facility] [address] [place] [address] 02/01/2025 Chester Ferro Severe persistent as thma, uncomplicated J45.50 ; Centrilobular emphysema J43.2 ; Chronic respiratory failure with hypoxia J96.11 ; JUANA (obstructive sleep apnea) G47.33 ; Cystic fibrosis carrier Z14.1 ; Prolonged QT interval R94.31 ; Radiation fibrosis of lung J70.1 ; Other secondary pulmonary hypertension I27.29 ; History of tobacco abuse Z87.891 ; long term (current) use of inhaled steroids Z79.51 and Obesity E66.[address] [address] 03/13/2025 Domenico Wing Morbid (severe) obes ity due to excess calories E66.01 ; Atrioventricular block, complete I44.2 ; Cystic fibrosis carrier Z14.1 ; JUANA (obstructive sleep apnea) G47.33 ; Severe persistent asthma, uncomplicated J45.50 ; Pacemaker Z95.0 ; CVA (cerebral vascular accident) I63.9 ; Lymphoma C85.90 ; Thyroid nodule E04.1 ; Thoracic radiculopathy M54.14 ; Lumbar radiculopathy 724.4 ; Lumbar radiculopathy, chronic M54.16 ; Other injury of unspecified body region, initial encounter T14.8XXA and Compression fracture of lumbar spine, non-traumatic M48.56XA [address] [address] 03/22/2025 Domenico Hoy Acute bronchitis, unspecified organism J20.9 [facility] [address] [place] [address] 10/13/2024 Chester Ferro [facility] [address] [facility] [address] 03/13/2025 Domenico Wing Thyroid nodule E04.1 and Lymphoma C85.90 [facility] [address] [place] [address] 03/13/2025 Domenico Wing Assessments Encounter Date Diagnosis (ICD Code) Assessment [...] CT imaging). As he is recovering from influenza/hospitali zation, will see how he does over the [...] an appointment with Dr. Berg next month. 03/13/2025 Morbid (severe) obesity due to excess calories (ICD-10 - E66.01) disussed weight - has been stabel - working on diet and exrecise 03/13/2025 Atrioventricular block, complete (ICD-10 - I44.2) 03/22/2025 Acute bronchitis, unspecified organism (ICD-10 - J20.9) Rest and drink more liquids, especially water. You may use a humidifier or vaporizer to help keep the drainage moist. Ciod-xar-sqfspek Nasal Saline may help the stuffy and runny nose. Use Ibuprofen and or Tylenol as needed for fever, chills, body aches or pain. Children 5 years old should not be given nxac-owp-jpmehhy cough and cold medications such as guaifenesin and dextromethorphan. If you're over age 5, you may try kxli-rud-osmmwkn cold medications such as guaifenesin and dextromethorphan, [...] to the emergency room or call 911 03/13/2025 Thyroid nodule (ICD-10 - E04.1) 03/13/2025 Lymphoma (ICD-10 - C85.90) 03/13/2025 Cystic fibrosis carrier (ICD-10 - Z14.1) 02/01/2025 Centrilobular emphysema (ICD-10 - J43.2) Asthma-COPD overlap 11/02/2024 Chronic respiratory failure with hypoxia (ICD-10 - J96.11) Sfty-xv-adip encounter performed with the patient to document [...] JUANA (obstructive sleep apnea) (ICD-10 - G47.33) Hlon-zg-aoby encounter performed with the patient to document continued need for PAP therapy. -Current DME: [facility] -PS12/14/2018; Initial AHI: 59 (3% criteria), 45 (4% criteria) -Last PAP titration: 12/28/2018 @ 29evF4R -CPAP set-up: 01/11/2019 -No compliance available -Mask/harness [...] hypercapnia, so it is unlikely he has obesity-hypoventila tion syndrome (OHS) and I do not feel [...] bedtime and with any naps. -Note: This pwtp-ad-fpap visit comes with my authorization that the patient's DME may request to renew, reorder, and/or replace tubing, supplies, mask, and/or PAP device (if applicable). 02/01/2025 Chronic respiratory failure with hypoxia (ICD-10 - J96.11) Ibkd-av-zymi encounter performed with the patient to document [...] the O2 either. Continue O2 as prescribed 03/13/2025 JUANA (obstructive sleep apnea) (ICD-10 - G47.33) 03/13/2025 Severe persistent asthma, uncomplicated (ICD-10 - J45.50) 02/01/2025 JUANA (obstructive sleep apnea) (ICD-10 - G47.33) Hysl-ns-ktte encounter performed with the patient to document continued need for PAP therapy. -Current DME: [facility] -PS12/14/2018; Initial AHI: 59 (3% criteria), 45 (4% criteria) -Last PAP titration: 12/28/2018 @ 70taW4W -Compliance reviewed 01/02/2025 - 01/31/2025 -Overall use: 30 (100%) days ->4 hour use: 29/ (97%) days -Settings: AirSense 11 AutoSet CPAP [id number] -Residual AHI: 2.3 -Air leak (median): 15.7L/min [...] bedtime and with any naps. -Note: This vjmo-zt-jepg visit comes with my authorization that the patient's DME may request to renew, reorder, and/or replace tubing, supplies, mask, and/or PAP device (if applicable). 11/02/2024 Cystic fibrosis carrier (ICD-10 - Z14.1) Evaluted at [facility] under Dr. Mayra Berg. Continue pulmonary toilet [...] fibrosis carrier (ICD-10 - Z14.1) Evaluted at [facility] under Dr. Mayra Berg. Continue pulmonary toilet (hypertonic saline ~3%, PEP). Hypertonic saline 7% resulted in hypernatremia contributing to edema. Continue F/U with Dr. Berg. 03/13/2025 Pacemaker (ICD-10 - Z95.0) 03/13/2025 CVA (cerebral vascular accident) (ICD-10 - I63.9) 02/01/2025 Prolonged QT interval (ICD-10 - R94.31) [...] secondary pulmonary hypertension (ICD-10 - I27.29) Reviewed [facility] notes - felt predominantly group 2 (cardiac), [...] J70.1) Secondary to treatment for non-Hodgkin lymphoma. 03/13/2025 Lymphoma (ICD-10 - C85.90) 03/13/2025 Thyroid nodule (ICD-10 - E04.1) 02/01/2025 Other secondary pulmonary hypertension (ICD-10 - I27.29) Reviewed [facility] notes - felt predominantly group 2 (cardiac), [...] from cessation, # pack-years). 11/02/2024 long term (current) use of inhaled steroids (ICD-10 - Z79.51) Patient was counseled to rinse & gargle with water after inhaled corticosteroid use. 02/01/2025 History of tobacco abuse (ICD-10 - Z87.891) 1ppd x 15 years, quit ~1987 This patient does not meet current LDCT criteria (e.g. age, time from cessation, # pack-years). 03/13/2025 Thoracic radiculopathy (ICD-10 - M54.14) 03/13/2025 Lumbar radiculopathy (ICD9-CM - 724.4) 02/01/2025 long term (current) use of inhaled steroids (ICD-10 - Z79.51) Patient was counseled to rinse & gargle with water after inhaled corticosteroid use. 11/02/2024 Obesity (ICD-10 - E66.9) Patient's weight is inducing a restrictive pulmonary physiology. Weight loss indicated: Decrease calories, increase activity. 02/01/2025 Obesity (ICD-10 - E66.9) Patient's weight is inducing a restrictive pulmonary physiology. Weight loss indicated: Decrease calories, increase activity. 03/13/2025 Lumbar radiculopathy, chronic (ICD-10 - M54.16) 03/13/2025 Other injury of unspecified body region, initial encounter (ICD-10 - T14.8XXA) 03/13/2025 Compression fracture of lumbar spine, non-traumatic (ICD-10 - M48.56XA) 03/13/2025 Other Recommended oral ping a rescue inhaler on hand and to be aware of asthma triggers. Go to ER if breathing becomes difficult and prevents you from participating in normal daily activities Plan Of Treatment Pending Test Test Name Order Date OCCULT BLOOD, FECAL, IMMUNOASSAY 025 US THYROID 03/13/2025 XR DEXA BONE DENSITY 03/13/2025 PSA, SCREENING 03/13/2025 US soft tissue head and neck 03/13/2025 Next Appt Details Provider Name:Domenico Wing, 10:00:00 AM, [address] [place], [address], Insurance Providers Payer Name Payer Address Payer Phone Subscriber Number Group Number Insured Name Patient Relationship to Insured Coverage Start Date Coverage End Date [facility] [employer] [address] [address] [place] [address] [id number] Dorian Juarez Self - patient is the insured Medications Administered Medication Instructions Date of Administration Dosage Notes Dexamethasone, 4mg/mL 03/22/2025 8 mg Medical (General) History Medical History History ICD [...] Catheterization cardiac pacemeker Hospitalization History Reason Date(Month/Year) Pneumonia 02/2025 COPD Exacerbation-TBH 10/11/2024
--- OUTSIDE RECORDS SUMMARY | 2025-03-26 10:52 | XMS_ITS | Clinical Summary ---
Author Organization [facility] Address [address] [place] [address] Phone Care Team Providers Care Press Supervisor Name Role Phone Unavailable Primary Care Provider [...]
--- OUTSIDE RECORDS SUMMARY | 2025-03-26 10:52 | XMS_ITS | Clinical Summary ---
Author Organization [facility] [place] Address [address] [place] [id number] Care Team Providers Care Manager Contract Name Role Phone Marshall Briceño MD Primary Care Provider [phone] Allergies Active Allergy Reactions Criticality Noted Date [...] original vaccine, a ge 12+ yr, monovalent (Wanderfly - PURPLE TOP) 11/13/2020,10/22/2020 influenza (HD-IIV3) vaccine, [...] is lower risk 8 06/06/2024 Data from: https://www.neighborhoodatlas.medicine.[facility].edu/. Last address used for calculation [address] [place] [address] [address] 06/06/2024 Sex and Gender Information [...] Description 05/22/2025 3:30 PM EDT Office Visit [facility] [address] [place] [address] [place] [address] 6 month lab 05/26/2025 3:00 PM EDT Visit (SP) Office Hematology/Oncology [address] [place] [address] [place] [address] Ginger Bean, ULTRASOUND SPECIALIST.[facility] [address] [address] 6 month follow up / BRM pt Health Maintenance Due Date Last Done Comments Anxiety Screening 1963 Depression Screening 1963 Hepatitis C Screening 1963 Advance Directive Discussion 08/17/2024 Medicare Advantage Annual We llness Visit 08/17/2024 Influenza Vaccine (#1) 2025 4, 05/11/2023, 05/24/2021, Additional history exists Diabetes Screening [...] COMPREHENSIVE METABOLIC PANEL (11/15/2024 1:39 PM EDT) [facility] Protein, Total 6.8 6.3 - 8.0 g/dL [...] [facility] Comment: The [place] Diabetes Association (ADA) provides guidance for cutoff [...] Standards of Medical Care in Diabetes 2016, [place] [employer] Association. Diabetes Care. 2016.39(Suppl 1). BUN [...] 11/15/2024 1:58 PM EDT us Arabella Gayle ULTRASOUND SPECIALIST.[facility] Final Resul t [facility] [address] [place] [address] from Last 3 Months or Most Recently Relevant to Health Maintenance Insurance [address] [place] [address] [facility] [employer] PPO Member Subscriber Plan / Payer (Ef fective 2023-Present) Name:Dorian Juarez Relation to Subscriber:Self Name:Dorian Juarez Payer ID:[id number] (NAIC) Type:PPO Address: [place] [id number] Care Teams Manager Contract Relationship Specialty Start Date End Date Marshall Briceño MD [address] [place] [address] PCP - General Family Medicine 07/23/23
--- OUTSIDE RECORDS SUMMARY | 2025-03-26 10:53 | XMS_ITS | CCD ---
Author Organization [facility] CliniSynm Care Team Providers Care [employer] Revenue Officer Name Role Phone CRESCENCIO FLETCHER Referring Unavailable WILL SHERWOOD Primary Care Unavailable MYA BHAKTA Attending Unavailable MYA BHAKTA Admitting Unavailable [place] Procedure Practitioner Unavailab CONNOR Herrera Surgeon Unavailable MYA BHAKTA Surgeon Unavailable [place] Procedure Practitioner Unavailab WILL Jackson Primary Care [...] Unavailable Will Sherwood MD Primary Care Provider [phone] Pito Patterson. Primary Care Physician [phone] Pito Patterson MD Primary Care Provider [phone] Unallocated Mohit VENTURA Provider Primary Care Provi preet Claudia HERNANDEZ, Crys Unavailable Connor Crawley DO Unavailable Pito Patterson MD Primary Care Provider DO Connor Crawley Attending Provider [phone] MD Pito Patterson Primary Care Provider [phone] Unallocated Mohit VENTURA Provider Primary Care Provi [...] Unavailable ROSS, PITO E Primary Care Unavailable Marlys Olivia Primary Care Physician Marlys Olivia Admitting Unavailable CorwinMarlys Attending Unavailable Navarro, Pito EJeffery Attending Unavailable CorwinMarlys Attending Unavailable CorwinMarlys Attending Unavailable CorwinMarlys Attending Unavailable Navarro, Pito EJeffery Attending Unavailable Navarro, Pito EJeffery Attending Unavailable Navarro, Pito EJeffery Attending Unavailable Oni MCKEON Attending Unavailable Oni MCKEON Attending Unavailable CorwinMarlys Admitting Unavailable Corwin, Marlys L Attending Unavailable Corwin, Marlys L Admitting Unavailable Corwin, Marlys L Attending Unavailable Navarro, Pito EJeffery Admitting Unavailable MARKUS CERNA Attending Unavailable Navarro Pito EJeffery Attending Unavailable DANIELLA EASTON Attending Unavailable DANIELLA EASTON Attending Unavailable CONNOR CARRERA Referring Unavailable CONNOR CARRERA Referring Unavailable CONNOR CARRERA Referring Unavailable CorwinMarlys Admitting Unavailable Elpidio Wing MD Primary Care Provider [phone] CRYS TAYLOR Attending Unavailable GIL ANGULO Attending Unavailable CRYS TAYLOR Attending Unavailable TYLER DRAPER Referring Unavailable CONNOR CRAWLEY Attending Unavailable CRYS TAYLOR Referring Unavailable CONNOR CRAWLEY Attending Unavailable CONNOR CRAWLEY Attending Unavailable CRYS TAYLOR Attending Unavailable Allergies Allergy Classification Reported Allergen(s) Allergy Type Date of Onset Reaction(s) Facility (16 sources) Spironolactone; Translations: [SPIRONOLACTONE ] Drug Allergy 2 Other: See Comments [facility] (5 sources) Latex Propensity to adverse reactions 5 [...] 1 VIAL VIA NEBULIZER EVERY 4 HOURS, [id number], 168, cm, 01/09/25 11:21:00 EST, Height/Length Dosing, 101.3, kg, 08/25/24 [...] 1 VIAL VIA NEBULIZER EVERY 4 HOURS, [facility], 161, cm, 02/15/24 10:32:00 EDT, Height/Length Dosing, 102, kg, 02/15/24 10:32:00 EDT, Weight Dosing Start Date: 02/22/24 Status: Ordered Start: 10-19-2023 take 1 dose by inhal ation every four hours albuterol 0.083% Inh Kasie 3 mL See Instructions, 300 mL, Refill(s) 3, INHALE 1 VIAL VIA NEBULIZER EVERY 4 HOURS, [facility][id number], 168, cm, 10/19/23 8:08:00 EST, Height/Length [...] mL, NEB, q4hr, 300 mL, Refill(s) 3, [facility][id number], 162, cm, 10/28/22 15:18:00 EDT, Height/Length Dosing, 99.8, kg, 10/28/22 15:18:00 EDT, Weight Dosing Start Date: 12/17/22 Status: Ordered Start: 12-17-2022 albuterol 0.08 3% Inh Kasie 3 mL See Instructions, 150 mL, Refill(s) 0, INHALE 1 VIAL VIA NEBULIZER EVERY 6 HOURS, [facility], 162, cm, 10/28/22 15:18:00 EDT, Height/Length Dosing, [...] hydrochloride 0.137 mg/actuat metered dose nasal spray (20 sources) Histamine-1 Receptor Antagonist Start: 06-01-20 Azelastine [...] DAY, # 360 mL, Refills(s) 3, Pharmacy: [facility] [address], 168, cm, 04/22/24 10:00:00 EDT, Height/Length Dosing, [...] BID, # 120 mL, Refills(s) 11, Pharmacy: [facility]/pharmacy #[id number], 168, cm, 10/19/23 8:08:00 EST, [...] BID, # 120 mL, Refills(s) 11, Pharmacy: [facility]/pharmacy #[id number], 162, cm, 10/28/22 15:18:00 [...] calcium carbonate 1500 mg or al tablet (19 sources) calcium carbonat e 1500 (600 Ca) [...] tablet (1 source) Histamine-1 Receptor Antagonist Start: 025 take 1 tablet by mouth once daily [...] by mouth. ciclopirox 10 mg/ml medicated shampoo (5 sources) Start: 02-02-2025 Ciclopirox 1 % shampoo Indications: Other seborrheic dermatitis Lather on wet hair, leave on 5 min, rinse 2-3 x week, 30 day supply 120 mL 11 02/02/2025 Active cyanocobalamin, vitamin B-12, (VITAMIN B-12 [...] / salmeterol 0.05 mg/actuat dry powder inhaler (5 sources) Corticosteroid, beta2-Adrenergic Agonist Fluticasone-Salmet rowan 500-50 [...] Active Start: 03-09-2023 take 1 capsule by [facility] once daily at bedtime gabapentin 300 mg Cap 300 mg = 1 cap(s), Oral, Once a day (at bedtime), # 30 cap(s), Refills(s) 0, Pharmacy: [facility]/pharmacy #[id number], 168, cm, 03/09/23 11:04:00 EDT, Height/Length Dosing, 103, kg, 03/09/23 11:04:00 EDT, Weight Dosing Start Date: 03/09/23 Status: Ordered Start: 01-22-2023 take 1 capsule by [facility] once daily at bedtime gabapentin 300 mg Cap 300 mg = 1 cap(s), Oral, Once a day (at bedtime), # 30 cap(s), Refills(s) 0, Pharmacy: [facility]/pharmacy #[id number], 162, cm, 01/22/23 13:19:00 [...] nasal route twice daily ipratropium Nasal 0.06% Nellie 2 spray(s), Nasal, BID for 90 day(s), 45 mL, Refill(s) 3, PLACE 2 SPRAYS IN EACH NOSTRIL TWO TIMES DAILY., [facility]/pharmacy #[id number], 168, cm, 03/09/23 11:04:00 EDT, Height/Length Dosing, 103, kg, 03/09/23 11:04:00 EDT, Weight Dosing Start Date: 03/13/23 Stop Date: 03/07/24 Status: Ordered Start: 02-20-2023 take 1 dose nasal [place] twice daily, then take 2 spray(s) nasal route twice daily ipratropium Nasal 0.06% Nellie 2 spray(s), Nasal, BID, 1 EA, Refill(s) 1, PLACE 2 SPRAYS IN EACH NOSTRIL TWO TIMES DAILY., [facility]/pharmacy #[id number], 162, cm, 01/22/23 13:19:00 EDT, Height/Length Dosing, 98.3, kg, 01/22/23 13:19:00 EDT, Weight Dosing Start Date: 02/20/23 Status: Ordered Start: 01-22-2023 take 1 dose nasal [place] twice daily, then take 2 spray(s) nasal route twice daily ipratropium Nasal 0.06% Nellie 2 spray(s), Nasal, BID, 1 EA, Refill(s) 1, PLACE 2 SPRAYS IN EACH NOSTRIL TWO TIMES DAILY., [id number], cm, 01/22/23 13:19:00 EDT, Height/Length Dosing, 98.3, kg, 01/22/23 13:19:00 EDT, Weight Dosing Start Date: 01/22/23 Status: Ordered levothyroxine sodium 0.1 mg oral tablet (20 sources) l-Thyroxine Start: 01-31-2025 take 1 tablet by mouth once daily levothyroxine 100 mcg (0.1 mg) Tab See Instructions, TAKE 1 TABLET BY MOUTH EVERY DAY, # 90 tab(s), Refills(s) 0, Pharmacy: [id number], 168, cm, 11/24/24 13:08:00 EDT, Height/Length Dosing, 100.3, kg, 11/24/24 13:08:00 EDT, Weight Dosing Start Date: 01/31/25 Status: Ordered Quantity: 90.0 Unit: tab(s) Repeat number: 1 Start: 04-22-2024 take 1 tablet by noe th once daily levothyroxine 100 mcg (0.1 mg) Tab See Instructions, TAKE 1 TABLET BY MOUTH EVERY DAY, # 90 tab(s), Refills(s) 0, Pharmacy: [id number], 161, cm, 02/15/24 10:32:00 EDT, Height/Length Dosing, 102, kg, 02/15/24 10:32:00 EDT, Weight Dosing Start Date: 04/22/24 Status: Ordered Start: 10-19-2023 take 1 tablet by noe th once daily levothyroxine 100 mcg (0.1 mg) Tab 100 mcg = 1 tab(s), Oral, Daily, # 90 tab(s), Refills(s) 0, Pharmacy: [facility]/pharmacy #[id number], 168, cm, 10/19/23 8:08:00 EST, [...] before breakfast. loratadine 10 mg oral tablet (19 sources) take 1 tablet by mouth once [...] once daily. montelukast 10 mg oral tablet (20 sources) Leukotriene Receptor Antagonist Start: 04-22-2024 montelukast [...] Refill(s) 0, Oxygen - patient states his art museum aide just increased this to 4LPM Start Date: 02/15/24 Status: Ordered Repeat number: 1 Start: 02-15-2024 Oxygen - for H ome 4 L/min, Daily, Refill(s) 0, Oxygen - patient states his art museum aide just increased this to 4LPM Start Date: 02/15/24 Status: Ordered polyethylene glycol 3350 29319 mg powder for oral solution (15 sources) [...] 3 EA, Refill(s) 3, [facility]), 168, cm, 03/09/23 11:04:00 EDT, [...] daily. salmon calcitonin 200 unt/actuat nasal spray (19 sources) Calcitonin calcitonin, salmon, (Miacalcin) 200 UNIT/ACT [...] 04/05/2024 Active Tezspire 210 MG/1.91ML solution auto-injector (19 sources) Start: 04-05-2024 Tezspire 210 MG/1.91ML solution [...] by in halation once daily Tiotropium [place] Active 1 CAP INHALATION Daily June 01, [...] procedure, # 2 tab(s), Refills(s) 0, Pharmacy: [facility]/pharmacy #[id number], 168, cm, 03/09/23 11:04:00 [...] Take 10 mEq by mouth 07/28/2023 Active Problems Active Problems Problem Classification Problem Date Documented Date Episodic/Chronic Chronic kidney disease (19 sources) Chronic kidney disease stage 3A ; [...] lymph nodes, unspecified] Onset: 11-15-2024 04-19-2024 Episodic Mycoses (2 sources) Onychomycosis; Translations: [Tinea unguium] 03-15-2025 Episodic Neoplasms of unspecified nature or uncertain [...] nevus; Translations: [Nevus, non-neoplastic] 08-04-2024 Episodic Other connective tissue disease (2 sources) Pain of toe of left foot; Translations: [Pain in left toe(s)] 03-15-2025 Episodic Other connective tissue disease (2 sources) Pain of toe of right foot; Translations: [Pain in right toe(s)] 03-15-2025 Episodic Other diseases of veins and lymphatics (2 sources) Peripheral venous insufficiency; Translations: [Venous insufficiency (chronic) (peripheral)] 03-15-2025 Episodic Other eye disorders (5 sources) Anisocoria; Translations: [ANISOCORIA] Onset: 05-16-2021 Chronic Other fractures (1 source) Compression fracture of vertebral column 02-24-2019 Episodic Other fractures (6 sources) Wedge fracture of thoracic vertebra 10-28-2022 Episodic Other inflammatory condition of skin (2 sources) Seborrheic dermatitis; Translations: [Other seborrheic dermatitis] 02-02-2025 Episodic Other injuries and conditions due to external causes (4 sources) Local infection of wound; Translations: [Other injury of unspecified body region, initial encounter] 06-09-2024 Episodic Other nervous system disorders (3 sources) Walking disability 08-24-2023 Chronic Other nervous system disorders (16 sources) Chronic pain; Translations: [Other chronic pain] [...] tissue, unspecified] 04-19-2024 Episodic Other skin disorders (6 sources) Seborrheic keratosis; Translations: [Other seborrheic keratosis] 05-03-2024 Episodic Other skin disorders (6 sources) Actinic keratosis; Translations: [Actinic keratosis] 05-03-2024 Episodic Other skin disorders (2 sources) Lentigo simplex; Translations: [Other melanin hyperpigmentation] 08-04-2024 Episodic Other upper respiratory infections (16 sources) Chronic sinusitis; Translations: [Chronic sinusitis, unspecified] Onset: 07-02-2023 Resolved: 05-31-2024 05-31-2024 Chronic Residual codes; unclassified (5 sources) Localized edema; Translations: [LOCALIZED EDEMA] Onset: 02-07-2022 Episodic Respiratory failure; insufficiency; arrest (adult) (19 sources) Chronic hypoxemic respiratory failure; Translations: [Chronic respiratory failure with hypoxia] Onset: 04-15-2024 Resolved: 05-31-2024 10-19-2023 Chronic Spondylosis; intervertebral disc disorders; other back problems (1 source) Backache 02-15-2025 Episodic Unclassified (1 source) CONTACT W/AND (SUSP) EXPOS COVID-19; Translations: [CONTACT W/AND (SUSP) EXPOS COVID-19] Onset: 05-28-2021 Unclassified (2 sources) Asymptomatic microscopic hematuria 04-22-2024 Past or Other Problems Problem Classification Problem Date Documented Date Episodic/Chronic Abdominal hernia (20 sources) Hernia of anterior abdominal wall; Translations: [Ventral hernia without obstruction or gangrene] Onset: 05-21-2023 Resolved: 05-31-2024 10-28-2022 Episodic Acute cerebrovascular disease (20 sources) Cerebrovascular accident; Translations: [Cerebral infarction, unspecified] Onset: 08-03-2020 Resolved: 05-31-2024 05-31-2024 Chronic Administrative/social admission (16 sources) Walking disability; Translations: [Other reduced mobility] Onset: 09-09-2023 Resolved: 05-31-2024 05-31-2024 Episodic Aspiration pneumonitis; food/vomitus (1 source) Pneumonitis due to inhalation of food and vomit; Translations: [PNEUMONITIS D/T INHAL FOOD AND VOMIT] Onset: 09-11-2021 Episodic Asthma (16 sources) Uncomplicated moderate persistent asthma; Translations: [Moderate persistent asthma, uncomplicated] Onset: 05-31-2024 Resolved: 05-31-2024 05-31-2024 Chronic Calculus of urinary tract (20 sources) Kidney stone; Translations: [Calculus of kidney] Onset: 05-21-2023 Resolved: 05-31-2024 06-07-2019 Episodic Cancer of prostate (20 sources) Malignant tumor of prostate; Translations: [Malignant [...] OP CDI policy. 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; [...] 05-31-2024 07-13-2017 Episodic Other aftercare (1 source) half-way (current) use of aspirin; Translations: [FPC CURRENT USE OF ASPIRIN] Onset: 05-28-2021 Episodic Other aftercare (1 source) Other skilled nursing (current) drug therapy; Translations: [OTH LIGHTING TECHNICIAN CURRENT DRUG THERAPY] Onset: 05-28-2021 Episodic Other bone disease and musculoskeletal deformities (4 sources) Osteolysis, unspecified site; Translations: [OSTEOLYSIS UNSPECIFIED SITE] Onset: 09-10-2021 Episodic Other circulatory disease (7 sources) Personal history of transient ischemic attack (TIA), and cerebral infarction without residual deficits; Translations: [PERS HX TIA AND CI NO RESID DEFICIT] Onset: 09-06-2021 Episodic Other circulatory disease (16 sources) History of cerebrovascular accident; Translations: [Personal history of transient ischemic attack (TIA), and cerebral infarction without residual deficits] Onset: 05-23-2022 Resolved: 05-31-2024 05-31-2024 Episodic Other connective tissue disease (1 source) Muscle weakness (generalized); Translations: [MUSCLE WEAKNESS GENERALIZED] Onset: 05-28-2021 Episodic Other ear and sense organ disorders (19 sources) Hearing loss; Translations: [Unspecified hearing loss, unspecified ear] Onset: 05-21-2023 Resolved: 05-31-2024 04-07-2023 Chronic Other fractures (16 sources) Compression fracture of thoracic spine; Translations: [Wedge compression fracture of unspecified thoracic vertebra, subsequent encounter for fracture with routine healing] Onset: 05-31-2024 Resolved: 05-31-2024 05-31-2024 Episodic Other hereditary and degenerative nervous system conditions (20 sources) Essential tremor; Translations: [Essential tremor] Onset: 07-31-2021 Resolved: 05-31-2024 10-28-2022 Chronic Other lower respiratory disease (6 sources) Other forms of dyspnea; Translations: [OTHER FORMS OF DYSPNEA] Onset: 04-16-2022 Episodic Other lower respiratory disease (3 sources) Shortness of breath; Translations: [SHORTNESS OF BREATH] Onset: 05-15-2021 Episodic Other lower respiratory disease (1 source) Hypoxemia; Translations: [HYPOXEMIA] Onset: 05-28-2021 Episodic Other lower respiratory disease (16 sources) Cough; Translations: [Cough] Onset: 07-17-2021 Resolved: 05-31-2024 05-31-2024 Episodic Other lower respiratory disease (16 sources) Dyspnea; Translations: [Dyspnea, unspecified] Onset: 07-17-2021 Resolved: 05-31-2024 05-31-2024 Episodic Other lower respiratory disease (16 sources) Hypoxia; Translations: [Hypoxemia] Onset: 11-23-2018 Resolved: 05-31-2024 05-31-2024 Episodic Other lower respiratory disease (16 sources) Wheezing; Translations: [Wheezing] Onset: 07-02-2023 Resolved: 05-31-2024 05-31-2024 Episodic Other nervous system disorders (20 sources) Neuropathy of upper limb; Translations: [Unspecified mononeuropathy of unspecified upper limb] Onset: 05-21-2023 Resolved: 05-31-2024 01-22-2023 Chronic Other nutritional; endocrine; and metabolic disorders (18 sources) Obesity caused by energy imbalance; Translations: [Other obesity due to excess calories] Onset: 05-31-2024 Resolved: 05-31-2024 10-16-2023 Chronic Other nutritional; endocrine; and metabolic disorders (19 sources) Severe obesity; Translations: [Morbid (severe) obesity due to excess calories] Onset: 08-03-2020 Resolved: 05-31-2024 05-27-2023 Chronic Comment on above: Noted in 05/21/2023 U T page 1 note, added per outpatient CDI policy. Other screening for suspected conditions (not mental disorders or infectious disease) (16 sources) Computed tomography result abnormal; Translations: [Abnormal findings on diagnostic imaging of other specified body structures] Onset: 07-02-2023 Resolved: 05-31-2024 05-31-2024 Chronic Other screening for suspected conditions (not mental disorders or infectious disease) (20 sources) Raised prostate specific antigen; Translations: [Abnormal findings on diagnostic imaging of heart and coronary circulation] Onset: 05-28-2021 Resolved: 05-31-2024 05-23-2019 Episodic Other skin disorders (18 sources) Mass of lower limb; Translations: [Localized swelling, mass and lump, unspecified lower limb] Onset: 04-15-2024 Resolved: 05-31-2024 02-15-2024 Episodic Other upper respiratory disease (19 sources) Nasal congestion; Translations: [Nasal congestion] Onset: 05-21-2023 Resolved: 05-31-2024 01-22-2023 Episodic Pneumonia (except that caused by tuberculosis or sexually transmitted disease) (20 sources) Pneumonia, unspecified organism; Translations: [Recurrent pneumonia] Onset: 07-17-2021 Resolved: 05-31-2024 Episodic Pulmonary heart disease (19 sources) Pulmonary hypertension; Translations: [Pulmonary hypertension, unspecified] Onset: 07-02-2023 Resolved: 05-31-2024 05-27-2023 Chronic Comment on above: Noted in 05/21/2023 U T page 1, added per outpatient CDI policy. Residual codes; unclassified (19 sources) Obstructive sleep apnea syndrome; Translations: [Obstructive sleep apnea (adult) (pediatric)] Onset: 04-15-2024 Resolved: 05-31-2024 10-16-2023 Chronic Residual codes; unclassified (16 sources) Bilateral lower limb edema; Translations: [Localized edema] Onset: 08-06-2022 Resolved: 05-31-2024 05-31-2024 Episodic Residual codes; unclassified (16 sources) Bilateral upper arm edema; Translations: [Localized edema] Onset: 07-02-2023 Resolved: 05-31-2024 05-31-2024 Episodic Screening and history of mental health and substance abuse codes (20 sources) Ex-smoker; Translations: [Personal history of nicotine dependence] Onset: 05-28-2021 Resolved: 05-31-2024 05-23-2019 Episodic Thyroid disorders (20 sources) Hypothyroidism; Translations: [Hypothyroidism, unspecified] Onset: 11-23-2018 Resolved: 05-31-2024 02-24-2019 Chronic Results Test Name Value Interpretation Reference Range Facility Provider Letteron 03-08-2025 Provider Letter Provider Letter March 08, 2025 CHIKI JU[address]Z [address] [place] [id number] CHIKI JUAREZ 1945 Dear Chiki , We have been trying to reach you with no success. It is important that you return our call regarding your discharge upon receiving this letter. Also, at the time of your call, please provide us with your current information. Thank you for your prompt attention to this matter. Sincerely, Tres Blunger [phone] [facility] Reminderson 02-23-2025 Reminders Reminders From: Marlys Carcamo To: [facility] - Clinical; Sent: 02/20/2025 17:37:17 EDT Show [...] below results. pt notified. Send rx to [facility] Frannie From: Rose Marie Sauceda (B - Clinical) To: Marlys Carcamo; Sent: 02/23/2025 14:49:36 EDT Show up: 02/23/2025 14:49:00 EDT Subject: RE: Ambulatory Reminder Normal [facility] .Interpretation:on Interpretation: Comment Invalid Interpretation Code [facility] Comment on above: Result Comment: Not infected with HCV unless early or acute infection is suspected (which may be delayed in an immunocompromised individual), or other evidence exists to indicate HCV infection. Performed at: [facility] [address] [id number] PhD Sahra Robledo Performed By: #### 2 [id number] #### [facility] [address] [place] [address] HCV Antibody RFX to Quant PC Mac 02-19-2025 HCV Ab Non-Reactive Invalid Interpretation Code Non Reactive [facility] Comment on above: Result Comment: Perf ormed at: [facility] [address] [id number] PhD Sahra Robledo Performed By: #### 2 [id number] #### [facility] [address] [place] [address] CHEMISTRYOrdered By: SYSTEM SYSTEM on 02-16-2025 Albumin [...] (Bld) [Mass fraction] 6.0 % High <=5.9% [facility] ChemAutoSS CMPon 02-16-2025 Albumin [Mass/Vol] 3.8 g/dL Normal 3.3-5.0 [facility] Comment on above: Performed By: #### 2 [id number] #### [facility] [address] [place] [address] Albumin/Globulin [Mass ratio] 1.5 {ratio} Normal 1.1-2.2 [facility] Comment on above: Performed By: #### 2 [id number] #### [facility] [address] [place] [address] Alk Phos 81 Int._Unit/L Normal 21-98 [facility] Comment on above: Performed By: #### 2 [id number] #### [facility] [address] [place] [address] ALT 8 Int._Unit/L Normal 6-46 [facility] Comment on above: Performed By: #### 2 [id number] #### [facility] [address] [place] [address] Anion gap [Moles/Vol] 11 mmol/L Normal 6-16 [facility] Comment on above: Performed By: #### 2 [id number] #### [facility] [address] [place] [address] AST 11 Int._Unit/L Normal 5-43 [facility] Comment on above: Performed By: #### 2 [id number] #### [facility] [address] [place] [address] Bili Total 0.5 mg/dL Normal 0.0-1.1 [facility] Comment on above: Performed By: #### 2 [id number] #### [facility] [address] [place] [address] BUN/Creat Ratio 17 No Units Normal 10-20 [facility] Comment on above: Performed By: #### 2 [id number] #### [facility] [address] [place] [address] Calcium [Mass/Vol] 8.8 mg/dL Low 8.9-11.1 [facility] Comment on above: Performed By: #### 2 [id number] #### [facility] [address] [place] [address] Chloride [Moles/Vol] 104 mmol/L Normal 101-111 [facility] Comment on above: Performed By: #### 2 [id number] #### [facility] [address] [place] [address] CO2 [Moles/Vol] 26 mmol/L Normal 21-31 [facility] Comment on above: Performed By: #### 2 [id number] #### [facility] [address] [place] [address] Creatinine [Mass/Vol] 1.2 mg/dL Normal 0.5-1.3 [facility] Comment on above: Performed By: #### 2 [id number] #### [facility] [address] [place] [address] Globulin (S) [Mass/Vol] 2.6 g/dL Normal 1.4-4.0 [facility] Comment on above: Performed By: #### 2 [id number] #### [facility] [address] [place] [address] Glucose [Mass/Vol] 104 mg/dL Normal 55-199 [facility] Comment on above: Performed By: #### 2 [id number] #### [facility] [address] [place] [address] Potassium [Moles/Vol] 4.2 mmol/L Normal 3.5-5.3 [facility] Comment on above: Performed By: #### 2 [id number] #### [facility] [address] [place] [address] Protein [Mass/Vol] 6.4 g/dL Normal 6.0-7.8 [facility] Comment on above: Performed By: #### 2 [id number] #### [facility] [address] [place] [address] Sodium [Moles/Vol] 137 mmol/L Normal 135-145 [facility] Comment on above: Performed By: #### 2 [id number] #### [facility] [address] [place] [address] Urea nitrogen [Mass/Vol] 20 mg/dL Normal 5-21 [facility] Comment on above: Performed By: #### 2 [id number] #### [facility] [address] [place] [address] [id number] 02-16-2025 HbA1c (Bld) [Mass fraction] 6.0 % High <=5.9 [facility] Comment on above: Performed By: #### 7 [id number] #### [facility] [address] [place] [address] Lipid Panelon 02-16-2025 Cholesterol [Mass/Vol] 166 mg/dL Normal 120-200 [facility] Comment on above: Performed By: #### 2 [id number] #### [facility] [address] [place] [address] Cholesterol in HDL [Mass/Vol] 35 mg/dL Invalid Interpretation Code [facility] Comment on above: Result Comment: '>= 60 LOW RISK' '<= 40 HIGH RISK' Performed By: #### 2 [id number] #### [facility] [address] [place] [address] Cholesterol in LDL [Mass/Vol] 113 mg/dL Normal <=129 [facility] Comment on above: Performed By: #### 2 [id number] #### [facility] [address] [place] [address] Cholesterol in VLDL [Mass/Vol] 24 mg/dL Normal 7-40 [facility] Comment on above: Performed By: #### 2 [id number] #### [facility] [address] [place] [address] Triglyceride [Mass/Vol] 119 mg/dL Normal <=149 [facility] Comment on above: Performed By: #### 2 [id number] #### [facility] [address] [place] [address] TSHon 02-16-2025 TSH Qn 9.04 m[IU]/L High 0.34-5.60 [facility] Comment on above: Performed By: #### 2 [id number] #### [facility] [address] [place] [address] eGFRon 02-16-2025 eGFR 62 mL/min/1.73 m2 Normal >=59 [facility] Comment on above: Performed By: #### 1 [id number] #### [facility] [address] [place] [address] Ambulatory Visit Summaryon 0 02-15-2025 Ambulatory Visit [...] calories Your Care Team Attending Physician - Pito Patterson MD Primary Care Physician - Marlys Carcamo This [...] Appointments 2024 11:00 AM EDT With: Where: [address] [address]- Thursday 9:45 AM EDT With: Oni MCKEON MD Where: [facility] [address] [place], [place] [address]- 2025 9:30 AM EDT With: Where: [address] [address]- You Need to Complete the Following Comprehensive [...] Every day Oxygen - patient states his art museum aide just increased this to 4LPM Unchanged potassium chloride (potassium chloride 10 (more content not included)... Normal [facility] Ambulatory Visit Summary Ambulatory Visit [...] Misc Prescription (Electric scooter) Misc Prescription (Handicap iGlberto, 5 years.) Misc Prescription (Nebulizer accessory set) [...] Appointments 2024 11:00 AM EDT With: Where: [facility] [address] [address]- Thursday 9:45 AM EDT With: MIKE VENTURA, Oni Sewell Where: [facility] [address] [place] [address] [place] [address]- 2025 9:30 AM EDT With: Where: [facility] [address] [address]- You Need to Complete the Following Comprehensive [...] Every day Oxygen - patient states his art museum aide just increased this to 4LPM Unchanged potassium chloride (potassium chloride 10 mEq Cap-ER) 1 Capsules By Mouth Every day Unchanged sodium chloride (Hyper-Flaco 3.5% inhalation solution) See instructions per neulizer BID, skip one dose with increased swelling in feet- per patient Unchan (more content not included)... Normal [facility] Office/Clini c Noteon 02-15-2025 Family [...] of clutter to prevent tripping and/or falling. [place] Advance Directives reviewed, at home. Patient encouraged [...] patient requests, he will have completed at [facility] prior to next PCP visit. Colonoscopy screenings no longer performed due to age. Reviewed concerns with bladder control over past 6 months with no concerns. Reviewed pain symptoms with patient: 01/24 back pain. Reviewed all outside providers that [...] and pulmono (more content not included)... Normal [facility] Comment on above: Result Comment: Elec tronically [...] of Oxygen, elevated B/p for Medicare with Mray refills needed for Spiriva, and Tylenol History [...] on Spiriva. sees Dr. Ferro and a art museum aide in [place] as well. on 4 Liter O2. annual labs ordered. he has not had any water today so he will return for nurse visit. RTC 3 months Ordered: E&M of Est. Patient Low 20-29 Min 45524 2. Back pain (M54.9: Dorsalgia, unspecified) c/o worsening back pain. spine surgeon is not willing to do surgery due to lung condition. will send refill on T3 Ordered: E&M of Est. Patient Low 20-29 Min 90981 3. Former smoker (Z87.891: Personal history of nicotine dependence) continue not smoking Ordered: E&M of Est. Patient Low 20-29 Min 43786 4. BMI 34.0-34.9,adult, (Z68.34: Body mass index [BMI] 34.0-34.9, adult)Body mass index [BMI] 34.0-34.9, adult BMI education Ordered: E&M of Est. Patient Low 20-29 Min 44266 5. Class 1 obesity due to excess calories with body mass index (BMI) of 34.0 to 34.9 in adult (E66.811: Obesity, class 1) see above Ordered: E&M of Est. Patient Low 20-29 Min 55098 Orders: 1125F Pain severity quantified; pain present [...] Handicap Placard, (more content not included)... Normal [facility] Comment on above: Result Comment: Elec tronically Signed By: Marlys Carcamo\.br\Date and Time Signed: 02/15/25 11:36 EDT No Panel Informationon 02-02 [facility] Ambulatory Visit Summaryon 0 11-24-2024 Ambulatory [...] Appointments Thursday 8:00 AM EDT With: Where: [address] [address]- Thursday 9:00 AM EDT With: Navarro VENTURA, Pito Davidson Where: [address] [address]- Thursday 9:45 AM EDT With: Oni MCKEON MD Where: [facility] [address] [place] [address]- Medications What How Much When Why Instructions [...] Every day Oxygen - patient states his art museum aide just increased this to 4LPM Contact prescribing physician if questions or concerns Unchanged potassium chloride (potassium chloride 10 mEq Cap-ER) 1 Capsules By Mouth Every day Contact prescribing physician if questions or concerns Unchanged sodium chloride (Hyper-Flaco 3.5% inhalation solution) See instructions per neulizer BID, skip one dose wi (more content not included)... Normal [facility] Office/Clini c Noteon 11-24-2024 Family [...] patient is also maintaining follow-ups with a art museum aide for pulmonary hypertension and noted no new [...] function evaluation conducted. - Scheduled follow-up with art museum aide for pulmonary hypertension. - Upcoming re-evaluation for [...] pending. Pulmonary hypertension remains stable per routine art museum aide follow-ups. B-cell lymphoma continues to be ma (more content not included)... Normal [facility] Comment on above: Result Comment: Elec tronically Signed By: Navarro VENTURA, Pito Davidson\.br\Date and Time Signed: 11/24/24 13:39 EDT No Panel Informationon 11-22 [facility] PROSTATE-SPECIFIC ANTIGEN DI AGNOSTICon 11-22-2024 Prostate specific Ag [Mass/Vol] 0.24 ng/mL NINF - 2.60 ng/mL [facility] Comment on above: Total PSA test metho dology used is the Electrochemiluminescence Immunoassay by [employer]. Total PSA values by differing methodologies cannot be interchanged. Prostate specific Ag [Mass/V ol]on 11-22-2024 Interpretation and review of laboratory results Normal [facility] T4/FTI/T4Uon 11-22-2024 FTI 7 ug/dL 5.3 - 10.8 ug/dL [facility] Interpretation and review of laboratory results Abnormal [facility] T4 [Mass/Vol] 6.1 ug/dL 5.5 - 10.2 ug/dL [facility] T4 uptake [Mass/Vol] 0.87 Low 0.91 - 1.19 [facility] THYROID STIMULATING HORMONEo n 11-22-2024 TSH Qn 2.01 m[IU]/L [facility] TSH Qnon 11-22-2024 Interpretation and review of laboratory results Normal [facility] CNOVSPon 11-21-2024 CNOVSP Visit (SP) Office (H EMASA) -- CHIKI JUAREZ ([id number]) 1945 M Date Time Provider Department 11/21/24 [...] Resp 24 (more content not included)... Normal [facility] PSA SerPl-mCncon 11-21-2024 Prostate specific Ag [Mass/Vol] 0.24 ng/mL Normal <2.60 [facility] Comment on above: Order Comment: Speci men Type: BLOOD SPECIMENOrdering Facility: [facility] Address: [address] [place] [address] Result Comment: Tota l PSA test methodology used is the Electrochemiluminescence Immunoassay by [employer]. Total PSA values by differing methodologies cannot be interchanged. Performed By: #### 2 [id number] ####[facility] [id number] [place] [address] [place] T4/FTI/T4Uon 11-21-2024 FTI 7.0 ug/dL Normal 5.3-10.8 [facility] Comment on above: Order Comment: Speci men Type: BLOOD SPECIMEN [facility] Address: [address] [place] [address] Performed By: #### I FESC #### [facility] CLIA [id number] [address] [place] [address] [place] T4 [Mass/Vol] 6.1 ug/dL Normal 5.5-10.2 [facility] Comment on above: Order Comment: Speci men Type: BLOOD SPECIMEN [facility]: [facility] Address: [address] [place] [address] Performed By: #### I FESC #### [facility] CLIA [id number] [address] [place] [address] [place] T4 uptake [Mass/Vol] 0.87 Low 0.91-1.19 [facility] Comment on above: Order Comment: Speci men Type: BLOOD SPECIMEN [facility] Address: [address] [place] [address] Performed By: #### I FESC #### [facility] CLIA [id number] [address] [place] [address] [place] TSH SerPl-aCncon 11-21-2024 TSH Qn 2.010 m[IU]/L Normal 0.270-4.200 [facility] Comment on above: Order Comment: Speci men Type: BLOOD SPECIMEN [facility] Address: [address] [place] [address] Performed By: #### I FESC #### [facility] CLIA [id number] [address] [place] [address] [place] CBC W Auto Differential pane l (Bld)on 11-16-2024 Anisocytosis Ql (Bld) Present [facility] Basophils (Bld) [#/Vol] 0.05 10*3/uL NINF [facility] Basophils/100 WBC (Bld) 0.9 % [facility] Differential cell count method Nom (Bld) Manual [facility] Eosinophils (Bld) [#/Vol] 0.05 10*3/uL NINF [facility] Eosinophils/100 WBC (Bld) 0.9 % [facility] Erythrocyte distribution width (RBC) [Ratio] 16.2 % High 11.5 - 15.0 % [facility] Hematocrit (Bld) [Volume fraction] 35.7 % Low 39.0 - 51.0 % [facility] Hemoglobin (Bld) [Mass/Vol] 11.5 g/dL Low 13.0 - 17.0 g/dL [facility] Interpretation and review of laboratory results Abnormal [facility] Lymphocytes (Bld) [#/Vol] 1.14 10*3/uL [facility] Lymphocytes/100 WBC (Bld) 20.5 % [facility] MCH (RBC) [Entitic mass] 34.4 pg High 26.0 - 34.0 pg [facility] MCHC (RBC) [Mass/Vol] 32.2 g/dL 30.5 - 36.0 g/dL [facility] MCV (RBC) [Entitic vol] 106.9 fL High 80.0 - 100.0 fL [facility] [place] % 2.6 % [facility] Monocytes (Bld) [#/Vol] 1.85 10*3/uL High NINF [facility] Monocytes/100 WBC (Bld) 33.3 % [facility] Myelo % 6.8 % [facility] Neutrophils (Bld) [#/Vol] 1.94 10*3/uL [facility] Neutrophils/100 WBC (Bld) 35 % [facility] Nucleated RBC (Bld) [#/Vol] NINF [facility] Nucleated RBC/100 WBC (Bld) [Ratio] 0 % /100 WBC [facility] Ovalocytes LM Ql (Bld) Few [facility] Platelet mean volume (Bld) [Entitic vol] 10.9 fL 9.0 - 12.7 fL [facility] Platelets (Bld) [#/Vol] 186 10*3/uL [facility] Platelets Estimate (Bld) [#/Vol] Adequate [facility] Polychromasia LM Ql (Bld) Slight [facility] RBC (Bld) [#/Vol] 3.34 10*6/uL Low 4.20 - 6.0 0 m/uL [facility] Red Cell Morph Reviewed: see result s of individual morphologies [facility] WBC (Bld) [#/Vol] 5.55 10*3/uL [facility] WBC Left Shift Ql (Bld) Present [facility] This is an appended report. These results have been appended to a previously verified report. [facility] PROTEIN, TOTALon 11-16-2024 Protein [Mass/Vol] 6.8 g/dL 6.3 - 8.0 g/dL [facility] Protein [Mass/Vol]on 025 Interpretation and review of laboratory results Normal [facility] CBC W Auto Differential pane l (Bld)on 11-15-2024 Anisocytosis Ql (Bld) Present Normal [facility] Comment on above: Order Comment: Speci men Type: BLOOD SPECIMEN [facility] Address: [address] [place] [address] Performed By: #### I FESC #### [facility] CLIA [id number] [address] [place] [address] [place] Basophils (Bld) [#/Vol] 0.05 10*3/uL Normal <0.11 [facility] Comment on above: Order Comment: Speci men Type: BLOOD SPECIMEN [facility] Address: [address] [place] [address] Performed By: #### I FESC #### [facility] CLIA [id number] [address] [place] [address] [place] Basophils/100 WBC (Bld) 0.9 % Normal [facility] Comment on above: Order Comment: Speci men Type: BLOOD SPECIMEN [facility] Address: [address] [place] [address] Performed By: #### I FESC #### [facility] CLIA [id number] [address] [place] [address] [place] Differential cell count method Nom (Bld) Manual Normal [facility] Comment on above: Order Comment: Speci men Type: BLOOD SPECIMEN [facility] Address: [address] [place] [address] Performed By: #### I FESC #### [facility] CLIA [id number] [address] [place] [address] [place] Eosinophils (Bld) [#/Vol] 0.05 10*3/uL Normal <0.46 [facility] Comment on above: Order Comment: Speci men Type: BLOOD SPECIMEN [facility] Address: [address] [place] [address] Performed By: #### I FESC #### [facility] CLIA [id number] [address] [place] [address] [place] Eosinophils/100 WBC (Bld) 0.9 % Normal [facility] Comment on above: Order Comment: Speci men Type: BLOOD SPECIMEN [facility] Address: [address] [place] [address] Performed By: #### I FESC #### [facility] CLIA [id number] [address] [place] [address] [place] Erythrocyte distribution width (RBC) [Ratio] 16.2 % High 11.5-15.0 [facility] Comment on above: Order Comment: Speci men Type: BLOOD SPECIMEN [facility] Address: [address] [place] [address] Performed By: #### I FESC #### [facility] CLIA [id number] [address] [place] [address] [place] Hematocrit (Bld) [Volume fraction] 35.7 % Low 39.0-51.0 [facility] Comment on above: Order Comment: Speci men Type: BLOOD SPECIMEN [facility] Address: [address] [place] [address] Performed By: #### I FESC #### [facility] CLIA [id number] [address] [place] [address] [place] Hemoglobin (Bld) [Mass/Vol] 11.5 g/dL Low 13.0-17.0 [facility] Comment on above: Order Comment: Speci men Type: BLOOD SPECIMEN [facility] Address: [address] [place] [address] Performed By: #### I FESC #### [facility] CLIA [id number] [address] [place] [address] [place] Lymphocytes (Bld) [#/Vol] 1.14 10*3/uL Normal 1.00-4.00 [facility] Comment on above: Order Comment: Speci men Type: BLOOD SPECIMEN [facility] Address: [address] [place] [address] Performed By: #### I FESC #### [facility] CLIA [id number] [address] [place] [address] [place] Lymphocytes/100 WBC (Bld) 20.5 % Normal [facility] Comment on above: Order Comment: Speci men Type: BLOOD SPECIMEN [facility] Address: [address] [place] [address] Performed By: #### I FESC #### [facility] CLIA [id number] [address] [place] [address] [place] MCH (RBC) [Entitic mass] 34.4 pg High 26.0-34.0 [facility] Comment on above: Order Comment: Speci men Type: BLOOD SPECIMEN [facility] Address: [address] [place] [address] Performed By: #### I FESC #### [facility] CLIA [id number] [address] [place] [address] [place] MCHC (RBC) [Mass/Vol] 32.2 g/dL Normal 30.5-36.0 [facility] Comment on above: Order Comment: Speci men Type: BLOOD SPECIMEN [facility] Address: [address] [place] [address] Performed By: #### I FESC #### [facility] CLIA [id number] [address] [place] [address] [place] MCV (RBC) [Entitic vol] 106.9 fL High 80.0-100.0 [facility] Comment on above: Order Comment: Speci men Type: BLOOD SPECIMEN [facility] Address: [address] [place] [address] Performed By: #### I FESC #### [facility] CLIA [id number] [address] [place] [address] [place] Metamyelocytes/100 WBC (Bld) 2.6 % Normal [facility] Comment on above: Order Comment: Speci men Type: BLOOD SPECIMEN [facility] Address: [address] [place] [address] Performed By: #### I FESC #### [facility] CLIA [id number] [address] [place] [address] [place] Monocytes (Bld) [#/Vol] 1.85 10*3/uL High <0.87 [facility] Comment on above: Order Comment: Speci men Type: BLOOD SPECIMEN [facility] Address: [address] [place] [address] Performed By: #### I FESC #### [facility] CLIA [id number] [address] [place] [address] [place] Monocytes/100 WBC (Bld) 33.3 % Normal [facility] Comment on above: Order Comment: Speci men Type: BLOOD SPECIMEN [facility] Address: [address] [place] [address] Performed By: #### I FESC #### [facility] CLIA [id number] [address] [place] [address] [place] MYELO% 6.8 % Normal [facility] Comment on above: Order Comment: Speci men Type: BLOOD SPECIMEN [facility] Address: [address] [place] [address] Performed By: #### I FESC #### [facility] CLIA [id number] [address] [place] [address] [place] Neutrophils (Bld) [#/Vol] 1.94 10*3/uL Normal 1.45-7.50 [facility] Comment on above: Order Comment: Speci men Type: BLOOD SPECIMEN [facility] Address: [address] [place] [address] Performed By: #### I FESC #### [facility] CLIA [id number] [address] [place] [address] [place] Neutrophils/100 WBC (Bld) 35.0 % Normal [facility] Comment on above: Order Comment: Speci men Type: BLOOD SPECIMEN [facility] Address: [address] [place] [address] Performed By: #### I FESC #### [facility] CLIA [id number] [address] [place] [address] [place] Nucleated RBC (Bld) [#/Vol] 10*3/uL Normal <0.01 [facility] Comment on above: Order Comment: Speci men Type: BLOOD SPECIMEN [facility] Address: [address] [place] [address] Performed By: #### I FESC #### [facility] CLIA [id number] [address] [place] [address] [place] Nucleated RBC/100 WBC (Bld) [Ratio] 0.0 /100 WBC Normal [facility] Comment on above: Order Comment: Speci men Type: BLOOD SPECIMEN [facility] Address: [address] [place] [address] Performed By: #### I FESC #### [facility] CLIA [id number] [address] [place] [address] [place] Ovalocytes LM Ql (Bld) Few Normal [facility] Comment on above: Order Comment: Speci men Type: BLOOD SPECIMEN [facility] Address: [address] [place] [address] Performed By: #### I FESC #### [facility] CLIA [id number] [address] [place] [address] [place] Platelet mean volume (Bld) [Entitic vol] 10.9 fL Normal 9.0-12.7 [facility] Comment on above: Order Comment: Speci men Type: BLOOD SPECIMEN [facility] Address: [address] [place] [address] Performed By: #### I FESC #### [facility] CLIA [id number] [address] [place] [address] [place] Platelets (Bld) [#/Vol] 186 10*3/uL Normal 150-400 [facility] Comment on above: Order Comment: Speci men Type: BLOOD SPECIMEN [facility] Address: [address] [place] [address] Performed By: #### I FESC #### [facility] CLIA [id number] [address] [place] [address] [place] Platelets Estimate (Bld) [#/Vol] Adequate Normal [facility] Comment on above: Order Comment: Speci men Type: BLOOD SPECIMEN [facility] Address: [address] [place] [address] Performed By: #### I FESC #### [facility] CLIA [id number] [address] [place] [address] [place] Polychromasia LM Ql (Bld) Slight Normal [facility] Comment on above: Order Comment: Speci men Type: BLOOD SPECIMEN [facility] Address: [address] [place] [address] Performed By: #### I FESC #### [facility] CLIA [id number] [address] [place] [address] [place] RBC (Bld) [#/Vol] 3.34 10*6/uL Low 4.20-6.00 [facility] Comment on above: Order Comment: Speci men Type: BLOOD SPECIMEN [facility] Address: [address] [place] [address] Performed By: #### I FESC #### [facility] CLIA [id number] [address] [place] [address] [place] RED CELL MORPH Reviewed: see result s of individual morphologies Normal [facility] Comment on above: Order Comment: Speci men Type: BLOOD SPECIMEN [facility] Address: [address] [place] [address] Performed By: #### I FESC #### [facility] CLIA [id number] [address] [place] [address] [place] WBC (Bld) [#/Vol] 5.55 10*3/uL Normal 3.70-11.00 [facility] Comment on above: Order Comment: Speci men Type: BLOOD SPECIMEN [facility] Address: [address] [place] [address] Performed By: #### I FESC #### [facility] CLIA [id number] [address] [place] [address] [place] WBC Left Shift Ql (Bld) Present Normal [facility] Comment on above: Order Comment: Speci men Type: BLOOD SPECIMEN [facility] Address: [address] [place] [address] Performed By: #### I FESC #### [facility] CLIA [id number] [address] [place] [address] [place] [address] CHEST W IVCONon 5 CT CHEST W IVCON * * *Final Report* * * DATE OF EXAM: Nov 15 2024 3:21PM [facility] 0539 - CT CHEST W [...] abdomen: Visualized upper abdomen is grossly unremarkable. Medical Transcriptionist (topogram) images: Unremarkable. IMPRESSION: No lymphadenopathy in [...] any questions regarding this interpretation, please call [phone]. If you are unable to reach us at the number above, please feel free to contact [facility] at [phone]. [id number] Normal [facility] CT Chest W contrast Shantel [...] any questions regarding this interpretation, please call [phone]. If you are unable to reach us at the number above, please feel free to contact [facility] at [phone]. DIVISION OF RADIOLOGY * * *Final Report* * * DATE OF EXAM: Nov 15 2024 3:21PM [facility] 0539 - CT CHEST W [...] abdomen: Visualized upper abdomen is grossly unremarkable. Medical Transcriptionist (topogram) images: Unremarkable. DIVISION OF RADIOLOGY Provider, Clay Miller - 11/15/2024 * * *Final Report* * * DATE OF EXAM: Nov 15 2024 3:21PM [facility] 0539 - CT CHEST W [...] abdomen: Visualized upper abdomen is grossly unremarkable. Medical Transcriptionist (topogram) images: Unremarkable. IMPRESSION IMPRESSION: No lymphadenopathy [...] any questions regarding this interpretation, please call [phone]. If you are unable to reach us at the number above, please feel free to contact [facility] at [phone]. [facility] Study observation (narrative) [facility] CT Chest W contrast IVOrdere d By: Ccf Provider on 11-15-2024 [facility] Comp Metab 2000 Pnl SerPlon 11-15-2024 Protein [Mass/Vol] 6.8 g/dL Normal 6.3-8.0 [facility] Comment on above: Order Comment: Speci men Type: BLOOD SPECIMEN [facility]ing Facility[facility] Address: [address] [place] [address] Performed By: #### I [facility] #### [facility] CLIA [id number] [address] [facility] DESK [id number] [place] [address] [place] Order Comment: Speci men Type: BLOOD SPECIMENOrdering Facility: [facility] Address: [address] [place] [address] Performed By: #### 2 885-2 ####[facility] [id number] [facility] [address] Comprehensive metabolic 2000 panelOrdered By: Niki Lynn on 11-15-2024 Albumin [Mass/Vol] 3.8 g/dL Low 3.9 - 4.9 g/dL [facility] ALP [Catalytic activity/Vol] 83 U/L 38 - 113 U/L [facility] ALT [Catalytic activity/Vol] 9 U/L Low 10 - 54 U/L [facility] Anion gap [Moles/Vol] 12 mmol/L 8 - 15 mmol/L [facility] AST [Catalytic activity/Vol] 14 U/L 14 - 40 U/L [facility] Bilirubin [Mass/Vol] 0.4 mg/dL 0.2 - 1 .3 mg/dL [facility] Calcium [Mass/Vol] 9.3 mg/dL 8.5 - 10. 2 mg/dL [facility] Chloride [Moles/Vol] 104 mmol/L 98 - 10 7 mmol/L [facility] CO2 [Moles/Vol] 24 mmol/L 22 - 30 mmol/L [facility] Creatinine [Mass/Vol] 1.27 mg/dL High 0.73 - 1.22 mg/dL [facility] GFR/1.73 sq M.predicted among non-blacks MDRD (S/P/Bld) [Vol rate/Area] 58 mL/min/{1.73_m2} Low - PINF [facility] Comment on above: Estimated Glomerular Filtration [...] 110 mg/dL High 74 - 99 mg/dL [facility] Comment on above: The [place] Diabete s Association (ADA) provides guidance for [...] Standards of Medical Care in Diabetes 2016, [place] Diabetes Association. Diabetes Care. 2016.39(Suppl 1). Interpretation and review of laboratory results Abnormal [facility] Potassium [Moles/Vol] 4 mmol/L 3.7 - 5.1 mmol/L [facility] Protein [Mass/Vol] 6.8 g/dL 6.3 - 8.0 g/dL [facility] Sodium [Moles/Vol] 140 mmol/L 136 - 144 mmol/L [facility] Urea nitrogen [Mass/Vol] 21 mg/dL 9 - 24 mg/dL [facility] Comprehensive metabolic 2000 panelon 11-15-2024 Albumin [Mass/Vol] 3.8 g/dL Low 3.9-4.9 [facility] Comment on above: Order Comment: Speci men Type: BLOOD SPECIMEN [facility] Facility[facility] Address: [address] [place] [address] Performed By: #### I [facility] #### [facility] CLIA [id number] [address] [place] [address] [place] [address] [place] ALP [Catalytic activity/Vol] 83 U/L Normal 38-113 [facility] Comment on above: Order Comment: Speci men Type: BLOOD SPECIMEN [facility]ing Facility: [facility] Address: [address] [place] [address] Performed By: #### I [facility] #### [facility] CLIA [id number] [address] [place] [address] [place] ALT [Catalytic activity/Vol] 9 U/L Low 10-54 [facility] Comment on above: Order Comment: Speci men Type: BLOOD SPECIMEN [facility]ing Facility: [facility] Address: [address] [place] [address] Performed By: #### I [facility] #### [facility] CLIA [id number] [address] [place] [address] [place] Anion gap [Moles/Vol] 12 mmol/L Normal 8-15 [facility] Comment on above: Order Comment: Speci men Type: BLOOD SPECIMEN [facility]ing Facility: [facility] Address: [address] [place] [address] Performed By: #### I [facility] #### [facility] CLIA [id number] [address] [place] [address] [place] AST [Catalytic activity/Vol] 14 U/L Normal 14-40 [facility] Comment on above: Order Comment: Speci men Type: BLOOD SPECIMEN [facility]ing Facility: [facility] Address: [address] [place] [address] Performed By: #### I [facility] #### [facility] CLIA [id number] [address] [place] [address] [place] Bilirubin [Mass/Vol] 0.4 mg/dL Normal 0.2-1.3 [facility] Comment on above: Order Comment: Speci men Type: BLOOD SPECIMEN Ordering Facility: [facility] Address: [address] [place] [address] Performed By: #### I [facility] #### [facility] CLIA [id number] [address] [place] [address] [place] Calcium [Mass/Vol] 9.3 mg/dL Normal 8.5-10.2 [facility] Comment on above: Order Comment: Speci men Type: BLOOD SPECIMEN [facility]ing Facility: [facility] Address: [address] [place] [address] Performed By: #### I [facility] #### [facility] CLIA [id number] [address] [place] [address] [place] Chloride [Moles/Vol] 104 mmol/L Normal 98-107 [facility] Comment on above: Order Comment: Speci men Type: BLOOD SPECIMEN [facility] Address: [address] [place] [address] Performed By: #### I [facility] #### [facility] CLIA [id number] [address] [place] [address] [place] CO2 [Moles/Vol] 24 mmol/L Normal 22-30 [facility] Comment on above: Order Comment: Speci men Type: BLOOD SPECIMEN [facility] Address: [address] [place] [address] Performed By: #### I [facility] #### [facility] CLIA [id number] [address] [place] [address] [place] Creatinine [Mass/Vol] 1.27 mg/dL High 0.73-1.22 [facility] Comment on above: Order Comment: Speci men Type: BLOOD SPECIMEN Ordering Facility: [facility] Address: [address] [place] [address] Performed By: #### I [facility] #### [facility] CLIA [id number] [address] [place] [address] [place] Creatinine and Glomerular filtration rate.predicted panel (S/P/Bld) 58 mL/min/1.73m??? Low >=60 [facility] Comment on above: Order Comment: Speci men Type: BLOOD SPECIMEN Ordering [facility]: [facility] Address: [address] [place] [address] Result Comment: Ary mated Glomerular Filtration Rate [...] GFR. Performed By: #### I [facility] #### [facility] CLIA [id number] [address] [place] [address] [place] Glucose [Mass/Vol] 110 mg/dL High 74-99 [facility] Comment on above: Order Comment: Liliya hadley Type: BLOOD SPECIMEN [facility] Address: [address] [place] [address] Result Comment: The [place] Diabetes Association (ADA) provides guidance for cutoff [...] Standards of Medical Care in Diabetes 2016, [place] Diabetes Association. Diabetes Care. 2016.39(Suppl 1). Performed By: #### I [facility] #### [facility] CLIA [id number] [address] [place] [address] [place] Potassium [Moles/Vol] 4.0 mmol/L Normal 3.7-5.1 [facility] Comment on above: Order Comment: Liliya hadley Type: BLOOD SPECIMEN Order[facility] Facility[facility] Address: [address] [place] [address] Performed By: #### I F[facility] #### [facility] CLIA [id number] [address] [place] [address] [place] Sodium [Moles/Vol] 140 mmol/L Normal 136-144 [facility] Comment on above: Order Comment: Speci men Type: BLOOD SPECIMEN [facility] Address: [address] [place] [address] Performed By: #### I [facility] #### [facility] CLIA [id number] [address] [place] [address] [place] Urea nitrogen [Mass/Vol] 21 mg/dL Normal 9-24 [facility] Comment on above: Order Comment: Speci men Type: BLOOD SPECIMEN [facility] Address: [address] [place] [address] Performed By: #### I [facility] #### [facility] CLIA [id number] [address] [place] [address] [place] IMMUNOFIXATION SCREEN, SERUM on 11-15-2024 MPA RESULT No M protein is identified. Normal No M protein is identified. [facility] Comment on above: Order Comment: Speci men Type: BLOOD SPECIMENOrdering Facility: [facility] Address: [address] [place] [address] Performed By: #### I [facility] ####[facility] [id number] [place] [address] [place] STAFF REVIEW (MPA) Reviewed by Xiomara powell M.D. Normal [facility] Comment on above: Order Comment: Speci men Type: BLOOD SPECIMENOrdering Facility: [facility] Address: [address] [place] [address] Performed By: #### I [facility] ####[facility] [id number] [place] [id number] [place] IMMUNOGLOBULINS,IGG,IGA,IGMo n 11-15-2024 IgA [Mass/Vol] 127 mg/dL Normal 70-400 [facility] Comment on above: Order Comment: Speci men Type: BLOOD SPECIMENOrdering Facility: [facility] Address: [address] [place] [address] Performed By: #### S ERIMM ####[facility] [id number] [place] [address] [place] IgG [Mass/Vol] 1016 mg/dL Normal 700-1600 [facility] Comment on above: Order Comment: Speci men Type: BLOOD SPECIMENOrdering Facility: [facility] Address: [address] [place] [address] Performed By: #### S ERIMM ####[facility] [id number] [place] [address] [place] IgM [Mass/Vol] 109 mg/dL Normal 40-230 [facility] Comment on above: Order Comment: Speci men Type: BLOOD SPECIMENOrdering Facility: [facility] Address: [address] [place] [address] Performed By: #### S ERIMM ####[facility] [id number] [place] [address] [place] KAPPA/ARDON,FREE,SERon 2024 Immunoglobulin light chains.kappa.free (S) [Mass/Vol] 27.0 mg/L High 3.3-19.4 [facility] Comment on above: Order Comment: Speci men Type: BLOOD SPECIMEN Order[facility] Address: [address] [place] [address] Result Comment: Rare ly, increased serum free light chains levels may not be detected or accurately quantified due to prozone phenomenon or in high viscosity samples using this immunoturbidimetric assay. Correlation with other laboratory results and clinical findings is recommended. The [place] Free Light Chain was performed using the Binding Site Optilite immunoturbidimetric method. Result obtained with different assay methods or kits cannot be used interchangeably. Performed By: #### I FES #### [facility] CLIA [id number] [address] [place] [address] [place] Immunoglobulin light chains.kappa/Immunog lobulin light chains.lambda (S) [Mass ratio] 1.66 High 0.26-1.65 [facility] Comment on above: Order Comment: Speci men Type: BLOOD SPECIMEN [facility] Address: [address] [place] [address] Performed By: #### I FES #### [facility] CLIA [id number] [address] [place] [address] [place] Immunoglobulin light chains.lambda.free [Mass/Vol] 16.3 mg/L Normal 5.7-26.3 [facility] Comment on above: Order Comment: Speci men Type: BLOOD SPECIMEN [facility] Address: [address] [place] [address] Result Comment: Rare ly, increased serum free [...] interchangeably. Performed By: #### I FES #### [facility] CLIA [id number] [address] [place] [address] [place] PROTEIN ELECTROPHORESIS SERU M (P)on 11-15-2024 Albumin [Mass/Vol] 3.85 g/dL Normal 3.43-5.41 [facility] Comment on above: Order Comment: Speci men Type: BLOOD SPECIMENOrdering Facility: [facility] Address: [address] [place] [address] Performed By: #### L [id number] ####[facility] [id number] [place] [address] [place] Alpha 1 globulin Elph [Mass/Vol] 0.40 g/dL Normal 0.18-0.43 [facility] Comment on above: Order Comment: Speci men Type: BLOOD SPECIMENOrdering Facility: [facility] Address: [address] [place] [address] Performed By: #### L [id number] ####[facility]IA [id number] [place] [address] [place] Alpha 2 globulin Elph [Mass/Vol] 0.80 g/dL Normal 0.42-0.98 [facility] Comment on above: Order Comment: Speci men Type: BLOOD SPECIMENOrdering Facility: [facility] Address: [address] [place] [address] Performed By: #### L [id number] ####[facility] [id number] [place] [address] [place] Beta globulin Elph [Mass/Vol] 0.82 g/dL Normal 0.61-1.17 [facility] Comment on above: Order Comment: Speci men Type: BLOOD SPECIMENOrdering Facility: [facility] Address: [address] [place] [address] Performed By: #### L [id number] ####[facility] [id number] [address] [place] Gamma globulin Elph [Mass/Vol] 0.93 g/dL Normal 0.53-1.51 [facility] Comment on above: Order Comment: Speci men Type: BLOOD SPECIMENOrdering Facility: [facility] Address: [address] [place] [address] Performed By: #### L [id number] ####[facility] [id number] [place] [address] [place] M-PROTEIN LOCATION Normal [facility] Comment on above: Order Comment: Speci men Type: BLOOD SPECIMENOrdering Facility: [facility] Address: [address] [place] [address] Result Comment: Not Applicable. Performed By: #### L [id number] ####[facility] [id number] [address] [place] Protein Fractions [Interp] No definitive M protein is identified on protein electrophoresis. Normal No definitive M protein is identified on protein electrophore sis. [facility] Comment on above: Order Comment: Speci men Type: BLOOD SPECIMENOrdering Facility: [facility] Address: [address] [place] [address] Performed By: #### L [id number] ####[facility]IA [id number] [place] [address] [place] Protein.monoclonal Elph [Mass/Vol] 0.00 g/dL Normal <=0.00 [facility] Comment on above: Order Comment: Speci men Type: BLOOD SPECIMENOrdering Facility: [facility] Address: [address] [place] [address] Performed By: #### L [id number] ####[facility] [id number] [address] [place] SPE STAFF REVIEW Reviewed by Xiomara powell M.D. Normal [facility] Comment on above: Order Comment: Speci men Type: BLOOD SPECIMENOrdering Facility: [facility] Address: [address] [place] [address] Performed By: #### L [id number] ####[facility] [id number] [place] [id number] [place] 36on 11-07-2024 36 Regarding echo resul t from 11/04/2024: MD Mayra Wellington MA His echocardiogram shows stable findings. Follow-up as planned. Patient made aware. 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 During your visit today, we recorded the following information about you: Gloria Weinberg RN 10/14/2024 1:07 PM Signed Please sign pended [...] [C83.30] Order(s):COMPREHENSIVE METABOLIC PANEL [SQCMP] Order #: [id number] FUTURE COMPLETE BLOOD COUNT AND DIFFERENTIAL [SQCBCDIF] Order #: [id number] FUTURE PROTEIN ELECTROPHORESIS SERUM W/INTERP [SQSEPG] Order #: [id number] FUTURE MONOCLONAL PROTEIN, SERUM (BLOOD) [SQSERMPA] Order #: [id number] FUTURE Prescriptions as of 10/14/2024 - TEZSPIRE [...] Encounter Status:Closed by ARABELLA MANDUJANO on 10/14/24 Normal [facility] Ambulatory Visit Summaryon 0 08-25-2024 [...] Follow-Up Appointments 2024 1:15 PM EDT With: Pito Patterson MD Where: [address] [address]- Thursday 8:00 AM EDT With: Where: [address] [address]- Thursday 9:45 AM EDT With: MIKE VENTURA, Oni Sewell Where: [facility] [address] [place] [address]- Medications What How Much When Why Instructions [...] Every day Oxygen - patient states his art museum aide just increased this to 4LPM Unchanged potassium [...] prostate cance (more content not included)... Normal [facility] Medicine Office/Clini c Noteon 08-25-2024 Family Medicine [...] to trialing Zyrtec for congestion relief. The art museum aide, overseeing ongoing respiratory management, is scheduled for [...] disease, unspecified) Monitor exacerbation pattern and consult art museum aide regarding chronic antibiotic therapy approval. Explore potential for chronic Zyrtec use for congestion relief upon art museum aide's input. 4. Chronic diastolic heart failure (I50.32: [...] obstruction Card (more content not included)... Normal [facility] Comment on above: Result Comment: Elec tronically Signed By: Pito Patterson MD\.br\Date and Time Signed: 08/25/24 12:44 EST No Panel InformationOrdered By: Malou Wynne on 08-04-2024 [facility] Ambulatory Visit Summaryon 1 09-12-2023 Ambulatory Visit Summary Ambulatory Visit Summary CHIKI JUAREZ :1945 Visit Date:07/13/2024 Ambulatory Visit Instructions Your Diagnosis Sinus complaint BMI 36.0-36.9,adult Exogenous obesity Former smoker Your Care Team Attending Physician - MARKUS CERNA CNP Primary Care Physician - Ross MD, Pito E. This Is Your Medications List Misc Prescription (Electric scooter) Misc Prescription ([employer] Macias, 5 years.) Misc [...] EST With: Navarro VENTURA, Pito Davidson Where: [address] [address]- Thursday 8:00 AM EDT With: Where: [address] [address]- Thursday 9:45 AM EDT With: MIKE VENTURA, Oni Sewell Where: [facility] [address] [place] [address]- Medications What How Much When Why Instructions [...] Every day Oxygen - patient states his art museum aide just increased this to 4LPM Unchanged potassium [...] lymphoma Histor (more content not included)... Normal [facility] Medicine Office/Clini c Noteon 07-13-2024 Family Medicine [...] day(s), # 6 tab(s), Refills(s) 0, Pharmacy: [facility]/pharmacy #[id number], 168, cm, 07/13/24 10:34:00 EST, Height/Length Dosing, 101.9, kg, 07/13/24 10:34:00 EST, Weight Dosing methylPREDNISolone, = 1 packet(s), Oral, As Directed, as directed on package labeling, X 6 day(s), # 21 tab(s), Refills(s) 0, Pharmacy: [facility]/pharmacy #[id number], 168, cm, 07/13/24 10:34:00 EST, [...] No qual (more content not included)... Normal [facility] Comment on above: Result Comment: Elec tronically Signed By: MARKUS CERNA CNP\.otf\Date and Time Signed: 07/13/24 10:55 EST Oswaldo 06-10-2024 RAINA Telephone (HEMASA) -- CHIKI JUAREZ ([id number]) 1945 M Date Time Provider Department 06/10/24 VALERIE MAYES During your visit today, we recorded the following information about you: Valerie Mayes RN 06/10/2024 8:[address] Mayra Berg, [facility] called and spoke with ORESTES yesterday with concerns of PET results: CHEST: * AP window/left hilar mildly avid 0.7 cm lymph node is favored to be reactive, lymphomatous involvement less likely, not entirely excluded. No prior study available for comparison. ORESTES reviewed and will repeat CT Chest in 6 months. Called and spoke with Dr Berg's office and they will update. Call back number provided with any additional needs or concerns. [facility] CT Chest pended for review and sign PSS: Please call to schedule prior to return visit 11/21/24 SANTI Rojas, [facility] 06/10/2024 10:55 AM Signed A voicemail was left on Chiki's phone to return our call to schedule a CT for November. Shea Kolb [facility] Valerie Mayes RN 06/13/2024 9:36 AM Signed notified and transferred to [facility] to schedule CT as recommended prior to return visit with [facility]. SANTI Rojas, Shea 06/13/2024 10:38 AM Signed Patient is scheduled 11/15/24 at 1:30 PM Shea Kolb [facility] Allergies As of Date: 06/10/2024 Noted Allergy Reaction SPIRONOLACTONE 09/18/2021 14 - Other: See Comments Comments: Leg cramps, Hyperkalemia Date Reviewed: 06/06/2024 Reviewed by: Yolanda Montague MA - Fully Assessed Reason for Visit: Pet results [Other] Primary Visit Diagnosis:Localized enlarged lymph nodes [R59.0] Order(s):CT CHEST W IVCON [[id number]] Order #: [id number] FUTURE [] iv contrast (will be provided [...] line spec (more content not included)... Normal [facility] CNOVSPon 06-06-2024 CNOVSP Visit (SP) Office (H EMASA) -- CHIKI JUAREZ ([id number]) 1945 M Date Time Provider Department 06/06/24 [...] Temp 3 (more content not included)... Normal [facility] 06-01-2024 L Specimen: [id number] Received: 06/01/24 [facility] [id number] Spec Type: Surgical Subm Dr: Connor Crawley DO Tissues: A Skin-Other than Cyst, tag, debridement or plastic repair (L CHEEK LESION) B Skin-Other than Cyst, tag, debridement or plastic repair (SCALP LESION) Procedures: HE/8, Gross/Micro L4/2, FS HE/8 Age/ Patient Sex Location Account Attending Physician Chiki Juarez 79/M [place] [id number] Connor Crawley DO SPEC NUM: [id number] RECD: 06/01/24 STATUS: GABBY GIRON NUM: [id number] MARIAN: 06/01/[address]: Connor Crawley DO ENTERED: 06/01/[address] [facility] DR: JOSE TYPE: Surgical DEPT: S ENTERED BY: [id number] RECV BY: [id number] ORDERED: HE/8, Gross/Micro L4/2, FS HE/8 ORDERED: [...] the correct patient's name and scalp Specimen: [id number] Received: 06/01/24 Status: GABBY Giron Num: [id number] Spec Type: Surgical Subm Dr: Connor S Biedenbach,DO Tissues: A Skin-Other than Cyst, tag, debridement or plastic repair (L CHEEK LESION) B Skin-Other than Cyst, tag, debridement or plastic repair (SCALP LESION) Procedures: , Tristan/Micro L4/2, FS Patient: Chiki Juarez [id number] (Continued) Specimen: [id number] Received: 06/01/24 (Continued) Gross Description (Continued) Signed (signature on file) Randy Tillman MD 06/03/24 1151 Specimen: [id number] Received: 06/01/24 Status: GABBY Giron Num: [id number] Spec Type: Surgical Subm Dr: Connor Crawley,DO Tissues: A Skin-Other than Cyst, tag, debridement or plastic repair (L CHEEK LESION) B Skin-Other than Cyst, tag, debridement or plastic repair (SCALP LESION) Procedures: , Tristan/Micro L4/2, FS HE/8 Patient: Chiki Juarez [id number] (Continued) Specimen: [id number] Received: 06/01/24-8677 (Continued) Gross Description (Continued) lesion and consists [...] Nichols CPT Codes 88 305 x 2 24417 x 2 Specimen: [id number] Received: 06/01/24 Status: GABBY Giron Num: [id number] Spec Type: Surgical Subm Dr: Connor Crawley, Tissues: A Skin-Other than Cyst, tag, debridement or plastic repair (L CHEEK L (more content not included)... Normal [facility] Provider Letteron 06-01-2024 Provider Letter Provider Letter June 01, 2024 CHIKI JUAREZ [address] [place] [phone] : 1945 Dear Kwaku, We have been trying to reach you with no success. It is important that you return our call regarding your mobility scooter upon receiving this letter. Also, at the time of your call, please provide us with your current information. Thank you for your prompt attention to this matter. Sincerely, [place] [address] ext [phone] [facility] Ambulatory Visit Summaryon 1 Ambulatory Visit [...] physician if questions or concerns Misc Prescription (Handicap Gilberto, 5 years.) Misc Prescription (Nebulizer accessory [...] PM EST With: Pito Patterson MD Where: [address] [address]- Thursday 8:00 AM EDT With: Where: [facility] [address] [address]- Thursday 9:45 AM EDT With: Oni MCKEON MD Where: [facility] [address] [place] [address] [place] [address]- Medications What How Much When Why Instructions [...] Every day Oxygen - patient states his art museum aide just increased this to 4LPM Contact prescribing physician if questions or concerns Unchanged potassium chloride (potassium chl (more content not included)... 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 Chronic kidney disease stage 3a is [...] 3352F Influ (more content not included)... Normal [facility] Comment on above: Result Comment: Elec tronically Signed By: Navarro VENTURA, Pito Underwood.otf\Date and Time Signed: 05/17/24 11:03 EDT Office Visiton 05-13-2024 Follow-up visit [id number] Tremaine Juarez 1945 M Date Provider Department Center 05/13/2024 Laura-DANIELLA EASTON [facility] Family History Problem Relation Age of Onset Stroke Father Family Status - Relation Status Age at Father Level of Service:92016 [place] OFFICE/OUTPATIENT ESTABLISHED LOW MDM 20 MIN Normal [facility] No Panel Informationon 05-03 [facility] Type of biopsy: abernathy ential Informed consent: [...] 1.0 cc [facility] Type of biopsy: abernathy ential Informed consent: [...] taken Amount of lidocaine used: 1.0 cc [facility] Type of biopsy: abernathy ential Informed consent: [...] taken Amount of lidocaine used: 2.0 cc [facility] GLUCOSE, BLOOD (POC)on 04-29 Glucose [Mass/Vol] 98 mg/dL 74 - 99 mg/dL [facility] Comment on above: Location:[facility], [address] [place] [address] , [place], [place], [facility] The Accu-Chek Inform II glucose [...] situations. [facility] PET/CT SKULL-THIGH SUBQon 04-29-2024 [place] PET/CT SKULL-THIGH SUBQ * * *Final Report* [...] * Uptake Time: 45 minutes * Radiopharmaceutical: C98-Jmywzxaobimjdhzqct (FDG) COMPARISON: No previous FDG PET/CT available [...] any questions regarding this interpretation, please call [phone]. If you are unable to reach us at the number above, please feel free to contact [facility]iology at [phone]. [id number] Normal [facility] Urology Office/Clinic Noteon 04-22-2024 Urology [...] Personal history of malignant neoplasm of prostate) [place] 7 (4+3) S/p EBRT 06/2019. PSA 09/23/21 [...] [facility] [address], [place] [address]- [phone] Additional Instructions: 1 yr w/ PSA Patient Education Prostate Cancer Screening INettie, personally scribed for Dr. Mckeon on 04/22/2024 10:36:14. . Documentation recorded by the scribeNettie, accurately [...] Cap, 300 (more content not included)... Normal [facility] Comment on above: Result Comment: Elec tronically Signed By: Oni MCKEON MD\.br\Date and Time Signed: 04/22/24 10:37 EDT\.br\Electronically Co-Signed By: Nettie Wolff\.br\Date and Time Co-Signed: 04/22/24 10:36 EDT CBC W Auto Differential pane l (Bld)on 04-20-2024 Anisocytosis Ql (Bld) Present [facility] Basophils (Bld) [#/Vol] 0.00 10*3/uL [facility] Basophils/100 WBC (Bld) 0.0 % [facility] Differential cell count method Nom (Bld) Manual [facility] Eosinophils (Bld) [#/Vol] 0.00 10*3/uL [facility] Eosinophils/100 WBC (Bld) 0.0 % [facility] Erythrocyte distribution width (RBC) [Ratio] 15.2 % High 11.5 - 15.0 % [facility] Hematocrit (Bld) [Volume fraction] 37.6 % Low 39.0 - 51.0 % [facility] Hemoglobin (Bld) [Mass/Vol] 12.3 g/dL Low 13.0 - 17.0 g/dL [facility] Interpretation and review of laboratory results Abnormal [facility] Lymphocytes (Bld) [#/Vol] 0.75 10*3/uL Low [facility] Lymphocytes/100 WBC (Bld) 17.0 % [facility] MCH (RBC) [Entitic mass] 34.2 pg High 26.0 - 34.0 pg [facility] MCHC (RBC) [Mass/Vol] 32.7 g/dL 30.5 - 36.0 g/dL [facility] MCV (RBC) [Entitic vol] 104.4 fL High 80.0 - 100.0 fL [facility] [place] % 1.0 % [facility] Monocytes (Bld) [#/Vol] 1.73 10*3/uL High NINF [facility] Monocytes/100 WBC (Bld) 39.0 % [facility] Neutrophils (Bld) [#/Vol] 1.91 10*3/uL [facility] Neutrophils/100 WBC (Bld) 43.0 % [facility] Nucleated RBC (Bld) [#/Vol] NINF [facility] Nucleated RBC/100 WBC (Bld) [Ratio] 0.0 % /100 WBC [facility] Ovalocytes LM Ql (Bld) Few [facility] Platelet mean volume (Bld) [Entitic vol] 10.0 fL 9.0 - 12.7 fL [facility] Platelets (Bld) [#/Vol] 136 10*3/uL Low [facility] Platelets Estimate (Bld) [#/Vol] Adequate [facility] Polychromasia LM Ql (Bld) Slight [facility] RBC (Bld) [#/Vol] 3.60 10*6/uL Low 4.20 - 6.0 0 m/uL [facility] Red Cell Morph Reviewed: see result s of individual morphologies [facility] WBC (Bld) [#/Vol] 4.44 10*3/uL [facility] WBC Left Shift Ql (Bld) Present [facility] ANC=1.55 The followi ng results were reported as preliminary values due to instrument flagging. Interpret with caution. Final results may vary.Results requested and read back by: [email or web address] @1418 9'3'24 GAY This is an appended report. These results have been appended to a previously verified report. [facility] Basic metabolic 2000 panelon 04-19-2024 Anion gap [Moles/Vol] 15 mmol/L 8 - 15 mmol/L [facility] Calcium [Mass/Vol] 9.2 mg/dL 8.5 - 10. 2 mg/dL [facility] Comment on above: Corrected result: Pr eviously reported as 9.6 mg/dL on 04/19/2024 at 2:41 PM EDT. Chloride [Moles/Vol] 105 mmol/L 98 - 10 7 mmol/L [facility] CO2 [Moles/Vol] 25 mmol/L 22 - 30 mmol/L [facility] Comment on above: Corrected result: Pr eviously reported as 27 mmol/L on 04/19/2024 at 2:41 PM EDT. Creatinine [Mass/Vol] 1.37 mg/dL High 0.73 - 1.22 mg/dL [facility] Comment on above: Corrected result: Pr eviously reported as 1.36 mg/dL on 04/19/2024 at 2:41 PM EDT. GFR/1.73 sq M.predicted among non-blacks MDRD (S/P/Bld) [Vol rate/Area] 53 mL/min/{1.73_m2} Low - PINF [facility] Comment on above: Estimated Glomerular Filtration [...] 120 mg/dL High 74 - 99 mg/dL [facility] Comment on above: The Citizen [place] Diabete s Association (ADA) provides guidance for [...] Standards of Medical Care in Diabetes 2016, [place] Diabetes Association. Diabetes Care. 2016.39(Suppl 1). Corrected result: Previously reported as 126 mg/dL on 04/19/2024 at 2:41 PM EDT. Interpretation and review of laboratory results Abnormal [facility] Potassium [Moles/Vol] 4.4 mmol/L 3.7 - 5.1 mmol/L [facility] Sodium [Moles/Vol] 145 mmol/L High 136 - 144 mmol/L [facility] Urea nitrogen [Mass/Vol] 20 mg/dL 9 - 24 mg/dL [facility] Comment on above: Corrected result: Pr eviously reported as 21 mg/dL on 04/19/2024 at 2:41 PM EDT. [facility] Anion gap [Moles/Vol] 15 mmol/L Normal 8-15 [facility] Comment on above: Order Comment: Speci men Type: BLOOD SPECIMENOrdering Facility: [facility] Address: [address] [place] [address] Performed By: #### 2 4321-2 ####[facility] LABCLIA [id number] [place] [address] [place] Calcium [Mass/Vol] 9.2 mg/dL Normal 8.5-10.2 [facility] Comment on above: Order Comment: Speci men Type: BLOOD SPECIMENOrdering Facility: [facility] Address: [address] [place] [address] Result Comment: Enmanuel ected result: Previously reported as 9.6 mg/dL on 04/19/2024 at 2:41 PM EDT. Performed By: #### 2 4321-2 ####[facility] LABCLIA [id number] [place] [address] [place] Chloride [Moles/Vol] 105 mmol/L Normal 98-107 [facility] Comment on above: Order Comment: Speci men Type: BLOOD SPECIMENOrdering Facility: [facility] Address: [address] [place] [address] Performed By: #### 2 4321-2 ####[facility] LABCLIA [id number] [place] [address] [place] CO2 [Moles/Vol] 25 mmol/L Normal 22-30 [facility] Comment on above: Order Comment: Speci men Type: BLOOD SPECIMENOrdering Facility: [facility] Address: [address] [place] [address] Result Comment: Enmanuel ected result: Previously reported as 27 mmol/L on 04/19/2024 at 2:41 PM EDT. Performed By: #### 2 4321-2 ####[facility] LABIA [id number] [place] [address] [place] [facility] Creatinine [Mass/Vol] 1.37 mg/dL High 0.73-1.22 [facility] Comment on above: Order Comment: Speci men Type: BLOOD SPECIMENOrdering Facility: [facility] Address: [address] [place] [address] Result Comment: Enmanuel ected result: Previously reported as 1.36 mg/dL on 04/19/2024 at 2:41 PM EDT. Performed By: #### 2 4321-2 ####[facility] LABIA [id number] [place] [address] [place] Creatinine and Glomerular filtration rate.predicted panel (S/P/Bld) 53 mL/min/1.73m??? Low >=60 [facility] Comment on above: Order Comment: Speci men Type: BLOOD SPECIMENOrdering Facility: [facility] Address: [address] [place] [address] Result Comment: Ary mated Glomerular Filtration Rate [...] PM EDT. Performed By: #### 2 4321-2 ####[facility] LABCLIA [id number] [place] [address] [place] Glucose [Mass/Vol] 120 mg/dL High 74-99 [facility] Comment on above: Order Comment: Liliya hadley Type: BLOOD SPECIMENOrdering Facility: [facility] Address: [address] [place] [address] Result Comment: The [place] Diabetes Association (ADA) provides guidance for cutoff [...] Standards of Medical Care in Diabetes 2016, [place] Diabetes Association. Diabetes Care. 2016.39(Suppl 1). Corrected result: Previously reported as 126 mg/dL on 04/19/2024 at 2:41 PM EDT. Performed By: #### 2 4321-2 ####[facility] LABCLIA [id number] [place] [id number] [place] Potassium [Moles/Vol] 4.4 mmol/L Normal 3.7-5.1 [facility] Comment on above: Order Comment: Liliya hadley Type: BLOOD SPECIMENOrdering Facility: [facility] Address: [address] [place] [address] Performed By: #### 2 4321-2 ####[facility] LABCLIA [id number] [place] [address] [place] Sodium [Moles/Vol] 145 mmol/L High 136-144 [facility] Comment on above: Order Comment: Speci men Type: BLOOD SPECIMENOrdering Facility: [facility] Address: [address] [place] [address] Performed By: #### 2 4321-2 ####[facility] LABCLIA [id number] [place] [address] [place] Urea nitrogen [Mass/Vol] 20 mg/dL Normal 9-24 [facility] Comment on above: Order Comment: Speci men Type: BLOOD SPECIMENOrdering Facility: [facility] Address: [address] [place] [address] Result Comment: Enmanuel ected result: Previously reported as 21 mg/dL on 04/19/2024 at 2:41 PM EDT. Performed By: #### 2 4321-2 ####[facility] LABCLIA [id number] [place] [address] [place] CBC W Auto Differential pane l (Bld)on 04-19-2024 Anisocytosis Ql (Bld) Present Normal [facility] Comment on above: Order Comment: Speci men Type: BLOOD SPECIMENOrdering Facility: [facility] Address: [address] [place] [address] Performed By: #### 5 7021-8 ####[facility] LABCLIA [id number] [place], [place] [address] LABCLIA [id number] [place] [address] [place] Basophils (Bld) [#/Vol] 0.00 10*3/uL Normal <0.11 [facility] Comment on above: Order Comment: Speci men Type: BLOOD SPECIMENOrdering Facility: [facility] Address: [address] [place] [address] Performed By: #### 5 7021-8 ####[facility] LABCLIA [id number] [address] LABCLIA [id number] [place] [address] [place] Basophils/100 WBC (Bld) 0.0 % Normal [facility] Comment on above: Order Comment: Speci men Type: BLOOD SPECIMENOrdering Facility: [facility] Address: [address] [place] [address] Performed By: #### 5 7021-8 ####[facility] LABCLIA [id number] [address] LABCLIA [id number] [place] [address] [place] Differential cell count method Nom (Bld) Manual Normal [facility] Comment on above: Order Comment: Speci men Type: BLOOD SPECIMENOrdering Facility: [facility] Address: [address] [place] [address] Performed By: #### 5 7021-8 ####[facility] LABCLIA [id number] [address] LABCLIA [id number] [place] [address] [place] Eosinophils (Bld) [#/Vol] 0.00 10*3/uL Normal <0.46 [facility] Comment on above: Order Comment: Speci men Type: BLOOD SPECIMENOrdering Facility: [facility] Address: [address] [place] [address] Performed By: #### 5 7021-8 ####[facility] LABCLIA [id number] [address] LABCLIA [id number] [place] [address] [place] Eosinophils/100 WBC (Bld) 0.0 % Normal [facility] Comment on above: Order Comment: Speci men Type: BLOOD SPECIMENOrdering Facility: [facility] Address: [address] [place] [address] Performed By: #### 5 7021-8 ####[facility] LABCLIA [id number] [address] LABCLIA [id number] [place] [address] [place] Erythrocyte distribution width (RBC) [Ratio] 15.2 % High 11.5-15.0 [facility] Comment on above: Order Comment: Speci men Type: BLOOD SPECIMENOrdering Facility: [facility] Address: [address] [place] [address] Performed By: #### 5 7021-8 ####[facility] LABCLIA [id number] [address] LABCLIA [id number] [place] [address] [place] Hematocrit (Bld) [Volume fraction] 37.6 % Low 39.0-51.0 [facility] Comment on above: Order Comment: Speci men Type: BLOOD SPECIMENOrdering Facility: [facility] Address: [address] [place] [address] Performed By: #### 5 7021-8 ####[facility] LABCLIA [id number] [address] LABCLIA [id number] [place] [address] [place] Hemoglobin (Bld) [Mass/Vol] 12.3 g/dL Low 13.0-17.0 [facility] Comment on above: Order Comment: Speci men Type: BLOOD SPECIMENOrdering Facility: [facility] Address: [address] [place] [address] Performed By: #### 5 7021-8 ####[facility] LABCLIA [id number] [place] [id number] LABCLIA [id number] [place] [address] [place] Lymphocytes (Bld) [#/Vol] 0.75 10*3/uL Low 1.00-4.00 [facility] Comment on above: Order Comment: Speci men Type: BLOOD SPECIMENOrdering Facility: [facility] Address: [address] [place] [address] Performed By: #### 5 7021-8 ####[facility] LABCLIA [id number] [address] LABCLIA [id number] [place] [address] [place] Lymphocytes/100 WBC (Bld) 17.0 % Normal [facility] Comment on above: Order Comment: Speci men Type: BLOOD SPECIMENOrdering Facility: [facility] Address: [address] [place] [address] Performed By: #### 5 7021-8 ####[facility] LABCLIA [id number] [address] LABCLIA [id number] [place] [address] [place] MCH (RBC) [Entitic mass] 34.2 pg High 26.0-34.0 [facility] Comment on above: Order Comment: Speci men Type: BLOOD SPECIMENOrdering Facility: [facility] Address: [address] [place] [address] Performed By: #### 5 7021-8 ####[facility] LABCLIA [id number] [address] LABCLIA [id number] [place] [address] [place] MCHC (RBC) [Mass/Vol] 32.7 g/dL Normal 30.5-36.0 [facility] Comment on above: Order Comment: Speci men Type: BLOOD SPECIMENOrdering Facility: [facility] Address: [address] [place] [address] Performed By: #### 5 7021-8 ####[facility] LABCLIA [id number] [address] LABCLIA [id number] [place] [address] [place] MCV (RBC) [Entitic vol] 104.4 fL High 80.0-100.0 [facility] Comment on above: Order Comment: Speci men Type: BLOOD SPECIMENOrdering Facility: [facility] Address: [address] [place] [address] Performed By: #### 5 7021-8 ####[facility]ITAL[facility] LABCLIA [id number] [address] LABCLIA [id number] [place] [address] [place] Metamyelocytes/100 WBC (Bld) 1.0 % Normal [facility] Comment on above: Order Comment: Speci men Type: BLOOD SPECIMENOrdering Facility: [facility] Address: [address] [place] [address] Performed By: #### 5 7021-8 ####[facility] LABCLIA [id number] [address] LABCLIA [id number] [place] [address] [place] Monocytes (Bld) [#/Vol] 1.73 10*3/uL High <0.87 [facility] Comment on above: Order Comment: Speci men Type: BLOOD SPECIMENOrdering Facility: [facility] Address: [address] [place] [address] Performed By: #### 5 7021-8 ####[facility] LABCLIA [id number] [address] LABCLIA [id number] [place] [address] [place] Monocytes/100 WBC (Bld) 39.0 % Normal [facility] Comment on above: Order Comment: Speci men Type: BLOOD SPECIMENOrdering Facility: [facility] Address: [address] [place] [address] Performed By: #### 5 7021-8 ####[facility] LABCLIA [id number] [address] LABCLIA [id number] [place] [address] [place] Neutrophils (Bld) [#/Vol] 1.91 10*3/uL Normal 1.45-7.50 [facility] Comment on above: Order Comment: Speci men Type: BLOOD SPECIMENOrdering Facility: [facility] Address: [address] [place] [address] Performed By: #### 5 7021-8 ####[facility] LABCLIA [id number] [address] LABCLIA [id number] [place] [address] [place] Neutrophils/100 WBC (Bld) 43.0 % Normal [facility] Comment on above: Order Comment: Speci men Type: BLOOD SPECIMENOrdering Facility: [facility] Address: [address] [place] [address] Performed By: #### 5 7021-8 ####[facility] LABCLIA [id number] [address] LABCLIA [id number] [place] [address] [place] Nucleated RBC (Bld) [#/Vol] 10*3/uL Normal <0.01 [facility] Comment on above: Order Comment: Speci men Type: BLOOD SPECIMENOrdering Facility: [facility] Address: [address] [place] [address] Performed By: #### 5 7021-8 ####[facility] LABCLIA [id number] [place] [id number] LABCLIA [id number] [place] [address] [place] Nucleated RBC/100 WBC (Bld) [Ratio] 0.0 /100 WBC Normal [facility] Comment on above: Order Comment: Speci men Type: BLOOD SPECIMENOrdering Facility: [facility] Address: [address] [place] [address] Performed By: #### 5 7021-8 ####[facility] LABCLIA [id number] [address] LABCLIA [id number] [place] [address] [place] Ovalocytes LM Ql (Bld) Few Normal [facility] Comment on above: Order Comment: Speci men Type: BLOOD SPECIMENOrdering Facility: [facility] Address: [address] [place] [address] Performed By: #### 5 7021-8 ####[facility] LABCLIA [id number] [address] LABCLIA [id number] [place] [address] [place] Platelet mean volume (Bld) [Entitic vol] 10.0 fL Normal 9.0-12.7 [facility] Comment on above: Order Comment: Speci men Type: BLOOD SPECIMENOrdering Facility: [facility] Address: [address] [place] [address] Performed By: #### 5 7021-8 ####[facility] LABCLIA [id number] [address] LABCLIA [id number] [place] [address] [place] Platelets (Bld) [#/Vol] 136 10*3/uL Low 150-400 [facility] Comment on above: Order Comment: Speci men Type: BLOOD SPECIMENOrdering Facility: [facility] Address: [address] [place] [address] Performed By: #### 5 7021-8 ####[facility] LABCLIA [id number] [address] LABCLIA [id number] [place] [address] [place] Platelets Estimate (Bld) [#/Vol] Adequate Normal [facility] Comment on above: Order Comment: Speci men Type: BLOOD SPECIMENOrdering Facility: [facility] Address: [address] [place] [address] Performed By: #### 5 7021-8 ####[facility] LABCLIA [id number] [address] LABCLIA [id number] [place] [address] [place] Polychromasia LM Ql (Bld) Slight Normal [facility] Comment on above: Order Comment: Speci men Type: BLOOD SPECIMENOrdering Facility: [facility] Address: [address] [place] [address] Performed By: #### 5 7021-8 ####[facility] LABCLIA [id number] [address] LABCLIA [id number] [place] [address] [place] RBC (Bld) [#/Vol] 3.60 10*6/uL Low 4.20-6.00 [facility] Comment on above: Order Comment: Speci men Type: BLOOD SPECIMENOrdering Facility: [facility] Address: [address] [place] [address] Performed By: #### 5 7021-8 ####[facility] LABCLIA [id number] [place] [id number] LABCLIA [id number] [place] [address] [place] RED CELL MORPH Reviewed: see result s of individual morphologies Normal [facility] Comment on above: Order Comment: Speci men Type: BLOOD SPECIMENOrdering Facility: [facility] Address: [address] [place] [address] Performed By: #### 5 7021-8 ####[facility] LABCLIA [id number] [address] LABCLIA [id number] [place] [address] [place] WBC (Bld) [#/Vol] 4.44 10*3/uL Normal 3.70-11.00 [facility] Comment on above: Order Comment: Speci men Type: BLOOD SPECIMENOrdering Facility: [facility] Address: [address] [place] [address] Performed By: #### 5 7021-8 ####[facility] LABCLIA [id number] [address] LABCLIA [id number] [place] [address] [place] WBC Left Shift Ql (Bld) Present Normal [facility] Comment on above: Order Comment: Speci men Type: BLOOD SPECIMENOrdering Facility: [facility] Address: [address] [place] [address] Performed By: #### 5 7021-8 ####[facility] LABCLIA [id number] [address] LABCLIA [id number] [place] [address] [place] CNOVSPon 04-19-2024 CNOVSP Visit (SP) Office (H [facility]) -- CHIKI JUAREZ ([id number]) 1945 M Date Time Provider Department 04/19/24 [...] visit here 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 For [...] No date: COPD (chronic obstructive pulmonary disease) ([facility]) No date: COVID No date: Cystic fibrosis [...] or palpitati (more content not included)... Normal [facility] CNPNon 04-19-2024 [facility] CHIK[facility]UARE[facility] ([id number]) 1945 Date Time Provider Department 04/19/24 TYLER [...] 04/20/2024 10:41 AM Signed Records faxed to [facility] Dermatology. Jade Flores, Su Valles 04/26/2024 10:35 AM Signed Patient is scheduled with MARY Simmons on 05/03/24 @ 11:00. Allergies As of Date: 04/19/2024 Noted Allergy Reaction SPIRONOLACTONE 09/18/2021 14 - Other: See Comments Comments: Leg cramps, Hyperkalemia Date Reviewed: 04/19/2024 Reviewed by: Jenna Vidal, CONOR - Fully Assessed Reason for Visit: Future [...] Status:Closed by SHERON METCALF on 04/26/24 Normal [facility] IMMUNOFIXATION SCREEN, SERUM on 04-19-2024 INTERPRETATION (MPA) Atypical restricted bands are present in the IgG and lambda regions. Consistent with IgG lambda monoclonal gammopathy. Normal [facility] Comment on above: Order Comment: Speci men Type: BLOOD SPECIMENOrdering Facility: [facility] Address: [address] [place] [address] Performed By: #### I FESC ####[facility] LABCLIA [id number] [address] [place] MPA RESULT M protein is present. Abnormal No M p rotein is identified. [facility] Comment on above: Order Comment: Speci men Type: BLOOD SPECIMENOrdering Facility: [facility] Address: [address] [place] [address] Performed By: #### I FESC ####[facility] LABCLIA [id number] [address] [place] STAFF REVIEW (MPA) Reviewed by Alison Langford MD [facility] Comment on above: Order Comment: Speci men Type: BLOOD SPECIMENOrdering Facility: [facility] Address: [address] [place] [address] Performed By: #### I FESC ####[facility] LABCLIA [id number] [place] [address] [place] IMMUNOGLOBULINS,IGG,IGA,IGMo n 04-19-2024 IgA [Mass/Vol] 124 mg/dL Normal 70-400 [facility] Comment on above: Order Comment: Speci men Type: BLOOD SPECIMENOrdering Facility: [facility] Address: [address] [place] [address] Performed By: #### S ERIMM ####[facility] LABCLIA [id number] [place] [address] [place] IgG [Mass/Vol] 1147 mg/dL Normal 700-1600 [facility] Comment on above: Order Comment: Speci men Type: BLOOD SPECIMENOrdering Facility: [facility] Address: [address] [place] [address] Performed By: #### S ERIMM ####[facility] LABIA [id number] [place] [address] [place] IgM [Mass/Vol] 75 mg/dL Normal 40-230 [facility] Comment on above: Order Comment: Speci men Type: BLOOD SPECIMENOrdering Facility: [facility] Address: [address] [place] [address] Performed By: #### S ERIMM ####[facility] LABIA [id number] [place] [address] [place] KAPPA/ARDON,FREE,SERon 2023 Immunoglobulin light chains.kappa.free (S) [Mass/Vol] 34.6 mg/L High 3.3-19.4 [facility] Comment on above: Order Comment: Speci men Type: BLOOD SPECIMEN [facility] Address: [address] [place], [place] [id number] Result Comment: Rare ly, increased serum free light chains levels may not be detected or accurately quantified due to prozone phenomenon or in high viscosity samples using this immunoturbidimetric assay. Correlation with other laboratory results and clinical findings is recommended. The [place] Free Light Chain was performed using the Binding Site Optilite immunoturbidimetric method. Result obtained with different assay methods or kits cannot be used interchangeably. Performed By: #### I FESC #### [facility] CLIA [id number] [address] [place] [address] [place] Immunoglobulin light chains.kappa/Immunog lobulin light chains.lambda (S) [Mass ratio] 1.90 High 0.26-1.65 [facility] Comment on above: Order Comment: Speci men Type: BLOOD SPECIMEN [facility] Address: [address] [place] [address] Performed By: #### I FESC #### [facility] CLIA [id number] [address] [place] [address] [place] Immunoglobulin light chains.lambda.free [Mass/Vol] 18.2 mg/L Normal 5.7-26.3 [facility] Comment on above: Order Comment: Speci men Type: BLOOD SPECIMEN [facility] Address: [address] [place] [address] Result Comment: Rare ly, increased serum free [...] interchangeably. Performed By: #### I FESC #### [facility] CLIA [id number] [address] [place] [address] [place] PROTEIN ELECTROPHORESIS SERU M WITH CARSON (P)on 04-19-2024 Albumin [Mass/Vol] 3.82 g/dL Normal 3.43-5.41 [facility] Comment on above: Order Comment: Speci men Type: BLOOD SPECIMENOrdering Facility: [facility] Address: [address] [place] [address] Performed By: #### L [id number] ####[facility] LABIA [id number] [place] [address] [place] Alpha 1 globulin Elph [Mass/Vol] 0.33 g/dL Normal 0.18-0.43 [facility] Comment on above: Order Comment: Speci men Type: BLOOD SPECIMENOrdering Facility: [facility] Address: [address] [place] [address] Performed By: #### L [id number] ####[facility] [id number] [place] [address] [place] Alpha 2 globulin Elph [Mass/Vol] 0.69 g/dL Normal 0.42-0.98 [facility] Comment on above: Order Comment: Speci men Type: BLOOD SPECIMENOrdering Facility: [facility] Address: [address] [place] [address] Performed By: #### L [id number] ####[facility] [id number] [place] [address] [place] Beta globulin Elph [Mass/Vol] 0.80 g/dL Normal 0.61-1.17 [facility] Comment on above: Order Comment: Speci men Type: BLOOD SPECIMENOrdering Facility: [facility] Address: [address] [place] [address] Performed By: #### L [id number] ####[facility] [id number] [place] [address] [place] COMMENT (SERUM PROT ELECTRO) Monoclonal Protein analysis (immunofixation) is not indicated. Normal [facility] Comment on above: Order Comment: Speci men Type: BLOOD SPECIMENOrdering Facility: [facility] Address: [address] [place] [address] Performed By: #### L [id number] ####[facility] LABCLIA [id number] [place] [address] [place] Gamma globulin Elph [Mass/Vol] 0.95 g/dL Normal 0.53-1.51 [facility] Comment on above: Order Comment: Speci men Type: BLOOD SPECIMENOrdering Facility: [facility] Address: [address] [place] [address] Performed By: #### L [id number] ####[facility] LABIA [id number] [place] [address] [place] INTERPRETATION COMMENT FOR PROTEIN ELECTROPHORESIS The atypical region is relatively poorly defined and may represent an unusual presentation of polyclonal immunoglobulins, but cannot rule out the presence of a low level M protein. If clinically indicated, monoclonal protein analysis and serum free light chain analysis are suggested to evaluate further for monoclonal gammopathy. Normal [facility] Comment on above: Order Comment: Speci men Type: BLOOD SPECIMENOrdering Facility: [facility] Address: [address] [place] [address] Performed By: #### L [id number] ####[facility] LABIA [id number] [address] STATES [facility] M-PROTEIN LOCATION Normal [facility] Comment on above: Order Comment: Speci [facility] Type: BLOOD SPECIMENOrdering Facility: [facility] Address: [address] [place] [address] Result Comment: Not Applicable. Performed By: #### L [id number] ####[facility] LABIA [id number] [place] [address] [place] Protein Fractions [Interp] An atypical region of restricted mobility is identified on protein electrophoresis. Abnormal No definitive M protein is identified on protein electrophore sis. [facility] Comment on above: Order Comment: Speci [facility] Type: BLOOD SPECIMENOrdering Facility: [facility] Address: [address] [place] [address] Performed By: #### L [id number] ####[facility] LABCLIA [id number] [place] [address] [place] Protein.monoclonal Elph [Mass/Vol] 0.00 g/dL Normal <=0.00 [facility] Comment on above: Order Comment: Speci men Type: BLOOD SPECIMENOrdering Facility: [facility] Address: [address] [place] [address] Performed By: #### L [id number] ####[facility] LABCLIA [id number] [place] [address] [place] SPE STAFF REVIEW Reviewed by Alison Langford MD [facility] Comment on above: Order Comment: Speci men Type: BLOOD SPECIMENOrdering Facility: [facility] Address: [address] [place] [address] Performed By: #### L [id number] ####[facility] LABCLIA [id number] [place] [address] [place] Prot SerPl-mCncon 04-19-2024 Protein [Mass/Vol] 6.6 g/dL Normal 6.3-8.0 [facility] Comment on above: Order Comment: Speci men Type: BLOOD SPECIMENOrdering Facility: [facility] Address: [address] [place] [address] Performed By: #### 2 885-2 ####[facility] LABIA [id number] [address] [place] Reminderson 03-03-2024 Reminders Reminders From: Solange Broussard To: EU - Recalls Mckeon; Sent: 06/09/2023 16:03:24 EDT Show up: 01/16/2024 16:03:00 EDT Subject: renal US Due Date/Time: 02/01/2024 16:03:00 EDT Reminder/Recall Patient needs renal US prior to February 2024 appt f/u scheduled 03/14/24 LM on pt's VM notifying him that order for ZAMZAM has been faxed to [facility]. They should be reaching out to get him scheduled. If he does not hear from them w/in 1wk he is to call our office. F/U schedule dw/PRW 03/14/24 to review results. ZAMZAM scheduled 03/03/24. F/U schedule dw/PRW 03/14/24 to review results. Completed Normal [facility] CNPNon 02-02-2024 CNPN Telephone ([facility]) -- CHIKI JUAREZ ([id number]) 1945 M Date Time Provider Department 02/02/24 [...] Status:Closed by VALERIE MAYES on 02/02/24 Normal [facility] Basic metabolic 2000 panelon 01-21-2024 Anion gap [Moles/Vol] 7 mmol/L Low 8-15 [facility] Comment on above: Order Comment: Speci men Type: BLOOD SPECIMENOrdering Facility: [facility] Address: [address] [place] [address] Performed By: #### 2 4321-2 ####[facility] LABCLIA [id number] [place] [address] Calcium [Mass/Vol] 9.3 mg/dL Normal 8.5-10.2 [facility] Comment on above: Order Comment: Speci men Type: BLOOD SPECIMENOrdering Facility: [facility] Address: [address] [place] [address] Performed By: #### 2 4321-2 ####[facility] LABCLIA [id number] [place] [address] Chloride [Moles/Vol] 109 mmol/L High 98-107 [facility] Comment on above: Order Comment: Speci men Type: BLOOD SPECIMENOrdering Facility: [facility] Address: [address] [place] [address] Performed By: #### 2 4321-2 ####[facility] LABCLIA [id number] [place] [address] CO2 [Moles/Vol] 26 mmol/L Normal 22-30 [facility] Comment on above: Order Comment: Speci men Type: BLOOD SPECIMENOrdering Facility: [facility] Address: [address] [place] [address] Performed By: #### 2 4321-2 ####[facility] LABCLIA [id number] [place] [address] Creatinine [Mass/Vol] 1.31 mg/dL High 0.73-1.22 [facility] Comment on above: Order Comment: Speci men Type: BLOOD SPECIMENOrdering Facility: [facility] Address: [address] [place] [address] Performed By: #### 2 4321-2 ####[facility] LABCLIA [id number] [place] [address] Creatinine and Glomerular filtration rate.predicted panel (S/P/Bld) 56 mL/min/1.73m??? Low >=60 [facility] Comment on above: Order Comment: Speci men Type: BLOOD SPECIMENOrdering Facility: [facility] Address: [address] [place] [address] Result Comment: Ary mated Glomerular Filtration Rate [...] actual GFR. Performed By: #### 2 4321-2 ####[facility] LABCLIA [id number] [place] [address] Glucose [Mass/Vol] 121 mg/dL High 74-99 [facility] Comment on above: Order Comment: Speci men Type: BLOOD SPECIMENOrdering Facility: [facility] Address: [address] [place] [address] Result Comment: The [place] Diabetes Association (ADA) provides guidance for cutoff [...] Standards of Medical Care in Diabetes 2016, [place] Diabetes Association. Diabetes Care. 2016.39(Suppl 1). Performed By: #### 2 4321-2 ####[facility] LABCLIA [id number] [place] [address] Potassium [Moles/Vol] 4.1 mmol/L Normal 3.7-5.1 [facility] Comment on above: Order Comment: Speci men Type: BLOOD SPECIMENOrdering Facility: [facility] Address: [address] [place] [address] Performed By: #### 2 4321-2 ####[facility] LABCLIA [id number] [place] [address] Sodium [Moles/Vol] 142 mmol/L Normal 136-144 [facility] Comment on above: Order Comment: Speci men Type: BLOOD SPECIMENOrdering Facility: [facility] Address: [address] [place] [address] Performed By: #### 2 4321-2 ####[facility] LABCLIA [id number] [place] [address] Urea nitrogen [Mass/Vol] 17 mg/dL Normal 9-24 [facility] Comment on above: Order Comment: Speci men Type: BLOOD SPECIMENOrdering Facility: [facility] Address: [address] [place] [address] Performed By: #### 2 4321-2 ####[facility] LABIA [id number] [place] [address] CBC W Auto Differential pane l (Bld)on 01-21-2024 Basophils (Bld) [#/Vol] 10*3/uL Normal <0.11 [facility] Comment on above: Order Comment: Speci men Type: BLOOD SPECIMENOrdering Facility: [facility] Address: [address] [place] [address] Performed By: #### 5 7021-8 ####[facility] LABCLIA [id number] [place] [address] Basophils/100 WBC (Bld) 0.3 % Normal [facility] Comment on above: Order Comment: Speci men Type: BLOOD SPECIMENOrdering Facility: [facility] Address: [address] [place] [address] Performed By: #### 5 7021-8 ####[facility] LABCLIA [id number] [place] [address] Differential cell count method Nom (Bld) Auto Normal [facility] Comment on above: Order Comment: Speci men Type: BLOOD SPECIMENOrdering Facility: [facility] Address: [address] [place] [address] Performed By: #### 5 7021-8 ####[facility] LABCLIA [id number] [place] [address] Eosinophils (Bld) [#/Vol] 10*3/uL Normal <0.46 [facility] Comment on above: Order Comment: Speci men Type: BLOOD SPECIMENOrdering Facility: [facility] Address: [address] [place] [address] Performed By: #### 5 7021-8 ####[facility] LABCLIA [id number] [place] [address] Eosinophils/100 WBC (Bld) 0.3 % Normal [facility] Comment on above: Order Comment: Speci men Type: BLOOD SPECIMENOrdering Facility: [facility] Address: [address] [place] [address] Performed By: #### 5 7021-8 ####[facility] LABCLIA [id number] [place] [address] Erythrocyte distribution width (RBC) [Ratio] 14.6 % Normal 11.5-15.0 [facility] Comment on above: Order Comment: Speci men Type: BLOOD SPECIMENOrdering Facility: [facility] Address: [address] [place] [address] Performed By: #### 5 7021-8 ####[facility] LABCLIA [id number] [place] [address] Hematocrit (Bld) [Volume fraction] 35.7 % Low 39.0-51.0 [facility] Comment on above: Order Comment: Speci men Type: BLOOD SPECIMENOrdering Facility: [facility] Address: [address] [place] [address] Performed By: #### 5 7021-8 ####[facility] LABIA [id number] [place] [address] Hemoglobin (Bld) [Mass/Vol] 11.4 g/dL Low 13.0-17.0 [facility] Comment on above: Order Comment: Speci men Type: BLOOD SPECIMENOrdering Facility: [facility] Address: [address] [place] [address] Performed By: #### 5 7021-8 ####[facility] LABCLIA [id number] [place] [address] Immature granulocytes (Bld) [#/Vol] 0.08 10*3/uL Normal <0.10 [facility] Comment on above: Order Comment: Speci men Type: BLOOD SPECIMENOrdering Facility: [facility] Address: [address] [place] [address] Performed By: #### 5 7021-8 ####[facility] LABCLIA [id number] [place] [address] Immature granulocytes/100 WBC (Bld) 2.2 % Normal [facility] Comment on above: Order Comment: Speci men Type: BLOOD SPECIMENOrdering Facility: [facility] Address: [address] [place] [address] Performed By: #### 5 7021-8 ####[facility] LABCLIA [id number] [place] [address] Lymphocytes (Bld) [#/Vol] 0.92 10*3/uL Low 1.00-4.00 [facility] Comment on above: Order Comment: Speci men Type: BLOOD SPECIMENOrdering Facility: [facility] Address: [address] [place] [address] Performed By: #### 5 7021-8 ####[facility] LABCLIA [id number] [place] [address] Lymphocytes/100 WBC (Bld) 25.2 % Normal [facility] Comment on above: Order Comment: Speci men Type: BLOOD SPECIMENOrdering Facility: [facility] Address: [address] [place] [address] Performed By: #### 5 7021-8 ####[facility] LABCLIA [id number] [place] [address] MCH (RBC) [Entitic mass] 33.8 pg Normal 26.0-34.0 [facility] Comment on above: Order Comment: Speci men Type: BLOOD SPECIMENOrdering Facility: [facility] Address: [address] [place] [address] Performed By: #### 5 7021-8 ####[facility] LABCLIA [id number] [place] [address] MCHC (RBC) [Mass/Vol] 31.9 g/dL Normal 30.5-36.0 [facility] Comment on above: Order Comment: Speci men Type: BLOOD SPECIMENOrdering Facility: [facility] Address: [address] [place] [address] Performed By: #### 5 7021-8 ####[facility] LABIA [id number] [place] [address] MCV (RBC) [Entitic vol] 105.9 fL High 80.0-100.0 [facility] Comment on above: Order Comment: Speci men Type: BLOOD SPECIMENOrdering Facility: [facility] Address: [address] [place] [address] Performed By: #### 5 7021-8 ####[facility] LABCLIA [id number] [place] [address] Monocytes (Bld) [#/Vol] 1.38 10*3/uL High <0.87 [facility] Comment on above: Order Comment: Speci men Type: BLOOD SPECIMENOrdering Facility: [facility] Address: [address] [place] [address] Performed By: #### 5 7021-8 ####[facility] LABCLIA [id number] [place] [address] Monocytes/100 WBC (Bld) 37.8 % Normal [facility] Comment on above: Order Comment: Speci men Type: BLOOD SPECIMENOrdering Facility: [facility] Address: [address] [place] [address] Performed By: #### 5 7021-8 ####[facility] LABCLIA [id number] [place] [address] Neutrophils (Bld) [#/Vol] 1.25 10*3/uL Low 1.45-7.50 [facility] Comment on above: Order Comment: Speci men Type: BLOOD SPECIMENOrdering Facility: [facility] Address: [address] [place] [address] Performed By: #### 5 7021-8 ####[facility] LABCLIA [id number] [place] [address] Neutrophils/100 WBC (Bld) 34.2 % Normal [facility] Comment on above: Order Comment: Speci men Type: BLOOD SPECIMENOrdering Facility: [facility] Address: [address] [place] [address] Performed By: #### 5 7021-8 ####[facility] LABCLIA [id number] [place] [address] Nucleated RBC (Bld) [#/Vol] 10*3/uL Normal <0.01 [facility] Comment on above: Order Comment: Speci men Type: BLOOD SPECIMENOrdering Facility: [facility] Address: [address] [place] [address] Performed By: #### 5 7021-8 ####[facility] LABCLIA [id number] [place] [address] Nucleated RBC/100 WBC (Bld) [Ratio] 0.0 /100 WBC Normal [facility] Comment on above: Order Comment: Speci men Type: BLOOD SPECIMENOrdering Facility: [facility] Address: [address] [place] [address] Performed By: #### 5 7021-8 ####[facility] LABIA [id number] [place] [address] Platelet mean volume (Bld) [Entitic vol] 9.6 fL Normal 9.0-12.7 [facility] Comment on above: Order Comment: Speci men Type: BLOOD SPECIMENOrdering Facility: [facility] Address: [address] [place] [address] Performed By: #### 5 7021-8 ####[facility] LABIA [id number] [place] [address] Platelets (Bld) [#/Vol] 151 10*3/uL Normal 150-400 [facility] Comment on above: Order Comment: Speci men Type: BLOOD SPECIMENOrdering Facility: [facility] Address: [address] [place] [address] Performed By: #### 5 7021-8 ####[facility] LABIA [id number] [place] [address] RBC (Bld) [#/Vol] 3.37 10*6/uL Low 4.20-6.00 [facility] Comment on above: Order Comment: Speci men Type: BLOOD SPECIMENOrdering Facility: [facility] Address: [address] [place] [address] Performed By: #### 5 7021-8 ####[facility] LABCLIA [id number] [place] [address] WBC (Bld) [#/Vol] 3.65 10*3/uL Low 3.70-11.00 [facility] Comment on above: Order Comment: Speci men Type: BLOOD SPECIMENOrdering Facility: [facility] Address: [address] [place] [address] Performed By: #### 5 7021-8 ####[facility] LABCLIA [id number] [place] [address] IMMUNOFIXATION SCREEN, SERUM on 01-21-2024 INTERPRETATION (MPA) Atypical restricted band is present in the lambda region. Consistent with lambda containing monoclonal gammopathy. IgD and IgE negative by immunofixation. Performed at [facility], [place], [place]. Normal [facility] Comment on above: Order Comment: Speci men Type: BLOOD SPECIMEN [facility] Address: [address] [place] [address] Performed By: #### I FESC #### [facility] [facility] CLIA [id number] [address] [place] [address] [place] MPA RESULT M protein is present. Abnormal No M p rotein is identified. [facility] Comment on above: Order Comment: Speci men Type: BLOOD SPECIMEN Ordering Facility: [facility] Address: [address] [place] [address] Performed By: #### I FESC #### [facility] CLIA [id number] [address] [place] [address] [place] STAFF REVIEW (MPA) Reviewed by Dr. Rowan Ibarra MD [facility] Comment on above: Order Comment: Speci men Type: BLOOD SPECIMEN Ordering Facility: [facility] Address: [address] [place] [address] Performed By: #### I FESC #### [facility] CLIA [id number] [address] [place], [place] [id number] [place] IMMUNOGLOBULINS,IGG,IGA,IGMo n 01-21-2024 IgA [Mass/Vol] 110 mg/dL Normal 70-400 [facility] Comment on above: Order Comment: Speci men Type: BLOOD SPECIMEN Ordering Facility: [facility] Address: [address] [place] [address] Performed By: #### I FESC #### [facility] CLIA [id number] [address] [place] [address] [place] IgG [Mass/Vol] 1011 mg/dL Normal 700-1600 [facility] Comment on above: Order Comment: Speci men Type: BLOOD SPECIMEN Ordering Facility: [facility] Address: [address] [place] [address] Performed By: #### I FES #### [facility] CLIA [id number] [address] [place] [address] [place] IgM [Mass/Vol] 64 mg/dL Normal 40-230 [facility] Comment on above: Order Comment: Speci men Type: BLOOD SPECIMEN Ordering Facility: [facility] Address: [address] [place] [address] Performed By: #### I FESC #### [facility] CLIA [id number] [address] [place] [address] [place] KAPPA/ARDON,FREE,SERon 2023 Immunoglobulin light chains.kappa.free (S) [Mass/Vol] 30.8 mg/L High 3.3-19.4 [facility] Comment on above: Order Comment: Speci men Type: BLOOD SPECIMEN Ordering Facility: [facility] Address: [address] [place] [address] Result Comment: Rare ly, increased serum free light chains levels may not be detected or accurately quantified due to prozone phenomenon or in high viscosity samples using this immunoturbidimetric assay. Correlation with other laboratory results and clinical findings is recommended. The [place] Free Light Chain was performed using the Binding Site Optilite immunoturbidimetric method. Result obtained with different assay methods or kits cannot be used interchangeably. Performed By: #### K LFRS #### [facility] CLIA [id number] [address] [place] [address] [place] Immunoglobulin light chains.kappa/Immunog lobulin light chains.lambda (S) [Mass ratio] 1.77 High 0.26-1.65 [facility] Comment on above: Order Comment: Speci men Type: BLOOD SPECIMEN Ordering Facility: [facility] Address: [address] [place] [address] Performed By: #### K LFRS #### [facility] CLIA [id number] [address] [place] [address] [place] Immunoglobulin light chains.lambda.free [Mass/Vol] 17.4 mg/L Normal 5.7-26.3 [facility] Comment on above: Order Comment: Speci men Type: BLOOD SPECIMEN Ordering Facility: [facility] Address: [address] [place] [address] Result Comment: Rare ly, increased serum free [...] interchangeably. Performed By: #### K LFRS #### [facility] CLIA [id number] [address] [place] [address] [place] PROTEIN ELECTROPHORESIS SERU M WITH CARSON (P)on 01-21-2024 Albumin [Mass/Vol] 3.53 g/dL Normal 3.43-5.41 [facility] Comment on above: Order Comment: Speci men Type: BLOOD SPECIMENOrdering Facility: [facility] Address: [address] [place] [address] Performed By: #### L [id number] ####[facility] [id number] [place] [address] [place] Alpha 1 globulin Elph [Mass/Vol] 0.36 g/dL Normal 0.18-0.43 [facility] Comment on above: Order Comment: Speci men Type: BLOOD SPECIMENOrdering Facility: [facility] Address: [address] [place] [address] Performed By: #### L [id number] ####[facility] [id number] [place] [address] [place] Alpha 2 globulin Elph [Mass/Vol] 0.73 g/dL Normal 0.42-0.98 [facility] Comment on above: Order Comment: Speci men Type: BLOOD SPECIMENOrdering Facility: [facility] Address: [address] [place] [address] Performed By: #### L [id number] ####[facility] [id number] [place] [address] [place] Beta globulin Elph [Mass/Vol] 0.74 g/dL Normal 0.61-1.17 [facility] Comment on above: Order Comment: Speci men Type: BLOOD SPECIMENOrdering Facility: [facility] Address: [address] [place] [address] Performed By: #### L [id number] ####[facility] [id number] [place] [address] [place] COMMENT (SERUM PROT ELECTRO) Monoclonal Protein analysis (immunofixation) is not indicated. Normal [facility] Comment on above: Order Comment: Speci men Type: BLOOD SPECIMENOrdering Facility: [facility] Address: [address] [place] [address] Performed By: #### L [id number] ####[facility] [id number] [place] [address] [place] Gamma globulin Elph [Mass/Vol] 0.84 g/dL Normal 0.53-1.51 [facility] Comment on above: Order Comment: Speci men Type: BLOOD SPECIMENOrdering Facility: [facility] Address: [address] [place] [address] Performed By: #### L [id number] ####[facility] [id number] [place] [address] [place] INTERPRETATION COMMENT FOR PROTEIN ELECTROPHORESIS See separate immunofixation report for characterization of monoclonal gammopathy. Normal [facility] Comment on above: Order Comment: Speci men Type: BLOOD SPECIMENOrdering Facility: [facility] Address: [address] [place] [address] Performed By: #### L [id number] ####[facility] [id number] [address] [place] M-PROTEIN LOCATION Gamma Fraction 1 Normal [facility] Comment on above: Order Comment: Speci men Type: BLOOD SPECIMENOrdering Facility: [facility] Address: [address] [place] [address] Performed By: #### L [id number] ####[facility] [id number] [place] [address] [place] Protein Fractions [Interp] An M protein is identified on protein electrophoresis. Abnormal No definitive M protein is identified on protein electrophore sis. [facility] Comment on above: Order Comment: Speci men Type: BLOOD SPECIMENOrdering Facility: [facility] Address: [address] [place] [address] Performed By: #### L [id number] ####[facility] [id number] [address] [place] Protein.monoclonal Elph [Mass/Vol] 0.10 g/dL High <=0.00 [facility] Comment on above: Order Comment: Speci men Type: BLOOD SPECIMENOrdering Facility: [facility] Address: [address] [place] [address] Performed By: #### L [id number] ####[facility] [id number] [place] [address] [place] SPE STAFF REVIEW Reviewed by Fran Boyd MD, Ph.D ([id number]) Normal [facility] Comment on above: Order Comment: Speci men Type: BLOOD SPECIMENOrdering Facility: [facility] Address: [address] [place] [address] Performed By: #### L [id number] ####[facility] [id number] [place] [address] [place] PSA SerPl-mCncon 01-21-2024 Prostate specific Ag [Mass/Vol] 0.23 ng/mL Normal <2.60 [facility] Comment on above: Order Comment: Speci men Type: BLOOD SPECIMENOrdering Facility: [facility] Address: [address] [place] [address] Result Comment: Tota l PSA test methodology used is the Electrochemiluminescence Immunoassay by [employer]. Total PSA values by differing methodologies cannot be interchanged. Performed By: #### 2 [id number] ####[facility] [id number] [place] [address] [place] Prot SerPl-mCncon 01-21-2024 Protein [Mass/Vol] 6.2 g/dL Low 6.3-8.0 [facility] Comment on above: Order Comment: Speci men Type: BLOOD SPECIMEN [facility] Address: [address] [place] [address] Performed By: #### I FES #### [facility] CLIA [id number] [address] [place] [address] [place] CHEMISTRYOrdered By: SYSTEM [...] reviewed by ts . PROF CHEM 8 (BAS METB)on Anion gap [Moles/Vol] 14.0 mmol/L Normal [facility] Comment on above: Performed By: #### B MP ####[facility] [address] [place] [address]DrJeffery Nichols Calcium [Mass/Vol] 8.8 mg/dL Normal 8.5-10.1 [facility] [place] [facility] Comment on above: Performed By: #### B MP ####[facility] [address] [place] [address]DrJeffery Nichols Chloride [Moles/Vol] 104 mmol/L Normal 98-107 [facility] [place] [facility] Comment on above: Performed By: #### B MP ####[facility] [address] [place] [place] [address]Dr. Vivifrancie Simone CO2 [Moles/Vol] 26.0 mmol/L Normal 21.0-32.0 [facility] [place] [facility] Comment on above: Performed By: #### B MP ####[facility] [address] [place], [place] [address]Dr. Trevor Nichols Creatinine [Mass/Vol] 1.49 mg/dL Critically high 0.70-1.30 [facility] [place] [facility] Comment on above: Performed By: #### B MP ####[facility] [address] [place], [place] [address]Dr. Trevor Nichols EGFR-AF TAIWANESE 56 mL/min/1.73m2 Critically low >=60 [facility] [place] [facility] Comment on above: Performed By: #### B MP ####[facility] [address] [place], [place] [address]Dr. Trevor Nichols EGFR-NON AF TAIWANESE 46 mL/min/1.73m2 Critically low >=60 [facility] [place] [facility] Comment on above: Performed By: #### B MP ####[facility] [address] [place], [place] [address]Dr. Trevor Nichols Glucose [Mass/Vol] 115 mg/dL Critically high 74-106 [facility] Comment on above: Performed By: #### B MP ####[facility] [address] [place], [place] [address]Dr. Trevor Nichols Potassium [Moles/Vol] 4.0 mmol/L Normal 3.5-5.1 [facility] Comment on above: Performed By: #### B MP ####[facility] [address] [place], [place] [address]Dr. Trevor Nichols Sodium [Moles/Vol] 140 mmol/L Normal 136-145 [facility] Comment on above: Performed By: #### B MP ####[facility] [address] [place], [place] [address]Dr. Trevor Nichols Urea nitrogen [Mass/Vol] 22.0 mg/dL Critically high 7.0-18.0 [facility] Comment on above: Performed By: #### B MP ####[facility] [address] [place], [place] [address]WlJeffery Nichols Urea nitrogen/Creatinine [Mass ratio] 14.8 mg/mg Normal [facility] [place] [facility] Comment on above: Performed By: #### B MP ####[facility] [address] [place], [place] [address]Vh. Trevor Nichols NM STRESS/REST MULTIon 04-16 NM STRESS/REST MULTI Patient: JANNETH JUAREZ Exam Date: 04/16/2022 : 1945 Gender:M Ordering : DR DANIELLA EASTON M.D. Admission #: [id number] Family : DR WILL SHERWOOD . Order #: [id number] CLICK HERE TO VIEW EXAM RADIOLOGY REPORT [...] Gender:M Ordering : [employer] Admission #: [id number] Family : DR WILL SHERWOOD . Order #: [id number] CLICK HERE TO VIEW EXAM ECHOCARDIOGRAM REPORT [...] 02-10-2022 CHOL-HDL RATIO NORM SEE BELOW Normal [facility] [place] [facility] Comment on above: Result Comment: 3.3 - 4.4 LOW RISK 4.4 - 7.1 AVERAGE RISK 7.1 - 11.0 MODERATE RISK >11.0 HIGH RISK Performed By: #### L IPID #### [facility] [address] [address] [address] Trevor Nichols Cholesterol [Mass/Vol] 171 mg/dL Normal <=200 [facility] Comment on above: Performed By: #### L IPID #### [facility] [address] [address] [address] Trevor Nichols Cholesterol in HDL [Mass/Vol] 40 mg/dL Normal 40-60 [facility] Comment on above: Performed By: #### L IPID #### [facility] [address] [address] [address] Trevor Nichols Cholesterol in LDL [Mass/Vol] 114.0 mg/dL Normal [facility] Comment on above: Performed By: #### L IPID #### [facility] [address] [address] [address] Trevor Nichols Cholesterol.total/Ch olesterol in HDL [Mass ratio] 4.3 {ratio} Normal [facility] Comment on above: Performed By: #### L IPID #### [facility] [address] [address] [address] Trevor Nichols HDL NORMAL > or = 60 mg/dl - LO W CARDIOVASCULAR RISK <40 mg/dl - HIGH CARDIOVASCULAR RISK Normal [facility] Comment on above: Performed By: #### L IPID #### [facility] [address] [place] [address] Dr. Trevor Nichols LDL CALC NORMAL SEE BELOW Normal [facility] Comment on above: Result Comment: <100 mg/dl OPTIMAL 100 - 129 mg/dl NEAR OR ABOVE OPTIMAL 130 - 159 mg/dl BORDERLINE HIGH 160 - 189 mg/dl HIGH >190 mg/dl VERY HIGH Performed By: #### L IPID #### [facility] [address] [address] [address] Trevor Nichols Triglyceride [Mass/Vol] 85 mg/dL Normal <=150 [facility] Comment on above: Performed By: #### L IPID #### [facility] [address] [place] [address] Dr. Trevor Nichols VLDL CALC 17.0 mg/dL Normal [facility] Comment on above: Performed By: #### L IPID #### [facility] [address] [place] [address] Dr. Trevor Nichols BNPon 02-05-2022 Natriuretic peptide B (Bld) [Mass/Vol] 231.0 pg/mL Normal <=900.0 [facility] Comment on above: Performed By: #### H STROPN, BNP, BMP #### [facility] [address] [place] [address] Dr. Trevor Nichols CBC W MANUAL DIFFon 02-06-20 22 ANISOCYTOSIS 1+ Normal [facility] [place] [facility] Comment on above: Performed By: #### C BCMAN #### [facility] [address] [place] [address] Dr. Trevor Nichols ATYPICAL LYMPH # Normal [facility] Comment on above: Performed By: #### C BCMAN #### [facility] [address] [place] [address] Dr. Trevor Nichols ATYPICAL LYMPH % Normal [facility] Comment on above: Performed By: #### C BCMAN #### [facility] [address] [place] [address] Dr. Trevor Nichols BAND # 0.3 103/ul Normal 0.0-0.3 [facility] [place] [facility] Comment on above: Performed By: #### C BCMAN #### [facility] [address] [place] [address] Dr. Trevor Nichols BAND % 6 % Critically high 0-5 [facility] [place] [facility] Comment on above: Performed By: #### C BCMAN #### [facility] [address] [place] [address] Dr. Trevor Nichols BASOM # 0.00 103/ul Normal 0.00-0.10 [facility] [place] [facility] Comment on above: Performed By: #### C BCMAN #### [facility] [address] [place] [address] Dr. Trevor Nichols BASOM % 0.0 % Critically low 0.2-2.0 [facility] [place] [facility] Comment on above: Performed By: #### C BCNADIA #### [facility] [address] [place] [address] Dr. Trevor Nichols BLAST # Normal [facility] Comment on above: Performed By: #### C JOBY #### [facility] [address] [place] [address] Dr. Trevor Nichols BLAST % Normal [facility] Comment on above: Performed By: #### C BCMAN #### [facility] [address] [place] [address] Dr. Trevor Nichols CORRECTED WBC Normal 4.0-11.0 [facility] [place] [facility] Comment on above: Performed By: #### C BCMAN #### [facility] [address] [place] [address] Dr. Trevor Nichols EOS # 0.04 103/ul Normal 0.00-0.70 [facility] [place] [facility] Comment on above: Performed By: #### C BCMAN #### [facility] [address] [place] [address] Dr. Trevor Nichols EOS% 1.0 % Normal 0.9-7.0 [facility] [place] [facility] Comment on above: Performed By: #### C BCNADIA #### [facility] [address] [place] [address] Dr. Trevor Nichols HCT 36.4 % Critically low 42.0-54.0 [facility] [place] [facility] Comment on above: Performed By: #### C JOBY #### [facility] [address] [place] [address] Dr. Trevor Nichols HGB 11.4 g/dl Critically low 14.0-18.0 [facility] [place] [facility] Comment on above: Performed By: #### C JOBY #### [facility] [address] [place] [address] Dr. Trevor Nichols HYPOCHROMASIA SLIGHT Normal [facility] Comment on above: Performed By: #### C JOBY #### [facility] [address] [place] [address] Dr. Trevor Nichols LYMPHM # 1.19 103/ul Critically low 1.20-3.80 [facility] [place] [facility] Comment on above: Performed By: #### C JOBY #### [facility] [address] [place] [address] Dr. Trevor Nichols LYMPHM% 27.0 % Normal 20.5-60.0 [facility] [place] [facility] Comment on above: Performed By: #### C JOBY #### [facility] [address] [place] [address] Dr. Trevor Nichols MCH 32.5 pg Normal 25.9-34.0 [facility] [place] [facility] Comment on above: Performed By: #### C JOBY #### [facility] [address] [place] [address] Dr. Trevor Nichols MCHC 31.3 g/dl Normal 29.9-35.2 [facility] Comment on above: Performed By: #### C BCNADIA #### [facility] [address] [place] [address] Dr. Trevor Nichols MCV 103.7 fL Critically high 80.0-94.0 [facility] Comment on above: Performed By: #### C BCNADIA #### [facility] [address] [place] [address] Dr. Trevor Nichols METAMYELOCYTE # Normal [facility] [place] [facility] Comment on above: Performed By: #### C BCNADIA #### [facility] [address] [place] [address] Dr. Trevor Nichols METAMYELOCYTE % Normal [facility] [place] [facility] Comment on above: Performed By: #### C JOBY #### [facility] [address] [place] [address] Dr. Trevor Nichols MONOM# 1.28 103/ul Critically high 0.30-0.80 [facility] [place] [facility] Comment on above: Performed By: #### C FAVIOMAN #### [facility] [address] [place] [address] Dr. Trevor Nichols MONOM% 29.0 % Critically high 1.7-12.0 [facility] [place] [facility] Comment on above: Performed By: #### C JOBY #### [facility] [address] [place] [address] Dr. Trevor Nichols MPV 10.5 fL Normal 9.5-13.5 [facility] Comment on above: Performed By: #### C JOBY #### [facility] [address] [place] [address] Dr. Trevor Nichols MYELOCYTE # Normal [facility] Comment on above: Performed By: #### C JOBY #### [facility] [address] [place] [address] Dr. Trevor Nichols MYELOCYTE % Normal [facility] Comment on above: Performed By: #### C JOBY #### [facility] [address] [place] [address] Dr. Trevor Nichols NRBC Normal [facility] Comment on above: Performed By: #### C JOBY #### [facility] [address] [place] [address] Dr. Trevor Nichols PLT 161 103/ul Normal 150-450 [facility] Comment on above: Performed By: #### C JOBY #### [facility] [address] [place] [address] Dr. Trevor Nichols RBC 3.51 106/ul Critically low 4.70-6.10 [facility] Comment on above: Performed By: #### C JOBY #### [facility] [address] [place] [address] Dr. Trevor Nichols RDW 16.0 % Critically high 11.0-15.0 [facility] Comment on above: Performed By: #### C JOBY #### [facility] [address] [place] [address] Dr. Trevor Nichols SEG # 1.63 103/ul Normal 1.40-6.50 [facility] Comment on above: Performed By: #### C JOBY #### [facility] [address] [place] [address] Dr. Trevor Nichols SEG % 37.0 % Critically low 43.0-75.0 [facility] Comment on above: Performed By: #### C JOBY #### [facility] [address] [place] [address] Dr. Trevor Nichols WBC 4.4 103/ul Normal 4.0-11.0 [facility] Comment on above: Performed By: #### C JOBY #### [facility] [address] [place] [address] Dr. Trevor Nichols PROF 14(COMP METB)on 022 Albumin [Mass/Vol] 3.4 g/dL Normal 3.4-5.0 [facility] Comment on above: Performed By: #### H STROPN, BNP, BMP #### [facility] [address] [place] [address] Dr. Trevor Nichols Albumin/Globulin [Mass ratio] 0.9 {ratio} Normal [facility] Comment on above: Performed By: #### H STROPN, BNP, BMP #### [facility] [address] [place] [address] Dr. Trevor Nichols ALP [Catalytic activity/Vol] 99 U/L Normal 46-116 [facility] Comment on above: Performed By: #### H STROPN, BNP, BMP #### [facility] [address] [place] [address] Dr. Trevor Nichols ALT [Catalytic activity/Vol] 18 U/L Normal 16-63 [facility] Comment on above: Performed By: #### H STROPN, BNP, BMP #### [facility] [address] [place] [address] Dr. Trevor Nichols Anion gap [Moles/Vol] 13.5 mmol/L Normal [facility] Comment on above: Performed By: #### H STROPN, BNP, BMP #### [facility] [address] [address] [address] Trevor Nichols AST [Catalytic activity/Vol] 10 U/L Critically low 15-37 [facility] Comment on above: Performed By: #### H STROPN, BNP, BMP #### [facility] [address] [place] [address] Dr. Trevor Nichols Bilirubin [Mass/Vol] 0.5 mg/dL Normal 0.2-1.0 [facility] Comment on above: Performed By: #### H STROPN, BNP, BMP #### [facility] [address] [place] [address] Dr. Trevor Nichols Calcium [Mass/Vol] 8.8 mg/dL Normal 8.5-10.1 [facility] Comment on above: Performed By: #### H STROPN, BNP, BMP #### [facility] [address] [place] [address] Dr. Trevor Nichols Chloride [Moles/Vol] 106 mmol/L Normal 98-107 [facility] Comment on above: Performed By: #### H STROPN, BNP, BMP #### [facility] [address] [place] [address] Dr. Trevor Nichols CO2 [Moles/Vol] 24.3 mmol/L Normal 21.0-32.0 [facility] Comment on above: Performed By: #### H STROPN, BNP, BMP #### [facility] [address] [place] [address] Dr. Trevor Nichols Creatinine [Mass/Vol] 1.35 mg/dL Critically high 0.70-1.30 [facility] Comment on above: Performed By: #### H STROPN, BNP, BMP #### [facility] [address] [place] [address] Dr. Trevor Nichols EGFR-AF TAIWANESE >60 Normal >=60 [facility] Comment on above: Performed By: #### H STROPN, BNP, BMP #### [facility] [address] [address] [address] Trevor Nichols EGFR-NON AF TAIWANESE 52 mL/min/1.73m2 Critically low >=60 [facility] Comment on above: Performed By: #### H STROPN, BNP, BMP #### [facility] [address] [address] [address] Trevor Nichols Globulin (S) [Mass/Vol] 3.8 g/dL Normal [facility] Comment on above: Performed By: #### H STROPN, BNP, BMP #### [facility] [address] [address] [address] Trevor Nichols Glucose [Mass/Vol] 103 mg/dL Normal 74-106 [facility] [place] [facility] Comment on above: Performed By: #### H STROPN, BNP, BMP #### [facility] [address] [address] [address] Trevor Nichols Potassium [Moles/Vol] 3.8 mmol/L Normal 3.5-5.1 [facility] [place] [facility] Comment on above: Performed By: #### H STROPN, BNP, BMP #### [facility] [address] [address] [address] Trevor Nichols Protein [Mass/Vol] 7.2 g/dL Normal 6.4-8.2 [facility] [place] [facility] Comment on above: Performed By: #### H STROPN, BNP, BMP #### [facility] [address] [address] [address] Trevor Nichols Sodium [Moles/Vol] 140 mmol/L Normal 136-145 [facility] Comment on above: Performed By: #### H STROPN, BNP, BMP #### [facility] [address] [address] [address] Trevor Nichols Urea nitrogen [Mass/Vol] 22.0 mg/dL Critically high 7.0-18.0 [facility] [place] [facility] Comment on above: Performed By: #### H STROPN, BNP, BMP #### [facility] [address] [address] [address] Trevor Nichols Urea nitrogen/Creatinine [Mass ratio] 16.3 mg/mg Normal [facility] [place] [facility] Comment on above: Performed By: #### H STROPN, BNP, BMP #### [facility] [address] [place], [place] [address] Dr. Trevor Nichols TSHon 02-05-2022 TSH 3.360 uIU/mL Normal 0.358-3.740 [facility] [place] [facility] Comment on above: Performed By: #### H STROPN, BNP, BMP #### [facility] [address] [place], [place] [address] Dr. Trevor Nichols XR CHEST 2 Von [...] SHAY BERNSTEIN Date: 2021-09-25 07:30 Normal [facility] PROTEIN ELECTROPHERESISon Albumin [Mass/Vol] 3.2 g/dL Normal 2.9-4.4 [facility] Comment on above: Performed By: #### P RTELEC ####[facility] [address] [place], [place] [address]Dr. Trevor Nichols Albumin/Globulin [Mass ratio] 1.1 {ratio} Normal 0.7-1.7 [facility] Comment on above: Performed By: #### P RTELEC ####[facility] [address] [address]Dr. Trevor Nichols Vryii-1-Jfrzgupl 0.3 g/dL Normal 0.0-0.4 [facility] Comment on above: Performed By: #### P RTELEC ####[facility] [address] [address]Dr. Trevor Nichols Pjokw-8-Vlhzlkxw 0.8 g/dL Normal 0.4-1.0 [facility] Comment on above: Performed By: #### P RTELEC ####[facility] [address] [address]Dr. Trevor Nichols Beta Globulin 1.0 g/dL Normal 0.7-1.3 [facility] Comment on above: Performed By: #### P RTELEC ####[facility] [address] [id number]. Trevor Nichols Gamma Globulin 0.8 g/dL Normal 0.4-1.8 [facility] Comment on above: Performed By: #### P RTELEC ####[facility] [address] [id number] Nichols Globulin (S) [Mass/Vol] 2.9 g/dL Normal 2.2-3.9 [facility] Comment on above: Performed By: #### P RTELEC ####[facility] [address] [address]Dr. Trevor Nichols M-Jorge 0.1 g/dL Critically high Not Observed [facility] Comment on above: Performed By: #### P RTELEC ####[facility] [address] [address]DrJeffery Nichols PDF . Normal [facility] Comment on above: Performed By: #### P RTELEC ####[facility] [address] [address]DrJeffery Nichols Please note: Comment Normal [facility] [place] [facility] Comment on above: Result Comment: Prot ein electrophoresis scan will follow via computer, mail, or anesthesiologist and critical care delivery. Performed By: #### P RTELEC ####[facility] [address] [place], [place] [address]DrJeffery Nichols Protein [Mass/Vol] 6.1 g/dL Normal 6.0-8.5 [facility] Comment on above: Performed By: #### P RTELEC ####[facility] [address] [address]DrJeffery Nichols PROF CHEM 8 (BAS METB)on Anion gap [Moles/Vol] 16.3 mmol/L Normal [facility] [place] [facility] Comment on above: Performed By: #### H STROPN, BNP, BMP #### [facility] [address] [address] [address] Trevor Nichols Calcium [Mass/Vol] 9.1 mg/dL Normal 8.4-10.2 [facility] Comment on above: Performed By: #### H STROPN, BNP, BMP #### [facility] [address] [address] [address] Trevor Nichols Chloride [Moles/Vol] 104 mmol/L Normal 98-107 [facility] Comment on above: Performed By: #### H STROPN, BNP, BMP #### [facility] [address] [place] [address] Dr. Trevor Nichols CO2 [Moles/Vol] 23.3 mmol/L Normal 22.0-30.0 [facility] Comment on above: Performed By: #### H STROPN, BNP, BMP #### [facility] [address] [place] [address] Dr. Trevor Nichols Creatinine [Mass/Vol] 1.28 mg/dL Critically high 0.66-1.25 [facility] [place] [facility] Comment on above: Performed By: #### H STROPN, BNP, BMP #### [facility] [address] [place] [address] Dr. Trevor Nichols EGFR-AF TAIWANESE >60 Normal >=60 [facility] Comment on above: Performed By: #### H STROPN, BNP, BMP #### [facility] [address] [place] [address] Dr. Trevor Nichols EGFR-NON AF TAIWANESE 55 mL/min/1.73m2 Critically low >=60 [facility] Comment on above: Performed By: #### H STROPN, BNP, BMP #### [facility] [address] [place] [address] Dr. Trevor Nichols Glucose [Mass/Vol] 98 mg/dL Normal 74-106 [facility] Comment on above: Performed By: #### H STROPN, BNP, BMP #### [facility] [address] [place] [address] Dr. Trevor Nichols Potassium [Moles/Vol] 3.6 mmol/L Normal 3.4-5.0 [facility] [place] [facility] Comment on above: Performed By: #### H STROPN, BNP, BMP #### [facility] [address] [place] [address] Dr. Trevor Nichols Sodium [Moles/Vol] 140 mmol/L Normal 137-145 [facility] [place] [facility] Comment on above: Performed By: #### H STROPN, BNP, BMP #### [facility] [address] [address] [address] Trevor Nichols Urea nitrogen [Mass/Vol] 25.0 mg/dL Critically high 9.0-20.0 [facility] [place] [facility] Comment on above: Performed By: #### H STROPN, BNP, BMP #### [facility] [address] [place], [place] [address] Dr. Trevor Nichols Urea nitrogen/Creatinine [Mass ratio] 19.5 mg/mg Normal [facility] [place] [facility] Comment on above: Performed By: #### H STROPN, BNP, BMP #### [facility] [address] [address] [address] Trevor Nichols XR MODIFIED BARIUM SWALLOWon [...] BMP #### [facility] [address] [address] [address] Trevor Nichols SPUTUM GRAM STAINon 07-30-20 COMMENTS Normal [facility] Comment on above: Performed By: #### S PUTGS ####[facility] [address] [address]Dr. Trevor Nichols DIPHTHEROIDS Normal [facility] [place] [facility] Comment on above: Performed By: #### S PUTGS ####[facility] [address] [place], [place] [address]Dr. Trevor Nichols EPITHELIALS >25 Normal [facility] [place] [facility] Comment on above: Performed By: #### S PUTGS ####[facility] [address] [address]Dr. Trevor Nichols FUNGAL ELEMENTS Normal [facility] [place] [facility] Comment on above: Performed By: #### S PUTGS ####[facility] [address] [place], [place] [address]Dr. Trevor Nichols GRAM NEG BACILLI RARE Normal [facility] [place] [facility] Comment on above: Performed By: #### S PUTGS ####[facility] [address] [address]Dr. Trevor Nichols GRAM NEG DIPPLOCOCCI Normal [facility] Comment on above: Performed By: #### S PUTGS ####[facility] [address] [address]Dr. Trevor Nichols GRAM POS BACILLI MANY Normal [facility] Comment on above: Performed By: #### S PUTGS ####[facility] [address] [address]Dr. Trevor Nichols GRAM POSITIVE COCCI MANY Normal [facility] Comment on above: Performed By: #### S PUTGS ####[facility] [address] [place], [place] [address]Dr. Trevor Nichols WBC (Bld) [#/Vol] 10*3/uL Normal [facility] Comment on above: Performed By: #### S FLAVIO ####[facility] [address] [place], [place] [address]WgJeffery Nichols ECHOCARDIO M/2D COMPLETEon 1 09-24-2020 ECHOCARDIO M/2D COMPLETE Patient: CHIKI JUAREZ Exam Date: 07/24/2021 : 1945 Gender:M Ordering : [employer] Admission #: [id number] Family : DR WILL SHERWOOD . Order #: [id number] CLICK HERE TO VIEW EXAM ECHOCARDIOGRAM REPORT [...] [facility] W MANUAL DIFFon 06-07-20 21 ATYPICAL LYMPH # Normal [facility] [place] [facility] Comment on above: Performed By: #### H STROPN, BNP, BMP #### [facility] [address] [place] [address] Dr. Trevor Nichols ATYPICAL LYMPH % Normal [facility] [place] [facility] Comment on above: Performed By: #### H STROPN, BNP, BMP #### [facility] [address] [address] [address] Trevor Nichols BAND # 0.1 103/ul Normal 0.0-0.3 [facility] [place] [facility] Comment on above: Performed By: #### H STROPN, BNP, BMP #### [facility] [address] [address] [address] Trevor Nichols BAND % 2 % Normal 0-5 [facility] [place] [facility] Comment on above: Performed By: #### H STROPN, BNP, BMP #### [facility] [address] [address] [address] Trevor Nichols BASOM # 0.00 103/ul Normal 0.00-0.10 [facility] [place] [facility] Comment on above: Performed By: #### H STROPN, BNP, BMP #### [facility] [address] [address] [address] Trevor Nichols BASOM % 0.0 % Critically low 0.2-2.0 [facility] [place] [facility] Comment on above: Performed By: #### H STROPN, BNP, BMP #### [facility] [address] [address] [address] Trevor Nichols BLAST # Normal [facility] [place] [facility] Comment on above: Performed By: #### H STROPN, BNP, BMP #### [facility] [address] [address] [address] Trevor Nichols BLAST % Normal [facility] [place] [facility] Comment on above: Performed By: #### H STROPN, BNP, BMP #### [facility] [address] [address] [address] Trevor Nichols CORRECTED WBC Normal 4.0-11.0 [facility] [place] [facility] Comment on above: Performed By: #### H STROPN, BNP, BMP #### [facility] [address] [address] [address] Trevor Nichols EOS # 0.06 103/ul Normal 0.00-0.70 [facility] [place] [facility] Comment on above: Performed By: #### H STROPN, BNP, BMP #### [facility] [address] [address] [address] Trevor Nichols EOS% 1.0 % Normal 0.9-7.0 [facility] [place] [facility] Comment on above: Performed By: #### H STROPN, BNP, BMP #### [facility] [address] [address] [address] Trevor Nichols HCT 31.6 % Critically low 42.0-54.0 [facility] [place] [facility] Comment on above: Performed By: #### H STROPN, BNP, BMP #### [facility] [address] [address] [address] Trevor Nichols HGB 9.7 g/dl Critically low 14.0-18.0 [facility] Comment on above: Performed By: #### H STROPN, BNP, BMP #### [facility] [address] [address] [address] Trevor Nichols LYMPHM # 0.46 103/ul Critically low 1.20-3.80 [facility] Comment on above: Performed By: #### H STROPN, BNP, BMP #### [facility] [address] [address] [address] Trevor Nichols LYMPHM% 8.0 % Critically low 20.5-60.0 [facility] Comment on above: Performed By: #### H STROPN, BNP, BMP #### [facility] [address] [address] [address] Trevor Nichols MACROCYTOSIS 1+ Normal [facility] Comment on above: Performed By: #### H STROPN, BNP, BMP #### [facility] [address] [address] [address] Trevor Nichols MCH 33.6 pg Normal 25.9-34.0 [facility] [place] [facility] Comment on above: Performed By: #### H STROPN, BNP, BMP #### [facility] [address] [address] [address] Trevor Nichols MCHC 30.7 g/dl Normal 29.9-35.2 [facility] [place] [facility] Comment on above: Performed By: #### H STROPN, BNP, BMP #### [facility] [address] [place] [address] Dr. Trevor Nichols MCV 109.3 fL Critically high 80.0-94.0 [facility] [place] [facility] Comment on above: Performed By: #### H STROPN, BNP, BMP #### [facility] [address] [place] [address] Dr. Trevor Nichols METAMYELOCYTE # 0.1 103/ul Normal [facility] Comment on above: Performed By: #### H STROPN, BNP, BMP #### [facility] [address] [place] [address] Dr. Trevor Nichols METAMYELOCYTE % 2 % Normal [facility] Comment on above: Performed By: #### H STROPN, BNP, BMP #### [facility] [address] [address] [address] Trevor Nichols MONOM# 2.22 103/ul Critically high 0.30-0.80 [facility] Comment on above: Performed By: #### H STROPN, BNP, BMP #### [facility] [address] [address] [address] Trevor Nichols MONOM% 39.0 % Critically high 1.7-12.0 [facility] [place] [facility] Comment on above: Performed By: #### H STROPN, BNP, BMP #### [facility] [address] [address] [address] Trevor Nichols MPV 9.4 fL Critically low 9.5-13.5 [facility] [place] [facility] Comment on above: Performed By: #### H STROPN, BNP, BMP #### [facility] [address] [address] [address] Trevor Nichols MYELOCYTE # 0.3 103/ul Normal [facility] [place] [facility] Comment on above: Performed By: #### H STROPN, BNP, BMP #### [facility] [address] [address] [address] Trevro Nichols MYELOCYTE % 6 % Normal [facility] [place] [facility] Comment on above: Performed By: #### H STROPN, BNP, BMP #### [facility] [address] [address] [address] Trevor Nichols NRBC Normal [facility] [place] [facility] Comment on above: Performed By: #### H STROPN, BNP, BMP #### [facility] [address] [address] [address] Trevor Nichols PLT 202 103/ul Normal 150-450 [facility] [place] [facility] Comment on above: Performed By: #### H STROPN, BNP, BMP #### [facility] [address] [address] [address] Trevor Nichols RBC 2.89 106/ul Critically low 4.70-6.10 [facility] [place] [facility] Comment on above: Performed By: #### H STROPN, BNP, BMP #### [facility] [address] [address] [address] Tervor Nichols RDW 15.4 % Critically high 11.0-15.0 [facility] [place] [facility] Comment on above: Performed By: #### H STROPN, BNP, BMP #### [facility] [address] [address] [address] Trevor Nichols SEG # 2.39 103/ul Normal 1.40-6.50 [facility] [place] [facility] Comment on above: Performed By: #### H STROPN, BNP, BMP #### [facility] [address] [address] [address] Trevor Nichols SEG % 42.0 % Critically low 43.0-75.0 [facility] [place] [facility] Comment on above: Performed By: #### H STROPN, BNP, BMP #### [facility] [address] [address] [address] Trevor Nichols WBC 5.7 103/ul Normal 4.0-11.0 [facility] [place] [facility] Comment on above: Performed By: #### H STROPN, BNP, BMP #### [facility] [address] [address] [address] Trevor Nichols PROF CHEM 8 (BAS METB)on Anion gap [Moles/Vol] 13.1 mmol/L Normal [facility] [place] [facility] Comment on above: Performed By: #### B MP ####[facility] [address] [address]Dr. Trevor Nichols Calcium [Mass/Vol] 8.8 mg/dL Normal 8.4-10.2 [facility] Comment on above: Performed By: #### B MP ####[facility] [address] [address]Dr. Trevor Nichols Chloride [Moles/Vol] 104 mmol/L Normal 98-107 [facility] Comment on above: Performed By: #### B MP ####[facility] [address] [address]Dr. Trevor Nichols CO2 [Moles/Vol] 24.1 mmol/L Normal 22.0-30.0 [facility] Comment on above: Performed By: #### B MP ####[facility] [address] [address]Dr. Trevor Nichols Creatinine [Mass/Vol] 1.26 mg/dL Critically high 0.66-1.25 [facility] Comment on above: Performed By: #### B MP ####[facility] [address] [address]Dr. Trevor Nichols EGFR-AF TAIWANESE >60 Normal >=60 [facility] Comment on above: Performed By: #### B MP ####[facility] [address] [address]Dr. Trevor Nichols EGFR-NON AF TAIWANESE 56 mL/min/1.73m2 Critically low >=60 [facility] Comment on above: Performed By: #### B MP ####[facility] [address] [address]Dr. Trevor Nichols Glucose [Mass/Vol] 98 mg/dL Normal 74-106 [facility] Comment on above: Performed By: #### B MP ####[facility] [address] [place], [place] [address]Dr. Trevor Nichols Potassium [Moles/Vol] 4.2 mmol/L Normal 3.4-5.0 [facility] Comment on above: Performed By: #### B MP ####[facility] [address] [place], [place] [address]Dr. Trevor Nichols Sodium [Moles/Vol] 137 mmol/L Normal 137-145 [facility] Comment on above: Performed By: #### B MP ####[facility] [address] [place], [place] [address]Dr. Trevor Nichols Urea nitrogen [Mass/Vol] 20.0 mg/dL Normal 9.0-20.0 [facility] Comment on above: Performed By: #### B MP ####[facility] [address] [place], [place] [address]Dr. Trevor Nichols Urea nitrogen/Creatinine [Mass ratio] 15.9 mg/mg Normal [facility] Comment on above: Performed By: #### B MP ####[facility] [address] [place], [place] [address]Dr. Trevor Nichols CBC AUTO DIFFon 05-16-2021 BASO # 0.0 103/ul Normal 0.0-0.1 [facility] Comment on above: Performed By: #### C BC ####[facility] [address] [place], [place] [address]Dr. Trevor Nichols Basophils/100 WBC (Bld) 0.2 % Normal 0.2-2.0 [facility] Comment on above: Performed By: #### C BC ####[facility] [address] [place], [place] [address]Dr. Trevor Nichols EO # 0.0 103/ul Normal 0.0-0.7 [facility] Comment on above: Performed By: #### C BC ####[facility] [address] [address]Dr. Trevor Nichols Eosinophils/100 WBC (Bld) 0.0 % Critically low 0.9-7.0 [facility] Comment on above: Performed By: #### C BC ####[facility] [address] [place], [place] [address]Dr. Trevor Nichols Erythrocyte distribution width (RBC) [Ratio] 15.1 % Critically high 11.0-15.0 [facility] Comment on above: Performed By: #### C BC ####[facility] [address] [place], [place] [address]Dr. Trevor Nichols Hematocrit (Bld) [Volume fraction] 32.9 % Critically low 42.0-54.0 [facility] Comment on above: Performed By: #### C BC ####[facility] [address] [place], [place] [address]Dr. Trevor Nichols Hemoglobin (Bld) [Mass/Vol] 10.5 g/dL Critically low 14.0-18.0 [facility] Comment on above: Performed By: #### C BC ####[facility] [address] [place], [place] [address]Dr. Trevor Nichols IG # 0.29 10e3/ul Critically high 0.00-0.03 [facility] Comment on above: Performed By: #### C BC ####[facility] [address] [place], [place] [address]Dr. Trevor Nichols IG % 6.5 % Critically high 0.0-0.5 [facility] Comment on above: Performed By: #### C BC ####[facility] [address] [place], [place] [address]DrJeffery Nichols LYMPH # 0.2 103/ul Critically low 1.2-3.8 [facility] Comment on above: Performed By: #### C BC ####[facility] [address] [place], [place] [address]DrJeffery Nichols Lymphocytes/100 WBC (Bld) 5.4 % Critically low 20.5-60.0 [facility] [place] [facility] Comment on above: Performed By: #### C BC ####[facility] [address] [address]DrJeffery Nichols MANUAL DIFF REQ NO Normal [facility] Comment on above: Performed By: #### C BC ####[facility] [address] [place] [address]DrJeffery Nichols MCH (RBC) [Entitic mass] 33.8 pg Normal 25.9-34.0 [facility] Comment on above: Performed By: #### C BC ####[facility] [address] [place], [place] [address]DrJeffery Nichols MCHC (RBC) [Mass/Vol] 31.9 g/dL Normal 29.9-35.2 [facility] Comment on above: Performed By: #### C BC ####[facility] [address] [place], [place] [address]DrJeffery Nichols MCV (RBC) [Entitic vol] 105.8 fL Critically high 80.0-94.0 [facility] Comment on above: Performed By: #### C BC ####[facility] [address] [place], [place] [address]DrJeffery Nichols MONO # 0.3 103/ul Normal 0.3-0.8 [facility] Comment on above: Performed By: #### C BC ####[facility] [address] [place], [place] [address]DrJeffery Nichols Monocytes/100 WBC (Bld) 7.6 % Normal 1.7-12.0 [facility] Comment on above: Performed By: #### C BC ####[facility] [address] [place], [place] [address]DrJeffery Nichols NEUT # 3.6 103/ul Normal 1.4-6.5 [facility] Comment on above: Performed By: #### C BC ####[facility] [address] [place], [place] [address]DrJeffery Nichols Neutrophils/100 WBC (Bld) 80.3 % Critically high 43.0-75.0 [facility] Comment on above: Performed By: #### C BC ####[facility] [address] [place], [place] [address]My. Trevor Nichols Platelet mean volume (Bld) [Entitic vol] 10.2 fL Normal 9.5-13.5 [facility] Comment on above: Performed By: #### C BC ####[facility] [address] [place], [place] [address]KcJeffery Nichols PLT 192 103/ul Normal 150-450 [facility] Comment on above: Performed By: #### C BC ####[facility] [address] [place], [place] [address]SrJeffery Nichols RBC 3.11 106/ul Critically low 4.70-6.10 [facility] Comment on above: Performed By: #### C BC ####[facility] [address] [place], [place] [address]FkJeffery Nichols WBC 4.5 103/ul Normal 4.0-11.0 [facility] Comment on above: Performed By: #### C BC ####[facility] [address] [place], [place] [address]Ue[address] CT STROKE HEAD WOon 05-16-20 CT [...] by: SHAY BERNSTEIN Date: 2021-05-16 16:53 Normal [facility] [place] [facility] IRON AND TIBCon 05-16-2021 % SATURATION 16.2 % Normal [facility] Comment on above: Performed By: #### F ETIBC, B12FOL #### [facility] [address] [place] [address] Dr. Trevor Nichols Iron [Mass/Vol] 32.0 ug/dL Critically low 49.0-181.0 [facility] [place] [facility] Comment on above: Performed By: #### F ETIBC, B12FOL #### [facility] [address] [place] [address] Dr. Trevor Nichols TIBC DIRECT 198.0 ug/dL Critically low 261.0-497.0 [facility] Comment on above: Performed By: #### F ETIBC, B12FOL #### [facility] [address] [place] [address] Dr. Trevor Nichols PROF CHEM 8 (BAS METB)on Anion gap [Moles/Vol] 14.9 mmol/L Normal [facility] [place] [facility] Comment on above: Performed By: #### B MP #### [facility] [address] [place] [address] Dr. Trevor Nichols Calcium [Mass/Vol] 9.2 mg/dL Normal 8.4-10.2 [facility] Comment on above: Performed By: #### B MP #### [facility] [address] [place] [address] Dr. Trevor Nichols Chloride [Moles/Vol] 105 mmol/L Normal 98-107 [facility] Comment on above: Performed By: #### B MP #### [facility] [address] [place] [address] Dr. Trevor Nichols CO2 [Moles/Vol] 21.6 mmol/L Critically low 22.0-30.0 [facility] Comment on above: Performed By: #### B MP #### [facility] [address] [place] [address] Dr. Trevor Nichols Creatinine [Mass/Vol] 1.36 mg/dL Critically high 0.66-1.25 [facility] [place] [facility] Comment on above: Performed By: #### B MP #### [facility] [address] [place] [address] Dr. Trevor Nichols EGFR-AF TAIWANESE >60 Normal >=60 [facility] Comment on above: Performed By: #### B MP #### [facility] [address] [address] [address] Trevor Nichols EGFR-NON AF TAIWANESE 51 mL/min/1.73m2 Critically low >=60 [facility] Comment on above: Performed By: #### B MP #### [facility] [address] [address] [address] Trevor Nichols Glucose [Mass/Vol] 206 mg/dL Critically high 74-106 [facility] Comment on above: Performed By: #### B MP #### [facility] [address] [place] [address] Dr. Trevor Nichols Potassium [Moles/Vol] 4.5 mmol/L Normal 3.4-5.0 [facility] Comment on above: Performed By: #### B MP #### [facility] [address] [address] [address] Trevor Nichols Sodium [Moles/Vol] 137 mmol/L Normal 137-145 [facility] Comment on above: Performed By: #### B MP #### [facility] [address] [address] [address] Trevor Nichols Urea nitrogen [Mass/Vol] 26.0 mg/dL Critically high 9.0-20.0 [facility] Comment on above: Performed By: #### B MP #### [facility] [address] [address] [address] Trevor Nichols Urea nitrogen/Creatinine [Mass ratio] 19.1 mg/mg Normal [facility] Comment on above: Performed By: #### B MP #### [facility] [address] [address] [address] Trevor Nichols VIT B12 AND FOLATEon 021 Cobalamin (Vitamin B12) [Mass/Vol] pg/mL Critically high 239.0-931.0 [facility] Comment on above: Performed By: #### F ETIBC, B12FOL #### [facility] [address] [place] [address] Dr. Trevor Nichols FOLATE 15.40 ng/mL Normal >=2.76 [facility] Comment on above: Performed By: #### F ETIBC, B12FOL #### [facility] [address] [place] [address] Dr. Trevor Nichols BNPon 05-15-2021 Natriuretic peptide B (Bld) [Mass/Vol] 379.0 pg/mL Normal <=900.0 [facility] Comment on above: Performed By: #### H STROPN, BNP, BMP #### [facility] [address] [place] [address] Dr. Trevor Nichols CBC W MANUAL DIFFon 05-15-20 ATYPICAL LYMPH # Normal [facility] Comment on above: Performed By: #### H STROPN, BNP, BMP #### [facility] [address] [place] [address] Dr. Trevor Nichols ATYPICAL LYMPH % Normal [facility] Comment on above: Performed By: #### H STROPN, BNP, BMP #### [facility] [address] [place] [address] Dr. Trevor Nichols BAND # 0.0 103/ul Normal 0.0-0.3 [facility] Comment on above: Performed By: #### H STROPN, BNP, BMP #### [facility] [address] [place] [address] Dr. Trevor Nichols BAND % 1 % Normal 0-5 [facility] Comment on above: Performed By: #### H STROPN, BNP, BMP #### [facility] [address] [place] [address] Dr. Trevor Nichols BASOM # 0.00 103/ul Normal 0.00-0.10 [facility] Comment on above: Performed By: #### H STROPN, BNP, BMP #### [facility] [address] [place] [address] Dr. Trevor Nichols BASOM % 0.0 % Critically low 0.2-2.0 [facility] Comment on above: Performed By: #### H STROPN, BNP, BMP #### [facility] [address] [address] [address] Trevor Nichols BLAST # Normal [facility] Comment on above: Performed By: #### H STROPN, BNP, BMP #### [facility] [address] [address] [address] Trevor Nichols BLAST % Normal [facility] Comment on above: Performed By: #### H STROPN, BNP, BMP #### [facility] [address] [address] [address] Trevor Nichols BRENDA CELLS SLIGHT Normal [facility] Comment on above: Performed By: #### H STROPN, BNP, BMP #### [facility] [address] [address] [address] Trevor Nichols CORRECTED WBC Normal 4.0-11.0 [facility] Comment on above: Performed By: #### H STROPN, BNP, BMP #### [facility] [address] [place] [address] Dr. Trevor Nichols EOS # 0.05 103/ul Normal 0.00-0.70 [facility] Comment on above: Performed By: #### H STROPN, BNP, BMP #### [facility] [address] [place] [address] Dr. Trevor Nichols EOS% 1.0 % Normal 0.9-7.0 [facility] Comment on above: Performed By: #### H STROPN, BNP, BMP #### [facility] [address] [place] [address] Dr. Trevor Nichols HCT 32.5 % Critically low 42.0-54.0 [facility] Comment on above: Performed By: #### H STROPN, BNP, BMP #### [facility] [address] [place] [address] Dr. Trevor Nichols HGB 10.5 g/dl Critically low 14.0-18.0 [facility] Comment on above: Performed By: #### H STROPN, BNP, BMP #### [facility] [address] [place] [address] Dr. Trevor Nichols HYPOCHROMASIA 2+ Normal [facility] Comment on above: Performed By: #### H STROPN, BNP, BMP #### [facility] [address] [address] [address] Trevor Nichols LYMPHM # 1.03 103/ul Critically low 1.20-3.80 [facility] Comment on above: Performed By: #### H STROPN, BNP, BMP #### [facility] [address] [address] [address] Trevor Nichols LYMPHM% 22.0 % Normal 20.5-60.0 [facility] Comment on above: Performed By: #### H STROPN, BNP, BMP #### [facility] [address] [address] [address] Trevor Nichols MACROCYTOSIS 2+ Normal [facility] Comment on above: Performed By: #### H STROPN, BNP, BMP #### [facility] [address] [address] [address] Trevor Nichols MCH 34.5 pg Critically high 25.9-34.0 [facility] Comment on above: Performed By: #### H STROPN, BNP, BMP #### [facility] [address] [address] [address] Trevor Nichols MCHC 32.3 g/dl Normal 29.9-35.2 [facility] Comment on above: Performed By: #### H STROPN, BNP, BMP #### [facility] [address] [address] [address] Trevor Nichols MCV 106.9 fL Critically high 80.0-94.0 [facility] Comment on above: Performed By: #### H STROPN, BNP, BMP #### [facility] [address] [address] [address] Trevor Nichols METAMYELOCYTE # Normal [facility] Comment on above: Performed By: #### H STROPN, BNP, BMP #### [facility] [address] [address] [address] Trevor Nichols METAMYELOCYTE % Normal [facility] Comment on above: Performed By: #### H STROPN, BNP, BMP #### [facility] [address] [address] [address] Trevor Nichols MONOM# 1.74 103/ul Critically high 0.30-0.80 [facility] Comment on above: Performed By: #### H STROPN, BNP, BMP #### [facility] [address] [place] [address] Dr. Trevor Nichols MONOM% 37.0 % Critically high 1.7-12.0 [facility] Comment on above: Performed By: #### H STROPN, BNP, BMP #### [facility] [address] [place] [address] Dr. Trevor Nichols MPV 10.8 fL Normal 9.5-13.5 [facility] Comment on above: Performed By: #### H STROPN, BNP, BMP #### [facility] [address] [place] [address] Dr. Trevor Nichols MYELOCYTE # Normal [facility] Comment on above: Performed By: #### H STROPN, BNP, BMP #### [facility] [address] [place] [address] Dr. Trevor Nichols MYELOCYTE % Normal [facility] Comment on above: Performed By: #### H STROPN, BNP, BMP #### [facility] [address] [place] [address] Dr. Trevor Nichols NRBC Normal [facility] Comment on above: Performed By: #### H STROPN, BNP, BMP #### [facility] [address] [place] [address] Dr. Trevor Nichols PLT 222 103/ul Normal 150-450 [facility] Comment on above: Performed By: #### H STROPN, BNP, BMP #### [facility] [address] [place] [address] Dr. Trevor Nichols POIKILOCYTOSIS 2+ Normal [facility] Comment on above: Performed By: #### H STROPN, BNP, BMP #### [facility] [address] [place] [address] Dr. Trevor Nichols RBC 3.04 106/ul Critically low 4.70-6.10 [facility] Comment on above: Performed By: #### H STROPN, BNP, BMP #### [facility] [address] [address] [address] Trevor Nichols RDW 15.6 % Critically high 11.0-15.0 [facility] Comment on above: Performed By: #### H STROPN, BNP, BMP #### [facility] [address] [address] [address] Trevor Nichols SEG # 1.83 103/ul Normal 1.40-6.50 [facility] Comment on above: Performed By: #### H STROPN, BNP, BMP #### [facility] [address] [place] [address] Dr. Trevor Nichols SEG % 39.0 % Critically low 43.0-75.0 [facility] Comment on above: Performed By: #### H STROPN, BNP, BMP #### [facility] [address] [place] [address] Dr. Trevor Nichols TARGET CELLS 1+ Normal [facility] Comment on above: Performed By: #### H STROPN, BNP, BMP #### [facility] [address] [place] [address] Dr. Trevor Nichols TEAR DROP CELLS SLIGHT Normal [facility] Comment on above: Performed By: #### H STROPN, BNP, BMP #### [facility] [address] [place] [address] Dr. Trevor Nichols WBC 4.7 103/ul Normal 4.0-11.0 [facility] Comment on above: Performed By: #### H STROPN, BNP, BMP #### [facility] [address] [place] [address] Dr. Trevor Nichols CTA CHEST WO W [...] BNP, BMP #### [facility] [address] [place] [address] Dr. Trevor Nichols [facility]on 04-18 SARS-CoV-2 (COVID-19) RNA DEVIN+probe Ql (Unsp [...] (FDA). This test was developed by [employer], [place], [place]. The performance characteristics of this [...] BMP #### [facility] [address] [address] [address] Trevor Nichols FREE T3on 05-15-2021 FREE T3 1.66 pg/mlL Critically low 2.77-5.27 [facility] Comment on above: Performed By: #### T SH, FT3 ####[facility] [address] [address]Dr. Trevor Nichols FREE T4on 05-15-2021 Free T4 [Mass/Vol] 1.06 ng/dL Normal 0.78-2.19 [facility] Comment on above: Performed By: #### F T4 ####[facility] [address] [address]Dr. Trevor Nichols LACTATE/LACTIC ACIDon 2020 Lactate [Moles/Vol] 1.2 mmol/L Normal 0.7-2.0 [facility] Comment on above: Performed By: #### L ACT ####[facility] [address] [address]Dr. Trevor Nichols Lactate [Moles/Vol] 1.5 mmol/L Normal 0.7-2.0 [facility] Comment on above: Performed By: #### L ACT ####[facility] [address] [address]Dr. Trevor Nichols PROF CHEM 8 (BAS METB)on Anion gap [Moles/Vol] 12.5 mmol/L Normal [facility] Comment on above: Performed By: #### H STROPN, BNP, BMP #### [facility] [address] [address] [address] Trevor Nichols Calcium [Mass/Vol] 8.4 mg/dL Normal 8.4-10.2 [facility] Comment on above: Performed By: #### H STROPN, BNP, BMP #### [facility] [address] [address] [address] Trevor Nichols Chloride [Moles/Vol] 106 mmol/L Normal 98-107 [facility] Comment on above: Performed By: #### H STROPN, BNP, BMP #### [facility] [address] [address] [address] Trevor Nichols CO2 [Moles/Vol] 24.8 mmol/L Normal 22.0-30.0 [facility] Comment on above: Performed By: #### H STROPN, BNP, BMP #### [facility] [address] [address] [address] Trevor Nichols Creatinine [Mass/Vol] 1.37 mg/dL Critically high 0.66-1.25 [facility] Comment on above: Performed By: #### H STROPN, BNP, BMP #### [facility] [address] [address] [address] Trevor Nichols EGFR-AF TAIWANESE >60 Normal >=60 [facility] Comment on above: Performed By: #### H STROPN, BNP, BMP #### [facility] [address] [place] [address] Dr. Trevor Nichols EGFR-NON AF TAIWANESE 51 mL/min/1.73m2 Critically low >=60 [facility] Comment on above: Performed By: #### H STROPN, BNP, BMP #### [facility] [address] [address] [address] Trevor Nichols Glucose [Mass/Vol] 114 mg/dL Critically high 74-106 [facility] Comment on above: Performed By: #### H STROPN, BNP, BMP #### [facility] [address] [address] [address] Trevor Nichols Potassium [Moles/Vol] 4.4 mmol/L Normal 3.4-5.0 [facility] Comment on above: Performed By: #### H STROPN, BNP, BMP #### [facility] [address] [address] [address] Trevor Nichols Sodium [Moles/Vol] 139 mmol/L Normal 137-145 [facility] Comment on above: Performed By: #### H STROPN, BNP, BMP #### [facility] [address] [place] [address] Dr. Trevor Nichols Urea nitrogen [Mass/Vol] 20.0 mg/dL Normal 9.0-20.0 [facility] Comment on above: Performed By: #### H STROPN, BNP, BMP #### [facility] [address] [address] [address] Trevor Nichols Urea nitrogen/Creatinine [Mass ratio] 14.6 mg/mg Normal [facility] Comment on above: Performed By: #### H STROPN, BNP, BMP #### [facility] [address] [address] [address] Trevor Nichols TROPONIN, HIGH SENSITIVITYon 05-15-2021 HSTROP 7.1 pg/mL Normal 4.0-42.2 [facility] Comment on above: Result Comment: CUT- OFF POINTS HAVE BEEN ESTABLISHED BASED ON THE FOURTH UNIVERSAL DEFINITIONS OF MYOCARDIAL INFARCTION. THE UPPER REFERENCE LIMIT (URL) OF TROPONIN, DEFINED THE 99TH PERCENTILE OF cTnI DISTRIBUTION IN A REFERENCE POPULATION, HAS BEEN CONFIRMED THE DECISION THRESHOLD FOR MD DIAGNOSIS. Performed By: #### H STROPN, BNP, BMP #### [facility] [address] [address] [address] Trevor Nichols TSHon 05-15-2021 TSH 1.972 uIU/mL Normal 0.470-4.680 [facility] Comment on above: Performed By: #### T SH, FT3 ####[facility] [address] [address]DrJeffery Nichols TSH RANGE SEE BELOW Normal [facility] Comment on above: Result Comment: <0.3 4 UIU/ml HYPERTHYROID 0.34-5.60 UIU/ml EUTHYROID >5.60 UIU/ml HYPOTHYROID Performed By: #### T SH, FT3 ####[facility] [address] [address]Dr. Trevor Nichols D-DIMERon 05-14-2021 D-DIMER 0.76 mg/L FEU Critically high 0.19-0.50 [facility] Comment on above: Performed By: #### H STROPN, BNP, BMP #### [facility] [address] [address] [address] Trevor Nichols D-DIMER COMMENTS SEE BELOW [...] BMP #### [facility] [address] [address] [address] Trevor Nichols PROF CHEM 8 (BAS METB)on Anion gap [Moles/Vol] 12.0 mmol/L Normal [facility] Comment on above: Performed By: #### H STROPN, BNP, BMP #### [facility] [address] [place] [address] Dr. Trevor Nichols Calcium [Mass/Vol] 8.5 mg/dL Normal 8.4-10.2 [facility] Comment on above: Performed By: #### H STROPN, BNP, BMP #### [facility] [address] [address] [address] Trevor Nichols Chloride [Moles/Vol] 106 mmol/L Normal 98-107 [facility] Comment on above: Performed By: #### H STROPN, BNP, BMP #### [facility] [address] [address] [address] Trevor Nichols CO2 [Moles/Vol] 25.0 mmol/L Normal 22.0-30.0 [facility] Comment on above: Performed By: #### H STROPN, BNP, BMP #### [facility] [address] [address] [address] Trevor Nichols Creatinine [Mass/Vol] 1.61 mg/dL Critically high 0.66-1.25 [facility] Comment on above: Performed By: #### H STROPN, BNP, BMP #### [facility] [address] [address] [address] Trevor Nichols EGFR-AF TAIWANESE 51 mL/min/1.73m2 Critically low >=60 [facility] Comment on above: Performed By: #### H STROPN, BNP, BMP #### [facility] [address] [place] [address] Dr. Trevor Nichols EGFR-NON AF TAIWANESE 42 mL/min/1.73m2 Critically low >=60 [facility] Comment on above: Performed By: #### H STROPN, BNP, BMP #### [facility] [address] [place] [address] Dr. Trevor Nichols Glucose [Mass/Vol] 115 mg/dL Critically high 74-106 [facility] Comment on above: Performed By: #### H STROPN, BNP, BMP #### [facility] [address] [place] [address] Dr. Trevor Nichols Potassium [Moles/Vol] 4.0 mmol/L Normal 3.4-5.0 [facility] Comment on above: Performed By: #### H STROPN, BNP, BMP #### [facility] [address] [place] [address] Dr. Trevor Nichols Sodium [Moles/Vol] 139 mmol/L Normal 137-145 [facility] Comment on above: Performed By: #### H STROPN, BNP, BMP #### [facility] [address] [place] [address] Dr. Trevor Nichols Urea nitrogen [Mass/Vol] 20.0 mg/dL Normal 9.0-20.0 [facility] Comment on above: Performed By: #### H STROPN, BNP, BMP #### [facility] [address] [place] [address] Dr. Trevor Nichols Urea nitrogen/Creatinine [Mass ratio] 12.4 mg/mg Normal [facility] Comment on above: Performed By: #### H STROPN, BNP, BMP #### [facility] [address] [place] [address] Dr. Trevor Nichols PROF CHEM 8 (BAS METB)on Anion gap [Moles/Vol] 19.5 mmol/L Normal [facility] Comment on above: Performed By: #### B MP ####[facility] [address] [id number][address] Trevor Nichols Calcium [Mass/Vol] 9.1 mg/dL Normal 8.4-10.2 [facility] Comment on above: Performed By: #### B MP ####[facility] [address] [place], [place] [address]Dr. Trevor Nichols Chloride [Moles/Vol] 104 mmol/L Normal 98-107 [facility] Comment on above: Performed By: #### B MP ####[facility] [address] [place], [place] [address]Dr. Trevor Nichols CO2 [Moles/Vol] 19.6 mmol/L Critically low 22.0-30.0 [facility] Comment on above: Performed By: #### B MP ####[facility] [address] [place], [place] [address]Dr. Trevor Nichols Creatinine [Mass/Vol] 1.69 mg/dL Critically high 0.66-1.25 [facility] Comment on above: Performed By: #### B MP ####[facility] [address] [place], [place] [address]Dr. Trevor Nichols EGFR-AF TAIWANESE 48 mL/min/1.73m2 Critically low >=60 [facility] Comment on above: Performed By: #### B MP ####[facility] [address] [place], [place] [address]Dr. Trevor Nichols EGFR-NON AF TAIWANESE 40 mL/min/1.73m2 Critically low >=60 [facility] Comment on above: Performed By: #### B MP ####[facility] [address] [place], [place] [address]Dr. Trevor Nichols Glucose [Mass/Vol] 95 mg/dL Normal 74-106 [facility] Comment on above: Performed By: #### B MP ####[facility] [address] [place], [place] [address]Dr. Trevor Nichols Potassium [Moles/Vol] 5.4 mmol/L Critically high 3.4-5.0 [facility] Comment on above: Performed By: #### B MP ####[facility] [address] [address]Dr. Trevor Nichols Sodium [Moles/Vol] 138 mmol/L Normal 137-145 [facility] Comment on above: Performed By: #### B MP ####[facility] [address] [address]Dr. Trevor Nichols Urea nitrogen [Mass/Vol] 26.0 mg/dL Critically high 9.0-20.0 [facility] Comment on above: Performed By: #### B MP ####[facility] [address] [address]Dr. Trevor Nichols Urea nitrogen/Creatinine [Mass ratio] 15.4 mg/mg Normal [facility] Comment on above: Performed By: #### B MP ####[facility] [address] [place], [place] [address]Dr. Trevor Nichols BNPon 04-29-2021 Natriuretic peptide B (Bld) [Mass/Vol] 421.0 pg/mL Normal <=900.0 [facility] Comment on above: Performed By: #### B INTAKE MANAGER, MG ####[facility] [address] [place] [address] Rose Marie CBC W MANUAL DIFFon 04-29-20 21 ATYPICAL LYMPH # 0.19 103/ul Normal [facility] Comment on above: Performed By: #### Brodie HEMPHILL ####[facility] [address] [place] [address] Rose Marie#### PERSMR ####[facility] [address] [address]Dr. Trevor Nichols ATYPICAL LYMPH % 4 % Normal [facility] Comment on above: Performed By: #### C JOBY ####[facility] [address] [place] [address] Rose Marie#### PERSMR ####[facility] [address] [place], [place] [address]Dr. Trevor Nichols BAND # 0.2 103/ul Normal 0.0-0.3 [facility] Comment on above: Performed By: #### C JOBY ####[facility] [address] [id number] Rose Marie#### PERSMR ####[facility] [address] [place], [place] [address]Dr. Yifrancie Nichols BAND % 5 % Normal 0-5 [facility] Comment on above: Performed By: #### C JOBY ####[facility] [address] [place] [address] Rose Marie#### PERSMR ####[facility] [address] [place], [place] [address]Dr. Yilan Nichols BASOM # 0.05 103/ul Normal 0.00-0.10 [facility] Comment on above: Performed By: #### C JOBY ####[facility] [address] [place] [address] Rose Marie#### PERSMR ####[facility] [address] [place], [place] [address]Dr. Yilan Nichols BASOM % 1.0 % Normal 0.2-2.0 [facility] Comment on above: Performed By: #### Brodie HEMPHILL ####[facility] [address] [place] [address] Rose Marie#### PERSMR ####[facility] [address] [place], [place] [address]Dr. Yilan Nichols BLAST # Normal [facility] Comment on above: Performed By: #### C JOBY ####[facility] [address] [place] [address] Rose Marie#### PERSMR ####[facility] [address] [address]Dr. Yilan Nichols BLAST % Normal [facility] Comment on above: Performed By: #### C JOBY ####[facility] [address] [place] [address] Rose Marie#### PERSMR ####[facility] [address] [place], [place] [address]Dr. Yilan Nichols CORRECTED WBC Normal 4.0-11.0 [facility] Comment on above: Performed By: #### Brodie HEMPHILL ####[facility] [address] [place] [address] Rose Marie#### PERSMR ####[facility] [address] [place], [place] [address]Dr. Trevor Nichols EOS # 0.00 103/ul Normal 0.00-0.70 [facility] Comment on above: Performed By: #### C JOBY ####[facility] [address] [place] [address] Rose Marie#### PERSMR ####[facility] [address] [place], [place] [address]Dr. Trevor Nichols EOS% 0.0 % Critically low 0.9-7.0 [facility] Comment on above: Performed By: #### Brodie HEMPHILL ####[facility] [address] [place] [address] Rose Marie#### PERSMR ####[facility] [address] [place], [place] [address]Dr. Trevor Nichols HCT 35.7 % Critically low 42.0-54.0 [facility] Comment on above: Performed By: #### Brodie HEMPHILL ####[facility] [address] [place] [address] Rose Marie#### PERSMR ####[facility] [address] [place], [place] [address]Dr. Trevor Nichols HGB 11.7 g/dl Critically low 14.0-18.0 [facility] Comment on above: Performed By: #### Brodie HEMPHILL ####[facility] [address] [place] [address] Rose [place]#### PERSMR ####[facility] Ekajcicgyq[address] [place], [place] [address]Dr. Trevor Nichols LYMPHM # 0.72 103/ul Critically low 1.20-3.80 [facility] Comment on above: Performed By: #### Brodie HEMPHILL ####[facility] [address]oh[address] [place] [address] [place]#### PERSMR ####[facility] Adhwmsgqxt0900 [place] [id number]. Trevor Nichols LYMPHM% 15.0 % Critically low 20.5-60.0 [facility] Comment on above: Performed By: #### Brodie HEMPHILL ####[facility] Vzekvkwoed5332 [place] [address]Ger[place] Rose Marie#### PERSMR ####[facility] Osrgjzczdm[address] [place], [place] [address]Dr. Trevor Nichols MCH 34.4 pg Critically high 25.9-34.0 [facility] Comment on above: Performed By: #### Brodie HEMPHILL ####[facility] Guayqfqkbq0[address] [place] [address] [place] Marie#### PERSMR ####[facility] Yaelmhngkp8599[address] [place], [place] [address]Dr. Trevor Nichols MCHC 32.8 g/dl Normal 29.9-35.2 [facility] Comment on above: Performed By: #### Brodie HEMPHILL ####[facility] Zaekjdobhc[address] [place] [address] Rose Marie#### PERSMR ####[facility] Ffxcprgkje16[address] [place], [place] [address]Dr. Trevor Nichols MCV 105.0 fL Critically high 80.0-94.0 [facility] Comment on above: Performed By: #### Brodie HEMPHILL ####[facility] Zbeayjdilh[address] [place], [place] [address]ken Rose Marie#### PERSMR ####[facility] Tlnqcttlba65[address] [place], [place] [address]Dr. Trevor Nichols METAMYELOCYTE # Normal [facility] Comment on above: Performed By: #### Brodie HEMPHILL ####[facility] Zwuovxhrco[address] [place], [place] [address]Gerken [place]#### PERSMR ####[facility] Cwivsgdrda9208 [place] [address]Dr. Trevor Nichols METAMYELOCYTE % Normal [facility] Comment on above: Performed By: #### Brodie HEMPHILL ####[facility] Yclnrqhkwk0708 [place] [address]Gerken [place] Marie#### PERSMR ####[facility] Dmveardmpo0675 [place] [address]Dr. Trevor Nichols MONOM# 1.25 103/ul Critically high 0.30-0.80 [facility] Comment on above: Performed By: #### Brodie HEMPHILL ####[facility] Mhkewbqjlw[address] [place] [address] Rose Marie#### PERSMR ####[facility] Synuglusod5445 [place] [address]Dr. Trevor Nichols MONOM% 26.0 % Critically high 1.7-12.0 [facility] Comment on above: Performed By: #### Brodie HEMPHILL ####[facility] Vsgvrnaqdk0[address] [place] [address] Rose Marie#### PERSMR ####[facility] Qmrbpubfti157[address] [place], [place] [address]Dr. Trevor Nichols MPV 10.5 fL Normal 9.5-13.5 [facility] Comment on above: Performed By: #### Brodie HEMPHILL ####[facility] Cuvcrxlzua23[address] [place] [address] Rose Marie#### PERSMR ####[facility] Ycinpdvygs1020 [place] [address]Dr. Trevor Nichols MYELOCYTE # Normal [facility] Comment on above: Performed By: #### Brodie HEMPHILL ####[facility] Cpawyfvrbv7285 [address] [place]#### PERSMR ####[facility] Rrtqittbqq5381 [place] [address]Dr. Trevor Nichols MYELOCYTE % Normal [facility] Comment on above: Performed By: #### Brodie HEMPHILL ####[facility] Dbtruvtrhc9243 [address] [place]#### PERSMR ####[facility] Lrcjjmudvi11[address] [place], [place] [address]Dr. Trevor Nichols NRBC Normal [facility] Comment on above: Performed By: #### Brodie HEMPHILL ####[facility] Lpfkecfiym4011 [address] [place]#### PERSMR ####[facility] Olpovkzycq1535 [place] [address]Dr. Trevor Nichols PATH REVIEW INDICATED Normal [facility] Comment on above: Performed By: #### Brodie HEMPHILL ####[facility] Rswhodogwr99[address] [place], [place] [address]Gerken [place] Marie#### PERSMR ####[facility] Cuguamxkmm6901 [place] [address]Dr. Vivifrancie Nichols PLT 158 103/ul Normal 150-450 [facility] Comment on above: Performed By: #### Brodie HEMPHILL ####[facility] Njawncfyom[address] [place] [address] Rose Marie#### PERSMR ####[facility] Yuwvrnanlk9835[address] [place], [place] [address]Dr. Trevor Nichols RBC 3.40 106/ul Critically low 4.70-6.10 [facility] Comment on above: Performed By: ###Moo HEMPHILL ####[facility] Icvndtvpvl35[address] [place] [address] Rose Marie#### PERSMR ####[facility] Xmmdcdsmkc96[address] [place], [place] [address]Dr. Trevor Simone RDW 15.6 % Critically high 11.0-15.0 [facility] Comment on above: Performed By: #### Brodie HEMPHILL ####[facility] Siagfgqxkc9147 [address] [place]#### PERSMR ####[facility] Qyegcbacnn9024 [place] [address]Dr. Trevor Simone SEG # 2.35 103/ul Normal 1.40-6.50 [facility] Comment on above: Performed By: #### Brodie HEMPHILL ####[facility] Yritcjryno[address] [place] [address] Rose Marie#### PERSMR ####[facility] Hmkbdkvtsh54[address] [place], [place] [address]Dr. Trevor Nichols SEG % 49.0 % Normal 43.0-75.0 [facility] Comment on above: Performed By: #### C FAVIONADIA ####[facility] Rmddnopyfu1432 [address] [place]#### PERSMR ####[facility] Lqgvixnbgr3349 [place] [address]Dr. Trevor Nichols WBC 4.8 103/ul Normal 4.0-11.0 [facility] Comment on above: Performed By: #### C JOBY ####[facility] Wurrlsavdd[address] [place] [address] Rose Marie#### PERSMR ####[facility] Qcrjpysclc7[address] [place], [place] [address]Dr. Trevor Nichols MAGNESIUMon 04-29-2021 Magnesium [Mass/Vol] 2.4 mg/dL Critically high 1.6-2.3 [facility] Comment on above: Performed By: #### B INTAKE MANAGER, MG ####[facility] Qmeqkibcqx[address] [place] [address] Rose Marie PERIPHERAL SMEARon Pathologist Cyto stain [...] Pardo 05/01/2021 Performed By: #### Brodie HEMPHILL ####[facility] [address]vqwiigj[address] [place] [address] [place]#### PERSMR ####[facility] Iuwlpjnigx6821 [place] [address]Dr. Trevor Nichols VITAMIN D 25 OHon 04-29-2021 VIT D 25-OH 71.4 ng/mL Normal [facility] Comment on above: Performed By: #### V ITAD ####[facility] Qhdsiluter[address] [place] [address] Rose Marie VIT D RANGES SEE BELOW Normal [facility] Comment on above: Result Comment: <20 ng/mL Vit D deficient 20 - <30 ng/mL Vit D insufficient 30 - 100 ng/mL Vit D sufficient >100 ng/mL Potential Toxicity Performed By: #### V ITAD ####[facility] Yahhnxgyra9702 [place], [place] [address]NvacoyDick Trotter POC GLUCOSE LABon 06-30-2020 Glucose [Mass/Vol] 108 mg/dL High 70-100 [facility] Comment on above: Performed By: #### 4 1000, 37014 #### [facility] [address] [place] [address], [place] Glucose [Mass/Vol] 165 mg/dL High 70-100 [facility] Comment on above: Performed By: #### 4 1000, 04761 #### [facility] [address] [place] [address], [place] C REACTIVE PROTEINon 020 CRP [Mass/Vol] 27.8 mg/L High 0.0-7.0 [facility] Comment on above: Order Comment: No: D o not add to previous draw Performed By: #### 4 1000, 75190, 16185 #### [facility] [address] [place] [address], [place] CBC COMPLETE BLOOD COUNTon 1 08-29-2019 Erythrocyte distribution width (RBC) [Ratio] 14.3 % Normal 11.5-15.0 [facility] Comment on above: Order Comment: No: D o not add to previous draw Performed By: #### 4 1000, 95105 #### [facility] [address] [place] [address], [place] Hematocrit (Bld) [Volume fraction] 34.7 % Low 39.0-50.0 [facility] Comment on above: Order Comment: No: D o not add to previous draw Performed By: #### 4 1000, 37320 #### [facility] [address] [place] [address], [place] Hemoglobin (Bld) [Mass/Vol] 11.6 g/dL Low 13.0-17.0 [facility] Comment on above: Order Comment: No: D o not add to previous draw Performed By: #### 4 1000, 89082 #### [facility] [address] [place] [address], [place] MCH (RBC) [Entitic mass] 35.5 pg High 27.0-33.0 [facility] Comment on above: Order Comment: No: D o not add to previous draw Performed By: #### 4 1000, 18020 #### [facility] [address] [place] [address], [place] MCHC (RBC) [Mass/Vol] 33.4 g/dL Normal 32.0-35.0 [facility] Comment on above: Order Comment: No: D o not add to previous draw Performed By: #### 4 1000, 11195 #### [facility] [address] [place] [address], [place] MCV (RBC) [Entitic vol] 106.1 fL High 82.0-98.0 [facility] Comment on above: Order Comment: No: D o not add to previous draw Performed By: #### 4 1000, 84361 #### [facility] [address] [facility] [place] [address], [place] Nucleated RBC/100 WBC (Bld) [Ratio] 0 % Normal 0-0 [facility] Comment on above: Order Comment: No: D o not add to previous draw Performed By: #### 4 1000, 86624 #### [facility] [address] [facility] [place] [address], [place] PLAT CNT 150 10*3/uL Normal 150-400 [facility] Comment on above: Order Comment: No: D o not add to previous draw Performed By: #### 4 1000, 83514 #### [facility] [address] [place] [address], [place] RBC (Bld) [#/Vol] 3.27 10*6/uL Low 4.20-5.70 [facility] Comment on above: Order Comment: No: D o not add to previous draw Performed By: #### 4 1000, 61521 #### [facility] [address] WBC (Bld) [#/Vol] 5.86 10*3/uL Normal 4.00-10.60 [facility] Comment on above: Order Comment: No: D o not add to previous draw Performed By: #### 4 1000, 48825 #### [facility] [address] CPKon 06-29-2020 CK [Catalytic activity/Vol] 45 U/L Normal 30-223 [facility] Comment on above: Order Comment: Unkno wn Performed By: #### 9 9909, 56492, 31778, 99783 #### [address] BRAIN WO CONTRASTon 06-29 CT BRAIN WO CONTRAST [facility] Department of Radiology [address] [place] [id number] Patient Name: CHIKI JUAREZ : 1945 Sex: M Age: Race: White Pt. Location: [id number] Patient Status: I Ordered Date: 06/29/2020 9:20:00 [...] region. Electronically signed: Aleta Armas. Transcribed by: [email or web address], User Resident: Electronically Signed by: ALETA ARMAS @ 06/29/2020 07:16 PM Normal [facility] Comment on above: Order Comment: No: D o not add to previous draw D DIMER TESTon 06-29-2020 D-DIMER TEST 1.44 mcg/mL FEU High 0.27-0.49 [facility] Comment on above: Order Comment: No: D o not add to previous draw Result Comment: D-Di fide values of less than 0.50 ug/ml (FEU) are considered to be a negative predictor of thrombosis. However, the D-Dimer result should be used in conjunction with pretest probability and should not be used alone to diagnose a thrombotic event. Performed By: #### 4 1000, 78071, 43104 #### [facility] [address] [facility] [place] [address], [place] FERRITINon 06-29-2020 Ferritin [Mass/Vol] 271 ng/mL Normal 24-336 [facility] Comment on above: Order Comment: Unkno wn Performed By: #### 9 9909, 14590, 27050, 47965 #### [facility] [address] [place] [address], [place] LDH BLOODon 06-29-2020 LDH 148 Units/L Normal 140-271 [facility] Comment on above: Order Comment: Unkno wn Performed By: #### 9 9909, 92730, 95597, 88304 #### [facility] [address] [place] [address], [place] LIPID PROFILEon 06-29-2020 Cholesterol [Mass/Vol] 176 mg/dL Normal 120-200 [facility] Comment on above: Order Comment: No: D o not add to previous draw Result Comment: CHOL ESTEROL REFERENCE RANGE: 20 YEARS AND OLDER CARDIOVASCULAR RISK Less than 200 mg/dl Low Risk 200 to 239 mg/dl Borderline Risk 240 mg/dl and greater High Risk Performed By: #### 4 1000, 82336, 77747 #### [facility] [address] [facility] [place] [address], [place] Cholesterol in HDL [Mass/Vol] 39 mg/dL Normal 23-92 [facility] Comment on above: Order Comment: No: D o not add to previous draw Result Comment: Slig ht variation in normal range could be due to gender and/or age. HDL CHOLESTEROL REFERENCE RANGE: 20 years and older Cardiovascular Risk > or =60 mg/dL Desirable 40 TO 59 mg/dL Low Risk <40 mg/dL High Risk Performed By: #### 4 1000, 33264, 98332 #### [facility] [address] [place] [address], [place] Cholesterol in LDL [Mass/Vol] 100 mg/dL Normal 0-130 [facility] Comment on above: Order Comment: No: D o not add to previous draw Result Comment: LDL IS A CALCULATION LDL IS ONLY VALID IF THE TRIG IS LESS THAN 400. Performed By: #### 4 1000, 17766, 40783 #### [facility] [address] Cholesterol.total/Ch olesterol in HDL [Mass ratio] 4.5 {ratio} Normal 0.0-4.5 [facility] Comment on above: Order Comment: No: D o not add to previous draw Performed By: #### 4 1000, 71979, 42580 #### [facility] [address] [facility] NON-HDL CHOLESTEROL 137 mg/dL Normal [facility] Comment on above: Order Comment: No: D o not add to previous draw Performed By: #### 4 1000, 29959, 42503 #### [facility] [address] [facility]. [address] Triglyceride [Mass/Vol] 187 mg/dL High 40-149 [facility] Comment on above: Order Comment: No: D o not add to previous draw Result Comment: TRIG LYCERIDE REFERENCE RANGE: 20 YEARS AND OLDER CARDIOVASCULAR RISK LESS THAN 150 mg/dl LOW RISK 150 TO 199 mg/dl BORDERLINE RISK 200 mg/dl AND GREATER HIGH RISK Performed By: #### 4 1000, 00494, 38349 #### [facility] [address] [facility] [address], [place] VLDL CHOL 37 mg/dL Normal 0-40 [facility] Comment on above: Order Comment: No: D o not add to previous draw Performed By: #### 4 1000, 97363, 13182 #### [facility] [address] [facility] [place] [address], [place] LIVER BATTERYon 06-29-2020 Albumin [Mass/Vol] 3.4 g/dL Low 3.5-5.7 [facility] Comment on above: Order Comment: Unkno wn Performed By: #### 9 9909, 68936, 32426, 87955 #### [facility] [address] [place] [address], [place] ALKALINE PHOSPH 60 IU/L Normal 34-104 [facility] Comment on above: Order Comment: Unkno wn Performed By: #### 9 9909, 32360, 06756, 87083 #### [facility] [address] [place] [address], [place] ALT [Catalytic activity/Vol] 8 U/L Normal 7-52 [facility] Comment on above: Order Comment: Unkno wn Performed By: #### 9 9909, 33356, 61659, 23853 #### [facility] [address] [place] [address], [place] AST [Catalytic activity/Vol] 11 U/L Low 13-39 [facility] Comment on above: Order Comment: Unkno wn Performed By: #### 9 9909, 07545, 40972, 98172 #### [facility] [address] [place] [address], [place] Bilirubin [Mass/Vol] 0.5 mg/dL Normal 0.3-1.0 [facility] Comment on above: Order Comment: Unkno wn Performed By: #### 9 9909, 64811, 63245, 62981 #### [facility] [address] [place] [address], [place] Bilirubin.direct [Mass/Vol] 0.1 mg/dL Normal 0.0-0.2 [facility] Comment on above: Order Comment: Unkno wn Performed By: #### 9 9909, 32780, 32147, 61064 #### [facility] [address] [place] [address], [place] Protein [Mass/Vol] 5.8 g/dL Low 6.0-8.3 [facility] Comment on above: Order Comment: Unkno wn Performed By: #### 9 9909, 74195, 82828, 36136 #### [facility] [address] [place] [address], [place] POC GLUCOSE LABon 06-29-2020 Glucose [Mass/Vol] 112 mg/dL High 70-100 [facility] Comment on above: Performed By: #### 4 1000, 59458 #### [facility] [address] [facility] [place] [address], [place] Glucose [Mass/Vol] 105 mg/dL High 70-100 [facility] Comment on above: Performed By: #### 4 1000, 57816 #### [facility] [address] [facility] [place] [address], [place] Glucose [Mass/Vol] 94 mg/dL Normal 70-100 [facility] Comment on above: Performed By: #### 4 1000, 61220, 45032 #### [facility] [address] [place] [address], [place] Glucose [Mass/Vol] 121 mg/dL High 70-100 [facility] Comment on above: Performed By: #### 4 1000, 06723 #### [facility] [address] [facility] [address], [place] PORTABLE CHEST 1 VIEWon 06-17 PORTABLE CHEST 1 VIEW [facility] Department of Radiology [address] [place] [id number] Patient Name: CHIKI JUAREZ : 1945 Sex: M Age: Race: White Pt. Location: [id number] Patient Status: I Ordered Date: 06/29/2020 5:45:00 [...] placement. Electronically signed: Aleta Armas. Transcribed by: [email or web address], User Resident: Electronically Signed by: ALETA ARMAS @ 06/29/2020 08:15 PM Normal [facility] Comment on above: Order Comment: No: D o not add to previous draw BASIC METABOLIC PANELon 06-17 Calcium [Mass/Vol] 8.8 mg/dL Normal 8.6-10.3 [facility] Comment on above: Order Comment: No: D o not add to previous draw Performed By: #### 4 999, , 88278 #### [facility] [address] [place] [address], [place] Chloride [Moles/Vol] 102 mmol/L Normal 98-107 [facility] Comment on above: Order Comment: No: D o not add to previous draw Performed By: #### 4 999, , 92344 #### [facility] [address] [place] [address], [place] CO2 [Moles/Vol] 24 mmol/L Normal 21-31 [facility] Comment on above: Order Comment: No: D o not add to previous draw Performed By: #### 4 1000, , 16577 #### [facility] [address] [place] [address], [place] Creatinine [Mass/Vol] 1.31 mg/dL High 0.70-1.30 [facility] Comment on above: Order Comment: No: D o not add to previous draw Performed By: #### 4 1000, 82286, 20959 #### [facility] [address] [place] [address], [place] GFR/1.73 sq M predicted among blacks MDRD (S/P/Bld) [Vol rate/Area] mL/min/{1.73_m2} Normal >60 [facility] Comment on above: Order Comment: No: D o not add to previous draw Result Comment: Calc ulation may not be valid for patients over 70 years Performed By: #### 4 1000, , 77298 #### [facility] [address] [place] [address], [place] GFR/1.73 sq M predicted among non-blacks MDRD (S/P/Bld) [Vol rate/Area] 54 ml/min/1.73sq m Abnormal >60 [facility] Comment on above: Order Comment: No: D o not add to previous draw Result Comment: Calc ulation may not be valid for patients over 70 years Performed By: #### 4 1000, 54948, 31517 #### [facility] [address] [place] [address], [place] Glucose [Mass/Vol] 96 mg/dL Normal 70-100 [facility] Comment on above: Order Comment: No: D o not add to previous draw Performed By: #### 4 1000, , 61114 #### [facility] [address] [place] [address], [place] Potassium [Moles/Vol] 4.3 mmol/L Normal 3.5-5.1 [facility] Comment on above: Order Comment: No: D o not add to previous draw Performed By: #### 4 1000, 08359, 65404 #### [facility] [address] [place] [address], [place] Sodium [Moles/Vol] 133 mmol/L Low 136-145 [facility] Comment on above: Order Comment: No: D o not add to previous draw Performed By: #### 4 1000, , 42178 #### [facility] [address] [place] [address], [place] Urea nitrogen [Mass/Vol] 26 mg/dL High 7-25 [facility] Comment on above: Order Comment: No: D o not add to previous draw Performed By: #### 4 1000, , 83533 #### [facility] [address] [place] [address], [place] CBC COMPLETE BLOOD COUNTon 08-28-2019 Erythrocyte distribution width (RBC) [Ratio] 14.4 % Normal 11.5-15.0 [facility] Comment on above: Order Comment: No: D o not add to previous draw Performed By: #### 4 1000, , #### [facility] [address] [place] [address], [place] Hematocrit (Bld) [Volume fraction] 35.2 % Low 39.0-50.0 [facility] Comment on above: Order Comment: No: D o not add to previous draw Performed By: #### 4 1000, , 35954 #### [facility] [address] [place] [address], [place] Hemoglobin (Bld) [Mass/Vol] 11.8 g/dL Low 13.0-17.0 [facility] Comment on above: Order Comment: No: D o not add to previous draw Performed By: #### 4 1000, , 37081 #### [facility] [address] [place] [address], [place] MCH (RBC) [Entitic mass] 35.5 pg High 27.0-33.0 [facility] Comment on above: Order Comment: No: D o not add to previous draw Performed By: #### 4 1000, , 39239 #### [facility] [address] [place] [address], [place] MCHC (RBC) [Mass/Vol] 33.5 g/dL Normal 32.0-35.0 [facility] Comment on above: Order Comment: No: D o not add to previous draw Performed By: #### 4 1000, , 30024 #### [facility] [address] [place] [address], [place] MCV (RBC) [Entitic vol] 106.0 fL High 82.0-98.0 [facility] Comment on above: Order Comment: No: D o not add to previous draw Performed By: #### 4 1000, , 57464 #### [facility] [address] [facility] [place] [address], [place] Nucleated RBC/100 WBC (Bld) [Ratio] 0 % Normal 0-0 [facility] Comment on above: Order Comment: No: D o not add to previous draw Performed By: #### 4 1000, , 27764 #### [facility] [address] [facility] [place] [address], [place] PLAT CNT 158 10*3/uL Normal 150-400 [facility] Comment on above: Order Comment: No: D o not add to previous draw Performed By: #### 4 1000, , 88114 #### [facility] [address] [facility] [place] [address], [place] RBC (Bld) [#/Vol] 3.32 10*6/uL Low 4.20-5.70 [facility] Comment on above: Order Comment: No: D o not add to previous draw Performed By: #### 4 1000, , 63075 #### [facility] [address] [facility] [place] [address], [place] WBC (Bld) [#/Vol] 7.25 10*3/uL Normal 4.00-10.60 [facility] Comment on above: Order Comment: No: D o not add to previous draw Performed By: #### 4 1000, , 28951 #### [facility] [address] [place] [address], [place] Cardiovascular Lab Reporton 06-28-2020 Cardiovascular Lab Report [facility] Patient Name: Chiki Juarez [facility] MR #: [id number] Physician: Connor Carrera MD Department of Service Date: 06/28/2020 Medicine Birthdate: 1945 Division of Room #: 3CD 374223 Cardiology Adult Cardiovascular Services [facility] [address] [place], [place] [address] Cardiovascular Laboratory Report DUAL CHAMBER PACEMAKER IMPLANT PROCEDURE NOTE DATE OF PROCEDURE: 06/28/2020 PERFORMING PHYSICIAN: Dr. Connor Carrera CONSENT: Patient LOCATION: EP Lab PROCEDURE PERFORMED: 1. Implantation of pacemaker ([employer]) 2. Ultrasound guided venous access INDICATIONS: [...] using modified seldinger technique using a 5 Argentine micro-puncture needle on two occasions and 0.24 [...] was made enough for the device. 6 [place] Safesheaths were placed over the wire. An active fixation [employer] pacing lead was then delivered through the 6Fsheath to the right ventricle. After confirmation of lead position on orthogonal views (PARK and KURT) to confirm septal position, the screw was activated, and the lead was placed in the right ventricular mid cavity towards the septum. After confirmation of good sensing parameters, injury pattern and pacing thresholds, 10V pacing was done and no diaphragmatic stimulation was noted. It was then secured in the pocket using three 1-0 Silk sutures. Then an active fixation [employer] lead was delivered through the 6Fsheath to the right atrial appendage. After confirmation of lead position on orthogonal views (PARK and KURT), the screw was activated. After confirmation of [...] immediate procedural complications were noted. Device info: [employer] Accolade MRI EL Model# L331 Serial# [id number] RA lead: Model# [id number] [id number] (45cms) Serial# [id number] Sensin.7mV Threshold: 0.9V@0.4ms Impedance: 666Ohms RV lead: Model# [id number](52cms) Serial# [id number] Sensin.1mV Threshold: 0.4V@0.4ms Impedance: 746Ohms POST PROCEDURE [...] P/Connor Carrera MD Date Trans: 06/28/2020 03:33 P/guilhermeo [id number] cc: Will Sherwood M.D. [address] [place] [id number] Normal [facility] MAGNESIUM BLOODon 06-28-2020 Magnesium [Mass/Vol] 2.1 mg/dL Normal 1.9-2.7 [facility] Comment on above: Order Comment: No: D o not add to previous draw Performed By: #### 4 1000, 63905, 76635 #### [facility] [address] [place] [address], [place] PHOSPHORUS BLOODon 0 Phosphate [Mass/Vol] 3.7 mg/dL Normal 2.5-5.0 [facility] Comment on above: Order Comment: No: D o not add to previous draw Performed By: #### 4 1000, 49809, 14020 #### [facility] [address] [place] [address], [place] POC GLUCOSE LABon 06-28-2020 Glucose [Mass/Vol] 93 mg/dL Normal 70-100 [facility] Comment on above: Performed By: #### 4 1000, 92346 #### [facility] [address] [place] [address], [place] Glucose [Mass/Vol] 90 mg/dL Normal 70-100 [facility] Comment on above: Performed By: #### 4 1000, 07070 #### [facility] [address] [place] [address], [place] Glucose [Mass/Vol] 97 mg/dL Normal 70-100 [facility] Comment on above: Performed By: #### 4 1000, 90259 #### [facility] [address] [place] [address], [place] Glucose [Mass/Vol] 99 mg/dL Normal 70-100 [facility] Comment on above: Performed By: #### 4 1000, 42370 #### [facility] [address] [place] [id number], [place] APTTon 06-27-2020 aPTT Coag (Bld) [Time] 34.8 s Normal 25.0-35.0 [facility] Comment on above: Order Comment: No: [...] THIS PURPOSE. Performed By: #### 4 1000, 27029 #### [facility] [address] [facility] [facility] [facility] [place] [id number], [place] BASIC METABOLIC PANELon 06-17 Calcium [Mass/Vol] 9.1 mg/dL Normal 8.6-10.3 [facility] Comment on above: Order Comment: No: D o not add to previous draw Performed By: #### 4 1000, 67241, 25943 #### [facility] [address] [place] [address], [place] Chloride [Moles/Vol] 104 mmol/L Normal 98-107 [facility] Comment on above: Order Comment: No: D o not add to previous draw Performed By: #### 4 1000, 76941, 90786 #### [facility] [address] [place] [address], [place] CO2 [Moles/Vol] 23 mmol/L Normal 21-31 [facility] Comment on above: Order Comment: No: D o not add to previous draw Performed By: #### 4 1000, , 61390 #### [facility] [address] [place] [address], [place] Creatinine [Mass/Vol] 1.21 mg/dL Normal 0.70-1.30 [facility] Comment on above: Order Comment: No: D o not add to previous draw Performed By: #### 4 1000, , 06837 #### [facility] [address] [place] [address], [place] GFR/1.73 sq M predicted among blacks MDRD (S/P/Bld) [Vol rate/Area] mL/min/{1.73_m2} Normal >60 [facility] Comment on above: Order Comment: No: D o not add to previous draw Result Comment: Calc ulation may not be valid for patients over 70 years Performed By: #### 4 1000, , 29783 #### [facility] [address] [place] [address], [place] GFR/1.73 sq M predicted among non-blacks MDRD (S/P/Bld) [Vol rate/Area] 59 ml/min/1.73sq m Abnormal >60 [facility] Comment on above: Order Comment: No: D o not add to previous draw Result Comment: Calc ulation may not be valid for patients over 70 years Performed By: #### 4 1000, , 14425 #### [facility] [address] [place] [address], [place] Glucose [Mass/Vol] 132 mg/dL High 70-100 [facility] Comment on above: Order Comment: No: D o not add to previous draw Performed By: #### 4 1000, , 56320 #### [facility] [address] [place] [address], [place] Potassium [Moles/Vol] 5.2 mmol/L High 3.5-5.1 [facility] Comment on above: Order Comment: No: D o not add to previous draw Performed By: #### 4 1000, 59723, 75621 #### [facility] [address] [place] [address], [place] Sodium [Moles/Vol] 135 mmol/L Low 136-145 [facility] Comment on above: Order Comment: No: D o not add to previous draw Performed By: #### 4 1000, 21436, 40742 #### [facility] [address] [place] [address], [place] Urea nitrogen [Mass/Vol] 21 mg/dL Normal 7-25 [facility] Comment on above: Order Comment: No: D o not add to previous draw Performed By: #### 4 1000, 40467, 03502 #### [facility] [address] [facility]. [address] C REACTIVE PROTEINon 020 CRP [Mass/Vol] 40.5 mg/L High 0.0-7.0 [facility] Comment on above: Order Comment: No: D o not add to previous draw Performed By: #### 4 1000, 33088, 48953 #### [facility] [address] [facility] [address], [place] CBC W/DIFFon 06-27-2020 ABS BASOPHILS 0.0 10*3/uL Normal 0.0-0.2 [facility] Comment on above: Order Comment: No: D o not add to previous draw Performed By: #### 4 1000, 31745 #### [facility] [address] [place] [address], [place] ABS NEUTROPHILS 4.5 10*3/uL Normal 1.6-7.6 [facility] Comment on above: Order Comment: No: D o not add to previous draw Performed By: #### 4 1000, 01169 #### [facility] [address] [place] [address], [place] Basophils/100 WBC (Bld) 0.0 % Normal 0.0-1.0 [facility] Comment on above: Order Comment: No: D o not add to previous draw Performed By: #### 4 1000, 03234 #### [facility] [address] [place] [address], [place] Eosinophils (Bld) [#/Vol] 0.0 10*3/uL Normal 0.0-0.5 [facility] Comment on above: Order Comment: No: D o not add to previous draw Performed By: #### 4 1000, 44686 #### [facility] [address] [place] [address], [place] Eosinophils/100 WBC (Bld) 0.0 % Normal 0.0-6.0 [facility] Comment on above: Order Comment: No: D o not add to previous draw Performed By: #### 4 1000, 92136 #### [facility] [address] [place] [address], [place] Erythrocyte distribution width (RBC) [Ratio] 14.1 % Normal 11.5-15.0 [facility] Comment on above: Order Comment: No: D o not add to previous draw Performed By: #### 4 1000, 22312 #### [facility] [address] [place] [address], [place] GIANT PLATELETS Present Normal [facility] Comment on above: Order Comment: No: D o not add to previous draw Performed By: #### 4 1000, 90323 #### [facility] [address] [place] [address], [place] Hematocrit (Bld) [Volume fraction] 36.0 % Low 39.0-50.0 [facility] Comment on above: Order Comment: No: D o not add to previous draw Performed By: #### 4 1000, 48676 #### [facility] [address] [place] [address], [place] Hemoglobin (Bld) [Mass/Vol] 11.8 g/dL Low 13.0-17.0 [facility] Comment on above: Order Comment: No: D o not add to previous draw Performed By: #### 4 1000, 95634 #### [facility] [address] [place] [address], [place] Lymphocytes (Bld) [#/Vol] 0.5 10*3/uL Low 1.2-4.0 [facility] Comment on above: Order Comment: No: D o not add to previous draw Performed By: #### 4 1000, 19452 #### [facility] [address] [place] [address], [place] Lymphocytes/100 WBC (Bld) 8.2 % Low 20.0-45.0 [facility] Comment on above: Order Comment: No: D o not add to previous draw Performed By: #### 4 1000, 66183 #### [facility] [address] [place] [address], [place] MCH (RBC) [Entitic mass] 35.2 pg High 27.0-33.0 [facility] Comment on above: Order Comment: No: D o not add to previous draw Performed By: #### 4 1000, 83066 #### [facility] [address] [place] [address], [place] MCHC (RBC) [Mass/Vol] 32.8 g/dL Normal 32.0-35.0 [facility] Comment on above: Order Comment: No: D o not add to previous draw Performed By: #### 4 1000, 87595 #### [facility] [address] [place] [address], [place] MCV (RBC) [Entitic vol] 107.5 fL High 82.0-98.0 [facility] Comment on above: Order Comment: No: D o not add to previous draw Performed By: #### 4 1000, 84197 #### [facility] [address] [place] [address], [place] METAMYELO 3.7 % High 0.0-0.0 [facility] Comment on above: Order Comment: No: D o not add to previous draw Performed By: #### 4 1000, 00239 #### [facility] [address] [place] [address], [place] Monocytes (Bld) [#/Vol] 0.5 10*3/uL Normal 0.1-1.0 [facility] Comment on above: Order Comment: No: D o not add to previous draw Performed By: #### 4 1000, 22585 #### [facility] [address] [place] [address], [place] MONOS 9.2 % Normal 5.0-12.0 [facility] Comment on above: Order Comment: No: D o not add to previous draw Performed By: #### 4 1000, 12970 #### [facility] [address] [place] [address], [place] MYELOS 3.7 % High 0.0-0.0 [facility] Comment on above: Order Comment: No: D o not add to previous draw Performed By: #### 4 1000, 27113 #### [facility] [address] [facility] [address], [place] Neutrophils/100 WBC (Bld) 75.2 % High 40.0-72.0 [facility] Comment on above: Order Comment: No: D o not add to previous draw Performed By: #### 4 1000, 58508 #### [facility] [address] [place] [address], [place] NRBC SCAN Present Normal [facility] Comment on above: Order Comment: No: D o not add to previous draw Performed By: #### 4 1000, 82870 #### [facility] [address] [place] [address], [place] Nucleated RBC/100 WBC (Bld) [Ratio] 0 % Normal 0-0 [facility] Comment on above: Order Comment: No: D o not add to previous draw Performed By: #### 4 1000, 20717 #### [facility] [address] [facility] [place] [address], [place] PLAT CNT 153 10*3/uL Normal 150-400 [facility] Comment on above: Order Comment: No: D o not add to previous draw Performed By: #### 4 1000, 12811 #### [facility] [address] [facility] [place] [address], [place] RBC (Bld) [#/Vol] 3.35 10*6/uL Low 4.20-5.70 [facility] Comment on above: Order Comment: No: D o not add to previous draw Performed By: #### 4 1000, 40502 #### [facility] [address] [facility] [address], [place] WBC (Bld) [#/Vol] 5.92 10*3/uL Normal 4.00-10.60 [facility] Comment on above: Order Comment: No: D o not add to previous draw Performed By: #### 4 1000, 64329 #### [facility] [address] [facility] [address], [place] CPKon 06-27-2020 CK [Catalytic activity/Vol] 90 U/L Normal 30-223 [facility] Comment on above: Order Comment: No: D o not add to previous draw Performed By: #### 4 1000, 48872, 04825 #### [facility] [address] [facility] [address], [place] CTA HEADon 06-27-2020 CTA HEAD [facility] Department of Radiology [address] [place] [id number] Patient Name: CHIKI JUAREZ : 1945 Sex: M Age: Race: White Pt. Location: [id number] Patient Status: I Ordered Date: 06/27/2020 9:05:00 [...] achievable Electronically signed: Ashu García. Transcribed by: [email or web address], User Resident: Electronically Signed by: ASHU GARCÍA @ 06/27/2020 01:12 PM Normal [facility] Comment on above: Order Comment: No: D o not add to previous draw CTA NECKon 06-27-2020 CTA NECK [facility] Department of Radiology [address] [place] [id number] Patient Name: CHIKI JUAREZ : 1945 Sex: M Age: Race: White Pt. Location: [id number] Patient Status: I Ordered Date: 06/27/2020 9:05:00 [...] viewed on a separate workstation. The [place] Symptomatic Carotid Endarterectomy Trial (NASCET) method for [...] achievable Electronically signed: Ashu García. Transcribed by: [email or web address], User Resident: Electronically Signed by: ASHU GARCÍA @ 06/27/2020 01:08 PM Normal [facility] D DIMER TESTon 06-27-2020 D-DIMER TEST 0.39 mcg/mL FEU Normal 0.27-0.49 [facility] Comment on above: Order Comment: No: D o not add to previous draw Result Comment: D-Di fide values of less than 0.50 ug/ml (FEU) are considered to be a negative predictor of thrombosis. However, the D-Dimer result should be used in conjunction with pretest probability and should not be used alone to diagnose a thrombotic event. Performed By: #### 4 1000, 75896 #### [facility] [address] [facility] [address], [place] FERRITINon 06-27-2020 Ferritin [Mass/Vol] 250 ng/mL Normal 24-336 [facility] Comment on above: Order Comment: No: D o not add to previous draw Performed By: #### 4 1000, 21705, 68494 #### [facility] [address] [place] [address], [place] HEMOGLOBIN A1Con 06-27-2020 HbA1c (Bld) [Mass fraction] 134 mmol/L Normal [facility] Comment on above: Order Comment: No: D o not add to previous draw Performed By: #### 4 1000, 84633, 76580 #### [facility] [address] [place] [address], [place] HbA1c (Bld) [Mass fraction] 6.3 % High 4.0-6.0 [facility] Comment on above: Order Comment: No: D o not add to previous draw Performed By: #### 4 1000, 36929, 56617 #### [facility] [address] [place] [address], [place] LDH BLOODon 06-27-2020 LDH 213 Units/L Normal 140-271 [facility] Comment on above: Order Comment: No: D o not add to previous draw Performed By: #### 4 1000, 27581, 33389 #### [facility] [address] [place] [address], [place] LIVER BATTERYon 06-27-2020 Albumin [Mass/Vol] 3.5 g/dL Normal 3.5-5.7 [facility] Comment on above: Order Comment: No: D o not add to previous draw Performed By: #### 4 1000, 10722, 94951 #### [facility] [address] [place] [address], [place] ALKALINE PHOSPH 62 IU/L Normal 34-104 [facility] Comment on above: Order Comment: No: D o not add to previous draw Performed By: #### 4 1000, 53264, 30950 #### [facility] [address] [place] [address], [place] ALT [Catalytic activity/Vol] 11 U/L Normal 7-52 [facility] Comment on above: Order Comment: No: D o not add to previous draw Performed By: #### 4 1000, 00712, 90848 #### [facility] [address] [place] [address], [place] AST [Catalytic activity/Vol] 10 U/L Low 13-39 [facility] Comment on above: Order Comment: No: D o not add to previous draw Performed By: #### 4 1000, 51419, 13192 #### [facility] [address] [place] [address], [place] Bilirubin [Mass/Vol] 0.5 mg/dL Normal 0.3-1.0 [facility] Comment on above: Order Comment: No: D o not add to previous draw Performed By: #### 4 1000, 78224, 13384 #### [facility] [address] [place] [address], [place] Bilirubin.direct [Mass/Vol] 0.2 mg/dL Normal 0.0-0.2 [facility] Comment on above: Order Comment: No: D o not add to previous draw Performed By: #### 4 1000, 33034, 29124 #### [facility] [address] [place] [address], [place] Protein [Mass/Vol] 6.0 g/dL Normal 6.0-8.3 [facility] Comment on above: Order Comment: No: D o not add to previous draw Performed By: #### 4 1000, 23634, 75436 #### [facility] [address] [place] [address], [place] MAGNESIUM BLOODon 06-27-2020 Magnesium [Mass/Vol] 2.3 mg/dL Normal 1.9-2.7 [facility] Comment on above: Order Comment: No: D o not add to previous draw Performed By: #### 4 1000, 44316, 44971 #### [facility] [address] [place] [address], [place] POC GLUCOSE LABon 06-27-2020 Glucose [Mass/Vol] 103 mg/dL High 70-100 [facility] Comment on above: Performed By: #### 4 1000, 19794 #### [facility] [address] [place] [address], [place] Glucose [Mass/Vol] 100 mg/dL Normal 70-100 [facility] Comment on above: Performed By: #### 4 1000, 15561 #### [facility] [address] POTASSIUM BLOODon 06-27-2020 Potassium [Moles/Vol] 4.5 mmol/L Normal 3.5-5.1 [facility] Comment on above: Order Comment: No: D o not add to previous draw Performed By: #### 4 7766 #### [facility] [address] [place] [address], [place] PROTHROMBIN TIMEon 0 INR Coag (PPP) [Relative time] 1.05 {INR} Normal 0.91-1.16 [facility] Comment on above: Order Comment: No: [...] CHEST 1995;[id number]. Performed By: #### 4 1000, 97176 #### [facility] [address] [place] [address], [place] PT Coag (PPP) [Time] 13.7 s Normal 12.3-14.8 [facility] Comment on above: Order Comment: No: D o not add to previous draw Result Comment: ALL RESULTS MUST BE INTERPRETED WITH RESPECT TO BLOOD DRAWING ARTIFACT OR DILUTION ERROR OF ANTICOAGULANT AT THE TIME OF SAMPLING. Performed By: #### 4 1000, 43979 #### [facility] [address] TSH3 WITH REFLEX FT4on 06-27 TSH 3RD GENERATION 0.86 uIU/mL Normal 0.34-5.60 [facility] Comment on above: Performed By: #### 4 1000, 26838, 51380 #### [facility] [address] [facility]. [address] VITAMIN B12on 06-27-2020 Cobalamin (Vitamin B12) [Mass/Vol] 3006 pg/mL High 180-914 [facility] Comment on above: Result Comment: REFE RENCE RANGES: 180-914 pg/mL Normal 145-179 pg/mL Indeterminate <145 pg/mL Deficient Performed By: #### 4 1000, 26966, 77031 #### [facility] [address] PHOSPHORUS BLOODon 0 Phosphate [Mass/Vol] 3.2 mg/dL Normal 2.5-5.0 [facility] Comment on above: Order Comment: No: D o not add to previous draw Performed By: #### 4 1000, 07566 #### [facility] [address] TROPONIN-Ion 06-26-2020 Troponin I.cardiac [Mass/Vol] 0.01 ng/mL Normal 0.00-0.04 [facility] Comment on above: Order Comment: No: D o not add to previous draw Result Comment: REFE RENCE RANGES: 0.00 - 0.04 ng/ml NORMAL 0.05 - 0.50 ng/ml INDETERMINATE > 0.50 ng/ml CONSISTENT WITH AN M.I. Performed By: #### 4 1000, 35389 #### [facility] [address] Vital Signs Date Time Vital Sign Value Performing Clinician Facility 03-15-2025 15:11-0400 Body height 160 cm Gil Angulo DPM FACFAS Work Phone: [place] [id number] 15:11-0400 Body mass index (BMI) [Ratio] 37.73 kg/m2 Gil Chadoliverio DPM FACFAS Work Phone: [facility] 03-15-2025 15:11-0400 Body weight 96.62 kg Gil Angulo DPM FAC[facility]AS Work Phone: [facility] 03-15-2025 15:11-0400 Diastolic blood pressure 72 mm[Hg] Gil Chadoliverio DPM FACFAS Work Phone: [facility] 03-15-2025 15:11-0400 Heart rate 77 /min Gil Chadoliverio DPM FAC[facility]AS Work Phone: [facility] 03-15-2025 15:11-0400 Systolic blood pressure 146 mm[Hg] Gil Chadoliverio DPM FACFAS Work Phone: [facility] 11-21-2024 15:05-0400 Body mass index (BMI) [Ratio] 32.52 kg/m2 Tyler Draper MD Work Phone: [facility] 11-21-2024 15:05-0400 Body temperature 97.7 [degF] Tyler Draper MD Work Phone: [facility] 11-21-2024 15:05-0400 Body weight 97 kg Tyler Draper MD Work Phone: [facility] 11-21-2024 15:05-0400 Diastolic blood pressure 65 mm[Hg] Tyler Draper MD Work Phone: [facility] 11-21-2024 15:05-0400 Heart rate 83 /min Tyler Draper MD Work Phone: [facility] 11-21-2024 15:05-0400 Respiratory rate 24 /min Tyler Draper MD Work Phone: [facility] 11-21-2024 15:05-0400 SaO2% (BldA) [Mass fraction] 90 % Tyler Draper MD Work Phone: [facility] 11-21-2024 15:05-0400 Systolic blood pressure 122 mm[Hg] Tyler Draper MD Work Phone: [facility] 06-20-2024 08:42-0500 Body height 162.6 cm Connor Biedenbach DO Work Phone: [facility] 06-20-2024 08:42-0500 Body mass index (BMI) [Ratio] 37.76 kg/m2 Connor Biedenbach DO Work Phone: [facility] 06-20-2024 08:42-0500 Body weight 99.79 kg Connor Biedenbach DO Work Phone: [facility] 06-09-2024 09:43-0400 Body height 162.6 cm Connor Biedenbach DO Work Phone: [facility] 06-09-2024 09:43-0400 Body mass index (BMI) [Ratio] 37.76 kg/m2 Connor Biedenbach DO Work Phone: [facility] 06-09-2024 09:43-0400 Body weight 99.79 kg Connor Biedenbach DO Work Phone: [facility] 06-06-2024 13:36-0400 Body mass index (BMI) [Ratio] 33.83 kg/m2 Tyler Draper MD Work Phone: [facility] 06-06-2024 13:36-0400 Body temperature 97 [degF] Tyler Draper MD Work Phone: [facility] 06-06-2024 13:36-0400 Body weight 100.9 kg Tyler Draper MD Work Phone: [facility] 06-06-2024 13:36-0400 Diastolic blood pressure 59 mm[Hg] Tyler Draper MD Work Phone: [facility] 06-06-2024 13:36-0400 Heart rate 74 /min Tyler Draper MD Work Phone: [facility] 06-06-2024 13:36-0400 Respiratory rate 18 /min Tyler Draper MD Work Phone: [facility] 06-06-2024 13:36-0400 SaO2% (BldA) [Mass fraction] 90 % Tyler Draper MD Work Phone: [facility] 06-06-2024 13:36-0400 Systolic blood pressure 109 mm[Hg] Tyler Draper MD Work Phone: [facility] 06-01-2024 16:00-0400 Diastolic blood pressure 64 mm[Hg] MD Pito Patterson Work Phone: [facility] 06-01-2024 16:00-0400 Heart rate 75 /min MD Pito Patterson Work Phone: [facility] 06-01-2024 16:00-0400 Inhaled oxygen concentration 4 % MD Pito Patterson Work Phone: [facility] 06-01-2024 16:00-0400 Respiratory rate 20 /min MD Pito Patterson Work Phone: [facility] 06-01-2024 16:00-0400 SaO2% (BldA) [Mass fraction] 99 % MD Pito Patterson Work Phone: [facility] 06-01-2024 16:00-0400 Systolic blood pressure 121 mm[Hg] MD Pito Patterson Work Phone: [facility] 06-01-2024 13:16-0400 Inhaled oxygen flow rate 4 L/min MD Pito Patterson Work Phone: [facility] 06-01-2024 13:02-0400 Body height 162.56 cm MD Pito Patterson Work Phone: [facility] 06-01-2024 13:02-0400 Body temperature 97.5 [degF] MD Pito Patterson Work Phone: [facility] 06-01-2024 13:02-0400 Body weight 98.88 kg MD Pito Patterson Work Phone: [facility] 05-31-2024 14:31-0400 Body height 162.6 cm Connor Crawley DO Work Phone: [facility] 05-31-2024 14:31-0400 Body mass index (BMI) [Ratio] 37.76 kg/m2 Connor Crawley DO Work Phone: [facility] 05-31-2024 14:31-0400 Body weight 99.79 kg Connor Crawley DO Work Phone: [facility] 04-22-2024 09:41-0400 Blood Pressure Location Oni MCKEON [facility] 04-22-2024 09:41-0400 Body temperature 98.6 [degF] Oni MCKEON [facility] 04-22-2024 09:41-0400 Diastolic blood pressure 52 mm[Hg] Oni MCKEON [facility] 04-22-2024 09:41-0400 Heart rate 59 /min Oni MCKEON [facility] 04-22-2024 09:41-0400 Respiratory rate 16 /min Oni MCKEON [facility] 04-22-2024 09:41-0400 Systolic blood pressure 102 mm[Hg] Oni MCKEON [facility] 04-19-2024 14:18-0400 Body height 172.7 cm Tyler Draper MD Work Phone: [facility] 04-19-2024 14:18-0400 Body mass index (BMI) [Ratio] 33.16 kg/m2 Tyler Draper MD Work Phone: [facility] 04-19-2024 14:18-0400 Body temperature 96.8 [degF] Tyler Draper MD Work Phone: [facility] [facility] 04-19-2024 14:18-0400 Body weight 98.9 kg Tyler Draper MD Work Phone: [facility] 04-19-2024 14:18-0400 Diastolic blood pressure 66 mm[Hg] Tyler Draper MD Work Phone: [facility] 04-19-2024 14:18-0400 Heart rate 85 /min Tyler Draper MD Work Phone: [facility] 04-19-2024 14:18-0400 Respiratory rate 20 /min Tyler Draper MD Work Phone: [facility] 04-19-2024 14:18-0400 SaO2% (BldA) [Mass fraction] 92 % Tyler Draper MD Work Phone: [facility] 04-19-2024 14:18-0400 Systolic blood pressure 120 mm[Hg] Tyler Draper MD Work Phone: [facility] 03-09-2023 10:50-0400 Blood Pressure Location Oni MCKEON [facility] 03-09-2023 10:50-0400 Diastolic blood pressure 70 mm[Hg] Oni MCKEON [facility] 03-09-2023 10:50-0400 Heart rate 71 /min Oni MCKEON [facility] 03-09-2023 10:50-0400 Respiratory rate 16 /min Oni MCKEON [facility] 03-09-2023 10:50-0400 Systolic blood pressure 109 mm[Hg] Oni MCKEON [facility] 01-09-2022 13:00-0400 Body height 172.7 cm Hosea Herrera MD Work Phone: [facility] 01-09-2022 13:00-0400 Body temperature 97.81 [degF] Hosea Herrera MD Work Phone: [facility] 01-09-2022 13:00-0400 Body weight 100.61 kg Hosea Herrera MD Work Phone: [facility] 01-09-2022 13:00-0400 Diastolic blood pressure 68 mm[Hg] Hosea Herrera MD Work Phone: [facility] 01-09-2022 13:00-0400 Heart rate 93 /min Hosea Herrera MD Work Phone: [facility] 01-09-2022 13:00-0400 Respiratory rate 18 /min Hosea Herrera MD Work Phone: [facility] 01-09-2022 13:00-0400 SaO2% (BldA) [Mass fraction] 93 % Hosea Herrera MD Work Phone: [facility] 01-09-2022 13:00-0400 Systolic blood pressure 95 mm[Hg] Hosea Herrera MD Work Phone: [facility] 11-19-2021 10:19-0400 Blood Pressure Location Romeo Vidal Jr. [facility] 11-19-2021 10:19-0400 Diastolic blood pressure 60 mm[Hg] Romeo Vidal Jr. [facility] 11-19-2021 10:19-0400 Heart rate 80 /min Romeo Vidal Jr. [facility] 11-19-2021 10:19-0400 Respiratory rate 16 /min Romeo Vidal Jr. [facility] 11-19-2021 10:19-0400 Systolic blood pressure 113 mm[Hg] Romeo Vidal Jr. [facility] Encounters Encounter Date Encounter Type Care Provider Facility Start: 02-15-2026 ambulatory Marlys L Corwin Facility: [facility] Start: 04-24-2025 ambulatory Oni Victor ty:[facility] Start: 03-15-2025 End: 03-15-2025 ambulatory GIL ANGULO Not Available Start: 03-15-2025 End: 03-15-2025 Office outpatient new 30 minutes Gil D Dolce DPM FACFAS Work Phone: [facility] Comment on above: Venous insufficiency (chronic) (peripheral) (Primary Dx); Onychomycosis; Pain in left toe(s); Pain in right toe(s) Start: 03-15-2025 End: 03-15-2025 Bamboo flowsheet Gil D Dolce DPM FACFAS Work Phone: [facility] Start: 03-15-2025 End: 03-15-2025 Bamboo flowsheet Gil D Dolce DPM FACFAS Work Phone: [facility] Start: 03-07-2025 ambulatory Marlys L Corwin Facility: [id number] Start: 02-27-2025 ambulatory CONNOR [facility] Start: 02-16-2025 End: 02-16-2025 Lab Drop off Marlys L Corwin [facility] Start: 02-16-2025 End: 02-16-2025 ambulatory Marlys L Corwin Facility:[facility] Start: 02-15-2025 End: 02-15-2025 ambulatory Marlys L Corwin Facility:[facility] Start: 02-14-2025 ambulatory Pito Patterson Facility :[facility] Start: 02-02-2025 End: 02-02-2025 Bamboo flowsheet Crys Taylor PA Work Phone: [facility] Start: 02-02-2025 End: 02-02-2025 Bamboo flowsheet Crys Taylor PA Work Phone: [facility] Start: 02-02-2025 End: 02-02-2025 Office outpatient visit 25 minutes Crys Taylor PA Work Phone: [facility] Comment on above: Melanocytic nevus of trunk (Primary Dx); History of SCC (squamous cell carcinoma) of skin; Seborrheic keratosis; Actinic keratosis; Ayala angioma; Other seborrheic dermatitis Start: 02-02-2025 End: 02-02-2025 ambulatory CRYS TAYLOR Not Available Start: 12-21-[address] 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); History of prostate cancer; Acquired hypothyroidism Start: 11-15-2024 End: 11-15-2024 ambulatory TYLER DRAPER Facility:[facility] Start: 11-15-2024 End: 11-15-2024 Subsequent hospital visit by physician Arrival Time Radiology Work Phone: Radiology [facility] Comment on above: Localized enlarged l ymph nodes [R59.0] Start: 10-21-2024 End: 10-21-2024 ambulatory [facility] Start: 10-17-2024 End: 10-28-2024 ambulatory Pito Patterson Facility::[id number] Start: 10-14-2024 End: 10-14-2024 Telephone encounter Tyler Draper MD Work Phone: Hematology/Oncology Comment on above: Orders Start: 08-25-2024 End: 08-25-2024 ambulatory Pito Patterson Facility:[facility] Start: 08-04-2024 End: 08-04-2024 ambulatory CRYS TAYLOR Not Available Start: 08-04-2024 End: 08-04-2024 Office outpatient visit 15 minutes Crys Taylor PA Work Phone: [facility] Comment on above: Capillary angioma (P rimary Dx); Melanocytic nevus of trunk; Seborrheic keratosis; Actinic keratosis; History of SCC (squamous cell carcinoma) of skin; Lentigo simplex Start: 07-13-2024 End: 07-13-2024 ambulatory MARKUS CERNA Facility:[facility] Start: 06-20-2024 End: 06-20-2024 Bamboo flowsheet Connor Crawley DO Work Phone: [facility] [place] Start: 06-20-2024 End: 06-20-2024 Bamboo flowsheet Connor Crawley DO Work Phone: [facility] [place] Start: 06-20-2024 End: 06-20-2024 Office outpatient visit 15 minutes Connor Crawley DO Work Phone: [facility] [place] Comment on above: 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); Wound infection; Thyroid nodule (CMS/HCC) Start: 06-20-2024 End: 06-20-2024 ambulatory CONNOR CRAWLEY Not Available Start: 06-10-2024 End: 06-13-2024 Telephone encounter Valerie Mayes RN Hematology/Oncology Comment on above: Pet results Start: 06-09-2024 End: 06-09-2024 Bamboo flowsheet Connor Crawley DO Work Phone: [facility] [place] Start: 06-09-2024 End: 06-09-2024 Bamboo flowsheet Connor Crawley DO Work Phone: [facility] [place] Start: 06-09-2024 End: 06-09-2024 Postop follow [...] surgery center MD Pito Patterson Work Phone: [facility] [place] Start: 06-01-2024 End: 06-01-2024 ambulatory MD Pito Patterson Work Phone: [facility] Work Phone: Start: 05-31-2024 End: 05-31-2024 Office outpatient new 60 minutes Connor Crawley DO Work Phone: [facility] Comment on above: 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); 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 Start: 05-31-2024 End: 05-31-2024 ambulatory CONNOR CRAWLEY Not Available Start: 05-31-2024 End: 05-31-2024 Bamboo flowsheet Connor Crawley DO Work Phone: [facility] Start: 05-31-2024 End: 05-31-2024 Bamboo flowsheet Connor Klein Wanda DO Work Phone: [facility] Start: 05-17-2024 End: 05-17-2024 ambulatory Pito Patterson Facility:[facility] Start: 05-13-2024 End: 05-13-2024 ambulatory [facility] Start: 05-03-2024 End: 05-03-2024 Bamboo flowsheet Crys Northeim PA Work Phone: [facility] Start: 05-03-2024 End: 05-03-2024 Bamboo flowsheet Crys Northeim PA Work Phone: [facility] Start: 05-03-2024 End: 05-03-2024 Office outpatient new 20 minutes Crys Northeim PA Work Phone: [facility] Comment on above: Hemangioma of skin a nd subcutaneous tissue (Primary Dx); Neoplasm of unspecified behavior of bone, soft tissue, and skin; Seborrheic keratosis; Actinic keratosis Start: 05-03-2024 End: 05-03-2024 ambulatory CRYSKatey CLEARYEIM Not Available Start: 04-29-2024 End: 04-29-2024 ambulatory TYLER DRAPER Facility:[facility] Start: 04-29-2024 End: 04-29-2024 Subsequent hospital visit by physician Arrival Time Radiology Work Phone: Radiology [facility] CT Comment on above: History of lymphoma [Z85.72] Start: 04-26-2024 End: 04-26-2024 ambulatory CONNOR CARRERA [facility] Start: 04-22-2024 End: 04-22-2024 ambulatory Oni MCKEON Facility:[facility] Start: 04-22-2024 End: 04-22-2024 Patient encounter procedure Oni MCKEON [facility] Start: 04-19-2024 End: 04-19-2024 Patient encounter procedure Tyler Draper MD Work Phone: Hematology/Oncology Start: 04-19-2024 End: 04-19-2024 ambulatory Tyler Draper MD Work Phone: Hematology/Oncology Comment on above: 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); History of lymphoma; Lymph node enlargement; Skin lesion of face Start: 04-19-2024 End: 04-26-2024 Telephone encounter [facility] Comment on above: Future Appointment Start: 02-02-2024 Telephone encounter Valerie Wallace Hematology/Oncology Comment on above: Results Start: 01-21-2024 End: 01-21-2024 ambulatory PITO PATTERSON Facility:[facility] Start: 10-19-2023 End: 10-19-2023 Lab Drop off Pito Patterson [facility] Start: 03-31-2023 End: 03-31-2023 Patient encounter procedure Oni MCKEON [facility] Start: 03-09-2023 End: 03-09-2023 Patient encounter procedure Oni MCKEON [facility] Start: 01-26-2023 End: 01-26-2023 Lab Drop off Marlys Olivia [facility] Start: 08-05-2022 Telephone encounter Aby Hernandez RN Hematology/Oncology Comment on above: Results Start: 07-24-2022 Telephone encounter Tyler cadena MD [facility] Comment on above: Appointment Start: 04-22-2022 [...] Vidal Jr. [facility] Start: 09-24-2021 End: 09-25-[address] [...] Evaluation and management of inpatient CRESCENCIO FLETCHER Facility:[facility] Procedures Date Procedure Procedure Detail Performing Clinician Start: 02-02-2025 CRYOTHERAPY SKIN LESION Crys Taylor PA Work Phone: Start: 11-15-2024 Ct thorax w/contrast material Tyler Draper MD Work Phone: Start: 11-15-2024 Blood count complete auto&auto difrntl wbc Arabella Nalini STAFF TRAINER.AD[employer]ISTRATIVE [employer] Work Phone: Start: 08-04-2024 CRYOTHERAPY SKIN LESION [...] use [facility] Provider Start: 03-31-2023 Cystoscopy Oni LEATHA DURAN Start: 01-09-2022 Adult depression scr eening assessment Hosea Herrera MD Work Phone: Start: 01-07-[address] WILL MILLST Comment on above: Performed By: #### P SAD ####[place] [id number] [place] [id number]. Trevor Simone Start: 06-28-2020 INSERT PACE. DUAL [...] DTaP,Tdap,Td Vaccine (2 - Td or Tdap) [facility] Start: 11-16-2027 Diabetes Screening Diabetes Screening [facility] Start: 04-19-2027 Diabetes Screening Diabetes Screening [facility] Start: 01-20-2027 Diabetes Screening Diabetes Screening [facility] Start: 08-03-2025 End: 08-03-2025 Patient encounter procedure [facility] Start: 07-18-2025 DIABETES SCREEN DIABETES SCREEN [facility] Start: 05-29-2025 End: 05-29-2025 Follow-up encounter 05/29/2025 3:00 PM EDT Visit (SP) Office Hematology/Oncology [address] [place] [address] Ginger Bean APRN.ADMINISTRATIVE [employer] [address] [place] [address] 6 month follow up / BRM pt Hematology/Oncology Comment on above: 6 month follow up / BRM pt Start: 05-24-2025 End: 05-24-2025 Patient encounter procedure 05/24/2025 3:10 PM EDT Procedure Visit [facility] [address] [place] [phone] Gil Angulo, DPM FACFAS [address] [place] [address] [facility] Start: 05-22-2025 End: 05-22-2025 Patient encounter procedure 05/22/2025 3:30 PM EDT Office Visit [facility] [address] [place] [address] 6 month lab [facility] Comment on above: 6 month lab Start: 04-17-2025 Influenza vaccination Influenza Vaccine (#1) [facility] Start: 02-02-2025 End: 02-02-2025 Patient encounter procedure [facility] Comment on above: Arrived Start: 01-09-2025 DIABETES SCREEN DIABETES SCREEN [facility] Start: 11-21-2024 End: 11-21-2024 Follow-up encounter 11/21/2024 3:20 PM EDT Visit (SP) Office Hematology/Oncology [address] [place] [address] Tyler Draper MD [address] [place] [address] 6 Month follow up with lab Hematology/Oncology Comment on above: 6 Month follow up with lab Start: 11-21-2024 End: 11-21-2024 Patient encounter procedure 11/21/2024 3:00 PM EDT Office Visit [facility] [address] [place] [address] 6 Month follow up with lab [facility] Comment on above: 6 Month follow up with lab Start: 11-15-2024 End: 02-14-2025 CBC W Auto Differential panel - Blood COMPLETE BLOOD COUNT AND DIFFERENTIAL Lab Routine Diffuse large B-cell lymphoma, unspecified body region (HCC) Expected: 11/15/2024 (Approximate), Expires: 02/14/2025 [facility] Comment on above: Expected: 11/15/2024 (Approximate), Expi res: 02/14/2025 Start: 11-15-2024 End: 02-14-2025 Comprehensive metabolic 2000 panel - Serum or Plasma COMPREHENSIVE METABOLIC PANEL Lab Routine Diffuse large B-cell lymphoma, unspecified body region (HCC) Expected: 11/15/2024 (Approximate), Expires: 02/14/2025 [facility] Work Phone: Comment on above: Expected: 11/15/2024 (Approximate), Expi res: 02/14/2025 Start: 11-15-2024 End: 07-10-2025 CT Chest W contrast IV CT CHEST W IVCON Radiology Routine Localized enlarged lymph nodes Expected: 11/15/2024, Expires: 07/10/2025 [facility] Work Phone: Comment on above: Expected: 11/15/2024, Expires: Start: 11-15-2024 End: 02-14-2025 MONOCLONAL PROTEIN, SERUM (BLOOD) [facility] Comment on above: Expected: 11/15/2024 (Approximate), Expi res: 02/14/2025 Start: 11-15-2024 End: 02-14-2025 PROTEIN ELECTROPHORESIS SERUM W/INTERP [facility] Comment on above: Expected: 11/15/2024 (Approximate), Expi res: 02/14/2025 Start: 11-15-2024 End: 11-15-2024 Patient encounter procedure Radiology Pet CT Comment on above: CT Chest with IVC Start: 11-09-2024 Covid-19 Vaccine (7 - Pfizer risk ) Covid-19 Vaccine (7 - Pfizer risk ) [facility] Start: 08-17-2024 Advance Directive Discussion Advance Directive Discussion [facility] Start: 08-04-2024 End: 08-04-2024 Patient encounter procedure 08/04/2024 1:00 PM EST Office Visit [facility] [address] [place] [phone] Crys Taylor PA [address] [place] [phone] [facility] Start: 07-07-2024 Covid-19 Vaccine () Covid-19 Vaccine () [facility] Start: 06-28-2024 End: 06-28-2024 Patient encounter procedure 06/28/2024 1:00 PM EST Office Visit [facility] [address] [place] [phone] Chiki Malone MD [address] [place] [address] [facility] Start: 06-20-2024 End: 06-20-2024 Patient encounter procedure 06/20/2024 8:45 AM EST Office Visit [facility] [place] [address] [place] [phone] Connor Crawley DO [address] [place] [address] Arrived [facility] [place] Comment on above: Arrived Start: 06-17-2024 End: 06-17-2024 Patient encounter procedure 06/17/2024 1:15 PM EDT Office Visit [facility] [place] [address] [place] [phone] Connor Crawley, DO [address] [place] [address] [facility] [place] Start: 06-09-2024 End: 06-09-2024 Patient encounter procedure [facility] [place] Comment on above: Arrived Start: 06-06-2024 End: 06-06-2024 Follow-up encounter 06/06/2024 1:45 PM EDT Visit (SP) Office Hematology/Oncology [address] [place] [address] Tyler Draper MD [address] [place] [address] 6 week follow up Hematology/Oncology Comment on above: 6 week follow up Start: 06-06-2024 End: 06-06-2024 Patient encounter procedure 06/06/2024 1:30 PM EDT Office Visit [facility] [address] [place] [phone] 6 week follow up [facility] Comment on above: 6 week follow up Start: 06-01-2024 [facility] Start: 05-31-2024 End: 05-31-2024 Patient encounter procedure 05/31/2024 2:30 PM EDT Office Visit [facility] [address] [place] [phone] Connor Crawley, DO [address] [place] [address] 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 [facility]FIAErnie [facility] [place] Comment on above: Squamous cell cancer of skin of left vibha ek Start: 05-03-2024 End: 05-03-2024 Patient encounter procedure 05/03/2024 11:00 AM EDT Office Visit [facility] [address] [place] [address] Crys Taylor PA [address] [place] [address] Arrived [facility] Comment on above: Arrived Start: 04-29-2024 End: 04-29-2024 Patient encounter procedure 04/29/2024 1:30 PM EDT Appointment Radiology Pet CT [address] [place] [address] Comment on above: Pet scan Start: 04-19-2024 End: 04-19-2024 ambulatory 04/19/2024 2:30 PM EDT Visit (SP) Office Hematology/Oncology [address] [place] [address] Tyler Draper MD [address] [place] [address] 6 month lab Hematology/Oncology Comment on above: 6 month lab Start: 04-19-2024 End: 04-19-2024 Patient encounter procedure 04/19/2024 2:15 PM EDT Office Visit [facility] [address] [place] [address] 6 month lab [facility] Comment on above: 6 month lab Start: 04-19-2024 End: 07-19-2024 MONOCLONAL PROTEIN, SERUM (BLOOD) [facility] Comment on above: Expected: 04/19/2024, Expires: 4 Start: 04-19-2024 End: 07-19-2024 PROT ELECT SERUM WITH CARSON AND INTERP [facility] Work Phone: Comment on above: Expected: 04/19/2024, Expires: 4 Start: 04-17-2024 Covid-19 Vaccine () Covid-19 Vaccine () [facility] Start: 04-17-2024 Influenza vaccination Influenza Vaccine (#1) [facility] Start: 08-27-2023 Covid-19 Vaccine () Covid-19 Vaccine () [facility] Start: 08-17-2023 Advance Directive Discussion Advance Directive Discussion [facility] Start: 08-17-2023 Behavioral Health Screening Behavioral Health Screening [facility] Start: 01-09-2023 Adult depression screening assessment DEPRESSION SCREENING [facility] Start: 07-18-2022 End: 09-17-2022 CBC panel - Blood by Automated count CBC Lab Routine MGUS (monoclonal gammopathy of unknown significance) Expected: 07/18/2022 (Approximate), Expires: 09/17/2022 [facility] Work Phone: Comment on above: Expected: 07/18/2022 (Approximate), Expi res: 09/17/2022 Start: 07-18-2022 End: 09-17-2022 Comprehensive metabolic 2000 panel - Serum or Plasma COMP METABOLIC PANEL Lab Routine MGUS (monoclonal gammopathy of unknown significance) Expected: 07/18/2022 (Approximate), Expires: 09/17/2022 [facility] Work Phone: Comment on above: Expected: 07/18/2022 (Approximate), Expi res: 09/17/2022 Start: 07-18-2022 End: 09-17-2022 MONOCLONAL PROTEIN, SERUM (BLOOD) MONOCLONAL PROTEIN, SERUM (BLOOD) Lab Routine MGUS (monoclonal gammopathy of unknown significance) Expected: 07/18/2022 (Approximate), Expires: 09/17/2022 [facility] Work Phone: Comment on above: Expected: 07/18/2022 (Approximate), Expi res: 09/17/2022 Start: 07-18-2022 End: 09-17-2022 PROTEIN ELECTROPHORESIS SERUM W/INTERP PROTEIN ELECTROPHORESIS SERUM W/INTERP Lab Routine MGUS (monoclonal gammopathy of unknown significance) Expected: 07/18/2022 (Approximate), Expires: 09/17/2022 [facility] Work Phone: Comment on above: Expected: 07/18/2022 (Approximate), Expi res: 09/17/2022 Start: 05-06-2022 COVID-19 VACCINE (5 - Booster for Pfizer series) COVID-19 VACCINE (5 - Booster for Pfizer series) [facility] Start: 04-17-2022 Influenza vaccination INFLUENZA (#1) [facility] Start: 09-25-2021 COVID-19 VACCINE (4 - Booster for Pfizer series) COVID-19 VACCINE (4 - Booster for Pfizer series) [facility] Start: 08-17-2021 ADVANCE DIRECTIVE DISCUSSION ADVANCE DIRECTIVE DISCUSSION [facility] Start: 08-17-2021 DEPRESSION ASSESSMENT DEPRESSION ASSESSMENT [facility] Start: 2007 RSV Vaccine (1 - 1-dose 60+ series) RSV Vaccine (1 - 1-dose 60+ series) [facility] Start: 1997 SHINGRIX VACCINE (1 of 2) SHINGRIX VACCINE (1 of 2) [facility] Start: 1992 COLOGUARD (FIT-DNA) COLOGUARD (FIT-DNA) [facility] Start: 1992 Colonoscopy COLONOSCOPY [facility] Start: 1992 COLORECTAL CANCER SCREENING COLORECTAL CANCER SCREENING [facility] Start: [address] COLONOGRAPHY [facility] Start: 1992 FECAL OCCULT BLOOD FECAL OCCULT BLOOD [facility] Start: 1992 SIGMOIDOSCOPY SIGMOIDOSCOPY [facility] Start: 1982 LIPID SCREEN LIPID SCREEN [facility] Start: 1966 SHINGRIX VACCINE (1 of 2) SHINGRIX VACCINE (1 of 2) [facility] Start: 1966 Urine microalbumin profile DTAP,TDAP,TD (1 - Tdap) [facility] Start: 1965 Anxiety Screening Anxiety Screening [facility] Start: 1965 Depression Screening Depression Screening [facility] Start: 1965 HEPATITIS C SCREENING HEPATITIS C SCREENING [facility] Start: 1965 Hepatitis C screening Hepatitis C Screening [facility] Start: 1947 ABDOMINAL AORTIC ANEURYSM SCREENING ABDOMINAL AORTIC ANEURYSM SCREENING [facility] Start: 1947 Medicare Annual Wellness (AWV) Medicare Annual Wellness (AWV) [facility] CBC W Auto Different ial panel - Blood CBC + DIFF Lab Routine B12 deficiency Diffuse large B-cell lymphoma, unspecified body region (HCC) 01/09/2022 1:40 PM EDT [facility] Work Phone: Dermatopathology exam Dermatopat hology exam Pathology and Cytology Timed Neoplasm of unspecified behavior of bone, soft tissue, and skin Release Upon Ordering for 1 Occurrences starting 05/03/2024 [facility] Work Phone: Comment on above: Release Upon Ordering for 1 Occurrences starting 05/03/2024 End: 11-15-2024 IMMUNOFIXATION SCREEN, SERUM [facility] Comment on above: Once for 1 Occurrences starting 11/16/19 until 11/15/2024 End: 11-15-2024 IMMUNOGLOBULINS,IGG,IGA,I GM [facility] Comment on above: Once for 1 Occurrences starting 11/16/19 until 11/15/2024 End: 11-15-2024 KAPPA/ARDON,FREE,SER [facility] Comment on above: Once for 1 Occurrences starting 11/16/19 until 11/15/2024 Patient Education Know your Meds [facility] Work Phone: Patient referral [facility] Work Phone: End: 05-19-2025 PET+CT Guidance for localization of tumor of Skull base to mid-thigh-- W 18F-FDG IV NM PET/CT SKULL-THIGH SUBSEQUENT Radiology Routine History of lymphoma Lymph node enlargement 1 Occurrences starting 04/19/2024 until 05/19/2025 [facility] Comment on above: 1 Occurrences starting 04/19/2024 until 05/19/2025 PET+CT Guidance for localization of tumor of Skull base to mid-thigh-- W 18F-FDG IV NM PET/CT SKULL-THIGH SUBSEQUENT Radiology Routine History of lymphoma Lymph node enlargement 04/29/2024 3:28 PM EDT [facility] Work Phone: End: 11-15-2024 PROTEIN ELECTROPHORESIS SERUM (P) [facility] Work Phone: Comment on above: Once for 1 Occurrences starting 11/16/19 until 11/15/2024 [facility] Immunizations Immunization Date Immunization Notes Care Provider Eric garcia 05-12-2024 influenza, high dose seasonal, preservative-free Connor Crawley DO Work Phone: [facility] 05-12-2024 SARS-CoV-2 mRNA (tozinameran 5y-11y) vaccine Marlys Corwin [facility] Comment on above: Result Comment: COvi d 19 mRNA, LN-S pfizer trus sucrose 05-12-2024 influenza virus vaccine, unspecified formulation Connor Crawley DO Work Phone: [facility] 03-21-2024 canakinumab Oni MCKEON [facility] Comment on above: Result Comment: RSV 03-21-2024 respiratory syncytia l virus (RSV) vaccine, adjuvanted (AREXVY) Tyler Draper MD Work Phone: [facility] 03-21-2024 RSV vaccine preF3, recombinant Marlys Corwin [facility] 07-02-2023 SARS-CoV-2 mRNA (tozinameran 5y-11y) vaccine Pito Patterson [facility] Comment on above: Result Comment: covi d 19 eneida sucrose pfizer 05-11-2023 influenza, high dose seasonal, preservative-free Pito Patterson [facility] 05-11-2023 influenza virus vaccine, unspecified formulation Tyler Draper MD Work Phone: [facility] 03-11-2022 SARS-CoV-2 mRNA (cktyksgyxai-qqiy-fuliy se) vaccine Marlys Corwin [facility] 06-25-2021 SARS-CoV-2 (COVID-19 ) mRNA BNT-162b2 vax Marlys Corwin [facility] 05-24-2021 influenza (HD-IIV4) vaccine, age 65+ yr, high dose, quadrivalent, PF (FLUZONE HIGH-DOSE) Tyler Draper MD Work Phone: [facility] 05-24-2021 influenza virus vaccine, unspecified formulation Marlys Corwin [facility] 11-13-2020 COVID-19 vaccine, ag e 12+ yr (PFIZER-BIONTECH - PURPLE TOP) Hosea Herrera MD Work Phone: [facility] 10-22-2020 COVID-19 vaccine, ag e 12+ yr (PFIZER-BIONTECH - PURPLE TOP) Hosea Herrera MD Work Phone: [facility] 07-24-2020 zoster vaccine recombinant Marlys Corwin [facility] 07-22-2020 zoster vaccine recombinant Tyler Draper MD Work Phone: [facility] 05-09-2020 influenza (HD-IIV4) vaccine, age 65+ yr, high dose, quadrivalent, PF (FLUZONE HIGH-DOSE) Tyler Draper MD Work Phone: [facility] 05-09-2020 influenza virus vaccine, unspecified formulation Marlys Corwin [facility] 05-09-2020 tetanus toxoid, redu juvencio diphtheria toxoid, and acellular pertussis vaccine, adsorbed Marlys Corwin [facility] 05-09-2020 zoster vaccine recombinant Marlys Corwin [facility] 04-16-2019 influenza virus vaccine, unspecified formulation Marlys Corwin [facility] 04-16-2019 Seasonal trivalent influenza vaccine, adjuvanted, preservative free Tyler Draper MD Work Phone: [facility] 05-25-2018 influenza nasal, unspecified formulation Tyler Draper MD Work Phone: [facility] 05-25-2018 influenza virus vaccine, unspecified formulation Marlys Corwin [facility] 05-25-2018 influenza, injectabl e, quadrivalent, preservative free Hosea Herrera MD Work Phone: [facility] 05-25-2018 pneumococcal polysaccharide vaccine, 23 valent Hosea Herrera MD Work Phone: [facility] 04-26-2018 influenza nasal, unspecified formulation Tyler Draper MD Work Phone: [facility] 04-26-2018 influenza virus vaccine, unspecified formulation Marlys Corwin [facility] 04-26-2018 influenza, high dose seasonal, preservative-free Hosea Herrera MD Work Phone: [facility] 04-26-2018 pneumococcal polysaccharide vaccine, 23 valent Hosea Herrera MD Work Phone: [facility] 08-04-2017 influenza nasal, unspecified formulation Tyler Draper MD Work Phone: [facility] 08-04-2017 influenza virus vaccine, unspecified formulation Marlysajith Appiahab [facility] 08-04-2017 influenza, high dose seasonal, preservative-free Hosea Herrera MD Work Phone: [facility] 08-04-2017 pneumococcal conjuga te vaccine, 13 valent Hosea Herrera MD Work Phone: [facility] influenza vaccine qs 240 mcg, Patients 65 years and older,, PF, (FLUZONE HIGHDOSE QUAD 20-21 PF) 240 mcg/0.7 mL injection Hosea Herrera MD Work Phone: [facility] Comment on above: Fluzone High-Dose Qu ad 2020- (PF) 240 mcg/0.7 mL IM syringe PHARMACY ADMINISTERED influenza vaccine qs 240 mcg, Patients 65 years and older,, PF, (FLUZONE HIGHDOSE QUAD 20-21 PF) 240 mcg/0.7 mL injection Tyler Draper MD Work Phone: [facility] Comment on above: Fluzone High-Dose Qu ad 2020-21 (PF) 240 mcg/0.7 mL IM syringe PHARMACY ADMINISTERED influenza vaccine qs 240 mcg, Patients 65 years and older,, PF, (FLUZONE HIGHDOSE QUAD 20-21 PF) 240 mcg/0.7 mL injection Valerie Mayes RN [facility] influenza vaccine qs 240 mcg, Patients 65 years and older,, PF, (FLUZONE HIGHDOSE QUAD 20-21 PF) 240 mcg/0.7 mL injection Tyler Draper MD Work Phone: [facility] influenza vaccine qs 240 mcg, Patients 65 years and older,, PF, (FLUZONE HIGHDOSE QUAD 20-21 PF) 240 mcg/0.7 mL injection Tyler Draper MD Work Phone: [facility] influenza vaccine qs 240 mcg, Patients 65 years and older,, PF, (FLUZONE HIGHDOSE QUAD 20-21 PF) 240 mcg/0.7 mL injection [facility] Work Phone: [facility] Payers Date Payer Category Payer Medicare (Managed Care) 1.2. [id number] 2022 Private Health Insurance [id number] 2014 Medicare AETNA MEDICARE A ETNA MEDICARE PPO [id number] 2014-Present [phone] [address] [place] [address] PPO [id number] 2012 Medicare [id number] 2012 Medicare [id number] 1959 Medicare [id number] 1959 Private Health Insurance [facility] [id number] Self-pay 1945 Unknown [id number] 2.16.840.1.488821.3.579.2. 647 1945 Unknown [id number] 2.16.840.1.850278.3.579.2. 593 1947 Unknown [id number] 2.16.840.1.930352.3.579.2. 593 1947 Unknown [id number] 2.16.840.1.866274.3.579.2. 593 1947 Unknown [id number] 2.16.840.1.162960.3.579.2. 593 1947 Unknown [id number] 2.16.840.1.090948.3.579.2. 593 1947 Unknown [id number] 2.16.840.1.048087.3.579.2. 593 1947 Unknown [id number] 2.16.840.1.126263.3.579.2. 593 1947 Unknown [id number] 2.16.840.1.276727.3.579.2. 593 1947 Unknown [id number] 2.16.840.1.500709.3.579.2. 593 1947 Unknown [id number] 2.16.840.1.617052.3.579.2. 593 1947 Unknown [id number] 2.16.840.1.853192.3.579.2. 593 1947 Unknown [id number] 2.16.840.1.424139.3.579.2. 593 1947 Unknown [id number] 2.16.840.1.477281.3.579.2. 593 1947 Unknown [id number] 2.16.840.1.842694.3.579.2. 593 1947 Unknown [id number] 2.16.840.1.708562.3.579.2. 593 1947 Unknown [id number] 2.16.840.1.606477.3.579.2. 593 1947 Unknown [id number] 2.16.840.1.858444.3.579.2. 593 1947 Unknown [id number] 2.16.840.1.050004.3.579.2. 593 1947 Unknown [id number] 2.16.840.1.430083.3.579.2. 593 1947 Unknown [id number] 2.840.1.860746.3.579.2. 593 1947 Unknown [id number] 2.840.1.680642.3.579.2. 72 1947 Unknown [id number] 2..840.1.077830.3.579.2. 72 1947 Unknown [id number] 2.16.840.1.505336.3.579.2. 72 1947 Unknown [id number] 2.840.1.645924.3.579.2. 727 1947 Unknown [id number] 2.16840.1.967485.3.579.2. 727 1947 Unknown [id number] 2.16.840.1.699508.3.579.2. 727 1947 Unknown [id number] 2.16.840.1.476103.3.579.2. 72 1947 Unknown [id number] 2.16.840.1.965034.3.579.2. 727 1947 Unknown [id number] 2.16.840.1.744650.3.579.2. 727 1947 Unknown [id number] 2.840.1.970513.3.579.2. 727 1947 Unknown [id number] 2.16840.1.151246.3.579.2. 727 1947 Unknown [id number] 2.840.1.665518.3.579.2. 72 1947 Unknown [id number] 2.840.1.089868.3.579.2. 727 1947 Unknown [id number] 2.0.1.259294.3.579.2. 125 1947 Unknown [id number] 2.0.1.379447.3.579.2. 1259 1947 Unknown [id number] 2.0.1.742958.3.579.2. 125 1947 Unknown [id number] .0.1.985448.3.579.2. 125 1947 Unknown [id number] .0.1.157373.3.579.2. 1258 1947 Unknown [id number] 2.0.1.813880.3.579.2. 125 1947 Unknown [id number] .0.1.315249.3.579.2. 1259 Medicare Medicare Outpatient [id number] Unknown [id number] .0.1.480909.3.579.2. 593 Unknown Karl STAHL/ABHILASH [id number] Unknown [id number] 840.1.814302.3.579.2. 531 Social History Date Type Detail Facility Start: 11-19-2021 End: 05-03-2024 Tobacco smoking status Ex-smoker (finding) [facility] Comment on above: Patient states he sm oked cigarettes, 1 PPD from about 22 years old until about 42 years old. denies use. Former s moker. Quit 1987. Start: 07-30-2023 End: 03-15-2025 Sex Assigned At Male [facility] Start: 09-06-1968 End: 09-06-1988 History of tobacco use Current smoker [facility] Start: 09-06-2012 End: 03-15-2025 Cigarettes smoked current (pack per day) - Reported 1 [facility] Start: 09-06-2012 End: 05-03-2024 Tobacco use and exposure Smokeless tobacco non-user [facility] Start: 01-09-2022 End: 11-21-2024 Alcohol intake Current drinker of alcohol (finding) [facility] Start: 04-05-2019 History SDOH Alcohol Comment rare [facility] Start: 1945 Sex Assigned At Not on file C [facility] Start: 12-30-2021 End: 01-09-2022 Exposure to SARS-CoV-2 (event) Not sure [facility] Start: 09-06-1968 End: 09-06-1988 History of tobacco use Cigarette Smoker [facility] History of tobacco use Passive smoker [facility] Tobacco smoking status Never [facility] Comment on above: Patient states he sm oked cigarettes, 1 PPD from about 22 years old until about 42 years old. denies use. Former s moker. Quit 1987. Start: 05-03-2024 End: 03-15-2025 Alcoholic beverage intake Defer [facility] Start: 1945 Sex Assigned At Male F [facility] Tobacco smoking stat us NHIS Tobacco smoking consumption unknown [facility] Sexual Orientation [facility] Start: 11-01-2016 Sex Male (finding) [facility] NEGATED: Highlighted rowStart: NINF History of tobacco use Passive smoker [facility] Goals Date Patient Goal Desired Activity /State Functional Status Date Assessment Result Facility 04-22-2024 Functional Status N/A [facility] 03-09-2023 Functional Status N/A [facility] 02-19-2015 Are you deaf, or do you have serious difficulty hearing No 02/19/2015 11:13 AM Otilia Mejía [facility] 02-19-2015 Are you blind, or do you have serious difficulty seeing, even when wearing glasses No 02/19/2015 11:13 AM EDT Otilia Martin No [facility] 02-19-2015 Do you have serious difficulty walking or climbing stairs No 02/19/2015 11:13 AM Otilia Mejía [facility] 02-19-2015 Do you have difficul ty dressing or bathing Yes 02/19/2015 11:13 AM Otilia Mejía Yes [facility] 02-20-2014 Because of a physica l, mental, or emotional condition, do you have difficulty doing errands alone such as visiting a physician's office or shopping No 02/20/2014 11:24 AM Otilia Mejía [facility] Mental Status Date Assessment Result Facility 02-19-2015 Because of a physica l, mental, or emotional condition, do you have serious difficulty concentrating, remembering, or making decisions No 02/19/2015 11:13 AM Otilia Mejía [facility] Clinical Notes 11-19-2021 to 03-15-2025 Gil Angulo DPM FACFAS - 03/15/2025 2:30 PM MARY Haynse - 02/02/2025 1:20 PM EDTTelephone Encounter - Valerie Mayes RN - 11/24/2024 11:51 AM Yolanda Cunha MA - 11/21/2024 3:08 PM EDT Note Date & Type Note Facility 03-15-2025 History of Present illness Narrative Images from the original note were not included. patient: Chiki Juarez : 1945 PCP: Elpidio Wing MD SUBJECTIVE This is a 79 y.o. male that presents today with a chief complaint of painful elongated nails digits 1 through 10. They cause marked limitation in ambulation due to pain and pressure from shoe gear. Allergies: Allergies Allergen Reactions Latex Rash Past Medical History: Active Ambulatory Problems Diagnosis Date Noted No Active Ambulatory Problems Resolved Ambulatory Problems Diagnosis Date Noted Abnormal CT scan 07/02/2023 Asthma-chronic obstructive pulmonary disease overlap syndrome (HCC) 05/21/2023 B12 deficiency 07/13/2017 Benign essential tremor 07/31/2021 Benign prostatic hyperplasia with urinary obstruction 05/21/2023 Bilateral leg edema 08/06/2022 Cardiac pacemaker in situ 05/23/2022 Cerebrovascular accident (CVA) ([facility]) 08/03/2020 Chronic diastolic heart failure (HCC) 07/28/2023 Chronic hypoxic respiratory failure (HCC) 04/15/2024 Chronic kidney disease, stage 3a (CMS-HCC) 04/15/2024 Chronic sinusitis 07/02/2023 Complete atrioventricular block (HCC) 08/03/2020 Cough 07/17/2021 Decreased ambulation status 09/09/2023 B-cell lymphoma (HCC) 11/23/2018 Diffuse large B cell lymphoma (HCC) 02/21/2013 Dyspnea 07/17/2021 Edema of both upper arms 07/02/2023 Former smoker 05/21/2023 Hearing loss 05/21/2023 High prostate specific antigen (PSA) 05/21/2023 History of B-cell lymphoma 05/21/2023 History of cerebrovascular accident 05/23/2022 History of lymphoma 05/31/2024 History of malignant neoplasm of prostate 05/21/2023 Hyperglycemia 05/31/2024 Hypoxia 11/23/2018 Hypothyroidism 11/23/2018 Kidney stone 05/21/2023 Left temporal lobe infarction (HCC) 08/03/2020 Lymphoma (HCC) 05/21/2023 Macrocytic anemia 05/31/2024 Malignant neoplasm of prostate (HCC) 05/21/2023 Mass of leg 04/15/2024 MGUS (monoclonal gammopathy of unknown significance) 09/09/2023 Microscopic hematuria 05/21/2023 Mixed hyperglyceridemia 05/23/2022 Moderate persistent asthma without complication (HCC) 05/31/2024 Nasal congestion 05/21/2023 Neuropathy, arm 05/21/2023 JUANA (obstructive sleep apnea) 04/15/2024 Other chronic pain 05/31/2024 Compression fracture of thoracic vertebra with routine healing 05/31/2024 Poor urinary stream 05/21/2023 Prostate nodule 05/21/2023 Pulmonary hypertension (HCC) 07/02/2023 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HHS-HCC) 07/02/2023 Recurrent pneumonia 07/17/2021 Obesity due to excess calories 05/31/2024 Severe obesity (BMI 35.0-39.9) with comorbidity ([facility]) 08/03/2020 Ventral hernia 05/21/2023 Wheezing 07/02/2023 Past Medical History: Diagnosis Date Cancer (HCC) Medications: Current Outpatient Medications: acetaminophen-codeine (Tylenol w/ Codeine #3) 300-30 MG tablet, , Disp: , Rfl: albuterol (2.5 MG/3ML) 0.083% nebulizer solution, , Disp: , Rfl: albuterol HFA 90 mcg/act inhaler, Inhale 2 puffs Daily as needed, Disp: , Rfl: aspirin 81 MG EC tablet, Take 81 mg by mouth in the morning., Disp: , Rfl: azelastine (Astelin) 0.1 % nasal spray, Administer 1 spray into affected nostril(s) in the morning and 1 spray in the evening., Disp: , Rfl: budesonide (Pulmicort) 0.5 MG/2ML nebulizer solution, , Disp: , Rfl: budesonide (Pulmicort) 1 MG/2ML [...] 1,000 Units by mouth, Disp: , Rfl: Ciclopirox 1 % shampoo, Lather on wet hair, leave on 5 min, rinse 2-3 x week, 30 day supply, Disp: 120 mL, Rfl: 11 Cyanocobalamin (Vitamin B 12) 100 MCG lozenge, , Disp: , Rfl: cyanocobalamin (Vitamin B-12) 1000 MCG tablet, Take 1,000 mcg by mouth in the morning., Disp: , Rfl: doxycycline (Vibramycin) 100 MG capsule, Take 100 mg by mouth in the morning., Disp: , Rfl: Fluticasone-Salmeterol 500-50 MCG/ACT aerosol powder , 1 puff every 12 (twelve) hours, Disp: , Rfl: furosemide (Lasix) 40 MG [...] chloride 7 % nebulizer solution nebulizer solution, , Disp: , Rfl: Spiriva HandiHaler 18 MCG inhalation capsule, , Disp: , Rfl: spironolactone (Aldactone) 50 MG tablet, , Disp: , Rfl: Tezspire 210 MG/1.91ML solution auto-injector, , Disp: , Rfl: Review of systems: Constitutional: Denies fever, chills, nausea, vomiting GI: Denies abdominal pain, cramping, loose stool, gastric ulcers Musculoskeletal: Denies low back pain, knee pain, systemic arthritis Neurologic: Denies burning, tingling, transient paralysis OBJECTIVE Physical Examination: DERM: Positive hair growth to b/l feet with good skin turgor noted. Negative openings in skin. No macerations noted interdigitally. Web spaces were clean and dry. No ulcerations were noted. Venous stasis disease noted bilaterally Nails 1 through 10 were thickened elongated yellow and crumbly with subungual debris. They were painful to palpation 28944 on the right 39579 on the left. VASC: DP /PT were nonpalpable bilateral. Capillary refill time < 3 seconds Digits 1-5 bilateral NEURO: Batchelor Jerson 5.07 monofilament was intact B/L. Vibratory sensation was intact B/L Musculoskeletal: Muscle strength was +5 over 5 all intrinsic and extrinsic muscles tested. Radiographs: AP/MO/LAT: Diagnostic ultrasound: ASSESSMENT 1. Onychomycosis 2. Pain in left toe(s) 3. Pain in right toe(s) 4. Venous insufficiency (chronic) (peripheral) PLAN The patient was educated on proper foot care as well as the etiology of onychomycosis. I educated the patient on proper shoe gear as well. Today the nails were debrided both in length and thickness 1 through 10. Educated the patient on venous stasis disease. I recommended elevation and compression stockings which she currently has a home he was to wear them on a daily basis and follow up with me in 3 months for reexamination. RUTH Garcia documented in this encounter [facility] 02-15-2025 Note Patient Education Endocrinology Hypothyroidism Hypothyroidism [...] Follow these instructions at home: ??? Take [id number] and prescription medicines only as told by [...] provider. Document Revised: 08/05/2022 Document Reviewed: 08/05/2022 [employer] Patient Education ? 2023 [employer]. Screening for Type 2 Diabetes A screening test for type 2 diabetes (type 2 diabetes mellitus) is a blood test to measure your blood sugar (glucose) level. This test is done to check for early signs of diabetes, before you develop symptoms (more content not included)... [facility] 02-02-2025 History of Present illness Narrative Skin [...] limited to risks of scarring, darker or precision lens technician pigmentary changes, recurrence, incomplete removal and [...] Visit: 6 months documented in this encounter [facility] 11-24-2024 Telephone encounter Note Pt notified of BRM message below. She is agreeable to follow up with PCP, to discuss US. She denies any questions, needs or concerns at this time. Labs faxed to PCP, Dr Navarro Mayes, RN [facility] 11-24-2024 Miscellaneous Notes Pt notified of BRM message below. She is agreeable to follow up with PCP, to discuss US. She denies any questions, needs or concerns at this time. Labs faxed to PCP, Dr Navarro Mayes, RN documented in this encounter [facility] 11-21-2024 Note HNO ID: [id number] Author: YOLANDA MONTAGUE MA Service: ? Author Type: Manager Eligibility Type: Progress Notes Filed: 11/23/2024 09:37 Note Text: Pt very short of breath. Has oxygen at home. But declined using our oxygen.Yolanda Montague MA [facility] 11-21-2024 History of Present illness Narrative Pt very short of breath. Has oxygen at home. But declined using our oxygen.Yolanda Montague MA PATIENT NAME: Chiki Juarez DATE: 11/21/2024 PRIMARY [...] or inguinal regions. PATHOLOGY: 06/01/2024 Skin resection ([facility]) A. Skin lesion from [...] active disease. 02/01/2024 Bilateral lower extremity Doppscan ([facility]) The RIGHT lower extremity was imaged, [...] Trans x 2.56 cm Sagittal. 12/31/2023 CXR ([facility]) IMPRESSION: 1. No significant interval change [...] PCP and pulmonary (Dr. Mayra Berg at [facility]). 6. History of hypothyroidism The patient [...] Dr. Jb Patterson, PCP Dr. Mayra Berg, Sixth Grade Teacher at [facility] documented in this encounter [facility] 11-19-2024 Note HNO ID: [id number] Author: TYLER DRAPER MD Service: ? Author [...] Ears: negative findings (more content not included)... [facility] 11-15-2024 History of Present illness [...] SITE APPEARANCE: Clean,Dry and Intact SIGNATURE: Meg Ashraf RN PATIENT NAME: Chiki Juarez DATE: November [...] PATIENT PRESENTS WITH AN IMPLANTABLE OR ATTACHED LICENSING REGISTRATION EXAMINER: No RADIOLOGY DEPARTMENT: CT; Exam(s) Completed: Chest PERIPHERAL IV DATA: Site assessment: Clean,Dry and Intact, Site disposition Discontinued SIGNED BY: ELAYNE Hassan) November 15, 2024 3:18 PM documented in this encounter [facility] 11-15-2024 Note HNO ID: [id number] Author: COREY DONALDSON RT(Melodie) Service: ? Author Type: Technologist Type: Progress [...] PATIENT PRESENTS WITH AN IMPLANTABLE OR ATTACHED LICENSING REGISTRATION EXAMINER: No RADIOLOGY DEPARTMENT: CT; Exam(s) Completed: Chest PERIPHERAL IV DATA: Site assessment: Clean,Dry and Intact, Site disposition Discontinued SIGNED BY: RT Sonya(R) November 15, 2024 3:18 PM [facility] 11-15-2024 Note HNO ID: [id number] Author: MEG ASHRAF RN Service: ? Author Type: Registered Nurse [...] SITE APPEARANCE: Clean,Dry and Intact SIGNATURE: Meg Ashraf RN PATIENT NAME: Chiki Juarez DATE: November 15, 2024 TIME: 2:32 PM [facility] 10-21-2024 Note [facility] Subjective Chiki Juarez is a 79 y.o. year old male patient being seen for follow up TB. EKG from the ED was questionable for [...] of COPD and is currently followed at [facility]. He takes multiple inhalers. In June [...] of breath. He recently was seen at [facility] pulmonary and was recommended to follow-up [...] daily. He was seen by cardiology at [facility] who also agreed that the shortness of breath is not of a cardiac etiology. His art museum aide was treating him with steroids. He also underwent walk test in September 2023 during which his oxygen dropped significantly. He previously underwent further evaluation at [facility] pulmonology and his follow-up PFTs showed improvement. He also had upper and lower extremity duplex venous ultrasounds and VQ scan of the lungs in January 2024 which were negative. He was admitted to the hospital at [facility] on 10/11/2024 due to COPD exacerbation and [...] cough and shortnes (more content not included)... [facility] 10-14-2024 Telephone encounter Note Please sign pended labs for 6 month f/u if agreeable-will draw with CT 1 week prior Thank You! Gloria Weinberg RN [facility] 10-14-2024 Miscellaneous Notes Please sign pended labs for 6 month f/u if agreeable-will draw with CT 1 week prior Thank You! Gloria Weinberg RN documented in this encounter [facility] 08-04-2024 History of Present illness Narrative [...] limited to risks of scarring, darker or precision lens technician pigmentary changes, recurrence, incomplete removal and [...] months, skin check documented in this encounter [facility] 06-20-2024 History of Present illness Narrative [...] Partner Violence: Unknown (10/08/2023) Received from [facility] Fear of Current [...] of distress Assessment/Plan documented in this encounter [facility] 06-13-2024 Telephone encounter Note Patient is scheduled 11/15/24 at 1:30 PM Shea Kolb PSS [facility] 06-13-2024 Miscellaneous Notes Patient is scheduled 11/15/24 at 1:30 PM Shea Kolb PSS notified and transferred to PSS to schedule CT as recommended prior to return visit with BRM. Valerie Mayes RN A voicemail was left on Chiki's phone to return our call to schedule a CT for November. Shea Kolb PSS Dr Mayra Berg, [facility] called and spoke with BRM yesterday [...] provided with any additional needs or concerns. BR CT Chest pended for review and sign PSS: Please call to schedule prior to return visit 11/21/24 Valerie Mayes RN documented in this encounter [facility] 06-13-2024 Telephone encounter Note notified and transferred to PSS to schedule CT as recommended prior to return visit with BRM. Valerie Mayes RN T [facility] 06-10-2024 Telephone encounter Note A voicemail was left on Chiki's phone to return our call to schedule a CT for November. Shea Kolb PSS T [facility] 06-10-[address] Mayra Berg, [facility] called and spoke with BRM yesterday [...] provided with any additional needs or concerns. BR CT Chest pended for review and sign PSS: Please call to schedule prior to return visit 11/21/24 Valerie Mayes RN [facility] 06-09-2024 History of Present illness Narrative [...] for 10 days. documented in this encounter [facility] 06-05-2024 Note HNO ID: [id number] Author: TYLER DRAPER MD Service: ? Author [...] infection Head: normal (more content not included)... [facility] 06-05-2024 History of Present illness [...] active disease. 02/01/2024 Bilateral lower extremity Doppscan ([facility]) The RIGHT lower extremity was imaged, [...] Trans x 2.56 cm Sagittal. 12/31/2023 CXR ([facility]) IMPRESSION: 1. No significant interval change [...] PCP and pulmonary (Dr. Mayra Berg at [facility]). 6. History of hypothyroidism Continue management [...] Tyler Draper MD CC: Dr. Mayra Berg, Sixth Grade Teacher at [facility] documented in this encounter [facility] 05-31-2024 History of Present illness Narrative [...] significance) 09/09/2023 Microscopic hematuria 05/21/2023 Mixed hyperglyceridemia ([facility]) 05/23/2022 Moderate persistent asthma without complication ([facility]) 05/31/2024 Nasal congestion 05/21/2023 Neuropathy, arm 05/21/2023 Obesity due to excess calories 05/31/2024 JUANA (obstructive sleep apnea) 04/15/2024 Other chronic pain 05/31/2024 Poor urinary stream 05/21/2023 Prostate nodule 05/21/2023 Pulmonary hypertension ([facility]) 07/02/2023 Noted in 05/21/2023 UT page 1, added per outpatient CDI policy. 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 documented in this encounter [facility] 05-17-2024 Note Patient Education Nutrition BMI [...] for Disease Control and Prevention: cdc.gov ? [place] Heart Association: heart.org ? National Heart, Lung, and Blood [place]: nhlbi.nih.gov This information is not intended to replace advice given to you by your health care provider. Make sure you discuss any questions you have with your health care provider. Document Revised: 04/23/2023 Document Reviewed: 04/16/2023 [employer] Patient Education ? 2023 [employer]. [facility] 05-13-2024 Note [place] [facility] - [facility] Subjective Chiki Juarez is a 79 y.o. year old male patient being seen for 6 mo follow up c,CANO, hyperlipidemia, and complete AV block s/p PPM. His device was interrogated a few weeks ago in the office. He has completed pulmonary rehab. Says his SOB has slightly improved since last visit in October 2023. His art museum aide at [facility] told him his PFT's had slightly [...] of COPD and is currently followed at [facility]. He takes multiple inhalers. In June [...] of breath. He recently was seen at [facility] pulmonary and was recommended to follow-up [...] daily. He was seen by cardiology at [facility] who also agreed that the shortness of breath is not of a cardiac etiology. His art museum aide was treating him with steroids. He also underwent walk test in September 2023 during which his oxygen dropped significantly. He recently underwent further evaluation at [facility] pulmonology and his follow-up PFTs showed [...] Objective Visit Vitals (more content not included)... [facility] 05-03-2024 History of Present illness Narrative [...] limited to risks of scarring, darker or precision lens technician pigmentary changes, recurrence, incomplete removal and [...] mo th FBSE documented in this encounter [facility] 04-29-2024 History of Present illness Narrative [...] safety can be found using this link: [email or web address] [email or web address] SIGNATURE: RT Sonya(Melodie) PATIENT NAME: Chiki Juarez DATE: April 29, 2024 TIME: 1:44 PM PAGER/CONTACT #: documented in this encounter [facility] 04-29-2024 Note HNO ID: [id number] Author: GLORIA WEINBERG RN Service: ? Author [...] DATE: April 29, 2024 TIME: 1:35 PM [facility] 04-29-2024 Note HNO ID: [id number] Author: COREY DONALDSON RT(R) Service: ? Author [...] 29, 2024 TIME: 1:44 PM PAGER/CONTACT #: [facility] 04-26-2024 Telephone encounter Note Patient is scheduled with MARY Simmons on 05/03/24 @ 11:00. [facility] 04-26-2024 Miscellaneous Notes Patient is scheduled with MARY Simmons on 05/03/24 @ 11:00. Records faxed to [facility]. Rhona: Information ready for you. Jennie Velasquez Please ref patient to [facility]. Dx Skin Lesion blaise facial area. Their office to call the patient to schedule/ Rhona, Please fax records Julius, Please follow up on this appt. documented in this encounter [facility] 04-22-2024 Hospital Discharge instructions Patient Education [...] treatment? Where to find more information The [place] Cancer Society: www.cancer.org Citizen [place] Urological Association: www.auanet.org Contact a health care [...] provider. Document Revised: 01/27/2022 Document Reviewed: 01/27/2022 [email or web address] Patient Education 2023 [employer]. Follow Up Care 03/09/2023 12:17:11 With:MIKE VENTURA, Oni Sewell, URL Address: [facility] [address] [place] [address] [phone] When: Unknown [facility] [place] 04-22-2024 Note Patient Education Oncology Prostate Cancer [...] Where to find more information ? The [place] Cancer Society: www.cancer.org ? [place] Urological Association: www.auanet.org Contact a health care [...] of the rectum. (more content not included)... [facility] 04-20-2024 Telephone encounter Note Records faxed to [facility]. [facility] 04-20-2024 Telephone encounter Note Rhona: Information ready for you. Jennie Velasquez [facility] 04-19-2024 Telephone encounter Note Please ref patient to [facility]. Dx Skin Lesion blaise facial area. Their office to call the patient to schedule/ Rhona, Please fax records Julius, Please follow up on this appt. [facility] 04-18-2024 Note HNO ID: [id number] Author: TYLER DRAPER MD Service: ? Author [...] visit here 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 For [...] date: Acute maxillary sinusitis No date: Cancer ([facility]) Comment: Lymphoma No date: Chronic bronchitis with emphysema No date: COPD (chronic obstructive pulmonary disease) ([facility]) No date: COVID No date: Cystic fibrosis gene carrier No date: Dysarthria following nontraumatic intracerebral hemorrhage No date: Hypothyroidism No date: Hypoxemia No date: Multiple myeloma ([facility]) No date: Pulmonary edema No date: Stroke ([facility]) No date: Thyroid disease Comment: aquired due [...] itching. HEMATOLOGY/LYMPHOLOGY: Neg (more content not included)... [facility] 04-18-2024 History of Present illness Narrative PATIENT NAME: Chiki uJarez DATE: 04/19/2024 PRIMARY CARE PHYSICIAN: Dr. Pito [...] visit here 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 For [...] date: Acute maxillary sinusitis No date: Cancer ([facility]) Comment: Lymphoma No date: Chronic bronchitis with emphysema No date: COPD (chronic obstructive pulmonary disease) ([facility]) No date: COVID No date: Cystic fibrosis gene carrier No date: Dysarthria following nontraumatic intracerebral hemorrhage No date: Hypothyroidism No date: Hypoxemia No date: Multiple myeloma ([facility]) No date: Pulmonary edema No date: Stroke [...] RADIOLOGY/OTHER STUDIES: 02/01/2024 Bilateral lower extremity Doppscan ([facility]) The RIGHT lower extremity was imaged, [...] Trans x 2.56 cm Sagittal. 12/31/2023 CXR ([facility]) IMPRESSION: 1. No significant interval change [...] random TRUS prostate biopsies with prostate adenocarcinoma, [place] 4+3, 3 cores involved out of 9, [...] PCP and pulmonary (Dr. Mayra Berg at [facility]). 6. History of hypothyroidism Continue management [...] Tyler Draper MD CC: Dr. Mayra Berg, Sixth Grade Teacher at [facility] documented in this encounter [facility] 02-02-2024 Telephone encounter Note Pt informed of BRM message and denies any questions, needs or concerns at this time. Appointment verified. Valerie Mayes RN [facility] 02-02-2024 Miscellaneous Notes Pt informed of BRM message and denies any questions, needs or concerns at this time. Appointment verified. Valerie Mayes RN ----- Message from Tyler Draper MD sent at 02/02/2024 8:08 AM EDT ----- Please inform the patient that his labs are stable. We will continue observation and see him back as scheduled. documented in this encounter [facility] 02-02-2024 Telephone encounter Note ----- Message from Tyler Draper MD sent at 02/02/2024 8:08 AM EDT ----- Please inform the patient that his labs are stable. We will continue observation and see him back as scheduled. [facility] 03-31-2023 Hospital Discharge instructions Patient Education [...] Address: [facility] [address] [place] [address]- Business (1) When:03/31/2024 11:58:05 Comments:With a renal ultrasound [facility] 03-09-2023 Hospital Discharge instructions Patient Education [...] urethra. Follow these instructions at home: Take chvf-fyb-vacawph and prescription medicines only as told by [...] provider. Document Revised: 02/19/2022 Document Reviewed: 02/19/2022 ParkerVision Patient Education 2022 [employer]. Follow Up Care 02/13/2023 11:39:29 With:MIKE VENTURA, Oni Sewell URL Address: [facility] [address], [place] [address]- [phone] When: Unknown Comments:schedule cysto and renal US1 yr w/ PSA [facility] [place] 08-05-2022 Miscellaneous Notes Informed pt of Dr Draper's message. Pt verbalized understanding and denies further needs at this time. Aby Hernandez RN ----- Message from Tyler Draper MD sent at 08/04/2022 12:29 PM EST ----- Please inform the patient that his PSA is stable at 0.26. We will continue as planned. ORETSES Encarnacion documented in this encounter [facility] 07-25-2022 Miscellaneous Notes Spoke to patient [...] awhile please advise documented in this encounter [facility] 01-16-2022 History of Present illness Narrative [...] random TRUS prostate biopsies with prostate adenocarcinoma, [place] 4+3, 3 cores involved out of 9, [...] x2 and pneumonia, following pulmonology team at [facility]. He has a family history significant [...] with PET CR ?Bronchiectasis, follows pulmonology at [facility] Possible cystic fibrosis, follows pulmonology at [facility], genetic testing pending Previous surgeries include a pacemaker in 2020. No family history of hematologic or oncologic issues but significant for cystic fibrosis in brother and nephew; granddaughter is a carrier of cystic fibrosis. Patient lives in [place], [place] with his , Nicolasa. He has 4 children. He has a 16-vzwc-nwfp smoking history and quit in 1986. He [...] Thus, a bone marrow biopsy would not oil change technician and it is okay to hold off [...] CC: Will Sherwood documented in this encounter [facility] 01-09-2022 History of Present illness Narrative [...] random TRUS prostate biopsies with prostate adenocarcinoma, [place] 4+3, 3 cores involved out of 9, [...] x2 and pneumonia, following pulmonology team at [facility]. He has a family history significant [...] with PET CR ?Bronchiectasis, follows pulmonology at [facility] Possible cystic fibrosis, follows pulmonology at [facility], genetic testing pending Previous surgeries include a pacemaker in 2019. No family history of hematologic or oncologic issues but significant for cystic fibrosis in brother and nephew; granddaughter is a carrier of cystic fibrosis. Patient lives in [place], [place] with his , Nicolasa. He has 4 children. He has a 60-xdju-kivc smoking history and quit in 1986. He [...] 0.1 g/dL, IgG lambda, ratio 1.64 Bone Imagin-29-21 CT scans with lytic lesions in the [...] Thus, a bone marrow biopsy would not oil change technician and it is okay to hold off for now. PSA stable at 0.30. He will follow up with Dr. Sousa for his history of prostate cancer. Hosea Herrera MD I spent a total of 20 minutes on the date of the service which included preparing to see the patient, ruel-ja-wnfq patient care, completing clinical documentation, obtaining and/or reviewing separately obtained history, performing a medically appropriate examination, counseling and educating the patient/family/caregiver, ordering medications, tests, or procedures, independently interpreting results (not separately reported) and communicating results to the patient/family/caregiver. CC: Will Sherwood documented in this encounter [facility] 11-19-2021 Hospital Discharge instructions Patient Education [...] who: Are older than age 65. Are -Citizen Of [place]. Are obese. Have a family history of [...] cells. Follow these instructions at home: Take qpxe-uwz-lzorqfk and prescription medicines only as told by [...] 08/03/2006 Document Revised: 07/16/2018 Document Reviewed: 04/13/2017 ParkerVision Patient Education [place]. Follow Up Care 10/30/2020 10:17:46 With:Young Manriquez MD, Romeo Valles, URO Address: [facility] [address], [place] [address]- [phone] When: Unknown [facility] Evaluation + Plan note Future Appointments Appointment Date:11/25/2022 10:15:00 AM Scheduled Provider:Romeo Vidal Jr., MD Location:[facility] Appointment Type:URO Office Visit [facility] Evaluation + Plan note Future Appointments Appointment Date:01/22/2024 11:00:00 AM Scheduled Provider: Location:[facility] Appointment Type: Medicare Wellness Subsequent Diagnostic Tests PendingT3 Free 01/26/23 [facility] Evaluation + Plan note Future Appointments Appointment Date:03/24/2023 10:00:00 AM Scheduled Provider: Location:[facility] Appointment Type:Urology CALL PAT FT Appointment Date:03/31/2023 11:15:00 AM Scheduled Provider: Location:[facility] Appointment Type:Urology FT Appointment Date:01/22/2024 11:00:00 AM Scheduled Provider: Location:[facility] Appointment Type: Medicare Wellness Subsequent Appointment Date:03/14/2024 11:15:00 AM Scheduled Provider:Oni MCKEON MD Location:[facility] [place] Appointment Type:URO Office Visit Diagnostic Tests PendingPSA Total 03/09/23 [facility] Evaluation + Plan note Future Appointments Appointment Date:01/22/2024 11:00:00 AM Scheduled Provider: [facility] Type: Medicare Wellness Subsequent Appointment Date:03/14/2024 11:15:00 AM Scheduled Provider:Oni MCKEON MD Location:[facility] [place] Appointment Type:URO Office Visit [facility] Evaluation + Plan note Future Appointments Appointment Date:12/02/2023 01:00:00 PM Scheduled Provider:Pito Patterson MD [facility]: Open Appointment Date:01/18/2024 01:00:00 PM Scheduled Provider:Pito Patterson [facility] Type[facility]FM Open Appointment Date:01/22/2024 11:00:00 AM Scheduled Provider: [facility] Type: Medicare Wellness Subsequent Appointment Date:03/14/2024 11:15:00 AM Scheduled Provider:Oni MCKEON MD [facility] Type:URO Office Visit [facility] Evaluation + Plan note Future Appointments Appointment Date:05/17/2024 10:00:00 AM Scheduled Provider:Pito Patterson MD Location:[facility] [place] Appointment Type:FM Open Appointment Date:02/14/2025 08:00:00 AM Scheduled Provider: [facility] Type: Medicare Wellness Subsequent Appointment Date:04/24/2025 09:45:00 AM Scheduled Provider:Oni MCKEON MD Location:[facility] [place] Appointment Type:URO Office Visit Diagnostic Tests PendingPSA Total 04/22/24 [facility] Evaluation + Plan note Future Appointments Appointment Date:04/24/2025 09:45:00 AM Scheduled Provider:Oni MCKEON MD Location:[facility] Appointment Type:URO Office Visit Appointment Date:02/15/2026 09:30:00 AM Scheduled Provider: Location:[facility] [place] Appointment Type:FM Medicare Wellness Subsequent Diagnostic Tests PendingHCV Antibody RFX to Quant PCR 02/16/25 [facility] Evaluation note Diagnosis MGUS (monoclonal gammopathy of unknown significance)- Primary Monoclonal paraproteinemia [facility] B12 deficiency- Primary Other B-complex deficiencies Diffuse large B-cell lymphoma, unspecified body region (HCC) [facility] Diagnosis MGUS (monoclonal gammopathy of unknown significance)- Primary Monoclonal paraproteinemia Macrocytic anemia Unspecified deficiency anemia [facility] Diagnosis MGUS (monoclonal gammopathy of unknown significance)- Primary Monoclonal paraproteinemia History of lymphoma Personal history of other lymphatic and hematopoietic neoplasm Lymph node enlargement Enlargement of lymph nodes Skin lesion of face Unspecified disorder of skin and subcutaneous tissue [facility] Diagnosis History of lymphoma Personal history of other lymphatic and hematopoietic neoplasm Lymph node enlargement Enlargement of lymph nodes [facility] Diagnosis Squamous cell carcinoma of scalp- Primary Other malignant neoplasm of scalp and skin of neck 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 documented in this encounter [facility] HealthcareEvaluation noteNo assessment information availableUk Healthcare Work Phone: Evaluation note* Diagnosis MGUS (monoclonal gammopathy of unknown significance)- Primary Monoclonal paraproteinemia History of lymphoma Personal history of other lymphatic and hematopoietic neoplasm History of prostate cancer Personal history of malignant neoplasm of prostate Skin lesion of face Unspecified disorder of skin and subcutaneous tissue [facility] Diagnosis Wound infection- Primary Posttraumatic wound infection not elsewhere classified Squamous cell carcinoma of scalp Other malignant neoplasm of scalp and skin of neck documented in this encounter [facility] HealthcareEvaluation note* Diagnosis Localized enlarged lymph nodes- Primary Enlargement of lymph nodes [facility] Squamous cell carcinoma of scalp- Primary Other malignant neoplasm of scalp and skin of neck Wound infection Posttraumatic wound infection not elsewhere classified Thyroid nodule (CMS/HCC) Nontoxic uninodular goiter documented in this encounter [facility] HealthcareEvaluation note* Diagnosis Hemangioma of skin and subcutaneous tissue- Primary Neoplasm of unspecified behavior of bone, soft tissue, and skin Seborrheic keratosis Actinic keratosis documented in this encounter [facility] HealthcareEvaluation note* Diagnosis Capillary angioma- Primary Nevus, non-neoplastic Melanocytic nevus of trunk Benign neoplasm of skin of trunk, except scrotum Seborrheic keratosis Actinic keratosis History of SCC (squamous cell carcinoma) of skin Personal history of other malignant neoplasm of skin Lentigo simplex Other dyschromia documented in this encounter [facility] HealthcareEvaluation note* Diagnosis Diffuse large B-cell lymphoma, unspecified body region (HCC)- Primary [facility] Diagnosis Localized enlarged lymph nodes Enlargement of lymph nodes Diffuse large B-cell lymphoma, unspecified body region (HCC) [facility] Diagnosis MGUS (monoclonal gammopathy of unknown significance)- Primary Monoclonal paraproteinemia History of prostate cancer Personal history of malignant neoplasm of prostate Acquired hypothyroidism Unspecified hypothyroidism [facility] Diagnosis Melanocytic nevus of trunk- Primary Benign neoplasm of skin of trunk, except scrotum History of SCC (squamous cell carcinoma) of skin Personal history of other malignant neoplasm of skin Seborrheic keratosis Actinic keratosis Ayala angioma Other seborrheic dermatitis documented in this encounter [facility] HealthcareEvaluation note* Diagnosis Venous insufficiency (chronic) (peripheral)- Primary Unspecified venous (peripheral) insufficiency Onychomycosis Dermatophytosis of nail Pain in left toe(s) Pain in right toe(s) documented in this encounter [facility] HealthcareHospital course Narrative No data available for this section [facility] [place] Hospital Discharge instructions No data available for this section [facility] Additional Instructions No exertional [...] or concerns [facility] the [facility] Work Phone: Progress note No data available for this section [facility] Summary Purpose Family History No Family History Records Found Relationship Condition Age at Onset Recorded Date/T ruma mother Malignant neoplasm of lung Unknown Unknown Advance Directives No Advanced Directives Records Found Advance Directive Response Recorded Date/ Time Advance Directives No June 01, 2024 10:37am Hospital Course Note MR#: [id number] I [facility] Pt. Name: Chiki Juarez Admitted: 06/26/2020 [...] asthma, lymphoma, and hypothyroidism, who transferred to [facility] for evaluation of poss (more content not included)... Reason for Referral Specialty Diagnoses / Procedures Referred By Chelsie simon Referred To Contact CT IMAGING Diagnoses Localized enlarged lymph nodes Procedures CT CHEST W IVCON DIAGNOSTIC COMPUTED TOMOGRAPHY THORAX W/CONTRAST Tyler Draper MD [address] [place] [address] [place] [address] [place] [id number] Referral ID Status Reason Start Date Expiration Date Visits Requested Visits Authorized [id number] Authorized Auto-Generat ed Referral 11/15/2024 07/10/2025 1 1 Specialty Diagnoses / Procedures Referred By Chelsie simon Referred To Contact Dermatology Diagnoses Skin lesion of face Procedures CONSULT TO DERMATOLOGY OFFICE/OUTPATIENT [facility] 60 MINUTES Tyler Draper MD [address] [place] [address] [place] [address] Referral ID Status Reason Start Date Expiration Date Visits Requested Visits Authorized [id number] Authorized PCP Requested Referral 04/19/2024 04/19/2025 1 1 Specialty Diagnoses / Procedures Referred By Contrajani t Referred To Contact MOLECULAR & FUNCTIONAL IMAGING Diagnoses History of lymphoma Lymph node enlargement Procedures NM PET/CT SKULL-THIGH SUBSEQUENT PET IMAGING CT ATTENUATION SKULL BASE MID-THIGH Tyler Draper MD [address] [place] [address] [place] [address] Molecular & Functional Imaging [address] [place] [address] Referral ID Status Reason Start Date Expiration Date Visits Requested Visits Authorized [id number] Authorized Auto-Generat ed Referral 04/19/2024 05/19/2025 1 [...] and content) DATE CREATED AUTHOR 07/16/2020 [facility] DATE CREATED AUTHOR AUTHOR'S ORGANIZ ATION 04/26/2022 [facility] DATE CREATED AUTHOR AUTHOR'S ORGANIZ ATION 10/16/2024 [facility] DATE CREATED AUTHOR AUTHOR'S ORGANIZ ATION 11/24/2024 [facility] DATE CREATED AUTHOR AUTHOR'S ORGANIZ ATION 02/19/2025 [facility] DATE CREATED AUTHOR AUTHOR'S ORGANIZ ATION 02/22/2025 [facility] DATE CREATED AUTHOR AUTHOR'S ORGANIZ ATION 03/03/2025 [facility] DATE CREATED AUTHOR AUTHOR'S ORGANIZ ATION 03/08/2025 [facility] DATE CREATED AUTHOR AUTHOR'S ORGANRUBIO ATION 03/17/2025 [facility] EPIC Source Comments (unrecognize d section and content) In the event this informatio n is protected by the Federal Confidentiality of Alcohol and Drug Abuse Patient Records regulations: The Federal rules restrict any use of the information to criminally investigate or prosecute any alcohol or drug abuse patient.[facility] the event this information is protected by the Federal Confidentiality of Alcohol and Drug Abuse Patient Records regulations: The Federal rules restrict any use of the information to criminally investigate or prosecute any alcohol or drug abuse patient.[facility] HospitalIn the event this information is protected by the Federal Confidentiality of Alcohol and Drug Abuse Patient Records regulations: The Federal rules restrict any use of the information to criminally investigate or prosecute any alcohol or drug abuse patient.[facility] Hospital[facility] the event this information is protected by the Federal Confidentiality of Alcohol and Drug Abuse Patient Records regulations: The Federal rules restrict any use of the information to criminally investigate or prosecute any alcohol or drug abuse patient.[facility] HospitalIn the event this information is protected by the Federal Confidentiality of Alcohol and Drug Abuse Patient Records regulations: The Federal rules restrict any use of the information to criminally investigate or prosecute any alcohol or drug abuse patient.[facility] HospitalIn the event this information is protected by the Federal Confidentiality of Alcohol and Drug Abuse Patient Records regulations: The Federal rules restrict any use of the information to criminally investigate or prosecute any alcohol or drug abuse patient.[facility] HospitalIn the event this information is protected by the Federal Confidentiality of Alcohol and Drug Abuse Patient Records regulations: The Federal rules restrict any use of the information to criminally investigate or prosecute any alcohol or drug abuse patient.[facility] HospitalIn the event this information is protected by the Federal Confidentiality of Alcohol and Drug Abuse Patient Records regulations: The Federal rules restrict any use of the information to criminally investigate or prosecute any alcohol or drug abuse patient.[facility] HospitalIn the event this information is protected by the Federal Confidentiality of Alcohol and Drug Abuse Patient Records regulations: The Federal rules restrict any use of the information to criminally investigate or prosecute any alcohol or drug abuse patient.[facility] HospitalIn the event this information is protected by the Federal Confidentiality of Alcohol and Drug Abuse Patient Records regulations: The Federal rules restrict any use of the information to criminally investigate or prosecute any alcohol or drug abuse patient.[facility] HospitalIn the event this information is protected by the Federal Confidentiality of Alcohol and Drug Abuse Patient Records regulations: The Federal rules restrict any use of the information to criminally investigate or prosecute any alcohol or drug abuse patient.[facility] HospitalIn the event this information is protected by the Federal Confidentiality of Alcohol and Drug Abuse Patient Records regulations: The Federal rules restrict any use of the information to criminally investigate or prosecute any alcohol or drug abuse patient.[facility] HospitalIn the event this information is protected by the Federal Confidentiality of Alcohol and Drug Abuse Patient Records regulations: The Federal rules restrict any use of the information to criminally investigate or prosecute any alcohol or drug abuse patient.[facility] HospitalIn the event this information is protected by the Federal Confidentiality of Alcohol and Drug Abuse Patient Records regulations: The Federal rules restrict any use of the information to criminally investigate or prosecute any alcohol or drug abuse patient.[facility] HospitalIn the event this information is protected by the Federal Confidentiality of Alcohol and Drug Abuse Patient Records regulations: The Federal rules restrict any use of the information to criminally investigate or prosecute any alcohol or drug abuse patient.[facility] Reason for Visit (unrecogniz ed section and content) Reason Comments Prostate Cancer Reason Comments Lab Orders Reason Comments Results Reason Comments Appointment Reason Comments MGUS Follow up Reason Comments Future Appointment Reason Comments Radiology NM Specialty Diagnoses / Procedures Referred By Contac t Referred To Contact MOLECULAR & FUNCTIONAL IMAGING Diagnoses History of lymphoma Lymph node enlargement Procedures NM PET/CT SKULL-THIGH SUBSEQUENT PET IMAGING CT ATTENUATION SKULL BASE MID-THIGH Tyler Draper MD [address] [place] [address] [place] [address] Molecular [facility] Functional Imaging [address] [place], [place] [id number] Referral ID Status Reason Start Date Expiration Date V isits Requested Visits Authorized [id number] Closed Auto-Generate d Referral 04/19/2024 05/19/2025 1 1 Reason Comments Suspicious Skin Lesion New patient : SCC left cheek / right scalp Specialty Diagnoses / Procedures [facility] Referred To Contact Otolaryngology Diagnoses 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 Procedures [place] OFFICE/OUTPATIENT NEW HIGH MDM 60 MINUTES Crys Taylor PA [address] [place] [address] Phone: tel: fax: Connor Crawley, [address] [place] [address] Phone: tel: fax: Referral ID Status Reason Start Date Expiration Date V isits Requested Visits Authorized [id number] Closed Specialty Services Required 05/09/2024 11/05/2024 1 1 Reason Comments 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) Reason Comments Post-op Post op exc SCC scal p Reason Comments Pet results Reason Comments Post-op Specialty Diagnoses / Procedures Referred [facility] Referred To Contact Dermatology Diagnoses skin lesion of face Procedures office visit Tyler Draper MD [address] [place] [address] [place] [address] Lucie Tompkins MD [address] [place] [address] Referral ID Status Reason Start Date Expiration Date Visits Re quested Visits Authorized [id number] Closed 04/21/2024 10/18/2024 1 1 Reason Comments Skin Check Reason Comments Orders Reason Comments Radiology CT Specialty Diagnoses / Procedures Referred By Chelsie t Referred To Contact CT IMAGING Diagnoses Localized enlarged lymph nodes Procedures CT CHEST W IVCON DIAGNOSTIC COMPUTED TOMOGRAPHY THORAX W/CONTRAST Tyler Draper MD [address] [place] [address] [place] [address] Phone: tel: fax: [place] [phone] Referral ID Status Reason Start Date Expiration Date V isits Requested Visits Authorized [id number] Closed Auto-Generate d Referral 11/15/2024 07/10/2025 1 1 Reason Comments MGUS Reason Onset Date Comments TSH results 11/24/2024 Reason Comments Toenail Care Non DM nail care Care Teams (unrecognized sec tion and content) [employer] Relationship Specialty Start Date End Date Will Sherwood MD [address] [place] [id number] PCP - General 08/01/05 [employer] Relationship Specialty Start Date End Date Will Sherwood MD [address] [id number] PCP - General 08/01/05 [employer] Relationship Specialty Start Date End Date Will Sherwood MD [address] [id number] PCP - General 08/01/05 [employer] Officer Relationship Specialty Start Date End Date Will Sherwood MD [address] [place] [address] PCP - General 08/01/05 [employer] Revenue Officer Relationship Specialty Start Date End Date Pito Patterson MD [address] [place] [address] PCP - General Family Medicine 07/23/23 [employer] Revenue [employer] Relationship Specialty Start Date End Date Pito Patterson MD [address] [place] [address] PCP - General Family Medicine 07/23/23 [employer] Revenue Officer Relationship Specialty Start Date End Date Pito Patterson MD [address] [place] [address] PCP - General Family Medicine 07/23/23 [employer] Revenue Officer Relationship Specialty Start Date End Date Pito Patterson MD [address] [place], [place] [id number] PCP - General Family Medicine 07/23/23 [employer] Revenue Officer Relationship Specialty Start Date End Date Unallocated, Noms MD Cole [address] [place] [address] PCP - General Family Medicine 04/08/23 Crys Taylor PA [address] [place] [address] Physician Student Affairs Vice President Dermatology 05/31/24 Connor Crawley DO [address] [place] [address] Otolaryngology 05/31/24 [employer] Revenue [employer] Relationship Specialty Start Date End Date Pito Patterson MD [address] [place] [address] PCP - General Family Medicine 05/31/24 Crys Taylor PA [address] [place] [address] Physician Student Affairs Vice President Dermatology 05/31/24 Connor Crawley DO [address] [place] [address] Otolaryngology 05/31/24 Team Status: Active Member Role Status Dates Pito Patterson MD Primary Care Provider Active Team Status: Inactive Member Role Status Dates Connor Crawley DO Attending Provider Active S tart: June 01, 2024 End: June 01, 2024 Pito Patterson MD Primary Care Provider Active Start: June 01, 2024 End: June 01, 2024 [employer]. Revenue Officer Relationship Specialty Start Date End Date Pito Patterson MD [address] [place] [address] PCP - General Family Medicine 05/31/24 Crys Taylor PA [address] [place] [address] Physician Student Affairs Vice President Dermatology 05/31/24 Connor Crawley DO [address] [place] [address] Otolaryngology 05/31/24 [employer].S. Revenue Officer Relationship Specialty Start Date End Date Pito Patterson MD [facility] [place] [address] PCP - General Family Medicine 07/23/23 [employer]. Revenue Officer Relationship Specialty Start Date End Date Pito Patterson MD [address] [place] [phone] PCP - General Family Medicine 05/31/24 Crys Taylor PA [address] [place] [address] Physician Student Affairs Vice President Dermatology 05/31/24 Connor Crawley DO [address] [place] [address] Otolaryngology 05/31/24 [employer]. Revenue Officer Relationship Specialty Start Date End Date Unallocated, Mohit Galvan MD [address] [place], [place] [phone] PCP - General Family Medicine 04/08/23 [employer].S. Revenue Officer Relationship Specialty Start Date End Date Unallocated, Mohit Galvan MD [address] [place] [address] PCP - General Family Medicine 04/08/23 U.S. Revenue Officer Relationship Specialty Start Date End Date Pito Patterson MD [address] [place] [address] PCP - General Family Medicine 05/31/24 Crys Tayolr PA [address] [phone] Physician Student Affairs Vice President Dermatology 05/31/24 Connor Crawley DO [address] [place] [address] Otolaryngology 05/31/24 [employer]. Revenue Officer Relationship Specialty Start Date End Date Pito Patterson MD [address] [place], [place] [id number] PCP - General Family Medicine 07/23/23 U.S. Revenue Officer Relationship Specialty Start Date End Date Pito Patterson MD [address] [place], [place] [id number] PCP - General Family Medicine 07/23/23 U.S. Revenue Officer Relationship Specialty Start Date End Date Pito Patterson MD [address] [place] [address] PCP - General Family Medicine 07/23/23 U.S. Revenue Officer Relationship Specialty Start Date End Date Pito Patterson MD [address] [place] [address] PCP - General Family Medicine 07/23/23 [employer]. Revenue Officer Relationship Specialty Start Date End Date Pito Patterson MD [address] [place] [address] PCP - General Family Medicine 05/31/24 Crys Taylor PA [address] [place] [address] Physician Student Affairs Vice President Dermatology 05/31/24 Connor Crawley DO [address] [place] [address] Otolaryngology 05/31/24 [employer]. Revenue Officer Relationship Specialty Start Date End Date Pito Patterson MD [address] [place] [phone] PCP - General Family Medicine 05/31/24 Crys Taylor PA [address] [place] [address] Physician Student Affairs Vice President Dermatology 05/31/24 Connor Crawley, [address] [place] [address] Otolaryngology 05/31/24 [employer]. Revenue Officer Relationship Specialty Start Date End Date Elpidio Wing MD [address] [place] [address] PCP - General Family Medicine 03/15/25 Crys Taylor, MARY [address] [place] [address] Physician Student Affairs Vice President Dermatology 05/31/24 Connor Crawley, [address] [place] [address] Otolaryngology 05/31/24 [employer]. Revenue Officer Relationship Specialty Start Date End Date Elpidio Wing MD [address] [place] [address] PCP - General Family Medicine 03/15/25 Crys Taylor, MARY [address] [place] [address] Physician Student Affairs Vice President Dermatology 05/31/24 Connor Crawley, [address] [place] [address] Otolaryngology 05/31/24 FOR RECORDS PERTAINING TO PATIENTS [...] BE BASED ON THE PRIMARY CLINICAL RECORDS. [facility] [employer] [facility]. provides no warranty or guarantee of the accuracy or completeness of information in this document.
--- NOTE | 2025-03-26 11:51 | XR_ITS ---
The [place] [id number] Patient Name: CHIKI FOLEY MRN: [id number] date: 1945 Sex: M Assigned Patient Location: ER Current Patient Location: ER Accession/Order Number: [id number] Exam Date: 03/26/2025 12:17 Report Date: 03/26/2025 12:19 At the request of: PENELOPE SEWELL MD Procedure: XR chest 1V Single view chest: CLINICAL HISTORY: left chest pain COMPARISON: CT chest 03/02/2025 FINDINGS: Pacemaker device in place. Cardiomegaly with vascular congestion and interstitial changes. Stable scarring right upper lobe. No consolidation pneumothorax, large pleural effusion or free air. XR/XR chest 1V IMPRESSION: CHF CHANGES. NO CONSOLIDATION TO SUGGEST PNEUMONIA. Impression dictated by: Malachi Spence Jr., DJefferyOJeffery 03/26/2025 12:19 PM Dictation Location: [place] [address] Electronically authenticated by: [id number] Y Date: 03/26/2025 12:19
--- NOTE | 2025-03-26 11:51 | ECG_ITS ---
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 Measurements Intervals [place] Rate: 96 P: 77 MO: 172 QRS: -51 QRSD: 132 T: 56 QT: 370 QTc: 424 Interpretive Statements 1100 Sinus rhythm 1470 with occasional supraventricular premature complexes 1570 with occasional ventricular premature complexes 2450 Right bundle branch block 2630 Left anterior fascicular block 9150 abnormal ECG Compared to ECG 03/03/2025 05:23:35 Ventricular premature complex(es) now present Right bundle-branch block now present Left anterior fascicular block now present Ventricular-paced complex(es) or rhythm no longer present Electronically Signed On 03-28-2025 12:48:41 EDT by DANIELLA TUCKER M.D.
[2025-03-26 11:58] LABS: Glucose Urine UA NEGATIVE (NEGATIVE)
[2025-03-26 11:59] LABS: Hematocrit 36.5 % (42.0-54.0); Hemoglobin 11.7 g/dL (14.0-18.0); Mean Corpuscular HGB Conc 32.1 g/dL (29.9-35.2); Mean Corpuscular Hemoglobin 33.7 pg (25.9-34.0); Mean Corpuscular Volume 105.2 fL (80.0-94.0); Platelet Count 159 10^3/uL (150-450); Red Blood Count 3.47 10^6/uL (4.70-6.10); White Blood Count 8.8 10^3/uL (4.0-11.0)
[2025-03-26] MEDS: KETOROLAC TROMETHAMINE 30 MG/ML VIAL 15 MG IVP (12:01)
[2025-03-26 12:06] LABS: Cast Seen? NONE SEEN #/LPF (NONE SEEN); Crystals Seen? None Seen #/HPF (None Seen); Urine Culture Indicated NO
[2025-03-26 12:09] LABS: INR 1.06; Prothrombin Time 11.2 sec (9.0-11.6)
[2025-03-26 12:11] LABS: Alanine Aminotransferase 23 U/L (16-63); Albumin Globulin Ratio 0.7; Albumin Level 2.8 g/dL (3.4-5.0); Alkaline Phosphatase 115 U/L (46-116); Anion Gap 13.1; Aspartate Amino Transferase 8 U/L (15-37); Blood Urea Nitrogen 25.0 mg/dL (7.0-18.0); Calcium 8.9 mg/dL (8.5-10.1); Carbon Dioxide 26.8 mmol/L (21.0-32.0); Chloride 104 mmol/L (98-107); Estimated GFR (African America 55 (>=60 mL/min/1.73m^2); Estimated GFR (Non-African Ame 46 (>=60 mL/min/1.73m^2); Globulin 4.2 g/dL; Glucose 112 mg/dL (74-106); Potassium 3.9 mmol/L (3.5-5.1); Sodium 140 mmol/L (136-145); Total Protein 7.0 g/dL (6.4-8.2)
[2025-03-26 12:13] LABS: Lactate/Lactic Acid 1.9 mmol/L (0.4-2.0)
--- NOTE | 2025-03-26 12:24 | CT_ITS ---
The [address] [address] Patient Name: CHIKI FOLEY MRN: [id number] date: 1945 Sex: M Assigned Patient Location: ER Current Patient Location: ER Accession/Order Number: [id number] Exam Date: 03/26/2025 13:13 Report Date: 03/26/2025 13:18 At the request of: PENELOPE SEWELL MD Procedure: CT abdomen pelvis wo con CT ABDOMEN AND PELVIS WITHOUT INTRAVENOUS CONTRAST: CLINICAL HISTORY: left flank pain COMPARISON: CT abdomen and pelvis 04/02/2023 TECHNIQUE: Spiral images were obtained through the abdomen and pelvis without intravenous contrast. This CT exam was performed using one or more following dose reduction techniques: Automated exposure control, adjustment of the mA and/or kV according to patient size, or use of iterative reconstruction technique. FINDINGS: Lung Bases: [Bibasilar scarring.] Organs:Suboptimal evaluation due to lack of IV contrast. Liver and splenic granulomas. Gallbladder pancreas and adrenal glands all appear unremarkable. Cysts right kidney. Left kidney appears unremarkable. No stone or hydronephrosis. Abdominal aorta appears normal in caliber.[ GI: Stomach is grossly unremarkable. Small bowel appears nondilated. No acute colonic abnormality.[ Pelvis:[Urinary bladder and prostate gland appear unremarkable.] Peritoneum/Retroperitoneum:No free air free fluid or lymphadenopathy.[ Abd wall/Bones:No acute findings. Osseous structures demonstrate degenerative changes. Chronic appearing compression deformity L2 vertebral body new since 2022. CT/CT abdomen pelvis wo con IMPRESSION: No acute intra-abdominal process. Obstructive uropathy. Chronic appearing compression deformity L2 vertebral body new since 2022. If acuity needs to be assessed, MRI is suggested. Impression dictated by: Malachi Spence Jr., D.O. 03/26/2025 1:18 PM Dictation Location: [employer] Electronically authenticated by: [id number] Y Date: 03/26/2025 13:18
[2025-03-26 12:29] LABS: Band Neutrophils Absolute 0.5 10^3/uL (0.0-0.3); Basophils Abs Manual 0.00 10^3/uL (0.00-0.10); Basophils Percent Manual 0.0 % (0.2-2.0); Eosinophils Absolute Manual 0.00 10^3/uL (0.00-0.70); Eosinophils Percent Manual 0.0 % (0.9-7.0); Lymphocytes Absolute Manual 0.96 10^3/uL (1.20-3.80); Lymphocytes Percent Manual 11.0 % (20.5-60.0); Metamyelocytes Absolute Manual 0.17; Monocytes Absolute Manual 3.52 10^3/uL (0.30-0.80); Monocytes Percent Manual 40.0 % (1.7-12.0); Segmented Neut Absolute Manual 3.60 10^3/uL (1.4-6.5); Segmented Neutrophils % Manual 41.0 (43.0-75.0)
--- NOTE | 2025-03-26 12:49 | ED_ITS ---
HPI HPI - General Adult General Chief complaint: Back Pain/Injury Stated complaint: BACK PAIN, URINARY ISSUES, WEAKNESS Time Seen by Provider: 03/26/25 11:39 Source: patient and family Mode of arrival: Wheelchair Limitations: no limitations History of Present Illness HPI narrative: The patient is a 80-year-old male who have a history of chronic kidney disease is COPD who is on baseline oxygen is coming to the ER with left-sided flank and lower chest and back pain that been going on for the last 24 hours, the pain gets worse whenever he take a deep breath or cough and with laying on that side, the patient just finishing in the last day of his biotic for possible pneumonia that he was provided with by his primary care. The patient denies any shortness of breath any chest pain. No nausea no vomiting no diarrhea He also mentioned having history of kidney stone and that he have some problem urinating but he also mentioned that he did not drink enough water since yesterday The pain gets worse whenever he is coughing and he mentioned that the Mucinex is not helping his cough Related Data Home Medications ?Medication ?Instructions ?Recorded ?Confirmed albuterol sulfate 2.5 mg/3 mL 2.5 mg inhalation Q4H NV N 10/11/24 03/02/25 (0.083 %) solution for nebulization shortness of breat h or wheezing aspirin 81 mg capsule 81 mg PO DAILY 10/11/2402/14 calcium 1,200 mg PO DAILY 10/11/24 0 03/02/25 cholecalciferol (vitamin D3) 25 25 mcg PO DAILY 03/02/25 mcg (1,000 unit) capsule (Vitamin D3) cyanocobalamin (vitamin B-12) 5,000 mcg sublingual GABRIELLA LY 10/11/24 03/02/25 5,000 mcg sublingual tablet (Vitamin B-12) salmeterol 50 mcg/dose blister 1 inh inhalation BID 03/02/25 powder for inhalation (Serevent Diskus) sodium chloride 3.5 % for 4 ml inhalation BID 10/11/24 03/02/25 nebulization (Hyper-Flaco) montelukast 10 mg tablet 10 mg PO DAILY 03/02/2502/14 tezepelumab-ekko 210 mg/1.91 mL 210 mg subcut .qmonthl y 03/02/25 03/02/25 (110 mg/mL) subcutaneous pen injector (Tezspire) Held on 03/06/25. Instructions: hold until you call your script artist office and address that tiotropium bromide 18 mcg capsule 1 cap inhalation GABRIELLA LY 03/02/25 03/02/25 with inhalation device budesonide 1 mg/2 mL suspension 1 mg inhalation Q12H 0 03/03/25 03/03/25 for nebulization furosemide 40 mg tablet 40 mg PO DAILY 03/03/2502/14 levothyroxine 112 mcg tablet 112 mcg PO .acb 03/03/25 03/03/25 Previous Rx's ?Medication ?Instructions ?Recorded metoprolol succinate 25 mg 25 mg PO QD #30 tabs tablet,extended release 24 hr dextromethorphan-guaifenesin ER 60 1 tab PO BID PRN co ugh #20 tabs 03/06/25 mg-1,200 mg tab,extend release,12hr (Robitussin Max 12H Cough-Mucus) doxycycline monohydrate 100 mg 100 mg PO BID 5 days #1 0 caps 03/06/25 capsule prednisone 10 mg tablet See Rx Instructions .Route 0 03/06/25 .COMPLEX #42 tabs sennosides 8.6 mg-docusate sodium 1 tab PO QD PRN Cons tipation 10 03/06/25 50 mg tablet (Senna Plus) days #10 tabs benzonatate 100 mg capsule 100 mg PO TID PRN cough #14 caps 03/26/25 tramadol 50 mg tablet 50 mg PO Q12H PRN pain 3 day s #6 03/26/25 tabs Allergies Allergy/AdvReac Type Severity Reaction Status Date / Time No Known Drug Allergies Allergy Verified 03/26/25 11:24 Opioid HPI Opioid Management Most Recent Opioid Data: Last Pain Scale 2 03/06/25, 17:08 Last Pain Intensity 1 03/03/25, 16:43 Last ORT Total Score 3 03/02/25, 16:10 Last ORT Risk Category Low Risk 03/02/25, 16:10 Review of Systems ROS Status of ROS 10 or more systems reviewed and unremark able except as noted in history and below [facility] Medical History (Updated 08/10/25 @ 13:30 by Meredith Contreras MD) Lymphoma ?C85.90 - Non-Hodgkin lymphoma, unspecified, unspecified site (ICD-10) Pacemaker ?Z95.0 - Presence of cardiac pacemaker (ICD-10) Family History (Updated 03/02/25 @ 17:00 by Mayra Ríos) Brother Family history of cancer Social History (Updated 03/02/25 @ 17:02 by Mayar Ríos) Within the past year, how often did you have a drink containing alcohol: never Within the past year, how often did you have six or more drinks on one occasion: never Score interpretation: A score less than 4 is consistent with normal alcohol consumption. 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 Known occupational exposures/hazards: No Highest level of school completed/degree received: high school graduate Do you want help with school or training: No Are you now , , , , never or living with a partner: In a typical week, how many times do you talk on the telephone with family, friends, or neighbors: 3 or more times per week How often do you get together with friends or relatives: 3 or more times per week How often do you attend orthodox or moravian services: never Do you belong to any clubs or organizations such as orthodox groups unions, fraternal or athletic groups, or school groups: no Total score: 2 Score interpretation: A score of greater than or equal to 2 indicates the lowest level of social isolation. Little interest or pleasure in doing things: not at all Feeling down, depressed, or hopeless: not at all Feel stressed/tense/nervous/anxious/difficulty sleeping: not at all Due to disability, difficulty making decisions: No Do you think of yourself as: straight/heterosexual Gender Identity: male Exam Narrative Exam Narrative: Nurses notes and vital signs reviewed and patient is not hypoxic. General: Well-appearing and in no apparent distress. Skin: Warm, dry, no pallor noted. No rash. Head: Normocephalic, atraumatic. Neck: Supple, non-tender. Eye: Pupils are equal, round and EOMI. No scleral icterus. Ears, Nose, Mouth, and Throat: TM are clear, no nasal mucosal hypertrophy. Oral mucosa is moist, no posterior oropharynx erythema, uvula is mid-line Cardiovascular: Regular Rate and Rhythm without murmur, gallop or rub. Respiratory: Distant breathing sound bilaterally Back: No midline thoracic or lumbar vertebral tenderness. When pointing to the area of pain he is pointing to the left CVA as well as the left lower thoracic area Musculoskeletal: normal ROM, no calf or popliteal tenderness, chronic edema nonpitting GI: Abdomen is soft, non-distended. Normal bowel sounds. No masses appreciated. No tenderness to palpation. No rebound, guarding, or rigidity noted. Neurological: A&O x4. No cranial nerve dysfunction observed.t. Constitutional Vital Signs, click to edit/add: Last Vital Signs Temp 97.5 F L 03/26/25 11:26 Pulse 87 03/26/25 13:33 Resp 18 03/26/25 13:33 BP 115/52 03/26/25 13:33 Pulse Ox 94 L 03/26/25 13:33 O2 Del Method Nasal Cannula 03/26/25 11:40 O2 Flow Rate 4 03/26/25 11:40 Course Vital Signs Vital signs: Vital Signs Temperature 97.5 F L 03/26/25 11:26 Pulse Rate 101 H 03/26/25 11:26 Respiratory Rate 24 H 03/26/25 11:26 Blood Pressure 124/74 03/26/25 11:26 Pulse Oximetry 92 L 03/26/25 11:26 Oxygen Delivery Method Nasal Cannula 03/26/25 11:26 Oxygen Delivery Flow Rate 4 03/26/25 11:26 Temperature 97.5 F L 03/26/25 11:26 Pulse Rate 87 03/26/25 13:33 Respiratory Rate 18 03/26/25 13:33 Blood Pressure 115/52 03/26/25 13:33 Pulse Oximetry 94 L 03/26/25 13:33 Oxygen Delivery Method Nasal Cannula 03/26/25 11:40 Oxygen Delivery Flow Rate 4 03/26/25 11:40 Medical Decision Making [facility] Narrative Medical decision making narrative: The patient EKG showing sinus rhythm with a heart rate of [address] elevation or depression there is a right bundle gabriella block Chest x-ray showed no acute pathology but showed some congestion and CHF picture CBC and chemistry shows a chronic kidney disease but no white blood cells camilo vation and the patient urinalysis showed no infection The patient CAT scan of the abdomen pelvis shows the patient compression fracture at L2 which was as per the patient and old finding The patient presentation is mostly secondary to muscular pain now that we rule out any pneumonia or kidney stone the patient pain gets worse whenever he take a deep breath or lay on that side and he was evaluated in the ER with a Toradol and he was feeling much better he was discharged home with tramadol as well as stopping the Mucinex and starting Tessalon Perles. The patient was instructed about monitoring his symptoms he just finishing antibiotic right now and he have to make sure that his symptoms of coughing will get better especially that the cough will be the reason for his continuous pain as well causing strain on the back The patient understand and he is feeling much better The patient is to follow up with primary care physician in next 2-3 days or to return to the emergency department should any of the signs or symptoms worsen or new symptoms develop. The patient agrees with the following Diagnosis and Treatment plan and the patient will be discharged home. Lab Data Labs: Lab Results 03/26/25 03/26/25 Range/Units 11:36 11:45 WBC 8.8 (4.0-11.0) 10^3/uL RBC 3.47 L (4.70-6.10) 10^6/uL Hgb 11.7 L (14.0-18.0) g/dL Hct 36.5 L (42.0-54.0) % MCV 105.2 H (80.0-94.0) fL MCH 33.7 (25.9-34.0) pg MCHC 32.1 (29.9-35.2) g/dL RDW 16.7 H (11.0-15.0) % Plt Count 159 (150-450) 10^3/uL MPV 10.8 (9.5-13.5) fL Seg Neuts % (Manual) 41.0 L (43.0-75.0) Band Neutrophils % 6.0 H (0-5) % Lymphocytes % (Manual) 11.0 L (20.5-60.0) % Monocytes % (Manual) 40.0 H (1.7-12.0) % Eosinophils % (Manual) 0.0 L (0.9-7.0) % Basophils % (Manual) 0.0 L (0.2-2.0) % Metamyelocytes % 2.0 Neutrophils # (Manual) 3.60 (1.4-6.5) 10^3/uL Band Neutrophils # 0.5 H (0.0-0.3) 10^3/uL Lymphocytes # (Manual) 0.96 L (1.20-3.80) 10^3/uL Monocytes # (Manual) 3.52 H (0.30-0.80) 10^3/uL Eosinophils # (Manual) 0.00 (0.00-0.70) 10^3/uL Basophils # (Manual) 0.00 (0.00-0.10) 10^3/uL Metamyelocytes # 0.17 PT 11.2 (9.0-11.6) sec INR 1.06 Sodium 140 (136-145) mmol/L Potassium 3.9 (3.5-5.1) mmol/L Chloride 104 (98-107) mmol/L Carbon Dioxide 26.8 (21.0-32.0) mmol/L Anion Gap 13.1 BUN 25.0 H (7.0-18.0) mg/dL Creatinine 1.49 H (0.70-1.30) mg/dL Est GFR ( Amer) 55 L (>=60 mL/min/1.73m^2) Est GFR (Non-Af Amer) 46 L (>=60 mL/min/1.73m^2) BUN/Creatinine Ratio 16.8 Glucose 112 H (74-106) mg/dL Lactate 1.9 (0.4-2.0) mmol/L Calcium 8.9 (8.5-10.1) mg/dL Total Bilirubin 0.7 (0.2-1.0) mg/dL AST 8 L (15-37) U/L ALT 23 (16-63) U/L Alkaline Phosphatase 115 (46-116) U/L Troponin I High Sens 8.4 (4.0-76.1) pg/mL Total Protein 7.0 (6.4-8.2) g/dL Albumin 2.8 L (3.4-5.0) g/dL Globulin 4.2 g/dL Albumin/Globulin Ratio 0.7 Urine Color Lt. yellow (YELLOW) Urine Clarity Clear (CLEAR) Urine pH 6.5 (5.0-9.0) Ur Specific [place] <=1.005 A (1.005-1.025) Urine Protein Negative (NEG/TRACE) mg/dL Urine Glucose (UA) Negative (NEGATIVE) mg/dL Urine Ketones Negative (NEGATIVE) mg/dL Urine Occult Blood Trace-i (NEGATIVE) Urine Nitrite Negative (NEGATIVE) Urine Bilirubin Negative (NEGATIVE) Urine Urobilinogen 0.2 (0.2-1.0) EU/dL Ur Leukocyte Esterase Negative (NEGATIVE) Urine RBC 0-2 (0-2) #/HPF Urine WBC 0-2 A (NONE SEEN) #/HPF Ur Squamous Epith Cells Rare (NONE/RARE) #/LPF Urine Crystals None seen (None Seen) #/HPF Urine Bacteria Trace A (NONE SEEN) #/HPF Urine Casts None seen (NONE SEEN) #/LPF Urine Mucus None seen (NONE SEEN) Ur Culture Indicated? No Discharge Plan Discharge Chief Complaint: Back Pain/Injury Clinical Impression: Back pain, Cough Patient Disposition: Home, Self-Care Time of Disposition Decision: 13:42 Condition: Good Prescriptions / Home Meds: New benzonatate 100 mg capsule 100 mg PO TID PRN (Reason: cough) Qty: 14 0RF tramadol 50 mg tablet 50 mg PO Q12H PRN (Reason: pain) 3 Days Qty: 6 0RF No Action albuterol sulfate 2.5 mg /3 mL (0.083 %) solution for nebulization 2.5 mg inhalation Q4H PRN (Reason: shortness of breath or wheezing) calcium tablet 1,200 mg PO DAILY cyanocobalamin (vitamin B-12) [Vitamin B-12] 5,000 mcg tablet, sublingual 5,000 mcg sublingual DAILY cholecalciferol (vitamin D3) [Vitamin D3] 25 mcg (1,000 unit) capsule 25 mcg PO DAILY aspirin 81 mg capsule 81 mg PO DAILY Hyper-Flaco 3.5 % solution for nebulization 4 ml INHALATION BID Serevent Diskus 50 mcg/dose blister with device 1 inh inhalation BID metoprolol succinate 25 mg Tablet Extended Release 24 Hr 25 mg PO QD Qty: 30 0RF montelukast 10 mg tablet 10 mg PO DAILY Tezspire 210 mg/1.91 mL (110 mg/mL) pen injector 210 mg SUBCUT .qmonthly tiotropium bromide 18 mcg capsule, w/inhalation device 1 cap INHALATION DAILY furosemide 40 mg tablet 40 mg PO DAILY levothyroxine 112 mcg tablet 112 mcg PO .acb budesonide 1 mg/2 mL suspension for nebulization 1 mg inhalation Q12H sennosides-docusate sodium [Senna Plus] 8.6-50 mg Tablet 1 tab PO QD PRN (Reason: Constipation) 10 Days Qty: 10 0RF doxycycline monohydrate 100 mg Capsule 100 mg PO BID 5 Days Qty: 10 0RF dextromethorphan-guaifenesin [Robitussin Max 12H Cough-Mucus] 60-1,200 mg tablet extended release 12 hr 1 tab PO BID PRN (Reason: cough) Qty: 20 0RF prednisone 10 mg tablet See Rx Instructions .ROUTE .COMPLEX Qty: 42 0RF Rx Instructions: Take 60 mg (total of 6 tablets) daily for 3 days followed by 40 mg (4 tablets) daily for another 3 days followed by 20 mg (total of 2 tablets) daily fo4 another 3 days followed by 10 mg (1 tablet) daily for another 3 days followed by 5 mg (half a tablet) daily for another 3 days and you will finish this steroid taper Print Language: Divehi Instructions: Acute Low Back Pain (ED) Referrals: Elpidio Wing MD [Primary Care Provider, Family Practice] - 1 week
== END 2025-03-26 14:16 | disposition home or self-care (01) ==
PROVIDERS: Emergency Provider Emergency Medicine; PCP Family Medicine
DX: M54.50 Low back pain, unspecified (principal); R05.9 Cough, unspecified; I50.9 Heart failure, unspecified; N18.9 Chronic kidney disease, unspecified
CPT/HCPCS: 36415; 71045; 74176; 80053; 81001; 83605; 84484; 85007; 85027; 85610; 93005; 96374; 99285; J1885

== ENCOUNTER 2025-06-01 13:00 | Outpatient (OUT) | payer MEDICARE, SELFPAY ==
--- OUTSIDE RECORDS SUMMARY | 2025-05-23 11:00 | XMS_ITS | Encounter Summary ---
Author Organization [facility] Address [address] [place] [address] Care Team Providers Care Vegetables Cook Name Role Phone Marshall Briceño MD Primary Care Provider [phone] Encounter Details Date Type Department Care Team (Latest Contact Info) Description 05/23/2025 11:00 AM EDT Ancillary Procedure [address] [address] Encounter for implantable defibrillator reprogramming or check Social History Tobacco Use Types Packs/Day Years [...] Information Value Date Recorded Sex Assigned at Male 05/17/2025 9:50 AM EDT Legal Sex Male 11:54 PM EDT Gender Identity Male 05/17/2025 9:50 AM EDT Sexual Orientation Heterosexual or Straight 08/2024 9:50 AM EDT documented as of this encounter Plan of Treatment Upcoming Encounters Date Type Department Care Team (Late st Contact Info) Description 06/02/2025 2:45 PM EDT Office Visit [address] [address] Rodolfo Easton MD [address] [facility] [address] [facility] [place] [address] documented as of this encounter Procedures Procedure Name Priority Date/Time Associated Diagnosis Comments CARDIAC DEVICE CHECK - IN CLINIC - PACEMAKER DUAL CHAMBER W/ PROG Routine 05/23/2025 2:04 PM EDT Encounter for implantable defibrillator reprogramming or check documented in this encounter Results * CARDIAC DEVICE CHECK - IN CLINIC - PACEMAKER DUAL CHAMBER W/ PROG (05/23/2025 2:04 PM EDT) Anatomical Region Laterality Modality Other Narrative 05/29/2025 9:44 AM EDT Normal device function us Connor Roberts MD CV IMPLANTABLE CARDIAC DEVICE [place] OCEDURES Final Result documented in this encounter Visit Diagnoses Diagnosis Encounter for implantable defibrillator reprogramming or check Fitting and adjustment of automatic implantable cardiac defibrillator documented in this encounter Care Teams Vegetables Cook Relationship Specialty Start Date End Date Marshall Briceño MD [address] [place] [id number] PCP - General Family Medicine 05/21/23 05/30/25 documented as of this encounter
--- OUTSIDE RECORDS SUMMARY | 2025-05-24 15:10 | XMS_ITS | Encounter Summary ---
Author Organization [facility] Address [address] [place] [address] Care Team Providers Care Program Management Professional Name Role Phone Edwige Taylor Unavailable [phone] Connor Muñoz DO Unavailable [phone] Elpidio Wing MD Primary Care Provider [phone] Reason for Visit * Reason Comments Toenail Care Non dm nail care Encounter Details Date Type Department Care Team (Latest Contact Info) Description 05/24/2025 3:10 PM EDT Procedure Visit [facility] [address] [place] [phone] Gil Little, DPM FACFAS [address] [place] [address] Onychomycosis (Primary Dx); Pain in left toe(s); [...] hypertension (HCC) 07/02/2023 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 They were painful to palpation [id number] on the right [address] on the left. VASC: DP /PT were nonpalpable bilateral. Capillary refill time < 3 seconds Digits 1-5 bilateral NEURO: [place] Jerson 5.07 monofilament was intact B/L. Vibratory [...] [facility] [address] [place] [address] Gil Little, DPM FACFAS [address] [facility] [place] [address] 08/03/2025 1:10 PM EST Office [facility] [address] [facility] [address] [place] [address] Edwige Taylor PA [address] [facility] [address] [place] [address] documented as of this encounter Visit Diagnoses Diagnosis Onychomycosis- Primary Dermatophytosis of nail Pain in left toe(s) Pain in right toe(s) documented in this encounter Care Teams Program Management Professional Relationship Specialty Start Date End Date Elpidio Wing MD [address] [place] [phone] PCP - General Family Medicine 03/15/25 Edwige Taylor PA [address] [facility] [address] [place] [address] Physician Rotary Engine Assembler Dermatology 05/31/24 Connor Muñoz DO [address] [facility] [place] [place] [address] Otolaryngology 05/31/24 documented as of this encounter
--- OUTSIDE RECORDS SUMMARY | 2025-05-26 15:00 | XMS_ITS | Encounter Summary ---
Author Organization [facility] Address [address] [place] [address] Care Team Providers Care Dye Tank Tender Name Role Phone Marshall Briceño MD Primary Care Provider Source Comments In the event this information is protected by the Federal Confidentiality of Alcohol and Drug AbusePatient Records regulations: The Federal rules restrict any use of the information to criminally investigate or prosecute any alcohol or drug abuse patient.[facility] Reason for Visit * Reason Comments Established Patient 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) Encounter Details Date Type Department Care Team (Latest Contact Info) Description 05/26/2025 3:00 PM EDT Visit (SP) Office Hematology/Oncology [address] [place] [address] Ginger Bean APRN.SOCIAL AND HUMAN SERVICES ASSISTANT [address] [place] [address] MGUS (monoclonal gammopathy of unknown [...] is lower risk 8 06/06/2024 Data from: https://www.neighborhoodatlas.[facility]/. Last address used for calculation [address] [place] [address] [address] 06/06/2024 Sex and Gender Information [...] this encounter Progress Notes * Ginger Bean APRN.SOCIAL AND HUMAN SERVICES ASSISTANT - 05/26/2025 2:53 PM EDT PATIENT NAME: [...] abnormal blood work was identified by his superintendent sanitation, Dr. Berg, during evaluation for back issues. [...] wounds or petechiae. PATHOLOGY: 06/01/2024 [place] A. Skin lesion from left cheek: Recent [...] active disease. 02/01/2024 Bilateral lower extremity Doppscan ([facility]) The RIGHT lower extremity was imaged, [...] Trans x 2.56 cm Sagittal. 12/31/2023 CXR ([facility]) IMPRESSION: 1. No significant interval change and no new or worsening airspace disease. No pleural effusion or pneumothorax. 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 2. Stable cardiomediastinal silhouette. 3. Left chest wall CIED with leads in the right atrium and right ventricle. 4. Unchanged compression deformity in the mid thoracic spine. 09/24/2021 Skeletal bone survey ([facility]) No lytic lesions suggestive of [...] random TRUS prostate biopsies with prostate adenocarcinoma, [place] 4+3, 3 cores involved out of 9, [...] PCP and pulmonary (Dr. Mayra Berg at [facility]). 6. History of hypothyroidism The patient [...] which included preparing to see the patient, [id number] patient care, completing clinical documentation, obtaining and/or reviewing separately obtained history, performing a medically appropriate examination, counseling and educating the pat ient/family/caregiver, ordering medications, tests, or procedures, independently interpreting results (not separately reported), and communicating results to the patient/family/caregiver. CC: Dr. Jb Briceño, PCP Dr. Mayra Berg, Residential Advisor at [facility] documented in this encounter Plan of Treatment Upcoming Encounters Date Type Department Care Team (Latest Contact Info) Description 11/24/2025 1:45 PM EDT Office Visit [facility] [address] [place] [address] RV in 6 months with lab 11/24/2025 2:00 PM EDT Visit (SP) Office Hematology/Oncology [address] [place] [address] Ginger Bean APRN.SOCIAL AND HUMAN SERVICES ASSISTANT [address] [place] [address] RV in 6 months with lab Scheduled [...] hypothyroidism documented in this encounter Care Teams Dye Tank Tender Relationship Specialty Start Date End Date Marshall Briceño MD [address] [place] [address] PCP - General Family Medicine 07/23/23 documented as of this encounter
--- OUTSIDE RECORDS SUMMARY | 2025-06-01 13:03 | XMS_ITS | Encounter Summary ---
Author Organization [facility] Address [address] [place] [address] Care Team Providers Care Vocal Artist Name Role Phone Marshall Briceño MD Primary Care Provider [phone] Reason for Visit * Reason Comments Med Refill Encounter Details Date Type Department Care Team (Late st Contact Info) Description 05/20/2025 Refill [facility] [address] [place] [address] Rodolfo Easton MD [address] [facility] [facility] [place] [phone] Dyspnea on exertion Social History Tobacco Use Types Packs/Day Years [...] Description 06/02/2025 2:45 PM EDT Office Visit [facility] [address] [place] [phone] Rodolfo Easton MD [address] [facility] [address] [facility] [place] [address] documented as of this encounter Visit Diagnoses Diagnosis Dyspnea on exertion Other dyspnea and respiratory abnormality documented in this encounter Care Teams Vocal Artist Relationship Specialty Start Date End Date Marshall Briceño MD [address] [place] [address] PCP - General Family Medicine 05/21/23 05/30/25 documented as of this encounter
--- OUTSIDE RECORDS SUMMARY | 2025-06-01 13:03 | XMS_ITS | Clinical Summary ---
Author Organization [facility] Address [address] [place] [address] Care Team Providers Care Cottage Cheese Maker Name Role Phone Edwige Taylor PA Unavailable [phone] Connor Muñoz DO Unavailable [phone] Elpidio Wing MD Primary Care Provider [phone] Allergies Active Allergy Reactions Criticality Noted Date [...] day supply 120 mL 11 5 Active Active Problems No known active problems Resolved Problems Problem Noted Date Diagnosed Date Resolved Date History of lymphoma 05/31/2024 05/31/20 Hyperglycemia 05/31/2024 05/31/2024 Macrocytic anemia 05/31/2024 05/31/2024 [...] outpatient CDI policy. 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[facility]) 07/02/2023 05/31/2024 Wheezing 07/02/2023 05/31/2024 Asthma-chronic obstructive [...] 05/21/2023 05/31/2024 Poor urinary stream 05/21/2023 05/31/20 24 Prostate nodule 05/21/2023 05/31/2024 Ventral hernia 05/21/2023 [...] Encounters Date Type Department Care Team Description 05/24/2025 3:10 PM EDT Procedure Visit [facility] [address] [place] [id number] Gil Little, DPM FACFAS Onychomycosis (Primary Dx); Pain in left toe(s); Pain in right toe(s) 05/24/2025 Bamboo flowsheet [facility] [address] [place] [phone] Gil Little, DPRomie FACFAS 03/15/2025 2:30 PM EDT Office Visit [facility] [address] [place] [phone] Gil Little, DPM FACFAS Venous insufficiency (chronic) (peripheral) (Primary Dx); Onychomycosis; Pain in left toe(s); Pain in right toe(s) 03/15/2025 Bamboo flowsheet [facility] [address] [place] [phone] Gil Little, DPM FACFAS from Last 3 Months Immunizations Immunization Administration [...] Never Smokeless Tobacco: Never Tobacco Cessation:Counseling Given: Yes Alcohol Use Standard Drinks/Week Comments Defer 0 [...] Mass Index 37.73 05/24/2025 3:57 PM EDT Plan of Treatment Upcoming Encounters Date Type Department Care Team (Late st Contact Info) Description 08/02/2025 3:00 PM EST Procedure Visit [facility] [address] [place] [address] Gil Little, DPM FACFAS [address] [facility] [place] [address] 08/03/2025 1:10 PM EST Office [facility] [address] [place] [address] Edwige Taylor PA [address] [facility] [address] [place] [address] Health Maintenance Due Date Last Done Comments Influenza Vaccine (#1) 2025 , 05/11/2023, 05/24/2021, Additional history exists Pneumococcal Vaccine: 65+ Years Completed 05/25/2018, 04/26/2018, 08/04/2017 Insurance [address] [place] [address] [employer] MED[employer]ARE Care Teams Cottage Cheese Maker Relationship Specialty Start Date End Date Elpidio Wing MD [address] [place] [address] PCP - General Family Medicine 03/15/25 Edwige Taylor PA [address] [place] [phone] Physician Assembly Line Machine Operator Dermatology 05/31/24 Connor Muñoz DO [address] [place] [address] Otolaryngology 05/31/24
--- OUTSIDE RECORDS SUMMARY | 2025-06-01 13:03 | XMS_ITS | Encounter Summary ---
Author Organization [facility] Address [address] [place] [address] Care Team Providers Care File Drawer Finisher Name Role Phone Nanette Sherwood MD Primary Care Provider [phone] Marshall Briceño MD Primary Care Provider [phone] Source Comments In the event this information is protected by the Federal Confidentiality of Alcohol and Drug AbusePatient Records regulations: The Federal rules restrict any use of the information to criminally investigate or prosecute any alcohol or drug abuse patient.[facility] Encounter Details Date Type Department Care [...] of Assessment Author No 02/20/2014 11:24 AM BENNYT Love documented as of this encounter Mental Status * Because of a physical, mental, or emotional condition, do you have serious difficulty concentrating, remembering, or making decisions? Answer Entry Date Author No 02/19/2015 11:13 AM Reynolds documented in this encounter Plan of Treatment Upcoming Encounters Date Type Department Care Team (Latest Contact Info) Description 11/24/2025 1:45 PM EDT Office Visit [facility] [address] [place] [address] RV in 6 months with lab 11/24/2025 2:00 PM EDT Visit (SP) Office Hematology/Oncology [address] [place] [address] Ginger Bean APRN.CLIN NURSE [address] [place] [address] RV in 6 months with lab documented as of this encounter Visit Diagnoses Not on filedocumented in this encounter Care Teams File Drawer Finisher Relationship Specialty Start Date End Date Nanette Sherwood MD [address] [place], [place] [id number] PCP - General 08/01/05 07/22/23 Marshall Briceño MD [address] [place], [place] [id number] PCP - General Family Medicine 07/23/23 documented as of this encounter
--- OUTSIDE RECORDS SUMMARY | 2025-06-01 13:03 | XMS_ITS | Encounter Summary ---
Author Organization [facility] Address [address] [place] [address] Care Team Providers Care Drawbench Operator Helper Name Role Phone Edwige Taylor Unavailable [phone] Connor Muñoz DO Unavailable [phone] Elpidio Wing MD Primary Care Provider [phone] Encounter Details Date Type Department Care Team (Late Contact Info) Description 05/24/2025 Bamboo flowsheet [facility] [address] [place] [address] Gil Little, DPM FACFAS [address] [place] [address] Social History Tobacco Use Types Packs/Day Years [...] Encounters Date Type Department Care Team (Late Contact Info) Description 08/02/2025 3:00 PM EST Procedure Visit [facility] [address] [place] [id number] Gil Little, DPM FACFAS [address] [place] [address] 08/03/2025 1:10 PM EST Office Visit [facility] [address] [place] [address] Edwige Taylor PA [address] [place] [address] documented as of this encounter Visit Diagnoses Not on filedocumented in this encounter Care Teams Drawbench Operator Helper Relationship Specialty Start Date End Date Elpidio Wing MD [address] [place] [phone] PCP - General Family Medicine 03/15/25 Edwige Taylor PA [address] [place] [address] Physician Manager Food Safety Dermatology 05/31/24 Connor Muñoz DO [address] [place] [address] Otolaryngology 05/31/24 documented as of this encounter
--- OUTSIDE RECORDS SUMMARY | 2025-06-01 13:04 | XMS_ITS | Clinical Summary ---
Author Organization [facility] Address [address] [place] [address] Care Team Providers Care Gas Main Fitter Name Role Phone Marshall Briceño MD Primary Care Provider [phone] Allergies Active Allergy Reactions Criticality Noted Date Comments Spironolactone Other: See Comments 09/18/2021 Leg cramps, Hyperkalemia Medications PROAIR HFA 90 mcg/actuation inhaler Inhale 1 Puff as instructed as needed. 05/22/20 16 Active polyethylene glycol 3350 (MIRALAX, GLYCOLAX) 17 gram/dose powder MIX 1 TABLESPOONFUL DIRECTED AND DRINK EVERY DAY 3 08/04/20 17 Active acetaminophen -codeine (TYLENOL-COD #3) 300-30 mg per tablet acetaminophen 300 mg-codeine 30 mg tablet Active budesonide (PULMICORT) 1 mg/2 mL nebulizer solution 2 mL. Active ipratropium-a lbuterol (DUONEB) 0.5 mg-3 mg(2.5 mg base)/3 mL nebu INHALE 1 VIAL VIA NEBULIZER EVERY 6 HOURS NEEDED *DX J44.9* 4 02/25/20 19 Active spironolacton e (ALDACTONE) 50 mg tablet spironolactone 50 mg tablet Active tiotropium (SPIRIVA WITH HANDIHALER) 18 mcg inhalation capsule Active CALCIUM CITRATE-VITAM IN D3 ORAL Take by mouth. Acti ve cyanocobalami n, vitamin B-12, (VITAMIN B-12 ORAL) Take by mouth. Active potassium chloride SR (MICRO-K) 10 mEq CR capsule 06/26/20 21 Active furosemide (LASIX) 20 mg tablet q 24 HR. 06/26/20 21 Active influenza vaccine qs 240 mcg, Patients 65 years and older,, PF, (FLUZONE HIGHDOSE QUAD - PF) 240 mcg/0.7 mL injection Fluzone High-Dose Quad (PF) 240 mcg/0.7 mL IM syringe PHARMACY ADMINISTERED Active cholecalcifer ol (VITAMIN D3) 1,000 unit tab tablet Take 1,000 Units by mouth. Active METOPROLOL SUCCINATE ORAL Take 25 mg by mouth once daily. Active doxycycline hyclate (VIBRAMYCIN) 100 mg capsule Take 100 mg by mouth once daily. Active salmeterol (SEREVENT DISKUS) 50 mcg/dose diskus inhaler Inhale 1 Puff as instructed twice daily. Active aspirin, enteric coated (ASPIRIN, ENTERIC COATED) 81 mg EC tablet Take 81 mg by mouth once daily. Active albuterol (PROVENTIL) 2.5 mg /3 mL (0.083 %) nebulizer solution albuterol sulfate 2.5 mg/3 mL (0.083 %) solution for nebulization INHALE 1 VIAL VIA NEBULIZER EVERY 4 HOURS 02/25/20 19 Active TEZSPIRE 210 mg/1.91 mL (110 mg/mL) injection 04/05/20 24 Active levothyroxine (SYNTHROID) 100 mcg tablet Take 100 mcg by mouth daily before breakfast. 2024 Discontinued ferrous sulfate 325 mg (65 mg iron) tablet 05/16/20 21 2024 Discontinued predniSONE (DELTASONE) 10 mg tablet Take 10 mg by mouth once daily. 2024 Discontinued Active Problems Problem Noted Date Diagnosed Date B12 deficiency 07/13/2017 Diffuse large B cell lymphoma 02/21/2013 Encounters Date Type Department Care Team Description 05/26/2025 3:00 PM EDT Visit (SP) Office Hematology/Oncology [address] [place] [address] [place] [address] Ginger Bean APRN.SUPERVISOR CONTINUOUS WELD PIPE MILL MGUS (monoclonal gammopathy of unknown significance) (Primary Dx); History of prostate cancer; Acquired hypothyroidism 05/26/2025 Travel 05/25/2025 Travel 05/15/2025 Telephone Hematology/Oncology [address] [place] [address] 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, bottle cleaner Orders from Last 3 Months Immunizations Immunization Administration Dates Next Due COVID-19 original vaccine, a ge 12+ yr, monovalent (PFIZER-BIONTECH - PURPLE TOP) 11/13/2020,10/22/2020 influenza (HD-IIV3) vaccine, [...] is lower risk 8 06/06/2024 Data from: https://www.neighborhoodatlas.medicine.[facility].edu/. Last address used for calculation [address] [place] [address] [address] 06/06/2024 Sex and Gender Information [...] oz) 05/26/2025 2:44 P M EDT Height 172.7 cm (5' 7.99 ) 04/19/2024 2:18 PM ED T Body Mass Index 29.54 04/19/2024 2:18 PM EDT Plan of Treatment Upcoming Encounters Date Type Department Care Team (Latest Contact Info) Description 11/24/2025 1:45 PM EDT Office Visit [facility] [address] [place] [address] [place] [address] RV in 6 months with lab 11/24/2025 2:00 PM EDT Visit (SP) Office Hematology/Oncology [address] [place] [address] Ginger Bean, LEAD APPLIER.SUPERVISOR CONTINUOUS WELD PIPE MILL [address] [place] [address] RV in 6 months with lab Health Maintenance Due Date Last Done Comments Anxiety Screening 1963 Depression Screening 1963 Hepatitis C Screening 1963 Advance Directive Discussion 08/17/2024 Medicare Advantage Annual We llness Visit 08/17/2024 Covid-19 Vaccine (7 2024-2 6 season) 2025 05/12/2024, 07/02/2023, 06/09/2023, Additional history exists Influenza Vaccine (#1) 2025 , 05/11/2023, 05/24/2021, Additional history exists Diabetes Screening 05/26/2028 05/26/2025, 0 11/15/2024, 04/19/2024, Additional history exists DTaP,Tdap,Td Vaccine (2 - Td or Tdap) 05/09/2030 05/09/2020 Pneumococcal Vaccine: 50+ Completed 2017, 04/26/2018, 08/04/2017 Shingrix Vaccine Completed 07/24/2020, 01/2020, 05/09/2020 RSV Vaccine Completed 03/21/2024 Procedures Procedure Name Priority Date/Time Associated Diagnosis Comments PROTEIN ELECTROPHORESIS SERUM (P) Routine 05/26/2025 3:46 PM EDT MGUS (monoclonal gammopathy of unknown significance) History of prostate cancer PROTEIN, TOTAL (FOR SEPG) Routine 05/26/2025 3:46 PM EDT MGUS (monoclonal gammopathy of unknown significance) History of prostate cancer KAPPA/ARDON,FREE,SER Routine 05/26/2025 3 :46 PM EDT MGUS (monoclonal gammopathy of unknown significance) History of prostate cancer IMMUNOFIXATION SCREEN, SERUM Routine 05/26/2025 3:46 PM EDT MGUS (monoclonal gammopathy of unknown significance) History of prostate cancer IMMUNOGLOBULINS PORTIA Routine 05/26/2025 3 :46 PM EDT MGUS (monoclonal gammopathy of unknown significance) History of prostate cancer PROTEIN ELECTROPHORESIS SERUM W/INTERP Routine 05/26/2025 3:46 PM EDT MGUS (monoclonal gammopathy of unknown significance) History of prostate cancer MONOCLONAL PROTEIN, SERUM (BLOOD) Routine 05/26/2025 3:46 PM EDT MGUS (monoclonal gammopathy of unknown significance) History of prostate cancer PSA/PROSTSPECAG DIAG Routine 05/26/2025 3:46 PM EDT MGUS (monoclonal gammopathy of unknown significance) History of prostate cancer COMPREHENSIVE METABOLIC PANEL Routine 05/26/2025 3:46 PM EDT MGUS (monoclonal gammopathy of unknown significance) History of prostate cancer CBC + DIFF Routine 05/26/2025 3:46 PM EDT MGUS (monoclonal gammopathy of unknown significance) History of prostate cancer from Last 3 Months Results * IMMUNOFIXATION SCREEN, SERUM (05/26/2025 3:46 PM EDT) [facility] MPA Result No M protein is identified. No M protein is identified. 05/30/2025 9:08 AM EDT [facility] Staff Review (MPA) Reviewed by Dr. Constance Ibarra MD 05/30/2025 9:08 AM EDT [facility] Blood BLOOD SPECIMEN / Unknown Venipuncture / Unknown 05/26/2025 3:46 PM EDT 05/26/2025 3:50 PM EDT Arabella Gayle APRN.[facility] Final Resul t Performing Organization Address [facility] [place] [address], * PROTEIN, TOTAL (FOR SEPG) (05/26/2025 3:46 PM EDT) [facility] Protein, Total 6.5 6.3 - 8.0 g/dL 05/27/2025 11:26 AM EDT [facility] Blood BLOOD SPECIMEN / Unknown Venipuncture / Unknown 05/26/2025 3:46 PM EDT 05/26/2025 3:50 PM EDT Arabella Gayle LEAD APPLIER.[facility] Final Resul t Performing Organization Address City/[facility]/ZIP Co de Phone Number [facility] [address] [place] [address], [place] * PROTEIN ELECTROPHORESIS SERUM (P) (05/26/2025 3:46 PM EDT) Albumin for SPE 3.81 3.43 - 5.41 g/dL 05/30/2025 8:30 AM EDT [facility] Alpha 1 Globulin 0.39 0.18 - 0.43 g/dL 05/30/2025 8:30 AM EDT [facility] Alpha 2 Globulin 0.82 0.42 - 0.98 g/dL 05/30/2025 8:30 AM EDT [facility] Beta Globulin 0.72 0.61 - 1.17 g/dL 05/30/2025 8:30 AM EDT [facility] Gamma Globulin 0.77 0.53 - 1.51 g/dL 05/30/2025 8:30 AM EDT [facility] Interpretation (Prot Electro) No definitive M protein is identified on protein electrophores is. No definitive M protein is identified on protein electrophores is. 05/30/2025 8:30 AM EDT [facility] M-Protein Location 05/30/2025 8:30 AM EDT [facility] Comment:Not Applicable. M-Protein Concentration 0.00 <=0.00 g/dL 05/30/2025 8:30 AM EDT [facility] SPE Staff Review Reviewed by Dr. Constance Ibarra MD 05/30/2025 8:30 AM EDT [facility] Blood BLOOD SPECIMEN / Unknown Venipuncture / Unknown 05/26/2025 3:46 PM EDT 05/26/2025 3:50 PM EDT Narrative [facility] - 05/30/2025 8:30 AM EDT Serum electrophoresis test was performed using the [employer]ew[employer] V8 NEXUS capillary electrophoresis method. Results obtained with different assay methods or kits cannot be used interchangeably. us Arabella Gayle LEAD APPLIER.SUPERVISOR [employer] [facility] [facility] Final Resul t [facility] [address] [place] [address], [place] * (ABNORMAL) KAPPA/ARDON,FREE,SER (05/26/2025 3:46 PM EDT) [place] Free, Serum 25.9(H) 3.3 - 19.4 mg/L 05/29/2025 5:31 PM EDT [facility] Comment: Rarely, increased serum free light chains levels may not be detected or accurately quantified due to prozone phenomenon or in high viscosity samples using this immunoturbidimetric assay. Correlation with other laboratory results and clinical findings is recommended. The [place] Free Light Chain was performed using the Binding Site Optilite immunoturbidimetric method. Result obtained with different assay methods or kits cannot be used interchangeably. [place] Free, Serum 16.1 5.7 - 26.3 mg/L 05/29/2025 5:31 PM EDT [facility] Comment: Rarely, increased serum free light chains levels may not be detected or accurately quantified due to prozone phenomenon or in high viscosity samples using this immunoturbidimetric assay. Correlation with other laboratory results and clinical findings is recommended. The [place] Free Light Chain was performed using the Binding Site Optilite immunoturbidimetric method. Result obtained with different assay methods or kits cannot be used interchangeably. K/L Ratio, Serum 1.61 0.26 - 1.65 05/29/2025 5:31 PM EDT [facility] Blood BLOOD SPECIMEN / Unknown Venipuncture / Unknown 05/26/2025 3:46 PM EDT 05/26/2025 3:50 PM EDT us Arabella Gayle LEAD APPLIER.SUPERVISOR CONTINUOUS [employer] [facility] Final Resul t [facility] [address] [place] [address], [place] * PROSTATE-SPECIFIC ANTIGEN DIAGNOSTIC (05/26/2025 3:46 PM EDT) PSA 0.24 <2.60 ng/mL 05/27/2025 11:42 AM EDT [facility] Comment:Total PSA test metho dology used is the Electrochemiluminescence Immunoassay by [employer]. Total PSA values by differing methodologies cannot be interchanged. Blood BLOOD SPECIMEN / Unknown Venipuncture / Unknown 05/26/2025 3:46 PM EDT 05/26/2025 3:50 PM EDT Arabella Gayle LEAD APPLIER.SUPERVISOR CONTINUOUS [employer] [facility] Final Resul t Performing Organization Address [facility] Co de Phone Number [facility] [address] [place] [address], [place] * IMMUNOGLOBULINS,IGG,IGA,IGM (05/26/2025 3:46 PM EDT) IgG 894 700 - 1,600 mg/dL 05/27/2025 9:59 PM EDT [facility] IgA 111 70 - 400 mg/dL 05/27/2025 9:59 PM EDT [facility] IgM 75 40 - 230 mg/dL 05/27/2025 9:59 PM EDT [facility] Blood BLOOD SPECIMEN / Unknown Venipuncture / Unknown 05/26/2025 3:46 PM EDT 05/26/2025 3:50 PM EDT Arabella Gayle LEAD APPLIER.[facility] Final Resul t Performing Organization Address [facility] de Phone Number [facility] [address] [place] [address], [place] * (ABNORMAL) COMPREHENSIVE METABOLIC PANEL (05/26/2025 3:46 PM EDT) Protein, Total 7.0 6.3 - 8.0 g/dL 05/27/2025 11:35 AM EDT [facility] Albumin 4.2 3.9 - 4.9 g/dL 05/27/2025 11:35 AM EDT [facility] Calcium, Total 9.2 8.5 - 10.2 mg/dL 05/27/2025 11:35 AM EDT [facility] Bilirubin, Total 0.6 0.2 - 1.3 mg/dL 05/27/2025 11:35 AM [facility] Alkaline Phosphatase 108 38 - 113 U/L 05/27/2025 11:35 AM [facility] AST 13(L) 14 - 40 U/L 05/27/2025 11:35 AM [facility] ALT 11 10 - 54 U/L 05/27/2025 11:35 AM [facility] Glucose 95 74 - 99 mg/dL 05/27/2025 11:35 AM [facility] Comment: The [place] Diabetes Association (ADA) provides guidance for cutoff [...] Standards of Medical Care in Diabetes 2016, [place] [employer] Association. Diabetes Care. 2016.39(Suppl 1). BUN 15 9 - 24 mg/dL 05/27/2025 11:35 AM [facility] Creatinine 1.03 0.73 - 1.22 mg/dL 05/27/2025 11:35 AM [facility] Sodium 142 136 - 144 mmol/L 05/27/2025 11:35 AM [facility] Potassium 4.8 3.7 - 5.1 mmol/L 05/27/2025 11:35 AM [facility] Chloride 106 98 - 107 mmol/L 05/27/2025 11:35 AM [facility] CO2 22 22 - 30 mmol/L 05/27/2025 11:35 AM [facility] Anion Gap 14 8 - 15 mmol/L 05/27/2025 11:35 AM [facility] Estimated Glomerular Filtration Rate 74 >=60 mL/min/1.7 3m 05/27/2025 11:35 AM [facility] Comment:Estimated Glomerular Filtration Rate (eGFR) [...] BLOOD SPECIMEN / Unknown Venipuncture / Unknown 05/26/2025 3:46 PM EDT 05/26/2025 3:50 PM EDT us Arabella Gayle LEAD APPLIER.SUPERVISOR CONTINUOUS WELD PIPE M[employer] [facility] Final Resul t [facility] [address] [address], [place] * (ABNORMAL) COMPLETE BLOOD COUNT AND DIFFERENTIAL (05/26/2025 3:46 PM EDT) WBC 4.05 3.70 - 11.00 k/uL 05/26/2025 3:53 PM EDT [facility] RBC 3.23(L) 4.20 - 6.00 m/uL 05/26/2025 3:53 PM EDT [facility] Hemoglobin 11.0(L) 13.0 - 17.0 g/dL 05/26/2025 3:53 PM EDT [facility] Hematocrit 35.3(L) 39.0 - 51.0 % 05/26/2025 3:53 PM EDT [facility] MCV 109.3(H) 80.0 - 100.0 fL 05/26/2025 3:53 PM EDT [facility] MCH 34.1(H) 26.0 - 34.0 pg 05/26/2025 3:53 PM EDT [facility] MCHC 31.2 30.5 - 36.0 g/dL 05/26/2025 3:53 PM EDT [facility] RDW-CV 16.3(H) 11.5 - 15.0 % 05/26/2025 3:53 PM EDT [facility] Platelet Count 168 150 - 400 k/uL 05/26/2025 3:53 PM EDT [facility] MPV 11.1 9.0 - 12.7 fL 05/26/2025 3:53 PM EDT [facility] Neutrophils % 35.5 % 05/26/2025 3:53 PM EDT [facility] Abs Neut 1.44(L) 1.45 - 7.50 k/uL 05/26/2025 3:53 PM EDT [facility] Lymphocytes % 22.0 % 05/26/2025 3:53 PM EDT [facility] Abs Lymph 0.89(L) 1.00 - 4.00 k/uL 05/26/2025 3:53 PM EDT [facility] Monocytes % 39.0 % 05/26/2025 3:53 PM EDT [facility] Abs [place] 1.58(H) <0.87 k/uL 05/26/2025 3:53 PM EDT [facility] Eosinophils % 1.0 % 05/26/2025 3:53 PM EDT [facility] Abs Eosin 0.04 <0.46 k/uL 05/26/2025 3:53 PM EDT [facility] Basophils % 0.5 % 05/26/2025 3:53 PM EDT [facility] Abs Baso <0.03 <0.11 k/uL 05/26/2025 3:53 PM EDT [facility] Immature Granulocytes % 2.0 % 05/26/2025 3:53 PM EDT [facility] Abs Immature Gran 0.08 <0.10 k/uL 05/26/2025 3:53 PM EDT [facility] NRBC 0.0 /100 WBC 05/26/2025 3:53 PM EDT [facility] Absolute nRBC <0.01 <0.01 k/uL 05/26/2025 3:53 PM EDT [facility] Diff Type Auto 05/26/2025 3:53 PM EDT [facility] Blood BLOOD SPECIMEN / Unknown Venipuncture / Unknown 05/26/2025 3:46 PM EDT 05/26/2025 3:50 PM EDT us Arabella Gayle LEAD APPLIER.SUPERVISOR CONTINUOUS [employer] [facility] Final Resul t [facility] [address] [place] [address] from Last 3 Months Insurance [facility] PPO Care Teams Gas Main Fitter Relationship Specialty Start Date End Date Marshall Briceño MD [address] [place] [id number] PCP - General Family Medicine 07/23/23
--- OUTSIDE RECORDS SUMMARY | 2025-06-01 13:04 | XMS_ITS | Encounter Summary ---
Author Organization [facility] Address [address] [place] [address] Care Team Providers Care Back Gray Cloth Washer Name Role Phone Nanette [place] MD Primary Care Provider [phone] Marshall Briceño MD Primary Care Provider [phone] Source Comments In the event this information is protected by the Federal Confidentiality of Alcohol and Drug AbusePatient Records regulations: The Federal rules restrict any use of the information to criminally investigate or prosecute any alcohol or drug abuse patient.[facility] Encounter Details Date Type Department Care [...] N ot on file 07/22/2020 Data from: [email or web address].[email or web address]/. Last address used for calculation [...] Description 11/24/2025 1:45 PM EDT Office Visit [facility] [address] [place] [address] RV in 6 months with lab 11/24/2025 2:00 PM EDT Visit (SP) Office Hematology/Oncology [address] [place] [address] Ginger Bean APRN.SHOE COBBLER [address] [place] [address] RV in 6 months with lab documented as of this encounter Visit Diagnoses Not on filedocumented in this encounter Care Teams Back Gray Cloth Washer Relationship Specialty Start Date End Date Nanette [place] MD [address] [place] [address] PCP - General 08/01/05 07/22/23 Marshall Briceño MD [address] [place] [address] PCP - General Family Medicine 07/23/23 documented as of this encounter
--- OUTSIDE RECORDS SUMMARY | 2025-06-01 13:04 | XMS_ITS | Clinical Summary ---
Author Organization [facility] Address [address] [place] [address] Care Team Providers Care Second Baller Name Role Phone Deven Alves MD Unavailable [phone] Tyler Draper MD Unavailable [phone] Elpidio Wing MD Primary Care Provider [phone] Allergies Active Allergy Reactions Criticality Noted Date Comments Spironolactone Other (See Comments) 09/18/2021 Leg cramps, Hyperkalemia Medications furosemide (LASIX) 20 mg tablet Take 40 mg by mouth as needed in the morning. 1 Active potassium chloride (MICRO-K) 10 mEq CR capsule Take 10 mEq by mouth as needed in the morning. Takes when takes lasix. 1 Active levothyroxine 100 mcg tablet Take 100 mcg by mouth once daily before a meal. 1 Active cyanocobalamin (VITAMIN B-12) 1,000 mcg tablet Take 1,000 mcg by mouth in the morning. Active aspirin (ECOTRIN LOW STRENGTH) 81 mg delayed release tablet Take 81 mg by mouth once daily before a meal. 0 Active calcium carbonate 1,250 mg (500 mg calcium) tablet Take 1,250 mg by mouth in the morning. Active cholecalciferol (VITAMIN D3) 25 mcg (1,000 unit) tablet Take 1,000 units by mouth in the morning. Active albuterol 90 mcg/actuation HFA inhaler Inhale 2 puffs by mouth as needed. Active calcium carb/vit D3/minerals (CALCIUM-VITAMIN D ORAL) 9 Active METOPROLOL SUCCINATE ORAL Take 25 mg by mouth in the morning. Active cyanocobalamin (vitamin B-12) 1,000 mcg tablet Take 1,000 mcg by mouth in the morning. 9 Active ipratropium 42 mcg (0.06 %) nasal spray Place 2 sprays in each nostril two times daily. 15 mL 3 4 Active Additional Information Patient not taking.Reported on 03/09/2025 azelastine 137 mcg (0.1 %) nasal spray Place 1 spray in each nostril two times daily. 30 mL 6 4 Active montelukast 10 mg tablet Take 1 tablet (10 mg) by mouth once daily. 90 tablet 4 5 02/10/20 Active salmeteroL (SEREVENT DISKUS) 50 mcg/dose disk [...] daily. 270 mL 5 02/10/20 26 Active Additional Information Patient not taking.Reported on 03/09/2025 budesonide (PULMICORT RESPULES) 1 mg/2 mL NEB solution Inhale 2 mL (1 mg) via nebulizer two times daily. 360 mL 5 02/10/20 26 Active ensifentrine (OHTUVAYRE) 3 mg/2.5 mL Suspension for NebulizationIndi cations:Asthma-C OPD overlap syndrome (CMS/HCC),Dyspne a, unspecified type,COPD exacerbation (CMS/HCC) Inhale 3 mg via nebulizer two times daily. 150 mL 12 5 Active ensifentrine 3 mg/2.5 mL Suspension for NebulizationIndi cations:Asthma-C OPD overlap syndrome (CMS/HCC) Inhale 3 mg by mouth two times daily. 150 mL 12 Active predniSONE 10 mg tablet pack Take 10 mg by mouth once daily. Take as directed on the package instructions. Active amoxicillin-clav ulanate 500-125 mg tablet Take 1 tablet by mouth two times daily. Active dextromethorphan -guaiFENesin (ROBITUSSIN-DM) 10-100 mg/5 mL syrup Take 5-10 mL by mouth every four to six hours as needed. Active doxycycline monohydrate 100 mg tablet Take 100 mg by mouth in the morning and 100 mg in the evening. Active senna-docusate 8.6-50 mg tablet Take 1 tablet by mouth once daily. Active tiotropium (SPIRIVA WITH HANDIHALER) 18 mcg capsule for inhaler Inhale the contents of 1 capsule (18 mcg) via inhaler once daily. 90 capsule 4 5 06/03/20 26 Active Hospital, Clinic, or Other Facility Administered Medication Ordered Dose Route Frequency Start Date End Date Status albuterol (PROAIR HFA) inhaler 4 puffIndications:Asthma-COPD overlap syndrome (CMS/HCC) 4 puff Inhl PRN 10/08/2023 Active Active Problems Patient Care Coordination No te Formatting of this note migh t be different from the original. PCP Marshall Briceño M.D. ph. [phone]. 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 Floor B1 Vessel Crew Member B [address] [facility] [address] [place] [address] Asthma-COPD overlap syndrome (CMS/HCC) Discharge Disposition: 11 Home or Self Care 03/10/2025 Results Follow-Up [facility] Pulmonary Clinic [facility] Floor 3 Vessel Crew Member C [address] [place] [address] Dr [address] [place] [address] Mayra Berg MD XR Chest PA and Lateral 03/09/2025 1:40 PM EDT - 03/09/2025 11:59 PM EDT Hospital Encounter [facility] Radiology [facility] Floor 2 Vessel Crew Member A [address] [place] [address] Dr [address] [place] [address] Asthma-COPD overlap syndrome (CMS/HCC) Discharge Disposition: 11 Home or Self Care 03/09/2025 1:00 PM EDT Office Visit [facility] Pulmonary [facility] Floor 3 Vessel Crew Member C [address] [place] [address] Dr [address] [place] [address] Mayra Berg MD Asthma-COPD overlap syndrome (CMS/HCC) (Primary Dx); Cough, unspecified type; Dyspnea, unspecified type; Radiation fibrosis of lung; Recurrent pneumonia; Chronic sinusitis, unspecified location 03/09/2025 11:37 AM EDT - 03/09/2025 1:39 PM EDT Hospital Encounter [facility] Pulmonary Function Lab [facility] Floor 3 Vessel Crew Member C [address] [place] [address] Dr [address] [place] [address] Cystic fibrosis (CMS/HCC) Discharge Disposition: 11 Home or Self Care from Last 3 Months Family History Medical [...] Sign Reading Time Taken Comments Blood Pressure 129/50 03/09/2025 12:50 PM EDT Pulse 67 03/09/2025 12:50 PM EDT Temperature 36.1 C (97 F) 03/09/2025 12:50 PM EDT Respiratory Rate 18 03/09/2025 12:50 PM EDT Oxygen Saturation 90% 03/09/2025 12:50 PM EDT Inhaled Oxygen Concentration - - Weight 91.4 kg (201 lb 6.4 oz) 03/09/2025 12:50 PM EDT Height 161 cm (5' 3.4 ) 03/09/2025 12:50 PM EDT Body Mass Index 35.23 03/09/2025 12:50 PM EDT Plan of Treatment Upcoming Encounters Date Type Department Care Team (Late st Contact Info) Description 09/07/2025 10:45 AM EST Appointment [facility] Pulmonary Function Lab [facility] Floor 3 Vessel Crew Member [address] [place] [address] 09/07/2025 11:00 AM EST Office Visit [facility] Pulmonary Clinic [facility] Floor 3 Vessel Crew Member [address] [place] [phone] Mayra Berg MD [address] [place] [address] Dr [address] [facility] Floor 3 Vessel Crew Member [place] [phone] Health Maintenance Due Date Last Done Comments Hepatitis C Screening 1945 Respiratory Syncytial Virus (RSV) or ages 60 years and older (1 - 1-dose 75+ series) 2022 COVID-19 Vaccine ( - season) 2025 05/12/2024, 07/02/2023, 06/25/2021, Additional history exists Influenza Vaccine (#1) 2025 , 05/12/2024, 05/11/2023, Additional history exists DTaP,Tdap,and Td Vaccines (2 - Td or Tdap) 05/09/2030 05/09/2020 Pneumococcal Vaccines 50years + Completed 05/25/2018, 04/26/2018, 08/04/2017 Zoster Recombinant Vaccines Completed 03/2020, 07/22/2020, 05/09/2020 Respiratory Syncytial Virus (RSV) ages 0 thru 19 months Aged Out No longer el igible based on patient's age to complete this topic Procedures Procedure Name Priority Date/Time Associated Diagnosis Comments CT OFC CHEST Routine 03/10/2025 10:51 AM EDT Asthma-COPD overlap syndrome (CMS/HCC) XR CHEST 2 VIEWS Routine 03/09/2025 2:15 PM EDT Asthma-COPD overlap syndrome (CMS/HCC) PFT FVC (MAR) DLCO Routine 03/09/2025 12:42 PM EDT Cystic fibrosis (CMS/[facility]) from Last 3 Months Results * CT OFC CHEST (03/10/2025 10:51 AM EDT) 03/02/2025 5:09 PM EDT Impressions POWERSCRIBE - 03/24/2025 7:25 AM EDT IMPRESSION: 1. Considerably limited examination due to breathing throughout the examination. New bandlike multifocal parenchymal abnormality in the right lower lobe primarily posterior segment consistent with atelectasis and the nonvisualization of the segmental and smaller airways in this location consistent with mucoid impaction or aspiration, incompletely evaluated. 2. Intermittent moderate to severe expiratory dynamic airway collapse of the trachea and main bronchi visible due to breathing throughout the examination. 3. Focal right upper lobe apical and paramediastinal fibrosis in a pattern consistent with radiation treatment. PLEASE NOTE: Our interpretation of studies performed at an outside institution is limited by factors including the absence of technical specifics of the image, undisclosed clinical information and the unavailability of the original interpretation. We suggest that you obtain the original interpretation from the site where the study was performed. Specialists at the institution that performed the study may have access to information not available to us that could make a difference in this interpretation. . Narrative POWERSCRIBE - 03/24/2025 7:25 AM EDT PROCEDURE: CONSULTATION OUTSIDE CHEST CT CLINICAL INDICATION: pneumonia, asthma COMPARISON: Outside HRCT 06/09/2023, outside CTA chest 05/15/2021 TECHNIQUE: CT examination acquisition dated 03/02/2025 from [facility] labeled with the patients name was submitted for review. 3 mm thick axial images were obtained from lung apices to bases without intravenous contrast with multiplanar reconstructions. Images were loaded to the PACS archive and reviewed on a PACS workstation. (DFOV = 378 mm) FINDINGS: Lower Neck & Thyroid: Normal. Lungs: [place] motion artifact throughout the examination, considerably limits evaluation of lung detail including large portions of the upper lobes and lower lobes. Within this limitation there is unchanged right upper lobe apical and paramediastinal fibrosis with traction bronchiectasis and architectural distortion and volume loss with subtle groundglass opacity suggesting prior radiation treatment, within which there is a calcified granuloma. Incompletely evaluated new dense multifocal bandlike abnormality in the posterior medial right lower lobe primarily in dependent opacity along the pleural surface consistent with atelectasis with nonvisualization of the segmental airways in this location, very poorly evaluated due to 3 mm slice thickness and motion artifact Central Airway: Expiratory airway collapse intermittently throughout the examination involving the trachea and main bronchi visible due to breathing throughout the examination. Pleura: No pleural effusion, thickening or pneumothorax. Thoracic Aorta & Great Vessels: Normal in diameter. Mild atherosclerotic calcification and mild aortic valve calcification. Common origin of the innominate and left common carotid arteries, a normal variant. Pulmonary Arteries: Normal diameter. Heart & Pericardium: Mild coronary arterial calcification. Normal cardiac morphology and pericardium with extensive mitral annulus calcification. Lymph Nodes: No enlarged thoracic lymph nodes. Calcified right hilar lymph nodes again indicates evidence of prior granulomatous infection, such as histoplasmosis or tuberculosis. Mediastinum & Esophagus: Normal. Thoracic Spine & Chest Wall: Degenerative changes with normal thoracic vertebral body heights with markedly severe nearly T5 compression deformity with minimal remaining vertebral body anteriorly and 5 mm in height near the posterior elements with focal exaggerated kyphosis. Severe diffuse bone demineralization consistent with osteoporosis, with the L1 vertebral body measuring less than 100 HU. Unchanged subtle areas of bilateral anterolateral upper and mid rib sclerosis/irregularity consistent with insufficiency fractures. Unchanged mild to moderate symmetric bilateral gynecomastia. Other Lines/Tubes/Devices/Hardware: Left chest wall cardiac implantable electronic device lead tips in right atrium and right ventricle. Visualized Upper Abdomen: Within the limits of this noncontrast enhanced exam, note again made of calcified hepatic and splenic granulomas with diffuse fat infiltration of the liver. Partially visualized exophytic right renal cyst. Procedure Note Maria Antonia Elizondo MD - 03/24/2025 PROCEDURE: CONSULTATION OUTSIDE CHEST CT CLINICAL INDICATION: pneumonia, asthma COMPARISON: Outside HRCT 06/09/2023, outside CTA chest 05/15/2021 TECHNIQUE: CT examination acquisition dated 03/02/2025 from [facility] labeled with the patients name was submitted for review. 3 mm thick axial images were obtained from lung apices to bases without intravenous contrast with multiplanar reconstructions. Images were loaded to the PACS archive and reviewed on a PACS workstation. (DFOV = 378 mm) FINDINGS: Lower Neck & Thyroid: Normal. Lungs: [place] motion artifact throughout the examination, considerably limits evaluation of lung detail including large portions of the upper lobes and lower lobes. Within this limitation there is unchanged right upper lobe apical and paramediastinal fibrosis with traction bronchiectasis and architectural distortion and volume loss with subtle groundglass opacity suggesting prior radiation treatment, within which there is a calcified granuloma. Incompletely evaluated new dense multifocal bandlike abnormality in the posterior medial right lower lobe primarily in dependent opacity along the pleural surface consistent with atelectasis with nonvisualization of the segmental airways in this location, very poorly evaluated due to 3 mm slice thickness and motion artifact Central Airway: Expiratory airway collapse intermittently throughout the examination involving the trachea and main bronchi visible due to breathing throughout the examination. Pleura: No pleural effusion, thickening or pneumothorax. Thoracic Aorta & Great Vessels: Normal in diameter. Mild atherosclerotic calcification and mild aortic valve calcification. Common origin of the innominate and left common carotid arteries, a normal variant. Pulmonary Arteries: Normal diameter. Heart & Pericardium: Mild coronary arterial calcification. Normal cardiac morphology and pericardium with extensive mitral annulus calcification. Lymph Nodes: No enlarged thoracic lymph nodes. Calcified right hilar lymph nodes again indicates evidence of prior granulomatous infection, such as histoplasmosis or tuberculosis. Mediastinum & Esophagus: Normal. Thoracic Spine & Chest Wall: Degenerative changes with normal thoracic vertebral body heights with markedly severe nearly T5 compression deformity with minimal remaining vertebral body anteriorly and 5 mm in height near the posterior elements with focal exaggerated kyphosis. Severe diffuse bone demineralization consistent with osteoporosis, with the L1 vertebral body measuring less than 100 HU. Unchanged subtle areas of bilateral anterolateral upper and mid rib sclerosis/irregularity consistent with insufficiency fractures. Unchanged mild to moderate symmetric bilateral gynecomastia. Other Lines/Tubes/Devices/Hardware: Left chest wall cardiac implantable electronic device lead tips in right atrium and right ventricle. Visualized Upper Abdomen: Within the limits of this noncontrast enhanced exam, note again made of calcified hepatic and splenic granulomas with diffuse fat infiltration of the liver. Partially visualized exophytic right renal cyst. IMPRESSION: IMPRESSION: 1. Considerably limited examination due to breathing throughout the examination. New bandlike multifocal parenchymal abnormality in the right lower lobe primarily posterior segment consistent with atelectasis and the nonvisualization of the segmental and smaller airways in this location consistent with mucoid impaction or aspiration, incompletely evaluated. 2. Intermittent moderate to severe expiratory dynamic airway collapse of the trachea and main bronchi visible due to breathing throughout the examination. 3. Focal right upper lobe apical and paramediastinal fibrosis in a pattern consistent with radiation treatment. PLEASE NOTE: Our interpretation of studies performed at an outside institution is limited by factors including the absence of technical specifics of the image, undisclosed clinical information and the unavailability of the original interpretation. We suggest that you obtain the original interpretation from the site where the study was performed. Specialists at the institution that performed the study may have access to information not available to us that could make a difference in this interpretation. . Mayra Berg MD RAD [facility] INTERPRET Final Resu lt POWERSCRIBE * XR CHEST 2 VIEWS (03/09/2025 2:15 PM EDT) Anatomical Region Laterality Modality Chest Digital Radiogra phy 03/09/2025 1:53 PM EDT Impressions 03/09/2025 5:48 PM EDT IMPRESSION: 1. Unchanged left chest wall pacemaker with leads in the right atrium and right ventricle. 2. No sizable pleural effusions. No pneumothorax. No acute focal consolidation. 3. Unchanged cardiomediastinal silhouette. . Narrative 03/09/2025 5:48 PM EDT PROCEDURE: CHEST, TWO VIEWS (PA and Lateral), 03/09/2025 13:56 hours CLINICAL INDICATION: recent PNA, right pleural effusion on outside imaging. COMPARISON: Two-view chest April 21, 2024. Procedure Note Trent Gonzalez MD - 03/09/2025 PROCEDURE: CHEST, TWO VIEWS (PA and Lateral), 03/09/2025 13:56 hours CLINICAL INDICATION: recent PNA, right pleural effusion on outside imaging. COMPARISON: Two-view chest April 21, 2024. IMPRESSION: IMPRESSION: 1. Unchanged left chest wall pacemaker with leads in the right atrium and right ventricle. 2. No sizable pleural effusions. No pneumothorax. No acute focal consolidation. 3. Unchanged cardiomediastinal silhouette. . us Mayra Berg MD RAD XRAY Final Result * PFT FVC (MAR) DLCO (03/09/2025 12:42 PM EDT) Fvc Base Pred 2.94 L [facility] PFT Fvc Base Actl 1.94 L [facility] PFT Fvc Base % Pred 65 % [facility] PFT Fev1 Base Pred 2.23 L [facility] PFT Fev1 Base Actl 1.23 L [facility] PFT Fev1 Base % Pred 55 % [facility] PFT FEV6 BASE PRED 2.82 L [facility] PFT FEV6 BASE ACTL 1.92 L [facility] PFT FEV6 BASE % PRED 68 % [facility] PFT Fev1/Fvc Base Pred 77 % [facility] PFT Fev1/Fvc Base Actl 64 % [facility] PFT Fev1/Fvc Base % Pred 82 % [facility] PFT FEFMAX BASE PRED 7.48 L/sec [facility] PFT FEFMAX BASE ACTL 2.73 L/sec [facility] PFT FEFMAX BASE % PRED 36 % [facility] PFT Rca18-85% Base Pred 1.78 L/sec [facility] PFT Wwd48-44% Base Actl 0.63 L/sec [facility] PFT Ven75-10% Base % Pred 35 % [facility] PFT FET BASE ACTL 2 sec [facility] PFT Fivc Base Actl 1.54 L [facility] PFT Fif50% Base Pred 4.25 L/sec [facility] PFT Fif50% Base Actl 1.65 L/sec [facility] PFT Fif50% Base % Pred 38 % [facility] PFT FIFMAX BASE ACTL 1.90 L/sec [facility] PFT Fef/Fif50 Base Pred 62 % [facility] PFT Fef/Fif50 Base Actl 50 % [facility] PFT Fef/Fif50 Base % Pred 80 % [facility] PFT Vc Base Pred 2.94 L [facility] PFT Vc Base Actl 2.47 L [facility] PFT Vc Base % Pred 84 % [facility] PFT Ic Base Pred 2.36 L [facility] PFT Ic Base Actl 2.14 L [facility] PFT Ic Base % Pred 90 % [facility] PFT Erv Base Pred 0.87 L [facility] PFT Erv Base Actl 0.33 L [facility] PFT Erv Base % Pred 37 % [facility] PFT Dlco Base Pred 20.19 ml/min/mmHg [facility] PFT Dlco Base Actl 10.07 ml/min/mmHg [facility] PFT Dlco Base % Pred 49 % [facility] PFT Va Base Pred 4.98 L [facility] PFT Va Base Actl 3.52 L [facility] PFT Va Base % Pred 70 % [facility] PFT Dlco/Va Base Pred 4.06 ml/min/mmHg /L [facility] PFT Dlco/Va Base Actl 2.86 ml/min/mmHg /L [facility] PFT Dlco/Va Base % Pred 70 % [facility] PFT IVC BASE ACTL 2.10 L [facility] PFT Anatomical Region Laterality Modality PFT 03/09/2025 12:2 1 PM EDT Narrative 03/09/2025 1:39 PM EDT Dorian Juarez is a 79 y.o. male seen for a Pft adult standard with dlco spirometry exam performed on 03/09/25 at [facility] Pulmonary Function Lab [facility] SPIROMETRY: No obstructive ventilatory defect. FVC is reduced, which can indicate a restrictive ventilatory defect. Full PFTs, including TLC, are required for confirmation if clinically indicated. DIFFUSION: Moderate gas exchange impairment. OXIMETRY: Low but adequate oximetry on room air at rest. COMPARISON: Significant improvement in FEV1 but no significant change in FVC or DLCO compared to 11/16/2024. OTHER: Narrowed and coved flow volume loop. Donny Aguirre MD PFT ORDERABLES Final Result from Last 3 Months Additional Health Concerns Infection Onset Date Last Indicated CF or CRMS 02/21/2025 02/21/2025 Insurance [facility] MEDICARE PPO Care Teams Second Baller Relationship Specialty Start Date End Date Elpidio Wing MD [address] [place] [phone] PCP - General Family Medicine 03/31/25 Deven Alves MD [address] [place] [address] [address] [place] [phone] Clinical Medical Transcriptionist Cardiology 10/21/23 Tyler Draper MD [address] [place] [address] [address] [place] [address] Internal Medicine 02/08/24
--- OUTSIDE RECORDS SUMMARY | 2025-06-01 13:04 | XMS_ITS | Clinical Summary ---
Author Organization [facility] Address [address] [place] [address] Care Team Providers Care Composite Science Teacher Name Role Phone Elpidio Wing MD Primary Care Provider Allergies No known active allergies Medications aspirin 81 mg chewable tablet in the morning. Acti ve budesonide (Pulmicort) 0.5 mg/2 mL nebulizer solution budesonide 0.5 mg/2 mL suspension for nebulization 02/25/20 19 Active cholecalcifero l (Vitamin D-3) 25 MCG (1000 UT) tablet Take 1,000 Units by mouth in the morning. Active levothyroxine (Synthroid, Levoxyl) 100 mcg tablet Synthroid 100 mcg tablet Take 1 tablet every day by oral route. 02/25/20 19 Active tiotropium (Spiriva with HandiHaler) 18 mcg inhalation capsule Spiriva with HandiHaler 18 mcg and inhalation capsules 02/25/20 19 Active salmeterol (Serevent Diskus) 50 mcg/dose diskus inhaler Serevent Diskus 50 mcg/dose powder for inhalation 06/05/20 21 Active albuterol 90 mcg/actuation inhaler ProAir HFA 90 mcg/actuation aerosol inhaler Inhale 2 puffs every 4 hours by inhalation route. 05/22/20 16 Active gabapentin (Neurontin) 300 mg capsule Take 300 mg by mouth at bedtime. 05/11/20 23 Active montelukast (Singulair) 10 mg tablet Take 10 mg by mouth in the morning. 07/02/20 23 Active potassium chloride ER (Micro-K) 10 mEq ER capsuleIndicat ions:NSVT (nonsustained ventricular tachycardia) (CMS/HCC) Take 1 capsule (10 mEq) by mouth once daily as directed. Do not crush or chew. 90 capsule 3 07/28/20 23 Active metoprolol succinate XL (Toprol-XL) 25 mg 24 hr tabletIndicati ons:NSVT (nonsustained ventricular tachycardia) (CMS/HCC) TAKE 1 TABLET BY MOUTH AT BEDTIME (DO NOT CRUSH OR CHEW) 90 tablet 3 04/12/20 25 Active furosemide (Lasix) 40 mg tabletIndicati ons:Dyspnea on exertion TAKE 1 TABLET BY MOUTH IN THE MORNING 90 tablet 3 05/22/20 25 Active furosemide (Lasix) 40 mg tabletIndicati ons:Dyspnea on exertion Take 1 tablet (40 mg) by mouth in the morning. 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 Former tobacco use 05/31/2025 snf current use of inhaled steroid 025 Lumbar radiculopathy 05/31/2025 Prolonged QT interval 05/31/2025 Uncomplicated severe persistent asthma Hyperglycemia 10/21/2024 Chronic hypoxic respiratory failure 04/15/2024 [...] Encounters Date Type Department Care Team Description 05/23/2025 11:00 AM EDT Ancillary Procedure [facility] [address] [place] [address] Encounter for implantable defibrillator reprogramming or check 05/20/2025 Refill [facility] [address] [place] [address] Rodolfo Easton MD Dyspnea on exertion 04/11/2025 Refill [facility] [address] [place] [address] Rodolfo Easton MD NSVT (nonsustained ventricular tachycardia) (CMS/HCC) from Last 3 Months Family History Medical [...] Heterosexual or Straight 08/2024 9:50 AM EDT Last Filed Vital Signs Vital Sign Reading [...] 10/21/2024 11:49 AM EST Plan of Treatment Upcoming Encounters Date Type Department Care Team (Late st Contact Info) Description 06/02/2025 2:45 PM EDT Office Visit [facility] [address] [place] [address] Rodolfo Easton MD [phone] [facility] [place] [id number] Health Maintenance Due Date Last Done Comments Medicare Annual Wellness (AWV) 1945 Depression Screening 1959 Fall Risk Screening 2012 COVID-19 Vaccine ( season) 2025 05/12/2024, 05/12/2024, 07/02/2023, Additional history exists Influenza Vaccine (#1) 2025 4, 05/11/2023, 05/24/2021, Additional history exists Adult Tetanus [...] Encounter for implantable defibrillator reprogramming or check from Last 3 Months Results * CARDIAC DEVICE CHECK - IN CLINIC - [facility] W/ PROG (05/23/2025 2:04 PM EDT) Anatomical Region Laterality Modality Other Narrative 05/29/2025 9:44 AM EDT Normal device function us Connor Roberts MD CV IMPLANTABLE CARDIAC DEVICE AR OCEDURES Final Result from Last 3 Months Insurance [address] [place] [address] [employer] MEDICARE Care Teams Composite Science Teacher Relationship Specialty Start Date End Date Elpidio Wing MD [address] [facility] [place], [place] [id number] PCP - General Family Medicine 05/31/25
--- OUTSIDE RECORDS SUMMARY | 2025-06-01 13:04 | XMS_ITS ---
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
--- OUTSIDE RECORDS SUMMARY | 2025-06-01 13:04 | XMS_ITS | Patient Health Record ---
Author Organization [facility] [place] Address [address] [place] [address] Care Team Providers Care Correctional Maintenance Technician Name Role Phone Domenico Fraga Primary Care Provider Chester Ferro Norman [phone] Allergies Allergen (clinical drug ingredient) Drug/Non Drug Allergy documented on EMR Reaction Allergy Type Onset Date Status Latex Latex (uncoded) rash Allergy Acti ve Results Component Value Reference Range Notes UA (CLEAN or CATCH) TELEVISION SCRIPT WRITER or M ICRO IF IND. Reviewed date:03/26/2025 08:07:24 PM Interpretation: Performing Lab: Notes/Report: [facility] , Color Urine LT. YELLOW YELLOW Clarity Urine CLEAR CLEAR Specific Denbo Urine <=1.005 1.005-1.025 pH Urine 6.5 5.0-9.0 Protein Urine NEGATIVE NEG/TRACE mg/dL Glucose Urine UA NEGATIVE NEGATIVE mg/dL Bilirubin Urine NEGATIVE NEGATIVE Ketones Urine NEGATIVE NEGATIVE mg/dL Blood Urine TRACE-I NEGATIVE Nitrite Urine NEGATIVE NEGATIVE Urobilinogen Urine 0.2 0.2-1.0 EU/dL Leukocyte Esterase Urine NEGATIVE NEGATIVE Urine Microscopic Indicated YES Performing Lab: see note ML - [facility] LB URINE MICROSCOPIC ONLY Reviewed date:03/26/2025 08:07:24 PM Interpretation: Performing Lab: Notes/Report: [facility] , WBC Urine 0-2 NONE SEEN #/HPF RBC Urine 0-2 0-2 #/HPF Bacteria Urine TRACE NONE SEEN #/HPF Mucus Urine NONE SEEN NONE SEEN Squamous Epithelial Cell Urine RARE NONE/RARE #/LPF Crystals Seen? None Seen None Seen #/HPF Cast Seen? NONE SEEN NONE SEEN #/LPF Urine Culture Indicated NO Performing Lab: see note - [facility] LB Prothrombin Time INR Reviewed date:03/26/2025 08:07:24 PM Interpretation: Performing Lab: Notes/Report: [facility] , Prothrombin Time 11.2 9.0-11.6 sec INR 1.06 2.5-3.5 RECURRENT THROMBOSIS 2.5-3.5 FOR PROSTHETIC HEART VALVE REPLACEMENT DESIRED INR: 2.0-3.0 CONDITIONS NOT LISTED BELOW Performing Lab: see note - [facility] LB Manual Differential Reviewed date:03/26/2025 08:07:24 PM Interpretation: Performing Lab: Notes/Report: [facility] , Segmented Neutrophils % Manual 41.0 43.0-75.0 Band Neutrophils % 6.0 0-5 % Lymphocytes Percent Manual 11.0 20.5-60.0 % Monocytes Percent Manual 40.0 1.7-12.0 % Eosinophils Percent Manual 0.0 0.9-7.0 % Basophils Percent Manual 0.0 0.2-2.0 % Metamyelocytes % 2.0 Segmented Neut Absolute Manual 3.60 1.4-6.5 10 3/uL Band Neutrophils Absolute 0.5 0.0-0.3 10 3/uL Lymphocytes Absolute Manual 0.96 1.20-3.80 10 3/uL Monocytes Absolute Manual 3.52 0.30-0.80 10 3/ uL Eosinophils Absolute Manual 0.00 0.00-0.70 10 3/uL Basophils Abs Manual 0.00 0.00-0.10 10 3/uL Metamyelocytes Absolute Manual 0.17 Performing Lab: see note - [facility] LB Troponin I High Sensitivity Reviewed date:03/26/2025 08:07:24 PM Interpretation: Performing Lab: Notes/Report: [facility] , Troponin I High Sensitivity 8.4 4.0-76.1 pg/m L USED IN ISOLATION BUT SHOULD BE INTERPRETED IN CONJUNCTION DIAGNOSIS. WITH OTHER DIAGNOSTIC AND CLINICAL INFORMATION. HAS BEEN CONFIRMED THE DECISION THRESHOLD FOR RI NOTE: HIGH-SENSITIVITY TROPONIN ASSAY IS NOT INTENDED TO BE REFERENCE LIMIT (URL) OF TROPONIN, DEFINED THE 99TH PERCENTILE OF cTnI DISTRIBUTION IN A REFERENCE POPULATION, UNIVERSAL DEFINITION OF MYOCARDIAL INFARCTION. THE UPPER 99TH PERCENTILE = 76.2 PG/ML CUT-OFF POINTS HAVE BEEN ESTABLISHED BASED ON THE FOURTH Performing Lab: see note ML - [facility] LB ECG 12 lead Reviewed date:03/28/2025 08:24:37 PM Interpretation: Performing Lab: Notes/Report: Source Facility: [place] [address] [place] [address] Electrocardiograph Report Signed Patient: CHIKI JUAREZ MR#: [id number] : 1945 Acct:[id number] Age/Sex: 80 / M ADM Date: 03/26/25 Loc: ER Attending Dr: Ordering Physician: Meredith Sewell Date of Service: 03/26/25 Procedure(s): ECG 12 lead Accession Number(s): [id number] cc: 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 Measurements Intervals [place] Rate: 96 P: 77 ME: 172 QRS: -51 QRSD: 132 T: 56 QT: 370 QTc: 424 Interpretive Statements 1100 Sinus rhythm 1470 with occasional supraventricular premature complexes 1570 with occasional ventricular premature complexes 2450 Right bundle branch block 2630 Left anterior fascicular block 9150 abnormal ECG Compared to ECG 03/03/2025 05:23:35 Ventricular premature complex(es) now present Right bundle-branch block now present Left anterior fascicular block now present Ventricular-paced complex(es) or rhythm no longer present Electronically Signed On 03-28-2025 12:48:41 EDT by DANIELLA TUCKER M.D. Dictated By: DANIELLA TUCKER Signed By: 03/28/25 1249 DD/ 1130 TD/TT: Corporate Legal Secretary: CT abdomen pelvis wo con Reviewed date:03/26/2025 08:07:24 PM Interpretation: Performing Lab: Notes/Report: Source Facility: [place] [address] [address] [place] [id number] Scan Report Signed Patient: CHIKI JUAREZ MR#: [id number] : 1945 Acct:[id number] Age/Sex: 80 / M ADM Date: 03/26/25 Loc: ER Attending Dr: Ordering Physician: Meredith Sewell Date of Service: 03/26/25 Procedure(s): CT abdomen pelvis wo con Accession Number(s): [id number] cc: Natasha Fraga M.D. [place] [id number] Patient Name: CHIKI JUAREZ MRN: [id number] date: 1945 Sex: M Assigned Patient Location: ER Current Patient Location: ER Accession/Order Number: [id number] Exam Date: 03/26/2025 13:13 Report Date: 03/26/2025 13:18 At the request of: MEREDITH SEWELL MD Procedure: CT abdomen pelvis wo con CT ABDOMEN AND PELVIS WITHOUT INTRAVENOUS CONTRAST: CLINICAL HISTORY: left flank pain COMPARISON: CT abdomen and pelvis 04/02/2023 TECHNIQUE: Spiral images were obtained through the abdomen and pelvis without intravenous contrast. This CT exam was performed using one or more following dose reduction techniques: Automated exposure control, adjustment of the mA and/or kV according to patient size, or use of iterative reconstruction technique. FINDINGS: Lung Bases: [Bibasilar scarring.] Organs:Suboptimal evaluation due to lack of IV contrast. Liver and splenic granulomas. Gallbladder pancreas and adrenal glands all appear unremarkable. Cysts right kidney. Left kidney appears unremarkable. No stone or hydronephrosis. Abdominal aorta appears normal in caliber.[ GI: Stomach is grossly unremarkable. Small bowel appears nondilated. No acute colonic abnormality.[ Pelvis:[Urinary bladder and prostate gland appear unremarkable.] Peritoneum/Retroperitoneum:No free air free fluid or lymphadenopathy.[ Abd wall/Bones:No acute findings. Osseous structures demonstrate degenerative changes. Chronic appearing compression deformity L2 vertebral body new since 2022. CT/CT abdomen pelvis wo con IMPRESSION: No acute intra-abdominal process. Obstructive uropathy. Chronic appearing compression deformity L2 vertebral body new since 2022. If acuity needs to be assessed, MRI is suggested. Impression dictated by: Malachi Spence Jr., D.OJeffery 03/26/2025 1:18 PM Dictation Location: RADIO-PC-18 Electronically authenticated by: [id number] Y Date: 03/26/2025 13:18 Dictated By: Malachi Spence M.D. Signed By: 03/26/25 1320 DD/ 1318 TD/TT: Corporate Legal Secretary: XR chest 1V Reviewed date:03/26/2025 08:07:24 PM Interpretation: Performing Lab: Notes/Report: Source Facility: [place] [address] XRay Report Signed Patient: CHIKI JUAREZ MR#: [id number] : 1945 Acct:[id number] Age/Sex: 80 / M ADM Date: 03/26/25 Loc: ER Attending Dr: Ordering Physician: Meredith Sewell Date of Service: 03/26/25 Procedure(s): XR chest 1V Accession Number(s): [id number] cc: Natasha Fraga M.D.; Meredith Sewell [place] [address] Patient Name: CHIKI JUAREZ MRN: [id number] date: 1945 Sex: M Assigned Patient Location: ER Current Patient Location: ER Accession/Order Number: [id number] Exam Date: 03/26/2025 12:17 Report Date: 03/26/2025 12:19 At the request of: MEREDITH SEWELL MD Procedure: XR chest 1V Single view chest: CLINICAL HISTORY: left chest pain COMPARISON: CT chest 03/02/2025 FINDINGS: Pacemaker device in place. Cardiomegaly with vascular congestion and interstitial changes. Stable scarring right upper lobe. No consolidation pneumothorax, large pleural effusion or free air. XR/XR chest 1V IMPRESSION: CHF CHANGES. NO CONSOLIDATION TO SUGGEST PNEUMONIA. Impression dictated by: Malachi Spence Jr., D.O. 03/26/2025 12:19 PM Dictation Location: RADIO-PC-18 Electronically authenticated by: [id number] Y Date: 03/26/2025 12:19 Dictated By: Malachi Spence M.D. Signed By: 03/26/25 1221 DD/ 1219 TD/TT: Corporate Legal Secretary: PROF Tate(COMP METB) Reviewed date:03/26/2025 08:07:24 PM Interpretation: Performing Lab: Notes/Report: [facility] , Sodium 140 136-145 mmol/L Potassium 3.9 3.5-5.1 mmol/L Chloride 104 98-107 mmol/L Carbon Dioxide 26.8 21.0-32.0 mmol/L Anion Gap 13.1 Glucose 112 74-106 mg/dL Blood Urea Nitrogen 25.0 7.0-18.0 mg/dL Creatinine 1.49 0.70-1.30 mg/dL Estimated GFR ( Antonella 55 >=60 mL/min/1.73m 2 Estimated GFR (Non- Fadumo 46 >=60 mL/min/1.73m 2 BUN Creatinine Ratio 16.8 Calcium 8.9 8.5-10.1 mg/dL Bilirubin Total 0.7 0.2-1.0 mg/dL Aspartate Amino Transferase 8 15-37 U/L Alanine Aminotransferase 23 16-63 U/L Alkaline Phosphatase 115 46-116 U/L Total Protein 7.0 6.4-8.2 g/dL Albumin Level 2.8 3.4-5.0 g/dL Globulin 4.2 Albumin Globulin Ratio 0.7 Performing Lab: see note ML - [facility] LB LACTATE or LACTIC ACID Reviewed date:03/26/2025 08:07:24 PM Interpretation: Performing Lab: Notes/Report: [facility] , Lactate/Lactic Acid 1.9 0.4-2.0 mmol/L Performing Lab: see note ML - [facility] LB CBC AUTO DIFF Reviewed date:03/26/2025 08:07:24 PM Interpretation: Performing Lab: Notes/Report: [facility] , White Blood Count 8.8 4.0-11.0 10 3/uL Red Blood Count 3.47 4.70-6.10 10 6/uL Hemoglobin 11.7 14.0-18.0 g/dL Hematocrit 36.5 42.0-54.0 % Mean Corpuscular Volume 105.2 80.0-94.0 fL Mean Corpuscular Hemoglobin 33.7 25.9-34.0 pg Mean Corpuscular HGB Conc 32.1 29.9-35.2 g/dL Red Cell Distribution Width 16.7 11.0-15.0 % Platelet Count 159 150-450 10 3/uL Mean Platelet Volume 10.8 9.5-13.5 fL Performing Lab: see note ML - [facility] Reason For Referral No Information Medications Medication SIG (Take, Route, Frequency, Duration) Notes Start Date End Date Status Azelastine HCl 137 MCG/SPRAY SPRAY 1 SPRAY INTO EACH NOSTRIL TWICE A DAY Nasal; Duration: 50 Days Active Tezspire 210 MG/1.91ML as directed Subcutaneous Active HYDROcodone-Acetaminophen 5-325 MG 1 tablet as needed Orally every 6 hrs; Duration: 7 days As needed M48.56xa 03/28/2025 Active Budesonide 0.5 MG/2ML USE 1 VIAL VIA NEB ULIZER TWICE A DAY Inhalation; Duration: 90 Days Active Serevent Diskus 50 MCG/ACT 1 puff Inhala tion Twice a day Active tiZANidine HCl 4 MG 2 tabs Orally qhs; Duration: 30 days 03/28/2025 Active Aspirin 81 MG 1 tablet Orally Once a day; Duration: 30 day(s) 11/02/2024 Active Spiriva Respimat 2.5 MCG/ACT 2 puffs Inhalation Once a day 11/02/2024 Active Albuterol Sulfate (2.5 MG/3ML) 0.083% INHALE 1 VIAL Inhalation via neb every 4 hours as needed Active Potassium Chloride ER 10 MEQ 1 tablet with food Orally Twice a day ON HOLD Active Levothyroxine Sodium 100 MCG TAKE 1 TABLET BY MOUTH EVERY DAY Oral; Duration: 90 Days Active Azithromycin 250 MG 2 tabs today then 1 tab Orally daily; Duration: 5 days 03/22/2025 Active Montelukast Sodium 10 MG TAKE 1 TABLET B Y MOUTH EVERY DAY Oral; Duration: 90 Days Active Furosemide 20 MG 1 tablet Orally Once a day; Duration: 30 day(s) 11/02/2024 Active HyperSal 3.5 % INHALE 4 ML VIA NEBULIZER TWO TIMES DAILY. Inhalation; Duration: 30 Days Active Calcitonin (Farrar) 200 UNIT/ACT 1 spray in 1 nostril, alternating nostrils daily Nasally Once a day DX M48.56XA; Duration: 90 days 03/14/2025 Active Fluticasone-Salmeterol 500-50 MCG/ACT 1 puff Inhalation Twice a day Active Immunizations Vaccine Route Administration Date Status Comme nts Arexvy Unknown 03/21/2024 Administered Comirnaty Pfizer Syringe Pre -Filled 30 mcg/0.3 mL Unknown 05/12/2024 Administered Flu, Fluad (75226) 65 yrs + High Dose Seasonal (2132-1156) Unknown 05/12/2024 Administered Pneumococcal (Pneumovax 23) Unknown [...] Status Risk Notes Problem Morbid obesity (disorder) (933763195) Morbid (severe) obesity due to excess calories (E66.01) Active confirmed Problem Complete atrioventricular block (06132066) Atrioventricular block, complete (I44.2) Active confirmed Problem Centrilobular emphysema (98718353) Centrilobular emphysema (J43.2) Active confirmed Problem Uncomplicated severe persistent asthma (256483277) Severe persistent asthma, uncomplicated (J45.50) Active confirmed Problem Chronic respiratory failure (90188979) Chronic respiratory failure with hypoxia (J96.11) Active confirmed Problem 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 Problem Long-term current use of inhaled steroid (998852173) alf (current) use of inhaled steroids (Z79.51) Active confirmed Problem Hypothyroidism (88870590) Hypothyroidism (E03.9) Active confirmed Problem Obesity (600037641) Obesity (E66.9) Active conf irmed Problem Non-Hodgkin lymphoma (924836407) Lymphoma (C85.90) Active confirmed Problem Sleep apnea (37675713) Sleep apnea (G47.30) Active confirmed Problem Obstructive sleep apnea syndrome (44304717) JUANA (obstructive sleep apnea) (G47.33) Active confirmed Problem Cardiac pacemaker in situ (274162844) Pacemaker (Z95.0) Active confirmed Problem CVA - Cerebrovascular accident (172828568) CVA (cerebral vascular accident) (I63.9) Active confirmed Problem Thyroid nodule (211009838) Thyroid nodule (E04.1) Active confirmed Problem Pathological fracture of vertebra (285407469) Compression fracture of lumbar spine, non-traumatic (M48.56XA) Active confirmed Problem Thoracic radiculopathy (15658647) Thoracic radiculopathy (M54.14) Active confirmed Problem Ex-tobacco user (finding) (737229153) History of tobacco abuse (Z87.891) Active confirmed Problem 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68527924) 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) Active confirmed Problem Lumbar radiculopathy (379677528) Lumbar radiculopathy, chronic (M54.16) Active confirmed Problem Prolonged QT interval (532493211) Prolonged QT interval (R94.31) Active confirmed Problem Secondary pulmonary hypertension (81171369) Other secondary pulmonary hypertension (I27.29) Active confirmed Problem Pulmonary hypertension (73421607) Pulmonary hypertension (I27.20) Active confirmed Vital Signs Heart Rate 81 /min 02/01/2025 RA Activity/Res ting Temperature 97.0 degrees Fahrenheit 02/01/2025 RA A ctivity/Resting Respiratory Rate 20 /min 02/01/2025 RA Activity /Resting Oximetry 92 % 02/01/2025 RA Activity/Res ting Blood pressure diastolic 62 mm Hg 03/22/2025 Height 63 in 03/22/2025 Blood pressure systolic 112 mm Hg 03/22/2025 Weight 203 lbs 03/22/2025 BMI 35.96 kg/m2 03/22/2025 Encounters Encounter Location Date Provider Diagnosis [address] [place] [address] 10/13/2024 [facility] [address] [place] [address] 03/13/2025 Domenico Fraga Thyroid nodule E04.1 and Lymphoma C85.90 [facility] [address] [place] [address] 03/13/2025 Domenico Fraga [facility] [address] [place] [address] 03/26/2025 Domenico Fraga [facility] [address] [place] [address] 05/03/[address] [place] [address] 02/01/2025 Chester Ferro Severe persistent as thma, uncomplicated J45.50 ; Centrilobular emphysema J43.2 ; Chronic respiratory failure with hypoxia J96.11 ; JUANA (obstructive sleep apnea) G47.33 ; Cystic fibrosis carrier Z14.1 ; Prolonged QT interval R94.31 ; Radiation fibrosis of lung J70.1 ; Other secondary pulmonary hypertension I27.29 ; History of tobacco abuse Z87.891 ; alf (current) use of inhaled steroids Z79.51 and Obesity E66.[address] [place] [address] 11/02/2024 Chester Ferro Severe persistent as thma, uncomplicated J45.50 ; Centrilobular emphysema J43.2 ; Chronic respiratory failure with hypoxia J96.11 ; JUANA (obstructive sleep apnea) G47.33 ; Cystic fibrosis carrier Z14.1 ; Prolonged QT interval R94.31 ; Radiation fibrosis of lung J70.1 ; Other secondary pulmonary hypertension I27.29 ; History of tobacco abuse Z87.891 ; 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 Awyz-xpj-rgbxgpl Nasal Saline may help the stuffy and runny nose. Use Ibuprofen and or Tylenol as needed for fever, chills, body aches or pain. Children 5 years old should not be given wuxr-fom-jdcsjva cough and cold medications such as guaifenesin and dextromethorphan. If you're over age 5, you may try qygb-doa-calznsz cold medications such as guaifenesin and dextromethorphan, [...] respiratory failure with hypoxia (ICD-10 - J96.11) Mwrh-is-cpzq encounter performed with the patient to document [...] JUANA (obstructive sleep apnea) (ICD-10 - G47.33) Hulb-th-djff encounter performed with the patient to document continued need for PAP therapy. -Current DME: [facility] -PS12/14/2018; Initial AHI: 59 (3% criteria), 45 (4% criteria) -Last PAP titration: 12/28/2018 @ [id number] -CPAP set-up: 01/11/2019 -No compliance available -Mask/harness [...] bedtime and with any naps. -Note: This kacp-ln-xbtq visit comes with my authorization that the patient's DME may request to renew, reorder, and/or replace tubing, supplies, mask, and/or PAP device (if applicable). 02/01/2025 Chronic respiratory failure with hypoxia (ICD-10 - J96.11) Umxl-dl-bzyj encounter performed with the patient to document [...] JUANA (obstructive sleep apnea) (ICD-10 - G47.33) Vmjz-sw-omrm encounter performed with the patient to document continued need for PAP therapy. -[place] [facility] [place] Initial AHI: 59 (3% criteria), 45 (4% criteria) -Last PAP titration: 12/28/2018 @ 18zsX2F -Compliance reviewed 01/02/2025 - 01/31/2025 -Overall use: 30/ (100%) days ->4 hour use: 29/ (97%) days -Settings: AirSense 11 AutoSet CPAP [id number] -Residual AHI: 2.3 -Air leak (median): 15.7L/min [...] bedtime and with any naps. -Note: This fvuy-ff-qico visit comes with my authorization that the patient's DME may request to renew, reorder, and/or replace tubing, supplies, mask, and/or PAP device (if applicable). 11/02/2024 Cystic fibrosis carrier (ICD-10 - Z14.1) Evaluted at [facility] under Dr. Mayra Berg. Continue [...] fibrosis carrier (ICD-10 - Z14.1) Evaluted at [facility] under Dr. Mayra Berg. Continue [...] secondary pulmonary hypertension (ICD-10 - I27.29) Reviewed [facility] notes - felt predominantly group [...] secondary pulmonary hypertension (ICD-10 - I27.29) Reviewed [facility] notes - felt predominantly group [...] age, time from cessation, # pack-years). 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 02/01/2025 History of tobacco abuse (ICD-10 - Z87.891) 1ppd x 15 years, quit ~1987 This patient does not meet current LDCT criteria (e.g. age, time from cessation, # pack-years). 03/13/2025 Thoracic radiculopathy (ICD-10 - M54.14) 03/13/2025 Lumbar radiculopathy (ICD9-CM - 724.4) 02/01/2025 alf (current) use of inhaled steroids (ICD-10 - [...] neck 03/13/2025 Next Appt Details Provider Name:Domenico Fraga, 10:00:00 AM, [address] [facility], [place], [address], Insurance Providers Payer Name Payer Address Payer Phone Subscriber Number Group Number Insured Name Patient Relationship to Insured Coverage Start Date Coverage End Date [facility] [employer] [address] [address] [place] [address] [id number] Chiki Juarez Self - patient is the insured [...] resection melanoma excision Hospitalization History Reason Date(Month/Year) Pneumonia 02/2025 COPD Exacerbation-[facility] 10/11/2024
--- OUTSIDE RECORDS SUMMARY | 2025-06-01 13:04 | XMS_ITS | Clinical Summary ---
Author Organization [facility] Address [address] [place] [address] Phone Care Team Providers Care Coil Binder Name Role Phone Unavailable Primary Care Provider [...]
--- OUTSIDE RECORDS SUMMARY | 2025-06-01 13:04 | XMS_ITS | Encounter Summary ---
Author Organization [facility] Address [address] [place] [address] Care Team Providers Care Dumper Bailer Operator Name Role Phone Marshall Briceño MD Primary Care Provider [phone] Source Comments In the event this information is protected by the Federal Confidentiality of Alcohol and Drug AbusePatient Records regulations: The Federal rules restrict any use of the information to criminally investigate or prosecute any alcohol or drug abuse patient.[facility] Encounter Details Date Type Department Care Team (Latest Contact Info) Description 05/25/2025 Travel Social History Tobacco Use Types Packs/Day Years [...] risk 8 06/06/2024 Data from: https://www.neighborhoodatlas.medicine.[facility].edu/. Last address used for calculation [address] [place] [address] [address] 06/06/2024 Sex and Gender Information [...] AM BENNYT Love * Do you have difficulty dressing [...] Description 11/24/2025 1:45 PM EDT Office Visit [facility] [address] [address] RV in 6 months with lab 11/24/2025 2:00 PM EDT Visit (SP) Office Hematology/Oncology [address] [address] Ginger Bean APRN.[employer] [address] [place] [address] RV in 6 months with lab documented as of this encounter Visit Diagnoses Not on filedocumented in this encounter Care Teams Dumper Bailer Operator Relationship Specialty Start Date End Date Marshall Briceño MD [address] [place] [address] PCP - General Family Medicine 07/23/23 documented as of this encounter
--- OUTSIDE RECORDS SUMMARY | 2025-06-01 13:04 | XMS_ITS | Encounter Summary ---
Author Organization [facility] Address [address] [place] [id number] Care Team Providers Care Director Recreation Name Role Phone Marshall Briceño MD Primary Care Provider [phone] Source Comments In the event this information is protected by the Federal Confidentiality of Alcohol and Drug AbusePatient Records regulations: The Federal rules restrict any use of the information to criminally investigate or prosecute any alcohol or drug abuse patient.[facility] Encounter Details Date Type Department Care Team (Latest Contact Info) Description 05/26/2025 Travel Social History Tobacco Use Types Packs/Day [...] is lower risk 8 06/06/2024 Data from: https://www.neighborhoodatlas.medicine.[facility].edu/. Last address used for calculation [address] [place] [address] [address] 06/06/2024 Sex and Gender Information [...] Description 11/24/2025 1:45 PM EDT Office Visit [facility] [address] [address] RV in 6 months with lab 11/24/2025 2:00 PM EDT Visit (SP) Office Hematology/Oncology [address] [place] [address] Ginger Bean APRN.[employer] SET UP OPERATOR [address] [place] [address] RV in 6 months with lab documented as of this encounter Visit Diagnoses Not on filedocumented in this encounter Care Teams Director Recreation Relationship Specialty Start Date End Date Marshall Briceño MD [address] [place] [address] PCP - General Family Medicine 07/23/23 documented as of this encounter
--- OUTSIDE RECORDS SUMMARY | 2025-06-01 13:04 | XMS_ITS ---
Author Organization [facility] Address [address] [place], [place] [id number] Care Team Providers Care Landscape Crew Member Name Role Phone Marshall Briceño MD Primary Care Provider [phone] Active Problems Problem Noted Date Diagnosed Date B12 deficiency 07/13/2017 Diffuse large B cell lymphoma 02/21/2013 Current Treatment and Therapy Plans No current plan information found. Past Treatment and Therapy Plans
--- OUTSIDE RECORDS SUMMARY | 2025-06-01 13:04 | XMS_ITS | Encounter Summary ---
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 Name Role Phone Marshall Briceño MD Primary Care Provider [phone] Elpidio Wing MD Primary Care Provider [phone] Encounter Details Date Type Department Care Team (Late st Contact Info) Description 01/28/2025 Orders Only [facility] [address] [place] [address] Connor Roberts MD [address] [place] [address] Social History Tobacco Use Types [...] Description 06/02/2025 2:45 PM EDT Office Visit [facility] [address] [place] [id number] Rodolfo Easton MD [address] [facility] [address] [facility] [place] [address] documented as of this encounter Procedures Procedure Name Priority Date/Time Associated Diagnosis Comments CARDIAC DEVICE CHECK - REMOTE - PACEMAKER Routine 01/28/2025 12:00 AM EDT documented in this encounter Results * Cardiac device check - Remote pacemaker (01/28/2025 12:00 AM EDT) Anatomical Region Laterality Modality Other 01/28/2025 Connor Roberts MD CV IMPLANTABLE CARDIAC DEVICE CA OCEDURES Final Result documented in this encounter Visit Diagnoses Not on filedocumented in this encounter Care Teams Farmworker Fur Relationship Specialty Start Date End Date Marshall Briceño MD [address] [place] [address] PCP - General Family Medicine 05/21/23 05/30/25 Elpidio Wing MD [address] [place] [address] PCP - General Family Medicine 05/31/25 documented as of this encounter
--- OUTSIDE RECORDS SUMMARY | 2025-06-01 13:06 | XMS_ITS | CCD ---
Author Organization [facility] Care Team Providers Care External Grinder Tender Name Role Phone CRESCENCIO FLETCHER Referring Unavailable WILL SHERWOOD Primary Care Unavailable MYA BHAKTA Attending Unavailable DOMINIC BHAKTAMED Admitting Unavailable IN Procedure Practitioner Unavailab CONNOR Herrera Surgeon Unavailable MYA BHAKTA Surgeon Unavailable IN Procedure Practitioner Unavailab WILL Jackson Primary Care Physician Will Sherwood MD Primary Care Provider [phone] JARETT, DR WILL Del Toro Attending Unavailable [...] Del Toro Primary Care Unavailable SHERWOOD, DR WLIL Del Toro Consulting Unavailable JENI, CRISTÓBAL Admitting [...] ALLAN Consulting Unavailable PITO PATTERSON Consulting Unavailable PIOT PATTERSON Admitting Unavailable PITO PATTERSON Attending Unavailable SHERWOOD, DR WILL Del Toro Primary Care Unavailable Will Sherwood MD Primary Care Provider Pito Patterson. Primary Care Physician Pito Patterson MD Primary Care Provider [phone] Unallocated , Mohit Provider Primary Care Provi preet Crys Liu Unavailable [phone] Connor Crawley DO Unavailable Pito Patterson MD Primary Care Provider DO Connor Crawley Attending Provider [phone] MD Pito Patterson Primary Care Provider Unallocated Mohit VENTURA Provider Primary Care Provi preet Connor Crawley Admitting Unavailable Connor Crawley Attending Unavailable Pito Patterson Primary Care Unavailable CorwinMarlys min Primary Care Physician Corwin, Marlys L Admitting Unavailable Corwin, Marlys L Attending Unavailable CorwinMarlys Admitting Unavailable Elpidio Wing MD Primary Care Provider [phone] Elpdiio Wing Primary Care Physician Pito Patterson Attending Unavailable CorwinMarlys Attending Unavailable Pito Patterson Attending Unavailable Pito Patterson Attending Unavailable Pito Patterson Attending Unavailable Corwin, aMrlys Moses Attending Unavailable Corwin, Marlys Moses Attending Unavailable Pito Patterson Attending Unavailable Oni MCKEON Attending Unavailable Corwin, Marlys Moses Admitting Unavailable Corwin, Marlys Moses Attending Unavailable Corwin, Marlys Moses Admitting Unavailable Corwin, Marlys Moses Attending Unavailable Pito Patterson Admitting Unavailable MARKUS CERNA Attending Unavailable CONNOR CARRERA Referring Unavailable DEBICONNOR Ramirez Referring Unavailable MOUKADANIELLA TALAVERA Attending Unavailable CONNOR CARRERA Referring Unavailable NORTHEIM, CRYS Attending Unavailable GIL ANGULO Attending Unavailable CONNOR CRAWLEY Attending Unavailable SONALI, CRYS Referring Unavailable CONNOR CRAWLEY Attending Unavailable CONNOR CRAWLEY Attending Unavailable GIL ANGULO Attending Unavailable SONALI, CRYS Attending Unavailable TYLER DRAPER Referring Unavailabl e ROSS, PITO E Primary Care Unavailable TYLER DRAPER Attending Unavailabl e TYLER DRAPER Referring Unavailabl e ROSS, PITO E Primary Care Unavailable TYLER DRAPER Referring Unavailabl e ROSS, PITO E Primary Care Unavailable TYLER DRAPER Referring Unavailabl e ROSS, PITO E Primary Care Unavailable ANA M SCHNEIDER Attending Unavailable TYLER DRAPER Referring Unavailabl e ROSS, PITO E Primary Care Unavailable TYLER DRAPER Referring Unavailabl e ROSS, PITO E Primary Care Unavailable TYLER DRAPER Attending Unavailabl e TYLER DRAPER Referring Unavailabl e ROSS, PITO E Primary Care Unavailable Allergies Allergy Classification Reported Allergen(s) Allergy Type Date of Onset Reaction(s) Facility (16 sources) Spironolactone; Translations: [SPIRONOLACTONE ] Drug Allergy 2 Other: See Comments [facility] (7 sources) Latex Propensity to adverse reactions 5 Rash [facility] Medications Current Medications Medication Drug Class(es) Dates Sig (Normalized) Sig (Original) 1.91 ML tezepelumab-ekko 110 MG/ML Auto-Injector [Tezspire] (3 sources) Start: 02-15-2024 Tezspire Pre-filled Pen 210 [...] 1 VIAL VIA NEBULIZER EVERY 4 HOURS, [id number], 168, cm, 08/25/24 11:21:00 EST, Height/Length Dosing, [...] VIA NEBULIZER EVERY 4 HOURS, [id number], 161, cm, 02/15/24 10:32:00 EDT, Height/Length Dosing, 102, kg, 02/15/24 10:32:00 EDT, Weight Dosing Start Date: 02/22/24 Status: Ordered Start: 10-19-2023 take 1 dose by inhal ation every four hours albuterol 0.083% Inh Kasie 3 mL See Instructions, 300 mL, Refill(s) 3, INHALE 1 VIAL VIA NEBULIZER EVERY 4 HOURS, [id number], 168, cm, 10/19/23 8:08:00 EST, Height/Length [...] 1 VIAL VIA NEBULIZER EVERY 6 HOURS, [id number], 162, cm, 10/28/22 15:18:00 EDT, Height/Length Dosing, [...] DAY, # 360 mL, Refills(s) 3, Pharmacy: [facility] [id number], 168, cm, 04/22/24 10:00:00 EDT, Height/Length Dosing, [...] BID, # 120 mL, Refills(s) 11, Pharmacy: [id number], 168, cm, 10/19/23 8:08:00 EST, Height/Length [...] BID, # 120 mL, Refills(s) 11, Pharmacy: [id number], 162, cm, 10/28/22 15:18:00 EDT, Height/Length [...] calcium carbonate 1500 mg or al tablet (20 sources) calcium carbonat e 1500 (600 Ca) MG tablet every 12 (twelve) hours Active Calcium Citrate / Vitamin D (8 sources) Start: 02-24-2019 calcium-vitami n D Start [...] Active cetirizine hydrochloride 10 mg oral tablet (2 sources) Histamine-1 Receptor Antagonist Start: 025 take 1 [...] by mouth. ciclopirox 10 mg/ml medicated shampoo (7 sources) Start: 02-02-2025 Ciclopirox 1 % shampoo [...] mg by mouth once daily. Electric scooter (4 sources) Start: 05-17-2024 Electric scooter Electric scooter, See Instructions, 1 EA, 0, For Debility, Supply Start Date: 05/17/24 Status: Ordered Quantity: 1.0 Unit: EA Repeat number: 1 Indications: Unspecified hearing loss, unspecified ear; Start: 09-03-2023 Electric scoot er Electric scooter, See Instructions, 1 EA, 0, Pt would like an electric scooter, Supply Start Date: 09/03/23 Status: Ordered ensifentrine 1.2 MG/ML Inhalation Suspension [Ohtuvayre] (1 source) Start: 04-24-2025 Ohtuvayre 3 mg / 2.5mL inhalation suspension 3 mg, Refills(s) 0 Start Date: 04/24/25 Status: Ordered Repeat number: 1 ferrous sulfate 325 mg oral tablet (15 sources) Start: 05-16-2021 ferrous sulfat e 325 mg (65 mg iron) tablet 05/16/2021 Active 60 actuat fluticasone propionate 0.5 mg/actuat / salmeterol 0.05 mg/actuat dry powder inhaler (7 sources) Corticosteroid, beta2-Adrenergic Agonist Fluticasone-Salme terol 500-50 MCG/ACT aerosol powder 1 puff every [...] Active Start: 03-09-2023 take 1 capsule by [facility] once daily at bedtime gabapentin 300 mg Cap 300 mg = 1 cap(s), Oral, Once a day (at bedtime), # 30 cap(s), Refills(s) 0, Pharmacy: [facility][id number], 168, cm, 03/09/23 11:04:00 EDT, Height/Length Dosing, 103, kg, 03/09/23 11:04:00 EDT, Weight Dosing Start Date: 03/09/23 Status: Ordered Start: 01-22-2023 take 1 capsule by [facility] once daily at bedtime gabapentin 300 mg Cap 300 mg = 1 cap(s), Oral, Once a day (at bedtime), # 30 cap(s), Refills(s) 0, Pharmacy: [facility][id number], 162, cm, 01/22/23 13:19:00 EDT, Height/Length Dosing, 98.3, kg, 01/22/23 13:19:00 EDT, Weight Dosing Start Date: 01/22/23 Status: Ordered Handicap Placard, 5 years. (4 sources) Start: 10-19-[address], 5 [...] nasal route twice daily ipratropium Nasal 0.06% [place] 2 spray(s), Nasal, BID for 90 day(s), 45 mL, Refill(s) 3, PLACE 2 SPRAYS IN EACH NOSTRIL TWO TIMES DAILY., [facility][id number], 168, cm, 03/09/23 11:04:00 EDT, Height/Length Dosing, 103, kg, 03/09/23 11:04:00 EDT, Weight Dosing Start Date: 03/13/23 Stop Date: 03/07/24 Status: Ordered Start: 02-20-2023 take 1 dose nasal ro kathryn twice daily, then take 2 spray(s) nasal route twice daily ipratropium Nasal 0.06% [place] 2 spray(s), Nasal, BID, 1 EA, Refill(s) 1, PLACE 2 SPRAYS IN EACH NOSTRIL TWO TIMES DAILY., [id number], 162, cm, 01/22/23 13:19:00 EDT, Height/Length Dosing, 98.3, kg, 01/22/23 13:19:00 EDT, Weight Dosing Start Date: 02/20/23 Status: Ordered Start: 01-22-2023 take 1 dose nasal ro kathryn twice daily, then take 2 spray(s) nasal route twice daily ipratropium Nasal 0.06% [place] 2 spray(s), Nasal, BID, 1 EA, Refill(s) 1, PLACE 2 SPRAYS IN EACH NOSTRIL TWO TIMES DAILY., [id number], 162, cm, 01/22/23 13:19:00 EDT, Height/Length Dosing, 98.3, kg, 01/22/23 13:19:00 EDT, Weight Dosing Start Date: 01/22/23 Status: Ordered levothyroxine sodium 0.112 mg oral tablet (20 sources) l-Thyroxine Start: 02-28-2025 take 1 tablet by mouth once daily levothyroxine 112 mcg (0.112 mg) Tab 112 mcg = 1 tab(s), Oral, Daily, # 90 tab(s), Refills(s) 0, [id number], 168, cm, 02/15/25 10:33:00 EDT, Height/Length Dosing, 98.2, kg, 02/15/25 10:33:00 EDT, Weight Dosing Start Date: 02/28/25 Status: Ordered Quantity: 90.0 Unit: tab(s) Repeat number: 1 Start: 01-31-2025 take 1 tablet by noe th once daily levothyroxine 100 mcg (0.1 mg) Tab See Instructions, TAKE 1 TABLET BY MOUTH EVERY DAY, # 90 tab(s), Refills(s) 0, Pharmacy: [id number], 168, cm, 11/24/24 13:08:00 EDT, Height/Length Dosing, 100.3, kg, 11/24/24 13:08:00 EDT, Weight Dosing Start Date: 01/31/25 Status: Ordered Quantity: 90.0 Unit: tab(s) Repeat number: 1 Start: 04-22-2024 take 1 tablet by noe th once daily levothyroxine 100 mcg (0.1 mg) Tab See Instructions, TAKE 1 TABLET BY MOUTH EVERY DAY, # 90 tab(s), Refills(s) 0, Pharmacy: [facility], 161, cm, 02/15/24 10:32:00 EDT, Height/Length Dosing, 102, kg, 02/15/24 10:32:00 EDT, Weight Dosing Start Date: 04/22/24 Status: Ordered Start: 10-19-2023 take 1 tablet by noe th once daily levothyroxine 100 mcg (0.1 mg) Tab 100 mcg = 1 tab(s), Oral, Daily, # 90 tab(s), Refills(s) 0, Pharmacy: [id number], 168, cm, 10/19/23 8:08:00 EST, Height/Length [...] before breakfast. loratadine 10 mg oral tablet (20 sources) take 1 tablet by mouth once [...] Active Start: 10-28-2022 take 1 tablet by noe th once daily metoprolol 25 mg ER Tab 25 mg = 1 tab(s), Oral, Daily, # 30 tab(s), Refills(s) 0 Start Date: 10/28/22 Status: Ordered Quantity: 30.0 Unit: tab(s) Repeat number: 1 Start: 10-28-2022 metoprolol 25 mg ER Tab [...] Ordered Repeat number: 1 Nebulizer accessory set (7 sources) Start: 01-22-2023 Nebulizer accessory set Nebulizer [...] as prescribed for COPD, [facility] ([facility] Supply, 162, cm, 01/22/23 13:19:00 EDT, Height/Length Dosing, 98.3, kg, 01/22/23 13:19:00 EDT, Weight Dosing Start Date: 01/22/23 Status: Ordered Oxygen - for Home (3 sources) Start: 02-15-2024 Oxygen - for H ome 4 L/min, Daily, Refill(s) 0, Oxygen - patient states his infertility nurse just increased this to 4LPM Start Date: 02/15/24 Status: Ordered Repeat number: 1 Start: 02-15-2024 Oxygen - for H ome 4 L/min, Daily, Refill(s) 0, Oxygen - patient states his infertility nurse just increased this to 4LPM Start Date: 02/15/24 Status: Ordered polyethylene glycol 3350 10452 mg powder for oral solution (15 sources) [...] 3 EA, Refill(s) 3, [facility] ([facility]), 168, cm, 03/09/23 11:04:00 EDT, [...] daily. salmon calcitonin 200 unt/actuat nasal spray (20 sources) Calcitonin calcitonin, salmon, (Miacalcin) 200 UNIT/ACT [...] 04/05/2024 Active Tezspire 210 MG/1.91ML solution auto-injector (20 sources) Start: 04-05-2024 Tezspire 210 MG/1.91ML solution auto-injector 04/05/2024 Active tiotropium 0.018 mg inhalation powder (20 sources) Anticholinergic Start: 10-27-2024 tiotropium 18 mcg Inh Cap See Instructions, INHALE 2 INHALATIONS FROM THE CONTENTS OF 1 CAPSULE BY MOUTH VIA INHALATION DEVICE ONCE DAILY, # 90 cap(s), Refills(s) 3, Pharmacy: [facility], 168, cm, 08/25/24 11:21:00 EST, Height/Length Dosing, 101.3, kg, 08/25/24 11:21:00 EST, Weight Dosing Start Date: 10/27/24 Status: Ordered Quantity: 90.0 Unit: cap(s) Repeat number: 1 Start: 06-01-2024 take 1 capsule by in halation once daily Tiotropium Wallace Active 1 CAP INHALATION Daily June 01, [...] procedure, # 2 tab(s), Refills(s) 0, Pharmacy: [facility] #[id number], 168, cm, 03/09/23 11:04:00 EDT, Height/Length [...] provided with radiology test) (1 source) Start: 4 End: iv contrast (will be provided with [...] extended release oral capsule (20 sources) Start: take 1 tablet by mouth once [...] Problem Classification Problem Date Documented Date Episodic/Chronic Cancer of prostate (20 sources) Personal history of malignant neoplasm of prostate; Translations: [History of malignant neoplasm of prostate] Onset: 11-19-2021 Resolved: 05-31-2024 Episodic Chronic kidney disease (20 sources) Chronic kidney disease stage 3A ; [...] page 1, added per outpatient CDI policy. Disorders of lipid metabolism (20 sources) Hyperlipidemia, unspecified; Translations: [Hypertriglyceridemia ] Onset: 02-10-2022 Resolved: 05-31-2024 Chronic Immunity disorders (4 sources) Hypergammaglobulinemi a, unspecified; Translations: [HYPERGAMMAGLOBULINEM IA UNSPECIFIED] Onset: 09-24-2021 Chronic Mycoses (3 sources) Onychomycosis; Translations: [Tinea unguium] 03-15-2025 Episodic [...] subcutaneous tissue] 02-02-2025 Episodic Other circulatory disease (7 sources) History of cerebrovascular disease 10-28-2022 Episodic Other circulatory disease (2 sources) Spider nevus; Translations: [Nevus, non-neoplastic] 08-04-2024 Episodic Other connective tissue disease (3 sources) Pain of toe of left foot; Translations: [Pain in left toe(s)] 03-15-2025 Episodic Other connective tissue disease (3 sources) Pain of toe of right foot; Translations: [Pain in right toe(s)] 03-15-2025 Episodic Other diseases of veins and lymphatics (2 sources) Peripheral venous insufficiency; Translations: [Venous insufficiency (chronic) (peripheral)] 03-15-2025 Episodic Other eye disorders (5 sources) Anisocoria; Translations: [ANISOCORIA] Onset: 05-16-2021 Chronic Other fractures (1 source) Compression fracture of vertebral column 02-24-2019 Episodic Other fractures (7 sources) Wedge fracture of thoracic vertebra 10-28-2022 Episodic Other inflammatory condition of skin (2 sources) Seborrheic dermatitis; Translations: [Other seborrheic dermatitis] 02-02-2025 Episodic Other injuries and conditions due to external causes (4 sources) Local infection of wound; Translations: [Other injury of unspecified body region, initial encounter] 06-09-2024 Episodic Other nervous system disorders (4 sources) Walking disability 08-24-2023 Chronic Other nervous system disorders (18 sources) Chronic pain; Translations: [Other chronic pain] [...] Chronic Other nutritional; endocrine; and metabolic disorders (2 sources) Body mass index 30+ - obesity 02-15-2025 [...] hyperpigmentation] 08-04-2024 Episodic Other upper respiratory infections (18 sources) Chronic sinusitis; Translations: [Chronic sinusitis, unspecified] Onset: 07-02-2023 Resolved: 05-31-2024 05-31-2024 Chronic Residual codes; unclassified (5 sources) Localized edema; Translations: [LOCALIZED EDEMA] Onset: 02-07-2022 Episodic Respiratory failure; insufficiency; arrest (adult) (20 sources) Chronic hypoxemic respiratory failure; Translations: [Chronic respiratory failure with hypoxia] Onset: 04-15-2024 Resolved: 05-31-2024 10-19-2023 Chronic Spondylosis; intervertebral disc disorders; other back problems (2 sources) Backache 02-15-2025 Episodic Thyroid disorders (20 sources) Hypothyroidism; Translations: [Hypothyroidism, unspecified] Onset: 11-23-2018 Resolved: 05-31-2024 02-24-2019 Chronic Unclassified (1 source) CONTACT W/AND (SUSP) EXPOS COVID-19; Translations: [CONTACT W/AND (SUSP) EXPOS COVID-19] Onset: 05-28-2021 Unclassified (3 sources) Asymptomatic microscopic hematuria 04-22-2024 Past or Other Problems Problem Classification Problem Date Documented Date Episodic/Chronic Abdominal hernia (20 sources) Hernia of anterior abdominal wall; Translations: [Ventral hernia without obstruction or gangrene] Onset: 05-21-2023 Resolved: 05-31-2024 10-28-2022 Episodic Acute cerebrovascular disease (20 sources) Cerebrovascular accident; Translations: [Cerebral infarction, unspecified] Onset: 08-03-2020 Resolved: 05-31-2024 05-31-2024 Chronic Administrative/social admission (18 sources) Walking disability; Translations: [Other reduced mobility] Onset: 09-09-2023 Resolved: 05-31-2024 05-31-2024 Episodic Aspiration pneumonitis; food/vomitus (1 source) Pneumonitis due to inhalation of food and vomit; Translations: [PNEUMONITIS D/T INHAL FOOD AND VOMIT] Onset: 09-11-2021 Episodic Asthma (18 sources) Uncomplicated moderate persistent asthma; Translations: [Moderate persistent asthma, uncomplicated] Onset: 05-31-2024 Resolved: 05-31-2024 05-31-2024 Chronic Calculus of urinary tract (20 sources) Kidney stone; Translations: [Calculus of kidney] Onset: 05-21-2023 Resolved: 05-31-2024 06-07-2019 Episodic Cancer of prostate (20 sources) Malignant tumor of prostate; Translations: [Malignant neoplasm of prostate] Onset: 01-07-2022 Resolved: 05-31-2024 01-05-2020 Chronic Deficiency and other anemia (20 sources) Macrocytic [...] Onset: 05-28-2021 Episodic Diabetes mellitus without complication (20 sources) Hyperglycemia; Translations: [Hyperglycemia, unspecified] Onset: 05-31-2024 Resolved: 05-31-2024 05-31-2024 Episodic Fluid and electrolyte disorders (4 sources) [...] Episodic Lung disease due to external agents (18 sources) 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; Translations: [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] Onset: 07-02-2023 Resolved: 05-31-2024 05-31-2024 Chronic Lymphadenitis (6 sources) Lymphadenopathy; Translations: [Enlarged lymph nodes, unspecified] Onset: 11-15-2024 04-19-2024 Episodic Malaise and fatigue (1 source) Other [...] 05-31-2024 07-13-2017 Episodic Other aftercare (1 source) 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; Translations: [GAS APPLIANCE SERVICER HELPER CURRENT USE OF ASPIRIN] Onset: 05-28-2021 Episodic Other aftercare (1 source) Other terminal block assembler (current) drug therapy; Translations: [OTH LONGTERM CURRENT DRUG THERAPY] Onset: 05-28-2021 Episodic Other bone disease and musculoskeletal deformities (4 sources) Osteolysis, unspecified site; Translations: [OSTEOLYSIS UNSPECIFIED SITE] Onset: 09-10-2021 Episodic Other circulatory disease (7 sources) Personal history of transient ischemic attack (TIA), and cerebral infarction without residual deficits; Translations: [PERS HX TIA AND CI NO RESID DEFICIT] Onset: 09-06-2021 Episodic Other circulatory disease (18 sources) History of cerebrovascular accident; Translations: [Personal history of transient ischemic attack (TIA), and cerebral infarction without residual deficits] Onset: 05-23-2022 Resolved: 05-31-2024 05-31-2024 Episodic Other connective tissue disease (1 source) Muscle weakness (generalized); Translations: [MUSCLE WEAKNESS GENERALIZED] Onset: 05-28-2021 Episodic Other ear and sense organ disorders (20 sources) Hearing loss; Translations: [Unspecified hearing loss, unspecified ear] Onset: 05-21-2023 Resolved: 05-31-2024 04-07-2023 Chronic Other fractures (18 sources) Compression fracture of thoracic spine; Translations: [...] Onset: 05-28-2021 Episodic Other lower respiratory disease (18 sources) Cough; Translations: [Cough] Onset: 07-17-2021 Resolved: 05-31-2024 05-31-2024 Episodic Other lower respiratory disease (18 sources) Dyspnea; Translations: [Dyspnea, unspecified] Onset: 07-17-2021 Resolved: 05-31-2024 05-31-2024 Episodic Other lower respiratory disease (18 sources) Hypoxia; Translations: [Hypoxemia] Onset: 11-23-2018 Resolved: 05-31-2024 05-31-2024 Episodic Other lower respiratory disease (18 sources) Wheezing; Translations: [Wheezing] Onset: 07-02-2023 Resolved: 05-31-2024 05-31-2024 Episodic Other nervous system disorders (20 sources) Neuropathy of upper limb; Translations: [Unspecified mononeuropathy of unspecified upper limb] Onset: 05-21-2023 Resolved: 05-31-2024 01-22-2023 Chronic Other nutritional; endocrine; and metabolic disorders (20 sources) Obesity caused by energy imbalance; Translations: [Other obesity due to excess calories] Onset: 05-31-2024 Resolved: 05-31-2024 10-16-2023 Chronic Other nutritional; endocrine; and metabolic disorders (20 sources) Severe obesity; Translations: [Morbid (severe) obesity due to excess calories] Onset: 08-03-2020 Resolved: 05-31-2024 05-27-2023 Chronic Comment on above: Noted in 05/21/2023 U T page 1 note, added per outpatient CDI policy. Other screening for suspected conditions (not mental disorders or infectious disease) (18 sources) Computed tomography result abnormal; Translations: [Abnormal findings on diagnostic imaging of other specified body structures] Onset: 07-02-2023 Resolved: 05-31-2024 05-31-2024 Chronic Other screening for suspected conditions (not mental disorders or infectious disease) (20 sources) Raised prostate specific antigen; Translations: [Abnormal findings on diagnostic imaging of heart and coronary circulation] Onset: 05-28-2021 Resolved: 05-31-2024 05-23-2019 Episodic Other skin disorders (20 sources) Mass of lower limb; Translations: [Localized swelling, mass and lump, unspecified lower limb] Onset: 04-15-2024 Resolved: 05-31-2024 02-15-2024 Episodic Other upper respiratory disease (20 sources) Nasal congestion; Translations: [Nasal congestion] Onset: 05-21-2023 Resolved: 05-31-2024 01-22-2023 Episodic Pneumonia (except that caused by tuberculosis or sexually transmitted disease) (20 sources) Pneumonia, unspecified organism; Translations: [Recurrent pneumonia] Onset: 07-17-2021 Resolved: 05-31-2024 Episodic Pulmonary heart disease (20 sources) Pulmonary hypertension; Translations: [Pulmonary hypertension, unspecified] Onset: 07-02-2023 Resolved: 05-31-2024 05-27-2023 Chronic Comment on above: Noted in 05/21/2023 U T page 1, added per outpatient CDI policy. Residual codes; unclassified (20 sources) Obstructive sleep apnea syndrome; Translations: [Obstructive sleep apnea (adult) (pediatric)] Onset: 04-15-2024 Resolved: 05-31-2024 10-16-2023 Chronic Residual codes; unclassified (18 sources) Bilateral lower limb edema; Translations: [Localized edema] Onset: 08-06-2022 Resolved: 05-31-2024 05-31-2024 Episodic Residual codes; unclassified (18 sources) Bilateral upper arm edema; Translations: [Localized edema] Onset: 07-02-2023 Resolved: 05-31-2024 05-31-2024 Episodic Screening and history of mental health and substance abuse codes (20 sources) Ex-smoker; Translations: [Personal history of nicotine dependence] Onset: 05-28-2021 Resolved: 05-31-2024 05-23-2019 Episodic Results Test Name Value Interpretation Reference Range Facility CBC W Auto Differential pane l (Bld)on 05-26-2025 Basophils (Bld) [#/Vol] 10*3/uL Normal <0.11 [facility] Comment on above: Order Comment: Speci men Type: BLOOD SPECIMENOrdering Facility: [facility] Address: [address] [place] [address] Performed By: #### 5 7021-8 ####[facility] [id number] [place] [address] Basophils/100 WBC (Bld) 0.5 % Normal [facility] Comment on above: Order Comment: Speci men Type: BLOOD SPECIMENOrdering Facility: [facility] Address: [address] [place] [address] Performed By: #### 5 7021-8 ####[facility] [id number] [place] [address] Differential cell count method Nom (Bld) Auto Normal [facility] Comment on above: Order Comment: Speci men Type: BLOOD SPECIMENOrdering Facility: [facility] Address: [address] [place] [address] Performed By: #### 5 7021-8 ####[facility] [id number] [place] [address] Eosinophils (Bld) [#/Vol] 0.04 10*3/uL Normal <0.46 [facility] Comment on above: Order Comment: Speci men Type: BLOOD SPECIMENOrdering Facility: [facility] Address: [address] [place] [address] Performed By: #### 5 7021-8 ####[facility] LABCLIA [id number] [place] [address] Eosinophils/100 WBC (Bld) 1.0 % Normal [facility] Comment on above: Order Comment: Speci men Type: BLOOD SPECIMENOrdering Facility: [facility] Address: [address] [place] [address] Performed By: #### 5 7021-8 ####[facility] LABCLIA [id number] [place] [address] Erythrocyte distribution width (RBC) [Ratio] 16.3 % High 11.5-15.0 [facility] Comment on above: Order Comment: Speci men Type: BLOOD SPECIMENOrdering Facility: [facility] Address: [address] [place] [address] Performed By: #### 5 7021-8 ####[facility] LABCLIA [id number] [place] [address] Hematocrit (Bld) [Volume fraction] 35.3 % Low 39.0-51.0 [facility] Comment on above: Order Comment: Speci men Type: BLOOD SPECIMENOrdering Facility: [facility] Address: [address] [place] [address] Performed By: #### 5 7021-8 ####[facility] LABCLIA [id number] [place] [address] Hemoglobin (Bld) [Mass/Vol] 11.0 g/dL Low 13.0-17.0 [facility] Comment on above: Order Comment: Speci men Type: BLOOD SPECIMENOrdering Facility: [facility] Address: [address] [place] [address] Performed By: #### 5 7021-8 ####[facility] LABCLIA [id number] [place] [address] Immature granulocytes (Bld) [#/Vol] 0.08 10*3/uL Normal <0.10 [facility] Comment on above: Order Comment: Speci men Type: BLOOD SPECIMENOrdering Facility: [facility] Address: [address] [place] [address] Performed By: #### 5 7021-8 ####[facility] LABCLIA [id number] [place] [address] Immature granulocytes/100 WBC (Bld) 2.0 % Normal [facility] Comment on above: Order Comment: Speci men Type: BLOOD SPECIMENOrdering Facility: [facility] Address: [address] [place] [address] Performed By: #### 5 7021-8 ####[facility] LABCLIA [id number] [place] [address] Lymphocytes (Bld) [#/Vol] 0.89 10*3/uL Low 1.00-4.00 [facility] Comment on above: Order Comment: Speci men Type: BLOOD SPECIMENOrdering Facility: [facility] Address: [address] [place] [address] Performed By: #### 5 7021-8 ####[facility] LABCLIA [id number] [place] [address] Lymphocytes/100 WBC (Bld) 22.0 % Normal [facility] Comment on above: Order Comment: Speci men Type: BLOOD SPECIMENOrdering Facility: [facility] Address: [address] [place] [address] Performed By: #### 5 7021-8 ####[facility] LABCLIA [id number] [place] [address] MCH (RBC) [Entitic mass] 34.1 pg High 26.0-34.0 [facility] Comment on above: Order Comment: Speci men Type: BLOOD SPECIMENOrdering Facility: [facility] Address: [address] [place] [address] Performed By: #### 5 7021-8 ####[facility] LABCLIA [id number] [place] [address] MCHC (RBC) [Mass/Vol] 31.2 g/dL Normal 30.5-36.0 [facility] Comment on above: Order Comment: Speci men Type: BLOOD SPECIMENOrdering Facility: [facility] Address: [address] [place] [address] Performed By: #### 5 7021-8 ####[facility] LABCLIA [id number] [place] [address] MCV (RBC) [Entitic vol] 109.3 fL High 80.0-100.0 [facility] Comment on above: Order Comment: Speci men Type: BLOOD SPECIMENOrdering Facility: [facility] Address: [address] [place] [address] Performed By: #### 5 7021-8 ####[facility] LABCLIA [id number] [place] [address] Monocytes (Bld) [#/Vol] 1.58 10*3/uL High <0.87 [facility] Comment on above: Order Comment: Speci men Type: BLOOD SPECIMENOrdering Facility: [facility] Address: [address] [place] [address] Performed By: #### 5 7021-8 ####[facility] LABCLIA [id number] [place] [address] Monocytes/100 WBC (Bld) 39.0 % Normal [facility] Comment on above: Order Comment: Speci men Type: BLOOD SPECIMENOrdering Facility: [facility] Address: [address] [place] [address] Performed By: #### 5 7021-8 ####[facility] LABCLIA [id number] [place] [address] Neutrophils (Bld) [#/Vol] 1.44 10*3/uL Low 1.45-7.50 [facility] Comment on above: Order Comment: Speci men Type: BLOOD SPECIMENOrdering Facility: [facility] Address: [address] [place] [address] Performed By: #### 5 7021-8 ####[facility] LABCLIA [id number] [place] [address] Neutrophils/100 WBC (Bld) 35.5 % Normal [facility] Comment on above: Order Comment: Speci men Type: BLOOD SPECIMENOrdering Facility: [facility] Address: [address] [place] [address] Performed By: #### 5 7021-8 ####[facility] LABCLIA [id number] [place] [address] Nucleated RBC (Bld) [#/Vol] 10*3/uL Normal <0.01 [facility] Comment on above: Order Comment: Speci men Type: BLOOD SPECIMENOrdering Facility: [facility] Address: [address] [place] [address] Performed By: #### 5 7021-8 ####[facility] LABCLIA [id number] [place] [address] Nucleated RBC/100 WBC (Bld) [Ratio] 0.0 /100 WBC Normal [facility] Comment on above: Order Comment: Speci men Type: BLOOD SPECIMENOrdering Facility: [facility] Address: [address] [place] [address] Performed By: #### 5 7021-8 ####[facility] LABIA [id number] [place] [address] Platelet mean volume (Bld) [Entitic vol] 11.1 fL Normal 9.0-12.7 [facility] Comment on above: Order Comment: Speci men Type: BLOOD SPECIMENOrdering Facility: [facility] Address: [address] [place] [address] Performed By: #### 5 7021-8 ####[facility] LABIA [id number] [place] [address] Platelets (Bld) [#/Vol] 168 10*3/uL Normal 150-400 [facility] Comment on above: Order Comment: Speci men Type: BLOOD SPECIMENOrdering Facility: [facility] Address: [address] [place] [address] Performed By: #### 5 7021-8 ####[facility] LABIA [id number] [place] [address] RBC (Bld) [#/Vol] 3.23 10*6/uL Low 4.20-6.00 [facility] Comment on above: Order Comment: Speci men Type: BLOOD SPECIMENOrdering Facility: [facility] Address: [address] [place] [address] Performed By: #### 5 7021-8 ####[facility] LABCLIA [id number] [place] [address] WBC (Bld) [#/Vol] 4.05 10*3/uL Normal 3.70-11.00 [facility] Comment on above: Order Comment: Speci men Type: BLOOD SPECIMENOrdering Facility: [facility] Address: [facility] [place] [address] Performed By: #### 5 7021-8 ####[facility] LABCLIA [id number] [place] [address] CNOVSPon 05-26-2025 CNOVSP Visit (SP) Office ( [facility]) -- CHIKI JUAREZ ([id number]) 1945 M Date Time Provider Department 05/26/25 3:00 PM ANA M SCHNEIDER During your visit today, we recorded the following information about you: Temperature Pulse Respiration Blood pressure 97.4 degrees 80/minute 18/minute 110/61 Weight 88.1 kg Ana M Schneider APRN.MATERIAL CONTROL ANALYST 05/27/2025 9:32 AM Signed PATIENT NAME: Chiki Juarez DATE: 05/26/2025 PRIMARY CARE PHYSICIAN: Dr. Pito Patterson OTHER [...] abnormal blood work was identified by his infertility nurse, Dr. Berg, during evaluation for back issues. He has been monitored with labs every 6 months, with minimal [...] discontinuing the medication without improvement, he was hospitalized for pneumonia, during which a CT scan revealed compression fractures at L1 and L3. He subsequently resumed the medication. 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 The pacemaker was checked earlier this week [...] to previous radiation therapy-lymphoma Transient ischemic attack (T (more content not included)... Normal [facility] Comprehensive metabolic 2000 panelon 05-26-2025 Albumin [Mass/Vol] 4.2 g/dL Normal 3.9-4.9 [facility] Comment on above: Order Comment: Speci men Type: BLOOD SPECIMENOrdering Facility: [facility] Address: [address] [place], [place] [address] [address] Performed By: #### 2 4983-8 ####[facility] LABCLIA [id number] [facility] [address] [address] [place] ALP [Catalytic activity/Vol] 108 U/L Normal 38-113 [facility] Comment on above: Order Comment: Speci men Type: BLOOD SPECIMENOrdering Facility: [facility] Address: [address] [place] [address] Performed By: #### 2 4323-8 ####[facility] LABCLIA [id number] [facility] [place] [id number] [place] ALT [Catalytic activity/Vol] 11 U/L Normal 10-54 [facility] Comment on above: Order Comment: Speci men Type: BLOOD SPECIMENOrdering Facility: [facility] Address: [address] [place] [address] Performed By: #### 2 4323-8 ####[facility] LABCLIA [id number] [place] [address] [place] Anion gap [Moles/Vol] 14 mmol/L Normal 8-15 [facility] Comment on above: Order Comment: Speci men Type: BLOOD SPECIMENOrdering Facility: [facility] Address: [address] [place] [address] Performed By: #### 2 4323-8 ####[facility] LABCLIA [id number] [place] [address] [place] AST [Catalytic activity/Vol] 13 U/L Low 14-40 [facility] Comment on above: Order Comment: Speci men Type: BLOOD SPECIMENOrdering Facility: [facility] Address: [address] [place] [address] Performed By: #### 2 4323-8 ####[facility] LABCLIA [id number] [place] [id number] [place] Bilirubin [Mass/Vol] 0.6 mg/dL Normal 0.2-1.3 [facility] Comment on above: Order Comment: Speci men Type: BLOOD SPECIMENOrdering Facility: [facility] Address: [address] [place] [address] Performed By: #### 2 4323-8 ####[facility] LABCLIA [id number] [address] [place] [address] [place] Calcium [Mass/Vol] 9.2 mg/dL Normal 8.5-10.2 [facility] Comment on above: Order Comment: Speci men Type: BLOOD SPECIMENOrdering Facility: [facility] Address: [address] [place] [address] Performed By: #### 2 4323-8 ####[facility] LABCLIA [id number] [address] [place] [address] [place] Chloride [Moles/Vol] 106 mmol/L Normal 98-107 [facility] Comment on above: Order Comment: Speci men Type: BLOOD SPECIMENOrdering Facility: [facility] Address: [address] [place] [address] Performed By: #### 2 4323-8 ####[facility] LABCLIA [id number] [address] [place] [address] [place] CO2 [Moles/Vol] 22 mmol/L Normal 22-30 [facility] Comment on above: Order Comment: Speci men Type: BLOOD SPECIMENOrdering Facility: [facility] Address: [address] [place] [address] Performed By: #### 2 4323-8 ####[facility] LABCLIA [id number] [facility] [address] [place] [address] [place] Creatinine [Mass/Vol] 1.03 mg/dL Normal 0.73-1.22 [facility] Comment on above: Order Comment: Speci men Type: BLOOD SPECIMENOrdering Facility: [facility] Address: [address] [place] [address] Performed By: #### 2 4323-8 ####[facility] LABCLIA [id number] [place] [address] [place] eGFRcr SerPlBld CKD-EPI 2020 74 mL/min/1.73m??? Normal >=60 [facility] Comment on above: Order Comment: Liliya hadley Type: BLOOD SPECIMENOrdering Facility: [facility] Address: [address] [place] [address] Result Comment: Ary mated Glomerular Filtration Rate [...] reflect actual GFR. Performed By: #### 2 4323-8 ####[facility] LABIA [id number] [place] [address] [place] Glucose [Mass/Vol] 95 mg/dL Normal 74-99 [facility] Comment on above: Order Comment: Liliya hadley Type: BLOOD SPECIMENOrdering Facility: [facility] Address: [address] [place] [address] Result Comment: The [place] [employer] (ADA) provides guidance for cutoff [...] Standards of Medical Care in Diabetes 2016, [place] [employer]. Diabetes Care. 2016.39(Suppl 1). Performed By: #### 2 4323-8 ####[facility] LABIA [id number] [place] [id number] [place] Potassium [Moles/Vol] 4.8 mmol/L Normal 3.7-5.1 [facility] Comment on above: Order Comment: Speci men Type: BLOOD SPECIMENOrdering Facility: [facility] Address: [address] [place] [address] Performed By: #### 2 4323-8 ####[facility] LABCLIA [id number] [facility] [id number] [address] [place] Protein [Mass/Vol] 7.0 g/dL Normal 6.3-8.0 [facility] Comment on above: Order Comment: Speci men Type: BLOOD SPECIMENOrdering Facility: [facility] Address: [address] [place] [address] Performed By: #### 2 4323-8 ####[facility] LABCLIA [id number] [address] [place] [address] [place] Sodium [Moles/Vol] 142 mmol/L Normal 136-144 [facility] Comment on above: Order Comment: Speci men Type: BLOOD SPECIMENOrdering Facility: [facility] Address: [address] [place], [place] [address] Performed By: #### 2 4323-8 ####[facility] LABCLIA [id number] [address] [place] [address] [place] Urea nitrogen [Mass/Vol] 15 mg/dL Normal 9-24 [facility] Comment on above: Order Comment: Speci men Type: BLOOD SPECIMENOrdering Facility: [facility] Address: [address] [place] [address] Performed By: #### 2 4323-8 ####[facility] LABCLIA [id number] [address] [place] [address] [place] IMMUNOFIXATION SCREEN, SERUM on 05-26-2025 MPA RESULT No M protein is identified. Normal No M protein is identified. [facility] Comment on above: Order Comment: Speci men Type: BLOOD SPECIMENOrdering Facility: [facility] Address: [address] [place] [address] Performed By: #### I FES ####[facility] LABCLIA [id number] [address] [place] STAFF REVIEW (MPA) Reviewed by Dr. Rowan Ibarra MD [facility] Comment on above: Order Comment: Speci men Type: BLOOD SPECIMENOrdering Facility: [facility] Address: [address] [place] [address] Performed By: #### I [facility] ####[facility] LABCLIA [id number] [place] [address] [place] IMMUNOGLOBULINS,IGG,IGA,IGMo n 05-26-2025 IgA [Mass/Vol] 111 mg/dL Normal 70-400 [facility] Comment on above: Order Comment: Speci men Type: BLOOD SPECIMENOrdering Facility: [facility] Address: [address] [place] [address] Performed By: #### S ERIMM ####[facility] LABCLIA [id number] [place] [address] [place] IgG [Mass/Vol] 894 mg/dL Normal 700-1600 [facility] Comment on above: Order Comment: Speci men Type: BLOOD SPECIMENOrdering Facility: [facility] Address: [address] [place] [address] Performed By: #### S ERIMM ####[facility] LABIA [id number] [place] [address] [place] IgM [Mass/Vol] 75 mg/dL Normal 40-230 [facility] Comment on above: Order Comment: Speci men Type: BLOOD SPECIMENOrdering Facility: [facility] Address: [address] [place] [address] Performed By: #### S ERIMM ####[facility] LABCLIA [id number] [place] [address] [place] KAPPA/ARDON,FREE,SERon 2024 Immunoglobulin light chains.kappa.free (S) [Mass/Vol] 25.9 mg/L High 3.3-19.4 [facility] Comment on above: Order Comment: Speci men Type: BLOOD SPECIMENOrdering Facility: [facility] Address: [address] [place] [address] Result Comment: Rare ly, increased serum free light chains levels may not be detected or accurately quantified due to prozone phenomenon or in high viscosity samples using this immunoturbidimetric assay. Correlation with other laboratory results and clinical findings is recommended. The [place] Free Light Chain was performed using the Binding Site Optilite immunoturbidimetric method. Result obtained with different assay methods or kits cannot be used interchangeably. Performed By: #### K LFRS ####[facility] LABCLIA [id number] [place] [address] [place] Immunoglobulin light chains.kappa/Immunog lobulin light chains.lambda (S) [Mass ratio] 1.61 Normal 0.26-1.65 [facility] Comment on above: Order Comment: Speci [facility] Type: BLOOD SPECIMENOrdering Facility: [facility] Address: [address] [place] [address] Performed By: #### K LFRS ####[facility] LABCLIA [id number] [place] [address] [place] Immunoglobulin light chains.lambda.free [Mass/Vol] 16.1 mg/L Normal 5.7-26.3 [facility] Comment on above: Order Comment: Speci [facility] Type: BLOOD SPECIMENOrdering Facility: [facility] Address: [address] [place] [address] Result Comment: Rare ly, increased serum free [...] used interchangeably. Performed By: #### K LFRS ####[facility] LABCLIA [id number] [place] [address] [place] PROTEIN ELECTROPHORESIS SERU M (P)on 05-26-2025 Albumin [Mass/Vol] 3.81 g/dL Normal 3.43-5.41 [facility] Comment on above: Order Comment: Speci men Type: BLOOD SPECIMENOrdering Facility: [facility] Address: [address] [place] [address] Performed By: #### L [id number] ####[facility] LABCLIA [id number] [place] [address] [place] Alpha 1 globulin Elph [Mass/Vol] 0.39 g/dL Normal 0.18-0.43 [facility] Comment on above: Order Comment: Speci men Type: BLOOD SPECIMENOrdering Facility: [facility] Address: [address] [place] [address] Performed By: #### L [id number] ####[facility] LABCLIA [id number] [place] [address] [place] Alpha 2 globulin Elph [Mass/Vol] 0.82 g/dL Normal 0.42-0.98 [facility] Comment on above: Order Comment: Speci men Type: BLOOD SPECIMENOrdering Facility: [facility] Address: [address] [place] [address] Performed By: #### L [id number] ####[facility] LABCLIA [id number] [place] [address] [place] Beta globulin Elph [Mass/Vol] 0.72 g/dL Normal 0.61-1.17 [facility] Comment on above: Order Comment: Speci men Type: BLOOD SPECIMENOrdering Facility: [facility] Address: [address] [place] [address] Performed By: #### L [id number] ####[facility] LABCLIA [id number] [place] [address] [place] Gamma globulin Elph [Mass/Vol] 0.77 g/dL Normal 0.53-1.51 [facility] Comment on above: Order Comment: Speci men Type: BLOOD SPECIMENOrdering Facility: [facility] Address: [address] [place] [address] Performed By: #### L [id number] ####[facility] LABCLIA [id number] [place] [address] [place] M-PROTEIN LOCATION Normal [facility] Comment on above: Order Comment: Speci men Type: BLOOD SPECIMENOrdering Facility: [facility] Address: [address] [place] [address] Result Comment: Not Applicable. Performed By: #### L [id number] ####[facility] LABCLIA [id number] [place] [address] [place] Protein Fractions [Interp] No definitive M protein is identified on protein electrophoresis. Normal No definitive M protein is identified on protein electrophore sis. [facility] Comment on above: Order Comment: Speci men Type: BLOOD SPECIMENOrdering Facility: [facility] Address: [address] [place] [address] Performed By: #### L [id number] ####[facility] LABCLIA [id number] [address] [place] Protein.monoclonal Elph [Mass/Vol] 0.00 g/dL Normal <=0.00 [facility] Comment on above: Order Comment: Speci men Type: BLOOD SPECIMENOrdering Facility: [facility] Address: [address] [place] [address] Performed By: #### L [id number] ####[facility] LABCLIA [id number] [place] [id number] [place] SPE STAFF REVIEW Reviewed by Dr. Rowan Ibarra MD Normal [facility] Comment on above: Order Comment: Speci men Type: BLOOD SPECIMENOrdering Facility: [facility] Address: [address] [place] [address] Performed By: #### L [id number] ####[facility] LABIA [id number] [place] [id number] [place] PSA SerPl-mCncon 05-26-2025 Prostate specific Ag [Mass/Vol] 0.24 ng/mL Normal <2.60 [facility] Comment on above: Order Comment: Speci men Type: BLOOD SPECIMENOrdering Facility: [facility] Address: [address] [place] [address] Result Comment: Tota l PSA test methodology used is the Electrochemiluminescence Immunoassay by Doreen Partschannel. Total PSA values by differing methodologies cannot be interchanged. Performed By: #### 2 857-1 ####[facility] [id number] [place] [address] [place] Prot SerPl-mCncon 05-26-2025 Protein [Mass/Vol] 6.5 g/dL Normal 6.3-8.0 [facility] Comment on above: Order Comment: Speci men Type: BLOOD SPECIMENOrdering Facility: [facility] Address: [address] [place] [address] Performed By: #### 2 885-2 ####[facility] [id number] [place] [id number] [facility] [place] CNPShantel 05-15-2025 LIDAN Telephone (DONITA) -- CHIKI JUAREZ ([id number]) 1945 M Date Time Provider Department 05/15/25 VALERIE MAYES During your visit today, we recorded the following information about you: Valerie Mayes RN 05/15/2025 9:35 AM Signed Labs pended for RTC 05/26/25 Valerie Mayes RN Allergies As of Date: 05/15/2025 Noted Allergy Reaction SPIRONOLACTONE 09/18/2021 14 - Other: See Comments Comments: Leg cramps, Hyperkalemia Date Reviewed: 11/21/2024 Reviewed by: Yolanda Montague MA - Fully Assessed Reason for Visit: Lab Orders [1688] Primary Visit Diagnosis: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 Problem List As Of Date 05/15/2025 Noted Resolved Diffuse large B cell lymphoma [C83.30] 02/21/2013 B12 deficiency [E53.8] 07/13/2017 Encounter Status:Closed by ARABELLA MANDUJANO on 05/15/25 [facility] Ambulatory Visit Summaryon 0 04-24-2025 Ambulatory Visit Summary Ambulatory Visit Summary CHIKI JUAREZ :1945 Visit Date:04/24/2025 Ambulatory Visit Instructions Your Diagnosis History of prostate cancer BPH with urinary obstruction Asymptomatic microscopic hematuria Your Care Team Attending Physician - MIKE VENTURA, Oni Sewell Primary Care Physician - Maciej VENTURA, Elpidio This Is Your Medications List Contact prescribing physician if questions or concerns Misc Prescription (Electric scooter) Misc Prescription (Handicap Gilberto, 5 years.) Misc Prescription (Nebulizer accessory set) Oxygen (Oxygen - for Home) albuterol (albuterol 0.083% Inh Kasie 3 mL) aspirin (aspirin 81 mg Oral EC Tab) budesonide (budesonide 0.5 mg/2 mL Inh Susp) calcium-vitamin D cetirizine (cetirizine 10 mg Tab) cyanocobalamin (Vitamin B12) ensifentrine (Ohtuvayre 3 mg/ 2.5mL inhalation suspension) furosemide (furosemide 40 mg Tab) levothyroxine (levothyroxine 112 mcg (0.112 mg) Tab) metoprolol (metoprolol 25 mg ER [...] Cancer of skin, Skin cancer. Discharge Vitals Temperature (Temporal Artery) 37 ???C Heart Rate (Peripheral) 52 Respiratory Rate 17 Blood Pressure 101/65 Height 168 cm Height 66 in Weight 90.7 kg Weight 199.959 lb BMI 32.14 What to do next Scheduled Follow-Up Appointments 2025 9:30 AM EDT Where: [facility] [address] [address]- You Need to Schedule the Following Appointments Follow Up with MIKE VENTURA, Oni Sewell, BERNARDINO When: Only if needed Where: [address] [place] [address] [place] [address] Medications What How Much When Why Instructions [...] prescribing physician if questions or concerns Unchanged cetirizine (cetirizine 10 mg Tab) 1 Tablets By Mouth Every day Contact prescribing physician if questions or concerns Unchanged cyanocobalamin (Vitamin B12) Contact prescribing physician if questions or concerns Unchanged ensifentrine (Ohtuvayre 3 mg/ 2.5mL inhalation suspension) 3 Milligram Contact prescribing physician if questions or concerns Unchanged furosemide (furosemide 40 mg Tab) 1 Tablets By Mouth Every day Contact prescribing physician if questions or concerns Unchanged levothyroxine (levothyroxine 112 mcg (0.112 mg) Tab) 1 Tablets By Mouth Every day [...] Every day Oxygen - patient states his infertility nurse just increased this to 4LPM Contact prescribing physician if questions or concerns Unchanged potassium chloride (potassium chloride 10 mEq Cap-ER) 1 Capsules By Mouth Every day Contact prescribing physician if questions or concerns Unchanged sodium chloride (Hyper-Flaco 3.5% inhalation solution) See instructions per neulizer BID, skip one dose with increased swelling in feet- per patient Contact prescribing physician if questions or concerns Uncha (more content not included)... Normal [facility] Urology Office/Clinic Noteon 04-24-2025 Urology Office/Clinic Note Urology Office/Clinic Note Chief Complaint 1 year f/u HPI Staff Pt is a 80 year old male here for a 1 year follow up Previous dx: hx prostate cancer (EBRT 06/2019), BPH with urinary obstruction, microhematuria and weak stream. *No urologic meds S/p Cysto 03/31/23. Neg CT AP wo con 04/02/23 [facility]. PSA 01/26/23 - 0.3 03/03/24 - 0.33 11/21/24 - 0.24 IPSS score today is 5. Denies all urinary concerns at this time. History of Present Illness Tests reviewed: reviewed UA, PSA I have reviewed the previous health record [...] Physical Exam Vitals & Measurements T: 37 ???C(Temporal Artery) HR: 52(Peripheral) RR: 17 BP: 101/65 HT: 66 in HT: 168 cm WT: 90.7 kg WT: 199.959 lb BMI: 32.14 General Appearance: alert, no distress, well nourished, well developed male. Assessment/Plan 1. History of prostate cancer (Z85.46: Personal history of malignant neoplasm of prostate) Aquiles 7 (4+3) S/p EBRT 06/2019. PSA 09/23/21 - 0.47 01/26/23 - 0.3 03/03/24 - 0.33 11/21/24 - 0.24 PSA decreased from prior. Given stability, offered for pt to have PCP monitor PSA instead of following with our office. Shares he saw oncology recently for hx of lymphoma and they have been monitoring PSA again. -Cont following with PCP and oncology to monitor PSA annually 2. 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 Moderate bladder trabeculations. IPSS 5. No BPH meds. Good stream. Feels he empties. Taking diuretics which increases urgency. No overall bother with urination. -Cont sx monitoring 3. Asymptomatic microscopic hematuria (R31.21: Asymptomatic microscopic hematuria) Neg cytology 03/09/23. S/p Cysto 03/31/23 - No bladder tumors or stones. CT AP wo con 04/02/23 [facility] - No renal stones or hydro. ZAMZAM 03/03/24 [facility] - No stones or masses. Intermittent. UA today trace-lysed blood, similar to prior. Denies gross hematuria. -Cont routine UAs and sx monitoring. Pt knows to notify the office if he were to experience gross hematuria or clots. Follow-up With When Contact Information MIKE VENTURA, Oni Sewell, URL Only if needed [address] [place] [address] [place] [address] Additional Instructions: Patient Education Prostate Cancer Screening I, Nettie Wolff, personally scribed for Dr. Mckeon on 04/24/2025 10:52:12. . Documentation recorded by the scribe, Nettie Wolff, accurately reflects the services(s) I performed and decisions made by me. Authenticated by Dr. Mckeon on 04/24/2025 10:53:25. Problem List/Past Medical History Ongoing Asymptomatic microscopic [...] mg= 1 tab(s), Oral, Daily Handicap Placard, 5 years., See Instructions Hyper-Flaco 3.5% inhalation solution, See Instructions levothyroxine 112 mcg (0.112 mg) Tab, 112 mcg= 1 tab(s), Oral, Daily (more content not included)... [facility] Comment on above: Result Comment: Elec tronically Signed By: Oni MCKEON MD\.br\Date and Time Signed: 04/24/25 10:53 EDT\.br\Electronically Co-Signed By: Nettie Wolff\.br\Date and Time Co-Signed: 04/24/25 10:52 EDT Provider Letteron 03-08-2025 Provider Letter Provider Letter March 08, 2025 CHIKI JUAREZ [address] [place] [id number] CHIKI JUAREZ 1945 Dear Chiki , We have been trying to reach you with no success. It is important that you return our call regarding your discharge upon receiving this letter. Also, at the time of your call, please provide us with your current information. Thank you for your prompt attention to this matter. Sincerely, Tres VargasVentilation Mechanic [phone] [facility] Reminderson 02-23-2025 Reminders Reminders From: Marlys [...] below results. pt notified. Send rx to [facility] From: Rose Marie Sauceda (B - Clinical) To: Marlys Carcamo; Sent: 02/23/2025 14:49:36 EDT Show up: 02/23/2025 14:49:00 EDT Subject: RE: Ambulatory Reminder [facility] .Interpretation:on Interpretation: Comment Invalid Interpretation Code [facility] Comment on above: Result Comment: Not infected with HCV unless early or acute infection is suspected (which may be delayed in an immunocompromised individual), or other evidence exists to indicate HCV infection. Performed at: [facility] [address] [place], [place] [id number] PhD Sahra Robledo Performed By: #### 2 [id number] #### [facility] [address] [place] [address] HCV Antibody RFX to Quant PC Mac 02-19-2025 HCV Ab Non-Reactive Invalid Interpretation Code Non Reactive [facility] Comment on above: Result Comment: Perf ormed at: [facility] [place] [id number] [place], [place] [id number] PhD Sahra Robledo Performed By: #### 2 [id number] #### [facility] [address] [place] [address] CHEMISTRYOrdered By: SYSTEM SYSTEM on 02-16-2025 Albumin [...] (Bld) [Mass fraction] 6.0 % High <=5.9% [facility] ChemAutoSS CMPon 02-16-2025 Albumin [Mass/Vol] 3.8 g/dL Normal 3.3-5.0 [facility] Comment on above: Performed By: #### 2 [id number] #### [facility] [address] [place] [address] Albumin/Globulin [Mass ratio] 1.5 {ratio} Normal 1.1-2.2 [facility] Comment on above: Performed By: #### 2 [id number] #### [facility] [address] [place] [address] Alk Phos 81 Int._Unit/L Normal 21-98 [facility] Comment on above: Performed By: #### 2 [id number] #### [facility] [address] [place] [address] ALT 8 Int._Unit/L Normal 6-46 [facility] Comment on above: Performed By: #### 2 [id number] #### [facility] [address] [place] [address] Anion gap [Moles/Vol] 11 mmol/L Normal 6-16 [facility] Comment on above: Performed By: #### 2 [id number] #### [facility] [address] [place] [address] AST 11 Int._Unit/L Normal 5-43 [facility] Comment on above: Performed By: #### 2 086277 #### [facility] [address] [place] [address] Bili Total 0.5 mg/dL Normal 0.0-1.1 [facility] Comment on above: Performed By: #### 2 897821 #### [facility] [address] [place] [address] BUN/Creat Ratio 17 No Units Normal 10-20 [facility] Comment on above: Performed By: #### 2 [id number] #### [facility] [address] [place] [address] Calcium [Mass/Vol] 8.8 mg/dL Low 8.9-11.1 [facility] Comment on above: Performed By: #### 2 808782 #### [facility] [address] [place] [address] Chloride [Moles/Vol] 104 mmol/L Normal 101-111 [facility] Comment on above: Performed By: #### 2 488189 #### [facility] [address] [place] [address] CO2 [Moles/Vol] 26 mmol/L Normal 21-31 [facility] Comment on above: Performed By: #### 2 933756 #### [facility] [address] [place] [address] Creatinine [Mass/Vol] 1.2 mg/dL Normal 0.5-1.3 [facility] Comment on above: Performed By: #### 2 901419 #### [facility] [address] [place] [address] Globulin (S) [Mass/Vol] 2.6 g/dL Normal 1.4-4.0 [facility] Comment on above: Performed By: #### 2 529046 #### [facility] [address] [place] [address] Glucose [Mass/Vol] 104 mg/dL Normal 55-199 [facility] Comment on above: Performed By: #### 2 797434 #### [facility] [address] [place] [address] Potassium [Moles/Vol] 4.2 mmol/L Normal 3.5-5.3 [facility] Comment on above: Performed By: #### 2 878397 #### [facility] [address] [place] [address] Protein [Mass/Vol] 6.4 g/dL Normal 6.0-7.8 [facility] Comment on above: Performed By: #### 2 968052 #### [facility] [address] [place] [address] Sodium [Moles/Vol] 137 mmol/L Normal 135-145 [facility] Comment on above: Performed By: #### 2 757128 #### [facility] [address] [place] [address] Urea nitrogen [Mass/Vol] 20 mg/dL Normal 5-21 [facility] Comment on above: Performed By: #### 2 184681 #### [facility] [address] [place] [address] SseT4xip 02-16-2025 HbA1c (Bld) [Mass fraction] 6.0 % High <=5.9 [facility] Comment on above: Performed By: #### 7 [id number] #### [facility] [address] [place] [address] Lipid Panelon 02-16-2025 Cholesterol [Mass/Vol] 166 mg/dL Normal 120-200 [facility] Comment on above: Performed By: #### 2 486944 #### [facility] [address] [place] [address] Cholesterol in HDL [Mass/Vol] 35 mg/dL Invalid Interpretation Code [facility] Comment on above: Result Comment: '>= 60 LOW RISK' '<= 40 HIGH RISK' Performed By: #### 2 [id number] #### [facility] [address] [place] [address] Cholesterol in LDL [Mass/Vol] 113 mg/dL Normal <=129 [facility] Comment on above: Performed By: #### 2 071806 #### [facility] [address] [place] [address] Cholesterol in VLDL [Mass/Vol] 24 mg/dL Normal 7-40 [facility] Comment on above: Performed By: #### 2 946997 #### [facility] [address] [place] [address] Triglyceride [Mass/Vol] 119 mg/dL Normal <=149 [facility] Comment on above: Performed By: #### 2 453645 #### [facility] [address] [place] [address] TSHon 02-16-2025 TSH Qn 9.04 m[IU]/L High 0.34-5.60 [facility] Comment on above: Performed By: #### 2 529445 #### [facility] [address] [place] [address] eGFRon 02-16-2025 eGFR 62 mL/min/1.73 m2 Normal >=59 [facility] Comment on above: Performed By: #### 1 [id number] #### [facility] [address] [place] [address] Ambulatory Visit Summaryon 0 02-15-2025 Ambulatory Visit [...] List Misc Prescription (Electric scooter) Misc Prescription (Quinnshae Gilberto, 5 years.) Misc Prescription (Nebulizer accessory [...] Appointments 2024 11:00 AM EDT With: Where: [address] [address]- Thursday 9:45 AM EDT With: Oni MCKEON MD Where: [facility] [address] [place] [address]- 2025 9:30 AM EDT With: Where: [address] [place] [address]- You Need to Complete the Following Comprehensive [...] Every day Oxygen - patient states his infertility nurse just increased this to 4LPM Unchanged potassium chloride (potassium chloride 10 (more content not included)... Normal [facility] Ambulatory Visit Summary Ambulatory Visit Summary [...] Appointments 2024 11:00 AM EDT With: Where: [address] [address]- Thursday 9:45 AM EDT With: MIKE VENTURA, Oni Sewell Where: [facility] [address] [place] [address]- 2025 9:30 AM EDT With: Where: [address] [address]- You Need to Complete the Following Comprehensive [...] Every day Oxygen - patient states his infertility nurse just increased this to 4LPM Unchanged potassium chloride (potassium chloride 10 mEq Cap-ER) 1 Capsules By Mouth Every day Unchanged sodium chloride (Hyper-Flaco 3.5% inhalation solution) See instructions per neulizer BID, skip one dose with increased swelling in feet- per patient Unchan (more content not included)... [facility] Office/Clini c Noteon 02-15-2025 [...] of clutter to prevent tripping and/or falling. Lane Advance Directives reviewed, at home. Patient encouraged [...] patient requests, he will [place] [facility] prior to next [place]CP [...] and pulmono (more content not included)... [facility] [...] on Spiriva. sees Dr. Ferro and a infertility nurse in [place] as well. on 4 Liter O2. annual labs ordered. he has not had any water today so he will return for nurse visit. RTC 3 months Ordered: E&M of Est. Patient Low 20-29 Min 38775 2. Back pain (M54.9: Dorsalgia, unspecified) c/o worsening back pain. spine surgeon is not willing to do surgery due to lung condition. will send refill on T3 Ordered: E&M of Est. Patient Low 20-29 Min 43156 3. Former smoker (Z87.891: Personal history of nicotine dependence) continue not smoking Ordered: E&M of Est. Patient Low 20-29 Min 14421 4. BMI 34.0-34.9,adult, (Z68.34: Body mass index [BMI] 34.0-34.9, adult)Body mass index [BMI] 34.0-34.9, adult BMI education Ordered: E&M of Est. Patient Low 20-29 Min 24620 5. Class 1 obesity due to excess calories with body mass index (BMI) of 34.0 to 34.9 in adult (E66.811: Obesity, class 1) see above Ordered: E&M of Est. Patient Low 20-29 Min 03601 Orders: 1125F Pain severity quantified; pain present [...] Handicap Placard, (more content not included)... [facility] Comment on above: Result Comment: Elec tronically Signed By: Marlys Carcamo.otf\Date and Time Signed: 02/15/25 11:36 EDT No Panel Informationon 02-02 [facility] Ambulatory Visit Summaryon 0 11-24-2024 Ambulatory Visit [...] Appointments Thursday 8:00 AM EDT With: Where: [address] [address]- Thursday 9:00 AM EDT With: Navarro VENTURA, Pito Davidson Where: [address] [address]- Thursday 9:45 AM EDT With: MIKE VENTURA, Oni Sewell Where: [facility] [address] [place] [address]- Medications What How Much When Why Instructions [...] Every day Oxygen - patient states his infertility nurse just increased this to 4LPM Contact prescribing physician if questions or concerns Unchanged potassium chloride (potassium chloride 10 mEq Cap-ER) 1 Capsules By Mouth Every day Contact prescribing physician if questions or concerns Unchanged sodium chloride (Hyper-Flaco 3.5% inhalation solution) See instructions per neulizer BID, skip one dose wi (more content not included)... [facility] Office/Clini c Noteon 11-24-2024 [...] patient is also maintaining follow-ups with a infertility nurse for pulmonary hypertension and noted no new [...] function evaluation conducted. - Scheduled follow-up with infertility nurse for pulmonary hypertension. - Upcoming re-evaluation for [...] pending. Pulmonary hypertension remains stable per routine infertility nurse follow-ups. B-cell lymphoma continues to be ma (more content not included)... [facility] Comment on above: Result Comment: Elec tronically Signed By: Navarro VENTURA, Pito Davidson\.br\Date and Time Signed: 11/24/24 13:39 EDT No Panel Informationon 11-22 [facility] PROSTATE-SPECIFIC ANTIGEN DI AGNOSTICon 11-22-2024 Prostate specific Ag [Mass/Vol] 0.24 ng/mL NINF - 2.60 ng/mL [facility] Comment on above: Total PSA test metho dology used is the Electrochemiluminescence Immunoassay by [employer]. Total PSA values by differing methodologies cannot be interchanged. Prostate specific Ag [Mass/V ol]on 11-22-2024 Interpretation and review of laboratory results Normal [facility] T4/FTI/T4Uon 11-22-2024 FTI 7 ug/dL 5.3 - 10.8 ug/dL [facility] Interpretation and review of laboratory results Abnormal [facility] T4 [Mass/Vol] 6.1 ug/dL 5.5 - 10.2 ug/dL [facility] T4 uptake [Mass/Vol] 0.87 Low 0.91 - 1.19 [facility] THYROID STIMULATING HORMONEo n 11-22-2024 TSH Qn 2.01 m[IU]/L [facility] TSH Qnon 11-22-2024 Interpretation and review of laboratory results Normal [facility] CNOVSPon 11-21-2024 CNOVSP Visit (SP) Office (H EMASA) -- CHIKI JUAREZ ([id number]) 1945 M Date Time Provider Department 11/21/24 [...] influenza A infection and was hospitalized at [facility]. Apparently his symptoms were severe enough that [...] (more content not included)... Normal [facility] PSA SerPl-mCncon 11-21-2024 Prostate specific Ag [Mass/Vol] 0.24 ng/mL Normal <2.60 [facility] Comment on above: Order Comment: Speci men Type: BLOOD SPECIMENOrdering Facility: [facility] Address: [address] [place] [address] Result Comment: Skyler moses PSA test methodology used is the Electrochemiluminescence Immunoassay by [employer]. Total PSA values by differing methodologies cannot be interchanged. Performed By: #### 2 857-1 ####[facility] [id number] [place] [address] [place] T4/FTI/T4Uon 11-21-2024 FTI 7.0 ug/dL Normal 5.3-10.8 [facility] Comment on above: Order Comment: Speci men Type: BLOOD SPECIMENOrdering Facility: [facility] Address: [address] [place] [address] Performed By: #### Pawan FERGUSON, 3015-3 ####[facility] [id number] [place] [address] [place] T4 [Mass/Vol] 6.1 ug/dL Normal 5.5-10.2 [facility] Comment on above: Order Comment: Speci men Type: BLOOD SPECIMENOrdering Facility: [facility] Address: [address] [place] [address] Performed By: #### Pawan FERGUSON, 3015-3 ####[facility] LABIA [id number] [place] [address] [place] T4 uptake [Mass/Vol] 0.87 Low 0.91-1.19 [facility] Comment on above: Order Comment: Speci men Type: BLOOD SPECIMENOrdering Facility: [facility] Address: [address] [place] [address] Performed By: #### Pawan FERGUSON, 6-3 ####[facility] LABIA [id number] [place] [address] [place] TSH SerPl-aCncon 11-21-2024 TSH Qn 2.010 m[IU]/L Normal 0.270-4.200 [facility] Comment on above: Order Comment: Speci men Type: BLOOD SPECIMENOrdering Facility: [facility] Address: [address] [place] [address] Performed By: #### Pawan FERGUSON, 6-3 ####[facility] LABIA [id number] [place] [address] [place] CBC W Auto Differential pane l (Bld)on 11-16-2024 Anisocytosis Ql (Bld) Present [facility] Basophils (Bld) [#/Vol] 0.05 10*3/uL [facility] Basophils/100 WBC (Bld) 0.9 % [facility] Differential cell count method Nom (Bld) Manual [facility] Eosinophils (Bld) [#/Vol] 0.05 10*3/uL [facility] Eosinophils/100 WBC (Bld) 0.9 % [facility] Erythrocyte distribution width (RBC) [Ratio] 16.2 % High 11.5 - 15.0 % [facility] Hematocrit (Bld) [Volume fraction] 35.7 % Low 39.0 - 51.0 % [facility] Hemoglobin (Bld) [Mass/Vol] 11.5 g/dL Low 13.0 - 17.0 g/dL [facility] Interpretation and review of laboratory results Abnormal [facility] Lymphocytes (Bld) [#/Vol] 1.14 10*3/uL [facility] Lymphocytes/100 WBC (Bld) 20.5 % [facility] MCH (RBC) [Entitic mass] 34.4 pg High 26.0 - 34.0 pg [facility] MCHC (RBC) [Mass/Vol] 32.2 g/dL 30.5 - 36.0 g/dL [facility] MCV (RBC) [Entitic vol] 106.9 fL High 80.0 - 100.0 fL [facility] [place] % 2.6 % [facility] Monocytes (Bld) [#/Vol] 1.85 10*3/uL High [facility] Monocytes/100 WBC (Bld) 33.3 % [facility] Myelo % 6.8 % [facility] Neutrophils (Bld) [#/Vol] 1.94 10*3/uL [facility] Neutrophils/100 WBC (Bld) 35 % [facility] Nucleated RBC (Bld) [#/Vol] [facility] Nucleated RBC/100 WBC (Bld) [Ratio] 0 % /100 WBC [facility] Ovalocytes LM Ql (Bld) Few [facility] Platelet mean volume (Bld) [Entitic vol] 10.9 fL 9.0 - 12.7 fL [facility] Platelets (Bld) [#/Vol] 186 10*3/uL [facility] Platelets Estimate (Bld) [#/Vol] Adequate [facility] Polychromasia LM Ql (Bld) Slight [facility] RBC (Bld) [#/Vol] 3.34 10*6/uL Low 4.20 - 6.0 0 m/uL [facility] Red Cell Morph Reviewed: see result s of individual morphologies [facility] WBC (Bld) [#/Vol] 5.55 10*3/uL [facility] WBC Left Shift Ql (Bld) Present [facility] This is an appended report. These results have been appended to a previously verified report. [facility] PROTEIN, TOTALon 11-16-2024 Protein [Mass/Vol] 6.8 g/dL 6.3 - 8.0 g/dL [facility] Protein [Mass/Vol]on Interpretation and review of laboratory results Normal [facility] CBC W Auto Differential pane l (Bld)on 11-15-2024 Anisocytosis Ql (Bld) Present Normal [facility] Comment on above: Order Comment: Speci men Type: BLOOD SPECIMENOrdering Facility: [facility] Address: [address] [place] [address] Performed By: #### 5 7021-8 ####[facility] LABCLIA [id number] [address] LABCLIA [id number] [place] [address] [place] Basophils (Bld) [#/Vol] 0.05 10*3/uL Normal <0.11 [facility] Comment on above: Order Comment: Speci men Type: BLOOD SPECIMENOrdering Facility: [facility] Address: [address] [place] [address] Performed By: #### 5 7021-8 ####[facility] LABCLIA [id number] [address] LABCLIA [id number] [place] [address] [place] Basophils/100 WBC (Bld) 0.9 % Normal [facility] Comment on above: Order Comment: Speci men Type: BLOOD SPECIMENOrdering Facility: [facility] Address: [address] [place] [address] Performed By: #### 5 7021-8 ####[facility] LABCLIA [id number] [address] LABCLIA [id number] [place] [address] [place] Differential cell count method Nom (Bld) Manual Normal [facility] Comment on above: Order Comment: Speci men Type: BLOOD SPECIMENOrdering Facility: [facility] Address: [address] [place] [address] Performed By: #### 5 7021-8 ####[facility] LABCLIA [id number] [address] LABCLIA [id number] [place] [address] [place] Eosinophils (Bld) [#/Vol] 0.05 10*3/uL Normal <0.46 [facility] Comment on above: Order Comment: Speci men Type: BLOOD SPECIMENOrdering Facility: [facility] Address: [address] [place] [address] Performed By: #### 5 7021-8 ####[facility] LABCLIA [id number] [address] LABCLIA [id number] [place] [address] [place] Eosinophils/100 WBC (Bld) 0.9 % Normal [facility] Comment on above: Order Comment: Speci men Type: BLOOD SPECIMENOrdering Facility: [facility] Address: [address] [place] [address] Performed By: #### 5 7021-8 ####[facility] LABCLIA [id number] [place] [id number] LABCLIA [id number] [place] [address] [place] Erythrocyte distribution width (RBC) [Ratio] 16.2 % High 11.5-15.0 [facility] Comment on above: Order Comment: Speci men Type: BLOOD SPECIMENOrdering Facility: [facility] Address: [address] [place] [address] Performed By: #### 5 7021-8 ####[facility] LABCLIA [id number] [address] LABCLIA [id number] [place] [address] [place] Hematocrit (Bld) [Volume fraction] 35.7 % Low 39.0-51.0 [facility] Comment on above: Order Comment: Speci men Type: BLOOD SPECIMENOrdering Facility: [facility] Address: [address] [place] [address] Performed By: #### 5 7021-8 ####[facility] LABCLIA [id number] [address] LABCLIA [id number] [place] [address] [place] Hemoglobin (Bld) [Mass/Vol] 11.5 g/dL Low 13.0-17.0 [facility] Comment on above: Order Comment: Speci men Type: BLOOD SPECIMENOrdering Facility: [facility] Address: [address] [place] [address] Performed By: #### 5 7021-8 ####[facility] LABCLIA [id number] [address] LABCLIA [id number] [place] [address] [place] Lymphocytes (Bld) [#/Vol] 1.14 10*3/uL Normal 1.00-4.00 [facility] Comment on above: Order Comment: Speci men Type: BLOOD SPECIMENOrdering Facility: [facility] Address: [address] [place] [address] Performed By: #### 5 7021-8 ####[facility] LABCLIA [id number] [address] LABCLIA [id number] [place] [address] [place] Lymphocytes/100 WBC (Bld) 20.5 % Normal [facility] Comment on above: Order Comment: Speci men Type: BLOOD SPECIMENOrdering Facility: [facility] Address: [address] [place] [address] Performed By: #### 5 7021-8 ####[facility] LABCLIA [id number] [address] LABCLIA [id number] [place] [address] [place] MCH (RBC) [Entitic mass] 34.4 pg High 26.0-34.0 [facility] Comment on above: Order Comment: Speci men Type: BLOOD SPECIMENOrdering Facility: [facility] Address: [address] [place] [address] Performed By: #### 5 7021-8 ####[facility] LABCLIA [id number] [address] LABCLIA [id number] [place] [address] [place] MCHC (RBC) [Mass/Vol] 32.2 g/dL Normal 30.5-36.0 [facility] Comment on above: Order Comment: Speci men Type: BLOOD SPECIMENOrdering Facility: [facility] Address: [address] [place] [address] Performed By: #### 5 7021-8 ####[facility] LABCLIA [id number] [place] [id number] LABCLIA [id number] [place] [id number] [place] MCV (RBC) [Entitic vol] 106.9 fL High 80.0-100.0 [facility] Comment on above: Order Comment: Speci men Type: BLOOD SPECIMENOrdering Facility: [facility] Address: [address] [place] [address] Performed By: #### 5 7021-8 ####[facility] LABCLIA [id number] [address] LABCLIA [id number] [place] [address] [place] Metamyelocytes/100 WBC (Bld) 2.6 % Normal [facility] Comment on above: Order Comment: Speci men Type: BLOOD SPECIMENOrdering Facility: [facility] Address: [address] [place] [address] Performed By: #### 5 7021-8 ####[facility] LABCLIA [id number] [place] [id number] LABCLIA [id number] [place] [address] [place] Monocytes (Bld) [#/Vol] 1.85 10*3/uL High <0.87 [facility] Comment on above: Order Comment: Speci men Type: BLOOD SPECIMENOrdering Facility: [facility] Address: [address] [place] [address] Performed By: #### 5 7021-8 ####[facility] LABCLIA [id number] [place] [id number] LABCLIA [id number] [place] [address] [place] Monocytes/100 WBC (Bld) 33.3 % Normal [facility] Comment on above: Order Comment: Speci men Type: BLOOD SPECIMENOrdering Facility: [facility] Address: [address] [place] [address] Performed By: #### 5 7021-8 ####[facility] LABCLIA [id number] [place] [id number] LABCLIA [id number] [address] [address] [place] MYELO% 6.8 % Normal [facility] Comment on above: Order Comment: Speci men Type: BLOOD SPECIMENOrdering Facility: [facility] Address: [address] [place] [address] Performed By: #### 5 7021-8 ####[facility]É [facility] LABCLIA [id number] [address] LABCLIA [id number] [place] [address] [place] Neutrophils (Bld) [#/Vol] 1.94 10*3/uL Normal 1.45-7.50 [facility] Comment on above: Order Comment: Speci men Type: BLOOD SPECIMENOrdering Facility: [facility] Address: [address] [place] [address] Performed By: #### 5 7021-8 ####[facility]ITAL[facility] LABCLIA [id number] [place] [id number] LABCLIA [id number] [facility] [place] [id number] [place] Neutrophils/100 WBC (Bld) 35.0 % Normal [facility] Comment on above: Order Comment: Speci men Type: BLOOD SPECIMENOrdering Facility: [facility] Address: [address] [place] [address] Performed By: #### 5 7021-8 ####[facility] LABCLIA [id number] [address] LABCLIA [id number] [place] [address] [place] Nucleated RBC (Bld) [#/Vol] 10*3/uL Normal <0.01 [facility] Comment on above: Order Comment: Speci men Type: BLOOD SPECIMENOrdering Facility: [facility] Address: [address] [place] [address] Performed By: #### 5 7021-8 ####[facility] LABCLIA [id number] [address] LABCLIA [id number] [place] [address] [place] Nucleated RBC/100 WBC (Bld) [Ratio] 0.0 /100 WBC Normal [facility] Comment on above: Order Comment: Speci men Type: BLOOD SPECIMENOrdering Facility: [facility] Address: [address] [place] [address] Performed By: #### 5 7021-8 ####[facility] LABCLIA [id number] [address] LABCLIA [id number] [place] [address] [place] Ovalocytes LM Ql (Bld) Few Normal [facility] Comment on above: Order Comment: Speci men Type: BLOOD SPECIMENOrdering Facility: [facility] Address: [address] [place] [address] Performed By: #### 5 7021-8 ####[facility] LABCLIA [id number] [place] [id number] LABCLIA [id number] [place] [address] [place] Platelet mean volume (Bld) [Entitic vol] 10.9 fL Normal 9.0-12.7 [facility] Comment on above: Order Comment: Speci men Type: BLOOD SPECIMENOrdering Facility: [facility] Address: [address] [place] [address] Performed By: #### 5 7021-8 ####[facility]ITAL[facility] LABCLIA [id number] [place] [id number] LABCLIA [id number] [place] [address] [place] Platelets (Bld) [#/Vol] 186 10*3/uL Normal 150-400 [facility] Comment on above: Order Comment: Speci men Type: BLOOD SPECIMENOrdering Facility: [facility] Address: [address] [place] [address] Performed By: #### 5 7021-8 ####[facility] LABCLIA [id number] [address] LABCLIA [id number] [place] [address] [place] Platelets Estimate (Bld) [#/Vol] Adequate Normal [facility] Comment on above: Order Comment: Speci men Type: BLOOD SPECIMENOrdering Facility: [facility] Address: [address] [place] [address] Performed By: #### 5 7021-8 ####[facility] LABCLIA [id number] [address] LABCLIA [id number] [place] [id number] [place] Polychromasia LM Ql (Bld) Slight Normal [facility] Comment on above: Order Comment: Speci men Type: BLOOD SPECIMENOrdering Facility: [facility] Address: [address] [place] [address] Performed By: #### 5 7021-8 ####[facility] LABCLIA [id number] [address] LABCLIA [id number] [address] [place] [address] [place] RBC (Bld) [#/Vol] 3.34 10*6/uL Low 4.20-6.00 [facility] Comment on above: Order Comment: Speci men Type: BLOOD SPECIMENOrdering Facility: [facility] Address: [address] [place] [address] Performed By: #### 5 7021-8 ####[facility] LABCLIA [id number] [place] [id number] LABCLIA [id number] [place] [address] [place] RED CELL MORPH Reviewed: see result s of individual morphologies Normal [facility] Comment on above: Order Comment: Speci men Type: BLOOD SPECIMENOrdering Facility: [facility] Address: [address] [place] [address] Performed By: #### 5 7021-8 ####[facility] LABCLIA [id number] [address] LABCLIA [id number] [place] [address] [place] WBC (Bld) [#/Vol] 5.55 10*3/uL Normal 3.70-11.00 [facility] Comment on above: Order Comment: Speci men Type: BLOOD SPECIMENOrdering Facility: [facility] Address: [address] [place] [address] Performed By: #### 5 7021-8 ####[facility] LABCLIA [id number] [address] LABCLIA [id number] [place] [address] [place] WBC Left Shift Ql (Bld) Present Normal [facility] Comment on above: Order Comment: Speci men Type: BLOOD SPECIMENOrdering Facility: [facility] Address: [address] [place] [address] Performed By: #### 5 7021-8 ####[facility]ITAL[facility] LABCLIA [id number] [address] [facility] LABCLIA [id number] [address] [address] [place] CHEST W IVCONon CT CHEST W IVCON * * *Final Report* * * DATE OF EXAM: Nov 15 2024 3:21PM [facility] 0539 - CT CHEST [...] abdomen: Visualized upper abdomen is grossly unremarkable. Human Resources Representative (topogram) images: Unremarkable. IMPRESSION: No lymphadenopathy in [...] any questions regarding this interpretation, please call [phone]. If you are unable to reach us at the number above, please feel free to contact [facility] eRadiology at [phone]. [id number] Normal [facility] CT Chest W contrast Shantel [...] any questions regarding this interpretation, please call [phone]. If you are unable to reach us at the number above, please feel free to contact [facility] eRadiology at [phone]. DIVISION OF RADIOLOGY * * *Final Report* * * DATE OF EXAM: Nov 15 2024 3:21PM [facility] 0539 - CT CHEST [...] abdomen: Visualized upper abdomen is grossly unremarkable. Human Resources Representative (topogram) images: Unremarkable. DIVISION OF RADIOLOGY Provider, Clay Miller - 11/15/2024 * * *Final Report* * * DATE OF EXAM: Nov 15 2024 3:21PM [facility] 0539 - CT CHEST [...] abdomen: Visualized upper abdomen is grossly unremarkable. Human Resources Representative (topogram) images: Unremarkable. IMPRESSION IMPRESSION: No lymphadenopathy [...] any questions regarding this interpretation, please call [phone]. If you are unable to reach us at the number above, please feel free to contact [facility] eRadiology at [phone]. [facility] Radiology Study observation (narrative) [facility] CT Chest W contrast IVOrdere d By: [facility] Provider on 11-15-2024 [facility] Comp Metab 2000 Pnl SerPlon 11-15-2024 Protein [Mass/Vol] 6.8 g/dL Normal 6.3-8.0 [facility] Comment on above: Order Comment: Speci men Type: BLOOD SPECIMENOrdering Facility: [facility] Address: [address] [place] [address] Performed By: #### 2 4323-8 ####[facility] LABCLIA [id number] [place] [id number] Performed By: #### 2 885-2 ####[facility] LABCLIA [id number] [address] [facility] Comprehensive metabolic 2000 panelOrdered By: Niki Lynn on 11-15-2024 Albumin [Mass/Vol] 3.8 g/dL Low 3.9 - 4.9 g/dL [facility] ALP [Catalytic activity/Vol] 83 U/L 38 - 113 U/L [facility] ALT [Catalytic activity/Vol] 9 U/L Low 10 - 54 U/L [facility] Anion gap [Moles/Vol] 12 mmol/L 8 - 15 mmol/L [facility] AST [Catalytic activity/Vol] 14 U/L 14 - 40 U/L [facility] Bilirubin [Mass/Vol] 0.4 mg/dL 0.2 - 1 .3 mg/dL [facility] Calcium [Mass/Vol] 9.3 mg/dL 8.5 - 10. 2 mg/dL [facility] Chloride [Moles/Vol] 104 mmol/L 98 - 10 7 mmol/L [facility] CO2 [Moles/Vol] 24 mmol/L 22 - 30 mmol/L [facility] Creatinine [Mass/Vol] 1.27 mg/dL High 0.73 - 1.22 mg/dL [facility] GFR/1.73 sq M.predicted among non-blacks MDRD (S/P/Bld) [Vol rate/Area] 58 mL/min/{1.73_m2} Low - PINF [facility] Comment on above: Estimated Glomerular Filtration Rate (eGFR) is calculated using the 202 CKD-EPI creatinine equation. This equation utilizes serum creatinine, sex, and age as parameters. The creatinine assay has traceable calibration to isotope dilution-mass spectrometry. Refer to KDIGO guidelines for clinical interpretation. In patients with unstable renal function, e.g. those with acute kidney injury, the eGFR may not accurately reflect actual GFR. Glucose [Mass/Vol] 110 mg/dL High 74 - 99 mg/dL [facility] Comment on above: The [place] Diab[employer] Association (ADA) provides guidance for [...] Standards of Medical Care in Diabetes 2016, [place] [employer]. Diabetes Care. 2016.39(Suppl 1). Interpretation and review of laboratory results Abnormal [facility] Potassium [Moles/Vol] 4 mmol/L 3.7 - 5.1 mmol/L [facility] Protein [Mass/Vol] 6.8 g/dL 6.3 - 8.0 g/dL [facility] Sodium [Moles/Vol] 140 mmol/L 136 - 144 mmol/L [facility] Urea nitrogen [Mass/Vol] 21 mg/dL 9 - 24 mg/dL [facility] Comprehensive metabolic 2000 panelon 11-15-2024 Albumin [Mass/Vol] 3.8 g/dL Low 3.9-4.9 [facility] Comment on above: Order Comment: Speci men Type: BLOOD SPECIMENOrdering Facility: [facility] Address: [address] [place] [address] Performed By: #### 2 4323-8 ####[facility] LABCLIA [id number] [place] [address] ALP [Catalytic activity/Vol] 83 U/L Normal 38-113 [facility] Comment on above: Order Comment: Speci men Type: BLOOD SPECIMENOrdering Facility: [facility] Address: [address] [place] [address] Performed By: #### 2 4323-8 ####[facility] LABCLIA [id number] [place] [address] ALT [Catalytic activity/Vol] 9 U/L Low 10-54 [facility] Comment on above: Order Comment: Speci men Type: BLOOD SPECIMENOrdering Facility: [facility] Address: [address] [place] [address] Performed By: #### 2 4323-8 ####[facility] LABCLIA [id number] [place] [address] Anion gap [Moles/Vol] 12 mmol/L Normal 8-15 [facility] Comment on above: Order Comment: Speci men Type: BLOOD SPECIMENOrdering Facility: [facility] Address: [address] [place] [address] Performed By: #### 2 4323-8 ####[facility] LABCLIA [id number] [place] [address] AST [Catalytic activity/Vol] 14 U/L Normal 14-40 [facility] Comment on above: Order Comment: Speci men Type: BLOOD SPECIMENOrdering Facility: [facility] Address: [address] [place] [address] Performed By: #### 2 4323-8 ####[facility] LABCLIA [id number] [place] [address] Bilirubin [Mass/Vol] 0.4 mg/dL Normal 0.2-1.3 [facility] Comment on above: Order Comment: Speci men Type: BLOOD SPECIMENOrdering Facility: [facility] Address: [address] [place] [address] Performed By: #### 2 4323-8 ####[facility] LABCLIA [id number] [place] [address] Calcium [Mass/Vol] 9.3 mg/dL Normal 8.5-10.2 [facility] Comment on above: Order Comment: Speci men Type: BLOOD SPECIMENOrdering Facility: [facility] Address: [address] [place] [address] Performed By: #### 2 4323-8 ####[facility] LABCLIA [id number] [place] [address] Chloride [Moles/Vol] 104 mmol/L Normal 98-107 [facility] Comment on above: Order Comment: Speci men Type: BLOOD SPECIMENOrdering Facility: [facility] Address: [address] [place] [address] Performed By: #### 2 4323-8 ####[facility] LABCLIA [id number] [place] [address] CO2 [Moles/Vol] 24 mmol/L Normal 22-30 [facility] Comment on above: Order Comment: Speci men Type: BLOOD SPECIMENOrdering Facility: [facility] Address: [address] [place] [address] Performed By: #### 2 4323-8 ####[facility] LABCLIA [id number] [place] [address] Creatinine [Mass/Vol] 1.27 mg/dL High 0.73-1.22 [facility] Comment on above: Order Comment: Speci men Type: BLOOD SPECIMENOrdering Facility: [facility] Address: [address] [place] [address] Performed By: #### 2 4323-8 ####[facility] LABCLIA [id number] [place] [address] Creatinine and Glomerular filtration rate.predicted panel (S/P/Bld) 58 mL/min/1.73m??? Low >=60 [facility] Comment on above: Order Comment: Speci men Type: BLOOD SPECIMENOrdering Facility: [facility] Address: [address] [place] [id number] Result Comment: Ary mated Glomerular Filtration Rate [...] reflect actual GFR. Performed By: #### 2 4323-8 ####[facility] LABCLIA [id number] [place] [address] Glucose [Mass/Vol] 110 mg/dL High 74-99 [facility] Comment on above: Order Comment: Liliya hadley Type: BLOOD SPECIMENOrdering Facility: [facility] Address: [address] [place] [address] Result Comment: The [place] Diabetes Association (ADA) provides guidance for cutoff [...] Standards of Medical Care in Diabetes 2016, [place] [employer]. Diabetes Care. 2016.39(Suppl 1). Performed By: #### 2 4323-8 ####[facility] LABCLIA [id number] [place] [address] Potassium [Moles/Vol] 4.0 mmol/L Normal 3.7-5.1 [facility] Comment on above: Order Comment: Liliya hadley Type: BLOOD SPECIMENOrdering Facility: [facility] Address: [address] [place] [id number] Performed By: #### 2 4323-8 ####[facility] LABCLIA [id number] [place] [address] Sodium [Moles/Vol] 140 mmol/L Normal 136-144 [facility] Comment on above: Order Comment: Speci men Type: BLOOD SPECIMENOrdering Facility: [facility] Address: [address] [place] [address] Performed By: #### 2 4323-8 ####[facility] LABCLIA [id number] [place] [address] Urea nitrogen [Mass/Vol] 21 mg/dL Normal 9-24 [facility] Comment on above: Order Comment: Speci men Type: BLOOD SPECIMENOrdering Facility: [facility] Address: [address] [place] [address] Performed By: #### 2 4323-8 ####[facility] LABCLIA [id number] [place] [address] IMMUNOFIXATION SCREEN, SERUM on 11-15-2024 MPA RESULT No M protein is identified. Normal No M protein is identified. [facility] Comment on above: Order Comment: Speci men Type: BLOOD SPECIMENOrdering Facility: [facility] Address: [address] [place] [address] Performed By: #### I FES ####[facility] LABCLIA [id number] [address] [address] [place] STAFF REVIEW (MPA) Reviewed by Xiomara powell M.D. Normal [facility] Comment on above: Order Comment: Speci men Type: BLOOD SPECIMENOrdering Facility: [facility] Address: [address] [place] [address] Performed By: #### I FESC ####[facility] LABCLIA [id number] [address] [address] [place] IMMUNOGLOBULINS,IGG,IGA,IGMo n 11-15-2024 IgA [Mass/Vol] 127 mg/dL Normal 70-400 [facility] Comment on above: Order Comment: Speci men Type: BLOOD SPECIMENOrdering Facility: [facility] Address: [address] [place] [address] Performed By: #### S ERIMM ####[facility] LABCLIA [id number] [place] [address] [place] IgG [Mass/Vol] 1016 mg/dL Normal 700-1600 [facility] Comment on above: Order Comment: Speci men Type: BLOOD SPECIMENOrdering Facility: [facility] Address: [address] [place] [address] Performed By: #### S ERIMM ####[facility] LABCLIA [id number] [place] [address] [place] IgM [Mass/Vol] 109 mg/dL Normal 40-230 [facility] Comment on above: Order Comment: Speci men Type: BLOOD SPECIMENOrdering Facility: [facility] Address: [address] [place] [address] Performed By: #### S ERIMM ####[facility] LABIA [id number] [place] [address] [place] KAPPA/ARDON,FREE,SERon 2024 Immunoglobulin light chains.kappa.free (S) [Mass/Vol] 27.0 mg/L High 3.3-19.4 [facility] Comment on above: Order Comment: Speci men Type: BLOOD SPECIMENOrdering Facility: [facility] Address: [address] [place] [address] Result Comment: Rare ly, increased serum free light chains levels may not be detected or accurately quantified due to prozone phenomenon or in high viscosity samples using this immunoturbidimetric assay. Correlation with other laboratory results and clinical findings is recommended. The [place] Free Light Chain was performed using the Binding Site Optilite immunoturbidimetric method. Result obtained with different assay methods or kits cannot be used interchangeably. Performed By: #### K LFRS ####[facility] LABCLIA [id number] [place] [address] [place] Immunoglobulin light chains.kappa/Immunog lobulin light chains.lambda (S) [Mass ratio] 1.66 High 0.26-1.65 [facility] Comment on above: Order Comment: Speci men Type: BLOOD SPECIMENOrdering Facility: [facility] Address: [address] [place] [address] Performed By: #### K LFRS ####[facility] LABIA [id number] [place] [address] [place] Immunoglobulin light chains.lambda.free [Mass/Vol] 16.3 mg/L Normal 5.7-26.3 [facility] Comment on above: Order Comment: Speci men Type: BLOOD SPECIMENOrdering Facility: [facility] Address: [address] [place] [address] Result Comment: Rare ly, increased serum free [...] used interchangeably. Performed By: #### K LFRS ####[facility] LABIA [id number] [place] [address] [place] PROTEIN ELECTROPHORESIS SERU M (P)on 11-15-2024 Albumin [Mass/Vol] 3.85 g/dL Normal 3.43-5.41 [facility] Comment on above: Order Comment: Speci men Type: BLOOD SPECIMENOrdering Facility: [facility] Address: [address] [place] [address] Performed By: #### L [id number] ####[facility] LABIA [id number] [place] [address] [place] Alpha 1 globulin Elph [Mass/Vol] 0.40 g/dL Normal 0.18-0.43 [facility] Comment on above: Order Comment: Speci men Type: BLOOD SPECIMENOrdering Facility: [facility] Address: [address] [place] [address] Performed By: #### L [id number] ####[facility] LABIA [id number] [place] [address] [place] Alpha 2 globulin Elph [Mass/Vol] 0.80 g/dL Normal 0.42-0.98 [facility] Comment on above: Order Comment: Speci men Type: BLOOD SPECIMENOrdering Facility: [facility] Address: [address] [place] [address] Performed By: #### L [id number] ####[facility] LABCLIA [id number] [place] [address] [place] Beta globulin Elph [Mass/Vol] 0.82 g/dL Normal 0.61-1.17 [facility] Comment on above: Order Comment: Speci men Type: BLOOD SPECIMENOrdering Facility: [facility] Address: [address] [place] [address] Performed By: #### L [id number] ####[facility] LABCLIA [id number] [address] [place] Gamma globulin Elph [Mass/Vol] 0.93 g/dL Normal 0.53-1.51 [facility] Comment on above: Order Comment: Speci men Type: BLOOD SPECIMENOrdering Facility: [facility] Address: [address] [place] [address] Performed By: #### L [id number] ####[facility] LABCLIA [id number] [place] [id number] [place] M-PROTEIN LOCATION Normal [facility] Comment on above: Order Comment: Speci men Type: BLOOD SPECIMENOrdering Facility: [facility] Address: [address] [place] [address] Result Comment: Not Applicable. Performed By: #### L [id number] ####[facility] LABCLIA [id number] [address] STATES [facility] Protein Fractions [Interp] No definitive M protein is identified on protein electrophoresis. Normal No definitive M protein is identified on protein electrophore sis. [facility] Comment on above: Order Comment: Speci men Type: BLOOD SPECIMENOrdering Facility: [facility] Address: [address] [place] [address] Performed By: #### L [id number] ####[facility] LABIA [id number] [address] Protein.monoclonal Elph [Mass/Vol] 0.00 g/dL Normal <=0.00 [facility] Comment on above: Order Comment: Speci men Type: BLOOD SPECIMENOrdering Facility: [facility] Address: [address] [place] [address] Performed By: #### L [id number] ####[facility] LABIA [id number] [address] SPE STAFF REVIEW Reviewed by Xiomara powell M.D. Normal [facility] Comment on above: Order Comment: Speci men Type: BLOOD SPECIMENOrdering Facility: [facility] Address: [address] [place] [address] Performed By: #### L [id number] ####[facility] LABIA [id number] [place] [id number] [facility] [place] 36on 11-07-2024 36 Regarding echo resul t from 11/04/2024: MD Mayra Wellnigton MA His echocardiogram shows stable findings. Follow-up as planned. Patient made aware. [facility] Office Visiton 10-21-2024 Follow-up visit [id number] Tremaine Juarez 1945 M Date Provider Department Center 10/21/2024 Laura-[facility]ANIELLA [facility] Family History Problem Relation Age of Onset Stroke Father Family Status - Relation Status Age at Father Level of Service:08186 IN OFFICE/OUTPATIENT ESTABLISHED LOW MDM 20 MIN Normal [facility] CNPShantel 10-14-2024 CNPN Telephone (HEMTSA) -- CHIKI JUAREZ ([id number]) 1945 M Date Time Provider Department 10/14/24 TYLER DRAPER HEMTSA During your visit today, we recorded the following information about you: Seema Drake RN 10/14/2024 1:07 PM Signed Please sign pended labs for 6 month f/u if agreeable-will draw with CT 1 week prior Thank You! 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] Order(s):COMPREHENSIVE METABOLIC PANEL [SQCMP] Order #: [id number] FUTURE COMPLETE BLOOD COUNT AND DIFFERENTIAL [SQCBCDIF] Order #: [id number] FUTURE PROTEIN ELECTROPHORESIS SERUM W/INTERP [SQSEPG] Order #: [id number] FUTURE MONOCLONAL PROTEIN, SERUM (BLOOD) [SQSERMPA] Order #: [id number] FUTURE Prescriptions as of 10/14/2024 - TEZSPIRE [...] Status:Closed by ARABELLA MANDUJANO on 10/14/24 Normal [facility] Ambulatory Visit Summaryon 0 08-25-2024 [...] PM EDT With: Pito Patterson MD Where: [facility] [address] [address]- Thursday 8:00 AM EDT With: Where: [facility] [address] [address]- Thursday 9:45 AM EDT With: MIKE VENTURA, Oni Sewell Where: [facility] [address] [place] [address] [place] [address]- Medications What How Much When Why Instructions [...] Every day Oxygen - patient states his infertility nurse just increased this to 4LPM Unchanged potassium [...] prostate cance (more content not included)... Normal [facility] Family Medicine Office/Clini c Noteon 08-25-2024 [...] to trialing Zyrtec for congestion relief. The infertility nurse, overseeing ongoing respiratory management, is scheduled for [...] disease, unspecified) Monitor exacerbation pattern and consult infertility nurse regarding chronic antibiotic therapy approval. Explore potential for chronic Zyrtec use for congestion relief upon infertility nurse's input. 4. Chronic diastolic heart failure (I50.32: [...] obstruction Card (more content not included)... Normal [facility] Comment on above: Result Comment: Elec tronically Signed By: Pito Patterson MD\.br\Date and Time Signed: 08/25/24 12:44 EST No Panel InformationOrdered By: Malou Wynne on 08-04-2024 [facility] Ambulatory Visit Summaryon 1 09-12-2023 Ambulatory Visit Summary Ambulatory Visit Summary CHIKI JUAREZ Issa :1945 Visit Date:07/13/2024 Ambulatory Visit Instructions Your Diagnosis Sinus complaint BMI 36.0-36.9,adult Exogenous obesity Former smoker Your Care Team Attending Physician - MARKUS CERNA CNP Primary Care Physician - Pito Patterson MD This Is Your Medications List Misc Prescription (Electric scooter) Misc Prescription (Handpham Macias, 5 years.) [facility] Prescription (Nebulizer accessory set) Oxygen (Oxygen - [...] PM EST With: Pito Patterson MD Where: [address] [address]- Thursday 8:00 AM EDT With: Where: [address] [id number]- Thursday 9:45 AM EDT With: MIKE VENTURA, Oni Sewell Where: [facility] [address] [place] [address]- Medications What How Much When Why Instructions [...] Every day Oxygen - patient states his infertility nurse just increased this to 4LPM Unchanged potassium [...] lymphoma Histor (more content not included)... Normal [facility] Medicine Office/Clini c Noteon 07-13-2024 Family [...] day(s), # 6 tab(s), Refills(s) 0, Pharmacy: [facility]/pharmacy #[id number], 168, cm, 07/13/24 10:34:00 EST, Height/Length Dosing, 101.9, kg, 07/13/24 10:34:00 EST, Weight Dosing methylPREDNISolone, = 1 packet(s), Oral, As Directed, as directed on package labeling, X 6 day(s), # 21 tab(s), Refills(s) 0, Pharmacy: [facility]/pharmacy #[id number], 168, cm, 07/13/24 10:34:00 EST, Height/Length [...] No qual (more content not included)... Normal [facility] Comment on above: Result Comment: Elec tronically Signed By: MARKUS CERNA CNP\.otf\Date and Time Signed: 07/13/24 10:55 EST Oswaldo 06-10-2024 RAINA Telephone (HEMASA) -- CHIKI JUAREZ ([id number]) 1945 M Date Time Provider Department 06/10/24 VALERIE MAYES During your visit today, we recorded the following information about you: Valerie Mayes RN 06/10/2024 8:[address] Mayra Berg, [facility] called and spoke with ORESTES yesterday with concerns of PET results: CHEST: * AP window/left hilar mildly avid 0.7 cm lymph node is favored to be reactive, lymphomatous involvement less likely, not entirely excluded. No prior study available for comparison. BRErendira reviewed and will repeat CT Chest in 6 months. Called and spoke with Dr Berg's office and they will update. Call back number provided with any additional needs or concerns. [facility] CT Chest pended for review and sign PSS: Please call to schedule prior to return visit 11/21/24 SANTI Rojas, Shea 06/10/2024 10:55 AM Signed A voicemail was left on Chiki's phone to return our call to schedule a CT for November. Shea Kolb PSS Valerie Mayes RN 06/13/2024 9:36 AM Signed notified and transferred to [facility] to schedule CT as recommended prior [...] lymph nodes [R59.0] Order(s):CT CHEST W IVCON [[id number]] Order #: [id number] FUTURE [] iv contrast (will be provided [...] (more content not included)... Normal [facility] CNOVSPon 06-06-2024 CNOVSP Visit (SP) Office (H EMASA) -- CHIKI JUAREZ ([id number]) 1945 M Date Time Provider Department 06/06/24 [...] Temp 3 (more content not included)... Normal [facility] 06-01-2024 L Specimen: [id number] Received: 06/01/24 Status: GABBY Giron Num: [id number] Spec Type: Surgical Subm Dr: Connor Crawley DO Tissues: A Skin-Other than Cyst, tag, debridement or plastic repair (L CHEEK LESION) B Skin-Other than Cyst, tag, debridement or plastic repair (SCALP LESION) Procedures: HE/8, Gross/Micro L4/2, FS HE/8 Age/ Patient Sex Location Account Attending Physician Chiki Juarez 79/M [place] [id number] Connor Crawley DO SPEC NUM: [id number] RECD: 06/01/24 STATUS: GABBY GIRON NUM: [id number] MARIAN: 06/01/24 [facility] DR: Connor Crawley DO ENTERED: 06/01/24 [facility] DR: SPEC TYPE: Surgical DEPT: S ENTERED BY: [id number] RECV BY: [id number] ORDERED: HE/8, Gross/Micro L4/2, FS HE/8 ORDERED: [...] the correct patient's name and scalp Specimen: [id number] Received: 06/01/24 Status: [facility] Num: [id number] Spec Type: Surgical Subm Dr: Connor Crawley DO Tissues: A Skin-Other than Cyst, tag, debridement or plastic repair (L CHEEK LESION) B Skin-Other than Cyst, tag, debridement or plastic repair (SCALP LESION) Procedures: , Gross/Micro L4/2, FS Patient: Chiki Juarez [id number] (Continued) Specimen: [id number] Received: 06/01/24 (Continued) Gross Description (Continued) Signed (signature on file) Randy Tillman MD 06/03/24 1151 Specimen: [id number] Received: 06/01/24 Status: GABBY Giron Num: [id number] Spec Type: Surgical Subm Dr: Connor Crawley DO Tissues: A Skin-Other than Cyst, tag, debridement or plastic repair (L CHEEK LESION) B Skin-Other than Cyst, tag, debridement or plastic repair (SCALP LESION) Procedures: , Gross/Micro L4/2, FS Patient: Chiki Juarez [id number] (Continued) Specimen: [id number] Received: 06/01/24-0016 (Continued) Gross Description (Continued) lesion and consists [...] Nichols CPT Codes 88 305 x 2 93241 x 2 Specimen: [id number] Received: 06/01/24 Status: GABBY Giron Num: [id number] Spec Type: Surgical Subm Dr: Connor Crawley, Tissues: A Skin-Other than Cyst, tag, debridement or plastic repair (L CHEEK L (more content not included)... Normal [facility] Provider Letteron 06-01-2024 Provider Letter Provider Letter June 01, 2024 CHIKI JUAREZ [address] [place] [id number] : 1945 Dear Kwaku, We have been trying to reach you with no success. It is important that you return our call regarding your mobility scooter upon receiving this letter. Also, at the time of your call, please provide us with your current information. Thank you for your prompt attention to this matter. Sincerely, Family [address] [address] ext [phone] [facility] Ambulatory Visit Summaryon 1 Ambulatory Visit [...] PM EST With: Pito Patterson MD Where: [address] [address]- Thursday 8:00 AM EDT [facility]: [facility] [address] [place] [address]- Thursday 9:45 AM EDT With: MIKE VENTURA, Oni Sewell Where: [facility] [address] [place] [address] [place] [address]- Medications What How Much When Why Instructions [...] questions or concerns Unchanged Misc Prescription (Handicap Placsorin, 5 years.) [...] Every day Oxygen - patient states his infertility nurse just increased this to 4LPM Contact prescribing physician if questions or concerns Unchanged potassium chloride (potassium chl (more content not included)... Normal [facility] Medicine Office/Clini c Noteon 05-17-2024 Family Medicine [...] flu: done @ [facility] 05/12/24 questions/concerns: saw coater recently has at least 2 skin cancers [...] recent assurance of stable condition from the public health doctor. Chronic kidney disease stage 3a is managed [...] 3352F Influ (more content not included)... Normal [facility] Comment on above: Result Comment: Elec tronically Signed By: Navarro VENTURA, Pito Underwood.otf\Date and Time Signed: 05/17/24 11:03 EDT No Panel Informationon 05-03 [facility] Type of biopsy: abernathy ential Informed [...] taken Amount of lidocaine used: 1.0 cc [facility] Type of biopsy: [facility] Charlie[facility] Informed consent: discussed and consent obtained Informed [...] taken Amount of lidocaine used: 1.0 cc [facility] Type of biopsy: abernathy ential Informed consent: [...] taken Amount of lidocaine used: 2.0 cc [facility] GLUCOSE, BLOOD (POC)on 04-29 Glucose [Mass/Vol] 98 mg/dL 74 - 99 mg/dL [facility] Comment on above: Location:[facility], [address] [place] [address] , [place], [place], [facility] The Accu-Chek Inform II glucose meter has [...] blood gas instrument) in the above situations. [facility] CBC W Auto Differential pane l (Bld)on 04-20-2024 Anisocytosis Ql (Bld) Present [facility] Basophils (Bld) [#/Vol] 0.00 10*3/uL [facility] Basophils/100 WBC (Bld) 0.0 % [facility] Differential cell count method Nom (Bld) Manual [facility] Eosinophils (Bld) [#/Vol] 0.00 10*3/uL [facility] Eosinophils/100 WBC (Bld) 0.0 % [facility] Erythrocyte distribution width (RBC) [Ratio] 15.2 % High 11.5 - 15.0 % [facility] Hematocrit (Bld) [Volume fraction] 37.6 % Low 39.0 - 51.0 % [facility] Hemoglobin (Bld) [Mass/Vol] 12.3 g/dL Low 13.0 - 17.0 g/dL [facility] Interpretation and review of laboratory results Abnormal [facility] Lymphocytes (Bld) [#/Vol] 0.75 10*3/uL Low [facility] Lymphocytes/100 WBC (Bld) 17.0 % [facility] MCH (RBC) [Entitic mass] 34.2 pg High 26.0 - 34.0 pg [facility] MCHC (RBC) [Mass/Vol] 32.7 g/dL 30.5 - 36.0 g/dL [facility] MCV (RBC) [Entitic vol] 104.4 fL High 80.0 - 100.0 fL [facility] [place] % 1.0 % [facility] Monocytes (Bld) [#/Vol] 1.73 10*3/uL High NINF [facility] Monocytes/100 WBC (Bld) 39.0 % [facility] Neutrophils (Bld) [#/Vol] 1.91 10*3/uL [facility] Neutrophils/100 WBC (Bld) 43.0 % [facility] Nucleated RBC (Bld) [#/Vol] NINF [facility] Nucleated RBC/100 WBC (Bld) [Ratio] 0.0 % /100 WBC [facility] Ovalocytes LM Ql (Bld) Few [facility] Platelet mean volume (Bld) [Entitic vol] 10.0 fL 9.0 - 12.7 fL [facility] Platelets (Bld) [#/Vol] 136 10*3/uL Low [facility] Platelets Estimate (Bld) [#/Vol] Adequate [facility] Polychromasia LM Ql (Bld) Slight [facility] RBC (Bld) [#/Vol] 3.60 10*6/uL Low 4.20 - 6.0 0 m/uL [facility] Red Cell Morph Reviewed: see result s of individual morphologies [facility] WBC (Bld) [#/Vol] 4.44 10*3/uL [facility] WBC Left Shift Ql (Bld) Present [facility] ANC=1.55 The followi ng results were reported as preliminary values due to instrument flagging. Interpret with caution. Final results may vary.Results requested and read back by: [facility] @1418 ' GAY This is an appended report. These results have been appended to a previously verified report. [facility] Basic metabolic 2000 panelon 04-19-2024 Anion gap [Moles/Vol] 15 mmol/L 8 - 15 mmol/L [facility] Calcium [Mass/Vol] 9.2 mg/dL 8.5 - 10. 2 mg/dL [facility] Comment on above: Corrected result: Pr eviously reported as 9.6 mg/dL on 04/19/2024 at 2:41 PM EDT. Chloride [Moles/Vol] 105 mmol/L 98 - 10 7 mmol/L [facility] CO2 [Moles/Vol] 25 mmol/L 22 - 30 mmol/L [facility] Comment on above: Corrected result: Pr eviously reported as 27 mmol/L on 04/19/2024 at 2:41 PM EDT. Creatinine [Mass/Vol] 1.37 mg/dL High 0.73 - 1.22 mg/dL [facility] Comment on above: Corrected result: Pr eviously reported as 1.36 mg/dL on 04/19/2024 at 2:41 PM EDT. GFR/1.73 sq M.predicted among non-blacks MDRD (S/P/Bld) [Vol rate/Area] 53 mL/min/{1.73_m2} Low - PINF [facility] Comment on above: Estimated Glomerular Filtration [...] 120 mg/dL High 74 - 99 mg/dL [facility] Comment on above: The [place] [employer] (ADA) provides guidance for [...] Standards of Medical Care in Diabetes 2016, [place] [employer]. Diabetes Care. 2016.39(Suppl 1). Corrected result: Previously reported as 126 mg/dL on 04/19/2024 at 2:41 PM EDT. Interpretation and review of laboratory results Abnormal [facility] Potassium [Moles/Vol] 4.4 mmol/L 3.7 - 5.1 mmol/L [facility] Sodium [Moles/Vol] 145 mmol/L High 136 - 144 mmol/L [facility] Urea nitrogen [Mass/Vol] 20 mg/dL 9 - 24 mg/dL [facility] Comment on above: Corrected result: Pr eviously reported as 21 mg/dL on 04/19/2024 at 2:41 PM EDT. [facility] CHEMISTRYOrdered By: SYSTEM SYSTEM on 10-19-2023 Albumin [...] Casandra del toro reviewed by ts . PROF CHEM 8 ([facility])on Anion gap [Moles/Vol] 14.0 mmol/L Normal [facility] Comment on above: Performed By: #### B MP ####[facility] [id number] [place] [address]Dr. Trevor Nichols Calcium [Mass/Vol] 8.8 mg/dL Normal 8.5-10.1 [facility] Comment on above: Performed By: #### B MP ####[facility] [address] [place] [address]Dr. Trevor Nichols Chloride [Moles/Vol] 104 mmol/L Normal 98-107 [facility] Comment on above: Performed By: #### B MP ####[facility] [address] [place] [id number]. Trevor Nichols CO2 [Moles/Vol] 26.0 mmol/L Normal 21.0-32.0 [facility] Comment on above: Performed By: #### B MP ####[facility] [address] [place] [address]Dr. Trevor Nichols Creatinine [Mass/Vol] 1.49 mg/dL Critically high 0.70-1.30 [facility] Comment on above: Performed By: #### B MP ####[facility] [address] [place] [id number]. Vivifrancie Simone EGFR-AF ERITREAN 56 mL/min/1.73m2 Critically low >=60 [facility] Comment on above: Performed By: #### B MP ####[facility] [address] [place] [id number]. Vivifrancie Simone EGFR-NON AF ERITREAN 46 mL/min/1.73m2 Critically low >=60 [facility] Comment on above: Performed By: #### B MP ####[facility] [address] [place] [id number]. Trevor Nichols Glucose [Mass/Vol] 115 mg/dL Critically high 74-106 [facility] Comment on above: Performed By: #### B MP ####[facility] [address] [place] [address]Dr. Trevor Nichols Potassium [Moles/Vol] 4.0 mmol/L Normal 3.5-5.1 [facility] Comment on above: Performed By: #### B MP ####[facility] [address] [place] [address]Dr. Trevor Nichols Sodium [Moles/Vol] 140 mmol/L Normal 136-145 [facility] Comment on above: Performed By: #### B MP ####[facility] [address] [place] [address]Dr. Trevor Nichols Urea nitrogen [Mass/Vol] 22.0 mg/dL Critically high 7.0-18.0 [facility] Comment on above: Performed By: #### B MP ####[facility] [address] [place] [id number]. Trevor Nichols Urea nitrogen/Creatinine [Mass ratio] 14.8 mg/mg Normal [facility] Comment on above: Performed By: #### B MP ####[facility] [address] [place] [id number]. Trevor Nichols NM STRESS/REST MULTIon 04-16 NM STRESS/REST MULTI Patient: JANNETH JUAREZ Exam Date: 04/16/2022 : 1945 Gender:M Ordering : DR DANIELLA EASTON M.D. Admission #: [id number] Family : DR WILL SHERWOOD . Order #: [id number] CLICK HERE TO VIEW EXAM RADIOLOGY REPORT [...] Beatty MD on 04/16/2022 at 10:23 Normal [facility] ECHOCARDIO M/2D COMPLETEon 0 02-19-2022 ECHOCARDIO M/2D COMPLETE Patient: CHIKI JUAREZ Exam Date: 02/19/2022 : 1945 Gender:M Ordering : [employer] Admission #: [id number] Family : DR WILL SHERWOOD . Order #: [id number] CLICK HERE TO VIEW EXAM ECHOCARDIOGRAM REPORT [...] Easton M.D. on 02/19/2022 at 19:53 Normal [facility] LIPID PROFILEon 02-10-2022 CHOL-HDL RATIO NORM SEE BELOW Normal [facility] Comment on above: Result Comment: 3.3 - 4.4 LOW RISK 4.4 - 7.1 AVERAGE RISK 7.1 - 11.0 MODERATE RISK >11.0 HIGH RISK Performed By: #### L IPID #### [facility] [address] [address] [address] Trevor Nichols Cholesterol [Mass/Vol] 171 mg/dL Normal <=200 [facility] Comment on above: Performed By: #### L IPID #### [facility] [address] [address] [address] Trevor Nichols Cholesterol in HDL [Mass/Vol] 40 mg/dL Normal 40-60 [facility] Comment on above: Performed By: #### L IPID #### [facility] [address] [address] [address] Trevor Nichols Cholesterol in LDL [Mass/Vol] 114.0 mg/dL Normal [facility] Comment on above: Performed By: #### L IPID #### [facility] [address] [address] [address] Trevor Nichols Cholesterol.total/Ch olesterol in HDL [Mass ratio] 4.3 {ratio} Normal [facility] Comment on above: Performed By: #### L IPID #### [facility] [address] [address] [address] Trevor Nichols HDL NORMAL > or = 60 mg/dl - LO W CARDIOVASCULAR RISK <40 mg/dl - HIGH CARDIOVASCULAR RISK Normal [facility] Comment on above: Performed By: #### L IPID #### [facility] [address] [address] [address] Trevor Nichols LDL CALC NORMAL SEE BELOW Normal [facility] Comment on above: Result Comment: <100 mg/dl OPTIMAL 100 - 129 mg/dl NEAR OR ABOVE OPTIMAL 130 - 159 mg/dl BORDERLINE HIGH 160 - 189 mg/dl HIGH >190 mg/dl VERY HIGH Performed By: #### L IPID #### [facility] [address] [place] [address] Dr. Trevor Nichols Triglyceride [Mass/Vol] 85 mg/dL Normal <=150 [facility] Comment on above: Performed By: #### L IPID #### [facility] [address] [place] [address] Dr. Trevor Nichols VLDL CALC 17.0 mg/dL Normal [facility] Comment on above: Performed By: #### L IPID #### [facility] [address] [place] [address] Dr. Trevor Nichols BNPon 02-05-2022 Natriuretic peptide B (Bld) [Mass/Vol] 231.0 pg/mL Normal <=900.0 [facility] Comment on above: Performed By: #### H STROPN, BNP, BMP #### [facility] [address] [place] [address] Dr. Trevor Nichols CBC W MANUAL DIFFon 02-06-20 ANISOCYTOSIS 1+ Normal [facility] Comment on above: Performed By: #### C BCMAN #### [facility] [address] [place] [address] Dr. Trevor Nichols ATYPICAL LYMPH # Normal [facility] Comment on above: Performed By: #### C BCMAN #### [facility] [address] [place] [address] Dr. Trevor Nichols ATYPICAL LYMPH % Normal [facility] Comment on above: Performed By: #### C BCMAN #### [facility] [address] [place] [address] Dr. Trevor Nichols BAND # 0.3 103/ul Normal 0.0-0.3 [facility] Comment on above: Performed By: #### C BCMAN #### [facility] [address] [place] [address] Dr. Trevor Nichols BAND % 6 % Critically high 0-5 [facility] Comment on above: Performed By: #### C BCMAN #### [facility] [address] [place] [address] Dr. Trevor Nichols BASOM # 0.00 103/ul Normal 0.00-0.10 [facility] Comment on above: Performed By: #### C JOBY #### [facility] [address] [place] [address] Dr. Trevor Nichols BASOM % 0.0 % Critically low 0.2-2.0 [facility] Comment on above: Performed By: #### C JOBY #### [facility] [address] [place] [address] Dr. Trevor Nichols BLAST # Normal [facility] Comment on above: Performed By: #### C JOBY #### [facility] [address] [place] [address] Dr. Trevor Nichols BLAST % Normal [facility] Comment on above: Performed By: #### C JOBY #### [facility] [address] [place] [address] Dr. Trevor Nichols CORRECTED WBC Normal 4.0-11.0 [facility] Comment on above: Performed By: #### C JOBY #### [facility] [address] [place] [address] Dr. Trevor Ncihols EOS # 0.04 103/ul Normal 0.00-0.70 [facility] Comment on above: Performed By: #### C JOBY #### [facility] [address] [place] [address] Dr. Trevor Nichols EOS% 1.0 % Normal 0.9-7.0 [facility] Comment on above: Performed By: #### C JOBY #### [facility] [address] [place] [address] Dr. Trevor Nichols HCT 36.4 % Critically low 42.0-54.0 [facility] Comment on above: Performed By: #### C JOBY #### [facility] [address] [place] [address] Dr. Trevor Nichols HGB 11.4 g/dl Critically low 14.0-18.0 [facility] Comment on above: Performed By: #### C JOBY #### [facility] [address] [place] [address] Dr. Trevor Nichols HYPOCHROMASIA SLIGHT Normal [facility] Comment on above: Performed By: #### C JOBY #### [facility] [address] [address] [address] Trevor Nichols LYMPHM # 1.19 103/ul Critically low 1.20-3.80 [facility] Comment on above: Performed By: #### C JOBY #### [facility] [address] [address] [address] Trevor Nichols LYMPHM% 27.0 % Normal 20.5-60.0 [facility] Comment on above: Performed By: #### C JOBY #### [facility] [address] [address] [address] Trevor Nichols MCH 32.5 pg Normal 25.9-34.0 [facility] Comment on above: Performed By: #### C JOBY #### [facility] [address] [place] [address] Dr. Trevor Nichols MCHC 31.3 g/dl Normal 29.9-35.2 [facility] Comment on above: Performed By: #### C JOBY #### [facility] [address] [place] [address] Dr. Trevor Nichols MCV 103.7 fL Critically high 80.0-94.0 [facility] Comment on above: Performed By: #### C JOBY #### [facility] [address] [place] [address] Dr. Trevor Nichlos METAMYELOCYTE # Normal [facility] Comment on above: Performed By: #### C JOBY #### [facility] [address] [place] [address] Dr. Trevor Nichols METAMYELOCYTE % Normal [facility] Comment on above: Performed By: #### C JOBY #### [facility] [address] [address] [address] Trevor Nichols MONOM# 1.28 103/ul Critically high 0.30-0.80 [facility] Comment on above: Performed By: #### C JOBY #### [facility] [address] [place] [address] Dr. Trevor Nichols MONOM% 29.0 % Critically high 1.7-12.0 [facility] Comment on above: Performed By: #### C BCNADIA #### [facility] [address] [place] [address] Dr. Trevor Nichols MPV 10.5 fL Normal 9.5-13.5 [facility] Comment on above: Performed By: #### C BCNADIA #### [facility] [address] [place] [address] Dr. Trevor Nichols MYELOCYTE # Normal [facility] Comment on above: Performed By: #### C BCMAN #### [facility] [address] [place] [address] Dr. Trevor Nichols MYELOCYTE % Normal [facility] Comment on above: Performed By: #### C JOBY #### [facility] [address] [place] [address] Dr. Trevor Nichols NRBC Normal [facility] Comment on above: Performed By: #### C JOBY #### [facility] [address] [place] [address] Dr. Trevor Nichols PLT 161 103/ul Normal 150-450 [facility] Comment on above: Performed By: #### C JOBY #### [facility] [address] [place] [address] Dr. Trevor Nichols RBC 3.51 106/ul Critically low 4.70-6.10 [facility] Comment on above: Performed By: #### C JOBY #### [facility] [address] [place] [address] Dr. Trevor Nichols RDW 16.0 % Critically high 11.0-15.0 [facility] Comment on above: Performed By: #### C BCMAN #### [facility] [address] [place] [address] Dr. Trevor Nichols SEG # 1.63 103/ul Normal 1.40-6.50 [facility] Comment on above: Performed By: #### C BCNADIA #### [facility] [address] [place] [address] Dr. Trevor Nichols SEG % 37.0 % Critically low 43.0-75.0 [facility] Comment on above: Performed By: #### C JOBY #### [facility] [address] [address] [address] Trevor Nichols WBC 4.4 103/ul Normal 4.0-11.0 [facility] Comment on above: Performed By: #### C JOBY #### [facility] [address] [address] [address] Trevor Nichols PROF 14(COMP METB)on 022 Albumin [Mass/Vol] 3.4 g/dL Normal 3.4-5.0 [facility] Comment on above: Performed By: #### H STROPN, BNP, BMP #### [facility] [address] [place] [address] Dr. Trevor Nichols Albumin/Globulin [Mass ratio] 0.9 {ratio} Normal [facility] Comment on above: Performed By: #### H STROPN, BNP, BMP #### [facility] [address] [place] [address] Dr. Trevor Nichols ALP [Catalytic activity/Vol] 99 U/L Normal 46-116 [facility] Comment on above: Performed By: #### H STROPN, BNP, BMP #### [facility] [address] [place] [address] Dr. Trevor Nichols ALT [Catalytic activity/Vol] 18 U/L Normal 16-63 [facility] Comment on above: Performed By: #### H STROPN, BNP, BMP #### [facility] [address] [place] [address] Dr. Trevor Nichols Anion gap [Moles/Vol] 13.5 mmol/L Normal [facility] Comment on above: Performed By: #### H STROPN, BNP, BMP #### [facility] [address] [place] [address] Dr. Trevor Nichols AST [Catalytic activity/Vol] 10 U/L Critically low 15-37 [facility] Comment on above: Performed By: #### H STROPN, BNP, BMP #### [facility] [address] [place] [address] Dr. Trevor Nichols Bilirubin [Mass/Vol] 0.5 mg/dL Normal 0.2-1.0 [facility] Comment on above: Performed By: #### H STROPN, BNP, BMP #### [facility] [address] [place] [address] Dr. Trevor Nichols Calcium [Mass/Vol] 8.8 mg/dL Normal 8.5-10.1 [facility] Comment on above: Performed By: #### H STROPN, BNP, BMP #### [facility] [address] [place] [address] Dr. Trevor Nichols Chloride [Moles/Vol] 106 mmol/L Normal 98-107 [facility] Comment on above: Performed By: #### H STROPN, BNP, BMP #### [facility] [address] [place] [address] Dr. Trevor Nichols CO2 [Moles/Vol] 24.3 mmol/L Normal 21.0-32.0 [facility] Comment on above: Performed By: #### H STROPN, BNP, BMP #### [facility] [address] [place] [address] Dr. Trevor Nichols Creatinine [Mass/Vol] 1.35 mg/dL Critically high 0.70-1.30 [facility] Comment on above: Performed By: #### H STROPN, BNP, BMP #### [facility] [address] [place] [address] Dr. Trevor Nihcols EGFR-AF ERITREAN >60 Normal >=60 [facility] Comment on above: Performed By: #### H STROPN, BNP, BMP #### [facility] [address] [place] [address] Dr. Trevor Nichols EGFR-NON AF ERITREAN 52 mL/min/1.73m2 Critically low >=60 [facility] Comment on above: Performed By: #### H STROPN, BNP, BMP #### [facility] [address] [place] [address] Dr. Trevor Nichols Globulin (S) [Mass/Vol] 3.8 g/dL Normal [facility] Comment on above: Performed By: #### H STROPN, BNP, BMP #### [facility] [address] [address] [address] Trevor Nichols Glucose [Mass/Vol] 103 mg/dL Normal 74-106 [facility] Comment on above: Performed By: #### H STROPN, BNP, BMP #### [facility] [address] [address] [address] Trevor Nichols Potassium [Moles/Vol] 3.8 mmol/L Normal 3.5-5.1 [facility] Comment on above: Performed By: #### H STROPN, BNP, BMP #### [facility] [address] [address] [address] Trevor Nichols Protein [Mass/Vol] 7.2 g/dL Normal 6.4-8.2 [facility] Comment on above: Performed By: #### H STROPN, BNP, BMP #### [facility] [address] [place] [address] Dr. Trevor Nichols Sodium [Moles/Vol] 140 mmol/L Normal 136-145 [facility] Comment on above: Performed By: #### H STROPN, BNP, BMP #### [facility] [address] [address] [address] Trevor Nichols Urea nitrogen [Mass/Vol] 22.0 mg/dL Critically high 7.0-18.0 [facility] Comment on above: Performed By: #### H STROPN, BNP, BMP #### [facility] [address] [address] [address] Trevor Nichols Urea nitrogen/Creatinine [Mass ratio] 16.3 mg/mg Normal [facility] Comment on above: Performed By: #### H STROPN, BNP, BMP #### [facility] [address] [place] [address] Dr. Trevor Nichols TSHon 02-05-2022 TSH 3.360 uIU/mL Normal 0.358-3.740 [facility] Comment on above: Performed By: #### H STROPN, BNP, BMP #### [facility] [address] [address] [address] Trevor Nichols XR CHEST 2 Von [...] by: ALLAN FLOREZ Date: 2022-02-05 17:03 Normal [facility] XR BONE SURVEYon 09-25-2021 XR [...] SHAY BERNSTEIN Date: 2021-09-25 07:30 Normal [facility] PROTEIN ELECTROPHERESISon Albumin [Mass/Vol] 3.2 g/dL Normal 2.9-4.4 [facility] Comment on above: Performed By: #### P RTELEC ####[facility] [address] [place] [address]Dr. Trevor Nichols Albumin/Globulin [Mass ratio] 1.1 {ratio} Normal 0.7-1.7 [facility] Comment on above: Performed By: #### P RTELEC ####[facility] [address] [place], [place] [address]Dr. Vivilan Nichols Fgmnq-1-Honpwavz 0.3 g/dL Normal 0.0-0.4 [facility] Comment on above: Performed By: #### P RTELEC ####[facility] [address] [place], [place] [address]Dr. Vivilan Nichols Mwgsv-9-Btrllzyj 0.8 g/dL Normal 0.4-1.0 [facility] Comment on above: Performed By: #### P RTELEC ####[facility] [address] [place], [place] [address]Dr. Vivilan Nichols Beta Globulin 1.0 g/dL Normal 0.7-1.3 [facility] Comment on above: Performed By: #### P RTELEC ####[facility] [address] [place] [address]Dr. Vivilan Nichols Gamma Globulin 0.8 g/dL Normal 0.4-1.8 [facility] Comment on above: Performed By: #### P RTELEC ####[facility] [address] [place], [place] [address]Dr. Vivilan Nichols Globulin (S) [Mass/Vol] 2.9 g/dL Normal 2.2-3.9 [facility] Comment on above: Performed By: #### P RTELEC ####[facility] [address] [place] [address]Dr. Trevor Nichols M-Jorge 0.1 g/dL Critically high Not Observed [facility] Comment on above: Performed By: #### P RTELEC ####[facility] [address] [place] [address]Dr. Trevor Nichols PDF . Normal [facility] Comment on above: Performed By: #### P RTELEC ####[facility] [address] [place] [address]Dr. Trevor Nichols Please note: Comment Normal [facility] Comment on above: Result Comment: Prot ein electrophoresis scan will follow via computer, mail, or wastewater design engineer delivery. Performed By: #### P RTELEC ####[facility] [address] [place] [address]DrJeffery Nichols Protein [Mass/Vol] 6.1 g/dL Normal 6.0-8.5 [facility] Comment on above: Performed By: #### P RTELEC ####[facility] [address] [place] [address]Dr. Trevor Nichols PROF CHEM 8 (BAS METB)on Anion gap [Moles/Vol] 16.3 mmol/L Normal [facility] Comment on above: Performed By: #### H STROPN, BNP, BMP #### [facility] [address] [place] [address] Dr. Trevor Nichols Calcium [Mass/Vol] 9.1 mg/dL Normal 8.4-10.2 [facility] Comment on above: Performed By: #### H STROPN, BNP, BMP #### [facility] [address] [address] [address] Trevor Nichols Chloride [Moles/Vol] 104 mmol/L Normal 98-107 [facility] Comment on above: Performed By: #### H STROPN, BNP, BMP #### [facility] [address] [address] [address] Trevor Nichols CO2 [Moles/Vol] 23.3 mmol/L Normal 22.0-30.0 [facility] Comment on above: Performed By: #### H STROPN, BNP, BMP #### [facility] [address] [address] [address] Trevor Nichols Creatinine [Mass/Vol] 1.28 mg/dL Critically high 0.66-1.25 [facility] Comment on above: Performed By: #### H STROPN, BNP, BMP #### [facility] [address] [address] [address] Trevor Nichols EGFR-AF ERITREAN >60 Normal >=60 [facility] Comment on above: Performed By: #### H STROPN, BNP, BMP #### [facility] [address] [address] [address] Trevor Nichols EGFR-NON AF ERITREAN 55 mL/min/1.73m2 Critically low >=60 [facility] Comment on above: Performed By: #### H STROPN, BNP, BMP #### [facility] [address] [address] [address] Trevor Nichols Glucose [Mass/Vol] 98 mg/dL Normal 74-106 [facility] Comment on above: Performed By: #### H STROPN, BNP, BMP #### [facility] [address] [address] [address] Trevor Nichols Potassium [Moles/Vol] 3.6 mmol/L Normal 3.4-5.0 [facility] Comment on above: Performed By: #### H STROPN, BNP, BMP #### [facility] [address] [address] [address] Trevor Nichols Sodium [Moles/Vol] 140 mmol/L Normal 137-145 [facility] Comment on above: Performed By: #### H STROPN, BNP, BMP #### [facility] [address] [address] [address] Trevor Nichols Urea nitrogen [Mass/Vol] 25.0 mg/dL Critically high 9.0-20.0 [facility] Comment on above: Performed By: #### H STROPN, BNP, BMP #### [facility] [address] [address] [address] Trevor Nichols Urea nitrogen/Creatinine [Mass ratio] 19.5 mg/mg Normal [facility] Comment on above: Performed By: #### H MIRANDA GASPAR, BMP #### [facility] [address] [place], [place] [address] Dr. Trevor Nichols XR MODIFIED BARIUM SWALLOWon [...] SHAY BERNSTEIN Date: 2021-09-05 10:40 Normal [facility] CULTURE SPUTUMon 08-01-2021 CULTURE SPUTUM Isolate 1 [...] Trimethoprim/Sulfamethoxaz ole <=20 S F Normal [facility] Comment on above: Performed By: #### H MIRANDA GASPAR, BMP #### [facility] [address] [place], [place] [address] Dr. Trevor Nichols SPUTUM GRAM STAINon 07-30-20 21 COMMENTS Normal [facility] Comment on above: Performed By: #### S PUTGS ####[facility] [address] [place] [address]Dr. Trevor Nichols DIPHTHEROIDS Normal [facility] Comment on above: Performed By: #### S PUTGS ####[facility] [address] [place] [address]Dr. Trevor Nichols EPITHELIALS >25 Normal [facility] Comment on above: Performed By: #### S PUTGS ####[facility] [address] [place] [address]Dr. Trevor Nichols FUNGAL ELEMENTS Normal [facility] Comment on above: Performed By: #### S PUTGS ####[facility] I[address]izbv[address] [place], [place] [address]Dr. Trevor Nichols GRAM NEG BACILLI RARE Normal [facility] Comment on above: Performed By: #### S PUTGS ####[facility] Ltnns[address] [place], [place] [address]Dr. Trevor Nichols GRAM NEG DIPPLOCOCCI Normal [facility] Comment on above: Performed By: #### S PUTGS ####[facility] Mrnsfeeosc[address] [place], [place] [address]Dr. Trevor Nichols GRAM POS BACILLI MANY Normal [facility] Comment on above: Performed By: #### S PUTGS ####[facility] Yxonhrcztv[address] [place], [place] [address]Dr. Trevor Nichols GRAM POSITIVE COCCI MANY Normal [facility] Comment on above: Performed By: #### S PUTGS ####[facility] Eqisnimsji[address] [place], [place] [address]Dr. Trevor Nichols WBC (Bld) [#/Vol] 10*3/uL Normal [facility] Comment on above: Performed By: #### S PUTGS ####[facility] Afbcprkxlr[address] [place], [place] [address]Dr. Trevor Nichols ECHOCARDIO M/2D COMPLETEon 1 09-24-2020 ECHOCARDIO M/2D COMPLETE Patient: CHIKI JUAREZ Exam Date: 07/24/2021 : 1945 Gender:M Ordering : [employer] Admission #: [id number] Family : DR SOLIS Lety SHERWOOD . Order #: [id number] CLICK HERE TO VIEW EXAM ECHOCARDIOGRAM REPORT [...] [place]on M.D. on 07/24/2021 at 20:08 Normal [facility] CBC W MANUAL DIFFon 10-22-20 21 ATYPICAL LYMPH # Normal [facility] Comment on above: Performed By: #### H STROPN, BNP, BMP #### [facility] [address] [address] [address] Trevor Nichols ATYPICAL LYMPH % Normal [facility] Comment on above: Performed By: #### H STROPN, BNP, BMP #### [facility] [address] [address] [address] Trevor Nichols BAND # 0.1 103/ul Normal 0.0-0.3 [facility] Comment on above: Performed By: #### H STROPN, BNP, BMP #### [facility] [address] [place] [address] Dr. Trevor Nichols BAND % 2 % Normal 0-5 [facility] Comment on above: Performed By: #### H STROPN, BNP, BMP #### [facility] [address] [place] [address] Dr. Trevor Nichols BASOM # 0.00 103/ul Normal 0.00-0.10 [facility] Comment on above: Performed By: #### H STROPN, BNP, BMP #### [facility] [address] [place] [address] Dr. Trevor Nichols BASOM % 0.0 % Critically low 0.2-2.0 [facility] Comment on above: Performed By: #### H STROPN, BNP, BMP #### [facility] [address] [place] [address] Dr. Trevor Nichols BLAST # Normal [facility] Comment on above: Performed By: #### H STROPN, BNP, BMP #### [facility] [address] [place] [address] Dr. Trevor Nichols BLAST % Normal [facility] Comment on above: Performed By: #### H STROPN, BNP, BMP #### [facility] [address] [place] [address] Dr. Trevor Nichols CORRECTED WBC Normal 4.0-11.0 [facility] Comment on above: Performed By: #### H STROPN, BNP, BMP #### [facility] [address] [place] [address] Dr. Trevor Nichols EOS # 0.06 103/ul Normal 0.00-0.70 [facility] Comment on above: Performed By: #### H STROPN, BNP, BMP #### [facility] [address] [place] [address] Dr. Trevor Nichols EOS% 1.0 % Normal 0.9-7.0 [facility] Comment on above: Performed By: #### H STROPN, BNP, BMP #### [facility] [address] [place] [address] Dr. Trevor Nichols HCT 31.6 % Critically low 42.0-54.0 [facility] Comment on above: Performed By: #### H STROPN, BNP, BMP #### [facility] [address] [place] [address] Dr. Trevor Nichols HGB 9.7 g/dl Critically low 14.0-18.0 [facility] Comment on above: Performed By: #### H STROPN, BNP, BMP #### [facility] [address] [place] [address] Dr. Trevor Nichols LYMPHM # 0.46 103/ul Critically low 1.20-3.80 [facility] Comment on above: Performed By: #### H STROPN, BNP, BMP #### [facility] [address] [place] [address] Dr. Trevor Nichols LYMPHM% 8.0 % Critically low 20.5-60.0 [facility] Comment on above: Performed By: #### H STROPN, BNP, BMP #### [facility] [address] [place] [address] Dr. Trevor Nichols MACROCYTOSIS 1+ Normal [facility] Comment on above: Performed By: #### H STROPN, BNP, BMP #### [facility] [address] [place] [address] Dr. Trevor Nichols MCH 33.6 pg Normal 25.9-34.0 [facility] Comment on above: Performed By: #### H STROPN, BNP, BMP #### [facility] [address] [place] [address] Dr. Trevor Nichols MCHC 30.7 g/dl Normal 29.9-35.2 [facility] Comment on above: Performed By: #### H STROPN, BNP, BMP #### [facility] [address] [address] [address] Trevor Nichols MCV 109.3 fL Critically high 80.0-94.0 [facility] Comment on above: Performed By: #### H STROPN, BNP, BMP #### [facility] [address] [address] [address] Trevor Nichols METAMYELOCYTE # 0.1 103/ul Normal [facility] Comment on above: Performed By: #### H STROPN, BNP, BMP #### [facility] [address] [address] [address] Trevor Nichols METAMYELOCYTE % 2 % Normal [facility] Comment on above: Performed By: #### H STROPN, BNP, BMP #### [facility] [address] [address] [address] Trevor Nichols MONOM# 2.22 103/ul Critically high 0.30-0.80 [facility] Comment on above: Performed By: #### H STROPN, BNP, BMP #### [facility] [address] [address] [address] Trevor Nichols MONOM% 39.0 % Critically high 1.7-12.0 [facility] Comment on above: Performed By: #### H STROPN, BNP, BMP #### [facility] [address] [address] [address] Trevor Nichols MPV 9.4 fL Critically low 9.5-13.5 [facility] Comment on above: Performed By: #### H STROPN, BNP, BMP #### [facility] [address] [address] [address] Trevor Nichols MYELOCYTE # 0.3 103/ul Normal [facility] Comment on above: Performed By: #### H STROPN, BNP, BMP #### [facility] [address] [address] [address] Trevor Nichols MYELOCYTE % 6 % Normal [facility] Comment on above: Performed By: #### H STROPN, BNP, BMP #### [facility] [address] [address] [address] Trevor Nichols [facility] Normal [facility] Comment on above: Performed By: #### H STROPN, BNP, BMP #### [facility] [address] [address] [address] Trevor Nichols PLT 202 103/ul Normal 150-450 [facility] Comment on above: Performed By: #### H STROPN, BNP, BMP #### [facility] [address] [address] [address] Trevor Nichols RBC 2.89 106/ul Critically low 4.70-6.10 [facility] Comment on above: Performed By: #### H STROPN, BNP, BMP #### [facility] [address] [place] [address] Dr. Trevor Nichols RDW 15.4 % Critically high 11.0-15.0 [facility] Comment on above: Performed By: #### H STROPN, BNP, BMP #### [facility] [address] [place] [address] Dr. Trevor Nichols SEG # 2.39 103/ul Normal 1.40-6.50 [facility] Comment on above: Performed By: #### H STROPN, BNP, BMP #### [facility] [address] [place] [address] Dr. Trevor Nichols SEG % 42.0 % Critically low 43.0-75.0 [facility] Comment on above: Performed By: #### H STROPN, BNP, BMP #### [facility] [address] [address] [address] Trevor Nichols WBC 5.7 103/ul Normal 4.0-11.0 [facility] Comment on above: Performed By: #### H STROPN, BNP, BMP #### [facility] [address] [address] [address] Trevor Nichols PROF CHEM 8 (BAS METB)on Anion gap [Moles/Vol] 13.1 mmol/L Normal [facility] Comment on above: Performed By: #### B MP ####[facility] [address] [address]Dr. Trevor Nichols Calcium [Mass/Vol] 8.8 mg/dL Normal 8.4-10.2 [facility] Comment on above: Performed By: #### B MP ####[facility] [address] [address]Dr. Trevor Nichols Chloride [Moles/Vol] 104 mmol/L Normal 98-107 [facility] Comment on above: Performed By: #### B MP ####[facility] [address] [address]Dr. Trevor Nichols CO2 [Moles/Vol] 24.1 mmol/L Normal 22.0-30.0 [facility] Comment on above: Performed By: #### B MP ####[facility] E[address]zmz[address] [place], [place] [address]Dr. Trevor Nichols Creatinine [Mass/Vol] 1.26 mg/dL Critically high 0.66-1.25 [facility] Comment on above: Performed By: #### B MP ####[facility] [address]qwps[address] [place], [place] [address]Dr. Trevor Nichols EGFR-AF ERITREAN >60 Normal >=60 [facility] Comment on above: Performed By: #### B MP ####[facility] E[address]okpetg[address] [place], [place] [address]Dr. Trevor Nichols EGFR-NON AF ERITREAN 56 mL/min/1.73m2 Critically low >=60 [facility] Comment on above: Performed By: #### B MP ####[facility] Sy[address]ky[address]qlvk[address] [place], [place] [address]Dr. Trevor Nichols Glucose [Mass/Vol] 98 mg/dL Normal 74-106 [facility] Comment on above: Performed By: #### B MP ####[facility] [address] [place], [place] [address]Dr. Vivifrancie Nichols Potassium [Moles/Vol] 4.2 mmol/L Normal 3.4-5.0 [facility] Comment on above: Performed By: #### B MP ####[facility] [address] [address]Dr. Trevor Nichols Sodium [Moles/Vol] 137 mmol/L Normal 137-145 [facility] Comment on above: Performed By: #### B MP ####[facility] Vcvmuqtvty[address] [place], [place] [address]Dr. Trevor Nichols Urea nitrogen [Mass/Vol] 20.0 mg/dL Normal 9.0-20.0 [facility] Comment on above: Performed By: #### B MP ####[facility] Hssijvkrci[address] [place], [place] [address]Dr. Trevor Simone Urea nitrogen/Creatinine [Mass ratio] 15.9 mg/mg Normal [facility] Comment on above: Performed By: #### B MP ####[facility] R[address]ubs[address]bi[address] [place], [place] [address]Dr. Trevor Simone CBC AUTO DIFFon 05-16-2021 BASO # 0.0 103/ul Normal 0.0-0.1 [facility] Comment on above: Performed By: #### C BC ####[facility] [address] [place], [place] [address]Dr. Trevor Simone Basophils/100 WBC (Bld) 0.2 % Normal 0.2-2.0 [facility] Comment on above: Performed By: #### C BC ####[facility] L[address]xktgunh[address] [place], [place] [address]Dr. Trevor Simone EO # 0.0 103/ul Normal 0.0-0.7 [facility] Comment on above: Performed By: #### C BC ####[facility] Txpfbunrks[address] [place], [place] [address]Dr. Vivifrancie Nichols Eosinophils/100 WBC (Bld) 0.0 % Critically low 0.9-7.0 [facility] Comment on above: Performed By: #### C BC ####[facility] [address]bgsobquwo[address] [place], [place] [address]Dr. Vivifrancie Simone Erythrocyte distribution width (RBC) [Ratio] 15.1 % Critically high 11.0-15.0 [facility] Comment on above: Performed By: #### C BC ####[facility] [address] [address]DrJeffery Nichols Hematocrit (Bld) [Volume fraction] 32.9 % Critically low 42.0-54.0 [facility] Comment on above: Performed By: #### C BC ####[facility] [address]prqyvtix[address] [place], [place] [address]DrJeffery Nichols Hemoglobin (Bld) [Mass/Vol] 10.5 g/dL Critically low 14.0-18.0 [facility] Comment on above: Performed By: #### C BC ####[facility] Bjvbkyzvpz[address] [place], [place] [address]DrJeffrey Nichols IG # 0.29 10e3/ul Critically high 0.00-0.03 [facility] Comment on above: Performed By: #### C BC ####[facility] W[address]vllpacvo[address] [place], [place] [address]DrJeffery Nichols IG % 6.5 % Critically high 0.0-0.5 [facility] Comment on above: Performed By: #### C BC ####[facility] Oj[address]fb[address] [place], [place] [address]DrJeffery Nichols LYMPH # 0.2 103/ul Critically low 1.2-3.8 [facility] Comment on above: Performed By: #### C BC ####[facility] Hijcyaijyo[address] [place], [place] [address]DrJeffery Nichols Lymphocytes/100 WBC (Bld) 5.4 % Critically low 20.5-60.0 [facility] Comment on above: Performed By: #### C BC ####[facility] O[address]rs[address] [place], [place] [address]DrJeffery Ncihols MANUAL DIFF REQ NO Normal [facility] Comment on above: Performed By: #### C BC ####[facility] R[address]xt[address] [place], [place] [address]DrJeffery Nichols MCH (RBC) [Entitic mass] 33.8 pg Normal 25.9-34.0 [facility] Comment on above: Performed By: #### C BC ####[facility] [address] [address]Dr. Trevor Nichols MCHC (RBC) [Mass/Vol] 31.9 g/dL Normal 29.9-35.2 [facility] Comment on above: Performed By: #### C BC ####[facility] [address] [address]Dr. Trevor Nichols MCV (RBC) [Entitic vol] 105.8 fL Critically high 80.0-94.0 [facility] Comment on above: Performed By: #### C BC ####[facility] [address]zt[address] [place], [place] [address]DrJeffery Nichols MONO # 0.3 103/ul Normal 0.3-0.8 [facility] Comment on above: Performed By: #### C BC ####[facility] Wureywgomj[address] [place], [place] [address]Dr. Trevor Nichols Monocytes/100 WBC (Bld) 7.6 % Normal 1.7-12.0 [facility] Comment on above: Performed By: #### C BC ####[facility] [address]sh[address] [place], [place] [address]Dr. Trevor Nichols NEUT # 3.6 103/ul Normal 1.4-6.5 [facility] Comment on above: Performed By: #### C BC ####[facility] [address]fe[address] [place], [place] [address]Dr. Trevor Nichols Neutrophils/100 WBC (Bld) 80.3 % Critically high 43.0-75.0 [facility] Comment on above: Performed By: #### C BC ####[facility] Kinookrpsp[address] [place], [place] [address]DrJeffery Nichols Platelet mean volume (Bld) [Entitic vol] 10.2 fL Normal 9.5-13.5 [facility] Comment on above: Performed By: #### C BC ####[facility] [address]mvqeg[address] [place], [place] [address]Dr. Trevor Nichols PLT 192 103/ul Normal 150-450 [facility] Comment on above: Performed By: #### C BC ####[facility] [address] [place], [place] [address]BrJeffery Nichols RBC 3.11 106/ul Critically low 4.70-6.10 [facility] Comment on above: Performed By: #### C BC ####[facility] [address] [place], [place] [address]StJeffery Nichols WBC 4.5 103/ul Normal 4.0-11.0 [facility] Comment on above: Performed By: #### C BC ####[facility] [address] [place], [place] [address]. [address] STROKE HEAD WOon 05-16-20 [...] SHAY BERNSTEIN Date: 2021-05-16 14:45 Normal [facility] CTA NECK WO W CONon 05-16-20 21 [...] SHAY BERNSTEIN Date: 2021-05-16 16:53 Normal [facility] IRON AND TIBCon 05-16-2021 % SATURATION 16.2 % Normal [facility] Comment on above: Performed By: #### F ETIBC, B12FOL #### [facility] [address] [address] [address] Trevor Nichols Iron [Mass/Vol] 32.0 ug/dL Critically low 49.0-181.0 [facility] Comment on above: Performed By: #### F ETIBC, B12FOL #### [facility] [address] [address] [address] Trevor Nichols TIBC DIRECT 198.0 ug/dL Critically low 261.0-497.0 [facility] Comment on above: Performed By: #### F ETIBC, B12FOL #### [facility] [address] [address] [address] Trevro Nichols PROF CHEM 8 (BAS METB)on Anion gap [Moles/Vol] 14.9 mmol/L Normal [facility] Comment on above: Performed By: #### B MP #### [facility] [address] [address] [address] Trevor Nichols Calcium [Mass/Vol] 9.2 mg/dL Normal 8.4-10.2 [facility] Comment on above: Performed By: #### B MP #### [facility] [address] [place] [address] Dr. Trevor Nichols Chloride [Moles/Vol] 105 mmol/L Normal 98-107 [facility] Comment on above: Performed By: #### B MP #### [facility] [address] [address] [address] Trevor Nichols CO2 [Moles/Vol] 21.6 mmol/L Critically low 22.0-30.0 [facility] Comment on above: Performed By: #### B MP #### [facility] [address] [address] [address] Trevor Nichols Creatinine [Mass/Vol] 1.36 mg/dL Critically high 0.66-1.25 [facility] Comment on above: Performed By: #### B MP #### [facility] [address] [address] [address] Trevor Nichols EGFR-AF ERITREAN >60 Normal >=60 [facility] Comment on above: Performed By: #### B MP #### [facility] [address] [address] [address] Trevor Nichols EGFR-NON AF ERITREAN 51 mL/min/1.73m2 Critically low >=60 [facility] Comment on above: Performed By: #### B MP #### [facility] [address] [address] [address] Trevor Nichols Glucose [Mass/Vol] 206 mg/dL Critically high 74-106 [facility] Comment on above: Performed By: #### B MP #### [facility] [address] [address] [address] Trevor Nichols Potassium [Moles/Vol] 4.5 mmol/L Normal 3.4-5.0 [facility] Comment on above: Performed By: #### B MP #### [facility] [address] [address] [address] Trevor Nichols Sodium [Moles/Vol] 137 mmol/L Normal 137-145 [facility] Comment on above: Performed By: #### B MP #### [facility] [address] [place] [address] Dr. Trevor Nichols Urea nitrogen [Mass/Vol] 26.0 mg/dL Critically high 9.0-20.0 [facility] Comment on above: Performed By: #### B MP #### [facility] [address] [place] [address] Dr. Trevor Nichols Urea nitrogen/Creatinine [Mass ratio] 19.1 mg/mg Normal [facility] Comment on above: Performed By: #### B MP #### [facility] [address] [place] [address] Dr. Trevor Nichols VIT B12 AND FOLATEon Cobalamin (Vitamin B12) [Mass/Vol] pg/mL Critically high 239.0-931.0 [facility] Comment on above: Performed By: #### F ETIBC, B12FOL #### [facility] [address] [place] [address] Dr. Trevor Nichols FOLATE 15.40 ng/mL Normal >=2.76 [facility] Comment on above: Performed By: #### F ETIBC, B12FOL #### [facility] [address] [place] [address] Dr. Trevor Nichols BNPon 05-15-2021 Natriuretic peptide B (Bld) [Mass/Vol] 379.0 pg/mL Normal <=900.0 [facility] Comment on above: Performed By: #### H STROPN, BNP, BMP #### [facility] [address] [place], [place] [address] Dr. Trevor Nichols CBC W MANUAL DIFFon 05-15-20 21 ATYPICAL LYMPH # Normal [facility] Comment on above: Performed By: #### H STROPN, BNP, BMP #### [facility] [address] [place] [address] Dr. Trevor Nichols ATYPICAL LYMPH % Normal [facility] Comment on above: Performed By: #### H STROPN, BNP, BMP #### [facility] [address] [place] [address] Dr. Trevor Nichols BAND # 0.0 103/ul Normal 0.0-0.3 [facility] Comment on above: Performed By: #### H STROPN, BNP, BMP #### [facility] [address] [place] [address] Dr. Trevor Nichols BAND % 1 % Normal 0-5 [facility] Comment on above: Performed By: #### H STROPN, BNP, BMP #### [facility] [address] [place] [address] Dr. Trevor Nichols BASOM # 0.00 103/ul Normal 0.00-0.10 [facility] Comment on above: Performed By: #### H STROPN, BNP, BMP #### [facility] [address] [place] [address] Dr. Trevor Nichols BASOM % 0.0 % Critically low 0.2-2.0 [facility] Comment on above: Performed By: #### H STROPN, BNP, BMP #### [facility] [address] [place] [address] Dr. Trevor Nichols BLAST # Normal [facility] Comment on above: Performed By: #### H STROPN, BNP, BMP #### [facility] [address] [place] [address] Dr. Trevor Nichols BLAST % Normal [facility] Comment on above: Performed By: #### H STROPN, BNP, BMP #### [facility] [address] [place] [address] Dr. Trevor Nichols BRENDA CELLS SLIGHT Normal [facility] Comment on above: Performed By: #### H STROPN, BNP, BMP #### [facility] [address] [address] [address] Trevor Nichols CORRECTED WBC Normal 4.0-11.0 [facility] Comment on above: Performed By: #### H STROPN, BNP, BMP #### [facility] [address] [address] [address] Trevor Nichols EOS # 0.05 103/ul Normal 0.00-0.70 [facility] Comment on above: Performed By: #### H STROPN, BNP, BMP #### [facility] [address] [address] [address] Trevor Nichols EOS% 1.0 % Normal 0.9-7.0 [facility] Comment on above: Performed By: #### H STROPN, BNP, BMP #### [facility] [address] [place] [address] Dr. Trevor Nichols HCT 32.5 % Critically low 42.0-54.0 [facility] Comment on above: Performed By: #### H STROPN, BNP, BMP #### [facility] [address] [place] [address] Dr. Trevor Nichols HGB 10.5 g/dl Critically low 14.0-18.0 [facility] Comment on above: Performed By: #### H STROPN, BNP, BMP #### [facility] [address] [place] [address] Dr. Trevor Nichols HYPOCHROMASIA 2+ Normal [facility] Comment on above: Performed By: #### H STROPN, BNP, BMP #### [facility] [address] [address] [address] Trevor Nichols LYMPHM # 1.03 103/ul Critically low 1.20-3.80 [facility] Comment on above: Performed By: #### H STROPN, BNP, BMP #### [facility] [address] [place] [address] Dr. Trevor Nichols LYMPHM% 22.0 % Normal 20.5-60.0 [facility] Comment on above: Performed By: #### H STROPN, BNP, BMP #### [facility] [address] [address] [address] Trevor Nichols MACROCYTOSIS 2+ Normal [facility] Comment on above: Performed By: #### H STROPN, BNP, BMP #### [facility] [address] [address] [address] Trevor Nichols MCH 34.5 pg Critically high 25.9-34.0 [facility] Comment on above: Performed By: #### H STROPN, BNP, BMP #### [facility] [address] [address] [address] Trevor Nichols MCHC 32.3 g/dl Normal 29.9-35.2 [facility] Comment on above: Performed By: #### H STROPN, BNP, BMP #### [facility] [address] [place] [address] Dr. Trevor Nichols MCV 106.9 fL Critically high 80.0-94.0 [facility] Comment on above: Performed By: #### H STROPN, BNP, BMP #### [facility] [address] [place] [address] Dr. Trevor Nichols METAMYELOCYTE # Normal [facility] Comment on above: Performed By: #### H STROPN, BNP, BMP #### [facility] [address] [place] [address] Dr. Trevor Nichols METAMYELOCYTE % Normal [facility] Comment on above: Performed By: #### H STROPN, BNP, BMP #### [facility] [address] [address] [address] Trevor Nichols MONOM# 1.74 103/ul Critically high 0.30-0.80 [facility] Comment on above: Performed By: #### H STROPN, BNP, BMP #### [facility] [address] [address] [address] Trevor Nichols MONOM% 37.0 % Critically high 1.7-12.0 [facility] Comment on above: Performed By: #### H STROPN, BNP, BMP #### [facility] [address] [place] [address] Dr. Trevor Nichols MPV 10.8 fL Normal 9.5-13.5 [facility] Comment on above: Performed By: #### H STROPN, BNP, BMP #### [facility] [address] [address] [address] Trevor Nichols MYELOCYTE # Normal [facility] Comment on above: Performed By: #### H STROPN, BNP, BMP #### [facility] [address] [address] [address] Trevor Nichols MYELOCYTE % Normal [facility] Comment on above: Performed By: #### H STROPN, BNP, BMP #### [facility] [address] [address] [address] Trevor Nichols NRBC Normal [facility] Comment on above: Performed By: #### H STROPN, BNP, BMP #### [facility] [address] [place] [address] Dr. Trevor Nichols PLT 222 103/ul Normal 150-450 [facility] Comment on above: Performed By: #### H STROPN, BNP, BMP #### [facility] [address] [place] [address] Dr. Trevor Nichols POIKILOCYTOSIS 2+ Normal [facility] Comment on above: Performed By: #### H STROPN, BNP, BMP #### [facility] [address] [place] [address] Dr. Trevor Nichols RBC 3.04 106/ul Critically low 4.70-6.10 [facility] Comment on above: Performed By: #### H STROPN, BNP, BMP #### [facility] [address] [place] [address] Dr. Trevor Nichols RDW 15.6 % Critically high 11.0-15.0 [facility] Comment on above: Performed By: #### H STROPN, BNP, BMP #### [facility] [address] [place] [address] Dr. Trevor Nichols SEG # 1.83 103/ul Normal 1.40-6.50 [facility] Comment on above: Performed By: #### H STROPN, BNP, BMP #### [facility] [address] [address] [address] Trevor Nichols SEG % 39.0 % Critically low 43.0-75.0 [facility] Comment on above: Performed By: #### H STROPN, BNP, BMP #### [facility] [address] [address] [address] Trevor Nichols TARGET CELLS 1+ Normal [facility] Comment on above: Performed By: #### H STROPN, BNP, BMP #### [facility] [address] [address] [address] Trevor Nichols TEAR DROP CELLS SLIGHT Normal [facility] Comment on above: Performed By: #### H STROPN, BNP, BMP #### [facility] [address] [address] [address] Trevor Nichols WBC 4.7 103/ul Normal 4.0-11.0 [facility] Comment on above: Performed By: #### H STROPN, BNP, BMP #### [facility] [address] [place] [address] Dr. Trevor Nichols CTA CHEST WO W CONon -29-2 021 CTA CHEST WO W CON EXAMINATION: [...] RAY SAWANT Date: 2021-05-15 11:15 Normal [facility] CULTURE BLOODon 05-15-2021 Microscopic examination of blood, culture Culture Observations: No growth at 5 days. Normal [facility] Comment on above: Performed By: #### H HERMINIOPN, BNP, BMP #### [facility] [address] [address] [address] Trevor Nichols Covid-19 PCR (CVDTB)on 04-18 SARS-CoV-2 (COVID-19) RNA DEVIN+probe Ql (Unsp spec) Not detected Normal NOT DETECTED [facility] Comment on above: Result Comment: When diagnostic testing is negative, the possibility of a false negative should be considered in the context of a patient's recent exposures and the presence of clinical signs and symptoms consistent with SARS-CoV-2. This test is not yet approved or cleared by the [place] Food and Drug Administration (FDA). This test was developed by [employer], [place], [place]. The performance characteristics of this test were validated by [facility]. The results are not intended to be used as the sole means for clinical diagnosis or patient management decisions. [facility] is authorized under Clinical Laboratory Improvement Amendments (CLIA) to perform high- complexity testing. Performed By: #### H HERMINIOPN, BNP, BMP #### [facility] [address] [address] [address] Trevor Nichols FREE T3on 05-15-2021 FREE T3 1.66 pg/mlL Critically low 2.77-5.27 [facility] Comment on above: Performed By: #### T SH, FT3 ####[facility] [address] [place], [place] [address]NtDr. Trevor Nichols FREE T4on 05-15-2021 Free T4 [Mass/Vol] 1.06 ng/dL Normal 0.78-2.19 [facility] Comment on above: Performed By: #### F T4 ####[facility] [address] [address]Dr. Trevor Nichols LACTATE/LACTIC ACIDon 2020 Lactate [Moles/Vol] 1.2 mmol/L Normal 0.7-2.0 [facility] Comment on above: Performed By: #### L ACT ####[facility] [address] [address]Dr. Trevor Nichols Lactate [Moles/Vol] 1.5 mmol/L Normal 0.7-2.0 [facility] Comment on above: Performed By: #### L ACT ####[facility] [address] [address]Dr. Trevor Nichols PROF CHEM 8 (BAS METB)on Anion gap [Moles/Vol] 12.5 mmol/L Normal [facility] Comment on above: Performed By: #### H STROPN, BNP, BMP #### [facility] [address] [address] [address] Trevor Nichols Calcium [Mass/Vol] 8.4 mg/dL Normal 8.4-10.2 [facility] Comment on above: Performed By: #### H STROPN, BNP, BMP #### [facility] [address] [address] [address] Trevor Nichols Chloride [Moles/Vol] 106 mmol/L Normal 98-107 [facility] Comment on above: Performed By: #### H STROPN, BNP, BMP #### [facility] [address] [address] [address] Trevor Nichols CO2 [Moles/Vol] 24.8 mmol/L Normal 22.0-30.0 [facility] Comment on above: Performed By: #### H STROPN, BNP, BMP #### [facility] [address] [address] [address] Trevor Nichols Creatinine [Mass/Vol] 1.37 mg/dL Critically high 0.66-1.25 [facility] Comment on above: Performed By: #### H STROPN, BNP, BMP #### [facility] [address] [address] [address] Trevor Nichols EGFR-AF ERITREAN >60 Normal >=60 [facility] Comment on above: Performed By: #### H STROPN, BNP, BMP #### [facility] [address] [address] [address] Trevor Nichols EGFR-NON AF ERITREAN 51 mL/min/1.73m2 Critically low >=60 [facility] Comment on above: Performed By: #### H STROPN, BNP, BMP #### [facility] [address] [place] [address] Dr. Trevor Nichols Glucose [Mass/Vol] 114 mg/dL Critically high 74-106 [facility] Comment on above: Performed By: #### H STROPN, BNP, BMP #### [facility] [address] [place] [address] Dr. Trevor Nichols Potassium [Moles/Vol] 4.4 mmol/L Normal 3.4-5.0 [facility] Comment on above: Performed By: #### H STROPN, BNP, BMP #### [facility] [address] [place] [address] Dr. Trevor Nichols Sodium [Moles/Vol] 139 mmol/L Normal 137-145 [facility] Comment on above: Performed By: #### H STROPN, BNP, BMP #### [facility] [address] [place] [address] Dr. Trevor Nichols Urea nitrogen [Mass/Vol] 20.0 mg/dL Normal 9.0-20.0 [facility] Comment on above: Performed By: #### H STROPN, BNP, BMP #### [facility] [address] [place] [address] Dr. Trevor Nichols Urea nitrogen/Creatinine [Mass ratio] 14.6 mg/mg Normal [facility] Comment on above: Performed By: #### H STROPN, BNP, BMP #### [facility] [address] [place] [address] Dr. Trevor Nichols TROPONIN, HIGH SENSITIVITYon 05-15-2021 HSTROP 7.1 pg/mL Normal 4.0-42.2 [facility] Comment on above: Result Comment: CUT- OFF POINTS HAVE BEEN ESTABLISHED BASED ON THE FOURTH UNIVERSAL DEFINITIONS OF MYOCARDIAL INFARCTION. THE UPPER REFERENCE LIMIT (URL) OF TROPONIN, DEFINED THE 99TH PERCENTILE OF cTnI DISTRIBUTION IN A REFERENCE POPULATION, HAS BEEN CONFIRMED THE DECISION THRESHOLD FOR NE DIAGNOSIS. Performed By: #### H STROPN, BNP, BMP #### [facility] [address] [address] [address] Trevor Nichols TSHon 05-15-2021 TSH 1.972 uIU/mL Normal 0.470-4.680 [facility] Comment on above: Performed By: #### T SH, FT3 ####[facility] [address] [address]Dr. Trevor Nichols TSH RANGE SEE BELOW Normal [facility] Comment on above: Result Comment: <0.3 4 UIU/ml HYPERTHYROID 0.34-5.60 UIU/ml EUTHYROID >5.60 UIU/ml HYPOTHYROID Performed By: #### T SH, FT3 ####[facility] [address] [address]Dr. Trevor Nichols D-DIMERon 05-14-2021 D-DIMER 0.76 mg/L FEU Critically high 0.19-0.50 [facility] Comment on above: Performed By: #### H STROPN, BNP, BMP #### [facility] [address] [place] [address] Dr. Trevor Nichols D-DIMER COMMENTS SEE BELOW Normal [facility] Comment on above: Result Comment: Incr eases [...] By: #### H STROPN, BNP, BMP #### [facility] [address] [address] [address] Trevor Nichols PROF CHEM 8 (BAS METB)on Anion gap [Moles/Vol] 12.0 mmol/L Normal [facility] Comment on above: Performed By: #### H STROPN, BNP, BMP #### [facility] [address] [address] [address] Trevor Nichols Calcium [Mass/Vol] 8.5 mg/dL Normal 8.4-10.2 [facility] Comment on above: Performed By: #### H STROPN, BNP, BMP #### [facility] [address] [address] [address] Trevor Nichols Chloride [Moles/Vol] 106 mmol/L Normal 98-107 [facility] Comment on above: Performed By: #### H STROPN, BNP, BMP #### [facility] [address] [address] [address] Trevor Nichols CO2 [Moles/Vol] 25.0 mmol/L Normal 22.0-30.0 [facility] Comment on above: Performed By: #### H STROPN, BNP, BMP #### [facility] [address] [address] [address] Trevor Nichols Creatinine [Mass/Vol] 1.61 mg/dL Critically high 0.66-1.25 [facility] Comment on above: Performed By: #### H STROPN, BNP, BMP #### [facility] [address] [address] [address] Trevor Nichols EGFR-AF ERITREAN 51 mL/min/1.73m2 Critically low >=60 [facility] Comment on above: Performed By: #### H STROPN, BNP, BMP #### [facility] [address] [address] [address] Trevor Nichols EGFR-NON AF ERITREAN 42 mL/min/1.73m2 Critically low >=60 [facility] Comment on above: Performed By: #### H STROPN, BNP, BMP #### [facility] [address] [address] [address] Trevor Nichols Glucose [Mass/Vol] 115 mg/dL Critically high 74-106 [facility] Comment on above: Performed By: #### H STROPN, BNP, BMP #### [facility] [address] [address] [address] Trevor Nichols Potassium [Moles/Vol] 4.0 mmol/L Normal 3.4-5.0 [facility] Comment on above: Performed By: #### H STROPN, BNP, BMP #### [facility] [address] [address] [address] Trevor Nichols Sodium [Moles/Vol] 139 mmol/L Normal 137-145 [facility] Comment on above: Performed By: #### H STROPN, BNP, BMP #### [facility] [address] [place] [address] Dr. Trevor Nichols Urea nitrogen [Mass/Vol] 20.0 mg/dL Normal 9.0-20.0 [facility] Comment on above: Performed By: #### H STROPN, BNP, BMP #### [facility] [address] [address] [address] Trevor Nichols Urea nitrogen/Creatinine [Mass ratio] 12.4 mg/mg Normal [facility] Comment on above: Performed By: #### H STROPN, BNP, BMP #### [facility] [address] [place] [address] Dr. Trevor Nichols PROF CHEM 8 (BAS METB)on Anion gap [Moles/Vol] 19.5 mmol/L Normal [facility] Comment on above: Performed By: #### B MP ####[facility] [address] [address]Dr. Trevor Nichols Calcium [Mass/Vol] 9.1 mg/dL Normal 8.4-10.2 [facility] Comment on above: Performed By: #### B MP ####[facility] [address] [address]Dr. Trevor Nichols Chloride [Moles/Vol] 104 mmol/L Normal 98-107 [facility] Comment on above: Performed By: #### B MP ####[facility] [address] [place], [place] [address]Dr. Trevor Nichols CO2 [Moles/Vol] 19.6 mmol/L Critically low 22.0-30.0 [facility] Comment on above: Performed By: #### B MP ####[facility] [address] [address]Dr. Trevor Nichols Creatinine [Mass/Vol] 1.69 mg/dL Critically high 0.66-1.25 [facility] Comment on above: Performed By: #### B MP ####[facility] [address] [address]Dr. Trevor Nichols EGFR-AF ERITREAN 48 mL/min/1.73m2 Critically low >=60 [facility] Comment on above: Performed By: #### B MP ####[facility] [address] [place], [place] [address]Dr. Trevor Nichols EGFR-NON AF ERITREAN 40 mL/min/1.73m2 Critically low >=60 [facility] Comment on above: Performed By: #### B MP ####[facility] [address] [place], [place] [address]Dr. Trevor Nichols Glucose [Mass/Vol] 95 mg/dL Normal 74-106 [facility] Comment on above: Performed By: #### B MP ####[facility] [address] [place], [place] [address]Dr. Trevor Nichols Potassium [Moles/Vol] 5.4 mmol/L Critically high 3.4-5.0 [facility] Comment on above: Performed By: #### B MP ####[facility] [address] [place], [place] [address]Dr. Trevor Nichols Sodium [Moles/Vol] 138 mmol/L Normal 137-145 [facility] Comment on above: Performed By: #### B MP ####[facility] [address] [place], [place] [address]Dr. Trevor Nichols Urea nitrogen [Mass/Vol] 26.0 mg/dL Critically high 9.0-20.0 [facility] Comment on above: Performed By: #### B MP ####[facility] [address] [place], [place] [address]Dr. Trevor Nichols Urea nitrogen/Creatinine [Mass ratio] 15.4 mg/mg Normal [facility] Comment on above: Performed By: #### B MP ####[facility] [address] [place], [place] [address]Dr. Trevor Nichols BNPon 04-29-2021 Natriuretic peptide B (Bld) [Mass/Vol] 421.0 pg/mL Normal <=900.0 [facility] Comment on above: Performed By: #### B AREA SAFETY MANAGER, MG ####[facility] [address] [place] [address] Rose Marie CBC W MANUAL DIFFon 04-29-20 21 ATYPICAL LYMPH # 0.19 103/ul Normal [facility] Comment on above: Performed By: #### Brodie HEMPHILL ####[facility] [address] [place] [address] Rose Marie#### PERSMR ####[facility] [address] [place], [place] [address]Dr. Trevor Nichols ATYPICAL LYMPH % 4 % Normal [facility] Comment on above: Performed By: #### Brodie HEMPHILL ####[facility] [address] [place] [address] Rose Marie#### PERSMR ####[facility] [address] [place], [place] [address]Dr. Trevor Simone BAND # 0.2 103/ul Normal 0.0-0.3 [facility] Comment on above: Performed By: #### Brodie HEMPHILL ####[facility] [address] [place] [address] Rose Marie#### PERSMR ####[facility] [address] [place], [place] [address]Dr. Trevor Nichols BAND % 5 % Normal 0-5 [facility] Comment on above: Performed By: #### C JOBY ####[facility] [address] [place] [address] Rose Marie#### PERSMR ####[facility] [address] [place], [place] [address]Dr. Trevor Nichols BASOM # 0.05 103/ul Normal 0.00-0.10 [facility] Comment on above: Performed By: #### C JOBY ####[facility] [address] [place], [place] [address]Gerken Rose Marie#### PERSMR ####[facility] [address] [address]Dr. Trevor Nichols BASOM % 1.0 % Normal 0.2-2.0 [facility] Comment on above: Performed By: #### C FAVIOMAN ####[facility] [address] [place] [address] Rose Marie#### PERSMR ####[facility] [address] [place], [place] [address]Dr. Trevor Nichols BLAST # Normal [facility] Comment on above: Performed By: #### C JOBY ####[facility] [address] [place] [address] Rose Marie#### PERSMR ####[facility] [address] [place], [place] [address]Dr. Trevor Nichols BLAST % Normal [facility] Comment on above: Performed By: #### C JOBY ####[facility] [address] [place] [address] Rose Marie#### PERSMR ####[facility] [address] [place], [place] [address]Dr. Trevor Nichols CORRECTED WBC Normal 4.0-11.0 [facility] Comment on above: Performed By: #### C JOBY ####[facility] [address] [place] [address] Rose Marie#### PERSMR ####[facility] [address] [place], [place] [address]Dr. Trevor Nichols EOS # 0.00 103/ul Normal 0.00-0.70 [facility] Comment on above: Performed By: #### C JOBY ####[facility] [address] [place] [address] Rose Marie#### PERSMR ####[facility] [id number]. Trevor Nichols EOS% 0.0 % Critically low 0.9-7.0 [facility] Comment on above: Performed By: #### C JOBY ####[facility] [address] [address]Gerken Rose Marie#### PERSMR ####[facility] [address] [address]Dr. Trevor Nichols HCT 35.7 % Critically low 42.0-54.0 [facility] Comment on above: Performed By: #### C JOBY ####[facility] [address] [place] [address] Rose Marie#### PERSMR ####[facility] [address] [place], [place] [address]Dr. Trevor Nichols HGB 11.7 g/dl Critically low 14.0-18.0 [facility] Comment on above: Performed By: #### C JOBY ####[facility] [address] [place] [address] Rose Marie#### PERSMR ####[facility] [address] [place], [place] [address]Dr. Trevor Nichols LYMPHM # 0.72 103/ul Critically low 1.20-3.80 [facility] Comment on above: Performed By: #### C JOBY ####[facility] [address] [place] [address] Rose Marie#### PERSMR ####[facility] [address] [address]Dr. Trevor Nichols LYMPHM% 15.0 % Critically low 20.5-60.0 [facility] Comment on above: Performed By: #### C JOBY ####[facility] [address] [place] [address] Rose Marie#### PERSMR ####[facility] [address] [address]Dr. Trevor Nichols MCH 34.4 pg Critically high 25.9-34.0 [facility] Comment on above: Performed By: #### Brodie HEMPHILL ####[facility] [address] [place] [address] Rose Marie#### PERSMR ####[facility] [address] [place], [place] [address]Dr. Trevor Nichols MCHC 32.8 g/dl Normal 29.9-35.2 [facility] Comment on above: Performed By: #### Brodie HEMPHILL ####[facility] [address] [place] [address] Rose Marie#### PERSMR ####[facility] [address] [place], [place] [address]Dr. Trevor Nichols MCV 105.0 fL Critically high 80.0-94.0 [facility] Comment on above: Performed By: ###Moo HEMPHILL ####[facility] [address] [place] [address] Rose Marie#### PERSMR ####[facility] [address] [place], [place] [address]Dr. Trevor Nichols METAMYELOCYTE # Normal [facility] Comment on above: Performed By: ###Moo HEMPHILL ####[facility] [address] [place] [address] Rose Marie#### PERSMR ####[facility] [address] [place], [place] [address]Dr. Trevor Nichols METAMYELOCYTE % Normal [facility] Comment on above: Performed By: #### Brodie EHMPHILL ####[facility] Vpdfivkzzy720354 [place] [address] Rose Marie#### PERSMR ####[facility] [place] [facility] Yzpdvaqhqn[address] [place], [place] [address]Dr. Trevor Nichols MONOM# 1.25 103/ul Critically high 0.30-0.80 [facility] Comment on above: Performed By: #### Brodie HEMPHILL ####[facility] [place] [facility] I[address] [place] [address] Rose Marie#### PERSMR ####[facility] [place] [facility] Azifndpdiq[address] [place], [place] [id number]. Trevor Nichols MONOM% 26.0 % Critically high 1.7-12.0 [facility] Comment on above: Performed By: #### Brodie HEMPHILL ####[facility] [place] [facility] Rnborcivvm[address] [place] [address] Rose Marie#### PERSMR ####[facility] [place] [facility] Monfxuvdkx7977 [place] [id number]. Trevor Nichols MPV 10.5 fL Normal 9.5-13.5 [facility] Comment on above: Performed By: #### Brodie HEMPHILL ####[facility] [place] [facility] Lqtgacifqa5907 [place] [address] Rose Marie#### PERSMR ####[facility] [place] [facility] Atmtfcwsha[address] [place], [place] [id number]. Trevor Nichols MYELOCYTE # Normal [facility] [place] [facility] Comment on above: Performed By: #### Brodie HEMPHILL ####[facility] [place] [facility] Fluckpb[address] [place] [address] Rose Marie#### PERSMR ####[facility] [place] [facility] Mrxqekeikw[address] [place], [place] [id number]. Trevor Nichols MYELOCYTE % Normal [facility] [place] [facility] Comment on above: Performed By: #### Brodie HEMPHILL ####[facility] [place] [facility] Rvecvublaq[address] [place], [place] [address]Ger[address] Rose Marie#### PERSMR ####[facility] [place] [facility] Xgyiartbfh38[address] [place], [place] [id number]. Trevor Nichols NRBC Normal [facility] Comment on above: Performed By: #### Brodie HEMPHILL ####[facility] [place] [facility] Irhlmkxdcy8270 [place] [address] Rose Marie#### PERSMR ####[facility] [place] [facility] Dpxrcvxwpv[address] [place], [place] [id number]. Trevor Nichols PATH REVIEW INDICATED Normal [facility] [place] [facility] Comment on above: Performed By: #### Brodie HEMPHILL ####[facility] [place] [facility] Jxosntihre[address] [place], [place] [address]Ger[address] Rose Marie#### PERSMR ####[facility] [place] [facility] Cepmxqlccl[address] [place] [address]Rj. Trevor Nichols PLT 158 103/ul Normal 150-450 [facility] [place] [facility] Comment on above: Performed By: #### Brodie HEMPHILL ####[facility] [place] [facility] Ddwygrkddc6441 [address] Rose Marie#### PERSMR ####[facility] [place] [facility] Bbrmkwsajc9434 [place] [id number]. Trevor Nichols RBC 3.40 106/ul Critically low 4.70-6.10 [facility] [place] [facility] Comment on above: Performed By: #### Brodie HEMPHILL ####[facility] [place] [facility] Csfretmena[address] [place] [address] Rose Marie#### PERSMR ####[facility] [place] [facility] Qedzbvrfcy[address] [place], [place] [address]Dr. Trevor Nichols RDW 15.6 % Critically high 11.0-15.0 [facility] [place] [facility] Comment on above: Performed By: #### Brodie HEMPHILL ####[facility] [place] [facility] Shytbechqe[address] [place] [address] Rose Marie#### PERSMR ####[facility] [place] [facility] Esmpgkcmmy6927 [place] [id number]. Trevor Nichols SEG # 2.35 103/ul Normal 1.40-6.50 [facility] [place] [facility] Comment on above: Performed By: #### Brodie HEMPHILL ####[facility] [place] [facility] Cabefkpyju[address] [place] [address] Rose Marie#### PERSMR ####[facility] [place] [facility] Whywsmclgv[address] [place], [place] [address]Dr. Trevor Nichols SEG % 49.0 % Normal 43.0-75.0 [facility] [place] [facility] Comment on above: Performed By: #### Brodie HEMPHILL ####[facility] [place] [facility] Nwzisuoohj[address] [place] [address] Rose Marie#### PERSMR ####[facility] [place] [facility] Vqujjfoaox[address] [place], [place] [address]Dr. Trevor Nichols WBC 4.8 103/ul Normal 4.0-11.0 [facility] [place] [facility] Comment on above: Performed By: #### Brodie HEMPHILL ####[facility] [place] [facility] Fxbndqfkyt5317 [address] Rose Marie#### PERSMR ####[facility] [place] [facility] Izlsiulpsz8671 [place] [id number]. Trevor Nichols MAGNESIUMon 04-29-2021 Magnesium [Mass/Vol] 2.4 mg/dL Critically high 1.6-2.3 [facility] Comment on above: Performed By: #### B AREA SAFETY MANAGER, MG ####[facility] [place] [facility] Wuddadjrrx[address] [place], [place] [address]elzbieta Trotter PERIPHERAL SMEARon Pathologist Cyto stain Nom (Cvx/Vag) [ID] DR. BHARTI PARDO Normal [facility] Comment on above: Result Comment: Kate pheral blood smear reveals isolated monocytosis with unremarkable morphology. The neutrophils and platelets are morphologically unremarkable. No atypical lymphocytes or blasts are noted. A reactive process is favored. Clinical correlation is suggested. Dr Bharti Pardo 05/01/2021 Performed By: #### C JOBY ####[facility] [place] [facility] Mcti[address] [place] [address] Rose Marie#### PERSMR ####[facility] [place] [facility] Uaekpjozij8785 [place] [id number]. Trevor Nichols VITAMIN D 25 OHon 04-29-2021 VIT D 25-OH 71.4 ng/mL Normal [facility] Comment on above: Performed By: #### V ITAD ####[facility] [place] [facility] Etybijbldp[address] [place] [address] Rose Marie VIT D RANGES SEE BELOW Normal [facility] [place] [facility] Comment on above: Result Comment: <20 ng/mL Vit D deficient 20 - <30 ng/mL Vit D insufficient 30 - 100 ng/mL Vit D sufficient >100 ng/mL Potential Toxicity Performed By: #### V ITAD ####[facility] [place] [facility] Xs[address] [place] [address] Rose Marie POC GLUCOSE LABon 06-30-2020 Glucose [Mass/Vol] 108 mg/dL High 70-100 [facility] Comment on above: Performed By: #### 4 1000, 82657 #### [facility] [address] [place] [address], [place] Glucose [Mass/Vol] 165 mg/dL High 70-100 [facility] Comment on above: Performed By: #### 4 1000, 21930 #### [facility] [address] [facility] [place] [address], [facility] C REACTIVE PROTEINon 020 CRP [Mass/Vol] 27.8 mg/L High 0.0-7.0 [facility] Comment on above: Order Comment: No: D o not add to previous draw Performed By: #### 4 1000, 57742, 70489 #### [facility] [address] CBC COMPLETE BLOOD COUNTon 08-29-2019 Erythrocyte distribution width (RBC) [Ratio] 14.3 % Normal 11.5-15.0 [facility] Comment on above: Order Comment: No: D o not add to previous draw Performed By: #### 4 1000, 03303 #### [facility] [address] [place] [address], [facility] Hematocrit (Bld) [Volume fraction] 34.7 % Low 39.0-50.0 [facility] Comment on above: Order Comment: No: D o not add to previous draw Performed By: #### 4 1000, 45466 #### [facility] [address] [place] [address], [facility] Hemoglobin (Bld) [Mass/Vol] 11.6 g/dL Low 13.0-17.0 [facility] Comment on above: Order Comment: No: D o not add to previous draw Performed By: #### 4 1000, 42220 #### [facility] [address] [facility] [address], [facility] MCH (RBC) [Entitic mass] 35.5 pg High 27.0-33.0 [facility] Comment on above: Order Comment: No: D o not add to previous draw Performed By: #### 4 1000, 71474 #### [facility] [address] [place] [address], [facility] MCHC (RBC) [Mass/Vol] 33.4 g/dL Normal 32.0-35.0 [facility] Comment on above: Order Comment: No: D o not add to previous draw Performed By: #### 4 1000, 59851 #### [facility] [address] [place] [address], [facility] MCV (RBC) [Entitic vol] 106.1 fL High 82.0-98.0 [facility] Comment on above: Order Comment: No: D o not add to previous draw Performed By: #### 4 1000, 57909 #### [facility] [address] [facility] [place] [id number], [facility] Nucleated RBC/100 WBC (Bld) [Ratio] 0 % Normal 0-0 [facility] Comment on above: Order Comment: No: D o not add to previous draw Performed By: #### 4 1000, 88339 #### [facility] [address] [place] [address], [place] PLAT CNT 150 10*3/uL Normal 150-400 [facility] Comment on above: Order Comment: No: D o not add to previous draw Performed By: #### 4 1000, 01172 #### [facility] [address] [place] [address], [facility] RBC (Bld) [#/Vol] 3.27 10*6/uL Low 4.20-5.70 [facility] Comment on above: Order Comment: No: D o not add to previous draw Performed By: #### 4 1000, 20665 #### [facility] [address] [place] [address], [place] WBC (Bld) [#/Vol] 5.86 10*3/uL Normal 4.00-10.60 [facility] Comment on above: Order Comment: No: D o not add to previous draw Performed By: #### 4 1000, 32156 #### [facility] [address] [facility] [address], [facility] CPKon 06-29-2020 CK [Catalytic activity/Vol] 45 U/L Normal 30-223 [facility] Comment on above: Order Comment: Unkno wn Performed By: #### 9 9909, 03660, 91624, 75746 #### [facility] [address] [facility] [address], [facility] CT BRAIN WO CONTRASTon 06-29 CT BRAIN WO CONTRAST [facility] Department of Radiology [address] [place] [id number] Patient Name: CHIKI JUAREZ : 1945 Sex: M Age: Race: White Pt. Location: [id number] Patient Status: I Ordered Date: 06/29/2020 9:20:00 [...] region. Electronically signed: Aleta Armas. Transcribed by: [email or web address], User Resident: Electronically Signed by: ALETA ARMAS @ 06/29/2020 07:16 PM Normal [facility] Comment on above: Order Comment: No: D o not add to previous draw D DIMER TESTon 06-29-2020 D-DIMER TEST 1.44 mcg/mL FEU High 0.27-0.49 [facility] Comment on above: Order Comment: No: D o not add to previous draw Result Comment: D-Di fide values of less than 0.50 ug/ml (FEU) are considered to be a negative predictor of thrombosis. However, the D-Dimer result should be used in conjunction with pretest probability and should not be used alone to diagnose a thrombotic event. Performed By: #### 4 1000, 12830, 35072 #### [facility] [address] [place] [address], [facility] FERRITINon 06-29-2020 Ferritin [Mass/Vol] 271 ng/mL Normal 24-336 [facility] Comment on above: Order Comment: Unkno wn Performed By: #### 9 9909, 25883, 16065, 22660 #### [facility] [address] [place] [id number], [facility] LDH BLOODon 06-29-2020 LDH 148 Units/L Normal 140-271 [facility] Comment on above: Order Comment: Unkno wn Performed By: #### 9 9909, 05296, 99716, 37004 #### [facility] [address] [place] [address], [facility] LIPID PROFILEon 06-29-2020 Cholesterol [Mass/Vol] 176 mg/dL Normal 120-200 [facility] Comment on above: Order Comment: No: D o not add to previous draw Result Comment: CHOL ESTEROL REFERENCE RANGE: 20 YEARS AND OLDER CARDIOVASCULAR RISK Less than 200 mg/dl Low Risk 200 to 239 mg/dl Borderline Risk 240 mg/dl and greater High Risk Performed By: #### 4 1000, 31309, 18059 #### [facility] [address] [place] [address], [facility] Cholesterol in HDL [Mass/Vol] 39 mg/dL Normal 23-92 [facility] Comment on above: Order Comment: No: D o not add to previous draw Result Comment: Slig ht variation in normal range could be due to gender and/or age. HDL CHOLESTEROL REFERENCE RANGE: 20 years and older Cardiovascular Risk > or =60 mg/dL Desirable 40 TO 59 mg/dL Low Risk <40 mg/dL High Risk Performed By: #### 4 1000, 77920, 74289 #### [facility] [address] [place] [address], [facility] Cholesterol in LDL [Mass/Vol] 100 mg/dL Normal 0-130 [facility] Comment on above: Order Comment: No: D o not add to previous draw Result Comment: LDL IS A CALCULATION LDL IS ONLY VALID IF THE TRIG IS LESS THAN 400. Performed By: #### 4 1000, 25469, 00572 #### [facility] [address] [facility] [address], [facility] Cholesterol.total/Ch olesterol in HDL [Mass ratio] 4.5 {ratio} Normal 0.0-4.5 [facility] Comment on above: Order Comment: No: D o not add to previous draw Performed By: #### 4 1000, 96716, 80706 #### [facility] [address] [place] [address], [place] NON-HDL CHOLESTEROL 137 mg/dL Normal [facility] Comment on above: Order Comment: No: D o not add to previous draw Performed By: #### 4 1000, 16377, 52723 #### [facility] [address] [place] [address], [facility] Triglyceride [Mass/Vol] 187 mg/dL High 40-149 [facility] Comment on above: Order Comment: No: D o not add to previous draw Result Comment: TRIG LYCERIDE REFERENCE RANGE: 20 YEARS AND OLDER CARDIOVASCULAR RISK LESS THAN 150 mg/dl LOW RISK 150 TO 199 mg/dl BORDERLINE RISK 200 mg/dl AND GREATER HIGH RISK Performed By: #### 4 1000, 38488, 21985 #### [facility] [address] [place] [address], [facility] VLDL CHOL 37 mg/dL Normal 0-40 [facility] Comment on above: Order Comment: No: D o not add to previous draw Performed By: #### 4 1000, 05426, 51869 #### [facility] [address] [place] [address], [facility] LIVER BATTERYon 06-29-2020 Albumin [Mass/Vol] 3.4 g/dL Low 3.5-5.7 [facility] Comment on above: Order Comment: Unkno wn Performed By: #### 9 9909, 75105, 03949, 83271 #### [facility] [address] [place] [address], [facility] ALKALINE PHOSPH 60 IU/L Normal 34-104 [facility] Comment on above: Order Comment: Unkno wn Performed By: #### 9 9909, 96466, 94158, 75824 #### [facility] [address] [place] [address], [place] ALT [Catalytic activity/Vol] 8 U/L Normal 7-52 [facility] Comment on above: Order Comment: Unkno wn Performed By: #### 9 9909, 41473, 81566, 44666 #### [facility] [address] [place] [address], [place] AST [Catalytic activity/Vol] 11 U/L Low 13-39 [facility] Comment on above: Order Comment: Unkno wn Performed By: #### 9 9909, 46246, 10516, 76259 #### [facility] [address] [place] [address], [place] Bilirubin [Mass/Vol] 0.5 mg/dL Normal 0.3-1.0 [facility] Comment on above: Order Comment: Unkno wn Performed By: #### 9 9909, 50746, 80265, 71370 #### [facility] [address] [place] [address], [place] Bilirubin.direct [Mass/Vol] 0.1 mg/dL Normal 0.0-0.2 [facility] Comment on above: Order Comment: Unkno wn Performed By: #### 9 9909, 44613, 55104, 85636 #### [facility] [address] [place] [address], [place] Protein [Mass/Vol] 5.8 g/dL Low 6.0-8.3 [facility] Comment on above: Order Comment: Unkno wn Performed By: #### 9 9909, 90598, 34209, 91644 #### [facility] [address] [place] [address], [place] POC GLUCOSE LABon 06-29-2020 Glucose [Mass/Vol] 112 mg/dL High 70-100 [facility] Comment on above: Performed By: #### 4 1000, 53478 #### [facility] [address] [place] [address], [place] Glucose [Mass/Vol] 105 mg/dL High 70-100 [facility] Comment on above: Performed By: #### 4 1000, 66691 #### [facility] [address] [place] [address], [place] Glucose [Mass/Vol] 94 mg/dL Normal 70-100 [facility] Comment on above: Performed By: #### 4 1000, 23712, 75153 #### [facility] [address] [place] [address], [facility] Glucose [Mass/Vol] 121 mg/dL High 70-100 [facility] Comment on above: Performed By: #### 4 1000, 18566 #### [facility] [address] [place] [address], [facility] PORTABLE CHEST 1 VIEWon 06-17 PORTABLE CHEST 1 VIEW [facility] Department of Radiology [address] [place] [id number] Patient Name: CHIKI JUAREZ : 1945 Sex: M Age: Race: White Pt. Location: [id number] Patient Status: I Ordered Date: 06/29/2020 5:45:00 [...] placement. Electronically signed: Aleta Armas. Transcribed by: [email or web address], User Resident: Electronically Signed by: ALETA ARMAS @ 06/29/2020 08:15 PM Normal [facility] Comment on above: Order Comment: No: D o not add to previous draw BASIC METABOLIC PANELon 11 Calcium [Mass/Vol] 8.8 mg/dL Normal 8.6-10.3 [facility] Comment on above: Order Comment: No: D o not add to previous draw Performed By: #### 4 1000, 14053, 93956 #### [facility] [address] [place] [address], [place] Chloride [Moles/Vol] 102 mmol/L Normal 98-107 [facility] Comment on above: Order Comment: No: D o not add to previous draw Performed By: #### 4 1000, 24255, 39686 #### [facility] [address] [place] [address], [place] CO2 [Moles/Vol] 24 mmol/L Normal 21-31 [facility] Comment on above: Order Comment: No: D o not add to previous draw Performed By: #### 4 1000, 49019, 46302 #### [facility] [address] [place] [address], [place] Creatinine [Mass/Vol] 1.31 mg/dL High 0.70-1.30 [facility] Comment on above: Order Comment: No: D o not add to previous draw Performed By: #### 4 1000, 03088, 05488 #### [facility] [address] [place] [address], [place] GFR/1.73 sq M predicted among blacks MDRD (S/P/Bld) [Vol rate/Area] mL/min/{1.73_m2} Normal >60 [facility] Comment on above: Order Comment: No: D o not add to previous draw Result Comment: Calc ulation may not be valid for patients over 70 years Performed By: #### 4 1000, , 55542 #### [facility] [address] [place] [address], [place] GFR/1.73 sq M predicted among non-blacks MDRD (S/P/Bld) [Vol rate/Area] 54 ml/min/1.73sq m Abnormal >60 [facility] Comment on above: Order Comment: No: D o not add to previous draw Result Comment: Calc ulation may not be valid for patients over 70 years Performed By: #### 4 1000, , 01808 #### [facility] [address] [place] [address], [place] Glucose [Mass/Vol] 96 mg/dL Normal 70-100 [facility] Comment on above: Order Comment: No: D o not add to previous draw Performed By: #### 4 1000, , 66608 #### [facility] [address] [place] [address], [place] Potassium [Moles/Vol] 4.3 mmol/L Normal 3.5-5.1 [facility] Comment on above: Order Comment: No: D o not add to previous draw Performed By: #### 4 1000, , 75717 #### [facility] [address] [place] [address], [place] Sodium [Moles/Vol] 133 mmol/L Low 136-145 [facility] Comment on above: Order Comment: No: D o not add to previous draw Performed By: #### 4 1000, , 37965 #### [facility] [address] [place] [address], [place] Urea nitrogen [Mass/Vol] 26 mg/dL High 7-25 [facility] Comment on above: Order Comment: No: D o not add to previous draw Performed By: #### 4 1000, , 39226 #### [facility] [address] [place] [address], [place] CBC COMPLETE BLOOD COUNTon 1 1-12-2020 Erythrocyte distribution width (RBC) [Ratio] 14.4 % Normal 11.5-15.0 [facility] Comment on above: Order Comment: No: D o not add to previous draw Performed By: #### 4 1000, 04082, 56166 #### [facility] [address] [place] [id number], [facility] Hematocrit (Bld) [Volume fraction] 35.2 % Low 39.0-50.0 [facility] Comment on above: Order Comment: No: D o not add to previous draw Performed By: #### 4 1000, , 53494 #### [facility] [address] [place] [address], [facility] Hemoglobin (Bld) [Mass/Vol] 11.8 g/dL Low 13.0-17.0 [facility] Comment on above: Order Comment: No: D o not add to previous draw Performed By: #### 4 1000, , 26843 #### [facility] [address] [place] [address], [facility] MCH (RBC) [Entitic mass] 35.5 pg High 27.0-33.0 [facility] Comment on above: Order Comment: No: D o not add to previous draw Performed By: #### 4 1000, , 35189 #### [facility] [address] [place] [address], [facility] MCHC (RBC) [Mass/Vol] 33.5 g/dL Normal 32.0-35.0 [facility] Comment on above: Order Comment: No: D o not add to previous draw Performed By: #### 4 1000, , 16334 #### [facility] [address] [place] [id number], [facility] MCV (RBC) [Entitic vol] 106.0 fL High 82.0-98.0 [facility] Comment on above: Order Comment: No: D o not add to previous draw Performed By: #### 4 1000, , 57094 #### [facility] [address] [facility] [address], [facility] Nucleated RBC/100 WBC (Bld) [Ratio] 0 % Normal 0-0 [facility] Comment on above: Order Comment: No: D o not add to previous draw Performed By: #### 4 1000, 23831, 66095 #### [facility] [address] [place] [address], [facility] PLAT CNT 158 10*3/uL Normal 150-400 [facility] Comment on above: Order Comment: No: D o not add to previous draw Performed By: #### 4 1000, , [id number] #### [facility] [address] [place] [address], [facility] RBC (Bld) [#/Vol] 3.32 10*6/uL Low 4.20-5.70 [facility] Comment on above: Order Comment: No: D o not add to previous draw Performed By: #### 4 1000, , 35252 #### [facility] [address] [facility] [place] [address], [facility] WBC (Bld) [#/Vol] 7.25 10*3/uL Normal 4.00-10.60 [facility] Comment on above: Order Comment: No: D o not add to previous draw Performed By: #### 4 999, , 94418 #### [facility] [address] Cardiovascular Lab Reporton 06-28-2020 Cardiovascular Lab Report [facility] Patient Name: Chiki Juarez [facility] MR #: [id number] Physician: Connor Carrera MD Department of Service Date: 06/28/2020 Medicine Birthdate: 1945 Division of Room #: 3CD 877956 Cardiology Adult Cardiovascular Services [place] [address] Cardiovascular Laboratory Report DUAL CHAMBER PACEMAKER IMPLANT PROCEDURE NOTE DATE OF PROCEDURE: 06/28/2020 PERFORMING PHYSICIAN: Dr. Connor Carrera CONSENT: Patient LOCATION: EP Lab PROCEDURE PERFORMED: 1. Implantation of pacemaker ([employer]) 2. Ultrasound guided venous access INDICATIONS: [...] using modified seldinger technique using a 5 Cym[employer]es micro-puncture needle on two occasions and 0.24 [...] was made enough for the device. 6 [employer]ym[employer]es Safesheaths were placed over the wire. An active fixation [employer] pacing lead was then delivered through the 6Fsheath to the right ventricle. After confirmation of lead position on orthogonal views (PARK and ROMANSH) to confirm septal position, the screw was activated, and the lead was placed in the right ventricular mid cavity towards the septum. After confirmation of good sensing parameters, injury pattern and pacing thresholds, 10V pacing was done and no diaphragmatic stimulation was noted. It was then secured in the pocket using three 1-0 Silk sutures. Then an active fixation [employer] lead was delivered through the 6Fsheath to the right atrial appendage. After confirmation of lead position on orthogonal views (PARK and ROMANSH), the screw was activated. After confirmation of [...] immediate procedural complications were noted. Device info: Anaplan Accolade MRI EL Model# L331 Serial# [id number] RA lead: Model# INGEVITY [id number] (45cms) Serial# [id number] Sensin.7mV Threshold: 0.9V@0.4ms Impedance: 666Ohms RV lead: Model# INGEVITY [id number](52cms) Serial# [id number] Sensin.1mV Threshold: 0.4V@0.4ms Impedance: 746Ohms POST PROCEDURE [...] Carrera MD Date Trans: 06/28/2020 03:33 P/alondra [id number] cc: Will Sherwood M.D. 1 [facility] A [facility] [id number] Normal [facility] MAGNESIUM BLOODon 06-28-2020 Magnesium [Mass/Vol] 2.1 mg/dL Normal 1.9-2.7 [facility] Comment on above: Order Comment: No: D o not add to previous draw Performed By: #### 4 1000, 15508, 83095 #### [facility] [address] [place] [address], [place] PHOSPHORUS BLOODon 0 Phosphate [Mass/Vol] 3.7 mg/dL Normal 2.5-5.0 [facility] Comment on above: Order Comment: No: D o not add to previous draw Performed By: #### 4 1000, 49529, 71405 #### [facility] [address] [place] [address], [place] POC GLUCOSE LABon 06-28-2020 Glucose [Mass/Vol] 93 mg/dL Normal 70-100 [facility] Comment on above: Performed By: #### 4 1000, 86463 #### [facility] [address] [place] [address], [place] Glucose [Mass/Vol] 90 mg/dL Normal 70-100 [facility] Comment on above: Performed By: #### 4 1000, 94663 #### [facility] [address] [place] [address], [place] Glucose [Mass/Vol] 97 mg/dL Normal 70-100 [facility] Comment on above: Performed By: #### 4 1000, 46329 #### [facility] [address] [place] [address], [place] Glucose [Mass/Vol] 99 mg/dL Normal 70-100 [facility] Comment on above: Performed By: #### 4 1000, 55278 #### [facility] [address] [place] [address], [place] APTTon 06-27-2020 aPTT Coag (Bld) [Time] 34.8 s Normal 25.0-35.0 [facility] Comment on above: Order Comment: No: [...] THIS PURPOSE. Performed By: #### 4 1000, 31241 #### [facility] [address] [place] [address], [facility] BASIC METABOLIC PANELon 06-17 Calcium [Mass/Vol] 9.1 mg/dL Normal 8.6-10.3 [facility] Comment on above: Order Comment: No: D o not add to previous draw Performed By: #### 4 1000, 36365, 09189 #### [facility] [address] [place] [address], [place] Chloride [Moles/Vol] 104 mmol/L Normal 98-107 [facility] Comment on above: Order Comment: No: D o not add to previous draw Performed By: #### 4 1000, 26645, 45542 #### [facility] [address] [place] [address], [place] CO2 [Moles/Vol] 23 mmol/L Normal 21-31 [facility] Comment on above: Order Comment: No: D o not add to previous draw Performed By: #### 4 1000, 56572, 81586 #### [facility] [address] [place] [address], [place] Creatinine [Mass/Vol] 1.21 mg/dL Normal 0.70-1.30 [facility] Comment on above: Order Comment: No: D o not add to previous draw Performed By: #### 4 1000, 24850, 85896 #### [facility] [address] [place] [address], [facility] GFR/1.73 sq M predicted among blacks MDRD (S/P/Bld) [Vol rate/Area] mL/min/{1.73_m2} Normal >60 [facility] Comment on above: Order Comment: No: D o not add to previous draw Result Comment: Calc ulation may not be valid for patients over 70 years Performed By: #### 4 1000, 20906, 30470 #### [facility] [address] [place] [address], [place] GFR/1.73 sq M predicted among non-blacks MDRD (S/P/Bld) [Vol rate/Area] 59 ml/min/1.73sq m Abnormal >60 [facility] Comment on above: Order Comment: No: D o not add to previous draw Result Comment: Calc ulation may not be valid for patients over 70 years Performed By: #### 4 1000, , 22430 #### [facility] [address] [place] [address], [place] Glucose [Mass/Vol] 132 mg/dL High 70-100 [facility] Comment on above: Order Comment: No: D o not add to previous draw Performed By: #### 4 1000, , 01752 #### [facility] [address] [place] [address], [place] Potassium [Moles/Vol] 5.2 mmol/L High 3.5-5.1 [facility] Comment on above: Order Comment: No: D o not add to previous draw Performed By: #### 4 1000, 04676, 00080 #### [facility] [address] [place] [address], [place] Sodium [Moles/Vol] 135 mmol/L Low 136-145 [facility] Comment on above: Order Comment: No: D o not add to previous draw Performed By: #### 4 1000, 37291, 96264 #### [facility] [address] [place] [address], [place] Urea nitrogen [Mass/Vol] 21 mg/dL Normal 7-25 [facility] Comment on above: Order Comment: No: D o not add to previous draw Performed By: #### 4 1000, 39405, 31174 #### [facility] [address] [place] [address], [facility] C REACTIVE PROTEINon 020 CRP [Mass/Vol] 40.5 mg/L High 0.0-7.0 [facility] Comment on above: Order Comment: No: D o not add to previous draw Performed By: #### 4 1000, 03801, 65082 #### [facility] [address] [place] [address], [facility] CBC W/DIFFon 06-27-2020 ABS BASOPHILS 0.0 10*3/uL Normal 0.0-0.2 [facility] Comment on above: Order Comment: No: D o not add to previous draw Performed By: #### 4 1000, 53332 #### [facility] [address] [place] [address], [facility] ABS NEUTROPHILS 4.5 10*3/uL Normal 1.6-7.6 [facility] Comment on above: Order Comment: No: D o not add to previous draw Performed By: #### 4 1000, 47392 #### [facility] [address] [place] [address], [facility] Basophils/100 WBC (Bld) 0.0 % Normal 0.0-1.0 [facility] Comment on above: Order Comment: No: D o not add to previous draw Performed By: #### 4 1000, 77519 #### [facility] [address] [place] [address], [facility] Eosinophils (Bld) [#/Vol] 0.0 10*3/uL Normal 0.0-0.5 [facility] Comment on above: Order Comment: No: D o not add to previous draw Performed By: #### 4 1000, 09952 #### [facility] [address] [place] [id number], [facility] Eosinophils/100 WBC (Bld) 0.0 % Normal 0.0-6.0 [facility] Comment on above: Order Comment: No: D o not add to previous draw Performed By: #### 4 1000, 30462 #### [facility] [address] [place] [address], [facility] Erythrocyte distribution width (RBC) [Ratio] 14.1 % Normal 11.5-15.0 [facility] Comment on above: Order Comment: No: D o not add to previous draw Performed By: #### 4 1000, 08369 #### [facility] [address] [place] [address], [facility] GIANT PLATELETS Present Normal [facility] Comment on above: Order Comment: No: D o not add to previous draw Performed By: #### 4 1000, 80382 #### [facility] [address] [place] [address], [facility] Hematocrit (Bld) [Volume fraction] 36.0 % Low 39.0-50.0 [facility] Comment on above: Order Comment: No: D o not add to previous draw Performed By: #### 4 1000, 60201 #### [facility] [address] [place] [address], [facility] Hemoglobin (Bld) [Mass/Vol] 11.8 g/dL Low 13.0-17.0 [facility] Comment on above: Order Comment: No: D o not add to previous draw Performed By: #### 4 1000, 20810 #### [facility] [address] [place] [address], [facility] Lymphocytes (Bld) [#/Vol] 0.5 10*3/uL Low 1.2-4.0 [facility] Comment on above: Order Comment: No: D o not add to previous draw Performed By: #### 4 1000, 29246 #### [facility] [address] Lymphocytes/100 WBC (Bld) 8.2 % Low 20.0-45.0 [facility] Comment on above: Order Comment: No: D o not add to previous draw Performed By: #### 4 1000, 78929 #### [facility] [address] [place] [address], [facility] MCH (RBC) [Entitic mass] 35.2 pg High 27.0-33.0 [facility] Comment on above: Order Comment: No: D o not add to previous draw Performed By: #### 4 1000, 06893 #### [facility] [address] [place] [address], [facility] MCHC (RBC) [Mass/Vol] 32.8 g/dL Normal 32.0-35.0 [facility] Comment on above: Order Comment: No: D o not add to previous draw Performed By: #### 4 1000, 10888 #### [facility] [address] [place] [address], [facility] MCV (RBC) [Entitic vol] 107.5 fL High 82.0-98.0 [facility] Comment on above: Order Comment: No: D o not add to previous draw Performed By: #### 4 1000, 31147 #### [facility] [address] METAMYELO 3.7 % High 0.0-0.0 [facility] Comment on above: Order Comment: No: D o not add to previous draw Performed By: #### 4 1000, 81513 #### [facility] [address] [place] [address], [facility] Monocytes (Bld) [#/Vol] 0.5 10*3/uL Normal 0.1-1.0 [facility] Comment on above: Order Comment: No: D o not add to previous draw Performed By: #### 4 1000, 17370 #### [facility] [address] [place] [address], [facility] MONOS 9.2 % Normal 5.0-12.0 [facility] Comment on above: Order Comment: No: D o not add to previous draw Performed By: #### 4 1000, 31095 #### [facility] [address] [place] [address], [facility] MYELOS 3.7 % High 0.0-0.0 [facility] Comment on above: Order Comment: No: D o not add to previous draw Performed By: #### 4 1000, 84736 #### [facility] [address] [place] [address], [facility] Neutrophils/100 WBC (Bld) 75.2 % High 40.0-72.0 [facility] Comment on above: Order Comment: No: D o not add to previous draw Performed By: #### 4 1000, 76492 #### [facility] [address] [facility] [place] [id number], [facility] NRBC SCAN Present Normal [facility] Comment on above: Order Comment: No: D o not add to previous draw Performed By: #### 4 1000, 88622 #### [facility] [address] [place] [address], [facility] Nucleated RBC/100 WBC (Bld) [Ratio] 0 % Normal 0-0 [facility] Comment on above: Order Comment: No: D o not add to previous draw Performed By: #### 4 1000, 58832 #### [facility] [address] [place] [address], [place] PLAT CNT 153 10*3/uL Normal 150-400 [facility] Comment on above: Order Comment: No: D o not add to previous draw Performed By: #### 4 1000, 43193 #### [facility] [address] [place] [address], [facility] RBC (Bld) [#/Vol] 3.35 10*6/uL Low 4.20-5.70 [facility] Comment on above: Order Comment: No: D o not add to previous draw Performed By: #### 4 1000, 99909 #### [facility] [address] WBC (Bld) [#/Vol] 5.92 10*3/uL Normal 4.00-10.60 [facility] Comment on above: Order Comment: No: D o not add to previous draw Performed By: #### 4 1000, 45425 #### [facility] [address] [facility]. [address] CPKon 06-27-2020 CK [Catalytic activity/Vol] 90 U/L Normal 30-223 [facility] Comment on above: Order Comment: No: D o not add to previous draw Performed By: #### 4 1000, 67059, 70982 #### [facility] [address] CTA HEADon 06-27-2020 CTA HEAD [facility] Department of Radiology [address] [place] [id number] Patient Name: CHIKI JUAREZ : 1945 Sex: M Age: Race: White Pt. Location: [id number] Patient Status: I Ordered Date: 06/27/2020 9:05:00 [...] achievable Electronically signed: Ashu García. Transcribed by: [email or web address], User Resident: Electronically Signed by: ASHU GARCÍA @ 06/27/2020 01:12 PM Normal [facility] Comment on above: Order Comment: No: D o not add to previous draw CTA NECKon 06-27-2020 CTA NECK [facility] Department of Radiology [address] [place] [id number] Patient Name: CHIKI JUAREZ : 1945 Sex: M Age: Race: White Pt. Location: [id number] Patient Status: I Ordered Date: 06/27/2020 9:05:00 [...] viewed on a separate workstation. The [place] Symptomatic Carotid Endarterectomy Trial (NASCET) method for [...] achievable Electronically signed: Ashu García. Transcribed by: [email or web address], User Resident: Electronically Signed by: ASHU GARCÍA @ 06/27/2020 01:08 PM Normal [facility] D DIMER TESTon 06-27-2020 D-DIMER TEST 0.39 mcg/mL FEU Normal 0.27-0.49 [facility] Comment on above: Order Comment: No: D o not add to previous draw Result Comment: D-Di fide values of less than 0.50 ug/ml (FEU) are considered to be a negative predictor of thrombosis. However, the D-Dimer result should be used in conjunction with pretest probability and should not be used alone to diagnose a thrombotic event. Performed By: #### 4 1000, 88307 #### [facility] [address] [facility]. [address] FERRITINon 06-27-2020 Ferritin [Mass/Vol] 250 ng/mL Normal 24-336 [facility] Comment on above: Order Comment: No: D o not add to previous draw Performed By: #### 4 1000, 09204, 82049 #### [facility] [address] [facility] [address] HEMOGLOBIN A1Con 06-27-2020 HbA1c (Bld) [Mass fraction] 134 mmol/L Normal [facility] Comment on above: Order Comment: No: D o not add to previous draw Performed By: #### 4 1000, 08559, 01358 #### [facility] [address] [place] [address], [facility] HbA1c (Bld) [Mass fraction] 6.3 % High 4.0-6.0 [facility] Comment on above: Order Comment: No: D o not add to previous draw Performed By: #### 4 1000, 08590, 76224 #### [facility] [address] [facility] [address], [facility] LDH BLOODon 06-27-2020 LDH 213 Units/L Normal 140-271 [facility] Comment on above: Order Comment: No: D o not add to previous draw Performed By: #### 4 1000, 17285, 14871 #### [facility] [address] [place] [address], [place] LIVER BATTERYon 06-27-2020 Albumin [Mass/Vol] 3.5 g/dL Normal 3.5-5.7 [facility] Comment on above: Order Comment: No: D o not add to previous draw Performed By: #### 4 1000, , 94379 #### [facility] [address] [place] [address], [place] ALKALINE PHOSPH 62 IU/L Normal 34-104 [facility] Comment on above: Order Comment: No: D o not add to previous draw Performed By: #### 4 1000, , 84088 #### [facility] [address] [place] [address], [place] ALT [Catalytic activity/Vol] 11 U/L Normal 7-52 [facility] Comment on above: Order Comment: No: D o not add to previous draw Performed By: #### 4 1000, , 79743 #### [facility] [address] [place] [address], [place] AST [Catalytic activity/Vol] 10 U/L Low 13-39 [facility] Comment on above: Order Comment: No: D o not add to previous draw Performed By: #### 4 1000, , 39286 #### [facility] [address] [place] [address], [place] Bilirubin [Mass/Vol] 0.5 mg/dL Normal 0.3-1.0 [facility] Comment on above: Order Comment: No: D o not add to previous draw Performed By: #### 4 1000, , 06130 #### [facility] [address] [place] [address], [place] Bilirubin.direct [Mass/Vol] 0.2 mg/dL Normal 0.0-0.2 [facility] Comment on above: Order Comment: No: D o not add to previous draw Performed By: #### 4 1000, 01447, 43586 #### [facility] [address] [place] [address], [facility] Protein [Mass/Vol] 6.0 g/dL Normal 6.0-8.3 [facility] Comment on above: Order Comment: No: D o not add to previous draw Performed By: #### 4 1000, 05609, 62731 #### [facility] [address] [place] [address], [facility] MAGNESIUM BLOODon 06-27-2020 Magnesium [Mass/Vol] 2.3 mg/dL Normal 1.9-2.7 [facility] Comment on above: Order Comment: No: D o not add to previous draw Performed By: #### 4 1000, 01361, 07601 #### [facility] [address] [place] [address], [facility] POC GLUCOSE LABon 06-27-2020 Glucose [Mass/Vol] 103 mg/dL High 70-100 [facility] Comment on above: Performed By: #### 4 1000, 28733 #### [facility] [address] [place] [address], [facility] Glucose [Mass/Vol] 100 mg/dL Normal 70-100 [facility] Comment on above: Performed By: #### 4 1000, 28256 #### [facility] [address] [place] [address], [facility] POTASSIUM BLOODon 06-27-2020 Potassium [Moles/Vol] 4.5 mmol/L Normal 3.5-5.1 [facility] Comment on above: Order Comment: No: D o not add to previous draw Performed By: #### 4 1406 #### [facility] [address] [place] [address], [facility] PROTHROMBIN TIMEon 0 INR Coag (PPP) [Relative time] 1.05 {INR} Normal 0.91-1.16 [facility] Comment on above: Order Comment: No: [...] CHEST 1995;[id number]. Performed By: #### 4 1000, 44083 #### [facility] [address] [facility]. [address] PT Coag (PPP) [Time] 13.7 s Normal 12.3-14.8 [facility] Comment on above: Order Comment: No: D o not add to previous draw Result Comment: ALL RESULTS MUST BE INTERPRETED WITH RESPECT TO BLOOD DRAWING ARTIFACT OR DILUTION ERROR OF ANTICOAGULANT AT THE TIME OF SAMPLING. Performed By: #### 4 1000, 89546 #### [facility] [address] [facility]. [address] TSH3 WITH REFLEX FT4on 06-27 TSH 3RD GENERATION 0.86 uIU/mL Normal 0.34-5.60 [facility] Comment on above: Performed By: #### 4 1000, 15780, 50071 #### [facility] [address] [place] [address], [facility] VITAMIN B12on 06-27-2020 Cobalamin (Vitamin B12) [Mass/Vol] 3006 pg/mL High 180-914 [facility] Comment on above: Result Comment: REFE RENCE RANGES: 180-914 pg/mL Normal 145-179 pg/mL Indeterminate <145 pg/mL Deficient Performed By: #### 4 1000, 30498, 52391 #### [facility] [address] [employer]. [address] PHOSPHORUS BLOODon 0 Phosphate [Mass/Vol] 3.2 mg/dL Normal 2.5-5.0 [facility] Comment on above: Order Comment: No: D o not add to previous draw Performed By: #### 4 1000, 40068 #### [facility] [address] TROPONIN-Ion 06-26-2020 Troponin I.cardiac [Mass/Vol] 0.01 ng/mL Normal 0.00-0.04 [facility] Comment on above: Order Comment: No: D o not add to previous draw Result Comment: REFE RENCE RANGES: 0.00 - 0.04 ng/ml NORMAL 0.05 - 0.50 ng/ml INDETERMINATE > 0.50 ng/ml CONSISTENT WITH AN M.I. Performed By: #### 4 1000, [id number] #### [facility] [address] Vital Signs Date Time Vital Sign Value Performing Clinician Facility 05-24-2025 15:57-0400 Body height 160 cm Gil Angulo DPM FACFAS Work Phone: [facility] 05-24-2025 15:57-0400 Body mass index (BMI) [Ratio] 37.73 kg/m2 Gil Angulo DPM FACFAS Work Phone: [facility] 05-24-2025 15:57-0400 Body weight 96.62 kg Gil Angulo DPM FACFAS Work Phone: [facility] 05-24-2025 15:57-0400 Diastolic blood pressure 74 mm[Hg] Gil Angulo DPM FACFAS Work Phone: [facility] 05-24-2025 15:57-0400 Heart rate 81 /min Gil Dolce DPM FACFAS Work Phone: [facility] 05-24-2025 15:57-0400 Systolic blood pressure 138 mm[Hg] Gil Dolce DPM FACFAS Work Phone: [facility] 03-15-2025 15:11-0400 Body height 160 cm Gil Dolce DPM FACFAS Work Phone: [facility] 03-15-2025 15:11-0400 Body mass index (BMI) [Ratio] 37.73 kg/m2 Gil Dolce DPM FACFAS Work Phone: [facility] 03-15-2025 15:11-0400 Body weight 96.62 kg Gil Dolce DPM FACFAS Work Phone: [facility] 03-15-2025 15:11-0400 Diastolic blood pressure 72 mm[Hg] Gil Dolce DPM FACFAS Work Phone: [facility] 03-15-2025 15:11-0400 Heart rate 77 /min Gil Dolce DPM FACFAS Work Phone: [facility] 03-15-2025 15:11-0400 Systolic blood pressure 146 mm[Hg] Gil Dolce DPM FACFAS Work Phone: [facility] 11-21-2024 15:05-0400 Body mass index (BMI) [Ratio] 32.52 kg/m2 Tyler Draper MD Work Phone: [facility] 11-21-2024 15:05-0400 Body temperature 97.7 [degF] Tyler Draper MD Work Phone: [facility] 11-21-2024 15:05-0400 Body weight 97 kg Tyler Draper MD Work Phone: [facility] 11-21-2024 15:05-0400 Diastolic blood pressure 65 mm[Hg] Tyler Draper MD Work Phone: [facility] 11-21-2024 15:05-0400 Heart rate 83 /min Tyler Draper MD Work Phone: [facility] 11-21-2024 15:05-0400 Respiratory rate 24 /min Tyler Draper MD Work Phone: [facility] 11-21-2024 15:05-0400 SaO2% (BldA) [Mass fraction] 90 % Tyler Draper MD Work Phone: [facility] 11-21-2024 15:05-0400 Systolic blood pressure 122 mm[Hg] Tyler Draper MD Work Phone: [facility] 06-20-2024 08:42-0500 Body height 162.6 cm [...] 33.83 kg/m2 Tyler Draper MD Work Phone: [facility] 06-06-2024 13:36-0400 Body temperature 97 [degF] Tyler Draper MD Work Phone: [facility] 06-06-2024 13:36-0400 Body weight 100.9 kg Tyler Draper MD Work Phone: [facility] 06-06-2024 13:36-0400 Diastolic blood pressure 59 mm[Hg] Tyler Draper MD Work Phone: [facility] 06-06-2024 13:36-0400 Heart rate 74 /min Tyler Draper MD Work Phone: [facility] 06-06-2024 13:36-0400 Respiratory rate 18 /min Tyler Draper MD Work Phone: [facility] 06-06-2024 13:36-0400 SaO2% (BldA) [Mass fraction] 90 % Tyler Draper MD Work Phone: [facility] 06-06-2024 13:36-0400 Systolic blood pressure 109 mm[Hg] Tyler Draper MD Work Phone: [facility] 06-01-2024 16:00-0400 Diastolic blood pressure 64 mm[Hg] MD Pito Patterson Work Phone: [facility] 06-01-2024 16:00-0400 Heart rate 75 /min MD Pito Patterson Work Phone: [facility] 06-01-2024 16:00-0400 Inhaled oxygen concentration 4 % MD Pito Patterson Work Phone: [facility] 06-01-2024 16:00-0400 Respiratory rate 20 /min MD Pito Patterson Work Phone: [facility] 06-01-2024 16:00-0400 SaO2% (BldA) [Mass fraction] 99 % MD Pito Patterson Work Phone: [facility] 06-01-2024 16:00-0400 Systolic blood pressure 121 mm[Hg] MD Pito Patterson Work Phone: [facility] 06-01-2024 13:16-0400 Inhaled oxygen flow rate 4 L/min MD Pito Patterson Work Phone: [facility] 06-01-2024 13:02-0400 Body height 162.56 cm MD Pito Patterson Work Phone: [facility] 06-01-2024 13:02-0400 Body temperature 97.5 [degF] MD Pito Patterson Work Phone: [facility] 06-01-2024 13:02-0400 Body weight 98.88 kg MD Pito Patterson Work Phone: [facility] 05-31-2024 14:31-0400 Body height 162.6 cm Connor [...] Pressure Location Oni MCKEON [facility] 04-22-2024 09:41-0400 Body temperature 98.6 [degF] Oni MCKEON [facility] 04-22-2024 09:41-0400 Diastolic blood pressure 52 mm[Hg] Oni MCKEON [facility] 04-22-2024 09:41-0400 Heart rate 59 /min Oni MCKEON [facility] 04-22-2024 09:41-0400 Respiratory rate 16 /min Oni MCKEON [facility] 04-22-2024 09:41-0400 Systolic blood pressure 102 mm[Hg] Oni MCKEON [facility] 04-19-2024 14:18-0400 Body height 172.7 cm Tyler Draper MD Work Phone: [facility] 04-19-2024 14:18-0400 Body mass index (BMI) [Ratio] 33.16 kg/m2 Tyler Draper MD Work Phone: [facility] 04-19-2024 14:18-0400 Body temperature 96.8 [degF] Tyler Draper MD Work Phone: [facility] 04-19-2024 14:18-0400 Body weight 98.9 kg Tyler Draper MD Work Phone: [facility] 04-19-2024 14:18-0400 Diastolic blood pressure 66 mm[Hg] Tyler Draper MD Work Phone: [facility] 04-19-2024 14:18-0400 Heart rate 85 /min Tyler Draper MD Work Phone: [facility] 04-19-2024 14:18-0400 Respiratory rate 20 /min Tyler Draper MD Work Phone: [facility] 04-19-2024 14:18-0400 SaO2% (BldA) [Mass fraction] 92 % Tyler Draper MD Work Phone: [facility] 04-19-2024 14:18-0400 Systolic blood pressure 120 mm[Hg] Tyler Draper MD Work Phone: [facility] 03-09-2023 10:50-0400 Blood Pressure Location Oni MCKEON [facility] 03-09-2023 10:50-0400 Diastolic blood pressure 70 mm[Hg] Oni MCKEON [facility] 03-09-2023 10:50-0400 Heart rate 71 /min Oni MCKEON [facility] 03-09-2023 10:50-0400 Respiratory rate 16 /min nOi MCKEON [facility] 03-09-2023 10:50-0400 Systolic blood pressure 109 mm[Hg] Oni MCKEON [facility] 01-09-2022 13:00-0400 Body height 172.7 cm Hosea Herrera MD Work Phone: [facility] 01-09-2022 13:00-0400 Body temperature 97.81 [degF] Hosea Herrera MD Work Phone: [facility] 01-09-2022 13:00-0400 Body weight 100.61 kg Hosea Herrera MD Work Phone: [facility] 01-09-2022 13:00-0400 Diastolic blood pressure 68 mm[Hg] Hosea Herrera MD Work Phone: [facility] 01-09-2022 13:00-0400 Heart rate 93 /min Hosea Herrera MD Work Phone: [facility] 01-09-2022 13:00-0400 Respiratory rate 18 /min Hosea Herrera MD Work Phone: [facility] 01-09-2022 13:00-0400 SaO2% (BldA) [Mass fraction] 93 % Hosea Herrera MD Work Phone: [facility] 01-09-2022 13:00-0400 Systolic blood pressure 95 mm[Hg] Hosea Herrera MD Work Phone: [facility] 11-19-2021 10:19-0400 Blood Pressure Location Romeo Vidal Jr. [facility] 11-19-2021 10:19-0400 Diastolic blood pressure 60 mm[Hg] Romeo Vidal Jr. [facility] 11-19-2021 10:19-0400 Heart rate 80 /min Romeo Vidal Jr. [facility] 11-19-2021 10:19-0400 Respiratory rate 16 /min Romeo Young Escobar. [facility] 11-19-2021 10:19-0400 Systolic blood pressure 113 mm[Hg] Romeo Young Manriquez [facility] Encounters Encounter Date Encounter Type Care Provider Facility Start: 02-15-2026 ambulatory Marlys Olivia Facility: [facility] Start: 05-26-2025 End: 05-26-2025 ambulatory TYLER DRAPER Facility:[facility] Start: 05-24-2025 End: 05-24-2025 ambulatory GIL ANGULO Not Available Start: 05-24-2025 End: 05-24-2025 Patient encounter procedure Gil Angulo DPM FACFAS Work Phone: [facility] Comment on above: Onychomycosis (Prima ry Dx); Pain in left toe(s); Pain in right toe(s) Start: 05-24-2025 End: 05-24-2025 Bamboo flowsheet Gil Angulo DPM FACFAS Work Phone: [facility] Start: 05-24-2025 End: 05-24-2025 Bamboo flowsheet Gli Angulo DPM FACFAS Work Phone: [facility] [place] Start: 05-23-2025 End: 05-23-2025 ambulatory CONNOR CARRERA [facility] Start: 04-24-2025 End: 04-24-2025 ambulatory Oni MCKEON Facility:[facility] Start: 04-24-2025 End: 04-24-2025 Patient encounter procedure Oni MCKEON [facility] Start: 03-15-2025 End: 03-15-2025 ambulatory GLI ANGULO Not Available Start: 03-15-2025 End: 03-15-2025 Office outpatient new 30 minutes Gil Stacy Dolce DPM FACFAS Work Phone: [facility] Comment on above: Venous insufficiency (chronic) (peripheral) (Primary Dx); Onychomycosis; Pain in left toe(s); Pain in right toe(s) Start: 03-15-2025 End: 03-15-2025 Bamboo flowsheet Gil Stacy Bonillace DPM FACFAS Work Phone: [facility] Start: 03-15-2025 End: 03-15-2025 Bamboo flowsheet Gil Stacy Dolce DPM FACFAS Work Phone: [facility] Start: 03-07-2025 ambulatory Marlys L Corwin Facility: [id number] Start: 02-27-2025 ambulatory [facility] Start: 02-16-2025 End: 02-16-2025 Lab Drop off Marlys L Corwin [facility] Start: 02-16-2025 End: 02-16-2025 ambulatory Marlys L Corwin [place] Start: 02-15-2025 End: 02-15-2025 ambulatory Marlys L Corwin Facility:[facility] [place] Start: 02-14-2025 ambulatory Pito Patterson Facility :[facility] [place] Start: 02-02-2025 End: 02-02-2025 Bamboo flowsheet Crys Taylor PA Work Phone: [facility] Start: 02-02-2025 End: 02-02-2025 Bamboo flowsheet Crys Taylor PA Work Phone: [facility] Start: 02-02-2025 End: 02-02-2025 Office outpatient visit 25 minutes Crys Taylor PA Work Phone: [facility] Comment on above: Melanocytic nevus of trunk (Primary Dx); History of SCC (squamous cell carcinoma) of skin; Seborrheic keratosis; Actinic keratosis; Ayala angioma; Other seborrheic dermatitis Start: 02-02-2025 End: 02-02-2025 ambulatory CRYSKatey GONZALEZJESSE Not Available Start: 12-21-2024 ambulatory [facility] Start: 11-24-2024 End: 11-24-2024 Follow-up encounter Tyler Draper MD Work Phone: Hematology/Oncology Comment on above: TSH results Start: 11-24-2024 End: 11-24-2024 ambulatory Pito Patterson Facility:[facility] Start: 11-21-2024 End: 11-21-2024 ambulatory TYLER DRAPER Facility:[facility] Start: 11-21-2024 End: 11-21-2024 Office outpatient visit 25 minutes Tyler Draper MD Work Phone: Hematology/Oncology Comment on above: 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); History of prostate cancer; Acquired hypothyroidism Start: 11-15-2024 End: 11-15-2024 ambulatory TYLER DRAPER Facility:[facility] Start: 11-15-2024 End: 11-15-2024 Subsequent hospital visit by physician Arrival Time Radiology Work Phone: [facility] Comment on above: Localized enlarged l ymph nodes [R59.0] Start: 10-21-2024 End: 10-21-2024 ambulatory [facility] Start: 10-17-2024 End: 10-28-2024 ambulatory Pito Patterson Facility:[id number] Start: 10-14-2024 End: 10-14-2024 Telephone encounter Tyler Draper MD Work Phone: Hematology/Oncology Comment on above: Orders Start: 08-25-2024 End: 08-25-2024 ambulatory Pito Patterson Facility:[facility] Start: 08-04-2024 End: 08-04-2024 ambulatory CRYS TAYLOR Not Available Start: 08-04-2024 End: 08-04-2024 Office outpatient visit 15 minutes Crys Taylor PA Work Phone: [facility] Comment on above: Capillary angioma (P rimary Dx); Melanocytic nevus of trunk; Seborrheic keratosis; Actinic keratosis; History of SCC (squamous cell carcinoma) of skin; Lentigo simplex Start: 07-13-2024 End: 07-13-2024 ambulatory MARKUS CERNA Facility:[facility] Start: 06-20-2024 End: 06-20-2024 Bamboo flowsheet Connor Crawley DO Work Phone: [facility] [place] Start: 06-20-2024 End: 06-20-2024 Bamboo flowsheet Connor Crawley DO Work Phone: [facility] [place] Start: 06-20-2024 End: 06-20-2024 Office outpatient visit 15 minutes Connor Crawley DO Work Phone: [facility] [place] Comment on above: Squamous cell carcin aris [...] [facility] [place] Start: 06-01-2024 End: 06-01-2024 ambulatory MD Pito Patterson Work Phone: [facility] Work Phone: Start: 05-31-2024 End: 05-31-2024 Office outpatient new 60 minutes Connor Crawley DO Work Phone: [facility] Comment on above: 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); 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 Start: 05-31-2024 End: 05-31-2024 ambulatory CONNOR CRAWLEY Not Available Start: 05-31-2024 End: 05-31-2024 Bamboo flowsheet Connor Crawley DO Work Phone: [facility] Start: 05-31-2024 End: 05-31-2024 Bamboo flowsheet Connor Crawley DO Work Phone: [facility] Start: 05-17-2024 End: 05-17-2024 ambulatory Pito Patterson Facility:[facility] Start: 05-03-2024 End: 05-03-2024 Bamboo flowsheet Crys Taylor PA Work Phone: [facility] Start: 05-03-2024 End: 05-03-2024 Bamboo flowsheet Crys Taylor PA Work Phone: [facility] Start: 05-03-2024 End: 05-03-2024 Office outpatient new 20 minutes Crys Gonzalezerendira PA Work Phone: [facility] Comment on above: Hemangioma of skin a nd subcutaneous tissue (Primary Dx); Neoplasm of unspecified behavior of bone, soft tissue, and skin; Seborrheic keratosis; Actinic keratosis Start: 04-29-2024 End: 04-29-2024 Subsequent hospital visit by physician Arrival Time Radiology Work Phone: [facility] Comment on above: History of lymphoma [Z85.72] Start: 04-22-2024 End: 04-22-2024 Patient encounter procedure Oni MCKEON [facility] Start: 04-19-2024 End: 04-19-2024 ambulatory Tyler Draper MD Work Phone: Hematology/Oncology Comment on above: 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); History of lymphoma; Lymph node enlargement; Skin lesion of face Start: 04-19-2024 End: 04-19-2024 Patient encounter procedure Tyler Draper MD Work Phone: Hematology/Oncology Start: 04-19-2024 End: 04-26-2024 Telephone encounter [facility]per MD [facility] Comment on above: Future Appointment Start: 02-02-2024 Telephone encounter Valerie Wallace Hematology/Oncology Comment on above: Results Start: 10-19-2023 End: 10-19-2023 Lab Drop off Pito Patterson [facility] Start: 03-31-2023 End: 03-31-2023 Patient encounter procedure Oni MCKEON [facility] Start: 03-09-2023 End: 03-09-2023 Patient encounter procedure Oni MCKEON [facility] Start: 01-26-2023 End: 01-26-2023 Lab Drop off Marlys Olivia [facility] Start: 08-05-2022 Telephone encounter Aby Hernandez RN Hematology/Oncology Comment on above: Results Start: 07-24-2022 Telephone encounter Tyler cadena MD Work Phone: [facility] Comment on above: Appointment Start: [...] with patient Hosea Herrera MD Work Phone: [place] Start: 01-09-2022 End: 01-09-2022 ambulatory Hosea Herrera [...] procedure Romeo Vidal Jr. [facility] Start: 09-24-2021 End: 09-25-[address] [...] Clinician Start: 02-02-2025 CRYOTHERAPY SKIN LESION Crys HERNANDEZ Work Phone: Start: 11-15-2024 Ct thorax w/contrast material Tyler Draper MD Work Phone: Start: 11-15-2024 Blood count complete auto&auto difrntl wbc Arabella Nalini CALL CENTER RECEPTIONIST.MATERIAL CONTROL ANALYST Work Phone: Start: 08-04-2024 CRYOTHERAPY SKIN LESION Crys HERNANDEZ Work Phone: Start: 06-01-2024 Excision of lesion of cheek MD Pito Patterson Work Phone: Start: 05-03-2024 CRYOTHERAPY SKIN LESION Crys HERNANDEZ Work Phone: Start: 05-03-2024 End: 05-03-2024 SKIN / NAIL BIOPSY Crys HERNANDEZ Work Phone: Start: 04-29-2024 Gluc bld gluc mntr d ev cleared fda spec home use [facility] Provider Start: 03-31-2023 Cystoscopy Oni DURAN Start: 01-09-2022 Adult depression scr eening assessment Hosea Herrera MD Work Phone: Start: 01-07-[address] WILL LINDA Comment on above: Performed By: #### P SAD ####[place] [id number] Nichols Start: 06-28-2020 INSERT PACE. DUAL CH AM IN CHEST SUBCU/FASCIA, OPEN CONNOR CARRERA Start: 06-28-2020 INSERTION OF PACEMAK ER LEAD INTO R VENTRICLE, PERC APPROACH CONNOR CARRERA Start: 06-28-2020 INSERTION OF PACEMAK ER LEAD INTO RIGHT ATRIUM, PERC APPROACH CONNOR CARRERA Start: 06-27-2020 INTRODUCTION OF OTHE R GAS INTO RESP TRACT, VIA OPENING MYA BHAKTA Start: 08-17-2019 Cardiac pacemaker, stacy booker (physical [...] DTaP,Tdap,Td Vaccine (2 - Td or Tdap) [facility] Start: 11-16-2027 Diabetes Screening Diabetes Screening [facility] Start: 04-19-2027 Diabetes Screening Diabetes Screening [facility] Start: 01-20-2027 Diabetes Screening Diabetes Screening [facility] Start: 08-03-2025 End: 08-03-2025 Patient encounter procedure [facility] Start: 08-02-2025 End: 08-02-2025 Patient encounter procedure 08/02/2025 3:00 PM EST Procedure Visit [facility] [address] [place] [address] Gil Angulo, DPM FACFAS [address] [place] [address] [facility] Start: 07-18-2025 DIABETES SCREEN DIABETES SCREEN [facility] Start: 05-29-2025 End: 05-29-2025 Follow-up encounter 05/29/2025 3:00 PM EDT Visit (SP) Office Hematology/Oncology [address] [place] [address] [place] [address] Ana M Schneider, DOMINIQUE.MATERIAL CONTROL ANALYST [address] [place] [address] [place] [address] 6 month follow up / BRM pt Hematology/Oncology Comment on above: 6 month follow up / BRM pt Start: 05-24-2025 End: 05-24-2025 Patient encounter procedure 05/24/2025 3:10 PM EDT Procedure Visit [facility] [address] [place] [address] Gil Angulo, DPM FACFAS [address] [place] [address] [facility] Start: 05-22-2025 End: 05-22-2025 Patient encounter procedure 05/22/2025 3:30 PM EDT Office Visit [facility] [address] [place] [address] 6 month lab [facility] Comment on above: 6 month lab Start: 04-17-2025 Influenza vaccination Influenza Vaccine (#1) [facility] Start: 02-02-2025 End: 02-02-2025 Patient encounter procedure [facility] Comment on above: Arrived Start: 01-09-2025 DIABETES SCREEN DIABETES SCREEN [facility] Start: 11-21-2024 End: 11-21-2024 Follow-up encounter 11/21/2024 3:20 PM EDT Visit (SP) Office Hematology/Oncology [address] [place] [address] Tyler Draper MD [address] [place] [address] 6 Month follow up with lab Hematology/Oncology Comment on above: 6 Month follow up with lab Start: 11-21-2024 End: 11-21-2024 Patient encounter procedure 11/21/2024 3:00 PM EDT Office Visit [facility] [address] [place] [address] 6 Month follow up with lab [facility] Comment on above: 6 Month follow up with lab Start: 11-15-2024 End: 02-14-2025 CBC W Auto Differential panel - Blood COMPLETE BLOOD COUNT AND DIFFERENTIAL Lab Routine Diffuse large B-cell lymphoma, unspecified body region (HCC) Expected: 11/15/2024 (Approximate), Expires: 02/14/2025 [facility] Comment on above: Expected: 11/15/2024 (Approximate), Expi res: 02/14/2025 Start: 11-15-2024 End: 02-14-2025 Comprehensive metabolic 2000 panel - Serum or Plasma COMPREHENSIVE METABOLIC PANEL Lab Routine Diffuse large B-cell lymphoma, unspecified body region (HCC) Expected: 11/15/2024 (Approximate), Expires: 02/14/2025 [facility] Work Phone: Comment on above: Expected: 11/15/2024 (Approximate), Expi res: 02/14/2025 Start: 11-15-2024 End: 07-10-2025 CT Chest W contrast IV CT CHEST W IVCON Radiology Routine Localized enlarged lymph nodes Expected: 11/15/2024, Expires: 07/10/2025 [facility] Work Phone: Comment on above: Expected: 11/15/2024, Expires: Start: 11-15-2024 End: 02-14-2025 MONOCLONAL PROTEIN, SERUM (BLOOD) [facility] Comment on above: Expected: 11/15/2024 (Approximate), Expi res: 02/14/2025 Start: 11-15-2024 End: 02-14-2025 PROTEIN ELECTROPHORESIS SERUM W/INTERP [facility] Comment on above: Expected: 11/15/2024 (Approximate), Expi res: 02/14/2025 Start: 11-15-2024 End: 11-15-2024 Patient encounter procedure Radiology Pet CT Comment on above: CT Chest with IVC Start: 11-09-2024 Covid-19 Vaccine (7 - Pfizer risk season) Covid-19 Vaccine (7 - Pfizer risk season) [facility] Start: 08-17-2024 Advance Directive Discussion Advance Directive Discussion [facility] Start: 08-04-2024 End: 08-04-2024 Patient encounter procedure 08/04/2024 1:00 PM EST Office Visit [facility] [address] [place] [address] Crys Taylor PA [address] [place] [address] [facility] Start: 07-07-2024 Covid-19 Vaccine () Covid-19 Vaccine () [facility] Start: 06-28-2024 End: 06-28-2024 Patient encounter procedure 06/28/2024 1:00 PM EST Office Visit [facility] [address] [place] [address] Chiki Malone MD [address] [place] [address] [facility] Start: 06-20-2024 End: 06-20-2024 Patient encounter procedure 06/20/2024 8:45 AM EST Office Visit [facility] [place] [address] [place] [address] Connor Crawley DO [address] [place] [address] Arrived [facility] [place] Comment on above: Arrived Start: 06-17-2024 End: 06-17-2024 Patient encounter procedure 06/17/2024 1:15 PM EDT Office Visit [facility] [place] [address] [place] [address] Connor Crawley DO [address] [place] [address] [facility] [place] Start: 06-09-2024 End: 06-09-2024 Patient encounter procedure [facility] [place] Comment on above: Arrived Start: 06-06-2024 End: 06-06-2024 Follow-up encounter 06/06/2024 1:45 PM EDT Visit (SP) Office Hematology/Oncology [address] [place] [address] Tyler Draper MD [address] [place] [address] 6 week follow up Hematology/Oncology Comment on above: 6 week follow up Start: 06-06-2024 End: 06-06-2024 Patient encounter procedure 06/06/2024 1:30 PM EDT Office Visit [facility] [address] [place] [address] 6 week follow up [facility] Comment on above: 6 week follow up Start: 06-01-2024 [facility] Start: 05-31-2024 End: 05-31-2024 Patient encounter procedure 05/31/2024 2:30 PM EDT Office Visit [facility] [address] [place] [id number] Connor Crawley S, DO [address] [place] [address] 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 [facility] Comment on above: Squamous cell cancer of skin of left vibha ek Start: 05-03-2024 End: 05-03-2024 Patient encounter procedure 05/03/2024 11:00 AM EDT Office Visit [facility] [address] [place] [address] Crys Taylor PA [address] [place] [address] Arrived [facility] Comment on above: Arrived Start: 04-29-2024 End: 04-29-2024 Patient encounter procedure 04/29/2024 1:30 PM EDT Appointment Radiology Pet [facility] [address] [place] [address] Comment on above: Pet scan Start: 04-19-2024 End: 04-19-2024 ambulatory 04/19/2024 2:30 PM EDT Visit (SP) Office Hematology/Oncology [address] [place] [address] Tyler Draper MD [address] [place] [address] 6 month lab Hematology/Oncology Comment on above: 6 month lab Start: 04-19-2024 End: 04-19-2024 Patient encounter procedure 04/19/2024 2:15 PM EDT Office Visit [facility] [address] [place] [address] 6 month lab [facility] Comment on above: 6 month lab Start: 04-19-2024 End: 07-19-2024 MONOCLONAL PROTEIN, SERUM (BLOOD) [facility] Comment on above: Expected: 04/19/2024, Expires: 4 Start: 04-19-2024 End: 07-19-2024 PROT ELECT SERUM WITH CARSON AND INTERP [facility] Work Phone: Comment on above: Expected: 04/19/2024, Expires: 4 Start: 04-17-2024 Covid-19 Vaccine ( season) Covid-19 Vaccine ( season) [facility] Start: 04-17-2024 Influenza vaccination Influenza Vaccine (#1) [facility] Start: 08-27-2023 Covid-19 Vaccine ( season) Covid-19 Vaccine ( season) [facility] Start: 08-17-2023 Advance Directive Discussion Advance Directive Discussion [facility] Start: 08-17-2023 Behavioral Health Screening Behavioral Health Screening [facility] Start: 01-09-2023 Adult depression screening assessment DEPRESSION SCREENING [facility] Start: 07-18-2022 End: 09-17-2022 CBC panel - Blood by Automated count CBC Lab Routine MGUS (monoclonal gammopathy of unknown significance) Expected: 07/18/2022 (Approximate), Expires: 09/17/2022 [facility] Work Phone: Comment on above: Expected: 07/18/2022 (Approximate), Expi res: 09/17/2022 Start: 07-18-2022 End: 09-17-2022 Comprehensive metabolic 2000 panel - Serum or Plasma COMP METABOLIC PANEL Lab Routine MGUS (monoclonal gammopathy of unknown significance) Expected: 07/18/2022 (Approximate), Expires: 09/17/2022 [facility] Work Phone: Comment on above: Expected: 07/18/2022 (Approximate), Expi res: 09/17/2022 Start: 07-18-2022 End: 09-17-2022 MONOCLONAL PROTEIN, SERUM (BLOOD) MONOCLONAL PROTEIN, SERUM (BLOOD) Lab Routine MGUS (monoclonal gammopathy of unknown significance) Expected: 07/18/2022 (Approximate), Expires: 09/17/2022 [facility] Work Phone: Comment on above: Expected: 07/18/2022 (Approximate), Expi res: 09/17/2022 Start: 07-18-2022 End: 09-17-2022 PROTEIN ELECTROPHORESIS SERUM W/INTERP PROTEIN ELECTROPHORESIS SERUM W/INTERP Lab Routine MGUS (monoclonal gammopathy of unknown significance) Expected: 07/18/2022 (Approximate), Expires: 09/17/2022 [facility] Work Phone: Comment on above: Expected: 07/18/2022 (Approximate), Expi res: 09/17/2022 Start: 05-06-2022 COVID-19 VACCINE (5 - Booster for Pfizer series) COVID-19 VACCINE (5 - Booster for Pfizer series) [facility] Start: 04-17-2022 Influenza vaccination INFLUENZA (#1) [facility] Start: 09-25-2021 COVID-19 VACCINE (4 - Booster for Pfizer series) COVID-19 VACCINE (4 - Booster for Pfizer series) [facility] Start: 08-17-2021 ADVANCE DIRECTIVE DISCUSSION ADVANCE DIRECTIVE DISCUSSION [facility] Start: 08-17-2021 DEPRESSION ASSESSMENT DEPRESSION ASSESSMENT [facility] Start: 2007 RSV Vaccine (1 - 1-dose 60+ series) RSV Vaccine (1 - 1-dose 60+ series) [facility] Start: 1997 SHINGRIX VACCINE (1 of 2) SHINGRIX VACCINE (1 of 2) [facility] Start: 1992 COLOGUARD (FIT-DNA) COLOGUARD (FIT-DNA) [facility] Start: 1992 Colonoscopy COLONOSCOPY [facility] Start: 1992 COLORECTAL CANCER SCREENING COLORECTAL CANCER SCREENING [facility] Start: [address] COLONOGRAPHY [facility] Start: 1992 FECAL OCCULT BLOOD FECAL OCCULT BLOOD [facility] Start: 1992 SIGMOIDOSCOPY SIGMOIDOSCOPY [facility] Start: 1982 LIPID SCREEN LIPID SCREEN [facility] Start: 1966 SHINGRIX VACCINE (1 of 2) SHINGRIX VACCINE (1 of 2) [facility] Start: 1966 Urine microalbumin profile DTAP,TDAP,TD (1 - Tdap) [facility] Start: 1965 Anxiety Screening Anxiety Screening [facility] Start: 1965 Depression Screening Depression Screening [facility] Start: 1965 HEPATITIS C SCREENING HEPATITIS C SCREENING [facility] Start: 1965 Hepatitis C screening Hepatitis C Screening [facility] Start: 1945 ABDOMINAL AORTIC ANEURYSM SCREENING ABDOMINAL AORTIC ANEURYSM SCREENING [facility] Start: 1945 Medicare Annual Wellness (AWV) Medicare Annual Wellness (AWV) [facility] CBC W Auto Different ial panel - Blood CBC + DIFF Lab Routine B12 deficiency Diffuse large B-cell lymphoma, unspecified body region (HCC) 01/09/2022 1:40 PM EDT [facility] Work Phone: Dermatopathology exam Dermatopat hology exam Pathology and Cytology Timed Neoplasm of unspecified behavior of bone, soft tissue, and skin Release Upon Ordering for 1 Occurrences starting 05/03/2024 [facility] [employer] Work Phone: Comment on above: Release Upon Ordering for 1 Occurrences starting 05/03/2024 End: 11-15-2024 IMMUNOFIXATION SCREEN, SERUM [facility] Comment on above: Once for 1 Occurrences starting 11/16/19 25 until 11/15/2024 End: 11-15-2024 IMMUNOGLOBULINS,IGG,IGA,I GM [facility] Comment on above: Once for 1 Occurrences starting 11/16/19 until 11/15/2024 End: 11-15-2024 KAPPA/ARDON,FREE,SER [facility] Comment on above: Once for 1 Occurrences starting 11/16/19 until 11/15/2024 Patient Education Know your Meds [facility] Work Phone: Patient referral [facility] Work Phone: End: 05-19-2025 PET+CT Guidance for localization of tumor of Skull base to mid-thigh-- W 18F-FDG IV NM PET/CT SKULL-THIGH SUBSEQUENT Radiology Routine History of lymphoma Lymph node enlargement 1 Occurrences starting 04/19/2024 until 05/19/2025 [facility] Comment on above: 1 Occurrences starting 04/19/2024 until 05/19/2025 PET+CT Guidance for localization of tumor of Skull base to mid-thigh-- W 18F-FDG IV NM PET/CT SKULL-THIGH SUBSEQUENT Radiology Routine History of lymphoma Lymph node enlargement 04/29/2024 3:28 PM EDT [facility] Work Phone: End: 11-15-2024 PROTEIN ELECTROPHORESIS SERUM (P) [facility] Work Phone: Comment on above: Once for 1 Occurrences starting 11/16/19 until 11/15/2024 [facility] Immunizations Immunization Date Immunization Notes Care Provider [facility] 05-12-2024 influenza, high dose seasonal, preservative-free Connor Crawley DO Work Phone: [facility] 05-12-2024 SARS-CoV-2 mRNA (tozinameran 5y-11y) vaccine Marlys Olivia [facility] Comment on above: Result Comment: COvi d 19 mRNA, LN-S pfizer trus sucrose 05-12-2024 influenza virus vaccine, unspecified formulation Connor Crawley DO Work Phone: [facility] 03-21-2024 canakinumab Oni MCKEON [facility] Comment on above: Result Comment: RSV 03-21-2024 respiratory syncytia l virus (RSV) vaccine, adjuvanted (AREXVY) Tyler rDaper MD Work Phone: [facility] 03-21-2024 RSV vaccine preF3, recombinant Marlys Olivia [facility] 07-02-2023 SARS-CoV-2 mRNA (tozinameran 5y-11y) vaccine Pito Patterson [facility] Comment on above: Result Comment: covi d 19 eneida sucrose [facility] 05-11-2023 influenza, high dose seasonal, preservative-free Pito Patterson [facility] 05-11-2023 influenza virus vaccine, unspecified formulation Tyler Draper MD Work Phone: [facility] 03-11-2022 SARS-CoV-2 mRNA (drcusvduolq-uocx-xogru se) vaccine Marlys Corwin [facility] 06-25-2021 SARS-CoV-2 (COVID-19 ) mRNA BNT-162b2 vax Marlys Olivia [facility] 05-24-2021 influenza (HD-IIV4) vaccine, age 65+ yr, high dose, quadrivalent, PF (FLUZONE HIGH-DOSE) Tyler Draper MD Work Phone: [facility] 05-24-2021 influenza virus vaccine, unspecified formulation Mralys Olivia [facility] 11-13-2020 COVID-19 vaccine, ag e 12+ yr (PFIZER-BIONTECH - PURPLE TOP) Hosea Herrera MD Work Phone: [facility] 10-22-2020 COVID-19 vaccine, ag e 12+ yr ([employer]-BION[employer] - PURPLE TOP) Hosea Herrera MD Work Phone: [facility] 07-24-2020 zoster vaccine recombinant Marlys Corwin [facility] 07-22-2020 zoster vaccine recombinant Tyler Draper MD Work Phone: [facility] 05-09-2020 influenza (HD-IIV4) vaccine, age 65+ yr, high dose, quadrivalent, PF (FLUZONE HIGH-DOSE) Tyler Draper MD Work Phone: [facility] 05-09-2020 influenza virus vaccine, unspecified formulation Marlys Corwin [facility] 05-09-2020 tetanus toxoid, redu juvencio diphtheria toxoid, and acellular pertussis vaccine, adsorbed Marlys Corwin [facility] 05-09-2020 zoster vaccine recombinant Marlys Corwin [facility] 04-16-2019 influenza virus vaccine, unspecified formulation Marlys Corwin [facility] 04-16-2019 Seasonal trivalent influenza vaccine, adjuvanted, preservative free Tyler Draper MD Work Phone: [facility] 05-25-2018 influenza nasal, unspecified formulation Tyler Draper MD Work Phone: [facility] 05-25-2018 influenza virus vaccine, unspecified formulation Marlys Corwin [facility] 05-25-2018 influenza, injectabl e, quadrivalent, preservative free Hosea Herrera MD Work Phone: [facility] 05-25-2018 pneumococcal polysaccharide vaccine, 23 valent Hosea Herrera MD Work Phone: [facility] 04-26-2018 influenza nasal, unspecified formulation Tyler Draper MD Work Phone: [facility] 04-26-2018 influenza virus vaccine, unspecified formulation Marlys Corwin [facility] 04-26-2018 influenza, high dose seasonal, preservative-free Hosea Herrera MD Work Phone: [facility] 04-26-2018 pneumococcal polysaccharide vaccine, 23 valent Hosea Herrera MD Work Phone: [facility] 08-04-2017 influenza nasal, unspecified formulation Tyler Draper MD Work Phone: [facility] 08-04-2017 influenza virus vaccine, unspecified formulation Marlys Appiahab [facility] 08-04-2017 influenza, high dose seasonal, preservative-free Hosea Herrera MD Work Phone: [facility] 08-04-2017 pneumococcal conjuga te vaccine, 13 valent Hosea Herrera MD Work Phone: [facility] influenza vaccine qs 240 mcg, Patients 65 years and older,, PF, (FLUZONE HIGHDOSE QUAD 20-21 PF) 240 mcg/0.7 mL injection Hosea Herrera MD Work Phone: [facility] Comment on above: Fluzone High-Dose Qu ad 2020-21 (PF) 240 mcg/0.7 mL IM syringe PHARMACY ADMINISTERED influenza vaccine qs 240 mcg, Patients 65 years and older,, PF, (FLUZONE HIGHDOSE QUAD 20-21 PF) 240 mcg/0.7 mL injection Tyler Draper MD Work Phone: [facility] Comment on above: Fluzone High-Dose Qu ad 2020-21 (PF) 240 mcg/0.7 mL IM syringe PHARMACY ADMINISTERED influenza vaccine qs 240 mcg, Patients 65 years and older,, PF, (FLUZONE HIGHDOSE QUAD 20-21 PF) 240 mcg/0.7 mL injection Valerie Mayes RN [facility] influenza vaccine qs 240 mcg, Patients 65 years and older,, PF, (FLUZONE HIGHDOSE QUAD 20-21 PF) 240 mcg/0.7 mL injection Tyler Draper MD Work Phone: [facility] influenza vaccine qs 240 mcg, Patients 65 years and older,, PF, (FLUZONE HIGHDOSE QUAD 20-21 PF) 240 mcg/0.7 mL injection Tyler Draper MD Work Phone: [facility] influenza vaccine qs 240 mcg, Patients 65 years and older,, PF, (FLUZONE HIGHDOSE QUAD 20-21 PF) 240 mcg/0.7 mL injection Arrival Radiology Work Phone: [facility] Payers Date Payer Category Payer Medicare (Managed Care) 1.2. [id number] 2022 Private Health Insurance [id number] 2014 Medicare AETNA MEDICARE A ETNA MEDICARE PPO [id number] 2014-Present [phone] [address] [place] [address] PPO [id number] 2012 Medicare [id number]. [id number] 2012 Medicare [id number] 1959 Medicare [id number] 1959 Private Health Insurance [facility] [id number] Self-pay 1947 Unknown [id number] 2.16.840.1.304367.3.579.2. 647 1947 Unknown [id number] 2.16.840.1.074056.3.579.2. 593 1947 Unknown [id number] 2.16.840.1.132079.3.579.2. 593 1947 Unknown [id number] 2.16.840.1.970563.3.579.2. 593 1947 Unknown [id number] 2.16.840.1.498961.3.579.2. 593 1947 Unknown [id number] 2.840.1.346591.3.579.2. 593 1947 Unknown [id number] 2.840.1.951821.3.579.2. 593 1947 Unknown [id number] 2.840.1.039540.3.579.2. 593 1947 Unknown [id number] 2.840.1.745853.3.579.2. 593 1947 Unknown [id number] 2.840.1.640957.3.579.2. 593 1947 Unknown [id number] 2.840.1.435299.3.579.2. 593 1947 Unknown [id number] 2.840.1.780675.3.579.2. 593 1947 Unknown [id number] 2.840.1.151056.3.579.2. 593 1947 Unknown [id number] 2.840.1.133014.3.579.2. 593 1947 Unknown [id number] 2.840.1.109782.3.579.2. 593 1947 Unknown [id number] 2.840.1.828738.3.579.2. 593 1947 Unknown [id number] 2.840.1.298958.3.579.2. 593 1947 Unknown [id number] 2.840.1.228225.3.579.2. 593 1947 Unknown [id number] 2.840.1.605235.3.579.2. 593 1947 Unknown [id number] 2.16.840.1.586158.3.579.2. 593 1947 Unknown [id number] 2.16.840.1.391222.3.579.2. 593 1947 Unknown [id number] 2.16.840.1.270895.3.579.2. 72 1947 Unknown [id number] 2.16.840.1.920514.3.579.2. 727 1947 Unknown [id number] 2.16.840.1.911596.3.579.2. 72 1947 Unknown [id number] 2.16.840.1.552528.3.579.2. 72 1947 Unknown [id number] 2.16840.1.697846.3.579.2. 72 1947 Unknown [id number] 2.16.840.1.085029.3.579.2. 72 1947 Unknown [id number] 2.16.840.1.302547.3.579.2. 72 1947 Unknown [id number] 2.16.840.1.259932.3.579.2. 727 1947 Unknown [id number] 2.16.840.1.024975.3.579.2. 72 1947 Unknown [id number] 2.16.840.1.662295.3.579.2. 727 1947 Unknown [id number] 2.16.840.1.472430.3.579.2. 72 1947 Unknown [id number] 2.16.840.1.494306.3.579.2. 727 1947 Unknown [id number] 2.16.840.1.769134.3.579.2. 1259 1947 Unknown [id number] 2.16.840.1.280257.3.579.2. 1258 1947 Unknown [id number] 2.16.840.1.503239.3.579.2. 1258 1947 Unknown [id number] 2.16.840.1.130310.3.579.2. 1258 1947 Unknown [id number] 2.16.840.1.426320.3.579.2. 1258 1947 Unknown [id number] 2.16.840.1.004217.3.579.2. 1258 1947 Unknown [id number] 2.16.840.1.697116.3.579.2. 1259 Medicare Medicare Outpatient [id number] Unknown [id number] 2.16.840.1.845513.3.579.2. 593 Unknown Karl BC/BS [id number] Unknown [id number] 2.16.840.1.808226.3.579.2. 531 Social History Date Type Detail Facility Start: 11-19-2021 End: 05-03-2024 Tobacco smoking status Ex-smoker (finding) [facility] Comment on above: Patient states he sm oked cigarettes, 1 PPD from about 22 years old until about 42 years old. denies use. Former s moker. Quit 1987. Start: 07-30-2023 End: 05-24-2025 Sex Assigned At Male [facility] Start: 09-06-1968 End: 09-06-1988 History of tobacco use Current smoker [facility] Start: 09-06-2012 End: 05-24-2025 Cigarettes smoked current (pack per day) - Reported 1 [facility] Start: 09-06-2012 End: 05-03-2024 Tobacco use and exposure Smokeless tobacco non-user [facility] Start: 01-09-2022 End: 11-21-2024 Alcohol intake Current drinker of alcohol (finding) [facility] Start: 04-05-2019 History SDOH Alcohol Comment rare [facility] Start: 1945 Sex Assigned At Not on file C [facility] Start: 12-30-2021 End: 01-09-2022 Exposure to SARS-CoV-2 (event) Not sure [facility] Start: 09-06-1968 End: 09-06-1988 History of tobacco use Cigarette Smoker [facility] History of tobacco use Passive smoker [facility] Tobacco smoking status Never [facility] Comment on above: Patient states he sm oked cigarettes, 1 PPD from about 22 years old until about 42 years old. denies use. Former s moker. Quit 1987. Start: 05-03-2024 End: 05-24-2025 Alcoholic beverage intake Defer [facility] Start: 1945 Sex Assigned At Male [facility] smoking consumption unknown [facility] Sexual Orientation [facility] Start: 11-01-2016 Sex Male (finding) [facility] NEGATED: Highlighted rowStart: NINF History of tobacco use Passive smoker [facility] Goals Date Patient Goal Desired Activity /State Functional Status Date Assessment Result Facility 04-22-2024 Functional Status N/A [facility] 03-09-2023 Functional Status N/A [facility] 02-19-2015 Are you deaf, or do you have serious difficulty hearing No 02/19/2015 11:13 AM Otilia Mejía No [facility] 02-19-2015 Are you blind, or do you have serious difficulty seeing, even when wearing glasses No 02/19/2015 11:13 AM Otilia Mejía No [facility] 02-19-2015 Do you have serious difficulty walking or climbing stairs No 02/19/2015 11:13 AM Otilia Mejía [facility] 02-19-2015 Do you have difficul ty dressing or bathing Yes 02/19/2015 11:13 AM EDT Otilia Martin Yes [facility] 02-20-2014 Because of a physica l, mental, or emotional condition, do you have difficulty doing errands alone such as visiting a physician's office or shopping No 02/20/2014 11:24 AM EDT Otilia Martin No [facility] Mental Status Date Assessment Result Facility 02-19-2015 Because of a physica l, mental, or emotional condition, do you have serious difficulty concentrating, remembering, or making decisions No 02/19/2015 11:13 AM EDT MarioOtilia No [facility] Clinical Notes 11-19-2021 to 05-26-2025 Gil Angulo DPM [facility]AC[facility] - 05/24/2025 3:10 PM EDTony Angulo DPM [facility] - 03/15/2025 2:30 PM MARY Haynes - 02/02/2025 1:20 PM Yolanda Cunha MA - 11/21/2024 3:08 PM EDT Note Date & Type Note Facility 05-26-2025 Note HNO ID: [id number] Author: ANA M SCHNEIDER APRN.MATERIAL CONTROL ANALYST Service: ? Author Type: Nurse Practitioner Type: Progress Notes Filed: 05/27/2025 09:32 Note Text: PATIENT NAME: Chiki Juarez DATE: 05/26/2025 PRIMARY CARE PHYSICIAN: Dr. Pito Patterson OTHER [...] abnormal blood work was identified by his infertility nurse, Dr. Berg, during evaluation for back issues. He has been monitored with labs every 6 months, with minimal [...] discontinuing the medication without improvement, he was hospitalized for pneumonia, during which a CT scan revealed compression fractures at L1 and L3. He subsequently resumed the medication. 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 The pacemaker was checked earlier this week [...] vision, no nose bleeds or other nasal pr (more content not included)... [facility] 05-24-2025 History of Present illness Narrative patient: Chiki Juarez : 1945 PCP: Elpidio [...] pacemaker in situ 05/23/2022 Cerebrovascular accident (CVA) ([facility]) 08/03/2020 Chronic diastolic heart failure (HCC) 07/28/2023 [...] 05/31/2024 Severe obesity (BMI 35.0-39.9) with comorbidity (CMS-HCC) 08/03/2020 Ventral hernia 05/21/2023 Wheezing 07/02/2023 Past [...] subungual debris. They were painful to palpation [id number] on the right 00477 on the left. VASC: DP /PT were nonpalpable bilateral. Capillary refill time < 3 seconds Digits 1-5 bilateral NEURO: Roslyn Jerson 5.07 monofilament was intact B/L. Vibratory [...] in length and thickness 1 through 10. RUTH Garcia documented in this encounter [facility] 04-24-2025 Hospital Discharge instructions Patient Education 04/24/2025 10:49:40 Prostate Cancer Screening Prostate Cancer Screening Prostate [...] treatment? Where to find more information [employer]: www.cancer.org [employer]: www.auanet.org Contact a health care [...] provider. Document Revised: 01/27/2022 Document Reviewed: 01/27/2022 [facility] [employer] Patient Education 2023 2U. Follow Up Care 04/22/2024 10:40:13 With:MIKE VENTURA, Oni Sewell, URL Address: [address] [place] [address] [place] [address] When: only if needed [facility] 04-24-2025 Note Patient Education Oncology Prostate Cancer Screening [...] recommendations. In general, screening is recommended if: ??? You are age 50 to 70 and [...] have a 10- to 15-year life expectancy. ??? You are younger than age 50, and [...] In general, screening is not recommended if: ??? You are younger than age 40. ??? You are between the ages of 40 and 49 and you have no risk factors. ??? You are 70 years of age or [...] high PSA levels may be caused by: ??? Prostate cancer. ??? An enlarged prostate that is not caused by cancer (benign prostatic hyperplasia, or BPH). This condition is very common in older men. ??? A prostate gland infection (prostatitis) or urinary tract infection. ??? Certain medicines such as male hormones (like [...] you may need more tests, such as: ??? A physical exam to check the size of your prostate gland, if not done as part of screening. ??? Blood and imaging tests. ??? A procedure to remove tissue samples from your prostate gland for testing (biopsy). This is the only way to know for certain if you have prostate cancer. What are the benefits of prostate cancer screening? Screening can help to identify cancer at an early stage, before symptoms start and when the cancer can be treated more easily. ??? There is a small chance that screening [...] Questions to ask your health care provider ??? When should I start prostate cancer screening? What is my risk for prostate cancer? How often do I need screening? What type of screening tests do I need? How do I get my test results? What do my results mean? Do I need treatment? Where to find more information ??? The [place] [employer]: www.cancer.org ??? [place] [employer]: www.auanet.org Contact a health care provider if: ??? You have difficulty urinating. ??? You have pain when you urinate or ejaculate. ??? You have blood in your urine or semen. ??? You have pain in your back or in the area of your prostate. Summary ??? Prostate cancer is a common type of cancer in men. The prostate gland (more content not included)... 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 They were painful to palpation 03174 on the right [id number] on the left. VASC: DP /PT were nonpalpable bilateral. Capillary refill time < 3 seconds Digits 1-5 bilateral NEURO: Roslyn Jerson 5.07 monofilament was intact B/L. Vibratory [...] reexamination. RUTH Garcia documented in this encounter [facility] 02-15-2025 Note Patient Education Endocrinology Hypothyroidism [...] Follow these instructions at home: ??? Take qyhe-uua-ikqqdjn and prescription medicines only as told by [...] provider. Document Revised: 08/05/2022 Document Reviewed: 08/05/2022 [facility] Patient Education ? 2023 2U. Screening for Type 2 Diabetes A screening test for type 2 diabetes (type 2 diabetes mellitus) is a blood test to measure your blood sugar (glucose) level. This test is done to check for early signs of diabetes, before you develop symptoms (more content not included)... [facility] 02-02-2025 History of Present illness Narrative [...] limited to risks of scarring, darker or sales driver pigmentary changes, recurrence, incomplete removal and infection. [...] faxed to PCP, Dr Navarro Mayes RN [facility] 11-24-2024 Miscellaneous Notes Pt notified of BRM message below. She is agreeable to follow up with PCP, to discuss US. She denies any questions, needs or concerns at this time. Labs faxed to PCP, Dr Navarro Mayes RN documented in this encounter [facility] 11-21-2024 Note HNO ID: [id number] Author: YOLANDA MONTAGUE MA Service: ? Author Type: Lamp Stack Developer Type: Progress Notes Filed: 11/23/2024 09:37 Note Text: Pt very short of breath. Has oxygen at home. But declined using our oxygen.Yolanda Montague MA [facility] 11-21-2024 History of Present illness [...] influenza A infection and was hospitalized at [facility]. Apparently his symptoms were severe enough that [...] or inguinal regions. PATHOLOGY: 06/01/2024 [place] A. Skin lesion from left cheek: Recent [...] active disease. 02/01/2024 Bilateral lower extremity Doppscan ([facility]) The RIGHT lower extremity was imaged, assessed [...] Trans x 2.56 cm Sagittal. 12/31/2023 CXR ([facility]) IMPRESSION: 1. No significant interval change and no new or worsening airspace disease. No pleural effusion or pneumothorax. 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 2. Stable cardiomediastinal silhouette. 3. Left chest wall CIED with leads in the right atrium and right ventricle. 4. Unchanged compression deformity in the mid thoracic spine. 09/24/2021 Skeletal bone survey ([facility]) No lytic lesions suggestive of multiple myeloma [...] random TRUS prostate biopsies with prostate adenocarcinoma, [place] 4+3, 3 cores involved out of 9, [...] PCP and pulmonary (Dr. Mayra Berg at [facility]). 6. History of hypothyroidism The patient has [...] Dr. Jb Patterson, PCP Dr. Mayra Berg, Shift Stacker at [facility] documented in this encounter [facility] 11-19-2024 Note HNO ID: [id number] Author: TYLER DRAPER MD Service: ? Author [...] influenza A infection and was hospitalized at [facility]. Apparently his symptoms were severe enough that [...] findings (more content not included)... [facility] 11-15-2024 History of Present illness [...] PATIENT PRESENTS WITH AN IMPLANTABLE OR ATTACHED CITY COUNCILMAN: No RADIOLOGY DEPARTMENT: CT; Exam(s) Completed: Chest PERIPHERAL IV DATA: Site assessment: Clean,Dry and Intact, Site disposition Discontinued SIGNED BY: RT Sonya(R) November 15, 2024 3:18 PM documented in this encounter [facility] 11-15-2024 Note HNO ID: [id number] Author: MEG ASHRAF RN Service: ? Author [...] 15, 2024 TIME: 2:32 PM [facility] 11-15-2024 Note HNO ID: [id number] Author: BROOK DONALDSON RT(R) Service: ? Author [...] PATIENT PRESENTS WITH AN IMPLANTABLE OR ATTACHED CITY COUNCILMAN: No RADIOLOGY DEPARTMENT: CT; Exam(s) Completed: Chest PERIPHERAL IV DATA: Site assessment: Clean,Dry and Intact, Site disposition Discontinued SIGNED BY: RT Sonya(R) November 15, 2024 3:18 PM [facility] 10-21-2024 Note [place] [facility] Subjective Chiki Juarez is a 79 y.o. year old male patient being seen for follow up [facility]. EKG from the ED was questionable for [...] of COPD and is currently followed at [facility]. He takes multiple inhalers. In June 2020 [...] of breath. He recently was seen at [facility] pulmonary and was recommended to follow-up with [...] daily. He was seen by cardiology at [facility] who also agreed that the shortness of breath is not of a cardiac etiology. His infertility nurse was treating him with steroids. He also underwent walk test in September 2023 during which his oxygen dropped significantly. He previously underwent further evaluation at [facility] pulmonology and his follow-up PFTs showed improvement. He also had upper and lower extremity duplex venous ultrasounds and VQ scan of the lungs in January 2024 which were negative. He was admitted to the hospital at [place] on 10/11/2024 due to COPD exacerbation and [...] cough and shortnes (more content not included)... [facility] 10-14-2024 Telephone encounter Note Please sign pended labs for 6 month f/u if agreeable-will draw with CT 1 week prior Thank You! Seema Drake, RN [facility] 10-14-2024 Miscellaneous Notes Please sign pended labs for 6 month f/u if agreeable-will draw with CT 1 week prior Thank You! Seema Drake RN documented in this encounter [facility] 08-04-2024 History of Present illness Narrative [...] limited to risks of scarring, darker or sales driver pigmentary changes, recurrence, incomplete removal and infection. [...] stream 05/21/2023 Prostate nodule 05/21/2023 Pulmonary hypertension ([facility]HCC) 07/02/2023 Noted in 05/21/2023 [place] page 1, added per outpatient CDI policy. 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[facility]HCC) 07/02/2023 Recurrent pneumonia 07/17/2021 Severe obesity (BMI 35.0-39.9) with comorbidity ([facility]) 08/03/2020 Ventral hernia 05/21/2023 Wheezing 07/02/2023 Current [...] Partner Violence: Unknown (10/08/2023) Received from [facility] Fear of Current [...] 11/15/24 at 1:30 PM Shea Kolb PSS [facility] 06-13-2024 Miscellaneous Notes Patient is scheduled 11/15/24 at 1:30 PM Shea Kolb PSS notified and transferred to [facility] to schedule CT as recommended prior to return visit with BRM. Valerie Mayes RN A voicemail was left on Chiki's phone to return our call to schedule a CT for November. hSea Kolb PSS Dr Mayra Berg, [facility] called and spoke with BRM yesterday with [...] Valerie Mayes RN documented in this encounter [facility] 06-13-2024 Telephone encounter Note notified and transferred to PSS to schedule CT as recommended prior to return visit with BRM. Valerie Mayes RN [facility] 06-10-2024 Telephone encounter Note A voicemail was left on Chiki's phone to return our call to schedule a CT for November. Shea Kolb PSS [facility] 06-10-[address] Mayra Berg, [facility] called and spoke with BRM yesterday with [...] to return visit 11/21/24 Valerie Mayes RN [facility] 06-09-2024 History of Present illness Narrative [...] [facility] 06-05-2024 Note HNO ID: [id number] Author: TYLER DRAPER MD Service: ? Author [...] normal (more content not included)... [facility] 06-05-2024 History of Present illness [...] active disease. 02/01/2024 Bilateral lower extremity Doppscan ([facility]) The RIGHT lower extremity was imaged, assessed [...] Trans x 2.56 cm Sagittal. 12/31/2023 CXR ([facility]) IMPRESSION: 1. No significant interval change and no new or worsening airspace disease. No pleural effusion or pneumothorax. 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 2. Stable cardiomediastinal silhouette. 3. Left chest wall CIED with leads in the right atrium and right ventricle. 4. Unchanged compression deformity in the mid thoracic spine. 09/24/2021 Skeletal bone survey ([facility]) No lytic lesions suggestive of multiple myeloma [...] PCP and pulmonary (Dr. Mayra Berg at [facility]). 6. History of hypothyroidism Continue management per [...] evidence of disease. Continue management per dermatology/ENT. Tylre Draper MD CC: Dr. Mayra Berg, Shift Stacker at [facility] documented in this encounter [facility] 05-31-2024 History of Present illness Narrative [...] significance) 09/09/2023 Microscopic hematuria 05/21/2023 Mixed hyperglyceridemia ([facility]/HCC) 05/23/2022 Moderate persistent asthma without complication (CMS/HCC) [...] 07/17/2021 Severe obesity (BMI 35.0-39.9) with comorbidity ([facility]/HCC) 08/03/2020 Ventral hernia 05/21/2023 Wheezing 07/02/2023 Current [...] Partner Violence: Unknown (10/08/2023) Received from [facility] [place] [facility] Fear of Current [...] for Disease Control and Prevention: cdc.gov ? [place] [employer] Association: heart.org ? National Heart, Lung, and Blood [place]: nhlbi.nih.gov This information is not intended to replace advice given to you by your health care provider. Make sure you discuss any questions you have with your health care provider. Document Revised: 04/23/2023 Document Reviewed: 04/16/2023 [facility] Patient Education ? 2023 2U. [facility] 05-03-2024 History of Present illness Narrative [...] limited to risks of scarring, darker or sales driver pigmentary changes, recurrence, incomplete removal and infection. [...] IV SITE APPEARANCE: Clean,Dry and Intact SIGNATURE: Seema Drake RN PATIENT NAME: Chiki Juarez DATE: April [...] 1333 PATIENT DISCHARGED TO: Ambulatory patient, left [place] department area. A Diagnostic radioactive procedure has taken place, with no further precautions necessary other than routine body substance precautions. More information regarding radiation safety can be found using this link: [email or web address] [email or web address] [email or web address] SIGNATURE: RT Sonya(Melodie) PATIENT NAME: Chiki Juarez DATE: April 29, 2024 TIME: 1:44 PM PAGER/CONTACT #: documented in this encounter [facility] 04-26-2024 Telephone encounter Note Patient is scheduled with MARY Simmons on 05/03/24 @ 11:00. [facility] 04-26-2024 Miscellaneous Notes Patient is scheduled with MARY Simmons on 05/03/24 @ 11:00. Records faxed to [facility] Dermatology. Rhona: Information ready for you. Jennie Velasquez Please ref patient to [facility] Dermat[facility]. Dx Skin Lesion blaise facial area. Their office to call the patient to schedule/ Rhona, Please fax records Julius, Please follow up on this appt. documented in this encounter [facility] 04-22-2024 Hospital Discharge instructions Patient Education [...] treatment? Where to find more information The [place] [employer]: www.cancer.org [place] [employer] Association: www.auanet.org Contact a health care [...] provider. Document Revised: 01/27/2022 Document Reviewed: 01/27/2022 [facility] Patient Education 2023 2U. Follow Up Care 03/09/2023 12:17:11 With:MIKE VENTURA, Oni Sewell, URL Address: [facility] [address] , [place] [address]- [phone] When: Unknown [facility] Katerina 04-20-2024 Telephone encounter Note Records faxed to [facility] Dermat[facility]. [facility] 04-20-2024 Telephone encounter Note Rhona: Information ready for you. Jennie Velasquez [facility] 04-19-2024 Telephone encounter Note Please ref patient to [facility] Dermatology. Dx Skin Lesion blaise facial area. Their office to call the patient to schedule/ Rhona, Please fax records Julius, Please follow up on this appt. T [facility] 04-18-2024 History of Present illness Narrative [...] visit here he followed up with his infertility nurse at [facility] for 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 For evaluation [...] date: Acute maxillary sinusitis No date: Cancer ([facility]) Comment: Lymphoma No date: Chronic bronchitis with emphysema No date: COPD (chronic obstructive pulmonary disease) ([facility]) No date: COVID No date: Cystic fibrosis gene carrier No date: Dysarthria following nontraumatic intracerebral hemorrhage No date: Hypothyroidism No date: Hypoxemia No date: Multiple myeloma ([facility]) No date: Pulmonary edema No date: Stroke ([facility]) No date: Thyroid disease Comment: aquired due [...] RADIOLOGY/OTHER STUDIES: 02/01/2024 Bilateral lower extremity Doppscan ([facility]) The RIGHT lower extremity was imaged, assessed [...] Trans x 2.56 cm Sagittal. 12/31/2023 CXR ([facility]) IMPRESSION: 1. No significant interval change and no new or worsening airspace disease. No pleural effusion or pneumothorax. 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 2. Stable cardiomediastinal silhouette. 3. Left chest wall CIED with leads in the right atrium and right ventricle. 4. Unchanged compression deformity in the mid thoracic spine. 09/24/2021 Skeletal bone survey ([facility]) No lytic lesions suggestive of multiple myeloma [...] PCP and pulmonary (Dr. Mayra Berg at [facility]). 6. History of hypothyroidism Continue management per [...] Tyler Draper MD CC: Dr. Mayra Berg, Shift Stacker at [facility] documented in this encounter [facility] 02-02-2024 Telephone encounter Note Pt informed of BRM message and denies any questions, needs or concerns at this time. Appointment verified. Valerie Mayes RN [facility] 02-02-2024 Miscellaneous Notes Pt informed of BRM message and denies any questions, needs or concerns at this time. Appointment verified. Valerie Mayes RN ----- Message from Tyler Draper MD sent at 02/02/2024 8:08 AM EDT ----- Please inform the patient that his labs are stable. We will continue observation and see him back as scheduled. documented in this encounter [facility] 02-02-2024 Telephone encounter Note ----- Message from Tyler Draper MD sent at 02/02/2024 8:08 AM EDT ----- Please inform the patient that his labs are stable. We will continue observation and see him back as scheduled. [facility] 03-31-2023 Hospital Discharge instructions Patient [...] [facility] [address] [place] [address]- Business (1) When:03/31/2024 11:58:05 Comments:With a renal ultrasound [facility] 03-09-2023 Hospital Discharge instructions Patient Education [...] urethra. Follow these instructions at home: Take hdmi-zsd-zqgjrxs and prescription medicines only as told by [...] provider. Document Revised: 02/19/2022 Document Reviewed: 02/19/2022 [facility] Patient Education 2022 2U. Follow Up Care 02/13/2023 11:39:29 With:MIKE VENTURA, Oni Sewell, URL Address: [facility] [address] , [place] [address]- [phone] When: Unknown Comments:schedule cysto and renal US1 yr w/ PSA [facility] 08-05-2022 Miscellaneous Notes Informed pt of Dr Draper's message. Pt verbalized understanding and denies further needs at this time. Aby Hernandez RN ----- Message from Tyler Draper MD sent at 08/04/2022 12:29 PM EST ----- Please inform the patient that his PSA is stable at 0.26. We will continue as planned. ORESTES Encarnacion documented in this encounter [facility] 07-25-2022 Miscellaneous Notes Spoke to patient [...] awhile please advise documented in this encounter [facility] 01-16-2022 History of Present illness Narrative [...] x2 and pneumonia, following pulmonology team at [facility]. He has a family history significant for [...] a history of Hypothyroidism Prostate Cancer, localized, [place] 7, treated with EBRT (Dr. 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 No family history of hematologic or oncologic issues but significant for cystic fibrosis in brother and nephew; granddaughter is a carrier of cystic fibrosis. Patient lives in [place], [place] with his , Nicolasa. He has 4 children. He has a 75-kkhn-wcgt smoking history and quit in 1986. He [...] Thus, a bone marrow biopsy would not place change roof bolter and it is okay to hold off [...] CC: Will Sherwood documented in this encounter [facility] 01-09-2022 History of Present illness Narrative [...] x2 and pneumonia, following pulmonology team at [facility]. He has a family history significant for [...] with PET CR ?Bronchiectasis, follows pulmonology at [facility] Possible cystic fibrosis, follows pulmonology at [facility], genetic testing pending Previous surgeries include a pacemaker in 2019. No family history of hematologic or oncologic issues but significant for cystic fibrosis in brother and nephew; granddaughter is a carrier of cystic fibrosis. Patient lives in [place], [place] with his , Nicolasa. He has 4 children. He has a 33-sriu-ouwx smoking history and quit in 1986. He [...] unchanged since 2018 2 04-07 bone survey report pending Bone [...] Thus, a bone marrow biopsy would not place change roof bolter and it is okay to hold off for now. PSA stable at 0.30. He will follow up with Dr. Sousa for his history of prostate cancer. Hosea Herrera MD I spent a total of 20 minutes on the date of the service which included preparing to see the patient, badf-ag-wyyj patient care, completing clinical documentation, obtaining and/or reviewing separately obtained history, performing a medically appropriate examination, counseling and educating the patient/family/caregiver, ordering medications, tests, or procedures, independently interpreting results (not separately reported) and communicating results to the patient/family/caregiver. CC: Will Sherwood documented in this encounter [facility] 11-19-2021 Hospital Discharge instructions Patient Education [...] who: Are older than age 65. Are -[place]. Are obese. Have a family history of [...] cells. Follow these instructions at home: Take xpsw-wuq-mlepkoi and prescription medicines only as told by [...] 08/03/2006 Document Revised: 07/16/2018 Document Reviewed: 04/13/2017 [facility] Patient Education 2020 2U. Follow Up Care 10/30/2020 10:17:46 With:Romeo Vidal Jr., MD, URO Address: [facility] [address], [place] [address] [phone] When: Unknown [facility] Evaluation + Plan note Future Appointments Appointment Date:11/25/2022 10:15:00 AM Scheduled Provider:Romeo Vidal Jr., MD [facility] Type:URO Office Visit [facility] Evaluation + Plan note Future Appointments Appointment Date:01/22/2024 11:00:00 AM Scheduled Provider: [facility] App[facility] Type:FM Medicare Wellness Subsequent Diagnostic Tests PendingT3 Free 01/26/23 [facility] Evaluation + Plan note Future Appointments Appointment Date:03/24/2023 10:00:00 AM Scheduled Provider: Location:[facility] Appointment Type:Urology CALL PAT FT Appointment Date:03/31/2023 11:15:00 AM Scheduled Provider: Location:[facility] Appointment Type:Urology FT Appointment Date:01/22/2024 11:00:00 AM Scheduled Provider: [facility] Appoint[facility] Type:FM Medicare Wellness Subsequent Appointment Date:03/14/2024 11:15:00 AM Scheduled Provider:Oni [facility]KEON MD [facility] Type:URO Office Visit Diagnostic Tests PendingPSA Total 03/09/23 [facility] Evaluation + Plan note Future Appointments Appointment Date:01/22/2024 11:00:00 AM Scheduled Provider: [facility] Appoint[facility] Type:FM Medicare Wellness Subsequent Appointment Date:03/14/2024 11:15:00 AM Scheduled Provider:Oni MCKEON MD [facility] App[facility] Type:URO Office Visit [facility] Evaluation + Plan note Future Appointments Appointment Date:12/02/2023 01:00:00 PM Scheduled Provider:Pito Patterson MD Location:[facility]ina Appointment Type: Open Appointment Date:01/18/2024 01:00:00 PM Scheduled Provider:Pito Patterson MD Location:[facility] [place] Appointment Type:FM Open Appointment Date:01/22/2024 11:00:00 AM Scheduled Provider: Location:[facility] [place] Appointment Type:FM Medicare Wellness Subsequent Appointment Date:03/14/2024 11:15:00 AM Scheduled Provider:Oni MCKEON MD Location:[facility] Appointment Type:URO Office Visit [facility] Evaluation + Plan note Future Appointments Appointment Date:05/17/2024 10:00:00 AM Scheduled Provider:Pito Patterson MD Location:[facility] Appointment Type: Open Appointment Date:02/14/2025 08:00:00 AM Scheduled Provider: Location:[facility] Appointment Type: Medicare Wellness Subsequent Appointment Date:04/24/2025 09:45:00 AM Scheduled Provider:Oni MCKEON MD Location:[facility] Appointment Type:URO Office Visit Diagnostic Tests PendingPSA Total 04/22/24 [facility] Evaluation + Plan note Future Appointments Appointment Date:04/24/2025 09:45:00 AM Scheduled Provider:Oni MCKEON MD Location:[facility] Appointment Type:URO Office Visit Appointment Date:02/15/2026 09:30:00 AM Scheduled Provider: Location:[facility] Appointment Type: Medicare Wellness Subsequent Diagnostic Tests PendingHCV Antibody RFX to Quant PCR 02/16/25 [facility] Evaluation + Plan note Future Appointments Appointment Date:02/15/2026 09:30:00 AM Scheduled Provider: Location:[facility] Appointment Type: Medicare Wellness Subsequent [facility] Evaluation note Diagnosis MGUS (monoclonal gammopathy of unknown significance)- Primary Monoclonal paraproteinemia [facility] B12 deficiency- Primary Other B-complex deficiencies Diffuse large B-cell lymphoma, unspecified body region (HCC) [facility] MGUS (monoclonal gammopathy of unknown significance)- Primary Monoclonal paraproteinemia Macrocytic anemia Unspecified deficiency anemia [facility] MGUS (monoclonal gammopathy of unknown significance)- Primary Monoclonal paraproteinemia History of lymphoma Personal history of other lymphatic and hematopoietic neoplasm Lymph node enlargement Enlargement of lymph nodes Skin lesion of face Unspecified disorder of skin and subcutaneous tissue [facility] Diagnosis History of lymphoma Personal history of other lymphatic and hematopoietic neoplasm Lymph node enlargement Enlargement of lymph nodes [facility] Diagnosis Squamous cell carcinoma of scalp- Primary Other malignant neoplasm of scalp and skin of neck 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 documented in this encounter [facility] HealthcareEvaluation noteNo assessment information [facility]Mem[facility] Work Phone: Evaluation note* Diagnosis MGUS (monoclonal gammopathy of unknown significance)- Primary Monoclonal paraproteinemia History of lymphoma Personal history of other lymphatic and hematopoietic neoplasm History of prostate cancer Personal history of malignant neoplasm of prostate Skin lesion of face Unspecified disorder of skin and subcutaneous tissue [facility] Diagnosis Wound infection- Primary Posttraumatic wound infection not elsewhere classified Squamous cell carcinoma of scalp Other malignant neoplasm of scalp and skin of neck [facility] Diagnosis Localized enlarged lymph nodes- Primary Enlargement of lymph nodes [facility] Diagnosis Squamous cell carcinoma of [...] keratosis Actinic keratosis [facility] Diagnosis Capillary angioma- Primary Nevus, non-neoplastic [...] region (HCC)- Primary [facility] Diagnosis Localized enlarged lymph nodes Enlargement of lymph nodes Diffuse large B-cell lymphoma, unspecified body region (HCC) [facility] Diagnosis MGUS (monoclonal gammopathy of unknown significance)- Primary Monoclonal paraproteinemia History of prostate cancer Personal history of malignant neoplasm of prostate Acquired hypothyroidism Unspecified hypothyroidism [facility] Diagnosis Melanocytic nevus of trunk- Primary Benign neoplasm of skin of trunk, except scrotum History of SCC (squamous cell carcinoma) of skin Personal history of other malignant neoplasm of skin Seborrheic keratosis Actinic keratosis Ayala angioma Other seborrheic dermatitis documented in this encounter [facility] HealthcareEvaluation note* Diagnosis Venous insufficiency (chronic) (peripheral)- Primary Unspecified venous (peripheral) insufficiency Onychomycosis Dermatophytosis of nail Pain in left toe(s) Pain in right toe(s) documented in this encounter [facility] HealthcareEvaluation note* Diagnosis Onychomycosis- Primary Dermatophytosis of nail Pain in left toe(s) Pain in right toe(s) documented in this encounter [facility] HealthcareHospital course Narrative No data available for this section [facility] Hospital Discharge instructions No data available for this section [facility] Additional Instructions No exertional [...] or concerns Follow-up in the [facility] Work Phone: Progress note No data available for this section [facility] Summary Purpose Family History No Family History Records Found Relationship Condition Age at Onset Recorded Date/T ruma mother Malignant neoplasm of lung Unknown Unknown Advance Directives No Advanced Directives Records Found Advance Directive Response Recorded Date/ Time Advance Directives No June 01, 2024 10:37am Hospital Course Note MR#: [id number] [facility] Pt. Name: Chiki Juarez Admitted: 06/26/2020 Discharged: [...] Referral Specialty Diagnoses / Procedures Referred By Contac t Referred To Contact CT IMAGING Diagnoses Localized enlarged lymph nodes Procedures CT CHEST W IVCON DIAGNOSTIC COMPUTED TOMOGRAPHY THORAX W/CONTRAST Tyler Draper MD [address] [place] [address] [place] [address] Ct Imaging [place] [address] Referral ID Status Reason Start Date Expiration Date Visits Requested Visits Authorized [id number] Authorized Auto-Generat ed Referral 11/15/2024 07/10/2025 1 1 Specialty Diagnoses / Procedures Referred By Contac t Referred To Contact Dermatology Diagnoses Skin lesion of face Procedures CONSULT TO DERMATOLOGY OFFICE/OUTPATIENT [facility] 60 MINUTES Tyler Draper MD [address] [place] [address] [place] [address] Referral ID Status Reason Start Date Expiration Date Visits Requested Visits Authorized [id number] Authorized PCP Requested Referral 04/19/2024 04/19/2025 1 1 Specialty Diagnoses / Procedures Referred By Contac t Referred To Contact MOLECULAR & FUNCTIONAL IMAGING Diagnoses History of lymphoma Lymph node enlargement Procedures NM PET/CT SKULL-THIGH SUBSEQUENT PET IMAGING CT ATTENUATION SKULL BASE MID-THIGH Tyler Draper MD [address] [place] [address] [place] [address] Molecular & Functional Imaging [address] [place] [address] Referral ID Status Reason Start Date Expiration Date Visits Requested Visits Authorized [id number] Authorized Auto-Generat ed Referral 04/19/2024 05/19/2025 1 [...] and content) DATE CREATED AUTHOR 07/16/2020 [facility] DATE CREATED AUTHOR AUTHOR'S ORGANIZ ATION 04/26/2022 [facility] DATE CREATED AUTHOR AUTHOR'S ORGANIZ ATION 10/16/2024 [facility] DATE CREATED AUTHOR AUTHOR'S ORGANIZ ATION 02/19/2025 [facility] DATE CREATED AUTHOR AUTHOR'S ORGANIZ ATION 02/22/2025 [facility] DATE CREATED AUTHOR AUTHOR'S ORGANIZ ATION 03/08/2025 [facility] DATE CREATED AUTHOR AUTHOR'S ORGANIZ ATION 04/25/2025 [facility] DATE CREATED AUTHOR AUTHOR'S ORGANIZ ATION 05/25/2025 [facility] DATE CREATED AUTHOR AUTHOR'S ORGANIZ ATION 05/27/2025 [facility] dical [facility] DATE CREATED AUTHOR AUTHOR'S ORGANIZ ATION 05/31/2025 [facility] Source Comments (unrecognize d section and content) In the event this informatio n is protected by the Federal Confidentiality of Alcohol and Drug Abuse Patient Records regulations: The Federal rules restrict any use of the information to criminally investigate or prosecute any alcohol or drug abuse patient.[facility] the event this information is protected by the Federal Confidentiality of Alcohol and Drug Abuse Patient Records regulations: The Federal rules restrict any use of the information to criminally investigate or prosecute any alcohol or drug abuse patient.[facility] the event this information is protected by the Federal Confidentiality of Alcohol and Drug Abuse Patient Records regulations: The Federal rules restrict any use of the information to criminally investigate or prosecute any alcohol or drug abuse patient.[facility] the event this information is protected by the Federal Confidentiality of Alcohol and Drug Abuse Patient Records regulations: The Federal rules restrict any use of the information to criminally investigate or prosecute any alcohol or drug abuse patient.[facility] the event this information is protected by the Federal Confidentiality of Alcohol and Drug Abuse Patient Records regulations: The Federal rules restrict any use of the information to criminally investigate or prosecute any alcohol or drug abuse patient.[facility] the event this information is protected by the Federal Confidentiality of Alcohol and Drug Abuse Patient Records regulations: The Federal rules restrict any use of the information to criminally investigate or prosecute any alcohol or drug abuse patient.[facility] Hospital[facility] the event this information is protected by the Federal Confidentiality of Alcohol and Drug Abuse Patient Records regulations: The Federal rules restrict any use of the information to criminally investigate or prosecute any alcohol or drug abuse patient.[facility] Hospital[facility] the event this information is protected by the Federal Confidentiality of Alcohol and Drug Abuse Patient Records regulations: The Federal rules restrict any use of the information to criminally investigate or prosecute any alcohol or drug abuse patient.[facility] Hospital[facility] the event this information is protected by the Federal Confidentiality of Alcohol and Drug Abuse Patient Records regulations: The Federal rules restrict any use of the information to criminally investigate or prosecute any alcohol or drug abuse patient.[facility] Hospital[facility] the event this information is protected by the Federal Confidentiality of Alcohol and Drug Abuse Patient Records regulations: The Federal rules restrict any use of the information to criminally investigate or prosecute any alcohol or drug abuse patient.[facility] Hospital[facility] the event this information is protected by the Federal Confidentiality of Alcohol and Drug Abuse Patient Records regulations: The Federal rules restrict any use of the information to criminally investigate or prosecute any alcohol or drug abuse patient.[facility] the event this information is protected by the Federal Confidentiality of Alcohol and Drug Abuse Patient Records regulations: The Federal rules restrict any use of the information to criminally investigate or prosecute any alcohol or drug abuse patient.[facility] the event this information is protected by the Federal Confidentiality of Alcohol and Drug Abuse Patient Records regulations: The Federal rules restrict any use of the information to criminally investigate or prosecute any alcohol or drug abuse patient.[facility] the event this information is protected by the Federal Confidentiality of Alcohol and Drug Abuse Patient Records regulations: The Federal rules restrict any use of the information to criminally investigate or prosecute any alcohol or drug abuse patient.[facility] the event this information is protected by the Federal Confidentiality of Alcohol and Drug Abuse Patient Records regulations: The Federal rules restrict any use of the information to criminally investigate or prosecute any alcohol or drug abuse patient.[facility] Reason for Visit (unrecogniz ed section [...] ATTENUATION SKULL BASE MID-THIGH Tyler Draper MD [address] [place] [address] [place] [address] Molecular & Functional Imaging [address] [place] [id number] Referral ID Status Reason Start Date Expiration Date V isits Requested Visits Authorized [id number] Closed Auto-Generate d Referral 04/19/2024 05/19/2025 1 1 Reason Comments Suspicious Skin Lesion New patient : SCC left cheek / right scalp Specialty Diagnoses / Procedures Referred By Chelsie simon Referred To Contact Otolaryngology Diagnoses 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 Procedures IN OFFICE/OUTPATIENT [facility] 60 MINUTES Crys Taylor PA [address] [place] [address] Phone: tel: fax: Connor Crawley, [address] [place] [address] Phone: tel: fax: Referral ID Status Reason Start Date Expiration Date V isits Requested Visits Authorized [id number] Closed Specialty Services Required 05/09/2024 11/05/2024 1 1 Reason Comments 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) Reason Comments Post-op Post op exc SCC scal p Reason Comments Pet results Reason Comments Post-op Specialty Diagnoses / Procedures Referred By Contac t Referred To Contact Dermatology Diagnoses skin lesion of face Procedures office visit Tyler Draper MD [address] [place] [address] [place] [address] Lucie Tompkins MD [address] [place] [address] Referral ID Status Reason Start Date Expiration Date Visits Re quested Visits Authorized [id number] Closed 04/21/2024 10/18/2024 1 1 Reason Comments Skin Check Reason Comments Orders Reason Comments Radiology CT Specialty Diagnoses / Procedures [facility] To Contact CT IM[facility]ING Diagnoses Localized enlarged lymph nodes Procedures CT CHEST W IVCON DIAGNOSTIC COMPUTED TOMOGRAPHY THORAX W/CONTRAST Tyler Draper MD [address] [place] [address] [place] [address] Phone: tel: fax: [place] [phone] Referral ID Status Reason Start Date Expiration Date V isits Requested Visits Authorized [id number] Closed Auto-Generate d Referral 11/15/2024 07/10/2025 1 1 Reason Comments MGUS Reason Onset Date Comments TSH results 11/24/2024 Reason Comments Toenail Care Non DM nail care Reason Comments Toenail Care Non dm nail care Care Teams (unrecognized sec tion and content) External Grinder Tender Relationship Specialty Start Date End Date Will Sherwood MD [address] [place] [address] PCP - General 08/01/05 External Grinder Tender Relationship Specialty Start Date End Date Will Sherwood MD [address] [place] [address] PCP - General 08/01/05 External Grinder Tender Relationship Specialty Start Date End Date Will Sherwood MD [address] [place] [address] PCP - General 08/01/05 External Grinder Tender Relationship Specialty Start Date End Date Will Sherwood MD [address] [place] [address] PCP - General 08/01/05 External Grinder Tender Relationship Specialty Start Date End Date Pito Patterson MD [address] [place] [address] PCP - General Family Medicine 07/23/23 External Grinder Tender Relationship Specialty Start Date End Date Pito Patterson MD [address] [place], [place] [address] PCP - General Family Medicine 07/23/23 External Grinder Tender Relationship Specialty Start Date End Date Pito Patterson MD [address] [place] [address] PCP - General Family Medicine 07/23/23 External Grinder Tender Relationship Specialty Start Date End Date Pito Patterson MD [address] [place] [address] PCP - General Family Medicine 07/23/23 External Grinder Tender Relationship Specialty Start Date End Date Unallocated, Mohit Galvan MD [address] [place] [address] PCP - General Family Medicine 04/08/23 Crys Taylor PA [address] [place] [address] Physician Teacher Visually Impaired Dermatology 05/31/24 Connor Crawley DO [address] [place] [address] Otolaryngology 05/31/24 External Grinder Tender Relationship Specialty Start Date End Date Pito Patterson MD [address] [place] [address] PCP - General Family Medicine 05/31/24 Crys Taylor PA [address] [place] [address] Physician Teacher Visually Impaired Dermatology 05/31/24 Connor Crawley DO [address] [place] [address] Otolaryngology 05/31/24 Team Status: Active Member Role Status Dates Pito Patterson MD Primary Care Provider Active Team Status: Inactive Member Role Status Dates Connor Crawley DO Attending Provider Active S tart: June 01, 2024 End: June 01, 2024 Pito Patterson MD Primary Care Provider Active Start: June 01, 2024 End: June 01, 2024 External Grinder Tender Relationship Specialty Start Date End Date Pito Patterson MD [address] [place] [address] PCP - General Family Medicine 05/31/24 Crys Taylor PA [address] [place] [address] Physician Teacher Visually Impaired Dermatology 05/31/24 Connor Crawley DO [address] [place] [address] Otolaryngology 05/31/24 External Grinder Tender Relationship Specialty Start Date End Date Pito Patterson MD [address] [place] [address] PCP - General Family Medicine 07/23/23 External Grinder Tender Relationship Specialty Start Date End Date Pito Patterson MD [address] [address] PCP - General Family Medicine 05/31/24 Crys Taylor PA [address] [place] [address] Physician Teacher Visually Impaired Dermatology 05/31/24 Connor Crawley, [address] [place] [address] Otolaryngology 05/31/24 External Grinder Tender Relationship Specialty Start Date End Date Unallocated, Mohit Galvan MD [address] [place] [address] PCP - General Family Medicine 04/08/23 External Grinder Tender Relationship Specialty Start Date End Date Unallocated, [place] [address] PCP - General Family Medicine 04/08/23 External Grinder Tender Relationship Specialty Start Date End Date Pito Patterson MD [address] [place] [address] PCP - General Family Medicine 05/31/24 Crys Taylor PA [address] [place] [address] Physician Teacher Visually Impaired Dermatology 05/31/24 Connor Crawley DO [address] [place] [address] Otolaryngology 05/31/24 External Grinder Tender Relationship Specialty Start Date End Date Pito Patterson MD [address] [place] [address] PCP - General Family Medicine 07/23/23 External Grinder Tender Relationship Specialty Start Date End Date Pito Patterson MD [address] [place] [address] PCP - General Family Medicine 07/23/23 External Grinder Tender Relationship Specialty Start Date End Date Pito Patterson MD [address] [place], [place] [id number] PCP - General Family Medicine 07/23/23 External Grinder Tender Relationship Specialty Start Date End Date Pito Patterson MD [address] [place] [address] PCP - General Family Medicine 07/23/23 External Grinder Tender Relationship Specialty Start Date End Date Pito Patterson MD [address] [place] [address] PCP - General Family Medicine 05/31/24 Crys Taylor PA [address] [place] [address] Physician Teacher Visually Impaired Dermatology 05/31/24 Connor Crawley DO [address] [place] [address] Otolaryngology 05/31/24 External Grinder Tender Relationship Specialty Start Date End Date Pito Patterson MD [address] [place] [address] PCP - General Family Medicine 05/31/24 Crys Taylor PA [address] [place] [address] Physician Teacher Visually Impaired Dermatology 05/31/24 Connor Crawley DO [address] [place] [address] Otolaryngology 05/31/24 External Grinder Tender Relationship Specialty Start Date End Date Elpidio Wing MD [address] [place] [address] PCP - General Family Medicine 03/15/25 Crys Taylor PA [address] [place] [address] Physician Teacher Visually Impaired Dermatology 05/31/24 Connor Crawley DO [address] [place] [address] Otolaryngology 05/31/24 External Grinder Tender Relationship Specialty Start Date End Date Elpidio Wing MD [address] [place] [address] PCP - General Family Medicine 03/15/25 Crys Taylor, MARY [address] [place] [address] Physician Teacher Visually Impaired Dermatology 05/31/24 Connor Crawley, [address] [place] [address] Otolaryngology 05/31/24 External Grinder Tender Relationship Specialty Start Date End Date Elpidio Wing MD [address] [place] [address] PCP - General Family Medicine 03/15/25 Crys Taylor, MARY [address] [place] [address] Physician Teacher Visually Impaired Dermatology 05/31/24 Connor Crawley, [address] [place] [address] Otolaryngology 05/31/24 FOR RECORDS PERTAINING TO PATIENTS [...] BE BASED ON THE PRIMARY CLINICAL RECORDS. [facility] [employer] [facility]. provides no warranty or guarantee of the accuracy or completeness of information in this document.
--- NOTE | 2025-06-01 13:08 | US_ITS ---
The [address] [address] Patient Name: CHIKI FOLEY MRN: [id number] date: 1945 Sex: M Assigned Patient Location: [place] Current Patient Location: [place] Accession/Order Number: [id number] Exam Date: 06/01/2025 13:10 Report Date: 06/01/2025 19:26 At the request of: NATASHA FRAGA MD Procedure: US thyroid US thyroid 06/01/2025 1:43 PM SIGNS AND SYMPTOMS: ^Thyroid Nodule COMPARISON: None. FINDINGS: Right and left thyroid lobes are small and heterogeneous in echotexture. The right thyroid lobe measures 3.2 x 1.2 x 1.2 cm and the left thyroid lobe measures 2.5 x 1.2 x 1.4 cm. The isthmus measures 0.1 cm in thickness. No thyroid nodules are present. No cervical lymphadenopathy is noted. US/US thyroid IMPRESSION: TIRADS: 1 (benign) Small heterogeneous thyroid lobes are noted bilaterally suggesting previous thyroiditis which may also be a result of prior radiation therapy. Recommendation: No further ultrasound follow-up is recommended. Impression dictated by: Mani Ag M.D. 06/01/2025 7:26 PM Dictation Location: [place] [address] Electronically authenticated by: [id number] Y Date: 06/01/2025 19:26
== END 2025-06-01 13:01 | disposition home or self-care (01) ==
LOC: US 13:00
PROVIDERS: PCP Family Medicine; Visit Provider Family Medicine
DX: M48.56XA Collapsed vertebra, not elsewhere classified, lumbar region, initial encounter for fracture (principal); E04.1 Nontoxic single thyroid nodule; C85.90 Non-Hodgkin lymphoma, unspecified, unspecified site; Z12.5 Encounter for screening for malignant neoplasm of prostate
CPT/HCPCS: 76536; 77080

== ENCOUNTER 2025-06-05 11:52 | Outpatient (OUT) | payer MEDICARE, SELFPAY ==
--- OUTSIDE RECORDS SUMMARY | 2025-05-23 11:00 | XMS_ITS | Encounter Summary ---
Author Organization [facility] Address [address] [place] [address] Care Team Providers Care Manager Wind Name Role Phone Marshall Briceño MD Primary Care Provider [phone] Encounter Details Date Type Department Care Team (Latest Contact Info) Description 05/23/2025 11:00 AM EDT Ancillary Procedure [facility] [address] [place] [address] Encounter for implantable defibrillator reprogramming or [...] Connor Roberts MD CV IMPLANTABLE CARDIAC DEVICE [place] OCEDURES Final Result documented in this encounter Visit Diagnoses Diagnosis Encounter for implantable defibrillator reprogramming or check Fitting and adjustment of automatic implantable cardiac defibrillator documented in this encounter Care Teams Manager Wind Relationship Specialty Start Date End Date Marshall Briceño MD [address] [place] [id number] PCP - General Family Medicine 05/21/23 05/30/25 documented as of this encounter
--- OUTSIDE RECORDS SUMMARY | 2025-05-24 15:10 | XMS_ITS | Encounter Summary ---
Author Organization [facility] Address [address] [place] [address] Care Team Providers Care Trader Name Role Phone Edwige Taylor Unavailable [phone] Connor Muñoz DO Unavailable [phone] Elpidio Wing MD Primary Care Provider [phone] Reason for Visit * Reason Comments Toenail Care Non dm nail care Encounter Details Date Type Department Care Team (Latest Contact Info) Description 05/24/2025 3:10 PM EDT Procedure Visit [facility] [address] [place] [id number] Gil Little, DPM FACFAS [address] [place] [address] Onychomycosis (Primary Dx); Pain in left toe(s); Pain in right toe(s) Social History Tobacco Use Types Packs/Day Years Used Date Smoking Tobacco: Former Cigarettes Passive Smoke Exposure: Never Smokeless Tobacco: Never Alcohol Use Standard Drinks/Week Comments Defer 0 (1 standard drink = 0.6 oz pur e alcohol) Sex and Gender Information Value Date Recorded Sex Assigned at Not on file Legal Sex Male 8:35 PM EDT Gender Identity Not on file Sexual Orientation Not on file documented as of this encounter Last Filed Vital Signs Vital Sign Reading Time Taken Comments Blood Pressure 138/74 05/24/2025 3:57 PM EDT Pulse 81 05/24/2025 3:57 PM EDT Temperature - - Respiratory Rate - - Oxygen Saturation - - Inhaled Oxygen Concentration - - Weight 96.6 kg (213 lb) 05/24/2025 3:57 PM EDT Height 160 cm (5' 3 ) 05/24/2025 3:57 PM EDT Body Mass Index 37.73 05/24/2025 3:57 PM EDT documented in this encounter Progress Notes * Gil Little DPM FACFAS - 05/24/2025 3:10 PM EDT patient: Dorian Juarez : 1945 PCP: Elpidio Wing MD SUBJECTIVE This is a 80 y.o. male that presents today with a chief complaint of painful elongated nails digits1 through 10. 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 No ulcerations were noted. Nails 1 through 10 were thickened elongated yellow and crumbly with subungual debris. They were painful to palpation [id number] on the right 68168 on the left. VASC: DP /PT were nonpalpable bilateral. Capillary refill time < 3 seconds Digits 1-5 bilateral NEURO: [place] Jerson 5.07 monofilament was intact B/L. Vibratory sensation was intact B/L Musculoskeletal: Muscle strength was +5 over 5 all intrinsic and extrinsic muscles tested. Radiographs: AP/MO/LAT: Diagnostic ultrasound: ASSESSMENT 1. Onychomycosis 2. Pain in left toe(s) 3. Pain in right toe(s) PLAN The patient was educated on proper foot care as well as the etiology of onychomycosis. I educated the patient on proper shoe gear as well. Today the nails were debrided both in length and thickness 1through 10. RUTH Garcia documented in this encounter Plan of Treatment Upcoming Encounters Date Type Department Care Team (Late st Contact Info) Description 08/02/2025 3:00 PM EST Procedure Visit [facility] [address] [place] [address] Gil Little, DPM FACFAS [address] [place] [address] 08/03/2025 1:10 PM EST Office [facility] [address] [facility] [address] [place] [address] Edwige Taylor PA [address] [facility] [address] [place] [address] documented as of this encounter Visit Diagnoses Diagnosis Onychomycosis- Primary Dermatophytosis of nail Pain in left toe(s) Pain in right toe(s) documented in this encounter Care Teams Trader Relationship Specialty Start Date End Date Elpidio Wing MD [address] [place] [phone] PCP - General Family Medicine 03/15/25 Edwige Taylor PA [address] [facility] [address] [place] [address] Physician Terra Cotta Mold Maker Dermatology 05/31/24 Connor Muñoz DO [address] [facility] [place] [address] Otolaryngology 05/31/24 documented as of this encounter
--- OUTSIDE RECORDS SUMMARY | 2025-05-26 15:00 | XMS_ITS | Encounter Summary ---
Author Organization [facility] Address [address] [place] [address] Care Team Providers Care Janitorial Assistant Name Role Phone Marshall Briceño MD Primary Care Provider [phone] Source Comments In the event this information is protected by the Federal Confidentiality of Alcohol and Drug AbusePatient Records regulations: The Federal rules restrict any use of the information to criminally investigate or prosecute any alcohol or drug abuse patient.[facility] Reason for Visit * Reason Comments Established Patient 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) Encounter Details Date Type Department Care Team (Latest Contact Info) Description 05/26/2025 3:00 PM EDT Visit (SP) Office Hematology/Oncology [address] [place] [address] Ginger Bean APRN.SALES CORRESPONDENCE CLERK [address] [place] [address] MGUS (monoclonal gammopathy of unknown significance) (Primary Dx); History of prostate cancer; Acquired hypothyroidism Social History Tobacco Use Types Packs/Day Years Used Date Smoking Tobacco: Former Cigarettes 1 20 0 09/06/1968 - 09/06/1988 Passive Smoke Exposure: Past Smokeless Tobacco: Never Alcohol Use Standard Drinks/Week Comments Yes 0 (1 standard drink = 0.6 oz pur e alcohol) rare PHQ-2 Answer Date Recorded PHQ-2 score 2 05/25/2025 Area Deprivation Index Answer Date Ranjit rded National Score (1-100), lower number is lower ri sk 87 06/06/2024 State Score (1-10), lower number is lower risk 8 06/06/2024 Data from: https://www.neighborhoodatlas.[facility]/. Last address used for calculation [address] [place] [address] [address] 06/06/2024 Sex and Gender Information Value Date Recorded Sex Assigned at Not on file Legal Sex Male 7:34 AM EST Gender Identity Not on file Sexual Orientation Not on file documented as of this encounter Last Filed Vital Signs Vital Sign Reading Time Taken Comments Blood Pressure 110/61 05/26/2025 2:44 PM EDT Pulse 80 05/26/2025 2:44 PM EDT Temperature 36.3 C (97.4 F) 05/26/2025 2:44 PM EDT Respiratory Rate 18 05/26/2025 2:44 PM EDT Oxygen Saturation 94% 05/26/2025 2:44 PM EDT Inhaled Oxygen Concentration - - Weight 88.1 kg (194 lb 3.6 oz) 05/26/2025 2:44 P M EDT Height - - Body Mass Index 29.54 04/19/2024 2:18 PM EDT documented in this encounter Functional Status * Are you deaf or do you have serious difficulty hearing? Answer Date of Assessment Author No 02/19/2015 11:13 AM Reynolds * Are you blind or do you have serious difficulty seeing, even when wearing glasses? Answer Date of Assessment Author No 02/19/2015 11:13 AM Reynolds * Do you have serious difficulty walking or climbing stairs? Answer Date of Assessment Author No 02/19/2015 11:13 AM Reynolds * Do you have difficulty dressing or bathing? Answer Date of Assessment Author Yes 02/19/2015 11:13 AM Reynolds * Because of a physical, mental, or [...] 11:13 AM Reynolds documented in this encounter Progress Notes * Ginger Bean APRN.SALES CORRESPONDENCE CLERK - 05/26/2025 2:53 PM EDT PATIENT NAME: Dorian Juarez DATE: 05/26/2025 PRIMARY CARE PHYSICIAN: Dr. Marshall Briceño OTHER PHYSICIANS: Dr. Mayra Berg ([facility]ulmonary [facility]), Dr. Muñoz, Dr. Sousa Portions of this encounter note have been copied from my note from 11/21/2024 and has been updated where appropriate, and reflect my current medical decision making from today. CC: This is a 80 year old male with a history of MGUS, seen for scheduled follow-up (prior patient of Dr. Herrera). INTERIM HISTORY: The patient is a 80-year-old male with MGUS, prior prostate cancer (s/p radiation), and lymphoma (2007), presenting for routine follow-up. The patient was diagnosed with MGUS after abnormal blood work was identified by his ammunition components inspector, Dr. Berg, during evaluation for back issues. He has been eleazar tored with labs every 6 months, with minimal fluctuation in monoclonal protein levels. He has a history of prostate cancer treated with radiation by Dr. Sousa, and lymphoma diagnosed in 2007. Since his last visit in 11/2024, he reports further deterioration of his thoracic spine at T4, T5, and T6, with biopsies negative for malignancy. Osteoporosis was not identified at that time, but he is scheduled for repeat evaluation. Earlier this summer, he developed lower back pain, initially attributed to medication side effects. After discontinuing the medication without improvement, he was hos pitalized for pneumonia, during which a CT scan revealed compression fractures at L1 and L3. He subsequently resumed the medication. 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 The pacemaker was checked earlier this week and is functioning appropriately. He reports stable blood pressure, typically 110-115/60s, occasionally rising to 130/70-72 when upset. He reports weight loss following his pneumonia hospitalization due to poor oral intake, but his appetite has since improved. He denies new lumps or bumps, night sweats, fevers, or chills, but reports feeling cold all the time and is having trouble sleeping. MEDICATIONS: TEZSPIRE 210 mg/1.91 mL (110 mg/mL) injection albuterol (PROVENTIL) 2.5 mg /3 mL (0.083 %) nebulizer solution albuterol sulfate 2.5 mg/3 mL (0.083 %) solution for nebulization INHALE 1 VIAL VIA NEBULIZER EVERY 4 HOURS potassium chloride SR (MICRO-K) 10 mEq CR capsule furosemide (LASIX) 20 mg tablet q 24 HR. influenza vaccine qs 240 mcg, Patients 65 [...] Inhale 1 Puff as instructed twice daily. aspirin, enteric coated (ASPIRIN, ENTERIC COATED) 81 mg EC tablet Take 81 mg by mouth once daily. budesonide (PULMICORT) 1 mg/2 mL nebulizer solution 2 mL. ipratropium-albuterol (DUONEB) 0.5 mg-3 mg(2.5 mg base)/3 mL nebu INHALE 1 VIAL VIA NEBULIZER EVERY6 HOURS NEEDED *DX J44.9* spironolactone (ALDACTONE) 50 [...] Inhale 1 Puff as instructed as needed. acetaminophen-codeine (TYLENOL-COD #3) 300-30 mg per tablet acetaminophen 300 mg-codeine 30 mg tablet (Patient not taking: Reported on 05/26/2025) ALLERGIES: Spironolactone PAST MEDICAL HISTORY: PAST MEDICAL [...] Laterality Date ANESTH,PACEMAKER INSERTION REVIEW OF SYSTEMS: General: No weight loss, malaise or fevers. HEENT: Negative for frequent or significant headaches, No changes in hearing or vision, no nose bleeds or other nasal problems. Respiratory: Negative for cough, wheezing or shortness of breath. Cardiovascular: Negative for chest pain, leg swelling or palpitations. GI: Negative for abdominal discomfort, blood in stools or black stools or change in bowel habits. : No history of dysuria, frequency or incontinence. Musculoskeletal: Negative for: joint pain or swelling, back pain and muscle pain. Skin: Negative for lesions, rash and itching. Hematology/Lymphology: Negative for prolonged bleeding, bruising easily or swollen nodes. Neuro: No history of headaches, syncope, paralysis, seizures or tremors. PHYSICAL EXAM: Vitals: BP 110/61 Pulse 80 Temp 36.3 ??C (97.4 ??F) (Temporal) Resp 18 Wt 88.1 kg (194 lb 3.6 oz) SpO2 94% BMI 29.54 kg/m?? ECOG 1 Gen.: This is an age-appropriate patient in no acute distress. Head: Appears atraumatic with no visible lesions. Eyes: Pupils equally round and reactive to light, extraocular muscles are intact. Neck: Supple. Respiratory: Appears to be respiring comfortably. Neurologic: Nonfocal to gross visualization. Alert and oriented ??3. Psychiatric: No evidence of inappropriate anxiety or depression. Skin: Visible areas of skin without rash, lesions, wounds or petechiae. PATHOLOGY: 06/01/2024 [place] A. Skin lesion from left cheek: Recent biopsy site with scarring and chronic inflammation with fibrosis. Intradermal squamous dysplasia. All margins are free. B. Skin lesion from scalp: Squamous cell carcinoma. Surgical margins are free. LABORATORY DATA: Hemoglobin (g/dL) Date Value 05/26/2025 11.0 09/23/2021 11.3 Hematocrit (%) Date Value 05/26/2025 35.3 09/23/2021 36.2 WBC (k/uL) Date Value 05/26/2025 4.05 09/23/2021 3.99 Platelet Count (k/uL) Date Value 05/26/2025 168 09/23/2021 184 RADIOLOGY/OTHER STUDIES: 11/15/2024 CT chest [...] active disease. 02/01/2024 Bilateral lower extremity Doppscan ([facility]) The RIGHT lower extremity was imaged, assessed [...] Trans x 2.56 cm Sagittal. 12/31/2023 CXR ([facility]) IMPRESSION: 1. No significant interval change and no new or worsening airspace disease. No pleural effusion or pneumothorax. 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 2. Stable cardiomediastinal silhouette. 3. Left chest wall CIED with leads in the right atrium and right ventricle. 4. Unchanged compression deformity in the mid thoracic spine. 09/24/2021 Skeletal bone survey ([facility]) No lytic lesions suggestive of multiple myeloma ASSESSMENT/PLAN: 1. MGUS (monoclonal gammopathy of unknown significance) - ICD9: 273.1, ICD10: D47.2 (primary diagnosis) April 2021 the patient underwent a chest CT for evaluation of shortness of breath, and the scanrevealed a T5 compression deformity plus other bony abnormalities suspicious for lytic lesions. Forevaluation of myeloma the patient underwent SPEP August 2021 which revealed a low level IgG lambdamonoclonal protein. He was seen September 2021 for hematologic evaluation. 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 Repeat SPEP 07/18/2022 revealed resolution of the M protein. Most recent SPEP 11/15/2024 stable (M protein0.00). At this time will continue routine observation. [...] random TRUS prostate biopsies with prostate adenocarcinoma, [place] 4+3, 3 cores involved out of 9, cribriform pattern present. Bone scan witha T5 compression fracture. No evidence of other lesions on bone scan or CT abdomen. April 01, 2019bone biopsy of T5 compression fracture negative for [...] cervical node FNA) at the age of 73.Bone marrow biopsy negative for involvement. Cytogenetics normal male 46 XY [20]. The patient received treatment with four cycles of R- CHOP followed by involved field radiation. End of treatment PET scan consistent with complete metabolic response. Due to the suspicion of pathologic inguinal lymphadenopathy the patient underwent PET scan 04/29/2024 which was essentially negative. However, mention made of an AP window/left hilar mildly avid 0.7 cm lymph node favored to be reactive, lymphomatous involvement less likely. Follow-up chest CT 11/15/2024 negative. Currently no evidence of disease. Will continue to monitor clinically and restage as indicated if suspicious signs or symptoms develop. 5. COPD, suspected bronchiectasis The patient has a long history of pulmonary symptoms from COPD and possible bronchiectasis. Continue management per PCP and pulmonary (Dr. Mayra Berg at [facility]). 6. History of hypothyroidism The patient has a long history of hypothyroidism, currently on Synthroid. PET scan April 2024 revealed diffuse thyroid uptake, most likely secondary to thyroiditis. TSH within normal limits. Continue to follow up with PCP. Recommended thyroid ultrasound. 7. Cerebrovascular disease Status post CVA 2019. The patient has residual dysarthria. Continue management per PCP/neurology. 8. Squamous cell skin cancer April 2024 the patient presented with a nonhealing ulcer over the left cheek area. Diagnosed squamous cell skin cancer per dermatology. Status post surgical resection 06/01/2024 per ENT. Currently no evidence of disease. Continue management per dermatology/ENT. Ginger Bean APRN.CNP I spent a total of 30 minutes on the date of the service which included preparing to see the patient, [id number] patient care, completing clinical documentation, obtaining and/or reviewing separately obtained history, performing a medically appropriate examination, counseling and educating the pat ient/family/caregiver, ordering medications, tests, or procedures, independently interpreting results (not separately reported), and communicating results to the patient/family/caregiver. CC: Dr. Jb Briceño, PCP Dr. Mayra Berg, Security Shift Manager at [facility] documented in this encounter Plan of Treatment Upcoming Encounters Date Type Department Care Team (Latest Contact Info) Description 11/24/2025 1:45 PM EDT Office Visit [facility] [address] [place] [address] RV in 6 months with lab 11/24/2025 2:00 PM EDT Visit (SP) Office Hematology/Oncology [address] [place] [address] Ginger Bean APRN.SALES CORRESPONDENCE CLERK [address] [place] [address] RV in 6 months with lab Scheduled Orders Name Type Priority Associated Diagnoses Orde r Schedule COMPLETE BLOOD COUNT AND DIFFERENTIAL Lab Routine MGUS (monoclonal gammopathy of unknown significance) History of prostate cancer Acquired hypothyroidism Expected: 11/25/2025, Expires: 02/24/2026 COMPREHENSIVE METABOLIC PANEL Lab Routine MGUS (monoclonal gammopathy of unknown significance) History of prostate cancer Acquired hypothyroidism Expected: 11/25/2025, Expires: 02/24/2026 MONOCLONAL PROTEIN, SERUM (BLOOD) Lab Routine MGUS (monoclonal gammopathy of unknown significance) History of prostate cancer Acquired hypothyroidism Expected: 11/25/2025, Expires: 02/24/2026 PROTEIN ELECTROPHORESIS SERUM W/INTERP Lab Routine MGUS (monoclonal gammopathy of unknown significance) History of prostate cancer Acquired hypothyroidism Expected: 11/25/2025, Expires: 02/24/2026 PROSTATE-SPECIFIC ANTIGEN DIAGNOSTIC Lab Routine MGUS (monoclonal gammopathy of unknown significance) History of prostate cancer Acquired hypothyroidism Expected: 11/25/2025, Expires: 02/24/2026 documented as of this encounter Visit Diagnoses Diagnosis MGUS (monoclonal gammopathy of unknown significance)- Primary Monoclonal paraproteinemia History of prostate cancer Personal history of malignant neoplasm of prostate Acquired hypothyroidism Unspecified hypothyroidism documented in this encounter Care Teams Janitorial Assistant Relationship Specialty Start Date End Date Marshall Briceño MD [address] [place] [address] PCP - General Family Medicine 07/23/23 documented as of this encounter
--- OUTSIDE RECORDS SUMMARY | 2025-06-02 14:45 | XMS_ITS | Encounter Summary ---
Author Organization [facility] Address [address] [place] [address] Care Team Providers Care Employee Wellness/Fitness Coordinator Name Role Phone Elpidio Wing MD Primary Care Provider [phone] Encounter Details Date Type Department Care Team (Late st Contact Info) Description 06/02/2025 2:45 PM EDT Office Visit [facility] [address] [place] [address] Rodolfo Easton MD [address] [facility] [address] [facility] [place] [address] Dyspnea on exertion (Primary Dx); Complete AV block (CMS/HCC); History of CVA (cerebrovascular accident); Mixed hyperlipidemia; Cardiac pacemaker in situ Social History Tobacco Use Types Packs/Day Years [...] AM EDT documented as of this encounter Last Filed Vital Signs Vital Sign Reading Time Taken Comments Blood Pressure 113/68 06/02/2025 2:51 PM EDT Pulse 87 06/02/2025 2:51 PM EDT Temperature - - Respiratory Rate - - Oxygen Saturation 99% 06/02/2025 2:51 PM EDT Inhaled Oxygen Concentration - - Weight 88.5 kg (195 lb) 06/02/2025 2:51 PM EDT Height 162.6 cm (5' 4 ) 06/02/2025 2:51 PM EDT Body Mass Index 33.47 06/02/2025 2:51 PM EDT documented in this encounter Functional Status * BP Answer Date of Assessment Author 113/68 06/02/2025 2:51 PM EDT Loren Swenson MA * Pulse Answer Date of Assessment Author 87 06/02/2025 2:51 PM EDT Loren Swenson MA * Patient Position Answer Date of Assessment Author Sitting 06/02/2025 2:51 PM EDT Loren Swenson MA * BP Answer Date of Assessment Author 113/68 06/02/2025 2:51 PM EDT Loren Swenson MA * Pulse Answer Date of Assessment Author 87 06/02/2025 2:51 PM EDT Loren Swenson MA * SpO2 Answer Date of Assessment Author 99 06/02/2025 2:51 PM EDT Loren Swenson MA * BP Location Answer Date of Assessment Author Right arm 06/02/2025 2:51 PM EDT Loren Swenson MA * Patient Position Answer Date of Assessment Author Sitting 06/02/2025 2:51 PM EDT Loren Swenson MA documented as of this encounter Progress Notes * Rodolfo Easton MD - 06/02/2025 2:45 PM EDT Images from the original note were not included. [place] [facility] - [facility] Subjective Dorian Juarez is a 80 y.o. year old male patient being seen for a 6 month follow up appointment. Recent pacemaker check. Patient was in [facility] in February for pneumonia. Labs, CT recently done by [facility] Patient denies chest pain. Patient complains of SOB/CANO, fatigue, occasional leg swelling., bruising/bleed ing/discoloration. Patient Active Problem List Diagnosis Complete AV [...] of leg JUANA (obstructive sleep apnea) Hyperglycemia Back pain Cystic fibrosis carrier Former tobacco use jail current use of inhaled steroid Lumbar radiculopathy Prolonged QT interval Uncomplicated severe persistent asthma (CMS/HCC) Family History Problem Relation Name Age of Onset Stroke Father Social History Tobacco Use Smoking status: Former Types: Cigarettes Substance Use Topics Alcohol use: Never Drug use: Never GILDA Dorian is seen in follow-up. He is a 80-year-old man with prior history of COPD and is currently followed at [facility]. He takes multiple inhalers. In June [...] instructed to increase his Lasix to twice dailyfor 3 days and then back to once daily. He reports that his lower extremity swelling has improved alittle bit with this maneuver. Of note that [...] of breath. He recently was seen at [facility] pulmonary and was recommended to follow-up with cardiology as a potential etiologyof his shortness of breath and to possibly [...] pressures and normal pulmonary arterial pressures. His furo semide was reduced to once daily. He was seen by cardiology at [facility] who also agreed that the shortness of breath isnot of a cardiac etiology. His organic lab worker was treating him with steroids. He also underwent walktest in September 2023 during which his oxygen dropped significantly. He previously underwent further evaluation at [facility] pulmonology and his follow-up PFTs showed improvement. He also had upper and lower extremity duplex venous ultrasounds and VQ scanof the lungs in January 2024 which were negative. He was admitted to the hospital at [facility] on 10/11/2024 due to COPD exacerbation and influenza A. He was again admitted to the [facility] in February 2025 due to pneumonia. He was treated accordingly. Today he reports that he is feeling better but continues to have shortness of breath on exertion NYHA class III symptoms. He does have mild lower extremity edema. He is taking furosemide and potassium. He takes furosemide 40 mg daily and occasionally adds another 40 mg depending on swelling and worsening shortness of breath. He has no chest pain and no palpitations. Review of Systems Constitutional: Positive for malaise/fatigue. Cardiovascular: Positive for dyspnea on exertion and leg swelling (occasional). Respiratory: Positive for shortness of breath. Hematologic/Lymphatic: Positive for bleeding problem. Bruises/bleeds easily. All other systems reviewed and are negative. Objective Visit Vitals BP 113/68 (BP Location: Right arm, Patient Position: Sitting) Pulse 87 Ht 1.626 m (5' 4 ) Wt 88.5 kg (195 lb) SpO2 99% BMI 33.47 kg/m?? Smoking Status Former BSA 2 m?? Physical Exam Constitutional: Appearance: He is well-developed. [...] Mood and Affect: Mood normal. Behavior: Behavior is cooperative. Judgment: Judgment normal. Allergies Allergies Allergen Reactions Spironolactone Other Leg cramps, Hyperkalemia Latex Rash Medications Current Outpatient Medications: albuterol 90 mcg/actuation inhaler, ProAir HFA 90 mcg/actuation aerosol inhaler Inhale 2 puffs every 4 hours by inhalation route., Disp: , Rfl: aspirin 81 mg chewable tablet, in the morning., Disp: , Rfl: budesonide (Pulmicort) 0.5 mg/2 mL nebulizer solution, budesonide 0.5 mg/2 mL suspension for nebulization, Disp: , Rfl: calcitonin, salmon, (Miacalcin) 200 unit/actuation nasal spray, Administer 1 spray into one nostrilin the morning., Disp: , Rfl: cholecalciferol (Vitamin D-3) 25 MCG (1000 UT) tablet, Take 1,000 Units by mouth in the morning., Disp: , Rfl: furosemide (Lasix) 40 mg tablet, TAKE 1 TABLET BY MOUTH IN THE MORNING, Disp: 90 tablet, Rfl: 3 levothyroxine (Synthroid, Levoxyl) 100 mcg tablet, Synthroid 100 mcg tablet Take 1 tablet every dayby oral route., Disp: , Rfl: metoprolol succinate XL (Toprol-XL) 25 mg 24 hr tablet, TAKE 1 TABLET BY MOUTH AT BEDTIME (DO NOT CRUSH OR CHEW), Disp: 90 tablet, Rfl: 3 montelukast (Singulair) 10 mg tablet, Take 10 mg by mouth in the morning., Disp: , Rfl: potassium chloride ER (Micro-K) 10 mEq ER capsule, Take 1 capsule (10 mEq) by mouth once daily as directed. Do not crush or chew., Disp: 90 capsule, Rfl: 3 salmeterol (Serevent Diskus) 50 mcg/dose diskus inhaler, Serevent Diskus 50 mcg/dose powder for inhalation, Disp: , Rfl: tiotropium (Spiriva with HandiHaler) 18 mcg inhalation capsule, Spiriva with HandiHaler 18 mcg and inhalation capsules, Disp: , Rfl: gabapentin (Neurontin) 300 mg capsule, Take 300 mg by mouth at bedtime. (Patient not taking: Reported on 06/02/2025), Disp: , Rfl: Recent Labs No visits with results within 6 Month(s) from this visit. Latest known visit with results is: [facility] Encounter on 06/30/2020 Component Date Value Glucose POC 06/30/2020 108 (H) NT-proBNP 07/28/2023: 455. Blood testing 08/13/2023: Potassium 3.6, BUN 21, creatinine 1.53, EGFR 44. Blood testing 04/22/2022: Potassium 4.0, BUN 22, creatinine 1.49, EGFR 46. Blood testing 07/23/2023: Component Ref Range & Units 5 d ago Resulting Agency WBC 3.70 - 11.00 k/uL 5.77 [facility] RBC 4.20 - 6.00 m/uL 3.03 Low [facility] Hemoglobin 13.0 - 17.0 g/dL 10.0 [facility] Hematocrit 39.0 - 51.0 % 31.8 Low [facility] MCV 80.0 - 100.0 fL 105.0 High [facility] MCH 26.0 - 34.0 pg 33.0 [facility] MCHC 30.5 - 36.0 g/dL 31.4 [facility] RDW-CV 11.5 - 15.0 % 15.8 High [facility] Platelet Count 150 - 400 k/uL 179 [facility] MPV 9.0 - 12.7 fL 10.1 [facility] NRBC /100 WBC 0.0 [facility] Absolute nRBC <0.01 k/uL <0.01 [facility] Neutrophils % % 39.4 [facility] Abs Neut (Segs + Bands) 1.45 - 7.50 k/uL 2.27 [facility] Lymphocytes % % 21.9 [facility] Abs Lymph (Normal + Reactive) 1.00 - 4.00 k/uL 1.26 [facility] Monocytes % % 36.0 [facility] Abs Glynn <0.87 k/uL 2.08 High [facility] Eosin% % 0.9 [facility] Abs Eosin <0.46 k/uL 0.05 [facility] Basophils % % 0.0 [facility] Abs Baso <0.11 k/uL 0.00 [facility] [place] % % 0.9 [facility] Myelo % % 0.9 [facility] Left Shift Present [facility] Platelet Estimate Adequate [facility] Red Cell Morph Reviewed: see results of individual morphologies [facility] Polychromasia Slight [facility] Anisocytosis Present [facility] Ovalocytes Few [facility] Diff Type Manual BUN 9 - 24 mg/dL 17 Creatinine 0.73 - 1.22 mg/dL 1.33 High Sodium 136 - 144 mmol/L 137 Potassium 3.7 - 5.1 mmol/L 3.7 Chloride 97 - 105 mmol/L 103 CO2 22 - 30 mmol/L 24 Anion Gap 9 - 18 mmol/L 10 Calcium, Total 8.5 - 10.2 mg/dL 8.4 Low Estimated Glomerular Filtration Rate >=60 mL/min/1.73m Blood testing 04/19/2024: Hemoglobin 12.3, platelets 136, BUN 20, creatinine 1.37, potassium 4.4, EGFR 53. Blood testing 10/13/2024: Hemoglobin 12, platelets 110, ABG pO2 78.5, oxygen saturation 95.5, potassium 5, BUN 27, creatinine 1.56, EGFR 53, LFTs normal, troponin I 11.7, NT proBNP 836. blood testing 03/26/2025: Hemoglobin 11.7, platelets 159, potassium 3.9, BUN 25, creatinine 1.49, eGFR 46, LFTs within normal limits, high-sensitivity troponin 8.4. Blood testing 05/26/2025: Hemoglobin 11, platelets 168, LFTs within normal limits, BUN 15, creatinine 1.03, potassium 4.8, eGFR 74. Imaging and other tests ECG 03/26/2025: Sinus rhythm with occasional supraventricular premature complexes with occasional ventricular premature complexes. Right bundle branch block. Left anterior fascicular block. Cardiac device interrogation 01/28/2025: PRESENTING RHYTHM As/Vs BATTERY 10.5 years remaining LEADS No new or signicant issues requiring intervention ADVERTISING SALES EXECUTIVE AP 1.0%; RVP 30.0% ARRHYTHMIAS No episodes noted. Echocardiogram 11/04/2024: 1. Mild concentric left ventricular hypertrophy with low normal systolic function. LVEF is estimated at 50 to 55%. 2. Normal right ventricular size and systolic function. 3. Mild biatrial dilatation. 4. Mild aortic and tricuspid regurgitation. 5. Mild to moderate pulmonic regurgitation. 6. Mildly elevated right-sided pressures. RVSP is 44 mmHg. ECG 10/11/2024: Sinus tachycardia. First-degree AV block, anteroseptal myocardial infarction age undetermined. ECG 10/11/2024: Read as atrial fibrillation. My review shows sinus tachycardia with PVCs. Pacemaker device interrogation 04/26/2024: Normal device function, lead measurements stable. No events. RA pacing 2%, RV pacing 41%. PFTs 04/21/2024: SPIROMETRY: Moderate obstructive ventilatory defect. FVC is reduced, which can indicate a restrictive ventilatory defect. Full PFTs, including TLC, are required for confirmation if clinically indicated. DIFFUSION: Moderate gas exchange impairment. OXIMETRY: Low but adequate oximetry on room air at rest. COMPARISON: Significant improvement in spirometry and DLCO compared to 12/31/2023. OTHER: Coved flow volume loop. Upper extremity ultrasound 02/01/2024: The RIGHT contralateral internal jugular and subclavian veins of the upper extremity were imaged, assessed by Doppler, and appears patent with no evidence of DVT within the imaged veins. . The LEFT upper extremity was imaged, assessed by Doppler, and appears patent with no evidence of DVT within the imaged veins. Lower extremity ultrasound 02/01/2024: The RIGHT lower extremity was imaged, assessed by Doppler, and appears patent with no evidence of DVT within the imaged veins. There is evidence of a non-vascularized mass located in the right groin area, measurin.9 cm AP x 3.18 cm Trans x 2.46 cm Sagittal. . The LEFT lower extremity was imaged, assessed by Doppler, and appears patent with no evidence of DVT within the imaged veins. There is evidence of a non-vascularized mass located in the left groin area, measurin.9 cm AP x 3 cm Trans x 2.56 cm Sagittal. V/Q scan lungs 02/01/2024: IMPRESSION: 1. No scintigraphic evidence of thromboembolic PFTs 12/31/2023: SPIROMETRY: Moderate obstructive ventilatory defect. No significant improvement in spirometry with inhaled bronchodilators. DIFFUSION: Severe gas exchange impairment when corrected for hemoglobin. OXIMETRY: Low but adequate oximetry on room air at rest. COMPARISON: Decline in FVC but no significant change in FEV1 or DLCO compared to 10/08/2023. OTHER: Coved flow volume loop. Right heart catheterization 09/17/2023: Hemodynamic Data: RA: 7 RV: 29/2, 8 PA: 34/9 (20) PCWP: 8 CO: 4.94 CI: 2.44 O2 Sat: PA sat: 58%, AO sat: 92% BP: 113/66 (75) TP PVR: 2.42 Wood units SVR: 1101 Metric units Impression/Findings: Low Normal left filling pressures. Normal right filling pressures. no pulmonary hypertension. Mildly increased pulmonary vascular resistance. Normal cardiac output and cardiac index. Controlled systemic hypertension. Findings do not support cardiac etiology behind the significant shortness of breath. Plan: Given low left-sided filling pressures and worsening renal function on the increased dose Lasix, Lasix will be reduced back to 40 mg daily. Follow-up with [facility] pulmonary team for his shortness of breath. Echocardiogram 08/06/2023: LV systolic function is difficult to assess but appears preserved. Visually estimated ejection fraction is 50 to 55%. Right ventricle appears normal in size with reduced systolic function. Mildly increased left ventricular wall thickness. Biatrial enlargement. Grade 1 diastolic dysfunction. Mildly elevated right ventricular systolic pressure, RVSP 39 mmHg. Mild pulmonary regurgitation. Anterior free space, trivial effusion versus fat pad. PFTs 07/02/2023: SPIROMETRY: Moderate obstructive ventilatory defect. FVC is reduced, but a restrictive ventilatory defect was ruled out with a normal TLC in 2020. DIFFUSION: Mild gas exchange impairment. OXIMETRY: Low but adequate oximetry on room air at rest. COMPARISON: Significant decline in spirometry but no significant change in DLCO compared to 08/06/2022. OTHER: Coved flow volume loop. CT scan of the chest 06/09/2023: No air trapping, fibrosis or significant chronic interstitial changes. Mild emphysematous changes. No acute infiltrates. Device check 03/31/2023: no events. Device check 10/14/2022: normal functioning device, lead measurement stable, one NSVT event, consistent with VT, last around 20 seconds Stress test 04/16/2022: Small fixed defect inferior wall possibly diaphragmatic attenuation artifact, no reversible ischemia, normal exercise test. Normal ejection fraction. Lipid profile 02/10/2022: Cholesterol 171, triglycerides 85, HDL 40, LDL 114. Device check 03/04/2022: Underlying rhythm is sinus, 1 mode switch episode consistent with AT. Echocardiogram 02/19/2022: LV systolic function is difficult to assess but appears preserved, LVEF isestimated at 50 to 55%, mildly dilated right ventricle with normal systolic function, no significant valvular dysfunction, mildly elevated right-sided pressures, RVSP 41 mmHg, no pericardial effusion. PFTs 07/17/2021: FEV1 over FVC 100%, DLCO 48%. Blood testing 02/05/2022: Hemoglobin 11.4, platelets 161, potassium 3.8, BUN 22, creatinine 1.35, TSH 3.3, NT proBNP 231. Pacemaker interrogation July 2021: 100% V pacing with atrial tracking. labs from renal function slightly elevated on 09/09/21 CR 1.28 07/17/2021 Sodium 143, potassium 3.8, BUN 19, creatinine 1.3-noted previous creatinines up to 1.6-1.7 Liver function normal Albumin 4.4 normal A1c 5.8 None CBC he is typically anemic with a hemoglobin 9-11-he states this happened after treatment for lymphoma. Echo 07/24/21: Normal LVSF EF > 55%, mild DD- gd I, no significant valvular dysfunction, RVSP 37 Echocardiogram 07/26/2020 : LV systolic function reduced 45 to 50% ejection fraction Noted LVH, No PFO noted. 06/28/2020 CV[facility] report PROCEDURE PERFORMED: 1. Implantation of pacemaker ([employer]) 2. Ultrasound guided venous access INDICATIONS: 1. 3rd degree AV block 2. COVID + Admitted: 06/26/2020 [facility] Discharged: 06/30/2020 Date of : 1945 Physician: Jose M Hammond MD DISCHARGE SUMMARY PRIMARY DIAGNOSES: 1. [...] standpoint, the patient is okay to discharge. Patient states he wears CPAP nightly with 2 L of oxygen Assessment/Plan Diagnoses and all orders for this visit: Dyspnea on exertion Complete AV block (CMS/HCC) History of CVA (cerebrovascular accident) Mixed hyperlipidemia Cardiac pacemaker in situ He is doing relatively well overall. From a cardiac perspective I think that he is stable. His shortness of breath is mostly related to his lung disease currently NYHA class III. He gets desaturationwith walking. His stress test in March 2022 was negative for ischemia. His right heart catheterization on 09/17/2023 showed low normal left-sided filling pressures with no pulmonary hypertension. He has history of cerebrovascular accident but this was in the setting of COVID infection. His mostrecent lipid profile showed normal levels, his LDL was 114. He is currently not maintained on statin therapy. Continue aspirin 81 mg daily. His leg edema is controlled on current diuretic regimen of 40 mg furosemide daily. He also adds an extra 40 mg on an as needed basis. I reviewed with him the results of the most recent echocardiogramin October 2024 that showed low normal LV systolic function with an RVSP of 44 mmHg. I think that theelevated right-sided pressures is related to his pulmonary disease. He sees oncology and rheumatology. He will follow-up with pulmonary. Follow up in about 1 year (around 06/02/2026). Rodolfo Easton MD documented in this encounter Plan of Treatment Not on file documented as of this encounter Visit Diagnoses Diagnosis Dyspnea on exertion- Primary Other dyspnea and respiratory abnormality Complete AV block (CMS/HCC) Atrioventricular block, complete History of CVA (cerebrovascular accident) Transient ischemic attack (TIA), and cerebral infarction without residual deficits Mixed hyperlipidemia Cardiac pacemaker in situ documented in this encounter Care Teams Employee Wellness/Fitness Coordinator Relationship Specialty Start Date End Date Elpidio Wing MD [facility] [facility] [place] [address] PCP - General Family Medicine 05/31/25 documented as of this encounter
--- OUTSIDE RECORDS SUMMARY | 2025-06-05 12:00 | XMS_ITS | Encounter Summary ---
Author Organization [facility] Address [address] [place] [id number] Care Team Providers Care Caterer Helper Name Role Phone Nanette Sherwood MD Primary Care Provider [phone] Marshall Briceño MD Primary Care Provider [phone] Source Comments In the event this information is protected by the Federal Confidentiality of Alcohol and Drug AbusePatient Records regulations: The Federal rules restrict any use of the information to criminally investigate or prosecute any alcohol or drug abuse patient.[facility] Encounter Details Date Type Department Care [...] Description 11/24/2025 1:45 PM EDT Office Visit [facility] [address] [place] [address] RV in 6 months with lab 11/24/2025 2:00 PM EDT Visit (SP) Office Hematology/Oncology [address] [place] [address] Ginger Bean APRN.WIRE TECHNICIAN [address] [place] [address] RV in 6 months with lab documented as of this encounter Visit Diagnoses Not on filedocumented in this encounter Care Teams Caterer Helper Relationship Specialty Start Date End Date Nanette Sherwood MD [address] [place], [place] [id number] PCP - General 08/01/05 07/22/23 Marshall Briceño MD [address] [place], [place] [id number] PCP - General Family Medicine 07/23/23 documented as of this encounter
--- OUTSIDE RECORDS SUMMARY | 2025-06-05 12:00 | XMS_ITS | Encounter Summary ---
Author Organization [facility] Address [address] [place] [address] Care Team Providers Care Technology Development Intern Name Role Phone Edwige Taylor Unavailable [phone] Connor Muñoz DO Unavailable [phone] Elpidio Wing MD Primary Care Provider [phone] Encounter Details Date Type Department Care Team (Late Contact Info) Description 05/24/2025 Bamboo flowsheet [facility] [address] [place] [address] Gil Little, DPM FACFAS [address] [place] [address] Social History Tobacco Use Types Packs/Day Years [...] EST Procedure Visit [facility] [address] [place] [id number] Gil Little, DPM FACFAS [address] [place] [address] 08/03/2025 1:10 PM EST Office Visit [facility] [address] [place] [address] Edwige Taylor PA [address] [place] [address] documented as of this encounter Visit Diagnoses Not on filedocumented in this encounter Care Teams Technology Development Intern Relationship Specialty Start Date End Date Elpidio Wing MD [address] [place] [phone] PCP - General Family Medicine 03/15/25 Edwige Taylor PA [address] [place] [address] Physician Silver Lap Machine Tender Dermatology 05/31/24 Connor Muñoz DO [address] [place] [address] Otolaryngology 05/31/24 documented as of this encounter
--- OUTSIDE RECORDS SUMMARY | 2025-06-05 12:00 | XMS_ITS | Clinical Summary ---
Author Organization [employer] tem Address [id number] [address] [place] [address] Care Team Providers Care Skin Diving Teacher Name Role Phone Nanette Sherwood MD Primary Care Provider [phone] Allergies No known active allergies Medications CALCIUM CITRATE-VITAMIN D3 ORAL Take by mouth. Activ e cyanocobalamin, vitamin B-12, 1,000 mcg/mL drops Take by mouth. Activ e acetaminophen-c odeine (TYLENOL #3) 300-30 mg per tablet as needed. Active albuterol (PROVENTIL,VENT MARIA T) 2.5 mg /3 mL (0.083 %) nebulizer solution INHALE 1 VIAL VIA NEBULIZER EVERY 4 HOURS 06/18/20 Active albuterol (PROVENTIL,VENT MARIA T) 2.5 mg [...] 2012 Fall Risk Screening 2012 COVID-19 Vaccine (2024-2 6 season) 2025 06/25/2021, 11/13/2020, 10/22/2020 Influenza Vaccine 04/17/2025 05/24/2021, , 04/16/2019, Additional history exists DTaP,Tdap and Td Vaccines (2 - Td or Tdap) 05/09/2030 05/09/2020 Zoster (Shingles) Vaccine Completed 07/24/2020, Medical Devices Not on file Insurance [employer] MEDICARE Care Teams Skin Diving Teacher Relationship Specialty Start Date End Date Nanette Sherwood MD PCP - General Family Medicine 10/06/19
--- OUTSIDE RECORDS SUMMARY | 2025-06-05 12:00 | XMS_ITS | Encounter Summary ---
Author Organization [facility] Address [address] [address] Care Team Providers Care Manufacturing Baker Name Role Phone Marshall Briceño MD Primary Care Provider [phone] Reason for Visit * Reason Comments Med Refill Encounter Details Date Type Department Care Team (Late st Contact Info) Description 05/20/2025 Refill [facility] Heart at [facility] [address] [place] [address] Rodolfo Easton MD [address] [facility] [address] [facility] [place] [address] Dyspnea on exertion Social History Tobacco Use [...] abnormality documented in this encounter Care Teams Manufacturing Baker Relationship Specialty Start Date End Date Marshall Briceño MD [address] [place] [address] PCP - General Family Medicine 05/21/23 05/30/25 documented as of this encounter
--- OUTSIDE RECORDS SUMMARY | 2025-06-05 12:00 | XMS_ITS | Clinical Summary ---
Author Organization [facility] Address [address] [place] [address] Care Team Providers Care Flight Communications Specialist Name Role Phone Deven Alves MD Unavailable [phone] Tyler Draper MD Unavailable [phone] Elpidio Wing MD Primary Care Provider [phone] Allergies Active Allergy Reactions Criticality Noted Date [...] the original. PCP Marshall Briceño M.D. ph. [phone]. 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 Pulmonary hypertension 07/02/[address] scan 07/02/2023 Edema of both upper arms 07/02/2023 Chronic sinusitis 07/02/2023 Bilateral leg edema 08/06/2022 Cough 07/17/2021 Recurrent pneumonia 07/17/2021 Dyspnea 07/17/2021 Encounters Date Type Department Care Team Description 03/10/2025 10:12 AM EDT - 03/10/2025 11:59 PM EDT Hospital Encounter [facility] Floor B1 College Administrator B [address] [facility] [address] [place] [address] Asthma-COPD overlap syndrome (CMS/HCC) Discharge Disposition: 11 Home or Self Care 03/10/2025 Results Follow-Up [facility] Pulmonary Clinic [facility] Floor 3 College Administrator C [address] [place] [address] Dr [address] [place] [address] Mayra Berg MD XR Chest PA and Lateral 03/09/2025 1:40 PM EDT - 03/09/2025 11:59 PM EDT Hospital Encounter [facility] Radiology [facility] Floor 2 College Administrator A [address] [place] [address] Dr [address] [place] [address] Asthma-COPD overlap syndrome (CMS/HCC) Discharge Disposition: 11 Home or Self Care 03/09/2025 1:00 PM EDT Office Visit [facility] Pulmonary [facility] Floor 3 College Administrator C [address] [place] [address] Dr [address] [place] [address] Mayra Berg MD Asthma-COPD overlap syndrome (CMS/HCC) (Primary Dx); Cough, unspecified type; Dyspnea, unspecified type; Radiation fibrosis of lung; Recurrent pneumonia; Chronic sinusitis, unspecified location 03/09/2025 11:37 AM EDT - 03/09/2025 1:39 PM EDT Hospital Encounter [facility] Pulmonary Function Lab [facility] Floor 3 College Administrator C [address] [place] [address] Dr [address] [place] [address] Cystic fibrosis (CMS/HCC) Discharge Disposition: 11 Home [...] Info) Description 09/07/2025 10:45 AM EST Appointment [facility] Pulmonary Function Lab [facility] Floor 3 College Administrator [address] [place] [address] 09/07/2025 11:00 AM EST Office Visit [facility] Pulmonary Clinic [facility] Floor 3 College Administrator [address] [place] [phone] Mayra Berg MD [address] [place] [address] Dr [address] [facility] Floor 3 College Administrator [facility] [place] [address] Health Maintenance Due Date Last Done Comments [...] Routine 03/09/2025 12:42 PM EDT Cystic fibrosis (CMS/[facility]) from Last 3 Months Results * CT [...] TECHNIQUE: CT examination acquisition dated 03/02/2025 from [facility] labeled with the patients name was submitted for review. 3 mm thick axial images were obtained from lung apices to bases without intravenous contrast with multiplanar reconstructions. Images were loaded to the PACS archive and reviewed on a PACS workstation. (DFOV = 378 mm) FINDINGS: Lower Neck & Thyroid: Normal. Lungs: Edon motion artifact throughout the examination, considerably limits [...] TECHNIQUE: CT examination acquisition dated 03/02/2025 from [facility] labeled with the patients name was submitted for review. 3 mm thick axial images were obtained from lung apices to bases without intravenous contrast with multiplanar reconstructions. Images were loaded to the PACS archive and reviewed on a PACS workstation. (DFOV = 378 mm) FINDINGS: Lower Neck & Thyroid: Normal. Lungs: Edon motion artifact throughout the examination, considerably limits [...] PM EDT) Fvc Base Pred 2.94 L [facility] PFT Fvc Base Actl 1.94 L [facility] PFT Fvc Base % Pred 65 % [facility] PFT Fev1 Base Pred 2.23 L [facility] PFT Fev1 Base Actl 1.23 L [facility] PFT Fev1 Base % Pred 55 % [facility] PFT FEV6 BASE PRED 2.82 L [facility] PFT FEV6 BASE ACTL 1.92 L [facility] PFT FEV6 BASE % PRED 68 % [facility] PFT Fev1/Fvc Base Pred 77 % [facility] PFT Fev1/Fvc Base Actl 64 % [facility] PFT Fev1/Fvc Base % Pred 82 % [facility] PFT FEFMAX BASE PRED 7.48 L/sec [facility] PFT FEFMAX BASE ACTL 2.73 L/sec [facility] PFT FEFMAX BASE % PRED 36 % [facility] PFT Pek66-33% Base Pred 1.78 L/sec [facility] PFT Niu73-22% Base Actl 0.63 L/sec [facility] PFT Mia49-62% Base % Pred 35 % [facility] PFT FET BASE ACTL 2 sec [facility] PFT Fivc Base Actl 1.54 L [facility] PFT Fif50% Base Pred 4.25 L/sec [facility] PFT Fif50% Base Actl 1.65 L/sec [facility] PFT Fif50% Base % Pred 38 % [facility] PFT FIFMAX BASE ACTL 1.90 L/sec [facility] PFT Fef/Fif50 Base Pred 62 % [facility] PFT Fef/Fif50 Base Actl 50 % [facility] PFT Fef/Fif50 Base % Pred 80 % [facility] PFT Vc Base Pred 2.94 L [facility] PFT Vc Base Actl 2.47 L [facility] PFT Vc Base % Pred 84 % [facility] PFT Ic Base Pred 2.36 L [facility] PFT Ic Base Actl 2.14 L [facility] PFT Ic Base % Pred 90 % [facility] PFT Erv Base Pred 0.87 L [facility] PFT Erv Base Actl 0.33 L [facility] PFT Erv Base % Pred 37 % [facility] PFT Dlco Base Pred 20.19 ml/min/mmHg [facility] PFT Dlco Base Actl 10.07 ml/min/mmHg [facility] PFT Dlco Base % Pred 49 % [facility] PFT Va Base Pred 4.98 L [facility] [...] dlco spirometry exam performed on 03/09/25 at [facility] Pulmonary Function Lab [facility] SPIROMETRY: No obstructive ventilatory defect. FVC [...] Indicated CF or CRMS 02/21/2025 02/21/2025 Insurance [facility] MEDICARE PPO Care Teams Flight Communications Specialist Relationship Specialty Start Date End Date Elpidio Wing MD [address] [place] [phone] PCP - General Family Medicine 03/31/25 Deven Alves MD [address] [place] [address] Dr [address] [facility] [place] [address] Crisis Intervention Specialist Cardiology 10/21/23 Tyler Draper MD [address] [place] [address] [address] [place] [address] Internal Medicine 02/08/24
--- OUTSIDE RECORDS SUMMARY | 2025-06-05 12:00 | XMS_ITS | Clinical Summary ---
Author Organization [facility] Address [address] [place] [address] Care Team Providers Care Design Sales Consultant Name Role Phone Edwige Taylor PA Unavailable [phone] Connor Muñoz DO Unavailable [phone] Elpidio Wing MD Primary Care Provider [phone] Allergies Active Allergy Reactions Criticality Noted Date [...] Visit [facility] [address] [place] [address] Gil Little, DPM FACFAS Onychomycosis (Primary Dx); Pain in left toe(s); Pain in right toe(s) 05/24/2025 Bamboo flowsheet [facility] [address] [place] [address] Gil Little, DPRomie FACFAS 03/15/2025 2:30 PM EDT Office Visit [facility] [address] [address] Gil Little, DPM FACFAS Venous insufficiency (chronic) (peripheral) (Primary Dx); Onychomycosis; Pain in left toe(s); Pain in right toe(s) 03/15/2025 Bamboo flowsheet [facility] [address] [place] [address] Gil Little, DPM FACFAS from Last 3 [...] EST Procedure Visit [facility] [address] [place] [address] Gil Little, DPM FACFAS [address] [facility] [place] [address] 08/03/2025 1:10 PM EST Office Visit [facility] [address] [place] [address] Edwige Taylor PA [address] [facility] [address] [place] [address] Health Maintenance Due Date Last Done Comments Influenza Vaccine (#1) 2025 , 05/11/2023, 05/24/2021, Additional history exists Pneumococcal Vaccine: 65+ Years Completed 05/25/2018, 04/26/2018, 08/04/2017 Insurance [address] [place] [address] [employer] MEDICARE Care Teams Design Sales Consultant Relationship Specialty Start Date End Date Elpidio Wing MD [address] [place] [address] PCP - General Family Medicine 03/15/25 Edwige Taylor PA [address] [place] [phone] Physician Alum Plant Supervisor Dermatology 05/31/24 Connor Muñoz DO [address] [place] [address] Otolaryngology 05/31/24
--- OUTSIDE RECORDS SUMMARY | 2025-06-05 12:01 | XMS_ITS | Encounter Summary ---
Author Organization [facility] Address [address] [place] [address] Care Team Providers Care Mill Hand Name Role Phone Nanette Sherwood MD Primary Care Provider [phone] Marshall Briceño MD Primary Care Provider [phone] Source Comments In the event this information is protected by the Federal Confidentiality of Alcohol and Drug AbusePatient Records regulations: The Federal rules restrict any use of the information to criminally investigate or prosecute any alcohol or drug abuse patient.[facility] Encounter Details Date Type Department Care [...] N ot on file 07/22/2020 Data from: https://www.neighborhoodatlas.[facility]/. Last address used for calculation Not [...] Description 11/24/2025 1:45 PM EDT Office Visit [facility] [address] [place] [address] RV in 6 months with lab 11/24/2025 2:00 PM EDT Visit (SP) Office Hematology/Oncology [address] [place] [address] Ginger Bean APRN.EXAMINATION SUPERVISOR [address] [place] [address] RV in 6 months with lab documented as of this encounter Visit Diagnoses Not on filedocumented in this encounter Care Teams Mill Hand Relationship Specialty Start Date End Date Nanette Sherwood MD [address] [place] [address] PCP - General 08/01/05 07/22/23 Marshall Briceño MD [address] [place] [address] PCP - General Family Medicine 07/23/23 documented as of this encounter
--- OUTSIDE RECORDS SUMMARY | 2025-06-05 12:01 | XMS_ITS | Encounter Summary ---
Author Organization [facility] Address [address] [place] [address] Care Team Providers Care Cone Machine Feeder Name Role Phone Marshall Briceño MD Primary Care Provider [phone] Source Comments In the event this information is protected by the Federal Confidentiality of Alcohol and Drug AbusePatient Records regulations: The Federal rules restrict any use of the information to criminally investigate or prosecute any alcohol or drug abuse patient.[facility] Encounter Details Date Type Department [...] is lower risk 8 06/06/2024 Data from: https://www.neighborhoodatlas.medicine.[facility].edu/. Last address used for calculation [address] [place] [address] [address] 06/06/2024 Sex and Gender Information [...] 11/24/2025 1:45 PM EDT Office Visit [facility] [address] [place] [address] RV in 6 months with lab 11/24/2025 2:00 PM EDT Visit (SP) Office Hematology/Oncology [address] [place] [address] Ginger Bean APRN.COMMUNICATION CLERK [address] [place] [address] RV in 6 months with lab documented as of this encounter Visit Diagnoses Not on filedocumented in this encounter Care Teams Cone Machine Feeder Relationship Specialty Start Date End Date Marshall Briceño MD [address] [place] [address] PCP - General Family Medicine 07/23/23 documented as of this encounter
--- OUTSIDE RECORDS SUMMARY | 2025-06-05 12:01 | XMS_ITS | Clinical Summary ---
Author Organization [facility] Address [address] [place] [address] Care Team Providers Care Swatch Clerk Name Role Phone Marshall Briceño MD Primary Care Provider [phone] Allergies Active Allergy Reactions Criticality Noted Date [...] 3:00 PM EDT Visit (SP) Office Hematology/Oncology [address] [place] [address] [place] [address] Ginger Bean APRN.FUEL BUYER MGUS (monoclonal gammopathy of unknown significance) (Primary Dx); History of prostate cancer; Acquired hypothyroidism 05/26/2025 Travel 05/25/2025 Travel 05/15/2025 Telephone Hematology/Oncology [address] [place] [address] 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, supervisor feed mill Orders from Last 3 Months Immunizations Immunization [...] is lower risk 8 06/06/2024 Data from: https://www.neighborhoodatlas.medicine.[facility].edu/. Last address used for calculation [address] [place] [address] [address] 06/06/2024 Sex and Gender Information [...] EDT Office Visit [facility] [address] [place] [address] [place] [address] RV in 6 months with lab 11/24/2025 2:00 PM EDT Visit (SP) Office Hematology/Oncology [address] [place] [address] Ginger Bean, CDL TEAM TRUCK DRIVER.FUEL BUYER [address] [place] [address] RV in 6 months with lab Health [...] IMMUNOFIXATION SCREEN, SERUM (05/26/2025 3:46 PM EDT) [facility] MPA Result No M protein is identified. No M protein is identified. 05/30/2025 9:08 AM EDT [facility] Staff Review (MPA) Reviewed by Dr. Constance Ibarra MD 05/30/2025 9:08 AM EDT [facility] Blood BLOOD SPECIMEN / Unknown Venipuncture / Unknown 05/26/2025 3:46 PM EDT 05/26/2025 3:50 PM EDT Arabella Gayle APRN.[facility] Final Resul t Performing Organization Address [facility] [place] [place] [address], * PROTEIN, TOTAL (FOR SEPG) (05/26/2025 3:46 PM EDT) [facility] Protein, Total 6.5 6.3 - 8.0 g/dL 05/27/2025 11:26 AM EDT [facility] Blood BLOOD SPECIMEN / Unknown Venipuncture / Unknown 05/26/2025 3:46 PM EDT 05/26/2025 3:50 PM EDT Arabella Gayle CDL TEAM TRUCK DRIVER.[facility] Final Resul t Performing Organization Address City/[facility]/ZIP Co de Phone Number [facility] [address] [place] [address], [place] * PROTEIN ELECTROPHORESIS SERUM (P) (05/26/2025 3:46 PM EDT) Albumin for SPE 3.81 3.43 - 5.41 g/dL 05/30/2025 8:30 AM EDT [facility] Alpha 1 Globulin 0.39 0.18 - 0.43 g/dL 05/30/2025 8:30 AM EDT [facility] Alpha 2 Globulin 0.82 0.42 - 0.98 g/dL 05/30/2025 8:30 AM EDT [facility] Beta Globulin 0.72 0.61 - 1.17 g/dL 05/30/2025 8:30 AM EDT [facility] Gamma Globulin 0.77 0.53 - 1.51 g/dL 05/30/2025 8:30 AM EDT [facility] Interpretation (Prot Electro) No definitive M protein is identified on protein electrophores is. No definitive M protein is identified on protein electrophores is. 05/30/2025 8:30 AM EDT [facility] M-Protein Location 05/30/2025 8:30 AM EDT [facility] Comment:Not Applicable. M-Protein Concentration 0.00 <=0.00 g/dL 05/30/2025 8:30 AM EDT [facility] SPE Staff Review Reviewed by Dr. Constance Ibarra MD 05/30/2025 8:30 AM EDT [facility] Blood BLOOD SPECIMEN / Unknown Venipuncture / Unknown 05/26/2025 3:46 PM EDT 05/26/2025 3:50 PM EDT Narrative [facility] - 05/30/2025 8:30 AM EDT Serum electrophoresis test was performed using the [employer] V8 NEXUS capillary electrophoresis method. Results obtained with different assay methods or kits cannot be used interchangeably. us Arabella Gayle CDL TEAM TRUCK DRIVER.[facility] Final Resul t [facility] [address] [facility] [place] [address], [place] * (ABNORMAL) KAPPA/ARDON,FREE,SER (05/26/2025 3:46 PM EDT) [place] Free, Serum 25.9(H) 3.3 - 19.4 mg/L 05/29/2025 5:31 PM EDT [facility] Comment: Rarely, increased serum free light chains levels may not be detected or accurately quantified due to prozone phenomenon or in high viscosity samples using this immunoturbidimetric assay. Correlation with other laboratory results and clinical findings is recommended. The [place] Free Light Chain was performed using the Binding Site Optilite immunoturbidimetric method. Result obtained with different assay methods or kits cannot be used interchangeably. L[place] Free, Serum 16.1 5.7 - 26.3 mg/L 05/29/2025 5:31 PM EDT [facility] Comment: Rarely, increased serum free light [...] 0.26 - 1.65 05/29/2025 5:31 PM EDT [facility] Blood BLOOD SPECIMEN / Unknown Venipuncture / Unknown 05/26/2025 3:46 PM EDT 05/26/2025 3:50 PM EDT us Arabella Gayle CDL TEAM TRUCK DRIVER.[employer] [facility] Final Resul t [facility] [address] [facility] [address] [place] [address], [place] * PROSTATE-SPECIFIC ANTIGEN DIAGNOSTIC (05/26/2025 3:46 PM EDT) PSA 0.24 <2.60 ng/mL 05/27/2025 11:42 AM EDT [facility] Comment:Total PSA test metho dology used is the Electrochemiluminescence Immunoassay by [employer]. Total PSA values by differing methodologies cannot be interchanged. Blood BLOOD SPECIMEN / Unknown Venipuncture / Unknown 05/26/2025 3:46 PM EDT 05/26/2025 3:50 PM EDT Arabella Gayle CDL TEAM TRUCK DRIVER.[employer] [facility] Final Resul t Performing Organization Address [facility] Co de Phone Number [facility] [address] [place] [address], [place] * IMMUNOGLOBULINS,IGG,IGA,IGM (05/26/2025 3:46 PM EDT) IgG 894 700 - 1,600 mg/dL 05/27/2025 9:59 PM EDT [facility] IgA 111 70 - 400 mg/dL 05/27/2025 9:59 PM EDT [facility] IgM 75 40 - 230 mg/dL 05/27/2025 9:59 PM EDT [facility] Blood BLOOD SPECIMEN / Unknown Venipuncture / Unknown 05/26/2025 3:46 PM EDT 05/26/2025 3:50 PM EDT Arabella Gayle CDL TEAM TRUCK DRIVER.[facility] Final Resul t Performing Organization Address [facility] de Phone Number [facility] [address] [place] [address], [place] * (ABNORMAL) COMPREHENSIVE METABOLIC PANEL (05/26/2025 3:46 PM EDT) Protein, Total 7.0 6.3 - 8.0 g/dL 05/27/2025 11:35 AM EDT [facility] Albumin 4.2 3.9 - 4.9 g/dL 05/27/2025 11:35 AM EDT [facility] Calcium, Total 9.2 8.5 - 10.2 mg/dL 05/27/2025 11:35 AM EDT [facility] Bilirubin, Total 0.6 0.2 - 1.3 mg/dL 05/27/2025 11:35 AM [facility] Alkaline Phosphatase 108 38 - 113 U/L 05/27/2025 11:35 AM [facility] AST 13(L) 14 - 40 U/L 05/27/2025 11:35 AM [facility] ALT 11 10 - 54 U/L 05/27/2025 11:35 AM [facility] Glucose 95 74 - 99 mg/dL 05/27/2025 11:35 AM [facility] Comment: The [place] Diabetes Association (ADA) provides guidance for cutoff [...] Standards of Medical Care in Diabetes 2016, [place] Diabetes Association. Diabetes Care. 2016.39(Suppl 1). BUN 15 9 - 24 mg/dL 05/27/2025 11:35 AM [facility] Creatinine 1.03 0.73 - 1.22 mg/dL 05/27/2025 11:35 AM [facility] Sodium 142 136 - 144 mmol/L 05/27/2025 11:35 AM [facility] Potassium 4.8 3.7 - 5.1 mmol/L 05/27/2025 11:35 AM [facility] Chloride 106 98 - 107 mmol/L 05/27/2025 11:35 AM [facility] CO2 22 22 - 30 mmol/L 05/27/2025 11:35 AM [facility] Anion Gap 14 8 - 15 mmol/L 05/27/2025 11:35 AM [facility] Estimated Glomerular Filtration Rate 74 >=60 mL/min/1.7 3m 05/27/2025 11:35 AM [facility] Comment:Estimated Glomerular Filtration Rate (eGFR) is [...] 05/26/2025 3:50 PM EDT us Arabella Gayle CDL TEAM TRUCK DRIVER.[employer] [facility] LAB[facility]AT[facility] Final Resul t [facility] [address] [facility] Desk [address] [address], [place] * (ABNORMAL) COMPLETE BLOOD COUNT AND DIFFERENTIAL (05/26/2025 3:46 PM EDT) WBC 4.05 3.70 - 11.00 k/uL 05/26/2025 3:53 PM EDT [facility] RBC 3.23(L) 4.20 - 6.00 m/uL 05/26/2025 3:53 PM EDT [facility] Hemoglobin 11.0(L) 13.0 - 17.0 g/dL 05/26/2025 3:53 PM EDT [facility] Hematocrit 35.3(L) 39.0 - 51.0 % 05/26/2025 3:53 PM EDT [facility] MCV 109.3(H) 80.0 - 100.0 fL 05/26/2025 3:53 PM EDT [facility] MCH 34.1(H) 26.0 - 34.0 pg 05/26/2025 3:53 PM EDT [facility] MCHC 31.2 30.5 - 36.0 g/dL 05/26/2025 3:53 PM EDT [facility] RDW-CV 16.3(H) 11.5 - 15.0 % 05/26/2025 3:53 PM EDT [facility] Platelet Count 168 150 - 400 k/uL 05/26/2025 3:53 PM EDT [facility] MPV 11.1 9.0 - 12.7 fL 05/26/2025 3:53 PM EDT [facility] Neutrophils % 35.5 % 05/26/2025 3:53 PM EDT [facility] Abs Neut 1.44(L) 1.45 - 7.50 k/uL 05/26/2025 3:53 PM EDT [facility] Lymphocytes % 22.0 % 05/26/2025 3:53 PM EDT [facility] Abs Lymph 0.89(L) 1.00 - 4.00 k/uL 05/26/2025 3:53 PM EDT [facility] Monocytes % 39.0 % 05/26/2025 3:53 PM EDT [facility] Abs [place] 1.58(H) <0.87 k/uL 05/26/2025 3:53 PM EDT [facility] Eosinophils % 1.0 % 05/26/2025 3:53 PM EDT [facility] Abs Eosin 0.04 <0.46 k/uL 05/26/2025 3:53 PM EDT [facility] Basophils % 0.5 % 05/26/2025 3:53 PM EDT [facility] Abs Baso <0.03 <0.11 k/uL 05/26/2025 3:53 PM EDT [facility] Immature Granulocytes % 2.0 % 05/26/2025 3:53 PM EDT [facility] Abs Immature Gran 0.08 <0.10 k/uL 05/26/2025 3:53 PM EDT [facility] NRBC 0.0 /100 WBC 05/26/2025 3:53 PM EDT [facility] Absolute nRBC <0.01 <0.01 k/uL 05/26/2025 3:53 PM EDT [facility] Diff Type Auto 05/26/2025 3:53 PM EDT [facility] Blood BLOOD SPECIMEN / Unknown Venipuncture / Unknown 05/26/2025 3:46 PM EDT 05/26/2025 3:50 PM EDT us Arabella Gayle CDL TEAM TRUCK DRIVER.[facility] [facility] Final Resul t [facility] [address] [place] [address] from Last 3 Months Insurance [facility] MEDICARE [employer]VANT[facility] PPO Care Teams Swatch Clerk Relationship Specialty Start Date End Date Marshall Briceño MD [address] [place] [id number] PCP - General Family Medicine 07/23/23
--- OUTSIDE RECORDS SUMMARY | 2025-06-05 12:01 | XMS_ITS | Encounter Summary ---
Author Organization [facility] Address [address] [place] [address] Care Team Providers Care Veterinarian Epidemiologist Name Role Phone Marshall Briceño MD Primary Care Provider [phone] Elpidio Wing MD Primary Care Provider Encounter Details Date Type Department Care Team (Late st Contact Info) Description 01/28/2025 Orders Only [facility] [address] [place] [address] Connor Roberts MD [address] [place] [address] Social History Tobacco Use Types [...] IMPLANTABLE CARDIAC DEVICE AR OCEDURES Final Result documented in this encounter Visit Diagnoses Not on filedocumented in this encounter Care Teams Veterinarian Epidemiologist Relationship Specialty Start Date End Date Marshall Briceño MD [address] [place] [id number] PCP - General Family Medicine 05/21/23 05/30/25 Elpidio Wing MD [address] [place], [place] [address] [address] PCP - General Family Medicine 05/31/25 documented as of this encounter
--- OUTSIDE RECORDS SUMMARY | 2025-06-05 12:01 | XMS_ITS ---
Author Organization [facility] Address [address] [place], [place] [id number] Care Team Providers Care Fermenter Wine Name Role Phone Marshall Briceño MD Primary Care Provider [phone] Active Problems Problem Noted Date Diagnosed Date B12 deficiency 07/13/2017 Diffuse large B cell lymphoma 02/21/2013 Current Treatment and Therapy Plans No current plan information found. Past Treatment and Therapy Plans
--- OUTSIDE RECORDS SUMMARY | 2025-06-05 12:02 | XMS_ITS | Clinical Summary ---
Author Organization [facility] Address [address] [place] [address] Care Team Providers Care Tool Machine Shop Supervisor Name Role Phone Elpidio Wing MD Primary Care Provider [phone] Allergies Active Allergy Reactions Criticality Noted Date Comments Latex Rash Low 02/02/2025 Spironolactone Other 09/18/2021 Leg cramps, Hyperkalemia Medications aspirin 81 mg chewable tablet in [...] MORNING 90 tablet 3 05/22/20 25 Active calcitonin, salmon, (Miacalcin) 200 unit/actuation nasal spray Administer 1 spray into one nostril in the morning. 06/01/20 25 Active furosemide (Lasix) 40 mg tabletIndicati ons:Dyspnea on exertion Take 1 tablet (40 mg) by mouth in the morning. 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 [address] Rodolfo Easton MD Dyspnea on exertion (Primary Dx); Complete AV block (CMS/HCC); History of CVA (cerebrovascular accident); Mixed hyperlipidemia; Cardiac pacemaker in situ 05/23/2025 11:00 AM EDT Ancillary Procedure [facility] [address] [place] [facility] [address] Encounter for implantable defibrillator reprogramming or check 05/20/2025 Refill [facility] [address] [place] [facility] [address] Rodolfo Easton MD Dyspnea on exertion 04/11/2025 Refill [facility] [address] [place] [facility] [address] Rodolfo Easton MD NSVT (nonsustained ventricular tachycardia) (CMS/HCC) from Last 3 Months Family History Medical History Relation Name Comments Stroke Father Relation Name Status Comments Father Mother Social [...] PM EDT Temperature - - Respiratory Rate 17 09/17/2023 11:45 AM EST Oxygen Saturation 99% 06/02/2025 2:51 PM EDT Inhaled Oxygen Concentration - - Weight 88.5 kg (195 lb) 06/02/2025 2:51 PM EDT Height 162.6 cm (5' 4 ) 06/02/2025 2:51 PM EDT Body Mass Index 33.47 06/02/2025 2:51 PM EDT Plan of Treatment Health Maintenance Due Date [...] Connor Roberts MD CV IMPLANTABLE CARDIAC DEVICE NM OCEDURES Final Result from Last 3 Months Insurance [employer] MEDICARE [place] [id number] Care Teams Tool Machine Shop Supervisor Relationship Specialty Start Date End Date Elpidio Wing MD [address] [facility] [address] [address] PCP - General Family Medicine 05/31/25
--- OUTSIDE RECORDS SUMMARY | 2025-06-05 12:02 | XMS_ITS | Clinical Summary ---
Author Organization [facility] Address [address] [place] [address] Phone Care Team Providers Care Campus Supervisor Name Role Phone Unavailable Primary Care [...]
--- OUTSIDE RECORDS SUMMARY | 2025-06-05 12:02 | XMS_ITS | Encounter Summary ---
Author Organization [facility] Address [address] [place] [address] Care Team Providers Care Corporate Consultant Name Role Phone Marshall Briceño MD Primary Care Provider [phone] Source Comments In the event this information is protected by the Federal Confidentiality of Alcohol and Drug AbusePatient Records regulations: The Federal rules restrict any use of the information to criminally investigate or prosecute any alcohol or drug abuse patient.[facility] Encounter Details Date Type Department Care [...] is lower risk 8 06/06/2024 Data from: https://www.neighborhoodatlas.medicine.[facility].edu/. Last address used for calculation [address] [place] [address] [address] 06/06/2024 Sex and Gender Information [...] Visit [facility] [address] [place] [address] RV in 6 months with lab 11/24/2025 2:00 PM EDT Visit (SP) Office Hematology/Oncology [address] [place] [address] Ginger Bena APRN.MECHANICAL MAINTENANCE FOREMAN [address] [place] [address] RV in 6 months with lab documented as of this encounter Visit Diagnoses Not on filedocumented in this encounter Care Teams Corporate Consultant Relationship Specialty Start Date End Date Marshall Briceño MD [address] [place] [address] PCP - General Family Medicine 07/23/23 documented as of this encounter
--- OUTSIDE RECORDS SUMMARY | 2025-06-05 12:02 | XMS_ITS ---
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
--- OUTSIDE RECORDS SUMMARY | 2025-06-05 12:06 | XMS_ITS | CCD ---
Author Organization [facility] Inform ion Partnership [facility] Care Team Providers Care Selector Packer Name Role Phone CRESCENCIO FLETCHER Referring WILL Aguilar Primary Care Unavailable MYA BHAKTA Attending Unavailable MYA BHAKTA Admitting Unavailable ND Procedure Practitioner Unavailab CONNOR Herrera Surgeon Unavailable MYA BHAKTA Surgeon Unavailable ND Procedure Practitioner Unavailab WILL Jackson Primary Care Physician Will Sherwood MD Primary Care Provider [phone] JARETT, DR WILL Del Toro Attending Unavailable [...] DR WILL Del Toro Primary Care Unavailable JNEI, CRISTÓBAL Consulting Unavailable JENI, CRISTÓBAL Admitting Unavailable JENI, CRISTÓBAL Attending Unavailable FLOREZ, ALLAN Consulting Unavailable PITO PATTERSON Consulting Unavailable PITO PATTERSON Admitting Unavailable PITO PATTERSON Attending Unavailable SHERWOOD, DR WILL Del Toro Primary Care Unavailable Will Sherwood MD Primary Care Provider Pito Patterson. Primary Care Physician Pito Patterson MD Primary Care Provider Unallocated , Mohit Provider Primary Care Provi preet Crys Liu Unavailable Connor Crawley DO Unavailable Pito Patterson MD Primary Care Provider DO Connor Crawley Attending Provider MD Pito Patterson Primary Care Provider [phone] Unallocated , Mohit Provider Primary Care Provi preet Connor Crawley Admitting Unavailable Connor Crawley Attending Unavailable Pito Patterson Primary Care Unavailable CorwinMarlys min Primary Care Physician Corwin, Marlys L Admitting Unavailable Corwin, Marlys L Attending Unavailable Corwin, Marlys Reena Admitting Unavailable Elpidio Wing MD Primary Care Provider Elpidio Wing Primary Care Physician Pito Patterson Attending Unavailable CorwinMarlys Attending Unavailable Pito Patterson Attending Unavailable Pito Patterson Attending Unavailable Pito Patterson Attending Unavailable Corwin, Marlys Valles Attending Unavailable Corwin, Marlys Valles Attending Unavailable Pito Patterson Attending Unavailable Oni MCKEON Attending Unavailable Corwin, Marlys L Admitting Unavailable Corwin, Marlys L Attending Unavailable Corwin, Marlys L Admitting Unavailable Corwin, Marlys Valles Attending Unavailable Pito Patterson Admitting Unavailable MARKUS CERNA Attending Unavailable CRYS TAYLOR Attending Unavailable GIL ANGULO Attending Unavailable CONNOR CRAWLEY Attending Unavailable CRYS TAYLOR Referring Unavailable CONNOR CRAWLEY Attending Unavailable CONNOR CRAWLEY Attending Unavailable GIL ANGULO Attending Unavailable CRYS TAYLOR Attending Unavailable TYLER DRAPER Referring Unavailabl e ROSS, PITO E Primary Care Unavailable TYLER DRAPER Attending Unavailabl TYLER Gurrola Referring Unavailabl e ROSS, PITO E Primary Care Unavailable TYLER DRAPER Referring Unavailabl e ROSS, PITO E Primary Care Unavailable TYLER DRAPER Referring Unavailabl e ROSS, PITO E Primary Care Unavailable ANA M SCHNEIDER Attending Unavailable TYLER DRAPER Referring Unavailabl e YESENIA, PITO E Primary Care Unavailable TYLER DRAPER Referring Unavailabl e YESENIA PITO E Primary Care Unavailable TYLER DRAPER Attending Unavailenedina e TYLER DRAPER Referring Unavailabl e YESENIA, PITO E Primary Care Unavailable DANIELLA EASTON Attending Unavailable DANIELLA EASTON Attending Unavailable CONNOR CARRERA Referring Unavailable CONNOR CARRERA Referring Unavailable CONNOR CARRERA Referring Unavailable Allergies Allergy Classification Reported Allergen(s) Allergy Type Date of Onset Reaction(s) Facility (17 sources) Spironolactone; Translations: [SPIRONOLACTONE ] Drug Allergy 2 Other: See Comments [facility] (8 sources) Latex; Translations: [LATEX] Propensity to adverse reactions 5 Rash NOMS [...] 1 VIAL VIA NEBULIZER EVERY 4 HOURS, [id number], 168, cm, 08/25/24 11:21:00 EST, Height/Length Dosing, [...] 1 VIAL VIA NEBULIZER EVERY 4 HOURS, [facility], 161, cm, 02/15/24 10:32:00 EDT, Height/Length Dosing, 102, kg, 02/15/24 10:32:00 EDT, Weight Dosing Start Date: 02/22/24 Status: Ordered Start: 10-19-2023 take 1 dose by inhal ation every four hours albuterol 0.083% Inh Kasie 3 mL See Instructions, 300 mL, Refill(s) 3, INHALE 1 VIAL VIA NEBULIZER EVERY 4 HOURS, [facility] #[id number], 168, cm, 10/19/23 8:08:00 EST, Height/Length [...] mL, NEB, q4hr, 300 mL, Refill(s) 3, [id number], 162, cm, 10/28/22 15:18:00 EDT, Height/Length Dosing, 99.8, kg, 10/28/22 15:18:00 EDT, Weight Dosing Start Date: 12/17/22 Status: Ordered Start: 12-17-2022 albuterol 0.08 3% Inh Kasie 3 mL See Instructions, 150 mL, Refill(s) 0, INHALE 1 VIAL VIA NEBULIZER EVERY 6 HOURS, [facility], 162, cm, 10/28/22 15:18:00 EDT, Height/Length Dosing, [...] DAY, # 360 mL, Refills(s) 3, Pharmacy: [id number], 168, cm, 04/22/24 10:00:00 EDT, Height/Length Dosing, [...] BID, # 120 mL, Refills(s) 11, Pharmacy: [facility] #[id number], 168, cm, 10/19/23 8:08:00 EST, Height/Length [...] BID, # 120 mL, Refills(s) 11, Pharmacy: [facility] #[id number], 162, cm, 10/28/22 15:18:00 EDT, Height/Length [...] tablet (2 sources) Histamine-1 Receptor Antagonist Start: take 1 tablet [...] Active Start: 03-09-2023 take 1 capsule by [facility] once daily at bedtime gabapentin 300 mg Cap 300 mg = 1 cap(s), Oral, Once a day (at bedtime), # 30 cap(s), Refills(s) 0, Pharmacy: [facility] #[id number], 168, cm, 03/09/23 11:04:00 EDT, Height/Length Dosing, 103, kg, 03/09/23 11:04:00 EDT, Weight Dosing Start Date: 03/09/23 Status: Ordered Start: 01-22-2023 take 1 capsule by [facility] once daily at bedtime gabapentin 300 mg Cap 300 mg = 1 cap(s), Oral, Once a day (at bedtime), # 30 cap(s), Refills(s) 0, Pharmacy: [facility]/pharm[facility] #[id number], 162, cm, 01/22/23 13:19:00 EDT, Height/Length [...] nasal route twice daily ipratropium Nasal 0.06% [place] 2 spray(s), Nasal, BID for 90 day(s), 45 mL, Refill(s) 3, PLACE 2 SPRAYS IN EACH NOSTRIL TWO TIMES DAILY., [facility] #[id number], 168, cm, 03/09/23 11:04:00 EDT, Height/Length Dosing, 103, kg, 03/09/23 11:04:00 EDT, Weight Dosing Start Date: 03/13/23 Stop Date: 03/07/24 Status: Ordered Start: 02-20-2023 take 1 dose nasal ro [place] twice daily, then take 2 spray(s) nasal route twice daily ipratropium Nasal 0.06% [facility] 2 spray(s), Nasal, BID, 1 EA, Refill(s) 1, PLACE 2 SPRAYS IN EACH NOSTRIL TWO TIMES DAILY., [facility]pharm[facility] #[id number], 162, cm, 01/22/23 13:19:00 EDT, Height/Length Dosing, 98.3, kg, 01/22/23 13:19:00 EDT, Weight Dosing Start Date: 02/20/23 Status: Ordered Start: 01-22-2023 take 1 dose nasal ro [place] twice daily, then take 2 spray(s) nasal route twice daily ipratropium Nasal 0.06% [place] 2 spray(s), Nasal, BID, 1 EA, Refill(s) 1, PLACE 2 SPRAYS IN EACH NOSTRIL TWO TIMES DAILY., [id number], 162, cm, 01/22/23 13:19:00 EDT, Height/Length Dosing, 98.3, kg, 01/22/23 13:19:00 EDT, Weight Dosing Start Date: 01/22/23 Status: Ordered levothyroxine sodium 0.112 mg oral tablet (20 sources) l-Thyroxine Start: 02-28-2025 take 1 tablet by mouth once daily levothyroxine 112 mcg (0.112 mg) Tab 112 mcg = 1 tab(s), Oral, Daily, # 90 tab(s), Refills(s) 0, [id number], cm, 02/15/25 10:33:00 EDT, Height/Length Dosing, 98.2, kg, 02/15/25 10:33:00 EDT, Weight Dosing Start Date: 02/28/25 Status: Ordered Quantity: 90.0 Unit: tab(s) Repeat number: 1 Start: 01-31-2025 take 1 tablet by noe th once daily levothyroxine 100 mcg (0.1 mg) Tab See Instructions, TAKE 1 TABLET BY MOUTH EVERY DAY, # 90 tab(s), Refills(s) 0, Pharmacy: [id number], 168, cm, 11/24/24 13:08:00 EDT, Height/Length Dosing, 100.3, kg, 11/24/24 13:08:00 EDT, Weight Dosing Start Date: 01/31/25 Status: Ordered Quantity: 90.0 Unit: tab(s) Repeat number: 1 Start: 04-22-2024 take 1 tablet by noe th once daily levothyroxine 100 mcg (0.1 mg) Tab See Instructions, TAKE 1 TABLET BY MOUTH EVERY DAY, # 90 tab(s), Refills(s) 0, Pharmacy: [facility], 161, cm, 02/15/24 10:32:00 EDT, Height/Length Dosing, 102, kg, 02/15/24 10:32:00 EDT, Weight Dosing Start Date: 04/22/24 Status: Ordered Start: 10-19-2023 take 1 tablet by noe th once daily levothyroxine 100 mcg (0.1 mg) Tab 100 mcg = 1 tab(s), Oral, Daily, # 90 tab(s), Refills(s) 0, Pharmacy: [facility] #[id number], 168, cm, 10/19/23 8:08:00 EST, Height/Length [...] as prescribed for COPD, [facility] ([facility] Supply, 162, cm, 01/22/23 [...] as prescribed for COPD, [facility] ([facility] Supply, 162, cm, 01/22/23 13:19:00 EDT, Height/Length Dosing, 98.3, kg, 01/22/23 13:19:00 EDT, Weight Dosing Start Date: 01/22/23 Status: Ordered Oxygen - for Home (3 sources) Start: 02-15-2024 Oxygen - for H ome 4 L/min, Daily, Refill(s) 0, Oxygen - patient states his radiology transporter just increased this to 4LPM Start Date: 02/15/24 Status: Ordered Repeat number: 1 Start: 02-15-2024 Oxygen - for H ome 4 L/min, Daily, Refill(s) 0, Oxygen - patient states his radiology transporter just increased this to 4LPM Start Date: 02/15/24 Status: Ordered polyethylene glycol 3350 81934 mg powder for oral solution (15 sources) [...] 3 EA, Refill(s) 3, [facility] ([facility]), 168, cm, 03/09/23 11:04:00 EDT, [...] capsule by in halation once daily Tiotropium [place] Active 1 CAP INHALATION Daily June 01, [...] procedure, # 2 tab(s), Refills(s) 0, Pharmacy: [facility] #[id number], 168, cm, 03/09/23 11:04:00 EDT, Height/Length [...] [Chronic sinusitis, unspecified] Onset: 07-02-2023 Resolved: 05-31-2024 4 Chronic Residual codes; unclassified (5 sources) Localized [...] 05-31-2024 07-13-2017 Episodic Other aftercare (1 source) 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; Translations: [READING INSTRUCTOR CURRENT USE OF ASPIRIN] Onset: 05-28-2021 Episodic Other aftercare (1 source) 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; Translations: [OTH READING INSTRUCTOR CURRENT DRUG THERAPY] Onset: 05-28-2021 Episodic Other [...] Value Interpretation Reference Range Facility Office Visiton 06-02-2025 Follow-up visit [id number] Tremaine Juarez 1945 M Date Provider Department Center 06/02/2025 DANIELLA CARDONA [facility] Family History Problem Relation Age of Onset Stroke Father Family Status - Relation Status Age at Mother Father Level of Service:53092 ND OFFICE/OUTPATIENT ESTABLISHED LOW MDM 20 MIN Normal [facility] CBC W Auto Differential pane l (Bld)on 05-26-2025 Basophils (Bld) [#/Vol] 10*3/uL Normal <0.11 [facility] Comment on above: Order Comment: Speci men Type: BLOOD SPECIMENOrdering Facility: [facility] Address: [address] [place] [address] Performed By: #### 5 7021-8 ####[facility] [id number] [place] [address] Basophils/100 WBC (Bld) 0.5 % Normal [facility] Comment on above: Order Comment: Speci men Type: BLOOD SPECIMENOrdering Facility: [facility] Address: [address] [place] [address] Performed By: #### 5 7021-8 ####[facility] [id number] [place] [address] Differential cell count method Nom (Bld) Auto Normal [facility] Comment on above: Order Comment: Speci men Type: BLOOD SPECIMENOrdering Facility: [facility] Address: [address] [place] [address] Performed By: #### 5 7021-8 ####[facility] [id number] [place] [address] Eosinophils (Bld) [#/Vol] 0.04 10*3/uL Normal <0.46 [facility] Comment on above: Order Comment: Speci men Type: BLOOD SPECIMENOrdering Facility: [facility] Address: [address] [place] [address] Performed By: #### 5 7021-8 ####[facility] [id number] [place] [address] Eosinophils/100 WBC (Bld) 1.0 % Normal [facility] Comment on above: Order Comment: Speci men Type: BLOOD SPECIMENOrdering Facility: [facility] Address: [address] [place] [address] Performed By: #### 5 7021-8 ####[facility] [id number] [place] [address] Erythrocyte distribution width (RBC) [Ratio] 16.3 % High 11.5-15.0 [facility] Comment on above: Order Comment: Speci men Type: BLOOD SPECIMENOrdering Facility: [facility] Address: [address] [place] [address] Performed By: #### 5 7021-8 ####[facility] [id number] [place] [address] Hematocrit (Bld) [Volume fraction] 35.3 % Low 39.0-51.0 [facility] Comment on above: Order Comment: Speci men Type: BLOOD SPECIMENOrdering Facility: [facility] Address: [address] [place] [address] Performed By: #### 5 7021-8 ####[facility] [id number] [place] [address] Hemoglobin (Bld) [Mass/Vol] 11.0 g/dL Low 13.0-17.0 [facility] Comment on above: Order Comment: Speci men Type: BLOOD SPECIMENOrdering Facility: [facility] Address: [address] [place] [address] Performed By: #### 5 7021-8 ####[facility] [id number] [place] [address] Immature granulocytes (Bld) [#/Vol] 0.08 10*3/uL Normal <0.10 [facility] Comment on above: Order Comment: Speci men Type: BLOOD SPECIMENOrdering Facility: [facility] Address: [address] [place] [address] Performed By: #### 5 7021-8 ####[facility] [id number] [place] [address] Immature granulocytes/100 WBC (Bld) 2.0 % Normal [facility] Comment on above: Order Comment: Speci men Type: BLOOD SPECIMENOrdering Facility: [facility] Address: [address] [place] [address] Performed By: #### 5 7021-8 ####[facility] [id number] [place] [address] Lymphocytes (Bld) [#/Vol] 0.89 10*3/uL Low 1.00-4.00 [facility] Comment on above: Order Comment: Speci men Type: BLOOD SPECIMENOrdering Facility: [facility] Address: [address] [place] [address] Performed By: #### 5 7021-8 ####[facility]IA [id number] [place] [address] Lymphocytes/100 WBC (Bld) 22.0 % Normal [facility] Comment on above: Order Comment: Speci men Type: BLOOD SPECIMENOrdering Facility: [facility] Address: [address] [place] [address] Performed By: #### 5 7021-8 ####[facility] [id number] [place] [address] MCH (RBC) [Entitic mass] 34.1 pg High 26.0-34.0 [facility] Comment on above: Order Comment: Speci men Type: BLOOD SPECIMENOrdering Facility: [facility] Address: [address] [place] [address] Performed By: #### 5 7021-8 ####[facility]IA [id number] [place] [address] MCHC (RBC) [Mass/Vol] 31.2 g/dL Normal 30.5-36.0 [facility] Comment on above: Order Comment: Speci men Type: BLOOD SPECIMENOrdering Facility: [facility] Address: [address] [place] [address] Performed By: #### 5 7021-8 ####[facility] [id number] [place] [address] MCV (RBC) [Entitic vol] 109.3 fL High 80.0-100.0 [facility] Comment on above: Order Comment: Speci men Type: BLOOD SPECIMENOrdering Facility: [facility] Address: [address] [place] [address] Performed By: #### 5 7021-8 ####[facility] [id number] [place] [address] Monocytes (Bld) [#/Vol] 1.58 10*3/uL High <0.87 [facility] Comment on above: Order Comment: Speci men Type: BLOOD SPECIMENOrdering Facility: [facility] Address: [address] [place] [address] Performed By: #### 5 7021-8 ####[facility] [id number] [place] [address] Monocytes/100 WBC (Bld) 39.0 % Normal [facility] Comment on above: Order Comment: Speci men Type: BLOOD SPECIMENOrdering Facility: [facility] Address: [address] [place] [address] Performed By: #### 5 7021-8 ####[facility] [id number] [place] [address] Neutrophils (Bld) [#/Vol] 1.44 10*3/uL Low 1.45-7.50 [facility] Comment on above: Order Comment: Speci men Type: BLOOD SPECIMENOrdering Facility: [facility] Address: [address] [place] [address] Performed By: #### 5 7021-8 ####[facility] [id number] [place] [address] Neutrophils/100 WBC (Bld) 35.5 % Normal [facility] Comment on above: Order Comment: Speci men Type: BLOOD SPECIMENOrdering Facility: [facility] Address: [address] [place] [address] Performed By: #### 5 7021-8 ####[facility] [id number] [place] [address] Nucleated RBC (Bld) [#/Vol] 10*3/uL Normal <0.01 [facility] Comment on above: Order Comment: Speci men Type: BLOOD SPECIMENOrdering Facility: [facility] Address: [address] [place] [address] Performed By: #### 5 7021-8 ####[facility] [id number] [place] [address] Nucleated RBC/100 WBC (Bld) [Ratio] 0.0 /100 WBC Normal [facility] Comment on above: Order Comment: Speci men Type: BLOOD SPECIMENOrdering Facility: [facility] Address: [address] [place] [address] Performed By: #### 5 7021-8 ####[facility] [id number] [place] [address] Platelet mean volume (Bld) [Entitic vol] 11.1 fL Normal 9.0-12.7 [facility] Comment on above: Order Comment: Speci men Type: BLOOD SPECIMENOrdering Facility: [facility] Address: [address] [place] [address] Performed By: #### 5 7021-8 ####[facility] [id number] [place] [address] Platelets (Bld) [#/Vol] 168 10*3/uL Normal 150-400 [facility] Comment on above: Order Comment: Speci men Type: BLOOD SPECIMENOrdering Facility: [facility] Address: [address] [place] [address] Performed By: #### 5 7021-8 ####[facility]CLIA [id number] [place] [address] RBC (Bld) [#/Vol] 3.23 10*6/uL Low 4.20-6.00 [facility] Comment on above: Order Comment: Speci men Type: BLOOD SPECIMENOrdering Facility: [facility] Address: [address] [place] [address] Performed By: #### 5 7021-8 ####[facility] [id number] [place] [address] WBC (Bld) [#/Vol] 4.05 10*3/uL Normal 3.70-11.00 [facility] Comment on above: Order Comment: Speci men Type: BLOOD SPECIMENOrdering Facility: [facility] Address: [address] [place] [address] Performed By: #### 5 7021-8 ####[facility]IA [id number] [place] [address] CNOVSPon 05-26-2025 CNOVSP Visit (SP) Office (H EMASA) -- CHIKI JUAREZ ([id number]) 1945 M Date Time Provider Department 05/26/25 3:00 PM ANA M SCHNEIDER During your visit today, we recorded the following information about you: Temperature Pulse Respiration Blood pressure 97.4 degrees 80/minute 18/minute 110/61 Weight 88.1 kg Ana M Schneider APRN.GRAIN HANDLER 05/27/2025 9:32 AM Signed PATIENT NAME: Chiki [...] abnormal blood work was identified by his radiology transporter, Dr. Berg, during evaluation for back issues. [...] his heart, leading to pacemaker placement in [place]. The pacemaker was checked earlier this week [...] attack (T (more content not included)... Normal [facility] Comprehensive metabolic 2000 panelon 05-26-2025 Albumin [Mass/Vol] 4.2 g/dL Normal 3.9-4.9 [facility] Comment on above: Order Comment: Speci men Type: BLOOD SPECIMENOrdering Facility: [facility] Address: [address] [place] [address] Performed By: #### 2 4323-8 ####[facility] LABCLIA [id number] [address] [address] [place] ALP [Catalytic activity/Vol] 108 U/L Normal 38-113 [facility] Comment on above: Order Comment: Speci men Type: BLOOD SPECIMENOrdering Facility: [facility] Address: [address] [place] [address] Performed By: #### 2 4323-8 ####[facility] LABCLIA [id number] [place] [id number] [place] ALT [Catalytic activity/Vol] 11 U/L Normal 10-54 [facility] Comment on above: Order Comment: Speci men Type: BLOOD SPECIMENOrdering Facility: [facility] Address: [address] [place] [address] Performed By: #### 2 4323-8 ####[facility]CLIA [id number] [place] [id number] [place] Anion gap [Moles/Vol] 14 mmol/L Normal 8-15 [facility] Comment on above: Order Comment: Speci men Type: BLOOD SPECIMENOrdering Facility: [facility] Address: [address] [place] [address] Performed By: #### 2 4323-8 ####[facility]CLIA [id number] [address] [place] [address] [place] AST [Catalytic activity/Vol] 13 U/L Low 14-40 [facility] Comment on above: Order Comment: Speci men Type: BLOOD SPECIMENOrdering Facility: [facility] Address: [address] [place] [address] Performed By: #### 2 4323-8 ####[facility]CLIA [id number] [address] [address] [place] Bilirubin [Mass/Vol] 0.6 mg/dL Normal 0.2-1.3 [facility] Comment on above: Order Comment: Speci men Type: BLOOD SPECIMENOrdering Facility: [facility] Address: [address] [place], [place] [address] Performed By: #### 2 4323-8 ####[facility]CLIA [id number] [place] [id number] [place] Calcium [Mass/Vol] 9.2 mg/dL Normal 8.5-10.2 [facility] Comment on above: Order Comment: Speci men Type: BLOOD SPECIMENOrdering Facility: [facility] Address: [address] [place], [place] [id number] Performed By: #### 2 4323-8 ####[facility]CLIA [id number] [place] [id number] [place] Chloride [Moles/Vol] 106 mmol/L Normal 98-107 [facility] Comment on above: Order Comment: Speci men Type: BLOOD SPECIMENOrdering Facility: [facility] Address: [address] [place], [place] [address] Performed By: #### 2 4323-8 ####[facility]CLIA [id number] [address] [address] [place] CO2 [Moles/Vol] 22 mmol/L Normal 22-30 [facility] Comment on above: Order Comment: Speci men Type: BLOOD SPECIMENOrdering Facility: [facility] Address: [address] [place], [place] [address] Performed By: #### 2 4323-8 ####[facility]CLIA [id number] [address] [address] [place] Creatinine [Mass/Vol] 1.03 mg/dL Normal 0.73-1.22 [facility] Comment on above: Order Comment: Liliya hadley Type: BLOOD SPECIMENOrdering Facility: [facility] Address: [address] [place] [address] Performed By: #### 2 4323-8 ####[facility] LABIA [id number] [address] [address] [place] eGFRcr SerPlBld CKD-EPI 2020 74 mL/min/1.73m??? Normal >=60 [facility] Comment on above: Order Comment: Liliya hadley Type: BLOOD SPECIMENOrdering Facility: [facility] Address: [address] [place] [address] Result Comment: Ary mated Glomerular Filtration Rate [...] actual GFR. Performed By: #### 2 4323-8 ####[facility] LABCLIA [id number] [address] [address] [place] Glucose [Mass/Vol] 95 mg/dL Normal 74-99 [facility] Comment on above: Order Comment: Liliya hadley Type: BLOOD SPECIMENOrdering Facility: [facility] Address: [address] [place] [address] Result Comment: The [place] [employer] (ADA) provides guidance for cutoff [...] Standards of Medical Care in Diabetes 2016, [place] [employer]. Diabetes Care. 2016.39(Suppl 1). Performed By: #### 2 4323-8 ####[facility] LABCLIA [id number] [address] [place] [address] [place] Potassium [Moles/Vol] 4.8 mmol/L Normal 3.7-5.1 [facility] Comment on above: Order Comment: Speci men Type: BLOOD SPECIMENOrdering Facility: [facility] Address: [address] [place] [address] Performed By: #### 2 4323-8 ####[facility] [id number] [address] [place] [address] [place] Protein [Mass/Vol] 7.0 g/dL Normal 6.3-8.0 [facility] Comment on above: Order Comment: Speci men Type: BLOOD SPECIMENOrdering Facility: [facility] Address: [address] [place], [place] [id number] Performed By: #### 2 4323-8 ####[facility] [id number] [address] [place] [address] [place] Sodium [Moles/Vol] 142 mmol/L Normal 136-144 [facility] Comment on above: Order Comment: Speci men Type: BLOOD SPECIMENOrdering Facility: [facility] Address: [address] [place] [address] Performed By: #### 2 4323-8 ####[facility] LABCLIA [id number] [address] [address] [place] Urea nitrogen [Mass/Vol] 15 mg/dL Normal 9-24 [facility] Comment on above: Order Comment: Speci men Type: BLOOD SPECIMENOrdering Facility: [facility] Address: [address] [place] [address] Performed By: #### 2 4323-8 ####[facility] LABCLIA [id number] [address] IMMUNOFIXATION SCREEN, SERUM on 05-26-2025 MPA RESULT No M protein is identified. Normal No M protein is identified. [facility] Comment on above: Order Comment: Speci men Type: BLOOD SPECIMENOrdering Facility: [facility] Address: [address] [place] [address] Performed By: #### I FES ####[facility] LABCLIA [id number] [address] STAFF REVIEW (MPA) Reviewed by Dr. Rowan Ibarra MD Normal [facility] Comment on above: Order Comment: Speci men Type: BLOOD SPECIMENOrdering Facility: [facility] Address: [address] [place] [address] Performed By: #### I [facility] ####[facility] LABIA [id number] [place] [address] [place] IMMUNOGLOBULINS,IGG,IGA,IGMo n 05-26-2025 IgA [Mass/Vol] 111 mg/dL Normal 70-400 [facility] Comment on above: Order Comment: Speci men Type: BLOOD SPECIMENOrdering Facility: [facility] Address: [address] [place] [address] Performed By: #### S ERIMM ####[facility] LABCLIA [id number] [place] [address] [place] IgG [Mass/Vol] 894 mg/dL Normal 700-1600 [facility] Comment on above: Order Comment: Speci men Type: BLOOD SPECIMENOrdering Facility: [facility] Address: [address] [place] [address] Performed By: #### S ERIMM ####[facility] LABCLIA [id number] [place] [address] [place] IgM [Mass/Vol] 75 mg/dL Normal 40-230 [facility] Comment on above: Order Comment: Speci men Type: BLOOD SPECIMENOrdering Facility: [facility] Address: [address] [place] [address] Performed By: #### S KP ####[facility]IA [id number] [place] [address] [place] KAPPA/ARDON,FREE,SERon 2024 Immunoglobulin light chains.kappa.free (S) [Mass/Vol] 25.9 mg/L High 3.3-19.4 [facility] Comment on above: Order Comment: Speci men Type: BLOOD SPECIMENOrdering Facility: [facility] Address: [address] [place] [address] Result Comment: Rare ly, increased serum free light chains levels may not be detected or accurately quantified due to prozone phenomenon or in high viscosity samples using this immunoturbidimetric assay. Correlation with other laboratory results and clinical findings is recommended. The [place] Free Light Chain was performed using the Binding Site Optilite immunoturbidimetric method. Result obtained with different assay methods or kits cannot be used interchangeably. Performed By: #### K LFRS ####[facility]IA [id number] [place] [address] [place] Immunoglobulin light chains.kappa/Immunog lobulin light chains.lambda (S) [Mass ratio] 1.61 Normal 0.26-1.65 [facility] Comment on above: Order Comment: Speci men Type: BLOOD SPECIMENOrdering Facility: [facility] Address: [address] [place] [address] Performed By: #### K LFRS ####[facility]IA [id number] [place] [address] [place] Immunoglobulin light chains.lambda.free [Mass/Vol] 16.1 mg/L Normal 5.7-26.3 [facility] Comment on above: Order Comment: Speci men Type: BLOOD SPECIMENOrdering Facility: [facility] Address: [address] [place] [address] Result Comment: Rare ly, increased serum free [...] used interchangeably. Performed By: #### K LFRS ####[facility] LABCLIA [id number] [place] [address] [place] PROTEIN ELECTROPHORESIS SERU M (P)on 05-26-2025 Albumin [Mass/Vol] 3.81 g/dL Normal 3.43-5.41 [facility] Comment on above: Order Comment: Speci men Type: BLOOD SPECIMENOrdering Facility: [facility] Address: [address] [place] [address] Performed By: #### L [id number] ####[facility] LABCLIA [id number] [place] [address] [place] Alpha 1 globulin Elph [Mass/Vol] 0.39 g/dL Normal 0.18-0.43 [facility] Comment on above: Order Comment: Speci men Type: BLOOD SPECIMENOrdering Facility: [facility] Address: [address] [place] [address] Performed By: #### L [id number] ####[facility] LABCLIA [id number] [place] [address] [place] Alpha 2 globulin Elph [Mass/Vol] 0.82 g/dL Normal 0.42-0.98 [facility] Comment on above: Order Comment: Speci men Type: BLOOD SPECIMENOrdering Facility: [facility] Address: [address] [place] [address] Performed By: #### L [id number] ####[facility] LABCLIA [id number] [place] [id number] [place] Beta globulin Elph [Mass/Vol] 0.72 g/dL Normal 0.61-1.17 [facility] Comment on above: Order Comment: Speci men Type: BLOOD SPECIMENOrdering Facility: [facility] Address: [address] [place] [address] Performed By: #### L [id number] ####[facility] LABCLIA [id number] [place] [address] [place] Gamma globulin Elph [Mass/Vol] 0.77 g/dL Normal 0.53-1.51 [facility] Comment on above: Order Comment: Speci men Type: BLOOD SPECIMENOrdering Facility: [facility] Address: [address] [place] [address] Performed By: #### L [id number] ####[facility] LABIA [id number] [place] [address] [place] M-PROTEIN LOCATION Normal [facility] Comment on above: Order Comment: Speci men Type: BLOOD SPECIMENOrdering Facility: [facility] Address: [address] [place] [address] Result Comment: Not Applicable. Performed By: #### L [id number] ####[facility] LABIA [id number] [place] [address] [place] Protein Fractions [Interp] No definitive M protein is identified on protein electrophoresis. Normal No definitive M protein is identified on protein electrophore sis. [facility] Comment on above: Order Comment: Speci men Type: BLOOD SPECIMENOrdering Facility: [facility] Address: [address] [place] [address] Performed By: #### L [id number] ####[facility] LABIA [id number] [place] [address] [place] Protein.monoclonal Elph [Mass/Vol] 0.00 g/dL Normal <=0.00 [facility] Comment on above: Order Comment: Speci men Type: BLOOD SPECIMENOrdering Facility: [facility] Address: [address] [place] [address] Performed By: #### L [id number] ####[facility] LABIA [id number] [place] [id number] [place] SPE STAFF REVIEW Reviewed by Dr. Rowan Ibarra MD [facility] Comment on above: Order Comment: Speci men Type: BLOOD SPECIMENOrdering Facility: [facility] Address: [address] [place] [address] Performed By: #### L [id number] ####[facility] [id number] [place] [id number] [facility] PSA SerPl-mCncon 05-26-2025 Prostate specific Ag [Mass/Vol] 0.24 ng/mL Normal <2.60 [facility] Comment on above: Order Comment: Speci men Type: BLOOD SPECIMENOrdering Facility: [facility] Address: [address] [place] [address] Result Comment: Tota l PSA test methodology used is the Electrochemiluminescence Immunoassay by Doreen playnik. Total PSA values by differing methodologies cannot be interchanged. Performed By: #### 2 857-1 ####[facility] [id number] [place] [id number] [facility] [place] Prot SerPl-mCncon 05-26-2025 Protein [Mass/Vol] 6.5 g/dL Normal 6.3-8.0 [facility] Comment on above: Order Comment: Speci men Type: BLOOD SPECIMENOrdering Facility: [facility] Address: [address] [place] [address] Performed By: #### 2 885-2 ####[facility] [id number] [place] [id number] [place] Oswaldo 05-15-2025 RAINA Telephone (HEMASA) -- CHIKI JUAREZ ([id number]) 1945 M Date Time Provider Department 05/15/25 [...] BLOOD COUNT AND DIFFERENTIAL [SQCBCDIF] Order #: [id number] FUTURE COMPREHENSIVE METABOLIC PANEL [SQCMP] Order #: [id number] FUTURE PROSTATE-SPECIFIC ANTIGEN DIAGNOSTIC [SQPSA] Order #: [id number] FUTURE MONOCLONAL PROTEIN, SERUM (BLOOD) [SQSERMPA] Order #: [id number] FUTURE PROTEIN ELECTROPHORESIS SERUM W/INTERP [SQSEPG] Order #: [id number] FUTURE Prescriptions as of 05/15/2025 - TEZSPIRE [...] Encounter Status:Closed by ARABELLA MANDUJANO on 05/15/25 Normal [facility] Ambulatory Visit Summaryon 0 04-24-2025 Ambulatory Visit Summary Ambulatory Visit Summary CHIKI JUAREZ :1945 Visit Date:04/24/2025 Ambulatory Visit Instructions Your Diagnosis History of prostate cancer BPH with urinary obstruction Asymptomatic microscopic hematuria Your Care Team Attending Physician - MIKE VENTURA, Oni Sewell Primary Care Physician - Elpidio Wing MD This Is Your Medications List Contact [...] Follow-Up Appointments 2025 9:30 AM EDT Where: [address] [address]- You Need to Schedule the Following Appointments Follow Up with MIKE VENTURA, Oni Sewell, URL When: Only if needed Where: [address] [place] [address] [place] [address] Medications What How Much When Why Instructions [...] Every day Oxygen - patient states his radiology transporter just increased this to 4LPM Contact prescribing [...] concerns Uncha (more content not included)... Normal [facility] Urology Office/Clinic Noteon 04-24-2025 Urology Office/Clinic [...] Sewell, URL Only if needed [address] [facility] [place] [address] [place] [address] Additional Instructions: Patient Education Prostate Cancer Screening INettie, personally scribed for Dr. Mckeon on 04/24/2025 10:52:12. . Documentation recorded by the scribeNettie, accurately [...] skin, Skin cancer. Medications albuterol 0.083% Inh Kasei 3 mL, See Instructions aspirin 81 mg [...] tab(s), Oral, Daily (more content not included)... [facility] Comment on above: Result Comment: Elec tronically Signed By: Oni MCKEON MD\.br\Date and Time Signed: 04/24/25 10:53 EDT\.br\Electronically Co-Signed By: Nettie Wolff\.br\Date and Time Co-Signed: 04/24/25 10:52 EDT Provider Letteron 03-08-2025 Provider Letter Provider Letter March 08, 2025 [address]I [address]Z [address] [place] [id number] CHIKI JUAREZ 1945 Dear Chiki , We have been trying to reach you with no success. It is important that you return our call regarding your discharge upon receiving this letter. Also, at the time of your call, please provide us with your current information. Thank you for your prompt attention to this matter. Sincerely, Tres VargasMiddle School Sports Coach [phone] [facility] Reminderson 02-23-2025 Reminders Reminders From: Marlys Carcamo [...] below results. pt notified. Send rx to [facility] Frannie From: Rose Marie Sauceda (B - Clinical) To: Marlys Carcamo; Sent: 02/23/2025 14:49:36 EDT Show up: 02/23/2025 14:49:00 EDT Subject: RE: Ambulatory Reminder Normal [facility] .Interpretation:on Interpretation: Comment Invalid Interpretation Code [facility] Comment on above: Result Comment: Not infected with HCV unless early or acute infection is suspected (which may be delayed in an immunocompromised individual), or other evidence exists to indicate HCV infection. Performed at: [facility] [place] [id number] PhD Sahra Robledo Performed By: #### 2 [id number] #### [facility] [address] [place] [address] HCV Antibody RFX to Rasta Watts 02-19-2025 HCV Ab Non-Reactive Invalid Interpretation Code Non Reactive [facility] Comment on above: Result Comment: Perf ormed at: [facility] [address] [id number] PhD Sahra Robledo Performed By: #### 2 [id number] #### [facility] [address] [place] [address] CHEMISTRYOrdered By: SYSTEM SYSTEM on 02-16-2025 Albumin [...] (Bld) [Mass fraction] 6.0 % High <=5.9% [facility] ChemAutoSS CMPon 02-16-2025 Albumin [Mass/Vol] 3.8 g/dL Normal 3.3-5.0 [facility] Comment on above: Performed By: #### 2 [id number] #### [facility] [address] [place] [address] Albumin/Globulin [Mass ratio] 1.5 {ratio} Normal 1.1-2.2 [facility] Comment on above: Performed By: #### 2 [id number] #### [facility] [address] [place] [address] Alk Phos 81 Int._Unit/L Normal 21-98 [facility] Comment on above: Performed By: #### 2 [id number] #### [facility] [address] [place] [address] ALT 8 Int._Unit/L Normal 6-46 [facility] Comment on above: Performed By: #### 2 [id number] #### [facility] [address] [place] [address] Anion gap [Moles/Vol] 11 mmol/L Normal 6-16 [facility] Comment on above: Performed By: #### 2 [id number] #### [facility] [address] [place] [address] AST 11 Int._Unit/L Normal 5-43 [facility] Comment on above: Performed By: #### 2 [id number] #### [facility] [address] [place] [address] Bili Total 0.5 mg/dL Normal 0.0-1.1 [facility] Comment on above: Performed By: #### 2 863206 #### [facility] [address] [place] [address] BUN/Creat Ratio 17 No Units Normal 10-20 [facility] Comment on above: Performed By: #### 2 864754 #### [facility] [address] [place] [address] Calcium [Mass/Vol] 8.8 mg/dL Low 8.9-11.1 [facility] Comment on above: Performed By: #### 2 412216 #### [facility] [address] [place] [address] Chloride [Moles/Vol] 104 mmol/L Normal 101-111 [facility] Comment on above: Performed By: #### 2 245094 #### [facility] [address] [place] [address] CO2 [Moles/Vol] 26 mmol/L Normal 21-31 [facility] Comment on above: Performed By: #### 2 286577 #### [facility] [address] [place] [address] Creatinine [Mass/Vol] 1.2 mg/dL Normal 0.5-1.3 [facility] Comment on above: Performed By: #### 2 272756 #### [facility] [address] [place] [address] Globulin (S) [Mass/Vol] 2.6 g/dL Normal 1.4-4.0 [facility] Comment on above: Performed By: #### 2 704519 #### [facility] [address] [place] [address] Glucose [Mass/Vol] 104 mg/dL Normal 55-199 [facility] Comment on above: Performed By: #### 2 198185 #### [facility] [address] [place] [address] Potassium [Moles/Vol] 4.2 mmol/L Normal 3.5-5.3 [facility] Comment on above: Performed By: #### 2 037057 #### [facility] [address] [place] [address] Protein [Mass/Vol] 6.4 g/dL Normal 6.0-7.8 [facility] Comment on above: Performed By: #### 2 520036 #### [facility] [address] [place] [address] Sodium [Moles/Vol] 137 mmol/L Normal 135-145 [facility] Comment on above: Performed By: #### 2 694479 #### [facility] [address] [place] [address] Urea nitrogen [Mass/Vol] 20 mg/dL Normal 5-21 [facility] Comment on above: Performed By: #### 2 498582 #### [facility] [address] [place] [address] PepN1xem 02-16-2025 HbA1c (Bld) [Mass fraction] 6.0 % High <=5.9 [facility] Comment on above: Performed By: #### 7 [id number] #### [facility] [address] [place] [address] Lipid Panelon 02-16-2025 Cholesterol [Mass/Vol] 166 mg/dL Normal 120-200 [facility] Comment on above: Performed By: #### 2 115174 #### [facility] [address] [place] [address] Cholesterol in HDL [Mass/Vol] 35 mg/dL Invalid Interpretation Code [facility] Comment on above: Result Comment: '>= 60 LOW RISK' '<= 40 HIGH RISK' Performed By: #### 2 488266 #### [facility] [address] [place] [address] Cholesterol in LDL [Mass/Vol] 113 mg/dL Normal <=129 [facility] Comment on above: Performed By: #### 2 205737 #### [facility] [address] [place] [address] Cholesterol in VLDL [Mass/Vol] 24 mg/dL Normal 7-40 [facility] Comment on above: Performed By: #### 2 031552 #### [facility] [address] [place] [address] Triglyceride [Mass/Vol] 119 mg/dL Normal <=149 [facility] Comment on above: Performed By: #### 2 798522 #### [facility] [address] [place] [address] TSHon 02-16-2025 TSH Qn 9.04 m[IU]/L High 0.34-5.60 [facility] Comment on above: Performed By: #### 2 029042 #### [facility] [address] [place] [address] eGFRon 02-16-2025 eGFR 62 mL/min/1.73 m2 Normal >=59 [facility] Comment on above: Performed By: #### 1 [id number] #### [facility] [address] [place] [address] Ambulatory Visit Summaryon 0 02-15-2025 Ambulatory Visit [...] calories Your Care Team Attending Physician - Yesenia VENTURA, Pito Davidson Primary Care Physician - Corwin MCELROY, Marlys Valles This Is Your Medications List Misc Prescription [...] Appointments 2024 11:00 AM EDT With: Where: [facility] [address] [address]- Thursday 9:45 AM EDT With: Oni MCKEON MD Where: [facility] [address] [place] [address] 2025 9:30 AM EDT With: Where: [address] [address]- You Need to Complete the Following Comprehensive [...] Every day Oxygen - patient states his radiology transporter just increased this to 4LPM Unchanged potassium chloride (potassium chloride 10 (more content not included)... Normal [facility] Ambulatory Visit Summary Ambulatory Visit Summary [...] Misc Prescription (Electric scooter) Misc Prescription (Handicap Placsorin, 5 years.) Misc Prescription (Nebulizer accessory set) [...] Appointments 2024 11:00 AM EDT With: Where: [address] [address]- Thursday 9:45 AM EDT With: MIKE VENTURA, Oni Sewell Where: [facility] [address] [place] [address]- 2025 9:30 AM EDT With: Where: [address] [address]- You Need to Complete the Following Comprehensive [...] Every day Oxygen - patient states his radiology transporter just increased this to 4LPM Unchanged potassium chloride (potassium chloride 10 mEq Cap-ER) 1 Capsules By Mouth Every day Unchanged sodium chloride (Hyper-Flaco 3.5% inhalation solution) See instructions per neulizer BID, skip one dose with increased swelling in feet- per patient Unchan (more content not included)... Normal [facility] Medicine Office/Clini c Noteon 02-15-2025 [...] of clutter to prevent tripping and/or falling. [place] Advance Directives reviewed, at home. Patient encouraged [...] patient requests, he will have completed at [facility] prior to next PCP visit. Colonoscopy screenings [...] and pulmono (more content not included)... Normal [facility] Comment on above: Result Comment: Elec [...] on Spiriva. sees Dr. Ferro and a radiology transporter in [place] as well. on 4 Liter O2. annual labs ordered. he has not had any water today so he will return for nurse visit. RTC 3 months Ordered: E&M of Est. Patient Low 20-29 Min 29882 2. Back pain (M54.9: Dorsalgia, unspecified) c/o worsening back pain. spine surgeon is not willing to do surgery due to lung condition. will send refill on T3 Ordered: E&M of Est. Patient Low 20-29 Min 71470 3. Former smoker (Z87.891: Personal history of nicotine dependence) continue not smoking Ordered: E&M of Est. Patient Low 20-29 Min 32957 4. BMI 34.0-34.9,adult, (Z68.34: Body mass index [BMI] 34.0-34.9, adult)Body mass index [BMI] 34.0-34.9, adult BMI education Ordered: E&M of Est. Patient Low 20-29 Min 13928 5. Class 1 obesity due to excess calories with body mass index (BMI) of 34.0 to 34.9 in adult (E66.811: Obesity, class 1) see above Ordered: E&M of Est. Patient Low 20-29 Min 550[address] Orders: 1125F Pain severity quantified; pain present [...] Handicap Placard, (more content not included)... Normal [facility] Comment on above: Result Comment: Elec tronically Signed By: Marlys Carcamo\.br\Date and Time Signed: 02/15/25 11:36 EDT No Panel Informationon 02-02 [facility] Ambulatory Visit Summaryon 0 11-24-2024 Ambulatory [...] Appointments Thursday 8:00 AM EDT With: Where: [address] [address]- Thursday 9:00 AM EDT With: Yesenia VENTURA, Pito Davidson Where: [address] [address]- Thursday 9:45 AM EDT With: Oni MCKEON MD Where: [facility] [address] [address]- Medications What How Much When Why Instructions [...] Every day Oxygen - patient states his radiology transporter just increased this to 4LPM Contact prescribing physician if questions or concerns Unchanged potassium chloride (potassium chloride 10 mEq Cap-ER) 1 Capsules By Mouth Every day Contact prescribing physician if questions or concerns Unchanged sodium chloride (Hyper-Flaco 3.5% inhalation solution) See instructions per neulizer BID, skip one dose wi (more content not included)... Normal [facility] Office/Clini c Noteon 11-24-2024 [...] patient is also maintaining follow-ups with a radiology transporter for pulmonary hypertension and noted no new [...] function evaluation conducted. - Scheduled follow-up with radiology transporter for pulmonary hypertension. - Upcoming re-evaluation for [...] pending. Pulmonary hypertension remains stable per routine radiology transporter follow-ups. B-cell lymphoma continues to be ma (more content not included)... Normal [facility] Comment on above: Result Comment: Elec tronically Signed By: Yesenia VENTURA, Pito Davidson\.br\Date and Time Signed: 11/24/24 13:39 EDT No Panel Informationon 11-22 [facility] PROSTATE-SPECIFIC ANTIGEN DI AGNOSTICon 11-22-2024 Prostate specific Ag [Mass/Vol] 0.24 ng/mL NINF - 2.60 ng/mL [facility] Comment on above: Total PSA test metho dology used is the Electrochemiluminescence Immunoassay by [employer]. Total PSA values by differing methodologies cannot be interchanged. Prostate specific Ag [Mass/V ol]on 11-22-2024 Interpretation and review of laboratory results Normal [facility] T4/FTI/T4Uon 11-22-2024 FTI 7 ug/dL 5.3 - 10.8 ug/dL [facility] Interpretation and review of laboratory results Abnormal [facility] T4 [Mass/Vol] 6.1 ug/dL 5.5 - 10.2 ug/dL [facility] T4 uptake [Mass/Vol] 0.87 Low 0.91 - 1.19 [facility] THYROID STIMULATING HORMONEo n 11-22-2024 TSH Qn 2.01 m[IU]/L [facility] TSH Qnon 11-22-2024 Interpretation and review of laboratory results Normal [facility] CNOVSPon 11-21-2024 CNOVSP Visit (SP) Office (H EMASA) -- CHIKI JUAREZ ([id number]) 1945 M Date Time Provider Department 11/21/24 [...] influenza A infection and was hospitalized at [facility]. Apparently his symptoms were severe enough that [...] Resp 24 (more content not included)... Normal [facility] PSA SerPl-ncon 11-21-2024 Prostate specific Ag [Mass/Vol] 0.24 ng/mL Normal <2.60 [facility] Comment on above: Order Comment: Speci men Type: BLOOD SPECIMENOrdering Facility: [facility] Address: [address] [place] [address] Result Comment: Tota l PSA test methodology used is the Electrochemiluminescence Immunoassay by [employer]. Total PSA values by differing methodologies cannot be interchanged. Performed By: #### 2 857-1 ####[facility] LABCLIA [id number] [place] [address] [place] T4/FTI/T4Uon 11-21-2024 FTI 7.0 ug/dL Normal 5.3-10.8 [facility] Comment on above: Order Comment: Speci men Type: BLOOD SPECIMENOrdering Facility: [facility] Address: [address] [place] [address] Performed By: #### T 4FPB, 6-3 ####[facility] LABCLIA [id number] [place] [address] [place] T4 [Mass/Vol] 6.1 ug/dL Normal 5.5-10.2 [facility] Comment on above: Order Comment: Speci men Type: BLOOD SPECIMENOrdering Facility: [facility] Address: [address] [place] [address] Performed By: #### T 4FPB, 6-3 ####[facility] LABCLIA [id number] [place] [address] [place] T4 uptake [Mass/Vol] 0.87 Low 0.91-1.19 [facility] Comment on above: Order Comment: Speci men Type: BLOOD SPECIMENOrdering Facility: [facility] Address: [address] [place] [address] Performed By: #### T 4FPB, 6-3 ####[facility] LABCLIA [id number] [place] [id number] [place] TSH SerPl-aCncon 11-21-2024 TSH Qn 2.010 m[IU]/L Normal 0.270-4.200 [facility] Comment on above: Order Comment: Speci men Type: BLOOD SPECIMENOrdering Facility: [facility] Address: [address] [place] [address] Performed By: #### T 4FTI, 3016-3 ####[facility] LABCLIA [id number] [place] [address] [place] CBC W Auto Differential pane l (Bld)on 11-16-2024 Anisocytosis Ql (Bld) Present [facility] Basophils (Bld) [#/Vol] 0.05 10*3/uL NINF [facility] Basophils/100 WBC (Bld) 0.9 % [facility] Differential cell count method Nom (Bld) Manual [facility] Eosinophils (Bld) [#/Vol] 0.05 10*3/uL [facility] Eosinophils/100 WBC (Bld) 0.9 % [facility] Erythrocyte distribution width (RBC) [Ratio] 16.2 % High 11.5 - 15.0 % [facility] Hematocrit (Bld) [Volume fraction] 35.7 % Low 39.0 - 51.0 % [facility] Hemoglobin (Bld) [Mass/Vol] 11.5 g/dL Low 13.0 - 17.0 g/dL [facility] Interpretation and review of laboratory results Abnormal [facility] Lymphocytes (Bld) [#/Vol] 1.14 10*3/uL [facility] Lymphocytes/100 WBC (Bld) 20.5 % [facility] MCH (RBC) [Entitic mass] 34.4 pg High 26.0 - 34.0 pg [facility] MCHC (RBC) [Mass/Vol] 32.2 g/dL 30.5 - 36.0 g/dL [facility] MCV (RBC) [Entitic vol] 106.9 fL High 80.0 - 100.0 fL [facility] [place] % 2.6 % [facility] Monocytes (Bld) [#/Vol] 1.85 10*3/uL High NINF [facility] Monocytes/100 WBC (Bld) 33.3 % [facility] Myelo % 6.8 % [facility] Neutrophils (Bld) [#/Vol] 1.94 10*3/uL [facility] Neutrophils/100 WBC (Bld) 35 % [facility] Nucleated RBC (Bld) [#/Vol] NINF [facility] Nucleated RBC/100 WBC (Bld) [Ratio] 0 % /100 WBC [facility] Ovalocytes LM Ql (Bld) Few [facility] Platelet mean volume (Bld) [Entitic vol] 10.9 fL 9.0 - 12.7 fL [facility] Platelets (Bld) [#/Vol] 186 10*3/uL [facility] Platelets Estimate (Bld) [#/Vol] Adequate [facility] Polychromasia LM Ql (Bld) Slight [facility] RBC (Bld) [#/Vol] 3.34 10*6/uL Low 4.20 - 6.0 0 m/uL [facility] Red Cell Morph Reviewed: see result s of individual morphologies [facility] WBC (Bld) [#/Vol] 5.55 10*3/uL [facility] WBC Left Shift Ql (Bld) Present [facility] This is an appended report. These results have been appended to a previously verified report. [facility] PROTEIN, TOTALon 11-16-2024 Protein [Mass/Vol] 6.8 g/dL 6.3 - 8.0 g/dL [facility] Protein [Mass/Vol]on 025 Interpretation and review of laboratory results Normal [facility] CBC W Auto Differential pane l (Bld)on 11-15-2024 Anisocytosis Ql (Bld) Present Normal [facility] Comment on above: Order Comment: Speci men Type: BLOOD SPECIMENOrdering Facility: [facility] Address: [address] [place] [address] Performed By: #### 5 7021-8 ####ABDIRAHMAN [facility] LABCLIA [id number] [place], [place] [address] LABCL[facility] [id number] [address] [address] [place] Basophils (Bld) [#/Vol] 0.05 10*3/uL Normal <0.11 [facility] Comment on above: Order Comment: Speci men Type: BLOOD SPECIMENOrdering Facility: [facility] Address: [address] [place] [address] Performed By: #### 5 7021-8 ####[facility]ITAL[facility] LABCLIA [id number] [address] LABCLIA [id number] [place] [address] [place] Basophils/100 WBC (Bld) 0.9 % Normal [facility] Comment on above: Order Comment: Speci men Type: BLOOD SPECIMENOrdering Facility: [facility] Address: [address] [place] [address] Performed By: #### 5 7021-8 ####[facility]ITAL[facility] LABCLIA [id number] [address] LABCLIA [id number] [place] [address] [place] Differential cell count method Nom (Bld) Manual Normal [facility] Comment on above: Order Comment: Speci men Type: BLOOD SPECIMENOrdering Facility: [facility] Address: [address] [place] [address] Performed By: #### 5 7021-8 ####[facility] LABCLIA [id number] [address] LABCLIA [id number] [place] [address] [place] Eosinophils (Bld) [#/Vol] 0.05 10*3/uL Normal <0.46 [facility] Comment on above: Order Comment: Speci men Type: BLOOD SPECIMENOrdering Facility: [facility] Address: [address] [place] [address] Performed By: #### 5 7021-8 ####[facility] LABCLIA [id number] [address] LABCLIA [id number] [place] [address] [place] Eosinophils/100 WBC (Bld) 0.9 % Normal [facility] Comment on above: Order Comment: Speci men Type: BLOOD SPECIMENOrdering Facility: [facility] Address: [address] [place] [address] Performed By: #### 5 7021-8 ####[facility] LABCLIA [id number] [address] LABCLIA [id number] [place] [address] [place] Erythrocyte distribution width (RBC) [Ratio] 16.2 % High 11.5-15.0 [facility] Comment on above: Order Comment: Speci men Type: BLOOD SPECIMENOrdering Facility: [facility] Address: [address] [place] [address] Performed By: #### 5 7021-8 ####[facility] LABCLIA [id number] [address] LABCLIA [id number] [place] [address] [place] Hematocrit (Bld) [Volume fraction] 35.7 % Low 39.0-51.0 [facility] Comment on above: Order Comment: Speci men Type: BLOOD SPECIMENOrdering Facility: [facility] Address: [address] [place] [address] Performed By: #### 5 7021-8 ####[facility] LABCLIA [id number] [address] LABCLIA [id number] [place] [address] [place] Hemoglobin (Bld) [Mass/Vol] 11.5 g/dL Low 13.0-17.0 [facility] Comment on above: Order Comment: Speci men Type: BLOOD SPECIMENOrdering Facility: [facility] Address: [address] [place] [address] Performed By: #### 5 7021-8 ####[facility] LABCLIA [id number] [place] [id number] LABCLIA [id number] [place] [address] [place] Lymphocytes (Bld) [#/Vol] 1.14 10*3/uL Normal 1.00-4.00 [facility] Comment on above: Order Comment: Speci men Type: BLOOD SPECIMENOrdering Facility: [facility] Address: [address] [place] [address] Performed By: #### 5 7021-8 ####[facility] LABCLIA [id number] [address] LABCLIA [id number] [place] [address] [place] Lymphocytes/100 WBC (Bld) 20.5 % Normal [facility] Comment on above: Order Comment: Speci men Type: BLOOD SPECIMENOrdering Facility: [facility] Address: [address] [place] [address] Performed By: #### 5 7021-8 ####[facility] LABCLIA [id number] [place] [id number] LABCLIA [id number] [place] [address] [place] MCH (RBC) [Entitic mass] 34.4 pg High 26.0-34.0 [facility] Comment on above: Order Comment: Speci men Type: BLOOD SPECIMENOrdering Facility: [facility] Address: [address] [place] [address] Performed By: #### 5 7021-8 ####[facility] LABCLIA [id number] [address] LABCLIA [id number] [address] [address] [place] MCHC (RBC) [Mass/Vol] 32.2 g/dL Normal 30.5-36.0 [facility] Comment on above: Order Comment: Speci men Type: BLOOD SPECIMENOrdering Facility: [facility] Address: [address] [place] [address] Performed By: #### 5 7021-8 ####[facility] LABCLIA [id number] [place] [id number] LABCLIA [id number] [address] [address] [place] MCV (RBC) [Entitic vol] 106.9 fL High 80.0-100.0 [facility] Comment on above: Order Comment: Speci men Type: BLOOD SPECIMENOrdering Facility: [facility] Address: [address] [place] [address] Performed By: #### 5 7021-8 ####[facility] LABCLIA [id number] [address] LABCLIA [id number] [place] [address] [place] Metamyelocytes/100 WBC (Bld) 2.6 % Normal [facility] Comment on above: Order Comment: Speci men Type: BLOOD SPECIMENOrdering Facility: [facility] Address: [address] [place] [address] Performed By: #### 5 7021-8 ####[facility] LABCLIA [id number] [place] [id number] LABCLIA [id number] [place] [address] [place] Monocytes (Bld) [#/Vol] 1.85 10*3/uL High <0.87 [facility] Comment on above: Order Comment: Speci men Type: BLOOD SPECIMENOrdering Facility: [facility] Address: [address] [place] [address] Performed By: #### 5 7021-8 ####[facility] LABCLIA [id number] [place] [id number] LABCLIA [id number] [facility] [address] [address] [place] Monocytes/100 WBC (Bld) 33.3 % Normal [facility] Comment on above: Order Comment: Speci men Type: BLOOD SPECIMENOrdering Facility: [facility] Address: [address] [place] [address] Performed By: #### 5 7021-8 ####[facility] LABCLIA [id number] [address] LABCLIA [id number] [place] [address] [place] MYELO% 6.8 % Normal [facility] Comment on above: Order Comment: Speci men Type: BLOOD SPECIMENOrdering Facility: [facility] Address: [address] [place] [address] Performed By: #### 5 7021-8 ####[facility] LABCLIA [id number] [address] LABCLIA [id number] [facility] [place] [id number] [place] Neutrophils (Bld) [#/Vol] 1.94 10*3/uL Normal 1.45-7.50 [facility] Comment on above: Order Comment: Speci men Type: BLOOD SPECIMENOrdering Facility: [facility] Address: [address] [place] [address] Performed By: #### 5 7021-8 ####[facility] LABCLIA [id number] [address] LABCLIA [id number] [facility] [place] [id number] [place] Neutrophils/100 WBC (Bld) 35.0 % Normal [facility] Comment on above: Order Comment: Speci men Type: BLOOD SPECIMENOrdering Facility: [facility] Address: [address] [place] [address] Performed By: #### 5 7021-8 ####[facility] LABCLIA [id number] [address] LABCLIA [id number] [place] [address] [place] Nucleated RBC (Bld) [#/Vol] 10*3/uL Normal <0.01 [facility] Comment on above: Order Comment: Speci men Type: BLOOD SPECIMENOrdering Facility: [facility] Address: [address] [place] [address] Performed By: #### 5 7021-8 ####[facility] LABCLIA [id number] [address] LABCLIA [id number] [place] [address] [place] Nucleated RBC/100 WBC (Bld) [Ratio] 0.0 /100 WBC Normal [facility] Comment on above: Order Comment: Speci men Type: BLOOD SPECIMENOrdering Facility: [facility] Address: [address] [place] [address] Performed By: #### 5 7021-8 ####[facility] LABCLIA [id number] [address] LABCLIA [id number] [place] [address] [place] Ovalocytes LM Ql (Bld) Few Normal [facility] Comment on above: Order Comment: Speci men Type: BLOOD SPECIMENOrdering Facility: [facility] Address: [address] [place] [address] Performed By: #### 5 7021-8 ####[facility] LABCLIA [id number] [place] [id number] LABCLIA [id number] [address] [place] [address] [place] Platelet mean volume (Bld) [Entitic vol] 10.9 fL Normal 9.0-12.7 [facility] Comment on above: Order Comment: Speci men Type: BLOOD SPECIMENOrdering Facility: [facility] Address: [address] [place] [address] Performed By: #### 5 7021-8 ####[facility] LABCLIA [id number] [place] [id number] LABCLIA [id number] [address] [address] [place] Platelets (Bld) [#/Vol] 186 10*3/uL Normal 150-400 [facility] Comment on above: Order Comment: Speci men Type: BLOOD SPECIMENOrdering Facility: [facility] Address: [address] [place] [address] Performed By: #### 5 7021-8 ####[facility] LABCLIA [id number] [place] [id number] LABCLIA [id number] [address] [address] [place] Platelets Estimate (Bld) [#/Vol] Adequate Normal [facility] Comment on above: Order Comment: Speci men Type: BLOOD SPECIMENOrdering Facility: [facility] Address: [address] [place] [address] Performed By: #### 5 7021-8 ####[facility] LABCLIA [id number] [place] [id number] LABCLIA [id number] [address] [address] [place] Polychromasia LM Ql (Bld) Slight Normal [facility] Comment on above: Order Comment: Speci men Type: BLOOD SPECIMENOrdering Facility: [facility] Address: [address] [place] [address] Performed By: #### 5 7021-8 ####[facility] LABCLIA [id number] [place] [id number] LABCLIA [id number] [address] [address] [place] RBC (Bld) [#/Vol] 3.34 10*6/uL Low 4.20-6.00 [facility] Comment on above: Order Comment: Speci men Type: BLOOD SPECIMENOrdering Facility: [facility] Address: [address] [place] [address] Performed By: #### 5 7021-8 ####[facility] LABCLIA [id number] [address] LABCLIA [id number] [place] [address] [place] RED CELL MORPH Reviewed: see result s of individual morphologies Normal [facility] Comment on above: Order Comment: Speci men Type: BLOOD SPECIMENOrdering Facility: [facility] Address: [address] [place] [address] Performed By: #### 5 7021-8 ####[facility] LABCLIA [id number] [place] [id number] LABCLIA [id number] [place] [address] [place] WBC (Bld) [#/Vol] 5.55 10*3/uL Normal 3.70-11.00 [facility] Comment on above: Order Comment: Speci men Type: BLOOD SPECIMENOrdering Facility: [facility] Address: [address] [place] [address] Performed By: #### 5 7021-8 ####[facility] LABCLIA [id number] [place] [id number] LABCLIA [id number] [place] [address] [place] WBC Left Shift Ql (Bld) Present Normal [facility] Comment on above: Order Comment: Speci men Type: BLOOD SPECIMENOrdering Facility: [facility] Address: [address] [place] [address] Performed By: #### 5 7021-8 ####[facility] LABCLIA [id number] [place], [place] [address]NEY[facility]OH[facility] LABCLIA [id number] [place] [address] [place] [address] CHEST W IVCONon CT CHEST W IVCON * * *Final Report* * * DATE OF EXAM: Nov 15 2024 3:21PM [facility] 0539 - CT CHEST W IVCON / [...] abdomen: Visualized upper abdomen is grossly unremarkable. Business And Financial Counsel (topogram) images: Unremarkable. IMPRESSION: No lymphadenopathy in [...] any questions regarding this interpretation, please call [phone]. If you are unable to reach us at the number above, please feel free to contact [facility] eRadiology at [phone]. [id number] Normal [facility] CT Chest W contrast Shantel IMPRESSION: [...] any questions regarding this interpretation, please call [phone]. If you are unable to reach us at the number above, please feel free to contact [facility]Radiology at [phone]. DIVISION OF RADIOLOGY * * *Final Report* * * DATE OF EXAM: Nov 15 2024 3:21PM [facility] 0539 - CT CHEST W IVCON / [...] abdomen: Visualized upper abdomen is grossly unremarkable. Business And Financial Counsel (topogram) images: Unremarkable. DIVISION OF RADIOLOGY Provider, [facility] - 11/15/2024 * * *Final Report* * * DATE OF EXAM: Nov 15 2024 3:21PM [facility] 0539 - CT CHEST W IVCON / [...] abdomen: Visualized upper abdomen is grossly unremarkable. Business And Financial Counsel (topogram) images: Unremarkable. IMPRESSION IMPRESSION: No lymphadenopathy [...] any questions regarding this interpretation, please call [phone]. If you are unable to reach us at the number above, please feel free to contact [facility] eRadiology at [phone]. [facility] Radiology Study observation (narrative) [facility] CT Chest W contrast IVOrdere d By: [facility]cf Provider on 11-15-2024 [facility] Comp Metab 2000 Pnl SerPlon 11-15-2024 Protein [Mass/Vol] 6.8 g/dL Normal 6.3-8.0 [facility] Comment on above: Order Comment: Speci men Type: BLOOD SPECIMENOrdering Facility: [facility] Address: [address] [place] [address] Performed By: #### 2 4323-8 ####[facility] LABCLIA [id number] [place] [address] Performed By: #### 2 885-2 ####[facility] LABCLIA [id number] [place] [address] [place] Comprehensive metabolic 2000 panelOrdered By: Niki Lynn on 11-15-2024 Albumin [Mass/Vol] 3.8 g/dL Low 3.9 - 4.9 g/dL [facility] ALP [Catalytic activity/Vol] 83 U/L 38 - 113 U/L [facility] ALT [Catalytic activity/Vol] 9 U/L Low 10 - 54 U/L [facility] Anion gap [Moles/Vol] 12 mmol/L 8 - 15 mmol/L [facility] AST [Catalytic activity/Vol] 14 U/L 14 - 40 U/L [facility] Bilirubin [Mass/Vol] 0.4 mg/dL 0.2 - 1 .3 mg/dL [facility] Calcium [Mass/Vol] 9.3 mg/dL 8.5 - 10. 2 mg/dL [facility] Chloride [Moles/Vol] 104 mmol/L 98 - 10 7 mmol/L [facility] CO2 [Moles/Vol] 24 mmol/L 22 - 30 mmol/L [facility] Creatinine [Mass/Vol] 1.27 mg/dL High 0.73 - 1.22 mg/dL [facility] GFR/1.73 sq M.predicted among non-blacks MDRD (S/P/Bld) [Vol rate/Area] 58 mL/min/{1.73_m2} Low - PINF [facility] Comment on above: Estimated Glomerular Filtration Rate [...] 110 mg/dL High 74 - 99 mg/dL [facility] Comment on above: The [place] [employer] (ADA) provides guidance for [...] Standards of Medical Care in Diabetes 2016, [place] [employer]. Diabetes Care. 2016.39(Suppl 1). Interpretation and review of laboratory results Abnormal [facility] Potassium [Moles/Vol] 4 mmol/L 3.7 - 5.1 mmol/L [facility] Protein [Mass/Vol] 6.8 g/dL 6.3 - 8.0 g/dL [facility] Sodium [Moles/Vol] 140 mmol/L 136 - 144 mmol/L [facility] Urea nitrogen [Mass/Vol] 21 mg/dL 9 - 24 mg/dL [facility] Comprehensive metabolic 2000 panelon 11-15-2024 Albumin [Mass/Vol] 3.8 g/dL Low 3.9-4.9 [facility] Comment on above: Order Comment: Speci men Type: BLOOD SPECIMENOrdering Facility: [facility] Address: [address] [place] [address] Performed By: #### 2 4323-8 ####[facility] LABCL[facility] [id number] [place] [address] ALP [Catalytic activity/Vol] 83 U/L Normal 38-113 [facility] Comment on above: Order Comment: Speci men Type: BLOOD SPECIMENOrdering Facility: [facility] Address: [address] [place] [address] Performed By: #### 2 4323-8 ####[facility]CL[facility] [id number] [place] [address] ALT [Catalytic activity/Vol] 9 U/L Low 10-54 [facility] Comment on above: Order Comment: Speci men Type: BLOOD SPECIMENOrdering Facility: [facility] Address: [address] [place] [address] Performed By: #### 2 4323-8 ####[facility]CL[facility] [id number] [place] [address] Anion gap [Moles/Vol] 12 mmol/L Normal 8-15 [facility] Comment on above: Order Comment: Speci men Type: BLOOD SPECIMENOrdering Facility: [facility] Address: [address] [place] [address] Performed By: #### 2 4323-8 ####[facility]CL[facility] [id number] [place] [address] AST [Catalytic activity/Vol] 14 U/L Normal 14-40 [facility] Comment on above: Order Comment: Speci men Type: BLOOD SPECIMENOrdering Facility: [facility] Address: [address] [place] [address] Performed By: #### 2 4323-8 ####[facility] LABCLIA [id number] [place] [address] Bilirubin [Mass/Vol] 0.4 mg/dL Normal 0.2-1.3 [facility] Comment on above: Order Comment: Speci men Type: BLOOD SPECIMENOrdering Facility: [facility] Address: [address] [place] [address] Performed By: #### 2 4323-8 ####[facility]CLIA [id number] [place] [address] Calcium [Mass/Vol] 9.3 mg/dL Normal 8.5-10.2 [facility] Comment on above: Order Comment: Speci men Type: BLOOD SPECIMENOrdering Facility: [facility] Address: [address] [place] [address] Performed By: #### 2 4323-8 ####[facility]CL[facility] [id number] [place] [address] Chloride [Moles/Vol] 104 mmol/L Normal 98-107 [facility] Comment on above: Order Comment: Speci men Type: BLOOD SPECIMENOrdering Facility: [facility] Address: [address] [place] [address] Performed By: #### 2 4323-8 ####[facility]CLIA [id number] [place] [address] CO2 [Moles/Vol] 24 mmol/L Normal 22-30 [facility] Comment on above: Order Comment: Speci men Type: BLOOD SPECIMENOrdering Facility: [facility] Address: [address] [place], [place] [id number] Performed By: #### 2 4323-8 ####[facility]CLIA [id number] [place] [address] Creatinine [Mass/Vol] 1.27 mg/dL High 0.73-1.22 [facility] Comment on above: Order Comment: Speci men Type: BLOOD SPECIMENOrdering Facility: [facility] Address: [address] [place] [address] Performed By: #### 2 4323-8 ####[facility]CLIA [id number] [place] [address] Creatinine and Glomerular filtration rate.predicted panel (S/P/Bld) 58 mL/min/1.73m??? Low >=60 [facility] Comment on above: Order Comment: Liliya hadley Type: BLOOD SPECIMENOrdering Facility: [facility] Address: [address] [place] [address] Result Comment: Ary mated Glomerular Filtration Rate [...] actual GFR. Performed By: #### 2 4323-8 ####[facility] LABCLIA [id number] [place] [address] Glucose [Mass/Vol] 110 mg/dL High 74-99 [facility] Comment on above: Order Comment: Liliya hadley Type: BLOOD SPECIMENOrdering Facility: [facility] Address: [address] [place] [address] Result Comment: The [place] [employer] (ADA) provides guidance for cutoff [...] Standards of Medical Care in Diabetes 2016, [place] [employer]. Diabetes Care. 2016.39(Suppl 1). Performed By: #### 2 4323-8 ####[facility]CLIA [id number] [place] [address] Potassium [Moles/Vol] 4.0 mmol/L Normal 3.7-5.1 [facility] Comment on above: Order Comment: Speci men Type: BLOOD SPECIMENOrdering Facility: [facility] Address: [address] [place] [address] Performed By: #### 2 4323-8 ####[facility]CLIA [id number] [place] [address] Sodium [Moles/Vol] 140 mmol/L Normal 136-144 [facility] Comment on above: Order Comment: Speci men Type: BLOOD SPECIMENOrdering Facility: [facility] Address: [address] [place] [address] Performed By: #### 2 4323-8 ####[facility]CLIA [id number] [place] [address] Urea nitrogen [Mass/Vol] 21 mg/dL Normal 9-24 [facility] Comment on above: Order Comment: Speci men Type: BLOOD SPECIMENOrdering Facility: [facility] Address: [address] [place] [address] Performed By: #### 2 4323-8 ####[facility] LABCLIA [id number] [place] [address] IMMUNOFIXATION SCREEN, SERUM on 11-15-2024 MPA RESULT No M protein is identified. Normal No M protein is identified. [facility] Comment on above: Order Comment: Speci men Type: BLOOD SPECIMENOrdering Facility: [facility] Address: [address] [place] [address] Performed By: #### I [facility] ####[facility] LABCLIA [id number] [address] [address] [place] STAFF REVIEW (MPA) Reviewed by Xiomara powell M.D. Normal [facility] Comment on above: Order Comment: Speci men Type: BLOOD SPECIMENOrdering Facility: [facility] Address: [address] [place] [address] Performed By: #### I FESC ####[facility] LABCLIA [id number] [place] [address] [place] IMMUNOGLOBULINS,IGG,IGA,IGMo n 11-15-2024 IgA [Mass/Vol] 127 mg/dL Normal 70-400 [facility] Comment on above: Order Comment: Speci men Type: BLOOD SPECIMENOrdering Facility: [facility] Address: [address] [place] [address] Performed By: #### S ERIMM ####[facility] LABIA [id number] [place] [address] [place] IgG [Mass/Vol] 1016 mg/dL Normal 700-1600 [facility] Comment on above: Order Comment: Speci men Type: BLOOD SPECIMENOrdering Facility: [facility] Address: [address] [place] [address] Performed By: #### S ERIMM ####[facility] LABIA [id number] [place] [address] [place] IgM [Mass/Vol] 109 mg/dL Normal 40-230 [facility] Comment on above: Order Comment: Speci men Type: BLOOD SPECIMENOrdering Facility: [facility] Address: [address] [place] [address] Performed By: #### S ERIMM ####[facility] LABIA [id number] [place] [address] [place] KAPPA/ARDON,FREE,SERon 2024 Immunoglobulin light chains.kappa.free (S) [Mass/Vol] 27.0 mg/L High 3.3-19.4 [facility] Comment on above: Order Comment: Speci men Type: BLOOD SPECIMENOrdering Facility: [facility] Address: [address] [place] [address] Result Comment: Rare ly, increased serum free light chains levels may not be detected or accurately quantified due to prozone phenomenon or in high viscosity samples using this immunoturbidimetric assay. Correlation with other laboratory results and clinical findings is recommended. The [place] Free Light Chain was performed using the Binding Site Optilite immunoturbidimetric method. Result obtained with different assay methods or kits cannot be used interchangeably. Performed By: #### K LFRS ####[facility] LABCLIA [id number] [place] [address] [place] Immunoglobulin light chains.kappa/Immunog lobulin light chains.lambda (S) [Mass ratio] 1.66 High 0.26-1.65 [facility] Comment on above: Order Comment: Speci men Type: BLOOD SPECIMENOrdering Facility: [facility] Address: [address] [place] [address] Performed By: #### K LFRS ####[facility] LABCLIA [id number] [address] Immunoglobulin light chains.lambda.free [Mass/Vol] 16.3 mg/L Normal 5.7-26.3 [facility] Comment on above: Order Comment: Speci men Type: BLOOD SPECIMENOrdering Facility: [facility] Address: [address] [place] [address] Result Comment: Rare ly, increased serum free [...] used interchangeably. Performed By: #### K LFRS ####[facility] LABCLIA [id number] [place] [address] [place] PROTEIN ELECTROPHORESIS SERU M (P)on 11-15-2024 Albumin [Mass/Vol] 3.85 g/dL Normal 3.43-5.41 [facility] Comment on above: Order Comment: Speci men Type: BLOOD SPECIMENOrdering Facility: [facility] Address: [address] [place] [address] Performed By: #### L [id number] ####[facility] LABCLIA [id number] [place] [address] [place] Alpha 1 globulin Elph [Mass/Vol] 0.40 g/dL Normal 0.18-0.43 [facility] Comment on above: Order Comment: Speci men Type: BLOOD SPECIMENOrdering Facility: [facility] Address: [address] [place] [address] Performed By: #### L [id number] ####[facility] LABCLIA [id number] [place] [address] [place] Alpha 2 globulin Elph [Mass/Vol] 0.80 g/dL Normal 0.42-0.98 [facility] Comment on above: Order Comment: Speci men Type: BLOOD SPECIMENOrdering Facility: [facility] Address: [address] [place] [address] Performed By: #### L [id number] ####[facility] LABCLIA [id number] [place] [address] [place] Beta globulin Elph [Mass/Vol] 0.82 g/dL Normal 0.61-1.17 [facility] Comment on above: Order Comment: Speci men Type: BLOOD SPECIMENOrdering Facility: [facility] Address: [address] [place] [address] Performed By: #### L [id number] ####[facility] LABCLIA [id number] [place] [id number] [place] Gamma globulin Elph [Mass/Vol] 0.93 g/dL Normal 0.53-1.51 [facility] Comment on above: Order Comment: Speci men Type: BLOOD SPECIMENOrdering Facility: [facility] Address: [address] [place] [address] Performed By: #### L [id number] ####[facility] LABCLIA [id number] [address] [place] M-PROTEIN LOCATION Normal [facility] Comment on above: Order Comment: Speci men Type: BLOOD SPECIMENOrdering Facility: [facility] Address: [address] [place] [address] Result Comment: Not Applicable. Performed By: #### L [id number] ####[facility] LABCLIA [id number] [address] [place] Protein Fractions [Interp] No definitive M protein is identified on protein electrophoresis. Normal No definitive M protein is identified on protein electrophore sis. [facility] Comment on above: Order Comment: Speci men Type: BLOOD SPECIMENOrdering Facility: [facility] Address: [address] [place] [address] Performed By: #### L [id number] ####[facility] LABIA [id number] [address] OF [facility] Protein.monoclonal Elph [Mass/Vol] 0.00 g/dL Normal <=0.00 [facility] Comment on above: Order Comment: Speci men Type: BLOOD SPECIMENOrdering Facility: [facility] Address: [address] [place] [address] Performed By: #### L [id number] ####[facility] LABCLIA [id number] [place] [address] [place] SPE STAFF REVIEW Reviewed by Xiomara powell M.D. Normal [facility] Comment on above: Order Comment: Speci men Type: BLOOD SPECIMENOrdering Facility: [facility] Address: [address] [place] [address] Performed By: #### L [id number] ####[facility] LABCLIA [id number] [place] [id number] [place] 36on 11-07-2024 36 Regarding echo resul t from 11/04/2024: MD Mayra Wellington MA His echocardiogram shows stable findings. Follow-up as planned. Patient made aware. [facility] Office Visiton 10-21-2024 Follow-up visit [id number] Tremaine Juarez 1945 M Date Provider Department Center 10/21/2024 367-DANIELLA EASTON KRISTEN Pulido Family History Problem Relation Age of Onset Stroke Father Family Status - Relation Status Age at Father Level of Service:[address] [place] OFFICE/OUTPATIENT ESTABLISHED LOW MDM 20 MIN [facility] CNPNon 10-14-2024 CNPN Telephone (HEMTSA) -- CHIKI JUAREZ ([id number]) 1945 M Date Time Provider Department 10/14/24 [...] [C83.30] Order(s):COMPREHENSIVE METABOLIC PANEL [SQCMP] Order #: [id number] FUTURE COMPLETE BLOOD COUNT AND DIFFERENTIAL [SQCBCDIF] Order #: [id number] FUTURE PROTEIN ELECTROPHORESIS SERUM W/INTERP [SQSEPG] Order #: [id number] FUTURE MONOCLONAL PROTEIN, SERUM (BLOOD) [SQSERMPA] Order #: [id number] FUTURE Prescriptions as of 10/14/2024 - TEZSPIRE [...] Encounter Status:Closed by ARABELLA MANDUJANO on 10/14/24 [facility] Ambulatory Visit Summaryon 0 08-25-2024 Ambulatory [...] Follow-Up Appointments 2024 1:15 PM EDT With: Yesenia VENTURA, Pito Davidson Where: [address] [address]- Thursday 8:00 AM EDT With: Where: [address] [address]- Thursday 9:45 AM EDT With: MIKE VENTURA, Oni Sewell Where: [facility] [address] [place] [address]- Medications What How Much When Why Instructions [...] Every day Oxygen - patient states his radiology transporter just increased this to 4LPM Unchanged potassium [...] prostate cance (more content not included)... Normal [facility] Office/Clini c Noteon 08-25-2024 [...] to trialing Zyrtec for congestion relief. The radiology transporter, overseeing ongoing respiratory management, is scheduled for [...] disease, unspecified) Monitor exacerbation pattern and consult radiology transporter regarding chronic antibiotic therapy approval. Explore potential for chronic Zyrtec use for congestion relief upon radiology transporter's input. 4. Chronic diastolic heart failure (I50.32: [...] obstruction Card (more content not included)... Normal [facility] Comment on above: Result Comment: Elec tronically Signed By: Yesenia VENTURA, Pito Davidson\.br\Date and Time Signed: 08/25/24 12:44 EST No Panel InformationOrdered By: Malou Wynne on 08-04-2024 [facility] Ambulatory Visit Summaryon 1 4 Ambulatory Visit Summary Ambulatory Visit Summary CHIKI [...] PM EST With: Pito Patterson MD Where: [address] [address]- Thursday 8:00 AM EDT With: Where: [facility] [address] [address]- Thursday 9:45 AM EDT With: MIKE VENTURA, Oni Sewell Where: [facility] [address] [place] [address]- Medications What How Much When Why Instructions [...] to excess calories in adult Former smoker Lissa Macias, 5 years. Unchanged Misc Prescription (Nebulizer accessory set) See instructions Hypothyroid Prostate nodule Neuropathy, arm COPD with asthma pt to use nebulizer as prescribed for COPD Unchanged montelukast (montelukast 10 mg Tab) Unchanged Oxygen (Oxygen - for Home) 4 Liter/minute Every day Oxygen - patient states his radiology transporter just increased this to 4LPM Unchanged potassium [...] lymphoma Histor (more content not included)... Normal [facility] Office/Clini c Noteon 07-13-2024 [...] day(s), # 6 tab(s), Refills(s) 0, Pharmacy: [facility]/pharmacy #[id number], 168, cm, 07/13/24 10:34:00 EST, Height/Length Dosing, 101.9, kg, 07/13/24 10:34:00 EST, Weight Dosing methylPREDNISolone, = 1 packet(s), Oral, As Directed, as directed on package labeling, X 6 day(s), # 21 tab(s), Refills(s) 0, Pharmacy: [facility]/pharmacy #[id number], 168, cm, 07/13/24 10:34:00 EST, Height/Length [...] No qual (more content not included)... Normal [facility] Comment on above: Result Comment: Elec tronically Signed By: MARKUS CERNA CNP\.otf\Date and Time Signed: 07/13/24 10:55 KRZYSZTOF [place] 06-10-2024 RAINA Telephone (DONITA) -- CHIKI JUAREZ ([id number]) 1945 M Date Time Provider Department 06/10/24 VALERIE MAYES During your visit today, we recorded the following information about you: Valerie Mayes RN 06/10/2024 8:[address] Mayra Berg, [facility] called and spoke with BRM yesterday with [...] prior to return visit 11/21/24 SANTI Rojas, [facility] 06/10/2024 10:55 AM Signed A voicemail was left on Chiki's phone to return our call to schedule a CT for November. Shea Kolb [facility] Valerie Mayes RN 06/13/2024 9:36 AM Signed notified and transferred to PSS to schedule CT as recommended prior to return visit with BRM. SANTI Rojas, [facility] 06/13/2024 10:38 AM Signed Patient is scheduled 11/15/24 at 1:30 PM Shea Kolb [facility] Allergies As of Date: 06/10/2024 Noted Allergy Reaction SPIRONOLACTONE 09/18/2021 14 - Other: See Comments Comments: Leg cramps, Hyperkalemia Date Reviewed: 06/06/2024 Reviewed by: Yolanda Montague MA - Fully Assessed Reason for Visit: Pet results [Other] Primary Visit Diagnosis:Localized enlarged lymph nodes [R59.0] Order(s):CT CHEST W IVCON [[id number]] Order #: [id number] FUTURE [] iv contrast (will be provided [...] line spec (more content not included)... Normal [facility] CNOVSPon 06-06-2024 CNOVSP Visit (SP) Office (H EMASA) -- ALTHEACHIKI HERNANDEZ ([id number]) 1945 M Date Time Provider Department 06/06/24 [...] Temp 3 (more content not included)... Normal [facility] 06-01-2024 L Specimen: [id number] Received: 06/01/24 Status: SOUPawan Giron Num: [id number] Spec Type: Surgical Subm Dr: Connor Crawley DO Tissues: A Skin-Other than Cyst, tag, debridement or plastic repair (L CHEEK LESION) B Skin-Other than Cyst, tag, debridement or plastic repair (SCALP LESION) Procedures: HE/8, Gross/Micro L4/2, FS HE/8 Age/ Patient Sex Location Account Attending Physician AnnChiki 79/M [place] [id number] Connor Crawley DO SPEC NUM: [id number] RECD: 06/01/24 STATUS: GABBY GIRON NUM: [id number] MARIAN: 06/01/[address]: Connor Crawley DO ENTERED: 06/01/[address] [facility] [address]: SPEC TYPE: Surgical DEPT: S ENTERED BY: [id number] RECV BY: [id number] ORDERED: HE/8, Gross/Micro L4/2, FS HE/8 ORDERED: [...] the correct patient's name and scalp Specimen: [id number] Received: 06/01/24 Status: GABBY Giron Num: [id number] Spec Type: Surgical Subm Dr: Connor Crawley DO Tissues: A Skin-Other than Cyst, tag, debridement or plastic repair (L CHEEK LESION) B Skin-Other than Cyst, tag, debridement or plastic repair (SCALP LESION) Procedures: HE/, Gross/Micro L4/2, FS Patient: Chiki Juarez [id number] (Continued) Specimen: [id number] Received: 06/01/24 (Continued) Gross Description (Continued) Signed (signature on file) Randy Tillman MD 06/03/24 1151 Specimen: [id number] Received: 06/01/24 Status: GABBY Giron Num: [id number] Spec Type: Surgical Subm Dr: Connor Crawley DO Tissues: A Skin-Other than Cyst, tag, debridement or plastic repair (L CHEEK LESION) B Skin-Other than Cyst, tag, debridement or plastic repair (SCALP LESION) Procedures: HE/8, Gross/Micro L4/2, FS 8 Patient: AnnChiki [id number] (Continued) Specimen: [id number] Received: 06/01/24 (Continued) Gross Description (Continued) lesion [...] Nichols CPT Codes 88 305 x 2 [phone] x 2 Specimen: [id number] Received: 06/01/24 Status: GABBY Katerine Num: [id number] Spec Type: Surgical Subm Dr: Connor Crawley,DO Tissues: A Skin-Other than Cyst, tag, debridement or plastic repair (L CHEEK L (more content not included)... Normal [facility] Provider Letteron 06-01-2024 Provider Letter Provider Letter June 01, [address] [address] : 1945 Dear Kwaku, We have been trying to reach you with no success. It is important that you return our call regarding your mobility scooter upon receiving this letter. Also, at the time of your call, please provide us with your current information. Thank you for your prompt attention to this matter. Sincerely, [address] [address] ext [phone] [facility] Ambulatory Visit Summaryon 1 Ambulatory Visit [...] Follow-Up Appointments Thursday 1:00 PM EST With: Yesenia VENTURA, Pito Davidson Where: [address] [address]- Thursday 8:00 AM EDT With: Where: [address] [address]- Thursday 9:45 AM EDT With: MIKE VENTURA, Oni Sewell Where: [facility] [address] [place] [address]- Medications What How Much When Why Instructions [...] if questions or concerns Unchanged Misc Prescription (Lissa Macias, 5 years.) See instructions COPD with asthma Pulmonary hypertension Macrocytic anemia Cardiac pacemaker in situ Chronic hypoxic respiratory failure Hypothyroid Decreased ambulation status BMI 35.0-35.9,adult Class 1 obesity due to excess calories in adult Former smoker Lissa Macias, 5 years. Contact prescribing physician if questions [...] Every day Oxygen - patient states his radiology transporter just increased this to 4LPM Contact prescribing physician if questions or concerns Unchanged potassium chloride (potassium chl (more content not included)... 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 Chronic kidney disease stage 3a is managed [...] 3352F Influ (more content not included)... Normal [facility] Comment on above: Result Comment: Elec tronically Signed By: Yesenia VENTURA, Pito Underwood.br\Date and Time Signed: 05/17/24 11:03 EDT No Panel Informationon 05-03 [facility] Type of biopsy: abernathy ential Informed [...] taken Amount of lidocaine used: 1.0 cc [facility] Type of biopsy: abernathy entiia Informed consent: discussed and consent obtained Informed [...] taken Amount of lidocaine used: 1.0 cc [employer] Type of biopsy: abernathy ential Informed [...] taken Amount of lidocaine used: 2.0 cc [facility] [employer] [facility] [employer] GLUCOSE, BLOOD (POC)on 04-29 Glucose [Mass/Vol] 98 mg/dL 74 - 99 mg/dL [facility] Comment on above: Location:[facility], [address] [place] [address] , [place], [place], [facility] The Accu-Chek Inform II glucose meter has [...] blood gas instrument) in the above situations. [facility] CBC W Auto Differential pane l (Bld)on 04-20-2024 Anisocytosis Ql (Bld) Present [facility] Basophils (Bld) [#/Vol] 0.00 10*3/uL [facility] Basophils/100 WBC (Bld) 0.0 % [facility] Differential cell count method Nom (Bld) Manual [facility] [facility] Eosinophils (Bld) [#/Vol] 0.00 10*3/uL [facility] Eosinophils/100 WBC (Bld) 0.0 % [facility] Erythrocyte distribution width (RBC) [Ratio] 15.2 % High 11.5 - 15.0 % [facility] Hematocrit (Bld) [Volume fraction] 37.6 % Low 39.0 - 51.0 % [facility] Hemoglobin (Bld) [Mass/Vol] 12.3 g/dL Low 13.0 - 17.0 g/dL [facility] Interpretation and review of laboratory results Abnormal [facility] Lymphocytes (Bld) [#/Vol] 0.75 10*3/uL Low [facility] Lymphocytes/100 WBC (Bld) 17.0 % [facility] MCH (RBC) [Entitic mass] 34.2 pg High 26.0 - 34.0 pg [facility] MCHC (RBC) [Mass/Vol] 32.7 g/dL 30.5 - 36.0 g/dL [facility] MCV (RBC) [Entitic vol] 104.4 fL High 80.0 - 100.0 fL [facility] [place] % 1.0 % [facility] Monocytes (Bld) [#/Vol] 1.73 10*3/uL High NINF [facility] Monocytes/100 WBC (Bld) 39.0 % [facility] Neutrophils (Bld) [#/Vol] 1.91 10*3/uL [facility] Neutrophils/100 WBC (Bld) 43.0 % [facility] Nucleated RBC (Bld) [#/Vol] NINF [facility] Nucleated RBC/100 WBC (Bld) [Ratio] 0.0 % /100 WBC [facility] Ovalocytes LM Ql (Bld) Few [facility] Platelet mean volume (Bld) [Entitic vol] 10.0 fL 9.0 - 12.7 fL [facility] Platelets (Bld) [#/Vol] 136 10*3/uL Low [facility] Platelets Estimate (Bld) [#/Vol] Adequate [facility] Polychromasia LM Ql (Bld) Slight [facility] RBC (Bld) [#/Vol] 3.60 10*6/uL Low 4.20 - 6.0 0 m/uL [facility] Red Cell Morph Reviewed: see result s of individual morphologies [facility] WBC (Bld) [#/Vol] 4.44 10*3/uL [facility] WBC Left Shift Ql (Bld) Present [facility] ANC=1.55 The followi ng results were reported as preliminary values due to instrument flagging. Interpret with caution. Final results may vary.Results requested and read back by: [email or web address] @1418 9'3'24 GAY This is an appended report. These results have been appended to a previously verified report. [facility] Basic metabolic 2000 panelon 04-19-2024 Anion gap [Moles/Vol] 15 mmol/L 8 - 15 mmol/L [facility] Calcium [Mass/Vol] 9.2 mg/dL 8.5 - 10. 2 mg/dL [facility] Comment on above: Corrected result: Pr eviously reported as 9.6 mg/dL on 04/19/2024 at 2:41 PM EDT. Chloride [Moles/Vol] 105 mmol/L 98 - 10 7 mmol/L [facility] CO2 [Moles/Vol] 25 mmol/L 22 - 30 mmol/L [facility] Comment on above: Corrected result: Pr eviously reported as 27 mmol/L on 04/19/2024 at 2:41 PM EDT. Creatinine [Mass/Vol] 1.37 mg/dL High 0.73 - 1.22 mg/dL [facility] Comment on above: Corrected result: Pr eviously reported as 1.36 mg/dL on 04/19/2024 at 2:41 PM EDT. GFR/1.73 sq M.predicted among non-blacks MDRD (S/P/Bld) [Vol rate/Area] 53 mL/min/{1.73_m2} Low - PINF [facility] Comment on above: Estimated Glomerular Filtration Rate [...] 120 mg/dL High 74 - 99 mg/dL [facility] Comment on above: The [place] [employer] (ADA) provides guidance for [...] Standards of Medical Care in Diabetes 2016, [place] [employer]. Diabetes Care. 2016.39(Suppl 1). Corrected result: Previously reported as 126 mg/dL on 04/19/2024 at 2:41 PM EDT. Interpretation and review of laboratory results Abnormal [facility] Potassium [Moles/Vol] 4.4 mmol/L 3.7 - 5.1 mmol/L [facility] Sodium [Moles/Vol] 145 mmol/L High 136 - 144 mmol/L [facility] Urea nitrogen [Mass/Vol] 20 mg/dL 9 - 24 mg/dL [facility] Comment on above: Corrected result: Pr eviously reported as 21 mg/dL on 04/19/2024 at 2:41 PM EDT. [facility] CHEMISTRYOrdered By: SYSTEM SYSTEM on 10-19-2023 Albumin [...] 7.5 E9/L [facility] HEMATOLOGYOrdered By: Ning Aiden on 01-26-2023 Erythrocyte distribution width (RBC) [Ratio] 15.8 % High 10.9 - 14.2 % [facility] Hematocrit (Bld) [Volume fraction] 33.9 % Low 37.7 - 49.0 % [facility] Hemoglobin (Bld) [Mass/Vol] 11.1 g/dL Low 13.5 - 17.5 gm/dL [facility] MCH (RBC) [Entitic mass] 33.2 pg [...] by ts . PROF CHEM 8 ([facility] MET)on Anion gap [Moles/Vol] 14.0 mmol/L Normal [facility] Comment on above: Performed By: #### B MP ####[facility] [id number] [place] [address]Dr. Trevor Nichols Calcium [Mass/Vol] 8.8 mg/dL Normal 8.5-10.1 [facility] Comment on above: Performed By: #### B MP ####[facility] [id number] [address] [id number]. Trevor Nichols Chloride [Moles/Vol] 104 mmol/L Normal 98-107 [facility] Comment on above: Performed By: #### B MP ####[facility] [id number] [address]Dr. Trevor Nichols CO2 [Moles/Vol] 26.0 mmol/L Normal 21.0-32.0 [facility] Comment on above: Performed By: #### B MP ####[facility] [id number] [address]Dr. Trevor Nichols Creatinine [Mass/Vol] 1.49 mg/dL Critically high 0.70-1.30 [facility] Comment on above: Performed By: #### B MP ####[facility] [id number] [place], [place] [address]Dr. Trevor Nichols EGFR-AF GUAMANIAN 56 mL/min/1.73m2 Critically low >=60 [facility] Comment on above: Performed By: #### B MP ####[facility] [id number] [place], [place] [address]Dr. Trevor Nichols EGFR-NON AF GUAMANIAN 46 mL/min/1.73m2 Critically low >=60 [facility] Comment on above: Performed By: #### B MP ####[facility] [id number] [place], [place] [address]Dr. Trevor Nichols Glucose [Mass/Vol] 115 mg/dL Critically high 74-106 [facility] Comment on above: Performed By: #### B MP ####[facility] [id number] [place], [place] [address]Dr. Trevor Nichols Potassium [Moles/Vol] 4.0 mmol/L Normal 3.5-5.1 [facility] Comment on above: Performed By: #### B MP ####[facility] [id number] [place], [place] [address]Dr. Trevor Nichols Sodium [Moles/Vol] 140 mmol/L Normal 136-145 [facility] Comment on above: Performed By: #### B MP ####[facility] [id number] [place], [place] [address]Dr. Trevor Nichols Urea nitrogen [Mass/Vol] 22.0 mg/dL Critically high 7.0-18.0 [facility] Comment on above: Performed By: #### B MP ####[facility] [id number] [place], [place] [address]Ps. Trevor Nichols Urea nitrogen/Creatinine [Mass ratio] 14.8 mg/mg Normal [facility] Comment on above: Performed By: #### B MP ####[facility] [id number] [place], [place] [address]Kh. Trevor Nichols NM STRESS/REST MULTIon 04-16 NM STRESS/REST MULTI Patient: JANNETH JUAREZ Exam Date: 04/16/2022 : 1945 Gender:M Ordering : DR DANIELLA EASTON M.D. Admission #: [id number] Family : DR WILL SHERWOOD . Order #: [id number] CLICK HERE TO VIEW EXAM RADIOLOGY REPORT [...] Beatty MD on 04/16/2022 at 10:23 Normal [facility] ECHOCARDIO M/2D COMPLETEon 0 02-19-2022 ECHOCARDIO M/2D COMPLETE Patient: CHIKI JUAREZ Exam Date: 02/19/2022 : 1945 Gender:M Ordering : CRISTÓBAL K. JENI Admission #: [id number] Family : DR WILL SHERWOOD . Order #: [id number] CLICK HERE TO VIEW EXAM ECHOCARDIOGRAM REPORT [...] Easton M.D. on 02/19/2022 at 19:53 Normal [facility] LIPID PROFILEon 02-10-2022 CHOL-HDL RATIO NORM SEE BELOW Normal [facility] Comment on above: Result Comment: 3.3 - 4.4 LOW RISK 4.4 - 7.1 AVERAGE RISK 7.1 - 11.0 MODERATE RISK >11.0 HIGH RISK Performed By: #### L IPID #### [facility] [address] [address] [address] Trevor Nichols Cholesterol [Mass/Vol] 171 mg/dL Normal <=200 [facility] Comment on above: Performed By: #### L IPID #### [facility] [address] [address] [address] Trevor Nichols Cholesterol in HDL [Mass/Vol] 40 mg/dL Normal 40-60 [facility] Comment on above: Performed By: #### L IPID #### [facility] [address] [address] [address] Trevor Nichols Cholesterol in LDL [Mass/Vol] 114.0 mg/dL Normal [facility] Comment on above: Performed By: #### L IPID #### [facility] [address] [address] [address] Trevor Nichols Cholesterol.total/Ch olesterol in HDL [Mass ratio] 4.3 {ratio} Normal [facility] Comment on above: Performed By: #### L IPID #### [facility] [address] [address] [address] Trevor Nichols HDL NORMAL > or = 60 mg/dl - LO W CARDIOVASCULAR RISK <40 mg/dl - HIGH CARDIOVASCULAR RISK Normal [facility] Comment on above: Performed By: #### L IPID #### [facility] [address] [place] [address] Dr. Trevor Nichols LDL CALC NORMAL SEE BELOW Normal [facility] Comment on above: Result Comment: <100 mg/dl OPTIMAL 100 - 129 mg/dl NEAR OR ABOVE OPTIMAL 130 - 159 mg/dl BORDERLINE HIGH 160 - 189 mg/dl HIGH >190 mg/dl VERY HIGH Performed By: #### L IPID #### [facility] [address] [place] [address] Dr. Trevor Nichols Triglyceride [Mass/Vol] 85 mg/dL Normal <=150 [facility] Comment on above: Performed By: #### L IPID #### [facility] [address] [place] [address] Dr. Trevor Nichols VLDL CALC 17.0 mg/dL Normal [facility] Comment on above: Performed By: #### L IPID #### [facility] [address] [place] [address] Dr. Trevor Nichols BNPon 02-05-2022 Natriuretic peptide B (Bld) [Mass/Vol] 231.0 pg/mL Normal <=900.0 [facility] Comment on above: Performed By: #### H STROPN, BNP, BMP #### [facility] [address] [place] [address] Dr. Trevor Nichols CBC W MANUAL DIFFon 02-06-20 22 ANISOCYTOSIS 1+ Normal [facility] Comment on above: Performed By: #### C BCMAN #### [facility] [address] [place] [address] Dr. Trevor Nichols ATYPICAL LYMPH # Normal [facility] Comment on above: Performed By: #### C BCMAN #### [facility] [address] [place] [address] Dr. Trevor Nichols ATYPICAL LYMPH % Normal [facility] Comment on above: Performed By: #### C FAVIOMAN #### [facility] [address] [place] [address] Dr. Trevor Nichols BAND # 0.3 103/ul Normal 0.0-0.3 [facility] Comment on above: Performed By: #### C BCNADIA #### [facility] [address] [place] [address] Dr. Trevor Nichols BAND % 6 % Critically high 0-5 [facility] Comment on above: Performed By: #### C BCMAN #### [facility] [address] [place] [address] Dr. Trevor Nichols BASOM # 0.00 103/ul Normal 0.00-0.10 [facility] Comment on above: Performed By: #### C BCMAN #### [facility] [address] [place] [address] Dr. Trevor Nichols BASOM % 0.0 % Critically low 0.2-2.0 [facility] Comment on above: Performed By: #### C BCNADIA #### [facility] [address] [place] [address] Dr. Trevor Nichols BLAST # Normal [facility] Comment on above: Performed By: #### C JOBY #### [facility] [address] [place] [address] Dr. Trevor Nichols BLAST % Normal [facility] Comment on above: Performed By: #### C JOBY #### [facility] [address] [place] [address] Dr. Trevor Nichols CORRECTED WBC Normal 4.0-11.0 [facility] Comment on above: Performed By: #### C BCNADIA #### [facility] [address] [place] [address] Dr. Trevor Nichols EOS # 0.04 103/ul Normal 0.00-0.70 [facility] Comment on above: Performed By: #### C BCNADIA #### [facility] [address] [place] [address] Dr. Trevor Nichols EOS% 1.0 % Normal 0.9-7.0 [facility] Comment on above: Performed By: #### C BCNADIA #### [facility] [address] [place] [address] Dr. Trevor Nichols HCT 36.4 % Critically low 42.0-54.0 [facility] Comment on above: Performed By: #### C JOBY #### [facility] [address] [place] [address] Dr. Trevor Nichols HGB 11.4 g/dl Critically low 14.0-18.0 [facility] Comment on above: Performed By: #### C JOBY #### [facility] [address] [place] [address] Dr. Trevor Nichols HYPOCHROMASIA SLIGHT Normal [facility] Comment on above: Performed By: #### C JOBY #### [facility] [address] [place] [address] Dr. Trevor Nichols LYMPHM # 1.19 103/ul Critically low 1.20-3.80 [facility] Comment on above: Performed By: #### C JOBY #### [facility] [address] [place] [address] Dr. Trevor Nichols LYMPHM% 27.0 % Normal 20.5-60.0 [facility] Comment on above: Performed By: #### C JOBY #### [facility] [address] [place] [address] Dr. Trevor Nichols MCH 32.5 pg Normal 25.9-34.0 [facility] Comment on above: Performed By: #### C JOBY #### [facility] [address] [place] [address] Dr. Trevor Nichols MCHC 31.3 g/dl Normal 29.9-35.2 [facility] Comment on above: Performed By: #### C JOBY #### [facility] [address] [place] [address] Dr. Trevor Nichols MCV 103.7 fL Critically high 80.0-94.0 [facility] Comment on above: Performed By: #### C JOBY #### [facility] [address] [place] [address] Dr. Trevor Nichols METAMYELOCYTE # Normal [facility] Comment on above: Performed By: #### C JOBY #### [facility] [address] [place] [address] Dr. Trevor Nichols METAMYELOCYTE % Normal [facility] Comment on above: Performed By: #### C JOBY #### [facility] [address] [address] [address] Trevor Nichols MONOM# 1.28 103/ul Critically high 0.30-0.80 [facility] Comment on above: Performed By: #### C JOBY #### [facility] [address] [address] [address] Trevor Nichols MONOM% 29.0 % Critically high 1.7-12.0 [facility] Comment on above: Performed By: #### C JOBY #### [facility] [address] [address] [address] Trevor Nichols MPV 10.5 fL Normal 9.5-13.5 [facility] Comment on above: Performed By: #### C JOBY #### [facility] [address] [place] [address] Dr. Trevor Nichols MYELOCYTE # Normal [facility] Comment on above: Performed By: #### C JOBY #### [facility] [address] [place] [address] Dr. Trevor Nichols MYELOCYTE % Normal [facility] Comment on above: Performed By: #### C JOBY #### [facility] [address] [address] [address] Trevor Nichols NRBC Normal [facility] Comment on above: Performed By: #### C JOBY #### [facility] [address] [place] [address] Dr. Trevor Nichols PLT 161 103/ul Normal 150-450 [facility] Comment on above: Performed By: #### C JOBY #### [facility] [address] [place] [address] Dr. Trevor Nichols RBC 3.51 106/ul Critically low 4.70-6.10 [facility] Comment on above: Performed By: #### C JOBY #### [facility] [address] [place] [address] Dr. Trevor Nichols RDW 16.0 % Critically high 11.0-15.0 [facility] Comment on above: Performed By: #### C JOBY #### [facility] [address] [address] [address] Trevor Nichols SEG # 1.63 103/ul Normal 1.40-6.50 [facility] Comment on above: Performed By: #### C JOBY #### [facility] [address] [address] [address] Trevor Nichols SEG % 37.0 % Critically low 43.0-75.0 [facility] Comment on above: Performed By: #### C JOBY #### [facility] [address] [address] [address] Trevor Nichols WBC 4.4 103/ul Normal 4.0-11.0 [facility] Comment on above: Performed By: #### C JOBY #### [facility] [address] [place] [address] Dr. Trevor Nichols PROF 14(COMP METB)on 022 Albumin [Mass/Vol] 3.4 g/dL Normal 3.4-5.0 [facility] Comment on above: Performed By: #### H STROPN, BNP, BMP #### [facility] [address] [place] [address] Dr. Trevor Nichols Albumin/Globulin [Mass ratio] 0.9 {ratio} Normal [facility] Comment on above: Performed By: #### H STROPN, BNP, BMP #### [facility] [address] [place] [address] Dr. Trevor Nichols ALP [Catalytic activity/Vol] 99 U/L Normal 46-116 [facility] Comment on above: Performed By: #### H STROPN, BNP, BMP #### [facility] [address] [place] [address] Dr. Trevor Nichols ALT [Catalytic activity/Vol] 18 U/L Normal 16-63 [facility] Comment on above: Performed By: #### H STROPN, BNP, BMP #### [facility] [address] [place] [address] Dr. Trevor Nichols Anion gap [Moles/Vol] 13.5 mmol/L Normal [facility] Comment on above: Performed By: #### H STROPN, BNP, BMP #### [facility] [address] [address] [address] Trevor Nichols AST [Catalytic activity/Vol] 10 U/L Critically low 15-37 [facility] Comment on above: Performed By: #### H STROPN, BNP, BMP #### [facility] [address] [place] [address] Dr. Trevor Nichols Bilirubin [Mass/Vol] 0.5 mg/dL Normal 0.2-1.0 [facility] Comment on above: Performed By: #### H STROPN, BNP, BMP #### [facility] [address] [place] [address] Dr. Trevor Nichols Calcium [Mass/Vol] 8.8 mg/dL Normal 8.5-10.1 [facility] Comment on above: Performed By: #### H STROPN, BNP, BMP #### [facility] [address] [place] [address] Dr. Trevor Nichols Chloride [Moles/Vol] 106 mmol/L Normal 98-107 [facility] Comment on above: Performed By: #### H STROPN, BNP, BMP #### [facility] [address] [place] [address] Dr. Trevor Nichols CO2 [Moles/Vol] 24.3 mmol/L Normal 21.0-32.0 [facility] Comment on above: Performed By: #### H STROPN, BNP, BMP #### [facility] [address] [place] [address] Dr. Trevor Nichols Creatinine [Mass/Vol] 1.35 mg/dL Critically high 0.70-1.30 [facility] Comment on above: Performed By: #### H STROPN, BNP, BMP #### [facility] [address] [place] [address] Dr. Trevor Nichols EGFR-AF GUAMANIAN >60 Normal >=60 [facility] Comment on above: Performed By: #### H STROPN, BNP, BMP #### [facility] [address] [place] [address] Dr. Trevor Nichols EGFR-NON AF GUAMANIAN 52 mL/min/1.73m2 Critically low >=60 [facility] Comment on above: Performed By: #### H STROPN, BNP, BMP #### [facility] [address] [address] [address] Trevor Nichols Globulin (S) [Mass/Vol] 3.8 g/dL Normal [facility] Comment on above: Performed By: #### H STROPN, BNP, BMP #### [facility] [address] [address] [address] Trevor Nichols Glucose [Mass/Vol] 103 mg/dL Normal 74-106 [facility] Comment on above: Performed By: #### H STROPN, BNP, BMP #### [facility] [address] [place] [address] Dr. Trevor Nichols Potassium [Moles/Vol] 3.8 mmol/L Normal 3.5-5.1 [facility] Comment on above: Performed By: #### H STROPN, BNP, BMP #### [facility] [address] [place] [address] Dr. Trevor Nichols Protein [Mass/Vol] 7.2 g/dL Normal 6.4-8.2 [facility] Comment on above: Performed By: #### H STROPN, BNP, BMP #### [facility] [address] [place] [address] Dr. Trevor Nichols Sodium [Moles/Vol] 140 mmol/L Normal 136-145 [facility] Comment on above: Performed By: #### H STROPN, BNP, BMP #### [facility] [address] [place] [address] Dr. Trevor Nichols Urea nitrogen [Mass/Vol] 22.0 mg/dL Critically high 7.0-18.0 [facility] Comment on above: Performed By: #### H STROPN, BNP, BMP #### [facility] [address] [address] [address] Trevor Nichols Urea nitrogen/Creatinine [Mass ratio] 16.3 mg/mg Normal [facility] Comment on above: Performed By: #### H STROPN, BNP, BMP #### [facility] [address] [place], [place] [address] Dr. Trevor Nichols TSHon 02-05-2022 TSH 3.360 uIU/mL Normal 0.358-3.740 [facility] Comment on above: Performed By: #### H STROPN, BNP, BMP #### [facility] [address] [place], [place] [address] Dr. Trevor Nichols XR CHEST 2 Von [...] by: ALLAN FLOREZ Date: 2022-02-05 17:03 Normal [facility] XR BONE SURVEYon 09-25-2021 XR [...] SHAY BERNSTEIN Date: 2021-09-25 07:30 Normal [facility] PROTEIN ELECTROPHERESISon Albumin [Mass/Vol] 3.2 g/dL Normal 2.9-4.4 [facility] Comment on above: Performed By: #### P RTELEC ####[facility] J[address]ls[address] [place], [place] [address]Dr. Trevor Nichols Albumin/Globulin [Mass ratio] 1.1 {ratio} Normal 0.7-1.7 [facility] Comment on above: Performed By: #### P RTELEC ####[facility] [address] [place], [place] [address]Dr. Trevor Nichols Yszsh-9-Argdtfnt 0.3 g/dL Normal 0.0-0.4 [facility] Comment on above: Performed By: #### P RTELEC ####[facility] Ek[address]imiez[address] [place], [place] [address]Dr. Vivifrancie Nichols Qnvzi-2-Owuqyslj 0.8 g/dL Normal 0.4-1.0 [facility] Comment on above: Performed By: #### P RTELEC ####[facility] Zqiys[address]ikb[address] [place], [place] [address]Dr. Trevor Nichols Beta Globulin 1.0 g/dL Normal 0.7-1.3 The [facility] Comment on above: Performed By: #### P RTELEC ####[facility] Q[address] [place], [place] [address]Dr. Trevor Nichols Gamma Globulin 0.8 g/dL Normal 0.4-1.8 The [facility] Comment on above: Performed By: #### P RTELEC ####[facility] [address] [place] [address]Dr. Trevor Nichols Globulin (S) [Mass/Vol] 2.9 g/dL Normal 2.2-3.9 The [facility] Comment on above: Performed By: #### P RTELEC ####[facility] [address] [place] [address]Dr. Trevor Nichols M-Jorge 0.1 g/dL Critically high Not Observed [facility] Comment on above: Performed By: #### P RTELEC ####[facility] [address] [place], [place] [address]Dr. Trevor Nichols PDF . Normal [facility] Comment on above: Performed By: #### P RTELEC ####[facility] [address] [place], [place] [address]Dr. Trevor Nichols Please note: Comment Normal [facility] Comment on above: Result Comment: Prot ein electrophoresis scan will follow via computer, mail, or leather craftsman delivery. Performed By: #### P RTELEC ####[facility] [address] [place], [place] [address]Dr. Trevor Nichols Protein [Mass/Vol] 6.1 g/dL Normal 6.0-8.5 [facility] Comment on above: Performed By: #### P RTELEC ####[facility] Ixs[address]acoui[address] [place], [place] [address]Dr. Trevor Nichols PROF CHEM 8 (BAS METB)on Anion gap [Moles/Vol] 16.3 mmol/L Normal [facility] Comment on above: Performed By: #### H STROPN, BNP, BMP #### [facility] [address] [place] [address] Dr. Trevor Nichols Calcium [Mass/Vol] 9.1 mg/dL Normal 8.4-10.2 [facility] Comment on above: Performed By: #### H STROPN, BNP, BMP #### [facility] [address] [place] [address] [address] Trevor Nichols Chloride [Moles/Vol] 104 mmol/L Normal 98-107 [facility] Comment on above: Performed By: #### H STROPN, BNP, BMP #### [facility] [address] [place] [address] [address] Trevor Nichols CO2 [Moles/Vol] 23.3 mmol/L Normal 22.0-30.0 [facility] Comment on above: Performed By: #### H STROPN, BNP, BMP #### [facility] [address] [place] [address] [address] Trevor Nichols Creatinine [Mass/Vol] 1.28 mg/dL Critically high 0.66-1.25 [facility] Comment on above: Performed By: #### H STROPN, BNP, BMP #### [facility] [address] [place] [address] Dr. Trevor Nichols EGFR-AF GUAMANIAN >60 Normal >=60 [facility] Comment on above: Performed By: #### H STROPN, BNP, BMP #### [facility] [address] [place] [address] Dr. Trevor Nichols EGFR-NON AF GUAMANIAN 55 mL/min/1.73m2 Critically low >=60 [facility] Comment on above: Performed By: #### H STROPN, BNP, BMP #### [facility] [address] [place] [address] Dr. Trevor Nichols Glucose [Mass/Vol] 98 mg/dL Normal 74-106 [facility] Comment on above: Performed By: #### H STROPN, BNP, BMP #### [facility] [address] [place] [address] [address] Trevor Nichols Potassium [Moles/Vol] 3.6 mmol/L Normal 3.4-5.0 [facility] Comment on above: Performed By: #### H STROPN, BNP, BMP #### [facility] [address] [place] [address] Dr. Tervor Nichols Sodium [Moles/Vol] 140 mmol/L Normal 137-145 [facility] Comment on above: Performed By: #### H STROPN, BNP, BMP #### [facility] [address] [place], [place] [address] Dr. Trevor Nichols Urea nitrogen [Mass/Vol] 25.0 mg/dL Critically high 9.0-20.0 [facility] Comment on above: Performed By: #### H STROPN, BNP, BMP #### [facility] [address] [place] [id number] [address] Trevor Nichols Urea nitrogen/Creatinine [Mass ratio] 19.5 mg/mg Normal [facility] Comment on above: Performed By: #### H STROPN, BNP, BMP #### [facility] [address] [place] [id number] [address] Trevor Nichols XR MODIFIED BARIUM SWALLOWon [...] by: SHAY BERNSTEIN Date: 2021-09-05 10:40 Normal [facility] CULTURE SPUTUMon 08-01-2021 CULTURE SPUTUM [...] Trimethoprim/Sulfamethoxaz ole <=20 S F Normal [facility] Comment on above: Performed By: #### H STROPN, BNP, BMP #### [facility] [address] [place] [address] [address] Trevor Nichols SPUTUM GRAM STAINon 07-30-20 COMMENTS Normal [facility] Comment on above: Performed By: #### S PUTGS ####[facility] [address] [place] [address]Dr. Trevor Nichols DIPHTHEROIDS Normal [facility] Comment on above: Performed By: #### S PUTGS ####[facility] [address] [place] [address]Dr. Trevor Nichols EPITHELIALS >25 Normal [facility] Comment on above: Performed By: #### S PUTGS ####[facility] [address] [place] [address]Dr. Trevor Nichols FUNGAL ELEMENTS Normal [facility] Comment on above: Performed By: #### S PUTGS ####[facility] [address] [place] [address]Dr. Trevor Nichols GRAM NEG BACILLI RARE Normal [facility] Comment on above: Performed By: #### S PUTGS ####[facility] [address] [place] [address]Dr. Trevor Nichols GRAM NEG DIPPLOCOCCI Normal [facility] Comment on above: Performed By: #### S PUTGS ####[facility] [address] [place] [address]Dr. Trevor Nichols GRAM POS BACILLI MANY Normal [facility] Comment on above: Performed By: #### S PUTGS ####[facility] [address] [place], [place] [address]Dr. Trevor Nichols GRAM POSITIVE COCCI MANY Normal [facility] Comment on above: Performed By: #### S PUTGS ####[facility] [address] [place] [address]Dr. Trevor Nichols WBC (Bld) [#/Vol] 10*3/uL Normal [facility] Comment on above: Performed By: #### S PUTGS ####[facility] [address] [place], [place] [address]Sk. Trevor Nichols ECHOCARDIO M/2D COMPLETEon 1 09-24-2020 ECHOCARDIO M/2D COMPLETE Patient: CHIKI JUAREZ Exam Date: 07/24/2021 : 1945 Gender:M Ordering : [employer] Admission #: [id number] Family : DR WILL SHERWOOD . Order #: [id number] CLICK HERE TO VIEW EXAM ECHOCARDIOGRAM REPORT [...] M.D. on 07/24/2021 at 20:08 Normal [facility] CBC W MANUAL DIFFon 06-07- 21 ATYPICAL LYMPH # Normal [facility] Comment on above: Performed By: #### H STROPN, BNP, BMP #### [facility] [address] [place] [address] [address] Trevor Nichols ATYPICAL LYMPH % Normal [facility] Comment on above: Performed By: #### H STROPN, BNP, BMP #### [facility] [address] [place] [address] [address] Trevor Nichols BAND # 0.1 103/ul Normal 0.0-0.3 [facility] Comment on above: Performed By: #### H STROPN, BNP, BMP #### [facility] [address] [place] [address] Dr. Trevor Nichols BAND % 2 % Normal 0-5 [facility] Comment on above: Performed By: #### H STROPN, BNP, BMP #### [facility] [address] [place] [address] Dr. Trevor Nichols BASOM # 0.00 103/ul Normal 0.00-0.10 [facility] Comment on above: Performed By: #### H STROPN, BNP, BMP #### [facility] [address] [place] [address] Dr. Trevor Nichols BASOM % 0.0 % Critically low 0.2-2.0 [facility] Comment on above: Performed By: #### H STROPN, BNP, BMP #### [facility] [address] [place] [address] Dr. Trevor Nichols BLAST # Normal [facility] Comment on above: Performed By: #### H STROPN, BNP, BMP #### [facility] [address] [place] [address] Dr. Trevor Nichols BLAST % Normal [facility] Comment on above: Performed By: #### H STROPN, BNP, BMP #### [facility] [address] [place] [address] [address] Trevor Nichols CORRECTED WBC Normal 4.0-11.0 [facility] Comment on above: Performed By: #### H STROPN, BNP, BMP #### [facility] [address] [place] [address] [address] Trevor Nichols EOS # 0.06 103/ul Normal 0.00-0.70 [facility] Comment on above: Performed By: #### H STROPN, BNP, BMP #### [facility] [address] [place] [address] Dr. Trevor Nichols EOS% 1.0 % Normal 0.9-7.0 [facility] Comment on above: Performed By: #### H STROPN, BNP, BMP #### [facility] [address] [place] [address] Dr. Trevor Nichols HCT 31.6 % Critically low 42.0-54.0 [facility] Comment on above: Performed By: #### H STROPN, BNP, BMP #### [facility] [address] [place] [address] Dr. Trevor Nichols HGB 9.7 g/dl Critically low 14.0-18.0 [facility] Comment on above: Performed By: #### H STROPN, BNP, BMP #### [facility] [address] [place] [address] Dr. Trevor Nichols LYMPHM # 0.46 103/ul Critically low 1.20-3.80 [facility] Comment on above: Performed By: #### H STROPN, BNP, BMP #### [facility] [address] [place] [address] Dr. Trevor Nichols LYMPHM% 8.0 % Critically low 20.5-60.0 [facility] Comment on above: Performed By: #### H STROPN, BNP, BMP #### [facility] [address] [place] [address] Dr. Trevor Nichols MACROCYTOSIS 1+ Normal [facility] Comment on above: Performed By: #### H STROPN, BNP, BMP #### [facility] [address] [place] [address] [address] Trevor Nichols MCH 33.6 pg Normal 25.9-34.0 [facility] Comment on above: Performed By: #### H STROPN, BNP, BMP #### [facility] [address] [place] [address] [address] Trevor Nichols MCHC 30.7 g/dl Normal 29.9-35.2 [facility] Comment on above: Performed By: #### H STROPN, BNP, BMP #### [facility] [address] [place] [address] [address] Trevor Nichols MCV 109.3 fL Critically high 80.0-94.0 [facility] Comment on above: Performed By: #### H STROPN, BNP, BMP #### [facility] [address] [place] [address] [address] Trevor Nichols METAMYELOCYTE # 0.1 103/ul Normal [facility] Comment on above: Performed By: #### H STROPN, BNP, BMP #### [facility] [address] [place] [address] [address] Trevor Nichols METAMYELOCYTE % 2 % Normal [facility] Comment on above: Performed By: #### H STROPN, BNP, BMP #### [facility] [address] [place] [address] [address] Trevor Nichols MONOM# 2.22 103/ul Critically high 0.30-0.80 [facility] Comment on above: Performed By: #### H STROPN, BNP, BMP #### [facility] [address] [place] [address] [address] Trevor Nichols MONOM% 39.0 % Critically high 1.7-12.0 [facility] Comment on above: Performed By: #### H STROPN, BNP, BMP #### [facility] [address] [place] [address] [address] Trevor Nichols MPV 9.4 fL Critically low 9.5-13.5 [facility] Comment on above: Performed By: #### H STROPN, BNP, BMP #### [facility] [address] [place] [address] [address] Trevor Nichols MYELOCYTE # 0.3 103/ul Normal [facility] Comment on above: Performed By: #### H STROPN, BNP, BMP #### [facility] [address] [place] [address] [address] Trevor Nichols MYELOCYTE % 6 % Normal [facility] Comment on above: Performed By: #### H STROPN, BNP, BMP #### [facility] [address] [place] [address] [address] Trevor Nichols NRBC Normal [facility] Comment on above: Performed By: #### H STROPN, BNP, BMP #### [facility] [address] [place] [address] [address] Trevor Nichols PLT 202 103/ul Normal 150-450 [facility] Comment on above: Performed By: #### H STROPN, BNP, BMP #### [facility] [address] [place] [address] [address] Trevor Nichols RBC 2.89 106/ul Critically low 4.70-6.10 [facility] Comment on above: Performed By: #### H STROPN, BNP, BMP #### [facility] [address] [place] [address] [address] Trevor Nichols RDW 15.4 % Critically high 11.0-15.0 [facility] Comment on above: Performed By: #### H STROPN, BNP, BMP #### [facility] [address] [place] [address] [address] Trevor Nichols SEG # 2.39 103/ul Normal 1.40-6.50 [facility] Comment on above: Performed By: #### H STROPN, BNP, BMP #### [facility] [address] [place] [address] [address] Trevor Nichols SEG % 42.0 % Critically low 43.0-75.0 [facility] Comment on above: Performed By: #### H STROPN, BNP, BMP #### [facility] [address] [place] [address] [address] Trevor Nichols WBC 5.7 103/ul Normal 4.0-11.0 [facility] Comment on above: Performed By: #### H STROPN, BNP, BMP #### [facility] [address] [place] [address] [address] Trevor Nichols PROF CHEM 8 (BAS METB)on Anion gap [Moles/Vol] 13.1 mmol/L Normal [facility] Comment on above: Performed By: #### B MP ####[facility] [address] [place] [address]DrJeffery Nichols Calcium [Mass/Vol] 8.8 mg/dL Normal 8.4-10.2 [facility] Comment on above: Performed By: #### B MP ####[facility] [address] [place] [address]DrJeffery Nichols Chloride [Moles/Vol] 104 mmol/L Normal 98-107 [facility] Comment on above: Performed By: #### B MP ####[facility] [address] [place] [address]Dr. Trevor Nichols CO2 [Moles/Vol] 24.1 mmol/L Normal 22.0-30.0 [facility] Comment on above: Performed By: #### B MP ####[facility] [address] [place] [address]DrJeffery Nichols Creatinine [Mass/Vol] 1.26 mg/dL Critically high 0.66-1.25 [facility] Comment on above: Performed By: #### B MP ####[facility] [address] [place] [address]DrJeffery Nichols EGFR-AF GUAMANIAN >60 Normal >=60 [facility] Comment on above: Performed By: #### B MP ####[facility] [address] [place] [address]DrJeffery Nichols EGFR-NON AF GUAMANIAN 56 mL/min/1.73m2 Critically low >=60 [facility] Comment on above: Performed By: #### B MP ####[facility] [address] [place] [id number]. Trevor Nichols Glucose [Mass/Vol] 98 mg/dL Normal 74-106 [facility] Comment on above: Performed By: #### B MP ####[facility] [address] [place] [address]Dr. Trevor Nichols Potassium [Moles/Vol] 4.2 mmol/L Normal 3.4-5.0 [facility] Comment on above: Performed By: #### B MP ####[facility] [address] [place] [address]Dr. Trevor Nichols Sodium [Moles/Vol] 137 mmol/L Normal 137-145 [facility] Comment on above: Performed By: #### B MP ####[facility] [address] [place] [address]Dr. Trevor Simone Urea nitrogen [Mass/Vol] 20.0 mg/dL Normal 9.0-20.0 [facility] Comment on above: Performed By: #### B MP ####[facility] [address] [place], [place] [address]Dr. Trevor Nichols Urea nitrogen/Creatinine [Mass ratio] 15.9 mg/mg Normal [facility] Comment on above: Performed By: #### B MP ####[facility] [address] [place] [address]Dr. Trevor Simone CBC AUTO DIFFon 05-16-2021 BASO # 0.0 103/ul Normal 0.0-0.1 [facility] Comment on above: Performed By: #### C BC ####[facility] [address] [place] [address]Dr. Trevor Simone Basophils/100 WBC (Bld) 0.2 % Normal 0.2-2.0 [facility] Comment on above: Performed By: #### C BC ####[facility] [address] [place] [address]Dr. Trevor Nichols EO # 0.0 103/ul Normal 0.0-0.7 [facility] Comment on above: Performed By: #### C BC ####[facility] [address]we[address] [place] [address]Dr. Trevor Nichols Eosinophils/100 WBC (Bld) 0.0 % Critically low 0.9-7.0 [facility] Comment on above: Performed By: #### C BC ####[facility] [address] [place], [place] [address]Dr. Trevor Nichols Erythrocyte distribution width (RBC) [Ratio] 15.1 % Critically high 11.0-15.0 [facility] Comment on above: Performed By: #### C BC ####[facility] [address] [place], [place] [address]Dr. Trevor Nichols Hematocrit (Bld) [Volume fraction] 32.9 % Critically low 42.0-54.0 [facility] Comment on above: Performed By: #### C BC ####[facility] [address] [place], [place] [address]Dr. Trevor Nichols Hemoglobin (Bld) [Mass/Vol] 10.5 g/dL Critically low 14.0-18.0 [facility] Comment on above: Performed By: #### C BC ####[facility] [address]ym[address] [place], [place] [address]Dr. Trevor Nichols IG # 0.29 10e3/ul Critically high 0.00-0.03 [facility] Comment on above: Performed By: #### C BC ####[facility] [address]riesf[address] [place], [place] [address]Dr. Trevor Nichols IG % 6.5 % Critically high 0.0-0.5 [facility] Comment on above: Performed By: #### C BC ####[facility] [address] [place], [place] [address]Dr. Trevor Nichols LYMPH # 0.2 103/ul Critically low 1.2-3.8 [facility] Comment on above: Performed By: #### C BC ####[facility] [address] [place], [place] [address]Dr. Trevor Nichols Lymphocytes/100 WBC (Bld) 5.4 % Critically low 20.5-60.0 [facility] Comment on above: Performed By: #### C BC ####[facility] [address] [place] [address]Dr. Trevor Nichols MANUAL DIFF REQ NO Normal [facility] Comment on above: Performed By: #### C BC ####[facility] [address] [place] [id number]. Trevor Nichols MCH (RBC) [Entitic mass] 33.8 pg Normal 25.9-34.0 [facility] Comment on above: Performed By: #### C BC ####[facility] [address] [place] [address]Dr. Trevor Nichols MCHC (RBC) [Mass/Vol] 31.9 g/dL Normal 29.9-35.2 [facility] Comment on above: Performed By: #### C BC ####[facility] [address] [place], [place] [address]Dr. Trevor Nichols MCV (RBC) [Entitic vol] 105.8 fL Critically high 80.0-94.0 [facility] Comment on above: Performed By: #### C BC ####[facility] [address] [place], [place] [address]Dr. Trevor Nichols MONO # 0.3 103/ul Normal 0.3-0.8 [facility] Comment on above: Performed By: #### C BC ####[facility] [address] [place], [place] [address]Dr. Trevor Nichols Monocytes/100 WBC (Bld) 7.6 % Normal 1.7-12.0 [facility] Comment on above: Performed By: #### C BC ####[facility] [id number] [place], [place] [address]DrJeffery Nichols NEUT # 3.6 103/ul Normal 1.4-6.5 [facility] Comment on above: Performed By: #### C BC ####[facility] [id number] [place], [place] [address]Dr. Trevor Nichols Neutrophils/100 WBC (Bld) 80.3 % Critically high 43.0-75.0 [facility] Comment on above: Performed By: #### C BC ####[facility] [id number] [place], [place] [address]Nu. Trevor Nichols Platelet mean volume (Bld) [Entitic vol] 10.2 fL Normal 9.5-13.5 [facility] Comment on above: Performed By: #### C BC ####[facility] [id number] [place], [place] [address]MuJeffery Nichols PLT 192 103/ul Normal 150-450 [facility] Comment on above: Performed By: #### C BC ####[facility] [id number] [place], [place] [address]Dx. Trevor Nichols RBC 3.11 106/ul Critically low 4.70-6.10 [facility] Comment on above: Performed By: #### C BC ####[facility] [id number] [place], [place] [address]Gz. Trevor Nichols WBC 4.5 103/ul Normal 4.0-11.0 [facility] Comment on above: Performed By: #### C BC ####[facility] [id number] [place], [place] [address] STROKE HEAD WOon 05-16-20 [...] SHAY BERNSTEIN Date: 2021-05-16 14:45 Normal [facility] CTA NECK WO W CONon 05-16-20 21 [...] SHAY BERNSTEIN Date: 2021-05-16 16:53 Normal [facility] IRON AND TIBCon 05-16-2021 % SATURATION 16.2 % Normal [facility] Comment on above: Performed By: #### F ETIBC, B12FOL #### [facility] Laboratory [address] [place] [address] Dr. Trevor Nichols Iron [Mass/Vol] 32.0 ug/dL Critically low 49.0-181.0 [facility] Comment on above: Performed By: #### F ETIBC, B12FOL #### [facility] [address] [place] [address] Dr. Trevor Nichols TIBC DIRECT 198.0 ug/dL Critically low 261.0-497.0 [facility] Comment on above: Performed By: #### F ETIBC, B12FOL #### [facility] [address] [place] [address] Dr. Trevor Nichols PROF CHEM 8 (BAS METB)on Anion gap [Moles/Vol] 14.9 mmol/L Normal [facility] Comment on above: Performed By: #### B MP #### [facility] [address] [place] [address] Dr. Trevor Nichols Calcium [Mass/Vol] 9.2 mg/dL Normal 8.4-10.2 [facility] Comment on above: Performed By: #### B MP #### [facility] Laboratory [address] [place] [address] Dr. Trevor Nichols Chloride [Moles/Vol] 105 mmol/L Normal 98-107 [facility] Comment on above: Performed By: #### B MP #### [facility] [address] [place] [address] Dr. Trevor Nichols CO2 [Moles/Vol] 21.6 mmol/L Critically low 22.0-30.0 [facility] Comment on above: Performed By: #### B MP #### [facility] Laboratory [address] [place] [address] Dr. Trevor Nichols Creatinine [Mass/Vol] 1.36 mg/dL Critically high 0.66-1.25 [facility] Comment on above: Performed By: #### B MP #### [facility] [address] [place] [address] Dr. Trevor Nichols EGFR-AF GUAMANIAN >60 Normal >=60 [facility] Comment on above: Performed By: #### B MP #### [facility] [address] [address] [address] Trevor Nichols EGFR-NON AF GUAMANIAN 51 mL/min/1.73m2 Critically low >=60 [facility] Comment on above: Performed By: #### B MP #### [facility] [address] [address] [address] Trevor Nichols Glucose [Mass/Vol] 206 mg/dL Critically high 74-106 T [facility] Comment on above: Performed By: #### B MP #### [facility] [address] [address] [address] Trevor Nichols Potassium [Moles/Vol] 4.5 mmol/L Normal 3.4-5.0 [facility] Comment on above: Performed By: #### B MP #### [facility] [address] [address] [address] Trevor Nichols Sodium [Moles/Vol] 137 mmol/L Normal 137-145 [facility] Comment on above: Performed By: #### B MP #### [facility] [address] [address] [address] Trevor Nichols Urea nitrogen [Mass/Vol] 26.0 mg/dL Critically high 9.0-20.0 [facility] Comment on above: Performed By: #### B MP #### [facility] [address] [address] [address] Trevor Nichols Urea nitrogen/Creatinine [Mass ratio] 19.1 mg/mg Normal [facility] Comment on above: Performed By: #### B MP #### [facility] [address] [address] [address] Trevor Nichols VIT B12 AND FOLATEon 021 Cobalamin (Vitamin B12) [Mass/Vol] pg/mL Critically high 239.0-931.0 [facility] Comment on above: Performed By: #### F ETIBC, B12FOL #### [facility] [address] [address] [address] Trevor Nichols FOLATE 15.40 ng/mL Normal >=2.76 [facility] Comment on above: Performed By: #### F ETIBC, B12FOL #### [facility] [address] [address] [address] Trevor Nichols BNPon 05-15-2021 Natriuretic peptide B (Bld) [Mass/Vol] 379.0 pg/mL Normal <=900.0 [facility] Comment on above: Performed By: #### H STROPN, BNP, BMP #### [facility] [address] [place] [address] Dr. Trevor Nichols CBC W MANUAL DIFFon 05-15-20 21 ATYPICAL LYMPH # Normal [facility] Comment on above: Performed By: #### H STROPN, BNP, BMP #### [facility] [address] [place] [address] Dr. Trevor Nichols ATYPICAL LYMPH % Normal [facility] Comment on above: Performed By: #### H STROPN, BNP, BMP #### [facility] [address] [place] [address] Dr. Trevor Nichols BAND # 0.0 103/ul Normal 0.0-0.3 [facility] Comment on above: Performed By: #### H STROPN, BNP, BMP #### [facility] [address] [place] [address] Dr. Trevor Nichols BAND % 1 % Normal 0-5 [facility] Comment on above: Performed By: #### H STROPN, BNP, BMP #### [facility] [address] [place] [address] Dr. Trevor Nichols BASOM # 0.00 103/ul Normal 0.00-0.10 [facility] Comment on above: Performed By: #### H STROPN, BNP, BMP #### [facility] [address] [place] [address] Dr. Trevor Nichols BASOM % 0.0 % Critically low 0.2-2.0 [facility] Comment on above: Performed By: #### H STROPN, BNP, BMP #### [facility] [address] [place] [address] Dr. Trevor Nichols BLAST # Normal [facility] Comment on above: Performed By: #### H STROPN, BNP, BMP #### [facility] [address] [address] [address] Trevor Nichols BLAST % Normal [facility] Comment on above: Performed By: #### H STROPN, BNP, BMP #### [facility] [address] [address] [address] Trevor Nichols BRENDA CELLS SLIGHT Normal [facility] Comment on above: Performed By: #### H STROPN, BNP, BMP #### [facility] [address] [address] [address] Trevor Nichols CORRECTED WBC Normal 4.0-11.0 [facility] Comment on above: Performed By: #### H STROPN, BNP, BMP #### [facility] [address] [place] [address] Dr. Trevor Nichols EOS # 0.05 103/ul Normal 0.00-0.70 [facility] Comment on above: Performed By: #### H STROPN, BNP, BMP #### [facility] [address] [place] [address] Dr. Trevor Nichols EOS% 1.0 % Normal 0.9-7.0 [facility] Comment on above: Performed By: #### H STROPN, BNP, BMP #### [facility] [address] [place] [address] Dr. Trevor Nichols HCT 32.5 % Critically low 42.0-54.0 [facility] Comment on above: Performed By: #### H STROPN, BNP, BMP #### [facility] [address] [place] [address] Dr. Trevor Nichols HGB 10.5 g/dl Critically low 14.0-18.0 [facility] Comment on above: Performed By: #### H STROPN, BNP, BMP #### [facility] [address] [place] [address] Dr. Trevor Nichols HYPOCHROMASIA 2+ Normal [facility] Comment on above: Performed By: #### H STROPN, BNP, BMP #### [facility] [address] [place] [address] Dr. Trevor Nichols LYMPHM # 1.03 103/ul Critically low 1.20-3.80 [facility] Comment on above: Performed By: #### H STROPN, BNP, BMP #### [facility] [address] [address] [address] Trevor Nichols LYMPHM% 22.0 % Normal 20.5-60.0 [facility] Comment on above: Performed By: #### H STROPN, BNP, BMP #### [facility] [address] [address] [address] Trevor Nichols MACROCYTOSIS 2+ Normal [facility] Comment on above: Performed By: #### H STROPN, BNP, BMP #### [facility] [address] [address] [address] Trevor Nichols MCH 34.5 pg Critically high 25.9-34.0 [facility] Comment on above: Performed By: #### H STROPN, BNP, BMP #### [facility] [address] [address] [address] Trevor Nichols MCHC 32.3 g/dl Normal 29.9-35.2 [facility] Comment on above: Performed By: #### H STROPN, BNP, BMP #### [facility] [address] [place] [address] Dr. Trevor Nichols MCV 106.9 fL Critically high 80.0-94.0 [facility] Comment on above: Performed By: #### H STROPN, BNP, BMP #### [facility] [address] [address] [address] Trevor Nichols METAMYELOCYTE # Normal [facility] Comment on above: Performed By: #### H STROPN, BNP, BMP #### [facility] [address] [address] [address] Trevor Nichols METAMYELOCYTE % Normal [facility] Comment on above: Performed By: #### H STROPN, BNP, BMP #### [facility] [address] [address] [address] Trevor Nichols MONOM# 1.74 103/ul Critically high 0.30-0.80 [facility] Comment on above: Performed By: #### H STROPN, BNP, BMP #### [facility] [address] [address] [address] Trevor Nichols MONOM% 37.0 % Critically high 1.7-12.0 [facility] Comment on above: Performed By: #### H STROPN, BNP, BMP #### [facility] [address] [address] [address] Trevor Nichols MPV 10.8 fL Normal 9.5-13.5 [facility] Comment on above: Performed By: #### H STROPN, BNP, BMP #### [facility] [address] [place] [address] Dr. Trevor Nichols MYELOCYTE # Normal [facility] Comment on above: Performed By: #### H STROPN, BNP, BMP #### [facility] [address] [place] [address] Dr. Trevor Nichols MYELOCYTE % Normal [facility] Comment on above: Performed By: #### H STROPN, BNP, BMP #### [facility] [address] [place] [address] Dr. Trevor Nichols NRBC Normal [facility] Comment on above: Performed By: #### H STROPN, BNP, BMP #### [facility] [address] [place] [address] Dr. Trevor Nichols PLT 222 103/ul Normal 150-450 [facility] Comment on above: Performed By: #### H STROPN, BNP, BMP #### [facility] [address] [place] [address] Dr. Trevor Nichols POIKILOCYTOSIS 2+ Normal [facility] Comment on above: Performed By: #### H STROPN, BNP, BMP #### [facility] [address] [place] [address] Dr. Trevor Nichols RBC 3.04 106/ul Critically low 4.70-6.10 [facility] Comment on above: Performed By: #### H STROPN, BNP, BMP #### [facility] [address] [place] [address] Dr. Trevor Nichols RDW 15.6 % Critically high 11.0-15.0 [facility] Comment on above: Performed By: #### H STROPN, BNP, BMP #### [facility] [address] [place] [address] Dr. Trevor Nichols SEG # 1.83 103/ul Normal 1.40-6.50 [facility] Comment on above: Performed By: #### H STROPN, BNP, BMP #### [facility] [address] [place] [address] Dr. Trevor Nichols SEG % 39.0 % Critically low 43.0-75.0 [facility] Comment on above: Performed By: #### H STROPN, BNP, BMP #### [facility] [address] [place] [address] Dr. Trevor Nichols TARGET CELLS 1+ Normal [facility] Comment on above: Performed By: #### H STROPN, BNP, BMP #### [facility] [address] [place] [address] Dr. Trevor Nichols TEAR DROP CELLS SLIGHT Normal [facility] Comment on above: Performed By: #### H STROPN, BNP, BMP #### [facility] [address] [place] [address] Dr. Trevor Nichols WBC 4.7 103/ul Normal 4.0-11.0 [facility] Comment on above: Performed By: #### H STROPN, BNP, BMP #### [facility] [address] [place] [address] Dr. Trevor Nichols CTA CHEST WO W [...] RAY SAWANT Date: 2021-05-15 11:15 Normal [facility] CULTURE BLOODon 05-15-2021 Microscopic examination of blood, culture Culture Observations: No growth at 5 days. Normal [facility] Comment on above: Performed By: #### H STROPN, BNP, BMP #### [facility] [address] [address] [address] Trevor Nichols Covid-19 PCR (CVDTB)on 04-18 SARS-CoV-2 (COVID-19) RNA DEVIN+probe Ql (Unsp spec) Not detected Normal NOT DETECTED [facility] Comment on above: Result Comment: When diagnostic testing is negative, the possibility of a false negative should be considered in the context of a patient's recent exposures and the presence of clinical signs and symptoms consistent with SARS-CoV-2. This test is not yet approved or cleared by the [place] Food and Drug Administration (FDA). This test was developed by [facility], [place], [place]. The performance characteristics of this test were validated by The [facility]. The results are not intended to be used as the sole means for clinical diagnosis or patient management decisions. The [facility] is authorized under Clinical Laboratory Improvement Amendments (CLIA) to perform high- complexity testing. Performed By: #### H STROPN, BNP, BMP #### [facility] [address] [address] [address] Trevor Nichols FREE T3on 05-15-2021 FREE T3 1.66 pg/mlL Critically low 2.77-5.27 [facility] Comment on above: Performed By: #### T SH, FT3 ####[facility] [id number] [address]Dr. Trevor Nichols FREE T4on 05-15-2021 Free T4 [Mass/Vol] 1.06 ng/dL Normal 0.78-2.19 [facility] Comment on above: Performed By: #### F T4 ####[facility] [id number] [address]Dr. Trevor Nichols LACTATE/LACTIC ACIDon 2020 Lactate [Moles/Vol] 1.2 mmol/L Normal 0.7-2.0 [facility] Comment on above: Performed By: #### L ACT ####[facility] [id number] [address]Dr[address] Trevor Nichols Lactate [Moles/Vol] 1.5 mmol/L Normal 0.7-2.0 [facility] Comment on above: Performed By: #### L ACT ####[facility] [id number] [address]Dr. Trevor Nichols PROF CHEM 8 (BAS METB)on Anion gap [Moles/Vol] 12.5 mmol/L Normal [facility] Comment on above: Performed By: #### H STROPN, BNP, BMP #### [facility] [address] [address] [address] Trevor Nichols Calcium [Mass/Vol] 8.4 mg/dL Normal 8.4-10.2 [facility] Comment on above: Performed By: #### H STROPN, BNP, BMP #### [facility] [address] [address] [address] Trevor Nichols Chloride [Moles/Vol] 106 mmol/L Normal 98-107 [facility] Comment on above: Performed By: #### H STROPN, BNP, BMP #### [facility] [address] [address] [address] Trevor Nichols CO2 [Moles/Vol] 24.8 mmol/L Normal 22.0-30.0 [facility] Comment on above: Performed By: #### H STROPN, BNP, BMP #### [facility] [address] [place] [address] Dr. Trevor Nichols Creatinine [Mass/Vol] 1.37 mg/dL Critically high 0.66-1.25 [facility] Comment on above: Performed By: #### H STROPN, BNP, BMP #### [facility] [address] [place] [address] Dr. Trevor Nichols EGFR-AF GUAMANIAN >60 Normal >=60 [facility] Comment on above: Performed By: #### H STROPN, BNP, BMP #### [facility] [address] [place] [address] Dr. Trevor Nichols EGFR-NON AF GUAMANIAN 51 mL/min/1.73m2 Critically low >=60 [facility] Comment on above: Performed By: #### H STROPN, BNP, BMP #### [facility] [address] [place] [address] Dr. Trevor Nichols Glucose [Mass/Vol] 114 mg/dL Critically high 74-106 T [facility] Comment on above: Performed By: #### H STROPN, BNP, BMP #### [facility] [address] [place] [address] Dr. Trevor Nichols Potassium [Moles/Vol] 4.4 mmol/L Normal 3.4-5.0 [facility] Comment on above: Performed By: #### H STROPN, BNP, BMP #### [facility] [address] [place] [address] Dr. Trevor Nichols Sodium [Moles/Vol] 139 mmol/L Normal 137-145 [facility] Comment on above: Performed By: #### H STROPN, BNP, BMP #### [facility] [address] [place] [address] Dr. Trevor Nichols Urea nitrogen [Mass/Vol] 20.0 mg/dL Normal 9.0-20.0 [facility] Comment on above: Performed By: #### H STROPN, BNP, BMP #### [facility] [address] [address] [address] Trevor Nichols Urea nitrogen/Creatinine [Mass ratio] 14.6 mg/mg Normal [facility] Comment on above: Performed By: #### H CHASITY, BNP, BMP #### [facility] [address] [address] [address] Trevor Nichols TROPONIN, HIGH SENSITIVITYon 05-15-2021 HSTROP 7.1 pg/mL Normal 4.0-42.2 [facility] Comment on above: Result Comment: CUT- OFF POINTS HAVE BEEN ESTABLISHED BASED ON THE FOURTH UNIVERSAL DEFINITIONS OF MYOCARDIAL INFARCTION. THE UPPER REFERENCE LIMIT (URL) OF TROPONIN, DEFINED THE 99TH PERCENTILE OF cTnI DISTRIBUTION IN A REFERENCE POPULATION, HAS BEEN CONFIRMED THE DECISION THRESHOLD FOR [place] DIAGNOSIS. Performed By: #### H CHASITY, BNP, BMP #### [facility] [address] [place] [address] Dr. Trevor Nichols TSHon 05-15-2021 TSH 1.972 uIU/mL Normal 0.470-4.680 [facility] Comment on above: Performed By: #### T SH, FT3 ####[facility] [id number] [address]Dr. Trevor Nichols TSH RANGE SEE BELOW Normal [facility] Comment on above: Result Comment: <0.3 4 UIU/ml HYPERTHYROID 0.34-5.60 UIU/ml EUTHYROID >5.60 UIU/ml HYPOTHYROID Performed By: #### T SH, FT3 ####[facility] [id number] [address]Dr. Trevor Nichols D-DIMERon 05-14-2021 D-DIMER 0.76 mg/L FEU Critically high 0.19-0.50 [facility] Comment on above: Performed By: #### H STROPN, BNP, BMP #### [facility] [address] [address] [address] Trevor Nichols D-DIMER COMMENTS SEE BELOW Normal [facility] Comment on above: Result Comment: Incr eases [...] By: #### H STROPN, BNP, BMP #### [facility] [address] [place] [address] Dr. Trevor Nichols PROF CHEM 8 (BAS METB)on Anion gap [Moles/Vol] 12.0 mmol/L Normal [facility] Comment on above: Performed By: #### H STROPN, BNP, BMP #### [facility] [address] [place] [address] Dr. Trevor Nichols Calcium [Mass/Vol] 8.5 mg/dL Normal 8.4-10.2 [facility] Comment on above: Performed By: #### H STROPN, BNP, BMP #### [facility] [address] [place] [address] Dr. Trevor Nichols Chloride [Moles/Vol] 106 mmol/L Normal 98-107 [facility] Comment on above: Performed By: #### H STROPN, BNP, BMP #### [facility] [address] [place] [address] Dr. Trevor Nichols CO2 [Moles/Vol] 25.0 mmol/L Normal 22.0-30.0 [facility] Comment on above: Performed By: #### H STROPN, BNP, BMP #### [facility] [address] [place] [address] Dr. Trevor Nichols Creatinine [Mass/Vol] 1.61 mg/dL Critically high 0.66-1.25 [facility] Comment on above: Performed By: #### H STROPN, BNP, BMP #### [facility] Laboratory [address] [place] [address] Dr. Trevor Nichols EGFR-AF GUAMANIAN 51 mL/min/1.73m2 Critically low >=60 [facility] Comment on above: Performed By: #### H STROPN, BNP, BMP #### [facility] Laboratory [address] [address] [address] Trevor Nichols EGFR-NON AF GUAMANIAN 42 mL/min/1.73m2 Critically low >=60 [facility] Comment on above: Performed By: #### H STROPN, BNP, BMP #### [facility] Laboratory [address] [address] [address] Trevor Nichols Glucose [Mass/Vol] 115 mg/dL Critically high 74-106 T [facility] Comment on above: Performed By: #### H STROPN, BNP, BMP #### [facility] Laboratory [address] [address] [address] Trevor Nichols Potassium [Moles/Vol] 4.0 mmol/L Normal 3.4-5.0 [facility] Comment on above: Performed By: #### H STROPN, BNP, BMP #### [facility] Laboratory [address] [address] [address] Trevor Nichols Sodium [Moles/Vol] 139 mmol/L Normal 137-145 [facility] Comment on above: Performed By: #### H STROPN, BNP, BMP #### [facility] Laboratory [address] [address] [address] Trevor Nichols Urea nitrogen [Mass/Vol] 20.0 mg/dL Normal 9.0-20.0 [facility] Comment on above: Performed By: #### H STROPN, BNP, BMP #### [facility] Laboratory [address] [address] [address] Trevor Nichols Urea nitrogen/Creatinine [Mass ratio] 12.4 mg/mg Normal [facility] Comment on above: Performed By: #### H STROPN, BNP, BMP #### [facility] [address] [address] [address] Trevor Nichols PROF CHEM 8 (BAS METB)on Anion gap [Moles/Vol] 19.5 mmol/L Normal [facility] Comment on above: Performed By: #### B MP ####[facility] [address] [address]Dr. Trevor Nichols Calcium [Mass/Vol] 9.1 mg/dL Normal 8.4-10.2 [facility] Comment on above: Performed By: #### B MP ####[facility] L[address]wk[address] [place], [place] [address]Dr. Vivifrancie Simone Chloride [Moles/Vol] 104 mmol/L Normal 98-107 [facility] Comment on above: Performed By: #### B MP ####[facility] A[address]cwi[address] [place], [place] [address]Dr. Vivifrancie Simone CO2 [Moles/Vol] 19.6 mmol/L Critically low 22.0-30.0 [facility] Comment on above: Performed By: #### B MP ####[facility] Psbozvrfxf[address] [place], [place] [address]Dr. Trevor Nichols Creatinine [Mass/Vol] 1.69 mg/dL Critically high 0.66-1.25 [facility] Comment on above: Performed By: #### B MP ####[facility] Z[address]wkzx[address] [place], [place] [address]Dr. Trevor Nichols EGFR-AF GUAMANIAN 48 mL/min/1.73m2 Critically low >=60 [facility] Comment on above: Performed By: #### B MP ####[facility] D[address]wnnfciqj[address] [place], [place] [address]Dr. Vivifrancie Simone EGFR-NON AF GUAMANIAN 40 mL/min/1.73m2 Critically low >=60 [facility] Comment on above: Performed By: #### B MP ####[facility] Caemvhlmpx[address] [place], [place] [address]Dr. Trevor Nichols Glucose [Mass/Vol] 95 mg/dL Normal 74-106 [facility] Comment on above: Performed By: #### B MP ####[facility] Bxoxtlpkzp[address] [place], [place] [address]Dr. Trevor Nichols Potassium [Moles/Vol] 5.4 mmol/L Critically high 3.4-5.0 [facility] Comment on above: Performed By: #### B MP ####[facility] C[address]ltsh[address] [place], [place] [address]Dr. Trevor Nichols Sodium [Moles/Vol] 138 mmol/L Normal 137-145 [facility] Comment on above: Performed By: #### B MP ####[facility] Hzlgnseycv618[address] [place], [place] [address]Dr. Trevor Nichols Urea nitrogen [Mass/Vol] 26.0 mg/dL Critically high 9.0-20.0 [facility] Comment on above: Performed By: #### B MP ####[facility] Lmsmhamura9[address] [place], [place] [address]Dr. Trevor Simone Urea nitrogen/Creatinine [Mass ratio] 15.4 mg/mg Normal [facility] Comment on above: Performed By: #### B MP ####[facility] Uobakpqbcq4[address] [place], [place] [address]Dr. Trevor Nichols BNPon 04-29-2021 Natriuretic peptide B (Bld) [Mass/Vol] 421.0 pg/mL Normal <=900.0 [facility] Comment on above: Performed By: #### B NEW VEHICLE SALES CONSULTANT, MG ####[facility] Rxhtaublwb[address] [place] [address] Rose Marie CBC W MANUAL DIFFon 04-29-20 21 ATYPICAL LYMPH # 0.19 103/ul Normal [facility] Comment on above: Performed By: #### Brodie HEMPHILL ####[facility] Hmsffnkzwm[address] [place] [address] [place]#### PERSMR ####[facility] Xoupcrkdrn[address] [place], [place] [address]Dr. Trevor Simone ATYPICAL LYMPH % 4 % Normal [facility] Comment on above: Performed By: #### C JOBY ####[facility] Hefllzefrt[address] [place] [address] [place]#### PERSMR ####[facility] Ttviuwjlpt17[address] [place], [place] [address]DrJeffery Nichols BAND # 0.2 103/ul Normal 0.0-0.3 [facility] Comment on above: Performed By: #### C JOBY ####[facility] Zwkijroywe[address] [place] [address] [place]#### PERSMR ####[facility] [address] [id number]. Yilan Nichols BAND % 5 % Normal 0-5 [facility] Comment on above: Performed By: #### C JOBY ####[facility] [address] [address]Gerken [place]#### PERSMR ####[facility] [address]zey[address] [address]Dr. Yilan Nichols BASOM # 0.05 103/ul Normal 0.00-0.10 [facility] Comment on above: Performed By: #### C JOBY ####[facility] Pjgtkosyyo[address] [place] [address] [place]#### PERSMR ####[facility] Keoysnqhxa8[address] [place], [place] [address]Dr. Yifrancie Nichols BASOM % 1.0 % Normal 0.2-2.0 [facility] Comment on above: Performed By: #### C JOBY ####[facility] Lwtgaawlch[address] [place] [address] [place]#### PERSMR ####[facility] Mqlfetoufe[address] [place], [place] [address]Dr. Yilan Nichols BLAST # Normal [facility] Comment on above: Performed By: #### C JOBY ####[facility] Rrfyvspmbo[address] [place] [address] [place]#### PERSMR ####[facility] Ycrppeyyuq[address] [place], [place] [address]Dr. Yilan Nichols BLAST % Normal [facility] Comment on above: Performed By: #### C JOBY ####[facility] Tygendlqxw[address] [place] [address] [place]#### PERSMR ####[facility] [address] [address]Dr. Vivilan Nichols CORRECTED WBC Normal 4.0-11.0 [facility] Comment on above: Performed By: #### C JOBY ####[facility] Zshpogjksu026[address] [place]#### PERSMR ####[facility] Dtfujbtenb3[address] [place], [place] [address]Dr. Trevor Nichols EOS # 0.00 103/ul Normal 0.00-0.70 [facility] Comment on above: Performed By: #### C JOBY ####[facility] Xwdqlxyrcw17[address] [place] [address] [place] Marie#### PERSMR ####[facility] Cizdzeqobh[address] [place], [place] [address]Dr. Trevor Nichols EOS% 0.0 % Critically low 0.9-7.0 [facility] Comment on above: Performed By: #### C JOBY ####[facility] Fydonksavg[address] [place] [address] [place] Marie#### PERSMR ####[facility] Axiyshswdw959[address] [place], [place] [address]Dr. Trevor Nichols HCT 35.7 % Critically low 42.0-54.0 [facility] Comment on above: Performed By: #### Brodie HEMPHILL ####[facility] Zchchtf[address] [place] [address] [place]#### PERSMR ####[facility] Yiaribwygx[address] [place], [place] [address]Dr. Trevor Nichols HGB 11.7 g/dl Critically low 14.0-18.0 [facility] Comment on above: Performed By: #### Brodie HEMPHILL ####[facility] Gkleauzhbn[address] [place] [address] [place]#### PERSMR ####[facility] Kgmofbpbqg09[address] [place], [place] [address]Dr. Trevor Nichols LYMPHM # 0.72 103/ul Critically low 1.20-3.80 [facility] Comment on above: Performed By: #### C JOBY ####[facility] Xsrlwqxaqo[address] [place] [address] [place]#### PERSMR ####[facility] Wdnxtixgrd067[address] [place], [place] [address]Dr. Trevor Nichols LYMPHM% 15.0 % Critically low 20.5-60.0 [facility] Comment on above: Performed By: #### Brodie HEMPHILL ####[facility] Umzefswnop87[address] [place], [place] [address]Gerken [place]#### PERSMR ####[facility] [address]emmc[address] [id number]. Trevor Nichols MCH 34.4 pg Critically high 25.9-34.0 [facility] Comment on above: Performed By: #### C JOBY ####[facility] Iuzvxvhqnu[address] [place] [address] [place] Marie#### PERSMR ####[facility] Srxfdzbkcq[address] [place], [place] [address]Dr. Trevor Nichols MCHC 32.8 g/dl Normal 29.9-35.2 [facility] Comment on above: Performed By: #### Brodie HEMPHILL ####[facility] Ztwzjuyajr[address] [place] [address] [place]#### PERSMR ####[facility] Qnryrccpip6664[address] [place], [place] [address]Dr. Trevor Nichols MCV 105.0 fL Critically high 80.0-94.0 [facility] Comment on above: Performed By: #### Brodie HEMPHILL ####[facility] Unhgmfkejb972[address] [place] [address] [place] Marie#### PERSMR ####[facility] Oyyufzjhha508[address] [place], [place] [address]Dr. Trevor Nichols METAMYELOCYTE # Normal [facility] Comment on above: Performed By: #### Brodie HEMPHILL ####[facility] Koalvwhtuu88[address] [place] [address] [place] Marie#### PERSMR ####[facility] Babeyqrzew[address] [place], [place] [address]Dr. Trevor Nichols METAMYELOCYTE % Normal [facility] Comment on above: Performed By: #### Brodie HEMPHILL ####[facility] Zokwcmshvc764[address] [place] [address] [place]#### PERSMR ####[facility] [address] [id number]. Trevor Nichols MONOM# 1.25 103/ul Critically high 0.30-0.80 [facility] Comment on above: Performed By: #### Brodie HEMPHILL ####[facility] [address]clpv[address] [address]Gerken [place]#### PERSMR ####[facility] Xfr[address]ogchz[address] [address]Dr. Trevor Nichols MONOM% 26.0 % Critically high 1.7-12.0 [facility] Comment on above: Performed By: #### Brodie HEMPHILL ####[facility] Lkbhnbmuhw47[address] [place], [place] [address]Gerken [place]#### PERSMR ####[facility] Btuveqnjwl4334[address] [place], [place] [address]Dr. Trevor Nichols MPV 10.5 fL Normal 9.5-13.5 [facility] Comment on above: Performed By: #### Brodie HEMPHILL ####[facility] Csvdsbbzvr[address] [place] [address] [place]#### PERSMR ####[facility] Bbnhbdnmxs[address] [place], [place] [address]Dr. Trevor Nichols MYELOCYTE # Normal [facility] Comment on above: Performed By: #### Brodie HEMPHILL ####[facility] Dbprsvhcto[address] [place], [place] [address]Gerken [place]#### PERSMR ####[facility] [address]hajx[address] [address]Dr. Trevor Nichols MYELOCYTE % Normal [facility] Comment on above: Performed By: #### Brodie HEMPHILL ####[facility] [address]zhyonbbf[address] [address]Gerken [place]#### PERSMR ####[facility] [address] [address]Dr. Trevor Nichols NRBC Normal [facility] Comment on above: Performed By: #### Brodie HEMPHILL ####[facility] Zkwvxoyfqa4120 [address] [place]#### PERSMR ####[facility] Zcpugtpews[address] [address]Dr. Trevor Nichols PATH REVIEW INDICATED Normal [facility] Comment on above: Performed By: #### Brodie HEMPHILL ####[facility] Nmfzkdtovd[address] [address]Gerken [place]#### PERSMR ####[facility] W[address]mmppvje7[address] [address]Dr. Trevor Nichols PLT 158 103/ul Normal 150-450 [facility] Comment on above: Performed By: #### Brodie HEMPHILL ####[facility] Gaecqmunck[address] [place] [address] [place]#### PERSMR ####[facility] Hxobrqhnoq2[address] [place], [place] [address]Dr. Trevor Nichols RBC 3.40 106/ul Critically low 4.70-6.10 [facility] Comment on above: Performed By: #### Brodie HEMPHILL ####[facility] Xgndgrsmlo45[address] [place] [address] [place]#### PERSMR ####[facility] Bujrxekejz0022[address] [place], [place] [address]Dr. Trevor Nichols RDW 15.6 % Critically high 11.0-15.0 [facility] Comment on above: Performed By: #### Brodie HEMPHILL ####[facility] Zuylnmjxlh[address] [place] [address] [place]#### PERSMR ####[facility] Vguexdgerg04[address] [place], [place] [address]Dr. Trevor Nichols SEG # 2.35 103/ul Normal 1.40-6.50 [facility] Comment on above: Performed By: #### Brodie HEMPHILL ####[facility] Drrwxvzcqq15[address] [place] [address] [place]#### PERSMR ####[facility] Cylklzhxyq[address] [place], [place] [address]Dr. Trevor Ncihols SEG % 49.0 % Normal 43.0-75.0 [facility] Comment on above: Performed By: #### Brodie STAHLNADIA ####[facility] Uoyjnhfhzi0893 [address] [place]#### PERSMR ####[facility] Qwdqyoqvwt5[address] [address]Dr. Trevor Nichols WBC 4.8 103/ul Normal 4.0-11.0 [facility] Comment on above: Performed By: #### Brodie STAHLNADIA ####[facility] Bsugrsyrvm67[address] [place] [address] [place]#### PERSMR ####[facility] Judoetltsc648[address] [place], [place] [address]Dr. Trevor Nichols MAGNESIUMon 04-29-2021 Magnesium [Mass/Vol] 2.4 mg/dL Critically high 1.6-2.3 [facility] Comment on above: Performed By: #### B NEW VEHICLE SALES CONSULTANT, MG ####[facility] Vwhclwzgil[address] [place] [address] Rose Marie PERIPHERAL SMEARon Pathologist Cyto stain Nom (Cvx/Vag) [ID] DR. BHARTI PARDO Normal [facility] Comment on above: Result Comment: Kate pheral blood smear reveals isolated monocytosis with unremarkable morphology. The neutrophils and platelets are morphologically unremarkable. No atypical lymphocytes or blasts are noted. A reactive process is favored. Clinical correlation is suggested. Dr Bharti Pardo 05/01/2021 Performed By: #### Brodie HEMPHILL ####[facility] Uqsxrmvuuv[address] [place] [address] [place]#### PERSMR ####[facility] Wppusfnzxe[address] [place], [place] [address]Dr. Trevor Nichols VITAMIN D 25 OHon 04-29-2021 VIT D 25-OH 71.4 ng/mL Normal [facility] Comment on above: Performed By: #### V ITAD ####[facility] Muezlkzpuy[address] [place] [address] Rose Marie VIT D RANGES SEE BELOW Normal [facility] Comment on above: Result Comment: <20 ng/mL Vit D deficient 20 - <30 ng/mL Vit D insufficient 30 - 100 ng/mL Vit D sufficient >100 ng/mL Potential Toxicity Performed By: #### V ITAD ####[facility] Hnatljemyt0562 [place], [place] [address]NmltadDick Trotter POC GLUCOSE LABon 06-30-2020 Glucose [Mass/Vol] 108 mg/dL High 70-100 [facility] Comment on above: Performed By: #### 4 1000, 28562 #### [facility] [address] [place] [address], [facility] Glucose [Mass/Vol] 165 mg/dL High 70-100 [facility] Comment on above: Performed By: #### 4 1000, 36421 #### [facility] [address] [place] [address], [facility] C REACTIVE PROTEINon 020 CRP [Mass/Vol] 27.8 mg/L High 0.0-7.0 [facility] Comment on above: Order Comment: No: D o not add to previous draw Performed By: #### 4 1000, 06700, 10112 #### [facility] [address] CBC COMPLETE BLOOD COUNTon 1 08-29-2019 Erythrocyte distribution width (RBC) [Ratio] 14.3 % Normal 11.5-15.0 [facility] Comment on above: Order Comment: No: D o not add to previous draw Performed By: #### 4 1000, [id number] #### [facility] [address] [place] [address], [facility] Hematocrit (Bld) [Volume fraction] 34.7 % Low 39.0-50.0 [facility] Comment on above: Order Comment: No: D o not add to previous draw Performed By: #### 4 1000, 99642 #### [facility] [address] [place] [address], [facility] Hemoglobin (Bld) [Mass/Vol] 11.6 g/dL Low 13.0-17.0 [facility] Comment on above: Order Comment: No: D o not add to previous draw Performed By: #### 4 1000, 23385 #### [facility] [address] [facility] [place] [address], [facility] MCH (RBC) [Entitic mass] 35.5 pg High 27.0-33.0 [facility] Comment on above: Order Comment: No: D o not add to previous draw Performed By: #### 4 1000, 33770 #### [facility] [address] [facility] [place] [address], [facility] MCHC (RBC) [Mass/Vol] 33.4 g/dL Normal 32.0-35.0 [facility] Comment on above: Order Comment: No: D o not add to previous draw Performed By: #### 4 1000, 47436 #### [facility] [address] [facility] [place] [address], [facility] MCV (RBC) [Entitic vol] 106.1 fL High 82.0-98.0 [facility] Comment on above: Order Comment: No: D o not add to previous draw Performed By: #### 4 1000, 74121 #### [facility] [address] [facility] [place] [address], [facility] Nucleated RBC/100 WBC (Bld) [Ratio] 0 % Normal 0-0 [facility] Comment on above: Order Comment: No: D o not add to previous draw Performed By: #### 4 1000, 68376 #### [facility] [address] [facility] [place] [address], [facility] PLAT CNT 150 10*3/uL Normal 150-400 [facility] Comment on above: Order Comment: No: D o not add to previous draw Performed By: #### 4 1000, 13884 #### [facility] [address] [facility] [place] [address], [facility] RBC (Bld) [#/Vol] 3.27 10*6/uL Low 4.20-5.70 [facility] Comment on above: Order Comment: No: D o not add to previous draw Performed By: #### 4 1000, 73157 #### [facility] [address] [facility]. [address] WBC (Bld) [#/Vol] 5.86 10*3/uL Normal 4.00-10.60 [facility] Comment on above: Order Comment: No: D o not add to previous draw Performed By: #### 4 1000, 38962 #### [facility] [address] CPKon 06-29-2020 CK [Catalytic activity/Vol] 45 U/L Normal 30-223 [facility] Comment on above: Order Comment: Unkno wn Performed By: #### 9 9909, 14770, 71542, [address] #### [address] BRAIN WO CONTRASTon 06-29 CT BRAIN WO CONTRAST [facility] Department of Radiology [address] [place] [id number] Patient Name: CHIKI JUAREZ : 1945 Sex: M Age: Race: White Pt. Location: [id number] Patient Status: I Ordered Date: 06/29/2020 9:20:00 [...] region. Electronically signed: Aleta Armas. Transcribed by: [email or web address], User Resident: Electronically Signed by: ALETA ARMAS @ 06/29/2020 07:16 PM Normal [facility] Comment on above: Order Comment: No: D o not add to previous draw D DIMER TESTon 06-29-2020 D-DIMER TEST 1.44 mcg/mL FEU High 0.27-0.49 [facility] Comment on [...] thrombotic event. Performed By: #### 4 1000, 96969, 26554 #### [facility] [address] [place] [address], [facility] FERRITINon 06-29-2020 Ferritin [Mass/Vol] 271 ng/mL Normal 24-336 [facility] Comment on above: Order Comment: Unkno wn Performed By: #### 9 5209, 91046, 20125, 09899 #### [facility] [address] [place] [address], [facility] LDH BLOODon 06-29-2020 LDH 148 Units/L Normal 140-271 [facility] Comment on above: Order Comment: Unkno wn Performed By: #### 9 9909, 28683, 47731, 37133 #### [facility] [address] [place] [address], [place] LIPID PROFILEon 06-29-2020 Cholesterol [Mass/Vol] 176 mg/dL Normal 120-200 [facility] Comment on above: Order Comment: No: D o not add to previous draw Result Comment: CHOL ESTEROL REFERENCE RANGE: 20 YEARS AND OLDER CARDIOVASCULAR RISK Less than 200 mg/dl Low Risk 200 to 239 mg/dl Borderline Risk 240 mg/dl and greater High Risk Performed By: #### 4 1000, 16878, 86628 #### [facility] [address] [place] [address], [facility] Cholesterol in HDL [Mass/Vol] 39 mg/dL Normal 23-92 [facility] Comment on above: Order Comment: No: D o not add to previous draw Result Comment: Slig ht variation in normal range could be due to gender and/or age. HDL CHOLESTEROL REFERENCE RANGE: 20 years and older Cardiovascular Risk > or =60 mg/dL Desirable 40 TO 59 mg/dL Low Risk <40 mg/dL High Risk Performed By: #### 4 1000, 32855, 37657 #### [facility] [address] [place] [address], [place] Cholesterol in LDL [Mass/Vol] 100 mg/dL Normal 0-130 [facility] Comment on above: Order Comment: No: D o not add to previous draw Result Comment: LDL IS A CALCULATION LDL IS ONLY VALID IF THE TRIG IS LESS THAN 400. Performed By: #### 4 1000, 55399, 65965 #### [facility] [address] [place] [address], [place] Cholesterol.total/Ch olesterol in HDL [Mass ratio] 4.5 {ratio} Normal 0.0-4.5 [facility] Comment on above: Order Comment: No: D o not add to previous draw Performed By: #### 4 1000, 06163, 35460 #### [facility] [address] [place] [address], [facility] NON-HDL CHOLESTEROL 137 mg/dL Normal [facility] Comment on above: Order Comment: No: D o not add to previous draw Performed By: #### 4 1000, 64273, 53899 #### [facility] [address] Triglyceride [Mass/Vol] 187 mg/dL High 40-149 [facility] Comment on above: Order Comment: No: D o not add to previous draw Result Comment: TRIG LYCERIDE REFERENCE RANGE: 20 YEARS AND OLDER CARDIOVASCULAR RISK LESS THAN 150 mg/dl LOW RISK 150 TO 199 mg/dl BORDERLINE RISK 200 mg/dl AND GREATER HIGH RISK Performed By: #### 4 1000, 97288, 79254 #### [facility] [address] [place] [address], [facility] VLDL CHOL 37 mg/dL Normal 0-40 [facility] Comment on above: Order Comment: No: D o not add to previous draw Performed By: #### 4 1000, 31130, 04183 #### [facility] [address] [place] [address], [facility] LIVER BATTERYon 06-29-2020 Albumin [Mass/Vol] 3.4 g/dL Low 3.5-5.7 [facility] Comment on above: Order Comment: Unkno wn Performed By: #### 9 9909, 12230, 11327, 88974 #### [facility] [address] [place] [address], [facility] ALKALINE PHOSPH 60 IU/L Normal 34-104 [facility] Comment on above: Order Comment: Unkno wn Performed By: #### 9 9909, 23108, 30570, 12123 #### [facility] [address] [place] [address], [place] ALT [Catalytic activity/Vol] 8 U/L Normal 7-52 [facility] Comment on above: Order Comment: Unkno wn Performed By: #### 9 9909, 51624, 05062, 70389 #### [facility] [address] [place] [address], [place] AST [Catalytic activity/Vol] 11 U/L Low 13-39 [facility] Comment on above: Order Comment: Unkno wn Performed By: #### 9 9909, 62786, 18125, 22854 #### [facility] [address] [place] [address], [place] Bilirubin [Mass/Vol] 0.5 mg/dL Normal 0.3-1.0 [facility] Comment on above: Order Comment: Unkno wn Performed By: #### 9 9909, 67899, 16766, 99346 #### [facility] [address] [place] [address], [place] Bilirubin.direct [Mass/Vol] 0.1 mg/dL Normal 0.0-0.2 [facility] Comment on above: Order Comment: Unkno wn Performed By: #### 9 9909, 50710, 16508, 68460 #### [facility] [address] [place] [address], [place] Protein [Mass/Vol] 5.8 g/dL Low 6.0-8.3 [facility] Comment on above: Order Comment: Unkno wn Performed By: #### 9 9909, 97576, 98023, 04839 #### [facility] [address] [place] [address], [place] POC GLUCOSE LABon 06-29-2020 Glucose [Mass/Vol] 112 mg/dL High 70-100 [facility] Comment on above: Performed By: #### 4 1000, 26464 #### [facility] [address] [place] [address], [place] Glucose [Mass/Vol] 105 mg/dL High 70-100 [facility] Comment on above: Performed By: #### 4 1000, 88056 #### [facility] [address] [place] [address], [place] Glucose [Mass/Vol] 94 mg/dL Normal 70-100 [facility] Comment on above: Performed By: #### 4 1000, 35769, 25750 #### [facility] [address] [place] [address], [place] Glucose [Mass/Vol] 121 mg/dL High 70-100 [facility] Comment on above: Performed By: #### 4 1000, 32312 #### [facility] [address] [place] [address], [facility] PORTABLE CHEST 1 VIEWon 06-17 PORTABLE CHEST 1 VIEW [facility] Department of Radiology [address] [place] [address] [phone] Patient Name: CHIKI JUAREZ : 1945 Sex: M Age: Race: White Pt. Location: [id number] Patient Status: I Ordered Date: 06/29/2020 5:45:00 [...] placement. Electronically signed: Aleta Armas. Transcribed by: [email or web address], User Resident: Electronically Signed by: ALETA ARMAS @ 06/29/2020 08:15 PM Normal [facility] Comment on above: Order Comment: No: D o not add to previous draw BASIC METABOLIC PANELon 11 Calcium [Mass/Vol] 8.8 mg/dL Normal 8.6-10.3 [facility] Comment on above: Order Comment: No: D o not add to previous draw Performed By: #### 4 1000, 10100, 37048 #### [facility] [address] [place] [address], [place] Chloride [Moles/Vol] 102 mmol/L Normal 98-107 [facility] Comment on above: Order Comment: No: D o not add to previous draw Performed By: #### 4 1000, 03485, 37509 #### [facility] [address] [place] [address], [place] CO2 [Moles/Vol] 24 mmol/L Normal 21-31 [facility] Comment on above: Order Comment: No: D o not add to previous draw Performed By: #### 4 1000, 55718, 31343 #### [facility] [address] [place] [address], [place] Creatinine [Mass/Vol] 1.31 mg/dL High 0.70-1.30 [facility] Comment on above: Order Comment: No: D o not add to previous draw Performed By: #### 4 1000, , 71402 #### [facility] [address] [place] [address], [place] GFR/1.73 sq M predicted among blacks MDRD (S/P/Bld) [Vol rate/Area] mL/min/{1.73_m2} Normal >60 [facility] Comment on above: Order Comment: No: D o not add to previous draw Result Comment: Calc ulation may not be valid for patients over 70 years Performed By: #### 4 1000, , 93034 #### [facility] [address] [place] [address], [place] GFR/1.73 sq M predicted among non-blacks MDRD (S/P/Bld) [Vol rate/Area] 54 ml/min/1.73sq m Abnormal >60 [facility] Comment on above: Order Comment: No: D o not add to previous draw Result Comment: Calc ulation may not be valid for patients over 70 years Performed By: #### 4 1000, , 76222 #### [facility] [address] [place] [address], [place] Glucose [Mass/Vol] 96 mg/dL Normal 70-100 [facility] Comment on above: Order Comment: No: D o not add to previous draw Performed By: #### 4 1000, , 28040 #### [facility] [address] [place] [address], [place] Potassium [Moles/Vol] 4.3 mmol/L Normal 3.5-5.1 [facility] Comment on above: Order Comment: No: D o not add to previous draw Performed By: #### 4 1000, , 52915 #### [facility] [address] [place] [address], [place] Sodium [Moles/Vol] 133 mmol/L Low 136-145 [facility] Comment on above: Order Comment: No: D o not add to previous draw Performed By: #### 4 1000, , 60629 #### [facility] [address] [place] [address], [facility] Urea nitrogen [Mass/Vol] 26 mg/dL High 7-25 [facility] Comment on above: Order Comment: No: D o not add to previous draw Performed By: #### 4 1000, , 61231 #### [facility] [address] [place] [address], [facility] CBC COMPLETE BLOOD COUNTon 08-28-2019 Erythrocyte distribution width (RBC) [Ratio] 14.4 % Normal 11.5-15.0 [facility] Comment on above: Order Comment: No: D o not add to previous draw Performed By: #### 4 1000, , #### [facility] [address] [place] [address], [facility] Hematocrit (Bld) [Volume fraction] 35.2 % Low 39.0-50.0 [facility] Comment on above: Order Comment: No: D o not add to previous draw Performed By: #### 4 999, , 77980 #### [facility] [address] [place] [address], [facility] Hemoglobin (Bld) [Mass/Vol] 11.8 g/dL Low 13.0-17.0 [facility] Comment on above: Order Comment: No: D o not add to previous draw Performed By: #### 4 1000, , 98833 #### [facility] [address] [place] [address], [place] MCH (RBC) [Entitic mass] 35.5 pg High 27.0-33.0 [facility] Comment on above: Order Comment: No: D o not add to previous draw Performed By: #### 4 1000, , 47470 #### [facility] [address] [place] [address], [place] MCHC (RBC) [Mass/Vol] 33.5 g/dL Normal 32.0-35.0 [facility] Comment on above: Order Comment: No: D o not add to previous draw Performed By: #### 4 1000, 70034, 11264 #### [facility] [address] [place] [address], [facility] MCV (RBC) [Entitic vol] 106.0 fL High 82.0-98.0 [facility] Comment on above: Order Comment: No: D o not add to previous draw Performed By: #### 4 1000, , 83120 #### [facility] [address] [place] [address], [facility] Nucleated RBC/100 WBC (Bld) [Ratio] 0 % Normal 0-0 [facility] Comment on above: Order Comment: No: D o not add to previous draw Performed By: #### 4 1000, , 34256 #### [facility] [address] [place] [address], [facility] PLAT CNT 158 10*3/uL Normal 150-400 [facility] Comment on above: Order Comment: No: D o not add to previous draw Performed By: #### 4 1000, , 55094 #### [facility] [address] [facility] [address], [facility] RBC (Bld) [#/Vol] 3.32 10*6/uL Low 4.20-5.70 [facility] Comment on above: Order Comment: No: D o not add to previous draw Performed By: #### 4 1000, , 92647 #### [facility] [address] [facility] [place] [id number], [facility] WBC (Bld) [#/Vol] 7.25 10*3/uL Normal 4.00-10.60 [facility] Comment on above: Order Comment: No: D o not add to previous draw Performed By: #### 4 1000, , 85512 #### [facility] [address] [place] [address], [facility] Cardiovascular Lab Reporton 06-28-2020 Cardiovascular Lab Report [facility] Patient Name: Chiki Juarez [facility] MR #: [id number] Physician: Connor Carrera MD Department of Service Date: 06/28/2020 Medicine Birthdate: 1945 Division of Room #: 3CD [id number] Cardiology Adult Cardiovascular Services [facility] [address] [place], [place] [address] Cardiovascular Laboratory Report DUAL CHAMBER PACEMAKER IMPLANT PROCEDURE NOTE DATE OF PROCEDURE: 06/28/2020 PERFORMING PHYSICIAN: Dr. Connor Carrera CONSENT: Patient LOCATION: EP Lab PROCEDURE PERFORMED: 1. Implantation of pacemaker ([employer]) 2. Ultrasound guided venous access INDICATIONS: [...] using modified seldinger technique using a 5 Setswana micro-puncture needle on two occasions and 0.24 [...] was made enough for the device. 6 Setswana Safesheaths were placed over the wire. An active fixation [employer] pacing lead was then delivered through the 6Fsheath to the right ventricle. After confirmation of lead position on orthogonal views (PARK and CZECH) to confirm septal position, the screw was activated, and the lead was placed in the right ventricular mid cavity towards the septum. After confirmation of good sensing parameters, injury pattern and pacing thresholds, 10V pacing was done and no diaphragmatic stimulation was noted. It was then secured in the pocket using three 1-0 Silk sutures. Then an active fixation [employer] lead was delivered through the 6Fsheath to the right atrial appendage. After confirmation of lead position on orthogonal views (PARK and CZECH), the screw was activated. After confirmation of [...] immediate procedural complications were noted. Device info: [employer] Accolade MRI EL Model# L331 Serial# [id number] RA lead: Model# INGEVITY [id number] (45cms) Serial# [id number] Sensin.7mV Threshold: 0.9V@0.4ms Impedance: 666Ohms RV lead: Model# [id number](52cms) Serial# [id number] Sensin.1mV Threshold: 0.4V@0.4ms Impedance: 746Ohms POST PROCEDURE [...] P/Connor Carrera MD Date Trans: 06/28/2020 03:33 P/mmo [id number] cc: Will Sherwood M.D. [address] [place] [phone] Normal [facility] MAGNESIUM BLOODon 06-28-2020 Magnesium [Mass/Vol] 2.1 mg/dL Normal 1.9-2.7 [facility] Comment on above: Order Comment: No: D o not add to previous draw Performed By: #### 4 1000, 99806, 89557 #### [facility] [address] [place] [address], [place] PHOSPHORUS BLOODon 0 Phosphate [Mass/Vol] 3.7 mg/dL Normal 2.5-5.0 [facility] Comment on above: Order Comment: No: D o not add to previous draw Performed By: #### 4 1000, 80806, 69370 #### [facility] [address] [place] [address], [place] POC GLUCOSE LABon 06-28-2020 Glucose [Mass/Vol] 93 mg/dL Normal 70-100 [facility] Comment on above: Performed By: #### 4 1000, 44016 #### [facility] [address] [place] [address], [place] Glucose [Mass/Vol] 90 mg/dL Normal 70-100 [facility] Comment on above: Performed By: #### 4 1000, 42788 #### [facility] [address] [place] [address], [place] Glucose [Mass/Vol] 97 mg/dL Normal 70-100 [facility] Comment on above: Performed By: #### 4 1000, 54171 #### [facility] [address] [place] [address], [place] Glucose [Mass/Vol] 99 mg/dL Normal 70-100 [facility] Comment on above: Performed By: #### 4 1000, 00668 #### [facility] [address] [place] [address], [facility] APTTon 06-27-2020 aPTT Coag (Bld) [Time] 34.8 s Normal 25.0-35.0 [facility] Comment on [...] THIS PURPOSE. Performed By: #### 4 1000, 67771 #### [facility] [address] [place] [address], [facility] BASIC METABOLIC PANELon 06-17 Calcium [Mass/Vol] 9.1 mg/dL Normal 8.6-10.3 [facility] Comment on above: Order Comment: No: D o not add to previous draw Performed By: #### 4 1000, 57634, 80705 #### [facility] [address] [place] [address], [place] Chloride [Moles/Vol] 104 mmol/L Normal 98-107 [facility] Comment on above: Order Comment: No: D o not add to previous draw Performed By: #### 4 1000, 28685, 58026 #### [facility] [address] [place] [address], [place] CO2 [Moles/Vol] 23 mmol/L Normal 21-31 [facility] Comment on above: Order Comment: No: D o not add to previous draw Performed By: #### 4 1000, 62727, 23309 #### [facility] [address] [place] [address], [place] Creatinine [Mass/Vol] 1.21 mg/dL Normal 0.70-1.30 [facility] Comment on above: Order Comment: No: D o not add to previous draw Performed By: #### 4 1000, , 43079 #### [facility] [address] [place] [address], [place] GFR/1.73 sq M predicted among blacks MDRD (S/P/Bld) [Vol rate/Area] mL/min/{1.73_m2} Normal >60 [facility] Comment on above: Order Comment: No: D o not add to previous draw Result Comment: Calc ulation may not be valid for patients over 70 years Performed By: #### 4 1000, , 72538 #### [facility] [address] [place] [address], [place] GFR/1.73 sq M predicted among non-blacks MDRD (S/P/Bld) [Vol rate/Area] 59 ml/min/1.73sq m Abnormal >60 [facility] Comment on above: Order Comment: No: D o not add to previous draw Result Comment: Calc ulation may not be valid for patients over 70 years Performed By: #### 4 1000, , 23891 #### [facility] [address] [place] [address], [place] Glucose [Mass/Vol] 132 mg/dL High 70-100 [facility] Comment on above: Order Comment: No: D o not add to previous draw Performed By: #### 4 1000, , 21514 #### [facility] [address] [place] [address], [place] Potassium [Moles/Vol] 5.2 mmol/L High 3.5-5.1 [facility] Comment on above: Order Comment: No: D o not add to previous draw Performed By: #### 4 1000, 68347, 20970 #### [facility] [address] Sodium [Moles/Vol] 135 mmol/L Low 136-145 [facility] Comment on above: Order Comment: No: D o not add to previous draw Performed By: #### 4 1000, 85727, 33029 #### [facility] [address] [facility] [address] [address] Urea nitrogen [Mass/Vol] 21 mg/dL Normal 7-25 [facility] Comment on above: Order Comment: No: D o not add to previous draw Performed By: #### 4 1000, 40941, 82753 #### [facility] [address] [facility]. [address] C REACTIVE PROTEINon 020 CRP [Mass/Vol] 40.5 mg/L High 0.0-7.0 [facility] Comment on above: Order Comment: No: D o not add to previous draw Performed By: #### 4 1000, 68485, 31065 #### [facility] [address] [facility]. [address] CBC W/DIFFon 06-27-2020 ABS BASOPHILS 0.0 10*3/uL Normal 0.0-0.2 [facility] Comment on above: Order Comment: No: D o not add to previous draw Performed By: #### 4 1000, 39639 #### [facility] [address] [facility]. [address] ABS NEUTROPHILS 4.5 10*3/uL Normal 1.6-7.6 [facility] Comment on above: Order Comment: No: D o not add to previous draw Performed By: #### 4 1000, 49292 #### [facility] [address] [place] [address], [facility] Basophils/100 WBC (Bld) 0.0 % Normal 0.0-1.0 [facility] Comment on above: Order Comment: No: D o not add to previous draw Performed By: #### 4 1000, 49817 #### [facility] [address] [place] [address], [facility] Eosinophils (Bld) [#/Vol] 0.0 10*3/uL Normal 0.0-0.5 [facility] Comment on above: Order Comment: No: D o not add to previous draw Performed By: #### 4 1000, 07180 #### [facility] [address] [place] [id number], [facility] Eosinophils/100 WBC (Bld) 0.0 % Normal 0.0-6.0 [facility] Comment on above: Order Comment: No: D o not add to previous draw Performed By: #### 4 1000, 73480 #### [facility] [address] [place] [address], [facility] Erythrocyte distribution width (RBC) [Ratio] 14.1 % Normal 11.5-15.0 [facility] Comment on above: Order Comment: No: D o not add to previous draw Performed By: #### 4 1000, 48911 #### [facility] [address] [facility] [facility] [place] [address], [facility] GIANT PLATELETS Present Normal [facility] Comment on above: Order Comment: No: D o not add to previous draw Performed By: #### 4 1000, 70093 #### [facility] [address] [place] [address], [facility] Hematocrit (Bld) [Volume fraction] 36.0 % Low 39.0-50.0 [facility] Comment on above: Order Comment: No: D o not add to previous draw Performed By: #### 4 1000, 47307 #### [facility] [address] [place] [id number], [facility] Hemoglobin (Bld) [Mass/Vol] 11.8 g/dL Low 13.0-17.0 [facility] Comment on above: Order Comment: No: D o not add to previous draw Performed By: #### 4 1000, 41505 #### [facility] [address] [place] [address], [facility] Lymphocytes (Bld) [#/Vol] 0.5 10*3/uL Low 1.2-4.0 [facility] Comment on above: Order Comment: No: D o not add to previous draw Performed By: #### 4 1000, 58627 #### [facility] [address] [place] [id number], [facility] Lymphocytes/100 WBC (Bld) 8.2 % Low 20.0-45.0 [facility] Comment on above: Order Comment: No: D o not add to previous draw Performed By: #### 4 1000, 05192 #### [facility] [address] [place] [address], [facility] MCH (RBC) [Entitic mass] 35.2 pg High 27.0-33.0 [facility] Comment on above: Order Comment: No: D o not add to previous draw Performed By: #### 4 1000, 17063 #### [facility] [address] [place] [address], [facility] MCHC (RBC) [Mass/Vol] 32.8 g/dL Normal 32.0-35.0 [facility] Comment on above: Order Comment: No: D o not add to previous draw Performed By: #### 4 1000, 43926 #### [facility] [facility] [address] [place] [id number], [facility] MCV (RBC) [Entitic vol] 107.5 fL High 82.0-98.0 [facility] Comment on above: Order Comment: No: D o not add to previous draw Performed By: #### 4 1000, [id number] #### [facility] [address] [place] [id number], [facility] METAMYELO 3.7 % High 0.0-0.0 [facility] Comment on above: Order Comment: No: D o not add to previous draw Performed By: #### 4 1000, [id number] #### [facility] [address] [place] [address], [facility] Monocytes (Bld) [#/Vol] 0.5 10*3/uL Normal 0.1-1.0 [facility] Comment on above: Order Comment: No: D o not add to previous draw Performed By: #### 4 1000, 81684 #### [facility] [address] [place] [address], [facility] MONOS 9.2 % Normal 5.0-12.0 [facility] Comment on above: Order Comment: No: D o not add to previous draw Performed By: #### 4 1000, 85115 #### [facility] [address] [place] [address], [facility] MYELOS 3.7 % High 0.0-0.0 [facility] Comment on above: Order Comment: No: D o not add to previous draw Performed By: #### 4 1000, [id number] #### [facility] [address] [place] [address], [facility] Neutrophils/100 WBC (Bld) 75.2 % High 40.0-72.0 [facility] Comment on above: Order Comment: No: D o not add to previous draw Performed By: #### 4 1000, 63851 #### [facility] [address] [place] [id number], [facility] NRBC SCAN Present Normal [facility] Comment on above: Order Comment: No: D o not add to previous draw Performed By: #### 4 1000, 45968 #### [facility] [address] [place] [id number], [facility] Nucleated RBC/100 WBC (Bld) [Ratio] 0 % Normal 0-0 [facility] Comment on above: Order Comment: No: D o not add to previous draw Performed By: #### 4 1000, 01106 #### [facility] [address] PLAT CNT 153 10*3/uL Normal 150-400 [facility] Comment on above: Order Comment: No: D o not add to previous draw Performed By: #### 4 1000, 86011 #### [address] [place] [address], [facility] RBC (Bld) [#/Vol] 3.35 10*6/uL Low 4.20-5.70 [facility] Comment on above: Order Comment: No: D o not add to previous draw Performed By: #### 4 1000, 03699 #### [address] [place] [address], [facility] WBC (Bld) [#/Vol] 5.92 10*3/uL Normal 4.00-10.60 [facility] Comment on above: Order Comment: No: D o not add to previous draw Performed By: #### 4 1000, 77212 #### [address] CPKon 06-27-2020 CK [Catalytic activity/Vol] 90 U/L Normal 30-223 [facility] Comment on above: Order Comment: No: D o not add to previous draw Performed By: #### 4 1000, 62566, 42417 #### [address] CTA HEADon 06-27-2020 CTA HEAD [facility] Department of Radiology [address] [place] [id number] Patient Name: CHIKI JUAREZ : 1945 Sex: M Age: Race: White Pt. Location: [id number] Patient Status: I Ordered Date: 06/27/2020 9:05:00 [...] achievable Electronically signed: Ashu García. Transcribed by: [email or web address], User Resident: Electronically Signed by: ASHU GARCÍA @ 06/27/2020 01:12 PM Normal [facility] Comment on above: Order Comment: No: D o not add to previous draw CTA NECKon 06-27-2020 CTA NECK [facility] Department of Radiology [address] [place] [id number] Patient Name: CHIKI JUAREZ : 1945 Sex: M Age: Race: White Pt. Location: [id number] Patient Status: I Ordered Date: 06/27/2020 9:05:00 [...] viewed on a separate workstation. The [place] Symptomatic Carotid Endarterectomy Trial (NASCET) method for [...] achievable Electronically signed: Ashu García. Transcribed by: [email or web address], User Resident: Electronically Signed by: ASHU GARCÍA @ 06/27/2020 01:08 PM Normal [facility] D DIMER TESTon 06-27-2020 D-DIMER TEST 0.39 mcg/mL FEU Normal 0.27-0.49 [facility] Comment on [...] thrombotic event. Performed By: #### 4 1000, 58605 #### [facility] [address] [facility]. [address] FERRITINon 06-27-2020 Ferritin [Mass/Vol] 250 ng/mL Normal 24-336 [facility] Comment on above: Order Comment: No: D o not add to previous draw Performed By: #### 4 1000, 54869, 90261 #### [facility] [address] [facility] [place] [address], [facility] HEMOGLOBIN A1Con 06-27-2020 HbA1c (Bld) [Mass fraction] 134 mmol/L Normal [facility] Comment on above: Order Comment: No: D o not add to previous draw Performed By: #### 4 1000, 55401, 07141 #### [facility] [address] [facility] [place] [address], [facility] HbA1c (Bld) [Mass fraction] 6.3 % High 4.0-6.0 [facility] Comment on above: Order Comment: No: D o not add to previous draw Performed By: #### 4 1000, , 27981 #### [facility] [address] [place] [address], [place] LDH BLOODon 06-27-2020 LDH 213 Units/L Normal 140-271 [facility] Comment on above: Order Comment: No: D o not add to previous draw Performed By: #### 4 1000, , 89929 #### [facility] [address] [place] [address], [place] LIVER BATTERYon 06-27-2020 Albumin [Mass/Vol] 3.5 g/dL Normal 3.5-5.7 [facility] Comment on above: Order Comment: No: D o not add to previous draw Performed By: #### 4 1000, , 93706 #### [facility] [address] [place] [address], [place] ALKALINE PHOSPH 62 IU/L Normal 34-104 [facility] Comment on above: Order Comment: No: D o not add to previous draw Performed By: #### 4 1000, , 70535 #### [facility] [address] [place] [address], [place] ALT [Catalytic activity/Vol] 11 U/L Normal 7-52 [facility] Comment on above: Order Comment: No: D o not add to previous draw Performed By: #### 4 1000, , 06589 #### [facility] [address] [place] [address], [place] AST [Catalytic activity/Vol] 10 U/L Low 13-39 [facility] Comment on above: Order Comment: No: D o not add to previous draw Performed By: #### 4 1000, , 37408 #### [facility] [address] [place] [address], [place] Bilirubin [Mass/Vol] 0.5 mg/dL Normal 0.3-1.0 [facility] Comment on above: Order Comment: No: D o not add to previous draw Performed By: #### 4 1000, 11321, 90925 #### [facility] [address] [place] [address], [facility] Bilirubin.direct [Mass/Vol] 0.2 mg/dL Normal 0.0-0.2 [facility] Comment on above: Order Comment: No: D o not add to previous draw Performed By: #### 4 1000, , 97718 #### [facility] [address] [place] [address], [place] Protein [Mass/Vol] 6.0 g/dL Normal 6.0-8.3 [facility] Comment on above: Order Comment: No: D o not add to previous draw Performed By: #### 4 1000, , 03169 #### [facility] [address] [place] [address], [facility] MAGNESIUM BLOODon 06-27-2020 Magnesium [Mass/Vol] 2.3 mg/dL Normal 1.9-2.7 [facility] Comment on above: Order Comment: No: D o not add to previous draw Performed By: #### 4 1000, , 98535 #### [facility] [address] [place] [address], [place] POC GLUCOSE LABon 06-27-2020 Glucose [Mass/Vol] 103 mg/dL High 70-100 [facility] Comment on above: Performed By: #### 4 1000, 27902 #### [facility] [address] [place] [address], [place] Glucose [Mass/Vol] 100 mg/dL Normal 70-100 [facility] Comment on above: Performed By: #### 4 1000, 01011 #### [facility] [address] [place] [address], [place] POTASSIUM BLOODon 06-27-2020 Potassium [Moles/Vol] 4.5 mmol/L Normal 3.5-5.1 [facility] Comment on above: Order Comment: No: D o not add to previous draw Performed By: #### 4 9526 #### [facility] [address] [facility]. [address] PROTHROMBIN TIMEon 202 0 INR Coag (PPP) [Relative time] 1.05 {INR} Normal 0.91-1.16 [facility] Comment on [...] CHEST 1995;[id number]. Performed By: #### 4 1000, 95938 #### [facility] [address] [facility] [place] [address], [facility] PT Coag (PPP) [Time] 13.7 s Normal 12.3-14.8 [facility] Comment on above: Order Comment: No: D o not add to previous draw Result Comment: ALL RESULTS MUST BE INTERPRETED WITH RESPECT TO BLOOD DRAWING ARTIFACT OR DILUTION ERROR OF ANTICOAGULANT AT THE TIME OF SAMPLING. Performed By: #### 4 1000, 64873 #### [facility] [address] [facility] [address] TSH3 WITH REFLEX FT4on 06-27 TSH 3RD GENERATION 0.86 uIU/mL Normal 0.34-5.60 [facility] Comment on above: Performed By: #### 4 1000, 71405, 60004 #### [facility] [address] [facility]. [address] VITAMIN B12on 06-27-2020 Cobalamin (Vitamin B12) [Mass/Vol] 3006 pg/mL High 180-914 [facility] Comment on above: Result Comment: REFE RENCE RANGES: 180-914 pg/mL Normal 145-179 pg/mL Indeterminate <145 pg/mL Deficient Performed By: #### 4 1000, 96119, 68005 #### [facility] [address] PHOSPHORUS BLOODon 0 Phosphate [Mass/Vol] 3.2 mg/dL Normal 2.5-5.0 [facility] Comment on above: Order Comment: No: D o not add to previous draw Performed By: #### 4 1000, 53829 #### [facility] [address] TROPONIN-Ion 06-26-2020 Troponin I.cardiac [Mass/Vol] 0.01 ng/mL Normal 0.00-0.04 [facility] Comment on above: Order Comment: No: D o not add to previous draw Result Comment: REFE RENCE RANGES: 0.00 - 0.04 ng/ml NORMAL 0.05 - 0.50 ng/ml INDETERMINATE > 0.50 ng/ml CONSISTENT WITH AN M.I. Performed By: #### 4 1000, 12800 #### [facility] [address] Vital Signs Date Time Vital Sign Value Performing Clinician Facility 05-24-2025 15:57-0400 Body height 160 cm Gil Angulo DPM FACFAS Work Phone: [facility] 05-24-2025 15:57-0400 Body mass index (BMI) [Ratio] 37.73 kg/m2 Gil Dolce DPM FACFAS Work Phone: [facility] 05-24-2025 15:57-0400 Body weight 96.62 kg Gil Dolce DPM FACFAS Work Phone: [facility] 05-24-2025 15:57-0400 Diastolic blood pressure 74 mm[Hg] Gil Dolce DPM FACFAS Work Phone: [facility] 05-24-2025 15:57-0400 Heart rate 81 /min Gil Dolce DPM FACFAS Work Phone: [facility] 05-24-2025 15:57-0400 Systolic blood pressure 138 mm[Hg] Gil Dolce DPM FACFAS Work Phone: [facility] 03-15-2025 15:11-0400 Body height 160 cm Gil Dolce DPM FACFAS Work Phone: [facility] 03-15-2025 15:11-0400 Body mass index (BMI) [Ratio] 37.73 kg/m2 Gil Dolce DPM FACFAS Work Phone: [facility] 03-15-2025 15:11-0400 Body weight 96.62 kg Gil Dolce DPM FACFAS Work Phone: [facility] 03-15-2025 15:11-0400 Diastolic blood pressure 72 mm[Hg] Gil Dolce DPM FACFAS Work Phone: [facility] 03-15-2025 15:11-0400 Heart rate 77 /min Gil Dolce DPM FACFAS Work Phone: [facility] 03-15-2025 15:11-0400 Systolic blood pressure 146 mm[Hg] Gil Dolce DPM FACFAS Work Phone: [facility] 11-21-2024 15:05-0400 Body mass index (BMI) [Ratio] 32.52 kg/m2 Tyler Draper MD Work Phone: [facility] 11-21-2024 15:05-0400 Body temperature 97.7 [degF] Tyler Draper MD Work Phone: [facility] 11-21-2024 15:05-0400 Body weight 97 kg Tyler Draper MD Work Phone: [facility] 11-21-2024 15:05-0400 Diastolic blood pressure 65 mm[Hg] Tyler Draper MD Work Phone: [facility] 11-21-2024 15:05-0400 Heart rate 83 /min Tyler Draper MD Work Phone: [facility] 11-21-2024 15:05-0400 Respiratory rate 24 /min Tyler Draper MD Work Phone: [facility] 11-21-2024 15:05-0400 SaO2% (BldA) [Mass fraction] 90 % Tyler Draper MD Work Phone: [facility] 11-21-2024 15:05-0400 Systolic blood pressure 122 mm[Hg] Tyler Draper MD Work Phone: [facility] 06-20-2024 08:42-0500 Body height 162.6 cm Connor Biedenbach DO Work Phone: [facility] 06-20-2024 08:42-0500 Body mass index (BMI) [Ratio] 37.76 kg/m2 Connor Biedenbach DO Work Phone: [facility] 06-20-2024 08:42-0500 Body weight 99.79 kg Connor Biedenbach DO Work Phone: [facility] 06-09-2024 09:43-0400 Body height 162.6 cm Connor Biedenbach DO Work Phone: [facility] 06-09-2024 09:43-0400 Body mass index (BMI) [Ratio] 37.76 kg/m2 Connor Biedenbach DO Work Phone: [facility] 06-09-2024 09:43-0400 Body weight 99.79 kg Connor Biedenbach DO Work Phone: [facility] 06-06-2024 13:36-0400 Body mass index (BMI) [Ratio] 33.83 kg/m2 Tyler Draper MD Work Phone: [facility] 06-06-2024 13:36-0400 Body temperature 97 [degF] Tyler Draper MD Work Phone: [facility] 06-06-2024 13:36-0400 Body weight 100.9 kg Tyler Draper MD Work Phone: [facility] 06-06-2024 13:36-0400 Diastolic blood pressure 59 mm[Hg] Tyler Draper MD Work Phone: [facility] 06-06-2024 13:36-0400 Heart rate 74 /min Tyler Draper MD Work Phone: [facility] 06-06-2024 13:36-0400 Respiratory rate 18 /min Tyler Draper MD Work Phone: [facility] 06-06-2024 13:36-0400 SaO2% (BldA) [Mass fraction] 90 % Tyler Draper MD Work Phone: [facility] 06-06-2024 13:36-0400 Systolic blood pressure 109 mm[Hg] Tyler Draper MD Work Phone: [facility] 06-01-2024 16:00-0400 Diastolic blood pressure 64 mm[Hg] MD Pito Patterson Work Phone: [facility] 06-01-2024 16:00-0400 Heart rate 75 /min MD Pito Patterson Work Phone: [facility] 06-01-2024 16:00-0400 Inhaled oxygen concentration 4 % MD Pito Patterson Work Phone: [facility] 06-01-2024 16:00-0400 Respiratory rate 20 /min MD Pito Patterson Work Phone: [facility] 06-01-2024 16:00-0400 SaO2% (BldA) [Mass fraction] 99 % MD Pito Patterson Work Phone: [facility] 06-01-2024 16:00-0400 Systolic blood pressure 121 mm[Hg] MD Pito Patterson Work Phone: [facility] 06-01-2024 13:16-0400 Inhaled oxygen flow rate 4 L/min MD Pito Patterson Work Phone: [facility] 06-01-2024 13:02-0400 Body height 162.56 cm MD Pito Patterson Work Phone: [facility] 06-01-2024 13:02-0400 Body temperature 97.5 [degF] MD Pito Patterson Work Phone: [facility] 06-01-2024 13:02-0400 Body weight 98.88 kg MD Pito Patterson Work Phone: [facility] 05-31-2024 14:31-0400 Body height 162.6 cm Connor Crawley DO Work Phone: [facility] 05-31-2024 14:31-0400 Body mass index (BMI) [Ratio] 37.76 kg/m2 Connor ExaqtWorldamadoJdguanjiacherri DO Work Phone: [facility] 05-31-2024 14:31-0400 Body weight 99.79 kg Connor Cardosoamadodionisiocherri DO Work Phone: [facility] 04-22-2024 09:41-0400 Blood Pressure Location Oni MCKEON [facility] 04-22-2024 09:41-0400 Body temperature 98.6 [degF] Oni MCKEON [facility] 04-22-2024 09:41-0400 Diastolic blood pressure 52 mm[Hg] Oni MCKEON [facility] 04-22-2024 09:41-0400 Heart rate 59 /min Oni MCKEON [facility] 04-22-2024 09:41-0400 Respiratory rate 16 /min Oni MCKEON [facility] 04-22-2024 09:41-0400 Systolic blood pressure 102 mm[Hg] Oni MCKEON [facility] 04-19-2024 14:18-0400 Body height 172.7 cm Tyler Draper MD Work Phone: [facility] 04-19-2024 14:18-0400 Body mass index (BMI) [Ratio] 33.16 kg/m2 Tyler Draper MD Work Phone: [facility] 04-19-2024 14:18-0400 Body temperature 96.8 [degF] Tyler Draper MD Work Phone: [facility] 04-19-2024 14:18-0400 Body weight 98.9 kg Tyler Draper MD Work Phone: [facility] 04-19-2024 14:18-0400 Diastolic blood pressure 66 mm[Hg] Tyler Draper MD Work Phone: [facility] 04-19-2024 14:18-0400 Heart rate 85 /min Tyler Draper MD Work Phone: [facility] 04-19-2024 14:18-0400 Respiratory rate 20 /min Tyler Draper MD Work Phone: [facility] 04-19-2024 14:18-0400 SaO2% (BldA) [Mass fraction] 92 % Tyler Draper MD Work Phone: [facility] 04-19-2024 14:18-0400 Systolic blood pressure 120 mm[Hg] Tyler Draper MD Work Phone: [facility] 03-09-2023 10:50-0400 Blood Pressure Location Oni MCKEON [facility] 03-09-2023 10:50-0400 Diastolic blood pressure 70 mm[Hg] Oni MCKEON [facility] 03-09-2023 10:50-0400 Heart rate 71 /min Oni MCKEON [facility] 03-09-2023 10:50-0400 Respiratory rate 16 /min Oni MCKEON [facility] 03-09-2023 10:50-0400 Systolic blood pressure 109 mm[Hg] Oni MCKEON [facility] 01-09-2022 13:00-0400 Body height 172.7 cm Hosea Herrera MD Work Phone: [facility] 01-09-2022 13:00-0400 Body temperature 97.81 [degF] Hosea Herrera MD Work Phone: [facility] 01-09-2022 13:00-0400 Body weight 100.61 kg Hosea Herrera MD Work Phone: [facility] 01-09-2022 13:00-0400 Diastolic blood pressure 68 mm[Hg] Hosea Herrera MD Work Phone: [facility] 01-09-2022 13:00-0400 Heart rate 93 /min Hosea Herrera MD Work Phone: [facility] 01-09-2022 13:00-0400 Respiratory rate 18 /min Hosea Herrera MD Work Phone: [facility] 01-09-2022 13:00-0400 SaO2% (BldA) [Mass fraction] 93 % Hosea Herrera MD Work Phone: [facility] 01-09-2022 13:00-0400 Systolic blood pressure 95 mm[Hg] Hosea Herrera MD Work Phone: [facility] 11-19-2021 10:19-0400 Blood Pressure Location Romeo Vidal Jr. [facility] 11-19-2021 10:19-0400 Diastolic blood pressure 60 mm[Hg] Romeo Vidal Jr. [facility] 11-19-2021 10:19-0400 Heart rate 80 /min Romeo Vidal Jr. [facility] 11-19-2021 10:19-0400 Respiratory rate 16 /min Romeo Vidal Jr. [facility] 11-19-2021 10:19-0400 Systolic blood pressure 113 mm[Hg] Romeo Vidal Jr. [facility] Encounters Encounter Date Encounter Type Care Provider Facility Start: 02-15-2026 ambulatory Marlys Olivia Facility: [facility] Start: 06-02-2025 End: 06-02-2025 ambulatory [facility] Start: 05-26-2025 End: 05-26-2025 ambulatory TYLER DRAPER Facility:[facility] Start: 05-24-2025 End: 05-24-2025 ambulatory GIL ANGULO Not Available Start: 05-24-2025 End: 05-24-2025 Patient encounter procedure Gil Angulo DPM FACFAS Work Phone: [facility] Comment on above: Onychomycosis (Prima ry Dx); Pain in left toe(s); Pain in right toe(s) Start: 05-24-2025 End: 05-24-2025 Bamboo flowsheet Gil Angulo DPM FACFAS Work Phone: [facility] Start: 05-24-2025 End: 05-24-2025 Bamboo flowsheet Gil Bonillace DPM FACFAS Work Phone: [facility] Start: 05-23-2025 End: 05-23-2025 ambulatory [facility] Start: 04-24-2025 End: 04-24-2025 ambulatory Oni MCKEON Facility:[facility] Start: 04-24-2025 End: 04-24-2025 Patient encounter procedure Oni MCKEON [facility] Start: 03-15-2025 End: 03-15-2025 ambulatory GIL ANGULO Not Available Start: 03-15-2025 End: 03-15-2025 Office outpatient new 30 minutes Gil Angulo DPM FACFAS Work Phone: [facility] Comment on above: Venous insufficiency (chronic) (peripheral) (Primary Dx); Onychomycosis; Pain in left toe(s); Pain in right toe(s) Start: 03-15-2025 End: 03-15-2025 Bamboo flowsheet Gil Bonillace DPM [facility]ACFAS [facility] Start: 03-15-2025 End: 03-15-2025 Bamboo flowsheet Gil Bonillace DPM FACFAS [facility] Start: 03-07-2025 ambulatory Marlys L Corwin Facility: [id number] Start: 02-27-2025 ambulatory [facility] Start: 02-16-2025 End: 02-16-2025 Lab Drop off Marlys L Corwin [facility] Start: 02-16-2025 End: 02-16-2025 ambulatory Marlys L Corwin Facility:[facility] Start: 02-15-2025 End: 02-15-2025 ambulatory Marlys Olivia Facility:[facility] Start: 02-14-2025 ambulatory Pito Patterson Facility :[facility] Start: 02-02-2025 End: 02-02-2025 Bamboo flowsheet Crys Vivar PA Work Phone: [facility] Start: 02-02-2025 End: 02-02-2025 Bamboo flowsheet Crys Northei PA Work Phone: [facility] Start: 02-02-2025 End: 02-02-2025 Office outpatient visit 25 minutes CrysAudioTrip PA Work Phone: [facility] Comment on above: Melanocytic nevus of trunk (Primary Dx); History of SCC (squamous cell carcinoma) of skin; Seborrheic keratosis; Actinic keratosis; Ayala angioma; Other seborrheic dermatitis Start: 02-02-2025 End: 02-02-2025 ambulatory CRYS TAYLOR Not Available Start: 12-21-2024 ambulatory [facility] Start: 11-24-2024 End: 11-24-2024 Follow-up encounter Tyler Draper MD Work Phone: Hematology/Oncology Comment on above: TSH results Start: 11-24-2024 End: 11-24-2024 ambulatory Pito Patterson Facility:[facility] Start: 11-21-2024 End: 11-21-2024 ambulatory TYLER DRAPER Facility:[facility] Start: 11-21-2024 End: 11-21-2024 Office outpatient visit 25 minutes Tyler Draper MD Work Phone: Hematology/Oncology Comment on above: 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); History of prostate cancer; Acquired hypothyroidism Start: 11-15-2024 End: 11-15-2024 ambulatory TYLER DRAPER Facility:[facility] Start: 11-15-2024 End: 11-15-2024 Subsequent hospital visit by physician Arrival Time Radiology Work Phone: [facility] Comment on above: Localized enlarged l ymph nodes [R59.0] Start: 10-21-2024 End: 10-21-2024 ambulatory [facility] Start: 10-17-2024 End: 10-28-2024 ambulatory Pito Patterson Facility:[id number] Start: 10-14-2024 End: 10-14-2024 Telephone encounter Tyler Draper MD Work Phone: Hematology/Oncology Comment on above: Orders Start: 08-25-2024 End: 08-25-2024 ambulatory Pitorocky Patterson Facility:[facility] Start: 08-04-2024 End: 08-04-2024 ambulatory CRYS TAYLOR Not Available Start: 08-04-2024 End: 08-04-2024 Office outpatient visit 15 minutes Crys Taylor PA Work Phone: [facility] Comment on above: Capillary angioma (P rimary Dx); Melanocytic nevus of trunk; Seborrheic keratosis; Actinic keratosis; History of SCC (squamous cell carcinoma) of skin; Lentigo simplex Start: 07-13-2024 End: 07-13-2024 ambulatory MARKUS CERNA [facility] Start: 06-20-2024 End: 06-20-2024 Bamboo flowsheet Connor Crawley DO Work Phone: [facility] [place] Start: 06-20-2024 End: 06-20-2024 Bamboo flowsheet Connor Crawley DO Work Phone: [facility] [place] Start: 06-20-2024 End: 06-20-2024 Office outpatient [...] Start: 06-09-2024 End: 06-09-2024 Bamboo flowsheet Connor Klein Walkeramadodionisiocherri DO Work Phone: [facility] [place] Start: 06-09-2024 End: 06-09-2024 Postop follow up visit related to original px Connor Klein Misbah DO Work Phone: [facility] [place] Comment on above: Wound infection (Lydia apurva Dx); Squamous cell carcinoma of scalp Start: 06-09-2024 End: 06-09-2024 ambulatory CONNOR Klein MISBAH Not Available Start: 06-06-2024 End: 06-06-2024 Patient [...] surgery center MD Pito Patterson Work Phone: [facility] [place] Start: 06-01-2024 End: 06-01-2024 ambulatory MD Pito Patterson Work Phone: [facility] Work Phone: Start: 05-31-2024 End: 05-31-2024 Office outpatient new 60 minutes Connor Klein Misbah DO Work Phone: [facility] Comment on above: 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); 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 Start: 05-31-2024 End: 05-31-2024 ambulatory CONNOR CRAWLEY Not Available Start: 05-31-2024 End: 05-31-2024 Bamboo flowsheet Connor Crawley DO Work Phone: [facility] Start: 05-31-2024 End: 05-31-2024 Bamboo flowsheet Connor Crawley DO Work Phone: [facility] Start: 05-17-2024 End: 05-17-2024 ambulatory Pito Del ToroJeffery Yesenia Facility:[facility] Start: 05-03-2024 End: 05-03-2024 Bamboo flowsheet Celtro PA Work Phone: [facility] Start: 05-03-2024 End: 05-03-2024 Bamboo flowsheet Celtro PA Work Phone: [facility] Start: 05-03-2024 End: 05-03-2024 Office outpatient new 20 minutes Crys salgomed PA Work Phone: [facility] Comment [...] encounter procedure Oni MCKEON [facility] Start: 04-19-2024 End: 04-19-2024 ambulatory Tyler Draper MD Work Phone: Hematology/Oncology Comment on above: 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); History of lymphoma; Lymph node enlargement; Skin lesion of face Start: 04-19-2024 End: 04-19-2024 Patient encounter procedure Tyler Draper MD Work Phone: Hematology/Oncology Start: 04-19-2024 End: 04-26-2024 Telephone encounter Tyler Draper MD Work Phone: [facility] Comment on above: Future Appointment Start: 02-02-2024 Telephone encounter Valerie Wallaec Hematology/Oncology Comment on above: Results Start: 10-19-2023 End: 10-19-2023 Lab Drop off Pito Lety Patterson [facility] Start: 03-31-2023 End: 03-31-2023 Patient encounter procedure Oni Melodie MCKEON [facility] Start: 03-09-2023 End: 03-09-2023 Patient encounter procedure Oni MCKEON [facility] Start: 01-26-2023 End: 01-26-2023 Lab Drop off Marlys Olivia [facility] Start: 08-05-2022 Telephone encounter Aby Hernandez RN Hematology/Oncology Comment on above: Results Start: 07-24-2022 Telephone encounter Tyler cadena MD Work Phone: [facility] Comment on above: Appointment Start: [...] procedure Romeo Vidal Jr. [facility] Start: 09-24-2021 End: 09-25-[address] WILL [...] Evaluation and management of inpatient CRESCENCIO FLETCHER Facility:[facility] Procedures Date Procedure Procedure Detail Performing Clinician Start: 02-02-2025 CRYOTHERAPY SKIN LESION Crys Taylor PA Work Phone: Start: 11-15-2024 Ct thorax w/contrast material Tyler Draper MD Work Phone: Start: 11-15-2024 Blood count complete auto&auto difrntl wbc Arabella Nalini CMA.GRAIN HANDLER Work Phone: Start: 08-04-2024 CRYOTHERAPY SKIN LESION [...] on above: Performed By: #### P SAD ####[facility], [place] [address]InJeffery Nichols Start: 06-28-2020 INSERT PACE. DUAL CH AM IN CHEST SUBCU/FASCIA, OPEN CONNOR DEBI Start: 06-28-2020 INSERTION OF PACEMAK ER LEAD INTO R VENTRICLE, PERC APPROACH CONNOR DEBI Start: 06-28-2020 INSERTION OF PACEMAK ER LEAD INTO RIGHT ATRIUM, PERC APPROACH CONNOR FONTAINECKO Start: 06-27-2020 INTRODUCTION OF OTHE R GAS INTO RESP TRACT, VIA OPENING MYA MATTHEWSUR Start: 08-17-2019 Cardiac pacemaker, d evice (physical [...] DTaP,Tdap,Td Vaccine (2 - Td or Tdap) [facility] Start: 11-16-2027 Diabetes Screening Diabetes Screening [facility] Start: 04-19-2027 Diabetes Screening Diabetes Screening [facility] Start: 01-20-2027 Diabetes Screening Diabetes Screening [facility] Start: 08-03-2025 End: 08-03-2025 Patient encounter procedure [facility] Start: 08-02-2025 End: 08-02-2025 Patient encounter procedure 08/02/2025 3:00 PM EST Procedure Visit [facility] [address] [place] [id number] Gil Angulo, DPM FACFAS [address] [place] [address] [facility] Start: 07-18-2025 DIABETES SCREEN DIABETES SCREEN [facility] Start: 05-29-2025 End: 05-29-2025 Follow-up encounter 05/29/2025 3:00 PM EDT Visit (SP) Office Hematology/Oncology [address] [place] [address] Ana M Schneider APRN.GRAIN HANDLER [address] [place] [address] 6 month follow up / BRM pt Hematology/Oncology Comment on above: 6 month follow up / BRM pt Start: 05-24-2025 End: 05-24-2025 Patient encounter procedure 05/24/2025 3:10 PM EDT Procedure Visit [facility] [address] [facility] [place] [id number] Gil Angulo, DPM FACFAS [address] [facility] [place] [address] [facility] Start: 05-22-2025 End: 05-22-2025 Patient encounter procedure 05/22/2025 3:30 PM EDT Office Visit [facility] [address] [place] [address] 6 month lab [facility] Comment on above: 6 month lab Start: 04-17-2025 Influenza vaccination Influenza Vaccine (#1) [facility] Start: 02-02-2025 End: 02-02-2025 Patient encounter procedure [facility] Comment on above: Arrived Start: 01-09-2025 DIABETES SCREEN DIABETES SCREEN [facility] Start: 11-21-2024 End: 11-21-2024 Follow-up encounter 11/21/2024 3:20 PM EDT Visit (SP) Office Hematology/Oncology [address] [place] [address] Tyler Draper MD [address] [place] [address] 6 Month follow up with lab Hematology/Oncology Comment on above: 6 Month follow up with lab Start: 11-21-2024 End: 11-21-2024 Patient encounter procedure 11/21/2024 3:00 PM EDT Office Visit [facility] [address] [address] 6 Month follow up with lab [facility] Comment on above: 6 Month follow up with lab Start: 11-15-2024 End: 02-14-2025 CBC W Auto Differential panel - Blood COMPLETE BLOOD COUNT AND DIFFERENTIAL Lab Routine Diffuse large B-cell lymphoma, unspecified body region (HCC) Expected: 11/15/2024 (Approximate), Expires: 02/14/2025 [facility] Comment on above: Expected: 11/15/2024 (Approximate), Expi res: 02/14/2025 Start: 11-15-2024 End: 02-14-2025 Comprehensive metabolic 2000 panel - Serum or Plasma COMPREHENSIVE METABOLIC PANEL Lab Routine Diffuse large B-cell lymphoma, unspecified body region (HCC) Expected: 11/15/2024 (Approximate), Expires: 02/14/[address] [facility] Work Phone: Comment on above: Expected: 11/15/2024 (Approximate), Expi res: 02/14/2025 Start: 11-15-2024 End: 07-10-2025 CT Chest W contrast IV CT CHEST W IVCON Radiology Routine Localized enlarged lymph nodes Expected: 11/15/2024, Expires: 07/10/[address] [facility] Work Phone: Comment on above: Expected: 11/15/2024, Expires: Start: 11-15-2024 End: 02-14-2025 MONOCLONAL PROTEIN, SERUM (BLOOD) [facility] Comment on above: Expected: 11/15/2024 (Approximate), Expi res: 02/14/2025 Start: 11-15-2024 End: 02-14-2025 PROTEIN ELECTROPHORESIS SERUM W/INTERP [facility] Comment on above: Expected: 11/15/2024 (Approximate), Expi res: 02/14/2025 Start: 11-15-2024 End: 11-15-2024 Patient encounter procedure Radiology Pet CT Comment on above: CT Chest with IVC Start: 11-09-2024 Covid-19 Vaccine (7 - Pfizer risk ) Covid-19 Vaccine (7 - Pfizer risk ) [facility] Start: 08-17-2024 Advance Directive Discussion Advance Directive Discussion [facility] Start: 08-04-2024 End: 08-04-2024 Patient encounter procedure 08/04/2024 1:00 PM EST Office Visit [facility] [address] [place] [id number] Crys Taylor PA [address] [place] [phone] [facility] Start: 07-07-2024 Covid-19 Vaccine () Covid-19 Vaccine () [facility] Start: 06-28-2024 End: 06-28-2024 Patient encounter procedure 06/28/2024 1:00 PM EST Office Visit [facility] [address] [place] [phone] Chiki Malone MD [address] [place] [address] [facility] Start: 06-20-2024 End: 06-20-2024 Patient encounter procedure 06/20/2024 8:45 AM EST Office Visit [facility] [place] [address] [place] [phone] Connor Crawley DO [address] [place] [address] Arrived [facility] [place] Comment on above: Arrived Start: 06-17-2024 End: 06-17-2024 Patient encounter procedure 06/17/2024 1:15 PM EDT Office Visit [facility] [place] [address] [place] [phone] Connor Crawley, DO [address] [place] [address] [facility] [place] Start: 06-09-2024 End: 06-09-2024 Patient encounter procedure [facility] [place] Comment on above: Arrived Start: 06-06-2024 End: 06-06-2024 Follow-up encounter 06/06/2024 1:45 PM EDT Visit (SP) Office Hematology/Oncology [address] [place] [address] Tyler Draper MD [address] [place] [address] 6 week follow up Hematology/Oncology Comment on above: 6 week follow up Start: 06-06-2024 End: 06-06-2024 Patient encounter procedure 06/06/2024 1:30 PM EDT Office Visit [facility] [address] [place] [address] 6 week follow up [facility] Comment on above: 6 week follow up Start: 06-01-2024 [facility] Start: 05-31-2024 End: 05-31-2024 Patient encounter procedure 05/31/2024 2:30 PM EDT Office Visit [facility] [address] [place] [phone] Connor Crawley, DO [address] [place] [address] 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 SOFIAErnie YOUS[facility] [place] Comment on above: Squamous cell cancer of skin of left vibha ek Start: 05-03-2024 End: 05-03-2024 Patient encounter procedure 05/03/2024 11:00 AM EDT Office Visit [facility] [address] [place] [address] Crys Taylor PA [address] [place] [address] Arrived [facility] Comment on above: Arrived Start: 04-29-2024 End: 04-29-2024 Patient encounter procedure 04/29/2024 1:30 PM EDT Appointment Radiology Pet CT [address] [place] [address] [address] Comment on above: Pet scan Start: 04-19-2024 End: 04-19-2024 ambulatory 04/19/2024 2:30 PM EDT Visit (SP) Office Hematology/Oncology [address] [place] [address] Tyler Draper MD [address] [place] [address] 6 month lab Hematology/Oncology Comment on above: 6 month lab Start: 04-19-2024 End: 04-19-2024 Patient encounter procedure 04/19/2024 2:15 PM EDT Office Visit [facility] [address] [place] [address] 6 month lab [facility] Comment on above: 6 month lab Start: 04-19-2024 End: 07-19-2024 MONOCLONAL PROTEIN, SERUM (BLOOD) [facility] Comment on above: Expected: 04/19/2024, Expires: 4 Start: 04-19-2024 End: 07-19-2024 PROT ELECT SERUM WITH CARSON AND INTERP [facility] Work Phone: Comment on above: Expected: 04/19/2024, Expires: 4 Start: 04-17-2024 Covid-19 Vaccine () Covid-19 Vaccine () [facility] Start: 04-17-2024 Influenza vaccination Influenza Vaccine (#1) [facility] Start: 08-27-2023 Covid-19 Vaccine () Covid-19 Vaccine () [facility] Start: 08-17-2023 Advance Directive Discussion Advance Directive Discussion [facility] Start: 08-17-2023 Behavioral Health Screening Behavioral Health Screening [facility] Start: 01-09-2023 Adult depression screening assessment DEPRESSION SCREENING [facility] Start: 07-18-2022 End: 09-17-2022 CBC panel - Blood by Automated count CBC Lab Routine MGUS (monoclonal gammopathy of unknown significance) Expected: 07/18/2022 (Approximate), Expires: 09/17/[address] [facility] Work Phone: Comment on above: Expected: 07/18/2022 (Approximate), Expi res: 09/17/2022 Start: 07-18-2022 End: 09-17-2022 Comprehensive metabolic 2000 panel - Serum or Plasma COMP METABOLIC PANEL Lab Routine MGUS (monoclonal gammopathy of unknown significance) Expected: 07/18/2022 (Approximate), Expires: 09/17/[address] [facility] Work Phone: Comment on above: Expected: 07/18/2022 (Approximate), Expi res: 09/17/2022 Start: 07-18-2022 End: 09-17-2022 MONOCLONAL PROTEIN, SERUM (BLOOD) MONOCLONAL PROTEIN, SERUM (BLOOD) Lab Routine MGUS (monoclonal gammopathy of unknown significance) Expected: 07/18/2022 (Approximate), Expires: 09/17/[address] [facility] Work Phone: Comment on above: Expected: 07/18/2022 (Approximate), Expi res: 09/17/2022 Start: 07-18-2022 End: 09-17-2022 PROTEIN ELECTROPHORESIS SERUM W/INTERP PROTEIN ELECTROPHORESIS SERUM W/INTERP Lab Routine MGUS (monoclonal gammopathy of unknown significance) Expected: 07/18/2022 (Approximate), Expires: 09/17/[address] [facility] Work Phone: Comment on above: Expected: 07/18/2022 (Approximate), Expi res: 09/17/2022 Start: 05-06-2022 COVID-19 VACCINE (5 - Booster for Pfizer series) COVID-19 VACCINE (5 - Booster for Pfizer series) [facility] Start: 04-17-2022 Influenza vaccination INFLUENZA (#1) [facility] Start: 09-25-2021 COVID-19 VACCINE (4 - Booster for Pfizer series) COVID-19 VACCINE (4 - Booster for Pfizer series) [facility] Start: 08-17-2021 ADVANCE DIRECTIVE DISCUSSION ADVANCE DIRECTIVE DISCUSSION [facility] Start: 08-17-2021 DEPRESSION ASSESSMENT DEPRESSION ASSESSMENT [facility] Start: 2007 RSV Vaccine (1 - 1-dose 60+ series) RSV Vaccine (1 - 1-dose 60+ series) [facility] Start: 1997 SHINGRIX VACCINE (1 of 2) SHINGRIX VACCINE (1 of 2) [facility] Start: 1992 COLOGUARD (FIT-DNA) COLOGUARD (FIT-DNA) [facility] Start: 1992 Colonoscopy COLONOSCOPY [facility] Start: 1992 COLORECTAL CANCER SCREENING COLORECTAL CANCER SCREENING [facility] Start: [address] COLONOGRAPHY [facility] Start: 1992 FECAL OCCULT BLOOD FECAL OCCULT BLOOD [facility] Start: 1992 SIGMOIDOSCOPY SIGMOIDOSCOPY [facility] Start: 1982 LIPID SCREEN LIPID SCREEN [facility] Start: 1966 SHINGRIX VACCINE (1 of 2) SHINGRIX VACCINE (1 of 2) [facility] Start: 1966 Urine microalbumin profile DTAP,TDAP,TD (1 - Tdap) [facility] Start: 1965 Anxiety Screening Anxiety Screening [facility] Start: 1965 Depression Screening Depression Screening [facility] Start: 1965 HEPATITIS C SCREENING HEPATITIS C SCREENING [facility] Start: 1965 Hepatitis C screening Hepatitis C Screening [facility] Start: 1947 ABDOMINAL AORTIC ANEURYSM SCREENING ABDOMINAL AORTIC ANEURYSM SCREENING [facility] Start: 1947 Medicare Annual Wellness (AWV) Medicare Annual Wellness (AWV) [facility] CBC W Auto Different ial panel - Blood CBC + DIFF Lab Routine B12 deficiency Diffuse large B-cell lymphoma, unspecified body region (HCC) 01/09/2022 1:40 PM EDT [facility] Work Phone: Dermatopathology exam Dermatopat hology exam Pathology and Cytology Timed Neoplasm of unspecified behavior of bone, soft tissue, and skin Release Upon Ordering for 1 Occurrences starting 05/03/2024 [facility] Work Phone: Comment on above: Release Upon Ordering for 1 Occurrences starting 05/03/2024 End: 11-15-2024 IMMUNOFIXATION SCREEN, SERUM [facility] Comment on above: Once for 1 Occurrences starting 11/16/19 until 11/15/2024 End: 11-15-2024 IMMUNOGLOBULINS,IGG,IGA,I GM [facility] Comment on above: Once for 1 Occurrences starting 11/16/19 until 11/15/2024 End: 11-15-2024 KAPPA/ARDON,FREE,SER [facility] Comment on above: Once for 1 Occurrences starting 11/16/19 until 11/15/2024 Patient Education Know your Meds [facility] Work Phone: Patient referral [facility] Work Phone: End: 05-19-2025 PET+CT Guidance for localization of tumor of Skull base to mid-thigh-- W 18F-FDG IV NM PET/CT SKULL-THIGH SUBSEQUENT Radiology Routine History of lymphoma Lymph node enlargement 1 Occurrences starting 04/19/2024 until 05/19/2025 [facility] Comment on above: 1 Occurrences starting 04/19/2024 until 05/19/2025 PET+CT Guidance for localization of tumor of Skull base to mid-thigh-- W 18F-FDG IV NM PET/CT SKULL-THIGH SUBSEQUENT Radiology Routine History of lymphoma Lymph node enlargement 04/29/2024 3:28 PM EDT [facility] Work Phone: End: 11-15-2024 PROTEIN ELECTROPHORESIS SERUM (P) [facility] Work Phone: Comment on above: Once for 1 Occurrences starting 11/16/19 until 11/15/2024 [facility] Immunizations Immunization Date Immunization Notes Care Provider Eric garcia 05-12-2024 influenza, high dose seasonal, preservative-free Connor Crawley DO Work Phone: [facility] 05-12-2024 SARS-CoV-2 mRNA (tozinameran 5y-11y) vaccine Marlys Corwin [facility] Comment on above: Result Comment: COvi d 19 mRNA, LN-S pfizer trus sucrose 05-12-2024 influenza virus vaccine, unspecified formulation Connor Crawley DO Work Phone: [facility] 03-21-2024 canakinumab Oni MCKEON [facility] Comment on above: Result Comment: RSV 03-21-2024 respiratory syncytia l virus (RSV) vaccine, adjuvanted (AREXVY) Tyler Draper MD Work Phone: [facility] 03-21-2024 RSV vaccine preF3, recombinant Marlys Corwin [facility] 07-02-2023 SARS-CoV-2 mRNA (tozinameran 5y-11y) vaccine Pito Patterson [facility] Comment on above: Result Comment: covi d 19 eneida sucrose pfizer 05-11-2023 influenza, high dose seasonal, preservative-free Pito Patterson [facility] 05-11-2023 influenza virus vaccine, unspecified formulation Tyler Draper MD Work Phone: [facility] 03-11-2022 SARS-CoV-2 mRNA (olxplirjcrw-kbix-hvbgy se) vaccine Marlys Corwin [facility] 06-25-2021 SARS-CoV-2 (COVID-19 ) mRNA BNT-162b2 vax Marlys Corwin [facility] 05-24-2021 influenza (HD-IIV4) vaccine, age 65+ yr, high dose, quadrivalent, PF (FLUZONE HIGH-DOSE) Tyler Draper MD Work Phone: [facility] 05-24-2021 influenza virus vaccine, unspecified formulation Marlys Corwin [facility] 11-13-2020 COVID-19 vaccine, ag e 12+ yr (PFIZER-BIONTECH - PURPLE TOP) Hosea Herrera MD Work Phone: [facility] 10-22-2020 COVID-19 vaccine, ag e 12+ yr (PFIZER-BIONTECH - PURPLE TOP) Hosea Herrera MD Work Phone: [facility] 07-24-2020 zoster vaccine recombinant Marlys Corwin [facility] 07-22-2020 zoster vaccine recombinant Tyler Draper MD Work Phone: [facility] 05-09-2020 influenza (HD-IIV4) vaccine, age 65+ yr, high dose, quadrivalent, PF (FLUZONE HIGH-DOSE) Tyler Draper MD Work Phone: [facility] 05-09-2020 influenza virus vaccine, unspecified formulation Marlys Corwin [facility] 05-09-2020 tetanus toxoid, redu juvencio diphtheria toxoid, and acellular pertussis vaccine, adsorbed Marlys Corwin [facility] 05-09-2020 zoster vaccine recombinant Marlys Corwin [facility] 04-16-2019 influenza virus vaccine, unspecified formulation Marlys Corwin [facility] 04-16-2019 Seasonal trivalent influenza vaccine, adjuvanted, preservative free Tyler Draper MD Work Phone: [facility] 05-25-2018 influenza nasal, unspecified formulation Tyler Draper MD Work Phone: [facility] 05-25-2018 influenza virus vaccine, unspecified formulation Marlys Corwin [facility] 05-25-2018 influenza, injectabl e, quadrivalent, preservative free Hosea Herrera MD Work Phone: [facility] 05-25-2018 pneumococcal polysaccharide vaccine, 23 valent Hosea Herrera MD Work Phone: [facility] 04-26-2018 influenza nasal, unspecified formulation Tyler Draper MD Work Phone: [facility] 04-26-2018 influenza virus vaccine, unspecified formulation Marlys Corwin [facility] 04-26-2018 influenza, high dose seasonal, preservative-free Hosea Herrera MD Work Phone: [facility] 04-26-2018 pneumococcal polysaccharide vaccine, 23 valent Hosea Herrera MD Work Phone: [facility] 08-04-2017 influenza nasal, unspecified formulation Tyler Draper MD Work Phone: [facility] 08-04-2017 influenza virus vaccine, unspecified formulation Marlysajith Appiahab [facility] 08-04-2017 influenza, high dose seasonal, preservative-free Hosea Herrera MD Work Phone: [facility] 08-04-2017 pneumococcal conjuga te vaccine, 13 valent Hosea Herrera MD Work Phone: [facility] influenza vaccine qs 240 mcg, Patients 65 years and older,, PF, (FLUZONE HIGHDOSE QUAD 20-21 PF) 240 mcg/0.7 mL injection Hosea Herrera MD Work Phone: [facility] Comment on above: Fluzone High-Dose Qu ad 2020- (PF) 240 mcg/0.7 mL IM syringe PHARMACY ADMINISTERED influenza vaccine qs 240 mcg, Patients 65 years and older,, PF, (FLUZONE HIGHDOSE QUAD 20-21 PF) 240 mcg/0.7 mL injection Tyler Draper MD Work Phone: [facility] Comment on above: Fluzone High-Dose Qu ad 2020-21 (PF) 240 mcg/0.7 mL IM syringe PHARMACY ADMINISTERED influenza vaccine qs 240 mcg, Patients 65 years and older,, PF, (FLUZONE HIGHDOSE QUAD 20-21 PF) 240 mcg/0.7 mL injection Valerie Mayes RN [facility] influenza vaccine qs 240 mcg, Patients 65 years and older,, PF, (FLUZONE HIGHDOSE QUAD 20-21 PF) 240 mcg/0.7 mL injection Tyler Draper MD Work Phone: [facility] influenza vaccine qs 240 mcg, Patients 65 years and older,, PF, (FLUZONE HIGHDOSE QUAD 20-21 PF) 240 mcg/0.7 mL injection Tyler Draper MD Work Phone: [facility] influenza vaccine qs 240 mcg, Patients 65 years and older,, PF, (FLUZONE HIGHDOSE QUAD 20-21 PF) 240 mcg/0.7 mL injection Arrival Radiology Work Phone: [facility] Payers Date Payer Category Payer Medicare (Managed Care) 1.2. [id number] 2022 Private Health Insurance [id number] 2014 Medicare AETNA MEDICARE A ETNA MEDICARE PPO [id number] 2014-Present [phone] [address] [place] [address] PPO [id number]. [id number] 2012 Medicare [id number]. [id number] 2012 Medicare [id number] 1959 Medicare [id number] 1959 Private Health Insurance [facility] [id number] Self-pay 1947 Unknown [id number] 2.16.840.1.148471.3.579.2. 647 1947 Unknown [id number] 2.16.840.1.952829.3.579.2. 593 1947 Unknown [id number] 2.16.840.1.890819.3.579.2. 593 1947 Unknown [id number] 2.16.840.1.370668.3.579.2. 593 1947 Unknown [id number] 2.16.840.1.761062.3.579.2. 593 1947 Unknown [id number] 2.16.840.1.607209.3.579.2. 593 1947 Unknown [id number] 2.16.840.1.090921.3.579.2. 593 1947 Unknown [id number] 2.16.840.1.425708.3.579.2. 593 1947 Unknown [id number] 2.16.840.1.293742.3.579.2. 593 1947 Unknown [id number] 2.16.840.1.211340.3.579.2. 593 1947 Unknown [id number] 2.16.840.1.401259.3.579.2. 593 1947 Unknown [id number] 2.16.840.1.724954.3.579.2. 593 1947 Unknown [id number] 2.16.840.1.146297.3.579.2. 593 1947 Unknown [id number] 2.16.840.1.253343.3.579.2. 593 1947 Unknown [id number] 2.16.840.1.466925.3.579.2. 593 1947 Unknown [id number] 2.16.840.1.347984.3.579.2. 593 1947 Unknown [id number] 2.16.840.1.445540.3.579.2. 593 1947 Unknown [id number] 2.16.840.1.886252.3.579.2. 593 1947 Unknown [id number] 2.16.840.1.956079.3.579.2. 593 1947 Unknown [id number] 2.16.840.1.541838.3.579.2. 593 1947 Unknown [id number] 2..840.1.964525.3.579.2. 593 1947 Unknown [id number] 2.16.840.1.898386.3.579.2. 72 1947 Unknown [id number] 2.16.840.1.842866.3.579.2. 72 1947 Unknown [id number] 2.16.840.1.271507.3.579.2. 72 1947 Unknown [id number] 2.840.1.422001.3.579.2. 727 1947 Unknown [id number] 2.16.840.1.899984.3.579.2. 72 1947 Unknown [id number] 2.16.840.1.068840.3.579.2. 727 1947 Unknown [id number] 2.16.840.1.280357.3.579.2. 72 1947 Unknown [id number] 2.16.840.1.397982.3.579.2. 727 1947 Unknown [id number] 2.16.840.1.614367.3.579.2. 727 1947 Unknown [id number] 2.16.840.1.769427.3.579.2. 727 1947 Unknown [id number] 2.16.840.1.938427.3.579.2. 727 1947 Unknown [id number] 2.16.840.1.962202.3.579.2. 727 1947 Unknown [id number] 2.16.840.1.991613.3.579.2. 1259 1947 Unknown [id number] 2.16.840.1.235689.3.579.2. 1258 1947 Unknown [id number] 2.16.840.1.959917.3.579.2. 1258 1947 Unknown [id number] 2.16840.1.460724.3.579.2. 1258 1947 Unknown [id number] 2.16.840.1.986510.3.579.2. 1258 1947 Unknown [id number] 2.16.840.1.455182.3.579.2. 1258 1947 Unknown [id number] 2.16.840.1.001293.3.579.2. 1259 Medicare Medicare Outpatient [id number] Unknown [id number] 2.840.1.147749.3.579.2. 593 Unknown Karl BC/BS [id number] Unknown [id number] 2.840.1.930032.3.579.2. 531 Social History Date Type Detail Facility Start: 11-19-2021 End: 05-03-2024 Tobacco smoking status Ex-smoker (finding) [facility] Comment on above: Patient states he sm oked cigarettes, 1 PPD from about 22 years old until about 42 years old. denies use. Former s moker. Quit 1987. Start: 07-30-2023 End: 05-24-2025 Sex Assigned At Male [facility] Start: 09-06-1968 End: 09-06-1988 History of tobacco use Current smoker [facility] Start: 09-06-2012 End: 05-24-2025 Cigarettes smoked current (pack per day) - Reported 1 [facility] Start: 09-06-2012 End: 05-03-2024 Tobacco use and exposure Smokeless tobacco non-user [facility] Start: 01-09-2022 End: 11-21-2024 Alcohol intake Current drinker of alcohol (finding) [facility] Start: 04-05-2019 History SDOH Alcohol Comment rare [facility] Start: 1945 Sex Assigned At Not on file [facility] Start: 12-30-2021 End: 01-09-2022 Exposure to SARS-CoV-2 (event) Not sure [facility] Start: 09-06-1968 End: 09-06-1988 History of tobacco use Cigarette Smoker [facility] History of tobacco use Passive smoker [facility] Tobacco smoking status Never [facility] [place] Comment on above: Patient states he sm oked cigarettes, 1 PPD from about 22 years old until about 42 years old. denies use. Former s moker. Quit 1987. Start: 05-03-2024 End: 05-24-2025 Alcoholic beverage intake Defer [facility] Start: 1945 Sex Assigned At Male F [facility] Tobacco smoking stat us NHIS Tobacco smoking consumption unknown [facility] Sexual Orientation [facility] Start: 11-01-2016 Sex Male (finding) [facility] NEGATED: Highlighted rowStart: NINF History of tobacco use Passive smoker [facility] Goals Date Patient Goal Desired Activity /State Functional Status Date Assessment Result Facility 04-22-2024 Functional Status N/A [facility] 03-09-2023 Functional Status N/A [facility] 02-19-2015 Are you deaf, or do you have serious difficulty hearing No 02/19/2015 11:13 AM Otilia Mejía [facility] 02-19-2015 Are you blind, or do you have serious difficulty seeing, even when wearing glasses No 02/19/2015 11:13 AM Otilia Mejía [facility] 02-19-2015 Do you have serious difficulty walking or climbing stairs No 02/19/2015 11:13 AM Otilia Mejía [facility] 02-19-2015 Do you have difficul ty dressing or bathing Yes 02/19/2015 11:13 AM Otilia Mejía [facility] 02-20-2014 Because of a physica l, mental, or emotional condition, do you have difficulty doing errands alone such as visiting a physician's office or shopping No 02/20/2014 11:24 AM Otilia Mejía [facility] Mental Status Date Assessment Result Facility 02-19-2015 Because of a physica l, mental, or emotional condition, do you have serious difficulty concentrating, remembering, or making decisions No 02/19/2015 11:13 AM Otilia Mejía [facility] Clinical Notes 11-19-2021 to 06-02-2025 Gil Angulo DPM [facility] - 05/24/2025 3:10 PM Jose Roberto Angulo DPM [facility] - 03/15/2025 2:30 PM MARY Haynes - 02/02/2025 1:20 PM Yolanda Cunha MA - 11/21/2024 3:08 PM EDT Note Date & Type Note Facility 06-02-2025 Note [place] [facility] Subjective Chiki Juarez is a 80 y.o. year old male patient being seen for a 6 month follow up appointment. Recent pacemaker check. Patient was in [facility] in February for pneumonia. Labs, CT recently done by Patient denies chest pain. Patient complains of SOB/CANO, fatigue, occasional leg swelling., bruising/bleeding/discoloration. Patient Active Problem List Diagnosis Complete AV [...] pain Cystic fibrosis carrier Former tobacco use group home current use of inhaled steroid Lumbar radiculopathy Prolonged QT interval Uncomplicated severe persistent asthma (CMS/HCC) Family History Problem Relation Name Age of Onset Stroke Father Social History Tobacco Use Smoking status: Former Types: Cigarettes Substance Use Topics Alcohol use: Never Drug use: Never GILDA Chiki is seen in follow-up. He is a 80-year-old man with prior history of COPD and is currently followed at [facility]. He takes multiple inhalers. In June 2020 [...] of breath. He recently was seen at [facility] pulmonary and was recommended to follow-up with [...] daily. He was seen by cardiology at [facility] who also agreed that the shortness of breath is not of a cardiac etiology. His radiology transporter was treating him with steroids. He also underwent walk test in September 2023 during which his oxygen dropped significantly. He previously underwent further evaluation at [facility] pulmonology and his follow-up PFTs showed improvement. He also had upper and lower extremity duplex venous ultrasounds and VQ scan of the lungs in January 2024 which were negative. He was admitted to the hospital at [place] on 10/11/2024 due to COPD exacerbation and influenza A. He was again admitted to the [facility] in February 2025 due to pneumonia. He was treated accordingly. Today he reports that he is feeling better but continues to have shortness of (more content not included)... [facility] 05-26-2025 Note HNO ID: [id number] Author: ANA M SCHNEIDER APRN.LIDA Service: ? Author Type: Nurse Practitioner Type: [...] abnormal blood work was identified by his radiology transporter, Dr. Berg, during evaluation for back issues. [...] his heart, leading to pacemaker placement in [place]. The pacemaker was checked earlier this week [...] other nasal pr (more content not included)... 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 They were painful to palpation 03722 on the right [id number] on the left. VASC: DP /PT were nonpalpable bilateral. Capillary refill time < 3 seconds Digits 1-5 bilateral NEURO: Lindsay Jerson 5.07 monofilament was intact B/L. Vibratory [...] 10. RUTH Garcia documented in this encounter [facility] 04-24-2025 Hospital Discharge instructions Patient Education [...] treatment? Where to find more information The [place] [employer]: www.cancer.org [place] [employer]: www.auanet.org Contact a health care [...] provider. Document Revised: 01/27/2022 Document Reviewed: 01/27/2022 [employer] Patient Education 2023 [employer]. Follow Up Care 04/22/2024 10:40:13 With:MIKE VENTURA, Oni Sewell, URL Address: [address] [place] [address] [place] [address] When: only if needed [facility] 04-24-2025 Note Patient Education Oncology Prostate Cancer [...] male who is Black or is of [place] or sub-Saharan descent. In general, screening is [...] Where to find more information ??? The [place] [employer]: www.cancer.org ??? [place] [employer]: www.auanet.org Contact a health care [...] The prostate gland (more content not included)... [facility] 03-15-2025 History of Present illness Narrative [...] hypertension (HCC) 07/02/2023 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[facility]-HCC) 07/02/2023 Recurrent pneumonia 07/17/2021 Obesity due to excess calories 05/31/2024 Severe obesity (BMI 35.0-39.9) with comorbidity ([facility]) 08/03/2020 Ventral hernia 05/21/2023 Wheezing 07/02/2023 [...] subungual debris. They were painful to palpation [id number] on the right 96276 on the left. VASC: DP /PT were nonpalpable bilateral. Capillary refill time < 3 seconds Digits 1-5 bilateral NEURO: Lindsay Jerson 5.07 monofilament was intact B/L. Vibratory [...] reexamination. RUTH Garcia documented in this encounter [facility] 02-15-2025 Note Patient Education Endocrinology Hypothyroidism [...] Follow these instructions at home: ??? Take [id number] and prescription medicines only as told by [...] provider. Document Revised: 08/05/2022 Document Reviewed: 08/05/2022 [employer] Patient Education ? 2023 [employer]ly. Screening for Type 2 Diabetes A screening test for type 2 diabetes (type 2 diabetes mellitus) is a blood test to measure your blood sugar (glucose) level. This test is done to check for early signs of diabetes, before you develop symptoms (more content not included)... [facility] 02-02-2025 History of Present illness Narrative [...] limited to risks of scarring, darker or top and trim worker pigmentary changes, recurrence, incomplete removal and infection. [...] Visit: 6 months documented in this encounter [facility] 11-24-2024 Telephone encounter Note Pt notified of BRM message below. She is agreeable to follow up with PCP, to discuss US. She denies any questions, needs or concerns at this time. Labs faxed to PCP, Dr Yesenia Mayes RN [facility] 11-24-2024 Miscellaneous Notes Pt notified of BRM message below. She is agreeable to follow up with PCP, to discuss US. She denies any questions, needs or concerns at this time. Labs faxed to PCP, Dr Yesenia Mayes, RN documented in this encounter [facility] 11-21-2024 Note HNO ID: [id number] Author: YOLANDA MONTAGUE MA Service: ? Author Type: Manufacturing Quality Inspector Type: Progress Notes Filed: 11/23/2024 09:37 Note Text: Pt very short of breath. Has oxygen at home. But declined using our oxygen.Yolanda Montague MA [facility] 11-21-2024 History of Present illness Narrative [...] influenza A infection and was hospitalized at [facility]. Apparently his symptoms were severe enough that [...] PATHOLOGY: 06/01/2024 Skin resection ([facility] A. Skin lesion from left cheek: Recent [...] active disease. 02/01/2024 Bilateral lower extremity Doppscan ([facility]) The RIGHT lower extremity was imaged, assessed [...] Trans x 2.56 cm Sagittal. 12/31/2023 CXR ([facility]) IMPRESSION: 1. No significant interval change and no new or worsening airspace disease. No pleural effusion or pneumothorax. 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 2. Stable cardiomediastinal silhouette. 3. Left chest wall CIED with leads in the right atrium and right ventricle. 4. Unchanged compression deformity in the mid thoracic spine. 09/24/2021 Skeletal bone survey ([facility]) No lytic lesions suggestive of multiple myeloma [...] PCP and pulmonary (Dr. Mayra Berg at [facility]). 6. History of hypothyroidism The patient has [...] Dr. Jb Patterson, PCP Dr. Mayra Berg, Block Setter Gypsum at [facility] documented in this encounter [facility] 11-19-2024 Note HNO ID: [id number] Author: TYLER DRAPER MD Service: ? Author [...] influenza A infection and was hospitalized at [facility]. Apparently his symptoms were severe enough that [...] Ears: negative findings (more content not included)... [facility] 11-15-2024 History of Present illness Narrative [...] PATIENT PRESENTS WITH AN IMPLANTABLE OR ATTACHED ASSOCIATE PROFESSOR OF COUNSELING: No RADIOLOGY DEPARTMENT: CT; Exam(s) Completed: Chest PERIPHERAL IV DATA: Site assessment: Clean,Dry and Intact, Site disposition Discontinued SIGNED BY: RT Sonya(R) November 15, 2024 3:18 PM documented in this encounter [facility] 11-15-2024 Note HNO ID: [id number] Author: MEG ASHRAF RN Service: ? Author [...] DATE: November 15, 2024 TIME: 2:32 PM [facility] 11-15-2024 Note HNO ID: [id number] Author: COREY DONALDSON RT(R) Service: ? Author [...] PATIENT PRESENTS WITH AN IMPLANTABLE OR ATTACHED ASSOCIATE PROFESSOR OF COUNSELING: No RADIOLOGY DEPARTMENT: CT; Exam(s) Completed: Chest PERIPHERAL IV DATA: Site assessment: Clean,Dry and Intact, Site disposition Discontinued SIGNED BY: RT Sonya(R) November 15, 2024 3:18 PM [facility] 10-21-2024 Note [facility] Subjective Chiki Juarez is a 79 y.o. year old male patient being seen for follow up [facility]. EKG from the ED was questionable [...] of COPD and is currently followed at [facility]. He takes multiple inhalers. In June 2020 [...] of breath. He recently was seen at [facility] pulmonary and was recommended to follow-up with [...] daily. He was seen by cardiology at [facility] who also agreed that the shortness of breath is not of a cardiac etiology. His radiology transporter was treating him with steroids. He also underwent walk test in September 2023 during which his oxygen dropped significantly. He previously underwent further evaluation at [facility] pulmonology and his follow-up PFTs showed improvement. He also had upper and lower extremity duplex venous ultrasounds and VQ scan of the lungs in January 2024 which were negative. He was admitted to the hospital at [place] on 10/11/2024 due to COPD exacerbation and [...] cough and shortnes (more content not included)... [facility] 10-14-2024 Telephone encounter Note Please sign pended labs for 6 month f/u if agreeable-will draw with CT 1 week prior Thank You! Seema Drake RN [facility] 10-14-2024 Miscellaneous Notes Please sign pended labs for 6 month f/u if agreeable-will draw with CT 1 week prior Thank You! Seema Drake RN documented in this encounter [facility] 08-04-2024 History of Present illness Narrative Skin [...] limited to risks of scarring, darker or top and trim worker pigmentary changes, recurrence, incomplete removal and infection. [...] months, skin check documented in this encounter [facility] 06-20-2024 History of Present illness Narrative [...] OP CDI policy. Malignant neoplasm of prostate ([facility]) 05/21/2023 Mass of leg 04/15/2024 MGUS (monoclonal gammopathy of unknown significance) 09/09/2023 Microscopic hematuria 05/21/2023 Mixed hyperglyceridemia ([facility]) 05/23/2022 Moderate persistent asthma without complication ([facility]) 05/31/2024 Nasal congestion 05/21/2023 Neuropathy, arm 05/21/2023 Obesity due to excess calories 05/31/2024 JUANA (obstructive sleep apnea) 04/15/2024 Other chronic pain 05/31/2024 Poor urinary stream 05/21/2023 Prostate nodule 05/21/2023 Pulmonary hypertension ([facility]) 07/02/2023 Noted in 05/21/2023 [place] page 1, added per outpatient CDI policy. 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[facility]) 07/02/2023 Recurrent pneumonia 07/17/2021 Severe obesity (BMI 35.0-39.9) with comorbidity ([facility]) 08/03/2020 Ventral hernia 05/21/2023 Wheezing 07/02/2023 Current [...] Partner Violence: Unknown (10/08/2023) Received from [facility] Fear [...] of distress Assessment/Plan documented in this encounter [facility] 06-13-2024 Telephone encounter Note Patient is scheduled 11/15/24 at 1:30 PM Shea Kolb PSS [facility] 06-13-2024 Miscellaneous Notes Patient is scheduled 11/15/24 at 1:30 PM Shea Kolb PSS notified and transferred to [facility] to schedule CT as recommended prior to return visit with BRM. Valerie Mayes RN A voicemail was left on Chiki's phone to return our call to schedule a CT for November. Shea Kolb PSS Dr Mayra Berg, [facility] called and spoke with BRM yesterday with [...] Valerie Mayes RN documented in this encounter [facility] 06-13-2024 Telephone encounter Note notified and transferred to PSS to schedule CT as recommended prior to return visit with BRM. Valerie Mayes RN [facility] 06-10-2024 Telephone encounter Note A voicemail was left on Chiki's phone to return our call to schedule a CT for November. Shea Kolb PSS [facility] 06-10-[address] Mayra Berg, [facility] called and spoke with BRM yesterday with [...] to return visit 11/21/24 Valerie Mayes RN [facility] 06-09-2024 History of Present illness Narrative Subjective [...] for 10 days. documented in this encounter [facility] 06-05-2024 Note HNO ID: [id number] Author: TYLER DRAPER MD Service: ? Author [...] infection Head: normal (more content not included)... [facility] 06-05-2024 History of Present illness Narrative [...] active disease. 02/01/2024 Bilateral lower extremity Doppscan ([facility]) The RIGHT lower extremity was imaged, assessed [...] Trans x 2.56 cm Sagittal. 12/31/2023 CXR ([facility]) IMPRESSION: 1. No significant interval change and no new or worsening airspace disease. No pleural effusion or pneumothorax. 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 2. Stable cardiomediastinal silhouette. 3. Left chest wall CIED with leads in the right atrium and right ventricle. 4. Unchanged compression deformity in the mid thoracic spine. 09/24/2021 Skeletal bone survey ([facility]) No lytic lesions suggestive of multiple myeloma [...] PCP and pulmonary (Dr. Mayra Berg at [facility]). 6. History of hypothyroidism Continue management per [...] Tyler Draper MD CC: Dr. Mayra Berg, Block Setter [facility] at [facility] documented in this encounter [facility] 05-31-2024 History of Present illness Narrative Subjective [...] Partner Violence: Unknown (10/08/2023) Re[facility] from [facility] Environment Fear of Current or [...] He fully understands. documented in this encounter [facility] 05-17-2024 Note Patient Education Nutrition BMI [...] for Disease Control and Prevention: cdc.gov ? [place] [employer]: heart.org ? National Heart, Lung, and Blood [place]: nhlbi.nih.gov This information is not intended to replace advice given to you by your health care provider. Make sure you discuss any questions you have with your health care provider. Document Revised: 04/23/2023 Document Reviewed: 04/16/2023 [employer] Patient Education ? 2023 Mobly. [facility] 05-03-2024 History of Present illness Narrative [...] limited to risks of scarring, darker or top and trim worker pigmentary changes, recurrence, incomplete removal and infection. [...] mo th FBSE documented in this encounter [facility] 04-29-2024 History of Present illness Narrative [...] 1333 PATIENT DISCHARGED TO: Ambulatory patient, left [place] department area. A Diagnostic radioactive procedure has taken place, with no further precautions necessary other than routine body substance precautions. More information regarding radiation safety can be found using this link: [email or web address] [email or web address] [email or web address] SIGNATURE: RT Sonya(R) PATIENT NAME: Chiki Juarez DATE: April 29, 2024 TIME: 1:44 PM PAGER/CONTACT #: documented in this encounter [facility] 04-26-2024 Telephone encounter Note Patient is scheduled with MARY Simmons on 05/03/24 @ 11:00. [facility] 04-26-2024 Miscellaneous Notes Patient is scheduled with MARY Simmons on 05/03/24 @ 11:00. Records faxed to [facility]. Rhona: Information ready for you. Jennie Velasquez Please ref patient to [facility]. Dx Skin Lesion blaise facial area. Their office to call the patient to schedule/ Rhona, Please fax records Julius, Please follow up on this appt. documented in this encounter [facility] 04-22-2024 Hospital Discharge instructions Patient Education 04/22/2024 [...] treatment? Where to find more information The [place] [employer]: www.cancer.org [place] [employer]: www.auanet.org Contact a health care [...] provider. Document Revised: 01/27/2022 Document Reviewed: 01/27/2022 [employer] Patient Education 2023 [employer]. Follow Up Care 03/09/2023 12:17:11 With:MIKE VENTURA, Oni Sewell, URL Address: [facility] [address] [place] [phone] When: Unknown [facility] Frannie 04-20-2024 Telephone encounter Note Records faxed to [facility] Dermatology. [facility] 04-20-2024 Telephone encounter Note Rhona: Information ready for you. Jennie Velasquez [facility] 04-19-2024 Telephone encounter Note Please ref patient to [facility] Dermatology. Dx Skin Lesion blaise facial area. Their office to call the patient to schedule/ Rhona, Please fax records Julius, Please follow up on this appt. [facility] 04-18-2024 History of Present illness Narrative PATIENT [...] visit here he followed up with his radiology transporter at [facility] for 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 For evaluation [...] date: Acute maxillary sinusitis No date: Cancer ([facility]) Comment: Lymphoma No date: Chronic bronchitis with emphysema No date: COPD (chronic obstructive pulmonary disease) ([facility]) No date: COVID No date: Cystic fibrosis gene carrier No date: Dysarthria following nontraumatic intracerebral hemorrhage No date: Hypothyroidism No date: Hypoxemia No date: Multiple myeloma ([facility]) No date: Pulmonary edema No date: Stroke ([facility]) No date: Thyroid disease Comment: [...] RADIOLOGY/OTHER STUDIES: 02/01/2024 Bilateral lower extremity Doppscan ([facility]) The RIGHT lower extremity was imaged, assessed [...] Trans x 2.56 cm Sagittal. 12/31/2023 CXR ([facility]) IMPRESSION: 1. No significant interval change and no new or worsening airspace disease. No pleural effusion or pneumothorax. 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 2. Stable cardiomediastinal silhouette. 3. Left chest wall CIED with leads in the right atrium and right ventricle. 4. Unchanged compression deformity in the mid thoracic spine. 09/24/2021 Skeletal bone survey ([facility]) No lytic lesions suggestive of multiple myeloma [...] random TRUS prostate biopsies with prostate adenocarcinoma, [place] 4+3, 3 cores involved out of 9, [...] PCP and pulmonary (Dr. Mayra Berg at [facility]). 6. History of hypothyroidism Continue management per [...] Tyler Draper MD CC: Dr. Mayra Berg, Block Setter [place]um at [facility] documented in this encounter [facility] 02-02-2024 Telephone encounter Note Pt informed of BRRubysophic message and denies any questions, needs or concerns at this time. Appointment verified. Valerie Mayes RN [facility] 02-02-2024 Miscellaneous Notes Pt informed of BRM message and denies any questions, needs or concerns at this time. Appointment verified. Valerie Mayes RN ----- Message from Tyler Draper MD sent at 02/02/2024 8:08 AM EDT ----- Please inform the patient that his labs are stable. We will continue observation and see him back as scheduled. documented in this encounter [facility] 02-02-2024 Telephone encounter Note ----- Message from Tyler Draper MD sent at 02/02/2024 8:08 AM EDT ----- Please inform the patient that his labs are stable. We will continue observation and see him back as scheduled. [facility] 03-31-2023 Hospital Discharge instructions Patient Education 03/31/2023 [...] [facility] [address] [place] [address]- Business (1) When:03/31/2024 11:58:05 Comments:With a renal ultrasound [facility] 03-09-2023 Hospital Discharge instructions Patient [...] urethra. Follow these instructions at home: Take tdye-qsy-fnixrjj and prescription medicines only as told by [...] provider. Document Revised: 02/19/2022 Document Reviewed: 02/19/2022 [employer] Patient Education 2022 [employer]. Follow Up Care 02/13/2023 11:39:29 With:MIKE VENTURA, Oni Sewell, URL Address: [facility] [address] [place] [address] [phone] When: Unknown Comments:schedule cysto and renal US1 yr w/ PSA [facility] [place] 08-05-2022 Miscellaneous Notes Informed pt of Dr Draper's message. Pt verbalized understanding and denies further needs at this time. Aby Hernandez RN ----- Message from Tyler Draper MD sent at 08/04/2022 12:29 PM EST ----- Please inform the patient that his PSA is stable at 0.26. We will continue as planned. Thanks, BRM documented in this encounter [facility] 07-25-2022 Miscellaneous Notes Spoke to patient and [...] awhile please advise documented in this encounter [facility] 01-16-2022 History of Present illness Narrative HEMATOLOGIC [...] x2 and pneumonia, following pulmonology team at [facility]. He has a family history significant for [...] with PET CR ?Bronchiectasis, follows pulmonology at [facility] Possible cystic fibrosis, follows pulmonology at [facility], genetic testing pending Previous surgeries include a pacemaker in 2019. No family history of hematologic or oncologic issues but significant for cystic fibrosis in brother and nephew; granddaughter is a carrier of cystic fibrosis. Patient lives in [place], [place] with his , Nicolasa. He has 4 children. He has a 04-qnot-cvmo smoking history and quit in 1986. He [...] Thus, a bone marrow biopsy would not shredding machine knife changer and it is okay to hold [...] CC: Will Sherwood documented in this encounter [facility] 01-09-2022 History of Present illness Narrative HEMATOLOGIC [...] random TRUS prostate biopsies with prostate adenocarcinoma, [place] 4+3, 3 cores involved out of 9, [...] x2 and pneumonia, following pulmonology team at [facility]. He has a family history significant for [...] a history of Hypothyroidism Prostate Cancer, localized, [place] 7, treated with EBRT (Dr. 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 No family history of hematologic or oncologic issues but significant for cystic fibrosis in brother and nephew; granddaughter is a carrier of cystic fibrosis. Patient lives in [place], [place] with his , Nicolasa. He has 4 children. He has a 63-jrwa-mwkr smoking history and quit in 1986. He [...] Thus, a bone marrow biopsy would not shredding machine knife changer and it is okay to hold off for now. PSA stable at 0.30. He will follow up with Dr. Sousa for his history of prostate cancer. Hosea Herrera MD I spent a total of 20 minutes on the date of the service which included preparing to see the patient, eswk-zi-luxc patient care, completing clinical documentation, obtaining and/or reviewing separately obtained history, performing a medically appropriate examination, counseling and educating the patient/family/caregiver, ordering medications, tests, or procedures, independently interpreting results (not separately reported) and communicating results to the patient/family/caregiver. CC: Will Sherwood documented in this encounter [facility] 11-19-2021 Hospital Discharge instructions Patient Education 11/19/2021 [...] who: Are older than age 65. Are -[place]. Are obese. Have a family history of [...] cells. Follow these instructions at home: Take jqrc-mkr-oqbgvww and prescription medicines only as told by [...] 08/03/2006 Document Revised: 07/16/2018 Document Reviewed: 04/13/2017 [employer] Patient Education 2020 [employer]. Follow Up Care 10/30/2020 10:17:46 With:Young Manriquez MD, Romeo Valles, URO Address: [facility] [address] [place] [address]- [phone] When: Unknown [facility] Evaluation + Plan note Future Appointments Appointment Date:11/25/2022 10:15:00 AM Scheduled Provider:Romeo Vidal Jr., MD Location:[facility] Appointment Type:URO Office Visit [facility] Evaluation + Plan note Future Appointments Appointment Date:01/22/2024 11:00:00 AM Scheduled Provider: [facility] Type:FM Medicare Wellness Subsequent Diagnostic Tests PendingT3 Free 01/26/23 [facility] Evaluation + Plan note Future Appointments Appointment Date:03/24/2023 10:00:00 AM Scheduled Provider: Location:[facility] Appointment Type:Urology CALL PAT FT Appointment Date:03/31/2023 11:15:00 AM Scheduled Provider: Location:[facility] Appointment Type:Urology FT Appointment Date:01/22/2024 11:00:00 AM Scheduled Provider: [facility] Appoint[facility] Type:FM Medicare Wellness Subsequent Appointment Date:03/14/2024 11:15:00 AM Scheduled Provider:Oni MCKEON MD Location:[facility]ue Appointment Type:URO Office Visit Diagnostic Tests PendingPSA Total 03/09/23 [facility] Evaluation + Plan note Future Appointments Appointment Date:01/22/2024 11:00:00 AM Scheduled Provider: [facility] Appointment Type:FM Medicare Wellness Subsequent Appointment Date:03/14/2024 11:15:00 AM Scheduled Provider:Oni MCKEON MD Location:[facility]ue Appointment Type:URO Office Visit [facility] Evaluation + Plan note Future Appointments Appointment Date:12/02/2023 01:00:00 PM Scheduled Provider:Pito Patterson MD Location:[facility] Appointment Type:FM Open Appointment Date:01/18/2024 01:00:00 PM Scheduled Provider:Pito Patterson [facility] Open Appointment Date:01/22/2024 11:00:00 AM Scheduled Provider: Location:[facility] Appointment Type: Medicare Wellness Subsequent Appointment Date:03/14/2024 11:15:00 AM Scheduled Provider:Oni MCKEON MD Location:[facility] Appointment Type:URO Office Visit [facility] Evaluation + Plan note Future Appointments Appointment Date:05/17/2024 10:00:00 AM Scheduled Provider:Pito Patterson MD [facility] Type: Open Appointment Date:02/14/2025 08:00:00 AM Scheduled Provider: Location:[facility] Appointment Type: Medicare Wellness Subsequent Appointment Date:04/24/2025 09:45:00 AM Scheduled Provider:Oni MCKEON MD Location:[facility] Appointment Type:URO Office Visit Diagnostic Tests PendingPSA Total 04/22/24 [facility] Evaluation + Plan note Future Appointments Appointment Date:04/24/2025 09:45:00 AM Scheduled Provider:Oni MCKEON MD Location:[facility] Appointment Type:URO Office Visit Appointment Date:02/15/2026 09:30:00 AM Scheduled Provider: Location:[facility] Appointment Type: Medicare Wellness Subsequent Diagnostic Tests PendingHCV Antibody RFX to Quant PCR 02/16/25 [facility] Evaluation + Plan note Future Appointments Appointment Date:02/15/2026 09:30:00 AM Scheduled Provider: Location:[facility] Appointment Type: Medicare Wellness Subsequent [facility] Evaluation note Diagnosis MGUS (monoclonal gammopathy of unknown significance)- Primary Monoclonal paraproteinemia [facility] Diagnosis B12 deficiency- Primary Other B-complex deficiencies Diffuse large B-cell lymphoma, unspecified body region (HCC) [facility] Diagnosis MGUS (monoclonal gammopathy of unknown significance)- Primary Monoclonal paraproteinemia Macrocytic anemia Unspecified deficiency anemia [facility] Diagnosis MGUS (monoclonal gammopathy of unknown significance)- Primary Monoclonal paraproteinemia History of lymphoma Personal history of other lymphatic and hematopoietic neoplasm Lymph node enlargement Enlargement of lymph nodes Skin lesion of face Unspecified disorder of skin and subcutaneous tissue [facility] Diagnosis History of lymphoma Personal history of other lymphatic and hematopoietic neoplasm Lymph node enlargement Enlargement of lymph nodes [facility] Diagnosis Squamous cell carcinoma of scalp- Primary Other malignant neoplasm of scalp and skin of neck 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 documented in this encounter [facility] HealthcareEvaluation noteNo assessment information availableFulton County [facility] Center Work Phone: Evaluation note* Diagnosis MGUS (monoclonal gammopathy of unknown significance)- Primary Monoclonal paraproteinemia History of lymphoma Personal history of other lymphatic and hematopoietic neoplasm History of prostate cancer Personal history of malignant neoplasm of prostate Skin lesion of face Unspecified disorder of skin and subcutaneous tissue [facility] Diagnosis Wound infection- Primary Posttraumatic wound infection not elsewhere classified Squamous cell carcinoma of scalp Other malignant neoplasm of scalp and skin of neck documented in this encounter [facility] HealthcareEvaluation note* Diagnosis Localized enlarged lymph nodes- Primary Enlargement of lymph nodes [facility] Diagnosis Squamous cell carcinoma of scalp- Primary Other malignant neoplasm of scalp and skin of neck Wound infection Posttraumatic wound infection not elsewhere classified Thyroid nodule (CMS/HCC) Nontoxic uninodular goiter documented in this encounter [facility] HealthcareEvaluation note* Diagnosis Hemangioma of skin and subcutaneous tissue- Primary Neoplasm of unspecified behavior of bone, soft tissue, and skin Seborrheic keratosis Actinic keratosis documented in this encounter [facility] HealthcareEvaluation note* Diagnosis Capillary angioma- Primary Nevus, non-neoplastic Melanocytic nevus of trunk Benign neoplasm of skin of trunk, except scrotum Seborrheic keratosis Actinic keratosis History of SCC (squamous cell carcinoma) of skin Personal history of other malignant neoplasm of skin Lentigo simplex Other dyschromia documented in this encounter [facility]* Diagnosis Diffuse large B-cell lymphoma, unspecified body region (HCC)- Primary [facility] Diagnosis Localized enlarged lymph nodes Enlargement of lymph nodes Diffuse large B-cell lymphoma, unspecified body region (HCC) [facility] Diagnosis MGUS (monoclonal gammopathy of unknown significance)- Primary Monoclonal paraproteinemia History of prostate cancer Personal history of malignant neoplasm of prostate Acquired hypothyroidism Unspecified hypothyroidism [facility] Diagnosis Melanocytic nevus of trunk- Primary Benign neoplasm of skin of trunk, except scrotum History of SCC (squamous cell carcinoma) of skin Personal history of other malignant neoplasm of skin Seborrheic keratosis Actinic keratosis Ayala angioma Other seborrheic dermatitis documented in this encounter [facility] HealthcareEvaluation note* Diagnosis Venous insufficiency (chronic) (peripheral)- Primary Unspecified venous (peripheral) insufficiency Onychomycosis Dermatophytosis of nail Pain in left toe(s) Pain in right toe(s) documented in this encounter [facility] HealthcareEvaluation note* Diagnosis Onychomycosis- Primary Dermatophytosis of nail Pain in left toe(s) Pain in right toe(s) [facility] N[facility] No data available for this section [facility] Hospital Discharge instructions No data available for this section [facility] Additional Instructions No [...] or concerns Follow-up in the office as scheduledF[facility] Work Phone: Progress note No data available for this section [facility] Summary Purpose Family History No Family History Records Found Relationship Condition Age at Onset Recorded Date/T ruma mother Malignant neoplasm of lung Unknown Unknown Advance Directives No Advanced Directives Records Found Advance Directive Response Recorded Date/ Time Advance Directives No June 01, 2024 10:37am Hospital Course Note MR#: [id number] I [facility] Pt. Name: Chiki Juarez Admitted: 06/26/2020 [...] asthma, lymphoma, and hypothyroidism, who transferred to [facility] for evaluation of poss (more content not included)... Reason for Referral Specialty Diagnoses / Procedures Referred By Chelsie t Referred To Contact CT IMAGING Diagnoses Localized enlarged lymph nodes Procedures CT CHEST W IVCON DIAGNOSTIC COMPUTED TOMOGRAPHY THORAX W/CONTRAST Tyler Draper MD [address] [place] [address] [place] [address] Ct Imaging [id number] Referral ID Status Reason Start Date Expiration Date Visits Requested Visits Authorized [id number] Authorized Auto-Generat ed Referral 11/15/2024 07/10/2025 1 1 Specialty Diagnoses / Procedures [facility] Referred To Contact Dermatology Diagnoses Skin lesion of face Procedures CONSULT TO DERMATOLOGY OFFICE/OUTPATIENT [facility] 60 MINUTES Tyler Draper MD [address] [place] [address] [place] [address] Referral ID Status Reason Start Date Expiration Date Visits Requested Visits Authorized [id number] Authorized PCP Requested Referral 04/19/2024 04/19/2025 1 1 Specialty Diagnoses / Procedures Referred By Chelsie Referred To Contact MOLECULAR & FUNCTIONAL IMAGING Diagnoses History of lymphoma Lymph node enlargement Procedures NM PET/CT SKULL-THIGH SUBSEQUENT PET IMAGING CT ATTENUATION SKULL BASE MID-THIGH Tyler Draper MD [address] [place] [address] [place] [address] Molecular & Functional Imaging [address] [place] [id number] Referral ID Status Reason Start Date Expiration Date Visits Requested Visits Authorized [id number] Authorized Auto-Generat ed Referral 04/19/2024 05/19/2025 1 [...] and content) DATE CREATED AUTHOR 07/16/2020 [facility] DATE CREATED AUTHOR AUTHOR'S ORGANIZ ATION 04/26/2022 [facility] DATE CREATED AUTHOR AUTHOR'S ORGANIZ ATION 10/16/2024 [facility] DATE CREATED AUTHOR AUTHOR'S ORGANIZ ATION 02/19/2025 [facility] DATE CREATED AUTHOR AUTHOR'S ORGANIZ ATION 02/22/2025 [facility] DATE CREATED AUTHOR AUTHOR'S ORGANIZ ATION 03/08/2025 [facility] DATE CREATED AUTHOR AUTHOR'S ORGANIZ ATION 04/25/2025 [facility] DATE CREATED AUTHOR AUTHOR'S ORGANIZ ATION 05/27/2025 [facility] Special[facility] DATE CREATED AUTHOR AUTHOR'S ORGANIZ ATION 05/31/2025 [facility] DATE CREATED AUTHOR AUTHOR'S ORGANIZ ATION 06/04/2025 [facility] Source Comments (unrecognize d section and content) In the event this informatio n is protected by the Federal Confidentiality of Alcohol and Drug Abuse Patient Records regulations: The Federal rules restrict any use of the information to criminally investigate or prosecute any alcohol or drug abuse patient.[facility] the event this information is protected by the Federal Confidentiality of Alcohol and Drug Abuse Patient Records regulations: The Federal rules restrict any use of the information to criminally investigate or prosecute any alcohol or drug abuse patient.[facility] the event this information is protected by the Federal Confidentiality of Alcohol and Drug Abuse Patient Records regulations: The Federal rules restrict any use of the information to criminally investigate or prosecute any alcohol or drug abuse patient.[facility] the event this information is protected by the Federal Confidentiality of Alcohol and Drug Abuse Patient Records regulations: The Federal rules restrict any use of the information to criminally investigate or prosecute any alcohol or drug abuse patient.[facility] the event this information is protected by the Federal Confidentiality of Alcohol and Drug Abuse Patient Records regulations: The Federal rules restrict any use of the information to criminally investigate or prosecute any alcohol or drug abuse patient.[facility] the event this information is protected by the Federal Confidentiality of Alcohol and Drug Abuse Patient Records regulations: The Federal rules restrict any use of the information to criminally investigate or prosecute any alcohol or drug abuse patient.[facility] the event this information is protected by the Federal Confidentiality of Alcohol and Drug Abuse Patient Records regulations: The Federal rules restrict any use of the information to criminally investigate or prosecute any alcohol or drug abuse patient.[facility] the event this information is protected by the Federal Confidentiality of Alcohol and Drug Abuse Patient Records regulations: The Federal rules restrict any use of the information to criminally investigate or prosecute any alcohol or drug abuse patient.[facility] the event this information is protected by the Federal Confidentiality of Alcohol and Drug Abuse Patient Records regulations: The Federal rules restrict any use of the information to criminally investigate or prosecute any alcohol or drug abuse patient.[facility] the event this information is protected by the Federal Confidentiality of Alcohol and Drug Abuse Patient Records regulations: The Federal rules restrict any use of the information to criminally investigate or prosecute any alcohol or drug abuse patient.[facility] the event this information is protected by the Federal Confidentiality of Alcohol and Drug Abuse Patient Records regulations: The Federal rules restrict any use of the information to criminally investigate or prosecute any alcohol or drug abuse patient.[facility] the event this information is protected by the Federal Confidentiality of Alcohol and Drug Abuse Patient Records regulations: The Federal rules restrict any use of the information to criminally investigate or prosecute any alcohol or drug abuse patient.[facility] the event this information is protected by the Federal Confidentiality of Alcohol and Drug Abuse Patient Records regulations: The Federal rules restrict any use of the information to criminally investigate or prosecute any alcohol or drug abuse patient.[facility] the event this information is protected by the Federal Confidentiality of Alcohol and Drug Abuse Patient Records regulations: The Federal rules restrict any use of the information to criminally investigate or prosecute any alcohol or drug abuse patient.[facility] CampusIn the event this information is protected by the Federal Confidentiality of Alcohol and Drug Abuse Patient Records regulations: The Federal rules restrict any use of the information to criminally investigate or prosecute any alcohol or drug abuse patient.[facility] Reason for Visit (unrecogniz ed section and [...] ATTENUATION SKULL BASE MID-THIGH Tyler Draper MD [address] [place] [address] [place] [address] Molecular & Functional Imaging [address] [id number] Referral ID Status Reason Start Date Expiration Date V isits Requested Visits Authorized [id number] Closed Auto-Generate d Referral 04/19/2024 05/19/2025 1 1 Reason Comments Suspicious Skin Lesion New patient : SCC left cheek / right scalp Specialty Diagnoses / Procedures Referred By Contac t Referred To Contact Otolaryngology Diagnoses 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 Procedures ND OFFICE/OUTPATIENT NEW HIGH MDM 60 MINUTES Crys Taylor PA [address] [place] [address] Phone: tel: fax: Connor Crawley, [address] [place] [address] Phone: tel: fax: Referral ID Status Reason Start Date Expiration Date V isits Requested Visits Authorized [id number] Closed Specialty Services Required 05/09/2024 11/05/2024 1 1 Reason Comments 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) Reason Comments Post-op Post op exc SCC scal p Reason Comments Pet results Reason Comments Post-op Specialty Diagnoses / Procedures Referred By Contac t Referred To Contact Dermatology Diagnoses skin lesion of face Procedures office visit Tyler Draper MD [address] [place] [address] [place] [address] Lucie Tompkins MD [address] [place] [address] Referral ID Status Reason Start Date Expiration Date Visits Re quested Visits Authorized [id number] Closed 04/21/2024 10/18/2024 1 1 Reason Comments Skin Check Reason Comments Orders Reason Comments Radiology CT Specialty Diagnoses / Procedures Referred By Contac t Referred To Contact CT IMAGING Diagnoses Localized enlarged lymph nodes Procedures CT CHEST W IVCON DIAGNOSTIC COMPUTED TOMOGRAPHY THORAX W/CONTRAST Tyler Draper MD [address] [facility] [place] [address] Phone: tel: fax: [place] [address] Referral ID Status Reason Start Date Expiration Date V isits Requested Visits Authorized [id number] Closed Auto-Generate d Referral 11/15/2024 07/10/2025 1 1 Reason Comments MGUS Reason Onset Date Comments TSH results 11/24/2024 Reason Comments Toenail Care Non DM nail care Reason Comments Toenail Care Non dm nail care Care Teams (unrecognized sec tion and content) Selector Packer Relationship Specialty Start Date End Date Will Sherwood MD [address] [facility] [place] [address] PCP - General 08/01/05 Selector Packer Relationship Specialty Start Date End Date Will Sherwood MD [address] [place] [facility] [place] [place] [address] PCP - General 08/01/05 Selector Packer Relationship Specialty Start Date End Date Will Sherwood MD [address] [place] [facility] [place] [address] PCP - General 08/01/05 Selector Packer Relationship Specialty Start Date End Date Will Sherwood MD [address] [facility] [place] [address] PCP - General 08/01/05 Selector Packer Relationship Specialty Start Date End Date Pito Patterson MD [address] [place] [facility] [place] [address] PCP - General Family Medicine 07/23/23 Selector Packer Relationship Specialty Start Date End Date Pito Patterson MD [address] [place] [address] PCP - General Family Medicine 07/23/23 Selector Packer Relationship Specialty Start Date End Date Pito Patterson MD [address] [place] [address] PCP - General Family Medicine 07/23/23 Selector Packer Relationship Specialty Start Date End Date Pito Patterson MD [address] [place] [address] PCP - General Family Medicine 07/23/23 Selector Packer Relationship Specialty Start Date End Date Unallocated, Noms MD Coel [address] [place] [address] PCP - General Family Medicine 04/08/23 Crys Taylor PA [address] [place] [address] Physician Vascular Sonographer Dermatology 05/31/24 Connor Crawley DO [address] [place] [address] Otolaryngology 05/31/24 Selector Packer Relationship Specialty Start Date End Date Piot Patterson MD [address] [place] [address] PCP - General Family Medicine 05/31/24 Crys Taylor PA [address] [place] [address] Physician Vascular Sonographer Dermatology 05/31/24 Connor Crawley DO [address] [place] [address] Otolaryngology 05/31/24 Team Status: Active Member Role Status Dates Pito Patterson MD Primary Care Provider Active Team Status: Inactive Member Role Status Dates Connor Crawley DO Attending Provider Active S tart: June 01, 2024 End: June 01, 2024 Pito Patterson MD Primary Care Provider Active Start: June 01, 2024 End: June 01, 2024 Selector Packer Relationship Specialty Start Date End Date Pito Patterson MD [address] [place] [address] PCP - General Family Medicine 05/31/24 Crys Taylor PA [address] [place] [address] Physician Vascular Sonographer Dermatology 05/31/24 Cnonor Crawley DO [address] [place] [address] Otolaryngology 05/31/24 Selector Packer Relationship Specialty Start Date End Date Pito Patterson MD [address] [place], [place] [id number] PCP - General Family Medicine 07/23/23 Selector Packer Relationship Specialty Start Date End Date Pito Patterson MD [address] [place] [address] PCP - General Family Medicine 05/31/24 Crys Taylor PA [address] [place] [address] Physician Vascular Sonographer Dermatology 05/31/24 Connor Crawley DO [address] [place] [address] Otolaryngology 05/31/24 Selector Packer Relationship Specialty Start Date End Date Unallocated, Noms MD Cole [address] [facility] [place] [address] PCP - General Family Medicine 04/08/23 Selector Packer Relationship Specialty Start Date End Date Unallocated, Noms MD Cole [address] [place] [address] PCP - General Family Medicine 04/08/23 Selector Packer Relationship Specialty Start Date End Date Pito Patterson MD [address] [place] [address] PCP - General Family Medicine 05/31/24 Crys Taylor PA [address] [phone] Physician Vascular Sonographer Dermatology 05/31/24 Connor Crawley DO [address] [place] [address] Otolaryngology 05/31/24 Selector Packer Relationship Specialty Start Date End Date Pito Patterson MD [address] [place] [address] PCP - General Family Medicine 07/23/23 Selector Packer Relationship Specialty Start Date End Date Pito Patterson MD [address] [place] [address] PCP - General Family Medicine 07/23/23 Selector Packer Relationship Specialty Start Date End Date Pito Patterson MD [address] [place] [address] PCP - General Family Medicine 07/23/23 Selector Packer Relationship Specialty Start Date End Date Pito Patterson MD [address] [place] [address] PCP - General Family Medicine 07/23/23 Selector Packer Relationship Specialty Start Date End Date Pito Patterson MD [address] [place] [phone] PCP - General Family Medicine 05/31/24 Crys Taylor PA [address] [place] [address] Physician Vascular Sonographer Dermatology 05/31/24 Connor Crawley DO [address] [place] [address] Otolaryngology 05/31/24 Selector Packer Relationship Specialty Start Date End Date Pito Patterson MD [address] [place] [address] PCP - General Family Medicine 05/31/24 Crys Taylor PA [address] [place] [address] Physician Vascular Sonographer Dermatology 05/31/24 Connor Crawley DO [address] [place] [address] Otolaryngology 05/31/24 Selector Packer Relationship Specialty Start Date End Date Elpidio Wing MD [address] [facility] [place] [address] PCP - General Family Medicine 03/15/25 Crys Taylor PA [address] [place] [address] Physician Vascular Sonographer Dermatology 05/31/24 Connor Crawley DO [address] [place] [address] Otolaryngology 05/31/24 Selector Packer Relationship Specialty Start Date End Date Elpidio Wing MD [address] [facility], [place] [address] PCP - General Family Medicine 03/15/25 Crys Taylor PA [address] [place] [address] Physician Vascular Sonographer Dermatology 05/31/24 Connor Crawley, [address] [place] [address] Otolaryngology 05/31/24 Selector Packer Relationship Specialty Start Date End Date Elpidio Wing MD [address] [facility], [place] [address] PCP - General Family Medicine 03/15/25 Crys Taylor PA [address] [place] [address] Physician Vascular Sonographer Dermatology 05/31/24 Connor Crawley DO [address] [place] [address] Otolaryngology 05/31/24 FOR RECORDS PERTAINING TO PATIENTS [...] BE BASED ON THE PRIMARY CLINICAL RECORDS. [facility] [employer] [facility] provides no warranty or guarantee of the accuracy or completeness of information in this document.
[2025-06-05 12:50] LABS: Free T3 2.26 pg/mL (2.18-3.98); Thyroid Stimulating Hormone 0.185 uIU/mL (0.358-3.740)
== END 2025-06-05 11:53 | disposition home or self-care (01) ==
LOC: LAB 11:57
PROVIDERS: PCP Family Medicine; Visit Provider Family Medicine
DX: Z12.11 Encounter for screening for malignant neoplasm of colon (principal); Z12.5 Encounter for screening for malignant neoplasm of prostate
CPT/HCPCS: 36415; 84436; 84443; 84481; G0103

== ENCOUNTER 2025-07-12 13:34 | Outpatient (OUT) | payer MEDICARE, SELFPAY ==
--- OUTSIDE RECORDS SUMMARY | 2025-07-12 13:37 | XMS_ITS | Clinical Summary ---
Author Organization [facility] Healthcare Address [address] [place] [address] Care Team Providers Care Stage Setting Painter Apprentice Name Role Phone Edwige Taylor PA Unavailable [phone] Connor Muñoz DO Unavailable [phone] Elpidio Wing MD Primary Care Provider [phone] Allergies Active AllergyReactionsCriticalityNoted RjjvQurrisfnBxbbqYddzKcg33/19/2025 Medications MedicationSigDispense QuantityRefillsLast FilledStart DateEnd DateStatus Spiriva HandiHaler 18 MCG inhalation capsule Active Tezspire 210 MG/1.91ML solution auto-injector 04/05/2024ctive spironolactone (Aldactone) 50 MG tablet Active sodium chloride 7 % nebulizer solution nebulizer solution 11/17/2023ctive HyperSal 3.5 % nebulizer solution nebulizer solution Inhale 4 mL in the morning and 4 mL in the evening.04/21/2024ctive Serevent Diskus 50 MCG/ACT aerosol powder Inhale 1 puff in the morning and 1 puff in the evening.Active predniSONE (Deltasone) 10 MG tablet Take 10 mg by mouth in the morning.Active potassium chloride ER (Micro-K) 10 MEQ ER capsule Take 10 mEq by mouth07/28/2023ctive montelukast (Singulair) 10 MG tablet Take 10 mg by mouth DailyActive metoprolol succinate XL (Toprol-XL) 25 MG 24 hr tablet Take 25 mg by mouth at jirjige8107/28/2023ctive loratadine (Claritin) 10 MG tablet Take 1 tablet by mouth DailyActive levothyroxine (Synthroid, Levoxyl) 100 MCG tablet Take 100 mcg by mouth DailyActive ipratropium-albuterol (Duo-Neb) 0.5-2.5 mg/3 mL nebulizer solution every 6 (six) hoursActive ipratropium (Atrovent) 0.06 % nasal spray Administer 2 sprays into affected nostril(s) in the morning and 2 sprays in the evening.04/21/2024ctive gabapentin (Neurontin) 300 MG capsule Take 300 mg by mouth at ijjkijt4505/11/2023ctive furosemide (Lasix) 40 MG tablet Take 1 tablet by mouth DailyActive doxycycline (Vibramycin) 100 MG capsule Take 100 mg by mouth in the morning.Active Cyanocobalamin (Vitamin B 12) 100 MCG lozenge Active cyanocobalamin (Vitamin B-12) 1000 MCG tablet Take 1,000 mcg by mouth in the morning.Active cholecalciferol (Vitamin D-[address]) 25 MCG (1000 UT) tablet Take 1,000 Units by mouthActive calcium carbonate 1500 (600 Ca) MG tablet every 12 (twelve) hoursActive calcitonin, salmon, (Miacalcin) 200 UNIT/ACT nasal spray 1 spray 1 (one) time each day at the same timeActive budesonide (Pulmicort) 0.5 MG/2ML nebulizer solution Active budesonide (Pulmicort) 1 MG/2ML nebulizer solution 2 mL12/31/2023ctive azelastine (Astelin) 0.1 % nasal spray Administer 1 spray into affected nostril(s) in the morning and 1 spray in the evening.04/21/2024ctive aspirin 81 MG EC tablet Take 81 mg by mouth in the morning.Active albuterol HFA 90 mcg/act inhaler Inhale 2 puffs Daily as ddjzrm1610/08/2023ctive albuterol (2.5 MG/3ML) 0.083% nebulizer solution Active acetaminophen-codeine (Tylenol w/ Codeine #3) 300-30 MG tablet Active Fluticasone-Salmeterol 500-50 MCG/ACT aerosol powder 1 puff every 12 (twelve) hoursActive Ciclopirox 1 % shampoo Indications:Other seborrheic dermatitisLather on wet hair, leave on 5 min, rinse 2-3 x week, 30 day supply 120 mL 1105Active Active Problems No known active problems Resolved Problems ProblemNoted DateDiagnosed DateResolved DateHistory of qslohsrj88/15/2024 05/31/20249224Ydgvxihmofbpe80Macrocytic qsstan35 Overview (05/31/2024): noted in 07/21/2023 Cardiology Consult Note page 4. added per OP CDI policy. Moderate persistent asthma without nxblpuopsogq11Other chronic painompression fracture of thoracic vertebra with routine yrtfjfd80Obesity due to excess izacgtui26 Chronic hypoxic respiratory mpngfwr29hronic kidney disease, stage 3aMass of legOSA (obstructive sleep apnea)ecreased ambulation eldcgr96 MGUS (monoclonal gammopathy of unknown significance)hronic diastolic heart yjpuvwg11 Overview (05/31/2024): Noted in 05/21/2023 UT page 1, added per outpatient CDI policy. Abnormal CT scanhronic hhrvwwdwx50Edema of both upper armsulmonary wtrfmonvmsce28 Overview (05/31/2024): Noted in 05/21/2023 UT page 1, added per outpatient CDI policy. 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HHS-HCC)Wheezing07/02/2023 05/31/2024sthma-chronic obstructive pulmonary disease overlap syndrome enign prostatic hyperplasia with urinary obstruction Former qokzlt09Hearing loss05/21/2023 05/31/2024High prostate specific antigen (PSA)History of B- cell azxtuvqg84History of malignant neoplasm of prostate Kidney stoneLymphoma1 Malignant neoplasm of hzyuewem72Microscopic hematuria Nasal wpfomcjejs46Neuropathy, arm oor urinary neqwsc83rostate nodule Ventral idejvc56ilateral leg edema ardiac pacemaker in situ Overview (05/31/2024): noted in 07/28/2023 Cardiology Consult Note page 1. added per OP CDI policy. History of cerebrovascular myldujyv40Mixed hyperglyceridemia enign essential zybmzy47ough07/17/2021 05/31/20248698Gadpaxn98ecurrent kuusljbfi61 Cerebrovascular accident (CVA)omplete atrioventricular blockLeft temporal lobe fwygtrxawl90Severe obesity (BMI 35.0-39.9) with mwrhaaojrfr93-cell lymphoma HypoxiaHypothyroidism11/23/2018 05/31/2024B12 tyzgfcknqe86iffuse large B cell lymphoma Encounters DateTypeDepartmentCare XbjmXkuarfdeguu61/08/2025 3:10 PM EDTProcedure Visit [facility] [address] [place] [address] Gil Little, DPM FACFAS Onychomycosis (Primary Dx); Pain in left toe(s); Pain in right toe(s)05/24/2025amboo flowsheet [facility] [place] [address] [place] [address] Gil Little, DPM FACFAS from Last 3 Months Immunizations ImmunizationAdministration DatesNext DueInfluenza, High Dose Seasonal, Preservative Free05/12/2024,05/11/2023,04/26/2018Influenza, High-dose Seasonal, Quadrivalent, Preservative Free05/24/2021,05/09/2020Influenza, Unspecified 08/04/2017Influenza, injectable, quadrivalent, preservative free05/25/2018 Influenza, trivalent, zfrophgpip71/31/2019Pneumococcal Conjugate PCV 13 08/04/2017Pneumococcal Polysaccharide JBPL1420,04/26/2018RSV, recombinant, protein subunit RSVpreF, adjuvant reconstitu, 120mcg/0.5mL, PF (Arexvy)03/21/2024Tdap05/09/2020Zoster, Qqocgcggxyn57/08/2020,07/22/2020, 05/09/2020 Social History Tobacco UseTypesPacks/DayYears UsedDateSmoking Tobacco: FormerCigarettesPassive Smoke Exposure: NeverSmokeless Tobacco: Never Tobacco Cessation:Counseling Given: Yes Alcohol UseStandard Drinks/WeekCommentsDefer0 (1 standard drink = 0.6 oz pure alcohol)Sex and Gender InformationValueDate RecordedSex Assigned at BirthNot on fileLegal PdlUiky9012/15/2022 8:35 PM EDTGender IdentityNot on fileSexual OrientationNot on file Last Filed Vital Signs Vital SignReadingTime TakenCommentsBlood Daerljfg311/7410 3:57 PM EDT Vasfp494105/24/2025 3:57 PM EDTTemperature--Respiratory Rate--Oxygen Saturation-- Inhaled Oxygen Concentration--Fsgsiq56.6 kg (213 lb)05/24/2025 3:57 PM EDTHeight 160 cm (5' 3 )05/24/2025 3:57 PM EDTBody Mass Index37.7305/24/2025 3:57 PM EDT Plan of Treatment DateTypeDepartmentCare Team (Latest Contact Info)Qbywtfnuxzp62/17/2025 3:00 PM ESTProcedure Visit [facility] [address] [place] [address] Gil Little, DPM FACFAS [address] [facility] [place] [address] 08/03/2025 1:10 PM ESTOffice Visit [facility] [address] [place] [address] Edwige Taylor PA [address] [place] [address] Health MaintenanceDue DateLast DoneCommentsCOVID-19 Vaccine ( season) 5005/12/2024, 05/12/2024, 07/02/2023, Additional history existsInfluenza Vaccine (#1)509/, 05/11/2023, 05/24/2021, Additional history existsPneumococcal Vaccine: 65+ DfxtjOxpttrtpp52/09/2018, 04/26/2018, 08/04/[address] [place] [address] Care Teams Team MemberRelationshipSpecialtyStart DateEnd Elpidio Wing MD [address] [facility] [place] [address] PCP - GeneralFamily Medicine03/15/25 Edwige Taylor PA [address] [facility] [address] [place] [address] Physician RjmuzzgtcTwttptsinxn73/15/24 Connor Muñoz DO [address] [place] [address] Oxkzljhxhxxzjf93/15/24
--- OUTSIDE RECORDS SUMMARY | 2025-07-12 13:37 | XMS_ITS | Clinical Summary ---
Author Organization [facility] Address [address] [place] [address] Phone Care Team Providers Care Photogrammetric Surveyor Name Role Phone Unavailable Primary Care Provider Unavailabl e Social History Tobacco UseTypesPacks/DayYears UsedDateSmoking Tobacco: Never AssessedSex and Gender InformationValueDate RecordedSex Assigned at BirthNot on fileLegal Sex Male07/12/2022 3:56 PM ESTGender IdentityNot on fileSexual OrientationNot on file Plan of Treatment Not on file
--- OUTSIDE RECORDS SUMMARY | 2025-07-12 13:37 | XMS_ITS ---
Author Organization [facility] Address [address] [address] Care Team Providers Care Senior Account Clerk Name Role Phone Elpidio Wing MD Primary Care Provider [phone] Active Problems ProblemNoted DateDiagnosed DateBack pain05/31/2025ystic fibrosis carrier 05/31/2025Former tobacco use05/31/2025Long term current use of inhaled steroid 05/31/2025Lumbar qjbbrhouoqwqn14/15/2025Prolonged QT qwbnscfo01/15/2025 Uncomplicated severe persistent npqkbr6705/31/20250364Ukjrwwabgqrhm40/07/2025Chronic hypoxic respiratory vqmjshf8904/15/2024hronic kidney disease, stage 3a04/15/2024 Macrocytic rhvvhq7104/15/2024 Overview (04/15/2024): noted in 07/21/2023 Cardiology Consult Note page 4. added per OP CDI policy. Mass of leg04/15/2024OSA (obstructive sleep apnea)4Decreased ambulation /MGUS (monoclonal gammopathy of unknown significance) 4Chronic diastolic heart ingwxgs38/07/2023 Overview (07/28/2023): Noted in 05/21/2023 UT page 1, added per outpatient CDI policy. Abnormal CT scan/hronic dyxqpform91/07/2023Edema of both upper arms/ulmonary eneuchqztngb91/16/2023 Overview (07/28/2023): Noted in 05/21/2023 UT page 1, added per outpatient CDI policy. Radiation fibrosis of lungWheezingenign prostatic hyperplasia with urinary guclwbvvggb38ompression fracture of zjinjgad35Former tocjye86Hearing lossHigh prostate specific antigen (PSA) History of malignant neoplasm of cceivbgw18History of B-cell pjngqbyz01OPD with svahul07idney stone Lymphoma1Malignant neoplasm of prostate Microscopic dzyjyzhen91Nasal congestion Neuropathy, armoor urinary stream Ventral ydqirh08rostate wzefor8205/21/2023 05/21/2023ilateral leg edemaomplete AV block05/23/2022 History of cerebrovascular tgfyvzmd77/07/2022ardiac pacemaker in situ05/23/2022 Mixed jscxuxdglffhufuuh63/07/2022enign essential aolvtn56 Coughyspnea07/17/2021ecurrent beffepkjo10/01/2021 05/21/2023erebrovascular accident (CVA)Left temporal lobe uceymeezum93Severe obesity (BMI 35.0-39.9) with comorbidity Hypothyroidism12 owugxciouz70/27/2017 05/21/2023iffuse large B cell mopirwkt10 Current Treatment and Therapy Plans No current plan information found. Past Treatment and Therapy Plans No past plan information found. Lifetime Dose Tracking * ChemicalLifetime DoseAutomatic EntryManual EntryFluoro Time2 minutes0 minutes2 minutesAir Kerma15 mGy0 mGy15 mGyDose Area Product2.591 mGy-cm20 mGy-cm22.591 mGy-cm2
--- OUTSIDE RECORDS SUMMARY | 2025-07-12 13:37 | XMS_ITS | Clinical Summary ---
Author Organization [facility] Address [id number] [place] [address] Care Team Providers Care Debrander Name Role Phone Nanette Sherwood MD Primary Care Provider [phone] Allergies No known active allergies Medications MedicationSigDispense QuantityRefillsLast FilledStart DateEnd DateStatus CALCIUM CITRATE-VITAMIN D3 ORAL Take by mouth.Active cyanocobalamin, vitamin B-12, 1,000 mcg/mL drops Take by mouth.Active acetaminophen-codeine (TYLENOL #3) 300-30 mg per tablet as needed.Active albuterol (PROVENTIL,VENTOLIN) 2.5 mg /3 mL (0.083 %) nebulizer solution INHALE 1 VIAL VIA NEBULIZER EVERY 4 HOURS06/18/2020Active albuterol (PROVENTIL,VENTOLIN) 2.5 mg /3 mL (0.083 %) nebulizer solution albuterol sulfate 2.5 mg/3 mL (0.083 %) solution for nebulizationActive albuterol (PROAIR HFA) 90 mcg/actuation inhaler every 4 (four) hours.Active calcitonin, salmon, (MIACALCIN) 200 unit/actuation nasal spray as needed.Active budesonide (PULMICORT) 0.5 mg/2 mL nebulizer solution budesonide 0.5 mg/2 mL suspension for nebulizationActive levoFLOXacin (LEVAQUIN) 500 mg tablet Take 500 mg by mouth daily with breakfast.06/08/2020Active salmeteroL (SEREVENT) 50 mcg/dose diskus inhaler Inhale 1 puff 2 (two) times a day. Active tiotropium (SPIRIVA WITH HANDIHALER) 18 mcg per inhalation capsule Place 1 capsule into inhaler and inhale once daily. Active spironolactone (ALDACTONE) 50 mg tablet spironolactone 50 mg tablet TAKE 1 TABLET BY MOUTH DAILY WITH BREAKFAST AND 1 TABLET DAILY WITH LUNCHActive aspirin 81 mg Indications:Cerebrovascular accident (CVA), unspecified mechanism (CMS-HCC)Take 1 tablet (81 mg total) by mouth daily. 30 tablet Active amoxicillin (AMOXIL) 500 mg capsule Take 500 mg by mouth daily.10/05/2020ctive azithromycin (ZITHROMAX) 250 mg tablet Take 500 mg by mouth daily.09/11/2020ctive CEPHalexin (KEFLEX) 500 mg capsule Take 500 mg by mouth daily.10/31/2020ctive dexAMETHasone (DECADRON) 6 mg tablet Take 6 mg by mouth daily.08/29/2020ctive SYNTHROID 100 mcg tablet Take 100 mcg by mouth daily.11/10/2020ctive calcium carbonate (OS-RENETTA) 500 mg calcium (1,250 mg) tablet Take 1,250 mg by mouth daily.Active cholecalciferol (VITAMIN D3) 1,000 units tablet Take 1,000 Units by mouth daily.Active ferrous sulfate 325 (65 FE) mg tablet 05/16/2021ctive furosemide (LASIX) 20 mg tablet daily.Active potassium chloride (KLOR-CON SPRINKLE) 10 MEQ CR capsule 07/27/2021ctive Active Problems ProblemNoted DateDiagnosed DateBenign essential dpmstn9407/31/2021Hypothyroidism 08/03/2020Cerebrovascular accident (CVA)08/03/2020Left temporal lobe infarction 08/03/2020Heart block AV znenjobc48/18/2020Pulmonary yooacbicv84/18/2020Severe obesity (BMI 35.0-39.9) with hpmbpenooxr90/18/2020 Family History Medical HistoryRelationNameCommentsStrokeFatherCancerMotherRelationNameStatus CommentsFatherDeceasedMotherDeceased Social History Tobacco UseTypesPacks/DayYears UsedDateSmoking Tobacco: FormerCigarettesQuit: 07/17/1988Smokeless Tobacco: NeverAlcohol UseStandard Drinks/WeekCommentsNot Currently0 (1 standard drink = 0.6 oz pure alcohol)PHQ-2AnswerDate RecordedTotal Uupfp19010/04/2019ChildcareAnswerDate XhiquffaEeeoppuqaBwxsleo40/20/2020Employment AnswerDate PjgalagzVfredknomoWmcjflj54/20/2020Purpose - LifeAnswerDate Recorded Purpose and direction in qsrdFubnsad03/11/2021ex and Gender InformationValue Date RecordedSex Assigned at BirthNot on fileLegal TmsTssc2110/06/2019 8:14 AM EST Gender IdentityNot on fileSexual OrientationNot on file Last Filed Vital Signs Vital SignReadingTime TakenCommentsBlood Kplgaslu820/6007/31/2021 1:59 PM EST Gddmi236107/31/2021 1:59 PM ESTTemperature--Respiratory Rate--Oxygen Saturation-- Inhaled Oxygen Concentration--Jdblel70.4 kg (217 lb)07/31/2021 1:59 PM ESTHeight 162.6 cm (5' 4 )07/31/2021 1:59 PM ESTBody Mass Index37.25110/01/2020 1:59 PM EST Plan of Treatment Health MaintenanceDue DateLast DoneCommentsDepression Kcabzenar98/09/1959Tobacco Socplbzuu58/09/1959bdominal Aortic Aneurysm (AAA) Gdyjay1103/25/2012Fall Risk Yarrhdgxe47/09/2012RSV ( or age 60+ yrs) (1 - 1-dose 75+ series) 2COVID-19 Vaccine ( season)511/04/2021, 11/13/2020, 10/22/2020Influenza Yfyenkk95, 05/09/2020, 04/16/2019, Additional history existsDTaP,Tdap and Td Vaccines (2 - Td or Tdap)05/09/2030 05/09/2020Zoster (Shingles) OwqpyszDrvzqwnql51/08/2020, 05/09/2020 Medical Devices Not on file Insurance [address] [place] [id number] Care Teams Team MemberRelationshipSpecialtyStart DateEnd Date Nanette Sherwood MD PCP - GeneralFamily Medicine10/06/19
--- OUTSIDE RECORDS SUMMARY | 2025-07-12 13:37 | XMS_ITS | Clinical Summary ---
Author Organization [facility] Address [address] [place] [address] Care Team Providers Care Crusher And Binder Operator Name Role Phone Deven Alves MD Unavailable [phone] Tyler Draper MD Unavailable [phone] Elpidio Wing MD Primary Care Provider +[phone] Allergies Active AllergyReactionsCriticalityNoted DateCommentsSpironolactoneOther (See Comments)09/18/2021 Leg cramps, Hyperkalemia Medications MedicationSigDispense QuantityRefillsLast FilledStart DateEnd DateStatus furosemide (LASIX) 20 mg tablet Take 40 mg by mouth as needed in the morning.06/26/2021ctive potassium chloride (MICRO-K) 10 mEq CR capsule Take 10 mEq by mouth as needed in the morning. Takes when takes lasix.06/26/2021 Active levothyroxine 100 mcg tablet Take 100 mcg by mouth once daily before a meal.11/10/2020ctive cyanocobalamin (VITAMIN B-12) 1,000 mcg tablet Take 1,000 mcg by mouth in the morning.Active aspirin (ECOTRIN LOW STRENGTH) 81 mg delayed release tablet Take 81 mg by mouth once daily before a meal.08/03/2020Active calcium carbonate 1,250 mg (500 mg calcium) tablet Take 1,250 mg by mouth in the morning.Active cholecalciferol (VITAMIN D3) 25 mcg (1,000 unit) tablet Take 1,000 units by mouth in the morning.Active albuterol 90 mcg/actuation HFA inhaler Inhale 2 puffs by mouth as needed.Active calcium carb/vit D3/minerals (CALCIUM-VITAMIN D ORAL) 02/24/2019Active METOPROLOL SUCCINATE ORAL Take 25 mg by mouth in the morning.Active cyanocobalamin (vitamin B-12) 1,000 mcg tablet Take 1,000 mcg by mouth in the morning.02/24/2019Active ipratropium 42 mcg (0.06 %) nasal spray Place 2 sprays in each nostril two times daily. 15 mL ctive Additional Information Patient not taking.Reported on 03/09/2025 azelastine 137 mcg (0.1 %) nasal spray Place 1 spray in each nostril two times daily. 30 mL 6004/21/2024ctive montelukast 10 mg tablet Take 1 tablet (10 mg) by mouth once daily. 90 tablet ctive salmeteroL (SEREVENT DISKUS) 50 mcg/dose disk inhaler Inhale 1 puff by mouth two times daily. 3 each tive tezepelumab-ekko (TEZSPIRE PEN) 210 mg/1.91 mL (110 mg/mL) injection pen Inject 210 mg into the skin every four weeks. 1.91 mL 160/ctive sodium chloride (Hyper-Enrique) 3.5 % NEB solution Inhale 4 mL via nebulizer two times daily. 240 mL 12011/16/2024tive albuterol 2.5 mg/3 mL (0.083 %) NEB solution Inhale 3 mL (2.5 mg) via nebulizer once daily. 270 mL ctive Additional Information Patient not taking.Reported on 03/09/2025 budesonide (PULMICORT RESPULES) 1 mg/2 mL NEB solution Inhale 2 mL (1 mg) via nebulizer two times daily. 360 mL ctive ensifentrine (OHTUVAYRE) 3 mg/2.5 mL Suspension for Nebulization Indications:Asthma-COPD overlap syndrome (CMS/HCC),Dyspnea, unspecified type, COPD exacerbation (CMS/HCC)Inhale 3 mg via nebulizer two times daily. 150 mL 1205Active ensifentrine 3 mg/2.5 mL Suspension for Nebulization Indications:Asthma-COPD overlap syndrome (CMS/HCC)Inhale 3 mg by mouth two times daily. 150 mL 1205Active predniSONE 10 mg tablet pack Take 10 mg by mouth once daily. Take as directed on the package instructions. Active amoxicillin-clavulanate 500-125 mg tablet Take 1 tablet by mouth two times daily.5Active dextromethorphan-guaiFENesin (ROBITUSSIN-DM) 10-100 mg/5 mL syrup Take 5-10 mL by mouth every four to six hours as needed.Active doxycycline monohydrate 100 mg tablet Take 100 mg by mouth in the morning and 100 mg in the evening.Active senna-docusate 8.6-50 mg tablet Take 1 tablet by mouth once daily.Active tiotropium (SPIRIVA WITH HANDIHALER) 18 mcg capsule for inhaler Inhale the contents of 1 capsule (18 mcg) via inhaler once daily. 90 capsule 6ActiveHospital, Clinic, or Other Facility Administered MedicationOrdered DoseRouteFrequencyStart DateEnd DateStatus albuterol (PROAIR HFA) inhaler 4 puff Indications:Asthma-COPD overlap syndrome (CMS/HCC)4 lxxcWlplGXH30/22/2024Active Active Problems Patient Care Coordination No te Formatting of this note migh t be different from the original. PCP Marshall Briceño M.D. ph. [phone]. ProblemNoted DateDiagnosed DateRadiation fibrosis of lung07/02/2023Wheezing 07/02/2023sthma-COPD overlap uuqolpoz69/16/2023Pulmonary cycoecsnqsyt71/16/[address] scan07/02/2023Edema of both upper arms07/02/2023hronic sinusitis 07/02/2023ilateral leg edema8686Ykybt11/01/2021ecurrent pneumonia 07/17/20214959Aqcvcff71/01/2021 Family History Medical HistoryRelationNameCommentsCystic fibrosisBrotherCancerMotherRelation NameStatusCommentsBrotherMother Social History Tobacco UseTypesPacks/DayYears UsedDateSmoking Tobacco: NeverSmokeless Tobacco: Never Tobacco Cessation:Counseling Given: Not Answered Alcohol UseStandard Drinks/WeekCommentsNot Currently1 (1 standard drink = 0.6 oz pure alcohol)Depression (PHQ-9)AnswerDate RecordedLast PHQ-9 Ohipx72109/01/2022 Depression Symptoms Severity Score:411Sex and Gender InformationValue Date RecordedSex Assigned at BirthNot on fileLegal GuzPwtk67/14/2021 10:10 AM EDTGender IdentityNot on fileSexual OrientationNot on file Last Filed Vital Signs Vital SignReadingTime TakenCommentsBlood Rvgjuzsc416/50003/09/2025 12:50 PM EDT Fgidb997603/09/2025 12:50 PM GXKOpnyzqxxfjj07.1 ??C (97 ??F)03/09/2025 12:50 PM EDTRespiratory Wqfu381803/09/2025 12:50 PM EDTOxygen Yzlmofnjym74%03/09/2025 12:50 PM EDTInhaled Oxygen Concentration--Hfpabg74.4 kg (201 lb 6.4 oz)03/09/2025 12:50 PM EBGJzpyzl810 cm (5' 3.4 )03/09/2025 12:50 PM EDTBody Mass Index35.23 03/09/2025 12:50 PM EDT Plan of Treatment DateTypeDepartmentCare Team (Latest Contact Info)Mkuniovsurc41/22/2026 10:45 AM ESTAppointment [facility] Floor [address] [place] [address] 09/07/2025 11:00 AM ESTOffice Visit [facility] Floor [address] [place] [address] Mayra Berg MD [address] [place] [address] [address] [facility] [address] [place] [id number] Health MaintenanceDue DateLast DoneCommentsHepatitis C Uvyytfelr1947 Respiratory Syncytial Virus (RSV) or ages 60 years and older (1 - 1- dose 75+ series)2COVID-19 Vaccine (4 - 2024- season)2025 05/12/2024, 07/02/2023, 06/25/2021, Additional history existsInfluenza Vaccine (#1)509/, 05/12/2024, 05/11/2023, Additional history exists DTaP,Tdap,and Td Vaccines (2 - Td or Tdap)Pneumococcal Vaccines 50years +Ohzqgjlwt82/09/2018, 04/26/2018, 08/04/2017Zoster Recombinant OzmaowwhZwyrdcfct39/08/2020, 07/22/2020, 05/09/2020Respiratory Syncytial Virus (RSV) ages 0 thru 19 monthsAged OutNo longer eligible based on patient's age to complete this topic Additional Health Concerns InfectionOnset DateLast IndicatedCF or CRMS Insurance Care Teams Team MemberRelationshipSpecialtyStart DateEnd Elpidio Wing MD [address] [place] [address] PCP - GeneralFamily Medicine03/31/25 Deven Alves MD [address] [place] [address] [address] [place] [address] CardiologistCardiology10/21/23 Tyler Draper MD [address] [place] [address] [address] [place] [address] Internal Medicine02/08/24
--- OUTSIDE RECORDS SUMMARY | 2025-07-12 13:37 | XMS_ITS | Clinical Summary ---
Author Organization [facility] Address [address] [place] [address] Care Team Providers Care Photographic Artist Name Role Phone Elpidio Wing MD Primary Care Provider [phone] Allergies Active AllergyReactionsCriticalityNoted HjrrUkollwqvNgcxlZmosLsf84/19/2025 GuadomqbxiobewSfvks93/02/2022 Leg cramps, Hyperkalemia Medications MedicationSigDispense QuantityRefillsLast FilledStart DateEnd DateStatus aspirin 81 mg chewable tablet in the morning.Active budesonide (Pulmicort) 0.5 mg/2 mL nebulizer solution budesonide 0.5 mg/2 mL suspension for /11/2019Active cholecalciferol (Vitamin D-3) 25 MCG (1000 UT) tablet Take 1,000 Units by mouth in the morning.Active levothyroxine (Synthroid, Levoxyl) 100 mcg tablet Synthroid 100 mcg tablet Take 1 tablet every day by oral route.02/24/2019Active tiotropium (Spiriva with HandiHaler) 18 mcg inhalation capsule Spiriva with HandiHaler 18 mcg and inhalation jyevprta33/11/2019Active salmeterol (Serevent Diskus) 50 mcg/dose diskus inhaler Serevent Diskus 50 mcg/dose powder for ibjhoeaxyl56/20/2021ctive albuterol 90 mcg/actuation inhaler ProAir HFA 90 mcg/actuation aerosol inhaler Inhale 2 puffs every 4 hours by inhalation route.05/22/2016Active gabapentin (Neurontin) 300 mg capsule Take 300 mg by mouth at bedtime.05/11/2023ctive montelukast (Singulair) 10 mg tablet Take 10 mg by mouth in the morning.07/02/2023ctive potassium chloride ER (Micro-K) 10 mEq ER capsule Indications:NSVT (nonsustained ventricular tachycardia) (CMS/HCC)Take 1 capsule (10 mEq) by mouth once daily as directed. Do not crush or chew. 90 capsule ctive metoprolol succinate XL (Toprol-XL) 25 mg 24 hr tablet Indications:NSVT (nonsustained ventricular tachycardia) (CMS/HCC)TAKE 1 TABLET BY MOUTH AT BEDTIME (DO NOT CRUSH OR CHEW) 90 tablet 5Active furosemide (Lasix) 40 mg tablet Indications:Dyspnea on exertionTAKE 1 TABLET BY MOUTH IN THE MORNING 90 tablet 5Active calcitonin, salmon, (Miacalcin) 200 unit/actuation nasal spray Administer 1 spray into one nostril in the morning.06/01/2025tive Active Problems ProblemNoted DateDiagnosed DateBack pain05/31/2025ystic fibrosis carrier 05/31/2025Former tobacco use05/31/2025Long term current use of inhaled steroid 05/31/2025Lumbar kadwztkwnnsym49/15/2025Prolonged QT xjcdonho21/15/2025 Uncomplicated severe persistent xuhrib7305/31/20250685Hqytgxttljcfh65/07/2025hronic hypoxic respiratory uihxhvz5804/15/2024hronic kidney disease, stage 3a04/15/2024 Macrocytic sjmpuw0304/15/2024 Overview (04/15/2024): noted in 07/21/2023 Cardiology Consult Note page 4. added per OP CDI policy. Mass of leg04/15/2024OSA (obstructive sleep apnea)04/15/2024ecreased ambulation jpnzep93MGUS (monoclonal gammopathy of unknown significance) hronic diastolic heart pcobdiz56/07/2023 Overview (07/28/2023): Noted in 05/21/2023 UT page 1, added per outpatient CDI policy. Abnormal CT scan/hronic gmtzorbsf09/07/2023Edema of both upper armsulmonary fxypvvhgfaot97/16/2023 Overview (07/28/2023): Noted in 05/21/2023 UT page 1, added per outpatient CDI policy. Radiation fibrosis of lung/07/20234624Suktgvlh21enign prostatic hyperplasia with urinary fotswafhyio39ompression fracture of zlmmcgxk32Former woktbr11Hearing lossHigh prostate specific antigen (PSA) History of malignant neoplasm of pwlehgqm61History of B-cell vgyqgeze57OPD with thqacm72idney stone Lymphoma1Malignant neoplasm of prostate Microscopic qjkiryjef35Nasal congestion Neuropathy, armoor urinary stream Ventral obovro87rostate xxuayd9605/21/2023 05/21/2023ilateral leg edemaomplete AV block05/23/2022 History of cerebrovascular vfqoaaej94/07/2022ardiac pacemaker in situ05/23/2022 Mixed khiubtllxatvrtzor97/07/2022enign essential xgywof07 Coughyspnea07/17/2021ecurrent nyrvvoryi69/01/2021 05/21/2023erebrovascular accident (CVA)Left temporal lobe emzkkmneif73Severe obesity (BMI 35.0-39.9) with comorbidity Hypothyroidism12 vxtojqftap83/27/2017 05/21/2023iffuse large B cell cchzgifh84 Encounters DateTypeDepartmentCare PjgnVvwroweanro73/17/2025 2:45 PM EDTOffice Visit [facility] [address] [place] [address] Rodolfo Easton MD Dyspnea on exertion (Primary Dx); Complete AV block (CMS/HCC); History of CVA (cerebrovascular accident); Mixed hyperlipidemia; Cardiac pacemaker in situ05/23/2025 11:00 AM EDTAncillary Procedure [facility] [address] [place] [address] Encounter for implantable defibrillator reprogramming or check05/20/[facility] [address] [place] [address] Rodolfo Easton MD Dyspnea on afujiata27/26/2025[facility] [address] [place] [address] Rodolfo Easton MD NSVT (nonsustained ventricular tachycardia) (CMS/HCC)from Last 3 Months Family History Medical HistoryRelationNameCommentsStrokeFatherRelationNameStatusCommentsFather DeceasedMotherDeceased Social History Tobacco UseTypesPacks/DayYears UsedDateSmoking Tobacco: FormerCigarettes Tobacco Cessation:Counseling Given: Not Answered Alcohol UseStandard Drinks/WeekCommentsNever0 (1 standard drink = 0.6 oz pure alcohol)[place] Safety & EnvironmentAnswerDate RecordedFear of Current or Ex-Partner Not on file10/08/2023Emotionally AbusedNot on file10/08/2023hysically AbusedNot on file10/08/2023Sexually AbusedNot on file10/08/2023hysically or Sexually AbusedNot on file10/08/2023Sex and Gender InformationValueDate RecordedSex Assigned at NpcbjMapz31/01/2025 9:50 AM EDTLegal CmgCgks2902/12/2022 11:54 PM EDT Gender MqpxvgheVywq13/01/2025 9:50 AM EDTSexual OrientationHeterosexual or Jdbfnnyw25/01/2025 9:50 AM EDT Last Filed Vital Signs Vital SignReadingTime TakenCommentsBlood Gsrkmutw252/6806/02/2025 2:51 PM EDT Uljle654206/02/2025 2:51 PM EDTTemperature--Respiratory Vkwz088709/17/2023 11:45 AM ESTOxygen Umpzbahqoz39%06/02/2025 2:51 PM EDTInhaled Oxygen Concentration-- Pjgety90.5 kg (195 lb)06/02/2025 2:51 PM EHELentpc121.6 cm (5' 4 )06/02/2025 2:51 PM EDTBody Mass Index33.4706/02/2025 2:51 PM EDT Plan of Treatment Health MaintenanceDue DateLast DoneCommentsMedicare Annual Wellness (AWV) 1947Depression Nmbhqdmbs02/09/1959Fall Risk Mmcjdvoom81/09/2012COVID-19 Vaccine ( season), 05/12/2024, 07/02/2023, Additional history existsInfluenza Vaccine (#1)509/, 05/11/2023, 05/24/2021, Additional history existsAdult Irflptd36/23/ Pneumococcal Vaccine: 50+ HuvkwPueoncvtc29/09/2018, 04/26/2018, 08/04/2017Zoster KcfernodIwbvddiyc20/08/2020, 07/22/2020, 05/09/2020HIB VaccinesAged OutNo longer eligible based on patient's age to complete this topicHPV VaccinesAged OutNo longer eligible based on patient's age to complete this topicIPV VaccinesAged OutNo longer eligible based on patient's age to complete this topicMeningococcal B VaccineAged OutNo longer eligible based on patient's age to complete this topicMeningococcal VaccineAged OutNo longer eligible based on patient's age to complete this topicRotavirus VaccinesAged OutNo longer eligible based on patient's age to complete this topic Procedures Procedure NamePriorityDate/TimeAssociated DiagnosisCommentsCARDIAC DEVICE CHECK - IN CLINIC - PACEMAKER DUAL CHAMBER W/ VFVAOtycgrz49/07/2025 2:04 PM EDT Encounter for implantable defibrillator reprogramming or check from Last 3 Months Results * CARDIAC DEVICE CHECK - IN CLINIC - PACEMAKER DUAL CHAMBER W/ PROG (05/23/2025 2:04 PM EDT)Anatomical RegionLateralityModalityOtherSpecimen (Source) Anatomical Location / LateralityCollection Method / VolumeCollection Time Received Time Narrative 05/29/2025 9:44 AM EDT Normal device function Authorizing ProviderResult TypeResult StatusPaul Armando MDC IMPLANTABLE CARDIAC DEVICE PROCEDURESFinal Result from Last 3 Months Insurance Care Teams Team MemberRelationshipSpecialtyStart DateEnd Elpidio Wing MD [address] [facility] [address] [place], [place] [id number] PCP - GeneralFamily Qxfakyhf36/15/25
--- OUTSIDE RECORDS SUMMARY | 2025-07-12 13:37 | XMS_ITS ---
Author Organization [facility] Address [address] [place], [place] [address] Care Team Providers Care Athletic Training Internship Name Role Phone Marshall Briceño MD Primary Care Provider [phone] Active Problems ProblemNoted DateDiagnosed DateB12 mcrazpoweg04/27/2017Diffuse large B cell /08/2013 Current Treatment and Therapy Plans No current plan information found. Past Treatment and Therapy Plans
--- OUTSIDE RECORDS SUMMARY | 2025-07-12 13:37 | XMS_ITS | Clinical Summary ---
Author Organization [facility] Address [address] [place] [address] Care Team Providers Care City Attorney Name Role Phone Marshall Briceño MD Primary Care Provider [phone] Allergies Active AllergyReactionsCriticalityNoted DateCommentsSpironolactoneOther: See Nzfmubmo68/02/2022 Leg cramps, Hyperkalemia Medications MedicationSigDispense QuantityRefillsLast FilledStart DateEnd DateStatus PROAIR HFA 90 mcg/actuation inhaler Inhale 1 Puff as instructed as needed. 05/22/2016Active polyethylene glycol 3350 (MIRALAX, GLYCOLAX) 17 gram/dose powder MIX 1 TABLESPOONFUL DIRECTED AND DRINK EVERY AYD126Active acetaminophen-codeine (TYLENOL-COD #3) 300-30 mg per tablet acetaminophen 300 mg-codeine 30 mg tabletActive budesonide (PULMICORT) 1 mg/2 mL nebulizer solution 2 mL.Active ipratropium-albuterol (DUONEB) 0.5 mg-3 mg(2.5 mg base)/3 mL nebu INHALE 1 VIAL VIA NEBULIZER EVERY 6 HOURS NEEDED *DX J44.9*Active spironolactone (ALDACTONE) 50 mg tablet spironolactone 50 mg tabletActive tiotropium (SPIRIVA WITH HANDIHALER) 18 mcg inhalation capsule Active CALCIUM CITRATE-VITAMIN D3 ORAL Take by mouth.Active cyanocobalamin, vitamin B-12, (VITAMIN B-12 ORAL) Take by mouth. Active potassium chloride SR (MICRO-K) 10 mEq CR capsule 06/26/2021ctive furosemide (LASIX) 20 mg tablet q 24 HR.1Active influenza vaccine qs 240 mcg, Patients 65 years and older,, PF, (FLUZONE HIGHDOSE QUAD - PF) 240 mcg/0.7 mL injection Fluzone High-Dose Quad (PF) 240 mcg/0.7 mL IM syringe PHARMACY ADMINISTEREDActive cholecalciferol (VITAMIN D3) 1,000 unit tab tablet Take 1,000 Units by mouth.Active METOPROLOL SUCCINATE ORAL Take 25 mg by mouth once daily.Active doxycycline hyclate (VIBRAMYCIN) 100 mg capsule Take 100 mg by mouth once daily.Active salmeterol (SEREVENT DISKUS) 50 mcg/dose diskus inhaler Inhale 1 Puff as instructed twice daily.Active aspirin, enteric coated (ASPIRIN, ENTERIC COATED) 81 mg EC tablet Take 81 mg by mouth once daily.Active albuterol (PROVENTIL) 2.5 mg /3 mL (0.083 %) nebulizer solution albuterol sulfate 2.5 mg/3 mL (0.083 %) solution for nebulization INHALE 1 VIAL VIA NEBULIZER EVERY 4 HOURS02/24/2019Active TEZSPIRE 210 mg/1.91 mL (110 mg/mL) injection 4Active Active Problems ProblemNoted DateDiagnosed DateB12 bftnawrhkf56/27/2017Diffuse large B cell czyodcmr94/08/2013 Encounters DateTypeDepartmentCare ErniIyswjbetjee56/10/2025 3:00 PM EDTVisit (SP) Office Hematology/Oncology [address] [place] [address] [place] [address] Ginger Bean APRN.TECHNICAL DATA ANALYST MGUS (monoclonal gammopathy of unknown significance) (Primary Dx); History of prostate cancer; Acquired /10/3702Wcdfes85/09/9646Vdhzly56/29/2025Telephone Hematology/Oncology [address] [place] [address] [place] [address] 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, 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 Ordersfrom Last 3 Months Immunizations ImmunizationAdministration DatesNext DueCOVID-19 original vaccine, age 12+ yr, monovalent (PFIZER-BIONTBioPetroClean - PURPLE TOP)11/13/2020,10/22/2020influenza (HD- IIV3) vaccine, age 65+ yr, high dose, trivalent, PF (FLUZONE HIGH-DOSE) 05/11/2023,04/26/2018,08/04/2017influenza (HD-IIV4) vaccine, age 65+ yr, high dose, quadrivalent, PF (FLUZONE HIGH-DOSE)05/24/2021,05/09/2020influenza (IIV4) vaccine, age 6 mo - 64 yr, quadrivalent, PF (AFLURIA, FLUARIX, FLULAVAL, FLUZONE)05/25/2018influenza (LAIV) vaccine, nasal, unspecified formulation 05/25/2018,04/26/2018,08/04/2017influenza (aIIV3) vaccine, age 65+ yr, trivalent, PF (FLUAD)04/16/2019pneumococcal conjugate (PCV13) vaccine, 13 valent (PREVNAR 13)08/04/2017pneumococcal polysaccharide (PPV23) vaccine, 23 valent (PNEUMOVAX 23)05/25/2018,04/26/2018respiratory syncytial virus (RSV) vaccine, adjuvanted (AREXVY)03/21/2024tetanus diphtheria pertussis (Tdap) vaccine, age 7+ yr (ADACEL, BOOSTRIX)05/09/2020zoster (RZV) vaccine, recombinant (SHINGRIX) 07/24/2020,07/22/2020,05/09/2020 Family History Medical HistoryRelationCommentsCystic FibrosisBrotherCancerMotherRelationStatus CommentsBrotherDeceasedMother Social History Tobacco UseTypesPacks/DayYears UsedDateSmoking Tobacco: FwiicuMbvwcaqrmu151 09/06/1968 - 09/06/1988Passive Smoke Exposure: PastSmokeless Tobacco: Never Tobacco Cessation:Counseling Given: Not Answered Alcohol UseStandard Drinks/WeekCommentsYes0 (1 standard drink = 0.6 oz pure alcohol)rarePHQ-2AnswerDate RecordedPHQ-2 plaqj399/09/2025Area Deprivation Index AnswerDate RecordedNational Score (1-100), lower number is lower risk87 10/21/2024State Score (1-10), lower number is lower sgwi416ata from: https://www.neighborhoodatlas.[facility].edu/. Last address used for cfwwrjy[address]rd[address] [facility] [address]287106/06/2024Sex and Gender InformationValueDate RecordedSex Assigned at BirthNot on fileLegal FetYvyp47/02/2012 7:34 AM EST Gender IdentityNot on fileSexual OrientationNot on file Last Filed Vital Signs Vital SignReadingTime TakenCommentsBlood Xzqnrpzr424/6105/26/2025 2:44 PM EDT Lmyuy230505/26/2025 2:44 PM YTMEtpqxodnsos36.3 ??C (97.4 ??F)05/26/2025 2:44 PM EDTRespiratory Yxnm4658 2:44 PM EDTOxygen Qzqsgveebq13%05/26/2025 2:44 PM EDTInhaled Oxygen Concentration--Gruszl06.1 kg (194 lb 3.6 oz)05/26/2025 2:44 PM NYOYibukg924.7 cm (5' 7.99 )04/19/2024 2:18 PM EDTBody Mass Index29.54 04/19/2024 2:18 PM EDT Plan of Treatment DateTypeDepartmentCare Team (Latest Contact Info)Cqchzidcttq02/10/2026 1:45 PM EDTOffice Visit [facility] [address] [place] [address] [place] [address] RV in 6 months with lab11/24/2025 2:00 PM EDTVisit (SP) Office Hematology/Oncology [address] [place] [address] [place] [address] Ginger Bean, DOMINIQUE.TECHNICAL DATA ANALYST [address] [place] [address] RV in 6 months with labHealth MaintenanceDue DateLast DoneCommentsAnxiety Mzorrpojk67/09/1965Depression Rhjqcairx57/09/1965Hepatitis C Hlvmenrkx77/09/1965 Advance Directive Mzlstthukj07/01/2025Medicare Advantage Annual Wellness Visit 5Covid-19 Vaccine ( season), 07/02/2023, 06/09/2023, Additional history existsInfluenza Vaccine (#1)/, 05/11/2023, 05/24/2021, Additional history existsDiabetes Envmqoblc34/10/2028 05/26/2025, 11/15/2024, 04/19/2024, Additional history existsDTaP,Tdap,Td Vaccine (2 - Td or Tdap)Pneumococcal Vaccine: 50+Completed 05/25/2018, 04/26/2018, 08/04/2017Shingrix VquqzweSvsaqyoaw60/08/2020, 07/22/2020, 05/09/2020RSV KjfoxouHcwqtbcox68/05/2024 Procedures Procedure NamePriorityDate/TimeAssociated DiagnosisCommentsPROTEIN ELECTROPHORESIS SERUM (P)Wttbhfx7305/26/2025 3:46 PM EDT MGUS (monoclonal gammopathy of unknown significance) History of prostate cancer PROTEIN, TOTAL (FOR SEPG)Gmhgxgt7005/26/2025 3:46 PM EDT MGUS (monoclonal gammopathy of unknown significance) History of prostate cancer KAPPA/ARDON,FREE,CQUFmzqcnn53/10/2025 3:46 PM EDT MGUS (monoclonal gammopathy of unknown significance) History of prostate cancer IMMUNOFIXATION SCREEN, LMYSQKhumfua65/10/2025 3:46 PM EDT MGUS (monoclonal gammopathy of unknown significance) History of prostate cancer IMMUNOGLOBULINS VEADnjynmq52/10/2025 3:46 PM EDT MGUS (monoclonal gammopathy of unknown significance) History of prostate cancer PROTEIN ELECTROPHORESIS SERUM W/THDZWGEdwnmwt83/10/2025 3:46 PM EDT MGUS (monoclonal gammopathy of unknown significance) History of prostate cancer MONOCLONAL PROTEIN, SERUM (BLOOD)Eswwukw08/05/2025 3:46 PM EDT MGUS (monoclonal gammopathy of unknown significance) History of prostate cancer PSA/PROSTSPECAG ZLLFMbakyyf03/10/2025 3:46 PM EDT MGUS (monoclonal gammopathy of unknown significance) History of prostate cancer COMPREHENSIVE METABOLIC XWVNHRpjbnxe53/10/2025 3:46 PM EDT MGUS (monoclonal gammopathy of unknown significance) History of prostate cancer CBC + EXVHAiptdbm44/10/2025 3:46 PM EDT MGUS (monoclonal gammopathy of unknown significance) History of prostate cancer from Last 3 Months Results * IMMUNOFIXATION SCREEN, SERUM (05/26/2025 3:46 PM EDT)ComponentValueRef Range Test MethodAnalysis TimePerformed AtPathologist SignatureMPA ResultNo M protein is identified.No M protein is identified.05/30/2025 9:08 AM EDT [facility] LABStaff Review (MPA)Reviewed by Dr. Constance Ibarra MD 05/30/2025 9:08 AM [facility] LABSpecimen (Source)Anatomical Location / LateralityCollection Method / VolumeCollection TimeReceived Time BloodBLOOD SPECIMEN / UnknownVenipuncture / Rjjqlfx1605/26/2025 3:46 PM EDT 05/26/2025 3:50 PM EDT Narrative Authorizing ProviderResult TypeResult StatusJaimee Nalini DOTSONCNPLABORATORYFinal ResultPerforming OrganizationAddressCity/State/ZIP CodePhone Number [facility] [address] * PROTEIN, TOTAL (FOR SEPG) (05/26/2025 3:46 PM EDT)ComponentValueRef RangeTest MethodAnalysis TimePerformed AtPathologist SignatureProtein, Total6.56.3 - 8.0 g/dL05/27/2025 11:26 AM [facility] LABSpecimen (Source) Anatomical Location / LateralityCollection Method / VolumeCollection Time Received TimeBloodBLOOD SPECIMEN / UnknownVenipuncture / Dhkdjpe47/05/2025 3:46 PM EDT1 3:50 PM EDT Narrative Authorizing ProviderResult TypeResult StatusJaimee Nalini EDGARN.CNPLABORATORYFinal ResultPerforming OrganizationAddressCity/State/ZIP CodePhone Number [facility] [address] [facility] [place] [phone], * PROTEIN ELECTROPHORESIS SERUM (P) (05/26/2025 3:46 PM EDT)ComponentValueRef RangeTest MethodAnalysis TimePerformed AtPathologist SignatureAlbumin for SPE 3.813.43 - 5.41 g/dL05/30/2025 8:30 AM ED[facility] Alpha 1 Globulin0.390.18 - 0.43 g/dL05/30/2025 8:30 AM EDSELECT [facility] LABAlpha 2 Globulin0.820.42 - 0.98 g/dL05/30/2025 8:30 AM EDT [facility] LABBeta Globulin0.720.61 - 1.17 g/dL05/30/2025 8:30 AM EDSELECT [facility] LABGamma Globulin0.770.53 - 1.51 g/dL 05/30/2025 8:30 AM [facility] LABInterpretation (Prot Electro)No definitive M protein is identified on protein electrophoresis.No definitive M protein is identified on protein electrophoresis.05/30/2025 8:30 AM [facility] LABM-Protein Xeaedaxi17/14/2025 8:30 AM EDT [facility] LABComment:Not Applicable.M-Protein Concentration 0.00<=0.00 g/dL05/30/2025 8:30 AM [facility] LABSPE Staff ReviewReviewed by Dr. Constance Ibarra MD05/30/2025 8:30 AM [facility] LABSpecimen (Source)Anatomical Location / LateralityCollection Method / VolumeCollection TimeReceived TimeBloodBLOOD SPECIMEN / Unknown Venipuncture / Zeoztzi3105/26/2025 3:46 PM EDT1 3:50 PM EDT Narrative [facility] - 05/30/2025 8:30 AM EDT Serum electrophoresis test was performed using the [employer] V8 NEXUS capillary electrophoresis method. Results obtained with different assay methods or kits cannot be used interchangeably. Authorizing ProviderResult TypeResult StatusArabella Gayle APRN.CNPLABORATORYFinal ResultPerforming OrganizationAddressCity/State/ZIP CodePhone Number [facility] [address] [facility] [address] [address], [place] * (ABNORMAL) KAPPA/ARDON,FREE,SER (05/26/2025 3:46 PM EDT)ComponentValueRef Range Test MethodAnalysis TimePerformed AtPathologist SignatureKappa Free, Serum25.9 (H)3.3 - 19.4 mg/L1 5:31 PM EDTCGERMAN [facility]OSPITAL LAB Comment: Rarely, increased serum free light chains levels may not be detected or accurately quantified due to prozone phenomenon or in high viscosity samples using this immunoturbidimetric assay. Correlation with other laboratory results and clinical findings is recommended. The [place] Free Light Chain was performed using the Binding Site Opt[employer] immunoturbidimetric method. Result obtained with different assay methods or kits cannot be used interchangeably. Lambda Free, Serum16.15.7 - 26.3 mg/L1 5:31 PM EDSELECT [facility] LABComment: Rarely, increased serum free light chains levels may not be detected or accurately quantified due to prozone phenomenon or in high viscosity samples using this immunoturbidimetric assay. Correlation with other laboratory results and clinical findings is recommended. The Lambda Free Light Chain was performed using the Binding Site Optilite immunoturbidimetric method. Result obtained with different assay methods or kits cannot be used interchangeably. ?? K/L Ratio, Serum1.610.26 - 1.6505/29/2025 5:31 PM EDSELECT [facility] LABSpecimen (Source)Anatomical Location / LateralityCollection Method / VolumeCollection TimeReceived TimeBloodBLOOD SPECIMEN / UnknownVenipuncture / Psnxoco5705/26/2025 3:46 PM EDT1 3:50 PM EDT Narrative Authorizing ProviderResult TypeResult StatusArabella Gayle APRN.CNPLABORATORYFinal ResultPerforming OrganizationAddressCity/State/ZIP CodePhone Number [facility] [address] [place] [phone], [place] * PROSTATE-SPECIFIC ANTIGEN DIAGNOSTIC (05/26/2025 3:46 PM EDT)ComponentValueRef RangeTest MethodAnalysis TimePerformed AtPathologist SignaturePSA0.24<2.60 ng/mL05/27/2025 11:42 AM EDSELECT [facility] LABComment:Total PSA test methodology used is the Electrochemiluminescence Immunoassay by [employer]. Total PSA values by differing methodologies cannot be interchanged.Specimen (Source)Anatomical Location / LateralityCollection Method / VolumeCollection TimeReceived TimeBloodBLOOD SPECIMEN / Unknown Venipuncture / Codsirq4605/26/2025 3:46 PM EDT1 3:50 PM EDT Narrative Authorizing ProviderResult TypeResult StatusJaimee Nalini MAINTENANCE TRUCK DRIVER.CNPLABORATORYFinal ResultPerforming OrganizationAddressCity/State/ZIP CodePhone Number [facility] [address] [place] [phone], [place] * IMMUNOGLOBULINS,IGG,IGA,IGM (05/26/2025 3:46 PM EDT)ComponentValueRef Range Test MethodAnalysis TimePerformed AtPathologist YotfjwsnzAiX948729 - 1,600 mg/dL05/27/2025 9:59 PM EDTCGERMAN [facility]OSPITAL AZWFzI71217 - 400 mg/dL05/27/2025 9:59 PM EDSELECT [facility] FMWYvU9479 - 230 mg/dL 05/27/2025 9:59 PM EDSELECT [facility] LABSpecimen (Source) Anatomical Location / LateralityCollection Method / VolumeCollection Time Received TimeBloodBLOOD SPECIMEN / UnknownVenipuncture / Hrdujkf6205/26/2025 3:46 PM EDT1 3:50 PM EDT Narrative Authorizing ProviderResult TypeResult StatusJaimee Nalini MAINTENANCE TRUCK DRIVER.CNPLABORATORYFinal ResultPerforming OrganizationAddressCity/State/ZIP CodePhone Number [facility] [address] [place] [phone], [place] * (ABNORMAL) COMPREHENSIVE METABOLIC PANEL (05/26/2025 3:46 PM EDT)Component ValueRef RangeTest MethodAnalysis TimePerformed AtPathologist Signature Protein, Total7.06.3 - 8.0 g/dL05/27/2025 11:35 AM [facility] LABAlbumin4.23.9 - 4.9 g/dL05/27/2025 11:35 AM [facility] LABCalcium, Total9.28.5 - 10.2 mg/dL05/27/2025 11:35 AM [facility] LABBilirubin, Total0.60.2 - 1.3 mg/dL05/27/2025 11:35 AM [facility] LABAlkaline Obmqzpzmtiq73668 - 113 U/L 05/27/2025 11:35 AM [facility] NTCMOC93(L)14 - 40 U/L 05/27/2025 11:35 AM [facility] JDGZNB9094 - 54 U/L 05/27/2025 11:35 AM [facility] QLXDnvxfqb8525 - 99 mg/dL 05/27/2025 11:35 AM [facility] LABComment: The [place] Diabetes Association (ADA) provides guidance for cutoff values for fasting glucose andrandom glucose. The ADA defines fasting as no [...] [place] [employer] Association. Diabetes Care. 2016.39(Suppl 1). KCZ681 - 24 mg/dL05/27/2025 11:35 AM [facility] LAB Creatinine1.030.73 - 1.22 mg/dL05/27/2025 11:35 AM [facility] JOWMgecpz701948 - 144 mmol/L10/06/2025 11:35 AM [facility] LABPotassium4.83.7 - 5.1 mmol/L1 11:35 AM [facility] ETFZwioxcqm49005 - 107 mmol/L1 11:35 AM [facility] PYGHP56449 - 30 mmol/L1 11:35 AM [facility] LABAnion Grt467 - 15 mmol/L1 11:35 AM [facility] LABEstimated Glomerular Filtration Rate74>=60 mL/min/1.73m 05/27/2025 11:35 AM [facility] LABComment:Estimated Glomerular Filtration Rate (eGFR) is calculated using the 2020 CKD-EPI creatinine equation. This equation utilizes serum creatinine, sex, and age as parameters. The creatinine assay has traceable calibration to isotope dilution- mass spectrometry. Refer to KDIGO guidelines for clinical interpretation. In patients with unstable renal function, e.g. those with acute kidney injury, the eGFRmay not accurately reflect actual GFR.Specimen (Source)Anatomical Location / LateralityCollection Method / VolumeCollection TimeReceived TimeBloodBLOOD SPECIMEN / UnknownVenipuncture / Dqtinkt6405/26/2025 3:46 PM EDT1 3:50 PM EDT Narrative Authorizing ProviderResult TypeResult StatusJaimee Nalini FOX.CNPLABORATORYFinal ResultPerforming OrganizationAddressCity/State/ZIP CodePhone Number [facility] [address] [place] [address], * (ABNORMAL) COMPLETE BLOOD COUNT AND DIFFERENTIAL (05/26/2025 3:46 PM EDT) ComponentValueRef RangeTest MethodAnalysis TimePerformed AtPathologist SignatureWBC4.053.70 - 11.00 k/uL05/26/2025 3:53 PM EDTNORTHCOAST [facility] LABRBC3.23(L)4.20 - 6.00 m/uL05/26/2025 3:53 PM EDTNORTHCST [facility] XODQgwqqwgjws39.0(L)13.0 - 17.0 g/dL05/26/2025 3:53 PM EDTNORTHCOAST [facility] ZJKFrajgqeqyr17.3(L)39.0 - 51.0 % 05/26/2025 3:53 PM EDTNORTHCOAST [facility] MYWKCU881.3(H)80.0 - 100.0 fL05/26/2025 3:53 PM EDTNORTHCOAST [facility] HJJUHP37.1(H) 26.0 - 34.0 pg05/26/2025 3:53 PM EDTNORTHCOAST [facility] LABMCHC 31.230.5 - 36.0 g/dL05/26/2025 3:53 PM EDTNORTOAST [facility] LABRDW-CV16.3(H)11.5 - 15.0 %05/26/2025 3:53 PM EDTNORTFORMERLY [facility] LABPlatelet Gjpxo113519 - 400 k/uL05/26/2025 3:53 PM EDTNORTSA[facility]ITAL[facility] WUXXZC34.19.0 - 12.7 fL05/26/2025 3:53 PM EDTNORTSAINT JOHN'S [facility]OSPITALST [facility] LABNeutrophils %35.5%05/26/2025 3:53 PM EDTNORTSAINT JOHN'S [facility]OSPITALST [facility] LABAbs Neut1.44(L)1.45 - 7.50 k/uL05/26/2025 3:53 PM EDTNORTSAINT JOHN'S [facility]PITALST [facility] LABLymphocytes %22.0%05/26/2025 3:53 PM EDTNORTOAST [facility] LABAbs Lymph0.89(L)1.00 - 4.00 k/uL 05/26/2025 3:53 PM EDTNORTHCOAST [facility] LABMonocytes %39.0% 05/26/2025 3:53 PM EDTNORTSAINT [facility]ITAL[facility] LABAbs Mono1.58(H) <0.87 k/uL05/26/2025 3:53 PM EDTNORTSAINT JOHN'S [facility]OSPITALST [facility] LAB Eosinophils %1.0%05/26/2025 3:53 PM EDTNORTFORMERLY [facility] LAB Abs Eosin0.04<0.46 k/uL05/26/2025 3:53 PM EDTNOJ.[facility] LABBasophils %0.5%05/26/2025 3:53 PM EDTNOJ.W. [facility]BY [facility] LAB Abs Baso<0.03<0.11 k/uL05/26/2025 3:53 PM EDTNORTFORMERLY [facility] LABImmature Granulocytes %2.0%05/26/2025 3:53 PM EDTNOJ.W. RUBY [facility]OR[facility] LABAbs Immature Gran0.08<0.10 k/uL05/26/2025 3:53 PM EDTROCKEFE[facility] LABNRBC0.0/100 WBC05/26/2025 3:53 PM EDTROCKEFE[facility] LABAbsolute nRBC<0.01<0.01 k/uL05/26/2025 3:53 PM EDT [facility] LABDiff YfznYfyg81/10/2025 3:53 PM EDT [facility] LABSpecimen (Source)Anatomical Location / LateralityCollection Method / VolumeCollection TimeReceived TimeBloodBLOOD SPECIMEN / UnknownVenipuncture / Evzbzpn2105/26/2025 3:46 PM EDT1 3:50 PM EDT Narrative Authorizing ProviderResult TypeResult StatusJaimee Nalini MAINTENANCE TRUCK DRIVER.CNPLABORATORYFinal ResultPerforming OrganizationAddressCity/State/ZIP CodePhone Number [facility] [address] [place] [address] from Last 3 Months Insurance Care Teams Team MemberRelationshipSpecialtyStart DateEnd Date Marshall Briceño MD [address] [place] [address] [facility] Vkmwsefd41/7/23
--- NOTE | 2025-07-12 13:40 | CT_ITS ---
The [address] [address] Patient Name: CHIKI FOLEY MRN: [id number] date: 1945 Sex: M Assigned Patient Location: CT Current Patient Location: CT Accession/Order Number: [id number] Exam Date: 07/12/2025 13:45 Report Date: 07/12/2025 17:23 At the request of: NON-STAFF PHYSICIAN MD Procedure: CT chest wo con CT CHEST WITHOUT IV CONTRAST: CLINICAL HISTORY: Recurrent Pneumonia COMPARISON: 03/02/2025 and 03/26/2025 TECHNIQUE: Spiral images were obtained through the chest without IV contrast. This CT exam was performed using one or more following dose reduction techniques: Automated exposure control, adjustment of the mA and/or kV according to patient size, or use of iterative reconstruction technique. FINDINGS: Mediastinum:Mild cardiomegaly. Pacemaker leads. Coronary disease. Right hilar calcified granulomas. No pathologically enlarged mediastinal or hilar adenopathy. Lungs:Emphysema changes with areas of scarring.. Similar interstitial prominence right upper lobe anteriorly. Stable calcified granuloma right upper lobe anteriorly. No acute disease effusion or pneumothorax. Abd:[There are vascular calcifications.] Soft tissues/Bones: [T5 vertebra plana deformity.. T12, L1 and L2 compression fractures noted with band sclerosis could raise possibly for subacute fractures.] CT/CT chest wo con IMPRESSION: Chronic interstitial thickening and mild scattered scarring involving the lungs. Negative acute airspace disease. Suspect new, likely subacute, compression deformities T12-L2 Impression dictated by: Liang Barajas M.D. 07/12/2025 5:23 PM Dictation Location: [employer] Electronically authenticated by: [id number] Y Date: 07/12/2025 17:23
== END 2025-07-12 13:35 | disposition home or self-care (01) ==
LOC: CT 13:34
PROVIDERS: PCP Family Medicine
DX: J18.9 Pneumonia, unspecified organism (principal)
CPT/HCPCS: 71250